=== PATIENT | female | born 1960 | race Caucasian/White ===

== ENCOUNTER 2017-12-05 11:00 | Outpatient (RCR) | payer MEDICAID, SELFPAY ==
--- NOTE | 2017-10-26 11:02 | HP.OTEVAL_ITS ---
Patient's Visit Information MARIA ESTHER PERAZA is a 57 year old F, referred to Occupational Therapy by Willard Epperson, with a diagnosis of Multiple Scerlosis. Date of Evaluation: 10/26/17 Occupational Therapist: Ariela Cao - Subjective Subjective: Maria Esther noted that diagnosed with MS two years ago. She noted that Dr. Epperson ordered therapy. Noted that dislocated shoulder a long time ago. Notes sister in [place] that she seems to indicate sister helps at times, brother who live [facility], and youngest brother this past July and she noted I took it pretty hard. I still think of him often. Notes she is not working and has previously worked at [employer] at [facility]. - Pain Right Shoulder 3 Pain Intensity Range: 3, 5 Left Shoulder 0 Pain Intensity Range: 0 Bilateral Hand 0 Pain Intensity Range: 3 - ROM Shoulder: WFL Elbow: WFL Forearm: WFL Wrist: flex R 0-70, L 0-58; ext R 0-56, L 0-59 ROM Comments: Increased difficulty following 1 step commands with visual demo. Need 1 steps with phyiscal prompt. - Strength Shoulder: R 3+/5; L 3+/5 Elbow: R 3+/5; L 3+/5 Forearm: R 3+/5; L 3+/5 Statistical Methods Professor: R 44, L 43 Lateral Pinch: R 12, L 11 Tripod Pinch: R 12, L 10 Tip-to-Tip Pinch: R 9; L 6 - Edema Other: none noted at this time. - Sensation Thumb: R 3.61, L 3.61 Index: R 3.84, L 3.22 Middle: R 3.84, L 4.08 Ring: R 3.22, L 4.17 Little: R 2.83 , L 4.08 - Cognitive Skills Follows Directions: Yes - 1-2 step only Oriented to (Check all that apply): Place Cognitive Comments: ST to treat; OT to supplement carryover during self-care tasks. - Nine Hole Peg Right: 33.32 s Left: 37.99s - DASH-Disabilities of Arm, Shoulder& Hand DASH Sum: 59 - Goals Goal:: Maria Esther to increase B UE strength to 4/5 for B UE to promote increased endurance and strength for ADL/IADls 4/5 trials 80% of the time time by d/c. Goal:: Patty to be mod I to understand and compensate for some decrease sensation in B hands to maintain (I) and promote safety 4/5 trials 805 of th etime by d/c. Goal:: Maria Esther to be mod I to complete energy conservation techniques with use of a/e and compensations as needed to return to all ADL/IADLs with minimal fatgiue throughout the day by d/c. Goal:: Maria Esther to be mod I to follow through with techniques provide to maximize (I) and minimize fatigues for all ADL/IADLS 80% of the time by d/c. - Rehabilitation General Assessment: Maria Esther arrived for OT eval on this date. She noted diagnosed with MS two years ago. She has made some compensations with self-care routine but noted that fatigue is limiting her. She currently used hand-held shower head, straight cane for mobility with hand held assist, shower chair, life alert button, 1x grab bar in tub, & standard commode. OT to work on structuring self-care routine to promote maximize (i) and minimizing fatigue. Will educate on further a/e and compensations for home. Additionally, will be addressing UE strength in progressive but tolerable manner with MS related symptoms to help promote endurance needed for ADL/IALDs. POC established for 1x 4 weeks for 30-60 mins sessions. Rehabilitation Potential: Fair - Anticipated Interventions Anticipated Interventions: A/AAROM/PROM, Strengthening, Joint Protection/Energy Conservation, Ergonomic Education, Fine Motor Coord/Jon, Neuro Reeducation, ADL Training, Education re assistive Equipment, Caregiver Training, Home Program - Visit Plan Frequency: 1x/Week Duration: 4 Weeks General Plan: Maria Esther to complete OT for energy conservation training, education and use of compensations and adaptations through a/e and other related techniques, as well as progressive B UE strengthening program with special consideration to symptoms of fatigue to promote increased endurance, strength, and further managing symptoms of fatigue. TEXT: Thank you for the opportunity to evaluate your patient. For Medicare and Medicare HMO plans, please review the plan of care and approve it. It will need to be FAXED BACK to us at [phone] for Medicare purposes. Please let me know if there are questions or concerns regarding this plan of care. Physician Signature: Date:
--- NOTE | 2017-10-26 12:44 | HP.PTEVAL ---
Patient's Visit Information BRITNEY PERAZA is a 57 year old F referred to Physical Therapy by Willard Epperson with a diagnosis of MULTIPLE SLCEROSIS. Date of Evaluation: 10/26/17 Physical Therapist: Valerie Collins - Visit Plan Frequency: 2x /Week Duration: 4-6 Weeks Plan: POSTURE CORRECTION/STRENGTHENING, INSTRUCTION IN APPROPRIATE BODY MECHANICS AND ACTIVITY MODIFICATIONS. *GAIT AND TRANSFER TRAINING* DLS STARTING WITH A NEUTRAL SPINE PROGRESSING ROM TOLERATED. PAWAN LE ROM, STRETCHING AND STRENGTHENING. HEP INSTRUCTION. - Subjective Subjective: Diagnosis: MS. Work/Leisure: UNEMPLOYEED. Disability: NO. Present symptoms: RIGHT HIP, THIGH AND LEG PAIN. PATIENT DENIES PAWAN LE NUMBNESS AND TINGLING. DENIES LBP BUT STATES SHE USE TO HAVE LBP. DENIES FOOT PAIN, NUMBNESS OR TINGLING. STATES SHE GETS LEG CRAMPS A LITTLE BIT. Present since: COUPLE OF YEARS. Pain Scale: Worst - 5/10 Least - 3/10 - CONSTANT. Currently: 09/12. Commenced as a result of: NO APPARENT REASON BUT DOES REPORT SHE DISLOCATED HER KNEE A LONG TIME AGO WORKING. Symptoms at onset: RIGHT HIP. Worse: WEATHER, GETTING OLD, WHEN I GET TIRED, TOO MUCH STANDING AND WALKING. Better: SITTING DOWN, ASPER CREAM. Disturbed sleep: NO. Previous history/Previous treatment: I'VE BEEN TO A [facility] 3 OR 4 TIMES BUT I WILL NEVER GO AGAIN. SHE THINKS IT WAS ABOUT 5 YEARS AGO THAT SHE WENT FOR HER BACK. Coughing/sneezing/straining: NEGATIVE. Gait: PATIENT REPORTS SHE GOT A WALKER ABOUT 5 YEARS AGO BUT IT DOESN'T HAVE WHEELS. SHE REPORTS SHE USES IT IN HER HOUSE BUT SHE TAKES THE CANE WHEN SHE GOES OUT BECAUSE THE WALKER IS A PAIN IN THE BUTT. Difficulty initiating urinatin: SOMETIMES. Accidents: NO. Unexplained weight loss: NO. Imaging: PATIENT REPORTS RECENT MRI FOR MS IN [place] AT [facility]. PMH/Recent major surgery: MS. DEPRESSION. HEART CATH - TAKES ATENOLOL. OTHER: PATIENT REPORTS SHE DROVE HERSELF HERE TODAY AND PARKED CLOSE POSSIBLE AND WALKED IN WITH HER CANE FROM THE PARKING LOT BY HERSELF. LIVES ALONE. DRIVES. GROCERY SHOPS, COOKS AND CLEANS BUT HAS HELP WITH CLEANING. - Objective Sitting/Standing Posture: POOR. SLOUCHED. FORWARED HEAD, ROUNDED SHOULDERS AND INCREASED KYPHOSIS. POOR POSTURAL STRENGTH. Other Observations: PATIENT WAS WALKED BY THIS THERAPIST FROM OT TO A PT TREATMENT ROOM AND REQUIRED +1 ASSIST IN ADDITION TO USE OF HER CANE TO MAINTAIN BALANCE. PATIENT HAD SPEECH THERAPY AND OT CONSULTS PRIOR TO THIS PT EVAL TODAY. SHE WALKS WITH INCREASED TRUNK FLEX, DECREASED PAWAN STRIDE LENGTH, DECREASED CADANCE AND GREATER DIFFICULTY ADVANCING LLE THAN RIGHT THEREFORE USES CANE IN THE RIGHT HAND TO HELP THE LLE. GAIT TRAINIING WITH FWW. SHE HAS A STANDARD WALKER AT HOME. SHE DOES MUCH BETTER WITH THE WALKER THAN THE CANE. RECOMMEND GAIT TRAINING WITH FWW FOR SAFETY. PATIENT GETS TOO FAR BEHIND WALKER AND BENDS TOO FAR FORWARD WITHOUT CUEING. STEPS NOT TESTED. Motor deficit: TRUNK AND PAWAN LE WEAKNESS LLE > RLE DESPITE THE FACT THAT THE PAIN IS IN HER RIGHT LE. RIGHT LE: HIP 4-/5, KNEE EXT 4/5, KNEE FLEX 4-/5, ANKLE DORSIFLEX 4-/5. LLE: HIP 3+/5, KNEE EXT 3-/5, KNEE FLEX 3-/5, ANKLE DORSIFLEX 3-/5. ROM deficit: TIGHT PAWAN HIP FLEXORS, HS'S AND GASTROC SOLEUS COMPLEX'S. Core strength: POOR. Palpation: NO ACUTE TENDERNESS IN TRUNK OR LE'S. Transfers: INDEP TRANSFER SIT TO SUPINE WITH PATIENT ASSISTING HER LLE ONTO THE TABLE WITH HER UE'S. +1 MIN ASSIST REQUIRED SUPINE TO SIT. INDEP CAR TRANSFERS OBSERVED BY THIS PT. - Goals Goal 1:: INDEP AND SAFE GAIT ON ALL SURFACES WITH LEAST ASSISTIVE DEVICE INCLUDING STEPS. Goal Time Frame: 4-6 Weeks Goal 2:: INCREASE FUNCTION STRENGTH OF TRUNK AND PAWAN LE'S TO EASE ADLS. Goal Time Frame: 4-6 Weeks Goal 3:: INDEP AND SAFE TRANSFERS Goal Time Frame: 4-6 Weeks Goal 4:: INDEP HEP Goal Time Frame: 4-6 Weeks - Rehabilitation Potential Rehabilitation Potential: Fair - Anticipated Interventions Patient/Client Instruction: Educate patient on: Condition, Plan of Care, Risk Factors, Benefits of Fitness Program For the Purpose of:: To improve self management Therapeutic Exercise to Include: Strength training, Endurance training, Balance training, Body mechanics, Postural training, Flexibilty training, Gait and locomotor training, Passive ROM, Active ROM, Dynamic Lumbar Stabilization For the Purpose of:: To increase ROM, To improve muscle performance and motor function, To improve ability to perform ADL's, To increase tolerance to activity/condition/position, To improve ability of physical actions for home/community/work/leisure, To improve gait and locomotor functions Manual Therapy Techniques to Include: Passive ROM, Soft tissue mobilization Comment: STM RIGHT HIP AND LEG. PROM PAWAN LE'S. For the Purpose of:: To decrease pain, To increase ROM Thermo therapy (hot pack): Yes - RLE Ultrasound (thermal/non thermal): Yes - RIGHT HIP For the Purpose of:: To decrease pain Thank you for the opportunity to evaluate your patient. For Medicare and Medicare HMO plans, please review the plan of care and approve it. It will need to be FAXED BACK to us at [phone] for Medicare purposes. Please let me know if there are questions or concerns regarding this plan of care. Physician Signature: Date:
--- NOTE | 2017-10-26 14:36 | HP.SP.AD ---
History - History Date of Eval: 10/26/17 Medical Diagnosis (from RX): Multiple sclerosis (G35) Previous speech therapy: No Other Relevant Medical History/Diagnoses/Surgery: No further reported past medical history. 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 Natural dentition, missing dentition (x3), prior restorative work completed. Mild halitosis. Subjective Dysarthria/Motor - Subjective Subjective: Moderate dysarthria marked by articulatory imprecision with mild hypophonia complicated by tachyphasia, impairing listener comprehension (approx. 50-75% intelligible). Voice Handicap Index (VHI) - I VHI Administered: Yes VHI: Patient completed the Voice Handicap Index, which is a 30 item, self administered questionnaire that asks an individual to describe their voice and the effects of their voice on their life. Three subscales cover the areas of functional, emotional, and physical aspects of the voice disorders. Points from the questions can be combined to assign a total score, or they can be combined by subscale. Results for the VHI are as follows: Date: 10/26/17 - VHI Test Functional: 28 Physical: 23 Emotional: 29 Total Severity Rating: Severe (61-120) - Comments VHI total score: 80 -: Severe Subjective Clinical Impression - Adult Clinical Impression Diplophonia: the presence of two tones or pitches heard simultaneously during phonation: Present Strained-strangled: perceived strain or pushed vocal quality at the onset of and during phonation: Present - Vocal Resonance Hypernasality: excessive nasality resulting in increased sound diverted nto the nasal airway: Present Objective Voice - Objective data Objective Data: Objective data: Sound pressure level (SPL acoustic correlation of vocal loudness) was measured with a sound level meter at a distance of 40 cm from the patient's mouth. Average conversational loudness is 70-80 dB and sustained phonation duration is 15 to 20 seconds for a typical adult. Sustained Phonation Intensity (dB SPL): 87.63 Sustained Phonatin duration (seconds): 17.44 Is the individual stimulable to increase vocal intensity: Yes Vocal Intensity at Sentence Level (dB SPL): 67.79 Vocal Intensity at Paragraph Level (dB SPL): 67.36 Vocal Intensity at Conversational Level (dB SPL): 63.85 Plan - Plan Plan: Pt. requires continued skilled speech-language intervention targeting moderate dysarthria secondary to the diagnosis of multiple sclerosis. Pt. further reporting difficulties with memory and attention, though prefers to focus on voice / articulation deficits prior to further workup targeting cognitive communication abilities. Further recommend completion of a modified barium swallow study due in part to the significance of dysarthria, diagnosis of multiple sclerosis, compromised cognition, and presence of sialorrea, all indicators for dysphagia and higher likelihood for silent component. Pt. further demonstrating gait abnormalities, and suboptimal oral health (halitosis), suggesting lower tolerance to tracheobronchial infiltration and higher risk factors for aspiration pneumonia. - Recommendations MBS: Yes Treatment Warranted: Yes - Frequency Frequency: 1x/Week Duration: 6 Months - Prognosis Prognosis: Excellent - Goals that are Established: Determination:: Goals will be added/modified as deemed necessary and appropriate. Therapy will be discontinued when results of re-evaluation indicate therapy is no longer needed or lack of progress has been documented. - Goal #1-5 Goal #1: Pt. will utilize recommended compensatory articulation techniques (increased vocal intensity, reduced rate of speech, over-articulation) to facilitate improved speech intelligibility during expressive communication attempts with both familiar and unfamiliar listeners to facilitate highest level of independent functioning within the home environment and community independently / with less than 2 cues during session, in 2 out of 3 sessions. Goal #2: Pt. will demonstrate increased average vocal intensity levels during conversational speech exercises to 68-73 dB by implementation of established breathing techniques and completion of vocal strengthening exercises to facilitate improved subglottal air pressure and improved speech intelligibility during longer expressive communication attempts, with minimal cueing provided by the clinician in 2 out of 3 sessions. Education - Patient has Indicated that the Following Identified Educational Needs: None The Patient has indicated that they have no educational or learning abilities that may effect their care.: Yes - Patient Instruction Patient Education: Diagnosis, Treatment Plan Person Taught: Patient Teaching Method: Discussion Response to teaching: Verbalize understanding
--- NOTE | 2017-12-05 12:01 | HP.PTDCSUM_ITS ---
HP - PT D/C Summary It has been my pleasure to treat BRITNEY PERAZA under orders from Willard Epperson, for the diagnosis of MULTIPLE SLCEROSIS for a total of 5 visit(s). Discharge Date: 12/05/17 Please see the following information for a summary of their discharge status. - Subjective Subjective: PATIENT REPORTS SHE DOES NOT WANT TO HAVE ANYMORE PT. STATES HER RIGHT HIP ISN'T BOTHERING HER MUCH NOW. PATIENT DENIES ANY RECENT FALLS. STATES SHE IS DOING THE EX'S WE GAVE HER. WORKING ON GETTING FWW. - Pain Right Hip Pain Intensity (Out of 10): 0 - Overall Improvement % Improvement: 50 - Objective Objective/Function: PATIENT WAS WALKED BY THIS THERAPIST FROM OT TO A PT TREATMENT ROOM AND REQUIRED SUPERVISION TO CONTACT GUARD ASSIST IN ADDITION TO USE OF HER CANE TO MAINTAIN BALANCE. SHE WALKS WITH INCREASED TRUNK FLEX, DECREASED PAWAN STRIDE LENGTH, DECREASED CADANCE AND GREATER DIFFICULTY ADVANCING LLE THAN RIGHT THEREFORE USES CANE IN THE RIGHT HAND TO HELP THE LLE. PATIENT REPORTS SHE HAS NOT GOT A FWW YET BUT SHE CALLED [facility] AND WILL FOLLOW UP. SHE HAS A STANDARD WALKER AT HOME. SHE IS STILL UNSAFE WITH THE CANE. RECOMMEND GAIT TRAINING WITH FWW FOR SAFETY AGAIN. Motor deficit: TRUNK AND PAWAN LE WEAKNESS LLE > RLE DESPITE THE FACT THAT THE PAIN IS IN HER RIGHT LE. RIGHT LE: HIP 4-/5, KNEE EXT 4/5, KNEE FLEX 4-/5, ANKLE DORSIFLEX 4-/5. LLE: HIP 3+/5, KNEE EXT 3-/5, KNEE FLEX 3-/5, ANKLE DORSIFLEX 3-/5. ROM deficit: TIGHT PAWAN HIP FLEXORS, HS'S AND GASTROC SOLEUS COMPLEX'S. Core strength: POOR. Palpation: NO ACUTE TENDERNESS IN TRUNK OR LE'S. Transfers: INDEP TRANSFER SIT TO SUPINE WITH PATIENT ASSISTING HER LLE ONTO THE TABLE WITH HER UE 'S. INDEP SUPINE TO SIT TRANSFER DEMONSTRATED TODAY. HEP - PATIENT ABLE TO DEMONSTRATE INDEP HEP EVEN WITHOUT SHEETS TODAY. PATIENT CONTINUES TO USE CANE INSTEAD OF WALKER OUTSIDE HOME DESPITE RECOMMENDATIONS FOR WALKER BUT IS WORKING ON GETTING A FWW WHICH I THINK WILL BE MORE AMENABLE TO PATIENT. - Goals Goal 1:: INDEP AND SAFE GAIT ON ALL SURFACES WITH LEAST ASSISTIVE DEVICE INCLUDING STEPS. Goal Progress: Not Progressing Goal 2:: INCREASE FUNCTION STRENGTH OF TRUNK AND PAWAN LE'S TO EASE ADLS. Goal Progress: Not Progressing Goal 3:: INDEP AND SAFE TRANSFERS Goal Progress: Not Progressing Goal 4:: INDEP HEP Goal Progress: Progressing - Plan Plan: D/C AT PATIENTS REQUEST. - D/C Information If there are questions or concerns regarding this patient's physical therapy, please feel free to call me at [phone]. Thank you for the referral of this patient. Sincerely, Valerie Collins
--- NOTE | 2017-12-05 12:27 | HP.OTDCSUM_ITS ---
HP - OT D/C Summary It has been my pleasure to treat MARIA ESTHER PERAZA under orders from Willard Epperson, for the diagnosis of Multiple Scerlosis for a total of 5 visit(s). Please see the following information for a summary of their discharge status. - Overall Improvement % Improvement: 10 - Objective Objective/Function: Strength measurements as follows: B UE shoulder 3+/5, branch specialist R 56, L 45; lateral R 13, L 9; three jaw R 10, L 8; pincer R 9 L 4. ROM is WFL. Fatigue is limiting. Progress has plateaued. Dash scores has increased from 56 to 86 indicating increased difficulty with functional tasks with B UE and decline in perceived fx. - Goals Patient Goals: Regain Mobility, Regain Strength, Decrease Pain, Decrease Swelling/Stiffness, Improve Fine Motor Skills, Be More Independent in ADLS, Resume Former Household Responsibilities (Cooking,Cleaning,Yard, etc.), Resume Hobbies Other: Edcuated and practice a/e and compensations to increased energy conservation techniques. Goal:: Maria Esther to increase B UE strength to 4/5 for B UE to promote increased endurance and strength for ADL/IADls 4/5 trials 80% of the time time by d/c. Goal:: Patty to be mod I to understand and compensate for some decrease sensation in B hands to maintain (I) and promote safety 4/5 trials 805 of th etime by d/c. Goal:: Maria Esther to be mod I to complete energy conservation techniques with use of a/e and compensations as needed to return to all ADL/IADLs with minimal fatgiue throughout the day by d/c. Goal:: Maria Esther to be mod I to follow through with techniques provide to maximize (I) and minimize fatigues for all ADL/IADLS 80% of the time by d/c. - Plan Plan: She will be d/c'd on this date. Progress has plateaued. She would like to discontinue therapy at this time. Pt. reports and OT has observed that fatigue is limiting her as trip into therapy sessions is exhausting and PT often scheduled prior to OT leaves her tired for OT session. She has been provided HEP to complete to promote hand and UE strength and ROM through AROM exercises. She is to complete at home butas tolerated. Educated on strategies on self-care routine and created schedule based on routine to promote decrease fatiguing t/o morning. OT has spent majoirity of time educating and working with client to decrease fatigue during self-care regimine while at clinic and she is responsible to implement at home. She has verbalized understanding of al topics discussed. She is to call with questions concerns. - D/C Information If there are questions or concerns regarding this patient's occupational therapy , please fell free to call me at [phone]. Thank you for the referral of this patient. Sincerely, Ariela Cao
--- NOTE | 2017-12-14 10:32 | HP.SP.DC ---
ST Discharge Summary - Discharged: Discharge: Spoke with the Patient via telephone this date, reports no desire to advance with skilled speech-language intervention targeting dysarthria and / or dysphagia, reports feeling as though her voice is functional, and would prefer to hold intervention at this time. Encouraged the Patient to contact her physician if any further skilled speech-language intervention is desired, as the Patient presents with overt communication deficits in addition to suspected dysphagia, with clinical recommendations for a modified barium swallow study.
== END 2017-12-05 19:00 | disposition home or self-care (01) ==
LOC: PT 11:00
PROVIDERS: Family Provider Family Medicine; PCP Family Medicine; Visit Provider Family Medicine
DX: G35 Multiple sclerosis (principal)
CPT/HCPCS: 92523; 97110; 97162; 97164; 97166; 97530

== ENCOUNTER → 2018-04-16 14:49 | Outpatient (CLI) | payer MEDICAID, SELFPAY ==
[2018-04-16 18:17] LABS: Vitamin D,25 Hydroxy 59.7 ng/mL (29.95-100.01)
== END ==
PROVIDERS: Family Provider Family Medicine; PCP Family Medicine
DX: G35 Multiple sclerosis (principal); G83.10 Monoplegia of lower limb affecting unspecified side
CPT/HCPCS: 36415; 82306; 97116

== ENCOUNTER 2018-05-21 14:00 | Outpatient (RCR) | payer MEDICAID, SELFPAY ==
--- NOTE | 2018-02-02 14:49 | HP.PTEVAL_ITS ---
Patient's Visit Information BRITNEY PERAZA is a 57 year old F referred to Physical Therapy by Willard Epperson with a diagnosis of MULTIPLE SCLEROSIS AND PARESIS OF LOWER EXTREMITY.. Date of Evaluation: 02/02/18 Physical Therapist: Valerie Noe Visit Plan Frequency: 1x/Week Duration: 2-4 Months Plan: GAIT TRAINING. - Subjective Subjective: Diagnosis: MS. Work/Leisure: UNEMPLOYEED. Disability: NO. Present symptoms: RIGHT HIP, THIGH AND LEG PAIN. PATIENT DENIES PAWAN LE NUMBNESS AND TINGLING. DENIES LBP BUT STATES SHE USE TO HAVE LBP. DENIES FOOT PAIN, NUMBNESS OR TINGLING. STATES SHE GETS LEG CRAMPS A LITTLE BIT. Present since: COUPLE OF YEARS. Pain Scale: Worst - 5/10 Least - 3/10 - CONSTANT. Currently: 09/12. Commenced as a result of: NO APPARENT REASON BUT DOES REPORT SHE DISLOCATED HER KNEE A LONG TIME AGO WORKING. Symptoms at onset: RIGHT HIP. Worse: WEATHER, GETTING OLD, WHEN I GET TIRED, TOO MUCH STANDING AND WALKING. Better: SITTING DOWN, ASPER CREAM. Disturbed sleep: NO. Previous history/Previous treatment: I'VE BEEN TO A ASSOCIATE PROFESSOR OF ARCHAEOLOGY 3 OR 4 TIMES BUT I WILL NEVER GO AGAIN. SHE THINKS IT WAS ABOUT 5 YEARS AGO THAT SHE WENT FOR HER BACK. Coughing/sneezing/straining: NEGATIVE. Gait: PATIENT REPORTS SHE GOT A WALKER ABOUT 5 YEARS AGO BUT IT DOESN'T HAVE WHEELS. SO YOU HAVE PURCHASED A ROLLATOR. THE ROLLATOR REALLY HELPS. USING IT ALL THE TIME AT HOME. STILL TAKES CANE WHEN SHE GOES OUT BUT SHE DOESN'T LIKE DRAGGING THE THING AROUND. Difficulty initiating urinatin: SOMETIMES. Accidents: NO. Unexplained weight loss: NO. Imaging: PATIENT REPORTS RECENT MRI FOR MS IN [place] AT [facility]. PMH/Recent major surgery: MS. DEPRESSION. HEART CATH - TAKES ATENOLOL. OTHER: PATIENT REPORTS SHE CAME BY [facility] TODAY INSTEAD OF DRIVING BECAUSE HER LEG WAS ACTING UP. LIVES ALONE. DRIVES. GROCERY SHOPS, COOKS AND CLEANS BUT HAS HELP WITH CLEANING. - Objective PATIENT WAS WALKED BY THIS THERAPIST FROM OT TO A PT TREATMENT ROOM AND REQUIRED SUPERVISION TO CONTACT GUARD ASSIST IN ADDITION TO USE OF HER CANE TO MAINTAIN BALANCE. SHE WALKS WITH INCREASED TRUNK FLEX, DECREASED PAWAN STRIDE LENGTH, DECREASED CADANCE AND GREATER DIFFICULTY ADVANCING LLE THAN RIGHT THEREFORE USES CANE IN THE RIGHT HAND TO HELP THE LLE. SHE WAS RECENTLY HERE FOR PT AND SHE IS STILL UNSAFE WITH THE CANE. THIS PT RECOMMENDS PATIENT BRINGS ROLLATOR TO NEXT VISIT AND USES WALKER OR ROLLATOR VS CANE FOR SAFETY. Motor deficit: TRUNK AND PAWAN LE WEAKNESS LLE > RLE DESPITE THE FACT THAT THE PAIN IS IN HER RIGHT LE. RIGHT LE: HIP 4-/5, KNEE EXT 4/5, KNEE FLEX 4-/5, ANKLE DORSIFLEX 4-/5. LLE: HIP 3+/5, KNEE EXT 3-/5, KNEE FLEX 3-/5, ANKLE DORSIFLEX 3-/5. ROM deficit: TIGHT PAWAN HIP FLEXORS, HS'S AND GASTROC SOLEUS COMPLEX'S. Core strength: POOR. Palpation: NO ACUTE TENDERNESS IN TRUNK OR LE'S. Transfers: INDEP TRANSFER SIT TO SUPINE WITH PATIENT ASSISTING HER LLE ONTO THE TABLE WITH HER UE'S. INDEP SUPINE TO SIT TRANSFER DEMONSTRATED TODAY. - Goals Goal 1:: DECREASE C/O RIGHT LE PAIN Goal Time Frame: 8-12 Weeks Goal 2:: PATIENT WILL BE INDEP AND SAFE WITH GAIT ON LEVEL SURFACES AND UP AND DOWN STEPS WITH LEAST ASSISTIVE DEVICE. Goal Time Frame: 8-12 Weeks Goal 3:: INDEP WITH HEP Goal Time Frame: 8-12 Weeks - Rehabilitation Potential Rehabilitation Potential: Fair - Anticipated Interventions Patient/Client Instruction: Educate patient on: Condition, Plan of Care, Risk Factors, Benefits of Fitness Program For the Purpose of:: To improve self management Therapeutic Exercise to Include: Strength training, Balance training, Flexibilty training, Gait and locomotor training, Active ROM, Dynamic Lumbar Stabilization For the Purpose of:: To decrease pain, To improve muscle performance and motor function, To increase tolerance to activity/condition/position, To improve ability of physical actions for home/community/work/leisure, To improve gait and locomotor functions, To improve safety with gait Thank you for the opportunity to evaluate your patient. For Medicare and Medicare HMO plans, please review the plan of care and approve it. It will need to be FAXED BACK to us at [phone] for Medicare purposes. Please let me know if there are questions or concerns regarding this plan of care. Physician Signature: Date:
--- NOTE | 2018-05-21 15:18 | HP.PTDCSUM ---
HP - PT D/C Summary It has been my pleasure to treat BRITNEY PERAZA under orders from Willard Epperson, for the diagnosis of MULTIPLE SCLEROSIS AND PARESIS OF LOWER EXTREMITY. for a total of 12 visit(s). Discharge Date: 05/21/18 Please see the following information for a summary of their discharge status. - Subjective Subjective: PATIENT REPORTS SHE CAN GET AROUND BETTER AND WALK BETTER. SHE REPORTS HER RIGHT LEG PAIN HAS DECREASED AND SHE IS GOING TO START ANOTHER NEW MEDICINE TOMORROW. SHE REPORTS SHE IS READY TO BE DISCHARGED FROM THERAPY. SHE REPORTS SHE USUALLY USES HER CANE NOW BUT SHE HAS HER WALKER IF SHE THINKS SHE NEEDS IT. SHE REPORTS UP TO 4/10 RIGHT HIP PAIN NOW. SHE REPORTS HER TINGLING IN HER HANDS AND FEET HAS LEFT. - Overall Improvement % Improvement: 50 - Objective Objective/Function: PATIENT DEMONSTRATES INDEP TRANSFERS AND GAIT TODAY INTO PT WITHOUT LOB. SHE AMBULATES INDEP'LY INTO PT ABOUT 300 FEET WITH A STRAIGHT CANE AND GOOD SEQUENCING. AFTER ABOUT 250 FEET SHE STOPPED TO REST DUE TO RIGHT HIP PAIN AND THEN SHE STOPPED A SECOND TIME FOR ABOUT A MINUTE BEFORE GETTING TO THE TREATMENT ROOM. SHE STARTS TO SIT TOO QUICKLY BEFORE GETTING ALL THE WAY TO THE CHAIR PUTTING HER AT RISK OF FALLING. SHE REPORTS SHE IS A LOT BETTER AND READY TO STOP PT. UPON EXAM, Motor deficit: TRUNK AND PAWAN LE WEAKNESS LLE > RLE DESPITE THE FACT THAT THE PAIN IS IN HER RIGHT LE. RIGHT LE: HIP 4/5, KNEE EXT 4/5, KNEE FLEX 4/5, ANKLE DORSIFLEX 4/5. LLE: HIP 3+/5, KNEE EXT 3-/5, KNEE FLEX 3-/5, ANKLE DORSIFLEX 3-/5. ROM deficit: TIGHT PAWAN HIP FLEXORS, HS'S AND GASTROC SOLEUS COMPLEX'S. Core strength: POOR. Palpation: NO ACUTE TENDERNESS IN TRUNK OR LE'S. Transfers: INDEP TRANSFER SIT TO SUPINE WITH PATIENT ASSISTING HER LLE ONTO THE TABLE WITH HER UE'S. INDEP SUPINE TO SIT TRANSFER DEMONSTRATED TODAY BUT WITH DIFFICULTY. LEFS HAS IMPROVED FROM 41 TO 57 BUT THIS PT QUESTIONS HER ANSWERS. AT CONCLUSION OF SESSION AFTER WALKING WITH THE CANE AND FLYING SQUAD SALESPERSON FROM TREATMENT ROOM TO LOBBY PATIENT AGAIN STARTED TO SIT TOO QUICKLY AND NEEDED MIN ASSIST TO CHAIR SAFETLY. THIS PT RECOMMENDS WALKER VS CANE FOR SAFETY AND PATIENT SOMEWHAT AGREEABLE BUT STILL WANTING TO USE CANE. - Goals Goal 1:: DECREASE C/O RIGHT LE PAIN Goal Progress: Goal Met Goal 2:: PATIENT WILL BE INDEP AND SAFE WITH GAIT ON LEVEL SURFACES AND UP AND DOWN STEPS WITH LEAST ASSISTIVE DEVICE. Goal Progress: Not Progressing Goal 3:: INDEP WITH HEP Goal Progress: Not Progressing - Plan Plan: D/C AT PATIENTS REQUEST AND DUE TO ONLY MINIMAL PROGRESS. - D/C Information If there are questions or concerns regarding this patient's physical therapy, please feel free to call me at [phone]. Thank you for the referral of this patient. Sincerely, Valerie Collins, PT, Cert MDT
== END 2018-05-21 19:00 | disposition home or self-care (01) ==
LOC: PT 14:00
PROVIDERS: Family Provider Family Medicine; PCP Family Medicine; Visit Provider Family Medicine
DX: G35 Multiple sclerosis (principal); G83.10 Monoplegia of lower limb affecting unspecified side
CPT/HCPCS: 97116; 97162; 97530

== ENCOUNTER 2018-07-03 19:15 | Emergency (ER) | payer MEDICAID, SELFPAY ==
[2018-07-03 19:17] VITALS: BP 132/85; PULSE 100; RESP 23; TEMP 36.7; O2SAT 99; BMI 21.4
--- NOTE | 2018-07-03 19:23 | CT_ITS ---
STUDY: CT BRAIN WITHOUT CONTRAST REASON FOR EXAM: Female, 58 years old. Dizziness RADIATION DOSAGE (If Supplied By Facility): CTDIvol = ( 44.99 ) mGy, DLP = ( 796.11 ) mGycm TECHNIQUE: Transaxial CT imaging of the brain was performed without administration of intravenous contrast material. Individualized dose optimization techniques were used for this CT. COMPARISON: None. FINDINGS: Normal soft tissue structures. Normal calvarium. There is mild cerebral atrophy with widening of the extra-axial spaces and ventricular dilatation. There are areas of decreased attenuation within the white matter tracts of the supratentorial brain, consistent with microvascular disease changes. Normal basal ganglia and thalami. Normal brainstem. Normal cerebellum. There is no intracranial hemorrhage. There are no findings of an acute ischemic infarction. Normal visualized paranasal sinuses. CT/Brain/Head without Contrast IMPRESSION: Chronic involutional changes of the brain. Electronically Signed: Erick Lim MD at 20:03 EST , Service support ,
--- NOTE | 2018-07-03 19:23 | EKG12_ITS ---
Test Reason : DIZZY Blood Pressure : / mmHG Vent. Rate : 099 BPM Atrial Rate : 099 BPM P-R Int : 164 ms QRS Dur : 072 ms QT Int : 330 ms P-R-T Axes : 033 -36 060 degrees QTc Int : 423 ms Normal sinus rhythm with sinus arrhythmia Possible Left atrial enlargement Left axis deviation Abnormal ECG Confirmed by BECKA BOO, MALLORIE ([id number]), associate entertainment editor EDGAR MADRID ([id number]) on 07/06/2018 3:28:31 PM Referred By: AMEE Confirmed By:MALLORIE JOVEL MD
--- NOTE | 2018-07-03 19:26 | ED.RN ---
NO OLD EKGS IN MUSE
[2018-07-03 19:40] LABS: Absolute Lymphocyte Count 1.89 X10^3/ul (0.83-4.51); Absolute Neutrophil Count 5.8 X10^3/uL (2.0-7.7); Basophil# 0.06 X10^3/uL; Basophil% 0.7 % (0-1); Eosinophil# 0.12 X10^3/uL; Eosinophils% 1.4 % (0-5); Hematocrit 46.3 % (37-47); Lymphocyte # 1.89 X10^3/ul (4.0); Lymphocyte % 21.9 % (19-41); Mean Corp Hgb Conc 30.2 g/gl (32-36); Mean Corpuscular Hgb 29.4 pg (27.0-32.0); Mean Corpuscular Volume 97.3 fL (81-99); Mean Platelet Vol. 9.2 fl (6.2-12.0); Monocyte# 0.77 X10^3/uL; Monocyte% 8.9 % (0-10); Neutrophil # 5.77 X10^3/uL (2.7-7.7); Neutrophil % 66.9 % (47-70); Platelet Count 393 K/mm3 (150-450); RBC Distribution Width CV 12.6 % (11.6-14.6); RBC Distribution Width SD 44.5 fl (35.1-43.9); Red Blood Count 4.76 M/mm3 (4.2-5.4); White Blood Count 8.6 K/mm3 (4.4-11.0)
[2018-07-03 19:42] LABS: POSITIVE COUNT NO; POSITIVE DIFFERENTIAL NO; POSITIVE MORPHOLOGY NO
[2018-07-03 19:54] LABS: AST(SGOT) 12 U/L (15-37); Alanine Aminotransfer ALT/SGPT 22 U/L (13-56); Albumin, Serum 3.6 g/dL (3.2-5.0); Alkaline Phosphatase 110 U/L (45-117); Anion Gap 6 (5-15); BUN 33 mg/dL (7-18); BUN/Creat Ratio 49.5 RATIO (10-20); Calcium,Total 9.3 mg/dL (8.5-10.1); Chloride 109 mmol/L (98-107); Creatinine, Serum 0.67 mg/dL (0.55-1.02); EST Glomerular Filtration Rate 96 mL/min (>60); Est Glom Filt Rate - Afr Amer 116 mL/min (>60); Estimated Creatinine Clearance 77.11 ml/min; Globulin 3.5 g/dL (2.2-4.2); Glucose 115 mg/dL (74-106); Potassium 3.7 mmol/L (3.5-5.1); Protein, Total 7.1 g/dL (6.4-8.2); Sodium Level 145 mmol/L (136-145)
[2018-07-03] MEDS: 0.9% Normal Saline 1,000 ML 1000 ML IV (20:08)
[2018-07-03 20:28] LABS: Mucous, Urine 0 SEEN /hpf (<or=2+); Red Blood Cells-Urine 0 SEEN /hpf (0-5); Squamous Epithelial Cells - UA 0 SEEN /hpf (5-10); White Blood Cells 0 SEEN /hpf (0-5)
[2018-07-03 20:32] LABS: Color, Urine Yellow (Yellow); Glucose, Dipstick Normal (Normal); Ketone-Dipstick Negative (Negative); Leukocyte Esterase-Dipstick Negative /ul (Negative); Nitrite-Dipstick Positive (Negative); Occult Blood-Urine 10 /ul (Negative); Protein-Dipstick Negative (Negative); Specific Gravity, Urine 1.015 (1.002-1.030); Urine Bilirubin Dipstick Negative (Negative); Urine Clarity Sl. Cloudy (Clear); Urine Urobilinogen Normal (Normal); Urine pH 6.5 (5.0 - 8.0)
[2018-07-03 20:40] LABS: Bacteria 3+ /hpf (None Seen)
--- NOTE | 2018-07-03 21:21 | ED.VISSUMM ---
- ER Visit Summary Date of Service: 07/03/18 Chief Complaint: Dizziness History of Present Illness: The patient is a 58 F patient presents to the emergency department dizziness. Patient does have a history of MS. She was recently started on a new medication for her MS. She is also been taking her tizanidine. She states over the past few days, she describes dizziness especially after taking her medications. She feels like it is a sensation of motion. She denies any fevers or chills. She had no nausea or vomiting. She does live by herself. She denies any falls. She still feels like she is getting around her house without issue. Physical Examination: Vital signs reviewed General: Well-nourished, well-developed Head: Normocephalic, atraumatic Eyes: Pupils equal and reactive, extraocular muscles intact Neck, supple, no lymphadenopathy Heart: Regular rate and rhythm Respiratory: No distress, clear bilaterally Abdomen: Soft, nontender, nondistended, no peritoneal signs Back: Nontender Extremities: Nontender, no edema, no cords Skin: Normal color no rash Neuro: Alert and oriented, no focal or lateralizing deficits Test Results: [] Emergency Department Course and Treatment: EKG was obtained on patient arrival. Sinus rhythm without acute ischemic change. IV was established. The patient was given fluids. She did have marked improvement of her symptoms. Head CT shows chronic change but no acute abnormalities. The rest of her labs are unremarkable. I did discuss patient care with her sister who is a nurse in [place] that helps the patient with her medications. My suspicion is that this is likely medication side effect. I am going to have her half her tizanidine dose for the next few days to prevent any acute withdrawal. The patient ambulated with her walker without issue. She is steady on her feet. She feels well enough to go home and I feel this is reasonable. Treatment Plan: [] Disposition: Discharge Impression: Dizziness This note was generated with [employer] dictation software. It may contain incorrect words, spelling, and punctuation that were not noted in review of the chart prior to signing ED Disposition - Plan for ED Patient: Chief Complaint: Dizziness Instructions: ED Dizziness [facility] Referrals: Derrick Hughes MD [Primary Care Provider] - Additional Instructions: Please start using only half of your dose of tizanidine.
[2018-07-03 21:59] VITALS: BP 133/65; PULSE 91; RESP 16; O2SAT 98
== END 2018-07-03 22:00 | disposition home or self-care (01) ==
PROVIDERS: Emergency Provider Emergency Medicine; Family Provider Family Medicine; PCP Family Medicine
DX: R42 Dizziness and giddiness (principal); G35 Multiple sclerosis; Z79.899 Other long term (current) drug therapy
CPT/HCPCS: 70450; 80053; 81001; 85025; 93005; 96360; 99285; J7030; A4216

== ENCOUNTER 2018-10-01 10:45 | Day surgery (SDC) | payer MEDICAID, SELFPAY ==
[2018-10-01] VITALS (7 sets, daily range): BP systolic 124–139; BP diastolic 73–88; PULSE 93–108; RESP 16; TEMP 36.4–37; O2SAT 98–100; BMI 22.1
--- NOTE | 2018-10-01 11:51 | HP.PCM_ITS ---
History and Physical Date of Admission: 10/01/18 HISTORY AND PHYSICAL ? Maria Esther Bowman 1960 ? REFERRING PHYSICIAN: ??Derrick Hughes MD ? CHIEF COMPLAINT: ??Consult (consult Colonoscopy) ? HPI: The patient is a 58 year old female referred for endoscopy. ?Maria Esther notes no history of colon complaints.??Specifically she denies any change in bowel habits, weight changes, blood in stools, black tarry stools or abdominal pain. ?She notes a family history of colon cancer in her mother, diagnosed in her 70s.??The patient??notes no upper GI complaints.??Maria Esther?has??undergone prior endoscopy in [address] Barry and is due for 10 year repeat screening.?? ? The patient is being seen by me today at the request of ?for my opinion and advice regarding screening colonoscopy.??Patient's past medical history is significant for ?multiple sclerosis, which she states was diagnosed two years ago and follows with Dr. Willard Epperson at [place] for this. ?She receives infusions of Ocrevus and is also taking Ampyra and tizanidine. ?She ambulates with assistance of cane and walker. ?She denies any problems with breathing or swallowing. ??Patient states she feels she will be able to tolerate the bowel prep and ambulate to and from her bathroom easily. ?She denies any problems with anesthesia in the past. ? ? PAST?MEDICAL?HISTORY PAST MEDICAL HISTORY Diagnosis Date ? Abdominal pain, right upper quadrant ? ? Allergy, unspecified not elsewhere classified ? ? Multiple sclerosis (HCC) ? ? ? PAST?SURGICAL?HISTORY PAST SURGICAL HISTORY Procedure Laterality Date ? APPENDECTOMY ? ? ? COLONOSCOP W/ OR W/O [facility] SPEC ? 2007 ? Normal - diverticulosis ? PAST SURGICAL HISTORY OF ? ? ? EX. MOLE-face ? PAST SURGICAL HISTORY OF ? ? ? e. back on neck ? PAST SURGICAL HISTORY OF ? ? ? polyp removed from cervix ? REMOVAL OF TONSILS,<12 Y/O ? ? ? Tonsillectomy ? ? CURRENT?MEDICATIONS ? Current Outpatient Prescriptions: Cholecalciferol, Vitamin D3, 5,000 unit cap ? dalfampridine (AMPYRA) 10 mg tablet ? biotin 5,000 mcg subl Dissolve under the tongue. atenolol (TENORMIN) 25 mg tablet Take 1 tablet by mouth once daily. LORazepam (ATIVAN) 0.5 mg tab Take 1 tablet by mouth once daily. As needed for anxiety acetaminophen(TYLENOL 325 MG TAB) Take two(2) tablets every four(4) to six(6) hours as needed for pain. CLARITIN 10 MG TAB ? peg 3350-Electrolytes (GOLYTELY) 236-22.74-6.74 -5.86 gram suspension Take 4,000 mL by mouth one time only for 1 dose. GLUCOSAMINE-CHONDROITIN 500 MG-400 MG CAP Take one(1) tablet two(2) times daily. CALCIUM 500 WITH VITAMIN D 500 MG-125 UNIT TAB Take one(1) tablet daily. MULTIVITAMIN TAB Take one(1) tablet daily. ? No current facility-administered medications for this visit.? ? ALLERGIES:?Ibuprofen; Naproxen Sodium; Norgesic Forte [[id number]]; Penicillins; Sulfa (Sulfonamide Antibiotics); Tetracycline ? PERSONAL HISTORY:? SOCIAL?HISTORY Social History ??Marital status: Single ?Spouse name: ?Years of education: ?Number of children: ? Social History Main Topics ??Smoking status: Never Smoker ?Smokeless tobacco: Never Used ?Alcohol use: No ?Drug use: No ?Sexual activity: No ? Other Topics ?Concern Caffeine Concern ?Yes ? 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 ? FAMILY HISTORY:? FAMILY?HISTORY FAMILY HISTORY Problem Relation Age of Onset ? Heart Father ? ? other (Other) Father ?PARKINSON'S / ? Colon Cancer Mother ?77 ? Breast Cancer Maternal Aunt ? ? Prostate Cancer Paternal Uncle ? ? Prostate Cancer Paternal Uncle ? ? Cancer Maternal Aunt ?bladder ? None Sister ?colon polyp ? None Brother ?colon polyp ? REVIEW OF SYMPTOMS: ??The review of systems data was entered by the nurse and reviewed by me ? Nursing Notes: Aleida Hurley LPN ?06/11/2018 ?9:34 AM ?Signed REVIEW OF SYSTEMS: ?General:???The patient denies fatigue, denies weight loss, denies weight gain, denies feeling hot, and denies feelings of cold. ?Eyes: ?The patient denies glaucoma, denies eye injury/surgery, does not wear glasses or contacts. ?Ear/Nose/Throat: ?The patient NOTES allergies, denies hayfever, denies ear infections, and denies bloody noses. ?Cardiovascular: ?The patient denies chest pain, denies heart disease, denies high blood pressure,denies cardiac stent, denies prior heart attack, NOTES irregular heart beat, denies high cholesterol, ?denies poor circulation, denies heart failure, other cardiac issues, denies claudication, denies cold feet, denies peripheral arterial stent. ?Respiratory: ?The patient denies tuberculosis, denies pneumonia, denies frequent cough, denies pulmonary embolism, denies shortness of breath, and denies coughing up blood. ?Gastrointestinal: ?The patient denies difficulty swallowing, denies acid reflux, NOTES ulcers, denies vomiting, denies jaundice/hepatitis, denies gallbladder problems, denies black or tarry stools, denies hemorrhoids, denies bleeding from rectum, denies diverticulitis, denies constipation, denies diarrhea, denies loss of stool control, and denies hernias. ?Kidney/Bladder: ?The patient denies kidney stones, denies urine infections, and denies bloody urine. ?Skin: ?The patient denies a history of skin cancer, denies bleeding/changing moles, and denies a history of skin rash. ?Neurologic: ?The patient denies a history of epilepsy/convulsions, denies headaches, denies head/spinal injuries, and denies stroke/TIA. ?Psychiatric: ?The patient denies psychiatric medications, denies d epression, and denies voices, denies substance abuse. ?Endocrine: ?The patient denies thyroid disorders, denies diabetes, and denies hormonal problems. ?Hematologic: ?The patient denies a history of bruising, denies bleeding, and denies anemia, denies blood clots. ?Infections: ?The patient denies a history of measles and mumps, denies rheumatic fever, and denies sexually transmitted diseases. ?Musculoskeletal: ?The patient denies back pain/injury, denies back problems, denies sciatica, denies knee/foot trouble, NOTES arthritis, or denies gout. ? ? When was patient's last Mammogram screening? 07/2017 ? ?Last Colonoscopy: ?10 years ago ? Aleida Hurley LPN? I have confirmed and edited as necessary, the PFSH and ROS obtained by others. ? ? PHYSICAL EXAMINATION: ? General: ?The patient is 58 year old female, well nourished, well hydrated in no acute distress. ?Ambulates with assistance of cane and walker.??The patient is oriented to time, place, and person. ? VITALS:?Blood pressure 104/68, pulse 102, temperature 37.3 ?C (99.1 ?F), temperature source Temporal Artery, weight 56.9 kg (125 lb 6.4 oz), last menstrual period 12/04/2008, SpO2 99 %.?Body mass index is 21.19 kg/m?.? ? HEENT: ?Normal cephalic, ataumatic, pupils are equally round, sclera are anicteric, mucous membranes are moist, oropharynx is clear. ?Neck has no masses, asymmetry or lymphadenopathy. ? Respiratory: ?Clear to auscultation and percussion. ?Normal respiratory excursion and pattern. ? Cardiac: ?Examination is regular rate and rhythm. ? Abdominal exam: ?Soft, nontender, ?with no palpable masses. ?No hepatosplenomegaly. ?No palpable hernias. ? Rectal exam:?exam deferred ? Extremities: ?no clubbing, cyanosis or edema. ?No adenopathy. ? Other: ? LABORATORY VALUES: As Noted ? RADIOLOGIC STUDIES: ?As Noted ? ? Assessment ? IMPRESSION:?encounter for screening colonoscopy. ?Multiple sclerosis ? PLAN: ?I have reviewed my findings with Dr. Barry. ?He?plans?to perform lower?endoscopy to be done under Monitored Anesthetic Care. ??We discussed the risks and benefits of the planned endoscopy. ?I have informed the patient that complications can occur including failure to complete the endoscopy and perforation. ?The patient had the opportunity to ask questions concerning the planned endoscopy. ?My staff has also explained the procedure to the patient in understandable terms and has given the patient printed material concerning the procedure. ?The patient freely consents to surgery. ? I plan to use golytely bowel preparation for endoscopy. ?Reviewed importance of good hydration along with bowel prep ? I plan for monitored anesthetic care.? ? Patient verbalized understanding of all above ? Diagnoses:?(Z12.11) Encounter for screening for malignant neoplasm of colon ?(primary encounter diagnosis) (G35) Multiple sclerosis (HCC) ? My findings have been communicated to ?via shared medical record. ?This note will be forwarded to Dr. Derrick Hughes MD. ? Holly Askew PA-C
--- NOTE | 2018-10-01 12:34 | OP.ENDO_ITS ---
10/01/2018 Derrick Hughes [address] [place] [address] Re : Colonoscopy procedure for Maria Esther Bowman Dear Dr. Hughes This procedure was performed on Monday, October 01, 2018. My impressions and recommendations are as follows: Impressions : - Diverticulosis in the sigmoid colon and in the descending colon. - The examination was otherwise normal. - The distal rectum and anal verge are normal on retroflexion view. - No specimens collected. Recommendations : - Discharge patient to home. - Resume previous diet. - Continue present medications. - Repeat colonoscopy in 5 years for screening purposes. My findings are described in the full procedure note, which is enclosed. If I can be of further assistance, please feel free to contact me at Doctor phone number(s): , Work: . Sincerely, Tate Barry MD 10/01/2018 12:33:41 PM This report has been signed electronically.
== END 2018-10-01 13:22 | disposition home or self-care (01) ==
LOC: EN 10:46 → AC 10:47
PROVIDERS: Family Provider Family Medicine; PCP Family Medicine; Referring Provider Family Medicine; Visit Provider Surgery
PROC: 0DJD8ZZ Inspection of Lower Intestinal Tract, Via Natural or Artificial Opening Endoscopic (ICD-10-PCS; CPT 45378; principal; 2018-10-01 11:55)
DX: Z12.11 Encounter for screening for malignant neoplasm of colon (principal); K57.30 Diverticulosis of large intestine without perforation or abscess without bleeding; G35 Multiple sclerosis; Z80.0 Family history of malignant neoplasm of digestive organs; Z79.899 Other long term (current) drug therapy
CPT/HCPCS: 45378; J7120

== ENCOUNTER 2019-06-03 11:00 | Outpatient (RCR) | payer MEDICAID, SELFPAY ==
[2018-10-01 11:04] VITALS: BMI 22.1
--- NOTE | 2019-04-26 15:17 | HP.PTEVAL ---
Patient's Visit Information BRITNEY PERAZA is a 59 year old F referred to Physical Therapy by DIANE BECK1 with a diagnosis of MULTIPLE SCLEROSIS. Date of Evaluation: 04/26/19 Physical Therapist: Valerie Collins, PT, Cert MDT - Visit Plan Frequency: 2x /Week Duration: 4 Weeks Plan: GAIT TRAINING AND PAWAN LE ROM, STRETCHING AND STRENGTHENING HEP INSTRUCTION. - Subjective Findings: Diagnosis: MS. Work/Leisure: UNEMPLOYEED. Disability: NO. Present symptoms: INTERMITTENT RIGHT HIP, THIGH AND LEG PAIN. INTERMITTENT PATIENT DENIES PAWAN LE NUMBNESS AND TINGLING. DENIES LBP BUT STATES SHE USE TO HAVE LBP. DENIES FOOT PAIN, NUMBNESS OR TINGLING. Present since: COUPLE OF YEARS. Pain Scale: Worst - 5/10 Least - 3/10 - CONSTANT. Currently: 08/12. Commenced as a result of: NO APPARENT REASON BUT DOES REPORT SHE DISLOCATED HER KNEE A LONG TIME AGO WORKING. Symptoms at onset: RIGHT HIP. Worse: WEATHER, GETTING OLD, WHEN I GET TIRED, TOO MUCH STANDING AND WALKING. Better: SITTING DOWN. Disturbed sleep: NO. 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 SHE THINKS IT WAS ABOUT 5 YEARS AGO THAT SHE WENT FOR HER BACK. Coughing/sneezing/straining: NEGATIVE. Gait: USING ROLLATOR ALMOST AT ALL TIMES. Difficulty initiating urinatin: NO Accidents: NO. Unexplained weight loss: NO. Imaging: PATIENT REPORTS MRI FOR MS IN [place] AT [facility] AGAIN ABOUT 3 WEEKS AGO - FINE. PMH/Recent major surgery: MS. DEPRESSION. HEART CATH - TAKES ATENOLOL. OTHER: PATIENT REPORTS SHE CAME BY [facility] TODAY. LIVES ALONE. DRIVES. GROCERY SHOPS, COOKS AND CLEANS BUT HAS HELP WITH CLEANING. OTHER: PATIENT REPORTS THAT HER MAIN FORM OF EX RIGHT NOW IS WALKING AND SOME STRETCHES FROM LAST EPISODE OF CARE WITH PT. PATIENT REPORTS SHE CAN'T REMEMBER THE LAST TIME SHE FELL. NO RECENT FALLS. - Objective THIS PATIENT AMBULATES INDEP'LY INTO PT WITH A ROLLATOR. SHE WALKS WITH INCREASED TRUNK FLEX, DECREASED PAWAN STRIDE LENGTH, DECREASED CADANCE AND GREATER DIFFICULTY ADVANCING LLE THAN RIGHT. SHE TENDS TO LET THE ROLLATOR GET TOO FAR IN FRONT OF HER AND SHE HAS DIFFICULTY CONTROLLING TRANSFER STAND TO SIT. SHE WAS RECENTLY. Motor deficit: TRUNK AND PAWAN LE WEAKNESS LLE > RLE DESPITE THE FACT THAT THE PAIN IS IN HER RIGHT LE. RIGHT LE: HIP 4-/5, KNEE EXT 4/5, KNEE FLEX 4-/5, ANKLE DORSIFLEX 4-/5. LLE: HIP 3+/5, KNEE EXT 3-/5, KNEE FLEX 3-/5, ANKLE DORSIFLEX 3-/5. ROM deficit: TIGHT PAWAN HIP FLEXORS, HS'S AND GASTROC SOLEUS COMPLEX'S. Core strength: POOR. Palpation: NO ACUTE TENDERNESS IN TRUNK OR LE'S. Transfers: INDEP TRANSFER SIT TO SUPINE WITH PATIENT ASSISTING HER LLE ONTO THE TABLE WITH HER UE'S. INDEP SUPINE TO SIT TRANSFER DEMONSTRATED TODAY. - Goals Goal 1:: DECREASE C/O RIGHT LLE SX'S Goal Time Frame: 4-6 Weeks Goal 2:: PATIENT WILL BE INDEP AND SAFE WITH GAIT ON LEVEL SURFACES AND UP AND DOWN STEPS WITH LEAST ASSISTIVE DEVICE. Goal Time Frame: 4-6 Weeks Goal 3:: INDEP HEP Goal Time Frame: 4-6 Weeks - Rehabilitation Potential Rehabilitation Potential: Fair - Anticipated Interventions Patient/Client Instruction: Educate patient on: Condition, Plan of Care, Risk Factors, Benefits of Fitness Program For the Purpose of:: To improve self management Therapeutic Exercise to Include: Strength training, Flexibilty training, Gait and locomotor training For the Purpose of:: To decrease pain, To improve muscle performance and motor function, To increase tolerance to activity/condition/position, To improve ability of physical actions for home/community/work/leisure, To improve gait and locomotor functions Thank you for the opportunity to evaluate your patient. For Medicare and Medicare HMO plans, please review the plan of care and approve it. It will need to be FAXED BACK to us at [phone] for Medicare purposes. For Medicare only, by signing this I certify the plan of care. Please let me know if there are questions or concerns regarding this plan of care. Physician Signature: Date:
--- NOTE | 2019-06-03 12:08 | HP.PTDCSUM ---
HP - PT D/C Summary It has been my pleasure to treat BRITNEY PERAZA under orders from DIANE BECK1, for the diagnosis of MULTIPLE SCLEROSIS for a total of 8 visit(s). Discharge Date: Please see the following information for a summary of their discharge status. - Subjective Subjective: PATIENT REPORTS SHE LIKES HER NEW UPRIGHT WALKER. STATES IT FEELS A LOT BETTER THAN HER OTHER ONE. PATIENT REPORTS SHE CAN GET IN AND OUT OF BED BETTER NOW AND DO DISHES BETTER BUT SHE STILL HAS RIGHT HIP PAIN OFF AND ON. - Overall Improvement % Improvement: 50 - Objective Objective/Function: PATIENT IS REPORTING SIGNIFICANT IMRPOVEMENT AND SHE IS WALKING BETTER WITH HER UPRIGHT 4 WHEELED WALKER BUT SHE STILL TENDS TO AVOID BENDING HER LEFT HIP AND KNEE DURING SWING PHASE AND TOES OUT LEFT. SHE DEMO'S INDEP GAIT WITH INCREASED TRUNK FLEXIONN AND DECREASED CADANCE 300 FEET X 2 TODAY WITHOUT LOSS OF BALANCE WHILE USING HER WALKER. SHE IS DEFINATELY STILL WALKER DEPENDENT FOR SAFETY. OVER-ALL OBJECTIVELY THERE ARE NO OTHER SIGNIFICANT CHANGES SINCE INITIAL EVAL. - Goals Goal 1:: DECREASE C/O RIGHT LLE SX'S Goal Progress: Goal Met Goal 2:: PATIENT WILL BE INDEP AND SAFE WITH GAIT ON LEVEL SURFACES AND UP AND DOWN STEPS WITH LEAST ASSISTIVE DEVICE. Goal Progress: Goal Met Goal 3:: INDEP HEP Goal Progress: Goal Met - Plan Plan: D/C. PATIENT AGREEABLE. - D/C Information If there are questions or concerns regarding this patient's physical therapy, please feel free to call me at [phone]. Thank you for the referral of this patient. Sincerely, Valerie Collins, PT, Cert MDT
== END 2019-06-03 19:00 | disposition home or self-care (01) ==
LOC: PT 11:00
PROVIDERS: Family Provider Family Medicine; PCP Family Medicine
DX: G35 Multiple sclerosis (principal)
CPT/HCPCS: 97110; 97116; 97162; 97530

== ENCOUNTER 2020-01-25 21:40 | Emergency (ER) | payer MEDICAID, SELFPAY ==
[2018-10-01 11:04] VITALS: BMI 22.1
[2020-01-25 21:46] VITALS: BP 139/80; PULSE 87; RESP 14; TEMP 36.5; O2SAT 97; BMI 22.6
--- NOTE | 2020-01-25 22:11 | EKG12_ITS ---
Test Reason : DIZZINESS Blood Pressure : / mmHG Vent. Rate : 082 BPM Atrial Rate : 082 BPM P-R Int : 160 ms QRS Dur : 068 ms QT Int : 374 ms P-R-T Axes : 040 -32 043 degrees QTc Int : 436 ms Normal sinus rhythm Left axis deviation Abnormal ECG Confirmed by BECKA BOO, MALLORIE ([id number]), editor trade journal NICANOR REBOLLAR ([id number]) on 01/28/2020 9:32:29 AM Referred By: TARA Confirmed By:MALLORIE JOVEL MD
--- NOTE | 2020-01-25 22:11 | CT_ITS ---
STUDY: CT BRAIN WITHOUT CONTRAST REASON FOR EXAM: Female, 59 years old. DIZZINESS STARTING AT 1800. H/O VERTIGO, MS RADIATION DOSAGE (If Supplied By Facility): CTDIvol = ( 44.99 ) mGy, DLP = ( 812.98 ) mGycm TECHNIQUE: Transaxial CT imaging of the brain was performed without administration of intravenous contrast material. Individualized dose optimization techniques were used for this CT. COMPARISON: 07/03/2018 FINDINGS: Normal soft tissue structures. Normal calvarium. Normal size ventricles and extra-axial spaces for the patient''s age. There are areas of decreased attenuation within the white matter tracts of the supratentorial brain, consistent with microvascular disease changes. Normal age-related changes of the basal ganglia. Normal brainstem. Normal cerebellum. There is no intracranial hemorrhage. There are no findings of an acute ischemic infarction. Normal visualized paranasal sinuses. CT/Brain/Head without Contrast IMPRESSION: No CT evidence of acute infarct or hemorrhage. If there is clinical concern for hyperacute ischemia that is not evident by CT, MRI should be considered if possible. Electronically Signed: Herman Carmona MD at 23:41 EDT Tel , Service support ,
--- NOTE | 2020-01-25 22:12 | ED.VIS.GEN ---
History of Present Illness Chief Complaint: Dizziness Informant: Patient Onset: Today Current Severity: Mild Maximum Severity: Moderate Narrative: Patient presents secondary to dizziness which she describes as spinning sensation consistent with prior bouts of vertigo. She is initially diagnosed with vertigo about a year and a half ago at which time it was thought to be a medication side effect. She states she is been off that medication but continues to have more mild intermittent episodes. Tonight around 6 PM she started feeling dizzy. She denies headache or vision change. She denies chest pain or palpitations. She denies nausea or vomiting. Patient does have a history of MS. She states that her last MRI within the last 6 months showed no significant changes. - Past Medical History (1) Multiple sclerosis Status: Chronic (2) Vertigo Status: Chronic (3) Depression Status: Chronic Past Medical History - Allergies and Home Meds Allergies/Adverse Reactions: Allergies naproxen Allergy (Verified 10/01/18 11:03) Rash Penicillins Allergy (Verified 10/01/18 11:03) Rash Sulfa (Sulfonamide Antibiotics) Allergy (Verified 10/01/18 11:03) Rash tizanidine Adverse Reaction (Verified 10/01/18 11:03) Unknown Primary Care Physician: Derrick Hughes MD [Primary Care Provider] - Surgical History: appendectomy, hysterectomy Lives: Alone Smoking Status: Never smoker Review of Systems General: Denies: Chills, Fever Eyes: Denies: Visual changes - bilaterally ENT: Denies: Bilateral ear pain Cardiovascular: Denies: Chest pain Respiratory: Denies: Dyspnea, Cough Gastrointestinal: Denies: Abdominal pain, Nausea, Vomiting Genitourinary: Denies: Dysuria Musculoskeletal: Denies: Swelling, Extremity Pain Skin: Denies: Rash Neurological: Denies: Headache Hematologic: Denies: Easy bruising, Easy bleeding Allergy: Denies: Uticaria Physical Exam Vital Signs/Narrative: Vital Signs Temp Pulse Resp BP Pulse Ox 01/25/20 21:46 97.7 F L 87 14 139/80 H 97 Inital Vital Signs reviewed: Yes General: Well nourished, Well developed Head: Normocephalic ENT: Moist mucous membranes Cardiovascular: Regular rate, Regular rhythm Respiratory: No distress, CTA bilaterally Abdomen: Soft, Nontender Extremities: Nontender Skin: Normal color, No rash Neurological: Alert, Oriented x3, - - No focal neurologic deficits. Psychological: Normal affect Diagnostic/Tx/Re-eval Impressions Brain CT 01/25/20 22:11 IMPRESSION: No CT evidence of acute infarct or hemorrhage. If there is clinical concern for hyperacute ischemia that is not evident by CT, MRI should be considered if possible. Electronically Signed: Herman Carmona MD at 23:41 EDT Tel , Service support , 01/25/20 22:11 Brain/Head without Contrast [CT] Stat Laboratory Results 01/25/20 01/25/20 01/25/20 22:20 22:20 22:40 WBC 10.5 RBC 4.63 Hgb 13.3 Hct 43.0 MCV 92.9 MCH 28.7 MCHC 30.9 L RDW Std Deviation 45.4 H RDW Coeff of Hung 13.3 Plt Count 380 MPV 8.6 Immature Gran % (Auto) 0.400 Neut % (Auto) 73.7 H Lymph % (Auto) 14.0 L [place] % (Auto) 9.9 Eos % (Auto) 1.1 Baso % (Auto) 0.9 Absolute Neuts (auto) 7.7 Absolute Lymphs (auto) 1.46 Nucleated RBC % 0 Sodium 143 Potassium 3.5 Chloride 109 H Carbon Dioxide 29.0 Anion Gap 5 BUN 21 H Creatinine 0.62 Estim Creat Clear Calc 82.28 Est GFR (MDRD) Af Amer 126 Est GFR (MDRD) Non-Af 105 BUN/Creatinine Ratio 34.1 H Glucose 108 H Calcium 9.0 Urine Color Straw Urine Clarity Clear Urine pH 7.0 Ur Specific [place] 1.010 Urine Protein Negative Urine Glucose (UA) Normal Urine Ketones Negative Urine Occult Blood Negative Urine Nitrite Negative Urine Bilirubin Negative Urine Urobilinogen Normal Ur Leukocyte Esterase 100 H Urine RBC 0 SEEN Urine WBC 0-5 SEEN Ur Squamous Epith Cells 0 SEEN Urine Bacteria 2+ Urine Mucus 0 SEEN - EKG Initial EKG Interpretation: Sinus Rhythm - Sinus 82 with no acute ischemia. - Medical Decision Making Patient was given p.o. Antivert here along with IV fluids. On repeat evaluation she feels improved. She is been up to the bedside commode multiple times. Patient does have 2+ bacteria in her urine but really no other significant changes to indicate infection. Urine culture will be sent but she will not be treated with antibiotics at this time. Patient believes that her Dalfampridine she takes her MS may be contributing to her dizzy spells. Common side effects noted is dizziness. She will speak with her neurologist on Monday about this. In the meantime she will get a prescription for Antivert. ED Disposition - Plan for ED Patient: Disposition: Home or Assisted Living Diagnosis: Dizziness Instructions: ED Dizziness UKO Prescriptions: Meclizine HCl [Antivert] 25 mg PO 4X/DAY PRN PRN #20 tab PRN Reason: Dizziness [facility] Referrals: Derrick Hughes MD [Primary Care Provider] - 3-5 Days if not improving Additional Instructions: Follow-up with your neurologist about your Dalfampridine as discussed.
[2020-01-25] MEDS: Meclizine HCl 25 MG Tablet PO (22:25)
[2020-01-25 22:28] LABS: Absolute Lymphocyte Count 1.46 X10^3/uL (0.83-4.51); Absolute Neutrophil Count 7.7 X10^3/uL (2.0-7.7); Basophil# 0.09 X10^3/uL; Basophil% 0.9 % (0-1); Eosinophil# 0.12 X10^3/uL; Eosinophils% 1.1 % (0-5); Hemoglobin 13.3 g/dL (12.0-15.0); Lymphocyte # 1.46 X10^3/ul (4.0); Mean Corp Hgb Conc 30.9 g/dL (32-36); Mean Corpuscular Hgb 28.7 pg (27.0-32.0); Mean Corpuscular Volume 92.9 fL (81-99); Mean Platelet Vol. 8.6 fl (6.2-12.0); Monocyte# 1.04 X10^3/uL; Monocyte% 9.9 % (0-10); NRBC Flagged by Analyzer 0 % (0-5); Neutrophil # 7.71 X10^3/uL (2.7-7.7); Neutrophil % 73.7 % (47-70); Platelet Count 380 K/mm3 (150-450); RBC Distribution Width CV 13.3 % (11.6-14.6); RBC Distribution Width SD 45.4 fl (35.1-43.9); Red Blood Count 4.63 M/mm3 (4.2-5.4); White Blood Count 10.5 K/mm3 (4.4-11.0)
[2020-01-25 22:40] LABS: Anion Gap 5 (5-15); BUN 21 mg/dL (7-18); BUN/Creat Ratio 34.1 RATIO (10-20); Chloride 109 mmol/L (98-107); Creatinine, Serum 0.62 mg/dL (0.55-1.02); EST Glomerular Filtration Rate 105 mL/min (>60); Est Glom Filt Rate - Afr Amer 126 mL/min (>60); Estimated Creatinine Clearance 82.28 ml/min; Glucose 108 mg/dL (74-106); Potassium 3.5 mmol/L (3.5-5.1); Sodium Level 143 mmol/L (136-145)
[2020-01-25 22:45] LABS: Mucous, Urine 0 SEEN /hpf (<or=2+); Red Blood Cells-Urine 0 SEEN /hpf (0-5); Squamous Epithelial Cells - UA 0 SEEN /hpf (5-10)
[2020-01-25 22:50] LABS: Color, Urine Straw (Yellow); Glucose, Dipstick Normal (Normal); Ketone-Dipstick Negative (Negative); Leukocyte Esterase-Dipstick 100 /ul (Negative); Nitrite-Dipstick Negative (Negative); Occult Blood-Urine Negative /ul (Negative); Protein-Dipstick Negative (Negative); Urine Bilirubin Dipstick Negative (Negative); Urine Clarity Clear (Clear); Urine Urobilinogen Normal (Normal)
[2020-01-25 23:04] LABS: Bacteria 2+ /hpf (None Seen); White Blood Cells 0-5 SEEN /hpf (0-5)
[2020-01-25 23:45] VITALS: BP 135/62; PULSE 92; RESP 20; O2SAT 93
== END 2020-01-26 00:45 | disposition home or self-care (01) ==
PROVIDERS: Emergency Provider Emergency Medicine; PCP Family Medicine
DX: R42 Dizziness and giddiness (principal); G35 Multiple sclerosis
CPT/HCPCS: 70450; 80048; 81001; 85025; 87086; 87088; 87186; 93005; 96360; 99285; J7040; A4216

== ENCOUNTER 2021-01-24 00:17 | Emergency (ER) | payer MEDICAID, SELFPAY ==
[2021-01-24 00:19] VITALS: BP 128/70; PULSE 104; RESP 15; TEMP 36.6; O2SAT 97; BMI 26.9
--- NOTE | 2021-01-24 00:23 | EDS_ITS ---
HPI HPI - Female History of Present Illness Chief Complaint: Complaint Informant: patient Associated Symptoms Associated Symptoms: Positive for Dysuria and Frequency; Negative for Hematuria Narrative Narrative: Dysuria and frequency for couple days, feels like a urinary tract infection, she has had prior symptoms with those in the past, presents to the ED for this since it is the weekend. She is having some mild suprapubic discomfort nonlateralizing since the same period of time. She denies any low back discomfort, fevers, chills, nausea, vomiting. She is on no immunocompromising medications. She has multiple sclerosis, she does not need to self cath. Prior similar symptoms: Yes (With bladder infections) Recent Illness/Hospitalization: No PFSH PFSH Home Medications acetaminophen 1,000 mg PO Q4H PRN PRN 07/03/18 [History Last Taken 10/01/18 08:00] atenolol 25 mg PO DAILY 07/03/18 [History Last Taken 10/01/18 08:00] biotin 1 mg PO TID 07/03/18 [History Last Taken 07/03/18] cholecalciferol (vitamin D3) 5,000 units PO QODAY 07/03/18 [History Last Taken 07/03/18] dalfampridine 10 mg PO BID 07/03/18 [History Last Taken 10/01/18 08:00] meclizine 25 mg PO 4X/DAY PRN PRN #20 tab 01/26/20 [Rx Last Taken Unknown] nitrofurantoin monohyd/m-cryst 100 mg PO Q12 #14 capsule 01/24/21 [Rx Last Taken Unknown] Allergy/AdvReac Type Severity Reaction Status Date / Time naproxen Allergy Rash Verified 01/24/21 00:24 Penicillins Allergy Rash Verified 01/24/21 00:24 Sulfa (Sulfonamide Allergy Rash Verified 01/24/21 00:24 Antibiotics) tizanidine AdvReac Unknown Verified 01/24/21 00:24 Social History Smoking Status: Never smoker ROS ROS ED Constitutional Constitutional ED: Denies chills or fever(s) Eyes Eyes: Denies change in vision or diplopia ENT ENT ED: Denies rhinorrhea or sore throat Cardiovascular Cardiovascular: Denies chest pain or palpitations Respiratory/Chest Respiratory/Chest: Denies cough or dyspnea Gastrointestinal Gastrointestinal: Reports abdominal pain; Denies diarrhea, nausea or vomiting Genitourinary Genitourinary ED: Reports dysuria and urinary frequency; Denies change in urinary stream, decreased urination or hematuria Musculoskeletal Musculoskeletal: Denies back pain or neck pain Integumentary Denies abscess or rash Neurologic Neurologic: Denies headache(s) or weakness Psychiatric Psychiatric: Denies anxiety or suicidal thoughts EXAM Physical Exam Const Vital Signs: 01/24/21 00:19 Temperature 97.9 F Temperature Source Oral Pulse Rate 104 H Respiratory Rate 15 Blood Pressure 128/70 H Blood Pressure Mean 89 Pulse Ox 97 Oxygen Delivery Method Room Air Positive well nourished and well developed General Appearance ED: well developed and NAD HEENT Reports moist mucous membranes normocephalic and atraumatic Eyes PERRL and EOMs intact bilaterally Neck full ROM and supple Resp normal respiratory effort and clear to auscultation bilaterally Cardio regular rate, regular rhythm and no murmurs GI non-tender and non-distended Auscultation: normoactive bowel sounds Palpation: soft Back/Spine no CVA tenderness General Back: other FROM Extremity normal to inspection General Extremety ED: Negative for edema, pulses abnormal or tenderness General Extremity: Negative for edema or pulses abnormal Neuro oriented x3 and CN's II-XII intact bilaterally Sensorium / Orientation: awake and alert Skin no rashes or lesions noted and no wounds MDM MDM MDM Narrative Medical decision making narrative: Urine is consistent with infection. He was sent for culture, she was started on Macrobid, and will be discharged on Macrobid. She was also given a dose of Pyridium for the symptoms. She is clinically hemodynamically stable without any signs or symptoms of sepsis or pyelonephritis, will put her on a 7-day course. Lab Data Attestation: I reviewed the patient's lab results. Labs: Laboratory Results - last 24 hr 01/24/21 00:35 Urine Color Yellow Urine Clarity Cloudy Urine pH 5.0 Ur Specific [place] 1.025 Urine Protein 100 H Urine Glucose (UA) Normal Urine Ketones 5 H Urine Occult Blood 150 H Urine Nitrite Positive H Urine Bilirubin Negative Urine Urobilinogen Normal Ur Leukocyte Esterase 500 H Urine RBC 10-25 SEEN Urine WBC >100 SEEN Ur Squamous Epith Cells 0-5 SEEN Urine Bacteria 2+ Urine Mucus 0 SEEN Discharge Plan Triage Chief Complaint: Complaint ED Provider: Alexander Quintana Dx/Rx/DC Orders Clinical Impression: Acute cystitis Instructions: ED CYSTITIS Female Adult Prescriptions: New nitrofurantoin monohyd/m-cryst [nitrofurantoin monohyd/m-cryst] 100 MG capsule 100 mg PO Q12 Qty: 14 RF: 0 No Action atenolol 25 tablet 25 mg PO DAILY RF: 0 cholecalciferol (vitamin D3) 5,000 capsule 5,000 units PO QODAY RF: 0 dalfampridine 10 MG tablet extended release 12 hr 10 mg PO BID RF: 0 biotin 1 MG capsule 1 mg PO TID RF: 0 acetaminophen 500 MG tablet 1,000 mg PO Q4H PRN PRN (Reason: Pain) RF: 0 meclizine 25 MG tablet 25 mg PO 4X/DAY PRN PRN (Reason: Dizziness) Qty: 20 RF: 0 Primary Care Provider: Derrick Hughes Referrals: Derrick Hughes MD [Primary Care Provider] - 3-5 Days if not improving Disposition Disposition: Home, Self Care
[2021-01-24 00:43] LABS: Mucous, Urine 0 SEEN /hpf (<or=2+)
[2021-01-24 00:48] LABS: Color, Urine Yellow (Yellow); Glucose, Dipstick Normal (Normal); Ketone-Dipstick 5 mg/dl (Negative); Leukocyte Esterase-Dipstick 500 /ul (Negative); Nitrite-Dipstick Positive (Negative); Occult Blood-Urine 150 /ul (Negative); Protein-Dipstick 100 mg/dl (Negative); Specific Gravity, Urine 1.025 (1.002-1.030); Urine Bilirubin Dipstick Negative (Negative); Urine Clarity Cloudy (Clear); Urine Urobilinogen Normal (Normal)
[2021-01-24 00:57] LABS: Bacteria 2+ /hpf (None Seen); Red Blood Cells-Urine 10-25 SEEN /hpf (0-5); Squamous Epithelial Cells - UA 0-5 SEEN /hpf (5-10); White Blood Cells >100 SEEN /hpf (0-5)
[2021-01-24] MEDS: Phenazopyridine 95 MG Tablet 190 MG PO (01:23)
[2021-01-24] MEDS: Nitrofurantoin Macrocrystals 100 MG Capsule PO (01:23)
[2021-01-24 02:16] VITALS: BP 128/70; PULSE 101; RESP 15; TEMP 36.6; O2SAT 97
== END 2021-01-24 02:43 | disposition home or self-care (01) ==
PROVIDERS: Emergency Provider Emergency Medicine; PCP Family Medicine
DX: N30.00 Acute cystitis without hematuria (principal); G35 Multiple sclerosis; Z79.899 Other long term (current) drug therapy
CPT/HCPCS: 81001; 87077; 87086; 87088; 87186; 99285; P9612

== ENCOUNTER 2021-09-16 13:00 | Inpatient (IN) | payer MEDICAID, SELFPAY ==
[2021-09-16] VITALS (9 sets, daily range): BP systolic 123–140; BP diastolic 56–78; PULSE 106–129; RESP 16–24; TEMP 37.1–38.6; O2SAT 94–96; BMI 26.8; BMI 25.7
--- NOTE | 2021-09-16 13:08 | EKG12_ITS ---
Test Reason : MS Blood Pressure : / mmHG Vent. Rate : 118 BPM Atrial Rate : 118 BPM P-R Int : 156 ms QRS Dur : 060 ms QT Int : 310 ms P-R-T Axes : 015 -36 053 degrees QTc Int : 434 ms Sinus tachycardia Left axis deviation Abnormal ECG Confirmed by FÉLIX BOO, RUIZ ([id number]), photo editor NICANOR REBOLLAR ([id number]) on 09/20/2021 1:50:24 PM Referred By: ES/UG Confirmed By:ENID HEARD MD
--- NOTE | 2021-09-16 13:13 | EX.ED.DYSGE1 ---
HPI <FRANCIS Garcia - Last Filed: 09/16/21 14:14> History of Present Illness Chief Complaint: Weakness Narrative Narrative: 61-year-old female with history of multiple sclerosis, tachycardia who lives at home presents to the emergency department for 3 to 4 days of generalized weakness, fever today. Patient was getting seen by her home health nurse, due to the patient having slight confusion, fever, she called EMS for the patient be evaluated. Patient had to the local EMS 3 times last evening for lift assist because she was so weak she could not get out of her chair. Patient denies any cough, patient denies any headache, chest pain, shortness of breath. Patient also states to have had 3 falls recently however no injury from them. Patient is currently on blood thinners [facility] <FRANCIS Garcia - Last Filed: 09/16/21 14:14> PFSH Medical History Hypertension Multiple sclerosis Home Medications acetaminophen 1,000 mg PO Q4H PRN PRN 07/03/18 [History Last Taken 09/16/21] atenolol 25 mg PO DAILY 07/03/18 [History Last Taken 09/16/21] Allergy/AdvReac Type Severity Reaction Status Date / Time naproxen Allergy Rash Verified 01/24/21 00:24 Penicillins Allergy Rash Verified 01/24/21 00:24 Sulfa (Sulfonamide Allergy Rash Verified 01/24/21 00:24 Antibiotics) tizanidine AdvReac Unknown Verified 01/24/21 00:24 Family History (Updated 09/16/21 @ 14:[address] Faheem Lamb MD) Other Hypertension Surgical History Hx of appendectomy Social History Smoking Status: Never smoker ROS <FRANCIS Garcia - Last Filed: 09/16/21 14:14> ROS ED ROS Narrative Constitutional: Negative for weight loss. Positive for fever and chills. Positive for weakness Eyes: Negative for vision loss, vision change, double vision ENT: Negative for any sore throat, ear pain, congestion Cardiovascular: Negative for any chest pain, tightness, palpitations, racing heartbeat Respiratory: Negative for any cough, sputum production, hemoptysis, shortness of breath, shortness of breath on exertion, orthopnea Gastrointestinal: Negative for any abdominal pain, nausea, vomiting, diarrhea, constipation, blood in stool, blood in vomit : Negative for any urinary frequency, incontinence, dysuria, retention, blood in urine Muscle skeletal: Negative for any muscle joint pain, stiffness, myalgias, arthralgias, neck pain, back pain Neurological: Negative for any headache, dizziness, syncope, numbness or tingling Skin: Negative for any rashes, lumps, itching, abrasions, lacerations Psychiatric: Negative for any depression, anxiety, stress, suicidal ideation, homicidal ideation Hematologic: Negative for any easy bruising, excessive bruising, easy bleeding Allergies: Negative for any eczema, hives, rash EXAM <FRANCIS Garcia - Last Filed: 09/16/21 14:14> Physical Exam Narrative Exam Narrative: Vital signs reviewed. Patient is tachycardic, lethargic, febrile HEET: Head normocephalic atraumatic, TMs clear bilaterally. Posterior pharynx is clear, dry mucous membranes. Nares clear bilaterally. Neck: Supple with no lymphadenopathy or tenderness. No signs of meningismus, negative jolt sign. Cardiac: Tachycardic rate and rhythm no murmurs gallops or rubs, equal peripheral pulses bilaterally. Respiratory: Lungs clear to auscultation bilaterally. No chest tenderness. Abdomen: Soft, nontender, nondistended. No abdominal bruit or pulsatile masses. No hepatosplenomegaly Extremities: No peripheral edema, no signs of gross trauma or deformity. Active full range of motion of all extremities. Neuro: Cranial nerves II through XII intact, no focal neurological deficits. Skin: Clean dry and intact with no rash, purpura, petechiae, vesicles or pustules. Backslash flank: No CVA tenderness, no midline spinal tenderness, no deformity. Psych: Normal mood and affect. No SI, HI or acute psychosis. Const Vital Signs: 09/16/21 13:00 09/16/21 13:02 09/16/21 13:08 Temperature 100.1 F H 99.3 F H Temperature Source Oral Oral Pulse Rate 122 H 119 H Respiratory Rate 20 H 24 H Respiratory Effort Normal Non-Labored Respiratory Pattern Normal Blood Pressure 140/78 H 140/78 H Blood Pressure Mean 98 98 Pulse Ox 94 95 Oxygen Delivery Method Room Air Room Air Positive well nourished and well developed General Appearance ED: well developed <Dr. Erick Jin MD - Last Filed: 09/16/21 17:15> Physical Exam Const Vital Signs: 09/16/21 13:00 09/16/21 13:02 09/16/21 13:08 Temperature 100.1 F H 99.3 F H Temperature Source Oral Oral Pulse Rate 122 H 119 H Respiratory Rate 20 H 24 H Respiratory Effort Normal Non-Labored Respiratory Pattern Normal Blood Pressure 140/78 H 140/78 H Blood Pressure Mean 98 98 Pulse Ox 94 95 Oxygen Delivery Method Room Air Room Air MDM <FRANCIS Garcia - Last Filed: 09/16/21 14:14> [facility] MDM Narrative Medical decision making narrative: Patient appears lethargic, patient is febrile, tachycardic here, patient did receive a full septic work-up with 2 sets of blood cultures. Patient CBC was unremarkable, patient's chemistries showed an elevated BUN/creatinine ratio sugar was 141. Patient did receive urinalysis, this was positive for infection with 2+ bacteria, positive nitrates. Patient is patient does make sepsis criteria, patient is lethargic, fever, urinary tract infection. Patient will be placed on Levaquin secondary to her hives like rash to ceftriaxone. Patient is in no respiratory distress, patient denies any cough. Patient was given Tylenol, IV fluids. Patient will be admitted to the hospital. Patient did have an elevated lactic acid, patient meets criteria for severe sepsis, patient will be given IV Levaquin, blood cultures done prior to administration. I did speak with the hospitalist, I did recommend ICU however hospitalist prefers MedSurg. Patient stable for admission. Lab Data Labs: Laboratory Results - last 24 hr 09/16/21 09/16/21 09/16/21 13:03 13:05 13:05 WBC 8.8 RBC 4.98 Hgb 14.2 Hct 45.2 MCV 90.8 MCH 28.5 MCHC 31.4 L RDW Std Deviation 44.8 H RDW Coeff of Hung 13.4 Plt Count 373 MPV 8.9 Immature Gran % (Auto) 0.700 Neut % (Auto) 75.2 H Lymph % (Auto) 7.9 L [place] % (Auto) 15.6 H Eos % (Auto) 0.1 Baso % (Auto) 0.5 Absolute Neuts (auto) 6.7 Absolute Lymphs (auto) 0.70 L Nucleated RBC % 0 PT 13.1 INR 1.0 APTT 30.0 Sodium 141 Potassium 3.7 Chloride 109 H Carbon Dioxide 27.0 Anion Gap 5 BUN 29 H Creatinine 0.75 Estim Creat Clear Calc 66.30 Est GFR (MDRD) Af Amer 101 Est GFR (MDRD) Non-Af 83 BUN/Creatinine Ratio 38.8 H Glucose 141 H Lactic Acid Calcium 8.8 Total Bilirubin 0.20 AST 16 ALT 28 Alkaline Phosphatase 88 Total Protein 6.9 Albumin 3.6 Globulin 3.3 Albumin/Globulin Ratio 1.1 Urine Color Urine Clarity Urine pH Ur Specific [place] Urine Protein Urine Glucose (UA) Urine Ketones Urine Occult Blood Urine Nitrite Urine Bilirubin Urine Urobilinogen Ur Leukocyte Esterase Urine RBC Urine WBC Ur Squamous Epith Cells Urine Bacteria Urine Mucus 09/16/21 09/16/21 13:15 13:30 WBC RBC Hgb Hct MCV MCH MCHC RDW Std Deviation RDW Coeff of Hung Plt Count MPV Immature Gran % (Auto) Neut % (Auto) Lymph % (Auto) [place] % (Auto) Eos % (Auto) Baso % (Auto) Absolute Neuts (auto) Absolute Lymphs (auto) Nucleated RBC % PT INR APTT Sodium Potassium Chloride Carbon Dioxide Anion Gap BUN Creatinine Estim Creat Clear Calc Est GFR (MDRD) Af Amer Est GFR (MDRD) Non-Af BUN/Creatinine Ratio Glucose Lactic Acid 2.2 H* Calcium Total Bilirubin AST ALT Alkaline Phosphatase Total Protein Albumin Globulin Albumin/Globulin Ratio Urine Color Yellow Urine Clarity Cloudy Urine pH 5.0 Ur Specific [place] 1.025 Urine Protein 15 H Urine Glucose (UA) Normal Urine Ketones 5 H Urine Occult Blood 10 H Urine Nitrite Positive H Urine Bilirubin Negative Urine Urobilinogen Normal Ur Leukocyte Esterase Negative Urine RBC 0 SEEN Urine WBC 0 SEEN Ur Squamous Epith Cells 0 SEEN Urine Bacteria 2+ Urine Mucus 0 SEEN <Dr. Erick Jin MD - Last Filed: 09/16/21 17:15> [facility] Narrative Medical decision making narrative: I have personally performed a face to face assessment of the patient and have reviewed the JORGE Note. I performed a substantive portion of the visit including all aspects of the following. My grigsby findings include: History is is remarkable for decreased activity, sleepiness, change in behavior. Patient states she has not had a recent urinary tract infection. She is never had pneumonia. She denies dysuria, frequency, urgency or hematuria. She denies headache. She denies visual, ocular auditory symptoms. She denies cough or shortness of breath. She denies vomiting or diarrhea. She denies rash. She is been weak and has been stumbling and falling. She navigates with a walker. Exam is remarkable for somnolence. Patient is not alert. She answers questions. Her questions are answered appropriately but slowly. She appears pale. Presently she is drooling. She is having trouble keeping her head up and her eyes open. Head is atraumatic normocephalic. Pupils equal round reactive. Extract muscle intact. Sclerae anicteric. Conjunctive is slightly pink. TMs normal. Uvula midline. No erythema or exudate of posterior pharynx. Trachea midline. That was for extra stridor. Heart is rapid without murmur, gallop and rub. Lungs revealed slightly diminished breath sounds bilaterally. There is no rales, wheezing or rhonchi noted. Abdomen is soft and essentially nontender. She has no CVA tenderness noted. There is edema of the lower extremity which is felt to be dependent edema since she is not very mobile. Medical Decision Making with history of recurrent urinary tract infections tachycardia, tachypnea and elevated temperature concern patient has sepsis due to urologic source. X-ray was not initially ordered. If UA is negative will obtain chest x-ray. Patient reports hives to penicillin. Will use sepsis order set for treatment. I believe option is levofloxacin which will cover both respiratory and urologic pathogens. Other additions or changes: Case was discussed with hospitalist. Per hospital policy with severe sepsis patient should be admitted to ICU. He requested that patient not be admitted to the ICU. Lab Data Labs: Laboratory Results - last 24 hr 09/16/21 09/16/21 09/16/21 13:03 13:05 13:05 WBC 8.8 RBC 4.98 Hgb 14.2 Hct 45.2 MCV 90.8 MCH 28.5 MCHC 31.4 L RDW Std Deviation 44.8 H RDW Coeff of Hung 13.4 Plt Count 373 MPV 8.9 Immature Gran % (Auto) 0.700 Neut % (Auto) 75.2 H Lymph % (Auto) 7.9 L [place] % (Auto) 15.6 H Eos % (Auto) 0.1 Baso % (Auto) 0.5 Absolute Neuts (auto) 6.7 Absolute Lymphs (auto) 0.70 L Nucleated RBC % 0 PT 13.1 INR 1.0 APTT 30.0 Sodium 141 Potassium 3.7 Chloride 109 H Carbon Dioxide 27.0 Anion Gap 5 BUN 29 H Creatinine 0.75 Estim Creat Clear Calc 66.30 Est GFR (MDRD) Af Amer 101 Est GFR (MDRD) Non-Af 83 BUN/Creatinine Ratio 38.8 H Glucose 141 H Lactic Acid Calcium 8.8 Total Bilirubin 0.20 AST 16 ALT 28 Alkaline Phosphatase 88 Total Protein 6.9 Albumin 3.6 Globulin 3.3 Albumin/Globulin Ratio 1.1 Urine Color Urine Clarity Urine pH Ur Specific [place] Urine Protein Urine Glucose (UA) Urine Ketones Urine Occult Blood Urine Nitrite Urine Bilirubin Urine Urobilinogen Ur Leukocyte Esterase Urine RBC Urine WBC Ur Squamous Epith Cells Urine Bacteria Urine Mucus 09/16/21 09/16/21 13:15 13:30 WBC RBC Hgb Hct MCV MCH MCHC RDW Std Deviation RDW Coeff of Hung Plt Count MPV Immature Gran % (Auto) Neut % (Auto) Lymph % (Auto) [place] % (Auto) Eos % (Auto) Baso % (Auto) Absolute Neuts (auto) Absolute Lymphs (auto) Nucleated RBC % PT INR APTT Sodium Potassium Chloride Carbon Dioxide Anion Gap BUN Creatinine Estim Creat Clear Calc Est GFR (MDRD) Af Amer Est GFR (MDRD) Non-Af BUN/Creatinine Ratio Glucose Lactic Acid 2.2 H* Calcium Total Bilirubin AST ALT Alkaline Phosphatase Total Protein Albumin Globulin Albumin/Globulin Ratio Urine Color Yellow Urine Clarity Cloudy Urine pH 5.0 Ur Specific [place] 1.025 Urine Protein 15 H Urine Glucose (UA) Normal Urine Ketones 5 H Urine Occult Blood 10 H Urine Nitrite Positive H Urine Bilirubin Negative Urine Urobilinogen Normal Ur Leukocyte Esterase Negative Urine RBC 0 SEEN Urine WBC 0 SEEN Ur Squamous Epith Cells 0 SEEN Urine Bacteria 2+ Urine Mucus 0 SEEN <Dr. Erick Jin MD - Last Filed: 09/16/21 17:15> Critical Care Time Critical Care Time: Yes Critical care time (excluding procedures): 30-74 minutes (31), Including time spent: (History, physical, review of prior records, documentation, interpretation of results and initiation of therapy), Discussing w/Patient &/or Family/[employer], Discussing w/Consultants and Arranging Admission or Transfer Discharge Plan Dx/Rx/DC Orders Clinical Impression: Complicated urinary tract infection, Infectious encephalopathy, Severe sepsis Disposition Disposition: Acute Care Hospital [facility] Discharge Date/Time: 09/16/21 14:44
[2021-09-16 13:28] LABS: Absolute Neutrophil Count 6.7 X10^3/uL (2.0-7.7); Basophil# 0.04 X10^3/uL; Basophil% 0.5 % (0-1); Eosinophil# 0.01 X10^3/uL; Eosinophils% 0.1 % (0-5); Hematocrit 45.2 % (37-47); Hemoglobin 14.2 g/dL (12.0-15.0); Lymphocyte % 7.9 % (19-41); Mean Corp Hgb Conc 31.4 g/dL (32-36); Mean Corpuscular Hgb 28.5 pg (27.0-32.0); Mean Corpuscular Volume 90.8 fL (81-99); Mean Platelet Vol. 8.9 fl (6.2-12.0); Monocyte# 1.38 X10^3/uL; Monocyte% 15.6 % (0-10); NRBC Flagged by Analyzer 0 % (0-5); Neutrophil # 6.65 X10^3/uL (2.7-7.7); Neutrophil % 75.2 % (47-70); Platelet Count 373 K/mm3 (150-450); RBC Distribution Width CV 13.4 % (11.6-14.6); RBC Distribution Width SD 44.8 fl (35.1-43.9); Red Blood Count 4.98 M/mm3 (4.2-5.4); White Blood Count 8.8 K/mm3 (4.4-11.0)
[2021-09-16 13:37] LABS: Prothrombin Time (Protime)PT. 13.1 SECONDS (11.7-14.9)
[2021-09-16] MEDS: levoFLOXacin IV 750 MG/150 ML BAG 100 MG IV (13:43)
[2021-09-16] MEDS: Acetaminophen 500 MG Tablet 1000 MG PO (13:43)
[2021-09-16 13:44] LABS: ALB/GLOB Ratio 1.1 RATIO (0.9-2.4); AST(SGOT) 16 U/L (15-37); Alanine Aminotransfer ALT/SGPT 28 U/L (13-56); Albumin, Serum 3.6 g/dL (3.2-5.0); Alkaline Phosphatase 88 U/L (45-117); Anion Gap 5 (5-15); BUN 29 mg/dL (7-18); BUN/Creat Ratio 38.8 RATIO (10-20); Calcium,Total 8.8 mg/dL (8.5-10.1); Chloride 109 mmol/L (98-107); Creatinine, Serum 0.75 mg/dL (0.55-1.02); EST Glomerular Filtration Rate 83 mL/min (>60); Est Glom Filt Rate - Afr Amer 101 mL/min (>60); Globulin 3.3 g/dL (2.2-4.2); Glucose 141 mg/dL (74-106); Potassium 3.7 mmol/L (3.5-5.1); Protein, Total 6.9 g/dL (6.4-8.2); Sodium Level 141 mmol/L (136-145)
[2021-09-16 13:44] LABS: Mucous, Urine 0 SEEN /hpf (<or=2+); Red Blood Cells-Urine 0 SEEN /hpf (0-5); Squamous Epithelial Cells - UA 0 SEEN /hpf (5-10); White Blood Cells 0 SEEN /hpf (0-5)
[2021-09-16 13:47] LABS: Color, Urine Yellow (Yellow); Glucose, Dipstick Normal (Normal); Ketone-Dipstick 5 mg/dl (Negative); Leukocyte Esterase-Dipstick Negative /ul (Negative); Nitrite-Dipstick Positive (Negative); Occult Blood-Urine 10 /ul (Negative); Protein-Dipstick 15 mg/dl (Negative); Specific Gravity, Urine 1.025 (1.002-1.030); Urine Bilirubin Dipstick Negative (Negative); Urine Clarity Cloudy (Clear); Urine Urobilinogen Normal (Normal)
[2021-09-16 13:57] LABS: Bacteria 2+ /hpf (None Seen)
[2021-09-16 14:04] LABS: Lactic Acid 2.2 mmol/L (0.4-1.9)
--- NOTE | 2021-09-16 14:14 | PCM.HP.STD ---
HPI - General General Date of Admission: 09/16/21 HPI Narrative BRITNEY PERAZA, is a 61 F who presents to the hospital with generalized weakness and fever. This all began about 3 to 4 days ago. She does have a home health aide who comes to evaluate her and she felt that the patient had some slight confusion today as well as a fever and she called EMS for transfer to the ER. The patient had called EMS apparently last night 3 times on 3 separate occasions for a lift assist because of how weak she was. She does have a history of multiple sclerosis and in the ER it was noted that she has a potential UTI with 2+ urine bacteria, no leukocyte esterase, no WBCs, but positive nitrites. She is not hypoxic and denies any cough or shortness of breath. She has had 2 previous UTIs both with pansensitive E. coli's. She did receive a dose of Levaquin in the ER secondary to a history of hives with penicillin. [facility] Medical History (Updated 09/16/21 @ 14:[address] Erick Jin MD) Hypertension Multiple sclerosis Home Medications acetaminophen 1,000 mg PO Q4H PRN PRN 07/03/18 [History Last Taken 09/16/21] atenolol 25 mg PO DAILY 07/03/18 [History Last Taken 09/16/21] Allergy/AdvReac Type Severity Reaction Status Date / Time naproxen Allergy Rash Verified 01/24/21 00:24 Penicillins Allergy Rash Verified 01/24/21 00:24 Sulfa (Sulfonamide Allergy Rash Verified 01/24/21 00:24 Antibiotics) tizanidine AdvReac Unknown Verified 01/24/21 00:24 Family History (Updated 09/16/21 @ 14:[address] Faheem Lamb MD) Other Hypertension Surgical History (Updated 09/16/21 @ 13:15 by Pat Sheldon) Hx of appendectomy Social History Smoking Status: Never smoker ROS Constitutional Constitutional: Reports fever(s) and weakness; Denies chills, fatigue or malaise Eyes Eyes: Denies blurry vision ENT HEENT: Denies headache(s) or nasal discharge Cardiovascular Cardiovascular: Denies chest pain, dyspnea on exertion or syncope Respiratory/Chest Respiratory/Chest: Denies cough, shortness of breath at rest or shortness of breath with exertion Gastrointestinal Gastrointestinal: Denies constipation, diarrhea, nausea or vomiting Genitourinary Genitourinary: Denies dysuria Neurologic Neurologic: Denies focal weakness, numbness or tremor(s) Psychiatric Psychiatric: Denies anxiety or depression Vital Signs Vital Signs Vital Signs: 09/16/21 13:00 09/16/21 13:02 09/16/21 13:08 Temperature 100.1 F H 99.3 F H Temperature Source Oral Oral Pulse Rate 122 H 119 H Respiratory Rate 20 H 24 H Respiratory Effort Normal Non-Labored Respiratory Pattern Normal Blood Pressure 140/78 H 140/78 H Blood Pressure Mean 98 98 Pulse Ox 94 95 Oxygen Delivery Method Room Air Room Air Weight Weight: 156 lb 1.396 oz Body Mass Index (BMI) 26.8 Physical Exam Const alert and oriented x3 General Appearance: cooperative HEENT normocephalic Mouth: dry mucous membranes Eyes PERRL, EOMs intact bilaterally and conjunctivae normal Neck supple and no JVD Resp normal respiratory effort, no retractions, no use of accessory muscles and clear to auscultation bilaterally Auscultation: Negative for crackles, rales, rhonchi or wheezes Cardio regular rhythm, S1 normal heart sound, S2 normal heart sound and no murmurs Rate: tachycardic GI soft to palpation, non-tender and non-distended; Negative for hepatosplenomegaly Extremity no clubbing, cyanosis or edema Skin no rashes or lesions noted Neuro no focal motor deficits and no sensory deficits noted Psych affect normal Appearance: appropriate Results Lab / Micro Data Result Diagrams: 09/16/21 13:03 09/16/21 13:05 Labs: Laboratory Results - last 24 hr 09/16/21 13:03: WBC 8.8, RBC 4.98, Hgb 14.2, Hct 45.2, MCV 90.8, MCH 28.5, MCHC 31.4 L, RDW Std Deviation 44.8 H, RDW Coeff of Hung 13.4, Plt Count 373, MPV 8.9, Immature Gran % (Auto) 0.700, Neut % (Auto) 75.2 H, Lymph % (Auto) 7.9 L, [place] % (Auto) 15.6 H, Eos % (Auto) 0.1, Baso % (Auto) 0.5, Absolute Neuts (auto) 6.7, Absolute Lymphs (auto) 0.70 L, Nucleated RBC % 0 09/16/21 13:05: PT 13.1, INR 1.0, APTT 30.0 09/16/21 13:05: Sodium 141, Potassium 3.7, Chloride 109 H, Carbon Dioxide 27.0, Anion Gap 5, BUN 29 H, Creatinine 0.75, Estim Creat Clear Calc 66.30, Est GFR (MDRD) Af Amer 101, Est GFR (MDRD) Non-Af 83, BUN/Creatinine Ratio 38.8 H, Glucose 141 H, Calcium 8.8, Total Bilirubin 0.20, AST 16, ALT 28, Alkaline Phosphatase 88, Total Protein 6.9, Albumin 3.6, Globulin 3.3, Albumin/Globulin Ratio 1.1 09/16/21 13:15: Lactic Acid 2.2 H* 09/16/21 13:30: Urine Color Yellow, Urine Clarity Cloudy, Urine pH 5.0, Ur Specific [place] 1.025, Urine Protein 15 H, Urine Glucose (UA) Normal, Urine Ketones 5 H, Urine Occult Blood 10 H, Urine Nitrite Positive H, Urine Bilirubin Negative, Urine Urobilinogen Normal, Ur Leukocyte Esterase Negative, Urine RBC 0 SEEN, Urine WBC 0 SEEN, Ur Squamous Epith Cells 0 SEEN, Urine Bacteria 2+, Urine Mucus 0 SEEN Assessment & Plan Assessment/Plan (1) Acute cystitis: (2) Severe sepsis: PLAN: 1. Severe sepsis secondary to UTI based on SIRS criteria ?Continue with Rocephin ?Urine cultures pending as are blood cultures ?UA shows a likely mild UTI, there is no leukocyte esterase or white blood cells in the urine ?Her weakness is likely based on a pseudoflare of her MS in the setting of infection, continue with PT/OT evaluation ?Continue with IV fluids 2. HTN ?Blood pressure stable ?We will hold atenolol given sepsis 3. MS ?She is on Ocrevus every 6 months ?This is likely a pseudoflare in the setting of infection DVT: Lovenox Charges/Coding Visit Charges Inpatient E&M: 72347 Init Hosp L2
[2021-09-16] MEDS: 0.9% Normal Saline 1,000 ML 125 ML IV ×2 (15:31→23:06)
[2021-09-16 17:22] LABS: Reflex Lactate? Y
[2021-09-16 18:47] LABS: Lactic Acid 2.8 mmol/L (0.4-1.9)
[2021-09-16] MEDS: 0.9% Normal Saline 1,000 ML 999 ML IV (19:44)
[2021-09-16] MEDS: Acetaminophen 325 MG Tablet 650 MG PO (20:11)
--- NOTE | 2021-09-16 21:53 | NURSING ---
After case management sees pt, Marta solano's sister, would like case management to call her @[phone]
[2021-09-16 22:23] LABS: Lactic Acid 1.8 mmol/L (0.4-1.9)
[2021-09-17] VITALS (11 sets, daily range): BP systolic 124–144; BP diastolic 56–86; PULSE 109–129; RESP 12–29; TEMP 36.7–39.3; O2SAT 85–96
[2021-09-17] MEDS: Acetaminophen 325 MG Tablet 650 MG PO ×2 (05:36→12:26)
[2021-09-17 05:47] LABS: Absolute Lymphocyte Count 0.77 X10^3/uL (0.83-4.51); Absolute Neutrophil Count 8.5 X10^3/uL (2.0-7.7); Basophil# 0.02 X10^3/uL; Basophil% 0.2 % (0-1); Hematocrit 42.9 % (37-47); Hemoglobin 13.2 g/dL (12.0-15.0); Lymphocyte # 0.77 X10^3/ul (0.83-4.51); Lymphocyte % 7.3 % (19-41); Mean Corp Hgb Conc 30.8 g/dL (32-36); Mean Corpuscular Hgb 27.7 pg (27.0-32.0); Mean Corpuscular Volume 90.1 fL (81-99); Mean Platelet Vol. 8.9 fl (6.2-12.0); Monocyte# 1.26 X10^3/uL; Monocyte% 11.9 % (0-10); NRBC Flagged by Analyzer 0 % (0-5); Neutrophil # 8.48 X10^3/uL (2.7-7.7); Neutrophil % 80.2 % (47-70); Platelet Count 294 K/mm3 (150-450); RBC Distribution Width CV 13.5 % (11.6-14.6); RBC Distribution Width SD 44.8 fl (35.1-43.9); Red Blood Count 4.76 M/mm3 (4.2-5.4); White Blood Count 10.6 K/mm3 (4.4-11.0)
[2021-09-17 06:09] LABS: Anion Gap 5 (5-15); BUN 19 mg/dL (7-18); BUN/Creat Ratio 29.5 RATIO (10-20); Calcium,Total 7.8 mg/dL (8.5-10.1); Chloride 108 mmol/L (98-107); Creatinine, Serum 0.64 mg/dL (0.55-1.02); EST Glomerular Filtration Rate 99 mL/min (>60); Est Glom Filt Rate - Afr Amer 119 mL/min (>60); Estimated Creatinine Clearance 77.69 ml/min; Glucose 119 mg/dL (74-106); Potassium 3.6 mmol/L (3.5-5.1); Sodium Level 137 mmol/L (136-145)
[2021-09-17] MEDS: 0.9% Normal Saline 1,000 ML 125 ML IV (06:34)
--- NOTE | 2021-09-17 06:52 | PCM.PN.BLA ---
Progress Note Review of previous records. Urine culture in 2020 showed pansensitive E. coli. Because of continued fever will escalate antibiotics to meropenem. De-escalate as necessary.
--- NOTE | 2021-09-17 06:58 | US_ITS ---
STUDY: RENAL ULTRASOUND - COMPLETE REASON FOR EXAM: Female, 61 years old. UTI recur rant -- scanning portable 7:10 am TECHNIQUE: Ultrasound evaluation of the kidneys was performed with real-time and static toribio-scale imaging. COMPARISON: None. FINDINGS: RIGHT KIDNEY: Normal location of the right kidney, which is normal in size. The right kidney measures 10.5 cm x 5.4 cm x 5.1 cm. There is a normal cortex of the right kidney. The renal cortex measures 1.5 cm. There is no right renal mass or cyst. There are no right renal calculi. There is no right hydronephrosis. DISTAL RIGHT URETER: There is non-visualization of the distal right ureter. There is no demonstrated right ureterovesical junction calculus. There is a visualized right ureteral jet. LEFT KIDNEY: Normal location of the left kidney, which is normal in size. The left kidney measures 11.5 cm x 5.3 cm x 5.6 cm. There is a normal cortex of the left kidney. The renal cortex measures 1.4 cm. There is no left renal mass or cyst. There are no left renal calculi. There is no left hydronephrosis. DISTAL LEFT URETER: There is non-visualization of the distal left ureter. There is no demonstrated left ureterovesical junction calculus. There is a visualized left ureteral jet. BLADDER: The distended urinary bladder has a volume of 105 ml. There is a normal wall thickness of the distended urinary bladder. There is no demonstrated mass within the urinary bladder. There are no demonstrated bladder calculi. US/Kidney and Bladder IMPRESSION: Normal ultrasound of the kidneys and urinary bladder. Electronically Signed: Anthony Hines MD at 11:19 EDT ,
[2021-09-17] MEDS: Vancomycin IV 1,000 MG/200 ML BAG 200 MG IV ×2 (08:00→19:51)
[2021-09-17] MEDS: Enoxaparin 40 MG/0.4 ML Syringe SC (08:02)
--- NOTE | 2021-09-17 08:22 | RAD_ITS ---
STUDY: X-RAY CHEST REASON FOR EXAM: Female, 61 years old. Cough and fever. TECHNIQUE: Single AP portable view of the chest. COMPARISON: None. FINDINGS: There is evidence of a left lower lobe infiltrate with small left pleural effusion. Normal size heart. Normal mediastinum and camille. Normal visualized pulmonary arteries. There is atherosclerotic tortuosity of the aortic arch and descending thoracic aorta. Normal visualized thoracic spine. Normal visualized ribs, clavicles, and shoulders. There is no demonstrated abnormality of the visualized soft tissue structures of the upper abdomen. RAD/Chest 1 View (Portable) IMPRESSION: Left lower lobe infiltrate with a small left pleural effusion. Electronically Signed: Anthony Hines MD at 12:14 EDT ,
--- NOTE | 2021-09-17 09:32 | PCM.RX.CS ---
Consult Pharmacy has been consulted to manage selected antiobiotic: Vancomycin Type of Consult: New start Suspected Infection: Sepsis Prior Doses of Antibiotics Received/Current Regimen: Received 1gm iv x 1 as initial dose on 09.17.21 @0800. Labs: Sodium 137 mmol/L (136-145) 09/17/21 05:28 Potassium 3.6 mmol/L (3.5-5.1) 09/17/21 05:28 Chloride 108 mmol/L (98-107) H 09/17/21 05:28 Carbon Dioxide 24.0 mmol/L (21.0-32.0) 09/17/21 05:28 Anion Gap 5 (5-15) 09/17/21 05:28 BUN 19 mg/dL (7-18) H 09/17/21 05:28 Creatinine 0.64 mg/dL (0.55-1.02) 09/17/21 05:28 Est GFR (MDRD) Af Amer 119 mL/min (>60) 09/17/21 05:28 Est GFR (MDRD) Non-Af 99 mL/min (>60) 09/17/21 05:28 BUN/Creatinine Ratio 29.5 RATIO (10-20) H 09/17/21 05:28 Glucose 119 mg/dL (74-106) H 09/17/21 05:28 Weight used for dosin.9 kg Estimated Creatinine Clearance: 78 ml/min Goal Trough: 15-20 mcg/mL Pharmacy Plan for Drug Dosing: Will begin 1gm iv q12h per protocol. Trough level ordered for before 4th dose on 09.18.21. Pharmacy Service will continue to monitor and adjust dosing as required. Follow-Up Labs: Trough Vancomycin - 09.18.21 @1930 before 2000 dose
--- NOTE | 2021-09-17 10:12 | CASEMGMT ---
Social Work SW to room to meet with patient for initial assessment. RN NIKO introduced self and role at [facility]. Pt voices understanding and consents to assessment at this time. Pt resting in bed in no distress at this time. Pt is A/Ox3 and answers all questions appropriately. Care providers, pharmacy, and demographics verified. PCP: Dr Hughes Specialists: Dr. Willian Epperson, neurologist Preferred Pharmacy: [facility] Insurance: [employer] Prescription Benefit: Yes Living Will/HPOA: Yes, pt states she has a living will and health care POA naming her sister Sandi Baez. Pt aware documents are not on file LNOK: Sister Sandi Baez, lives in [place] Living Arrangements: Pt lives in a one story home with a chair lift in the garage to get in. Pt lives alone and has services through the [facility] Waiver program and Manager Local is Krystle Louis. Pt has an aid through [employer] for 3 hours, 10 meals a week through [employer] and [employer]. Pt has a life alert. Pt's aid assists with showers, cleaning, grocery shopping. When asked how pt gets along when aid is not there pt states, I just pray it goes ok when she's not here. Transportation: Pt only leaves home for medical appointments and uses [employer] for Transportation DME: Walk in shower, shower chair, grab bars in shower, high rise toilet, walker HHC/SNF: none Substance Use: pt denies Mental Health: pt denies Plan: SW spoke with pt regarding discharge plan. Pt has been having more difficulty at home recently with some falls and weakness. SW discussed options of home health therapy as well as short term SNF for rehab prior to returning home. SW provided list of SNF providers including quality and resource use data and consistent with the patient's preferred geographic region, medical needs and insurance network. Pt willing to consider both options. Pt to receive PT/OT today and SW will monitor to assess for appropriate discharge planning. Pt sister requested call from SW and pt gave permission. Phone call to pt sister Sandi who states pt has been having a hard time getting around at home but has been doing ok. Pt sister is concerned about pt safety. SW reviewed conversation and d/c options discussed with pt and pt appreciative of information. Phone call to Krystle Louis at [facility] and updated on pt hospitalization. Will notify [facility] with discharge date and plan. SW will continue to follow for appropriate d/c planning. KAILEE Reynoso
--- NOTE | 2021-09-17 10:17 | PN.HOSP_ITS ---
Subjective Subjective Patient with continued fever overnight with a T-max of 102.8 ?F. She remains tachycardic. Blood pressure is stable and normal. Patient states that she is feeling a little bit better than she did on presentation. She indicates she lives alone with her cats and has every intention of returning back home at discharge if possible. She is reluctant for placement however we did discuss this is a possibility depending on how she does clinically. She states she has intermittent bladder issues with regards to her MS but no significant diagnosis of neurogenic bladder or otherwise. She follows in [place] with neurology for her multiple sclerosis. She has many times where we think the infection is coming from and I noted that we suspect it is her bladder however work-up is in progress and cultures are all pending. Objective Data Objective Data Vital Signs: Vital Signs Temp Pulse Resp BP Pulse Ox 100.3 F H 109 H 20 H 144/67 H 94 09/17/21 10:16 09/17/21 10:16 09/17/21 10:16 09/17/21 10:16 09/17/21 10:16 Oxygen Delivery Method Room Air Weight: 67.9 kg Body Mass Index (BMI) 25.7 Intake & Output: Intake and Output for Last 24 Hours 09/15/21 09/16/21 09/17/21 23:59 23:59 23:59 Intake Total 2620.83 / 2620.83 1412.50 / 1412.50 Output Total 400 / 400 450 / 450 Balance 2220.83 / 2220.83 962.50 / 962.50 Lab / Micro Data Result Diagrams: 09/17/21 05:28 09/17/21 05:28 Labs: Laboratory Results - last 24 hr 09/16/21 13:03: WBC 8.8, RBC 4.98, Hgb 14.2, Hct 45.2, MCV 90.8, MCH 28.5, MCHC 31.4 L, RDW Std Deviation 44.8 H, RDW Coeff of Hung 13.4, Plt Count 373, MPV 8.9, Immature Gran % (Auto) 0.700, Neut % (Auto) 75.2 H, Lymph % (Auto) 7.9 L, Colbert % (Auto) 15.6 H, Eos % (Auto) 0.1, Baso % (Auto) 0.5, Absolute Neuts (auto) 6.7, Absolute Lymphs (auto) 0.70 L, Nucleated RBC % 0 09/16/21 13:05: PT 13.1, INR 1.0, APTT 30.0 09/16/21 13:05: Sodium 141, Potassium 3.7, Chloride 109 H, Carbon Dioxide 27.0, Anion Gap 5, BUN 29 H, Creatinine 0.75, Estim Creat Clear Calc 66.30, Est GFR (M DRD) Af Amer 101, Est GFR (MDRD) Non-Af 83, BUN/Creatinine Ratio 38.8 H, Glucose 141 H, Calcium 8.8, Total Bilirubin 0.20, AST 16, ALT 28, Alkaline Phosphatase 88, Total Protein 6.9, Albumin 3.6, Globulin 3.3, Albumin/Globulin Ratio 1.1 09/16/21 13:15: Lactic Acid 2.2 H* 09/16/21 13:30: Urine Color Yellow, Urine Clarity Cloudy, Urine pH 5.0, Ur Specific [place] 1.025, Urine Protein 15 H, Urine Glucose (UA) Normal, Urine Ketones 5 H, Urine Occult Blood 10 H, Urine Nitrite Positive H, Urine Bilirubin Negative, Urine Urobilinogen Normal, Ur Leukocyte Esterase Negative, Urine RBC 0 SEEN, Urine WBC 0 SEEN, Ur Squamous Epith Cells 0 SEEN, Urine Bacteria 2+, Urine Mucus 0 SEEN 09/16/21 17:45: Lactic Acid 2.8 H* 09/16/21 21:50: Lactic Acid 1.8 09/17/21 05:28: WBC 10.6, RBC 4.76, Hgb 13.2, Hct 42.9, MCV 90.1, MCH 27.7, MCHC 30.8 L, RDW Std Deviation 44.8 H, RDW Coeff of Hung 13.5, Plt Count 294, MPV 8.9, Immature Gran % (Auto) 0.400, Neut % (Auto) 80.2 H, Lymph % (Auto) 7.3 L, Colbert % (Auto) 11.9 H, Eos % (Auto) 0.0, Baso % (Auto) 0.2, Absolute Neuts (auto) 8.5 H, Absolute Lymphs (auto) 0.77 L, Nucleated RBC % 0 09/17/21 05:28: Sodium 137, Potassium 3.6, Chloride 108 H, Carbon Dioxide 24.0, Anion Gap 5, BUN 19 H, Creatinine 0.64, Estim Creat Clear Calc 77.69, Est GFR (MDRD) Af Amer 119, Est GFR (MDRD) Non-Af 99, BUN/Creatinine Ratio 29.5 H, Glucose 119 H, Calcium 7.8 L Micro: Microbiology 09/16/21 13:30 Urine Catheter - Catheter Urine Culture - Preliminary Presumptive E. coli 09/17/21 09:00 Urine, Clean Catch Legionella Antigen - Final 09/17/21 09:00 Urine, Clean Catch Streptococcus pneumoniae Antigen (M - Final Physical Exam Const alert, oriented x3 and average body habitus Constitutional Narrative: Debilitated upper middle-age white female who appears older than stated age, lying in bed, appears ill but nontoxic, comfortable at this time but appears overall fairly weak Exam Limitations: no limitations HEENT head/scalp atraumatic, moist oral mucous membranes and oropharynx normal HEENT Narrative: Mallampati is 2, no thrush present Head and Scalp: normocephalic Resp normal respiratory effort, no retractions and no use of accessory muscles Resp Narrative: Intermittent wet rhonchorous sounding cough Auscultation: rhonchi; Negative for crackles, rales or wheezes Cardio regular rhythm, S1 normal heart sound, S2 normal heart sound, no murmurs, no rub, no gallops, no clicks and no JVD Cardio Narrative: Mildly tachycardic with rates anywhere from 100-120 GI normal to inspection, nondistended, normoactive bowel sounds, soft to palpation, non-tender and non-distended Extremity no clubbing, cyanosis or edema Peripheral Pulses: Yes pulses 2+ throughout Neuro oriented x3 Neuro Narrative: Moves all extremities but extreme weakness noted, no specific focal deficits noted at this time, bilateral mild ptosis noted on exam Sensorium / Orientation: awake and alert Speech: speech normal Psych Psych Narrative: Affect is mildly flat Assessment & Plan Assessment/Plan (1) Sepsis: (2) Acute cystitis: (3) Complicated urinary tract infection: (4) Lactic acidosis: (5) Debility: PLAN: Sepsis secondary to suspected complicated urinary tract infection -Sepsis criteria met with fever and tachycardia and suspected source with UTI -Patient still tachycardic with intermittent fevers suspect tachycardia is reactive due to her temperatures -Blood cultures are pending -Urine culture with current organism being presumptive E. coli -Patient with continued fevers that have been fairly high through the night and therefore antibiotics were broadened and vancomycin was added -We will continue vancomycin and meropenem until blood cultures result [facility] I do anticipate we will be able to narrow once we have susceptibilities -Previously she has had pansensitive E. coli with her last infection being in January 2021 -Patient has penicillin allergy at baseline with a resultant rash -Check renal ultrasound secondary to frequent infections -After discharge will refer to urology with Dr. Cox for urodynamic studies with the patient having frequent infections I do have concern that there may be some neurogenic component with her multiple sclerosis -We will continue IV fluids for now but decrease rate from 125 cc/h to 50 cc/h as patient is able to take p.o. as well Lactic acidosis -Resolved ? Dysphagia -Patient with wet moist cough -We will have patient evaluated by speech therapy as I do have concerns that she may have some aspiration Hypertension -We will hold home atenolol at this time given sepsis -Blood pressures remained stable may be able to add this -Add as needed labetalol for systolic pressure greater than 160 Debility/generalized weakness -Patient with MS at baseline however I suspect her acute weakness is related to a pseudoflare of her MS in the setting of infection -PT/OT consultation -Patient very adamant on going home at discharge at the present time Multiple sclerosis -Patient follows in [place] with neurology -On Dr. Wise every 6 months -As noted above suspect current weakness is a pseudoflare -If weakness does not improve with improvement in infection will consider MRI of the brain DVT prophylaxis -Continue Lovenox CODE STATUS -Full code Charges/Coding Visit Charges Inpatient E&M: 79889 Subs Hosp L2
--- NOTE | 2021-09-17 13:30 | CASEMGMT ---
Social Work SW reviewed therapy notes. Pt required Mod-Max Ax2 to get out of bed and to ambulate 2 ft. EUSEBIA met with pt and discussed discharge plan. Pt agreeable to go to SNF. SW reviewed list with her but pt stating she wants to go somewhere good. SW informed pt [facility] is only facility in [place] in network with insurance and 5/5 star. Pt stating SW should call sister to discuss. Pt also requesting to talk to sister. Phone call to sister Sandi and provided update and reviewed list of SNF's including start ratings. Sandi requesting [facility]. left with Lauren at [facility] to check on bed availability. Will await return call. KAILEE Reynoso
--- NOTE | 2021-09-17 16:16 | CASEMGMT ---
Social Work Return call from Lauren at [facility] and they are able to accept pt. SW requested precert be started. Phone call to pt sister and VM left. SW met with pt and updated. Pt is upset because she cannot return home. SW spoke with pt regarding needed assist of 2 and pt does not have this at home. Support provided. Pt reluctantly agreeable to SNF placement at [facility]. Plan: [facility], pending precert. KAILEE Reynoso
--- NOTE | 2021-09-17 23:21 | EKG12_ITS ---
Test Reason : Blood Pressure : / mmHG Vent. Rate : 133 BPM Atrial Rate : 133 BPM P-R Int : 152 ms QRS Dur : 064 ms QT Int : 278 ms P-R-T Axes : 056 -78 051 degrees QTc Int : 413 ms Sinus tachycardia Left axis deviation Inferior infarct (cited on or before 17-SEP-2021) Abnormal ECG When compared with ECG of 16-SEP-2021 13:21, No significant change was found Confirmed by FÉLIX BOO, RUIZ ([id number]), science editor NICANOR REBOLLAR ([id number]) on 09/23/2021 12:57:10 P M Referred By: YESENIA Confirmed By:ENID HEARD MD
--- NOTE | 2021-09-17 23:23 | RAD_ITS ---
EXAM: XR CHEST, 1 VIEW CLINICAL INDICATION: respiratory TECHNIQUE: Frontal view of the chest. This report was created using [employer] report generation technology. COMPARISON: 09/17/2021 at 8:19 AM. FINDINGS: LUNGS AND PLEURAL SPACES: Persistent consolidation left lower lobe may be less dense than on the previous exam. No other changes. Emphysema most prominent in the upper lobes. No pneumothorax. No effusion. HEART: Unremarkable. Cardiac silhouette not enlarged. MEDIASTINUM: Central airways and mediastinal contour are unremarkable. BONES/JOINTS: Unremarkable. SOFT TISSUES: Unremarkable. RAD/Chest 1 View (Portable) IMPRESSION: 1. Persistent consolidation left lower lobe may be less dense than on the previous exam. No other changes. 2. Emphysema most prominent in the upper lobes. Electronically Signed: Adelso Valerio MD at 23:42 EDT ,
[2021-09-17] MEDS: Ipratropium/Albuterol Sulfate 3 ML AMPUL.NEB INHALATION (23:41)
[2021-09-17 23:51] LABS: Allen Test Positive; Base Excess -2 mmol/L (-2 to +2); Bicarbonate 21.8 mmol/L (22-26); Blood Gas Specimen Type ART; FI02 100; O2 Delivery Device BiPAP; PEEP 8; PO2 51 mmHG (75-100); SITE L Radial; SO2 88 % (95-99); Total Carbon Dioxide 23 mmol/L; pCO2 31.7 mmHg (35-45); pH 7.45 (7.35-7.45)
[2021-09-18] VITALS (40 sets, daily range): BP systolic 104–152; BP diastolic 58–101; PULSE 80–132; RESP 12–40; TEMP 36.1–37; O2SAT 68–100
--- NOTE | 2021-09-18 00:26 | NURSING ---
DR PATTERSON NOTIFIED OF + COVID
--- NOTE | 2021-09-18 00:39 | PCM.PN.BLA ---
Progress Note Notify the patient is in respiratory distress and hypoxic. Oxygen saturation was in the 60s. Patient was examined at the bedside. Lethargic Tachycardia, S1-S2 present Tachypnea rhonchi throughout Abdomen soft nontender nondistended bowel sounds present Extremities no edema Acute hypoxic respiratory failure secondary to COVID-19 pneumonia. ABG ordered. ABG returned with respiratory alkalosis and hypoxemia. Chest x-ray was ordered. Placed on BiPAP EKG shows sinus tachycardia. RSV, rapid influenza screen and COVID-19 ordered. Rapid Covid antigen returned positive. Decadron IV ordered. Remdesivir ordered. Creatinine clearance is more than 30 and LFTs are normal. Trend CBC and CMP. Placed on enhanced precautions. Escalate dose of Lovenox for DVT prophylaxis.
[2021-09-18] MEDS: 0.9% Saline Lock 10 ML Syringe IV ×2 (01:06→21:58)
[2021-09-18] MEDS: dexAMETHasone 10 MG/ML Vial 6 MG IV (01:07)
[2021-09-18 06:28] LABS: Absolute Neutrophil Count 9.8 X10^3/uL (2.0-7.7); Basophil# 0.02 X10^3/uL; Basophil% 0.2 % (0-1); Hemoglobin 14.1 g/dL (12.0-15.0); Lymphocyte % 4.5 % (19-41); Mean Corp Hgb Conc 31.3 g/dL (32-36); Mean Corpuscular Hgb 27.8 pg (27.0-32.0); Mean Corpuscular Volume 88.6 fL (81-99); Monocyte# 0.71 X10^3/uL; Monocyte% 6.4 % (0-10); NRBC Flagged by Analyzer 0 % (0-5); Neutrophil # 9.81 X10^3/uL (2.7-7.7); Neutrophil % 88.5 % (47-70); POSITIVE DIFFERENTIAL YES; Platelet Count 289 K/mm3 (150-450); RBC Distribution Width CV 13.7 % (11.6-14.6); RBC Distribution Width SD 44.6 fl (35.1-43.9); Red Blood Count 5.08 M/mm3 (4.2-5.4); White Blood Count 11.1 K/mm3 (4.4-11.0)
[2021-09-18 06:31] LABS: Differential Indicated SCAN CRITERIA MET
[2021-09-18 06:48] LABS: Differential Comment SCANNED
[2021-09-18 07:03] LABS: ALB/GLOB Ratio 0.8 RATIO (0.9-2.4); AST(SGOT) 26 U/L (15-37); Alanine Aminotransfer ALT/SGPT 23 U/L (13-56); Albumin, Serum 2.7 g/dL (3.2-5.0); Alkaline Phosphatase 60 U/L (45-117); Anion Gap 6 (5-15); BUN 14 mg/dL (7-18); BUN/Creat Ratio 20.4 RATIO (10-20); Calcium,Total 8.2 mg/dL (8.5-10.1); Chloride 107 mmol/L (98-107); Creatinine, Serum 0.69 mg/dL (0.55-1.02); EST Glomerular Filtration Rate 92 mL/min (>60); Est Glom Filt Rate - Afr Amer 111 mL/min (>60); Estimated Creatinine Clearance 72.06 ml/min; Globulin 3.5 g/dL (2.2-4.2); Glucose 158 mg/dL (74-106); Potassium 3.3 mmol/L (3.5-5.1); Protein, Total 6.2 g/dL (6.4-8.2); Sodium Level 140 mmol/L (136-145)
[2021-09-18] MEDS: Vancomycin IV 1,000 MG/200 ML BAG 200 MG IV (07:39)
[2021-09-18] MEDS: Potassium Chloride Oral Tablet 20 MEQ 40 MEQ PO ×2 (07:39→17:50)
[2021-09-18] MEDS: Atenolol 25 MG Tablet PO (09:04)
[2021-09-18] MEDS: Enoxaparin 30 MG/0.3 ML Syringe SC ×2 (09:04→21:58)
--- NOTE | 2021-09-18 09:41 | NURSING ---
SpO2 74% on continuous monitor. RN in to assess pt at bedside, SpO2 72%, HR 136 on 6L O2 NC. Attepmted hi-flow NC up to 15L, pt sustained sats in 60%'s. Pt drowsy,awakens to verbal command. Placed pt on bipap 75% O2, SPo2 95%, HR 123bpm Pt tolerating well. Dr. Apodaca and RT made aware.
--- NOTE | 2021-09-18 10:54 | CPS ---
Addendum entered and electronically signed by Buffy Diaz 09/21/21 11:20: pt was placed on airvo but desated into the low 80s after 15 minutes ( 60 L 80%) switched back to bipap 14/8 r 12 75% Original Note: pt was placed on airvo but desated into the low 80s after 15 minutes ( 60 L 80%) switched back to bipap 14/8 r 12 75%
[2021-09-18] MEDS: Furosemide 40 MG/4 ML Vial IV ×2 (11:36→17:50)
--- NOTE | 2021-09-18 12:08 | NURSING ---
Report called to KRIS Villalobos in ICU.
--- NOTE | 2021-09-18 14:03 | PCM.PN.HOSP ---
Subjective Subjective Patient continued to have fevers throughout the day yesterday however developed some respiratory distress last evening after being on room air for a good bit of the day. A Covid test was performed and found to be positive. It appears that she was initially on 2 L and then placed on BiPAP however upon discussion with the floor they did titrate up her oxygen to 11 L high heated high flow nasal cannula and then placed BiPAP. She had been stable on BiPAP through the night and we did try to wean her to air Vo however she was not able to tolerate this and we had to replace her on BiPAP and she was transferred to the ICU. Patient is now weaned to air Vo. She had good output with Lasix dosing. She states that her breathing is improved from this morning. Objective Data Objective Data Vital Signs: Vital Signs Temp Pulse Resp BP Pulse Ox 98.1 F 97 21 H 104/58 L 95 09/18/21 11:30 09/18/21 13:00 09/18/21 13:00 09/18/21 13:00 09/18/21 13:00 Oxygen Flow Rate (L/min) 6 Oxygen Delivery Method Bi-pap Weight: 67.9 kg Body Mass Index (BMI) 25.7 Intake & Output: Intake and Output for Last 24 Hours 09/16/21 09/17/21 09/18/21 23:59 23:59 23:59 Intake Total 2620.83 / 2620.83 2555.33 / 2555.33 890 / 890 Output Total 400 / 400 750 / 750 600 / 600 Balance 2220.83 / 2220.83 1805.33 / 1805.33 290 / 290 Lab / Micro Data Result Diagrams: 09/18/21 06:14 09/18/21 06:14 Labs: Laboratory Results - last 24 hr 09/18/21 06:14: WBC 11.1 H, RBC 5.08, Hgb 14.1, Hct 45.0, MCV 88.6, MCH 27.8, MCHC 31.3 L, RDW Std Deviation 44.6 H, RDW Coeff of Hung 13.7, Plt Count 289, MPV 9.0, Immature Gran % (Auto) 0.400, Neut % (Auto) 88.5 H, Lymph % (Auto) 4.5 L, Gage % (Auto) 6.4, Eos % (Auto) 0.0, Baso % (Auto) 0.2, Absolute Neuts (auto) 9.8 H, Absolute Lymphs (auto) 0.50 L, Nucleated RBC % 0, Differential Comment SCANNED 09/18/21 06:14: Sodium 140, Potassium 3.3 L, Chloride 107, Carbon Dioxide 27.0, Anion Gap 6, BUN 14, Creatinine 0.69, Estim Creat Clear Calc 72.06, Est GFR (MDRD) Af Amer 111, Est GFR (MDRD) Non-Af 92, BUN/Creatinine Ratio 20.4 H, Glucose 158 H, Calcium 8.2 L, Total Bilirubin 0.20, AST 26, ALT 23, Alkaline Phosphatase 60, Total Protein 6.2 L, Albumin 2.7 L, Globulin 3.5, Albumin/Globulin Ratio 0.8 L Micro: Microbiology 09/16/21 13:15 Blood Culture (Wb) - Anticubital Left Blood Culture - Preliminary No growth in 48 hours. 09/16/21 13:03 Blood Culture (Wb) - Anticubital Right Blood Culture - Preliminary No growth in 48 hours. 09/18/21 09:05 Sputum, Expectorated/Coughed Gram Stain - Final 09/16/21 13:30 Urine Catheter - Catheter Urine Culture - Final Presumptive E. coli 09/17/21 23:25 Mucosa - Nasopharyngeal Respiratory Panel (PCR) - Final 09/17/21 23:25 Nasal Secretion SARS-CoV-2 Antigen (Rapid) - Final SARS-CoV-2 (COVID 19) 09/17/21 09:00 Urine, Clean Catch Legionella Antigen - Final 09/17/21 09:00 Urine, Clean Catch Streptococcus pneumoniae Antigen (M - Final ABG Data ABG results: ABG 09/17/21 23:45 Specimen Type ART Sample Site L Radial pH 7.45 Bicarbonate Actual 21.8 L Total CO2 23 Base Excess -2 O2 Saturation 88 L O2 % 100 ABG pCO2 31.7 L ABG pO2 51 L Bebeto Test Positive O2 Delivery Device BiPAP POC PEEP 8 Radiography Diagnostic Testing: Radiology Impression Chest X-Ray 09/17/21 23:23 IMPRESSION: 1. Persistent consolidation left lower lobe may be less dense than on the previous exam. No other changes. 2. Emphysema most prominent in the upper lobes. Electronically Signed: Adelso Valerio MD at 23:42 EDT , Physical Exam Const alert, oriented x3 and average body habitus Constitutional Narrative: Debilitated upper middle-age white female who appears older than stated age, lying in bed, appears extremely weak, no current respiratory distress, currently on air Vo General Appearance: cooperative Exam Limitations: no limitations HEENT normocephalic, head/scalp atraumatic, moist oral mucous membranes and oropharynx normal HEENT Narrative: Mallampati is 2, no thrush present Head and Scalp: normocephalic Eyes PERRL, EOMs intact bilaterally and conjunctivae normal Neck no lymphadenopathy, supple and no JVD Neck Narrative: Trachea midline, no thyroid enlargement Resp no retractions and no use of accessory muscles Resp Narrative: Crackles at bilateral bases with few scattered rhonchi most noted at right base, mild tachypnea but no signs of extremitas Auscultation: crackles and rhonchi; Negative for rales or wheezes Cardio regular rhythm, S1 normal heart sound, S2 normal heart sound, no murmurs, no rub, no gallops, no clicks and no JVD Cardio Narrative: Mildly tachycardic Rate: tachycardic GI normal to inspection, nondistended, normoactive bowel sounds, soft to palpation, non-tender and non-distended; Negative for hepatosplenomegaly Extremity no clubbing, cyanosis or edema Peripheral Pulses: Yes pulses 2+ throughout Skin no rashes or lesions noted, no wounds, skin turgor normal, no jaundice, no petechiae and no mottling Skin Narrative: Pale Neuro oriented x3, moves all extremities, no focal motor deficits and no sensory deficits noted Neuro Narrative: Moves all extremities but extreme weakness noted, no specific focal deficits noted at this time, bilateral mild ptosis noted on exam Sensorium / Orientation: awake and alert Speech: speech normal Psych affect normal Psych Narrative: Patient is currently frustrated secondary to the fact that she has COVID-19, affect is normal Appearance: appropriate Assessment & Plan Assessment/Plan (1) Sepsis: (2) Acute cystitis: (3) Complicated urinary tract infection: (4) Lactic acidosis: (5) Debility: (6) Acute respiratory failure with hypoxia: (7) COVID-19: PLAN: Acute hypoxic respiratory failure secondary to COVID-19 pneumonia -Patient was fully vaccinated and boosted however she is immunosuppressed secondary to her treatment for her multiple sclerosis -We will make n.p.o. except for p.o. meds for now while on continuous BiPAP -Wean oxygen as able -Patient was transferred to the intensive care unit as she is high risk for decompensation -Add incentive spirometry and Pep therapy -Remdesivir day 1 of 5 -Decadron day 1 of 10 -Check strep pneumo and Legionella antigens -Check CRP assess if patient would be a candidate for baricitinib however this may be deferred secondary to immunosuppression and risk for bacterial infection -Mucinex added -Lasix 40 mg IV push x1 dose -Continue broad-spectrum antibiotics -We will obtain a sputum culture if able -Consult pulmonary/critical care medicine--> Case was discussed with the instrument and electrical technician earlier today Sepsis secondary to suspected complicated E. coli urinary tract infection/COVID-19 -Sepsis criteria met with fever and tachycardia and suspected source with UTI -Patient still tachycardic with intermittent fevers suspect tachycardia is reactive due to her temperatures -Blood cultures are negative at 48 hours -Urine culture shows pansensitive E. coli that is ESBL negative -We will continue meropenem and discontinue vancomycin -Serum culture is pending -Ultrasound did confirm some urinary retention and therefore patient will need follow-up with urology after discharge -refer to urology with Dr. Cox for urodynamic studies with the patient having frequent infections I do have concern that there may be some neurogenic component with her multiple sclerosis -Hold IV fluids ? Dysphagia -Patient with wet moist cough -We will have patient evaluated by speech therapy as I do have concerns that she may have some aspiration -Therapy recommended supervise meals with regular textures and thin liquids having meats cut bite-size and oral care following meals with head of bed at 90 degrees during meal intake -Continue speech therapy Hypertension -Scheduled IV labetalol every 6 hours -Restart home atenolol when patient able to take p.o. more regularly -As needed medications available Debility/generalized weakness -Patient with MS at baseline however I suspect her acute weakness is related to a pseudoflare of her MS in the setting of infection -PT/OT following -Patient very adamant on going home at discharge at the present time however I do not know that this is going to be realistic and I suspect she will need some placement at discharge Multiple sclerosis -Patient follows in [place] with neurology -On Ocrevus every 6 months -As noted above suspect current weakness is a pseudoflare -If weakness does not improve with improvement in infection will consider MRI of the brain DVT prophylaxis -Continue Lovenox CODE STATUS -Full code Charges/Coding Visit Charges Inpatient E&M: 37225 Subs Hosp L3
[2021-09-18] MEDS: Labetalol (Prefilled) 20 MG/4 ML IV (17:50)
[2021-09-18 20:09] LABS: Vancomycin, Trough Level 14.1 ug/mL (5.0-15.0)
[2021-09-18] MEDS: guaiFENesin 1,200 MG Tablet 1200 MG PO (21:58)
[2021-09-19] VITALS (41 sets, daily range): BP systolic 99–137; BP diastolic 54–85; PULSE 71–122; RESP 12–24; TEMP 36.5–36.8; O2SAT 90–100
[2021-09-19] MEDS: Labetalol (Prefilled) 20 MG/4 ML IV ×4 (00:45→23:32)
[2021-09-19] MEDS: CHLORHEXIDINE GLUC 2% CLOTH 1 EACH TOWELETTE TOPICAL (01:01)
[2021-09-19 04:47] LABS: Absolute Lymphocyte Count 0.78 X10^3/uL (0.83-4.51); Absolute Neutrophil Count 10.7 X10^3/uL (2.0-7.7); Basophil# 0.02 X10^3/uL; Basophil% 0.2 % (0-1); Hematocrit 45.7 % (37-47); Hemoglobin 14.7 g/dL (12.0-15.0); Lymphocyte # 0.78 X10^3/ul (0.83-4.51); Lymphocyte % 6.3 % (19-41); Mean Corp Hgb Conc 32.2 g/dL (32-36); Mean Corpuscular Hgb 28.2 pg (27.0-32.0); Mean Corpuscular Volume 87.5 fL (81-99); Mean Platelet Vol. 9.3 fl (6.2-12.0); Monocyte# 0.79 X10^3/uL; Monocyte% 6.4 % (0-10); NRBC Flagged by Analyzer 0 % (0-5); Neutrophil % 86.7 % (47-70); Platelet Count 329 K/mm3 (150-450); RBC Distribution Width CV 13.8 % (11.6-14.6); RBC Distribution Width SD 44.4 fl (35.1-43.9); Red Blood Count 5.22 M/mm3 (4.2-5.4); White Blood Count 12.3 K/mm3 (4.4-11.0)
[2021-09-19 05:07] LABS: Phosphorus 2.5 mg/dL (2.5-4.9)
[2021-09-19 05:14] LABS: ALB/GLOB Ratio 0.7 RATIO (0.9-2.4); AST(SGOT) 26 U/L (15-37); Alanine Aminotransfer ALT/SGPT 24 U/L (13-56); Albumin, Serum 2.5 g/dL (3.2-5.0); Alkaline Phosphatase 58 U/L (45-117); Anion Gap 9 (5-15); BUN 31 mg/dL (7-18); BUN/Creat Ratio 34.4 RATIO (10-20); Calcium,Total 8.4 mg/dL (8.5-10.1); Chloride 108 mmol/L (98-107); EST Glomerular Filtration Rate 67 mL/min (>60); Est Glom Filt Rate - Afr Amer 81 mL/min (>60); Estimated Creatinine Clearance 55.25 ml/min; Globulin 3.7 g/dL (2.2-4.2); Glucose 189 mg/dL (74-106); Magnesium 2.1 mg/dL (1.6-2.6); Potassium 3.9 mmol/L (3.5-5.1); Protein, Total 6.2 g/dL (6.4-8.2); Sodium Level 142 mmol/L (136-145); Thyroid Stim Hormone (TSH) 0.74 uIU/mL (0.358-3.74)
--- NOTE | 2021-09-19 07:48 | CON.PCM.CC_ITS ---
Assessment & Plan Assessment/Plan (1) Acute respiratory failure with hypoxia: (2) COVID-19: (3) Sepsis: (4) Complicated urinary tract infection: (5) Debility: PLAN: RECOMMENDATIONS: 1. Continue Remdesivir (09/21/2021) and Decadron (09/28/2021). Refused baricitinib 2. Diuresis as tolerates 3. Initiate aggressive pulmonary toileting 4. Continue antibiotics for UTI. Okay to narrow antibiotic spectrum 5. Electrolyte repletion as indicated 6. No indication for systemic anticoagulation IMPRESSIONS: 1. Acute hypoxic respiratory failure secondary to COVID-19 Patient is vaccinated and boosted. Unclear onset as patient may be between 7 and 10 days depending on if weakness or respiratory symptoms are used as an indication. Patient is on Remdesivir. CRP is significantly elevated. This is likely combination of COVID, UTI and possible underlying MS. Did discuss with the patient about baricitinib, but she is not interested in initiation of therapy at this time. Patient is appropriately on Decadron. Patient does have a productive cough, so Mucinex will be continued with additional pulmonary toileting techniques. Diuresis as tolerated. Significant concern for underlying weakness associated with MS complicating respiratory status 2. Sepsis secondary to complicated E. coli UTI Patient reports a history of penicillin allergy, but did tolerate meropenem well. Patient transitioned to ceftriaxone. Will monitor for rash. Patient will need an outpatient follow-up as urinary retention was noted on ultrasound. 3. Debility/MS/multiple allergies Complicates care, management, recovery and prognosis. Consult PT/OT to help with out of bed as tolerated. Monitor for drug intolerance. HPI Consult Data Date of Consult: 09/19/21 HPI Narrative HPI Narrative: BRITNEY PERAZA is a 61 F, with past medical history listed below, who presents to [facility] on 09/16/2021 secondary to 3 to 4 days of generalized weakness and new onset fever. Patient does have home health nurse visit her at baseline secondary to a diagnosis of multiple sclerosis. On home health nurse evaluation, patient was noted to be confused with fever, so EMS was called. Patient reportedly had also called EMS secondary to difficulty with getting out of her chair. Patient denied any cough, headache, chest pain or shortness of breath. Patient denied any injury from her falls despite being on blood thinners. In the ER, patient was noted to have a temperature of 100.1 ?F, tachycardic at 122 and normotensive at 140/78. Patient was tolerating room air well. Laboratory work-up was relatively unremarkable with a normal CBC, coagulation and chemistries. Patient did have a slightly elevated bicarbonate of 27 and a lactate of 2.2. Urinalysis was suggestive of a UTI. There was concern for a urinary tract infection leading to metabolic encephalopathy and weakness, so the patient was admitted to [facility] for further evaluation. On [facility], patient did receive antibiotics, but persisted in fever and had had a hypoxic episode. This led to a Covid test which subsequently came back positive. Over the last 24 to 48 hours, patient's oxygenation status has been very tenuous. Patient has abrupt drops in saturation requiring rescue with BiPAP at 100%. Patient does report a cough productive of thick white sputum at this time. Patient states that she was vaccinated and boosted x1. Patient is not on ivermectin or other prophylaxis. Patient is currently denying any chest pain, abdominal pain, nausea or vomiting. Patient feels subjectively unchanged compared to yesterday, but has been able to be weaned Airvo. No epistaxis has been reported. Review of systems otherwise negative from a constitutional, HEENT, respiratory, cardiovascular, GI, genitourinary, musculoskeletal, skin, neurologic, psychiatric and hematologic system unless stated above. [facility] Medical History Depression Hypertension Multiple sclerosis Vertigo Home Medications acetaminophen 1,000 mg PO Q4H PRN PRN 07/03/18 [History Last Taken 09/16/21] atenolol 25 mg PO DAILY 07/03/18 [History Last Taken 09/16/21] Allergy/AdvReac Type Severity Reaction Status Date / Time naproxen Allergy Rash Verified 01/24/21 00:24 Penicillins Allergy Rash Verified 01/24/21 00:24 Sulfa (Sulfonamide Allergy Rash Verified 01/24/21 00:24 Antibiotics) tizanidine AdvReac Unknown Verified 01/24/21 00:24 Family History Other Hypertension Surgical History Hx of appendectomy Social History Smoking Status: Never smoker ROS ROS Narrative See HPI Physical Exam Const alert, oriented x3 and average body habitus General Appearance: cooperative, frail and appears older than stated age Exam Limitations: no limitations Nutritional Appearance: Negative for overweight HEENT normocephalic, head/scalp atraumatic, moist oral mucous membranes and oropharynx normal Head and Scalp: normocephalic and atraumatic Eyes PERRL, EOMs intact bilaterally and conjunctivae normal Neck no lymphadenopathy, supple and no JVD Neck Narrative: Trachea midline, no thyroid enlargement Resp no retractions and no use of accessory muscles Auscultation: rhonchi right lower; Negative for rales or wheezes Cardio regular rhythm, S1 normal heart sound, S2 normal heart sound, no murmurs, no rub, no gallops, no clicks and no JVD Rate: tachycardic GI normal to inspection, nondistended, normoactive bowel sounds, soft to palpation, non-tender and non-distended; Negative for hepatosplenomegaly Extremity no clubbing, cyanosis or edema Peripheral Pulses: Yes pulses 2+ throughout Skin no rashes or lesions noted, no wounds, skin turgor normal, no jaundice, no petechiae and no mottling Skin Narrative: Pale Neuro oriented x3, moves all extremities, no focal motor deficits and no sensory deficits noted Neuro Narrative: Moves all extremities but extreme weakness noted, no specific focal deficits noted at this time, bilateral mild ptosis noted on exam Sensorium / Orientation: awake and alert Speech: speech normal Psych affect normal Psych Narrative: Patient is currently frustrated secondary to the fact that she has COVID-19, affect is normal Appearance: appropriate Lab / Micro Data Result Diagrams: 09/19/21 04:45 09/19/21 04:45 Labs: Laboratory Results - last 24 hr 09/18/21 06:14: C-React Prot Ext Range 172.00 H 09/18/21 19:20: Vancomycin Trough 14.1 09/19/21 04:45: WBC 12.3 H, RBC 5.22, Hgb 14.7, Hct 45.7, MCV 87.5, MCH 28.2, MCHC 32.2, RDW Std Deviation 44.4 H, RDW Coeff of Hung 13.8, Plt Count 329, MPV 9.3, Immature Gran % (Auto) 0.400, Neut % (Auto) 86.7 H, Lymph % (Auto) 6.3 L, [place] % (Auto) 6.4, Eos % (Auto) 0.0, Baso % (Auto) 0.2, Absolute Neuts (auto) 10.7 H, Absolute Lymphs (auto) 0.78 L, Nucleated RBC % 0 09/19/21 04:45: Sodium 142, Potassium 3.9, Chloride 108 H, Carbon Dioxide 25.0, Anion Gap 9, BUN 31 H, Creatinine 0.90, Estim Creat Clear Calc 55.25, Est GFR (MDRD) Af Amer 81, Est GFR (MDRD) Non-Af 67, BUN/Creatinine Ratio 34.4 H, Glucose 189 H, Calcium 8.4 L, Magnesium 2.1, Total Bilirubin 0.30, AST 26, ALT 24, Alkaline Phosphatase 58, Total Protein 6.2 L, Albumin 2.5 L, Globulin 3.7, Albumin/Globulin Ratio 0.7 L, TSH 0.74 09/19/21 04:45: Phosphorus 2.5 Micro: Microbiology 09/18/21 19:20 Sputum, Expectorated/Coughed Gram Stain - Preliminary 09/18/21 14:20 Urine, Clean Catch Legionella Antigen - Final 09/18/21 14:20 Urine, Clean Catch Streptococcus pneumoniae Antigen (M - Final 09/16/21 13:15 Blood Culture (Wb) - Anticubital Left Blood Culture - Preliminary No growth in 48 hours. 09/16/21 13:03 Blood Culture (Wb) - Anticubital Right Blood Culture - Preliminary No growth in 48 hours. 09/18/21 09:05 Sputum, Expectorated/Coughed Gram Stain - Final 09/16/21 13:30 Urine Catheter - Catheter Urine Culture - Final Presumptive E. coli 09/17/21 23:25 Mucosa - Nasopharyngeal Respiratory Panel (PCR) - Final Charges/Coding Visit Charges Inpatient E&M: 01315 Init Hosp L3
[2021-09-19] MEDS: Enoxaparin 30 MG/0.3 ML Syringe SC ×2 (09:29→20:57)
[2021-09-19] MEDS: Ceftriaxone 1 GM/50 ML BAG IV (09:29)
[2021-09-19] MEDS: guaiFENesin 1,200 MG Tablet 1200 MG PO ×2 (09:30→20:57)
[2021-09-19] MEDS: dexAMETHasone 10 MG/ML Vial 6 MG IV (09:30)
[2021-09-19] MEDS: Insulin Lispro 100 UNIT/ML INSULN.PEN SC ×2 (11:42→16:57)
[2021-09-19 12:10] LABS: Bedside Glucose 214 mg/dL (74-106)
--- NOTE | 2021-09-19 13:16 | PN.HOSP_ITS ---
Subjective Subjective Patient had been weaned to 8 L nasal cannula last evening but then developed more respiratory distress and was placed back on BiPAP. She has since been weaned to air flow and now back on heated high flow nasal cannula 10 L. Objective Data Objective Data Vital Signs: Vital Signs Temp Pulse Resp BP Pulse Ox 97.7 F L 71 23 H 115/60 95 09/19/21 11:54 09/19/21 13:00 09/19/21 13:00 09/19/21 13:00 09/19/21 13:00 Oxygen Flow Rate (L/min) 10 Oxygen Delivery Method High Flow Weight: 68.5 kg Body Mass Index (BMI) 25.7 Intake & Output: Intake and Output for Last 24 Hours 09/17/21 09/18/21 09/19/21 23:59 23:59 23:59 Intake Total 2555.33 / 2555.33 1010 / 1010 540 / 540 Output Total 750 / 750 2800 / 2800 480 / 480 Balance 1805.33 / 1805.33 -1790 / -1790 60 / 60 Lab / Micro Data Result Diagrams: 09/19/21 04:45 09/19/21 04:45 Labs: Laboratory Results - last 24 hr 09/18/21 06:14: C-React Prot Ext Range 172.00 H 09/18/21 19:20: Vancomycin Trough 14.1 09/19/21 04:45: WBC 12.3 H, RBC 5.22, Hgb 14.7, Hct 45.7, MCV 87.5, MCH 28.2, MCHC 32.2, RDW Std Deviation 44.4 H, RDW Coeff of Hung 13.8, Plt Count 329, MPV 9.3, Immature Gran % (Auto) 0.400, Neut % (Auto) 86.7 H, Lymph % (Auto) 6.3 L, [place] % (Auto) 6.4, Eos % (Auto) 0.0, Baso % (Auto) 0.2, Absolute Neuts (auto) 10.7 H, Absolute Lymphs (auto) 0.78 L, Nucleated RBC % 0 09/19/21 04:45: Sodium 142, Potassium 3.9, Chloride 108 H, Carbon Dioxide 25.0, Anion Gap 9, BUN 31 H, Creatinine 0.90, Estim Creat Clear Calc 55.25, Est GFR (MDRD) Af Amer 81, Est GFR (MDRD) Non-Af 67, BUN/Creatinine Ratio 34.4 H, Glucose 189 H, Calcium 8.4 L, Magnesium 2.1, Total Bilirubin 0.30, AST 26, ALT 24, Alkaline Phosphatase 58, Total Protein 6.2 L, Albumin 2.5 L, Globulin 3.7, Albumin/Globulin Ratio 0.7 L, TSH 0.74 09/19/21 04:45: Phosphorus 2.5 09/19/21 11:37: POC Glucose 214 H Micro: Microbiology 09/18/21 19:20 Sputum, Expectorated/Coughed Gram Stain - Final 09/18/21 19:20 Sputum, Expectorated/Coughed Respiratory Culture - Preliminary Culture exhibits no growth. 09/18/21 09:05 Sputum, Expectorated/Coughed Gram Stain - Final 09/18/21 09:05 Sputum, Expectorated/Coughed Respiratory Culture - Preliminary Appears to be normal respiratory ibeth. Further studies to follow. 09/18/21 14:20 Urine, Clean Catch Legionella Antigen - Final 09/18/21 14:20 Urine, Clean Catch Streptococcus pneumoniae Antigen (M - Final 09/16/21 13:15 Blood Culture (Wb) - Anticubital Left Blood Culture - Preliminary No growth in 48 hours. 09/16/21 13:03 Blood Culture (Wb) - Anticubital Right Blood Culture - Preliminary No growth in 48 hours. 09/16/21 13:30 Urine Catheter - Catheter Urine Culture - Final Presumptive E. coli 09/17/21 23:25 Mucosa - Nasopharyngeal Respiratory Panel (PCR) - Final 09/17/21 23:25 Nasal Secretion SARS-CoV-2 Antigen (Rapid) - Final SARS-CoV-2 (COVID 19) 09/17/21 09:00 Urine, Clean Catch Legionella Antigen - Final 09/17/21 09:00 Urine, Clean Catch Streptococcus pneumoniae Antigen (M - Final Physical Exam Const alert, oriented x3 and average body habitus Constitutional Narrative: Debilitated upper middle-age white female who appears older than stated age, lying in bed, appears extremely weak, no current respiratory distress, currently on air Vo General Appearance: cooperative Exam Limitations: no limitations HEENT normocephalic, head/scalp atraumatic, moist oral mucous membranes and oropharynx normal Eyes PERRL, EOMs intact bilaterally and conjunctivae normal Neck no lymphadenopathy, supple and no JVD Neck Narrative: Trachea midline, no thyroid enlargement Resp no retractions and no use of accessory muscles Resp Narrative: Crackles at bilateral bases with few scattered rhonchi most noted at right base, mild tachypnea but no signs of extremitas Auscultation: crackles and rhonchi; Negative for rales or wheezes Cardio regular rhythm, S1 normal heart sound, S2 normal heart sound, no murmurs, no rub, no gallops, no clicks and no JVD Cardio Narrative: Mildly tachycardic Rate: tachycardic GI normal to inspection, nondistended, normoactive bowel sounds, soft to palpation, non-tender and non-distended; Negative for hepatosplenomegaly Extremity no clubbing, cyanosis or edema Skin no rashes or lesions noted, no wounds, skin turgor normal, no jaundice, no petechiae and no mottling Skin Narrative: Pale Neuro oriented x3, moves all extremities, no focal motor deficits and no sensory deficits noted Neuro Narrative: Moves all extremities but extreme weakness noted, no specific focal deficits noted at this time, bilateral mild ptosis noted on exam Sensorium / Orientation: awake and alert Speech: speech normal Psych affect normal Psych Narrative: Patient is currently frustrated secondary to the fact that she has COVID-19, affect is normal Appearance: appropriate Assessment & Plan Assessment/Plan (1) Sepsis: (2) Acute cystitis: (3) Complicated urinary tract infection: (4) Lactic acidosis: (5) Debility: (6) Acute respiratory failure with hypoxia: (7) COVID-19: PLAN: Acute hypoxic respiratory failure secondary to COVID-19 pneumonia -Patient was fully vaccinated and boosted however she is immunosuppressed secondary to her treatment for her multiple sclerosis -We will make n.p.o. except for p.o. meds for now while on continuous BiPAP -Wean oxygen as able -We will need isolation from 21 days status post symptom onset which is somewhat vague however we will go ahead and make it from 09/16/2021 -Patient was transferred to the intensive care unit as she is high risk for decompensation -Continue incentive spirometry and Pep therapy -Remdesivir day 2 of 5 -Decadron day 2 of 10 -Strep pneumo and Legionella antigens are negative -Sputum culture shows no growth -Respiratory panel is negative -Check CRP assess if patient would be a candidate for baricitinib however this may be deferred secondary to immunosuppression and risk for bacterial infection -Continue Mucinex added -No further Lasix today as she appears to have developed some contraction -She did diurese well being -1790 cc yesterday but remains +2.2 L for the stay -Continue broad-spectrum antibiotics -We will obtain a sputum culture if able -Consult pulmonary/critical care medicine--> Case was discussed with the plastic tubing insulation supervisor earlier today Sepsis secondary to suspected complicated E. coli urinary tract infection/COVID- 19 -Sepsis criteria met with fever and tachycardia and suspected source with UTI/COVID-19 -Patient remains tachycardic however fevers have resolved -Blood cultures are negative at 48 hours -Urine culture shows pansensitive E. coli that is ESBL negative -Discontinue meropenem and narrowed to ceftriaxone as the organism in her urine appears to be pansensitive -Sputum culture is negative -Ultrasound did confirm some urinary retention and therefore patient will need follow-up with urology after discharge -refer to urology with Dr. Cox for urodynamic studies with the patient having frequent infections I do have concern that there may be some neurogenic component with her multiple sclerosis ? Dysphagia -Patient with wet moist cough -We will have patient evaluated by speech therapy as I do have concerns that she may have some aspiration -Therapy recommended supervise meals with regular textures and thin liquids having meats cut bite-size and oral care following meals with head of bed at 90 degrees during meal intake -P.o. diet was reinitiated today and precautions reviewed with nursing this morning -Continue speech therapy Hypertension -Continue scheduled IV labetalol every 6 hours -If patient continues to do well today consider reinitiating home atenolol tomor row and discontinuing IV labetalol -As needed medications available Debility/generalized weakness -Patient with MS at baseline however I suspect her acute weakness is related to a pseudoflare of her MS in the setting of infection -PT/OT following -Patient very adamant on going home at discharge at the present time however I do not know that this is going to be realistic and I suspect she will need some placement at discharge Multiple sclerosis -Patient follows in [place] with neurology -On Ocrevus every 6 months -As noted above suspect current weakness is a pseudoflare -If weakness does not improve with improvement in infection will consider MRI of the brain DVT prophylaxis -Continue Lovenox CODE STATUS -Full code Charges/Coding Visit Charges Inpatient E&M: 02617 Subs Hosp L2
[2021-09-19 17:10] LABS: Bedside Glucose 153 mg/dL (74-106)
[2021-09-19] MEDS: 0.9% Saline Lock 10 ML Syringe IV ×2 (20:58→23:32)
[2021-09-19] MEDS: Acetaminophen 325 MG Tablet 650 MG PO (21:08)
[2021-09-19 21:15] LABS: Bedside Glucose 241 mg/dL (74-106)
[2021-09-20] VITALS (25 sets, daily range): BP systolic 114–138; BP diastolic 51–72; PULSE 92–112; RESP 16–24; TEMP 36.4–36.8; O2SAT 8–97
[2021-09-20 03:31] LABS: Absolute Lymphocyte Count 0.65 X10^3/uL (0.83-4.51); Absolute Neutrophil Count 8.2 X10^3/uL (2.0-7.7); Hematocrit 41.7 % (37-47); Hemoglobin 13.3 g/dL (12.0-15.0); Lymphocyte # 0.65 X10^3/ul (0.83-4.51); Lymphocyte % 6.9 % (19-41); Mean Corp Hgb Conc 31.9 g/dL (32-36); Mean Corpuscular Hgb 28.1 pg (27.0-32.0); Mean Corpuscular Volume 88.2 fL (81-99); Mean Platelet Vol. 9.2 fl (6.2-12.0); Monocyte# 0.51 X10^3/uL; Monocyte% 5.4 % (0-10); NRBC Flagged by Analyzer 0 % (0-5); Neutrophil % 87.3 % (47-70); Platelet Count 336 K/mm3 (150-450); RBC Distribution Width CV 13.5 % (11.6-14.6); RBC Distribution Width SD 44.1 fl (35.1-43.9); Red Blood Count 4.73 M/mm3 (4.2-5.4); White Blood Count 9.4 K/mm3 (4.4-11.0)
[2021-09-20 03:47] LABS: ALB/GLOB Ratio 0.8 RATIO (0.9-2.4); AST(SGOT) 24 U/L (15-37); Alanine Aminotransfer ALT/SGPT 28 U/L (13-56); Albumin, Serum 2.5 g/dL (3.2-5.0); Alkaline Phosphatase 52 U/L (45-117); Anion Gap 7 (5-15); BUN 40 mg/dL (7-18); BUN/Creat Ratio 68.1 RATIO (10-20); Calcium,Total 8.6 mg/dL (8.5-10.1); Chloride 109 mmol/L (98-107); Creatinine, Serum 0.59 mg/dL (0.55-1.02); EST Glomerular Filtration Rate 110 mL/min (>60); Est Glom Filt Rate - Afr Amer 133 mL/min (>60); Estimated Creatinine Clearance 84.28 ml/min; Globulin 3.2 g/dL (2.2-4.2); Glucose 157 mg/dL (74-106); Potassium 3.4 mmol/L (3.5-5.1); Protein, Total 5.7 g/dL (6.4-8.2); Sodium Level 143 mmol/L (136-145)
[2021-09-20] MEDS: 0.9% Saline Lock 10 ML Syringe IV ×2 (06:16→18:16)
[2021-09-20] MEDS: Labetalol (Prefilled) 20 MG/4 ML IV ×4 (06:16→23:47)
--- NOTE | 2021-09-20 07:20 | PN.CC_ITS ---
Assessment & Plan Assessment/Plan (1) Acute respiratory failure with hypoxia: (2) COVID-19: (3) Sepsis: (4) Complicated urinary tract infection: (5) Debility: PLAN: RECOMMENDATIONS: 1. Wean supplemental oxygen to maintain saturations at or above 90%. 2. Continue Remdesivir (09/21/2021) and Decadron (09/28/2021). 3. Continue intermittent diuretic therapy as needed. 4. Continue aggressive bronchopulmonary hygiene. 5. Continue antibiotics for UTI to complete 7 days of therapy. 6. Encourage incentive spirometer use and mobilize patient as tolerated. IMPRESSIONS: 1. Acute hypoxic respiratory failure secondary to COVID-19 Slow clinical improvement noted. Continue supplemental oxygen to maintain saturations at or above 90%. The patient will be continued on remdesivir and Decadron to complete therapy. The patient ultimately refused baricitinib. Continue aggressive bronchopulmonary hygiene and mobilize patient as tolerated. Continue intermittent use of diuretics as needed. 2. Sepsis secondary to complicated E. coli UTI Continue antimicrobials as ordered to complete 7 days of therapy. 3. Debility/MS/multiple allergies Complicates care, management, recovery and prognosis. Physical therapy to work with the patient. This note was generated with [employer] dictation software. It may contain incorrect words, spelling, and punctuation that were not noted in checking the note before signing. Subjective Subjective The patient was seen and examined at the bedside this morning. Events from the last 24 hours have been reviewed. The patient is currently afebrile, hemodynamically stable and maintaining appropriate oxygen saturations on 6 L/min via nasal cannula. The patient is currently documented to be overall net +1.8 L for the hospitalization. She remains on remdesivir, Decadron, prophylactic Lovenox and antimicrobials. The patient does still continue to expectorate sputum. Objective Data Objective Data The patient's most recent lab work, culture data and imaging studies have all been personally reviewed. Rapid coronavirus antigen testing was positive on September 17. Respiratory viral panel was negative. Sputum culture has not demonstrated any growth to date. Vital Signs: Vital Signs Temp Pulse Resp BP Pulse Ox 97.9 F 102 H 24 H 124/63 H 91 09/20/21 00:00 09/20/21 07:00 09/20/21 07:00 09/20/21 07:00 09/20/21 07:17 Oxygen Flow Rate (L/min) 6 Oxygen Delivery Method Nasal Cannula Weight: 69.8 kg Body Mass Index (BMI) 25.7 Intake & Output: Intake and Output for Last 24 Hours 09/18/21 09/19/21 09/20/21 23:59 23:59 23:59 Intake Total 1010 / 1010 790 / 790 Output Total 2800 / 2800 1205 / 1205 Balance -1790 / -1790 -415 / -415 Lab / Micro Data Attestation: I reviewed the patient's lab results. Result Diagrams: 09/20/21 03:18 09/20/21 03:18 Labs: Laboratory Results - last 24 hr 09/19/21 11:37: POC Glucose 214 H 09/19/21 16:55: POC Glucose 153 H 09/19/21 20:55: POC Glucose 241 H 09/20/21 03:18: WBC 9.4, RBC 4.73, Hgb 13.3, Hct 41.7, MCV 88.2, MCH 28.1, MCHC 31.9 L, RDW Std Deviation 44.1 H, RDW Coeff of Hung 13.5, Plt Count 336, MPV 9.2, Immature Gran % (Auto) 0.400, Neut % (Auto) 87.3 H, Lymph % (Auto) 6.9 L, [place] % (Auto) 5.4, Eos % (Auto) 0.0, Baso % (Auto) 0.0, Absolute Neuts (auto) 8.2 H, Absolute Lymphs (auto) 0.65 L, Nucleated RBC % 0 09/20/21 03:18: Sodium 143, Potassium 3.4 L, Chloride 109 H, Carbon Dioxide 27.0, Anion Gap 7, BUN 40 H, Creatinine 0.59, Estim Creat Clear Calc 84.28, Est GFR (MDRD) Af Amer 133, Est GFR (MDRD) Non-Af 110, BUN/Creatinine Ratio 68.1 H, Glucose 157 H, Calcium 8.6, Total Bilirubin 0.30, AST 24, ALT 28, Alkaline Phosphatase 52, Total Protein 5.7 L, Albumin 2.5 L, Globulin 3.2, Albumin/Globulin Ratio 0.8 L Micro: Microbiology 09/18/21 19:20 Sputum, Expectorated/Coughed Gram Stain - Final 09/18/21 19:20 Sputum, Expectorated/Coughed Respiratory Culture - Preliminary Culture exhibits no growth. 09/18/21 09:05 Sputum, Expectorated/Coughed Gram Stain - Final 09/18/21 09:05 Sputum, Expectorated/Coughed Respiratory Culture - Preliminary Appears to be normal respiratory ibeth. Further studies to follow. 09/18/21 14:20 Urine, Clean Catch Legionella Antigen - Final 09/18/21 14:20 Urine, Clean Catch Streptococcus pneumoniae Antigen (M - Final 09/16/21 13:15 Blood Culture (Wb) - Anticubital Left Blood Culture - Preliminary No growth in 48 hours. 09/16/21 13:03 Blood Culture (Wb) - Anticubital Right Blood Culture - Preliminary No growth in 48 hours. 09/16/21 13:30 Urine Catheter - Catheter Urine Culture - Final Presumptive E. coli 09/17/21 23:25 Mucosa - Nasopharyngeal Respiratory Panel (PCR) - Final 09/17/21 23:25 Nasal Secretion SARS-CoV-2 Antigen (Rapid) - Final SARS-CoV-2 (COVID 19) 09/17/21 09:00 Urine, Clean Catch Legionella Antigen - Final 09/17/21 09:00 Urine, Clean Catch Streptococcus pneumoniae Antigen (M - Final Physical Exam Const alert and no apparent distress General Appearance: cooperative and frail HEENT normocephalic, head/scalp atraumatic and moist oral mucous membranes Eyes PERRL, EOMs intact bilaterally and conjunctivae normal Neck supple General: trachea midline Chest inspection of chest normal Resp Resp Narrative: Scant rhonchi. Cardio regular rate and regular rhythm GI normal to inspection, nondistended, normoactive bowel sounds Extremity no clubbing, cyanosis or edema Skin no rashes or lesions noted Neuro moves all extremities and no focal motor deficits Psych cooperative and affect normal Charges/Coding Visit Charges Inpatient E&M: 51748 Subs Hosp L3
[2021-09-20] MEDS: CHLORHEXIDINE GLUC 2% CLOTH 1 EACH TOWELETTE TOPICAL (08:20)
[2021-09-20] MEDS: Insulin Lispro 100 UNIT/ML INSULN.PEN SC ×3 (08:20→16:18)
[2021-09-20] MEDS: dexAMETHasone 10 MG/ML Vial 6 MG IV (08:20)
[2021-09-20] MEDS: Ceftriaxone 1 GM/50 ML BAG IV (08:21)
[2021-09-20] MEDS: guaiFENesin 1,200 MG Tablet 1200 MG PO ×2 (08:21→21:17)
[2021-09-20] MEDS: Enoxaparin 30 MG/0.3 ML Syringe SC ×2 (08:21→21:17)
[2021-09-20 08:45] LABS: Bedside Glucose 165 mg/dL (74-106)
--- NOTE | 2021-09-20 09:48 | PN.HOSP_ITS ---
Subjective Subjective Patient seen and examined. She said she's feeling better today. She says her breathing is getting better. She denies any fever, chills, nausea, vomiting or diarrhea. Review of systems is otherwise negative. She is now down to 6L of oxygen. She does remain mildly tachycardic. Objective Data Objective Data Vital Signs: Vital Signs Temp Pulse Resp BP Pulse Ox 97.5 F L 112 H 20 H 130/59 H 97 09/20/21 09:00 09/20/21 09:00 09/20/21 09:00 09/20/21 09:00 09/20/21 09:00 Oxygen Flow Rate (L/min) 6 Oxygen Delivery Method Nasal Cannula Weight: 153 lb 14.122 oz Body Mass Index (BMI) 25.7 Intake & Output: Intake and Output for Last 24 Hours 09/18/21 09/19/21 09/20/21 23:59 23:59 23:59 Intake Total 1010 / 1010 790 / 790 50 / 50 Output Total 2800 / 2800 1205 / 1205 Balance -1790 / -1790 -415 / -415 50 / 50 Lab / Micro Data Result Diagrams: 09/20/21 03:18 09/20/21 03:18 Labs: Laboratory Results - last 24 hr 09/19/21 11:37: POC Glucose 214 H 09/19/21 16:55: POC Glucose 153 H 09/19/21 20:55: POC Glucose 241 H 09/20/21 03:18: WBC 9.4, RBC 4.73, Hgb 13.3, Hct 41.7, MCV 88.2, MCH 28.1, MCHC 31.9 L, RDW Std Deviation 44.1 H, RDW Coeff of Hung 13.5, Plt Count 336, MPV 9.2, Immature Gran % (Auto) 0.400, Neut % (Auto) 87.3 H, Lymph % (Auto) 6.9 L, Andrews % (Auto) 5.4, Eos % (Auto) 0.0, Baso % (Auto) 0.0, Absolute Neuts (auto) 8.2 H, Absolute Lymphs (auto) 0.65 L, Nucleated RBC % 0 09/20/21 03:18: Sodium 143, Potassium 3.4 L, Chloride 109 H, Carbon Dioxide 27.0, Anion Gap 7, BUN 40 H, Creatinine 0.59, Estim Creat Clear Calc 84.28, Est GFR (MDRD) Af Amer 133, Est GFR (MDRD) Non-Af 110, BUN/Creatinine Ratio 68.1 H, Glucose 157 H, Calcium 8.6, Total Bilirubin 0.30, AST 24, ALT 28, Alkaline P hosphatase 52, Total Protein 5.7 L, Albumin 2.5 L, Globulin 3.2, Albumin/Globulin Ratio 0.8 L 09/20/21 08:19: POC Glucose 165 H Micro: Microbiology 09/18/21 19:20 Sputum, Expectorated/Coughed Gram Stain - Final 09/18/21 19:20 Sputum, Expectorated/Coughed Respiratory Culture - Preliminary Culture exhibits no growth. 09/18/21 09:05 Sputum, Expectorated/Coughed Gram Stain - Final 09/18/21 09:05 Sputum, Expectorated/Coughed Respiratory Culture - Preliminary Appears to be normal respiratory ibeth. Further studies to follow. 09/18/21 14:20 Urine, Clean Catch Legionella Antigen - Final 09/18/21 14:20 Urine, Clean Catch Streptococcus pneumoniae Antigen (M - Final 09/16/21 13:15 Blood Culture (Wb) - Anticubital Left Blood Culture - Preliminary No growth in 48 hours. 09/16/21 13:03 Blood Culture (Wb) - Anticubital Right Blood Culture - Preliminary No growth in 48 hours. 09/16/21 13:30 Urine Catheter - Catheter Urine Culture - Final Presumptive E. coli 09/17/21 23:25 Mucosa - Nasopharyngeal Respiratory Panel (PCR) - Final 09/17/21 23:25 Nasal Secretion SARS-CoV-2 Antigen (Rapid) - Final SARS-CoV-2 (COVID 19) 09/17/21 09:00 Urine, Clean Catch Legionella Antigen - Final 09/17/21 09:00 Urine, Clean Catch Streptococcus pneumoniae Antigen (M - Final Physical Exam Const alert, oriented x3 and no apparent distress Exam Limitations: no limitations HEENT head/scalp atraumatic and moist oral mucous membranes Head and Scalp: normocephalic Eyes PERRL, EOMs intact bilaterally and conjunctivae normal Neck no lymphadenopathy, supple and no JVD Resp Resp Narrative: Mildly diminished breath sounds bibasally, no wheezes or c rackles. On 6L of oxygen by nasal canula Cardio regular rate, regular rhythm, S1 normal heart sound, S2 normal heart sound and no murmurs GI normal to inspection, nondistended, normoactive bowel sounds, soft to palpation, non-tender and non-distended Extremity normal to inspection, full ROM and no clubbing, cyanosis or edema Peripheral Pulses: Yes pulses 2+ throughout Skin no rashes or lesions noted Neuro oriented x3, CN's II-XII intact bilaterally and moves all extremities Sensorium / Orientation: awake and alert Psych affect normal Assessment & Plan Assessment/Plan (1) Acute respiratory failure with hypoxia: (2) COVID-19: (3) Sepsis: (4) Complicated urinary tract infection: PLAN: #Acute hypoxic respiratory failure due to covid 19 pneumonia * has been vaccinated and boosted, but is immunosuppressed from treatment for MS * now on 6L of oxygen * critical care on board * on remdesivir; to complete a 5 day ccourse; to complete a 10 day course of decadron * urine for strep and legionella were negative and sputum culture was also negative. * critical care on board * titrate oxygen to maintain sats >90% * breathing treatment with bronchodilators * #Sepsis due to UTI * blood cultures are negative. * Urine culture showed pansensitive E coli * on IV ceftriaxone * did have some urinary retention on bladder scan. Will benefit from urology referral on outpatient basis. * #Hypokalemia: K is 3.4. Will replace and trend. #Dysphagia * improving. Speech therapy on board * on supervised meals with regular textures and thin liquids, per speech therapy * #Hypertension; on atenolol. #Multiple sclerosis * on Ocrevus q 6 monthly * will monitor * PT/OT on board to help with weakness * #Debility and general weakness * may be due to acute illness. There was a concern about a pseudo flare up of her MS in the setting of infection. * PT/OT on board. Fall precautions * DVT prophylaxis: lovenox Charges/Coding Visit Charges Inpatient E&M: 74840 Subs Hosp L2
[2021-09-20] MEDS: Atenolol 25 MG Tablet PO (12:58)
[2021-09-20 13:15] LABS: Bedside Glucose 265 mg/dL (74-106)
--- NOTE | 2021-09-20 14:31 | CASEMGMT ---
Patient will not be able to go to [facility] for rehab due to her positive COVID test. SW attempted to call patient's sister Sandi, but she was not available so SW left a message. SW will also talk with patient and discuss d/c plans. Nichelle Santos PERSONNEL AND PAYROLL TECHNICIAN ADRIÁN
--- NOTE | 2021-09-20 16:03 | CASEMGMT ---
SW met with patient. Introduced self and role at [facility]. SW told patient [facility] is not going to be able to take her now since she is positive for COVID. SW told patient the only local facility that is taking COVID patients and her insurance is [facility] in [place]. Patient was in agreement with this plan. SW left a message for patient's sister earlier today. SW will attempt to reach her again to let her know the change in plans. EUSEBIA faxed referral to [facility] [place]. Await response. Nichelle Santos [employer] ADRIÁN
[2021-09-20 16:25] LABS: Bedside Glucose 282 mg/dL (74-106)
[2021-09-20] MEDS: Acetaminophen 325 MG Tablet 650 MG PO (19:44)
[2021-09-20 22:56] LABS: Bedside Glucose 156 mg/dL (74-106)
[2021-09-21] VITALS (20 sets, daily range): BP systolic 119–151; BP diastolic 57–70; PULSE 90–101; RESP 17–28; TEMP 36.1–36.7; O2SAT 90–94
[2021-09-21] MEDS: Labetalol (Prefilled) 20 MG/4 ML IV (05:34)
[2021-09-21 06:31] LABS: Absolute Neutrophil Count 7.8 X10^3/uL (2.0-7.7); Basophil# 0.01 X10^3/uL; Basophil% 0.1 % (0-1); Hematocrit 40.8 % (37-47); Hemoglobin 12.7 g/dL (12.0-15.0); Lymphocyte % 6.5 % (19-41); Mean Corp Hgb Conc 31.1 g/dL (32-36); Mean Corpuscular Hgb 27.6 pg (27.0-32.0); Mean Corpuscular Volume 88.7 fL (81-99); Mean Platelet Vol. 9.4 fl (6.2-12.0); Monocyte# 0.74 X10^3/uL; NRBC Flagged by Analyzer 0 % (0-5); Neutrophil # 7.77 X10^3/uL (2.7-7.7); Neutrophil % 84.2 % (47-70); POSITIVE DIFFERENTIAL YES; Platelet Count 381 K/mm3 (150-450); RBC Distribution Width CV 13.7 % (11.6-14.6); RBC Distribution Width SD 44.3 fl (35.1-43.9); White Blood Count 9.2 K/mm3 (4.4-11.0)
[2021-09-21 06:33] LABS: Differential Indicated SCAN CRITERIA MET
[2021-09-21 06:55] LABS: Bedside Glucose 136 mg/dL (74-106)
[2021-09-21 06:58] LABS: Anion Gap 6 (5-15); BUN 33 mg/dL (7-18); BUN/Creat Ratio 64.1 RATIO (10-20); Calcium,Total 8.7 mg/dL (8.5-10.1); Chloride 112 mmol/L (98-107); Creatinine, Serum 0.52 mg/dL (0.55-1.02); EST Glomerular Filtration Rate 128 mL/min (>60); Est Glom Filt Rate - Afr Amer 155 mL/min (>60); Estimated Creatinine Clearance 95.62 ml/min; Glucose 132 mg/dL (74-106); Potassium 3.3 mmol/L (3.5-5.1); Sodium Level 144 mmol/L (136-145)
[2021-09-21 06:59] LABS: Differential Comment SCANNED
--- NOTE | 2021-09-21 07:04 | PN.CC_ITS ---
Assessment & Plan Assessment/Plan (1) Acute respiratory failure with hypoxia: (2) COVID-19: (3) Sepsis: (4) Complicated urinary tract infection: (5) Debility: PLAN: RECOMMENDATIONS: 1. Wean supplemental oxygen to maintain saturations at or above 90%. 2. Continue Remdesivir (09/21/2021) and Decadron (09/28/2021). 3. Continue intermittent diuretic therapy as needed. IV Lasix ordered for today. 4. Continue aggressive bronchopulmonary hygiene. 5. Continue antibiotics for UTI to complete 7 days of therapy. 6. Encourage incentive spirometer use and mobilize patient as tolerated. 7. Potassium repletion as ordered. IMPRESSIONS: 1. Acute hypoxic respiratory failure secondary to COVID-19 Slow clinical improvement noted. Continue supplemental oxygen to maintain saturations at or above 90%. The patient will be continued on remdesivir and Decadron to complete therapy. The patient ultimately refused baricitinib. Continue aggressive bronchopulmonary hygiene and mobilize patient as tolerated. Continue intermittent use of diuretics as needed. 2. Sepsis secondary to complicated E. coli UTI Continue antimicrobials as ordered to complete 7 days of therapy. 3. Hypokalemia Electrolyte repletion as ordered. Continue to monitor daily and replete as needed, especially in light of intermittent use of diuretics. 4. Debility/MS/multiple allergies Complicates care, management, recovery and prognosis. Physical therapy to work with the patient. This note was generated with [employer] dictation software. It may contain incorrect words, spelling, and punctuation that were not noted in checking the note before signing. Subjective Subjective The patient was seen and examined at the bedside this morning. Events from the last 24 hours have been reviewed. The patient is currently afebrile, hemodynamically stable and maintaining appropriate oxygen saturations on 15 L/mi n high flow nasal cannula. The patient is currently documented to be overall net +2.1 L for the hospitalization. She remains on remdesivir, Decadron, prophylactic Lovenox and antimicrobials. Potassium is low this morning at 3.3. Creatinine is within normal limits. Objective Data Objective Data The patient's most recent lab work, culture data and imaging studies have all been personally reviewed. Rapid coronavirus antigen testing was positive on September 17. Respiratory viral panel was negative. Sputum culture has not demonstrated any growth to date. Vital Signs: Vital Signs Temp Pulse Resp BP Pulse Ox 97.8 F 96 19 H 141/68 H 92 09/21/21 06:00 09/21/21 06:00 09/21/21 06:00 09/21/21 06:00 09/21/21 06:00 Oxygen Flow Rate (L/min) 15 Oxygen Delivery Method High Flow Weight: 68.3 kg Body Mass Index (BMI) 25.7 Intake & Output: Intake and Output for Last 24 Hours 09/19/21 09/20/21 09/21/21 23:59 23:59 23:59 Intake Total 790 / 790 760 / 1010 370 / 370 Output Total 1205 / 1205 400 / 600 450 / 450 Balance -415 / -415 360 / 410 -80 / -80 Lab / Micro Data Attestation: I reviewed the patient's lab results. Result Diagrams: 09/21/21 06:15 09/21/21 06:15 Labs: Laboratory Results - last 24 hr 09/20/21 08:19: POC Glucose 165 H 09/20/21 11:33: POC Glucose 265 H 09/20/21 16:16: POC Glucose 282 H 09/20/21 21:26: POC Glucose 156 H 09/21/21 06:15: WBC 9.2, RBC 4.60, Hgb 12.7, Hct 40.8, MCV 88.7, MCH 27.6, MCHC 31.1 L, RDW Std Deviation 44.3 H, RDW Coeff of Hung 13.7, Plt Count 381, MPV 9.4, Immature Gran % (Auto) 1.200 H, Neut % (Auto) 84.2 H, Lymph % (Auto) 6.5 L, Wilkes % (Auto) 8.0, Eos % (Auto) 0.0, Baso % (Auto) 0.1, Absolute Neuts (auto) 7.8 H, Absolute Lymphs (auto) 0.60 L, Nucleated RBC % 0, Differential Comment SCANNED 09/21/21 06:15: Sodium 144, Potassium 3.3 L, Chloride 112 H, Carbon Dioxide 26.0, Anion Gap 6, BUN 33 H, Creatinine 0.52 L, Estim Creat Clear Calc 95.62, Est GFR (MDRD) Af Amer 155, Est GFR (MDRD) Non-Af 128, BUN/Creatinine Ratio 64.1 H, Glucose 132 H, Calcium 8.7 09/21/21 06:50: POC Glucose 136 H Micro: Microbiology 09/18/21 09:05 Sputum, Expectorated/Coughed Gram Stain - Final 09/18/21 09:05 Sputum, Expectorated/Coughed Respiratory Culture - Final Mixed normal respiratory ibeth. No Streptococcus pneumoniae, beta-hemolytic Streptococcus or Staphylococcus aureus isolated. 09/18/21 19:20 Sputum, Expectorated/Coughed Gram Stain - Final 09/18/21 19:20 Sputum, Expectorated/Coughed Respiratory Culture - Preliminary 09/18/21 14:20 Urine, Clean Catch Legionella Antigen - Final 09/18/21 14:20 Urine, Clean Catch Streptococcus pneumoniae Antigen (M - Final 09/16/21 13:15 Blood Culture (Wb) - Anticubital Left Blood Culture - Preliminary No growth in 48 hours. 09/16/21 13:03 Blood Culture (Wb) - Anticubital Right Blood Culture - Preliminary No growth in 48 hours. 09/16/21 13:30 Urine Catheter - Catheter Urine Culture - Final Presumptive E. coli 09/17/21 23:25 Mucosa - Nasopharyngeal Respiratory Panel (PCR) - Final 09/17/21 23:25 Nasal Secretion SARS-CoV-2 Antigen (Rapid) - Final SARS-CoV-2 (COVID 19) 09/17/21 09:00 Urine, Clean Catch Legionella Antigen - Final 09/17/21 09:00 Urine, Clean Catch Streptococcus pneumoniae Antigen (M - Final Physical Exam Const alert and no apparent distress General Appearance: cooperative and frail HEENT normocephalic, head/scalp atraumatic and moist oral mucous membranes Eyes PERRL, EOMs intact bilaterally and conjunctivae normal Neck supple General: trachea midline Chest inspection of chest normal Resp Resp Narrative: Scant rhonchi. Effort and Inspection: tachypneic Auscultation: rales and diminished lung sounds Cardio regular rate and regular rhythm GI normal to inspection, nondistended, normoactive bowel sounds Extremity no clubbing, cyanosis or edema Skin no rashes or lesions noted Neuro moves all extremities and no focal motor deficits Psych cooperative and affect normal Charges/Coding Visit Charges Inpatient E&M: 35839 Subs Hosp L3
[2021-09-21] MEDS: 0.9% Saline Lock 10 ML Syringe IV ×2 (08:55→21:04)
[2021-09-21] MEDS: Enoxaparin 30 MG/0.3 ML Syringe SC ×2 (08:56→21:03)
[2021-09-21] MEDS: Furosemide 40 MG/4 ML Vial IV (08:56)
[2021-09-21] MEDS: Atenolol 25 MG Tablet PO (08:56)
[2021-09-21] MEDS: Ceftriaxone 1 GM/50 ML BAG IV (08:57)
--- NOTE | 2021-09-21 09:22 | CASEMGMT ---
EUSEBIA received an e-mail from [facility] at [facility] and they can accept patient. EUSEIBA let Poornima know that patient is requiring more oxygen now, so she is not ready for discharge. EUSEBIA received a return call from patient's sister, Sandi. EUSEBIA let her know [facility] will not be able to take patient since she is positive for COVID. EUSEBIA told [facility] the only facility in [facility] that takes positive COVID patients and that is [facility]. [facility] does take patient's insurance. EUSEBIA also let Sandi know that some of the local facilities will take patient's when they are 10 days out from their positive test. Therefore, if patient is here that long it is possible she could go to another facility. Sandi thanked for the update. Sandi will be up to [facility] to see patient tomorrow. Plan: d/c to [facility] once patient improves medically and insurance pre-cert is received. Nichelle Santos MSW ADRIÁN
--- NOTE | 2021-09-21 09:32 | CASEMGMT ---
EUSEBIA called patient's [employer] Cutter, Kyrstle Louis and left her a voice mail updating her on patient. Nichelle SAMPSON
[2021-09-21] MEDS: dexAMETHasone 10 MG/ML Vial 6 MG IV (10:04)
[2021-09-21] MEDS: Potassium Chloride 10mEq/100mL 10 MEQ/100 ML IV.SOLN. 100 MEQ IV BOLUS ×4 (10:04→14:19)
[2021-09-21] MEDS: guaiFENesin 1,200 MG Tablet 1200 MG PO ×2 (10:04→21:03)
--- NOTE | 2021-09-21 10:53 | PN.HOSP_ITS ---
Subjective Subjective Patient seen and examined. She says she felt her breathing was improving. However she was now on Airvo. She denied any coughing, chest pain, palpitations, dizziness, nausea vomiting or diarrhea. Review of systems otherwise negative. Objective Data Objective Data Vital Signs: Vital Signs Temp Pulse Resp BP Pulse Ox 97.5 F L 98 20 H 120/68 91 09/21/21 08:50 09/21/21 08:50 09/21/21 08:50 09/21/21 08:50 09/21/21 08:55 Oxygen Flow Rate (L/min) 55 Oxygen Delivery Method Airvo Weight: 150 lb 9.211 oz Body Mass Index (BMI) 25.7 Intake & Output: Intake and Output for Last 24 Hours 09/19/21 09/20/21 09/21/21 23:59 23:59 23:59 Intake Total 790 / 790 760 / 1010 420 / 420 Output Total 1205 / 1205 400 / 600 450 / 450 Balance -415 / -415 360 / 410 -30 / -30 Lab / Micro Data Result Diagrams: 09/21/21 06:15 09/21/21 06:15 Labs: Laboratory Results - last 24 hr 09/20/21 11:33: POC Glucose 265 H 09/20/21 16:16: POC Glucose 282 H 09/20/21 21:26: POC Glucose 156 H 09/21/21 06:15: WBC 9.2, RBC 4.60, Hgb 12.7, Hct 40.8, MCV 88.7, MCH 27.6, MCHC 31.1 L, RDW Std Deviation 44.3 H, RDW Coeff of Hung 13.7, Plt Count 381, MPV 9.4, Immature Gran % (Auto) 1.200 H, Neut % (Auto) 84.2 H, Lymph % (Auto) 6.5 L, Nance % (Auto) 8.0, Eos % (Auto) 0.0, Baso % (Auto) 0.1, Absolute Neuts (auto) 7.8 H, Absolute Lymphs (auto) 0.60 L, Nucleated RBC % 0, Differential Comment SCANNED 09/21/21 06:15: Sodium 144, Potassium 3.3 L, Chloride 112 H, Carbon Dioxide 26.0, Anion Gap 6, BUN 33 H, Creatinine 0.52 L, Estim Creat Clear Calc 95.62, Est GFR (MDRD) Af Amer 155, Est GFR (MDRD) Non-Af 128, BUN/Creatinine Ratio 64.1 H, Glucose 132 H, Calcium 8.7 09/21/21 06:50: POC Glucose 136 H Micro: Microbiology 09/18/21 19:20 Sputum, Expectorated/Coughed Gram Stain - Final 09/18/21 19:20 Sputum, Expectorated/Coughed Respiratory Culture - Final Coag Negative Staph Coag Negative Staph#2 09/18/21 09:05 Sputum, Expectorated/Coughed Gram Stain - Final 09/18/21 09:05 Sputum, Expectorated/Coughed Respiratory Culture - Final Mixed normal respiratory ibeth. No Streptococcus pneumoniae, beta-hemolytic Streptococcus or Staphylococcus aureus isolated. 09/18/21 14:20 Urine, Clean Catch Legionella Antigen - Final 09/18/21 14:20 Urine, Clean Catch Streptococcus pneumoniae Antigen (M - Final 09/16/21 13:15 Blood Culture (Wb) - Anticubital Left Blood Culture - Preliminary No growth in 48 hours. 09/16/21 13:03 Blood Culture (Wb) - Anticubital Right Blood Culture - Preliminary No growth in 48 hours. 09/16/21 13:30 Urine Catheter - Catheter Urine Culture - Final Presumptive E. coli 09/17/21 23:25 Mucosa - Nasopharyngeal Respiratory Panel (PCR) - Final 09/17/21 23:25 Nasal Secretion SARS-CoV-2 Antigen (Rapid) - Final SARS-CoV-2 (COVID 19) 09/17/21 09:00 Urine, Clean Catch Legionella Antigen - Final 09/17/21 09:00 Urine, Clean Catch Streptococcus pneumoniae Antigen (M - Final Physical Exam Const alert, oriented x3, no apparent distress and average body habitus General Appearance: cooperative Orientation / Consciousness: lethargic Exam Limitations: no limitations HEENT normocephalic, head/scalp atraumatic, moist oral mucous membranes and oropharynx normal Head and Scalp: normocephalic Eyes PERRL, EOMs intact bilaterally and conjunctivae normal Neck no lymphadenopathy, supple and no JVD Resp Resp Narrative: Mildly diminished breath sounds bibasally, few crackles, no wheezes. On Airvo. Auscultation: crackles and rhonchi; Negative for rales or wheezes Cardio regular rate, regular rhythm, S1 normal heart sound, S2 normal heart sound, no murmurs, no rub, no gallops, no clicks and no JVD Rate: tachycardic GI normal to inspection, nondistended, normoactive bowel sounds, soft to palpation, non-tender and non-distended; Negative for hepatosplenomegaly Extremity normal to inspection, full ROM and no clubbing, cyanosis or edema Peripheral Pulses: Yes pulses 2+ throughout Skin no rashes or lesions noted, no wounds, skin turgor normal, no jaundice, no petechiae and no mottling Skin Narrative: Pale Neuro oriented x3, CN's II-XII intact bilaterally, moves all extremities, no focal motor deficits and no sensory deficits noted Neuro Narrative: frail and weak Sensorium / Orientation: awake and alert Speech: speech normal Psych affect normal Appearance: appropriate Assessment & Plan Assessment/Plan (1) Acute respiratory failure with hypoxia: (2) COVID-19: (3) Sepsis: (4) Complicated urinary tract infection: PLAN: #Acute hypoxic respiratory failure due to covid 19 pneumonia * has been vaccinated and boosted, but is immunosuppressed from treatment for MS * now on AirVO. Patient remains quite weak and frail * critical care on board * on remdesivir; to complete a 5 day course; to complete a 10 day course of decadron * urine for strep and legionella were negative and sputum culture was also negative. * critical care on board * titrate oxygen to maintain sats >90% * breathing treatment with bronchodilators * being diuresed with IV lasix also * #Sepsis due to UTI * blood cultures are negative. * Urine culture showed pansensitive E coli * on IV ceftriaxone * did have some urinary retention on bladder scan. Will benefit from urology referral on outpatient basis. * #Hypokalemia: K is 3.3 today. Will replace and trend. #Dysphagia * improving. Speech therapy on board * on supervised meals with regular textures and thin liquids, per speech therapy * #Hypertension; on atenolol. #Multiple sclerosis * on Ocrevus q 6 monthly * will monitor * PT/OT on board to help with weakness * #Debility and general weakness * may be due to acute illness. There was a concern about a pseudo flare up of her MS in the setting of infection. * PT/OT on board. Fall precautions * DVT prophylaxis: lovenox Charges/Coding Visit Charges Inpatient E&M: 90415 Subs Hosp L3
[2021-09-21] MEDS: Insulin Lispro 100 UNIT/ML INSULN.PEN SC ×3 (11:09→21:53)
[2021-09-21 11:26] LABS: Bedside Glucose 219 mg/dL (74-106)
[2021-09-21] MEDS: Acetaminophen 325 MG Tablet 650 MG PO (14:26)
[2021-09-21 16:30] LABS: Bedside Glucose 217 mg/dL (74-106)
[2021-09-21 22:16] LABS: Bedside Glucose 321 mg/dL (74-106)
[2021-09-22] VITALS (15 sets, daily range): BP systolic 112–148; BP diastolic 56–91; PULSE 75–94; RESP 13–19; TEMP 36.4–36.7; O2SAT 92–99
[2021-09-22 06:02] LABS: Absolute Lymphocyte Count 0.75 X10^3/uL (0.83-4.51); Absolute Neutrophil Count 8.1 X10^3/uL (2.0-7.7); Basophil# 0.04 X10^3/uL; Basophil% 0.4 % (0-1); Hematocrit 41.6 % (37-47); Hemoglobin 13.1 g/dL (12.0-15.0); Lymphocyte # 0.75 X10^3/ul (0.83-4.51); Lymphocyte % 7.3 % (19-41); Mean Corp Hgb Conc 31.5 g/dL (32-36); Mean Corpuscular Hgb 27.5 pg (27.0-32.0); Mean Corpuscular Volume 87.2 fL (81-99); Mean Platelet Vol. 8.8 fl (6.2-12.0); Monocyte# 1.11 X10^3/uL; Monocyte% 10.8 % (0-10); NRBC Flagged by Analyzer 0 % (0-5); Neutrophil # 8.13 X10^3/uL (2.7-7.7); Neutrophil % 79.1 % (47-70); Platelet Count 434 K/mm3 (150-450); RBC Distribution Width CV 13.4 % (11.6-14.6); Red Blood Count 4.77 M/mm3 (4.2-5.4); White Blood Count 10.3 K/mm3 (4.4-11.0)
[2021-09-22 06:35] LABS: Anion Gap 7 (5-15); BUN 27 mg/dL (7-18); BUN/Creat Ratio 58.7 RATIO (10-20); Calcium,Total 8.3 mg/dL (8.5-10.1); Chloride 111 mmol/L (98-107); Creatinine, Serum 0.46 mg/dL (0.55-1.02); EST Glomerular Filtration Rate 146 mL/min (>60); Est Glom Filt Rate - Afr Amer 176 mL/min (>60); Glucose 132 mg/dL (74-106); Potassium 3.6 mmol/L (3.5-5.1); Sodium Level 144 mmol/L (136-145)
[2021-09-22 06:55] LABS: Bedside Glucose 138 mg/dL (74-106)
--- NOTE | 2021-09-22 07:47 | PN.CC_ITS ---
Assessment & Plan Assessment/Plan (1) Acute respiratory failure with hypoxia: (2) COVID-19: (3) Sepsis: (4) Complicated urinary tract infection: (5) Debility: PLAN: RECOMMENDATIONS: 1. Wean supplemental oxygen to maintain saturations at or above 90%. 2. Continue Decadron (09/28/2021). 3. Continue intermittent diuretic therapy as needed. 4. Continue aggressive bronchopulmonary hygiene. 5. Continue antibiotics for UTI to complete 7 days of therapy. 6. Encourage incentive spirometer use and mobilize patient as tolerated. IMPRESSIONS: 1. Acute hypoxic respiratory failure secondary to COVID-19 Slow clinical improvement noted. Continue supplemental oxygen to maintain saturations at or above 90%. The patient has completed a course of remdesivir and will remain on Decadron to complete 10 days of therapy. The patient hakeem cook refused baricitinib. Continue aggressive bronchopulmonary hygiene and mobilize patient as tolerated. Continue intermittent use of diuretics as needed. If the patient does not begin to improve from an oxygenation perspective, may need to consider CTA chest to rule out pulmonary embolism. 2. Sepsis secondary to complicated E. coli UTI Continue antimicrobials as ordered to complete 7 days of therapy. 3. Debility/MS/multiple allergies Complicates care, management, recovery and prognosis. Physical therapy to work with the patient. This note was generated with [employer] dictation software. It may contain incorrect words, spelling, and punctuation that were not noted in checking the note before signing. Subjective Subjective The patient was seen and examined at the bedside this morning. Events from the last 24 hours have been reviewed. The patient is currently afebrile, hemodynamically stable and maintaining appropriate oxygen saturations on Airvo heated high flow with an FiO2 requirement of 54% and flow rate of 60 L/min. The patient is documented to be overall net +2.9 L for the hospitalization. Creatinine is stable. Objective Data Objective Data The patient's most recent lab work, culture data and imaging studies have all been personally reviewed. Rapid coronavirus antigen testing was positive on September 17. Respiratory viral panel was negative. Sputum culture has not demonstrated any growth to date. Vital Signs: Vital Signs Temp Pulse Resp BP Pulse Ox 97.8 F 89 18 134/61 H 92 09/22/21 05:00 09/22/21 05:00 09/22/21 05:00 09/22/21 05:00 09/22/21 05:00 Oxygen Flow Rate (L/min) 60 Oxygen Delivery Method Airvo Weight: 68.5 kg Body Mass Index (BMI) 25.7 Intake & Output: Intake and Output for Last 24 Hours 09/20/21 09/21/21 09/22/21 23:59 23:59 23:59 Intake Total 760 / 1010 1790 / 1910 120 / 120 Output Total 400 / 600 925 / 1125 200 / 200 Balance 360 / 410 865 / 785 -80 / -80 Lab / Micro Data Attestation: I reviewed the patient's lab results. Result Diagrams: 09/22/21 05:50 09/22/21 05:50 Labs: Laboratory Results - last 24 hr 09/21/21 11:05: POC Glucose 219 H 09/21/21 16:18: POC Glucose 217 H 09/21/21 21:02: POC Glucose 321 H 09/22/21 05:50: WBC 10.3, RBC 4.77, Hgb 13.1, Hct 41.6, MCV 87.2, MCH 27.5, MCHC 31.5 L, RDW Std Deviation 43.0, RDW Coeff of Hung 13.4, Plt Count 434, MPV 8.8, Immature Gran % (Auto) 2.400 H, Neut % (Auto) 79.1 H, Lymph % (Auto) 7.3 L, [place] % (Auto) 10.8 H, Eos % (Auto) 0.0, Baso % (Auto) 0.4, Absolute Neuts (auto) 8.1 H, Absolute Lymphs (auto) 0.75 L, Nucleated RBC % 0 09/22/21 05:50: Sodium 144, Potassium 3.6, Chloride 111 H, Carbon Dioxide 26.0, Anion Gap 7, BUN 27 H, Creatinine 0.46 L, Estim Creat Clear Calc 108.10, Est GFR (MDRD) Af Amer 176, Est GFR (MDRD) Non-Af 146, BUN/Creatinine Ratio 58.7 H, Glucose 132 H, Calcium 8.3 L 09/22/21 06:47: POC Glucose 138 H Micro: Microbiology 09/16/21 13:15 Blood Culture (Wb) - Anticubital Left Blood Culture - Final No growth in 5 days. 09/16/21 13:03 Blood Culture (Wb) - Anticubital Right Blood Culture - Final No growth in 5 days. 09/18/21 19:20 Sputum, Expectorated/Coughed Gram Stain - Final 09/18/21 19:20 Sputum, Expectorated/Coughed Respiratory Culture - Final Coag Negative Staph Coag Negative Staph#2 09/18/21 09:05 Sputum, Expectorated/Coughed Gram Stain - Final 09/18/21 09:05 Sputum, Expectorated/Coughed Respiratory Culture - Final Mixed normal respiratory ibeth. No Streptococcus pneumoniae, beta-hemolytic Streptococcus or Staphylococcus aureus isolated. 09/18/21 14:20 Urine, Clean Catch Legionella Antigen - Final 09/18/21 14:20 Urine, Clean Catch Streptococcus pneumoniae Antigen (M - Final 09/16/21 13:30 Urine Catheter - Catheter Urine Culture - Final Presumptive E. coli 09/17/21 23:25 Mucosa - Nasopharyngeal Respiratory Panel (PCR) - Final 09/17/21 23:25 Nasal Secretion SARS-CoV-2 Antigen (Rapid) - Final SARS-CoV-2 (COVID 19) 09/17/21 09:00 Urine, Clean Catch Legionella Antigen - Final 09/17/21 09:00 Urine, Clean Catch Streptococcus pneumoniae Antigen (M - Final Physical Exam Const alert and no apparent distress General Appearance: cooperative and frail HEENT normocephalic, head/scalp atraumatic and moist oral mucous membranes Eyes PERRL, EOMs intact bilaterally and conjunctivae normal Neck supple General: trachea midline Chest inspection of chest normal Resp Auscultation: rales and diminished lung sounds Cardio regular rate and regular rhythm GI normal to inspection, nondistended, normoactive bowel sounds Extremity no clubbing, cyanosis or edema Skin no rashes or lesions noted Neuro moves all extremities and no focal motor deficits Psych cooperative and affect normal Charges/Coding Visit Charges Inpatient E&M: 89510 Subs Hosp L3
[2021-09-22] MEDS: Enoxaparin 30 MG/0.3 ML Syringe SC ×2 (09:42→21:24)
[2021-09-22] MEDS: guaiFENesin 1,200 MG Tablet 1200 MG PO ×2 (09:43→21:24)
[2021-09-22] MEDS: Acetaminophen 325 MG Tablet 650 MG PO ×2 (09:43→18:09)
[2021-09-22] MEDS: Atenolol 25 MG Tablet PO (09:44)
[2021-09-22] MEDS: Ceftriaxone 1 GM/50 ML BAG IV (09:44)
[2021-09-22] MEDS: dexAMETHasone 10 MG/ML Vial 6 MG IV (09:44)
[2021-09-22] MEDS: 0.9% Saline Lock 10 ML Syringe IV ×2 (09:45→18:01)
[2021-09-22] MEDS: Furosemide 40 MG/4 ML Vial IV ×2 (09:53→18:01)
--- NOTE | 2021-09-22 10:09 | PN.HOSP_ITS ---
Subjective Subjective Patient seen and examined. She denied any active complaints. She remains on AirVo. REview of systems is otherwise negative. She is in cumulative positive balance by 3.06L. Objective Data Objective Data Vital Signs: Vital Signs Temp Pulse Resp BP Pulse Ox 97.8 F 89 18 134/61 H 92 09/22/21 05:00 09/22/21 05:00 09/22/21 05:00 09/22/21 05:00 09/22/21 05:00 Oxygen Flow Rate (L/min) 60 Oxygen Delivery Method Airvo Weight: 151 lb 0.266 oz Body Mass Index (BMI) 25.7 Intake & Output: Intake and Output for Last 24 Hours 09/20/21 09/21/21 09/22/21 23:59 23:59 23:59 Intake Total 760 / 1010 1790 / 1910 420 / 420 Output Total 400 / 600 925 / 1125 400 / 400 Balance 360 / 410 865 / 785 Lab / Micro Data Result Diagrams: 09/22/21 05:50 09/22/21 05:50 Labs: Laboratory Results - last 24 hr 09/21/21 11:05: POC Glucose 219 H 09/21/21 16:18: POC Glucose 217 H 09/21/21 21:02: POC Glucose 321 H 09/22/21 05:50: WBC 10.3, RBC 4.77, Hgb 13.1, Hct 41.6, MCV 87.2, MCH 27.5, MCHC 31.5 L, RDW Std Deviation 43.0, RDW Coeff of Hung 13.4, Plt Count 434, MPV 8.8, Immature Gran % (Auto) 2.400 H, Neut % (Auto) 79.1 H, Lymph % (Auto) 7.3 L, [place] % (Auto) 10.8 H, Eos % (Auto) 0.0, Baso % (Auto) 0.4, Absolute Neuts (auto) 8.1 H, Absolute Lymphs (auto) 0.75 L, Nucleated RBC % 0 09/22/21 05:50: Sodium 144, Potassium 3.6, Chloride 111 H, Carbon Dioxide 26.0, Anion Gap 7, BUN 27 H, Creatinine 0.46 L, Estim Creat Clear Calc 108.10, Est GFR (MDRD) Af Amer 176, Est GFR (MDRD) Non-Af 146, BUN/Creatinine Ratio 58.7 H, Glucose 132 H, Calcium 8.3 L 09/22/21 06:47: POC Glucose 138 H Micro: Microbiology 09/16/21 13:15 Blood Culture (Wb) - Anticubital Left Blood Culture - Final No growth in 5 days. 09/16/21 13:03 Blood Culture (Wb) - Anticubital Right Blood Culture - Final No growth in 5 days. 09/18/21 19:20 Sputum, Expectorated/Coughed Gram Stain - Final 09/18/21 19:20 Sputum, Expectorated/Coughed Respiratory Culture - Final Coag Negative Staph Coag Negative Staph#2 09/18/21 09:05 Sputum, Expectorated/Coughed Gram Stain - Final 09/18/21 09:05 Sputum, Expectorated/Coughed Respiratory Culture - Final Mixed normal respiratory ibeth. No Streptococcus pneumoniae, beta-hemolytic Streptococcus or Staphylococcus aureus isolated. 09/18/21 14:20 Urine, Clean Catch Legionella Antigen - Final 09/18/21 14:20 Urine, Clean Catch Streptococcus pneumoniae Antigen (M - Final 09/16/21 13:30 Urine Catheter - Catheter Urine Culture - Final Presumptive E. coli 09/17/21 23:25 Mucosa - Nasopharyngeal Respiratory Panel (PCR) - Final 09/17/21 23:25 Nasal Secretion SARS-CoV-2 Antigen (Rapid) - Final SARS-CoV-2 (COVID 19) 09/17/21 09:00 Urine, Clean Catch Legionella Antigen - Final 09/17/21 09:00 Urine, Clean Catch Streptococcus pneumoniae Antigen (M - Final Physical Exam Const alert, oriented x3, no apparent distress and average body habitus General Appearance: cooperative Orientation / Consciousness: lethargic Exam Limitations: no limitations HEENT normocephalic, head/scalp atraumatic, moist oral mucous membranes and oropharynx normal Head and Scalp: normocephalic Eyes PERRL, EOMs intact bilaterally and conjunctivae normal Neck no lymphadenopathy, supple and no JVD Resp no retractions and no use of accessory muscles Resp Narrative: Mildly diminished breath sounds bibasally, few crackles, no wheezes. Remains on Airvo. Auscultation: crackles and rhonchi; Negative for rales or wheezes Cardio regular rate, regular rhythm, S1 normal heart sound, S2 normal heart sound, no murmurs, no rub, no gallops, no clicks and no JVD Cardio Narrative: Mildly tachycardic Rate: tachycardic GI normal to inspection, nondistended, normoactive bowel sounds, soft to palpation, non-tender and non-distended; Negative for hepatosplenomegaly Extremity normal to inspection, full ROM and no clubbing, cyanosis or edema Peripheral Pulses: Yes pulses 2+ throughout Skin no rashes or lesions noted, no wounds, skin turgor normal, no jaundice, no petec hiae and no mottling Neuro oriented x3, CN's II-XII intact bilaterally, moves all extremities, no focal motor deficits and no sensory deficits noted Neuro Narrative: frail and weak Sensorium / Orientation: awake and alert Speech: speech normal Psych affect normal Appearance: appropriate Assessment & Plan Assessment/Plan (1) Acute respiratory failure with hypoxia: (2) COVID-19: (3) Sepsis: (4) Complicated urinary tract infection: PLAN: #Acute hypoxic respiratory failure due to covid 19 pneumonia * has been vaccinated and boosted, but is immunosuppressed from treatment for MS * remains on AirVO. Patient remains quite weak and frail * critical care on board * on remdesivir; to complete a 5 day course; to complete a 10 day course of decadron * urine for strep and legionella were negative and sputum culture was also negative. * critical care on board * titrate oxygen to maintain sats >90% * breathing treatment with bronchodilators * being diuresed with IV lasix as well to help with fluid overload. * #Sepsis due to UTI * blood cultures are negative. * Urine culture showed pansensitive E coli * on IV ceftriaxone * did have some urinary retention on bladder scan. Will benefit from urology referral on outpatient basis. * #Hypokalemia: resolved. K is 3.6 today #Dysphagia * improving. Speech therapy on board * on supervised meals with regular textures and thin liquids, per speech therapy * #Hypertension; on atenolol. #Multiple sclerosis * on Ocrevus q 6 monthly * will monitor * PT/OT on board to help with weakness * #Debility and general weakness * may be due to acute illness. * PT/OT on board. Fall precautions * DVT prophylaxis: lovenox Charges/Coding Visit Charges Inpatient E&M: 94661 Subs Hosp L3
[2021-09-22 11:10] LABS: D-Dimer Quantitative (DVT/PE) 0.56 FEU/ug/m (0.27-0.49)
[2021-09-22] MEDS: Insulin Lispro 100 UNIT/ML INSULN.PEN SC ×3 (12:15→21:24)
[2021-09-22 12:25] LABS: Bedside Glucose 178 mg/dL (74-106)
[2021-09-22 18:30] LABS: Bedside Glucose 158 mg/dL (74-106)
[2021-09-22 21:45] LABS: Bedside Glucose 254 mg/dL (74-106)
[2021-09-23] VITALS (15 sets, daily range): BP systolic 123–143; BP diastolic 71–82; PULSE 75–99; RESP 16–22; TEMP 36.3–37.2; O2SAT 90–99
[2021-09-23 06:11] LABS: Hemoglobin 14.1 g/dL (12.0-15.0); Mean Corp Hgb Conc 30.7 g/dL (32-36); Mean Corpuscular Hgb 27.3 pg (27.0-32.0); Mean Corpuscular Volume 89.1 fL (81-99); POSITIVE COUNT YES; POSITIVE MORPHOLOGY YES; Platelet Count 518 K/mm3 (150-450); RBC Distribution Width CV 13.4 % (11.6-14.6); RBC Distribution Width SD 43.9 fl (35.1-43.9); Red Blood Count 5.16 M/mm3 (4.2-5.4); White Blood Count 10.8 K/mm3 (4.4-11.0)
[2021-09-23 06:17] LABS: Differential Indicated MANUAL DIFF
[2021-09-23 06:35] LABS: Anion Gap 8 (5-15); BUN 34 mg/dL (7-18); BUN/Creat Ratio 57.1 RATIO (10-20); Calcium,Total 8.7 mg/dL (8.5-10.1); Chloride 106 mmol/L (98-107); EST Glomerular Filtration Rate 108 mL/min (>60); Est Glom Filt Rate - Afr Amer 131 mL/min (>60); Estimated Creatinine Clearance 82.87 ml/min; Glucose 173 mg/dL (74-106); Potassium 3.2 mmol/L (3.5-5.1); Sodium Level 141 mmol/L (136-145)
[2021-09-23] MEDS: 0.9% Saline Lock 10 ML Syringe IV ×2 (06:39→09:08)
[2021-09-23 06:45] LABS: Lymphocyte 9 % (19-41); Metamyelocyte 5 % (0-1); Monocyte 5 % (0-10); Myelocyte 1 % (0-0); Neutrophil-Segmented 80 % (47-70); Nucleated Red Bld Cells,Manual 1 % (0-5); Total Cells Counted 100 (MANUAL DIFF)
[2021-09-23 06:46] LABS: Absolute Neutrophil Count 9.3 X10^3/uL (2.0-7.7); Neutrophil # 9.29 X10^3/uL (2.7-7.7)
[2021-09-23 06:47] LABS: Absolute Lymphocyte Count 0.97 X10^3/uL (0.83-4.51); Lymphocyte # 0.97 X10^3/ul (0.83-4.51)
[2021-09-23 06:50] LABS: Platelet Estimate MOD INC (ADEQ)
[2021-09-23 06:50] LABS: Bedside Glucose 140 mg/dL (74-106)
[2021-09-23 06:51] LABS: Red Cell Morphology NORM C+C NORMAL (NORM C&C)
--- NOTE | 2021-09-23 07:30 | PN.CC_ITS ---
Assessment & Plan Assessment/Plan (1) Acute respiratory failure with hypoxia: (2) COVID-19: (3) Sepsis: (4) Complicated urinary tract infection: (5) Debility: PLAN: RECOMMENDATIONS: 1. Wean supplemental oxygen to maintain saturations at or above 90%. 2. Continue Decadron (09/28/2021). 3. Continue intermittent diuretic therapy as needed. Lasix BID again today. 4. Continue aggressive bronchopulmonary hygiene. 5. Continue antibiotics for UTI to complete 7 days of therapy. 6. Encourage incentive spirometer use and mobilize patient as tolerated. IMPRESSIONS: 1. Acute hypoxic respiratory failure secondary to COVID-19 Slow clinical improvement noted. Continue supplemental oxygen to maintain saturations at or above 90%. The patient has completed a course of remdesivir and will remain on Decadron to complete 10 days of therapy. The patient ultimately refused baricitinib. Continue aggressive bronchopulmonary hygiene and mobilize patient as tolerated. Continue intermittent use of diuretics as needed. If the patient does not begin to improve from an oxygenation perspective, may need to consider CTA chest to rule out pulmonary embolism. 2. Sepsis secondary to complicated E. coli UTI Continue antimicrobials as ordered to complete 7 days of therapy. 3. Debility/MS/multiple allergies Complicates care, management, recovery and prognosis. Physical therapy to work with the patient. This note was generated with [employer] dictation software. It may contain incorrect words, spelling, and punctuation that were not noted in checking the note before signing. Subjective Subjective The patient was seen and examined at the bedside this morning. Events from the last 24 hours have been reviewed. The patient is currently afebrile, hemodynamically stable and maintaining appropriate oxygen saturations on Airvo heated high flow with an FiO2 requirement of 48%. Potassium is low this morning at 3.2. Creatinine is stable. The patient did receive IV Lasix twice yesterday. She remains on antimicrobials, Decadron and prophylactic Lovenox. Objective Data Objective Data The patient's most recent lab work, culture data and imaging studies have all been personally reviewed. Rapid coronavirus antigen testing was positive on September 17. Respiratory viral panel was negative. Sputum culture has not demonstrated any growth to date. Vital Signs: Vital Signs Temp Pulse Resp BP Pulse Ox 98.9 F 87 17 143/77 H 93 09/23/21 03:08 09/23/21 04:10 09/23/21 03:08 09/23/21 03:08 09/23/21 03:12 Oxygen Flow Rate (L/min) 60 Oxygen Delivery Method Airvo Weight: 66.8 kg Body Mass Index (BMI) 25.7 Intake & Output: Intake and Output for Last 24 Hours 09/21/21 09/22/21 09/23/21 23:59 23:59 23:59 Intake Total 1790 / 1910 1310 / 1360 150 / 150 Output Total 925 / 1125 1000 / 1250 300 / 300 Balance 865 / 785 310 / 110 -150 / -150 Lab / Micro Data Attestation: I reviewed the patient's lab results. Result Diagrams: 09/23/21 05:45 09/23/21 05:45 Labs: Laboratory Results - last 24 hr 09/22/21 10:40: D-Dimer Quant (PE/DVT) 0.56 H* 09/22/21 12:13: POC Glucose 178 H 09/22/21 17:43: POC Glucose 158 H 09/22/21 21:23: POC Glucose 254 H 09/23/21 05:45: WBC 10.8, RBC 5.16, Hgb 14.1, Hct 46.0, MCV 89.1, MCH 27.3, MCHC 30.7 L, RDW Std Deviation 43.9, RDW Coeff of Hung 13.4, Plt Count 518 H, MPV 9.0, Neut % (Auto) Not Reportable, Absolute Neuts (auto) 9.3 H, Absolute Lymphs (au to) 0.97, Total Counted 100, Neutrophils % (Manual) 80 H, Lymphocytes % (Manual) 9 L, Monocytes % (Manual) 5, Metamyelocytes % 5 H, Myelocytes % 1 H, Nucleated RBCs/100 WBC 1, Diff Path Review May foll, Platelet Estimate MOD INC, RBC Morphology NORM C+C 09/23/21 05:45: Sodium 141, Potassium 3.2 L, Chloride 106, Carbon Dioxide 27.0, Anion Gap 8, BUN 34 H, Creatinine 0.60, Estim Creat Clear Calc 82.87, Est GFR (MDRD) Af Amer 131, Est GFR (MDRD) Non-Af 108, BUN/Creatinine Ratio 57.1 H, Glucose 173 H, Calcium 8.7 09/23/21 06:32: POC Glucose 140 H Micro: Microbiology 09/16/21 13:15 Blood Culture (Wb) - Anticubital Left Blood Culture - Final No growth in 5 days. 09/16/21 13:03 Blood Culture (Wb) - Anticubital Right Blood Culture - Final No growth in 5 days. 09/18/21 19:20 Sputum, Expectorated/Coughed Gram Stain - Final 09/18/21 19:20 Sputum, Expectorated/Coughed Respiratory Culture - Final Coag Negative Staph Coag Negative Staph#2 09/18/21 09:05 Sputum, Expectorated/Coughed Gram Stain - Final 09/18/21 09:05 Sputum, Expectorated/Coughed Respiratory Culture - Final Mixed normal respiratory ibeth. No Streptococcus pneumoniae, beta-hemolytic Streptococcus or Staphylococcus aureus isolated. 09/18/21 14:20 Urine, Clean Catch Legionella Antigen - Final 09/18/21 14:20 Urine, Clean Catch Streptococcus pneumoniae Antigen (M - Final 09/16/21 13:30 Urine Catheter - Catheter Urine Culture - Final Presumptive E. coli 09/17/21 23:25 Mucosa - Nasopharyngeal Respiratory Panel (PCR) - Final 09/17/21 23:25 Nasal Secretion SARS-CoV-2 Antigen (Rapid) - Final SARS-CoV-2 (COVID 19) 09/17/21 09:00 Urine, Clean Catch Legionella Antigen - Final 09/17/21 09:00 Urine, Clean Catch Streptococcus pneumoniae Antigen (M - Final Physical Exam Const alert and no apparent distress General Appearance: cooperative and frail HEENT normocephalic, head/scalp atraumatic and moist oral mucous membranes Eyes PERRL, EOMs intact bilaterally and conjunctivae normal Neck supple General: trachea midline Chest inspection of chest normal Resp Auscultation: diminished lung sounds Cardio regular rate and regular rhythm GI normal to inspection, nondistended, normoactive bowel sounds Extremity no clubbing, cyanosis or edema Skin no rashes or lesions noted Neuro moves all extremities and no focal motor deficits Psych cooperative and affect normal Charges/Coding Visit Charges Inpatient E&M: 99985 Subs Hosp L2
[2021-09-23] MEDS: Ceftriaxone 1 GM/50 ML BAG IV (09:06)
[2021-09-23] MEDS: dexAMETHasone 10 MG/ML Vial 6 MG IV (09:06)
[2021-09-23] MEDS: Furosemide 40 MG/4 ML Vial IV ×2 (09:07→16:29)
[2021-09-23] MEDS: Enoxaparin 30 MG/0.3 ML Syringe SC ×2 (09:07→21:25)
[2021-09-23] MEDS: guaiFENesin 1,200 MG Tablet 1200 MG PO ×2 (09:07→21:25)
[2021-09-23] MEDS: Atenolol 25 MG Tablet PO (09:07)
[2021-09-23] MEDS: Potassium Chloride Oral Tablet 20 MEQ 40 MEQ PO (09:19)
--- NOTE | 2021-09-23 10:39 | PN.HOSP_ITS ---
Subjective Subjective Patient seen and examined. She had no active complaints. She did have a cough which sounded very moist. She denied any problems with swallowing. Speech therapy was by her bedside working with her. She remains on BIPAP. Review of systems is otherwise negative. Objective Data Objective Data Vital Signs: Vital Signs Temp Pulse Resp BP Pulse Ox 98.6 F 94 18 142/76 H 90 09/23/21 08:56 09/23/21 08:56 09/23/21 08:56 09/23/21 08:56 09/23/21 08:56 Oxygen Flow Rate (L/min) 40 Oxygen Delivery Method Airvo Weight: 147 lb 4.301 oz Body Mass Index (BMI) 25.7 Intake & Output: Intake and Output for Last 24 Hours 09/21/21 09/22/21 09/23/21 23:59 23:59 23:59 Intake Total 1790 / 1910 1310 / 1360 150 / 150 Output Total 925 / 1125 1000 / 1250 300 / 300 Balance 865 / 785 310 / 110 -150 / -150 Lab / Micro Data Result Diagrams: 09/23/21 05:45 09/23/21 05:45 Labs: Laboratory Results - last 24 hr 09/22/21 10:40: D-Dimer Quant (PE/DVT) 0.56 H* 09/22/21 12:13: POC Glucose 178 H 09/22/21 17:43: POC Glucose 158 H 09/22/21 21:23: POC Glucose 254 H 09/23/21 05:45: WBC 10.8, RBC 5.16, Hgb 14.1, Hct 46.0, MCV 89.1, MCH 27.3, MCHC 30.7 L, RDW Std Deviation 43.9, RDW Coeff of Hung 13.4, Plt Count 518 H, MPV 9.0, Neut % (Auto) Not Reportable, Absolute Neuts (auto) 9.3 H, Absolute Lymphs (auto) 0.97, Total Counted 100, Neutrophils % (Manual) 80 H, Lymphocytes % (Manual) 9 L, Monocytes % (Manual) 5, Metamyelocytes % 5 H, Myelocytes % 1 H, Nucleated RBCs/100 WBC 1, Diff Path Review May , Platelet Estimate MOD INC, RBC Morphology NORM C+C 09/23/21 05:45: Sodium 141, Potassium 3.2 L, Chloride 106, Carbon Dioxide 27.0, Anion Gap 8, BUN 34 H, Creatinine 0.60, Estim Creat Clear Calc 82.87, Est GFR (MDRD) Af Amer 131, Est GFR (MDRD) Non-Af 108, BUN/Creatinine Ratio 57.1 H, Glucose 173 H, Calcium 8.7 09/23/21 06:32: POC Glucose 140 H Micro: Microbiology 09/16/21 13:15 Blood Culture (Wb) - Anticubital Left Blood Culture - Final No growth in 5 days. 09/16/21 13:03 Blood Culture (Wb) - Anticubital Right Blood Culture - Final No growth in 5 days. 09/18/21 19:20 Sputum, Expectorated/Coughed Gram Stain - Final 09/18/21 19:20 Sputum, Expectorated/Coughed Respiratory Culture - Final Coag Negative Staph Coag Negative Staph#2 09/18/21 09:05 Sputum, Expectorated/Coughed Gram Stain - Final 09/18/21 09:05 Sputum, Expectorated/Coughed Respiratory Culture - Final Mixed normal respiratory ibeth. No Streptococcus pneumoniae, beta-hemolytic Streptococcus or Staphylococcus aureus isolated. 09/18/21 14:20 Urine, Clean Catch Legionella Antigen - Final 09/18/21 14:20 Urine, Clean Catch Streptococcus pneumoniae Antigen (M - Final 09/16/21 13:30 Urine Catheter - Catheter Urine Culture - Final Presumptive E. coli 09/17/21 23:25 Mucosa - Nasopharyngeal Respiratory Panel (PCR) - Final 09/17/21 23:25 Nasal Secretion SARS-CoV-2 Antigen (Rapid) - Final SARS-CoV-2 (COVID 19) 09/17/21 09:00 Urine, Clean Catch Legionella Antigen - Final 09/17/21 09:00 Urine, Clean Catch Streptococcus pneumoniae Antigen (M - Final Physical Exam Const alert, oriented x3, no apparent distress and average body habitus Constitutional Narrative: remains very weak and frail General Appearance: cooperative Exam Limitations: no limitations HEENT normocephalic, head/scalp atraumatic, moist oral mucous membranes and oropharynx normal Head and Scalp: normocephalic Eyes PERRL, EOMs intact bilaterally and conjunctivae normal Neck no lymphadenopathy, supple and no JVD Resp Resp Narrative: Mildly diminished breath sounds bibasally, few crackles, no wheezes. Remains on Airvo. Auscultation: crackles and rhonchi; Negative for rales or wheezes Cardio regular rate, regular rhythm, S1 normal heart sound, S2 normal heart sound, no murmurs, no rub, no gallops, no clicks and no JVD Rate: tachycardic GI normal to inspection, nondistended, normoactive bowel sounds, soft to palpation, non-tender and non-distended; Negative for hepatosplenomegaly Extremity normal to inspection, full ROM and no clubbing, cyanosis or edema Peripheral Pulses: Yes pulses 2+ throughout Skin no rashes or lesions noted, no wounds, skin turgor normal, no jaundice, no petechiae and no mottling Skin Narrative: Neuro oriented x3, CN's II-XII intact bilaterally, moves all extremities, no focal motor deficits and no sensory deficits noted Neuro Narrative: frail and weak Sensorium / Orientation: awake and alert Speech: speech normal Psych affect normal Appearance: appropriate Assessment & Plan Assessment/Plan (1) Acute respiratory failure with hypoxia: (2) COVID-19: (3) Sepsis: (4) Complicated urinary tract infection: PLAN: #Acute hypoxic respiratory failure due to covid 19 pneumonia * has been vaccinated and boosted, but is immunosuppressed from treatment for MS * still remains on AirVO. Patient remains quite weak and frail * critical care on board * completed a course of remdesivir.To complete a course of decadron 10mg daily * urine for strep and legionella were negative and sputum culture was also negative. * critical care on board * titrate oxygen to maintain sats >90% * breathing treatment with bronchodilators * being diuresed with IV lasix as well to help with fluid overload. * #Sepsis due to UTI * blood cultures are negative. * Urine culture showed pansensitive E coli * on IV ceftriaxone * did have some urinary retention on bladder scan. Will benefit from urology referral on outpatient basis. * #Hypokalemia: potassium is 3.2. Will replace and trend. #Dysphagia * improving. Speech therapy on board * on supervised meals with regular textures and thin liquids, per speech therapy * #Hypertension; on atenolol. #Multiple sclerosis * on Ocrevus q 6 monthly * will monitor * PT/OT on board to help with weakness * #Debility and general weakness * may be due to acute illness. * PT/OT on board. Fall precautions * DVT prophylaxis: lovenox Charges/Coding Visit Charges Inpatient E&M: 75764 Subs Hosp L2
[2021-09-23] MEDS: Insulin Lispro 100 UNIT/ML INSULN.PEN SC ×3 (11:18→21:26)
[2021-09-23 11:25] LABS: Bedside Glucose 213 mg/dL (74-106)
[2021-09-23 13:29] LABS: Pathologist Review Reviewed
[2021-09-23] MEDS: Acetaminophen 325 MG Tablet 650 MG PO (16:28)
[2021-09-23 16:46] LABS: Bedside Glucose 339 mg/dL (74-106)
--- NOTE | 2021-09-23 18:43 | NURSING ---
Reviewed charting with Sergio Moser RN
[2021-09-23 21:40] LABS: Bedside Glucose 278 mg/dL (74-106)
[2021-09-24] VITALS (18 sets, daily range): BP systolic 121–127; BP diastolic 69–82; PULSE 81–140; RESP 18–20; TEMP 36.6–36.8; O2SAT 88–97
[2021-09-24 05:46] LABS: Hematocrit 48.9 % (37-47); Hemoglobin 15.2 g/dL (12.0-15.0); Mean Corp Hgb Conc 31.1 g/dL (32-36); Mean Corpuscular Hgb 27.5 pg (27.0-32.0); Mean Corpuscular Volume 88.4 fL (81-99); Mean Platelet Vol. 9.2 fl (6.2-12.0); POSITIVE COUNT YES; POSITIVE DIFFERENTIAL YES; POSITIVE MORPHOLOGY YES; Platelet Count 591 K/mm3 (150-450); RBC Distribution Width CV 13.3 % (11.6-14.6); RBC Distribution Width SD 43.6 fl (35.1-43.9); Red Blood Count 5.53 M/mm3 (4.2-5.4)
[2021-09-24 05:50] LABS: Differential Indicated MANUAL DIFF
[2021-09-24 06:19] LABS: Lymphocyte 8 % (19-41); Metamyelocyte 3 % (0-1); Monocyte 14 % (0-10); Neutrophil-Segmented 75 % (47-70); Total Cells Counted 100 (MANUAL DIFF)
[2021-09-24] MEDS: Insulin Lispro 100 UNIT/ML INSULN.PEN SC ×4 (06:19→21:00)
[2021-09-24 06:20] LABS: Anion Gap 7 (5-15); BUN 37 mg/dL (7-18); BUN/Creat Ratio 62.5 RATIO (10-20); Calcium,Total 9.2 mg/dL (8.5-10.1); Chloride 104 mmol/L (98-107); Creatinine, Serum 0.59 mg/dL (0.55-1.02); EST Glomerular Filtration Rate 109 mL/min (>60); Est Glom Filt Rate - Afr Amer 132 mL/min (>60); Estimated Creatinine Clearance 84.28 ml/min; Glucose 155 mg/dL (74-106); Potassium 3.8 mmol/L (3.5-5.1); Sodium Level 138 mmol/L (136-145)
[2021-09-24 06:24] LABS: Platelet Estimate MKD INC (ADEQ); Red Cell Morphology NORM C+C NORMAL (NORM C&C)
[2021-09-24 06:31] LABS: Bedside Glucose 156 mg/dL (74-106)
--- NOTE | 2021-09-24 06:52 | PN.CC_ITS ---
Assessment & Plan Assessment/Plan (1) Acute respiratory failure with hypoxia: (2) COVID-19: (3) Sepsis: (4) Complicated urinary tract infection: (5) Debility: PLAN: RECOMMENDATIONS: 1. Wean supplemental oxygen to maintain saturations at or above 90%. 2. Continue Decadron (09/28/2021). 3. Continue intermittent diuretic therapy as needed. Re-dose lasix x 1 today. 4. Continue aggressive bronchopulmonary hygiene. 5. Continue antibiotics for UTI to complete 7 days of therapy. 6. Encourage incentive spirometer use and mobilize patient as tolerated. IMPRESSIONS: 1. Acute hypoxic respiratory failure secondary to COVID-19 Slow clinical improvement noted. Continue supplemental oxygen to maintain saturations at or above 90%. The patient has completed a course of remdesivir and will remain on Decadron to complete 10 days of therapy. The patient ultimately refused baricitinib. Continue aggressive bronchopulmonary hygiene and mobilize patient as tolerated. Continue intermittent use of diuretics as needed. Overall, however, the patient appears to be improving slowly from a hypoxemia standpoint. 2. Sepsis secondary to complicated E. coli UTI Continue antimicrobials as ordered to complete 7 days of therapy. 3. Debility/MS/multiple allergies Complicates care, management, recovery and prognosis. Physical therapy to work with the patient. This note was generated with [employer] dictation software. It may contain incorrect words, spelling, and punctuation that were not noted in checking the note before signing. Subjective Subjective The patient was seen and examined at the bedside this morning. Events from the last 24 hours have been reviewed. The patient is currently afebrile, hemody namically stable and maintaining appropriate oxygen saturations on 4 L/min via nasal cannula. The patient is currently documented to be overall net +2.5 L for the hospitalization. Objective Data Objective Data The patient's most recent lab work, culture data and imaging studies have all been personally reviewed. Rapid coronavirus antigen testing was positive on September 17. Respiratory viral panel was negative. Sputum culture has not demonstrated any growth to date. Vital Signs: Vital Signs Temp Pulse Resp BP Pulse Ox 97.8 F 87 19 H 125/79 H 97 09/24/21 03:30 09/24/21 03:30 09/24/21 03:30 09/24/21 03:30 09/24/21 03:30 Oxygen Flow Rate (L/min) 4 Oxygen Delivery Method Nasal Cannula Weight: 64.7 kg Body Mass Index (BMI) 25.7 Intake & Output: Intake and Output for Last 24 Hours 09/22/21 09/23/21 09/24/21 23:59 23:59 23:59 Intake Total 1310 / 1360 1100 / 1130 30 / 30 Output Total 1000 / 1250 1550 / 1550 350 / 350 Balance 310 / 110 -450 / -420 -320 / -320 Lab / Micro Data Attestation: I reviewed the patient's lab results. Result Diagrams: 09/24/21 05:07 09/24/21 05:07 Labs: Laboratory Results - last 24 hr 09/23/21 05:45: Diff Path Review Reviewed 09/23/21 11:16: POC Glucose 213 H 09/23/21 16:26: POC Glucose 339 H 09/23/21 21:23: POC Glucose 278 H 09/24/21 05:07: WBC 13.0 H, RBC 5.53 H, Hgb 15.2 H, Hct 48.9 H, MCV 88.4, MCH 27.5, MCHC 31.1 L, RDW Std Deviation 43.6, RDW Coeff of Hung 13.3, Plt Count 591 H, MPV 9.2, Neut % (Auto) Not Reportable, Total Counted 100, Neutrophils % (Manual) 75 H, Lymphocytes % (Manual) 8 L, Monocytes % (Manual) 14 H, Metamyelocytes % 3 H, Diff Path Review May foll, Platelet Estimate MKD INC, RBC Morphology NORM C+C 09/24/21 05:07: Sodium 138, Potassium 3.8, Chloride 104, Carbon Dioxide 27.0, Anion Gap 7, BUN 37 H, Creatinine 0.59, Estim Creat Clear Calc 84.28, Est GFR (MDRD) Af Amer 132, Est GFR (MDRD) Non-Af 109, BUN/Creatinine Ratio 62.5 H, Glucose 155 H, Calcium 9.2 09/24/21 06:18: POC Glucose 156 H Micro: Microbiology 09/16/21 13:15 Blood Culture (Wb) - Anticubital Left Blood Culture - Final No growth in 5 days. 09/16/21 13:03 Blood Culture (Wb) - Anticubital Right Blood Culture - Final No growth in 5 days. 09/18/21 19:20 Sputum, Expectorated/Coughed Gram Stain - Final 09/18/21 19:20 Sputum, Expectorated/Coughed Respiratory Culture - Final Coag Negative Staph Coag Negative Staph#2 09/18/21 09:05 Sputum, Expectorated/Coughed Gram Stain - Final 09/18/21 09:05 Sputum, Expectorated/Coughed Respiratory Culture - Final Mixed normal respiratory ibeth. No Streptococcus pneumoniae, beta-hemolytic Streptococcus or Staphylococcus aureus isolated. 09/18/21 14:20 Urine, Clean Catch Legionella Antigen - Final 09/18/21 14:20 Urine, Clean Catch Streptococcus pneumoniae Antigen (M - Final 09/16/21 13:30 Urine Catheter - Catheter Urine Culture - Final Presumptive E. coli 09/17/21 23:25 Mucosa - Nasopharyngeal Respiratory Panel (PCR) - Final 09/17/21 23:25 Nasal Secretion SARS-CoV-2 Antigen (Rapid) - Final SARS-CoV-2 (COVID 19) 09/17/21 09:00 Urine, Clean Catch Legionella Antigen - Final 09/17/21 09:00 Urine, Clean Catch Streptococcus pneumoniae Antigen (M - Catia l Physical Exam Const alert and no apparent distress General Appearance: cooperative and frail HEENT normocephalic, head/scalp atraumatic and moist oral mucous membranes Eyes PERRL, EOMs intact bilaterally and conjunctivae normal Neck supple General: trachea midline Chest inspection of chest normal Resp Auscultation: diminished lung sounds Cardio regular rate and regular rhythm GI normal to inspection, nondistended, normoactive bowel sounds Extremity no clubbing, cyanosis or edema Skin no rashes or lesions noted Neuro moves all extremities and no focal motor deficits Psych cooperative and affect normal Charges/Coding Visit Charges Inpatient E&M: 00519 Subs Hosp L2
[2021-09-24 07:26] LABS: Absolute Lymphocyte Count 1.04 X10^3/uL (0.83-4.51); Absolute Neutrophil Count 10.2 X10^3/uL (2.0-7.7); Lymphocyte # 1.04 X10^3/ul (0.83-4.51); Neutrophil # 10.17 X10^3/uL (2.7-7.7)
--- NOTE | 2021-09-24 09:58 | CASEMGMT ---
Social Work VM left with Poornima at [place] and requested precert be started as pt may be ready over the weekend. Updated clinicals faxed. Plan: [facility] SNF, pending insurance KAILEE Valdovinos
[2021-09-24] MEDS: dexAMETHasone 10 MG/ML Vial 6 MG IV (10:26)
[2021-09-24] MEDS: Atenolol 25 MG Tablet PO (10:29)
[2021-09-24] MEDS: guaiFENesin 1,200 MG Tablet 1200 MG PO ×2 (10:29→21:01)
[2021-09-24] MEDS: Enoxaparin 30 MG/0.3 ML Syringe SC ×2 (10:35→21:00)
[2021-09-24] MEDS: Furosemide 40 MG/4 ML Vial IV (10:35)
[2021-09-24] MEDS: Ceftriaxone 1 GM/50 ML BAG IV (10:43)
[2021-09-24 10:56] LABS: Bedside Glucose 230 mg/dL (74-106)
--- NOTE | 2021-09-24 11:15 | PN.HOSP_ITS ---
Subjective Subjective Patient seen and examined. She had no active complaints today. She was had been weaned off AirVo and is now on 4L of oxygen. She is feeling much better, and review of systems is otherwise negative. Objective Data Objective Data Vital Signs: Vital Signs Temp Pulse Resp BP Pulse Ox 98.0 F 103 H 18 123/82 H 95 09/24/21 10:07 09/24/21 10:07 09/24/21 10:07 09/24/21 10:07 09/24/21 10:51 Oxygen Flow Rate (L/min) 3 Oxygen Delivery Method Room Air Weight: 142 lb 10.225 oz Body Mass Index (BMI) 25.7 Intake & Output: Intake and Output for Last 24 Hours 09/22/21 09/23/21 09/24/21 23:59 23:59 23:59 Intake Total 1310 / 1360 1100 / 1130 30 / 30 Output Total 1000 / 1250 1550 / 1550 350 / 350 Balance 310 / 110 -450 / -420 -320 / -320 Lab / Micro Data Result Diagrams: 09/24/21 05:07 09/24/21 05:07 Labs: Laboratory Results - last 24 hr 09/23/21 05:45: Diff Path Review Reviewed 09/23/21 11:16: POC Glucose 213 H 09/23/21 16:26: POC Glucose 339 H 09/23/21 21:23: POC Glucose 278 H 09/24/21 05:07: WBC 13.0 H, RBC 5.53 H, Hgb 15.2 H, Hct 48.9 H, MCV 88.4, MCH 27.5, MCHC 31.1 L, RDW Std Deviation 43.6, RDW Coeff of Hung 13.3, Plt Count 591 H, MPV 9.2, Neut % (Auto) Not Reportable, Absolute Neuts (auto) 10.2 H, Absolute Lymphs (auto) 1.04, Total Counted 100, Neutrophils % (Manual) 75 H, Lymphocytes % (Manual) 8 L, Monocytes % (Manual) 14 H, Metamyelocytes % 3 H, Diff Path Review May , Platelet Estimate MKD INC, RBC Morphology NORM C+C 09/24/21 05:07: Sodium 138, Potassium 3.8, Chloride 104, Carbon Dioxide 27.0, Anion Gap 7, BUN 37 H, Creatinine 0.59, Estim Creat Clear Calc 84.28, Est GFR (MDRD) Af Amer 132, Est GFR (MDRD) Non-Af 109, BUN/Creatinine Ratio 62.5 H, Glucose 155 H, Calcium 9.2 09/24/21 06:18: POC Glucose 156 H 09/24/21 10:42: POC Glucose 230 H Micro: Microbiology 09/16/21 13:15 Blood Culture (Wb) - Anticubital Left Blood Culture - Final No growth in 5 days. 09/16/21 13:03 Blood Culture (Wb) - Anticubital Right Blood Culture - Final No growth in 5 days. 09/18/21 19:20 Sputum, Expectorated/Coughed Gram Stain - Final 09/18/21 19:20 Sputum, Expectorated/Coughed Respiratory Culture - Final Coag Negative Staph Coag Negative Staph#2 09/18/21 09:05 Sputum, Expectorated/Coughed Gram Stain - Final 09/18/21 09:05 Sputum, Expectorated/Coughed Respiratory Culture - Final Mixed normal respiratory ibeth. No Streptococcus pneumoniae, beta-hemolytic Streptococcus or Staphylococcus aureus isolated. 09/18/21 14:20 Urine, Clean Catch Legionella Antigen - Final 09/18/21 14:20 Urine, Clean Catch Streptococcus pneumoniae Antigen (M - Final 09/16/21 13:30 Urine Catheter - Catheter Urine Culture - Final Presumptive E. coli 09/17/21 23:25 Mucosa - Nasopharyngeal Respiratory Panel (PCR) - Final 09/17/21 23:25 Nasal Secretion SARS-CoV-2 Antigen (Rapid) - Final SARS-CoV-2 (COVID 19) 09/17/21 09:00 Urine, Clean Catch Legionella Antigen - Final 09/17/21 09:00 Urine, Clean Catch Streptococcus pneumoniae Antigen (M - F inal Physical Exam Const alert, oriented x3, no apparent distress and average body habitus Constitutional Narrative: remains very weak and frail General Appearance: cooperative Exam Limitations: no limitations HEENT normocephalic, head/scalp atraumatic, moist oral mucous membranes and oropharynx normal Head and Scalp: normocephalic Eyes PERRL, EOMs intact bilaterally and conjunctivae normal Neck no lymphadenopathy, supple and no JVD Resp Resp Narrative: Mildly diminished breath sounds bibasally, few crackles, no wheezes. On 4L of oxygen by nasal canula Auscultation: crackles and rhonchi; Negative for rales or wheezes Cardio regular rate, regular rhythm, S1 normal heart sound, S2 normal heart sound, no murmurs, no rub, no gallops, no clicks and no JVD Rate: tachycardic GI normal to inspection, nondistended, normoactive bowel sounds, soft to palpation, non-tender and non-distended; Negative for hepatosplenomegaly Extremity normal to inspection, full ROM and no clubbing, cyanosis or edema Peripheral Pulses: Yes pulses 2+ throughout Skin no rashes or lesions noted, no wounds, skin turgor normal, no jaundice, no petechiae and no mottling Skin Narrative: Neuro oriented x3, CN's II-XII intact bilaterally, moves all extremities, no focal motor deficits and no sensory deficits noted Neuro Narrative: frail and weak Sensorium / Orientation: awake and alert Speech: speech normal Psych affect normal Appearance: appropriate Assessment & Plan Assessment/Plan (1) Acute respiratory failure with hypoxia: (2) COVID-19: (3) Sepsis: (4) Complicated urinary tract infection: PLAN: #Acute hypoxic respiratory failure due to covid 19 pneumonia * has been vaccinated and boosted, but is immunosuppressed from treatment for MS * weaned off AirVo and is now on 4L of oxgen by nasal canula * completed a course of remdesivir.To complete a 10 day course of decadron 10mg daily * urine for strep and legionella were negative and sputum culture was also negative. * critical care on board * titrate oxygen to maintain sats >90% * breathing treatment with bronchodilators * being diuresed with IV lasix as well to help with fluid overload. * #Sepsis due to UTI * blood cultures are negative. * Urine culture showed pansensitive E coli * on IV ceftriaxone * did have some urinary retention on bladder scan. Will benefit from urology referral on outpatient basis. * #Hypokalemia:resolved #Dysphagia * improving. Speech therapy on board * on supervised meals with regular textures and thin liquids, per speech therapy * #Hypertension; on atenolol. #Multiple sclerosis * on Ocrevus q 6 monthly * will monitor * PT/OT on board to help with weakness * #Debility and general weakness * may be due to acute illness. * PT/OT on board. Fall precautions * DVT prophylaxis: lovenox Disposition: for placement in SNF once medically stable
[2021-09-24 13:58] LABS: Pathologist Review Reviewed
--- NOTE | 2021-09-24 14:00 | ST.MBS ---
Modified Barium Swallow - Patient Information Study Date: 09/24/21 Study Time: 14:00 Direct Billable Minutes: 100 Total Minutes procedure & reportin Diagnosis: Acute respiratory failure w/ hypoxia (J96.01), COVID-19 (U07.1) Referring Physician: Rina Diaz Reason for Referral: Objectively assess swallow function, risk for aspiration, and determine recommendations for least restrictive diet texture and compensatory strategies to improve safety of swallow. Medical History: Maria Esther Bowman is a 61 F who presented to [facility] ED 09/16/2021 with generalized weakness and fever ~3-4 days prior to admission. Her home health aide who comes to evaluate her felt that the patient had some slight confusion, as well as a fever, and she called EMS for transfer to the ER. During hospitalization, she has primarily been managed for COVID-19 and acute hypoxic respiratory failure. She was referred for speech consult to assess aspiration risk due to fever and wet cough. She was initially placed on Easy to Chew textures, meats cut bite size / Thin liquids with downgrade to Easy to Chew textures, meats cut bite size / Mildly thick liquids. APPLIED PSYCHOLOGY CHAIR recommended MBS study once the patient was able to wean from AIRVO to nasal cannula, which she did on this date, 09/24/2021. Medical History (Updated 09/16/21 @ 14:[address] Erick Jin MD) Hypertension Multiple sclerosis Current Diet Ordered: Easy to Chew, meat bite size / Mildly thick liquid Dentition: Natural Teeth Mental Status: WNL - Able to follow commands to complete evaluation Respiratory Status: Oxygenating on Room Air - Penetration-Aspiration Scale Penetration-Aspiration Scale: OBJECTIVE ASSESSMENT OF SWALLOW FUNCTION (QUANTITATIVE ? PER TRIAL): PENETRATION / ASPIRATION SCALE (HARMON): 1 = does not enter airway 2 = enters airway/above vocal folds/ejected 3 = enters airway/above vocal folds/not ejected 4 = enters airway/contacts vocal folds/ejected 5 = enters airway/contacts vocal folds/not ejected 6 = enters airway/below vocal folds/ejected 7 = enters airway/below vocal folds/not ejected despite effort 8 = enters airway/below vocal folds/no effort VIDEOFLOROSCOPIC SCALE SCORE (HARMON): Grade I = aspiration of material that has penetrated into the laryngeal vestibule, intact cough reflex Grade II = aspiration < 10 % of the bolus, intact cough reflex Grade III = aspiration of < 10 % of the bolus, reduced cough reflex or aspiration of > 10 % of the bolus, intact cough reflex Grade IV = aspiration of > 10 % of the bolus, reduced cough reflex - Penetration-Aspiration Scale Score Thin Liquid via teaspoon Result: 1= does not enter airway Thin Liquid via teaspoon Trial 2 Result: 1= does not enter airway Thin Liquid via small single sip from cup Result: 2= enter airway/above vocal folds/ejected Thin Liquid via sequential sips from cup Result: 2= enter airway/above vocal folds/ejected [place] Thick Liquid via small single sip from cup Result: 3= enters airways/above vocal folds/not ejected Honey Thick Liquid via small single sip from cup Result: 1= does not enter airway Pudding via tsp with esophageal screen Result: 1= does not enter airway Thin Liquid via single sip from straw Result: 2= enter airway/above vocal folds/ejected Thin Liquid via sequential sips from straw Result: 7= enters airways/below vocal folds/not ejected despite effort - Cough reflex was somewhat effective; however, trace contrast remained below the surface of the VF Thin Liquid via small single sip from cup Trial 2 Result: 1= does not enter airway Cookie Result: 1= does not enter airway - Oral Phase Labial Seal: Interlabial escape, no progression to anterior lip Tongue Control During Bolus Hold: Posterior escape of greater than half of bolus Bolus Preparation/Mastication: Disorganized chewing/mashing with solid pieces of bolus unchewed Bolus Transport/Lingual Motion: Slowed tongue motion Oral Residue: Residue collection on oral structures - Pharyngeal Phase Initiation of Pharyngeal Swallow: Bolus head at posterior laryngeal surgace of epiglottis - sequential thin by straw Soft Palate Elevation: Trace column of contrast/air between soft palate and pharyngeal wall Laryngeal Elevation: Partial superior movement thyroid cart/partial apprx aryt-epig petiole Anterior Hyoid Excursion: Partial anterior movement Epiglottic Movement: Complete inversion Pharyngeal Stripping Wave: Present - complete Pharyngoesophageal Segment Opening: Parital distension and partial duration; parital obstruction of flow Tongue Base Retraction: Narrow column of contrast between tongue base & post. pharyngeal wall Pharyngeal Residue: Collection of residue within or on pharyngeal structures - Esophageal Phase Esophageal Clearance: Esophageal retention w/ retrograde flow below pharyngoesophageal seg. - Treatment Strategies Effects of treatment strategies attemped:: Decreased bolus rate = Effective. Use of straw = Not effective. - Diagnosis/Impression Diagnosis: Mild-moderate oropharyngeal phase dysphagia (R13.12) Impression: The oral phase of the swallow is marked by mild deficits in bolus control, disorganized mastication, and mild oral residue after the swallow. The patient demonstrated premature posterior loss of majority of pudding bolus to the vallecula prior to swallow onset. The pharyngeal phase is marked by decreased airway closure during the swallow, mild pharyngeal residues after the swallow. She demonstrates decreased anterior hyoid excursion, tongue base retraction, and laryngeal elevation. The patient presented with laryngeal penetration of single sips of thin liquids above the VF with full ejection from the laryngeal vestibule. She had laryngeal penetration of a sip of nectar thick liquid via cup above the VF without full ejection from the laryngeal vestibule. The patient is at risk to aspirate residue remaining in the laryngeal vestibule after the swallow. She demonstrated aspiration of sequential sips of thin liquids via straw with cough reflex ejecting a majority of the aspirated contrast; however, trace contrast remained below the VF after coughing. She is at risk for aspiration of reflux with observed retention of pudding bolus in mid esophagus with retrograde flow below UES. - Recommendations Diet: Regular Textures - Easy to Chew Textures (IDDSI Level 7) with meats cut bite size, Thin Liquids Compensatory Strategies: Small Bites, Small Sips, No Straws, Slow Rate - Sips one at a time, Sitting upright, Remain sitting upright for 30 minutes after PO intake, Assist with verbal cues to use recommended strategies - Cue cough and re-swallow if wet vocal quality Supervision: 1:1 Close Supervision - Supervision at meals. Pt is ok for drinks at bedside unsupervised. Recommend Repeat Modified Barium Swallow: TBD Need for Skilled Speech Therapy Services: Yes Comment: Will recommend the patient for continued dysphagia therapy to address deficits in oropharyngeal swallow function. Would consider the patient for oropharyngeal strengthening to improve lingual coordination, laryngeal elevation, hyoid excursion, and tongue base retraction (e.g. effortful, Phill, Ofe, tongue retraction). The patient would benefit from thorough education regarding diet recommendations and recommended compensatory strategies. Recommended Referrals: GI Consult - Consider GI consult to address retention of contrast observed in mid esophagus with retrograde flow below UES. Would NOT RECOMMEND barium esophagram, as the patient is at risk to aspirate sequential sips Education Completed: 1. Described result of evaluation. - Educated pt and RNHelen, in results and recommendations. APPLIED PSYCHOLOGY CHAIR provided handout of recommendations to RN., 7. Pt requires further education on strategies & risks. - Status Active ST Patient: Active - Contact Information [facility] Speech Therapy:: Vicenta Gautam M.A. [facility]-APPLIED PSYCHOLOGY CHAIR Speech-Language Pathologist [facility] [address] [place] [address] [email or web address] [phone] 09/24/21 16:19
--- NOTE | 2021-09-24 14:45 | CASEMGMT ---
Social Work SW spoke with Alicia at [facility]. Alicia states they are unable to accept pt over the weekend due to her Covid positive status. SW requested precert be started today so pt can discharge on Monday. KAILEE Reynoso
[2021-09-24 17:00] LABS: Bedside Glucose 284 mg/dL (74-106)
[2021-09-24 21:10] LABS: Bedside Glucose 221 mg/dL (74-106)
[2021-09-25] VITALS (13 sets, daily range): BP systolic 110–126; BP diastolic 67–81; PULSE 84–107; RESP 16–18; TEMP 36.4–36.6; O2SAT 88–97
--- NOTE | 2021-09-25 05:35 | PN.CC_ITS ---
Assessment & Plan Assessment/Plan (1) Acute respiratory failure with hypoxia: (2) COVID-19: (3) Sepsis: (4) Complicated urinary tract infection: (5) Debility: PLAN: RECOMMENDATIONS: 1. Wean supplemental oxygen to maintain saturations at or above 90%. 2. Continue Decadron through 09/28. 3. Continue intermittent diuretic therapy as needed. 4. Continue aggressive bronchopulmonary hygiene. 5. Encourage incentive spirometer use and mobilize patient as tolerated. 6. Given the patient's improving respiratory status, will sign off. Please call with any additional questions. IMPRESSIONS: 1. Acute hypoxic respiratory failure secondary to COVID-19 Continue supplemental oxygen to maintain saturations at or above 90%. The patient has completed a course of remdesivir and will remain on Decadron to complete 10 days of therapy. The patient ultimately refused baricitinib. Continue aggressive bronchopulmonary hygiene and mobilize patient as tolerated. Continue intermittent use of diuretics as needed. Overall, however, the patient appears to be improving from a hypoxemia standpoint. 2. Sepsis secondary to complicated E. coli UTI Continue antimicrobials as ordered to complete 7 days of therapy. 3. Debility/MS/multiple allergies Complicates care, management, recovery and prognosis. Physical therapy to work with the patient. This note was generated with Sessions dictation software. It may contain incorrect words, spelling, and punctuation that were not noted in checking the note before signing. Subjective Subjective The patient was seen and examined at the bedside this morning. Events from the last 24 hours have been reviewed. The patient is currently afebrile, hemodynamically stable and maintaining appropriate oxygen saturations on 2 L/min via nasal cannula. The patient is currently being considered for disposition to snf facility. Objective Data Objective Data The patient's most recent lab work, culture data and imaging studies have all been personally reviewed. Rapid coronavirus antigen testing was positive on September 17. Respiratory viral panel was negative. Sputum culture [facility] not [facility] any [facility] to date. Vital Signs: Vital Signs Temp Pulse Resp BP Pulse Ox 97.5 F L 88 18 126/72 H 94 09/25/21 03:00 09/25/21 03:00 09/25/21 03:00 09/25/21 03:00 09/25/21 03:00 Oxygen Flow Rate (L/min) [ 0 AMBULATING on Room Air] Oxygen Flow Rate (L/min) [At 0 REST on Room Air] Oxygen Flow Rate (L/min) 2 Oxygen Delivery Method Nasal Cannula Weight: 64.7 kg Body Mass Index (BMI) 25.7 Intake & Output: Intake and Output for Last 24 Hours 09/23/21 09/24/21 09/25/21 23:59 23:59 23:59 Intake Total 1100 / 1130 440 / 560 120 / 120 Output Total 1550 / 1550 1010 / 1010 0 / 0 Balance -450 / -420 -570 / -450 120 / 120 Lab / Micro Data Attestation: I reviewed the patient's lab results. Result Diagrams: 09/25/21 05:48 09/24/21 05:07 Labs: Laboratory Results - last 24 hr 09/24/21 05:07: WBC 13.0 H, RBC 5.53 H, Hgb 15.2 H, Hct 48.9 H, MCV 88.4, MCH 27.5, MCHC 31.1 L, RDW Std Deviation 43.6, RDW Coeff of Hung 13.3, Plt Count 591 H, MPV 9.2, Neut % (Auto) Not Reportable, Absolute Neuts (auto) 10.2 H, Absolute Lymphs (auto) 1.04, Total Counted 100, Neutrophils % (Manual) 75 H, Lymphocytes % (Manual) 8 L, Monocytes % (Manual) 14 H, Metamyelocytes % 3 H, Diff Path Review Reviewed, Platelet Estimate MKD INC, RBC Morphology NORM C+C 09/24/21 05:07: Sodium 138, Potassium 3.8, Chloride 104, Carbon Dioxide 27.0, Anion Gap 7, BUN 37 H, Creatinine 0.59, Estim Creat Clear Calc 84.28, Est GFR (MDRD) Af Amer 132, Est GFR (MDRD) Non-Af 109, BUN/Creatinine Ratio 62.5 H, Glucose 155 H, Calcium 9.2 09/24/21 06:18: POC Glucose 156 H 09/24/21 10:42: POC Glucose 230 H 09/24/21 16:44: POC Glucose 284 H 09/24/21 20:59: POC Glucose 221 H Micro: Microbiology 09/16/21 13:15 Blood Culture (Wb) - Anticubital Left Blood Culture - Final No growth in 5 days. 09/16/21 13:03 Blood Culture (Wb) - Anticubital Right Blood Culture - Final No growth in 5 days. 09/18/21 19:20 Sputum, Expectorated/Coughed Gram Stain - Final 09/18/21 19:20 Sputum, Expectorated/Coughed Respiratory Culture - Final Coag Negative Staph Coag Negative Staph#2 09/18/21 09:05 Sputum, Expectorated/Coughed Gram Stain - Final 09/18/21 09:05 Sputum, Expectorated/Coughed Respiratory Culture - Final Mixed normal respiratory ibeth. No Streptococcus pneumoniae, beta-hemolytic Streptococcus or Staphylococcus aureus isolated. 09/18/21 14:20 Urine, Clean Catch Legionella Antigen - Final 09/18/21 14:20 Urine, Clean Catch Streptococcus pneumoniae Antigen (M - Final 09/16/21 13:30 Urine Catheter - Catheter Urine Culture - Final Presumptive E. coli 09/17/21 23:25 Mucosa - Nasopharyngeal Respiratory Panel (PCR) - Final 09/17/21 23:25 Nasal Secretion SARS-CoV-2 Antigen (Rapid) - Final SARS-CoV-2 (COVID 19) 09/17/21 09:00 Urine, Clean Catch Legionella Antigen - Final 09/17/21 09:00 Urine, Clean Catch Streptococcus pneumoniae Antigen (M - Final Physical Exam Const alert, oriented x3 and no apparent distress General Appearance: cooperative and frail HEENT normocephalic, head/scalp atraumatic and moist oral mucous membranes Eyes PERRL, EOMs intact bilaterally and conjunctivae normal Neck supple General: trachea midline Chest inspection of chest normal Resp Auscultation: diminished lung sounds Cardio regular rate and regular rhythm GI normal to inspection, nondistended, normoactive bowel sounds Extremity no clubbing, cyanosis or edema Skin no rashes or lesions noted Neuro moves all extremities and no focal motor deficits Psych cooperative and affect normal Charges/Coding Visit Charges Inpatient E&M: 15677 Subs Hosp L2
[2021-09-25 06:22] LABS: Hematocrit 48.6 % (37-47); Hemoglobin 15.5 g/dL (12.0-15.0); Mean Corp Hgb Conc 31.9 g/dL (32-36); Mean Corpuscular Hgb 27.9 pg (27.0-32.0); Mean Corpuscular Volume 87.6 fL (81-99); Mean Platelet Vol. 9.1 fl (6.2-12.0); POSITIVE COUNT YES; POSITIVE DIFFERENTIAL YES; POSITIVE MORPHOLOGY YES; Platelet Count 616 K/mm3 (150-450); RBC Distribution Width CV 13.4 % (11.6-14.6); Red Blood Count 5.55 M/mm3 (4.2-5.4); White Blood Count 14.3 K/mm3 (4.4-11.0)
[2021-09-25 06:27] LABS: Differential Indicated MANUAL DIFF
[2021-09-25] MEDS: Insulin Lispro 100 UNIT/ML INSULN.PEN SC ×3 (06:44→20:58)
[2021-09-25 06:51] LABS: Bedside Glucose 154 mg/dL (74-106)
[2021-09-25 07:00] LABS: Anion Gap 8 (5-15); BUN 28 mg/dL (7-18); BUN/Creat Ratio 45.8 RATIO (10-20); Chloride 101 mmol/L (98-107); Creatinine, Serum 0.61 mg/dL (0.55-1.02); EST Glomerular Filtration Rate 105 mL/min (>60); Est Glom Filt Rate - Afr Amer 127 mL/min (>60); Estimated Creatinine Clearance 81.51 ml/min; Glucose 126 mg/dL (74-106); Potassium 3.9 mmol/L (3.5-5.1); Sodium Level 136 mmol/L (136-145)
[2021-09-25 07:19] LABS: Lymphocyte 16 % (19-41); Metamyelocyte 3 % (0-1); Monocyte 13 % (0-10); Neutrophil-Band 1 % (0-5); Neutrophil-Segmented 66 % (47-70); Promyelocyte 1 % (0-0); Total Cells Counted 100 (MANUAL DIFF)
[2021-09-25 07:20] LABS: Neutrophil # 9.98 X10^3/uL (2.7-7.7)
[2021-09-25 07:21] LABS: Absolute Lymphocyte Count 2.28 X10^3/uL (0.83-4.51); Lymphocyte # 2.28 X10^3/ul (0.83-4.51)
[2021-09-25 07:22] LABS: Platelet Estimate MKD INC (ADEQ); Red Cell Morphology NORM C+C NORMAL (NORM C&C)
[2021-09-25] MEDS: Enoxaparin 30 MG/0.3 ML Syringe SC ×2 (09:45→20:58)
[2021-09-25] MEDS: Atenolol 25 MG Tablet PO (09:45)
[2021-09-25] MEDS: guaiFENesin 1,200 MG Tablet 1200 MG PO ×2 (09:45→20:58)
[2021-09-25] MEDS: dexAMETHasone 10 MG/ML Vial 6 MG IV (09:45)
[2021-09-25] MEDS: Ceftriaxone 1 GM/50 ML BAG IV (09:57)
--- NOTE | 2021-09-25 11:02 | PN.HOSP_ITS ---
Subjective Subjective Patient seen and examined. She states she feels much better. She is now on 2 L of oxygen. She had an uneventful night and review of systems otherwise negative. She has otherwise remained hemodynamically stable. Objective Data Objective Data Vital Signs: Vital Signs Temp Pulse Resp BP Pulse Ox 97.8 F 107 H 18 110/78 93 09/25/21 09:34 09/25/21 09:34 09/25/21 09:34 09/25/21 09:34 09/25/21 09:36 Oxygen Flow Rate (L/min) [ 2 AMBULATING with Oxygen #1] Oxygen Flow Rate (L/min) [ 0 AMBULATING on Room Air] Oxygen Flow Rate (L/min) [At 0 REST on Room Air] Oxygen Flow Rate (L/min) 2 Oxygen Delivery Method Room Air Weight: 142 lb 10.225 oz Body Mass Index (BMI) 25.7 Intake & Output: Intake and Output for Last 24 Hours 09/23/21 09/24/21 09/25/21 23:59 23:59 23:59 Intake Total 1100 / 1130 440 / 560 180 / 180 Output Total 1550 / 1550 1010 / 1010 250 / 250 Balance -450 / -420 -570 / -450 -70 / -70 Lab / Micro Data Result Diagrams: 09/25/21 05:48 09/25/21 05:48 Labs: Laboratory Results - last 24 hr 09/24/21 05:07: Diff Path Review Reviewed 09/24/21 16:44: POC Glucose 284 H 09/24/21 20:59: POC Glucose 221 H 09/25/21 05:48: WBC 14.3 H, RBC 5.55 H, Hgb 15.5 H, Hct 48.6 H, MCV 87.6, MCH 27.9, MCHC 31.9 L, RDW Std Deviation 43.0, RDW Coeff of Hung 13.4, Plt Count 616 H, MPV 9.1, Neut % (Auto) Not Reportable, Absolute Neuts (auto) 10.0 H, Absolute Lymphs (auto) 2.28, Total Counted 100, Neutrophils % (Manual) 66, Band Neutrophils % 1, Lymphocytes % (Manual) 16 L, Monocytes % (Manual) 13 H, Metamyelocytes % 3 H, Promyelocytes % 1 H, Diff Path Review May foll, Platelet Estimate MKD INC, RBC Morphology NORM C+C 09/25/21 05:48: Sodium 136, Potassium 3.9, Chloride 101, Carbon Dioxide 27.0, Anion Gap 8, BUN 28 H, Creatinine 0.61, Estim Creat Clear Calc 81.51, Est GFR (MDRD) Af Amer 127, Est GFR (MDRD) Non-Af 105, BUN/Creatinine Ratio 45.8 H, Glucose 126 H, Calcium 9.0 09/25/21 06:42: POC Glucose 154 H Micro: Microbiology 09/16/21 13:15 Blood Culture (Wb) - Anticubital Left Blood Culture - Final No growth in 5 days. 09/16/21 13:03 Blood Culture (Wb) - Anticubital Right Blood Culture - Final No growth in 5 days. 09/18/21 19:20 Sputum, Expectorated/Coughed Gram Stain - Final 09/18/21 19:20 Sputum, Expectorated/Coughed Respiratory Culture - Final Coag Negative Staph Coag Negative Staph#2 09/18/21 09:05 Sputum, Expectorated/Coughed Gram Stain - Final 09/18/21 09:05 Sputum, Expectorated/Coughed Respiratory Culture - Final Mixed normal respiratory ibeth. No Streptococcus pneumoniae, beta-hemolytic Streptococcus or Staphylococcus aureus isolated. 09/18/21 14:20 Urine, Clean Catch Legionella Antigen - Final 09/18/21 14:20 Urine, Clean Catch Streptococcus pneumoniae Antigen (M - Final 09/16/21 13:30 Urine Catheter - Catheter Urine Culture - Final Presumptive E. coli 09/17/21 23:25 Mucosa - Nasopharyngeal Respiratory Panel (PCR) - Final 09/17/21 23:25 Nasal Secretion SARS-CoV-2 Antigen (Rapid) - Final SARS-CoV-2 (COVID 19) 09/17/21 09:00 Urine, Clean Catch Legionella Antigen - Final 09/17/21 09:00 Urine, Clean Catch Streptococcus pneumoniae Antigen (M - Final Physical Exam Const alert, oriented x3, no apparent distress and average body habitus General Appearance: cooperative Exam Limitations: no limitations HEENT normocephalic, head/scalp atraumatic, moist oral mucous membranes and oropharynx normal Head and Scalp: normocephalic Eyes PERRL, EOMs intact bilaterally and conjunctivae normal Neck no lymphadenopathy, supple and no JVD Resp no retractions and no use of accessory muscles Resp Narrative: Mildly diminished breath sounds bibasally, few crackles, no wheezes. On 2L of oxygen by nasal canula Auscultation: crackles and rhonchi; Negative for rales or wheezes Cardio regular rate, regular rhythm, S1 normal heart sound, S2 normal heart sound, no murmurs, no rub, no gallops, no clicks and no JVD Rate: tachycardic GI normal to inspection, nondistended, normoactive bowel sounds, soft to palpation, non-tender and non-distended; Negative for hepatosplenomegaly Extremity normal to inspection, full ROM and no clubbing, cyanosis or edema Peripheral Pulses: Yes pulses 2+ throughout Skin no rashes or lesions noted, no wounds, skin turgor normal, no jaundice, no petechiae and no mottling Skin Narrative: Neuro oriented x3, CN's II-XII intact bilaterally, moves all extremities, no focal motor deficits and no sensory deficits noted Neuro Narrative: frail and weak Sensorium / Orientation: awake and alert Speech: speech normal Psych affect normal Appearance: appropriate Assessment & Plan Assessment/Plan (1) Acute respiratory failure with hypoxia: (2) COVID-19: (3) Sepsis: (4) Complicated urinary tract infection: PLAN: #Acute hypoxic respiratory failure due to covid 19 pneumonia * has been vaccinated and boosted, but is immunosuppressed from treatment for MS * weaned off AirVo and is now down to 2L of oxgen by nasal canula * completed a course of remdesivir.To complete a 10 day course of decadron 10mg daily * urine for strep and legionella were negative and sputum culture was also negative. * critical care on board * titrate oxygen to maintain sats >90% * breathing treatment with bronchodilators * being diuresed with IV lasix as well to help with fluid overload. * #Sepsis due to UTI * blood cultures are negative. * Urine culture showed pansensitive E coli * completed a course of ceftriaxone * did have some urinary retention on bladder scan. Will benefit from urology referral on outpatient basis. * #Hypokalemia:resolved #Dysphagia * improving. Speech therapy on board * on supervised meals with regular textures and thin liquids, per speech therapy * #Hypertension; on atenolol. #Multiple sclerosis * on Ocrevus q 6 monthly * will monitor * PT/OT on board to help with weakness * #Debility and general weakness * may be due to acute illness. * PT/OT on board. Fall precautions * DVT prophylaxis: lovenox Disposition: for placement in SNF once medically stable Charges/Coding Visit Charges Inpatient E&M: 97163 Subs Hosp L2
[2021-09-25 11:20] LABS: Bedside Glucose 131 mg/dL (74-106)
[2021-09-25] MEDS: Acetaminophen 325 MG Tablet 650 MG PO (16:15)
[2021-09-25 16:26] LABS: Bedside Glucose 150 mg/dL (74-106)
[2021-09-25 21:15] LABS: Bedside Glucose 212 mg/dL (74-106)
[2021-09-26] VITALS (12 sets, daily range): BP systolic 121–132; BP diastolic 68–80; PULSE 78–100; RESP 18; TEMP 36.3–36.4; O2SAT 91–96
[2021-09-26 05:59] LABS: Hematocrit 47.6 % (37-47); Hemoglobin 15.6 g/dL (12.0-15.0); Mean Corp Hgb Conc 32.8 g/dL (32-36); Mean Corpuscular Hgb 28.3 pg (27.0-32.0); Mean Corpuscular Volume 86.2 fL (81-99); POSITIVE COUNT YES; POSITIVE DIFFERENTIAL YES; POSITIVE MORPHOLOGY YES; Platelet Count 580 K/mm3 (150-450); RBC Distribution Width CV 13.4 % (11.6-14.6); RBC Distribution Width SD 41.7 fl (35.1-43.9); Red Blood Count 5.52 M/mm3 (4.2-5.4); White Blood Count 13.2 K/mm3 (4.4-11.0)
[2021-09-26 06:08] LABS: Differential Indicated MANUAL DIFF
[2021-09-26 06:43] LABS: Lymphocyte 7 % (19-41); Monocyte 15 % (0-10); Myelocyte 1 % (0-0); Neutrophil-Segmented 77 % (47-70); Total Cells Counted 100 (MANUAL DIFF)
[2021-09-26 06:44] LABS: Absolute Neutrophil Count 10.3 X10^3/uL (2.0-7.7); Anion Gap 8 (5-15); BUN 22 mg/dL (7-18); BUN/Creat Ratio 43.1 RATIO (10-20); Calcium,Total 9.1 mg/dL (8.5-10.1); Chloride 101 mmol/L (98-107); Creatinine, Serum 0.51 mg/dL (0.55-1.02); EST Glomerular Filtration Rate 129 mL/min (>60); Est Glom Filt Rate - Afr Amer 156 mL/min (>60); Glucose 116 mg/dL (74-106); Neutrophil # 10.29 X10^3/uL (2.7-7.7); Sodium Level 135 mmol/L (136-145)
[2021-09-26 06:45] LABS: Absolute Lymphocyte Count 0.92 X10^3/uL (0.83-4.51); Lymphocyte # 0.92 X10^3/ul (0.83-4.51)
[2021-09-26 06:47] LABS: Platelet Estimate MKD INC (ADEQ); Red Cell Morphology NORM C+C NORMAL (NORM C&C)
--- NOTE | 2021-09-26 07:30 | PN.HOSP_ITS ---
Subjective Subjective Patient seen and examined. She had no complaints today and felt much better. SHe is on room air now. She had an uneventful night and review of systems is otherwise negative. Objective Data Objective Data Vital Signs: Vital Signs Temp Pulse Resp BP Pulse Ox 97.4 F L 86 18 132/80 H 96 09/26/21 03:05 09/26/21 03:05 09/26/21 03:05 09/26/21 03:05 09/26/21 03:05 Oxygen Flow Rate (L/min) [ 2 AMBULATING with Oxygen #1] Oxygen Flow Rate (L/min) [ 0 AMBULATING on Room Air] Oxygen Flow Rate (L/min) [At 0 REST on Room Air] Oxygen Flow Rate (L/min) 2 Oxygen Delivery Method Room Air Weight: 143 lb 8.335 oz Body Mass Index (BMI) 25.7 Intake & Output: Intake and Output for Last 24 Hours 09/24/21 09/25/21 09/26/21 23:59 23:59 23:59 Intake Total 440 / 560 1040 / 1040 Output Total 1010 / 1010 900 / 900 300 / 300 Balance -570 / -450 140 / 140 -300 / -300 Lab / Micro Data Result Diagrams: 09/26/21 05:17 09/26/21 05:17 Labs: Laboratory Results - last 24 hr 09/25/21 11:11: POC Glucose 131 H 09/25/21 16:09: POC Glucose 150 H 09/25/21 20:51: POC Glucose 212 H 09/26/21 05:17: WBC 13.2 H, RBC 5.52 H, Hgb 15.6 H, Hct 47.6 H, MCV 86.2, MCH 28.3, MCHC 32.8, RDW Std Deviation 41.7, RDW Coeff of Hung 13.4, Plt Count 580 H, MPV 9.0, Neut % (Auto) Not Reportable, Absolute Neuts (auto) 10.3 H, Absolute Lymphs (auto) 0.92, Total Counted 100, Neutrophils % (Manual) 77 H, Lymphocytes % (Manual) 7 L, Monocytes % (Manual) 15 H, Myelocytes % 1 H, Diff Path Review May , Platelet Estimate MKD INC, RBC Morphology NORM C+C 09/26/21 05:17: Sodium 135 L, Potassium 4.0, Chloride 101, Carbon Dioxide 26.0, Anion Gap 8, BUN 22 H, Creatinine 0.51 L, Estim Creat Clear Calc 97.50, Est GFR (MDRD) Af Amer 156, Est GFR (MDRD) Non-Af 129, BUN/Creatinine Ratio 43.1 H, Glucose 116 H, Calcium 9.1 Micro: Microbiology 09/16/21 13:15 Blood Culture (Wb) - Anticubital Left Blood Culture - Final No growth in 5 days. 09/16/21 13:03 Blood Culture (Wb) - Anticubital Right Blood Culture - Final No growth in 5 days. 09/18/21 19:20 Sputum, Expectorated/Coughed Gram Stain - Final 09/18/21 19:20 Sputum, Expectorated/Coughed Respiratory Culture - Final Coag Negative Staph Coag Negative Staph#2 09/18/21 09:05 Sputum, Expectorated/Coughed Gram Stain - Final 09/18/21 09:05 Sputum, Expectorated/Coughed Respiratory Culture - Final Mixed normal respiratory ibeth. No Streptococcus pneumoniae, beta-hemolytic Streptococcus or Staphylococcus aureus isolated. 09/18/21 14:20 Urine, Clean Catch Legionella Antigen - Final 09/18/21 14:20 Urine, Clean Catch Streptococcus pneumoniae Antigen (M - Final 09/16/21 13:30 Urine Catheter - Catheter Urine Culture - Final Presumptive E. coli 09/17/21 23:25 Mucosa - Nasopharyngeal Respiratory Panel (PCR) - Final 09/17/21 23:25 Nasal Secretion SARS-CoV-2 Antigen (Rapid) - Final SARS-CoV-2 (COVID 19) 09/17/21 09:00 Urine, Clean Catch Legionella Antigen - Final 09/17/21 09:00 Urine, Clean Catch Streptococcus pneumoniae Antigen (M - Final Physical Exam Const alert, oriented x3, no apparent distress and average body habitus General Appearance: cooperative Orientation / Consciousness: lethargic Exam Limitations: no limitations HEENT normocephalic, head/scalp atraumatic, moist oral mucous membranes and oropharynx normal Head and Scalp: normocephalic Eyes PERRL, EOMs intact bilaterally and conjunctivae normal Neck no lymphadenopathy, supple and no JVD Neck Narrative: Resp no retractions and no use of accessory muscles Resp Narrative: Mildly diminished breath sounds bibasally, few crackles, no wheezes. On room air Auscultation: crackles and rhonchi; Negative for rales or wheezes Cardio regular rate, regular rhythm, S1 normal heart sound, S2 normal heart sound, no murmurs, no rub, no gallops, no clicks and no JVD Rate: tachycardic GI normal to inspection, nondistended, normoactive bowel sounds, soft to palpation, non-tender and non-distended; Negative for hepatosplenomegaly Extremity normal to inspection, full ROM and no clubbing, cyanosis or edema Peripheral Pulses: Yes pulses 2+ throughout Skin no rashes or lesions noted, no wounds, skin turgor normal, no jaundice, no petechiae and no mottling Skin Narrative: Neuro oriented x3, CN's II-XII intact bilaterally, moves all extremities, no focal motor deficits and no sensory deficits noted Sensorium / Orientation: awake and alert Speech: speech normal Psych affect normal Appearance: appropriate Assessment & Plan Assessment/Plan (1) Acute respiratory failure with hypoxia: (2) COVID-19: (3) Sepsis: (4) Complicated urinary tract infection: PLAN: #Acute hypoxic respiratory failure due to covid 19 pneumonia * has been vaccinated and boosted, but is immunosuppressed from treatment for MS * now completely off oxygen and on room air. * completed a course of remdesivir.To complete a 10 day course of decadron 10mg daily * urine for strep and legionella were negative and sputum culture was also negative. * critical care on board * titrate oxygen to maintain sats >90% * breathing treatment with bronchodilators * being diuresed with IV lasix as well to help with fluid overload. * #Sepsis due to UTI * blood cultures are negative. * Urine culture showed pansensitive E coli * completed a course of ceftriaxone * did have some urinary retention on bladder scan. Will benefit from urology referral on outpatient basis. * #Hypokalemia:resolved #Dysphagia * improving. Speech therapy on board * on supervised meals with regular textures and thin liquids, per speech therapy * #Hypertension; on atenolol. #Multiple sclerosis * on Ocrevus q 6 monthly * will monitor * PT/OT on board to help with weakness * #Debility and general weakness * may be due to acute illness. * PT/OT on board. Fall precautions * DVT prophylaxis: lovenox Disposition: for placement in SNF; SNF able to take her tomorrow Monday09/27/2021 Charges/Coding Visit Charges Inpatient E&M: 69935 Subs Hosp L2
[2021-09-26] MEDS: dexAMETHasone 10 MG/ML Vial 6 MG IV (10:39)
[2021-09-26] MEDS: guaiFENesin 1,200 MG Tablet 1200 MG PO ×2 (10:41→21:14)
[2021-09-26] MEDS: Enoxaparin 30 MG/0.3 ML Syringe SC ×2 (10:41→21:13)
[2021-09-26] MEDS: Atenolol 25 MG Tablet PO (10:42)
[2021-09-26] MEDS: Ceftriaxone 1 GM/50 ML BAG IV (10:44)
[2021-09-26] MEDS: Insulin Lispro 100 UNIT/ML INSULN.PEN SC ×3 (10:52→21:13)
[2021-09-26 11:01] LABS: Bedside Glucose 174 mg/dL (74-106)
[2021-09-26 15:36] LABS: Bedside Glucose 225 mg/dL (74-106)
[2021-09-26 21:26] LABS: Bedside Glucose 223 mg/dL (74-106)
[2021-09-27] VITALS (9 sets, daily range): BP systolic 118–140; BP diastolic 63–89; PULSE 85–111; RESP 18–22; TEMP 35.9–36.6; O2SAT 92–98
[2021-09-27 05:44] LABS: Absolute Lymphocyte Count 1.14 X10^3/uL (0.83-4.51); Absolute Neutrophil Count 11.7 X10^3/uL (2.0-7.7); Basophil# 0.04 X10^3/uL; Basophil% 0.3 % (0-1); Eosinophil# 0.02 X10^3/uL; Eosinophils% 0.1 % (0-5); Hematocrit 46.2 % (37-47); Hemoglobin 14.7 g/dL (12.0-15.0); Lymphocyte # 1.14 X10^3/ul (0.83-4.51); Lymphocyte % 7.6 % (19-41); Mean Corp Hgb Conc 31.8 g/dL (32-36); Mean Corpuscular Hgb 28.3 pg (27.0-32.0); Mean Platelet Vol. 8.9 fl (6.2-12.0); Monocyte# 1.42 X10^3/uL; Monocyte% 9.4 % (0-10); NRBC Flagged by Analyzer 0 % (0-5); Neutrophil # 11.74 X10^3/uL (2.7-7.7); Platelet Count 515 K/mm3 (150-450); RBC Distribution Width CV 13.7 % (11.6-14.6); RBC Distribution Width SD 44.5 fl (35.1-43.9); Red Blood Count 5.19 M/mm3 (4.2-5.4); White Blood Count 15.1 K/mm3 (4.4-11.0)
[2021-09-27 06:09] LABS: Anion Gap 6 (5-15); BUN 22 mg/dL (7-18); BUN/Creat Ratio 39.4 RATIO (10-20); Calcium,Total 9.4 mg/dL (8.5-10.1); Chloride 107 mmol/L (98-107); Creatinine, Serum 0.56 mg/dL (0.55-1.02); EST Glomerular Filtration Rate 117 mL/min (>60); Est Glom Filt Rate - Afr Amer 141 mL/min (>60); Estimated Creatinine Clearance 88.79 ml/min; Glucose 126 mg/dL (74-106); Potassium 4.2 mmol/L (3.5-5.1); Sodium Level 137 mmol/L (136-145)
[2021-09-27 06:16] LABS: Bedside Glucose 126 mg/dL (74-106)
--- NOTE | 2021-09-27 08:33 | CASEMGMT ---
EUSEBIA faxed updates to [facility]. Pre-cert was started on Monday. Nichelle Santos MSW ADRIÁN
[2021-09-27] MEDS: guaiFENesin 1,200 MG Tablet 1200 MG PO ×2 (09:22→21:01)
[2021-09-27] MEDS: Atenolol 25 MG Tablet PO (09:22)
[2021-09-27] MEDS: dexAMETHasone 10 MG/ML Vial 6 MG IV (09:22)
[2021-09-27] MEDS: 0.9% Saline Lock 10 ML Syringe IV (09:23)
[2021-09-27] MEDS: Enoxaparin 30 MG/0.3 ML Syringe SC ×2 (09:23→21:01)
[2021-09-27] MEDS: Ceftriaxone 1 GM/50 ML BAG IV (09:24)
[2021-09-27 10:14] LABS: Pathologist Review Reviewed
[2021-09-27 10:17] LABS: Pathologist Review Reviewed
--- NOTE | 2021-09-27 10:52 | CASEMGMT ---
EUSEBIA called patient's sister, Sandi. EUSEBIA let Sandi know that patient is ready for discharge. EUSEBIA explained we are just waiting on insurance approval. EUSEBIA will call Sandi when patient will be leaving. Sandi thanked EUSEBIA for the update. Plan: [facility] pending pre-cert. Nichelle Santos HELPER SHEAR OPERATOR ADRIÁN
--- NOTE | 2021-09-27 11:00 | CASEMGMT ---
EUSEBIA called Poornima at [facility] and left her a voice mail requesting a return call or email letting EUSEBIA know she received the updates and that the pre-cert was started. Nichelle SAMPSON
[2021-09-27 11:26] LABS: Bedside Glucose 138 mg/dL (74-106)
--- NOTE | 2021-09-27 11:55 | CASEMGMT ---
EUSEBIA received an email from Poornima at [facility]. Poornima received EUSEBIA's fax and the pre-cert was started. Plan: d/c to [facility] pending insurance approval. Nichelle SAMPSON
[2021-09-27] MEDS: Acetaminophen 325 MG Tablet 650 MG PO (12:51)
--- NOTE | 2021-09-27 13:12 | PN.HOSP_ITS ---
Subjective Subjective Feels well. Anxious to go to residential facility. Objective Data Objective Data Vital Signs: Vital Signs Temp Pulse Resp BP Pulse Ox 36.6 C 111 H 22 H 118/72 95 09/27/21 08:59 09/27/21 08:59 09/27/21 08:59 09/27/21 08:59 09/27/21 10:00 Oxygen Flow Rate (L/min) [ 2 AMBULATING with Oxygen #1] Oxygen Flow Rate (L/min) [ 0 AMBULATING on Room Air] Oxygen Flow Rate (L/min) [At 0 REST on Room Air] Oxygen Flow Rate (L/min) 2 Oxygen Delivery Method Room Air Weight: 65.4 kg Body Mass Index (BMI) 25.7 Intake & Output: Intake and Output for Last 24 Hours 09/25/21 09/26/21 09/27/21 23:59 23:59 23:59 Intake Total 1040 / 1040 890 / 990 370 / 370 Output Total 900 / 900 1000 / 1300 800 / 800 Balance 140 / 140 -110 / -310 -430 / -430 Lab / Micro Data Result Diagrams: 09/27/21 05:16 09/27/21 05:16 Labs: Laboratory Results - last 24 hr 09/25/21 05:48: Diff Path Review Reviewed 09/26/21 05:17: Diff Path Review Reviewed 09/26/21 15:27: POC Glucose 225 H 09/26/21 21:03: POC Glucose 223 H 09/27/21 05:16: WBC 15.1 H, RBC 5.19, Hgb 14.7, Hct 46.2, MCV 89.0, MCH 28.3, MCHC 31.8 L, RDW Std Deviation 44.5 H, RDW Coeff of Hung 13.7, Plt Count 515 H, MPV 8.9, Immature Gran % (Auto) 4.600 H, Neut % (Auto) 78.0 H, Lymph % (Auto) 7.6 L, Hand % (Auto) 9.4, Eos % (Auto) 0.1, Baso % (Auto) 0.3, Absolute Neuts (auto) 11.7 H, Absolute Lymphs (auto) 1.14, Nucleated RBC % 0 09/27/21 05:16: Sodium 137, Potassium 4.2, Chloride 107, Carbon Dioxide 24.0, Anion Gap 6, BUN 22 H, Creatinine 0.56, Estim Creat Clear Calc 88.79, Est GFR (MDRD) Af Amer 141, Est GFR (MDRD) Non-Af 117, BUN/Creatinine Ratio 39.4 H, Glucose 126 H, Calcium 9.4 09/27/21 06:10: POC Glucose 126 H 09/27/21 11:20: POC Glucose 138 H Micro: Microbiology 09/16/21 13:15 Blood Culture (Wb) - Anticubital Left Blood Culture - Final No growth in 5 days. 09/16/21 13:03 Blood Culture (Wb) - Anticubital Right Blood Culture - Final No growth in 5 days. 09/18/21 19:20 Sputum, Expectorated/Coughed Gram Stain - Final 09/18/21 19:20 Sputum, Expectorated/Coughed Respiratory Culture - Final Coag Negative Staph Coag Negative Staph#2 09/18/21 09:05 Sputum, Expectorated/Coughed Gram Stain - Final 09/18/21 09:05 Sputum, Expectorated/Coughed Respiratory Culture - Final Mixed normal respiratory ibeth. No Streptococcus pneumoniae, beta-hemolytic Streptococcus or Staphylococcus aureus isolated. 09/18/21 14:20 Urine, Clean Catch Legionella Antigen - Final 09/18/21 14:20 Urine, Clean Catch Streptococcus pneumoniae Antigen (M - Final 09/16/21 13:30 Urine Catheter - Catheter Urine Culture - Final Presumptive E. coli 09/17/21 23:25 Mucosa - Nasopharyngeal Respiratory Panel (PCR) - Final 09/17/21 23:25 Nasal Secretion SARS-CoV-2 Antigen (Rapid) - Final SARS-CoV-2 (COVID 19) 09/17/21 09:00 Urine, Clean Catch Legionella Antigen - Final 09/17/21 09:00 Urine, Clean Catch Streptococcus pneumoniae Antigen (M - Final Physical Exam Const alert and no apparent distress Resp normal respiratory effort, no retractions, no use of accessory muscles and clear to auscultation bilaterally Cardio regular rate, regular rhythm, S1 normal heart sound and S2 normal heart sound GI normal to inspection, nondistended, normoactive bowel sounds, soft to palpation, non-tender and non-distended Extremity Extremity Narrative: Trace lower extremity edema Neuro Sensorium / Orientation: awake and alert Assessment & Plan Assessment/Plan (1) Acute respiratory failure with hypoxia: (2) COVID-19: (3) Sepsis: QUALIFIERS: Sepsis type: sepsis due to unspecified organism Sepsis acute organ dysfunction status: without acute organ dysfunction Qualified Code(s): A41.9 - Sepsis, unspecified organism (4) Complicated urinary tract infection: PLAN: #Acute hypoxic respiratory failure due to covid 19 pneumonia * has been vaccinated and boosted, but is immunosuppressed from treatment for MS * now completely off oxygen and on room air. * completed a course of remdesivir.To complete a 10 day course of decadron 10mg daily * urine for strep and legionella were negative and sputum culture was also negative. * critical care on board * titrate oxygen to maintain sats >90% * breathing treatment with bronchodilators #Sepsis due to UTI * blood cultures are negative. * Urine culture showed pansensitive E coli * completed a course of ceftriaxone, will DC today 09/27 * did have some urinary retention on bladder scan. Will benefit from urology referral on outpatient basis. #Hypokalemia:resolved #Dysphagia * improving. Speech therapy on board * on supervised meals with regular textures and thin liquids, per speech therapy #Hypertension; on atenolol. #Multiple sclerosis * on Ocrevus q 6 monthly * will monitor * PT/OT on board to help with weakness #Debility and general weakness * may be due to acute illness. * PT/OT on board. Fall precautions DVT prophylaxis: lovenox Disposition: for placement in SNF; awaiting on precert Charges/Coding Visit Charges Inpatient E&M: 23939 Subs Hosp L2
--- NOTE | 2021-09-27 14:22 | CHAPLAIN ---
Type of Pastoral Visit ___ Initial Visit ___ Follow-up Visit ___ On-call Visit ___ General Patient Visit ___ Spiritual Assessment ___ Family Conference ___ Bereavement ___ Rapid Response ___ Code Blue ___ Other (describe below) Pastoral Care Referral From ___ Patient ___ Family ___ Nurse ___ Physician ___ Radio Station Engineer ___ Civil Engineer Land Development ___ Other (describe below) Sacrament/Intervention ___ Active listening ___ Anointing ___ Pentecostal ___ Bereavement ___ Communion ___ Rehana exploration ___ ___ Life review ___ Prayer ___ Reconciliation ___ Sacrament of Sick ___ Supportive presence ___ Wedding ___ Other (describe below) Pastoral Comments patient is going to [facility] and is fine with this decision; patient talks freely about herself and her life but gives appearance of someone not fully developed in language and etetick participant
[2021-09-27] MEDS: Insulin Lispro 100 UNIT/ML INSULN.PEN SC ×2 (17:04→21:01)
[2021-09-27 17:10] LABS: Bedside Glucose 297 mg/dL (74-106)
[2021-09-27 22:20] LABS: Bedside Glucose 173 mg/dL (74-106)
[2021-09-28 02:57] VITALS: PULSE 78
[2021-09-28 03:00] VITALS: BP 124/85; PULSE 78; RESP 17; TEMP 36.3; O2SAT 96
[2021-09-28 05:54] LABS: Absolute Lymphocyte Count 1.32 X10^3/uL (0.83-4.51); Absolute Neutrophil Count 11.5 X10^3/uL (2.0-7.7); Basophil# 0.08 X10^3/uL; Basophil% 0.5 % (0-1); Eosinophil# 0.01 X10^3/uL; Eosinophils% 0.1 % (0-5); Hematocrit 46.6 % (37-47); Hemoglobin 14.7 g/dL (12.0-15.0); Lymphocyte # 1.32 X10^3/ul (0.83-4.51); Lymphocyte % 8.9 % (19-41); Mean Corp Hgb Conc 31.5 g/dL (32-36); Mean Corpuscular Volume 88.8 fL (81-99); Mean Platelet Vol. 9.1 fl (6.2-12.0); Monocyte# 1.28 X10^3/uL; Monocyte% 8.6 % (0-10); NRBC Flagged by Analyzer 0 % (0-5); Neutrophil # 11.47 X10^3/uL (2.7-7.7); Neutrophil % 77.5 % (47-70); Platelet Count 490 K/mm3 (150-450); RBC Distribution Width CV 13.5 % (11.6-14.6); RBC Distribution Width SD 43.8 fl (35.1-43.9); Red Blood Count 5.25 M/mm3 (4.2-5.4); White Blood Count 14.8 K/mm3 (4.4-11.0)
[2021-09-28 06:37] LABS: Anion Gap 8 (5-15); BUN 22 mg/dL (7-18); Calcium,Total 9.2 mg/dL (8.5-10.1); Chloride 106 mmol/L (98-107); Creatinine, Serum 0.54 mg/dL (0.55-1.02); EST Glomerular Filtration Rate 122 mL/min (>60); Est Glom Filt Rate - Afr Amer 147 mL/min (>60); Estimated Creatinine Clearance 92.08 ml/min; Glucose 115 mg/dL (74-106); Sodium Level 138 mmol/L (136-145)
[2021-09-28 07:06] LABS: Bedside Glucose 104 mg/dL (74-106)
[2021-09-28 07:22] VITALS: O2SAT 97
[2021-09-28 07:44] VITALS: PULSE 88
[2021-09-28 09:00] VITALS: BP 117/79; PULSE 100; RESP 14; TEMP 36.6; O2SAT 98
--- NOTE | 2021-09-28 10:22 | CASEMGMT ---
EUSEBIA emailed Poornima at [facility] inquiring if she has heard anything from patient's insurance. Nichelle Santos WEB UI DESIGNER ADRIÁN
[2021-09-28] MEDS: dexAMETHasone 10 MG/ML Vial 6 MG IV (10:46)
[2021-09-28] MEDS: Enoxaparin 30 MG/0.3 ML Syringe SC (10:46)
[2021-09-28] MEDS: guaiFENesin 1,200 MG Tablet 1200 MG PO (10:46)
[2021-09-28] MEDS: Atenolol 25 MG Tablet PO (10:46)
[2021-09-28] MEDS: 0.9% Saline Lock 10 ML Syringe IV (10:47)
--- NOTE | 2021-09-28 11:09 | PCM.TXEXTCAR ---
Diet 09/19/21 07:21 Diet: Regular - General Food consistency:: Easy to Chew Liquid Consistency:: Regular/Thin Type of Dietary Supplement:: 120ml Glucerna Shake TID Is pt able to select menu?: Yes Diet Comments: Meats cut bite size, NO STRAWS, supervision at meals, oral care after meals Routine Orders/Code Status Routine Lab Work: CBC (weekly) and BMP (weekly) Code Status: Full Code Therapies Weight Bearing: Full weight bearing Physical Therapy: Eval and Treat Occupational Therapy: Eval and Treat Problem/Diagnosis (1) Acute respiratory failure with hypoxia: Status: Acute (2) COVID-19: Status: Acute (3) Sepsis: Status: Acute (4) Complicated urinary tract infection: Status: Acute Allergies/Procedures Done in Hospital Allergies naproxen Allergy (Verified 01/24/21 00:24) Rash Penicillins Allergy (Verified 01/24/21 00:24) Rash Sulfa (Sulfonamide Antibiotics) Allergy (Verified 01/24/21 00:24) Rash tizanidine Adverse Reaction (Verified 01/24/21 00:24) Unknown Procedures: None Type of Care/Length of Stay Estimated LOS: Convalescent Care Less Than 30 days Type of Care Needed: Skilled Rehab Potential: Fair Prognosis: Good Additional Orders/Day of Discharge Day of Discharge: 09/28/21 Dietary and Speech Recommendations Dietitian Recommendations/Changes: Continue regular diet for now with consistency as per DIALYSIS SOCIAL WORKER; will restrict carbohydrates as needed if blood glucose remains elevated. Will add 120 ml glucerna shake TID with meals. Discharge Plan Admission Admit Date/Time: 09/16/21 14:10 Primary Reason for Your Visit: UTI. COVID 19. Attending Provider: Bijan Swain Primary Care Provider: Derrick Hughes Consulting Providers: Jose Cruz Wright ; Alan Terry ; Meera York WET POUR MIXER Discharge Orders/Prescriptions Prescriptions: Continued atenolol 25 tablet 25 mg PO DAILY RF: 0 acetaminophen 500 MG tablet 1,000 mg PO Q4H PRN PRN (Reason: Pain) RF: 0 Referrals / Follow Up: Derrick Hughes MD [Primary Care Provider] - Within 2 Weeks Disposition Disposition (needs filled in before D/C Order can be placed): Custodial Facility
--- NOTE | 2021-09-28 11:11 | CASEMGMT ---
EUSEBIA received an email from Poornima and patient was approved. EUSEBIA notified physician and certified legal secretary specialist. Await orders. Nichelle SAMPSON
--- NOTE | 2021-09-28 11:16 | PCM.DC.SUM ---
Providers Date of Admission: 09/16/21 Date of Discharge: 09/28/21 Primary Care Physician: Dr. Derrick Hughes MD Consultations 09/18/21 11:25 Consult: Cardiology Clinical Nurse Specialist / Pulmonary Medicine Routine Consulting Provider: Pulmonary Medicine suzanne [place] Reason for Consult: Acute hypoxic respiratory failure secondary to COVID-19 pneumonia EMERGENT Consult: No MD Notified: Yes Date Notified: 09/18/21 Time Notified: 10:51 Method of Notification: Text Reason For Visit: UTI WITH SEPSIS Diagnosis Discharge Diagnosis (1) Acute respiratory failure with hypoxia: Status: Acute Code(s): J96.01 - Acute respiratory failure with hypoxia (2) COVID-19: Status: Acute Code(s): U07.1 - COVID-19 (3) Sepsis: Status: Acute Code(s): A41.9 - Sepsis, unspecified organism Qualifiers: Sepsis type: sepsis due to unspecified organism Sepsis acute organ dysfunction status: without acute organ dysfunction Qualified Code(s): A41.9 - Sepsis, unspecified organism (4) Complicated urinary tract infection: Status: Acute Code(s): N39.0 - Urinary tract infection, site not specified Medications at Discharge Home Medications acetaminophen 1,000 mg PO Q4H PRN PRN 07/03/18 atenolol 25 mg PO DAILY 07/03/18 Hospital Course Operations None Procedures None Summary of Care Provided Minutes Spent on Discharge: 32 Hospital Course: #Acute hypoxic respiratory failure due to covid 19 pneumonia resolved had been vaccinated and boosted, but is immunosuppressed from treatment for MS now completely off oxygen and on room air. completed a course of remdesivir and dexamethasone urine for strep and legionella were negative and sputum culture was also negative. #Sepsis due to UTI blood cultures are negative. Urine culture showed pansensitive E coli completed a course of ceftriaxone, discontinued 09/27 did have some urinary retention on bladder scan. Will benefit from urology referral on outpatient basis. #Hypokalemia:resolved #Dysphagia improving. Speech therapy on board on supervised meals with regular textures and thin liquids, per speech therapy #Hypertension; on atenolol. #Multiple sclerosis on Ocrevus q 6 monthly will monitor PT/OT on board to help with weakness #Debility and general weakness may be due to acute illness. PT/OT on board. DC to [facility] Physical Exam Const alert and no apparent distress HEENT normocephalic Resp normal respiratory effort, no retractions, no use of accessory muscles and clear to auscultation bilaterally Cardio regular rate, regular rhythm, S1 normal heart sound and S2 normal heart sound GI normal to inspection, nondistended, normoactive bowel sounds and soft to palpation Weight / BMI Weight Weight: 66.1 kg Body Mass Index (BMI) 25.7 ABG / Lab / Microbiology Data Result Diagrams: 09/28/21 05:28 09/28/21 05:28 Laboratory: Laboratory Results - last 24 hr 09/27/21 11:20: POC Glucose 138 H 09/27/21 17:01: POC Glucose 297 H 09/27/21 20:57: POC Glucose 173 H 09/28/21 05:28: WBC 14.8 H, RBC 5.25, Hgb 14.7, Hct 46.6, MCV 88.8, MCH 28.0, MCHC 31.5 L, RDW Std Deviation 43.8, RDW Coeff of Hung 13.5, Plt Count 490 H, MPV 9.1, Immature Gran % (Auto) 4.400 H, Neut % (Auto) 77.5 H, Lymph % (Auto) 8.9 L, Clare % (Auto) 8.6, Eos % (Auto) 0.1, Baso % (Auto) 0.5, Absolute Neuts (auto) 11.5 H, Absolute Lymphs (auto) 1.32, Nucleated RBC % 0 09/28/21 05:28: Sodium 138, Potassium 4.0, Chloride 106, Carbon Dioxide 24.0, Anion Gap 8, BUN 22 H, Creatinine 0.54 L, Estim Creat Clear Calc 92.08, Est GFR (MDRD) Af Amer 147, Est GFR (MDRD) Non-Af 122, BUN/Creatinine Ratio 41.0 H, Glucose 115 H, Calcium 9.2 09/28/21 06:27: POC Glucose 104 Microbiology: Microbiology 09/16/21 13:15 Blood Culture (Wb) - Anticubital Left Blood Culture - Final No growth in 5 days. 09/16/21 13:03 Blood Culture (Wb) - Anticubital Right Blood Culture - Final No growth in 5 days. 09/18/21 19:20 Sputum, Expectorated/Coughed Gram Stain - Final 09/18/21 19:20 Sputum, Expectorated/Coughed Respiratory Culture - Final Coag Negative Staph Coag Negative Staph#2 09/18/21 09:05 Sputum, Expectorated/Coughed Gram Stain - Final 09/18/21 09:05 Sputum, Expectorated/Coughed Respiratory Culture - Final Mixed normal respiratory ibeth. No Streptococcus pneumoniae, beta-hemolytic Streptococcus or Staphylococcus aureus isolated. 09/18/21 14:20 Urine, Clean Catch Legionella Antigen - Final 09/18/21 14:20 Urine, Clean Catch Streptococcus pneumoniae Antigen (M - Final 09/16/21 13:30 Urine Catheter - Catheter Urine Culture - Final Presumptive E. coli 09/17/21 23:25 Mucosa - Nasopharyngeal Respiratory Panel (PCR) - Final 09/17/21 23:25 Nasal Secretion SARS-CoV-2 Antigen (Rapid) - Final SARS-CoV-2 (COVID 19) 09/17/21 09:00 Urine, Clean Catch Legionella Antigen - Final 09/17/21 09:00 Urine, Clean Catch Streptococcus pneumoniae Antigen (M - Final Meaningful Use Info Meaningful Use Diagnoses (Choose all that apply): None applicable Discharge Plan Admission Admit Date/Time: 09/16/21 14:10 Primary Reason for Your Visit: UTI. COVID 19. Attending Provider: Bijan Swain Primary Care Provider: Derrick Hughes Consulting Providers: Jose Cruz Wright ; Alan Terry ; Meera York DENTAL CHAIR ASSEMBLER Discharge Orders/Prescriptions Prescriptions: Continued atenolol 25 tablet 25 mg PO DAILY RF: 0 acetaminophen 500 MG tablet 1,000 mg PO Q4H PRN PRN (Reason: Pain) RF: 0 Referrals / Follow Up: Derrick Hughes MD [Primary Care Provider] - Within 2 Weeks Disposition Disposition (needs filled in before D/C Order can be placed): Intermediate Facility Charges/Coding Visit Charges Inpatient E&M: 40363 Disch Hosp
[2021-09-28 11:20] LABS: Bedside Glucose 188 mg/dL (74-106)
--- NOTE | 2021-09-28 11:26 | PHA.DC.MR ---
Pharmacy Service has performed discharge medication reconciliation for this patient. The patient's discharge medication list was reviewed for discrepancies and discrepancies were resolved. Home Medications acetaminophen 1,000 mg PO Q4H PRN PRN 07/03/18 atenolol 25 mg PO DAILY 07/03/18
--- NOTE | 2021-09-28 11:44 | CASEMGMT ---
EUSEBIA completed a 7000 on [facility]. EUSEBIA arranged for patient to get picked up at 1300 via [employer] van. EUSEBIA faxed orders and tile picker time to [facility]. SW notified RN, assistant corporate secretary, patient, and left messages for her sister. Patient then told SW she forgot her sister's friend was supposed to bring in her stuff. She does not know a time or her phone number. EUSEBIA called patient's sister again and left her a voice mail letting her know tile picker time and asking about the person bringing in patient's belongings. EUSEBIA notified Poornima from [facility] via email. Plan: d/c to [facility] under intermediate level of care on a convalescent stay. [facility] transported via [employer] van. Nichelle SAMPSON
[2021-09-28 12:05] VITALS: O2SAT 98
[2021-09-28] MEDS: Insulin Lispro 100 UNIT/ML INSULN.PEN SC (12:12)
--- NOTE | 2021-09-28 15:24 | CASEMGMT ---
EUSEBIA notified Krystle Louis that patient will be discharged to [facility] today. Nichelle Santos CROSS COUNTRY/TRACK AND FIELD COACH ADRIÁN
--- NOTE | 2021-09-29 09:26 | CASEMGMT ---
EUSEBIA received a voice mail from patient's sister, Sandi indicating she was informed patient was discharged to the long term already and she was never notified by this worker. EUSEBIA left messages on both phone numbers [facility] has for Sandi yesterday at 11:39a and 11:43a. EUSEBIA called Sandi this am and let her know EUSEBIA did leave 2 messages for her on both numbers EUSEBIA has for her. Sandi is not sure what happened to the messages and appreciated EUSEBIA's call today. Nichelle Santos DEHYDRATING PRESS OPERATOR ADRIÁN
== END 2021-09-28 14:00 | disposition skilled nursing facility (03) | DRG 720 ==
LOC: ED 14:01 → MS3 14:23 → ICU 09-18 21:09 → PCU 09-20 15:11
PROVIDERS: Hospitalist; Internal Medicine; Internal Medicine Critical Care Medicine; Student in an Organized Health Care Education/Training Program; Admitting Provider Family Medicine; Emergency Provider Emergency Medicine; PCP Family Medicine
DX: A41.51 Sepsis due to Escherichia coli [E. coli] (principal); J96.01 Acute respiratory failure with hypoxia; J12.82 Pneumonia due to coronavirus disease 2019; A41.89 Other specified sepsis; G35 Multiple sclerosis; R65.20 Severe sepsis without septic shock; I10 Essential (primary) hypertension; N30.00 Acute cystitis without hematuria; E87.2 Acidosis; E87.6 Hypokalemia; U07.1 COVID-19; R13.10 Dysphagia, unspecified; R33.9 Retention of urine, unspecified; Z79.899 Other long term (current) drug therapy
CPT/HCPCS: 36415; 36600; 71045; 74230; 76770; 80048; 80053; 80202; 81001; 82803; 82962; 83605; 83735; 84100; 84443; 85025; 85379; 85610; 85730; 86140; 87040; 87070; 87086; 87088; 87186; 87205; 87426; 87449; 87633; 92507; 92526; 92610; 92611; 93005; 94002; 94003; 94640; 94660; 94667; 94668; 94762; 97110; 97116; 97163; 97166; 97530; 97535; 99251; 99285; J2185; J7030; J7050; P9612; A4216; G0463; J0248; J1940

== ENCOUNTER → 2021-10-11 | Outpatient (REF) | payer SELFPAY ==
[2021-10-11 09:33] LABS: Absolute Lymphocyte Count 1.28 X10^3/uL (0.83-4.51); Basophil# 0.07 X10^3/uL; Basophil% 0.5 % (0-1); Eosinophil# 0.47 X10^3/uL; Eosinophils% 3.5 % (0-5); Hematocrit 41.2 % (37-47); Hemoglobin 12.4 g/dL (12.0-15.0); Lymphocyte # 1.28 X10^3/ul (0.83-4.51); Lymphocyte % 9.6 % (19-41); Mean Corp Hgb Conc 30.1 g/dL (32-36); Mean Corpuscular Hgb 27.1 pg (27.0-32.0); Mean Corpuscular Volume 90.2 fL (81-99); Mean Platelet Vol. 9.2 fl (6.2-12.0); NRBC Flagged by Analyzer 0 % (0-5); Neutrophil # 9.97 X10^3/uL (2.7-7.7); Neutrophil % 74.6 % (47-70); Platelet Count 369 K/mm3 (150-450); RBC Distribution Width CV 14.5 % (11.6-14.6); RBC Distribution Width SD 47.8 fl (35.1-43.9); Red Blood Count 4.57 M/mm3 (4.2-5.4); White Blood Count 13.4 K/mm3 (4.4-11.0)
[2021-10-11 09:45] LABS: ALB/GLOB Ratio 0.4 RATIO (0.9-2.4); AST(SGOT) 55 U/L (15-37); Alanine Aminotransfer ALT/SGPT 120 U/L (13-56); Albumin, Serum 1.8 g/dL (3.2-5.0); Alkaline Phosphatase 79 U/L (45-117); Anion Gap 8 (5-15); BUN 31 mg/dL (7-18); BUN/Creat Ratio 64.6 RATIO (10-20); Calcium,Total 8.9 mg/dL (8.5-10.1); Chloride 102 mmol/L (98-107); Creatinine, Serum 0.48 mg/dL (0.55-1.02); EST Glomerular Filtration Rate 139 mL/min (>60); Est Glom Filt Rate - Afr Amer 168 mL/min (>60); Globulin 4.5 g/dL (2.2-4.2); Glucose 130 mg/dL (74-106); Protein, Total 6.3 g/dL (6.4-8.2); Sodium Level 137 mmol/L (136-145)
== END | disposition home or self-care (01) ==
LOC: OLS.WHLEAS 05:00
PROVIDERS: PCP Family Medicine; Visit Provider Family Medicine
DX: G35 Multiple sclerosis (principal); J96.21 Acute and chronic respiratory failure with hypoxia; M62.81 Muscle weakness (generalized); R54 Age-related physical debility; R26.2 Difficulty in walking, not elsewhere classified
CPT/HCPCS: 36415; 80053; 85025

== ENCOUNTER → 2021-10-18 | Outpatient (REF) | payer SELFPAY ==
[2021-10-18 09:02] LABS: Hemoglobin 11.6 g/dL (12.0-15.0); Mean Corp Hgb Conc 30.5 g/dL (32-36); Mean Corpuscular Hgb 27.4 pg (27.0-32.0); Mean Corpuscular Volume 89.6 fL (81-99); Mean Platelet Vol. 8.6 fl (6.2-12.0); POSITIVE COUNT YES; POSITIVE DIFFERENTIAL YES; POSITIVE MORPHOLOGY YES; Platelet Count 561 K/mm3 (150-450); RBC Distribution Width CV 14.9 % (11.6-14.6); RBC Distribution Width SD 48.5 fl (35.1-43.9); Red Blood Count 4.24 M/mm3 (4.2-5.4); White Blood Count 18.6 K/mm3 (4.4-11.0)
[2021-10-18 09:03] LABS: Differential Indicated MANUAL DIFF
[2021-10-18 09:30] LABS: Anion Gap 10 (5-15); BUN 30 mg/dL (7-18); BUN/Creat Ratio 49.9 RATIO (10-20); Calcium,Total 9.6 mg/dL (8.5-10.1); Chloride 97 mmol/L (98-107); EST Glomerular Filtration Rate 107 mL/min (>60); Est Glom Filt Rate - Afr Amer 129 mL/min (>60); Glucose 120 mg/dL (74-106); Potassium 4.7 mmol/L (3.5-5.1); Sodium Level 131 mmol/L (136-145)
[2021-10-18 09:48] LABS: Eosinophil 2 % (0-5); Lymphocyte 11 % (19-41); Metamyelocyte 6 % (0-1); Monocyte 8 % (0-10); Myelocyte 4 % (0-0); Neutrophil-Segmented 68 % (47-70); Platelet Estimate MOD INC (ADEQ); Promyelocyte 1 % (0-0); Red Cell Morphology NORM C+C NORMAL (NORM C&C); Total Cells Counted 100 (MANUAL DIFF)
[2021-10-18 09:49] LABS: Absolute Lymphocyte Count 2.05 X10^3/uL (0.83-4.51); Absolute Neutrophil Count 12.6 X10^3/uL (2.0-7.7); Lymphocyte # 2.05 X10^3/ul (0.83-4.51)
[2021-10-19 07:33] LABS: Color, Urine Yellow (Yellow); Glucose, Dipstick Normal (Normal); Ketone-Dipstick Negative (Negative); Leukocyte Esterase-Dipstick Negative /ul (Negative); Nitrite-Dipstick Negative (Negative); Occult Blood-Urine Negative /ul (Negative); Protein-Dipstick 15 mg/dl (Negative); Specific Gravity, Urine 1.015 (1.002-1.030); Urine Bilirubin Dipstick Negative (Negative); Urine Clarity Clear (Clear); Urine Urobilinogen Normal (Normal)
[2021-10-19 12:41] LABS: Pathologist Review Reviewed
== END | disposition home or self-care (01) ==
LOC: OLS.WHLEAS 05:00
PROVIDERS: PCP Family Medicine; Referring Provider Family Medicine; Visit Provider Family Medicine
DX: G35 Multiple sclerosis (principal); N17.9 Acute kidney failure, unspecified; J96.21 Acute and chronic respiratory failure with hypoxia; M62.81 Muscle weakness (generalized); R54 Age-related physical debility; R26.2 Difficulty in walking, not elsewhere classified; Z87.440 Personal history of urinary (tract) infections
CPT/HCPCS: 36415; 80048; 81002; 85025; 87086; 87088

== ENCOUNTER → 2021-10-25 | Outpatient (REF) | payer SELFPAY ==
[2021-10-25 09:33] LABS: Absolute Lymphocyte Count 1.29 X10^3/uL (0.83-4.51); Absolute Neutrophil Count 13.8 X10^3/uL (2.0-7.7); Basophil# 0.14 X10^3/uL; Basophil% 0.8 % (0-1); Eosinophil# 0.34 X10^3/uL; Hematocrit 43.1 % (37-47); Hemoglobin 13.4 g/dL (12.0-15.0); Lymphocyte # 1.29 X10^3/ul (0.83-4.51); Lymphocyte % 7.5 % (19-41); Mean Corp Hgb Conc 31.1 g/dL (32-36); Mean Corpuscular Hgb 27.3 pg (27.0-32.0); Mean Corpuscular Volume 87.8 fL (81-99); Mean Platelet Vol. 8.6 fl (6.2-12.0); Monocyte# 1.36 X10^3/uL; Monocyte% 7.9 % (0-10); NRBC Flagged by Analyzer 0 % (0-5); Neutrophil # 13.75 X10^3/uL (2.7-7.7); Neutrophil % 79.4 % (47-70); Platelet Count 614 K/mm3 (150-450); RBC Distribution Width CV 15.5 % (11.6-14.6); RBC Distribution Width SD 49.2 fl (35.1-43.9); Red Blood Count 4.91 M/mm3 (4.2-5.4); White Blood Count 17.3 K/mm3 (4.4-11.0)
[2021-10-25 09:57] LABS: Anion Gap 7 (5-15); BUN 16 mg/dL (7-18); BUN/Creat Ratio 18.2 RATIO (10-20); Calcium,Total 8.9 mg/dL (8.5-10.1); Chloride 106 mmol/L (98-107); Creatinine, Serum 0.88 mg/dL (0.55-1.02); EST Glomerular Filtration Rate 69 mL/min (>60); Est Glom Filt Rate - Afr Amer 84 mL/min (>60); Glucose 106 mg/dL (74-106); Potassium 4.3 mmol/L (3.5-5.1); Sodium Level 137 mmol/L (136-145)
== END | disposition home or self-care (01) ==
LOC: OLS.WHLEAS 05:00
PROVIDERS: PCP Family Medicine; Referring Provider Family Medicine; Visit Provider Family Medicine
DX: G35 Multiple sclerosis (principal); N17.9 Acute kidney failure, unspecified; J96.21 Acute and chronic respiratory failure with hypoxia; M62.81 Muscle weakness (generalized); R54 Age-related physical debility; R26.2 Difficulty in walking, not elsewhere classified
CPT/HCPCS: 36415; 80048; 85025

== ENCOUNTER → 2021-11-02 | Outpatient (REF) | payer SELFPAY ==
[2021-11-02 08:53] LABS: Absolute Lymphocyte Count 1.38 X10^3/uL (0.83-4.51); Absolute Neutrophil Count 6.8 X10^3/uL (2.0-7.7); Basophil# 0.11 X10^3/uL; Basophil% 1.1 % (0-1); Eosinophil# 0.42 X10^3/uL; Eosinophils% 4.3 % (0-5); Hematocrit 41.3 % (37-47); Hemoglobin 12.2 g/dL (12.0-15.0); Lymphocyte # 1.38 X10^3/ul (0.83-4.51); Lymphocyte % 14.1 % (19-41); Mean Corp Hgb Conc 29.5 g/dL (32-36); Mean Corpuscular Hgb 26.6 pg (27.0-32.0); Mean Corpuscular Volume 90.2 fL (81-99); Mean Platelet Vol. 8.2 fl (6.2-12.0); Monocyte# 0.89 X10^3/uL; Monocyte% 9.1 % (0-10); NRBC Flagged by Analyzer 0 % (0-5); Neutrophil # 6.82 X10^3/uL (2.7-7.7); Neutrophil % 69.5 % (47-70); Platelet Count 545 K/mm3 (150-450); RBC Distribution Width CV 15.7 % (11.6-14.6); RBC Distribution Width SD 51.6 fl (35.1-43.9); Red Blood Count 4.58 M/mm3 (4.2-5.4); White Blood Count 9.8 K/mm3 (4.4-11.0)
[2021-11-02 09:28] LABS: Anion Gap 7 (5-15); BUN 21 mg/dL (7-18); BUN/Creat Ratio 35.8 RATIO (10-20); Calcium,Total 9.6 mg/dL (8.5-10.1); Chloride 100 mmol/L (98-107); Creatinine, Serum 0.59 mg/dL (0.55-1.02); EST Glomerular Filtration Rate 110 mL/min (>60); Est Glom Filt Rate - Afr Amer 133 mL/min (>60); Glucose 78 mg/dL (74-106); Potassium 3.5 mmol/L (3.5-5.1); Sodium Level 138 mmol/L (136-145)
== END | disposition home or self-care (01) ==
LOC: OLS.WHLEAS 04:00
PROVIDERS: PCP Family Medicine; Referring Provider Family Medicine; Visit Provider Family Medicine
DX: G35 Multiple sclerosis (principal); N17.9 Acute kidney failure, unspecified; J96.21 Acute and chronic respiratory failure with hypoxia; M62.81 Muscle weakness (generalized); R26.2 Difficulty in walking, not elsewhere classified; R54 Age-related physical debility
CPT/HCPCS: 36415; 80048; 85025

== ENCOUNTER → 2021-11-13 | Outpatient (CLI) | payer MEDICAID, SELFPAY ==
--- NOTE | 2021-11-13 07:45 | MRI_ITS ---
STUDY: MRI BRAIN WITHOUT CONTRAST REASON FOR EXAM: Female, 61 years old. AMS, multiple sclerosis TECHNIQUE: Standardized multiplanar fat and water weighted pulse sequences were obtained. COMPARISON: 01/23/2020 and 12/01/2018. FINDINGS: Normal size of the ventricles and extra-axial spaces for the patient''s age. Normal white matter tracts of the supratentorial brain. There are confluent demyelinating plagues of the supratentorial brain, with mild diffuse volume loss suggesting atrophy. Normal bilateral basal ganglia. Normal thalami. There is no extra-axial fluid accumulation. Normal flow voids within the major intracranial circulation suggesting patency by spin echo criteria. Normal sella turcica, pituitary gland, infundibular stalk, optic chiasm and hypothalamus. Normal tectal plate and pineal gland. Normal midbrain, ramo and medulla. Normal cerebellum. Normal basal cisterns. Normal bilateral temporal bones. Normal bilateral internal auditory canals. No demonstrated orbital abnormality, within the constraints of a routine brain study. Normal visualized paranasal sinuses. Normal calvarium and skull base. Normal visualized soft tissue structures. Normal visualized upper cervical spine. MRI/Brain without Contrast IMPRESSION: There are confluent demyelinating plagues of the supratentorial brain, with mild diffuse volume loss suggesting atrophy. Electronically Signed: oJsette Kinney MD at 9:28 EDT ,
== END | disposition home or self-care (01) ==
LOC: MRI 07:06
PROVIDERS: PCP Family Medicine; Visit Provider Family Medicine
DX: R41.82 Altered mental status, unspecified (principal)
CPT/HCPCS: 70551

== ENCOUNTER → 2021-11-16 | Outpatient (REF) | payer MEDICAID, SELFPAY ==
[2021-11-16 07:09] LABS: Absolute Lymphocyte Count 1.38 X10^3/uL (0.83-4.51); Absolute Neutrophil Count 4.5 X10^3/uL (2.0-7.7); Basophil# 0.08 X10^3/uL; Basophil% 1.1 % (0-1); Eosinophil# 0.27 X10^3/uL; Eosinophils% 3.7 % (0-5); Hematocrit 39.7 % (37-47); Hemoglobin 11.6 g/dL (12.0-15.0); Lymphocyte # 1.38 X10^3/ul (0.83-4.51); Lymphocyte % 18.9 % (19-41); Mean Corp Hgb Conc 29.2 g/dL (32-36); Mean Corpuscular Hgb 26.5 pg (27.0-32.0); Mean Corpuscular Volume 90.6 fL (81-99); Mean Platelet Vol. 8.5 fl (6.2-12.0); Monocyte# 0.95 X10^3/uL; NRBC Flagged by Analyzer 0 % (0-5); Neutrophil # 4.51 X10^3/uL (2.7-7.7); Neutrophil % 61.9 % (47-70); Platelet Count 584 K/mm3 (150-450); RBC Distribution Width CV 16.2 % (11.6-14.6); RBC Distribution Width SD 54.2 fl (35.1-43.9); Red Blood Count 4.38 M/mm3 (4.2-5.4); White Blood Count 7.3 K/mm3 (4.4-11.0)
[2021-11-16 07:15] LABS: Anion Gap 6 (5-15); BUN 13 mg/dL (7-18); BUN/Creat Ratio 23.4 RATIO (10-20); Calcium,Total 9.4 mg/dL (8.5-10.1); Chloride 106 mmol/L (98-107); Creatinine, Serum 0.56 mg/dL (0.55-1.02); EST Glomerular Filtration Rate 117 mL/min (>60); Est Glom Filt Rate - Afr Amer 142 mL/min (>60); Glucose 100 mg/dL (74-106); Potassium 3.7 mmol/L (3.5-5.1); Sodium Level 142 mmol/L (136-145)
== END | disposition home or self-care (01) ==
LOC: OLS.WHLEAS 05:00
PROVIDERS: PCP Family Medicine; Visit Provider Family Medicine
DX: G35 Multiple sclerosis (principal); N17.9 Acute kidney failure, unspecified; J96.21 Acute and chronic respiratory failure with hypoxia; M62.81 Muscle weakness (generalized); R54 Age-related physical debility; R26.2 Difficulty in walking, not elsewhere classified
CPT/HCPCS: 36415; 80048; 85025

== ENCOUNTER → 2021-12-14 | Outpatient (REF) | payer MEDICAID, SELFPAY ==
[2021-12-14 09:29] LABS: Absolute Lymphocyte Count 1.34 X10^3/uL (0.83-4.51); Absolute Neutrophil Count 6.7 X10^3/uL (2.0-7.7); Basophil% 1.1 % (0-1); Eosinophil# 0.22 X10^3/uL; Eosinophils% 2.3 % (0-5); Hemoglobin 11.9 g/dL (12.0-15.0); Lymphocyte # 1.34 X10^3/ul (0.83-4.51); Lymphocyte % 14.2 % (19-41); Mean Corpuscular Hgb 26.2 pg (27.0-32.0); Mean Corpuscular Volume 90.1 fL (81-99); Monocyte# 1.04 X10^3/uL; NRBC Flagged by Analyzer 0 % (0-5); Neutrophil # 6.67 X10^3/uL (2.7-7.7); Neutrophil % 70.8 % (47-70); Platelet Count 567 K/mm3 (150-450); RBC Distribution Width CV 15.9 % (11.6-14.6); RBC Distribution Width SD 53.1 fl (35.1-43.9); Red Blood Count 4.55 M/mm3 (4.2-5.4); White Blood Count 9.4 K/mm3 (4.4-11.0)
[2021-12-14 09:37] LABS: Anion Gap 7 (5-15); BUN 22 mg/dL (7-18); BUN/Creat Ratio 40.1 RATIO (10-20); Calcium,Total 9.6 mg/dL (8.5-10.1); Chloride 106 mmol/L (98-107); Creatinine, Serum 0.55 mg/dL (0.55-1.02); EST Glomerular Filtration Rate 119 mL/min (>60); Est Glom Filt Rate - Afr Amer 144 mL/min (>60); Glucose 94 mg/dL (74-106); Potassium 3.6 mmol/L (3.5-5.1); Sodium Level 143 mmol/L (136-145)
== END | disposition home or self-care (01) ==
LOC: OLS.WHLEAS 07:10
PROVIDERS: PCP Family Medicine; Visit Provider Family Medicine
DX: G35 Multiple sclerosis (principal); N17.9 Acute kidney failure, unspecified; J96.21 Acute and chronic respiratory failure with hypoxia; M62.81 Muscle weakness (generalized); R54 Age-related physical debility; R26.2 Difficulty in walking, not elsewhere classified
CPT/HCPCS: 36415; 80048; 85025

== ENCOUNTER → 2021-12-28 | Outpatient (REF) | payer MEDICAID, SELFPAY ==
[2021-12-28 11:02] LABS: Absolute Lymphocyte Count 1.56 X10^3/uL (0.83-4.51); Absolute Neutrophil Count 4.3 X10^3/uL (2.0-7.7); Basophil# 0.08 X10^3/uL; Basophil% 1.1 % (0-1); Eosinophil# 0.24 X10^3/uL; Eosinophils% 3.4 % (0-5); Hematocrit 42.3 % (37-47); Hemoglobin 12.6 g/dL (12.0-15.0); Lymphocyte # 1.56 X10^3/ul (0.83-4.51); Lymphocyte % 22.2 % (19-41); Mean Corp Hgb Conc 29.8 g/dL (32-36); Mean Corpuscular Hgb 26.9 pg (27.0-32.0); Mean Corpuscular Volume 90.2 fL (81-99); Mean Platelet Vol. 8.5 fl (6.2-12.0); Monocyte# 0.82 X10^3/uL; Monocyte% 11.6 % (0-10); NRBC Flagged by Analyzer 0 % (0-5); Neutrophil # 4.29 X10^3/uL (2.7-7.7); Platelet Count 574 K/mm3 (150-450); RBC Distribution Width CV 15.9 % (11.6-14.6); RBC Distribution Width SD 51.9 fl (35.1-43.9); Red Blood Count 4.69 M/mm3 (4.2-5.4)
[2021-12-28 11:34] LABS: Anion Gap 7 (5-15); BUN 21 mg/dL (7-18); BUN/Creat Ratio 34.9 RATIO (10-20); Calcium,Total 9.7 mg/dL (8.5-10.1); Chloride 106 mmol/L (98-107); EST Glomerular Filtration Rate 107 mL/min (>60); Est Glom Filt Rate - Afr Amer 129 mL/min (>60); Glucose 93 mg/dL (74-106); Potassium 3.7 mmol/L (3.5-5.1); Sodium Level 139 mmol/L (136-145)
== END | disposition home or self-care (01) ==
LOC: OLS.WHLEAS 04:00
PROVIDERS: PCP Family Medicine; Visit Provider Family Medicine
DX: G35 Multiple sclerosis (principal); N17.9 Acute kidney failure, unspecified; J96.21 Acute and chronic respiratory failure with hypoxia; M62.81 Muscle weakness (generalized); R54 Age-related physical debility
CPT/HCPCS: 36415; 80048; 85025

== ENCOUNTER → 2022-01-11 | Outpatient (REF) | payer MEDICAID, SELFPAY ==
[2022-01-11 09:03] LABS: Absolute Lymphocyte Count 1.57 X10^3/uL (0.83-4.51); Absolute Neutrophil Count 3.5 X10^3/uL (2.0-7.7); Basophil# 0.08 X10^3/uL; Basophil% 1.3 % (0-1); Eosinophils% 4.7 % (0-5); Hemoglobin 12.4 g/dL (12.0-15.0); Lymphocyte # 1.57 X10^3/ul (0.83-4.51); Lymphocyte % 24.8 % (19-41); Mean Corp Hgb Conc 29.5 g/dL (32-36); Mean Corpuscular Hgb 26.3 pg (27.0-32.0); Mean Corpuscular Volume 89.2 fL (81-99); Mean Platelet Vol. 8.8 fl (6.2-12.0); Monocyte% 12.7 % (0-10); NRBC Flagged by Analyzer 0 % (0-5); Neutrophil # 3.54 X10^3/uL (2.7-7.7); Platelet Count 496 K/mm3 (150-450); RBC Distribution Width CV 15.6 % (11.6-14.6); RBC Distribution Width SD 51.2 fl (35.1-43.9); Red Blood Count 4.71 M/mm3 (4.2-5.4); White Blood Count 6.3 K/mm3 (4.4-11.0)
[2022-01-11 09:30] LABS: Anion Gap 6 (5-15); BUN 23 mg/dL (7-18); BUN/Creat Ratio 45.6 RATIO (10-20); Calcium,Total 9.7 mg/dL (8.5-10.1); Chloride 107 mmol/L (98-107); EST Glomerular Filtration Rate 131 mL/min (>60); Est Glom Filt Rate - Afr Amer 158 mL/min (>60); Glucose 89 mg/dL (74-106); Sodium Level 139 mmol/L (136-145)
== END | disposition home or self-care (01) ==
LOC: OLS.WHLEAS 04:00
PROVIDERS: PCP Family Medicine; Visit Provider Family Medicine
DX: G35 Multiple sclerosis (principal); N17.9 Acute kidney failure, unspecified; J96.21 Acute and chronic respiratory failure with hypoxia; M62.81 Muscle weakness (generalized); R26.2 Difficulty in walking, not elsewhere classified
CPT/HCPCS: 36415; 80048; 85025

== ENCOUNTER → 2022-01-25 | Outpatient (REF) | payer MEDICAID, SELFPAY ==
[2022-01-25 09:55] LABS: Absolute Lymphocyte Count 1.61 X10^3/uL (0.83-4.51); Absolute Neutrophil Count 3.8 X10^3/uL (2.0-7.7); Basophil# 0.11 X10^3/uL; Basophil% 1.6 % (0-1); Eosinophil# 0.25 X10^3/uL; Eosinophils% 3.6 % (0-5); Hematocrit 41.3 % (37-47); Hemoglobin 12.5 g/dL (12.0-15.0); Lymphocyte # 1.61 X10^3/ul (0.83-4.51); Lymphocyte % 23.4 % (19-41); Mean Corp Hgb Conc 30.3 g/dL (32-36); Mean Corpuscular Hgb 26.8 pg (27.0-32.0); Mean Corpuscular Volume 88.6 fL (81-99); Monocyte# 1.05 X10^3/uL; Monocyte% 15.3 % (0-10); NRBC Flagged by Analyzer 0 % (0-5); Neutrophil # 3.82 X10^3/uL (2.7-7.7); Neutrophil % 55.5 % (47-70); Platelet Count 513 K/mm3 (150-450); RBC Distribution Width CV 15.4 % (11.6-14.6); RBC Distribution Width SD 49.9 fl (35.1-43.9); Red Blood Count 4.66 M/mm3 (4.2-5.4); White Blood Count 6.9 K/mm3 (4.4-11.0)
[2022-01-25 10:05] LABS: Anion Gap 9 (5-15); BUN 28 mg/dL (7-18); BUN/Creat Ratio 38.3 RATIO (10-20); Calcium,Total 9.6 mg/dL (8.5-10.1); Chloride 110 mmol/L (98-107); Creatinine, Serum 0.73 mg/dL (0.55-1.02); EST Glomerular Filtration Rate 85 mL/min (>60); Est Glom Filt Rate - Afr Amer 103 mL/min (>60); Glucose 109 mg/dL (74-106); Sodium Level 142 mmol/L (136-145)
== END | disposition home or self-care (01) ==
LOC: OLS.WHLEAS 05:00
PROVIDERS: PCP Family Medicine; Visit Provider Family Medicine
DX: G35 Multiple sclerosis (principal); N17.9 Acute kidney failure, unspecified; J96.21 Acute and chronic respiratory failure with hypoxia; M62.81 Muscle weakness (generalized); R54 Age-related physical debility; R26.2 Difficulty in walking, not elsewhere classified
CPT/HCPCS: 36415; 80048; 85025

== ENCOUNTER → 2022-02-08 | Outpatient (REF) | payer MEDICAID, SELFPAY ==
[2022-02-08 11:02] LABS: Absolute Lymphocyte Count 1.37 X10^3/uL (0.83-4.51); Absolute Neutrophil Count 4.1 X10^3/uL (2.0-7.7); Basophil# 0.09 X10^3/uL; Basophil% 1.3 % (0-1); Eosinophil# 0.28 X10^3/uL; Hematocrit 46.2 % (37-47); Lymphocyte # 1.37 X10^3/ul (0.83-4.51); Lymphocyte % 19.7 % (19-41); Mean Corp Hgb Conc 28.1 g/dL (32-36); Mean Corpuscular Volume 92.4 fL (81-99); Mean Platelet Vol. 8.6 fl (6.2-12.0); Monocyte# 1.07 X10^3/uL; Monocyte% 15.4 % (0-10); NRBC Flagged by Analyzer 0 % (0-5); Neutrophil # 4.13 X10^3/uL (2.7-7.7); Neutrophil % 59.3 % (47-70); Platelet Count 504 K/mm3 (150-450); RBC Distribution Width CV 15.3 % (11.6-14.6); RBC Distribution Width SD 51.8 fl (35.1-43.9)
[2022-02-08 11:38] LABS: Anion Gap 10 (5-15); BUN 25 mg/dL (7-18); BUN/Creat Ratio 38.5 RATIO (10-20); Chloride 109 mmol/L (98-107); Creatinine, Serum 0.65 mg/dL (0.55-1.02); EST Glomerular Filtration Rate 98 mL/min (>60); Est Glom Filt Rate - Afr Amer 118 mL/min (>60); Glucose 99 mg/dL (74-106); Potassium 4.1 mmol/L (3.5-5.1); Sodium Level 143 mmol/L (136-145)
== END | disposition home or self-care (01) ==
LOC: OLS.WHLEAS 05:00
PROVIDERS: PCP Family Medicine; Visit Provider Family Medicine
DX: G35 Multiple sclerosis (principal); N17.9 Acute kidney failure, unspecified; J96.21 Acute and chronic respiratory failure with hypoxia; M62.81 Muscle weakness (generalized); R54 Age-related physical debility; R26.2 Difficulty in walking, not elsewhere classified
CPT/HCPCS: 36415; 80048; 85025

== ENCOUNTER → 2022-02-22 | Outpatient (REF) | payer MEDICAID, SELFPAY ==
[2022-02-22 08:49] LABS: Absolute Lymphocyte Count 1.48 X10^3/uL (0.83-4.51); Absolute Neutrophil Count 4.1 X10^3/uL (2.0-7.7); Basophil# 0.08 X10^3/uL; Basophil% 1.2 % (0-1); Eosinophil# 0.41 X10^3/uL; Eosinophils% 5.9 % (0-5); Hematocrit 43.2 % (37-47); Hemoglobin 13.1 g/dL (12.0-15.0); Lymphocyte # 1.48 X10^3/ul (0.83-4.51); Lymphocyte % 21.4 % (19-41); Mean Corp Hgb Conc 30.3 g/dL (32-36); Mean Corpuscular Hgb 26.7 pg (27.0-32.0); Mean Corpuscular Volume 88.2 fL (81-99); Monocyte# 0.86 X10^3/uL; Monocyte% 12.4 % (0-10); NRBC Flagged by Analyzer 0 % (0-5); Neutrophil # 4.06 X10^3/uL (2.7-7.7); Neutrophil % 58.7 % (47-70); Platelet Count 492 K/mm3 (150-450); RBC Distribution Width CV 15.1 % (11.6-14.6); RBC Distribution Width SD 48.8 fl (35.1-43.9); White Blood Count 6.9 K/mm3 (4.4-11.0)
[2022-02-22 09:19] LABS: Anion Gap 9 (5-15); BUN 30 mg/dL (7-18); BUN/Creat Ratio 48.9 RATIO (10-20); Calcium,Total 9.7 mg/dL (8.5-10.1); Chloride 109 mmol/L (98-107); Creatinine, Serum 0.61 mg/dL (0.55-1.02); EST Glomerular Filtration Rate 104 mL/min (>60); Est Glom Filt Rate - Afr Amer 126 mL/min (>60); Glucose 103 mg/dL (74-106); Potassium 4.3 mmol/L (3.5-5.1); Sodium Level 143 mmol/L (136-145)
== END | disposition home or self-care (01) ==
LOC: OLS.WHLEAS 05:00
PROVIDERS: PCP Family Medicine; Visit Provider Family Medicine
DX: G35 Multiple sclerosis (principal); N17.9 Acute kidney failure, unspecified; M62.81 Muscle weakness (generalized); R26.2 Difficulty in walking, not elsewhere classified
CPT/HCPCS: 36415; 80048; 85025

== ENCOUNTER → 2022-03-08 | Outpatient (REF) | payer MEDICAID, SELFPAY ==
[2022-03-08 09:20] LABS: Absolute Lymphocyte Count 1.49 X10^3/uL (0.83-4.51); Absolute Neutrophil Count 4.3 X10^3/uL (2.0-7.7); Basophil# 0.09 X10^3/uL; Basophil% 1.3 % (0-1); Eosinophil# 0.28 X10^3/uL; Eosinophils% 3.9 % (0-5); Hematocrit 42.8 % (37-47); Lymphocyte # 1.49 X10^3/ul (0.83-4.51); Mean Corp Hgb Conc 30.4 g/dL (32-36); Mean Corpuscular Hgb 26.7 pg (27.0-32.0); Mean Corpuscular Volume 87.9 fL (81-99); Mean Platelet Vol. 8.9 fl (6.2-12.0); Monocyte# 0.86 X10^3/uL; Monocyte% 12.1 % (0-10); NRBC Flagged by Analyzer 0 % (0-5); Neutrophil # 4.34 X10^3/uL (2.7-7.7); Neutrophil % 61.3 % (47-70); Platelet Count 521 K/mm3 (150-450); RBC Distribution Width CV 14.8 % (11.6-14.6); RBC Distribution Width SD 47.6 fl (35.1-43.9); Red Blood Count 4.87 M/mm3 (4.2-5.4); White Blood Count 7.1 K/mm3 (4.4-11.0)
[2022-03-08 09:34] LABS: Anion Gap 7 (5-15); BUN 28 mg/dL (7-18); BUN/Creat Ratio 47.1 RATIO (10-20); Calcium,Total 9.5 mg/dL (8.5-10.1); Chloride 108 mmol/L (98-107); Creatinine, Serum 0.59 mg/dL (0.55-1.02); EST Glomerular Filtration Rate 108 mL/min (>60); Est Glom Filt Rate - Afr Amer 131 mL/min (>60); Glucose 105 mg/dL (74-106); Potassium 4.1 mmol/L (3.5-5.1); Sodium Level 142 mmol/L (136-145)
== END | disposition home or self-care (01) ==
LOC: OLS.WHLEAS 05:00
PROVIDERS: PCP Family Medicine; Visit Provider Family Medicine
DX: G35 Multiple sclerosis (principal); N17.9 Acute kidney failure, unspecified; J96.21 Acute and chronic respiratory failure with hypoxia; M62.81 Muscle weakness (generalized); R54 Age-related physical debility; R26.2 Difficulty in walking, not elsewhere classified
CPT/HCPCS: 36415; 80048; 85025

== ENCOUNTER → 2022-03-22 | Outpatient (REF) | payer MEDICAID, SELFPAY ==
[2022-03-22 09:18] LABS: Absolute Neutrophil Count 5.1 X10^3/uL (2.0-7.7); Basophil# 0.09 X10^3/uL; Basophil% 1.1 % (0-1); Eosinophil# 0.23 X10^3/uL; Eosinophils% 2.9 % (0-5); Hematocrit 42.5 % (37-47); Hemoglobin 13.1 g/dL (12.0-15.0); Lymphocyte % 20.3 % (19-41); Mean Corp Hgb Conc 30.8 g/dL (32-36); Mean Corpuscular Hgb 27.1 pg (27.0-32.0); Mean Corpuscular Volume 87.8 fL (81-99); Mean Platelet Vol. 9.1 fl (6.2-12.0); Monocyte% 10.2 % (0-10); NRBC Flagged by Analyzer 0 % (0-5); Neutrophil # 5.14 X10^3/uL (2.7-7.7); Neutrophil % 65.2 % (47-70); Platelet Count 522 K/mm3 (150-450); RBC Distribution Width SD 48.4 fl (35.1-43.9); Red Blood Count 4.84 M/mm3 (4.2-5.4); White Blood Count 7.9 K/mm3 (4.4-11.0)
[2022-03-22 09:29] LABS: Anion Gap 8 (5-15); BUN 22 mg/dL (7-18); BUN/Creat Ratio 34.4 RATIO (10-20); Calcium,Total 9.4 mg/dL (8.5-10.1); Chloride 108 mmol/L (98-107); Creatinine, Serum 0.64 mg/dL (0.55-1.02); EST Glomerular Filtration Rate 99 mL/min (>60); Est Glom Filt Rate - Afr Amer 120 mL/min (>60); Glucose 96 mg/dL (74-106); Potassium 4.1 mmol/L (3.5-5.1); Sodium Level 142 mmol/L (136-145)
== END | disposition home or self-care (01) ==
LOC: OLS.WHLEAS 05:00
PROVIDERS: PCP Family Medicine; Visit Provider Family Medicine
DX: G35 Multiple sclerosis (principal); N17.9 Acute kidney failure, unspecified; J96.21 Acute and chronic respiratory failure with hypoxia; M62.81 Muscle weakness (generalized); R54 Age-related physical debility; R26.2 Difficulty in walking, not elsewhere classified
CPT/HCPCS: 36415; 80048; 85025

== ENCOUNTER → 2022-04-05 | Outpatient (REF) | payer MEDICAID, SELFPAY ==
[2022-04-05 08:59] LABS: Absolute Lymphocyte Count 1.31 X10^3/uL (0.83-4.51); Absolute Neutrophil Count 6.1 X10^3/uL (2.0-7.7); Basophil# 0.09 X10^3/uL; Eosinophil# 0.32 X10^3/uL; Eosinophils% 3.6 % (0-5); Hematocrit 42.1 % (37-47); Lymphocyte # 1.31 X10^3/ul (0.83-4.51); Lymphocyte % 14.7 % (19-41); Mean Corp Hgb Conc 30.9 g/dL (32-36); Mean Corpuscular Hgb 27.1 pg (27.0-32.0); Mean Corpuscular Volume 87.9 fL (81-99); Mean Platelet Vol. 8.7 fl (6.2-12.0); Monocyte# 1.02 X10^3/uL; Monocyte% 11.4 % (0-10); NRBC Flagged by Analyzer 0 % (0-5); Neutrophil # 6.13 X10^3/uL (2.7-7.7); Neutrophil % 68.9 % (47-70); Platelet Count 516 K/mm3 (150-450); RBC Distribution Width CV 15.3 % (11.6-14.6); RBC Distribution Width SD 49.4 fl (35.1-43.9); Red Blood Count 4.79 M/mm3 (4.2-5.4); White Blood Count 8.9 K/mm3 (4.4-11.0)
[2022-04-05 09:09] LABS: Anion Gap 6 (5-15); BUN 27 mg/dL (7-18); BUN/Creat Ratio 44.3 RATIO (10-20); Calcium,Total 9.6 mg/dL (8.5-10.1); Chloride 108 mmol/L (98-107); Creatinine, Serum 0.61 mg/dL (0.55-1.02); EST Glomerular Filtration Rate 105 mL/min (>60); Est Glom Filt Rate - Afr Amer 127 mL/min (>60); Glucose 105 mg/dL (74-106); Sodium Level 141 mmol/L (136-145)
== END | disposition home or self-care (01) ==
LOC: OLS.WHLEAS 05:00
PROVIDERS: PCP Family Medicine; Visit Provider Family Medicine
DX: G35 Multiple sclerosis (principal); J96.21 Acute and chronic respiratory failure with hypoxia; M62.81 Muscle weakness (generalized); R54 Age-related physical debility; R26.2 Difficulty in walking, not elsewhere classified
CPT/HCPCS: 36415; 80048; 85025

== ENCOUNTER → 2022-04-19 | Outpatient (REF) | payer MEDICAID, SELFPAY ==
[2022-04-19 09:27] LABS: Absolute Neutrophil Count 4.6 X10^3/uL (2.0-7.7); Basophil# 0.08 X10^3/uL; Eosinophil# 0.28 X10^3/uL; Eosinophils% 3.6 % (0-5); Hematocrit 43.8 % (37-47); Hemoglobin 13.1 g/dL (12.0-15.0); Lymphocyte % 23.1 % (19-41); Mean Corp Hgb Conc 29.9 g/dL (32-36); Mean Corpuscular Hgb 26.3 pg (27.0-32.0); Mean Platelet Vol. 8.9 fl (6.2-12.0); Monocyte# 0.94 X10^3/uL; Monocyte% 12.1 % (0-10); NRBC Flagged by Analyzer 0 % (0-5); Neutrophil # 4.61 X10^3/uL (2.7-7.7); Neutrophil % 59.3 % (47-70); Platelet Count 534 K/mm3 (150-450); RBC Distribution Width SD 48.2 fl (35.1-43.9); Red Blood Count 4.98 M/mm3 (4.2-5.4); White Blood Count 7.8 K/mm3 (4.4-11.0)
[2022-04-19 09:33] LABS: Anion Gap 7 (5-15); BUN 26 mg/dL (7-18); BUN/Creat Ratio 43.6 RATIO (10-20); Calcium,Total 9.6 mg/dL (8.5-10.1); Chloride 106 mmol/L (98-107); EST Glomerular Filtration Rate 108 mL/min (>60); Est Glom Filt Rate - Afr Amer 130 mL/min (>60); Glucose 107 mg/dL (74-106); Potassium 4.1 mmol/L (3.5-5.1); Sodium Level 140 mmol/L (136-145)
== END | disposition home or self-care (01) ==
LOC: OLS.WHLEAS 05:00
PROVIDERS: PCP Family Medicine; Visit Provider Family Medicine
DX: G35 Multiple sclerosis (principal); N17.9 Acute kidney failure, unspecified; J96.21 Acute and chronic respiratory failure with hypoxia; M62.81 Muscle weakness (generalized); R54 Age-related physical debility; R26.2 Difficulty in walking, not elsewhere classified
CPT/HCPCS: 36415; 80048; 85025

== ENCOUNTER → 2022-05-03 | Outpatient (REF) | payer MEDICAID, SELFPAY ==
[2022-05-03 08:36] LABS: Absolute Lymphocyte Count 1.95 X10^3/uL (0.83-4.51); Absolute Neutrophil Count 6.6 X10^3/uL (2.0-7.7); Basophil# 0.09 X10^3/uL; Basophil% 0.9 % (0-1); Eosinophil# 0.39 X10^3/uL; Eosinophils% 3.9 % (0-5); Hematocrit 42.2 % (37-47); Hemoglobin 13.2 g/dL (12.0-15.0); Lymphocyte # 1.95 X10^3/ul (0.83-4.51); Lymphocyte % 19.5 % (19-41); Mean Corp Hgb Conc 31.3 g/dL (32-36); Mean Corpuscular Hgb 27.7 pg (27.0-32.0); Mean Corpuscular Volume 88.5 fL (81-99); Mean Platelet Vol. 8.9 fl (6.2-12.0); Monocyte# 0.89 X10^3/uL; Monocyte% 8.9 % (0-10); NRBC Flagged by Analyzer 0 % (0-5); Neutrophil # 6.61 X10^3/uL (2.7-7.7); Neutrophil % 66.2 % (47-70); Platelet Count 488 K/mm3 (150-450); RBC Distribution Width SD 48.7 fl (35.1-43.9); Red Blood Count 4.77 M/mm3 (4.2-5.4)
[2022-05-03 08:56] LABS: Anion Gap 11 (5-15); BUN 29 mg/dL (7-18); BUN/Creat Ratio 48.2 RATIO (10-20); Calcium,Total 9.4 mg/dL (8.5-10.1); Chloride 103 mmol/L (98-107); EST Glomerular Filtration Rate 107 mL/min (>60); Est Glom Filt Rate - Afr Amer 129 mL/min (>60); Glucose 100 mg/dL (74-106); Potassium 4.1 mmol/L (3.5-5.1); Sodium Level 139 mmol/L (136-145)
== END | disposition home or self-care (01) ==
LOC: OLS.WHLEAS 05:00
PROVIDERS: PCP Family Medicine; Visit Provider Family Medicine
DX: G35 Multiple sclerosis (principal); N17.9 Acute kidney failure, unspecified; J96.21 Acute and chronic respiratory failure with hypoxia; M62.81 Muscle weakness (generalized); R54 Age-related physical debility; R26.2 Difficulty in walking, not elsewhere classified
CPT/HCPCS: 36415; 80048; 85025

== ENCOUNTER → 2022-05-17 | Outpatient (REF) | payer MEDICAID, SELFPAY ==
[2022-05-17 09:42] LABS: Absolute Lymphocyte Count 1.57 X10^3/uL (0.83-4.51); Absolute Neutrophil Count 4.6 X10^3/uL (2.0-7.7); Basophil% 1.3 % (0-1); Eosinophil# 0.42 X10^3/uL; Eosinophils% 5.6 % (0-5); Hematocrit 43.8 % (37-47); Lymphocyte # 1.57 X10^3/ul (0.83-4.51); Lymphocyte % 20.8 % (19-41); Mean Corp Hgb Conc 29.7 g/dL (32-36); Mean Corpuscular Hgb 27.1 pg (27.0-32.0); Mean Corpuscular Volume 91.4 fL (81-99); Mean Platelet Vol. 9.2 fl (6.2-12.0); Monocyte# 0.85 X10^3/uL; Monocyte% 11.2 % (0-10); NRBC Flagged by Analyzer 0 % (0-5); Neutrophil # 4.59 X10^3/uL (2.7-7.7); Neutrophil % 60.7 % (47-70); Platelet Count 503 K/mm3 (150-450); RBC Distribution Width SD 50.4 fl (35.1-43.9); Red Blood Count 4.79 M/mm3 (4.2-5.4); White Blood Count 7.6 K/mm3 (4.4-11.0)
[2022-05-17 10:07] LABS: Anion Gap 8 (5-15); BUN 30 mg/dL (7-18); BUN/Creat Ratio 45.3 RATIO (10-20); Calcium,Total 9.7 mg/dL (8.5-10.1); Chloride 110 mmol/L (98-107); Creatinine, Serum 0.66 mg/dL (0.55-1.02); EST Glomerular Filtration Rate 95 mL/min (>60); Est Glom Filt Rate - Afr Amer 116 mL/min (>60); Glucose 109 mg/dL (74-106); Sodium Level 144 mmol/L (136-145)
== END | disposition home or self-care (01) ==
LOC: OLS.WHLEAS 05:00
PROVIDERS: PCP Family Medicine; Visit Provider Internal Medicine
DX: G35 Multiple sclerosis (principal); N17.9 Acute kidney failure, unspecified; J96.21 Acute and chronic respiratory failure with hypoxia; M62.81 Muscle weakness (generalized); R54 Age-related physical debility; R26.2 Difficulty in walking, not elsewhere classified
CPT/HCPCS: 36415; 80048; 85025

== ENCOUNTER → 2022-05-27 | Outpatient (REF) | payer MEDICAID, SELFPAY ==
[2022-05-27 09:00] LABS: Absolute Lymphocyte Count 1.33 X10^3/uL (0.83-4.51); Absolute Neutrophil Count 19.9 X10^3/uL (2.0-7.7); Basophil% 0.4 % (0-1); Differential Indicated SCAN CRITERIA MET; Eosinophil# 0.02 X10^3/uL; Eosinophils% 0.1 % (0-5); Hematocrit 40.7 % (37-47); Hemoglobin 12.9 g/dL (12.0-15.0); Lymphocyte # 1.33 X10^3/ul (0.83-4.51); Lymphocyte % 5.7 % (19-41); Mean Corp Hgb Conc 31.7 g/dL (32-36); Mean Corpuscular Hgb 27.9 pg (27.0-32.0); Mean Corpuscular Volume 88.1 fL (81-99); Mean Platelet Vol. 8.6 fl (6.2-12.0); Monocyte% 7.8 % (0-10); NRBC Flagged by Analyzer 0 % (0-5); Neutrophil # 19.88 X10^3/uL (2.7-7.7); Neutrophil % 85.7 % (47-70); POSITIVE DIFFERENTIAL YES; Platelet Count 468 K/mm3 (150-450); RBC Distribution Width CV 14.9 % (11.6-14.6); RBC Distribution Width SD 48.1 fl (35.1-43.9); Red Blood Count 4.62 M/mm3 (4.2-5.4); White Blood Count 23.2 K/mm3 (4.4-11.0)
[2022-05-27 09:27] LABS: Anion Gap 11 (5-15); BUN 21 mg/dL (7-18); BUN/Creat Ratio 23.1 RATIO (10-20); Calcium,Total 9.4 mg/dL (8.5-10.1); Chloride 106 mmol/L (98-107); Creatinine, Serum 0.91 mg/dL (0.55-1.02); EST Glomerular Filtration Rate 66 mL/min (>60); Est Glom Filt Rate - Afr Amer 80 mL/min (>60); Glucose 196 mg/dL (74-106); Potassium 3.3 mmol/L (3.5-5.1); Sodium Level 139 mmol/L (136-145); Troponin-I HS 7 pg/mL (3.0-54.0)
[2022-05-31 13:48] LABS: Pathologist Review Reviewed
== END | disposition home or self-care (01) ==
LOC: OLS.WHLEAS 05:00
PROVIDERS: PCP Family Medicine; Visit Provider Internal Medicine
DX: R07.9 Chest pain, unspecified (principal); G35 Multiple sclerosis; N17.9 Acute kidney failure, unspecified; J96.21 Acute and chronic respiratory failure with hypoxia; M62.81 Muscle weakness (generalized); R54 Age-related physical debility; R26.2 Difficulty in walking, not elsewhere classified
CPT/HCPCS: 36415; 80048; 84484; 85025

== ENCOUNTER → 2022-05-28 | Outpatient (REF) | payer MEDICAID, SELFPAY ==
[2022-05-29 09:59] LABS: Color, Urine Yellow (Yellow); Glucose, Dipstick Normal (Normal); Ketone-Dipstick Negative (Negative); Leukocyte Esterase-Dipstick 500 /ul (Negative); Nitrite-Dipstick Positive (Negative); Occult Blood-Urine 25 /ul (Negative); Protein-Dipstick 30 mg/dl (Negative); Specific Gravity, Urine 1.025 (1.002-1.030); Urine Bilirubin Dipstick Negative (Negative); Urine Clarity Cloudy (Clear); Urine Urobilinogen Normal (Normal)
== END | disposition home or self-care (01) ==
LOC: OLS.WHLEAS 09:13
PROVIDERS: PCP Family Medicine; Visit Provider Internal Medicine
DX: R50.9 Fever, unspecified (principal); G35 Multiple sclerosis; N17.9 Acute kidney failure, unspecified; J96.21 Acute and chronic respiratory failure with hypoxia; M62.81 Muscle weakness (generalized); R54 Age-related physical debility; R26.2 Difficulty in walking, not elsewhere classified
CPT/HCPCS: 81002; 87077; 87086; 87088; 87186

== ENCOUNTER → 2022-05-31 | Outpatient (REF) | payer MEDICAID, SELFPAY ==
[2022-05-31 10:36] LABS: Absolute Lymphocyte Count 1.39 X10^3/uL (0.83-4.51); Absolute Neutrophil Count 7.3 X10^3/uL (2.0-7.7); Eosinophil# 0.48 X10^3/uL; Eosinophils% 4.6 % (0-5); Hemoglobin 12.5 g/dL (12.0-15.0); Lymphocyte # 1.39 X10^3/ul (0.83-4.51); Lymphocyte % 13.3 % (19-41); Mean Corp Hgb Conc 30.5 g/dL (32-36); Mean Corpuscular Hgb 27.8 pg (27.0-32.0); Mean Corpuscular Volume 91.3 fL (81-99); Mean Platelet Vol. 8.8 fl (6.2-12.0); Monocyte# 1.04 X10^3/uL; NRBC Flagged by Analyzer 0 % (0-5); Neutrophil # 7.29 X10^3/uL (2.7-7.7); Neutrophil % 69.9 % (47-70); Platelet Count 605 K/mm3 (150-450); RBC Distribution Width CV 14.6 % (11.6-14.6); RBC Distribution Width SD 49.5 fl (35.1-43.9); Red Blood Count 4.49 M/mm3 (4.2-5.4); White Blood Count 10.4 K/mm3 (4.4-11.0)
[2022-05-31 11:06] LABS: Anion Gap 10 (5-15); BUN 22 mg/dL (7-18); Calcium,Total 10.1 mg/dL (8.5-10.1); Chloride 106 mmol/L (98-107); Creatinine, Serum 0.51 mg/dL (0.55-1.02); EST Glomerular Filtration Rate 128 mL/min (>60); Est Glom Filt Rate - Afr Amer 155 mL/min (>60); Glucose 74 mg/dL (74-106); Sodium Level 141 mmol/L (136-145)
== END | disposition home or self-care (01) ==
LOC: OLS.WHLEAS 04:00
PROVIDERS: PCP Family Medicine; Visit Provider Internal Medicine
DX: G35 Multiple sclerosis (principal); N17.9 Acute kidney failure, unspecified; J96.21 Acute and chronic respiratory failure with hypoxia
CPT/HCPCS: 36415; 80048; 85025

== ENCOUNTER → 2022-06-01 | Outpatient (REF) | payer MEDICAID, SELFPAY ==
[2022-06-01 07:40] LABS: Potassium 3.9 mmol/L (3.5-5.1)
== END | disposition home or self-care (01) ==
LOC: OLS.WHLEAS 05:00
PROVIDERS: PCP Family Medicine; Visit Provider Internal Medicine
DX: G35 Multiple sclerosis (principal); N17.9 Acute kidney failure, unspecified; J96.21 Acute and chronic respiratory failure with hypoxia; M62.81 Muscle weakness (generalized); R54 Age-related physical debility; R26.2 Difficulty in walking, not elsewhere classified; E87.6 Hypokalemia
CPT/HCPCS: 36415; 84132

== ENCOUNTER → 2022-06-03 | Outpatient (REF) | payer MEDICAID, SELFPAY ==
[2022-06-03 07:53] LABS: Anion Gap 7 (5-15); BUN 22 mg/dL (7-18); BUN/Creat Ratio 38.7 RATIO (10-20); Calcium,Total 9.7 mg/dL (8.5-10.1); Chloride 106 mmol/L (98-107); Creatinine, Serum 0.57 mg/dL (0.55-1.02); EST Glomerular Filtration Rate 114 mL/min (>60); Est Glom Filt Rate - Afr Amer 138 mL/min (>60); Glucose 116 mg/dL (74-106); Potassium 4.1 mmol/L (3.5-5.1); Sodium Level 139 mmol/L (136-145)
== END | disposition home or self-care (01) ==
LOC: OLS.WHLEAS 04:00
PROVIDERS: PCP Family Medicine; Visit Provider Internal Medicine
DX: G35 Multiple sclerosis (principal); N17.9 Acute kidney failure, unspecified; J96.21 Acute and chronic respiratory failure with hypoxia; M62.81 Muscle weakness (generalized); R54 Age-related physical debility; R26.2 Difficulty in walking, not elsewhere classified
CPT/HCPCS: 36415; 80048

== ENCOUNTER → 2022-06-14 | Outpatient (REF) | payer MEDICAID, SELFPAY ==
[2022-06-14 09:55] LABS: Absolute Lymphocyte Count 1.27 X10^3/uL (0.83-4.51); Absolute Neutrophil Count 4.5 X10^3/uL (2.0-7.7); Basophil# 0.09 X10^3/uL; Basophil% 1.3 % (0-1); Eosinophil# 0.28 X10^3/uL; Eosinophils% 3.9 % (0-5); Hematocrit 41.6 % (37-47); Hemoglobin 12.8 g/dL (12.0-15.0); Lymphocyte # 1.27 X10^3/ul (0.83-4.51); Lymphocyte % 17.7 % (19-41); Mean Corp Hgb Conc 30.8 g/dL (32-36); Mean Corpuscular Hgb 27.8 pg (27.0-32.0); Mean Corpuscular Volume 90.4 fL (81-99); Monocyte# 0.96 X10^3/uL; Monocyte% 13.4 % (0-10); NRBC Flagged by Analyzer 0 % (0-5); Neutrophil # 4.54 X10^3/uL (2.7-7.7); Platelet Count 536 K/mm3 (150-450); RBC Distribution Width CV 14.7 % (11.6-14.6); RBC Distribution Width SD 49.1 fl (35.1-43.9); White Blood Count 7.2 K/mm3 (4.4-11.0)
[2022-06-14 10:12] LABS: Anion Gap 6 (5-15); BUN 32 mg/dL (7-18); BUN/Creat Ratio 49.2 RATIO (10-20); Calcium,Total 9.5 mg/dL (8.5-10.1); Chloride 111 mmol/L (98-107); Creatinine, Serum 0.65 mg/dL (0.55-1.02); EST Glomerular Filtration Rate 97 mL/min (>60); Est Glom Filt Rate - Afr Amer 118 mL/min (>60); Glucose 123 mg/dL (74-106); Potassium 4.2 mmol/L (3.5-5.1); Sodium Level 143 mmol/L (136-145)
== END | disposition home or self-care (01) ==
LOC: OLS.WHLEAS 05:25
PROVIDERS: PCP Family Medicine; Visit Provider Family Medicine
DX: G35 Multiple sclerosis (principal); N17.9 Acute kidney failure, unspecified; J96.21 Acute and chronic respiratory failure with hypoxia; M62.81 Muscle weakness (generalized); R54 Age-related physical debility; R26.2 Difficulty in walking, not elsewhere classified
CPT/HCPCS: 36415; 80048; 85025

== ENCOUNTER → 2022-06-28 | Outpatient (REF) | payer MEDICAID, SELFPAY ==
[2022-06-28 10:22] LABS: Absolute Lymphocyte Count 1.41 X10^3/uL (0.83-4.51); Absolute Neutrophil Count 3.8 X10^3/uL (2.0-7.7); Basophil# 0.11 X10^3/uL; Basophil% 1.7 % (0-1); Eosinophil# 0.45 X10^3/uL; Eosinophils% 6.8 % (0-5); Hematocrit 42.8 % (37-47); Hemoglobin 12.8 g/dL (12.0-15.0); Lymphocyte # 1.41 X10^3/ul (0.83-4.51); Lymphocyte % 21.2 % (19-41); Mean Corp Hgb Conc 29.9 g/dL (32-36); Mean Corpuscular Hgb 27.1 pg (27.0-32.0); Mean Corpuscular Volume 90.7 fL (81-99); Monocyte# 0.83 X10^3/uL; Monocyte% 12.5 % (0-10); NRBC Flagged by Analyzer 0 % (0-5); Neutrophil % 56.9 % (47-70); Platelet Count 481 K/mm3 (150-450); RBC Distribution Width CV 14.6 % (11.6-14.6); RBC Distribution Width SD 48.6 fl (35.1-43.9); Red Blood Count 4.72 M/mm3 (4.2-5.4); White Blood Count 6.7 K/mm3 (4.4-11.0)
[2022-06-28 10:38] LABS: Anion Gap 10 (5-15); BUN 26 mg/dL (7-18); BUN/Creat Ratio 39.1 RATIO (10-20); Calcium,Total 9.4 mg/dL (8.5-10.1); Chloride 108 mmol/L (98-107); Creatinine, Serum 0.66 mg/dL (0.55-1.02); EST Glomerular Filtration Rate 95 mL/min (>60); Est Glom Filt Rate - Afr Amer 115 mL/min (>60); Glucose 117 mg/dL (74-106); Sodium Level 142 mmol/L (136-145)
== END | disposition home or self-care (01) ==
LOC: OLS.WHLEAS 05:45
PROVIDERS: PCP Family Medicine; Visit Provider Family Medicine
DX: G35 Multiple sclerosis (principal); N17.9 Acute kidney failure, unspecified; J96.21 Acute and chronic respiratory failure with hypoxia; M62.81 Muscle weakness (generalized); R54 Age-related physical debility; R26.2 Difficulty in walking, not elsewhere classified
CPT/HCPCS: 36415; 80048; 85025

== ENCOUNTER → 2022-07-12 | Outpatient (REF) | payer MEDICAID, SELFPAY ==
[2022-07-12 11:37] LABS: Absolute Lymphocyte Count 1.16 X10^3/uL (0.83-4.51); Absolute Neutrophil Count 5.3 X10^3/uL (2.0-7.7); Basophil# 0.11 X10^3/uL; Basophil% 1.4 % (0-1); Eosinophil# 0.33 X10^3/uL; Eosinophils% 4.3 % (0-5); Hematocrit 44.1 % (37-47); Hemoglobin 13.4 g/dL (12.0-15.0); Lymphocyte # 1.16 X10^3/ul (0.83-4.51); Mean Corp Hgb Conc 30.4 g/dL (32-36); Mean Corpuscular Hgb 26.9 pg (27.0-32.0); Mean Corpuscular Volume 88.4 fL (81-99); Mean Platelet Vol. 8.6 fl (6.2-12.0); Monocyte# 0.76 X10^3/uL; Monocyte% 9.8 % (0-10); NRBC Flagged by Analyzer 0 % (0-5); Neutrophil # 5.34 X10^3/uL (2.7-7.7); Platelet Count 491 K/mm3 (150-450); RBC Distribution Width CV 14.4 % (11.6-14.6); RBC Distribution Width SD 46.5 fl (35.1-43.9); Red Blood Count 4.99 M/mm3 (4.2-5.4); White Blood Count 7.7 K/mm3 (4.4-11.0)
[2022-07-12 12:20] LABS: Anion Gap 8 (5-15); BUN 27 mg/dL (7-18); BUN/Creat Ratio 36.2 RATIO (10-20); Calcium,Total 9.7 mg/dL (8.5-10.1); Chloride 107 mmol/L (98-107); Creatinine, Serum 0.74 mg/dL (0.55-1.02); EST Glomerular Filtration Rate 83 mL/min (>60); Est Glom Filt Rate - Afr Amer 101 mL/min (>60); Glucose 148 mg/dL (74-106); Potassium 3.9 mmol/L (3.5-5.1); Sodium Level 142 mmol/L (136-145)
== END | disposition home or self-care (01) ==
LOC: OLS.WHLEAS 05:00
PROVIDERS: PCP Family Medicine; Visit Provider Family Medicine
DX: G35 Multiple sclerosis (principal); N17.9 Acute kidney failure, unspecified; J96.21 Acute and chronic respiratory failure with hypoxia; M62.81 Muscle weakness (generalized); R54 Age-related physical debility; R26.2 Difficulty in walking, not elsewhere classified
CPT/HCPCS: 36415; 80048; 85025

== ENCOUNTER → 2022-07-13 | Outpatient (REF) | payer MEDICAID, SELFPAY ==
[2022-07-13 10:10] LABS: Hemoglobin A1c 5.8 % (3.8-5.6)
== END | disposition home or self-care (01) ==
LOC: OLS.WHLEAS 05:00
PROVIDERS: PCP Family Medicine; Visit Provider Internal Medicine
DX: J96.21 Acute and chronic respiratory failure with hypoxia (principal); G35 Multiple sclerosis; N17.9 Acute kidney failure, unspecified; M62.81 Muscle weakness (generalized); Z79.899 Other long term (current) drug therapy
CPT/HCPCS: 36415; 83036

== ENCOUNTER → 2022-07-26 | Outpatient (REF) | payer MEDICAID, SELFPAY ==
[2022-07-26 10:08] LABS: Absolute Lymphocyte Count 1.12 X10^3/uL (0.83-4.51); Absolute Neutrophil Count 4.2 X10^3/uL (2.0-7.7); Basophil# 0.11 X10^3/uL; Basophil% 1.7 % (0-1); Eosinophil# 0.42 X10^3/uL; Eosinophils% 6.3 % (0-5); Hematocrit 45.1 % (37-47); Hemoglobin 13.4 g/dL (12.0-15.0); Lymphocyte # 1.12 X10^3/ul (0.83-4.51); Lymphocyte % 16.9 % (19-41); Mean Corp Hgb Conc 29.7 g/dL (32-36); Mean Corpuscular Hgb 26.9 pg (27.0-32.0); Mean Corpuscular Volume 90.6 fL (81-99); Mean Platelet Vol. 8.9 fl (6.2-12.0); Monocyte# 0.76 X10^3/uL; Monocyte% 11.5 % (0-10); NRBC Flagged by Analyzer 0 % (0-5); Neutrophil # 4.15 X10^3/uL (2.7-7.7); Neutrophil % 62.5 % (47-70); Platelet Count 464 K/mm3 (150-450); RBC Distribution Width CV 14.5 % (11.6-14.6); RBC Distribution Width SD 48.2 fl (35.1-43.9); Red Blood Count 4.98 M/mm3 (4.2-5.4); White Blood Count 6.6 K/mm3 (4.4-11.0)
[2022-07-26 10:33] LABS: Anion Gap 9 (5-15); BUN 32 mg/dL (7-18); BUN/Creat Ratio 48.5 RATIO (10-20); Calcium,Total 9.7 mg/dL (8.5-10.1); Chloride 109 mmol/L (98-107); Creatinine, Serum 0.66 mg/dL (0.55-1.02); EST Glomerular Filtration Rate 96 mL/min (>60); Est Glom Filt Rate - Afr Amer 116 mL/min (>60); Glucose 110 mg/dL (74-106); Potassium 4.1 mmol/L (3.5-5.1); Sodium Level 143 mmol/L (136-145)
== END | disposition home or self-care (01) ==
LOC: OLS.WHLEAS 05:00
PROVIDERS: PCP Family Medicine; Visit Provider Internal Medicine
DX: G35 Multiple sclerosis (principal); N17.9 Acute kidney failure, unspecified; J96.21 Acute and chronic respiratory failure with hypoxia; M62.81 Muscle weakness (generalized); R54 Age-related physical debility; R26.2 Difficulty in walking, not elsewhere classified
CPT/HCPCS: 36415; 80048; 85025

== ENCOUNTER → 2022-08-09 | Outpatient (REF) | payer MEDICAID, SELFPAY ==
[2022-08-09 09:04] LABS: Absolute Lymphocyte Count 1.01 X10^3/uL (0.83-4.51); Absolute Neutrophil Count 5.8 X10^3/uL (2.0-7.7); Basophil# 0.08 X10^3/uL; Eosinophil# 0.48 X10^3/uL; Eosinophils% 5.8 % (0-5); Hematocrit 44.3 % (37-47); Hemoglobin 13.3 g/dL (12.0-15.0); Lymphocyte # 1.01 X10^3/ul (0.83-4.51); Lymphocyte % 12.2 % (19-41); Mean Corpuscular Hgb 26.8 pg (27.0-32.0); Mean Corpuscular Volume 89.3 fL (81-99); Monocyte# 0.89 X10^3/uL; Monocyte% 10.8 % (0-10); NRBC Flagged by Analyzer 0 % (0-5); Neutrophil # 5.75 X10^3/uL (2.7-7.7); Neutrophil % 69.6 % (47-70); Platelet Count 463 K/mm3 (150-450); RBC Distribution Width CV 14.2 % (11.6-14.6); RBC Distribution Width SD 46.2 fl (35.1-43.9); Red Blood Count 4.96 M/mm3 (4.2-5.4); White Blood Count 8.3 K/mm3 (4.4-11.0)
[2022-08-09 09:20] LABS: Anion Gap 9 (5-15); BUN 24 mg/dL (7-18); BUN/Creat Ratio 38.2 RATIO (10-20); Calcium,Total 9.5 mg/dL (8.5-10.1); Chloride 106 mmol/L (98-107); Creatinine, Serum 0.63 mg/dL (0.55-1.02); EST Glomerular Filtration Rate 101 mL/min (>60); Est Glom Filt Rate - Afr Amer 122 mL/min (>60); Glucose 117 mg/dL (74-106); Potassium 4.1 mmol/L (3.5-5.1); Sodium Level 138 mmol/L (136-145)
== END | disposition home or self-care (01) ==
LOC: OLS.WHLEAS 05:00
PROVIDERS: PCP Family Medicine; Visit Provider Internal Medicine
DX: G35 Multiple sclerosis (principal); N17.9 Acute kidney failure, unspecified; J96.21 Acute and chronic respiratory failure with hypoxia; M62.81 Muscle weakness (generalized); R54 Age-related physical debility; R26.2 Difficulty in walking, not elsewhere classified
CPT/HCPCS: 36415; 80048; 85025

== ENCOUNTER → 2022-08-23 | Outpatient (REF) | payer MEDICAID, SELFPAY ==
[2022-08-23 08:50] LABS: Absolute Lymphocyte Count 1.01 X10^3/uL (0.83-4.51); Absolute Neutrophil Count 4.6 X10^3/uL (2.0-7.7); Basophil# 0.11 X10^3/uL; Basophil% 1.6 % (0-1); Eosinophils% 5.7 % (0-5); Hematocrit 44.9 % (37-47); Hemoglobin 13.7 g/dL (12.0-15.0); Lymphocyte # 1.01 X10^3/ul (0.83-4.51); Lymphocyte % 14.4 % (19-41); Mean Corp Hgb Conc 30.5 g/dL (32-36); Mean Corpuscular Volume 88.4 fL (81-99); Mean Platelet Vol. 9.1 fl (6.2-12.0); Monocyte# 0.88 X10^3/uL; Monocyte% 12.5 % (0-10); NRBC Flagged by Analyzer 0 % (0-5); Neutrophil # 4.58 X10^3/uL (2.7-7.7); Neutrophil % 65.1 % (47-70); Platelet Count 504 K/mm3 (150-450); RBC Distribution Width CV 14.1 % (11.6-14.6); RBC Distribution Width SD 45.2 fl (35.1-43.9); Red Blood Count 5.08 M/mm3 (4.2-5.4)
[2022-08-23 09:06] LABS: Anion Gap 9 (5-15); BUN 23 mg/dL (7-18); Calcium,Total 9.5 mg/dL (8.5-10.1); Chloride 106 mmol/L (98-107); EST Glomerular Filtration Rate 106 mL/min (>60); Est Glom Filt Rate - Afr Amer 128 mL/min (>60); Glucose 129 mg/dL (74-106); Potassium 4.1 mmol/L (3.5-5.1); Sodium Level 141 mmol/L (136-145)
== END | disposition home or self-care (01) ==
LOC: OLS.WHLEAS 05:00
PROVIDERS: PCP Family Medicine; Visit Provider Family Medicine
DX: G35 Multiple sclerosis (principal); N17.9 Acute kidney failure, unspecified; J96.21 Acute and chronic respiratory failure with hypoxia; M62.81 Muscle weakness (generalized)
CPT/HCPCS: 36415; 80048; 85025

== ENCOUNTER → 2022-09-06 | Outpatient (REF) | payer MEDICAID, SELFPAY ==
[2022-09-06 08:45] LABS: Absolute Lymphocyte Count 0.97 X10^3/uL (0.83-4.51); Absolute Neutrophil Count 6.2 X10^3/uL (2.0-7.7); Basophil# 0.09 X10^3/uL; Eosinophil# 0.39 X10^3/uL; Eosinophils% 4.5 % (0-5); Hematocrit 44.3 % (37-47); Hemoglobin 13.6 g/dL (12.0-15.0); Lymphocyte # 0.97 X10^3/ul (0.83-4.51); Lymphocyte % 11.3 % (19-41); Mean Corp Hgb Conc 30.7 g/dL (32-36); Mean Corpuscular Hgb 26.9 pg (27.0-32.0); Mean Corpuscular Volume 87.7 fL (81-99); Mean Platelet Vol. 8.4 fl (6.2-12.0); Monocyte# 0.89 X10^3/uL; Monocyte% 10.4 % (0-10); NRBC Flagged by Analyzer 0 % (0-5); Neutrophil % 72.2 % (47-70); Platelet Count 484 K/mm3 (150-450); RBC Distribution Width CV 14.3 % (11.6-14.6); RBC Distribution Width SD 45.9 fl (35.1-43.9); Red Blood Count 5.05 M/mm3 (4.2-5.4); White Blood Count 8.6 K/mm3 (4.4-11.0)
[2022-09-06 09:01] LABS: Anion Gap 6 (5-15); BUN 20 mg/dL (7-18); BUN/Creat Ratio 30.4 RATIO (10-20); Calcium,Total 9.4 mg/dL (8.5-10.1); Chloride 107 mmol/L (98-107); Creatinine, Serum 0.66 mg/dL (0.55-1.02); EST Glomerular Filtration Rate 96 mL/min (>60); Est Glom Filt Rate - Afr Amer 116 mL/min (>60); Glucose 112 mg/dL (74-106); Potassium 3.7 mmol/L (3.5-5.1); Sodium Level 138 mmol/L (136-145)
== END | disposition home or self-care (01) ==
LOC: OLS.WHLEAS 05:00
PROVIDERS: PCP Family Medicine; Visit Provider Family Medicine
DX: G35 Multiple sclerosis (principal); N17.9 Acute kidney failure, unspecified; J96.21 Acute and chronic respiratory failure with hypoxia; M62.81 Muscle weakness (generalized); R54 Age-related physical debility; R26.2 Difficulty in walking, not elsewhere classified
CPT/HCPCS: 36415; 80048; 85025

== ENCOUNTER → 2022-09-20 | Outpatient (REF) | payer MEDICAID, SELFPAY ==
[2022-09-20 09:22] LABS: Absolute Neutrophil Count 7.2 X10^3/uL (2.0-7.7); Basophil# 0.11 X10^3/uL; Basophil% 1.1 % (0-1); Eosinophil# 0.53 X10^3/uL; Eosinophils% 5.3 % (0-5); Hematocrit 43.9 % (37-47); Hemoglobin 13.4 g/dL (12.0-15.0); Mean Corp Hgb Conc 30.5 g/dL (32-36); Mean Corpuscular Volume 88.3 fL (81-99); Mean Platelet Vol. 8.7 fl (6.2-12.0); Monocyte# 0.93 X10^3/uL; Monocyte% 9.3 % (0-10); NRBC Flagged by Analyzer 0 % (0-5); Neutrophil # 7.16 X10^3/uL (2.7-7.7); Neutrophil % 71.4 % (47-70); Platelet Count 533 K/mm3 (150-450); RBC Distribution Width CV 14.2 % (11.6-14.6); RBC Distribution Width SD 45.1 fl (35.1-43.9); Red Blood Count 4.97 M/mm3 (4.2-5.4)
[2022-09-20 09:44] LABS: Anion Gap 4 (5-15); BUN 25 mg/dL (7-18); BUN/Creat Ratio 41.7 RATIO (10-20); Calcium,Total 9.4 mg/dL (8.5-10.1); Chloride 110 mmol/L (98-107); EST Glomerular Filtration Rate 107 mL/min (>60); Est Glom Filt Rate - Afr Amer 129 mL/min (>60); Glucose 129 mg/dL (74-106); Sodium Level 139 mmol/L (136-145)
== END | disposition home or self-care (01) ==
LOC: OLS.WHLEAS 05:00
PROVIDERS: PCP Family Medicine; Visit Provider Family Medicine
DX: G35 Multiple sclerosis (principal); N17.9 Acute kidney failure, unspecified; J96.21 Acute and chronic respiratory failure with hypoxia; M62.81 Muscle weakness (generalized); R54 Age-related physical debility; R26.2 Difficulty in walking, not elsewhere classified
CPT/HCPCS: 36415; 80048; 85025

== ENCOUNTER → 2022-10-04 | Outpatient (REF) | payer MEDICAID, SELFPAY ==
[2022-10-04 08:50] LABS: Absolute Lymphocyte Count 1.09 X10^3/uL (0.83-4.51); Absolute Neutrophil Count 6.5 X10^3/uL (2.0-7.7); Basophil# 0.11 X10^3/uL; Basophil% 1.2 % (0-1); Eosinophil# 0.41 X10^3/uL; Eosinophils% 4.5 % (0-5); Hemoglobin 14.4 g/dL (12.0-15.0); Lymphocyte # 1.09 X10^3/ul (0.83-4.51); Mean Corp Hgb Conc 30.6 g/dL (32-36); Mean Corpuscular Hgb 26.4 pg (27.0-32.0); Mean Corpuscular Volume 86.1 fL (81-99); Mean Platelet Vol. 8.4 fl (6.2-12.0); Monocyte# 0.91 X10^3/uL; NRBC Flagged by Analyzer 0 % (0-5); Neutrophil # 6.47 X10^3/uL (2.7-7.7); Neutrophil % 71.3 % (47-70); Platelet Count 566 K/mm3 (150-450); RBC Distribution Width CV 14.2 % (11.6-14.6); RBC Distribution Width SD 44.2 fl (35.1-43.9); Red Blood Count 5.46 M/mm3 (4.2-5.4); White Blood Count 9.1 K/mm3 (4.4-11.0)
[2022-10-04 09:14] LABS: Anion Gap 8 (5-15); BUN 23 mg/dL (7-18); BUN/Creat Ratio 34.6 RATIO (10-20); Calcium,Total 9.8 mg/dL (8.5-10.1); Chloride 107 mmol/L (98-107); Creatinine, Serum 0.66 mg/dL (0.55-1.02); EST Glomerular Filtration Rate 95 mL/min (>60); Est Glom Filt Rate - Afr Amer 115 mL/min (>60); Glucose 123 mg/dL (74-106); Potassium 3.9 mmol/L (3.5-5.1); Sodium Level 140 mmol/L (136-145)
== END | disposition home or self-care (01) ==
LOC: OLS.WHLEAS 05:00
PROVIDERS: PCP Family Medicine; Visit Provider Family Medicine
DX: G35 Multiple sclerosis (principal); N17.9 Acute kidney failure, unspecified; J96.21 Acute and chronic respiratory failure with hypoxia; M62.81 Muscle weakness (generalized); R54 Age-related physical debility; R26.2 Difficulty in walking, not elsewhere classified
CPT/HCPCS: 36415; 80048; 85025

== ENCOUNTER → 2022-10-18 | Outpatient (REF) | payer MEDICAID, SELFPAY ==
[2022-10-18 07:04] LABS: Absolute Lymphocyte Count 1.14 X10^3/uL (0.83-4.51); Absolute Neutrophil Count 6.5 X10^3/uL (2.0-7.7); Basophil% 1.1 % (0-1); Eosinophil# 0.47 X10^3/uL; Hematocrit 44.6 % (37-47); Hemoglobin 13.6 g/dL (12.0-15.0); Lymphocyte # 1.14 X10^3/ul (0.83-4.51); Lymphocyte % 12.1 % (19-41); Mean Corp Hgb Conc 30.5 g/dL (32-36); Mean Corpuscular Hgb 26.7 pg (27.0-32.0); Mean Corpuscular Volume 87.5 fL (81-99); Mean Platelet Vol. 8.6 fl (6.2-12.0); Monocyte# 1.05 X10^3/uL; Monocyte% 11.1 % (0-10); NRBC Flagged by Analyzer 0 % (0-5); Neutrophil # 6.54 X10^3/uL (2.7-7.7); Neutrophil % 69.3 % (47-70); Platelet Count 622 K/mm3 (150-450); RBC Distribution Width CV 14.3 % (11.6-14.6); RBC Distribution Width SD 46.2 fl (35.1-43.9); White Blood Count 9.4 K/mm3 (4.4-11.0)
[2022-10-18 07:25] LABS: Anion Gap 8 (5-15); BUN 20 mg/dL (7-18); BUN/Creat Ratio 28.1 RATIO (10-20); Calcium,Total 9.4 mg/dL (8.5-10.1); Chloride 110 mmol/L (98-107); Creatinine, Serum 0.71 mg/dL (0.55-1.02); EST Glomerular Filtration Rate 88 mL/min (>60); Est Glom Filt Rate - Afr Amer 106 mL/min (>60); Glucose 179 mg/dL (74-106); Sodium Level 140 mmol/L (136-145)
== END | disposition home or self-care (01) ==
LOC: OLS.WHLEAS 05:00
PROVIDERS: PCP Family Medicine; Visit Provider Family Medicine
DX: G35 Multiple sclerosis (principal); N17.9 Acute kidney failure, unspecified; J96.21 Acute and chronic respiratory failure with hypoxia; M62.81 Muscle weakness (generalized); R54 Age-related physical debility; R26.2 Difficulty in walking, not elsewhere classified
CPT/HCPCS: 36415; 80048; 85025

== ENCOUNTER → 2022-11-01 | Outpatient (REF) | payer MEDICAID, SELFPAY ==
[2022-11-01 08:26] LABS: Absolute Lymphocyte Count 0.81 X10^3/uL (0.83-4.51); Absolute Neutrophil Count 5.9 X10^3/uL (2.0-7.7); Basophil# 0.08 X10^3/uL; Eosinophil# 0.39 X10^3/uL; Eosinophils% 4.8 % (0-5); Hematocrit 45.1 % (37-47); Hemoglobin 13.3 g/dL (12.0-15.0); Lymphocyte # 0.81 X10^3/ul (0.83-4.51); Mean Corp Hgb Conc 29.5 g/dL (32-36); Mean Corpuscular Hgb 25.8 pg (27.0-32.0); Mean Corpuscular Volume 87.4 fL (81-99); Mean Platelet Vol. 8.9 fl (6.2-12.0); Monocyte% 9.9 % (0-10); NRBC Flagged by Analyzer 0 % (0-5); Neutrophil % 73.2 % (47-70); Platelet Count 467 K/mm3 (150-450); RBC Distribution Width CV 15.1 % (11.6-14.6); RBC Distribution Width SD 47.9 fl (35.1-43.9); Red Blood Count 5.16 M/mm3 (4.2-5.4); White Blood Count 8.1 K/mm3 (4.4-11.0)
[2022-11-01 08:33] LABS: Anion Gap 9 (5-15); BUN 23 mg/dL (7-18); BUN/Creat Ratio 32.7 RATIO (10-20); Calcium,Total 9.3 mg/dL (8.5-10.1); Chloride 107 mmol/L (98-107); EST Glomerular Filtration Rate 89 mL/min (>60); Est Glom Filt Rate - Afr Amer 108 mL/min (>60); Glucose 135 mg/dL (74-106); Potassium 3.9 mmol/L (3.5-5.1); Sodium Level 141 mmol/L (136-145)
== END | disposition home or self-care (01) ==
LOC: OLS.WHLEAS 05:00
PROVIDERS: PCP Family Medicine; Visit Provider Family Medicine
DX: G35 Multiple sclerosis (principal); N17.9 Acute kidney failure, unspecified; J96.21 Acute and chronic respiratory failure with hypoxia; M62.81 Muscle weakness (generalized); R54 Age-related physical debility
CPT/HCPCS: 36415; 80048; 85025

== ENCOUNTER → 2022-11-15 | Outpatient (REF) | payer MEDICAID, SELFPAY ==
[2022-11-15 08:32] LABS: Absolute Lymphocyte Count 1.08 X10^3/uL (0.83-4.51); Absolute Neutrophil Count 8.1 X10^3/uL (2.0-7.7); Basophil% 0.9 % (0-1); Eosinophil# 0.24 X10^3/uL; Eosinophils% 2.2 % (0-5); Hematocrit 48.7 % (37-47); Hemoglobin 14.8 g/dL (12.0-15.0); Lymphocyte # 1.08 X10^3/ul (0.83-4.51); Lymphocyte % 10.1 % (19-41); Mean Corp Hgb Conc 30.4 g/dL (32-36); Mean Corpuscular Hgb 26.7 pg (27.0-32.0); Mean Corpuscular Volume 87.9 fL (81-99); Mean Platelet Vol. 9.1 fl (6.2-12.0); Monocyte# 1.03 X10^3/uL; Monocyte% 9.6 % (0-10); NRBC Flagged by Analyzer 0 % (0-5); Neutrophil # 8.07 X10^3/uL (2.7-7.7); Neutrophil % 75.6 % (47-70); Platelet Count 540 K/mm3 (150-450); RBC Distribution Width CV 15.9 % (11.6-14.6); RBC Distribution Width SD 50.8 fl (35.1-43.9); Red Blood Count 5.54 M/mm3 (4.2-5.4); White Blood Count 10.7 K/mm3 (4.4-11.0)
[2022-11-15 09:02] LABS: Anion Gap 8 (5-15); BUN 27 mg/dL (7-18); BUN/Creat Ratio 35.6 RATIO (10-20); Calcium,Total 9.5 mg/dL (8.5-10.1); Chloride 106 mmol/L (98-107); Creatinine, Serum 0.76 mg/dL (0.55-1.02); EST Glomerular Filtration Rate 81 mL/min (>60); Est Glom Filt Rate - Afr Amer 99 mL/min (>60); Glucose 120 mg/dL (74-106); Potassium 4.1 mmol/L (3.5-5.1); Sodium Level 141 mmol/L (136-145)
== END | disposition home or self-care (01) ==
LOC: OLS.WHLEAS 05:00
PROVIDERS: PCP Family Medicine; Visit Provider Family Medicine
DX: G35 Multiple sclerosis (principal); N17.9 Acute kidney failure, unspecified; J96.21 Acute and chronic respiratory failure with hypoxia; M62.81 Muscle weakness (generalized)
CPT/HCPCS: 36415; 80048; 85025

== ENCOUNTER → 2022-11-29 | Outpatient (REF) | payer MEDICAID, SELFPAY ==
[2022-11-29 09:43] LABS: Absolute Lymphocyte Count 0.94 X10^3/uL (0.83-4.51); Absolute Neutrophil Count 6.1 X10^3/uL (2.0-7.7); Basophil# 0.09 X10^3/uL; Basophil% 1.1 % (0-1); Eosinophil# 0.42 X10^3/uL; Hematocrit 44.2 % (37-47); Hemoglobin 13.5 g/dL (12.0-15.0); Lymphocyte # 0.94 X10^3/ul (0.83-4.51); Lymphocyte % 11.1 % (19-41); Mean Corp Hgb Conc 30.5 g/dL (32-36); Mean Corpuscular Hgb 26.7 pg (27.0-32.0); Mean Corpuscular Volume 87.5 fL (81-99); Mean Platelet Vol. 8.8 fl (6.2-12.0); Monocyte# 0.87 X10^3/uL; Monocyte% 10.3 % (0-10); NRBC Flagged by Analyzer 0 % (0-5); Neutrophil # 6.07 X10^3/uL (2.7-7.7); Neutrophil % 71.9 % (47-70); Platelet Count 479 K/mm3 (150-450); RBC Distribution Width CV 15.7 % (11.6-14.6); RBC Distribution Width SD 49.9 fl (35.1-43.9); Red Blood Count 5.05 M/mm3 (4.2-5.4); White Blood Count 8.4 K/mm3 (4.4-11.0)
[2022-11-29 09:50] LABS: Anion Gap 9 (5-15); BUN 19 mg/dL (7-18); BUN/Creat Ratio 26.3 RATIO (10-20); Calcium,Total 9.4 mg/dL (8.5-10.1); Chloride 106 mmol/L (98-107); Creatinine, Serum 0.72 mg/dL (0.55-1.02); EST Glomerular Filtration Rate 86 mL/min (>60); Est Glom Filt Rate - Afr Amer 104 mL/min (>60); Glucose 137 mg/dL (74-106); Potassium 3.9 mmol/L (3.5-5.1); Sodium Level 138 mmol/L (136-145)
== END | disposition home or self-care (01) ==
LOC: OLS.WHLEAS 05:00
PROVIDERS: PCP Family Medicine; Visit Provider Internal Medicine
DX: G35 Multiple sclerosis (principal); N17.9 Acute kidney failure, unspecified; J96.21 Acute and chronic respiratory failure with hypoxia; M62.81 Muscle weakness (generalized)
CPT/HCPCS: 36415; 80048; 85025

== ENCOUNTER → 2022-12-13 | Outpatient (REF) | payer MEDICAID, SELFPAY ==
[2022-12-13 07:22] LABS: Anion Gap 5 (5-15); BUN 20 mg/dL (7-18); BUN/Creat Ratio 31.7 RATIO (10-20); Calcium,Total 9.2 mg/dL (8.5-10.1); Chloride 108 mmol/L (98-107); Creatinine, Serum 0.63 mg/dL (0.55-1.02); EST Glomerular Filtration Rate 101 mL/min (>60); Est Glom Filt Rate - Afr Amer 122 mL/min (>60); Glucose 150 mg/dL (74-106); Potassium 3.8 mmol/L (3.5-5.1); Sodium Level 139 mmol/L (136-145)
[2022-12-13 08:11] LABS: Absolute Lymphocyte Count 0.84 X10^3/uL (0.83-4.51); Absolute Neutrophil Count 5.4 X10^3/uL (2.0-7.7); Basophil# 0.09 X10^3/uL; Basophil% 1.2 % (0-1); Eosinophil# 0.34 X10^3/uL; Eosinophils% 4.5 % (0-5); Hematocrit 43.2 % (37-47); Hemoglobin 13.2 g/dL (12.0-15.0); Lymphocyte # 0.84 X10^3/ul (0.83-4.51); Lymphocyte % 11.2 % (19-41); Mean Corp Hgb Conc 30.6 g/dL (32-36); Mean Corpuscular Hgb 26.6 pg (27.0-32.0); Mean Corpuscular Volume 87.1 fL (81-99); Mean Platelet Vol. 8.7 fl (6.2-12.0); Monocyte# 0.78 X10^3/uL; Monocyte% 10.4 % (0-10); NRBC Flagged by Analyzer 0 % (0-5); Neutrophil # 5.37 X10^3/uL (2.7-7.7); Neutrophil % 71.5 % (47-70); Platelet Count 502 K/mm3 (150-450); RBC Distribution Width CV 15.9 % (11.6-14.6); RBC Distribution Width SD 49.9 fl (35.1-43.9); Red Blood Count 4.96 M/mm3 (4.2-5.4); White Blood Count 7.5 K/mm3 (4.4-11.0)
== END | disposition home or self-care (01) ==
LOC: OLS.WHLEAS 05:00
PROVIDERS: PCP Family Medicine; Visit Provider Internal Medicine
DX: G35 Multiple sclerosis (principal); N17.9 Acute kidney failure, unspecified; J96.21 Acute and chronic respiratory failure with hypoxia
CPT/HCPCS: 36415; 80048; 85025

== ENCOUNTER → 2022-12-27 | Outpatient (REF) | payer MEDICAID, SELFPAY ==
[2022-12-27 06:59] LABS: Absolute Lymphocyte Count 0.84 X10^3/uL (0.83-4.51); Absolute Neutrophil Count 6.8 X10^3/uL (2.0-7.7); Basophil# 0.12 X10^3/uL; Basophil% 1.3 % (0-1); Eosinophils% 4.3 % (0-5); Hematocrit 44.1 % (37-47); Hemoglobin 13.1 g/dL (12.0-15.0); Lymphocyte # 0.84 X10^3/ul (0.83-4.51); Lymphocyte % 9.1 % (19-41); Mean Corp Hgb Conc 29.7 g/dL (32-36); Mean Corpuscular Hgb 26.4 pg (27.0-32.0); Mean Corpuscular Volume 88.9 fL (81-99); Mean Platelet Vol. 8.9 fl (6.2-12.0); Monocyte# 1.01 X10^3/uL; Monocyte% 10.9 % (0-10); NRBC Flagged by Analyzer 0 % (0-5); Neutrophil # 6.84 X10^3/uL (2.7-7.7); Neutrophil % 73.8 % (47-70); Platelet Count 491 K/mm3 (150-450); RBC Distribution Width CV 15.7 % (11.6-14.6); RBC Distribution Width SD 50.8 fl (35.1-43.9); Red Blood Count 4.96 M/mm3 (4.2-5.4); White Blood Count 9.3 K/mm3 (4.4-11.0)
[2022-12-27 07:20] LABS: Anion Gap 6 (5-15); BUN 24 mg/dL (7-18); BUN/Creat Ratio 32.3 RATIO (10-20); Calcium,Total 9.3 mg/dL (8.5-10.1); Chloride 108 mmol/L (98-107); Creatinine, Serum 0.74 mg/dL (0.55-1.02); EST Glomerular Filtration Rate 84 mL/min (>60); Est Glom Filt Rate - Afr Amer 101 mL/min (>60); Glucose 178 mg/dL (74-106); Potassium 3.9 mmol/L (3.5-5.1); Sodium Level 138 mmol/L (136-145)
== END | disposition home or self-care (01) ==
LOC: OLS.WHLEAS 05:00
PROVIDERS: PCP Family Medicine; Visit Provider Internal Medicine
DX: G35 Multiple sclerosis (principal); N17.9 Acute kidney failure, unspecified; J96.21 Acute and chronic respiratory failure with hypoxia; M62.81 Muscle weakness (generalized)
CPT/HCPCS: 36415; 80048; 85025

== ENCOUNTER → 2023-01-10 | Outpatient (REF) | payer MEDICAID, SELFPAY ==
[2023-01-10 10:26] LABS: Absolute Lymphocyte Count 0.84 X10^3/uL (0.83-4.51); Absolute Neutrophil Count 7.2 X10^3/uL (2.0-7.7); Eosinophil# 0.45 X10^3/uL; Eosinophils% 4.6 % (0-5); Hematocrit 43.1 % (37-47); Hemoglobin 13.4 g/dL (12.0-15.0); Lymphocyte # 0.84 X10^3/ul (0.83-4.51); Lymphocyte % 8.7 % (19-41); Mean Corp Hgb Conc 31.1 g/dL (32-36); Mean Corpuscular Hgb 26.9 pg (27.0-32.0); Mean Corpuscular Volume 86.5 fL (81-99); Mean Platelet Vol. 8.8 fl (6.2-12.0); Monocyte% 10.3 % (0-10); NRBC Flagged by Analyzer 0 % (0-5); Neutrophil # 7.22 X10^3/uL (2.7-7.7); Neutrophil % 74.5 % (47-70); Platelet Count 513 K/mm3 (150-450); RBC Distribution Width CV 15.3 % (11.6-14.6); RBC Distribution Width SD 48.4 fl (35.1-43.9); Red Blood Count 4.98 M/mm3 (4.2-5.4); White Blood Count 9.7 K/mm3 (4.4-11.0)
[2023-01-10 10:40] LABS: Anion Gap 7 (5-15); BUN 23 mg/dL (7-18); BUN/Creat Ratio 36.1 RATIO (10-20); Calcium,Total 9.2 mg/dL (8.5-10.1); Chloride 109 mmol/L (98-107); Creatinine, Serum 0.64 mg/dL (0.55-1.02); EST Glomerular Filtration Rate 100 mL/min (>60); Est Glom Filt Rate - Afr Amer 121 mL/min (>60); Glucose 147 mg/dL (74-106); Potassium 3.9 mmol/L (3.5-5.1); Sodium Level 140 mmol/L (136-145)
== END | disposition home or self-care (01) ==
LOC: OLS.WHLEAS 05:00
PROVIDERS: PCP Family Medicine; Visit Provider Internal Medicine
DX: G35 Multiple sclerosis (principal); N17.9 Acute kidney failure, unspecified; J96.21 Acute and chronic respiratory failure with hypoxia; M62.81 Muscle weakness (generalized)
CPT/HCPCS: 36415; 80048; 85025

== ENCOUNTER → 2023-01-24 | Outpatient (REF) | payer MEDICAID, SELFPAY ==
[2023-01-24 09:44] LABS: Absolute Lymphocyte Count 0.89 X10^3/uL (0.83-4.51); Absolute Neutrophil Count 5.9 X10^3/uL (2.0-7.7); Basophil# 0.09 X10^3/uL; Basophil% 1.1 % (0-1); Eosinophil# 0.41 X10^3/uL; Hematocrit 42.7 % (37-47); Hemoglobin 12.8 g/dL (12.0-15.0); Lymphocyte # 0.89 X10^3/ul (0.83-4.51); Lymphocyte % 10.9 % (19-41); Mean Corpuscular Hgb 26.6 pg (27.0-32.0); Mean Corpuscular Volume 88.8 fL (81-99); NRBC Flagged by Analyzer 0 % (0-5); Neutrophil # 5.86 X10^3/uL (2.7-7.7); Neutrophil % 71.4 % (47-70); Platelet Count 479 K/mm3 (150-450); RBC Distribution Width CV 14.8 % (11.6-14.6); RBC Distribution Width SD 48.3 fl (35.1-43.9); Red Blood Count 4.81 M/mm3 (4.2-5.4); White Blood Count 8.2 K/mm3 (4.4-11.0)
[2023-01-24 10:00] LABS: Anion Gap 7 (5-15); BUN 20 mg/dL (7-18); BUN/Creat Ratio 33.7 RATIO (10-20); Calcium,Total 8.9 mg/dL (8.5-10.1); Chloride 108 mmol/L (98-107); Creatinine, Serum 0.59 mg/dL (0.55-1.02); EST Glomerular Filtration Rate 108 mL/min (>60); Est Glom Filt Rate - Afr Amer 131 mL/min (>60); Glucose 141 mg/dL (74-106); Potassium 3.9 mmol/L (3.5-5.1); Sodium Level 140 mmol/L (136-145)
== END | disposition home or self-care (01) ==
LOC: OLS.WHLEAS 05:00
PROVIDERS: PCP Family Medicine; Visit Provider Nurse Practitioner Adult Health
DX: G35 Multiple sclerosis (principal); N17.9 Acute kidney failure, unspecified; J96.21 Acute and chronic respiratory failure with hypoxia
CPT/HCPCS: 36415; 80048; 85025

== ENCOUNTER → 2023-02-07 | Outpatient (REF) | payer MEDICARE, MEDICAID, SELFPAY ==
[2023-02-07 07:03] LABS: Absolute Lymphocyte Count 0.94 X10^3/uL (0.83-4.51); Absolute Neutrophil Count 6.3 X10^3/uL (2.0-7.7); Basophil% 1.1 % (0-1); Eosinophil# 0.49 X10^3/uL; Eosinophils% 5.5 % (0-5); Hematocrit 44.2 % (37-47); Hemoglobin 13.3 g/dL (12.0-15.0); Lymphocyte # 0.94 X10^3/ul (0.83-4.51); Lymphocyte % 10.5 % (19-41); Mean Corp Hgb Conc 30.1 g/dL (32-36); Mean Corpuscular Hgb 26.7 pg (27.0-32.0); Mean Corpuscular Volume 88.8 fL (81-99); Monocyte# 0.99 X10^3/uL; Monocyte% 11.1 % (0-10); NRBC Flagged by Analyzer 0 % (0-5); Neutrophil # 6.34 X10^3/uL (2.7-7.7); Neutrophil % 70.8 % (47-70); Platelet Count 478 K/mm3 (150-450); RBC Distribution Width CV 14.6 % (11.6-14.6); RBC Distribution Width SD 47.9 fl (35.1-43.9); Red Blood Count 4.98 M/mm3 (4.2-5.4)
[2023-02-07 07:10] LABS: Anion Gap 7 (5-15); BUN 22 mg/dL (7-18); BUN/Creat Ratio 37.3 RATIO (10-20); Calcium,Total 8.9 mg/dL (8.5-10.1); Chloride 110 mmol/L (98-107); Creatinine, Serum 0.59 mg/dL (0.55-1.02); EST Glomerular Filtration Rate 109 mL/min (>60); Est Glom Filt Rate - Afr Amer 132 mL/min (>60); Glucose 160 mg/dL (74-106); Potassium 3.9 mmol/L (3.5-5.1); Sodium Level 141 mmol/L (136-145)
== END | disposition home or self-care (01) ==
LOC: OLS.WHLEAS 05:00
PROVIDERS: PCP Family Medicine; Visit Provider Internal Medicine
DX: G35 Multiple sclerosis (principal)
CPT/HCPCS: 36415; 80048; 85025

== ENCOUNTER → 2023-02-13 | Outpatient (REF) | payer MEDICARE, MEDICAID, SELFPAY ==
[2023-02-13 08:11] LABS: Color, Urine Brown (Yellow); Glucose, Dipstick Normal (Normal); Ketone-Dipstick 5 mg/dl (Negative); Leukocyte Esterase-Dipstick 25 /ul (Negative); Nitrite-Dipstick Positive (Negative); Occult Blood-Urine 250 /ul (Negative); Protein-Dipstick 30 mg/dl (Negative); Specific Gravity, Urine 1.025 (1.002-1.030); Urine Bilirubin Dipstick Negative (Negative); Urine Clarity Cloudy (Clear); Urine Urobilinogen 1 mg/dl (Normal)
== END | disposition home or self-care (01) ==
LOC: OLS.WHLEAS 04:00
PROVIDERS: PCP Family Medicine; Referring Provider Internal Medicine; Visit Provider Internal Medicine
DX: N39.0 Urinary tract infection, site not specified (principal)
CPT/HCPCS: 81002; 87077; 87086; 87088; 87186

== ENCOUNTER → 2023-02-21 | Outpatient (REF) | payer MEDICARE, MEDICAID, SELFPAY ==
[2023-02-21 07:52] LABS: Absolute Lymphocyte Count 0.97 X10^3/uL (0.83-4.51); Absolute Neutrophil Count 8.1 X10^3/uL (2.0-7.7); Basophil# 0.13 X10^3/uL; Basophil% 1.2 % (0-1); Eosinophil# 0.48 X10^3/uL; Eosinophils% 4.4 % (0-5); Hematocrit 45.3 % (37-47); Hemoglobin 13.3 g/dL (12.0-15.0); Lymphocyte # 0.97 X10^3/ul (0.83-4.51); Mean Corp Hgb Conc 29.4 g/dL (32-36); Mean Corpuscular Hgb 26.3 pg (27.0-32.0); Mean Corpuscular Volume 89.5 fL (81-99); Mean Platelet Vol. 9.2 fl (6.2-12.0); Monocyte# 1.06 X10^3/uL; Monocyte% 9.8 % (0-10); NRBC Flagged by Analyzer 0 % (0-5); Neutrophil # 8.08 X10^3/uL (2.7-7.7); Neutrophil % 74.9 % (47-70); Platelet Count 500 K/mm3 (150-450); RBC Distribution Width CV 14.5 % (11.6-14.6); RBC Distribution Width SD 47.6 fl (35.1-43.9); Red Blood Count 5.06 M/mm3 (4.2-5.4); White Blood Count 10.8 K/mm3 (4.4-11.0)
[2023-02-21 08:02] LABS: Anion Gap 8 (5-15); BUN 27 mg/dL (7-18); BUN/Creat Ratio 37.7 RATIO (10-20); Calcium,Total 9.1 mg/dL (8.5-10.1); Chloride 108 mmol/L (98-107); Creatinine, Serum 0.72 mg/dL (0.55-1.02); EST Glomerular Filtration Rate 87 mL/min (>60); Est Glom Filt Rate - Afr Amer 105 mL/min (>60); Glucose 178 mg/dL (74-106); Potassium 3.7 mmol/L (3.5-5.1); Sodium Level 140 mmol/L (136-145)
== END ==
LOC: OLS.WHLEAS 05:00
PROVIDERS: PCP Family Medicine; Visit Provider Nurse Practitioner Adult Health
DX: G35 Multiple sclerosis (principal); N17.9 Acute kidney failure, unspecified; J96.21 Acute and chronic respiratory failure with hypoxia; M62.81 Muscle weakness (generalized)
CPT/HCPCS: 36415; 80048; 85025

== ENCOUNTER → 2023-02-22 | Outpatient (REF) | payer MEDICARE, MEDICAID, SELFPAY | LOC: OLS.WHLEAS 09:34 | PROVIDERS: PCP Family Medicine; Visit Provider Internal Medicine | DX: R19.7 Diarrhea, unspecified (principal) | CPT/HCPCS: 87493 ==

== ENCOUNTER → 2023-05-09 | Outpatient (REF) | payer MEDICARE, MEDICAID, SELFPAY ==
[2023-05-09 09:46] LABS: Absolute Lymphocyte Count 1.09 X10^3/uL (0.83-4.51); Absolute Neutrophil Count 5.5 X10^3/uL (2.0-7.7); Basophil% 1.2 % (0-1); Eosinophil# 0.23 X10^3/uL; Eosinophils% 2.8 % (0-5); Hematocrit 49.5 % (37-47); Hemoglobin 14.7 g/dL (12.0-15.0); Lymphocyte # 1.09 X10^3/ul (0.83-4.51); Lymphocyte % 13.4 % (19-41); Mean Corp Hgb Conc 29.7 g/dL (32-36); Mean Corpuscular Hgb 26.2 pg (27.0-32.0); Mean Corpuscular Volume 88.1 fL (81-99); Mean Platelet Vol. 9.6 fl (6.2-12.0); Monocyte# 1.12 X10^3/uL; Monocyte% 13.8 % (0-10); NRBC Flagged by Analyzer 0 % (0-5); Neutrophil # 5.53 X10^3/uL (2.7-7.7); Neutrophil % 68.1 % (47-70); Platelet Count 553 K/mm3 (150-450); RBC Distribution Width CV 15.6 % (11.6-14.6); RBC Distribution Width SD 49.4 fl (35.1-43.9); Red Blood Count 5.62 M/mm3 (4.2-5.4); White Blood Count 8.1 K/mm3 (4.4-11.0)
[2023-05-09 10:05] LABS: ALB/GLOB Ratio 0.9 RATIO (0.9-2.4); AST(SGOT) 37 U/L (15-37); Alanine Aminotransfer ALT/SGPT 57 U/L (13-56); Albumin, Serum 3.3 g/dL (3.2-5.0); Alkaline Phosphatase 111 U/L (45-117); Anion Gap 8 (5-15); BUN 26 mg/dL (7-18); Calcium,Total 9.6 mg/dL (8.5-10.1); Chloride 107 mmol/L (98-107); Creatinine, Serum 0.68 mg/dL (0.55-1.02); EST Glomerular Filtration Rate 92 mL/min (>60); Est Glom Filt Rate - Afr Amer 111 mL/min (>60); Globulin 3.7 g/dL (2.2-4.2); Glucose 203 mg/dL (74-106); Sodium Level 140 mmol/L (136-145)
== END ==
LOC: OLS.WHLEAS 05:00
PROVIDERS: PCP Family Medicine; Visit Provider Internal Medicine
DX: N17.9 Acute kidney failure, unspecified (principal)
CPT/HCPCS: 36415; 80053; 85025

== ENCOUNTER → 2023-06-06 | Outpatient (REF) | payer MEDICARE, MEDICAID, SELFPAY ==
--- OUTSIDE RECORDS SUMMARY | 2023-06-06 04:55 | XMS RPT_ITS | CCD ---
Author Name Unknown Address [address] [place] [address] Organization [facility] Care Team Providers Care Photovoltaic Technician Name Role Phone No, Physician Unavailable Unavailable Unavailable Unavailable Unavailable Joan Welch Primary Care Provider Mercedes, Physician Primary Care Provider Joan Antunez Primary Care Provider Joan Welch MD Primary Care Provider Joan Welch MD Primary Care Provider JOAN WELCH Primary Care Unavailable WILLARD EPPERSON Attending Unavailabl WILLARD Gonzalez Attending Unavailabl JOAN Salmeron Primary Care Unavailable JOAN WELCH Primary Care Unavailable WILLARD EPPERSON Attending Unavailabl e WILLARD EPPERSON Admitting Unavailabl WILLARD Gonzalez Attending Unavailabl JOAN Salmeron Primary Care Unavailable WILLARD EPPERSON Referring Unavailabl JOAN Salmeron Primary Care Unavailable IWLLARD EPPERSON Admitting Unavailabl JOAN Salmeron Primary Care Unavailable WILLARD EPPERSON Admitting Unavailabl WILLARD Gonzalez Attending Unavailabl e JOAN WELCH Primary Care Unavailable WILLARD EPPERSON Referring Unavailabl WILLARD Gonzalez Admitting Unavailabl WILLARD Gonzalez Attending Unavailabl JOAN Salmeron Primary Care Unavailable WILLARD EPPERSON Admitting Unavailabl e WILLARD EPPERSON Referring Unavailabl e WILLARD EPPERSON Admitting Unavailabl JOAN Salmeron Primary Care Unavailable Joan Welch MD Primary Care Provider JOAN WELCH Primary Care Unavailable WILLARD EPPERSON Attending JOAN Antunez Primary Care Unavailable WILLARD EPPERSON Attending Joan Antunez MD Primary Care Provider Allergies Allergy Classification Reported Allergen(s) Allergy Type Date of Onset Reaction(s) Facility Aspirin / Caffeine / Orphenadrine (11 sources) Aspirin / Caffeine / Orphenadrine Drug Allergy 5 [facility] NSAIDs (20 sources) Ibuprofen Drug Allergy 5 Swelling, Hives, Itching [facility] Penicillins (antibiotic) (11 sources) Penicillins Drug Allergy 5 [facility] Sulfonamides (antibiotic) (11 sources) Sulfonamides (Antibiotic) Drug Allergy 6 [facility] Tetracyclines (antibiotic) (11 sources) Tetracycline Drug Allergy 5 [facility] (20 sources) aspirin / caffeine / orphenadrine; Translations: [ORPHENADRINE- A-CAFFEINE] Propensity to adverse reactions to drug 5 [facility] Work Phone: (20 sources) ibuprofen; Translations: [IBUPROFEN] Propensity to adverse reactions to drug 8 Swelling [facility] Work Phone: (20 sources) naproxen; Translations: [NAPROXEN SODIUM] Propensity to adverse reactions to drug 5 Hives, Itching, Swelling [facility] Work Phone: (20 sources) Penicillins; Translations: [PENICILLINS] Propensity to adverse reactions to drug 5 [facility] Work Phone: (20 sources) Sulfonamides (Antibiotic); Translations: [SULFA (SULFONAMIDE ANTIBIOTICS)] Propensity to adverse reactions to drug 6 [facility] Work Phone: (20 sources) tetracycline; Translations: [TETRACYCLINE] Propensity to adverse reactions to drug 5 [facility] Work Phone: (6 sources) Penicillins Propensity to adverse reactions to drug 5 [facility] (8 sources) Sulfonamides (Antibiotic) Propensity to adverse reactions to drug 6 [facility] (2 sources) Penicillins [facility] adverse [facility] (1 source) tiZANidine Drug Allergy 9 Other: See Comments [facility] Medications Current Medications Medication Drug Class(es) Dates Sig (Normalized) Sig (Original) Afluria Quad (Pf) 60 McG/0.5 Ml Intramuscular Syringe (9 sources) Start: 02-09-2017 AFLURIA QUAD , PF, syringe ADMINISTERED AT DDM 0 02/09/2017 Active AFLURIA QUAD , PF, syringe (1 source) Start: 02-09-2017 AFLURIA QUAD , PF, syringe ADMINISTERED AT DDM 0 02/09/2017 Active atenolol 25 mg oral tablet (20 sources) beta-Adrenergic Lora Start: 02-02-2016 take 1 tablet by mouth once daily atenolol (TENORMIN) 25 MG tablet Take 25 mg by mouth daily. 12 02/02/2016 Active Completed/Discontinued Medications Medication Drug Class(es) Dates Sig (Normalized) Sig (Original) acetaminophen 325 mg oral tablet (20 sources) Start: 04-09-2021 End: 04-09-2021 acetaminophen (TYLENOL) tablet 650 mg Problems Active Problems Problem Classification Problem Date Documented Date Episodic/Chronic Diverticulosis and diverticulitis (1 source) Diverticulosis of colon; Translations: [Diverticulosis of large intestine without perforation or abscess without bleeding] Onset: 04-18-2008 04-18-2008 Chronic Essential hypertension (20 sources) Hypertensive disorder; Translations: [Essential (primary) hypertension] Onset: 05-17-2016 05-17-2016 Chronic Malaise and fatigue (1 source) Fatigue; Translations: [Fatigue, unspecified type] Episodic Multiple sclerosis (20 sources) Primary progressive multiple sclerosis; Translations: [Multiple sclerosis] Onset: 06-23-2016 10-16-2016 Chronic Nutritional deficiencies (13 sources) Vitamin D deficiency; Translations: [Vitamin D deficiency, unspecified] Onset: 10-19-2020 Chronic Other circulatory disease (1 source) Orthostatic hypotension; Translations: [Orthostasis] Episodic Other connective tissue disease (1 source) Recurrent falls ; Translations: [Falls frequently] Other screening for suspected conditions (not mental disorders or infectious disease) (2 sources) Patient encounter status; Translations: [Encounter for screening mammogram for malignant neoplasm of breast] Onset: 06-11-2018 Episodic Paralysis (20 sources) Paresis of lower extremity; 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] Onset: 03-04-2016 03-04-2016 Chronic Unclassified (1 source) Patient encounter status; Translations: [Therapeutic drug monitoring] Past or Other Problems Problem Classification Problem Date Documented Da te Episodic/Chronic Anxiety disorders (20 sources) Anxiety; Translations: [Anxiety disorder, unspecified] Onset: 06-23-2016 Resolved: 04-08-2021 06-23-2016 Chronic Cardiac dysrhythmias (1 source) Sinus tachycardia; Translations: [Tachycardia, unspecified] Onset: 04-21-2009 04-21-2009 Episodic Gastrointestinal hemorrhage (1 source) Hemorrhage of rectum and anus; Translations: [Hemorrhage of anus and rectum] Onset: 03-25-2008 03-25-2008 Episodic Other connective tissue disease (20 sources) Spasm; Translations: [Spasticity] Onset: 05-17-2016 Resolved: 04-08-2021 05-17-2016 Episodic Other connective tissue disease (20 sources) Spasticity; Translations: [Cramp and spasm] Onset: 02-13-2017 02-13-2017 Episodic Other connective tissue disease (1 source) Peripheral enthesopathies and allied syndromes; Translations: [Peripheral enthesopathies and allied syndromes] Onset: 03-24-2005 03-24-2005 Episodic Other nervous system disorders (20 sources) Ataxia; Translations: [Spasm] Onset: 05-17-2016 05-17-2016 Episodic Other nervous system disorders (8 sources) Impaired cognition; Translations: [Other symptoms and signs involving cognitive functions and awareness] Onset: 04-09-2021 04-09-2021 Episodic Residual codes; unclassified (11 sources) H/O: Disorder; Translations: [Personal history of other specified conditions] Onset: 10-19-2020 Episodic Results Test Name Value Interpretation Reference Range Facil it Vital Signs Date Time Vital Sign Value Performing Clinician Facility 04-09-2021 13:25-0400 Body temperature 97.9 [degF] Chair 7 [facility] 04-09-2021 13:25-0400 Diastolic blood pressure 80 mm[Hg] Chair 7 [facility] 04-09-2021 13:25-0400 Heart rate 123 /min Chair 7 [facility] 04-09-2021 13:25-0400 SaO2% (BldA) [Mass fraction] 97 % Chair 7 [facility] 04-09-2021 13:25-0400 Systolic blood pressure 133 mm[Hg] Chair 7 [facility] 04-09-2021 11:06-0400 Respiratory rate 16 /min Chair 7 [facility] 04-09-2021 07:57-0400 Body height 162.6 cm Willard Epperson MD Work Phone: [facility] 04-09-2021 07:57-0400 Body mass index (BMI) [Ratio] 25.06 kg/m2 Willard Epperson MD Work Phone: [facility] 04-09-2021 07:57-0400 Body weight 66.22 kg Willard Epperson MD Work Phone: [facility] 04-09-2021 07:57-0400 Diastolic blood pressure 65 mm[Hg] Willard Epperson MD Work Phone: [facility] 04-09-2021 07:57-0400 Heart rate 111 /min Willard Epperson MD Work Phone: [facility] 04-09-2021 07:57-0400 Systolic blood pressure 123 mm[Hg] Willard Epperson MD Work Phone: [facility] 10-16-2020 12:50-0400 Body temperature 98.29 [degF] Chair 2 [facility] 10-16-2020 12:50-0400 Diastolic blood pressure 63 mm[Hg] Chair 2 [facility] 10-16-2020 12:50-0400 Heart rate 130 /min Chair 2 [facility] 10-16-2020 12:50-0400 SaO2% (BldA) [Mass fraction] 96 % Chair 2 [facility] 10-16-2020 12:50-0400 Systolic blood pressure 128 mm[Hg] Chair 2 [facility] 10-16-2020 11:34-0400 Respiratory rate 16 /min Chair 2 [facility] 04-17-2020 14:51-0500 BP Diastolic 70 mm[Hg] Chair 2 [facility] 04-17-2020 14:51-0500 BP Systolic 136 mm[Hg] Chair 2 [facility] 04-17-2020 14:51-0500 Pulse (Heart Rate) 126 /min Chair 2 [facility] 04-17-2020 14:51-0500 Pulse Oximetry 97 % Chair 2 [facility] 04-17-2020 14:51-0500 Respiratory Rate 16 /min Chair 2 [facility] 04-17-2020 14:48-0500 Body Temperature 98.4 [degF] Chair 2 [facility] 04-17-2020 10:41-0500 BMI (Body Mass Index) 22.31 kg/m2 Willard Epperson [facility] 04-17-2020 10:41-0500 Body weight 58.97 kg Willard Epperson [facility] 04-17-2020 10:41-0500 BP Diastolic 80 mm[Hg] Willard Epperson [facility] 04-17-2020 10:41-0500 BP Systolic 131 mm[Hg] Willard Epperson [facility] 04-17-2020 10:41-0500 Height 162.6 cm Willard Epperson [facility] 04-17-2020 10:41-0500 Pulse (Heart Rate) 86 /min Willard Epperson [facility] 10-18-2019 13:54-0400 Body Temperature 97.5 [degF] Chair 1 [facility] 10-18-2019 13:54-0400 BP Diastolic 79 mm[Hg] Chair 1 [facility] 10-18-2019 13:54-0400 BP Systolic 137 mm[Hg] Chair 1 [facility] 10-18-2019 13:54-0400 Pulse (Heart Rate) 112 /min Chair 1 [facility] 10-18-2019 13:54-0400 Pulse Oximetry 95 % Chair 1 [facility] 10-18-2019 13:54-0400 Respiratory Rate 20 /min Chair 1 [facility] 10-18-2019 07:03-0400 BMI (Body Mass Index) 22.31 kg/m2 Willard Epperson [facility] 10-18-2019 07:03-0400 Body weight 58.97 kg Willard Epperson [facility] 10-18-2019 07:03-0400 Height 162.6 cm Willard Epperson [facility] 04-12-2019 12:17-0500 BMI (Body Mass Index) 22.31 kg/m2 Willard Epperson [facility] 04-12-2019 12:17-0500 Body weight 58.97 kg Willard Epperson [facility] 04-12-2019 12:17-0500 BP Diastolic 78 mm[Hg] Willard Epperson [facility] 04-12-2019 12:17-0500 BP Systolic 124 mm[Hg] Willard Epperson [facility] 04-12-2019 12:17-0500 Height 162.6 cm Willard Epperson [facility] 04-12-2019 12:17-0500 Pulse (Heart Rate) 106 /min Willard Epperson [facility] 04-12-2019 12:12-0500 Body Temperature 97.9 [degF] Chair 5 [facility] 04-12-2019 12:12-0500 BP Diastolic 81 mm[Hg] Chair 5 [facility] 04-12-2019 12:12-0500 BP Systolic 134 mm[Hg] Chair 5 [facility] 04-12-2019 12:12-0500 Pulse (Heart Rate) 104 /min Chair 5 [facility] 04-12-2019 12:12-0500 Pulse Oximetry 97 % Chair 5 [facility] 04-12-2019 12:12-0500 Respiratory Rate 16 /min Chair 5 [facility] 10-12-2018 13:25-0400 Body Temperature 98.1 [degF] Chair 1 [facility] 10-12-2018 13:25-0400 BP Diastolic 74 mm[Hg] Chair 1 [facility] 10-12-2018 13:25-0400 BP Systolic 137 mm[Hg] Chair 1 [facility] 10-12-2018 13:25-0400 Pulse (Heart Rate) 130 /min Chair 1 [facility] 10-12-2018 13:25-0400 Pulse Oximetry 95 % Chair 1 [facility] 10-12-2018 10:14-0400 Respiratory Rate 14 /min Chair 1 [facility] 09-28-2018 15:44-0400 BMI (Body Mass Index) 22.31 kg/m2 Willard Epperson [facility] 09-28-2018 15:44-0400 Body weight 58.97 kg Willard Epperson [facility] 09-28-2018 15:44-0400 BP Diastolic 80 mm[Hg] Willard Epperson [facility] 09-28-2018 15:44-0400 BP Systolic 145 mm[Hg] Willard Epperson [facility] 09-28-2018 15:44-0400 Height 162.6 cm Willard Epperson [facility] 09-28-2018 15:44-0400 Pulse (Heart Rate) 89 /min Willard Epperson [facility] 09-28-2018 11:38-0400 BMI (Body Mass Index) 22.31 kg/m2 Willard Epperson [facility] 09-28-2018 11:38-0400 Height 162.6 cm Willard Epperson [facility] 09-28-2018 11:38-0400 Weight 58.97 kg Willard Epperson [facility] 01-19-2018 11:34-0400 BMI (Body Mass Index) 20.77 kg/m2 Willard Epperson [facility] 01-19-2018 11:34-0400 BP Diastolic 70 mm[Hg] Willard Epperson [facility] 01-19-2018 11:34-0400 BP Systolic 118 mm[Hg] Willard Epperson [facility] 01-19-2018 11:34-0400 Height 162.6 cm Willard Epperson [facility] 01-19-2018 11:34-0400 Pulse (Heart Rate) 76 /min Willard Epperson [facility] 01-19-2018 11:34-0400 Weight 54.88 kg Willard Epperson [facility] 10-11-2017 14:08-0400 Body Temperature 98.1 [degF] Chair 1 [facility] 10-11-2017 14:08-0400 BP Diastolic 79 mm[Hg] Chair 1 [facility] 10-11-2017 14:08-0400 BP Systolic 131 mm[Hg] Chair 1 [facility] 10-11-2017 14:08-0400 Pulse (Heart Rate) 106 /min Chair 1 [facility] 10-11-2017 14:08-0400 Pulse Oximetry 95 % Chair 1 [facility] 10-11-2017 14:08-0400 Respiratory Rate 14 /min Chair 1 [facility] 08-25-2017 11:31-0400 BMI (Body Mass Index) 22.31 kg/m2 Willard Epperson [facility] 08-25-2017 11:31-0400 BP Diastolic 83 mm[Hg] Willard Epperson [facility] 08-25-2017 11:31-0400 BP Systolic 137 mm[Hg] Willard Epperson [facility] 08-25-2017 11:31-0400 Height 162.6 cm Willard Epperson [facility] 08-25-2017 11:31-0400 Pulse (Heart Rate) 81 /min Willard Epperson [facility] 08-25-2017 11:31-0400 Weight 58.97 kg Willard Epperson [facility] 05-25-2017 09:23-0500 BMI (Body Mass Index) 22.49 kg/m2 Willard Epperson [facility] Work Phone: 05-25-2017 09:23-0500 BP Diastolic 74 mm[Hg] Willard Epperson [employer] Work Phone: 05-25-2017 09:23-0500 BP Systolic 104 mm[Hg] Willard Epperson [employer] Work Phone: 05-25-2017 09:23-0500 Height 162.6 cm Willard Epperson [employer] Work Phone: 05-25-2017 09:23-0500 Pulse (Heart Rate) 106 /min Willard Epperson [employer] Work Phone: 05-25-2017 09:23-0500 Weight 59.42 kg Willard Epperson [employer] Work Phone: 05-04-2017 13:10-0500 Body Temperature 98.29 [degF] Physician No [employer] Work Phone: 05-04-2017 13:10-0500 BP Diastolic 77 mm[Hg] Physician No [employer] Work Phone: 05-04-2017 13:10-0500 BP Systolic 121 mm[Hg] Physician No [employer] Work Phone: 05-04-2017 13:10-0500 Pulse (Heart Rate) 104 /min Physician No [employer] Work Phone: 05-04-2017 13:10-0500 Pulse Oximetry 96 % Physician No [employer] Work Phone: 05-04-2017 11:55-0500 Respiratory Rate 14 /min Physician No [employer] Work Phone: 04-13-2017 16:00-0500 Body Temperature 98.01 [degF] Physician No [employer] Work Phone: 04-13-2017 16:00-0500 BP Diastolic 77 mm[Hg] Physician No [employer] Work Phone: 04-13-2017 16:00-0500 BP Systolic 137 mm[Hg] Physician No [employer] Work Phone: 04-13-2017 16:00-0500 Pulse (Heart Rate) 115 /min Physician No [facility] Work Phone: 04-13-2017 16:00-0500 Pulse Oximetry 96 % Physician Mercedes [facility] Work Phone: 04-13-2017 16:00-0500 Respiratory Rate 16 /min Physician Mercedes [facility] Work Phone: 02-13-2017 09:07-0400 BMI (Body Mass Index) 21.8 kg/m2 Willard Epperson [facility] Work Phone: 02-13-2017 09:07-0400 BP Diastolic 81 mm[Hg] Willard Epperson [facility] Work Phone: 02-13-2017 09:07-0400 BP Systolic 145 mm[Hg] Willard Epperson [facility] Work Phone: 02-13-2017 09:07-0400 Height 162.6 cm Willard Epperson [facility] Work Phone: 02-13-2017 09:07-0400 Pulse (Heart Rate) 73 /min Willard Epperson [facility] Work Phone: 02-13-2017 09:07-0400 Weight 57.61 kg Willard Zhou [facility] Work Phone: Encounters Encounter Date Encounter Type Care Provider Facility Start: 06-23-2022 End: 06-23-2022 Telemedicine consultation with patient Willard Epperson MD Work Phone: [facility] Procedures Date Procedure Procedure Detail Performing Clinician Start: 04-09-2021 Assay of gammaglobul in iga igd igg igm each Willard Epperson MD Work Phone: Start: 04-09-2021 Hepatic function panel Willard Epperson MD Work Phone: Start: 03-10-2020 Mammography Hermila geronimo Start: 10-18-2019 MRI of brain and brain stem Willard Epperson Work Phone: Start: 01-21-2019 Mammography Joan billingsley MD Work Phone: Start: 01-14-2019 Adult depression scr eening assessment Joan Welch MD Work Phone: Start: 10-01-2018 Colonoscopy Amrit ramirez Start: 09-28-2018 Creatinine [Mass/vol ume] in Blood Willard Epperson Work Phone: Plan of Treatment Date Care Activity Detail Author Start: 10-01-2028 Screening for malignant neoplasm of colon [facility] Start: 10-02-2023 Colonoscopy COLONOSCOPY [facility] Start: 10-02-2023 COLORECTAL CANCER SCREENING COLORECTAL CANCER SCREENING [facility] Start: 02-08-2022 Tetanus vaccination [facility] Start: 02-08-2022 Urine microalbumin profile DTAP,TDAP,TD (2 - Td or Tdap) [facility] Start: 02-03-2022 Influenza vaccination [facility] Start: 09-28-2021 End: 09-28-2021 ambulatory [facility] Start: 09-28-2021 End: 09-28-2021 Patient encounter procedure [facility] Start: 09-27-2021 End: 09-27-2021 Patient encounter procedure [facility] Start: 04-23-2021 COVID-19 Vaccine (3 - Booster for Pfizer series) COVID-19 Vaccine (3 - Booster for Pfizer series) [facility] Start: 04-16-2021 End: 04-16-2021 ambulatory 04/16/2021 Infusion/Injection Infusion Therapy [facility] Start: 04-09-2021 End: 04-09-2021 ambulatory 04/09/2021 Infusion/Injection Infusion Therapy [facility] Start: 04-09-2021 End: 04-09-2021 Patient encounter procedure 04/09/2021 Office Visit Neurology Willard Epperson MD [address] [facility] [address] [place] [id number] [facility] Start: 03-23-2021 COVID-19 Vaccine (3 - Booster for Pfizer series) COVID-19 Vaccine (3 - Booster for Pfizer series) [facility] Start: 03-10-2021 Screening for malignant neoplasm of breast Mammogram [facility] Start: 03-10-2021 Screening mammography Mammogram [facility] Start: 03-05-2021 End: 10-19-2021 MR Brain With And Without Contrast MR Brain With And Without Contrast Imaging Routine Multiple sclerosis, primary progressive (HCC) Expected: 03/05/2021, Expires: 10/19/2021 [facility] Immunizations Immunization Date Immunization Notes Care Provider Fa cility 10-21-2020 COVID-19 vaccine, ag e 12+ yr (PFIZER-BIONTECH - PURPLE TOP) Joan Welch MD Work Phone: [facility] Work Phone: 09-28-2020 COVID-19 vaccine, ag e 12+ yr (PFIZER-BIONTECH - PURPLE TOP) Joan Welch MD Work Phone: [facility] Work Phone: 02-09-2017 AFLURIA QUAD 18, PF, syringe; Translations: [Afluria Quad (Pf) 60 McG/0.5 Ml Intramuscular Syringe] Jeanne Hilario [facility] Work Phone: 02-08-2016 influenza, seasonal, injectable Joan Welch MD Work Phone: [facility] 02-22-2013 influenza virus vaccine, unspecified formulation Joan Welch MD Work Phone: [facility] 03-03-2012 influenza virus vaccine, unspecified formulation Joan Welch MD Work Phone: [facility] 02-09-2012 tetanus toxoid, redu deniz diphtheria toxoid, and acellular pertussis vaccine, adsorbed Joan Welch MD Work Phone: [facility] 04-07-2010 pneumococcal polysaccharide vaccine, 23 valent Joan Welch MD Work Phone: [facility] 03-25-2008 influenza virus vaccine, unspecified formulation Joan Welch MD Work Phone: [facility] 04-03-2007 influenza virus vaccine, unspecified formulation Joan Welch MD Work Phone: [facility] Work Phone: 04-17-2006 influenza virus vaccine, unspecified formulation Joan Welch MD Work Phone: [facility] 05-17-2005 influenza virus vaccine, unspecified formulation Joan Welch MD Work Phone: [facility] Work Phone: Payers Date Payer Category Payer Unknown xxxxxxxxxxxx [id number] 2013 Unknown [id number] 2013 Unknown [id number] 2013 Unknown [employer] [id number] 2013-Present [phone] [address] [place] [address] [id number] 1958 Unknown [id number] 1958 Unknown [id number] 1958 Unknown [id number] 1958 Unknown [id number] 1958 Unknown [id number] 1958 Unknown [id number] 1958 Unknown [id number] 1958 Unknown [id number] 1958 Unknown [id number] 1958 Unknown [id number] 1960 Unknown [id number] Social History Date Type Detail Facility Start: 04-13-2017 End: 10-11-2017 Tobacco smoking status WAIS Never smoker [facility] Work Phone: Start: 1960 Sex Assigned At Not on file [employer] Work Phone: Start: 04-16-2019 End: 07-14-2021 Alcohol intake Current non-drinker of alcohol (finding) [facility] Exposure to SARS-CoV -2 (event) Not sure [facility] Start: 04-13-2017 End: 10-18-2019 Tobacco use and exposure Never used [facility] Clinical Notes 10-16-2020 to 11-09-2022 Willard Epperson MD - 06/23/2022 11:31 AM ESTPatient InstructionsPatient InstructionsDatre Epperson MD - 04/09/2021 8:00 AM EDTSmitWillard cooper MD - 10/29/2020 10:03 AM EDT Note Date & Type Note Facility 11-09-2022 Note Patient Outreach (IN [facility]) BRITNEY PERAZA ([id number]) 1960 F TXT Date Time Provider Department 11/09/22 JOAN WELCH During your visit today, we recorded the following information about you: Allergies As of Date: 11/09/2022 Noted Allergy Reaction TIZANIDINE 01/14/2019 14 - Other: See Comments Comments: Dizziness IBUPROFEN 04/07/2008 7 - Swelling NAPROXEN SODIUM 04/07/2005 4 - Hives 7 - Swelling 9 - Itching NORGESIC FORTE (ORPHENADRINE-ASA-*03/23/2005 Comments: tachycardia PENICILLINS 03/23/2005 4 - Hives SULFA (SULFONAMIDE ANTIBIOTICS) 08/02/2005 4 - Hives TETRACYCLINE 03/23/2005 4 - Hives Date Reviewed: 03/17/2020 Reviewed by: Tate Barry - Fully Assessed Visit Diagnosis:Encounter for screening mammogram for breast cancer [Z12.31] Order(s):[facility] SCREENING [[id number]] Order #: [id number] FUTURE Prescriptions as of 11/14/2022 - atenolol (TENORMIN) 25 mg tablet Take 1 tablet by mouth once daily. - meclizine (ANTIVERT) 25 mg tab Take 1 tablet by mouth every 6 hours as needed (dizziness). - Cholecalciferol, Vitamin D3, 5,000 unit cap - dalfampridine (AMPYRA) 10 mg tablet - biotin 5,000 mcg subl Dissolve under the tongue. - ocrelizumab (OCREVUS INTRAVENOUS) Inject intravenously. - LORazepam (ATIVAN) 0.5 mg tab Take 1 tablet by mouth once daily. As needed for anxiety - acetaminophen(TYLENOL 325 MG TAB) Take two(2) tablets every four(4) to six(6) hours as needed for pain. - CLARITIN 10 MG TAB Problem List As Of Date 11/09/2022 Noted Resolved PERIPH ENTHESOPATHIES [726] 03/24/2005 RECTAL AND ANAL HEMORRHAGE [K62.5] 03/25/2008 DIVERTICULOSIS OF COLON W/O BLEED [K57.30] 04/18/2008 Sinus Tachycardia [R00.0] 04/21/2009 Colon cancer screening [Z12.11] 06/11/2018 MS (multiple sclerosis) (HCC) [G35] 01/14/2019 Encounter Status:Closed by KODAK PRODUSER on 11/14/22 [facility] 06-23-2022 History of Present illness Narrative Left voicemail message with patient. Was not sure if she wanted to continue to follow-up in clinic. Would be happy to see her back, even if she is no longer on disease modifying therapy to work on symptomatic management. 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 documented in this encounter [facility] 12-01-2021 Note Patient Outreach (IN TMMN) BRITNEY PERAZA ([id number]) 1960 F TXT Date Time Provider Department 12/01/21 JOAN WELCH During your visit today, we recorded the following information about you: Allergies As of Date: 12/01/2021 Noted Allergy Reaction TIZANIDINE 01/14/2019 14 - Other: See Comments Comments: Dizziness IBUPROFEN 04/07/2008 7 - Swelling NAPROXEN SODIUM 04/07/2005 4 - Hives 7 - Swelling 9 - Itching NORGESIC FORTE (ORPHENADRINE-ASA-*03/23/2005 Comments: tachycardia PENICILLINS 03/23/2005 4 - Hives SULFA (SULFONAMIDE ANTIBIOTICS) 08/02/2005 4 - Hives TETRACYCLINE 03/23/2005 4 - Hives Date Reviewed: 03/17/2020 Reviewed by: Tate Barry - Fully Assessed Visit Diagnosis:Encounter for screening mammogram for breast cancer [Z12.31] Order(s):[facility] SCREENING [[id number]] Order #: [id number] FUTURE Prescriptions as of 12/06/2021 - atenolol (TENORMIN) 25 mg tablet Take 1 tablet by mouth once daily. - meclizine (ANTIVERT) 25 mg tab Take 1 tablet by mouth every 6 hours as needed (dizziness). - Cholecalciferol, Vitamin D3, 5,000 unit cap - dalfampridine (AMPYRA) 10 mg tablet - biotin 5,000 mcg subl Dissolve under the tongue. - ocrelizumab (OCREVUS INTRAVENOUS) Inject intravenously. - LORazepam (ATIVAN) 0.5 mg tab Take 1 tablet by mouth once daily. As needed for anxiety - acetaminophen(TYLENOL 325 MG TAB) Take two(2) tablets every four(4) to six(6) hours as needed for pain. - CLARITIN 10 MG TAB Problem List As Of Date 12/01/2021 Noted Resolved PERIPH ENTHESOPATHIES [726] 03/24/2005 RECTAL AND ANAL HEMORRHAGE [K62.5] 03/25/2008 DIVERTICULOSIS OF COLON W/O BLEED [K57.30] 04/18/2008 Sinus Tachycardia [R00.0] 04/21/2009 Colon cancer screening [Z12.11] 06/11/2018 MS (multiple sclerosis) (HCC) [G35] 01/14/2019 Encounter Status:Closed by [employer], PRODUSER on 12/06/21 [facility] 04-09-2021 Instructions Zahra Pratt RN - 04/09/2021 8:54 AM EDT MEDICATION GUIDE OCREVUS (oak-rev-us) (ocrelizumab) injection, for intravenous use What is the most important information I should know about OCREVUS? OCREVUS can cause serious side effects, including: Infusion reactions: OCREVUS can cause infusion reactions that can be serious and require you to be hospitalized. You will be monitored during your infusion and for at least 1 hour after each infusion of OCREVUS for signs and symptoms of an infusion reaction. Tell your healthcare provider or nurse if you get any of these symptoms: o itchy skin o trouble breathing o nausea o shortness of breath o rash o throat irritation or pain o headache o fatigue o hives o feeling faint o swelling of the throat o fast heart beat o tiredness o fever o dizziness o coughing or wheezing o redness on your face (flushing) These infusion reactions can happen for up to 24 hours after your infusion. It is important that you call your healthcare provider right away if you get any of the signs or symptoms listed above after each infusion. If you get infusion reactions, your healthcare provider may need to stop or slow down the rate of your infusion. Infection: o OCREVUS increases your risk of getting upper respiratory tract infections, lower respiratory tract infections, skin infections, and herpes infections. Tell your healthcare provider if you have an infection or have any of the following signs of infection including fever, chills, a cough that does not go away, or signs of herpes (such as cold sores, shingles, or genital sores). These signs can happen during treatment or after you have received your last dose of OCREVUS. If you have an active infection, your healthcare provider should delay your treatment with OCREVUS until your infection is gone. o Progressive Multifocal Leukoencephalopathy (PML): Although no cases have been seen with OCREVUS treatment in clinical trials, PML may happen with OCREVUS. PML is a rare brain infection that usually leads to or severe disability. Tell your healthcare provider right away if you have any new or worsening neurologic signs or symptoms. These may include problems with thinking, balance, eyesight, weakness on 1 side of your body, strength, or using your arms or legs. o Hepatitis B virus (HBV) reactivation: Before starting treatment with OCREVUS, your healthcare provider will do blood tests to check for hepatitis B viral infection. If you have ever had hepatitis B virus infection, the hepatitis B virus may become active again during or after treatment with OCREVUS. Hepatitis B virus becoming active again (called reactivation) may cause serious liver problems including liver failure or . Your healthcare provider will monitor you if you are at risk for hepatitis B virus reactivation during treatment and after you stop receiving OCREVUS. o Weakened immune system: OCREVUS taken before or after other medicines that weaken the immune system could increase your risk of getting infections. What is OCREVUS? OCREVUS is a prescription medicine used to treat: o Relapsing forms of multiple sclerosis (MS), to include clinically isolated syndrome, relapsing-remitting disease, and active secondary progressive disease, in adults o Primary progressive MS, in adults. It is not known if OCREVUS is safe or effective in children. Who should not receive OCREVUS? o Do not receive OCREVUS if you have an active hepatitis B virus (HBV) infection. o Do not receive OCREVUS if you have had a life threatening allergic reaction to OCREVUS. Tell your healthcare provider if you have had an allergic reaction to OCREVUS or any of its ingredients in the past. See What are the ingredients in OCREVUS? for a complete list of ingredients in OCREVUS. Before receiving OCREVUS, tell your healthcare provider about all of your medical conditions, including if you: o have or think you have an infection. See What is the most important information I should know about OCREVUS? o have ever taken, take, or plan to take medicines that affect your immune system, or other treatments for MS. These medicines could increase your risk of getting an infection. o have ever had hepatitis B or are a carrier of the hepatitis B virus. o have had a recent vaccination or are scheduled to receive any vaccinations. o You should receive any required live or live-attenuated vaccines at least 4 weeks before you start treatment with OCREVUS. You should not receive live or live-attenuated vaccines while you are being treated with OCREVUS and until your healthcare provider tells you that your immune system is no longer weakened. o When possible, you should receive any non-live vaccines at least 2 weeks before you start treatment with OCREVUS. If you would like to receive any non-live (inactivated) vaccines, including the seasonal flu vaccine, while you are being treated with OCREVUS, talk to your healthcare provider. o If you are or planning to become talk to your doctor about vaccinations for your baby, as some precautions may be needed. o are , think that you might be , or plan to become . It is not known if OCREVUS will harm your unborn baby. You should use control (contraception) during treatment with OCREVUS and for 6 months after your last infusion of OCREVUS. o are or plan to breastfeed. It is not known if OCREVUS passes into your breast milk. Talk to your healthcare provider about the best way to feed your baby if you take OCREVUS. Tell your healthcare provider about all the medicines you take, including prescription and fupn-qxc-opirpke medicines. vitamins, and herbal supplements. How will I receive OCREVUS? o OCREVUS is given through a needle placed in your vein (intravenous infusion) in your arm. o Before treatment with OCREVUS, your healthcare provider will give you a corticosteroid medicine and an antihistamine to help reduce infusion reactions (make them less frequent and less severe). You may also receive other medicines to help reduce infusion reactions. See What is the most important information I should know about OCREVUS? o Your first full dose of OCREVUS will be given as 2 separate infusions, 2 weeks apart. Each infusion will last about 2 hours and 30 minutes. o Your next doses of OCREVUS will be given as one infusion every 6 months. These infusions will last about 3 hours and 30 minutes. What are the possible side effects of OCREVUS? OCREVUS may cause serious side effects, including: o See What is the most important information I should know about OCREVUS? o Risk of cancers (malignancies) including breast cancer. Follow your healthcare provider s instructions about standard screening guidelines for breast cancer. Most common side effects include infusion reactions and infections. See What is the most important information I should know about OCREVUS? These are not all the possible side effects of OCREVUS. Call your doctor for medical advice about side effects. You may report side effects to FDA at 8-528-JLA-3963. General information about the safe and effective use of OCREVUS. Medicines are sometimes prescribed for purposes other than those listed in a Medication Guide. Do not use OCREVUS for a condition for which it was not prescribed. Do not give OCREVUS to other people, even if they have the same symptoms that you have. It may harm them. You can ask your pharmacist or healthcare provider for information about OCREVUS that is written for health professionals. What are the ingredients in OCREVUS? Active ingredient: ocrelizumab Inactive ingredients: glacial acetic acid, polysorbate 20, sodium acetate trihydrate, trehalose dihydrate. Manufactured by: [employer] A Member of the [employer], [address] [place] [address], [place] [address] [place]. License No. [id number] For more information, go to www.ClassLink.BeTheBeast or call . This Medication Guide has been approved by the U.S. Food and Drug Administration documented in this encounter [facility] 04-09-2021 Instructions Willadr Epperson MD - 04/09/2021 8:16 AM EDT Central [phone] [phone] documented in this encounter [facility] 04-09-2021 History of Present illness Narrative Images from the original note were not included. Patient Name: Britney Peraza : 1960 MR #: [id number] Other Physicians: Joan Welch MD (Primary Care Physician) [facility] Follow-up Visit 04/09/2021 Review of Neuroimmunological Disease Primary Neurological Diagnosis: PPMS Date of Symptom Onset: 06/05/09 Year of diagnosis: 2016 Relapse History Most Recent EDSS: Year of insidious progression: Time on DMT Month Year Month Year Multiple-Sclerosis -Disease-Modifying Therapies ocrelizumab Start: 2016 Stop: Multiple-Sclerosis - Disease-Modifying Therapies ocrelizumab Ethnicity: Dominant Hand: Right DMT safety labs: 10/2016 Hep C antibody negative Hep B core antibody negative Hep B surface antigen negative Hep B surface antibody positive Quantiferon gold negative HIV antibody negative VZV immune Important social/employment history to pull forward: 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 female who presents for follow-up. PPMS-on ocrelizumab since April 2017. Has been radiographically stable. Some decline recently with gait suspect element of deconditioning and orthostasis. 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 Discussed possible need for assisted living as she progresses. Could benefit from AL so that she could get on site PT which would really help her. Also social benefits. Britney is not sure about this, but is considering. Will consult for help. Fatigue somewhat chronically present, but now improved. In the past may be multifactorial with contributions of deconditioning, orthostasis, atenolol. Gait impairment-did not find benefit with Ampyra. Spasticity-minimal, off medications. Vitamin D deficiency-on supplementation. Mild ptosis- will send MG lab today. Not having diplopia. PLAN: I recommend continuing ocrelizumab. Our treatment goal is No Evidence of Disease Activity (MURALI), meaning no multiple sclerosis attack, no new/enlarged T2 lesions or new alma lesions on MRI, and no change on neurological exam testing. We discussed this medication the midst of the coronavirus pandemic. She has not had any recent infectious complications. I recommend checking the following labs/tests for safety monitoring while on DMT: CBC with differential, CMP, immunoglobin levels to be checked every 6 months at the time of infusions. Regarding MRI surveillance, I recommend annual MRI of the brain also include cervical and thoracic spine at this time given that it will have been 2017 since last imaged. She is overdue for this. For MS Symptom Management, I recommend the following plan: a. She does not take any symptomatic medications. We recommend a regular exercise program. Patient declined this portion of services with her home health. Social work consult to help assist with possible assisted living as discussed above. I recommend continuing Vitamin D3 30040 IU once every other daily. Goal levels of Vitamin D are 50-100. Check level today. Smoking and second hand smoke lead to worsening of MS. She does not smoke. Inactivated influenza vaccine is recommended yearly. Live/active vaccinations are contraindicated while on immunosuppression. She has completed her COVID vaccination series. I would also recommend consideration of booster dose. Discussed timing of this to be done between 3 and 5 months after most recent infusion. Follow-up with me in 6 months. Willard Epperson MD [facility] Neuroimmunology/ Neuroinfectious Disease ([facility], and [place] [facility]) General Neurology ([facility]) ([place]) [place] Address: [address] [place] [address], [address] Address [address] [facility], [address] [facility] [address] [place], [place] [id number] Chief Complaint: Neuro-immunology clinic follow up INTERIM HISTORY Britney Peraza is here for follow up. Last was seen 10/23. Accompanied by her sister today. She has her infusion scheduled later this morning. No new symptoms to report, though her sister feels she minimizes worsening gait impairment. We had placed orders for [facility] in [facility]. They had been providing her with a work but not any home PT as was the original plan. Still getting Meals on Wheels. Her sister right up concerns about how long Nancy can continue to live on her own alone. Reviewed that assisted living might also be beneficial for the patient in terms of additional social activity as well as physical therapy. They would be interested in discussing with social work. No infectious complications to report. Patient has completed COVID vaccination series, and discussed recommendations for and timing of booster. Last visit had recommended vitamin D 10,000 units daily. This caused diarrhea. Had suggested going to every other day, which seemed better, though the patient has been inconsistent. Discussed plans to schedule annual MRIs today. ROS: System Denies Endorses Constitutional fever, night sweats, weight changes, chills, fatigue Skin rash, itching Eyes vision loss, double vision, blurred vision Heart chest pain, rapid heart beat/palpitations Lungs shortness of breath, wheezing Gastrointestinal abdominal pain, vomiting, diarrhea, constipation, blood in stool Genitourinary, kidney kidney stones, sexual dysfunction, blood in urine Endocrine diabetes, thyroid disease Hematologic/lymph anemia, bleeding, clotting problems, enlarged nodes Musculoskeletal pain, weakness, loss of muscle Psychiatric depression, anxiety, hallucinations Sleep Dream reenactment, snoring, apnea, fall asleep easily, RLS YANETH Snoring Bulbar Double vision, droopy eyelids, hearing loss, tinnitus slurred speech, incoordination, nausea vomiting, vertigo, dysphagia Neurological chronic unchanged gait instability-perhaps slightly worse Past Medical History: Diagnosis Date Multiple sclerosis (HCC) Seasonal allergies Tachycardia Past Surgical History: Procedure Laterality Date APPENDECTOMY TONSILLECTOMY WISDOM TOOTH EXTRACTION Social History Tobacco Use Smoking status: Never Smoker Smokeless tobacco: Never Used Substance Use Topics Alcohol use: No Drug use: No History reviewed. No pertinent family history. Allergies Allergen Reactions Ibuprofen Swelling Naproxen Sodium Hives, Itching and Swelling Zuilhlrhfgxy-Nkm-Nphzuvie tachycardia tachycardia Penicillins Hives Sulfa (Sulfonamide Antibiotics) Hives Tetracycline Hives Current Outpatient Medications Medication Sig Dispense Refill acetaminophen (TYLENOL) 500 MG tablet Take 500 mg by mouth every 6 (six) hours as needed for pain. AFLURIA QUAD [id number], PF, syringe ADMINISTERED AT DDM 0 atenolol (TENORMIN) 25 MG tablet Take 25 mg by mouth daily. 12 cholecalciferol (VITAMIN D3) 250 mcg (10,000 unit) capsule Take 1 (one) capsule (10,000 Units total) by mouth every other day . 90 capsule 3 loratadine (CLARITIN) 10 mg tablet Take by mouth. ocrelizumab (OCREVUS IV) Infuse 600 mg into a venous catheter every 6 (six) months. No current facility-administered medications for this visit. GENERAL PHYSICAL EXAMINATION Vital Signs: PACU Vitals 04/09/21 0757 BP: 123/65 Pulse: (!) 111 General Appearance: in no apparent distress, well nourished, conversant, cooperative MS PERFORMANCE TESTING Neurological Testing VALUE Visual acuity (2.5% low contrast) OD: 20/12 glasses OS: 20/50 glasses 90 second Symbol Digit Modality Test 10 Nine Hole Peg Test Right 1st: 34.91 Right 2nd: Left 1st: 36.91 Left 2nd: Timed [address] Trial 1: Trial 2: NEUROLOGIC EXAMINATION Mental Status: Atten/concentration: awake and alert. Orientation: oriented x3 Language/Speech: Subtle underlying dysarthria with no aphasia similar to baseline. Cranial Nerves: Visual Buckner: normal PERRLA There is a R>L Ptosis CN 3,4,6 (EOM): Nystagmus with left gaze and upgaze Cranial Nerve 7 (Facial): normal facial symmetry and strength CN 8 (Auditory): proper hearing CN 11 (spinal access): full shoulder shrug equally Cranial Nerves: CN 3,4,6 (EOM): nystagmus on L gaze and up-gaze Cranial Nerve 7 (Facial): normal facial symmetry and strength CN 8 (Auditory): proper hearing to finger rub bilaterally Cranial Nerve 9 (Glossophar): soft palate elevates in the midline spontaneously CN 11 (spinal access): full shoulder shrug equally Cranial Nerve 12 (Hypoglossal): tongue is midline on protrusion Motor: Muscle Strength R/L Deltoids 5/5 Biceps 5/5 Triceps 5/5 Hip flexors 4+/4- Knee flexors 4+/4 Knee extensors 4+/4 DF 4/4 PF 4/4 No pronator drift KOKO's slowed in L hand Coordination/ Station & Gait: Ataxia with FNF on left Uses walker In wheelchair this AM Tremor: Resting tremor is absent. Intention tremor is absent. Postural tremor is absent. Action tremor is absent. DIAGNOSTIC TESTING OTHER LABS and STUDIES: Lab Results Component Value Date WBC 11.22 (H) 04/09/2021 HGB 15.4 04/09/2021 HCT 50.0 (H) 04/09/2021 MCV 91.2 04/09/2021 PLT 417 (H) 04/09/2021 Chemistry Component Value Date/Time NA 143 04/17/2020 0834 K 4.2 04/17/2020 0834 CL 106 04/17/2020 0834 BUN 31 (H) 04/17/2020 0834 CREATININE 0.58 (L) 04/17/2020 0834 CREATININE 0.6 09/28/2018 1147 Component Value Date/Time CALCIUM 9.9 04/17/2020 0834 ALKPHOS 100 04/09/2021 0905 AST 17 04/09/2021 0905 ALT 22 04/09/2021 0905 BILITOT 0.2 04/09/2021 0905 Total time spent on encounter, including review of the records, time with patient, and documentation: 40 minutes. documented in this encounter [facility] 01-08-2021 Miscellaneous Notes Changed pharmacies documented in this encounter [facility] 10-29-2020 History of Present illness Narrative Are we able to fax this order for home health to [facility] in [facility]? Contact is: Toll Free [phone] Also, can we reschedule her Apr visit to Apr 09? Ok to use 8:30 new slot. MRIs are ordered and was hoping to do these 04/08. Karuna I am cc'ing you on here as well to see if we can make her infusion apt changed to 04/09. I am ok to see her in infusion bay if needed. Her sister is her transportation so can we check with her regarding this? documented in this encounter [facility] 10-16-2020 History of Present illness Narrative Images from the original note were not included. Patient Name: Britney Peraza : 1960 MR #: [id number] Other Physicians: Joan Welch MD (Primary Care Physician) [facility] Follow-up Visit 10/16/2020 Review of Neuroimmunological Disease Primary Neurological Diagnosis: PPMS Date of Symptom Onset: 06/05/09 Year of diagnosis: 2017 Relapse History Most Recent EDSS: Year of insidious progression: Time on DMT Month Year Month Year Multiple-Sclerosis -Disease-Modifying Therapies ocrelizumab Start: 2016 Stop: Multiple-Sclerosis - Disease-Modifying Therapies ocrelizumab Ethnicity: Dominant Hand: Right DMT safety labs: 10/2016 Hep C antibody negative Hep B core antibody negative Hep B surface antigen negative Hep B surface antibody positive Quantiferon gold negative HIV antibody negative VZV immune Important social/employment history to pull forward: 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 female who presents for follow-up. PPMS-on ocrelizumab since April 2017. Has been radiographically stable. Some decline recently with gait suspect element of deconditioning and orthostasis. Order home health for physical therapy. Fatigue somewhat chronically present, but recently improved. In the past may be multifactorial with contributions of deconditioning, orthostasis, atenolol. Not interested in stimulant at this time. Gait impairment-did not find benefit with Ampyra. Will order home health therapy. Spasticity-minimal, off medications. Vitamin D deficiency-on supplementation. PLAN: I recommend continuing ocrelizumab. Our treatment goal is No Evidence of Disease Activity (MURALI), meaning no multiple sclerosis attack, no new/enlarged T2 lesions or new alma lesions on MRI, and no change on neurological exam testing. We discussed this medication the midst of the coronavirus pandemic. She has not had any recent infectious complications. I recommend checking the following labs/tests for safety monitoring while on DMT: CBC with differential, CMP, immunoglobin levels to be checked every 6 months at the time of infusions. Regarding MRI surveillance, I recommend annual MRI of the brain this should be done within this calendar year. We will arrange for this to be done in April along with her next infusion. We will also include cervical and thoracic spine at this time given that it will have been 2017 since last imaged. For MS Symptom Management, I recommend the following plan: a. She does not take any symptomatic medications. We recommend a regular exercise program. We will order home health therapy for her. Denies any social work needs at this time I recommend continuing Vitamin D3 83666 IU once daily. Goal levels of Vitamin D are 50-100. She recently stopped taking this medication, but would recommend continuing. We will plan to recheck a serum level on her in 6 months. Smoking and second hand smoke lead to worsening of MS. She does not smoke. Inactivated influenza vaccine is recommended yearly. 6 weeks prior to Ocrelizumab infusion. Live/active vaccinations are contraindicated while on immunosuppression. She recently received her first dose of COVID vaccination. We reviewed that the ideal timing would be trying to finish these with about 1 to 2 months prior to infusions for maximal efficacy. She may have decreased efficacy given that she is having her COVID vaccinations in close proximity to her next infusion. Follow-up with wi April 2021. Willard Epperson MD [facility] Neuroimmunology/ Neuroinfectious Disease ([place] [facility], and [place] [facility]) General Neurology ([place] [facility] [place]) ([place]) [place] Address: [address] [place] [address], [address] Address [address] [facility], [address] [place] [address] [facility] [address] [place] [address] Chief Complaint: Neuro-immunology clinic follow up INTERIM HISTORY Brtiney Peraza is here for follow up. She is here receiving her ocrelizumab infusions today. She has done well without any infectious complications. She continues to report gait instability we discussed home health and she would be interested in renewing this. She no longer is doing any kind of driving. She receives services from [facility] [facility]. She denies any need for symptomatic medications at this time. She denies problems with fatigue, urinary urgency. Denies any problems with depression or anxiety. Reviewed that we would want to obtain MRI of the brain this calendar year. She just recently received the Covid vaccination #1, and will be due for next dose the . We reviewed that there may be decreased efficacy given the proximity of the vaccination to her infusion. ROS: System Denies Endorses Constitutional fever, night sweats, weight changes, chills, fatigue Skin rash, itching Eyes vision loss, double vision, blurred vision Heart chest pain, rapid heart beat/palpitations Lungs shortness of breath, wheezing Gastrointestinal abdominal pain, vomiting, diarrhea, constipation, blood in stool Genitourinary, kidney kidney stones, sexual dysfunction, blood in urine Endocrine diabetes, thyroid disease Hematologic/lymph anemia, bleeding, clotting problems, enlarged nodes Musculoskeletal pain, weakness, loss of muscle Psychiatric depression, anxiety, hallucinations Sleep Dream reenactment, snoring, apnea, fall asleep easily, RLS YANETH Snoring Bulbar Double vision, droopy eyelids, hearing loss, tinnitus slurred speech, incoordination, nausea vomiting, vertigo, dysphagia Neurological chronic unchanged gait instability Past Medical History: Diagnosis Date Multiple sclerosis (HCC) Seasonal allergies Tachycardia Past Surgical History: Procedure Laterality Date APPENDECTOMY TONSILLECTOMY WISDOM TOOTH EXTRACTION Social History Tobacco Use Smoking status: Never Smoker Smokeless tobacco: Never Used Substance Use Topics Alcohol use: No Drug use: No No family history on file. Allergies Allergen Reactions Ibuprofen Swelling Naproxen Sodium Hives, Itching and Swelling Zhetnvcskeuk-Amu-Yqyvjxxt tachycardia tachycardia Penicillins Hives Sulfa (Sulfonamide Antibiotics) Hives Tetracycline Hives Current Outpatient Medications Medication Sig Dispense Refill acetaminophen (TYLENOL) 500 MG tablet Take 500 mg by mouth every 6 (six) hours as needed for pain. AFLURIA QUAD [id number], PF, syringe ADMINISTERED AT DDM 0 atenolol (TENORMIN) 25 MG tablet Take 25 mg by mouth daily. 12 cholecalciferol (VITAMIN D3) 250 mcg (10,000 unit) capsule Take 1 (one) capsule (10,000 Units total) by mouth daily . 90 capsule 3 loratadine (CLARITIN) 10 mg tablet Take by mouth. ocrelizumab (OCREVUS IV) Infuse 600 mg into a venous catheter every 6 (six) months. No current facility-administered medications for this visit. GENERAL PHYSICAL EXAMINATION Vital Signs: 124/72, HR 70, RR 12 General Appearance: in no apparent distress, well nourished, conversant, cooperative MS PERFORMANCE TESTING Did not have time to stay for MS performance testing. NEUROLOGIC EXAMINATION Mental Status: Atten/concentration: awake and alert. Orientation: oriented x3 Language/Speech: Subtle underlying dysarthria with no aphasia this is her baseline. Cranial Nerves: Visual Buckner: normal CN 3,4,6 (EOM): Nystagmus with left gaze and upgaze Cranial Nerve 7 (Facial): normal facial symmetry and strength CN 8 (Auditory): proper hearing CN 11 (spinal access): full shoulder shrug equally Motor: Muscle Strength Normal muscle bulk No pronator drift Rapid alternating movements slowed in left hand Coordination/ Station & Gait: Gait was deferred as patient was receiving infusion Tremor: Resting tremor is absent. Intention tremor is absent. Postural tremor is absent. Action tremor is absent. DIAGNOSTIC TESTING OTHER LABS and STUDIES: Lab Results Component Value Date WBC 8.34 10/16/2020 HGB 15.1 10/16/2020 HCT 49.6 (H) 10/16/2020 MCV 88.9 10/16/2020 PLT 436 (H) 10/16/2020 Chemistry Component Value Date/Time NA 143 04/17/2020 0834 K 4.2 04/17/2020 0834 CL 106 04/17/2020 0834 BUN 31 (H) 04/17/2020 0834 CREATININE 0.58 (L) 04/17/2020 0834 CREATININE 0.6 09/28/2018 1147 Component Value Date/Time CALCIUM 9.9 04/17/2020 0834 ALKPHOS 88 10/16/2020 0845 AST 19 10/16/2020 0845 ALT 27 10/16/2020 0845 BILITOT <0.2 10/16/2020 0845 No results found for: HGBA1C No results found for: CHOL No results found for: HDL No results found for: LDLCALC No results found for: TRIG No results found for: CHOLHDL @RESULFAST(ALT,AST,TSH,B12,FOLATE ,CPK,NH3)@ Results for orders placed or performed during the hospital encounter of 10/18/19 MR Brain Without Contrast Narrative EXAMINATION: MR BRAIN WITHOUT CONTRAST HISTORY: ORDERING SYSTEM PROVIDED HISTORY: MS-eval for interval changes, TECHNOLOGIST PROVIDED HISTORY: Illness/Other Reason for exam: MS-eval for interval changes Encounter Type: Ongoing Additional signs and symptoms: leg pain ORDERING SYSTEM PROVIDED DIAGNOSIS CODES: G35 Multiple sclerosis (HCC) COMPARISON: 09/28/2018. TECHNIQUE: Multiplanar multisequence imaging of the brain without contrast. FINDINGS: No acute ischemia. Gradient echo shows no intracranial hemorrhage. Midline structures are satisfactory. The craniocervical junction is within limits of normal. There is underlying atrophy. Mastoid air cells and paranasal sinuses are grossly clear. Multiple black holes are present. There are extensive T2/FLAIR signal abnormalities in the periventricular and subcortical white matter. These do not appear significantly changed as compared to prior examination and would be compatible with the patient's diagnosis of demyelination. Impression No acute intracranial abnormality. Underlying atrophy and black holes. Stable burden of T2/FLAIR signal abnormalities compatible with demyelination. [employer] Workstation ID: [id number] Results for orders placed or performed during the hospital encounter of 09/28/18 MR Brain With And Without Contrast Narrative EXAMINATION: MR BRAIN WITH AND WITHOUT CONTRAST HISTORY: ORDERING SYSTEM PROVIDED HISTORY: MS protocol 3 T MRI for September 2018, TECHNOLOGIST PROVIDED HISTORY: Reason for exam: F/U MS, no new symptoms Illness/Other Encounter Type: Ongoing Additional signs and symptoms: none ORDERING SYSTEM PROVIDED DIAGNOSIS CODES: G35 Multiple sclerosis (HCC) COMPARISON: MRI brain with and without contrast, 08/17/2017. TECHNIQUE: Sagittal T1 and FLAIR, axial T1, T2, FLAIR, diffusion, T2 gradient, postcontrast axial, coronal and sagittal T1 images were obtained. CONTRAST: GADOTERATE MEGLUMINE 0.5 MMOL/ML (376.9 MG/ML) INTRAVENOUS SOLUTION - 12 mL, FINDINGS: The paranasal sinuses are clear. The mastoid air cells are clear. Nasopharynx is normal. Lieutenant Firefighter spaces are normal. Orbital contents are normal. Ventricles are normal in size. No hydrocephalus. No mass effect. No shift of midline. Redemonstration of numerous supratentorial and infratentorial white matter hyperintensities throughout the periventricular and juxtacortical white matter as well as within the corpus callosum. There are a few lesions in the cerebellum and brainstem. The lesion burden is severe. No new hyperintense lesions. There are numerous T1 hypointense black holes which are stable. No enhancing white matter lesions. Contrast: Dotarem New T2 lesions: None Enhancing lesions: Brain atrophy is stable. No acute infarction. No masses. Impression 1. Stable MRI of the brain. 2. Numerous supratentorial and infratentorial white matter hyperintensities consistent with the patient's history of multiple sclerosis are stable. No new lesions or enhancing lesions. 3. Stable brain atrophy. [facility] [place] Workstation ID: [id number] Total time spent, including over 50% or more spent face to face with the patient discussing the risk and benefits of any medications, reviewing available data and counseling patient on treatment plan was 30 minutes. The aforementioned impression & plan were discussed with the patient. documented in this encounter [facility] 10-16-2020 Instructions LiangLata RN - 10/16/2020 12:37 PM EDT Indications OCREVUS is indicated for the treatment of adult patients with relapsing or primary progressive forms of multiple sclerosis. Contraindications OCREVUS is contraindicated in patients with active hepatitis B virus infection and in patients with a history of life-threatening infusion reaction to OCREVUS. Warnings and Precautions Infusion Reactions OCREVUS can cause infusion reactions, which can include pruritus, rash, urticaria, erythema, bronchospasm, throat irritation, oropharyngeal pain, dyspnea, pharyngeal or laryngeal edema, flushing, hypotension, pyrexia, fatigue, headache, dizziness, nausea, and tachycardia. In multiple sclerosis (MS) clinical trials, the incidence of infusion reactions in OCREVUS-treated patients [who received methylprednisolone (or an equivalent steroid) and possibly other pre-medication to reduce the risk of infusion reactions prior to each infusion] was 34-40%, with the highest incidence with the first infusion. There were no fatal infusion reactions, but 0.3% of OCREVUS-treated MS patients experienced infusion reactions that were serious, some requiring hospitalization. Observe patients treated with OCREVUS for infusion reactions during the infusion and for at least one hour after completion of the infusion. Inform patients that infusion reactions can occur up to 24 hours after the infusion. Administer pre-medication (e.g., methylprednisolone or an equivalent corticosteroid, and an antihistamine) to reduce the frequency and severity of infusion reactions. The addition of an antipyretic (e.g., acetaminophen) may also be considered. For life-threatening infusion reactions, immediately and permanently stop OCREVUS and administer appropriate supportive treatment. For less severe infusion reactions, management may involve temporarily stopping the infusion, reducing the infusion rate, and/or administering symptomatic treatment. Infections A higher proportion of OCREVUS-treated patients experienced infections compared to patients taking REBIF or placebo. In DEYSI trials, 58% of OCREVUS-treated patients experienced one or more infections compared to 52% of REBIF-treated patients. In the PPMS trial, 70% of OCREVUS-treated patients experienced one or more infections compared to 68% of patients on placebo. OCREVUS increased the risk for upper respiratory tract infections, lower respiratory tract infections, skin infections, and herpes-related infections. OCREVUS was not associated with an increased risk of serious infections in MS patients. Delay OCREVUS administration in patients with an active infection until the infection is resolved. Respiratory Tract Infections A higher proportion of OCREVUS-treated patients experienced respiratory tract infections compared to patients taking REBIF or placebo. In DEYSI trials, 40% of OCREVUS-treated patients experienced upper respiratory tract infections compared to 33% of REBIF-treated patients, and 8% of OCREVUS-treated patients experienced lower respiratory tract infections compared to 5% of REBIF-treated patients. In the PPMS trial, 49% of OCREVUS-treated patients experienced upper respiratory tract infections compared to 43% of patients on placebo and 10% of OCREVUS-treated patients experienced lower respiratory tract infections compared to 9% of patients on placebo. The infections were predominantly mild to moderate and consisted mostly of upper respiratory tract infections and bronchitis. Herpes In active-controlled (DEYSI) clinical trials, herpes infections were reported more frequently in OCREVUS-treated patients than in REBIF-treated patients, including herpes zoster (2.1% vs. 1.0%), herpes simplex (0.7% vs. 0.1%), oral herpes (3.0% vs. 2.2%), genital herpes (0.1% vs. 0%), and herpes virus infection (0.1% vs. 0%). Infections were predominantly mild to moderate in severity. There were no reports of disseminated herpes. In the placebo-controlled (PPMS) clinical trial, oral herpes was reported more frequently in the OCREVUS-treated patients than in the patients on placebo (2.7% vs 0.8%). Progressive Multifocal Leukoencephalopathy (PML) PML is an opportunistic viral infection of the brain caused by the Asad Tejada (ASA) virus that typically only occurs in patients who are immunocompromised, and that usually leads to or severe disability. Although no cases of PML were identified in OCREVUS clinical trials, ASA virus infection resulting in PML has been observed in patients treated with other anti-CD20 antibodies and other MS therapies and has been associated with some risk factors (e.g., immunocompromised patients, polytherapy with immunosuppressants). At the first sign or symptom suggestive of PML, withhold OCREVUS and perform an appropriate diagnostic evaluation. MRI findings may be apparent before clinical signs or symptoms. Typical symptoms associated with PML are diverse, progress over days to weeks, and include progressive weakness on one side of the body or clumsiness of limbs, disturbance of vision, and changes in thinking, memory, and orientation leading to confusion and personality changes (per [employer]). Hepatitis B Virus (HBV) Reactivation There were no reports of hepatitis B reactivation in MS patients treated with OCREVUS. Fulminant hepatitis, hepatic failure, and caused by HBV reactivation have occurred in patients treated with other anti-CD20 antibodies. Perform HBV screening in all patients before initiation of treatment with OCREVUS. Do not administer OCREVUS to patients with active HBV confirmed by positive results for HBsAg and anti-HB tests. For patients who are negative for surface antigen [HBsAg] and positive for HB core antibody [HBcAb+] or are carriers of HBV [HBsAg+], consult liver disease experts before starting and during treatment. Possible Increased Risk of Immunosuppressant Effects with Other Immunosuppressants When initiating OCREVUS after an immunosuppressive therapy or initiating an immunosuppressive therapy after OCREVUS, consider the potential for increased immunosuppressive effect. OCREVUS has not been studied in combination with other MS therapies. Vaccinations Administer all immunizations according to immunization guidelines at least 4 weeks prior to initiation of OCREVUS for live or live-attenuated vaccines and, whenever possible, at least 2 weeks prior to initiation of OCREVUS for non-live vaccines. OCREVUS may interfere with the effectiveness of non-live vaccines. The safety of immunization with live or live-attenuated vaccines following OCREVUS therapy has not been studied, and vaccination with live-attenuated or live vaccines is not recommended during treatment and until B-cell repletion. Vaccination of Infants Born to Mothers Treated with OCREVUS During In infants of mothers exposed to OCREVUS during , do not administer live or live-attenuated vaccines before confirming the recovery of B-cell counts as measured by CD19+ B-cells. Depletion of B-cells in these infants may increase the risks from live or live-attenuated vaccines. You may administer non-live vaccines, as indicated, prior to recovery from B-cell depletion, but should consider assessing vaccine immune responses, including consultation with a qualified specialist, to assess whether a protective immune response was mounted. Malignancies An increased risk of malignancy with OCREVUS may exist. In controlled trials, malignancies, including breast cancer, occurred more frequently in OCREVUS-treated patients. Breast cancer occurred in 6 of 781 females treated with OCREVUS and none of 668 females treated with REBIF or placebo. Patients should follow standard breast cancer screening guidelines. Use in Specific Populations There are no adequate data on the developmental risk associated with use of OCREVUS in women. There are no data on B-cell levels in human neonates following maternal exposure to OCREVUS. However, transient peripheral B-cell depletion and lymphocytopenia have been reported in infants born to mothers exposed to other anti-CD20 antibodies during . OCREVUS is a humanized monoclonal antibody of an immunoglobulin G1 subtype and immunoglobulins are known to cross the placental barrier. There are no data on the presence of ocrelizumab in human milk, the effects on the breastfed , or the effects of the drug on milk production. Ocrelizumab was excreted in the milk of ocrelizumab-treated monkeys. Human IgG is excreted in human milk, and the potential for absorption of ocrelizumab to lead to B-cell depletion in the infant is unknown. The developmental and health benefits of should be considered along with the mother s clinical need for OCREVUS and any potential adverse effects on the breastfed infant from OCREVUS or from the underlying maternal condition. Females and Males of Reproductive Potential Women of childbearing potential should use contraception while receiving OCREVUS and for 6 months after the last infusion of OCREVUS. Most Common Adverse Reactions DEYSI: The most common adverse reactions in DEYSI trials (incidence ?10% and >REBIF) were upper respiratory tract infections (40%) and infusion reactions (34%). PPMS: The most common adverse reactions in PPMS trials (incidence ?10% and >placebo) were upper respiratory tract infections (49%), infusion reactions (40%), skin infections (14%), and lower respiratory tract infections (10%). For additional safety information, please see the full Prescribing Information and Medication Guide. Ocrevus medication guide given to and reviewed with pt. Pt voiced understanding. documented in this encounter [facility] 10-16-2020 Instructions Lata Liang RN - 10/16/2020 12:37 PM EDT Indications OCREVUS is indicated for the treatment of adult patients with relapsing or primary progressive forms of multiple sclerosis. Contraindications OCREVUS is contraindicated in patients with active hepatitis B virus infection and in patients with a history of life-threatening infusion reaction to OCREVUS. Warnings and Precautions Infusion Reactions OCREVUS can cause infusion reactions, which can include pruritus, rash, urticaria, erythema, bronchospasm, throat irritation, oropharyngeal pain, dyspnea, pharyngeal or laryngeal edema, flushing, hypotension, pyrexia, fatigue, headache, dizziness, nausea, and tachycardia. In multiple sclerosis (MS) clinical trials, the incidence of infusion reactions in OCREVUS-treated patients [who received methylprednisolone (or an equivalent steroid) and possibly other pre-medication to reduce the risk of infusion reactions prior to each infusion] was 34-40%, with the highest incidence with the first infusion. There were no fatal infusion reactions, but 0.3% of OCREVUS-treated MS patients experienced infusion reactions that were serious, some requiring hospitalization. Observe patients treated with OCREVUS for infusion reactions during the infusion and for at least one hour after completion of the infusion. Inform patients that infusion reactions can occur up to 24 hours after the infusion. Administer pre-medication (e.g., methylprednisolone or an equivalent corticosteroid, and an antihistamine) to reduce the frequency and severity of infusion reactions. The addition of an antipyretic (e.g., acetaminophen) may also be considered. For life-threatening infusion reactions, immediately and permanently stop OCREVUS and administer appropriate supportive treatment. For less severe infusion reactions, management may involve temporarily stopping the infusion, reducing the infusion rate, and/or administering symptomatic treatment. Infections A higher proportion of OCREVUS-treated patients experienced infections compared to patients taking REBIF or placebo. In DEYSI trials, 58% of OCREVUS-treated patients experienced one or more infections compared to 52% of REBIF-treated patients. In the PPMS trial, 70% of OCREVUS-treated patients experienced one or more infections compared to 68% of patients on placebo. OCREVUS increased the risk for upper respiratory tract infections, lower respiratory tract infections, skin infections, and herpes-related infections. OCREVUS was not associated with an increased risk of serious infections in MS patients. Delay OCREVUS administration in patients with an active infection until the infection is resolved. Respiratory Tract Infections A higher proportion of OCREVUS-treated patients experienced respiratory tract infections compared to patients taking REBIF or placebo. In DEYSI trials, 40% of OCREVUS-treated patients experienced upper respiratory tract infections compared to 33% of REBIF-treated patients, and 8% of OCREVUS-treated patients experienced lower respiratory tract infections compared to 5% of REBIF-treated patients. In the PPMS trial, 49% of OCREVUS-treated patients experienced upper respiratory tract infections compared to 43% of patients on placebo and 10% of OCREVUS-treated patients experienced lower respiratory tract infections compared to 9% of patients on placebo. The infections were predominantly mild to moderate and consisted mostly of upper respiratory tract infections and bronchitis. Herpes In active-controlled (DEYSI) clinical trials, herpes infections were reported more frequently in OCREVUS-treated patients than in REBIF-treated patients, including herpes zoster (2.1% vs. 1.0%), herpes simplex (0.7% vs. 0.1%), oral herpes (3.0% vs. 2.2%), genital herpes (0.1% vs. 0%), and herpes virus infection (0.1% vs. 0%). Infections were predominantly mild to moderate in severity. There were no reports of disseminated herpes. In the placebo-controlled (PPMS) clinical trial, oral herpes was reported more frequently in the OCREVUS-treated patients than in the patients on placebo (2.7% vs 0.8%). Progressive Multifocal Leukoencephalopathy (PML) PML is an opportunistic viral infection of the brain caused by the Asad Tejada (ASA) virus that typically only occurs in patients who are immunocompromised, and that usually leads to or severe disability. Although no cases of PML were identified in OCREVUS clinical trials, ASA virus infection resulting in PML has been observed in patients treated with other anti-CD20 antibodies and other MS therapies and has been associated with some risk factors (e.g., immunocompromised patients, polytherapy with immunosuppressants). At the first sign or symptom suggestive of PML, withhold OCREVUS and perform an appropriate diagnostic evaluation. MRI findings may be apparent before clinical signs or symptoms. Typical symptoms associated with PML are diverse, progress over days to weeks, and include progressive weakness on one side of the body or clumsiness of limbs, disturbance of vision, and changes in thinking, memory, and orientation leading to confusion and personality changes (per [employer]). Hepatitis B Virus (HBV) Reactivation There were no reports of hepatitis B reactivation in MS patients treated with OCREVUS. Fulminant hepatitis, hepatic failure, and caused by HBV reactivation have occurred in patients treated with other anti-CD20 antibodies. Perform HBV screening in all patients before initiation of treatment with OCREVUS. Do not administer OCREVUS to patients with active HBV confirmed by positive results for HBsAg and anti-HB tests. For patients who are negative for surface antigen [HBsAg] and positive for HB core antibody [HBcAb+] or are carriers of HBV [HBsAg+], consult liver disease experts before starting and during treatment. Possible Increased Risk of Immunosuppressant Effects with Other Immunosuppressants When initiating OCREVUS after an immunosuppressive therapy or initiating an immunosuppressive therapy after OCREVUS, consider the potential for increased immunosuppressive effect. OCREVUS has not been studied in combination with other MS therapies. Vaccinations Administer all immunizations according to immunization guidelines at least 4 weeks prior to initiation of OCREVUS for live or live-attenuated vaccines and, whenever possible, at least 2 weeks prior to initiation of OCREVUS for non-live vaccines. OCREVUS may interfere with the effectiveness of non-live vaccines. The safety of immunization with live or live-attenuated vaccines following OCREVUS therapy has not been studied, and vaccination with live-attenuated or live vaccines is not recommended during treatment and until B-cell repletion. Vaccination of Infants Born to Mothers Treated with OCREVUS During In infants of mothers exposed to OCREVUS during , do not administer live or live-attenuated vaccines before confirming the recovery of B-cell counts as measured by CD19+ B-cells. Depletion of B-cells in these infants may increase the risks from live or live-attenuated vaccines. You may administer non-live vaccines, as indicated, prior to recovery from B-cell depletion, but should consider assessing vaccine immune responses, including consultation with a qualified specialist, to assess whether a protective immune response was mounted. Malignancies An increased risk of malignancy with OCREVUS may exist. In controlled trials, malignancies, including breast cancer, occurred more frequently in OCREVUS-treated patients. Breast cancer occurred in 6 of 781 females treated with OCREVUS and none of 668 females treated with REBIF or placebo. Patients should follow standard breast cancer screening guidelines. Use in Specific Populations There are no adequate data on the developmental risk associated with use of OCREVUS in women. There are no data on B-cell levels in human neonates following maternal exposure to OCREVUS. However, transient peripheral B-cell depletion and lymphocytopenia have been reported in infants born to mothers exposed to other anti-CD20 antibodies during . OCREVUS is a humanized monoclonal antibody of an immunoglobulin G1 subtype and immunoglobulins are known to cross the placental barrier. There are no data on the presence of ocrelizumab in human milk, the effects on the breastfed infant, or the effects of the drug on milk production. Ocrelizumab was excreted in the milk of ocrelizumab-treated monkeys. Human IgG is excreted in human milk, and the potential for absorption of ocrelizumab to lead to B-cell depletion in the infant is unknown. The developmental and health benefits of should be considered along with the mother s clinical need for OCREVUS and any potential adverse effects on the breastfed infant from OCREVUS or from the underlying maternal condition. Females and Males of Reproductive Potential Women of childbearing potential should use contraception while receiving OCREVUS and for 6 months after the last infusion of OCREVUS. Most Common Adverse Reactions DEYSI: The most common adverse reactions in DEYSI trials (incidence ?10% and >REBIF) were upper respiratory tract infections (40%) and infusion reactions (34%). PPMS: The most common adverse reactions in PPMS trials (incidence ?10% and >placebo) were upper respiratory tract infections (49%), infusion reactions (40%), skin infections (14%), and lower respiratory tract infections (10%). For additional safety information, please see the full Prescribing Information and Medication Guide. Ocrevus medication guide given to and reviewed with pt. Pt voiced understanding. documented in this encounter [facility] 10-16-2020 History of Present illness Narrative Labs obtained with insertion of PIV, which will be used for the infusion today. Specimens labeled per policy and taken to the lab in the [facility] for processing. documented in this encounter [facility] 10-16-2020 History of Present illness Narrative Labs obtained with insertion of PIV, which will be used for the infusion today. Specimens labeled per policy and taken to the lab in the [facility] for processing. documented in this encounter [facility] Multiple [facility], primary progressive (HCC)- [facility] Multiple sclerosis, primary progressive (HCC)- Primary Vitamin D deficiency Paresis of lower extremity (HCC) Unspecified paralysis History of gait disorder [facility], [facility] ([facility])- [facility] Diagnosis Vitamin D deficiency [facility] Diagnosis Multiple sclerosis, primary progressive (HCC)- Primary Multiple sclerosis (HCC) Multiple sclerosis [facility] Diagnosis Multiple sclerosis, primary progressive (HCC)- Primary Vitamin D deficiency Spasticity Abnormal involuntary movements Ataxia Lack of coordination Cognitive impairment Unspecified persistent mental disorders due to conditions classified elsewhere [facility] Encounter for screening mammogram for breast cancer documented in this encounter [facility] note* Diagnosis Multiple sclerosis, primary progressive (HCC)- Primary [facility] Diagnostic Procedure Only (Routine) - Pending Review Specialty Diagnoses / Procedures Referred By Stormac t Referred To Contact [facility] Diagnoses Encounter for screening mammogram for breast cancer Procedures HUBERT SCREENING SCREENING MAMMOGRAPHY BI 2-VIEW BREAST INC Joan Palomino MD [address] [place] [address] [facility] [address] [place] [address] Referral ID Status Reason Start Date Expiration Date Visits Requested Visits Authorized [id number] Pending Review Auto-Generat ed Referral 12/01/2021 12/31/2022 1 1 [facility] Instructions * Patient Instructions - Kristina Riddle RN - 10/11/2017 1:37 PM EDT See Ocrevus medication guide attached to the end of this AVS. in this encounter* Patient Instructions - Willard Epperson MD - 01/19/2018 12:07 PM EDT There are several ways to control MS, including protecting the nervous system cells from dying as part of a degenerative process, especially by slowing the loss of brain tissue (atrophy). In recent years, several studies have supplied preliminary, but not yet conclusive evidence that taking the following supplement may be helpful in slowing neurodegeneration: Biotin 100 mg by mouth three times daily. This would require purchasing a compounded version from [employer] One source to purchase this is https://[employer]/[email or web address]-[email or web address]/ Physical Therapy: 1. Recommend return to PT for gait/balance training and update to HEP 2. Britney may benefit from a maintenance therapy plan with decreased frequency of visits but regular check-ins on a weekly or bi-weekly basis. in this encounter* Patient Instructions* Denise Carter RN - 10/12/2018 7:45 AM EDT Ocrevus patient precautions and education reviewed with patient. Patient voiced understanding and has paper copy. documented in this encounter* Patient Instructions* Denise Carter RN - 10/18/2019 8:27 AM EDT Indications OCREVUS is indicated for the treatment of adult patients with relapsing or primary progressive forms of multiple sclerosis. Contraindications OCREVUS is contraindicated in patients with active hepatitis B virus infection and in patients witha history of life-threatening infusion reaction to OCREVUS. Warnings and Precautions Infusion Reactions OCREVUS can cause infusion reactions, which can include pruritus, rash, urticaria, erythema, bronchospasm, throat irritation, oropharyngeal pain, dyspnea, pharyngeal or laryngeal edema, flushing, hypotension, pyrexia, fatigue, headache, dizziness, nausea, and tachycardia. In multiple sclerosis (MS) clinical trials, the incidence of infusion reactions in OCREVUS-treated patients [who received methylprednisolone (or an equivalent steroid) and possibly other pre-medication to reduce the risk of infusion reactions prior to each infusion] was 34-40%, with the highest incidence with the first infusion. There were no fatal infusion reactions, but 0.3% of OCREVUS-treated MS patients experienced infusion reactions that were serious, some requiring hospitalization. Observe patients treated with OCREVUS for infusion reactions during the infusion and for at least one hour after completion of the infusion. Inform patients that infusion reactions can occur up to 24hours after the infusion. Administer pre-medication (e.g., methylprednisolone or an equivalent corticosteroid, and an antihistamine) to reduce the frequency and severity of infusion reactions. The addition of an antipyretic (e.g., acetaminophen) may also be considered. For life-threatening infusion reactions, immediately and permanently stop OCREVUS and administer appropriate supportive treatment. For less severe infusionreactions, management may involve temporarily stopping the infusion, reducing the infusion rate, and/or administering symptomatic treatment. Infections A higher proportion of OCREVUS-treated patients experienced infections compared to patients taking REBIF or placebo. In DEYSI trials, 58% of OCREVUS-treated patients experienced one or more infections compared to 52% of REBIF-treated patients. In the PPMS trial, 70% of OCREVUS-treated patients experienced one or more infections compared to 68% of patients on placebo. OCREVUS increased the risk for upper respiratory tract infections, lower respiratory tract infections, skin infections, and herpes-related infections. OCREVUS was not associated with an increased risk of serious infections in MS patients. Delay OCREVUS administration in patients with an active infection until the infection is reso lved. Respiratory Tract Infections A higher proportion of OCREVUS-treated patients experienced respiratory tract infections compared to patients taking REBIF or placebo. In DEYSI trials, 40% of OCREVUS-treated patients experienced upperrespiratory tract infections compared to 33% of REBIF-treated patients, and 8% of OCREVUS-treated patients experienced lower respiratory tract infections compared to 5% of REBIF-treated patients. In the PPMS trial, 49% of OCREVUS-treated patients experienced upper respiratory tract infections compared to 43% of patients on placebo and 10% of OCREVUS- treated patients experienced lower respiratory tract infections compared to 9% of patients on placebo. The infections were predominantly mild to moderate and consisted mostly of upper respiratory tract infections and bronchitis. Herpes In active-controlled (DEYSI) clinical trials, herpes infections were reported more frequently in OCREVUS-treated patients than in REBIF-treated patients, including herpes zoster (2.1% vs. 1.0%), herpessimplex (0.7% vs. 0.1%), oral herpes (3.0% vs. 2.2%), genital herpes (0.1% vs. 0%), and herpes virus infection (0.1% vs. 0%). Infections were predominantly mild to moderate in severity. There were no reports of disseminated herpes. In the placebo-controlled (PPMS) clinical trial, oral herpes was reported more frequently in the OCREVUS-treated patients than in the patients on placebo (2.7% vs 0.8%). Progressive Multifocal Leukoencephalopathy (PML) PML is an opportunistic viral infection of the brain caused by the Asad Tejada (ASA) virus that typically only occurs in patients who are immunocompromised, and that usually leads to or severe disability. Although no cases of PML were identified in OCREVUS clinical trials, ASA virus infection resulting in PML has been observed in patients treated with other anti-CD20 antibodies and other MS therapies and has been associated with some risk factors (e.g., immunocompromised patients, polytherapy with immunosuppressants). At the first sign or symptom suggestive of PML, withhold OCREVUS and perform an appropriate diagnostic evaluation. MRI findings may be apparent before clinical signs or symptoms. Typical symptoms associated with PML are diverse, progress over days to weeks, and include progressive weakness on one side of the body or clumsiness of limbs, disturbance of vision, and changes in thinking, memory, and orientation leading to confusion and personality changes (per [employer]). Hepatitis B Virus (HBV) Reactivation There were no reports of hepatitis B reactivation in MS patients treated with OCREVUS. Fulminant hepatitis, hepatic failure, and caused by HBV reactivation have occurred in patients treated with other anti-CD20 antibodies. Perform HBV screening in all patients before initiation of treatment with OCREVUS. Do not administer OCREVUS to patients with active HBV confirmed by positive results forHBsAg and anti-HB tests. For patients who are negative for surface antigen [HBsAg] and positive for HB core antibody [HBcAb+] or are carriers of HBV [HBsAg+], consult liver disease experts before starting and during treatment. Possible Increased Risk of Immunosuppressant Effects with Other Immunosuppressants When initiating OCREVUS after an immunosuppressive therapy or initiating an immunosuppressive therapy after OCREVUS, consider the potential for increased immunosuppressive effect. OCREVUS has not been studied in combination with other MS therapies. Vaccinations Administer all immunizations according to immunization guidelines at least 4 weeks prior to initiation of OCREVUS for live or live-attenuated vaccines and, whenever possible, at least 2 weeks prior to initiation of OCREVUS for non-live vaccines. OCREVUS may interfere with the effectiveness of non-live vaccines. The safety of immunization with live or live-attenuated vaccines following OCREVUS therapy has not been studied, and vaccination with live-attenuated or live vaccines is not recommended during treatment and until B-cell repletion. Vaccination of Infants Born to Mothers Treated with OCREVUS During In infants of mothers exposed to OCREVUS during , do not administer live or live-attenuated vaccines before confirming the recovery of B-cell counts as measured by CD19+ B-cells. Depletion of B-cells in these infants may increase the risks from live or live-attenuated vaccines. You may administer non-live vaccines, as indicated, prior to recovery from B- cell depletion, but should consider assessing vaccine immune responses, including consultation with a qualified specialist, to assess whether a protective immune response was mounted. Malignancies An increased risk of malignancy with OCREVUS may exist. In controlled trials, malignancies, including breast cancer, occurred more frequently in OCREVUS- treated patients. Breast cancer occurred in 6 of 781 females treated with OCREVUS and none of 668 females treated with REBIF or placebo. Patients should follow standard breast cancer screening guidelines. Use in Specific Populations There are no adequate data on the developmental risk associated with use of OCREVUS in women. There are no data on B-cell levels in human neonates following maternal exposure to OCREVUS. However, transient peripheral B-cell depletion and lymphocytopenia have been reported in infants born to mothers exposed to other anti-CD20 antibodies during . OCREVUS is a humanized monoclonal antibody of an immunoglobulin G1 subtype and immunoglobulins are known to cross the placental barrier. There are no data on the presence of ocrelizumab in human milk, the effects on the breastfed infant, or the effects of the drug on milk production. Ocrelizumab was excreted in the milk of ocrelizumab-treated monkeys. Human IgG is excreted in human milk, and the potential for absorption of ocrelizumab to lead to B-cell depletion in the infant is unknown. The developmental and health benefits of should be considered along with the mother s clinical need for OCREVUS and any potentialadverse effects on the breastfed infant from OCREVUS or from the underlying maternal condition. Females and Males of Reproductive Potential Women of childbearing potential should use contraception while receiving OCREVUS and for 6 months after the last infusion of OCREVUS. Most Common Adverse Reactions DEYSI: The most common adverse reactions in DEYSI trials (incidence ?10% and >REBIF) were upper respiratory tract infections (40%) and infusion reactions (34%). PPMS: The most common adverse reactions in PPMS trials (incidence ?10% and >placebo) were upper respiratory tract infections (49%), infusion reactions (40%), skin infections (14%), and lower respiratory tract infections (10%). For additional safety information, please see the full Prescribing Information and Medication Guide. documented in this encounter* Patient Instructions* Favors-Libia Claudio RN - 04/17/2020 10:33 AM EST Indications OCREVUS is indicated for the treatment of adult patients with relapsing or primary progressive forms of multiple sclerosis. Contraindications OCREVUS is contraindicated in patients with active hepatitis B virus infection and in patients witha history of life-threatening infusion reaction to OCREVUS. Warnings and Precautions Infusion Reactions OCREVUS can cause infusion reactions, which can include pruritus, rash, urticaria, erythema, bronchospasm, throat irritation, oropharyngeal pain, dyspnea, pharyngeal or laryngeal edema, flushing, hypotension, pyrexia, fatigue, headache, dizziness, nausea, and tachycardia. In multiple sclerosis (MS) clinical trials, the incidence of infusion reactions in OCREVUS-treated patients [who received methylprednisolone (or an equivalent steroid) and possibly other pre-medication to reduce the risk of infusion reactions prior to each infusion] was 34-40%, with the highest incidence with the first infusion. There were no fatal infusion reactions, but 0.3% of OCREVUS-treated MS patients experienced infusion reactions that were serious, some requiring hospitalization. Observe patients treated with OCREVUS for infusion reactions during the infusion and for at least one hour after completion of the infusion. Inform patients that infusion reactions can occur up to 24hours after the infusion. Administer pre-medication (e.g., methylprednisolone or an equivalent corticosteroid, and an antihistamine) to reduce the frequency and severity of infusion reactions. The addition of an antipyretic (e.g., acetaminophen) may also be considered. For life-threatening infusion reactions, immediately and permanently stop OCREVUS and administer appropriate supportive treatment. For less severe infusionreactions, management may involve temporarily stopping the infusion, reducing the infusion rate, and/or administering symptomatic treatment. Infections A higher proportion of OCREVUS-treated patients experienced infections compared to patients taking REBIF or placebo. In DEYSI trials, 58% of OCREVUS-treated patients experienced one or more infections compared to 52% of REBIF-treated patients. In the PPMS trial, 70% of OCREVUS-treated patients experienced one or more infections compared to 68% of patients on placebo. OCREVUS increased the risk for upper respiratory tract infections, lower respiratory tract infections, skin infections, and herpes-related infections. OCREVUS was not associated with an increased risk of serious infections in MS patients. Delay OCREVUS administration in patients with an active infection until the infection is reso lved. Respiratory Tract Infections A higher proportion of OCREVUS-treated patients experienced respiratory tract infections compared to patients taking REBIF or placebo. In DEYSI trials, 40% of OCREVUS-treated patients experienced upperrespiratory tract infections compared to 33% of REBIF-treated patients, and 8% of OCREVUS-treated patients experienced lower respiratory tract infections compared to 5% of REBIF-treated patients. In the PPMS trial, 49% of OCREVUS-treated patients experienced upper respiratory tract infections compared to 43% of patients on placebo and 10% of OCREVUS- treated patients experienced lower respiratory tract infections compared to 9% of patients on placebo. The infections were predominantly mild to moderate and consisted mostly of upper respiratory tract infections and bronchitis. Herpes In active-controlled (DEYSI) clinical trials, herpes infections were reported more frequently in OCREVUS-treated patients than in REBIF-treated patients, including herpes zoster (2.1% vs. 1.0%), herpessimplex (0.7% vs. 0.1%), oral herpes (3.0% vs. 2.2%), genital herpes (0.1% vs. 0%), and herpes virus infection (0.1% vs. 0%). Infections were predominantly mild to moderate in severity. There were no reports of disseminated herpes. In the placebo-controlled (PPMS) clinical trial, oral herpes was reported more frequently in the OCREVUS-treated patients than in the patients on placebo (2.7% vs 0.8%). Progressive Multifocal Leukoencephalopathy (PML) PML is an opportunistic viral infection of the brain caused by the Asad Tejada (ASA) virus that typically only occurs in patients who are immunocompromised, and that usually leads to or severe disability. Although no cases of PML were identified in OCREVUS clinical trials, ASA virus infection resulting in PML has been observed in patients treated with other anti-CD20 antibodies and other MS therapies and has been associated with some risk factors (e.g., immunocompromised patients, polytherapy with immunosuppressants). At the first sign or symptom suggestive of PML, withhold OCREVUS and perform an appropriate diagnostic evaluation. MRI findings may be apparent before clinical signs or symptoms. Typical symptoms associated with PML are diverse, progress over days to weeks, and include progressive weakness on one side of the body or clumsiness of limbs, disturbance of vision, and changes in thinking, memory, and orientation leading to confusion and personality changes (per [employer]). Hepatitis B Virus (HBV) Reactivation There were no reports of hepatitis B reactivation in MS patients treated with OCREVUS. Fulminant hepatitis, hepatic failure, and caused by HBV reactivation have occurred in patients treated with other anti-CD20 antibodies. Perform HBV screening in all patients before initiation of treatment with OCREVUS. Do not administer OCREVUS to patients with active HBV confirmed by positive results forHBsAg and anti-HB tests. For patients who are negative for surface antigen [HBsAg] and positive for HB core antibody [HBcAb+] or are carriers of HBV [HBsAg+], consult liver disease experts before starting and during treatment. Possible Increased Risk of Immunosuppressant Effects with Other Immunosuppressants When initiating OCREVUS after an immunosuppressive therapy or initiating an immunosuppressive therapy after OCREVUS, consider the potential for increased immunosuppressive effect. OCREVUS has not been studied in combination with other MS therapies. Vaccinations Administer all immunizations according to immunization guidelines at least 4 weeks prior to initiation of OCREVUS for live or live-attenuated vaccines and, whenever possible, at least 2 weeks prior to initiation of OCREVUS for non-live vaccines. OCREVUS may interfere with the effectiveness of non-live vaccines. The safety of immunization with live or live-attenuated vaccines following OCREVUS therapy has not been studied, and vaccination with live-attenuated or live vaccines is not recommended during treatment and until B-cell repletion. Vaccination of Infants Born to Mothers Treated with OCREVUS During In infants of mothers exposed to OCREVUS during , do not administer live or live-attenuated vaccines before confirming the recovery of B-cell counts as measured by CD19+ B-cells. Depletion of B-cells in these infants may increase the risks from live or live-attenuated vaccines. You may administer non-live vaccines, as indicated, prior to recovery from B- cell depletion, but should consider assessing vaccine immune responses, including consultation with a qualified specialist, to assess whether a protective immune response was mounted. Malignancies An increased risk of malignancy with OCREVUS may exist. In controlled trials, malignancies, including breast cancer, occurred more frequently in OCREVUS- treated patients. Breast cancer occurred in 6 of 781 females treated with OCREVUS and none of 668 females treated with REBIF or placebo. Patients should follow standard breast cancer screening guidelines. Use in Specific Populations There are no adequate data on the developmental risk associated with use of OCREVUS in women. There are no data on B-cell levels in human neonates following maternal exposure to OCREVUS. However, transient peripheral B-cell depletion and lymphocytopenia have been reported in infants born to mothers exposed to other anti-CD20 antibodies during . OCREVUS is a humanized monoclonal antibody of an immunoglobulin G1 subtype and immunoglobulins are known to cross the placental barrier. There are no data on the presence of ocrelizumab in human milk, the effects on the breastfed infant, or the effects of the drug on milk production. Ocrelizumab was excreted in the milk of ocrelizumab-treated monkeys. Human IgG is excreted in human milk, and the potential for absorption of ocrelizumab to lead to B-cell depletion in the is unknown. The developmental and health benefits of should be considered along with the mother s clinical need for OCREVUS and any potentialadverse effects on the breastfed infant from OCREVUS or from the underlying maternal condition. Females and Males of Reproductive Potential Women of childbearing potential should use contraception while receiving OCREVUS and for 6 months after the last infusion of OCREVUS. Most Common Adverse Reactions DEYSI: The most common adverse reactions in DEYSI trials (incidence ?10% and >REBIF) were upper respiratory tract infections (40%) and infusion reactions (34%). PPMS: The most common adverse reactions in PPMS trials (incidence ?10% and >placebo) were upper respiratory tract infections (49%), infusion reactions (40%), skin infections (14%), and lower respiratory tract infections (10%). For additional safety information, please see the full Prescribing Information and Medication Guide. documented in this encounter* Patient Instructions* Ariela Gama RN - 04/12/2019 7:39 AM EST MEDICATION GUIDE OCREVUS (oak-rev-us) (ocrelizumab) injection1 for intravenous use What Is the most Important information I should know about OCREVUS? OCREVUS can cause serious side effects, Including: ; Infusion reactions: OCREVUS can cause infusion reactions that can be serious and require you to be hospitalized. You will be monitored during your infusion and for at least 1 hour after each infusion of OCREVUS for signs and symptoms of an Infusion reaction. Tell your healthcare provider or nurseif you get any of these symptoms: o Itchy skin o trouble breathing o nausea o shortness of breath o rash o throat irritation or pain o headache o fatigue o hives o feeling faint o swelling of the throat o fast heart beat o tiredness o fever o dizziness o coughing or o redness on your face wheezing (flushing) These infusion reactions can happen for up to 24 hours after your Infusion. It is important that you call your healthcare provider right away if you get any of the signs or symptoms listed above after each infusion. If you get infusion reactions, your healthcare provider may need to stop or slow down the rate of your infusion. ; Infection: o OCREVUS increases your risk of getting upper respiratory tract infections, lower respiratory tract infections, skin Infections, and herpes infections. Tell your healthcare provider if you have an infection or have any of the following signs of infection including fever, chills, a cough that does not go away, or signs of herpes (such as cold sores, shingles, or genital sores). These signs can happen during treatment or after you have received your last dose of OCREVUS. If you have an active infection, your healthcare provider should delay your treatment with OCREVUS until your infection is gone. o Progressive Multifocal Leukoencephalopathy (PML): Although no cases have been seen with OCREVUS treatment in clinical trials, PML may happen with OCREVUS. PML is a rare brain infection that usuallyleads to or severe disability. Tell your healthcare provider right away If you have any new or worsening neurologic signs or symptoms. These may include problems with thinking, balance, eyesight, weakness on 1 side of your body, strength, or using your arms or legs. o Hepatitis B virus (HBV) reactivation: Before starting treatment with OCREVUS, your healthcare provider will do blood tests to check for hepatitis B viral infection. If you have ever had hepatitis Bvirus Infection, the hepatitis B virus may become active again during or after treatment with OCREVUS. Hepatitis B virus becoming active again (called reactivation) may cause serious liver problems including liver failure or . Your healthcare provider will monitor you if you are at risk for hepatitis B virus reactivation during treatment and after you stop receiving OCREVUS. o Weakened Immune system: OCREVUS taken before or after other medicines that weaken the immune system could increase your risk of getting Infections. What is OCREVUS? OCREVUS is a prescription medicine used to treat adults with relapsing or primary progressive formsof multiple sclerosis. It is not known if OCREVUS is safe or effective in children. Who should not receive OCREVUS? ; Do not receive OCREVUS if you have an active hepatitis B virus (HBV) infection. ; Do not receive OCREVUS if you have had a life threatening allergic reaction to OCREVUS. Tell yourhealthcare provider if you have had an allergic reaction to OCREVUS or any of its ingredients in the past. See What are the ingredients In OCREVUS? for a complete list of ingredients in OCREVUS. Before receiving OCREVUS, tell your healthcare provider about all of your medlcal conditions, Including if you: ; have or think you have an infection. See What Is the most important information I should know about OCREVUS? ; have ever taken, take, or plan to take medicines that affect your immune system, or other treatments for MS. These medicines could increase your risk of getting an infection. ; have ever had hepatitis B or are a carrier of the hepatitis B virus. ; have had a recent vaccination or are scheduled to receive any vaccinations. o You should receive any required nve' or 'live-attenuated' vaccines at least 4 weeks before you start treatment with OCREVUS. You should not receive 'live' or 'live-attenuated' vaccines while you are being treated with OCREVUS and until your healthcare provider tells you that your immune system isno longer weakened. o When possible, you should receive any 'non live' vaccines at least 2 weeks before you start treatment with OCREVUS. If you would like to receive any non- live (inactivated) vaccines, including the seasonal flu vaccine, while you are being treated with OCREVUS, talk to your healthcare provider. o If you are or planning to become talk to your doctor about vaccinations for your baby, as some precautions may be needed. ; are , think that you might be , or plan to become . It is not known if OCREVUS will harm your unborn baby. You should use control (contraception) during treatment withOCREVUS and for 6 months after your last infusion of OCREVUS. ; are or plan to breastfeed. It is not known if OCREVUS passes into your breast milk.Talk to your healthcare provider about the best way to feed your baby if you take OCREVUS. Tell your healthcare provider about all the medicines you take, including prescription and tmbj-jhd-[id number] medicines, vitamins_._and herbal supplements. _ _ _ How will I receive OCREVUS? ; OCREVUS Is given through a needle placed in your vein (intravenous infusion) in your arm. ; Before treatment with OCREVUS, your healthcare provider will give you a corticosteroid medicine and an antihistamine to help reduce infusion reactions (make them less frequent and less severe). Youmay also receive other medicines to help reduce Infusion reactions. See 'What Is the most Importantinformation I should know about OCREVUS? ; Your first full dose of OCREVUS will be given as 2 separate infusions, 2 weeks apart. Each infusion will last about 2 hours and 30 minutes. ; Your next doses of OCREVUS will be given as one infusion every 6 months. These infusions will last about 3 hours and 30 minutes. What are the possible side effects of OCREWS? OCREVUS may cause serious side effects, Including: ; See What is the most Important information I should know about OCREVUS? ; Risk of cancers (malignancies) including breast cancer. Follow your healthcare provider's instructions about standard screening guidelines for breast cancer. Most common side effects include Infusion reactions and infections. See 'What is the most importantinformation I should know about OCREVUS? These are not all the posslble side effects of OCREVUS. Call your doctor for medical advice about side effects. You may report side effects to FDA at 7-357-LHW-3208. General Information about the safe and effective use of OCREWS. Medicines are sometimes prescribed for purposes other than those listed in a Medication Gul[place]. Do not use OCREVUS for a condition for which it was not prescribed. Do not give OCREVUS to other people,even if they have the same symptoms that you have. It may harm them. You can ask your pharmacist or healthcare provider for information aboutOCREVUS that Is written for health professionals. What are the Ingredients In OCREVUS? Active Ingredient: ocrelizumab Inactive Ingredients: glacial acetic acid, polysorbate 20, sodium acetate trihydrate, trehalose dihydrate. Manufactured by: [employer] A Member of the [employer], [address] [place] [address], [place] [address] [place]. License No.[id number] For more lnformation, go to www.[employer] or_call 1-362-435-38BZ. This Medication Guide has been approved by the U.S. Food and Drug Administration Revised: 04/2018 documented in this encounter Assessments Diagnosis Multiple sclerosis (HCC) - P rimary Multiple sclerosis Diagnosis Multiple sclerosis (HCC) Multiple sclerosis Diagnosis Multiple sclerosis (HCC) - P rimary Multiple sclerosis Ataxia Lack of coordination Spasticity Abnormal involuntary movements Diagnosis Multiple sclerosis (HCC) - P rimary Multiple sclerosis Anxiety Anxiety state, unspecified Diagnosis Multiple sclerosis (HCC) - P rimary Multiple sclerosis Diagnosis Multiple sclerosis (HCC) - P rimary Multiple sclerosis Diagnosis Multiple sclerosis (HCC) - P rimary Multiple sclerosis Paresis of lower extremity ( HCC) Unspecified paralysis Ataxia Lack of coordination Muscle spasm Spasm of muscle Diagnosis Multiple sclerosis (HCC) Multiple sclerosis Diagnosis Multiple sclerosis, primary progressive (HCC)- Primary Diagnosis Multiple sclerosis (HCC)- Primary Multiple sclerosis Diagnosis Multiple sclerosis (HCC) Multiple sclerosis Diagnosis Multiple sclerosis, primary progressive (HCC) Diagnosis Multiple sclerosis, primary progressive (HCC)- Primary Diagnosis Multiple sclerosis (HCC)- Primary Multiple sclerosis Fatigue, unspecified type Orthostasis Orthostatic hypotension Falls frequently Personal history of fall Diagnosis Multiple sclerosis, primary progressive (HCC)- Primary Multiple sclerosis (HCC) Multiple sclerosis Diagnosis Multiple sclerosis (HCC)- Primary Multiple sclerosis Therapeutic drug monitoring Encounter for therapeutic drug monitoring Reason for Referral Status Reason Specialty Diagnoses / Procedures Referre d By Contact Referred To Contact Closed Radiology Diagnoses Multiple sclerosis (HCC) Procedures MR Brain With And Without Contrast Willard Epperson MD [address] [place] [address] Status Reason Specialty Diagnoses / Procedures Referred By Contact Referred To Contact Authorized Specialty Services Required/Patien t's Best Interest Physical Therapy Diagnoses Multiple sclerosis (HCC) Willard Epperson MD [address] [place] [address] Status Reason Specialty Diagnoses / Procedures Referre d By Contact Referred To Contact Closed Radiology Diagnoses Multiple sclerosis (HCC) Procedures MR Brain Without Contrast Willard Epperson MD [address] [place] [address] Status Reason Specialty Diagnoses / Procedures Referred By Contact Referred To Contact Closed Specialty Services Required/Patien t's Best Interest Beekeeper Farmer Diagnoses Multiple sclerosis (HCC) Willard Epperson MD [address] [place] [address] Dory Velez LISW-S Status Reason Specialty Diagnoses / Procedures Referred By Contact Referred To Contact New Request Radiology Diagnoses Multiple sclerosis, primary progressive (HCC) Procedures MR Thoracic Spine With And Without Contrast Willard Epperson MD [address] [place] [address] Status Reason Specialty Diagnoses / Procedures Referred By Contact Referred To Contact New Request Radiology Diagnoses Multiple sclerosis, primary progressive (HCC) Procedures MR Cervical Spine With And Without Contrast Willard Epperson MD [address] [facility] [address] [place] [address] Status Reason Specialty Diagnoses / Procedures Referred By Contact Referred To Contact New Request Radiology Diagnoses Multiple sclerosis, primary progressive (HCC) Procedures MR Brain With And Without Contrast Willard Epperson MD [facility] [address] [address] [place] [address] Status Reason Specialty Diagnoses / Procedures Referred By Contact Referred To Contact Authorized Specialty Services Required/Patie nt's Best Interest Home Health Services Diagnoses Multiple sclerosis, primary progressive (HCC) Willard Epperson MD [facility] [address] [place] [address] Specialty Diagnoses / Procedures Referred By Contac t Referred To Contact Beekeeper Farmer Diagnoses Multiple sclerosis, primary progressive (HCC) Willard Epperson MD [facility] [address] [place] [address] Dory Velez LISW-S Referral ID Status Reason Start Date Expiration Date V isits Requested Visits Authorized [id number] Closed Specialty Services Required/[place] ent's Best Interest 04/09/2021 04/09/2022 1 1 Advance Directives No Advanced Directives Records FoundDocuments on File Type Date Recorded Patient Collections Specialist Expl anation Advance Directives and Livin g Will 04/12/2019 8:19 AM Documents on File Type Date Recorded Patient Collections Specialist Expl anation Advance Directives and Livin g Will 04/12/2019 8:19 AM Documents on File Type Date Recorded Patient Collections Specialist Expl anation Advance Directives and Livin g Will 10/18/2019 6:47 AM Documents on File Type Date Recorded Patient Collections Specialist Expl anation Advance Directives and Livin g Will 10/18/2019 6:47 AM Documents on File Type Date Recorded Patient Collections Specialist Expl anation Advance Directives and Livin g Will 04/17/2020 6:47 AM Documents on File Type Date Recorded Patient Collections Specialist Expl anation Advance Directives and Livin g Will 04/17/2020 6:47 AM Documents on File Type Date Recorded Patient Collections Specialist Expl anation Advance Directives and Livin g Will 10/16/2020 6:47 AM Documents on File Type Date Recorded Patient Collections Specialist Expl anation Advance Directives and Livin g Will 10/16/2020 6:47 AM Documents on File Type Date Recorded Patient Collections Specialist Expl anation Advance Directives and Livin g Will 04/09/2021 6:47 AM Documents on File Type Date Recorded Patient Collections Specialist Expl anation Advance Directives and Livin g Will 04/09/2021 6:47 AM History of Present Illness * Jeanne Hilario CMA - 02/13/2017 1:04 PM EDT Faxed [facility] ([phone]) a physical therapy order along with face sheet to call patient to schedule. in this encounter* Denise Carter RN - 10/12/2018 3:19 PM EDT 1330: Patient's heartrate at 130 bpm. Patient is asymptomatic for any tachycardic issues or other problems. Patient also states she forgot to take her atenolol this am and she takes it specifically for tachycardia. RN called Dr Epperson and reviewed patient's vital signs and her missing her am atenolol dose. Dr Epperson OK'd patient to be discharged to home and to take her medication as soon as she wasthere. RN advised patient to not hesitate to call /911 if any serious issues arose tonight. Patient and caregiver voiced understanding. documented in this encounter* Willard Epperson MD - 04/16/2019 8:02 PM EST [facility] Follow Up Note 04/12/2019 IMPRESSIONS Britney Peraza is a pleasant 59 y.o. handed female with multiple sclerosis on disease modifying therapy with Ocrelizumab (Ocrevus). Current active / ongoing chronic problems include monitoring of MS over time, issues related to safety and ongoing monitoring of ocrelizumab, mildly worsening gait instability and the need for physical therapy. Based on today's clinical history and neurological testing, her disease phenotype is progressive MSwith stability and no recent signs of activity. She has been treated with Ocrelizumab infusions since 04/2017. We reviewed the ongoing risk / benefit of Ocrevus treatments we agreed to continue Ocrelizumab (Ocrevus) therapy. PLAN RELATED TO DISEASE MODIFYING THERAPY 1. We will continue to administer Ocrevus IV maintenance infusions once every 6 months.Britney Peraza agrees to be evaluated in MS clinic every 3-6 months while on this therapy. 2. While on Ocrevus, She agrees to use appropriate forms of contraception, report any symptoms of infections, and to discuss any anticipated vaccinations/immunizations with her MS providers. 3. Given that Britney Peraza is on the Ocrevus, we will order the following safety laboratories/tests: Today we will check CBC with differential, CMP, vitamin D, and immunoglobulin levels. 4. Infusion Reactions can occur during Ocrevus infusions- In the clinical trials and in our experience here at [facility], most infusion related reactions are mild to moderate, occur at the first infusion, and are managed with infusion adjustments and treatment of symptoms. 5. Infection Risk: Ocrelizumab may increase the risk of infections such as sinusitis, upper respiratory tract infections,urinary tract infections and pneumonia. Reactivation of hepatitis B has been seen with another similar type of medication. 6. Vaccinations/Immunizations-Ocre has not been studied in conjunction with live or live attenuatedvaccinations. It may decrease the effectiveness of immunizations. We recommend against live attenuated vaccines. We also recommend vaccinations be administered 6 weeks prior to anupcoming Ocre infusion. We strongly recommend talking to your MS practitioner before having any vaccination / immunizations 7. Cancer Screening: There was no statistically significant treatment-related increase in cancer risk in the Ocrelizumab clinical trials. We recommend standard of care cancer screening (inclucding breast cancer) for all of our MS patients. 8. - Ocrelizumabs effects on are unknown. Women of childbearing potential must agree to use contraception and avoid for at least 6 months after their last infusion and only after clearance from their MS practitioner 9. Next MRI of the brain will be due in September 2019. PLAN RELATED TO SYMPTOMATIC THERAPIES 1. We recommend continuing current symptomatic medications without change (ampyra 10 mg BID). 2. We will place referral for outpatient therapy. DIET AND HEALTHY LIFESTYLE WITH MS 1. Plan to repeat serum vitamin D level to see if adjustments in daily dose needed. 2. We will refer for outpatient therapy for gait stability. 3. Patient does not smoke. PLAN RELATED TO CLINIC FOLLOW UP 1. I will schedule a follow-up visit in approximately October 2019. We will try to time her MRI and infusion on the same day. 2. Please arrive 30 minutes before your appointment to allow time to complete paperwork and MS specific testing prior to seeing your MS specialist. If you arrive late you will be asked to reschedule your visit. 3. Please sign up for the [employer] patient portal. [employer] provides assess to your medical record and test results, allows you to communicate with your care providers, and allows you to complete patient questionnaires prior to each clinic visit. 4. When your testing is completed, your MS care team will review all results and contact you if a finding requires follow up before your next visit. Otherwisee, we will discuss your test results [id number] at your next clinic visit. Many of your testing results, however, can be reviewed online through [employer]. MS Disease Summary Primary Neurological Diagnosis and Date Given PPMS- 2017 Age of Symptom Onset Approximately 2011 Treatment History DMT Start Date End Date Reason for DC Ocrelizumab 04/13/2017 Other physicians: Dr. Welch (PCP) CHIEF COMPLAINT MS clinic follow up CONTEMPORARY HISTORY Britney was last seen by me in September 2018. She is currently receiving her ocrelizumab infusion today. She has been doing well. She denies any new complaints. Her sister feels that her gait is unsteady and that she would benefit from a repeat course of physical therapy. Britney does agree to this. Th ankfully no recent falls or injuries. PT has been helpful for her previously. Energy levels are good. Continues to feel that Ampyra helps her. No recent infectious symptoms. She received a flu shot earlier this year. Tolerating ocrelizumab infusions well without any side effects. She is up-to-date with her lab monitoring and MRI. OTHER RELEVANT HISTORY ROS: System Denies Endorses Constitutional fever, night sweats, weight changes, chills, fatigue Skin rash, itching Eyes vision loss, double vision, blurred vision Heart chest pain, rapid heart beat/palpitations Lungs shortness of breath, wheezing Gastrointestinal abdominal pain Genitourinary, kidney kidney stones, sexual dysfunction, blood in urine Endocrine diabetes, thyroid disease Hematologic/lymph anemia, bleeding Musculoskeletal pain, weakness, loss of muscle Psychiatric depression, anxiety, hallucinations Sleep Dream reenactment, YANETH Snoring, Tired, HTN Bulbar Double vision, droopy eyelids, hearing loss, tinnitus slurred speech, incoordination, nauseavomiting, vertigo, dysphagia Neurological gait unsteadiness Current Medications I personally reviewed and reconciled the medications. Current Outpatient Medications Medication Sig Dispense Refill acetaminophen (TYLENOL) 500 MG tablet Take 500 mg by mouth every 6 (six) hours as needed for pain. AFLURIA QUAD [id number], PF, syringe ADMINISTERED AT DDM 0 atenolol (TENORMIN) 25 MG tablet Take 25 mg by mouth daily. 12 biotin 1 mg cap Take by mouth 3 (three) times a day . cholecalciferol, vitamin D3, 5,000 unit capsule Take 1 (one) capsule (5,000 Units total) by mouth daily . 90 capsule 2 dalfampridine 10 mg Tb12 Take 10 mg by mouth every 12 (twelve) hours . 60 tablet 11 loratadine (CLARITIN) 10 mg tablet Take by mouth. ocrelizumab (OCREVUS IV) Infuse 600 mg into a venous catheter every 6 (six) months. No current facility-administered medications for this visit. ALLERGIES Allergies Allergen Reactions Ibuprofen Swelling Naproxen Sodium Hives, Itching and Swelling Bomadirepyhm-Dvu-Skpvwubw tachycardia tachycardia Penicillins Hives Sulfa (Sulfonamide Antibiotics) Hives Tetracycline Hives Past Medical History: Diagnosis Date Multiple sclerosis (HCC) Seasonal allergies Tachycardia Past Surgical History: Procedure Laterality Date APPENDECTOMY TONSILLECTOMY WISDOM TOOTH EXTRACTION Social History Socioeconomic History Marital status: Single Spouse name: Not on file Number of children: Not on file Years of education: Not on file Highest education level: Not on file Occupational History Not on file Social Needs Financial resource strain: Not on file Food insecurity: Worry: Not on file Inability: Not on file Transportation needs: Medical: Not on file Non-medical: Not on file Tobacco Use Smoking status: Never Smoker Smokeless tobacco: Never Used Substance and Sexual Activity Alcohol use: No Drug use: No Sexual activity: Not on file Lifestyle Physical activity: Days per week: Not on file Minutes per session: Not on file Stress: Not on file Relationships Social connections: Talks on phone: Not on file Gets together: Not on file Attends synagogue service: Not on file Active member of club or organization: Not on file Attends meetings of clubs or organizations: Not on file Relationship status: Not on file Other Topics Concern Not on file Social History Narrative Not on file GENERAL PHYSICAL EXAMINATION Vital Signs: Blood pressure 124/78, pulse (!) 106, height 5' 4 , weight 59 kg (130 lb), not currently . Well developed, well nourished, in no acute distress. I personally reviewed the vital signs. MULTIPLE SCLEROSIS PERFORMANCE TEST Neurological Testing VALUE Visual acuity (2.5% low contrast) OD: OS: 90 second Symbol Digit Modality Test Nine Hole Peg Test Right 1st: 35.58 Right 2nd: Left 1st: Left 2nd: 47.04 Timed 25 [address] Trial 1: 15.71 Trial 2: 13.33 TRADITIONAL NEUROLOGICAL EXAMINATION Mental Status: Atten/concentration: awake and alert. Orientation: oriented x3 Language/Speech: Subtle underlying dysarthria (baseline) Memory: grossly intact Fund of Knowledge: poor (baseline) Cranial Nerves: CN 3,4,6 (EOM): nystagmus on L gaze and up-gaze Cranial Nerve 7 (Facial): normal facial symmetry and strength CN 8 (Auditory): proper hearing to finger rub bilaterally Cranial Nerve 9 (Glossophar): soft palate elevates in the midline spontaneously CN 11 (spinal access): full shoulder shrug equally Cranial Nerve 12 (Hypoglossal): tongue is midline on protrusion Motor: Muscle Strength R/L Deltoids 5/5 Biceps 5/5 Triceps 5/5 Hip flexors 4+/4 Knee flexors 5/5 Knee extensors 5/4+ No pronator drift KOKO's slowed in L hand Coordination/ Station & Gait: Slight ataxia with FNF on left Uses walker Tremor: Resting tremor is absent. Intention tremor is absent. Postural tremor is absent. Action tremor is absent. PARACLINICAL DATA (I have personally reviewed the images below) No new MRI data review at this time. DMT SAFETY LABS DMT safety labs: 10/2016 Hep C antibody negative Hep B core antibody negative Hep B surface antigen negative Hep B surface antibody positive Quantiferon gold negative HIV antibody negative VZV immune PATIENT AND CAREGIVER EDUCATION 1. People with MS who smoke tend to get worse faster compared to those that do not. Also, people with clinically isolated syndrome who smoke convert to MS faster than those who do not. 2. We recommend that all people with MS exercise regularly, to the extent that they are able. Swimming, water aerobics and yoga are excellent considerations. 3. A healthy diet is beneficial in MS. Consider A. Calorie and content (simple carbohydrates, fats) control B. Share portions C. Eat SLOWER D. Salad dressing on the side E. Watch out of alcohol calories F. Drink a glass of water before each meal 4. We recommend caution when reading about MS on the Internet, as information may be inaccurate or outdated, even if it looks real . If you have questions about things you read, we recommend you discuss them with your care provider. Below are list of links to MS educational sources online: [facility] ([email or web address]/MS) Multiple Sclerosis Association of [place] (www.mymsaa.org) Multiple Sclerosis Foundation (www.msfocus.org) Can do Multiple Sclerosis ( www.mscando.org ) National Multiple Sclerosis Society (www.nationalmssociety.org) Twitter: @[facility] Facebook: [facility] Instagram: YAMAP 5. For information on the [facility]'s clinical trial program contact Sari Bolden [facility]. 6. MS Groups take place at [facility] Education [facility] Resource [facility] at [facility]: [address] [place] [address]. Parking vouchers will be provided. Life with MS Gathering: A gathering for anyone living with Multiple Sclerosis. Support team membersare welcome. Will provide education, resources, and support. Guest speakers will be invited. Meets the of the month from 5:30-7pm. Young Adult Group: A gathering for those in their 20's, 30s and early-40s dealing with the challenges of relationships, friendships, and employment while living with MS. This group will be peer led at times. Meets the Monday of the month from 5:30-7pm. Caregiver/Hand I Cutter Support Group: offers opportunities to connect with others, receive education and support, as well as learn about community resources. Meets Monday of each month 1-2pm and6-7pm. Art Therapy: designed to provide a means to help you relax through creative activities, as well as express and explore your emotions and concerns. Led by a Registered Art Therapist. Meets Monday of each month: 11-12:30p. Also meets Monday of each month: 6-7:30p Music Therapy: a fun and useful tool to maximize neurological function and connect mind, body and spirit. Led by a Board Certified Neurologic Music Therapist. Meets and of each month: 1-2pm. Neuro Yoga: learn and enhance your yoga skills. Opportunities include: 6 week intro series, chair yoga, and class for experienced yoga practitioners. Pre- registration is required: [phone] 7. Education regarding disease modifying therapy discussed today: OCRELIZUMAB- (OCREVUS), disease modifying therapy administered as an IV infusion initially given twice in two weeks, then given once every 6 months. Mechanism of Action- Ocrelizumab is a recombinant humanized monoclonal antibody (targeting CD-20 B-cells) that reduces the number and function of certain B- cells. This helps to calm the over active immune system and improve the disease course of MS. Your practitioner may order immunophenotyping to help guide ocrelizumab dosing. Ocrelizumab may be similar to Rituximab (Rituxan), which is an older chimeric monoclonoal antibody also targeting CD-20. Rituximab has been used successfully to treat autoimmune conditions such as rheumatoid arthritis (approved use), SLE (off label), MS (off label) and NMOSD (off label) RELAPSING REMITTING MS DATA: Ocrelizumab efficacy and safety was evaluated in 1600+ patients in 2 identical RRMS clinical trials (Opera 1 and Opera 2) Relapses: Ocre reduced annualized relapse rate vs. Rebif by 47%. Disability: Ocre reduced the risk of confirmed disability progression vs. Rebif by 40% at both 3 month and 6 months. MRI: Ocre reduced the mean number of new T1 Gd+ lesions per scan vs. Rebif by 94% and 95%. Ocre reduced the mean number of new and/or enlarging T2 lesions per scan vs. Rebif by 77% and 83% and reduced T1 black holes by 57% and 64% over the 96 week time frame. MURALI (No evidence of disease activity: no new relapses, no sustained 3 month disability, no new/enlarged T2 MRI lesions or new Gd+ lesions): was seen in 48% of Ocre patients compared with Rebif (25%-29%) in the 96-week trials. CDI (confirmed disability Improvements): Ocre increased likelihood of CDI maintained for 6 months 36% vs rebif. (Ocre 16% vs Rebif 12%). Brain Volume: Ocre reduced rates of brain atrophy (shrinkage) over 96 weeks 24% vs rebif. PRIMARY PROGRESSIVE MS DATA:-Ocrelizumab efficacy and safety was evaluated in 732 patients w Primary progressive MS over 120 week compared to placebo. It is currently the only approved product by theFDA for PPMS. Disability-Ocre reduced the risk of disability progression on EDSS vs. placebo in PPMS by 24% and 25% confirmed at 12 and 24 weeks. Walking Time: Ocre reduced risk of progression in rate of walking time 29% over placebo (Ocre 39% woresned, Placebo 55% worsened). NEP (No Evidence of Progression:Over a period of 12 weeks no progression noted on EDSS exam, No 20%change in 9 hole peg test, no 20% change in timed 25 foot walk test): Ocre increased likelihood of NEP by 47% vs placebo (Ocre 43% vs Placebo 29%) MRI (T2 bright lesions): Over the 96 week trial, Ocre group had a reduction in T2 lesion volume by 3.4% whereas placebo group increased T2 lesion volume by 7.4%. MRI (Brain Volume): Ocre reduced rates of brain atrophy (shrinkage) over 96 weeks 17% vs placebo. I spent 25 minutes face to face with the patient today. Over half the time was spent counseling regarding her symptoms and clinical presentation as well as coordinating care. Thank you very much for allowing me to participate in this patient's care and please do not hesitate to contact me with questions or concerns. Sincerely, Willard Epperson MD Neuroimmunology and Neuroinfectious Disease [facility] at [facility] ([place] [facility]) [place] Address: [address] [place] [address], [address] [place] [address] [place] Address [address] [facility], [address] [place] [address] documented in this encounter* Jeanne Hilario CMA - 04/18/2019 8:25 AM EST Faxed [employer] ([phone]) a physical therapy referral along with face sheet and Insurance card to call patient to schedule. documented in this encounter* Willard Epperson MD - 10/18/2019 10:43 AM EDT Telephone Visit Via Phone Call [facility] [address] [facility] NEUROSCIENCE [address] [facility] [phone] Telephone Visit [facility] 10/18/2019 Willard Epperson MD Provider Location: [facility] Patient Location Lacquer Maker: None Patient Location: Patient's Home Patient: Britney Peraza Date of : 1960 (59 y.o. female) PCP: Joan Welch MD I discussed risks, benefits and alternatives of a telephone visit telemedicine consultation with the patient (and any accompanying persons) including the risks that the patient's personal health details and medical records will be discussed over real-time, synchronous, interactive audio technology,the visit will not be recorded without the express consent of both the provider and the patient, and that there are inherent diagnostic limitations compared to [id number] evaluations. We elected toproceed with the telephone visit telemedicine consultation. HPI Today she is currently at the [facility] receiving her infusion. She has been feeling well.She denies any new complaints. She had MRI of the brain completed earlier today on unofficial view this looks stable in comparison to last year's scan. She has had a several falls at home and would be amenable to for some outpatient home health physical therapy. She does not smoke, she does supplement vitamin D. We have had discussion regarding ocrelizumab in the setting of the coronavirus pandemic and have agreed to continue with therapy as scheduled. The following portions of the patient's history were reviewed and updated as appropriate: allergies, current medications, past family history, past medical history, past social history, past surgicalhistory and problem list. Review of Systems System Denies Endorses Constitutional fever, night sweats, weight changes, chills, fatigue Skin rash, itching Eyes vision loss, double vision, blurred vision Heart chest pain, rapid heart beat/palpitations Lungs shortness of breath, wheezing Gastrointestinal abdominal pain, vomiting, diarrhea, constipation, blood in stool Genitourinary, kidney kidney stones Endocrine diabetes, thyroid disease Hematologic/lymph anemia, bleeding, clotting problems, enlarged nodes Musculoskeletal pain, weakness, loss of muscle Psychiatric depression, anxiety, hallucinations Sleep Dream reenactment YANETH Snoring Bulbar Double vision, droopy eyelids, hearing loss, tinnitus slurred speech, incoordination, nauseavomiting, vertigo, dysphagia Neurological seizure, syncope, memory loss, headache Patient's Medications New Prescriptions No medications on file Previous Medications ACETAMINOPHEN (TYLENOL) 500 MG TABLET Take 500 mg by mouth every 6 (six) hours as needed for pain. AFLURIA QUAD [id number], PF, SYRINGE ADMINISTERED AT [facility] ATENOLOL (TENORMIN) 25 MG TABLET Take 25 mg by mouth daily. BIOTIN 1 MG CAP Take by mouth 3 (three) times a day . CHOLECALCIFEROL, VITAMIN D3, 5,000 UNIT CAPSULE Take 1 (one) capsule (5,000 Units total) by mouth daily . DALFAMPRIDINE 10 MG TB12 Take 10 mg by mouth every 12 (twelve) hours . LORATADINE (CLARITIN) 10 MG TABLET Take by mouth. OCRELIZUMAB (OCREVUS IV) Infuse 600 mg into a venous catheter every 6 (six) months. 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 We have had discussions regarding this infusion in the setting of the coronavirus pandemic and have decided to continue with infusions as scheduled. On preliminary review MRI of the brain looks stable but we will ensure final read is received. She is doing well symptomatically except for several recent falls and would therefore benefit for some in-home physical therapy for gait and balance training. Plan: Continue with ocrelizumab every 6 months, receiving infusion today Order home health PT for gait and balance training MRI brain looks reassuring on preliminary review, but will obtain final read She does not smoke Continue with vitamin D 5000 units daily [id number] Continue Ampyra 10 mg twice daily and will refill Follow-up with me in 6 months-due for CBC with differential, immunoglobulins, vitamin D level at that time I have spent 16 minutes with the patient reviewing the HPI and Plan of Care. documented in this encounter* Denise Carter RN - 10/18/2019 8:27 AM EDT Ocrevus medication guide given to and reviewed with pt. Pt voiced understanding. documented in this encounter* Jeanne Hilario CMA - 10/24/2019 10:05 AM EDT Faxed new Physical Therapy order to [facility] ([phone]) to call and schedule in home visits with patient along with face sheet and Insurance card. documented in this encounter* Libia Steve RN - 04/17/2020 10:33 AM EST Ocrevus medication guide given to and reviewed with pt. Pt voiced understanding. documented in this encounter* Ayanna Combs, PT - 04/17/2020 12:57 PM EST Pt seen today in MS clinic during infusion for therapy screen. Limitations in gross functional mobility: impaired balance, difficulty walking, decline in ADLs/IADLs, impaired endurance. Patient experiencing falls frequently and using first alert button for floorrecovery as she is unable to get up (I). Patient reports her legs feel weaker. P denies specific issues with her hands or fine motor and reiterates that her legs are her biggest problem. Patient lives alone in [place], [place] and sister lives in [place]. Falls in past 6 months: > 6, patient reports falls are not intense falls but she usually just slides to the floor; requires use of her first alert button & EMS to perform floor recovery Fatigue: Significant. Current routine exercise program: No specific exercise regimin Most recent therapy services: outpatient based therapy > 1 year ago per patient report; prefers PT at this time d/t mobility difficulties, fall risk, and COVID. Functional Mobility Assessment: not observed; patient in infusion. Posture in sitting is poor, but in recliner. Patient's sister reports that she bends way forward when standing and walking. Swallowing Questions: 1. Do you cough/choke and/or have persistent throat clearing with liquids/solids?: no 2. Do you ever have the sensation of food sticking in your throat?: no Cognitive Questions: Have you noticed a change in memory, attention (keeping your attention, completing 2 tasks at once,alternating your attention between task)? : yes Therapy needs identified: PT only for now; Sister and patient educated on different therapy disciplines and will continue to make note of deficits. Desired location: External therapy services desired For external services: Orders need faxed to patients desired location Education provided: Quality of movement, Caregiver Education, Diagnosis specific education regarding role of therapy, Home Safety and Role of exercise and exercise guidelines No charge for PT screen this date. Will continue to follow at MS clinic and assess for PT related needs. * Dory Velez LISW-S - 04/17/2020 11:56 AM ANT SW met with pt and her sister Sandi while pt was receiving her Ocrevus infusion. Introduced self and reviewed SW role. Pt presented as pleasant and easily engaged in conversation. Pt shared she doesnot like getting old. Validated her feelings - that with age can come the need for help. Pt has a me dical alert system. She is receiving 2 hours of aide support, 2 times per week. Her bathroom was remodeled with a walk-in shower and a chair lift was installed to get pt safely from her garage into the home. It appears that pt would benefit from meals on wheels, as her aide is only allowed to mixing picker tender groceries, so pt does not have easy access to food/shopping. Sandi lives in [place]. In reviewing past and present in-home supports, it appears that pt is enrolled in the [employer] program. She has contact info for [facility]. Encouraged calling [facility] to discuss an increase in services. Sandi stated she will do so. Asked if Sandi is officially pt's Health Care POA. Pt reported she completed a Health Care POA form and Living Will and Sandi is her POA. Sandi asked for a blankform in case they can not locate pt's copies and need to update the paperwork. SW will provide thistoday. Encouraged pt and/or Sandi to call on if they are not able to connect with [facility] or they have future concerns/questions. There were agreeable. business card was provided. Resource info provided: [facility] ([facility]) at - Re: [employer]SPORT program. Advance Directives Packet * Willard Epperson MD - 04/17/2020 10:30 AM EST Patient Name: Britney Peraza : 1960 MR #: [id number] Other Physicians: Joan Welch MD (Primary Care Physician) [facility] Follow-up Visit 04/17/2020 IMPRESSION: Britney Peraza is a 60 y.o. female with who presents for follow-up. ? PPMS-on ocrelizumab since April 2017. Has been radiographically stable. Some decline recently with gait suspect element of deconditioning and orthostasis. Will have PT evaluate. ? Concern for orthostasis we will see if we can arrange for home health for blood pressure monitoring. Consider reduction in atenolol dose. Discussed conservative measures including hydration. Increase hydration significantly, with the bulk of the fluid before 2 PM. ? Fatigue question contributions of deconditioning, orthostasis, atenolol. Not interested in stimulant at this time. ? Gait impairment-we will arrange for home health for PT and OT. Continue Ampyra. ? Spasticity-minimal, off medications. ? Vitamin D deficiency-on supplementation. PLAN: ? I recommend continuing ocrelizumab. Our treatment goal is No Evidence of Disease Activity (MURALI),meaning no multiple sclerosis attack, no new/enlarged T2 lesions or new alma lesions on MRI, and no change on neurological exam testing. We discussed this medication at this time in the midst of the coronavirus pandemic. She abides by CDC recommendations. ? I recommend checking the following labs/tests for safety monitoring while on MS DMT: She is due for CBC with differential, immunoglobulin levels, vitamin D level. These labs are being checked todaywith her infusion. Due to fatigue, we will also include B12 and TSH. ? Regarding MRI surveillance, I recommend annual MRI of the brain, next due in October 2020. ? For MS Symptom Management, I recommend the following plan: ? Continue Ampyra 10 mg twice daily. No refill needed. ? We recommend a regular exercise program. We will order home health for PT, nursing (BP monitoring). ? PT assessment today in clinic. ? Social work consult today in clinic for increased home needs. ? Serum vitamin D goal is 50-100. I recommend continuing vitamin D 5000 units daily. ? She does not smoke. ? Annual inactivated influenza vaccine is recommended yearly. ? Follow-up with me in 3 months. Willard Epperson MD [facility] NeuroImmunology/ Neuroinfectious Disease ([place], and [place] [facility] outpatient [facility]) General Neurology ([place]) (all locations) ([place]) [facility] Address: [address] [place] [address], [address] Address [facility] named [facility], [address] [facility] [address] [place] [address] DISEASE SUMMARY Primary Neurological Diagnosis and Date Given PPMS- 2017 Age of Symptom Onset Approximately 2009 Treatment History DMT Start Date End Date Reason for DC Ocrelizumab 04/13/2017 Other physicians: Dr. 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 Chief Complaint: MS Follow Up Visit INTERIM HISTORY Last had telephone visit October 18, 2019. Her sister called in to report that the patient has been having numerous falls at home. Confirms about 12 calls with [employer] over the last year. Would benefit significantly from therapy. We discussed home health. Currently receives what sounds like [facility] with some home health aide help about 2 days/week. She frequently has orthostatic sounding symptoms with lightheadednessdizziness with standing. Her sister is encouraged her to increase fluid intake and with Powerade. Spent time discussing home needs, strategies to mitigate orthostasis. It is unclear also whether or not the patient still requires atenolol 25 mg daily. Has tolerated ocrelizumab infusions well. No recent infections. [place] No longer is driving. Mood seems okay. Nancy tends to minimize the majority of her symptoms. Her sister thinks the biggest focus is on orthostasis, gait, and home needs. She does not smoke. She does supplement vitamin D. ROS: System Denies Endorses Constitutional fatigue, orthostasis Skin rash, itching Eyes vision loss, double vision, blurred vision Heart chest pain, rapid heart beat/palpitations Lungs shortness of breath, wheezing Gastrointestinal abdominal pain, vomiting, diarrhea, constipation, blood in stool Genitourinary, kidney kidney stones, sexual dysfunction, blood in urine Endocrine diabetes, thyroid disease Hematologic/lymph anemia, bleeding, clotting problems, enlarged nodes Musculoskeletal pain, weakness, loss of muscle Psychiatric depression, anxiety, hallucinations Sleep Dream reenactment, snoring, apnea, fall asleep easily, RLS YANETH Snoring Bulbar Double vision, droopy eyelids, hearing loss, tinnitus slurred speech, incoordination, nauseavomiting, vertigo, dysphagia Neurological worsening gait stability, frequent falls Past Medical History: Diagnosis Date Multiple sclerosis (HCC) Seasonal allergies Tachycardia Past Surgical History: Procedure Laterality Date APPENDECTOMY TONSILLECTOMY WISDOM TOOTH EXTRACTION Social History Tobacco Use Smoking status: Never Smoker Smokeless tobacco: Never Used Substance Use Topics Alcohol use: No Drug use: No No family history on file. Allergies Allergen Reactions Ibuprofen Swelling Naproxen Sodium Hives, Itching and Swelling Kmrzaevvangu-Oyw-Bulnwtmw tachycardia tachycardia Penicillins Hives Sulfa (Sulfonamide Antibiotics) Hives Tetracycline Hives Current Outpatient Medications Medication Sig Dispense Refill acetaminophen (TYLENOL) 500 MG tablet Take 500 mg by mouth every 6 (six) hours as needed for pain. AFLURIA QUAD [id number], PF, syringe ADMINISTERED AT [facility] 0 atenolol (TENORMIN) 25 MG tablet Take 25 mg by mouth daily. 12 dalfampridine 10 mg Tb12 Take 10 mg by mouth every 12 (twelve) hours . 60 tablet 11 loratadine (CLARITIN) 10 mg tablet Take by mouth. ocrelizumab (OCREVUS IV) Infuse 600 mg into a venous catheter every 6 (six) months. cholecalciferol, vitamin D3, 5,000 unit capsule Take 1 (one) capsule (5,000 Units total) by mouth daily . 90 capsule 2 No current facility-administered medications for this visit. GENERAL PHYSICAL EXAMINATION Vital Signs: Blood pressure 131/80, pulse 86, height 5' 4 , weight 59 kg (130 lb), not currently . General Appearance: in no apparent distress, well nourished, conversant, cooperative NEUROLOGIC EXAMINATION Mental Status: Atten/concentration: awake and alert. Orientation: oriented x3 Language/Speech: Subtle underlying dysarthria (baseline) Memory: grossly intact Fund of Knowledge: poor (baseline) Cranial Nerves: CN 3,4,6 (EOM): nystagmus on L gaze and up-gaze Cranial Nerve 7 (Facial): normal facial symmetry and strength CN 8 (Auditory): proper hearing to finger rub bilaterally Cranial Nerve 9 (Glossophar): soft palate elevates in the midline spontaneously CN 11 (spinal access): full shoulder shrug equally Cranial Nerve 12 (Hypoglossal): tongue is midline on protrusion Motor: Muscle Strength R/L Deltoids 5/5 Biceps 5/5 Triceps 5/5 Hip flexors 4+/4 Knee flexors 5/5 Knee extensors 5/4+ No pronator drift KOKO's slowed in L hand Coordination/ Station & Gait: Deferred gait today as patient was receiving infusion. Tremor: Resting tremor is absent. Intention tremor is absent. Postural tremor is absent. Action tremor is absent. DIAGNOSTIC TESTING No new MRI data to review at this time. Total time spent, including over 50% or more spent face to face with the patient discussing the risk and benefits of any medications, reviewing available data and counseling patient on treatment planwas 25 minutes. The aforementioned impression & plan were discussed at length with the patient,who voiced understanding. documented in this encounter* Jeanne Hilario CMA - 04/21/2020 8:42 AM EST Faxed a physical therapy order to [facility] ([phone]) along with face sheet and Insurance card to call and schedule with patient. documented in this encounter* Willard Epperson MD - 09/28/2018 3:49 PM EDT [facility] at [facility] Follow Up Note 09/28/2018 IMPRESSIONS Britney Peraza is a pleasant 58 y.o. handed female with multiple sclerosis on disease modifying therapy with Ocrelizumab (Ocrevus). Current active / ongoing chronic problems include monitoring of MS over time, issues related to safety and ongoing monitoring of ocrelizumab. Generally doing well from a symptomatic standpoint. She has had benefit from ampyra. She had some lightheadedness/orthostasis with tizanidine which we have since stopped. Based on today's clinical history and neurological testing, her disease phenotype is progressive MSwith stability and no recent signs of activity. She has been treated with Ocrelizumab infusions since 04/2017. We reviewed the ongoing risk / benefit of Ocrevus treatments we agreed to continue Ocrelizumab (Ocrevus) therapy. PLAN RELATED TO DISEASE MODIFYING THERAPY 1. We will administer Ocrevus IV maintenance infusions once every 6 months.Britney Peraza agreesto be evaluated in MS clinic every 3-6 months while on this therapy. 2. While on Ocrevus, She agrees to use appropriate forms of contraception, report any symptoms of infections, and to discuss any anticipated vaccinations/immunizations with her MS providers. 3. Given that Britney Peraza is on the Ocrevus, we will order the following safety laboratories/tests: new CBC/diff, CMP and vit D (can be drawn with her upcoming infusion). 4. Infusion Reactions can occur during Ocrevus infusions- In the clinical trials and in our experience here at [facility], most infusion related reactions are mild to moderate, occur at the first infusion, and are managed with infusion adjustments and treatment of symptoms. 5. Infection Risk: Ocrelizumab may increase the risk of infections such as sinusitis, upper respiratory tract infections,urinary tract infections and pneumonia. Reactivation of hepatitis B has been seen with another similar type of medication. 6. Vaccinations/Immunizations-Ocre has not been studied in conjunction with live or live attenuatedvaccinations. It may decrease the effectiveness of immunizations. We recommend against live attenuated vaccines. We also recommend vaccinations be administered 6 weeks prior to anupcoming Ocre infusion. We strongly recommend talking to your MS practitioner before having any vaccination / immunizations 7. Cancer Screening: There was no statistically significant treatment-related increase in cancer risk in the Ocrelizumab clinical trials. We recommend standard of care cancer screening (inclucding breast cancer) for all of our MS patients. 8. - Ocrelizumabs effects on are unknown. Women of childbearing potential must agree to use contraception and avoid for at least 6 months after their last infusion and only after clearance from their MS practitioner 9. Further Information about Ocrevus is noted below. PLAN RELATED TO SYMPTOMATIC THERAPIES 1. We recommend continuing current symptomatic medications without change: Ampyra 10 mg BID (refilled). DIET AND HEALTHY LIFESTYLE WITH MS 1. Check vit D level on 10/12 with infusion and continue vit D 5000 units QOD for now 2. She declines need for new PT. 3. She does not smoke. 4. Yearly influenza vaccine is recommended. 5. She is currently continuing to supplement biotin 100 mg 3 times daily. We have discussed the possible role of this compound in progressive disease. PLAN RELATED TO CLINIC FOLLOW UP 1. I will schedule a follow-up visit in March 2019. 2. Please arrive 30 minutes before your appointment to allow time to complete paperwork and MS specific testing prior to seeing your MS specialist. If you arrive late you will be asked to reschedule your visit. 3. Please sign up for the [employer] patient portal. [employer] provides assess to your medical record and test results, allows you to communicate with your care providers, and allows you to complete patient questionnaires prior to each clinic visit. 4. When your testing is completed, your MS care team will review all results and contact you if a finding requires follow up before your next visit. Otherwisee, we will discuss your test results [id number] at your next clinic visit. Many of your testing results, however, can be reviewed online through [employer]. DISEASE SUMMARY Primary Neurological Diagnosis and Date Given PPMS- 2017 Age of Symptom Onset Approximately [age] Treatment History DMT Start Date End Date Reason for DC Ocrelizumab 04/13/2017 Other physicians: Dr. Welch (PCP) CHIEF COMPLAINT MS follow-up CONTEMPORARY HISTORY Since last seen, she was having some dizziness and lightheadedness with Tizanidine. She has since stopped and she feels better. Spasticity is really a minor complaint for her at this point. She is noticing benefit from Ampyra. This is also noticeable by her sister and kwyxpha-zu-vno with regards toambulation. There have been no trips or falls. She declines new PT course at this time. A new MRI of the brain was undertaken prior to the clinic visit today and was stable with no signs of disease progression. She continues to tolerate ocrelizumab infusions well without any significant side effects. Mood is good. Sleep is good. No recent infections or illnesses. No new symptoms to report. Has had a few recent home modifications including walk in shower. OTHER RELEVANT HISTORY ROS: System Denies Endorses Constitutional fever, night sweats, weight changes, chills, fatigue Skin rash, itching Eyes vision loss, double vision, blurred vision Heart chest pain, rapid heart beat/palpitations Lungs shortness of breath, wheezing Gastrointestinal abdominal pain, vomiting, diarrhea, constipation, blood in stool Genitourinary, kidney kidney stones, sexual dysfunction, blood in urine Current Medications I personally reviewed and reconciled the medications. Current Outpatient Medications Medication Sig Dispense Refill acetaminophen (TYLENOL) 500 MG tablet Take 500 mg by mouth every 6 (six) hours as needed for pain. AFLURIA QUAD [id number], PF, syringe ADMINISTERED AT [facility] 0 atenolol (TENORMIN) 25 MG tablet Take 25 mg by mouth daily. 12 cholecalciferol, vitamin D3, 5,000 unit capsule Take 1 (one) capsule (5,000 Units total) by mouth daily . 90 capsule 2 dalfampridine 10 mg Tb12 Take 10 mg by mouth every 12 (twelve) hours . 60 tablet 11 loratadine (CLARITIN) 10 mg tablet Take by mouth. ocrelizumab (OCREVUS IV) Infuse 600 mg into a venous catheter every 6 (six) months. No current facility-administered medications for this visit. ALLERGIES Allergies Allergen Reactions Ibuprofen Swelling Naproxen Sodium Hives, Itching and Swelling Ztrhwrljfyuj-Qxe-Zezcoaou tachycardia tachycardia Penicillins Hives Sulfa (Sulfonamide Antibiotics) Hives Tetracycline Hives Past Medical History: Diagnosis Date Multiple sclerosis (HCC) Seasonal allergies Tachycardia Past Surgical History: Procedure Laterality Date APPENDECTOMY TONSILLECTOMY WISDOM TOOTH EXTRACTION Social History Socioeconomic History Marital status: Single Spouse name: Not on file Number of children: Not on file Years of education: Not on file Highest education level: Not on file Social Needs Financial resource strain: Not on file Food insecurity - worry: Not on file Food insecurity - inability: Not on file Transportation needs - medical: Not on file Transportation needs - non-medical: Not on file Occupational History Not on file Tobacco Use Smoking status: Never Smoker Smokeless tobacco: Never Used Substance and Sexual Activity Alcohol use: No Drug use: No Sexual activity: Not on file Other Topics Concern Not on file Social History Narrative Not on file GENERAL PHYSICAL EXAMINATION Vital Signs: Blood pressure 145/80, pulse 89, height 5' 4 , weight 59 kg (130 lb), not currently . Well developed, well nourished, in no acute distress.. I personally reviewed the vital signs. MULTIPLE SCLEROSIS PERFORMANCE TEST CLINICAL TESTING VALUE Binocular Visual acuity (Hi: range 13-60, median 59) (Lo: range 0-55, median 32) Low Contrast: 20 High Contrast: 59 Symbol Digit Modality Test (range 4-86, Median 46) Total Number Correct: 15 Nine Hole Peg Test (range 13.4-8.3; median 26.5) Left Hand Avg (seconds): Right Hand Avg (seconds): Dominant Hand: right Timed 25 Foot Walk (range 0.1-52.47; Median without aid 7.1) Average Trial Time (seconds): AFO Choice: Walking Aid Choice: TRADITIONAL NEUROLOGICAL EXAMINATION Mental Status: Atten/concentration: awake and alert. Orientation: oriented x3 Language/Speech: Subtle underlying dysarthria (baseline) Memory: grossly intact Fund of Knowledge: poor (baseline) Cranial Nerves: CN 3,4,6 (EOM): nystagmus on L gaze and up-gaze Cranial Nerve 7 (Facial): normal facial symmetry and strength CN 8 (Auditory): proper hearing to finger rub bilaterally Cranial Nerve 9 (Glossophar): soft palate elevates in the midline spontaneously CN 11 (spinal access): full shoulder shrug equally Cranial Nerve 12 (Hypoglossal): tongue is midline on protrusion Motor: Muscle Strength R/L Deltoids 5/5 Biceps 5/5 Triceps 5/5 Hip flexors 4+/4 Knee flexors 5/5 Knee extensors 5/4+ No pronator drift KOKO's slowed in L hand Coordination/ Station & Gait: Slight ataxia with FNF on left Able to rise from chair Walks with walker-L leg weakness Tremor: Resting tremor is absent. Intention tremor is absent. Postural tremor is absent. Action tremor is absent. PARACLINICAL DATA (I have personally reviewed the images below) MRI of brain 09/29/18 1. Stable MRI of the brain. 2. Numerous supratentorial and infratentorial white matter hyperintensities consistent with the patient's history of multiple sclerosis are stable. No new lesions or enhancing lesions. 3. Stable brain atrophy. DMT safety labs: 10/2016 Hep C antibody negative Hep B core antibody negative Hep B surface antigen negative Hep B surface antibody positive Quantiferon gold negative HIV antibody negative VZV immune Education regarding disease modifying therapy discussed today: OCRELIZUMAB- (OCREVUS), disease modifying therapy administered as an IV infusion initially given twice in two weeks, then given once every 6 months. Mechanism of Action- Ocrelizumab is a recombinant humanized monoclonal antibody (targeting CD-20 B-cells) that reduces the number and function of certain B- cells. This helps to calm the over active immune system and improve the disease course of MS. Your practitioner may order immunophenotyping to help guide ocrelizumab dosing. Ocrelizumab may be similar to Rituximab (Rituxan), which is an older chimeric monoclonoal antibody also targeting CD-20. Rituximab has been used successfully to treat autoimmune conditions such as rheumatoid arthritis (approved use), SLE (off label), MS (off label) and NMOSD (off label) RELAPSING REMITTING MS DATA: Ocrelizumab efficacy and safety was evaluated in 1600+ patients in 2 identical RRMS clinical trials (Opera 1 and Opera 2) Relapses: Ocre reduced annualized relapse rate vs. Rebif by 47%. Disability: Ocre reduced the risk of confirmed disability progression vs. Rebif by 40% at both 3 month and 6 months. MRI: Ocre reduced the mean number of new T1 Gd+ lesions per scan vs. Rebif by 94% and 95%. Ocre reduced the mean number of new and/or enlarging T2 lesions per scan vs. Rebif by 77% and 83% and reduced T1 black holes by 57% and 64% over the 96 week time frame. MURALI (No evidence of disease activity: no new relapses, no sustained 3 month disability, no new/enlarged T2 MRI lesions or new Gd+ lesions): was seen in 48% of Ocre patients compared with Rebif (25%-29%) in the 96-week trials. CDI (confirmed disability Improvements): Ocre increased likelihood of CDI maintained for 6 months 36% vs rebif. (Ocre 16% vs Rebif 12%). Brain Volume: Ocre reduced rates of brain atrophy (shrinkage) over 96 weeks 24% vs rebif. PRIMARY PROGRESSIVE MS DATA:-Ocrelizumab efficacy and safety was evaluated in 732 patients w Primary progressive MS over 120 week compared to placebo. It is currently the only approved product by theFDA for PPMS. Disability-Ocre reduced the risk of disability progression on EDSS vs. placebo in PPMS by 24% and 25% confirmed at 12 and 24 weeks. Walking Time: Ocre reduced risk of progression in rate of walking time 29% over placebo (Ocre 39% woresned, Placebo 55% worsened). NEP (No Evidence of Progression:Over a period of 12 weeks no progression noted on EDSS exam, No 20%change in 9 hole peg test, no 20% change in timed 25 foot walk test): Ocre increased likelihood of NEP by 47% vs placebo (Ocre 43% vs Placebo 29%) MRI (T2 bright lesions): Over the 96 week trial, Ocre group had a reduction in T2 lesion volume by 3.4% whereas placebo group increased T2 lesion volume by 7.4%. MRI (Brain Volume): Ocre reduced rates of brain atrophy (shrinkage) over 96 weeks 17% vs placebo. I spent 25 minutes face to face with the patient today. Over half the time was spent counseling regarding her symptoms and clinical presentation as well as coordinating care. Thank you very much for allowing me to participate in this patient's care and please do not hesitate to contact me with questions or concerns. Sincerely, Willard Epperson MD Neuroimmunology and Neuroinfectious Disease [facility] at [facility] and [place] [facility] ([place] [facility]) [place] Address: [address] [place] [address], [address] Address [address] [place] [address], [address] [place] [address] documented in this encounter Summary Purpose Family History No Family History Records FoundNo Family History Records FoundNo Family History Records Found Additional Source Comments Addendum Note - Willard Epperson MD - 01/23/2018 11:17 AM EDTQuick Note - Elif Augustin, TECHNOLOGIST - 10/18/2019 7:15 AM EDT Miscellaneous Notes (unrecog nized section and content) Addended by: WILLARD EPPERSON on: 01/23/2018 11:17 AM Modules accepted: Orders in this encounter This technologist ([id number]) and ([id number]) wore surgical masks/gloves during MRI exam. Patient wore surgical mask. documented in this encounter Reason for Visit (unrecogniz ed section and content) Specialty Diagnoses / Procedures Referred By Gaston espana Referred To Contact Infusion Therapy Diagnoses Multiple sclerosis, primary progressive (HCC) Procedures AK INJECTION, OCRELIZUMAB, 1 MG Willard Epperson MD [address] [facility] [address] [place] [address] [facility] [address] [place] [address] Referral ID Status Reason Start Date Expiration Date V isits Requested Visits Authorized [id number] Pending Review 03/31/2021 05/30/2021 1 1 Status Reason Specialty Diagnoses / Procedures Referre d By Contact Referred To Contact Closed Radiology Diagnoses Multiple sclerosis (HCC) Procedures MR Brain With And Without Contrast Willard Epperson MD [address] [facility] [address] [place] [address] Reason Comments Multiple Sclerosis 6 month Ocrevus Status Reason Specialty Diagnoses / Procedures Referred By Contact Referred To Contact Closed Infusion Therapy Diagnoses Multiple sclerosis Procedures AK INJECTION, OCRELIZUMAB, 1 MG Willard Epperson MD [address] [facility] [address] [place] [address] [facility] [address] [place] [address] Reason Comments Multiple Sclerosis Status Reason Specialty Diagnoses / Procedures Referred By Contact Referred To Contact Closed Infusion Therapy Diagnoses Multiple sclerosis, primary progressive (HCC) Procedures AK INJECTION, OCRELIZUMAB, 1 MG Willard Epperson MD [address] [place] [address] [facility] [address] [place] [address] Status Reason Specialty Diagnoses / Procedures Referre d By Contact Referred To Contact Closed Radiology Diagnoses Multiple sclerosis (HCC) Procedures MR Brain Without Contrast Willard Epperson MD [address] [facility] [address] [place] [address] Status Reason Specialty Diagnoses / Procedures Referred By Contact Referred To Contact Authorized Infusion Therapy Diagnoses Multiple sclerosis Ocrevus 6 months Procedures AK INJECTION, OCRELIZUMAB, 1 MG CHEMO Willard Epperson MD [address] [facility] [address] [place] [address] [facility] [address] [place] [address] Status Reason Specialty Diagnoses / Procedures Referred By Contact Referred To Contact Canceled Specialty Services Required/[facility] / Home Health Services Diagnoses Multiple sclerosis, primary progressive (HCC) Willard Epperson MD [address] [facility] [address] [place] [address] [address] Status Reason Specialty Diagnoses / Procedures Referred By Contact Referred To Contact Authorized Infusion Therapy Diagnoses Multiple sclerosis, primary progressive (HCC) Procedures AK INJECTION, OCRELIZUMAB, 1 MG Willard Epperson MD [address] [facility] [address] [place] [address] [facility] [address] [place] [address] Reason Comments Multiple Sclerosis Ocrevus 6mo, 2hr Status Reason Specialty Diagnoses / Procedures Referred By Contact Referred To Contact Closed Infusion Therapy Diagnoses Multiple sclerosis Ocrevus 6 months Procedures AK INJECTION, OCRELIZUMAB, 1 MG CHEMO Willard Epperson MD [address] [facility] [address] [place] [address] [facility] [address] [facility] [place] [address] Reason Onset Date Comments Medication Refill 01/08/2021 Reason Comments Multiple Sclerosis Care Teams (unrecognized sec tion and content) Photovoltaic Technician Relationship Specialty Start Date End Date Joan Welch MD [address] [facility] [address] [place] [id number] PCP - General Family Medicine 09/28/18 Photovoltaic Technician Relationship Specialty Start Date End Date Joan Welch MD [address] [id number] PCP - General Family Medicine 09/28/18 Photovoltaic Technician Relationship Specialty Start Date End Date Joan Welch MD [address] [phone] PCP - General Family Medicine 09/28/18 Photovoltaic Technician Relationship Specialty Start Date End Date Joan Welch MD [address] [place] [address] [phone] PCP - General Family Practice 05/11/16 Photovoltaic Technician Relationship Specialty Start Date End Date Joan Welch MD [address] [place] [address] [phone] PCP - General Family Medicine 09/28/18 INFORMATION SOURCE (unrecogn ized section and content) DATE CREATED AUTHOR AUTHOR'S ORGANIZ ATION 01/15/2022 [facility] DATE CREATED AUTHOR AUTHOR'S ORGANIZ ATION 11/16/2022 [facility] Source Comments (unrecognize d section and content) In the event this informatio n is protected by the Federal Confidentiality of Alcohol and Drug Abuse Patient Records regulations: The Federal rules restrict any use of the information to criminally investigate or prosecute any alcohol or drug abuse patient.[facility] FOR RECORDS PERTAINING TO PATIENTS WHO ARE OR HAVE BEEN ENROLLED IN A CHEMICAL DEPENDENCY/SUBSTANCEABUSE PROGRAM, SOME INFORMATION MAY BE OMITTED. This clinical summary was aggregated from multiple sources. Caution should be exercised in using it in the provision of clinical care. This summary normalizes information from multiple sources, and as a consequence, information in this document may materially change the coding, format and clinical context of patient data. In addition, data may be omitted in some cases. CLINICAL DECISIONS SHOULD BE BASED ON THE PRIMARY CLINICAL RECORDS. [employer] [facility]. provides no warranty or guarantee of the accuracy or completeness of information in this document.
[2023-06-06 07:49] LABS: Hemoglobin A1c 7.5 % (3.8-5.6)
== END ==
LOC: OLS.WHLEAS 04:00
PROVIDERS: PCP Family Medicine; Referring Provider Internal Medicine; Visit Provider Internal Medicine
DX: J96.21 Acute and chronic respiratory failure with hypoxia (principal); G35 Multiple sclerosis; Z79.899 Other long term (current) drug therapy
CPT/HCPCS: 36415; 83036

== ENCOUNTER → 2023-07-03 | Outpatient (REF) | payer MEDICARE, MEDICAID, SELFPAY ==
--- OUTSIDE RECORDS SUMMARY | 2023-07-03 04:50 | XMS RPT_ITS | CCD ---
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 Name Role Phone No, Physician Unavailable Unavailable Unavailable Unavailable Unavailable Joan Welch Primary Care Provider Mercedes, Physician Primary Care Provider Joan Antunez Primary Care Provider [phone] Joan Welch MD Primary Care Provider Joan Welch MD Primary Care Provider JOAN WELCH Primary Care Unavailable WILLARD EPPERSON Attending Unavailabl WILLARD Gonzalez Attending Unavailabl JOAN Salmeron Primary Care Unavailable JOAN WELCH Primary Care Unavailable WILLARD EPPERSON Attending Unavailabl e WILLARD EPPERSON Admitting Unavailabl WILLARD Gonzalez Attending Unavailabl JOAN Salmeron Primary Care Unavailable WILLARD EPPERSON Referring UnavailJOAN Gan Primary Care Unavailable WILLARD EPPERSON Admitting Unavailabl JOAN Salmeron Primary [...] Unavailable Joan Welch MD Primary Care Provider [phone] JOAN WELCH Primary Care Unavailable WILLARD EPPERSON Attending JOAN Antunez Primary Care Unavailable WILLARD EPPERSON Attending Joan Antunez MD Primary Care Provider Allergies Allergy Classification Reported Allergen(s) Allergy Type Date of Onset Reaction(s) Facility Aspirin / Caffeine / Orphenadrine (11 sources) Aspirin / Caffeine / Orphenadrine Drug Allergy 5 [facility] NSAIDs (20 sources) Ibuprofen Drug Allergy 5 Swelling, Hives, Itching [facility] Penicillins (antibiotic) (11 sources) Penicillins Drug Allergy [address] [facility] Sulfonamides (antibiotic) (11 sources) Sulfonamides (Antibiotic) Drug Allergy [address] [facility] Tetracyclines (antibiotic) (11 sources) Tetracycline Drug Allergy [address] [facility] (20 sources) aspirin / caffeine / orphenadrine; Translations: [ORPHENADRINE- A-CAFFEINE] Propensity to adverse reactions to drug 5 [facility] Work Phone: (20 sources) ibuprofen; Translations: [IBUPROFEN] Propensity to adverse reactions to drug 8 Swelling [facility] Work Phone: (20 sources) naproxen; Translations: [NAPROXEN SODIUM] Propensity to adverse reactions to drug 5 Hives, Itching, Swelling [facility] Work Phone: (20 sources) Penicillins; Translations: [PENICILLINS] Propensity to adverse reactions to drug [address] [facility] Work Phone: (20 sources) Sulfonamides (Antibiotic); Translations: [SULFA (SULFONAMIDE ANTIBIOTICS)] Propensity to adverse reactions to drug [address] [facility] Work Phone: (20 sources) tetracycline; Translations: [TETRACYCLINE] Propensity to adverse reactions to drug [address] [facility] Work Phone: (6 sources) Penicillins Propensity to adverse reactions to drug [address] [facility] (8 sources) Sulfonamides (Antibiotic) Propensity to adverse reactions to drug [address] [facility] (2 sources) Penicillins Propensity to adverse reactions [facility] (1 source) tiZANidine Drug Allergy 9 Other: See Comments [facility] Medications Current Medications Medication Drug Class(es) Dates [...] 13:25-0400 Body temperature 97.9 [degF] Chair 7 [facility] 04-09-2021 13:25-0400 Diastolic blood pressure 80 mm[Hg] Chair 7 [facility] 04-09-2021 13:25-0400 Heart rate 123 /min Chair 7 [facility] 04-09-2021 13:25-0400 SaO2% (BldA) [Mass fraction] 97 % Chair 7 [facility] 04-09-2021 13:25-0400 Systolic blood pressure 133 mm[Hg] Chair 7 [facility] 04-09-2021 11:06-0400 Respiratory rate 16 /min Chair 7 [facility] 04-09-2021 07:57-0400 Body height 162.6 cm Willard pEperson MD Work Phone: [facility] 04-09-2021 07:57-0400 Body mass index (BMI) [Ratio] 25.06 kg/m2 Willard Epperson MD Work Phone: [facility] 04-09-2021 07:57-0400 Body weight 66.22 kg Willard Epperson MD Work Phone: [facility] 04-09-2021 07:57-0400 Diastolic blood pressure 65 mm[Hg] Willard Epperson MD Work Phone: [facility] 04-09-2021 07:57-0400 Heart rate 111 /min Willard Epperson MD Work Phone: [facility] 04-09-2021 07:57-0400 Systolic blood pressure 123 mm[Hg] Willard Epperson MD Work Phone: [facility] 10-16-2020 12:50-0400 Body temperature 98.29 [degF] Chair 2 [facility] 10-16-2020 12:50-0400 Diastolic blood pressure 63 mm[Hg] Chair 2 [facility] 10-16-2020 12:50-0400 Heart rate 130 /min Chair 2 [facility] 10-16-2020 12:50-0400 SaO2% (BldA) [Mass fraction] 96 % Chair 2 [facility] 10-16-2020 12:50-0400 Systolic blood pressure 128 mm[Hg] Chair 2 [facility] 10-16-2020 11:34-0400 Respiratory rate 16 /min Chair 2 [facility] 04-17-2020 14:51-0500 BP Diastolic 70 mm[Hg] Chair 2 [facility] 04-17-2020 14:51-0500 BP Systolic 136 mm[Hg] Chair 2 [facility] 04-17-2020 14:51-0500 Pulse (Heart Rate) 126 /min Chair 2 [facility] 04-17-2020 14:51-0500 Pulse Oximetry 97 % Chair 2 [facility] 04-17-2020 14:51-0500 Respiratory Rate 16 /min Chair 2 [facility] 04-17-2020 14:48-0500 Body Temperature 98.4 [degF] Chair 2 [facility] 04-17-2020 10:41-0500 BMI (Body Mass Index) 22.31 kg/m2 Willard Epperson [facility] 04-17-2020 10:41-0500 Body weight 58.97 kg Willard Epperson [facility] 04-17-2020 10:41-0500 BP Diastolic 80 mm[Hg] Willard Epperson [facility] 04-17-2020 10:41-0500 BP Systolic 131 mm[Hg] Willard Epperson [facility] 04-17-2020 10:41-0500 Height 162.6 cm Willard Epperson [facility] 04-17-2020 10:41-0500 Pulse (Heart Rate) 86 /min Willard Epperson [facility] 10-18-2019 13:54-0400 Body Temperature 97.5 [degF] Chair 1 [facility] 10-18-2019 13:54-0400 BP Diastolic 79 mm[Hg] Chair 1 [facility] 10-18-2019 13:54-0400 BP Systolic 137 mm[Hg] Chair 1 [facility] 10-18-2019 13:54-0400 Pulse (Heart Rate) 112 /min Chair 1 [facility] 10-18-2019 13:54-0400 Pulse Oximetry 95 % Chair 1 [facility] 10-18-2019 13:54-0400 Respiratory Rate 20 /min Chair 1 [facility] 10-18-2019 07:03-0400 BMI (Body Mass Index) 22.31 kg/m2 Willard Epperson [facility] 10-18-2019 07:03-0400 Body weight 58.97 kg Willard Epperson [facility] 10-18-2019 07:03-0400 Height 162.6 cm Willard Epperson [facility] 04-12-2019 12:17-0500 BMI (Body Mass Index) 22.31 kg/m2 Willard Epperson [facility] 04-12-2019 12:17-0500 Body weight 58.97 kg Willard Epperson [facility] 04-12-2019 12:17-0500 BP Diastolic 78 mm[Hg] Willard Epperson [facility] 04-12-2019 12:17-0500 BP Systolic 124 mm[Hg] Willard Epperson [facility] 04-12-2019 12:17-0500 Height 162.6 cm Willard Epperson [facility] 04-12-2019 12:17-0500 Pulse (Heart Rate) 106 /min Willard Epperson [facility] 04-12-2019 12:12-0500 Body Temperature 97.9 [degF] Chair 5 [facility] 04-12-2019 12:12-0500 BP Diastolic 81 mm[Hg] Chair 5 [facility] 04-12-2019 12:12-0500 BP Systolic 134 mm[Hg] Chair 5 [facility] 04-12-2019 12:12-0500 Pulse (Heart Rate) 104 /min Chair 5 [facility] 04-12-2019 12:12-0500 Pulse Oximetry 97 % Chair 5 [facility] 04-12-2019 12:12-0500 Respiratory Rate 16 /min Chair 5 [facility] 10-12-2018 13:25-0400 Body Temperature 98.1 [degF] Chair 1 [facility] 10-12-2018 13:25-0400 BP Diastolic 74 mm[Hg] Chair 1 [facility] 10-12-2018 13:25-0400 BP Systolic 137 mm[Hg] Chair 1 [facility] 10-12-2018 13:25-0400 Pulse (Heart Rate) 130 /min Chair 1 [facility] 10-12-2018 13:25-0400 Pulse Oximetry 95 % Chair 1 [facility] 10-12-2018 10:14-0400 Respiratory Rate 14 /min Chair 1 [facility] 09-28-2018 15:44-0400 BMI (Body Mass Index) 22.31 kg/m2 Willard Epperson [facility] 09-28-2018 15:44-0400 Body weight 58.97 kg Willard Epperson [facility] 09-28-2018 15:44-0400 BP Diastolic 80 mm[Hg] Willard Epperson [facility] 09-28-2018 15:44-0400 BP Systolic 145 mm[Hg] Willard Epperson [facility] 09-28-2018 15:44-0400 Height 162.6 cm Willard Epperson [facility] 09-28-2018 15:44-0400 Pulse (Heart Rate) 89 /min Willard Epperson [facility] 09-28-2018 11:38-0400 BMI (Body Mass Index) 22.31 kg/m2 Willard Epperson [facility] 09-28-2018 11:38-0400 Height 162.6 cm Willard Epperson [facility] 09-28-2018 11:38-0400 Weight 58.97 kg Willard Epperson [facility] 01-19-2018 11:34-0400 BMI (Body Mass Index) 20.77 kg/m2 Willard Epperson [facility] 01-19-2018 11:34-0400 BP Diastolic 70 mm[Hg] Willard Epperson [facility] 01-19-2018 11:34-0400 BP Systolic 118 mm[Hg] Willard Epperson [facility] 01-19-2018 11:34-0400 Height 162.6 cm Willard Epperson [facility] 01-19-2018 11:34-0400 Pulse (Heart Rate) 76 /min Willard Epperson [facility] 01-19-2018 11:34-0400 Weight 54.88 kg Willard Epperson [facility] 10-11-2017 14:08-0400 Body Temperature 98.1 [degF] Chair 1 [facility] 10-11-2017 14:08-0400 BP Diastolic 79 mm[Hg] Chair 1 [facility] 10-11-2017 14:08-0400 BP Systolic 131 mm[Hg] Chair 1 [facility] 10-11-2017 14:08-0400 Pulse (Heart Rate) 106 /min Chair 1 [facility] 10-11-2017 14:08-0400 Pulse Oximetry 95 % Chair 1 [facility] 10-11-2017 14:08-0400 Respiratory Rate 14 /min Chair 1 [facility] 08-25-2017 11:31-0400 BMI (Body Mass Index) 22.31 kg/m2 Willard Epperson [facility] 08-25-2017 11:31-0400 BP Diastolic 83 mm[Hg] Willard Epperson [facility] 08-25-2017 11:31-0400 BP Systolic 137 mm[Hg] Willard Epperson [facility] 08-25-2017 11:31-0400 Height 162.6 cm Willard Epperson [facility] 08-25-2017 11:31-0400 Pulse (Heart Rate) 81 /min Willard Epperson [facility] 08-25-2017 11:31-0400 Weight 58.97 kg Willard Epperson [facility] 05-25-2017 09:23-0500 BMI (Body Mass Index) 22.49 kg/m2 Willard Epperson [facility] Work Phone: 05-25-2017 09:23-0500 BP Diastolic 74 mm[Hg] Willard Epperson [employer] Work Phone: 05-25-2017 09:23-0500 BP Systolic 104 mm[Hg] Willard Epperson [employer] Work Phone: 05-25-2017 09:23-0500 Height 162.6 cm Willard Epperson [employer] Work Phone: 05-25-2017 09:23-0500 Pulse (Heart Rate) 106 /min Willard Epperson [employer] Work Phone: 05-25-2017 09:23-0500 Weight 59.42 kg Willard Epperson [employer] Work Phone: 05-04-2017 13:10-0500 Body Temperature 98.29 [degF] Physician No [facility] Work Phone: 05-04-2017 13:10-0500 BP Diastolic 77 mm[Hg] Physician No [facility] Work Phone: 05-04-2017 13:10-0500 BP Systolic 121 mm[Hg] Physician No [facility] Work Phone: 05-04-2017 13:10-0500 Pulse (Heart Rate) 104 /min Physician No [facility] Work Phone: 05-04-2017 13:10-0500 Pulse Oximetry 96 % Physician No [employer] Work Phone: 05-04-2017 11:55-0500 Respiratory Rate 14 /min Physician No [employer] Work Phone: 04-13-2017 16:00-0500 Body Temperature 98.01 [degF] Physician No [facility] Work Phone: 04-13-2017 16:00-0500 BP Diastolic 77 mm[Hg] Physician No [facility] Work Phone: 04-13-2017 16:00-0500 BP Systolic 137 mm[Hg] Physician No [employer] Work Phone: 04-13-2017 16:00-0500 Pulse (Heart Rate) 115 /min Physician No [facility] Work Phone: 04-13-2017 16:00-0500 Pulse Oximetry 96 % Physician Mercedes [facility] Work Phone: 04-13-2017 16:00-0500 Respiratory Rate 16 /min Physician Mercedes [facility] Work Phone: 02-13-2017 09:07-0400 BMI (Body Mass Index) 21.8 kg/m2 Willard Epperson [facility] Work Phone: 02-13-2017 09:07-0400 BP Diastolic 81 mm[Hg] Willard Epperson [facility] Work Phone: 02-13-2017 09:07-0400 BP Systolic 145 mm[Hg] Willard Epperson [facility] Work Phone: 02-13-2017 09:07-0400 Height 162.6 cm Willard Epperson [facility] Work Phone: 02-13-2017 09:07-0400 Pulse (Heart Rate) 73 /min Willard Epperson [facility] Work Phone: 02-13-2017 09:07-0400 Weight 57.61 kg Willard Zhou [facility] Work Phone: Encounters Encounter Date Encounter Type Care Provider Facility Start: 06-23-2022 End: 06-23-2022 Telemedicine consultation with patient Willard Epperson MD Work Phone: [facility] Procedures Date Procedure Procedure [...] 10-01-2028 Screening for malignant neoplasm of colon [facility] Start: 10-02-2023 Colonoscopy COLONOSCOPY [facility] Start: 10-02-2023 COLORECTAL CANCER SCREENING COLORECTAL CANCER SCREENING [facility] Start: 02-08-2022 Tetanus vaccination [facility] Start: 02-08-2022 Urine microalbumin profile DTAP,TDAP,TD (2 - Td or Tdap) [facility] Start: 02-03-2022 Influenza vaccination [facility] Start: 09-28-2021 End: 09-28-2021 ambulatory [facility] Start: 09-28-2021 End: 09-28-2021 Patient encounter procedure [facility] Start: 09-27-2021 End: 09-27-2021 Patient encounter procedure [facility] Start: 04-23-2021 COVID-19 Vaccine (3 - Booster for Pfizer series) COVID-19 Vaccine (3 - Booster for Pfizer series) [facility] Start: 04-16-2021 End: 04-16-2021 ambulatory 04/16/2021 Infusion/Injection Infusion Therapy [facility] Start: 04-09-2021 End: 04-09-2021 ambulatory 04/09/2021 Infusion/Injection Infusion Therapy [facility] Start: 04-09-2021 End: 04-09-2021 Patient encounter procedure 04/09/2021 Office Visit Neurology Willard Epperson MD [address] [place] [id number] [facility] Start: 03-23-2021 COVID-19 Vaccine (3 - Booster for Pfizer series) COVID-19 Vaccine (3 - Booster for Pfizer series) [facility] Start: 03-10-2021 Screening for malignant neoplasm of breast Mammogram [facility] Start: 03-10-2021 Screening mammography Mammogram [facility] Start: 03-05-2021 End: 10-19-2021 MR Brain With And Without Contrast MR Brain With And Without Contrast Imaging Routine Multiple sclerosis, primary progressive (HCC) Expected: 03/05/2021, Expires: 10/19/2021 [facility] Immunizations Immunization Date Immunization Notes Care Provider Fa cility 10-21-2020 COVID-19 vaccine, ag e 12+ yr (PFIZER-BIONTECH - PURPLE TOP) Joan Welch MD Work Phone: [facility] Work Phone: 09-28-2020 COVID-19 vaccine, ag e 12+ yr (PFIZER-BIONTECH - PURPLE TOP) Joan Welch MD Work Phone: [facility] Work Phone: 02-09-2017 AFLURIA QUAD 18, PF, syringe; Translations: [Afluria Quad (Pf) 60 McG/0.5 Ml Intramuscular Syringe] Jeanne Hilario [facility] Work Phone: 02-08-2016 influenza, seasonal, injectable Joan Welch MD Work Phone: [facility] 02-22-2013 influenza virus vaccine, unspecified formulation Joan Welch MD Work Phone: [facility] 03-03-2012 influenza virus vaccine, unspecified formulation Joan Welch MD Work Phone: [facility] 02-09-2012 tetanus toxoid, redu deniz diphtheria toxoid, and acellular pertussis vaccine, adsorbed Joan Welch MD Work Phone: [facility] 04-07-2010 pneumococcal polysaccharide vaccine, 23 valent Joan Welch MD Work Phone: [facility] 03-25-2008 influenza virus vaccine, unspecified formulation Joan Welch MD Work Phone: [facility] 04-03-2007 influenza virus vaccine, unspecified formulation Joan Welch MD Work Phone: [facility] Work Phone: 04-17-2006 influenza virus vaccine, unspecified formulation Joan Welch MD Work Phone: [facility] 05-17-2005 influenza virus vaccine, unspecified formulation Joan Welch MD Work Phone: [facility] Work Phone: Payers Date Payer Category Payer Unknown [id number] 2013 Unknown [id number] 2013 Unknown [id number] 2013 Unknown [employer] [id number] 2013-Present [phone] [address] [place] [address] [id number] 1960 Unknown [id number] 1960 Unknown [id number] 1960 Unknown [id number] 1960 Unknown [id number] 1960 Unknown [id number] 1960 Unknown [id number] 1960 Unknown [id number] 1960 Unknown [id number] 1960 Unknown [id number] 1960 Unknown [id number] 1960 Unknown [id number] Social History Date Type Detail Facility Start: 04-13-2017 End: 10-11-2017 Tobacco smoking status UTIS Never smoker [facility] Work Phone: Start: 1960 Sex Assigned At Not on file [facility] [employer] Work Phone: Start: 04-16-2019 End: 07-14-2021 Alcohol intake Current non-drinker of alcohol (finding) [facility] Exposure to SARS-CoV -2 (event) Not sure [facility] Start: 04-13-2017 End: 10-18-2019 Tobacco use and exposure Never used [facility] Clinical Notes 10-16-2020 to 11-09-2022 Willard Epperson MD - 06/23/2022 11:31 AM ESTPatient InstructionsPatient InstructionsDatre Epperson MD - 04/09/2021 8:00 AM EDTSmitWillard cooper MD - 10/29/2020 10:03 AM EDT Note Date & Type Note Facility 11-09-2022 Note Patient Outreach (IN TMMN) BRITNEY PERAZA ([id number]) 1960 F TXT Date Time Provider Department [...] for screening mammogram for breast cancer [Z12.31] Order(s):[facility] SCREENING [[id number]] Order #: [id number] FUTURE Prescriptions as of 11/14/2022 - atenolol [...] Encounter Status:Closed by KODAK PRODUSER on 11/14/22 [facility] 06-23-2022 History of Present illness Narrative Left voicemail message with patient. Was not sure if she wanted to continue to follow-up in clinic. Would be happy to see her back, even if she is no longer on disease modifying therapy to work on symptomatic management. Provided with the number for the front desk representative if she is interested in rescheduling. documented in this encounter [facility] 12-01-2021 Note Patient Outreach (IN TMMN) BRITNEY PERAZA ([id number]) 1960 F TXT Date Time Provider Department [...] for screening mammogram for breast cancer [Z12.31] Order(s):[facility] SCREENING [[id number]] Order #: [id number] FUTURE Prescriptions as of 12/06/2021 - atenolol [...] sclerosis) (HCC) [G35] 01/14/2019 Encounter Status:Closed by [employer], PRODUSER on 12/06/21 [facility] 04-09-2021 Instructions Zahra Pratt RN - [...] the medicines you take, including prescription and mbnm-spb-cemwtgc medicines. vitamins, and herbal supplements. How will [...] may report side effects to FDA at [phone]-[phone]. General information about the safe and effective [...] sodium acetate trihydrate, trehalose dihydrate. Manufactured by: [employer] A Member of the [employer], [address] [place] [address], [place] [address] [place] License No. [id number] For more information, go to [email or web address] or call . This Medication Guide has been approved by the U.S. Food and Drug Administration documented in this encounter [facility] 04-09-2021 Instructions Willard Epperson MD - 04/09/2021 8:16 AM EDT Central Schedulin545- [phone] documented in this encounter [facility] 04-09-2021 History of Present illness Narrative Images from the original note were not included. Patient Name: Britney Peraza : 1960 MR #: [id number] Other Physicians: Joan Welch MD (Primary Care Physician) [facility] Follow-up Visit 04/09/2021 [...] forward: She previously was employed in a [employer] She went to the 12th grade in [...] discussed above. I recommend continuing Vitamin D3 06188 IU once every other daily. Goal levels [...] me in 6 months. Willard Epperson MD [facility] Neurological Physicians Neuroimmunology/ Neuroinfectious Disease ([facility]avio Baumann, and [place] [facility]) General Neurology (El[place]) ([place]) [place] Address: [address] [place] [address], [address] Address [address] [facility], [address] [place] [facility] [address] [place], [place] [id number] Chief Complaint: Neuro-immunology clinic follow up INTERIM HISTORY Britney Peraza is here for follow up. Last was seen 10/23. Accompanied by her sister today. She has her infusion scheduled later this morning. No new symptoms to report, though her sister feels she minimizes worsening gait impairment. We had placed orders for [facility] in [facility]. They had been providing her with [...] Swelling Naproxen Sodium Hives, Itching and Swelling Omaejgltxdvn-Xom-Qjyogwtx tachycardia tachycardia Penicillins Hives Sulfa (Sulfonamide Antibiotics) Hives Tetracycline Hives Current Outpatient Medications Medication Sig Dispense Refill acetaminophen (TYLENOL) 500 MG tablet Take 500 mg by mouth every 6 (six) hours as needed for pain. AFLURIA QUAD [phone], PF, syringe ADMINISTERED AT DDM 0 atenolol [...] documentation: 40 minutes. documented in this encounter [facility] 01-08-2021 Miscellaneous Notes Changed pharmacies documented in this encounter [facility] 10-29-2020 History of Present illness Narrative Are we able to fax this order for home health to [facility] in [facility]? Contact is: Toll Free [phone] Also, can we reschedule her Apr visit [...] her regarding this? documented in this encounter [facility] 10-16-2020 History of Present illness Narrative Images from the original note were not included. Patient Name: Britney Peraza : 1960 MR #: [id number] Other Physicians: Joan Welch MD (Primary Care Physician) [facility] Follow-up Visit 10/16/2020 [...] forward: She previously was employed in a [employer] She went to the 12th grade in [...] this time I recommend continuing Vitamin D3 44544 IU once daily. Goal levels of Vitamin [...] proximity to her next infusion. Follow-up with ak April 2021. Willard Epperson MD [facility] Neurological Physicians Neuroimmunology/ Neuroinfectious Disease ([place], and [place] outpatient clinics) General Neurology ([place]) ([place]) [place] Address: [address] [place] [address], [address] Address [address] [facility], [address] [place] [address] [facility] [address] [place] [address] Chief Complaint: Neuro-immunology clinic follow up INTERIM HISTORY Britney Peraza is here for follow up. She [...] Swelling Naproxen Sodium Hives, Itching and Swelling Nrjunnhazloz-Fqw-Wyedjccl tachycardia tachycardia Penicillins Hives Sulfa (Sulfonamide Antibiotics) Hives Tetracycline Hives Current Outpatient Medications Medication Sig Dispense Refill acetaminophen (TYLENOL) 500 MG tablet Take 500 mg by mouth every 6 (six) hours as needed for pain. AFLURIA QUAD [id number], PF, syringe ADMINISTERED AT DDM 0 atenolol [...] of T2/FLAIR signal abnormalities compatible with demyelination. [employer] Workstation ID: [id number] Results for orders placed [...] air cells are clear. Nasopharynx is normal. Duct Layer spaces are normal. Orbital contents are normal. [...] or enhancing lesions. 3. Stable brain atrophy. [facility] Workstation ID: [id number] Total time spent, including over 50% or more spent face to face with the patient discussing the risk and benefits of any medications, reviewing available data and counseling patient on treatment plan was 30 minutes. The aforementioned impression & plan were discussed with the patient. documented in this encounter [facility] 10-16-2020 Instructions LiangLata RN - 10/16/2020 12:37 [...] Pt voiced understanding. documented in this encounter [facility] 10-16-2020 Instructions Lata Liang RN - 10/16/2020 [...] any potential adverse effects on the breastfed from OCREVUS or from the underlying maternal [...] Pt voiced understanding. documented in this encounter [facility] 10-16-2020 History of Present illness Narrative Labs obtained with insertion of PIV, which will be used for the infusion today. Specimens labeled per policy and taken to the lab in the [facility] for processing. documented in this encounter [facility] 10-16-2020 History of Present illness Narrative Labs obtained with insertion of PIV, which will be used for the infusion today. Specimens labeled per policy and taken to the lab in the [facility] for processing. documented in this encounter [facility] Diagnosis Multiple sclerosis, primary progressive (HCC)- Primary [facility] Diagnosis Multiple sclerosis, primary progressive (HCC)- Primary Vitamin D deficiency Paresis of lower extremity (HCC) Unspecified paralysis History of gait disorder [facility] Multiple [facility], primary progressive (HCC)- Primary [facility] Diagnosis Vitamin D deficiency [facility] Diagnosis Multiple sclerosis, primary progressive (HCC)- Primary Multiple sclerosis (HCC) Multiple sclerosis [facility] Diagnosis Multiple sclerosis, primary progressive (HCC)- Primary Vitamin D deficiency Spasticity Abnormal involuntary movements Ataxia Lack of coordination Cognitive impairment Unspecified persistent mental disorders due to conditions classified elsewhere [facility] Diagnosis Encounter for screening mammogram for breast cancer documented in this encounter [facility] note* Diagnosis Multiple sclerosis, primary progressive (HCC)- Primary [facility] Diagnostic Procedure Only (Routine) - Pending Review Specialty Diagnoses / Procedures Referred By Stormac t Referred To Contact [facility] Diagnoses Encounter for screening mammogram for breast cancer Procedures HUBERT SCREENING SCREENING MAMMOGRAPHY BI 2-VIEW BREAST INC Joan Palomino MD [address] [place] [address] [facility] [address] [place] [address] Referral ID Status Reason Start Date Expiration Date Visits Requested Visits Authorized [id number] Pending Review Auto-Generat ed Referral 12/01/2021 12/31/2022 1 1 [facility] Instructions * Patient Instructions - Kristina Riddle [...] would require purchasing a compounded version from [employer]. One source to purchase this is https://DealCurious/product/3-ivtwwg-gyxu-inavwgi-xxxxwp-jic-90-count/ Physical Therapy: 1. Recommend return to PT [...] and any potentialadverse effects on the breastfed from OCREVUS or from the underlying maternal [...] and any potentialadverse effects on the breastfed from OCREVUS or from the underlying maternal [...] the medicines you take, including prescription and daqe-wsd-oqaywaw medicines, vitamins_._and herbal supplements. _ _ _ [...] may report side effects to FDA at 1-451-ANT-6708. General Information about the safe and effective [...] sodium acetate trihydrate, trehalose dihydrate. Manufactured by: [employer] A Member of the [employer], [address] [place] [address], [place] [address] [place] License No.[id number] For more lnformation, go to www.EZ-Ticket or_call 4-611-320-38BZ. This Medication Guide has been approved by [...] Procedures MR Brain With And Without Contrast Wlilard Epperson MD [address] [place] [address] Status Reason Specialty Diagnoses / Procedures Referred By Contact Referred To Contact Authorized Specialty Services Required/Patien t's Best Interest Physical Therapy Diagnoses Multiple sclerosis (HCC) Willard Epperson MD [address] [place] [address] Status Reason Specialty Diagnoses / Procedures Referre d By Contact Referred To Contact Closed Radiology Diagnoses Multiple sclerosis (HCC) Procedures MR Brain Without Contrast Willard Epperson MD [address] [place] [address] Status Reason Specialty Diagnoses / Procedures Referred By Contact Referred To Contact Closed Specialty Services Required/Patien t's Best Interest Jewelry Sales Associate Diagnoses Multiple sclerosis (HCC) Willard Epperson MD [address] [place] [address] Dory Velez LISW-S Status Reason Specialty Diagnoses / Procedures Referred By Contact Referred To Contact New Request Radiology Diagnoses Multiple sclerosis, primary progressive (HCC) Procedures MR Thoracic Spine With And Without Contrast Willard Epperson MD [address] [place] [address] Status Reason Specialty Diagnoses / Procedures Referred By Contact Referred To Contact New Request Radiology Diagnoses Multiple sclerosis, primary progressive (HCC) Procedures MR Cervical Spine With And Without Contrast Willard Epperson MD [address] [facility] [address] [place] [address] Status Reason Specialty Diagnoses / Procedures Referred By Contact Referred To Contact New Request Radiology Diagnoses Multiple sclerosis, primary progressive (HCC) Procedures MR Brain With And Without Contrast Willard Epperson MD [facility] [address] [place] [address] Status Reason Specialty Diagnoses / Procedures Referred By Contact Referred To Contact Authorized Specialty Services Required/Patie nt's Best Interest Home Health Services Diagnoses Multiple sclerosis, primary progressive (HCC) Willard Epperson MD [facility] [address] [place] [address] Specialty Diagnoses / Procedures Referred By Contac t Referred To Contact Jewelry Sales Associate Diagnoses Multiple sclerosis, primary progressive (HCC) Willard Epperson MD [facility] [address] [place] [address] Dory Velez LISW-S Referral ID Status Reason Start Date Expiration Date V isits Requested Visits Authorized [id number] Closed Specialty Services Required/[place] ent's Best Interest 04/09/2021 04/09/2022 1 1 Advance Directives No Advanced Directives Records FoundDocuments on File Type Date Recorded 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 Advance Directives and Livin g Will 04/12/2019 8:19 AM Documents on File Type Date Recorded 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 Advance Directives and Livin g Will 04/12/2019 8:19 AM Documents on File Type Date Recorded 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 Advance Directives and Livin g Will 10/18/2019 6:47 AM Documents on File Type Date Recorded 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 Advance Directives and Livin g Will 10/18/2019 6:47 AM Documents on File Type Date Recorded 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 Advance Directives and Livin g Will 04/17/2020 6:47 AM Documents on File Type Date Recorded 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 Advance Directives and Livin g Will 04/17/2020 6:47 AM Documents on File Type Date Recorded 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 Advance Directives and Livin g Will 10/16/2020 6:47 AM Documents on File Type Date Recorded 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 Advance Directives and Livin g Will 10/16/2020 6:47 AM Documents on File Type Date Recorded 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 Advance Directives and Livin g Will 04/09/2021 6:47 AM Documents on File Type Date Recorded 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 3. Please sign up for the [email or web address] patient portal. [employer] provides assess to your medical record and test results, allows you to communicate with your care providers, and allows you to complete patient questionnaires prior to each clinic visit. 4. When your testing is completed, your MS care team will review all results and contact you if a finding requires follow up before your next visit. Otherwisee, we will discuss your test results rekw-tg-gwvn at your next clinic visit. Many of your testing results, however, can be reviewed online through Add[employer]. MS Disease Summary Primary Neurological Diagnosis and [...] hours as needed for pain. AFLURIA QUAD [id number], PF, syringe ADMINISTERED AT DDM 0 atenolol [...] Swelling Naproxen Sodium Hives, Itching and Swelling Jowwpgdceqsw-Klr-Sbhycvrj tachycardia tachycardia Penicillins Hives Sulfa (Sulfonamide Antibiotics) [...] file Gets together: Not on file Attends sikhism service: Not on file Active member of [...] of links to MS educational sources online: [facility] Multiple Sclerosis Center (www.[facility].com/MS) Multiple Sclerosis Association of [place] (www.mymsaa.org) Multiple Sclerosis Foundation (www.msfocus.org) Can do Multiple Sclerosis ( www.mscando.org ) National Multiple Sclerosis Society (www.nationalmssociety.org) Twitter: @[facility] Facebook: [facility] Instagram: [employer] 5. For information on the [facility] MS Center's clinical trial program contact Sari Bolden [facility]. 6. MS Groups take place at [facility] Education and Resource Center at [facility]: [address] [place] [address]. Parking vouchers will be provided. Life with [...] the Monday of the month from 5:30-7pm. Caregiver/Machine Setter Supervisor Support Group: offers opportunities to connect with [...] experienced yoga practitioners. Pre- registration is required: [phone] 7. Education regarding disease modifying therapy discussed [...] Willard Epperson MD Neuroimmunology and Neuroinfectious Disease [facility] Multiple Sclerosis Center at [facility] and [place] [facility] ([place] fax) [place] Address: [address] [place] [address], [address] [place] [address] [place] Address [address] [facility], [address] [place] [address] documented in this encounter* Jeanne Hilario CMA - 04/18/2019 8:25 AM EST Faxed [facility] ([phone]) a physical therapy referral along with face sheet and Insurance card to call patient to schedule. documented in this encounter* Willard Epperson MD - 10/18/2019 10:43 AM EDT Telephone Visit Via Phone Call [facility] [address] [facility] NEUROSCIENCE [address] [facility] [phone] Telephone Visit [facility] 10/18/2019 Willard Epperson MD Provider Location: [facility] Patient Location Street Openings Inspector: None Patient Location: Patient's Home Patient: Britney [...] there are inherent diagnostic limitations compared to bjtw-zz-ylaw evaluations. We elected toproceed with the telephone visit telemedicine consultation. HPI Today she is currently at the [facility] receiving her infusion. She has been feeling [...] hours as needed for pain. AFLURIA QUAD [id number], PF, SYRINGE ADMINISTERED AT DDM ATENOLOL (TENORMIN) [...] Continue with vitamin D 5000 units daily mmhu-tgu-tionplh Continue Ampyra 10 mg twice daily and [...] EDT Faxed new Physical Therapy order to [facility] ([phone]) to call and schedule in home visits [...] her biggest problem. Patient lives alone in [place], [place] and sister lives in [place]. Falls in past 6 months: > 6, [...] as her aide is only allowed to pick up driver groceries, so pt does not have easy access to food/shopping. Sandi lives in [place]. In reviewing past and present in-home supports, [...] info provided: Aging and Disability Resource Center ([facility]) at - Re: PASSPORT program. Advance Directives Packet * Willard Epperson MD - 04/17/2020 10:30 AM EST Patient Name: Britney Peraza : 1960 MR #: [id number] Other Physicians: Joan Welch MD (Primary Care Physician) [facility] Multiple Sclerosis Center Follow-up Visit 04/17/2020 [...] me in 3 months. 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 Confirms about 12 calls with [employer] over the last year. Would benefit significantly [...] Swelling Naproxen Sodium Hives, Itching and Swelling Uxypfvpkifdt-Wyt-Mdttxsba tachycardia tachycardia Penicillins Hives Sulfa (Sulfonamide Antibiotics) Hives Tetracycline Hives Current Outpatient Medications Medication Sig Dispense Refill acetaminophen (TYLENOL) 500 MG tablet Take 500 mg by mouth every 6 (six) hours as needed for pain. AFLURIA QUAD [id number], PF, syringe ADMINISTERED AT [facility] 0 atenolol (TENORMIN) 25 MG tablet [...] EST Faxed a physical therapy order to [facility] ([phone]) along with face sheet and Insurance card to call and schedule with patient. documented in this encounter* Willard Epperson MD - 09/28/2018 3:49 PM EDT [facility] Multiple Sclerosis Center at [facility] Clinic Follow Up Note 09/28/2018 IMPRESSIONS Britney [...] trials and in our experience here at [facility], most infusion related reactions are mild to [...] visit. 3. Please sign up for the [email or web address] patient portal. [employer] provides assess to your medical record and test results, allows you to communicate with your care providers, and allows you to complete patient questionnaires prior to each clinic visit. 4. When your testing is completed, your MS care team will review all results and contact you if a finding requires follow up before your next visit. Otherwisee, we will discuss your test results xyjx-tw-dpod at your next clinic visit. Many of your testing results, however, can be reviewed online through Add[employer]TV. DISEASE SUMMARY Primary Neurological Diagnosis and Date [...] is also noticeable by her sister and cslgzkt-jn-ecw with regards toambulation. There have been no [...] hours as needed for pain. AFLURIA QUAD [phone], PF, syringe ADMINISTERED AT DDM 0 atenolol [...] Swelling Naproxen Sodium Hives, Itching and Swelling Wvkfnixtstlr-Xfc-Quhntscv tachycardia tachycardia Penicillins Hives Sulfa (Sulfonamide Antibiotics) [...] Willard Epperson MD Neuroimmunology and Neuroinfectious Disease [facility] Multiple Sclerosis Center at [facility] and [place] [facility] ([place] fax) [place] Address: [address] [place] [address], [address] Address [address] [place] [address], [address] [place] [address] documented in this encounter Summary Purpose Family [...] accepted: Orders in this encounter This technologist ([id number]) and ([id number]) wore surgical masks/gloves during MRI exam. Patient wore surgical mask. documented in this encounter Reason for Visit (unrecogniz ed section and content) Specialty Diagnoses / Procedures Referred By Gaston espana Referred To Contact Infusion Therapy Diagnoses Multiple sclerosis, primary progressive (HCC) Procedures WY INJECTION, OCRELIZUMAB, 1 MG Willard Epperson MD [address] [facility] [address] [place] [address] [facility] [address] [place] [address] Referral ID Status Reason Start Date Expiration Date V isits Requested Visits Authorized [id number] Pending Review 03/31/2021 05/30/2021 1 1 Status Reason Specialty Diagnoses / Procedures Referre d By Contact Referred To Contact Closed Radiology Diagnoses Multiple sclerosis (HCC) Procedures MR Brain With And Without Contrast Willard Epperson MD [address] [facility] [address] [place] [address] Reason Comments Multiple Sclerosis 6 month Ocrevus Status Reason Specialty Diagnoses / Procedures Referred By Contact Referred To Contact Closed Infusion Therapy Diagnoses Multiple sclerosis Procedures W[place] INJECTION, OCRELIZUMAB, 1 MG Willard Epperson MD [address] [facility] [address] [place] [address] [facility] [address] [place] [address] Reason Comments Multiple Sclerosis Status Reason Specialty Diagnoses / Procedures Referred By Contact Referred To Contact Closed Infusion Therapy Diagnoses Multiple sclerosis, primary progressive (HCC) Procedures WY INJECTION, OCRELIZUMAB, 1 MG Willard Epperson MD [address] [place] [address] [facility] [address] [place] [address] Status Reason Specialty Diagnoses / Procedures Referre d By Contact Referred To Contact Closed Radiology Diagnoses Multiple sclerosis (HCC) Procedures MR Brain Without Contrast Willard Epperson MD [address] [facility] [address] [place] [address] Status Reason Specialty Diagnoses / Procedures Referred By Contact Referred To Contact Authorized Infusion Therapy Diagnoses Multiple sclerosis Ocrevus 6 months Procedures WY INJECTION, OCRELIZUMAB, 1 MG CHEMO Willard Epperson MD [address] [facility] [address] [place] [address] [facility] [address] [place] [address] Status Reason Specialty Diagnoses / Procedures Referred By Contact Referred To Contact Canceled Specialty Services Required/Patie nt's Best Interest Home Health Agency / Home Health Services Diagnoses Multiple sclerosis, primary progressive (HCC) Willard Epperson MD [address] [facility] [address] [place] [address] [address] Status Reason Specialty Diagnoses / Procedures Referred By Contact Referred To Contact Authorized Infusion Therapy Diagnoses Multiple sclerosis, primary progressive (HCC) Procedures WY INJECTION, OCRELIZUMAB, 1 MG Willard Epperson MD [address] [facility] [address] [place] [address] [facility] [address] [place] [address] Reason Comments Multiple Sclerosis Ocrevus 6mo, 2hr Status Reason Specialty Diagnoses / Procedures Referred By Contact Referred To Contact Closed Infusion Therapy Diagnoses Multiple sclerosis Ocrevus 6 months Procedures WY INJECTION, OCRELIZUMAB, 1 MG CHEMO Willard Epperson MD [address] [facility] [address] [place] [address] [facility] [address] [facility] [place] [address] Reason Onset Date Comments Medication Refill 01/08/2021 Reason Comments Multiple Sclerosis Care Teams (unrecognized sec tion and content) Timber Killer Relationship Specialty Start Date End Date Joan Welch MD [address] [facility] [address] [place] [address] PCP - General Family Medicine 09/28/18 Timber Killer Relationship Specialty Start Date End Date Joan Welch MD [address] [phone] PCP - General Family Medicine 09/28/18 Timber Killer Relationship Specialty Start Date End Date Joan Welch MD [address] [phone] PCP - General Family Medicine 09/28/18 Timber Killer Relationship Specialty Start Date End Date Joan Welch MD [address] [place] [address] [phone] PCP - General Family Practice 05/11/16 Timber Killer Relationship Specialty Start Date End Date Joan Welch MD [address] [place] [address] [phone] PCP - General Family Medicine 09/28/18 INFORMATION SOURCE (unrecogn ized section and content) DATE CREATED AUTHOR AUTHOR'S ORGANIZ ATION 01/15/2022 [facility] DATE CREATED AUTHOR AUTHOR'S ORGANIZ ATION 11/16/2022 [facility] Source Comments (unrecognize d section and content) In the event this informatio n is protected by the Federal Confidentiality of Alcohol and Drug Abuse Patient Records regulations: The Federal rules restrict any use of the information to criminally investigate or prosecute any alcohol or drug abuse patient.[facility] FOR RECORDS PERTAINING TO PATIENTS WHO ARE [...] BE BASED ON THE PRIMARY CLINICAL RECORDS. [facility]. provides no warranty or guarantee of the accuracy or completeness of information in this document.
[2023-07-03 08:42] LABS: Anion Gap 7 (5-15); BUN 20 mg/dL (7-18); BUN/Creat Ratio 29.4 RATIO (10-20); Calcium,Total 9.8 mg/dL (8.5-10.1); Chloride 109 mmol/L (98-107); Creatinine, Serum 0.68 mg/dL (0.55-1.02); EST Glomerular Filtration Rate 92 mL/min (>60); Est Glom Filt Rate - Afr Amer 111 mL/min (>60); Glucose 156 mg/dL (74-106); Potassium 3.5 mmol/L (3.5-5.1); Sodium Level 141 mmol/L (136-145)
== END ==
LOC: OLS.WHLEAS 04:00
PROVIDERS: PCP Family Medicine; Referring Provider Internal Medicine; Visit Provider Internal Medicine
DX: N17.9 Acute kidney failure, unspecified (principal); G35 Multiple sclerosis; M62.81 Muscle weakness (generalized)
CPT/HCPCS: 36415; 80048

== ENCOUNTER → 2023-07-17 | Outpatient (REF) | payer MEDICARE, MEDICAID, SELFPAY ==
[2023-07-17 10:48] LABS: Anion Gap 10 (5-15); BUN 21 mg/dL (7-18); BUN/Creat Ratio 31.3 RATIO (10-20); Calcium,Total 9.6 mg/dL (8.5-10.1); Chloride 109 mmol/L (98-107); Creatinine, Serum 0.67 mg/dL (0.55-1.02); EST Glomerular Filtration Rate 94 mL/min (>60); Est Glom Filt Rate - Afr Amer 114 mL/min (>60); Glucose 150 mg/dL (74-106); Potassium 3.8 mmol/L (3.5-5.1); Sodium Level 143 mmol/L (136-145)
== END ==
LOC: OLS.WHLEAS 05:00
PROVIDERS: PCP Family Medicine; Visit Provider Internal Medicine
DX: E11.9 Type 2 diabetes mellitus without complications (principal)
CPT/HCPCS: 36415; 80048

== ENCOUNTER → 2023-08-08 | Outpatient (REF) | payer MEDICARE, MEDICAID, SELFPAY ==
--- OUTSIDE RECORDS SUMMARY | 2023-08-08 04:50 | XMS RPT_ITS | CCD ---
Author Name Unknown Address [address] [place] [address] Organization [facility] Care Team Providers Care Dinkey Skinner Name Role Phone No, Physician Unavailable Unavailable [...] / Caffeine / Orphenadrine Drug Allergy 5 [facility] NSAIDs (20 sources) Ibuprofen Drug Allergy 5 Swelling, Hives, Itching [facility] Penicillins (antibiotic) (11 sources) Penicillins Drug Allergy 5 [facility] Sulfonamides (antibiotic) (11 sources) Sulfonamides (Antibiotic) Drug Allergy 6 [facility] Tetracyclines (antibiotic) (11 sources) Tetracycline Drug Allergy 5 [facility] (20 sources) aspirin / caffeine / orphenadrine; Translations: [ORPHENADRINE- A-CAFFEINE] Propensity to adverse reactions to drug 5 [facility] Work Phone: (20 sources) ibuprofen; Translations: [IBUPROFEN] Propensity to adverse reactions to drug 8 Swelling [facility] Work Phone: (20 sources) naproxen; Translations: [NAPROXEN SODIUM] Propensity to adverse reactions to drug 5 Hives, Itching, Swelling [facility] Work Phone: (20 sources) Penicillins; Translations: [PENICILLINS] Propensity to adverse reactions to drug 5 [facility] Work Phone: (20 sources) Sulfonamides (Antibiotic); Translations: [SULFA (SULFONAMIDE ANTIBIOTICS)] Propensity to adverse reactions to drug 6 [facility] Work Phone: (20 sources) tetracycline; Translations: [TETRACYCLINE] Propensity to adverse reactions to drug 5 [facility] Work Phone: (6 sources) Penicillins Propensity to adverse reactions to drug 5 [facility] (8 sources) Sulfonamides (Antibiotic) Propensity to adverse reactions to drug 6 [facility] (2 sources) Penicillins Propensity to adverse reactions [facility] (1 source) tiZANidine Drug Allergy 9 Other: See Comments [facility] Medications Current Medications Medication Drug Class(es) [...] 13:25-0400 Body temperature 97.9 [degF] Chair 7 [facility] 04-09-2021 13:25-0400 Diastolic blood pressure 80 mm[Hg] Chair 7 [facility] 04-09-2021 13:25-0400 Heart rate 123 /min Chair 7 [facility] 04-09-2021 13:25-0400 SaO2% (BldA) [Mass fraction] 97 % Chair 7 [facility] 04-09-2021 13:25-0400 Systolic blood pressure 133 mm[Hg] Chair 7 [facility] 04-09-2021 11:06-0400 Respiratory rate 16 /min Chair 7 [facility] 04-09-2021 07:57-0400 Body height 162.6 cm Willard Epperson MD Work Phone: [facility] 04-09-2021 07:57-0400 Body mass index (BMI) [Ratio] 25.06 kg/m2 Willard Epperson MD Work Phone: [facility] 04-09-2021 07:57-0400 Body weight 66.22 kg Willard Epperson MD Work Phone: [facility] 04-09-2021 07:57-0400 Diastolic blood pressure 65 mm[Hg] Willard Epperson MD Work Phone: [facility] 04-09-2021 07:57-0400 Heart rate 111 /min Willard Epperson MD Work Phone: [facility] 04-09-2021 07:57-0400 Systolic blood pressure 123 mm[Hg] Willard Epperson MD Work Phone: [facility] 10-16-2020 12:50-0400 Body temperature 98.29 [degF] Chair 2 [facility] 10-16-2020 12:50-0400 Diastolic blood pressure 63 mm[Hg] Chair 2 [facility] 10-16-2020 12:50-0400 Heart rate 130 /min Chair 2 [facility] 10-16-2020 12:50-0400 SaO2% (BldA) [Mass fraction] 96 % Chair 2 [facility] 10-16-2020 12:50-0400 Systolic blood pressure 128 mm[Hg] Chair 2 [facility] 10-16-2020 11:34-0400 Respiratory rate 16 /min Chair 2 [facility] 04-17-2020 14:51-0500 BP Diastolic 70 mm[Hg] Chair 2 [facility] 04-17-2020 14:51-0500 BP Systolic 136 mm[Hg] Chair 2 [facility] 04-17-2020 14:51-0500 Pulse (Heart Rate) 126 /min Chair 2 [facility] 04-17-2020 14:51-0500 Pulse Oximetry 97 % Chair 2 [facility] 04-17-2020 14:51-0500 Respiratory Rate 16 /min Chair 2 [facility] 04-17-2020 14:48-0500 Body Temperature 98.4 [degF] Chair 2 [facility] 04-17-2020 10:41-0500 BMI (Body Mass Index) 22.31 kg/m2 Willard Epperson [facility] 04-17-2020 10:41-0500 Body weight 58.97 kg Willard Epperson [facility] 04-17-2020 10:41-0500 BP Diastolic 80 mm[Hg] Willard Epperson [facility] 04-17-2020 10:41-0500 BP Systolic 131 mm[Hg] Willard Epperson [facility] 04-17-2020 10:41-0500 Height 162.6 cm Willard Epperson [facility] 04-17-2020 10:41-0500 Pulse (Heart Rate) 86 /min Willard Epperson [facility] 10-18-2019 13:54-0400 Body Temperature 97.5 [degF] Chair 1 [facility] 10-18-2019 13:54-0400 BP Diastolic 79 mm[Hg] Chair 1 [facility] 10-18-2019 13:54-0400 BP Systolic 137 mm[Hg] Chair 1 [facility] 10-18-2019 13:54-0400 Pulse (Heart Rate) 112 /min Chair 1 [facility] 10-18-2019 13:54-0400 Pulse Oximetry 95 % Chair 1 [facility] 10-18-2019 13:54-0400 Respiratory Rate 20 /min Chair 1 [facility] 10-18-2019 07:03-0400 BMI (Body Mass Index) 22.31 kg/m2 Willard Epperson [facility] 10-18-2019 07:03-0400 Body weight 58.97 kg Willard Epperson [facility] 10-18-2019 07:03-0400 Height 162.6 cm Willard Epperson [facility] 04-12-2019 12:17-0500 BMI (Body Mass Index) 22.31 kg/m2 Willard Epperson [facility] 04-12-2019 12:17-0500 Body weight 58.97 kg Willard Epperson [facility] 04-12-2019 12:17-0500 BP Diastolic 78 mm[Hg] Willard Epperson [facility] 04-12-2019 12:17-0500 BP Systolic 124 mm[Hg] Willard Epperson [facility] 04-12-2019 12:17-0500 Height 162.6 cm Willard Epperson [facility] 04-12-2019 12:17-0500 Pulse (Heart Rate) 106 /min Willard Epperson [facility] 04-12-2019 12:12-0500 Body Temperature 97.9 [degF] Chair 5 [facility] 04-12-2019 12:12-0500 BP Diastolic 81 mm[Hg] Chair 5 [facility] 04-12-2019 12:12-0500 BP Systolic 134 mm[Hg] Chair 5 [facility] 04-12-2019 12:12-0500 Pulse (Heart Rate) 104 /min Chair 5 [facility] 04-12-2019 12:12-0500 Pulse Oximetry 97 % Chair 5 [facility] 04-12-2019 12:12-0500 Respiratory Rate 16 /min Chair 5 [facility] 10-12-2018 13:25-0400 Body Temperature 98.1 [degF] Chair 1 [facility] 10-12-2018 13:25-0400 BP Diastolic 74 mm[Hg] Chair 1 [facility] 10-12-2018 13:25-0400 BP Systolic 137 mm[Hg] Chair 1 [facility] 10-12-2018 13:25-0400 Pulse (Heart Rate) 130 /min Chair 1 [facility] 10-12-2018 13:25-0400 Pulse Oximetry 95 % Chair 1 [facility] 10-12-2018 10:14-0400 Respiratory Rate 14 /min Chair 1 [facility] 09-28-2018 15:44-0400 BMI (Body Mass Index) 22.31 kg/m2 Willard Epperson [facility] 09-28-2018 15:44-0400 Body weight 58.97 kg Willard Epperson [facility] 09-28-2018 15:44-0400 BP Diastolic 80 mm[Hg] Willard Epperson [facility] 09-28-2018 15:44-0400 BP Systolic 145 mm[Hg] Willard Epperson [facility] 09-28-2018 15:44-0400 Height 162.6 cm Willard Epperson [facility] 09-28-2018 15:44-0400 Pulse (Heart Rate) 89 /min Willard Epperson [facility] 09-28-2018 11:38-0400 BMI (Body Mass Index) 22.31 kg/m2 Willard Epperson [facility] 09-28-2018 11:38-0400 Height 162.6 cm Willard Epperson [facility] 09-28-2018 11:38-0400 Weight 58.97 kg Willard Epperson [facility] 01-19-2018 11:34-0400 BMI (Body Mass Index) 20.77 kg/m2 Willard Epperson [facility] 01-19-2018 11:34-0400 BP Diastolic 70 mm[Hg] Willard Epperson [facility] 01-19-2018 11:34-0400 BP Systolic 118 mm[Hg] Willard Epperson [facility] 01-19-2018 11:34-0400 Height 162.6 cm Willard Epperson [facility] 01-19-2018 11:34-0400 Pulse (Heart Rate) 76 /min Willard Epperson [facility] 01-19-2018 11:34-0400 Weight 54.88 kg Willard Epperson [facility] 10-11-2017 14:08-0400 Body Temperature 98.1 [degF] Chair 1 [facility] 10-11-2017 14:08-0400 BP Diastolic 79 mm[Hg] Chair 1 [facility] 10-11-2017 14:08-0400 BP Systolic 131 mm[Hg] Chair 1 [facility] 10-11-2017 14:08-0400 Pulse (Heart Rate) 106 /min Chair 1 [facility] 10-11-2017 14:08-0400 Pulse Oximetry 95 % Chair 1 [facility] 10-11-2017 14:08-0400 Respiratory Rate 14 /min Chair 1 [facility] 08-25-2017 11:31-0400 BMI (Body Mass Index) 22.31 kg/m2 Willard Epperson [facility] 08-25-2017 11:31-0400 BP Diastolic 83 mm[Hg] Willard Epperson [facility] 08-25-2017 11:31-0400 BP Systolic 137 mm[Hg] Willard Epperson [facility] 08-25-2017 11:31-0400 Height 162.6 cm Willard Epperson [facility] 08-25-2017 11:31-0400 Pulse (Heart Rate) 81 /min Willard Epperson [facility] 08-25-2017 11:31-0400 Weight 58.97 kg Willard Epperson [facility] 05-25-2017 09:23-0500 BMI (Body Mass Index) 22.49 kg/m2 Willard Epperson [facility] Work Phone: 05-25-2017 09:23-0500 BP Diastolic 74 mm[Hg] Willard Epperson [facility] Work Phone: 05-25-2017 09:23-0500 BP Systolic 104 mm[Hg] Willard Epperson [facility] Work Phone: 05-25-2017 09:23-0500 Height 162.6 cm Willard Epperson [facility] Work Phone: 05-25-2017 09:23-0500 Pulse (Heart Rate) 106 /min Willard Epperson [facility] Work Phone: 05-25-2017 09:23-0500 Weight 59.42 kg Willard Epperson [facility] Work Phone: 05-04-2017 13:10-0500 Body Temperature 98.29 [degF] Physician No [facility] Work Phone: 05-04-2017 13:10-0500 BP Diastolic 77 mm[Hg] Physician No [facility] Work Phone: 05-04-2017 13:10-0500 BP Systolic 121 mm[Hg] Physician No [facility] Work Phone: 05-04-2017 13:10-0500 Pulse (Heart Rate) 104 /min Physician No [facility] Work Phone: 05-04-2017 13:10-0500 Pulse Oximetry 96 % Physician No [facility] Work Phone: 05-04-2017 11:55-0500 Respiratory Rate 14 /min Physician No [facility] Work Phone: 04-13-2017 16:00-0500 Body Temperature 98.01 [degF] Physician No [facility] Work Phone: 04-13-2017 16:00-0500 BP Diastolic 77 mm[Hg] Physician No [facility] Work Phone: 04-13-2017 16:00-0500 BP Systolic 137 mm[Hg] Physician No [facility] Work Phone: 04-13-2017 16:00-0500 Pulse (Heart Rate) 115 /min Physician No [facility] Work Phone: 04-13-2017 16:00-0500 Pulse Oximetry 96 % Physician Mercedes [facility] Work Phone: 04-13-2017 16:00-0500 Respiratory Rate 16 /min Physician Mercedes [facility] Work Phone: 02-13-2017 09:07-0400 BMI (Body Mass Index) 21.8 kg/m2 Willard Epperson [facility] Work Phone: 02-13-2017 09:07-0400 BP Diastolic 81 mm[Hg] Willard Epperson [facility] Work Phone: 02-13-2017 09:07-0400 BP Systolic 145 mm[Hg] Willard Epperson [facility] Work Phone: 02-13-2017 09:07-0400 Height 162.6 cm Willard Epperson [facility] Work Phone: 02-13-2017 09:07-0400 Pulse (Heart Rate) 73 /min Willard Epperson [facility] Work Phone: 02-13-2017 09:07-0400 Weight 57.61 kg Willard Zhou [facility] Work Phone: Encounters Encounter Date Encounter Type Care Provider Facility Start: 06-23-2022 End: 06-23-2022 Telemedicine consultation with patient Willard Epperson MD Work Phone: [facility] Procedures Date Procedure [...] 10-01-2028 Screening for malignant neoplasm of colon [facility] Start: 10-02-2023 Colonoscopy COLONOSCOPY [facility] Start: 10-02-2023 COLORECTAL CANCER SCREENING COLORECTAL CANCER SCREENING [facility] Start: 02-08-2022 Tetanus vaccination [facility] Start: 02-08-2022 Urine microalbumin profile DTAP,TDAP,TD (2 - Td or Tdap) [facility] Start: 02-03-2022 Influenza vaccination [facility] Start: 09-28-2021 End: 09-28-2021 ambulatory [facility] Start: 09-28-2021 End: 09-28-2021 Patient encounter procedure [facility] Start: 09-27-2021 End: 09-27-2021 Patient encounter procedure [facility] MRI Start: 04-23-2021 COVID-19 Vaccine (3 - Booster for Pfizer series) COVID-19 Vaccine (3 - Booster for Pfizer series) [facility] Start: 04-16-2021 End: 04-16-2021 ambulatory 04/16/2021 Infusion/Injection Infusion Therapy [facility] Start: 04-09-2021 End: 04-09-2021 ambulatory 04/09/2021 Infusion/Injection Infusion Therapy [facility] Start: 04-09-2021 End: 04-09-2021 Patient encounter procedure 04/09/2021 Office Visit Neurology Willard Epperson MD [address] [place] [id number] [facility] Start: 03-23-2021 COVID-19 Vaccine (3 - Booster for Pfizer series) COVID-19 Vaccine (3 - Booster for Pfizer series) [facility] Start: 03-10-2021 Screening for malignant neoplasm of breast Mammogram [facility] Start: 03-10-2021 Screening mammography Mammogram [facility] Start: 03-05-2021 End: 10-19-2021 MR Brain With And Without Contrast MR Brain With And Without Contrast Imaging Routine Multiple sclerosis, primary progressive (HCC) Expected: 03/05/2021, Expires: 10/19/2021 [facility] Immunizations Immunization Date Immunization Notes Care Provider Fa cility 10-21-2020 COVID-19 vaccine, ag e 12+ yr (PFIZER-BIONTECH - PURPLE TOP) Joan Welch MD Work Phone: [facility] Work Phone: 09-28-2020 COVID-19 vaccine, ag e 12+ yr (PFIZER-BIONTECH - PURPLE TOP) Joan Welch MD Work Phone: [facility] Work Phone: 02-09-2017 AFLURIA QUAD 18, PF, syringe; Translations: [Afluria Quad (Pf) 60 McG/0.5 Ml Intramuscular Syringe] Jeanne Hilario [facility] Work Phone: 02-08-2016 influenza, seasonal, injectable Joan Welch MD Work Phone: [facility] 02-22-2013 influenza virus vaccine, unspecified formulation Joan Welch MD Work Phone: [facility] 03-03-2012 influenza virus vaccine, unspecified formulation Joan Welch MD Work Phone: [facility] 02-09-2012 tetanus toxoid, redu deniz diphtheria toxoid, and acellular pertussis vaccine, adsorbed Joan Welch MD Work Phone: [facility] 04-07-2010 pneumococcal polysaccharide vaccine, 23 valent Joan Welch MD Work Phone: [facility] 03-25-2008 influenza virus vaccine, unspecified formulation Joan Welch MD Work Phone: [facility] 04-03-2007 influenza virus vaccine, unspecified formulation Joan Welch MD Work Phone: [facility] Work Phone: 04-17-2006 influenza virus vaccine, unspecified formulation Joan Welch MD Work Phone: [facility] 05-17-2005 influenza virus vaccine, unspecified formulation Joan Welch MD Work Phone: [facility] Work Phone: Payers Date Payer Category Payer Unknown xxxxxxxxxxxx [id number] 2013 Unknown [id number] 2013 Unknown [id number] 2013 Unknown [employer] [id number] 2013-Present [phone] [address] [place] [address] [id number] 1960 Unknown [id number] 1960 Unknown [id number] 1960 Unknown [id number] 1960 Unknown [id number] 1960 Unknown [id number] 1958 Unknown [id number] 1958 Unknown [id number] 1960 Unknown [id number] 1960 Unknown [id number] 1960 Unknown [id number] 1960 Unknown [id number] Social History Date Type Detail Facility Start: 04-13-2017 End: 10-11-2017 Tobacco smoking status MAIS Never smoker [facility] Work Phone: Start: 1960 Sex Assigned At Not on file [facility] Work Phone: Start: 04-16-2019 End: 07-14-2021 Alcohol intake Current non-drinker of alcohol (finding) [facility] Exposure to SARS-CoV -2 (event) Not sure [facility] Start: 04-13-2017 End: 10-18-2019 Tobacco use and exposure Never used [facility] Clinical Notes 10-16-2020 to 11-09-2022 Willard Epperson MD - 06/23/2022 11:31 AM ESTPatient InstructionsPatient InstructionsDatre Epperson MD - 04/09/2021 8:00 AM EDTSmitWillard cooper MD - 10/29/2020 10:03 AM EDT Note Date & Type Note Facility 11-09-2022 Note Patient Outreach (IN TMMN) BRITNEY PERAZA ([id number]) 1960 F TXT Date Time Provider Department [...] for screening mammogram for breast cancer [Z12.31] Order(s):[facility] SCREENING [[id number]] Order #: [id number] FUTURE Prescriptions as of 11/14/2022 - atenolol [...] Encounter Status:Closed by KODAK PRODUSER on 11/14/22 [facility] 06-23-2022 History of Present illness Narrative Left voicemail message with patient. Was not sure if she wanted to continue to follow-up in clinic. Would be happy to see her back, even if she is no longer on disease modifying therapy to work on symptomatic management. Provided with the number for the front end architect if she is interested in rescheduling. documented in this encounter [facility] 12-01-2021 Note Patient Outreach (IN TMMN) BRITNEY PERAZA ([id number]) 1960 F TXT Date Time Provider Department [...] for screening mammogram for breast cancer [Z12.31] Order(s):[facility] SCREENING [[id number]] Order #: [id number] FUTURE Prescriptions as of 12/06/2021 - atenolol [...] sclerosis) (HCC) [G35] 01/14/2019 Encounter Status:Closed by Screen Tonic, PRODUSER on 12/06/21 [facility] 04-09-2021 Instructions Zahra Pratt RN - 04/09/2021 [...] the medicines you take, including prescription and ezkm-jsi-pkenybl medicines. vitamins, and herbal supplements. How will [...] may report side effects to FDA at 4-441-VZA-1471. General information about the safe and effective [...] sodium acetate trihydrate, trehalose dihydrate. Manufactured by: [employer] A Member of [employer], [address] [place] [address], [place] [address] [place] License No. [id number] For more information, go to [email or web address] or call . This Medication Guide has been approved by the U.S. Food and Drug Administration documented in this encounter [facility] 04-09-2021 Instructions Willard Epperson MD - 04/09/2021 8:16 AM EDT Central [id number] documented in this encounter [facility] 04-09-2021 History of Present illness Narrative Images from the original note were not included. Patient Name: Britney Peraza : 1960 MR #: [id number] Other Physicians: Jaon Welch MD (Primary Care Physician) 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 I recommend continuing Vitamin D3 56292 IU once every other daily. Goal levels [...] me in 6 months. Willard Epperson MD [facility] Physicians Neuroimmunology/ Neuroinfectious Disease ([place], and [place] [facility]) General Neurology ([place]) ([place]) [place] Address: [address] [place] [address], [address] Address [address] [facility], [address] [facility] [address] [place], [place] [id number] Chief Complaint: Neuro-immunology clinic follow up INTERIM HISTORY Britney Peraza is here for follow up. Last was seen 10/23. Accompanied by her sister today. She has her infusion scheduled later this morning. No new symptoms to report, though her sister feels she minimizes worsening gait impairment. We had placed orders for [facility]. They had been providing her with a [...] Swelling Naproxen Sodium Hives, Itching and Swelling Tkviinhotavw-Cep-Uplzjlkz tachycardia tachycardia Penicillins Hives Sulfa (Sulfonamide Antibiotics) Hives Tetracycline Hives Current Outpatient Medications Medication Sig Dispense Refill acetaminophen (TYLENOL) 500 MG tablet Take 500 mg by mouth every 6 (six) hours as needed for pain. AFLURIA QUAD [id number], PF, syringe ADMINISTERED AT DDM 0 atenolol [...] documentation: 40 minutes. documented in this encounter [facility] 01-08-2021 Miscellaneous Notes Changed pharmacies documented in this encounter [facility] 10-29-2020 History of Present illness Narrative Are we able to fax this order for home health to [facility] in [facility]? Contact is: Toll Free [phone] Also, can we reschedule her Apr visit [...] her regarding this? documented in this encounter [facility] 10-16-2020 History of Present illness Narrative Images from the original note were not included. Patient Name: Britney Peraza : 1960 MR #: [id number] Other Physicians: Joan Welch MD (Primary Care Physician) 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 Goal levels of Vitamin [...] proximity to her next infusion. [facility] Willard Epperson MD [facility] Neu[facility] Physicians Neuroimmunology/ Neuroinfectious Disease ([place], and [place] [facility]) General Neurology ([place] and [place]) ([place]) [place] Address: [address] [place] [address], [address] Address [address] [facility], [address] [place] [address] [facility] [address] [place] [address] Chief Complaint: Neuro-immunology clinic follow up INTERIM [...] Swelling Naproxen Sodium Hives, Itching and Swelling Tngzfgbipvfi-Ezd-Bqkigzgd tachycardia tachycardia Penicillins Hives Sulfa (Sulfonamide Antibiotics) Hives Tetracycline Hives Current Outpatient Medications Medication Sig Dispense Refill acetaminophen (TYLENOL) 500 MG tablet Take 500 mg by mouth every 6 (six) hours as needed for pain. AFLURIA QUAD [id number], PF, syringe ADMINISTERED AT DDM 0 atenolol [...] of T2/FLAIR signal abnormalities compatible with demyelination. [employer] Workstation ID: [id number] Results for orders placed [...] air cells are clear. Nasopharynx is normal. Residential Field Manager spaces are normal. Orbital contents are normal. [...] or enhancing lesions. 3. Stable brain atrophy. [facility] Workstation ID: [id number] Total time spent, including over 50% or more spent face to face with the patient discussing the risk and benefits of any medications, reviewing available data and counseling patient on treatment plan was 30 minutes. The aforementioned impression & plan were discussed with the patient. documented in this encounter [facility] 10-16-2020 Instructions LiangLata RN - 10/16/2020 [...] Pt voiced understanding. documented in this encounter [facility] 10-16-2020 Instructions Lata Liang RN - [...] Pt voiced understanding. documented in this encounter [facility] 10-16-2020 History of Present illness Narrative Labs obtained with insertion of PIV, which will be used for the infusion today. Specimens labeled per policy and taken to the lab in the [facility] for processing. documented in this encounter [facility] 10-16-2020 History of Present illness Narrative Labs obtained with insertion of PIV, which will be used for the infusion today. Specimens labeled per policy and taken to the lab in the [facility] for processing. documented in this encounter [facility] Multiple [facility], primary progressive (HCC)- Primary [facility] Diagnosis Multiple sclerosis, primary progressive (HCC)- Primary Vitamin D deficiency Paresis of lower extremity (HCC) Unspecified paralysis History of gait disorder [facility] Multiple [facility], primary progressive (HCC)- Primary [facility] Diagnosis Vitamin D deficiency [facility] Diagnosis Multiple sclerosis, primary progressive (HCC)- Primary Multiple sclerosis (HCC) Multiple sclerosis [facility] Diagnosis Multiple sclerosis, primary progressive (HCC)- Primary Vitamin D deficiency Spasticity Abnormal involuntary movements Ataxia Lack of coordination Cognitive impairment Unspecified persistent mental disorders due to conditions classified elsewhere [facility] Diagnosis Encounter for screening mammogram for breast cancer documented in this encounter [facility] note* Diagnosis Multiple sclerosis, primary progressive (HCC)- Primary [facility] Diagnostic Procedure Only (Routine) - Pending Review Specialty Diagnoses / Procedures Referred By Stormac t Referred To Contact [facility] Diagnoses Encounter for screening mammogram for breast cancer Procedures HUBERT SCREENING SCREENING MAMMOGRAPHY BI 2-VIEW BREAST INC Joan Palomino MD [address] [place] [address] [facility] [address] [place] [address] Referral ID Status Reason Start Date Expiration Date Visits Requested Visits Authorized [id number] Pending Review Auto-Generat ed Referral 12/01/2021 12/31/2022 1 1 [facility] Instructions * Patient Instructions - Kristina [...] would require purchasing a compounded version from [employer]. One source to purchase this is [email or web address]/[email or web address]-kfxeco-[email or web address]-xsn-90-count/ Physical Therapy: 1. Recommend return to PT [...] the medicines you take, including prescription and hong-inv-wyobxud medicines, vitamins_._and herbal supplements. _ _ _ [...] may report side effects to FDA at 5-238-VPD-7827. General Information about the safe and effective [...] sodium acetate trihydrate, trehalose dihydrate. Manufactured by: [employer] A Member of the [employer], [address] [place] [address], [place] [address] [place] License No.[id number] For more lnformation, go to www.[employer] or_call 7-102-837-38BZ. This Medication Guide has been approved by [...] And Without Contrast Willard Epperson MD [address] [place] [address] Status Reason Specialty Diagnoses / Procedures Referred By Contact Referred To Contact Authorized Specialty Services Required/Patien t's Best Interest Physical Therapy Diagnoses Multiple sclerosis (HCC) Willard Epperson MD [address] [place] [address] Status Reason Specialty Diagnoses / Procedures Referre d By Contact Referred To Contact Closed Radiology Diagnoses Multiple sclerosis (HCC) Procedures MR Brain Without Contrast Willard Epperson MD [address] [place] [address] Status Reason Specialty Diagnoses / Procedures Referred By Contact Referred To Contact Closed Specialty Services Required/Patien t's Best Interest Wireless Watcher Diagnoses Multiple sclerosis (HCC) Willard Epperson MD [address] [place] [address] Dory Velez LISW-S Status Reason Specialty Diagnoses / Procedures Referred By Contact Referred To Contact New Request Radiology Diagnoses Multiple sclerosis, primary progressive (HCC) Procedures MR Thoracic Spine With And Without Contrast Willard Epperson MD [address] [place] [address] Status Reason Specialty Diagnoses / Procedures Referred By Contact Referred To Contact New Request Radiology Diagnoses Multiple sclerosis, primary progressive (HCC) Procedures MR Cervical Spine With And Without Contrast Willard Epperson MD [address] [facility] [address] [place] [address] Status Reason Specialty Diagnoses / Procedures Referred By Contact Referred To Contact New Request Radiology Diagnoses Multiple sclerosis, primary progressive (HCC) Procedures MR Brain With And Without Contrast Willard Epperson MD [facility] [address] [place] [address] Status Reason Specialty Diagnoses / Procedures Referred By Contact Referred To Contact Authorized Specialty Services Required/Patie nt's Best Interest Home Health Services Diagnoses Multiple sclerosis, primary progressive (HCC) Willard Epperson MD [facility] [address] [place] [address] Specialty Diagnoses / Procedures Referred By Contac t Referred To Contact Wireless Watcher Diagnoses Multiple sclerosis, primary progressive (HCC) Willard Epperson MD [facility] [address] [place] [address] Dory Velez LISW-S Referral ID Status Reason Start Date Expiration Date V isits Requested Visits Authorized [id number] Closed Specialty Services Required/One[place] ent's Best Interest 04/09/2021 04/09/2022 1 1 Advance Directives No Advanced Directives Records FoundDocuments on File Type Date Recorded Patient Principal Bioinformatics Specialist Expl anation Advance Directives and Livin g Will 04/12/2019 8:19 AM Documents on File Type Date Recorded Patient Principal Bioinformatics Specialist Expl anation Advance Directives and Livin g Will 04/12/2019 8:19 AM Documents on File Type Date Recorded Patient Principal Bioinformatics Specialist Expl anation Advance Directives and Livin g Will 10/18/2019 6:47 AM Documents on File Type Date Recorded Patient Principal Bioinformatics Specialist Expl anation Advance Directives and Livin g Will 10/18/2019 6:47 AM Documents on File Type Date Recorded Patient Principal Bioinformatics Specialist Expl anation Advance Directives and Livin g Will 04/17/2020 6:47 AM Documents on File Type Date Recorded Patient Principal Bioinformatics Specialist Expl anation Advance Directives and Livin g Will 04/17/2020 6:47 AM Documents on File Type Date Recorded Patient Principal Bioinformatics Specialist Expl anation Advance Directives and Livin g Will 10/16/2020 6:47 AM Documents on File Type Date Recorded Patient Principal Bioinformatics Specialist Expl anation Advance Directives and Livin g Will 10/16/2020 6:47 AM Documents on File Type Date Recorded Patient Principal Bioinformatics Specialist Expl anation Advance Directives and Livin g Will 04/09/2021 6:47 AM Documents on File Type Date Recorded Patient Principal Bioinformatics Specialist Expl anation Advance Directives and Livin g Will 04/09/2021 6:47 AM History of Present Illness * Jeanne Hilario CMA - 02/13/2017 1:04 PM EDT Faxed [facility] ([phone]) a physical therapy order along with face [...] Epperson MD - 04/16/2019 8:02 PM EST [facility] Multiple Sclerosis Center- [facility] Follow Up Note 04/12/2019 IMPRESSIONS Britney Peraza [...] trials and in our experience here at [facility], most infusion related reactions are mild [...] visit. 3. Please sign up for the Telecardia patient portal. [employer] provides assess to your medical record and test results, allows you to communicate with your care providers, and allows you to complete patient questionnaires prior to each clinic visit. 4. When your testing is completed, your MS care team will review all results and contact you if a finding requires follow up before your next visit. Otherwisee, we will discuss your test results zxiw-ly-hrrn at your next clinic visit. Many of your testing results, however, can be reviewed online through [employer]. MS Disease Summary Primary Neurological Diagnosis and [...] hours as needed for pain. AFLURIA QUAD [id number], PF, syringe ADMINISTERED AT [facility] 0 atenolol [...] Swelling Naproxen Sodium Hives, Itching and Swelling Pxlspzpaboob-Cdg-Ybhfzogp tachycardia tachycardia Penicillins Hives Sulfa (Sulfonamide Antibiotics) [...] file Gets together: Not on file Attends christian service: Not on file Active member of [...] of links to MS educational sources online: [facility] Multiple Sclerosis Center (www.[facility].com/MS) Multiple Sclerosis Association of [place] (www.mymsaa.org) Multiple Sclerosis Foundation (www.msfocus.org) Can do Multiple Sclerosis ( www.mscando.org ) National Multiple Sclerosis Society (www.nationalmssociety.org) Twitter: @[facility] Facebook: [facility] Instagram: [employer] 5. For information on the [facility] MS Center's clinical trial program contact Sari Bolden [facility]. 6. MS Groups take place at [facility] at [facility]: [address] [place] [address]. Parking vouchers will be provided. Life with [...] the Monday of the month from 5:30-7pm. Caregiver/Roofer Apprentice Support Group: offers opportunities to connect with [...] experienced yoga practitioners. Pre- registration is required: [phone] 7. Education regarding disease modifying therapy discussed [...] Willard Epperson MD Neuroimmunology and Neuroinfectious Disease [facility] Multiple Sclerosis Center at [facility] and [place] [facility] ([place] fax) [place] Address: [address] [place] [address], [address] [place] [address] [place] Address [address] [facility], [address] [place] [address] documented in this encounter* Jeanne Hilario CMA - 04/18/2019 8:25 AM EST Faxed [facility] ([phone]) a physical therapy referral along with face sheet and Insurance card to call patient to schedule. documented in this encounter* Willard Epperson MD - 10/18/2019 10:43 AM EDT Telephone Visit Via Phone Call [facility] [address] [facility], NEUROSCIENCE [address] [facility] [phone] Telephone Visit [facility] 10/18/2019 Willard Epperson MD Provider Location: [facility] Patient Location Returned Goods Receiving Clerk: None Patient Location: Patient's Home Patient: Britney [...] there are inherent diagnostic limitations compared to krgt-ji-riqo evaluations. We elected toproceed with the telephone visit telemedicine consultation. HPI Today she is currently at the [facility] receiving her infusion. She has been [...] hours as needed for pain. AFLURIA QUAD [id number], PF, SYRINGE ADMINISTERED AT [facility] ATENOLOL (TENORMIN) [...] Continue with vitamin D 5000 units daily rqdb-psd-rlutouu Continue Ampyra 10 mg twice daily and [...] EDT Faxed new Physical Therapy order to [facility] ([phone]) to call and schedule in home visits [...] her biggest problem. Patient lives alone in [place], [place] and sister lives in [place]. Falls in past 6 months: > 6, [...] as her aide is only allowed to knot picker cloth groceries, so pt does not have easy access to food/shopping. Sandi lives in [place]. In reviewing past and present in-home supports, [...] info provided: Aging and Disability Resource Center ([facility]) at - Re: PASSPORT program. Advance Directives Packet * Willard Epperson MD - 04/17/2020 10:30 AM EST Patient Name: Britney Peraza : 1960 MR #: [id number] Other Physicians: Joan Welch MD (Primary Care Physician) [facility] Multiple Sclerosis Center Follow-up Visit 04/17/2020 IMPRESSION: [...] me in 3 months. 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 Confirms about 12 calls with [employer] over the last year. Would benefit significantly [...] Swelling Naproxen Sodium Hives, Itching and Swelling Kmrqetqscmls-Gqo-Pckkscot tachycardia tachycardia Penicillins Hives Sulfa (Sulfonamide Antibiotics) Hives Tetracycline Hives Current Outpatient Medications Medication Sig Dispense Refill acetaminophen (TYLENOL) 500 MG tablet Take 500 mg by mouth every 6 (six) hours as needed for pain. AFLURIA QUAD [id number], PF, syringe ADMINISTERED AT [facility] 0 atenolol (TENORMIN) 25 MG tablet [...] EST Faxed a physical therapy order to [facility] ([phone]) along with face sheet and Insurance card to call and schedule with patient. documented in this encounter* Willard Epperson MD - 09/28/2018 3:49 PM EDT [facility] Multiple Sclerosis Center at [facility] Clinic Follow Up Note 09/28/2018 IMPRESSIONS [...] trials and in our experience here at [facility], most infusion related reactions are mild [...] visit. 3. Please sign up for the Telecardia patient portal. [employer] provides assess to your medical record and test results, allows you to communicate with your care providers, and allows you to complete patient questionnaires prior to each clinic visit. 4. When your testing is completed, your MS care team will review all results and contact you if a finding requires follow up before your next visit. Otherwisee, we will discuss your test results yqzq-ts-bjen at your next clinic visit. Many of your testing results, however, can be reviewed online through Pro[employer]. DISEASE SUMMARY Primary Neurological Diagnosis and Date [...] is also noticeable by her sister and dhtsusz-ps-fjd with regards toambulation. There have been no [...] hours as needed for pain. AFLURIA QUAD [id number], PF, syringe ADMINISTERED AT [facility] 0 atenolol [...] Swelling Naproxen Sodium Hives, Itching and Swelling Eublrkrhetlr-Vgp-Iwjhycyz tachycardia tachycardia Penicillins Hives Sulfa (Sulfonamide Antibiotics) [...] Willard Epperson MD Neuroimmunology and Neuroinfectious Disease [facility] Multiple Sclerosis Center at [facility] and [place] [facility] ([place] fax) [place] Address: [address] [place] [address], [address] Address [address] [place] [address], [address] [place] [address] documented in this encounter Summary Purpose Family History No Family History Records FoundNo Family History Records FoundNo Family History Records Found Additional Source Comments Addendum Note - Willard Epperson MD - 01/23/2018 11:17 AM EDTQuick Note - Elif Augustni, TECHNOLOGIST - 10/18/2019 7:15 AM EDT Miscellaneous Notes (unrecog nized section and content) Addended by: WILLARD EPPERSON on: 01/23/2018 11:17 AM Modules accepted: Orders in this encounter This technologist ([id number]) and ([id number]) wore surgical masks/gloves during MRI exam. Patient wore surgical mask. documented in this encounter Reason for Visit (unrecogniz ed section and content) Specialty Diagnoses / Procedures Referred By Gaston espana Referred To Contact Infusion Therapy Diagnoses Multiple sclerosis, primary progressive (HCC) Procedures IA INJECTION, OCRELIZUMAB, 1 MG Willard Epperson MD [address] [facility] [address] [place] [address] [facility] Ms Infusion [address] [place] [address] Referral ID Status Reason Start Date Expiration Date V isits Requested Visits Authorized [id number] Pending Review 03/31/2021 05/30/2021 1 1 Status Reason Specialty Diagnoses / Procedures Referre d By Contact Referred To Contact Closed Radiology Diagnoses Multiple sclerosis (HCC) Procedures MR Brain With And Without Contrast Willard Epperson MD [address] [facility] [address] [place] [address] Reason Comments Multiple Sclerosis 6 month Ocrevus Status Reason Specialty Diagnoses / Procedures Referred By Contact Referred To Contact Closed Infusion Therapy Diagnoses Multiple sclerosis Procedures IA INJECTION, OCRELIZUMAB, 1 MG Willard Epperson MD [address] [facility] [address] [place] [address] [facility] Infusion [address] [place] [address] Reason Comments Multiple Sclerosis Status Reason Specialty Diagnoses / Procedures Referred By Contact Referred To Contact Closed Infusion Therapy Diagnoses Multiple sclerosis, primary progressive (HCC) Procedures IA INJECTION, OCRELIZUMAB, 1 MG Willard Epperson MD [address] [place] [address] [facility] Infusion [address] [place] [address] Status Reason Specialty Diagnoses / Procedures Referre d By Contact Referred To Contact Closed Radiology Diagnoses Multiple sclerosis (HCC) Procedures MR Brain Without Contrast Willard Epperson MD [address] [facility] [address] [place] [address] Status Reason Specialty Diagnoses / Procedures Referred By Contact Referred To Contact Authorized Infusion Therapy Diagnoses Multiple sclerosis Ocrevus 6 months Procedures IA INJECTION, OCRELIZUMAB, 1 MG CHEMO Willard Epperson MD [address] [facility] [address] [place] [address] [facility] Infusion [address] [place] [address] Status Reason Specialty Diagnoses / Procedures Referred By Contact Referred To Contact Canceled Specialty Services Required/Patie nt's Best Interest Home Health Agency / Home Health Services Diagnoses Multiple sclerosis, primary progressive (HCC) Willard Epperson MD [address] [facility] [address] [place] [address] [address] Status Reason Specialty Diagnoses / Procedures Referred By Contact Referred To Contact Authorized Infusion Therapy Diagnoses Multiple sclerosis, primary progressive (HCC) Procedures IA INJECTION, OCRELIZUMAB, 1 MG Willard Epperson MD [address] [facility] [address] [place] [address] [facility] Ms Infusion [address] [place] [address] Reason Comments Multiple Sclerosis Ocrevus 6mo, 2hr Status Reason Specialty Diagnoses / Procedures Referred By Contact Referred To Contact Closed Infusion Therapy Diagnoses Multiple sclerosis Ocrevus 6 months Procedures IA INJECTION, OCRELIZUMAB, 1 MG CHEMO Willard Epperson MD [address] [facility] [address] [place] [address] [facility] Ms Infusion [address] [facility] [place] [address] Reason Onset Date Comments Medication Refill 01/08/2021 Reason Comments Multiple Sclerosis Care Teams (unrecognized sec tion and content) Dinkey Skinner Relationship Specialty Start Date End Date Joan Welch MD [address] [facility] [address] [place] [address] PCP - General Family Medicine 09/28/18 Dinkey Skinner Relationship Specialty Start Date End Date Joan Welch MD [address] [id number] PCP - General Family Medicine 09/28/18 Dinkey Skinner Relationship Specialty Start Date End Date Joan Welch MD [address] [phone] PCP - General Family Medicine 09/28/18 Dinkey Skinner Relationship Specialty Start Date End Date Joan Welch MD [address] [place] [address] [phone] PCP - General Family Practice 05/11/16 Dinkey Skinner Relationship Specialty Start Date End Date Joan Welch MD [address] [place] [address] [phone] PCP - General Family Medicine 09/28/18 INFORMATION SOURCE (unrecogn ized section and content) DATE CREATED AUTHOR AUTHOR'S ORGANIZ ATION 01/15/2022 [facility] DATE CREATED AUTHOR AUTHOR'S ORGANIZ ATION 11/16/2022 [facility] Source Comments (unrecognize d section and content) In the event this informatio n is protected by the Federal Confidentiality of Alcohol and Drug Abuse Patient Records regulations: The Federal rules restrict any use of the information to criminally investigate or prosecute any alcohol or drug abuse patient.[facility] FOR RECORDS PERTAINING TO PATIENTS WHO [...] BE BASED ON THE PRIMARY CLINICAL RECORDS. [employer] [facility]. provides no warranty or guarantee of the accuracy or completeness of information in this document.
[2023-08-08 08:26] LABS: Absolute Lymphocyte Count 1.44 X10^3/uL (0.83-4.51); Absolute Neutrophil Count 8.1 X10^3/uL (2.0-7.7); Basophil# 0.12 X10^3/uL; Basophil% 1.1 % (0-1); Eosinophil# 0.35 X10^3/uL; Eosinophils% 3.1 % (0-5); Hematocrit 46.7 % (37-47); Hemoglobin 14.3 g/dL (12.0-15.0); Lymphocyte # 1.44 X10^3/ul (0.83-4.51); Lymphocyte % 12.7 % (19-41); Mean Corp Hgb Conc 30.6 g/dL (32-36); Mean Corpuscular Hgb 27.1 pg (27.0-32.0); Mean Corpuscular Volume 88.6 fL (81-99); Mean Platelet Vol. 9.3 fl (6.2-12.0); Monocyte# 1.18 X10^3/uL; Monocyte% 10.4 % (0-10); NRBC Flagged by Analyzer 0 % (0-5); Neutrophil # 8.14 X10^3/uL (2.7-7.7); Neutrophil % 71.8 % (47-70); Platelet Count 535 K/mm3 (150-450); RBC Distribution Width CV 14.8 % (11.6-14.6); RBC Distribution Width SD 47.9 fl (35.1-43.9); Red Blood Count 5.27 M/mm3 (4.2-5.4); White Blood Count 11.3 K/mm3 (4.4-11.0)
[2023-08-08 08:50] LABS: ALB/GLOB Ratio 0.9 RATIO (0.9-2.4); AST(SGOT) 31 U/L (15-37); Alanine Aminotransfer ALT/SGPT 36 U/L (13-56); Albumin, Serum 3.2 g/dL (3.2-5.0); Alkaline Phosphatase 93 U/L (45-117); Anion Gap 8 (5-15); BUN 20 mg/dL (7-18); Chloride 107 mmol/L (98-107); Creatinine, Serum 0.71 mg/dL (0.55-1.02); EST Glomerular Filtration Rate 87 mL/min (>60); Est Glom Filt Rate - Afr Amer 105 mL/min (>60); Globulin 3.7 g/dL (2.2-4.2); Glucose 153 mg/dL (74-106); Potassium 3.4 mmol/L (3.5-5.1); Protein, Total 6.9 g/dL (6.4-8.2); Sodium Level 141 mmol/L (136-145)
== END ==
LOC: OLS.WHLEAS 05:00
PROVIDERS: PCP Family Medicine; Visit Provider Internal Medicine
DX: N17.9 Acute kidney failure, unspecified (principal)
CPT/HCPCS: 36415; 80053; 85025

== ENCOUNTER → 2023-08-10 | Outpatient (REF) | payer MEDICARE, MEDICAID, SELFPAY | LOC: OLS.WHLEAS 05:00 | PROVIDERS: PCP Family Medicine; Visit Provider Internal Medicine | DX: E87.6 Hypokalemia (principal) | CPT/HCPCS: 36415; 84132 ==

== ENCOUNTER → 2023-09-05 | Outpatient (REF) | payer MEDICARE, MEDICAID, SELFPAY ==
[2023-09-05 10:45] LABS: Hemoglobin A1c 6.7 % (3.8-5.6)
== END ==
LOC: OLS.WHLEAS 05:00
PROVIDERS: PCP Family Medicine; Visit Provider Internal Medicine
DX: E11.9 Type 2 diabetes mellitus without complications (principal)
CPT/HCPCS: 36415; 83036

== ENCOUNTER → 2023-10-24 | Outpatient (REF) | payer MEDICARE, MEDICAID, SELFPAY ==
[2023-10-24 08:44] LABS: Protein, Urine (Random) 136.9 mg/dL (<11.9); Protein:Creat Ratio 1190 mg/g CRE (0-200)
== END ==
LOC: OLS.WHLEAS 05:00
PROVIDERS: PCP Family Medicine; Visit Provider Internal Medicine
DX: E11.9 Type 2 diabetes mellitus without complications (principal); G35 Multiple sclerosis; R39.9 Unspecified symptoms and signs involving the genitourinary system
CPT/HCPCS: 82570; 84156

== ENCOUNTER → 2023-11-07 | Outpatient (REF) | payer MEDICARE, MEDICAID, SELFPAY ==
[2023-11-07 08:32] LABS: Absolute Lymphocyte Count 1.54 X10^3/uL (0.83-4.51); Absolute Neutrophil Count 7.5 X10^3/uL (2.0-7.7); Basophil# 0.13 X10^3/uL; Basophil% 1.2 % (0-1); Eosinophil# 0.28 X10^3/uL; Eosinophils% 2.6 % (0-5); Hematocrit 46.7 % (37-47); Hemoglobin 13.7 g/dL (12.0-15.0); Lymphocyte # 1.54 X10^3/ul (0.83-4.51); Lymphocyte % 14.2 % (19-41); Mean Corp Hgb Conc 29.3 g/dL (32-36); Mean Corpuscular Hgb 26.9 pg (27.0-32.0); Mean Corpuscular Volume 91.6 fL (81-99); Mean Platelet Vol. 9.6 fl (6.2-12.0); Monocyte# 1.23 X10^3/uL; Monocyte% 11.4 % (0-10); NRBC Flagged by Analyzer 0 % (0-5); Neutrophil # 7.49 X10^3/uL (2.7-7.7); Neutrophil % 69.2 % (47-70); Platelet Count 573 K/mm3 (150-450); RBC Distribution Width CV 15.5 % (11.6-14.6); RBC Distribution Width SD 52.4 fl (35.1-43.9); White Blood Count 10.8 K/mm3 (4.4-11.0)
[2023-11-07 08:50] LABS: ALB/GLOB Ratio 0.7 RATIO (0.9-2.4); AST(SGOT) 27 U/L (15-37); Alanine Aminotransfer ALT/SGPT 28 U/L (13-56); Albumin, Serum 2.9 g/dL (3.2-5.0); Alkaline Phosphatase 98 U/L (45-117); Anion Gap 9 (5-15); BUN 26 mg/dL (7-18); BUN/Creat Ratio 32.1 RATIO (10-20); Calcium,Total 9.9 mg/dL (8.5-10.1); Chloride 105 mmol/L (98-107); Creatinine, Serum 0.81 mg/dL (0.55-1.02); EST Glomerular Filtration Rate 75 mL/min (>60); Est Glom Filt Rate - Afr Amer 91 mL/min (>60); Globulin 3.9 g/dL (2.2-4.2); Glucose 158 mg/dL (74-106); Potassium 4.3 mmol/L (3.5-5.1); Protein, Total 6.8 g/dL (6.4-8.2); Sodium Level 137 mmol/L (136-145)
== END ==
LOC: OLS.WHLEAS 05:00
PROVIDERS: PCP Family Medicine; Visit Provider Internal Medicine
DX: N17.9 Acute kidney failure, unspecified (principal)
CPT/HCPCS: 36415; 80053; 85025

== ENCOUNTER → 2023-12-05 | Outpatient (REF) | payer MEDICARE, MEDICAID, SELFPAY ==
[2023-12-05 08:31] LABS: Hemoglobin A1c 6.5 % (3.8-5.6)
== END ==
LOC: OLS.WHLEAS 05:00
PROVIDERS: PCP Family Medicine; Visit Provider Internal Medicine
DX: E11.9 Type 2 diabetes mellitus without complications (principal)
CPT/HCPCS: 36415; 83036

== ENCOUNTER → 2024-01-09 | Outpatient (REF) | payer MEDICARE, MEDICAID, SELFPAY ==
[2024-01-09 10:58] LABS: Cholesterol 191 mg/dL (200); High Density Lipoprotein 39 mg/dL; Triglycerides 360 mg/dL; Very Low Density Lipoprotein 72 mg/dL (5-40)
== END ==
LOC: OLS.WHLEAS 05:00
PROVIDERS: PCP Family Medicine; Visit Provider Internal Medicine
DX: E11.9 Type 2 diabetes mellitus without complications (principal); G35 Multiple sclerosis; I10 Essential (primary) hypertension; J96.11 Chronic respiratory failure with hypoxia
CPT/HCPCS: 36415; 80061

== ENCOUNTER → 2024-01-10 | Outpatient (REF) | payer MEDICARE, MEDICAID, SELFPAY ==
[2024-01-10 08:53] LABS: Anion Gap 9 (5-15); BUN 13 mg/dL (7-18); BUN/Creat Ratio 18.1 RATIO (10-20); Calcium,Total 9.5 mg/dL (8.5-10.1); Chloride 108 mmol/L (98-107); Creatinine, Serum 0.72 mg/dL (0.55-1.02); EST Glomerular Filtration Rate 87 mL/min (>60); Est Glom Filt Rate - Afr Amer 105 mL/min (>60); Glucose 151 mg/dL (74-106); Potassium 3.6 mmol/L (3.5-5.1); Sodium Level 141 mmol/L (136-145)
== END ==
LOC: OLS.WHLEAS 05:00
PROVIDERS: PCP Family Medicine; Visit Provider Internal Medicine
DX: I10 Essential (primary) hypertension (principal); G35 Multiple sclerosis
CPT/HCPCS: 36415; 80048

== ENCOUNTER → 2024-01-22 04:00 | Outpatient (REF) | payer MEDICARE, MEDICAID, SELFPAY ==
[2024-01-22 08:07] LABS: Anion Gap 7 (5-15); BUN 19 mg/dL (7-18); BUN/Creat Ratio 27.6 RATIO (10-20); Chloride 111 mmol/L (98-107); Creatinine, Serum 0.69 mg/dL (0.55-1.02); EST Glomerular Filtration Rate 91 mL/min (>60); Est Glom Filt Rate - Afr Amer 110 mL/min (>60); Glucose 153 mg/dL (74-106); Potassium 3.5 mmol/L (3.5-5.1); Sodium Level 141 mmol/L (136-145)
== END ==
LOC: OLS.WHLEAS 04:00
PROVIDERS: PCP Family Medicine; Visit Provider Internal Medicine
DX: E11.9 Type 2 diabetes mellitus without complications (principal)
CPT/HCPCS: 36415; 80048

== ENCOUNTER → 2024-02-06 05:00 | Outpatient (REF) | payer MEDICARE, MEDICAID, SELFPAY ==
[2024-02-06 08:48] LABS: Absolute Lymphocyte Count 1.28 X10^3/uL (0.83-4.51); Absolute Neutrophil Count 4.8 X10^3/uL (2.0-7.7); Basophil# 0.11 X10^3/uL; Basophil% 1.5 % (0-1); Eosinophil# 0.33 X10^3/uL; Eosinophils% 4.4 % (0-5); Hematocrit 42.5 % (37-47); Hemoglobin 12.6 g/dL (12.0-15.0); Lymphocyte # 1.28 X10^3/ul (0.83-4.51); Mean Corp Hgb Conc 29.6 g/dL (32-36); Mean Corpuscular Hgb 27.3 pg (27.0-32.0); Mean Platelet Vol. 9.2 fl (6.2-12.0); Monocyte# 0.95 X10^3/uL; Monocyte% 12.6 % (0-10); NRBC Flagged by Analyzer 0 % (0-5); Neutrophil # 4.77 X10^3/uL (2.7-7.7); Neutrophil % 63.2 % (47-70); Platelet Count 405 K/mm3 (150-450); Red Blood Count 4.62 M/mm3 (4.2-5.4); White Blood Count 7.5 K/mm3 (4.4-11.0)
[2024-02-06 09:42] LABS: ALB/GLOB Ratio 0.8 RATIO (0.9-2.4); AST(SGOT) 15 U/L (15-37); Alanine Aminotransfer ALT/SGPT 21 U/L (13-56); Albumin, Serum 2.8 g/dL (3.2-5.0); Alkaline Phosphatase 95 U/L (45-117); Anion Gap 8 (5-15); BUN 18 mg/dL (7-18); BUN/Creat Ratio 25.5 RATIO (10-20); Calcium,Total 9.7 mg/dL (8.5-10.1); Chloride 109 mmol/L (98-107); Creatinine, Serum 0.71 mg/dL (0.55-1.02); EST Glomerular Filtration Rate 88 mL/min (>60); Est Glom Filt Rate - Afr Amer 107 mL/min (>60); Globulin 3.5 g/dL (2.2-4.2); Glucose 168 mg/dL (74-106); Potassium 3.9 mmol/L (3.5-5.1); Protein, Total 6.3 g/dL (6.4-8.2); Sodium Level 141 mmol/L (136-145)
== END ==
LOC: OLS.WHLEAS 05:00
PROVIDERS: PCP Family Medicine; Visit Provider Internal Medicine
DX: N17.9 Acute kidney failure, unspecified (principal)
CPT/HCPCS: 36415; 80053; 85025

== ENCOUNTER → 2024-02-27 05:00 | Outpatient (REF) | payer MEDICARE, MEDICAID, SELFPAY ==
[2024-02-27 08:30] LABS: Anion Gap 6 (5-15); BUN 18 mg/dL (7-18); BUN/Creat Ratio 24.6 RATIO (10-20); Calcium,Total 10.6 mg/dL (8.5-10.1); Chloride 110 mmol/L (98-107); Creatinine, Serum 0.73 mg/dL (0.55-1.02); EST Glomerular Filtration Rate 84 mL/min (>60); Est Glom Filt Rate - Afr Amer 102 mL/min (>60); Glucose 169 mg/dL (74-106); Potassium 3.9 mmol/L (3.5-5.1); Sodium Level 140 mmol/L (136-145)
== END ==
LOC: OLS.WHLEAS 05:00
PROVIDERS: PCP Family Medicine; Visit Provider Internal Medicine
DX: I10 Essential (primary) hypertension (principal)
CPT/HCPCS: 36415; 80048

== ENCOUNTER → 2024-03-05 05:00 | Outpatient (REF) | payer MEDICARE, MEDICAID, SELFPAY ==
[2024-03-05 10:49] LABS: Hemoglobin A1c 6.6 % (3.8-5.6)
== END ==
LOC: OLS.WHLEAS 05:00
PROVIDERS: PCP Family Medicine; Visit Provider Internal Medicine
DX: E11.9 Type 2 diabetes mellitus without complications (principal)
CPT/HCPCS: 36415; 83036

== ENCOUNTER → 2024-03-07 05:00 | Outpatient (REF) | payer MEDICARE, MEDICAID, SELFPAY ==
[2024-03-07 08:49] LABS: Absolute Lymphocyte Count 1.24 X10^3/uL (0.83-4.51); Absolute Neutrophil Count 4.9 X10^3/uL (2.0-7.7); Basophil% 1.3 % (0-1); Eosinophils% 5.2 % (0-5); Hematocrit 42.9 % (37-47); Hemoglobin 12.6 g/dL (12.0-15.0); Lymphocyte # 1.24 X10^3/ul (0.83-4.51); Mean Corp Hgb Conc 29.4 g/dL (32-36); Mean Corpuscular Hgb 26.5 pg (27.0-32.0); Mean Corpuscular Volume 90.1 fL (81-99); Monocyte# 1.01 X10^3/uL; NRBC Flagged by Analyzer 0 % (0-5); Neutrophil # 4.93 X10^3/uL (2.7-7.7); Neutrophil % 63.6 % (47-70); Platelet Count 401 K/mm3 (150-450); RBC Distribution Width CV 13.6 % (11.6-14.6); RBC Distribution Width SD 45.6 fl (35.1-43.9); Red Blood Count 4.76 M/mm3 (4.2-5.4); White Blood Count 7.8 K/mm3 (4.4-11.0)
[2024-03-07 09:02] LABS: PTHIN 59.3 pg/mL (18.4-80.1)
[2024-03-07 10:29] LABS: ALB/GLOB Ratio 0.8 RATIO (0.9-2.4); AST(SGOT) 14 U/L (15-37); Alanine Aminotransfer ALT/SGPT 19 U/L (13-56); Albumin, Serum 2.8 g/dL (3.2-5.0); Alkaline Phosphatase 96 U/L (45-117); Anion Gap 6 (5-15); BUN 17 mg/dL (7-18); BUN/Creat Ratio 22.4 RATIO (10-20); Calcium,Total 9.5 mg/dL (8.5-10.1); Chloride 108 mmol/L (98-107); Creatinine, Serum 0.76 mg/dL (0.55-1.02); EST Glomerular Filtration Rate 81 mL/min (>60); Est Glom Filt Rate - Afr Amer 98 mL/min (>60); Globulin 3.4 g/dL (2.2-4.2); Glucose 212 mg/dL (74-106); Potassium 3.7 mmol/L (3.5-5.1); Protein, Total 6.2 g/dL (6.4-8.2); Sodium Level 138 mmol/L (136-145)
== END ==
LOC: OLS.WHLEAS 05:00
PROVIDERS: PCP Family Medicine; Visit Provider Internal Medicine
DX: E83.52 Hypercalcemia (principal)
CPT/HCPCS: 36415; 80053; 83970; 85025

== ENCOUNTER → 2024-04-09 | Outpatient (REF) | payer MEDICARE, SELFPAY ==
[2024-04-09 09:41] LABS: Cholesterol 110 mg/dL (200); High Density Lipoprotein 34 mg/dL; Triglycerides 280 mg/dL; Very Low Density Lipoprotein 56 mg/dL (5-40)
== END ==
LOC: OLS.WHLEAS 05:00
PROVIDERS: PCP Family Medicine; Visit Provider Internal Medicine
DX: E78.5 Hyperlipidemia, unspecified (principal)
CPT/HCPCS: 36415; 80061

== ENCOUNTER → 2024-04-15 | Outpatient (REF) | payer MEDICARE, SELFPAY ==
[2024-04-16 10:06] LABS: Microalbumin:Creatinine Ratio 149.1 mg/g CRE (<30 mg/g CRE)
== END ==
LOC: OLS.WHLEAS 18:00
PROVIDERS: PCP Family Medicine; Visit Provider Internal Medicine
DX: E11.9 Type 2 diabetes mellitus without complications (principal); G35 Multiple sclerosis; I10 Essential (primary) hypertension; E78.5 Hyperlipidemia, unspecified; D75.839 Thrombocytosis, unspecified
CPT/HCPCS: 82043; 82570

== ENCOUNTER → 2024-05-07 | Outpatient (REF) | payer MEDICARE, MEDICAID, SELFPAY ==
[2024-05-07 07:24] LABS: Absolute Lymphocyte Count 1.25 X10^3/uL (0.83-4.51); Absolute Neutrophil Count 7.4 X10^3/uL (2.0-7.7); Basophil# 0.14 X10^3/uL; Basophil% 1.3 % (0-1); Eosinophil# 0.48 X10^3/uL; Eosinophils% 4.6 % (0-5); Hematocrit 44.8 % (37-47); Hemoglobin 13.4 g/dL (12.0-15.0); Lymphocyte # 1.25 X10^3/ul (0.83-4.51); Mean Corp Hgb Conc 29.9 g/dL (32-36); Mean Corpuscular Volume 83.6 fL (81-99); Mean Platelet Vol. 9.1 fl (6.2-12.0); Monocyte# 1.04 X10^3/uL; NRBC Flagged by Analyzer 0 % (0-5); Neutrophil # 7.43 X10^3/uL (2.7-7.7); Neutrophil % 71.2 % (47-70); Platelet Count 346 K/mm3 (150-450); RBC Distribution Width CV 14.4 % (11.6-14.6); RBC Distribution Width SD 43.6 fl (35.1-43.9); Red Blood Count 5.36 M/mm3 (4.2-5.4); White Blood Count 10.4 K/mm3 (4.4-11.0)
[2024-05-07 07:45] LABS: ALB/GLOB Ratio 0.8 RATIO (0.9-2.4); AST(SGOT) 17 U/L (15-37); Alanine Aminotransfer ALT/SGPT 29 U/L (13-56); Alkaline Phosphatase 104 U/L (45-117); Anion Gap 6 (5-15); BUN 20 mg/dL (7-18); BUN/Creat Ratio 30.4 RATIO (10-20); Calcium,Total 9.6 mg/dL (8.5-10.1); Chloride 108 mmol/L (98-107); Creatinine, Serum 0.66 mg/dL (0.55-1.02); EST Glomerular Filtration Rate 96 mL/min (>60); Est Glom Filt Rate - Afr Amer 116 mL/min (>60); Globulin 3.6 g/dL (2.2-4.2); Glucose 171 mg/dL (74-106); Potassium 4.1 mmol/L (3.5-5.1); Protein, Total 6.6 g/dL (6.4-8.2); Sodium Level 137 mmol/L (136-145)
== END ==
LOC: OLS.WHLEAS 05:00
PROVIDERS: PCP Family Medicine; Visit Provider Internal Medicine
DX: N17.9 Acute kidney failure, unspecified (principal)
CPT/HCPCS: 36415; 80053; 85025

== ENCOUNTER → 2024-07-09 05:00 | Outpatient (REF) | payer MEDICARE, MEDICAID, SELFPAY ==
[2024-07-09 09:33] LABS: Cholesterol 143 mg/dL (200); High Density Lipoprotein 38 mg/dL; Triglycerides 321 mg/dL; Very Low Density Lipoprotein 64 mg/dL (5-40)
== END ==
LOC: OLS.WHLEAS 05:00
PROVIDERS: PCP Family Medicine; Visit Provider Internal Medicine
DX: E78.5 Hyperlipidemia, unspecified (principal); G35 Multiple sclerosis; J96.11 Chronic respiratory failure with hypoxia; E11.9 Type 2 diabetes mellitus without complications; I10 Essential (primary) hypertension; E87.6 Hypokalemia; G89.29 Other chronic pain
CPT/HCPCS: 36415; 80061

== ENCOUNTER → 2024-08-06 | Outpatient (REF) | payer MEDICARE, MEDICAID, SELFPAY ==
[2024-08-06 08:12] LABS: Mucous, Urine 0 SEEN /hpf (<or=2+)
[2024-08-06 08:51] LABS: Color, Urine Straw (Yellow); Glucose, Dipstick 50 mg/dl (Normal); Ketone-Dipstick Negative (Negative); Leukocyte Esterase-Dipstick 500 /ul (Negative); Nitrite-Dipstick Negative (Negative); Occult Blood-Urine 250 /ul (Negative); Protein-Dipstick 500 mg/dl (Negative); Urine Bilirubin Dipstick Negative (Negative); Urine Clarity Turbid (Clear); Urine Urobilinogen Normal (Normal)
[2024-08-06 08:55] LABS: Absolute Lymphocyte Count 1.08 X10^3/uL (0.83-4.51); Basophil# 0.07 X10^3/uL; Basophil% 0.7 % (0-1); Eosinophil# 0.37 X10^3/uL; Eosinophils% 3.8 % (0-5); Hematocrit 41.6 % (37-47); Hemoglobin 12.5 g/dL (12.0-15.0); Lymphocyte # 1.08 X10^3/ul (0.83-4.51); Mean Corpuscular Hgb 24.3 pg (27.0-32.0); Mean Corpuscular Volume 80.9 fL (81-99); Mean Platelet Vol. 8.8 fl (6.2-12.0); Monocyte# 1.23 X10^3/uL; Monocyte% 12.5 % (0-10); NRBC Flagged by Analyzer 0 % (0-5); Neutrophil # 6.98 X10^3/uL (2.7-7.7); Platelet Count 452 K/mm3 (150-450); RBC Distribution Width CV 15.6 % (11.6-14.6); RBC Distribution Width SD 46.3 fl (35.1-43.9); Red Blood Count 5.14 M/mm3 (4.2-5.4); White Blood Count 9.8 K/mm3 (4.4-11.0)
[2024-08-06 09:20] LABS: Red Blood Cells-Urine 0-5 SEEN /hpf (0-5); Squamous Epithelial Cells - UA 0-5 SEEN /hpf (5-10); White Blood Cells >100 SEEN /hpf (0-5)
[2024-08-06 09:21] LABS: Bacteria 3+ /hpf (None Seen)
[2024-08-06 09:28] LABS: ALB/GLOB Ratio 0.9 RATIO (0.9-2.4); AST(SGOT) 16 U/L (<=31); Alanine Aminotransfer ALT/SGPT 10 U/L (<=34); Albumin, Serum 3.3 g/dL (3.4-4.8); Alkaline Phosphatase 80 U/L (35-104); Anion Gap 13 (5-15); BUN 26 mg/dL (4-19); BUN/Creat Ratio 27.6 RATIO (10-20); Calcium,Total 10.1 mg/dL (7.6-11.0); Carbon Dioxide 22.7 mmol/L (21.0-32.0); Chloride 101 mmol/L (98-108); Creatinine, Serum 0.96 mg/dL (0.70-1.20); EST Glomerular Filtration Rate 66 (>60); Globulin 3.8 g/dL (2.2-4.2); Glucose 188 mg/dL (70-99); Potassium 3.9 mmol/L (3.3-5.1); Protein, Total 7.1 g/dL (5.9-8.4); Sodium Level 137 mmol/L (133-145); Total Bilirubin 0.21 mg/dL (0.00-1.30)
== END ==
LOC: OLS.WHLEAS 04:00
PROVIDERS: PCP Family Medicine; Referring Provider Internal Medicine; Visit Provider Internal Medicine
DX: E78.5 Hyperlipidemia, unspecified (principal); G35 Multiple sclerosis; I10 Essential (primary) hypertension; D75.839 Thrombocytosis, unspecified; J96.11 Chronic respiratory failure with hypoxia; R52 Pain, unspecified
CPT/HCPCS: 36415; 80053; 81001; 85025; 87077; 87086; 87088; 87186

== ENCOUNTER → 2024-08-19 | Outpatient (REF) | payer MEDICARE, MEDICAID, SELFPAY | LOC: OLS.WHLEAS 12:05 | PROVIDERS: PCP Family Medicine; Referring Provider Internal Medicine; Visit Provider Internal Medicine | DX: N89.8 Other specified noninflammatory disorders of vagina (principal); G35 Multiple sclerosis; I10 Essential (primary) hypertension; E11.9 Type 2 diabetes mellitus without complications; E78.5 Hyperlipidemia, unspecified | CPT/HCPCS: 87070; 87077; 87186; 87205 ==

== ENCOUNTER → 2024-09-03 | Outpatient (REF) | payer MEDICARE, MEDICAID, SELFPAY ==
[2024-09-03 09:20] LABS: Hemoglobin A1c 7.9 % (<=5.6)
== END ==
LOC: OLS.WHLEAS 05:00
PROVIDERS: PCP Family Medicine; Visit Provider Internal Medicine
DX: E11.9 Type 2 diabetes mellitus without complications (principal)
CPT/HCPCS: 36415; 83036

== ENCOUNTER → 2024-09-04 | Outpatient (REF) | payer MEDICARE, MEDICAID, SELFPAY ==
[2024-09-04 09:52] LABS: Anion Gap 15 (5-15); BUN 28 mg/dL (4-19); Calcium,Total 10.3 mg/dL (7.6-11.0); Carbon Dioxide 20.5 mmol/L (21.0-32.0); Chloride 102 mmol/L (98-108); Creatinine, Serum 0.93 mg/dL (0.70-1.20); EST Glomerular Filtration Rate 68 (>60); Glucose 137 mg/dL (70-99); Potassium 4.1 mmol/L (3.3-5.1); Sodium Level 137 mmol/L (133-145)
== END ==
LOC: OLS.WHLEAS 05:00
PROVIDERS: PCP Family Medicine; Visit Provider Internal Medicine
DX: E87.6 Hypokalemia (principal); G35 Multiple sclerosis; E11.9 Type 2 diabetes mellitus without complications; I10 Essential (primary) hypertension
CPT/HCPCS: 36415; 80048

== ENCOUNTER → 2024-10-08 | Outpatient (REF) | payer MEDICARE, MEDICAID, SELFPAY ==
[2024-10-08 09:18] LABS: Cholesterol 126 mg/dL (<=200); High Density Lipoprotein 30 mg/dL; Low Density Lipoprotein Calc. 44 mg/dL; Triglycerides 261 mg/dL; Very Low Density Lipoprotein 52 mg/dL (5-40); cholesterol:hdl ratio screen 4.16
== END ==
LOC: OLS.WHLEAS 05:00
PROVIDERS: PCP Family Medicine; Visit Provider Internal Medicine
DX: E78.5 Hyperlipidemia, unspecified (principal); G35 Multiple sclerosis; I10 Essential (primary) hypertension
CPT/HCPCS: 36415; 80061

== ENCOUNTER → 2024-10-11 | Outpatient (REF) | payer MEDICARE, MEDICAID, SELFPAY | LOC: OLS.WHLEAS 12:30 | PROVIDERS: PCP Family Medicine; Visit Provider Nurse Practitioner Adult Health | DX: N77.1 Vaginitis, vulvitis and vulvovaginitis in diseases classified elsewhere (principal); Z00.00 Encounter for general adult medical examination without abnormal findings | CPT/HCPCS: 87070; 87077; 87186; 87205 ==

== ENCOUNTER → 2024-11-05 05:00 | Outpatient (REF) | payer MEDICARE, MEDICAID, SELFPAY ==
--- OUTSIDE RECORDS SUMMARY | 2024-11-05 03:28 | XMS RPT_ITS | CCD ---
Author Organization [facility] Care Team Providers Care Inspector [employer]ded [employer] Name Role Phone No, Physician Unavailable Unavailable Unavailable Unavailable Unavailable Joan Hughes Primary Care Provider [phone] Mercedes Physician Primary Care Provider Joan Antunez Primary Care Provider Joan Hughes MD Primary Care Provider Joan Hughes MD Primary Care Provider JOAN HUGHES Primary Care Unavailable WILLARD EPPERSON Attending Unavailabl e WILLARD EPPERSON Attending Unavailabl e JOAN HUGHES Primary Care Unavailable JOAN HUGHES Primary Care Unavailable WILLARD EPPERSON Attending Unavailabl e WILLARD EPPERSON Admitting Unavailabl WILLARD Gonzalez Attending Unavailabl e JOAN HUGHES Primary Care Unavailable WILLARD EPPERSON Referring Unavailabl JOAN Salmeron Primary Care Unavailable WILLARD EPPERSON Admitting UnavailJOAN Gan Primary Care Unavailable WILLARD EPPERSON Admitting Unavailabl WILLARD Gonzalez Attending Unavailabl e JOAN HUGHES Primary Care Unavailable WILLARD EPPERSON Referring Unavailabl e WILLARD EPPERSON Admitting Unavailabl WILLARD Gonzalez Attending Unavailabl e JOAN HUGHES Primary Care Unavailable WILLARD EPPERSON Admitting Unavailabl e WILLARD EPPERSON Referring Unavailabl e WILLARD EPPERSON Admitting Unavailabl e ELLEN, JOAN Primary Care Unavailable Dr. Joan Hughes Primary Care Provider [phone] Dr. Erick Jin Emergency Provider Dr. Faheem Lamb Admit Provider Dr. Faheem Lamb Attending Provider Dr. Faheem Lamb Other Provider Dr. Maile Apodaca Attending Provider Dr. Maile Apodaca Other Provider Dr. Maile Apodaca Referring Provider Dr. Jose Cruz Wright Attending Provider Dr. Jose Cruz Wright Other Provider Dr. Alan Terry Other Provider Jaylen VACUUM DRIER OPERATOR, VACUUM DRIER OPERATOR-C Meera Other Provider Dr. Rina Diaz Other Provider Dr. Alan Terry Attending Provider Dr. Rina Diaz Attending Provider Dr. Bijan Swain Attending Provider Dr. Bijan Swain Other Provider Dr. Anil Abreu Attending Provider Dr. Alek Ray Referring Provider Elin VACUUM DRIER OPERATOR, VACUUM DRIER OPERATOR-C Britney Attending Provider Joan Sher MD Primary Care Provider JOAN HUGHES Primary Care Unavailable WILLARD EPPERSON Attending JOAN Antunez Primary Care Unavailable WILLARD EPPERSON Attending Dr. Joan Antunez Primary Care Provider [phone] Dr. Joan Hughes Primary Care Provider Elin VACUUM DRIER OPERATOR, VACUUM DRIER OPERATOR-C Britney Attending Provider Dr. Joan Sher Primary Care Provider [phone] Elin VACUUM DRIER OPERATOR, VACUUM DRIER OPERATOR-C Britney Attending Provider Dr. Joan Sher Primary Care Provider [phone] Elin VACUUM DRIER OPERATOR, VACUUM DRIER OPERATOR-C Britney Attending Provider Dr. Joan Sher Primary Care Provider Elin VACUUM DRIER OPERATOR, VACUUM DRIER OPERATOR-C Britney Attending Provider Dr. Joan Sher Primary Care Provider Elin VACUUM DRIER OPERATOR, VACUUM DRIER OPERATOR-C Britney Attending Provider Joan Sher MD Primary Care Provider Dr. Breanne Ruiz Attending Provider [phone] Dr. Joan Hughes Primary Care Provider Elin VACUUM DRIER OPERATOR, VACUUM DRIER OPERATOR-C Britney Attending Provider Dr. Breanne Hensley Attending Provider [phone] Dr. Joan Hughes Primary Care Provider Elin VACUUM DRIER OPERATOR, VACUUM DRIER OPERATOR-C Britney Attending Provider Dr. Joan Sher Primary Care Provider Elin VACUUM DRIER OPERATOR, VACUUM DRIER OPERATOR-C Britney Attending Provider Dr. Breanne Hensley Attending Provider [phone] Dr. Joan Hughes Primary Care Provider Elin VACUUM DRIER OPERATOR, VACUUM DRIER OPERATOR-C Britney Attending Provider Dr. Joan Sher Primary Care Provider Elin VACUUM DRIER OPERATOR, VACUUM DRIER OPERATOR-C Britney Attending Provider MD Breanne Robbins Attending Provider Dr. Joan Sher Primary Care Provider Elin VACUUM DRIER OPERATOR, VACUUM DRIER OPERATOR-C Britney Attending Provider Dr. Breanne Ruiz Attending Provider [phone] Dr. Joan Hughes Primary Care Provider Elin VACUUM DRIER OPERATOR, VACUUM DRIER OPERATOR-C Britney Attending Provider OLGA Santacruz Attending Provider [phone] FRANCIS Romeo Attending Provider [phone] Dr. Joan Hughes Primary Care Provider Elin VACUUM DRIER OPERATOR, VACUUM DRIER OPERATOR-C Britney Attending Provider Dr. Breanne Ruiz Attending Provider [phone] OLGA Santacruz Attending Provider [phone] JERRELL Romeo-C Poornima Attending Provider [phone] Dr. Joan Hughes Primary Care Provider Dr. Breanne Ruiz Attending Provider [phone] Dr. Joan Hughes Primary Care Provider [phone] Elin VACUUM DRIER OPERATOR, VACUUM DRIER OPERATOR-C Britney Attending Provider Ellen BOO, Dr. Meza Primary Care Provider Elin VACUUM DRIER OPERATOR-C, Britney Attending Provider Sara BOO, Breanne Attending Provider Unavaildivya Ruiz MD, Efvannessa Referring Provider Unavaildivya Ruiz MD, Dr. Raymundo Attending Provider [phone] Joan Hughes Primary Care Unavailable Britney Worthington NP Attending Unavailable Oleghe OLS, Efewongbe Attending Unavailabl e Elderbrock, Joan Primary Care Unavailable Oleghe OLS, Efewongbe Attending Unavailabl e [place], Joan Primary Care Unavailable [place], Joan Primary Care Unavailable Oleghe, Efewongbe Attending Unavailable Oleghe OLS, Efewongbe Attending Unavailabl e [place], Joan Primary Care Unavailable Oleghe OLS, Efewongbe Attending Unavailabl e [place], Joan Primary Care Unavailable Oleghe OLS, Efewongbe Referring Unavailabl e Oleghe OLS, Efewongbe Attending Unavailabl e [place], Joan Primary Care Unavailable Oleghe OLS, Efewongbe Attending Unavailabl e [place], Joan Primary Care Unavailable Oleghe OLS, Efewongbe Attending Unavailabl e [place], Joan Primary Care Unavailable Oleghe OLS, Efewongbe Referring Unavailabl e [place], Joan Primary Care Unavailable Oleghe OLS, Efewongbe Attending Unavailabl e Oleghe OLS, Efewongbe Attending Unavailabl e [place], Joan Primary Care Unavailable Oleghe OLS, Efewongbe Attending Unavailabl e [place], Joan Primary Care Unavailable Oleghe OLS, Efewongbe Attending Unavailabl e [place], Joan Primary Care Unavailable Oleghe OLS, Efewongbe Attending Unavailabl e [place], Joan Primary Care Unavailable Oleghe OLS, Efewongbe Attending Unavailabl e [place], Joan Primary Care Unavailable Oleghe OLS, Efewongbe Attending Unavailabl e [place], Joan Primary Care Unavailable [place]ickton OLS, Britney Attending Unavailable [place], Joan Primary Care Unavailable [place] VACUUM DRIER OPERATOR, Britney Attending Unavailable [place], Joan Primary Care Unavailable [place], Joan Primary Care Unavailable Oleghe, Efewongbe Attending Unavailable [place] VACUUM DRIER OPERATOR, Britney Attending Unavailable [place], Joan Primary Care Unavailable [place] VACUUM DRIER OPERATOR, Britney Attending Unavailable [place], Joan Primary Care Unavailable Oleghe OLS, Efewongbe Attending Unavailabl e [place], Joan Primary Care Unavailable Oleghe OLS, Efewongbe Attending Unavailabl e [place], Joan Primary Care Unavailable Oleghe, Efewongbe Attending Unavailable [place], Joan Primary Care Unavailable Oleghe OLS, Efewongbe Referring Unavailabl e Oleghe OLS, Efewongbe Attending Unavailabl e [place], Joan Primary Care Unavailable [place] VACUUM DRIER OPERATOR, Britney Attending Unavailable [place], Joan Primary Care Unavailable [place], Joan Primary Care Unavailable Oleghe, Efewongbe Attending Unavailable [place], Joan Primary Care Unavailable [place] VACUUM DRIER OPERATOR, Britney Attending Unavailable [place], Joan Primary Care Unavailable [place] VACUUM DRIER OPERATOR, Britney Attending Unavailable [place], Joan Primary Care Unavailable Poornima Romeo Attending Unavailable [place], Joan Primary Care Unavailable Oleghe, Efewongbe Attending Unavailable [place], Joan Primary Care Unavailable [place] VACUUM DRIER OPERATOR, Britney Attending Unavailable [place], Joan Primary Care Unavailable [place] VACUUM DRIER OPERATOR, Britney Attending Unavailable Oleghe, Efewongbe Attending Unavailable [place], Joan Primary Care Unavailable Oleghe OLS, Efewongbe Attending Unavailabl e [place], Joan Primary Care Unavailable Oleghe OLS, Efewongbe Attending Unavailabl e [place], Joan Primary Care Unavailable Allergies Allergy Classification Reported Allergen(s) Allergy Type Date of Onset Reaction(s) Facility Aspirin / Caffeine / Orphenadrine (11 sources) Aspirin / Caffeine / Orphenadrine Drug Allergy 5 [facility] [place] NSAIDs (20 sources) Ibuprofen Drug Allergy 5 Swelling, Hives, Itching [facility] [place] Penicillins (antibiotic) (11 sources) Penicillins Drug Allergy 5 [facility] Sulfonamides (antibiotic) (11 sources) Sulfonamides (Antibiotic) Drug Allergy 6 [facility] Tetracyclines (antibiotic) (11 sources) Tetracycline Drug Allergy 5 [facility] (20 sources) aspirin / caffeine / orphenadrine; Translations: [ORPHENADRINE- A-CAFFEINE] Propensity to adverse reactions to drug 5 [facility] [place] Work Phone: (20 sources) ibuprofen; Translations: [IBUPROFEN] Propensity to adverse reactions to drug 8 Swelling [facility] [place] Work Phone: (20 sources) naproxen; Translations: [NAPROXEN SODIUM] Propensity to adverse reactions to drug 5 Hives, Itching, Swelling [facility] [place] Work Phone: (20 sources) Penicillins; Translations: [PENICILLINS] Propensity to adverse reactions to drug 5 [facility] Work Phone: (20 sources) Sulfonamides (Antibiotic); Translations: [SULFA (SULFONAMIDE ANTIBIOTICS)] Propensity to adverse reactions to drug 6 [facility] Work Phone: (20 sources) tetracycline; Translations: [TETRACYCLINE] Propensity to adverse reactions to drug 5 [facility] Work Phone: (6 sources) Penicillins Propensity to adverse reactions to drug 5 [facility] (8 sources) Sulfonamides (Antibiotic) Propensity to adverse reactions to drug 6 [facility] (20 sources) Naproxen Drug Allergy 1 Rash [facility] (20 sources) tiZANidine Drug Allergy 9 Other: See [facility] (2 sources) Penicillins Propensity to adverse reactions 5 [facility] (1 source) Naproxen Drug Allergy 1 [facility] (1 source) Penicillins Drug allergy (disorder) 1 [facility] (1 source) Sulfonamides (Antibiotic) Drug allergy (disorder) 1 [facility] (1 source) tiZANidine Drug Allergy 1 [facility] Medications Current Medications Medication Drug Class(es) Dates Sig (Normalized) Sig (Original) Mayra Jordan (Pf) 60 McG/0.5 Ml Intramuscular Syringe (9 sources) Start: 02-09-2017 NYDIAURIA QUAD , PF, syringe ADMINISTERED AT DD 0 02/09/2017 Active NYDIAURIA QUAD , PF, syringe (1 source) Start: 02-09-2017 NYDIAURIA HUEY , PF, syringe ADMINISTERED AT DD 0 02/09/2017 Active atenolol 25 mg oral tablet (20 sources) beta-Adrenergic Lora Start: 02-02-2016 take 1 tablet by mouth once daily Atenolol 25 tablet Active 25 mg PO DAILY July 03, 2018 1:00am Comment on above: Take 1 tablet by niall once daily. cholecalciferol 0.25 mg oral capsule (20 sources) Vitamin D Start: 04-09-2021 take 1 capsule by mouth every other day cholecalciferol (VITAMIN D3) 250 mcg (10,000 unit) capsule Indications: Vitamin D deficiency Take 1 (one) capsule (10,000 Units total) by mouth every other day . 90 capsule 3 04/09/2021 Active Start: 04-24-2020 End: 01-08-2022 take 1 capsule by mouth once daily cholecalciferol (VITAMIN D3) 250 mcg (10,000 unit) capsule Indications: Vitamin D deficiency Take 1 (one) capsule (10,000 Units total) by mouth daily . 90 capsule 3 01/08/2021 04/09/2021 Discontinued (Reorder) Start: 05-09-2018 Cholecalcifero l, Vitamin D3, 5,000 unit cap Start: 08-25-2017 End: 04-13-2019 take 1 capsule by mouth once daily cholecalciferol, vitamin D3, 5,000 unit capsule Take 1 (one) capsule (5,000 Units total) by mouth daily . 90 capsule 2 04/13/2018 04/13/2019 Active End: 08-25-2017 take 1 capsule by mouth once daily cholecalciferol (VITAMIN D3) 10,000 unit capsule Take 10,000 Units by mouth daily. 08/25/2017 Discontinued ergocalciferol 1.25 mg oral capsule (2 sources) Provitamin D2 Compound Start: 04-23-2021 End: 04-23-2022 take 1 capsule by mouth every week ergocalciferol (ERGOCALCIFEROL) 1,250 mcg (50,000 unit) capsule Indications: Vitamin D deficiency Take 1 (one) capsule (50,000 Units total) by mouth once a week . 12 capsule 3 04/23/2021 Active loratadine 10 mg oral tablet (20 sources) Start: 02-28-2006 loratadine (CLARITIN) 10 mg tablet Take by mouth. 0 02/28/2006 Active ocrelizumab (OCREVUS IV) (20 sources) ocrelizumab (OCR EVUS IV) Infuse 600 mg into a venous catheter every 6 (six) months. 0 Active ocrelizumab (OCR EVUS IV) Infuse 600 mg into a venous catheter every 6 (six) months. Active Completed/Discontinued Medications Medication Drug Class(es) Dates Sig (Normalized) Sig (Original) acetaminophen 325 mg oral tablet (20 sources) Start: 04-09-2021 End: 04-09-2021 acetaminophen (TYLENOL) tablet 650 mg Start: 04-09-2021 End: 04-09-2021 acetaminophen (TYLENOL) tabl et 650 mg Start: 04-09-2021 End: 04-09-2021 acetaminophen (TYLENOL) tabl et 650 mg Start: 10-16-2020 End: 10-16-2020 acetaminophen (TYLENOL) tabl et 650 mg Start: 10-16-2020 End: 10-16-2020 acetaminophen (TYLENOL) tabl et 650 mg Start: 04-17-2020 End: 04-17-2020 acetaminophen (TYLENOL) tabl et 650 mg Start: 10-18-2019 End: 10-18-2019 acetaminophen (TYLENOL) tabl et 650 mg Start: 04-12-2019 End: 04-12-2019 acetaminophen (TYLENOL) tabl et 650 mg Start: 10-12-2018 End: 10-12-2018 acetaminophen (TYLENOL) tabl et 650 mg Start: 07-03-2018 take 2 tablets by mo uth every four hours as needed for pain Acetaminophen 500 MG tablet Active 1000 mg PO EVERY 4 HOURS NEEDED as needed for Pain July 03, 2018 1:00am Start: 07-03-2018 take 1000 mg by mout h every four hours as needed Acetaminophen Active 1000 MG PO EVERY 4 HOURS NEEDED July 03, 2018 1:00am Start: 10-11-2017 End: 10-11-2017 acetaminophen (TYLENOL) tabl et 650 mg Start: 04-13-2017 End: 04-13-2017 take 1 tablet by mouth every six hours as needed for pain, then take 100.4 tablets by mouth as needed for pain acetaminophen (TYLENOL) tablet 650 mg 650 mg, Oral, Every 6 hours PRN, mild pain, fever 100.4 F or greater, headaches, Starting Nargis 04/13/17 at 1127 Given 04/13/2017 11:36 EST 650 mg Start: 04-09-2009 acetaminophen( TYLENOL 325 MG TAB) Take two(2) tablets every four(4) to six(6) hours as needed for pain. 0 04/09/2009 Active take 1 tablet by [facility] every six hours as needed for pain acetaminophen (TYLENOL) 500 MG tablet Take 500 mg by mouth every 6 (six) hours as needed for pain. 0 Active Comment on above: Take two(2) tablets every four(4) to six(6) hours as needed for pain. biotin 5 mg sublingual table t (12 sources) biotin 5,000 mcg subl Dissolve under the tongue. 0 Active End: 04-17-2020 biotin 1 mg cap Take by mout h 3 (three) times a day . 0 04/17/2020 Discontinued (Therapy completed) Comment on above: Dissolve under the t ongue. 12 hr dalfampridine 10 mg extended release oral tablet (20 sources) Start: 05-26-2020 End: 10-16-2020 dalfampridine 10 mg Tb12 Indications: Multiple sclerosis (HCC) Take 10 mg by mouth every 12 (twelve) hours . 60 tablet 11 05/26/2020 10/16/2020 Discontinued (Therapy completed) Start: 05-17-2018 dalfampridine (AMPYRA) 10 mg tablet Start: 04-16-2018 End: 10-18-2019 dalfampridine 10 mg Tb12 Ind ications: Multiple sclerosis (HCC) Take 10 mg by mouth every 12 (twelve) hours . 60 tablet 11 10/18/2019 Active Start: 01-23-2018 take 1 tablet by [facility] twice daily dalfampridine 10 mg Tb12 Take 10 mg by mouth 2 (two) times a day. 180 tablet 3 01/23/2018 Active diphenhydrAMINE (12 sources) Histamine-1 Receptor Antagonist Start: 04-09-2021 End: 04-09-2021 diphenhydrAMINE (BENADRYL) injection 25 mg Start: 10-16-2020 End: 10-16-2020 diphenhydrAMINE (BENADRYL) i njection 25 mg Start: 04-17-2020 End: 04-17-2020 diphenhydrAMINE (BENADRYL) i njection 25 mg Start: 10-18-2019 End: 10-18-2019 diphenhydrAMINE (BENADRYL) i njection 25 mg Start: 04-12-2019 End: 04-12-2019 diphenhydrAMINE (BENADRYL) i njection 25 mg Start: 10-12-2018 End: 10-12-2018 diphenhydrAMINE (BENADRYL) i njection 25 mg Start: 10-11-2017 End: 10-11-2017 diphenhydrAMINE (BENADRYL) o ral solid 25 mg Start: 05-04-2017 End: 05-04-2017 take 25 mg by mouth once diphenhydrAMINE (BENADRYL) o ral solid 25 mg 25 mg, Oral, Once, [facility] 05/04/17 at 0900, For 1 dose, Administer 30 minutes prior to Ocrelizumab. Given 05/04/2017 08:53 EST 25 mg Start: 04-13-2017 End: 04-13-2017 take 25 mg by mouth once diphenhydrAMINE (BENADRYL) o ral solid 25 mg 25 mg, Oral, Once, [facility] 04/13/17 at 1200, For 1 dose, Administer 30 minutes prior to Ocrelizumab. Given 04/13/2017 11:36 EST 25 mg gadoterate meglumine (DOTAREM) injection 12 mL (1 source) Start: 09-28-2018 End: 09-28-2018 gadoterate meglumine (DOTAREM) injection 12 mL LORazepam 0.5 mg oral tablet (7 sources) Benzodiazepine Start: 01-16-2015 End: 05-25-2017 take 1 tablet by mouth once daily as needed for anxiety LORazepam (ATIVAN) 0.5 mg tab Indications: Anxiety state, unspecified Take 1 tablet by mouth once daily. As needed for anxiety 30 tablet 5 05/11/2016 Active Comment on above: Take 1 tablet by niall th once daily. As needed for anxiety meclizine hydrochloride 25 mg oral tablet (1 source) Antiemetic Start: 02-28-2020 take 1 tablet by mouth every six hours as needed for dizziness and dizziness meclizine (ANTIVERT) 25 mg tab Indications: Dizziness Take 1 tablet by mouth every 6 hours as needed (dizziness). 30 tablet 3 02/28/2020 Active Comment on above: Take 1 tablet by niall th every 6 hours as needed (dizziness). methylPREDNISolone 125 mg injection (12 sources) Corticosteroid Start: 04-09-2021 End: 04-09-2021 methylPREDNISolone sod suc(PF) (SOLU-medrol) Injection 125 mg Start: 04-09-2021 End: 04-09-2021 methylPREDNISolone sod suc(P F) (SOLU-medrol) Injection 125 mg Start: 04-09-2021 End: 04-09-2021 methylPREDNISolone sod suc(P F) (SOLU-medrol) Injection 125 mg Start: 10-16-2020 End: 10-16-2020 methylPREDNISolone sod suc(P F) (SOLU-medrol) Injection 125 mg Start: 10-16-2020 End: 10-16-2020 methylPREDNISolone sod suc(P F) (SOLU-medrol) Injection 125 mg Start: 04-17-2020 End: 04-17-2020 methylPREDNISolone sod suc(P F) (SOLU-medrol) Injection 125 mg Start: 10-18-2019 End: 10-18-2019 methylPREDNISolone sod suc(P F) (SOLU-medrol) Injection 125 mg Start: 04-12-2019 End: 04-12-2019 methylPREDNISolone sod suc(P F) (SOLU-medrol) Injection 125 mg Start: 10-12-2018 End: 10-12-2018 methylPREDNISolone sod suc(P F) (SOLU-medrol) Injection 125 mg Start: 10-11-2017 End: 10-11-2017 methylPREDNISolone sod suc(P F) (SOLU-medrol) Injection 125 mg Start: 05-04-2017 End: 05-04-2017 methylPREDNISolone sod suc(P F) (SOLU-medrol) Injection 125 mg 125 mg, Intravenous, Once, [facility] 05/04/17 at 0900, For 1 dose, Administer 30 minutes prior to Ocrelizumab Given 05/04/2017 08:53 EST 125 mg Start: 04-13-2017 End: 04-13-2017 methylPREDNISolone sod suc(P F) (SOLU-medrol) Injection 125 mg 125 mg, Intravenous, Once, [facility] 04/13/17 at 1200, For 1 dose, Administer 30 minutes prior to Ocrelizumab Given 04/13/2017 11:38 EST 125 mg ocrelizumab (OCREVUS INTRAVENOUS) (1 source) ocrelizumab (OCR EVUS INTRAVENOUS) Inject intravenously. 0 Active Comment on above: Inject intravenously . ocrelizumab (OCREVUS) 300 mg in sodium chloride 0.9 % (NS) 250 mL IVPB 300 mg, Intravenous, at 0-180 mL/hr, Once, [facility] 05/04/17 at 0930, For 1 dose, Day 1, Day 15 Infuse 300mg dose as follows: 0 - 30 minutes: rate = 30 ml/hr 31-60 minutes: rate = 60 ml/hr 61-90 minutes: rate = 90 ml/hr 91-120 minutes: rate = 120 ml/hr 121-150 minutes: rate = 150 ml/hr 151 minutes-end: Maximum rate = 180mL/hr Infuse with 0.2 micron in-line filter Rate/Dose Change 05/04/2017 10:52 EST 120 mL/hr (1 source) Start: 05-04-2017 End: 05-04-2017 ocrelizumab (OCREVUS) 300 mg in sodium chloride 0.9 % (NS) 250 mL IVPB 300 mg, Intravenous, at 0-180 mL/hr, Once, [facility] 05/04/17 at 0930, For 1 dose, Day 1, Day 15 Infuse 300mg dose as follows: 0 - 30 minutes: rate = 30 ml/hr 31-60 minutes: rate = 60 ml/hr 61-90 minutes: rate = 90 ml/hr 91-120 minutes: rate = 120 ml/hr 121-150 minutes: rate = 150 ml/hr 151 minutes-end: Maximum rate = 180mL/hr Infuse with 0.2 micron in-line filter Rate/Dose Change 05/04/2017 10:52 EST 120 mL/hr ocrelizumab (OCREVUS) 300 mg in sodium chloride 0.9 % (NS) 250 mL IVPB 300 mg, Intravenous, at 0-180 mL/hr, Once, [facility] 04/13/17 at 1230, For 1 dose, Day 1, Day 15 Infuse 300mg dose as follows: 0 - 30 minutes: rate = 30 ml/hr 31-60 minutes: rate = 60 ml/hr 61-90 minutes: rate = 90 ml/hr 91-120 minutes: rate = 120 ml/hr 121-150 minutes: rate = 150 ml/hr 151 minutes-end: Maximum rate = 180mL/hr Infuse with 0.2 micron in-line filter Rate/Dose Change 04/13/2017 13:44 EST 120 mL/hr (1 source) Start: 04-13-2017 End: 04-13-2017 ocrelizumab (OCREVUS) 300 mg in sodium chloride 0.9 % (NS) 250 mL IVPB 300 mg, Intravenous, at 0-180 mL/hr, Once, [facility]is 04/13/17 at 1230, For 1 dose, Day 1, Day 15 Infuse 300mg dose as follows: 0 - 30 minutes: rate = 30 ml/hr 31-60 minutes: rate = 60 ml/hr 61-90 minutes: rate = 90 ml/hr 91-120 minutes: rate = 120 ml/hr 121-150 minutes: rate = 150 ml/hr 151 minutes-end: Maximum rate = 180mL/hr Infuse with 0.2 micron in-line filter Rate/Dose Change 04/13/2017 13:44 EST 120 mL/hr ocrelizumab (OCREVUS) 600 mg in sodium chloride 0.9 % (NS) 500 mL IVPB (10 sources) Start: 04-09-2021 End: 04-09-2021 ocrelizumab (OCREVUS) 600 mg in sodium chloride 0.9 % (NS) 500 mL IVPB Start: 10-16-2020 End: 10-16-2020 ocrelizumab (OCREVUS) 600 mg in sodium chloride 0.9 % (NS) 500 mL IVPB Start: 04-17-2020 End: 04-17-2020 ocrelizumab (OCREVUS) 600 mg in sodium chloride 0.9 % (NS) 500 mL IVPB Start: 10-18-2019 End: 10-18-2019 ocrelizumab (OCREVUS) 600 mg in sodium chloride 0.9 % (NS) 500 mL IVPB Start: 04-12-2019 End: 04-12-2019 ocrelizumab (OCREVUS) 600 mg in sodium chloride 0.9 % (NS) 500 mL IVPB Start: 10-12-2018 End: 10-12-2018 ocrelizumab (OCREVUS) 600 mg in sodium chloride 0.9 % (NS) 500 mL IVPB Start: 10-11-2017 End: 10-11-2017 ocrelizumab (OCREVUS) 600 mg in sodium chloride 0.9 % (NS) 500 mL IVPB sertraline 50 mg oral tablet (11 sources) Serotonin Reuptake Inhibitor Start: 06-23-2016 End: 05-25-2018 take 1 tablet by mouth once daily sertraline (ZOLOFT) 50 MG tablet Indications: Anxiety Take 1 (one) tablet (50 mg total) by mouth daily. 30 tablet 6 05/25/2017 05/25/2017 Discontinued 1000 ml sodium chloride 9 mg/ml injection (12 sources) Start: 04-09-2021 End: 04-09-2021 sodium chloride 0.9% (NS) Start: 10-16-2020 End: 10-16-2020 sodium chloride 0.9% (NS) Start: 04-17-2020 End: 04-17-2020 sodium chloride 0.9% (NS) Start: 10-18-2019 End: 10-18-2019 sodium chloride 0.9% (NS) Start: 04-12-2019 End: 04-12-2019 sodium chloride 0.9% (NS) Start: 10-12-2018 End: 10-12-2018 sodium chloride 0.9% (NS) Start: 10-11-2017 End: 10-11-2017 sodium chloride 0.9% (NS) Start: 05-04-2017 End: 05-04-2017 take 25 mL intravenous route every hour sodium chloride 0.9% (NS) 25 mL/hr, Intravenous, Continuous, Starting Narg[facility] 11/30/17 at 0930 Rate/Dose Verify 05/04/2017 11:00 EST 25 mL/hr 25 mL/hr Start: 04-13-2017 End: 04-13-2017 take 25 mL intravenous route every hour sodium chloride 0.9% (NS) 25 mL/hr, Intravenous, Continuous, Starting [facility] 04/13/17 at 1215 Rate/Dose Verify 04/13/2017 12:15 EST 25 mL/hr 25 mL/hr tiZANidine 4 mg oral tablet (17 sources) Central alpha-2 Adrenergic Agonist Start: 04-13-2018 End: 10-01-2018 tiZANidine (ZANAFLEX) 4 MG tablet Indications: Multiple sclerosis (HCC) Take 1/2 tablet (2 mg) by mouth in the AM and 1 pill (4 mg) at night . 135 tablet 2 04/13/2018 10/01/2018 Discontinued Start: 01-27-2017 End: 08-25-2017 tiZANidine (ZANAFLEX) 4 MG t ablet Indications: Multiple sclerosis (HCC) Take 1/2 tablet (2 mg) by mouth in the AM and 1 pill (4 mg) at night. 135 tablet 3 02/13/2017 Active Start: 01-27-2017 End: 02-13-2017 take 1 tablet by mouth twice daily tiZANidine (ZANAFLEX) 4 MG tablet Indications: Multiple sclerosis (HCC) Take 1/2 tablet (2 mg) by mouth twice a day. 90 tablet 1 01/27/2017 02/13/2017 Discontinued Start: 06-23-2016 take 0.5 tablet by m outh twice daily, then take 1 tablet by mouth tiZANidine (ZANAFLEX) 4 MG tablet Indications: Multiple sclerosis (HCC) Take 1/2 tablet (2 mg) by mouth twice a day. 30 tablet 6 06/23/2016 Active Problems Active Problems Problem Classification Problem Date Documented Date Episodic/Chronic Acute and unspecified renal failure (2 sources) Acute kidney failure, unspecified; Translations: [Acute kidney failure, unspecified] Onset: 02-26-2024 Episodic Conditions associated with dizziness or vertigo (20 sources) Dizziness; Translations: [Dizziness and giddiness] 01-27-2020 Episodic Diabetes mellitus without complication (2 sources) Type 2 diabetes mellitus without complications; Translations: [Type 2 diabetes mellitus without complications] Onset: 07-17-2024 Chronic Disorders of lipid metabolism (2 sources) Hyperlipidemia, unspecified; Translations: [Hyperlipidemia, unspecified] Onset: 07-17-2024 Chronic Diverticulosis and diverticulitis (1 source) Diverticulosis of colon; Translations: [Diverticulosis of large intestine without perforation or abscess without bleeding] Onset: 04-18-2008 04-18-2008 Chronic Essential hypertension (20 sources) Hypertensive disorder; Translations: [Essential (primary) hypertension] Onset: 05-17-2016 05-17-2016 Chronic Malaise and fatigue (20 sources) Fatigue; Translations: [Asthenia] Episodic Mood disorders (20 sources) Depressive disorder; Translations: [Depression] 09-17-2021 Chronic Multiple sclerosis (20 sources) Primary progressive multiple sclerosis; Translations: [Multiple sclerosis] Onset: 06-23-2016 10-16-2016 Chronic Nutritional deficiencies (13 sources) Vitamin D deficiency; Translations: [Vitamin D deficiency, unspecified] Onset: 10-19-2020 Chronic Other circulatory disease (1 source) Orthostatic hypotension; Translations: [Orthostasis] Episodic Other connective tissue disease (1 source) Recurrent falls ; Translations: [Falls frequently] Other female genital disorders (1 source) Other specified noninflammatory disorders of vagina; Translations: [Other specified noninflammatory disorders of vagina] Onset: 09-05-2024 Episodic Other nervous system disorders (1 source) Disorder of brain; Translations: [Other encephalopathy] Chronic Other nervous system disorders (1 source) Other encephalopathy; Translations: [Other encephalopathy] Chronic Other nervous system disorders (2 sources) Other chronic pain; Translations: [Other chronic pain] Onset: 07-01-2024 Chronic Other nutritional; endocrine; and metabolic disorders (1 source) Hypercalcemia; Translations: [Hypercalcemia] Onset: 03-26-2024 Chronic Other nutritional; endocrine; and metabolic disorders (1 source) Lipoprotein deficiency; Translations: [Lipoprotein deficiency] Onset: 03-18-2024 Chronic Other screening for suspected conditions (not mental disorders or infectious disease) (2 sources) Patient encounter status; Translations: [Encounter for screening mammogram for malignant neoplasm of breast] Onset: 06-11-2018 Episodic Paralysis (20 sources) Paresis of lower extremity; 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] Onset: 03-04-2016 03-04-2016 Chronic Respiratory failure; insufficiency; arrest (adult) (2 sources) Chronic respiratory failure with hypoxia; Translations: [Chronic respiratory failure with hypoxia] Onset: 07-01-2024 Chronic Respiratory failure; insufficiency; arrest (adult) (20 sources) Acute respiratory failure; Translations: [Acute respiratory failure with hypoxia] Episodic Septicemia (except in labor) (20 sources) Sepsis; Translations: [Sepsis, unspecified organism] Episodic Unclassified (1 source) Patient encounter status; Translations: [Therapeutic drug monitoring] Unclassified (1 source) Thrombocytosis, unspecified; Translations: [Thrombocytosis, unspecified] Onset: 09-06-2024 Urinary tract infections (20 sources) Acute cystitis; Translations: [Acute cystitis without hematuria] Episodic Viral infection (20 sources) Disease caused by 2019-nCoV; Translations: [COVID-19] Episodic Past or Other Problems Problem Classification Problem Date Documented Da te Episodic/Chronic Anxiety disorders (20 sources) Anxiety; Translations: [Anxiety disorder, unspecified] Onset: 06-23-2016 Resolved: 04-08-2021 06-23-2016 Chronic Cardiac dysrhythmias (1 source) Sinus tachycardia; Translations: [Tachycardia, unspecified] Onset: 04-21-2009 04-21-2009 Episodic Fluid and electrolyte disorders (20 sources) Lactic acidosis; Translations: [Acidosis] Onset: 07-17-2024 Episodic Gastrointestinal hemorrhage (1 source) Hemorrhage of [...] allied syndromes] Onset: 03-24-2005 03-24-2005 Episodic Other connective tissue disease (2 sources) Trochanteric bursitis, right hip; Translations: [Trochanteric bursitis, right hip] Onset: 07-01-2024 Episodic Other nervous system disorders (20 sources) Ataxia; Translations: [Spasm] Onset: 05-17-2016 05-17-2016 Episodic Other nervous system disorders (8 sources) Impaired cognition; Translations: [Other symptoms and signs involving cognitive functions and awareness] Onset: 04-09-2021 04-09-2021 Episodic Residual codes; unclassified (11 sources) H/O: Disorder; Translations: [Personal history of other specified conditions] Onset: 10-19-2020 Episodic Results Test Name Value Interpretation Reference Range Facility Anion gap in Serum or Plasma Ordered By: Breanne Ruiz on 09-04-2024 Anion gap [Moles/Vol] 15 mmol/L 5-15 [facility] BUN/creatinine ratioOrdered By: Breanne Ruiz on 09-04-2024 Urea nitrogen/Creatinine [Mass ratio] 30.0 mg/mg High 10- [facility] Carbon dioxide, total [Moles /volume] in Central venous bloodOrdered By: Breanne Ruiz on 09-04-2024 CO2 [Moles/Vol] 20.5 mmol/L Low 21.0-32.0 [facility] Chloride assayOrdered By: Elio Ruiz on 09-04-2024 Chloride [Moles/Vol] 102 mmol/L 98-108 [facility] GFR/1.73 sq M.predicted cinda g non-blacks MDRD (S/P/Bld) [Vol rate/Area]Ordered By: Breanne Ruiz on 09-04-2024 Estimated GFR (MDRD) Non-Af Amer 68 >60 [facility] Comment on above: mL/min/1.73m2 CKD-EP I Creatinine Equation (2020) Potassium (Unsp spec) [Mass/ Vol]Ordered By: Breanne Ruiz on 09-04-2024 Potassium [Moles/Vol] 4.1 mmol/L 3.3-5.1 [facility] Comment on above: Hemolysis present, R esults could be affected. Serum creatinine measurement (mass/volume)Ordered By: Breanne Ruiz on 09-04-2024 Creatinine [Mass/Vol] 0.93 mg/dL 0.70-1.20 [facility] Serum glucose measurement (m ass/volume)Ordered By: Breanne Ruiz on 09-04-2024 Glucose [Mass/Vol] 137 mg/dL High 70-99 [facility] Serum or plasma calcium jj urement (mass/volume)Ordered By: Breanne Ruiz on 09-04-2024 Calcium [Mass/Vol] 10.3 mg/dL 7.6-11.0 [facility] Serum or plasma urea nitroge n measurement (mass/volume)Ordered By: Breanne Ruiz on 09-04-2024 Urea nitrogen [Mass/Vol] 28 mg/dL High 4-19 [facility] Sodium levelOrdered By: Abbie Ruiz on 09-04-2024 Sodium [Moles/Vol] 137 mmol/L 133-145 [facility] Hemoglobin A1c percentageOrd ered By: Breanne Ruiz on 09-03-2024 HbA1c (Bld) [Mass fraction] 7.9 % >5.7 [facility] Genital cultureOrdered By: Beverly Ruiz on 08-19-2024 Genital Culture Staphylococcus aureus Abnormal [facility] Gram stainOrdered By: Hank Ruiz on 08-19-2024 Microscopic observation Gram stain Nom (Unsp spec) [facility] Absolute neutrophil countOrd ered By: Breanne Ruiz on 08-06-2024 Neutrophils (Bld) [#/Vol] 7.0 10*3/uL 2.0-7.7 [facility] Anion gap in Serum or Plasma Ordered By: Breanne Ruiz on 08-06-2024 Anion gap [Moles/Vol] 13 mmol/L 5-15 [facility] BUN/creatinine ratioOrdered By: Breanne Ruiz on 08-06-2024 Urea nitrogen/Creatinine [Mass ratio] 27.6 mg/mg High 10-20 [facility] Basophil percentageOrdered B y: Breanne Ruiz on 08-06-2024 Basophils/100 WBC (Bld) 0.7 % 0-1 [facility] Bilirubin, totalOrdered By: Breanne Ruiz on 08-06-2024 Bilirubin [Mass/Vol] 0.21 mg/dL 0.00-1.30 [facility] Carbon dioxide, total [Moles /volume] in Central venous bloodOrdered By: Breanne Ruiz on 08-06-2024 CO2 [Moles/Vol] 22.7 mmol/L 21.0-32.0 [facility] Chloride assayOrdered By: Elio Ruiz on 08-06-2024 Chloride [Moles/Vol] 101 mmol/L 98-108 [facility] Eosinophil percentageOrdered By: Breanne Ruiz on 08-06-2024 Eosinophils/100 WBC (Bld) 3.8 % 0-5 [facility] Erythrocyte distribution wid th (RBC) [Ratio]Ordered By: Breanne Ruiz on 08-06-2024 Erythrocyte distribution width (RBC) [Entitic vol] 46.3 fL High 35.1-43.9 [facility] Erythrocyte distribution wid th ratioOrdered By: adalbertocanyonchetan Ruiz on 08-06-2024 Erythrocyte distribution width (RBC) [Ratio] 15.6 % High 11.6-14.6 [facility] GFR/1.73 sq M.predicted cinda g non-blacks MDRD (S/P/Bld) [Vol rate/Area]Ordered By: Breanne Ruiz on 08-06-2024 Estimated GFR (MDRD) Non-Af Amer 66 >60 [facility] Comment on above: mL/min/1.73m2 CKD-EP I Creatinine Equation (2020) Hematocrit Auto (Bld) [Volum e fraction]Ordered By: Breanne Ruiz on 08-06-2024 Hematocrit (Bld) [Volume fraction] 41.6 % 37-47 [facility] Hemoglobin measurementOrdere d By: Breanne Ruiz on 08-06-2024 Hemoglobin (Bld) [Mass/Vol] 12.5 g/dL 12.0-15.0 [facility] Immature granulocytes/100 WB C Auto (Bld)Ordered By: Breanne Ruiz on 08-06-2024 Immature granulocytes/100 WBC (Bld) 1.000 % High 0.0-0.9 [facility] Comment on above: IG% - Immature Granu locytes (promyelocytes, myelocytes and metamyelocytes) > 1% indicates that a LEFT SHIFT is Present. Laboratory - Chemistry and C hemistry - challengeOrdered By: Breanne Ruiz on 08-06-2024 AST [Catalytic activity/Vol] 16 U/L <32 [facility] Lymphocytes Auto (Unsp spec) [#/Vol]Ordered By: [facility] Kirklandbeverly on 08-06-2024 Lymphocytes (Bld) [#/Vol] 1.08 10*3/uL 0.83-4.5 1 [facility] Lymphocytes/100 WBC Auto (Un sp spec)Ordered By: Breanne Ruiz on 08-06-2024 Lymphocytes/100 WBC (Bld) 11.0 % Low 19-41 [facility] MCV (mean corpuscular volume ) determinationOrdered By: vannessa Ruiz on 08-06-2024 MCV (RBC) [Entitic vol] 80.9 fL Low 81-99 [facility] Mean corpuscular hemoglobin (MCH) determinationOrdered By: [facility] on 08-06-2024 MCH (RBC) [Entitic mass] 24.3 pg Low 27.0-32.0 [facility] Mean corpuscular hemoglobin concentration (MCHC) determinationOrdered By: [facility] on 08-06-2024 MCHC (RBC) [Mass/Vol] 30.0 g/dL Low 32-36 [facility] Mean platelet volume determi nationOrdered By: [facility] on 08-06-2024 Platelet mean volume (Bld) [Entitic vol] 8.8 fL 6.2-12.0 [facility] Monocyte percentageOrdered B y: [facility] Kriklandbeverly on 08-06-2024 Monocytes/100 WBC (Bld) 12.5 % High 0-10 [facility] Neutrophil percentageOrdered By: [facility] Isaelbeverly on 08-06-2024 Neutrophils/100 WBC (Bld) 71.0 % High 47-70 [facility] Nucleated red blood cell per centageOrdered By: [facility] Kikrlandbeverly on 08-06-2024 Nucleated RBC/100 WBC (Bld) [Ratio] 0 % 0-5 [facility] Platelet countOrdered By: Elio Ruiz on 08-06-2024 Platelets (Bld) [#/Vol] 452 10*3/uL High 150-450 [facility] Potassium (Unsp spec) [Mass/ Vol]Ordered By: Breanne Ruiz on 08-06-2024 Potassium [Moles/Vol] 3.9 mmol/L 3.3-5.1 [facility] RBC Auto (Bld) [#/Vol]Ordere d By: Breanne Ruiz on 08-06-2024 RBC (Bld) [#/Vol] 5.14 10*6/uL 4.2-5.4 [facility] Serum creatinine measurement (mass/volume)Ordered By: Breanne Ruiz on 08-06-2024 Creatinine [Mass/Vol] 0.96 mg/dL 0.70-1.20 [facility] Serum globulin measurementOr dered By: Breanne Ruiz on 08-06-2024 Globulin (S) [Mass/Vol] 3.8 g/dL 2.2-4.2 [facility] Serum glucose measurement (m ass/volume)Ordered By: Breanne Ruiz on 08-06-2024 Glucose [Mass/Vol] 188 mg/dL High 70-99 [facility] Serum or plasma alanine juárez otransferase (ALT) measurementOrdered By: Breanne Ruiz on 08-06-2024 ALT [Catalytic activity/Vol] 10 U/L <35 [facility] Serum or plasma albumin jj urement (mass/volume)Ordered By: Breanne Ruiz on 08-06-2024 Albumin [Mass/Vol] 3.3 g/dL Low 3.4-4.8 [facility] Serum or plasma albumin/glob ulin mass ratioOrdered By: Breanne Ruiz on 08-06-2024 Albumin/Globulin [Mass ratio] 0.9 {ratio} 0.9-2.4 [facility] Serum or plasma alkaline sofi sphatase measurementOrdered By: Breanne Ruiz on 08-06-2024 ALP [Catalytic activity/Vol] 80 U/L 35-104 [facility] Serum or plasma calcium jj urement (mass/volume)Ordered By: Breanne Ruiz on 08-06-2024 Calcium [Mass/Vol] 10.1 mg/dL 7.6-11.0 [facility] Serum or plasma urea nitroge n measurement (mass/volume)Ordered By: Breanne Ruiz on 08-06-2024 Urea nitrogen [Mass/Vol] 26 mg/dL High 4-19 [facility] Sodium levelOrdered By: Abbie kaminskirabia Sara on 08-06-2024 Sodium [Moles/Vol] 137 mmol/L 133-145 [facility] Total proteinOrdered By: Prashant raphaelchetan Ruiz on 08-06-2024 Protein [Mass/Vol] 7.1 g/dL 5.9-8.4 [facility] White blood cell (WBC) count Ordered By: Breanne Ruiz on 08-06-2024 WBC (Bld) [#/Vol] 9.8 10*3/uL 4.4-11.0 [facility] Bilirubin Test strip Ql (U)O rdered By: Breanne Ruiz on 08-05-2024 Bilirubin Ql (U) Negative Negative [facility] Epithelial cells.squamous LM Ql (Urine sed)Ordered By: Breanne Ruiz on 08-05-2024 Epithelial cells.squamous LM.HPF (Urine sed) [#/Area] 0 /[HPF] 5-10 [facility] Glucose Ql (U)Ordered By: Elio Ruiz on 08-05-2024 Glucose (U) [Mass/Vol] 50 mg/dL High Normal [facility] Ketones Test strip Ql (U)Ord ered By: Breanne Ruiz on 08-05-2024 Ketones Ql (U) Negative Negative [facility] Microscopic analysis of urin e for red blood cells (RBC)Ordered By: Breanne Ruiz on 08-05-2024 Urine RBC 0-5 SEEN /hpf 0-5 [facility] Mucus LM Ql (Urine sed)Order ed By: Breanne Ruiz on 08-05-2024 Mucus Ql (Urine sed) 0 SEEN /hpf [facility] Nitrite Test strip Ql (U)Ord ered By: Breanne Ruiz on 08-05-2024 Nitrite Ql (U) Negative Negative [facility] Protein Test strip Ql (U)Ord ered By: Breanne Ruiz on 08-05-2024 Protein Ql (U) 500 mg/dl High Negative [facility] Urine blood detectionOrdered By: Breanne Ruiz on 08-05-2024 Urine Occult Blood 250 /ul High Negative [facility] Urine clarityOrdered By: Prashant Ruiz on 08-05-2024 Clarity (U) Turbid Clear [facility] Urine color determinationOrd ered By: Breanne Ruiz on 08-05-2024 Color (U) Straw Yellow [facility] Urine cultureOrdered By: Prashant Ruiz on 08-05-2024 Bacteria identified Cx Nom (U) Alpha Hemolytic Streptococcus Abnormal [facility] Bacteria identified Cx Nom (U) Klebsiella pneumoniae sp pneum Abnormal [facility] Urine leukocyte esterase det ection by dipstickOrdered By: Breanne Ruiz on 08-05-2024 Leukocyte esterase Test strip Ql (U) 500 /ul High Negative [facility] Urine pHOrdered By: Bhupendra Ruiz on 08-05-2024 pH (U) 6.0 [pH] 5.0 - 8.0 [facility] Urine sediment bacteria coun t by microscopy (number/high power field)Ordered By: Breanne Ruiz on 08-05-2024 Bacteria LM.HPF (Urine sed) [#/Area] 3 /[HPF] None Seen [facility] Urine specific gravity measu rementOrdered By: Breanne Ruiz on 08-05-2024 Specific gravity (U) [Rel density] 1.020 1.002-1.030 [facility] Urobilinogen Ql (U)Ordered B y: Breanne Ruiz on 08-05-2024 Urine Urobilinogen Normal mg/dl Normal [facility] White blood cell countOrdere d By: Breanne Ruiz on 08-05-2024 Urine WBC >100 SEEN /hpf 0-5 [facility] High density lipoprotein (HD L) measurementOrdered By: Breanne Ruiz on 07-09-2024 Cholesterol in HDL [Mass/Vol] 38 mg/dL Low >40 [facility] Comment on above: The drugs N-Acetylcy steine and Metamizole may falsely depress this assay. Reference Range HDL <40 mg/dL Low HDL Cholesterol HDL >or= 60 mg/dL High HDL Cholesterol Low density lipoprotein (LDL ) cholesterol measurementOrdered By: Breanne Ruiz on 07-09-2024 Cholesterol in LDL [Mass/Vol] 41 mg/dL 0-130 [facility] Serum or plasma cholesterol measurement (mass/volume)Ordered By: Breanne Ruiz on 07-09-2024 Cholesterol [Mass/Vol] 143 mg/dL <200 [facility] Comment on above: <200 mg/dL Desirable 200-240 mg/dL Borderline >240 mg/dL High Risk Triglycerides measurementOrd ered By: Breanne Ruiz on 07-09-2024 Triglyceride [Mass/Vol] 321 mg/dL High <199 [facility] Comment on above: The drugs N-Acetylcy steine and Metamizole may falsely depress this assay.Serum Triglycerides Reference Interval Normal <150 mg/dL Borderline high 150 - 199 mg/dL High 200 - 499 mg/dL Very High > or = 500 mg/dL Very low density lipoprotein (VLDL) cholesterol measurementOrdered By: Breanne Ruiz on 07-09-2024 VLDL Cholesterol 64 mg/dL High 5-40 [facility] Hemoglobin A1c percentageOrd ered By: Breanne Ruiz on 06-11-2024 HbA1c (Bld) [Mass fraction] 7.2 % High 3.8-5.6 [facility] Comment on above: Normal < 5.7 % Predi abetic 5.7 - 6.4 % Diabetic >or= 6.5 % Please note range changes. Whole blood hemoglobin A1c/t otal hemoglobin ratio (mass fraction)Ordered By: Breanne Ruiz on 09-05-2023 HbA1c (Bld) [Mass fraction] 6.7 % 3.8-5.6 [facility] Comment on above: Normal < 5.7 % Predi abetic 5.7 - 6.4 % Diabetic >or= 6.5 % Please note range changes. Basophil percentageOrdered B y: Breanne Ruiz on 08-10-2023 Potassium [Moles/Vol] 4.0 mmol/L 3.5-5.1 [facility] Comment on above: Slight Hemolysis, Re sult may be falsely increased. Absolute lymphocyte countOrd ered By: Abbiecanyonchetan Ruiz on 08-08-2023 Lymphocytes Auto (Unsp spec) [#/Vol] 1.44 10*3/uL 0.83-4.51 [facility] Automated lymphocyte count a s percentage of total leukocytesOrdered By: adalbertocanyonchetan Kirklandbeverly on 08-08-2023 Lymphocytes/100 WBC Auto (Unsp spec) 12.7 % 19-41 [facility] Basophil percentageOrdered B y: Breanne Ruiz on 08-08-2023 Basophils/100 WBC (Bld) 1.1 % 0-1 [facility] Bilirubin [Mass/Vol] 0.30 mg/dL 0.20-1.00 [facility] Comment on above: For patients on eltr ombopag therapy, use of Dim[employer] [place] TBIL is not recommended. Chloride [Moles/Vol] 107 mmol/L 98-107 [facility] Eosinophils/100 WBC (Bld) 3.1 % 0-5 [facility] Glucose [Mass/Vol] 153 mg/dL 74-106 [facility] Comment on above: Fasting Glucose resu lt greater than or equal to 126 mg/dL suggests DIABETES MELLITUS per A.D.A. criteria. Hemoglobin (Bld) [Mass/Vol] 14.3 g/dL 12.0-15.0 [facility] Monocytes/100 WBC (Bld) 10.4 % 0-10 [facility] Neutrophils (Bld) [#/Vol] 8.1 10*3/uL 2.0-7.7 [facility] Neutrophils/100 WBC (Bld) 71.8 % 47-70 [facility] Potassium [Moles/Vol] 3.4 mmol/L 3.5-5.1 [facility] Protein [Mass/Vol] 6.9 g/dL 6.4-8.2 [facility] Sodium [Moles/Vol] 141 mmol/L 136-145 [facility] WBC (Bld) [#/Vol] 11.3 10*3/uL 4.4-11.0 [facility] Determination of erythrocyte mean corpuscular volume (MCV)Ordered By: Breanne Ruiz on 08-08-2023 MCV (RBC) [Entitic vol] 88.6 fL 81-99 [facility] Erythrocyte distribution wid th ratioOrdered By: vannessa Ruiz on 08-08-2023 Erythrocyte distribution width (RBC) [Ratio] 14.8 % 11.6-14.6 [facility] Erythrocyte distribution wid th standard deviationOrdered By: adalbertocanyonchetan Ruiz on 08-08-2023 Erythrocyte distribution width (RBC) [Entitic vol] 47.9 fL 35.1-43.9 [facility] Hematocrit Auto (Bld) [Volum e fraction]Ordered By: Breanne Ruiz on 08-08-2023 Hematocrit (Bld) [Volume fraction] 46.7 % 37-47 [facility] Immature granulocytes/100 WB C Auto (Bld)Ordered By: adalbertocanyonchetan Ruiz on 08-08-2023 Immature granulocytes/100 WBC (Bld) 0.900 % 0.0-0.9 [facility] Comment on above: IG% - Immature Granu locytes (promyelocytes, myelocytes and metamyelocytes) > 1% indicates that a LEFT SHIFT is Present. Laboratory - Chemistry and C hemistry - challengeOrdered By: Breanne Ruiz on 08-08-2023 Albumin/Globulin [Mass ratio] 0.9 {ratio} 0.9-2.4 [facility] ALP [Catalytic activity/Vol] 93 U/L 45-117 [facility] ALT [Catalytic activity/Vol] 36 U/L 13-56 [facility] CO2 [Moles/Vol] 26.0 mmol/L 21.0-32.0 [facility] Globulin (S) [Mass/Vol] 3.7 g/dL 2.2-4.2 [facility] Urea nitrogen/Creatinine [Mass ratio] 28.0 mg/mg 10-20 [facility] Laboratory - Hematology and Cell countsOrdered By: Breanne Ruiz on 08-08-2023 MCH (RBC) [Entitic mass] 27.1 pg 27.0-32.0 [facility] MCHC (RBC) [Mass/Vol] 30.6 g/dL 32-36 [facility] Nucleated RBC/100 WBC (Bld) [Ratio] 0 % 0-5 [facility] Platelet mean volume (Bld) [Entitic vol] 9.3 fL 6.2-12.0 [facility] Platelets (Bld) [#/Vol] 535 10*3/uL 150-450 [facility] No Panel InformationOrdered By: Breanne Ruiz on 08-08-2023 Estimated GFR (MDRD) Amer 105 mL/min >60 [facility] Comment on above: GFR Calc Estimated GFR (MDRD) Non-Af Amer 87 mL/min >60 [facility] Comment on above: Non- GFR Calc RBC Auto (Bld) [#/Vol]Ordere d By: Breanne Ruiz on 08-08-2023 RBC (Bld) [#/Vol] 5.27 10*6/uL 4.2-5.4 [facility] Serum or plasma calcium jj urement (mass/volume)Ordered By: Breanne Ruiz on 08-08-2023 Calcium [Mass/Vol] 10.0 mg/dL 8.5-10.1 [facility] Serum or plasma creatinine m easurement (mass/volume)Ordered By: Breanne Ruiz on 08-08-2023 Creatinine [Mass/Vol] 0.71 mg/dL 0.55-1.02 [facility] Comment on above: The validity of the calculated GFR & GFRAA in patients over 70 years has not been determined. Clinical correlation is essential. Serum or plasma urea nitroge n measurement (mass/volume)Ordered By: Breanne Ruiz on 08-08-2023 Urea nitrogen [Mass/Vol] 20 mg/dL 7-18 [facility] Thin prep Papanicolaou smear with manual screeningOrdered By: Breanne Ruiz on 08-08-2023 Thin prep Papanicolaou smear with manual screening 3.2 g/dL 3.2-5.0 [facility] Thin prep Papanicolaou smear with manual screening 31 U/L 15-37 [facility] Thin prep Papanicolaou smear with manual screening 8 5-15 [facility] Basophil percentageOrdered B y: Breanne Ruiz on 07-17-2023 Chloride [Moles/Vol] 109 mmol/L 98-107 [facility] Glucose [Mass/Vol] 150 mg/dL 74-106 [facility] Comment on above: Fasting Glucose resu lt greater than or equal to 126 mg/dL suggests DIABETES MELLITUS per A.D.A. criteria. Potassium [Moles/Vol] 3.8 mmol/L 3.5-5.1 [facility] Sodium [Moles/Vol] 143 mmol/L 136-145 [facility] Laboratory - Chemistry and C hemistry - challengeOrdered By: Breanne Ruiz on 07-17-2023 CO2 [Moles/Vol] 24.0 mmol/L 21.0-32.0 [facility] Urea nitrogen/Creatinine [Mass ratio] 31.3 mg/mg 10-20 [facility] No Panel InformationOrdered By: Breanne Ruiz on 07-17-2023 Estimated GFR (MDRD) Amer 114 mL/min >60 [facility] Comment on above: GFR Calc Estimated GFR (MDRD) Non-Af Amer 94 mL/min >60 [facility] Comment on above: Non- GFR Calc Serum or plasma calcium jj urement (mass/volume)Ordered By: Breanne Ruiz on 07-17-2023 Calcium [Mass/Vol] 9.6 mg/dL 8.5-10.1 [facility] Serum or plasma creatinine m easurement (mass/volume)Ordered By: Breanne Ruiz on 07-17-2023 Creatinine [Mass/Vol] 0.67 mg/dL 0.55-1.02 [facility] Comment on above: The validity of the calculated GFR & GFRAA in patients over 70 years has not been determined. Clinical correlation is essential. Serum or plasma urea nitroge n measurement (mass/volume)Ordered By: Breanne Ruiz on 07-17-2023 Urea nitrogen [Mass/Vol] 21 mg/dL 7-18 [facility] Thin prep Papanicolaou smear with manual screeningOrdered By: Breanne Ruiz on 07-17-2023 Thin prep Papanicolaou smear with manual screening 10 5-15 [facility] Basophil percentageOrdered B y: Breanne Ruiz on 07-03-2023 Chloride [Moles/Vol] 109 mmol/L 98-107 [facility] Glucose [Mass/Vol] 156 mg/dL 74-106 [facility] Comment on above: Fasting Glucose resu lt greater than or equal to 126 mg/dL suggests DIABETES MELLITUS per A.D.A. criteria. Potassium [Moles/Vol] 3.5 mmol/L 3.5-5.1 [facility] Comment on above: Slight Hemolysis, Re sult may be falsely increased. Sodium [Moles/Vol] 141 mmol/L 136-145 [facility] Laboratory - Chemistry and C hemistry - challengeOrdered By: Breanne Ruiz on 07-03-2023 CO2 [Moles/Vol] 25.0 mmol/L 21.0-32.0 [facility] Urea nitrogen/Creatinine [Mass ratio] 29.4 mg/mg 10-20 [facility] No Panel InformationOrdered By: Breanne Ruiz on 07-03-2023 Estimated GFR (MDRD) Amer 111 mL/min >60 [facility] Comment on above: GFR Calc Estimated GFR (MDRD) Non-Af Amer 92 mL/min >60 [facility] Comment on above: Non- GFR Calc Serum or plasma calcium jj urement (mass/volume)Ordered By: Breanne Ruiz on 07-03-2023 Calcium [Mass/Vol] 9.8 mg/dL 8.5-10.1 [facility] Serum or plasma creatinine m easurement (mass/volume)Ordered By: Breanne Ruiz on 07-03-2023 Creatinine [Mass/Vol] 0.68 mg/dL 0.55-1.02 [facility] Comment on above: The validity of the calculated GFR & GFRAA in patients over 70 years has not been determined. Clinical correlation is essential. Serum or plasma urea nitroge n measurement (mass/volume)Ordered By: Breanne Vangbeverly on 07-03-2023 Urea nitrogen [Mass/Vol] 20 mg/dL 7-18 [facility] Thin prep Papanicolaou smear with manual screeningOrdered By: Breanne Ruiz on 07-03-2023 Thin prep Papanicolaou smear with manual screening 7 5-15 [facility] Whole blood hemoglobin A1c/t otal hemoglobin ratio (mass fraction)Ordered By: Rufinochetan Kirklandmichaelbeverly on 06-06-2023 HbA1c (Bld) [Mass fraction] 7.5 % 3.8-5.6 [facility] Comment on above: Normal < 5.7 % Predi abetic 5.7 - 6.4 % Diabetic >or= 6.5 % Please note range changes. Absolute lymphocyte countOrd ered By: Breanne Ruiz on 05-09-2023 Lymphocytes Auto (Unsp spec) [#/Vol] 1.09 10*3/uL 0.83-4.51 [facility] Basophil percentageOrdered B y: Breanne Isaelmichaelbeverly on 05-09-2023 Basophils/100 WBC (Bld) 1.2 % 0-1 [facility] Bilirubin [Mass/Vol] 0.30 mg/dL 0.20-1.00 [facility] Comment on above: For patients on eltr ombopag therapy, use of Dimension [place] TBIL is not recommended. Chloride [Moles/Vol] 107 mmol/L 98-107 [facility] Eosinophils/100 WBC (Bld) 2.8 % 0-5 [facility] Glucose [Mass/Vol] 203 mg/dL 74-106 [facility] Comment on above: Glucose result great er than or equal to 200 mg/dLsuggests DIABETES MELLITUS per A.D.A. criteria. Neutrophils (Bld) [#/Vol] 5.5 10*3/uL 2.0-7.7 [facility] Neutrophils/100 WBC (Bld) 68.1 % 47-70 [facility] Potassium [Moles/Vol] 4.0 mmol/L 3.5-5.1 [facility] Protein [Mass/Vol] 7.0 g/dL 6.4-8.2 [facility] Sodium [Moles/Vol] 140 mmol/L 136-145 [facility] WBC (Bld) [#/Vol] 8.1 10*3/uL 4.4-11.0 [facility] Blood erythrocytes count (nu mber/volume)Ordered By: Breanne Ruiz on 05-09-2023 RBC (Bld) [#/Vol] 5.62 10*6/uL 4.2-5.4 [facility] Blood hemoglobin measurement (mass/volume)Ordered By: Breanne Ruiz on 05-09-2023 Hemoglobin (Bld) [Mass/Vol] 14.7 g/dL 12.0-15.0 [facility] Blood lymphocytes/100 leukoc ytesOrdered By: adalbertocanyonchetan Ruiz on 05-09-2023 Lymphocytes/100 WBC (Bld) 13.4 % 19-41 [facility] Blood monocytes/100 leukocyt esOrdered By: adalbertocanyonchetan Ruiz on 05-09-2023 Monocytes/100 WBC (Bld) 13.8 % 0-10 [facility] Blood platelet mean volumeOr dered By: vannessa Ruiz on 05-09-2023 Platelet mean volume (Bld) [Entitic vol] 9.6 fL 6.2-12.0 [facility] Determination of erythrocyte mean corpuscular volume (MCV)Ordered By: Breanne Ruiz on 05-09-2023 MCV (RBC) [Entitic vol] 88.1 fL 81-99 [facility] Hematocrit Auto (Bld) [Volum e fraction]Ordered By: Breanne Ruiz on 05-09-2023 Hematocrit (Bld) [Volume fraction] 49.5 % 37-47 [facility] Laboratory - Chemistry and C hemistry - challengeOrdered By: Breanne Ruiz on 05-09-2023 ALP [Catalytic activity/Vol] 111 U/L 45-117 [facility] ALT [Catalytic activity/Vol] 57 U/L 13-56 [facility] CO2 [Moles/Vol] 25.0 mmol/L 21.0-32.0 [facility] Globulin (S) [Mass/Vol] 3.7 g/dL 2.2-4.2 [facility] Urea nitrogen/Creatinine [Mass ratio] 38.0 mg/mg 10-20 [facility] Laboratory - Hematology and Cell countsOrdered By: Breanne Ruiz on 05-09-2023 Erythrocyte distribution width (RBC) [Entitic vol] 49.4 fL 35.1-43.9 [facility] Erythrocyte distribution width (RBC) [Ratio] 15.6 % 11.6-14.6 [facility] Immature granulocytes/100 WBC (Bld) 0.700 % 0.0-0.9 [facility] Comment on above: IG% - Immature Granu locytes (promyelocytes, myelocytes and metamyelocytes) > 1% indicates that a LEFT SHIFT is Present. MCH (RBC) [Entitic mass] 26.2 pg 27.0-32.0 [facility] Nucleated RBC/100 WBC (Bld) [Ratio] 0 % 0-5 [facility] MCHC Auto (RBC) [Mass/Vol]Or dered By: Breanne Ruiz on 05-09-2023 MCHC (RBC) [Mass/Vol] 29.7 g/dL 32-36 [facility] No Panel InformationOrdered By: Breanne Ruiz on 05-09-2023 Estimated GFR (MDRD) Amer 111 mL/min >60 [facility] Comment on above: GFR Calc Estimated GFR (MDRD) Non-Af Amer 92 mL/min >60 [facility] Comment on above: Non- GFR Calc Platelets bldOrdered By: Prashant Ruiz on 05-09-2023 Platelets (Bld) [#/Vol] 553 10*3/uL 150-450 [facility] Serum or plasma albumin jj urement (mass/volume)Ordered By: Breanne Ruiz on 05-09-2023 Albumin [Mass/Vol] 3.3 g/dL 3.2-5.0 [facility] Serum or plasma albumin/glob ulin mass ratioOrdered By: Breanne Ruiz on 05-09-2023 Albumin/Globulin [Mass ratio] 0.9 {ratio} 0.9-2.4 [facility] Serum or plasma calcium jj urement (mass/volume)Ordered By: Breanne Ruiz on 05-09-2023 Calcium [Mass/Vol] 9.6 mg/dL 8.5-10.1 [facility] Serum or plasma creatinine m easurement (mass/volume)Ordered By: Breanne Ruiz on 05-09-2023 Creatinine [Mass/Vol] 0.68 mg/dL 0.55-1.02 [facility] Comment on above: The validity of the calculated GFR & GFRAA in patients over 70 years has not been determined. Clinical correlation is essential. Serum or plasma urea nitroge n measurement (mass/volume)Ordered By: Breanne Ruiz on 05-09-2023 Urea nitrogen [Mass/Vol] 26 mg/dL 7-18 [facility] Thin prep Papanicolaou smear with manual screeningOrdered By: vannessa Ruiz on 05-09-2023 Thin prep Papanicolaou smear with manual screening 37 U/L 15-37 [facility] Thin prep Papanicolaou smear with manual screening 8 5-15 [facility] Clostridium difficile detect ion by polymerase chain reactionOrdered By: Breanne Ruiz on 02-23-2023 C. difficile DNA MAGALIE+probe Ql (Unsp spec) [facility] Clostridium difficile detect ion by polymerase chain reactionOrdered By: Breanne Ruiz on 02-22-2023 C. difficile DNA MAGALIE+probe Ql (Unsp spec) [facility] Absolute lymphocyte countOrd ered By: Britney Worthington on 02-21-2023 Lymphocytes Auto (Unsp spec) [#/Vol] 0.97 10*3/uL 0.83-4.51 [facility] Basophil percentageOrdered B y: Britney Worthington on 02-21-2023 Basophils/100 WBC (Bld) 1.2 % 0-1 [facility] Chloride [Moles/Vol] 108 mmol/L 98-107 [facility] Eosinophils/100 WBC (Bld) 4.4 % 0-5 [facility] Glucose [Mass/Vol] 178 mg/dL 74-106 [facility] Comment on above: Fasting Glucose resu lt greater than or equal to 126 mg/dL suggests DIABETES MELLITUS per A.D.A. criteria. Neutrophils (Bld) [#/Vol] 8.1 10*3/uL 2.0-7.7 [facility] Neutrophils/100 WBC (Bld) 74.9 % 47-70 [facility] Potassium [Moles/Vol] 3.7 mmol/L 3.5-5.1 [facility] Sodium [Moles/Vol] 140 mmol/L 136-145 [facility] WBC (Bld) [#/Vol] 10.8 10*3/uL 4.4-11.0 [facility] Blood erythrocytes count (nu mber/volume)Ordered By: Britney Worthington on 02-21-2023 RBC (Bld) [#/Vol] 5.06 10*6/uL 4.2-5.4 [facility] Blood hemoglobin measurement (mass/volume)Ordered By: Britney Worthington on 02-21-2023 Hemoglobin (Bld) [Mass/Vol] 13.3 g/dL 12.0-15.0 [facility] Blood lymphocytes/100 leukoc ytesOrdered By: Britney Worthington on 02-21-2023 Lymphocytes/100 WBC (Bld) 9.0 % 19-41 [facility] Blood monocytes/100 leukocyt esOrdered By: Britney Worthington on 02-21-2023 Monocytes/100 WBC (Bld) 9.8 % 0-10 [facility] Blood platelet mean volumeOr dered By: Britney Worthington on 02-21-2023 Platelet mean volume (Bld) [Entitic vol] 9.2 fL 6.2-12.0 [facility] Determination of erythrocyte mean corpuscular volume (MCV)Ordered By: Britney Worthington on 02-21-2023 MCV (RBC) [Entitic vol] 89.5 fL 81-99 [facility] Hematocrit Auto (Bld) [Volum e fraction]Ordered By: Britney Worthington on 02-21-2023 Hematocrit (Bld) [Volume fraction] 45.3 % 37-47 [facility] Laboratory - Chemistry and C hemistry - challengeOrdered By: Britney Worthington on 02-21-2023 CO2 [Moles/Vol] 24.0 mmol/L 21.0-32.0 [facility] Urea nitrogen/Creatinine [Mass ratio] 37.7 mg/mg 10-20 [facility] Laboratory - Hematology and Cell countsOrdered By: Britney Worthington on 02-21-2023 Erythrocyte distribution width (RBC) [Entitic vol] 47.6 fL 35.1-43.9 [facility] Erythrocyte distribution width (RBC) [Ratio] 14.5 % 11.6-14.6 [facility] Immature granulocytes/100 WBC (Bld) 0.700 % 0.0-0.9 [facility] Comment on above: IG% - Immature Granu locytes (promyelocytes, myelocytes and metamyelocytes) > 1% indicates that a LEFT SHIFT is Present. MCH (RBC) [Entitic mass] 26.3 pg 27.0-32.0 [facility] Nucleated RBC/100 WBC (Bld) [Ratio] 0 % 0-5 [facility] MCHC Auto (RBC) [Mass/Vol]Or dered By: Britney Worthington on 02-21-2023 MCHC (RBC) [Mass/Vol] 29.4 g/dL 32-36 [facility] No Panel InformationOrdered By: Britney Worthington on 02-21-2023 Estimated GFR (MDRD) Amer 105 mL/min >60 [facility] Comment on above: GFR Calc Estimated GFR (MDRD) Non-Af Amer 87 mL/min >60 [facility] Comment on above: Non- GFR Calc Platelets bldOrdered By: Phillip Worthington on 02-21-2023 Platelets (Bld) [#/Vol] 500 10*3/uL 150-450 [facility] Serum or plasma calcium jj urement (mass/volume)Ordered By: Britney Worthington on 02-21-2023 Calcium [Mass/Vol] 9.1 mg/dL 8.5-10.1 [facility] Serum or plasma creatinine m easurement (mass/volume)Ordered By: Britney Worthington on 02-21-2023 Creatinine [Mass/Vol] 0.72 mg/dL 0.55-1.02 [facility] Comment on above: The validity of the calculated GFR & GFRAA in patients over 70 years has not been determined. Clinical correlation is essential. Serum or plasma urea nitroge n measurement (mass/volume)Ordered By: Britney Worthington on 02-21-2023 Urea nitrogen [Mass/Vol] 27 mg/dL 7-18 [facility] Thin prep Papanicolaou smear with manual screeningOrdered By: Britney Worthington on 02-21-2023 Thin prep Papanicolaou smear with manual screening 8 5-15 [facility] Bilirubin Test strip Ql (U)O rdered By: Breanne Ruiz on 02-13-2023 Bilirubin Ql (U) Negative Negative [facility] Culture, urineOrdered By: Elio Ruiz on 02-13-2023 Bacteria identified Cx Nom (U) Escherichia coli [facility] Ketones Test strip Ql (U)Ord ered By: Breanne Ruiz on 02-13-2023 Ketones Ql (U) 5 mg/dl Negative [facility] Nitrite Test strip Ql (U)Ord ered By: Breanne Ruiz on 02-13-2023 Nitrite Ql (U) Positive Negative [facility] Protein Test strip Ql (U)Ord ered By: Breanne Ruiz on 02-13-2023 Protein Ql (U) 30 mg/dl Negative [facility] Urine blood detectionOrdered By: Breanne Ruiz on 02-13-2023 RBC Ql (U) 250 /ul Negative [facility] Urine clarityOrdered By: Prashant Ruiz on 02-13-2023 Clarity (U) Cloudy Clear [facility] Urine color determinationOrd ered By: Breanne Ruiz on 02-13-2023 Color (U) Brown Yellow [facility] Urine glucose detectionOrder ed By: Breanne Ruiz on 02-13-2023 Glucose Ql (U) Normal mg/dl Normal [facility] Urine leukocyte esterase det ection by dipstickOrdered By: Breanne Ruiz on 02-13-2023 Leukocyte esterase Test strip Ql (U) 25 /ul Negative [facility] Urine pHOrdered By: Bhupendra Ruiz on 02-13-2023 pH (U) 5.0 [pH] 5.0 - 8.0 [facility] Urine specific gravity measu rementOrdered By: Abbielalitachetan Kirklandmichaelbeverly on 02-13-2023 Specific gravity (U) [Rel density] 1.025 1.002-1.030 [facility] Urobilinogen Auto test strip Ql (U)Ordered By: Elioadalbertolalitachetan Kirklandmichaelbeverly on 02-13-2023 Urobilinogen Ql (U) 1 mg/dl Normal [facility] Absolute lymphocyte countOrd ered By: vannessa Ruiz on 02-07-2023 Lymphocytes Auto (Unsp spec) [#/Vol] 0.94 10*3/uL 0.83-4.51 [facility] Basophil percentageOrdered B y: Elioadalbertolalitachetan Kirklandbeverly on 02-07-2023 Basophils/100 WBC (Bld) 1.1 % 0-1 [facility] Chloride [Moles/Vol] 110 mmol/L 98-107 [facility] Eosinophils/100 WBC (Bld) 5.5 % 0-5 [facility] Glucose [Mass/Vol] 160 mg/dL 74-106 [facility] Comment on above: Fasting Glucose resu lt greater than or equal to 126 mg/dL suggests DIABETES MELLITUS per A.D.A. criteria. Neutrophils (Bld) [#/Vol] 6.3 10*3/uL 2.0-7.7 [facility] Neutrophils/100 WBC (Bld) 70.8 % 47-70 [facility] Potassium [Moles/Vol] 3.9 mmol/L 3.5-5.1 [facility] Sodium [Moles/Vol] 141 mmol/L 136-145 [facility] WBC (Bld) [#/Vol] 9.0 10*3/uL 4.4-11.0 [facility] Blood erythrocytes count (nu mber/volume)Ordered By: Breanne Ruiz on 02-07-2023 RBC (Bld) [#/Vol] 4.98 10*6/uL 4.2-5.4 [facility] Blood hemoglobin measurement (mass/volume)Ordered By: Breanne Ruiz on 02-07-2023 Hemoglobin (Bld) [Mass/Vol] 13.3 g/dL 12.0-15.0 [facility] Blood lymphocytes/100 leukoc ytesOrdered By: Breanne Ruiz on 02-07-2023 Lymphocytes/100 WBC (Bld) 10.5 % 19-41 [facility] Blood monocytes/100 leukocyt esOrdered By: Breanne Ruiz on 02-07-2023 Monocytes/100 WBC (Bld) 11.1 % 0-10 [facility] Blood platelet mean volumeOr dered By: Breanne Ruiz on 02-07-2023 Platelet mean volume (Bld) [Entitic vol] 9.0 fL 6.2-12.0 [facility] Determination of erythrocyte mean corpuscular volume (MCV)Ordered By: Breanne Ruiz on 02-07-2023 MCV (RBC) [Entitic vol] 88.8 fL 81-99 [facility] Hematocrit Auto (Bld) [Volum e fraction]Ordered By: Brenane Ruiz on 02-07-2023 Hematocrit (Bld) [Volume fraction] 44.2 % 37-47 [facility] Laboratory - Chemistry and C hemistry - challengeOrdered By: adalbertocanyonchetan Ruiz on 02-07-2023 CO2 [Moles/Vol] 24.0 mmol/L 21.0-32.0 [facility] Urea nitrogen/Creatinine [Mass ratio] 37.3 mg/mg 10-20 [facility] Laboratory - Hematology and Cell countsOrdered By: Breanne Ruiz on 02-07-2023 Erythrocyte distribution width (RBC) [Entitic vol] 47.9 fL 35.1-43.9 [facility] Erythrocyte distribution width (RBC) [Ratio] 14.6 % 11.6-14.6 [facility] Immature granulocytes/100 WBC (Bld) 1.000 % 0.0-0.9 [facility] Comment on above: IG% - Immature Granu locytes (promyelocytes, myelocytes and metamyelocytes) > 1% indicates that a LEFT SHIFT is Present. MCH (RBC) [Entitic mass] 26.7 pg 27.0-32.0 [facility] Nucleated RBC/100 WBC (Bld) [Ratio] 0 % 0-5 [facility] MCHC Auto (RBC) [Mass/Vol]Or dered By: Breanne Ruiz on 02-07-2023 MCHC (RBC) [Mass/Vol] 30.1 g/dL 32-36 [facility] No Panel InformationOrdered By: Breanne Ruiz on 02-07-2023 Estimated GFR (MDRD) Amer 132 mL/min >60 [facility] Comment on above: GFR Calc Estimated GFR (MDRD) Non-Af Amer 109 mL/min >60 [facility] Comment on above: Non- GFR Calc Platelets bldOrdered By: Prashant Ruiz on 02-07-2023 Platelets (Bld) [#/Vol] 478 10*3/uL 150-450 [facility] Serum or plasma calcium jj urement (mass/volume)Ordered By: Breanne Ruiz on 02-07-2023 Calcium [Mass/Vol] 8.9 mg/dL 8.5-10.1 [facility] Serum or plasma creatinine m easurement (mass/volume)Ordered By: Breanne Ruiz on 02-07-2023 Creatinine [Mass/Vol] 0.59 mg/dL 0.55-1.02 [facility] Comment on above: The validity of the calculated GFR & GFRAA in patients over 70 years has not been determined. Clinical correlation is essential. Serum or plasma urea nitroge n measurement (mass/volume)Ordered By: Breanne Ruiz on 02-07-2023 Urea nitrogen [Mass/Vol] 22 mg/dL 7-18 [facility] Thin prep Papanicolaou smear with manual screeningOrdered By: Breanne Ruiz on 02-07-2023 Thin prep Papanicolaou smear with manual screening 7 5-15 [facility] Absolute lymphocyte countOrd ered By: Britney Worthington on 01-24-2023 Lymphocytes Auto (Unsp spec) [#/Vol] 0.89 10*3/uL 0.83-4.51 [facility] Basophil percentageOrdered B y: Britney Worthington on 01-24-2023 Basophils/100 WBC (Bld) 1.1 % 0-1 [facility] Chloride [Moles/Vol] 108 mmol/L 98-107 [facility] Eosinophils/100 WBC (Bld) 5.0 % 0-5 [facility] Glucose [Mass/Vol] 141 mg/dL 74-106 [facility] Comment on above: Fasting Glucose resu lt greater than or equal to 126 mg/dL suggests DIABETES MELLITUS per A.D.A. criteria. Neutrophils (Bld) [#/Vol] 5.9 10*3/uL 2.0-7.7 [facility] Neutrophils/100 WBC (Bld) 71.4 % 47-70 [facility] Potassium [Moles/Vol] 3.9 mmol/L 3.5-5.1 [facility] Sodium [Moles/Vol] 140 mmol/L 136-145 [facility] [facility] WBC (Bld) [#/Vol] 8.2 10*3/uL 4.4-11.0 [facility] Blood erythrocytes count (nu mber/volume)Ordered By: Britney Worthington on 01-24-2023 RBC (Bld) [#/Vol] 4.81 10*6/uL 4.2-5.4 [facility] Blood hemoglobin measurement (mass/volume)Ordered By: Britney Worthington on 01-24-2023 Hemoglobin (Bld) [Mass/Vol] 12.8 g/dL 12.0-15.0 [facility] Blood lymphocytes/100 leukoc ytesOrdered By: Brtiney Worthington on 01-24-2023 Lymphocytes/100 WBC (Bld) 10.9 % 19-41 [facility] Blood monocytes/100 leukocyt esOrdered By: Britney Worthington on 01-24-2023 Monocytes/100 WBC (Bld) 11.0 % 0-10 [facility] Blood platelet mean volumeOr dered By: Britney Worthington on 01-24-2023 Platelet mean volume (Bld) [Entitic vol] 9.0 fL 6.2-12.0 [facility] Determination of erythrocyte mean corpuscular volume (MCV)Ordered By: Britney Worthington on 01-24-2023 MCV (RBC) [Entitic vol] 88.8 fL 81-99 [facility] Hematocrit Auto (Bld) [Volum e fraction]Ordered By: Britney Worthington on 01-24-2023 Hematocrit (Bld) [Volume fraction] 42.7 % 37-47 [facility] Laboratory - Chemistry and C hemistry - challengeOrdered By: Britney Worthington on 01-24-2023 CO2 [Moles/Vol] 25.0 mmol/L 21.0-32.0 [facility] Urea nitrogen/Creatinine [Mass ratio] 33.7 mg/mg 10-20 [facility] Laboratory - Hematology and Cell countsOrdered By: Britney Worthington on 01-24-2023 Erythrocyte distribution width (RBC) [Entitic vol] 48.3 fL 35.1-43.9 [facility] Erythrocyte distribution width (RBC) [Ratio] 14.8 % 11.6-14.6 [facility] Immature granulocytes/100 WBC (Bld) 0.600 % 0.0-0.9 [facility] Comment on above: IG% - Immature Granu locytes (promyelocytes, myelocytes and metamyelocytes) > 1% indicates that a LEFT SHIFT is Present. MCH (RBC) [Entitic mass] 26.6 pg 27.0-32.0 [facility] Nucleated RBC/100 WBC (Bld) [Ratio] 0 % 0-5 [facility] MCHC Auto (RBC) [Mass/Vol]Or dered By: Britney Worthington on 01-24-2023 MCHC (RBC) [Mass/Vol] 30.0 g/dL 32-36 [facility] No Panel InformationOrdered By: Britney Worthington on 01-24-2023 Estimated GFR (MDRD) Amer 131 mL/min >60 [facility] Comment on above: GFR Calc Estimated GFR (MDRD) Non-Af Amer 108 mL/min >60 [facility] Comment on above: Non- GFR Calc Platelets bldOrdered By: Phillip Worthington on 01-24-2023 Platelets (Bld) [#/Vol] 479 10*3/uL 150-450 [facility] Serum or plasma calcium jj urement (mass/volume)Ordered By: Britney Worthington on 01-24-2023 Calcium [Mass/Vol] 8.9 mg/dL 8.5-10.1 [facility] Serum or plasma creatinine m easurement (mass/volume)Ordered By: Britney Worthington on 01-24-2023 Creatinine [Mass/Vol] 0.59 mg/dL 0.55-1.02 [facility] Comment on above: The validity of the calculated GFR & GFRAA in patients over 70 years has not been determined. Clinical correlation is essential. Serum or plasma urea nitroge n measurement (mass/volume)Ordered By: Britney Worthington on 01-24-2023 Urea nitrogen [Mass/Vol] 20 mg/dL 7-18 [facility] Thin prep Papanicolaou smear with manual screeningOrdered By: Britney Worthington on 01-24-2023 Thin prep Papanicolaou smear with manual screening 7 5-15 [facility] Absolute lymphocyte countOrd ered By: Breanne Ruiz on 01-10-2023 Lymphocytes Auto (Unsp spec) [#/Vol] 0.84 10*3/uL 0.83-4.51 [facility] Basophil percentageOrdered B y: Breanne Ruiz on 01-10-2023 Basophils/100 WBC (Bld) 1.0 % 0-1 [facility] Chloride [Moles/Vol] 109 mmol/L 98-107 [facility] Eosinophils/100 WBC (Bld) 4.6 % 0-5 [facility] Glucose [Mass/Vol] 147 mg/dL 74-106 [facility] Comment on above: Fasting Glucose resu lt greater than or equal to 126 mg/dL suggests DIABETES MELLITUS per A.D.A. criteria. Neutrophils (Bld) [#/Vol] 7.2 10*3/uL 2.0-7.7 [facility] Neutrophils/100 WBC (Bld) 74.5 % 47-70 [facility] Potassium [Moles/Vol] 3.9 mmol/L 3.5-5.1 [facility] Sodium [Moles/Vol] 140 mmol/L 136-145 [facility] WBC (Bld) [#/Vol] 9.7 10*3/uL 4.4-11.0 [facility] Blood erythrocytes count (nu mber/volume)Ordered By: Breanne Ruiz on 01-10-2023 RBC (Bld) [#/Vol] 4.98 10*6/uL 4.2-5.4 [facility] Blood hemoglobin measurement (mass/volume)Ordered By: Breanne Ruiz on 01-10-2023 Hemoglobin (Bld) [Mass/Vol] 13.4 g/dL 12.0-15.0 [facility] Blood lymphocytes/100 leukoc ytesOrdered By: Breanne Ruiz on 01-10-2023 Lymphocytes/100 WBC (Bld) 8.7 % 19-41 [facility] Blood monocytes/100 leukocyt esOrdered By: vannessa Ruiz on 01-10-2023 Monocytes/100 WBC (Bld) 10.3 % 0-10 [facility] Blood platelet mean volumeOr dered By: Breanne Ruiz on 01-10-2023 Platelet mean volume (Bld) [Entitic vol] 8.8 fL 6.2-12.0 [facility] Determination of erythrocyte mean corpuscular volume (MCV)Ordered By: Breanne Ruiz on 01-10-2023 MCV (RBC) [Entitic vol] 86.5 fL 81-99 [facility] Hematocrit Auto (Bld) [Volum e fraction]Ordered By: vannessa Ruiz on 01-10-2023 Hematocrit (Bld) [Volume fraction] 43.1 % 37-47 [facility] Laboratory - Chemistry and C hemistry - challengeOrdered By: Breanne Ruiz on 01-10-2023 CO2 [Moles/Vol] 24.0 mmol/L 21.0-32.0 [facility] Urea nitrogen/Creatinine [Mass ratio] 36.1 mg/mg 10-20 [facility] Laboratory - Hematology and Cell countsOrdered By: Breanne Ruiz on 01-10-2023 Erythrocyte distribution width (RBC) [Entitic vol] 48.4 fL 35.1-43.9 [facility] Erythrocyte distribution width (RBC) [Ratio] 15.3 % 11.6-14.6 [facility] Immature granulocytes/100 WBC (Bld) 0.900 % 0.0-0.9 [facility] Comment on above: IG% - Immature Granu locytes (promyelocytes, myelocytes and metamyelocytes) > 1% indicates that a LEFT SHIFT is Present. MCH (RBC) [Entitic mass] 26.9 pg 27.0-32.0 [facility] Nucleated RBC/100 WBC (Bld) [Ratio] 0 % 0-5 [facility] MCHC Auto (RBC) [Mass/Vol]Or dered By: Breanne Ruiz on 01-10-2023 MCHC (RBC) [Mass/Vol] 31.1 g/dL 32-36 [facility] No Panel InformationOrdered By: Breanne Ruiz on 01-10-2023 Estimated GFR (MDRD) Amer 121 mL/min >60 [facility] Comment on above: GFR Calc Estimated GFR (MDRD) Non-Af Amer 100 mL/min >60 [facility] Comment on above: Non- GFR Calc Platelets bldOrdered By: Prashant Ruiz on 01-10-2023 Platelets (Bld) [#/Vol] 513 10*3/uL 150-450 [facility] Serum or plasma calcium jj urement (mass/volume)Ordered By: Breanne Ruiz on 01-10-2023 Calcium [Mass/Vol] 9.2 mg/dL 8.5-10.1 [facility] Serum or plasma creatinine m easurement (mass/volume)Ordered By: Breanne Ruiz on 01-10-2023 Creatinine [Mass/Vol] 0.64 mg/dL 0.55-1.02 [facility] Comment on above: The validity of the calculated GFR & GFRAA in patients over 70 years has not been determined. Clinical correlation is essential. Serum or plasma urea nitroge n measurement (mass/volume)Ordered By: Breanne Ruiz on 01-10-2023 Urea nitrogen [Mass/Vol] 23 mg/dL 7-18 [facility] Thin prep Papanicolaou smear with manual screeningOrdered By: Breanne Ruiz on 01-10-2023 Thin prep Papanicolaou smear with manual screening 7 5-15 [facility] Absolute lymphocyte countOrd ered By: Breanne Ruiz on 12-27-2022 Lymphocytes Auto (Unsp spec) [#/Vol] 0.84 10*3/uL 0.83-4.51 [facility] Basophil percentageOrdered B y: Breanne Ruiz on 12-27-2022 Basophils/100 WBC (Bld) 1.3 % 0-1 [facility] Chloride [Moles/Vol] 108 mmol/L 98-107 [facility] Eosinophils/100 WBC (Bld) 4.3 % 0-5 [facility] Glucose [Mass/Vol] 178 mg/dL 74-106 [facility] Comment on above: Fasting Glucose resu lt greater than or equal to 126 mg/dL suggests DIABETES MELLITUS per A.D.A. criteria. Neutrophils (Bld) [#/Vol] 6.8 10*3/uL 2.0-7.7 [facility] Neutrophils/100 WBC (Bld) 73.8 % 47-70 [facility] Potassium [Moles/Vol] 3.9 mmol/L 3.5-5.1 [facility] Sodium [Moles/Vol] 138 mmol/L 136-145 [facility] WBC (Bld) [#/Vol] 9.3 10*3/uL 4.4-11.0 [facility] Blood erythrocytes count (nu mber/volume)Ordered By: Breanne Ruiz on 12-27-2022 RBC (Bld) [#/Vol] 4.96 10*6/uL 4.2-5.4 [facility] Blood hemoglobin measurement (mass/volume)Ordered By: Breanne Ruiz on 12-27-2022 Hemoglobin (Bld) [Mass/Vol] 13.1 g/dL 12.0-15.0 [facility] Blood lymphocytes/100 leukoc ytesOrdered By: Breanne Ruiz on 12-27-2022 Lymphocytes/100 WBC (Bld) 9.1 % 19-41 [facility] Blood monocytes/100 leukocyt esOrdered By: Efadalbertoongchetan Ruiz on 12-27-2022 Monocytes/100 WBC (Bld) 10.9 % 0-10 [facility] Blood platelet mean volumeOr dered By: Breanne Ruiz on 12-27-2022 Platelet mean volume (Bld) [Entitic vol] 8.9 fL 6.2-12.0 [facility] Determination of erythrocyte mean corpuscular volume (MCV)Ordered By: Breanne Ruiz on 12-27-2022 MCV (RBC) [Entitic vol] 88.9 fL 81-99 [facility] Hematocrit Auto (Bld) [Volum e fraction]Ordered By: Breanne Ruiz on 12-27-2022 Hematocrit (Bld) [Volume fraction] 44.1 % 37-47 [facility] Laboratory - Chemistry and C hemistry - challengeOrdered By: Breanne Ruiz on 12-27-2022 CO2 [Moles/Vol] 24.0 mmol/L 21.0-32.0 [facility] Urea nitrogen/Creatinine [Mass ratio] 32.3 mg/mg 10-20 [facility] Laboratory - Hematology and Cell countsOrdered By: Breanne Ruiz on 12-27-2022 Erythrocyte distribution width (RBC) [Entitic vol] 50.8 fL 35.1-43.9 [facility] Erythrocyte distribution width (RBC) [Ratio] 15.7 % 11.6-14.6 [facility] Immature granulocytes/100 WBC (Bld) 0.600 % 0.0-0.9 [facility] Comment on above: IG% - Immature Granu locytes (promyelocytes, myelocytes and metamyelocytes) > 1% indicates that a LEFT SHIFT is Present. MCH (RBC) [Entitic mass] 26.4 pg 27.0-32.0 [facility] Nucleated RBC/100 WBC (Bld) [Ratio] 0 % 0-5 [facility] MCHC Auto (RBC) [Mass/Vol]Or dered By: Breanne Ruiz on 12-27-2022 MCHC (RBC) [Mass/Vol] 29.7 g/dL 32-36 [facility] No Panel InformationOrdered By: Breanne Ruiz on 12-27-2022 Estimated GFR (MDRD) Amer 101 mL/min >60 [facility] Comment on above: GFR Calc Estimated GFR (MDRD) Non-Af Amer 84 mL/min >60 [facility] Comment on above: Non- GFR Calc Platelets bldOrdered By: Prashant Ruiz on 12-27-2022 Platelets (Bld) [#/Vol] 491 10*3/uL 150-450 [facility] Serum or plasma calcium jj urement (mass/volume)Ordered By: Breanne Ruiz on 12-27-2022 Calcium [Mass/Vol] 9.3 mg/dL 8.5-10.1 [facility] Serum or plasma creatinine m easurement (mass/volume)Ordered By: Breanne Isaelhussain on 12-27-2022 Creatinine [Mass/Vol] 0.74 mg/dL 0.55-1.02 [facility] Comment on above: The validity of the calculated GFR & GFRAA in patients over 70 years has not been determined. Clinical correlation is essential. Serum or plasma urea nitroge n measurement (mass/volume)Ordered By: Breanne Ruiz on 12-27-2022 Urea nitrogen [Mass/Vol] 24 mg/dL 7-18 [facility] Thin prep Papanicolaou smear with manual screeningOrdered By: [facility] on 12-27-2022 Thin prep Papanicolaou smear with manual screening 6 5-15 [facility] Absolute lymphocyte countOrd ered By: [facility] Kirklandbeverly on 12-13-2022 Lymphocytes Auto (Unsp spec) [#/Vol] 0.84 10*3/uL 0.83-4.51 [facility] Basophil percentageOrdered B y: Breanne Ruiz on 12-13-2022 Basophils/100 WBC (Bld) 1.2 % 0-1 [facility] Chloride [Moles/Vol] 108 mmol/L 98-107 [facility] Eosinophils/100 WBC (Bld) 4.5 % 0-5 [facility] Glucose [Mass/Vol] 150 mg/dL 74-106 [facility] Comment on above: Fasting Glucose resu lt greater than or equal to 126 mg/dL suggests DIABETES MELLITUS per A.D.A. criteria. Neutrophils (Bld) [#/Vol] 5.4 10*3/uL 2.0-7.7 [facility] Neutrophils/100 WBC (Bld) 71.5 % 47-70 [facility] Potassium [Moles/Vol] 3.8 mmol/L 3.5-5.1 [facility] Sodium [Moles/Vol] 139 mmol/L 136-145 [facility] WBC (Bld) [#/Vol] 7.5 10*3/uL 4.4-11.0 [facility] Blood erythrocytes count (nu mber/volume)Ordered By: Breanne Ruiz on 12-13-2022 RBC (Bld) [#/Vol] 4.96 10*6/uL 4.2-5.4 [facility] Blood hemoglobin measurement (mass/volume)Ordered By: Breanne Ruiz on 12-13-2022 Hemoglobin (Bld) [Mass/Vol] 13.2 g/dL 12.0-15.0 [facility] Blood lymphocytes/100 leukoc ytesOrdered By: Breanne Ruiz on 12-13-2022 Lymphocytes/100 WBC (Bld) 11.2 % 19-41 [facility] Blood monocytes/100 leukocyt esOrdered By: Breanne Ruiz on 12-13-2022 Monocytes/100 WBC (Bld) 10.4 % 0-10 [facility] Blood platelet mean volumeOr dered By: Breanne Ruiz on 12-13-2022 Platelet mean volume (Bld) [Entitic vol] 8.7 fL 6.2-12.0 [facility] Determination of erythrocyte mean corpuscular volume (MCV)Ordered By: Breanne Ruiz on 12-13-2022 MCV (RBC) [Entitic vol] 87.1 fL 81-99 [facility] Hematocrit Auto (Bld) [Volum e fraction]Ordered By: Breanne Ruiz on 12-13-2022 Hematocrit (Bld) [Volume fraction] 43.2 % 37-47 [facility] Laboratory - Chemistry and C hemistry - challengeOrdered By: Breanne Ruiz on 12-13-2022 CO2 [Moles/Vol] 26.0 mmol/L 21.0-32.0 [facility] Urea nitrogen/Creatinine [Mass ratio] 31.7 mg/mg 10-20 [facility] Laboratory - Hematology and Cell countsOrdered By: Breanne Ruiz on 12-13-2022 Erythrocyte distribution width (RBC) [Entitic vol] 49.9 fL 35.1-43.9 [facility] Erythrocyte distribution width (RBC) [Ratio] 15.9 % 11.6-14.6 [facility] Immature granulocytes/100 WBC (Bld) 1.200 % 0.0-0.9 [facility] Comment on above: IG% - Immature Granu locytes (promyelocytes, myelocytes and metamyelocytes) > 1% indicates that a LEFT SHIFT is Present. MCH (RBC) [Entitic mass] 26.6 pg 27.0-32.0 [facility] Nucleated RBC/100 WBC (Bld) [Ratio] 0 % 0-5 [facility] MCHC Auto (RBC) [Mass/Vol]Or dered By: Breanne Ruiz on 12-13-2022 MCHC (RBC) [Mass/Vol] 30.6 g/dL 32-36 [facility] No Panel InformationOrdered By: Breanne Ruiz on 12-13-2022 Estimated GFR (MDRD) Amer 122 mL/min >60 [facility] Comment on above: GFR Calc Estimated GFR (MDRD) Non-Af Amer 101 mL/min >60 [facility] Comment on above: Non- GFR Calc Platelets bldOrdered By: Prashant Ruiz on 12-13-2022 Platelets (Bld) [#/Vol] 502 10*3/uL 150-450 [facility] Serum or plasma calcium jj urement (mass/volume)Ordered By: Breanne Ruiz on 12-13-2022 Calcium [Mass/Vol] 9.2 mg/dL 8.5-10.1 [facility] Serum or plasma creatinine m easurement (mass/volume)Ordered By: Breanne Ruiz on 12-13-2022 Creatinine [Mass/Vol] 0.63 mg/dL 0.55-1.02 [facility] Comment on above: The validity of the calculated GFR & GFRAA in patients over 70 years has not been determined. Clinical correlation is essential. Serum or plasma urea nitroge n measurement (mass/volume)Ordered By: Breanne Ruiz on 12-13-2022 Urea nitrogen [Mass/Vol] 20 mg/dL 7-18 [facility] Thin prep Papanicolaou smear with manual screeningOrdered By: Breanne Ruiz on 12-13-2022 Thin prep Papanicolaou smear with manual screening 5 5-15 [facility] Absolute lymphocyte countOrd ered By: Breanne Ruiz on 11-29-2022 Lymphocytes Auto (Unsp spec) [#/Vol] 0.94 10*3/uL 0.83-4.51 [facility] Basophil percentageOrdered B y: Breanne Ruiz on 11-29-2022 Basophils/100 WBC (Bld) 1.1 % 0-1 [facility] Chloride [Moles/Vol] 106 mmol/L 98-107 [facility] Eosinophils/100 WBC (Bld) 5.0 % 0-5 [facility] Glucose [Mass/Vol] 137 mg/dL 74-106 [facility] Comment on above: Fasting Glucose resu lt greater than or equal to 126 mg/dL suggests DIABETES MELLITUS per A.D.A. criteria. Neutrophils (Bld) [#/Vol] 6.1 10*3/uL 2.0-7.7 [facility] Neutrophils/100 WBC (Bld) 71.9 % 47-70 [facility] Potassium [Moles/Vol] 3.9 mmol/L 3.5-5.1 [facility] Sodium [Moles/Vol] 138 mmol/L 136-145 [facility] WBC (Bld) [#/Vol] 8.4 10*3/uL 4.4-11.0 [facility] Blood erythrocytes count (nu mber/volume)Ordered By: Breanne Ruiz on 11-29-2022 RBC (Bld) [#/Vol] 5.05 10*6/uL 4.2-5.4 [facility] Blood hemoglobin measurement (mass/volume)Ordered By: Breanne Ruiz on 11-29-2022 Hemoglobin (Bld) [Mass/Vol] 13.5 g/dL 12.0-15.0 [facility] Blood lymphocytes/100 leukoc ytesOrdered By: Breanne Ruiz on 11-29-2022 Lymphocytes/100 WBC (Bld) 11.1 % 19-41 [facility] Blood monocytes/100 leukocyt esOrdered By: Breanne Ruiz on 11-29-2022 Monocytes/100 WBC (Bld) 10.3 % 0-10 [facility] Blood platelet mean volumeOr dered By: Breanne Ruiz on 11-29-2022 Platelet mean volume (Bld) [Entitic vol] 8.8 fL 6.2-12.0 [facility] Determination of erythrocyte mean corpuscular volume (MCV)Ordered By: adalbertocanyonchetan Ruiz on 11-29-2022 MCV (RBC) [Entitic vol] 87.5 fL 81-99 [facility] Hematocrit Auto (Bld) [Volum e fraction]Ordered By: Breanne Ruiz on 11-29-2022 Hematocrit (Bld) [Volume fraction] 44.2 % 37-47 [facility] Laboratory - Chemistry and C hemistry - challengeOrdered By: adalbertocanyonchetan Ruiz on 11-29-2022 CO2 [Moles/Vol] 23.0 mmol/L 21.0-32.0 [facility] Urea nitrogen/Creatinine [Mass ratio] 26.3 mg/mg 10-20 [facility] Laboratory - Hematology and Cell countsOrdered By: Breanne Ruiz on 11-29-2022 Erythrocyte distribution width (RBC) [Entitic vol] 49.9 fL 35.1-43.9 [facility] Erythrocyte distribution width (RBC) [Ratio] 15.7 % 11.6-14.6 [facility] Immature granulocytes/100 WBC (Bld) 0.600 % 0.0-0.9 [facility] Comment on above: IG% - Immature Granu locytes (promyelocytes, myelocytes and metamyelocytes) > 1% indicates that a LEFT SHIFT is Present. MCH (RBC) [Entitic mass] 26.7 pg 27.0-32.0 [facility] Nucleated RBC/100 WBC (Bld) [Ratio] 0 % 0-5 [facility] MCHC Auto (RBC) [Mass/Vol]Or dered By: Breanne Ruiz on 11-29-2022 MCHC (RBC) [Mass/Vol] 30.5 g/dL 32-36 [facility] No Panel InformationOrdered By: Breanne Ruiz on 11-29-2022 Estimated GFR (MDRD) Amer 104 mL/min >60 [facility] Comment on above: GFR Calc Estimated GFR (MDRD) Non-Af Amer 86 mL/min >60 [facility] Comment on above: Non- GFR Calc Platelets bldOrdered By: Prashant Ruiz on 11-29-2022 Platelets (Bld) [#/Vol] 479 10*3/uL 150-450 [facility] Serum or plasma calcium jj urement (mass/volume)Ordered By: Breanne Ruiz on 11-29-2022 Calcium [Mass/Vol] 9.4 mg/dL 8.5-10.1 [facility] Serum or plasma creatinine m easurement (mass/volume)Ordered By: Breanne Ruiz on 11-29-2022 Creatinine [Mass/Vol] 0.72 mg/dL 0.55-1.02 [facility] Comment on above: The validity of the calculated GFR & GFRAA in patients over 70 years has not been determined. Clinical correlation is essential. Serum or plasma urea nitroge n measurement (mass/volume)Ordered By: Breanne Ruiz on 11-29-2022 Urea nitrogen [Mass/Vol] 19 mg/dL 7-18 [facility] Thin prep Papanicolaou smear with manual screeningOrdered By: Breanne Ruiz on 11-29-2022 Thin prep Papanicolaou smear with manual screening 9 5-15 [facility] Absolute lymphocyte countOrd ered By: Asad Jamison on 11-15-2022 Lymphocytes Auto (Unsp spec) [#/Vol] 1.08 10*3/uL 0.83-4.51 [facility] Basophil percentageOrdered B y: Asad Jamison on 11-15-2022 Basophils/100 WBC (Bld) 0.9 % 0-1 [facility] Chloride [Moles/Vol] 106 mmol/L 98-107 [facility] Eosinophils/100 WBC (Bld) 2.2 % 0-5 [facility] Glucose [Mass/Vol] 120 mg/dL 74-106 [facility] Comment on above: Fasting Glucose resu lt from 100 to 125 mg/dL suggests IMPAIRED HOMEOSTASIS per A.D.A. criteria. Neutrophils (Bld) [#/Vol] 8.1 10*3/uL 2.0-7.7 [facility] Neutrophils/100 WBC (Bld) 75.6 % 47-70 [facility] Potassium [Moles/Vol] 4.1 mmol/L 3.5-5.1 [facility] Sodium [Moles/Vol] 141 mmol/L 136-145 [facility] WBC (Bld) [#/Vol] 10.7 10*3/uL 4.4-11.0 [facility] Blood erythrocytes count (nu mber/volume)Ordered By: Asad Jamison on 11-15-2022 RBC (Bld) [#/Vol] 5.54 10*6/uL 4.2-5.4 [facility] Blood hemoglobin measurement (mass/volume)Ordered By: Asad Jamison on 11-15-2022 Hemoglobin (Bld) [Mass/Vol] 14.8 g/dL 12.0-15.0 [facility] Blood lymphocytes/100 leukoc ytesOrdered By: Asad Jamison on 11-15-2022 Lymphocytes/100 WBC (Bld) 10.1 % 19-41 [facility] Blood monocytes/100 leukocyt esOrdered By: Asad Jamison on 11-15-2022 Monocytes/100 WBC (Bld) 9.6 % 0-10 [facility] Blood platelet mean volumeOr dered By: Asad Jamison on 11-15-2022 Platelet mean volume (Bld) [Entitic vol] 9.1 fL 6.2-12.0 [facility] Determination of erythrocyte mean corpuscular volume (MCV)Ordered By: Asad Jamison on 11-15-2022 MCV (RBC) [Entitic vol] 87.9 fL 81-99 [facility] Hematocrit Auto (Bld) [Volum e fraction]Ordered By: Asad Jamison on 11-15-2022 Hematocrit (Bld) [Volume fraction] 48.7 % 37-47 [facility] Laboratory - Chemistry and C hemistry - challengeOrdered By: Asad Jamison on 11-15-2022 CO2 [Moles/Vol] 27.0 mmol/L 21.0-32.0 [facility] Urea nitrogen/Creatinine [Mass ratio] 35.6 mg/mg 10-20 [facility] Laboratory - Hematology and Cell countsOrdered By: Asad Jamison on 11-15-2022 Erythrocyte distribution width (RBC) [Entitic vol] 50.8 fL 35.1-43.9 [facility] Erythrocyte distribution width (RBC) [Ratio] 15.9 % 11.6-14.6 [facility] Immature granulocytes/100 WBC (Bld) 1.600 % 0.0-0.9 [facility] Comment on above: IG% - Immature Granu locytes (promyelocytes, myelocytes and metamyelocytes) > 1% indicates that a LEFT SHIFT is Present. MCH (RBC) [Entitic mass] 26.7 pg 27.0-32.0 [facility] Nucleated RBC/100 WBC (Bld) [Ratio] 0 % 0-5 [facility] MCHC Auto (RBC) [Mass/Vol]Or dered By: Asad Jamison on 11-15-2022 MCHC (RBC) [Mass/Vol] 30.4 g/dL 32-36 [facility] No Panel InformationOrdered By: Asad Jamison on 11-15-2022 Estimated GFR (MDRD) Amer 99 mL/min >60 [facility] Comment on above: GFR Calc Estimated GFR (MDRD) Non-Af Amer 81 mL/min >60 [facility] Comment on above: Non- GFR Calc Platelets bldOrdered By: Gonzales Jamison on 11-15-2022 Platelets (Bld) [#/Vol] 540 10*3/uL 150-450 [facility] Serum or plasma calcium jj urement (mass/volume)Ordered By: Asad Jamison on 11-15-2022 Calcium [Mass/Vol] 9.5 mg/dL 8.5-10.1 [facility] Serum or plasma creatinine m easurement (mass/volume)Ordered By: Asad Jamison on 11-15-2022 Creatinine [Mass/Vol] 0.76 mg/dL 0.55-1.02 [facility] Comment on above: The validity of the calculated GFR & GFRAA in patients over 70 years has not been determined. Clinical correlation is essential. Serum or plasma urea nitroge n measurement (mass/volume)Ordered By: Asad Jamison on 11-15-2022 Urea nitrogen [Mass/Vol] 27 mg/dL 7-18 [facility] Thin prep Papanicolaou smear with manual screeningOrdered By: Asad Jamison on 11-15-2022 Thin prep Papanicolaou smear with manual screening 8 5-15 [facility] Absolute lymphocyte countOrd ered By: Asad Jamison on 11-01-2022 Lymphocytes Auto (Unsp spec) [#/Vol] 0.81 10*3/uL 0.83-4.51 [facility] Basophil percentageOrdered B y: Asad Jamison on 11-01-2022 Basophils/100 WBC (Bld) 1.0 % 0-1 [facility] Chloride [Moles/Vol] 107 mmol/L 98-107 [facility] Eosinophils/100 WBC (Bld) 4.8 % 0-5 [facility] Glucose [Mass/Vol] 135 mg/dL 74-106 [facility] Comment on above: Fasting Glucose resu lt greater than or equal to 126 mg/dL suggests DIABETES MELLITUS per A.D.A. criteria. Neutrophils (Bld) [#/Vol] 5.9 10*3/uL 2.0-7.7 [facility] Neutrophils/100 WBC (Bld) 73.2 % 47-70 [facility] Potassium [Moles/Vol] 3.9 mmol/L 3.5-5.1 [facility] Sodium [Moles/Vol] 141 mmol/L 136-145 [facility] WBC (Bld) [#/Vol] 8.1 10*3/uL 4.4-11.0 [facility] Blood erythrocytes count (nu mber/volume)Ordered By: Asad Jamison on 11-01-2022 RBC (Bld) [#/Vol] 5.16 10*6/uL 4.2-5.4 [facility] Blood hemoglobin measurement (mass/volume)Ordered By: Asad Jamison on 11-01-2022 Hemoglobin (Bld) [Mass/Vol] 13.3 g/dL 12.0-15.0 [facility] Blood lymphocytes/100 leukoc ytesOrdered By: Asad Jamison on 11-01-2022 Lymphocytes/100 WBC (Bld) 10.0 % 19-41 [facility] Blood monocytes/100 leukocyt esOrdered By: Asad Jamison on 11-01-2022 Monocytes/100 WBC (Bld) 9.9 % 0-10 [facility] Blood platelet mean volumeOr dered By: Asad Jamison on 11-01-2022 Platelet mean volume (Bld) [Entitic vol] 8.9 fL 6.2-12.0 [facility] Determination of erythrocyte mean corpuscular volume (MCV)Ordered By: Asad Jamison on 11-01-2022 MCV (RBC) [Entitic vol] 87.4 fL 81-99 [facility] Hematocrit Auto (Bld) [Volum e fraction]Ordered By: Asad Jamison on 11-01-2022 Hematocrit (Bld) [Volume fraction] 45.1 % 37-47 [facility] Laboratory - Chemistry and C hemistry - challengeOrdered By: Asad Jamison on 11-01-2022 CO2 [Moles/Vol] 25.0 mmol/L 21.0-32.0 [facility] Urea nitrogen/Creatinine [Mass ratio] 32.7 mg/mg 10-20 [facility] Laboratory - Hematology and Cell countsOrdered By: Asad Jamison on 11-01-2022 Erythrocyte distribution width (RBC) [Entitic vol] 47.9 fL 35.1-43.9 [facility] Erythrocyte distribution width (RBC) [Ratio] 15.1 % 11.6-14.6 [facility] Immature granulocytes/100 WBC (Bld) 1.100 % 0.0-0.9 [facility] Comment on above: IG% - Immature Granu locytes (promyelocytes, myelocytes and metamyelocytes) > 1% indicates that a LEFT SHIFT is Present. MCH (RBC) [Entitic mass] 25.8 pg 27.0-32.0 [facility] Nucleated RBC/100 WBC (Bld) [Ratio] 0 % 0-5 [facility] MCHC Auto (RBC) [Mass/Vol]Or dered By: Asad Jamison on 11-01-2022 MCHC (RBC) [Mass/Vol] 29.5 g/dL 32-36 [facility] No Panel InformationOrdered By: Asad Jamison on 11-01-2022 Estimated GFR (MDRD) Amer 108 mL/min >60 [facility] Comment on above: GFR Calc Estimated GFR (MDRD) Non-Af Amer 89 mL/min >60 [facility] Comment on above: Non- GFR Calc Platelets bldOrdered By: Gonzales Jamison on 11-01-2022 Platelets (Bld) [#/Vol] 467 10*3/uL 150-450 [facility] Serum or plasma calcium jj urement (mass/volume)Ordered By: Asad Jamison on 11-01-2022 Calcium [Mass/Vol] 9.3 mg/dL 8.5-10.1 [facility] Serum or plasma creatinine m easurement (mass/volume)Ordered By: Asad Jamison on 11-01-2022 Creatinine [Mass/Vol] 0.70 mg/dL 0.55-1.02 [facility] Comment on above: The validity of the calculated GFR & GFRAA in patients over 70 years has not been determined. Clinical correlation is essential. Serum or plasma urea nitroge n measurement (mass/volume)Ordered By: Asad Jamisno on 11-01-2022 Urea nitrogen [Mass/Vol] 23 mg/dL 7-18 [facility] Thin prep Papanicolaou smear with manual screeningOrdered By: Asad Jamison on 11-01-2022 Thin prep Papanicolaou smear with manual screening 9 5-15 [facility] Absolute lymphocyte countOrd ered By: Asad Jamison on 10-18-2022 Lymphocytes Auto (Unsp spec) [#/Vol] 1.14 10*3/uL 0.83-4.51 [facility] Basophil percentageOrdered B y: Asad Jamison on 10-18-2022 Basophils/100 WBC (Bld) 1.1 % 0-1 [facility] Chloride [Moles/Vol] 110 mmol/L 98-107 [facility] Eosinophils/100 WBC (Bld) 5.0 % 0-5 [facility] Glucose [Mass/Vol] 179 mg/dL 74-106 [facility] Comment on above: Fasting Glucose resu lt greater than or equal to 126 mg/dL suggests DIABETES MELLITUS per A.D.A. criteria. Neutrophils (Bld) [#/Vol] 6.5 10*3/uL 2.0-7.7 [facility] Neutrophils/100 WBC (Bld) 69.3 % 47-70 [facility] Potassium [Moles/Vol] 4.0 mmol/L 3.5-5.1 [facility] Sodium [Moles/Vol] 140 mmol/L 136-145 [facility] WBC (Bld) [#/Vol] 9.4 10*3/uL 4.4-11.0 [facility] Blood erythrocytes count (nu mber/volume)Ordered By: Asad Jamison on 10-18-2022 RBC (Bld) [#/Vol] 5.10 10*6/uL 4.2-5.4 [facility] Blood hemoglobin measurement (mass/volume)Ordered By: Asad Jamison on 10-18-2022 Hemoglobin (Bld) [Mass/Vol] 13.6 g/dL 12.0-15.0 [facility] Blood lymphocytes/100 leukoc ytesOrdered By: Asad Jamsion on 10-18-2022 Lymphocytes/100 WBC (Bld) 12.1 % 19-41 [facility] Blood monocytes/100 leukocyt esOrdered By: Asad Jamison on 10-18-2022 Monocytes/100 WBC (Bld) 11.1 % 0-10 [facility] Blood platelet mean volumeOr dered By: Asad Jamison on 10-18-2022 Platelet mean volume (Bld) [Entitic vol] 8.6 fL 6.2-12.0 [facility] Determination of erythrocyte mean corpuscular volume (MCV)Ordered By: Asad Jamison on 10-18-2022 MCV (RBC) [Entitic vol] 87.5 fL 81-99 [facility] Hematocrit Auto (Bld) [Volum e fraction]Ordered By: Asad Jamison on 10-18-2022 Hematocrit (Bld) [Volume fraction] 44.6 % 37-47 [facility] Laboratory - Chemistry and C hemistry - challengeOrdered By: Asad Jamison on 10-18-2022 CO2 [Moles/Vol] 22.0 mmol/L 21.0-32.0 [facility] Urea nitrogen/Creatinine [Mass ratio] 28.1 mg/mg 10-20 [facility] Laboratory - Hematology and Cell countsOrdered By: Asad Jamison on 10-18-2022 Erythrocyte distribution width (RBC) [Entitic vol] 46.2 fL 35.1-43.9 [facility] Erythrocyte distribution width (RBC) [Ratio] 14.3 % 11.6-14.6 [facility] Immature granulocytes/100 WBC (Bld) 1.400 % 0.0-0.9 [facility] Comment on above: IG% - Immature Granu locytes (promyelocytes, myelocytes and metamyelocytes) > 1% indicates that a LEFT SHIFT is Present. MCH (RBC) [Entitic mass] 26.7 pg 27.0-32.0 [facility] Nucleated RBC/100 WBC (Bld) [Ratio] 0 % 0-5 [facility] MCHC Auto (RBC) [Mass/Vol]Or dered By: Asad Jamison on 10-18-2022 MCHC (RBC) [Mass/Vol] 30.5 g/dL 32-36 [facility] No Panel InformationOrdered By: Asad Jamison on 10-18-2022 Estimated GFR (MDRD) Amer 106 mL/min >60 [facility] Comment on above: GFR Calc Estimated GFR (MDRD) Non-Af Amer 88 mL/min >60 [facility] Comment on above: Non- GFR Calc Platelets bldOrdered By: Gonzales Jamison on 10-18-2022 Platelets (Bld) [#/Vol] 622 10*3/uL 150-450 [facility] Serum or plasma calcium jj urement (mass/volume)Ordered By: Asad Jamison on 10-18-2022 Calcium [Mass/Vol] 9.4 mg/dL 8.5-10.1 [facility] Serum or plasma creatinine m easurement (mass/volume)Ordered By: Asad Jamison on 10-18-2022 Creatinine [Mass/Vol] 0.71 mg/dL 0.55-1.02 [facility] Comment on above: The validity of the calculated GFR & GFRAA in patients over 70 years has not been determined. Clinical correlation is essential. Serum or plasma urea nitroge n measurement (mass/volume)Ordered By: Asad Jamison on 10-18-2022 Urea nitrogen [Mass/Vol] 20 mg/dL 7-18 [facility] Thin prep Papanicolaou smear with manual screeningOrdered By: Asad Jamison on 10-18-2022 Thin prep Papanicolaou smear with manual screening 8 5-15 [facility] Absolute lymphocyte countOrd ered By: Asad Jamison on 10-04-2022 Lymphocytes Auto (Unsp spec) [#/Vol] 1.09 10*3/uL 0.83-4.51 [facility] Basophil percentageOrdered B y: Asad Jamison on 10-04-2022 Basophils/100 WBC (Bld) 1.2 % 0-1 [facility] Chloride [Moles/Vol] 107 mmol/L 98-107 [facility] Eosinophils/100 WBC (Bld) 4.5 % 0-5 [facility] Glucose [Mass/Vol] 123 mg/dL 74-106 [facility] Comment on above: Fasting Glucose resu lt from 100 to 125 mg/dL suggests IMPAIRED HOMEOSTASIS per A.D.A. criteria. Neutrophils (Bld) [#/Vol] 6.5 10*3/uL 2.0-7.7 [facility] Neutrophils/100 WBC (Bld) 71.3 % 47-70 [facility] Potassium [Moles/Vol] 3.9 mmol/L 3.5-5.1 [facility] Sodium [Moles/Vol] 140 mmol/L 136-145 [facility] WBC (Bld) [#/Vol] 9.1 10*3/uL 4.4-11.0 [facility] Blood erythrocytes count (nu mber/volume)Ordered By: Asad Jamison on 10-04-2022 RBC (Bld) [#/Vol] 5.46 10*6/uL 4.2-5.4 [facility] Blood hemoglobin measurement (mass/volume)Ordered By: Asad Jamison on 10-04-2022 Hemoglobin (Bld) [Mass/Vol] 14.4 g/dL 12.0-15.0 [facility] Blood lymphocytes/100 leukoc ytesOrdered By: Asad Jamison on 10-04-2022 Lymphocytes/100 WBC (Bld) 12.0 % 19-41 [facility] Blood monocytes/100 leukocyt esOrdered By: Asad Jamison on 10-04-2022 Monocytes/100 WBC (Bld) 10.0 % 0-10 [facility] Blood platelet mean volumeOr dered By: Asad Jamison on 10-04-2022 Platelet mean volume (Bld) [Entitic vol] 8.4 fL 6.2-12.0 [facility] Determination of erythrocyte mean corpuscular volume (MCV)Ordered By: Asad Jamison on 10-04-2022 MCV (RBC) [Entitic vol] 86.1 fL 81-99 [facility] Hematocrit Auto (Bld) [Volum e fraction]Ordered By: Asad Jamison on 10-04-2022 Hematocrit (Bld) [Volume fraction] 47.0 % 37-47 [facility] Laboratory - Chemistry and C hemistry - challengeOrdered By: Asad Jamison on 10-04-2022 CO2 [Moles/Vol] 25.0 mmol/L 21.0-32.0 [facility] Urea nitrogen/Creatinine [Mass ratio] 34.6 mg/mg 10-20 [facility] Laboratory - Hematology and Cell countsOrdered By: Asad Jamison on 10-04-2022 Erythrocyte distribution width (RBC) [Entitic vol] 44.2 fL 35.1-43.9 [facility] Erythrocyte distribution width (RBC) [Ratio] 14.2 % 11.6-14.6 [facility] Immature granulocytes/100 WBC (Bld) 1.000 % 0.0-0.9 [facility] Comment on above: IG% - Immature Granu locytes (promyelocytes, myelocytes and metamyelocytes) > 1% indicates that a LEFT SHIFT is Present. MCH (RBC) [Entitic mass] 26.4 pg 27.0-32.0 [facility] Nucleated RBC/100 WBC (Bld) [Ratio] 0 % 0-5 [facility] MCHC Auto (RBC) [Mass/Vol]Or dered By: Asad Jamison on 10-04-2022 MCHC (RBC) [Mass/Vol] 30.6 g/dL 32-36 [facility] No Panel InformationOrdered By: Asad Jamison on 10-04-2022 Estimated GFR (MDRD) Amer 115 mL/min >60 [facility] Comment on above: GFR Calc Estimated GFR (MDRD) Non-Af Amer 95 mL/min >60 [facility] Comment on above: Non- GFR Calc Platelets bldOrdered By: Gonzales Jamison on 10-04-2022 Platelets (Bld) [#/Vol] 566 10*3/uL 150-450 [facility] Serum or plasma calcium jj urement (mass/volume)Ordered By: Asad Jamison on 10-04-2022 Calcium [Mass/Vol] 9.8 mg/dL 8.5-10.1 [facility] Serum or plasma creatinine m easurement (mass/volume)Ordered By: Asad Jamison on 10-04-2022 Creatinine [Mass/Vol] 0.66 mg/dL 0.55-1.02 [facility] Comment on above: The validity of the calculated GFR & GFRAA in patients over 70 years has not been determined. Clinical correlation is essential. Serum or plasma urea nitroge n measurement (mass/volume)Ordered By: Asad Jamison on 10-04-2022 Urea nitrogen [Mass/Vol] 23 mg/dL 7-18 [facility] Thin prep Papanicolaou smear with manual screeningOrdered By: Asad Jamison on 10-04-2022 Thin prep Papanicolaou smear with manual screening 8 5-15 [facility] Absolute lymphocyte countOrd ered By: Asad Jamison on 09-20-2022 Lymphocytes Auto (Unsp spec) [#/Vol] 1.20 10*3/uL 0.83-4.51 [facility] Basophil percentageOrdered B y: Asad Jamison on 09-20-2022 Basophils/100 WBC (Bld) 1.1 % 0-1 [facility] Chloride [Moles/Vol] 110 mmol/L 98-107 [facility] Eosinophils/100 WBC (Bld) 5.3 % 0-5 [facility] Glucose [Mass/Vol] 129 mg/dL 74-106 [facility] Comment on above: Fasting Glucose resu lt greater than or equal to 126 mg/dL suggests DIABETES MELLITUS per A.D.A. criteria. Neutrophils (Bld) [#/Vol] 7.2 10*3/uL 2.0-7.7 [facility] Neutrophils/100 WBC (Bld) 71.4 % 47-70 [facility] Potassium [Moles/Vol] 4.0 mmol/L 3.5-5.1 [facility] Sodium [Moles/Vol] 139 mmol/L 136-145 [facility] WBC (Bld) [#/Vol] 10.0 10*3/uL 4.4-11.0 [facility] Blood erythrocytes count (nu mber/volume)Ordered By: Asad Jamison on 09-20-2022 RBC (Bld) [#/Vol] 4.97 10*6/uL 4.2-5.4 [facility] Blood hemoglobin measurement (mass/volume)Ordered By: Asad Jamison on 09-20-2022 Hemoglobin (Bld) [Mass/Vol] 13.4 g/dL 12.0-15.0 [facility] Blood lymphocytes/100 leukoc ytesOrdered By: Asad Jamison on 09-20-2022 Lymphocytes/100 WBC (Bld) 12.0 % 19-41 [facility] Blood monocytes/100 leukocyt esOrdered By: Asad Jamison on 09-20-2022 Monocytes/100 WBC (Bld) 9.3 % 0-10 [facility] Blood platelet mean volumeOr dered By: Asad Jamison on 09-20-2022 Platelet mean volume (Bld) [Entitic vol] 8.7 fL 6.2-12.0 [facility] Determination of erythrocyte mean corpuscular volume (MCV)Ordered By: Asad Jamison on 09-20-2022 MCV (RBC) [Entitic vol] 88.3 fL 81-99 [facility] Hematocrit Auto (Bld) [Volum e fraction]Ordered By: Asad Jamison on 09-20-2022 Hematocrit (Bld) [Volume fraction] 43.9 % 37-47 [facility] Laboratory - Chemistry and C hemistry - challengeOrdered By: Asad Jamison on 09-20-2022 CO2 [Moles/Vol] 25.0 mmol/L 21.0-32.0 [facility] Urea nitrogen/Creatinine [Mass ratio] 41.7 mg/mg 10-20 [facility] Laboratory - Hematology and Cell countsOrdered By: Asad Jamison on 09-20-2022 Erythrocyte distribution width (RBC) [Entitic vol] 45.1 fL 35.1-43.9 [facility] Erythrocyte distribution width (RBC) [Ratio] 14.2 % 11.6-14.6 [facility] Immature granulocytes/100 WBC (Bld) 0.900 % 0.0-0.9 [facility] Comment on above: IG% - Immature Granu locytes (promyelocytes, myelocytes and metamyelocytes) > 1% indicates that a LEFT SHIFT is Present. MCH (RBC) [Entitic mass] 27.0 pg 27.0-32.0 [facility] Nucleated RBC/100 WBC (Bld) [Ratio] 0 % 0-5 [facility] MCHC Auto (RBC) [Mass/Vol]Or dered By: Asad Jamison on 09-20-2022 MCHC (RBC) [Mass/Vol] 30.5 g/dL 32-36 [facility] No Panel InformationOrdered By: Asad Jamison on 09-20-2022 Estimated GFR (MDRD) Amer 129 mL/min >60 [facility] Comment on above: GFR Calc Estimated GFR (MDRD) Non-Af Amer 107 mL/min >60 [facility] Comment on above: Non- GFR Calc Platelets bldOrdered By: Gonzales Jamison on 09-20-2022 Platelets (Bld) [#/Vol] 533 10*3/uL 150-450 [facility] Serum or plasma calcium jj urement (mass/volume)Ordered By: Asad Jamison on 09-20-2022 Calcium [Mass/Vol] 9.4 mg/dL 8.5-10.1 [facility] Serum or plasma creatinine m easurement (mass/volume)Ordered By: Asad Jamison on 09-20-2022 Creatinine [Mass/Vol] 0.60 mg/dL 0.55-1.02 [facility] Comment on above: The validity of the calculated GFR & GFRAA in patients over 70 years has not been determined. Clinical correlation is essential. Serum or plasma urea nitroge n measurement (mass/volume)Ordered By: Asad Jamison on 09-20-2022 Urea nitrogen [Mass/Vol] 25 mg/dL -18 [facility] Thin prep Papanicolaou smear with manual screeningOrdered By: Asad Jamison on 09-20-2022 Thin prep Papanicolaou smear with manual screening 4 5-15 [facility] Absolute lymphocyte countOrd ered By: Asad Jamison on 09-06-2022 Lymphocytes Auto (Unsp spec) [#/Vol] 0.97 10*3/uL 0.83-4.51 [facility] Basophil percentageOrdered B y: Asad Jamison on 09-06-2022 Basophils/100 WBC (Bld) 1.0 % 0-1 [facility] Chloride [Moles/Vol] 107 mmol/L 98-107 [facility] Eosinophils/100 WBC (Bld) 4.5 % 0-5 [facility] Glucose [Mass/Vol] 112 mg/dL 74-106 [facility] Comment on above: Fasting Glucose resu lt from 100 to 125 mg/dL suggests IMPAIRED HOMEOSTASIS per A.D.A. criteria. Neutrophils (Bld) [#/Vol] 6.2 10*3/uL 2.0-7.7 [facility] Neutrophils/100 WBC (Bld) 72.2 % 47-70 [facility] Potassium [Moles/Vol] 3.7 mmol/L 3.5-5.1 [facility] Sodium [Moles/Vol] 138 mmol/L 136-145 [facility] WBC (Bld) [#/Vol] 8.6 10*3/uL 4.4-11.0 [facility] Blood erythrocytes count (nu mber/volume)Ordered By: Asad Jamison on 09-06-2022 RBC (Bld) [#/Vol] 5.05 10*6/uL 4.2-5.4 [facility] Blood hemoglobin measurement (mass/volume)Ordered By: Asad Jamison on 09-06-2022 Hemoglobin (Bld) [Mass/Vol] 13.6 g/dL 12.0-15.0 [facility] Blood lymphocytes/100 leukoc ytesOrdered By: Asad Jamison on 09-06-2022 Lymphocytes/100 WBC (Bld) 11.3 % 19-41 [facility] Blood monocytes/100 leukocyt esOrdered By: Asad Jamison on 09-06-2022 Monocytes/100 WBC (Bld) 10.4 % 0-10 [facility] Blood platelet mean volumeOr dered By: Asad Jamison on 09-06-2022 Platelet mean volume (Bld) [Entitic vol] 8.4 fL 6.2-12.0 [facility] Determination of erythrocyte mean corpuscular volume (MCV)Ordered By: Asad Jamison on 09-06-2022 MCV (RBC) [Entitic vol] 87.7 fL 81-99 [facility] [facility] Hematocrit Auto (Bld) [Volum e fraction]Ordered By: Asad Jamison on 09-06-2022 Hematocrit (Bld) [Volume fraction] 44.3 % 37-47 [facility] Laboratory - Chemistry and C hemistry - challengeOrdered By: Asad Jamison on 09-06-2022 CO2 [Moles/Vol] 25.0 mmol/L 21.0-32.0 [facility] Urea nitrogen/Creatinine [Mass ratio] 30.4 mg/mg 10-20 [facility] Laboratory - Hematology and Cell countsOrdered By: Asad Jamison on 09-06-2022 Erythrocyte distribution width (RBC) [Entitic vol] 45.9 fL 35.1-43.9 [facility] Erythrocyte distribution width (RBC) [Ratio] 14.3 % 11.6-14.6 [facility] Immature granulocytes/100 WBC (Bld) 0.600 % 0.0-0.9 [facility] Comment on above: IG% - Immature Granu locytes (promyelocytes, myelocytes and metamyelocytes) > 1% indicates that a LEFT SHIFT is Present. MCH (RBC) [Entitic mass] 26.9 pg 27.0-32.0 [facility] Nucleated RBC/100 WBC (Bld) [Ratio] 0 % 0-5 [facility] MCHC Auto (RBC) [Mass/Vol]Or dered By: Asad Jamison on 09-06-2022 MCHC (RBC) [Mass/Vol] 30.7 g/dL 32-36 [facility] No Panel InformationOrdered By: Asad Jamison on 09-06-2022 Estimated GFR (MDRD) Amer 116 mL/min >60 [facility] Comment on above: GFR Calc Estimated GFR (MDRD) Non-Af Amer 96 mL/min >60 [facility] Comment on above: Non- GFR Calc Platelets bldOrdered By: Gonzales Jamison on 09-06-2022 Platelets (Bld) [#/Vol] 484 10*3/uL 150-450 [facility] Serum or plasma calcium jj urement (mass/volume)Ordered By: Asad Jamison on 09-06-2022 Calcium [Mass/Vol] 9.4 mg/dL 8.5-10.1 [facility] Serum or plasma creatinine m easurement (mass/volume)Ordered By: Asad Jamison on 09-06-2022 Creatinine [Mass/Vol] 0.66 mg/dL 0.55-1.02 [facility] Comment on above: The validity of the calculated GFR & GFRAA in patients over 70 years has not been determined. Clinical correlation is essential. Serum or plasma urea nitroge n measurement (mass/volume)Ordered By: Asad Jamison on 09-06-2022 Urea nitrogen [Mass/Vol] 20 mg/dL 7-18 [facility] Thin prep Papanicolaou smear with manual screeningOrdered By: Asad Jamison on 09-06-2022 Thin prep Papanicolaou smear with manual screening 6 5-15 [facility] Absolute lymphocyte countOrd ered By: Asad Jamison on 08-23-2022 Lymphocytes Auto (Unsp spec) [#/Vol] 1.01 10*3/uL 0.83-4.51 [facility] Basophil percentageOrdered B y: Asad Jamison on 08-23-2022 Basophils/100 WBC (Bld) 1.6 % 0-1 [facility] Chloride [Moles/Vol] 106 mmol/L 98-107 [facility] Eosinophils/100 WBC (Bld) 5.7 % 0-5 [facility] Glucose [Mass/Vol] 129 mg/dL 74-106 [facility] Comment on above: Fasting Glucose resu lt greater than or equal to 126 mg/dL suggests DIABETES MELLITUS per A.D.A. criteria. Neutrophils (Bld) [#/Vol] 4.6 10*3/uL 2.0-7.7 [facility] Neutrophils/100 WBC (Bld) 65.1 % 47-70 [facility] Potassium [Moles/Vol] 4.1 mmol/L 3.5-5.1 [facility] Sodium [Moles/Vol] 141 mmol/L 136-145 [facility] WBC (Bld) [#/Vol] 7.0 10*3/uL 4.4-11.0 [facility] Blood erythrocytes count (nu mber/volume)Ordered By: Asad Jamison on 08-23-2022 RBC (Bld) [#/Vol] 5.08 10*6/uL 4.2-5.4 [facility] Blood hemoglobin measurement (mass/volume)Ordered By: Asad Jamison on 08-23-2022 Hemoglobin (Bld) [Mass/Vol] 13.7 g/dL 12.0-15.0 [facility] Blood lymphocytes/100 leukoc ytesOrdered By: Asad Jamison on 08-23-2022 Lymphocytes/100 WBC (Bld) 14.4 % 19-41 [facility] Blood monocytes/100 leukocyt esOrdered By: Asad Jamison on 08-23-2022 Monocytes/100 WBC (Bld) 12.5 % 0-10 [facility] Blood platelet mean volumeOr dered By: Asad Jamison on 08-23-2022 Platelet mean volume (Bld) [Entitic vol] 9.1 fL 6.2-12.0 [facility] Determination of erythrocyte mean corpuscular volume (MCV)Ordered By: Asad Jamison on 08-23-2022 MCV (RBC) [Entitic vol] 88.4 fL 81-99 [facility] Hematocrit Auto (Bld) [Volum e fraction]Ordered By: Asad Jamison on 08-23-2022 Hematocrit (Bld) [Volume fraction] 44.9 % 37-47 [facility] Laboratory - Chemistry and C hemistry - challengeOrdered By: Asad Jamison on 08-23-2022 CO2 [Moles/Vol] 26.0 mmol/L 21.0-32.0 [facility] Urea nitrogen/Creatinine [Mass ratio] 38.0 mg/mg 10-20 [facility] Laboratory - Hematology and Cell countsOrdered By: Asad Jamison on 08-23-2022 Erythrocyte distribution width (RBC) [Entitic vol] 45.2 fL 35.1-43.9 [facility] Erythrocyte distribution width (RBC) [Ratio] 14.1 % 11.6-14.6 [facility] Immature granulocytes/100 WBC (Bld) 0.700 % 0.0-0.9 [facility] Comment on above: IG% - Immature Granu locytes (promyelocytes, myelocytes and metamyelocytes) > 1% indicates that a LEFT SHIFT is Present. MCH (RBC) [Entitic mass] 27.0 pg 27.0-32.0 [facility] Nucleated RBC/100 WBC (Bld) [Ratio] 0 % 0-5 [facility] MCHC Auto (RBC) [Mass/Vol]Or dered By: Asad Jamison on 08-23-2022 MCHC (RBC) [Mass/Vol] 30.5 g/dL 32-36 [facility] No Panel InformationOrdered By: Asad Jamison on 08-23-2022 Estimated GFR (MDRD) Amer 128 mL/min >60 [facility] Comment on above: GFR Calc Estimated GFR (MDRD) Non-Af Amer 106 mL/min >60 [facility] Comment on above: Non- GFR Calc Platelets bldOrdered By: Gonzales Jamison on 08-23-2022 Platelets (Bld) [#/Vol] 504 10*3/uL 150-450 [facility] Serum or plasma calcium jj urement (mass/volume)Ordered By: Asad Jamison on 08-23-2022 Calcium [Mass/Vol] 9.5 mg/dL 8.5-10.1 [facility] Serum or plasma creatinine m easurement (mass/volume)Ordered By: Asad Jamison on 08-23-2022 Creatinine [Mass/Vol] 0.60 mg/dL 0.55-1.02 [facility] Comment on above: The validity of the calculated GFR & GFRAA in patients over 70 years has not been determined. Clinical correlation is essential. Serum or plasma urea nitroge n measurement (mass/volume)Ordered By: Asad Jamison on 08-23-2022 Urea nitrogen [Mass/Vol] 23 mg/dL 7-18 [facility] Thin prep Papanicolaou smear with manual screeningOrdered By: Asad Jamison on 08-23-2022 Thin prep Papanicolaou smear with manual screening 9 5-15 [facility] Absolute lymphocyte countOrd ered By: rBeanne Ruiz on 08-09-2022 Lymphocytes Auto (Unsp spec) [#/Vol] 1.01 10*3/uL 0.83-4.51 [facility] Basophil percentageOrdered B y: Breanne Ruiz on 08-09-2022 Basophils/100 WBC (Bld) 1.0 % 0-1 [facility] Chloride [Moles/Vol] 106 mmol/L 98-107 [facility] Eosinophils/100 WBC (Bld) 5.8 % 0-5 [facility] Glucose [Mass/Vol] 117 mg/dL 74-106 [facility] Comment on above: Fasting Glucose resu lt from 100 to 125 mg/dL suggests IMPAIRED HOMEOSTASIS per A.D.A. criteria. Neutrophils (Bld) [#/Vol] 5.8 10*3/uL 2.0-7.7 [facility] Neutrophils/100 WBC (Bld) 69.6 % 47-70 [facility] Potassium [Moles/Vol] 4.1 mmol/L 3.5-5.1 [facility] Comment on above: Slight Hemolysis, Re sult may be falsely increased. Sodium [Moles/Vol] 138 mmol/L 136-145 [facility] WBC (Bld) [#/Vol] 8.3 10*3/uL 4.4-11.0 [facility] Blood erythrocytes count (nu mber/volume)Ordered By: Breanne Ruiz on 08-09-2022 RBC (Bld) [#/Vol] 4.96 10*6/uL 4.2-5.4 [facility] Blood hemoglobin measurement (mass/volume)Ordered By: Breanne Ruiz on 08-09-2022 Hemoglobin (Bld) [Mass/Vol] 13.3 g/dL 12.0-15.0 [facility] Blood lymphocytes/100 leukoc ytesOrdered By: Breanne Ruiz on 08-09-2022 Lymphocytes/100 WBC (Bld) 12.2 % 19-41 [facility] Blood monocytes/100 leukocyt esOrdered By: Breanne Ruiz on 08-09-2022 Monocytes/100 WBC (Bld) 10.8 % 0-10 [facility] Blood platelet mean volumeOr dered By: Breanne Ruiz on 08-09-2022 Platelet mean volume (Bld) [Entitic vol] 9.0 fL 6.2-12.0 [facility] Determination of erythrocyte mean corpuscular volume (MCV)Ordered By: Breanne Ruiz on 08-09-2022 MCV (RBC) [Entitic vol] 89.3 fL 81-99 [facility] Hematocrit Auto (Bld) [Volum e fraction]Ordered By: Breanne Ruiz on 08-09-2022 Hematocrit (Bld) [Volume fraction] 44.3 % 37-47 [facility] Laboratory - Chemistry and C hemistry - challengeOrdered By: Breanne Ruiz on 08-09-2022 CO2 [Moles/Vol] 23.0 mmol/L 21.0-32.0 [facility] Urea nitrogen/Creatinine [Mass ratio] 38.2 mg/mg 10-20 [facility] Laboratory - Hematology and Cell countsOrdered By: Breanne Ruiz on 08-09-2022 Erythrocyte distribution width (RBC) [Entitic vol] 46.2 fL 35.1-43.9 [facility] Erythrocyte distribution width (RBC) [Ratio] 14.2 % 11.6-14.6 [facility] Immature granulocytes/100 WBC (Bld) 0.600 % 0.0-0.9 [facility] Comment on above: IG% - Immature Granu locytes (promyelocytes, myelocytes and metamyelocytes) > 1% indicates that a LEFT SHIFT is Present. MCH (RBC) [Entitic mass] 26.8 pg 27.0-32.0 [facility] Nucleated RBC/100 WBC (Bld) [Ratio] 0 % 0-5 [facility] MCHC Auto (RBC) [Mass/Vol]Or dered By: Breanne Ruiz on 08-09-2022 MCHC (RBC) [Mass/Vol] 30.0 g/dL 32-36 [facility] No Panel InformationOrdered By: Breanne Ruiz on 08-09-2022 Estimated GFR (MDRD) Amer 122 mL/min >60 [facility] Comment on above: GFR Calc Estimated GFR (MDRD) Non-Af Amer 101 mL/min >60 [facility] Comment on above: Non- GFR Calc Platelets bldOrdered By: Prashant Ruiz on 08-09-2022 Platelets (Bld) [#/Vol] 463 10*3/uL 150-450 [facility] Serum or plasma calcium jj urement (mass/volume)Ordered By: Breanne Ruiz on 08-09-2022 Calcium [Mass/Vol] 9.5 mg/dL 8.5-10.1 [facility] Serum or plasma creatinine m easurement (mass/volume)Ordered By: Breanne Ruiz on 08-09-2022 Creatinine [Mass/Vol] 0.63 mg/dL 0.55-1.02 [facility] Comment on above: The validity of the calculated GFR & GFRAA in patients over 70 years has not been determined. Clinical correlation is essential. Serum or plasma urea nitroge n measurement (mass/volume)Ordered By: [facility] Ru[facility] on 08-09-2022 Urea nitrogen [Mass/Vol] 24 mg/dL 7-18 [facility] Thin prep Papanicolaou smear with manual screeningOrdered By: [facility] on 08-09-2022 Thin prep Papanicolaou smear with manual screening 9 5-15 [facility] Absolute lymphocyte countOrd ered By: Breanne Ruiz on 07-26-2022 Lymphocytes Auto (Unsp spec) [#/Vol] 1.12 10*3/uL 0.83-4.51 [facility] Basophil percentageOrdered B y: Breanne Ruiz on 07-26-2022 Basophils/100 WBC (Bld) 1.7 % 0-1 [facility] Chloride [Moles/Vol] 109 mmol/L 98-107 [facility] Eosinophils/100 WBC (Bld) 6.3 % 0-5 [facility] Glucose [Mass/Vol] 110 mg/dL 74-106 [facility] Comment on above: Fasting Glucose resu lt from 100 to 125 mg/dL suggests IMPAIRED HOMEOSTASIS per A.D.A. criteria. Neutrophils (Bld) [#/Vol] 4.2 10*3/uL 2.0-7.7 [facility] Neutrophils/100 WBC (Bld) 62.5 % 47-70 [facility] Potassium [Moles/Vol] 4.1 mmol/L 3.5-5.1 [facility] Sodium [Moles/Vol] 143 mmol/L 136-145 [facility] WBC (Bld) [#/Vol] 6.6 10*3/uL 4.4-11.0 [facility] Blood erythrocytes count (nu mber/volume)Ordered By: Breanne Ruiz on 07-26-2022 RBC (Bld) [#/Vol] 4.98 10*6/uL 4.2-5.4 [facility] Blood hemoglobin measurement (mass/volume)Ordered By: Breanne Ruiz on 07-26-2022 Hemoglobin (Bld) [Mass/Vol] 13.4 g/dL 12.0-15.0 [facility] Blood lymphocytes/100 leukoc ytesOrdered By: [facility] on 07-26-2022 Lymphocytes/100 WBC (Bld) 16.9 % 19-41 [facility] Blood monocytes/100 leukocyt esOrdered By: adalbertocanyonchetan Ruiz on 07-26-2022 Monocytes/100 WBC (Bld) 11.5 % 0-10 [facility] Blood platelet mean volumeOr dered By: Breanne Ruiz on 07-26-2022 Platelet mean volume (Bld) [Entitic vol] 8.9 fL 6.2-12.0 [facility] Determination of erythrocyte mean corpuscular volume (MCV)Ordered By: Breanne Ruiz on 07-26-2022 MCV (RBC) [Entitic vol] 90.6 fL 81-99 [facility] Hematocrit Auto (Bld) [Volum e fraction]Ordered By: Breanne Ruiz on 07-26-2022 Hematocrit (Bld) [Volume fraction] 45.1 % 37-47 [facility] Laboratory - Chemistry and C hemistry - challengeOrdered By: Breanne Ruiz on 07-26-2022 CO2 [Moles/Vol] 25.0 mmol/L 21.0-32.0 [facility] Urea nitrogen/Creatinine [Mass ratio] 48.5 mg/mg 10-20 [facility] Laboratory - Hematology and Cell countsOrdered By: Breanne Ruiz on 07-26-2022 Erythrocyte distribution width (RBC) [Entitic vol] 48.2 fL 35.1-43.9 [facility] Erythrocyte distribution width (RBC) [Ratio] 14.5 % 11.6-14.6 [facility] Immature granulocytes/100 WBC (Bld) 1.100 % 0.0-0.9 [facility] Comment on above: IG% - Immature Granu locytes (promyelocytes, myelocytes and metamyelocytes) > 1% indicates that a LEFT SHIFT is Present. MCH (RBC) [Entitic mass] 26.9 pg 27.0-32.0 [facility] Nucleated RBC/100 WBC (Bld) [Ratio] 0 % 0-5 [facility] MCHC Auto (RBC) [Mass/Vol]Or dered By: Breanne Ruiz on 07-26-2022 MCHC (RBC) [Mass/Vol] 29.7 g/dL 32-36 [facility] No Panel InformationOrdered By: Breanne Ruiz on 07-26-2022 Estimated GFR (MDRD) Amer 116 mL/min >60 [facility] Comment on above: GFR Calc Estimated GFR (MDRD) Non-Af Amer 96 mL/min >60 [facility] Comment on above: Non- GFR Calc Platelets bldOrdered By: Prashant Ruiz on 07-26-2022 Platelets (Bld) [#/Vol] 464 10*3/uL 150-450 [facility] Serum or plasma calcium jj urement (mass/volume)Ordered By: Breanne Ruiz on 07-26-2022 Calcium [Mass/Vol] 9.7 mg/dL 8.5-10.1 [facility] Serum or plasma creatinine m easurement (mass/volume)Ordered By: Breanne Ruiz on 07-26-2022 Creatinine [Mass/Vol] 0.66 mg/dL 0.55-1.02 [facility] Comment on above: The validity of the calculated GFR & GFRAA in patients over 70 years has not been determined. Clinical correlation is essential. Serum or plasma urea nitroge n measurement (mass/volume)Ordered By: Breanne Ruiz on 07-26-2022 Urea nitrogen [Mass/Vol] 32 mg/dL 7-18 [facility] Thin prep Papanicolaou smear with manual screeningOrdered By: Breanne Ruiz on 07-26-2022 Thin prep Papanicolaou smear with manual screening 9 5-15 [facility] Whole blood hemoglobin A1c/t otal hemoglobin ratio (mass fraction)Ordered By: Breanne Ruiz on 07-13-2022 HbA1c (Bld) [Mass fraction] 5.8 % 3.8-5.6 [facility] Comment on above: Normal < 5.7 % Predi abetic 5.7 - 6.4 % Diabetic >or= 6.5 % Please note range changes. Absolute lymphocyte countOrd ered By: Asad Jamison on 07-12-2022 Lymphocytes Auto (Unsp spec) [#/Vol] 1.16 10*3/uL 0.83-4.51 [facility] Basophil percentageOrdered B y: Asad Jamison on 07-12-2022 Basophils/100 WBC (Bld) 1.4 % 0-1 [facility] Chloride [Moles/Vol] 107 mmol/L 98-107 [facility] Eosinophils/100 WBC (Bld) 4.3 % 0-5 [facility] Glucose [Mass/Vol] 148 mg/dL 74-106 [facility] Comment on above: Fasting Glucose resu lt greater than or equal to 126 mg/dL suggests DIABETES MELLITUS per A.D.A. criteria. Neutrophils (Bld) [#/Vol] 5.3 10*3/uL 2.0-7.7 [facility] Neutrophils/100 WBC (Bld) 69.0 % 47-70 [facility] Potassium [Moles/Vol] 3.9 mmol/L 3.5-5.1 [facility] Sodium [Moles/Vol] 142 mmol/L 136-145 [facility] WBC (Bld) [#/Vol] 7.7 10*3/uL 4.4-11.0 [facility] Blood erythrocytes count (nu mber/volume)Ordered By: Asad Jamison on 07-12-2022 RBC (Bld) [#/Vol] 4.99 10*6/uL 4.2-5.4 [facility] Blood hemoglobin measurement (mass/volume)Ordered By: Asad Jamison on 07-12-2022 Hemoglobin (Bld) [Mass/Vol] 13.4 g/dL 12.0-15.0 [facility] Blood lymphocytes/100 leukoc ytesOrdered By: Asad Jamison on 07-12-2022 Lymphocytes/100 WBC (Bld) 15.0 % 19-41 [facility] Blood monocytes/100 leukocyt esOrdered By: Asad Jamison on 07-12-2022 Monocytes/100 WBC (Bld) 9.8 % 0-10 [facility] Blood platelet mean volumeOr dered By: Asad Jamison on 07-12-2022 Platelet mean volume (Bld) [Entitic vol] 8.6 fL 6.2-12.0 [facility] Determination of erythrocyte mean corpuscular volume (MCV)Ordered By: Asad Jamison on 07-12-2022 MCV (RBC) [Entitic vol] 88.4 fL 81-99 [facility] Hematocrit Auto (Bld) [Volum e fraction]Ordered By: Asad Jamison on 07-12-2022 Hematocrit (Bld) [Volume fraction] 44.1 % 37-47 [facility] Laboratory - Chemistry and C hemistry - challengeOrdered By: Asad Jamison on 07-12-2022 CO2 [Moles/Vol] 27.0 mmol/L 21.0-32.0 [facility] Urea nitrogen/Creatinine [Mass ratio] 36.2 mg/mg 10-20 [facility] Laboratory - Hematology and Cell countsOrdered By: Asad Jamison on 07-12-2022 Erythrocyte distribution width (RBC) [Entitic vol] 46.5 fL 35.1-43.9 [facility] Erythrocyte distribution width (RBC) [Ratio] 14.4 % 11.6-14.6 [facility] Immature granulocytes/100 WBC (Bld) 0.500 % 0.0-0.9 [facility] Comment on above: IG% - Immature Granu locytes (promyelocytes, myelocytes and metamyelocytes) > 1% indicates that a LEFT SHIFT is Present. MCH (RBC) [Entitic mass] 26.9 pg 27.0-32.0 [facility] Nucleated RBC/100 WBC (Bld) [Ratio] 0 % 0-5 [facility] MCHC Auto (RBC) [Mass/Vol]Or dered By: Asad Jamison on 07-12-2022 MCHC (RBC) [Mass/Vol] 30.4 g/dL 32-36 [facility] No Panel InformationOrdered By: Asad Jamison on 07-12-2022 Estimated GFR (MDRD) Amer 101 mL/min >60 [facility] Comment on above: GFR Calc Estimated GFR (MDRD) Non-Af Amer 83 mL/min >60 [facility] Comment on above: Non- GFR Calc Platelets bldOrdered By: Gonzales Jamison on 07-12-2022 Platelets (Bld) [#/Vol] 491 10*3/uL 150-450 [facility] Serum or plasma calcium jj urement (mass/volume)Ordered By: Asad Jamison on 07-12-2022 Calcium [Mass/Vol] 9.7 mg/dL 8.5-10.1 [facility] Serum or plasma creatinine m easurement (mass/volume)Ordered By: Asad Jamison on 07-12-2022 Creatinine [Mass/Vol] 0.74 mg/dL 0.55-1.02 [facility] Comment on above: The validity of the calculated GFR & GFRAA in patients over 70 years has not been determined. Clinical correlation is essential. Serum or plasma urea nitroge n measurement (mass/volume)Ordered By: Asad Jamison on 07-12-2022 Urea nitrogen [Mass/Vol] 27 mg/dL 7-18 [facility] Thin prep Papanicolaou smear with manual screeningOrdered By: Asad Jamison on 07-12-2022 Thin prep Papanicolaou smear with manual screening 8 5-15 [facility] Absolute lymphocyte countOrd ered By: Asad Jamison on 06-28-2022 Lymphocytes Auto (Unsp spec) [#/Vol] 1.41 10*3/uL 0.83-4.51 [facility] Basophil percentageOrdered B y: Asad Jamison on 06-28-2022 Basophils/100 WBC (Bld) 1.7 % 0-1 [facility] Chloride [Moles/Vol] 108 mmol/L 98-107 [facility] Eosinophils/100 WBC (Bld) 6.8 % 0-5 [facility] Glucose [Mass/Vol] 117 mg/dL 74-106 [facility] Comment on above: Fasting Glucose resu lt from 100 to 125 mg/dL suggests IMPAIRED HOMEOSTASIS per A.D.A. criteria. Neutrophils (Bld) [#/Vol] 3.8 10*3/uL 2.0-7.7 [facility] Neutrophils/100 WBC (Bld) 56.9 % 47-70 [facility] Potassium [Moles/Vol] 4.0 mmol/L 3.5-5.1 [facility] Sodium [Moles/Vol] 142 mmol/L 136-145 [facility] WBC (Bld) [#/Vol] 6.7 10*3/uL 4.4-11.0 [facility] Blood erythrocytes count (nu mber/volume)Ordered By: Asad Jamison on 06-28-2022 RBC (Bld) [#/Vol] 4.72 10*6/uL 4.2-5.4 [facility] Blood hemoglobin measurement (mass/volume)Ordered By: Asad Jamison on 06-28-2022 Hemoglobin (Bld) [Mass/Vol] 12.8 g/dL 12.0-15.0 [facility] Blood lymphocytes/100 leukoc ytesOrdered By: Asad Jamison on 06-28-2022 Lymphocytes/100 WBC (Bld) 21.2 % 19-41 [facility] Blood monocytes/100 leukocyt esOrdered By: Asad Jamison on 06-28-2022 Monocytes/100 WBC (Bld) 12.5 % 0-10 [facility] Blood platelet mean volumeOr dered By: Asad Jamison on 06-28-2022 Platelet mean volume (Bld) [Entitic vol] 9.0 fL 6.2-12.0 [facility] Determination of erythrocyte mean corpuscular volume (MCV)Ordered By: Asad Jamison on 06-28-2022 MCV (RBC) [Entitic vol] 90.7 fL 81-99 [facility] Hematocrit Auto (Bld) [Volum e fraction]Ordered By: Asad Jamison on 06-28-2022 Hematocrit (Bld) [Volume fraction] 42.8 % 37-47 [facility] Laboratory - Chemistry and C hemistry - challengeOrdered By: Asad Jamison on 06-28-2022 CO2 [Moles/Vol] 24.0 mmol/L 21.0-32.0 [facility] Urea nitrogen/Creatinine [Mass ratio] 39.1 mg/mg 10-20 [facility] Laboratory - Hematology and Cell countsOrdered By: Asad Jamison on 06-28-2022 Erythrocyte distribution width (RBC) [Entitic vol] 48.6 fL 35.1-43.9 [facility] Erythrocyte distribution width (RBC) [Ratio] 14.6 % 11.6-14.6 [facility] Immature granulocytes/100 WBC (Bld) 0.900 % 0.0-0.9 [facility] Comment on above: IG% - Immature Granu locytes (promyelocytes, myelocytes and metamyelocytes) > 1% indicates that a LEFT SHIFT is Present. MCH (RBC) [Entitic mass] 27.1 pg 27.0-32.0 [facility] Nucleated RBC/100 WBC (Bld) [Ratio] 0 % 0-5 [facility] MCHC Auto (RBC) [Mass/Vol]Or dered By: Asad Jamison on 06-28-2022 MCHC (RBC) [Mass/Vol] 29.9 g/dL 32-36 [facility] No Panel InformationOrdered By: Asad Jamison on 06-28-2022 Estimated GFR (MDRD) Amer 115 mL/min >60 [facility] Comment on above: GFR Calc Estimated GFR (MDRD) Non-Af Amer 95 mL/min >60 [facility] Comment on above: Non- GFR Calc Platelets bldOrdered By: Gonzales Jamison on 06-28-2022 Platelets (Bld) [#/Vol] 481 10*3/uL 150-450 [facility] Serum or plasma calcium jj urement (mass/volume)Ordered By: Asad Jamison on 06-28-2022 Calcium [Mass/Vol] 9.4 mg/dL 8.5-10.1 [facility] Serum or plasma creatinine m easurement (mass/volume)Ordered By: Asad Jamison on 06-28-2022 Creatinine [Mass/Vol] 0.66 mg/dL 0.55-1.02 [facility] Comment on above: The validity of the calculated GFR & GFRAA in patients over 70 years has not been determined. Clinical correlation is essential. Serum or plasma urea nitroge n measurement (mass/volume)Ordered By: Asad Jamison on 06-28-2022 Urea nitrogen [Mass/Vol] 26 mg/dL 7-18 [facility] Thin prep Papanicolaou smear with manual screeningOrdered By: Asad Jamison on 06-28-2022 Thin prep Papanicolaou smear with manual screening 10 5-15 [facility] Absolute lymphocyte countOrd ered By: Asad Jamison on 06-14-2022 Lymphocytes Auto (Unsp spec) [#/Vol] 1.27 10*3/uL 0.83-4.51 [facility] Basophil percentageOrdered B y: Asad Jamison on 06-14-2022 Basophils/100 WBC (Bld) 1.3 % 0-1 [facility] Chloride [Moles/Vol] 111 mmol/L 98-107 [facility] Eosinophils/100 WBC (Bld) 3.9 % 0-5 [facility] Glucose [Mass/Vol] 123 mg/dL 74-106 [facility] Comment on above: Fasting Glucose resu lt from 100 to 125 mg/dL suggests IMPAIRED HOMEOSTASIS per A.D.A. criteria. Neutrophils (Bld) [#/Vol] 4.5 10*3/uL 2.0-7.7 [facility] Neutrophils/100 WBC (Bld) 63.0 % 47-70 [facility] Potassium [Moles/Vol] 4.2 mmol/L 3.5-5.1 [facility] Sodium [Moles/Vol] 143 mmol/L 136-145 [facility] WBC (Bld) [#/Vol] 7.2 10*3/uL 4.4-11.0 [facility] Blood erythrocytes count (nu mber/volume)Ordered By: Asad Jamison on 06-14-2022 RBC (Bld) [#/Vol] 4.60 10*6/uL 4.2-5.4 [facility] Blood hemoglobin measurement (mass/volume)Ordered By: Asad Jamison on 06-14-2022 Hemoglobin (Bld) [Mass/Vol] 12.8 g/dL 12.0-15.0 [facility] Blood lymphocytes/100 leukoc ytesOrdered By: Asad Jamison on 06-14-2022 Lymphocytes/100 WBC (Bld) 17.7 % 19-41 [facility] Blood monocytes/100 leukocyt esOrdered By: Asad Jamison on 06-14-2022 Monocytes/100 WBC (Bld) 13.4 % 0-10 [facility] Blood platelet mean volumeOr dered By: Asad Jamison on 06-14-2022 Platelet mean volume (Bld) [Entitic vol] 9.0 fL 6.2-12.0 [facility] Determination of erythrocyte mean corpuscular volume (MCV)Ordered By: Asad Jamison on 06-14-2022 MCV (RBC) [Entitic vol] 90.4 fL 81-99 [facility] Hematocrit Auto (Bld) [Volum e fraction]Ordered By: Asad Jamison on 06-14-2022 Hematocrit (Bld) [Volume fraction] 41.6 % 37-47 [facility] Laboratory - Chemistry and C hemistry - challengeOrdered By: Asad Jamison on 06-14-2022 CO2 [Moles/Vol] 26.0 mmol/L 21.0-32.0 [facility] Urea nitrogen/Creatinine [Mass ratio] 49.2 mg/mg 10-20 [facility] Laboratory - Hematology and Cell countsOrdered By: Asad Jamison on 06-14-2022 Erythrocyte distribution width (RBC) [Entitic vol] 49.1 fL 35.1-43.9 [facility] Erythrocyte distribution width (RBC) [Ratio] 14.7 % 11.6-14.6 [facility] Immature granulocytes/100 WBC (Bld) 0.700 % 0.0-0.9 [facility] Comment on above: IG% - Immature Granu locytes (promyelocytes, myelocytes and metamyelocytes) > 1% indicates that a LEFT SHIFT is Present. MCH (RBC) [Entitic mass] 27.8 pg 27.0-32.0 [facility] Nucleated RBC/100 WBC (Bld) [Ratio] 0 % 0-5 [facility] MCHC Auto (RBC) [Mass/Vol]Or dered By: Asad Jamison on 06-14-2022 MCHC (RBC) [Mass/Vol] 30.8 g/dL 32-36 [facility] No Panel InformationOrdered By: Asad Jamison on 06-14-2022 Estimated GFR (MDRD) Amer 118 mL/min >60 [facility] Comment on above: GFR Calc Estimated GFR (MDRD) Non-Af Amer 97 mL/min >60 [facility] Comment on above: Non- GFR Calc Platelets bldOrdered By: Gonzales Jamison on 06-14-2022 Platelets (Bld) [#/Vol] 536 10*3/uL 150-450 [facility] Serum or plasma calcium jj urement (mass/volume)Ordered By: Asad Jamison on 06-14-2022 Calcium [Mass/Vol] 9.5 mg/dL 8.5-10.1 [facility] Serum or plasma creatinine m easurement (mass/volume)Ordered By: Asad Jamison on 06-14-2022 Creatinine [Mass/Vol] 0.65 mg/dL 0.55-1.02 [facility] Comment on above: The validity of the calculated GFR & GFRAA in patients over 70 years has not been determined. Clinical correlation is essential. Serum or plasma urea nitroge n measurement (mass/volume)Ordered By: Asad Jamison on 06-14-2022 Urea nitrogen [Mass/Vol] 32 mg/dL 7-18 [facility] Thin prep Papanicolaou smear with manual screeningOrdered By: Asad Jamison on 06-14-2022 Thin prep Papanicolaou smear with manual screening 6 5-15 [facility] Basophil percentageOrdered B y: Breanne Ruiz on 06-03-2022 Chloride [Moles/Vol] 106 mmol/L 98-107 [facility] Glucose [Mass/Vol] 116 mg/dL 74-106 [facility] Comment on above: Fasting Glucose resu lt from 100 to 125 mg/dL suggests IMPAIRED HOMEOSTASIS per A.D.A. criteria. Potassium [Moles/Vol] 4.1 mmol/L 3.5-5.1 [facility] Sodium [Moles/Vol] 139 mmol/L 136-145 [facility] Laboratory - Chemistry and C hemistry - challengeOrdered By: Breanne Ruiz on 06-03-2022 CO2 [Moles/Vol] 26.0 mmol/L 21.0-32.0 [facility] Urea nitrogen/Creatinine [Mass ratio] 38.7 mg/mg 10-20 [facility] No Panel InformationOrdered By: Breanne Ruiz on 06-03-2022 Estimated GFR (MDRD) Amer 138 mL/min >60 [facility] Comment on above: GFR Calc Estimated GFR (MDRD) Non-Af Amer 114 mL/min >60 [facility] Comment on above: Non- GFR Calc Serum or plasma calcium jj urement (mass/volume)Ordered By: Breanne Ruiz on 06-03-2022 Calcium [Mass/Vol] 9.7 mg/dL 8.5-10.1 [facility] Serum or plasma creatinine m easurement (mass/volume)Ordered By: Breanne Ruiz on 06-03-2022 Creatinine [Mass/Vol] 0.57 mg/dL 0.55-1.02 [facility] Comment on above: The validity of the calculated GFR & GFRAA in patients over 70 years has not been determined. Clinical correlation is essential. Serum or plasma urea nitroge n measurement (mass/volume)Ordered By: Breanne Ruiz on 06-03-2022 Urea nitrogen [Mass/Vol] 22 mg/dL 7-18 [facility] Thin prep Papanicolaou smear with manual screeningOrdered By: adalbertocanyonchetan Ruiz on 06-03-2022 Thin prep Papanicolaou smear with manual screening 7 5-15 [facility] Basophil percentageOrdered B y: Breanne Ruiz on 06-01-2022 Potassium [Moles/Vol] 3.9 mmol/L 3.5-5.1 [facility] Absolute lymphocyte countOrd ered By: Breanne Ruiz on 05-31-2022 Lymphocytes Auto (Unsp spec) [#/Vol] 1.39 10*3/uL 0.83-4.51 [facility] Basophil percentageOrdered B y: Breanne Ruiz on 05-31-2022 Basophils/100 WBC (Bld) 1.0 % 0-1 [facility] Chloride [Moles/Vol] 106 mmol/L 98-107 [facility] Eosinophils/100 WBC (Bld) 4.6 % 0-5 [facility] Glucose [Mass/Vol] 74 mg/dL 74-106 [facility] Neutrophils (Bld) [#/Vol] 7.3 10*3/uL 2.0-7.7 [facility] Neutrophils/100 WBC (Bld) 69.9 % 47-70 [facility] Potassium [Moles/Vol] 4.0 mmol/L 3.5-5.1 [facility] Sodium [Moles/Vol] 141 mmol/L 136-145 [facility] WBC (Bld) [#/Vol] 10.4 10*3/uL 4.4-11.0 [facility] Blood erythrocytes count (nu mber/volume)Ordered By: Breanne Ruiz on 05-31-2022 RBC (Bld) [#/Vol] 4.49 10*6/uL 4.2-5.4 [facility] Blood hemoglobin measurement (mass/volume)Ordered By: Breanne Ruiz on 05-31-2022 Hemoglobin (Bld) [Mass/Vol] 12.5 g/dL 12.0-15.0 [facility] Blood lymphocytes/100 leukoc ytesOrdered By: Breanne Ruiz on 05-31-2022 Lymphocytes/100 WBC (Bld) 13.3 % 19-41 [facility] Blood monocytes/100 leukocyt esOrdered By: Breanne Ruiz on 05-31-2022 Monocytes/100 WBC (Bld) 10.0 % 0-10 [facility] Blood platelet mean volumeOr dered By: Breanne Ruiz on 05-31-2022 Platelet mean volume (Bld) [Entitic vol] 8.8 fL 6.2-12.0 [facility] Culture, urineOrdered By: Elio Ruiz on 05-31-2022 Bacteria identified Cx Nom (U) Escherichia coli [facility] Determination of erythrocyte mean corpuscular volume (MCV)Ordered By: Breanne Ruiz on 05-31-2022 MCV (RBC) [Entitic vol] 91.3 fL 81-99 [facility] Hematocrit Auto (Bld) [Volum e fraction]Ordered By: Breanne Ruiz on 05-31-2022 Hematocrit (Bld) [Volume fraction] 41.0 % 37-47 [facility] Laboratory - Chemistry and C hemistry - challengeOrdered By: Breanne Ruiz on 05-31-2022 CO2 [Moles/Vol] 25.0 mmol/L 21.0-32.0 [facility] Urea nitrogen/Creatinine [Mass ratio] 43.0 mg/mg 10-20 [facility] Laboratory - Hematology and Cell countsOrdered By: Breanne Ruiz on 05-31-2022 Erythrocyte distribution width (RBC) [Entitic vol] 49.5 fL 35.1-43.9 [facility] Erythrocyte distribution width (RBC) [Ratio] 14.6 % 11.6-14.6 [facility] Immature granulocytes/100 WBC (Bld) 1.200 % 0.0-0.9 [facility] Comment on above: IG% - Immature Granu locytes (promyelocytes, myelocytes and metamyelocytes) > 1% indicates that a LEFT SHIFT is Present. MCH (RBC) [Entitic mass] 27.8 pg 27.0-32.0 [facility] Nucleated RBC/100 WBC (Bld) [Ratio] 0 % 0-5 [facility] MCHC Auto (RBC) [Mass/Vol]Or dered By: Breanne Ruiz on 05-31-2022 MCHC (RBC) [Mass/Vol] 30.5 g/dL 32-36 [facility] No Panel InformationOrdered By: Breanne Ruiz on 05-31-2022 Estimated GFR (MDRD) Amer 155 mL/min >60 [facility] Comment on above: GFR Calc Estimated GFR (MDRD) Non-Af Amer 128 mL/min >60 [facility] Comment on above: Non- GFR Calc Platelets bldOrdered By: Prashant Ruiz on 05-31-2022 Platelets (Bld) [#/Vol] 605 10*3/uL 150-450 [facility] Serum or plasma calcium jj urement (mass/volume)Ordered By: Breanne Ruiz on 05-31-2022 Calcium [Mass/Vol] 10.1 mg/dL 8.5-10.1 [facility] Serum or plasma creatinine m easurement (mass/volume)Ordered By: Breanne Ruiz on 05-31-2022 Creatinine [Mass/Vol] 0.51 mg/dL 0.55-1.02 [facility] Comment on above: The validity of the calculated GFR & GFRAA in patients over 70 years has not been determined. Clinical correlation is essential. Serum or plasma urea nitroge n measurement (mass/volume)Ordered By: Breanne Ruiz on 05-31-2022 Urea nitrogen [Mass/Vol] 22 mg/dL 7-18 [facility] Thin prep Papanicolaou smear with manual screeningOrdered By: Breanne Ruiz on 05-31-2022 Thin prep Papanicolaou smear with manual screening 10 5-15 [facility] Bilirubin Test strip Ql (U)O rdered By: Breanne Ruiz on 05-28-2022 Bilirubin Ql (U) Negative Negative [facility] Ketones Test strip Ql (U)Ord ered By: Breanne Ruiz on 05-28-2022 Ketones Ql (U) Negative Negative [facility] Nitrite Test strip Ql (U)Ord ered By: Breanne Ruiz on 05-28-2022 Nitrite Ql (U) Positive Negative [facility] Protein Test strip Ql (U)Ord ered By: Breanne Ruiz on 05-28-2022 Protein Ql (U) 30 mg/dl Negative [facility] Urine blood detectionOrdered By: Breanne Ruiz on 05-28-2022 RBC Ql (U) 25 /ul Negative [facility] Urine clarityOrdered By: Prashant Ruiz on 05-28-2022 Clarity (U) Cloudy Clear [facility] Urine color determinationOrd ered By: Breanne Ruiz on 05-28-2022 Color (U) Yellow Yellow [facility] Urine glucose detectionOrder ed By: Breanne Ruiz on 05-28-2022 Glucose Ql (U) Normal mg/dl Normal [facility] Urine leukocyte esterase det ection by dipstickOrdered By: Breanne Ruiz on 05-28-2022 Leukocyte esterase Test strip Ql (U) 500 /ul Negative [facility] Urine pHOrdered By: Bhupendra Ruiz on 05-28-2022 pH (U) 5.0 [pH] 5.0 - 8.0 [facility] Urine specific gravity measu rementOrdered By: Breanne Ruiz on 05-28-2022 Specific gravity (U) [Rel density] 1.025 1.002-1.030 [facility] Urobilinogen Auto test strip Ql (U)Ordered By: Breanne Ruiz on 05-28-2022 Urobilinogen Ql (U) Normal mg/dl Normal [facility] Absolute lymphocyte countOrd ered By: vannessa Ruiz on 05-27-2022 Lymphocytes Auto (Unsp spec) [#/Vol] 1.33 10*3/uL 0.83-4.51 [facility] Basophil percentageOrdered B y: adalbertocanyonchetan Ruiz on 05-27-2022 Basophils/100 WBC (Bld) 0.4 % 0-1 [facility] Chloride [Moles/Vol] 106 mmol/L 98-107 [facility] Eosinophils/100 WBC (Bld) 0.1 % 0-5 [facility] Glucose [Mass/Vol] 196 mg/dL 74-106 [facility] Comment on above: Fasting Glucose resu lt greater than or equal to 126 mg/dL suggests DIABETES MELLITUS per A.D.A. criteria. Neutrophils (Bld) [#/Vol] 19.9 10*3/uL 2.0-7.7 [facility] Neutrophils/100 WBC (Bld) 85.7 % 47-70 [facility] Potassium [Moles/Vol] 3.3 mmol/L 3.5-5.1 [facility] Sodium [Moles/Vol] 139 mmol/L 136-145 [facility] WBC (Bld) [#/Vol] 23.2 10*3/uL 4.4-11.0 [facility] Blood erythrocytes count (nu mber/volume)Ordered By: Breanne Ruiz on 05-27-2022 RBC (Bld) [#/Vol] 4.62 10*6/uL 4.2-5.4 [facility] Blood hemoglobin measurement (mass/volume)Ordered By: Breanne Ruiz on 05-27-2022 Hemoglobin (Bld) [Mass/Vol] 12.9 g/dL 12.0-15.0 [facility] Blood lymphocytes/100 leukoc ytesOrdered By: Breanne Ruiz on 05-27-2022 Lymphocytes/100 WBC (Bld) 5.7 % 19-41 [facility] Blood manual differential co mment interpretation (narrative result)Ordered By: Breanne Ruiz on 05-27-2022 Manual differential comment Shaan (Bld) [Interp] COMMENT [facility] Comment on above: MONOCYTOSIS. Blood monocytes/100 leukocyt esOrdered By: Breanne Ruiz on 05-27-2022 Monocytes/100 WBC (Bld) 7.8 % 0-10 [facility] Blood platelet mean volumeOr dered By: Breanne Ruiz on 05-27-2022 Platelet mean volume (Bld) [Entitic vol] 8.6 fL 6.2-12.0 [facility] Determination of erythrocyte mean corpuscular volume (MCV)Ordered By: Breanne Ruiz on 05-27-2022 MCV (RBC) [Entitic vol] 88.1 fL 81-99 [facility] Hematocrit Auto (Bld) [Volum e fraction]Ordered By: Breanne Ruiz on 05-27-2022 Hematocrit (Bld) [Volume fraction] 40.7 % 37-47 [facility] Laboratory - Chemistry and C hemistry - challengeOrdered By: Breanne Ruiz on 05-27-2022 CO2 [Moles/Vol] 22.0 mmol/L 21.0-32.0 [facility] Urea nitrogen/Creatinine [Mass ratio] 23.1 mg/mg 10-20 [facility] Laboratory - Hematology and Cell countsOrdered By: Breanne Ruiz on 05-27-2022 Erythrocyte distribution width (RBC) [Entitic vol] 48.1 fL 35.1-43.9 [facility] Erythrocyte distribution width (RBC) [Ratio] 14.9 % 11.6-14.6 [facility] Immature granulocytes/100 WBC (Bld) 0.300 % 0.0-0.9 [facility] Comment on above: IG% - Immature Granu locytes (promyelocytes, myelocytes and metamyelocytes) > 1% indicates that a LEFT SHIFT is Present. MCH (RBC) [Entitic mass] 27.9 pg 27.0-32.0 [facility] Nucleated RBC/100 WBC (Bld) [Ratio] 0 % 0-5 [facility] MCHC Auto (RBC) [Mass/Vol]Or dered By: Breanne Ruiz on 05-27-2022 MCHC (RBC) [Mass/Vol] 31.7 g/dL 32-36 [facility] No Panel InformationOrdered By: Breanne Ruiz on 05-27-2022 Estimated GFR (MDRD) Amer 80 mL/min >60 [facility] Comment on above: GFR Calc Estimated GFR (MDRD) Non-Af Amer 66 mL/min >60 [facility] Comment on above: Non- GFR Calc Troponin I High Sensitivity 7 pg/mL 3.0-54.0 [facility] Comment on above: Please Note: New Adwoa t Units and Gender Specific Reference Ranges. For more information see Policy Stat Procedure [place] High Sensitivity Troponin (TNIH) and attachments. Platelets bldOrdered By: Prashant Ruiz on 05-27-2022 Platelets (Bld) [#/Vol] 468 10*3/uL 150-450 [facility] Review by pathologistOrdered By: Breanne Ruiz on 05-27-2022 Pathologist review Shaan (Unsp spec) [Interp] Reviewed [facility] Comment on above: Previous reported re sult: Kori isaacs Edited by: RGOOD on 05/31/22:1348Neutrophilic leukocytosis.Thrombocytosis.Clinical correlation necessary.Je Browne M.D. 05/31/22 AMENDED REPORT 05/31/22 1348 PATH REV previously reported as: Kori isaacs Serum or plasma calcium jj urement (mass/volume)Ordered By: Breanne Ruiz on 05-27-2022 Calcium [Mass/Vol] 9.4 mg/dL 8.5-10.1 [facility] Serum or plasma creatinine m easurement (mass/volume)Ordered By: Breanne Ruiz on 05-27-2022 Creatinine [Mass/Vol] 0.91 mg/dL 0.55-1.02 [facility] Comment on above: The validity of the calculated GFR & GFRAA in patients over 70 years has not been determined. Clinical correlation is essential. Serum or plasma urea nitroge n measurement (mass/volume)Ordered By: Breanne Ruiz on 05-27-2022 Urea nitrogen [Mass/Vol] 21 mg/dL 7-18 [facility] Thin prep Papanicolaou smear with manual screeningOrdered By: vannessa Ruiz on 05-27-2022 Thin prep Papanicolaou smear with manual screening 11 5-15 [facility] Absolute lymphocyte countOrd ered By: adalbertocanyonchetan Ruiz on 05-17-2022 Lymphocytes Auto (Unsp spec) [#/Vol] 1.57 10*3/uL 0.83-4.51 [facility] Basophil percentageOrdered B y: Breanne Ruiz on 05-17-2022 Basophils/100 WBC (Bld) 1.3 % 0-1 [facility] Chloride [Moles/Vol] 110 mmol/L 98-107 [facility] Eosinophils/100 WBC (Bld) 5.6 % 0-5 [facility] Glucose [Mass/Vol] 109 mg/dL 74-106 [facility] Comment on above: Fasting Glucose resu lt from 100 to 125 mg/dL suggests IMPAIRED HOMEOSTASIS per A.D.A. criteria. Neutrophils (Bld) [#/Vol] 4.6 10*3/uL 2.0-7.7 [facility] Neutrophils/100 WBC (Bld) 60.7 % 47-70 [facility] Potassium [Moles/Vol] 4.0 mmol/L 3.5-5.1 [facility] Sodium [Moles/Vol] 144 mmol/L 136-145 [facility] WBC (Bld) [#/Vol] 7.6 10*3/uL 4.4-11.0 [facility] Blood erythrocytes count (nu mber/volume)Ordered By: Breanne Ruiz on 05-17-2022 RBC (Bld) [#/Vol] 4.79 10*6/uL 4.2-5.4 [facility] Blood hemoglobin measurement (mass/volume)Ordered By: Breanne Ruiz on 05-17-2022 Hemoglobin (Bld) [Mass/Vol] 13.0 g/dL 12.0-15.0 [facility] Blood lymphocytes/100 leukoc ytesOrdered By: Breanne Ruiz on 05-17-2022 Lymphocytes/100 WBC (Bld) 20.8 % 19-41 [facility] Blood monocytes/100 leukocyt esOrdered By: [facility] on 05-17-2022 Monocytes/100 WBC (Bld) 11.2 % 0-10 [facility] Blood platelet mean volumeOr dered By: adalbertocanyonchetan Ruiz on 05-17-2022 Platelet mean volume (Bld) [Entitic vol] 9.2 fL 6.2-12.0 [facility] Determination of erythrocyte mean corpuscular volume (MCV)Ordered By: Abbiecanyonchetan Ruiz on 05-17-2022 MCV (RBC) [Entitic vol] 91.4 fL 81-99 [facility] Hematocrit Auto (Bld) [Volum e fraction]Ordered By: Breanne Ruiz on 05-17-2022 Hematocrit (Bld) [Volume fraction] 43.8 % 37-47 [facility] Laboratory - Chemistry and C hemistry - challengeOrdered By: [facility] Kirklandbeverly 05-17-2022 CO2 [Moles/Vol] 26.0 mmol/L 21.0-32.0 [facility] Urea nitrogen/Creatinine [Mass ratio] 45.3 mg/mg 10-20 [facility] Laboratory - Hematology and Cell countsOrdered By: Breanne Ruiz on 05-17-2022 Erythrocyte distribution width (RBC) [Entitic vol] 50.4 fL 35.1-43.9 [facility] Erythrocyte distribution width (RBC) [Ratio] 15.0 % 11.6-14.6 [facility] Immature granulocytes/100 WBC (Bld) 0.400 % 0.0-0.9 [facility] Comment on above: IG% - Immature Granu locytes (promyelocytes, myelocytes and metamyelocytes) > 1% indicates that a LEFT SHIFT is Present. MCH (RBC) [Entitic mass] 27.1 pg 27.0-32.0 [facility] Nucleated RBC/100 WBC (Bld) [Ratio] 0 % 0-5 [facility] MCHC Auto (RBC) [Mass/Vol]Or dered By: Breanne Ruiz on 05-17-2022 MCHC (RBC) [Mass/Vol] 29.7 g/dL 32-36 [facility] No Panel InformationOrdered By: Breanne Ruiz on 05-17-2022 Estimated GFR (MDRD) Amer 116 mL/min >60 [facility] Comment on above: GFR Calc Estimated GFR (MDRD) Non-Af Amer 95 mL/min >60 [facility] Comment on above: Non- GFR Calc Platelets bldOrdered By: Prashant Ruiz on 05-17-2022 Platelets (Bld) [#/Vol] 503 10*3/uL 150-450 [facility] Serum or plasma calcium jj urement (mass/volume)Ordered By: Breanne Ruiz on 05-17-2022 Calcium [Mass/Vol] 9.7 mg/dL 8.5-10.1 [facility] Serum or plasma creatinine m easurement (mass/volume)Ordered By: Breanne Ruiz on 05-17-2022 Creatinine [Mass/Vol] 0.66 mg/dL 0.55-1.02 [facility] Comment on above: The validity of the calculated GFR & GFRAA in patients over 70 years has not been determined. Clinical correlation is essential. Serum or plasma urea nitroge n measurement (mass/volume)Ordered By: Breanne Ruiz on 05-17-2022 Urea nitrogen [Mass/Vol] 30 mg/dL 7-18 [facility] Thin prep Papanicolaou smear with manual screeningOrdered By: Breanne Ruiz on 05-17-2022 Thin prep Papanicolaou smear with manual screening 8 5-15 [facility] Absolute lymphocyte countOrd ered By: Asad Jamison on 05-03-2022 Lymphocytes Auto (Unsp spec) [#/Vol] 1.95 10*3/uL 0.83-4.51 [facility] Basophil percentageOrdered B y: Asad Jamison on 05-03-2022 Basophils/100 WBC (Bld) 0.9 % 0-1 [facility] Chloride [Moles/Vol] 103 mmol/L 98-107 [facility] Eosinophils/100 WBC (Bld) 3.9 % 0-5 [facility] Glucose [Mass/Vol] 100 mg/dL 74-106 [facility] Comment on above: Fasting Glucose resu lt from 100 to 125 mg/dL suggests IMPAIRED HOMEOSTASIS per A.D.A. criteria. Neutrophils (Bld) [#/Vol] 6.6 10*3/uL 2.0-7.7 [facility] Neutrophils/100 WBC (Bld) 66.2 % 47-70 [facility] Potassium [Moles/Vol] 4.1 mmol/L 3.5-5.1 [facility] Comment on above: Moderate Hemolysis, Result may be falsely increased. Sodium [Moles/Vol] 139 mmol/L 136-145 [facility] WBC (Bld) [#/Vol] 10.0 10*3/uL 4.4-11.0 [facility] Blood erythrocytes count (nu mber/volume)Ordered By: Asad Jamison on 05-03-2022 RBC (Bld) [#/Vol] 4.77 10*6/uL 4.2-5.4 [facility] Blood hemoglobin measurement (mass/volume)Ordered By: Asad Jamison on 05-03-2022 Hemoglobin (Bld) [Mass/Vol] 13.2 g/dL 12.0-15.0 [facility] Blood lymphocytes/100 leukoc ytesOrdered By: Asad Jamison on 05-03-2022 Lymphocytes/100 WBC (Bld) 19.5 % 19-41 [facility] Blood monocytes/100 leukocyt esOrdered By: Asad Jamison on 05-03-2022 Monocytes/100 WBC (Bld) 8.9 % 0-10 [facility] Blood platelet mean volumeOr dered By: Asad Jamison on 05-03-2022 Platelet mean volume (Bld) [Entitic vol] 8.9 fL 6.2-12.0 [facility] Determination of erythrocyte mean corpuscular volume (MCV)Ordered By: Asad Jamison on 05-03-2022 MCV (RBC) [Entitic vol] 88.5 fL 81-99 [facility] Hematocrit Auto (Bld) [Volum e fraction]Ordered By: Asad Jamison on 05-03-2022 Hematocrit (Bld) [Volume fraction] 42.2 % 37-47 [facility] Laboratory - Chemistry and C hemistry - challengeOrdered By: Asad Jamison on 05-03-2022 CO2 [Moles/Vol] 25.0 mmol/L 21.0-32.0 [facility] Urea nitrogen/Creatinine [Mass ratio] 48.2 mg/mg 10-20 [facility] Laboratory - Hematology and Cell countsOrdered By: Asad Jamison on 05-03-2022 Erythrocyte distribution width (RBC) [Entitic vol] 48.7 fL 35.1-43.9 [facility] Erythrocyte distribution width (RBC) [Ratio] 15.0 % 11.6-14.6 [facility] Immature granulocytes/100 WBC (Bld) 0.600 % 0.0-0.9 [facility] Comment on above: IG% - Immature Granu locytes (promyelocytes, myelocytes and metamyelocytes) > 1% indicates that a LEFT SHIFT is Present. MCH (RBC) [Entitic mass] 27.7 pg 27.0-32.0 [facility] Nucleated RBC/100 WBC (Bld) [Ratio] 0 % 0-5 [facility] MCHC Auto (RBC) [Mass/Vol]Or dered By: Asad Jamison on 05-03-2022 MCHC (RBC) [Mass/Vol] 31.3 g/dL 32-36 [facility] No Panel InformationOrdered By: Asad Jamison on 05-03-2022 Estimated GFR (MDRD) Amer 129 mL/min >60 [facility] Comment on above: GFR Calc Estimated GFR (MDRD) Non-Af Amer 107 mL/min >60 [facility] Comment on above: Non- GFR Calc Platelets bldOrdered By: Gonzales Jamison on 05-03-2022 Platelets (Bld) [#/Vol] 488 10*3/uL 150-450 [facility] Serum or plasma calcium jj urement (mass/volume)Ordered By: Asad Jamison on 05-03-2022 Calcium [Mass/Vol] 9.4 mg/dL 8.5-10.1 [facility] Serum or plasma creatinine m easurement (mass/volume)Ordered By: Asad Jamison on 05-03-2022 Creatinine [Mass/Vol] 0.60 mg/dL 0.55-1.02 [facility] Comment on above: The validity of the calculated GFR & GFRAA in patients over 70 years has not been determined. Clinical correlation is essential. Serum or plasma urea nitroge n measurement (mass/volume)Ordered By: Asad Jamison on 05-03-2022 Urea nitrogen [Mass/Vol] 29 mg/dL 7-18 [facility] Thin prep Papanicolaou smear with manual screeningOrdered By: Asad Jamison on 05-03-2022 Thin prep Papanicolaou smear with manual screening 11 - [facility] Absolute lymphocyte countOrd ered By: Asad Jamison on 04-19-2022 Lymphocytes Auto (Unsp spec) [#/Vol] 1.80 10*3/uL 0.83-4.51 [facility] Basophil percentageOrdered B y: Asad Jamison on 04-19-2022 Basophils/100 WBC (Bld) 1.0 % 0-1 [facility] Chloride [Moles/Vol] 106 mmol/L 98-107 [facility] Eosinophils/100 WBC (Bld) 3.6 % 0-5 [facility] Glucose [Mass/Vol] 107 mg/dL 74-106 [facility] Comment on above: Fasting Glucose resu lt from 100 to 125 mg/dL suggests IMPAIRED HOMEOSTASIS per A.D.A. criteria. Neutrophils (Bld) [#/Vol] 4.6 10*3/uL 2.0-7.7 [facility] Neutrophils/100 WBC (Bld) 59.3 % 47-70 [facility] Potassium [Moles/Vol] 4.1 mmol/L 3.5-5.1 [facility] Sodium [Moles/Vol] 140 mmol/L 136-145 [facility] WBC (Bld) [#/Vol] 7.8 10*3/uL 4.4-11.0 [facility] Blood erythrocytes count (nu mber/volume)Ordered By: Asad Jamison on 04-19-2022 RBC (Bld) [#/Vol] 4.98 10*6/uL 4.2-5.4 [facility] Blood hemoglobin measurement (mass/volume)Ordered By: Asad Jamison on 04-19-2022 Hemoglobin (Bld) [Mass/Vol] 13.1 g/dL 12.0-15.0 [facility] Blood lymphocytes/100 leukoc ytesOrdered By: Asad Jamison on 04-19-2022 Lymphocytes/100 WBC (Bld) 23.1 % 19-41 [facility] Blood monocytes/100 leukocyt esOrdered By: Asad Jamison on 04-19-2022 Monocytes/100 WBC (Bld) 12.1 % 0-10 [facility] Blood platelet mean volumeOr dered By: Asad Jamison on 04-19-2022 Platelet mean volume (Bld) [Entitic vol] 8.9 fL 6.2-12.0 [facility] Determination of erythrocyte mean corpuscular volume (MCV)Ordered By: Asad Jamison on 04-19-2022 MCV (RBC) [Entitic vol] 88.0 fL 81-99 [facility] Hematocrit Auto (Bld) [Volum e fraction]Ordered By: Asad Jamison on 04-19-2022 Hematocrit (Bld) [Volume fraction] 43.8 % 37-47 [facility] Laboratory - Chemistry and C hemistry - challengeOrdered By: Asad Jamison on 04-19-2022 CO2 [Moles/Vol] 27.0 mmol/L 21.0-32.0 [facility] Urea nitrogen/Creatinine [Mass ratio] 43.6 mg/mg 10-20 [facility] Laboratory - Hematology and Cell countsOrdered By: Asad Jamison on 04-19-2022 Erythrocyte distribution width (RBC) [Entitic vol] 48.2 fL 35.1-43.9 [facility] Erythrocyte distribution width (RBC) [Ratio] 15.0 % 11.6-14.6 [facility] Immature granulocytes/100 WBC (Bld) 0.900 % 0.0-0.9 [facility] Comment on above: IG% - Immature Granu locytes (promyelocytes, myelocytes and metamyelocytes) > 1% indicates that a LEFT SHIFT is Present. MCH (RBC) [Entitic mass] 26.3 pg 27.0-32.0 [facility] Nucleated RBC/100 WBC (Bld) [Ratio] 0 % 0-5 [facility] MCHC Auto (RBC) [Mass/Vol]Or dered By: Asad Jamison on 04-19-2022 MCHC (RBC) [Mass/Vol] 29.9 g/dL 32-36 [facility] No Panel InformationOrdered By: Asad Jamison on 04-19-2022 Estimated GFR (MDRD) Amer 130 mL/min >60 [facility] Comment on above: GFR Calc Estimated GFR (MDRD) Non-Af Amer 108 mL/min >60 [facility] Comment on above: Non- GFR Calc Platelets bldOrdered By: Gonzales Jamison on 04-19-2022 Platelets (Bld) [#/Vol] 534 10*3/uL 150-450 [facility] Serum or plasma calcium jj urement (mass/volume)Ordered By: Asda Jamison on 04-19-2022 Calcium [Mass/Vol] 9.6 mg/dL 8.5-10.1 [facility] Serum or plasma creatinine m easurement (mass/volume)Ordered By: Asad Jamison on 04-19-2022 Creatinine [Mass/Vol] 0.60 mg/dL 0.55-1.02 [facility] Comment on above: The validity of the calculated GFR & GFRAA in patients over 70 years has not been determined. Clinical correlation is essential. Serum or plasma urea nitroge n measurement (mass/volume)Ordered By: Asad Jamison on 04-19-2022 Urea nitrogen [Mass/Vol] 26 mg/dL 7-18 [facility] Thin prep Papanicolaou smear with manual screeningOrdered By: Asad Jamison on 04-19-2022 Thin prep Papanicolaou smear with manual screening 7 -15 [facility] Absolute lymphocyte countOrd ered By: Asad Jamison on 04-05-2022 Lymphocytes Auto (Unsp spec) [#/Vol] 1.31 10*3/uL 0.83-4.51 [facility] Basophil percentageOrdered B y: Asad Jamison on 04-05-2022 Basophils/100 WBC (Bld) 1.0 % 0-1 [facility] Chloride [Moles/Vol] 108 mmol/L 98-107 [facility] Eosinophils/100 WBC (Bld) 3.6 % 0-5 [facility] Glucose [Mass/Vol] 105 mg/dL 74-106 [facility] Comment on above: Fasting Glucose resu lt from 100 to 125 mg/dL suggests IMPAIRED HOMEOSTASIS per A.D.A. criteria. Neutrophils (Bld) [#/Vol] 6.1 10*3/uL 2.0-7.7 [facility] Neutrophils/100 WBC (Bld) 68.9 % 47-70 [facility] Potassium [Moles/Vol] 4.0 mmol/L 3.5-5.1 [facility] Sodium [Moles/Vol] 141 mmol/L 136-145 [facility] WBC (Bld) [#/Vol] 8.9 10*3/uL 4.4-11.0 [facility] Blood erythrocytes count (nu mber/volume)Ordered By: Asad Jamison on 04-05-2022 RBC (Bld) [#/Vol] 4.79 10*6/uL 4.2-5.4 [facility] Blood hemoglobin measurement (mass/volume)Ordered By: Asda Jamison on 04-05-2022 Hemoglobin (Bld) [Mass/Vol] 13.0 g/dL 12.0-15.0 [facility] Blood lymphocytes/100 leukoc ytesOrdered By: Asad Jamison on 04-05-2022 Lymphocytes/100 WBC (Bld) 14.7 % 19-41 [facility] Blood monocytes/100 leukocyt esOrdered By: Asad Jamison on 04-05-2022 Monocytes/100 WBC (Bld) 11.4 % 0-10 [facility] Blood platelet mean volumeOr dered By: Asad Jamison on 04-05-2022 Platelet mean volume (Bld) [Entitic vol] 8.7 fL 6.2-12.0 [facility] Determination of erythrocyte mean corpuscular volume (MCV)Ordered By: Asad Jamison on 04-05-2022 MCV (RBC) [Entitic vol] 87.9 fL 81-99 [facility] Hematocrit Auto (Bld) [Volum e fraction]Ordered By: Asad Jamison on 04-05-2022 Hematocrit (Bld) [Volume fraction] 42.1 % 37-47 [facility] Laboratory - Chemistry and C hemistry - challengeOrdered By: Asad Jamison on 04-05-2022 CO2 [Moles/Vol] 27.0 mmol/L 21.0-32.0 [facility] Urea nitrogen/Creatinine [Mass ratio] 44.3 mg/mg 10-20 [facility] Laboratory - Hematology and Cell countsOrdered By: Asad Jamison on 04-05-2022 Erythrocyte distribution width (RBC) [Entitic vol] 49.4 fL 35.1-43.9 [facility] Erythrocyte distribution width (RBC) [Ratio] 15.3 % 11.6-14.6 [facility] Immature granulocytes/100 WBC (Bld) 0.400 % 0.0-0.9 [facility] Comment on above: IG% - Immature Granu locytes (promyelocytes, myelocytes and metamyelocytes) > 1% indicates that a LEFT SHIFT is Present. MCH (RBC) [Entitic mass] 27.1 pg 27.0-32.0 [facility] Nucleated RBC/100 WBC (Bld) [Ratio] 0 % 0-5 [facility] MCHC Auto (RBC) [Mass/Vol]Or dered By: Asad Jamison on 04-05-2022 MCHC (RBC) [Mass/Vol] 30.9 g/dL 32-36 [facility] No Panel InformationOrdered By: Asad Jamison on 04-05-2022 Estimated GFR (MDRD) Amer 127 mL/min >60 [facility] Comment on above: GFR Calc Estimated GFR (MDRD) Non-Af Amer 105 mL/min >60 [facility] Comment on above: Non- GFR Calc Platelets bldOrdered By: Gonzales Jamison on 04-05-2022 Platelets (Bld) [#/Vol] 516 10*3/uL 150-450 [facility] Serum or plasma calcium jj urement (mass/volume)Ordered By: Asad Jamison on 04-05-2022 Calcium [Mass/Vol] 9.6 mg/dL 8.5-10.1 [facility] Serum or plasma creatinine m easurement (mass/volume)Ordered By: Asad Jamison on 04-05-2022 Creatinine [Mass/Vol] 0.61 mg/dL 0.55-1.02 [facility] Comment on above: The validity of the calculated GFR & GFRAA in patients over 70 years has not been determined. Clinical correlation is essential. Serum or plasma urea nitroge n measurement (mass/volume)Ordered By: Asad Jamison on 04-05-2022 Urea nitrogen [Mass/Vol] 27 mg/dL 7-18 [facility] Thin prep Papanicolaou smear with manual screeningOrdered By: Asad Jamison on 04-05-2022 Thin prep Papanicolaou smear with manual screening 6 5-15 [facility] Absolute lymphocyte countOrd ered By: Asad Jamison on 03-22-2022 Lymphocytes Auto (Unsp spec) [#/Vol] 1.60 10*3/uL 0.83-4.51 [facility] Basophil percentageOrdered B y: Asad Jamison on 03-22-2022 Basophils/100 WBC (Bld) 1.1 % 0-1 [facility] Chloride [Moles/Vol] 108 mmol/L 98-107 [facility] Eosinophils/100 WBC (Bld) 2.9 % 0-5 [facility] Glucose [Mass/Vol] 96 mg/dL 74-106 [facility] Neutrophils (Bld) [#/Vol] 5.1 10*3/uL 2.0-7.7 [facility] Neutrophils/100 WBC (Bld) 65.2 % 47-70 [facility] Potassium [Moles/Vol] 4.1 mmol/L 3.5-5.1 [facility] Sodium [Moles/Vol] 142 mmol/L 136-145 [facility] WBC (Bld) [#/Vol] 7.9 10*3/uL 4.4-11.0 [facility] Blood erythrocytes count (nu mber/volume)Ordered By: Asad Jamison on 03-22-2022 RBC (Bld) [#/Vol] 4.84 10*6/uL 4.2-5.4 [facility] Blood hemoglobin measurement (mass/volume)Ordered By: Asad Jamison on 03-22-2022 Hemoglobin (Bld) [Mass/Vol] 13.1 g/dL 12.0-15.0 [facility] Blood lymphocytes/100 leukoc ytesOrdered By: Asad Jamison on 03-22-2022 Lymphocytes/100 WBC (Bld) 20.3 % 19-41 [facility] Blood monocytes/100 leukocyt esOrdered By: Asad Jamison on 03-22-2022 Monocytes/100 WBC (Bld) 10.2 % 0-10 [facility] Blood platelet mean volumeOr dered By: Asad Jamison on 03-22-2022 Platelet mean volume (Bld) [Entitic vol] 9.1 fL 6.2-12.0 [facility] Determination of erythrocyte mean corpuscular volume (MCV)Ordered By: Asad Jamison on 03-22-2022 MCV (RBC) [Entitic vol] 87.8 fL 81-99 [facility] Hematocrit Auto (Bld) [Volum e fraction]Ordered By: Asad Jamison on 03-22-2022 Hematocrit (Bld) [Volume fraction] 42.5 % 37-47 [facility] Laboratory - Chemistry and C hemistry - challengeOrdered By: Asad Jamison on 03-22-2022 CO2 [Moles/Vol] 26.0 mmol/L 21.0-32.0 [facility] Urea nitrogen/Creatinine [Mass ratio] 34.4 mg/mg 10-20 [facility] Laboratory - Hematology and Cell countsOrdered By: Asad Jamison on 03-22-2022 Erythrocyte distribution width (RBC) [Entitic vol] 48.4 fL 35.1-43.9 [facility] Erythrocyte distribution width (RBC) [Ratio] 15.0 % 11.6-14.6 [facility] Immature granulocytes/100 WBC (Bld) 0.300 % 0.0-0.9 [facility] Comment on above: IG% - Immature Granu locytes (promyelocytes, myelocytes and metamyelocytes) > 1% indicates that a LEFT SHIFT is Present. MCH (RBC) [Entitic mass] 27.1 pg 27.0-32.0 [facility] Nucleated RBC/100 WBC (Bld) [Ratio] 0 % 0-5 [facility] MCHC Auto (RBC) [Mass/Vol]Or dered By: Asad Jamison on 03-22-2022 MCHC (RBC) [Mass/Vol] 30.8 g/dL 32-36 [facility] No Panel InformationOrdered By: Asad Jamison on 03-22-2022 Estimated GFR (MDRD) Amer 120 mL/min >60 [facility] Comment on above: GFR Calc Estimated GFR (MDRD) Non-Af Amer 99 mL/min >60 [facility] Comment on above: Non- GFR Calc Platelets bldOrdered By: Gonzales Jamison on 03-22-2022 Platelets (Bld) [#/Vol] 522 10*3/uL 150-450 [facility] Serum or plasma calcium jj urement (mass/volume)Ordered By: Asad Jamison on 03-22-2022 Calcium [Mass/Vol] 9.4 mg/dL 8.5-10.1 [facility] Serum or plasma creatinine m easurement (mass/volume)Ordered By: Asad Jamison on 03-22-2022 Creatinine [Mass/Vol] 0.64 mg/dL 0.55-1.02 [facility] Comment on above: The validity of the calculated GFR & GFRAA in patients over 70 years has not been determined. Clinical correlation is essential. Serum or plasma urea nitroge n measurement (mass/volume)Ordered By: Asad Jamison on 03-22-2022 Urea nitrogen [Mass/Vol] 22 mg/dL 7-18 [facility] Thin prep Papanicolaou smear with manual screeningOrdered By: Asad Jamison on 03-22-2022 Thin prep Papanicolaou smear with manual screening 8 5-15 [facility] Absolute lymphocyte countOrd ered By: Asad Jamison on 03-08-2022 Lymphocytes Auto (Unsp spec) [#/Vol] 1.49 10*3/uL 0.83-4.51 [facility] Basophil percentageOrdered B y: Asad Jamison on 03-08-2022 Basophils/100 WBC (Bld) 1.3 % 0-1 [facility] Chloride [Moles/Vol] 108 mmol/L 98-107 [facility] Eosinophils/100 WBC (Bld) 3.9 % 0-5 [facility] Glucose [Mass/Vol] 105 mg/dL 74-106 [facility] Comment on above: Fasting Glucose resu lt from 100 to 125 mg/dL suggests IMPAIRED HOMEOSTASIS per A.D.A. criteria. Neutrophils (Bld) [#/Vol] 4.3 10*3/uL 2.0-7.7 [facility] Neutrophils/100 WBC (Bld) 61.3 % 47-70 [facility] Potassium [Moles/Vol] 4.1 mmol/L 3.5-5.1 [facility] Sodium [Moles/Vol] 142 mmol/L 136-145 [facility] WBC (Bld) [#/Vol] 7.1 10*3/uL 4.4-11.0 [facility] Blood erythrocytes count (nu mber/volume)Ordered By: Asad Jamison on 03-08-2022 RBC (Bld) [#/Vol] 4.87 10*6/uL 4.2-5.4 [facility] Blood hemoglobin measurement (mass/volume)Ordered By: Asad Jamison on 03-08-2022 Hemoglobin (Bld) [Mass/Vol] 13.0 g/dL 12.0-15.0 [facility] Blood lymphocytes/100 leukoc ytesOrdered By: Asad Jamison on 03-08-2022 Lymphocytes/100 WBC (Bld) 21.0 % 19-41 [facility] Blood monocytes/100 leukocyt esOrdered By: Asad Jamison on 03-08-2022 Monocytes/100 WBC (Bld) 12.1 % 0-10 [facility] Blood platelet mean volumeOr dered By: Asad Jamison on 03-08-2022 Platelet mean volume (Bld) [Entitic vol] 8.9 fL 6.2-12.0 [facility] Determination of erythrocyte mean corpuscular volume (MCV)Ordered By: Asad Jamison on 03-08-2022 MCV (RBC) [Entitic vol] 87.9 fL 81-99 [facility] Hematocrit Auto (Bld) [Volum e fraction]Ordered By: Asad Jamison on 03-08-2022 Hematocrit (Bld) [Volume fraction] 42.8 % 37-47 [facility] Laboratory - Chemistry and C hemistry - challengeOrdered By: Asad Jamison on 03-08-2022 CO2 [Moles/Vol] 27.0 mmol/L 21.0-32.0 [facility] Urea nitrogen/Creatinine [Mass ratio] 47.1 mg/mg 10-20 [facility] Laboratory - Hematology and Cell countsOrdered By: Asad Jamison on 03-08-2022 Erythrocyte distribution width (RBC) [Entitic vol] 47.6 fL 35.1-43.9 [facility] Erythrocyte distribution width (RBC) [Ratio] 14.8 % 11.6-14.6 [facility] Immature granulocytes/100 WBC (Bld) 0.400 % 0.0-0.9 [facility] Comment on above: IG% - Immature Granu locytes (promyelocytes, myelocytes and metamyelocytes) > 1% indicates that a LEFT SHIFT is Present. MCH (RBC) [Entitic mass] 26.7 pg 27.0-32.0 [facility] Nucleated RBC/100 WBC (Bld) [Ratio] 0 % 0-5 [facility] MCHC Auto (RBC) [Mass/Vol]Or dered By: Asad Jamison on 03-08-2022 MCHC (RBC) [Mass/Vol] 30.4 g/dL 32-36 [facility] No Panel InformationOrdered By: Asad Jamison on 03-08-2022 Estimated GFR (MDRD) Amer 131 mL/min >60 [facility] Comment on above: GFR Calc Estimated GFR (MDRD) Non-Af Amer 108 mL/min >60 [facility] Comment on above: Non- GFR Calc Platelets bldOrdered By: Gonzales Jamison on 03-08-2022 Platelets (Bld) [#/Vol] 521 10*3/uL 150-450 [facility] Serum or plasma calcium jj urement (mass/volume)Ordered By: Asad Jamison on 03-08-2022 Calcium [Mass/Vol] 9.5 mg/dL 8.5-10.1 [facility] Serum or plasma creatinine m easurement (mass/volume)Ordered By: Asad Jamison on 03-08-2022 Creatinine [Mass/Vol] 0.59 mg/dL 0.55-1.02 [facility] Comment on above: The validity of the calculated GFR & GFRAA in patients over 70 years has not been determined. Clinical correlation is essential. Serum or plasma urea nitroge n measurement (mass/volume)Ordered By: Asad Jamison on 03-08-2022 Urea nitrogen [Mass/Vol] 28 mg/dL - [facility] Thin prep Papanicolaou smear with manual screeningOrdered By: Asad Jamison on 03-08-2022 Thin prep Papanicolaou smear with manual screening 7 - [facility] Absolute lymphocyte countOrd ered By: Asad Jamison on 02-22-2022 Lymphocytes Auto (Unsp spec) [#/Vol] 1.48 10*3/uL 0.83-4.51 [facility] Basophil percentageOrdered B y: Asad Jamison on 02-22-2022 Basophils/100 WBC (Bld) 1.2 % 0-1 [facility] Chloride [Moles/Vol] 109 mmol/L 98-107 [facility] Eosinophils/100 WBC (Bld) 5.9 % 0-5 [facility] Glucose [Mass/Vol] 103 mg/dL 74-106 [facility] Comment on above: Fasting Glucose resu lt from 100 to 125 mg/dL suggests IMPAIRED HOMEOSTASIS per A.D.A. criteria. Neutrophils (Bld) [#/Vol] 4.1 10*3/uL 2.0-7.7 [facility] Neutrophils/100 WBC (Bld) 58.7 % 47-70 [facility] Potassium [Moles/Vol] 4.3 mmol/L 3.5-5.1 [facility] Sodium [Moles/Vol] 143 mmol/L 136-145 [facility] WBC (Bld) [#/Vol] 6.9 10*3/uL 4.4-11.0 [facility] Blood erythrocytes count (nu mber/volume)Ordered By: Asad Jamison on 02-22-2022 RBC (Bld) [#/Vol] 4.90 10*6/uL 4.2-5.4 [facility] Blood hemoglobin measurement (mass/volume)Ordered By: Asad Jamison on 02-22-2022 Hemoglobin (Bld) [Mass/Vol] 13.1 g/dL 12.0-15.0 [facility] Blood lymphocytes/100 leukoc ytesOrdered By: Asad Jamison on 02-22-2022 Lymphocytes/100 WBC (Bld) 21.4 % 19-41 [facility] Blood monocytes/100 leukocyt esOrdered By: Asad Jamison on 02-22-2022 Monocytes/100 WBC (Bld) 12.4 % 0-10 [facility] Blood platelet mean volumeOr dered By: Asad Jamison on 02-22-2022 Platelet mean volume (Bld) [Entitic vol] 9.0 fL 6.2-12.0 [facility] Determination of erythrocyte mean corpuscular volume (MCV)Ordered By: Asad Jamison on 02-22-2022 MCV (RBC) [Entitic vol] 88.2 fL 81-99 [facility] Hematocrit Auto (Bld) [Volum e fraction]Ordered By: Asad Jamison on 02-22-2022 Hematocrit (Bld) [Volume fraction] 43.2 % 37-47 [facility] Laboratory - Chemistry and C hemistry - challengeOrdered By: Asad Jamison on 02-22-2022 CO2 [Moles/Vol] 25.0 mmol/L 21.0-32.0 [facility] Urea nitrogen/Creatinine [Mass ratio] 48.9 mg/mg 10-20 [facility] Laboratory - Hematology and Cell countsOrdered By: Asad Jamison on 02-22-2022 Erythrocyte distribution width (RBC) [Entitic vol] 48.8 fL 35.1-43.9 [facility] Erythrocyte distribution width (RBC) [Ratio] 15.1 % 11.6-14.6 [facility] Immature granulocytes/100 WBC (Bld) 0.400 % 0.0-0.9 [facility] Comment on above: IG% - Immature Granu locytes (promyelocytes, myelocytes and metamyelocytes) > 1% indicates that a LEFT SHIFT is Present. MCH (RBC) [Entitic mass] 26.7 pg 27.0-32.0 [facility] Nucleated RBC/100 WBC (Bld) [Ratio] 0 % 0-5 [facility] MCHC Auto (RBC) [Mass/Vol]Or dered By: Asad Jamison on 02-22-2022 MCHC (RBC) [Mass/Vol] 30.3 g/dL 32-36 [facility] No Panel InformationOrdered By: Asad Jamison on 02-22-2022 Estimated GFR (MDRD) Amer 126 mL/min >60 [facility] Comment on above: GFR Calc Estimated GFR (MDRD) Non-Af Amer 104 mL/min >60 [facility] Comment on above: Non- GFR Calc Platelets bldOrdered By: Gonzales Jamison on 02-22-2022 Platelets (Bld) [#/Vol] 492 10*3/uL 150-450 [facility] Serum or plasma calcium jj urement (mass/volume)Ordered By: Asad Jamison on 02-22-2022 Calcium [Mass/Vol] 9.7 mg/dL 8.5-10.1 [facility] Serum or plasma creatinine m easurement (mass/volume)Ordered By: Asad Jamsion on 02-22-2022 Creatinine [Mass/Vol] 0.61 mg/dL 0.55-1.02 [facility] Comment on above: The validity of the calculated GFR & GFRAA in patients over 70 years has not been determined. Clinical correlation is essential. Serum or plasma urea nitroge n measurement (mass/volume)Ordered By: Asad Jamison on 02-22-2022 Urea nitrogen [Mass/Vol] 30 mg/dL 7-18 [facility] Thin prep Papanicolaou smear with manual screeningOrdered By: Asad Jamison on 02-22-2022 Thin prep Papanicolaou smear with manual screening 9 5-15 [facility] Absolute lymphocyte counton 02-08-2022 Lymphocytes Auto (Unsp spec) [#/Vol] 1.37 10*3/uL 0.83-4.51 [facility] Work Phone: Basophil percentageon 2021 Basophils/100 WBC (Bld) 1.3 % 0-1 [facility] Work Phone: Chloride [Moles/Vol] 109 mmol/L 98-107 [facility] Work Phone: Eosinophils/100 WBC (Bld) 4.0 % 0-5 [facility] Work Phone: Glucose [Mass/Vol] 99 mg/dL 74-106 [facility] Work Phone: Neutrophils (Bld) [#/Vol] 4.1 10*3/uL 2.0-7.7 [facility] Work Phone: Neutrophils/100 WBC (Bld) 59.3 % 47-70 [facility] Work Phone: Potassium [Moles/Vol] 4.1 mmol/L 3.5-5.1 [facility] Work Phone: Sodium [Moles/Vol] 143 mmol/L 136-145 [facility] Work Phone: WBC (Bld) [#/Vol] 7.0 10*3/uL 4.4-11.0 [facility] Work Phone: Blood erythrocytes count (nu mber/volume)on 02-08-2022 RBC (Bld) [#/Vol] 5.00 10*6/uL 4.2-5.4 [facility]: Blood hemoglobin measurement (mass/volume)on 02-08-2022 Hemoglobin (Bld) [Mass/Vol] 13.0 g/dL 12.0-15.0 [facility] Work Phone: Blood lymphocytes/100 leukoc yteson 02-08-2022 Lymphocytes/100 WBC (Bld) 19.7 % 19-41 [facility] Work Phone: Blood monocytes/100 leukocyt eson 02-08-2022 Monocytes/100 WBC (Bld) 15.4 % 0-10 [facility] Work Phone: Blood platelet mean volumeon 02-08-2022 Platelet mean volume (Bld) [Entitic vol] 8.6 fL 6.2-12.0 [facility] Work Phone: Determination of erythrocyte mean corpuscular volume (MCV)on 02-08-2022 MCV (RBC) [Entitic vol] 92.4 fL 81-99 [facility] Work Phone: Hematocrit Auto (Bld) [Volum e fraction]on 02-08-2022 Hematocrit (Bld) [Volume fraction] 46.2 % 37-47 [facility] Work Phone: Laboratory - Chemistry and C hemistry - challengeon 02-08-2022 CO2 [Moles/Vol] 24.0 mmol/L 21.0-32.0 [facility] Work Phone: Urea nitrogen/Creatinine [Mass ratio] 38.5 mg/mg 10-20 [facility] Work Phone: [phone] Laboratory - Hematology and Cell countson 02-08-2022 Erythrocyte distribution width (RBC) [Entitic vol] 51.8 fL 35.1-43.9 [facility] Work Phone: [phone] Erythrocyte distribution width (RBC) [Ratio] 15.3 % 11.6-14.6 [facility] Work Phone: [phone] Immature granulocytes/100 WBC (Bld) 0.300 % 0.0-0.9 [facility] Work Phone: [phone] Comment on above: IG% - Immature Granu locytes (promyelocytes, myelocytes and metamyelocytes) > 1% indicates that a LEFT SHIFT is Present. MCH (RBC) [Entitic mass] 26.0 pg 27.0-32.0 [facility] Work Phone: [phone] Nucleated RBC/100 WBC (Bld) [Ratio] 0 % 0-5 [facility] Work Phone: [phone] MCHC Auto (RBC) [Mass/Vol]on 02-08-2022 MCHC (RBC) [Mass/Vol] 28.1 g/dL 32-36 [facility] Work Phone: No Panel Informationon 02-08 Estimated GFR (MDRD) Amer 118 mL/min >60 [facility] Work Phone: Comment on above: GFR Calc Estimated GFR (MDRD) Non-Af Amer 98 mL/min >60 [facility] Work Phone: [phone] Comment on above: Non- GFR Calc Platelets bldon 02-08-2022 Platelets (Bld) [#/Vol] 504 10*3/uL 150-450 [facility] Work Phone: [phone] Serum or plasma calcium jj urement (mass/volume)on 02-08-2022 Calcium [Mass/Vol] 10.0 mg/dL 8.5-10.1 [facility] Work Phone: [phone] Serum or plasma creatinine m easurement (mass/volume)on 02-08-2022 Creatinine [Mass/Vol] 0.65 mg/dL 0.55-1.02 [facility] Work Phone: Comment on above: The validity of the calculated GFR & GFRAA in patients over 70 years has not been determined. Clinical correlation is essential. Serum or plasma urea nitroge n measurement (mass/volume)on 02-08-2022 Urea nitrogen [Mass/Vol] 25 mg/dL 7-18 [facility] Work Phone: Thin prep Papanicolaou smear with manual screeningon 02-08-2022 Thin prep Papanicolaou smear with manual screening 10 5-15 [facility] Work Phone: Absolute lymphocyte counton 01-25-2022 Lymphocytes Auto (Unsp spec) [#/Vol] 1.61 10*3/uL 0.83-4.51 [facility] Work Phone: Basophil percentageon 2021 Basophils/100 WBC (Bld) 1.6 % 0-1 [facility] Work Phone: Chloride [Moles/Vol] 110 mmol/L 98-107 [facility] Work Phone: Eosinophils/100 WBC (Bld) 3.6 % 0-5 [facility] Work Phone: Glucose [Mass/Vol] 109 mg/dL 74-106 [facility] Work Phone: Comment on above: Fasting Glucose resu lt from 100 to 125 mg/dL suggests IMPAIRED HOMEOSTASIS per A.D.A. criteria. Neutrophils (Bld) [#/Vol] 3.8 10*3/uL 2.0-7.7 [facility] Work Phone: Neutrophils/100 WBC (Bld) 55.5 % 47-70 [facility] Work Phone: Potassium [Moles/Vol] 4.0 mmol/L 3.5-5.1 [facility] Work Phone: Sodium [Moles/Vol] 142 mmol/L 136-145 [facility] Work Phone: WBC (Bld) [#/Vol] 6.9 10*3/uL 4.4-11.0 [facility] Work Phone: Blood erythrocytes count (nu mber/volume)on 01-25-2022 RBC (Bld) [#/Vol] 4.66 10*6/uL 4.2-5.4 [facility] Work Phone: Blood hemoglobin measurement (mass/volume)on 01-25-2022 Hemoglobin (Bld) [Mass/Vol] 12.5 g/dL 12.0-15.0 [facility] Work Phone: Blood lymphocytes/100 leukoc yteson 01-25-2022 Lymphocytes/100 WBC (Bld) 23.4 % 19-41 [facility] Work Phone: Blood monocytes/100 leukocyt eson 01-25-2022 Monocytes/100 WBC (Bld) 15.3 % 0-10 [facility] Work Phone: Blood platelet mean volumeon 01-25-2022 Platelet mean volume (Bld) [Entitic vol] 9.0 fL 6.2-12.0 [facility] Work Phone: Determination of erythrocyte mean corpuscular volume (MCV)on 01-25-2022 MCV (RBC) [Entitic vol] 88.6 fL 81-99 [facility] Work Phone: [phone] Hematocrit Auto (Bld) [Volum e fraction]on 01-25-2022 Hematocrit (Bld) [Volume fraction] 41.3 % 37-47 [facility] Work Phone: Laboratory - Chemistry and C hemistry - challengeon 01-25-2022 CO2 [Moles/Vol] 23.0 mmol/L 21.0-32.0 [facility] Work Phone: Urea nitrogen/Creatinine [Mass ratio] 38.3 mg/mg 10-20 [facility] Work Phone: [phone] Laboratory - Hematology and Cell countson 01-25-2022 Erythrocyte distribution width (RBC) [Entitic vol] 49.9 fL 35.1-43.9 [facility] Work Phone: Erythrocyte distribution width (RBC) [Ratio] 15.4 % 11.6-14.6 [facility] Work Phone: [phone] Immature granulocytes/100 WBC (Bld) 0.600 % 0.0-0.9 [facility] Work Phone: [phone] Comment on above: IG% - Immature Granu locytes (promyelocytes, myelocytes and metamyelocytes) > 1% indicates that a LEFT SHIFT is Present. MCH (RBC) [Entitic mass] 26.8 pg 27.0-32.0 [facility] Work Phone: [phone] Nucleated RBC/100 WBC (Bld) [Ratio] 0 % 0-5 [facility] Work Phone: [phone] MCHC Auto (RBC) [Mass/Vol]on 01-25-2022 MCHC (RBC) [Mass/Vol] 30.3 g/dL 32-36 [facility] Work Phone: No Panel Informationon 01-25 Estimated GFR (MDRD) Amer 103 mL/min >60 [facility] Work Phone: Comment on above: GFR Calc Estimated GFR (MDRD) Non-Af Amer 85 mL/min >60 [facility] Work Phone: Comment on above: Non- GFR Calc Platelets bldon 01-25-2022 Platelets (Bld) [#/Vol] 513 10*3/uL 150-450 [facility] Work Phone: [phone] Serum or plasma calcium jj urement (mass/volume)on 01-25-2022 Calcium [Mass/Vol] 9.6 mg/dL 8.5-10.1 [facility] Work Phone: [phone] Serum or plasma creatinine m easurement (mass/volume)on 01-25-2022 Creatinine [Mass/Vol] 0.73 mg/dL 0.55-1.02 [facility] Work Phone: [phone] Comment on above: The validity of the calculated GFR & GFRAA in patients over 70 years has not been determined. Clinical correlation is essential. Serum or plasma urea nitroge n measurement (mass/volume)on 01-25-2022 Urea nitrogen [Mass/Vol] 28 mg/dL 7-18 [facility] Work Phone: Thin prep Papanicolaou smear with manual screeningon 01-25-2022 Thin prep Papanicolaou smear with manual screening 9 5-15 [facility] Work Phone: Absolute lymphocyte counton 01-11-2022 Lymphocytes Auto (Unsp spec) [#/Vol] 1.57 10*3/uL 0.83-4.51 [facility] Work Phone: Basophil percentageon 2021 Basophils/100 WBC (Bld) 1.3 % 0-1 [facility] Work Phone: Chloride [Moles/Vol] 107 mmol/L 98-107 [facility] Work Phone: Eosinophils/100 WBC (Bld) 4.7 % 0-5 [facility] Work Phone: Glucose [Mass/Vol] 89 mg/dL 74-106 [facility] Work Phone: Neutrophils (Bld) [#/Vol] 3.5 10*3/uL 2.0-7.7 [facility] Work Phone: Neutrophils/100 WBC (Bld) 56.0 % 47-70 [facility] Work Phone: Potassium [Moles/Vol] 4.0 mmol/L 3.5-5.1 [facility] Work Phone: Sodium [Moles/Vol] 139 mmol/L 136-145 [facility] Work Phone: WBC (Bld) [#/Vol] 6.3 10*3/uL 4.4-11.0 [facility] Work Phone: Blood erythrocytes count (nu mber/volume)on 01-11-2022 RBC (Bld) [#/Vol] 4.71 10*6/uL 4.2-5.4 [facility] Work Phone: Blood hemoglobin measurement (mass/volume)on 01-11-2022 Hemoglobin (Bld) [Mass/Vol] 12.4 g/dL 12.0-15.0 [facility] Work Phone: Blood lymphocytes/100 leukoc yteson 01-11-2022 Lymphocytes/100 WBC (Bld) 24.8 % 19-41 [facility] Work Phone: Blood monocytes/100 leukocyt eson 01-11-2022 Monocytes/100 WBC (Bld) 12.7 % 0-10 [facility] Work Phone: Blood platelet mean volumeon 01-11-2022 Platelet mean volume (Bld) [Entitic vol] 8.8 fL 6.2-12.0 [facility] Work Phone: Determination of erythrocyte mean corpuscular volume (MCV)on 01-11-2022 MCV (RBC) [Entitic vol] 89.2 fL 81-99 [facility] Work Phone: Hematocrit Auto (Bld) [Volum e fraction]on 01-11-2022 Hematocrit (Bld) [Volume fraction] 42.0 % 37-47 [facility] Work Phone: Laboratory - Chemistry and C hemistry - challengeon 01-11-2022 CO2 [Moles/Vol] 26.0 mmol/L 21.0-32.0 [facility] Work Phone: Urea nitrogen/Creatinine [Mass ratio] 45.6 mg/mg 10-20 [facility] Work Phone: Laboratory - Hematology and Cell countson 01-11-2022 Erythrocyte distribution width (RBC) [Entitic vol] 51.2 fL 35.1-43.9 [facility] Work Phone: [phone] Erythrocyte distribution width (RBC) [Ratio] 15.6 % 11.6-14.6 [facility] Work Phone: [phone] Immature granulocytes/100 WBC (Bld) 0.500 % 0.0-0.9 [facility] Work Phone: Comment on above: IG% - Immature Granu locytes (promyelocytes, myelocytes and metamyelocytes) > 1% indicates that a LEFT SHIFT is Present. MCH (RBC) [Entitic mass] 26.3 pg 27.0-32.0 [facility] Work Phone: Nucleated RBC/100 WBC (Bld) [Ratio] 0 % 0-5 [facility] Work Phone: [phone] MCHC Auto (RBC) [Mass/Vol]on 01-11-2022 MCHC (RBC) [Mass/Vol] 29.5 g/dL 32-36 [facility] Work Phone: No Panel Informationon 01-11 Estimated GFR (MDRD) Amer 158 mL/min >60 [facility] Work Phone: Comment on above: GFR Calc Estimated GFR (MDRD) Non-Af Amer 131 mL/min >60 [facility] Work Phone: Comment on above: Non- GFR Calc Platelets bldon 01-11-2022 Platelets (Bld) [#/Vol] 496 10*3/uL 150-450 [facility] Work Phone: Serum or plasma calcium jj urement (mass/volume)on 01-11-2022 Calcium [Mass/Vol] 9.7 mg/dL 8.5-10.1 [facility] Work Phone: [phone] Serum or plasma creatinine m easurement (mass/volume)on 01-11-2022 Creatinine [Mass/Vol] 0.50 mg/dL 0.55-1.02 [facility] Work Phone: Comment on above: The validity of the calculated GFR & GFRAA in patients over 70 years has not been determined. Clinical correlation is essential. Serum or plasma urea nitroge n measurement (mass/volume)on 01-11-2022 Urea nitrogen [Mass/Vol] 23 mg/dL 7-18 [facility] Work Phone: [phone] Thin prep Papanicolaou smear with manual screeningon 01-11-2022 Thin prep Papanicolaou smear with manual screening 6 5-15 [facility] Work Phone: Absolute lymphocyte counton 12-28-2021 Lymphocytes Auto (Unsp spec) [#/Vol] 1.56 10*3/uL 0.83-4.51 [facility] Work Phone: Basophil percentageon 2021 Basophils/100 WBC (Bld) 1.1 % 0-1 [facility] Work Phone: Chloride [Moles/Vol] 106 mmol/L 98-107 [facility] Work Phone: Eosinophils/100 WBC (Bld) 3.4 % 0-5 [facility] Work Phone: Glucose [Mass/Vol] 93 mg/dL 74-106 [facility] Work Phone: Neutrophils (Bld) [#/Vol] 4.3 10*3/uL 2.0-7.7 [facility] Work Phone: Neutrophils/100 WBC (Bld) 61.0 % 47-70 [facility] Work Phone: Potassium [Moles/Vol] 3.7 mmol/L 3.5-5.1 [facility] Work Phone: Sodium [Moles/Vol] 139 mmol/L 136-145 [facility] Work Phone: WBC (Bld) [#/Vol] 7.0 10*3/uL 4.4-11.0 [facility] Work Phone: Blood erythrocytes count (nu mber/volume)on 12-28-2021 RBC (Bld) [#/Vol] 4.69 10*6/uL 4.2-5.4 [facility] Work Phone: Blood hemoglobin measurement (mass/volume)on 12-28-2021 Hemoglobin (Bld) [Mass/Vol] 12.6 g/dL 12.0-15.0 [facility] Work Phone: Blood lymphocytes/100 leukoc yteson 12-28-2021 Lymphocytes/100 WBC (Bld) 22.2 % 19-41 [facility] Work Phone: [phone] Blood monocytes/100 leukocyt eson 12-28-2021 Monocytes/100 WBC (Bld) 11.6 % 0-10 [facility] Work Phone: Blood platelet mean volumeon 12-28-2021 Platelet mean volume (Bld) [Entitic vol] 8.5 fL 6.2-12.0 [facility] Work Phone: Determination of erythrocyte mean corpuscular volume (MCV)on 12-28-2021 MCV (RBC) [Entitic vol] 90.2 fL 81-99 [facility] Work Phone: [phone] Hematocrit Auto (Bld) [Volum e fraction]on 12-28-2021 Hematocrit (Bld) [Volume fraction] 42.3 % 37-47 [facility] Work Phone: Laboratory - Chemistry and C hemistry - challengeon 12-28-2021 CO2 [Moles/Vol] 26.0 mmol/L 21.0-32.0 [facility] Work Phone: Urea nitrogen/Creatinine [Mass ratio] 34.9 mg/mg 10-20 [facility] Work Phone: [phone] Laboratory - Hematology and Cell countson 12-28-2021 Erythrocyte distribution width (RBC) [Entitic vol] 51.9 fL 35.1-43.9 [facility] Work Phone: [phone] Erythrocyte distribution width (RBC) [Ratio] 15.9 % 11.6-14.6 [facility] Work Phone: [phone] Immature granulocytes/100 WBC (Bld) 0.700 % 0.0-0.9 [facility] Work Phone: Comment on above: IG% - Immature Granu locytes (promyelocytes, myelocytes and metamyelocytes) > 1% indicates that a LEFT SHIFT is Present. MCH (RBC) [Entitic mass] 26.9 pg 27.0-32.0 [facility] Work Phone: Nucleated RBC/100 WBC (Bld) [Ratio] 0 % 0-5 [facility] Work Phone: MCHC Auto (RBC) [Mass/Vol]on 12-28-2021 MCHC (RBC) [Mass/Vol] 29.8 g/dL 32-36 [facility] Work Phone: No Panel Informationon 12-28 Estimated GFR (MDRD) Amer 129 mL/min >60 [facility] Work Phone: Comment on above: GFR Calc Estimated GFR (MDRD) Non-Af Amer 107 mL/min >60 [facility] Work Phone: Comment on above: Non- GFR Calc Platelets bldon 12-28-2021 Platelets (Bld) [#/Vol] 574 10*3/uL 150-450 [facility] Work Phone: Serum or plasma calcium jj urement (mass/volume)on 12-28-2021 Calcium [Mass/Vol] 9.7 mg/dL 8.5-10.1 [facility] Work Phone: Serum or plasma creatinine m easurement (mass/volume)on 12-28-2021 Creatinine [Mass/Vol] 0.60 mg/dL 0.55-1.02 [facility] Work Phone: Comment on above: The validity of the calculated GFR & GFRAA in patients over 70 years has not been determined. Clinical correlation is essential. Serum or plasma urea nitroge n measurement (mass/volume)on 12-28-2021 Urea nitrogen [Mass/Vol] 21 mg/dL 7-18 [facility] [facility] Work [facility]: Thin prep Papanicolaou smear with manual screeningon 12-28-2021 Thin prep Papanicolaou smear with manual screening 7 5-15 [facility] Work Phone: Absolute lymphocyte counton 12-14-2021 Lymphocytes Auto (Unsp spec) [#/Vol] 1.34 10*3/uL 0.83-4.51 [facility] Work Phone: Basophil percentageon 2021 Basophils/100 WBC (Bld) 1.1 % 0-1 [facility] Work Phone: Chloride [Moles/Vol] 106 mmol/L 98-107 [facility] Work Phone: Eosinophils/100 WBC (Bld) 2.3 % 0-5 [facility] Work Phone: Glucose [Mass/Vol] 94 mg/dL 74-106 [facility] Work Phone: Neutrophils (Bld) [#/Vol] 6.7 10*3/uL 2.0-7.7 [facility] Work Phone: Neutrophils/100 WBC (Bld) 70.8 % 47-70 [facility] Work Phone: Potassium [Moles/Vol] 3.6 mmol/L 3.5-5.1 [facility] Work Phone: Sodium [Moles/Vol] 143 mmol/L 136-145 [facility] Work Phone: WBC (Bld) [#/Vol] 9.4 10*3/uL 4.4-11.0 [facility] Work Phone: Blood erythrocytes count (nu mber/volume)on 12-14-2021 RBC (Bld) [#/Vol] 4.55 10*6/uL 4.2-5.4 [facility] Work Phone: Blood hemoglobin measurement (mass/volume)on 12-14-2021 Hemoglobin (Bld) [Mass/Vol] 11.9 g/dL 12.0-15.0 [facility] Work Phone: Blood lymphocytes/100 leukoc yteson 12-14-2021 Lymphocytes/100 WBC (Bld) 14.2 % 19-41 [facility] Work Phone: Blood monocytes/100 leukocyt eson 12-14-2021 Monocytes/100 WBC (Bld) 11.0 % 0-10 [facility] Work Phone: [phone] Blood platelet mean volumeon 12-14-2021 Platelet mean volume (Bld) [Entitic vol] 9.0 fL 6.2-12.0 [facility] Work Phone: [phone] Determination of erythrocyte mean corpuscular volume (MCV)on 12-14-2021 MCV (RBC) [Entitic vol] 90.1 fL 81-99 [facility] Work Phone: [phone] Hematocrit Auto (Bld) [Volum e fraction]on 12-14-2021 Hematocrit (Bld) [Volume fraction] 41.0 % 37-47 [facility] Work Phone: [phone] Laboratory - Chemistry and C hemistry - challengeon 12-14-2021 CO2 [Moles/Vol] 30.0 mmol/L 21.0-32.0 [facility] Work Phone: [phone] Urea nitrogen/Creatinine [Mass ratio] 40.1 mg/mg 10-20 [facility] Work Phone: [phone] Laboratory - Hematology and Cell countson 12-14-2021 Erythrocyte distribution width (RBC) [Entitic vol] 53.1 fL 35.1-43.9 [facility] Work Phone: [phone] Erythrocyte distribution width (RBC) [Ratio] 15.9 % 11.6-14.6 [facility] Work Phone: [phone] Immature granulocytes/100 WBC (Bld) 0.600 % 0.0-0.9 [facility] Work Phone: [phone] Comment on above: IG% - Immature Granu locytes (promyelocytes, myelocytes and metamyelocytes) > 1% indicates that a LEFT SHIFT is Present. MCH (RBC) [Entitic mass] 26.2 pg 27.0-32.0 [facility] Work Phone: [phone] Nucleated RBC/100 WBC (Bld) [Ratio] 0 % 0-5 [facility] Work Phone: [phone] MCHC Auto (RBC) [Mass/Vol]on 12-14-2021 MCHC (RBC) [Mass/Vol] 29.0 g/dL 32-36 [facility] Work Phone: No Panel Informationon 12-14 Estimated GFR (MDRD) Amer 144 mL/min >60 [facility] Work Phone: Comment on above: GFR Calc Estimated GFR (MDRD) Non-Af Amer 119 mL/min >60 [facility] Work Phone: Comment on above: Non- GFR Calc Platelets bldon 12-14-2021 Platelets (Bld) [#/Vol] 567 10*3/uL 150-450 [facility] Work Phone: Serum or plasma calcium jj urement (mass/volume)on 12-14-2021 Calcium [Mass/Vol] 9.6 mg/dL 8.5-10.1 [facility] Work Phone: Serum or plasma creatinine m easurement (mass/volume)on 12-14-2021 Creatinine [Mass/Vol] 0.55 mg/dL 0.55-1.02 [facility] Work Phone: Comment on above: The validity of the calculated GFR & GFRAA in patients over 70 years has not been determined. Clinical correlation is essential. Serum or plasma urea nitroge n measurement (mass/volume)on 12-14-2021 Urea nitrogen [Mass/Vol] 22 mg/dL 7-18 [facility] Work Phone: [phone] Thin prep Papanicolaou smear with manual screeningon 12-14-2021 Thin prep Papanicolaou smear with manual screening 7 5-15 [facility] Work Phone: [phone] Absolute lymphocyte counton 11-16-2021 Lymphocytes Auto (Unsp spec) [#/Vol] 1.38 10*3/uL 0.83-4.51 [facility] Work Phone: Basophil percentageon 2021 Basophils/100 WBC (Bld) 1.1 % 0-1 [facility] Work Phone: [phone] Chloride [Moles/Vol] 106 mmol/L 98-107 [facility] Work Phone: Eosinophils/100 WBC (Bld) 3.7 % 0-5 [facility] Work Phone: Glucose [Mass/Vol] 100 mg/dL 74-106 [facility] Work Phone: Comment on above: Fasting Glucose resu lt from 100 to 125 mg/dL suggests IMPAIRED HOMEOSTASIS per A.D.A. criteria. Neutrophils (Bld) [#/Vol] 4.5 10*3/uL 2.0-7.7 [facility] Work Phone: Neutrophils/100 WBC (Bld) 61.9 % 47-70 [facility] Work Phone: Potassium [Moles/Vol] 3.7 mmol/L 3.5-5.1 [facility] Work Phone: Sodium [Moles/Vol] 142 mmol/L 136-145 [facility] Work Phone: WBC (Bld) [#/Vol] 7.3 10*3/uL 4.4-11.0 [facility] Work Phone: Blood erythrocytes count (nu mber/volume)on 11-16-2021 RBC (Bld) [#/Vol] 4.38 10*6/uL 4.2-5.4 [facility] Work Phone: Blood hemoglobin measurement (mass/volume)on 11-16-2021 Hemoglobin (Bld) [Mass/Vol] 11.6 g/dL 12.0-15.0 [facility] Work Phone: Blood lymphocytes/100 leukoc yteson 11-16-2021 Lymphocytes/100 WBC (Bld) 18.9 % 19-41 [facility] Work Phone: Blood monocytes/100 leukocyt eson 11-16-2021 Monocytes/100 WBC (Bld) 13.0 % 0-10 [facility] Work Phone: Blood platelet mean volumeon 11-16-2021 Platelet mean volume (Bld) [Entitic vol] 8.5 fL 6.2-12.0 [facility] Work Phone: [phone] Determination of erythrocyte mean corpuscular volume (MCV)on 11-16-2021 MCV (RBC) [Entitic vol] 90.6 fL 81-99 [facility] Work Phone: [phone] Hematocrit Auto (Bld) [Volum e fraction]on 11-16-2021 Hematocrit (Bld) [Volume fraction] 39.7 % 37-47 [facility] Work Phone: [phone] Laboratory - Chemistry and C hemistry - challengeon 11-16-2021 CO2 [Moles/Vol] 30.0 mmol/L 21.0-32.0 [facility] Work Phone: [phone] Urea nitrogen/Creatinine [Mass ratio] 23.4 mg/mg 10-20 [facility] Work Phone: [phone] Laboratory - Hematology and Cell countson 11-16-2021 Erythrocyte distribution width (RBC) [Entitic vol] 54.2 fL 35.1-43.9 [facility] Work Phone: [phone] Erythrocyte distribution width (RBC) [Ratio] 16.2 % 11.6-14.6 [facility] Work Phone: [phone] Immature granulocytes/100 WBC (Bld) 1.400 % 0.0-0.9 [facility] Work Phone: [phone] Comment on above: IG% - Immature Granu locytes (promyelocytes, myelocytes and metamyelocytes) > 1% indicates that a LEFT SHIFT is Present. MCH (RBC) [Entitic mass] 26.5 pg 27.0-32.0 [facility] Work Phone: [phone] Nucleated RBC/100 WBC (Bld) [Ratio] 0 % 0-5 [facility] Work Phone: [phone] MCHC Auto (RBC) [Mass/Vol]on 11-16-2021 MCHC (RBC) [Mass/Vol] 29.2 g/dL 32-36 [facility] Work Phone: [phone] No Panel Informationon 11-16 Estimated GFR (MDRD) Amer 142 mL/min >60 [facility] Work Phone: Comment on above: GFR Calc Estimated GFR (MDRD) Non-Af Amer 117 mL/min >60 [facility] Work Phone: Comment on above: Non- GFR Calc Platelets bldon 11-16-2021 Platelets (Bld) [#/Vol] 584 10*3/uL 150-450 [facility] Work Phone: Serum or plasma calcium jj urement (mass/volume)on 11-16-2021 Calcium [Mass/Vol] 9.4 mg/dL 8.5-10.1 [facility] Work Phone: Serum or plasma creatinine m easurement (mass/volume)on 11-16-2021 Creatinine [Mass/Vol] 0.56 mg/dL 0.55-1.02 [facility] Work Phone: Comment on above: The validity of the calculated GFR & GFRAA in patients over 70 years has not been determined. Clinical correlation is essential. Serum or plasma urea nitroge n measurement (mass/volume)on 11-16-2021 Urea nitrogen [Mass/Vol] 13 mg/dL 7-18 [facility] Work Phone: Thin prep Papanicolaou smear with manual screeningon 11-16-2021 Thin prep Papanicolaou smear with manual screening 6 5-15 [facility] Work Phone: Absolute lymphocyte counton 11-02-2021 Lymphocytes Auto (Unsp spec) [#/Vol] 1.38 10*3/uL 0.83-4.51 [facility] Work Phone: Basophil percentageon 2021 Basophils/100 WBC (Bld) 1.1 % 0-1 [facility] Work Phone: Chloride [Moles/Vol] 100 mmol/L 98-107 [facility] Work Phone: Eosinophils/100 WBC (Bld) 4.3 % 0-5 [facility] Work Phone: Glucose [Mass/Vol] 78 mg/dL 74-106 [facility] Work Phone: Neutrophils (Bld) [#/Vol] 6.8 10*3/uL 2.0-7.7 [facility] Work Phone: Neutrophils/100 WBC (Bld) 69.5 % 47-70 [facility] Work Phone: Potassium [Moles/Vol] 3.5 mmol/L 3.5-5.1 [facility] Work Phone: Sodium [Moles/Vol] 138 mmol/L 136-145 [facility] Work Phone: WBC (Bld) [#/Vol] 9.8 10*3/uL 4.4-11.0 [facility] Work Phone: Blood erythrocytes count (nu mber/volume)on 11-02-2021 RBC (Bld) [#/Vol] 4.58 10*6/uL 4.2-5.4 [facility] Work Phone: Blood hemoglobin measurement (mass/volume)on 11-02-2021 Hemoglobin (Bld) [Mass/Vol] 12.2 g/dL 12.0-15.0 [facility] Work Phone: Blood lymphocytes/100 leukoc yteson 11-02-2021 Lymphocytes/100 WBC (Bld) 14.1 % 19-41 [facility] Work Phone: Blood monocytes/100 leukocyt eson 11-02-2021 Monocytes/100 WBC (Bld) 9.1 % 0-10 [facility] Work Phone: Blood platelet mean volumeon 11-02-2021 Platelet mean volume (Bld) [Entitic vol] 8.2 fL 6.2-12.0 [facility] Work Phone: Determination of erythrocyte mean corpuscular volume (MCV)on 11-02-2021 MCV (RBC) [Entitic vol] 90.2 fL 81-99 [facility] Work Phone: [phone] Hematocrit Auto (Bld) [Volum e fraction]on 11-02-2021 Hematocrit (Bld) [Volume fraction] 41.3 % 37-47 [facility] Work Phone: [phone] Laboratory - Chemistry and C hemistry - challengeon 11-02-2021 CO2 [Moles/Vol] 31.0 mmol/L 21.0-32.0 [facility] Work Phone: [phone] Urea nitrogen/Creatinine [Mass ratio] 35.8 mg/mg 10-20 [facility] Work Phone: [phone] Laboratory - Hematology and Cell countson 11-02-2021 Erythrocyte distribution width (RBC) [Entitic vol] 51.6 fL 35.1-43.9 [facility] Work Phone: [phone] Erythrocyte distribution width (RBC) [Ratio] 15.7 % 11.6-14.6 [facility] Work Phone: [phone] Immature granulocytes/100 WBC (Bld) 1.900 % 0.0-0.9 [facility] Work Phone: [phone] Comment on above: IG% - Immature Granu locytes (promyelocytes, myelocytes and metamyelocytes) > 1% indicates that a LEFT SHIFT is Present. MCH (RBC) [Entitic mass] 26.6 pg 27.0-32.0 [facility] Work Phone: [phone] Nucleated RBC/100 WBC (Bld) [Ratio] 0 % 0-5 [facility] Work Phone: [phone] MCHC Auto (RBC) [Mass/Vol]on 11-02-2021 MCHC (RBC) [Mass/Vol] 29.5 g/dL 32-36 [facility] Work Phone: [phone] Panel Informationon 11-02 Estimated GFR (MDRD) Amer 133 mL/min >60 [facility] Work Phone: [phone] Comment on above: GFR Calc Estimated GFR (MDRD) Non-Af Amer 110 mL/min >60 [facility] Work Phone: Comment on above: Non- GFR Calc Platelets bldon 11-02-2021 Platelets (Bld) [#/Vol] 545 10*3/uL 150-450 [facility] Work Phone: Serum or plasma calcium jj urement (mass/volume)on 11-02-2021 Calcium [Mass/Vol] 9.6 mg/dL 8.5-10.1 [facility] Work Phone: Serum or plasma creatinine m easurement (mass/volume)on 11-02-2021 Creatinine [Mass/Vol] 0.59 mg/dL 0.55-1.02 [facility] Work Phone: Comment on above: The validity of the calculated GFR & GFRAA in patients over 70 years has not been determined. Clinical correlation is essential. Serum or plasma urea nitroge n measurement (mass/volume)on 11-02-2021 Urea nitrogen [Mass/Vol] 21 mg/dL 7-18 [facility] Work Phone: Thin prep Papanicolaou smear with manual screeningon 11-02-2021 Thin prep Papanicolaou smear with manual screening 7 5-15 [facility] Work Phone: Absolute lymphocyte counton 10-25-2021 Lymphocytes Auto (Unsp spec) [#/Vol] 1.29 10*3/uL 0.83-4.51 [facility] Work Phone: Basophil percentageon 2021 Basophils/100 WBC (Bld) 0.8 % 0-1 [facility] Work Phone: Chloride [Moles/Vol] 106 mmol/L 98-107 [facility] Work Phone: Eosinophils/100 WBC (Bld) 2.0 % 0-5 [facility] Work Phone: Glucose [Mass/Vol] 106 mg/dL 74-106 [facility] Work Phone: Comment on above: Fasting Glucose resu lt from 100 to 125 mg/dL suggests IMPAIRED HOMEOSTASIS per A.D.A. criteria. Neutrophils (Bld) [#/Vol] 13.8 10*3/uL 2.0-7.7 [facility] Work Phone: [phone] Neutrophils/100 WBC (Bld) 79.4 % 47-70 [facility] Work Phone: [phone] Potassium [Moles/Vol] 4.3 mmol/L 3.5-5.1 [facility] Work Phone: [phone] Comment on above: Slight Hemolysis, Re sult may be falsely increased. Sodium [Moles/Vol] 137 mmol/L 136-145 [facility] Work [facility]: [phone] WBC (Bld) [#/Vol] 17.3 10*3/uL 4.4-11.0 [facility] Work Phone: [phone] Blood erythrocytes count (nu mber/volume)on 10-25-2021 RBC (Bld) [#/Vol] 4.91 10*6/uL 4.2-5.4 [facility] Work Phone: [phone] Blood hemoglobin measurement (mass/volume)on 10-25-2021 Hemoglobin (Bld) [Mass/Vol] 13.4 g/dL 12.0-15.0 [facility] Work Phone: [phone] Blood lymphocytes/100 leukoc yteson 10-25-2021 Lymphocytes/100 WBC (Bld) 7.5 % 19-41 [facility] Work Phone: [phone] Blood monocytes/100 leukocyt eson 10-25-2021 Monocytes/100 WBC (Bld) 7.9 % 0-10 [facility] Work Phone: [phone] Blood platelet mean volumeon 10-25-2021 Platelet mean volume (Bld) [Entitic vol] 8.6 fL 6.2-12.0 [facility] Work Phone: [phone] Determination of erythrocyte mean corpuscular volume (MCV)on 10-25-2021 MCV (RBC) [Entitic vol] 87.8 fL 81-99 [facility] Work Phone: [phone] Hematocrit Auto (Bld) [Volum e fraction]on 10-25-2021 Hematocrit (Bld) [Volume fraction] 43.1 % 37-47 [facility] Work Phone: Laboratory - Chemistry and C hemistry - challengeon 10-25-2021 CO2 [Moles/Vol] 24.0 mmol/L 21.0-32.0 [facility] Work Phone: [phone] Urea nitrogen/Creatinine [Mass ratio] 18.2 mg/mg 10-20 [facility] Work Phone: [phone] Laboratory - Hematology and Cell countson 10-25-2021 Erythrocyte distribution width (RBC) [Entitic vol] 49.2 fL 35.1-43.9 [facility] Work Phone: [phone] Erythrocyte distribution width (RBC) [Ratio] 15.5 % 11.6-14.6 [facility] Work Phone: [phone] Immature granulocytes/100 WBC (Bld) 2.400 % 0.0-0.9 [facility] Work Phone: [phone] Comment on above: IG% - Immature Granu locytes (promyelocytes, myelocytes and metamyelocytes) > 1% indicates that a LEFT SHIFT is Present. MCH (RBC) [Entitic mass] 27.3 pg 27.0-32.0 [facility] Work Phone: Nucleated RBC/100 WBC (Bld) [Ratio] 0 % 0-5 [facility] Work Phone: [phone] MCHC Auto (RBC) [Mass/Vol]on 10-25-2021 MCHC (RBC) [Mass/Vol] 31.1 g/dL 32-36 [facility] Work Phone: [phone] No Panel Informationon 10-25 Estimated GFR (MDRD) Amer 84 mL/min >60 [facility] Work Phone: [phone] Comment on above: GFR Calc Estimated GFR (MDRD) Non-Af Amer 69 mL/min >60 [facility] Work Phone: [phone] Comment on above: Non- GFR Calc Platelets bldon 10-25-2021 Platelets (Bld) [#/Vol] 614 10*3/uL 150-450 [facility] Work Phone: Serum or plasma calcium jj urement (mass/volume)on 10-25-2021 Calcium [Mass/Vol] 8.9 mg/dL 8.5-10.1 [facility] Work Phone: Serum or plasma creatinine m easurement (mass/volume)on 10-25-2021 Creatinine [Mass/Vol] 0.88 mg/dL 0.55-1.02 [facility] Work Phone: Comment on above: The validity of the calculated GFR & GFRAA in patients over 70 years has not been determined. Clinical correlation is essential. Serum or plasma urea nitroge n measurement (mass/volume)on 10-25-2021 Urea nitrogen [Mass/Vol] 16 mg/dL 7-18 [facility] Work Phone: Thin prep Papanicolaou smear with manual screeningon 10-25-2021 Thin prep Papanicolaou smear with manual screening 7 5-15 [facility] Work Phone: Absolute lymphocyte counton 10-18-2021 Lymphocytes Auto (Unsp spec) [#/Vol] 2.05 10*3/uL 0.83-4.51 [facility] Work Phone: Basophil percentageon 2021 Basophil percentage Not Reportable [facility] Work Phone: Chloride [Moles/Vol] 97 mmol/L 98-107 [facility] Work Phone: Glucose [Mass/Vol] 120 mg/dL 74-106 [facility] Work Phone: Comment on above: Fasting Glucose resu lt from 100 to 125 mg/dL suggests IMPAIRED HOMEOSTASIS per A.D.A. criteria. Neutrophils (Bld) [#/Vol] 12.6 10*3/uL 2.0-7.7 [facility] Work Phone: Potassium [Moles/Vol] 4.7 mmol/L 3.5-5.1 [facility] Work Phone: Sodium [Moles/Vol] 131 mmol/L 136-145 [facility] Work Phone: WBC (Bld) [#/Vol] 18.6 10*3/uL 4.4-11.0 [facility] Work Phone: Bilirubin Test strip Ql (U)o n 10-18-2021 Bilirubin Ql (U) Negative Negative [facility] Work Phone: Blood eosinophils/100 leukoc yteson 10-18-2021 Eosinophils/100 WBC (Bld) 2 % 0-5 [facility] Work Phone: Blood erythrocytes count (nu mber/volume)on 10-18-2021 RBC (Bld) [#/Vol] 4.24 10*6/uL 4.2-5.4 [facility] Work Phone: Blood hemoglobin measurement (mass/volume)on 10-18-2021 Hemoglobin (Bld) [Mass/Vol] 11.6 g/dL 12.0-15.0 [facility] Work Phone: Blood lymphocytes/100 leukoc yteson 10-18-2021 Lymphocytes/100 WBC (Bld) 11 % 19-41 [facility] Work Phone: Blood metamyelocytes/100 papa kocyteson 10-18-2021 Metamyelocytes/100 WBC (Bld) 6 % 0-1 [facility] Work Phone: Blood monocytes/100 leukocyt eson 10-18-2021 Monocytes/100 WBC (Bld) 8 % 0-10 [facility] Work Phone: Blood platelet adequacy dete ction by light microscopyon 10-18-2021 Platelets LM Ql (Bld) MOD INC ADEQ [facility] Work Phone: Blood platelet mean volumeon 10-18-2021 Platelet mean volume (Bld) [Entitic vol] 8.6 fL 6.2-12.0 [facility] Work Phone: Blood promyelocytes/100 leuk ocyteson 10-18-2021 Promyelocytes/100 WBC (Bld) 1 % 0-0 [facility] Work Phone: [phone] Blood segmented neutrophils/ 100 leukocyteson 10-18-2021 Segmented neutrophils/100 WBC (Bld) 68 % 47-70 [facility] Work Phone: Culture, urineon 10-18-2021 Bacteria identified Cx Nom (U) Mixed Gram Pos & Gram Neg Org [facility] Work Phone: [phone] Bacteria identified Cx Nom (U) Yeast [facility] Work Phone: [phone] Determination of erythrocyte mean corpuscular volume (MCV)on 10-18-2021 MCV (RBC) [Entitic vol] 89.6 fL 81-99 [facility] Work Phone: [phone] Hematocrit Auto (Bld) [Volum e fraction]on 10-18-2021 Hematocrit (Bld) [Volume fraction] 38.0 % 37-47 [facility] Work Phone: [phone] Ketones Test strip Ql (U)on 10-18-2021 Ketones Ql (U) Negative Negative [facility] Work Phone: Laboratory - Chemistry and C hemistry - challengeon 10-18-2021 CO2 [Moles/Vol] 24.0 mmol/L 21.0-32.0 [facility] Work Phone: [phone] Urea nitrogen/Creatinine [Mass ratio] 49.9 mg/mg 10-20 [facility] Work Phone: [phone] Laboratory - Hematology and Cell countson 10-18-2021 Erythrocyte distribution width (RBC) [Entitic vol] 48.5 fL 35.1-43.9 [facility] Work Phone: [phone] Erythrocyte distribution width (RBC) [Ratio] 14.9 % 11.6-14.6 [facility] Work Phone: [phone] MCH (RBC) [Entitic mass] 27.4 pg 27.0-32.0 [facility] Work Phone: Myelocytes/100 WBC (Bld) 4 % 0-0 [facility] Work Phone: MCHC Auto (RBC) [Mass/Vol]on 10-18-2021 MCHC (RBC) [Mass/Vol] 30.5 g/dL 32-36 [facility] Work Phone: Nitrite Test strip Ql (U)on 10-18-2021 Nitrite Ql (U) Negative Negative [facility] Work Phone: No Panel Informationon 10-18 Estimated GFR (MDRD) Amer 129 mL/min >60 [facility] Work Phone: Comment on above: GFR Calc Estimated GFR (MDRD) Non-Af Amer 107 mL/min >60 [facility] Work Phone: Comment on above: Non- GFR Calc Platelets bldon 10-18-2021 Platelets (Bld) [#/Vol] 561 10*3/uL 150-450 [facility] Work Phone: Protein Test strip Ql (U)on 10-18-2021 Protein Ql (U) 15 mg/dl Negative [facility] [facility] Work Phone: RBC morphologyon 10-18-2021 RBC morphology finding Nom (Bld) NORM C+C NORMAL NORM C&C [facility] Work Phone: Review by pathologiston 10-03 Pathologist review Shaan (Unsp spec) [Interp] Reviewed [facility] Work Phone: Comment on above: Previous reported re sult: Kori isaacs Edited by: RGOOD on 10/19/21:1241Leukocytosis with Neutrophilic left shift. Thrombocytosis.Clinical correlation necessary.Je Browne M.D. 10/19/21 AMENDED REPORT 10/19/21 1241 PATH REV previously reported as: Kori isaacs Serum or plasma calcium jj urement (mass/volume)on 10-18-2021 Calcium [Mass/Vol] 9.6 mg/dL 8.5-10.1 [facility] Work Phone: Serum or plasma creatinine m easurement (mass/volume)on 10-18-2021 Creatinine [Mass/Vol] 0.60 mg/dL 0.55-1.02 [facility] Work Phone: Comment on above: The validity of the calculated GFR & GFRAA in patients over 70 years has not been determined. Clinical correlation is essential. Serum or plasma urea nitroge n measurement (mass/volume)on 10-18-2021 Urea nitrogen [Mass/Vol] 30 mg/dL 7-18 [facility] Work Phone: Thin prep Papanicolaou smear with manual screeningon 10-18-2021 Thin prep Papanicolaou smear with manual screening 10 5-15 [facility] Work Phone: [phone] Total cell counton 2 Cells counted Molgen (Bld/Tiss) [#] 100 MANUAL DIFF [facility] Work Phone: Urine blood detectionon 10-03 RBC Ql (U) Negative Negative [facility] Work Phone: Urine clarityon 10-18-2021 Clarity (U) Clear Clear [facility] Work Phone: Urine color determinationon 10-18-2021 Color (U) Yellow Yellow [facility] Work Phone: Urine glucose detectionon Glucose Ql (U) Normal mg/dl Normal [facility] Work Phone: Urine leukocyte esterase det ection by dipstickon 10-18-2021 Leukocyte esterase Test strip Ql (U) Negative Negative [facility] Work Phone: Urine pHon 10-18-2021 pH (U) 6.0 [pH] 5.0 - 8.0 [facility] Work Phone: Urine specific gravity measu rementon 10-18-2021 Specific gravity (U) [Rel density] 1.015 1.002-1.030 [facility] Work Phone: Urobilinogen Auto test strip Ql (U)on 10-18-2021 Urobilinogen Ql (U) Normal mg/dl Normal [facility] Work Phone: Absolute lymphocyte counton 10-11-2021 Lymphocytes Auto (Unsp spec) [#/Vol] 1.28 10*3/uL 0.83-4.51 [facility] Work Phone: Basophil percentageon 2021 Basophils/100 WBC (Bld) 0.5 % 0-1 [facility] Work Phone: Bilirubin [Mass/Vol] 0.40 mg/dL 0.20-1.00 [facility] Work Phone: [phone] Comment on above: For patients on eltr ombopag therapy, use of Dimension [place] TBIL is not recommended. Chloride [Moles/Vol] 102 mmol/L 98-107 [facility] Work Phone: Eosinophils/100 WBC (Bld) 3.5 % 0-5 [facility] Work Phone: Glucose [Mass/Vol] 130 mg/dL 74-106 [facility] Work Phone: Comment on above: Fasting Glucose resu lt greater than or equal to 126 mg/dL suggests DIABETES MELLITUS per A.D.A. criteria. Neutrophils (Bld) [#/Vol] 10.0 10*3/uL 2.0-7.7 [facility] Work Phone: Neutrophils/100 WBC (Bld) 74.6 % 47-70 [facility] Work Phone: Potassium [Moles/Vol] 4.0 mmol/L 3.5-5.1 [facility] Work Phone: Protein [Mass/Vol] 6.3 g/dL 6.4-8.2 [facility] Work Phone: Sodium [Moles/Vol] 137 mmol/L 136-145 [facility] Work Phone: WBC (Bld) [#/Vol] 13.4 10*3/uL 4.4-11.0 [facility] Work Phone: Blood erythrocytes count (nu mber/volume)on 10-11-2021 RBC (Bld) [#/Vol] 4.57 10*6/uL 4.2-5.4 [facility] Work Phone: [phone] Blood hemoglobin measurement (mass/volume)on 10-11-2021 Hemoglobin (Bld) [Mass/Vol] 12.4 g/dL 12.0-15.0 [facility] Work Phone: [phone] Blood lymphocytes/100 leukoc yteson 10-11-2021 Lymphocytes/100 WBC (Bld) 9.6 % 19-41 [facility] Work Phone: [phone] Blood monocytes/100 leukocyt eson 10-11-2021 Monocytes/100 WBC (Bld) 9.0 % 0-10 [facility] Work Phone: [phone] Blood platelet mean volumeon 10-11-2021 Platelet mean volume (Bld) [Entitic vol] 9.2 fL 6.2-12.0 [facility] Work Phone: [phone] Determination of erythrocyte mean corpuscular volume (MCV)on 10-11-2021 MCV (RBC) [Entitic vol] 90.2 fL 81-99 [facility] Work Phone: [phone] Hematocrit Auto (Bld) [Volum e fraction]on 10-11-2021 Hematocrit (Bld) [Volume fraction] 41.2 % 37-47 [facility] Work Phone: [phone] Laboratory - Chemistry and C hemistry - challengeon 10-11-2021 ALP [Catalytic activity/Vol] 79 U/L 45-117 [facility] Work Phone: [phone] ALT [Catalytic activity/Vol] 120 U/L 13-56 [facility] Work Phone: [phone] CO2 [Moles/Vol] 27.0 mmol/L 21.0-32.0 [facility] Work Phone: [phone] Globulin (S) [Mass/Vol] 4.5 g/dL 2.2-4.2 [facility] Work Phone: Urea nitrogen/Creatinine [Mass ratio] 64.6 mg/mg 10-20 [facility] Work Phone: [phone] Laboratory - Hematology and Cell countson 10-11-2021 Erythrocyte distribution width (RBC) [Entitic vol] 47.8 fL 35.1-43.9 [facility] Work Phone: [phone] Erythrocyte distribution width (RBC) [Ratio] 14.5 % 11.6-14.6 [facility] Work Phone: [phone] Immature granulocytes/100 WBC (Bld) 2.800 % 0.0-0.9 [facility] Work Phone: [phone] Comment on above: IG% - Immature Granu locytes (promyelocytes, myelocytes and metamyelocytes) > 1% indicates that a LEFT SHIFT is Present. MCH (RBC) [Entitic mass] 27.1 pg 27.0-32.0 [facility] Work Phone: [phone] Nucleated RBC/100 WBC (Bld) [Ratio] 0 % 0-5 [facility] Work Phone: [phone] MCHC Auto (RBC) [Mass/Vol]on 10-11-2021 MCHC (RBC) [Mass/Vol] 30.1 g/dL 32-36 [facility] Work Phone: [phone] Panel Informationon 10-11 Estimated GFR (MDRD) Amer 168 mL/min >60 [facility] Work Phone: [phone] Comment on above: GFR Calc Estimated GFR (MDRD) Non-Af Amer 139 mL/min >60 [facility] Work Phone: [phone] Comment on above: Non- GFR Calc Platelets bldon 10-11-2021 Platelets (Bld) [#/Vol] 369 10*3/uL 150-450 [facility] Work Phone: [phone] Serum or plasma albumin jj urement (mass/volume)on 10-11-2021 Albumin [Mass/Vol] 1.8 g/dL 3.2-5.0 [facility] Work Phone: Serum or plasma albumin/glob ulin mass ratioon 10-11-2021 Albumin/Globulin [Mass ratio] 0.4 {ratio} 0.9-2.4 [facility] Work Phone: [phone] Serum or plasma calcium jj urement (mass/volume)on 10-11-2021 Calcium [Mass/Vol] 8.9 mg/dL 8.5-10.1 [facility] Work Phone: [phone] Serum or plasma creatinine m easurement (mass/volume)on 10-11-2021 Creatinine [Mass/Vol] 0.48 mg/dL 0.55-1.02 [facility] Work Phone: Comment on above: The validity of the calculated GFR & GFRAA in patients over 70 years has not been determined. Clinical correlation is essential. Serum or plasma urea nitroge n measurement (mass/volume)on 10-11-2021 Urea nitrogen [Mass/Vol] 31 mg/dL 7-18 [facility] Work Phone: Thin prep Papanicolaou smear with manual screeningon 10-11-2021 Thin prep Papanicolaou smear with manual screening 55 U/L 15-37 [facility] Work Phone: Thin prep Papanicolaou smear with manual screening 8 5-15 [facility] Work Phone: [phone] Absolute lymphocyte counton 09-28-2021 Lymphocytes Auto (Unsp spec) [#/Vol] 1.32 10*3/uL 0.83-4.51 [facility] Work Phone: [phone] Basophil percentageon 2021 Basophils/100 WBC (Bld) 0.5 % 0-1 [facility] Work Phone: Chloride [Moles/Vol] 106 mmol/L 98-107 [facility] Work Phone: [phone] Eosinophils/100 WBC (Bld) 0.1 % 0-5 [facility] Work Phone: [phone] Glucose [Mass/Vol] 115 mg/dL 74-106 [facility] Work Phone: [phone] Comment on above: Fasting Glucose resu lt from 100 to 125 mg/dL suggests IMPAIRED HOMEOSTASIS per A.D.A. criteria. Neutrophils (Bld) [#/Vol] 11.5 10*3/uL 2.0-7.7 [facility] Work Phone: [phone] Neutrophils/100 WBC (Bld) 77.5 % 47-70 [facility] Work Phone: [phone] Potassium [Moles/Vol] 4.0 mmol/L 3.5-5.1 [facility] Work Phone: [phone] Sodium [Moles/Vol] 138 mmol/L 136-145 [facility] Work Phone: [phone] WBC (Bld) [#/Vol] 14.8 10*3/uL 4.4-11.0 [facility] Work Phone: [phone] Blood erythrocytes count (nu mber/volume)on 09-28-2021 RBC (Bld) [#/Vol] 5.25 10*6/uL 4.2-5.4 [facility] Work Phone: [phone] Blood hemoglobin measurement (mass/volume)on 09-28-2021 Hemoglobin (Bld) [Mass/Vol] 14.7 g/dL 12.0-15.0 [facility] Work Phone: [phone] Blood lymphocytes/100 leukoc yteson 09-28-2021 Lymphocytes/100 WBC (Bld) 8.9 % 19-41 [facility] Work Phone: [phone] Blood monocytes/100 leukocyt eson 09-28-2021 Monocytes/100 WBC (Bld) 8.6 % 0-10 [facility] Work Phone: [phone] Blood platelet mean volumeon 09-28-2021 Platelet mean volume (Bld) [Entitic vol] 9.1 fL 6.2-12.0 [facility] Work Phone: [phone] Determination of erythrocyte mean corpuscular volume (MCV)on 09-28-2021 MCV (RBC) [Entitic vol] 88.8 fL 81-99 [facility] Work Phone: [phone] Glucose Glucometer (BldC) [M ass/Vol]on 09-28-2021 Glucose [Mass/Vol] 188 mg/dL 74-106 [facility] Work Phone: [phone] Comment on above: MANAGEMENT OF PATIEN T CARE PER NURSING PROTOCOL Hematocrit Auto (Bld) [Volum e fraction]on 09-28-2021 Hematocrit (Bld) [Volume fraction] 46.6 % 37-47 [facility] Work Phone: [phone] Laboratory - Chemistry and C hemistry - challengeon 09-28-2021 CO2 [Moles/Vol] 24.0 mmol/L 21.0-32.0 [facility] Work Phone: [phone] Urea nitrogen/Creatinine [Mass ratio] 41.0 mg/mg 10-20 [facility] Work Phone: [phone] Laboratory - Hematology and Cell countson 09-28-2021 Erythrocyte distribution width (RBC) [Entitic vol] 43.8 fL 35.1-43.9 [facility] Work Phone: [phone] Erythrocyte distribution width (RBC) [Ratio] 13.5 % 11.6-14.6 [facility] Work Phone: [phone] Immature granulocytes/100 WBC (Bld) 4.400 % 0.0-0.9 [facility] Work Phone: [phone] Comment on above: IG% - Immature Granu locytes (promyelocytes, myelocytes and metamyelocytes) > 1% indicates that a LEFT SHIFT is Present. MCH (RBC) [Entitic mass] 28.0 pg 27.0-32.0 [facility] Work Phone: [phone] Nucleated RBC/100 WBC (Bld) [Ratio] 0 % 0-5 [facility] Work Phone: [phone] MCHC Auto (RBC) [Mass/Vol]on 09-28-2021 MCHC (RBC) [Mass/Vol] 31.5 g/dL 32-36 [facility] Work Phone: [phone] Panel Informationon 09-28 Estimated Creatinine Clearance Calc 92.08 ml/min [facility] Work Phone: Estimated GFR (MDRD) Amer 147 mL/min >60 [facility] Work Phone: Comment on above: GFR Calc Estimated GFR (MDRD) Non-Af Amer 122 mL/min >60 [facility] Work Phone: Comment on above: Non- GFR Calc Platelets bldon 09-28-2021 Platelets (Bld) [#/Vol] 490 10*3/uL 150-450 [facility] Work Phone: Serum or plasma calcium jj urement (mass/volume)on 09-28-2021 Calcium [Mass/Vol] 9.2 mg/dL 8.5-10.1 [facility] Work Phone: Serum or plasma creatinine m easurement (mass/volume)on 09-28-2021 Creatinine [Mass/Vol] 0.54 mg/dL 0.55-1.02 [facility] Work Phone: Comment on above: The validity of the calculated GFR & GFRAA in patients over 70 years has not been determined. Clinical correlation is essential. Serum or plasma urea nitroge n measurement (mass/volume)on 09-28-2021 Urea nitrogen [Mass/Vol] 22 mg/dL 7-18 [facility] Work Phone: Thin prep Papanicolaou smear with manual screeningon 09-28-2021 Thin prep Papanicolaou smear with manual screening 8 5-15 [facility] Work Phone: Blood lymphocytes/100 leukoc yteson 09-26-2021 Lymphocytes/100 WBC (Bld) 7 % 19-41 [facility] Work Phone: [phone] Blood monocytes/100 leukocyt eson 09-26-2021 Monocytes/100 WBC (Bld) 15 % 0-10 [facility] Work Phone: [phone] Blood platelet adequacy dete ction by light microscopyon 09-26-2021 Platelets LM Ql (Bld) [employer] ADEQ [facility] Work Phone: [phone] Blood segmented neutrophils/ 100 leukocyteson 09-26-2021 Segmented neutrophils/100 WBC (Bld) 77 % 47-70 [facility] Work Phone: Laboratory - Hematology and Cell countson 09-26-2021 Myelocytes/100 WBC (Bld) 1 % 0-0 [facility] Work Phone: RBC morphologyon 09-26-2021 RBC morphology finding Nom (Bld) NORM C+C NORMAL NORM C&C [facility] Work Phone: Review by pathologiston 09-04 Pathologist review Shaan (Unsp spec) [Interp] Reviewed [facility] Work Phone: Comment on above: Previous reported re sult: Kori isaacs Edited by: JACQUES on 09/27/21:1017Neutrophilic leukocytosis with left shift. PolycythemiaThrombocytosis.Clinical correlation necessary.Je Browne M.D. 09/27/21 AMENDED REPORT 09/27/21 1017 PATH REV previously reported as: Kori isaacs Total cell counton Cells counted Molgen (Bld/Tiss) [#] 100 MANUAL DIFF [facility] Work Phone: Blood band neutrophil count as percentage of total leukocyteson 09-25-2021 Band form neutrophils/100 WBC (Bld) 1 % 0-5 [facility] Work Phone: Blood metamyelocytes/100 papa kocyteson 09-25-2021 Metamyelocytes/100 WBC (Bld) 3 % 0-1 [facility] Work Phone: Blood promyelocytes/100 leuk ocyteson 09-25-2021 Promyelocytes/100 WBC (Bld) 1 % 0-0 [facility] Work Phone: Basophil percentageon 2021 Basophil percentage 1 % 0-5 [facility] Work Phone: No Panel Informationon 09-22 D-Dimer Quantitative (PE/DVT) 0.56 FEU/ug/m 0.27-0.49 [facility] Work Phone: Comment on above: D-Dimer ELEVATED (>0 .49): Additional studies and clinicalassessments are indicated to conclude diagnosis of:Deep Vein Thrombosis (DVT) or Pulmonary Embolism (PE)CRITICAL VALUE VERIFIED. CALLED TO YVONNE PONCE ([facility])09/22/21 1110 Aren Castaneda.RESULTS READ BACK BY SAME. Blood manual differential co mment interpretation (narrative result)on 09-21-2021 Manual differential comment Shaan (Bld) [Interp] SCANNED [facility] Work Phone: [phone] Basophil percentageon 2021 Bilirubin [Mass/Vol] 0.30 mg/dL 0.20-1.00 [facility] Work Phone: [phone] Comment on above: For patients on eltr ombopag therapy, use of Dimension [place] TBIL is not recommended. Protein [Mass/Vol] 5.7 g/dL 6.4-8.2 [facility] Work Phone: [phone] Laboratory - Chemistry and C hemistry - challengeon 09-20-2021 ALP [Catalytic activity/Vol] 52 U/L 45-117 [facility] Work Phone: [phone] ALT [Catalytic activity/Vol] 28 U/L 13-56 [facility] Work Phone: [phone] Globulin (S) [Mass/Vol] 3.2 g/dL 2.2-4.2 [facility] Work Phone: [phone] Serum or plasma albumin jj urement (mass/volume)on 09-20-2021 Albumin [Mass/Vol] 2.5 g/dL 3.2-5.0 [facility] Work Phone: [phone] Serum or plasma albumin/glob ulin mass ratioon 09-20-2021 Albumin/Globulin [Mass ratio] 0.8 {ratio} 0.9-2.4 [facility] Work Phone: [phone] Thin prep Papanicolaou smear with manual screeningon 09-20-2021 Thin prep Papanicolaou smear with manual screening 24 U/L 15-37 [facility] Work Phone: [phone] Basophil percentageon 2021 Basophil percentage 2.5 mg/dL 2.5-4.9 [facility] Work Phone: Laboratory - Chemistry and C hemistry - challengeon 09-19-2021 Magnesium [Mass/Vol] 2.1 mg/dL 1.6-2.6 [facility] Work Phone: No Panel Informationon 09-19 Thyroid Stimulating Hormone (TSH) 0.74 uIU/mL 0.358-3.74 [facility] Work Phone: Bronchoalveolar lavage cultu re with Gram stainon 09-18-2021 Respiratory Culture Negative [facility] Work Phone: Gram stain for investigation of transfusion reactionon 09-18-2021 Microscopic observation Gram stain Nom (Unsp spec) [facility] Work Phone: No Panel Informationon 09-18 Streptococcus pneumoniae Antigen (M [facility] Work Phone: Serum or plasma C reactive p rotein measurement (mass/volume)on 09-18-2021 CRP [Mass/Vol] 172.00 mg/L 0.0-3.0 [facility] Work Phone: Comment on above: C-Reactive Protein ( CRP) provides useful information for thediagnosis, therapy and monitoring of inflammatory processesand associated diseases. For the evaluation of Relative Riskfor Cardiovascular Disease, a High Sensitivity CRP (HSCRP)should be ordered. Vancomycin troughon 09-19-19 Vancomycin trough [Mass/Vol] 14.1 ug/mL 5.0-15.0 [facility] Work Phone: Comment on above: VANCOMYCIN STANDARED DRUG THERAPY TROUGH LEVEL: 5.0 - 15.0 mg/L VANCOMYCIN HIGH INTENSITY THERAPY TROUGH LEVEL: 15.0 - 20.0 mg/L High Intensity therapy recommended for serious lifethreatening infections include:- Zsuivoyrvd-Tiuchlnfocll-Yokrxvfel (Ventilator/Healtcare Associated)-Sepsis PLEASE CONTACT PHARMACY SERVICES (#[id number]) FOR INTERPRETATIONOF RESULTS. Assessment of wrist artery p atency prior to arterial punctureon 09-17-2021 Arterial patency Wrist artery --pre arterial puncture Positive [facility] Work Phone: Base excesson 09-17-2021 Base excess Calc (BldV) [Moles/Vol] -2 mmol/L -2-2 [facility] Work Phone: Basophil percentageon 2021 Basophil percentage 21.8 mmol/L 22-26 [facility] Work Phone: Basophils/100 WBC (Bld) 88 % 95-99 [facility] Work Phone: CO2 (BldA) [Partial pressure ]on 09-17-2021 CO2 (Bld) [Partial pressure] 31.7 mm[Hg] 35-45 [facility] Work Phone: No Panel Informationon 09-17 Bedside Blood Gas PEEP 8 [facility] Work Phone: Blood Gas Oxygen Percent 100 [facility] Work Phone: Blood Gas Sample Site L Radial [facility] Work Phone: Blood Gas Specimen Type ART [facility] Work Phone: Blood Gas Total CO2 23 mmol/L [facility] Work Phone: Oxygen Delivery Device BiPAP [facility] Work Phone: Oxygen (BldA) [Partial press ure]on 09-17-2021 Oxygen (Bld) [Partial pressure] 51 mmHG 75-100 [facility] Work Phone: pH measurementon 09-17-2021 pH (Unsp spec) 7.45 [pH] 7.35-7.45 [facility] Work Phone: Absolute lymphocyte counton 09-16-2021 Lymphocytes Auto (Unsp spec) [#/Vol] 0.70 10*3/uL 0.83-4.51 [facility] Work Phone: [phone] Basophil percentageon 2021 Lactate [Moles/Vol] 1.8 mmol/L 0.4-2.0 [facility] Work Phone: Basophil percentage 0 SEEN /hpf 0-5 [facility] Work Phone: Lactate [Moles/Vol] 2.2 mmol/L 0.4-2.0 [facility] Work Phone: Comment on above: Critical Result(s) C alled at: 14:10:01 09/16/2021 by: Miriam Marks to Rudi. Results read back by same. Bilirubin [Mass/Vol] 0.20 mg/dL 0.20-1.00 [facility] Work Phone: Comment on above: For patients on eltr ombopag therapy, use of Dimension [place] TBIL is not recommended. Chloride [Moles/Vol] 109 mmol/L 98-107 [facility] Work Phone: Glucose [Mass/Vol] 141 mg/dL 74-106 [facility] Work Phone: [phone] Comment on above: Fasting Glucose resu lt greater than or equal to 126 mg/dL suggests DIABETES MELLITUS per A.D.A. criteria. Potassium [Moles/Vol] 3.7 mmol/L 3.5-5.1 [facility] Work Phone: Protein [Mass/Vol] 6.9 g/dL 6.4-8.2 [facility] Work Phone: Sodium [Moles/Vol] 141 mmol/L 136-145 [facility] Work Phone: Basophils/100 WBC (Bld) 0.5 % 0-1 [facility] Work Phone: Eosinophils/100 WBC (Bld) 0.1 % 0-5 [facility] Work Phone: Neutrophils (Bld) [#/Vol] 6.7 10*3/uL 2.0-7.7 [facility] Work Phone: Neutrophils/100 WBC (Bld) 75.2 % 47-70 [facility] Work Phone: WBC (Bld) [#/Vol] 8.8 10*3/uL 4.4-11.0 [facility] Work Phone: Bilirubin Test strip Ql (U)o n 09-16-2021 Bilirubin Ql (U) Negative Negative [facility] Work Phone: Blood erythrocytes count (nu mber/volume)on 09-16-2021 RBC (Bld) [#/Vol] 4.98 10*6/uL 4.2-5.4 [facility] Work Phone: Blood hemoglobin measurement (mass/volume)on 09-16-2021 Hemoglobin (Bld) [Mass/Vol] 14.2 g/dL 12.0-15.0 [facility] Work Phone: Blood lymphocytes/100 leukoc yteson 09-16-2021 Lymphocytes/100 WBC (Bld) 7.9 % 19-41 [facility] Work Phone: Blood monocytes/100 leukocyt eson 09-16-2021 Monocytes/100 WBC (Bld) 15.6 % 0-10 [facility] Work Phone: Blood platelet mean volumeon 09-16-2021 Platelet mean volume (Bld) [Entitic vol] 8.9 fL 6.2-12.0 [facility] Work Phone: Determination of erythrocyte mean corpuscular volume (MCV)on 09-16-2021 MCV (RBC) [Entitic vol] 90.8 fL 81-99 [facility] Work Phone: Hematocrit Auto (Bld) [Volum e fraction]on 09-16-2021 Hematocrit (Bld) [Volume fraction] 45.2 % 37-47 [facility] Work Phone: INR in Blood by Coagulation assayon 09-16-2021 INR Coag (Bld) [Relative time] 1.0 {INR} [facility] Work Phone: Ketones Test strip Ql (U)on 09-16-2021 Ketones Ql (U) 5 mg/dl Negative [facility] Work Phone: Laboratory - Chemistry and C hemistry - challengeon 09-16-2021 ALP [Catalytic activity/Vol] 88 U/L 45-117 [facility] Work Phone: ALT [Catalytic activity/Vol] 28 U/L 13-56 [facility] Work Phone: [phone] CO2 [Moles/Vol] 27.0 mmol/L 21.0-32.0 [facility] Work Phone: [phone] Globulin (S) [Mass/Vol] 3.3 g/dL 2.2-4.2 [facility] Work Phone: [phone] Urea nitrogen/Creatinine [Mass ratio] 38.8 mg/mg 10-20 [facility] Work Phone: [phone] Laboratory - Coagulationon 0 09-16-2021 aPTT Coag (Bld) [Time] 30.0 s 24.1-36.2 [facility] Work Phone: [phone] PT Coag (PPP) [Time] 13.1 s 11.7-14.9 [facility] Work Phone: [phone] Laboratory - Hematology and Cell countson 09-16-2021 Erythrocyte distribution width (RBC) [Entitic vol] 44.8 fL 35.1-43.9 [facility] Work Phone: Erythrocyte distribution width (RBC) [Ratio] 13.4 % 11.6-14.6 [facility] Work Phone: [phone] Immature granulocytes/100 WBC (Bld) 0.700 % 0.0-0.9 [facility] Work Phone: [phone] Comment on above: IG% - Immature Granu locytes (promyelocytes, myelocytes and metamyelocytes) > 1% indicates that a LEFT SHIFT is Present. MCH (RBC) [Entitic mass] 28.5 pg 27.0-32.0 [facility] Work Phone: Nucleated RBC/100 WBC (Bld) [Ratio] 0 % 0-5 [facility] Work Phone: [phone] Laboratory - Microbiology an d Antimicrobial susceptibilityon 09-16-2021 Bacteria identified Cx Nom (Bld) No growth in 5 days. [facility] Work Phone: MCHC Auto (RBC) [Mass/Vol]on 09-16-2021 MCHC (RBC) [Mass/Vol] 31.4 g/dL 32-36 [facility] Work Phone: Mucus LM Ql (Urine sed)on Mucus Ql (Urine sed) 0 SEEN /hpf [facility] Work Phone: [phone] Nitrite Test strip Ql (U)on 09-16-2021 Nitrite Ql (U) Positive Negative [facility] Work Phone: No Panel Informationon 09-16 Estimated Creatinine Clearance Calc 66.30 ml/min [facility] Work Phone: Estimated GFR (MDRD) Amer 101 mL/min >60 [facility] Work Phone: Comment on above: GFR Calc Estimated GFR (MDRD) Non-Af Amer 83 mL/min >60 [facility] Work Phone: Comment on above: Non- GFR Calc Platelets bldon 09-16-2021 Platelets (Bld) [#/Vol] 373 10*3/uL 150-450 [facility] Work Phone: Protein Test strip Ql (U)on 09-16-2021 Protein Ql (U) 15 mg/dl Negative [facility] Work Phone: [phone] Serum or plasma albumin jj urement (mass/volume)on 09-16-2021 Albumin [Mass/Vol] 3.6 g/dL 3.2-5.0 [facility] Work Phone: [phone] Serum or plasma albumin/glob ulin mass ratioon 09-16-2021 Albumin/Globulin [Mass ratio] 1.1 {ratio} 0.9-2.4 [facility] Work Phone: [phone] Serum or plasma calcium jj urement (mass/volume)on 09-16-2021 Calcium [Mass/Vol] 8.8 mg/dL 8.5-10.1 [facility] Work Phone: Serum or plasma creatinine m easurement (mass/volume)on 09-16-2021 Creatinine [Mass/Vol] 0.75 mg/dL 0.55-1.02 [facility] Work Phone: Comment on above: The validity of the calculated GFR & GFRAA in patients over 70 years has not been determined. Clinical correlation is essential. Serum or plasma urea nitroge n measurement (mass/volume)on 09-16-2021 Urea nitrogen [Mass/Vol] 29 mg/dL 7-18 [facility] Work Phone: Squamous epithelial cells de tection in urine sediment by light microscopyon 09-16-2021 Epithelial cells.squamous LM Ql (Urine sed) 0 SEEN /hpf 5-10 [facility] Work Phone: Thin prep Papanicolaou smear with manual screeningon 09-16-2021 Thin prep Papanicolaou smear with manual screening 16 U/L 15-37 [facility] Work Phone: Thin prep Papanicolaou smear with manual screening 5 5-15 [facility] Work Phone: Urine blood detectionon 09-03 RBC Ql (U) 10 /ul Negative [facility] Work Phone: RBC Ql (U) 0 SEEN /hpf 0-5 [facility] Work Phone: Urine clarityon 09-16-2021 Clarity (U) Cloudy Clear [facility] Work Phone: Urine color determinationon 09-16-2021 Color (U) Yellow Yellow [facility] Work Phone: Urine glucose detectionon Glucose Ql (U) Normal mg/dl Normal [facility] Work Phone: [phone] Urine leukocyte esterase det ection by dipstickon 09-16-2021 Leukocyte esterase Test strip Ql (U) Negative Negative [facility] Work Phone: Urine pHon 09-16-2021 pH (U) 5.0 [pH] 5.0 - 8.0 [facility] Work Phone: Urine sediment bacteria coun t by microscopy (number/high power field)on 09-16-2021 Bacteria LM.HPF (Urine sed) [#/Area] 2 /[HPF] None Seen [facility] Work Phone: Urine specific gravity measu rementon 09-16-2021 Specific gravity (U) [Rel density] 1.025 1.002-1.030 [facility] Work Phone: Urobilinogen Auto test strip Ql (U)on 09-16-2021 Urobilinogen Ql (U) Normal mg/dl Normal [facility] Work Phone: Hepatic function 2000 panelo n 04-09-2021 Albumin [Mass/Vol] 4.4 g/dL 3.2 - 5.2 g/dL [facility] ALP [Catalytic activity/Vol] 100 U/L 40 - 150 U/L [facility] ALT [Catalytic activity/Vol] 22 U/L 0 - 40 U/L [facility] AST [Catalytic activity/Vol] 17 U/L 0 - 45 U/L [facility] Bilirubin [Mass/Vol] 0.2 mg/dL 0.0 - 1 .3 mg/dL [facility] Bilirubin.conjugated [Mass/Vol] mg/dL 0.0 - 0.4 mg/dL [facility] Interpretation and review of laboratory results Normal [facility] Protein [Mass/Vol] 6.5 g/dL 6.0 - 8.0 g/dL [facility] IGG, IGA, IGM IMMUNOGLOBULIN SOrdered By: Huong Jacobs on 04-09-2021 Interpretation and review of laboratory results Abnormal [facility] Laboratory - Chemistry and C hemistry - challengeon 04-09-2021 25-hydroxyvitamin D [Mass/Vol] 64 ng/mL 30 - 100 ng/mL [facility] Comment on above: Vitamin D status: Deficiency: <10 ng/mL Insufficiency: 10-30 ng/mL Sufficiency: 30-100 ng/mL Toxicity: >100 ng/mL Laboratory - Chemistry and C hemistry - challengeOrdered By: Huong Milan on 04-09-2021 IgA [Mass/Vol] 151 mg/dL 84 - 381 mg/dL [facility] IgG [Mass/Vol] 523 mg/dL Low 541 - 1694 mg/dL [facility] IgM [Mass/Vol] 60 mg/dL 43 - 238 mg/dL [facility] Laboratory - Hematology and Cell countson 04-09-2021 Basophils (Bld) [#/Vol] 0.07 10*3/uL [facility] Basophils/100 WBC (Bld) 0.6 % [facility] Eosinophils (Bld) [#/Vol] 0.04 10*3/uL [facility] Eosinophils/100 WBC (Bld) 0.4 % [facility] Erythrocyte distribution width (RBC) [Entitic vol] 13.8 % 11.6 - 14.8 % [facility] Hematocrit (Bld) [Volume fraction] 50.0 % High 36.0 - 46.0 % [facility] Hemoglobin (Bld) [Mass/Vol] 15.4 g/dL 12.0 - 16.0 g/dL [facility] Immature granulocytes (Bld) [#/Vol] 0.12 10*3/uL [facility] Immature granulocytes/100 WBC (Bld) 1.10 % [facility] Comment on above: The IG parameter is the percentage of metamyelocytes, myelocytes and promyelocytes. An immature granulocyte count (IG) of 1% or more suggests the possibility of infection, an IG count of 3% is very likely related to an infection. Lymphocytes (Bld) [#/Vol] 0.94 10*3/uL [facility] Lymphocytes/100 WBC (Bld) 8.4 % [facility] MCH (RBC) [Entitic mass] 28.1 pg 26. 0 - 34.0 pg [facility] MCHC (RBC) [Mass/Vol] 30.8 g/dL Low 31.0 - 37.0 g/dL [facility] MCV (RBC) [Entitic vol] 91.2 fL 80.0 - 100.0 fL [facility] Monocytes (Bld) [#/Vol] 0.93 10*3/uL High [facility] Monocytes/100 WBC (Bld) 8.3 % [facility] Neutrophils (Bld) [#/Vol] 9.12 10*3/uL High [facility] Neutrophils/100 WBC (Bld) 81.2 % [facility] Nucleated RBC (Bld) [#/Vol] 0.00 10*3/uL [facility] Nucleated RBC/100 WBC (Bld) [Ratio] 0.0 % [facility] Platelet mean volume (Bld) [Entitic vol] 9.4 fL 9.4 - 12.4 fL [facility] Platelets (Bld) [#/Vol] 417 10*3/uL High [facility] RBC (Bld) [#/Vol] 5.48 10*6/uL [facility] WBC (Bld) [#/Vol] 11.22 10*3/uL [facility] No Panel Informationon 04-09 Interpretation and review of laboratory results Abnormal [facility] VITAMIN D, TOTAL, 25-OHon Interpretation and review of laboratory results Normal [facility] Assay performed usin [employer] CLIA methodology. [facility] MR BRAIN WITHOUT CONTRASTon 10-18-2019 No acute intracrania l abnormality. Underlying atrophy and black holes. Stable burden of T2/FLAIR signal abnormalities compatible with demyelination. [employer] Workstation ID: [id number] [facility] EXAMINATION: MR BRAI N WITHOUT CONTRAST HISTORY: ORDERING SYSTEM PROVIDED HISTORY: [...] compatible with the patient's diagnosis of demyelination. [facility] Interface, Rad In Fuji Speechq - 10/18/2019 3:54 PM EDT EXAMINATION: MR BRAIN WITHOUT CONTRAST HISTORY: ORDERING [...] compatible with the patient's diagnosis of demyelination. IMPRESSION: No acute intracranial abnormality. Underlying atrophy and black holes. Stable burden of T2/FLAIR signal abnormalities compatible with demyelination. [employer] Workstation ID: [id number] [facility] POC Creatinineon 09-28-2018 Creatinine mass conc 0.6 mg/dL 0.4 - 1 .1 mg/dL [facility] Interpretation and review of laboratory results Normal [facility] Comprehensive Metabolic Pane dwight 01-19-2018 Albumin mass conc 4.7 g/dL Invalid Interpretation Code 3.2 - 5.2 g/dL [facility] ALP enzyme act/vol 76 U/L Invalid Interpretation Code 40 - 150 U/L [facility] ALT enzyme act/vol 14 U/L Invalid Interpretation Code 0 - 40 U/L [facility] Anion gap 3 molar conc 17 mmol/L Invalid Interpretation Code 10 - 20 mmol/L [facility] AST enzyme act/vol 15 U/L Invalid Interpretation Code 0 - 45 U/L [facility] Bilirubin mass conc 0.3 mg/dL Invalid Interpretation Code 0 - 1.3 mg/dL [facility] Calcium mass conc 10.2 mg/dL Invalid Interpretation Code 8.4 - 10.2 mg/dL [facility] Chloride molar conc 107 mmol/L Invalid Interpretation Code 98 - 108 mmol/L [facility] Creatinine mass conc 0.47 mg/dL Invalid Interpretation Code 0.4 - 1.1 mg/dL [facility] GFR/1.73 sq M predicted among non-blacks MDRD vol rate/area (S/P/Bld) The eGFR should be used for monitoring renal function only and not for medication dosing. Invalid Interpretation Code [facility] GFR/1.73 sq M.predicted CKD-EPI vol rate/area (S/P/Bld) 108 Invalid Interpretation Code >=60 mL/min/1.[address] [facility] Glucose mass conc 96 mg/dL Invalid Interpretation Code 65 - 99 mg/dL [facility] HCO3 molar conc 26 mmol/L Invalid Interpretation Code 21 - 32 mmol/L [facility] Interpretation and review of laboratory results Abnormal Invalid Interpretation Code [facility] Potassium molar conc 4.2 mmol/L Invalid Interpretation Code 3.5 - 5.1 mmol/L [facility] Protein mass conc 6.9 g/dL Invalid Interpretation Code 6 - 8 g/dL [facility] Sodium molar conc 146 mmol/L High 135 - 145 mmol/L [facility] Urea nitrogen mass conc 33 mg/dL High 8 - 25 mg/dL [facility] Urea nitrogen/Creatinine mass ratio 70.2 mg/mg High [facility] Vitamin D, Total, 25-OHon 25-Hydroxyvitamin D2+25-Hydroxyvitamin D3 mass conc 72 ng/mL Invalid Interpretation Code 30 - 100 ng/mL [facility] Comment on above: Vitamin D status: De ficiency: <10 ng/mL Insufficiency: 10-30 ng/mL Sufficiency: 30-100 ng/mL Toxicity: >100 ng/mL Interpretation and review of laboratory results Normal Invalid Interpretation Code [facility] Assay performed [employer] CLIA methodology. Invalid Interpretation Code [facility] CBC and Differentialon 08-25 Creatinine The following orders were created for panel order CBC and Differential. Procedure Abnormality Status --------- ------ CBC Auto Differential[[id number]] Abnormal Final result Please view results for these tests on the individual orders. Invalid Interpretation Code [facility] Comprehensive Metabolic Pane dwight 08-25-2017 Alanine aminotransferase (ALT) 18 U/L Invalid Interpretation Code 0 - 40 U/L [facility] Albumin 4.6 g/dL Invalid Interpretation Code 3.2 - 5.2 g/dL [facility] Alkaline phosphatase (ALP) 82 U/L Invalid Interpretation Code 40 - 150 U/L [facility] Anion gap 19 mmol/L Invalid Interpretation Code 10 - 20 mmol/L [facility] Aspartate aminotransferase (AST) 15 U/L Invalid Interpretation Code 0 - 45 U/L [facility] Bicarbonate (HCO3) 26 mmol/L Invalid Interpretation Code 21 - 32 mmol/L [facility] Bilirubin (total) mg/dL Invalid Interpretation Code 0 - 1.3 mg/dL [facility] BUN/Creatinine Ratio 48.1 mg/mg High 10.0 - 20.0 [facility] Calcium 10.3 mg/dL High 8.4 - 10.2 mg/dL [facility] Chloride 103 mmol/L Invalid Interpretation Code 98 - 108 mmol/L [facility] Creatinine 0.54 mg/dL Invalid Interpretation Code 0.4 - 1.1 mg/dL [facility] eGFR (non-black) The eGFR should be used for monitoring renal function only and not for medication dosing. Invalid Interpretation Code [facility] eGFR (non-black) 104 mL/min/{1.73_m2} Invalid Interpretation Code >=[address] [facility] Glucose 86 mg/dL Invalid Interpretation Code 65 - 99 mg/dL [facility] Interpretation and review of laboratory results Abnormal Invalid Interpretation Code [facility] Potassium 4.3 mmol/L Invalid Interpretation Code 3.5 - 5.1 mmol/L [facility] Protein 6.9 g/dL Invalid Interpretation Code 6 - 8 g/dL [facility] Sodium 144 mmol/L Invalid Interpretation Code 135 - 145 mmol/L [facility] Urea nitrogen 26 mg/dL High 8 - 25 mg/dL [facility] Vitamin D, Total, 25-OHon Vit D, 25-Hydroxy 109 ng/mL High 30 - 100 ng/mL [facility] Vitamin D, Total, 25-OH Assay performed using Fix[employer] CLIA methodology. Invalid Interpretation Code [facility] CBC and Differentialon 05-25 Creatinine The following orders were created for panel order CBC and Differential. Procedure Abnormality Status --------- ------ CBC Auto Differential[[id number]] Abnormal Final result Please view results for these tests on the individual orders. Invalid Interpretation Code [facility] Work Phone: Bronchoalveolar lavage cultu re with Gram stain Respiratory Culture Negative [facility] Work Phone: Culture, urine Bacteria identified Cx Nom (U) Mixed Gram Pos & Gram Neg Org [facility] Work Phone: Bacteria identified Cx Nom (U) Yeast [facility] Work Phone: [phone] Bacteria identified Cx Nom (U) Escherichia coli [facility] Work Phone: Gram stain for investigation of transfusion reaction Microscopic observation Gram stain Nom (Unsp spec) [facility] Work Phone: Laboratory - Microbiology an d Antimicrobial susceptibility Bacteria identified Cx Nom (Bld) No growth in 5 days. [facility] Work Phone: No Panel Information Streptococcus pneumoniae Antigen (M [facility] Work Phone: Vital Signs Date Time Vital Sign Value Performing Clinician Facility 07-05-2022 11:24-0500 Body height 162.[address] Joan Hughes Work Phone: [facility] 09-28-2021 12:05-0400 SaO2% (BldA) [Mass fraction] 98 % Dr. Joan Hughes Work Phone: [facility] Work Phone: 09-28-2021 09:00-0400 Body temperature 98 [degF] Dr. Joan Hughes Work Phone: [facility] Work Phone: 09-28-2021 09:00-0400 Diastolic blood pressure 79 mm[Hg] Dr. Joan Hughes Work Phone: [facility] Work Phone: 09-28-2021 09:00-0400 Heart rate 100 /min Dr. Joan Hughes Work Phone: [facility] Work Phone: 09-28-2021 09:00-0400 Respiratory rate 14 /min Dr. Joan Hughes Work Phone: [facility] Work Phone: 09-28-2021 09:00-0400 Systolic blood pressure 117 mm[Hg] Dr. Joan Hughes Work Phone: [facility] Work Phone: 09-28-2021 05:32-0400 Body weight 66.[address] Joan Hughes Work Phone: [facility] Work Phone: 09-25-2021 09:36-0400 Inhaled oxygen flow rate 2 L/min Dr. Joan Hughes Work Phone: [facility] Work Phone: 09-24-2021 11:58-0400 Body height 162.[address] Joan Hughes Work Phone: [facility] Work Phone: 09-23-2021 16:35-0400 Inhaled oxygen concentration 41 % Dr. Joan Hughes Work Phone: [facility] Work Phone: 09-16-2021 14:53-0400 Body mass index (BMI) [Ratio] 25.7 kg/m2 Dr. Joan Hughes Work Phone: [facility] Work Phone: 09-16-2021 14:11-0400 Body temperature 99.3 [degF] [facility] Work Phone: 09-16-2021 14:11-0400 Diastolic blood pressure 56 mm[Hg] [facility] Work Phone: 09-16-2021 14:11-0400 Heart rate 114 /min [facility] Work Phone: 09-16-2021 14:11-0400 Respiratory rate 16 /min [facility] Work Phone: 09-16-2021 14:11-0400 SaO2% (BldA) [Mass fraction] 95 % [facility] Work Phone: 09-16-2021 14:11-0400 Systolic blood pressure 132 mm[Hg] [facility] Work Phone: 09-16-2021 13:00-0400 Body height 162.56 cm [facility] Work Phone: 09-16-2021 13:00-0400 Body mass index (BMI) [Ratio] 26.8 kg/m2 [facility] Work Phone: 09-16-2021 13:00-0400 Body weight 70.8 kg [facility] Work Phone: 04-09-2021 13:25-0400 Body temperature 97.9 [degF] Chair 7 [facility] 04-09-2021 13:25-0400 Diastolic blood pressure 80 mm[Hg] Chair 7 [facility] 04-09-2021 13:25-0400 Heart rate 123 /min Chair 7 [facility] 04-09-2021 13:25-0400 SaO2% (BldA) [Mass fraction] 97 % Chair 7 [facility] 04-09-2021 13:25-0400 Systolic blood pressure 133 mm[Hg] Chair 7 [facility] 04-09-2021 11:06-0400 Respiratory rate 16 /min Chair 7 [facility] 04-09-2021 07:57-0400 Body height 162.6 cm Willard Epperson MD Work Phone: [facility] 04-09-2021 07:57-0400 Body mass index (BMI) [Ratio] 25.06 kg/m2 Willard Epperson MD Work Phone: [facility] 04-09-2021 07:57-0400 Body weight 66.22 kg Willard Epperson MD Work Phone: [facility] 04-09-2021 07:57-0400 Diastolic blood pressure 65 mm[Hg] Willard Epperson MD Work Phone: [facility] 04-09-2021 07:57-0400 Heart rate 111 /min Willard Epperson MD Work Phone: [facility] 04-09-2021 07:57-0400 Systolic blood pressure 123 mm[Hg] Willard Epperson MD Work Phone: [facility] 10-16-2020 12:50-0400 Body temperature 98.29 [degF] Chair 2 [facility] 10-16-2020 12:50-0400 Diastolic blood pressure 63 mm[Hg] Chair 2 [facility] 10-16-2020 12:50-0400 Heart rate 130 /min Chair 2 [facility] 10-16-2020 12:50-0400 SaO2% (BldA) [Mass fraction] 96 % Chair 2 [facility] 10-16-2020 12:50-0400 Systolic blood pressure 128 mm[Hg] Chair 2 [facility] 10-16-2020 11:34-0400 Respiratory rate 16 /min Chair 2 [facility] 04-17-2020 14:51-0500 BP Diastolic 70 mm[Hg] Chair 2 [facility] 04-17-2020 14:51-0500 BP Systolic 136 mm[Hg] Chair 2 [facility] 04-17-2020 14:51-0500 Pulse (Heart Rate) 126 /min Chair 2 [facility] 04-17-2020 14:51-0500 Pulse Oximetry 97 % Chair 2 [facility] 04-17-2020 14:51-0500 Respiratory Rate 16 /min Chair 2 [facility] 04-17-2020 14:48-0500 Body Temperature 98.4 [degF] Chair 2 [facility] 04-17-2020 10:41-0500 BMI (Body Mass Index) 22.31 kg/m2 Willard Zhou [facility] 04-17-2020 10:41-0500 Body weight 58.97 kg Willard Epperson [facility] 04-17-2020 10:41-0500 BP Diastolic 80 mm[Hg] Willard Epperson [facility] 04-17-2020 10:41-0500 BP Systolic 131 mm[Hg] Willard Epperson [facility] 04-17-2020 10:41-0500 Height 162.6 cm Willard Epperson [facility] 04-17-2020 10:41-0500 Pulse (Heart Rate) 86 /min Willard Epperson [facility] 10-18-2019 13:54-0400 Body Temperature 97.5 [degF] Chair 1 [facility] 10-18-2019 13:54-0400 BP Diastolic 79 mm[Hg] Chair 1 [facility] 10-18-2019 13:54-0400 BP Systolic 137 mm[Hg] Chair 1 [facility] 10-18-2019 13:54-0400 Pulse (Heart Rate) 112 /min Chair 1 [facility] 10-18-2019 13:54-0400 Pulse Oximetry 95 % Chair 1 [facility] 10-18-2019 13:54-0400 Respiratory Rate 20 /min Chair 1 [facility] 10-18-2019 07:03-0400 BMI (Body Mass Index) 22.31 kg/m2 Willard Epperson [facility] [facility] [place] 10-18-2019 07:03-0400 Body weight 58.97 kg Willard Epperson [facility] [place] 10-18-2019 07:03-0400 Height 162.6 cm Willard Epperson [facility] [place] 04-12-2019 12:17-0500 BMI (Body Mass Index) 22.31 kg/m2 Willard pEperson [facility] [place] 04-12-2019 12:17-0500 Body weight 58.97 kg Willard Epperson [facility] [place] 04-12-2019 12:17-0500 BP Diastolic 78 mm[Hg] Willard Epperson [facility] [place] 04-12-2019 12:17-0500 BP Systolic 124 mm[Hg] Willard Epperson [facility] [place] 04-12-2019 12:17-0500 Height 162.6 cm Willard Epperson [facility] [place] 04-12-2019 12:17-0500 Pulse (Heart Rate) 106 /min Willard Epperson [facility] [place] 04-12-2019 12:12-0500 Body Temperature 97.9 [degF] Chair 5 [facility] [place] 04-12-2019 12:12-0500 BP Diastolic 81 mm[Hg] Chair 5 [facility] [place] 04-12-2019 12:12-0500 BP Systolic 134 mm[Hg] Chair 5 [facility] [place] 04-12-2019 12:12-0500 Pulse (Heart Rate) 104 /min Chair 5 [facility] [place] 04-12-2019 12:12-0500 Pulse Oximetry 97 % Chair 5 [facility] [place] 04-12-2019 12:12-0500 Respiratory Rate 16 /min Chair 5 [facility] [place] 10-12-2018 13:25-0400 Body Temperature 98.1 [degF] Chair 1 [facility] [place] 10-12-2018 13:25-0400 BP Diastolic 74 mm[Hg] Chair 1 [facility] [place] 10-12-2018 13:25-0400 BP Systolic 137 mm[Hg] Chair 1 [facility] [place] 10-12-2018 13:25-0400 Pulse (Heart Rate) 130 /min Chair 1 [facility] [place] 10-12-2018 13:25-0400 Pulse Oximetry 95 % Chair 1 [facility] [place] 10-12-2018 10:14-0400 Respiratory Rate 14 /min Chair 1 [facility] [place] 09-28-2018 15:44-0400 BMI (Body Mass Index) 22.31 kg/m2 Willard Epperson [facility] [place] 09-28-2018 15:44-0400 Body weight 58.97 kg Willard Epperson [facility] [place] 09-28-2018 15:44-0400 BP Diastolic 80 mm[Hg] Willard Epperson [facility] [place] 09-28-2018 15:44-0400 BP Systolic 145 mm[Hg] Willard Epperson [facility] [place] 09-28-2018 15:44-0400 Height 162.6 cm Willard Epperson [facility] [place] 09-28-2018 15:44-0400 Pulse (Heart Rate) 89 /min Willard Epperson [facility] [place] 09-28-2018 11:38-0400 BMI (Body Mass Index) 22.31 kg/m2 Willard Epperson [facility] [place] 09-28-2018 11:38-0400 Height 162.6 cm Willard Epperson [facility] [place] 09-28-2018 11:38-0400 Weight 58.97 kg Willard Epperson [facility] [place] 01-19-2018 11:34-0400 BMI (Body Mass Index) 20.77 kg/m2 Willard Epperson [facility] [place] 01-19-2018 11:34-0400 BP Diastolic 70 mm[Hg] Willard Epperson [facility] [place] 01-19-2018 11:34-0400 BP Systolic 118 mm[Hg] Willard Epperson [facility] [place] 01-19-2018 11:34-0400 Height 162.6 cm Willard Epperson [facility] [place] 01-19-2018 11:34-0400 Pulse (Heart Rate) 76 /min Willard Epperson [facility] [place] 01-19-2018 11:34-0400 Weight 54.88 kg Willard Epperson [facility] [place] 10-11-2017 14:08-0400 Body Temperature 98.1 [degF] Chair 1 [facility] [place] 10-11-2017 14:08-0400 BP Diastolic 79 mm[Hg] Chair 1 [facility] [place] 10-11-2017 14:08-0400 BP Systolic 131 mm[Hg] Chair 1 [facility] [place] 10-11-2017 14:08-0400 Pulse (Heart Rate) 106 /min Chair 1 [facility] [place] 10-11-2017 14:08-0400 Pulse Oximetry 95 % Chair 1 [facility] [place] 10-11-2017 14:08-0400 Respiratory Rate 14 /min Chair 1 [facility] [place] 08-25-2017 11:31-0400 BMI (Body Mass Index) 22.31 kg/m2 Willard Epperson [facility] [place] 08-25-2017 11:31-0400 BP Diastolic 83 mm[Hg] Willard Epperson [facility] [place] 08-25-2017 11:31-0400 BP Systolic 137 mm[Hg] Willard Epperson [facility] [place] 08-25-2017 11:31-0400 Height 162.6 cm Willard Epperson [facility] [place] 08-25-2017 11:31-0400 Pulse (Heart Rate) 81 /min Willard Epperson [facility] [place] 08-25-2017 11:31-0400 Weight 58.97 kg Willard Epperson [facility] [place] 05-25-2017 09:23-0500 BMI (Body Mass Index) 22.49 kg/m2 Willard Epperson [facility] [place] Work Phone: 05-25-2017 09:23-0500 BP Diastolic 74 mm[Hg] Willard Epperson [facility] [place] Work Phone: 05-25-2017 09:23-0500 BP Systolic 104 mm[Hg] Willard Epperson [facility] [place] Work Phone: 05-25-2017 09:23-0500 Height 162.6 cm Willard Epperson [facility] [place] Work Phone: 05-25-2017 09:23-0500 Pulse (Heart Rate) 106 /min Willard Epperson [facility] [place] Work Phone: 05-25-2017 09:23-0500 Weight 59.42 kg Willard Epperson [facility] [place] Work Phone: 05-04-2017 13:10-0500 Body Temperature 98.29 [degF] Physician No [facility] [place] Work Phone: 05-04-2017 13:10-0500 BP Diastolic 77 mm[Hg] Physician No [facility] [place] Work Phone: 05-04-2017 13:10-0500 BP Systolic 121 mm[Hg] Physician No [facility] [place] Work Phone: 05-04-2017 13:10-0500 Pulse (Heart Rate) 104 /min Physician No [facility] Work Phone: 05-04-2017 13:10-0500 Pulse Oximetry 96 % Physician No [facility] Work Phone: 05-04-2017 11:55-0500 Respiratory Rate 14 /min Physician No [facility] Work Phone: 04-13-2017 16:00-0500 Body Temperature 98.01 [degF] Physician No [facility] Work Phone: 04-13-2017 16:00-0500 BP Diastolic 77 mm[Hg] Physician No [facility] Work Phone: 04-13-2017 16:00-0500 BP Systolic 137 mm[Hg] Physician No [facility] Work Phone: 04-13-2017 16:00-0500 Pulse (Heart Rate) 115 /min Physician No [facility] Work Phone: 04-13-2017 16:00-0500 Pulse Oximetry 96 % Physician No [facility] Work Phone: 04-13-2017 16:00-0500 Respiratory Rate 16 /min Physician No [facility] Work Phone: 02-13-2017 09:07-0400 BMI (Body Mass Index) 21.8 kg/m2 Willard Zhou [facility] Work Phone: 02-13-2017 09:07-0400 BP Diastolic 81 mm[Hg] Willard Epperson [facility] Work Phone: 02-13-2017 09:07-0400 BP Systolic 145 mm[Hg] Willard Epperson [facility] Work Phone: 02-13-2017 09:07-0400 Height 162.6 cm Willard Epperson [facility] Work Phone: 02-13-2017 09:07-0400 Pulse (Heart Rate) 73 /min Willard Epperson [facility] Work Phone: 02-13-2017 09:07-0400 Weight 57.61 kg Willard Epperson [facility] [place] Work Phone: Encounters Encounter Date Encounter Type Care Provider Facility Start: 10-11-2024 ambulatory Britney CULVER Fac ility:[facility] Start: 10-08-2024 ambulatory Breanne CULVER Fa cility:[facility] Start: 09-04-2024 [facility] Start: 09-03-2024 End: 09-04-2024 ambulatory Breanne CULVER Facility:[facility] Start: 09-03-2024 [facility] Start: 09-03-2024 End: 09-03-2024 ambulatory Breanne CULVER Facility:[facility] Start: 08-19-2024 End: 08-19-2024 ambulatory Britney Worthington NP Facility[place] Start: 08-19-2024 End: 08-19-2024 Patient encounter [facility] Start: 08-19-2024 End: 08-19-[address] Joan Hughes MD Work Phone: [facility] Work Phone: Start: 08-19-2024 End: 08-19-2024 [facility] Start: 08-19-2024 End: 08-19-2024 ambulatory Breanne CULVER Facility:[facility] Start: 08-06-2024 End: 08-06-[address] Joan Hughes MD Work Phone: [facility] Work Phone: Start: 08-06-2024 End: 08-06-2024 [facility] Start: 08-06-2024 [facility] Start: 08-05-2024 End: 08-06-2024 ambulatory Breanne CULVER Facility:[facility] Start: 08-05-2024 End: 08-05-2024 Patient encounter procedure Britney BLANCO -[facility] Work Phone: Start: 07-09-2024 End: 07-09-[address] Breanne Ruiz MD -[facility] Work Phone: Start: 07-09-2024 End: 07-09-2024 ambulatory Efvannessa Vange Facility:[facility] Start: 07-09-2024 Registered Referred Breanne Ruiz MD [facility] Start: 06-18-2024 End: 06-18-2024 ambulatory [facility] Facility:[facility] Start: 06-18-2024 End: 06-18-2024 Patient encounter procedure Britney BLANCO -[facility] Work Phone: Start: 06-11-2024 ambulatory Breanne Vange [place] Fa cility:[facility] Start: 06-11-2024 Registered Referred Breanne Ruiz MD [facility] Start: 06-07-2024 End: 06-07-2024 ambulatory [facility] Facility:[facility] Start: 06-07-2024 End: 06-07-2024 Patient encounter procedure Britney BLANCO [facility] Work Phone: Start: 05-07-2024 End: 05-07-2024 ambulatory [facility] Facility:[facility] Start: 05-07-2024 End: 05-07-2024 ambulatory Efewongbe Isaelghe OLS Facility:[facility] Start: 05-01-2024 End: 05-01-2024 ambulatory [facility] Facility:[facility] Start: 04-15-2024 End: 04-15-2024 ambulatory Efewongbe Isaelghe OLS Facility:[facility] Start: 04-10-2024 End: 04-10-2024 ambulatory [facility] Facility:[facility] Start: 04-09-2024 End: 04-09-2024 ambulatory Efewongbe Isaelghe OLS Facility:[facility] Start: 03-28-2024 End: 03-28-2024 ambulatory Britney Elin [employer] Facility:[facility] Start: 03-19-2024 End: 03-19-2024 ambulatory Britney Elin [employer] Facility:[facility] Start: 03-07-2024 ambulatory Efewongbe Oleghe OLS Fa cility:[facility] Start: 03-05-2024 End: 03-05-2024 ambulatory Joan Hughes Facility:[facility] Start: 02-27-2024 ambulatory Efewongbe Oleghe OLS Fa cility:[facility] Start: 02-07-2024 End: 02-07-2024 ambulatory Britney Worthington [employer] Facility:[facility] Start: 02-06-2024 ambulatory Efewongbe Oleghe OLS Fa cility:[facility] Start: 01-22-2024 ambulatory Efewongbe Oleghe OLS Fa cility:[facility] Start: 01-09-2024 End: 01-10-2024 ambulatory Efewongbe Oleghe OLS Facility:[facility] Start: 01-09-2024 End: 01-09-2024 ambulatory Efewongbe Oleghe OLS Facility:[facility] Start: 12-25-2023 End: 12-25-2023 ambulatory Joan Hughes Facility:[facility] Start: 12-05-2023 End: 12-05-2023 ambulatory Efewongbe Oleghe OLS Facility:[facility] Start: 11-07-2023 End: 11-07-2023 ambulatory Joan Hughes Facility:[facility] Start: 11-07-2023 End: 11-07-2023 ambulatory Efewongbe Oleghe OLS Facility:[facility] Start: 09-12-2023 End: 09-12-[address] Joan Hughes Work Phone: [facility] Work Phone: Start: 09-05-2023 End: 09-05-[address] Joan Hughes Work Phone: [facility] Work Phone: Start: 09-05-2023 End: 09-05-[address] Joan Hughes Work Phone: [facility] Start: 08-14-2023 End: 08-14-[address] Joan Hughes Work Phone: [facility] Work Phone: Start: 08-10-2023 End: 08-10-[address] Joan Hughes Work Phone: [facility] Start: 08-10-[address] Joan lacy Work Phone: [facility] Start: 08-08-2023 End: 08-08-[address] Joan Hughes Work Phone: [facility] Work Phone: Start: 08-08-2023 End: 08-08-[address] Joan Hughes Work Phone: [facility] Start: 07-17-2023 End: 07-17-[address] Joan Hughes Work Phone: [facility] Work Phone: Start: 07-17-2023 End: 07-17-[address] Joan Hughes Work Phone: [facility] Start: 07-11-2023 End: 07-11-[address] Joan Hughes Work Phone: [facility] Work Phone: Start: 07-03-2023 End: 07-03-[address] Joan Hughes Work Phone: [facility] Work Phone: Start: 07-03-2023 End: 07-03-[address] Joan Hughes Work Phone: [facility] Start: 07-03-[address] Joan lacy Work Phone: [facility] Start: 06-26-2023 End: 06-26-[address] Joan Hughes Work Phone: [facility] Work Phone: Start: 06-08-2023 End: 06-08-[address] Joan Hughes Work Phone: [facility] Work Phone: Start: 06-06-2023 End: 06-06-[address] Joan Hughes Work Phone: [facility] Work Phone: Start: 06-06-2023 End: 06-06-[address] Joan Hughes Work Phone: [facility] Start: 05-09-2023 End: 05-09-[address] Joan Hughes Work Phone: [facility] Work Phone: Start: 05-09-2023 End: 05-09-[address] Joan Hughes Work Phone: [facility] Work Phone: Start: 05-09-2023 End: 05-09-[address] Joan Hughes Work Phone: [facility] Start: 05-01-2023 End: 05-01-[address] Joan Hughes Work Phone: [facility] Work Phone: Start: 03-14-2023 End: 03-14-[address] Joan Hughes Work Phone: [facility] Work Phone: Start: 03-10-2023 End: 03-10-[address] Joan Hughes Work Phone: [facility] Work Phone: Start: 02-27-2023 End: 02-27-[address] Joan Hughes Work Phone: [facility] Work Phone: Start: 02-22-2023 End: 02-22-[address] Joan Hughes Work Phone: [facility] Start: 02-22-[address] Joan lacy Work Phone: [facility] Start: 02-21-2023 End: 02-21-[address] Joan Hughes Work Phone: [facility] Start: 02-21-[address] Joan lacy Work Phone: [facility] Start: 02-13-2023 End: 02-13-[address] Joan Hughes Work Phone: [facility] Work Phone: Start: 02-13-2023 End: 02-13-[address] Joan Huhges Work Phone: [facility] Start: 02-13-[address] Joan lacy Work Phone: [facility] Start: 02-07-2023 End: 02-07-[address] Joan Hughes Work Phone: [facility] Work Phone: Start: 02-07-2023 End: 02-07-[address] Joan Hughes Work Phone: [facility] Start: 01-24-2023 End: 01-24-[address] Joan Hughes Work Phone: [facility] Start: 01-24-[address] Joan lacy Work Phone: [facility] Start: 01-10-2023 End: 01-10-[address] Joan Hughes Work Phone: [facility] Work Phone: Start: 01-10-2023 End: 01-10-[address] Joan Hughes Work Phone: [facility] Start: 01-10-[address] Joan lacy Work Phone: [facility] Start: 01-03-2023 End: 01-03-[address] Joan Hughes Work Phone: [facility] Work Phone: Start: 12-27-2022 End: 12-27-[address] Joan Hughes Work Phone: [facility] Work Phone: Start: 12-27-2022 End: 12-27-[address] Joan Hughes Work Phone: [facility] Start: 12-27-[address] Joan lacy Work Phone: [facility] Start: 12-23-2022 End: 12-23-[address] Joan Hughes Work Phone: [facility] Work Phone: Start: 12-13-2022 End: 12-13-[address] Joan Hughes Work Phone: [facility] Work Phone: Start: 12-13-2022 End: 12-13-[address] Joan Hughes Work Phone: [facility] Start: 12-13-[address] Joan lacy Work Phone: [facility] Start: 11-29-2022 End: 11-29-[address] Joan Hughes Work Phone: [facility] Work Phone: Start: 11-29-2022 End: 11-29-[address] Joan Hughes Work Phone: [facility] Start: 11-29-[address] Joan lacy Work Phone: [facility] Start: 11-15-2022 End: 11-15-[address] Joan Hughes Work Phone: [facility] Start: 11-15-[address] Joan lacy Work Phone: [facility] Start: 11-08-2022 End: 11-08-[address] Joan Hughes Work Phone: [facility] Work Phone: Start: 11-01-2022 End: 11-01-[address] Joan Hugehs Work Phone: [facility] Work Phone: Start: 11-01-2022 End: 11-01-[address] Joan Hughes Work Phone: [facility] Start: 10-27-2022 End: 10-27-[address] Joan Hughes Work Phone: [facility] Work Phone: Start: 10-18-2022 End: 10-18-[address] Joan Hughes Work Phone: [facility] Start: 10-18-[address] Joan lacy Work Phone: [facility] Start: 10-04-2022 End: 10-04-[address] Joan Hughes Work Phone: [facility] Work Phone: Start: 10-04-2022 End: 10-04-[address] Joan Hughes Work Phone: [facility] Start: 09-20-2022 End: 09-20-[address] Joan Hughes Work Phone: [facility] Work Phone: Start: 09-20-2022 End: 09-20-[address] Joan Hughes Work Phone: [facility] Start: 09-20-[address] Joan lacy Work Phone: [facility] Start: 09-06-2022 End: 09-06-[address] Joan Hughes Work Phone: [facility] Start: 09-06-2022 End: 09-06-[address] Joan Hughes Work Phone: [facility] Work Phone: Start: 09-06-2022 End: 09-06-[address] Joan Hughes Work Phone: [facility] Start: 09-06-[address] Joan lacy Work Phone: [facility] Start: 08-23-2022 End: 08-23-[address] Joan Hughes Work Phone: [facility] Start: 08-23-2022 End: 08-23-[address] Joan Hughes Work Phone: [facility] Work Phone: Start: 08-23-2022 End: 08-23-[address] Joan Hughes Work Phone: [facility] Start: 08-23-[address] Joan lacy Work Phone: [facility] Start: 08-09-2022 End: 08-09-[address] Joan Hughes Work Phone: [facility] Work Phone: Start: 08-09-2022 End: 08-09-[address] Joan Hughes Work Phone: [facility] Start: 08-09-[address] Joan lacy Work Phone: [facility] Start: 07-26-2022 End: 07-26-[address] Joan Hughes Work Phone: [facility] Work Phone: Start: 07-26-2022 End: 07-26-[address] Joan Hughes Work Phone: [facility] Start: 07-26-[address] Joan lacy Work Phone: [facility] Start: 07-13-2022 End: 07-13-[address] Joan Hughes Work Phone: [facility] Work Phone: Start: 07-13-2022 End: 07-13-[address] Joan Hughes Work Phone: [facility] Start: 07-13-[address] Joan lacy Work Phone: [facility] Start: 07-12-2022 End: 07-12-[address] Joan Hughes Work Phone: [facility] Start: 07-12-2022 End: 07-12-[address] Joan Hughes Work Phone: [facility] Work Phone: Start: 07-12-2022 End: 07-12-[address] Joan Hughes Work Phone: [facility] Start: 07-04-2022 End: 07-04-[address] Joan Hughes Work Phone: [facility] Start: 06-28-2022 End: 06-28-[address] Joan Hughes Work Phone: [facility] Work Phone: Start: 06-28-2022 End: 06-28-[address] Joan Hughes Work Phone: [facility] Start: 06-27-2022 End: 06-27-[address] Joan Hughes Work Phone: [facility] Start: 06-23-2022 End: 06-23-2022 Telemedicine consultation with patient Willard Epperson MD Work Phone: [facility] Comment on above: Multiple sclerosis, primary progressive (HCC) (Primary Dx) Start: 06-14-2022 End: 06-14-[address] Joan Hughes Work Phone: [facility] Start: 06-14-[address] Joan lacy Work Phone: [facility] Start: 06-03-2022 End: 06-03-[address] Joan Hughes Work Phone: [facility] Start: 06-03-2022 End: 06-03-[address] Joan Hughes Work Phone: [facility] Work Phone: Start: 06-03-2022 End: 06-03-[address] Joan Hughes Work Phone: [facility] Start: 06-03-[address] Joan lacy Work Phone: [facility] Start: 06-01-2022 End: 06-01-[address] Joan Hughes Work Phone: [facility] Work Phone: Start: 06-01-2022 End: 06-01-[address] Joan Hughes Work Phone: [facility] Start: 06-01-[address] Joan lacy Work Phone: [facility] Start: 05-31-[address] Joan lacy Work Phone: [facility] Start: 05-28-2022 End: 05-28-[address] Joan Hughes Work Phone: [facility] Start: 05-28-[address] Joan lacy Work Phone: [facility] Start: 05-27-2022 End: 05-27-[address] Joan Hughes Work Phone: [facility] Work Phone: Start: 05-27-2022 End: 05-27-[address] Joan Hughes Work Phone: [facility] Start: 05-27-[address] Joan lacy Work Phone: [facility] Start: 05-17-2022 End: 05-17-[address] Joan Hughes Work Phone: [facility] Work Phone: Start: 05-17-2022 End: 05-17-[address] Joan Hughes Work Phone: [facility] Start: 05-17-[address] Joan lacy Work Phone: [facility] Start: 05-03-2022 End: 05-03-[address] Joan Hughes Work Phone: [facility] Work Phone: Start: 05-03-2022 End: 05-03-[address] Joan Hughes Work Phone: [facility] Start: 04-19-2022 End: 04-19-[address] Joan Hughes Work Phone: [facility] Start: 04-19-2022 Registered Referred Dr. Joan lacy Work Phone: [facility] Start: 04-09-2022 End: 04-09-[address] Joan Hughes Work Phone: [facility] Start: 04-05-2022 End: 04-05-[address] Joan Hughes Work Phone: [facility] Start: 04-05-2022 End: 04-05-[address] Joan Hughes Work Phone: [facility] Work Phone: Start: 04-05-2022 End: 04-05-[address] Joan Hughes Work Phone: [facility] Start: 04-05-[address] Joan lacy Work Phone: [facility] Start: 03-22-2022 End: 03-22-[address] Joan Hughes Work Phone: [facility] Work Phone: Start: 03-22-2022 End: 03-22-[address] Joan Hughes Work Phone: [facility] Start: 03-22-[address] Joan lacy Work Phone: [facility] Start: 03-08-2022 End: 03-08-[address] Joan Hughes Work Phone: [facility] Work Phone: Start: 03-08-2022 End: 03-08-[address] Joan Hughes Work Phone: [facility] Start: 02-22-2022 End: 02-22-[address] Joan Hughes Work Phone: [facility] Work Phone: Start: 02-22-2022 End: 02-22-[address] Joan Hughes Work Phone: [facility] Start: 02-22-[address] Joan lacy Work Phone: [facility] Start: 02-17-2022 End: 02-17-[address] Joan Hughes Work Phone: [facility] Start: 02-08-2022 End: 02-08-[address] Joan Hughes Work Phone: [facility] Work Phone: Start: 02-08-2022 End: 02-08-[address] Joan Hughes Work Phone: [facility] Start: 02-08-[address] Joan lacy Work Phone: [facility] Start: 01-25-2022 End: 01-25-[address] Joan Hughes Work Phone: [facility] Work Phone: Start: 01-25-2022 End: 01-25-[address] Joan Hughes Work Phone: [facility] Start: 01-25-[address] Joan lacy Work Phone: [facility] Start: 01-14-2022 ambulatory [facility] Start: 01-11-2022 End: 01-11-[address] Joan Hughes Work Phone: [facility] Work Phone: Start: 01-11-2022 End: 01-11-[address] Joan Hughes Work Phone: [facility] Start: 12-28-2021 End: 12-28-[address] Joan Hughes Work Phone: [facility] Start: 12-14-2021 End: 12-14-[address] Joan Hughes Work Phone: [facility] Start: 12-01-2021 ambulatory Joan villanueva MD Work Phone: [facility] Start: 11-30-2021 End: 11-30-[address] Joan Hughes Work Phone: [facility] Start: 11-16-2021 End: 11-16-[address] Joan Hughes Work Phone: [facility] Start: 11-16-[address] Joan lacy Work Phone: [facility] Start: 11-13-2021 End: 11-13-[address] Joan Hughes Work Phone: [facility] Start: 11-12-2021 End: 11-12-[address] Joan Hughes Work Phone: [facility] Start: 11-02-2021 End: 11-02-[address] Joan Hughes Work Phone: [facility] Start: 11-02-[address] Joan lacy Work Phone: [facility] Start: 10-25-2021 End: 10-25-[address] Joan Hughes Work Phone: [facility] Start: 10-25-[address] Joan lacy Work Phone: [facility] Start: 10-18-2021 End: 10-18-[address] oJan Hughes Work Phone: [facility] Start: 10-18-[address] Joan lacy Work Phone: [facility] Start: 10-11-2021 End: 10-11-[address] Joan Hughes Work Phone: [facility] Start: 10-08-2021 End: 10-08-[address] Joan Hughes Work Phone: [facility] Start: 09-28-2021 Non-patient / Non-visit Dr. Michael Hughes Work Phone: [facility] Start: 09-27-2021 Non-patient / Non-visit Dr. Michael Hughes Work Phone: [facility] Start: 09-26-2021 Non-patient / Non-visit Dr. Michael Hughes Work Phone: [facility] Start: 09-25-2021 Non-patient / Non-visit Dr. Michael Hughes Work Phone: [facility] Start: 09-25-2021 Non-patient / Non-visit Dr. Michael Hughes Work Phone: [facility] Start: 09-24-2021 Non-patient / Non-visit Dr. Michael Hughes Work Phone: [facility] Start: 09-24-2021 Non-patient / Non-visit Dr. Michael perry [employer] Work Phone: [facility] Start: 09-23-2021 Non-patient / Non-visit Dr. Michael perry [employer] Work Phone: [facility] Start: 09-23-2021 Non-patient / Non-visit Dr. Michael perry [employer] [facility] Start: 09-22-2021 Non-patient / Non-visit Dr. Michael perry [employer] Work Phone: [facility] Start: 09-22-2021 Non-patient / Non-visit Dr. Michael perry [employer] [facility] Start: 09-21-2021 Coordination of care plan Mer Prado RN [facility] Start: 09-21-2021 Non-patient / Non-visit Dr. Michael perry [employer] Work Phone: [facility] Start: 09-21-2021 Non-patient / Non-visit Dr. Michael perry [employer] [facility] Start: 09-20-2021 Non-patient / Non-visit Dr. Michael perry [employer] Work Phone: [facility] Start: 09-20-2021 Non-patient / Non-visit Dr. Michael perry [employer] [facility] Start: 09-19-2021 Non-patient / Non-visit Dr. Michael perry [employer] Work Phone: [facility] Start: 09-19-2021 Non-patient / Non-visit Dr. Michael perry [employer] Work Phone: [facility] Start: 09-18-2021 Non-patient / Non-visit Dr. Michael Hughes Work Phone: [facility] Start: 09-17-2021 Non-patient / Non-visit Dr. Michael Hughes Work Phone: [facility] Start: 09-16-2021 Non-patient / Non-visit Dr. Michael Hughes Work Phone: [facility] Start: 09-16-2021 End: 09-28-2021 Evaluation and management of inpatient [facility] 3 Start: 07-22-2021 ambulatory [facility] Start: 04-09-2021 End: 04-13-2021 ambulatory [facility] Start: 04-09-2021 End: 04-09-2021 Office outpatient visit 40 minutes Willard Epperson MD Work Phone: [facility] Comment on above: Multiple sclerosis, primary progressive (HCC) (Primary Dx); Vitamin D deficiency; Spasticity; Ataxia; Cognitive impairment Start: 04-09-2021 End: 04-09-2021 ambulatory Willard Epperson MD Work Phone: [facility] Comment on above: Multiple sclerosis, primary progressive (HCC) (Primary Dx); Multiple sclerosis (HCC) Start: 04-08-2021 Coordination of care plan Zahra Pratt RN [facility] Start: 01-08-2021 End: 01-08-2021 Refill Danyell Cardoso MA [facility] Comment on above: Vitamin D deficiency Start: 10-29-2020 End: 10-29-2020 Orders Only Willard Epperson MD Work Phone: [facility] Comment on above: Multiple sclerosis, primary progressive (HCC) (Primary Dx) Start: 10-16-2020 End: 10-20-2020 ambulatory WILLARD EPPERSON [facility] Start: 10-16-2020 End: 10-16-2020 Office outpatient visit 25 minutes Willard Epperson MD Work Phone: [facility] Comment on above: Multiple sclerosis, primary progressive (HCC) (Primary Dx); Vitamin D deficiency; Paresis of lower extremity (HCC); History of gait disorder Start: 10-16-2020 End: 10-16-2020 ambulatory WILLARD EPPERSON [facility] Start: 10-16-2020 End: 10-16-2020 ambulatory Willard Epperson MD Work Phone: [facility] Comment on above: Multiple sclerosis, primary progressive (HCC) (Primary Dx) Start: 10-13-2020 End: 10-13-2020 Orders Only Willard Epperson MD Work Phone: [facility] Start: 10-12-2020 End: 10-12-2020 Coordination of care plan Fifi Guillermo RN [facility] Start: 10-07-2020 End: 10-07-2020 Coordination of care plan Fifi Guillermo RN [facility] Start: 08-06-2020 End: 08-06-2020 Orders Only Hermila Bowen Work Phone: [facility] Start: 04-21-2020 End: 04-21-2020 Documentation procedure Jeanne Hilario [facility], Neuroscience Start: 04-17-2020 End: 04-17-2020 ambulatory WILLARD EPPERSON [facility] Start: 04-17-2020 End: 04-17-2020 Office outpatient visit 25 minutes Willard Epperson Work Phone: [facility] Comment on above: Multiple sclerosis ( HCC) (Primary Dx); Fatigue, unspecified type; Orthostasis; Falls frequently Start: 04-17-2020 End: 04-17-2020 Patient encounter procedure Willard Epperson Work Phone: [facility] Comment on above: Multiple sclerosis, primary progressive (HCC) (Primary Dx) Start: 04-13-2020 End: 04-13-2020 Coordination of care plan [facility] Start: 10-29-2019 End: 10-29-2019 Admission to [facility] Joan Hughes [facility] Start: 10-24-2019 End: 10-24-2019 Documentation procedure Jeanne Hilario [facility], [facility] Start: 10-18-2019 End: 10-18-2019 Phys/qhp telephone evaluation 11-20 min Willard Epperson Work Phone: [facility] Comment on above: Multiple sclerosis ( HCC) Start: 10-18-2019 End: 10-18-2019 Patient encounter procedure Willard Epperson Work Phone: [facility] Comment on above: Multiple sclerosis, primary progressive (HCC) (Primary Dx) Start: 10-18-2019 End: 10-18-2019 Subsequent hospital visit by physician Willard Epperson Work Phone: [facility] Comment on above: Multiple sclerosis ( HCC) Start: 10-09-2019 End: 10-09-2019 Coordination of care plan [facility] Start: 04-18-2019 End: 04-18-2019 Documentation procedure Jeannedivya Hilario [facility], [facility] Start: 04-12-2019 End: 04-12-2019 Office outpatient visit 25 minutes Willard Epperson Work Phone: [facility] Comment on above: Multiple sclerosis ( HCC) (Primary Dx) Start: 04-12-2019 End: 04-12-2019 Patient encounter procedure Willard Epperson Work Phone: [facility] Comment on above: Multiple sclerosis, primary progressive (HCC) (Primary Dx); Multiple sclerosis (HCC) Start: 04-11-2019 End: 04-11-2019 Coordination of care plan Melva Zuleta [facility] Start: 10-12-2018 End: 10-12-2018 Patient encounter procedure Willard Epperson Work Phone: [facility] Comment on above: Multiple sclerosis, primary progressive (HCC) (Primary Dx) Start: 09-28-2018 End: 09-28-2018 Office outpatient visit 25 minutes Willard Epperson Work Phone: [facility] Comment on above: Multiple sclerosis ( HCC) (Primary Dx); Therapeutic drug monitoring Start: 09-28-2018 End: 09-28-2018 Patient encounter procedure Willard Epperson Work Phone: [facility] Comment on above: Multiple sclerosis ( HCC) Start: 01-23-2018 Patient encounter Jeanne Hilario [facility] Start: 01-19-2018 End: 01-19-2018 Office outpatient visit 40 minutes Aysha Epperson Work Phone: [facility] Start: 10-11-2017 End: 10-11-2017 Ambulatory Murtaza Fish Work Phone: [facility] Start: 08-25-2017 Office/outpatient vi sit, est, level 4 Willard Epperson Work Phone: [facility] Start: 08-11-2017 Ambulatory Jeanne Hilario [facility] Start: 05-25-2017 Ambulatory Jeanne Hilario [facility] Start: 05-25-2017 Office/outpatient vi sit, est, level 4 Willard Epperson Work Phone: [facility] Start: 05-04-2017 Ambulatory Murtaza muñoz Work Phone: [facility] Start: 04-13-2017 Ambulatory Murtaza muñoz Work Phone: [facility] Start: 02-13-2017 End: 02-13-2017 Documentation procedure Jeanne Hilario [facility] Start: 02-13-2017 Office/outpatient vi sit, est, level 4 Willard Epperson Work Phone: [facility] Start: 01-25-2017 Ambulatory Jeanne Hilario [facility] Procedures Date Procedure Procedure Detail Performing Clinician Start: 08-19-2024 Gram stain microscopy Norm Hughes MD Work Phone: Start: 08-19-[address] Joan Hughes MD Work Phone: Start: 08-05-[address] Joan Hughes MD Work Phone: Start: 02-22-[address] Joan Hughes Work Phone: Start: 02-13-[address] Joan Hughes Work Phone: Start: 11-13-2021 MRI of brain without contrast Dr. Joan Hughes Work Phone: Start: 10-18-[address] Joan Hughes Work Phone: Start: 09-24-[address] Joan lacy Work Phone: Start: 09-18-2021 Investigation of transfusion reaction Dr. Joan Hughes Work Phone: Start: 09-18-2021 End: 09-18-2021 Legionella pneumophila antigen assay Dr. Joan Hughes Work Phone: Start: 09-18-2021 Respiratory microbia l culture Dr. Joan Hughes Work Phone: Start: 09-18-2021 Streptococcus pneumo niae Antigen (M Dr. Joan Hughes Work Phone: Start: 09-17-2021 Plain chest X-ray Dr. Bolivar Hughes Work Phone: Start: 09-17-2021 Plain chest X-ray Dr. Bolivar Hughes Work Phone: Start: 09-17-[address] Michael Hughes Work Phone: Start: 09-16-2021 Bacteria identified in Blood by Culture Dr. Joan Hughes Work Phone: Start: 04-09-2021 Assay of gammaglobul in iga igd igg igm each Willard Epperson MD Work Phone: Start: 04-09-2021 Hepatic function panel Willard Epperson MD Work Phone: Start: 03-10-2020 Mammography Hermila geronimo Start: 10-18-2019 MRI of brain and brain stem Willard Epperson Work Phone: Start: 01-21-2019 Mammography Joan billingsley MD Work Phone: Start: 01-14-2019 Adult depression scr eening assessment Joan Hughes MD Work Phone: Start: 10-01-2018 Colonoscopy Amrit ramirez Start: 09-28-2018 Creatinine [Mass/vol ume] in Blood Willard Epperson Work Phone: Bacteria identified in Blood by Culture Dr. Joan Hughes Work Phone: Investigation of transfusion reaction Dr. Joan Hughes Work Phone: Legionella pneumophi la antigen assay Dr. Joan Hughes Work Phone: Respiratory microbia l culture Dr. Joan Hughes Work Phone: Streptococcus pneumo niae Antigen (M Dr. Joan Hughes Work Phone: Urine culture Dr. Joan billingsley Work Phone: Urine culture Dr. Joan billingsley Work Phone: Plan of Treatment Date Care Activity Detail Author Start: 10-01-2028 Screening for malignant neoplasm of colon [facility] Start: 10-02-2023 Colonoscopy COLONOSCOPY [facility] Start: 10-02-2023 COLORECTAL CANCER SCREENING COLORECTAL CANCER SCREENING [facility] Start: 02-08-2022 Tetanus vaccination [facility] Start: 02-08-2022 Urine microalbumin profile DTAP,TDAP,TD (2 - Td or Tdap) [facility] Start: 02-03-2022 Influenza vaccination [facility] Start: 09-28-2021 Patient discharge [facility] Work Phone: Start: 09-28-2021 End: 09-28-2021 ambulatory [facility] Start: 09-28-2021 End: 09-28-2021 Patient encounter procedure [facility] Start: 09-27-2021 End: 09-27-2021 Patient encounter procedure [facility] Start: 09-21-2021 Following clinical pathway protocol [facility] Work Phone: Start: 09-21-2021 [facility] Work Phone: Start: 09-20-2021 Care planning and problem solving actions [facility] Work Phone: Start: 09-18-2021 Catheterization of vein [facility] Work Phone: Start: 09-18-2021 Consultation [facility] Work Phone: Start: 09-18-2021 Incentive spirometry [facility] Work Phone: Start: 09-18-2021 Insertion of catheter into peripheral vein [facility] Work Phone: Start: 09-18-2021 Measuring intake and output [facility] Work Phone: Start: 09-18-2021 Oxygen therapy [facility] Work Phone: Start: 09-18-2021 Physiotherapy of chest [facility] Work Phone: Start: 09-18-2021 Providing care according to standard [facility] Work Phone: Start: 09-18-2021 Vital signs measurements [facility] Work Phone: Start: 09-18-2021 [facility] Work Phone: Start: 09-18-2021 Care planning and problem solving actions [facility] Work Phone: Start: 09-18-2021 Continuous positive airway pressure ventilation treatment [facility] Work Phone: Start: 09-17-2021 Speech therapy assessment [facility] Work Phone: Start: 09-17-2021 [facility] Work Phone: Start: 09-16-2021 Ambulation without limitation [facility] Work Phone: Start: 09-16-2021 Assessment of risk of venous thromboembolism [facility] Work Phone: Start: 09-16-2021 Insertion of catheter into peripheral vein [facility] Work Phone: Start: 09-16-2021 Providing care according to standard [facility] Work Phone: Start: 09-16-2021 Referral to occupational therapist [facility] Work Phone: Start: 09-16-2021 Referral to service [facility] Work Phone: Start: 09-16-2021 [facility] Work Phone: Start: 09-16-2021 Following clinical pathway protocol [facility] Work Phone: Start: 09-16-2021 Admission procedure [facility] Work Phone: Start: 09-16-2021 Bacteria identified in Blood by Culture Blood Culture [facility] Work Phone: Start: 09-16-2021 Bacteria identified in Urine by Culture Urine Culture [facility] Work Phone: Start: 04-23-2021 COVID-19 Vaccine (3 - Booster for Pfizer series) COVID-19 Vaccine (3 - Booster for Pfizer series) [facility] Start: 04-16-2021 End: 04-16-2021 ambulatory 04/16/2021 Infusion/Injection Infusion Therapy [facility] Start: 04-09-2021 End: 04-09-2021 ambulatory 04/09/2021 Infusion/Injection Infusion Therapy [facility] Start: 04-09-2021 End: 04-09-2021 Patient encounter procedure 04/09/2021 Office Visit Neurology Willard Epperson MD [address] [place] [address] [phone] [facility] Start: 03-23-2021 COVID-19 Vaccine (3 - Booster for Pfizer series) COVID-19 Vaccine (3 - Booster for Pfizer series) [facility] Start: 03-10-2021 Screening for malignant neoplasm of breast Mammogram [facility] Start: 03-10-2021 Screening mammography Mammogram [facility] Start: 03-05-2021 End: 10-19-2021 MR Brain With And Without Contrast MR Brain With And Without Contrast Imaging Routine Multiple sclerosis, primary progressive (HCC) Expected: 03/05/2021, Expires: 10/19/2021 [facility] Comment on above: Expected: 03/05/2021, Expires: 2 Start: 03-05-2021 End: 10-19-2021 MRI of cervical spine MR Cervical Spine With And Without Contrast Imaging Routine Multiple sclerosis, primary progressive (HCC) Expected: 03/05/2021, Expires: 10/19/2021 [facility] Comment on above: Expected: 03/05/2021, Expires: 2 Start: 03-05-2021 End: 10-19-2021 MRI of thoracic spine MR Thoracic Spine With And Without Contrast Imaging Routine Multiple sclerosis, primary progressive (HCC) Expected: 03/05/2021, Expires: 10/19/2021 [facility] Comment on above: Expected: 03/05/2021, Expires: 2 Start: 02-03-2021 Influenza vaccination [facility] Start: 12-16-2020 COVID-19 Vaccine (3 - Booster for Pfizer series) COVID-19 Vaccine (3 - Booster for Pfizer series) [facility] Start: 10-19-2020 COVID-19 Vaccine (2 - Pfizer 2-dose series) COVID-19 Vaccine (2 - Pfizer 2-dose series) [facility] Start: 10-16-2020 End: 10-16-2020 Infusion/Injection [facility] Start: 04-17-2020 End: 04-17-2020 Office Visit 04/17/2020 Office Visit Neurology Willard Epperson MD [address] [id number] [phone] [facility] Start: 04-17-2020 End: 04-17-2020 Infusion/Injection [facility] Start: 02-04-2020 Influenza vaccination given [facility] Start: 01-22-2020 Mammography MAMMOGRAM [facility] Start: 01-15-2020 Adult depression screening assessment DEPRESSION SCREENING [facility] Start: 10-18-2019 End: 10-18-2019 Office Visit 10/18/2019 Office Visit Neurology Willard Epperson MD [address] [address] [address] [phone] [facility], Neuro[facility] Start: 10-18-2019 End: 10-18-2019 Infusion/Injection [facility] Start: 10-18-2019 End: 10-18-2019 Appointment 10/18/2019 Appointment Radiology Willard Epperson MD [address] [facility] [address] [address] [phone] [facility] MRI Start: 04-12-2019 End: 04-12-2019 Infusion/Injection 04/12/2019 Infusion/Injection Infusion Therapy [facility] Start: 03-11-2019 End: 03-11-2019 Office Visit 03/11/2019 Office Visit Neurology Willard Epperson MD [address] [facility] [address] [address] [phone] [facility], Neuroscience Start: 02-04-2019 DIABETES SCREEN DIABETES SCREEN [facility] Start: 02-03-2019 Influenza vaccination given [facility] Start: 10-12-2018 End: 10-12-2018 Infusion/Injection 10/12/2018 Infusion/Injection Infusion Therapy Willard Epperson MD [address] [facility] [address] [address] [phone] [facility] Start: 04-13-2018 End: 04-13-2018 Ambulatory 04/13/2018 Office Visit Neurology Willard Epperson MD [address] [facility] [address] [address] [phone] [facility] Start: 04-13-2018 End: 04-13-2018 Ambulatory 04/13/2018 Infusion/Injection Infusion Therapy [facility] Start: 02-03-2018 Influenza vaccination [facility] Start: 02-03-2018 Influenza vaccination given SEQUENTIAL INFLUENZA VACCINE (#1) [facility] Start: 01-19-2018 End: 01-19-2018 Ambulatory 01/19/2018 Office Visit Neurology Willard Epperson MD [address] [address] [phone] [facility] Start: 10-11-2017 Ambulatory 10/11/2017 Infusion/Injection Infusion Therapy [facility] Start: 08-25-2017 Ambulatory 08/25/2017 Office Visit Neurology Willard Epperson MD [address] [address] [phone] [facility] Start: 08-17-2017 Ambulatory 08/17/2017 Appointment Radiology Willard Epperson MD [address] [address] [phone] [facility] MRI Start: 05-25-2017 Ambulatory 05/25/2017 Office Visit Neurology Willard Epperson MD [address] [facility] [address] [address] [phone] [facility] Start: 05-04-2017 Ambulatory 05/04/2017 Infusion/Injection Infusion Therapy [facility] Start: 02-13-2017 Ambulatory 02/13/2017 Office Visit Neurology Willard Epperson MD [address] [facility] [address] [address] [phone] [facility] Start: 02-03-2017 Influenza vaccination SEQUENTIAL INFLUENZA VACCINE (#1) [facility] Work Phone: Start: 02-03-2017 SEQUENTIAL INFLUENZA VACCINE (#1) SEQUENTIAL INFLUENZA VACCINE (#1) [facility] Work Phone: Start: 03-31-2016 HPV TESTING HPV TESTING [facility] Start: 03-31-2016 PAP TESTING PAP TESTING [facility] Start: 02-09-2016 LIPID SCREEN LIPID SCREEN [facility] Start: 02-21-2008 Administration of herpes zoster vaccine Zoster Vaccines (1 of 2) [facility] Start: 02-21-2008 Screening for malignant neoplasm of colon [facility] Start: 02-21-2008 SHINGRIX VACCINE (1 of 2) SHINGRIX VACCINE (1 of 2) [facility] Start: 2003 COLOGUARD (FIT-DNA) COLOGUARD (FIT-DNA) [facility] Start: [address] COLONOGRAPHY [facility] Start: 2003 FECAL OCCULT BLOOD FECAL OCCULT BLOOD [facility] Start: 2003 SIGMOIDOSCOPY SIGMOIDOSCOPY [facility] Start: 02-21-1976 HEPATITIS C SCREENING HEPATITIS C SCREENING [facility] Start: 02-21-1976 HIV SCREENING HIV SCREENING [facility] Start: 1974 COVID-19 Vaccine (1 of 2) COVID-19 Vaccine (1 of 2) [facility] Start: 1974 COVID-19 Vaccine (1) COVID-19 Vaccine (1) [facility] Start: 1970 Adolescent depression screening assessment Depression Screening (PHQ9) [facility] Start: 1970 Depression screening using PHQ-9 (Patient Health Questionnaire 9) score [facility] Start: 1961 History and physical examination, annual for health maintenance Wellness Visit [facility] Start: 1958 Protein mass conc Mammogram [facility] Start: 1958 Screening for malignant neoplasm of colon [facility] Start: 1958 Screening mammography Mammogram [facility] Start: 1958 Colonoscopy COLONOSCOPY [facility] Work Phone: Start: 1958 Cytopathology procedure, preparation of smear, genital source PAP SMEAR [facility] [place] Work Phone: Start: 1960 End: 1958 Screening colonoscopy COLONOSCOPY [facility] Work Phone: Start: 1960 End: 1958 Screening for malignant neoplasm of cervix PAP SMEAR [facility] Start: 1958 TETANUS EVERY 10 YR TETANUS EVERY 10 YR [facility] Work Phone: Start: 1960 End: 1958 Tetanus vaccination TETANUS EVERY 10 YR [facility] Work Phone: End: 04-17-2021 Cobalamin (Vitamin B12) [Mass/Vol] Vitamin B12 Lab Routine Fatigue, unspecified type 1 Occurrences starting 04/17/2020 until 04/17/2021 [facility] Comment on above: 1 Occurrences starting 04/17/2020 until 04/17/2021 End: 04-17-2021 Complete blood count with white cell differential, manual CBC and Differential Lab Routine Multiple sclerosis, primary progressive (HCC) 1 Occurrences starting 04/17/2020 until 04/17/2021 [facility] Comment on above: 1 Occurrences starting 04/17/2020 until 04/17/2021 End: 10-02-2019 Complete blood count with white cell differential, manual CBC and Differential Routine Therapeutic drug monitoring 1 Occurrences starting 10/01/2018 until 10/02/2019 [facility] Comment on above: 1 Occurrences starting 10/01/2018 until 10/02/2019 End: 10-16-2021 Complete blood count with white cell differential, manual CBC and Differential Lab Routine Multiple sclerosis, primary progressive (HCC) 1 Occurrences starting 10/16/2020 until 10/16/2021 [facility] Comment on above: 1 Occurrences starting 10/16/2020 until 10/16/2021 End: 04-17-2021 Comprehensive metabolic 2000 panel Comprehensive Metabolic Panel Lab Routine Multiple sclerosis, primary progressive (HCC) 1 Occurrences starting 04/17/2020 until 04/17/2021 [facility] Comment on above: 1 Occurrences starting 04/17/2020 until 04/17/2021 End: 10-02-2019 Comprehensive metabolic 2000 panel Comprehensive Metabolic Panel Routine Therapeutic drug monitoring 1 Occurrences starting 10/01/2018 until 10/02/2019 [facility] Comment on above: 1 Occurrences starting 10/01/2018 until 10/02/2019 End: 05-25-2018 Comprehensive metabolic panel [AGGREGATE] Comprehensive Metabolic Panel Routine Multiple sclerosis (HCC) 1 Occurrences starting 05/25/2017 until 05/25/2018 [facility] Work Phone: Comprehensive metabo lic panel [AGGREGATE] Comprehensive Metabolic Panel Routine Multiple sclerosis (HCC) 05/25/2017 10:22 AM EST [facility] Work Phone: End: 10-16-2021 Hepatic function 2000 panel - Serum or Plasma Hepatic Function Panel Lab Routine Multiple sclerosis, primary progressive (HCC) 1 Occurrences starting 10/16/2020 until 10/16/2021 [facility] Comment on above: 1 Occurrences starting 10/16/2020 until 10/16/2021 End: 04-17-2021 Immunoglobulin measurement IgG, IgA, IgM Immunoglobulins Lab Routine Multiple sclerosis, primary progressive (HCC) 1 Occurrences starting 04/17/2020 until 04/17/2021 [facility] Comment on above: 1 Occurrences starting 04/17/2020 until 04/17/2021 End: 10-16-2021 Immunoglobulin measurement IgG, IgA, IgM Immunoglobulins Lab Routine Multiple sclerosis, primary progressive (HCC) 1 Occurrences starting 10/16/2020 until 10/16/2021 [facility] Comment on above: 1 Occurrences starting 10/16/2020 until 10/16/2021 End: 09-28-2018 MR Brain With And Without Contrast MR Brain With And Without Contrast Routine Multiple sclerosis (HCC) Once for 1 Occurrences starting 09/28/2018 until 09/28/2018 [facility] Comment on above: Once for 1 Occurrences starting 09/29/19 19 until 09/28/2018 MR Brain With And Without Contrast MR Brain With And Without Contrast Routine Multiple sclerosis (HCC) 09/28/2018 1:06 PM EDT [facility] End: 08-25-2018 OCT, Optic Nerve - OU - Both Eyes OCT, Optic Nerve - OU - Both Eyes Routine Multiple sclerosis (HCC) 1 Occurrences starting 08/25/2017 until 08/25/2018 [facility] Patient referral [facility] Work Phone: End: 12-31-2022 Screening mammography bi 2-view breast inc cad HUBERT SCREENING Radiology Routine Encounter for screening mammogram for breast cancer 1 Occurrences starting 12/01/2021 until 12/31/2022 [facility] Work Phone: Comment on above: 1 Occurrences starting 12/01/2021 until 12/31/2022 End: 04-17-2021 TSH Qn TSH with Reflex Free T4 Lab Routine Fatigue, unspecified type 1 Occurrences starting 04/17/2020 until 04/17/2021 [facility] Comment on above: 1 Occurrences starting 04/17/2020 until 04/17/2021 End: 04-17-2021 Vitamin D, 25-hydroxy measurement Vitamin D, Total, 25-OH Lab Routine Multiple sclerosis, primary progressive (HCC) 1 Occurrences starting 04/17/2020 until 04/17/2021 [facility] Comment on above: 1 Occurrences starting 04/17/2020 until 04/17/2021 End: 10-01-2019 Vitamin D, 25-hydroxy measurement Vitamin D, Total, 25-OH Routine Therapeutic drug monitoring 1 Occurrences starting 10/01/2018 until 10/01/2019 [facility] Comment on above: 1 Occurrences starting 10/01/2018 until 10/01/2019 End: 05-25-2018 Vitamin D, Total, 25-OH Vitamin D, Total, 25-OH Routine Multiple sclerosis (HCC) 1 Occurrences starting 05/25/2017 until 05/25/2018 [facility] Work Phone: Vitamin D, Total, 25-OH Vitamin D, Total, 25-OH Routine Multiple sclerosis (HCC) 05/25/2017 10:22 AM EST [facility] Work Phone: Immunizations Immunization Date Immunization Notes Care Provider Fa cili 10-21-2020 COVID-19 vaccine, ag e 12+ yr (PFIZER-BIONTECH - PURPLE TOP) Joan Hughes MD Work Phone: [facility] Work Phone: 09-28-2020 COVID-19 vaccine, ag e 12+ yr (PFIZER-BIONTECH - PURPLE TOP) Joan Hughes MD Work Phone: [facility] Work Phone: 02-09-2017 AFLURIA QUAD 18, PF, syringe; Translations: [Afluria Quad (Pf) 60 McG/0.5 Ml Intramuscular Syringe] Jeanne Sulaiman [facility] Work Phone: 02-08-2016 influenza, seasonal, injectable Joan Hughes MD Work Phone: [facility] 02-22-2013 influenza virus vaccine, unspecified formulation Joan Hughes MD Work Phone: [facility] 03-03-2012 influenza virus vaccine, unspecified formulation Joan Hughes MD Work Phone: [facility] 02-09-2012 tetanus toxoid, redu deniz diphtheria toxoid, and acellular pertussis vaccine, adsorbed Joan Hughes MD Work Phone: [facility] 04-07-2010 pneumococcal polysaccharide vaccine, 23 valent Joan Hughes MD Work Phone: [facility] 03-25-2008 influenza virus vaccine, unspecified formulation Joan Hughes MD Work Phone: [facility] 04-03-2007 influenza virus vaccine, unspecified formulation Joan Hughes MD Work Phone: [facility] Work Phone: 04-17-2006 influenza virus vaccine, unspecified formulation Jaon Hughes MD Work Phone: [facility] 05-17-2005 influenza virus vaccine, unspecified formulation Joan Hughes MD Work Phone: [facility] Work Phone: Payers Date Payer Category Payer Self-pay [id number] 2023 Unknown [id number] 2013 Unknown [id number] 2. [id number] 2013 Unknown [id number] 2. 16.840.1.862784.3.249.13 2013 Unknown [id number] 1.2.840.559666.1.13.385.2.7.3.670424.315 2013 Unknown 1.2.840.282782. 1.13.385.2.7.3.510426.315 1958 Unknown [id number] 2.16. 840.1.543524.3.579.2.900 1958 Unknown [id number] 2.16. 840.1.518694.3.579.2.900 1958 Unknown [id number] 2.16. 840.1.973295.3.579.2.900 1958 Unknown [id number] 2.16. 840.1.225292.3.579.2.900 1958 Unknown [id number] 2.16. 840.1.759500.3.579.2.900 1958 Unknown [id number] 2.16. 840.1.708334.3.579.2.900 1958 Unknown [id number] 2.16. 840.1.275194.3.579.2.900 1958 Unknown [id number] 2.16. 840.1.440159.3.579.2.900 1958 Unknown [id number] 2.16. 840.1.796132.3.579.2.900 1958 Unknown [id number] 2.16. 840.1.161901.3.579.2.903 1958 Unknown [id number] 2.16. 840.1.463456.3.579.2.903 Medicare MEDICARE PART A B [id number] Unknown [id number] 2.16.8 40.1.313753.3.579.2.462 Unknown [id number] 2.16.8 40.1.016950.3.579.2.462 Unknown [id number] 2.16.8 40.1.478077.3.579.2.462 Unknown [id number] 2.16.8 40.1.237360.3.579.2.462 Unknown [id number] 2.16.8 40.1.149255.3.579.2.462 Unknown [id number] 2.16.8 40.1.494834.3.579.2.462 Unknown [id number] 2.16.8 40.1.758826.3.579.2.462 Unknown [id number] 2.16.8 40.1.515095.3.579.2.462 Unknown [id number] 2.16.8 40.1.426721.3.579.2.462 Unknown [id number] 2.16.8 40.1.931353.3.579.2.462 Unknown [id number] 2.16.8 40.1.192682.3.579.2.462 Unknown [id number] 2.16.8 40.1.216396.3.579.2.462 Unknown [id number] 2.16.8 40.1.125996.3.579.2.462 Unknown [id number] 2.16.8 40.1.070432.3.579.2.462 Unknown [id number] 2.16.8 40.1.543179.3.579.2.462 Unknown [id number] 2.16.8 40.1.957864.3.579.2.462 Unknown [id number] 2.16.8 40.1.146258.3.579.2.462 Unknown [id number] 2.16.8 40.1.207744.3.579.2.462 Unknown [id number] 2.16.8 40.1.478036.3.579.2.462 Unknown [id number] 2.16.8 40.1.617720.3.579.2.462 Unknown [id number] 2.16.8 40.1.816891.3.579.2.462 Unknown [id number] 2.16.8 40.1.087253.3.579.2.462 Unknown [id number] 2.16.8 40.1.212918.3.579.2.462 Unknown [id number] 2.16.8 40.1.027469.3.579.2.462 Unknown [id number] 2.16.8 40.1.298123.3.579.2.462 Unknown [id number] 2.16.8 40.1.106606.3.579.2.462 Unknown [id number] 2.16.8 40.1.142881.3.579.2.462 Unknown [id number] 2.16.8 40.1.226247.3.579.2.462 Unknown [id number] 2.16.8 40.1.197000.3.579.2.462 Unknown [id number] 2.16.8 40.1.433609.3.579.2.462 Unknown [id number] 2.16.8 40.1.199940.3.579.2.462 Unknown [id number] 2.16.8 40.1.706931.3.579.2.462 Unknown [id number] 2.16.8 40.1.643675.3.579.2.462 Unknown [id number] 2.16.8 40.1.952300.3.579.2.462 Unknown [id number] 2.16.8 40.1.393971.3.579.2.462 Unknown [id number] 2.16.8 40.1.848888.3.579.2.462 Social History Date Type Detail Facility Start: 10-11-2017 End: 07-05-2022 Tobacco smoking status NHIS Never smoker [facility] Work Phone: Start: 1960 Sex Assigned At Not on file O [facility] Work Phone: Start: 04-16-2019 End: 07-14-2021 Alcohol intake Current non-drinker of alcohol (finding) [facility] Exposure to SARS-CoV -2 (event) Not sure [facility] Start: 04-13-2017 End: 10-18-2019 Tobacco use and exposure Never used [facility] Start: 09-16-2021 End: 07-05-2022 Tobacco smoking status ARIS Unknown if ever smoked [facility] Start: 01-25-2020 Alone [facility] Start: 1960 Sex Assigned At Female [facility] Start: 09-05-2024 End: 09-06-2024 Sex Female (finding) [facility] Goals Date Patient Goal Desired Activity /State Functional Status Date Assessment Result Facility 09-28-2021 Functional status Patient Activity Chair [facility] Work Phone: 09-28-2021 Functional status Activity Abili ty With Assist of 2 [facility] Work Phone: 09-28-2021 Functional status Rolling Walker [facility] Work Phone: Mental Status Date Assessment Result Facility 09-28-2021 Cognitive function [facility]: 09-16-2021 Cognitive function Level Of Cons ciousness Awake;Alert;Appropriate;Follow s Commands [facility] Work Phone: Clinical Notes 10-16-2020 to 11-09-2022 Willard Epperson MD - 06/23/2022 11:31 AM ESTPatient InstructionsPatient InstructionsDaniben Epperson MD - 04/09/2021 8:00 AM EDTSWillard shaver MD - 10/29/2020 10:03 AM EDT Note Date & Type Note Facility 11-09-2022 Note Patient Outreach (IN TMMN) BRITNEY PERAZA ([id number]) 1960 F TXT Date Time Provider Department 11/09/22 JOAN HUGHES During your visit today, we recorded the [...] for screening mammogram for breast cancer [Z12.31] Order(s):[facility] SCREENING [[id number]] Order #: [id number] FUTURE Prescriptions as of 11/14/2022 - atenolol [...] sclerosis) (HCC) [G35] 01/14/2019 Encounter Status:Closed by KODAK, PRODUSER on 11/14/22 [facility] 06-23-2022 History of Present illness Narrative Left voicemail message with patient. Was not sure if she wanted to continue to follow-up in clinic. Would be happy to see her back, even if she is no longer on disease modifying therapy to work on symptomatic management. Provided with the number for the front end engineer if she is interested in rescheduling. documented in this encounter [facility] 12-01-2021 Note Patient Outreach (IN TMMN) BRITNEY PERAZA ([id number]) 1960 F TXT Date Time Provider Department 12/01/21 JOAN HUGHES During your visit today, we recorded the [...] for screening mammogram for breast cancer [Z12.31] Order(s):[facility] SCREENING [[id number]] Order #: [id number] FUTURE Prescriptions as of 12/06/2021 - atenolol [...] sclerosis) (HCC) [G35] 01/14/2019 Encounter Status:Closed by Quote Roller, PRODUSER on 12/06/21 [facility] 04-09-2021 Instructions Zahra Pratt RN - 04/09/2021 [...] the medicines you take, including prescription and ofhp-nlq-asylxjo medicines. vitamins, and herbal supplements. How will [...] may report side effects to FDA at 6-370-WFG-8099. General information about the safe and effective [...] sodium acetate trihydrate, trehalose dihydrate. Manufactured by: [employer] A Member of the [employer], [address] [place] [address], [place] [address] [place] License No. [id number] For more information, go to www.[employer] or call . This Medication Guide has been approved by the U.S. Food and Drug Administration documented in this encounter [facility] 04-09-2021 Instructions Willard Epperson MD - 04/09/2021 8:16 AM EDT Central [id number]- [id number] documented in this encounter [facility] 04-09-2021 History of Present illness Narrative Images from the original note were not included. 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 I recommend continuing Vitamin D3 34178 IU once every other daily. Goal levels [...] me in 6 months. Willard Epperson MD [facility] Neuroimmunology/ Neuroinfectious Disease ([facility], and [place] [facility]) General Neurology ([place]) ([place]) [place] Address: [address] [place] [address], [address] [place], [place] [id number] [place] [address] Address [address] [facility], [address] [place] [address] Chief Complaint: Neuro-immunology clinic follow up INTERIM HISTORY Britney Peraza is here for follow up. Last was seen 10/23. Accompanied by her sister today. She has her infusion scheduled later this morning. No new symptoms to report, though her sister feels she minimizes worsening gait impairment. We had placed orders for [facility] in [facility]. They had been providing her with [...] Swelling Naproxen Sodium Hives, Itching and Swelling Ekjlzqckldhv-Fcl-Pzqcfjjl tachycardia tachycardia Penicillins Hives Sulfa (Sulfonamide Antibiotics) Hives Tetracycline Hives Current Outpatient Medications Medication Sig Dispense Refill acetaminophen (TYLENOL) 500 MG tablet Take 500 mg by mouth every 6 (six) hours as needed for pain. AFLURIA QUAD [id number], PF, syringe ADMINISTERED AT DDM 0 atenolol [...] documentation: 40 minutes. documented in this encounter [facility] 01-08-2021 Miscellaneous Notes Changed pharmacies documented in this encounter [facility] 10-29-2020 History of Present illness Narrative Are we able to fax this order for home health to [facility] in [facility]? Contact is: Toll Free [phone] Also, can we reschedule her Apr visit [...] her regarding this? documented in this encounter [facility] 10-16-2020 History of Present illness Narrative Images from the original note were not included. 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 Goal levels of Vitamin [...] proximity to her next infusion. Follow-up with nm April 2021. Willard Epperson MD [facility] Neuroimmunology/ Neuroinfectious Disease ([facility], and [place] [facility]) General Neurology ([place]) ([place] [place] Address: [address] [place] [address], [address] Address [address] [facility], [address] [place] [address] Chief Complaint: Neuro-immunology clinic follow up INTERIM [...] Swelling Naproxen Sodium Hives, Itching and Swelling Lzfpbjbsjqyb-Wxi-Jxpkhgfy tachycardia tachycardia Penicillins Hives Sulfa (Sulfonamide Antibiotics) Hives Tetracycline Hives Current Outpatient Medications Medication Sig Dispense Refill acetaminophen (TYLENOL) 500 MG tablet Take 500 mg by mouth every 6 (six) hours as needed for pain. AFLURIA QUAD [id number], PF, syringe ADMINISTERED AT DDM 0 atenolol [...] of T2/FLAIR signal abnormalities compatible with demyelination. NAFISA/ges Workstation ID: [id number] Results for orders placed [...] air cells are clear. Nasopharynx is normal. Practical Nursing Instructor spaces are normal. Orbital contents are normal. [...] or enhancing lesions. 3. Stable brain atrophy. DM/f Workstation ID: [id number] Total time spent, including over 50% or more spent face to face with the patient discussing the risk and benefits of any medications, reviewing available data and counseling patient on treatment plan was 30 minutes. The aforementioned impression & plan were discussed with the patient. documented in this encounter [facility] [place] 10-16-2020 Instructions LiangLata RN - 10/16/2020 12:37 [...] Pt voiced understanding. documented in this encounter [facility] [place] 10-16-2020 Instructions Lata Liang RN - 10/16/2020 [...] Pt voiced understanding. documented in this encounter [facility] [place] 10-16-2020 History of Present illness Narrative Labs obtained with insertion of PIV, which will be used for the infusion today. Specimens labeled per policy and taken to the lab in the [facility] [place] for [place]. documented in this encounter [facility] [place] 10-16-2020 History of Present illness Narrative Labs obtained with insertion of PIV, which will be used for the infusion today. Specimens labeled per policy and taken to the lab in the [facility] for processing. documented in this encounter [facility] [place] Evaluation note Diagnosis Multiple sclerosis, primary progressive (HCC)- Primary [facility] Multiple [facility], primary progressive (HCC)- Primary [facility] Diagnosis Multiple sclerosis, primary progressive (HCC)- Primary Vitamin D deficiency Paresis of lower extremity (HCC) Unspecified paralysis History of gait disorder [facility] Diagnosis Multiple sclerosis, primary progressive (HCC)- Primary [facility] Diagnosis Vitamin D deficiency [facility] [place] Diagnosis Multiple sclerosis, primary progressive (HCC)- Primary Multiple sclerosis (HCC) [facility] Multiple [facility], primary progressive (HCC)- Primary Vitamin D deficiency Spasticity Abnormal involuntary movements Ataxia Lack of coordination Cognitive impairment Unspecified persistent mental disorders due to conditions classified elsewhere [facility] Diagnosis Onset Date Resolution Status Acute cystitis acute Complicated urinary tract infection acute Infectious encephalopathy ac isha Severe sepsis acute [facility] Work Phone: Evaluation note* Diagnosis Onset Date Resolution Status Acute respiratory failure with hypoxia acute Complicated urinary tract infection acute COVID-19 acute Debility acute Lactic acidosis acute Sepsis acute [facility] Work Phone: Evaluation note* Diagnosis Onset Date Resolution Status Debility acute Acute respiratory failure with hypoxia resolved Complicated urinary tract infection resolved COVID-19 resolved Lactic acidosis resolved Sepsis resolved [facility] Work Phone: Evaluation note* Diagnosis Encounter for screening mammogram for breast cancer [facility] noteNo assessment information availableWFayette [facility] Work Phone: Evaluation note* Diagnosis Multiple sclerosis, primary progressive (HCC)- Primary [facility] Work Phone: Hospital Discharge instructionsWF[facility] Work Phone: Hospital Discharge instructionsWF[facility] Work Phone: Hospital Discharge instructionsWF[facility] Work Phone: Reason for referral (narrative)* Diagnostic Procedure Only (Routine) - Pending Review Specialty Diagnoses / Procedures Referred By Contac t Referred To Contact [facility] Diagnoses Encounter for screening mammogram for breast cancer Procedures HUBERT SCREENING SCREENING MAMMOGRAPHY BI 2-VIEW BREAST INC CAD Joan Hughes MD [address] [place] [address] [facility] [address] [place] [address] Referral ID Status Reason Start Date Expiration Date Visits Requested Visits Authorized [id number] Pending Review Auto-Generat ed Referral 12/01/2021 12/31/2022 1 1 [facility] for referral (narrative)No reason for referral information availableWFayette County Memorial Hospital Work Phone: Instructions * Patient Instructions - Kristina Riddle [...] would require purchasing a compounded version from [employer]. One source to purchase this is https://[employer]/product/9-[email or web address]-90-count/ Physical Therapy: 1. Recommend return to PT [...] Guide. documented in this encounter* Patient Instructions* Libia Steve RN - 04/17/2020 10:33 AM EST Indications [...] the medicines you take, including prescription and nrxs-fwb-qzkuxig medicines, vitamins_._and herbal supplements. _ _ _ [...] may report side effects to FDA at 9-557-YDL-8931. General Information about the safe and effective [...] sodium acetate trihydrate, trehalose dihydrate. Manufactured by: [employer] A Member of the [employer], [address] [place] [id number] [place]. License No.[id number] For more lnformation, go to www.[employer] or_call 0-111-279-38BZ. This Medication Guide has been approved by [...] And Without Contrast Willard Epperson MD [address] [address] Status Reason Specialty Diagnoses / Procedures Referred By Contact Referred To Contact Authorized Specialty Services Required/Patien t's Best Interest Physical Therapy Diagnoses Multiple sclerosis (HCC) Willard Epperson MD [address] [address] Status Reason Specialty Diagnoses / Procedures Referre d By Contact Referred To Contact Closed Radiology Diagnoses Multiple sclerosis (HCC) Procedures MR Brain Without Contrast Willard Epperson MD [address] [facility] [address] M[address] [place] [address] Status Reason Specialty Diagnoses / Procedures Referred By Contact Referred To Contact Closed Specialty Services Required/Patien t's Best Interest Computed Tomography Technician Diagnoses Multiple sclerosis (HCC) Willard Epperson MD [address] [facility] [address] [place] [address] Dory Velez LISW-S Status Reason Specialty Diagnoses / Procedures Referred By Contact Referred To Contact New Request Radiology Diagnoses Multiple sclerosis, primary progressive (HCC) Procedures MR Thoracic Spine With And Without Contrast Willard Epperson MD [address] [facility] [address] [place] [address] Status Reason Specialty Diagnoses / Procedures Referred By Contact Referred To Contact New Request Radiology Diagnoses Multiple sclerosis, primary progressive (HCC) Procedures MR Cervical Spine With And Without Contrast Willard Epperson MD [employer] [facility] [address] [place] [address] Status Reason Specialty Diagnoses / Procedures Referred By Contact Referred To Contact New Request Radiology Diagnoses Multiple sclerosis, primary progressive (HCC) Procedures MR Brain With And Without Contrast Willard Epperson MD [employer] [facility] [address] [place] [address] Status Reason Specialty Diagnoses / Procedures Referred By Contact Referred To Contact Authorized Specialty Services Required/Patie nt's Best Interest Home Health Services Diagnoses Multiple sclerosis, primary progressive (HCC) Willard Epperson MD [employer] [facility] [address] [place] [address] Specialty Diagnoses / Procedures Referred By Contac t Referred To Contact Computed Tomography Technician Diagnoses Multiple sclerosis, primary progressive ([place]CC[place] [address] [place] [address] Rd [address] [place] [address] Dory Velez, MAID HOUSEKEEPER-S Referral ID Status Reason Start Date Expiration Date V isits Requested Visits Authorized [id number] Closed Specialty Services Required/Oneida ent's Best Interest 04/09/2021 04/09/2022 1 1 Advance Directives No Advanced Directives Records FoundDocuments on File Type Date Recorded 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 Advance Directives and Livin g Will 04/12/2019 8:19 AM Documents on File Type Date Recorded 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 Advance Directives and Livin g Will 04/12/2019 8:19 AM Documents on File Type Date Recorded 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 Advance Directives and Livin g Will 10/18/2019 6:47 AM Documents on File Type Date Recorded 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 Advance Directives and Livin g Will 10/18/2019 6:47 AM Documents on File Type Date Recorded 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 Advance Directives and Livin g Will 04/17/2020 6:47 AM Documents on File Type Date Recorded 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 Advance Directives and Livin g Will 04/17/2020 6:47 AM Documents on File Type Date Recorded 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 Advance Directives and Livin g Will 10/16/2020 6:47 AM Documents on File Type Date Recorded 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 Advance Directives and Livin g Will 10/16/2020 6:47 AM Documents on File Type Date Recorded 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 Advance Directives and Livin g Will 04/09/2021 6:47 AM Documents on File Type Date Recorded 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 Advance Directives and Livin g Will 04/09/2021 6:47 AM Advance Directive Response Recorded Date/ Time Living Will Yes September 16, 2021 2:30pm Power of Social Science Research Assistant Yes September 16 2:30pm Advance Directive Response Recorded Date/ Time Name of Medical Power of Social Science Research Assistant jacque schwartz September 16, 2021 2:30pm Living Will Yes September 16, 2021 2:30pm Power of Social Science Research Assistant Yes September 16 2:30pm Advance Directive Response Recorded Date/ Time Living Will Yes September 16, 2021 1:30pm Power of Social Science Research Assistant Yes September 16 1:30pm Advance Directive Response Recorded Date/ Time Living Will Yes July 05 11:24am Power of Social Science Research Assistant Yes July 05, 2022 11:24am Advance Directive Response Recorded Date/ Time Living Will Yes July 05 12:24pm Power of Social Science Research Assistant Yes July 05, 2022 12:24pm History of Present Illness * Jeanne Hilario SENIOR MAINTENANCE MECHANIC - 02/13/2017 1:04 PM EDT [phone] order along with face [...] Epperson MD - 04/16/2019 8:02 PM EST [facility] 04/12/2019 IMPRESSIONS Britney Peraza [...] trials and in our experience here at [facility] [place], most infusion related reactions are mild to [...] visit. 3. Please sign up for the Invarium patient portal. [employer] provides assess to your medical record and test results, allows you to communicate with your care providers, and allows you to complete patient questionnaires prior to each clinic visit. 4. When your testing is completed, your MS care team will review all results and contact you if a finding requires follow up before your next visit. Otherwisee, we will discuss your test results ubma-by-ypfu at your next clinic visit. Many of your testing results, however, can be reviewed online through [employer]. MS Disease Summary Primary Neurological Diagnosis and Date Given PPMS- 2017 Age of Symptom Onset Approximately 2009 Treatment History DMT Start Date End Date Reason for DC Ocrelizumab 04/13/2017 Other physicians: Dr. Hughes (PCP) CHIEF COMPLAINT MS clinic follow up [...] hours as needed for pain. AFLURIA QUAD [id number], PF, syringe ADMINISTERED AT DDM 0 atenolol [...] Swelling Naproxen Sodium Hives, Itching and Swelling Qthkkkabfjte-Axp-Csfzxgrb tachycardia tachycardia Penicillins Hives Sulfa (Sulfonamide Antibiotics) [...] file Gets together: Not on file Attends pentecostalism service: Not on file Active member of club or organization: Not on file Attends meetings of clubs or organizations: Not on file Relationship status: Not on file Other Topics Concern Not on file Social History Narrative Not on file GENERAL PHYSICAL EXAMINATION Vital Signs: Blood pressure 124/78, pulse (!) 106, height 5' 4, weight 59 kg (130 lb), not currently [...] inaccurate or outdated, even if it looks real. If you have questions about things you read, we recommend you discuss them with your care provider. Below are list of links to MS educational sources online: [facility] (www.[facility].com/MS) Multiple Sclerosis Association of [place] (www.mymsaa.org) Multiple Sclerosis Foundation (www.msfocus.org) Can do Multiple Sclerosis ( www.mscando.org ) National Multiple Sclerosis Society (www.nationalmssociety.org) Twitter: @[facility] Facebook: [facility] Instagram: [employer] 5. For information on the [facility] [place] MS Center's clinical trial program contact Sari Bolden [facility]. 6. MS Groups take place at [facility] Education [facility] Resource [facility] at [facility]: [address] [place] [address]. Parking vouchers will be provided. Life with [...] the Monday of the month from 5:30-7pm. Caregiver/Highway Engineer Support Group: offers opportunities to connect with [...] experienced yoga practitioners. Pre- registration is required: [phone] 7. Education regarding disease modifying therapy discussed [...] Willard Epperson MD Neuroimmunology and Neuroinfectious Disease [facility] at [facility] and [place] Outpatient clinics ([facility] fax) [facility] Address: [address] [place] [address], [address] [place] [address] [place] Address [address] [facility], [address] [place] [address] documented in this encounter* Jeanne Hilario CMA - 04/18/2019 8:25 AM EST Faxed [facility] ([phone]) a physical therapy referral along with face sheet and Insurance card to call patient to schedule. documented in this encounter* Willard Epperson MD - 10/18/2019 10:43 AM EDT Telephone Visit Via Phone Call [facility] [address] [facility], NEUROSCIENCE [address] [facility] [phone] Telephone Visit [facility] 10/18/2019 Willard Epperson MD Provider Location: [facility] Patient Location Ob/Gyn Physician: None Patient Location: Patient's Home Patient: Britney Peraza Date of : 1960 (59 y.o. female) PCP: Joan Hughes MD I discussed risks, benefits and alternatives [...] there are inherent diagnostic limitations compared to wtxh-yj-flys evaluations. We elected toproceed with the telephone visit telemedicine consultation. HPI Today she is currently at the [facility] receiving her infusion. She has been [...] hours as needed for pain. AFLURIA QUAD [id number], PF, SYRINGE ADMINISTERED AT [facility] ATENOLOL (TENORMIN) 25 MG TABLET Take 25 [...] Continue with vitamin D 5000 units daily sfhr-wdy-iqjvuol Continue Ampyra 10 mg twice daily and [...] EDT [facility] ([phone]) to call and schedule in home visits [...] her biggest problem. Patient lives alone in [place], [place] and sister lives in [place]. Falls in past 6 months: > 6, [...] for PT related needs. * Dory Velez LISW-Jeri - 04/17/2020 11:56 AM ANT LAWS met with pt and her sister Jacque while pt was receiving her Ocrevus infusion. Introduced self and reviewed SW role. Pt presented as pleasant and easily engaged in conversation. Pt shared she doesnot like getting old. Validated her feelings - that with age can come the need for help. Pt has a [employer] dical alert system. She is receiving 2 hours of aide support, 2 times per week. Her bathroom was remodeled with a walk-in shower and a chair lift was installed to get pt safely from her garage into the home. It appears that pt would benefit from meals on wheels, as her aide is only allowed to slate picker groceries, so pt does not have easy access to food/shopping. Jacque lives in [place]. In reviewing past and present in-home supports, it appears that pt is enrolled in the PASSPORT program. She has contact info for Krystle. Encouraged calling Krystle to discuss an increase in services. Jacque stated she will do so. Asked if Jacque is officially pt's Health Care POA. Pt reported she completed a Health Care POA form and Living Will and Jacque is her POA. Jacque asked for a blankform in case they can not locate pt's copies and need to update the paperwork. SW will provide thistoday. Encouraged pt and/or Jacque to call on EUSEBIA if they are not able to connect with Krystle or they have future concerns/questions. There were agreeable. business card was provided. Resource info provided: [facility] ([facility]) at - Re: PASSPORT program. Advance Directives Packet * Willard Epperson MD - 04/17/2020 10:30 AM EST Patient Name: Britney Peraza : 1960 MR #: [id number] Other Physicians: Joan Hughes MD (Primary Care Physician) [facility] Follow-up Visit 04/17/2020 [...] me in 3 months. Willard Epperson MD [facility] Neurological Physicians NeuroImmunology/ Neuroinfectious Disease ([facility], and [place] outpatient clinics) General Neurology ([place] and [facility]) (all locations) ([facility]) [place] Address: [address] [place] [address], [address] [place], [place] [address] [place] [address] Address [address] [facility], [address] [place] [address] DISEASE SUMMARY Primary Neurological Diagnosis and Date Given PPMS- 2017 Age of Symptom Onset Approximately 2009 Treatment History DMT Start Date End Date Reason for DC Ocrelizumab 04/13/2017 Other physicians: Dr. 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 Confirms about 12 calls with life alert over the last year. Would benefit significantly [...] Swelling Naproxen Sodium Hives, Itching and Swelling Qsqyxebjrsze-Kud-Nadipjzt tachycardia tachycardia Penicillins Hives Sulfa (Sulfonamide Antibiotics) Hives Tetracycline Hives Current Outpatient Medications Medication Sig Dispense Refill acetaminophen (TYLENOL) 500 MG tablet Take 500 mg by mouth every 6 (six) hours as needed for pain. AFLURIA QUAD [id number], PF, syringe ADMINISTERED AT DDM 0 atenolol [...] Blood pressure 131/80, pulse 86, height 5' 4, weight 59 kg (130 lb), not currently [...] EST Faxed a physical therapy order to [facility] ([phone]) along with face sheet and Insurance card to call and schedule with patient. documented in this encounter* Willard Epperson MD - 09/28/2018 3:49 PM EDT [facility] [place] Multiple Sclerosis Center at [facility] Clinic Follow Up Note 09/28/2018 IMPRESSIONS Britney [...] trials and in our experience here at [facility] [place], most infusion related reactions are mild to [...] visit. 3. Please sign up for the Invarium patient portal. [employer] provides assess to your medical record and test results, allows you to communicate with your care providers, and allows you to complete patient questionnaires prior to each clinic visit. 4. When your testing is completed, your MS care team will review all results and contact you if a finding requires follow up before your next visit. Otherwisee, we will discuss your test results aefe-ij-vbze at your next clinic visit. Many of your testing results, however, can be reviewed online through [employer]. DISEASE SUMMARY Primary Neurological Diagnosis and Date Given PPMS- 2017 Age of Symptom Onset Approximately 2009 Treatment History DMT Start Date End Date Reason for DC Ocrelizumab 04/13/2017 Other physicians: Dr. Hughes (PCP) CHIEF COMPLAINT MS follow-up CONTEMPORARY HISTORY Since last seen, she was having some dizziness and lightheadedness with Tizanidine. She has since stopped and she feels better. Spasticity is really a minor complaint for her at this point. She is noticing benefit from Ampyra. This is also noticeable by her sister and gmedgdk-nd-nzm with regards toambulation. There have been no [...] hours as needed for pain. AFLURIA QUAD [id number], PF, syringe ADMINISTERED AT DDM 0 atenolol [...] Swelling Naproxen Sodium Hives, Itching and Swelling Sjgqtpvwpcae-Dav-Eobancgg tachycardia tachycardia Penicillins Hives Sulfa (Sulfonamide Antibiotics) [...] Blood pressure 145/80, pulse 89, height 5' 4, weight 59 kg (130 lb), not currently [...] Willard Epperson MD Neuroimmunology and Neuroinfectious Disease [facility] [place] Multiple Sclerosis Center at [facility] and [place] [facility] clinics ([place] fax) [place] Address: [address] [place] [address], [address] Address [facility], [address] [place] [address] documented in this encounter Summary Purpose Family History No Family History Records Found Relationship Condition Age at Onset Recorded Date/T seven Not Specified Hypertension Unknown Chief Complaint and Reason for Visit Chief Complaint UTI WITH SEPSIS Reason for Visit Acute cystitis Complicated urinary tract infection Infectious encephalopathy Severe sepsis Chief Complaint UTI WITH SEPSIS UTI WITH SEPSIS UTI WITH SEPSIS UTI WITH SEPSIS UTI WITH SEPSIS UTI WITH SEPSIS UTI WITH SEPSIS UTI WITH SEPSIS UTI WITH SEPSIS UTI WITH SEPSIS UTI WITH SEPSIS UTI WITH SEPSIS UTI WITH SEPSIS UTI WITH SEPSIS UTI WITH SEPSIS UTI WITH SEPSIS UTI WITH SEPSIS UTI WITH SEPSIS UTI WITH SEPSIS UTI WITH SEPSIS UTI WITH SEPSIS Reason for Visit Acute respiratory fa ilure with hypoxia Complicated urinary tract infection COVID-19 Debility Lactic acidosis Sepsis Chief Complaint UTI WITH SEPSIS UTI WITH SEPSIS UTI WITH SEPSIS UTI WITH SEPSIS UTI WITH SEPSIS UTI WITH SEPSIS UTI WITH SEPSIS UTI WITH SEPSIS UTI WITH SEPSIS UTI WITH SEPSIS UTI WITH SEPSIS UTI WITH SEPSIS UTI WITH SEPSIS UTI WITH SEPSIS UTI WITH SEPSIS UTI WITH SEPSIS UTI WITH SEPSIS UTI WITH SEPSIS UTI WITH SEPSIS UTI WITH SEPSIS UTI WITH SEPSIS UTI WITH SEPSIS ADMISSION EXAM SENIOR LIVING LABWORK LABWORK Reason for Visit Debility Acute respiratory failure with hypoxia Complicated urinary tract infection COVID-19 Lactic acidosis Sepsis Chief Complaint UTI WITH SEPSIS UTI WITH SEPSIS UTI WITH SEPSIS UTI WITH SEPSIS UTI WITH SEPSIS UTI WITH SEPSIS UTI WITH SEPSIS UTI WITH SEPSIS UTI WITH SEPSIS UTI WITH SEPSIS UTI WITH SEPSIS UTI WITH SEPSIS UTI WITH SEPSIS UTI WITH SEPSIS UTI WITH SEPSIS UTI WITH SEPSIS UTI WITH SEPSIS UTI WITH SEPSIS UTI WITH SEPSIS UTI WITH SEPSIS UTI WITH SEPSIS UTI WITH SEPSIS ADMISSION EXAM SENIOR LIVING LABWORK LABWORK LABWORK LAB WORK NEW SYMPTOMS/CONCERN ALTERED MENTAL STATUS Reason for Visit Debility Acute respiratory failure with hypoxia Complicated urinary tract infection COVID-19 Lactic acidosis Sepsis Chief Complaint UTI WITH SEPSIS UTI WITH SEPSIS UTI WITH SEPSIS UTI WITH SEPSIS UTI WITH SEPSIS UTI WITH SEPSIS UTI WITH SEPSIS UTI WITH SEPSIS UTI WITH SEPSIS UTI WITH SEPSIS UTI WITH SEPSIS UTI WITH SEPSIS UTI WITH SEPSIS UTI WITH SEPSIS UTI WITH SEPSIS UTI WITH SEPSIS UTI WITH SEPSIS UTI WITH SEPSIS UTI WITH SEPSIS UTI WITH SEPSIS UTI WITH SEPSIS UTI WITH SEPSIS ADMISSION EXAM SENIOR LIVING LABWORK LABWORK LABWORK LAB WORK NEW SYMPTOMS/CONCERN ALTERED MENTAL STATUS SENIOR LIVING LABWORK NEW SYMPTOMS/CONCERNS Reason for Visit Debility Acute respiratory failure with hypoxia Complicated urinary tract infection COVID-19 Lactic acidosis Sepsis Chief Complaint ADMISSION EXAM SENIOR LIVING LABWORK LABWORK LABWORK LAB WORK NEW SYMPTOMS/CONCERN ALTERED MENTAL STATUS SENIOR LIVING LABWORK NEW SYMPTOMS/CONCERNS SENIOR LIVING LABWORK SENIOR LIVING LAB WORK SENIOR LIVING LAB WORK Chief Complaint LABWORK LABWORK LAB WORK NEW SYMPTOMS/CONCERN ALTERED MENTAL STATUS SENIOR LIVING LABWORK NEW SYMPTOMS/CONCERNS SENIOR LIVING LABWORK SENIOR LIVING LAB WORK SENIOR LIVING LAB WORK SENIOR LIVING LABWORK Chief Complaint NEW SYMPTOMS/CONCERN ALTERED MENTAL STATUS SENIOR LIVING LABWORK NEW SYMPTOMS/CONCERNS SENIOR LIVING LABWORK SENIOR LIVING LAB WORK SENIOR LIVING LAB WORK SENIOR LIVING LABWORK LABWORK MONTHLY EXAM Chief Complaint NEW SYMPTOMS/CONCERN S SENIOR LIVING LABWORK SENIOR LIVING LAB WORK SENIOR LIVING LAB WORK SENIOR LIVING LABWORK LABWORK MONTHLY EXAM SENIOR LIVING LABWORK Chief Complaint SENIOR LIVING LABWORK SENIOR LIVING LAB WORK SENIOR LIVING LAB WORK SENIOR LIVING LABWORK LABWORK MONTHLY EXAM LABWORK SENIOR LIVING LABWORK Chief Complaint SENIOR LIVING LAB WOR K SENIOR LIVING LAB WORK SENIOR LIVING LABWORK LABWORK MONTHLY EXAM LABWORK SENIOR LIVING LABWORK SENIOR LIVING LABWORK ACUTE CARE NOTE Chief Complaint SENIOR LIVING LAB WOR K SENIOR LIVING LAB WORK SENIOR LIVING LABWORK LABWORK MONTHLY EXAM LABWORK SENIOR LIVING LABWORK SENIOR LIVING LABWORK SENIOR LIVING LABWORK ACUTE CARE NOTE ACUTE CARE Chief Complaint MONTHLY EXAM LABWORK SENIOR LIVING LABWORK SENIOR LIVING LABWORK SENIOR LIVING LABWORK ACUTE CARE NOTE ACUTE CARE SENIOR LIVING LABWORK SENIOR LIVING LAB WORK SENIOR LIVING LAB WORK SENIOR LIVING LAB WORK ACUTE CARE Chief Complaint LABWORK SENIOR LIVING LABWORK SENIOR LIVING LABWORK SENIOR LIVING LABWORK ACUTE CARE NOTE ACUTE CARE SENIOR LIVING LABWORK SENIOR LIVING LAB WORK SENIOR LIVING LAB WORK SENIOR LIVING LAB WORK SENIOR LIVING LAB WORK ACUTE CARE Chief Complaint LABWORK SENIOR LIVING LABWORK SENIOR LIVING LABWORK SENIOR LIVING LABWORK ACUTE CARE NOTE ACUTE CARE SENIOR LIVING LABWORK SENIOR LIVING LAB WORK SENIOR LIVING LAB WORK SENIOR LIVING LABWORK SENIOR LIVING LABWORK SENIOR LIVING LAB WORK SENIOR LIVING LAB WORK ACUTE CARE Chief Complaint SENIOR LIVING LABWORK SENIOR LIVING LABWORK ACUTE CARE NOTE ACUTE CARE SENIOR LIVING LABWORK SENIOR LIVING LAB WORK SENIOR LIVING LAB WORK SENIOR LIVING LABWORK SENIOR LIVING LABWORK SENIOR LIVING LAB WORK SENIOR LIVING LAB WORK ACUTE CARE SENIOR LIVING LABWORK MONTHLY NOTE SENIOR LIVING LABWORK ACUTE CARE Chief Complaint SENIOR LIVING LABWORK ACUTE CARE NOTE ACUTE CARE SENIOR LIVING LABWORK SENIOR LIVING LAB WORK SENIOR LIVING LAB WORK SENIOR LIVING LABWORK SENIOR LIVING LABWORK SENIOR LIVING LAB WORK SENIOR LIVING LAB WORK ACUTE CARE SENIOR LIVING LABWORK MONTHLY NOTE SENIOR LIVING LABWORK ACUTE CARE SENIOR LIVING LABWORK MONTHLY EXAM Chief Complaint SENIOR LIVING LAB WOR K SENIOR LIVING LABWORK SENIOR LIVING LABWORK SENIOR LIVING LAB WORK SENIOR LIVING LAB WORK ACUTE CARE SENIOR LIVING LABWORK MONTHLY NOTE SENIOR LIVING LABWORK ACUTE CARE SENIOR LIVING LABWORK MONTHLY EXAM SENIOR LIVING LAB WORK SENIOR LIVING LABWORK SENIOR LIVING LABWORK NEW CONCERN Chief Complaint SENIOR LIVING LAB WOR K SENIOR LIVING LABWORK SENIOR LIVING LABWORK SENIOR LIVING LAB WORK SENIOR LIVING LAB WORK ACUTE CARE SENIOR LIVING LABWORK MONTHLY NOTE SENIOR LIVING LABWORK ACUTE CARE SENIOR LIVING LABWORK MONTHLY EXAM SENIOR LIVING LAB WORK SENIOR LIVING LABWORK SENIOR LIVING LABWORK SENIOR LIVING LABWORK NEW CONCERN Chief Complaint SENIOR LIVING LABWORK SENIOR LIVING LABWORK SENIOR LIVING LAB WORK SENIOR LIVING LAB WORK ACUTE CARE SENIOR LIVING LABWORK MONTHLY NOTE SENIOR LIVING LABWORK ACUTE CARE SENIOR LIVING LABWORK MONTHLY EXAM SENIOR LIVING LAB WORK SENIOR LIVING LABWORK SENIOR LIVING LABWORK SENIOR LIVING LABWORK NEW CONCERN SENIOR LIVING LABWORK Chief Complaint SENIOR LIVING LABWORK MONTHLY NOTE SENIOR LIVING LABWORK ACUTE CARE SENIOR LIVING LABWORK MONTHLY EXAM SENIOR LIVING LAB WORK SENIOR LIVING LABWORK SENIOR LIVING LABWORK SENIOR LIVING LABWORK NEW CONCERN SENIOR LIVING LABWORK MONTHLY EXAM SENIOR LIVING LABWORK Chief Complaint MONTHLY NOTE SENIOR LIVING LABWORK ACUTE CARE SENIOR LIVING LABWORK MONTHLY EXAM SENIOR LIVING LAB WORK SENIOR LIVING LABWORK SENIOR LIVING LABWORK SENIOR LIVING LABWORK NEW CONCERN SENIOR LIVING LABWORK MONTHLY EXAM SENIOR LIVING LABWORK SENIOR LIVING LABWORK Chief Complaint SENIOR LIVING LABWORK SENIOR LIVING LABWORK MONTHLY NOTE SENIOR LIVING LABWORK MONTHLY EXAM SENIOR LIVING LABWORK SENIOR LIVING LAB WORK SENIOR LIVING LABWORK MOTNHLY NOTE SENIOR LIVING LABWORK Chief Complaint SENIOR LIVING LABWORK SENIOR LIVING LABWORK MONTHLY NOTE SENIOR LIVING LABWORK MONTHLY EXAM SENIOR LIVING LABWORK SENIOR LIVING LAB WORK SENIOR LIVING LABWORK MOTNHLY NOTE SENIOR LIVING LABWORK SENIOR LIVING LAB WORK Chief Complaint SENIOR LIVING LABWORK MONTHLY EXAM SENIOR LIVING LABWORK SENIOR LIVING LAB WORK SENIOR LIVING LABWORK MOTNHLY NOTE SENIOR LIVING LABWORK MONTHLY EXAM SENIOR LIVING LAB WORK SENIOR LIVING LABWORK LABWORK Chief Complaint MONTHLY EXAM SENIOR LIVING LABWORK SENIOR LIVING LAB WORK SENIOR LIVING LABWORK MOTNHLY NOTE SENIOR LIVING LABWORK MONTHLY EXAM SENIOR LIVING LAB WORK SENIOR LIVING LABWORK LABWORK SENIOR LIVING LAB WORK Chief Complaint SENIOR LIVING LABWORK LABWORK SENIOR LIVING LAB WORK SENIOR LIVING LABWORK SENIOR LIVING LABWORK MONTHLY EXAM MONTHLY NOTE MONTHLY EXAM SENIOR LIVING LAB WORK Chief Complaint MONTHLY NOTE MONTHLY EXAM MONTHLY EXAM - 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 DRIER OPERATOR SENIOR LIVING LAB WORK MONTHLY EXAM - MD SENIOR LIVING LAB WORK Chief Complaint MONTHLY EXAM - VACUUM DRIER OPERATOR SENIOR LIVING LAB WORK MONTHLY EXAM - MD SENIOR LIVING LAB WORK LABWORK Chief Complaint MONTHLY EXAM - VACUUM DRIER OPERATOR SENIOR LIVING LAB WORK MONTHLY EXAM - MD SENIOR LIVING LAB WORK MONTHLY NOTE -PA NEW CONCERN SENIOR LIVING LAB WORK LABWORK Chief Complaint MONTHLY EXAM - VACUUM DRIER OPERATOR SENIOR LIVING LAB WORK MONTHLY EXAM - MD SENIOR LIVING LAB WORK MONTHLY NOTE -PA NEW CONCERN SENIOR LIVING LAB WORK MONTHLY EXAM MD LABWORK SENIOR LIVING LAB WORK Chief Complaint SENIOR LIVING LAB WOR K MONTHLY NOTE -PA NEW CONCERN SENIOR LIVING LAB WORK MONTHLY EXAM MD LABWORK SENIOR LIVING LAB WORK SENIOR LIVING LAB WORK SENIOR LIVING LAB WORK Chief Complaint NEW CONCERN SENIOR LIVING LAB WORK MONTHLY EXAM MD LABWORK SENIOR LIVING LAB WORK SENIOR LIVING LAB WORK NEW CONCERN SENIOR LIVING LAB WORK MONTHLY EXAM Chief Complaint Admit Date MONTHLY NOTE June 07, 2024 4: 12pm SENIOR LIVING LAB WORK June 11, 2024 5:30am NEW CONCERN June 18, 2024 1 :49pm SENIOR LIVING LAB WORK July 09, 2024 5:00am MONTHLY EXAM July 09, 2024 5 :27pm SENIOR LIVING LAB WORK August 06, 2024 4: 00am SENIOR LIVING LAB WORK August 19, 2024 1 2:05pm Chief Complaint Admit Date MONTHLY NOTE June 07, 2024 4: 12pm SENIOR LIVING LAB WORK June 11, 2024 5:30am NEW CONCERN June 18, 2024 1 :49pm SENIOR LIVING LAB WORK July 09, 2024 5:00am MONTHLY EXAM July 09, 2024 5 :27pm NEW CONCERN August 05, 2024 4:07 pm SENIOR LIVING LAB WORK August 06, 2024 4: 00am SENIOR LIVING LAB WORK August 19, 2024 1 2:05pm NEW CONCERN August 19, 2024 4:4 9pm Additional Source Comments Addendum Note - Willard Eppersno MD - 01/23/2018 11:17 AM EDTQuick Note - Elif Augustin, TECHNOLOGIST - 10/18/2019 7:15 AM EDT Miscellaneous Notes (unrecog nized section and content) Addended by: WILLARD EPPERSON on: 01/23/2018 11:17 AM Modules accepted: Orders in this encounter This technologist ([id number]) and ([id number]) wore surgical masks/gloves during MRI exam. Patient wore surgical mask. documented in this encounter Reason for Visit (unrecogniz ed section and content) Reason Comments Multiple Sclerosis [facility] Specialty Diagnoses / Procedures Referred By Contac t Referred To Contact Infusion Therapy Diagnoses Multiple sclerosis, primary progressive (HCC) Procedures IA INJECTION, OCRELIZUMAB, 1 MG Willard Epperson MD [address] [place] [address] [facility]ly [facility] [address] [place] [address] Referral ID Status Reason Start Date Expiration Date V isits Requested Visits Authorized [id number] Pending Review 03/31/2021 05/30/2021 1 1 Status Reason Specialty Diagnoses / Procedures Referre d By Contact Referred To Contact Closed Radiology Diagnoses Multiple sclerosis (HCC) Procedures MR Brain With And Without Contrast Willard Epperson MD [address] [facility] [address] [place] [address] Reason Comments Multiple Sclerosis 6 month [facility] Status Reason Specialty Diagnoses / Procedures Referred By Contact Referred To Contact Closed Infusion Therapy Diagnoses Multiple sclerosis Procedures IA INJECTION, OCRELIZUMAB, 1 MG Willard Epperson MD [address] [place] [address] Formerly [facility] [address] [place] [address] Reason Comments Multiple Sclerosis Status Reason Specialty Diagnoses / Procedures Referred By Contact Referred To Contact Closed Infusion Therapy Diagnoses Multiple sclerosis, primary progressive (HCC) Procedures IA INJECTION, OCRELIZUMAB, 1 MG Willard Epperson MD [address] [place] [address] Formerly [facility] [address] [place] [address] Status Reason Specialty Diagnoses / Procedures Referre d By Contact Referred To Contact Closed Radiology Diagnoses Multiple sclerosis (HCC) Procedures MR Brain Without Contrast Willard Epperson MD [address] [place] [address] Status Reason Specialty Diagnoses / Procedures Referred By Contact Referred To Contact Authorized Infusion Therapy Diagnoses Multiple sclerosis [facility] 6 months Procedures IA INJECTION, OCRELIZUMAB, 1 MG CHEMO Willard Epperson MD [facility] [address] [place] [address] Formerly [facility] [address] [place] [address] Status Reason Specialty Diagnoses / Procedures Referred By Contact Referred To Contact Canceled Specialty Services Required/[facility] Services Diagnoses Multiple sclerosis, primary progressive (HCC) Willard Epperson MD [address] [place] [address] [place] [address] Status Reason Specialty Diagnoses / Procedures Referred By Contact Referred To Contact Authorized Infusion Therapy Diagnoses Multiple sclerosis, primary progressive (HCC) Procedures IA INJECTION, OCRELIZUMAB, 1 MG Willard Epperson MD [address] [place] [address] [facility]ly [facility] [address] [place] [address] Reason Comments Multiple Sclerosis [facility] 6mo, 2hr Status Reason Specialty Diagnoses / Procedures Referred By Contact Referred To Contact Closed Infusion Therapy Diagnoses Multiple sclerosis [facility] 6 months Procedures IA INJECTION, OCRELIZUMAB, 1 MG Willard Beach MD [address] [facility] [address] [place] [address] Formerly [facility] [address] [place] [address] Reason Onset Date Comments Medication Refill 01/08/2021 Reason Comments Multiple Sclerosis Care Teams (unrecognized sec tion and content) [employer] Relationship Specialty Start Date End Date Joan Hughes MD [address] [place] [id number] PCP - General Family Medicine 09/28/18 Inspector [employer] Relationship Specialty Start Date End Date Joan Hughes MD [address] [place] [id number] PCP - General Family Medicine 09/28/18 Inspector [employer] Relationship Specialty Start Date End Date Joan Hughes MD [address] [place] [address] [place] [id number] PCP - General Family Medicine 09/28/18 Inspector [employer] Relationship Specialty Start Date End Date Joan Hughes MD [address] [place] [id number] PCP - General Family Medicine 09/28/18 Inspector [employer] Relationship Specialty Start Date End Date Joan Hughes MD [address] [place] [id number] PCP - General Family Practice 05/11/16 Team Status: Active Member Role Status Dates Dr. Joan Hughes MD Family Provider Active Dr. Joan Hughes MD Primary Care Provider Active Team Status: Inactive Member Role Status Dates Dr. Joan Hughes MD Primary Care Provider Active Britney Worthington NP VACUUM DRIER OPERATOR-C Attending Provider Active Team Status: Inactive Member Role Status Dates Dr. Joan Hughes MD Primary Care Provider Active Asad Jamison MD Attending Provider Active Team Status: Inactive Member Role Status Dates Dr. Joan Hughes MD Primary Care Provider Active Breanne Ruiz MD Attending Provider Active Team Status: Active Member Role Status Dates Dr. Joan Hughes MD Primary Care Provider Active Breanne Ruiz MD Attending Provider Active Team Status: Active Member Role Status Dates Dr. Joan Hughes MD Primary Care Provider Active Asad Jamison MD Attending Provider Active Inspector [employer] Relationship Specialty Start Date End Date Joan Hughes MD [address] [facility] [address] [place] [address] PCP - General Family Medicine 09/28/18 Team Status: Inactive Member Role Status Dates Dr. Joan Hughes MD Primary Care Provider Active Dr. Breanne Ruiz MD Attending Provider Active Team Status: Inactive Member Role Status Dates Dr. Joan Hughes MD Primary Care Provider Active Breanne CULVER MD Attending Provider Active Team Status: Active Member Role Status Dates Dr. Joan Hughes MD Primary Care Provider Active Breanne CULVER MD Attending Provider Active Team Status: Inactive Member Role Status Dates Dr. Joan Hughes MD Primary Care Provider Active Asad CULVER MD Attending Provider Active Team Status: Active Member Role Status Dates Dr. Joan Hughes MD Primary Care Provider Active Asad CULVER MD Attending Provider Active Team Status: Active Member Role Status Dates Dr. Joan Hughes MD Primary Care Provider Active FRANCIS Ellison Attending Provider Active Team Status: Inactive Member Role Status Dates Dr. Joan Hughes MD Primary Care Provider Active Breanne CULVER MD Attending Provider, Referring Provider Active Team Status: Inactive Member Role Status Dates Dr. Joan Hughes MD Primary Care Provider Active Britney CULVER NP-Aysha Attending Provider Active Team Status: Inactive Member Role Status Dates Dr. Joan Hughes MD Primary Care Provider Active Aren ESPINOZA PA Attending Provider Active Team Status: Inactive Member Role Status Dates Dr. Joan Hughes MD Primary Care Provider Active WILLIAM ByrdC Attending Provider Active Team Status: Inactive Member Role Status Dates Dr. Joan Hughes MD Primary Care Provider Active Start: June 07, 2024 End: June 07, 2024 Britney Worthington NP, VACUUM DRIER OPERATOR-C Attending Provider Active Start: June 07, 2024 End: June 07, 2024 Team Status: Active Member Role Status Dates Dr. Joan Hughes MD Primary Care Provider Active Start: June 11, 2024 Breanne CULVER MD Attending Provider Active Start: June 11, 2024 Breanne CULVER MD Referring Provider Active Start: June 11, 2024 Team Status: Inactive Member Role Status Dates Dr. Joan Hughes MD Primary Care Provider Active Start: June 18, 2024 End: June 18, 2024 Britney Worthington NP, VACUUM DRIER OPERATOR-C Attending Provider Active Start: June 18, 2024 End: June 18, 2024 Team Status: Active Member Role Status Dates Dr. Joan Hughes MD Primary Care Provider Active Start: July 09, 2024 Breanne CULVER MD Attending Provider Active Start: July 09, 2024 Team Status: Inactive Member Role Status Dates Dr. Joan Hughes MD Primary Care Provider Active Start: July 09, 2024 End: July 09, 2024 Dr. Breanne Ruiz MD Attending Provider Active Start: July 09, 2024 End: July 09, 2024 Team Status: Active Member Role Status Dates Dr. Joan Hughes MD Primary Care Provider Active Start: August 06, 2024 Breanne CULVER MD Attending Provider Active Start: August 06, 2024 Breanne CULVER MD Referring Provider Active Start: August 06, 2024 Team Status: Inactive Member Role Status Dates Dr. Joan Hughes MD Primary Care Provider Active Start: August 19, 2024 End: August 19, 2024 Breanne CULVER MD Attending Provider Active Start: August 19, 2024 End: August 19, 2024 Breanne CULVER MD Referring Provider Active Start: August 19, 2024 End: August 19, 2024 Team Status: Active Member Role Status Dates Dr. Joan Hughes MD Primary Care Provider Active Start: September 03, 2024 Breanne CULVER MD Attending Provider Active Start: September 03, 2024 Team Status: Active Member Role Status Dates Dr. Joan Hughes MD Primary Care Provider Active Start: September 04, 2024 Breanne CULVER MD Attending Provider Active Start: September 04, 2024 Team Status: Inactive Member Role Status Dates Dr. Joan Hughes MD Primary Care Provider Active Start: August 05, 2024 End: August 05, 2024 Britney Worthington NP VACUUM DRIER OPERATOR-C Attending Provider Active Start: August 05, 2024 End: August 05, 2024 Team Status: Inactive Member Role Status Dates Dr. Joan Hughes MD Primary Care Provider Active Start: August 06, 2024 End: August 06, 2024 Breanne CULVER MD Attending Provider Active Start: August 06, 2024 End: August 06, 2024 Breanne CULVER MD Referring Provider Active Start: August 06, 2024 End: August 06, 2024 Team Status: Inactive Member Role Status Dates Dr. Joan Hughes MD Primary Care Provider Active Start: August 19, 2024 End: August 19, 2024 Britney Worthington NP VACUUM DRIER OPERATOR-C Attending Provider Active Start: August 19, 2024 End: August 19, 2024 INFORMATION SOURCE (unrecogn ized section and content) DATE CREATED AUTHOR 04/13/2021 [facility] DATE CREATED AUTHOR AUTHOR'S ORGANIZ ATION 01/15/2022 [facility] DATE CREATED AUTHOR AUTHOR'S ORGANIZ ATION 11/16/2022 [facility] DATE CREATED AUTHOR AUTHOR'S ORGANIZ ATION 10/31/2024 [facility] Goals (unrecognized section and content) Goals may be documented in a n alternate sectionGoals may be documented in an alternate sectionGoals may be documented in an alternate sectionGoals may be documented in an alternate sectionGoals may be documented in an alternate sectionGoals may be documented in an alternate sectionGoals may be documented in an alternate sectionGoals may be documented in an alternate sectionGoals may be documented in an alternate sectionGoals may be documented in an alternate sectionGoals may be documented in an alternate sectionGoals may be documented in an alternate sectionGoals may be documented in an alternate sectionGoals may be documented in an alternate sectionGoals may be documented in an alternate sectionGoals may be documented in an alternate sectionGoals may be documented in an alternate sectionGoals may be documented in an alternate sectionGoals may be documented in an alternate sectionGoals may be documented in an alternate sectionGoals may be documented in an alternate sectionGoals may be documented in an alternate sectionGoals may be documented in an alternate sectionGoals may be documented in an alternate sectionGoals may be documented in an alternate sectionGoals may be documented in an alternate sectionGoals may be documented in an alternate sectionGoals may be documented in an alternate sectionGoals may be documented in an alternate sectionGoals may be documented in an alternate sectionGoals may be documented in an alternate sectionGoals may be documented in an alternate sectionGoals may be documented in an alternate sectionGoals may be documented in an alternate sectionGoals may be documented in an alternate sectionGoals may be documented in an alternate sectionGoals may be documented in an alternate sectionGoals may be documented in an alternate sectionGoals may be documented in an alternate sectionGoals may be documented in an alternate sectionGoals may be documented in an alternate sectionGoals may be documented in an alternate section Source Comments (unrecognize d section and content) In the event this informatio n is protected by the Federal Confidentiality of Alcohol and Drug Abuse Patient Records regulations: The Federal rules restrict any use of the information to criminally investigate or prosecute any alcohol or drug abuse patient.[facility] FOR RECORDS PERTAINING TO PATIENTS WHO ARE [...] BE BASED ON THE PRIMARY CLINICAL RECORDS. [facility]. provides no warranty or guarantee of the accuracy or completeness of information in this document.
--- OUTSIDE RECORDS SUMMARY | 2024-11-05 03:28 | XMS RPT_ITS | CCD ---
Author Organization [facility] Care Team Providers Care Contract Negotiator Name Role Phone No, Physician Unavailable Unavailable Unavailable Unavailable Unavailable Joan Hughes Primary Care Provider [phone] Mercedes Physician Primary Care Provider Joan Antunez [...] Unavailable Dr. Joan Hughes Primary Care Provider Dr. Erick Jin Emergency Provider Dr. Faheem Lamb Admit Provider Dr. Faheem Lamb Attending Provider Dr. Faheem Lamb Other Provider Dr. Maile Apodaca Attending Provider Dr. Maile Apodaca Other Provider Dr. Maile Apodaca Referring Provider Dr. Jose Cruz Wright Attending Provider Dr. Jose Cruz Wright Other Provider Dr. Alan Terry Other Provider Jaylen GENERAL HARDWARE SALESPERSON, GENERAL HARDWARE SALESPERSON-C Meera Other Provider Dr. Rina Diaz Other Provider Dr. Alan Terry Attending Provider Dr. Rina Diaz Attending Provider Dr. Bijan Swain Attending Provider Dr. Bijan Swain Other Provider Dr. Anil Abreu Attending Provider Dr. Alek Ray Referring Provider Elin GENERAL HARDWARE SALESPERSON, GENERAL HARDWARE SALESPERSON-C Britney Attending Provider Joan Sher MD Primary Care Provider JOAN HUGHES Primary Care Unavailable WILLARD EPPERSON Attending JOAN Antunez Primary Care Unavailable WILLARD EPPERSON Attending Dr. Joan Antunez Primary Care Provider [phone] Dr. Joan Hughes Primary Care Provider Elin GENERAL HARDWARE SALESPERSON, GENERAL HARDWARE SALESPERSON-C Britney Attending Provider Dr. Joan Sher Primary Care Provider Elin GENERAL HARDWARE SALESPERSON, GENERAL HARDWARE SALESPERSON-C Britney Attending Provider Dr. Joan Sher Primary Care Provider Elin GENERAL HARDWARE SALESPERSON, GENERAL HARDWARE SALESPERSON-C Britney Attending Provider Dr. Joan Sher Primary Care Provider Elni GENERAL HARDWARE SALESPERSON, GENERAL HARDWARE SALESPERSON-C Britney Attending Provider Dr. Joan Sher Primary Care Provider Elin GENERAL HARDWARE SALESPERSON, GENERAL HARDWARE SALESPERSON-C Britney Attending Provider Joan Sher MD Primary Care Provider Dr. Breanne Ruiz Attending Provider [phone] Dr. Joan Hughes Primary Care Provider Elin GENERAL HARDWARE SALESPERSON, GENERAL HARDWARE SALESPERSON-C Britney Attending Provider Dr. Breanne Hensley Attending Provider [phone] Dr. Joan Hughes Primary Care Provider Elin GENERAL HARDWARE SALESPERSON, GENERAL HARDWARE SALESPERSON-C Britney Attending Provider Dr. Joan Sher Primary Care Provider Elin GENERAL HARDWARE SALESPERSON, GENERAL HARDWARE SALESPERSON-C Britney Attending Provider Dr. Breanne Hensley Attending Provider [phone] Dr. Joan Hughes Primary Care Provider Elin GENERAL HARDWARE SALESPERSON, GENERAL HARDWARE SALESPERSON-C Britney Attending Provider Dr. Joan Sher Primary Care Provider Elin GENERAL HARDWARE SALESPERSON, GENERAL HARDWARE SALESPERSON-C Britney Attending Provider MD Breanne Robbins Attending Provider Dr. Joan Sher Primary Care Provider Elin GENERAL HARDWARE SALESPERSON, GENERAL HARDWARE SALESPERSON-C Britney Attending Provider Dr. Breanne Ruiz Attending Provider [phone] Dr. Joan Hughes Primary Care Provider Elin GENERAL HARDWARE SALESPERSON, GENERAL HARDWARE SALESPERSON-C Britney Attending Provider OLGA Santacruz Attending Provider [phone] FRANCIS Romeo Attending Provider [phone] Dr. Joan Hughes Primary Care Provider Elin GENERAL HARDWARE SALESPERSON, GENERAL HARDWARE SALESPERSON-C Britney Attending Provider Dr. Breanne Ruiz Attending Provider [phone] OLGA Santacruz Attending Provider [phone] JERRELL Romeo-C Poornima Attending Provider [phone] Dr. Joan Hughes Primary Care Provider Dr. Breanne Ruiz Attending Provider [phone] Dr. Joan Hughes Primary Care Provider [phone] Elin GENERAL HARDWARE SALESPERSON, GENERAL HARDWARE SALESPERSON-C Britney Attending Provider Ellen BOO, Dr. Meza Primary Care Provider [phone] Elin GENERAL HARDWARE SALESPERSON-C, Britney Attending Provider Sara BOO, Breanne Attending [...] Unavailable [place], Joan Primary Care Unavailable [place] GENERAL HARDWARE SALESPERSON, Britney Attending Unavailable [place], Joan Primary Care Unavailable [place], Joan Primary Care Unavailable Oleghe, Efewongbe Attending Unavailable [place] GENERAL HARDWARE SALESPERSON, Britney Attending Unavailable [place], Joan Primary Care Unavailable [place] GENERAL HARDWARE SALESPERSON, Britney Attending Unavailable [place], Joan Primary Care Unavailable Oleghe OLS, Efewongbe Attending Unavailabl e [place], Joan Primary Care Unavailable Oleghe OLS, Efewongbe Attending Unavailabl e [place], Joan Primary Care Unavailable Oleghe, Efewongbe Attending Unavailable [place], Joan Primary Care Unavailable Oleghe OLS, Efewongbe Referring Unavailabl e Oleghe OLS, Efewongbe Attending Unavailabl e [place], Joan Primary Care Unavailable [place] GENERAL HARDWARE SALESPERSON, Britney Attending Unavailable [place], Joan Primary Care Unavailable [place], Joan Primary Care Unavailable Oleghe, Efewongbe Attending Unavailable [place], Joan Primary Care Unavailable [place] GENERAL HARDWARE SALESPERSON, Britney Attending Unavailable [place], Joan Primary Care Unavailable [place] GENERAL HARDWARE SALESPERSON, Britney Attending Unavailable [place], Joan Primary Care Unavailable Poornima Romeo Attending Unavailable [place], Joan Primary Care Unavailable Oleghe, Efewongbe Attending Unavailable [place], Joan Primary Care Unavailable [place] GENERAL HARDWARE SALESPERSON, Britney Attending Unavailable [place], Joan Primary Care Unavailable [place] GENERAL HARDWARE SALESPERSON, Britney Attending Unavailable Oleghe, Efewongbe Attending Unavailable [place], Joan Primary Care Unavailable Oleghe OLS, Efewongbe Attending Unavailabl e [place], Joan Primary Care Unavailable Oleghe OLS, Efewongbe Attending Unavailabl e [place], Joan Primary Care Unavailable Allergies Allergy Classification Reported Allergen(s) Allergy Type Date of Onset Reaction(s) Facility Aspirin / Caffeine / Orphenadrine (11 sources) Aspirin / Caffeine / Orphenadrine Drug Allergy 5 [facility] NSAIDs (20 sources) Ibuprofen Drug Allergy 5 Swelling, Hives, Itching [facility] Penicillins (antibiotic) (11 sources) Penicillins Drug Allergy 5 [facility] Sulfonamides (antibiotic) (11 sources) Sulfonamides (Antibiotic) Drug Allergy 6 [facility] Tetracyclines (antibiotic) (11 sources) Tetracycline Drug Allergy 5 [facility] (20 sources) aspirin / caffeine / orphenadrine; Translations: [ORPHENADRINE- A-CAFFEINE] Propensity to adverse reactions to drug 5 [facility] Work Phone: (20 sources) ibuprofen; Translations: [IBUPROFEN] Propensity to adverse reactions to drug 8 Swelling [facility] Work Phone: (20 sources) naproxen; Translations: [NAPROXEN SODIUM] Propensity to adverse reactions to drug 5 Hives, Itching, Swelling [facility] Work Phone: (20 sources) Penicillins; Translations: [PENICILLINS] Propensity to adverse reactions to drug 5 [facility] Work Phone: (20 sources) Sulfonamides (Antibiotic); Translations: [SULFA (SULFONAMIDE ANTIBIOTICS)] Propensity to adverse reactions to drug 6 [facility] Work Phone: (20 sources) tetracycline; Translations: [TETRACYCLINE] Propensity to adverse reactions to drug 5 [facility] Work Phone: (6 sources) Penicillins Propensity to adverse reactions to drug 5 [facility] (8 sources) Sulfonamides (Antibiotic) Propensity to adverse reactions to drug 6 [facility] (20 sources) Naproxen Drug Allergy 1 Rash [facility] (20 sources) tiZANidine Drug Allergy 9 Other: See [facility] (2 sources) Penicillins Propensity to adverse reactions 5 [facility] (1 source) Naproxen Drug Allergy 1 [facility] Repository (1 source) Penicillins Drug allergy (disorder) 1 [facility] Repository (1 source) Sulfonamides (Antibiotic) Drug allergy (disorder) 1 [facility] Repository (1 source) tiZANidine Drug Allergy 1 [facility] Repository Medications Current Medications Medication Drug Class(es) [...] 0 04/09/2009 Active take 1 tablet by [facility] every six hours as needed for [...] Active Start: 01-23-2018 take 1 tablet by [facility] twice daily dalfampridine 10 mg Tb12 [...] solid 25 mg 25 mg, Oral, Once, [facility] 05/04/17 at 0900, For 1 dose, Administer 30 minutes prior to Ocrelizumab. Given 05/04/2017 08:53 EST 25 mg Start: 04-13-2017 End: 04-13-2017 take 25 mg by mouth once diphenhydrAMINE (BENADRYL) o ral solid 25 mg 25 mg, Oral, Once, [facility] 04/13/17 at 1200, For 1 dose, [...] 09-04-2024 Anion gap [Moles/Vol] 15 mmol/L 5-[address] [facility] BUN/creatinine ratioOrdered By: Breanne Ruiz on 09-04-2024 Urea nitrogen/Creatinine [Mass ratio] 30.0 mg/mg High 10- [facility] Carbon dioxide, total [Moles /volume] in Central venous bloodOrdered By: Breanne Ruiz on 09-04-2024 CO2 [Moles/Vol] 20.5 mmol/L Low 21.0-32.0 [facility] Chloride assayOrdered By: Elio Ruiz on 09-04-2024 Chloride [Moles/Vol] 102 mmol/L 98-108 [facility] GFR/1.73 sq M.predicted cinda g non-blacks MDRD (S/P/Bld) [Vol rate/Area]Ordered By: Breanne Ruiz on 09-04-2024 Estimated GFR (MDRD) Non-Af Amer 68 >60 [facility] Comment on above: mL/min/1.73m2 CKD-EP I Creatinine Equation (2020) Potassium (Unsp spec) [Mass/ Vol]Ordered By: Breanne Ruiz on 09-04-2024 Potassium [Moles/Vol] 4.1 mmol/L 3.3-5.[address] [facility] Comment on above: Hemolysis present, R esults could be affected. Serum creatinine measurement (mass/volume)Ordered By: Breanne Ruiz on 09-04-2024 Creatinine [Mass/Vol] 0.93 mg/dL 0.70-1.[address] [facility] Serum glucose measurement (m ass/volume)Ordered By: Breanne Ruiz on 09-04-2024 Glucose [Mass/Vol] 137 mg/dL High 70-99 [facility] Serum or plasma calcium jj urement (mass/volume)Ordered By: Breanne Ruiz on 09-04-2024 Calcium [Mass/Vol] 10.3 mg/dL 7.6-11.0 [facility] Serum or plasma urea nitroge n measurement (mass/volume)Ordered By: Breanne Ruiz on 09-04-2024 Urea nitrogen [Mass/Vol] 28 mg/dL High 4-19 [facility] Sodium levelOrdered By: Abbie Ruiz on 09-04-2024 Sodium [Moles/Vol] 137 mmol/L 133-145 [facility] Hemoglobin A1c percentageOrd ered By: Breanne Ruiz on 09-03-2024 HbA1c (Bld) [Mass fraction] 7.9 % >5.7 [facility] Genital cultureOrdered By: Beverly Ruiz on 08-19-2024 Genital Culture Staphylococcus aureus Abnormal [facility] Gram stainOrdered By: Hank Ruiz on 08-19-2024 Microscopic observation Gram stain Nom (Unsp spec) [facility] Absolute neutrophil countOrd ered By: Breanne Ruiz on 08-06-2024 Neutrophils (Bld) [#/Vol] 7.0 10*3/uL 2.0-7.7 [facility] Anion gap in Serum or Plasma Ordered By: Breanne Ruiz on 08-06-2024 Anion gap [Moles/Vol] 13 mmol/L 5-[address] [facility] BUN/creatinine ratioOrdered By: Breanne Ruiz on 08-06-2024 Urea nitrogen/Creatinine [Mass ratio] 27.6 mg/mg High 10-20 [facility] Basophil percentageOrdered B y: Breanne Ruiz on 08-06-2024 Basophils/100 WBC (Bld) 0.7 % 0-1 [facility] Bilirubin, totalOrdered By: Breanne Ruiz on 08-06-2024 Bilirubin [Mass/Vol] 0.21 mg/dL 0.00-1.30 [facility] Carbon dioxide, total [Moles /volume] in Central venous bloodOrdered By: Breanne Ruiz on 08-06-2024 CO2 [Moles/Vol] 22.7 mmol/L 21.0-32.0 [facility] Chloride assayOrdered By: Elio Ruiz on 08-06-2024 Chloride [Moles/Vol] 101 mmol/L 98-108 [facility] Eosinophil percentageOrdered By: Breanne Ruiz on 08-06-2024 Eosinophils/100 WBC (Bld) 3.8 % 0-5 [facility] Erythrocyte distribution wid th (RBC) [Ratio]Ordered By: Breanne Ruiz on 08-06-2024 Erythrocyte distribution width (RBC) [Entitic vol] 46.3 fL High 35.1-43.9 [facility] Erythrocyte distribution wid th ratioOrdered By: adalbertonorth branchchetan Ruiz on 08-06-2024 Erythrocyte distribution width (RBC) [Ratio] 15.6 % High 11.6-14.6 [facility] GFR/1.73 sq M.predicted cinda g non-blacks MDRD (S/P/Bld) [Vol rate/Area]Ordered By: Breanne Ruiz on 08-06-2024 Estimated GFR (MDRD) Non-Af Amer 66 >60 [facility] Comment on above: mL/min/1.73m2 CKD-EP I Creatinine Equation (2020) Hematocrit Auto (Bld) [Volum e fraction]Ordered By: Breanne Ruiz on 08-06-2024 Hematocrit (Bld) [Volume fraction] 41.6 % 37-47 [facility] Hemoglobin measurementOrdere d By: Breanne Ruiz on 08-06-2024 Hemoglobin (Bld) [Mass/Vol] 12.5 g/dL 12.0-15.0 [facility] Immature granulocytes/100 WB C Auto (Bld)Ordered By: Breanne Ruiz on 08-06-2024 Immature granulocytes/100 WBC (Bld) 1.000 % High 0.0-0.9 [facility] Comment on above: IG% - Immature Granu locytes (promyelocytes, myelocytes and metamyelocytes) > 1% indicates that a LEFT SHIFT is Present. Laboratory - Chemistry and C hemistry - challengeOrdered By: Breanne Ruiz on 08-06-2024 AST [Catalytic activity/Vol] 16 U/L <32 [facility] Lymphocytes Auto (Unsp spec) [#/Vol]Ordered By: [facility]landbeverly on 08-06-2024 Lymphocytes (Bld) [#/Vol] 1.08 10*3/uL 0.83-4.5 1 [facility] Lymphocytes/100 WBC Auto (Un sp spec)Ordered By: Breanne Ruiz on 08-06-2024 Lymphocytes/100 WBC (Bld) 11.0 % Low 19-41 [facility] MCV (mean corpuscular volume ) determinationOrdered By: vannessa Ruiz on 08-06-2024 MCV (RBC) [Entitic vol] 80.9 fL Low 81-99 [facility] Mean corpuscular hemoglobin (MCH) determinationOrdered By: [facility] on 08-06-2024 MCH (RBC) [Entitic mass] 24.3 pg Low 27.0-32.0 [facility] Mean corpuscular hemoglobin concentration (MCHC) determinationOrdered By: [facility] on 08-06-2024 MCHC (RBC) [Mass/Vol] 30.0 g/dL Low 32-[address] [facility] Mean platelet volume determi nationOrdered By: [facility] on 08-06-2024 Platelet mean volume (Bld) [Entitic vol] 8.8 fL 6.2-12.0 [facility] Monocyte percentageOrdered B y: [facility] Kirklandbeverly on 08-06-2024 Monocytes/100 WBC (Bld) 12.5 % High 0-10 [facility] Neutrophil percentageOrdered By: [facility] Isaelbeverly on 08-06-2024 Neutrophils/100 WBC (Bld) 71.0 % High 47-70 [facility] Nucleated red blood cell per centageOrdered By: [facility] Kirklandbeverly on 08-06-2024 Nucleated RBC/100 WBC (Bld) [Ratio] 0 % 0-5 [facility] Platelet countOrdered By: Elio Ruiz on 08-06-2024 Platelets (Bld) [#/Vol] 452 10*3/uL High 150-450 [facility] Potassium (Unsp spec) [Mass/ Vol]Ordered By: Breanne Ruiz on 08-06-2024 Potassium [Moles/Vol] 3.9 mmol/L 3.3-5.[address] [facility] RBC Auto (Bld) [#/Vol]Ordere d By: Breanne Ruiz on 08-06-2024 RBC (Bld) [#/Vol] 5.14 10*6/uL 4.2-5.4 [facility] Serum creatinine measurement (mass/volume)Ordered By: Breanne Ruiz on 08-06-2024 Creatinine [Mass/Vol] 0.96 mg/dL 0.70-1.[address] [facility] Serum globulin measurementOr dered By: Breanne Ruiz on 08-06-2024 Globulin (S) [Mass/Vol] 3.8 g/dL 2.2-4.2 [facility] Serum glucose measurement (m ass/volume)Ordered By: Breanne Ruiz on 08-06-2024 Glucose [Mass/Vol] 188 mg/dL High 70-99 [facility] Serum or plasma alanine juárez otransferase (ALT) measurementOrdered By: Breanne Ruiz on 08-06-2024 ALT [Catalytic activity/Vol] 10 U/L <35 [facility] Serum or plasma albumin jj urement (mass/volume)Ordered By: Breanne Ruiz on 08-06-2024 Albumin [Mass/Vol] 3.3 g/dL Low 3.4-4.8 [facility] Serum or plasma albumin/glob ulin mass ratioOrdered By: Breanne Ruiz on 08-06-2024 Albumin/Globulin [Mass ratio] 0.9 {ratio} 0.9-2.4 [facility] Serum or plasma alkaline sofi sphatase measurementOrdered By: Breanne Ruiz on 08-06-2024 ALP [Catalytic activity/Vol] 80 U/L 35-104 [facility] Serum or plasma calcium jj urement (mass/volume)Ordered By: Breanne Ruiz on 08-06-2024 Calcium [Mass/Vol] 10.1 mg/dL 7.6-11.0 [facility] Serum or plasma urea nitroge n measurement (mass/volume)Ordered By: Breanne Ruiz on 08-06-2024 Urea nitrogen [Mass/Vol] 26 mg/dL High 4-19 [facility] Sodium levelOrdered By: Abbie kaminskirabia Sara on 08-06-2024 Sodium [Moles/Vol] 137 mmol/L 133-145 [facility] Total proteinOrdered By: Prashant raphaelchetan Ruiz on 08-06-2024 Protein [Mass/Vol] 7.1 g/dL 5.9-8.4 [facility] White blood cell (WBC) count Ordered By: Breanne Ruiz on 08-06-2024 WBC (Bld) [#/Vol] 9.8 10*3/uL 4.4-11.0 [facility] Bilirubin Test strip Ql (U)O rdered By: Breanne Ruiz on 08-05-2024 Bilirubin Ql (U) Negative Negative [facility] Epithelial cells.squamous LM Ql (Urine sed)Ordered By: Breanne Ruiz on 08-05-2024 Epithelial cells.squamous LM.HPF (Urine sed) [#/Area] 0 /[HPF] 5-10 [facility] Glucose Ql (U)Ordered By: Elio Ruiz on 08-05-2024 Glucose (U) [Mass/Vol] 50 mg/dL High Normal [facility] Ketones Test strip Ql (U)Ord ered By: Breanne Ruiz on 08-05-2024 Ketones Ql (U) Negative Negative [facility] Microscopic analysis of urin e for red blood cells (RBC)Ordered By: Breanne Ruiz on 08-05-2024 Urine RBC 0-5 SEEN /hpf 0-5 [facility] Mucus LM Ql (Urine sed)Order ed By: Breanne Ruiz on 08-05-2024 Mucus Ql (Urine sed) 0 SEEN /hpf [facility] Nitrite Test strip Ql (U)Ord ered By: Breanne Ruiz on 08-05-2024 Nitrite Ql (U) Negative Negative [facility] Protein Test strip Ql (U)Ord ered By: Breanne Ruiz on 08-05-2024 Protein Ql (U) 500 mg/dl High Negative [facility] Urine blood detectionOrdered By: Breanne Ruiz on 08-05-2024 Urine Occult Blood 250 /ul High Negative [facility] Urine clarityOrdered By: Prashant Ruiz on 08-05-2024 Clarity (U) Turbid Clear [facility] Urine color determinationOrd ered By: Breanne Ruiz on 08-05-2024 Color (U) Straw Yellow [facility] Urine cultureOrdered By: Prashant Ruiz on 08-05-2024 Bacteria identified Cx Nom (U) Alpha Hemolytic Streptococcus Abnormal [facility] Bacteria identified Cx Nom (U) Klebsiella pneumoniae sp pneum Abnormal [facility] Urine leukocyte esterase det ection by dipstickOrdered By: Breanne Ruiz on 08-05-2024 Leukocyte esterase Test strip Ql (U) 500 /ul High Negative [facility] Urine pHOrdered By: Bhupendra Ruiz on 08-05-2024 pH (U) 6.0 [pH] 5.0 - 8.0 [facility] Urine sediment bacteria coun t by microscopy (number/high power field)Ordered By: Breanne Ruiz on 08-05-2024 Bacteria LM.HPF (Urine sed) [#/Area] 3 /[HPF] None Seen [facility] Urine specific gravity measu rementOrdered By: Breanne Ruiz on 08-05-2024 Specific gravity (U) [Rel density] 1.020 1.002-1.030 [facility] Urobilinogen Ql (U)Ordered B y: Breanne Ruiz on 08-05-2024 Urine Urobilinogen Normal mg/dl Normal [facility] White blood cell countOrdere d By: Breanne Ruiz on 08-05-2024 Urine WBC >100 SEEN /hpf 0-5 [facility] High density lipoprotein (HD L) measurementOrdered By: Breanne Ruiz on 07-09-2024 Cholesterol in HDL [Mass/Vol] 38 mg/dL Low >40 [facility] Comment on above: The drugs N-Acetylcy steine and Metamizole may falsely depress this assay. Reference Range HDL <40 mg/dL Low HDL Cholesterol HDL >or= 60 mg/dL High HDL Cholesterol Low density lipoprotein (LDL ) cholesterol measurementOrdered By: Breanne Ruiz on 07-09-2024 Cholesterol in LDL [Mass/Vol] 41 mg/dL 0-130 [facility] Serum or plasma cholesterol measurement (mass/volume)Ordered By: Breanne Ruiz on 07-09-2024 Cholesterol [Mass/Vol] 143 mg/dL <200 [facility] Comment on above: <200 mg/dL Desirable 200-240 mg/dL Borderline >240 mg/dL High Risk Triglycerides measurementOrd ered By: Breanne Ruiz on 07-09-2024 Triglyceride [Mass/Vol] 321 mg/dL High <199 [facility] Comment on above: The drugs N-Acetylcy steine and Metamizole may falsely depress this assay.Serum Triglycerides Reference Interval Normal <150 mg/dL Borderline high 150 - 199 mg/dL High 200 - 499 mg/dL Very High > or = 500 mg/dL Very low density lipoprotein (VLDL) cholesterol measurementOrdered By: Breanne Ruiz on 07-09-2024 VLDL Cholesterol 64 mg/dL High 5-40 [facility] Hemoglobin A1c percentageOrd ered By: Breanne Ruiz on 06-11-2024 HbA1c (Bld) [Mass fraction] 7.2 % High 3.8-5.6 [facility] Comment on above: Normal < 5.7 % Predi abetic 5.7 - 6.4 % Diabetic >or= 6.5 % Please note range changes. Whole blood hemoglobin A1c/t otal hemoglobin ratio (mass fraction)Ordered By: Breanne Ruiz on 09-05-2023 HbA1c (Bld) [Mass fraction] 6.7 % 3.8-5.6 [facility] Comment on above: Normal < 5.7 % Predi abetic 5.7 - 6.4 % Diabetic >or= 6.5 % Please note range changes. Basophil percentageOrdered B y: Breanne Ruiz on 08-10-2023 Potassium [Moles/Vol] 4.0 mmol/L 3.5-5.[address] [facility] Comment on above: Slight Hemolysis, Re sult may be falsely increased. Absolute lymphocyte countOrd ered By: Abbienorth branchchetan Ruiz on 08-08-2023 Lymphocytes Auto (Unsp spec) [#/Vol] 1.44 10*3/uL 0.83-4.51 [facility] Automated lymphocyte count a s percentage of total leukocytesOrdered By: adalbertonorth branchchetan Kirklandbeverly on 08-08-2023 Lymphocytes/100 WBC Auto (Unsp spec) 12.7 % 19-41 [facility] Basophil percentageOrdered B y: Breanne Ruiz on 08-08-2023 Basophils/100 WBC (Bld) 1.1 % 0-1 [facility] Bilirubin [Mass/Vol] 0.30 mg/dL 0.20-1.00 [facility] Comment on above: For patients on eltr ombopag therapy, use of Dimension [place] TBIL is not recommended. Chloride [Moles/Vol] 107 mmol/L 98-107 [facility] Eosinophils/100 WBC (Bld) 3.1 % 0-5 [facility] Glucose [Mass/Vol] 153 mg/dL 74-106 [facility] Comment on above: Fasting Glucose resu lt greater than or equal to 126 mg/dL suggests DIABETES MELLITUS per A.D.A. criteria. Hemoglobin (Bld) [Mass/Vol] 14.3 g/dL 12.0-15.0 [facility] Monocytes/100 WBC (Bld) 10.4 % 0-10 [facility] Neutrophils (Bld) [#/Vol] 8.1 10*3/uL 2.0-7.7 [facility] Neutrophils/100 WBC (Bld) 71.8 % 47-70 [facility] Potassium [Moles/Vol] 3.4 mmol/L 3.5-5.[address] [facility] Protein [Mass/Vol] 6.9 g/dL 6.4-8.2 [facility] Sodium [Moles/Vol] 141 mmol/L 136-145 [facility] WBC (Bld) [#/Vol] 11.3 10*3/uL 4.4-11.0 [facility] Determination of erythrocyte mean corpuscular volume (MCV)Ordered By: Breanne Ruiz on 08-08-2023 MCV (RBC) [Entitic vol] 88.6 fL 81-99 [facility] Erythrocyte distribution wid th ratioOrdered By: vannessa Ruiz on 08-08-2023 Erythrocyte distribution width (RBC) [Ratio] 14.8 % 11.6-14.6 [facility] Erythrocyte distribution wid th standard deviationOrdered By: adalbertonorth branchchetan Ruiz on 08-08-2023 Erythrocyte distribution width (RBC) [Entitic vol] 47.9 fL 35.1-43.9 [facility] Hematocrit Auto (Bld) [Volum e fraction]Ordered By: Breanne Ruiz on 08-08-2023 Hematocrit (Bld) [Volume fraction] 46.7 % 37-47 [facility] Immature granulocytes/100 WB C Auto (Bld)Ordered By: adalbertonorth branchchetan Ruiz on 08-08-2023 Immature granulocytes/100 WBC (Bld) 0.900 % 0.0-0.9 [facility] Comment on above: IG% - Immature Granu locytes (promyelocytes, myelocytes and metamyelocytes) > 1% indicates that a LEFT SHIFT is Present. Laboratory - Chemistry and C hemistry - challengeOrdered By: Breanne Ruiz on 08-08-2023 Albumin/Globulin [Mass ratio] 0.9 {ratio} 0.9-2.4 [facility] ALP [Catalytic activity/Vol] 93 U/L 45-117 [facility] ALT [Catalytic activity/Vol] 36 U/L 13-56 [facility] CO2 [Moles/Vol] 26.0 mmol/L 21.0-32.0 [facility] Globulin (S) [Mass/Vol] 3.7 g/dL 2.2-4.2 [facility] Urea nitrogen/Creatinine [Mass ratio] 28.0 mg/mg 10-20 [facility] Laboratory - Hematology and Cell countsOrdered By: Breanne Ruiz on 08-08-2023 MCH (RBC) [Entitic mass] 27.1 pg 27.0-32.0 [facility] MCHC (RBC) [Mass/Vol] 30.6 g/dL 32-[address] [facility] Nucleated RBC/100 WBC (Bld) [Ratio] 0 % 0-5 [facility] Platelet mean volume (Bld) [Entitic vol] 9.3 fL 6.2-12.0 [facility] Platelets (Bld) [#/Vol] 535 10*3/uL 150-450 [facility] No Panel InformationOrdered By: Breanne Ruiz on 08-08-2023 Estimated GFR (MDRD) Amer 105 mL/min >60 [facility] Comment on above: GFR Calc Estimated GFR (MDRD) Non-Af Amer 87 mL/min >60 [facility] Comment on above: Non- GFR Calc RBC Auto (Bld) [#/Vol]Ordere d By: Breanne Ruiz on 08-08-2023 RBC (Bld) [#/Vol] 5.27 10*6/uL 4.2-5.4 [facility] Serum or plasma calcium jj urement (mass/volume)Ordered By: Breanne Ruiz on 08-08-2023 Calcium [Mass/Vol] 10.0 mg/dL 8.5-10.1 [facility] Serum or plasma creatinine m easurement (mass/volume)Ordered By: Breanne Ruiz on 08-08-2023 Creatinine [Mass/Vol] 0.71 mg/dL 0.55-1.[address] [facility] Comment on above: The validity of the calculated GFR & GFRAA in patients over 70 years has not been determined. Clinical correlation is essential. Serum or plasma urea nitroge n measurement (mass/volume)Ordered By: Breanne Ruiz on 08-08-2023 Urea nitrogen [Mass/Vol] 20 mg/dL 7-18 [facility] Thin prep Papanicolaou smear with manual screeningOrdered By: Breanne Ruiz on 08-08-2023 Thin prep Papanicolaou smear with manual screening 3.2 g/dL 3.2-5.0 [facility] Thin prep Papanicolaou smear with manual screening 31 U/L 15-37 [facility] Thin prep Papanicolaou smear with manual screening 8 5-15 [facility] Basophil percentageOrdered B y: Breanne uRiz on 07-17-2023 Chloride [Moles/Vol] 109 mmol/L 98-107 [facility] Glucose [Mass/Vol] 150 mg/dL 74-106 [facility] Comment on above: Fasting Glucose resu lt greater than or equal to 126 mg/dL suggests DIABETES MELLITUS per A.D.A. criteria. Potassium [Moles/Vol] 3.8 mmol/L 3.5-5.[address] [facility] Sodium [Moles/Vol] 143 mmol/L 136-145 [facility] Laboratory - Chemistry and C hemistry - challengeOrdered By: Breanne Ruiz on 07-17-2023 CO2 [Moles/Vol] 24.0 mmol/L 21.0-32.0 [facility] Urea nitrogen/Creatinine [Mass ratio] 31.3 mg/mg 10-20 [facility] No Panel InformationOrdered By: Breanne Ruiz on 07-17-2023 Estimated GFR (MDRD) Amer 114 mL/min >60 [facility] Comment on above: GFR Calc Estimated GFR (MDRD) Non-Af Amer 94 mL/min >60 [facility] Comment on above: Non- GFR Calc Serum or plasma calcium jj urement (mass/volume)Ordered By: Breanne Ruiz on 07-17-2023 Calcium [Mass/Vol] 9.6 mg/dL 8.5-10.1 [facility] Serum or plasma creatinine m easurement (mass/volume)Ordered By: Breanne Ruiz on 07-17-2023 Creatinine [Mass/Vol] 0.67 mg/dL 0.55-1.[address] [facility] Comment on above: The validity of the calculated GFR & GFRAA in patients over 70 years has not been determined. Clinical correlation is essential. Serum or plasma urea nitroge n measurement (mass/volume)Ordered By: Breanne Ruiz on 07-17-2023 Urea nitrogen [Mass/Vol] 21 mg/dL 7-18 [facility] Thin prep Papanicolaou smear with manual screeningOrdered By: Breanne Ruiz on 07-17-2023 Thin prep Papanicolaou smear with manual screening 10 5-15 [facility] Basophil percentageOrdered B y: Breanne Ruiz on 07-03-2023 Chloride [Moles/Vol] 109 mmol/L 98-107 [facility] Glucose [Mass/Vol] 156 mg/dL 74-106 [facility] Comment on above: Fasting Glucose resu lt greater than or equal to 126 mg/dL suggests DIABETES MELLITUS per A.D.A. criteria. Potassium [Moles/Vol] 3.5 mmol/L 3.5-5.[address] [facility] Comment on above: Slight Hemolysis, Re sult may be falsely increased. Sodium [Moles/Vol] 141 mmol/L 136-145 [facility] Laboratory - Chemistry and C hemistry - challengeOrdered By: Breanne Ruiz on 07-03-2023 CO2 [Moles/Vol] 25.0 mmol/L 21.0-32.0 [facility] Urea nitrogen/Creatinine [Mass ratio] 29.4 mg/mg 10-20 [facility] No Panel InformationOrdered By: Breanne Ruiz on 07-03-2023 Estimated GFR (MDRD) Amer 111 mL/min >60 [facility] Comment on above: GFR Calc Estimated GFR (MDRD) Non-Af Amer 92 mL/min >60 [facility] Comment on above: Non- GFR Calc Serum or plasma calcium jj urement (mass/volume)Ordered By: Breanne Ruiz on 07-03-2023 Calcium [Mass/Vol] 9.8 mg/dL 8.5-10.1 [facility] Serum or plasma creatinine m easurement (mass/volume)Ordered By: Breanne Ruiz on 07-03-2023 Creatinine [Mass/Vol] 0.68 mg/dL 0.55-1.[address] [facility] Comment on above: The validity of the calculated GFR & GFRAA in patients over 70 years has not been determined. Clinical correlation is essential. Serum or plasma urea nitroge n measurement (mass/volume)Ordered By: Breanne Vangbeverly on 07-03-2023 Urea nitrogen [Mass/Vol] 20 mg/dL 7-18 [facility] Thin prep Papanicolaou smear with manual screeningOrdered By: Breanne Ruiz on 07-03-2023 Thin prep Papanicolaou smear with manual screening 7 5-15 [facility] Whole blood hemoglobin A1c/t otal hemoglobin ratio (mass fraction)Ordered By: Rufinochetan Kirklandmichaelbeverly on 06-06-2023 HbA1c (Bld) [Mass fraction] 7.5 % 3.8-5.6 [facility] Comment on above: Normal < 5.7 % Predi abetic 5.7 - 6.4 % Diabetic >or= 6.5 % Please note range changes. Absolute lymphocyte countOrd ered By: Breanne Ruiz on 05-09-2023 Lymphocytes Auto (Unsp spec) [#/Vol] 1.09 10*3/uL 0.83-4.51 [facility] Basophil percentageOrdered B y: Breanne Isaelmichaelbeverly on 05-09-2023 Basophils/100 WBC (Bld) 1.2 % 0-1 [facility] Bilirubin [Mass/Vol] 0.30 mg/dL 0.20-1.00 [facility] Comment on above: For patients on eltr ombopag therapy, use of Dimension [place] TBIL is not recommended. Chloride [Moles/Vol] 107 mmol/L 98-107 [facility] Eosinophils/100 WBC (Bld) 2.8 % 0-5 [facility] Glucose [Mass/Vol] 203 mg/dL 74-106 [facility] Comment on above: Glucose result great er than or equal to 200 mg/dLsuggests DIABETES MELLITUS per A.D.A. criteria. Neutrophils (Bld) [#/Vol] 5.5 10*3/uL 2.0-7.7 [facility] Neutrophils/100 WBC (Bld) 68.1 % 47-70 [facility] Potassium [Moles/Vol] 4.0 mmol/L 3.5-5.[address] [facility] Protein [Mass/Vol] 7.0 g/dL 6.4-8.2 [facility] Sodium [Moles/Vol] 140 mmol/L 136-145 [facility] WBC (Bld) [#/Vol] 8.1 10*3/uL 4.4-11.0 [facility] Blood erythrocytes count (nu mber/volume)Ordered By: Breanne Ruiz on 05-09-2023 RBC (Bld) [#/Vol] 5.62 10*6/uL 4.2-5.4 [facility] Blood hemoglobin measurement (mass/volume)Ordered By: Breanne Ruiz on 05-09-2023 Hemoglobin (Bld) [Mass/Vol] 14.7 g/dL 12.0-15.0 [facility] Blood lymphocytes/100 leukoc ytesOrdered By: adalbertonorth branchchetan uRiz on 05-09-2023 Lymphocytes/100 WBC (Bld) 13.4 % 19-41 [facility] Blood monocytes/100 leukocyt esOrdered By: adalbertonorth branchchetan Ruiz on 05-09-2023 Monocytes/100 WBC (Bld) 13.8 % 0-10 [facility] Blood platelet mean volumeOr dered By: vannessa Ruiz on 05-09-2023 Platelet mean volume (Bld) [Entitic vol] 9.6 fL 6.2-12.0 [facility] Determination of erythrocyte mean corpuscular volume (MCV)Ordered By: Breanne Ruiz on 05-09-2023 MCV (RBC) [Entitic vol] 88.1 fL 81-99 [facility] Hematocrit Auto (Bld) [Volum e fraction]Ordered By: Breanne Ruiz on 05-09-2023 Hematocrit (Bld) [Volume fraction] 49.5 % 37-47 [facility] Laboratory - Chemistry and C hemistry - challengeOrdered By: Breanne Ruiz on 05-09-2023 ALP [Catalytic activity/Vol] 111 U/L 45-117 [facility] ALT [Catalytic activity/Vol] 57 U/L 13-56 [facility] CO2 [Moles/Vol] 25.0 mmol/L 21.0-32.0 [facility] Globulin (S) [Mass/Vol] 3.7 g/dL 2.2-4.2 [facility] Urea nitrogen/Creatinine [Mass ratio] 38.0 mg/mg 10-20 [facility] Laboratory - Hematology and Cell countsOrdered By: Breanne Ruiz on 05-09-2023 Erythrocyte distribution width (RBC) [Entitic vol] 49.4 fL 35.1-43.9 [facility] Erythrocyte distribution width (RBC) [Ratio] 15.6 % 11.6-14.6 [facility] Immature granulocytes/100 WBC (Bld) 0.700 % 0.0-0.9 [facility] Comment on above: IG% - Immature Granu locytes (promyelocytes, myelocytes and metamyelocytes) > 1% indicates that a LEFT SHIFT is Present. MCH (RBC) [Entitic mass] 26.2 pg 27.0-32.0 [facility] Nucleated RBC/100 WBC (Bld) [Ratio] 0 % 0-5 [facility] MCHC Auto (RBC) [Mass/Vol]Or dered By: Breanne Ruiz on 05-09-2023 MCHC (RBC) [Mass/Vol] 29.7 g/dL 32-[address] [facility] No Panel InformationOrdered By: Breanne Ruiz on 05-09-2023 Estimated GFR (MDRD) Amer 111 mL/min >60 [facility] Comment on above: GFR Calc Estimated GFR (MDRD) Non-Af Amer 92 mL/min >60 [facility] Comment on above: Non- GFR Calc Platelets bldOrdered By: Prashant Ruiz on 05-09-2023 Platelets (Bld) [#/Vol] 553 10*3/uL 150-450 [facility] Serum or plasma albumin jj urement (mass/volume)Ordered By: Breanne Ruiz on 05-09-2023 Albumin [Mass/Vol] 3.3 g/dL 3.2-5.0 [facility] Serum or plasma albumin/glob ulin mass ratioOrdered By: Breanne Ruiz on 05-09-2023 Albumin/Globulin [Mass ratio] 0.9 {ratio} 0.9-2.4 [facility] Serum or plasma calcium jj urement (mass/volume)Ordered By: Breanne Ruiz on 05-09-2023 Calcium [Mass/Vol] 9.6 mg/dL 8.5-10.1 [facility] Serum or plasma creatinine m easurement (mass/volume)Ordered By: Breanne Ruiz on 05-09-2023 Creatinine [Mass/Vol] 0.68 mg/dL 0.55-1.[address] [facility] Comment on above: The validity of the calculated GFR & GFRAA in patients over 70 years has not been determined. Clinical correlation is essential. Serum or plasma urea nitroge n measurement (mass/volume)Ordered By: Breanne Ruiz on 05-09-2023 Urea nitrogen [Mass/Vol] 26 mg/dL 7-18 [facility] Thin prep Papanicolaou smear with manual screeningOrdered By: vannessa Ruiz on 05-09-2023 Thin prep Papanicolaou smear with manual screening 37 U/L 15-37 [facility] Thin prep Papanicolaou smear with manual screening 8 5-15 [facility] Clostridium difficile detect ion by polymerase chain reactionOrdered By: Breanne Ruiz on 02-23-2023 C. difficile DNA MAGALIE+probe Ql (Unsp spec) [facility] Clostridium difficile detect ion by polymerase chain reactionOrdered By: Breanne Ruiz on 02-22-2023 C. difficile DNA MAGALIE+probe Ql (Unsp spec) [facility] Absolute lymphocyte countOrd ered By: Britney Worthington on 02-21-2023 Lymphocytes Auto (Unsp spec) [#/Vol] 0.97 10*3/uL 0.83-4.51 [facility] Basophil percentageOrdered B y: Britney Worthington on 02-21-2023 Basophils/100 WBC (Bld) 1.2 % 0-1 [facility] Chloride [Moles/Vol] 108 mmol/L 98-107 [facility] Eosinophils/100 WBC (Bld) 4.4 % 0-5 [facility] Glucose [Mass/Vol] 178 mg/dL 74-106 [facility] Comment on above: Fasting Glucose resu lt greater than or equal to 126 mg/dL suggests DIABETES MELLITUS per A.D.A. criteria. Neutrophils (Bld) [#/Vol] 8.1 10*3/uL 2.0-7.7 [facility] Neutrophils/100 WBC (Bld) 74.9 % 47-70 [facility] Potassium [Moles/Vol] 3.7 mmol/L 3.5-5.[address] [facility] Sodium [Moles/Vol] 140 mmol/L 136-145 [facility] WBC (Bld) [#/Vol] 10.8 10*3/uL 4.4-11.0 [facility] Blood erythrocytes count (nu mber/volume)Ordered By: Britney Worthington on 02-21-2023 RBC (Bld) [#/Vol] 5.06 10*6/uL 4.2-5.4 [facility] Blood hemoglobin measurement (mass/volume)Ordered By: Britney Worthington on 02-21-2023 Hemoglobin (Bld) [Mass/Vol] 13.3 g/dL 12.0-15.0 [facility] Blood lymphocytes/100 leukoc ytesOrdered By: Britney Worthington on 02-21-2023 Lymphocytes/100 WBC (Bld) 9.0 % 19-41 [facility] Blood monocytes/100 leukocyt esOrdered By: Britney Worthington on 02-21-2023 Monocytes/100 WBC (Bld) 9.8 % 0-10 [facility] Blood platelet mean volumeOr dered By: Britney Worthington on 02-21-2023 Platelet mean volume (Bld) [Entitic vol] 9.2 fL 6.2-12.0 [facility] Determination of erythrocyte mean corpuscular volume (MCV)Ordered By: Britney Worthington on 02-21-2023 MCV (RBC) [Entitic vol] 89.5 fL 81-99 [facility] Hematocrit Auto (Bld) [Volum e fraction]Ordered By: Britney Worthington on 02-21-2023 Hematocrit (Bld) [Volume fraction] 45.3 % 37-47 [facility] Laboratory - Chemistry and C hemistry - challengeOrdered By: Britney Worthington on 02-21-2023 CO2 [Moles/Vol] 24.0 mmol/L 21.0-32.0 [facility] Urea nitrogen/Creatinine [Mass ratio] 37.7 mg/mg 10-20 [facility] Laboratory - Hematology and Cell countsOrdered By: Britney Worthington on 02-21-2023 Erythrocyte distribution width (RBC) [Entitic vol] 47.6 fL 35.1-43.9 [facility] Erythrocyte distribution width (RBC) [Ratio] 14.5 % 11.6-14.6 [facility] Immature granulocytes/100 WBC (Bld) 0.700 % 0.0-0.9 [facility] Comment on above: IG% - Immature Granu locytes (promyelocytes, myelocytes and metamyelocytes) > 1% indicates that a LEFT SHIFT is Present. MCH (RBC) [Entitic mass] 26.3 pg 27.0-32.0 [facility] Nucleated RBC/100 WBC (Bld) [Ratio] 0 % 0-5 [facility] MCHC Auto (RBC) [Mass/Vol]Or dered By: Britney Worthington on 02-21-2023 MCHC (RBC) [Mass/Vol] 29.4 g/dL 32-[address] [facility] No Panel InformationOrdered By: Britney Worthington on 02-21-2023 Estimated GFR (MDRD) Amer 105 mL/min >60 [facility] Comment on above: GFR Calc Estimated GFR (MDRD) Non-Af Amer 87 mL/min >60 [facility] Comment on above: Non- GFR Calc Platelets bldOrdered By: Phillip Worthington on 02-21-2023 Platelets (Bld) [#/Vol] 500 10*3/uL 150-450 [facility] Serum or plasma calcium jj urement (mass/volume)Ordered By: Britney Worthington on 02-21-2023 Calcium [Mass/Vol] 9.1 mg/dL 8.5-10.1 [facility] Serum or plasma creatinine m easurement (mass/volume)Ordered By: Britney Worthington on 02-21-2023 Creatinine [Mass/Vol] 0.72 mg/dL 0.55-1.[address] [facility] Comment on above: The validity of the calculated GFR & GFRAA in patients over 70 years has not been determined. Clinical correlation is essential. Serum or plasma urea nitroge n measurement (mass/volume)Ordered By: Britney Worthington on 02-21-2023 Urea nitrogen [Mass/Vol] 27 mg/dL 7-18 [facility] Thin prep Papanicolaou smear with manual screeningOrdered By: Britney Worthington on 02-21-2023 Thin prep Papanicolaou smear with manual screening 8 5-15 [facility] Bilirubin Test strip Ql (U)O rdered By: Breanne Ruiz on 02-13-2023 Bilirubin Ql (U) Negative Negative [facility] Culture, urineOrdered By: Elio Ruiz on 02-13-2023 Bacteria identified Cx Nom (U) Escherichia coli [facility] Ketones Test strip Ql (U)Ord ered By: Breanne Ruiz on 02-13-2023 Ketones Ql (U) 5 mg/dl Negative [facility] Nitrite Test strip Ql (U)Ord ered By: Breanne Ruiz on 02-13-2023 Nitrite Ql (U) Positive Negative [facility] Protein Test strip Ql (U)Ord ered By: Breanne Ruiz on 02-13-2023 Protein Ql (U) 30 mg/dl Negative [facility] Urine blood detectionOrdered By: Breanne Ruiz on 02-13-2023 RBC Ql (U) 250 /ul Negative [facility] Urine clarityOrdered By: Prashant Ruiz on 02-13-2023 Clarity (U) Cloudy Clear [facility] Urine color determinationOrd ered By: Breanne Ruiz on 02-13-2023 Color (U) Brown Yellow [facility] Urine glucose detectionOrder ed By: Breanne Ruiz on 02-13-2023 Glucose Ql (U) Normal mg/dl Normal [facility] Urine leukocyte esterase det ection by dipstickOrdered By: Breanne Ruiz on 02-13-2023 Leukocyte esterase Test strip Ql (U) 25 /ul Negative [facility] Urine pHOrdered By: Bhupendra Ruiz on 02-13-2023 pH (U) 5.0 [pH] 5.0 - 8.0 [facility] Urine specific gravity measu rementOrdered By: Abbielalitachetan Kirklandmichaelbeverly on 02-13-2023 Specific gravity (U) [Rel density] 1.025 1.002-1.030 [facility] Urobilinogen Auto test strip Ql (U)Ordered By: Elioadalbertolalitachetan Kirklandmichaelbeverly on 02-13-2023 Urobilinogen Ql (U) 1 mg/dl Normal [facility] Absolute lymphocyte countOrd ered By: vannessa Ruiz on 02-07-2023 Lymphocytes Auto (Unsp spec) [#/Vol] 0.94 10*3/uL 0.83-4.51 [facility] Basophil percentageOrdered B y: Elioadalbertolalitachetan Kirklandbeverly on 02-07-2023 Basophils/100 WBC (Bld) 1.1 % 0-1 [facility] Chloride [Moles/Vol] 110 mmol/L 98-107 [facility] Eosinophils/100 WBC (Bld) 5.5 % 0-5 [facility] Glucose [Mass/Vol] 160 mg/dL 74-106 [facility] Comment on above: Fasting Glucose resu lt greater than or equal to 126 mg/dL suggests DIABETES MELLITUS per A.D.A. criteria. Neutrophils (Bld) [#/Vol] 6.3 10*3/uL 2.0-7.7 [facility] Neutrophils/100 WBC (Bld) 70.8 % 47-70 [facility] Potassium [Moles/Vol] 3.9 mmol/L 3.5-5.[address] [facility] Sodium [Moles/Vol] 141 mmol/L 136-145 [facility] WBC (Bld) [#/Vol] 9.0 10*3/uL 4.4-11.0 [facility] Blood erythrocytes count (nu mber/volume)Ordered By: Breanne Ruiz on 02-07-2023 RBC (Bld) [#/Vol] 4.98 10*6/uL 4.2-5.4 [facility] Blood hemoglobin measurement (mass/volume)Ordered By: Breanne Ruiz on 02-07-2023 Hemoglobin (Bld) [Mass/Vol] 13.3 g/dL 12.0-15.0 [facility] Blood lymphocytes/100 leukoc ytesOrdered By: Breanne Ruiz on 02-07-2023 Lymphocytes/100 WBC (Bld) 10.5 % 19-41 [facility] Blood monocytes/100 leukocyt esOrdered By: Breanne Ruiz on 02-07-2023 Monocytes/100 WBC (Bld) 11.1 % 0-10 [facility] Blood platelet mean volumeOr dered By: Breanne Ruiz on 02-07-2023 Platelet mean volume (Bld) [Entitic vol] 9.0 fL 6.2-12.0 [facility] Determination of erythrocyte mean corpuscular volume (MCV)Ordered By: Breanne Ruiz on 02-07-2023 MCV (RBC) [Entitic vol] 88.8 fL 81-99 [facility] Hematocrit Auto (Bld) [Volum e fraction]Ordered By: Breanne Ruzi on 02-07-2023 Hematocrit (Bld) [Volume fraction] 44.2 % 37-47 [facility] Laboratory - Chemistry and C hemistry - challengeOrdered By: adalbertonorth branchchetan Ruiz on 02-07-2023 CO2 [Moles/Vol] 24.0 mmol/L 21.0-32.0 [facility] Urea nitrogen/Creatinine [Mass ratio] 37.3 mg/mg 10-20 [facility] Laboratory - Hematology and Cell countsOrdered By: Breanne Ruiz on 02-07-2023 Erythrocyte distribution width (RBC) [Entitic vol] 47.9 fL 35.1-43.9 [facility] Erythrocyte distribution width (RBC) [Ratio] 14.6 % 11.6-14.6 [facility] Immature granulocytes/100 WBC (Bld) 1.000 % 0.0-0.9 [facility] Comment on above: IG% - Immature Granu locytes (promyelocytes, myelocytes and metamyelocytes) > 1% indicates that a LEFT SHIFT is Present. MCH (RBC) [Entitic mass] 26.7 pg 27.0-32.0 [facility] Nucleated RBC/100 WBC (Bld) [Ratio] 0 % 0-5 [facility] MCHC Auto (RBC) [Mass/Vol]Or dered By: Breanne Ruiz on 02-07-2023 MCHC (RBC) [Mass/Vol] 30.1 g/dL 32-[address] [facility] No Panel InformationOrdered By: Breanne Ruiz on 02-07-2023 Estimated GFR (MDRD) Amer 132 mL/min >60 [facility] Comment on above: GFR Calc Estimated GFR (MDRD) Non-Af Amer 109 mL/min >60 [facility] Comment on above: Non- GFR Calc Platelets bldOrdered By: Prashant Ruiz on 02-07-2023 Platelets (Bld) [#/Vol] 478 10*3/uL 150-450 [facility] Serum or plasma calcium jj urement (mass/volume)Ordered By: Breanne Ruiz on 02-07-2023 Calcium [Mass/Vol] 8.9 mg/dL 8.5-10.1 [facility] Serum or plasma creatinine m easurement (mass/volume)Ordered By: Breanne Ruiz on 02-07-2023 Creatinine [Mass/Vol] 0.59 mg/dL 0.55-1.[address] [facility] Comment on above: The validity of the calculated GFR & GFRAA in patients over 70 years has not been determined. Clinical correlation is essential. Serum or plasma urea nitroge n measurement (mass/volume)Ordered By: Breanne Ruiz on 02-07-2023 Urea nitrogen [Mass/Vol] 22 mg/dL 7-18 [facility] Thin prep Papanicolaou smear with manual screeningOrdered By: Breanne Ruiz on 02-07-2023 Thin prep Papanicolaou smear with manual screening 7 5-15 [facility] Absolute lymphocyte countOrd ered By: Britney Worthington on 01-24-2023 Lymphocytes Auto (Unsp spec) [#/Vol] 0.89 10*3/uL 0.83-4.51 [facility] Basophil percentageOrdered B y: Britney Worthington on 01-24-2023 Basophils/100 WBC (Bld) 1.1 % 0-1 [facility] Chloride [Moles/Vol] 108 mmol/L 98-107 [facility] Eosinophils/100 WBC (Bld) 5.0 % 0-5 [facility] Glucose [Mass/Vol] 141 mg/dL 74-106 [facility] Comment on above: Fasting Glucose resu lt greater than or equal to 126 mg/dL suggests DIABETES MELLITUS per A.D.A. criteria. Neutrophils (Bld) [#/Vol] 5.9 10*3/uL 2.0-7.7 [facility] Neutrophils/100 WBC (Bld) 71.4 % 47-70 [facility] Potassium [Moles/Vol] 3.9 mmol/L 3.5-5.[address] [facility] Sodium [Moles/Vol] 140 mmol/L 136-145 [facility] WBC (Bld) [#/Vol] 8.2 10*3/uL 4.4-11.0 [facility] Blood erythrocytes count (nu mber/volume)Ordered By: Britney Worthington on 01-24-2023 RBC (Bld) [#/Vol] 4.81 10*6/uL 4.2-5.4 [facility] Blood hemoglobin measurement (mass/volume)Ordered By: Britney Worthington on 01-24-2023 Hemoglobin (Bld) [Mass/Vol] 12.8 g/dL 12.0-15.0 [facility] Blood lymphocytes/100 leukoc ytesOrdered By: Britney Worthington on 01-24-2023 Lymphocytes/100 WBC (Bld) 10.9 % 19-41 [facility] Blood monocytes/100 leukocyt esOrdered By: Britney Worthington on 01-24-2023 Monocytes/100 WBC (Bld) 11.0 % 0-10 [facility] Blood platelet mean volumeOr dered By: Britney Worthington on 01-24-2023 Platelet mean volume (Bld) [Entitic vol] 9.0 fL 6.2-12.0 [facility] Determination of erythrocyte mean corpuscular volume (MCV)Ordered By: Britney Worthington on 01-24-2023 MCV (RBC) [Entitic vol] 88.8 fL 81-99 [facility] Hematocrit Auto (Bld) [Volum e fraction]Ordered By: Britney Worthington on 01-24-2023 Hematocrit (Bld) [Volume fraction] 42.7 % 37-47 [facility] Laboratory - Chemistry and C hemistry - challengeOrdered By: Britney Worthington on 01-24-2023 CO2 [Moles/Vol] 25.0 mmol/L 21.0-32.0 [facility] Urea nitrogen/Creatinine [Mass ratio] 33.7 mg/mg 10-20 [facility] Laboratory - Hematology and Cell countsOrdered By: Britney Worthington on 01-24-2023 Erythrocyte distribution width (RBC) [Entitic vol] 48.3 fL 35.1-43.9 [facility] Erythrocyte distribution width (RBC) [Ratio] 14.8 % 11.6-14.6 [facility] Immature granulocytes/100 WBC (Bld) 0.600 % 0.0-0.9 [facility] Comment on above: IG% - Immature Granu locytes (promyelocytes, myelocytes and metamyelocytes) > 1% indicates that a LEFT SHIFT is Present. MCH (RBC) [Entitic mass] 26.6 pg 27.0-32.0 [facility] Nucleated RBC/100 WBC (Bld) [Ratio] 0 % 0-5 [facility] MCHC Auto (RBC) [Mass/Vol]Or dered By: Britney Worthington on 01-24-2023 MCHC (RBC) [Mass/Vol] 30.0 g/dL 32-[address] [facility] No Panel InformationOrdered By: Britney Worthington on 01-24-2023 Estimated GFR (MDRD) Amer 131 mL/min >60 [facility] Comment on above: GFR Calc Estimated GFR (MDRD) Non-Af Amer 108 mL/min >60 [facility] Comment on above: Non- GFR Calc Platelets bldOrdered By: Phillip Worthington on 01-24-2023 Platelets (Bld) [#/Vol] 479 10*3/uL 150-450 [facility] Serum or plasma calcium jj urement (mass/volume)Ordered By: Britney Worthington on 01-24-2023 Calcium [Mass/Vol] 8.9 mg/dL 8.5-10.1 [facility] Serum or plasma creatinine m easurement (mass/volume)Ordered By: Britney Worthington on 01-24-2023 Creatinine [Mass/Vol] 0.59 mg/dL 0.55-1.[address] [facility] Comment on above: The validity of the calculated GFR & GFRAA in patients over 70 years has not been determined. Clinical correlation is essential. Serum or plasma urea nitroge n measurement (mass/volume)Ordered By: Britney Worthington on 01-24-2023 Urea nitrogen [Mass/Vol] 20 mg/dL 7-18 [facility] Thin prep Papanicolaou smear with manual screeningOrdered By: Britney Worthington on 01-24-2023 Thin prep Papanicolaou smear with manual screening 7 5-15 [facility] Absolute lymphocyte countOrd ered By: Breanne Ruiz on 01-10-2023 Lymphocytes Auto (Unsp spec) [#/Vol] 0.84 10*3/uL 0.83-4.51 [facility] Basophil percentageOrdered B y: Breanne Ruiz on 01-10-2023 Basophils/100 WBC (Bld) 1.0 % 0-1 [facility] Chloride [Moles/Vol] 109 mmol/L 98-107 [facility] Eosinophils/100 WBC (Bld) 4.6 % 0-5 [facility] Glucose [Mass/Vol] 147 mg/dL 74-106 [facility] Comment on above: Fasting Glucose resu lt greater than or equal to 126 mg/dL suggests DIABETES MELLITUS per A.D.A. criteria. Neutrophils (Bld) [#/Vol] 7.2 10*3/uL 2.0-7.7 [facility] Neutrophils/100 WBC (Bld) 74.5 % 47-70 [facility] Potassium [Moles/Vol] 3.9 mmol/L 3.5-5.[address] [facility] Sodium [Moles/Vol] 140 mmol/L 136-145 [facility] WBC (Bld) [#/Vol] 9.7 10*3/uL 4.4-11.0 [facility] Blood erythrocytes count (nu mber/volume)Ordered By: Breanne Ruiz on 01-10-2023 RBC (Bld) [#/Vol] 4.98 10*6/uL 4.2-5.4 [facility] Blood hemoglobin measurement (mass/volume)Ordered By: Breanne Ruiz on 01-10-2023 Hemoglobin (Bld) [Mass/Vol] 13.4 g/dL 12.0-15.0 [facility] Blood lymphocytes/100 leukoc ytesOrdered By: Breanne Ruiz on 01-10-2023 Lymphocytes/100 WBC (Bld) 8.7 % 19-41 [facility] Blood monocytes/100 leukocyt esOrdered By: vannessa Ruiz on 01-10-2023 Monocytes/100 WBC (Bld) 10.3 % 0-10 [facility] Blood platelet mean volumeOr dered By: Breanne Ruiz on 01-10-2023 Platelet mean volume (Bld) [Entitic vol] 8.8 fL 6.2-12.0 [facility] Determination of erythrocyte mean corpuscular volume (MCV)Ordered By: Breanne Ruiz on 01-10-2023 MCV (RBC) [Entitic vol] 86.5 fL 81-99 [facility] Hematocrit Auto (Bld) [Volum e fraction]Ordered By: vannessa Ruiz on 01-10-2023 Hematocrit (Bld) [Volume fraction] 43.1 % 37-47 [facility] Laboratory - Chemistry and C hemistry - challengeOrdered By: Breanne Ruiz on 01-10-2023 CO2 [Moles/Vol] 24.0 mmol/L 21.0-32.0 [facility] Urea nitrogen/Creatinine [Mass ratio] 36.1 mg/mg 10-20 [facility] Laboratory - Hematology and Cell countsOrdered By: Breanne Ruiz on 01-10-2023 Erythrocyte distribution width (RBC) [Entitic vol] 48.4 fL 35.1-43.9 [facility] Erythrocyte distribution width (RBC) [Ratio] 15.3 % 11.6-14.6 [facility] Immature granulocytes/100 WBC (Bld) 0.900 % 0.0-0.9 [facility] Comment on above: IG% - Immature Granu locytes (promyelocytes, myelocytes and metamyelocytes) > 1% indicates that a LEFT SHIFT is Present. MCH (RBC) [Entitic mass] 26.9 pg 27.0-32.0 [facility] Nucleated RBC/100 WBC (Bld) [Ratio] 0 % 0-5 [facility] MCHC Auto (RBC) [Mass/Vol]Or dered By: Breanne Ruiz on 01-10-2023 MCHC (RBC) [Mass/Vol] 31.1 g/dL 32-[address] [facility] No Panel InformationOrdered By: Breanne Ruiz on 01-10-2023 Estimated GFR (MDRD) Amer 121 mL/min >60 [facility] Comment on above: GFR Calc Estimated GFR (MDRD) Non-Af Amer 100 mL/min >60 [facility] Comment on above: Non- GFR Calc Platelets bldOrdered By: Prashant Ruiz on 01-10-2023 Platelets (Bld) [#/Vol] 513 10*3/uL 150-450 [facility] Serum or plasma calcium jj urement (mass/volume)Ordered By: Breanne Ruiz on 01-10-2023 Calcium [Mass/Vol] 9.2 mg/dL 8.5-10.1 [facility] Serum or plasma creatinine m easurement (mass/volume)Ordered By: Breanne Ruiz on 01-10-2023 Creatinine [Mass/Vol] 0.64 mg/dL 0.55-1.[address] [facility] Comment on above: The validity of the calculated GFR & GFRAA in patients over 70 years has not been determined. Clinical correlation is essential. Serum or plasma urea nitroge n measurement (mass/volume)Ordered By: Breanne Ruiz on 01-10-2023 Urea nitrogen [Mass/Vol] 23 mg/dL 7-18 [facility] Thin prep Papanicolaou smear with manual screeningOrdered By: Breanne Ruiz on 01-10-2023 Thin prep Papanicolaou smear with manual screening 7 5-15 [facility] Absolute lymphocyte countOrd ered By: Breanne Ruiz on 12-27-2022 Lymphocytes Auto (Unsp spec) [#/Vol] 0.84 10*3/uL 0.83-4.51 [facility] Basophil percentageOrdered B y: Breanne Ruiz on 12-27-2022 Basophils/100 WBC (Bld) 1.3 % 0-1 [facility] Chloride [Moles/Vol] 108 mmol/L 98-107 [facility] Eosinophils/100 WBC (Bld) 4.3 % 0-5 [facility] Glucose [Mass/Vol] 178 mg/dL 74-106 [facility] Comment on above: Fasting Glucose resu lt greater than or equal to 126 mg/dL suggests DIABETES MELLITUS per A.D.A. criteria. Neutrophils (Bld) [#/Vol] 6.8 10*3/uL 2.0-7.7 [facility] Neutrophils/100 WBC (Bld) 73.8 % 47-70 [facility] Potassium [Moles/Vol] 3.9 mmol/L 3.5-5.[address] [facility] Sodium [Moles/Vol] 138 mmol/L 136-145 [facility] WBC (Bld) [#/Vol] 9.3 10*3/uL 4.4-11.0 [facility] Blood erythrocytes count (nu mber/volume)Ordered By: Breanne Ruiz on 12-27-2022 RBC (Bld) [#/Vol] 4.96 10*6/uL 4.2-5.4 [facility] Blood hemoglobin measurement (mass/volume)Ordered By: Breanne Ruiz on 12-27-2022 Hemoglobin (Bld) [Mass/Vol] 13.1 g/dL 12.0-15.0 [facility] Blood lymphocytes/100 leukoc ytesOrdered By: Breanne Ruiz on 12-27-2022 Lymphocytes/100 WBC (Bld) 9.1 % 19-41 [facility] Blood monocytes/100 leukocyt esOrdered By: Efadalbertoongchetan Ruiz on 12-27-2022 Monocytes/100 WBC (Bld) 10.9 % 0-10 [facility] Blood platelet mean volumeOr dered By: Breanne Ruiz on 12-27-2022 Platelet mean volume (Bld) [Entitic vol] 8.9 fL 6.2-12.0 [facility] Determination of erythrocyte mean corpuscular volume (MCV)Ordered By: Breanne Ruiz on 12-27-2022 MCV (RBC) [Entitic vol] 88.9 fL 81-99 [facility] Hematocrit Auto (Bld) [Volum e fraction]Ordered By: Breanne Ruiz on 12-27-2022 Hematocrit (Bld) [Volume fraction] 44.1 % 37-47 [facility] Laboratory - Chemistry and C hemistry - challengeOrdered By: Breanne Ruiz on 12-27-2022 CO2 [Moles/Vol] 24.0 mmol/L 21.0-32.0 [facility] Urea nitrogen/Creatinine [Mass ratio] 32.3 mg/mg 10-20 [facility] - Hematology and Cell countsOrdered By: Breanne Ruiz on 12-27-2022 Erythrocyte distribution width (RBC) [Entitic vol] 50.8 fL 35.1-43.9 [facility] Erythrocyte distribution width (RBC) [Ratio] 15.7 % 11.6-14.6 [facility] Immature granulocytes/100 WBC (Bld) 0.600 % 0.0-0.9 [facility] Comment on above: IG% - Immature Granu locytes (promyelocytes, myelocytes and metamyelocytes) > 1% indicates that a LEFT SHIFT is Present. MCH (RBC) [Entitic mass] 26.4 pg 27.0-32.0 [facility] Nucleated RBC/100 WBC (Bld) [Ratio] 0 % 0-5 [facility] MCHC Auto (RBC) [Mass/Vol]Or dered By: Braenne Ruiz on 12-27-2022 MCHC (RBC) [Mass/Vol] 29.7 g/dL 32-[address] [facility] No Panel InformationOrdered By: Breanne Ruiz on 12-27-2022 Estimated GFR (MDRD) Amer 101 mL/min >60 [facility] Comment on above: GFR Calc Estimated GFR (MDRD) Non-Af Amer 84 mL/min >60 [facility] Comment on above: Non- GFR Calc Platelets bldOrdered By: Prashant Ruiz on 12-27-2022 Platelets (Bld) [#/Vol] 491 10*3/uL 150-450 [facility] Serum or plasma calcium jj urement (mass/volume)Ordered By: Breanne Ruiz on 12-27-2022 Calcium [Mass/Vol] 9.3 mg/dL 8.5-10.1 [facility] Serum or plasma creatinine m easurement (mass/volume)Ordered By: Breanne Isaelhussain on 12-27-2022 Creatinine [Mass/Vol] 0.74 mg/dL 0.55-1.[address] [facility] Comment on above: The validity of the calculated GFR & GFRAA in patients over 70 years has not been determined. Clinical correlation is essential. Serum or plasma urea nitroge n measurement (mass/volume)Ordered By: Breanne Ruiz on 12-27-2022 Urea nitrogen [Mass/Vol] 24 mg/dL 7-18 [facility] Thin prep Papanicolaou smear with manual screeningOrdered By: [facility] on 12-27-2022 Thin prep Papanicolaou smear with manual screening 6 5-15 [facility] Absolute lymphocyte countOrd ered By: [facility] Kirklandbeverly on 12-13-2022 Lymphocytes Auto (Unsp spec) [#/Vol] 0.84 10*3/uL 0.83-4.51 [facility] Basophil percentageOrdered B y: Breanne Ruiz on 12-13-2022 Basophils/100 WBC (Bld) 1.2 % 0-1 [facility] Chloride [Moles/Vol] 108 mmol/L 98-107 [facility] Eosinophils/100 WBC (Bld) 4.5 % 0-5 [facility] Glucose [Mass/Vol] 150 mg/dL 74-106 [facility] Comment on above: Fasting Glucose resu lt greater than or equal to 126 mg/dL suggests DIABETES MELLITUS per A.D.A. criteria. Neutrophils (Bld) [#/Vol] 5.4 10*3/uL 2.0-7.7 [facility] Neutrophils/100 WBC (Bld) 71.5 % 47-70 [facility] Potassium [Moles/Vol] 3.8 mmol/L 3.5-5.[address] [facility] Sodium [Moles/Vol] 139 mmol/L 136-145 [facility] WBC (Bld) [#/Vol] 7.5 10*3/uL 4.4-11.0 [facility] Blood erythrocytes count (nu mber/volume)Ordered By: Breanne Ruiz on 12-13-2022 RBC (Bld) [#/Vol] 4.96 10*6/uL 4.2-5.4 [facility] Blood hemoglobin measurement (mass/volume)Ordered By: Breanne Ruiz on 12-13-2022 Hemoglobin (Bld) [Mass/Vol] 13.2 g/dL 12.0-15.0 [facility] Blood lymphocytes/100 leukoc ytesOrdered By: Breanne Ruiz on 12-13-2022 Lymphocytes/100 WBC (Bld) 11.2 % 19-41 [facility] Blood monocytes/100 leukocyt esOrdered By: Breanne Ruiz on 12-13-2022 Monocytes/100 WBC (Bld) 10.4 % 0-10 [facility] Blood platelet mean volumeOr dered By: Breanne Ruiz on 12-13-2022 Platelet mean volume (Bld) [Entitic vol] 8.7 fL 6.2-12.0 [facility] Determination of erythrocyte mean corpuscular volume (MCV)Ordered By: Breanne Ruiz on 12-13-2022 MCV (RBC) [Entitic vol] 87.1 fL 81-99 [facility] Hematocrit Auto (Bld) [Volum e fraction]Ordered By: Breanne Ruiz on 12-13-2022 Hematocrit (Bld) [Volume fraction] 43.2 % 37-47 [facility] Laboratory - Chemistry and C hemistry - challengeOrdered By: Breanne Ruiz on 12-13-2022 CO2 [Moles/Vol] 26.0 mmol/L 21.0-32.0 [facility] Urea nitrogen/Creatinine [Mass ratio] 31.7 mg/mg 10-20 [facility] Laboratory - Hematology and Cell countsOrdered By: Breanne Ruiz on 12-13-2022 Erythrocyte distribution width (RBC) [Entitic vol] 49.9 fL 35.1-43.9 [facility] Erythrocyte distribution width (RBC) [Ratio] 15.9 % 11.6-14.6 [facility] Immature granulocytes/100 WBC (Bld) 1.200 % 0.0-0.9 [facility] Comment on above: IG% - Immature Granu locytes (promyelocytes, myelocytes and metamyelocytes) > 1% indicates that a LEFT SHIFT is Present. MCH (RBC) [Entitic mass] 26.6 pg 27.0-32.0 [facility] Nucleated RBC/100 WBC (Bld) [Ratio] 0 % 0-5 [facility] MCHC Auto (RBC) [Mass/Vol]Or dered By: Breanne Ruiz on 12-13-2022 MCHC (RBC) [Mass/Vol] 30.6 g/dL 32-[address] [facility] No Panel InformationOrdered By: Breanne Ruiz on 12-13-2022 Estimated GFR (MDRD) Amer 122 mL/min >60 [facility] Comment on above: GFR Calc Estimated GFR (MDRD) Non-Af Amer 101 mL/min >60 [facility] Comment on above: Non- GFR Calc Platelets bldOrdered By: Prashant Ruiz on 12-13-2022 Platelets (Bld) [#/Vol] 502 10*3/uL 150-450 [facility] Serum or plasma calcium jj urement (mass/volume)Ordered By: Breanne Ruiz on 12-13-2022 Calcium [Mass/Vol] 9.2 mg/dL 8.5-10.1 [facility] Serum or plasma creatinine m easurement (mass/volume)Ordered By: Breanne Ruiz on 12-13-2022 Creatinine [Mass/Vol] 0.63 mg/dL 0.55-1.[address] [facility] Comment on above: The validity of the calculated GFR & GFRAA in patients over 70 years has not been determined. Clinical correlation is essential. Serum or plasma urea nitroge n measurement (mass/volume)Ordered By: Breanne Ruiz on 12-13-2022 Urea nitrogen [Mass/Vol] 20 mg/dL 7-18 [facility] Thin prep Papanicolaou smear with manual screeningOrdered By: Breanne Ruiz on 12-13-2022 Thin prep Papanicolaou smear with manual screening 5 5-15 [facility] Absolute lymphocyte countOrd ered By: Breanne Ruiz on 11-29-2022 Lymphocytes Auto (Unsp spec) [#/Vol] 0.94 10*3/uL 0.83-4.51 [facility] Basophil percentageOrdered B y: Breanne Ruiz on 11-29-2022 Basophils/100 WBC (Bld) 1.1 % 0-1 [facility] Chloride [Moles/Vol] 106 mmol/L 98-107 [facility] Eosinophils/100 WBC (Bld) 5.0 % 0-5 [facility] Glucose [Mass/Vol] 137 mg/dL 74-106 [facility] Comment on above: Fasting Glucose resu lt greater than or equal to 126 mg/dL suggests DIABETES MELLITUS per A.D.A. criteria. Neutrophils (Bld) [#/Vol] 6.1 10*3/uL 2.0-7.7 [facility] Neutrophils/100 WBC (Bld) 71.9 % 47-70 [facility] Potassium [Moles/Vol] 3.9 mmol/L 3.5-5.[address] [facility] Sodium [Moles/Vol] 138 mmol/L 136-145 [facility] WBC (Bld) [#/Vol] 8.4 10*3/uL 4.4-11.0 [facility] Blood erythrocytes count (nu mber/volume)Ordered By: Breanne Ruiz on 11-29-2022 RBC (Bld) [#/Vol] 5.05 10*6/uL 4.2-5.4 [facility] Blood hemoglobin measurement (mass/volume)Ordered By: Braenne Ruiz on 11-29-2022 Hemoglobin (Bld) [Mass/Vol] 13.5 g/dL 12.0-15.0 [facility] Blood lymphocytes/100 leukoc ytesOrdered By: Breanne Ruiz on 11-29-2022 Lymphocytes/100 WBC (Bld) 11.1 % 19-41 [facility] Blood monocytes/100 leukocyt esOrdered By: Breanne Ruiz on 11-29-2022 Monocytes/100 WBC (Bld) 10.3 % 0-10 [facility] Blood platelet mean volumeOr dered By: Breanne Ruiz on 11-29-2022 Platelet mean volume (Bld) [Entitic vol] 8.8 fL 6.2-12.0 [facility] Determination of erythrocyte mean corpuscular volume (MCV)Ordered By: adalbertonorth branchchetan Ruiz on 11-29-2022 MCV (RBC) [Entitic vol] 87.5 fL 81-99 [facility] Hematocrit Auto (Bld) [Volum e fraction]Ordered By: Breanne Ruiz on 11-29-2022 Hematocrit (Bld) [Volume fraction] 44.2 % 37-47 [facility] - Chemistry and C hemistry - challengeOrdered By: adalbertonorth branchchetan uRiz on 11-29-2022 CO2 [Moles/Vol] 23.0 mmol/L 21.0-32.0 [facility] Urea nitrogen/Creatinine [Mass ratio] 26.3 mg/mg 10-20 [facility] - Hematology and Cell countsOrdered By: Breanne Ruiz on 11-29-2022 Erythrocyte distribution width (RBC) [Entitic vol] 49.9 fL 35.1-43.9 [facility] Erythrocyte distribution width (RBC) [Ratio] 15.7 % 11.6-14.6 [facility] Immature granulocytes/100 WBC (Bld) 0.600 % 0.0-0.9 [facility] Comment on above: IG% - Immature Granu locytes (promyelocytes, myelocytes and metamyelocytes) > 1% indicates that a LEFT SHIFT is Present. MCH (RBC) [Entitic mass] 26.7 pg 27.0-32.0 [facility] Nucleated RBC/100 WBC (Bld) [Ratio] 0 % 0-5 [facility] MCHC Auto (RBC) [Mass/Vol]Or dered By: Breanne Ruiz on 11-29-2022 MCHC (RBC) [Mass/Vol] 30.5 g/dL 32-[address] [facility] No Panel InformationOrdered By: Breanne Ruiz on 11-29-2022 Estimated GFR (MDRD) Amer 104 mL/min >60 [facility] Comment on above: GFR Calc Estimated GFR (MDRD) Non-Af Amer 86 mL/min >60 [facility] Comment on above: Non- GFR Calc Platelets bldOrdered By: Prashant Ruiz on 11-29-2022 Platelets (Bld) [#/Vol] 479 10*3/uL 150-450 [facility] Serum or plasma calcium jj urement (mass/volume)Ordered By: Breanne Ruiz on 11-29-2022 Calcium [Mass/Vol] 9.4 mg/dL 8.5-10.1 [facility] Serum or plasma creatinine m easurement (mass/volume)Ordered By: Breanne Ruiz on 11-29-2022 Creatinine [Mass/Vol] 0.72 mg/dL 0.55-1.[address] [facility] Comment on above: The validity of the calculated GFR & GFRAA in patients over 70 years has not been determined. Clinical correlation is essential. Serum or plasma urea nitroge n measurement (mass/volume)Ordered By: Breanne Ruiz on 11-29-2022 Urea nitrogen [Mass/Vol] 19 mg/dL 7-18 [facility] Thin prep Papanicolaou smear with manual screeningOrdered By: Breanne Ruiz on 11-29-2022 Thin prep Papanicolaou smear with manual screening 9 5-15 [facility] Absolute lymphocyte countOrd ered By: Asad Jamison on 11-15-2022 Lymphocytes Auto (Unsp spec) [#/Vol] 1.08 10*3/uL 0.83-4.51 [facility] Basophil percentageOrdered B y: Asad Jamison on 11-15-2022 Basophils/100 WBC (Bld) 0.9 % 0-1 [facility] Chloride [Moles/Vol] 106 mmol/L 98-107 [facility] Eosinophils/100 WBC (Bld) 2.2 % 0-5 [facility] Glucose [Mass/Vol] 120 mg/dL 74-106 [facility] Comment on above: Fasting Glucose resu lt from 100 to 125 mg/dL suggests IMPAIRED HOMEOSTASIS per A.D.A. criteria. Neutrophils (Bld) [#/Vol] 8.1 10*3/uL 2.0-7.7 [facility] Neutrophils/100 WBC (Bld) 75.6 % 47-70 [facility] Potassium [Moles/Vol] 4.1 mmol/L 3.5-5.[address] [facility] Sodium [Moles/Vol] 141 mmol/L 136-145 [facility] WBC (Bld) [#/Vol] 10.7 10*3/uL 4.4-11.0 [facility] Blood erythrocytes count (nu mber/volume)Ordered By: Asad Jamison on 11-15-2022 RBC (Bld) [#/Vol] 5.54 10*6/uL 4.2-5.4 [facility] Blood hemoglobin measurement (mass/volume)Ordered By: Asad Jamison on 11-15-2022 Hemoglobin (Bld) [Mass/Vol] 14.8 g/dL 12.0-15.0 [facility] Blood lymphocytes/100 leukoc ytesOrdered By: Asad Jamison on 11-15-2022 Lymphocytes/100 WBC (Bld) 10.1 % 19-41 [facility] Blood monocytes/100 leukocyt esOrdered By: Asad Jamison on 11-15-2022 Monocytes/100 WBC (Bld) 9.6 % 0-10 [facility] Blood platelet mean volumeOr dered By: Asad Jamison on 11-15-2022 Platelet mean volume (Bld) [Entitic vol] 9.1 fL 6.2-12.0 [facility] Determination of erythrocyte mean corpuscular volume (MCV)Ordered By: Asad Jamison on 11-15-2022 MCV (RBC) [Entitic vol] 87.9 fL 81-99 [facility] Hematocrit Auto (Bld) [Volum e fraction]Ordered By: Asad Jamison on 11-15-2022 Hematocrit (Bld) [Volume fraction] 48.7 % 37-47 [facility] Laboratory - Chemistry and C hemistry - challengeOrdered By: Asad Jamison on 11-15-2022 CO2 [Moles/Vol] 27.0 mmol/L 21.0-32.0 [facility] Urea nitrogen/Creatinine [Mass ratio] 35.6 mg/mg 10-20 [facility] Laboratory - Hematology and Cell countsOrdered By: Asad Jamison on 11-15-2022 Erythrocyte distribution width (RBC) [Entitic vol] 50.8 fL 35.1-43.9 [facility] Erythrocyte distribution width (RBC) [Ratio] 15.9 % 11.6-14.6 [facility] Immature granulocytes/100 WBC (Bld) 1.600 % 0.0-0.9 [facility] Comment on above: IG% - Immature Granu locytes (promyelocytes, myelocytes and metamyelocytes) > 1% indicates that a LEFT SHIFT is Present. MCH (RBC) [Entitic mass] 26.7 pg 27.0-32.0 [facility] Nucleated RBC/100 WBC (Bld) [Ratio] 0 % 0-5 [facility] MCHC Auto (RBC) [Mass/Vol]Or dered By: Asad Jamison on 11-15-2022 MCHC (RBC) [Mass/Vol] 30.4 g/dL 32-[address] [facility] No Panel InformationOrdered By: Asad Jamison on 11-15-2022 Estimated GFR (MDRD) Amer 99 mL/min >60 [facility] Comment on above: GFR Calc Estimated GFR (MDRD) Non-Af Amer 81 mL/min >60 [facility] Comment on above: Non- GFR Calc Platelets bldOrdered By: Gonzales Jamison on 11-15-2022 Platelets (Bld) [#/Vol] 540 10*3/uL 150-450 [facility] Serum or plasma calcium jj urement (mass/volume)Ordered By: Asad Jamison on 11-15-2022 Calcium [Mass/Vol] 9.5 mg/dL 8.5-10.1 [facility] Serum or plasma creatinine m easurement (mass/volume)Ordered By: Asad Jamison on 11-15-2022 Creatinine [Mass/Vol] 0.76 mg/dL 0.55-1.[address] [facility] Comment on above: The validity of the calculated GFR & GFRAA in patients over 70 years has not been determined. Clinical correlation is essential. Serum or plasma urea nitroge n measurement (mass/volume)Ordered By: Asad Jamison on 11-15-2022 Urea nitrogen [Mass/Vol] 27 mg/dL 7-18 [facility] Thin prep Papanicolaou smear with manual screeningOrdered By: Asad Jamison on 11-15-2022 Thin prep Papanicolaou smear with manual screening 8 5-15 [facility] Absolute lymphocyte countOrd ered By: Asad Jamison on 11-01-2022 Lymphocytes Auto (Unsp spec) [#/Vol] 0.81 10*3/uL 0.83-4.51 [facility] Basophil percentageOrdered B y: Asad Jamison on 11-01-2022 Basophils/100 WBC (Bld) 1.0 % 0-1 [facility] Chloride [Moles/Vol] 107 mmol/L 98-107 [facility] Eosinophils/100 WBC (Bld) 4.8 % 0-5 [facility] Glucose [Mass/Vol] 135 mg/dL 74-106 [facility] Comment on above: Fasting Glucose resu lt greater than or equal to 126 mg/dL suggests DIABETES MELLITUS per A.D.A. criteria. Neutrophils (Bld) [#/Vol] 5.9 10*3/uL 2.0-7.7 [facility] Neutrophils/100 WBC (Bld) 73.2 % 47-70 [facility] Potassium [Moles/Vol] 3.9 mmol/L 3.5-5.[address] [facility] Sodium [Moles/Vol] 141 mmol/L 136-145 [facility] WBC (Bld) [#/Vol] 8.1 10*3/uL 4.4-11.0 [facility] Blood erythrocytes count (nu mber/volume)Ordered By: Asad Jamison on 11-01-2022 RBC (Bld) [#/Vol] 5.16 10*6/uL 4.2-5.4 [facility] Blood hemoglobin measurement (mass/volume)Ordered By: Asad Jamison on 11-01-2022 Hemoglobin (Bld) [Mass/Vol] 13.3 g/dL 12.0-15.0 [facility] Blood lymphocytes/100 leukoc ytesOrdered By: Asad Jamison on 11-01-2022 Lymphocytes/100 WBC (Bld) 10.0 % 19-41 [facility] Blood monocytes/100 leukocyt esOrdered By: Asad Jamison on 11-01-2022 Monocytes/100 WBC (Bld) 9.9 % 0-10 [facility] Blood platelet mean volumeOr dered By: Asad Jamison on 11-01-2022 Platelet mean volume (Bld) [Entitic vol] 8.9 fL 6.2-12.0 [facility] Determination of erythrocyte mean corpuscular volume (MCV)Ordered By: Asad Jamison on 11-01-2022 MCV (RBC) [Entitic vol] 87.4 fL 81-99 [facility] Hematocrit Auto (Bld) [Volum e fraction]Ordered By: Asad Jamison on 11-01-2022 Hematocrit (Bld) [Volume fraction] 45.1 % 37-47 [facility] Laboratory - Chemistry and C hemistry - challengeOrdered By: Asad Jamison on 11-01-2022 CO2 [Moles/Vol] 25.0 mmol/L 21.0-32.0 [facility] Urea nitrogen/Creatinine [Mass ratio] 32.7 mg/mg 10-20 [facility] Laboratory - Hematology and Cell countsOrdered By: Asad Jamison on 11-01-2022 Erythrocyte distribution width (RBC) [Entitic vol] 47.9 fL 35.1-43.9 [facility] Erythrocyte distribution width (RBC) [Ratio] 15.1 % 11.6-14.6 [facility] Immature granulocytes/100 WBC (Bld) 1.100 % 0.0-0.9 [facility] Comment on above: IG% - Immature Granu locytes (promyelocytes, myelocytes and metamyelocytes) > 1% indicates that a LEFT SHIFT is Present. MCH (RBC) [Entitic mass] 25.8 pg 27.0-32.0 [facility] Nucleated RBC/100 WBC (Bld) [Ratio] 0 % 0-5 [facility] MCHC Auto (RBC) [Mass/Vol]Or dered By: Asad Jamison on 11-01-2022 MCHC (RBC) [Mass/Vol] 29.5 g/dL 32-[address] [facility] No Panel InformationOrdered By: Asad Jamison on 11-01-2022 Estimated GFR (MDRD) Amer 108 mL/min >60 [facility] Comment on above: GFR Calc Estimated GFR (MDRD) Non-Af Amer 89 mL/min >60 [facility] Comment on above: Non- GFR Calc Platelets bldOrdered By: Gonzales Jamison on 11-01-2022 Platelets (Bld) [#/Vol] 467 10*3/uL 150-450 [facility] Serum or plasma calcium jj urement (mass/volume)Ordered By: Asad Jamison on 11-01-2022 Calcium [Mass/Vol] 9.3 mg/dL 8.5-10.1 [facility] Serum or plasma creatinine m easurement (mass/volume)Ordered By: Asad Jamison on 11-01-2022 Creatinine [Mass/Vol] 0.70 mg/dL 0.55-1.[address] [facility] Comment on above: The validity of the calculated GFR & GFRAA in patients over 70 years has not been determined. Clinical correlation is essential. Serum or plasma urea nitroge n measurement (mass/volume)Ordered By: Asad Jamison on 11-01-2022 Urea nitrogen [Mass/Vol] 23 mg/dL 7-18 [facility] Thin prep Papanicolaou smear with manual screeningOrdered By: Asad Jamison on 11-01-2022 Thin prep Papanicolaou smear with manual screening 9 5-15 [facility] Absolute lymphocyte countOrd ered By: Asda Jamison on 10-18-2022 Lymphocytes Auto (Unsp spec) [#/Vol] 1.14 10*3/uL 0.83-4.51 [facility] Basophil percentageOrdered B y: Asad Jamison on 10-18-2022 Basophils/100 WBC (Bld) 1.1 % 0-1 [facility] Chloride [Moles/Vol] 110 mmol/L 98-107 [facility] Eosinophils/100 WBC (Bld) 5.0 % 0-5 [facility] Glucose [Mass/Vol] 179 mg/dL 74-106 [facility] Comment on above: Fasting Glucose resu lt greater than or equal to 126 mg/dL suggests DIABETES MELLITUS per A.D.A. criteria. Neutrophils (Bld) [#/Vol] 6.5 10*3/uL 2.0-7.7 [facility] Neutrophils/100 WBC (Bld) 69.3 % 47-70 [facility] Potassium [Moles/Vol] 4.0 mmol/L 3.5-5.[address] [facility] Sodium [Moles/Vol] 140 mmol/L 136-145 [facility] WBC (Bld) [#/Vol] 9.4 10*3/uL 4.4-11.0 [facility] Blood erythrocytes count (nu mber/volume)Ordered By: Asad Jamison on 10-18-2022 RBC (Bld) [#/Vol] 5.10 10*6/uL 4.2-5.4 [facility] Blood hemoglobin measurement (mass/volume)Ordered By: Asad Jamison on 10-18-2022 Hemoglobin (Bld) [Mass/Vol] 13.6 g/dL 12.0-15.0 [facility] Blood lymphocytes/100 leukoc ytesOrdered By: Asad Jamison on 10-18-2022 Lymphocytes/100 WBC (Bld) 12.1 % 19-41 [facility] Blood monocytes/100 leukocyt esOrdered By: Asad Jamison on 10-18-2022 Monocytes/100 WBC (Bld) 11.1 % 0-10 [facility] Blood platelet mean volumeOr dered By: Asad Jamison on 10-18-2022 Platelet mean volume (Bld) [Entitic vol] 8.6 fL 6.2-12.0 [facility] Determination of erythrocyte mean corpuscular volume (MCV)Ordered By: Asad Jamison on 10-18-2022 MCV (RBC) [Entitic vol] 87.5 fL 81-99 [facility] Hematocrit Auto (Bld) [Volum e fraction]Ordered By: Asad Jamison on 10-18-2022 Hematocrit (Bld) [Volume fraction] 44.6 % 37-47 [facility] Laboratory - Chemistry and C hemistry - challengeOrdered By: Asad Jamison on 10-18-2022 CO2 [Moles/Vol] 22.0 mmol/L 21.0-32.0 [facility] Urea nitrogen/Creatinine [Mass ratio] 28.1 mg/mg 10-20 [facility] Laboratory - Hematology and Cell countsOrdered By: Asad Jamison on 10-18-2022 Erythrocyte distribution width (RBC) [Entitic vol] 46.2 fL 35.1-43.9 [facility] Erythrocyte distribution width (RBC) [Ratio] 14.3 % 11.6-14.6 [facility] Immature granulocytes/100 WBC (Bld) 1.400 % 0.0-0.9 [facility] Comment on above: IG% - Immature Granu locytes (promyelocytes, myelocytes and metamyelocytes) > 1% indicates that a LEFT SHIFT is Present. MCH (RBC) [Entitic mass] 26.7 pg 27.0-32.0 [facility] Nucleated RBC/100 WBC (Bld) [Ratio] 0 % 0-5 [facility] MCHC Auto (RBC) [Mass/Vol]Or dered By: Asad Jamison on 10-18-2022 MCHC (RBC) [Mass/Vol] 30.5 g/dL 32-[address] [facility] No Panel InformationOrdered By: Asad Jamison on 10-18-2022 Estimated GFR (MDRD) Amer 106 mL/min >60 [facility] Comment on above: GFR Calc Estimated GFR (MDRD) Non-Af Amer 88 mL/min >60 [facility] Comment on above: Non- GFR Calc Platelets bldOrdered By: Gonzales Jamison on 10-18-2022 Platelets (Bld) [#/Vol] 622 10*3/uL 150-450 [facility] Serum or plasma calcium jj urement (mass/volume)Ordered By: Asad Jamison on 10-18-2022 Calcium [Mass/Vol] 9.4 mg/dL 8.5-10.1 [facility] Serum or plasma creatinine m easurement (mass/volume)Ordered By: Asad Jamison on 10-18-2022 Creatinine [Mass/Vol] 0.71 mg/dL 0.55-1.[address] [facility] Comment on above: The validity of the calculated GFR & GFRAA in patients over 70 years has not been determined. Clinical correlation is essential. Serum or plasma urea nitroge n measurement (mass/volume)Ordered By: Asad Jamison on 10-18-2022 Urea nitrogen [Mass/Vol] 20 mg/dL 7-18 [facility] Thin prep Papanicolaou smear with manual screeningOrdered By: Asad Jamison on 10-18-2022 Thin prep Papanicolaou smear with manual screening 8 5-15 [facility] Absolute lymphocyte countOrd ered By: Asad Jamison on 10-04-2022 Lymphocytes Auto (Unsp spec) [#/Vol] 1.09 10*3/uL 0.83-4.51 [facility] Basophil percentageOrdered B y: Asad Jamison on 10-04-2022 Basophils/100 WBC (Bld) 1.2 % 0-1 [facility] Chloride [Moles/Vol] 107 mmol/L 98-107 [facility] Eosinophils/100 WBC (Bld) 4.5 % 0-5 [facility] Glucose [Mass/Vol] 123 mg/dL 74-106 [facility] Comment on above: Fasting Glucose resu lt from 100 to 125 mg/dL suggests IMPAIRED HOMEOSTASIS per A.D.A. criteria. Neutrophils (Bld) [#/Vol] 6.5 10*3/uL 2.0-7.7 [facility] Neutrophils/100 WBC (Bld) 71.3 % 47-70 [facility] Potassium [Moles/Vol] 3.9 mmol/L 3.5-5.[address] [facility] Sodium [Moles/Vol] 140 mmol/L 136-145 [facility] WBC (Bld) [#/Vol] 9.1 10*3/uL 4.4-11.0 [facility] Blood erythrocytes count (nu mber/volume)Ordered By: Asad Jamison on 10-04-2022 RBC (Bld) [#/Vol] 5.46 10*6/uL 4.2-5.4 [facility] Blood hemoglobin measurement (mass/volume)Ordered By: Asad Jamison on 10-04-2022 Hemoglobin (Bld) [Mass/Vol] 14.4 g/dL 12.0-15.0 [facility] Blood lymphocytes/100 leukoc ytesOrdered By: Asad Jamison on 10-04-2022 Lymphocytes/100 WBC (Bld) 12.0 % 19-41 [facility] Blood monocytes/100 leukocyt esOrdered By: Asad Jamison on 10-04-2022 Monocytes/100 WBC (Bld) 10.0 % 0-10 [facility] Blood platelet mean volumeOr dered By: Asad Jamison on 10-04-2022 Platelet mean volume (Bld) [Entitic vol] 8.4 fL 6.2-12.0 [facility] Determination of erythrocyte mean corpuscular volume (MCV)Ordered By: Asad Jamison on 10-04-2022 MCV (RBC) [Entitic vol] 86.1 fL 81-99 [facility] Hematocrit Auto (Bld) [Volum e fraction]Ordered By: Asad Jamison on 10-04-2022 Hematocrit (Bld) [Volume fraction] 47.0 % 37-47 [facility] Laboratory - Chemistry and C hemistry - challengeOrdered By: Asad Jamison on 10-04-2022 CO2 [Moles/Vol] 25.0 mmol/L 21.0-32.0 [facility] Urea nitrogen/Creatinine [Mass ratio] 34.6 mg/mg 10-20 [facility] Laboratory - Hematology and Cell countsOrdered By: Asad Jamison on 10-04-2022 Erythrocyte distribution width (RBC) [Entitic vol] 44.2 fL 35.1-43.9 [facility] Erythrocyte distribution width (RBC) [Ratio] 14.2 % 11.6-14.6 [facility] Immature granulocytes/100 WBC (Bld) 1.000 % 0.0-0.9 [facility] Comment on above: IG% - Immature Granu locytes (promyelocytes, myelocytes and metamyelocytes) > 1% indicates that a LEFT SHIFT is Present. MCH (RBC) [Entitic mass] 26.4 pg 27.0-32.0 [facility] Nucleated RBC/100 WBC (Bld) [Ratio] 0 % 0-5 [facility] MCHC Auto (RBC) [Mass/Vol]Or dered By: Asad Jamison on 10-04-2022 MCHC (RBC) [Mass/Vol] 30.6 g/dL 32-[address] [facility] No Panel InformationOrdered By: Asad Jamison on 10-04-2022 Estimated GFR (MDRD) Amer 115 mL/min >60 [facility] Comment on above: GFR Calc Estimated GFR (MDRD) Non-Af Amer 95 mL/min >60 [facility] Comment on above: Non- GFR Calc Platelets bldOrdered By: Gonzales Jamison on 10-04-2022 Platelets (Bld) [#/Vol] 566 10*3/uL 150-450 [facility] Serum or plasma calcium jj urement (mass/volume)Ordered By: Asad Jamison on 10-04-2022 Calcium [Mass/Vol] 9.8 mg/dL 8.5-10.1 [facility] Serum or plasma creatinine m easurement (mass/volume)Ordered By: Asad Jamison on 10-04-2022 Creatinine [Mass/Vol] 0.66 mg/dL 0.55-1.[address] [facility] Comment on above: The validity of the calculated GFR & GFRAA in patients over 70 years has not been determined. Clinical correlation is essential. Serum or plasma urea nitroge n measurement (mass/volume)Ordered By: Asad Jamison on 10-04-2022 Urea nitrogen [Mass/Vol] 23 mg/dL 7-18 [facility] Thin prep Papanicolaou smear with manual screeningOrdered By: Asad Jamison on 10-04-2022 Thin prep Papanicolaou smear with manual screening 8 5-15 [facility] Absolute lymphocyte countOrd ered By: Asad Jamison on 09-20-2022 Lymphocytes Auto (Unsp spec) [#/Vol] 1.20 10*3/uL 0.83-4.51 [facility] Basophil percentageOrdered B y: Asad Jamison on 09-20-2022 Basophils/100 WBC (Bld) 1.1 % 0-1 [facility] Chloride [Moles/Vol] 110 mmol/L 98-107 [facility] Eosinophils/100 WBC (Bld) 5.3 % 0-5 [facility] Glucose [Mass/Vol] 129 mg/dL 74-106 [facility] Comment on above: Fasting Glucose resu lt greater than or equal to 126 mg/dL suggests DIABETES MELLITUS per A.D.A. criteria. Neutrophils (Bld) [#/Vol] 7.2 10*3/uL 2.0-7.7 [facility] Neutrophils/100 WBC (Bld) 71.4 % 47-70 [facility] Potassium [Moles/Vol] 4.0 mmol/L 3.5-5.[address] [facility] Sodium [Moles/Vol] 139 mmol/L 136-145 [facility] WBC (Bld) [#/Vol] 10.0 10*3/uL 4.4-11.0 [facility] Blood erythrocytes count (nu mber/volume)Ordered By: Asad Jamison on 09-20-2022 RBC (Bld) [#/Vol] 4.97 10*6/uL 4.2-5.4 [facility] Blood hemoglobin measurement (mass/volume)Ordered By: Asad Jamison on 09-20-2022 Hemoglobin (Bld) [Mass/Vol] 13.4 g/dL 12.0-15.0 [facility] Blood lymphocytes/100 leukoc ytesOrdered By: Asad Jamison on 09-20-2022 Lymphocytes/100 WBC (Bld) 12.0 % 19-41 [facility] Blood monocytes/100 leukocyt esOrdered By: Asad Jamison on 09-20-2022 Monocytes/100 WBC (Bld) 9.3 % 0-10 [facility] Blood platelet mean volumeOr dered By: Asad Jamison on 09-20-2022 Platelet mean volume (Bld) [Entitic vol] 8.7 fL 6.2-12.0 [facility] Determination of erythrocyte mean corpuscular volume (MCV)Ordered By: Asad Jamison on 09-20-2022 MCV (RBC) [Entitic vol] 88.3 fL 81-99 [facility] Hematocrit Auto (Bld) [Volum e fraction]Ordered By: Asad Jamison on 09-20-2022 Hematocrit (Bld) [Volume fraction] 43.9 % 37-47 [facility] Laboratory - Chemistry and C hemistry - challengeOrdered By: Asad aJmison on 09-20-2022 CO2 [Moles/Vol] 25.0 mmol/L 21.0-32.0 [facility] Urea nitrogen/Creatinine [Mass ratio] 41.7 mg/mg 10-20 [facility] Laboratory - Hematology and Cell countsOrdered By: Asad Jamison on 09-20-2022 Erythrocyte distribution width (RBC) [Entitic vol] 45.1 fL 35.1-43.9 [facility] Erythrocyte distribution width (RBC) [Ratio] 14.2 % 11.6-14.6 [facility] Immature granulocytes/100 WBC (Bld) 0.900 % 0.0-0.9 [facility] Comment on above: IG% - Immature Granu locytes (promyelocytes, myelocytes and metamyelocytes) > 1% indicates that a LEFT SHIFT is Present. MCH (RBC) [Entitic mass] 27.0 pg 27.0-32.0 [facility] Nucleated RBC/100 WBC (Bld) [Ratio] 0 % 0-5 [facility] MCHC Auto (RBC) [Mass/Vol]Or dered By: Asad Jamison on 09-20-2022 MCHC (RBC) [Mass/Vol] 30.5 g/dL 32-[address] [facility] No Panel InformationOrdered By: Asad Jamison on 09-20-2022 Estimated GFR (MDRD) Amer 129 mL/min >60 [facility] Comment on above: GFR Calc Estimated GFR (MDRD) Non-Af Amer 107 mL/min >60 [facility] Comment on above: Non- GFR Calc Platelets bldOrdered By: Gonzales Jamison on 09-20-2022 Platelets (Bld) [#/Vol] 533 10*3/uL 150-450 [facility] Serum or plasma calcium jj urement (mass/volume)Ordered By: Asad Jamison on 09-20-2022 Calcium [Mass/Vol] 9.4 mg/dL 8.5-10.1 [facility] Serum or plasma creatinine m easurement (mass/volume)Ordered By: Asad Jamison on 09-20-2022 Creatinine [Mass/Vol] 0.60 mg/dL 0.55-1.[address] [facility] Comment on above: The validity of the calculated GFR & GFRAA in patients over 70 years has not been determined. Clinical correlation is essential. Serum or plasma urea nitroge n measurement (mass/volume)Ordered By: Asad Jamison on 09-20-2022 Urea nitrogen [Mass/Vol] 25 mg/dL -18 [facility] Thin prep Papanicolaou smear with manual screeningOrdered By: Asad Jamison on 09-20-2022 Thin prep Papanicolaou smear with manual screening 4 5-15 [facility] Absolute lymphocyte countOrd ered By: Asad Jamison on 09-06-2022 Lymphocytes Auto (Unsp spec) [#/Vol] 0.97 10*3/uL 0.83-4.51 [facility] Basophil percentageOrdered B y: Asad Jamison on 09-06-2022 Basophils/100 WBC (Bld) 1.0 % 0-1 [facility] Chloride [Moles/Vol] 107 mmol/L 98-107 [facility] Eosinophils/100 WBC (Bld) 4.5 % 0-5 [facility] Glucose [Mass/Vol] 112 mg/dL 74-106 [facility] Comment on above: Fasting Glucose resu lt from 100 to 125 mg/dL suggests IMPAIRED HOMEOSTASIS per A.D.A. criteria. Neutrophils (Bld) [#/Vol] 6.2 10*3/uL 2.0-7.7 [facility] Neutrophils/100 WBC (Bld) 72.2 % 47-70 [facility] Potassium [Moles/Vol] 3.7 mmol/L 3.5-5.[address] [facility] Sodium [Moles/Vol] 138 mmol/L 136-145 [facility] WBC (Bld) [#/Vol] 8.6 10*3/uL 4.4-11.0 [facility] Blood erythrocytes count (nu mber/volume)Ordered By: Aasd Jamison on 09-06-2022 RBC (Bld) [#/Vol] 5.05 10*6/uL 4.2-5.4 [facility] Blood hemoglobin measurement (mass/volume)Ordered By: Asad Jamison on 09-06-2022 Hemoglobin (Bld) [Mass/Vol] 13.6 g/dL 12.0-15.0 [facility] Blood lymphocytes/100 leukoc ytesOrdered By: Asad Jamison on 09-06-2022 Lymphocytes/100 WBC (Bld) 11.3 % 19-41 [facility] Blood monocytes/100 leukocyt esOrdered By: Asad Jamison on 09-06-2022 Monocytes/100 WBC (Bld) 10.4 % 0-10 [facility] Blood platelet mean volumeOr dered By: Asad Jamison on 09-06-2022 Platelet mean volume (Bld) [Entitic vol] 8.4 fL 6.2-12.0 [facility] Determination of erythrocyte mean corpuscular volume (MCV)Ordered By: Asad Jamison on 09-06-2022 MCV (RBC) [Entitic vol] 87.7 fL 81-99 [facility] Hematocrit Auto (Bld) [Volum e fraction]Ordered By: Asad Jamison on 09-06-2022 Hematocrit (Bld) [Volume fraction] 44.3 % 37-47 [facility] Laboratory - Chemistry and C hemistry - challengeOrdered By: Asad Jamison on 09-06-2022 CO2 [Moles/Vol] 25.0 mmol/L 21.0-32.0 [facility] Urea nitrogen/Creatinine [Mass ratio] 30.4 mg/mg 10-20 [facility] Laboratory - Hematology and Cell countsOrdered By: Asad Jamison on 09-06-2022 Erythrocyte distribution width (RBC) [Entitic vol] 45.9 fL 35.1-43.9 [facility] Erythrocyte distribution width (RBC) [Ratio] 14.3 % 11.6-14.6 [facility] Immature granulocytes/100 WBC (Bld) 0.600 % 0.0-0.9 [facility] Comment on above: IG% - Immature Granu locytes (promyelocytes, myelocytes and metamyelocytes) > 1% indicates that a LEFT SHIFT is Present. MCH (RBC) [Entitic mass] 26.9 pg 27.0-32.0 [facility] Nucleated RBC/100 WBC (Bld) [Ratio] 0 % 0-5 [facility] MCHC Auto (RBC) [Mass/Vol]Or dered By: Asad Jamison on 09-06-2022 MCHC (RBC) [Mass/Vol] 30.7 g/dL 32-[address] [facility] No Panel InformationOrdered By: Asad Jamison on 09-06-2022 Estimated GFR (MDRD) Amer 116 mL/min >60 [facility] Comment on above: GFR Calc Estimated GFR (MDRD) Non-Af Amer 96 mL/min >60 [facility] Comment on above: Non- GFR Calc Platelets bldOrdered By: Gonzales Jamison on 09-06-2022 Platelets (Bld) [#/Vol] 484 10*3/uL 150-450 [facility] Serum or plasma calcium jj urement (mass/volume)Ordered By: Aasd Jamison on 09-06-2022 Calcium [Mass/Vol] 9.4 mg/dL 8.5-10.1 [facility] Serum or plasma creatinine m easurement (mass/volume)Ordered By: Asad Jamison on 09-06-2022 Creatinine [Mass/Vol] 0.66 mg/dL 0.55-1.[address] [facility] Comment on above: The validity of the calculated GFR & GFRAA in patients over 70 years has not been determined. Clinical correlation is essential. Serum or plasma urea nitroge n measurement (mass/volume)Ordered By: Asad Jamison on 09-06-2022 Urea nitrogen [Mass/Vol] 20 mg/dL 7-18 [facility] Thin prep Papanicolaou smear with manual screeningOrdered By: Asad Jamison on 09-06-2022 Thin prep Papanicolaou smear with manual screening 6 5-15 [facility] Absolute lymphocyte countOrd ered By: Asad Jamison on 08-23-2022 Lymphocytes Auto (Unsp spec) [#/Vol] 1.01 10*3/uL 0.83-4.51 [facility] Basophil percentageOrdered B y: Asad Jamison on 08-23-2022 Basophils/100 WBC (Bld) 1.6 % 0-1 [facility] Chloride [Moles/Vol] 106 mmol/L 98-107 [facility] Eosinophils/100 WBC (Bld) 5.7 % 0-5 [facility] Glucose [Mass/Vol] 129 mg/dL 74-106 [facility] Comment on above: Fasting Glucose resu lt greater than or equal to 126 mg/dL suggests DIABETES MELLITUS per A.D.A. criteria. Neutrophils (Bld) [#/Vol] 4.6 10*3/uL 2.0-7.7 [facility] Neutrophils/100 WBC (Bld) 65.1 % 47-70 [facility] Potassium [Moles/Vol] 4.1 mmol/L 3.5-5.[address] [facility] Sodium [Moles/Vol] 141 mmol/L 136-145 [facility] WBC (Bld) [#/Vol] 7.0 10*3/uL 4.4-11.0 [facility] Blood erythrocytes count (nu mber/volume)Ordered By: Asad Jamison on 08-23-2022 RBC (Bld) [#/Vol] 5.08 10*6/uL 4.2-5.4 [facility] Blood hemoglobin measurement (mass/volume)Ordered By: Asad Jamison on 08-23-2022 Hemoglobin (Bld) [Mass/Vol] 13.7 g/dL 12.0-15.0 [facility] Blood lymphocytes/100 leukoc ytesOrdered By: Asad Jamison on 08-23-2022 Lymphocytes/100 WBC (Bld) 14.4 % 19-41 [facility] Blood monocytes/100 leukocyt esOrdered By: Asad Jamison on 08-23-2022 Monocytes/100 WBC (Bld) 12.5 % 0-10 [facility] Blood platelet mean volumeOr dered By: Asad Jamison on 08-23-2022 Platelet mean volume (Bld) [Entitic vol] 9.1 fL 6.2-12.0 [facility] Determination of erythrocyte mean corpuscular volume (MCV)Ordered By: Asad Jamison on 08-23-2022 MCV (RBC) [Entitic vol] 88.4 fL 81-99 [facility] Hematocrit Auto (Bld) [Volum e fraction]Ordered By: Asad Jamison on 08-23-2022 Hematocrit (Bld) [Volume fraction] 44.9 % 37-47 [facility] - Chemistry and C hemistry - challengeOrdered By: Asad Jamison on 08-23-2022 CO2 [Moles/Vol] 26.0 mmol/L 21.0-32.0 [facility] Urea nitrogen/Creatinine [Mass ratio] 38.0 mg/mg 10-20 [facility] - Hematology and Cell countsOrdered By: Asad Jamison on 08-23-2022 Erythrocyte distribution width (RBC) [Entitic vol] 45.2 fL 35.1-43.9 [facility] Erythrocyte distribution width (RBC) [Ratio] 14.1 % 11.6-14.6 [facility] Immature granulocytes/100 WBC (Bld) 0.700 % 0.0-0.9 [facility] Comment on above: IG% - Immature Granu locytes (promyelocytes, myelocytes and metamyelocytes) > 1% indicates that a LEFT SHIFT is Present. MCH (RBC) [Entitic mass] 27.0 pg 27.0-32.0 [facility] Nucleated RBC/100 WBC (Bld) [Ratio] 0 % 0-5 [facility] MCHC Auto (RBC) [Mass/Vol]Or dered By: Asad Jamison on 08-23-2022 MCHC (RBC) [Mass/Vol] 30.5 g/dL 32-[address] [facility] No Panel InformationOrdered By: Asad Jamison on 08-23-2022 Estimated GFR (MDRD) Amer 128 mL/min >60 [facility] Comment on above: GFR Calc Estimated GFR (MDRD) Non-Af Amer 106 mL/min >60 [facility] Comment on above: Non- GFR Calc Platelets bldOrdered By: Gonzales Jamison on 08-23-2022 Platelets (Bld) [#/Vol] 504 10*3/uL 150-450 [facility] Serum or plasma calcium jj urement (mass/volume)Ordered By: Asad Jamison on 08-23-2022 Calcium [Mass/Vol] 9.5 mg/dL 8.5-10.1 [facility] Serum or plasma creatinine m easurement (mass/volume)Ordered By: Asad Jamison on 08-23-2022 Creatinine [Mass/Vol] 0.60 mg/dL 0.55-1.[address] [facility] Comment on above: The validity of the calculated GFR & GFRAA in patients over 70 years has not been determined. Clinical correlation is essential. Serum or plasma urea nitroge n measurement (mass/volume)Ordered By: Asad Jamison on 08-23-2022 Urea nitrogen [Mass/Vol] 23 mg/dL 7-18 [facility] Thin prep Papanicolaou smear with manual screeningOrdered By: Asad Jamison on 08-23-2022 Thin prep Papanicolaou smear with manual screening 9 5-15 [facility] Absolute lymphocyte countOrd ered By: Breanne Ruiz on 08-09-2022 Lymphocytes Auto (Unsp spec) [#/Vol] 1.01 10*3/uL 0.83-4.51 [facility] Basophil percentageOrdered B y: Breanne Ruiz on 08-09-2022 Basophils/100 WBC (Bld) 1.0 % 0-1 [facility] Chloride [Moles/Vol] 106 mmol/L 98-107 [facility] Eosinophils/100 WBC (Bld) 5.8 % 0-5 [facility] Glucose [Mass/Vol] 117 mg/dL 74-106 [facility] Comment on above: Fasting Glucose resu lt from 100 to 125 mg/dL suggests IMPAIRED HOMEOSTASIS per A.D.A. criteria. Neutrophils (Bld) [#/Vol] 5.8 10*3/uL 2.0-7.7 [facility] Neutrophils/100 WBC (Bld) 69.6 % 47-70 [facility] Potassium [Moles/Vol] 4.1 mmol/L 3.5-5.[address] [facility] Comment on above: Slight Hemolysis, Re sult may be falsely increased. Sodium [Moles/Vol] 138 mmol/L 136-145 [facility] WBC (Bld) [#/Vol] 8.3 10*3/uL 4.4-11.0 [facility] Blood erythrocytes count (nu mber/volume)Ordered By: Breanne Ruiz on 08-09-2022 RBC (Bld) [#/Vol] 4.96 10*6/uL 4.2-5.4 [facility] Blood hemoglobin measurement (mass/volume)Ordered By: Breanne Ruiz on 08-09-2022 Hemoglobin (Bld) [Mass/Vol] 13.3 g/dL 12.0-15.0 [facility] Blood lymphocytes/100 leukoc ytesOrdered By: Breanne Ruiz on 08-09-2022 Lymphocytes/100 WBC (Bld) 12.2 % 19-41 [facility] Blood monocytes/100 leukocyt esOrdered By: Breanne Ruiz on 08-09-2022 Monocytes/100 WBC (Bld) 10.8 % 0-10 [facility] Blood platelet mean volumeOr dered By: Breanne Ruiz on 08-09-2022 Platelet mean volume (Bld) [Entitic vol] 9.0 fL 6.2-12.0 [facility] Determination of erythrocyte mean corpuscular volume (MCV)Ordered By: Breanne Ruiz on 08-09-2022 MCV (RBC) [Entitic vol] 89.3 fL 81-99 [facility] Hematocrit Auto (Bld) [Volum e fraction]Ordered By: Breanne Ruiz on 08-09-2022 Hematocrit (Bld) [Volume fraction] 44.3 % 37-47 [facility] - Chemistry and C hemistry - challengeOrdered By: Breanne Ruiz on 08-09-2022 CO2 [Moles/Vol] 23.0 mmol/L 21.0-32.0 [facility] Urea nitrogen/Creatinine [Mass ratio] 38.2 mg/mg 10-20 [facility] - Hematology and Cell countsOrdered By: Breanne Ruiz on 08-09-2022 Erythrocyte distribution width (RBC) [Entitic vol] 46.2 fL 35.1-43.9 [facility] Erythrocyte distribution width (RBC) [Ratio] 14.2 % 11.6-14.6 [facility] Immature granulocytes/100 WBC (Bld) 0.600 % 0.0-0.9 [facility] Comment on above: IG% - Immature Granu locytes (promyelocytes, myelocytes and metamyelocytes) > 1% indicates that a LEFT SHIFT is Present. MCH (RBC) [Entitic mass] 26.8 pg 27.0-32.0 [facility] Nucleated RBC/100 WBC (Bld) [Ratio] 0 % 0-5 [facility] MCHC Auto (RBC) [Mass/Vol]Or dered By: Breanne Ruiz on 08-09-2022 MCHC (RBC) [Mass/Vol] 30.0 g/dL 32-[address] [facility] No Panel InformationOrdered By: Breanne Ruiz on 08-09-2022 Estimated GFR (MDRD) Amer 122 mL/min >60 [facility] Comment on above: GFR Calc Estimated GFR (MDRD) Non-Af Amer 101 mL/min >60 [facility] Comment on above: Non- GFR Calc Platelets bldOrdered By: Prashant Ruiz on 08-09-2022 Platelets (Bld) [#/Vol] 463 10*3/uL 150-450 [facility] Serum or plasma calcium jj urement (mass/volume)Ordered By: Breanne Ruiz on 08-09-2022 Calcium [Mass/Vol] 9.5 mg/dL 8.5-10.1 [facility] Serum or plasma creatinine m easurement (mass/volume)Ordered By: Breanne Ruiz on 08-09-2022 Creatinine [Mass/Vol] 0.63 mg/dL 0.55-1.[address] [facility] Comment on above: The validity of the calculated GFR & GFRAA in patients over 70 years has not been determined. Clinical correlation is essential. Serum or plasma urea nitroge n measurement (mass/volume)Ordered By: [facility] on 08-09-2022 Urea nitrogen [Mass/Vol] 24 mg/dL 7-18 [facility] Thin prep Papanicolaou smear with manual screeningOrdered By: [facility] on 08-09-2022 Thin prep Papanicolaou smear with manual screening 9 5-15 [facility] Absolute lymphocyte countOrd ered By: Breanne Ruiz on 07-26-2022 Lymphocytes Auto (Unsp spec) [#/Vol] 1.12 10*3/uL 0.83-4.51 [facility] Basophil percentageOrdered B y: Breanne Ruiz on 07-26-2022 Basophils/100 WBC (Bld) 1.7 % 0-1 [facility] Chloride [Moles/Vol] 109 mmol/L 98-107 [facility] Eosinophils/100 WBC (Bld) 6.3 % 0-5 [facility] Glucose [Mass/Vol] 110 mg/dL 74-106 [facility] Comment on above: Fasting Glucose resu lt from 100 to 125 mg/dL suggests IMPAIRED HOMEOSTASIS per A.D.A. criteria. Neutrophils (Bld) [#/Vol] 4.2 10*3/uL 2.0-7.7 [facility] Neutrophils/100 WBC (Bld) 62.5 % 47-70 [facility] Potassium [Moles/Vol] 4.1 mmol/L 3.5-5.[address] [facility] Sodium [Moles/Vol] 143 mmol/L 136-145 [facility] WBC (Bld) [#/Vol] 6.6 10*3/uL 4.4-11.0 [facility] Blood erythrocytes count (nu mber/volume)Ordered By: Breanne Ruiz on 07-26-2022 RBC (Bld) [#/Vol] 4.98 10*6/uL 4.2-5.4 [facility] Blood hemoglobin measurement (mass/volume)Ordered By: Breanne Ruiz on 07-26-2022 Hemoglobin (Bld) [Mass/Vol] 13.4 g/dL 12.0-15.0 [facility] Blood lymphocytes/100 leukoc ytesOrdered By: [facility] on 07-26-2022 Lymphocytes/100 WBC (Bld) 16.9 % 19-41 [facility] Blood monocytes/100 leukocyt esOrdered By: [facility] branchchetan Ruiz on 07-26-2022 Monocytes/100 WBC (Bld) 11.5 % 0-10 [facility] Blood platelet mean volumeOr dered By: Breanne Ruiz on 07-26-2022 Platelet mean volume (Bld) [Entitic vol] 8.9 fL 6.2-12.0 [facility] Determination of erythrocyte mean corpuscular volume (MCV)Ordered By: Breanne Ruiz on 07-26-2022 MCV (RBC) [Entitic vol] 90.6 fL 81-99 [facility] Hematocrit Auto (Bld) [Volum e fraction]Ordered By: Breanne Ruiz on 07-26-2022 Hematocrit (Bld) [Volume fraction] 45.1 % 37-47 [facility] - Chemistry and C hemistry - challengeOrdered By: Breanne Ruiz on 07-26-2022 CO2 [Moles/Vol] 25.0 mmol/L 21.0-32.0 [facility] Urea nitrogen/Creatinine [Mass ratio] 48.5 mg/mg 10-20 [facility] - Hematology and Cell countsOrdered By: Breanne Ruiz on 07-26-2022 Erythrocyte distribution width (RBC) [Entitic vol] 48.2 fL 35.1-43.9 [facility] Erythrocyte distribution width (RBC) [Ratio] 14.5 % 11.6-14.6 [facility] Immature granulocytes/100 WBC (Bld) 1.100 % 0.0-0.9 [facility] Comment on above: IG% - Immature Granu locytes (promyelocytes, myelocytes and metamyelocytes) > 1% indicates that a LEFT SHIFT is Present. MCH (RBC) [Entitic mass] 26.9 pg 27.0-32.0 [facility] Nucleated RBC/100 WBC (Bld) [Ratio] 0 % 0-5 [facility] MCHC Auto (RBC) [Mass/Vol]Or dered By: Breanne Ruiz on 07-26-2022 MCHC (RBC) [Mass/Vol] 29.7 g/dL 32-[address] [facility] No Panel InformationOrdered By: Breanne Ruzi on 07-26-2022 Estimated GFR (MDRD) Amer 116 mL/min >60 [facility] Comment on above: GFR Calc Estimated GFR (MDRD) Non-Af Amer 96 mL/min >60 [facility] Comment on above: Non- GFR Calc Platelets bldOrdered By: Prashant Ruiz on 07-26-2022 Platelets (Bld) [#/Vol] 464 10*3/uL 150-450 [facility] Serum or plasma calcium jj urement (mass/volume)Ordered By: Breanne Ruiz on 07-26-2022 Calcium [Mass/Vol] 9.7 mg/dL 8.5-10.1 [facility] Serum or plasma creatinine m easurement (mass/volume)Ordered By: Breanne Ruiz on 07-26-2022 Creatinine [Mass/Vol] 0.66 mg/dL 0.55-1.[address] [facility] Comment on above: The validity of the calculated GFR & GFRAA in patients over 70 years has not been determined. Clinical correlation is essential. Serum or plasma urea nitroge n measurement (mass/volume)Ordered By: Breanne Ruiz on 07-26-2022 Urea nitrogen [Mass/Vol] 32 mg/dL 7-18 [facility] Thin prep Papanicolaou smear with manual screeningOrdered By: Breanne Ruiz on 07-26-2022 Thin prep Papanicolaou smear with manual screening 9 5-15 [facility] Whole blood hemoglobin A1c/t otal hemoglobin ratio (mass fraction)Ordered By: Breanne uRiz on 07-13-2022 HbA1c (Bld) [Mass fraction] 5.8 % 3.8-5.6 [facility] Comment on above: Normal < 5.7 % Predi abetic 5.7 - 6.4 % Diabetic >or= 6.5 % Please note range changes. Absolute lymphocyte countOrd ered By: Asad Jamison on 07-12-2022 Lymphocytes Auto (Unsp spec) [#/Vol] 1.16 10*3/uL 0.83-4.51 [facility] Basophil percentageOrdered B y: Asad Jamison on 07-12-2022 Basophils/100 WBC (Bld) 1.4 % 0-1 [facility] Chloride [Moles/Vol] 107 mmol/L 98-107 [facility] Eosinophils/100 WBC (Bld) 4.3 % 0-5 [facility] Glucose [Mass/Vol] 148 mg/dL 74-106 [facility] Comment on above: Fasting Glucose resu lt greater than or equal to 126 mg/dL suggests DIABETES MELLITUS per A.D.A. criteria. Neutrophils (Bld) [#/Vol] 5.3 10*3/uL 2.0-7.7 [facility] Neutrophils/100 WBC (Bld) 69.0 % 47-70 [facility] Potassium [Moles/Vol] 3.9 mmol/L 3.5-5.[address] [facility] Sodium [Moles/Vol] 142 mmol/L 136-145 [facility] WBC (Bld) [#/Vol] 7.7 10*3/uL 4.4-11.0 [facility] Blood erythrocytes count (nu mber/volume)Ordered By: Asda Jamison on 07-12-2022 RBC (Bld) [#/Vol] 4.99 10*6/uL 4.2-5.4 [facility] Blood hemoglobin measurement (mass/volume)Ordered By: Asad Jamison on 07-12-2022 Hemoglobin (Bld) [Mass/Vol] 13.4 g/dL 12.0-15.0 [facility] Blood lymphocytes/100 leukoc ytesOrdered By: Asad Jamison on 07-12-2022 Lymphocytes/100 WBC (Bld) 15.0 % 19-41 [facility] Blood monocytes/100 leukocyt esOrdered By: Asad Jamison on 07-12-2022 Monocytes/100 WBC (Bld) 9.8 % 0-10 [facility] Blood platelet mean volumeOr dered By: Asad Jamison on 07-12-2022 Platelet mean volume (Bld) [Entitic vol] 8.6 fL 6.2-12.0 [facility] Determination of erythrocyte mean corpuscular volume (MCV)Ordered By: Asad Jamison on 07-12-2022 MCV (RBC) [Entitic vol] 88.4 fL 81-99 [facility] Hematocrit Auto (Bld) [Volum e fraction]Ordered By: Asad Jamison on 07-12-2022 Hematocrit (Bld) [Volume fraction] 44.1 % 37-47 [facility] - Chemistry and C hemistry - challengeOrdered By: Asad Jamison on 07-12-2022 CO2 [Moles/Vol] 27.0 mmol/L 21.0-32.0 [facility] Urea nitrogen/Creatinine [Mass ratio] 36.2 mg/mg 10-20 [facility] - Hematology and Cell countsOrdered By: Asad Jamison on 07-12-2022 Erythrocyte distribution width (RBC) [Entitic vol] 46.5 fL 35.1-43.9 [facility] Erythrocyte distribution width (RBC) [Ratio] 14.4 % 11.6-14.6 [facility] Immature granulocytes/100 WBC (Bld) 0.500 % 0.0-0.9 [facility] Comment on above: IG% - Immature Granu locytes (promyelocytes, myelocytes and metamyelocytes) > 1% indicates that a LEFT SHIFT is Present. MCH (RBC) [Entitic mass] 26.9 pg 27.0-32.0 [facility] Nucleated RBC/100 WBC (Bld) [Ratio] 0 % 0-5 [facility] MCHC Auto (RBC) [Mass/Vol]Or dered By: Asda Jamison on 07-12-2022 MCHC (RBC) [Mass/Vol] 30.4 g/dL 32-[address] [facility] No Panel InformationOrdered By: Asad Jamison on 07-12-2022 Estimated GFR (MDRD) Amer 101 mL/min >60 [facility] Comment on above: GFR Calc Estimated GFR (MDRD) Non-Af Amer 83 mL/min >60 [facility] Comment on above: Non- GFR Calc Platelets bldOrdered By: Gonzales Jamison on 07-12-2022 Platelets (Bld) [#/Vol] 491 10*3/uL 150-450 [facility] Serum or plasma calcium jj urement (mass/volume)Ordered By: Asad Jamison on 07-12-2022 Calcium [Mass/Vol] 9.7 mg/dL 8.5-10.1 [facility] Serum or plasma creatinine m easurement (mass/volume)Ordered By: Asad Jamison on 07-12-2022 Creatinine [Mass/Vol] 0.74 mg/dL 0.55-1.[address] [facility] Comment on above: The validity of the calculated GFR & GFRAA in patients over 70 years has not been determined. Clinical correlation is essential. Serum or plasma urea nitroge n measurement (mass/volume)Ordered By: Asad Jamison on 07-12-2022 Urea nitrogen [Mass/Vol] 27 mg/dL 7-18 [facility] Thin prep Papanicolaou smear with manual screeningOrdered By: Asad Jamison on 07-12-2022 Thin prep Papanicolaou smear with manual screening 8 5-15 [facility] Absolute lymphocyte countOrd ered By: Asad Jamison on 06-28-2022 Lymphocytes Auto (Unsp spec) [#/Vol] 1.41 10*3/uL 0.83-4.51 [facility] Basophil percentageOrdered B y: Asad Jamison on 06-28-2022 Basophils/100 WBC (Bld) 1.7 % 0-1 [facility] Chloride [Moles/Vol] 108 mmol/L 98-107 [facility] Eosinophils/100 WBC (Bld) 6.8 % 0-5 [facility] Glucose [Mass/Vol] 117 mg/dL 74-106 [facility] Comment on above: Fasting Glucose resu lt from 100 to 125 mg/dL suggests IMPAIRED HOMEOSTASIS per A.D.A. criteria. Neutrophils (Bld) [#/Vol] 3.8 10*3/uL 2.0-7.7 [facility] Neutrophils/100 WBC (Bld) 56.9 % 47-70 [facility] Potassium [Moles/Vol] 4.0 mmol/L 3.5-5.[address] [facility] Sodium [Moles/Vol] 142 mmol/L 136-145 [facility] WBC (Bld) [#/Vol] 6.7 10*3/uL 4.4-11.0 [facility] Blood erythrocytes count (nu mber/volume)Ordered By: Asad Jamison on 06-28-2022 RBC (Bld) [#/Vol] 4.72 10*6/uL 4.2-5.4 [facility] Blood hemoglobin measurement (mass/volume)Ordered By: Asad Jamison on 06-28-2022 Hemoglobin (Bld) [Mass/Vol] 12.8 g/dL 12.0-15.0 [facility] Blood lymphocytes/100 leukoc ytesOrdered By: Asad Jamison on 06-28-2022 Lymphocytes/100 WBC (Bld) 21.2 % 19-41 [facility] Blood monocytes/100 leukocyt esOrdered By: Asad Jamison on 06-28-2022 Monocytes/100 WBC (Bld) 12.5 % 0-10 [facility] Blood platelet mean volumeOr dered By: Asad Jamison on 06-28-2022 Platelet mean volume (Bld) [Entitic vol] 9.0 fL 6.2-12.0 [facility] Determination of erythrocyte mean corpuscular volume (MCV)Ordered By: Asad Jamison on 06-28-2022 MCV (RBC) [Entitic vol] 90.7 fL 81-99 [facility] Hematocrit Auto (Bld) [Volum e fraction]Ordered By: Asad Jamison on 06-28-2022 Hematocrit (Bld) [Volume fraction] 42.8 % 37-47 [facility] - Chemistry and C hemistry - challengeOrdered By: Asad Jamison on 06-28-2022 CO2 [Moles/Vol] 24.0 mmol/L 21.0-32.0 [facility] Urea nitrogen/Creatinine [Mass ratio] 39.1 mg/mg 10-20 [facility] - Hematology and Cell countsOrdered By: Asad Jamison on 06-28-2022 Erythrocyte distribution width (RBC) [Entitic vol] 48.6 fL 35.1-43.9 [facility] Erythrocyte distribution width (RBC) [Ratio] 14.6 % 11.6-14.6 [facility] Immature granulocytes/100 WBC (Bld) 0.900 % 0.0-0.9 [facility] Comment on above: IG% - Immature Granu locytes (promyelocytes, myelocytes and metamyelocytes) > 1% indicates that a LEFT SHIFT is Present. MCH (RBC) [Entitic mass] 27.1 pg 27.0-32.0 [facility] Nucleated RBC/100 WBC (Bld) [Ratio] 0 % 0-5 [facility] MCHC Auto (RBC) [Mass/Vol]Or dered By: Asad Jamison on 06-28-2022 MCHC (RBC) [Mass/Vol] 29.9 g/dL 32-[address] [facility] No Panel InformationOrdered By: Asad Jamison on 06-28-2022 Estimated GFR (MDRD) Amer 115 mL/min >60 [facility] Comment on above: GFR Calc Estimated GFR (MDRD) Non-Af Amer 95 mL/min >60 [facility] Comment on above: Non- GFR Calc Platelets bldOrdered By: Gonzales Jamison on 06-28-2022 Platelets (Bld) [#/Vol] 481 10*3/uL 150-450 [facility] Serum or plasma calcium jj urement (mass/volume)Ordered By: Asad Jamison on 06-28-2022 Calcium [Mass/Vol] 9.4 mg/dL 8.5-10.1 [facility] Serum or plasma creatinine m easurement (mass/volume)Ordered By: Asad Jamison on 06-28-2022 Creatinine [Mass/Vol] 0.66 mg/dL 0.55-1.[address] [facility] Comment on above: The validity of the calculated GFR & GFRAA in patients over 70 years has not been determined. Clinical correlation is essential. Serum or plasma urea nitroge n measurement (mass/volume)Ordered By: Asad Jamison on 06-28-2022 Urea nitrogen [Mass/Vol] 26 mg/dL 7-18 [facility] Thin prep Papanicolaou smear with manual screeningOrdered By: Asad Jamison on 06-28-2022 Thin prep Papanicolaou smear with manual screening 10 5-15 [facility] Absolute lymphocyte countOrd ered By: Asad Jamison on 06-14-2022 Lymphocytes Auto (Unsp spec) [#/Vol] 1.27 10*3/uL 0.83-4.51 [facility] Basophil percentageOrdered B y: Asad Jaimson on 06-14-2022 Basophils/100 WBC (Bld) 1.3 % 0-1 [facility] Chloride [Moles/Vol] 111 mmol/L 98-107 [facility] Eosinophils/100 WBC (Bld) 3.9 % 0-5 [facility] Glucose [Mass/Vol] 123 mg/dL 74-106 [facility] Comment on above: Fasting Glucose resu lt from 100 to 125 mg/dL suggests IMPAIRED HOMEOSTASIS per A.D.A. criteria. Neutrophils (Bld) [#/Vol] 4.5 10*3/uL 2.0-7.7 [facility] Neutrophils/100 WBC (Bld) 63.0 % 47-70 [facility] Potassium [Moles/Vol] 4.2 mmol/L 3.5-5.[address] [facility] Sodium [Moles/Vol] 143 mmol/L 136-145 [facility] WBC (Bld) [#/Vol] 7.2 10*3/uL 4.4-11.0 [facility] Blood erythrocytes count (nu mber/volume)Ordered By: Asad Jamison on 06-14-2022 RBC (Bld) [#/Vol] 4.60 10*6/uL 4.2-5.4 [facility] Blood hemoglobin measurement (mass/volume)Ordered By: Asad Jamison on 06-14-2022 Hemoglobin (Bld) [Mass/Vol] 12.8 g/dL 12.0-15.0 [facility] Blood lymphocytes/100 leukoc ytesOrdered By: Asad Jamison on 06-14-2022 Lymphocytes/100 WBC (Bld) 17.7 % 19-41 [facility] Blood monocytes/100 leukocyt esOrdered By: Asad Jamison on 06-14-2022 Monocytes/100 WBC (Bld) 13.4 % 0-10 [facility] Blood platelet mean volumeOr dered By: Asad Jamison on 06-14-2022 Platelet mean volume (Bld) [Entitic vol] 9.0 fL 6.2-12.0 [facility] Determination of erythrocyte mean corpuscular volume (MCV)Ordered By: Asad Jamison on 06-14-2022 MCV (RBC) [Entitic vol] 90.4 fL 81-99 [facility] Hematocrit Auto (Bld) [Volum e fraction]Ordered By: Asad Jamison on 06-14-2022 Hematocrit (Bld) [Volume fraction] 41.6 % 37-47 [facility] - Chemistry and C hemistry - challengeOrdered By: Asad Jamison on 06-14-2022 CO2 [Moles/Vol] 26.0 mmol/L 21.0-32.0 [facility] Urea nitrogen/Creatinine [Mass ratio] 49.2 mg/mg 10-20 [facility] - Hematology and Cell countsOrdered By: Asad Jamison on 06-14-2022 Erythrocyte distribution width (RBC) [Entitic vol] 49.1 fL 35.1-43.9 [facility] Erythrocyte distribution width (RBC) [Ratio] 14.7 % 11.6-14.6 [facility] Immature granulocytes/100 WBC (Bld) 0.700 % 0.0-0.9 [facility] Comment on above: IG% - Immature Granu locytes (promyelocytes, myelocytes and metamyelocytes) > 1% indicates that a LEFT SHIFT is Present. MCH (RBC) [Entitic mass] 27.8 pg 27.0-32.0 [facility] Nucleated RBC/100 WBC (Bld) [Ratio] 0 % 0-5 [facility] MCHC Auto (RBC) [Mass/Vol]Or dered By: Asad Jamison on 06-14-2022 MCHC (RBC) [Mass/Vol] 30.8 g/dL 32-[address] [facility] No Panel InformationOrdered By: Asad Jamison on 06-14-2022 Estimated GFR (MDRD) Amer 118 mL/min >60 [facility] Comment on above: GFR Calc Estimated GFR (MDRD) Non-Af Amer 97 mL/min >60 [facility] Comment on above: Non- GFR Calc Platelets bldOrdered By: Gonzales Jamison on 06-14-2022 Platelets (Bld) [#/Vol] 536 10*3/uL 150-450 [facility] Serum or plasma calcium jj urement (mass/volume)Ordered By: Asad Jamison on 06-14-2022 Calcium [Mass/Vol] 9.5 mg/dL 8.5-10.1 [facility] Serum or plasma creatinine m easurement (mass/volume)Ordered By: Asad Jamison on 06-14-2022 Creatinine [Mass/Vol] 0.65 mg/dL 0.55-1.[address] [facility] Comment on above: The validity of the calculated GFR & GFRAA in patients over 70 years has not been determined. Clinical correlation is essential. Serum or plasma urea nitroge n measurement (mass/volume)Ordered By: Asad Jamison on 06-14-2022 Urea nitrogen [Mass/Vol] 32 mg/dL 7-18 [facility] Thin prep Papanicolaou smear with manual screeningOrdered By: Asad Jamison on 06-14-2022 Thin prep Papanicolaou smear with manual screening 6 5-15 [facility] Basophil percentageOrdered B y: Breanne Ruiz on 06-03-2022 Chloride [Moles/Vol] 106 mmol/L 98-107 [facility] Glucose [Mass/Vol] 116 mg/dL 74-106 [facility] Comment on above: Fasting Glucose resu lt from 100 to 125 mg/dL suggests IMPAIRED HOMEOSTASIS per A.D.A. criteria. Potassium [Moles/Vol] 4.1 mmol/L 3.5-5.[address] [facility] Sodium [Moles/Vol] 139 mmol/L 136-145 [facility] Laboratory - Chemistry and C hemistry - challengeOrdered By: Breanne Ruiz on 06-03-2022 CO2 [Moles/Vol] 26.0 mmol/L 21.0-32.0 [facility] Urea nitrogen/Creatinine [Mass ratio] 38.7 mg/mg 10-20 [facility] No Panel InformationOrdered By: Breanne Ruiz on 06-03-2022 Estimated GFR (MDRD) Amer 138 mL/min >60 [facility] Comment on above: GFR Calc Estimated GFR (MDRD) Non-Af Amer 114 mL/min >60 [facility] Comment on above: Non- GFR Calc Serum or plasma calcium jj urement (mass/volume)Ordered By: Breanne Ruiz on 06-03-2022 Calcium [Mass/Vol] 9.7 mg/dL 8.5-10.1 [facility] Serum or plasma creatinine m easurement (mass/volume)Ordered By: Breanne Ruiz on 06-03-2022 Creatinine [Mass/Vol] 0.57 mg/dL 0.55-1.[address] [facility] Comment on above: The validity of the calculated GFR & GFRAA in patients over 70 years has not been determined. Clinical correlation is essential. Serum or plasma urea nitroge n measurement (mass/volume)Ordered By: Breanne Ruiz on 06-03-2022 Urea nitrogen [Mass/Vol] 22 mg/dL 7-18 [facility] Thin prep Papanicolaou smear with manual screeningOrdered By: adalbertonorth branchchetan Ruiz on 06-03-2022 Thin prep Papanicolaou smear with manual screening 7 5-15 [facility] Basophil percentageOrdered B y: Breanne Ruiz on 06-01-2022 Potassium [Moles/Vol] 3.9 mmol/L 3.5-5.[address] [facility] Absolute lymphocyte countOrd ered By: Breanne Ruiz on 05-31-2022 Lymphocytes Auto (Unsp spec) [#/Vol] 1.39 10*3/uL 0.83-4.51 [facility] Basophil percentageOrdered B y: Breanne Ruiz on 05-31-2022 Basophils/100 WBC (Bld) 1.0 % 0-1 [facility] Chloride [Moles/Vol] 106 mmol/L 98-107 [facility] Eosinophils/100 WBC (Bld) 4.6 % 0-5 [facility] Glucose [Mass/Vol] 74 mg/dL 74-106 [facility] Neutrophils (Bld) [#/Vol] 7.3 10*3/uL 2.0-7.7 [facility] Neutrophils/100 WBC (Bld) 69.9 % 47-70 [facility] Potassium [Moles/Vol] 4.0 mmol/L 3.5-5.[address] [facility] Sodium [Moles/Vol] 141 mmol/L 136-145 [facility] WBC (Bld) [#/Vol] 10.4 10*3/uL 4.4-11.0 [facility] Blood erythrocytes count (nu mber/volume)Ordered By: Breanne Ruiz on 05-31-2022 RBC (Bld) [#/Vol] 4.49 10*6/uL 4.2-5.4 [facility] Blood hemoglobin measurement (mass/volume)Ordered By: Breanne Ruiz on 05-31-2022 Hemoglobin (Bld) [Mass/Vol] 12.5 g/dL 12.0-15.0 [facility] Blood lymphocytes/100 leukoc ytesOrdered By: Breanne Ruiz on 05-31-2022 Lymphocytes/100 WBC (Bld) 13.3 % 19-41 [facility] Blood monocytes/100 leukocyt esOrdered By: Breanne Ruiz on 05-31-2022 Monocytes/100 WBC (Bld) 10.0 % 0-10 [facility] Blood platelet mean volumeOr dered By: Breanne Ruiz on 05-31-2022 Platelet mean volume (Bld) [Entitic vol] 8.8 fL 6.2-12.0 [facility] Culture, urineOrdered By: Elio Ruiz on 05-31-2022 Bacteria identified Cx Nom (U) Escherichia coli [facility] Determination of erythrocyte mean corpuscular volume (MCV)Ordered By: Breanne Ruiz on 05-31-2022 MCV (RBC) [Entitic vol] 91.3 fL 81-99 [facility] Hematocrit Auto (Bld) [Volum e fraction]Ordered By: Breanne Ruiz on 05-31-2022 Hematocrit (Bld) [Volume fraction] 41.0 % 37-47 [facility] Laboratory - Chemistry and C hemistry - challengeOrdered By: Breanne Ruiz on 05-31-2022 CO2 [Moles/Vol] 25.0 mmol/L 21.0-32.0 [facility] Urea nitrogen/Creatinine [Mass ratio] 43.0 mg/mg 10-20 [facility] Laboratory - Hematology and Cell countsOrdered By: Breanne Ruiz on 05-31-2022 Erythrocyte distribution width (RBC) [Entitic vol] 49.5 fL 35.1-43.9 [facility] Erythrocyte distribution width (RBC) [Ratio] 14.6 % 11.6-14.6 [facility] Immature granulocytes/100 WBC (Bld) 1.200 % 0.0-0.9 [facility] Comment on above: IG% - Immature Granu locytes (promyelocytes, myelocytes and metamyelocytes) > 1% indicates that a LEFT SHIFT is Present. MCH (RBC) [Entitic mass] 27.8 pg 27.0-32.0 [facility] Nucleated RBC/100 WBC (Bld) [Ratio] 0 % 0-5 [facility] MCHC Auto (RBC) [Mass/Vol]Or dered By: Breanne Ruiz on 05-31-2022 MCHC (RBC) [Mass/Vol] 30.5 g/dL 32-[address] [facility] No Panel InformationOrdered By: Breanne Ruiz on 05-31-2022 Estimated GFR (MDRD) Amer 155 mL/min >60 [facility] Comment on above: GFR Calc Estimated GFR (MDRD) Non-Af Amer 128 mL/min >60 [facility] Comment on above: Non- GFR Calc Platelets bldOrdered By: Prashant Ruiz on 05-31-2022 Platelets (Bld) [#/Vol] 605 10*3/uL 150-450 [facility] Serum or plasma calcium jj urement (mass/volume)Ordered By: Breanne Ruiz on 05-31-2022 Calcium [Mass/Vol] 10.1 mg/dL 8.5-10.1 [facility] Serum or plasma creatinine m easurement (mass/volume)Ordered By: Breanne Ruiz on 05-31-2022 Creatinine [Mass/Vol] 0.51 mg/dL 0.55-1.[address] [facility] Comment on above: The validity of the calculated GFR & GFRAA in patients over 70 years has not been determined. Clinical correlation is essential. Serum or plasma urea nitroge n measurement (mass/volume)Ordered By: Breanne Ruiz on 05-31-2022 Urea nitrogen [Mass/Vol] 22 mg/dL 7-18 [facility] Thin prep Papanicolaou smear with manual screeningOrdered By: Breanne Ruiz on 05-31-2022 Thin prep Papanicolaou smear with manual screening 10 5-15 [facility] Bilirubin Test strip Ql (U)O rdered By: Breanne Ruiz on 05-28-2022 Bilirubin Ql (U) Negative Negative [facility] Ketones Test strip Ql (U)Ord ered By: Breanne Ruiz on 05-28-2022 Ketones Ql (U) Negative Negative [facility] Nitrite Test strip Ql (U)Ord ered By: Breanne Ruiz on 05-28-2022 Nitrite Ql (U) Positive Negative [facility] Protein Test strip Ql (U)Ord ered By: Breanne Ruiz on 05-28-2022 Protein Ql (U) 30 mg/dl Negative [facility] Urine blood detectionOrdered By: Breanne Ruiz on 05-28-2022 RBC Ql (U) 25 /ul Negative [facility] Urine clarityOrdered By: Prashant Ruiz on 05-28-2022 Clarity (U) Cloudy Clear [facility] Urine color determinationOrd ered By: Breanne Ruiz on 05-28-2022 Color (U) Yellow Yellow [facility] Urine glucose detectionOrder ed By: Breanne Ruiz on 05-28-2022 Glucose Ql (U) Normal mg/dl Normal [facility] Urine leukocyte esterase det ection by dipstickOrdered By: Breanne Ruiz on 05-28-2022 Leukocyte esterase Test strip Ql (U) 500 /ul Negative [facility] Urine pHOrdered By: Bhupendra Ruiz on 05-28-2022 pH (U) 5.0 [pH] 5.0 - 8.0 [facility] Urine specific gravity measu rementOrdered By: Breanne Ruiz on 05-28-2022 Specific gravity (U) [Rel density] 1.025 1.002-1.030 [facility] Urobilinogen Auto test strip Ql (U)Ordered By: Breanne Ruiz on 05-28-2022 Urobilinogen Ql (U) Normal mg/dl Normal [facility] Absolute lymphocyte countOrd ered By: vannessa Ruiz on 05-27-2022 Lymphocytes Auto (Unsp spec) [#/Vol] 1.33 10*3/uL 0.83-4.51 [facility] Basophil percentageOrdered B y: adalbertonorth branchchetan Ruiz on 05-27-2022 Basophils/100 WBC (Bld) 0.4 % 0-1 [facility] Chloride [Moles/Vol] 106 mmol/L 98-107 [facility] Eosinophils/100 WBC (Bld) 0.1 % 0-5 [facility] Glucose [Mass/Vol] 196 mg/dL 74-106 [facility] Comment on above: Fasting Glucose resu lt greater than or equal to 126 mg/dL suggests DIABETES MELLITUS per A.D.A. criteria. Neutrophils (Bld) [#/Vol] 19.9 10*3/uL 2.0-7.7 [facility] Neutrophils/100 WBC (Bld) 85.7 % 47-70 [facility] Potassium [Moles/Vol] 3.3 mmol/L 3.5-5.[address] [facility] Sodium [Moles/Vol] 139 mmol/L 136-145 [facility] WBC (Bld) [#/Vol] 23.2 10*3/uL 4.4-11.0 [facility] Blood erythrocytes count (nu mber/volume)Ordered By: Breanne Ruiz on 05-27-2022 RBC (Bld) [#/Vol] 4.62 10*6/uL 4.2-5.4 [facility] Blood hemoglobin measurement (mass/volume)Ordered By: Breanne Ruiz on 05-27-2022 Hemoglobin (Bld) [Mass/Vol] 12.9 g/dL 12.0-15.0 [facility] Blood lymphocytes/100 leukoc ytesOrdered By: Breanne Ruiz on 05-27-2022 Lymphocytes/100 WBC (Bld) 5.7 % 19-41 [facility] Blood manual differential co mment interpretation (narrative result)Ordered By: Breanne Ruiz on 05-27-2022 Manual differential comment Shaan (Bld) [Interp] COMMENT [facility] Comment on above: MONOCYTOSIS. Blood monocytes/100 leukocyt esOrdered By: Breanne Ruiz on 05-27-2022 Monocytes/100 WBC (Bld) 7.8 % 0-10 [facility] Blood platelet mean volumeOr dered By: Breanne Ruiz on 05-27-2022 Platelet mean volume (Bld) [Entitic vol] 8.6 fL 6.2-12.0 [facility] Determination of erythrocyte mean corpuscular volume (MCV)Ordered By: Breanne Ruiz on 05-27-2022 MCV (RBC) [Entitic vol] 88.1 fL 81-99 [facility] Hematocrit Auto (Bld) [Volum e fraction]Ordered By: Breanne Ruiz on 05-27-2022 Hematocrit (Bld) [Volume fraction] 40.7 % 37-47 [facility] Laboratory - Chemistry and C hemistry - challengeOrdered By: Breanne Ruiz on 05-27-2022 CO2 [Moles/Vol] 22.0 mmol/L 21.0-32.0 [facility] Urea nitrogen/Creatinine [Mass ratio] 23.1 mg/mg 10-20 [facility] Laboratory - Hematology and Cell countsOrdered By: Breanne Ruiz on 05-27-2022 Erythrocyte distribution width (RBC) [Entitic vol] 48.1 fL 35.1-43.9 [facility] Erythrocyte distribution width (RBC) [Ratio] 14.9 % 11.6-14.6 [facility] Immature granulocytes/100 WBC (Bld) 0.300 % 0.0-0.9 [facility] Comment on above: IG% - Immature Granu locytes (promyelocytes, myelocytes and metamyelocytes) > 1% indicates that a LEFT SHIFT is Present. MCH (RBC) [Entitic mass] 27.9 pg 27.0-32.0 [facility] Nucleated RBC/100 WBC (Bld) [Ratio] 0 % 0-5 [facility] MCHC Auto (RBC) [Mass/Vol]Or dered By: Breanne Ruiz on 05-27-2022 MCHC (RBC) [Mass/Vol] 31.7 g/dL 32-[address] [facility] No Panel InformationOrdered By: Breanne Ruiz on 05-27-2022 Estimated GFR (MDRD) Amer 80 mL/min >60 [facility] Comment on above: GFR Calc Estimated GFR (MDRD) Non-Af Amer 66 mL/min >60 [facility] Comment on above: Non- GFR Calc Troponin I High Sensitivity 7 pg/mL 3.0-54.0 [facility] Comment on above: Please Note: New Adwo[place] t Units and Gender Specific Reference Ranges. For more information see Policy Stat Procedure [place] High Sensitivity Troponin (TNIH) and attachments. Platelets bldOrdered By: Prashant Ruiz on 05-27-2022 Platelets (Bld) [#/Vol] 468 10*3/uL 150-450 [facility] Review by pathologistOrdered By: Breanne Ruiz on 05-27-2022 Pathologist review Shaan (Unsp spec) [Interp] Reviewed [facility] Comment on above: Previous reported re sult: Kori isaacs Edited by: RGOOD on 05/31/22:1348Neutrophilic leukocytosis.Thrombocytosis.Clinical correlation necessary.Je Browne M.D. 05/31/22 AMENDED REPORT 05/31/22 1348 PATH REV previously reported as: Kori isaacs Serum or plasma calcium jj urement (mass/volume)Ordered By: Breanne Ruiz on 05-27-2022 Calcium [Mass/Vol] 9.4 mg/dL 8.5-10.1 [facility] Serum or plasma creatinine m easurement (mass/volume)Ordered By: Breanne Ruiz on 05-27-2022 Creatinine [Mass/Vol] 0.91 mg/dL 0.55-1.[address] [facility] Comment on above: The validity of the calculated GFR & GFRAA in patients over 70 years has not been determined. Clinical correlation is essential. Serum or plasma urea nitroge n measurement (mass/volume)Ordered By: Breanne Ruiz on 05-27-2022 Urea nitrogen [Mass/Vol] 21 mg/dL 7-18 [facility] Thin prep Papanicolaou smear with manual screeningOrdered By: vannessa Ruiz on 05-27-2022 Thin prep Papanicolaou smear with manual screening 11 5-15 [facility] Absolute lymphocyte countOrd ered By: adalbertonorth branchchetan Ruiz on 05-17-2022 Lymphocytes Auto (Unsp spec) [#/Vol] 1.57 10*3/uL 0.83-4.51 [facility] Basophil percentageOrdered B y: Breanne Ruiz on 05-17-2022 Basophils/100 WBC (Bld) 1.3 % 0-1 [facility] Chloride [Moles/Vol] 110 mmol/L 98-107 [facility] Eosinophils/100 WBC (Bld) 5.6 % 0-5 [facility] Glucose [Mass/Vol] 109 mg/dL 74-106 [facility] Comment on above: Fasting Glucose resu lt from 100 to 125 mg/dL suggests IMPAIRED HOMEOSTASIS per A.D.A. criteria. Neutrophils (Bld) [#/Vol] 4.6 10*3/uL 2.0-7.7 [facility] Neutrophils/100 WBC (Bld) 60.7 % 47-70 [facility] Potassium [Moles/Vol] 4.0 mmol/L 3.5-5.[address] [facility] Sodium [Moles/Vol] 144 mmol/L 136-145 [facility] WBC (Bld) [#/Vol] 7.6 10*3/uL 4.4-11.0 [facility] Blood erythrocytes count (nu mber/volume)Ordered By: Breanne Ruiz on 05-17-2022 RBC (Bld) [#/Vol] 4.79 10*6/uL 4.2-5.4 [facility] Blood hemoglobin measurement (mass/volume)Ordered By: Breanne Ruiz on 05-17-2022 Hemoglobin (Bld) [Mass/Vol] 13.0 g/dL 12.0-15.0 [facility] Blood lymphocytes/100 leukoc ytesOrdered By: Breanne Ruiz on 05-17-2022 Lymphocytes/100 WBC (Bld) 20.8 % 19-41 [facility] Blood monocytes/100 leukocyt esOrdered By: [facility] on 05-17-2022 Monocytes/100 WBC (Bld) 11.2 % 0-10 [facility] Blood platelet mean volumeOr dered By: adalbertonorth branchchetan Ruiz on 05-17-2022 Platelet mean volume (Bld) [Entitic vol] 9.2 fL 6.2-12.0 [facility] Determination of erythrocyte mean corpuscular volume (MCV)Ordered By: Abbienorth branchchetan Ruiz on 05-17-2022 MCV (RBC) [Entitic vol] 91.4 fL 81-99 [facility] Hematocrit Auto (Bld) [Volum e fraction]Ordered By: Breanne Ruiz on 05-17-2022 Hematocrit (Bld) [Volume fraction] 43.8 % 37-47 [facility] Laboratory - Chemistry and C hemistry - challengeOrdered By: [facility] Kirklandbeverly 05-17-2022 CO2 [Moles/Vol] 26.0 mmol/L 21.0-32.0 [facility] Urea nitrogen/Creatinine [Mass ratio] 45.3 mg/mg 10-20 [facility] Laboratory - Hematology and Cell countsOrdered By: Breanne Ruiz on 05-17-2022 Erythrocyte distribution width (RBC) [Entitic vol] 50.4 fL 35.1-43.9 [facility] Erythrocyte distribution width (RBC) [Ratio] 15.0 % 11.6-14.6 [facility] Immature granulocytes/100 WBC (Bld) 0.400 % 0.0-0.9 [facility] Comment on above: IG% - Immature Granu locytes (promyelocytes, myelocytes and metamyelocytes) > 1% indicates that a LEFT SHIFT is Present. MCH (RBC) [Entitic mass] 27.1 pg 27.0-32.0 [facility] Nucleated RBC/100 WBC (Bld) [Ratio] 0 % 0-5 [facility] MCHC Auto (RBC) [Mass/Vol]Or dered By: Breanne Ruiz on 05-17-2022 MCHC (RBC) [Mass/Vol] 29.7 g/dL 32-[address] [facility] No Panel InformationOrdered By: Breanne Ruiz on 05-17-2022 Estimated GFR (MDRD) Amer 116 mL/min >60 [facility] Comment on above: GFR Calc Estimated GFR (MDRD) Non-Af Amer 95 mL/min >60 [facility] Comment on above: Non- GFR Calc Platelets bldOrdered By: Prashant Ruiz on 05-17-2022 Platelets (Bld) [#/Vol] 503 10*3/uL 150-450 [facility] Serum or plasma calcium jj urement (mass/volume)Ordered By: Breanne Ruiz on 05-17-2022 Calcium [Mass/Vol] 9.7 mg/dL 8.5-10.1 [facility] Serum or plasma creatinine m easurement (mass/volume)Ordered By: Breanne Ruiz on 05-17-2022 Creatinine [Mass/Vol] 0.66 mg/dL 0.55-1.[address] [facility] Comment on above: The validity of the calculated GFR & GFRAA in patients over 70 years has not been determined. Clinical correlation is essential. Serum or plasma urea nitroge n measurement (mass/volume)Ordered By: Breanne Ruiz on 05-17-2022 Urea nitrogen [Mass/Vol] 30 mg/dL 7-18 [facility] Thin prep Papanicolaou smear with manual screeningOrdered By: Breanne Ruiz on 05-17-2022 Thin prep Papanicolaou smear with manual screening 8 5-15 [facility] Absolute lymphocyte countOrd ered By: Asad Jamison on 05-03-2022 Lymphocytes Auto (Unsp spec) [#/Vol] 1.95 10*3/uL 0.83-4.51 [facility] Basophil percentageOrdered B y: Asad Jamison on 05-03-2022 Basophils/100 WBC (Bld) 0.9 % 0-1 [facility] Chloride [Moles/Vol] 103 mmol/L 98-107 [facility] Eosinophils/100 WBC (Bld) 3.9 % 0-5 [facility] Glucose [Mass/Vol] 100 mg/dL 74-106 [facility] Comment on above: Fasting Glucose resu lt from 100 to 125 mg/dL suggests IMPAIRED HOMEOSTASIS per A.D.A. criteria. Neutrophils (Bld) [#/Vol] 6.6 10*3/uL 2.0-7.7 [facility] Neutrophils/100 WBC (Bld) 66.2 % 47-70 [facility] Potassium [Moles/Vol] 4.1 mmol/L 3.5-5.[address] [facility] Comment on above: Moderate Hemolysis, Result may be falsely increased. Sodium [Moles/Vol] 139 mmol/L 136-145 [facility] WBC (Bld) [#/Vol] 10.0 10*3/uL 4.4-11.0 [facility] Blood erythrocytes count (nu mber/volume)Ordered By: Asad Jamison on 05-03-2022 RBC (Bld) [#/Vol] 4.77 10*6/uL 4.2-5.4 [facility] Blood hemoglobin measurement (mass/volume)Ordered By: Asad Jamison on 05-03-2022 Hemoglobin (Bld) [Mass/Vol] 13.2 g/dL 12.0-15.0 [facility] Blood lymphocytes/100 leukoc ytesOrdered By: Asad Jamison on 05-03-2022 Lymphocytes/100 WBC (Bld) 19.5 % 19-41 [facility] Blood monocytes/100 leukocyt esOrdered By: Asad Jamison on 05-03-2022 Monocytes/100 WBC (Bld) 8.9 % 0-10 [facility] Blood platelet mean volumeOr dered By: Asad Jamison on 05-03-2022 Platelet mean volume (Bld) [Entitic vol] 8.9 fL 6.2-12.0 [facility] Determination of erythrocyte mean corpuscular volume (MCV)Ordered By: Asad Jamison on 05-03-2022 MCV (RBC) [Entitic vol] 88.5 fL 81-99 [facility] Hematocrit Auto (Bld) [Volum e fraction]Ordered By: Asad Jamison on 05-03-2022 Hematocrit (Bld) [Volume fraction] 42.2 % 37-47 [facility] Laboratory - Chemistry and C hemistry - challengeOrdered By: Asad Jamison on 05-03-2022 CO2 [Moles/Vol] 25.0 mmol/L 21.0-32.0 [facility] Urea nitrogen/Creatinine [Mass ratio] 48.2 mg/mg 10-20 [facility] Laboratory - Hematology and Cell countsOrdered By: Asad Jamison on 05-03-2022 Erythrocyte distribution width (RBC) [Entitic vol] 48.7 fL 35.1-43.9 [facility] Erythrocyte distribution width (RBC) [Ratio] 15.0 % 11.6-14.6 [facility] Immature granulocytes/100 WBC (Bld) 0.600 % 0.0-0.9 [facility] Comment on above: IG% - Immature Granu locytes (promyelocytes, myelocytes and metamyelocytes) > 1% indicates that a LEFT SHIFT is Present. MCH (RBC) [Entitic mass] 27.7 pg 27.0-32.0 [facility] Nucleated RBC/100 WBC (Bld) [Ratio] 0 % 0-5 [facility] MCHC Auto (RBC) [Mass/Vol]Or dered By: Asad Jamison on 05-03-2022 MCHC (RBC) [Mass/Vol] 31.3 g/dL 32-[address] [facility] No Panel InformationOrdered By: Asad Jamison on 05-03-2022 Estimated GFR (MDRD) Amer 129 mL/min >60 [facility] Comment on above: GFR Calc Estimated GFR (MDRD) Non-Af Amer 107 mL/min >60 [facility] Comment on above: Non- GFR Calc Platelets bldOrdered By: Gonzales Jamison on 05-03-2022 Platelets (Bld) [#/Vol] 488 10*3/uL 150-450 [facility] Serum or plasma calcium jj urement (mass/volume)Ordered By: Asad Jamison on 05-03-2022 Calcium [Mass/Vol] 9.4 mg/dL 8.5-10.1 [facility] Serum or plasma creatinine m easurement (mass/volume)Ordered By: Asad Jamison on 05-03-2022 Creatinine [Mass/Vol] 0.60 mg/dL 0.55-1.[address] [facility] Comment on above: The validity of the calculated GFR & GFRAA in patients over 70 years has not been determined. Clinical correlation is essential. Serum or plasma urea nitroge n measurement (mass/volume)Ordered By: Asad Jamison on 05-03-2022 Urea nitrogen [Mass/Vol] 29 mg/dL 7-18 [facility] Thin prep Papanicolaou smear with manual screeningOrdered By: Asad Jamison on 05-03-2022 Thin prep Papanicolaou smear with manual screening 11 - [facility] Absolute lymphocyte countOrd ered By: Asad Jamison on 04-19-2022 Lymphocytes Auto (Unsp spec) [#/Vol] 1.80 10*3/uL 0.83-4.51 [facility] Basophil percentageOrdered B y: Asad Jamison on 04-19-2022 Basophils/100 WBC (Bld) 1.0 % 0-1 [facility] Chloride [Moles/Vol] 106 mmol/L 98-107 [facility] Eosinophils/100 WBC (Bld) 3.6 % 0-5 [facility] Glucose [Mass/Vol] 107 mg/dL 74-106 [facility] Comment on above: Fasting Glucose resu lt from 100 to 125 mg/dL suggests IMPAIRED HOMEOSTASIS per A.D.A. criteria. Neutrophils (Bld) [#/Vol] 4.6 10*3/uL 2.0-7.7 [facility] Neutrophils/100 WBC (Bld) 59.3 % 47-70 [facility] Potassium [Moles/Vol] 4.1 mmol/L 3.5-5.[address] [facility] Sodium [Moles/Vol] 140 mmol/L 136-145 [facility] WBC (Bld) [#/Vol] 7.8 10*3/uL 4.4-11.0 [facility] Blood erythrocytes count (nu mber/volume)Ordered By: Asad Jamison on 04-19-2022 RBC (Bld) [#/Vol] 4.98 10*6/uL 4.2-5.4 [facility] Blood hemoglobin measurement (mass/volume)Ordered By: Asad Jamison on 04-19-2022 Hemoglobin (Bld) [Mass/Vol] 13.1 g/dL 12.0-15.0 [facility] Blood lymphocytes/100 leukoc ytesOrdered By: Asad Jamison on 04-19-2022 Lymphocytes/100 WBC (Bld) 23.1 % 19-41 [facility] Blood monocytes/100 leukocyt esOrdered By: Asad Jamison on 04-19-2022 Monocytes/100 WBC (Bld) 12.1 % 0-10 [facility] Blood platelet mean volumeOr dered By: Asad Jamison on 04-19-2022 Platelet mean volume (Bld) [Entitic vol] 8.9 fL 6.2-12.0 [facility] Determination of erythrocyte mean corpuscular volume (MCV)Ordered By: Asad Jamison on 04-19-2022 MCV (RBC) [Entitic vol] 88.0 fL 81-99 [facility] Hematocrit Auto (Bld) [Volum e fraction]Ordered By: Asad Jamison on 04-19-2022 Hematocrit (Bld) [Volume fraction] 43.8 % 37-47 [facility] - Chemistry and C hemistry - challengeOrdered By: Asad Jamison on 04-19-2022 CO2 [Moles/Vol] 27.0 mmol/L 21.0-32.0 [facility] Urea nitrogen/Creatinine [Mass ratio] 43.6 mg/mg 10-20 [facility] Laboratory - Hematology and Cell countsOrdered By: Asad Jamison on 04-19-2022 Erythrocyte distribution width (RBC) [Entitic vol] 48.2 fL 35.1-43.9 [facility] Erythrocyte distribution width (RBC) [Ratio] 15.0 % 11.6-14.6 [facility] Immature granulocytes/100 WBC (Bld) 0.900 % 0.0-0.9 [facility] Comment on above: IG% - Immature Granu locytes (promyelocytes, myelocytes and metamyelocytes) > 1% indicates that a LEFT SHIFT is Present. MCH (RBC) [Entitic mass] 26.3 pg 27.0-32.0 [facility] Nucleated RBC/100 WBC (Bld) [Ratio] 0 % 0-5 [facility] MCHC Auto (RBC) [Mass/Vol]Or dered By: Asad Jamison on 04-19-2022 MCHC (RBC) [Mass/Vol] 29.9 g/dL 32-[address] [facility] No Panel InformationOrdered By: Asad Jamison on 04-19-2022 Estimated GFR (MDRD) Amer 130 mL/min >60 [facility] Comment on above: GFR Calc Estimated GFR (MDRD) Non-Af Amer 108 mL/min >60 [facility] Comment on above: Non- GFR Calc Platelets bldOrdered By: Gonzales Jamison on 04-19-2022 Platelets (Bld) [#/Vol] 534 10*3/uL 150-450 [facility] Serum or plasma calcium jj urement (mass/volume)Ordered By: Asad Jamison on 04-19-2022 Calcium [Mass/Vol] 9.6 mg/dL 8.5-10.1 [facility] Serum or plasma creatinine m easurement (mass/volume)Ordered By: Asad Jamison on 04-19-2022 Creatinine [Mass/Vol] 0.60 mg/dL 0.55-1.[address] [facility] Comment on above: The validity of the calculated GFR & GFRAA in patients over 70 years has not been determined. Clinical correlation is essential. Serum or plasma urea nitroge n measurement (mass/volume)Ordered By: Asad Jamison on 04-19-2022 Urea nitrogen [Mass/Vol] 26 mg/dL 7-18 [facility] Thin prep Papanicolaou smear with manual screeningOrdered By: Asad Jamison on 04-19-2022 Thin prep Papanicolaou smear with manual screening 7 -15 [facility] Absolute lymphocyte countOrd ered By: Asad Jamison on 04-05-2022 Lymphocytes Auto (Unsp spec) [#/Vol] 1.31 10*3/uL 0.83-4.51 [facility] Basophil percentageOrdered B y: Asad Jamison on 04-05-2022 Basophils/100 WBC (Bld) 1.0 % 0-1 [facility] Chloride [Moles/Vol] 108 mmol/L 98-107 [facility] Eosinophils/100 WBC (Bld) 3.6 % 0-5 [facility] Glucose [Mass/Vol] 105 mg/dL 74-106 [facility] Comment on above: Fasting Glucose resu lt from 100 to 125 mg/dL suggests IMPAIRED HOMEOSTASIS per A.D.A. criteria. Neutrophils (Bld) [#/Vol] 6.1 10*3/uL 2.0-7.7 [facility] Neutrophils/100 WBC (Bld) 68.9 % 47-70 [facility] Potassium [Moles/Vol] 4.0 mmol/L 3.5-5.[address] [facility] Sodium [Moles/Vol] 141 mmol/L 136-145 [facility] WBC (Bld) [#/Vol] 8.9 10*3/uL 4.4-11.0 [facility] Blood erythrocytes count (nu mber/volume)Ordered By: Asad Jamison on 04-05-2022 RBC (Bld) [#/Vol] 4.79 10*6/uL 4.2-5.4 [facility] Blood hemoglobin measurement (mass/volume)Ordered By: Asad Jamison on 04-05-2022 Hemoglobin (Bld) [Mass/Vol] 13.0 g/dL 12.0-15.0 [facility] Blood lymphocytes/100 leukoc ytesOrdered By: Asad Jamison on 04-05-2022 Lymphocytes/100 WBC (Bld) 14.7 % 19-41 [facility] Blood monocytes/100 leukocyt esOrdered By: Asad Jamison on 04-05-2022 Monocytes/100 WBC (Bld) 11.4 % 0-10 [facility] Blood platelet mean volumeOr dered By: Asad Jamison on 04-05-2022 Platelet mean volume (Bld) [Entitic vol] 8.7 fL 6.2-12.0 [facility] Determination of erythrocyte mean corpuscular volume (MCV)Ordered By: Asad Jamison on 04-05-2022 MCV (RBC) [Entitic vol] 87.9 fL 81-99 [facility] Hematocrit Auto (Bld) [Volum e fraction]Ordered By: Asad Jamison on 04-05-2022 Hematocrit (Bld) [Volume fraction] 42.1 % 37-47 [facility] Laboratory - Chemistry and C hemistry - challengeOrdered By: Asad Jamison on 04-05-2022 CO2 [Moles/Vol] 27.0 mmol/L 21.0-32.0 [facility] Urea nitrogen/Creatinine [Mass ratio] 44.3 mg/mg 10-20 [facility] - Hematology and Cell countsOrdered By: Asad Jamison on 04-05-2022 Erythrocyte distribution width (RBC) [Entitic vol] 49.4 fL 35.1-43.9 [facility] Erythrocyte distribution width (RBC) [Ratio] 15.3 % 11.6-14.6 [facility] Immature granulocytes/100 WBC (Bld) 0.400 % 0.0-0.9 [facility] Comment on above: IG% - Immature Granu locytes (promyelocytes, myelocytes and metamyelocytes) > 1% indicates that a LEFT SHIFT is Present. MCH (RBC) [Entitic mass] 27.1 pg 27.0-32.0 [facility] Nucleated RBC/100 WBC (Bld) [Ratio] 0 % 0-5 [facility] MCHC Auto (RBC) [Mass/Vol]Or dered By: Asad Jamison on 04-05-2022 MCHC (RBC) [Mass/Vol] 30.9 g/dL 32-[address] [facility] No Panel InformationOrdered By: Asad Jamison on 04-05-2022 Estimated GFR (MDRD) Amer 127 mL/min >60 [facility] Comment on above: GFR Calc Estimated GFR (MDRD) Non-Af Amer 105 mL/min >60 [facility] Comment on above: Non- GFR Calc Platelets bldOrdered By: Gonzales Jamison on 04-05-2022 Platelets (Bld) [#/Vol] 516 10*3/uL 150-450 [facility] Serum or plasma calcium jj urement (mass/volume)Ordered By: Asad Jamisno on 04-05-2022 Calcium [Mass/Vol] 9.6 mg/dL 8.5-10.1 [facility] Serum or plasma creatinine m easurement (mass/volume)Ordered By: Asad Jamison on 04-05-2022 Creatinine [Mass/Vol] 0.61 mg/dL 0.55-1.[address] [facility] Comment on above: The validity of the calculated GFR & GFRAA in patients over 70 years has not been determined. Clinical correlation is essential. Serum or plasma urea nitroge n measurement (mass/volume)Ordered By: Asad Jamison on 04-05-2022 Urea nitrogen [Mass/Vol] 27 mg/dL 7-18 [facility] Thin prep Papanicolaou smear with manual screeningOrdered By: Asad Jamison on 04-05-2022 Thin prep Papanicolaou smear with manual screening 6 5-15 [facility] Absolute lymphocyte countOrd ered By: Asad Jamison on 03-22-2022 Lymphocytes Auto (Unsp spec) [#/Vol] 1.60 10*3/uL 0.83-4.51 [facility] Basophil percentageOrdered B y: Asad Jamison on 03-22-2022 Basophils/100 WBC (Bld) 1.1 % 0-1 [facility] Chloride [Moles/Vol] 108 mmol/L 98-107 [facility] Eosinophils/100 WBC (Bld) 2.9 % 0-5 [facility] Glucose [Mass/Vol] 96 mg/dL 74-106 [facility] Neutrophils (Bld) [#/Vol] 5.1 10*3/uL 2.0-7.7 [facility] Neutrophils/100 WBC (Bld) 65.2 % 47-70 [facility] Potassium [Moles/Vol] 4.1 mmol/L 3.5-5.[address] [facility] Sodium [Moles/Vol] 142 mmol/L 136-145 [facility] WBC (Bld) [#/Vol] 7.9 10*3/uL 4.4-11.0 [facility] Blood erythrocytes count (nu mber/volume)Ordered By: Asad Jamison on 03-22-2022 RBC (Bld) [#/Vol] 4.84 10*6/uL 4.2-5.4 [facility] Blood hemoglobin measurement (mass/volume)Ordered By: Asad Jamison on 03-22-2022 Hemoglobin (Bld) [Mass/Vol] 13.1 g/dL 12.0-15.0 [facility] Blood lymphocytes/100 leukoc ytesOrdered By: Asad Jamison on 03-22-2022 Lymphocytes/100 WBC (Bld) 20.3 % 19-41 [facility] Blood monocytes/100 leukocyt esOrdered By: Asad Jamison on 03-22-2022 Monocytes/100 WBC (Bld) 10.2 % 0-10 [facility] Blood platelet mean volumeOr dered By: Asad Jamison on 03-22-2022 Platelet mean volume (Bld) [Entitic vol] 9.1 fL 6.2-12.0 [facility] Determination of erythrocyte mean corpuscular volume (MCV)Ordered By: Asad Jamison on 03-22-2022 MCV (RBC) [Entitic vol] 87.8 fL 81-99 [facility] Hematocrit Auto (Bld) [Volum e fraction]Ordered By: Asad Jamison on 03-22-2022 Hematocrit (Bld) [Volume fraction] 42.5 % 37-47 [facility] - Chemistry and C hemistry - challengeOrdered By: Asad Jamison on 03-22-2022 CO2 [Moles/Vol] 26.0 mmol/L 21.0-32.0 [facility] Urea nitrogen/Creatinine [Mass ratio] 34.4 mg/mg 10-20 [facility] - Hematology and Cell countsOrdered By: Asad Jamison on 03-22-2022 Erythrocyte distribution width (RBC) [Entitic vol] 48.4 fL 35.1-43.9 [facility] Erythrocyte distribution width (RBC) [Ratio] 15.0 % 11.6-14.6 [facility] Immature granulocytes/100 WBC (Bld) 0.300 % 0.0-0.9 [facility] Comment on above: IG% - Immature Granu locytes (promyelocytes, myelocytes and metamyelocytes) > 1% indicates that a LEFT SHIFT is Present. MCH (RBC) [Entitic mass] 27.1 pg 27.0-32.0 [facility] Nucleated RBC/100 WBC (Bld) [Ratio] 0 % 0-5 [facility] MCHC Auto (RBC) [Mass/Vol]Or dered By: Asad Jamison on 03-22-2022 MCHC (RBC) [Mass/Vol] 30.8 g/dL 32-[address] [facility] No Panel InformationOrdered By: Asad Jamison on 03-22-2022 Estimated GFR (MDRD) Amer 120 mL/min >60 [facility] Comment on above: GFR Calc Estimated GFR (MDRD) Non-Af Amer 99 mL/min >60 [facility] Comment on above: Non- GFR Calc Platelets bldOrdered By: Gonzales Jamison on 03-22-2022 Platelets (Bld) [#/Vol] 522 10*3/uL 150-450 [facility] Serum or plasma calcium jj urement (mass/volume)Ordered By: Asad Jamison on 03-22-2022 Calcium [Mass/Vol] 9.4 mg/dL 8.5-10.1 [facility] Serum or plasma creatinine m easurement (mass/volume)Ordered By: Asad Jamison on 03-22-2022 Creatinine [Mass/Vol] 0.64 mg/dL 0.55-1.[address] [facility] Comment on above: The validity of the calculated GFR & GFRAA in patients over 70 years has not been determined. Clinical correlation is essential. Serum or plasma urea nitroge n measurement (mass/volume)Ordered By: Asad Jamison on 03-22-2022 Urea nitrogen [Mass/Vol] 22 mg/dL 7-18 [facility] Thin prep Papanicolaou smear with manual screeningOrdered By: Asad Jamison on 03-22-2022 Thin prep Papanicolaou smear with manual screening 8 5-15 [facility] Absolute lymphocyte countOrd ered By: Asad Jamison on 03-08-2022 Lymphocytes Auto (Unsp spec) [#/Vol] 1.49 10*3/uL 0.83-4.51 [facility] Basophil percentageOrdered B y: Asad Jamison on 03-08-2022 Basophils/100 WBC (Bld) 1.3 % 0-1 [facility] Chloride [Moles/Vol] 108 mmol/L 98-107 [facility] Eosinophils/100 WBC (Bld) 3.9 % 0-5 [facility] Glucose [Mass/Vol] 105 mg/dL 74-106 [facility] Comment on above: Fasting Glucose resu lt from 100 to 125 mg/dL suggests IMPAIRED HOMEOSTASIS per A.D.A. criteria. Neutrophils (Bld) [#/Vol] 4.3 10*3/uL 2.0-7.7 [facility] Neutrophils/100 WBC (Bld) 61.3 % 47-70 [facility] Potassium [Moles/Vol] 4.1 mmol/L 3.5-5.[address] [facility] Sodium [Moles/Vol] 142 mmol/L 136-145 [facility] WBC (Bld) [#/Vol] 7.1 10*3/uL 4.4-11.0 [facility] Blood erythrocytes count (nu mber/volume)Ordered By: Asad Jamison on 03-08-2022 RBC (Bld) [#/Vol] 4.87 10*6/uL 4.2-5.4 [facility] Blood hemoglobin measurement (mass/volume)Ordered By: Asad Jamison on 03-08-2022 Hemoglobin (Bld) [Mass/Vol] 13.0 g/dL 12.0-15.0 [facility] Blood lymphocytes/100 leukoc ytesOrdered By: Asad Jamison on 03-08-2022 Lymphocytes/100 WBC (Bld) 21.0 % 19-41 [facility] Blood monocytes/100 leukocyt esOrdered By: Asad Jamison on 03-08-2022 Monocytes/100 WBC (Bld) 12.1 % 0-10 [facility] Blood platelet mean volumeOr dered By: Asad Jamison on 03-08-2022 Platelet mean volume (Bld) [Entitic vol] 8.9 fL 6.2-12.0 [facility] Determination of erythrocyte mean corpuscular volume (MCV)Ordered By: Asad Jamison on 03-08-2022 MCV (RBC) [Entitic vol] 87.9 fL 81-99 [facility] Hematocrit Auto (Bld) [Volum e fraction]Ordered By: Asad Jamison on 03-08-2022 Hematocrit (Bld) [Volume fraction] 42.8 % 37-47 [facility] - Chemistry and C hemistry - challengeOrdered By: Asad Jamison on 03-08-2022 CO2 [Moles/Vol] 27.0 mmol/L 21.0-32.0 [facility] Urea nitrogen/Creatinine [Mass ratio] 47.1 mg/mg 10-20 [facility] - Hematology and Cell countsOrdered By: Asad Jamison on 03-08-2022 Erythrocyte distribution width (RBC) [Entitic vol] 47.6 fL 35.1-43.9 [facility] Erythrocyte distribution width (RBC) [Ratio] 14.8 % 11.6-14.6 [facility] Immature granulocytes/100 WBC (Bld) 0.400 % 0.0-0.9 [facility] Comment on above: IG% - Immature Granu locytes (promyelocytes, myelocytes and metamyelocytes) > 1% indicates that a LEFT SHIFT is Present. MCH (RBC) [Entitic mass] 26.7 pg 27.0-32.0 [facility] Nucleated RBC/100 WBC (Bld) [Ratio] 0 % 0-5 [facility] MCHC Auto (RBC) [Mass/Vol]Or dered By: Asad Jamison on 03-08-2022 MCHC (RBC) [Mass/Vol] 30.4 g/dL 32-[address] [facility] No Panel InformationOrdered By: Asad Jamison on 03-08-2022 Estimated GFR (MDRD) Amer 131 mL/min >60 [facility] Comment on above: GFR Calc Estimated GFR (MDRD) Non-Af Amer 108 mL/min >60 [facility] Comment on above: Non- GFR Calc Platelets bldOrdered By: Gonzales Jamison on 03-08-2022 Platelets (Bld) [#/Vol] 521 10*3/uL 150-450 [facility] Serum or plasma calcium jj urement (mass/volume)Ordered By: Asad Jamison on 03-08-2022 Calcium [Mass/Vol] 9.5 mg/dL 8.5-10.1 [facility] Serum or plasma creatinine m easurement (mass/volume)Ordered By: Asad Jamison on 03-08-2022 Creatinine [Mass/Vol] 0.59 mg/dL 0.55-1.[address] [facility] Comment on above: The validity of the calculated GFR & GFRAA in patients over 70 years has not been determined. Clinical correlation is essential. Serum or plasma urea nitroge n measurement (mass/volume)Ordered By: Asad Jamison on 03-08-2022 Urea nitrogen [Mass/Vol] 28 mg/dL - [facility] Thin prep Papanicolaou smear with manual screeningOrdered By: Asad Jamison on 03-08-2022 Thin prep Papanicolaou smear with manual screening 7 - [facility] Absolute lymphocyte countOrd ered By: Asad Jamison on 02-22-2022 Lymphocytes Auto (Unsp spec) [#/Vol] 1.48 10*3/uL 0.83-4.51 [facility] Basophil percentageOrdered B y: Asad Jamison on 02-22-2022 Basophils/100 WBC (Bld) 1.2 % 0-1 [facility] Chloride [Moles/Vol] 109 mmol/L 98-107 [facility] Eosinophils/100 WBC (Bld) 5.9 % 0-5 [facility] Glucose [Mass/Vol] 103 mg/dL 74-106 [facility] Comment on above: Fasting Glucose resu lt from 100 to 125 mg/dL suggests IMPAIRED HOMEOSTASIS per A.D.A. criteria. Neutrophils (Bld) [#/Vol] 4.1 10*3/uL 2.0-7.7 [facility] Neutrophils/100 WBC (Bld) 58.7 % 47-70 [facility] Potassium [Moles/Vol] 4.3 mmol/L 3.5-5.[address] [facility] Sodium [Moles/Vol] 143 mmol/L 136-145 [facility] WBC (Bld) [#/Vol] 6.9 10*3/uL 4.4-11.0 [facility] Blood erythrocytes count (nu mber/volume)Ordered By: Asad Jamison on 02-22-2022 RBC (Bld) [#/Vol] 4.90 10*6/uL 4.2-5.4 [facility] Blood hemoglobin measurement (mass/volume)Ordered By: Asad Jamison on 02-22-2022 Hemoglobin (Bld) [Mass/Vol] 13.1 g/dL 12.0-15.0 [facility] Blood lymphocytes/100 leukoc ytesOrdered By: Asad Jamison on 02-22-2022 Lymphocytes/100 WBC (Bld) 21.4 % 19-41 [facility] Blood monocytes/100 leukocyt esOrdered By: Asad Jamison on 02-22-2022 Monocytes/100 WBC (Bld) 12.4 % 0-10 [facility] Blood platelet mean volumeOr dered By: Asad Jamison on 02-22-2022 Platelet mean volume (Bld) [Entitic vol] 9.0 fL 6.2-12.0 [facility] Determination of erythrocyte mean corpuscular volume (MCV)Ordered By: Asad Jamison on 02-22-2022 MCV (RBC) [Entitic vol] 88.2 fL 81-99 [facility] Hematocrit Auto (Bld) [Volum e fraction]Ordered By: Asad Jamison on 02-22-2022 Hematocrit (Bld) [Volume fraction] 43.2 % 37-47 [facility] Laboratory - Chemistry and C hemistry - challengeOrdered By: Asad Jamison on 02-22-2022 CO2 [Moles/Vol] 25.0 mmol/L 21.0-32.0 [facility] Urea nitrogen/Creatinine [Mass ratio] 48.9 mg/mg 10-20 [facility] - Hematology and Cell countsOrdered By: Asad Jamison on 02-22-2022 Erythrocyte distribution width (RBC) [Entitic vol] 48.8 fL 35.1-43.9 [facility] Erythrocyte distribution width (RBC) [Ratio] 15.1 % 11.6-14.6 [facility] Immature granulocytes/100 WBC (Bld) 0.400 % 0.0-0.9 [facility] Comment on above: IG% - Immature Granu locytes (promyelocytes, myelocytes and metamyelocytes) > 1% indicates that a LEFT SHIFT is Present. MCH (RBC) [Entitic mass] 26.7 pg 27.0-32.0 [facility] Nucleated RBC/100 WBC (Bld) [Ratio] 0 % 0-5 [facility] MCHC Auto (RBC) [Mass/Vol]Or dered By: Asad Jamison on 02-22-2022 MCHC (RBC) [Mass/Vol] 30.3 g/dL 32-[address] [facility] No Panel InformationOrdered By: Asad Jamison on 02-22-2022 Estimated GFR (MDRD) Amer 126 mL/min >60 [facility] Comment on above: GFR Calc Estimated GFR (MDRD) Non-Af Amer 104 mL/min >60 [facility] Comment on above: Non- GFR Calc Platelets bldOrdered By: Gonzales Jamison on 02-22-2022 Platelets (Bld) [#/Vol] 492 10*3/uL 150-450 [facility] Serum or plasma calcium jj urement (mass/volume)Ordered By: Asad Jamison on 02-22-2022 Calcium [Mass/Vol] 9.7 mg/dL 8.5-10.1 [facility] Serum or plasma creatinine m easurement (mass/volume)Ordered By: Asad Jamison on 02-22-2022 Creatinine [Mass/Vol] 0.61 mg/dL 0.55-1.[address] [facility] Comment on above: The validity of the calculated GFR & GFRAA in patients over 70 years has not been determined. Clinical correlation is essential. Serum or plasma urea nitroge n measurement (mass/volume)Ordered By: Asad Jamison on 02-22-2022 Urea nitrogen [Mass/Vol] 30 mg/dL 7-18 [facility] Thin prep Papanicolaou smear with manual screeningOrdered By: Asad Jamison on 02-22-2022 Thin prep Papanicolaou smear with manual screening 9 5-15 [facility] Absolute lymphocyte counton 02-08-2022 Lymphocytes Auto (Unsp spec) [#/Vol] 1.37 10*3/uL 0.83-4.51 [facility] Work Phone: Basophil percentageon 2021 Basophils/100 WBC (Bld) 1.3 % 0-1 [facility] Work Phone: Chloride [Moles/Vol] 109 mmol/L 98-107 [facility] Work Phone: Eosinophils/100 WBC (Bld) 4.0 % 0-5 [facility] Work Phone: Glucose [Mass/Vol] 99 mg/dL 74-106 [facility] Work Phone: Neutrophils (Bld) [#/Vol] 4.1 10*3/uL 2.0-7.7 [facility] Work Phone: Neutrophils/100 WBC (Bld) 59.3 % 47-70 [facility] Work Phone: Potassium [Moles/Vol] 4.1 mmol/L 3.5-5.[address] [facility] Work Phone: Sodium [Moles/Vol] 143 mmol/L 136-145 [facility] Work Phone: WBC (Bld) [#/Vol] 7.0 10*3/uL 4.4-11.0 [facility] Work Phone: Blood erythrocytes count (nu mber/volume)on 02-08-2022 RBC (Bld) [#/Vol] 5.00 10*6/uL 4.2-5.4 [facility] Blood hemoglobin measurement (mass/volume)on 02-08-2022 Hemoglobin (Bld) [Mass/Vol] 13.0 g/dL 12.0-15.0 [facility] Work Phone: Blood lymphocytes/100 leukoc yteson 02-08-2022 Lymphocytes/100 WBC (Bld) 19.7 % 19-41 [facility] Work Phone: Blood monocytes/100 leukocyt eson 02-08-2022 Monocytes/100 WBC (Bld) 15.4 % 0-10 [facility] Work Phone: Blood platelet mean volumeon 02-08-2022 Platelet mean volume (Bld) [Entitic vol] 8.6 fL 6.2-12.0 [facility] Work Phone: Determination of erythrocyte mean corpuscular volume (MCV)on 02-08-2022 MCV (RBC) [Entitic vol] 92.4 fL 81-99 [facility] Work Phone: Hematocrit Auto (Bld) [Volum e fraction]on 02-08-2022 Hematocrit (Bld) [Volume fraction] 46.2 % 37-47 [facility] Work Phone: Laboratory - Chemistry and C hemistry - challengeon 02-08-2022 CO2 [Moles/Vol] 24.0 mmol/L 21.0-32.0 [facility] Work Phone: Urea nitrogen/Creatinine [Mass ratio] 38.5 mg/mg 10-20 [facility] Work Phone: [phone] Laboratory - Hematology and Cell countson 02-08-2022 Erythrocyte distribution width (RBC) [Entitic vol] 51.8 fL 35.1-43.9 [facility] Work Phone: [phone] Erythrocyte distribution width (RBC) [Ratio] 15.3 % 11.6-14.6 [facility] Work Phone: [phone] Immature granulocytes/100 WBC (Bld) 0.300 % 0.0-0.9 [facility] Work Phone: [phone] Comment on above: IG% - Immature Granu locytes (promyelocytes, myelocytes and metamyelocytes) > 1% indicates that a LEFT SHIFT is Present. MCH (RBC) [Entitic mass] 26.0 pg 27.0-32.0 [facility] Work Phone: [phone] Nucleated RBC/100 WBC (Bld) [Ratio] 0 % 0-5 [facility] Work Phone: [phone] MCHC Auto (RBC) [Mass/Vol]on 02-08-2022 MCHC (RBC) [Mass/Vol] 28.1 g/dL 32-[address] [facility] Work Phone: No Panel Informationon 02-08 Estimated GFR (MDRD) Amer 118 mL/min >60 [facility] Work Phone: Comment on above: GFR Calc Estimated GFR (MDRD) Non-Af Amer 98 mL/min >60 [facility] Work Phone: [phone] Comment on above: Non- GFR Calc Platelets bldon 02-08-2022 Platelets (Bld) [#/Vol] 504 10*3/uL 150-450 [facility] Work Phone: [phone] Serum or plasma calcium jj urement (mass/volume)on 02-08-2022 Calcium [Mass/Vol] 10.0 mg/dL 8.5-10.1 [facility] Work Phone: [phone] Serum or plasma creatinine m easurement (mass/volume)on 02-08-2022 Creatinine [Mass/Vol] 0.65 mg/dL 0.55-1.[address] [facility] Work Phone: Comment on above: The validity of the calculated GFR & GFRAA in patients over 70 years has not been determined. Clinical correlation is essential. Serum or plasma urea nitroge n measurement (mass/volume)on 02-08-2022 Urea nitrogen [Mass/Vol] 25 mg/dL 7-18 [facility] Work Phone: Thin prep Papanicolaou smear with manual screeningon 02-08-2022 Thin prep Papanicolaou smear with manual screening 10 5-15 [facility] Work Phone: Absolute lymphocyte counton 01-25-2022 Lymphocytes Auto (Unsp spec) [#/Vol] 1.61 10*3/uL 0.83-4.51 [facility] Work Phone: Basophil percentageon 2021 Basophils/100 WBC (Bld) 1.6 % 0-1 [facility] Work Phone: Chloride [Moles/Vol] 110 mmol/L 98-107 [facility] Work Phone: Eosinophils/100 WBC (Bld) 3.6 % 0-5 [facility] Work Phone: Glucose [Mass/Vol] 109 mg/dL 74-106 [facility] Work Phone: Comment on above: Fasting Glucose resu lt from 100 to 125 mg/dL suggests IMPAIRED HOMEOSTASIS per A.D.A. criteria. Neutrophils (Bld) [#/Vol] 3.8 10*3/uL 2.0-7.7 [facility] Work Phone: Neutrophils/100 WBC (Bld) 55.5 % 47-70 [facility] Work Phone: Potassium [Moles/Vol] 4.0 mmol/L 3.5-5.[address] [facility] Work Phone: Sodium [Moles/Vol] 142 mmol/L 136-145 [facility] Work Phone: WBC (Bld) [#/Vol] 6.9 10*3/uL 4.4-11.0 [facility] Work Phone: Blood erythrocytes count (nu mber/volume)on 01-25-2022 RBC (Bld) [#/Vol] 4.66 10*6/uL 4.2-5.4 [facility] Work Phone: Blood hemoglobin measurement (mass/volume)on 01-25-2022 Hemoglobin (Bld) [Mass/Vol] 12.5 g/dL 12.0-15.0 [facility] Work Phone: Blood lymphocytes/100 leukoc yteson 01-25-2022 Lymphocytes/100 WBC (Bld) 23.4 % 19-41 [facility] Work Phone: Blood monocytes/100 leukocyt eson 01-25-2022 Monocytes/100 WBC (Bld) 15.3 % 0-10 [facility] Work Phone: Blood platelet mean volumeon 01-25-2022 Platelet mean volume (Bld) [Entitic vol] 9.0 fL 6.2-12.0 [facility] Work Phone: Determination of erythrocyte mean corpuscular volume (MCV)on 01-25-2022 MCV (RBC) [Entitic vol] 88.6 fL 81-99 [facility] Work Phone: [phone] Hematocrit Auto (Bld) [Volum e fraction]on 01-25-2022 Hematocrit (Bld) [Volume fraction] 41.3 % 37-47 [facility] Work Phone: Laboratory - Chemistry and C hemistry - challengeon 01-25-2022 CO2 [Moles/Vol] 23.0 mmol/L 21.0-32.0 [facility] Work Phone: Urea nitrogen/Creatinine [Mass ratio] 38.3 mg/mg 10-20 [facility] Work Phone: [phone] Laboratory - Hematology and Cell countson 01-25-2022 Erythrocyte distribution width (RBC) [Entitic vol] 49.9 fL 35.1-43.9 [facility] Work Phone: Erythrocyte distribution width (RBC) [Ratio] 15.4 % 11.6-14.6 [facility] Work Phone: [phone] Immature granulocytes/100 WBC (Bld) 0.600 % 0.0-0.9 [facility] Work Phone: [phone] Comment on above: IG% - Immature Granu locytes (promyelocytes, myelocytes and metamyelocytes) > 1% indicates that a LEFT SHIFT is Present. MCH (RBC) [Entitic mass] 26.8 pg 27.0-32.0 [facility] Work Phone: [phone] Nucleated RBC/100 WBC (Bld) [Ratio] 0 % 0-5 [facility] Work Phone: [phone] MCHC Auto (RBC) [Mass/Vol]on 01-25-2022 MCHC (RBC) [Mass/Vol] 30.3 g/dL 32-[address] [facility] Work Phone: No Panel Informationon 01-25 Estimated GFR (MDRD) Amer 103 mL/min >60 [facility] Work Phone: Comment on above: GFR Calc Estimated GFR (MDRD) Non-Af Amer 85 mL/min >60 [facility] Work Phone: Comment on above: Non- GFR Calc Platelets bldon 01-25-2022 Platelets (Bld) [#/Vol] 513 10*3/uL 150-450 [facility] Work Phone: [phone] Serum or plasma calcium jj urement (mass/volume)on 01-25-2022 Calcium [Mass/Vol] 9.6 mg/dL 8.5-10.1 [facility] Work Phone: [phone] Serum or plasma creatinine m easurement (mass/volume)on 01-25-2022 Creatinine [Mass/Vol] 0.73 mg/dL 0.55-1.[address] [facility] Work Phone: [phone] Comment on above: The validity of the calculated GFR & GFRAA in patients over 70 years has not been determined. Clinical correlation is essential. Serum or plasma urea nitroge n measurement (mass/volume)on 01-25-2022 Urea nitrogen [Mass/Vol] 28 mg/dL 7-18 [facility] Work Phone: Thin prep Papanicolaou smear with manual screeningon 01-25-2022 Thin prep Papanicolaou smear with manual screening 9 5-15 [facility] Work Phone: Absolute lymphocyte counton 01-11-2022 Lymphocytes Auto (Unsp spec) [#/Vol] 1.57 10*3/uL 0.83-4.51 [facility] Work Phone: Basophil percentageon 2021 Basophils/100 WBC (Bld) 1.3 % 0-1 [facility] Work Phone: Chloride [Moles/Vol] 107 mmol/L 98-107 [facility] Work Phone: Eosinophils/100 WBC (Bld) 4.7 % 0-5 [facility] Work Phone: Glucose [Mass/Vol] 89 mg/dL 74-106 [facility] Work Phone: Neutrophils (Bld) [#/Vol] 3.5 10*3/uL 2.0-7.7 [facility] Work Phone: Neutrophils/100 WBC (Bld) 56.0 % 47-70 [facility] Work Phone: Potassium [Moles/Vol] 4.0 mmol/L 3.5-5.[address] [facility] Work Phone: Sodium [Moles/Vol] 139 mmol/L 136-145 [facility] Work Phone: WBC (Bld) [#/Vol] 6.3 10*3/uL 4.4-11.0 [facility] Work Phone: Blood erythrocytes count (nu mber/volume)on 01-11-2022 RBC (Bld) [#/Vol] 4.71 10*6/uL 4.2-5.4 [facility] Work Phone: Blood hemoglobin measurement (mass/volume)on 01-11-2022 Hemoglobin (Bld) [Mass/Vol] 12.4 g/dL 12.0-15.0 [facility] Work Phone: Blood lymphocytes/100 leukoc yteson 01-11-2022 Lymphocytes/100 WBC (Bld) 24.8 % 19-41 [facility] Work Phone: Blood monocytes/100 leukocyt eson 01-11-2022 Monocytes/100 WBC (Bld) 12.7 % 0-10 [facility] Work Phone: Blood platelet mean volumeon 01-11-2022 Platelet mean volume (Bld) [Entitic vol] 8.8 fL 6.2-12.0 [facility] Work Phone: Determination of erythrocyte mean corpuscular volume (MCV)on 01-11-2022 MCV (RBC) [Entitic vol] 89.2 fL 81-99 [facility] Work Phone: Hematocrit Auto (Bld) [Volum e fraction]on 01-11-2022 Hematocrit (Bld) [Volume fraction] 42.0 % 37-47 [facility] Work Phone: Laboratory - Chemistry and C hemistry - challengeon 01-11-2022 CO2 [Moles/Vol] 26.0 mmol/L 21.0-32.0 [facility] Work Phone: Urea nitrogen/Creatinine [Mass ratio] 45.6 mg/mg 10-20 [facility] Work Phone: Laboratory - Hematology and Cell countson 01-11-2022 Erythrocyte distribution width (RBC) [Entitic vol] 51.2 fL 35.1-43.9 [facility] Work Phone: [phone] Erythrocyte distribution width (RBC) [Ratio] 15.6 % 11.6-14.6 [facility] Work Phone: [phone] Immature granulocytes/100 WBC (Bld) 0.500 % 0.0-0.9 [facility] Work Phone: Comment on above: IG% - Immature Granu locytes (promyelocytes, myelocytes and metamyelocytes) > 1% indicates that a LEFT SHIFT is Present. MCH (RBC) [Entitic mass] 26.3 pg 27.0-32.0 [facility] Work Phone: Nucleated RBC/100 WBC (Bld) [Ratio] 0 % 0-5 [facility] Work Phone: [phone] MCHC Auto (RBC) [Mass/Vol]on 01-11-2022 MCHC (RBC) [Mass/Vol] 29.5 g/dL 32-[address] [facility] Work Phone: No Panel Informationon 01-11 Estimated GFR (MDRD) Amer 158 mL/min >60 [facility] Work Phone: Comment on above: GFR Calc Estimated GFR (MDRD) Non-Af Amer 131 mL/min >60 [facility] Work Phone: Comment on above: Non- GFR Calc Platelets bldon 01-11-2022 Platelets (Bld) [#/Vol] 496 10*3/uL 150-450 [facility] Work Phone: Serum or plasma calcium jj urement (mass/volume)on 01-11-2022 Calcium [Mass/Vol] 9.7 mg/dL 8.5-10.1 [facility] Work Phone: [phone] Serum or plasma creatinine m easurement (mass/volume)on 01-11-2022 Creatinine [Mass/Vol] 0.50 mg/dL 0.55-1.[address] [facility] Work Phone: Comment on above: The validity of the calculated GFR & GFRAA in patients over 70 years has not been determined. Clinical correlation is essential. Serum or plasma urea nitroge n measurement (mass/volume)on 01-11-2022 Urea nitrogen [Mass/Vol] 23 mg/dL 7-18 [facility] Work Phone: [phone] Thin prep Papanicolaou smear with manual screeningon 01-11-2022 Thin prep Papanicolaou smear with manual screening 6 5-15 [facility] Work Phone: Absolute lymphocyte counton 12-28-2021 Lymphocytes Auto (Unsp spec) [#/Vol] 1.56 10*3/uL 0.83-4.51 [facility] Work Phone: Basophil percentageon 2021 Basophils/100 WBC (Bld) 1.1 % 0-1 [facility] Work Phone: Chloride [Moles/Vol] 106 mmol/L 98-107 [facility] Work Phone: Eosinophils/100 WBC (Bld) 3.4 % 0-5 [facility] Work Phone: Glucose [Mass/Vol] 93 mg/dL 74-106 [facility] Work Phone: Neutrophils (Bld) [#/Vol] 4.3 10*3/uL 2.0-7.7 [facility] Work Phone: Neutrophils/100 WBC (Bld) 61.0 % 47-70 [facility] Work Phone: Potassium [Moles/Vol] 3.7 mmol/L 3.5-5.[address] [facility] Work Phone: Sodium [Moles/Vol] 139 mmol/L 136-145 [facility] Work Phone: WBC (Bld) [#/Vol] 7.0 10*3/uL 4.4-11.0 [facility] Work Phone: Blood erythrocytes count (nu mber/volume)on 12-28-2021 RBC (Bld) [#/Vol] 4.69 10*6/uL 4.2-5.4 [facility] Work Phone: Blood hemoglobin measurement (mass/volume)on 12-28-2021 Hemoglobin (Bld) [Mass/Vol] 12.6 g/dL 12.0-15.0 [facility] Work Phone: Blood lymphocytes/100 leukoc yteson 12-28-2021 Lymphocytes/100 WBC (Bld) 22.2 % 19-41 [facility] Work Phone: [phone] Blood monocytes/100 leukocyt eson 12-28-2021 Monocytes/100 WBC (Bld) 11.6 % 0-10 [facility] Work Phone: Blood platelet mean volumeon 12-28-2021 Platelet mean volume (Bld) [Entitic vol] 8.5 fL 6.2-12.0 [facility] Work Phone: Determination of erythrocyte mean corpuscular volume (MCV)on 12-28-2021 MCV (RBC) [Entitic vol] 90.2 fL 81-99 [facility] Work Phone: [phone] Hematocrit Auto (Bld) [Volum e fraction]on 12-28-2021 Hematocrit (Bld) [Volume fraction] 42.3 % 37-47 [facility] Work Phone: Laboratory - Chemistry and C hemistry - challengeon 12-28-2021 CO2 [Moles/Vol] 26.0 mmol/L 21.0-32.0 [facility] Work Phone: Urea nitrogen/Creatinine [Mass ratio] 34.9 mg/mg 10-20 [facility] Work Phone: [phone] Laboratory - Hematology and Cell countson 12-28-2021 Erythrocyte distribution width (RBC) [Entitic vol] 51.9 fL 35.1-43.9 [facility] Work Phone: [phone] Erythrocyte distribution width (RBC) [Ratio] 15.9 % 11.6-14.6 [facility] Work Phone: [phone] Immature granulocytes/100 WBC (Bld) 0.700 % 0.0-0.9 [facility] Work Phone: Comment on above: IG% - Immature Granu locytes (promyelocytes, myelocytes and metamyelocytes) > 1% indicates that a LEFT SHIFT is Present. MCH (RBC) [Entitic mass] 26.9 pg 27.0-32.0 [facility] Work Phone: Nucleated RBC/100 WBC (Bld) [Ratio] 0 % 0-5 [facility] Work Phone: MCHC Auto (RBC) [Mass/Vol]on 12-28-2021 MCHC (RBC) [Mass/Vol] 29.8 g/dL 32-[address] [facility] Work Phone: No Panel Informationon 12-28 Estimated GFR (MDRD) Amer 129 mL/min >60 [facility] Work Phone: Comment on above: GFR Calc Estimated GFR (MDRD) Non-Af Amer 107 mL/min >60 [facility] Work Phone: Comment on above: Non- GFR Calc Platelets bldon 12-28-2021 Platelets (Bld) [#/Vol] 574 10*3/uL 150-450 [facility] Work Phone: Serum or plasma calcium jj urement (mass/volume)on 12-28-2021 Calcium [Mass/Vol] 9.7 mg/dL 8.5-10.1 [facility] Work Phone: Serum or plasma creatinine m easurement (mass/volume)on 12-28-2021 Creatinine [Mass/Vol] 0.60 mg/dL 0.55-1.[address] [facility] Work Phone: Comment on above: The validity of the calculated GFR & GFRAA in patients over 70 years has not been determined. Clinical correlation is essential. Serum or plasma urea nitroge n measurement (mass/volume)on 12-28-2021 Urea nitrogen [Mass/Vol] 21 mg/dL 7-18 [facility] Work Phone: Thin prep Papanicolaou smear with manual screeningon 12-28-2021 Thin prep Papanicolaou smear with manual screening 7 5-15 [facility] Work Phone: Absolute lymphocyte counton 12-14-2021 Lymphocytes Auto (Unsp spec) [#/Vol] 1.34 10*3/uL 0.83-4.51 [facility] Work Phone: Basophil percentageon 2021 Basophils/100 WBC (Bld) 1.1 % 0-1 [facility] Work Phone: Chloride [Moles/Vol] 106 mmol/L 98-107 [facility] Work Phone: Eosinophils/100 WBC (Bld) 2.3 % 0-5 [facility] Work Phone: Glucose [Mass/Vol] 94 mg/dL 74-106 [facility] Work Phone: Neutrophils (Bld) [#/Vol] 6.7 10*3/uL 2.0-7.7 [facility] Work Phone: Neutrophils/100 WBC (Bld) 70.8 % 47-70 [facility] Work Phone: Potassium [Moles/Vol] 3.6 mmol/L 3.5-5.[address] [facility] Work Phone: Sodium [Moles/Vol] 143 mmol/L 136-145 [facility] Work Phone: WBC (Bld) [#/Vol] 9.4 10*3/uL 4.4-11.0 [facility] Work Phone: Blood erythrocytes count (nu mber/volume)on 12-14-2021 RBC (Bld) [#/Vol] 4.55 10*6/uL 4.2-5.4 [facility] Work Phone: Blood hemoglobin measurement (mass/volume)on 12-14-2021 Hemoglobin (Bld) [Mass/Vol] 11.9 g/dL 12.0-15.0 [facility] Work Phone: Blood lymphocytes/100 leukoc yteson 12-14-2021 Lymphocytes/100 WBC (Bld) 14.2 % 19-41 [facility] Work Phone: Blood monocytes/100 leukocyt eson 12-14-2021 Monocytes/100 WBC (Bld) 11.0 % 0-10 [facility] Work Phone: [phone] Blood platelet mean volumeon 12-14-2021 Platelet mean volume (Bld) [Entitic vol] 9.0 fL 6.2-12.0 [facility] Work Phone: [phone] Determination of erythrocyte mean corpuscular volume (MCV)on 12-14-2021 MCV (RBC) [Entitic vol] 90.1 fL 81-99 [facility] Work Phone: [phone] Hematocrit Auto (Bld) [Volum e fraction]on 12-14-2021 Hematocrit (Bld) [Volume fraction] 41.0 % 37-47 [facility] Work Phone: [phone] Laboratory - Chemistry and C hemistry - challengeon 12-14-2021 CO2 [Moles/Vol] 30.0 mmol/L 21.0-32.0 [facility] Work Phone: [phone] Urea nitrogen/Creatinine [Mass ratio] 40.1 mg/mg 10-20 [facility] Work Phone: [phone] Laboratory - Hematology and Cell countson 12-14-2021 Erythrocyte distribution width (RBC) [Entitic vol] 53.1 fL 35.1-43.9 [facility] Work Phone: [phone] Erythrocyte distribution width (RBC) [Ratio] 15.9 % 11.6-14.6 [facility] Work Phone: [phone] Immature granulocytes/100 WBC (Bld) 0.600 % 0.0-0.9 [facility] Work Phone: [phone] Comment on above: IG% - Immature Granu locytes (promyelocytes, myelocytes and metamyelocytes) > 1% indicates that a LEFT SHIFT is Present. MCH (RBC) [Entitic mass] 26.2 pg 27.0-32.0 [facility] Work Phone: [phone] Nucleated RBC/100 WBC (Bld) [Ratio] 0 % 0-5 [facility] Work Phone: [phone] MCHC Auto (RBC) [Mass/Vol]on 12-14-2021 MCHC (RBC) [Mass/Vol] 29.0 g/dL 32-[address] [facility] Work Phone: No Panel Informationon 12-14 Estimated GFR (MDRD) Amer 144 mL/min >60 [facility] Work Phone: Comment on above: GFR Calc Estimated GFR (MDRD) Non-Af Amer 119 mL/min >60 [facility] Work Phone: Comment on above: Non- GFR Calc Platelets bldon 12-14-2021 Platelets (Bld) [#/Vol] 567 10*3/uL 150-450 [facility] Work Phone: Serum or plasma calcium jj urement (mass/volume)on 12-14-2021 Calcium [Mass/Vol] 9.6 mg/dL 8.5-10.1 [facility] Work Phone: Serum or plasma creatinine m easurement (mass/volume)on 12-14-2021 Creatinine [Mass/Vol] 0.55 mg/dL 0.55-1.[address] [facility] Work Phone: Comment on above: The validity of the calculated GFR & GFRAA in patients over 70 years has not been determined. Clinical correlation is essential. Serum or plasma urea nitroge n measurement (mass/volume)on 12-14-2021 Urea nitrogen [Mass/Vol] 22 mg/dL 7-18 [facility] Work Phone: [phone] Thin prep Papanicolaou smear with manual screeningon 12-14-2021 Thin prep Papanicolaou smear with manual screening 7 5-15 [facility] Work Phone: [phone] Absolute lymphocyte counton 11-16-2021 Lymphocytes Auto (Unsp spec) [#/Vol] 1.38 10*3/uL 0.83-4.51 [facility] Work Phone: Basophil percentageon 2021 Basophils/100 WBC (Bld) 1.1 % 0-1 [facility] Work Phone: [phone] Chloride [Moles/Vol] 106 mmol/L 98-107 [facility] Work Phone: Eosinophils/100 WBC (Bld) 3.7 % 0-5 [facility] Work Phone: Glucose [Mass/Vol] 100 mg/dL 74-106 [facility] Work Phone: Comment on above: Fasting Glucose resu lt from 100 to 125 mg/dL suggests IMPAIRED HOMEOSTASIS per A.D.A. criteria. Neutrophils (Bld) [#/Vol] 4.5 10*3/uL 2.0-7.7 [facility] Work Phone: Neutrophils/100 WBC (Bld) 61.9 % 47-70 [facility] Work Phone: Potassium [Moles/Vol] 3.7 mmol/L 3.5-5.[address] [facility] Work Phone: Sodium [Moles/Vol] 142 mmol/L 136-145 [facility] Work Phone: WBC (Bld) [#/Vol] 7.3 10*3/uL 4.4-11.0 [facility] Work Phone: Blood erythrocytes count (nu mber/volume)on 11-16-2021 RBC (Bld) [#/Vol] 4.38 10*6/uL 4.2-5.4 [facility] Work Phone: Blood hemoglobin measurement (mass/volume)on 11-16-2021 Hemoglobin (Bld) [Mass/Vol] 11.6 g/dL 12.0-15.0 [facility] Work Phone: Blood lymphocytes/100 leukoc yteson 11-16-2021 Lymphocytes/100 WBC (Bld) 18.9 % 19-41 [facility] Work Phone: Blood monocytes/100 leukocyt eson 11-16-2021 Monocytes/100 WBC (Bld) 13.0 % 0-10 [facility] Work Phone: Blood platelet mean volumeon 11-16-2021 Platelet mean volume (Bld) [Entitic vol] 8.5 fL 6.2-12.0 [facility] Work Phone: [phone] Determination of erythrocyte mean corpuscular volume (MCV)on 11-16-2021 MCV (RBC) [Entitic vol] 90.6 fL 81-99 [facility] Work Phone: [phone] Hematocrit Auto (Bld) [Volum e fraction]on 11-16-2021 Hematocrit (Bld) [Volume fraction] 39.7 % 37-47 [facility] Work Phone: [phone] Laboratory - Chemistry and C hemistry - challengeon 11-16-2021 CO2 [Moles/Vol] 30.0 mmol/L 21.0-32.0 [facility] Work Phone: [phone] Urea nitrogen/Creatinine [Mass ratio] 23.4 mg/mg 10-20 [facility] Work Phone: [phone] Laboratory - Hematology and Cell countson 11-16-2021 Erythrocyte distribution width (RBC) [Entitic vol] 54.2 fL 35.1-43.9 [facility] Work Phone: [phone] Erythrocyte distribution width (RBC) [Ratio] 16.2 % 11.6-14.6 [facility] Work Phone: [phone] Immature granulocytes/100 WBC (Bld) 1.400 % 0.0-0.9 [facility] Work Phone: [phone] Comment on above: IG% - Immature Granu locytes (promyelocytes, myelocytes and metamyelocytes) > 1% indicates that a LEFT SHIFT is Present. MCH (RBC) [Entitic mass] 26.5 pg 27.0-32.0 [facility] Work Phone: [phone] Nucleated RBC/100 WBC (Bld) [Ratio] 0 % 0-5 [facility] Work Phone: [phone] MCHC Auto (RBC) [Mass/Vol]on 11-16-2021 MCHC (RBC) [Mass/Vol] 29.2 g/dL 32-36 [facility] Work Phone: [phone] No Panel Informationon 11-16 Estimated GFR (MDRD) Amer 142 mL/min >60 [facility] Work Phone: Comment on above: GFR Calc Estimated GFR (MDRD) Non-Af Amer 117 mL/min >60 [facility] Work Phone: Comment on above: Non- GFR Calc Platelets bldon 11-16-2021 Platelets (Bld) [#/Vol] 584 10*3/uL 150-450 [facility] Work Phone: Serum or plasma calcium jj urement (mass/volume)on 11-16-2021 Calcium [Mass/Vol] 9.4 mg/dL 8.5-10.1 [facility] Work Phone: Serum or plasma creatinine m easurement (mass/volume)on 11-16-2021 Creatinine [Mass/Vol] 0.56 mg/dL 0.55-1.[address] [facility] Work Phone: Comment on above: The validity of the calculated GFR & GFRAA in patients over 70 years has not been determined. Clinical correlation is essential. Serum or plasma urea nitroge n measurement (mass/volume)on 11-16-2021 Urea nitrogen [Mass/Vol] 13 mg/dL 7-18 [facility] Work Phone: Thin prep Papanicolaou smear with manual screeningon 11-16-2021 Thin prep Papanicolaou smear with manual screening 6 5-15 [facility] Work Phone: Absolute lymphocyte counton 11-02-2021 Lymphocytes Auto (Unsp spec) [#/Vol] 1.38 10*3/uL 0.83-4.51 [facility] Work Phone: Basophil percentageon 2021 Basophils/100 WBC (Bld) 1.1 % 0-1 [facility] Work Phone: Chloride [Moles/Vol] 100 mmol/L 98-107 [facility] Work Phone: Eosinophils/100 WBC (Bld) 4.3 % 0-5 [facility] Work Phone: Glucose [Mass/Vol] 78 mg/dL 74-106 [facility] Work Phone: Neutrophils (Bld) [#/Vol] 6.8 10*3/uL 2.0-7.7 [facility] Work Phone: Neutrophils/100 WBC (Bld) 69.5 % 47-70 [facility] Work Phone: Potassium [Moles/Vol] 3.5 mmol/L 3.5-5.[address] [facility] Work Phone: Sodium [Moles/Vol] 138 mmol/L 136-145 [facility] Work Phone: WBC (Bld) [#/Vol] 9.8 10*3/uL 4.4-11.0 [facility] Work Phone: Blood erythrocytes count (nu mber/volume)on 11-02-2021 RBC (Bld) [#/Vol] 4.58 10*6/uL 4.2-5.4 [facility] Work Phone: Blood hemoglobin measurement (mass/volume)on 11-02-2021 Hemoglobin (Bld) [Mass/Vol] 12.2 g/dL 12.0-15.0 [facility] Work Phone: Blood lymphocytes/100 leukoc yteson 11-02-2021 Lymphocytes/100 WBC (Bld) 14.1 % 19-41 [facility] Work Phone: Blood monocytes/100 leukocyt eson 11-02-2021 Monocytes/100 WBC (Bld) 9.1 % 0-10 [facility] Work Phone: Blood platelet mean volumeon 11-02-2021 Platelet mean volume (Bld) [Entitic vol] 8.2 fL 6.2-12.0 [facility] Work Phone: Determination of erythrocyte mean corpuscular volume (MCV)on 11-02-2021 MCV (RBC) [Entitic vol] 90.2 fL 81-99 [facility] Work Phone: [phone] Hematocrit Auto (Bld) [Volum e fraction]on 11-02-2021 Hematocrit (Bld) [Volume fraction] 41.3 % 37-47 [facility] Work Phone: [phone] Laboratory - Chemistry and C hemistry - challengeon 11-02-2021 CO2 [Moles/Vol] 31.0 mmol/L 21.0-32.0 [facility] Work Phone: [phone] Urea nitrogen/Creatinine [Mass ratio] 35.8 mg/mg 10-20 [facility] Work Phone: [phone] Laboratory - Hematology and Cell countson 11-02-2021 Erythrocyte distribution width (RBC) [Entitic vol] 51.6 fL 35.1-43.9 [facility] Work Phone: [phone] Erythrocyte distribution width (RBC) [Ratio] 15.7 % 11.6-14.6 [facility] Work Phone: [phone] Immature granulocytes/100 WBC (Bld) 1.900 % 0.0-0.9 [facility] Work Phone: [phone] Comment on above: IG% - Immature Granu locytes (promyelocytes, myelocytes and metamyelocytes) > 1% indicates that a LEFT SHIFT is Present. MCH (RBC) [Entitic mass] 26.6 pg 27.0-32.0 [facility] Work Phone: [phone] Nucleated RBC/100 WBC (Bld) [Ratio] 0 % 0-5 [facility] Work Phone: [phone] MCHC Auto (RBC) [Mass/Vol]on 11-02-2021 MCHC (RBC) [Mass/Vol] 29.5 g/dL 32-36 [facility] Work Phone: [phone] Panel Informationon 11-02 Estimated GFR (MDRD) Amer 133 mL/min >60 [facility] Work Phone: [phone] Comment on above: GFR Calc Estimated GFR (MDRD) Non-Af Amer 110 mL/min >60 [facility] Work Phone: Comment on above: Non- GFR Calc Platelets bldon 11-02-2021 Platelets (Bld) [#/Vol] 545 10*3/uL 150-450 [facility] Work Phone: Serum or plasma calcium jj urement (mass/volume)on 11-02-2021 Calcium [Mass/Vol] 9.6 mg/dL 8.5-10.1 [facility] Work Phone: Serum or plasma creatinine m easurement (mass/volume)on 11-02-2021 Creatinine [Mass/Vol] 0.59 mg/dL 0.55-1.[address] [facility] Work Phone: Comment on above: The validity of the calculated GFR & GFRAA in patients over 70 years has not been determined. Clinical correlation is essential. Serum or plasma urea nitroge n measurement (mass/volume)on 11-02-2021 Urea nitrogen [Mass/Vol] 21 mg/dL 7-18 [facility] Work Phone: Thin prep Papanicolaou smear with manual screeningon 11-02-2021 Thin prep Papanicolaou smear with manual screening 7 5-15 [facility] Work Phone: Absolute lymphocyte counton 10-25-2021 Lymphocytes Auto (Unsp spec) [#/Vol] 1.29 10*3/uL 0.83-4.51 [facility] Work Phone: Basophil percentageon 2021 Basophils/100 WBC (Bld) 0.8 % 0-1 [facility] Work Phone: Chloride [Moles/Vol] 106 mmol/L 98-107 [facility] Work Phone: Eosinophils/100 WBC (Bld) 2.0 % 0-5 [facility] Work Phone: Glucose [Mass/Vol] 106 mg/dL 74-106 [facility] Work Phone: Comment on above: Fasting Glucose resu lt from 100 to 125 mg/dL suggests IMPAIRED HOMEOSTASIS per A.D.A. criteria. Neutrophils (Bld) [#/Vol] 13.8 10*3/uL 2.0-7.7 [facility] Work Phone: [phone] Neutrophils/100 WBC (Bld) 79.4 % 47-70 [facility] Work Phone: [phone] Potassium [Moles/Vol] 4.3 mmol/L 3.5-5.1 [facility] Work Phone: [phone] Comment on above: Slight Hemolysis, Re sult may be falsely increased. Sodium [Moles/Vol] 137 mmol/L 136-145 [facility] Work Phone: [phone] WBC (Bld) [#/Vol] 17.3 10*3/uL 4.4-11.0 [facility] Work Phone: [phone] Blood erythrocytes count (nu mber/volume)on 10-25-2021 RBC (Bld) [#/Vol] 4.91 10*6/uL 4.2-5.4 [facility] Work Phone: [phone] Blood hemoglobin measurement (mass/volume)on 10-25-2021 Hemoglobin (Bld) [Mass/Vol] 13.4 g/dL 12.0-15.0 [facility] Work Phone: [phone] Blood lymphocytes/100 leukoc yteson 10-25-2021 Lymphocytes/100 WBC (Bld) 7.5 % 19-41 [facility] Work Phone: [phone] Blood monocytes/100 leukocyt eson 10-25-2021 Monocytes/100 WBC (Bld) 7.9 % 0-10 [facility] Work Phone: [phone] Blood platelet mean volumeon 10-25-2021 Platelet mean volume (Bld) [Entitic vol] 8.6 fL 6.2-12.0 [facility] Work Phone: [phone] Determination of erythrocyte mean corpuscular volume (MCV)on 10-25-2021 MCV (RBC) [Entitic vol] 87.8 fL 81-99 [facility] Work Phone: [phone] Hematocrit Auto (Bld) [Volum e fraction]on 10-25-2021 Hematocrit (Bld) [Volume fraction] 43.1 % 37-47 [facility] Work Phone: Laboratory - Chemistry and C hemistry - challengeon 10-25-2021 CO2 [Moles/Vol] 24.0 mmol/L 21.0-32.0 [facility] Work Phone: [phone] Urea nitrogen/Creatinine [Mass ratio] 18.2 mg/mg 10-20 [facility] Work Phone: [phone] Laboratory - Hematology and Cell countson 10-25-2021 Erythrocyte distribution width (RBC) [Entitic vol] 49.2 fL 35.1-43.9 [facility] Work Phone: [phone] Erythrocyte distribution width (RBC) [Ratio] 15.5 % 11.6-14.6 [facility] Work Phone: [phone] Immature granulocytes/100 WBC (Bld) 2.400 % 0.0-0.9 [facility] Work Phone: [phone] Comment on above: IG% - Immature Granu locytes (promyelocytes, myelocytes and metamyelocytes) > 1% indicates that a LEFT SHIFT is Present. MCH (RBC) [Entitic mass] 27.3 pg 27.0-32.0 [facility] Work Phone: Nucleated RBC/100 WBC (Bld) [Ratio] 0 % 0-5 [facility] Work Phone: [phone] MCHC Auto (RBC) [Mass/Vol]on 10-25-2021 MCHC (RBC) [Mass/Vol] 31.1 g/dL 32-[address] [facility] Work Phone: [phone] Panel Informationon 10-25 Estimated GFR (MDRD) Amer 84 mL/min >60 [facility] Work Phone: [phone] Comment on above: GFR Calc Estimated GFR (MDRD) Non-Af Amer 69 mL/min >60 [facility] Work Phone: [phone] Comment on above: Non- GFR Calc Platelets bldon 10-25-2021 Platelets (Bld) [#/Vol] 614 10*3/uL 150-450 [facility] Work Phone: Serum or plasma calcium jj urement (mass/volume)on 10-25-2021 Calcium [Mass/Vol] 8.9 mg/dL 8.5-10.1 [facility] Work Phone: Serum or plasma creatinine m easurement (mass/volume)on 10-25-2021 Creatinine [Mass/Vol] 0.88 mg/dL 0.55-1.[address] [facility] Work Phone: Comment on above: The validity of the calculated GFR & GFRAA in patients over 70 years has not been determined. Clinical correlation is essential. Serum or plasma urea nitroge n measurement (mass/volume)on 10-25-2021 Urea nitrogen [Mass/Vol] 16 mg/dL 7-18 [facility] Work Phone: Thin prep Papanicolaou smear with manual screeningon 10-25-2021 Thin prep Papanicolaou smear with manual screening 7 5-15 [facility] Work Phone: Absolute lymphocyte counton 10-18-2021 Lymphocytes Auto (Unsp spec) [#/Vol] 2.05 10*3/uL 0.83-4.51 [facility] Work Phone: Basophil percentageon 2021 Basophil percentage Not Reportable [facility] Work Phone: Chloride [Moles/Vol] 97 mmol/L 98-107 [facility] Work Phone: Glucose [Mass/Vol] 120 mg/dL 74-106 [facility] Work Phone: Comment on above: Fasting Glucose resu lt from 100 to 125 mg/dL suggests IMPAIRED HOMEOSTASIS per A.D.A. criteria. Neutrophils (Bld) [#/Vol] 12.6 10*3/uL 2.0-7.7 [facility] Work Phone: Potassium [Moles/Vol] 4.7 mmol/L 3.5-5.[address] [facility] Work Phone: Sodium [Moles/Vol] 131 mmol/L 136-145 [facility] Work Phone: WBC (Bld) [#/Vol] 18.6 10*3/uL 4.4-11.0 [facility] Work Phone: Bilirubin Test strip Ql (U)o n 10-18-2021 Bilirubin Ql (U) Negative Negative [facility] Work Phone: Blood eosinophils/100 leukoc yteson 10-18-2021 Eosinophils/100 WBC (Bld) 2 % 0-5 [facility] Work Phone: Blood erythrocytes count (nu mber/volume)on 10-18-2021 RBC (Bld) [#/Vol] 4.24 10*6/uL 4.2-5.4 [facility] Work Phone: Blood hemoglobin measurement (mass/volume)on 10-18-2021 Hemoglobin (Bld) [Mass/Vol] 11.6 g/dL 12.0-15.0 [facility] Work Phone: Blood lymphocytes/100 leukoc yteson 10-18-2021 Lymphocytes/100 WBC (Bld) 11 % 19-41 [facility] Work Phone: Blood metamyelocytes/100 papa kocyteson 10-18-2021 Metamyelocytes/100 WBC (Bld) 6 % 0-1 [facility] Work Phone: Blood monocytes/100 leukocyt eson 10-18-2021 Monocytes/100 WBC (Bld) 8 % 0-10 [facility] Work Phone: Blood platelet adequacy dete ction by light microscopyon 10-18-2021 Platelets LM Ql (Bld) MOD INC ADEQ [facility] Work Phone: Blood platelet mean volumeon 10-18-2021 Platelet mean volume (Bld) [Entitic vol] 8.6 fL 6.2-12.0 [facility] Work Phone: Blood promyelocytes/100 leuk ocyteson 10-18-2021 Promyelocytes/100 WBC (Bld) 1 % 0-0 [facility] Work Phone: [phone] Blood segmented neutrophils/ 100 leukocyteson 10-18-2021 Segmented neutrophils/100 WBC (Bld) 68 % 47-70 [facility] Work Phone: Culture, urineon 10-18-2021 Bacteria identified Cx Nom (U) Mixed Gram Pos & Gram Neg Org [facility] Work Phone: [phone] Bacteria identified Cx Nom (U) Yeast [facility] Work Phone: [phone] Determination of erythrocyte mean corpuscular volume (MCV)on 10-18-2021 MCV (RBC) [Entitic vol] 89.6 fL 81-99 [facility] Work Phone: [phone] Hematocrit Auto (Bld) [Volum e fraction]on 10-18-2021 Hematocrit (Bld) [Volume fraction] 38.0 % 37-47 [facility] Work Phone: [phone] Ketones Test strip Ql (U)on 10-18-2021 Ketones Ql (U) Negative Negative [facility] Work Phone: Laboratory - Chemistry and C hemistry - challengeon 10-18-2021 CO2 [Moles/Vol] 24.0 mmol/L 21.0-32.0 [facility] Work Phone: [phone] Urea nitrogen/Creatinine [Mass ratio] 49.9 mg/mg 10-20 [facility] Work Phone: [phone] Laboratory - Hematology and Cell countson 10-18-2021 Erythrocyte distribution width (RBC) [Entitic vol] 48.5 fL 35.1-43.9 [facility] Work Phone: [phone] Erythrocyte distribution width (RBC) [Ratio] 14.9 % 11.6-14.6 [facility] Work Phone: [phone] MCH (RBC) [Entitic mass] 27.4 pg 27.0-32.0 [facility] Work Phone: Myelocytes/100 WBC (Bld) 4 % 0-0 [facility] Work Phone: MCHC Auto (RBC) [Mass/Vol]on 10-18-2021 MCHC (RBC) [Mass/Vol] 30.5 g/dL 32-[address] [facility] Work Phone: Nitrite Test strip Ql (U)on 10-18-2021 Nitrite Ql (U) Negative Negative [facility] Work Phone: No Panel Informationon 10-18 Estimated GFR (MDRD) Amer 129 mL/min >60 [facility] Work Phone: Comment on above: GFR Calc Estimated GFR (MDRD) Non-Af Amer 107 mL/min >60 [facility] Work Phone: Comment on above: Non- GFR Calc Platelets bldon 10-18-2021 Platelets (Bld) [#/Vol] 561 10*3/uL 150-450 [facility] Work Phone: Protein Test strip Ql (U)on 10-18-2021 Protein Ql (U) 15 mg/dl Negative [facility] Work Phone: RBC morphologyon 10-18-2021 RBC morphology finding Nom (Bld) NORM C+C NORMAL NORM C&C [facility] Work Phone: Review by pathologiston 10-03 Pathologist review Shaan (Unsp spec) [Interp] Reviewed [facility] Work Phone: Comment on above: Previous reported re sult: Kori isaacs Edited by: RGOOD on 10/19/21:1241Leukocytosis with Neutrophilic left shift. Thrombocytosis.Clinical correlation necessary.Je Browne M.D. 10/19/21 AMENDED REPORT 10/19/21 1241 PATH REV previously reported as: Kori isaacs Serum or plasma calcium jj urement (mass/volume)on 10-18-2021 Calcium [Mass/Vol] 9.6 mg/dL 8.5-10.1 [facility] Work Phone: Serum or plasma creatinine m easurement (mass/volume)on 10-18-2021 Creatinine [Mass/Vol] 0.60 mg/dL 0.55-1.[address] [facility] Work Phone: Comment on above: The validity of the calculated GFR & GFRAA in patients over 70 years has not been determined. Clinical correlation is essential. Serum or plasma urea nitroge n measurement (mass/volume)on 10-18-2021 Urea nitrogen [Mass/Vol] 30 mg/dL 7-18 [facility] Work Phone: Thin prep Papanicolaou smear with manual screeningon 10-18-2021 Thin prep Papanicolaou smear with manual screening 10 5-15 [facility] Work Phone: [phone] Total cell counton 2 Cells counted Molgen (Bld/Tiss) [#] 100 MANUAL DIFF [facility] Work Phone: Urine blood detectionon 10-03 RBC Ql (U) Negative Negative [facility] Work Phone: Urine clarityon 10-18-2021 Clarity (U) Clear Clear [facility] Work Phone: Urine color determinationon 10-18-2021 Color (U) Yellow Yellow [facility] Work Phone: Urine glucose detectionon Glucose Ql (U) Normal mg/dl Normal [facility] Work Phone: Urine leukocyte esterase det ection by dipstickon 10-18-2021 Leukocyte esterase Test strip Ql (U) Negative Negative [facility] Work Phone: Urine pHon 10-18-2021 pH (U) 6.0 [pH] 5.0 - 8.0 [facility] Work Phone: Urine specific gravity measu rementon 10-18-2021 Specific gravity (U) [Rel density] 1.015 1.002-1.030 [facility] Work Phone: Urobilinogen Auto test strip Ql (U)on 10-18-2021 Urobilinogen Ql (U) Normal mg/dl Normal [facility] Work Phone: Absolute lymphocyte counton 10-11-2021 Lymphocytes Auto (Unsp spec) [#/Vol] 1.28 10*3/uL 0.83-4.51 [facility] Work Phone: Basophil percentageon 2021 Basophils/100 WBC (Bld) 0.5 % 0-1 [facility] Work Phone: Bilirubin [Mass/Vol] 0.40 mg/dL 0.20-1.00 [facility] Work Phone: [phone] Comment on above: For patients on eltr ombopag therapy, use of Dimension [place] TBIL is not recommended. Chloride [Moles/Vol] 102 mmol/L 98-107 [facility] Work Phone: Eosinophils/100 WBC (Bld) 3.5 % 0-5 [facility] Work Phone: Glucose [Mass/Vol] 130 mg/dL 74-106 [facility] Work Phone: Comment on above: Fasting Glucose resu lt greater than or equal to 126 mg/dL suggests DIABETES MELLITUS per A.D.A. criteria. Neutrophils (Bld) [#/Vol] 10.0 10*3/uL 2.0-7.7 [facility] Work Phone: Neutrophils/100 WBC (Bld) 74.6 % 47-70 [facility] Work Phone: Potassium [Moles/Vol] 4.0 mmol/L 3.5-5.[address] [facility] Work Phone: Protein [Mass/Vol] 6.3 g/dL 6.4-8.2 [facility] Work Phone: Sodium [Moles/Vol] 137 mmol/L 136-145 [facility] Work Phone: WBC (Bld) [#/Vol] 13.4 10*3/uL 4.4-11.0 [facility] Work Phone: Blood erythrocytes count (nu mber/volume)on 10-11-2021 RBC (Bld) [#/Vol] 4.57 10*6/uL 4.2-5.4 [facility] Work Phone: [phone] Blood hemoglobin measurement (mass/volume)on 10-11-2021 Hemoglobin (Bld) [Mass/Vol] 12.4 g/dL 12.0-15.0 [facility] Work Phone: [phone] Blood lymphocytes/100 leukoc yteson 10-11-2021 Lymphocytes/100 WBC (Bld) 9.6 % 19-41 [facility] Work Phone: [phone] Blood monocytes/100 leukocyt eson 10-11-2021 Monocytes/100 WBC (Bld) 9.0 % 0-10 [facility] Work Phone: [phone] Blood platelet mean volumeon 10-11-2021 Platelet mean volume (Bld) [Entitic vol] 9.2 fL 6.2-12.0 [facility] Work Phone: [phone] Determination of erythrocyte mean corpuscular volume (MCV)on 10-11-2021 MCV (RBC) [Entitic vol] 90.2 fL 81-99 [facility] Work Phone: [phone] Hematocrit Auto (Bld) [Volum e fraction]on 10-11-2021 Hematocrit (Bld) [Volume fraction] 41.2 % 37-47 [facility] Work Phone: [phone] Laboratory - Chemistry and C hemistry - challengeon 10-11-2021 ALP [Catalytic activity/Vol] 79 U/L 45-117 [facility] Work Phone: [phone] ALT [Catalytic activity/Vol] 120 U/L 13-56 [facility] Work Phone: [phone] CO2 [Moles/Vol] 27.0 mmol/L 21.0-32.0 [facility] Work Phone: [phone] Globulin (S) [Mass/Vol] 4.5 g/dL 2.2-4.2 [facility] Work Phone: Urea nitrogen/Creatinine [Mass ratio] 64.6 mg/mg 10-20 [facility] Work Phone: [phone] Laboratory - Hematology and Cell countson 10-11-2021 Erythrocyte distribution width (RBC) [Entitic vol] 47.8 fL 35.1-43.9 [facility] Work Phone: [phone] Erythrocyte distribution width (RBC) [Ratio] 14.5 % 11.6-14.6 [facility] Work Phone: [phone] Immature granulocytes/100 WBC (Bld) 2.800 % 0.0-0.9 [facility] Work Phone: [phone] Comment on above: IG% - Immature Granu locytes (promyelocytes, myelocytes and metamyelocytes) > 1% indicates that a LEFT SHIFT is Present. MCH (RBC) [Entitic mass] 27.1 pg 27.0-32.0 [facility] Work Phone: [phone] Nucleated RBC/100 WBC (Bld) [Ratio] 0 % 0-5 [facility] Work Phone: [phone] MCHC Auto (RBC) [Mass/Vol]on 10-11-2021 MCHC (RBC) [Mass/Vol] 30.1 g/dL 32-[address] [facility] Work Phone: [phone] Panel Informationon 10-11 Estimated GFR (MDRD) Amer 168 mL/min >60 [facility] Work Phone: [phone] Comment on above: GFR Calc Estimated GFR (MDRD) Non-Af Amer 139 mL/min >60 [facility] Work Phone: [phone] Comment on above: Non- GFR Calc Platelets bldon 10-11-2021 Platelets (Bld) [#/Vol] 369 10*3/uL 150-450 [facility] Work Phone: [phone] Serum or plasma albumin jj urement (mass/volume)on 10-11-2021 Albumin [Mass/Vol] 1.8 g/dL 3.2-5.0 [facility] Work Phone: Serum or plasma albumin/glob ulin mass ratioon 10-11-2021 Albumin/Globulin [Mass ratio] 0.4 {ratio} 0.9-2.4 [facility] Work Phone: [phone] Serum or plasma calcium jj urement (mass/volume)on 10-11-2021 Calcium [Mass/Vol] 8.9 mg/dL 8.5-10.1 [facility] Work Phone: [phone] Serum or plasma creatinine m easurement (mass/volume)on 10-11-2021 Creatinine [Mass/Vol] 0.48 mg/dL 0.55-1.[address] [facility] Work Phone: Comment on above: The validity of the calculated GFR & GFRAA in patients over 70 years has not been determined. Clinical correlation is essential. Serum or plasma urea nitroge n measurement (mass/volume)on 10-11-2021 Urea nitrogen [Mass/Vol] 31 mg/dL 7-18 [facility] Work Phone: Thin prep Papanicolaou smear with manual screeningon 10-11-2021 Thin prep Papanicolaou smear with manual screening 55 U/L 15-37 [facility] Work Phone: Thin prep Papanicolaou smear with manual screening 8 5-15 [facility] Work Phone: [phone] Absolute lymphocyte counton 09-28-2021 Lymphocytes Auto (Unsp spec) [#/Vol] 1.32 10*3/uL 0.83-4.51 [facility] Work Phone: [phone] Basophil percentageon 2021 Basophils/100 WBC (Bld) 0.5 % 0-1 [facility] Work Phone: Chloride [Moles/Vol] 106 mmol/L 98-107 [facility] Work Phone: [phone] Eosinophils/100 WBC (Bld) 0.1 % 0-5 [facility] Work Phone: [phone] Glucose [Mass/Vol] 115 mg/dL 74-106 [facility] Work Phone: [phone] Comment on above: Fasting Glucose resu lt from 100 to 125 mg/dL suggests IMPAIRED HOMEOSTASIS per A.D.A. criteria. Neutrophils (Bld) [#/Vol] 11.5 10*3/uL 2.0-7.7 [facility] Work Phone: [phone] Neutrophils/100 WBC (Bld) 77.5 % 47-70 [facility] Work Phone: [phone] Potassium [Moles/Vol] 4.0 mmol/L 3.5-5.1 [facility] Work Phone: [phone] Sodium [Moles/Vol] 138 mmol/L 136-145 [facility] Work Phone: [phone] WBC (Bld) [#/Vol] 14.8 10*3/uL 4.4-11.0 [facility] Work Phone: [phone] Blood erythrocytes count (nu mber/volume)on 09-28-2021 RBC (Bld) [#/Vol] 5.25 10*6/uL 4.2-5.4 [facility] Work Phone: [phone] Blood hemoglobin measurement (mass/volume)on 09-28-2021 Hemoglobin (Bld) [Mass/Vol] 14.7 g/dL 12.0-15.0 [facility] Work Phone: [phone] Blood lymphocytes/100 leukoc yteson 09-28-2021 Lymphocytes/100 WBC (Bld) 8.9 % 19-41 [facility] Work Phone: [phone] Blood monocytes/100 leukocyt eson 09-28-2021 Monocytes/100 WBC (Bld) 8.6 % 0-10 [facility] Work Phone: [phone] Blood platelet mean volumeon 09-28-2021 Platelet mean volume (Bld) [Entitic vol] 9.1 fL 6.2-12.0 [facility] Work Phone: [phone] Determination of erythrocyte mean corpuscular volume (MCV)on 09-28-2021 MCV (RBC) [Entitic vol] 88.8 fL 81-99 [facility] Work Phone: [phone] Glucose Glucometer (BldC) [M ass/Vol]on 09-28-2021 Glucose [Mass/Vol] 188 mg/dL 74-106 [facility] Work Phone: [phone] Comment on above: MANAGEMENT OF PATIEN T CARE PER NURSING PROTOCOL Hematocrit Auto (Bld) [Volum e fraction]on 09-28-2021 Hematocrit (Bld) [Volume fraction] 46.6 % 37-47 [facility] Work Phone: [phone] Laboratory - Chemistry and C hemistry - challengeon 09-28-2021 CO2 [Moles/Vol] 24.0 mmol/L 21.0-32.0 [facility] Work Phone: [phone] Urea nitrogen/Creatinine [Mass ratio] 41.0 mg/mg 10-20 [facility] Work Phone: [phone] Laboratory - Hematology and Cell countson 09-28-2021 Erythrocyte distribution width (RBC) [Entitic vol] 43.8 fL 35.1-43.9 [facility] Work Phone: [phone] Erythrocyte distribution width (RBC) [Ratio] 13.5 % 11.6-14.6 [facility] Work Phone: [phone] Immature granulocytes/100 WBC (Bld) 4.400 % 0.0-0.9 [facility] Work Phone: [phone] Comment on above: IG% - Immature Granu locytes (promyelocytes, myelocytes and metamyelocytes) > 1% indicates that a LEFT SHIFT is Present. MCH (RBC) [Entitic mass] 28.0 pg 27.0-32.0 [facility] Work Phone: [phone] Nucleated RBC/100 WBC (Bld) [Ratio] 0 % 0-5 [facility] Work Phone: [phone] MCHC Auto (RBC) [Mass/Vol]on 09-28-2021 MCHC (RBC) [Mass/Vol] 31.5 g/dL 32-[address] [facility] Work Phone: [phone] Panel Informationon 09-28 Estimated Creatinine Clearance Calc 92.08 ml/min [facility] Work Phone: Estimated GFR (MDRD) Amer 147 mL/min >60 [facility] Work Phone: Comment on above: GFR Calc Estimated GFR (MDRD) Non-Af Amer 122 mL/min >60 [facility] Work Phone: Comment on above: Non- GFR Calc Platelets bldon 09-28-2021 Platelets (Bld) [#/Vol] 490 10*3/uL 150-450 [facility] Work Phone: Serum or plasma calcium jj urement (mass/volume)on 09-28-2021 Calcium [Mass/Vol] 9.2 mg/dL 8.5-10.1 [facility] Work Phone: Serum or plasma creatinine m easurement (mass/volume)on 09-28-2021 Creatinine [Mass/Vol] 0.54 mg/dL 0.55-1.[address] [facility] Work Phone: Comment on above: The validity of the calculated GFR & GFRAA in patients over 70 years has not been determined. Clinical correlation is essential. Serum or plasma urea nitroge n measurement (mass/volume)on 09-28-2021 Urea nitrogen [Mass/Vol] 22 mg/dL 7-18 [facility] Work Phone: Thin prep Papanicolaou smear with manual screeningon 09-28-2021 Thin prep Papanicolaou smear with manual screening 8 5-15 [facility] General Work Phone: Blood lymphocytes/100 leukoc yteson 09-26-2021 Lymphocytes/100 WBC (Bld) 7 % 19-41 [facility] Work Phone: [phone] Blood monocytes/100 leukocyt eson 09-26-2021 Monocytes/100 WBC (Bld) 15 % 0-10 [facility] Work Phone: [phone] Blood platelet adequacy dete ction by light microscopyon 09-26-2021 Platelets LM Ql (Bld) [employer]D INC ADEQ [facility] Work Phone: [phone] Blood segmented neutrophils/ 100 leukocyteson 09-26-2021 Segmented neutrophils/100 WBC (Bld) 77 % 47-70 [facility] Work Phone: Laboratory - Hematology and Cell countson 09-26-2021 Myelocytes/100 WBC (Bld) 1 % 0-0 [facility] Work Phone: RBC morphologyon 09-26-2021 RBC morphology finding Nom (Bld) NORM C+C NORMAL NORM C&C [facility] Work Phone: Review by pathologiston 09-04 Pathologist review Shaan (Unsp spec) [Interp] Reviewed [facility] Work Phone: Comment on above: Previous reported re sult: Kori isaacs Edited by: JACQUES on 09/27/21:1017Neutrophilic leukocytosis with left shift. PolycythemiaThrombocytosis.Clinical correlation necessary.Je Browne M.D. 09/27/21 AMENDED REPORT 09/27/21 1017 PATH REV previously reported as: Kori isaacs Total cell counton Cells counted Molgen (Bld/Tiss) [#] 100 MANUAL DIFF [facility] Work Phone: Blood band neutrophil count as percentage of total leukocyteson 09-25-2021 Band form neutrophils/100 WBC (Bld) 1 % 0-5 [facility] Work Phone: Blood metamyelocytes/100 papa kocyteson 09-25-2021 Metamyelocytes/100 WBC (Bld) 3 % 0-1 [facility] Work Phone: Blood promyelocytes/100 leuk ocyteson 09-25-2021 Promyelocytes/100 WBC (Bld) 1 % 0-0 [facility] Work Phone: Basophil percentageon 2021 Basophil percentage 1 % 0-5 [facility] Work Phone: No Panel Informationon 09-22 D-Dimer Quantitative (PE/DVT) 0.56 FEU/ug/m 0.27-0.49 [facility] Work Phone: Comment on above: D-Dimer ELEVATED (>0 .49): Additional studies and clinicalassessments are indicated to conclude diagnosis of:Deep Vein Thrombosis (DVT) or Pulmonary Embolism (PE)CRITICAL VALUE VERIFIED. CALLED TO YVONNE PONCE ([facility])09/22/21 1110 Aren Castaneda.RESULTS READ BACK BY SAME. Blood manual differential co mment interpretation (narrative result)on 09-21-2021 Manual differential comment Shaan (Bld) [Interp] SCANNED [facility] Work Phone: [phone] Basophil percentageon 2021 Bilirubin [Mass/Vol] 0.30 mg/dL 0.20-1.00 [facility] Work Phone: [phone] Comment on above: For patients on eltr ombopag therapy, use of Dimension [place] TBIL is not recommended. Protein [Mass/Vol] 5.7 g/dL 6.4-8.2 [facility] Work Phone: [phone] Laboratory - Chemistry and C hemistry - challengeon 09-20-2021 ALP [Catalytic activity/Vol] 52 U/L 45-117 [facility] Work Phone: [phone] ALT [Catalytic activity/Vol] 28 U/L 13-56 [facility] Work Phone: [phone] Globulin (S) [Mass/Vol] 3.2 g/dL 2.2-4.2 [facility] Work Phone: [phone] Serum or plasma albumin jj urement (mass/volume)on 09-20-2021 Albumin [Mass/Vol] 2.5 g/dL 3.2-5.0 [facility] Work Phone: [phone] Serum or plasma albumin/glob ulin mass ratioon 09-20-2021 Albumin/Globulin [Mass ratio] 0.8 {ratio} 0.9-2.4 [facility] Work Phone: [phone] Thin prep Papanicolaou smear with manual screeningon 09-20-2021 Thin prep Papanicolaou smear with manual screening 24 U/L 15-37 [facility] Work Phone: [phone] Basophil percentageon 2021 Basophil percentage 2.5 mg/dL 2.5-4.9 [facility] Work Phone: Laboratory - Chemistry and C hemistry - challengeon 09-19-2021 Magnesium [Mass/Vol] 2.1 mg/dL 1.6-2.6 [facility] Work Phone: No Panel Informationon 09-19 Thyroid Stimulating Hormone (TSH) 0.74 uIU/mL 0.358-3.74 [facility] Work Phone: Bronchoalveolar lavage cultu re with Gram stainon 09-18-2021 Respiratory Culture Negative [facility] Work Phone: Gram stain for investigation of transfusion reactionon 09-18-2021 Microscopic observation Gram stain Nom (Unsp spec) [facility] Work Phone: No Panel Informationon 09-18 Streptococcus pneumoniae Antigen (M [facility] Work Phone: Serum or plasma C reactive p rotein measurement (mass/volume)on 09-18-2021 CRP [Mass/Vol] 172.00 mg/L 0.0-3.0 [facility] Work Phone: Comment on above: C-Reactive Protein ( CRP) provides useful information for thediagnosis, therapy and monitoring of inflammatory processesand associated diseases. For the evaluation of Relative Riskfor Cardiovascular Disease, a High Sensitivity CRP (HSCRP)should be ordered. Vancomycin troughon 09-19-19 Vancomycin trough [Mass/Vol] 14.1 ug/mL 5.0-15.0 [facility] Work Phone: Comment on above: VANCOMYCIN STANDARED DRUG THERAPY TROUGH LEVEL: 5.0 - 15.0 mg/L VANCOMYCIN HIGH INTENSITY THERAPY TROUGH LEVEL: 15.0 - 20.0 mg/L High Intensity therapy recommended for serious lifethreatening infections include:- Wwuvvrcado-Aimvwvbvtxxz-Wfgobuvcj (Ventilator/Healtcare Associated)-Sepsis PLEASE CONTACT PHARMACY SERVICES (#[id number]) FOR INTERPRETATIONOF RESULTS. Assessment of wrist artery p atency prior to arterial punctureon 09-17-2021 Arterial patency Wrist artery --pre arterial puncture Positive [facility] Work Phone: Base excesson 09-17-2021 Base excess Calc (BldV) [Moles/Vol] -2 mmol/L -2-2 [facility] Work Phone: Basophil percentageon 2021 Basophil percentage 21.8 mmol/L 22-26 [facility] Work Phone: Basophils/100 WBC (Bld) 88 % 95-99 [facility] Work Phone: CO2 (BldA) [Partial pressure ]on 09-17-2021 CO2 (Bld) [Partial pressure] 31.7 mm[Hg] 35-45 [facility] Work Phone: No Panel Informationon 09-17 Bedside Blood Gas PEEP 8 [facility] Work Phone: Blood Gas Oxygen Percent 100 [facility] Work Phone: Blood Gas Sample Site L Radial [facility] Work Phone: Blood Gas Specimen Type ART W [facility] Work Phone: Blood Gas Total CO2 23 mmol/L [facility] Work Phone: Oxygen Delivery Device BiPAP [facility] Work Phone: Oxygen (BldA) [Partial press ure]on 09-17-2021 Oxygen (Bld) [Partial pressure] 51 mmHG 75-100 [facility] Work Phone: pH measurementon 09-17-2021 pH (Unsp spec) 7.45 [pH] 7.35-7.45 [facility] Work Phone: Absolute lymphocyte counton 09-16-2021 Lymphocytes Auto (Unsp spec) [#/Vol] 0.70 10*3/uL 0.83-4.51 [facility] Work Phone: [phone] Basophil percentageon 2021 Lactate [Moles/Vol] 1.8 mmol/L 0.4-2.0 [facility] Work Phone: Basophil percentage 0 SEEN /hpf 0-5 [facility] Work Phone: Lactate [Moles/Vol] 2.2 mmol/L 0.4-2.0 [facility] Work Phone: Comment on above: Critical Result(s) C alled at: 14:10:01 09/16/2021 by: Miriam Marks to Rudi. Results read back by same. Bilirubin [Mass/Vol] 0.20 mg/dL 0.20-1.00 [facility] Work Phone: Comment on above: For patients on eltr ombopag therapy, use of Dimension [place] TBIL is not recommended. Chloride [Moles/Vol] 109 mmol/L 98-107 [facility] Work Phone: Glucose [Mass/Vol] 141 mg/dL 74-106 [facility] Work Phone: [phone] Comment on above: Fasting Glucose resu lt greater than or equal to 126 mg/dL suggests DIABETES MELLITUS per A.D.A. criteria. Potassium [Moles/Vol] 3.7 mmol/L 3.5-5.[address] [facility] Work Phone: Protein [Mass/Vol] 6.9 g/dL 6.4-8.2 [facility] Work Phone: Sodium [Moles/Vol] 141 mmol/L 136-145 [facility] Work Phone: Basophils/100 WBC (Bld) 0.5 % 0-1 [facility] Work Phone: Eosinophils/100 WBC (Bld) 0.1 % 0-5 [facility] Work Phone: Neutrophils (Bld) [#/Vol] 6.7 10*3/uL 2.0-7.7 [facility] Work Phone: Neutrophils/100 WBC (Bld) 75.2 % 47-70 [facility] Work Phone: WBC (Bld) [#/Vol] 8.8 10*3/uL 4.4-11.0 [facility] Work Phone: Bilirubin Test strip Ql (U)o n 09-16-2021 Bilirubin Ql (U) Negative Negative [facility] Work Phone: Blood erythrocytes count (nu mber/volume)on 09-16-2021 RBC (Bld) [#/Vol] 4.98 10*6/uL 4.2-5.4 [facility] Work Phone: Blood hemoglobin measurement (mass/volume)on 09-16-2021 Hemoglobin (Bld) [Mass/Vol] 14.2 g/dL 12.0-15.0 [facility] Work Phone: Blood lymphocytes/100 leukoc yteson 09-16-2021 Lymphocytes/100 WBC (Bld) 7.9 % 19-41 [facility] Work Phone: Blood monocytes/100 leukocyt eson 09-16-2021 Monocytes/100 WBC (Bld) 15.6 % 0-10 [facility] Work Phone: Blood platelet mean volumeon 09-16-2021 Platelet mean volume (Bld) [Entitic vol] 8.9 fL 6.2-12.0 [facility] Work Phone: Determination of erythrocyte mean corpuscular volume (MCV)on 09-16-2021 MCV (RBC) [Entitic vol] 90.8 fL 81-99 [facility] Work Phone: Hematocrit Auto (Bld) [Volum e fraction]on 09-16-2021 Hematocrit (Bld) [Volume fraction] 45.2 % 37-47 [facility] Work Phone: INR in Blood by Coagulation assayon 09-16-2021 INR Coag (Bld) [Relative time] 1.0 {INR} [facility] Work Phone: Ketones Test strip Ql (U)on 09-16-2021 Ketones Ql (U) 5 mg/dl Negative [facility] Work Phone: Laboratory - Chemistry and C hemistry - challengeon 09-16-2021 ALP [Catalytic activity/Vol] 88 U/L 45-117 [facility] Work Phone: ALT [Catalytic activity/Vol] 28 U/L 13-56 [facility] Work Phone: [phone] CO2 [Moles/Vol] 27.0 mmol/L 21.0-32.0 [facility] Work Phone: [phone] Globulin (S) [Mass/Vol] 3.3 g/dL 2.2-4.2 [facility] Work Phone: [phone] Urea nitrogen/Creatinine [Mass ratio] 38.8 mg/mg 10-20 [facility] Work Phone: [phone] Laboratory - Coagulationon 0 09-16-2021 aPTT Coag (Bld) [Time] 30.0 s 24.1-36.2 [facility] Work Phone: [phone] PT Coag (PPP) [Time] 13.1 s 11.7-14.9 [facility] Work Phone: [phone] Laboratory - Hematology and Cell countson 09-16-2021 Erythrocyte distribution width (RBC) [Entitic vol] 44.8 fL 35.1-43.9 [facility] Work Phone: Erythrocyte distribution width (RBC) [Ratio] 13.4 % 11.6-14.6 [facility] Work Phone: [phone] Immature granulocytes/100 WBC (Bld) 0.700 % 0.0-0.9 [facility] Work Phone: [phone] Comment on above: IG% - Immature Granu locytes (promyelocytes, myelocytes and metamyelocytes) > 1% indicates that a LEFT SHIFT is Present. MCH (RBC) [Entitic mass] 28.5 pg 27.0-32.0 [facility] Work Phone: Nucleated RBC/100 WBC (Bld) [Ratio] 0 % 0-5 [facility] Work Phone: [phone] Laboratory - Microbiology an d Antimicrobial susceptibilityon 09-16-2021 Bacteria identified Cx Nom (Bld) No growth in 5 days. [facility] Work Phone: MCHC Auto (RBC) [Mass/Vol]on 09-16-2021 MCHC (RBC) [Mass/Vol] 31.4 g/dL 32-[address] [facility] Work Phone: Mucus LM Ql (Urine sed)on Mucus Ql (Urine sed) 0 SEEN /hpf [facility] Work Phone: [phone] Nitrite Test strip Ql (U)on 09-16-2021 Nitrite Ql (U) Positive Negative [facility] Work Phone: No Panel Informationon 09-16 Estimated Creatinine Clearance Calc 66.30 ml/min [facility] Work Phone: Estimated GFR (MDRD) Amer 101 mL/min >60 [facility] Work Phone: Comment on above: GFR Calc Estimated GFR (MDRD) Non-Af Amer 83 mL/min >60 [facility] Work Phone: Comment on above: Non- GFR Calc Platelets bldon 09-16-2021 Platelets (Bld) [#/Vol] 373 10*3/uL 150-450 [facility] Work Phone: Protein Test strip Ql (U)on 09-16-2021 Protein Ql (U) 15 mg/dl Negative [facility] Work Phone: [phone] Serum or plasma albumin jj urement (mass/volume)on 09-16-2021 Albumin [Mass/Vol] 3.6 g/dL 3.2-5.0 [facility] Work Phone: [phone] Serum or plasma albumin/glob ulin mass ratioon 09-16-2021 Albumin/Globulin [Mass ratio] 1.1 {ratio} 0.9-2.4 [facility] Work Phone: [phone] Serum or plasma calcium jj urement (mass/volume)on 09-16-2021 Calcium [Mass/Vol] 8.8 mg/dL 8.5-10.1 [facility] Work Phone: Serum or plasma creatinine m easurement (mass/volume)on 09-16-2021 Creatinine [Mass/Vol] 0.75 mg/dL 0.55-1.[address] [facility] Work Phone: Comment on above: The validity of the calculated GFR & GFRAA in patients over 70 years has not been determined. Clinical correlation is essential. Serum or plasma urea nitroge n measurement (mass/volume)on 09-16-2021 Urea nitrogen [Mass/Vol] 29 mg/dL 7-18 [facility] Work Phone: Squamous epithelial cells de tection in urine sediment by light microscopyon 09-16-2021 Epithelial cells.squamous LM Ql (Urine sed) 0 SEEN /hpf 5-10 [facility] Work Phone: Thin prep Papanicolaou smear with manual screeningon 09-16-2021 Thin prep Papanicolaou smear with manual screening 16 U/L 15-37 [facility] Work Phone: Thin prep Papanicolaou smear with manual screening 5 5-15 [facility] Work Phone: Urine blood detectionon 09-03 RBC Ql (U) 10 /ul Negative [facility] Work Phone: RBC Ql (U) 0 SEEN /hpf 0-5 [facility] Work Phone: Urine clarityon 09-16-2021 Clarity (U) Cloudy Clear [facility] Work Phone: Urine color determinationon 09-16-2021 Color (U) Yellow Yellow [facility] Work Phone: Urine glucose detectionon Glucose Ql (U) Normal mg/dl Normal [facility] Work Phone: [phone] Urine leukocyte esterase det ection by dipstickon 09-16-2021 Leukocyte esterase Test strip Ql (U) Negative Negative [facility] Work Phone: Urine pHon 09-16-2021 pH (U) 5.0 [pH] 5.0 - 8.0 [facility] Work Phone: Urine sediment bacteria coun t by microscopy (number/high power field)on 09-16-2021 Bacteria LM.HPF (Urine sed) [#/Area] 2 /[HPF] None Seen [facility] Work Phone: Urine specific gravity measu rementon 09-16-2021 Specific gravity (U) [Rel density] 1.025 1.002-1.030 [facility] Work Phone: Urobilinogen Auto test strip Ql (U)on 09-16-2021 Urobilinogen Ql (U) Normal mg/dl Normal [facility] Work Phone: Hepatic function 2000 panelo n 04-09-2021 Albumin [Mass/Vol] 4.4 g/dL 3.2 - 5.2 g/dL [facility] ALP [Catalytic activity/Vol] 100 U/L 40 - 150 U/L [facility] ALT [Catalytic activity/Vol] 22 U/L 0 - 40 U/L [facility] AST [Catalytic activity/Vol] 17 U/L 0 - 45 U/L [facility] Bilirubin [Mass/Vol] 0.2 mg/dL 0.0 - 1 .3 mg/dL [facility] Bilirubin.conjugated [Mass/Vol] mg/dL 0.0 - 0.4 mg/dL [facility] Interpretation and review of laboratory results Normal [facility] Protein [Mass/Vol] 6.5 g/dL 6.0 - 8.0 g/dL [facility] IGG, IGA, IGM IMMUNOGLOBULIN SOrdered By: Huong Jacobs on 04-09-2021 Interpretation and review of laboratory results Abnormal [facility] Laboratory - Chemistry and C hemistry - challengeon 04-09-2021 25-hydroxyvitamin D [Mass/Vol] 64 ng/mL 30 - 100 ng/mL [facility] Comment on above: Vitamin D status: Deficiency: <10 ng/mL Insufficiency: 10-30 ng/mL Sufficiency: 30-100 ng/mL Toxicity: >100 ng/mL Laboratory - Chemistry and C hemistry - challengeOrdered By: Huong Milan on 04-09-2021 IgA [Mass/Vol] 151 mg/dL 84 - 381 mg/dL [facility] IgG [Mass/Vol] 523 mg/dL Low 541 - 1694 mg/dL [facility] IgM [Mass/Vol] 60 mg/dL 43 - 238 mg/dL [facility] Laboratory - Hematology and Cell countson 04-09-2021 Basophils (Bld) [#/Vol] 0.07 10*3/uL [facility] Basophils/100 WBC (Bld) 0.6 % [facility] Eosinophils (Bld) [#/Vol] 0.04 10*3/uL [facility] Eosinophils/100 WBC (Bld) 0.4 % [facility] Erythrocyte distribution width (RBC) [Entitic vol] 13.8 % 11.6 - 14.8 % [facility] Hematocrit (Bld) [Volume fraction] 50.0 % High 36.0 - 46.0 % [facility] Hemoglobin (Bld) [Mass/Vol] 15.4 g/dL 12.0 - 16.0 g/dL [facility] Immature granulocytes (Bld) [#/Vol] 0.12 10*3/uL [facility] Immature granulocytes/100 WBC (Bld) 1.10 % [facility] Comment on above: The IG parameter is the percentage of metamyelocytes, myelocytes and promyelocytes. An immature granulocyte count (IG) of 1% or more suggests the possibility of infection, an IG count of 3% is very likely related to an infection. Lymphocytes (Bld) [#/Vol] 0.94 10*3/uL [facility] Lymphocytes/100 WBC (Bld) 8.4 % [facility] MCH (RBC) [Entitic mass] 28.1 pg 26. 0 - 34.0 pg [facility] MCHC (RBC) [Mass/Vol] 30.8 g/dL Low 31.0 - 37.0 g/dL [facility] MCV (RBC) [Entitic vol] 91.2 fL 80.0 - 100.0 fL [facility] Monocytes (Bld) [#/Vol] 0.93 10*3/uL High [facility] Monocytes/100 WBC (Bld) 8.3 % [facility] Neutrophils (Bld) [#/Vol] 9.12 10*3/uL High [facility] Neutrophils/100 WBC (Bld) 81.2 % [facility] Nucleated RBC (Bld) [#/Vol] 0.00 10*3/uL [facility] Nucleated RBC/100 WBC (Bld) [Ratio] 0.0 % [facility] Platelet mean volume (Bld) [Entitic vol] 9.4 fL 9.4 - 12.4 fL [facility] Platelets (Bld) [#/Vol] 417 10*3/uL High [facility] RBC (Bld) [#/Vol] 5.48 10*6/uL High [facility]alth WBC (Bld) [#/Vol] 11.22 10*3/uL [facility] No Panel Informationon 04-09 Interpretation and review of laboratory results Abnormal [facility] VITAMIN D, TOTAL, 25-OHon Interpretation and review of laboratory results Normal [facility] Assay performed usin [employer] CLIA methodology. [facility] MR BRAIN WITHOUT CONTRASTon 10-18-2019 No acute intracrania l abnormality. Underlying atrophy and black holes. Stable burden of T2/FLAIR signal abnormalities compatible with demyelination. [employer] Workstation ID: [id number] [facility] EXAMINATION: MR BRAI N WITHOUT CONTRAST HISTORY: [...] compatible with the patient's diagnosis of demyelination. [facility] Interface, Rad In [employer] Speech[employer] - 10/18/2019 [...] compatible with demyelination. [employer] Workstation ID: [id number] [facility] POC Creatinineon 09-28-2018 Creatinine mass conc 0.6 mg/dL 0.4 - 1 .1 mg/dL [facility] Interpretation and review of laboratory results Normal [facility] Comprehensive Metabolic Pane dwight 01-19-2018 Albumin mass conc 4.7 g/dL Invalid Interpretation Code 3.2 - 5.2 g/dL [facility] ALP enzyme act/vol 76 U/L Invalid Interpretation Code 40 - 150 U/L [facility] ALT enzyme act/vol 14 U/L Invalid Interpretation Code 0 - 40 U/L [facility] Anion gap 3 molar conc 17 mmol/L Invalid Interpretation Code 10 - 20 mmol/L [facility] AST enzyme act/vol 15 U/L Invalid Interpretation Code 0 - 45 U/L [facility] Bilirubin mass conc 0.3 mg/dL Invalid Interpretation Code 0 - 1.3 mg/dL [facility] Calcium mass conc 10.2 mg/dL Invalid Interpretation Code 8.4 - 10.2 mg/dL [facility] Chloride molar conc 107 mmol/L Invalid Interpretation Code 98 - 108 mmol/L [facility] Creatinine mass conc 0.47 mg/dL Invalid Interpretation Code 0.4 - 1.1 mg/dL [facility] GFR/1.73 sq M predicted among non-blacks MDRD vol rate/area (S/P/Bld) The eGFR should be used for monitoring renal function only and not for medication dosing. Invalid Interpretation Code [facility] GFR/1.73 sq M.predicted CKD-EPI vol rate/area (S/P/Bld) 108 Invalid Interpretation Code >=60 mL/min/1.73 m2 [facility] Glucose mass conc 96 mg/dL Invalid Interpretation Code 65 - 99 mg/dL [facility] HCO3 molar conc 26 mmol/L Invalid Interpretation Code 21 - 32 mmol/L [facility] Interpretation and review of laboratory results Abnormal Invalid Interpretation Code [facility] Potassium molar conc 4.2 mmol/L Invalid Interpretation Code 3.5 - 5.1 mmol/L [facility] Protein mass conc 6.9 g/dL Invalid Interpretation Code 6 - 8 g/dL [facility] Sodium molar conc 146 mmol/L High 135 - 145 mmol/L [facility] Urea nitrogen mass conc 33 mg/dL High 8 - 25 mg/dL [facility] Urea nitrogen/Creatinine mass ratio 70.2 mg/mg High [facility] Vitamin D, Total, 25-OHon 25-Hydroxyvitamin D2+25-Hydroxyvitamin D3 mass conc 72 ng/mL Invalid Interpretation Code 30 - 100 ng/mL [facility] Comment on above: Vitamin D status: De ficiency: <10 ng/mL Insufficiency: 10-30 ng/mL Sufficiency: 30-100 ng/mL Toxicity: >100 ng/mL Interpretation and review of laboratory results Normal Invalid Interpretation Code [facility] Assay performed Rk[employer]inin [employer] CLIA methodology. Invalid Interpretation Code [facility] CBC and Differentialon 08-25 Creatinine The following orders were created for panel order CBC and Differential. Procedure Abnormality Status --------- ------ CBC Auto Differential[[id number]] Abnormal Final result Please view results for these tests on the individual orders. Invalid Interpretation Code [facility] Comprehensive Metabolic Pane dwight 08-25-2017 Alanine aminotransferase (ALT) 18 U/L Invalid Interpretation Code 0 - 40 U/L [facility] Albumin 4.6 g/dL Invalid Interpretation Code 3.2 - 5.2 g/dL [facility] Alkaline phosphatase (ALP) 82 U/L Invalid Interpretation Code 40 - 150 U/L [facility] Anion gap 19 mmol/L Invalid Interpretation Code 10 - 20 mmol/L [facility] Aspartate aminotransferase (AST) 15 U/L Invalid Interpretation Code 0 - 45 U/L [facility] Bicarbonate (HCO3) 26 mmol/L Invalid Interpretation Code 21 - 32 mmol/L [facility] Bilirubin (total) mg/dL Invalid Interpretation Code 0 - 1.3 mg/dL [facility] BUN/Creatinine Ratio 48.1 mg/mg High 10.0 - 20.0 [facility] Calcium 10.3 mg/dL High 8.4 - 10.2 mg/dL [facility] Chloride 103 mmol/L Invalid Interpretation Code 98 - 108 mmol/L [facility] Creatinine 0.54 mg/dL Invalid Interpretation Code 0.4 - 1.1 mg/dL [facility] eGFR (non-black) The eGFR should be used for monitoring renal function only and not for medication dosing. Invalid Interpretation Code [facility] eGFR (non-black) 104 mL/min/{1.73_m2} Invalid Interpretation Code >=60 [facility] Glucose 86 mg/dL Invalid Interpretation Code 65 - 99 mg/dL [facility] Interpretation and review of laboratory results Abnormal Invalid Interpretation Code [facility] Potassium 4.3 mmol/L Invalid Interpretation Code 3.5 - 5.1 mmol/L [facility] Protein 6.9 g/dL Invalid Interpretation Code 6 - 8 g/dL [facility] Sodium 144 mmol/L Invalid Interpretation Code 135 - 145 mmol/L [facility] Urea nitrogen 26 mg/dL High 8 - 25 mg/dL [facility] Vitamin D, Total, 25-OHon Vit D, 25-Hydroxy 109 ng/mL High 30 - 100 ng/mL [facility] Vitamin D, Total, 25-OH Assay performed using [employer] CLIA methodology. Invalid Interpretation Code [facility] CBC and Differentialon 05-25 Creatinine The following orders were created for panel order CBC and Differential. Procedure Abnormality Status --------- ------ CBC Auto Differential[[id number]] Abnormal Final result Please view results for these tests on the individual orders. Invalid Interpretation Code [email or web address] Work Phone: Bronchoalveolar lavage cultu re with Gram stain Respiratory Culture Negative [facility] Work Phone: Culture, urine Bacteria identified Cx Nom (U) Mixed Gram Pos & Gram Neg Org [facility] Work Phone: Bacteria identified Cx Nom (U) Yeast [facility] Work Phone: [phone] Bacteria identified Cx Nom (U) Escherichia coli [facility] Work Phone: Gram stain for investigation of transfusion reaction Microscopic observation Gram stain Nom (Unsp spec) [facility] Work Phone: Laboratory - Microbiology an d Antimicrobial susceptibility Bacteria identified Cx Nom (Bld) No growth in 5 days. [facility] Work Phone: No Panel Information Streptococcus pneumoniae Antigen (M [facility] Work Phone: Vital Signs Date Time Vital Sign Value Performing Clinician Facility 07-05-2022 11:24-0500 Body height 162.[address] Joan Hughes Work Phone: [facility] 09-28-2021 12:05-0400 SaO2% (BldA) [Mass fraction] 98 % Dr. Joan Hughes Work Phone: [facility] Work Phone: 09-28-2021 09:00-0400 Body temperature 98 [degF] Dr. Joan Hughes Work Phone: [facility] Work Phone: 09-28-2021 09:00-0400 Diastolic blood pressure 79 mm[Hg] Dr. Joan Hughes Work Phone: [facility] Work Phone: 09-28-2021 09:00-0400 Heart rate 100 /min Dr. Jaon Hughes Work Phone: [facility] Work Phone: 09-28-2021 09:00-0400 Respiratory rate 14 /min Dr. Joan Hughes Work Phone: [facility] Work Phone: 09-28-2021 09:00-0400 Systolic blood pressure 117 mm[Hg] Dr. Joan Hughes Work Phone: [facility] Work Phone: 09-28-2021 05:32-0400 Body weight 66.[address] Joan Hughes Work Phone: [facility] Work Phone: 09-25-2021 09:36-0400 Inhaled oxygen flow rate 2 L/min Dr. Joan Hughes Work Phone: [facility] Work Phone: 09-24-2021 11:58-0400 Body height 162.[address] Joan Hughes Work Phone: [facility] Work Phone: 09-23-2021 16:35-0400 Inhaled oxygen concentration 41 % Dr. Joan Hughes Work Phone: [facility] Work Phone: 09-16-2021 14:53-0400 Body mass index (BMI) [Ratio] 25.7 kg/m2 Dr. Joan Hughes Work Phone: [facility] Work Phone: 09-16-2021 14:11-0400 Body temperature 99.3 [degF] [facility] Work Phone: 09-16-2021 14:11-0400 Diastolic blood pressure 56 mm[Hg] [facility] Work Phone: 09-16-2021 14:11-0400 Heart rate 114 /min [facility] Work Phone: 09-16-2021 14:11-0400 Respiratory rate 16 /min [facility] Work Phone: 09-16-2021 14:11-0400 SaO2% (BldA) [Mass fraction] 95 % [facility] Work Phone: 09-16-2021 14:11-0400 Systolic blood pressure 132 mm[Hg] [facility] Work Phone: 09-16-2021 13:00-0400 Body height 162.56 cm [facility] Work Phone: 09-16-2021 13:00-0400 Body mass index (BMI) [Ratio] 26.8 kg/m2 [facility] Work Phone: 09-16-2021 13:00-0400 Body weight 70.8 kg [facility] Work Phone: 04-09-2021 13:25-0400 Body temperature 97.9 [degF] Chair 7 [facility] 04-09-2021 13:25-0400 Diastolic blood pressure 80 mm[Hg] Chair 7 [facility] 04-09-2021 13:25-0400 Heart rate 123 /min Chair 7 [facility] 04-09-2021 13:25-0400 SaO2% (BldA) [Mass fraction] 97 % Chair 7 [facility] 04-09-2021 13:25-0400 Systolic blood pressure 133 mm[Hg] Chair 7 [facility] 04-09-2021 11:06-0400 Respiratory rate 16 /min Chair 7 [facility] 04-09-2021 07:57-0400 Body height 162.6 cm Willard Epperson MD Work Phone: [facility] 04-09-2021 07:57-0400 Body mass index (BMI) [Ratio] 25.06 kg/m2 Willard Epperson MD Work Phone: [facility] 04-09-2021 07:57-0400 Body weight 66.22 kg Willard Epperson MD Work Phone: [facility] 04-09-2021 07:57-0400 Diastolic blood pressure 65 mm[Hg] Willard Epperson MD Work Phone: [facility] 04-09-2021 07:57-0400 Heart rate 111 /min Willard Epperson MD Work Phone: [facility] 04-09-2021 07:57-0400 Systolic blood pressure 123 mm[Hg] Willard Epperson MD Work Phone: [facility] 10-16-2020 12:50-0400 Body temperature 98.29 [degF] Chair 2 [facility] 10-16-2020 12:50-0400 Diastolic blood pressure 63 mm[Hg] Chair 2 [facility] 10-16-2020 12:50-0400 Heart rate 130 /min Chair 2 [facility] 10-16-2020 12:50-0400 SaO2% (BldA) [Mass fraction] 96 % Chair 2 [facility] 10-16-2020 12:50-0400 Systolic blood pressure 128 mm[Hg] Chair 2 [facility] 10-16-2020 11:34-0400 Respiratory rate 16 /min Chair 2 [facility] 04-17-2020 14:51-0500 BP Diastolic 70 mm[Hg] Chair 2 [facility] 04-17-2020 14:51-0500 BP Systolic 136 mm[Hg] Chair 2 [facility] 04-17-2020 14:51-0500 Pulse (Heart Rate) 126 /min Chair 2 [facility] 04-17-2020 14:51-0500 Pulse Oximetry 97 % Chair 2 [facility] 04-17-2020 14:51-0500 Respiratory Rate 16 /min Chair 2 [facility] 04-17-2020 14:48-0500 Body Temperature 98.4 [degF] Chair 2 [facility] 04-17-2020 10:41-0500 BMI (Body Mass Index) 22.31 kg/m2 Willard Zhou [facility] 04-17-2020 10:41-0500 Body weight 58.97 kg Willard Epperson [facility] 04-17-2020 10:41-0500 BP Diastolic 80 mm[Hg] Willard Epperson [facility] 04-17-2020 10:41-0500 BP Systolic 131 mm[Hg] Willard Epperson [facility] 04-17-2020 10:41-0500 Height 162.6 cm Willard Epperson [facility] 04-17-2020 10:41-0500 Pulse (Heart Rate) 86 /min Willard Epperson [facility] 10-18-2019 13:54-0400 Body Temperature 97.5 [degF] Chair 1 [facility] 10-18-2019 13:54-0400 BP Diastolic 79 mm[Hg] Chair 1 [facility] 10-18-2019 13:54-0400 BP Systolic 137 mm[Hg] Chair 1 [facility] 10-18-2019 13:54-0400 Pulse (Heart Rate) 112 /min Chair 1 [facility] 10-18-2019 13:54-0400 Pulse Oximetry 95 % Chair 1 [facility] 10-18-2019 13:54-0400 Respiratory Rate 20 /min Chair 1 [facility] 10-18-2019 07:03-0400 BMI (Body Mass Index) 22.31 kg/m2 Willard Epperson [facility] 10-18-2019 07:03-0400 Body weight 58.97 kg Willard Epperson [facility] 10-18-2019 07:03-0400 Height 162.6 cm Willard Epperson [facility] 04-12-2019 12:17-0500 BMI (Body Mass Index) 22.31 kg/m2 Willard Epperson [facility] 04-12-2019 12:17-0500 Body weight 58.97 kg Willard Epperson [facility] 04-12-2019 12:17-0500 BP Diastolic 78 mm[Hg] Willard Epperson [facility] 04-12-2019 12:17-0500 BP Systolic 124 mm[Hg] Willard Epperson [facility] 04-12-2019 12:17-0500 Height 162.6 cm Willard Epperson [facility] 04-12-2019 12:17-0500 Pulse (Heart Rate) 106 /min Willard Epperson [facility] 04-12-2019 12:12-0500 Body Temperature 97.9 [degF] Chair 5 [facility] 04-12-2019 12:12-0500 BP Diastolic 81 mm[Hg] Chair 5 [facility] 04-12-2019 12:12-0500 BP Systolic 134 mm[Hg] Chair 5 [facility] 04-12-2019 12:12-0500 Pulse (Heart Rate) 104 /min Chair 5 [facility] 04-12-2019 12:12-0500 Pulse Oximetry 97 % Chair 5 [facility] 04-12-2019 12:12-0500 Respiratory Rate 16 /min Chair 5 [facility] 10-12-2018 13:25-0400 Body Temperature 98.1 [degF] Chair 1 [facility] 10-12-2018 13:25-0400 BP Diastolic 74 mm[Hg] Chair 1 [facility] 10-12-2018 13:25-0400 BP Systolic 137 mm[Hg] Chair 1 [facility] 10-12-2018 13:25-0400 Pulse (Heart Rate) 130 /min Chair 1 [facility] 10-12-2018 13:25-0400 Pulse Oximetry 95 % Chair 1 [facility] 10-12-2018 10:14-0400 Respiratory Rate 14 /min Chair 1 [facility] 09-28-2018 15:44-0400 BMI (Body Mass Index) 22.31 kg/m2 Willard Epperson [facility] 09-28-2018 15:44-0400 Body weight 58.97 kg Willard Epperson [facility] 09-28-2018 15:44-0400 BP Diastolic 80 mm[Hg] Willard Epperson [facility] 09-28-2018 15:44-0400 BP Systolic 145 mm[Hg] Willard Epperson [facility] 09-28-2018 15:44-0400 Height 162.6 cm Willard Epperson [facility] 09-28-2018 15:44-0400 Pulse (Heart Rate) 89 /min Willard Epperson [facility] 09-28-2018 11:38-0400 BMI (Body Mass Index) 22.31 kg/m2 Willard Epperson [facility] 09-28-2018 11:38-0400 Height 162.6 cm Willard Epperson [facility] 09-28-2018 11:38-0400 Weight 58.97 kg Willard Epperson [facility] 01-19-2018 11:34-0400 BMI (Body Mass Index) 20.77 kg/m2 Willard Epperson [facility] 01-19-2018 11:34-0400 BP Diastolic 70 mm[Hg] Willard Epperson [facility] 01-19-2018 11:34-0400 BP Systolic 118 mm[Hg] Willard Epperson [facility] 01-19-2018 11:34-0400 Height 162.6 cm Willard Epperson [facility] 01-19-2018 11:34-0400 Pulse (Heart Rate) 76 /min Willard Epperson [facility] 01-19-2018 11:34-0400 Weight 54.88 kg Willard Epperson [facility] 10-11-2017 14:08-0400 Body Temperature 98.1 [degF] Chair 1 [facility] 10-11-2017 14:08-0400 BP Diastolic 79 mm[Hg] Chair 1 [facility] 10-11-2017 14:08-0400 BP Systolic 131 mm[Hg] Chair 1 [facility] 10-11-2017 14:08-0400 Pulse (Heart Rate) 106 /min Chair 1 [facility] 10-11-2017 14:08-0400 Pulse Oximetry 95 % Chair 1 [facility] 10-11-2017 14:08-0400 Respiratory Rate 14 /min Chair 1 [facility] 08-25-2017 11:31-0400 BMI (Body Mass Index) 22.31 kg/m2 Willard Epperson [facility] 08-25-2017 11:31-0400 BP Diastolic 83 mm[Hg] Willard Epperson [facility] 08-25-2017 11:31-0400 BP Systolic 137 mm[Hg] Willard Epperson [facility] 08-25-2017 11:31-0400 Height 162.6 cm Willard Epperson [facility] 08-25-2017 11:31-0400 Pulse (Heart Rate) 81 /min Willard Epperson [facility] 08-25-2017 11:31-0400 Weight 58.97 kg Willard Epperson [facility] 05-25-2017 09:23-0500 BMI (Body Mass Index) 22.49 kg/m2 Willard Epperson [facility] Work Phone: 05-25-2017 09:23-0500 BP Diastolic 74 mm[Hg] Willard Epperson [facility] Work Phone: 05-25-2017 09:23-0500 BP Systolic 104 mm[Hg] Willard Epperson [facility] Work Phone: 05-25-2017 09:23-0500 Height 162.6 cm Willard Epperson [facility] Work Phone: 05-25-2017 09:23-0500 Pulse (Heart Rate) 106 /min Willard Epperson [facility] Work Phone: 05-25-2017 09:23-0500 Weight 59.42 kg Willard Epperson [facility] Work Phone: 05-04-2017 13:10-0500 Body Temperature 98.29 [degF] Physician No [facility] Work Phone: 05-04-2017 13:10-0500 BP Diastolic 77 mm[Hg] Physician No [facility] Work Phone: 05-04-2017 13:10-0500 BP Systolic 121 mm[Hg] Physician No [facility] Work Phone: 05-04-2017 13:10-0500 Pulse (Heart Rate) 104 /min Physician No [email or web address] Work Phone: 05-04-2017 13:10-0500 Pulse Oximetry 96 % Physician No [email or web address] Work Phone: 05-04-2017 11:55-0500 Respiratory Rate 14 /min Physician No [email or web address] Work Phone: 04-13-2017 16:00-0500 Body Temperature 98.01 [degF] Physician No [email or web address] Work Phone: 04-13-2017 16:00-0500 BP Diastolic 77 mm[Hg] Physician No [email or web address] Work Phone: 04-13-2017 16:00-0500 BP Systolic 137 mm[Hg] Physician No [email or web address] Work Phone: 04-13-2017 16:00-0500 Pulse (Heart Rate) 115 /min Physician No [email or web address] Work Phone: 04-13-2017 16:00-0500 Pulse Oximetry 96 % Physician No [email or web address] Work Phone: 04-13-2017 16:00-0500 Respiratory Rate 16 /min Physician No [email or web address] Work Phone: 02-13-2017 09:07-0400 BMI (Body Mass Index) 21.8 kg/m2 Willard Zhou [email or web address] Work Phone: 02-13-2017 09:07-0400 BP Diastolic 81 mm[Hg] Willard Epperson [email or web address] Work Phone: 02-13-2017 09:07-0400 BP Systolic 145 mm[Hg] Willard Epperson [email or web address] Work Phone: 02-13-2017 09:07-0400 Height 162.6 cm Willard Epperson [email or web address] Work Phone: 02-13-2017 09:07-0400 Pulse (Heart Rate) 73 /min Willard Epperson [email or web address] Work Phone: 02-13-2017 09:07-0400 Weight 57.61 kg Willard Epperson [facility] Work Phone: Encounters Encounter Date Encounter Type Care Provider Facility Start: 10-11-2024 ambulatory Britney CULVER Fac ility:[facility] Start: 10-08-2024 ambulatory Breanne CULVER Fa cility:[facility] Start: [facility]04[facility]: 09-03-2024 End: 09-04-2024 ambulatory Breanne CULVER Facility:[facility] Start: 09-03-2024 [facility]: 09-03-2024 End: 09-03-2024 ambulatory Breanne CULVER Facility:[facility] Start: 08-19-2024 End: 08-19-2024 ambulatory Britney Worthington NP Facility:[facility] Start: 08-19-2024 End: 08-19-2024 [facility] Start: 08-19-2024 End: 08-19-[address] Joan Hughes MD Work Phone: [facility] Work Phone: Start: 08-19-2024 End: 08-19-2024 [facility] Start: 08-19-2024 End: 08-19-2024 ambulatory Breanne CULVER Facility:[facility] Start: 08-06-2024 End: 08-06-[address] Joan Hughes MD Work Phone: [facility] Work Phone: Start: 08-06-2024 End: 08-06-2024 [facility] 08-06-[facility]24 [facility] Start: 08-05-2024 End: 08-06-2024 ambulatory Breanne CULVER Facility:[facility] Start: 08-05-2024 End: 08-05-2024 Patient encounter procedure Britney BLANCO -[facility] Work Phone: Start: 07-09-2024 End: 07-09-[address] Breanne Ruiz MD -[facility] Work Phone: Start: 07-09-2024 End: 07-09-2024 ambulatory Efvannessa Vange Facility:[facility] Start: 07-09-2024 Registered Referred Breanne Ruiz MD [facility] Start: 06-18-2024 End: 06-18-2024 ambulatory [facility] Facility:[facility] Start: 06-18-2024 End: 06-18-2024 Patient encounter procedure Britney BLANCO -[facility] Work Phone: Start: 06-11-2024 ambulatory Breanne Vange [place] Fa cility:[facility] Start: 06-11-2024 Registered Referred Breanne Ruiz MD [facility] Start: 06-07-2024 End: 06-07-2024 ambulatory [facility] Facility:[facility] Start: 06-07-2024 End: 06-07-2024 Patient encounter procedure Britney BLANCO [facility] Work Phone: Start: 05-07-2024 End: 05-07-2024 ambulatory [facility] Facility:[facility] Start: 05-07-2024 End: 05-07-2024 ambulatory Efewongbe Isaelghe OLS Facility:[facility] Start: 05-01-2024 End: 05-01-2024 ambulatory [facility] Facility:[facility] Start: 04-15-2024 End: 04-15-2024 ambulatory Efewongbe Isaelghe OLS Facility:[facility] Start: 04-10-2024 End: 04-10-2024 ambulatory [facility] Facility:[facility] Start: 04-09-2024 End: 04-09-2024 ambulatory Efewongbe Isaelghe OLS Facility:[facility] Start: 03-28-2024 End: 03-28-2024 ambulatory Britney Elin [employer] Facility:[facility] Start: 03-19-2024 End: 03-19-2024 ambulatory Britney Elin [employer] Facility:[facility] Start: 03-07-2024 ambulatory Efewongbe Oleghe OLS Fa cility:[facility] Start: 03-05-2024 End: 03-05-2024 ambulatory Joan Hughes Facility:[facility] Start: 02-27-2024 ambulatory Efewongbe Oleghe OLS Fa cility:[facility] Start: 02-07-2024 End: 02-07-2024 ambulatory Britney Worthington [employer] Facility:[facility] Start: 02-06-2024 ambulatory Efewongbe Oleghe OLS Fa cility:[facility] Start: 01-22-2024 ambulatory Efewongbe Oleghe OLS Fa cility:[facility] Start: 01-09-2024 End: 01-10-2024 ambulatory Efewongbe Oleghe OLS Facility:[facility] Start: 01-09-2024 End: 01-09-2024 ambulatory Efewongbe Oleghe OLS Facility:[facility] Start: 12-25-2023 End: 12-25-2023 ambulatory Joan Hughes Facility:[facility] Start: 12-05-2023 End: 12-05-2023 ambulatory Efewongbe Oleghe OLS Facility:[facility] Start: 11-07-2023 End: 11-07-2023 ambulatory Joan Hughes Facility:[facility] Start: 11-07-2023 End: 11-07-2023 ambulatory Efewongbe Oleghe OLS Facility:[facility] Start: 09-12-2023 End: 09-12-[address] Joan Hughes Work Phone: [facility] Work Phone: Start: 09-05-2023 End: 09-05-[address] Joan Hughes Work Phone: [facility] Work Phone: Start: 09-05-2023 End: 09-05-[address] Joan Hughes Work Phone: [facility] Start: 08-14-2023 End: 08-14-[address] Joan Hughes Work Phone: [facility] Work Phone: Start: 08-10-2023 End: 08-10-[address] Joan Hughes Work Phone: [facility] Start: 08-10-[address] Joan lacy Work Phone: [facility] Start: 08-08-2023 End: 08-08-[address] Joan Hughes Work Phone: [facility] Work Phone: Start: 08-08-2023 End: 08-08-[address] Joan Hughes Work Phone: [facility] Start: 07-17-2023 End: 07-17-[address] Joan Hughes Work Phone: [facility] Work Phone: Start: 07-17-2023 End: 07-17-[address] Joan Hughes Work Phone: [facility] Start: 07-11-2023 End: 07-11-[address] Joan Hughes Work Phone: [facility] Work Phone: Start: 07-03-2023 End: 07-03-[address] Joan Hughes Work Phone: [facility] Work Phone: Start: 07-03-2023 End: 07-03-[address] Joan Hughes Work Phone: [facility] Start: 07-03-[address] Joan lacy Work Phone: [facility] Start: 06-26-2023 End: 06-26-[address] Joan Hughes Work Phone: [facility] Work Phone: Start: 06-08-2023 End: 06-08-[address] Joan Hughes Work Phone: [facility] Work Phone: Start: 06-06-2023 End: 06-06-[address] Joan Hughes Work Phone: [facility] Work Phone: Start: 06-06-2023 End: 06-06-[address] Joan Hughes Work Phone: [facility] Start: 05-09-2023 End: 05-09-[address] Joan Hughes Work Phone: [facility] Work Phone: Start: 05-09-2023 End: 05-09-[address] Joan Hughes Work Phone: [facility] Work Phone: Start: 05-09-2023 End: 05-09-[address] Joan Hughes Work Phone: [facility] Start: 05-01-2023 End: 05-01-[address] Joan Hughes Work Phone: [facility] Work Phone: Start: 03-14-2023 End: 03-14-[address] Joan Hughes Work Phone: [facility] Work Phone: Start: 03-10-2023 End: 03-10-[address] Joan Hughes Work Phone: [facility] Work Phone: Start: 02-27-2023 End: 02-27-[address] Joan Hughes Work Phone: [facility] Work Phone: Start: 02-22-2023 End: 02-22-[address] Joan Hughes Work Phone: [facility] Start: 02-22-[address] Joan lacy Work Phone: [facility] Start: 02-21-2023 End: 02-21-[address] Joan Hughes Work Phone: [facility] Start: 02-21-[address] Joan lacy Work Phone: [facility] Start: 02-13-2023 End: 02-13-[address] Joan Hughes Work Phone: [facility] Work Phone: Start: 02-13-2023 End: 02-13-[address] Joan Hughes Work Phone: [facility] Start: 02-13-[address] Joan lacy Work Phone: [facility] Start: 02-07-2023 End: 02-07-[address] Joan Hughes Work Phone: [facility] Work Phone: Start: 02-07-2023 End: 02-07-[address] Joan Hughes Work Phone: [facility] Start: 01-24-2023 End: 01-24-[address] Joan Hughes Work Phone: [facility] Start: 01-24-[address] Joan lacy Work Phone: [facility] Start: 01-10-2023 End: 01-10-[address] Joan Hughes Work Phone: [facility] Work Phone: Start: 01-10-2023 End: 01-10-[address] Joan Hughes Work Phone: [facility] Start: 01-10-[address] Joan lacy Work Phone: [facility] Start: 01-03-2023 End: 01-03-[address] Joan Hughes Work Phone: [facility] Work Phone: Start: 12-27-2022 End: 12-27-[address] Joan Hughes Work Phone: [facility] Work Phone: Start: 12-27-2022 End: 12-27-[address] Joan Hughes Work Phone: [facility] Start: 12-27-[address] Joan lacy Work Phone: [facility] Start: 12-23-2022 End: 12-23-[address] Joan Hughes Work Phone: [facility] Work Phone: Start: 12-13-2022 End: 12-13-[address] Joan Hughes Work Phone: [facility] Work Phone: Start: 12-13-2022 End: 12-13-[address] Joan Hughes Work Phone: [facility] Start: 12-13-[address] Joan lacy Work Phone: [facility] Start: 11-29-2022 End: 11-29-[address] Joan Hughes Work Phone: [facility] Work Phone: Start: 11-29-2022 End: 11-29-[address] Joan Hughes Work Phone: [facility] Start: 11-29-[address] Joan lacy Work Phone: [facility] Start: 11-15-2022 End: 11-15-[address] Joan Hughes Work Phone: [facility] Start: 11-15-[address] Joan lacy Work Phone: [facility] Start: 11-08-2022 End: 11-08-[address] Joan Hughes Work Phone: [facility] Work Phone: Start: 11-01-2022 End: 11-01-[address] Joan Hughes Work Phone: [facility] Work Phone: Start: 11-01-2022 End: 11-01-[address] Joan Hughes Work Phone: [facility] Start: 10-27-2022 End: 10-27-[address] Joan Hughes Work Phone: [facility] Work Phone: Start: 10-18-2022 End: 10-18-[address] Joan Hughes Work Phone: [facility] Start: 10-18-[address] Joan lacy Work Phone: [facility] Start: 10-04-2022 End: 10-04-[address] Joan Hughes Work Phone: [facility] Work Phone: Start: 10-04-2022 End: 10-04-[address] Joan Hughes Work Phone: [facility] Start: 09-20-2022 End: 09-20-[address] Joan Hughes Work Phone: [facility] Work Phone: Start: 09-20-2022 End: 09-20-[address] Joan Hughes Work Phone: [facility] Start: 09-20-[address] Joan lacy Work Phone: [facility] Start: 09-06-2022 End: 09-06-[address] Joan Hughes Work Phone: [facility] Start: 09-06-2022 End: 09-06-[address] Joan Hughes Work Phone: [facility] Work Phone: Start: 09-06-2022 End: 09-06-[address] Joan Hughes Work Phone: [facility] Start: 09-06-[address] Joan lacy Work Phone: [facility] Start: 08-23-2022 End: 08-23-[address] Joan Hughes Work Phone: [facility] Start: 08-23-2022 End: 08-23-[address] Joan Hughes Work Phone: [facility] Work Phone: Start: 08-23-2022 End: 08-23-[address] Joan Hughes Work Phone: [facility] Start: 08-23-[address] Joan lacy Work Phone: [facility] Start: 08-09-2022 End: 08-09-[address] Joan Hughes Work Phone: [facility] Work Phone: Start: 08-09-2022 End: 08-09-[address] Joan Hughes Work Phone: [facility] Start: 08-09-[address] Joan lacy Work Phone: [facility] Start: 07-26-2022 End: 07-26-[address] Joan Hughes Work Phone: [facility] Work Phone: Start: 07-26-2022 End: 07-26-[address] Joan Hughes Work Phone: [facility] Start: 07-26-[address] Joan lacy Work Phone: [facility] Start: 07-13-2022 End: 07-13-[address] Joan Hughes Work Phone: [facility] Work Phone: Start: 07-13-2022 End: 07-13-[address] Joan Hughes Work Phone: [facility] Start: 07-13-[address] Joan lacy Work Phone: [facility] Start: 07-12-2022 End: 07-12-[address] Joan Hughes Work Phone: [facility] Start: 07-12-2022 End: 07-12-[address] Joan Hughes Work Phone: [facility] Work Phone: Start: 07-12-2022 End: 07-12-[address] Joan Hughes Work Phone: [facility] Start: 07-04-2022 End: 07-04-[address] Joan Hughes Work Phone: [facility] Start: 06-28-2022 End: 06-28-[address] Joan Hughes Work Phone: [facility] Work Phone: Start: 06-28-2022 End: 06-28-[address] Joan Hughes Work Phone: [facility] Start: 06-27-2022 End: 06-27-[address] Joan Hughes Work Phone: [facility] Start: 06-23-2022 End: 06-23-2022 Telemedicine consultation with patient Willard Epperson MD Work Phone: [facility] Neuro[facility] Comment on above: Multiple sclerosis, primary progressive (HCC) (Primary Dx) Start: 06-14-2022 End: 06-14-[address] Joan Hughes Work Phone: [facility] Start: 06-14-[address] Joan lacy Work Phone: [facility] Start: 06-03-2022 End: 06-03-[address] Joan Hughes Work Phone: [facility] Start: 06-03-2022 End: 06-03-[address] Joan Hughes Work Phone: [facility] Work Phone: Start: 06-03-2022 End: 06-03-[address] Joan Hughes Work Phone: [facility] Start: 06-03-[address] Joan lacy Work Phone: [facility] Start: 06-01-2022 End: 06-01-[address] Joan Hughes Work Phone: [facility] Work Phone: Start: 06-01-2022 End: 06-01-[address] Joan Hughes Work Phone: [facility] Start: 06-01-[address] Joan lacy Work Phone: [facility] Start: 05-31-[address] Joan lacy Work Phone: [facility] Start: 05-28-2022 End: 05-28-[address] Joan Hughes Work Phone: [facility] Start: 05-28-[address] Joan lacy Work Phone: [facility] Start: 05-27-2022 End: 05-27-[address] Joan Hughes Work Phone: [facility] Work Phone: Start: 05-27-2022 End: 05-27-[address] Joan Hughes Work Phone: [facility] Start: 05-27-[address] Joan lacy Work Phone: [facility] Start: 05-17-2022 End: 05-17-[address] Joan Hughes Work Phone: [facility] Work Phone: Start: 05-17-2022 End: 05-17-[address] Joan Hughes Work Phone: [facility] Start: 05-17-[address] Joan lacy Work Phone: [facility] Start: 05-03-2022 End: 05-03-[address] Joan Hughes Work Phone: [facility] Work Phone: Start: 05-03-2022 End: 05-03-[address] Joan Hughes Work Phone: [facility] Start: 04-19-2022 End: 04-19-[address] Joan Hughes Work Phone: [facility] Start: 04-19-[address] Joan lacy Work Phone: [facility] Start: 04-09-2022 End: 04-09-[address] Joan Hughes Work Phone: [facility] Start: 04-05-2022 End: 04-05-[address] Joan Hughes Work Phone: [facility] Start: 04-05-2022 End: 04-05-[address] Joan Hughes Work Phone: [facility] Work Phone: Start: 04-05-2022 End: 04-05-[address] Joan Hughes Work Phone: [facility] Start: 04-05-[address] Joan lacy Work Phone: [facility] Start: 03-22-2022 End: 03-22-[address] Joan Hughes Work Phone: [facility] Work Phone: Start: 03-22-2022 End: 03-22-[address] Joan Hughes Work Phone: [facility] Start: 03-22-[address] Joan lacy Work Phone: [facility] Start: 03-08-2022 End: 03-08-[address] Joan Hughes Work Phone: [facility] Work Phone: Start: 03-08-2022 End: 03-08-[address] Joan Hughes Work Phone: [facility] Start: 02-22-2022 End: 02-22-[address] Joan Hughes Work Phone: [facility] Work Phone: Start: 02-22-2022 End: 02-22-[address] Joan Hughes Work Phone: [facility] Start: 02-22-[address] Joan lacy Work Phone: [facility] Start: 02-17-2022 End: 02-17-[address] Joan Hughes Work Phone: [facility] Start: 02-08-2022 End: 02-08-[address] Joan Hughes Work Phone: [facility] Work Phone: Start: 02-08-2022 End: 02-08-[address] Joan Hughes Work Phone: [facility] Start: 02-08-[address] Joan lacy Work Phone: [facility] Start: 01-25-2022 End: 01-25-[address] Joan Hughes Work Phone: [facility] Work Phone: Start: 01-25-2022 End: 01-25-[address] Joan Hughes Work Phone: [facility] Start: 01-25-[address] Joan lacy Work Phone: [facility] Start: 01-14-2022 ambulatory [facility] Start: 01-11-2022 End: 01-11-[address] Joan Hughes Work Phone: [facility] Work Phone: Start: 01-11-2022 End: 01-11-[address] Joan Hughes Work Phone: [facility] Start: 12-28-2021 End: 12-28-[address] Joan Hughes Work Phone: [facility] Start: 12-14-2021 End: 12-14-[address] Joan Hughes Work Phone: [facility] Start: 12-01-2021 ambulatory Joan villanueva MD Work Phone: Internal [facility] Start: 11-30-2021 End: 11-30-[address] Joan Hughes Work Phone: [facility] Start: 11-16-2021 End: 11-16-[address] Joan Hughes Work Phone: [facility] Start: 11-16-[address] Joan lacy Work Phone: [facility] Start: 11-13-2021 End: 11-13-[address] Joan Hughes Work Phone: [facility] Start: 11-12-2021 End: 11-12-[address] Joan Hughes Work Phone: [facility] Start: 11-02-2021 End: 11-02-[address] Joan Hughes Work Phone: [facility] Start: 11-02-[address] Joan lacy Work Phone: [facility] Start: 10-25-2021 End: 10-25-[address] Joan Hughes Work Phone: [facility] Start: 10-25-[address] Joan lacy Work Phone: [facility] Start: 10-18-2021 End: 10-18-[address] Joan Hughes Work Phone: [facility] Start: 10-18-[address] Joan lacy Work Phone: [facility] Start: 10-11-2021 End: 10-11-[address] Joan Hughes Work Phone: [facility] Start: 10-08-2021 End: 10-08-[address] Joan Hughes Work Phone: [facility] Start: 09-28-2021 Non-patient / Non-visit Dr. Michael Hughes Work Phone: [facility] Start: 09-27-2021 Non-patient / Non-visit Dr. Michael Hughes Work Phone: [facility] Start: 09-26-2021 Non-patient / Non-visit Dr. Michael Hughes Work Phone: [facility] Start: 09-25-2021 Non-patient / Non-visit Dr. Michael Hughes Work Phone: [facility] Start: 09-25-2021 Non-patient / Non-visit Dr. Michael Hughes Work Phone: [facility] Start: 09-24-2021 Non-patient / Non-visit Dr. Michael Hughes Work Phone: [facility] Start: 09-24-2021 Non-patient / Non-visit Dr. Michael perry [employer] Work Phone: [facility] Start: 09-23-2021 Non-patient / Non-visit Dr. Michael perry [employer] Work Phone: [facility] Start: 09-23-2021 Non-patient / Non-visit [facility] perry [employer] [facility] Start: 09-22-2021 Non-patient / Non-visit Dr. Michael perry [employer] Work Phone: [facility] Start: 09-22-2021 Non-patient / Non-visit [facility]. Michael perry [employer] [facility] Start: 09-21-2021 Coordination of care plan Mer Prado RN [facility] Start: 09-21-2021 Non-patient / Non-visit Dr. Michael perry [employer] Work Phone: [facility] Start: 09-21-2021 Non-patient / Non-visit Dr. Michael perry [employer] [facility] Start: 09-20-2021 Non-patient / Non-visit Dr. Michael perry [employer] Work Phone: [facility] Start: 09-20-2021 Non-patient / Non-visit Dr. Michael perry [employer] [facility] Start: 09-19-2021 Non-patient / Non-visit Dr. Michael perry [employer] Work Phone: [facility] Start: 09-19-2021 Non-patient / Non-visit Dr. Michael perry [employer] Work Phone: [facility] Start: 09-18-2021 Non-patient / Non-visit Dr. Michael Hughes Work Phone: [facility] Start: 09-17-2021 Non-patient / Non-visit Dr. Michael Hughes Work Phone: [facility] Start: 09-16-2021 Non-patient / Non-visit Dr. Michael Hughes Work Phone: [facility] Start: 09-16-2021 End: 09-28-2021 Evaluation and management of inpatient [facility] Start: 07-22-2021 ambulatory [facility] Start: 04-09-2021 End: 04-13-2021 ambulatory [facility] Start: 04-09-2021 End: 04-09-2021 Office outpatient visit 40 minutes Willard Epperson MD Work Phone: [facility] Physician [facility], Neuroscience Comment on above: Multiple sclerosis, primary progressive (HCC) (Primary Dx); Vitamin D deficiency; Spasticity; Ataxia; Cognitive impairment Start: 04-09-2021 End: 04-09-2021 ambulatory Willard Epperson MD Work Phone: [facility] Comment on above: Multiple sclerosis, primary progressive (HCC) (Primary Dx); Multiple sclerosis (HCC) Start: 04-08-2021 Coordination of care plan Zahra Pratt RN [facility] Start: 01-08-2021 End: 01-08-2021 Refill Danyell Cardoso MA [facility] Comment on above: Vitamin D deficiency Start: 10-29-2020 End: 10-29-2020 Orders Only Willard Epperson MD Work Phone: [facility] Physician [facility], Neuroscience Comment on above: Multiple sclerosis, primary progressive (HCC) (Primary Dx) Start: 10-16-2020 End: 10-20-2020 ambulatory WILLARD EPPERSON [facility] Start: 10-16-2020 End: 10-16-2020 Office outpatient visit 25 minutes Willard Epperson MD Work Phone: [facility] Comment on above: Multiple sclerosis, primary progressive (HCC) (Primary Dx); Vitamin D deficiency; Paresis of lower extremity (HCC); History of gait disorder Start: 10-16-2020 End: 10-16-2020 ambulatory WILLARD EPPERSON [facility] Start: 10-16-2020 End: 10-16-2020 ambulatory Willard Epperson MD Work Phone: [facility] Comment on above: Multiple sclerosis, primary progressive (HCC) (Primary Dx) Start: 10-13-2020 End: 10-13-2020 Orders Only Willard Epperson MD Work Phone: [facility] Start: 10-12-2020 End: 10-12-2020 Coordination of care plan Fifi Guillermo RN [facility] Start: 10-07-2020 End: 10-07-2020 Coordination of care plan Fifi Guillermo RN [facility] Start: 08-06-2020 End: 08-06-2020 Orders Only Hermila Bowen Work Phone: [facility] Start: 04-21-2020 End: 04-21-2020 Documentation procedure Jeanne Hilario [facility], Neuroscience Start: 04-17-2020 End: 04-17-2020 ambulatory WILLARD EPPERSON [facility] Start: 04-17-2020 End: 04-17-2020 Office outpatient visit 25 minutes Willard Epperson Work Phone: [facility] Comment on above: Multiple sclerosis ( HCC) (Primary Dx); Fatigue, unspecified type; Orthostasis; Falls frequently Start: 04-17-2020 End: 04-17-2020 Patient encounter procedure Willard Epperson Work Phone: [facility] Comment on above: Multiple sclerosis, primary progressive (HCC) (Primary Dx) Start: 04-13-2020 End: 04-13-2020 Coordination of care plan [facility] Start: 10-29-2019 End: 10-29-2019 Admission to [facility] Start: 10-24-2019 End: 10-24-2019 Documentation procedure Jeanne Hilario [facility], Neuroscience Start: 10-18-2019 End: 10-18-2019 Phys/qhp telephone evaluation 11-20 min Willard Epperson Work Phone: [facility] Comment on above: Multiple sclerosis ( HCC) Start: 10-18-2019 End: 10-18-2019 Patient encounter procedure Willard Epperson Work Phone: [facility] Comment on above: Multiple sclerosis, primary progressive (HCC) (Primary Dx) Start: 10-18-2019 End: 10-18-2019 Subsequent hospital visit by physician Willard Epperson Work Phone: [facility] MRI Comment on above: Multiple sclerosis ( HCC) Start: 10-09-2019 End: 10-09-2019 Coordination of care plan [facility] Start: 04-18-2019 End: 04-18-2019 Documentation procedure Jeannedivya Hilario [facility] K[facility], Neuroscience Start: 04-12-2019 End: 04-12-2019 Office outpatient visit 25 minutes Willard Epperson Work Phone: [facility] Comment on above: Multiple sclerosis ( HCC) (Primary Dx) Start: 04-12-2019 End: 04-12-2019 Patient encounter procedure Willard Epperson Work Phone: [facility] Comment on above: Multiple sclerosis, primary progressive (HCC) (Primary Dx); Multiple sclerosis (HCC) Start: 04-11-2019 End: 04-11-2019 Coordination of care plan Melva Zuleta [facility] Start: 10-12-2018 End: 10-12-2018 Patient encounter procedure Willard Epperson Work Phone: [facility] Comment on above: Multiple sclerosis, primary progressive (HCC) (Primary Dx) Start: 09-28-2018 End: 09-28-2018 Office outpatient visit 25 minutes Willard Epperson Work Phone: [facility] Comment on above: Multiple sclerosis ( HCC) (Primary Dx); Therapeutic drug monitoring Start: 09-28-2018 End: 09-28-2018 Patient encounter procedure Willard Epperson Work Phone: [facility] MRI Comment on above: Multiple sclerosis ( HCC) Start: 01-23-2018 Patient encounter Jeanne Hilario [facility] Start: 01-19-2018 End: 01-19-2018 Office outpatient visit 40 minutes Aysha Epperson Work Phone: [facility] Start: 10-11-2017 End: 10-11-2017 Ambulatory Murtaza Fish Work Phone: [facility] Start: 08-25-2017 Office/outpatient vi sit, est, level 4 Willard Epperson Work Phone: [facility] Start: 08-11-2017 Ambulatory Jeanne Hilario [facility] Start: 05-25-2017 Ambulatory Jeanne Hilario [facility] Start: 05-25-2017 Office/outpatient vi sit, est, level 4 Willard Epperson Work Phone: [facility] Start: 05-04-2017 Ambulatory Murtaza muñoz Work Phone: [facility] Start: 04-13-2017 Ambulatory Murtaza muñoz Work Phone: [facility] Start: 02-13-2017 End: 02-13-2017 Documentation procedure Jeanne Hilario [facility] Start: 02-13-2017 Office/outpatient vi sit, est, level 4 Willard Epperson Work Phone: [facility] Start: 01-25-2017 Ambulatory Jeanne Hilario [facility] Procedures Date Procedure Procedure Detail [...] 10-01-2028 Screening for malignant neoplasm of colon [facility] Start: 10-02-2023 Colonoscopy [address] [facility] Start: 10-02-2023 COLORECTAL CANCER SCREENING COLORECTAL CANCER SCREENING [facility] Start: 02-08-2022 Tetanus vaccination [facility] Start: 02-08-2022 Urine microalbumin profile DTAP,TDAP,TD (2 - Td or Tdap) [facility] Start: 02-03-2022 Influenza vaccination [facility] Start: 09-28-2021 Patient discharge [facility] Work Phone: Start: 09-28-2021 End: 09-28-2021 ambulatory [facility] Start: 09-28-2021 End: 09-28-2021 Patient encounter procedure [facility] Start: 09-27-2021 End: 09-27-2021 Patient encounter procedure [facility] MRI Start: 09-21-2021 Following clinical pathway protocol [facility] Work Phone: Start: 09-21-2021 [facility] Work Phone: Start: 09-20-2021 Care planning and problem solving actions [facility] Work Phone: Start: 09-18-2021 Catheterization of vein [facility] Work Phone: Start: 09-18-2021 Consultation [facility] Work Phone: Start: 09-18-2021 Incentive spirometry [facility] Work Phone: Start: 09-18-2021 Insertion of catheter into peripheral vein [facility] Work Phone: Start: 09-18-2021 Measuring intake and output [facility] Work Phone: Start: 09-18-2021 Oxygen therapy [facility] Work Phone: Start: 09-18-2021 Physiotherapy of chest [facility] Work Phone: Start: 09-18-2021 Providing care according to standard [facility] Work Phone: Start: 09-18-2021 Vital signs measurements [facility] Work Phone: Start: 09-18-2021 [facility] Work Phone: Start: 09-18-2021 Care planning and problem solving actions [facility] Work Phone: Start: 09-18-2021 Continuous positive airway pressure ventilation treatment [facility] Work Phone: Start: 09-17-2021 Speech therapy assessment [facility] Work Phone: Start: 09-17-2021 [facility] Work Phone: Start: 09-16-2021 Ambulation without limitation [facility] Work Phone: Start: 09-16-2021 Assessment of risk of venous thromboembolism [facility] Work Phone: Start: 09-16-2021 Insertion of catheter into peripheral vein [facility] Work Phone: Start: 09-16-2021 Providing care according to standard [facility] Work Phone: Start: 09-16-2021 Referral to occupational therapist [facility] Work Phone: Start: 09-16-2021 Referral to service [facility] Work Phone: Start: 09-16-2021 [facility] Work Phone: Start: 09-16-2021 Following clinical pathway protocol [facility] Work Phone: Start: 09-16-2021 Admission procedure [facility] Work Phone: Start: 09-16-2021 Bacteria identified in Blood by Culture Blood Culture [facility] Work Phone: Start: 09-16-2021 Bacteria identified in Urine by Culture Urine Culture [facility] Work Phone: Start: 04-23-2021 COVID-19 Vaccine (3 - Booster for Pfizer series) COVID-19 Vaccine (3 - Booster for Pfizer series) [facility] Start: 04-16-2021 End: 04-16-2021 ambulatory 04/16/2021 Infusion/Injection Infusion Therapy [facility] Start: 04-09-2021 End: 04-09-2021 ambulatory 04/09/2021 Infusion/Injection Infusion Therapy [facility] Start: 04-09-2021 End: 04-09-2021 Patient encounter procedure 04/09/2021 Office Visit Neurology Willard Epperson MD [address] [facility] [address] [place] [address] [phone] [facility] Start: 03-23-2021 COVID-19 Vaccine (3 - Booster for Pfizer series) COVID-19 Vaccine (3 - Booster for Pfizer series) [facility] Start: 03-10-2021 Screening for malignant neoplasm of breast Mammogram [facility] Start: 03-10-2021 Screening mammography Mammogram [facility] Start: 03-05-2021 End: 10-19-2021 MR Brain With And Without Contrast MR Brain With And Without Contrast Imaging Routine Multiple sclerosis, primary progressive (HCC) Expected: 03/05/2021, Expires: 10/19/2021 [facility] Comment on above: Expected: 03/05/2021, Expires: 2 Start: 03-05-2021 End: 10-19-2021 MRI of cervical spine MR Cervical Spine With And Without Contrast Imaging Routine Multiple sclerosis, primary progressive (HCC) Expected: 03/05/2021, Expires: 10/19/2021 [facility] Comment on above: Expected: 03/05/2021, Expires: 2 Start: 03-05-2021 End: 10-19-2021 MRI of thoracic spine MR Thoracic Spine With And Without Contrast Imaging Routine Multiple sclerosis, primary progressive (HCC) Expected: 03/05/2021, Expires: 10/19/2021 [facility] Comment on above: Expected: 03/05/2021, Expires: 2 Start: 02-03-2021 Influenza vaccination [facility] Start: 12-16-2020 COVID-19 Vaccine (3 - Booster for Pfizer series) COVID-19 Vaccine (3 - Booster for Pfizer series) [facility] Start: 10-19-2020 COVID-19 Vaccine (2 - Pfizer 2-dose series) COVID-19 Vaccine (2 - Pfizer 2-dose series) [facility] Start: 10-16-2020 End: 10-16-2020 Infusion/Injection [facility] Start: 04-17-2020 End: 04-17-2020 Office Visit 04/17/2020 Office Visit Neurology Willard Epperson MD [address] [address] [phone] [facility] Start: 04-17-2020 End: 04-17-2020 Infusion/Injection [facility] Start: 02-04-2020 Influenza vaccination given [facility] Start: 01-22-[address] Mammography [address] [facility] Start: 01-15-2020 Adult depression screening assessment DEPRESSION SCREENING [facility] Start: 10-18-2019 End: 10-18-2019 Office Visit 10/18/2019 Office Visit Neurology Willard Epperson MD [address] [facility] [address] [address] [phone] [facility] Start: 10-18-2019 End: 10-18-2019 Infusion/Injection [facility] Start: 10-18-2019 End: 10-18-2019 Appointment 10/18/2019 Appointment Radiology Willard Epperson MD [address] [facility] [address] [address] [phone] [facility] MRI Start: 04-12-2019 End: 04-12-2019 Infusion/Injection 04/12/2019 Infusion/Injection Infusion Therapy [facility] Start: 03-11-2019 End: 03-11-2019 Office Visit 03/11/2019 Office Visit Neurology Willard Epperson MD [address] [facility] [address] [address] [phone] [facility] Physician [facility], Neuroscience Start: 02-04-2019 DIABETES SCREEN DIABETES SCREEN [facility] Start: 02-03-2019 Influenza vaccination given [facility] Start: 10-12-2018 End: 10-12-2018 Infusion/Injection 10/12/2018 Infusion/Injection Infusion Therapy Willard Epperson MD [address] [facility] [address] [address] [phone] [facility] Start: 04-13-2018 End: 04-13-2018 Ambulatory 04/13/2018 Office Visit Neurology Willard Epperson MD [address] [facility] [address] [address] [phone] [facility] Start: 04-13-2018 End: 04-13-2018 Ambulatory 04/13/2018 Infusion/Injection Infusion Therapy [facility] Start: 02-03-2018 Influenza vaccination [facility] Start: 02-03-2018 Influenza vaccination given SEQUENTIAL INFLUENZA VACCINE (#1) [facility] Start: 01-19-2018 End: 01-19-2018 Ambulatory 01/19/2018 Office Visit Neurology Willard Epperson MD [address] [address] [phone] [facility] Start: 10-11-2017 Ambulatory 10/11/2017 Infusion/Injection Infusion Therapy [facility] Start: 08-25-2017 Ambulatory 08/25/2017 Office Visit Neurology Willard Epperson MD [address] [address] [phone] [facility] Start: 08-17-2017 Ambulatory 08/17/2017 Appointment Radiology Willard Epperson MD [address] [address] [phone] [facility] MRI Start: 05-25-2017 Ambulatory 05/25/2017 Office Visit Neurology Willard Epperson MD [address] [facility] [address] [address] [phone] [facility] Start: 05-04-2017 Ambulatory 05/04/2017 Infusion/Injection Infusion Therapy [facility] Start: 02-13-2017 Ambulatory 02/13/2017 Office Visit Neurology Willard Epperson MD [address] [facility] [address] [address] [phone] [facility] Start: 02-03-2017 Influenza vaccination SEQUENTIAL INFLUENZA VACCINE (#1) [facility] Work Phone: Start: 02-03-2017 SEQUENTIAL INFLUENZA VACCINE (#1) SEQUENTIAL INFLUENZA VACCINE (#1) [facility] Work Phone: Start: 03-31-2016 HPV TESTING HPV TESTING [facility] Start: 03-31-2016 PAP TESTING PAP TESTING [facility] Start: 02-09-2016 LIPID SCREEN LIPID SCREEN [facility] Start: 02-21-2008 Administration of herpes zoster vaccine Zoster Vaccines (1 of 2) [facility] Start: 02-21-2008 Screening for malignant neoplasm of colon [facility] Start: 02-21-2008 SHINGRIX VACCINE (1 of 2) SHINGRIX VACCINE (1 of 2) [facility] Start: 2003 COLOGUARD (FIT-DNA) COLOGUARD (FIT-DNA) [facility] Start: [address] COLONOGRAPHY [facility] Start: 2003 FECAL OCCULT BLOOD FECAL OCCULT BLOOD [facility] Start: 2003 SIGMOIDOSCOPY SIGMOIDOSCOPY [facility] Start: 02-21-1976 HEPATITIS C SCREENING HEPATITIS C SCREENING [facility] Start: 02-21-1976 HIV SCREENING HIV SCREENING [facility] Start: 1974 COVID-19 Vaccine (1 of 2) COVID-19 Vaccine (1 of 2) [facility] Start: 1974 COVID-19 Vaccine (1) COVID-19 Vaccine (1) [facility] Start: 1970 Adolescent depression screening assessment Depression Screening (PHQ9) [facility] Start: 1970 Depression screening using PHQ-9 (Patient Health Questionnaire 9) score [facility] Start: 1961 History and physical examination, annual for health maintenance Wellness Visit [facility] Start: 1958 Protein mass conc Mammogram [facility] Start: 1958 Screening for malignant neoplasm of colon [facility] Start: 1958 Screening mammography Mammogram [facility] Start: 1958 Colonoscopy COLONOSCOPY [facility] Work Phone: Start: 1958 Cytopathology procedure, preparation of smear, genital source PAP SMEAR [facility] Work Phone: Start: 1958 End: 1958 Screening colonoscopy COLONOSCOPY [facility] Work Phone: Start: 1958 End: 1958 Screening for malignant neoplasm of cervix PAP SMEAR [facility] Start: 1958 TETANUS EVERY 10 YR TETANUS EVERY 10 YR [facility] Work Phone: Start: 1960 End: 1958 Tetanus vaccination TETANUS EVERY 10 YR [facility] Work Phone: End: 04-17-2021 Cobalamin (Vitamin B12) [Mass/Vol] Vitamin B12 Lab Routine Fatigue, unspecified type 1 Occurrences starting 04/17/2020 until 04/17/2021 [facility] Comment on above: 1 Occurrences starting 04/17/2020 until 04/17/2021 End: 04-17-2021 Complete blood count with white cell differential, manual CBC and Differential Lab Routine Multiple sclerosis, primary progressive (HCC) 1 Occurrences starting 04/17/2020 until 04/17/2021 [facility] Comment on above: 1 Occurrences starting 04/17/2020 until 04/17/2021 End: 10-02-2019 Complete blood count with white cell differential, manual CBC and Differential Routine Therapeutic drug monitoring 1 Occurrences starting 10/01/2018 until 10/02/2019 [facility] Comment on above: 1 Occurrences starting 10/01/2018 until 10/02/2019 End: 10-16-2021 Complete blood count with white cell differential, manual CBC and Differential Lab Routine Multiple sclerosis, primary progressive (HCC) 1 Occurrences starting 10/16/2020 until 10/16/2021 [facility] Comment on above: 1 Occurrences starting 10/16/2020 until 10/16/2021 End: 04-17-2021 Comprehensive metabolic 2000 panel Comprehensive Metabolic Panel Lab Routine Multiple sclerosis, primary progressive (HCC) 1 Occurrences starting 04/17/2020 until 04/17/2021 [facility] Comment on above: 1 Occurrences starting 04/17/2020 until 04/17/2021 End: 10-02-2019 Comprehensive metabolic 2000 panel Comprehensive Metabolic Panel Routine Therapeutic drug monitoring 1 Occurrences starting 10/01/2018 until 10/02/2019 [facility] Comment on above: 1 Occurrences starting 10/01/2018 until 10/02/2019 End: 05-25-2018 Comprehensive metabolic panel [AGGREGATE] Comprehensive Metabolic Panel Routine Multiple sclerosis (HCC) 1 Occurrences starting 05/25/2017 until 05/25/2018 [facility] Work Phone: Comprehensive metabo lic panel [AGGREGATE] Comprehensive Metabolic Panel Routine Multiple sclerosis (HCC) 05/25/2017 10:22 AM EST [facility] Work Phone: End: 10-16-2021 Hepatic function 2000 panel - Serum or Plasma Hepatic Function Panel Lab Routine Multiple sclerosis, primary progressive (HCC) 1 Occurrences starting 10/16/2020 until 10/16/2021 [facility] Comment on above: 1 Occurrences starting 10/16/2020 until 10/16/2021 End: 04-17-2021 Immunoglobulin measurement IgG, IgA, IgM Immunoglobulins Lab Routine Multiple sclerosis, primary progressive (HCC) 1 Occurrences starting 04/17/2020 until 04/17/2021 [facility] Comment on above: 1 Occurrences starting 04/17/2020 until 04/17/2021 End: 10-16-2021 Immunoglobulin measurement IgG, IgA, IgM Immunoglobulins Lab Routine Multiple sclerosis, primary progressive (HCC) 1 Occurrences starting 10/16/2020 until 10/16/2021 [facility] Comment on above: 1 Occurrences starting 10/16/2020 until 10/16/2021 End: 09-28-2018 MR Brain With And Without Contrast MR Brain With And Without Contrast Routine Multiple sclerosis (HCC) Once for 1 Occurrences starting 09/28/2018 until 09/28/2018 [facility] Comment on above: Once for 1 Occurrences starting 09/29/19 19 until 09/28/2018 MR Brain With And Without Contrast MR Brain With And Without Contrast Routine Multiple sclerosis (HCC) 09/28/2018 1:06 PM EDT [facility] End: 08-25-2018 OCT, Optic Nerve - OU - Both Eyes OCT, Optic Nerve - OU - Both Eyes Routine Multiple sclerosis (HCC) 1 Occurrences starting 08/25/2017 until 08/25/2018 [facility] Patient referral [facility] Work Phone: End: 12-31-2022 Screening mammography bi 2-view breast inc cad HUBERT SCREENING Radiology Routine Encounter for screening mammogram for breast cancer 1 Occurrences starting 12/01/2021 until 12/31/2022 [facility] Work Phone: Comment on above: 1 Occurrences starting 12/01/2021 until 12/31/2022 End: 04-17-2021 TSH Qn TSH with Reflex Free T4 Lab Routine Fatigue, unspecified type 1 Occurrences starting 04/17/2020 until 04/17/2021 [facility] Comment on above: 1 Occurrences starting 04/17/2020 until 04/17/2021 End: 04-17-2021 Vitamin D, 25-hydroxy measurement Vitamin D, Total, 25-OH Lab Routine Multiple sclerosis, primary progressive (HCC) 1 Occurrences starting 04/17/2020 until 04/17/2021 [facility] Comment on above: 1 Occurrences starting 04/17/2020 until 04/17/2021 End: 10-01-2019 Vitamin D, 25-hydroxy measurement Vitamin D, Total, 25-OH Routine Therapeutic drug monitoring 1 Occurrences starting 10/01/2018 until 10/01/2019 [facility] Comment on above: 1 Occurrences starting 10/01/2018 until 10/01/2019 End: 05-25-2018 Vitamin D, Total, 25-OH Vitamin D, Total, 25-OH Routine Multiple sclerosis (HCC) 1 Occurrences starting 05/25/2017 until 05/25/2018 [facility] Work Phone: Vitamin D, Total, 25-OH Vitamin D, Total, 25-OH Routine Multiple sclerosis (HCC) 05/25/2017 10:22 AM EST [facility] Work Phone: Immunizations Immunization Date Immunization Notes Care Provider Fa cili 10-21-2020 COVID-19 vaccine, ag e 12+ yr (PFIZER-BIONTECH - PURPLE TOP) Joan Hughes MD Work Phone: [facility] Work Phone: 09-28-2020 COVID-19 vaccine, ag e 12+ yr (PFIZER-BIONTECH - PURPLE TOP) Joan Hughes MD Work Phone: [facility] Work Phone: 02-09-2017 AFLURIA QUAD 18, PF, syringe; Translations: [Afluria Quad (Pf) 60 McG/0.5 Ml Intramuscular Syringe] Jeanne Sulaiman [facility] Work Phone: 02-08-2016 influenza, seasonal, injectable Joan Hughes MD Work Phone: [facility] 02-22-2013 influenza virus vaccine, unspecified formulation Joan Hughes MD Work Phone: [facility] 03-03-2012 influenza virus vaccine, unspecified formulation Joan Hughes MD Work Phone: [facility] 02-09-2012 tetanus toxoid, redu deniz diphtheria toxoid, and acellular pertussis vaccine, adsorbed Joan Hughes MD Work Phone: [facility] 04-07-2010 pneumococcal polysaccharide vaccine, 23 valent Joan Hughes MD Work Phone: [facility] 03-25-2008 influenza virus vaccine, unspecified formulation Joan Hughes MD Work Phone: [facility] 04-03-2007 influenza virus vaccine, unspecified formulation Joan Hughes MD Work Phone: [facility] Work Phone: 04-17-2006 influenza virus vaccine, unspecified formulation Joan Hughes MD Work Phone: [facility] 05-17-2005 influenza virus vaccine, unspecified formulation Joan Hughes MD Work Phone: [facility] Work Phone: Payers Date Payer Category Payer Self-pay [id number] 2023 Unknown [id number] 2013 Unknown [id number] 2. [id number] 2013 Unknown [id number] 2. 16.840.1.518274.3.249.13 2013 Unknown [id number] 1.2.84[id number] 2013 Unknown [id number]. 1.13.385.2.7.3.439732.315 1958 Unknown [id number] 2.16. 840.1.167188.3.579.2.900 1958 Unknown [id number] 2.16. 840.1.269799.3.579.2.900 1958 Unknown [id number] 2.16. 840.1.012219.3.579.2.900 1958 Unknown [id number] 2.16. 840.1.972134.3.579.2.900 1958 Unknown [id number] 2.16. 840.1.373455.3.579.2.900 1958 Unknown [id number] 2.16. 840.1.990421.3.579.2.900 1958 Unknown [id number] 2.16. 840.1.732032.3.579.2.900 1958 Unknown [id number] 2.16. 840.1.529520.3.579.2.900 1958 Unknown [id number] 2.16. 840.1.663812.3.579.2.900 1958 Unknown [id number] 2.16. 840.1.485540.3.579.2.903 1958 Unknown [id number] 2.16. 840.1.144147.3.579.2.903 Medicare MEDICARE PART A B [id number] Unknown [id number] 2.16.8 40.1.041252.3.579.2.462 Unknown [id number] 2.16.8 40.1.317050.3.579.2.462 Unknown [id number] 2.16.8 40.1.907039.3.579.2.462 Unknown [id number] 2.16.8 40.1.841823.3.579.2.462 Unknown [id number] 2.16.8 40.1.203244.3.579.2.462 Unknown [id number] 2.16.8 40.1.184645.3.579.2.462 Unknown [id number] 2.16.8 40.1.235185.3.579.2.462 Unknown [id number] 2.16.8 40.1.222932.3.579.2.462 Unknown [id number] 2.16.8 40.1.591200.3.579.2.462 Unknown [id number] 2.16.8 40.1.193269.3.579.2.462 Unknown [id number] 2.16.8 40.1.030144.3.579.2.462 Unknown [id number] 2.16.8 40.1.009591.3.579.2.462 Unknown [id number] 2.16.8 40.1.936860.3.579.2.462 Unknown [id number] 2.16.8 40.1.214812.3.579.2.462 Unknown [id number] 2.16.8 40.1.927512.3.579.2.462 Unknown [id number] 2.16.8 40.1.367318.3.579.2.462 Unknown [id number] 2.16.8 40.1.412386.3.579.2.462 Unknown [id number] 2.16.8 40.1.096523.3.579.2.462 Unknown [id number] 2.16.8 40.1.354926.3.579.2.462 Unknown [id number] 2.16.8 40.1.416037.3.579.2.462 Unknown [id number] 2.16.8 40.1.478023.3.579.2.462 Unknown [id number] 2.16.8 40.1.922475.3.579.2.462 Unknown [id number] 2.16.8 40.1.144657.3.579.2.462 Unknown [id number] 2.16.8 40.1.408847.3.579.2.462 Unknown [id number] 2.16.8 40.1.358775.3.579.2.462 Unknown [id number] 2.16.8 40.1.906874.3.579.2.462 Unknown [id number] 2.16.8 40.1.369417.3.579.2.462 Unknown [id number] 2.16.8 40.1.179355.3.579.2.462 Unknown [id number] 2.16.8 40.1.249280.3.579.2.462 Unknown [id number] 2.16.8 40.1.878021.3.579.2.462 Unknown [id number] 2.16.8 40.1.675132.3.579.2.462 Unknown [id number] 2.16.8 40.1.799823.3.579.2.462 Unknown [id number] 2.16.8 40.1.177857.3.579.2.462 Unknown [id number] 2.16.8 40.1.735717.3.579.2.462 Unknown [id number] 2.16.8 40.1.044426.3.579.2.462 Unknown [id number] 2.16.8 40.1.782236.3.579.2.462 Social History Date Type Detail Facility Start: 10-11-2017 End: 07-05-2022 Tobacco smoking status NHIS Never smoker [facility] Work Phone: Start: 1960 Sex Assigned At Not on file O [facility] Work Phone: Start: 04-16-2019 End: 07-14-2021 Alcohol intake Current non-drinker of alcohol (finding) [facility] Exposure to SARS-CoV -2 (event) Not sure [facility] Start: 04-13-2017 End: 10-18-2019 Tobacco use and exposure Never used [facility] Start: 09-16-2021 End: 07-05-2022 Tobacco smoking status AZIS Unknown if ever smoked [facility] Start: 01-25-2020 Alone [facility] Start: 1960 Sex Assigned At Female W [facility] Start: 09-05-2024 End: 09-06-2024 Sex Female (finding) [facility] Goals Date Patient Goal Desired Activity /State Functional Status Date Assessment Result Facility 09-28-2021 Functional status Patient Activity Chair [facility] Work Phone: 09-28-2021 Functional status Activity Abili ty With Assist of 2 [facility] Work Phone: 09-28-2021 Functional status Rolling Walker [facility] Work Phone: Mental Status Date Assessment Result Facility 09-28-2021 Cognitive function Voice/Name [place] [facility]: 09-16-2021 Cognitive function Level Of Cons ciousness Awake;Alert;Appropriate;Follow s Commands [facility] Work Phone: Clinical Notes 10-16-2020 to 11-09-2022 Willard Epperson MD - 06/23/2022 11:31 AM ESTPatient InstructionsPatient InstructionsDaniben Epperson MD - 04/09/2021 8:00 AM EDTSWillard shaver MD - 10/29/2020 10:03 AM EDT Note Date & Type Note Facility 11-09-2022 Note Patient Outreach (IN TMMN) BRITNEY PERAZA ([id number]) 1960 F TXT Date Time Provider Department [...] for screening mammogram for breast cancer [Z12.31] Order(s):[facility] SCREENING [[id number]] Order #: [id number] FUTURE Prescriptions as of 11/14/2022 - atenolol [...] Encounter Status:Closed by KODAK, PRODUSER on 11/14/22 [facility] 06-23-2022 History of Present illness Narrative Left voicemail message with patient. Was not sure if she wanted to continue to follow-up in clinic. Would be happy to see her back, even if she is no longer on disease modifying therapy to work on symptomatic management. Provided with the number for the senior front end web developer if she is interested in rescheduling. documented in this encounter [facility] 12-01-2021 Note Patient Outreach (IN TMMN) BRITNEY PERAZA ([id number]) 1960 F TXT Date Time Provider Department [...] for screening mammogram for breast cancer [Z12.31] Order(s):[facility] SCREENING [[id number]] Order #: [id number] FUTURE Prescriptions as of 12/06/2021 - atenolol [...] sclerosis) (HCC) [G35] 01/14/2019 Encounter Status:Closed by [employer], PRODUSER on 12/06/21 [facility] 04-09-2021 Instructions Zahra Pratt RN - [...] the medicines you take, including prescription and mjex-qyp-skyecoo medicines. vitamins, and herbal supplements. How will [...] may report side effects to FDA at 4-441-WVQ-2609. General information about the safe and effective [...] sodium acetate trihydrate, trehalose dihydrate. Manufactured by: [employer], [employer] A Member of the [employer], [address] [place] [address], [place] [address] U.[place]. License No. [id number] For more information, go to www.DxUpClose or call . This Medication Guide has been approved by the U.S. Food and Drug Administration documented in this encounter [facility] 04-09-2021 Instructions Willard Epperson MD - 04/09/2021 8:16 AM EDT Central Schedulin115- [phone] documented in this encounter [facility] 04-09-2021 History of Present illness Narrative Images from the original note were not included. 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 I recommend continuing Vitamin D3 09306 IU once every other daily. Goal levels [...] me in 6 months. Willard Epperson MD [facility] Neurological Physicians Neuroimmunology/ Neuroinfectious Disease ([place], and [place] outpatient clinics) General Neurology (Elise) ([place]) [place] Address: [address] [place] [address], [address] [place] [place] [address] [place] [address] Address [address] [facility], [address] Center [address] [place] [address] Chief Complaint: Neuro-immunology clinic follow up INTERIM HISTORY Britney Peraza is here for follow up. Last was seen 10/23. Accompanied by her sister today. She has her infusion scheduled later this morning. No new symptoms to report, though her sister feels she minimizes worsening gait impairment. We had placed orders for [facility] in [facility]. They had been providing her with [...] Swelling Naproxen Sodium Hives, Itching and Swelling Upkzygowcgzf-Xmz-Myvithcl tachycardia tachycardia Penicillins Hives Sulfa (Sulfonamide Antibiotics) Hives Tetracycline Hives Current Outpatient Medications Medication Sig Dispense Refill acetaminophen (TYLENOL) 500 MG tablet Take 500 mg by mouth every 6 (six) hours as needed for pain. AFLURIA QUAD [id number], PF, syringe ADMINISTERED AT DDM 0 atenolol [...] documentation: 40 minutes. documented in this encounter [facility] 01-08-2021 Miscellaneous Notes Changed pharmacies documented in this encounter [facility] 10-29-2020 History of Present illness Narrative Are we able to fax this order for home health to [facility] in [facility]? Contact is: Toll Free [phone] Also, can we reschedule her Apr visit [...] her regarding this? documented in this encounter [facility] 10-16-2020 History of Present illness Narrative Images from the original note were not included. 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 Goal levels of Vitamin [...] proximity to her next infusion. Follow-up with pr April 2021. Willard Epperson MD [facility] Neurological Physicians Neuroimmunology/ Neuroinfectious Disease ([place], and [place] [facility]) General Neurology ([place]) ([place]) [place] Address: [address] [place] [address], [address] Address [address] [facility], [address] [place] [address] Chief Complaint: Neuro-immunology clinic follow up INTERIM [...] Swelling Naproxen Sodium Hives, Itching and Swelling Fhcfrccudsue-Dfx-Nzfdeero tachycardia tachycardia Penicillins Hives Sulfa (Sulfonamide Antibiotics) Hives Tetracycline Hives Current Outpatient Medications Medication Sig Dispense Refill acetaminophen (TYLENOL) 500 MG tablet Take 500 mg by mouth every 6 (six) hours as needed for pain. AFLURIA QUAD [id number], PF, syringe ADMINISTERED AT DDM 0 atenolol [...] air cells are clear. Nasopharynx is normal. Force Variation Equipment Tender spaces are normal. Orbital contents are normal. [...] with the patient. documented in this encounter [facility] 10-16-2020 Instructions LiangLata RN - [...] Pt voiced understanding. documented in this encounter [facility] 10-16-2020 Instructions Lata Liang RN [...] Pt voiced understanding. documented in this encounter [facility] 10-16-2020 History of Present illness Narrative Labs obtained with insertion of PIV, which will be used for the infusion today. Specimens labeled per policy and taken to the lab in the [facility] for processing. documented in this encounter [facility] 10-16-2020 History of Present illness Narrative Labs obtained with insertion of PIV, which will be used for the infusion today. Specimens labeled per policy and taken to the lab in the [facility] for processing. documented in this encounter [facility] Evaluation note Diagnosis Multiple sclerosis, primary progressive (HCC)- Primary [facility] Multiple sclerosis, primary progressive (HCC)- Primary [facility] Diagnosis Multiple sclerosis, primary progressive (HCC)- Primary Vitamin D deficiency Paresis of lower extremity (HCC) Unspecified paralysis History of gait disorder [facility] Diagnosis Multiple sclerosis, primary progressive (HCC)- Primary [facility] Diagnosis Vitamin D deficiency [facility] Diagnosis Multiple sclerosis, primary progressive (HCC)- Primary Multiple sclerosis (HCC) Multiple sclerosis [facility] Diagnosis Multiple sclerosis, primary progressive (HCC)- Primary Vitamin D deficiency Spasticity Abnormal involuntary movements Ataxia Lack of coordination Cognitive impairment Unspecified persistent mental disorders due to conditions classified elsewhere [facility] Diagnosis Onset Date Resolution Status Acute cystitis acute Complicated urinary tract infection acute Infectious encephalopathy ac isha Severe sepsis acute [facility] Work Phone: Evaluation note* Diagnosis Onset Date Resolution Status Acute respiratory failure with hypoxia acute Complicated urinary tract infection acute COVID-19 acute Debility acute Lactic acidosis acute Sepsis acute [facility] Work Phone: Evaluation note* Diagnosis Onset Date Resolution Status Debility acute Acute respiratory failure with hypoxia resolved Complicated urinary tract infection resolved COVID-19 resolved Lactic acidosis resolved Sepsis resolved [facility] Work Phone: Evaluation note* Diagnosis Encounter for screening mammogram for breast cancer [facility] noteNo assessment information availableWC[facility] Work Phone: Evaluation note* Diagnosis Multiple sclerosis, primary progressive (HCC)- Primary [facility]WC[facility] Work Phone: Hospital Discharge instructionsWC[facility] Work Phone: Hospital Discharge instructionsWC[facility] Work Phone: Hospital Discharge instructionsWC[facility] Work Phone: Reason for referral (narrative)* Diagnostic Procedure Only (Routine) - Pending Review Specialty Diagnoses / Procedures Referred By Contac t Referred To Contact [facility] Diagnoses Encounter for screening mammogram for breast cancer Procedures HUBERT SCREENING SCREENING MAMMOGRAPHY BI 2-VIEW BREAST INC CAD Joan Hughes MD [address] [place] [address] [facility] [address] [place] [address] Referral ID Status Reason Start Date Expiration Date Visits Requested Visits Authorized [id number] Pending Review Auto-Generat ed Referral 12/01/2021 12/31/2022 1 1 [facility] for referral (narrative)No reason for referral information availableWCleveland Clinic [facility] Work Phone: Instructions * Patient Instructions [...] would require purchasing a compounded version from [employer]. One source to purchase this is https://Nanigans.[employer]/product/2-skcyuy-docv-byuepol-mgdvsu-ctr-90-count/ Physical Therapy: 1. Recommend return to PT [...] the medicines you take, including prescription and wbtq-yqh-ydmcpay medicines, vitamins_._and herbal supplements. _ _ _ [...] may report side effects to FDA at 5-167-JKR-1641. General Information about the safe and effective [...] sodium acetate trihydrate, trehalose dihydrate. Manufactured by: [employer] A Member of the [employer], [address] [place] [address] [place]. License No.[id number] For more lnformation, go to www.DxUpClose or_call 2-149-137-38BZ. This Medication Guide has been approved by [...] And Without Contrast Willard Epperson MD [address] [address] Status Reason Specialty Diagnoses / Procedures Referred By Contact Referred To Contact Authorized Specialty Services Required/Patien t's Best Interest Physical Therapy Diagnoses Multiple sclerosis (HCC) Willard Epperson MD [address] [address] Status Reason Specialty Diagnoses / Procedures Referre d By Contact Referred To Contact Closed Radiology Diagnoses Multiple sclerosis (HCC) Procedures MR Brain Without Contrast Willard Epperson MD [address] [facility] Mihir [address] [place] [address] Status Reason Specialty Diagnoses / Procedures Referred By Contact Referred To Contact Closed Specialty Services Required/Patien t's Best Interest Ice Cream Freezer Diagnoses Multiple sclerosis (HCC) Willard Epperson MD [address] [facility] Mihir [address] [place] [address] Dory Velez LISW-S Status Reason Specialty Diagnoses / Procedures Referred By Contact Referred To Contact New Request Radiology Diagnoses Multiple sclerosis, primary progressive (HCC) Procedures MR Thoracic Spine With And Without Contrast Willard Epperson MD [address] [facility] [address] [place] [address] Status Reason Specialty Diagnoses / Procedures Referred By Contact Referred To Contact New Request Radiology Diagnoses Multiple sclerosis, primary progressive (HCC) Procedures MR Cervical Spine With And Without Contrast Willard Epperson MD [facility] [address] [place] [address] Status Reason Specialty Diagnoses / Procedures Referred By Contact Referred To Contact New Request Radiology Diagnoses Multiple sclerosis, primary progressive (HCC) Procedures MR Brain With And Without Contrast Willard Epperson MD [facility] [address] [place] [address] Status Reason Specialty Diagnoses / Procedures Referred By Contact Referred To Contact Authorized Specialty Services Required/Patie nt's Best Interest Home Health Services Diagnoses Multiple sclerosis, primary progressive (HCC) Willard Epperson MD [facility] [address] [place] [address] Specialty Diagnoses / Procedures Referred By Contac t Referred To Contact Ice Cream Freezer Diagnoses Multiple sclerosis, primary progressive ([place] [address] [place] [address] Rd [address] [place] [address] Dory Velez, LITIGATION COUNSEL-S Referral ID Status Reason Start Date Expiration Date V isits Requested Visits Authorized [id number] Closed Specialty Services Required/[place] ent's Best Interest 04/09/2021 04/09/2022 1 1 Advance Directives No Advanced Directives Records FoundDocuments on File Type Date Recorded 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 Advance Directives and Livin g Will 04/12/2019 8:19 AM Documents on File Type Date Recorded 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 Advance Directives and Livin g Will 04/12/2019 8:19 AM Documents on File Type Date Recorded 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 Advance Directives and Livin g Will 10/18/2019 6:47 AM Documents on File Type Date Recorded 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 Advance Directives and Livin g Will 10/18/2019 6:47 AM Documents on File Type Date Recorded 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 Advance Directives and Livin g Will 04/17/2020 6:47 AM Documents on File Type Date Recorded 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 Advance Directives and Livin g Will 04/17/2020 6:47 AM Documents on File Type Date Recorded 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 Advance Directives and Livin g Will 10/16/2020 6:47 AM Documents on File Type Date Recorded 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 Advance Directives and Livin g Will 10/16/2020 6:47 AM Documents on File Type Date Recorded 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 Advance Directives and Livin g Will 04/09/2021 6:47 AM Documents on File Type Date Recorded 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 Advance Directives and Livin g Will 04/09/2021 6:47 AM Advance Directive Response Recorded Date/ Time Living Will Yes September 16, 2021 2:30pm Power of Litigation Counsel Yes September 16 2:30pm Advance Directive Response Recorded Date/ Time Name of Medical Power of Litigation Counsel jacque schwartz September 16, 2021 2:30pm Living Will Yes September 16, 2021 2:30pm Power of Litigation Counsel Yes September 16 2:30pm Advance Directive Response Recorded Date/ Time Living Will Yes September 16, 2021 1:30pm Power of Litigation Counsel Yes September 16 1:30pm Advance Directive Response Recorded Date/ Time Living Will Yes July 05 11:24am Power of Litigation Counsel Yes July 05, 2022 11:24am Advance Directive Response Recorded Date/ Time Living Will Yes July 05 12:24pm Power of Litigation Counsel Yes July 05, 2022 12:24pm History of Present Illness * Jeanne Hilario TELECOMMUNICATOR - 02/13/2017 1:04 PM EDT [phone] order along with face [...] Epperson MD - 04/16/2019 8:02 PM EST [facility] Follow Up Note 04/12/2019 IMPRESSIONS [...] trials and in our experience here at [facility], most infusion related reactions are [...] visit. 3. Please sign up for the Metricly patient portal. [employer] provides assess to your medical record and test results, allows you to communicate with your care providers, and allows you to complete patient questionnaires prior to each clinic visit. 4. When your testing is completed, your MS care team will review all results and contact you if a finding requires follow up before your next visit. Otherwisee, we will discuss your test results kecy-yg-kqbl at your next clinic visit. Many of your testing results, however, can be reviewed online through [employer]iMax. MS Disease Summary Primary Neurological Diagnosis and [...] hours as needed for pain. AFLURIA QUAD [id number], PF, syringe ADMINISTERED AT DDM 0 atenolol [...] Swelling Naproxen Sodium Hives, Itching and Swelling Ypgxowygkkpg-Wly-Ixuhyjwq tachycardia tachycardia Penicillins Hives Sulfa (Sulfonamide Antibiotics) [...] of links to MS educational sources online: [facility] Multiple Sclerosis Center (www.[facility].com/MS) Multiple Sclerosis Association of [place] (www.mymsaa.org) Multiple Sclerosis Foundation (www.msfocus.org) Can do Multiple Sclerosis ( www.mscando.org ) National Multiple Sclerosis Society (www.nationalmssociety.org) Twitter: @[facility] Facebook: [facility] Instagram: [employer] 5. For information on the [facility] MS Center's clinical trial program contact Sari Bolden [facility]. 6. MS Groups take place at [facility] Education and Resource Center at [facility]: [address] [place] [address]. Parking vouchers will be provided. Life with [...] the Monday of the month from 5:30-7pm. Caregiver/Experimental Flight Test Mechanic Support Group: offers opportunities to connect with [...] experienced yoga practitioners. Pre- registration is required: [phone] 7. Education regarding disease modifying therapy discussed [...] Willard Epperson MD Neuroimmunology and Neuroinfectious Disease [facility] Multiple Sclerosis Center at [facility] and [place] Outpatient clinics (Favio fax) [facility] Address: [address] [place] [address], [address] [place] [address] [place] Address [address] [facility], [address] [place] [address] documented in this encounter* Jeanne Hilario CMA - 04/18/2019 8:25 AM EST Faxed [employer] ([phone]) a physical therapy referral along with face sheet and Insurance card to call patient to schedule. documented in this encounter* Willard Epperson MD - 10/18/2019 10:43 AM EDT Telephone Visit Via Phone Call [facility] [address] [facility] NEUROSCIENCE [address] [facility] [phone] Telephone Visit [facility] Group 10/18/2019 Willard Epperson MD Provider Location: [facility] Patient Location Pageant Director: None Patient Location: Patient's Home Patient: Britney [...] there are inherent diagnostic limitations compared to ndfl-jm-ztoj evaluations. We elected toproceed with the telephone visit telemedicine consultation. HPI Today she is currently at the [facility] receiving her infusion. She has been [...] hours as needed for pain. AFLURIA QUAD [id number], PF, SYRINGE ADMINISTERED AT [facility] ATENOLOL (TENORMIN) 25 MG TABLET Take 25 [...] Continue with vitamin D 5000 units daily xrvu-ypq-vphjwii Continue Ampyra 10 mg twice daily and [...] EDT [facility][phone][facility] to call and schedule in home visits [...] her biggest problem. Patient lives alone in [place], [place] and sister lives in [place]. Falls in past 6 months: > 6, [...] the need for help. Pt has a [employer] dical alert system. She is receiving 2 hours of aide support, 2 times per week. Her bathroom was remodeled with a walk-in shower and a chair lift was installed to get pt safely from her garage into the home. It appears that pt would benefit from meals on wheels, as her aide is only allowed to pecan picker groceries, so pt does not have easy access to food/shopping. Jacque lives in [place]. In reviewing past and present in-home supports, [...] Name: Britney Peraza : 1960 MR #: [id number] Other Physicians: Joan Hughes MD (Primary Care Physician) [facility] Follow-up Visit 04/17/2020 [...] me in 3 months. 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 AFLURIA QUAD [id number], PF, syringe ADMINISTERED AT DDM 0 atenolol [...] 5/5 Knee extensors 5/4+ No pronator drift OKKO's slowed in L hand Coordination/ Station & [...] EST Faxed a physical therapy order to [facility] ([phone]) along with face sheet and Insurance card to call and schedule with patient. documented in this encounter* Willard Epperson MD - 09/28/2018 3:49 PM EDT [facility] Multiple Sclerosis Center at [facility] Clinic Follow Up Note 09/28/2018 IMPRESSIONS [...] trials and in our experience here at [facility], most infusion related reactions are [...] visit. 3. Please sign up for the Metricly patient portal. [employer] provides assess to your medical record and test results, allows you to communicate with your care providers, and allows you to complete patient questionnaires prior to each clinic visit. 4. When your testing is completed, your MS care team will review all results and contact you if a finding requires follow up before your next visit. Otherwisee, we will discuss your test results [id number] at your next clinic visit. Many of your testing results, however, can be reviewed online through [employer]. DISEASE SUMMARY Primary Neurological Diagnosis and Date [...] is also noticeable by her sister and [id number] with regards toambulation. There have been no [...] hours as needed for pain. AFLURIA QUAD [id number], PF, syringe ADMINISTERED AT DDM 0 atenolol [...] Swelling Naproxen Sodium Hives, Itching and Swelling Gsemsizoserm-Sop-Csotvryq tachycardia tachycardia Penicillins Hives Sulfa (Sulfonamide Antibiotics) [...] Willard Epperson MD Neuroimmunology and Neuroinfectious Disease [facility] at [facility] and [place] [facility] ([place] fax) [place] Address: [address] [place] [address], [address] Address [facility], [address] [place] [address] documented in this encounter Summary Purpose Family [...] WITH SEPSIS UTI WITH SEPSIS ADMISSION EXAM 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 LABWORK LABWORK Reason for Visit Debility Acute [...] WITH SEPSIS UTI WITH SEPSIS ADMISSION EXAM 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 LABWORK LABWORK LABWORK LAB WORK NEW SYMPTOMS/CONCERN [...] WITH SEPSIS UTI WITH SEPSIS ADMISSION EXAM 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 LABWORK LABWORK LABWORK LAB WORK NEW SYMPTOMS/CONCERN ALTERED MENTAL STATUS 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 LABWORK NEW SYMPTOMS/CONCERNS Reason for Visit Debility Acute respiratory failure with hypoxia Complicated urinary tract infection COVID-19 Lactic acidosis Sepsis Chief Complaint ADMISSION EXAM 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 LABWORK LABWORK LABWORK LAB WORK NEW SYMPTOMS/CONCERN ALTERED MENTAL STATUS 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 LABWORK NEW SYMPTOMS/CONCERNS 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 LABWORK 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 LAB WORK 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 LAB WORK Chief Complaint LABWORK LABWORK LAB WORK NEW SYMPTOMS/CONCERN ALTERED MENTAL STATUS 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 LABWORK NEW SYMPTOMS/CONCERNS 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 LABWORK 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 LAB WORK 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 LAB WORK 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 LABWORK Chief Complaint NEW SYMPTOMS/CONCERN ALTERED MENTAL STATUS 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 LABWORK NEW SYMPTOMS/CONCERNS 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 LABWORK 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 LAB WORK 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 LAB WORK 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 LABWORK LABWORK MONTHLY EXAM Chief Complaint NEW SYMPTOMS/CONCERN S 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 LABWORK 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 LAB WORK 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 LAB WORK 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 LABWORK LABWORK MONTHLY EXAM 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 LABWORK Chief Complaint 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 LABWORK 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 LAB WORK 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 LAB WORK 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 LABWORK LABWORK MONTHLY EXAM LABWORK 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 LABWORK Chief Complaint 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 LAB WOR K 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 LAB WORK 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 LABWORK LABWORK MONTHLY EXAM LABWORK 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 LABWORK 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 LABWORK ACUTE CARE NOTE Chief Complaint 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 LAB WOR K 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 LAB WORK 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 LABWORK LABWORK MONTHLY EXAM LABWORK 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 LABWORK 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 LABWORK 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 LABWORK ACUTE CARE NOTE ACUTE CARE Chief Complaint MONTHLY EXAM LABWORK 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 LABWORK 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 LABWORK 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 LABWORK ACUTE CARE NOTE ACUTE CARE 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 LABWORK 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 LAB WORK 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 LAB WORK 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 LAB WORK ACUTE CARE Chief Complaint LABWORK 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 LABWORK 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 LABWORK 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 LABWORK ACUTE CARE NOTE ACUTE CARE 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 LABWORK 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 LAB WORK 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 LAB WORK 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 LAB WORK 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 LAB WORK ACUTE CARE Chief Complaint LABWORK 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 LABWORK 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 LABWORK 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 LABWORK ACUTE CARE NOTE ACUTE CARE 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 LABWORK 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 LAB WORK 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 LAB WORK 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 LABWORK 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 LABWORK 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 LAB WORK 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 LAB WORK ACUTE CARE Chief Complaint 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 LABWORK 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 LABWORK ACUTE CARE NOTE ACUTE CARE 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 LABWORK 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 LAB WORK 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 LAB WORK 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 LABWORK 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 LABWORK 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 LAB WORK 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 LAB WORK ACUTE CARE 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 LABWORK MONTHLY NOTE 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 LABWORK ACUTE CARE Chief Complaint 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 LABWORK ACUTE CARE NOTE ACUTE CARE 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 LABWORK 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 LAB WORK 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 LAB WORK 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 LABWORK 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 LABWORK 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 LAB WORK 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 LAB WORK ACUTE CARE 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 LABWORK MONTHLY NOTE 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 LABWORK ACUTE CARE 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 LABWORK MONTHLY EXAM Chief Complaint 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 LAB WOR K 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 LABWORK 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 LABWORK 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 LAB WORK 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 LAB WORK ACUTE CARE 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 LABWORK MONTHLY NOTE 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 LABWORK ACUTE CARE 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 LABWORK MONTHLY EXAM 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 LAB WORK 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 LABWORK 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 LABWORK NEW CONCERN Chief Complaint 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 LAB WOR K 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 LABWORK 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 LABWORK 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 LAB WORK 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 LAB WORK ACUTE CARE 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 LABWORK MONTHLY NOTE 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 LABWORK ACUTE CARE 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 LABWORK MONTHLY EXAM 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 LAB WORK 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 LABWORK 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 LABWORK 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 LABWORK NEW CONCERN Chief Complaint 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 LABWORK 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 LABWORK 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 LAB WORK 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 LAB WORK ACUTE CARE 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 LABWORK MONTHLY NOTE 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 LABWORK ACUTE CARE 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 LABWORK MONTHLY EXAM 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 LAB WORK 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 LABWORK 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 LABWORK 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 LABWORK NEW CONCERN 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 LABWORK Chief Complaint 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 LABWORK MONTHLY NOTE 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 LABWORK ACUTE CARE 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 LABWORK MONTHLY EXAM 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 LAB WORK 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 LABWORK 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 LABWORK 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 LABWORK NEW CONCERN 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 LABWORK MONTHLY EXAM 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 LABWORK Chief Complaint MONTHLY NOTE 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 LABWORK ACUTE CARE 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 LABWORK MONTHLY EXAM 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 LAB WORK 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 LABWORK 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 LABWORK 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 LABWORK NEW CONCERN 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 LABWORK MONTHLY EXAM 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 LABWORK 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 LABWORK Chief Complaint 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 LABWORK 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 LABWORK MONTHLY NOTE 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 LABWORK MONTHLY EXAM 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 LABWORK 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 LAB WORK 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 LABWORK MOTNHLY NOTE 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 LABWORK Chief Complaint 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 LABWORK 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 LABWORK MONTHLY NOTE 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 LABWORK MONTHLY EXAM 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 LABWORK 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 LAB WORK 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 LABWORK MOTNHLY NOTE 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 LABWORK 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 LAB WORK Chief Complaint 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 LABWORK MONTHLY EXAM 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 LABWORK 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 LAB WORK 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 LABWORK MOTNHLY NOTE 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 LABWORK MONTHLY EXAM 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 LAB WORK 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 LABWORK LABWORK Chief Complaint MONTHLY EXAM 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 LABWORK 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 LAB WORK 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 LABWORK MOTNHLY NOTE 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 LABWORK MONTHLY EXAM 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 LAB WORK 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 LABWORK LABWORK 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 LAB WORK Chief Complaint 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 LABWORK LABWORK 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 LAB WORK 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 LABWORK 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 LABWORK MONTHLY EXAM MONTHLY NOTE MONTHLY EXAM 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 LAB WORK Chief Complaint MONTHLY NOTE MONTHLY EXAM 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 LAB WORK MONTHLY EXAM - MD 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 LAB WORK Chief Complaint 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 LAB WORK MONTHLY EXAM - MD 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 LAB WORK LABWORK Chief Complaint 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 LAB WORK MONTHLY EXAM - MD 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 LAB WORK MONTHLY NOTE -PA NEW CONCERN 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 LAB WORK LABWORK Chief Complaint 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 LAB WORK MONTHLY EXAM - MD 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 LAB WORK MONTHLY NOTE -PA NEW CONCERN 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 LAB WORK MONTHLY EXAM MD LABWORK 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 LAB WORK Chief Complaint 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 LAB WOR K MONTHLY NOTE -PA NEW CONCERN 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 LAB WORK MONTHLY EXAM MD LABWORK 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 LAB WORK 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 LAB WORK 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 LAB WORK Chief Complaint NEW CONCERN 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 LAB WORK MONTHLY EXAM MD LABWORK 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 LAB WORK 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 LAB WORK NEW CONCERN 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 LAB WORK MONTHLY EXAM Chief Complaint Admit Date MONTHLY NOTE June 07, 2024 4: 12pm 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 LAB WORK June 11, 2024 5:30am NEW CONCERN June 18, 2024 1 :49pm 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 LAB WORK July 09, 2024 5:00am MONTHLY EXAM July 09, 2024 5 :27pm 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 LAB WORK August 06, 2024 4: 00am 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 LAB WORK August 19, 2024 1 2:05pm Chief Complaint Admit Date MONTHLY NOTE June 07, 2024 4: 12pm 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 LAB WORK June 11, 2024 5:30am NEW CONCERN June 18, 2024 1 :49pm 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 LAB WORK July 09, 2024 5:00am MONTHLY EXAM July 09, 2024 5 :27pm NEW CONCERN August 05, 2024 4:07 pm PENITENTIARY LAB WORK August 06, 2024 4: 00am PENITENTIARY LAB WORK August 19, 2024 1 2:05pm NEW CONCERN August 19, 2024 4:4 9pm Additional Source Comments Addendum Note - Willard Epperson MD - 01/23/2018 11:17 AM EDTQuick Note - Elif Augustin, TECHNOLOGIST - 10/18/2019 7:15 AM EDT Miscellaneous Notes (unrecog nized section and content) Addended by: WILLARD EPPERSON on: 01/23/2018 11:17 AM Modules accepted: Orders in this encounter This technologist ([id number]) and ([id number]) wore surgical masks/gloves during MRI exam. Patient wore surgical mask. documented in this encounter Reason for Visit (unrecogniz ed section and content) Reason Comments Multiple Sclerosis Ocrevus Specialty Diagnoses / Procedures Referred By Contac t Referred To Contact Infusion Therapy Diagnoses Multiple sclerosis, primary progressive (HCC) Procedures MI INJECTION, OCRELIZUMAB, 1 MG Willard Epperson MD [address] [place] [address] [facility]fusion [address] [place] [address] Referral ID Status Reason Start Date Expiration Date V isits Requested Visits Authorized [id number] Pending Review 03/31/2021 05/30/2021 1 1 Status Reason Specialty Diagnoses / Procedures Referre d By Contact Referred To Contact Closed Radiology Diagnoses Multiple sclerosis (HCC) Procedures MR Brain With And Without Contrast Willard Epperson MD [address] [facility] [address] [place] [address] Reason Comments Multiple Sclerosis 6 month Ocrevus Status Reason Specialty Diagnoses / Procedures Referred By Contact Referred To Contact Closed Infusion Therapy Diagnoses Multiple sclerosis Procedures MI INJECTION, OCRELIZUMAB, 1 MG Willard Epperson MD [address] [place] [address] [facility] [address] [place] [address] Reason Comments Multiple Sclerosis Status Reason Specialty Diagnoses / Procedures Referred By Contact Referred To Contact Closed Infusion Therapy Diagnoses Multiple sclerosis, primary progressive (HCC) Procedures MI INJECTION, OCRELIZUMAB, 1 MG Willard Epperson MD [address] [place] [address] [facility] [address] [place] [address] Status Reason Specialty Diagnoses / Procedures Referre d By Contact Referred To Contact Closed Radiology Diagnoses Multiple sclerosis (HCC) Procedures MR Brain Without Contrast Willard Epperson MD [address] [place] [address] Status Reason Specialty Diagnoses / Procedures Referred By Contact Referred To Contact Authorized Infusion Therapy Diagnoses Multiple sclerosis Ocrevus 6 months Procedures MI INJECTION, OCRELIZUMAB, 1 MG CHEMO Willard Epperson MD [facility] [address] [place] [address] [facility]fusion [address] [place] [address] Status Reason Specialty Diagnoses / Procedures Referred By Contact Referred To Contact Canceled Specialty Services Required/[facility] Health Services Diagnoses Multiple sclerosis, primary progressive (HCC) Willard Epperson MD [address] [place] [address] [place] [address] Status Reason Specialty Diagnoses / Procedures Referred By Contact Referred To Contact Authorized Infusion Therapy Diagnoses Multiple sclerosis, primary progressive (HCC) Procedures MI INJECTION, OCRELIZUMAB, 1 MG Willard Epperson MD [address] [place] [address] [facility]fusion [address] [place] [address] Reason Comments Multiple Sclerosis Ocrevus 6mo, 2hr Status Reason Specialty Diagnoses / Procedures Referred By Contact Referred To Contact Closed Infusion Therapy Diagnoses Multiple sclerosis Ocrevus 6 months Procedures MI INJECTION, OCRELIZUMAB, 1 MG Willard [place] MD [address] [facility] [address] [place] [address] [facility] [address] [place] [address] Reason Onset Date Comments Medication Refill 01/08/2021 Reason Comments Multiple Sclerosis Care Teams (unrecognized sec tion and content) Contract Negotiator Relationship Specialty Start Date End Date Joan Hughes MD [address] [place] [id number] PCP - General Family Medicine 09/28/18 Contract Negotiator Relationship Specialty Start Date End Date Joan Hughes MD [address] [place] [id number] PCP - General Family Medicine 09/28/18 Contract Negotiator Relationship Specialty Start Date End Date Joan Hughes MD [address] [place] [address] [place] [id number] PCP - General Family Medicine 09/28/18 Contract Negotiator Relationship Specialty Start Date End Date Joan Hughes MD [address] [place] [id number] PCP - General Family Medicine 09/28/18 Contract Negotiator Relationship Specialty Start Date End Date Joan Hughes MD [address] [place] [id number] PCP - General Family Practice 05/11/16 Team Status: Active Member Role Status Dates Dr. Joan Hughes MD Family Provider Active Dr. Joan Hughes MD Primary Care Provider Active Team Status: Inactive Member Role Status Dates Dr. Joan Hughes MD Primary Care Provider Active Britney Worthington NP GENERAL HARDWARE SALESPERSON-C Attending Provider Active Team Status: Inactive Member [...] Active Asad Jamison MD Attending Provider Active Contract Negotiator Relationship Specialty Start Date End Date Joan Hughes MD [address] [facility] [address] [place] [address] PCP - General Family Medicine 09/28/18 Team [...] End: June 07, 2024 Britney Worthington NP, GENERAL HARDWARE SALESPERSON-C Attending Provider Active Start: June 07, 2024 [...] End: June 18, 2024 Britney Worthington NP, GENERAL HARDWARE SALESPERSON-C Attending Provider Active Start: June 18, 2024 [...] End: August 05, 2024 Britney Worthington NP GENERAL HARDWARE SALESPERSON-C Attending Provider Active Start: August 05, 2024 [...] End: August 19, 2024 Britney Worthington NP GENERAL HARDWARE SALESPERSON-C Attending Provider Active Start: August 19, 2024 End: August 19, 2024 INFORMATION SOURCE (unrecogn ized section and content) DATE CREATED AUTHOR 04/13/2021 [facility] DATE CREATED AUTHOR AUTHOR'S ORGANIZ ATION 01/15/2022 [facility] DATE CREATED AUTHOR AUTHOR'S ORGANIZ ATION 11/16/2022 [facility] DATE CREATED AUTHOR AUTHOR'S ORGANIZ ATION 10/31/2024 [facility] Goals (unrecognized section and content) Goals [...] or prosecute any alcohol or drug abuse patient.[facility] FOR RECORDS PERTAINING TO PATIENTS [...] BE BASED ON THE PRIMARY CLINICAL RECORDS. [employer] [facility]. provides no warranty or guarantee of the accuracy or completeness of information in this document.
[2024-11-05 08:27] LABS: Absolute Lymphocyte Count 0.88 X10^3/uL (0.83-4.51); Basophil# 0.12 X10^3/uL; Basophil% 1.1 % (0-1); Eosinophil# 0.29 X10^3/uL; Eosinophils% 2.7 % (0-5); Hematocrit 38.8 % (37-47); Hemoglobin 11.7 g/dL (12.0-15.0); Lymphocyte # 0.88 X10^3/ul (0.83-4.51); Lymphocyte % 8.1 % (19-41); Mean Corp Hgb Conc 30.2 g/dL (32-36); Mean Corpuscular Hgb 24.5 pg (27.0-32.0); Mean Corpuscular Volume 81.2 fL (81-99); Mean Platelet Vol. 9.1 fl (6.2-12.0); Monocyte# 1.37 X10^3/uL; Monocyte% 12.5 % (0-10); NRBC Flagged by Analyzer 0 % (0-5); Neutrophil # 8.03 X10^3/uL (2.7-7.7); Neutrophil % 73.5 % (47-70); Platelet Count 488 K/mm3 (150-450); RBC Distribution Width CV 16.5 % (11.6-14.6); Red Blood Count 4.78 M/mm3 (4.2-5.4); White Blood Count 10.9 K/mm3 (4.4-11.0)
[2024-11-05 09:20] LABS: ALB/GLOB Ratio 0.9 RATIO (0.9-2.4); AST(SGOT) 23 U/L (<=31); Alanine Aminotransfer ALT/SGPT 45 U/L (<=34); Albumin, Serum 3.3 g/dL (3.4-4.8); Alkaline Phosphatase 95 U/L (35-104); Anion Gap 15 (5-15); BUN 38 mg/dL (4-19); BUN/Creat Ratio 29.5 RATIO (10-20); Calcium,Total 9.8 mg/dL (7.6-11.0); Carbon Dioxide 18.5 mmol/L (21.0-32.0); Chloride 103 mmol/L (98-108); Creatinine, Serum 1.28 mg/dL (0.70-1.20); EST Glomerular Filtration Rate 46 (>60); Globulin 3.8 g/dL (2.2-4.2); Glucose 189 mg/dL (70-99); Potassium 4.3 mmol/L (3.3-5.1); Protein, Total 7.1 g/dL (5.9-8.4); Sodium Level 136 mmol/L (133-145); Total Bilirubin 0.21 mg/dL (0.00-1.30)
== END ==
LOC: OLS.WHLEAS 05:00
PROVIDERS: PCP Family Medicine; Visit Provider Nurse Practitioner Adult Health
DX: E78.5 Hyperlipidemia, unspecified (principal); E11.9 Type 2 diabetes mellitus without complications; I10 Essential (primary) hypertension
CPT/HCPCS: 36415; 80053; 85025

== ENCOUNTER → 2024-11-07 05:00 | Outpatient (REF) | payer MEDICARE, MEDICAID, SELFPAY ==
[2024-11-07 08:42] LABS: Anion Gap 14 (5-15); BUN 44 mg/dL (4-19); BUN/Creat Ratio 31.2 RATIO (10-20); Calcium,Total 9.8 mg/dL (7.6-11.0); Carbon Dioxide 20.8 mmol/L (21.0-32.0); Chloride 102 mmol/L (98-108); Creatinine, Serum 1.41 mg/dL (0.70-1.20); EST Glomerular Filtration Rate 41 (>60); Glucose 151 mg/dL (70-99); Potassium 3.9 mmol/L (3.3-5.1); Sodium Level 138 mmol/L (133-145)
== END ==
LOC: OLS.WHLEAS 05:00
PROVIDERS: PCP Family Medicine; Visit Provider Internal Medicine
DX: E11.22 Type 2 diabetes mellitus with diabetic chronic kidney disease (principal); I12.9 Hypertensive chronic kidney disease with stage 1 through stage 4 chronic kidney disease, or unspecified chronic kidney disease; N18.9 Chronic kidney disease, unspecified; E78.5 Hyperlipidemia, unspecified; D75.839 Thrombocytosis, unspecified; J96.11 Chronic respiratory failure with hypoxia; G35 Multiple sclerosis
CPT/HCPCS: 36415; 80048

== ENCOUNTER → 2024-11-15 05:30 | Outpatient (REF) | payer MEDICARE, MEDICAID, SELFPAY ==
[2024-11-15 09:27] LABS: Color, Urine Yellow (Yellow); Glucose, Dipstick Normal (Normal); Ketone-Dipstick Negative (Negative); Leukocyte Esterase-Dipstick 500 /ul (Negative); Nitrite-Dipstick Negative (Negative); Occult Blood-Urine 250 /ul (Negative); Protein-Dipstick 500 mg/dl (Negative); Urine Bilirubin Dipstick Negative (Negative); Urine Clarity Turbid (Clear); Urine Urobilinogen Normal (Normal)
== END ==
LOC: OLS.WHLEAS 05:30
PROVIDERS: PCP Family Medicine; Visit Provider Internal Medicine
DX: R10.9 Unspecified abdominal pain (principal)
CPT/HCPCS: 81002; 87077; 87086; 87088; 87186

== ENCOUNTER → 2024-12-04 05:00 | Outpatient (REF) | payer MEDICARE, SELFPAY ==
--- OUTSIDE RECORDS SUMMARY | 2024-12-04 05:24 | XMS RPT_ITS | CCD ---
Author Organization [facility] Care Team Providers Care Policy Advisor Name Role Phone No, Physician Unavailable Unavailable Unavailable Unavailable Joan Wallace Primary Care Provider No, Physician Primary Care Provider Joan Antunez Primary Care Provider Joan Hughes MD Primary Care Provider Joan Hughes MD Primary Care Provider JOAN HUGHES Primary Care Unavailable WILLARD EPPERSON Attending Unavailabl e WILLARD EPPERSON Attending Unavailabl e JOAN HUGHES Primary Care Unavailable JOAN HUGHES Primary Care Unavailable WILLARD EPPERSON Attending Unavailabl e WILLARD EPPERSON Admitting Unavailabl e WILLARD EPPERSON Attending Unavailabl e JOAN HUGHES Primary Care Unavailable WILLARD EPPERSON Referring Unavailabl JOAN Salmeron Primary Care Unavailable WILLARD EPPERSON Admitting Unavailabl e JOAN HUGHES Primary Care Unavailable WILLARD EPPERSON Admitting Unavailabl e WILLARD EPPERSON Attending Unavailabl e JOAN HUGHES Primary Care Unavailable WILLARD EPPERSON Referring Unavailabl e WILLARD EPPERSON Admitting Unavailabl e WILLARD EPPERSON Attending Unavailabl e JOAN HUGHES Primary Care Unavailable WILLARD EPPERSON Admitting Unavailabl e WILLARD EPPERSON Referring Unavailabl e WILLARD EPPERSON Admitting Unavailabl JOAN Salmeron Primary Care Unavailable Dr. Joan Hughes Primary Care Provider Dr. Erick Jin Emergency Provider Dr. Faheem Lamb Admit Provider Dr. Faheem Lamb Attending Provider Dr. Faheem Lamb Other Provider Dr. Maile Apodaca Attending Provider Dr. Maile Apodaca Other Provider Dr. Maile Apodaca Referring Provider Dr. Jose Cruz Wright Attending Provider Dr. Jose Cruz Wright Other Provider Dr. Alan Terry Other Provider aJylen ANIMAL ANATOMIST, ANIMAL ANATOMIST-C Meera Other Provider Dr. Rina Diaz Other Provider Dr. Alan Terry Attending Provider Dr. Rina Diaz Attending Provider Dr. Bijan Swain Attending Provider Dr. Bijan Swain Other Provider Dr. Anil Abreu Attending Provider Dr. Alek Ray Referring Provider Elin ANIMAL ANATOMIST, ANIMAL ANATOMIST-C Britney Attending Provider Joan Sher MD Primary Care Provider JOAN HUGHES Primary Care Unavailable WILLARD EPPERSON Attending JOAN Antunez Primary Care Unavailable WILLARD EPPERSON Attending Dr. Joan Antunez Primary Care Provider Dr. Joan Hughes Primary Care Provider Elin ANIMAL ANATOMIST, ANIMAL ANATOMIST-C Britney Attending Provider Dr. Joan Sher Primary Care Provider Elin ANIMAL ANATOMIST, ANIMAL ANATOMIST-C Britney Attending Provider Dr. Joan Sher Primary Care Provider Elin ANIMAL ANATOMIST, ANIMAL ANATOMIST-C Britney Attending Provider Dr. Joan Sher Primary Care Provider Elin ANIMAL ANATOMIST, ANIMAL ANATOMIST-C Britney Attending Provider Dr. Joan Sher Primary Care Provider Tickgray ANIMAL ANATOMIST, ANIMAL ANATOMIST-C Britney Attending Provider Joan Sher MD Primary Care Provider Dr. Breanne Ruiz Attending Provider [phone] Dr. Joan Hughes Primary Care Provider Elin ANIMAL ANATOMIST, ANIMAL ANATOMIST-C Britney Attending Provider Dr. Breanne Hensley Attending Provider [phone] Dr. Joan Hughes Primary Care Provider Elin ANIMAL ANATOMIST, ANIMAL ANATOMIST-C Britney Attending Provider Dr. Joan Sher Primary Care Provider Elin ANIMAL ANATOMIST, ANIMAL ANATOMIST-C Britney Attending Provider Dr. Breanne Hensley Attending Provider [phone] Dr. Joan Hughes Primary Care Provider Elin ANIMAL ANATOMIST, ANIMAL ANATOMIST-C Britney Attending Provider Dr. Joan Sher Primary Care Provider Tickgray ANIMAL ANATOMIST, ANIMAL ANATOMIST-C Britney Attending Provider MD Breanne Robbins Attending Provider Dr. Joan Sher Primary Care Provider Tickgray ANIMAL ANATOMIST, ANIMAL ANATOMIST-C Britney Attending Provider Dr. Breanne Ruiz Attending Provider [phone] Dr. Joan Hughes Primary Care Provider Tickgray ANIMAL ANATOMIST, ANIMAL ANATOMIST-C Britney Attending Provider OLGA Santacruz Attending Provider [phone] FRANCIS Romeo Attending Provider [phone] Dr. Joan Hughes Primary Care Provider Tickgray ANIMAL ANATOMIST, ANIMAL ANATOMIST-C Britney Attending Provider Dr. Breanne Ruiz Attending Provider [phone] OLGA Santacruz Attending Provider [phone] FRANCIS Romeoily Attending Provider [phone] Dr. Joan Hughes Primary Care Provider Dr. Breanne Ruiz Attending Provider [phone] Dr. Joan Hughes Primary Care Provider Elin ANIMAL ANATOMIST, ANIMAL ANATOMIST-C Britney Attending Provider Dr. Joan Hughes MD Primary Care Provider Elin ANIMAL ANATOMIST-C, Britney Attending Provider Breanne Ruiz MD Attending Provider Unavaildivya Ruiz MD, Breanne Referring Provider UnavailDr. Breanne Cole MD Attending Provider [phone] Dr. Joan Hughes MD Primary Care Provider Elin ANIMAL ANATOMIST-CBritney Attending Provider Breanne Ruiz MD Attending Provider Unavaila keara Ruiz MD, Abbieongchetan Referring Provider UnavailDr. Breanne Cole MD Attending Provider [phone] Elin ANIMAL ANATOMIST-CBritney Attending Provider [phone] Oleghe OLS, Efewongbe Attending Unavailabl e ElderJoan billingsley Primary Care Unavailable Oleghe OLS, Efewongbe Attending Unavailabl e ElderbroJoan hall Primary Care Unavailable Oleghe OLS, Efewongbe Attending Unavailabl e ElderbroJoan hall Primary Care Unavailable Oleghe OLS, Efewongbe Attending Unavailabl e ElderbrockJoan Primary Care Unavailable Oleghe OLS, Efewongbe Attending Unavailabl e ElderbrockJoan Primary Care Unavailable Oleghe OLS, Efewongbe Attending Unavailabl e ElderbrockJoan Primary Care Unavailable Oleghe OLS, Efewongbe Attending Unavailabl e ElderbrockJoan Primary Care Unavailable Oleghe OLS, Efewongbe Attending Unavailabl e ElderbrockJoan Primary Care Unavailable Oleghe OLS, Efewongbe Attending Unavailabl e ElderbrockJoan Primary Care Unavailable Oleghe OLS, Efewongbe Attending Unavailabl e ElderbroJoan hall Primary Care Unavailable Oleghe OLS, Efewongbe Attending Unavailabl e Elderbrock, Joan Primary Care Unavailable Tickton OLS, Britney Attending Unavailable Elderbrock, Joan Primary Care Unavailable Elderbrock, Joan Primary Care Unavailable Tickton OLS, Britney Attending Unavailable Oleghe OLS, Efewongbe Attending Unavailabl [...] Care Unavailable Elderbrock, Joan Primary Care Unavailable [place]ton ANIMAL ANATOMIST, Britney Attending Unavailable Oleghe OLS, Efewongbe Referring Unavailabl e Oleghe OLS, Efewongbe Attending Unavailabl e Elderbrock, Joan Primary Care Unavailable Oleghe OLS, Efewongbe Attending Unavailabl e Elderbrock, Joan Primary Care Unavailable Oleghe OLS, Efewongbe Attending Unavailabl e Elderbrock, Joan Primary Care Unavailable [place] ANIMAL ANATOMIST, Britney Attending Unavailable Elderbrock, Joan Primary Care Unavailable Oleghe OLS, Efewongbe Referring Unavailabl e Oleghe OLS, Efewongbe Attending Unavailabl e Elderbrock, Joan Primary Care Unavailable Elderbrock, Joan Primary Care Unavailable [place] ANIMAL ANATOMIST, Britney Attending Unavailable Elderbrock, Joan Primary Care Unavailable Oleghe, Efewongbe Attending Unavailable Elderbrock, Joan Primary Care Unavailable [place] ANIMAL ANATOMIST, Britney Attending Unavailable Elderbrock, Joan Primary Care Unavailable [place] ANIMAL ANATOMIST, Britney Attending Unavailable [place] ANIMAL ANATOMIST, Britney Attending Unavailable Elderbrock, Joan Primary Care Unavailable [place] ANIMAL ANATOMIST, Britney Attending Unavailable Elderbrock, Joan Primary Care Unavailable Elderbrock, Joan Primary Care Unavailable Oleghe, Efewongbe Attending Unavailable Elderbrock, Joan Primary Care Unavailable Poornima Romeo Attending Unavailable Oleghe, Efewongbe Attending Unavailable Elderbrock, Joan Primary Care Unavailable Elderbrock, Joan Primary Care Unavailable [place] ANIMAL ANATOMIST, Britney Attending Unavailable Elderbrock, Jaon Primary Care Unavailable [place]ton ANIMAL ANATOMIST, Britney Attending Unavailable Breanne Fishman Attending Joan Antunez Primary Care Unavailable Allergies Allergy Classification Reported Allergen(s) Allergy Type Date of Onset Reaction(s) Facility Aspirin / Caffeine / Orphenadrine (11 sources) Aspirin / Caffeine / Orphenadrine Drug Allergy 5 [facility] NSAIDs (20 sources) Ibuprofen Drug Allergy 5 Swelling, Hives, Itching [facility] Penicillins (antibiotic) (11 sources) Penicillins Drug Allergy 5 [facility] Sulfonamides (antibiotic) (11 sources) Sulfonamides (Antibiotic) Drug Allergy 6 [facility] Tetracyclines (antibiotic) (11 sources) Tetracycline Drug Allergy 5 [facility] (20 sources) aspirin / caffeine / orphenadrine; Translations: [ORPHENADRINE- A-CAFFEINE] Propensity to adverse reactions to drug 5 [facility] Work Phone: (20 sources) ibuprofen; Translations: [IBUPROFEN] Propensity to adverse reactions to drug 8 Swelling [facility] Work Phone: (20 sources) naproxen; Translations: [NAPROXEN SODIUM] Propensity to adverse reactions to drug 5 Hives, Itching, Swelling [facility] Work Phone: (20 sources) Penicillins; Translations: [PENICILLINS] Propensity to adverse reactions to drug 5 [facility] Work Phone: (20 sources) Sulfonamides (Antibiotic); Translations: [SULFA (SULFONAMIDE ANTIBIOTICS)] Propensity to adverse reactions to drug 6 [facility] Work Phone: (20 sources) tetracycline; Translations: [TETRACYCLINE] Propensity to adverse reactions to drug 5 [facility] Work Phone: (6 sources) Penicillins Propensity to adverse reactions to drug 5 [facility] (8 sources) Sulfonamides (Antibiotic) Propensity to adverse reactions to drug 6 [facility] (20 sources) Naproxen Drug Allergy 1 Rash [facility] (20 sources) tiZANidine Drug Allergy 9 Other: See Comments [facility] (2 sources) Penicillins Propensity to adverse reactions 5 Hives [facility] (1 source) Naproxen Drug Allergy 1 [facility] (1 source) Penicillins Drug allergy (disorder) 1 [facility] (1 source) Sulfonamides (Antibiotic) Drug allergy (disorder) 1 [facility] (1 source) tiZANidine Drug Allergy 1 [facility] Medications Current Medications Medication Drug Class(es) [...] 0 04/09/2009 Active take 1 tablet by niall every six hours as needed for pain [...] Active Start: 01-23-2018 take 1 tablet by [facility] twice daily dalfampridine 10 mg Tb12 [...] solid 25 mg 25 mg, Oral, Once, [facility] 05/04/17 at 0900, For 1 dose, Administer 30 minutes prior to Ocrelizumab. Given 05/04/2017 08:53 EST 25 mg Start: 04-13-2017 End: 04-13-2017 take 25 mg by mouth once diphenhydrAMINE (BENADRYL) o ral solid 25 mg 25 mg, Oral, Once, [facility] 04/13/17 at 1200, For 1 [...] (NS) 25 mL/hr, Intravenous, Continuous, Starting [facility] 05/04/17 at 0930 Rate/Dose Verify 05/04/2017 11:00 EST [...] [Type 2 diabetes mellitus without complications] Onset: 09-24-2024 Chronic Disorders of lipid metabolism (2 sources) Hyperlipidemia, unspecified; Translations: [Hyperlipidemia, unspecified] Onset: 11-08-2024 Chronic Diverticulosis and diverticulitis (1 source) Diverticulosis of colon; Translations: [Diverticulosis of large intestine without perforation or abscess without bleeding] Onset: 04-18-2008 04-18-2008 Chronic Essential hypertension (20 sources) Hypertensive disorder; Translations: [Essential (primary) hypertension] Onset: 05-17-2016 05-17-2016 Chronic Fluid and electrolyte disorders (20 sources) Lactic acidosis; Translations: [Acidosis] Onset: 07-17-2024 Episodic Inflammatory diseases of female pelvic organs (1 source) Vaginitis, vulvitis and vulvovaginitis in diseases classified elsewhere; Translations: [Vaginitis, vulvitis and vulvovaginitis in diseases classified elsewhere] Onset: 11-15-2024 Episodic Malaise and fatigue (20 sources) Fatigue; Translations: [Asthenia] Episodic Mood disorders (20 sources) Depressive disorder; Translations: [Depression] 09-17-2021 Chronic Multiple sclerosis (20 sources) Primary progressive multiple sclerosis; Translations: [Multiple sclerosis] Onset: 06-23-2016 10-16-2016 Chronic Nutritional deficiencies (13 sources) Vitamin D deficiency; Translations: [Vitamin D deficiency, unspecified] Onset: 10-19-2020 Chronic Other circulatory disease (1 source) Orthostatic hypotension; Translations: [Orthostasis] Episodic Other connective tissue disease (2 sources) Trochanteric bursitis, right hip; Translations: [Trochanteric bursitis, right hip] Onset: 07-01-2024 Episodic Other connective tissue disease (1 source) [...] Translations: [Chronic respiratory failure with hypoxia] Onset: 11-08-2024 Chronic Respiratory failure; insufficiency; arrest (adult) (20 sources) Acute respiratory failure; Translations: [Acute respiratory failure with hypoxia] Episodic Septicemia (except in labor) (20 sources) Sepsis; Translations: [Sepsis, unspecified organism] Episodic Unclassified (1 source) Patient encounter status; Translations: [Therapeutic drug monitoring] Unclassified (2 sources) Thrombocytosis, unspecified; Translations: [Thrombocytosis, unspecified] Onset: 09-06-2024 [...] Test Name Value Interpretation Reference Range Facility Bilirubin Test strip Ql (U)O rdered By: Breanne Ruiz on 11-15-2024 Bilirubin Ql (U) Negative Negative [facility] Ketones Test strip Ql (U)Ord ered By: Breanne Ruiz on 11-15-2024 Ketones Ql (U) Negative Negative [facility] Nitrite Test strip Ql (U)Ord ered By: Breanne Ruiz on 11-15-2024 Nitrite Ql (U) Negative Negative [facility] Protein Test strip Ql (U)Ord ered By: Breanne Ruiz on 11-15-2024 Protein Ql (U) 500 mg/dl High Negative [facility] Urine clarityOrdered By: Prashant Ruiz on 11-15-2024 Clarity (U) Turbid Clear [facility] Urine color determinationOrd ered By: Breanne Ruiz on 11-15-2024 Color (U) Yellow Yellow [facility] Urine glucose detectionOrder ed By: Breanne Ruiz on 11-15-2024 Glucose Ql (U) Normal mg/dl Normal [facility] Urine leukocyte esterase det ection by dipstickOrdered By: Breanne Ruiz on 11-15-2024 Leukocyte esterase Test strip Ql (U) 500 /ul High Negative [facility] Urine pHOrdered By: Bhupendra Ruiz on 11-15-2024 pH (U) 6.0 [pH] 5.0 - 8.0 [facility] Urine specific gravity measu rementOrdered By: Breanne Ruiz on 11-15-2024 Specific gravity (U) [Rel density] 1.020 1.002-1.030 [facility] Urine urobilinogen measureme ntOrdered By: Breanne Ruiz on 11-15-2024 Urobilinogen Ql (U) Normal mg/dl Normal [facility] Anion gap in Serum or Plasma Ordered By: Breanne Ruiz on 11-07-2024 Anion gap [Moles/Vol] 14 mmol/L 5-15 [facility] BUN/creatinine ratioOrdered By: Breanne Ruiz on 11-07-2024 Urea nitrogen/Creatinine [Mass ratio] 31.2 mg/mg High 10-20 [facility] Carbon dioxide, total [Moles /volume] in Central venous bloodOrdered By: Breanne Ruiz on 11-07-2024 CO2 [Moles/Vol] 20.8 mmol/L Low 21.0-32.0 [facility] Chloride assayOrdered By: Elio Ruiz on 11-07-2024 Chloride [Moles/Vol] 102 mmol/L 98-108 [facility] Glomerular filtration rate ( GFR) estimation/1.73 sq m using serum, plasma, or whole bOrdered By: Breanne Ruiz on 11-07-2024 GFR/1.73 sq M.predicted among non-blacks MDRD (S/P/Bld) [Vol rate/Area] 41 mL/min/{1.73_m2} Low >60 [facility] Comment on above: mL/min/1.73m2 CKD-EP I Creatinine Equation (2020) Potassium measurement (mass/ volume)Ordered By: Breanne Ruiz on 11-07-2024 Potassium (Unsp spec) [Mass/Vol] 3.9 mmol/L 3.3-5.1 [facility] Serum creatinine measurement (mass/volume)Ordered By: Eliovannessa Ruiz on 11-07-2024 Creatinine [Mass/Vol] 1.41 mg/dL High 0.70-1.20 [facility] Serum glucose measurement (m ass/volume)Ordered By: Eliovannessa Ruiz on 11-07-2024 Glucose [Mass/Vol] 151 mg/dL High 70-99 [facility] Serum or plasma calcium jj urement (mass/volume)Ordered By: adalbertolalitachetan Kirklandmichaelbeverly on 11-07-2024 Calcium [Mass/Vol] 9.8 mg/dL 7.6-11.0 [facility] Serum or plasma urea nitroge n measurement (mass/volume)Ordered By: Breanne Ruiz on 11-07-2024 Urea nitrogen [Mass/Vol] 44 mg/dL High 4-19 [facility] Sodium levelOrdered By: Abbie tracy Sara on 11-07-2024 Sodium [Moles/Vol] 138 mmol/L 133-145 [facility] Absolute lymphocyte countOrd ered By: Britney Worthington on 11-05-2024 Lymphocytes Auto (Unsp spec) [#/Vol] 0.88 10*3/uL 0.83-4.51 [facility] Absolute neutrophil countOrd ered By: Britney Worthington on 11-05-2024 Neutrophils (Bld) [#/Vol] 8.0 10*3/uL High 2.0-7.7 [facility] Anion gap in Serum or Plasma Ordered By: Britney Worthington on 11-05-2024 Anion gap [Moles/Vol] 15 mmol/L 5-15 [facility] Automated lymphocyte count a s percentage of total leukocytesOrdered By: Britney Worthington on 11-05-2024 Lymphocytes/100 WBC Auto (Unsp spec) 8.1 % Low 19-41 [facility] BUN/creatinine ratioOrdered By: Britney Worthington on 11-05-2024 Urea nitrogen/Creatinine [Mass ratio] 29.5 mg/mg High 10-20 [facility] Basophil percentageOrdered B y: Brintey Worthington on 11-05-2024 Basophils/100 WBC (Bld) 1.1 % High 0-1 [facility] Bilirubin, totalOrdered By: Britney Worthington on 11-05-2024 Bilirubin [Mass/Vol] 0.21 mg/dL 0.00-1.30 [facility] Carbon dioxide, total [Moles /volume] in Central venous bloodOrdered By: Britney Worthington on 11-05-2024 CO2 [Moles/Vol] 18.5 mmol/L Low 21.0-32.0 [facility] Chloride assayOrdered By: Lawrence Worthington on 11-05-2024 Chloride [Moles/Vol] 103 mmol/L 98-108 [facility] Eosinophil percentageOrdered By: Britney Worthington on 11-05-2024 Eosinophils/100 WBC (Bld) 2.7 % 0-5 [facility] Erythrocyte distribution wid th ratioOrdered By: Britney Worthington on 11-05-2024 Erythrocyte distribution width (RBC) [Ratio] 16.5 % High 11.6-14.6 [facility] Erythrocyte distribution wid th standard deviationOrdered By: Britney Worthington on 11-05-2024 Erythrocyte distribution width (RBC) [Ratio] 49.0 fl High 35.1-43.9 [facility] Glomerular filtration rate ( GFR) estimation/1.73 sq m using serum, plasma, or whole bOrdered By: Britney Worthington on 11-05-2024 GFR/1.73 sq M.predicted among non-blacks MDRD (S/P/Bld) [Vol rate/Area] 46 mL/min/{1.73_m2} Low >60 [facility] Comment on above: mL/min/1.73m2 CKD-EP I Creatinine Equation (2020) Hematocrit Auto (Bld) [Volum e fraction]Ordered By: Britney Worthington on 11-05-2024 Hematocrit (Bld) [Volume fraction] 38.8 % 37-47 [facility] Hemoglobin measurementOrdere d By: Britney Worthington on 11-05-2024 Hemoglobin (Bld) [Mass/Vol] 11.7 g/dL Low 12.0-15.0 [facility] Immature granulocytes/100 WB C Auto (Bld)Ordered By: Britney Worthington on 11-05-2024 Immature granulocytes/100 WBC (Bld) 2.100 % High 0.0-0.9 [facility] Comment on above: IG% - Immature Granu locytes (promyelocytes, myelocytes and metamyelocytes) > 1% indicates that a LEFT SHIFT is Present. Laboratory - Chemistry and C hemistry - challengeOrdered By: Britney Worthington on 11-05-2024 AST [Catalytic activity/Vol] 23 U/L <32 [facility] MCV (mean corpuscular volume ) determinationOrdered By: Britney Worthington on 11-05-2024 MCV (RBC) [Entitic vol] 81.2 fL 81-99 [facility] Mean corpuscular hemoglobin (MCH) determinationOrdered By: Britney Worthington on 11-05-2024 MCH (RBC) [Entitic mass] 24.5 pg Low 27.0-32.0 [facility] Mean corpuscular hemoglobin concentration (MCHC) determinationOrdered By: Britney Worthington on 11-05-2024 MCHC (RBC) [Mass/Vol] 30.2 g/dL Low 32-36 [facility] Mean platelet volume determi nationOrdered By: Britney Worthington on 11-05-2024 Platelet mean volume (Bld) [Entitic vol] 9.1 fL 6.2-12.0 [facility] Monocyte percentageOrdered B y: Britney Worthington on 11-05-2024 Monocytes/100 WBC (Bld) 12.5 % High 0-10 [facility] Neutrophil percentageOrdered By: Britney Worthington on 11-05-2024 Neutrophils/100 WBC (Bld) 73.5 % High 47-70 [facility] Nucleated red blood cell per centageOrdered By: Britney Worthington on 11-05-2024 Nucleated RBC/100 WBC (Bld) [Ratio] 0 % 0-5 [facility] Platelet countOrdered By: Lawrence Worthington on 11-05-2024 Platelets (Bld) [#/Vol] 488 10*3/uL High 150-450 [facility] Potassium measurement (mass/ volume)Ordered By: Britney Worthington on 11-05-2024 Potassium (Unsp spec) [Mass/Vol] 4.3 mmol/L 3.3-5.1 [facility] RBC Auto (Bld) [#/Vol]Ordere d By: Britney Worthington on 11-05-2024 RBC (Bld) [#/Vol] 4.78 10*6/uL 4.2-5.4 [facility] Serum creatinine measurement (mass/volume)Ordered By: Britney Worthington on 11-05-2024 Creatinine [Mass/Vol] 1.28 mg/dL High 0.70-1.20 [facility] Serum globulin measurementOr dered By: Britney Worthington on 11-05-2024 Globulin (S) [Mass/Vol] 3.8 g/dL 2.2-4.2 [facility] Serum glucose measurement (m ass/volume)Ordered By: Britney Worthington on 11-05-2024 Glucose [Mass/Vol] 189 mg/dL High 70-99 [facility] Serum or plasma alanine juárez otransferase (ALT) measurementOrdered By: Britney Worthington on 11-05-2024 ALT [Catalytic activity/Vol] 45 U/L High <35 [facility] Serum or plasma albumin jj urement (mass/volume)Ordered By: Britney Worthington on 11-05-2024 Albumin [Mass/Vol] 3.3 g/dL Low 3.4-4.8 [facility] Serum or plasma albumin/glob ulin mass ratioOrdered By: Britney Worthington on 11-05-2024 Albumin/Globulin [Mass ratio] 0.9 {ratio} 0.9-2.4 [facility] Serum or plasma alkaline sofi sphatase measurementOrdered By: Britney Worthington on 11-05-2024 ALP [Catalytic activity/Vol] 95 U/L 35-104 [facility] Serum or plasma calcium jj urement (mass/volume)Ordered By: Britney Worthington on 11-05-2024 Calcium [Mass/Vol] 9.8 mg/dL 7.6-11.0 [facility] Serum or plasma urea nitroge n measurement (mass/volume)Ordered By: Britney Worthington on 11-05-2024 Urea nitrogen [Mass/Vol] 38 mg/dL High 4-19 [facility] Sodium levelOrdered By: Nancy Worthington on 11-05-2024 Sodium [Moles/Vol] 136 mmol/L 133-145 [facility] Total proteinOrdered By: Phillip Worthington on 11-05-2024 Protein [Mass/Vol] 7.1 g/dL 5.9-8.4 [facility] White blood cell (WBC) count Ordered By: Britney Worthington on 11-05-2024 WBC (Bld) [#/Vol] 10.9 10*3/uL 4.4-11.0 [facility] Gram stainOrdered By: Ana Lilia Worthington on 10-11-2024 Microscopic observation Gram stain Nom (Unsp spec) [facility] Calculated very low density lipoprotein (VLDL) cholesterol measurementOrdered By: Breanne Ruiz on 10-08-2024 Calculated very low density lipoprotein (VLDL) cholesterol measurement 52 mg/dL High 5-40 [facility] LDL calc ser/plasOrdered By: Breanne Ruiz on 10-08-2024 Cholesterol in LDL [Mass/Vol] 44 mg/dL [facility] Comment on above: Ruboxntjcp=[id number] m g/dL & Higher Lrtz=811 mg/dL or greater Screening total cholesterol/ high density lipoprotein (HDL) cholesterol ratioOrdered By: Breanne Ruiz on 10-08-2024 Cholesterol.total/Cholest dipak in HDL [Mass ratio] 4.16 {ratio} [facility] Serum or plasma cholesterol in HDL measurement (mass/volume)Ordered By: Breanne Ruiz on 10-08-2024 Cholesterol in HDL [Mass/Vol] 30 mg/dL Low >40 [facility] Comment on above: National Cholesterol Education Program (NCEP) guidelines:<40 mg/dL: Low HDL-cholesterol (major risk factor for CHD)>= 60 mg/dL: High HDL-cholesterol (negative risk factor for CHD)HDL-cholesterol is affected by a number of factors, e.g. smoking, exercise, hormones, sex and age. Serum or plasma cholesterol measurement (mass/volume)Ordered By: Breanne Ruiz on 10-08-2024 Cholesterol [Mass/Vol] 126 mg/dL <201 [facility] Comment on above: Cholesterol level, D esirable <200 mg/dLBorderline high cholesterol 200-239 mg/dLHigh cholesterol >=240 mg/dLRecommendations of the NCEP Adult Treatment Panel for the following risk-cutoff thresholds for the [place] population. Triglycerides measurementOrd ered By: Breanne Ruiz on 10-08-2024 Triglyceride [Mass/Vol] 261 mg/dL High <199 [facility] Comment on above: The drugs N-Acetylcy steine and Metamizole may falsely depress this assay. Normal range: <150 mg/dLBorderline High: 150-199 mg/dLHigh: 200-499 mg/dLVery High: >500 mg/dL Anion gap in Serum or Plasma Ordered By: Breanne Ruiz on 09-04-2024 Anion gap [Moles/Vol] 15 mmol/L 5-15 [facility] BUN/creatinine ratioOrdered By: Breanne Ruiz on 09-04-2024 Urea nitrogen/Creatinine [Mass ratio] 30.0 mg/mg High 10-20 [facility] Carbon dioxide, total [Moles /volume] in Central venous bloodOrdered By: Breanne Ruiz on 09-04-2024 CO2 [Moles/Vol] 20.5 mmol/L Low 21.0-32.0 [facility] Chloride assayOrdered By: Elio Ruiz on 09-04-2024 Chloride [Moles/Vol] 102 mmol/L 98-108 [facility] GFR/1.73 sq M.predicted cinda g non-blacks MDRD (S/P/Bld) [Vol rate/Area]Ordered By: Breanne Ruiz on 09-04-2024 Estimated GFR (MDRD) Non-Af Amer 68 >60 [facility] Comment on above: mL/min/1.73m2 CKD-EP I Creatinine Equation (2020) Glomerular filtration rate ( GFR) estimation/1.73 sq m using serum, plasma, or whole bOrdered By: Breanne Ruiz on 09-04-2024 GFR/1.73 sq M.predicted among non-blacks MDRD (S/P/Bld) [Vol rate/Area] 68 mL/min/{1.73_m2} >60 [facility] Comment on above: mL/min/1.73m2 CKD-EP I Creatinine Equation (2020) Potassium (Unsp spec) [Mass/ Vol]Ordered By: Breanne Ruiz on 09-04-2024 Potassium [Moles/Vol] 4.1 mmol/L 3.3-5.1 [facility] Comment on above: Hemolysis present, R esults could be affected. Potassium measurement (mass/ volume)Ordered By: Breanne Ruiz on 09-04-2024 Potassium (Unsp spec) [Mass/Vol] 4.1 mmol/L 3.3-5.1 [facility] Comment on above: Hemolysis present, R esults could be affected. Serum creatinine measurement (mass/volume)Ordered By: Breanne Ruiz on 09-04-2024 Creatinine [Mass/Vol] 0.93 mg/dL 0.70-1.20 [facility] Serum glucose measurement (m ass/volume)Ordered By: Breanne Ruiz on 09-04-2024 Glucose [Mass/Vol] 137 mg/dL High 70-99 [facility] Serum or plasma calcium jj urement (mass/volume)Ordered By: Breanne Ruiz on 09-04-2024 Calcium [Mass/Vol] 10.3 mg/dL 7.6-11.0 [facility] Serum or plasma urea nitroge n measurement (mass/volume)Ordered By: Breanne Ruiz on 09-04-2024 Urea nitrogen [Mass/Vol] 28 mg/dL High 4-19 [facility] Sodium levelOrdered By: Abbie Ruiz on 09-04-2024 Sodium [Moles/Vol] 137 mmol/L 133-145 [facility] Hemoglobin A1c percentageOrd ered By: Breanne Ruiz on 09-03-2024 HbA1c (Bld) [Mass fraction] 7.9 % >5.7 [facility] Genital cultureOrdered By: Beverly Ruiz on 08-19-2024 Genital Culture Staphylococcus aureus Abnormal [facility] Gram stainOrdered By: Hank Ruiz on 08-19-2024 Microscopic observation Gram stain Nom (Unsp spec) [facility] Absolute lymphocyte countOrd ered By: Abbielalitachetan Kirklandmichaelbeverly on 08-06-2024 Lymphocytes Auto (Unsp spec) [#/Vol] 1.08 10*3/uL 0.83-4.51 [facility] Absolute neutrophil countOrd ered By: Breanne Kirklandmichaelbeverly on 08-06-2024 Neutrophils (Bld) [#/Vol] 7.0 10*3/uL 2.0-7.7 [facility] Anion gap in Serum or Plasma Ordered By: Breanne Ruiz on 08-06-2024 Anion gap [Moles/Vol] 13 mmol/L 5-15 [facility] Automated lymphocyte count a s percentage of total leukocytesOrdered By: Breanne Ruiz on 08-06-2024 Lymphocytes/100 WBC Auto (Unsp spec) 11.0 % Low 19-41 [facility] BUN/creatinine ratioOrdered By: Breanne Ruiz on 08-06-2024 Urea nitrogen/Creatinine [Mass ratio] 27.6 mg/mg High 10-20 [facility] Basophil percentageOrdered B y: Breanne Ruiz on 08-06-2024 Basophils/100 WBC (Bld) 0.7 % 0-1 [facility] Bilirubin, totalOrdered By: Breanne Ruiz on 08-06-2024 Bilirubin [Mass/Vol] 0.21 mg/dL 0.00-1.30 [facility] Carbon dioxide, total [Moles /volume] in Central venous bloodOrdered By: Breanne Ruiz on 08-06-2024 CO2 [Moles/Vol] 22.7 mmol/L 21.0-32.0 [facility] Chloride assayOrdered By: Elio adalbertotracy Ruiz on 08-06-2024 Chloride [Moles/Vol] 101 mmol/L 98-108 [facility] Eosinophil percentageOrdered By: Breanne Kirklandmichaelbeverly on 08-06-2024 Eosinophils/100 WBC (Bld) 3.8 % 0-5 [facility] Erythrocyte distribution wid th (RBC) [Ratio]Ordered By: Breanne Ruiz on 08-06-2024 Erythrocyte distribution width (RBC) [Entitic vol] 46.3 fL High 35.1-43.9 [facility] Erythrocyte distribution wid th ratioOrdered By: Breanne Ruiz on 08-06-2024 Erythrocyte distribution width (RBC) [Ratio] 15.6 % High 11.6-14.6 [facility] Erythrocyte distribution wid th standard deviationOrdered By: Breanne Ruiz on 08-06-2024 Erythrocyte distribution width (RBC) [Ratio] 46.3 fl High 35.1-43.9 [facility] GFR/1.73 sq M.predicted cinda g non-blacks MDRD (S/P/Bld) [Vol rate/Area]Ordered By: Breanne Ruiz on 08-06-2024 Estimated GFR (MDRD) Non-Af Amer 66 >60 [facility] Comment on above: mL/min/1.73m2 CKD-EP I Creatinine Equation (2020) Glomerular filtration rate ( GFR) estimation/1.73 sq m using serum, plasma, or whole bOrdered By: Breanne Ruiz on 08-06-2024 GFR/1.73 sq M.predicted among non-blacks MDRD (S/P/Bld) [Vol rate/Area] 66 mL/min/{1.73_m2} >60 [facility] Comment on above: mL/min/1.73m2 CKD-EP I Creatinine Equation (2020) Hematocrit Auto (Bld) [Volum e fraction]Ordered By: Breanne Ruiz 08-06-2024 Hematocrit (Bld) [Volume fraction] 41.6 % 37-47 [facility] Hemoglobin measurementOrdere d By: Breanne Ruiz on 08-06-2024 Hemoglobin (Bld) [Mass/Vol] 12.5 g/dL 12.0-15.0 [facility] Immature granulocytes/100 WB C Auto (Bld)Ordered By: Breanne Ruiz 08-06-2024 Immature granulocytes/100 WBC (Bld) 1.000 % High 0.0-0.9 [facility] Comment on above: IG% - Immature Granu locytes (promyelocytes, myelocytes and metamyelocytes) > 1% indicates that a LEFT SHIFT is Present. Laboratory - Chemistry and C hemistry - challengeOrdered By: Breanne Ruiz on 08-06-2024 AST [Catalytic activity/Vol] 16 U/L <32 [facility] Lymphocytes Auto (Unsp spec) [#/Vol]Ordered By: Breanne Ruiz on 08-06-2024 Lymphocytes (Bld) [#/Vol] 1.08 10*3/uL 0.83-4.5 1 [facility] Lymphocytes/100 WBC Auto (Un sp spec)Ordered By: Breanne Ruiz on 08-06-2024 Lymphocytes/100 WBC (Bld) 11.0 % Low 19-41 [facility] MCV (mean corpuscular volume ) determinationOrdered By: Breanne Ruiz on 08-06-2024 MCV (RBC) [Entitic vol] 80.9 fL Low 81-99 [facility] Mean corpuscular hemoglobin (MCH) determinationOrdered By: vannessa Ruiz on 08-06-2024 MCH (RBC) [Entitic mass] 24.3 pg Low 27.0-32.0 [facility] Mean corpuscular hemoglobin concentration (MCHC) determinationOrdered By: Breanne Ruiz on 08-06-2024 MCHC (RBC) [Mass/Vol] 30.0 g/dL Low 32-36 [facility] Mean platelet volume determi nationOrdered By: Braenne Ruiz on 08-06-2024 Platelet mean volume (Bld) [Entitic vol] 8.8 fL 6.2-12.0 [facility] Monocyte percentageOrdered B y: Breanne Ruiz on 08-06-2024 Monocytes/100 WBC (Bld) 12.5 % High 0-10 [facility] Neutrophil percentageOrdered By: vannessa Ruiz on 08-06-2024 Neutrophils/100 WBC (Bld) 71.0 % High 47-70 [facility] Nucleated red blood cell per centageOrdered By: Breanne Ruiz on 08-06-2024 Nucleated RBC/100 WBC (Bld) [Ratio] 0 % 0-5 [facility] Platelet countOrdered By: Elio Ruiz on 08-06-2024 Platelets (Bld) [#/Vol] 452 10*3/uL High 150-450 [facility] Potassium (Unsp spec) [Mass/ Vol]Ordered By: Breanne Ruiz on 08-06-2024 Potassium [Moles/Vol] 3.9 mmol/L 3.3-5.1 [facility] Potassium measurement (mass/ volume)Ordered By: Breanne Ruiz on 08-06-2024 Potassium (Unsp spec) [Mass/Vol] 3.9 mmol/L 3.3-5.1 [facility] RBC Auto (Bld) [#/Vol]Ordere d By: Breanne Ruiz on 08-06-2024 RBC (Bld) [#/Vol] 5.14 10*6/uL 4.2-5.4 [facility] Serum creatinine measurement (mass/volume)Ordered By: Breanne Ruiz on 08-06-2024 Creatinine [Mass/Vol] 0.96 mg/dL 0.70-1.20 [facility] Serum globulin measurementOr dered By: Breanne Ruiz on 08-06-2024 Globulin (S) [Mass/Vol] 3.8 g/dL 2.2-4.2 [facility] Serum glucose measurement (m ass/volume)Ordered By: Breanne Ruiz on 08-06-2024 Glucose [Mass/Vol] 188 mg/dL High 70-99 [facility] Serum or plasma alanine juárez otransferase (ALT) measurementOrdered By: Breanne Ruiz on 08-06-2024 ALT [Catalytic activity/Vol] 10 U/L <35 [facility] Serum or plasma albumin jj urement (mass/volume)Ordered By: Breanne Ruiz on 08-06-2024 Albumin [Mass/Vol] 3.3 g/dL Low 3.4-4.8 [facility] Serum or plasma albumin/glob ulin mass ratioOrdered By: Breanne Ruiz on 08-06-2024 Albumin/Globulin [Mass ratio] 0.9 {ratio} 0.9-2.4 [facility] Serum or plasma alkaline sofi sphatase measurementOrdered By: Breanne Ruiz on 08-06-2024 ALP [Catalytic activity/Vol] 80 U/L 35-104 [facility] Serum or plasma calcium jj urement (mass/volume)Ordered By: Breanne Ruiz on 08-06-2024 Calcium [Mass/Vol] 10.1 mg/dL 7.6-11.0 [facility] Serum or plasma urea nitroge n measurement (mass/volume)Ordered By: Breanne Ruiz on 08-06-2024 Urea nitrogen [Mass/Vol] 26 mg/dL High 4-19 [facility] Sodium levelOrdered By: Abbie tracy Sara on 08-06-2024 Sodium [Moles/Vol] 137 mmol/L 133-145 [facility] Total proteinOrdered By: Prashant raphaelchetan Ruiz on 08-06-2024 Protein [Mass/Vol] 7.1 g/dL 5.9-8.4 [facility] White blood cell (WBC) count Ordered By: Breanne Ruiz on 08-06-2024 WBC (Bld) [#/Vol] 9.8 10*3/uL 4.4-11.0 [facility] Bilirubin Test strip Ql (U)O rdered By: Breanne Ruiz on 08-05-2024 Bilirubin Ql (U) Negative Negative [facility] Epithelial cells.squamous LM Ql (Urine sed)Ordered By: Breanne Ruiz on 08-05-2024 Epithelial cells.squamous LM.HPF (Urine sed) [#/Area] 0 /[HPF] 5-10 [facility] Glucose Ql (U)Ordered By: Elio adalbertotracy Ruiz on 08-05-2024 Glucose (U) [Mass/Vol] 50 mg/dL High Normal [facility] Ketones Test strip Ql (U)Ord ered By: Breanne Ruiz on 08-05-2024 Ketones Ql (U) Negative Negative [facility] Microscopic analysis of urin e for red blood cells (RBC)Ordered By: Breanne Ruiz on 08-05-2024 Microscopic analysis of urine for red blood cells (RBC) 0-5 SEEN /hpf 0-5 [facility] Urine RBC 0-5 SEEN /hpf 0-5 [facility] Mucus LM Ql (Urine sed)Order ed By: Breanne Ruiz on 08-05-2024 Mucus Ql (Urine sed) 0 SEEN /hpf [facility] Nitrite Test strip Ql (U)Ord ered By: Breanne Ruiz on 08-05-2024 Nitrite Ql (U) Negative Negative [facility] Protein Test strip Ql (U)Ord ered By: Breanne Ruiz on 08-05-2024 Protein Ql (U) 500 mg/dl High Negative [facility] Squamous epithelial cells de tection in urine sediment by light microscopyOrdered By: Breanne Ruiz on 08-05-2024 Epithelial cells.squamous LM Ql (Urine sed) 0-5 SEEN /hpf 5-10 [facility] Urine blood detectionOrdered By: Breanne Ruiz on 08-05-2024 Urine Occult Blood 250 /ul High Negative [facility] Urine clarityOrdered By: Prashant Ruiz on 08-05-2024 Clarity (U) Turbid Clear [facility] Urine color determinationOrd ered By: Breanne Ruiz on 08-05-2024 Color (U) Straw Yellow [facility] Urine cultureOrdered By: Prashant Ruiz on 08-05-2024 Bacteria identified Cx Nom (U) Alpha Hemolytic Streptococcus Abnormal [facility] Bacteria identified Cx Nom (U) Klebsiella pneumoniae sp pneum Abnormal [facility] Urine glucose detectionOrder ed By: Breanne Ruiz on 08-05-2024 Glucose Ql (U) 50 mg/dl High Normal [facility] Urine leukocyte esterase det ection by dipstickOrdered By: Breanne Ruiz on 08-05-2024 Leukocyte esterase Test strip Ql (U) 500 /ul High Negative [facility] Urine pHOrdered By: Bhupendra Ruiz on 08-05-2024 pH (U) 6.0 [pH] 5.0 - 8.0 [facility] Urine sediment bacteria coun t by microscopy (number/high power field)Ordered By: Breanne Ruiz on 08-05-2024 Bacteria LM.HPF (Urine sed) [#/Area] 3 /[HPF] None Seen [facility] Urine specific gravity measu rementOrdered By: Breanne Ruiz on 08-05-2024 Specific gravity (U) [Rel density] 1.020 1.002-1.030 [facility] Urine urobilinogen measureme ntOrdered By: Breanne Ruiz on 08-05-2024 Urobilinogen Ql (U) Normal mg/dl Normal [facility] Urobilinogen Ql (U)Ordered B y: Breanne Ruiz on 08-05-2024 Urine Urobilinogen Normal mg/dl Normal [facility] White blood cell countOrdere d By: Breanne Ruiz on 08-05-2024 Urine WBC >100 SEEN /hpf 0-5 [facility] White blood cell count >100 SEEN /hpf 0-5 [facility] High density lipoprotein (HD L) measurementOrdered By: Breanne Ruiz on 07-09-2024 Cholesterol in HDL [Mass/Vol] 38 mg/dL Low >40 [facility] Comment on above: The drugs N-Acetylcy steine and Metamizole may falsely depress this assay. Reference Range HDL <40 mg/dL Low HDL Cholesterol HDL >or= 60 mg/dL High HDL Cholesterol Low density lipoprotein (LDL ) cholesterol measurementOrdered By: Breanne Ruiz on 07-09-2024 Cholesterol in LDL [Mass/Vol] 41 mg/dL 0-130 [facility] Serum or plasma cholesterol measurement (mass/volume)Ordered By: Breanne Ruiz on 07-09-2024 Cholesterol [Mass/Vol] 143 mg/dL <200 [facility] Comment on above: <200 mg/dL Desirable 200-240 mg/dL Borderline >240 mg/dL High Risk Triglycerides measurementOrd ered By: Breanne Ruiz on 07-09-2024 Triglyceride [Mass/Vol] 321 mg/dL High <199 [facility] Comment on above: The drugs N-Acetylcy steine and Metamizole may falsely depress this assay.Serum Triglycerides Reference Interval Normal <150 mg/dL Borderline high 150 - 199 mg/dL High 200 - 499 mg/dL Very High > or = 500 mg/dL Very low density lipoprotein (VLDL) cholesterol measurementOrdered By: Rufinochetan Kirklandmichaelbeverly on 07-09-2024 VLDL Cholesterol 64 mg/dL High 5-40 [facility] Hemoglobin A1c percentageOrd ered By: Breanne Ruiz on 06-11-2024 HbA1c (Bld) [Mass fraction] 7.2 % High 3.8-5.6 [facility] Comment on above: Normal < 5.7 % Predi abetic 5.7 - 6.4 % Diabetic >or= 6.5 % Please note range changes. Whole blood hemoglobin A1c/t otal hemoglobin ratio (mass fraction)Ordered By: Elioadalbertolalitachetan Ruiz on 09-05-2023 HbA1c (Bld) [Mass fraction] 6.7 % 3.8-5.6 [facility] Comment on above: Normal < 5.7 % Predi abetic 5.7 - 6.4 % Diabetic >or= 6.5 % Please note range changes. Basophil percentageOrdered B y: Elioadalbertolalitachetan Ruiz on 08-10-2023 Potassium [Moles/Vol] 4.0 mmol/L 3.5-5.1 [facility] Comment on above: Slight Hemolysis, Re sult may be falsely increased. Absolute lymphocyte countOrd ered By: Elioadalbertolalitachetan Kirklandmichaelbeverly on 08-08-2023 Lymphocytes Auto (Unsp spec) [#/Vol] 1.44 10*3/uL 0.83-4.51 [facility] Automated lymphocyte count a s percentage of total leukocytesOrdered By: Breanne Ruiz on 08-08-2023 Lymphocytes/100 WBC Auto (Unsp spec) 12.7 % 19-41 [facility] Basophil percentageOrdered B y: Rufinochetan Kirklandhussain on 08-08-2023 Basophils/100 WBC (Bld) 1.1 % 0-1 [facility] Bilirubin [Mass/Vol] 0.30 mg/dL 0.20-1.00 [facility] Comment on above: For patients on eltr ombopag therapy, use of Dimension [place] TBIL is not recommended. Chloride [Moles/Vol] 107 mmol/L 98-107 [facility] Eosinophils/100 WBC (Bld) 3.1 % 0-5 [facility] Glucose [Mass/Vol] 153 mg/dL 74-106 [facility] Comment on above: Fasting Glucose resu lt greater than or equal to 126 mg/dL suggests DIABETES MELLITUS per A.D.A. criteria. Hemoglobin (Bld) [Mass/Vol] 14.3 g/dL 12.0-15.0 [facility] Monocytes/100 WBC (Bld) 10.4 % 0-10 [facility] Neutrophils (Bld) [#/Vol] 8.1 10*3/uL 2.0-7.7 [facility] Neutrophils/100 WBC (Bld) 71.8 % 47-70 [facility] Potassium [Moles/Vol] 3.4 mmol/L 3.5-5.1 [facility] Protein [Mass/Vol] 6.9 g/dL 6.4-8.2 [facility] Sodium [Moles/Vol] 141 mmol/L 136-145 [facility] WBC (Bld) [#/Vol] 11.3 10*3/uL 4.4-11.0 [facility] Determination of erythrocyte mean corpuscular volume (MCV)Ordered By: Breanne Ruiz on 08-08-2023 MCV (RBC) [Entitic vol] 88.6 fL 81-99 [facility] Erythrocyte distribution wid th ratioOrdered By: [facility] [place] [place] Isaelbeverly on 08-08-2023 Erythrocyte distribution width (RBC) [Ratio] 14.8 % 11.6-14.6 [facility] Erythrocyte distribution wid th standard deviationOrdered By: Abbiewittenchetan Kirklandbeverly on 08-08-2023 Erythrocyte distribution width (RBC) [Entitic vol] 47.9 fL 35.1-43.9 [facility] Hematocrit Auto (Bld) [Volum e fraction]Ordered By: Breanne Ruiz on 08-08-2023 Hematocrit (Bld) [Volume fraction] 46.7 % 37-47 [facility] Immature granulocytes/100 WB C Auto (Bld)Ordered By: Abbiewittenchetan Ruiz on 08-08-2023 Immature granulocytes/100 WBC (Bld) 0.900 % 0.0-0.9 [facility] Comment on above: IG% - Immature Granu locytes (promyelocytes, myelocytes and metamyelocytes) > 1% indicates that a LEFT SHIFT is Present. Laboratory - Chemistry and C hemistry - challengeOrdered By: Breanne Ruiz on 08-08-2023 Albumin/Globulin [Mass ratio] 0.9 {ratio} 0.9-2.4 [facility] ALP [Catalytic activity/Vol] 93 U/L 45-117 [facility] ALT [Catalytic activity/Vol] 36 U/L 13-56 [facility] CO2 [Moles/Vol] 26.0 mmol/L 21.0-32.0 [facility] Globulin (S) [Mass/Vol] 3.7 g/dL 2.2-4.2 [facility] Urea nitrogen/Creatinine [Mass ratio] 28.0 mg/mg 10-20 [facility] Laboratory - Hematology and Cell countsOrdered By: Breanne Ruiz on 08-08-2023 MCH (RBC) [Entitic mass] 27.1 pg 27.0-32.0 [facility] MCHC (RBC) [Mass/Vol] 30.6 g/dL 32-36 [facility] Nucleated RBC/100 WBC (Bld) [Ratio] 0 % 0-5 [facility] Platelet mean volume (Bld) [Entitic vol] 9.3 fL 6.2-12.0 [facility] Platelets (Bld) [#/Vol] 535 10*3/uL 150-450 [facility] No Panel InformationOrdered By: Breanne Ruiz on 08-08-2023 Estimated GFR (MDRD) Amer 105 mL/min >60 [facility] Comment on above: GFR Calc Estimated GFR (MDRD) Non-Af Amer 87 mL/min >60 [facility] Comment on above: Non- GFR Calc RBC Auto (Bld) [#/Vol]Ordere d By: Breanne Ruiz on 08-08-2023 RBC (Bld) [#/Vol] 5.27 10*6/uL 4.2-5.4 [facility] Serum or plasma calcium jj urement (mass/volume)Ordered By: Breanne Ruiz on 08-08-2023 Calcium [Mass/Vol] 10.0 mg/dL 8.5-10.1 [facility] Serum or plasma creatinine m easurement (mass/volume)Ordered By: Breanne Ruiz on 08-08-2023 Creatinine [Mass/Vol] 0.71 mg/dL 0.55-1.02 [facility] Comment on above: The validity of the calculated GFR & GFRAA in patients over 70 years has not been determined. Clinical correlation is essential. Serum or plasma urea nitroge n measurement (mass/volume)Ordered By: Breanne Ruiz on 08-08-2023 Urea nitrogen [Mass/Vol] 20 mg/dL 7-18 [facility] Thin prep Papanicolaou smear with manual screeningOrdered By: Breanne Ruiz on 08-08-2023 Thin prep Papanicolaou smear with manual screening 3.2 g/dL 3.2-5.0 [facility] Thin prep Papanicolaou smear with manual screening 31 U/L 15-37 [facility] Thin prep Papanicolaou smear with manual screening 8 5-15 [facility] Basophil percentageOrdered B y: Breanne Ruiz on 07-17-2023 Chloride [Moles/Vol] 109 mmol/L 98-107 [facility] Glucose [Mass/Vol] 150 mg/dL 74-106 [facility] Comment on above: Fasting Glucose resu lt greater than or equal to 126 mg/dL suggests DIABETES MELLITUS per A.D.A. criteria. Potassium [Moles/Vol] 3.8 mmol/L 3.5-5.1 [facility] Sodium [Moles/Vol] 143 mmol/L 136-145 [facility] Laboratory - Chemistry and C hemistry - challengeOrdered By: Breanne Ruiz on 07-17-2023 CO2 [Moles/Vol] 24.0 mmol/L 21.0-32.0 [facility] Urea nitrogen/Creatinine [Mass ratio] 31.3 mg/mg 10-20 [facility] No Panel InformationOrdered By: Breanne Ruiz on 07-17-2023 Estimated GFR (MDRD) Amer 114 mL/min >60 [facility] Comment on above: GFR Calc Estimated GFR (MDRD) Non-Af Amer 94 mL/min >60 [facility] Comment on above: Non- GFR Calc Serum or plasma calcium jj urement (mass/volume)Ordered By: Breanne Ruiz on 07-17-2023 Calcium [Mass/Vol] 9.6 mg/dL 8.5-10.1 [facility] Serum or plasma creatinine m easurement (mass/volume)Ordered By: Breanne Ruiz on 07-17-2023 Creatinine [Mass/Vol] 0.67 mg/dL 0.55-1.02 [facility] Comment on above: The validity of the calculated GFR & GFRAA in patients over 70 years has not been determined. Clinical correlation is essential. Serum or plasma urea nitroge n measurement (mass/volume)Ordered By: Breanne Ruiz on 07-17-2023 Urea nitrogen [Mass/Vol] 21 mg/dL 7-18 [facility] Thin prep Papanicolaou smear with manual screeningOrdered By: Breanne Ruiz on 07-17-2023 Thin prep Papanicolaou smear with manual screening 10 5-15 [facility] Basophil percentageOrdered B y: Beranne Ruiz on 07-03-2023 Chloride [Moles/Vol] 109 mmol/L 98-107 [facility] Glucose [Mass/Vol] 156 mg/dL 74-106 [facility] Comment on above: Fasting Glucose resu lt greater than or equal to 126 mg/dL suggests DIABETES MELLITUS per A.D.A. criteria. Potassium [Moles/Vol] 3.5 mmol/L 3.5-5.1 [facility] Comment on above: Slight Hemolysis, Re sult may be falsely increased. Sodium [Moles/Vol] 141 mmol/L 136-145 [facility] Laboratory - Chemistry and C hemistry - challengeOrdered By: Breanne Ruiz on 07-03-2023 CO2 [Moles/Vol] 25.0 mmol/L 21.0-32.0 [facility] Urea nitrogen/Creatinine [Mass ratio] 29.4 mg/mg 10-20 [facility] No Panel InformationOrdered By: Breanne Ruiz on 07-03-2023 Estimated GFR (MDRD) Amer 111 mL/min >60 [facility] Comment on above: GFR Calc Estimated GFR (MDRD) Non-Af Amer 92 mL/min >60 [facility] Comment on above: Non- GFR Calc Serum or plasma calcium jj urement (mass/volume)Ordered By: Breanne Ruiz on 07-03-2023 Calcium [Mass/Vol] 9.8 mg/dL 8.5-10.1 [facility] Serum or plasma creatinine m easurement (mass/volume)Ordered By: Breanne Ruiz on 07-03-2023 Creatinine [Mass/Vol] 0.68 mg/dL 0.55-1.02 [facility] Comment on above: The validity of the calculated GFR & GFRAA in patients over 70 years has not been determined. Clinical correlation is essential. Serum or plasma urea nitroge n measurement (mass/volume)Ordered By: Breanne Ruiz on 07-03-2023 Urea nitrogen [Mass/Vol] 20 mg/dL 7-18 [facility] Thin prep Papanicolaou smear with manual screeningOrdered By: Breanne Ruiz on 07-03-2023 Thin prep Papanicolaou smear with manual screening 7 5-15 [facility] Whole blood hemoglobin A1c/t otal hemoglobin ratio (mass fraction)Ordered By: Breanne Ruiz on 06-06-2023 HbA1c (Bld) [Mass fraction] 7.5 % 3.8-5.6 [facility] Comment on above: Normal < 5.7 % Predi abetic 5.7 - 6.4 % Diabetic >or= 6.5 % Please note range changes. Absolute lymphocyte countOrd ered By: Breanne Ruiz on 05-09-2023 Lymphocytes Auto (Unsp spec) [#/Vol] 1.09 10*3/uL 0.83-4.51 [facility] Basophil percentageOrdered B y: Breanne Ruiz on 05-09-2023 Basophils/100 WBC (Bld) 1.2 % 0-1 [facility] Bilirubin [Mass/Vol] 0.30 mg/dL 0.20-1.00 [facility] Comment on above: For patients on eltr ombopag therapy, use of Dimension [place] TBIL is not recommended. Chloride [Moles/Vol] 107 mmol/L 98-107 [facility] Eosinophils/100 WBC (Bld) 2.8 % 0-5 [facility] Glucose [Mass/Vol] 203 mg/dL 74-106 [facility] Comment on above: Glucose result great er than or equal to 200 mg/dLsuggests DIABETES MELLITUS per A.D.A. criteria. Neutrophils (Bld) [#/Vol] 5.5 10*3/uL 2.0-7.7 [facility] Neutrophils/100 WBC (Bld) 68.1 % 47-70 [facility] Potassium [Moles/Vol] 4.0 mmol/L 3.5-5.1 [facility] Protein [Mass/Vol] 7.0 g/dL 6.4-8.2 [facility] Sodium [Moles/Vol] 140 mmol/L 136-145 [facility] WBC (Bld) [#/Vol] 8.1 10*3/uL 4.4-11.0 [facility] Blood erythrocytes count (nu mber/volume)Ordered By: Breanne Ruiz on 05-09-2023 RBC (Bld) [#/Vol] 5.62 10*6/uL 4.2-5.4 [facility] Blood hemoglobin measurement (mass/volume)Ordered By: Breanne Ruiz on 05-09-2023 Hemoglobin (Bld) [Mass/Vol] 14.7 g/dL 12.0-15.0 [facility] Blood lymphocytes/100 leukoc ytesOrdered By: Breanne Ruiz on 05-09-2023 Lymphocytes/100 WBC (Bld) 13.4 % 19-41 [facility] Blood monocytes/100 leukocyt esOrdered By: Breanne Ruiz on 05-09-2023 Monocytes/100 WBC (Bld) 13.8 % 0-10 [facility] Blood platelet mean volumeOr dered By: Breanne Ruiz on 05-09-2023 Platelet mean volume (Bld) [Entitic vol] 9.6 fL 6.2-12.0 [facility] Determination of erythrocyte mean corpuscular volume (MCV)Ordered By: Breanne Ruiz on 05-09-2023 MCV (RBC) [Entitic vol] 88.1 fL 81-99 [facility] Hematocrit Auto (Bld) [Volum e fraction]Ordered By: [facility]hetan Kirklandbeverly on 05-09-2023 Hematocrit (Bld) [Volume fraction] 49.5 % 37-47 [facility] Laboratory - Chemistry and C hemistry - challengeOrdered By: adalbertowittenchetan Ruiz on 05-09-2023 ALP [Catalytic activity/Vol] 111 U/L 45-117 [facility] ALT [Catalytic activity/Vol] 57 U/L 13-56 [facility] CO2 [Moles/Vol] 25.0 mmol/L 21.0-32.0 [facility] Globulin (S) [Mass/Vol] 3.7 g/dL 2.2-4.2 [facility] Urea nitrogen/Creatinine [Mass ratio] 38.0 mg/mg 10-20 [facility] Laboratory - Hematology and Cell countsOrdered By: adalbertowittenchetan Kirklandbeverly on 05-09-2023 Erythrocyte distribution width (RBC) [Entitic vol] 49.4 fL 35.1-43.9 [facility] Erythrocyte distribution width (RBC) [Ratio] 15.6 % 11.6-14.6 [facility] Immature granulocytes/100 WBC (Bld) 0.700 % 0.0-0.9 [facility] Comment on above: IG% - Immature Granu locytes (promyelocytes, myelocytes and metamyelocytes) > 1% indicates that a LEFT SHIFT is Present. MCH (RBC) [Entitic mass] 26.2 pg 27.0-32.0 [facility] Nucleated RBC/100 WBC (Bld) [Ratio] 0 % 0-5 [facility] MCHC Auto (RBC) [Mass/Vol]Or dered By: Breanne Ruiz on 05-09-2023 MCHC (RBC) [Mass/Vol] 29.7 g/dL 32-36 [facility] No Panel InformationOrdered By: Breanne Ruiz on 05-09-2023 Estimated GFR (MDRD) Amer 111 mL/min >60 [facility] Comment on above: GFR Calc Estimated GFR (MDRD) Non-Af Amer 92 mL/min >60 [facility] Comment on above: Non- GFR Calc Platelets bldOrdered By: Prashant Ruiz on 05-09-2023 Platelets (Bld) [#/Vol] 553 10*3/uL 150-450 [facility] Serum or plasma albumin jj urement (mass/volume)Ordered By: Breanne Ruiz on 05-09-2023 Albumin [Mass/Vol] 3.3 g/dL 3.2-5.0 [facility] Serum or plasma albumin/glob ulin mass ratioOrdered By: Breanne Ruiz on 05-09-2023 Albumin/Globulin [Mass ratio] 0.9 {ratio} 0.9-2.4 [facility] Serum or plasma calcium jj urement (mass/volume)Ordered By: Breanne Ruiz on 05-09-2023 Calcium [Mass/Vol] 9.6 mg/dL 8.5-10.1 [facility] Serum or plasma creatinine m easurement (mass/volume)Ordered By: Breanne Ruiz on 05-09-2023 Creatinine [Mass/Vol] 0.68 mg/dL 0.55-1.02 [facility] Comment on above: The validity of the calculated GFR & GFRAA in patients over 70 years has not been determined. Clinical correlation is essential. Serum or plasma urea nitroge n measurement (mass/volume)Ordered By: Breanne Ruiz on 05-09-2023 Urea nitrogen [Mass/Vol] 26 mg/dL 7-18 [facility] Thin prep Papanicolaou smear with manual screeningOrdered By: Breanne Ruiz on 05-09-2023 Thin prep Papanicolaou smear with manual screening 37 U/L 15-37 [facility] Thin prep Papanicolaou smear with manual screening 8 5-15 [facility] Clostridium difficile detect ion by polymerase chain reactionOrdered By: Breanne Ruiz on 02-23-2023 C. difficile DNA MAGALIE+probe Ql (Unsp spec) [facility] Clostridium difficile detect ion by polymerase chain reactionOrdered By: Breanne Ruiz on 02-22-2023 C. difficile DNA MAGALIE+probe Ql (Unsp spec) [facility] Absolute lymphocyte countOrd ered By: Britney Worthington on 02-21-2023 Lymphocytes Auto (Unsp spec) [#/Vol] 0.97 10*3/uL 0.83-4.51 [facility] Basophil percentageOrdered B y: Britney Worthington on 02-21-2023 Basophils/100 WBC (Bld) 1.2 % 0-1 [facility] Chloride [Moles/Vol] 108 mmol/L 98-107 [facility] Eosinophils/100 WBC (Bld) 4.4 % 0-5 [facility] Glucose [Mass/Vol] 178 mg/dL 74-106 [facility] Comment on above: Fasting Glucose resu lt greater than or equal to 126 mg/dL suggests DIABETES MELLITUS per A.D.A. criteria. Neutrophils (Bld) [#/Vol] 8.1 10*3/uL 2.0-7.7 [facility] Neutrophils/100 WBC (Bld) 74.9 % 47-70 [facility] Potassium [Moles/Vol] 3.7 mmol/L 3.5-5.1 [facility] Sodium [Moles/Vol] 140 mmol/L 136-145 [facility] WBC (Bld) [#/Vol] 10.8 10*3/uL 4.4-11.0 [facility] Blood erythrocytes count (nu mber/volume)Ordered By: Britney Worthington on 02-21-2023 RBC (Bld) [#/Vol] 5.06 10*6/uL 4.2-5.4 [facility] Blood hemoglobin measurement (mass/volume)Ordered By: Britney Worthington on 02-21-2023 Hemoglobin (Bld) [Mass/Vol] 13.3 g/dL 12.0-15.0 [facility] Blood lymphocytes/100 leukoc ytesOrdered By: Britney Worthington on 02-21-2023 Lymphocytes/100 WBC (Bld) 9.0 % 19-41 [facility] Blood monocytes/100 leukocyt esOrdered By: Britney Worthington on 02-21-2023 Monocytes/100 WBC (Bld) 9.8 % 0-10 [facility] Blood platelet mean volumeOr dered By: Britney Worthington on 02-21-2023 Platelet mean volume (Bld) [Entitic vol] 9.2 fL 6.2-12.0 [facility] Determination of erythrocyte mean corpuscular volume (MCV)Ordered By: Britney Worthington on 02-21-2023 MCV (RBC) [Entitic vol] 89.5 fL 81-99 [facility] Hematocrit Auto (Bld) [Volum e fraction]Ordered By: Britney Worthington on 02-21-2023 Hematocrit (Bld) [Volume fraction] 45.3 % 37-47 [facility] Laboratory - Chemistry and C hemistry - challengeOrdered By: Britney Worthington on 02-21-2023 CO2 [Moles/Vol] 24.0 mmol/L 21.0-32.0 [facility] Urea nitrogen/Creatinine [Mass ratio] 37.7 mg/mg 10-20 [facility] Laboratory - Hematology and Cell countsOrdered By: Britney Worthington on 02-21-2023 Erythrocyte distribution width (RBC) [Entitic vol] 47.6 fL 35.1-43.9 [facility] Erythrocyte distribution width (RBC) [Ratio] 14.5 % 11.6-14.6 [facility] Immature granulocytes/100 WBC (Bld) 0.700 % 0.0-0.9 [facility] Comment on above: IG% - Immature Granu locytes (promyelocytes, myelocytes and metamyelocytes) > 1% indicates that a LEFT SHIFT is Present. MCH (RBC) [Entitic mass] 26.3 pg 27.0-32.0 [facility] Nucleated RBC/100 WBC (Bld) [Ratio] 0 % 0-5 [facility] MCHC Auto (RBC) [Mass/Vol]Or dered By: Britney Worthington on 02-21-2023 MCHC (RBC) [Mass/Vol] 29.4 g/dL 32-36 [facility] No Panel InformationOrdered By: Britney Worthintgon on 02-21-2023 Estimated GFR (MDRD) Amer 105 mL/min >60 [facility] Comment on above: GFR Calc Estimated GFR (MDRD) Non-Af Amer 87 mL/min >60 [facility] Comment on above: Non- GFR Calc Platelets bldOrdered By: hPillip Worthington on 02-21-2023 Platelets (Bld) [#/Vol] 500 10*3/uL 150-450 [facility] Serum or plasma calcium jj urement (mass/volume)Ordered By: Britney Worthington on 02-21-2023 Calcium [Mass/Vol] 9.1 mg/dL 8.5-10.1 [facility] Serum or plasma creatinine m easurement (mass/volume)Ordered By: Britney Worthington on 02-21-2023 Creatinine [Mass/Vol] 0.72 mg/dL 0.55-1.02 [facility] Comment on above: The validity of the calculated GFR & GFRAA in patients over 70 years has not been determined. Clinical correlation is essential. Serum or plasma urea nitroge n measurement (mass/volume)Ordered By: Britney Worthington on 02-21-2023 Urea nitrogen [Mass/Vol] 27 mg/dL 7-18 [facility] Thin prep Papanicolaou smear with manual screeningOrdered By: Britney Worthington on 02-21-2023 Thin prep Papanicolaou smear with manual screening 8 5-15 [facility] Bilirubin Test strip Ql (U)O rdered By: Breanne Ruiz on 02-13-2023 Bilirubin Ql (U) Negative Negative [facility] Culture, urineOrdered By: Elio Ruiz on 02-13-2023 Bacteria identified Cx Nom (U) Escherichia coli [facility] Ketones Test strip Ql (U)Ord ered By: Breanne Ruiz on 02-13-2023 Ketones Ql (U) 5 mg/dl Negative [facility] Nitrite Test strip Ql (U)Ord ered By: Breanne Ruiz on 02-13-2023 Nitrite Ql (U) Positive Negative [facility] Protein Test strip Ql (U)Ord ered By: Breanne Ruiz on 02-13-2023 Protein Ql (U) 30 mg/dl Negative [facility] Urine blood detectionOrdered By: Breanne Ruiz on 09-11-2023 RBC Ql (U) 250 /ul Negative [facility] Urine clarityOrdered By: Prashant Ruiz on 02-13-2023 Clarity (U) Cloudy Clear [facility] Urine color determinationOrd ered By: Breanne Ruiz on 02-13-2023 Color (U) Brown Yellow [facility] Urine glucose detectionOrder ed By: Breanne Ruiz on 02-13-2023 Glucose Ql (U) Normal mg/dl Normal [facility] Urine leukocyte esterase det ection by dipstickOrdered By: Breanne Ruiz on 02-13-2023 Leukocyte esterase Test strip Ql (U) 25 /ul Negative [facility] Urine pHOrdered By: Bhupendra Ruiz on 02-13-2023 pH (U) 5.0 [pH] 5.0 - 8.0 [facility] Urine specific gravity measu rementOrdered By: Breanne Ruiz on 02-13-2023 Specific gravity (U) [Rel density] 1.025 1.002-1.030 [facility] Urobilinogen Auto test strip Ql (U)Ordered By: Breanne Ruiz on 02-13-2023 Urobilinogen Ql (U) 1 mg/dl Normal [facility] Absolute lymphocyte countOrd ered By: Breanne Ruiz on 02-07-2023 Lymphocytes Auto (Unsp spec) [#/Vol] 0.94 10*3/uL 0.83-4.51 [facility] Basophil percentageOrdered B y: Breanne Ruiz on 02-07-2023 Basophils/100 WBC (Bld) 1.1 % 0-1 [facility] Chloride [Moles/Vol] 110 mmol/L 98-107 [facility] Eosinophils/100 WBC (Bld) 5.5 % 0-5 [facility] Glucose [Mass/Vol] 160 mg/dL 74-106 [facility] Comment on above: Fasting Glucose resu lt greater than or equal to 126 mg/dL suggests DIABETES MELLITUS per A.D.A. criteria. Neutrophils (Bld) [#/Vol] 6.3 10*3/uL 2.0-7.7 [facility] Neutrophils/100 WBC (Bld) 70.8 % 47-70 [facility] Potassium [Moles/Vol] 3.9 mmol/L 3.5-5.1 [facility] Sodium [Moles/Vol] 141 mmol/L 136-145 [facility] WBC (Bld) [#/Vol] 9.0 10*3/uL 4.4-11.0 [facility] Blood erythrocytes count (nu mber/volume)Ordered By: Breanne Ruiz on 02-07-2023 RBC (Bld) [#/Vol] 4.98 10*6/uL 4.2-5.4 [facility] Blood hemoglobin measurement (mass/volume)Ordered By: Breanne Ruiz on 02-07-2023 Hemoglobin (Bld) [Mass/Vol] 13.3 g/dL 12.0-15.0 [facility] Blood lymphocytes/100 leukoc ytesOrdered By: Abbiewittenchetan Ruiz on 02-07-2023 Lymphocytes/100 WBC (Bld) 10.5 % 19-41 [facility] Blood monocytes/100 leukocyt esOrdered By: Breanne Ruiz on 02-07-2023 Monocytes/100 WBC (Bld) 11.1 % 0-10 [facility] Blood platelet mean volumeOr dered By: Breanne Ruiz on 02-07-2023 Platelet mean volume (Bld) [Entitic vol] 9.0 fL 6.2-12.0 [facility] Determination of erythrocyte mean corpuscular volume (MCV)Ordered By: Breanne Ruiz on 02-07-2023 MCV (RBC) [Entitic vol] 88.8 fL 81-99 [facility] Hematocrit Auto (Bld) [Volum e fraction]Ordered By: Breanne Ruiz on 02-07-2023 Hematocrit (Bld) [Volume fraction] 44.2 % 37-47 [facility] Laboratory - Chemistry and C hemistry - challengeOrdered By: Breanne Ruiz on 02-07-2023 CO2 [Moles/Vol] 24.0 mmol/L 21.0-32.0 [facility] Urea nitrogen/Creatinine [Mass ratio] 37.3 mg/mg 10-20 [facility] Laboratory - Hematology and Cell countsOrdered By: Breanne Ruiz on 02-07-2023 Erythrocyte distribution width (RBC) [Entitic vol] 47.9 fL 35.1-43.9 [facility] Erythrocyte distribution width (RBC) [Ratio] 14.6 % 11.6-14.6 [facility] Immature granulocytes/100 WBC (Bld) 1.000 % 0.0-0.9 [facility] Comment on above: IG% - Immature Granu locytes (promyelocytes, myelocytes and metamyelocytes) > 1% indicates that a LEFT SHIFT is Present. MCH (RBC) [Entitic mass] 26.7 pg 27.0-32.0 [facility] Nucleated RBC/100 WBC (Bld) [Ratio] 0 % 0-5 [facility] MCHC Auto (RBC) [Mass/Vol]Or dered By: Breanne Ruiz on 02-07-2023 MCHC (RBC) [Mass/Vol] 30.1 g/dL 32-36 [facility] No Panel InformationOrdered By: Breanne Ruiz on 02-07-2023 Estimated GFR (MDRD) Amer 132 mL/min >60 [facility] Comment on above: GFR Calc Estimated GFR (MDRD) Non-Af Amer 109 mL/min >60 [facility] Comment on above: Non- GFR Calc Platelets bldOrdered By: Prashant Ruiz on 02-07-2023 Platelets (Bld) [#/Vol] 478 10*3/uL 150-450 [facility] Serum or plasma calcium jj urement (mass/volume)Ordered By: Breanne Ruiz on 02-07-2023 Calcium [Mass/Vol] 8.9 mg/dL 8.5-10.1 [facility] Serum or plasma creatinine m easurement (mass/volume)Ordered By: Braenne Ruiz on 02-07-2023 Creatinine [Mass/Vol] 0.59 mg/dL 0.55-1.02 [facility] Comment on above: The validity of the calculated GFR & GFRAA in patients over 70 years has not been determined. Clinical correlation is essential. Serum or plasma urea nitroge n measurement (mass/volume)Ordered By: Breanne Ruiz on 02-07-2023 Urea nitrogen [Mass/Vol] 22 mg/dL 7-18 [facility] Thin prep Papanicolaou smear with manual screeningOrdered By: Breanne Ruiz on 02-07-2023 Thin prep Papanicolaou smear with manual screening 7 5-15 [facility] Absolute lymphocyte countOrd ered By: Britney Worthington on 01-24-2023 Lymphocytes Auto (Unsp spec) [#/Vol] 0.89 10*3/uL 0.83-4.51 [facility] Basophil percentageOrdered B y: Britney Worthington on 01-24-2023 Basophils/100 WBC (Bld) 1.1 % 0-1 [facility] Chloride [Moles/Vol] 108 mmol/L 98-107 [facility] Eosinophils/100 WBC (Bld) 5.0 % 0-5 [facility] Glucose [Mass/Vol] 141 mg/dL 74-106 [facility] Comment on above: Fasting Glucose resu lt greater than or equal to 126 mg/dL suggests DIABETES MELLITUS per A.D.A. criteria. Neutrophils (Bld) [#/Vol] 5.9 10*3/uL 2.0-7.7 [facility] Neutrophils/100 WBC (Bld) 71.4 % 47-70 [facility] Potassium [Moles/Vol] 3.9 mmol/L 3.5-5.1 [facility] Sodium [Moles/Vol] 140 mmol/L 136-145 [facility] WBC (Bld) [#/Vol] 8.2 10*3/uL 4.4-11.0 [facility] Blood erythrocytes count (nu mber/volume)Ordered By: Britney Worthington on 01-24-2023 RBC (Bld) [#/Vol] 4.81 10*6/uL 4.2-5.4 [facility] Blood hemoglobin measurement (mass/volume)Ordered By: Britney Worthington on 01-24-2023 Hemoglobin (Bld) [Mass/Vol] 12.8 g/dL 12.0-15.0 [facility] Blood lymphocytes/100 leukoc ytesOrdered By: Britney Worthington on 01-24-2023 Lymphocytes/100 WBC (Bld) 10.9 % 19-41 [facility] Blood monocytes/100 leukocyt esOrdered By: Britney Worthington on 01-24-2023 Monocytes/100 WBC (Bld) 11.0 % 0-10 [facility] Blood platelet mean volumeOr dered By: Britney Worthington on 01-24-2023 Platelet mean volume (Bld) [Entitic vol] 9.0 fL 6.2-12.0 [facility] Determination of erythrocyte mean corpuscular volume (MCV)Ordered By: Britney Worthington on 01-24-2023 MCV (RBC) [Entitic vol] 88.8 fL 81-99 [facility] Hematocrit Auto (Bld) [Volum e fraction]Ordered By: Britney Worthington on 01-24-2023 Hematocrit (Bld) [Volume fraction] 42.7 % 37-47 [facility] Laboratory - Chemistry and C hemistry - challengeOrdered By: Britney Worthington on 01-24-2023 CO2 [Moles/Vol] 25.0 mmol/L 21.0-32.0 [facility] Urea nitrogen/Creatinine [Mass ratio] 33.7 mg/mg 10-20 [facility] Laboratory - Hematology and Cell countsOrdered By: Britney Worthington on 01-24-2023 Erythrocyte distribution width (RBC) [Entitic vol] 48.3 fL 35.1-43.9 [facility] Erythrocyte distribution width (RBC) [Ratio] 14.8 % 11.6-14.6 [facility] Immature granulocytes/100 WBC (Bld) 0.600 % 0.0-0.9 [facility] Comment on above: IG% - Immature Granu locytes (promyelocytes, myelocytes and metamyelocytes) > 1% indicates that a LEFT SHIFT is Present. MCH (RBC) [Entitic mass] 26.6 pg 27.0-32.0 [facility] Nucleated RBC/100 WBC (Bld) [Ratio] 0 % 0-5 [facility] MCHC Auto (RBC) [Mass/Vol]Or dered By: Britney Worthington on 01-24-2023 MCHC (RBC) [Mass/Vol] 30.0 g/dL 32-36 [facility] No Panel InformationOrdered By: Britney Worthington on 01-24-2023 Estimated GFR (MDRD) Amer 131 mL/min >60 [facility] Comment on above: GFR Calc Estimated GFR (MDRD) Non-Af Amer 108 mL/min >60 [facility] Comment on above: Non- GFR Calc Platelets bldOrdered By: Phillip Worthington on 01-24-2023 Platelets (Bld) [#/Vol] 479 10*3/uL 150-450 [facility] Serum or plasma calcium jj urement (mass/volume)Ordered By: Britney Worthington on 01-24-2023 Calcium [Mass/Vol] 8.9 mg/dL 8.5-10.1 [facility] Serum or plasma creatinine m easurement (mass/volume)Ordered By: Britney Worthington on 01-24-2023 Creatinine [Mass/Vol] 0.59 mg/dL 0.55-1.02 [facility] Comment on above: The validity of the calculated GFR & GFRAA in patients over 70 years has not been determined. Clinical correlation is essential. Serum or plasma urea nitroge n measurement (mass/volume)Ordered By: Britney Worthington on 01-24-2023 Urea nitrogen [Mass/Vol] 20 mg/dL 7-18 [facility] Thin prep Papanicolaou smear with manual screeningOrdered By: Britney Worthington on 01-24-2023 Thin prep Papanicolaou smear with manual screening 7 5-15 [facility] Absolute lymphocyte countOrd ered By: Breanne Ruiz on 01-10-2023 Lymphocytes Auto (Unsp spec) [#/Vol] 0.84 10*3/uL 0.83-4.51 [facility] Basophil percentageOrdered B y: Breanne Ruiz on 01-10-2023 Basophils/100 WBC (Bld) 1.0 % 0-1 [facility] Chloride [Moles/Vol] 109 mmol/L 98-107 [facility] Eosinophils/100 WBC (Bld) 4.6 % 0-5 [facility] Glucose [Mass/Vol] 147 mg/dL 74-106 [facility] Comment on above: Fasting Glucose resu lt greater than or equal to 126 mg/dL suggests DIABETES MELLITUS per A.D.A. criteria. Neutrophils (Bld) [#/Vol] 7.2 10*3/uL 2.0-7.7 [facility] Neutrophils/100 WBC (Bld) 74.5 % 47-70 [facility] Potassium [Moles/Vol] 3.9 mmol/L 3.5-5.1 [facility] Sodium [Moles/Vol] 140 mmol/L 136-145 [facility] WBC (Bld) [#/Vol] 9.7 10*3/uL 4.4-11.0 [facility] Blood erythrocytes count (nu mber/volume)Ordered By: Breanne Ruiz on 01-10-2023 RBC (Bld) [#/Vol] 4.98 10*6/uL 4.2-5.4 [facility] Blood hemoglobin measurement (mass/volume)Ordered By: Breanne Ruiz on 01-10-2023 Hemoglobin (Bld) [Mass/Vol] 13.4 g/dL 12.0-15.0 [facility] Blood lymphocytes/100 leukoc ytesOrdered By: Breanne Ruiz on 01-10-2023 Lymphocytes/100 WBC (Bld) 8.7 % 19-41 [facility] Blood monocytes/100 leukocyt esOrdered By: Abbiewittenchetan Ruiz on 01-10-2023 Monocytes/100 WBC (Bld) 10.3 % 0-10 [facility] Blood platelet mean volumeOr dered By: Breanne Ruiz on 01-10-2023 Platelet mean volume (Bld) [Entitic vol] 8.8 fL 6.2-12.0 [facility] Determination of erythrocyte mean corpuscular volume (MCV)Ordered By: Breanne Ruiz on 01-10-2023 MCV (RBC) [Entitic vol] 86.5 fL 81-99 [facility] Hematocrit Auto (Bld) [Volum e fraction]Ordered By: Breanne Ruiz on 01-10-2023 Hematocrit (Bld) [Volume fraction] 43.1 % 37-47 [facility] Laboratory - Chemistry and C hemistry - challengeOrdered By: Breanne Ruiz on 01-10-2023 CO2 [Moles/Vol] 24.0 mmol/L 21.0-32.0 [facility] Urea nitrogen/Creatinine [Mass ratio] 36.1 mg/mg 10-20 [facility] Laboratory - Hematology and Cell countsOrdered By: Breanne Ruiz on 01-10-2023 Erythrocyte distribution width (RBC) [Entitic vol] 48.4 fL 35.1-43.9 [facility] [facility] Erythrocyte distribution width (RBC) [Ratio] 15.3 % 11.6-14.6 [facility] Immature granulocytes/100 WBC (Bld) 0.900 % 0.0-0.9 [facility] Comment on above: IG% - Immature Granu locytes (promyelocytes, myelocytes and metamyelocytes) > 1% indicates that a LEFT SHIFT is Present. MCH (RBC) [Entitic mass] 26.9 pg 27.0-32.0 [facility] Nucleated RBC/100 WBC (Bld) [Ratio] 0 % 0-5 [facility] MCHC Auto (RBC) [Mass/Vol]Or dered By: Breanne Ruiz on 01-10-2023 MCHC (RBC) [Mass/Vol] 31.1 g/dL 32-36 [facility] No Panel InformationOrdered By: Breanne Ruiz on 01-10-2023 Estimated GFR (MDRD) Amer 121 mL/min >60 [facility] Comment on above: GFR Calc Estimated GFR (MDRD) Non-Af Amer 100 mL/min >60 [facility] Comment on above: Non- GFR Calc Platelets bldOrdered By: Prashant Ruiz on 01-10-2023 Platelets (Bld) [#/Vol] 513 10*3/uL 150-450 [facility] Serum or plasma calcium jj urement (mass/volume)Ordered By: Breanne Ruiz on 01-10-2023 Calcium [Mass/Vol] 9.2 mg/dL 8.5-10.1 [facility] Serum or plasma creatinine m easurement (mass/volume)Ordered By: Breanne Ruiz on 01-10-2023 Creatinine [Mass/Vol] 0.64 mg/dL 0.55-1.02 [facility] Comment on above: The validity of the calculated GFR & GFRAA in patients over 70 years has not been determined. Clinical correlation is essential. Serum or plasma urea nitroge n measurement (mass/volume)Ordered By: adalbertowittenchetan Ruiz on 01-10-2023 Urea nitrogen [Mass/Vol] 23 mg/dL 7-18 [facility] Thin prep Papanicolaou smear with manual screeningOrdered By: [facility]hetan Kirklandbeverly on 01-10-2023 Thin prep Papanicolaou smear with manual screening 7 5-15 [facility] Absolute lymphocyte countOrd ered By: adalbertowittenchetan Kirklandbeverly on 12-27-2022 Lymphocytes Auto (Unsp spec) [#/Vol] 0.84 10*3/uL 0.83-4.51 [facility] Basophil percentageOrdered B y: Breanne Ruiz on 12-27-2022 Basophils/100 WBC (Bld) 1.3 % 0-1 [facility] Chloride [Moles/Vol] 108 mmol/L 98-107 [facility] Eosinophils/100 WBC (Bld) 4.3 % 0-5 [facility] Glucose [Mass/Vol] 178 mg/dL 74-106 [facility] Comment on above: Fasting Glucose resu lt greater than or equal to 126 mg/dL suggests DIABETES MELLITUS per A.D.A. criteria. Neutrophils (Bld) [#/Vol] 6.8 10*3/uL 2.0-7.7 [facility] Neutrophils/100 WBC (Bld) 73.8 % 47-70 [facility] Potassium [Moles/Vol] 3.9 mmol/L 3.5-5.1 [facility] Sodium [Moles/Vol] 138 mmol/L 136-145 [facility] WBC (Bld) [#/Vol] 9.3 10*3/uL 4.4-11.0 [facility] Blood erythrocytes count (nu mber/volume)Ordered By: adalbertowittenchetan Ruiz on 12-27-2022 RBC (Bld) [#/Vol] 4.96 10*6/uL 4.2-5.4 [facility] Blood hemoglobin measurement (mass/volume)Ordered By: Breanne Ruiz on 12-27-2022 Hemoglobin (Bld) [Mass/Vol] 13.1 g/dL 12.0-15.0 [facility] Blood lymphocytes/100 leukoc ytesOrdered By: vannessa Ruiz on 12-27-2022 Lymphocytes/100 WBC (Bld) 9.1 % 19-41 [facility] Blood monocytes/100 leukocyt esOrdered By: vannessa Ruiz on 12-27-2022 Monocytes/100 WBC (Bld) 10.9 % 0-10 [facility] Blood platelet mean volumeOr dered By: Breanne Ruiz on 12-27-2022 Platelet mean volume (Bld) [Entitic vol] 8.9 fL 6.2-12.0 [facility] Determination of erythrocyte mean corpuscular volume (MCV)Ordered By: Breanne Ruiz on 12-27-2022 MCV (RBC) [Entitic vol] 88.9 fL 81-99 [facility] Hematocrit Auto (Bld) [Volum e fraction]Ordered By: vannessa Ruiz on 12-27-2022 Hematocrit (Bld) [Volume fraction] 44.1 % 37-47 [facility] Laboratory - Chemistry and C hemistry - challengeOrdered By: adalbertowittenchetan Ruiz on 12-27-2022 CO2 [Moles/Vol] 24.0 mmol/L 21.0-32.0 [facility] Urea nitrogen/Creatinine [Mass ratio] 32.3 mg/mg 10-20 [facility] Laboratory - Hematology and Cell countsOrdered By: Breanne Ruiz on 12-27-2022 Erythrocyte distribution width (RBC) [Entitic vol] 50.8 fL 35.1-43.9 [facility] Erythrocyte distribution width (RBC) [Ratio] 15.7 % 11.6-14.6 [facility] Immature granulocytes/100 WBC (Bld) 0.600 % 0.0-0.9 [facility] Comment on above: IG% - Immature Granu locytes (promyelocytes, myelocytes and metamyelocytes) > 1% indicates that a LEFT SHIFT is Present. MCH (RBC) [Entitic mass] 26.4 pg 27.0-32.0 [facility] Nucleated RBC/100 WBC (Bld) [Ratio] 0 % 0-5 [facility] MCHC Auto (RBC) [Mass/Vol]Or dered By: Breanne Ruiz on 12-27-2022 MCHC (RBC) [Mass/Vol] 29.7 g/dL 32-36 [facility] No Panel InformationOrdered By: Breanne Ruiz on 12-27-2022 Estimated GFR (MDRD) Amer 101 mL/min >60 [facility] Comment on above: GFR Calc Estimated GFR (MDRD) Non-Af Amer 84 mL/min >60 [facility] Comment on above: Non- GFR Calc Platelets bldOrdered By: Prashant Ruiz on 12-27-2022 Platelets (Bld) [#/Vol] 491 10*3/uL 150-450 [facility] Serum or plasma calcium jj urement (mass/volume)Ordered By: Breanne Ruiz on 12-27-2022 Calcium [Mass/Vol] 9.3 mg/dL 8.5-10.1 [facility] Serum or plasma creatinine m easurement (mass/volume)Ordered By: Breanne Ruiz on 12-27-2022 Creatinine [Mass/Vol] 0.74 mg/dL 0.55-1.02 [facility] Comment on above: The validity of the calculated GFR & GFRAA in patients over 70 years has not been determined. Clinical correlation is essential. Serum or plasma urea nitroge n measurement (mass/volume)Ordered By: Breanne Ruiz on 12-27-2022 Urea nitrogen [Mass/Vol] 24 mg/dL 7-18 [facility] Thin prep Papanicolaou smear with manual screeningOrdered By: Breanne Ruiz on 12-27-2022 Thin prep Papanicolaou smear with manual screening 6 5-15 [facility] Absolute lymphocyte countOrd ered By: Breanne Ruiz on 12-13-2022 Lymphocytes Auto (Unsp spec) [#/Vol] 0.84 10*3/uL 0.83-4.51 [facility] Basophil percentageOrdered B y: Breanne Ruiz on 12-13-2022 Basophils/100 WBC (Bld) 1.2 % 0-1 [facility] Chloride [Moles/Vol] 108 mmol/L 98-107 [facility] Eosinophils/100 WBC (Bld) 4.5 % 0-5 [facility] Glucose [Mass/Vol] 150 mg/dL 74-106 [facility] Comment on above: Fasting Glucose resu lt greater than or equal to 126 mg/dL suggests DIABETES MELLITUS per A.D.A. criteria. Neutrophils (Bld) [#/Vol] 5.4 10*3/uL 2.0-7.7 [facility] Neutrophils/100 WBC (Bld) 71.5 % 47-70 [facility] Potassium [Moles/Vol] 3.8 mmol/L 3.5-5.1 [facility] Sodium [Moles/Vol] 139 mmol/L 136-145 [facility] WBC (Bld) [#/Vol] 7.5 10*3/uL 4.4-11.0 [facility] Blood erythrocytes count (nu mber/volume)Ordered By: Breanne Ruiz on 12-13-2022 RBC (Bld) [#/Vol] 4.96 10*6/uL 4.2-5.4 [facility] Blood hemoglobin measurement (mass/volume)Ordered By: Breanne Ruiz on 12-13-2022 Hemoglobin (Bld) [Mass/Vol] 13.2 g/dL 12.0-15.0 [facility] Blood lymphocytes/100 leukoc ytesOrdered By: Breanne Ruiz on 12-13-2022 Lymphocytes/100 WBC (Bld) 11.2 % 19-41 [facility] Blood monocytes/100 leukocyt esOrdered By: Breanne Ruiz on 12-13-2022 Monocytes/100 WBC (Bld) 10.4 % 0-10 [facility] Blood platelet mean volumeOr dered By: Breanne Ruiz on 12-13-2022 Platelet mean volume (Bld) [Entitic vol] 8.7 fL 6.2-12.0 [facility] Determination of erythrocyte mean corpuscular volume (MCV)Ordered By: Breanne Ruiz on 12-13-2022 MCV (RBC) [Entitic vol] 87.1 fL 81-99 [facility] Hematocrit Auto (Bld) [Volum e fraction]Ordered By: Breanne Ruiz on 12-13-2022 Hematocrit (Bld) [Volume fraction] 43.2 % 37-47 [facility] Laboratory - Chemistry and C hemistry - challengeOrdered By: Breanne Ruiz on 12-13-2022 CO2 [Moles/Vol] 26.0 mmol/L 21.0-32.0 [facility] Urea nitrogen/Creatinine [Mass ratio] 31.7 mg/mg 10-20 [facility] Laboratory - Hematology and Cell countsOrdered By: Breanne Ruiz on 12-13-2022 Erythrocyte distribution width (RBC) [Entitic vol] 49.9 fL 35.1-43.9 [facility] Erythrocyte distribution width (RBC) [Ratio] 15.9 % 11.6-14.6 [facility] Immature granulocytes/100 WBC (Bld) 1.200 % 0.0-0.9 [facility] Comment on above: IG% - Immature Granu locytes (promyelocytes, myelocytes and metamyelocytes) > 1% indicates that a LEFT SHIFT is Present. MCH (RBC) [Entitic mass] 26.6 pg 27.0-32.0 [facility] Nucleated RBC/100 WBC (Bld) [Ratio] 0 % 0-5 [facility] MCHC Auto (RBC) [Mass/Vol]Or dered By: Breanne Ruiz on 12-13-2022 MCHC (RBC) [Mass/Vol] 30.6 g/dL 32-36 [facility] No Panel InformationOrdered By: Breanne Ruiz on 12-13-2022 Estimated GFR (MDRD) Amer 122 mL/min >60 [facility] Comment on above: GFR Calc Estimated GFR (MDRD) Non-Af Amer 101 mL/min >60 [facility] Comment on above: Non- GFR Calc Platelets bldOrdered By: Prashant Ruiz on 12-13-2022 Platelets (Bld) [#/Vol] 502 10*3/uL 150-450 [facility] Serum or plasma calcium jj urement (mass/volume)Ordered By: Breanne Isaelmichaelbeverly on 12-13-2022 Calcium [Mass/Vol] 9.2 mg/dL 8.5-10.1 [facility] Serum or plasma creatinine m easurement (mass/volume)Ordered By: Elioadalbertolalitachetan Kirklandmichaelbeverly on 12-13-2022 Creatinine [Mass/Vol] 0.63 mg/dL 0.55-1.02 [facility] Comment on above: The validity of the calculated GFR & GFRAA in patients over 70 years has not been determined. Clinical correlation is essential. Serum or plasma urea nitroge n measurement (mass/volume)Ordered By: Rufinochetan Kirklandmichaelbeverly on 12-13-2022 Urea nitrogen [Mass/Vol] 20 mg/dL 7-18 [facility] Thin prep Papanicolaou smear with manual screeningOrdered By: adalbertotracy Isaelmichaelbeverly on 12-13-2022 Thin prep Papanicolaou smear with manual screening 5 5-15 [facility] Absolute lymphocyte countOrd ered By: Breanne Isaelhussain on 11-29-2022 Lymphocytes Auto (Unsp spec) [#/Vol] 0.94 10*3/uL 0.83-4.51 [facility] Basophil percentageOrdered B y: Rufinochetan Ruiz on 11-29-2022 Basophils/100 WBC (Bld) 1.1 % 0-1 [facility] Chloride [Moles/Vol] 106 mmol/L 98-107 [facility] Eosinophils/100 WBC (Bld) 5.0 % 0-5 [facility] Glucose [Mass/Vol] 137 mg/dL 74-106 [facility] Comment on above: Fasting Glucose resu lt greater than or equal to 126 mg/dL suggests DIABETES MELLITUS per A.D.A. criteria. Neutrophils (Bld) [#/Vol] 6.1 10*3/uL 2.0-7.7 [facility] Neutrophils/100 WBC (Bld) 71.9 % 47-70 [facility] Potassium [Moles/Vol] 3.9 mmol/L 3.5-5.1 [facility] Sodium [Moles/Vol] 138 mmol/L 136-145 [facility] WBC (Bld) [#/Vol] 8.4 10*3/uL 4.4-11.0 [facility] Blood erythrocytes count (nu mber/volume)Ordered By: Breanne Ruiz on 11-29-2022 RBC (Bld) [#/Vol] 5.05 10*6/uL 4.2-5.4 [facility] Blood hemoglobin measurement (mass/volume)Ordered By: Breanne Ruiz on 11-29-2022 Hemoglobin (Bld) [Mass/Vol] 13.5 g/dL 12.0-15.0 [facility] Blood lymphocytes/100 leukoc ytesOrdered By: Breanne Ruiz on 11-29-2022 Lymphocytes/100 WBC (Bld) 11.1 % 19-41 [facility] Blood monocytes/100 leukocyt esOrdered By: Breanne Ruiz on 11-29-2022 Monocytes/100 WBC (Bld) 10.3 % 0-10 [facility] Blood platelet mean volumeOr dered By: Breanne Ruiz on 11-29-2022 Platelet mean volume (Bld) [Entitic vol] 8.8 fL 6.2-12.0 [facility] Determination of erythrocyte mean corpuscular volume (MCV)Ordered By: Breanne Ruiz on 11-29-2022 MCV (RBC) [Entitic vol] 87.5 fL 81-99 [facility] Hematocrit Auto (Bld) [Volum e fraction]Ordered By: Breanne Ruiz on 11-29-2022 Hematocrit (Bld) [Volume fraction] 44.2 % 37-47 [facility] Laboratory - Chemistry and C hemistry - challengeOrdered By: Breanne Ruiz on 11-29-2022 CO2 [Moles/Vol] 23.0 mmol/L 21.0-32.0 [facility] Urea nitrogen/Creatinine [Mass ratio] 26.3 mg/mg 10-20 [facility] Laboratory - Hematology and Cell countsOrdered By: Breanne Ruiz on 11-29-2022 Erythrocyte distribution width (RBC) [Entitic vol] 49.9 fL 35.1-43.9 [facility] Erythrocyte distribution width (RBC) [Ratio] 15.7 % 11.6-14.6 [facility] Immature granulocytes/100 WBC (Bld) 0.600 % 0.0-0.9 [facility] Comment on above: IG% - Immature Granu locytes (promyelocytes, myelocytes and metamyelocytes) > 1% indicates that a LEFT SHIFT is Present. MCH (RBC) [Entitic mass] 26.7 pg 27.0-32.0 [facility] Nucleated RBC/100 WBC (Bld) [Ratio] 0 % 0-5 [facility] MCHC Auto (RBC) [Mass/Vol]Or dered By: Breanne Ruiz on 11-29-2022 MCHC (RBC) [Mass/Vol] 30.5 g/dL 32-36 [facility] No Panel InformationOrdered By: Breanne Ruiz on 11-29-2022 Estimated GFR (MDRD) Amer 104 mL/min >60 [facility] Comment on above: GFR Calc Estimated GFR (MDRD) Non-Af Amer 86 mL/min >60 [facility] Comment on above: Non- GFR Calc Platelets bldOrdered By: Prashant Ruiz on 11-29-2022 Platelets (Bld) [#/Vol] 479 10*3/uL 150-450 [facility] Serum or plasma calcium jj urement (mass/volume)Ordered By: Breanne Ruiz on 11-29-2022 Calcium [Mass/Vol] 9.4 mg/dL 8.5-10.1 [facility] Serum or plasma creatinine m easurement (mass/volume)Ordered By: Breanne Ruiz on 11-29-2022 Creatinine [Mass/Vol] 0.72 mg/dL 0.55-1.02 [facility] Comment on above: The validity of the calculated GFR & GFRAA in patients over 70 years has not been determined. Clinical correlation is essential. Serum or plasma urea nitroge n measurement (mass/volume)Ordered By: Breanne Ruiz on 11-29-2022 Urea nitrogen [Mass/Vol] 19 mg/dL 7-18 [facility] Thin prep Papanicolaou smear with manual screeningOrdered By: Breanne Ruiz on 11-29-2022 Thin prep Papanicolaou smear with manual screening 9 5-15 [facility] Absolute lymphocyte countOrd ered By: Asad Jamison on 11-15-2022 Lymphocytes Auto (Unsp spec) [#/Vol] 1.08 10*3/uL 0.83-4.51 [facility] Basophil percentageOrdered B y: Asad Jamison on 11-15-2022 Basophils/100 WBC (Bld) 0.9 % 0-1 [facility] Chloride [Moles/Vol] 106 mmol/L 98-107 [facility] Eosinophils/100 WBC (Bld) 2.2 % 0-5 [facility] Glucose [Mass/Vol] 120 mg/dL 74-106 [facility] Comment on above: Fasting Glucose resu lt from 100 to 125 mg/dL suggests IMPAIRED HOMEOSTASIS per A.D.A. criteria. Neutrophils (Bld) [#/Vol] 8.1 10*3/uL 2.0-7.7 [facility] Neutrophils/100 WBC (Bld) 75.6 % 47-70 [facility] Potassium [Moles/Vol] 4.1 mmol/L 3.5-5.1 [facility] Sodium [Moles/Vol] 141 mmol/L 136-145 [facility] WBC (Bld) [#/Vol] 10.7 10*3/uL 4.4-11.0 [facility] Blood erythrocytes count (nu mber/volume)Ordered By: Asad Jamison on 11-15-2022 RBC (Bld) [#/Vol] 5.54 10*6/uL 4.2-5.4 [facility] Blood hemoglobin measurement (mass/volume)Ordered By: Asad Jamison on 11-15-2022 Hemoglobin (Bld) [Mass/Vol] 14.8 g/dL 12.0-15.0 [facility] Blood lymphocytes/100 leukoc ytesOrdered By: Asad Jamison on 11-15-2022 Lymphocytes/100 WBC (Bld) 10.1 % 19-41 [facility] Blood monocytes/100 leukocyt esOrdered By: Asad Jamison on 11-15-2022 Monocytes/100 WBC (Bld) 9.6 % 0-10 [facility] Blood platelet mean volumeOr dered By: Asad Jamison on 11-15-2022 Platelet mean volume (Bld) [Entitic vol] 9.1 fL 6.2-12.0 [facility] Determination of erythrocyte mean corpuscular volume (MCV)Ordered By: Asad Jamisno on 11-15-2022 MCV (RBC) [Entitic vol] 87.9 fL 81-99 [facility] Hematocrit Auto (Bld) [Volum e fraction]Ordered By: Asad Jamison on 11-15-2022 Hematocrit (Bld) [Volume fraction] 48.7 % 37-47 [facility] Laboratory - Chemistry and C hemistry - challengeOrdered By: Asad Jamison on 11-15-2022 CO2 [Moles/Vol] 27.0 mmol/L 21.0-32.0 [facility] Urea nitrogen/Creatinine [Mass ratio] 35.6 mg/mg 10-20 [facility] Laboratory - Hematology and Cell countsOrdered By: Asad Jamison on 11-15-2022 Erythrocyte distribution width (RBC) [Entitic vol] 50.8 fL 35.1-43.9 [facility] Erythrocyte distribution width (RBC) [Ratio] 15.9 % 11.6-14.6 [facility] Immature granulocytes/100 WBC (Bld) 1.600 % 0.0-0.9 [facility] Comment on above: IG% - Immature Granu locytes (promyelocytes, myelocytes and metamyelocytes) > 1% indicates that a LEFT SHIFT is Present. MCH (RBC) [Entitic mass] 26.7 pg 27.0-32.0 [facility] Nucleated RBC/100 WBC (Bld) [Ratio] 0 % 0-5 [facility] MCHC Auto (RBC) [Mass/Vol]Or dered By: Asad Jamison on 11-15-2022 MCHC (RBC) [Mass/Vol] 30.4 g/dL 32-36 [facility] No Panel InformationOrdered By: Asad Jamison on 11-15-2022 Estimated GFR (MDRD) Amer 99 mL/min >60 [facility] Comment on above: GFR Calc Estimated GFR (MDRD) Non-Af Amer 81 mL/min >60 [facility] Comment on above: Non- GFR Calc Platelets bldOrdered By: Gonzales Jamison on 11-15-2022 Platelets (Bld) [#/Vol] 540 10*3/uL 150-450 [facility] Serum or plasma calcium jj urement (mass/volume)Ordered By: Asad Jamison on 11-15-2022 Calcium [Mass/Vol] 9.5 mg/dL 8.5-10.1 [facility] Serum or plasma creatinine m easurement (mass/volume)Ordered By: Asad Jamison on 11-15-2022 Creatinine [Mass/Vol] 0.76 mg/dL 0.55-1.02 [facility] Comment on above: The validity of the calculated GFR & GFRAA in patients over 70 years has not been determined. Clinical correlation is essential. Serum or plasma urea nitroge n measurement (mass/volume)Ordered By: Asad Jamison on 11-15-2022 Urea nitrogen [Mass/Vol] 27 mg/dL 7-18 [facility] Thin prep Papanicolaou smear with manual screeningOrdered By: Asad Jamison on 11-15-2022 Thin prep Papanicolaou smear with manual screening 8 5-15 [facility] Absolute lymphocyte countOrd ered By: Asad Jamison on 11-01-2022 Lymphocytes Auto (Unsp spec) [#/Vol] 0.81 10*3/uL 0.83-4.51 [facility] Basophil percentageOrdered B y: Asad Jamison on 11-01-2022 Basophils/100 WBC (Bld) 1.0 % 0-1 [facility] Chloride [Moles/Vol] 107 mmol/L 98-107 [facility] Eosinophils/100 WBC (Bld) 4.8 % 0-5 [facility] Glucose [Mass/Vol] 135 mg/dL 74-106 [facility] Comment on above: Fasting Glucose resu lt greater than or equal to 126 mg/dL suggests DIABETES MELLITUS per A.D.A. criteria. Neutrophils (Bld) [#/Vol] 5.9 10*3/uL 2.0-7.7 [facility] Neutrophils/100 WBC (Bld) 73.2 % 47-70 [facility] Potassium [Moles/Vol] 3.9 mmol/L 3.5-5.1 [facility] Sodium [Moles/Vol] 141 mmol/L 136-145 [facility] WBC (Bld) [#/Vol] 8.1 10*3/uL 4.4-11.0 [facility] Blood erythrocytes count (nu mber/volume)Ordered By: Asad Jamison on 11-01-2022 RBC (Bld) [#/Vol] 5.16 10*6/uL 4.2-5.4 [facility] Blood hemoglobin measurement (mass/volume)Ordered By: Asad Jamison on 11-01-2022 Hemoglobin (Bld) [Mass/Vol] 13.3 g/dL 12.0-15.0 [facility] Blood lymphocytes/100 leukoc ytesOrdered By: Asad Jamison on 11-01-2022 Lymphocytes/100 WBC (Bld) 10.0 % 19-41 [facility] Blood monocytes/100 leukocyt esOrdered By: Asad Jamison on 11-01-2022 Monocytes/100 WBC (Bld) 9.9 % 0-10 [facility] Blood platelet mean volumeOr dered By: Asad Jamison on 11-01-2022 Platelet mean volume (Bld) [Entitic vol] 8.9 fL 6.2-12.0 [facility] Determination of erythrocyte mean corpuscular volume (MCV)Ordered By: Asad Jamison on 11-01-2022 MCV (RBC) [Entitic vol] 87.4 fL 81-99 [facility] Hematocrit Auto (Bld) [Volum e fraction]Ordered By: Asad Jamison on 11-01-2022 Hematocrit (Bld) [Volume fraction] 45.1 % 37-47 [facility] Laboratory - Chemistry and C hemistry - challengeOrdered By: Asad Jamison on 11-01-2022 CO2 [Moles/Vol] 25.0 mmol/L 21.0-32.0 [facility] Urea nitrogen/Creatinine [Mass ratio] 32.7 mg/mg 10-20 [facility] Laboratory - Hematology and Cell countsOrdered By: Asad Jamison on 11-01-2022 Erythrocyte distribution width (RBC) [Entitic vol] 47.9 fL 35.1-43.9 [facility] Erythrocyte distribution width (RBC) [Ratio] 15.1 % 11.6-14.6 [facility] Immature granulocytes/100 WBC (Bld) 1.100 % 0.0-0.9 [facility] Comment on above: IG% - Immature Granu locytes (promyelocytes, myelocytes and metamyelocytes) > 1% indicates that a LEFT SHIFT is Present. MCH (RBC) [Entitic mass] 25.8 pg 27.0-32.0 [facility] Nucleated RBC/100 WBC (Bld) [Ratio] 0 % 0-5 [facility] MCHC Auto (RBC) [Mass/Vol]Or dered By: Asad Jamison on 11-01-2022 MCHC (RBC) [Mass/Vol] 29.5 g/dL 32-36 [facility] No Panel InformationOrdered By: Asad Jamison on 11-01-2022 Estimated GFR (MDRD) Amer 108 mL/min >60 [facility] Comment on above: GFR Calc Estimated GFR (MDRD) Non-Af Amer 89 mL/min >60 [facility] Comment on above: Non- GFR Calc Platelets bldOrdered By: Gonzales Jamison on 11-01-2022 Platelets (Bld) [#/Vol] 467 10*3/uL 150-450 [facility] Serum or plasma calcium jj urement (mass/volume)Ordered By: Asad Jamison on 11-01-2022 Calcium [Mass/Vol] 9.3 mg/dL 8.5-10.1 [facility] Serum or plasma creatinine m easurement (mass/volume)Ordered By: Asad Jamison on 11-01-2022 Creatinine [Mass/Vol] 0.70 mg/dL 0.55-1.02 [facility] Comment on above: The validity of the calculated GFR & GFRAA in patients over 70 years has not been determined. Clinical correlation is essential. Serum or plasma urea nitroge n measurement (mass/volume)Ordered By: Asad Jamison on 11-01-2022 Urea nitrogen [Mass/Vol] 23 mg/dL 7-18 [facility] Thin prep Papanicolaou smear with manual screeningOrdered By: Asad Jamison on 11-01-2022 Thin prep Papanicolaou smear with manual screening 9 5-15 [facility] Absolute lymphocyte countOrd ered By: Asad Jamison on 10-18-2022 Lymphocytes Auto (Unsp spec) [#/Vol] 1.14 10*3/uL 0.83-4.51 [facility] Basophil percentageOrdered B y: Asad Jamison on 10-18-2022 Basophils/100 WBC (Bld) 1.1 % 0-1 [facility] Chloride [Moles/Vol] 110 mmol/L 98-107 [facility] Eosinophils/100 WBC (Bld) 5.0 % 0-5 [facility] Glucose [Mass/Vol] 179 mg/dL 74-106 [facility] Comment on above: Fasting Glucose resu lt greater than or equal to 126 mg/dL suggests DIABETES MELLITUS per A.D.A. criteria. Neutrophils (Bld) [#/Vol] 6.5 10*3/uL 2.0-7.7 [facility] Neutrophils/100 WBC (Bld) 69.3 % 47-70 [facility] Potassium [Moles/Vol] 4.0 mmol/L 3.5-5.1 [facility] Sodium [Moles/Vol] 140 mmol/L 136-145 [facility] WBC (Bld) [#/Vol] 9.4 10*3/uL 4.4-11.0 [facility] Blood erythrocytes count (nu mber/volume)Ordered By: Asad Jamison on 10-18-2022 RBC (Bld) [#/Vol] 5.10 10*6/uL 4.2-5.4 [facility] Blood hemoglobin measurement (mass/volume)Ordered By: Asad Jamison on 10-18-2022 Hemoglobin (Bld) [Mass/Vol] 13.6 g/dL 12.0-15.0 [facility] Blood lymphocytes/100 leukoc ytesOrdered By: Asad Jamison on 10-18-2022 Lymphocytes/100 WBC (Bld) 12.1 % 19-41 [facility] Blood monocytes/100 leukocyt esOrdered By: Asad Jamison on 10-18-2022 Monocytes/100 WBC (Bld) 11.1 % 0-10 [facility] Blood platelet mean volumeOr dered By: Asad Jamison on 10-18-2022 Platelet mean volume (Bld) [Entitic vol] 8.6 fL 6.2-12.0 [facility] Determination of erythrocyte mean corpuscular volume (MCV)Ordered By: Asad Jamison on 10-18-2022 MCV (RBC) [Entitic vol] 87.5 fL 81-99 [facility] Hematocrit Auto (Bld) [Volum e fraction]Ordered By: Asad Jamison on 10-18-2022 Hematocrit (Bld) [Volume fraction] 44.6 % 37-47 [facility] Laboratory - Chemistry and C hemistry - challengeOrdered By: Asad Jamison on 10-18-2022 CO2 [Moles/Vol] 22.0 mmol/L 21.0-32.0 [facility] Urea nitrogen/Creatinine [Mass ratio] 28.1 mg/mg 10-20 [facility] Laboratory - Hematology and Cell countsOrdered By: Asad Jamison on 10-18-2022 Erythrocyte distribution width (RBC) [Entitic vol] 46.2 fL 35.1-43.9 [facility] Erythrocyte distribution width (RBC) [Ratio] 14.3 % 11.6-14.6 [facility] Immature granulocytes/100 WBC (Bld) 1.400 % 0.0-0.9 [facility] Comment on above: IG% - Immature Granu locytes (promyelocytes, myelocytes and metamyelocytes) > 1% indicates that a LEFT SHIFT is Present. MCH (RBC) [Entitic mass] 26.7 pg 27.0-32.0 [facility] Nucleated RBC/100 WBC (Bld) [Ratio] 0 % 0-5 [facility] MCHC Auto (RBC) [Mass/Vol]Or dered By: Asad Jamison on 10-18-2022 MCHC (RBC) [Mass/Vol] 30.5 g/dL 32-36 [facility] No Panel InformationOrdered By: Asad Jamison on 10-18-2022 Estimated GFR (MDRD) Amer 106 mL/min >60 [facility] Comment on above: GFR Calc Estimated GFR (MDRD) Non-Af Amer 88 mL/min >60 [facility] Comment on above: Non- GFR Calc Platelets bldOrdered By: Gonzales Jamison on 10-18-2022 Platelets (Bld) [#/Vol] 622 10*3/uL 150-450 [facility] Serum or plasma calcium jj urement (mass/volume)Ordered By: Asad Jamison on 10-18-2022 Calcium [Mass/Vol] 9.4 mg/dL 8.5-10.1 [facility] Serum or plasma creatinine m easurement (mass/volume)Ordered By: Asad Jamison on 10-18-2022 Creatinine [Mass/Vol] 0.71 mg/dL 0.55-1.02 [facility] Comment on above: The validity of the calculated GFR & GFRAA in patients over 70 years has not been determined. Clinical correlation is essential. Serum or plasma urea nitroge n measurement (mass/volume)Ordered By: Asad Jamison on 10-18-2022 Urea nitrogen [Mass/Vol] 20 mg/dL 7-18 [facility] Thin prep Papanicolaou smear with manual screeningOrdered By: Asda Jamison on 10-18-2022 Thin prep Papanicolaou smear with manual screening 8 5-15 [facility] Absolute lymphocyte countOrd ered By: Asad Jamison on 10-04-2022 Lymphocytes Auto (Unsp spec) [#/Vol] 1.09 10*3/uL 0.83-4.51 [facility] Basophil percentageOrdered B y: Asad Jamison on 10-04-2022 Basophils/100 WBC (Bld) 1.2 % 0-1 [facility] Chloride [Moles/Vol] 107 mmol/L 98-107 [facility] Eosinophils/100 WBC (Bld) 4.5 % 0-5 [facility] Glucose [Mass/Vol] 123 mg/dL 74-106 [facility] Comment on above: Fasting Glucose resu lt from 100 to 125 mg/dL suggests IMPAIRED HOMEOSTASIS per A.D.A. criteria. Neutrophils (Bld) [#/Vol] 6.5 10*3/uL 2.0-7.7 [facility] Neutrophils/100 WBC (Bld) 71.3 % 47-70 [facility] Potassium [Moles/Vol] 3.9 mmol/L 3.5-5.1 [facility] Sodium [Moles/Vol] 140 mmol/L 136-145 [facility] WBC (Bld) [#/Vol] 9.1 10*3/uL 4.4-11.0 [facility] Blood erythrocytes count (nu mber/volume)Ordered By: Asad Jamison on 10-04-2022 RBC (Bld) [#/Vol] 5.46 10*6/uL 4.2-5.4 [facility] Blood hemoglobin measurement (mass/volume)Ordered By: Asad Jamison on 10-04-2022 Hemoglobin (Bld) [Mass/Vol] 14.4 g/dL 12.0-15.0 [facility] Blood lymphocytes/100 leukoc ytesOrdered By: Asad Jamison on 10-04-2022 Lymphocytes/100 WBC (Bld) 12.0 % 19-41 [facility] Blood monocytes/100 leukocyt esOrdered By: Asad Jamison on 10-04-2022 Monocytes/100 WBC (Bld) 10.0 % 0-10 [facility] Blood platelet mean volumeOr dered By: Asad Jamison on 10-04-2022 Platelet mean volume (Bld) [Entitic vol] 8.4 fL 6.2-12.0 [facility] Determination of erythrocyte mean corpuscular volume (MCV)Ordered By: Asad Jamison on 10-04-2022 MCV (RBC) [Entitic vol] 86.1 fL 81-99 [facility] Hematocrit Auto (Bld) [Volum e fraction]Ordered By: Asad Jamison on 10-04-2022 Hematocrit (Bld) [Volume fraction] 47.0 % 37-47 [facility] Laboratory - Chemistry and C hemistry - challengeOrdered By: Asad Jamison on 10-04-2022 CO2 [Moles/Vol] 25.0 mmol/L 21.0-32.0 [facility] Urea nitrogen/Creatinine [Mass ratio] 34.6 mg/mg 10-20 [facility] Laboratory - Hematology and Cell countsOrdered By: Asad Jamison on 10-04-2022 Erythrocyte distribution width (RBC) [Entitic vol] 44.2 fL 35.1-43.9 [facility] Erythrocyte distribution width (RBC) [Ratio] 14.2 % 11.6-14.6 [facility] Immature granulocytes/100 WBC (Bld) 1.000 % 0.0-0.9 [facility] Comment on above: IG% - Immature Granu locytes (promyelocytes, myelocytes and metamyelocytes) > 1% indicates that a LEFT SHIFT is Present. MCH (RBC) [Entitic mass] 26.4 pg 27.0-32.0 [facility] Nucleated RBC/100 WBC (Bld) [Ratio] 0 % 0-5 [facility] MCHC Auto (RBC) [Mass/Vol]Or dered By: Asad Jamison on 10-04-2022 MCHC (RBC) [Mass/Vol] 30.6 g/dL 32-36 [facility] No Panel InformationOrdered By: Asad Jamison on 10-04-2022 Estimated GFR (MDRD) Amer 115 mL/min >60 [facility] Comment on above: GFR Calc Estimated GFR (MDRD) Non-Af Amer 95 mL/min >60 [facility] Comment on above: Non- GFR Calc Platelets bldOrdered By: Gonzales Jamison on 10-04-2022 Platelets (Bld) [#/Vol] 566 10*3/uL 150-450 [facility] Serum or plasma calcium jj urement (mass/volume)Ordered By: Asad Jamison on 10-04-2022 Calcium [Mass/Vol] 9.8 mg/dL 8.5-10.1 [facility] Serum or plasma creatinine m easurement (mass/volume)Ordered By: Asad Jamison on 10-04-2022 Creatinine [Mass/Vol] 0.66 mg/dL 0.55-1.02 [facility] Comment on above: The validity of the calculated GFR & GFRAA in patients over 70 years has not been determined. Clinical correlation is essential. Serum or plasma urea nitroge n measurement (mass/volume)Ordered By: Asad Jamison on 10-04-2022 Urea nitrogen [Mass/Vol] 23 mg/dL 7-18 [facility] Thin prep Papanicolaou smear with manual screeningOrdered By: Asad Jamison on 10-04-2022 Thin prep Papanicolaou smear with manual screening 8 5-15 [facility] Absolute lymphocyte countOrd ered By: Asad Jamison on 09-20-2022 Lymphocytes Auto (Unsp spec) [#/Vol] 1.20 10*3/uL 0.83-4.51 [facility] Basophil percentageOrdered B y: Asad Jamison on 09-20-2022 Basophils/100 WBC (Bld) 1.1 % 0-1 [facility] Chloride [Moles/Vol] 110 mmol/L 98-107 [facility] Eosinophils/100 WBC (Bld) 5.3 % 0-5 [facility] Glucose [Mass/Vol] 129 mg/dL 74-106 [facility] Comment on above: Fasting Glucose resu lt greater than or equal to 126 mg/dL suggests DIABETES MELLITUS per A.D.A. criteria. Neutrophils (Bld) [#/Vol] 7.2 10*3/uL 2.0-7.7 [facility] Neutrophils/100 WBC (Bld) 71.4 % 47-70 [facility] Potassium [Moles/Vol] 4.0 mmol/L 3.5-5.1 [facility] Sodium [Moles/Vol] 139 mmol/L 136-145 [facility] WBC (Bld) [#/Vol] 10.0 10*3/uL 4.4-11.0 [facility] Blood erythrocytes count (nu mber/volume)Ordered By: Asad Jamison on 09-20-2022 RBC (Bld) [#/Vol] 4.97 10*6/uL 4.2-5.4 [facility] Blood hemoglobin measurement (mass/volume)Ordered By: Asad Jamison on 09-20-2022 Hemoglobin (Bld) [Mass/Vol] 13.4 g/dL 12.0-15.0 [facility] Blood lymphocytes/100 leukoc ytesOrdered By: Asad Jamison on 09-20-2022 Lymphocytes/100 WBC (Bld) 12.0 % 19-41 [facility] Blood monocytes/100 leukocyt esOrdered By: Asad Jamison on 09-20-2022 Monocytes/100 WBC (Bld) 9.3 % 0-10 [facility] Blood platelet mean volumeOr dered By: Asad Jamison on 09-20-2022 Platelet mean volume (Bld) [Entitic vol] 8.7 fL 6.2-12.0 [facility] Determination of erythrocyte mean corpuscular volume (MCV)Ordered By: Asad Jamison on 09-20-2022 MCV (RBC) [Entitic vol] 88.3 fL 81-99 [facility] Hematocrit Auto (Bld) [Volum e fraction]Ordered By: Asad Jamison on 09-20-2022 Hematocrit (Bld) [Volume fraction] 43.9 % 37-47 [facility] Laboratory - Chemistry and C hemistry - challengeOrdered By: Asad Jamison on 09-20-2022 CO2 [Moles/Vol] 25.0 mmol/L 21.0-32.0 [facility] Urea nitrogen/Creatinine [Mass ratio] 41.7 mg/mg 10-20 [facility] Laboratory - Hematology and Cell countsOrdered By: Asad Jamison on 09-20-2022 Erythrocyte distribution width (RBC) [Entitic vol] 45.1 fL 35.1-43.9 [facility] Erythrocyte distribution width (RBC) [Ratio] 14.2 % 11.6-14.6 [facility] Immature granulocytes/100 WBC (Bld) 0.900 % 0.0-0.9 [facility] Comment on above: IG% - Immature Granu locytes (promyelocytes, myelocytes and metamyelocytes) > 1% indicates that a LEFT SHIFT is Present. MCH (RBC) [Entitic mass] 27.0 pg 27.0-32.0 [facility] Nucleated RBC/100 WBC (Bld) [Ratio] 0 % 0-5 [facility] MCHC Auto (RBC) [Mass/Vol]Or dered By: Asad Jamison on 09-20-2022 MCHC (RBC) [Mass/Vol] 30.5 g/dL 32-36 [facility] No Panel InformationOrdered By: Asad Jamison on 09-20-2022 Estimated GFR (MDRD) Amer 129 mL/min >60 [facility] Comment on above: GFR Calc Estimated GFR (MDRD) Non-Af Amer 107 mL/min >60 [facility] Comment on above: Non- GFR Calc Platelets bldOrdered By: Gonzales Jamison on 09-20-2022 Platelets (Bld) [#/Vol] 533 10*3/uL 150-450 [facility] Serum or plasma calcium jj urement (mass/volume)Ordered By: Asad Jamison on 09-20-2022 Calcium [Mass/Vol] 9.4 mg/dL 8.5-10.1 [facility] Serum or plasma creatinine m easurement (mass/volume)Ordered By: Asad Jamison on 09-20-2022 Creatinine [Mass/Vol] 0.60 mg/dL 0.55-1.02 [facility] Comment on above: The validity of the calculated GFR & GFRAA in patients over 70 years has not been determined. Clinical correlation is essential. Serum or plasma urea nitroge n measurement (mass/volume)Ordered By: Asad Jamison on 09-20-2022 Urea nitrogen [Mass/Vol] 25 mg/dL 7-18 [facility] Thin prep Papanicolaou smear with manual screeningOrdered By: Asad Jamison on 09-20-2022 Thin prep Papanicolaou smear with manual screening 4 5-15 [facility] Absolute lymphocyte countOrd ered By: Asad Jamison on 09-06-2022 Lymphocytes Auto (Unsp spec) [#/Vol] 0.97 10*3/uL 0.83-4.51 [facility] Basophil percentageOrdered B y: Asad Jamison on 09-06-2022 Basophils/100 WBC (Bld) 1.0 % 0-1 [facility] Chloride [Moles/Vol] 107 mmol/L 98-107 [facility] Eosinophils/100 WBC (Bld) 4.5 % 0-5 [facility] Glucose [Mass/Vol] 112 mg/dL 74-106 [facility] Comment on above: Fasting Glucose resu lt from 100 to 125 mg/dL suggests IMPAIRED HOMEOSTASIS per A.D.A. criteria. Neutrophils (Bld) [#/Vol] 6.2 10*3/uL 2.0-7.7 [facility] Neutrophils/100 WBC (Bld) 72.2 % 47-70 [facility] Potassium [Moles/Vol] 3.7 mmol/L 3.5-5.1 [facility] Sodium [Moles/Vol] 138 mmol/L 136-145 [facility] WBC (Bld) [#/Vol] 8.6 10*3/uL 4.4-11.0 [facility] Blood erythrocytes count (nu mber/volume)Ordered By: Asad Jamison on 09-06-2022 RBC (Bld) [#/Vol] 5.05 10*6/uL 4.2-5.4 [facility] Blood hemoglobin measurement (mass/volume)Ordered By: Asad Jamison on 09-06-2022 Hemoglobin (Bld) [Mass/Vol] 13.6 g/dL 12.0-15.0 [facility] Blood lymphocytes/100 leukoc ytesOrdered By: Asad Jamison on 09-06-2022 Lymphocytes/100 WBC (Bld) 11.3 % 19-41 [facility] Blood monocytes/100 leukocyt esOrdered By: Asad Jamison on 09-06-2022 Monocytes/100 WBC (Bld) 10.4 % 0-10 [facility] Blood platelet mean volumeOr dered By: Asad Jamison on 09-06-2022 Platelet mean volume (Bld) [Entitic vol] 8.4 fL 6.2-12.0 [facility] Determination of erythrocyte mean corpuscular volume (MCV)Ordered By: Asad Jamison on 09-06-2022 MCV (RBC) [Entitic vol] 87.7 fL 81-99 [facility] Hematocrit Auto (Bld) [Volum e fraction]Ordered By: Asad Jamison on 09-06-2022 Hematocrit (Bld) [Volume fraction] 44.3 % 37-47 [facility] Laboratory - Chemistry and C hemistry - challengeOrdered By: Asad Jamison on 09-06-2022 CO2 [Moles/Vol] 25.0 mmol/L 21.0-32.0 [facility] Urea nitrogen/Creatinine [Mass ratio] 30.4 mg/mg 10-20 [facility] Laboratory - Hematology and Cell countsOrdered By: Asad Jamison on 09-06-2022 Erythrocyte distribution width (RBC) [Entitic vol] 45.9 fL 35.1-43.9 [facility] Erythrocyte distribution width (RBC) [Ratio] 14.3 % 11.6-14.6 [facility] Immature granulocytes/100 WBC (Bld) 0.600 % 0.0-0.9 [facility] Comment on above: IG% - Immature Granu locytes (promyelocytes, myelocytes and metamyelocytes) > 1% indicates that a LEFT SHIFT is Present. MCH (RBC) [Entitic mass] 26.9 pg 27.0-32.0 [facility] Nucleated RBC/100 WBC (Bld) [Ratio] 0 % 0-5 [facility] MCHC Auto (RBC) [Mass/Vol]Or dered By: Asad Jamison on 09-06-2022 MCHC (RBC) [Mass/Vol] 30.7 g/dL 32-36 [facility] No Panel InformationOrdered By: Asad Jamisno on 09-06-2022 Estimated GFR (MDRD) Amer 116 mL/min >60 [facility] Comment on above: GFR Calc Estimated GFR (MDRD) Non-Af Amer 96 mL/min >60 [facility] Comment on above: Non- GFR Calc Platelets bldOrdered By: Gonzales Jamison on 09-06-2022 Platelets (Bld) [#/Vol] 484 10*3/uL 150-450 [facility] Serum or plasma calcium jj urement (mass/volume)Ordered By: Asad Jamison on 09-06-2022 Calcium [Mass/Vol] 9.4 mg/dL 8.5-10.1 [facility] Serum or plasma creatinine m easurement (mass/volume)Ordered By: Asad Jamison on 09-06-2022 Creatinine [Mass/Vol] 0.66 mg/dL 0.55-1.02 [facility] Comment on above: The validity of the calculated GFR & GFRAA in patients over 70 years has not been determined. Clinical correlation is essential. Serum or plasma urea nitroge n measurement (mass/volume)Ordered By: Asad Jamison on 09-06-2022 Urea nitrogen [Mass/Vol] 20 mg/dL 7-18 [facility] Thin prep Papanicolaou smear with manual screeningOrdered By: Asad Jamison on 09-06-2022 Thin prep Papanicolaou smear with manual screening 6 5-15 [facility] Absolute lymphocyte countOrd ered By: Asad Jamison on 08-23-2022 Lymphocytes Auto (Unsp spec) [#/Vol] 1.01 10*3/uL 0.83-4.51 [facility] Basophil percentageOrdered B y: Asad Jamison on 08-23-2022 Basophils/100 WBC (Bld) 1.6 % 0-1 [facility] Chloride [Moles/Vol] 106 mmol/L 98-107 [facility] Eosinophils/100 WBC (Bld) 5.7 % 0-5 [facility] Glucose [Mass/Vol] 129 mg/dL 74-106 [facility] Comment on above: Fasting Glucose resu lt greater than or equal to 126 mg/dL suggests DIABETES MELLITUS per A.D.A. criteria. Neutrophils (Bld) [#/Vol] 4.6 10*3/uL 2.0-7.7 [facility] Neutrophils/100 WBC (Bld) 65.1 % 47-70 [facility] Potassium [Moles/Vol] 4.1 mmol/L 3.5-5.1 [facility] Sodium [Moles/Vol] 141 mmol/L 136-145 [facility] WBC (Bld) [#/Vol] 7.0 10*3/uL 4.4-11.0 [facility] Blood erythrocytes count (nu mber/volume)Ordered By: Asad Jamison on 08-23-2022 RBC (Bld) [#/Vol] 5.08 10*6/uL 4.2-5.4 [facility] Blood hemoglobin measurement (mass/volume)Ordered By: Asad Jamison on 08-23-2022 Hemoglobin (Bld) [Mass/Vol] 13.7 g/dL 12.0-15.0 [facility] Blood lymphocytes/100 leukoc ytesOrdered By: Asad Jamison on 08-23-2022 Lymphocytes/100 WBC (Bld) 14.4 % 19-41 [facility] Blood monocytes/100 leukocyt esOrdered By: Asad Jamison on 08-23-2022 Monocytes/100 WBC (Bld) 12.5 % 0-10 [facility] Blood platelet mean volumeOr dered By: Asad Jamison on 08-23-2022 Platelet mean volume (Bld) [Entitic vol] 9.1 fL 6.2-12.0 [facility] Determination of erythrocyte mean corpuscular volume (MCV)Ordered By: Asad Jamison on 08-23-2022 MCV (RBC) [Entitic vol] 88.4 fL 81-99 [facility] Hematocrit Auto (Bld) [Volum e fraction]Ordered By: Asad Jamison on 08-23-2022 Hematocrit (Bld) [Volume fraction] 44.9 % 37-47 [facility] Laboratory - Chemistry and C hemistry - challengeOrdered By: Asad Jamison on 08-23-2022 CO2 [Moles/Vol] 26.0 mmol/L 21.0-32.0 [facility] Urea nitrogen/Creatinine [Mass ratio] 38.0 mg/mg 10-20 [facility] Laboratory - Hematology and Cell countsOrdered By: Asad Jamison on 08-23-2022 Erythrocyte distribution width (RBC) [Entitic vol] 45.2 fL 35.1-43.9 [facility] Erythrocyte distribution width (RBC) [Ratio] 14.1 % 11.6-14.6 [facility] Immature granulocytes/100 WBC (Bld) 0.700 % 0.0-0.9 [facility] Comment on above: IG% - Immature Granu locytes (promyelocytes, myelocytes and metamyelocytes) > 1% indicates that a LEFT SHIFT is Present. MCH (RBC) [Entitic mass] 27.0 pg 27.0-32.0 [facility] Nucleated RBC/100 WBC (Bld) [Ratio] 0 % 0-5 [facility] MCHC Auto (RBC) [Mass/Vol]Or dered By: Asad Jamison on 08-23-2022 MCHC (RBC) [Mass/Vol] 30.5 g/dL 32-36 [facility] No Panel InformationOrdered By: Asad Jamison on 08-23-2022 Estimated GFR (MDRD) Amer 128 mL/min >60 [facility] Comment on above: GFR Calc Estimated GFR (MDRD) Non-Af Amer 106 mL/min >60 [facility] Comment on above: Non- GFR Calc Platelets bldOrdered By: Gonzales Jamison on 08-23-2022 Platelets (Bld) [#/Vol] 504 10*3/uL 150-450 [facility] Serum or plasma calcium jj urement (mass/volume)Ordered By: Asad Jamison on 08-23-2022 Calcium [Mass/Vol] 9.5 mg/dL 8.5-10.1 [facility] Serum or plasma creatinine m easurement (mass/volume)Ordered By: Asad Jamison on 08-23-2022 Creatinine [Mass/Vol] 0.60 mg/dL 0.55-1.02 [facility] Comment on above: The validity of the calculated GFR & GFRAA in patients over 70 years has not been determined. Clinical correlation is essential. Serum or plasma urea nitroge n measurement (mass/volume)Ordered By: Asad Jamison on 08-23-2022 Urea nitrogen [Mass/Vol] 23 mg/dL 7-18 [facility] Thin prep Papanicolaou smear with manual screeningOrdered By: Asad Jamison on 08-23-2022 Thin prep Papanicolaou smear with manual screening 9 5-15 [facility] Absolute lymphocyte countOrd ered By: Breanne Ruiz on 08-09-2022 Lymphocytes Auto (Unsp spec) [#/Vol] 1.01 10*3/uL 0.83-4.51 [facility] Basophil percentageOrdered B y: Breanne Ruiz on 08-09-2022 Basophils/100 WBC (Bld) 1.0 % 0-1 [facility] Chloride [Moles/Vol] 106 mmol/L 98-107 [facility] Eosinophils/100 WBC (Bld) 5.8 % 0-5 [facility] Glucose [Mass/Vol] 117 mg/dL 74-106 [facility] Comment on above: Fasting Glucose resu lt from 100 to 125 mg/dL suggests IMPAIRED HOMEOSTASIS per A.D.A. criteria. Neutrophils (Bld) [#/Vol] 5.8 10*3/uL 2.0-7.7 [facility] Neutrophils/100 WBC (Bld) 69.6 % 47-70 [facility] Potassium [Moles/Vol] 4.1 mmol/L 3.5-5.1 [facility] Comment on above: Slight Hemolysis, Re sult may be falsely increased. Sodium [Moles/Vol] 138 mmol/L 136-145 [facility] WBC (Bld) [#/Vol] 8.3 10*3/uL 4.4-11.0 [facility] Blood erythrocytes count (nu mber/volume)Ordered By: Breanne Ruiz on 08-09-2022 RBC (Bld) [#/Vol] 4.96 10*6/uL 4.2-5.4 [facility] Blood hemoglobin measurement (mass/volume)Ordered By: Breanne Ruiz on 08-09-2022 Hemoglobin (Bld) [Mass/Vol] 13.3 g/dL 12.0-15.0 [facility] Blood lymphocytes/100 leukoc ytesOrdered By: Breanne Ruiz on 08-09-2022 Lymphocytes/100 WBC (Bld) 12.2 % 19-41 [facility] Blood monocytes/100 leukocyt esOrdered By: vannessa Ruiz on 08-09-2022 Monocytes/100 WBC (Bld) 10.8 % 0-10 [facility] Blood platelet mean volumeOr dered By: Breanne Ruiz on 08-09-2022 Platelet mean volume (Bld) [Entitic vol] 9.0 fL 6.2-12.0 [facility] Determination of erythrocyte mean corpuscular volume (MCV)Ordered By: Abbiewittenchetan Ruiz on 08-09-2022 MCV (RBC) [Entitic vol] 89.3 fL 81-99 [facility] Hematocrit Auto (Bld) [Volum e fraction]Ordered By: Breanne Ruiz on 08-09-2022 Hematocrit (Bld) [Volume fraction] 44.3 % 37-47 [facility] Laboratory - Chemistry and C hemistry - challengeOrdered By: [facility]an Ruiz on 08-09-2022 CO2 [Moles/Vol] 23.0 mmol/L 21.0-32.0 [facility] Urea nitrogen/Creatinine [Mass ratio] 38.2 mg/mg 10-20 [facility] Laboratory - Hematology and Cell countsOrdered By: Breanne Ruiz on 08-09-2022 Erythrocyte distribution width (RBC) [Entitic vol] 46.2 fL 35.1-43.9 [facility] Erythrocyte distribution width (RBC) [Ratio] 14.2 % 11.6-14.6 [facility] Immature granulocytes/100 WBC (Bld) 0.600 % 0.0-0.9 [facility] Comment on above: IG% - Immature Granu locytes (promyelocytes, myelocytes and metamyelocytes) > 1% indicates that a LEFT SHIFT is Present. MCH (RBC) [Entitic mass] 26.8 pg 27.0-32.0 [facility] Nucleated RBC/100 WBC (Bld) [Ratio] 0 % 0-5 [facility] MCHC Auto (RBC) [Mass/Vol]Or dered By: Breanne Ruiz on 08-09-2022 MCHC (RBC) [Mass/Vol] 30.0 g/dL 32-36 [facility] No Panel InformationOrdered By: Breanne Ruiz on 08-09-2022 Estimated GFR (MDRD) Amer 122 mL/min >60 [facility] Comment on above: GFR Calc Estimated GFR (MDRD) Non-Af Amer 101 mL/min >60 [facility] Comment on above: Non- GFR Calc Platelets bldOrdered By: Prashant Ruiz on 08-09-2022 Platelets (Bld) [#/Vol] 463 10*3/uL 150-450 [facility] Serum or plasma calcium jj urement (mass/volume)Ordered By: Breanne Ruiz on 08-09-2022 Calcium [Mass/Vol] 9.5 mg/dL 8.5-10.1 [facility] Serum or plasma creatinine m easurement (mass/volume)Ordered By: Breanne Ruiz on 08-09-2022 Creatinine [Mass/Vol] 0.63 mg/dL 0.55-1.02 [facility] Comment on above: The validity of the calculated GFR & GFRAA in patients over 70 years has not been determined. Clinical correlation is essential. Serum or plasma urea nitroge n measurement (mass/volume)Ordered By: Breanne Ruiz on 08-09-2022 Urea nitrogen [Mass/Vol] 24 mg/dL 7-18 [facility] Thin prep Papanicolaou smear with manual screeningOrdered By: Breanne Ruiz on 08-09-2022 Thin prep Papanicolaou smear with manual screening 9 5-15 [facility] Absolute lymphocyte countOrd ered By: Breanne Ruiz on 07-26-2022 Lymphocytes Auto (Unsp spec) [#/Vol] 1.12 10*3/uL 0.83-4.51 [facility] Basophil percentageOrdered B y: Breanne Ruiz on 07-26-2022 Basophils/100 WBC (Bld) 1.7 % 0-1 [facility] Chloride [Moles/Vol] 109 mmol/L 98-107 [facility] Eosinophils/100 WBC (Bld) 6.3 % 0-5 [facility] Glucose [Mass/Vol] 110 mg/dL 74-106 [facility] Comment on above: Fasting Glucose resu lt from 100 to 125 mg/dL suggests IMPAIRED HOMEOSTASIS per A.D.A. criteria. Neutrophils (Bld) [#/Vol] 4.2 10*3/uL 2.0-7.7 [facility] Neutrophils/100 WBC (Bld) 62.5 % 47-70 [facility] Potassium [Moles/Vol] 4.1 mmol/L 3.5-5.1 [facility] Sodium [Moles/Vol] 143 mmol/L 136-145 [facility] WBC (Bld) [#/Vol] 6.6 10*3/uL 4.4-11.0 [facility] Blood erythrocytes count (nu mber/volume)Ordered By: Breanne Ruiz on 07-26-2022 RBC (Bld) [#/Vol] 4.98 10*6/uL 4.2-5.4 [facility] Blood hemoglobin measurement (mass/volume)Ordered By: Breanne Ruiz on 07-26-2022 Hemoglobin (Bld) [Mass/Vol] 13.4 g/dL 12.0-15.0 [facility] Blood lymphocytes/100 leukoc ytesOrdered By: Breanne Ruiz on 07-26-2022 Lymphocytes/100 WBC (Bld) 16.9 % 19-41 [facility] Blood monocytes/100 leukocyt esOrdered By: Breanne Ruiz on 07-26-2022 Monocytes/100 WBC (Bld) 11.5 % 0-10 [facility] Blood platelet mean volumeOr dered By: Breanne Ruiz on 07-26-2022 Platelet mean volume (Bld) [Entitic vol] 8.9 fL 6.2-12.0 [facility] Determination of erythrocyte mean corpuscular volume (MCV)Ordered By: Breanne Ruiz on 07-26-2022 MCV (RBC) [Entitic vol] 90.6 fL 81-99 [facility] Hematocrit Auto (Bld) [Volum e fraction]Ordered By: Breanne Ruiz on 07-26-2022 Hematocrit (Bld) [Volume fraction] 45.1 % 37-47 [facility] Laboratory - Chemistry and C hemistry - challengeOrdered By: Breanne Ruiz on 07-26-2022 CO2 [Moles/Vol] 25.0 mmol/L 21.0-32.0 [facility] Urea nitrogen/Creatinine [Mass ratio] 48.5 mg/mg 10-20 [facility] Laboratory - Hematology and Cell countsOrdered By: Breanne Ruiz on 07-26-2022 Erythrocyte distribution width (RBC) [Entitic vol] 48.2 fL 35.1-43.9 [facility] Erythrocyte distribution width (RBC) [Ratio] 14.5 % 11.6-14.6 [facility] Immature granulocytes/100 WBC (Bld) 1.100 % 0.0-0.9 [facility] Comment on above: IG% - Immature Granu locytes (promyelocytes, myelocytes and metamyelocytes) > 1% indicates that a LEFT SHIFT is Present. MCH (RBC) [Entitic mass] 26.9 pg 27.0-32.0 [facility] Nucleated RBC/100 WBC (Bld) [Ratio] 0 % 0-5 [facility] MCHC Auto (RBC) [Mass/Vol]Or dered By: Breanne Ruiz on 07-26-2022 MCHC (RBC) [Mass/Vol] 29.7 g/dL 32-36 [facility] No Panel InformationOrdered By: Breanne Ruiz on 07-26-2022 Estimated GFR (MDRD) Amer 116 mL/min >60 [facility] Comment on above: GFR Calc Estimated GFR (MDRD) Non-Af Amer 96 mL/min >60 [facility] Comment on above: Non- GFR Calc Platelets bldOrdered By: Prashant Ruiz on 07-26-2022 Platelets (Bld) [#/Vol] 464 10*3/uL 150-450 [facility] Serum or plasma calcium jj urement (mass/volume)Ordered By: Breanne Ruiz on 07-26-2022 Calcium [Mass/Vol] 9.7 mg/dL 8.5-10.1 [facility] Serum or plasma creatinine m easurement (mass/volume)Ordered By: Breanne Ruiz on 07-26-2022 Creatinine [Mass/Vol] 0.66 mg/dL 0.55-1.02 [facility] Comment on above: The validity of the calculated GFR & GFRAA in patients over 70 years has not been determined. Clinical correlation is essential. Serum or plasma urea nitroge n measurement (mass/volume)Ordered By: [facility]an Ruiz on 07-26-2022 Urea nitrogen [Mass/Vol] 32 mg/dL 7-18 [facility] Thin prep Papanicolaou smear with manual screeningOrdered By: [facility] Ruiz on 07-26-2022 Thin prep Papanicolaou smear with manual screening 9 5-15 [facility] Whole blood hemoglobin A1c/t otal hemoglobin ratio (mass fraction)Ordered By: Breanne Ruiz on 07-13-2022 HbA1c (Bld) [Mass fraction] 5.8 % 3.8-5.6 [facility] Comment on above: Normal < 5.7 % Predi abetic 5.7 - 6.4 % Diabetic >or= 6.5 % Please note range changes. Absolute lymphocyte countOrd ered By: Asad Jamison on 07-12-2022 Lymphocytes Auto (Unsp spec) [#/Vol] 1.16 10*3/uL 0.83-4.51 [facility] Basophil percentageOrdered B y: Asad Jamison on 07-12-2022 Basophils/100 WBC (Bld) 1.4 % 0-1 [facility] Chloride [Moles/Vol] 107 mmol/L 98-107 [facility] Eosinophils/100 WBC (Bld) 4.3 % 0-5 [facility] Glucose [Mass/Vol] 148 mg/dL 74-106 [facility] Comment on above: Fasting Glucose resu lt greater than or equal to 126 mg/dL suggests DIABETES MELLITUS per A.D.A. criteria. Neutrophils (Bld) [#/Vol] 5.3 10*3/uL 2.0-7.7 [facility] Neutrophils/100 WBC (Bld) 69.0 % 47-70 [facility] Potassium [Moles/Vol] 3.9 mmol/L 3.5-5.1 [facility] Sodium [Moles/Vol] 142 mmol/L 136-145 [facility] WBC (Bld) [#/Vol] 7.7 10*3/uL 4.4-11.0 [facility] Blood erythrocytes count (nu mber/volume)Ordered By: Asad Jamison on 07-12-2022 RBC (Bld) [#/Vol] 4.99 10*6/uL 4.2-5.4 [facility] Blood hemoglobin measurement (mass/volume)Ordered By: Asad Jamison on 07-12-2022 Hemoglobin (Bld) [Mass/Vol] 13.4 g/dL 12.0-15.0 [facility] Blood lymphocytes/100 leukoc ytesOrdered By: Asad Jamison on 07-12-2022 Lymphocytes/100 WBC (Bld) 15.0 % 19-41 [facility] Blood monocytes/100 leukocyt esOrdered By: Asad Jamison on 07-12-2022 Monocytes/100 WBC (Bld) 9.8 % 0-10 [facility] Blood platelet mean volumeOr dered By: Asad Jamison on 07-12-2022 Platelet mean volume (Bld) [Entitic vol] 8.6 fL 6.2-12.0 [facility] Determination of erythrocyte mean corpuscular volume (MCV)Ordered By: Asad Jamison on 07-12-2022 MCV (RBC) [Entitic vol] 88.4 fL 81-99 [facility] Hematocrit Auto (Bld) [Volum e fraction]Ordered By: Asad Jamison on 07-12-2022 Hematocrit (Bld) [Volume fraction] 44.1 % 37-47 [facility] Laboratory - Chemistry and C hemistry - challengeOrdered By: Asad Jamison on 07-12-2022 CO2 [Moles/Vol] 27.0 mmol/L 21.0-32.0 [facility] Urea nitrogen/Creatinine [Mass ratio] 36.2 mg/mg 10-20 [facility] Laboratory - Hematology and Cell countsOrdered By: Asad Jamison on 07-12-2022 Erythrocyte distribution width (RBC) [Entitic vol] 46.5 fL 35.1-43.9 [facility] Erythrocyte distribution width (RBC) [Ratio] 14.4 % 11.6-14.6 [facility] Immature granulocytes/100 WBC (Bld) 0.500 % 0.0-0.9 [facility] Comment on above: IG% - Immature Granu locytes (promyelocytes, myelocytes and metamyelocytes) > 1% indicates that a LEFT SHIFT is Present. MCH (RBC) [Entitic mass] 26.9 pg 27.0-32.0 [facility] Nucleated RBC/100 WBC (Bld) [Ratio] 0 % 0-5 [facility] MCHC Auto (RBC) [Mass/Vol]Or dered By: Asad Jamison on 07-12-2022 MCHC (RBC) [Mass/Vol] 30.4 g/dL 32-36 [facility] No Panel InformationOrdered By: Asad Jamison on 07-12-2022 Estimated GFR (MDRD) Amer 101 mL/min >60 [facility] Comment on above: GFR Calc Estimated GFR (MDRD) Non-Af Amer 83 mL/min >60 [facility] Comment on above: Non- GFR Calc Platelets bldOrdered By: Gonzales Jamison on 07-12-2022 Platelets (Bld) [#/Vol] 491 10*3/uL 150-450 [facility] Serum or plasma calcium jj urement (mass/volume)Ordered By: Asad Jamison on 07-12-2022 Calcium [Mass/Vol] 9.7 mg/dL 8.5-10.1 [facility] Serum or plasma creatinine m easurement (mass/volume)Ordered By: Asad Jamison on 07-12-2022 Creatinine [Mass/Vol] 0.74 mg/dL 0.55-1.02 [facility] Comment on above: The validity of the calculated GFR & GFRAA in patients over 70 years has not been determined. Clinical correlation is essential. Serum or plasma urea nitroge n measurement (mass/volume)Ordered By: Asad Jamison on 07-12-2022 Urea nitrogen [Mass/Vol] 27 mg/dL 7-18 [facility] Thin prep Papanicolaou smear with manual screeningOrdered By: Asad Jamison on 07-12-2022 Thin prep Papanicolaou smear with manual screening 8 5-15 [facility] Absolute lymphocyte countOrd ered By: Asad Jamison on 06-28-2022 Lymphocytes Auto (Unsp spec) [#/Vol] 1.41 10*3/uL 0.83-4.51 [facility] Basophil percentageOrdered B y: Asad Jamison on 06-28-2022 Basophils/100 WBC (Bld) 1.7 % 0-1 [facility] Chloride [Moles/Vol] 108 mmol/L 98-107 [facility] Eosinophils/100 WBC (Bld) 6.8 % 0-5 [facility] Glucose [Mass/Vol] 117 mg/dL 74-106 [facility] Comment on above: Fasting Glucose resu lt from 100 to 125 mg/dL suggests IMPAIRED HOMEOSTASIS per A.D.A. criteria. Neutrophils (Bld) [#/Vol] 3.8 10*3/uL 2.0-7.7 [facility] Neutrophils/100 WBC (Bld) 56.9 % 47-70 [facility] Potassium [Moles/Vol] 4.0 mmol/L 3.5-5.1 [facility] Sodium [Moles/Vol] 142 mmol/L 136-145 [facility] WBC (Bld) [#/Vol] 6.7 10*3/uL 4.4-11.0 [facility] Blood erythrocytes count (nu mber/volume)Ordered By: Asad Jamison on 06-28-2022 RBC (Bld) [#/Vol] 4.72 10*6/uL 4.2-5.4 [facility] Blood hemoglobin measurement (mass/volume)Ordered By: Asad Jamison on 06-28-2022 Hemoglobin (Bld) [Mass/Vol] 12.8 g/dL 12.0-15.0 [facility] Blood lymphocytes/100 leukoc ytesOrdered By: Asad Jamison on 06-28-2022 Lymphocytes/100 WBC (Bld) 21.2 % 19-41 [facility] Blood monocytes/100 leukocyt esOrdered By: Asad Jamison on 06-28-2022 Monocytes/100 WBC (Bld) 12.5 % 0-10 [facility] Blood platelet mean volumeOr dered By: Asad Jamison on 06-28-2022 Platelet mean volume (Bld) [Entitic vol] 9.0 fL 6.2-12.0 [facility] Determination of erythrocyte mean corpuscular volume (MCV)Ordered By: Asad Jamison on 06-28-2022 MCV (RBC) [Entitic vol] 90.7 fL 81-99 [facility] Hematocrit Auto (Bld) [Volum e fraction]Ordered By: Asad Jamison on 06-28-2022 Hematocrit (Bld) [Volume fraction] 42.8 % 37-47 [facility] Laboratory - Chemistry and C hemistry - challengeOrdered By: Asad Jamison on 06-28-2022 CO2 [Moles/Vol] 24.0 mmol/L 21.0-32.0 [facility] Urea nitrogen/Creatinine [Mass ratio] 39.1 mg/mg 10-20 [facility] Laboratory - Hematology and Cell countsOrdered By: Asad Jamison on 06-28-2022 Erythrocyte distribution width (RBC) [Entitic vol] 48.6 fL 35.1-43.9 [facility] Erythrocyte distribution width (RBC) [Ratio] 14.6 % 11.6-14.6 [facility] Immature granulocytes/100 WBC (Bld) 0.900 % 0.0-0.9 [facility] Comment on above: IG% - Immature Granu locytes (promyelocytes, myelocytes and metamyelocytes) > 1% indicates that a LEFT SHIFT is Present. MCH (RBC) [Entitic mass] 27.1 pg 27.0-32.0 [facility] Nucleated RBC/100 WBC (Bld) [Ratio] 0 % 0-5 [facility] MCHC Auto (RBC) [Mass/Vol]Or dered By: Asad Jamison on 06-28-2022 MCHC (RBC) [Mass/Vol] 29.9 g/dL 32-36 [facility] No Panel InformationOrdered By: Asad Jamison on 06-28-2022 Estimated GFR (MDRD) Amer 115 mL/min >60 [facility] Comment on above: GFR Calc Estimated GFR (MDRD) Non-Af Amer 95 mL/min >60 [facility] Comment on above: Non- GFR Calc Platelets bldOrdered By: Gonzales Jamison on 06-28-2022 Platelets (Bld) [#/Vol] 481 10*3/uL 150-450 [facility] Serum or plasma calcium jj urement (mass/volume)Ordered By: Asad Jamison on 06-28-2022 Calcium [Mass/Vol] 9.4 mg/dL 8.5-10.1 [facility] Serum or plasma creatinine m easurement (mass/volume)Ordered By: Asad Jamison on 06-28-2022 Creatinine [Mass/Vol] 0.66 mg/dL 0.55-1.02 [facility] Comment on above: The validity of the calculated GFR & GFRAA in patients over 70 years has not been determined. Clinical correlation is essential. Serum or plasma urea nitroge n measurement (mass/volume)Ordered By: Asad Jamison on 06-28-2022 Urea nitrogen [Mass/Vol] 26 mg/dL 7-18 [facility] Thin prep Papanicolaou smear with manual screeningOrdered By: Asad Jamison on 06-28-2022 Thin prep Papanicolaou smear with manual screening 10 5-15 [facility] Absolute lymphocyte countOrd ered By: Asad Jamison on 06-14-2022 Lymphocytes Auto (Unsp spec) [#/Vol] 1.27 10*3/uL 0.83-4.51 [facility] Basophil percentageOrdered B y: Asad Jamison on 06-14-2022 Basophils/100 WBC (Bld) 1.3 % 0-1 [facility] Chloride [Moles/Vol] 111 mmol/L 98-107 [facility] Eosinophils/100 WBC (Bld) 3.9 % 0-5 [facility] Glucose [Mass/Vol] 123 mg/dL 74-106 [facility] Comment on above: Fasting Glucose resu lt from 100 to 125 mg/dL suggests IMPAIRED HOMEOSTASIS per A.D.A. criteria. Neutrophils (Bld) [#/Vol] 4.5 10*3/uL 2.0-7.7 [facility] Neutrophils/100 WBC (Bld) 63.0 % 47-70 [facility] Potassium [Moles/Vol] 4.2 mmol/L 3.5-5.1 [facility] Sodium [Moles/Vol] 143 mmol/L 136-145 [facility] WBC (Bld) [#/Vol] 7.2 10*3/uL 4.4-11.0 [facility] Blood erythrocytes count (nu mber/volume)Ordered By: Asad Jamison on 06-14-2022 RBC (Bld) [#/Vol] 4.60 10*6/uL 4.2-5.4 [facility] Blood hemoglobin measurement (mass/volume)Ordered By: Asad Jamison on 06-14-2022 Hemoglobin (Bld) [Mass/Vol] 12.8 g/dL 12.0-15.0 [facility] Blood lymphocytes/100 leukoc ytesOrdered By: Asad Jamison on 06-14-2022 Lymphocytes/100 WBC (Bld) 17.7 % 19-41 [facility] Blood monocytes/100 leukocyt esOrdered By: Asad Jamison on 06-14-2022 Monocytes/100 WBC (Bld) 13.4 % 0-10 [facility] Blood platelet mean volumeOr dered By: Asad Jamison on 06-14-2022 Platelet mean volume (Bld) [Entitic vol] 9.0 fL 6.2-12.0 [facility] Determination of erythrocyte mean corpuscular volume (MCV)Ordered By: Asad Jamison on 06-14-2022 MCV (RBC) [Entitic vol] 90.4 fL 81-99 [facility] Hematocrit Auto (Bld) [Volum e fraction]Ordered By: Asad Jamison on 06-14-2022 Hematocrit (Bld) [Volume fraction] 41.6 % 37-47 [facility] Laboratory - Chemistry and C hemistry - challengeOrdered By: Asad Jamison on 06-14-2022 CO2 [Moles/Vol] 26.0 mmol/L 21.0-32.0 [facility] Urea nitrogen/Creatinine [Mass ratio] 49.2 mg/mg 10-20 [facility] Laboratory - Hematology and Cell countsOrdered By: Asad Jamison on 06-14-2022 Erythrocyte distribution width (RBC) [Entitic vol] 49.1 fL 35.1-43.9 [facility] Erythrocyte distribution width (RBC) [Ratio] 14.7 % 11.6-14.6 [facility] Immature granulocytes/100 WBC (Bld) 0.700 % 0.0-0.9 [facility] Comment on above: IG% - Immature Granu locytes (promyelocytes, myelocytes and metamyelocytes) > 1% indicates that a LEFT SHIFT is Present. MCH (RBC) [Entitic mass] 27.8 pg 27.0-32.0 [facility] Nucleated RBC/100 WBC (Bld) [Ratio] 0 % 0-5 [facility] MCHC Auto (RBC) [Mass/Vol]Or dered By: Asad Jamison on 06-14-2022 MCHC (RBC) [Mass/Vol] 30.8 g/dL 32-36 [facility] No Panel InformationOrdered By: Asad Jamison on 06-14-2022 Estimated GFR (MDRD) Amer 118 mL/min >60 [facility] Comment on above: GFR Calc Estimated GFR (MDRD) Non-Af Amer 97 mL/min >60 [facility] Comment on above: Non- GFR Calc Platelets bldOrdered By: Gonzales Jamison on 06-14-2022 Platelets (Bld) [#/Vol] 536 10*3/uL 150-450 [facility] Serum or plasma calcium jj urement (mass/volume)Ordered By: Asad Jamison on 06-14-2022 Calcium [Mass/Vol] 9.5 mg/dL 8.5-10.1 [facility] Serum or plasma creatinine m easurement (mass/volume)Ordered By: Asad Jamison on 06-14-2022 Creatinine [Mass/Vol] 0.65 mg/dL 0.55-1.02 [facility] Comment on above: The validity of the calculated GFR & GFRAA in patients over 70 years has not been determined. Clinical correlation is essential. Serum or plasma urea nitroge n measurement (mass/volume)Ordered By: Asad Jamison on 06-14-2022 Urea nitrogen [Mass/Vol] 32 mg/dL 7-18 [facility] Thin prep Papanicolaou smear with manual screeningOrdered By: Asad Jamison on 06-14-2022 Thin prep Papanicolaou smear with manual screening 6 5-15 [facility] Basophil percentageOrdered B y: Breanne uRiz on 06-03-2022 Chloride [Moles/Vol] 106 mmol/L 98-107 [facility] Glucose [Mass/Vol] 116 mg/dL 74-106 [facility] Comment on above: Fasting Glucose resu lt from 100 to 125 mg/dL suggests IMPAIRED HOMEOSTASIS per A.D.A. criteria. Potassium [Moles/Vol] 4.1 mmol/L 3.5-5.1 [facility] Sodium [Moles/Vol] 139 mmol/L 136-145 [facility] Laboratory - Chemistry and C hemistry - challengeOrdered By: Breanne Ruiz on 06-03-2022 CO2 [Moles/Vol] 26.0 mmol/L 21.0-32.0 [facility] Urea nitrogen/Creatinine [Mass ratio] 38.7 mg/mg 10-20 [facility] No Panel InformationOrdered By: Breanne Ruiz on 06-03-2022 Estimated GFR (MDRD) Amer 138 mL/min >60 [facility] Comment on above: GFR Calc Estimated GFR (MDRD) Non-Af Amer 114 mL/min >60 [facility] Comment on above: Non- GFR Calc Serum or plasma calcium jj urement (mass/volume)Ordered By: Breanne Ruiz on 06-03-2022 Calcium [Mass/Vol] 9.7 mg/dL 8.5-10.1 [facility] Serum or plasma creatinine m easurement (mass/volume)Ordered By: Breanne Ruiz on 06-03-2022 Creatinine [Mass/Vol] 0.57 mg/dL 0.55-1.02 [facility] Comment on above: The validity of the calculated GFR & GFRAA in patients over 70 years has not been determined. Clinical correlation is essential. Serum or plasma urea nitroge n measurement (mass/volume)Ordered By: Breanne Ruiz on 06-03-2022 Urea nitrogen [Mass/Vol] 22 mg/dL 7-18 [facility] Thin prep Papanicolaou smear with manual screeningOrdered By: Breanne Ruiz on 06-03-2022 Thin prep Papanicolaou smear with manual screening 7 5-15 [facility] Basophil percentageOrdered B y: Breanne Ruiz on 06-01-2022 Potassium [Moles/Vol] 3.9 mmol/L 3.5-5.1 [facility] Absolute lymphocyte countOrd ered By: Breanne Ruiz on 05-31-2022 Lymphocytes Auto (Unsp spec) [#/Vol] 1.39 10*3/uL 0.83-4.51 [facility] Basophil percentageOrdered B y: Breanne Ruiz on 05-31-2022 Basophils/100 WBC (Bld) 1.0 % 0-1 [facility] Chloride [Moles/Vol] 106 mmol/L 98-107 [facility] Eosinophils/100 WBC (Bld) 4.6 % 0-5 [facility] Glucose [Mass/Vol] 74 mg/dL 74-106 [facility] Neutrophils (Bld) [#/Vol] 7.3 10*3/uL 2.0-7.7 [facility] Neutrophils/100 WBC (Bld) 69.9 % 47-70 [facility] Potassium [Moles/Vol] 4.0 mmol/L 3.5-5.1 [facility] Sodium [Moles/Vol] 141 mmol/L 136-145 [facility] WBC (Bld) [#/Vol] 10.4 10*3/uL 4.4-11.0 [facility] Blood erythrocytes count (nu mber/volume)Ordered By: Breanne Ruiz on 05-31-2022 RBC (Bld) [#/Vol] 4.49 10*6/uL 4.2-5.4 [facility] Blood hemoglobin measurement (mass/volume)Ordered By: Breanne Ruiz on 05-31-2022 Hemoglobin (Bld) [Mass/Vol] 12.5 g/dL 12.0-15.0 [facility] Blood lymphocytes/100 leukoc ytesOrdered By: Breanne Ruiz on 05-31-2022 Lymphocytes/100 WBC (Bld) 13.3 % 19-41 [facility] Blood monocytes/100 leukocyt esOrdered By: Breanne Ruiz on 05-31-2022 Monocytes/100 WBC (Bld) 10.0 % 0-10 [facility] Blood platelet mean volumeOr dered By: Breanne Ruiz on 05-31-2022 Platelet mean volume (Bld) [Entitic vol] 8.8 fL 6.2-12.0 [facility] Culture, urineOrdered By: Elio Ruiz on 05-31-2022 Bacteria identified Cx Nom (U) Escherichia coli [facility] Determination of erythrocyte mean corpuscular volume (MCV)Ordered By: adalbertowittenchetan Ruiz on 05-31-2022 MCV (RBC) [Entitic vol] 91.3 fL 81-99 [facility] Hematocrit Auto (Bld) [Volum e fraction]Ordered By: [facility] Ruiz on 05-31-2022 Hematocrit (Bld) [Volume fraction] 41.0 % 37-47 [facility] Laboratory - Chemistry and C hemistry - challengeOrdered By: [facility] Ruiz on 05-31-2022 CO2 [Moles/Vol] 25.0 mmol/L 21.0-32.0 [facility] Urea nitrogen/Creatinine [Mass ratio] 43.0 mg/mg 10-20 [facility] Laboratory - Hematology and Cell countsOrdered By: [facility] Ruiz on 05-31-2022 Erythrocyte distribution width (RBC) [Entitic vol] 49.5 fL 35.1-43.9 [facility] Erythrocyte distribution width (RBC) [Ratio] 14.6 % 11.6-14.6 [facility] Immature granulocytes/100 WBC (Bld) 1.200 % 0.0-0.9 [facility] Comment on above: IG% - Immature Granu locytes (promyelocytes, myelocytes and metamyelocytes) > 1% indicates that a LEFT SHIFT is Present. MCH (RBC) [Entitic mass] 27.8 pg 27.0-32.0 [facility] Nucleated RBC/100 WBC (Bld) [Ratio] 0 % 0-5 [facility] MCHC Auto (RBC) [Mass/Vol]Or dered By: Breanne Ruiz on 05-31-2022 MCHC (RBC) [Mass/Vol] 30.5 g/dL 32-36 [facility] No Panel InformationOrdered By: Breanne Ruiz on 05-31-2022 Estimated GFR (MDRD) Amer 155 mL/min >60 [facility] Comment on above: GFR Calc Estimated GFR (MDRD) Non-Af Amer 128 mL/min >60 [facility] Comment on above: Non- GFR Calc Platelets bldOrdered By: Prashant Ruiz on 05-31-2022 Platelets (Bld) [#/Vol] 605 10*3/uL 150-450 [facility] Serum or plasma calcium jj urement (mass/volume)Ordered By: Breanne Ruiz on 05-31-2022 Calcium [Mass/Vol] 10.1 mg/dL 8.5-10.1 [facility] Serum or plasma creatinine m easurement (mass/volume)Ordered By: Breanne Ruiz on 05-31-2022 Creatinine [Mass/Vol] 0.51 mg/dL 0.55-1.02 [facility] Comment on above: The validity of the calculated GFR & GFRAA in patients over 70 years has not been determined. Clinical correlation is essential. Serum or plasma urea nitroge n measurement (mass/volume)Ordered By: Breanne Ruiz on 05-31-2022 Urea nitrogen [Mass/Vol] 22 mg/dL 7-18 [facility] Thin prep Papanicolaou smear with manual screeningOrdered By: Breanne Ruiz on 05-31-2022 Thin prep Papanicolaou smear with manual screening 10 5-15 [facility] Bilirubin Test strip Ql (U)O rdered By: Breanne Ruiz on 05-28-2022 Bilirubin Ql (U) Negative Negative [facility] Ketones Test strip Ql (U)Ord ered By: Breanne Ruiz on 05-28-2022 Ketones Ql (U) Negative Negative [facility] Nitrite Test strip Ql (U)Ord ered By: Breanne Ruiz on 05-28-2022 Nitrite Ql (U) Positive Negative [facility] Protein Test strip Ql (U)Ord ered By: Breanne Ruiz on 05-28-2022 Protein Ql (U) 30 mg/dl Negative [facility] Urine blood detectionOrdered By: Breanne Ruiz on 05-28-2022 RBC Ql (U) 25 /ul Negative [facility] Urine clarityOrdered By: Prashant Ruiz on 05-28-2022 Clarity (U) Cloudy Clear [facility] Urine color determinationOrd ered By: Breanne Ruiz on 05-28-2022 Color (U) Yellow Yellow [facility] Urine glucose detectionOrder ed By: Breanne Ruiz on 05-28-2022 Glucose Ql (U) Normal mg/dl Normal [facility] Urine leukocyte esterase det ection by dipstickOrdered By: Breanne Ruiz on 05-28-2022 Leukocyte esterase Test strip Ql (U) 500 /ul Negative [facility] Urine pHOrdered By: Bhupendra Ruiz on 05-28-2022 pH (U) 5.0 [pH] 5.0 - 8.0 [facility] Urine specific gravity measu rementOrdered By: Breanne Ruiz on 05-28-2022 Specific gravity (U) [Rel density] 1.025 1.002-1.030 [facility] Urobilinogen Auto test strip Ql (U)Ordered By: Breanne Ruiz on 05-28-2022 Urobilinogen Ql (U) Normal mg/dl Normal [facility] Absolute lymphocyte countOrd ered By: Breanne Ruiz on 05-27-2022 Lymphocytes Auto (Unsp spec) [#/Vol] 1.33 10*3/uL 0.83-4.51 [facility] Basophil percentageOrdered B y: Breanne Ruiz on 05-27-2022 Basophils/100 WBC (Bld) 0.4 % 0-1 [facility] Chloride [Moles/Vol] 106 mmol/L 98-107 [facility] Eosinophils/100 WBC (Bld) 0.1 % 0-5 [facility] Glucose [Mass/Vol] 196 mg/dL 74-106 [facility] Comment on above: Fasting Glucose resu lt greater than or equal to 126 mg/dL suggests DIABETES MELLITUS per A.D.A. criteria. Neutrophils (Bld) [#/Vol] 19.9 10*3/uL 2.0-7.7 [facility] Neutrophils/100 WBC (Bld) 85.7 % 47-70 [facility] Potassium [Moles/Vol] 3.3 mmol/L 3.5-5.1 [facility] Sodium [Moles/Vol] 139 mmol/L 136-145 [facility] WBC (Bld) [#/Vol] 23.2 10*3/uL 4.4-11.0 [facility] Blood erythrocytes count (nu mber/volume)Ordered By: Breanne Ruiz on 05-27-2022 RBC (Bld) [#/Vol] 4.62 10*6/uL 4.2-5.4 [facility] Blood hemoglobin measurement (mass/volume)Ordered By: Breanne Ruiz on 05-27-2022 Hemoglobin (Bld) [Mass/Vol] 12.9 g/dL 12.0-15.0 [facility] Blood lymphocytes/100 leukoc ytesOrdered By: Breanne Ruiz on 05-27-2022 Lymphocytes/100 WBC (Bld) 5.7 % 19-41 [facility] Blood manual differential co mment interpretation (narrative result)Ordered By: Breanne Ruiz on 05-27-2022 Manual differential comment Shaan (Bld) [Interp] COMMENT [facility] Comment on above: MONOCYTOSIS. Blood monocytes/100 leukocyt esOrdered By: Breanne Ruiz on 05-27-2022 Monocytes/100 WBC (Bld) 7.8 % 0-10 [facility] Blood platelet mean volumeOr dered By: Breanne Ruiz on 05-27-2022 Platelet mean volume (Bld) [Entitic vol] 8.6 fL 6.2-12.0 [facility] Determination of erythrocyte mean corpuscular volume (MCV)Ordered By: Breanne Ruiz on 05-27-2022 MCV (RBC) [Entitic vol] 88.1 fL 81-99 [facility] Hematocrit Auto (Bld) [Volum e fraction]Ordered By: Breanne Ruiz on 05-27-2022 Hematocrit (Bld) [Volume fraction] 40.7 % 37-47 [facility] Laboratory - Chemistry and C hemistry - challengeOrdered By: Breanne Ruiz on 05-27-2022 CO2 [Moles/Vol] 22.0 mmol/L 21.0-32.0 [facility] Urea nitrogen/Creatinine [Mass ratio] 23.1 mg/mg 10-20 [facility] Laboratory - Hematology and Cell countsOrdered By: Breanne Ruiz on 05-27-2022 Erythrocyte distribution width (RBC) [Entitic vol] 48.1 fL 35.1-43.9 [facility] Erythrocyte distribution width (RBC) [Ratio] 14.9 % 11.6-14.6 [facility] Immature granulocytes/100 WBC (Bld) 0.300 % 0.0-0.9 [facility] Comment on above: IG% - Immature Granu locytes (promyelocytes, myelocytes and metamyelocytes) > 1% indicates that a LEFT SHIFT is Present. MCH (RBC) [Entitic mass] 27.9 pg 27.0-32.0 [facility] Nucleated RBC/100 WBC (Bld) [Ratio] 0 % 0-5 [facility] MCHC Auto (RBC) [Mass/Vol]Or dered By: Breanne Ruiz on 05-27-2022 MCHC (RBC) [Mass/Vol] 31.7 g/dL 32-36 [facility] No Panel InformationOrdered By: Breanne Ruiz on 05-27-2022 Estimated GFR (MDRD) Amer 80 mL/min >60 [facility] Comment on above: GFR Calc Estimated GFR (MDRD) Non-Af Amer 66 mL/min >60 [facility] Comment on above: Non- GFR Calc Troponin I High Sensitivity 7 pg/mL 3.0-54.0 [facility] Comment on above: Please Note: New Adwoa t Units and Gender Specific Reference Ranges. For more information see Policy Stat Procedure [place] High Sensitivity Troponin (TNIH) and attachments. Platelets bldOrdered By: Prashant Ruiz on 05-27-2022 Platelets (Bld) [#/Vol] 468 10*3/uL 150-450 [facility] Review by pathologistOrdered By: Breanne Ruiz on 05-27-2022 Pathologist review Shaan (Unsp spec) [Interp] Reviewed [facility] Comment on above: Previous reported re sult: October ferny Edited by: RGOJENNIFER on 05/31/22:1348Neutrophilic leukocytosis.Thrombocytosis.Clinical correlation necessary.Je Browne M.D. 05/31/22 AMENDED REPORT 05/31/22 1348 PATH REV previously reported as: October ferny Serum or plasma calcium jj urement (mass/volume)Ordered By: Breanne Ruiz on 05-27-2022 Calcium [Mass/Vol] 9.4 mg/dL 8.5-10.1 [facility] Serum or plasma creatinine m easurement (mass/volume)Ordered By: Breanne Ruiz on 05-27-2022 Creatinine [Mass/Vol] 0.91 mg/dL 0.55-1.02 [facility] Comment on above: The validity of the calculated GFR & GFRAA in patients over 70 years has not been determined. Clinical correlation is essential. Serum or plasma urea nitroge n measurement (mass/volume)Ordered By: Breanne Ruiz on 05-27-2022 Urea nitrogen [Mass/Vol] 21 mg/dL 7-18 [facility] Thin prep Papanicolaou smear with manual screeningOrdered By: Breanne Ruiz on 05-27-2022 Thin prep Papanicolaou smear with manual screening 11 5-15 [facility] Absolute lymphocyte countOrd ered By: Breanne Ruiz on 05-17-2022 Lymphocytes Auto (Unsp spec) [#/Vol] 1.57 10*3/uL 0.83-4.51 [facility] Basophil percentageOrdered B y: Breanne Ruiz on 05-17-2022 Basophils/100 WBC (Bld) 1.3 % 0-1 [facility] Chloride [Moles/Vol] 110 mmol/L 98-107 [facility] Eosinophils/100 WBC (Bld) 5.6 % 0-5 [facility] Glucose [Mass/Vol] 109 mg/dL 74-106 [facility] Comment on above: Fasting Glucose resu lt from 100 to 125 mg/dL suggests IMPAIRED HOMEOSTASIS per A.D.A. criteria. Neutrophils (Bld) [#/Vol] 4.6 10*3/uL 2.0-7.7 [facility] Neutrophils/100 WBC (Bld) 60.7 % 47-70 [facility] Potassium [Moles/Vol] 4.0 mmol/L 3.5-5.1 [facility] Sodium [Moles/Vol] 144 mmol/L 136-145 [facility] WBC (Bld) [#/Vol] 7.6 10*3/uL 4.4-11.0 [facility] Blood erythrocytes count (nu mber/volume)Ordered By: Breanne Ruiz on 05-17-2022 RBC (Bld) [#/Vol] 4.79 10*6/uL 4.2-5.4 [facility] Blood hemoglobin measurement (mass/volume)Ordered By: Breanne Ruiz on 05-17-2022 Hemoglobin (Bld) [Mass/Vol] 13.0 g/dL 12.0-15.0 [facility] Blood lymphocytes/100 leukoc ytesOrdered By: Breanne Ruiz on 05-17-2022 Lymphocytes/100 WBC (Bld) 20.8 % 19-41 [facility] Blood monocytes/100 leukocyt esOrdered By: Breanne Ruiz on 05-17-2022 Monocytes/100 WBC (Bld) 11.2 % 0-10 [facility] Blood platelet mean volumeOr dered By: Breanne Ruiz on 05-17-2022 Platelet mean volume (Bld) [Entitic vol] 9.2 fL 6.2-12.0 [facility] Determination of erythrocyte mean corpuscular volume (MCV)Ordered By: Breanne Ruiz on 05-17-2022 MCV (RBC) [Entitic vol] 91.4 fL 81-99 [facility] Hematocrit Auto (Bld) [Volum e fraction]Ordered By: Breanne Ruiz on 05-17-2022 Hematocrit (Bld) [Volume fraction] 43.8 % 37-47 [facility] Laboratory - Chemistry and C hemistry - challengeOrdered By: Breanne Ruiz on 05-17-2022 CO2 [Moles/Vol] 26.0 mmol/L 21.0-32.0 [facility] Urea nitrogen/Creatinine [Mass ratio] 45.3 mg/mg 10-20 [facility] Laboratory - Hematology and Cell countsOrdered By: Breanne Ruiz on 05-17-2022 Erythrocyte distribution width (RBC) [Entitic vol] 50.4 fL 35.1-43.9 [facility] Erythrocyte distribution width (RBC) [Ratio] 15.0 % 11.6-14.6 [facility] Immature granulocytes/100 WBC (Bld) 0.400 % 0.0-0.9 [facility] Comment on above: IG% - Immature Granu locytes (promyelocytes, myelocytes and metamyelocytes) > 1% indicates that a LEFT SHIFT is Present. MCH (RBC) [Entitic mass] 27.1 pg 27.0-32.0 [facility] Nucleated RBC/100 WBC (Bld) [Ratio] 0 % 0-5 [facility] MCHC Auto (RBC) [Mass/Vol]Or dered By: Breanne Ruiz on 05-17-2022 MCHC (RBC) [Mass/Vol] 29.7 g/dL 32-36 [facility] No Panel InformationOrdered By: Breanne Ruiz on 05-17-2022 Estimated GFR (MDRD) Amer 116 mL/min >60 [facility] Comment on above: GFR Calc Estimated GFR (MDRD) Non-Af Amer 95 mL/min >60 [facility] Comment on above: Non- GFR Calc Platelets bldOrdered By: Prashant Ruiz on 05-17-2022 Platelets (Bld) [#/Vol] 503 10*3/uL 150-450 [facility] Serum or plasma calcium jj urement (mass/volume)Ordered By: Breanne Ruiz on 05-17-2022 Calcium [Mass/Vol] 9.7 mg/dL 8.5-10.1 [facility] Serum or plasma creatinine m easurement (mass/volume)Ordered By: Breanne Ruiz on 05-17-2022 Creatinine [Mass/Vol] 0.66 mg/dL 0.55-1.02 [facility] Comment on above: The validity of the calculated GFR & GFRAA in patients over 70 years has not been determined. Clinical correlation is essential. Serum or plasma urea nitroge n measurement (mass/volume)Ordered By: Breanne Ruiz on 05-17-2022 Urea nitrogen [Mass/Vol] 30 mg/dL 7-18 [facility] Thin prep Papanicolaou smear with manual screeningOrdered By: Breanne Ruiz on 05-17-2022 Thin prep Papanicolaou smear with manual screening 8 5-15 [facility] Absolute lymphocyte countOrd ered By: Asad Jamison on 05-03-2022 Lymphocytes Auto (Unsp spec) [#/Vol] 1.95 10*3/uL 0.83-4.51 [facility] Basophil percentageOrdered B y: Asad Jamison on 05-03-2022 Basophils/100 WBC (Bld) 0.9 % 0-1 [facility] Chloride [Moles/Vol] 103 mmol/L 98-107 [facility] Eosinophils/100 WBC (Bld) 3.9 % 0-5 [facility] Glucose [Mass/Vol] 100 mg/dL 74-106 [facility] Comment on above: Fasting Glucose resu lt from 100 to 125 mg/dL suggests IMPAIRED HOMEOSTASIS per A.D.A. criteria. Neutrophils (Bld) [#/Vol] 6.6 10*3/uL 2.0-7.7 [facility] Neutrophils/100 WBC (Bld) 66.2 % 47-70 [facility] Potassium [Moles/Vol] 4.1 mmol/L 3.5-5.1 [facility] Comment on above: Moderate Hemolysis, Result may be falsely increased. Sodium [Moles/Vol] 139 mmol/L 136-145 [facility] WBC (Bld) [#/Vol] 10.0 10*3/uL 4.4-11.0 [facility] Blood erythrocytes count (nu mber/volume)Ordered By: Asad Jamison on 05-03-2022 RBC (Bld) [#/Vol] 4.77 10*6/uL 4.2-5.4 [facility] Blood hemoglobin measurement (mass/volume)Ordered By: Asad Jamison on 05-03-2022 Hemoglobin (Bld) [Mass/Vol] 13.2 g/dL 12.0-15.0 [facility] Blood lymphocytes/100 leukoc ytesOrdered By: Asad Jamison on 05-03-2022 Lymphocytes/100 WBC (Bld) 19.5 % 19-41 [facility] Blood monocytes/100 leukocyt esOrdered By: Asad Jamison on 05-03-2022 Monocytes/100 WBC (Bld) 8.9 % 0-10 [facility] Blood platelet mean volumeOr dered By: Asad Jamison on 05-03-2022 Platelet mean volume (Bld) [Entitic vol] 8.9 fL 6.2-12.0 [facility] Determination of erythrocyte mean corpuscular volume (MCV)Ordered By: Asad Jamison on 05-03-2022 MCV (RBC) [Entitic vol] 88.5 fL 81-99 [facility] Hematocrit Auto (Bld) [Volum e fraction]Ordered By: Asad Jamison on 05-03-2022 Hematocrit (Bld) [Volume fraction] 42.2 % 37-47 [facility] Laboratory - Chemistry and C hemistry - challengeOrdered By: Asad Jamison on 05-03-2022 CO2 [Moles/Vol] 25.0 mmol/L 21.0-32.0 [facility] Urea nitrogen/Creatinine [Mass ratio] 48.2 mg/mg 10-20 [facility] Laboratory - Hematology and Cell countsOrdered By: Asad Jamison on 05-03-2022 Erythrocyte distribution width (RBC) [Entitic vol] 48.7 fL 35.1-43.9 [facility] Erythrocyte distribution width (RBC) [Ratio] 15.0 % 11.6-14.6 [facility] Immature granulocytes/100 WBC (Bld) 0.600 % 0.0-0.9 [facility] Comment on above: IG% - Immature Granu locytes (promyelocytes, myelocytes and metamyelocytes) > 1% indicates that a LEFT SHIFT is Present. MCH (RBC) [Entitic mass] 27.7 pg 27.0-32.0 [facility] Nucleated RBC/100 WBC (Bld) [Ratio] 0 % 0-5 [facility] MCHC Auto (RBC) [Mass/Vol]Or dered By: Asad Jamison on 05-03-2022 MCHC (RBC) [Mass/Vol] 31.3 g/dL 32-36 [facility] No Panel InformationOrdered By: Asad Jamison on 05-03-2022 Estimated GFR (MDRD) Amer 129 mL/min >60 [facility] Comment on above: GFR Calc Estimated GFR (MDRD) Non-Af Amer 107 mL/min >60 [facility] Comment on above: Non- GFR Calc Platelets bldOrdered By: Gonzales Jamison on 05-03-2022 Platelets (Bld) [#/Vol] 488 10*3/uL 150-450 [facility] Serum or plasma calcium jj urement (mass/volume)Ordered By: Asad Jamison on 05-03-2022 Calcium [Mass/Vol] 9.4 mg/dL 8.5-10.1 [facility] Serum or plasma creatinine m easurement (mass/volume)Ordered By: Asad Jamison on 05-03-2022 Creatinine [Mass/Vol] 0.60 mg/dL 0.55-1.02 [facility] Comment on above: The validity of the calculated GFR & GFRAA in patients over 70 years has not been determined. Clinical correlation is essential. Serum or plasma urea nitroge n measurement (mass/volume)Ordered By: Asad Jamison on 05-03-2022 Urea nitrogen [Mass/Vol] 29 mg/dL 7-18 [facility] Thin prep Papanicolaou smear with manual screeningOrdered By: Asad Jamison on 05-03-2022 Thin prep Papanicolaou smear with manual screening 11 - [facility] Absolute lymphocyte countOrd ered By: Asad Jamison on 04-19-2022 Lymphocytes Auto (Unsp spec) [#/Vol] 1.80 10*3/uL 0.83-4.51 [facility] Basophil percentageOrdered B y: Asad Jamison on 04-19-2022 Basophils/100 WBC (Bld) 1.0 % 0-1 [facility] Chloride [Moles/Vol] 106 mmol/L 98-107 [facility] Eosinophils/100 WBC (Bld) 3.6 % 0-5 [facility] Glucose [Mass/Vol] 107 mg/dL 74-106 [facility] Comment on above: Fasting Glucose resu lt from 100 to 125 mg/dL suggests IMPAIRED HOMEOSTASIS per A.D.A. criteria. Neutrophils (Bld) [#/Vol] 4.6 10*3/uL 2.0-7.7 [facility] Neutrophils/100 WBC (Bld) 59.3 % 47-70 [facility] Potassium [Moles/Vol] 4.1 mmol/L 3.5-5.1 [facility] Sodium [Moles/Vol] 140 mmol/L 136-145 [facility] WBC (Bld) [#/Vol] 7.8 10*3/uL 4.4-11.0 [facility] Blood erythrocytes count (nu mber/volume)Ordered By: Asad Jamison on 04-19-2022 RBC (Bld) [#/Vol] 4.98 10*6/uL 4.2-5.4 [facility] Blood hemoglobin measurement (mass/volume)Ordered By: Asad Jamison on 04-19-2022 Hemoglobin (Bld) [Mass/Vol] 13.1 g/dL 12.0-15.0 [facility] Blood lymphocytes/100 leukoc ytesOrdered By: Asad Jamison on 04-19-2022 Lymphocytes/100 WBC (Bld) 23.1 % 19-41 [facility] Blood monocytes/100 leukocyt esOrdered By: Asad Jamison on 04-19-2022 Monocytes/100 WBC (Bld) 12.1 % 0-10 [facility] Blood platelet mean volumeOr dered By: Asad Jamison on 04-19-2022 Platelet mean volume (Bld) [Entitic vol] 8.9 fL 6.2-12.0 [facility] Determination of erythrocyte mean corpuscular volume (MCV)Ordered By: Asad Jamison on 04-19-2022 MCV (RBC) [Entitic vol] 88.0 fL 81-99 [facility] Hematocrit Auto (Bld) [Volum e fraction]Ordered By: Asad Jamison on 04-19-2022 Hematocrit (Bld) [Volume fraction] 43.8 % 37-47 [facility] Laboratory - Chemistry and C hemistry - challengeOrdered By: Asad Jamison on 04-19-2022 CO2 [Moles/Vol] 27.0 mmol/L 21.0-32.0 [facility] Urea nitrogen/Creatinine [Mass ratio] 43.6 mg/mg 10-20 [facility] Laboratory - Hematology and Cell countsOrdered By: Asad Jamison on 04-19-2022 Erythrocyte distribution width (RBC) [Entitic vol] 48.2 fL 35.1-43.9 [facility] Erythrocyte distribution width (RBC) [Ratio] 15.0 % 11.6-14.6 [facility] Immature granulocytes/100 WBC (Bld) 0.900 % 0.0-0.9 [facility] Comment on above: IG% - Immature Granu locytes (promyelocytes, myelocytes and metamyelocytes) > 1% indicates that a LEFT SHIFT is Present. MCH (RBC) [Entitic mass] 26.3 pg 27.0-32.0 [facility] Nucleated RBC/100 WBC (Bld) [Ratio] 0 % 0-5 [facility] MCHC Auto (RBC) [Mass/Vol]Or dered By: Asad Jamison on 04-19-2022 MCHC (RBC) [Mass/Vol] 29.9 g/dL 32-36 [facility] No Panel InformationOrdered By: Asad Jamison on 04-19-2022 Estimated GFR (MDRD) Amer 130 mL/min >60 [facility] Comment on above: GFR Calc Estimated GFR (MDRD) Non-Af Amer 108 mL/min >60 [facility] Comment on above: Non- GFR Calc Platelets bldOrdered By: Gonzales Jamison on 04-19-2022 Platelets (Bld) [#/Vol] 534 10*3/uL 150-450 [facility] Serum or plasma calcium jj urement (mass/volume)Ordered By: Asad Jamison on 04-19-2022 Calcium [Mass/Vol] 9.6 mg/dL 8.5-10.1 [facility] Serum or plasma creatinine m easurement (mass/volume)Ordered By: Asad Jamison on 04-19-2022 Creatinine [Mass/Vol] 0.60 mg/dL 0.55-1.02 [facility] Comment on above: The validity of the calculated GFR & GFRAA in patients over 70 years has not been determined. Clinical correlation is essential. Serum or plasma urea nitroge n measurement (mass/volume)Ordered By: Asad Jamison on 04-19-2022 Urea nitrogen [Mass/Vol] 26 mg/dL 7-18 [facility] Thin prep Papanicolaou smear with manual screeningOrdered By: Asad Jamison on 04-19-2022 Thin prep Papanicolaou smear with manual screening 7 5-15 [facility] Absolute lymphocyte countOrd ered By: Asad Jamison on 04-05-2022 Lymphocytes Auto (Unsp spec) [#/Vol] 1.31 10*3/uL 0.83-4.51 [facility] Basophil percentageOrdered B y: Asad Jamison on 04-05-2022 Basophils/100 WBC (Bld) 1.0 % 0-1 [facility] Chloride [Moles/Vol] 108 mmol/L 98-107 [facility] Eosinophils/100 WBC (Bld) 3.6 % 0-5 [facility] Glucose [Mass/Vol] 105 mg/dL 74-106 [facility] Comment on above: Fasting Glucose resu lt from 100 to 125 mg/dL suggests IMPAIRED HOMEOSTASIS per A.D.A. criteria. Neutrophils (Bld) [#/Vol] 6.1 10*3/uL 2.0-7.7 [facility] Neutrophils/100 WBC (Bld) 68.9 % 47-70 [facility] Potassium [Moles/Vol] 4.0 mmol/L 3.5-5.1 [facility] Sodium [Moles/Vol] 141 mmol/L 136-145 [facility] WBC (Bld) [#/Vol] 8.9 10*3/uL 4.4-11.0 [facility] Blood erythrocytes count (nu mber/volume)Ordered By: Asad Jamison on 04-05-2022 RBC (Bld) [#/Vol] 4.79 10*6/uL 4.2-5.4 [facility] Blood hemoglobin measurement (mass/volume)Ordered By: Asad Jamison on 04-05-2022 Hemoglobin (Bld) [Mass/Vol] 13.0 g/dL 12.0-15.0 [facility] Blood lymphocytes/100 leukoc ytesOrdered By: Asad Jamison on 04-05-2022 Lymphocytes/100 WBC (Bld) 14.7 % 19-41 [facility] Blood monocytes/100 leukocyt esOrdered By: Asad Jamison on 04-05-2022 Monocytes/100 WBC (Bld) 11.4 % 0-10 [facility] Blood platelet mean volumeOr dered By: Asad Jamison on 04-05-2022 Platelet mean volume (Bld) [Entitic vol] 8.7 fL 6.2-12.0 [facility] Determination of erythrocyte mean corpuscular volume (MCV)Ordered By: Asad Jamison on 04-05-2022 MCV (RBC) [Entitic vol] 87.9 fL 81-99 [facility] Hematocrit Auto (Bld) [Volum e fraction]Ordered By: Asad Jamison on 04-05-2022 Hematocrit (Bld) [Volume fraction] 42.1 % 37-47 [facility] Laboratory - Chemistry and C hemistry - challengeOrdered By: Asad Jamison on 04-05-2022 CO2 [Moles/Vol] 27.0 mmol/L 21.0-32.0 [facility] Urea nitrogen/Creatinine [Mass ratio] 44.3 mg/mg 10-20 [facility] Laboratory - Hematology and Cell countsOrdered By: Asad Jamison on 04-05-2022 Erythrocyte distribution width (RBC) [Entitic vol] 49.4 fL 35.1-43.9 [facility] Erythrocyte distribution width (RBC) [Ratio] 15.3 % 11.6-14.6 [facility] Immature granulocytes/100 WBC (Bld) 0.400 % 0.0-0.9 [facility] Comment on above: IG% - Immature Granu locytes (promyelocytes, myelocytes and metamyelocytes) > 1% indicates that a LEFT SHIFT is Present. MCH (RBC) [Entitic mass] 27.1 pg 27.0-32.0 [facility] Nucleated RBC/100 WBC (Bld) [Ratio] 0 % 0-5 [facility] MCHC Auto (RBC) [Mass/Vol]Or dered By: Asad Jamison on 04-05-2022 MCHC (RBC) [Mass/Vol] 30.9 g/dL 32-36 [facility] No Panel InformationOrdered By: Asad Jamison on 04-05-2022 Estimated GFR (MDRD) Amer 127 mL/min >60 [facility] Comment on above: GFR Calc Estimated GFR (MDRD) Non-Af Amer 105 mL/min >60 [facility] Comment on above: Non- GFR Calc Platelets bldOrdered By: Gonzales Jamison on 04-05-2022 Platelets (Bld) [#/Vol] 516 10*3/uL 150-450 [facility] Serum or plasma calcium jj urement (mass/volume)Ordered By: Asad Jamison on 04-05-2022 Calcium [Mass/Vol] 9.6 mg/dL 8.5-10.1 [facility] Serum or plasma creatinine m easurement (mass/volume)Ordered By: Asad Jamison on 04-05-2022 Creatinine [Mass/Vol] 0.61 mg/dL 0.55-1.02 [facility] Comment on above: The validity of the calculated GFR & GFRAA in patients over 70 years has not been determined. Clinical correlation is essential. Serum or plasma urea nitroge n measurement (mass/volume)Ordered By: Asad Jamison on 04-05-2022 Urea nitrogen [Mass/Vol] 27 mg/dL 7-18 [facility] Thin prep Papanicolaou smear with manual screeningOrdered By: Asad Jamison on 04-05-2022 Thin prep Papanicolaou smear with manual screening 6 5-15 [facility] [place] Absolute lymphocyte countOrd ered By: Asad aJmison on 03-22-2022 Lymphocytes Auto (Unsp spec) [#/Vol] 1.60 10*3/uL 0.83-4.51 [facility] [place] [facility] Basophil percentageOrdered B y: Asad Jamison on 03-22-2022 Basophils/100 WBC (Bld) 1.1 % 0-1 [facility] Chloride [Moles/Vol] 108 mmol/L 98-107 [facility] Eosinophils/100 WBC (Bld) 2.9 % 0-5 [facility] [place] Glucose [Mass/Vol] 96 mg/dL 74-106 [facility] Neutrophils (Bld) [#/Vol] 5.1 10*3/uL 2.0-7.7 [facility] [place] [facility] Neutrophils/100 WBC (Bld) 65.2 % 47-70 [facility] [place] [facility] Potassium [Moles/Vol] 4.1 mmol/L 3.5-5.1 [facility] Sodium [Moles/Vol] 142 mmol/L 136-145 [facility] WBC (Bld) [#/Vol] 7.9 10*3/uL 4.4-11.0 [facility] Blood erythrocytes count (nu mber/volume)Ordered By: Asad Jamison on 03-22-2022 RBC (Bld) [#/Vol] 4.84 10*6/uL 4.2-5.4 [facility] Blood hemoglobin measurement (mass/volume)Ordered By: Asad Jamison on 03-22-2022 Hemoglobin (Bld) [Mass/Vol] 13.1 g/dL 12.0-15.0 [facility] [place] Blood lymphocytes/100 leukoc ytesOrdered By: Asad Jamison on 03-22-2022 Lymphocytes/100 WBC (Bld) 20.3 % 19-41 [facility] [place] Blood monocytes/100 leukocyt esOrdered By: Asad Jamison on 03-22-2022 Monocytes/100 WBC (Bld) 10.2 % 0-10 [facility] Blood platelet mean volumeOr dered By: Asad Jamison on 03-22-2022 Platelet mean volume (Bld) [Entitic vol] 9.1 fL 6.2-12.0 [facility] [place] [facility] Determination of erythrocyte mean corpuscular volume (MCV)Ordered By: Asad Jamison on 03-22-2022 MCV (RBC) [Entitic vol] 87.8 fL 81-99 [facility] Hematocrit Auto (Bld) [Volum e fraction]Ordered By: Asad Jamison on 03-22-2022 Hematocrit (Bld) [Volume fraction] 42.5 % 37-47 [facility] [place] Laboratory - Chemistry and C hemistry - challengeOrdered By: Asad Jamison on 03-22-2022 CO2 [Moles/Vol] 26.0 mmol/L 21.0-32.0 [facility] [place] Urea nitrogen/Creatinine [Mass ratio] 34.4 mg/mg 10-20 [facility] [place] Laboratory - Hematology and Cell countsOrdered By: Asad Jamison on 03-22-2022 Erythrocyte distribution width (RBC) [Entitic vol] 48.4 fL 35.1-43.9 [facility] Erythrocyte distribution width (RBC) [Ratio] 15.0 % 11.6-14.6 [facility] [place] [facility] Immature granulocytes/100 WBC (Bld) 0.300 % 0.0-0.9 [facility] [place] [facility] Comment on above: IG% - Immature Granu locytes (promyelocytes, myelocytes and metamyelocytes) > 1% indicates that a LEFT SHIFT is Present. MCH (RBC) [Entitic mass] 27.1 pg 27.0-32.0 [facility] [place] Nucleated RBC/100 WBC (Bld) [Ratio] 0 % 0-5 [facility] [place] MCHC Auto (RBC) [Mass/Vol]Or dered By: Asad Jamison on 03-22-2022 MCHC (RBC) [Mass/Vol] 30.8 g/dL 32-36 [facility] No Panel InformationOrdered By: Asad Jamison on 03-22-2022 Estimated GFR (MDRD) Amer 120 mL/min >60 [facility] [place] [facility] Comment on above: GFR Calc Estimated GFR (MDRD) Non-Af Amer 99 mL/min >60 [facility] [place] [facility] Comment on above: Non- GFR Calc Platelets bldOrdered By: Gonzales Jamison on 03-22-2022 Platelets (Bld) [#/Vol] 522 10*3/uL 150-450 [facility] [place] [facility] Serum or plasma calcium jj urement (mass/volume)Ordered By: Asad Jamison on 03-22-2022 Calcium [Mass/Vol] 9.4 mg/dL 8.5-10.1 [facility] Serum or plasma creatinine m easurement (mass/volume)Ordered By: Asad Jamison on 03-22-2022 Creatinine [Mass/Vol] 0.64 mg/dL 0.55-1.02 [facility] Comment on above: The validity of the calculated GFR & GFRAA in patients over 70 years has not been determined. Clinical correlation is essential. Serum or plasma urea nitroge n measurement (mass/volume)Ordered By: Asad Jamison on 03-22-2022 Urea nitrogen [Mass/Vol] 22 mg/dL -18 [facility] [place] [facility] Thin prep Papanicolaou smear with manual screeningOrdered By: Asad Jamison on 03-22-2022 Thin prep Papanicolaou smear with manual screening 8 5-15 [facility] [place] Absolute lymphocyte countOrd ered By: Asad Jamison on 03-08-2022 Lymphocytes Auto (Unsp spec) [#/Vol] 1.49 10*3/uL 0.83-4.51 [facility] [place] Basophil percentageOrdered B y: Asad Jamison on 03-08-2022 Basophils/100 WBC (Bld) 1.3 % 0-1 [facility] Chloride [Moles/Vol] 108 mmol/L 98-107 [facility] Eosinophils/100 WBC (Bld) 3.9 % 0-5 [facility] [place] Glucose [Mass/Vol] 105 mg/dL 74-106 [facility] Comment on above: Fasting Glucose resu lt from 100 to 125 mg/dL suggests IMPAIRED HOMEOSTASIS per A.D.A. criteria. Neutrophils (Bld) [#/Vol] 4.3 10*3/uL 2.0-7.7 [facility] [place] Neutrophils/100 WBC (Bld) 61.3 % 47-70 [facility] [place] Potassium [Moles/Vol] 4.1 mmol/L 3.5-5.1 [facility] Sodium [Moles/Vol] 142 mmol/L 136-145 [facility] WBC (Bld) [#/Vol] 7.1 10*3/uL 4.4-11.0 [facility] Blood erythrocytes count (nu mber/volume)Ordered By: Asad Jamison on 03-08-2022 RBC (Bld) [#/Vol] 4.87 10*6/uL 4.2-5.4 [facility] Blood hemoglobin measurement (mass/volume)Ordered By: Asad Jamison on 03-08-2022 Hemoglobin (Bld) [Mass/Vol] 13.0 g/dL 12.0-15.0 [facility] [place] Blood lymphocytes/100 leukoc ytesOrdered By: Asad Jamison on 03-08-2022 Lymphocytes/100 WBC (Bld) 21.0 % 19-41 [facility] [place] Blood monocytes/100 leukocyt esOrdered By: Asad Jamison on 03-08-2022 Monocytes/100 WBC (Bld) 12.1 % 0-10 [facility] Blood platelet mean volumeOr dered By: Asad Jamison on 03-08-2022 Platelet mean volume (Bld) [Entitic vol] 8.9 fL 6.2-12.0 [facility] [place] Determination of erythrocyte mean corpuscular volume (MCV)Ordered By: Asad Jamison on 03-08-2022 MCV (RBC) [Entitic vol] 87.9 fL 81-99 [facility] Hematocrit Auto (Bld) [Volum e fraction]Ordered By: Asad Jamison on 03-08-2022 Hematocrit (Bld) [Volume fraction] 42.8 % 37-47 [facility] [place] Laboratory - Chemistry and C hemistry - challengeOrdered By: Asad Jamison on 03-08-2022 CO2 [Moles/Vol] 27.0 mmol/L 21.0-32.0 [facility] [place] Urea nitrogen/Creatinine [Mass ratio] 47.1 mg/mg 10-20 [facility] [place] Laboratory - Hematology and Cell countsOrdered By: Asad Jamison on 03-08-2022 Erythrocyte distribution width (RBC) [Entitic vol] 47.6 fL 35.1-43.9 [facility] Erythrocyte distribution width (RBC) [Ratio] 14.8 % 11.6-14.6 [facility] [place] Immature granulocytes/100 WBC (Bld) 0.400 % 0.0-0.9 [facility] [place] [facility] Comment on above: IG% - Immature Granu locytes (promyelocytes, myelocytes and metamyelocytes) > 1% indicates that a LEFT SHIFT is Present. MCH (RBC) [Entitic mass] 26.7 pg 27.0-32.0 [facility] [place] Nucleated RBC/100 WBC (Bld) [Ratio] 0 % 0-5 [facility] [place] MCHC Auto (RBC) [Mass/Vol]Or dered By: Asad Jamison on 03-08-2022 MCHC (RBC) [Mass/Vol] 30.4 g/dL 32-36 [facility] No Panel InformationOrdered By: Asad Jamison on 03-08-2022 Estimated GFR (MDRD) Amer 131 mL/min >60 [facility] [place] [facility] Comment on above: GFR Calc Estimated GFR (MDRD) Non-Af Amer 108 mL/min >60 [facility] [place] Comment on above: Non- GFR Calc Platelets bldOrdered By: Gonzales Jamison on 03-08-2022 Platelets (Bld) [#/Vol] 521 10*3/uL 150-450 [facility] [place] Serum or plasma calcium jj urement (mass/volume)Ordered By: Asad Jamison on 03-08-2022 Calcium [Mass/Vol] 9.5 mg/dL 8.5-10.1 [facility] Serum or plasma creatinine m easurement (mass/volume)Ordered By: Asad Jamison on 03-08-2022 Creatinine [Mass/Vol] 0.59 mg/dL 0.55-1.02 [facility] Comment on above: The validity of the calculated GFR & GFRAA in patients over 70 years has not been determined. Clinical correlation is essential. Serum or plasma urea nitroge n measurement (mass/volume)Ordered By: Asad Jamison on 03-08-2022 Urea nitrogen [Mass/Vol] 28 mg/dL 7-18 [facility] [place] Thin prep Papanicolaou smear with manual screeningOrdered By: Asad Jamison on 03-08-2022 Thin prep Papanicolaou smear with manual screening 7 5-15 [facility] [place] Absolute lymphocyte countOrd ered By: Asad Jamison on 02-22-2022 Lymphocytes Auto (Unsp spec) [#/Vol] 1.48 10*3/uL 0.83-4.51 [facility] [place] Basophil percentageOrdered B y: Asad Jamison on 02-22-2022 Basophils/100 WBC (Bld) 1.2 % 0-1 [facility] Chloride [Moles/Vol] 109 mmol/L 98-107 [facility] Eosinophils/100 WBC (Bld) 5.9 % 0-5 [facility] [place] Glucose [Mass/Vol] 103 mg/dL 74-106 [facility] Comment on above: Fasting Glucose resu lt from 100 to 125 mg/dL suggests IMPAIRED HOMEOSTASIS per A.D.A. criteria. Neutrophils (Bld) [#/Vol] 4.1 10*3/uL 2.0-7.7 [facility] [place] Neutrophils/100 WBC (Bld) 58.7 % 47-70 [facility] [place] Potassium [Moles/Vol] 4.3 mmol/L 3.5-5.1 [facility] Sodium [Moles/Vol] 143 mmol/L 136-145 [facility] WBC (Bld) [#/Vol] 6.9 10*3/uL 4.4-11.0 [facility] Blood erythrocytes count (nu mber/volume)Ordered By: Asad Jamison on 02-22-2022 RBC (Bld) [#/Vol] 4.90 10*6/uL 4.2-5.4 [facility] Blood hemoglobin measurement (mass/volume)Ordered By: Asad Jamison on 02-22-2022 Hemoglobin (Bld) [Mass/Vol] 13.1 g/dL 12.0-15.0 [facility] [place] Blood lymphocytes/100 leukoc ytesOrdered By: Asad Jamison on 02-22-2022 Lymphocytes/100 WBC (Bld) 21.4 % 19-41 [facility] [place] Blood monocytes/100 leukocyt esOrdered By: Asad Jamison on 02-22-2022 Monocytes/100 WBC (Bld) 12.4 % 0-10 [facility] Blood platelet mean volumeOr dered By: Asad Jamison on 02-22-2022 Platelet mean volume (Bld) [Entitic vol] 9.0 fL 6.2-12.0 [facility] [place] Determination of erythrocyte mean corpuscular volume (MCV)Ordered By: Asad Jamison on 02-22-2022 MCV (RBC) [Entitic vol] 88.2 fL 81-99 [facility] Hematocrit Auto (Bld) [Volum e fraction]Ordered By: Asad Jamison on 02-22-2022 Hematocrit (Bld) [Volume fraction] 43.2 % 37-47 [facility] [place] Laboratory - Chemistry and C hemistry - challengeOrdered By: Asad Jamison on 02-22-2022 CO2 [Moles/Vol] 25.0 mmol/L 21.0-32.0 [facility] [place] Urea nitrogen/Creatinine [Mass ratio] 48.9 mg/mg 10-20 [facility] [place] Laboratory - Hematology and Cell countsOrdered By: Asad Jamison on 02-22-2022 Erythrocyte distribution width (RBC) [Entitic vol] 48.8 fL 35.1-43.9 [facility] Erythrocyte distribution width (RBC) [Ratio] 15.1 % 11.6-14.6 [facility] [place] Immature granulocytes/100 WBC (Bld) 0.400 % 0.0-0.9 [facility] [place] Comment on above: IG% - Immature Granu locytes (promyelocytes, myelocytes and metamyelocytes) > 1% indicates that a LEFT SHIFT is Present. MCH (RBC) [Entitic mass] 26.7 pg 27.0-32.0 [facility] [place] Nucleated RBC/100 WBC (Bld) [Ratio] 0 % 0-5 [facility] [place] MCHC Auto (RBC) [Mass/Vol]Or dered By: Asad Jamison on 02-22-2022 MCHC (RBC) [Mass/Vol] 30.3 g/dL 32-36 [facility] No Panel InformationOrdered By: Asad Jamison on 02-22-2022 Estimated GFR (MDRD) Amer 126 mL/min >60 [facility] [place] [facility] Comment on above: GFR Calc Estimated GFR (MDRD) Non-Af Amer 104 mL/min >60 [facility] [place] Comment on above: Non- GFR Calc Platelets bldOrdered By: Gonzales Jamison on 02-22-2022 Platelets (Bld) [#/Vol] 492 10*3/uL 150-450 [facility] [place] Serum or plasma calcium jj urement (mass/volume)Ordered By: Asad Jamison on 02-22-2022 Calcium [Mass/Vol] 9.7 mg/dL 8.5-10.1 [facility] Serum or plasma creatinine m easurement (mass/volume)Ordered By: Asad Jamison on 02-22-2022 Creatinine [Mass/Vol] 0.61 mg/dL 0.55-1.02 [facility] Comment on above: The validity of the calculated GFR & GFRAA in patients over 70 years has not been determined. Clinical correlation is essential. Serum or plasma urea nitroge n measurement (mass/volume)Ordered By: Asad Jamison on 02-22-2022 Urea nitrogen [Mass/Vol] 30 mg/dL 7-18 [facility] [place] Thin prep Papanicolaou smear with manual screeningOrdered By: Asad Jamison on 02-22-2022 Thin prep Papanicolaou smear with manual screening 9 5-15 [facility] [place] Absolute lymphocyte counton 02-08-2022 Lymphocytes Auto (Unsp spec) [#/Vol] 1.37 10*3/uL 0.83-4.51 [facility] [place] Work Phone: Basophil percentageon 2021 Basophils/100 WBC (Bld) 1.3 % 0-1 [facility] Work Phone: Chloride [Moles/Vol] 109 mmol/L 98-107 [facility] Work Phone: Eosinophils/100 WBC (Bld) 4.0 % 0-5 [facility] [place] Work Phone: Glucose [Mass/Vol] 99 mg/dL 74-106 [facility] Work Phone: Neutrophils (Bld) [#/Vol] 4.1 10*3/uL 2.0-7.7 [facility] [place] Work Phone: Neutrophils/100 WBC (Bld) 59.3 % 47-70 [facility] [place] Work Phone: Potassium [Moles/Vol] 4.1 mmol/L 3.5-5.1 [facility] Work Phone: Sodium [Moles/Vol] 143 mmol/L 136-145 [facility] Work Phone: WBC (Bld) [#/Vol] 7.0 10*3/uL 4.4-11.0 [facility] Work Phone: Blood erythrocytes count (nu mber/volume)on 02-08-2022 RBC (Bld) [#/Vol] 5.00 10*6/uL 4.2-5.4 [facility] Work Phone: Blood hemoglobin measurement (mass/volume)on 02-08-2022 Hemoglobin (Bld) [Mass/Vol] 13.0 g/dL 12.0-15.0 [facility] [place] Work Phone: Blood lymphocytes/100 leukoc yteson 02-08-2022 Lymphocytes/100 WBC (Bld) 19.7 % 19-41 [facility] [place] [facility] Work Phone: Blood monocytes/100 leukocyt eson 02-08-2022 Monocytes/100 WBC (Bld) 15.4 % 0-10 [facility] Work Phone: Blood platelet mean volumeon 02-08-2022 Platelet mean volume (Bld) [Entitic vol] 8.6 fL 6.2-12.0 [facility] [place] [facility] Work Phone: [phone] Determination of erythrocyte mean corpuscular volume (MCV)on 02-08-2022 MCV (RBC) [Entitic vol] 92.4 fL 81-99 [facility] Work Phone: [phone] Hematocrit Auto (Bld) [Volum e fraction]on 02-08-2022 Hematocrit (Bld) [Volume fraction] 46.2 % 37-47 [facility] [place] [facility] Work Phone: [phone] Laboratory - Chemistry and C hemistry - challengeon 02-08-2022 CO2 [Moles/Vol] 24.0 mmol/L 21.0-32.0 [facility] [place] [facility] Work Phone: [phone] Urea nitrogen/Creatinine [Mass ratio] 38.5 mg/mg 10-20 [facility] [place] [facility] Work Phone: [phone] Laboratory - Hematology and Cell countson 02-08-2022 Erythrocyte distribution width (RBC) [Entitic vol] 51.8 fL 35.1-43.9 [facility] Work Phone: [phone] Erythrocyte distribution width (RBC) [Ratio] 15.3 % 11.6-14.6 [facility] [place] [facility] Work Phone: [phone] Immature granulocytes/100 WBC (Bld) 0.300 % 0.0-0.9 [facility] [place] [facility] Work Phone: [phone] Comment on above: IG% - Immature Granu locytes (promyelocytes, myelocytes and metamyelocytes) > 1% indicates that a LEFT SHIFT is Present. MCH (RBC) [Entitic mass] 26.0 pg 27.0-32.0 [facility] [place] [facility] Work Phone: [phone] Nucleated RBC/100 WBC (Bld) [Ratio] 0 % 0-5 [facility] [place] Work Phone: [phone] MCHC Auto (RBC) [Mass/Vol]on 02-08-2022 MCHC (RBC) [Mass/Vol] 28.1 g/dL 32-36 [facility] Work Phone: [phone] No Panel Informationon 02-08 Estimated GFR (MDRD) Amer 118 mL/min >60 [facility] [place] [facility] Work Phone: Comment on above: GFR Calc Estimated GFR (MDRD) Non-Af Amer 98 mL/min >60 [facility] [place] Work Phone: Comment on above: Non- GFR Calc Platelets bldon 02-08-2022 Platelets (Bld) [#/Vol] 504 10*3/uL 150-450 [facility] [place] Work Phone: Serum or plasma calcium jj urement (mass/volume)on 02-08-2022 Calcium [Mass/Vol] 10.0 mg/dL 8.5-10.1 [facility] Work Phone: Serum or plasma creatinine m easurement (mass/volume)on 02-08-2022 Creatinine [Mass/Vol] 0.65 mg/dL 0.55-1.02 [facility] Work Phone: Comment on above: The validity of the calculated GFR & GFRAA in patients over 70 years has not been determined. Clinical correlation is essential. Serum or plasma urea nitroge n measurement (mass/volume)on 02-08-2022 Urea nitrogen [Mass/Vol] 25 mg/dL 7-18 [facility] [place] [facility] Work Phone: Thin prep Papanicolaou smear with manual screeningon 02-08-2022 Thin prep Papanicolaou smear with manual screening 10 5-15 [facility] [place] Work Phone: Absolute lymphocyte counton 01-25-2022 Lymphocytes Auto (Unsp spec) [#/Vol] 1.61 10*3/uL 0.83-4.51 [facility] [place] Work Phone: Basophil percentageon 2021 Basophils/100 WBC (Bld) 1.6 % 0-1 [facility] Work Phone: Chloride [Moles/Vol] 110 mmol/L 98-107 [facility] Work Phone: Eosinophils/100 WBC (Bld) 3.6 % 0-5 [facility] [place] [facility] Work Phone: Glucose [Mass/Vol] 109 mg/dL 74-106 [facility] Work Phone: Comment on above: Fasting Glucose resu lt from 100 to 125 mg/dL suggests IMPAIRED HOMEOSTASIS per A.D.A. criteria. Neutrophils (Bld) [#/Vol] 3.8 10*3/uL 2.0-7.7 [facility] [place] Work Phone: Neutrophils/100 WBC (Bld) 55.5 % 47-70 [facility] [place] Work Phone: Potassium [Moles/Vol] 4.0 mmol/L 3.5-5.1 [facility] Work Phone: Sodium [Moles/Vol] 142 mmol/L 136-145 [facility] Work Phone: WBC (Bld) [#/Vol] 6.9 10*3/uL 4.4-11.0 [facility] Work Phone: Blood erythrocytes count (nu mber/volume)on 01-25-2022 RBC (Bld) [#/Vol] 4.66 10*6/uL 4.2-5.4 [facility] Work Phone: Blood hemoglobin measurement (mass/volume)on 01-25-2022 Hemoglobin (Bld) [Mass/Vol] 12.5 g/dL 12.0-15.0 [facility] [place] Work Phone: Blood lymphocytes/100 leukoc yteson 01-25-2022 Lymphocytes/100 WBC (Bld) 23.4 % 19-41 [facility] [place] [facility] Work Phone: Blood monocytes/100 leukocyt eson 01-25-2022 Monocytes/100 WBC (Bld) 15.3 % 0-10 [facility] Work Phone: Blood platelet mean volumeon 01-25-2022 Platelet mean volume (Bld) [Entitic vol] 9.0 fL 6.2-12.0 [facility] [place] [facility] Work Phone: Determination of erythrocyte mean corpuscular volume (MCV)on 01-25-2022 MCV (RBC) [Entitic vol] 88.6 fL 81-99 [facility] Work Phone: [phone] Hematocrit Auto (Bld) [Volum e fraction]on 01-25-2022 Hematocrit (Bld) [Volume fraction] 41.3 % 37-47 [facility] [place] [facility] Work Phone: [phone] Laboratory - Chemistry and C hemistry - challengeon 01-25-2022 CO2 [Moles/Vol] 23.0 mmol/L 21.0-32.0 [facility] [place] Work Phone: [phone] Urea nitrogen/Creatinine [Mass ratio] 38.3 mg/mg 10-20 [facility] [place] [facility] Work Phone: [phone] Laboratory - Hematology and Cell countson 01-25-2022 Erythrocyte distribution width (RBC) [Entitic vol] 49.9 fL 35.1-43.9 [facility] Work Phone: [phone] Erythrocyte distribution width (RBC) [Ratio] 15.4 % 11.6-14.6 [facility] [place] [facility] Work Phone: [phone] Immature granulocytes/100 WBC (Bld) 0.600 % 0.0-0.9 [facility] [place] [facility] Work Phone: [phone] Comment on above: IG% - Immature Granu locytes (promyelocytes, myelocytes and metamyelocytes) > 1% indicates that a LEFT SHIFT is Present. MCH (RBC) [Entitic mass] 26.8 pg 27.0-32.0 [facility] [place] [facility] Work Phone: [phone] Nucleated RBC/100 WBC (Bld) [Ratio] 0 % 0-5 [facility] [place] Work Phone: [phone] MCHC Auto (RBC) [Mass/Vol]on 01-25-2022 MCHC (RBC) [Mass/Vol] 30.3 g/dL 32-36 [facility]: [phone] Panel Informationon 01-25 Estimated GFR (MDRD) Amer 103 mL/min >60 [facility] Work Phone: [phone] Comment on above: GFR Calc Estimated GFR (MDRD) Non-Af Amer 85 mL/min >60 [facility] [place] [facility] Work Phone: Comment on above: Non- GFR Calc Platelets bldon 01-25-2022 Platelets (Bld) [#/Vol] 513 10*3/uL 150-450 [facility] [place] Work Phone: Serum or plasma calcium jj urement (mass/volume)on 01-25-2022 Calcium [Mass/Vol] 9.6 mg/dL 8.5-10.1 [facility] Work Phone: Serum or plasma creatinine m easurement (mass/volume)on 01-25-2022 Creatinine [Mass/Vol] 0.73 mg/dL 0.55-1.02 [facility] Work Phone: Comment on above: The validity of the calculated GFR & GFRAA in patients over 70 years has not been determined. Clinical correlation is essential. Serum or plasma urea nitroge n measurement (mass/volume)on 01-25-2022 Urea nitrogen [Mass/Vol] 28 mg/dL 7-18 [facility] Work Phone: Thin prep Papanicolaou smear with manual screeningon 01-25-2022 Thin prep Papanicolaou smear with manual screening 9 5-15 [facility] [place] [facility] Work Phone: Absolute lymphocyte counton 01-11-2022 Lymphocytes Auto (Unsp spec) [#/Vol] 1.57 10*3/uL 0.83-4.51 [facility] [place] [facility] Work Phone: Basophil percentageon 2021 Basophils/100 WBC (Bld) 1.3 % 0-1 [facility] Work Phone: Chloride [Moles/Vol] 107 mmol/L 98-107 [facility] Work Phone: Eosinophils/100 WBC (Bld) 4.7 % 0-5 [facility] Work Phone: Glucose [Mass/Vol] 89 mg/dL 74-106 [facility] Work Phone: Neutrophils (Bld) [#/Vol] 3.5 10*3/uL 2.0-7.7 [facility] Work Phone: Neutrophils/100 WBC (Bld) 56.0 % 47-70 [facility] Work Phone: Potassium [Moles/Vol] 4.0 mmol/L 3.5-5.1 [facility] Work Phone: Sodium [Moles/Vol] 139 mmol/L 136-145 [facility] Work Phone: WBC (Bld) [#/Vol] 6.3 10*3/uL 4.4-11.0 [facility] Work Phone: Blood erythrocytes count (nu mber/volume)on 01-11-2022 RBC (Bld) [#/Vol] 4.71 10*6/uL 4.2-5.4 [facility]: Blood hemoglobin measurement (mass/volume)on 01-11-2022 Hemoglobin (Bld) [Mass/Vol] 12.4 g/dL 12.0-15.0 [facility] Work Phone: Blood lymphocytes/100 leukoc yteson 01-11-2022 Lymphocytes/100 WBC (Bld) 24.8 % 19-41 [facility] Work Phone: [phone] Blood monocytes/100 leukocyt eson 01-11-2022 Monocytes/100 WBC (Bld) 12.7 % 0-10 [facility] Work Phone: [phone] Blood platelet mean volumeon 01-11-2022 Platelet mean volume (Bld) [Entitic vol] 8.8 fL 6.2-12.0 [facility] Work Phone: Determination of erythrocyte mean corpuscular volume (MCV)on 01-11-2022 MCV (RBC) [Entitic vol] 89.2 fL 81-99 [facility] Work Phone: Hematocrit Auto (Bld) [Volum e fraction]on 01-11-2022 Hematocrit (Bld) [Volume fraction] 42.0 % 37-47 [facility] [place] [facility] Work Phone: Laboratory - Chemistry and C hemistry - challengeon 01-11-2022 CO2 [Moles/Vol] 26.0 mmol/L 21.0-32.0 [facility] Work Phone: [phone] Urea nitrogen/Creatinine [Mass ratio] 45.6 mg/mg 10-20 [facility] Work Phone: [phone] Laboratory - Hematology and Cell countson 01-11-2022 Erythrocyte distribution width (RBC) [Entitic vol] 51.2 fL 35.1-43.9 [facility] Work Phone: [phone] Erythrocyte distribution width (RBC) [Ratio] 15.6 % 11.6-14.6 [facility] [place] [facility] Work Phone: [phone] Immature granulocytes/100 WBC (Bld) 0.500 % 0.0-0.9 [facility] Work Phone: [phone] Comment on above: IG% - Immature Granu locytes (promyelocytes, myelocytes and metamyelocytes) > 1% indicates that a LEFT SHIFT is Present. MCH (RBC) [Entitic mass] 26.3 pg 27.0-32.0 [facility] Work Phone: [phone] Nucleated RBC/100 WBC (Bld) [Ratio] 0 % 0-5 [facility] Work Phone: [phone] MCHC Auto (RBC) [Mass/Vol]on 01-11-2022 MCHC (RBC) [Mass/Vol] 29.5 g/dL 32-36 [facility] Work Phone: [phone] Panel Informationon 01-11 Estimated GFR (MDRD) Amer 158 mL/min >60 [facility] Work Phone: [phone] Comment on above: GFR Calc Estimated GFR (MDRD) Non-Af Amer 131 mL/min >60 [facility] Work Phone: [phone] Comment on above: Non- GFR Calc Platelets bldon 01-11-2022 Platelets (Bld) [#/Vol] 496 10*3/uL 150-450 [facility] Work Phone: Serum or plasma calcium jj urement (mass/volume)on 01-11-2022 Calcium [Mass/Vol] 9.7 mg/dL 8.5-10.1 [facility] Work Phone: Serum or plasma creatinine m easurement (mass/volume)on 01-11-2022 Creatinine [Mass/Vol] 0.50 mg/dL 0.55-1.02 [facility] Work Phone: Comment on above: The validity of the calculated GFR & GFRAA in patients over 70 years has not been determined. Clinical correlation is essential. Serum or plasma urea nitroge n measurement (mass/volume)on 01-11-2022 Urea nitrogen [Mass/Vol] 23 mg/dL 7-18 [facility] Work Phone: Thin prep Papanicolaou smear with manual screeningon 01-11-2022 Thin prep Papanicolaou smear with manual screening 6 5-15 [facility] Work Phone: Absolute lymphocyte counton 12-28-2021 Lymphocytes Auto (Unsp spec) [#/Vol] 1.56 10*3/uL 0.83-4.51 [facility] Work Phone: Basophil percentageon 2021 Basophils/100 WBC (Bld) 1.1 % 0-1 [facility] Work Phone: Chloride [Moles/Vol] 106 mmol/L 98-107 [facility] Work Phone: Eosinophils/100 WBC (Bld) 3.4 % 0-5 [facility] Work Phone: Glucose [Mass/Vol] 93 mg/dL 74-106 [facility] Work Phone: Neutrophils (Bld) [#/Vol] 4.3 10*3/uL 2.0-7.7 [facility] Work Phone: Neutrophils/100 WBC (Bld) 61.0 % 47-70 [facility] Work Phone: Potassium [Moles/Vol] 3.7 mmol/L 3.5-5.1 [facility] Work Phone: Sodium [Moles/Vol] 139 mmol/L 136-145 [facility] Work Phone: [phone] WBC (Bld) [#/Vol] 7.0 10*3/uL 4.4-11.0 [facility] Work Phone: Blood erythrocytes count (nu mber/volume)on 12-28-2021 RBC (Bld) [#/Vol] 4.69 10*6/uL 4.2-5.4 [facility]: Blood hemoglobin measurement (mass/volume)on 12-28-2021 Hemoglobin (Bld) [Mass/Vol] 12.6 g/dL 12.0-15.0 [facility] Work Phone: Blood lymphocytes/100 leukoc yteson 12-28-2021 Lymphocytes/100 WBC (Bld) 22.2 % 19-41 [facility] Work Phone: [phone] Blood monocytes/100 leukocyt eson 12-28-2021 Monocytes/100 WBC (Bld) 11.6 % 0-10 [facility] Work Phone: Blood platelet mean volumeon 12-28-2021 Platelet mean volume (Bld) [Entitic vol] 8.5 fL 6.2-12.0 [facility] Work Phone: Determination of erythrocyte mean corpuscular volume (MCV)on 12-28-2021 MCV (RBC) [Entitic vol] 90.2 fL 81-99 [facility] Work Phone: [phone] Hematocrit Auto (Bld) [Volum e fraction]on 12-28-2021 Hematocrit (Bld) [Volume fraction] 42.3 % 37-47 [facility] Work Phone: Laboratory - Chemistry and C hemistry - challengeon 12-28-2021 CO2 [Moles/Vol] 26.0 mmol/L 21.0-32.0 [facility] Work Phone: Urea nitrogen/Creatinine [Mass ratio] 34.9 mg/mg 10-20 [facility] Work Phone: Laboratory - Hematology and Cell countson 12-28-2021 Erythrocyte distribution width (RBC) [Entitic vol] 51.9 fL 35.1-43.9 [facility] Work Phone: [phone] Erythrocyte distribution width (RBC) [Ratio] 15.9 % 11.6-14.6 [facility] Work Phone: [phone] Immature granulocytes/100 WBC (Bld) 0.700 % 0.0-0.9 [facility] Work Phone: [phone] Comment on above: IG% - Immature Granu locytes (promyelocytes, myelocytes and metamyelocytes) > 1% indicates that a LEFT SHIFT is Present. MCH (RBC) [Entitic mass] 26.9 pg 27.0-32.0 [facility] Work Phone: [phone] Nucleated RBC/100 WBC (Bld) [Ratio] 0 % 0-5 [facility] Work Phone: [phone] MCHC Auto (RBC) [Mass/Vol]on 12-28-2021 MCHC (RBC) [Mass/Vol] 29.8 g/dL 32-36 [facility] Work Phone: No Panel Informationon 12-28 Estimated GFR (MDRD) Amer 129 mL/min >60 [facility] Work Phone: Comment on above: GFR Calc Estimated GFR (MDRD) Non-Af Amer 107 mL/min >60 [facility] Work Phone: [phone] Comment on above: Non- GFR Calc Platelets bldon 12-28-2021 Platelets (Bld) [#/Vol] 574 10*3/uL 150-450 [facility] Work Phone: [phone] Serum or plasma calcium jj urement (mass/volume)on 12-28-2021 Calcium [Mass/Vol] 9.7 mg/dL 8.5-10.1 [facility] Work Phone: [phone] Serum or plasma creatinine m easurement (mass/volume)on 12-28-2021 Creatinine [Mass/Vol] 0.60 mg/dL 0.55-1.02 [facility] Work Phone: Comment on above: The validity of the calculated GFR & GFRAA in patients over 70 years has not been determined. Clinical correlation is essential. Serum or plasma urea nitroge n measurement (mass/volume)on 12-28-2021 Urea nitrogen [Mass/Vol] 21 mg/dL 7-18 [facility] Work Phone: Thin prep Papanicolaou smear with manual screeningon 12-28-2021 Thin prep Papanicolaou smear with manual screening 7 5-15 [facility] Work Phone: Absolute lymphocyte counton 12-14-2021 Lymphocytes Auto (Unsp spec) [#/Vol] 1.34 10*3/uL 0.83-4.51 [facility] Work Phone: Basophil percentageon 2021 Basophils/100 WBC (Bld) 1.1 % 0-1 [facility] Work Phone: Chloride [Moles/Vol] 106 mmol/L 98-107 [facility] Work Phone: Eosinophils/100 WBC (Bld) 2.3 % 0-5 [facility] Work Phone: Glucose [Mass/Vol] 94 mg/dL 74-106 [facility] Work Phone: Neutrophils (Bld) [#/Vol] 6.7 10*3/uL 2.0-7.7 [facility] Work Phone: Neutrophils/100 WBC (Bld) 70.8 % 47-70 [facility] Work Phone: Potassium [Moles/Vol] 3.6 mmol/L 3.5-5.1 [facility] Work Phone: Sodium [Moles/Vol] 143 mmol/L 136-145 [facility] Work Phone: WBC (Bld) [#/Vol] 9.4 10*3/uL 4.4-11.0 [facility] Work Phone: Blood erythrocytes count (nu mber/volume)on 12-14-2021 RBC (Bld) [#/Vol] 4.55 10*6/uL 4.2-5.4 [facility] Work Phone: Blood hemoglobin measurement (mass/volume)on 12-14-2021 Hemoglobin (Bld) [Mass/Vol] 11.9 g/dL 12.0-15.0 [facility] Work Phone: Blood lymphocytes/100 leukoc yteson 12-14-2021 Lymphocytes/100 WBC (Bld) 14.2 % 19-41 [facility] Work Phone: Blood monocytes/100 leukocyt eson 12-14-2021 Monocytes/100 WBC (Bld) 11.0 % 0-10 [facility] Work Phone: Blood platelet mean volumeon 12-14-2021 Platelet mean volume (Bld) [Entitic vol] 9.0 fL 6.2-12.0 [facility] Work Phone: Determination of erythrocyte mean corpuscular volume (MCV)on 12-14-2021 MCV (RBC) [Entitic vol] 90.1 fL 81-99 [facility] Work Phone: Hematocrit Auto (Bld) [Volum e fraction]on 12-14-2021 Hematocrit (Bld) [Volume fraction] 41.0 % 37-47 [facility] Work Phone: Laboratory - Chemistry and C hemistry - challengeon 12-14-2021 CO2 [Moles/Vol] 30.0 mmol/L 21.0-32.0 [facility] Work Phone: Urea nitrogen/Creatinine [Mass ratio] 40.1 mg/mg 10-20 [facility] Work Phone: Laboratory - Hematology and Cell countson 12-14-2021 Erythrocyte distribution width (RBC) [Entitic vol] 53.1 fL 35.1-43.9 [facility] Work Phone: Erythrocyte distribution width (RBC) [Ratio] 15.9 % 11.6-14.6 [facility] Work Phone: [phone] Immature granulocytes/100 WBC (Bld) 0.600 % 0.0-0.9 [facility] Work Phone: Comment on above: IG% - Immature Granu locytes (promyelocytes, myelocytes and metamyelocytes) > 1% indicates that a LEFT SHIFT is Present. MCH (RBC) [Entitic mass] 26.2 pg 27.0-32.0 [facility] Work Phone: [phone] Nucleated RBC/100 WBC (Bld) [Ratio] 0 % 0-5 [facility] Work Phone: [phone] MCHC Auto (RBC) [Mass/Vol]on 12-14-2021 MCHC (RBC) [Mass/Vol] 29.0 g/dL 32-36 [facility] Work Phone: No Panel Informationon 12-14 Estimated GFR (MDRD) Amer 144 mL/min >60 [facility] Work Phone: Comment on above: GFR Calc Estimated GFR (MDRD) Non-Af Amer 119 mL/min >60 [facility] Work Phone: Comment on above: Non- GFR Calc Platelets bldon 12-14-2021 Platelets (Bld) [#/Vol] 567 10*3/uL 150-450 [facility] Work Phone: [phone] Serum or plasma calcium jj urement (mass/volume)on 12-14-2021 Calcium [Mass/Vol] 9.6 mg/dL 8.5-10.1 [facility] Work Phone: [phone] Serum or plasma creatinine m easurement (mass/volume)on 12-14-2021 Creatinine [Mass/Vol] 0.55 mg/dL 0.55-1.02 [facility] Work Phone: Comment on above: The validity of the calculated GFR & GFRAA in patients over 70 years has not been determined. Clinical correlation is essential. Serum or plasma urea nitroge n measurement (mass/volume)on 12-14-2021 Urea nitrogen [Mass/Vol] 22 mg/dL 7-18 [facility] Work Phone: Thin prep Papanicolaou smear with manual screeningon 12-14-2021 Thin prep Papanicolaou smear with manual screening 7 5-15 [facility] Work Phone: Absolute lymphocyte counton 11-16-2021 Lymphocytes Auto (Unsp spec) [#/Vol] 1.38 10*3/uL 0.83-4.51 [facility] Work Phone: Basophil percentageon 2021 Basophils/100 WBC (Bld) 1.1 % 0-1 [facility] Work Phone: Chloride [Moles/Vol] 106 mmol/L 98-107 [facility] Work Phone: Eosinophils/100 WBC (Bld) 3.7 % 0-5 [facility] Work Phone: Glucose [Mass/Vol] 100 mg/dL 74-106 [facility] Work Phone: Comment on above: Fasting Glucose resu lt from 100 to 125 mg/dL suggests IMPAIRED HOMEOSTASIS per A.D.A. criteria. Neutrophils (Bld) [#/Vol] 4.5 10*3/uL 2.0-7.7 [facility] Work Phone: Neutrophils/100 WBC (Bld) 61.9 % 47-70 [facility] Work Phone: Potassium [Moles/Vol] 3.7 mmol/L 3.5-5.1 [facility] Work Phone: Sodium [Moles/Vol] 142 mmol/L 136-145 [facility] Work Phone: WBC (Bld) [#/Vol] 7.3 10*3/uL 4.4-11.0 [facility] Work Phone: Blood erythrocytes count (nu mber/volume)on 11-16-2021 RBC (Bld) [#/Vol] 4.38 10*6/uL 4.2-5.4 [facility] Work Phone: Blood hemoglobin measurement (mass/volume)on 11-16-2021 Hemoglobin (Bld) [Mass/Vol] 11.6 g/dL 12.0-15.0 [facility] Work Phone: Blood lymphocytes/100 leukoc yteson 11-16-2021 Lymphocytes/100 WBC (Bld) 18.9 % 19-41 [facility] Work Phone: Blood monocytes/100 leukocyt eson 11-16-2021 Monocytes/100 WBC (Bld) 13.0 % 0-10 [facility] Work Phone: Blood platelet mean volumeon 11-16-2021 Platelet mean volume (Bld) [Entitic vol] 8.5 fL 6.2-12.0 [facility] Work Phone: Determination of erythrocyte mean corpuscular volume (MCV)on 11-16-2021 MCV (RBC) [Entitic vol] 90.6 fL 81-99 [facility] Work Phone: Hematocrit Auto (Bld) [Volum e fraction]on 11-16-2021 Hematocrit (Bld) [Volume fraction] 39.7 % 37-47 [facility] Work Phone: Laboratory - Chemistry and C hemistry - challengeon 11-16-2021 CO2 [Moles/Vol] 30.0 mmol/L 21.0-32.0 [facility] Work Phone: Urea nitrogen/Creatinine [Mass ratio] 23.4 mg/mg 10-20 [facility] Work Phone: Laboratory - Hematology and Cell countson 11-16-2021 Erythrocyte distribution width (RBC) [Entitic vol] 54.2 fL 35.1-43.9 [facility] Work Phone: [phone] Erythrocyte distribution width (RBC) [Ratio] 16.2 % 11.6-14.6 [facility] Work Phone: [phone] Immature granulocytes/100 WBC (Bld) 1.400 % 0.0-0.9 [facility] Work Phone: Comment on above: IG% - Immature Granu locytes (promyelocytes, myelocytes and metamyelocytes) > 1% indicates that a LEFT SHIFT is Present. MCH (RBC) [Entitic mass] 26.5 pg 27.0-32.0 [facility] Work Phone: Nucleated RBC/100 WBC (Bld) [Ratio] 0 % 0-5 [facility] Work Phone: [phone] MCHC Auto (RBC) [Mass/Vol]on 11-16-2021 MCHC (RBC) [Mass/Vol] 29.2 g/dL 32-36 [facility] Work Phone: No Panel Informationon 11-16 Estimated GFR (MDRD) Amer 142 mL/min >60 [facility] Work Phone: Comment on above: GFR Calc Estimated GFR (MDRD) Non-Af Amer 117 mL/min >60 [facility] Work Phone: Comment on above: Non- GFR Calc Platelets bldon 11-16-2021 Platelets (Bld) [#/Vol] 584 10*3/uL 150-450 [facility] Work Phone: Serum or plasma calcium jj urement (mass/volume)on 11-16-2021 Calcium [Mass/Vol] 9.4 mg/dL 8.5-10.1 [facility] Work Phone: [phone] Serum or plasma creatinine m easurement (mass/volume)on 11-16-2021 Creatinine [Mass/Vol] 0.56 mg/dL 0.55-1.02 [facility] Work Phone: Comment on above: The validity of the calculated GFR & GFRAA in patients over 70 years has not been determined. Clinical correlation is essential. Serum or plasma urea nitroge n measurement (mass/volume)on 11-16-2021 Urea nitrogen [Mass/Vol] 13 mg/dL 7-18 [facility] Work Phone: Thin prep Papanicolaou smear with manual screeningon 11-16-2021 Thin prep Papanicolaou smear with manual screening 6 5-15 [facility] Work Phone: Absolute lymphocyte counton 11-02-2021 Lymphocytes Auto (Unsp spec) [#/Vol] 1.38 10*3/uL 0.83-4.51 [facility] Work Phone: Basophil percentageon 2021 Basophils/100 WBC (Bld) 1.1 % 0-1 [facility] Work Phone: Chloride [Moles/Vol] 100 mmol/L 98-107 [facility] Work Phone: Eosinophils/100 WBC (Bld) 4.3 % 0-5 [facility] Work Phone: Glucose [Mass/Vol] 78 mg/dL 74-106 [facility] Work Phone: Neutrophils (Bld) [#/Vol] 6.8 10*3/uL 2.0-7.7 [facility] Work Phone: Neutrophils/100 WBC (Bld) 69.5 % 47-70 [facility] Work Phone: Potassium [Moles/Vol] 3.5 mmol/L 3.5-5.1 [facility] Work Phone: Sodium [Moles/Vol] 138 mmol/L 136-145 [facility] Work Phone: WBC (Bld) [#/Vol] 9.8 10*3/uL 4.4-11.0 [facility] Work Phone: Blood erythrocytes count (nu mber/volume)on 11-02-2021 RBC (Bld) [#/Vol] 4.58 10*6/uL 4.2-5.4 [facility] Work Phone: Blood hemoglobin measurement (mass/volume)on 11-02-2021 Hemoglobin (Bld) [Mass/Vol] 12.2 g/dL 12.0-15.0 [facility] Work Phone: Blood lymphocytes/100 leukoc yteson 11-02-2021 Lymphocytes/100 WBC (Bld) 14.1 % 19-41 [facility] Work Phone: Blood monocytes/100 leukocyt eson 11-02-2021 Monocytes/100 WBC (Bld) 9.1 % 0-10 [facility] Work Phone: Blood platelet mean volumeon 11-02-2021 Platelet mean volume (Bld) [Entitic vol] 8.2 fL 6.2-12.0 [facility] Work Phone: Determination of erythrocyte mean corpuscular volume (MCV)on 11-02-2021 MCV (RBC) [Entitic vol] 90.2 fL 81-99 [facility] Work Phone: [phone] Hematocrit Auto (Bld) [Volum e fraction]on 11-02-2021 Hematocrit (Bld) [Volume fraction] 41.3 % 37-47 [facility] Work Phone: Laboratory - Chemistry and C hemistry - challengeon 11-02-2021 CO2 [Moles/Vol] 31.0 mmol/L 21.0-32.0 [facility] Work Phone: Urea nitrogen/Creatinine [Mass ratio] 35.8 mg/mg 10-20 [facility] Work Phone: [phone] Laboratory - Hematology and Cell countson 11-02-2021 Erythrocyte distribution width (RBC) [Entitic vol] 51.6 fL 35.1-43.9 [facility] Work Phone: [phone] Erythrocyte distribution width (RBC) [Ratio] 15.7 % 11.6-14.6 [facility] Work Phone: Immature granulocytes/100 WBC (Bld) 1.900 % 0.0-0.9 [facility] Work Phone: Comment on above: IG% - Immature Granu locytes (promyelocytes, myelocytes and metamyelocytes) > 1% indicates that a LEFT SHIFT is Present. MCH (RBC) [Entitic mass] 26.6 pg 27.0-32.0 [facility] Work Phone: [phone] Nucleated RBC/100 WBC (Bld) [Ratio] 0 % 0-5 [facility] Work Phone: [phone] MCHC Auto (RBC) [Mass/Vol]on 11-02-2021 MCHC (RBC) [Mass/Vol] 29.5 g/dL 32-36 [facility] Work Phone: No Panel Informationon 11-02 Estimated GFR (MDRD) Amer 133 mL/min >60 [facility] Work Phone: [phone] Comment on above: GFR Calc Estimated GFR (MDRD) Non-Af Amer 110 mL/min >60 [facility] Work Phone: Comment on above: Non- GFR Calc Platelets bldon 11-02-2021 Platelets (Bld) [#/Vol] 545 10*3/uL 150-450 [facility] Work Phone: [phone] Serum or plasma calcium jj urement (mass/volume)on 11-02-2021 Calcium [Mass/Vol] 9.6 mg/dL 8.5-10.1 [facility] Work Phone: [phone] Serum or plasma creatinine m easurement (mass/volume)on 11-02-2021 Creatinine [Mass/Vol] 0.59 mg/dL 0.55-1.02 [facility] Work Phone: [phone] Comment on above: The validity of the calculated GFR & GFRAA in patients over 70 years has not been determined. Clinical correlation is essential. Serum or plasma urea nitroge n measurement (mass/volume)on 11-02-2021 Urea nitrogen [Mass/Vol] 21 mg/dL 7-18 [facility] Work Phone: [phone] Thin prep Papanicolaou smear with manual screeningon 11-02-2021 Thin prep Papanicolaou smear with manual screening 7 5-15 [facility] Work Phone: [phone] Absolute lymphocyte counton 10-25-2021 Lymphocytes Auto (Unsp spec) [#/Vol] 1.29 10*3/uL 0.83-4.51 [facility] Work Phone: Basophil percentageon 2021 Basophils/100 WBC (Bld) 0.8 % 0-1 [facility] Work Phone: Chloride [Moles/Vol] 106 mmol/L 98-107 [facility] Work Phone: Eosinophils/100 WBC (Bld) 2.0 % 0-5 [facility] Work Phone: Glucose [Mass/Vol] 106 mg/dL 74-106 [facility] Work Phone: Comment on above: Fasting Glucose resu lt from 100 to 125 mg/dL suggests IMPAIRED HOMEOSTASIS per A.D.A. criteria. Neutrophils (Bld) [#/Vol] 13.8 10*3/uL 2.0-7.7 [facility] Work Phone: Neutrophils/100 WBC (Bld) 79.4 % 47-70 [facility] Work Phone: Potassium [Moles/Vol] 4.3 mmol/L 3.5-5.1 [facility] Work Phone: Comment on above: Slight Hemolysis, Re sult may be falsely increased. Sodium [Moles/Vol] 137 mmol/L 136-145 [facility] Work Phone: WBC (Bld) [#/Vol] 17.3 10*3/uL 4.4-11.0 [facility] Work Phone: Blood erythrocytes count (nu mber/volume)on 10-25-2021 RBC (Bld) [#/Vol] 4.91 10*6/uL 4.2-5.4 [facility] Work Phone: Blood hemoglobin measurement (mass/volume)on 10-25-2021 Hemoglobin (Bld) [Mass/Vol] 13.4 g/dL 12.0-15.0 [facility] Work Phone: Blood lymphocytes/100 leukoc yteson 10-25-2021 Lymphocytes/100 WBC (Bld) 7.5 % 19-41 [facility] Work Phone: [phone] Blood monocytes/100 leukocyt eson 10-25-2021 Monocytes/100 WBC (Bld) 7.9 % 0-10 [facility] Work Phone: [phone] Blood platelet mean volumeon 10-25-2021 Platelet mean volume (Bld) [Entitic vol] 8.6 fL 6.2-12.0 [facility] Work Phone: Determination of erythrocyte mean corpuscular volume (MCV)on 10-25-2021 MCV (RBC) [Entitic vol] 87.8 fL 81-99 [facility] Work Phone: [phone] Hematocrit Auto (Bld) [Volum e fraction]on 10-25-2021 Hematocrit (Bld) [Volume fraction] 43.1 % 37-47 [facility] Work Phone: Laboratory - Chemistry and C hemistry - challengeon 10-25-2021 CO2 [Moles/Vol] 24.0 mmol/L 21.0-32.0 [facility] Work Phone: [phone] Urea nitrogen/Creatinine [Mass ratio] 18.2 mg/mg 10-20 [facility] Work Phone: [phone] Laboratory - Hematology and Cell countson 10-25-2021 Erythrocyte distribution width (RBC) [Entitic vol] 49.2 fL 35.1-43.9 [facility] Work Phone: [phone] Erythrocyte distribution width (RBC) [Ratio] 15.5 % 11.6-14.6 [facility] Work Phone: [phone] Immature granulocytes/100 WBC (Bld) 2.400 % 0.0-0.9 [facility] Work Phone: [phone] Comment on above: IG% - Immature Granu locytes (promyelocytes, myelocytes and metamyelocytes) > 1% indicates that a LEFT SHIFT is Present. MCH (RBC) [Entitic mass] 27.3 pg 27.0-32.0 [facility] Work Phone: Nucleated RBC/100 WBC (Bld) [Ratio] 0 % 0-5 [facility] Work Phone: MCHC Auto (RBC) [Mass/Vol]on 10-25-2021 MCHC (RBC) [Mass/Vol] 31.1 g/dL 32-36 [facility] Work Phone: No Panel Informationon 10-25 Estimated GFR (MDRD) Amer 84 mL/min >60 [facility] Work Phone: Comment on above: GFR Calc Estimated GFR (MDRD) Non-Af Amer 69 mL/min >60 [facility] Work Phone: Comment on above: Non- GFR Calc Platelets bldon 10-25-2021 Platelets (Bld) [#/Vol] 614 10*3/uL 150-450 [facility] Work Phone: Serum or plasma calcium jj urement (mass/volume)on 10-25-2021 Calcium [Mass/Vol] 8.9 mg/dL 8.5-10.1 [facility] Work Phone: Serum or plasma creatinine m easurement (mass/volume)on 10-25-2021 Creatinine [Mass/Vol] 0.88 mg/dL 0.55-1.02 [facility] Work Phone: Comment on above: The validity of the calculated GFR & GFRAA in patients over 70 years has not been determined. Clinical correlation is essential. Serum or plasma urea nitroge n measurement (mass/volume)on 10-25-2021 Urea nitrogen [Mass/Vol] 16 mg/dL 7-18 [facility] Work Phone: Thin prep Papanicolaou smear with manual screeningon 10-25-2021 Thin prep Papanicolaou smear with manual screening 7 5-15 [facility] Work Phone: Absolute lymphocyte counton 10-18-2021 Lymphocytes Auto (Unsp spec) [#/Vol] 2.05 10*3/uL 0.83-4.51 [facility] Work Phone: Basophil percentageon 2021 Basophil percentage Not Reportable [facility] Work Phone: Chloride [Moles/Vol] 97 mmol/L 98-107 [facility] Work Phone: Glucose [Mass/Vol] 120 mg/dL 74-106 [facility] Work Phone: Comment on above: Fasting Glucose resu lt from 100 to 125 mg/dL suggests IMPAIRED HOMEOSTASIS per A.D.A. criteria. Neutrophils (Bld) [#/Vol] 12.6 10*3/uL 2.0-7.7 [facility] Work Phone: Potassium [Moles/Vol] 4.7 mmol/L 3.5-5.1 [facility] Work Phone: Sodium [Moles/Vol] 131 mmol/L 136-145 [facility] Work Phone: WBC (Bld) [#/Vol] 18.6 10*3/uL 4.4-11.0 [facility] Work Phone: Bilirubin Test strip Ql (U)o n 10-18-2021 Bilirubin Ql (U) Negative Negative [facility] Work Phone: Blood eosinophils/100 leukoc yteson 10-18-2021 Eosinophils/100 WBC (Bld) 2 % 0-5 [facility] Work Phone: Blood erythrocytes count (nu mber/volume)on 10-18-2021 RBC (Bld) [#/Vol] 4.24 10*6/uL 4.2-5.4 [facility] Work Phone: Blood hemoglobin measurement (mass/volume)on 10-18-2021 Hemoglobin (Bld) [Mass/Vol] 11.6 g/dL 12.0-15.0 [facility] Work Phone: Blood lymphocytes/100 leukoc yteson 10-18-2021 Lymphocytes/100 WBC (Bld) 11 % 19-41 [facility] Work Phone: Blood metamyelocytes/100 papa kocyteson 10-18-2021 Metamyelocytes/100 WBC (Bld) 6 % 0-1 [facility] Work Phone: Blood monocytes/100 leukocyt eson 10-18-2021 Monocytes/100 WBC (Bld) 8 % 0-10 [facility] Work Phone: Blood platelet adequacy dete ction by light microscopyon 10-18-2021 Platelets LM Ql (Bld) MOD INC ADEQ [facility] [facility]: Blood platelet mean volumeon 10-18-2021 Platelet mean volume (Bld) [Entitic vol] 8.6 fL 6.2-12.0 [facility] Work Phone: Blood promyelocytes/100 leuk ocyteson 10-18-2021 Promyelocytes/100 WBC (Bld) 1 % 0-0 [facility] Work Phone: Blood segmented neutrophils/ 100 leukocyteson 10-18-2021 Segmented neutrophils/100 WBC (Bld) 68 % 47-70 [facility] Work Phone: Culture, urineon 10-18-2021 Bacteria identified Cx Nom (U) Mixed Gram Pos & Gram Neg Org [facility] Work Phone: Bacteria identified Cx Nom (U) Yeast [facility] Work Phone: Determination of erythrocyte mean corpuscular volume (MCV)on 10-18-2021 MCV (RBC) [Entitic vol] 89.6 fL 81-99 [facility] Work Phone: Hematocrit Auto (Bld) [Volum e fraction]on 10-18-2021 Hematocrit (Bld) [Volume fraction] 38.0 % 37-47 [facility] Work Phone: Ketones Test strip Ql (U)on 10-18-2021 Ketones Ql (U) Negative Negative [facility] Work Phone: Laboratory - Chemistry and C hemistry - challengeon 10-18-2021 CO2 [Moles/Vol] 24.0 mmol/L 21.0-32.0 [facility] Work Phone: Urea nitrogen/Creatinine [Mass ratio] 49.9 mg/mg 10-20 [facility] Work Phone: Laboratory - Hematology and Cell countson 10-18-2021 Erythrocyte distribution width (RBC) [Entitic vol] 48.5 fL 35.1-43.9 [facility] Work Phone: Erythrocyte distribution width (RBC) [Ratio] 14.9 % 11.6-14.6 [facility] Work Phone: MCH (RBC) [Entitic mass] 27.4 pg 27.0-32.0 [facility] Work Phone: Myelocytes/100 WBC (Bld) 4 % 0-0 [facility] Work Phone: MCHC Auto (RBC) [Mass/Vol]on 10-18-2021 MCHC (RBC) [Mass/Vol] 30.5 g/dL 32-36 [facility] Work Phone: Nitrite Test strip Ql (U)on 10-18-2021 Nitrite Ql (U) Negative Negative [facility] Work Phone: No Panel Informationon 10-18 Estimated GFR (MDRD) Amer 129 mL/min >60 [facility] Work Phone: Comment on above: GFR Calc Estimated GFR (MDRD) Non-Af Amer 107 mL/min >60 [facility] Work Phone: Comment on above: Non- GFR Calc Platelets bldon 10-18-2021 Platelets (Bld) [#/Vol] 561 10*3/uL 150-450 [facility] Work Phone: Protein Test strip Ql (U)on 10-18-2021 Protein Ql (U) 15 mg/dl Negative [facility] Work Phone: RBC morphologyon 10-18-2021 RBC morphology finding Nom (Bld) NORM C+C NORMAL NORM C&C [facility] Work Phone: Review by pathologiston 10-03 Pathologist review Shaan (Unsp spec) [Interp] Reviewed [facility] Work Phone: Comment on above: Previous reported re sult: Kori isaacs Edited by: RGOOD on 10/19/21:1241Leukocytosis with Neutrophilic left shift. Thrombocytosis.Clinical correlation necessary.Je Browne M.D. 10/19/21 AMENDED REPORT 10/19/21 1241 PATH REV previously reported as: Kori isaacs Serum or plasma calcium jj urement (mass/volume)on 10-18-2021 Calcium [Mass/Vol] 9.6 mg/dL 8.5-10.1 [facility] Work Phone: Serum or plasma creatinine m easurement (mass/volume)on 10-18-2021 Creatinine [Mass/Vol] 0.60 mg/dL 0.55-1.02 [facility] Work Phone: Comment on above: The validity of the calculated GFR & GFRAA in patients over 70 years has not been determined. Clinical correlation is essential. Serum or plasma urea nitroge n measurement (mass/volume)on 10-18-2021 Urea nitrogen [Mass/Vol] 30 mg/dL 7-18 [facility] Work Phone: Thin prep Papanicolaou smear with manual screeningon 10-18-2021 Thin prep Papanicolaou smear with manual screening 10 5-15 [facility] Work Phone: [phone] Total cell counton 2 Cells counted Molgen (Bld/Tiss) [#] 100 MANUAL DIFF [facility] Work Phone: Urine blood detectionon 10-03 RBC Ql (U) Negative Negative [facility] Work Phone: Urine clarityon 10-18-2021 Clarity (U) Clear Clear [facility] Work Phone: Urine color determinationon 10-18-2021 Color (U) Yellow Yellow [facility] Work Phone: Urine glucose detectionon Glucose Ql (U) Normal mg/dl Normal [facility] Work Phone: Urine leukocyte esterase det ection by dipstickon 10-18-2021 Leukocyte esterase Test strip Ql (U) Negative Negative [facility] Work Phone: Urine pHon 10-18-2021 pH (U) 6.0 [pH] 5.0 - 8.0 [facility] Work Phone: Urine specific gravity measu rementon 10-18-2021 Specific gravity (U) [Rel density] 1.015 1.002-1.030 [facility] Work Phone: Urobilinogen Auto test strip Ql (U)on 10-18-2021 Urobilinogen Ql (U) Normal mg/dl Normal [facility] Work Phone: Absolute lymphocyte counton 10-11-2021 Lymphocytes Auto (Unsp spec) [#/Vol] 1.28 10*3/uL 0.83-4.51 [facility] Work Phone: Basophil percentageon 2021 Basophils/100 WBC (Bld) 0.5 % 0-1 [facility] Work Phone: Bilirubin [Mass/Vol] 0.40 mg/dL 0.20-1.00 [facility] Work Phone: Comment on above: For patients on eltr ombopag therapy, use of Dimension [place] TBIL is not recommended. Chloride [Moles/Vol] 102 mmol/L 98-107 [facility] Work Phone: Eosinophils/100 WBC (Bld) 3.5 % 0-5 [facility] Work Phone: Glucose [Mass/Vol] 130 mg/dL 74-106 [facility] Work Phone: Comment on above: Fasting Glucose resu lt greater than or equal to 126 mg/dL suggests DIABETES MELLITUS per A.D.A. criteria. Neutrophils (Bld) [#/Vol] 10.0 10*3/uL 2.0-7.7 [facility] Work Phone: Neutrophils/100 WBC (Bld) 74.6 % 47-70 [facility] Work Phone: Potassium [Moles/Vol] 4.0 mmol/L 3.5-5.1 [facility] Work Phone: Protein [Mass/Vol] 6.3 g/dL 6.4-8.2 [facility] Work Phone: Sodium [Moles/Vol] 137 mmol/L 136-145 [facility] Work Phone: WBC (Bld) [#/Vol] 13.4 10*3/uL 4.4-11.0 [facility] Work Phone: Blood erythrocytes count (nu mber/volume)on 10-11-2021 RBC (Bld) [#/Vol] 4.57 10*6/uL 4.2-5.4 [facility] Work Phone: Blood hemoglobin measurement (mass/volume)on 10-11-2021 Hemoglobin (Bld) [Mass/Vol] 12.4 g/dL 12.0-15.0 [facility] Work Phone: Blood lymphocytes/100 leukoc yteson 10-11-2021 Lymphocytes/100 WBC (Bld) 9.6 % 19-41 [facility] Work Phone: [phone] Blood monocytes/100 leukocyt eson 10-11-2021 Monocytes/100 WBC (Bld) 9.0 % 0-10 [facility] Work Phone: Blood platelet mean volumeon 10-11-2021 Platelet mean volume (Bld) [Entitic vol] 9.2 fL 6.2-12.0 [facility] Work Phone: Determination of erythrocyte mean corpuscular volume (MCV)on 10-11-2021 MCV (RBC) [Entitic vol] 90.2 fL 81-99 [facility] Work Phone: [phone] Hematocrit Auto (Bld) [Volum e fraction]on 10-11-2021 Hematocrit (Bld) [Volume fraction] 41.2 % 37-47 [facility] Work Phone: [phone] Laboratory - Chemistry and C hemistry - challengeon 10-11-2021 ALP [Catalytic activity/Vol] 79 U/L 45-117 [facility] Work Phone: [phone] ALT [Catalytic activity/Vol] 120 U/L 13-56 [facility] Work Phone: [phone] CO2 [Moles/Vol] 27.0 mmol/L 21.0-32.0 [facility] Work Phone: [phone] Globulin (S) [Mass/Vol] 4.5 g/dL 2.2-4.2 [facility] Work Phone: [phone] Urea nitrogen/Creatinine [Mass ratio] 64.6 mg/mg 10-20 [facility] Work Phone: [phone] Laboratory - Hematology and Cell countson 10-11-2021 Erythrocyte distribution width (RBC) [Entitic vol] 47.8 fL 35.1-43.9 [facility] Work Phone: [phone] Erythrocyte distribution width (RBC) [Ratio] 14.5 % 11.6-14.6 [facility] Work Phone: [phone] Immature granulocytes/100 WBC (Bld) 2.800 % 0.0-0.9 [facility] Work Phone: [phone] Comment on above: IG% - Immature Granu locytes (promyelocytes, myelocytes and metamyelocytes) > 1% indicates that a LEFT SHIFT is Present. MCH (RBC) [Entitic mass] 27.1 pg 27.0-32.0 [facility] Work Phone: [phone] Nucleated RBC/100 WBC (Bld) [Ratio] 0 % 0-5 [facility] Work Phone: [phone] MCHC Auto (RBC) [Mass/Vol]on 10-11-2021 MCHC (RBC) [Mass/Vol] 30.1 g/dL 32-36 [facility]: No Panel Informationon 10-11 Estimated GFR (MDRD) Amer 168 mL/min >60 [facility] Work Phone: Comment on above: GFR Calc Estimated GFR (MDRD) Non-Af Amer 139 mL/min >60 [facility] Work Phone: Comment on above: Non- GFR Calc Platelets bldon 10-11-2021 Platelets (Bld) [#/Vol] 369 10*3/uL 150-450 [facility] Work Phone: Serum or plasma albumin jj urement (mass/volume)on 10-11-2021 Albumin [Mass/Vol] 1.8 g/dL 3.2-5.0 [facility] Work Phone: Serum or plasma albumin/glob ulin mass ratioon 10-11-2021 Albumin/Globulin [Mass ratio] 0.4 {ratio} 0.9-2.4 [facility] Work Phone: Serum or plasma calcium jj urement (mass/volume)on 10-11-2021 Calcium [Mass/Vol] 8.9 mg/dL 8.5-10.1 [facility] Work Phone: Serum or plasma creatinine m easurement (mass/volume)on 10-11-2021 Creatinine [Mass/Vol] 0.48 mg/dL 0.55-1.02 [facility] Work Phone: Comment on above: The validity of the calculated GFR & GFRAA in patients over 70 years has not been determined. Clinical correlation is essential. Serum or plasma urea nitroge n measurement (mass/volume)on 10-11-2021 Urea nitrogen [Mass/Vol] 31 mg/dL 7-18 [facility] Work Phone: Thin prep Papanicolaou smear with manual screeningon 10-11-2021 Thin prep Papanicolaou smear with manual screening 55 U/L 15-37 [facility] Work Phone: Thin prep Papanicolaou smear with manual screening 8 5-15 [facility] Work Phone: Absolute lymphocyte counton 09-28-2021 Lymphocytes Auto (Unsp spec) [#/Vol] 1.32 10*3/uL 0.83-4.51 [facility] Work Phone: Basophil percentageon 2021 Basophils/100 WBC (Bld) 0.5 % 0-1 [facility] Work Phone: Chloride [Moles/Vol] 106 mmol/L 98-107 [facility] Work Phone: Eosinophils/100 WBC (Bld) 0.1 % 0-5 [facility] Work Phone: Glucose [Mass/Vol] 115 mg/dL 74-106 [facility] Work Phone: Comment on above: Fasting Glucose resu lt from 100 to 125 mg/dL suggests IMPAIRED HOMEOSTASIS per A.D.A. criteria. Neutrophils (Bld) [#/Vol] 11.5 10*3/uL 2.0-7.7 [facility] Work Phone: Neutrophils/100 WBC (Bld) 77.5 % 47-70 [facility] Work Phone: Potassium [Moles/Vol] 4.0 mmol/L 3.5-5.1 [facility] Work Phone: Sodium [Moles/Vol] 138 mmol/L 136-145 [facility] Work Phone: WBC (Bld) [#/Vol] 14.8 10*3/uL 4.4-11.0 [facility] Work Phone: Blood erythrocytes count (nu mber/volume)on 09-28-2021 RBC (Bld) [#/Vol] 5.25 10*6/uL 4.2-5.4 [facility] Work Phone: Blood hemoglobin measurement (mass/volume)on 09-28-2021 Hemoglobin (Bld) [Mass/Vol] 14.7 g/dL 12.0-15.0 [facility] Work Phone: Blood lymphocytes/100 leukoc yteson 09-28-2021 Lymphocytes/100 WBC (Bld) 8.9 % 19-41 [facility] Work Phone: Blood monocytes/100 leukocyt eson 09-28-2021 Monocytes/100 WBC (Bld) 8.6 % 0-10 [facility] Work Phone: [phone] Blood platelet mean volumeon 09-28-2021 Platelet mean volume (Bld) [Entitic vol] 9.1 fL 6.2-12.0 [facility] Work Phone: Determination of erythrocyte mean corpuscular volume (MCV)on 09-28-2021 MCV (RBC) [Entitic vol] 88.8 fL 81-99 [facility] Work Phone: Glucose Glucometer (BldC) [M ass/Vol]on 09-28-2021 Glucose [Mass/Vol] 188 mg/dL 74-106 [facility] Work Phone: Comment on above: MANAGEMENT OF PATIEN T CARE PER NURSING PROTOCOL Hematocrit Auto (Bld) [Volum e fraction]on 09-28-2021 Hematocrit (Bld) [Volume fraction] 46.6 % 37-47 [facility] Work Phone: Laboratory - Chemistry and C hemistry - challengeon 09-28-2021 CO2 [Moles/Vol] 24.0 mmol/L 21.0-32.0 [facility] Work Phone: Urea nitrogen/Creatinine [Mass ratio] 41.0 mg/mg 10-20 [facility] Work Phone: [phone] Laboratory - Hematology and Cell countson 09-28-2021 Erythrocyte distribution width (RBC) [Entitic vol] 43.8 fL 35.1-43.9 [facility] Work Phone: [phone] Erythrocyte distribution width (RBC) [Ratio] 13.5 % 11.6-14.6 [facility] Work Phone: [phone] Immature granulocytes/100 WBC (Bld) 4.400 % 0.0-0.9 [facility] Work Phone: Comment on above: IG% - Immature Granu locytes (promyelocytes, myelocytes and metamyelocytes) > 1% indicates that a LEFT SHIFT is Present. MCH (RBC) [Entitic mass] 28.0 pg 27.0-32.0 [facility] Work Phone: Nucleated RBC/100 WBC (Bld) [Ratio] 0 % 0-5 [facility] Work Phone: [phone] MCHC Auto (RBC) [Mass/Vol]on 09-28-2021 MCHC (RBC) [Mass/Vol] 31.5 g/dL 32-36 [facility] Work Phone: No Panel Informationon 09-28 Estimated Creatinine Clearance Calc 92.08 ml/min [facility] Work Phone: Estimated GFR (MDRD) Amer 147 mL/min >60 [facility] Work Phone: Comment on above: GFR Calc Estimated GFR (MDRD) Non-Af Amer 122 mL/min >60 [facility] Work Phone: Comment on above: Non- GFR Calc Platelets bldon 09-28-2021 Platelets (Bld) [#/Vol] 490 10*3/uL 150-450 [facility] Work Phone: [phone] Serum or plasma calcium jj urement (mass/volume)on 09-28-2021 Calcium [Mass/Vol] 9.2 mg/dL 8.5-10.1 [facility] Work Phone: [phone] Serum or plasma creatinine m easurement (mass/volume)on 09-28-2021 Creatinine [Mass/Vol] 0.54 mg/dL 0.55-1.02 [facility] Work Phone: Comment on above: The validity of the calculated GFR & GFRAA in patients over 70 years has not been determined. Clinical correlation is essential. Serum or plasma urea nitroge n measurement (mass/volume)on 09-28-2021 Urea nitrogen [Mass/Vol] 22 mg/dL 7-18 [facility] Work Phone: Thin prep Papanicolaou smear with manual screeningon 09-28-2021 Thin prep Papanicolaou smear with manual screening 8 5-15 [facility] Work Phone: Blood lymphocytes/100 leukoc yteson 09-26-2021 Lymphocytes/100 WBC (Bld) 7 % 19-41 [facility] Work Phone: Blood monocytes/100 leukocyt eson 09-26-2021 Monocytes/100 WBC (Bld) 15 % 0-10 [facility] Work Phone: Blood platelet adequacy dete ction by light microscopyon 09-26-2021 Platelets LM Ql (Bld) MKD INC ADEQ [facility] Work Phone: Blood segmented neutrophils/ 100 leukocyteson 09-26-2021 Segmented neutrophils/100 WBC (Bld) 77 % 47-70 [facility] Work Phone: Laboratory - Hematology and Cell countson 09-26-2021 Myelocytes/100 WBC (Bld) 1 % 0-0 [facility] Work Phone: RBC morphologyon 09-26-2021 RBC morphology finding Nom (Bld) NORM C+C NORMAL NORM C&C [facility] Work Phone: Review by pathologiston 09-04 Pathologist review Shaan (Unsp spec) [Interp] Reviewed [facility] Work Phone: Comment on above: Previous reported re sult: Kori isaacs Edited by: RGOOD on 09/27/21:1017Neutrophilic leukocytosis with left shift. PolycythemiaThrombocytosis.Clinical correlation necessary.Je Browne M.D. 09/27/21 AMENDED REPORT 09/27/21 1017 PATH REV previously reported as: Kori isaacs Total cell counton 2 Cells counted Molgen (Bld/Tiss) [#] 100 MANUAL DIFF [facility] Work Phone: Blood band neutrophil count as percentage of total leukocyteson 09-25-2021 Band form neutrophils/100 WBC (Bld) 1 % 0-5 [facility] Work Phone: [phone] Blood metamyelocytes/100 papa kocyteson 09-25-2021 Metamyelocytes/100 WBC (Bld) 3 % 0-1 [facility] Work Phone: [phone] Blood promyelocytes/100 leuk ocyteson 09-25-2021 Promyelocytes/100 WBC (Bld) 1 % 0-0 [facility] Work Phone: [phone] Basophil percentageon 2021 Basophil percentage 1 % 0-5 [facility] Work Phone: [phone] No Panel Informationon 09-22 D-Dimer Quantitative (PE/DVT) 0.56 FEU/ug/m 0.27-0.49 [facility] Work Phone: Comment on above: D-Dimer ELEVATED (>0 .49): Additional studies and clinicalassessments are indicated to conclude diagnosis of:Deep Vein Thrombosis (DVT) or Pulmonary Embolism (PE)CRITICAL VALUE VERIFIED. CALLED TO YVONNE PONCE ([facility])09/22/21 1110 Aren Castaneda.RESULTS READ BACK BY SAME. Blood manual differential co mment interpretation (narrative result)on 09-21-2021 Manual differential comment Shaan (Bld) [Interp] SCANNED [facility] Work Phone: Basophil percentageon 2021 Bilirubin [Mass/Vol] 0.30 mg/dL 0.20-1.00 [facility] Work Phone: Comment on above: For patients on eltr ombopag therapy, use of Dimension [place] TBIL is not recommended. Protein [Mass/Vol] 5.7 g/dL 6.4-8.2 [facility] Work Phone: Laboratory - Chemistry and C hemistry - challengeon 09-20-2021 ALP [Catalytic activity/Vol] 52 U/L 45-117 [facility] Work Phone: ALT [Catalytic activity/Vol] 28 U/L 13-56 [facility] Work Phone: Globulin (S) [Mass/Vol] 3.2 g/dL 2.2-4.2 [facility] Work Phone: [phone] Serum or plasma albumin jj urement (mass/volume)on 09-20-2021 Albumin [Mass/Vol] 2.5 g/dL 3.2-5.0 [facility] Work Phone: [phone] Serum or plasma albumin/glob ulin mass ratioon 09-20-2021 Albumin/Globulin [Mass ratio] 0.8 {ratio} 0.9-2.4 [facility] Work Phone: [phone] Thin prep Papanicolaou smear with manual screeningon 09-20-2021 Thin prep Papanicolaou smear with manual screening 24 U/L 15-37 [facility] Work Phone: [phone] Basophil percentageon 2021 Basophil percentage 2.5 mg/dL 2.5-4.9 [facility] Work Phone: [phone] Laboratory - Chemistry and C hemistry - challengeon 09-19-2021 Magnesium [Mass/Vol] 2.1 mg/dL 1.6-2.6 [facility] Work Phone: [phone] Panel Informationon 09-19 Thyroid Stimulating Hormone (TSH) 0.74 uIU/mL 0.358-3.74 [facility] Work Phone: [phone] Bronchoalveolar lavage cultu re with Gram stainon 09-18-2021 Respiratory Culture Negative [facility] Work Phone: [phone] Gram stain for investigation of transfusion reactionon 09-18-2021 Microscopic observation Gram stain Nom (Unsp spec) [facility] Work Phone: [phone] Panel Informationon 09-18 Streptococcus pneumoniae Antigen (M [facility] Work Phone: [phone] Serum or plasma C reactive p rotein measurement (mass/volume)on 09-18-2021 CRP [Mass/Vol] 172.00 mg/L 0.0-3.0 [facility] Work Phone: [phone] Comment on above: C-Reactive Protein ( CRP) provides useful information for thediagnosis, therapy and monitoring of inflammatory processesand associated diseases. For the evaluation of Relative Riskfor Cardiovascular Disease, a High Sensitivity CRP (HSCRP)should be ordered. Vancomycin troughon 09-19-19 Vancomycin trough [Mass/Vol] 14.1 ug/mL 5.0-15.0 [facility] Work Phone: Comment on above: VANCOMYCIN STANDARED DRUG THERAPY TROUGH LEVEL: 5.0 - 15.0 mg/L VANCOMYCIN HIGH INTENSITY THERAPY TROUGH LEVEL: 15.0 - 20.0 mg/L High Intensity therapy recommended for serious lifethreatening infections include:- Ekxfyeytem-Unkkywjqjdnu-Gfuourdzf (Ventilator/Healtcare Associated)-Sepsis PLEASE CONTACT PHARMACY SERVICES (#[id number]) FOR INTERPRETATIONOF RESULTS. Assessment of wrist artery p atency prior to arterial punctureon 09-17-2021 Arterial patency Wrist artery --pre arterial puncture Positive [facility] Work Phone: Base excesson 09-17-2021 Base excess Calc (BldV) [Moles/Vol] -2 mmol/L -2-2 [facility] Work Phone: Basophil percentageon 2021 Basophil percentage 21.8 mmol/L 22-26 [facility] Work Phone: Basophils/100 WBC (Bld) 88 % 95-99 [facility] Work Phone: CO2 (BldA) [Partial pressure ]on 09-17-2021 CO2 (Bld) [Partial pressure] 31.7 mm[Hg] 35-45 [facility] Work Phone: No Panel Informationon 09-17 Bedside Blood Gas PEEP 8 [facility] Work Phone: Blood Gas Oxygen Percent 100 [facility] Work Phone: Blood Gas Sample Site L Radial [facility] Work Phone: [phone] Blood Gas Specimen Type ART [facility] Work Phone: [phone] Blood Gas Total CO2 23 mmol[facility]L [facility] Oxygen Delivery Device BiPAP [facility] Work Phone: Oxygen (BldA) [Partial press ure]on 09-17-2021 Oxygen (Bld) [Partial pressure] 51 mmHG 75-100 [facility] Work Phone: pH measurementon 09-17-2021 pH (Unsp spec) 7.45 [pH] 7.35-7.45 [facility] Work Phone: Absolute lymphocyte counton 09-16-2021 Lymphocytes Auto (Unsp spec) [#/Vol] 0.70 10*3/uL 0.83-4.51 [facility] Work Phone: Basophil percentageon 2021 Lactate [Moles/Vol] 1.8 mmol/L 0.4-2.0 [facility] Work Phone: Basophil percentage 0 SEEN /hpf 0-5 [facility] Work Phone: [phone] Lactate [Moles/Vol] 2.2 mmol/L 0.4-2.0 [facility] Work Phone: Comment on above: Critical Result(s) C alled at: 14:10:01 09/16/2021 by: Miriam Grijalva. Results read back by same. Bilirubin [Mass/Vol] 0.20 mg/dL 0.20-1.00 [facility] Work Phone: Comment on above: For patients on eltr ombopag therapy, use of Dimension [place] TBIL is not recommended. Chloride [Moles/Vol] 109 mmol/L 98-107 [facility] Work Phone: Glucose [Mass/Vol] 141 mg/dL 74-106 [facility] Work Phone: Comment on above: Fasting Glucose resu lt greater than or equal to 126 mg/dL suggests DIABETES MELLITUS per A.D.A. criteria. Potassium [Moles/Vol] 3.7 mmol/L 3.5-5.1 [facility] Work Phone: Protein [Mass/Vol] 6.9 g/dL 6.4-8.2 [facility] Work Phone: Sodium [Moles/Vol] 141 mmol/L 136-145 [facility] Work Phone: Basophils/100 WBC (Bld) 0.5 % 0-1 [facility] Work Phone: Eosinophils/100 WBC (Bld) 0.1 % 0-5 [facility] Work Phone: Neutrophils (Bld) [#/Vol] 6.7 10*3/uL 2.0-7.7 [facility] Work Phone: Neutrophils/100 WBC (Bld) 75.2 % 47-70 [facility] Work Phone: WBC (Bld) [#/Vol] 8.8 10*3/uL 4.4-11.0 [facility] Work Phone: Bilirubin Test strip Ql (U)o n 09-16-2021 Bilirubin Ql (U) Negative Negative [facility] Work Phone: Blood erythrocytes count (nu mber/volume)on 09-16-2021 RBC (Bld) [#/Vol] 4.98 10*6/uL 4.2-5.4 [facility] Work Phone: Blood hemoglobin measurement (mass/volume)on 09-16-2021 Hemoglobin (Bld) [Mass/Vol] 14.2 g/dL 12.0-15.0 [facility] Work Phone: Blood lymphocytes/100 leukoc yteson 09-16-2021 Lymphocytes/100 WBC (Bld) 7.9 % 19-41 [facility] Work Phone: Blood monocytes/100 leukocyt eson 09-16-2021 Monocytes/100 WBC (Bld) 15.6 % 0-10 [facility] Work Phone: Blood platelet mean volumeon 09-16-2021 Platelet mean volume (Bld) [Entitic vol] 8.9 fL 6.2-12.0 [facility] Work Phone: Determination of erythrocyte mean corpuscular volume (MCV)on 09-16-2021 MCV (RBC) [Entitic vol] 90.8 fL 81-99 [facility] Work Phone: Hematocrit Auto (Bld) [Volum e fraction]on 09-16-2021 Hematocrit (Bld) [Volume fraction] 45.2 % 37-47 [facility] Work Phone: INR in Blood by Coagulation assayon 09-16-2021 INR Coag (Bld) [Relative time] 1.0 {INR} [facility] Work Phone: Ketones Test strip Ql (U)on 09-16-2021 Ketones Ql (U) 5 mg/dl Negative [facility] Work Phone: Laboratory - Chemistry and C hemistry - challengeon 09-16-2021 ALP [Catalytic activity/Vol] 88 U/L 45-117 [facility] Work Phone: ALT [Catalytic activity/Vol] 28 U/L 13-56 [facility] Work Phone: [phone] CO2 [Moles/Vol] 27.0 mmol/L 21.0-32.0 [facility] Work Phone: Globulin (S) [Mass/Vol] 3.3 g/dL 2.2-4.2 [facility] Work Phone: [phone] Urea nitrogen/Creatinine [Mass ratio] 38.8 mg/mg 10-20 [facility] Work Phone: Laboratory - Coagulationon 0 09-16-2021 aPTT Coag (Bld) [Time] 30.0 s 24.1-36.2 c[facility] Work Phone: PT Coag (PPP) [Time] 13.1 s 11.7-14.[address] [facility] Work Phone: Laboratory - Hematology and Cell countson 09-16-2021 Erythrocyte distribution width (RBC) [Entitic vol] 44.8 fL 35.1-43.9 [place] [facility] Work Phone: Erythrocyte distribution width (RBC) [Ratio] 13.4 % 11.6-14.6 [facility] Work Phone: Immature granulocytes/100 WBC (Bld) 0.700 % 0.0-0.9 [facility] Work Phone: Comment on above: IG% - Immature Granu locytes (promyelocytes, myelocytes and metamyelocytes) > 1% indicates that a LEFT SHIFT is Present. MCH (RBC) [Entitic mass] 28.5 pg 27.0-32.0 [facility] Work Phone: Nucleated RBC/100 WBC (Bld) [Ratio] 0 % 0-5 [facility] Work Phone: Laboratory - Microbiology an d Antimicrobial susceptibilityon 09-16-2021 Bacteria identified Cx Nom (Bld) No growth in 5 days. [facility] Work Phone: MCHC Auto (RBC) [Mass/Vol]on 09-16-2021 MCHC (RBC) [Mass/Vol] 31.4 g/dL 32-36 [facility] Work Phone: Mucus LM Ql (Urine sed)on Mucus Ql (Urine sed) 0 SEEN /hpf [facility] Work Phone: Nitrite Test strip Ql (U)on 09-16-2021 Nitrite Ql (U) Positive Negative [facility] Work Phone: No Panel Informationon 09-16 Estimated Creatinine Clearance Calc 66.30 ml/min [facility] Work Phone: [phone] Estimated GFR (MDRD) Amer 101 mL/min >60 [facility] Work Phone: [phone] Comment on above: GFR Calc Estimated GFR (MDRD) Non-Af Amer 83 mL/min >60 [facility] Work Phone: Comment on above: Non- GFR Calc Platelets bldon 09-16-2021 Platelets (Bld) [#/Vol] 373 10*3/uL 150-450 [facility] Work Phone: Protein Test strip Ql (U)on 09-16-2021 Protein Ql (U) 15 mg/dl Negative [facility] Work Phone: [phone] Serum or plasma albumin jj urement (mass/volume)on 09-16-2021 Albumin [Mass/Vol] 3.6 g/dL 3.2-5.0 [facility] Work Phone: [phone] Serum or plasma albumin/glob ulin mass ratioon 09-16-2021 Albumin/Globulin [Mass ratio] 1.1 {ratio} 0.9-2.4 [facility] Work Phone: [phone] Serum or plasma calcium jj urement (mass/volume)on 09-16-2021 Calcium [Mass/Vol] 8.8 mg/dL 8.5-10.1 [facility] Work Phone: [phone] Serum or plasma creatinine m easurement (mass/volume)on 09-16-2021 Creatinine [Mass/Vol] 0.75 mg/dL 0.55-1.02 [facility] Work Phone: Comment on above: The validity of the calculated GFR & GFRAA in patients over 70 years has not been determined. Clinical correlation is essential. Serum or plasma urea nitroge n measurement (mass/volume)on 09-16-2021 Urea nitrogen [Mass/Vol] 29 mg/dL 7-18 [facility] Work Phone: [phone] Squamous epithelial cells de tection in urine sediment by light microscopyon 09-16-2021 Epithelial cells.squamous LM Ql (Urine sed) 0 SEEN /hpf 5-10 [facility] Work Phone: Thin prep Papanicolaou smear with manual screeningon 09-16-2021 Thin prep Papanicolaou smear with manual screening 16 U/L 15-37 [facility] Work Phone: [phone] Thin prep Papanicolaou smear with manual screening 5 5-15 [facility] Work Phone: Urine blood detectionon 09-03 RBC Ql (U) 10 /ul Negative [facility] Work Phone: RBC Ql (U) 0 SEEN /hpf 0-5 [facility] Work Phone: Urine clarityon 09-16-2021 Clarity (U) Cloudy Clear [facility] Work Phone: Urine color determinationon 09-16-2021 Color (U) Yellow Yellow [facility] Work Phone: Urine glucose detectionon Glucose Ql (U) Normal mg/dl Normal [facility] Work Phone: Urine leukocyte esterase det ection by dipstickon 09-16-2021 Leukocyte esterase Test strip Ql (U) Negative Negative [facility] Work Phone: Urine pHon 09-16-2021 pH (U) 5.0 [pH] 5.0 - 8.0 [facility] Work Phone: Urine sediment bacteria coun t by microscopy (number/high power field)on 09-16-2021 Bacteria LM.HPF (Urine sed) [#/Area] 2 /[HPF] None Seen [facility] Work Phone: Urine specific gravity measu rementon 09-16-2021 Specific gravity (U) [Rel density] 1.025 1.002-1.030 [facility] Work Phone: Urobilinogen Auto test strip Ql (U)on 09-16-2021 Urobilinogen Ql (U) Normal mg/dl Normal [facility] Work Phone: Hepatic function 2000 panelo n 04-09-2021 Albumin [Mass/Vol] 4.4 g/dL 3.2 - 5.2 g/dL [facility] ALP [Catalytic activity/Vol] 100 U/L 40 - 150 U/L [facility] ALT [Catalytic activity/Vol] 22 U/L 0 - 40 U/L [facility] AST [Catalytic activity/Vol] 17 U/L 0 - 45 U/L [facility] Bilirubin [Mass/Vol] 0.2 mg/dL 0.0 - 1 .3 mg/dL [facility] Bilirubin.conjugated [Mass/Vol] mg/dL 0.0 - 0.4 mg/dL [facility] Interpretation and review of laboratory results Normal [facility] Protein [Mass/Vol] 6.5 g/dL 6.0 - 8.0 g/dL [facility] IGG, IGA, IGM IMMUNOGLOBULIN SOrdered By: Huong Jacobs on 04-09-2021 Interpretation and review of laboratory results Abnormal [facility] Laboratory - Chemistry and C hemistry - challengeon 04-09-2021 25-hydroxyvitamin D [Mass/Vol] 64 ng/mL 30 - 100 ng/mL [facility] Comment on above: Vitamin D status: Deficiency: <10 ng/mL Insufficiency: 10-30 ng/mL Sufficiency: 30-100 ng/mL Toxicity: >100 ng/mL Laboratory - Chemistry and C hemistry - challengeOrdered By: Huong Milan on 04-09-2021 IgA [Mass/Vol] 151 mg/dL 84 - 381 mg/dL [facility] IgG [Mass/Vol] 523 mg/dL Low 541 - 1694 mg/dL [facility] IgM [Mass/Vol] 60 mg/dL 43 - 238 mg/dL [facility] Laboratory - Hematology and Cell countson 04-09-2021 Basophils (Bld) [#/Vol] 0.07 10*3/uL [facility] Basophils/100 WBC (Bld) 0.6 % [facility] Eosinophils (Bld) [#/Vol] 0.04 10*3/uL [facility] Eosinophils/100 WBC (Bld) 0.4 % [facility] Erythrocyte distribution width (RBC) [Entitic vol] 13.8 % 11.6 - 14.8 % [facility] Hematocrit (Bld) [Volume fraction] 50.0 % High 36.0 - 46.0 % [facility] Hemoglobin (Bld) [Mass/Vol] 15.4 g/dL 12.0 - 16.0 g/dL [facility] Immature granulocytes (Bld) [#/Vol] 0.12 10*3/uL [facility] Immature granulocytes/100 WBC (Bld) 1.10 % [facility] Comment on above: The IG parameter is the percentage of metamyelocytes, myelocytes and promyelocytes. An immature granulocyte count (IG) of 1% or more suggests the possibility of infection, an IG count of 3% is very likely related to an infection. Lymphocytes (Bld) [#/Vol] 0.94 10*3/uL [facility] Lymphocytes/100 WBC (Bld) 8.4 % [facility] MCH (RBC) [Entitic mass] 28.1 pg 26. 0 - 34.0 pg [facility] MCHC (RBC) [Mass/Vol] 30.8 g/dL Low 31.0 - 37.0 g/dL [facility] MCV (RBC) [Entitic vol] 91.2 fL 80.0 - 100.0 fL [facility] Monocytes (Bld) [#/Vol] 0.93 10*3/uL High [facility] Monocytes/100 WBC (Bld) 8.3 % [facility] Neutrophils (Bld) [#/Vol] 9.12 10*3/uL [facility] Neutrophils/100 WBC (Bld) 81.2 % [facility] Nucleated RBC (Bld) [#/Vol] 0.00 10*3/uL [facility] Nucleated RBC/100 WBC (Bld) [Ratio] 0.0 % [facility] Platelet mean volume (Bld) [Entitic vol] 9.4 fL 9.4 - 12.4 fL [facility] Platelets (Bld) [#/Vol] 417 10*3/uL [facility] RBC (Bld) [#/Vol] 5.48 10*6/uL [facility] ealth WBC (Bld) [#/Vol] 11.22 10*3/uL [facility] No Panel Informationon 04-09 Interpretation and review of laboratory results Abnormal [facility] VITAMIN D, TOTAL, 25-OHon Interpretation and review of laboratory results Normal [facility] Assay performed usin patricia Diasorin CLIA methodology. [facility] MR BRAIN WITHOUT CONTRASTon 10-18-2019 No acute intracrania l abnormality. Underlying atrophy and black holes. Stable burden of T2/FLAIR signal abnormalities compatible with demyelination. [employer] Workstation ID: [id number] [facility] EXAMINATION: MR BRAMis N WITHOUT CONTRAST HISTORY: ORDERING SYSTEM PROVIDED [...] compatible with the patient's diagnosis of demyelination. [facility] Interface, Rad In [employer] Speech[employer] - 10/18/2019 [...] of T2/FLAIR signal abnormalities compatible with demyelination. [employer] Workstation ID: [id number] [facility] POC Creatinineon 09-28-2018 Creatinine mass conc 0.6 mg/dL 0.4 - 1 .1 mg/dL [facility] Interpretation and review of laboratory results Normal [facility] Comprehensive Metabolic Pane dwight 01-19-2018 Albumin mass conc 4.7 g/dL Invalid Interpretation Code 3.2 - 5.2 g/dL [facility] ALP enzyme act/vol 76 U/L Invalid Interpretation Code 40 - 150 U/L [facility] ALT enzyme act/vol 14 U/L Invalid Interpretation Code 0 - 40 U/L [facility] Anion gap 3 molar conc 17 mmol/L Invalid Interpretation Code 10 - 20 mmol/L [facility] AST enzyme act/vol 15 U/L Invalid Interpretation Code 0 - 45 U/L [facility] Bilirubin mass conc 0.3 mg/dL Invalid Interpretation Code 0 - 1.3 mg/dL [facility] Calcium mass conc 10.2 mg/dL Invalid Interpretation Code 8.4 - 10.2 mg/dL [facility] Chloride molar conc 107 mmol/L Invalid Interpretation Code 98 - 108 mmol/L [facility] Creatinine mass conc 0.47 mg/dL Invalid Interpretation Code 0.4 - 1.1 mg/dL [facility] GFR/1.73 sq M predicted among non-blacks MDRD vol rate/area (S/P/Bld) The eGFR should be used for monitoring renal function only and not for medication dosing. Invalid Interpretation Code [facility] GFR/1.73 sq M.predicted CKD-EPI vol rate/area (S/P/Bld) 108 Invalid Interpretation Code >=60 mL/min/1.73 m2 [facility] Glucose mass conc 96 mg/dL Invalid Interpretation Code 65 - 99 mg/dL [facility] HCO3 molar conc 26 mmol/L Invalid Interpretation Code 21 - 32 mmol/L [facility] Interpretation and review of laboratory results Abnormal Invalid Interpretation Code [facility] Potassium molar conc 4.2 mmol/L Invalid Interpretation Code 3.5 - 5.1 mmol/L [facility] Protein mass conc 6.9 g/dL Invalid Interpretation Code 6 - 8 g/dL [facility] Sodium molar conc 146 mmol/L High 135 - 145 mmol/L [facility] Urea nitrogen mass conc 33 mg/dL High 8 - 25 mg/dL [facility] Urea nitrogen/Creatinine mass ratio 70.2 mg/mg High [facility] Vitamin D, Total, 25-OHon 25-Hydroxyvitamin D2+25-Hydroxyvitamin D3 mass conc 72 ng/mL Invalid Interpretation Code 30 - 100 ng/mL [facility] Comment on above: Vitamin D status: De ficiency: <10 ng/mL Insufficiency: 10-30 ng/mL Sufficiency: 30-100 ng/mL Toxicity: >100 ng/mL Interpretation and review of laboratory results Normal Invalid Interpretation Code [facility] Assay performed usin patricia [employer] CLIA methodology. Invalid Interpretation Code [facility] CBC and Differentialon 08-25 Creatinine The following orders were created for panel order CBC and Differential. Procedure Abnormality Status --------- ------ CBC Auto Differential[[id number]] Abnormal Final result Please view results for these tests on the individual orders. Invalid Interpretation Code [facility] Comprehensive Metabolic Pane dwight 08-25-2017 Alanine aminotransferase (ALT) 18 U/L Invalid Interpretation Code 0 - 40 U/L [facility] Albumin 4.6 g/dL Invalid Interpretation Code 3.2 - 5.2 g/dL [facility] Alkaline phosphatase (ALP) 82 U/L Invalid Interpretation Code 40 - 150 U/L [facility] Anion gap 19 mmol/L Invalid Interpretation Code 10 - 20 mmol/L [facility] Aspartate aminotransferase (AST) 15 U/L Invalid Interpretation Code 0 - 45 U/L [facility] Bicarbonate (HCO3) 26 mmol/L Invalid Interpretation Code 21 - 32 mmol/L [facility] Bilirubin (total) mg/dL Invalid Interpretation Code 0 - 1.3 mg/dL [facility] BUN/Creatinine Ratio 48.1 mg/mg High 10.0 - 20.0 [facility] Calcium 10.3 mg/dL High 8.4 - 10.2 mg/dL [facility] Chloride 103 mmol/L Invalid Interpretation Code 98 - 108 mmol/L [facility] Creatinine 0.54 mg/dL Invalid Interpretation Code 0.4 - 1.1 mg/dL [facility] eGFR (non-black) The eGFR should be used for monitoring renal function only and not for medication dosing. Invalid Interpretation Code [facility] eGFR (non-black) 104 mL/min/{1.73_m2} Invalid Interpretation Code >=60 [facility] Glucose 86 mg/dL Invalid Interpretation Code 65 - 99 mg/dL [facility] Interpretation and review of laboratory results Abnormal Invalid Interpretation Code [facility] Potassium 4.3 mmol/L Invalid Interpretation Code 3.5 - 5.1 mmol/L [facility] Protein 6.9 g/dL Invalid Interpretation Code 6 - 8 g/dL [facility] Sodium 144 mmol/L Invalid Interpretation Code 135 - 145 mmol/L [facility] Urea nitrogen 26 mg/dL High 8 - 25 mg/dL [facility] Vitamin D, Total, 25-OHon Vit D, 25-Hydroxy 109 ng/mL High 30 - 100 ng/mL [facility] Vitamin D, Total, 25-OH Assay performed using [employer] CLIA methodology. Invalid Interpretation Code [facility] CBC and Differentialon 05-25 Creatinine The following orders were created for panel order CBC and Differential. Procedure Abnormality Status --------- ------ CBC Auto Differential[[id number]] Abnormal Final result Please view results for these tests on the individual orders. Invalid Interpretation Code [facility] Work Phone: Bronchoalveolar lavage cultu re with Gram stain Respiratory Culture Negative [facility] Work Phone: Culture, urine Bacteria identified Cx Nom (U) Mixed Gram Pos & Gram Neg Org [facility] Work Phone: Bacteria identified Cx Nom (U) Yeast [facility] Work Phone: Bacteria identified Cx Nom (U) Escherichia coli [facility] Work Phone: Gram stain for investigation of transfusion reaction Microscopic observation Gram stain Nom (Unsp spec) [facility] Work Phone: Laboratory - Microbiology an d Antimicrobial susceptibility Bacteria identified Cx Nom (Bld) No growth in 5 days. [facility] Work Phone: No Panel Information Streptococcus pneumoniae Antigen (M [facility] Work Phone: Vital Signs Date Time Vital Sign Value Performing Clinician Facility 07-05-2022 11:24-0500 Body height 162.[address] Joan Hughes Work Phone: [facility] 09-28-2021 12:05-0400 SaO2% (BldA) [Mass fraction] 98 % Dr. Joan Hughes Work Phone: [facility] Work Phone: 09-28-2021 09:00-0400 Body temperature 98 [degF] Dr. Joan Hughes Work Phone: [facility] Work Phone: 09-28-2021 09:00-0400 Diastolic blood pressure 79 mm[Hg] Dr. Joan Hughes Work Phone: [facility] Work Phone: 09-28-2021 09:00-0400 Heart rate 100 /min Dr. Joan Hughes Work Phone: [facility] Work Phone: 09-28-2021 09:00-0400 Respiratory rate 14 /min Dr. Joan Hughes Work Phone: [facility] Work Phone: 09-28-2021 09:00-0400 Systolic blood pressure 117 mm[Hg] Dr. Joan Hughes Work Phone: [facility] Work Phone: 09-28-2021 05:32-0400 Body weight 66.[address] Joan Hughes Work Phone: [facility] Work Phone: 09-25-2021 09:36-0400 Inhaled oxygen flow rate 2 L/min Dr. Joan Hughes Work Phone: [facility] Work Phone: 09-24-2021 11:58-0400 Body height 162.[address] Joan Hughes Work Phone: [facility] Work Phone: 09-23-2021 16:35-0400 Inhaled oxygen concentration 41 % Dr. Joan Hughes Work Phone: [facility] Work Phone: 09-16-2021 14:53-0400 Body mass index (BMI) [Ratio] 25.7 kg/m2 Dr. Joan Hughes Work Phone: [facility] Work Phone: 09-16-2021 14:11-0400 Body temperature 99.3 [degF] [facility] Work Phone: 09-16-2021 14:11-0400 Diastolic blood pressure 56 mm[Hg] [facility] Work Phone: 09-16-2021 14:11-0400 Heart rate 114 /min [facility] Work Phone: 09-16-2021 14:11-0400 Respiratory rate 16 /min [facility] Work Phone: 09-16-2021 14:11-0400 SaO2% (BldA) [Mass fraction] 95 % [facility] Work Phone: 09-16-2021 14:11-0400 Systolic blood pressure 132 mm[Hg] [facility] Work Phone: 09-16-2021 13:00-0400 Body height 162.56 cm [facility] Work Phone: 09-16-2021 13:00-0400 Body mass index (BMI) [Ratio] 26.8 kg/m2 [facility] Work Phone: 09-16-2021 13:00-0400 Body weight 70.8 kg [facility] Work Phone: 04-09-2021 13:25-0400 Body temperature 97.9 [degF] Chair 7 [facility] 04-09-2021 13:25-0400 Diastolic blood pressure 80 mm[Hg] Chair 7 [facility] 04-09-2021 13:25-0400 Heart rate 123 /min Chair 7 [facility] 04-09-2021 13:25-0400 SaO2% (BldA) [Mass fraction] 97 % Chair 7 [facility] 04-09-2021 13:25-0400 Systolic blood pressure 133 mm[Hg] Chair 7 [facility] 04-09-2021 11:06-0400 Respiratory rate 16 /min Chair 7 [facility] 04-09-2021 07:57-0400 Body height 162.6 cm Willard Epperson MD Work Phone: [facility] 04-09-2021 07:57-0400 Body mass index (BMI) [Ratio] 25.06 kg/m2 Willard Epperson MD Work Phone: [facility] 04-09-2021 07:57-0400 Body weight 66.22 kg Willard pEperson MD Work Phone: [facility] 04-09-2021 07:57-0400 Diastolic blood pressure 65 mm[Hg] Willard Epperson MD Work Phone: [facility] 04-09-2021 07:57-0400 Heart rate 111 /min Willard Epperson MD Work Phone: [facility] 04-09-2021 07:57-0400 Systolic blood pressure 123 mm[Hg] Willard Epperson MD Work Phone: [facility] 10-16-2020 12:50-0400 Body temperature 98.29 [degF] Chair 2 [facility] 10-16-2020 12:50-0400 Diastolic blood pressure 63 mm[Hg] Chair 2 [facility] 10-16-2020 12:50-0400 Heart rate 130 /min Chair 2 [facility] 10-16-2020 12:50-0400 SaO2% (BldA) [Mass fraction] 96 % Chair 2 [facility] 10-16-2020 12:50-0400 Systolic blood pressure 128 mm[Hg] Chair 2 [facility] 10-16-2020 11:34-0400 Respiratory rate 16 /min Chair 2 [facility] 04-17-2020 14:51-0500 BP Diastolic 70 mm[Hg] Chair 2 [facility] 04-17-2020 14:51-0500 BP Systolic 136 mm[Hg] Chair 2 [facility] 04-17-2020 14:51-0500 Pulse (Heart Rate) 126 /min Chair 2 [facility] 04-17-2020 14:51-0500 Pulse Oximetry 97 % Chair 2 [facility] 04-17-2020 14:51-0500 Respiratory Rate 16 /min Chair 2 [facility] 04-17-2020 14:48-0500 Body Temperature 98.4 [degF] Chair 2 [facility] 04-17-2020 10:41-0500 BMI (Body Mass Index) 22.31 kg/m2 Willard Epperson [facility] 04-17-2020 10:41-0500 Body weight 58.97 kg Willard Epperson [facility] 04-17-2020 10:41-0500 BP Diastolic 80 mm[Hg] Willard Epperson [facility] 04-17-2020 10:41-0500 BP Systolic 131 mm[Hg] Willard Epperson [facility] 04-17-2020 10:41-0500 Height 162.6 cm Willard Epperson [facility] 04-17-2020 10:41-0500 Pulse (Heart Rate) 86 /min Willard Epperson [facility] 10-18-2019 13:54-0400 Body Temperature 97.5 [degF] Chair 1 [facility] 10-18-2019 13:54-0400 BP Diastolic 79 mm[Hg] Chair 1 [facility] 10-18-2019 13:54-0400 BP Systolic 137 mm[Hg] Chair 1 [facility] 10-18-2019 13:54-0400 Pulse (Heart Rate) 112 /min Chair 1 [facility] 10-18-2019 13:54-0400 Pulse Oximetry 95 % Chair 1 [facility] 10-18-2019 13:54-0400 Respiratory Rate 20 /min Chair 1 [facility] 10-18-2019 07:03-0400 BMI (Body Mass Index) 22.31 kg/m2 Willard Epperson [facility] 10-18-2019 07:03-0400 Body weight 58.97 kg Willard Epperson [facility] 10-18-2019 07:03-0400 Height 162.6 cm Willard Epperson [facility] 04-12-2019 12:17-0500 BMI (Body Mass Index) 22.31 kg/m2 Willard Epperson [facility] 04-12-2019 12:17-0500 Body weight 58.97 kg Willard Epperson [facility] 04-12-2019 12:17-0500 BP Diastolic 78 mm[Hg] Willard Epperson [facility] 04-12-2019 12:17-0500 BP Systolic 124 mm[Hg] Willard Epperson [facility] 04-12-2019 12:17-0500 Height 162.6 cm Willard Epperson [facility] 04-12-2019 12:17-0500 Pulse (Heart Rate) 106 /min Willard Epperson [facility] 04-12-2019 12:12-0500 Body Temperature 97.9 [degF] Chair 5 [facility] 04-12-2019 12:12-0500 BP Diastolic 81 mm[Hg] Chair 5 [facility] 04-12-2019 12:12-0500 BP Systolic 134 mm[Hg] Chair 5 [facility] 04-12-2019 12:12-0500 Pulse (Heart Rate) 104 /min Chair 5 [facility] 04-12-2019 12:12-0500 Pulse Oximetry 97 % Chair 5 [facility] 04-12-2019 12:12-0500 Respiratory Rate 16 /min Chair 5 [facility] 10-12-2018 13:25-0400 Body Temperature 98.1 [degF] Chair 1 [facility] 10-12-2018 13:25-0400 BP Diastolic 74 mm[Hg] Chair 1 [facility] 10-12-2018 13:25-0400 BP Systolic 137 mm[Hg] Chair 1 [facility] 10-12-2018 13:25-0400 Pulse (Heart Rate) 130 /min Chair 1 [facility] 10-12-2018 13:25-0400 Pulse Oximetry 95 % Chair 1 [facility] 10-12-2018 10:14-0400 Respiratory Rate 14 /min Chair 1 [facility] 09-28-2018 15:44-0400 BMI (Body Mass Index) 22.31 kg/m2 Willard Epperson [facility] 09-28-2018 15:44-0400 Body weight 58.97 kg Willard Epperson [facility] 09-28-2018 15:44-0400 BP Diastolic 80 mm[Hg] Willard Epperson [facility] 09-28-2018 15:44-0400 BP Systolic 145 mm[Hg] Willard Epperson [facility] 09-28-2018 15:44-0400 Height 162.6 cm Willard Epperson [facility] 09-28-2018 15:44-0400 Pulse (Heart Rate) 89 /min Willard Epperson [facility] 09-28-2018 11:38-0400 BMI (Body Mass Index) 22.31 kg/m2 Willard Epperson [facility] 09-28-2018 11:38-0400 Height 162.6 cm Willard Epperson [facility] 09-28-2018 11:38-0400 Weight 58.97 kg Willard Epperson [facility] 01-19-2018 11:34-0400 BMI (Body Mass Index) 20.77 kg/m2 Willard Epperson [facility] 01-19-2018 11:34-0400 BP Diastolic 70 mm[Hg] Willard Epperson [facility] 01-19-2018 11:34-0400 BP Systolic 118 mm[Hg] Willard Epperson [facility] 01-19-2018 11:34-0400 Height 162.6 cm Willard Epperson [facility] 01-19-2018 11:34-0400 Pulse (Heart Rate) 76 /min Willard Epperson [facility] 01-19-2018 11:34-0400 Weight 54.88 kg Willard Epperson [facility] 10-11-2017 14:08-0400 Body Temperature 98.1 [degF] Chair 1 [facility] 10-11-2017 14:08-0400 BP Diastolic 79 mm[Hg] Chair 1 [facility] 10-11-2017 14:08-0400 BP Systolic 131 mm[Hg] Chair 1 [facility] 10-11-2017 14:08-0400 Pulse (Heart Rate) 106 /min Chair 1 [facility] 10-11-2017 14:08-0400 Pulse Oximetry 95 % Chair 1 [facility] 10-11-2017 14:08-0400 Respiratory Rate 14 /min Chair 1 [facility] 08-25-2017 11:31-0400 BMI (Body Mass Index) 22.31 kg/m2 Willard Epperson [facility] 08-25-2017 11:31-0400 BP Diastolic 83 mm[Hg] Willard Epperson [facility] 08-25-2017 11:31-0400 BP Systolic 137 mm[Hg] Willard Epperson [facility] 08-25-2017 11:31-0400 Height 162.6 cm Willard Epperson [facility] 08-25-2017 11:31-0400 Pulse (Heart Rate) 81 /min Willard Epperson [facility] 08-25-2017 11:31-0400 Weight 58.97 kg Willard Epperson [facility] 05-25-2017 09:23-0500 BMI (Body Mass Index) 22.49 kg/m2 Willard Epperson [facility] Work Phone: 05-25-2017 09:23-0500 BP Diastolic 74 mm[Hg] Willard Epperson [facility] Work Phone: 05-25-2017 09:23-0500 BP Systolic 104 mm[Hg] Willard Epperson [facility] Work Phone: 05-25-2017 09:23-0500 Height 162.6 cm Willard Epperson [facility] Work Phone: 05-25-2017 09:23-0500 Pulse (Heart Rate) 106 /min Willard Epperson [facility] Work Phone: 05-25-2017 09:23-0500 Weight 59.42 kg Willard Epperson [facility] Work Phone: 05-04-2017 13:10-0500 Body Temperature 98.29 [degF] Physician No [facility] Work Phone: 05-04-2017 13:10-0500 BP Diastolic 77 mm[Hg] Physician No [facility] Work Phone: 05-04-2017 13:10-0500 BP Systolic 121 mm[Hg] Physician No [facility] Work Phone: 05-04-2017 13:10-0500 Pulse (Heart Rate) 104 /min Physician No [facility] Work Phone: 05-04-2017 13:10-0500 Pulse Oximetry 96 % Physician No [facility] Work Phone: 05-04-2017 11:55-0500 Respiratory Rate 14 /min Physician No [facility] Work Phone: 04-13-2017 16:00-0500 Body Temperature 98.01 [degF] Physician No [facility] Work Phone: 04-13-2017 16:00-0500 BP Diastolic 77 mm[Hg] Physician No [facility] Work Phone: 04-13-2017 16:00-0500 BP Systolic 137 mm[Hg] Physician No [facility] Work Phone: 04-13-2017 16:00-0500 Pulse (Heart Rate) 115 /min Physician No [facility] Work Phone: 04-13-2017 16:00-0500 Pulse Oximetry 96 % Physician No [facility] Work Phone: 04-13-2017 16:00-0500 Respiratory Rate 16 /min Physician No [facility] Work Phone: 02-13-2017 09:07-0400 BMI (Body Mass Index) 21.8 kg/m2 [facility] Work Phone: 02-13-2017 09:07-0400 BP Diastolic 81 mm[Hg] Willard Epperson [facility] Work Phone: 02-13-2017 09:07-0400 BP Systolic 145 mm[Hg] Willard Epperson [facility] Work Phone: 02-13-2017 09:07-0400 Height 162.6 cm Willard Epperson [facility] Work Phone: 02-13-2017 09:07-0400 Pulse (Heart Rate) 73 /min Willard Epperson [facility] Work Phone: 02-13-2017 09:07-0400 Weight 57.61 kg Willard Epperson [facility] Work Phone: Encounters Encounter Date Encounter Type Care Provider Facility Start: 11-15-2024 ambulatory Breanne CULVER Fa cility:[facility] Start: 11-15-2024 Registered Referred Breanne Ruiz MD [facility] Start: 11-07-2024 ambulatory Breanne CULVER Fa cility:[facility] Start: 11-07-2024 Registered Referred Breanne Ruiz MD [facility] Start: 11-05-2024 ambulatory Joan Carlson y:[facility] Start: 11-05-2024 Registered Referred Britney BLANCO [facility] Start: 10-11-2024 End: 10-11-[address] Joan Hughes MD Work Phone: [facility] Work Phone: Start: 10-11-2024 End: 10-11-2024 Departed Referred Britney BLANCO [facility] Start: 10-11-2024 Registered Referred Britney BLANCO [facility] Start: 10-11-2024 End: 10-11-2024 ambulatory Britney CULVER Facility:[facility] Start: 10-08-2024 End: 10-08-[address] Joan Hughes MD Work Phone: [facility] Work Phone: Start: 10-08-2024 End: 10-08-2024 [facility] Start: 10-08-2024 End: 10-08-2024 ambulatory Efewlalitachetan Vangbeverly OLS Facility:[facility] Start: 09-04-2024 End: 09-04-2024 [facility] Start: 09-04-2024 [facility] Start: 09-03-2024 End: 09-04-2024 ambulatory Abbietracy Cierabeverly OLS Facility:[facility] Start: 09-03-2024 End: 09-03-[address] Breanne Ruiz MD -[facility] Work Phone: Start: 09-03-2024 End: 09-03-2024 [facility] Start: 09-03-2024 [facility] Start: 09-03-2024 End: 09-03-2024 ambulatory Abbietracy CULVER Facility:[facility] Start: 08-19-2024 End: 08-19-2024 ambulatory Joan Hughes Facility:[facility] Start: 08-19-2024 End: 08-19-2024 Patient encounter procedure Britney BLANCO -[facility] Work Phone: Start: 08-19-2024 End: 08-19-[address] Joan Hughes MD Work Phone: [facility] Work Phone: Start: 08-19-2024 End: 08-19-2024 [facility] Start: 08-19-2024 End: 08-19-2024 ambulatory Efewongbe Cierae OLS Facility:[facility] Start: 08-06-2024 End: 08-06-[address] Joan Hughes MD Work Phone: [facility] Work Phone: Start: 08-06-2024 End: 08-06-2024 [facility] Start: 08-06-2024 [facility] Start: 08-05-2024 End: 08-06-2024 ambulatory Efewtracy Ruiz OLS Facility:[facility] Start: 08-05-2024 End: 08-05-2024 Patient encounter [facility] Work Phone: Start: 07-09-2024 End: 07-09-[address] Breanne Ruiz MD -[facility] Work Phone: Start: 07-09-2024 End: 07-09-2024 ambulatory Efewtracy Ruiz Facility:[facility] Start: 07-09-2024 [facility] Start: 06-18-2024 End: 06-18-2024 [facility] Start: 06-18-2024 End: 06-18-2024 [facility] Start: 06-11-2024 ambulatory Efewongbe Oleghe OLS Fa cility:[facility] Start: 06-11-2024 [facility] Start: 06-07-2024 End: 06-07-2024 ambulatory Joan [facility] Facility:[facility] Start: 06-07-2024 End: 06-07-2024 [facility] Start: 05-07-2024 End: 05-07-2024 ambulatory Joan Hughes Facility:[facility] Start: 05-07-2024 End: 05-07-2024 ambulatory Efewongbe Oleghe OLS Facility:[facility] Start: 05-01-2024 End: 05-01-2024 ambulatory Joan Hughes Facility:[facility] Start: 04-15-2024 End: 04-15-2024 ambulatory Efewongbe Oleghe OLS Facility:[facility] Start: 04-10-2024 End: 04-10-2024 ambulatory Joan Hughes Facility:[facility] Start: 04-09-2024 End: 04-09-2024 ambulatory Efewongbe Oleghe OLS Facility:[facility] Start: 03-28-2024 End: 03-28-2024 ambulatory Britney Worthington ANIMAL ANATOMIST Facility:[facility] Start: 03-19-2024 End: 03-19-2024 [facility] Start: 03-07-2024 ambulatory Efewongbe Oleghe OLS Fa cility:[facility] Start: 03-05-2024 End: 03-05-2024 ambulatory Efewongbe Oleghe Facility:[facility] Start: 02-27-2024 ambulatory Efewongbe Oleghe OLS Fa cility:[facility] Start: 02-07-2024 End: 02-07-2024 ambulatory Britney Elin ANIMAL ANATOMIST Facility:[facility] Start: 02-06-2024 ambulatory Efewongbe Oleghe OLS Fa cility:[facility] Start: 01-22-2024 ambulatory Efewongbe Oleghe OLS Fa cility:[facility] Start: 01-09-2024 End: 01-10-2024 ambulatory Efewongbe Oleghe OLS Facility:[facility] Start: 01-09-2024 End: 01-09-2024 ambulatory Efewongbe Oleghe OLS Facility:[facility] Start: 12-25-2023 End: 12-25-2023 ambulatory Joan Hughes Facility:[facility] Start: 12-05-2023 End: 12-05-2023 ambulatory Efewongbe Oleghe OLS Facility:[facility] Start: 09-12-2023 End: 09-12-[address] Joan Hughes Work Phone: [facility] Work Phone: Start: 09-05-2023 End: 09-05-[address] Joan Hughes Work Phone: [facility] Work Phone: Start: 09-05-2023 End: 09-05-[address] Joan Hughes Work Phone: [facility] Start: 08-14-2023 End: 08-14-[address] Joan Hughes Work Phone: [facility] Work Phone: Start: 08-10-2023 End: 08-10-[address] Joan Hughes Work Phone: [facility] Start: 08-10-[address] Joan lacy Work Phone: [facility] Start: 08-08-2023 End: 08-08-[address] Joan Hughes Work Phone: [facility] Work Phone: Start: 08-08-2023 End: 08-08-[address] Joan Hughes Work Phone: [facility] Start: 07-17-2023 End: 07-17-[address] Joan Hughes Work Phone: [facility] Work Phone: Start: 07-17-2023 End: 07-17-[address] Joan Hughes Work Phone: [facility] Start: 07-11-2023 End: 07-11-[address] Joan Hughes Work Phone: [facility] Work Phone: Start: 07-03-2023 End: 07-03-[address] Joan Hughes Work Phone: [facility] Work Phone: Start: 07-03-2023 End: 07-03-[address] Joan Hughes Work Phone: [facility] Start: 07-03-[address] Joan lacy Work Phone: [facility] Start: 06-26-2023 End: 06-26-[address] Joan Hughes Work Phone: [facility] Work Phone: Start: 06-08-2023 End: 06-08-[address] Joan Hughes Work Phone: [facility] Work Phone: Start: 06-06-2023 End: 06-06-[address] Joan Hughes Work Phone: [facility] Work Phone: Start: 06-06-2023 End: 06-06-[address] Joan Hughes Work Phone: [facility] Start: 05-09-2023 End: 05-09-[address] Joan Hughes Work Phone: [facility] Work Phone: Start: 05-09-2023 End: 05-09-[address] Joan Hughes Work Phone: [facility] Work Phone: Start: 05-09-2023 End: 05-09-[address] Joan Hughes Work Phone: [facility] Start: 05-01-2023 End: 05-01-[address] Joan Hughes Work Phone: [facility] Work Phone: Start: 03-14-2023 End: 03-14-[address] Joan Hughes Work Phone: [facility] Work Phone: Start: 03-10-2023 End: 03-10-[address] Joan Hughes Work Phone: [facility] Work Phone: Start: 02-27-2023 End: 02-27-[address] Joan Hughes Work Phone: [facility] Work Phone: Start: 02-22-2023 End: 02-22-[address] Joan Hughes Work Phone: [facility] Start: 02-22-[address] Joan alcy Work Phone: [facility] Start: 02-21-2023 End: 02-21-[address] Joan Hughes Work Phone: [facility] Start: 02-21-[address] Joan lacy Work Phone: [facility] Start: 02-13-2023 End: 02-13-[address] Joan Hughes Work Phone: [facility] Work Phone: Start: 02-13-2023 End: 02-13-[address] Joan Hughes Work Phone: [facility] Start: 02-13-[address] Joan lacy Work Phone: [facility] Start: 02-07-2023 End: 02-07-[address] Joan Hughes Work Phone: [facility] Work Phone: Start: 02-07-2023 End: 02-07-[address] Joan Hughes Work Phone: [facility] Start: 01-24-2023 End: 01-24-[address] Joan Hughes Work Phone: [facility] Start: 01-24-[address] Joan lacy Work Phone: [facility] Start: 01-10-2023 End: 01-10-[address] Joan Hughes Work Phone: [facility] Work Phone: Start: 01-10-2023 End: 01-10-[address] Joan Hughes Work Phone: [facility] Start: 01-10-[address] Joan lacy Work Phone: [facility] Start: 01-03-2023 End: 01-03-[address] Joan Hughes Work Phone: [facility] Work Phone: Start: 12-27-2022 End: 12-27-[address] Joan Hughes Work Phone: [facility] Work Phone: Start: 12-27-2022 End: 12-27-[address] Joan Hughes Work Phone: [facility] Start: 12-27-[address] Joan lacy Work Phone: [facility] Start: 12-23-2022 End: 12-23-[address] Joan Hughes Work Phone: [facility] Work Phone: Start: 12-13-2022 End: 12-13-[address] Joan Hughes Work Phone: [facility] Work Phone: Start: 12-13-2022 End: 12-13-[address] Joan Hughes Work Phone: [facility] Start: 12-13-[address] Joan lacy Work Phone: [facility] Start: 11-29-2022 End: 11-29-[address] Joan Hughes Work Phone: [facility] Work Phone: Start: 11-29-2022 End: 11-29-[address] Joan Hughes Work Phone: [facility] Start: 11-29-[address] Joan lacy Work Phone: [facility] Start: 11-15-2022 End: 11-15-[address] Joan Hughes Work Phone: [facility] Start: 11-15-[address] Joan lacy Work Phone: [facility] Start: 11-08-2022 End: 11-08-[address] Joan Hughes Work Phone: [facility] Work Phone: Start: 11-01-2022 End: 11-01-[address] Joan Hughes Work Phone: [facility] Work Phone: Start: 11-01-2022 End: 11-01-[address] Joan Hughes Work Phone: [facility] Start: 10-27-2022 End: 10-27-[address] Joan Hughes Work Phone: [facility] Work Phone: Start: 10-18-2022 End: 10-18-[address] Joan Hughes Work Phone: [facility] Start: 10-18-[address] Joan lacy Work Phone: [facility] Start: 10-04-2022 End: 10-04-[address] Joan Hughes Work Phone: [facility] Work Phone: Start: 10-04-2022 End: 10-04-[address] Joan Hughes Work Phone: [facility] Start: 09-20-2022 End: 09-20-[address] Joan Hughes Work Phone: [facility] Work Phone: Start: 09-20-2022 End: 09-20-[address] Joan Hughes Work Phone: [facility] Start: 09-20-[address] Joan lacy Work Phone: [facility] Start: 09-06-2022 End: 09-06-[address] Joan Hughes Work Phone: [facility] Start: 09-06-2022 End: 09-06-[address] Joan Hughes Work Phone: [facility] Work Phone: Start: 09-06-2022 End: 09-06-[address] Joan Hughes Work Phone: [facility] Start: 09-06-[address] Joan lacy Work Phone: [facility] Start: 08-23-2022 End: 08-23-[address] Joan Hughes Work Phone: [facility] Start: 08-23-2022 End: 08-23-[address] Joan Hughes Work Phone: [facility] Work Phone: Start: 08-23-2022 End: 08-23-[address] Joan Hughes Work Phone: [facility] Start: 08-23-[address] Joan lacy Work Phone: [facility] Start: 08-09-2022 End: 08-09-[address] Joan Hughes Work Phone: [facility] Work Phone: Start: 08-09-2022 End: 08-09-[address] Joan Hughes Work Phone: [facility] Start: 08-09-[address] Joan lacy Work Phone: [facility] Start: 07-26-2022 End: 07-26-[address] Joan Hughes Work Phone: [facility] Work Phone: Start: 07-26-2022 End: 07-26-[address] Joan Hughes Work Phone: [facility] Start: 07-26-[address] Joan lacy Work Phone: [facility] Start: 07-13-2022 End: 07-13-[address] Joan Hughes Work Phone: [facility] Work Phone: Start: 07-13-2022 End: 07-13-[address] Joan Hughes Work Phone: [facility] Start: 07-13-[address] Joan lacy Work Phone: [facility] Start: 07-12-2022 End: 07-12-[address] Joan Hughes Work Phone: [facility] Start: 07-12-2022 End: 07-12-[address] Joan Hughes Work Phone: [facility] Work Phone: Start: 07-12-2022 End: 07-12-[address] Joan Hughes Work Phone: [facility] Start: 07-04-2022 End: 07-04-[address] Joan Hughes Work Phone: [facility] Start: 06-28-2022 End: 06-28-[address] Joan Hughes Work Phone: [facility] Work Phone: Start: 06-28-2022 End: 06-28-[address] Joan Hughes Work Phone: [facility] Start: 06-27-2022 End: 06-27-[address] Joan Hughes Work Phone: [facility] Start: 06-23-2022 End: 06-23-2022 Telemedicine consultation with patient Willard Epperson MD Work Phone: [facility] Comment on above: Multiple sclerosis, primary progressive (HCC) (Primary Dx) Start: 06-14-2022 End: 06-14-[address] Joan Hughes Work Phone: [facility] Start: 06-14-[address] Joan lacy Work Phone: [facility] Start: 06-03-2022 End: 06-03-[address] Joan Hughes Work Phone: [facility] Start: 06-03-2022 End: 06-03-[address] Joan Hughes Work Phone: [facility] Work Phone: Start: 06-03-2022 End: 06-03-[address] Joan Hughes Work Phone: [facility] Start: 06-03-[address] Joan lacy Work Phone: [facility] Start: 06-01-2022 End: 06-01-[address] Joan Hughes Work Phone: [facility] Work Phone: Start: 06-01-2022 End: 06-01-[address] Joan Hughes Work Phone: [facility] Start: 06-01-[address] Joan lacy Work Phone: [facility] Start: 05-31-[address] Joan lacy Work Phone: [facility] Start: 05-28-2022 End: 05-28-[address] Joan Hughes Work Phone: [facility] Start: 05-28-[address] Joan lacy Work Phone: [facility] Start: 05-27-2022 End: 05-27-[address] Joan Hughes Work Phone: [facility] Work Phone: Start: 05-27-2022 End: 05-27-[address] Joan Hughes Work Phone: [facility] Start: 05-27-[address] Joan lacy Work Phone: [facility] Start: 05-17-2022 End: 05-17-[address] Joan Hughes Work Phone: [facility] Work Phone: Start: 05-17-2022 End: 05-17-[address] Joan Hughes Work Phone: [facility] Start: 05-17-[address] Joan lacy Work Phone: [facility] Start: 05-03-2022 End: 05-03-[address] Joan Hughes Work Phone: [facility] Work Phone: Start: 05-03-2022 End: 05-03-[address] Joan Hughes Work Phone: [facility] Start: 04-19-2022 End: 04-19-[address] Joan Hughes Work Phone: [facility] Start: 04-19-[address] Joan lacy Work Phone: [facility] Start: 04-09-2022 End: 04-09-[address] Joan Hughes Work Phone: [facility] Start: 04-05-2022 End: 04-05-[address] Joan Hughes Work Phone: [facility] Start: 04-05-2022 End: 04-05-[address] Joan Hughes Work Phone: [facility] Work Phone: Start: 04-05-2022 End: 04-05-[address] Joan Hughes Work Phone: [facility] Start: 04-05-[address] Joan lacy Work Phone: [facility] Start: 03-22-2022 End: 03-22-[address] Joan Hughes Work Phone: [facility] Work Phone: Start: 03-22-2022 End: 03-22-[address] Joan Hughes Work Phone: [facility] Start: 03-22-[address] Joan lacy Work Phone: [facility] Start: 03-08-2022 End: 03-08-[address] Joan Hughes Work Phone: [facility] Work Phone: Start: 03-08-2022 End: 03-08-[address] Joan Hughes Work Phone: [facility] Start: 02-22-2022 End: 02-22-[address] Joan Hughes Work Phone: [facility] Work Phone: Start: 02-22-2022 End: 02-22-[address] Joan Hughes Work Phone: [facility] Start: 02-22-[address] Joan lacy Work Phone: [facility] Start: 02-17-2022 End: 02-17-[address] Joan Hughes Work Phone: [facility] Start: 02-08-2022 End: 02-08-[address] Joan Hughes Work Phone: [facility] Work Phone: Start: 02-08-2022 End: 02-08-[address] Joan Hughes Work Phone: [facility] Start: 02-08-[address] Joan lacy Work Phone: [facility] Start: 01-25-2022 End: 01-25-[address] Joan Hughes Work Phone: [facility] Work Phone: Start: 01-25-2022 End: 01-25-[address] Joan Hughes Work Phone: [facility] Start: 01-25-[address] Joan lacy Work Phone: [facility] Start: 01-14-2022 ambulatory [facility] Start: 01-11-2022 End: 01-11-[address] Joan Hughes Work Phone: [facility] Work Phone: Start: 01-11-2022 End: 01-11-[address] Joan Hughes Work Phone: [facility] Start: 12-28-2021 End: 12-28-[address] Joan Hughes Work Phone: [facility] Start: 12-14-2021 End: 12-14-[address] Joan Hughes Work Phone: [facility] Start: 12-01-2021 ambulatory Joan villanueva MD Work Phone: Internal Medicine [facility] Start: 11-30-2021 End: 11-30-[address] Joan Hughes Work Phone: [facility] Start: 11-16-2021 End: 11-16-[address] Joan Hughes Work Phone: [facility] Start: 11-16-[address] Joan lacy Work Phone: [facility] Start: 11-13-2021 End: 11-13-[address] Joan Hughes Work Phone: [facility] Start: 11-12-2021 End: 11-12-[address] Joan Hughes Work Phone: [facility] Start: 11-02-2021 End: 11-02-[address] Joan Hughes Work Phone: [facility] Start: 11-02-[address] Joan lacy Work Phone: [phone] [place] [address] Start: 10-25-2021 End: 10-25-[address] Joan Hughes Work Phone: [phone] [place] [address] Start: 10-25-[address] Joan lacy Work Phone: [phone] [place] [address] Start: 10-18-2021 End: 10-18-[address] Joan Hughes Work Phone: [phone] [place] [address] Start: 10-18-[address] Joan lacy Work Phone: [facility] Start: 10-11-2021 End: 10-11-[address] Joan Hughes Work Phone: [facility] Start: 10-08-2021 End: 10-08-[address] Joan Hughes Work Phone: [facility] Start: 09-28-2021 Non-patient / Non-visit Dr. Michael Hughes Work Phone: [facility] Start: 09-27-2021 Non-patient / Non-visit Dr. Michael Hughes Work Phone: [facility] Start: 09-26-2021 Non-patient / Non-visit Dr. Michael Hughes Work Phone: [facility] Start: 09-25-2021 Non-patient / Non-visit Dr. Michael perry [employer] Work Phone: [facility] Start: 09-25-2021 Non-patient / Non-visit Dr. Michael perry [employer] Work Phone: [facility] Start: 09-24-2021 Non-patient / Non-visit Dr. Michael perry [employer] Work Phone: [facility] Start: 09-24-2021 Non-patient / Non-visit Dr. Michael perry [employer] [facility] Start: 09-23-2021 Non-patient / Non-visit Dr. Michael perry [employer] Work Phone: [facility] Start: 09-23-2021 Non-patient / Non-visit Dr. Michael perry [employer] Work Phone: [facility] Start: 09-22-2021 Non-patient / Non-visit Dr. Michael perry [employer]rafael Work Phone: [facility] Start: 09-22-2021 Non-patient / Non-visit Dr. Michael perry HALFP[employer]rafael Work Phone: [facility] Start: 09-21-2021 Coordination of care plan Mer rPado RN [facility] Start: 09-21-2021 Non-patient / Non-visit Dr. Michael perry [employer] Work Phone: [facility] Start: 09-21-2021 Non-patient / Non-visit Dr. Michael perry [employer] [facility] Start: 09-20-2021 Non-patient / Non-visit Dr. Michael perry [employer] Work Phone: [facility] Start: 09-20-2021 Non-patient / Non-visit Dr. Michael Hughes Work Phone: [facility] Start: 09-19-2021 Non-patient / Non-visit Dr. Michael Hughes Work Phone: [facility] Start: 09-19-2021 Non-patient / Non-visit Dr. Michael Hughes Work Phone: [facility] Start: 09-18-2021 Non-patient / Non-visit Dr. Michael Hughes Work Phone: [facility] Start: 09-17-2021 Non-patient / Non-visit Dr. Michael Hughes Work Phone: [facility] Start: 09-16-2021 Non-patient / Non-visit Dr. Michael Hughes Work Phone: [facility] Start: 09-16-2021 End: 09-28-2021 Evaluation and management of inpatient [facility] Start: 07-22-2021 ambulatory [facility] Start: 04-09-2021 End: 04-13-2021 ambulatory [facility] Start: 04-09-2021 End: 04-09-2021 Office outpatient visit 40 minutes Willard Epperson MD Work Phone: [facility] Neuroscience Comment on above: Multiple sclerosis, primary progressive (HCC) (Primary Dx); Vitamin D deficiency; Spasticity; Ataxia; Cognitive impairment Start: 04-09-2021 End: 04-09-2021 ambulatory Willard Epperson MD Work Phone: [facility] Comment on above: Multiple sclerosis, primary progressive (HCC) (Primary Dx); Multiple sclerosis (HCC) Start: 04-08-2021 Coordination of care plan Zahra Pratt RN [facility] Start: 01-08-2021 End: 01-08-2021 Chayito Cardoso MA [facility] Comment on above: Vitamin D deficiency Start: 10-29-2020 End: 10-29-2020 Orders Only Willard Epperson MD Work Phone: [facility] Comment on above: Multiple sclerosis, primary progressive (HCC) (Primary Dx) Start: 10-16-2020 End: 10-20-2020 ambulatory WILLARD EPPERSON [facility] Start: 10-16-2020 End: 10-16-2020 Office outpatient visit 25 minutes Willard Epperson MD Work Phone: [facility] Comment on above: Multiple sclerosis, primary progressive (HCC) (Primary Dx); Vitamin D deficiency; Paresis of lower extremity (HCC); History of gait disorder Start: 10-16-2020 End: 10-16-2020 ambulatory WILLARD EPPERSON [facility] Start: 10-16-2020 End: 10-16-2020 ambulatory Willard Epperson MD Work Phone: [facility] Comment on above: Multiple sclerosis, primary progressive (HCC) (Primary Dx) Start: 10-13-2020 End: 10-13-2020 Orders Only Willard Epperson MD Work Phone: [facility] Start: 10-12-2020 End: 10-12-2020 Coordination of care plan Fifi Guillermo RN [facility] Start: 10-07-2020 End: 10-07-2020 Coordination of care plan Fifi Guillermo RN [facility] Start: 08-06-2020 End: 08-06-2020 Orders Only Hermila Bowen Work Phone: [facility] Start: 04-21-2020 End: 04-21-2020 Documentation procedure Jeanne Hilario [facility] Start: 04-17-2020 End: 04-17-2020 ambulatory WILLARD EPPERSON [facility] Start: 04-17-2020 End: 04-17-2020 Office outpatient visit 25 minutes Willard Epperson Work Phone: [facility] Comment on above: Multiple sclerosis ( HCC) (Primary Dx); Fatigue, unspecified type; Orthostasis; Falls frequently Start: 04-17-2020 End: 04-17-2020 Patient encounter procedure Willard Epperson Work Phone: [facility] Comment on above: Multiple sclerosis, primary progressive (HCC) (Primary Dx) Start: 04-13-2020 End: 04-13-2020 Coordination of care plan [facility] Start: 10-29-2019 End: 10-29-[address] [facility] Start: 10-24-2019 End: 10-24-2019 Documentation procedure Jeanne Hilario [facility], Neuroscience Start: 10-18-2019 End: 10-18-2019 Phys/qhp telephone evaluation 11-20 min Willard Epperson Work Phone: [facility] Comment on above: Multiple sclerosis ( HCC) Start: 10-18-2019 End: 10-18-2019 Patient encounter procedure Willard Epperson Work Phone: [facility] Comment on above: Multiple sclerosis, primary progressive (HCC) (Primary Dx) Start: 10-18-2019 End: 10-18-2019 Subsequent hospital visit by physician Willard Epperson Work Phone: [facility] Comment on above: Multiple sclerosis ( HCC) Start: 10-09-2019 End: 10-09-2019 Coordination of care plan [facility] Start: 04-18-2019 End: 04-18-2019 Documentation procedure Jeanne Hilario [facility] Start: 04-12-2019 End: 04-12-2019 Office outpatient visit 25 minutes Willard Epperson Work Phone: [facility] Comment on above: Multiple sclerosis ( HCC) (Primary Dx) Start: 04-12-2019 End: 04-12-2019 Patient encounter procedure Willard Epperson Work Phone: [facility] Comment on above: Multiple sclerosis, primary progressive (HCC) (Primary Dx); Multiple sclerosis (HCC) Start: 04-11-2019 End: 04-11-2019 Coordination of care plan Melva Zuleta [facility] Start: 10-12-2018 End: 10-12-2018 Patient encounter procedure Willard Epperson Work Phone: [facility] Comment on above: Multiple sclerosis, primary progressive (HCC) (Primary Dx) Start: 09-28-2018 End: 09-28-2018 Office outpatient visit 25 minutes Willard Epperson Work Phone: [facility] Comment on above: Multiple sclerosis ( HCC) (Primary Dx); Therapeutic drug monitoring Start: 09-28-2018 End: 09-28-2018 Patient encounter procedure Willard Epperson Work Phone: [facility] Comment on above: Multiple sclerosis ( HCC) Start: 01-23-2018 Patient encounter Jeanne Hilario [facility] Start: 01-19-2018 End: 01-19-2018 Office outpatient visit 40 minutes Aysha Epperson Work Phone: [facility] Start: 10-11-2017 End: 10-11-2017 Ambulatory Murtaza Fish Work Phone: [facility] Start: 08-25-2017 Office/outpatient vi sit, est, level 4 Willard Epperson Work Phone: [facility] Start: 08-11-2017 Ambulatory Jeanne Hilario [facility] Start: 05-25-2017 Ambulatory Jeanne Hilario [facility] Start: 05-25-2017 Office/outpatient vi sit, est, level 4 Willard Epperson Work Phone: [facility] Start: 05-04-2017 Ambulatory Murtaza muñoz Work Phone: [facility] Start: 04-13-2017 Ambulatory Murtaza muñoz Work Phone: [facility] Start: 02-13-2017 End: 02-13-2017 Documentation procedure Jeanne Hilario [facility] Start: 02-13-2017 Office/outpatient vi sit, est, level 4 Willard Epperson Work Phone: [facility] Start: 01-25-2017 Ambulatory Jeanne Hilario [facility] Procedures Date Procedure Procedure Detail Performing Clinician Start: 11-15-2024 Urnls dip stick/tabl et reagent auto microscopy Dr. Joan Hughes MD Work Phone: Start: 10-11-2024 Gram stain microscopy Norm Hughes MD Work Phone: Start: 10-11-2024 End: 10-11-[address] Joan villanueva MD Work Phone: Start: 08-19-2024 Gram stain microscopy Norm Hughes MD Work Phone: Start: 08-19-2024 End: 08-19-[address] oJan villanueva MD Work Phone: Start: 08-05-2024 Urnls dip stick/tabl et reagent auto microscopy Dr. Joan Hughes MD Work Phone: Start: [...] Start: 09-17-2021 Plain chest X-ray Dr. Bolivar Hugehs Work Phone: Start: 09-17-2021 Plain chest X-ray [...] MD Work Phone: Start: 03-10-2020 Mammography Hermila P rovanzana Start: 10-18-2019 MRI of brain and brain stem Willard Epperson Work Phone: Start: 01-21-2019 Mammography Joan billingsley MD Work Phone: Start: 01-14-2019 Adult depression scr eening assessment Joan Hughes MD Work Phone: Start: 10-01-2018 Colonoscopy Pegradha ramirez Start: 09-28-2018 Creatinine [Mass/vol ume] in [...] 10-01-2028 Screening for malignant neoplasm of colon [facility] Start: 11-15-2024 Bacteria identified in Urine by Culture Urine Culture [facility] Start: 11-15-2024 [facility] Start: 10-02-2023 Colonoscopy COLONOSCOPY [facility] Start: 10-02-2023 COLORECTAL CANCER SCREENING COLORECTAL CANCER SCREENING [facility] Start: 02-08-2022 Tetanus vaccination [facility] Start: 02-08-2022 Urine microalbumin profile DTAP,TDAP,TD (2 - Td or Tdap) [facility] Start: 02-03-2022 Influenza vaccination [facility] Start: 09-28-2021 Patient discharge [facility] Work Phone: Start: 09-28-2021 End: 09-28-2021 ambulatory [facility] Start: 09-28-2021 End: 09-28-2021 Patient encounter procedure [facility] Start: 09-27-2021 End: 09-27-2021 Patient encounter procedure [facility] Start: 09-21-2021 Following clinical pathway protocol [facility] Work Phone: Start: 09-21-2021 [facility] Work Phone: Start: 09-20-2021 Care planning and problem solving actions [facility] Work Phone: Start: 09-18-2021 Catheterization of vein [facility] Work Phone: Start: 09-18-2021 Consultation [facility] Work Phone: Start: 09-18-2021 Incentive spirometry [facility] Work Phone: Start: 09-18-2021 Insertion of catheter into peripheral vein [facility] Work Phone: Start: 09-18-2021 Measuring intake and output [facility] Work Phone: Start: 09-18-2021 Oxygen therapy [facility] Work Phone: Start: 09-18-2021 Physiotherapy of chest [facility] Work Phone: Start: 09-18-2021 Providing care according to standard [facility] Work Phone: Start: 09-18-2021 Vital signs measurements [facility] Work Phone: Start: 09-18-2021 [facility] Work Phone: Start: 09-18-2021 Care planning and problem solving actions [facility] Work Phone: Start: 09-18-2021 Continuous positive airway pressure ventilation treatment [facility] Work Phone: Start: 09-17-2021 Speech therapy assessment [facility] Work Phone: Start: 09-17-2021 [facility] Work Phone: Start: 09-16-2021 Ambulation without limitation [facility] Work Phone: Start: 09-16-2021 Assessment of risk of venous thromboembolism [facility] Work Phone: Start: 09-16-2021 Insertion of catheter into peripheral vein [facility] Work Phone: Start: 09-16-2021 Providing care according to standard [facility] Work Phone: Start: 09-16-2021 Referral to occupational therapist [facility] Work Phone: Start: 09-16-2021 Referral to service [facility] Work Phone: Start: 09-16-2021 [facility] Work Phone: Start: 09-16-2021 Following clinical pathway protocol [facility] Work Phone: Start: 09-16-2021 Admission procedure [facility] Work Phone: Start: 09-16-2021 Bacteria identified in Blood by Culture Blood Culture [facility] Work Phone: Start: 09-16-2021 Bacteria identified in Urine by Culture Urine Culture [facility] Work Phone: Start: 04-23-2021 COVID-19 Vaccine (3 - Booster for Pfizer series) COVID-19 Vaccine (3 - Booster for Pfizer series) [facility] Start: 04-16-2021 End: 04-16-2021 ambulatory 04/16/2021 Infusion/Injection Infusion Therapy [facility] Start: 04-09-2021 End: 04-09-2021 ambulatory 04/09/2021 Infusion/Injection Infusion Therapy [facility] Start: 04-09-2021 End: 04-09-2021 Patient encounter procedure 04/09/2021 Office Visit Neurology Willard Epperson MD [address] [facility] [address] [place] [address] [phone] [facility] Start: 03-23-2021 COVID-19 Vaccine (3 - Booster for Pfizer series) COVID-19 Vaccine (3 - Booster for Pfizer series) [facility] Start: 03-10-2021 Screening for malignant neoplasm of breast Mammogram [facility] Start: 03-10-2021 Screening mammography Mammogram [facility] Start: 03-05-2021 End: 10-19-2021 MR Brain With And Without Contrast MR Brain With And Without Contrast Imaging Routine Multiple sclerosis, primary progressive (HCC) Expected: 03/05/2021, Expires: 10/19/2021 [facility] Comment on above: Expected: 03/05/2021, Expires: Start: 03-05-2021 End: 10-19-2021 MRI of cervical spine MR Cervical Spine With And Without Contrast Imaging Routine Multiple sclerosis, primary progressive (HCC) Expected: 03/05/2021, Expires: 10/19/2021 [facility] Comment on above: Expected: 03/05/2021, Expires: 2 Start: 03-05-2021 End: 10-19-2021 MRI of thoracic spine MR Thoracic Spine With And Without Contrast Imaging Routine Multiple sclerosis, primary progressive (HCC) Expected: 03/05/2021, Expires: 10/19/2021 [facility] Comment on above: Expected: 03/05/2021, Expires: 2 Start: 02-03-2021 Influenza vaccination [facility] Start: 12-16-2020 COVID-19 Vaccine (3 - Booster for Pfizer series) COVID-19 Vaccine (3 - Booster for Pfizer series) [facility] Start: 10-19-2020 COVID-19 Vaccine (2 - Pfizer 2-dose series) COVID-19 Vaccine (2 - Pfizer 2-dose series) [facility] Start: 10-16-2020 End: 10-16-2020 Infusion/Injection [facility] Start: 04-17-2020 End: 04-17-2020 Office Visit 04/17/2020 Office Visit Neurology Willard Epperson MD [address] [facility] [address] [address] [phone] [facility] Start: 04-17-2020 End: 04-17-2020 Infusion/Injection [facility] Start: 02-04-2020 Influenza vaccination given [facility] Start: 01-22-2020 Mammography MAMMOGRAM [facility] Start: 01-15-2020 Adult depression screening assessment DEPRESSION SCREENING [facility] Start: 10-18-2019 End: 10-18-2019 Office Visit 10/18/2019 Office Visit Neurology Willard Epperson MD [address] [facility] [address] [address] [phone] [facility] Start: 10-18-2019 End: 10-18-2019 Infusion/Injection [facility] Start: 10-18-2019 End: 10-18-2019 Appointment 10/18/2019 Appointment Radiology Willard Epperson MD [address] [facility] [address] [address] [phone] [facility] Start: 04-12-2019 End: 04-12-2019 Infusion/Injection 04/12/2019 Infusion/Injection Infusion Therapy [facility] Start: 03-11-2019 End: 03-11-2019 Office Visit 03/11/2019 Office Visit Neurology Willard Epperson MD [address] [address] [phone] [facility] Start: 02-04-2019 DIABETES SCREEN DIABETES SCREEN [facility] Start: 02-03-2019 Influenza vaccination given [facility] Start: 10-12-2018 End: 10-12-2018 Infusion/Injection 10/12/2018 Infusion/Injection Infusion Therapy Willard Epperson MD [address] [facility] [address] [address] [phone] [facility] Start: 04-13-2018 End: 04-13-2018 Ambulatory 04/13/2018 Office Visit Neurology Willard Epperson MD [address] [facility] [address] [address] [phone] [facility] Start: 04-13-2018 End: 04-13-2018 Ambulatory 04/13/2018 Infusion/Injection Infusion Therapy [facility] Start: 02-03-2018 Influenza vaccination [facility] Start: 02-03-2018 Influenza vaccination given SEQUENTIAL INFLUENZA VACCINE (#1) [facility] Start: 01-19-2018 End: 01-19-2018 Ambulatory 01/19/2018 Office Visit Neurology Willard Epperson MD [address] [address] [phone] [facility] Start: 10-11-2017 Ambulatory 10/11/2017 Infusion/Injection Infusion Therapy [facility] Start: 08-25-2017 Ambulatory 08/25/2017 Office Visit Neurology Willard Epperson MD [address] [address] [phone] [facility] Start: 08-17-2017 Ambulatory 08/17/2017 Appointment Radiology Willard Epperson MD [address] [address] [phone] [facility] Start: 05-25-2017 Ambulatory 05/25/2017 Office Visit Neurology Willard Epperson MD [address] [facility] [address] [address] [phone] [facility] [facility] Start: 05-04-2017 Ambulatory 05/04/2017 Infusion/Injection Infusion Therapy [facility] Start: 02-13-2017 Ambulatory 02/13/2017 Office Visit Neurology Willard Epperson MD [address] [address] [phone] [facility] Start: 02-03-2017 Influenza vaccination SEQUENTIAL INFLUENZA VACCINE (#1) [facility] Work Phone: Start: 02-03-2017 SEQUENTIAL INFLUENZA VACCINE (#1) SEQUENTIAL INFLUENZA VACCINE (#1) [facility] Work Phone: Start: 03-31-2016 HPV TESTING HPV TESTING [facility] Start: 03-31-2016 PAP TESTING PAP TESTING [facility] Start: 02-09-2016 LIPID SCREEN LIPID SCREEN [facility] Start: 02-21-2008 Administration of herpes zoster vaccine Zoster Vaccines (1 of 2) [facility] Start: 02-21-2008 Screening for malignant neoplasm of colon [facility] Start: 02-21-2008 SHINGRIX VACCINE (1 of 2) SHINGRIX VACCINE (1 of 2) [facility] Start: 2003 COLOGUARD (FIT-DNA) COLOGUARD (FIT-DNA) [facility] Start: [address] COLONOGRAPHY [facility] Start: 2003 FECAL OCCULT BLOOD FECAL OCCULT BLOOD [facility] Start: 2003 SIGMOIDOSCOPY SIGMOIDOSCOPY [facility] Start: 02-21-1976 HEPATITIS C SCREENING HEPATITIS C SCREENING [facility] Start: 02-21-1976 HIV SCREENING HIV SCREENING [facility] Start: 1974 COVID-19 Vaccine (1 of 2) COVID-19 Vaccine (1 of 2) [facility] Start: 1974 COVID-19 Vaccine (1) COVID-19 Vaccine (1) [facility] Start: 1970 Adolescent depression screening assessment Depression Screening (PHQ9) [facility] Start: 1970 Depression screening using PHQ-9 (Patient Health Questionnaire 9) score [facility] Start: 1961 History and physical examination, annual for health maintenance Wellness Visit [facility] Start: 1960 Protein mass conc Mammogram [facility] Start: 1958 Screening for malignant neoplasm of colon [facility] Start: 1958 Screening mammography Mammogram [facility] Start: 1958 Colonoscopy COLONOSCOPY [facility] Work Phone: Start: 1958 Cytopathology procedure, preparation of smear, genital source PAP SMEAR [facility] Work Phone: Start: 1960 End: 1958 Screening colonoscopy COLONOSCOPY [facility] Work Phone: Start: 1960 End: 1958 Screening for malignant neoplasm of cervix PAP SMEAR [facility] Start: 1958 TETANUS EVERY 10 YR TETANUS EVERY 10 YR [facility] Work Phone: Start: 1960 End: 1958 Tetanus vaccination TETANUS EVERY 10 YR [facility] Work Phone: End: 04-17-2021 Cobalamin (Vitamin B12) [Mass/Vol] Vitamin B12 Lab Routine Fatigue, unspecified type 1 Occurrences starting 04/17/2020 until 04/17/2021 [facility] Comment on above: 1 Occurrences starting 04/17/2020 until 04/17/2021 End: 04-17-2021 Complete blood count with white cell differential, manual CBC and Differential Lab Routine Multiple sclerosis, primary progressive (HCC) 1 Occurrences starting 04/17/2020 until 04/17/2021 [facility] Comment on above: 1 Occurrences starting 04/17/2020 until 04/17/2021 End: 10-02-2019 Complete blood count with white cell differential, manual CBC and Differential Routine Therapeutic drug monitoring 1 Occurrences starting 10/01/2018 until 10/02/2019 [facility] Comment on above: 1 Occurrences starting 10/01/2018 until 10/02/2019 End: 10-16-2021 Complete blood count with white cell differential, manual CBC and Differential Lab Routine Multiple sclerosis, primary progressive (HCC) 1 Occurrences starting 10/16/2020 until 10/16/2021 [facility] Comment on above: 1 Occurrences starting 10/16/2020 until 10/16/2021 End: 04-17-2021 Comprehensive metabolic 2000 panel Comprehensive Metabolic Panel Lab Routine Multiple sclerosis, primary progressive (HCC) 1 Occurrences starting 04/17/2020 until 04/17/2021 [facility] Comment on above: 1 Occurrences starting 04/17/2020 until 04/17/2021 End: 10-02-2019 Comprehensive metabolic 2000 panel Comprehensive Metabolic Panel Routine Therapeutic drug monitoring 1 Occurrences starting 10/01/2018 until 10/02/2019 [facility] Comment on above: 1 Occurrences starting 10/01/2018 until 10/02/2019 End: 05-25-2018 Comprehensive metabolic panel [AGGREGATE] Comprehensive Metabolic Panel Routine Multiple sclerosis (HCC) 1 Occurrences starting 05/25/2017 until 05/25/2018 [facility] Work Phone: Comprehensive metabo lic panel [AGGREGATE] Comprehensive Metabolic Panel Routine Multiple sclerosis (HCC) 05/25/2017 10:22 AM EST [facility] Work Phone: End: 10-16-2021 Hepatic function 2000 panel - Serum or Plasma Hepatic Function Panel Lab Routine Multiple sclerosis, primary progressive (HCC) 1 Occurrences starting 10/16/2020 until 10/16/2021 [facility] Comment on above: 1 Occurrences starting 10/16/2020 until 10/16/2021 End: 04-17-2021 Immunoglobulin measurement IgG, IgA, IgM Immunoglobulins Lab Routine Multiple sclerosis, primary progressive (HCC) 1 Occurrences starting 04/17/2020 until 04/17/2021 [facility] Comment on above: 1 Occurrences starting 04/17/2020 until 04/17/2021 End: 10-16-2021 Immunoglobulin measurement IgG, IgA, IgM Immunoglobulins Lab Routine Multiple sclerosis, primary progressive (HCC) 1 Occurrences starting 10/16/2020 until 10/16/2021 [facility] Comment on above: 1 Occurrences starting 10/16/2020 until 10/16/2021 End: 09-28-2018 MR Brain With And Without Contrast MR Brain With And Without Contrast Routine Multiple sclerosis (HCC) Once for 1 Occurrences starting 09/28/2018 until 09/28/2018 [facility] Comment on above: Once for 1 Occurrences starting 09/29/19 19 until 09/28/2018 MR Brain With And Without Contrast MR Brain With And Without Contrast Routine Multiple sclerosis (HCC) 09/28/2018 1:06 PM EDT [facility] End: 08-25-2018 OCT, Optic Nerve - OU - Both Eyes OCT, Optic Nerve - OU - Both Eyes Routine Multiple sclerosis (HCC) 1 Occurrences starting 08/25/2017 until 08/25/2018 [facility] Patient referral [facility] Work Phone: End: 12-31-2022 Screening mammography bi 2-view breast inc cad HUBERT SCREENING Radiology Routine Encounter for screening mammogram for breast cancer 1 Occurrences starting 12/01/2021 until 12/31/2022 [facility] Work Phone: Comment on above: 1 Occurrences starting 12/01/2021 until 12/31/2022 End: 04-17-2021 TSH Qn TSH with Reflex Free T4 Lab Routine Fatigue, unspecified type 1 Occurrences starting 04/17/2020 until 04/17/2021 [facility] Comment on above: 1 Occurrences starting 04/17/2020 until 04/17/2021 Urine culture [facility] End: 04-17-2021 Vitamin D, 25-hydroxy measurement Vitamin D, Total, 25-OH Lab Routine Multiple sclerosis, primary progressive (HCC) 1 Occurrences starting 04/17/2020 until 04/17/2021 [facility] Comment on above: 1 Occurrences starting 04/17/2020 until 04/17/2021 End: 10-01-2019 Vitamin D, 25-hydroxy measurement Vitamin D, Total, 25-OH Routine Therapeutic drug monitoring 1 Occurrences starting 10/01/2018 until 10/01/2019 [facility] Comment on above: 1 Occurrences starting 10/01/2018 until 10/01/2019 End: 05-25-2018 Vitamin D, Total, 25-OH Vitamin D, Total, 25-OH Routine Multiple sclerosis (HCC) 1 Occurrences starting 05/25/2017 until 05/25/2018 [facility] Work Phone: Vitamin D, Total, 25-OH Vitamin D, Total, 25-OH Routine Multiple sclerosis (HCC) 05/25/2017 10:22 AM EST [facility] Work Phone: Immunizations Immunization Date Immunization Notes Care Provider Fa cilijose 10-21-2020 COVID-19 vaccine, ag e 12+ yr (PFIZER-BIONTECH - PURPLE TOP) Joan Hughes MD Work Phone: [facility] Work Phone: 09-28-2020 COVID-19 vaccine, ag e 12+ yr (PFIZER-BIONTECH - PURPLE TOP) Joan Hughes MD Work Phone: [facility] Work Phone: 02-09-2017 AFLURIA QUAD 18, PF, syringe; Translations: [Afluria Quad (Pf) 60 McG/0.5 Ml Intramuscular Syringe] Jeanne Hilario [facility] Work Phone: 02-08-2016 influenza, seasonal, injectable Joan Hughes MD Work Phone: [facility] 02-22-2013 influenza virus vaccine, unspecified formulation Joan Hughes MD Work Phone: [facility] 03-03-2012 influenza virus vaccine, unspecified formulation Joan Hughes MD Work Phone: [facility] 02-09-2012 tetanus toxoid, redu deinz diphtheria toxoid, and acellular pertussis vaccine, adsorbed Joan Hughes MD Work Phone: [facility] 04-07-2010 pneumococcal polysaccharide vaccine, 23 valent Joan Hughes MD Work Phone: [facility] 03-25-2008 influenza virus vaccine, unspecified formulation Joan Hughes MD Work Phone: [facility] 04-03-2007 influenza virus vaccine, unspecified formulation Joan Hughes MD Work Phone: [facility] Work Phone: 04-17-2006 influenza virus vaccine, unspecified formulation Joan Hughes MD Work Phone: [facility] 05-17-2005 influenza virus vaccine, unspecified formulation Joan Hughes MD Work Phone: [facility] Work Phone: Payers Date Payer Category Payer Self-pay [id number] 2023 Unknown [id number] 2013 Unknown [id number] 2. [id number] 2013 Unknown [id number] 2. 16.840.1.405222.3.249.13 2013 Unknown [id number] 1.2.840.412269.1.13.385.2.7.3.372331.315 2013 Unknown [id number]. 1.13.385.2.7.3.204249.315 1958 Unknown [id number] 2.16. 840.1.259159.3.579.2.900 1958 Unknown [id number] 2.16. 840.1.429907.3.579.2.900 1958 Unknown [id number] 2.16. 840.1.570082.3.579.2.900 1958 Unknown [id number] 2.16. 840.1.646668.3.579.2.900 1958 Unknown [id number] 2.16. 840.1.467756.3.579.2.900 1958 Unknown [id number] 2.16. 840.1.942629.3.579.2.900 1958 Unknown [id number] 2.16. 840.1.881072.3.579.2.900 1958 Unknown [id number] 2.16. 840.1.587580.3.579.2.900 1958 Unknown [id number] 2.16. 840.1.908524.3.579.2.900 1958 Unknown [id number] 2.16. 840.1.983538.3.579.2.903 1958 Unknown [id number] 2.16. 840.1.599664.3.579.2.903 Medicare MEDICARE PART A B [id number] Unknown [id number] 2.16.8 40.1.106415.3.579.2.462 Unknown [id number] 2.16.8 40.1.790658.3.579.2.462 Unknown [id number] 2.16.8 40.1.139655.3.579.2.462 Unknown [id number] 2.16.8 40.1.019015.3.579.2.462 Unknown [id number] 2.16.8 40.1.651871.3.579.2.462 Unknown [id number] 2.16.8 40.1.148550.3.579.2.462 Unknown [id number] 2.16.8 40.1.570602.3.579.2.462 Unknown [id number] 2.16.8 40.1.524745.3.579.2.462 Unknown [id number] 2.16.8 40.1.805388.3.579.2.462 Unknown [id number] 2.16.8 40.1.926317.3.579.2.462 Unknown [id number] 2.16.8 40.1.442344.3.579.2.462 Unknown [id number] 2.16.8 40.1.465622.3.579.2.462 Unknown [id number] 2.16.8 40.1.867145.3.579.2.462 Unknown [id number] 2.16.8 40.1.654345.3.579.2.462 Unknown [id number] 2.16.8 40.1.166736.3.579.2.462 Unknown [id number] 2.16.8 40.1.367771.3.579.2.462 Unknown [id number] 2.16.8 40.1.181192.3.579.2.462 Unknown [id number] 2.16.8 40.1.552496.3.579.2.462 Unknown [id number] 2.16.8 40.1.467361.3.579.2.462 Unknown [id number] 2.16.8 40.1.107135.3.579.2.462 Unknown [id number] 2.16.8 40.1.095814.3.579.2.462 Unknown [id number] 2.16.8 40.1.735964.3.579.2.462 Unknown [id number] 2.16.8 40.1.945045.3.579.2.462 Unknown [id number] 2.16.8 40.1.140725.3.579.2.462 Unknown [id number] 2.16.8 40.1.883347.3.579.2.462 Unknown [id number] 2.16.8 40.1.292672.3.579.2.462 Unknown [id number] 2.16.8 40.1.176857.3.579.2.462 Unknown [id number] 2.16.8 40.1.020263.3.579.2.462 Unknown [id number] 2.16.8 40.1.319709.3.579.2.462 Unknown [id number] 2.16.8 40.1.085815.3.579.2.462 Unknown [id number] 2.16.8 40.1.451363.3.579.2.462 Unknown [id number] 2.16.8 40.1.712114.3.579.2.462 Unknown [id number] 2.16.8 40.1.163857.3.579.2.462 Unknown [id number] 2.16.8 40.1.960206.3.579.2.462 Unknown [id number] 2.16.8 40.1.896492.3.579.2.462 Unknown [id number] 2.16.8 40.1.236187.3.579.2.462 Unknown [id number] 2.16.8 40.1.923210.3.579.2.462 Social History Date Type Detail Facility Start: 10-11-2017 End: 07-05-2022 Tobacco smoking status NHIS Never smoker [facility] Work Phone: Start: 1960 Sex Assigned At Not on file [facility] Work Phone: Start: 04-16-2019 End: 07-14-2021 Alcohol intake Current non-drinker of alcohol (finding) [facility] Exposure to SARS-CoV -2 (event) Not sure [facility] Start: 04-13-2017 End: 10-18-2019 Tobacco use and exposure Never used [facility] Start: 09-16-2021 End: 07-05-2022 Tobacco smoking status NHIS Unknown if ever smoked [facility] Start: 01-25-2020 Alone [facility] Start: 1960 Sex Assigned At Female [facility] Start: 09-05-2024 End: 09-06-2024 Sex Female (finding) [facility] Goals Date Patient Goal Desired Activity /State Functional Status Date Assessment Result Facility 09-28-2021 Functional status Patient Activity Chair [facility] Work Phone: 09-28-2021 Functional status Activity Abili ty With Assist of 2 [facility] Work Phone: 09-28-2021 Functional status Rolling Walker [facility] Work Phone: Mental Status Date Assessment Result Facility 09-28-2021 Cognitive function Voice/Name [facility] Work Phone: 09-16-2021 Cognitive function Level Of Cons ciousness Awake;Alert;Appropriate;Follow s Commands [facility] Work Phone: Clinical Notes 10-16-2020 to 11-09-2022 Willard Epperson MD - 06/23/2022 11:31 AM ESTPatient InstructionsPatient InstructionsDatre Epperson MD - 04/09/2021 8:00 AM EDTSmithWillard MD - 10/29/2020 10:03 AM EDT Note Date & Type Note Facility 11-09-2022 Note Patient Outreach (IN TMMN) BRITNEY PERAZA ([id number]) 1960 F TXT Date Time Provider Department [...] for screening mammogram for breast cancer [Z12.31] Order(s):[facility] SCREENING [[id number]] Order #: [id number] FUTURE Prescriptions as of 11/14/2022 - atenolol [...] sclerosis) (HCC) [G35] 01/14/2019 Encounter Status:Closed by [facility] 11/14[facility]22 [facility] 06-23-2022 History of Present illness Narrative Left voicemail message with patient. Was not sure if she wanted to continue to follow-up in clinic. Would be happy to see her back, even if she is no longer on disease modifying therapy to work on symptomatic management. Provided with the number for the toll test desk worker if she is interested in rescheduling. documented in this encounter [facility] 12-01-2021 Note Patient Outreach (IN TMMN) BRITNEY PERAZA ([id number]) 1960 F TXT Date Time Provider Department [...] for screening mammogram for breast cancer [Z12.31] Order(s):[facility] SCREENING [[id number]] Order #: [id number] FUTURE Prescriptions as of 12/06/2021 - atenolol [...] sclerosis) (HCC) [G35] 01/14/2019 Encounter Status:Closed by [facility] on 12/06/21 [facility] 04-09-2021 Instructions Zahra Pratt RN - 04/09/2021 [...] the medicines you take, including prescription and ipli-qlb-oztsgkk medicines. vitamins, and herbal supplements. How will [...] may report side effects to FDA at 0-603-ZYO-8938. General information about the safe and effective [...] sodium acetate trihydrate, trehalose dihydrate. Manufactured by: [employer] A Member of [employer], [address] [place] [address], [place] [address] [place] License No. [id number] For more information, go to www.CallApp.Eurocept or call . This Medication Guide has been approved by the U.S. Food and Drug Administration documented in this encounter [facility] 04-09-2021 Instructions Willard Epperson MD - 04/09/2021 8:16 AM EDT [employer] [id number] [phone] documented in this encounter [facility] 04-09-2021 History of Present illness Narrative Images from the original note were not included. 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 She is overdue for this. For MS Symptom Management, I recommend the following plan: a. She does not take any symptomatic medications. We recommend a regular exercise program. Patient declined this portion of services with her home health. Social work consult to help assist with possible assisted living as discussed above. I recommend continuing Vitamin D3 73240 IU once every other daily. Goal levels [...] me in 6 months. Willard Epperson MD [facility] Neuroimmunology/ Neuroinfectious Disease ([facility], and [place] [facility]) General Neurology ([place]) ([place]) [facility] Address: [address] [place] [address], [address] [address] [place] Address [address] [facility] [address], [address] [place] [address] [facility] [address] [place] [address], [address] Chief Complaint: Neuro-immunology clinic follow up INTERIM HISTORY Britney Peraza is here for follow up. Last was seen 10/23. Accompanied by her sister today. She has her infusion scheduled later this morning. No new symptoms to report, though her sister feels she minimizes worsening gait impairment. We had placed orders for [facility]. They had been providing her with a [...] Swelling Naproxen Sodium Hives, Itching and Swelling Pjjfpybtcujq-Bud-Hubwkigk tachycardia tachycardia Penicillins Hives Sulfa (Sulfonamide Antibiotics) Hives Tetracycline Hives Current Outpatient Medications Medication Sig Dispense Refill acetaminophen (TYLENOL) 500 MG tablet Take 500 mg by mouth every 6 (six) hours as needed for pain. AFLURIA QUAD [id number], PF, syringe ADMINISTERED AT DDM 0 atenolol [...] documentation: 40 minutes. documented in this encounter [facility] 01-08-2021 Miscellaneous Notes Changed pharmacies documented in this encounter [facility] 10-29-2020 History of Present illness Narrative Are we able to fax this order for home health to [facility] in [facility]? Contact is: Toll Free [phone] Also, can we reschedule her Apr visit [...] her regarding this? documented in this encounter [facility] 10-16-2020 History of Present illness Narrative Images from the original note were not included. 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 For MS Symptom Management, I recommend the following plan: a. She does not take any symptomatic medications. We recommend a regular exercise program. We will order home health therapy for her. Denies any social work needs at this time I recommend continuing Vitamin D3 90917 IU once daily. Goal levels of Vitamin [...] proximity to her next infusion. Follow-up with me April 2021. Willard Epperson MD [facility] Neuroimmunology/ Neuroinfectious Disease ([facility], and [place] [facility]) General Neurology ([facility] and [facility]) ([place]) [place] Address: [address] [place] [address], [address] [address] [place] Address [address], [address] [place] [address] [facility] [address] [facility], [address] Chief Complaint: Neuro-immunology clinic follow up INTERIM [...] Swelling Naproxen Sodium Hives, Itching and Swelling Pfkejtvawunn-Mrz-Cbigcyrl tachycardia tachycardia Penicillins Hives Sulfa (Sulfonamide Antibiotics) Hives Tetracycline Hives Current Outpatient Medications Medication Sig Dispense Refill acetaminophen (TYLENOL) 500 MG tablet Take 500 mg by mouth every 6 (six) hours as needed for pain. AFLURIA QUAD [id number], PF, syringe ADMINISTERED AT DDM 0 atenolol [...] of T2/FLAIR signal abnormalities compatible with demyelination. MD [employer] Workstation ID: [id number] Results for orders placed [...] air cells are clear. Nasopharynx is normal. Order Builder spaces are normal. Orbital contents are normal. [...] or enhancing lesions. 3. Stable brain atrophy. [employer]? Workstation ID: [id number] Total time spent, including over 50% or more spent face to face with the patient discussing the risk and benefits of any medications, reviewing available data and counseling patient on treatment plan was 30 minutes. The aforementioned impression & plan were discussed with the patient. documented in this encounter [facility] 10-16-2020 Instructions LiangLata RN - 10/16/2020 12:37 [...] Pt voiced understanding. documented in this encounter [facility] 10-16-2020 Instructions Lata Liang RN - 10/16/2020 [...] Pt voiced understanding. documented in this encounter [facility] 10-16-2020 History of Present illness Narrative Labs obtained with insertion of PIV, which will be used for the infusion today. Specimens labeled per policy and taken to the lab in [facility] [place] for processing. documented in this encounter [facility] 10-16-2020 History of Present illness Narrative Labs obtained with insertion of PIV, which will be used for the infusion today. Specimens labeled per policy and taken to the lab in [facility] [place] for processing. documented in this encounter [facility] Evaluation note Diagnosis Multiple sclerosis, primary progressive (HCC)- Primary [facility] Diagnosis Multiple sclerosis, primary progressive (HCC)- Primary [facility] Diagnosis Multiple sclerosis, primary progressive (HCC)- Primary Vitamin D deficiency Paresis of lower extremity (HCC) Unspecified paralysis History of gait disorder [facility] Diagnosis Multiple sclerosis, primary progressive (HCC)- Primary documented in this encounter [facility] note* Diagnosis Vitamin D deficiency documented in this encounter [facility] note* Diagnosis Multiple sclerosis, primary progressive (HCC)- Primary Multiple sclerosis (HCC) Multiple sclerosis documented in this encounter [facility] note* Diagnosis Multiple sclerosis, primary progressive (HCC)- Primary Vitamin D deficiency Spasticity Abnormal involuntary movements Ataxia Lack of coordination Cognitive impairment Unspecified persistent mental disorders due to conditions classified elsewhere documented in this encounter [facility] note* Diagnosis Onset Date Resolution Status Acute cystitis acute Complicated urinary tract infection acute Infectious encephalopathy ac isha Severe sepsis acute [facility] Work Phone: Evaluation note* Diagnosis Onset Date Resolution Status Acute respiratory failure with hypoxia acute Complicated urinary tract infection acute COVID-19 acute Debility acute Lactic acidosis acute Sepsis acute [facility] Work Phone: Evaluation note* Diagnosis Onset Date Resolution Status Debility acute Acute respiratory failure with hypoxia resolved Complicated urinary tract infection resolved COVID-19 resolved Lactic acidosis resolved Sepsis resolved [facility] Work Phone: Evaluation note* Diagnosis Encounter for screening mammogram for breast cancer documented in this encounter [facility] noteNo assessment information [facility]WDay[facility] Work Phone: Evaluation note* Diagnosis Multiple sclerosis, primary progressive (HCC)- Primary [facility] Work Phone: [facility] Work Phone: [facility] Work Phone: [facility] Work Phone: Reason for referral (narrative)* Diagnostic Procedure Only (Routine) - Pending Review Specialty Diagnoses / Procedures Referred By Gaston t Referred To Contact [facility] Diagnoses Encounter for screening mammogram for breast cancer Procedures HUBERT SCREENING SCREENING MAMMOGRAPHY BI 2-VIEW BREAST INC Joan Palomino MD [address] [place] [address] [facility] [address] [place] [address] Referral ID Status Reason Start Date Expiration Date Visits Requested Visits Authorized [id number] Pending Review Auto-Generat ed Referral 12/01/2021 12/31/2022 1 1 [facility] for referral (narrative)No reason for referral information availableWDayton Children's Hospital Work Phone: Instructions * Patient Instructions [...] would require purchasing a compounded version from [employer] One source to purchase this is https://mobiliThink/[email or web address]-count/ Physical Therapy: 1. Recommend return to PT [...] of its ingredients in the past. See "What are the ingredients In OCREVUS?" for a complete list of ingredients in OCREVUS. Before receiving OCREVUS, tell your healthcare provider about all of your medlcal conditions, Including if you: ; have or think you have an infection. See "What Is the most important information I should know about OCREVUS?" ; have ever taken, take, or plan [...] the medicines you take, including prescription and kose-hpx-rthffvs medicines, vitamins_._and herbal supplements. _ _ _ [...] the most Importantinformation I should know about OCREVUS?" ; Your first full dose of OCREVUS [...] most Important information I should know about OCREVUS?" ; Risk of cancers (malignancies) including breast cancer. Follow your healthcare provider's instructions about standard screening guidelines for breast cancer. Most common side effects include Infusion reactions and infections. See 'What is the most importantinformation I should know about OCREVUS?" These are not all the posslble side effects of OCREVUS. Call your doctor for medical advice about side effects. You may report side effects to FDA at 4-432-XPY-0546. General Information about the safe and effective [...] sodium acetate trihydrate, trehalose dihydrate. Manufactured by: [employer] A Member of the [employer], [address] [place] [address], [place] [address] [place] License No.[id number] For more lnformation, go to www.CallApp.Eurocept or_call 1-900-558-38BZ. This Medication Guide has been approved by [...] Anxiety Anxiety state, unspecified Diagnosis Multiple sclerosis ([facility]) - P rimary Multiple sclerosis Diagnosis Multiple sclerosis ([facility]) - P rimary Multiple sclerosis Diagnosis Multiple sclerosis ([facility]) - P rimary Multiple sclerosis Paresis of lower extremity ( HCC) Unspecified paralysis Ataxia Lack of coordination Muscle spasm Spasm of muscle Diagnosis Multiple sclerosis (HCC) Multiple sclerosis Diagnosis Multiple sclerosis, primary progressive (HCC)- Primary Diagnosis Multiple sclerosis (HCC)- Primary Multiple sclerosis Diagnosis Multiple sclerosis (HCC) Multiple sclerosis Diagnosis Multiple sclerosis, primary progressive ([facility]) Diagnosis Multiple sclerosis, primary progressive (HCC)- Primary [...] With And Without Contrast Willard Epperson MD [address] [place] [address] Status Reason Specialty Diagnoses / Procedures Referred By Contact Referred To Contact Authorized Specialty Services Required/Patien t's Best Interest Physical Therapy Diagnoses Multiple sclerosis ([facility]) Willard Epperson MD [address] [place] [address] Status Reason Specialty Diagnoses / Procedures Referre d By Contact Referred To Contact Closed Radiology Diagnoses Multiple sclerosis ([facility]) Procedures MR Brain Without Contrast Willard Epperson MD [address] [place] [address] Status Reason Specialty Diagnoses / Procedures Referred By Contact Referred To Contact Closed Specialty Services Required/Patien t's Best Interest Income Tax Adjuster Diagnoses Multiple sclerosis ([facility]) Willard Epperson MD [address] [place] [address] Dory Velez LISW-S Status Reason Specialty Diagnoses / Procedures Referred By Contact Referred To Contact New Request Radiology Diagnoses Multiple sclerosis, primary progressive (HCC) Procedures MR Thoracic Spine With And Without Contrast Willard Epperson MD [address] [place] [address] [address] [place] [address] Status Reason Specialty Diagnoses / Procedures Referred By Contact Referred To Contact New Request Radiology Diagnoses Multiple sclerosis, primary progressive (HCC) Procedures MR Cervical Spine With And Without Contrast Willard Epperson MD [address] [place] [address] Rd [address] [place] [address] Status Reason Specialty Diagnoses / Procedures Referred By Contact Referred To Contact New Request Radiology Diagnoses Multiple sclerosis, primary progressive (HCC) Procedures MR Brain With And Without Contrast Willard Epperson MD [address] [place] [address] Rd [address] [place] [address] Status Reason Specialty Diagnoses / Procedures Referred By Contact Referred To Contact Authorized Specialty Services Required/Patie nt's Best Interest Home Health Services Diagnoses Multiple sclerosis, primary progressive (HCC) Willard Epperson MD [address] [place] [address] Rd [address] [place] [address] Specialty Diagnoses / Procedures Referred By Contac t Referred To Contact Income Tax Adjuster Diagnoses Multiple sclerosis, primary progressive (HCC) Willard Epperson MD [address] [place] [address] Rd [address] [place] [address] Dory Velez LISW-S Referral ID Status Reason Start Date Expiration Date V isits Requested Visits Authorized [id number] Closed Specialty Services Required/Oneida ent's Best Interest 04/09/2021 04/09/2022 1 1 Advance Directives No Advanced Directives Records FoundDocuments on File Type Date Recorded 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 Advance Directives and Livin g Will 04/12/2019 8:19 AM Documents on File Type Date Recorded 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 Advance Directives and Livin g Will 04/12/2019 8:19 AM Documents on File Type Date Recorded 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 Advance Directives and Livin g Will 10/18/2019 6:47 AM Documents on File Type Date Recorded 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 Advance Directives and Livin g Will 10/18/2019 6:47 AM Documents on File Type Date Recorded 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 Advance Directives and Livin g Will 04/17/2020 6:47 AM Documents on File Type Date Recorded 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 Advance Directives and Livin g Will 04/17/2020 6:47 AM Documents on File Type Date Recorded 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 Advance Directives and Livin g Will 10/16/2020 6:47 AM Documents on File Type Date Recorded 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 Advance Directives and Livin g Will 10/16/2020 6:47 AM Documents on File Type Date Recorded 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 Advance Directives and Livin g Will 04/09/2021 6:47 AM Documents on File Type Date Recorded 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 Advance Directives and Livin g Will 04/09/2021 6:47 AM Advance Directive Response Recorded Date/ Time Living Will Yes September 16, 2021 2:30pm Power of Gas Technician Yes September 16 2:30pm Advance Directive Response Recorded Date/ Time Name of Medical Power of Gas Technician jacque schwartz September 16, 2021 2:30pm Living Will Yes September 16, 2021 2:30pm Power of Gas Technician Yes September 16 2:30pm Advance Directive Response Recorded Date/ Time Living Will Yes September 16, 2021 1:30pm Power of Gas Technician Yes September 16 1:30pm Advance Directive Response Recorded Date/ Time Living Will Yes July 05 11:24am Power of Gas Technician Yes July 05, 2022 11:24am Advance Directive Response Recorded Date/ Time Living Will Yes July 05 12:24pm Power of Gas Technician Yes July 05, 2022 12:24pm History of Present Illness * Jeanne Hilario CMA - 02/13/2017 1:04 PM EDT Faxed [facility] ([phone]) a physical therapy order along with face [...] advised patient to not hesitate to call MD/911 if any serious issues arose tonight. Patient and caregiver voiced understanding. documented in this encounter* Willard Epperson MD - 04/16/2019 8:02 PM EST [facility] 04/12/2019 IMPRESSIONS Britney Peraza [...] trials and in our experience here at [facility], most infusion related reactions are mild to [...] visit. 3. Please sign up for the Onovative patient portal. [place] Emergency Registry provides assess to your medical record and test results, allows you to communicate with your care providers, and allows you to complete patient questionnaires prior to each clinic visit. 4. When your testing is completed, your MS care team will review all results and contact you if a finding requires follow up before your next visit. Otherwisee, we will discuss your test results [id number]-asnd at your next clinic visit. Many of your testing results, however, can be reviewed online through [place] Emergency Registry. MS Disease Summary Primary Neurological Diagnosis and [...] hours as needed for pain. AFLURIA QUAD [id number], PF, syringe ADMINISTERED AT DDM 0 atenolol [...] Swelling Naproxen Sodium Hives, Itching and Swelling Shxnvvdmzvhn-Kjc-Totprfin tachycardia tachycardia Penicillins Hives Sulfa (Sulfonamide Antibiotics) [...] file Gets together: Not on file Attends quaker service: Not on file Active member of club or organization: Not on file Attends meetings of clubs or organizations: Not on file Relationship status: Not on file Other Topics Concern Not on file Social History Narrative Not on file GENERAL PHYSICAL EXAMINATION Vital Signs: Blood pressure 124/78, pulse (!) 106, height 5' 4", weight 59 kg (130 lb), not currently [...] inaccurate or outdated, even if it looks real". If you have questions about things you read, we recommend you discuss them with your care provider. Below are list of links to MS educational sources online: [facility] ([facility].com/MS) Multiple Sclerosis Association of [place] (www.mymsaa.org) Multiple Sclerosis Foundation (www.msfocus.org) Can do Multiple Sclerosis ( www.mscando.org ) National Multiple Sclerosis Society (www.nationalmssociety.org) Twitter: @[facility] Facebook: [facility] Instagram: [facility] 5. For information on the [facility]'s clinical trial program contact Sari Bolden [facility]. 6. MS Groups take place at [facility] Education and Resource [place] at [facility]: [address] [place] [address]. Parking vouchers will be provided. Life with [...] the Monday of the month from 5:30-7pm. Caregiver/Industrial Waste Inspector Support Group: offers opportunities to connect with [...] experienced yoga practitioners. Pre- registration is required: [phone] 7. Education regarding disease modifying therapy discussed [...] Willard Epperson MD Neuroimmunology and Neuroinfectious Disease [facility] at [facility] ([facility] fax) [facility] Address: [address] [place] [address], [address] [address] [place] Address [address] [place] [address], [address] [place] [address] documented in this encounter* Jeanne Hilario CMA - 04/18/2019 8:25 AM EST Faxed [employer] ([phone]) a physical therapy referral along with face sheet and Insurance card to call patient to schedule. documented in this encounter* Willard Epperson MD - 10/18/2019 10:43 AM EDT Telephone Visit Via Phone Call [facility] [address] [facility], NEUROSCIENCE [address] [facility] [phone] Telephone Visit [facility] 10/18/2019 Willard Epperson MD Provider Location: [facility] Patient Location Etl Application Developer: None Patient Location: Patient's Home Patient: Britney [...] there are inherent diagnostic limitations compared to btak-na-tmqj evaluations. We elected toproceed with the telephone visit telemedicine consultation. HPI Today she is currently at the [facility] receiving her infusion. She has been [...] hours as needed for pain. AFLURIA QUAD [id number], PF, SYRINGE ADMINISTERED AT [facility] ATENOLOL (TENORMIN) 25 MG TABLET Take 25 [...] Continue with vitamin D 5000 units daily cakz-dtm-lonyvtd Continue Ampyra 10 mg twice daily and [...] EDT Faxed new Physical Therapy order to [facility] ([phone]) to call and schedule in home visits [...] her biggest problem. Patient lives alone in [place], [place] and sister lives in [place]. Falls in past 6 months: > 6, [...] Dory Velez LISW-S - 04/17/2020 11:56 AM EST [place] met with pt and her sister Jacque while pt was receiving her Ocrevus infusion. Introduced self and reviewed SW role. Pt presented as pleasant and easily engaged in conversation. Pt shared she doesnot like getting old. Validated her feelings - that with age can come the need for help. Pt has a pMDsoft dical alert system. She is receiving 2 hours of aide support, 2 times per week. Her bathroom was remodeled with a walk-in shower and a chair lift was installed to get pt safely from her garage into the home. It appears that pt would benefit from meals on wheels, as her aide is only allowed to pickup driver groceries, so pt does not have easy access to food/shopping. Jacque lives in [place]. In reviewing past and present in-home supports, it appears that pt is enrolled in the PASSPORT program. She has contact info for "Krystle." Encouraged calling Krystle to discuss an increase in services. Jacque stated she will do so. Asked if Jacque is officially pt's Health Care POA. Pt reported she completed a Health Care POA form and Living Will and Jacque is her POA. Jacque asked for a blankform in case they can not locate pt's copies and need to update the paperwork. EUSEBIA will provide thistoday. Encouraged pt and/or Jacque to call on EUSEBIA if they are not able to connect with "Krystle" or they have future concerns/questions. There were agreeable. [place]SE[place] business card was provided. Resource info provided: [facility] ([facility]) at - Re: PASSPORT program. Advance Directives Packet * Willard Epperson MD - 04/17/2020 10:30 AM EST Patient Name: Britney Peraza : 1960 MR #: [id number] Other Physicians: Joan Hughes MD (Primary Care Physician) [facility] Follow-up Visit 04/17/2020 IMPRESSION: [...] me in 3 months. 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 Confirms about 12 calls with [employer] over the last year. Would benefit significantly [...] Swelling Naproxen Sodium Hives, Itching and Swelling Zxjvkjsakhow-Bwr-Zcdgesdq tachycardia tachycardia Penicillins Hives Sulfa (Sulfonamide Antibiotics) Hives Tetracycline Hives Current Outpatient Medications Medication Sig Dispense Refill acetaminophen (TYLENOL) 500 MG tablet Take 500 mg by mouth every 6 (six) hours as needed for pain. AFLURIA QUAD [id number], PF, syringe ADMINISTERED AT DDM 0 atenolol [...] Blood pressure 131/80, pulse 86, height 5' 4", weight 59 kg (130 lb), not currently [...] EST Faxed a physical therapy order to [facility] ([phone]) along with face sheet and Insurance card to call and schedule with patient. documented in this encounter* Willard Epperson MD - 09/28/2018 3:49 PM EDT [facility] at [facility] Follow Up Note 09/28/2018 IMPRESSIONS Britney [...] trials and in our experience here at [facility], most infusion related reactions are mild to [...] their MS practitioner 9. Further Information about Carlos Albertous is noted below. PLAN RELATED TO SYMPTOMATIC [...] visit. 3. Please sign up for the Onovative patient portal. [place] Emergency Registry provides assess to your medical record and test results, allows you to communicate with your care providers, and allows you to complete patient questionnaires prior to each clinic visit. 4. When your testing is completed, your MS care team will review all results and contact you if a finding requires follow up before your next visit. Otherwisee, we will discuss your test results upmi-xt-wnwk at your next clinic visit. Many of your testing results, however, can be reviewed online through [place] Emergency Registry. DISEASE SUMMARY Primary Neurological Diagnosis and Date [...] is also noticeable by her sister and zcbxdkp-sg-jwb with regards toambulation. There have been no [...] hours as needed for pain. AFLURIA QUAD [id number], PF, syringe ADMINISTERED AT DDM 0 atenolol [...] Swelling Naproxen Sodium Hives, Itching and Swelling Thltyuzatagv-Cnd-Oljpzxwm tachycardia tachycardia Penicillins Hives Sulfa (Sulfonamide Antibiotics) [...] Blood pressure 145/80, pulse 89, height 5' 4", weight 59 kg (130 lb), not currently [...] Willard Epperson MD Neuroimmunology and Neuroinfectious Disease [facility] at [facility] ([facility] fax) [facility] Address: [address] [place] [address] [address] [address] [place] Address [address] [facility], [address] [place] [address] documented in this encounter Summary Purpose Family [...] WITH SEPSIS UTI WITH SEPSIS ADMISSION EXAM [facility] Reason for Visit Debility Acute [...] WITH SEPSIS UTI WITH SEPSIS ADMISSION EXAM [facility] LABWORK LABWORK LAB WORK NEW SYMPTOMS/CONCERN [...] WITH SEPSIS UTI WITH SEPSIS ADMISSION EXAM [facility] LABWORK LABWORK LAB WORK NEW SYMPTOMS/CONCERN ALTERED MENTAL STATUS [facility] NEW SYMPTOMS/CONCERNS Reason for Visit Debility Acute respiratory failure with hypoxia Complicated urinary tract infection COVID-19 Lactic acidosis Sepsis Chief Complaint ADMISSION EXAM [facility] LABWORK LABWORK LAB WORK NEW SYMPTOMS/CONCERN ALTERED MENTAL STATUS [facility] NEW SYMPTOMS/CONCERNS [facility] LAB WORK [facility] LAB WORK Chief Complaint LABWORK LABWORK LAB WORK NEW SYMPTOMS/CONCERN ALTERED MENTAL STATUS [facility] NEW SYMPTOMS/CONCERNS [facility] LAB WORK [facility] LAB WORK [facility] Chief Complaint NEW SYMPTOMS/CONCERN ALTERED MENTAL STATUS [facility] NEW SYMPTOMS/CONCERNS [facility] LAB WORK [facility] LAB WORK [facility] LABWORK MONTHLY EXAM Chief Complaint NEW SYMPTOMS/CONCERN S [facility] LAB WORK [facility] LAB WORK [facility] LABWORK MONTHLY [facility]AM [facility] Chief Complaint [facility] LAB WORK [facility] LAB WORK [facility] LABWORK MONTHLY EXAM LABWORK [facility] Chief Complaint [facility] LAB WOR K [facility] LAB WORK [facility] LABWORK MONTHLY EXAM LABWORK [facility] ACUTE CARE NOTE Chief Complaint [facility] LAB WOR K [facility] LAB WORK [facility] LABWORK MONTHLY EXAM LABWORK [facility]WORK [facility] ACUTE CARE NOTE ACUTE CARE Chief Complaint MONTHLY EXAM LABWORK [facility]WORK [facility]WORK [facility] ACUTE [facility]ARE NOTE ACUTE CARE [facility] LAB WORK [facility] LAB WORK [facility] LAB WORK ACUTE CARE Chief Complaint LABWORK [facility] ACUTE [facility]ARE NOTE ACUTE CARE [facility] WORK [facility] WORK [facility] WORK [facility] WORK ACUTE CARE Chief Complaint LABWORK [facility] ACUTE CARE NOTE ACUTE CARE [facility] ACUTE CARE Chief Complaint [facility] ACUTE CARE NOTE ACUTE CARE [facility] [facility] ACUTE CARE [facility] MONTHLY NOTE [facility] Chief Complaint [facility] NOTE ACUTE CARE [facility] ACUTE CARE [facility] MONTHLY NOTE [facility] ACUTE CARE [facility] MONTHLY [facility]AM Chief Complaint [facility] WOR K [facility] ACUTE CARE [facility] MONTHLY NOTE [facility] ACUTE CARE [facility] MONTHLY [facility]AM [facility] NEW CONCERN Chief Complaint [facility] K [facility] ACUTE CARE [facility] MONTHLY NOTE [facility] ACUTE CARE [facility] MONTHLY EXAM [facility] NEW CONCERN Chief Complaint [facility] ACUTE CARE [facility] MONTHLY NOTE [facility] ACUTE CARE [facility] MONTHLY [facility]AM [facility] NEW CONCERN [facility] Chief Complaint [facility] MONTHLY NOTE [facility] ACUTE CARE [facility] MONTHLY EXAM [facility] NEW CONCERN [facility] MONTHLY [facility]AM [facility] Chief Complaint MONTHLY NOTE [facility] ACUTE CARE [facility] MONTHLY EXAM [facility] NEW CONCERN [facility] MONTHLY [facility]AM [facility] Chief Complaint [facility] MONTHLY NOTE [facility] MONTHLY [facility]AM [facility] MOTNHLY NOTE [facility] Chief Complaint [facility] MONTHLY NOTE [facility] MONTHLY [facility]AM [facility] MOTNHLY NOTE [facility] Chief Complaint [facility] MONTHLY [facility]AM [facility] MOTNHLY NOTE [facility] MONTHLY [facility]AM [facility] LABWORK Chief Complaint MONTHLY [facility]AM [facility] MOTNHLY NOTE [facility] MONTHLY [facility]AM [facility] LAB[facility] Chief Complaint [facility] LABWORK [facility] MONTHLY EXAM MONTHLY NOTE MONTHLY EXAM [facility] Chief Complaint MONTHLY NOTE MONTHLY EXAM MONTHLY EXAM - ANIMAL ANATOMIST [facility] MONTHLY EXAM - [facility] Chief Complaint MONTHLY EXAM - ANIMAL ANATOMIST [facility] MONTHLY EXAM - [facility] LABWORK Chief Complaint MONTHLY EXAM - ANIMAL ANATOMIST [facility] MONTHLY EXAM - [facility] MONTHLY NOTE -PA NEW CONCERN [facility] LABWORK Chief Complaint MONTHLY EXAM - ANIMAL ANATOMIST [facility] MONTHLY EXAM - MD [facility] MONTHLY NOTE -PA NEW CONCERN [facility] MONTHLY EXAM MD LABWORK [facility] Chief Complaint [facility] WOR K MONTHLY NOTE [facility]PA NEW CONCERN [facility] MONTHLY EXAM MD LABWORK [facility] Chief Complaint NEW CONCERN [facility] WORK MONTHLY EXAM MD LABWORK [facility] NEW CONCERN [facility] MONTHLY EXAM Chief Complaint Admit Date MONTHLY NOTE June 07, 2024 4: 12pm [facility] June 11, 2024 5:30am NEW CONCERN June 18, 2024 1 :49pm [facility] July 09, 2024 5:00am MONTHLY EXAM July 09, 2024 5 :27pm [facility] August 06, 2024 4: 00am [facility] August 19, 2024 1 2:05pm Chief Complaint Admit Date MONTHLY NOTE June 07, 2024 4: 12pm [facility] June 11, 2024 5:30am NEW CONCERN June 18, 2024 1 :49pm [facility] July 09, 2024 5:00am MONTHLY EXAM July 09, 2024 5 :27pm NEW CONCERN August 05, 2024 4:07 pm [facility] August 06, 2024 4: 00am [facility] August 19, 2024 1 2:05pm NEW CONCERN August 19, 2024 4:4 9pm Chief Complaint Admit Date NEW CONCERN August 05, 2024 4:07 pm [facility] August 06, 2024 4: 00am [facility] August 19, 2024 1 2:05pm NEW CONCERN August 19, 2024 4:4 9pm [facility] September 03, 2024 5: 00am MONTHLY EXAM September 03, 2024 4:52 pm LABWORK September 04, 2024 5:00 am [facility] October 08, 2024 5:00 am Chief Complaint Admit Date NEW CONCERN August 05, 2024 4:07 pm [facility] August 06, 2024 4: 00am [facility] August 19, 2024 1 2:05pm NEW CONCERN August 19, 2024 4:4 9pm [facility] September 03, 2024 5: 00am MONTHLY EXAM September 03, 2024 4:52 pm LABWORK September 04, 2024 5:00 am [facility] October 08, 2024 5:00 am [facility] October 11, 2024 12:3 0pm Additional Source Comments Addendum Note - Willard Epperson MD - 01/23/2018 11:17 AM EDTQuick Note - Elif Augustin, TECHNOLOGIST - 10/18/2019 7:15 AM EDT Miscellaneous Notes (unrecog nized section and content) Addended by: WILLARD EPPERSON on: 01/23/2018 11:17 AM Modules accepted: Orders in this encounter This technologist ([id number]) and ([id number]) wore surgical masks/gloves during MRI exam. Patient wore surgical mask. documented in this encounter Reason for Visit (unrecogniz ed section and content) Reason Comments Multiple Sclerosis [facility] Specialty Diagnoses / Procedures Referred By Contac t Referred To Contact Infusion Therapy Diagnoses Multiple sclerosis, primary progressive (HCC) Procedures AK INJECTION, OCRELIZUMAB, 1 MG Willard Epperson MD [address] [place] [address] Formerly [facility] Ms Infusion [address] [place] [address] Referral ID Status Reason Start Date Expiration Date V isits Requested Visits Authorized [id number] Pending Review 03/31/2021 05/30/2021 1 1 Status Reason Specialty Diagnoses / Procedures Referre d By Contact Referred To Contact Closed Radiology Diagnoses Multiple sclerosis (HCC) Procedures MR Brain With And Without Contrast Willard Epperson MD [address] [place] [address] Reason Comments Multiple Sclerosis 6 month [facility] Status Reason Specialty Diagnoses / Procedures Referred By Contact Referred To Contact Closed Infusion Therapy Diagnoses Multiple sclerosis Procedures AK INJECTION, OCRELIZUMAB, 1 MG Willard Epperson MD [address] [place] [address] Formerly [facility] Infusion [address] [place] [address] Reason Comments Multiple Sclerosis Status Reason Specialty Diagnoses / Procedures Referred By Contact Referred To Contact Closed Infusion Therapy Diagnoses Multiple sclerosis, primary progressive (HCC) Procedures AK INJECTION, OCRELIZUMAB, 1 MG Willard Epperson MD [address] [facility] [address] [place] [address] Formerly [facility] Infusion [address] [place] [address] Status Reason Specialty Diagnoses / Procedures Referre d By Contact Referred To Contact Closed Radiology Diagnoses Multiple sclerosis (HCC) Procedures MR Brain Without Contrast Willard Epperson MD [address] [place] [address] Status Reason Specialty Diagnoses / Procedures Referred By Contact Referred To Contact Authorized Infusion Therapy Diagnoses Multiple sclerosis [facility] 6 months Procedures AK INJECTION, OCRELIZUMAB, 1 MG CHEMO Willard Epperson MD [address] [facility] [id number] Formerly [facility] Ms Infusion [address] [place] [address] Status Reason Specialty Diagnoses / Procedures Referred By Contact Referred To Contact Canceled Specialty Services Required/[facility] Services Diagnoses Multiple sclerosis, primary progressive (HCC) Willard Epperson MD [address] [place] [address] [place] [address] Status Reason Specialty Diagnoses / Procedures Referred By Contact Referred To Contact Authorized Infusion Therapy Diagnoses Multiple sclerosis, primary progressive (HCC) Procedures AK INJECTION, OCRELIZUMAB, 1 MG Willard Epperson MD [address] [place] [address] Formerly [facility] Infusion [address] [facility] [place] [address] Reason Comments Multiple Sclerosis [facility] 6mo, 2hr Status Reason Specialty Diagnoses / Procedures Referred By Contact Referred To Contact Closed Infusion Therapy Diagnoses Multiple sclerosis [facility] 6 months Procedures AK INJECTION, OCRELIZUMAB, 1 MG CHEMO Willard Epperson MD [address] [facility] [id number] Formerly [facility] Infusion [address] [place] [address] Reason Onset Date Comments Medication Refill 01/08/2021 Reason Comments Multiple Sclerosis Care Teams (unrecognized sec tion and content) Policy Advisor Relationship Specialty Start Date End Date Joan Hughes MD [address] [place] [id number] PCP - General Family Medicine 09/28/18 Policy Advisor Relationship Specialty Start Date End Date Joan Hughes MD [address] [place] [id number] PCP - General Family Medicine 09/28/18 Policy Advisor Relationship Specialty Start Date End Date Joan Hughes MD [address] [place] [address] [place] [phone] PCP - General Family Medicine 09/28/18 Policy Advisor Relationship Specialty Start Date End Date Joan Hughes MD [address] [place] [address] [place] [phone] PCP - General Family Medicine 09/28/18 Policy Advisor Relationship Specialty Start Date End Date Joan Hughes MD [address] [place] [address] PCP - General Family Practice 05/11/16 Team Status: Active Member Role Status Dates Dr. Joan Hughes MD Family Provider Active Dr. Joan Hughes MD Primary Care Provider Active Team Status: Inactive Member Role Status Dates Dr. Joan Hughes MD Primary Care Provider Active Britney Worthington NP, NP-C Attending Provider Active Team Status: Inactive Member [...] Active Asad Jamison MD Attending Provider Active Policy Advisor Relationship Specialty Start Date End Date Joan Hughes MD [address] [facility] [address] [place] [address] PCP - General Family Medicine 09/28/18 Team [...] MD Primary Care Provider Active Britney CULVER NP-C Attending Provider Active Team Status: Inactive Member Role Status Dates Dr. Joan Hughes MD Primary Care Provider Active Breanne CULVER MD Attending Provider, Referring Provider Active Team Status: Inactive Member Role Status Dates Dr. Joan Hughes MD Primary Care Provider Active Britney CULVER NP-C Attending Provider Active Team Status: Inactive Member Role Status Dates Dr. Joan Hughes MD Primary Care Provider Active Aren ESPINOZA PA Attending Provider Active Team Status: Inactive Member Role Status Dates Dr. Joan Hughes MD Primary Care Provider Active Poornima Romeo NP-C Attending Provider Active Team Status: Inactive Member Role Status Dates Dr. Joan Hughes MD Primary Care Provider Active Start: June 07, 2024 End: June 07, 2024 Britney Worthington NP ANIMAL ANATOMIST-C Attending Provider Active Start: June 07, 2024 [...] 2024 End: June 18, 2024 Britney Worthington NP ANIMAL ANATOMIST-C Attending Provider Active Start: June 18, 2024 [...] End: August 05, 2024 Britney Worthington NP ANIMAL ANATOMIST-C Attending Provider Active Start: August 05, 2024 [...] End: August 19, 2024 Britney Worthington NP ANIMAL ANATOMIST-C Attending Provider Active Start: August 19, 2024 End: August 19, 2024 Team Status: Inactive Member Role Status Dates Dr. Joan Hughes MD Primary Care Provider Active Start: September 03, 2024 End: September 03, 2024 Breanne CULVER MD Attending Provider Active Start: September 03, 2024 End: September 03, 2024 Team Status: Inactive Member Role Status Dates Dr. Joan Hughes MD Primary Care Provider Active Start: September 03, 2024 End: September 03, 2024 Dr. Breanne Ruiz MD Attending Provider Active Start: September 03, 2024 End: September 03, 2024 Team Status: Inactive Member Role Status Dates Dr. Joan Hughes MD Primary Care Provider Active Start: September 04, 2024 End: September 04, 2024 Breanne CULVER MD Attending Provider Active Start: September 04, 2024 End: September 04, 2024 Team Status: Inactive Member Role Status Dates Dr. Joan Hughes MD Primary Care Provider Active Start: October 08, 2024 End: October 08, 2024 Breanne CULVER MD Attending Provider Active Start: October 08, 2024 End: October 08, 2024 Team Status: Active Member Role Status Dates Dr. Joan Hughes MD Primary Care Provider Active Start: October 11, 2024 FRANCIS Ellison Attending Provider Active Start: October 11, 2024 Team Status: Active Member Role Status Dates Dr. Joan Hughes MD Primary Care Provider Active Start: November 05, 2024 FRANCIS Ellison Attending Provider Active Start: November 05, 2024 Team Status: Active Member Role Status Dates Dr. Joan Hughes MD Primary Care Provider Active Start: November 07, 2024 Breanne CULVER MD Attending Provider Active Start: November 07, 2024 Team Status: Inactive Member Role Status Dates Dr. Joan Hughes MD Primary Care Provider Active Start: October 11, 2024 End: October 11, 2024 FRANCIS Ellison Attending Provider Active Start: October 11, 2024 End: October 11, 2024 Team Status: Active Member Role Status Dates Dr. Joan Hughes MD Primary Care Provider Active Start: November 15, 2024 Breanne CULVER MD Attending Provider Active Start: November 15, 2024 INFORMATION SOURCE (unrecogn ized section and content) DATE CREATED AUTHOR 04/13/2021 [facility] DATE CREATED AUTHOR AUTHOR'S ORGANIZ ATION 01/15/2022 [facility] DATE CREATED AUTHOR AUTHOR'S ORGANIZ ATION 11/16/2022 [facility] DATE CREATED AUTHOR AUTHOR'S ORGANIZ ATION 11/27/2024 [facility] Goals (unrecognized section and content) Goals [...] or prosecute any alcohol or drug abuse patient.[facility] FOR RECORDS PERTAINING TO PATIENTS WHO ARE [...] BE BASED ON THE PRIMARY CLINICAL RECORDS. [facility]. provides no warranty or guarantee of the accuracy or completeness of information in this document.
== END ==
LOC: OLS.WHLEAS 05:00
PROVIDERS: PCP Family Medicine; Visit Provider Internal Medicine
DX: E11.9 Type 2 diabetes mellitus without complications (principal); G35 Multiple sclerosis; I10 Essential (primary) hypertension; E87.6 Hypokalemia; G89.29 Other chronic pain; J96.11 Chronic respiratory failure with hypoxia
CPT/HCPCS: 36415; 83036

== ENCOUNTER → 2024-12-13 13:38 | Outpatient (REF) | payer MEDICARE, SELFPAY ==
[2024-12-13 22:20] LABS: Mucous, Urine 0 SEEN /hpf (<or=2+)
--- OUTSIDE RECORDS SUMMARY | 2024-12-13 22:23 | XMS RPT_ITS | CCD ---
Author Organization [facility] Care Team Providers Care Medical Coding Instructor Name Role Phone No, Physician Unavailable Unavailable Unavailable Unavailable Unavailable Joan Hughes Primary Care Provider Mercedes Physician Primary Care Provider Joan Antunez Primary Care Provider Joan Hughes MD Primary Care Provider Joan Hughes MD Primary Care Provider JOAN HUGHES Primary Care Unavailable WILLARD EPPERSON Attending Unavailabl e WILLARD EPPRESON Attending Unavailabl e JOAN HUGHES Primary Care Unavailable JOAN HUGHES Primary Care Unavailable WILLARD EPPERSON Attending Unavailabl WILLARD Gonzalez Admitting Unavailabl WILLRAD Gonzalez Attending Unavailabl e JOAN HUGHES Primary Care Unavailable WILLARD EPPERSON Referring Unavailabl JOAN Paez Primary Care Unavailable WILLARD EPPERSON Admitting UnavailJOAN Gan Primary Care Unavailable WILLARD EPPERSON Admitting Unavailabl WILLARD Gonzalez Attending Unavailabl e JOAN HUGHES Primary Care Unavailable WILLARD EPPERSON Referring Unavailabl e WILLARD EPPERSON Admitting Unavailabl WILLARD Gonzalez Attending Unavailabl e JOAN HUGHES Primary Care Unavailable WILLARD EPPERSON Admitting Unavailabl e WILLARD EPPERSON Referring Unavailabl e WILLARD EPPERSON Admitting Unavailabl e YURI, JOAN Primary Care Unavailable Dr. Joan Hughes Primary Care Provider Dr. Erick Jin Emergency Provider Dr. Faheem Lamb Admit Provider Dr. Faheem Lamb Attending Provider Dr. Faheem Lamb Other Provider Dr. Maile Apodaca Attending Provider Dr. Maile Apodaca Other Provider Dr. Maile Apodaca Referring Provider Dr. Jose Cruz Wright Attending Provider Dr. Jose Cruz Wright Other Provider Dr. Alan Terry Other Provider Jaylen SMALL BUSINESS SALES REPRESENTATIVE, SMALL BUSINESS SALES REPRESENTATIVE-C Meera Other Provider Dr. Rina Diaz Other Provider Dr. Alan Terry Attending Provider Dr. Rina Diaz Attending Provider Dr. Bijan Swain Attending Provider Dr. Bijan Swain Other Provider Dr. Anil Abreu Attending Provider Dr. Alek Ray Referring Provider Elin SMALL BUSINESS SALES REPRESENTATIVE, SMALL BUSINESS SALES REPRESENTATIVE-C Britney Attending Provider Joan Sher MD Primary Care Provider JOAN HUGHES Primary Care Unavailable WILLARD EPPERSON Attending JOAN Antunez Primary Care Unavailable WILLARD EPPERSON Attending Dr. Joan Antunez Primary Care Provider [phone] Dr. Joan Hughes Primary Care Provider Elin SMALL BUSINESS SALES REPRESENTATIVE, SMALL BUSINESS SALES REPRESENTATIVE-C Britney Attending Provider Dr. Joan Sher Primary Care Provider Elin SMALL BUSINESS SALES REPRESENTATIVE, SMALL BUSINESS SALES REPRESENTATIVE-C Britney Attending Provider Dr. Joan Sher Primary Care Provider Elin SMALL BUSINESS SALES REPRESENTATIVE, SMALL BUSINESS SALES REPRESENTATIVE-C Britney Attending Provider Dr. Joan Sher Primary Care Provider Elin SMALL BUSINESS SALES REPRESENTATIVE, SMALL BUSINESS SALES REPRESENTATIVE-C Britney Attending Provider Dr. Joan Sher Primary Care Provider Elin SMALL BUSINESS SALES REPRESENTATIVE, SMALL BUSINESS SALES REPRESENTATIVE-C Britney Attending Provider Joan Sher MD Primary Care Provider Dr. Breanne Ruiz Attending Provider [phone] Dr. Joan Hughes Primary Care Provider Elin SMALL BUSINESS SALES REPRESENTATIVE, SMALL BUSINESS SALES REPRESENTATIVE-C Rbitney Attending Provider Dr. Breanne Hensley Attending Provider [phone] Dr. Joan Hughes Primary Care Provider Elin SMALL BUSINESS SALES REPRESENTATIVE, SMALL BUSINESS SALES REPRESENTATIVE-C Britney Attending Provider Dr. Joan Sher Primary Care Provider Elin SMALL BUSINESS SALES REPRESENTATIVE, SMALL BUSINESS SALES REPRESENTATIVE-C Britney Attending Provider Dr. Breanne Hensley Attending Provider [phone] Dr. Joan Hughes Primary Care Provider Elin SMALL BUSINESS SALES REPRESENTATIVE, SMALL BUSINESS SALES REPRESENTATIVE-C Britney Attending Provider Dr. Joan Sher Primary Care Provider Elin SMALL BUSINESS SALES REPRESENTATIVE, SMALL BUSINESS SALES REPRESENTATIVE-C Britney Attending Provider MD Breanne Robbins Attending Provider Dr. Joan Sher Primary Care Provider Elin SMALL BUSINESS SALES REPRESENTATIVE, SMALL BUSINESS SALES REPRESENTATIVE-C Britney Attending Provider Dr. Breanne Ruiz Attending Provider [phone] Dr. Joan Hughes Primary Care Provider Elin SMALL BUSINESS SALES REPRESENTATIVE, SMALL BUSINESS SALES REPRESENTATIVE-C Britney Attending Provider OLGA Santacruz Attending Provider [phone] FRANCIS Romeo Attending Provider [phone] Dr. Joan Hughes Primary Care Provider Elin SMALL BUSINESS SALES REPRESENTATIVE, SMALL BUSINESS SALES REPRESENTATIVE-C Britney Attending Provider Dr. Breanne Ruiz Attending Provider [phone] OLGA Santacruz Attending Provider [phone] JERRELL Romeo-C Poornima Attending Provider [phone] Dr. Joan Hughes Primary Care Provider Dr. Breanne Ruiz Attending Provider [phone] Dr. Joan Hughes Primary Care Provider Elin SMALL BUSINESS SALES REPRESENTATIVE, SMALL BUSINESS SALES REPRESENTATIVE-C Britney Attending Provider Dr. Joan Hughes MD Primary Care Provider [phone] Elin SMALL BUSINESS SALES REPRESENTATIVE-CBritney Attending Provider Breanne Ruiz MD Attending Provider Unavaildivya Ruiz MD, Breanne Referring Provider UnavailDr. Breanne Cole MD Attending Provider [phone] Dr. Joan Hughes MD Primary Care Provider Elin SMALL BUSINESS SALES REPRESENTATIVE-CBritney Attending Provider Breanne Ruiz MD Attending Provider Unavaila keara Ruiz MD, Efadalbertoongchetan Referring Provider Unavaildivya Ruiz MD, Dr. Raymundo Attending Provider [phone] Elin SMALL BUSINESS SALES REPRESENTATIVE-CBritney Attending Provider [phone] Oleghe OLS, Efewongbe Attending UnavailJoan Gan Primary Care Unavailable Oleghe OLS, Efewongbe Attending Unavailabl e Joan Hughes Primary Care Unavailable Oleghe OLS, Efewongbe Attending Unavailabl e Joan Hughes Primary Care Unavailable Oleghe OLS, Efewongbe Attending Unavailabl e Joan Hughes Primary Care Unavailable Oleghe OLS, Efewongbe Attending Unavailabl e Joan Hughes Primary Care Unavailable Oleghe OLS, Efewongbe Attending Unavailabl e Joan Hughes Primary Care Unavailable Oleghe OLS, Efewongbe Attending UnavailJoan Gan Primary Care Unavailable Oleghe OLS, Efewongbe Attending Unavailabl Joan Paez Primary Care Unavailable Oleghe OLS, Efewongbe Attending [...] e [place], Joan Primary Care Unavailable [place] SMALL BUSINESS SALES REPRESENTATIVE, Britney Attending Unavailable [place], Joan Primary Care Unavailable [place], Joan Primary Care Unavailable [place] SMALL BUSINESS SALES REPRESENTATIVE, Britney Attending Unavailable [place], Joan Primary Care Unavailable [place] SMALL BUSINESS SALES REPRESENTATIVE, Britney Attending Unavailable Oleghe OLS, Efewongbe Referring Unavailabl e Oleghe OLS, Efewongbe Attending Unavailabl e [place], Joan Primary Care Unavailable Oleghe OLS, Efewongbe Attending Unavailabl e [place], Joan Primary Care Unavailable Oleghe OLS, Efewongbe Referring Unavailabl e Oleghe OLS, Efewongbe Attending Unavailabl e [place], Joan Primary Care Unavailable [place], Joan Primary Care Unavailable Poornima Romeo Attending Unavailable Oleghe OLS, Efewongbe Attending Unavailabl e [place], Joan Primary Care Unavailable [place], Joan Primary Care Unavailable Oleghe, Efewongbe Attending Unavailable [place], Joan Primary Care Unavailable [place] SMALL BUSINESS SALES REPRESENTATIVE, Britney Attending Unavailable [place], Joan Primary Care Unavailable [place] SMALL BUSINESS SALES REPRESENTATIVE, Britney Attending Unavailable [place] SMALL BUSINESS SALES REPRESENTATIVE, Britney Attending Unavailable [place], Joan Primary Care Unavailable [place] SMALL BUSINESS SALES REPRESENTATIVE, Britney Attending Unavailable [place], Joan Primary Care Unavailable Oleghe, Efewongbe Attending Unavailable [place], Joan Primary Care Unavailable [place], Joan Primary Care Unavailable Oleghe, Efewongbe Attending Unavailable [place], Joan Primary Care Unavailable Oleghe, Efewongbe Attending Unavailable [place], Joan Primary Care Unavailable [place] SMALL BUSINESS SALES REPRESENTATIVE, Britney Attending Unavailable Joan Hughes Primary Care Unavailable Britney Worthington NP Attending Unavailable Breanne Ruiz Attending Unavailable Joan Hughes Primary Care Unavailable Breanne Fishman [facility] Primary Care Unavailable Allergies Allergy Classification Reported Allergen(s) Allergy Type Date of Onset Reaction(s) Facility Aspirin / Caffeine / Orphenadrine (11 sources) Aspirin / Caffeine / Orphenadrine Drug Allergy 5 [facility] NSAIDs (20 sources) Ibuprofen Drug Allergy 5 Swelling, Hives, Itching [facility] Penicillins (antibiotic) (11 sources) Penicillins Drug Allergy 5 [facility] Sulfonamides (antibiotic) (11 sources) Sulfonamides (Antibiotic) Drug Allergy 6 [facility] Tetracyclines (antibiotic) (11 sources) Tetracycline Drug Allergy 5 [facility] (20 sources) aspirin / caffeine / orphenadrine; Translations: [ORPHENADRINE- A-CAFFEINE] Propensity to adverse reactions to drug 5 [facility] Work Phone: (20 sources) ibuprofen; Translations: [IBUPROFEN] Propensity to adverse reactions to drug 8 Swelling [facility] Work Phone: (20 sources) naproxen; Translations: [NAPROXEN SODIUM] Propensity to adverse reactions to drug 5 Hives, Itching, Swelling [facility] Work Phone: (20 sources) Penicillins; Translations: [PENICILLINS] Propensity to adverse reactions to drug 5 [facility] Work Phone: (20 sources) Sulfonamides (Antibiotic); Translations: [SULFA (SULFONAMIDE ANTIBIOTICS)] Propensity to adverse reactions to drug 6 [facility] Work Phone: (20 sources) tetracycline; Translations: [TETRACYCLINE] Propensity to adverse reactions to drug 5 [facility] Work Phone: (6 sources) Penicillins Propensity to adverse reactions to drug 5 [facility] (8 sources) Sulfonamides (Antibiotic) Propensity to adverse reactions to drug 6 [facility] (20 sources) Naproxen Drug Allergy 1 Rash [facility] (20 sources) tiZANidine Drug Allergy 9 Other: See Comments [facility] (2 sources) Penicillins Propensity to adverse reactions [address] [facility] (1 source) Naproxen Drug Allergy 1 [facility] (1 source) Penicillins Drug allergy (disorder) 1 [facility] (1 source) Sulfonamides (Antibiotic) Drug allergy (disorder) 1 [facility] (1 source) tiZANidine Drug Allergy 1 [facility] Medications Current Medications Medication Drug Class(es) Dates Sig (Normalized) Sig (Original) Afluria Quad [id number] (Pf) 60 McG/0.5 Ml Intramuscular Syringe (9 [...] Comment on above: Take 1 tablet by [facility] once daily. cholecalciferol 0.25 mg oral capsule [...] Start: 07-03-2018 take 2 tablets by mo [facility] every four hours as needed for pain [...] fever 100.4 F or greater, headaches, Starting [facility] 04/13/17 at 1127 Given 04/13/2017 11:36 EST 650 mg Start: 04-09-2009 acetaminophen( TYLENOL 325 MG TAB) Take two(2) tablets every four(4) to six(6) hours as needed for pain. 0 04/09/2009 Active take 1 tablet by [facility] every six hours as needed [...] Active Start: 01-23-2018 take 1 tablet by niall twice daily dalfampridine 10 mg Tb12 Take [...] solid 25 mg 25 mg, Oral, Once, [facility] 05/04/17 at 0900, For 1 dose, [...] on above: Take 1 tablet by niall every 6 hours as needed (dizziness). methylPREDNISolone [...] Problem Classification Problem Date Documented Date Episodic/Chronic Abdominal pain (1 source) Generalized abdominal pain; Translations: [Generalized abdominal pain] Onset: 12-09-2024 Episodic Conditions associated with dizziness or vertigo [...] Recurrent falls ; Translations: [Falls frequently] Other nervous system disorders (1 source) Disorder [...] Acute cystitis; Translations: [Acute cystitis without hematuria] Onset: 12-09-2024 Episodic Viral infection (20 sources) Disease caused by 2019-nCoV; Translations: [COVID-19] Episodic Past or Other Problems Problem Classification Problem Date Documented Da te Episodic/Chronic Acute and unspecified renal failure (2 sources) Acute kidney failure, unspecified; Translations: [Acute kidney failure, unspecified] Onset: 02-26-2024 Episodic Anxiety disorders (20 sources) Anxiety; Translations: [Anxiety [...] allied syndromes] Onset: 03-24-2005 03-24-2005 Episodic Other female genital disorders (1 source) Other specified noninflammatory disorders of vagina; Translations: [Other specified noninflammatory disorders of vagina] Onset: 09-05-2024 Episodic Other nervous system disorders (20 sources) [...] on 11-15-2024 Bilirubin Ql (U) Negative Negative [facility] Ketones Test strip Ql (U)Ord ered By: Breanne Ruiz on 11-15-2024 Ketones Ql (U) Negative Negative [facility] Nitrite Test strip Ql (U)Ord ered By: Breanne Ruiz on 11-15-2024 Nitrite Ql (U) Negative Negative [facility] Protein Test strip Ql (U)Ord ered By: Breanne Ruiz on 11-15-2024 Protein Ql (U) 500 mg/dl High Negative [facility] Urine clarityOrdered By: Prashant Ruiz on 11-15-2024 Clarity (U) Turbid Clear [facility] Urine color determinationOrd ered By: Breanne Ruiz on 11-15-2024 Color (U) Yellow Yellow [facility] Urine glucose detectionOrder ed By: Breanne Ruiz on 11-15-2024 Glucose Ql (U) Normal mg/dl Normal [facility] Urine leukocyte esterase det ection by dipstickOrdered By: Breanne Ruiz on 11-15-2024 Leukocyte esterase Test strip Ql (U) 500 /ul High Negative [facility] Urine pHOrdered By: Bhupendra Ruiz on 11-15-2024 pH (U) 6.0 [pH] 5.0 - 8.0 [facility] Urine specific gravity measu rementOrdered By: Breanne Ruiz on 11-15-2024 Specific gravity (U) [Rel density] 1.020 1.002-1.030 [facility] Urine urobilinogen measureme ntOrdered By: Breanne Ruiz on 11-15-2024 Urobilinogen Ql (U) Normal mg/dl Normal [facility] Anion gap in Serum or Plasma Ordered By: Breanne Ruiz on 11-07-2024 Anion gap [Moles/Vol] 14 mmol/L 5-15 [facility] BUN/creatinine ratioOrdered By: Breanne Ruiz on 11-07-2024 Urea nitrogen/Creatinine [Mass ratio] 31.2 mg/mg High 10-20 [facility] Carbon dioxide, total [Moles /volume] in Central venous bloodOrdered By: Breanne Ruiz on 11-07-2024 CO2 [Moles/Vol] 20.8 mmol/L Low 21.0-32.0 [facility] Chloride assayOrdered By: Elio Ruiz on 11-07-2024 Chloride [Moles/Vol] 102 mmol/L 98-108 [facility] Glomerular filtration rate ( GFR) estimation/1.73 sq m using serum, plasma, or whole bOrdered By: Breanne Ruiz on 11-07-2024 GFR/1.73 sq M.predicted among non-blacks MDRD (S/P/Bld) [Vol rate/Area] 41 mL/min/{1.73_m2} Low >60 [facility] Comment on above: mL/min/1.73m2 CKD-EP I Creatinine Equation (2020) Potassium measurement (mass/ volume)Ordered By: Breanne Ruiz on 11-07-2024 Potassium (Unsp spec) [Mass/Vol] 3.9 mmol/L 3.3-5.1 [facility] Serum creatinine measurement (mass/volume)Ordered By: Breanne Ruiz on 11-07-2024 Creatinine [Mass/Vol] 1.41 mg/dL High 0.70-1.20 [facility] Serum glucose measurement (m ass/volume)Ordered By: Breanne Ruiz on 11-07-2024 Glucose [Mass/Vol] 151 mg/dL High 70-99 [facility] Serum or plasma calcium jj urement (mass/volume)Ordered By: Breanne Ruiz on 11-07-2024 Calcium [Mass/Vol] 9.8 mg/dL 7.6-11.0 [facility] Serum or plasma urea nitroge n measurement (mass/volume)Ordered By: Breanne Ruiz on 11-07-2024 Urea nitrogen [Mass/Vol] 44 mg/dL High 4-19 [facility] Sodium levelOrdered By: Abbie Ruiz on 11-07-2024 Sodium [Moles/Vol] 138 mmol/L 133-145 [facility] Absolute lymphocyte countOrd ered By: Britney Worthington on 11-05-2024 Lymphocytes Auto (Unsp spec) [#/Vol] 0.88 10*3/uL 0.83-4.51 [facility] Absolute neutrophil countOrd ered By: Britney Worthington on 11-05-2024 Neutrophils (Bld) [#/Vol] 8.0 10*3/uL High 2.0-7.7 [facility] Anion gap in Serum or Plasma Ordered By: Britney Worthington on 11-05-2024 Anion gap [Moles/Vol] 15 mmol/L 5-15 [facility] Automated lymphocyte count a s percentage of total leukocytesOrdered By: Britney Worthington on 11-05-2024 Lymphocytes/100 WBC Auto (Unsp spec) 8.1 % Low 19-41 [facility] BUN/creatinine ratioOrdered By: Britney Worthington on 11-05-2024 Urea nitrogen/Creatinine [Mass ratio] 29.5 mg/mg High 10-20 [facility] Basophil percentageOrdered B y: Britney Worthington on 11-05-2024 Basophils/100 WBC (Bld) 1.1 % High 0-1 [facility] Bilirubin, totalOrdered By: Britney Worthington on 11-05-2024 Bilirubin [Mass/Vol] 0.21 mg/dL 0.00-1.30 [facility] Carbon dioxide, total [Moles /volume] in Central venous bloodOrdered By: Britney Worthington on 11-05-2024 CO2 [Moles/Vol] 18.5 mmol/L Low 21.0-32.0 [facility] Chloride assayOrdered By: Lawrence Worthington on 11-05-2024 Chloride [Moles/Vol] 103 mmol/L 98-108 [facility] Eosinophil percentageOrdered By: Britney Worthington on 11-05-2024 Eosinophils/100 WBC (Bld) 2.7 % 0-5 [facility] Erythrocyte distribution wid th ratioOrdered By: Britney Worthington on 11-05-2024 Erythrocyte distribution width (RBC) [Ratio] 16.5 % High 11.6-14.6 [facility] Erythrocyte distribution wid th standard deviationOrdered By: Britney Worthington on 11-05-2024 Erythrocyte distribution width (RBC) [Ratio] 49.0 fl High 35.1-43.9 [facility] Glomerular filtration rate ( GFR) estimation/1.73 sq m using serum, plasma, or whole bOrdered By: Britney Worthington on 11-05-2024 GFR/1.73 sq M.predicted among non-blacks MDRD (S/P/Bld) [Vol rate/Area] 46 mL/min/{1.73_m2} Low >60 [facility] Comment on above: mL/min/1.73m2 CKD-EP I Creatinine Equation (2020) Hematocrit Auto (Bld) [Volum e fraction]Ordered By: Britney Worthington on 11-05-2024 Hematocrit (Bld) [Volume fraction] 38.8 % 37-47 [facility] Hemoglobin measurementOrdere d By: Britney Worthington on 11-05-2024 Hemoglobin (Bld) [Mass/Vol] 11.7 g/dL Low 12.0-15.0 [facility] Immature granulocytes/100 WB C Auto (Bld)Ordered By: Britney Worthington on 11-05-2024 Immature granulocytes/100 WBC (Bld) 2.100 % High 0.0-0.9 [facility] Comment on above: IG% - Immature Granu locytes (promyelocytes, myelocytes and metamyelocytes) > 1% indicates that a LEFT SHIFT is Present. Laboratory - Chemistry and C hemistry - challengeOrdered By: Britney Worthington on 11-05-2024 AST [Catalytic activity/Vol] 23 U/L <32 [facility] MCV (mean corpuscular volume ) determinationOrdered By: Britney Worthington on 11-05-2024 MCV (RBC) [Entitic vol] 81.2 fL 81-99 [facility] Mean corpuscular hemoglobin (MCH) determinationOrdered By: Britney Worthington on 11-05-2024 MCH (RBC) [Entitic mass] 24.5 pg Low 27.0-32.0 [facility] Mean corpuscular hemoglobin concentration (MCHC) determinationOrdered By: Britney Worthington on 11-05-2024 MCHC (RBC) [Mass/Vol] 30.2 g/dL Low 32-36 [facility] Mean platelet volume determi nationOrdered By: Britney Worthington on 11-05-2024 Platelet mean volume (Bld) [Entitic vol] 9.1 fL 6.2-12.0 [facility] Monocyte percentageOrdered B y: Britney Worthington on 11-05-2024 Monocytes/100 WBC (Bld) 12.5 % High 0-10 [facility] Neutrophil percentageOrdered By: Britney Worthington on 11-05-2024 Neutrophils/100 WBC (Bld) 73.5 % High 47-70 [facility] Nucleated red blood cell per centageOrdered By: Britney Worthington on 11-05-2024 Nucleated RBC/100 WBC (Bld) [Ratio] 0 % 0-5 [facility] Platelet countOrdered By: Lawrence Worthington on 11-05-2024 Platelets (Bld) [#/Vol] 488 10*3/uL High 150-450 [facility] Potassium measurement (mass/ volume)Ordered By: Britney Worthington on 11-05-2024 Potassium (Unsp spec) [Mass/Vol] 4.3 mmol/L 3.3-5.1 [facility] RBC Auto (Bld) [#/Vol]Ordere d By: Britney Worthington on 11-05-2024 RBC (Bld) [#/Vol] 4.78 10*6/uL 4.2-5.4 [facility] Serum creatinine measurement (mass/volume)Ordered By: Britney Worthington on 11-05-2024 Creatinine [Mass/Vol] 1.28 mg/dL High 0.70-1.20 [facility] Serum globulin measurementOr dered By: Britney Worthington on 11-05-2024 Globulin (S) [Mass/Vol] 3.8 g/dL 2.2-4.2 [facility] Serum glucose measurement (m ass/volume)Ordered By: Britney Worthington on 11-05-2024 Glucose [Mass/Vol] 189 mg/dL High 70-99 [facility] Serum or plasma alanine juárez otransferase (ALT) measurementOrdered By: Britney Worthington on 11-05-2024 ALT [Catalytic activity/Vol] 45 U/L High <35 [facility] Serum or plasma albumin jj urement (mass/volume)Ordered By: Britney Worthington on 11-05-2024 Albumin [Mass/Vol] 3.3 g/dL Low 3.4-4.8 [facility] Serum or plasma albumin/glob ulin mass ratioOrdered By: Britney Worthington on 11-05-2024 Albumin/Globulin [Mass ratio] 0.9 {ratio} 0.9-2.4 [facility] Serum or plasma alkaline sofi sphatase measurementOrdered By: Britney Worthington on 11-05-2024 ALP [Catalytic activity/Vol] 95 U/L 35-104 [facility] Serum or plasma calcium jj urement (mass/volume)Ordered By: Britney Worthington on 11-05-2024 Calcium [Mass/Vol] 9.8 mg/dL 7.6-11.0 [facility] Serum or plasma urea nitroge n measurement (mass/volume)Ordered By: Britney Worthington on 11-05-2024 Urea nitrogen [Mass/Vol] 38 mg/dL High 4-19 [facility] Sodium levelOrdered By: Nancy Worthington on 11-05-2024 Sodium [Moles/Vol] 136 mmol/L 133-145 [facility] Total proteinOrdered By: Phillip Worthington on 11-05-2024 Protein [Mass/Vol] 7.1 g/dL 5.9-8.4 [facility] White blood cell (WBC) count Ordered By: Britney Worthington on 11-05-2024 WBC (Bld) [#/Vol] 10.9 10*3/uL 4.4-11.0 [facility] Gram stainOrdered By: Ana Lilia Worthington on 10-11-2024 Microscopic observation Gram stain Nom (Unsp spec) [facility] Calculated very low density lipoprotein (VLDL) cholesterol measurementOrdered By: Breanne Ruiz on 10-08-2024 Calculated very low density lipoprotein (VLDL) cholesterol measurement 52 mg/dL High 5-40 [facility] LDL calc ser/plasOrdered By: Breanne Ruiz on 10-08-2024 Cholesterol in LDL [Mass/Vol] 44 mg/dL [facility] Comment on above: Adlphjmnfx=353-836 m g/dL & Higher Bfmd=008 mg/dL or greater Screening total cholesterol/ high density lipoprotein (HDL) cholesterol ratioOrdered By: Breanne Ruiz on 10-08-2024 Cholesterol.total/Cholest dipak in HDL [Mass ratio] 4.16 {ratio} [facility] Serum or plasma cholesterol in HDL measurement (mass/volume)Ordered By: Breanne Ruiz on 10-08-2024 Cholesterol in HDL [Mass/Vol] 30 mg/dL Low >40 [facility] Comment on above: National Cholesterol Education Program (NCEP) guidelines:<40 mg/dL: Low HDL-cholesterol (major risk factor for CHD)>= 60 mg/dL: High HDL-cholesterol (negative risk factor for CHD)HDL-cholesterol is affected by a number of factors, e.g. smoking, exercise, hormones, sex and age. Serum or plasma cholesterol measurement (mass/volume)Ordered By: Breanne Ruiz on 10-08-2024 Cholesterol [Mass/Vol] 126 mg/dL <201 [facility] Comment on above: Cholesterol level, D esirable <200 mg/dLBorderline high cholesterol 200-239 mg/dLHigh cholesterol >=240 mg/dLRecommendations of the NCEP Adult Treatment Panel for the following risk-cutoff thresholds for the [place] population. Triglycerides measurementOrd ered By: Breanne Ruiz on 10-08-2024 Triglyceride [Mass/Vol] 261 mg/dL High <199 [facility] Comment on above: The drugs N-Acetylcy steine and Metamizole may falsely depress this assay. Normal range: <150 mg/dLBorderline High: 150-199 mg/dLHigh: 200-499 mg/dLVery High: >500 mg/dL Anion gap in Serum or Plasma Ordered By: Breanne Ruiz on 09-04-2024 Anion gap [Moles/Vol] 15 mmol/L 5-15 [facility] BUN/creatinine ratioOrdered By: Breanne Ruiz on 09-04-2024 Urea nitrogen/Creatinine [Mass ratio] 30.0 mg/mg High 10-20 [facility] Carbon dioxide, total [Moles /volume] in Central venous bloodOrdered By: Breanne Ruiz on 09-04-2024 CO2 [Moles/Vol] 20.5 mmol/L Low 21.0-32.0 [facility] Chloride assayOrdered By: Elio Ruiz on 09-04-2024 Chloride [Moles/Vol] 102 mmol/L 98-108 [facility] GFR/1.73 sq M.predicted cinda g non-blacks MDRD (S/P/Bld) [Vol rate/Area]Ordered By: Breanne Ruiz on 09-04-2024 Estimated GFR (MDRD) Non-Af Amer 68 >60 [facility] Comment on above: mL/min/1.73m2 CKD-EP I Creatinine Equation (2020) Glomerular filtration rate ( GFR) estimation/1.73 sq m using serum, plasma, or whole bOrdered By: Breanne Ruiz on 09-04-2024 GFR/1.73 sq M.predicted among non-blacks MDRD (S/P/Bld) [Vol rate/Area] 68 mL/min/{1.73_m2} >60 [facility] Comment on above: mL/min/1.73m2 CKD-EP I Creatinine Equation (2020) Potassium (Unsp spec) [Mass/ Vol]Ordered By: Breanne Ruiz on 09-04-2024 Potassium [Moles/Vol] 4.1 mmol/L 3.3-5.1 [facility] Comment on above: Hemolysis present, R esults could be affected. Potassium measurement (mass/ volume)Ordered By: Breanne Ruiz on 09-04-2024 Potassium (Unsp spec) [Mass/Vol] 4.1 mmol/L 3.3-5.1 [facility] Comment on above: Hemolysis present, R esults could be affected. Serum creatinine measurement (mass/volume)Ordered By: Breanne Ruiz on 09-04-2024 Creatinine [Mass/Vol] 0.93 mg/dL 0.70-1.20 [facility] Serum glucose measurement (m ass/volume)Ordered By: Breanne Ruiz on 09-04-2024 Glucose [Mass/Vol] 137 mg/dL High 70-99 [facility] Serum or plasma calcium jj urement (mass/volume)Ordered By: Breanne Ruiz on 09-04-2024 Calcium [Mass/Vol] 10.3 mg/dL 7.6-11.0 [facility] Serum or plasma urea nitroge n measurement (mass/volume)Ordered By: Breanne Ruiz on 09-04-2024 Urea nitrogen [Mass/Vol] 28 mg/dL High 4-19 [facility] Sodium levelOrdered By: Abbie Ruiz on 09-04-2024 Sodium [Moles/Vol] 137 mmol/L 133-145 [facility] Hemoglobin A1c percentageOrd ered By: Breanne Ruiz on 09-03-2024 HbA1c (Bld) [Mass fraction] 7.9 % >5.7 [facility] Genital cultureOrdered By: Beverly borischetan Ruiz on 08-19-2024 Genital Culture Staphylococcus aureus Abnormal [facility] Gram stainOrdered By: Abbiegordy camarillo Sara on 08-19-2024 Microscopic observation Gram stain Nom (Unsp spec) [facility] Absolute lymphocyte countOrd ered By: Breanne Ruiz on 08-06-2024 Lymphocytes Auto (Unsp spec) [#/Vol] 1.08 10*3/uL 0.83-4.51 [facility] Absolute neutrophil countOrd ered By: Breanne Ruiz on 08-06-2024 Neutrophils (Bld) [#/Vol] 7.0 10*3/uL 2.0-7.7 [facility] Anion gap in Serum or Plasma Ordered By: Breanne Ruiz on 08-06-2024 Anion gap [Moles/Vol] 13 mmol/L 5-15 [facility] Automated lymphocyte count a s percentage of total leukocytesOrdered By: Breanne Ruiz on 08-06-2024 Lymphocytes/100 WBC Auto (Unsp spec) 11.0 % Low 19-41 [facility] BUN/creatinine ratioOrdered By: Breanne Ruiz on 08-06-2024 Urea nitrogen/Creatinine [Mass ratio] 27.6 mg/mg High 10-20 [facility] Basophil percentageOrdered B y: Breanne Ruiz on 08-06-2024 Basophils/100 WBC (Bld) 0.7 % 0-1 [facility] Bilirubin, totalOrdered By: Breanne Ruiz on 08-06-2024 Bilirubin [Mass/Vol] 0.21 mg/dL 0.00-1.30 [facility] Carbon dioxide, total [Moles /volume] in Central venous bloodOrdered By: Breanne Ruiz on 08-06-2024 CO2 [Moles/Vol] 22.7 mmol/L 21.0-32.0 [facility] Chloride assayOrdered By: Elio Ruiz on 08-06-2024 Chloride [Moles/Vol] 101 mmol/L 98-108 [facility] Eosinophil percentageOrdered By: Breanne Ruiz on 08-06-2024 Eosinophils/100 WBC (Bld) 3.8 % 0-5 [facility] Erythrocyte distribution wid th (RBC) [Ratio]Ordered By: Breanne Ruiz on 08-06-2024 Erythrocyte distribution width (RBC) [Entitic vol] 46.3 fL High 35.1-43.9 [facility] Erythrocyte distribution wid th ratioOrdered By: Breanne Ruiz on 08-06-2024 Erythrocyte distribution width (RBC) [Ratio] 15.6 % High 11.6-14.6 [facility] Erythrocyte distribution wid th standard deviationOrdered By: Breanne Ruiz on 08-06-2024 Erythrocyte distribution width (RBC) [Ratio] 46.3 fl High 35.1-43.9 [facility] GFR/1.73 sq M.predicted cinda g non-blacks MDRD (S/P/Bld) [Vol rate/Area]Ordered By: Breanne Ruiz on 08-06-2024 Estimated GFR (MDRD) Non-Af Amer 66 >60 [facility] Comment on above: mL/min/1.73m2 CKD-EP I Creatinine Equation (2020) Glomerular filtration rate ( GFR) estimation/1.73 sq m using serum, plasma, or whole bOrdered By: Breanne Ruiz on 08-06-2024 GFR/1.73 sq M.predicted among non-blacks MDRD (S/P/Bld) [Vol rate/Area] 66 mL/min/{1.73_m2} >60 [facility] Comment on above: mL/min/1.73m2 CKD-EP I Creatinine Equation (2020) Hematocrit Auto (Bld) [Volum e fraction]Ordered By: Breanne Ruiz on 08-06-2024 Hematocrit (Bld) [Volume fraction] 41.6 % 37-47 [facility] Hemoglobin measurementOrdere d By: Breanne Ruiz on 08-06-2024 Hemoglobin (Bld) [Mass/Vol] 12.5 g/dL 12.0-15.0 [facility] Immature granulocytes/100 WB C Auto (Bld)Ordered By: Breanne Ruiz on 08-06-2024 Immature granulocytes/100 WBC (Bld) 1.000 % High 0.0-0.9 [facility] Comment on above: IG% - Immature Granu locytes (promyelocytes, myelocytes and metamyelocytes) > 1% indicates that a LEFT SHIFT is Present. Laboratory - Chemistry and C hemistry - challengeOrdered By: adalbertoduckchetan Ruiz on 08-06-2024 AST [Catalytic activity/Vol] 16 U/L <32 [facility] Lymphocytes Auto (Unsp spec) [#/Vol]Ordered By: [facility] Kirklandbeverly on 08-06-2024 Lymphocytes (Bld) [#/Vol] 1.08 10*3/uL 0.83-4.5 1 [facility] Lymphocytes/100 WBC Auto (Un sp spec)Ordered By: vannessa Kirklandmichaelbeverly on 08-06-2024 Lymphocytes/100 WBC (Bld) 11.0 % Low 19-41 [facility] MCV (mean corpuscular volume ) determinationOrdered By: vannessa Ruiz on 08-06-2024 MCV (RBC) [Entitic vol] 80.9 fL Low 81-99 [facility] Mean corpuscular hemoglobin (MCH) determinationOrdered By: [facility] Kirklandbeverly on 08-06-2024 MCH (RBC) [Entitic mass] 24.3 pg Low 27.0-32.0 [facility] Mean corpuscular hemoglobin concentration (MCHC) determinationOrdered By: [facility] Isaelbeverly on 08-06-2024 MCHC (RBC) [Mass/Vol] 30.0 g/dL Low 32-36 [facility] Mean platelet volume determi nationOrdered By: [facility] Kirklandbeverly on 08-06-2024 Platelet mean volume (Bld) [Entitic vol] 8.8 fL 6.2-12.0 [facility] Monocyte percentageOrdered B y: Eliovannessa Ruiz on 08-06-2024 Monocytes/100 WBC (Bld) 12.5 % High 0-10 [facility] Neutrophil percentageOrdered By: [facility] Isaelbeverly on 08-06-2024 Neutrophils/100 WBC (Bld) 71.0 % High 47-70 [facility] Nucleated red blood cell per centageOrdered By: Breanne Ruiz on 08-06-2024 Nucleated RBC/100 WBC (Bld) [Ratio] 0 % 0-5 [facility] Platelet countOrdered By: Elio Ruiz on 08-06-2024 Platelets (Bld) [#/Vol] 452 10*3/uL High 150-450 [facility] Potassium (Unsp spec) [Mass/ Vol]Ordered By: Breanne Ruiz on 08-06-2024 Potassium [Moles/Vol] 3.9 mmol/L 3.3-5.1 [facility] Potassium measurement (mass/ volume)Ordered By: Breanne Ruiz on 08-06-2024 Potassium (Unsp spec) [Mass/Vol] 3.9 mmol/L 3.3-5.1 [facility] RBC Auto (Bld) [#/Vol]Ordere d By: Breanne Ruiz on 08-06-2024 RBC (Bld) [#/Vol] 5.14 10*6/uL 4.2-5.4 [facility] Serum creatinine measurement (mass/volume)Ordered By: Breanne Ruiz on 08-06-2024 Creatinine [Mass/Vol] 0.96 mg/dL 0.70-1.20 [facility] Serum globulin measurementOr dered By: Breanne Ruiz on 08-06-2024 Globulin (S) [Mass/Vol] 3.8 g/dL 2.2-4.2 [facility] Serum glucose measurement (m ass/volume)Ordered By: Breanne Ruiz on 08-06-2024 Glucose [Mass/Vol] 188 mg/dL High 70-99 [facility] Serum or plasma alanine juárez otransferase (ALT) measurementOrdered By: Breanne Ruiz on 08-06-2024 ALT [Catalytic activity/Vol] 10 U/L <35 [facility] Serum or plasma albumin jj urement (mass/volume)Ordered By: Breanne Ruiz on 08-06-2024 Albumin [Mass/Vol] 3.3 g/dL Low 3.4-4.8 [facility] Serum or plasma albumin/glob ulin mass ratioOrdered By: Breanne Ruiz on 08-06-2024 Albumin/Globulin [Mass ratio] 0.9 {ratio} 0.9-2.4 [facility] Serum or plasma alkaline sofi sphatase measurementOrdered By: Breanne Ruiz on 08-06-2024 ALP [Catalytic activity/Vol] 80 U/L 35-104 [facility] Serum or plasma calcium jj urement (mass/volume)Ordered By: Breanne Ruiz on 08-06-2024 Calcium [Mass/Vol] 10.1 mg/dL 7.6-11.0 [facility] Serum or plasma urea nitroge n measurement (mass/volume)Ordered By: Breanne Ruiz on 08-06-2024 Urea nitrogen [Mass/Vol] 26 mg/dL High 4-19 [facility] Sodium levelOrdered By: Abbie kaminskirabia Sara on 08-06-2024 Sodium [Moles/Vol] 137 mmol/L 133-145 [facility] Total proteinOrdered By: Prashantbeverly limchetan Ruiz on 08-06-2024 Protein [Mass/Vol] 7.1 g/dL 5.9-8.4 [facility] White blood cell (WBC) count Ordered By: Breanne Ruiz on 08-06-2024 WBC (Bld) [#/Vol] 9.8 10*3/uL 4.4-11.0 [facility] Bilirubin Test strip Ql (U)O rdered By: Breanne Ruiz on 08-05-2024 Bilirubin Ql (U) Negative Negative [facility] Epithelial cells.squamous LM Ql (Urine sed)Ordered By: Breanne Ruiz on 08-05-2024 Epithelial cells.squamous LM.HPF (Urine sed) [#/Area] 0 /[HPF] 5-10 [facility] Glucose Ql (U)Ordered By: Elio Ruiz on 08-05-2024 Glucose (U) [Mass/Vol] 50 mg/dL High Normal [facility] Ketones Test strip Ql (U)Ord ered By: Breanne Ruiz on 08-05-2024 Ketones Ql (U) Negative Negative [facility] Microscopic analysis of urin e for red blood cells (RBC)Ordered By: Breanne Ruiz on 08-05-2024 Microscopic analysis of urine for red blood cells (RBC) 0-5 SEEN /hpf 0-5 [facility] Urine RBC 0-5 SEEN /hpf 0-5 [facility] Mucus LM Ql (Urine sed)Order ed By: Breanne Ruiz on 08-05-2024 Mucus Ql (Urine sed) 0 SEEN /hpf [facility] Nitrite Test strip Ql (U)Ord ered By: Breanne Ruiz on 08-05-2024 Nitrite Ql (U) Negative Negative [facility] Protein Test strip Ql (U)Ord ered By: Breanne Ruiz on 08-05-2024 Protein Ql (U) 500 mg/dl High Negative [facility] Squamous epithelial cells de tection in urine sediment by light microscopyOrdered By: Breanne Ruiz on 08-05-2024 Epithelial cells.squamous LM Ql (Urine sed) 0-5 SEEN /hpf 5-10 [facility] Urine blood detectionOrdered By: Breanne Ruiz on 08-05-2024 Urine Occult Blood 250 /ul High Negative [facility] Urine clarityOrdered By: Prashant Ruiz on 08-05-2024 Clarity (U) Turbid Clear [facility] Urine color determinationOrd ered By: Breanne Ruiz on 08-05-2024 Color (U) Straw Yellow [facility] Urine cultureOrdered By: Prashant Ruiz on 08-05-2024 Bacteria identified Cx Nom (U) Alpha Hemolytic Streptococcus Abnormal [facility] Bacteria identified Cx Nom (U) Klebsiella pneumoniae sp pneum Abnormal [facility] Urine glucose detectionOrder ed By: Breanne Ruiz on 08-05-2024 Glucose Ql (U) 50 mg/dl High Normal [facility] Urine leukocyte esterase det ection by dipstickOrdered By: Breanne Ruiz on 08-05-2024 Leukocyte esterase Test strip Ql (U) 500 /ul High Negative [facility] Urine pHOrdered By: Bhupendra Ruiz on 08-05-2024 pH (U) 6.0 [pH] 5.0 - 8.0 [facility] Urine sediment bacteria coun t by microscopy (number/high power field)Ordered By: Breanne Ruiz on 08-05-2024 Bacteria LM.HPF (Urine sed) [#/Area] 3 /[HPF] None Seen [facility] Urine specific gravity measu rementOrdered By: Breanne Ruiz on 08-05-2024 Specific gravity (U) [Rel density] 1.020 1.002-1.030 [facility] Urine urobilinogen measureme ntOrdered By: Breanne Ruiz on 08-05-2024 Urobilinogen Ql (U) Normal mg/dl Normal [facility] Urobilinogen Ql (U)Ordered B y: Breanne Ruiz on 08-05-2024 Urine Urobilinogen Normal mg/dl Normal [facility] White blood cell countOrdere d By: Breanne Ruiz on 08-05-2024 Urine WBC >100 SEEN /hpf 0-5 [facility] White blood cell count >100 SEEN /hpf 0-5 [facility] High density lipoprotein (HD L) measurementOrdered By: Breanne Ruiz on 07-09-2024 Cholesterol in HDL [Mass/Vol] 38 mg/dL Low >40 [facility] Comment on above: The drugs N-Acetylcy steine and Metamizole may falsely depress this assay. Reference Range HDL <40 mg/dL Low HDL Cholesterol HDL >or= 60 mg/dL High HDL Cholesterol Low density lipoprotein (LDL ) cholesterol measurementOrdered By: Breanne Ruiz on 07-09-2024 Cholesterol in LDL [Mass/Vol] 41 mg/dL 0-130 [facility] Serum or plasma cholesterol measurement (mass/volume)Ordered By: Breanne Ruiz on 07-09-2024 Cholesterol [Mass/Vol] 143 mg/dL <200 [facility] Comment on above: <200 mg/dL Desirable 200-240 mg/dL Borderline >240 mg/dL High Risk Triglycerides measurementOrd ered By: Breanne Ruiz on 07-09-2024 Triglyceride [Mass/Vol] 321 mg/dL High <199 [facility] Comment on above: The drugs N-Acetylcy steine and Metamizole may falsely depress this assay.Serum Triglycerides Reference Interval Normal <150 mg/dL Borderline high 150 - 199 mg/dL High 200 - 499 mg/dL Very High > or = 500 mg/dL Very low density lipoprotein (VLDL) cholesterol measurementOrdered By: Breanne Ruiz on 07-09-2024 VLDL Cholesterol 64 mg/dL High 5-40 [facility] Hemoglobin A1c percentageOrd ered By: Elioadalbertolalitachetan Kirklandmichaelbeverly on 06-11-2024 HbA1c (Bld) [Mass fraction] 7.2 % High 3.8-5.6 [facility] Comment on above: Normal < 5.7 % Predi abetic 5.7 - 6.4 % Diabetic >or= 6.5 % Please note range changes. Whole blood hemoglobin A1c/t otal hemoglobin ratio (mass fraction)Ordered By: Breanne Ruiz on 09-05-2023 HbA1c (Bld) [Mass fraction] 6.7 % 3.8-5.6 [facility] Comment on above: Normal < 5.7 % Predi abetic 5.7 - 6.4 % Diabetic >or= 6.5 % Please note range changes. Basophil percentageOrdered B y: Abbielalitachetan Ruiz on 08-10-2023 Potassium [Moles/Vol] 4.0 mmol/L 3.5-5.1 [facility] Comment on above: Slight Hemolysis, Re sult may be falsely increased. Absolute lymphocyte countOrd ered By: Breanne Ruiz on 08-08-2023 Lymphocytes Auto (Unsp spec) [#/Vol] 1.44 10*3/uL 0.83-4.51 [facility] Automated lymphocyte count a s percentage of total leukocytesOrdered By: Breanne Ruiz on 08-08-2023 Lymphocytes/100 WBC Auto (Unsp spec) 12.7 % 19-41 [facility] Basophil percentageOrdered B y: Elioadalbertolalitachetan Kirklandmichaelbeverly on 08-08-2023 Basophils/100 WBC (Bld) 1.1 % 0-1 [facility] Bilirubin [Mass/Vol] 0.30 mg/dL 0.20-1.00 [facility] Comment on above: For patients on eltr ombopag therapy, use of Dimension [place] TBIL is not recommended. Chloride [Moles/Vol] 107 mmol/L 98-107 [facility] Eosinophils/100 WBC (Bld) 3.1 % 0-5 [facility] Glucose [Mass/Vol] 153 mg/dL 74-106 [facility] Comment on above: Fasting Glucose resu lt greater than or equal to 126 mg/dL suggests DIABETES MELLITUS per A.D.A. criteria. Hemoglobin (Bld) [Mass/Vol] 14.3 g/dL 12.0-15.0 [facility] Monocytes/100 WBC (Bld) 10.4 % 0-10 [facility] Neutrophils (Bld) [#/Vol] 8.1 10*3/uL 2.0-7.7 [facility] Neutrophils/100 WBC (Bld) 71.8 % 47-70 [facility] Potassium [Moles/Vol] 3.4 mmol/L 3.5-5.1 [facility] Protein [Mass/Vol] 6.9 g/dL 6.4-8.2 [facility] Sodium [Moles/Vol] 141 mmol/L 136-145 [facility] WBC (Bld) [#/Vol] 11.3 10*3/uL 4.4-11.0 [facility] Determination of erythrocyte mean corpuscular volume (MCV)Ordered By: Breanne Ruiz on 08-08-2023 MCV (RBC) [Entitic vol] 88.6 fL 81-99 [facility] Erythrocyte distribution wid th ratioOrdered By: Breanne Ruiz on 08-08-2023 Erythrocyte distribution width (RBC) [Ratio] 14.8 % 11.6-14.6 [facility] Erythrocyte distribution wid th standard deviationOrdered By: Breanne Ruiz on 08-08-2023 Erythrocyte distribution width (RBC) [Entitic vol] 47.9 fL 35.1-43.9 [facility] Hematocrit Auto (Bld) [Volum e fraction]Ordered By: Breanne Ruiz on 08-08-2023 Hematocrit (Bld) [Volume fraction] 46.7 % 37-47 [facility] Immature granulocytes/100 WB C Auto (Bld)Ordered By: Breanne Ruiz on 08-08-2023 Immature granulocytes/100 WBC (Bld) 0.900 % 0.0-0.9 [facility] Comment on above: IG% - Immature Granu locytes (promyelocytes, myelocytes and metamyelocytes) > 1% indicates that a LEFT SHIFT is Present. Laboratory - Chemistry and C hemistry - challengeOrdered By: Breanne Ruiz on 08-08-2023 Albumin/Globulin [Mass ratio] 0.9 {ratio} 0.9-2.4 [facility] ALP [Catalytic activity/Vol] 93 U/L 45-117 [facility] ALT [Catalytic activity/Vol] 36 U/L 13-56 [facility] CO2 [Moles/Vol] 26.0 mmol/L 21.0-32.0 [facility] Globulin (S) [Mass/Vol] 3.7 g/dL 2.2-4.2 [facility] Urea nitrogen/Creatinine [Mass ratio] 28.0 mg/mg 10-20 [facility] Laboratory - Hematology and Cell countsOrdered By: Breanne Ruiz on 08-08-2023 MCH (RBC) [Entitic mass] 27.1 pg 27.0-32.0 [facility] MCHC (RBC) [Mass/Vol] 30.6 g/dL 32-36 [facility] Nucleated RBC/100 WBC (Bld) [Ratio] 0 % 0-5 [facility] Platelet mean volume (Bld) [Entitic vol] 9.3 fL 6.2-12.0 [facility] Platelets (Bld) [#/Vol] 535 10*3/uL 150-450 [facility] No Panel InformationOrdered By: Breanne Ruiz on 08-08-2023 Estimated GFR (MDRD) Amer 105 mL/min >60 [facility] Comment on above: GFR Calc Estimated GFR (MDRD) Non-Af Amer 87 mL/min >60 [facility] Comment on above: Non- GFR Calc RBC Auto (Bld) [#/Vol]Ordere d By: Breanne Ruiz on 08-08-2023 RBC (Bld) [#/Vol] 5.27 10*6/uL 4.2-5.4 [facility] Serum or plasma calcium jj urement (mass/volume)Ordered By: Breanne Ruiz on 08-08-2023 Calcium [Mass/Vol] 10.0 mg/dL 8.5-10.1 [facility] Serum or plasma creatinine m easurement (mass/volume)Ordered By: Breanne Ruiz on 08-08-2023 Creatinine [Mass/Vol] 0.71 mg/dL 0.55-1.02 [facility] Comment on above: The validity of the calculated GFR & GFRAA in patients over 70 years has not been determined. Clinical correlation is essential. Serum or plasma urea nitroge n measurement (mass/volume)Ordered By: Breanne Ruiz on 08-08-2023 Urea nitrogen [Mass/Vol] 20 mg/dL 7-18 [facility] Thin prep Papanicolaou smear with manual screeningOrdered By: Breanne Ruiz on 08-08-2023 Thin prep Papanicolaou smear with manual screening 3.2 g/dL 3.2-5.0 [facility] Thin prep Papanicolaou smear with manual screening 31 U/L 15-37 [facility] Thin prep Papanicolaou smear with manual screening 8 5-15 [facility] Basophil percentageOrdered B y: Breanne Ruiz on 07-17-2023 Chloride [Moles/Vol] 109 mmol/L 98-107 [facility] Glucose [Mass/Vol] 150 mg/dL 74-106 [facility] Comment on above: Fasting Glucose resu lt greater than or equal to 126 mg/dL suggests DIABETES MELLITUS per A.D.A. criteria. Potassium [Moles/Vol] 3.8 mmol/L 3.5-5.1 [facility] Sodium [Moles/Vol] 143 mmol/L 136-145 [facility] Laboratory - Chemistry and C hemistry - challengeOrdered By: Breanne Ruiz on 07-17-2023 CO2 [Moles/Vol] 24.0 mmol/L 21.0-32.0 [facility] Urea nitrogen/Creatinine [Mass ratio] 31.3 mg/mg 10-20 [facility] No Panel InformationOrdered By: Breanne Ruiz on 07-17-2023 Estimated GFR (MDRD) Amer 114 mL/min >60 [facility] Comment on above: GFR Calc Estimated GFR (MDRD) Non-Af Amer 94 mL/min >60 [facility] Comment on above: Non- GFR Calc Serum or plasma calcium jj urement (mass/volume)Ordered By: Breanne Ruiz on 07-17-2023 Calcium [Mass/Vol] 9.6 mg/dL 8.5-10.1 [facility] Serum or plasma creatinine m easurement (mass/volume)Ordered By: Breanne Ruiz on 07-17-2023 Creatinine [Mass/Vol] 0.67 mg/dL 0.55-1.02 [facility] Comment on above: The validity of the calculated GFR & GFRAA in patients over 70 years has not been determined. Clinical correlation is essential. Serum or plasma urea nitroge n measurement (mass/volume)Ordered By: Breanne Ruiz on 07-17-2023 Urea nitrogen [Mass/Vol] 21 mg/dL 7-18 [facility] Thin prep Papanicolaou smear with manual screeningOrdered By: Breanne Ruiz on 07-17-2023 Thin prep Papanicolaou smear with manual screening 10 5-15 [facility] Basophil percentageOrdered B y: Breanne Ruiz on 07-03-2023 Chloride [Moles/Vol] 109 mmol/L 98-107 [facility] Glucose [Mass/Vol] 156 mg/dL 74-106 [facility] Comment on above: Fasting Glucose resu lt greater than or equal to 126 mg/dL suggests DIABETES MELLITUS per A.D.A. criteria. Potassium [Moles/Vol] 3.5 mmol/L 3.5-5.1 [facility] Comment on above: Slight Hemolysis, Re sult may be falsely increased. Sodium [Moles/Vol] 141 mmol/L 136-145 [facility] Laboratory - Chemistry and C hemistry - challengeOrdered By: Breanne Ruiz on 07-03-2023 CO2 [Moles/Vol] 25.0 mmol/L 21.0-32.0 [facility] Urea nitrogen/Creatinine [Mass ratio] 29.4 mg/mg 10-20 [facility] No Panel InformationOrdered By: Breanne Ruiz on 07-03-2023 Estimated GFR (MDRD) Amer 111 mL/min >60 [facility] Comment on above: GFR Calc Estimated GFR (MDRD) Non-Af Amer 92 mL/min >60 [facility] Comment on above: Non- GFR Calc Serum or plasma calcium jj urement (mass/volume)Ordered By: Breanne Ruiz on 07-03-2023 Calcium [Mass/Vol] 9.8 mg/dL 8.5-10.1 [facility] Serum or plasma creatinine m easurement (mass/volume)Ordered By: Breanne Ruiz on 07-03-2023 Creatinine [Mass/Vol] 0.68 mg/dL 0.55-1.02 [facility] Comment on above: The validity of the calculated GFR & GFRAA in patients over 70 years has not been determined. Clinical correlation is essential. Serum or plasma urea nitroge n measurement (mass/volume)Ordered By: Breanne Ruiz on 07-03-2023 Urea nitrogen [Mass/Vol] 20 mg/dL -18 [facility] Thin prep Papanicolaou smear with manual screeningOrdered By: Breanne Ruiz on 07-03-2023 Thin prep Papanicolaou smear with manual screening 7 5-15 [facility] Whole blood hemoglobin A1c/t otal hemoglobin ratio (mass fraction)Ordered By: Breanne Ruiz on 06-06-2023 HbA1c (Bld) [Mass fraction] 7.5 % 3.8-5.6 [facility] Comment on above: Normal < 5.7 % Predi abetic 5.7 - 6.4 % Diabetic >or= 6.5 % Please note range changes. Absolute lymphocyte countOrd ered By: Breanne Ruiz on 05-09-2023 Lymphocytes Auto (Unsp spec) [#/Vol] 1.09 10*3/uL 0.83-4.51 [facility] Basophil percentageOrdered B y: Breanne Ruiz on 05-09-2023 Basophils/100 WBC (Bld) 1.2 % 0-1 [facility] Bilirubin [Mass/Vol] 0.30 mg/dL 0.20-1.00 [facility] Comment on above: For patients on eltr ombopag therapy, use of Dimension [place] TBIL is not recommended. Chloride [Moles/Vol] 107 mmol/L 98-107 [facility] Eosinophils/100 WBC (Bld) 2.8 % 0-5 [facility] Glucose [Mass/Vol] 203 mg/dL 74-106 [facility] [facility] Comment on above: Glucose result great er than or equal to 200 mg/dLsuggests DIABETES MELLITUS per A.D.A. criteria. Neutrophils (Bld) [#/Vol] 5.5 10*3/uL 2.0-7.7 [facility] Neutrophils/100 WBC (Bld) 68.1 % 47-70 [facility] Potassium [Moles/Vol] 4.0 mmol/L 3.5-5.1 [facility] Protein [Mass/Vol] 7.0 g/dL 6.4-8.2 [facility] Sodium [Moles/Vol] 140 mmol/L 136-145 [facility] WBC (Bld) [#/Vol] 8.1 10*3/uL 4.4-11.0 [facility] Blood erythrocytes count (nu mber/volume)Ordered By: Breanne Ruiz on 05-09-2023 RBC (Bld) [#/Vol] 5.62 10*6/uL 4.2-5.4 [facility] Blood hemoglobin measurement (mass/volume)Ordered By: Breanne Ruiz on 05-09-2023 Hemoglobin (Bld) [Mass/Vol] 14.7 g/dL 12.0-15.0 [facility] Blood lymphocytes/100 leukoc ytesOrdered By: Breanne Ruiz on 05-09-2023 Lymphocytes/100 WBC (Bld) 13.4 % 19-41 [facility] Blood monocytes/100 leukocyt esOrdered By: Breanne Ruiz on 05-09-2023 Monocytes/100 WBC (Bld) 13.8 % 0-10 [facility] Blood platelet mean volumeOr dered By: Breanne Ruiz on 05-09-2023 Platelet mean volume (Bld) [Entitic vol] 9.6 fL 6.2-12.0 [facility] Determination of erythrocyte mean corpuscular volume (MCV)Ordered By: Breanne Ruiz on 05-09-2023 MCV (RBC) [Entitic vol] 88.1 fL 81-99 [facility] Hematocrit Auto (Bld) [Volum e fraction]Ordered By: Abbieduckchetan Ruiz on 05-09-2023 Hematocrit (Bld) [Volume fraction] 49.5 % 37-47 [facility] Laboratory - Chemistry and C hemistry - challengeOrdered By: Breanne Ruiz on 05-09-2023 ALP [Catalytic activity/Vol] 111 U/L 45-117 [facility] ALT [Catalytic activity/Vol] 57 U/L 13-56 [facility] CO2 [Moles/Vol] 25.0 mmol/L 21.0-32.0 [facility] Globulin (S) [Mass/Vol] 3.7 g/dL 2.2-4.2 [facility] Urea nitrogen/Creatinine [Mass ratio] 38.0 mg/mg 10-20 [facility] - Hematology and Cell countsOrdered By: Breanne Ruiz on 05-09-2023 Erythrocyte distribution width (RBC) [Entitic vol] 49.4 fL 35.1-43.9 [facility] Erythrocyte distribution width (RBC) [Ratio] 15.6 % 11.6-14.6 [facility] Immature granulocytes/100 WBC (Bld) 0.700 % 0.0-0.9 [facility] Comment on above: IG% - Immature Granu locytes (promyelocytes, myelocytes and metamyelocytes) > 1% indicates that a LEFT SHIFT is Present. MCH (RBC) [Entitic mass] 26.2 pg 27.0-32.0 [facility] Nucleated RBC/100 WBC (Bld) [Ratio] 0 % 0-5 [facility] MCHC Auto (RBC) [Mass/Vol]Or dered By: Breanne Ruiz on 05-09-2023 MCHC (RBC) [Mass/Vol] 29.7 g/dL 32-36 [facility] No Panel InformationOrdered By: Breanne Ruiz on 05-09-2023 Estimated GFR (MDRD) Amer 111 mL/min >60 [facility] Comment on above: GFR Calc Estimated GFR (MDRD) Non-Af Amer 92 mL/min >60 [facility] Comment on above: Non- GFR Calc Platelets bldOrdered By: Prashant Ruiz on 05-09-2023 Platelets (Bld) [#/Vol] 553 10*3/uL 150-450 [facility] Serum or plasma albumin jj urement (mass/volume)Ordered By: Breanne Ruiz on 05-09-2023 Albumin [Mass/Vol] 3.3 g/dL 3.2-5.0 [facility] Serum or plasma albumin/glob ulin mass ratioOrdered By: Breanne Ruiz on 05-09-2023 Albumin/Globulin [Mass ratio] 0.9 {ratio} 0.9-2.4 [facility] Serum or plasma calcium jj urement (mass/volume)Ordered By: Breanne Ruiz on 05-09-2023 Calcium [Mass/Vol] 9.6 mg/dL 8.5-10.1 [facility] Serum or plasma creatinine m easurement (mass/volume)Ordered By: Breanne Ruiz on 05-09-2023 Creatinine [Mass/Vol] 0.68 mg/dL 0.55-1.02 [facility] Comment on above: The validity of the calculated GFR & GFRAA in patients over 70 years has not been determined. Clinical correlation is essential. Serum or plasma urea nitroge n measurement (mass/volume)Ordered By: Breanne Ruiz on 05-09-2023 Urea nitrogen [Mass/Vol] 26 mg/dL 7-18 [facility] Thin prep Papanicolaou smear with manual screeningOrdered By: Breanne Ruiz on 05-09-2023 Thin prep Papanicolaou smear with manual screening 37 U/L 15-37 [facility] Thin prep Papanicolaou smear with manual screening 8 5-15 [facility] Clostridium difficile detect ion by polymerase chain reactionOrdered By: Breanne Ruiz on 02-23-2023 C. difficile DNA MAGALIE+probe Ql (Unsp spec) [facility] Clostridium difficile detect ion by polymerase chain reactionOrdered By: Breanne Ruiz on 02-22-2023 C. difficile DNA MAGALIE+probe Ql (Unsp spec) [facility] Absolute lymphocyte countOrd ered By: Britney Worthington on 02-21-2023 Lymphocytes Auto (Unsp spec) [#/Vol] 0.97 10*3/uL 0.83-4.51 [facility] Basophil percentageOrdered B y: Britney Worthington on 02-21-2023 Basophils/100 WBC (Bld) 1.2 % 0-1 [facility] Chloride [Moles/Vol] 108 mmol/L 98-107 [facility] Eosinophils/100 WBC (Bld) 4.4 % 0-5 [facility] Glucose [Mass/Vol] 178 mg/dL 74-106 [facility] Comment on above: Fasting Glucose resu lt greater than or equal to 126 mg/dL suggests DIABETES MELLITUS per A.D.A. criteria. Neutrophils (Bld) [#/Vol] 8.1 10*3/uL 2.0-7.7 [facility] Neutrophils/100 WBC (Bld) 74.9 % 47-70 [facility] Potassium [Moles/Vol] 3.7 mmol/L 3.5-5.1 [facility] Sodium [Moles/Vol] 140 mmol/L 136-145 [facility] WBC (Bld) [#/Vol] 10.8 10*3/uL 4.4-11.0 [facility] Blood erythrocytes count (nu mber/volume)Ordered By: Britney Worthington on 02-21-2023 RBC (Bld) [#/Vol] 5.06 10*6/uL 4.2-5.4 [facility] Blood hemoglobin measurement (mass/volume)Ordered By: Britney Worthington on 02-21-2023 Hemoglobin (Bld) [Mass/Vol] 13.3 g/dL 12.0-15.0 [facility] Blood lymphocytes/100 leukoc ytesOrdered By: Britney Worthington on 02-21-2023 Lymphocytes/100 WBC (Bld) 9.0 % 19-41 [facility] Blood monocytes/100 leukocyt esOrdered By: Britney Worthington on 02-21-2023 Monocytes/100 WBC (Bld) 9.8 % 0-10 [facility] Blood platelet mean volumeOr dered By: Britney Worthington on 02-21-2023 Platelet mean volume (Bld) [Entitic vol] 9.2 fL 6.2-12.0 [facility] Determination of erythrocyte mean corpuscular volume (MCV)Ordered By: Britney Worthington on 02-21-2023 MCV (RBC) [Entitic vol] 89.5 fL 81-99 [facility] Hematocrit Auto (Bld) [Volum e fraction]Ordered By: Britney Worthington on 02-21-2023 Hematocrit (Bld) [Volume fraction] 45.3 % 37-47 [facility] - Chemistry and C hemistry - challengeOrdered By: Britney Worthington on 02-21-2023 CO2 [Moles/Vol] 24.0 mmol/L 21.0-32.0 [facility] Urea nitrogen/Creatinine [Mass ratio] 37.7 mg/mg 10-20 [facility] - Hematology and Cell countsOrdered By: Britney Worthington on 02-21-2023 Erythrocyte distribution width (RBC) [Entitic vol] 47.6 fL 35.1-43.9 [facility] Erythrocyte distribution width (RBC) [Ratio] 14.5 % 11.6-14.6 [facility] Immature granulocytes/100 WBC (Bld) 0.700 % 0.0-0.9 [facility] Comment on above: IG% - Immature Granu locytes (promyelocytes, myelocytes and metamyelocytes) > 1% indicates that a LEFT SHIFT is Present. MCH (RBC) [Entitic mass] 26.3 pg 27.0-32.0 [facility] Nucleated RBC/100 WBC (Bld) [Ratio] 0 % 0-5 [facility] MCHC Auto (RBC) [Mass/Vol]Or dered By: Britney Worthington on 02-21-2023 MCHC (RBC) [Mass/Vol] 29.4 g/dL 32-36 [facility] No Panel InformationOrdered By: Britney Worthington on 02-21-2023 Estimated GFR (MDRD) Amer 105 mL/min >60 [facility] Comment on above: GFR Calc Estimated GFR (MDRD) Non-Af Amer 87 mL/min >60 [facility] Comment on above: Non- GFR Calc Platelets bldOrdered By: Phillip Worthington on 02-21-2023 Platelets (Bld) [#/Vol] 500 10*3/uL 150-450 [facility] Serum or plasma calcium jj urement (mass/volume)Ordered By: Britney Worthnigton on 02-21-2023 Calcium [Mass/Vol] 9.1 mg/dL 8.5-10.1 [facility] Serum or plasma creatinine m easurement (mass/volume)Ordered By: Britney Worthington on 02-21-2023 Creatinine [Mass/Vol] 0.72 mg/dL 0.55-1.02 [facility] Comment on above: The validity of the calculated GFR & GFRAA in patients over 70 years has not been determined. Clinical correlation is essential. Serum or plasma urea nitroge n measurement (mass/volume)Ordered By: Britney Worthington on 02-21-2023 Urea nitrogen [Mass/Vol] 27 mg/dL 7-18 [facility] Thin prep Papanicolaou smear with manual screeningOrdered By: Britney Worthington on 02-21-2023 Thin prep Papanicolaou smear with manual screening 8 5-15 [facility] Bilirubin Test strip Ql (U)O rdered By: Breanne Ruiz on 02-13-2023 Bilirubin Ql (U) Negative Negative [facility] Culture, urineOrdered By: Elio Ruiz on 02-13-2023 Bacteria identified Cx Nom (U) Escherichia coli [facility] Ketones Test strip Ql (U)Ord ered By: Breanne Ruiz on 02-13-2023 Ketones Ql (U) 5 mg/dl Negative [facility] Nitrite Test strip Ql (U)Ord ered By: Breanne Ruiz on 02-13-2023 Nitrite Ql (U) Positive Negative [facility] Protein Test strip Ql (U)Ord ered By: Breanne Ruiz on 02-13-2023 Protein Ql (U) 30 mg/dl Negative [facility] Urine blood detectionOrdered By: Breanne Ruiz on 02-13-2023 RBC Ql (U) 250 /ul Negative [facility] Urine clarityOrdered By: Prashant Ruiz on 02-13-2023 Clarity (U) Cloudy Clear [facility] Urine color determinationOrd ered By: Breanne Ruiz on 02-13-2023 Color (U) Brown Yellow [facility] Urine glucose detectionOrder ed By: Breanne Ruiz on 02-13-2023 Glucose Ql (U) Normal mg/dl Normal [facility] Urine leukocyte esterase det ection by dipstickOrdered By: Breanne Ruiz on 02-13-2023 Leukocyte esterase Test strip Ql (U) 25 /ul Negative [facility] Urine pHOrdered By: Bhupendra Ruiz on 02-13-2023 pH (U) 5.0 [pH] 5.0 - 8.0 [facility] Urine specific gravity measu rementOrdered By: Breanne Ruiz on 02-13-2023 Specific gravity (U) [Rel density] 1.025 1.002-1.030 [facility] Urobilinogen Auto test strip Ql (U)Ordered By: Breanne Ruiz on 02-13-2023 Urobilinogen Ql (U) 1 mg/dl Normal [facility] Absolute lymphocyte countOrd ered By: Breanne Ruiz on 02-07-2023 Lymphocytes Auto (Unsp spec) [#/Vol] 0.94 10*3/uL 0.83-4.51 [facility] Basophil percentageOrdered B y: Brenane Ruiz on 02-07-2023 Basophils/100 WBC (Bld) 1.1 % 0-1 [facility] Chloride [Moles/Vol] 110 mmol/L 98-107 [facility] Eosinophils/100 WBC (Bld) 5.5 % 0-5 [facility] Glucose [Mass/Vol] 160 mg/dL 74-106 [facility] Comment on above: Fasting Glucose resu lt greater than or equal to 126 mg/dL suggests DIABETES MELLITUS per A.D.A. criteria. Neutrophils (Bld) [#/Vol] 6.3 10*3/uL 2.0-7.7 [facility] Neutrophils/100 WBC (Bld) 70.8 % 47-70 [facility] Potassium [Moles/Vol] 3.9 mmol/L 3.5-5.1 [facility] Sodium [Moles/Vol] 141 mmol/L 136-145 [facility] WBC (Bld) [#/Vol] 9.0 10*3/uL 4.4-11.0 [facility] Blood erythrocytes count (nu mber/volume)Ordered By: Breanne Ruiz on 02-07-2023 RBC (Bld) [#/Vol] 4.98 10*6/uL 4.2-5.4 [facility] Blood hemoglobin measurement (mass/volume)Ordered By: Breanne Ruiz on 02-07-2023 Hemoglobin (Bld) [Mass/Vol] 13.3 g/dL 12.0-15.0 [facility] Blood lymphocytes/100 leukoc ytesOrdered By: Breanne Ruiz on 02-07-2023 Lymphocytes/100 WBC (Bld) 10.5 % 19-41 [facility] Blood monocytes/100 leukocyt esOrdered By: Breanne Ruiz on 02-07-2023 Monocytes/100 WBC (Bld) 11.1 % 0-10 [facility] Blood platelet mean volumeOr dered By: Breanne Ruiz on 02-07-2023 Platelet mean volume (Bld) [Entitic vol] 9.0 fL 6.2-12.0 [facility] Determination of erythrocyte mean corpuscular volume (MCV)Ordered By: Breanne Ruiz on 02-07-2023 MCV (RBC) [Entitic vol] 88.8 fL 81-99 [facility] Hematocrit Auto (Bld) [Volum e fraction]Ordered By: Breanne Ruiz on 02-07-2023 Hematocrit (Bld) [Volume fraction] 44.2 % 37-47 [facility] - Chemistry and C hemistry - challengeOrdered By: Breanne Ruiz on 02-07-2023 CO2 [Moles/Vol] 24.0 mmol/L 21.0-32.0 [facility] Urea nitrogen/Creatinine [Mass ratio] 37.3 mg/mg 10-20 [facility] - Hematology and Cell countsOrdered By: Breanne Ruiz on 02-07-2023 Erythrocyte distribution width (RBC) [Entitic vol] 47.9 fL 35.1-43.9 [facility] Erythrocyte distribution width (RBC) [Ratio] 14.6 % 11.6-14.6 [facility] Immature granulocytes/100 WBC (Bld) 1.000 % 0.0-0.9 [facility] Comment on above: IG% - Immature Granu locytes (promyelocytes, myelocytes and metamyelocytes) > 1% indicates that a LEFT SHIFT is Present. MCH (RBC) [Entitic mass] 26.7 pg 27.0-32.0 [facility] Nucleated RBC/100 WBC (Bld) [Ratio] 0 % 0-5 [facility] MCHC Auto (RBC) [Mass/Vol]Or dered By: Breanne Ruiz on 02-07-2023 MCHC (RBC) [Mass/Vol] 30.1 g/dL 32-36 [facility] No Panel InformationOrdered By: Breanne Ruiz on 02-07-2023 Estimated GFR (MDRD) Amer 132 mL/min >60 [facility] Comment on above: GFR Calc Estimated GFR (MDRD) Non-Af Amer 109 mL/min >60 [facility] Comment on above: Non- GFR Calc Platelets bldOrdered By: Prashant Ruiz on 02-07-2023 Platelets (Bld) [#/Vol] 478 10*3/uL 150-450 [facility] Serum or plasma calcium jj urement (mass/volume)Ordered By: Breanne Ruiz on 02-07-2023 Calcium [Mass/Vol] 8.9 mg/dL 8.5-10.1 [facility] Serum or plasma creatinine m easurement (mass/volume)Ordered By: Breanne Ruiz on 02-07-2023 Creatinine [Mass/Vol] 0.59 mg/dL 0.55-1.02 [facility] Comment on above: The validity of the calculated GFR & GFRAA in patients over 70 years has not been determined. Clinical correlation is essential. Serum or plasma urea nitroge n measurement (mass/volume)Ordered By: Breanne Ruiz on 02-07-2023 Urea nitrogen [Mass/Vol] 22 mg/dL 7-18 [facility] Thin prep Papanicolaou smear with manual screeningOrdered By: Breanne Ruiz on 02-07-2023 Thin prep Papanicolaou smear with manual screening 7 5-15 [facility] Absolute lymphocyte countOrd ered By: Britney Worthington on 01-24-2023 Lymphocytes Auto (Unsp spec) [#/Vol] 0.89 10*3/uL 0.83-4.51 [facility] Basophil percentageOrdered B y: Britney Worthington on 01-24-2023 Basophils/100 WBC (Bld) 1.1 % 0-1 [facility] Chloride [Moles/Vol] 108 mmol/L 98-107 [facility] Eosinophils/100 WBC (Bld) 5.0 % 0-5 [facility] Glucose [Mass/Vol] 141 mg/dL 74-106 [facility] Comment on above: Fasting Glucose resu lt greater than or equal to 126 mg/dL suggests DIABETES MELLITUS per A.D.A. criteria. Neutrophils (Bld) [#/Vol] 5.9 10*3/uL 2.0-7.7 [facility] Neutrophils/100 WBC (Bld) 71.4 % 47-70 [facility] Potassium [Moles/Vol] 3.9 mmol/L 3.5-5.1 [facility] Sodium [Moles/Vol] 140 mmol/L 136-145 [facility] WBC (Bld) [#/Vol] 8.2 10*3/uL 4.4-11.0 [facility] Blood erythrocytes count (nu mber/volume)Ordered By: Britney Worthington on 01-24-2023 RBC (Bld) [#/Vol] 4.81 10*6/uL 4.2-5.4 [facility] Blood hemoglobin measurement (mass/volume)Ordered By: Britney Worthington on 01-24-2023 Hemoglobin (Bld) [Mass/Vol] 12.8 g/dL 12.0-15.0 [facility] Blood lymphocytes/100 leukoc ytesOrdered By: Britney Worthington on 01-24-2023 Lymphocytes/100 WBC (Bld) 10.9 % 19-41 [facility] Blood monocytes/100 leukocyt esOrdered By: Britney Worthington on 01-24-2023 Monocytes/100 WBC (Bld) 11.0 % 0-10 [facility] Blood platelet mean volumeOr dered By: Britney Worthington on 01-24-2023 Platelet mean volume (Bld) [Entitic vol] 9.0 fL 6.2-12.0 [facility] Determination of erythrocyte mean corpuscular volume (MCV)Ordered By: Britney Worthington on 01-24-2023 MCV (RBC) [Entitic vol] 88.8 fL 81-99 [facility] Hematocrit Auto (Bld) [Volum e fraction]Ordered By: Britney Worthington on 01-24-2023 Hematocrit (Bld) [Volume fraction] 42.7 % 37-47 [facility] - Chemistry and C hemistry - challengeOrdered By: Britney Worthington on 01-24-2023 CO2 [Moles/Vol] 25.0 mmol/L 21.0-32.0 [facility] Urea nitrogen/Creatinine [Mass ratio] 33.7 mg/mg 10-20 [facility] - Hematology and Cell countsOrdered By: Britney Worthington on 01-24-2023 Erythrocyte distribution width (RBC) [Entitic vol] 48.3 fL 35.1-43.9 [facility] Erythrocyte distribution width (RBC) [Ratio] 14.8 % 11.6-14.6 [facility] Immature granulocytes/100 WBC (Bld) 0.600 % 0.0-0.9 [facility] Comment on above: IG% - Immature Granu locytes (promyelocytes, myelocytes and metamyelocytes) > 1% indicates that a LEFT SHIFT is Present. MCH (RBC) [Entitic mass] 26.6 pg 27.0-32.0 [facility] Nucleated RBC/100 WBC (Bld) [Ratio] 0 % 0-5 [facility] MCHC Auto (RBC) [Mass/Vol]Or dered By: Brintey Worthington on 01-24-2023 MCHC (RBC) [Mass/Vol] 30.0 g/dL 32-36 [facility] No Panel InformationOrdered By: Britney Worthington on 01-24-2023 Estimated GFR (MDRD) Amer 131 mL/min >60 [facility] Comment on above: GFR Calc Estimated GFR (MDRD) Non-Af Amer 108 mL/min >60 [facility] Comment on above: Non- GFR Calc Platelets bldOrdered By: Phillip Worthington on 01-24-2023 Platelets (Bld) [#/Vol] 479 10*3/uL 150-450 [facility] Serum or plasma calcium jj urement (mass/volume)Ordered By: Britney Worthington on 01-24-2023 Calcium [Mass/Vol] 8.9 mg/dL 8.5-10.1 [facility] Serum or plasma creatinine m easurement (mass/volume)Ordered By: Britney Worthington on 01-24-2023 Creatinine [Mass/Vol] 0.59 mg/dL 0.55-1.02 [facility] Comment on above: The validity of the calculated GFR & GFRAA in patients over 70 years has not been determined. Clinical correlation is essential. Serum or plasma urea nitroge n measurement (mass/volume)Ordered By: Britney Worthington on 01-24-2023 Urea nitrogen [Mass/Vol] 20 mg/dL 7-18 [facility] Thin prep Papanicolaou smear with manual screeningOrdered By: Britney Worthington on 01-24-2023 Thin prep Papanicolaou smear with manual screening 7 5-15 [facility] Absolute lymphocyte countOrd ered By: Breanne Ruiz on 01-10-2023 Lymphocytes Auto (Unsp spec) [#/Vol] 0.84 10*3/uL 0.83-4.51 [facility] Basophil percentageOrdered B y: Breanne Ruiz on 01-10-2023 Basophils/100 WBC (Bld) 1.0 % 0-1 [facility] Chloride [Moles/Vol] 109 mmol/L 98-107 [facility] Eosinophils/100 WBC (Bld) 4.6 % 0-5 [facility] Glucose [Mass/Vol] 147 mg/dL 74-106 [facility] Comment on above: Fasting Glucose resu lt greater than or equal to 126 mg/dL suggests DIABETES MELLITUS per A.D.A. criteria. Neutrophils (Bld) [#/Vol] 7.2 10*3/uL 2.0-7.7 [facility] Neutrophils/100 WBC (Bld) 74.5 % 47-70 [facility] Potassium [Moles/Vol] 3.9 mmol/L 3.5-5.1 [facility] Sodium [Moles/Vol] 140 mmol/L 136-145 [facility] WBC (Bld) [#/Vol] 9.7 10*3/uL 4.4-11.0 [facility] Blood erythrocytes count (nu mber/volume)Ordered By: Breanne Ruiz on 01-10-2023 RBC (Bld) [#/Vol] 4.98 10*6/uL 4.2-5.4 [facility] Blood hemoglobin measurement (mass/volume)Ordered By: Breanne Ruiz on 01-10-2023 Hemoglobin (Bld) [Mass/Vol] 13.4 g/dL 12.0-15.0 [facility] Blood lymphocytes/100 leukoc ytesOrdered By: Breanne Ruiz on 01-10-2023 Lymphocytes/100 WBC (Bld) 8.7 % 19-41 [facility] Blood monocytes/100 leukocyt esOrdered By: Breanne Ruiz on 01-10-2023 Monocytes/100 WBC (Bld) 10.3 % 0-10 [facility] Blood platelet mean volumeOr dered By: Breanne Ruiz on 01-10-2023 Platelet mean volume (Bld) [Entitic vol] 8.8 fL 6.2-12.0 [facility] Determination of erythrocyte mean corpuscular volume (MCV)Ordered By: Breanne Ruiz on 01-10-2023 MCV (RBC) [Entitic vol] 86.5 fL 81-99 [facility] Hematocrit Auto (Bld) [Volum e fraction]Ordered By: Breanne Ruiz on 01-10-2023 Hematocrit (Bld) [Volume fraction] 43.1 % 37-47 [facility] - Chemistry and C hemistry - challengeOrdered By: Breanne Ruiz on 01-10-2023 CO2 [Moles/Vol] 24.0 mmol/L 21.0-32.0 [facility] Urea nitrogen/Creatinine [Mass ratio] 36.1 mg/mg 10-20 [facility] - Hematology and Cell countsOrdered By: Breanne Ruiz on 01-10-2023 Erythrocyte distribution width (RBC) [Entitic vol] 48.4 fL 35.1-43.9 [facility] Erythrocyte distribution width (RBC) [Ratio] 15.3 % 11.6-14.6 [facility] Immature granulocytes/100 WBC (Bld) 0.900 % 0.0-0.9 [facility] Comment on above: IG% - Immature Granu locytes (promyelocytes, myelocytes and metamyelocytes) > 1% indicates that a LEFT SHIFT is Present. MCH (RBC) [Entitic mass] 26.9 pg 27.0-32.0 [facility] Nucleated RBC/100 WBC (Bld) [Ratio] 0 % 0-5 [facility] MCHC Auto (RBC) [Mass/Vol]Or dered By: Breanne Ruiz on 01-10-2023 MCHC (RBC) [Mass/Vol] 31.1 g/dL 32-36 [facility] No Panel InformationOrdered By: Breanne Ruiz on 01-10-2023 Estimated GFR (MDRD) Amer 121 mL/min >60 [facility] Comment on above: GFR Calc Estimated GFR (MDRD) Non-Af Amer 100 mL/min >60 [facility] Comment on above: Non- GFR Calc Platelets bldOrdered By: Prashant Ruiz on 01-10-2023 Platelets (Bld) [#/Vol] 513 10*3/uL 150-450 [facility] Serum or plasma calcium jj urement (mass/volume)Ordered By: Breanne Ruiz on 01-10-2023 Calcium [Mass/Vol] 9.2 mg/dL 8.5-10.1 [facility] Serum or plasma creatinine m easurement (mass/volume)Ordered By: vannessa Ruiz on 01-10-2023 Creatinine [Mass/Vol] 0.64 mg/dL 0.55-1.02 [facility] Comment on above: The validity of the calculated GFR & GFRAA in patients over 70 years has not been determined. Clinical correlation is essential. Serum or plasma urea nitroge n measurement (mass/volume)Ordered By: [facility] 01-10-2023 Urea nitrogen [Mass/Vol] 23 mg/dL 7-18 [facility] Thin prep Papanicolaou smear with manual screeningOrdered By: [facility] Isaelbeverly on 01-10-2023 Thin prep Papanicolaou smear with manual screening 7 5-15 [facility] Absolute lymphocyte countOrd ered By: adalbertoduckchetan Kirklandbeverly on 12-27-2022 Lymphocytes Auto (Unsp spec) [#/Vol] 0.84 10*3/uL 0.83-4.51 [facility] Basophil percentageOrdered B y: Breanne Ruiz on 12-27-2022 Basophils/100 WBC (Bld) 1.3 % 0-1 [facility] Chloride [Moles/Vol] 108 mmol/L 98-107 [facility] Eosinophils/100 WBC (Bld) 4.3 % 0-5 [facility] Glucose [Mass/Vol] 178 mg/dL 74-106 [facility] Comment on above: Fasting Glucose resu lt greater than or equal to 126 mg/dL suggests DIABETES MELLITUS per A.D.A. criteria. Neutrophils (Bld) [#/Vol] 6.8 10*3/uL 2.0-7.7 [facility] Neutrophils/100 WBC (Bld) 73.8 % 47-70 [facility] Potassium [Moles/Vol] 3.9 mmol/L 3.5-5.1 [facility] Sodium [Moles/Vol] 138 mmol/L 136-145 [facility] WBC (Bld) [#/Vol] 9.3 10*3/uL 4.4-11.0 [facility] Blood erythrocytes count (nu mber/volume)Ordered By: Breanne Ruiz on 12-27-2022 RBC (Bld) [#/Vol] 4.96 10*6/uL 4.2-5.4 [facility] Blood hemoglobin measurement (mass/volume)Ordered By: Breanne Ruiz on 12-27-2022 Hemoglobin (Bld) [Mass/Vol] 13.1 g/dL 12.0-15.0 [facility] Blood lymphocytes/100 leukoc ytesOrdered By: Abbieduckchetan Ruiz on 12-27-2022 Lymphocytes/100 WBC (Bld) 9.1 % 19-41 [facility] Blood monocytes/100 leukocyt esOrdered By: Breanne Ruiz on 12-27-2022 Monocytes/100 WBC (Bld) 10.9 % 0-10 [facility] Blood platelet mean volumeOr dered By: Breanne Ruiz on 12-27-2022 Platelet mean volume (Bld) [Entitic vol] 8.9 fL 6.2-12.0 [facility] Determination of erythrocyte mean corpuscular volume (MCV)Ordered By: Breanne Ruiz on 12-27-2022 MCV (RBC) [Entitic vol] 88.9 fL 81-99 [facility] Hematocrit Auto (Bld) [Volum e fraction]Ordered By: Breanne Ruiz on 12-27-2022 Hematocrit (Bld) [Volume fraction] 44.1 % 37-47 [facility] - Chemistry and C hemistry - challengeOrdered By: Breanne Ruiz on 12-27-2022 CO2 [Moles/Vol] 24.0 mmol/L 21.0-32.0 [facility] Urea nitrogen/Creatinine [Mass ratio] 32.3 mg/mg 10-20 [facility] - Hematology and Cell countsOrdered By: Breanne Ruiz on 12-27-2022 Erythrocyte distribution width (RBC) [Entitic vol] 50.8 fL 35.1-43.9 [facility] Erythrocyte distribution width (RBC) [Ratio] 15.7 % 11.6-14.6 [facility] Immature granulocytes/100 WBC (Bld) 0.600 % 0.0-0.9 [facility] Comment on above: IG% - Immature Granu locytes (promyelocytes, myelocytes and metamyelocytes) > 1% indicates that a LEFT SHIFT is Present. MCH (RBC) [Entitic mass] 26.4 pg 27.0-32.0 [facility] Nucleated RBC/100 WBC (Bld) [Ratio] 0 % 0-5 [facility] MCHC Auto (RBC) [Mass/Vol]Or dered By: Breanne Ruiz on 12-27-2022 MCHC (RBC) [Mass/Vol] 29.7 g/dL 32-36 [facility] No Panel InformationOrdered By: Breanne Ruiz on 12-27-2022 Estimated GFR (MDRD) Amer 101 mL/min >60 [facility] Comment on above: GFR Calc Estimated GFR (MDRD) Non-Af Amer 84 mL/min >60 [facility] Comment on above: Non- GFR Calc Platelets bldOrdered By: Prashant Ruiz on 12-27-2022 Platelets (Bld) [#/Vol] 491 10*3/uL 150-450 [facility] Serum or plasma calcium jj urement (mass/volume)Ordered By: Breanne Ruiz on 12-27-2022 Calcium [Mass/Vol] 9.3 mg/dL 8.5-10.1 [facility] Serum or plasma creatinine m easurement (mass/volume)Ordered By: Breanne Ruiz on 12-27-2022 Creatinine [Mass/Vol] 0.74 mg/dL 0.55-1.02 [facility] Comment on above: The validity of the calculated GFR & GFRAA in patients over 70 years has not been determined. Clinical correlation is essential. Serum or plasma urea nitroge n measurement (mass/volume)Ordered By: Breanne Ruiz on 12-27-2022 Urea nitrogen [Mass/Vol] 24 mg/dL 7-18 [facility] Thin prep Papanicolaou smear with manual screeningOrdered By: Breanne Ruiz on 12-27-2022 Thin prep Papanicolaou smear with manual screening 6 5-15 [facility] Absolute lymphocyte countOrd ered By: Breanne Ruiz on 12-13-2022 Lymphocytes Auto (Unsp spec) [#/Vol] 0.84 10*3/uL 0.83-4.51 [facility] Basophil percentageOrdered B y: Breanne Ruiz on 12-13-2022 Basophils/100 WBC (Bld) 1.2 % 0-1 [facility] Chloride [Moles/Vol] 108 mmol/L 98-107 [facility] Eosinophils/100 WBC (Bld) 4.5 % 0-5 [facility] Glucose [Mass/Vol] 150 mg/dL 74-106 [facility] Comment on above: Fasting Glucose resu lt greater than or equal to 126 mg/dL suggests DIABETES MELLITUS per A.D.A. criteria. Neutrophils (Bld) [#/Vol] 5.4 10*3/uL 2.0-7.7 [facility] Neutrophils/100 WBC (Bld) 71.5 % 47-70 [facility] Potassium [Moles/Vol] 3.8 mmol/L 3.5-5.1 [facility] Sodium [Moles/Vol] 139 mmol/L 136-145 [facility] WBC (Bld) [#/Vol] 7.5 10*3/uL 4.4-11.0 [facility] Blood erythrocytes count (nu mber/volume)Ordered By: Breanne Ruiz on 12-13-2022 RBC (Bld) [#/Vol] 4.96 10*6/uL 4.2-5.4 [facility] Blood hemoglobin measurement (mass/volume)Ordered By: Breanne Ruiz on 12-13-2022 Hemoglobin (Bld) [Mass/Vol] 13.2 g/dL 12.0-15.0 [facility] Blood lymphocytes/100 leukoc ytesOrdered By: Breanne Ruiz on 12-13-2022 Lymphocytes/100 WBC (Bld) 11.2 % 19-41 [facility] Blood monocytes/100 leukocyt esOrdered By: Breanne Ruiz on 12-13-2022 Monocytes/100 WBC (Bld) 10.4 % 0-10 [facility] Blood platelet mean volumeOr dered By: Breanne Ruiz on 12-13-2022 Platelet mean volume (Bld) [Entitic vol] 8.7 fL 6.2-12.0 [facility] Determination of erythrocyte mean corpuscular volume (MCV)Ordered By: Breanne Ruiz on 12-13-2022 MCV (RBC) [Entitic vol] 87.1 fL 81-99 [facility] Hematocrit Auto (Bld) [Volum e fraction]Ordered By: Breanne Ruiz on 12-13-2022 Hematocrit (Bld) [Volume fraction] 43.2 % 37-47 [facility] - Chemistry and C hemistry - challengeOrdered By: adalbertoduckchtean Ruiz on 12-13-2022 CO2 [Moles/Vol] 26.0 mmol/L 21.0-32.0 [facility] Urea nitrogen/Creatinine [Mass ratio] 31.7 mg/mg 10-20 [facility] - Hematology and Cell countsOrdered By: adalbertoduckchetan Ruiz on 12-13-2022 Erythrocyte distribution width (RBC) [Entitic vol] 49.9 fL 35.1-43.9 [facility] Erythrocyte distribution width (RBC) [Ratio] 15.9 % 11.6-14.6 [facility] Immature granulocytes/100 WBC (Bld) 1.200 % 0.0-0.9 [facility] Comment on above: IG% - Immature Granu locytes (promyelocytes, myelocytes and metamyelocytes) > 1% indicates that a LEFT SHIFT is Present. MCH (RBC) [Entitic mass] 26.6 pg 27.0-32.0 [facility] Nucleated RBC/100 WBC (Bld) [Ratio] 0 % 0-5 [facility] MCHC Auto (RBC) [Mass/Vol]Or dered By: Breanne Ruiz on 12-13-2022 MCHC (RBC) [Mass/Vol] 30.6 g/dL 32-36 [facility] No Panel InformationOrdered By: Breanne Ruiz on 12-13-2022 Estimated GFR (MDRD) Amer 122 mL/min >60 [facility] Comment on above: GFR Calc Estimated GFR (MDRD) Non-Af Amer 101 mL/min >60 [facility] Comment on above: Non- GFR Calc Platelets bldOrdered By: Prashant marsh Isaelhussain on 12-13-2022 Platelets (Bld) [#/Vol] 502 10*3/uL 150-450 [facility] Serum or plasma calcium jj urement (mass/volume)Ordered By: Breanne Ruiz on 12-13-2022 Calcium [Mass/Vol] 9.2 mg/dL 8.5-10.1 [facility] Serum or plasma creatinine m easurement (mass/volume)Ordered By: Breanne Ruiz on 12-13-2022 Creatinine [Mass/Vol] 0.63 mg/dL 0.55-1.02 [facility] Comment on above: The validity of the calculated GFR & GFRAA in patients over 70 years has not been determined. Clinical correlation is essential. Serum or plasma urea nitroge n measurement (mass/volume)Ordered By: bAbielalitachetan Ruiz on 12-13-2022 Urea nitrogen [Mass/Vol] 20 mg/dL 7-18 [facility] Thin prep Papanicolaou smear with manual screeningOrdered By: Elioadalbertolalitachetan Ruiz on 12-13-2022 Thin prep Papanicolaou smear with manual screening 5 5-15 [facility] Absolute lymphocyte countOrd ered By: Rufinochetan Kirklandmichaelbeverly on 11-29-2022 Lymphocytes Auto (Unsp spec) [#/Vol] 0.94 10*3/uL 0.83-4.51 [facility] Basophil percentageOrdered B y: Abbielalitachetan Ruiz on 11-29-2022 Basophils/100 WBC (Bld) 1.1 % 0-1 [facility] Chloride [Moles/Vol] 106 mmol/L 98-107 [facility] Eosinophils/100 WBC (Bld) 5.0 % 0-5 [facility] Glucose [Mass/Vol] 137 mg/dL 74-106 [facility] Comment on above: Fasting Glucose resu lt greater than or equal to 126 mg/dL suggests DIABETES MELLITUS per A.D.A. criteria. Neutrophils (Bld) [#/Vol] 6.1 10*3/uL 2.0-7.7 [facility] Neutrophils/100 WBC (Bld) 71.9 % 47-70 [facility] Potassium [Moles/Vol] 3.9 mmol/L 3.5-5.1 [facility] Sodium [Moles/Vol] 138 mmol/L 136-145 [facility] WBC (Bld) [#/Vol] 8.4 10*3/uL 4.4-11.0 [facility] Blood erythrocytes count (nu mber/volume)Ordered By: Breanne Ruiz on 11-29-2022 RBC (Bld) [#/Vol] 5.05 10*6/uL 4.2-5.4 [facility] Blood hemoglobin measurement (mass/volume)Ordered By: Breanne Ruiz on 11-29-2022 Hemoglobin (Bld) [Mass/Vol] 13.5 g/dL 12.0-15.0 [facility] Blood lymphocytes/100 leukoc ytesOrdered By: Breanne Ruiz on 11-29-2022 Lymphocytes/100 WBC (Bld) 11.1 % 19-41 [facility] Blood monocytes/100 leukocyt esOrdered By: Breanne Ruiz on 11-29-2022 Monocytes/100 WBC (Bld) 10.3 % 0-10 [facility] Blood platelet mean volumeOr dered By: Breanne Ruiz on 11-29-2022 Platelet mean volume (Bld) [Entitic vol] 8.8 fL 6.2-12.0 [facility] Determination of erythrocyte mean corpuscular volume (MCV)Ordered By: Breanne Ruiz on 11-29-2022 MCV (RBC) [Entitic vol] 87.5 fL 81-99 [facility] Hematocrit Auto (Bld) [Volum e fraction]Ordered By: Breanne Ruiz on 11-29-2022 Hematocrit (Bld) [Volume fraction] 44.2 % 37-47 [facility] - Chemistry and C hemistry - challengeOrdered By: Breanne Ruiz on 11-29-2022 CO2 [Moles/Vol] 23.0 mmol/L 21.0-32.0 [facility] Urea nitrogen/Creatinine [Mass ratio] 26.3 mg/mg 10-20 [facility] - Hematology and Cell countsOrdered By: Breanne Ruiz on 11-29-2022 Erythrocyte distribution width (RBC) [Entitic vol] 49.9 fL 35.1-43.9 [facility] Erythrocyte distribution width (RBC) [Ratio] 15.7 % 11.6-14.6 [facility] Immature granulocytes/100 WBC (Bld) 0.600 % 0.0-0.9 [facility] Comment on above: IG% - Immature Granu locytes (promyelocytes, myelocytes and metamyelocytes) > 1% indicates that a LEFT SHIFT is Present. MCH (RBC) [Entitic mass] 26.7 pg 27.0-32.0 [facility] Nucleated RBC/100 WBC (Bld) [Ratio] 0 % 0-5 [facility] MCHC Auto (RBC) [Mass/Vol]Or dered By: Breanne Ruiz on 11-29-2022 MCHC (RBC) [Mass/Vol] 30.5 g/dL 32-36 [facility] No Panel InformationOrdered By: Breanne Ruiz on 11-29-2022 Estimated GFR (MDRD) Amer 104 mL/min >60 [facility] Comment on above: GFR Calc Estimated GFR (MDRD) Non-Af Amer 86 mL/min >60 [facility] Comment on above: Non- GFR Calc Platelets bldOrdered By: Prashant Ruiz on 11-29-2022 Platelets (Bld) [#/Vol] 479 10*3/uL 150-450 [facility] Serum or plasma calcium jj urement (mass/volume)Ordered By: Breanne Ruiz on 11-29-2022 Calcium [Mass/Vol] 9.4 mg/dL 8.5-10.1 [facility] Serum or plasma creatinine m easurement (mass/volume)Ordered By: Breanne Ruiz on 06-27-2023 Creatinine [Mass/Vol] 0.72 mg/dL 0.55-1.02 [facility] Comment on above: The validity of the calculated GFR & GFRAA in patients over 70 years has not been determined. Clinical correlation is essential. Serum or plasma urea nitroge n measurement (mass/volume)Ordered By: Breanne Ruiz on 11-29-2022 Urea nitrogen [Mass/Vol] 19 mg/dL 7-18 [facility] Thin prep Papanicolaou smear with manual screeningOrdered By: Breanne Ruiz on 11-29-2022 Thin prep Papanicolaou smear with manual screening 9 5-15 [facility] Absolute lymphocyte countOrd ered By: Asad Jamison on 11-15-2022 Lymphocytes Auto (Unsp spec) [#/Vol] 1.08 10*3/uL 0.83-4.51 [facility] Basophil percentageOrdered B y: Asad Jamison on 11-15-2022 Basophils/100 WBC (Bld) 0.9 % 0-1 [facility] Chloride [Moles/Vol] 106 mmol/L 98-107 [facility] Eosinophils/100 WBC (Bld) 2.2 % 0-5 [facility] Glucose [Mass/Vol] 120 mg/dL 74-106 [facility] Comment on above: Fasting Glucose resu lt from 100 to 125 mg/dL suggests IMPAIRED HOMEOSTASIS per A.D.A. criteria. Neutrophils (Bld) [#/Vol] 8.1 10*3/uL 2.0-7.7 [facility] Neutrophils/100 WBC (Bld) 75.6 % 47-70 [facility] Potassium [Moles/Vol] 4.1 mmol/L 3.5-5.1 [facility] Sodium [Moles/Vol] 141 mmol/L 136-145 [facility] WBC (Bld) [#/Vol] 10.7 10*3/uL 4.4-11.0 [facility] Blood erythrocytes count (nu mber/volume)Ordered By: Asad Jamison on 11-15-2022 RBC (Bld) [#/Vol] 5.54 10*6/uL 4.2-5.4 [facility] Blood hemoglobin measurement (mass/volume)Ordered By: Asad Jamison on 11-15-2022 Hemoglobin (Bld) [Mass/Vol] 14.8 g/dL 12.0-15.0 [facility] Blood lymphocytes/100 leukoc ytesOrdered By: Asad Jamison on 11-15-2022 Lymphocytes/100 WBC (Bld) 10.1 % 19-41 [facility] Blood monocytes/100 leukocyt esOrdered By: Asad Jamison on 11-15-2022 Monocytes/100 WBC (Bld) 9.6 % 0-10 [facility] Blood platelet mean volumeOr dered By: Asad Jamison on 11-15-2022 Platelet mean volume (Bld) [Entitic vol] 9.1 fL 6.2-12.0 [facility] Determination of erythrocyte mean corpuscular volume (MCV)Ordered By: Asad Jamison on 11-15-2022 MCV (RBC) [Entitic vol] 87.9 fL 81-99 [facility] Hematocrit Auto (Bld) [Volum e fraction]Ordered By: Asad Jamison on 11-15-2022 Hematocrit (Bld) [Volume fraction] 48.7 % 37-47 [facility] - Chemistry and C hemistry - challengeOrdered By: Asad Jamison on 11-15-2022 CO2 [Moles/Vol] 27.0 mmol/L 21.0-32.0 [facility] Urea nitrogen/Creatinine [Mass ratio] 35.6 mg/mg 10-20 [facility] - Hematology and Cell countsOrdered By: Asad Jamison on 11-15-2022 Erythrocyte distribution width (RBC) [Entitic vol] 50.8 fL 35.1-43.9 [facility] Erythrocyte distribution width (RBC) [Ratio] 15.9 % 11.6-14.6 [facility] Immature granulocytes/100 WBC (Bld) 1.600 % 0.0-0.9 [facility] Comment on above: IG% - Immature Granu locytes (promyelocytes, myelocytes and metamyelocytes) > 1% indicates that a LEFT SHIFT is Present. MCH (RBC) [Entitic mass] 26.7 pg 27.0-32.0 [facility] Nucleated RBC/100 WBC (Bld) [Ratio] 0 % 0-5 [facility] MCHC Auto (RBC) [Mass/Vol]Or dered By: Asad Jamison on 11-15-2022 MCHC (RBC) [Mass/Vol] 30.4 g/dL 32-36 [facility] No Panel InformationOrdered By: Asad Jamison on 11-15-2022 Estimated GFR (MDRD) Amer 99 mL/min >60 [facility] Comment on above: GFR Calc Estimated GFR (MDRD) Non-Af Amer 81 mL/min >60 [facility] Comment on above: Non- GFR Calc Platelets bldOrdered By: Gonzales Jamison on 11-15-2022 Platelets (Bld) [#/Vol] 540 10*3/uL 150-450 [facility] Serum or plasma calcium jj urement (mass/volume)Ordered By: Asad Jamison on 11-15-2022 Calcium [Mass/Vol] 9.5 mg/dL 8.5-10.1 [facility] Serum or plasma creatinine m easurement (mass/volume)Ordered By: Asad Jamison on 11-15-2022 Creatinine [Mass/Vol] 0.76 mg/dL 0.55-1.02 [facility] Comment on above: The validity of the calculated GFR & GFRAA in patients over 70 years has not been determined. Clinical correlation is essential. Serum or plasma urea nitroge n measurement (mass/volume)Ordered By: Asad Jamison on 11-15-2022 Urea nitrogen [Mass/Vol] 27 mg/dL 7-18 [facility] Thin prep Papanicolaou smear with manual screeningOrdered By: Asad Jamison on 11-15-2022 Thin prep Papanicolaou smear with manual screening 8 5-15 [facility] Absolute lymphocyte countOrd ered By: Asad Jamison on 11-01-2022 Lymphocytes Auto (Unsp spec) [#/Vol] 0.81 10*3/uL 0.83-4.51 [facility] Basophil percentageOrdered B y: Asad Jamison on 11-01-2022 Basophils/100 WBC (Bld) 1.0 % 0-1 [facility] Chloride [Moles/Vol] 107 mmol/L 98-107 [facility] Eosinophils/100 WBC (Bld) 4.8 % 0-5 [facility] Glucose [Mass/Vol] 135 mg/dL 74-106 [facility] Comment on above: Fasting Glucose resu lt greater than or equal to 126 mg/dL suggests DIABETES MELLITUS per A.D.A. criteria. Neutrophils (Bld) [#/Vol] 5.9 10*3/uL 2.0-7.7 [facility] Neutrophils/100 WBC (Bld) 73.2 % 47-70 [facility] Potassium [Moles/Vol] 3.9 mmol/L 3.5-5.1 [facility] Sodium [Moles/Vol] 141 mmol/L 136-145 [facility] WBC (Bld) [#/Vol] 8.1 10*3/uL 4.4-11.0 [facility] Blood erythrocytes count (nu mber/volume)Ordered By: Asad Jamison on 11-01-2022 RBC (Bld) [#/Vol] 5.16 10*6/uL 4.2-5.4 [facility] Blood hemoglobin measurement (mass/volume)Ordered By: Asad Jamison on 11-01-2022 Hemoglobin (Bld) [Mass/Vol] 13.3 g/dL 12.0-15.0 [facility] Blood lymphocytes/100 leukoc ytesOrdered By: Asad Jamison on 11-01-2022 Lymphocytes/100 WBC (Bld) 10.0 % 19-41 [facility] Blood monocytes/100 leukocyt esOrdered By: Asad Jamison on 11-01-2022 Monocytes/100 WBC (Bld) 9.9 % 0-10 [facility] Blood platelet mean volumeOr dered By: Asad Jamison on 11-01-2022 Platelet mean volume (Bld) [Entitic vol] 8.9 fL 6.2-12.0 [facility] Determination of erythrocyte mean corpuscular volume (MCV)Ordered By: Asad Jamison on 11-01-2022 MCV (RBC) [Entitic vol] 87.4 fL 81-99 [facility] Hematocrit Auto (Bld) [Volum e fraction]Ordered By: Asad Jamison on 11-01-2022 Hematocrit (Bld) [Volume fraction] 45.1 % 37-47 [facility] - Chemistry and C hemistry - challengeOrdered By: Asad Jamison on 11-01-2022 CO2 [Moles/Vol] 25.0 mmol/L 21.0-32.0 [facility] Urea nitrogen/Creatinine [Mass ratio] 32.7 mg/mg 10-20 [facility] - Hematology and Cell countsOrdered By: Asad Jamison on 11-01-2022 Erythrocyte distribution width (RBC) [Entitic vol] 47.9 fL 35.1-43.9 [facility] Erythrocyte distribution width (RBC) [Ratio] 15.1 % 11.6-14.6 [facility] Immature granulocytes/100 WBC (Bld) 1.100 % 0.0-0.9 [facility] Comment on above: IG% - Immature Granu locytes (promyelocytes, myelocytes and metamyelocytes) > 1% indicates that a LEFT SHIFT is Present. MCH (RBC) [Entitic mass] 25.8 pg 27.0-32.0 [facility] Nucleated RBC/100 WBC (Bld) [Ratio] 0 % 0-5 [facility] MCHC Auto (RBC) [Mass/Vol]Or dered By: Asad Jamison on 11-01-2022 MCHC (RBC) [Mass/Vol] 29.5 g/dL 32-36 [facility] No Panel InformationOrdered By: Asad Jamison on 11-01-2022 Estimated GFR (MDRD) Amer 108 mL/min >60 [facility] Comment on above: GFR Calc Estimated GFR (MDRD) Non-Af Amer 89 mL/min >60 [facility] Comment on above: Non- GFR Calc Platelets bldOrdered By: Gonzales Jamison on 11-01-2022 Platelets (Bld) [#/Vol] 467 10*3/uL 150-450 [facility] Serum or plasma calcium jj urement (mass/volume)Ordered By: Asad Jamison on 11-01-2022 Calcium [Mass/Vol] 9.3 mg/dL 8.5-10.1 [facility] Serum or plasma creatinine m easurement (mass/volume)Ordered By: Asad Jamison on 11-01-2022 Creatinine [Mass/Vol] 0.70 mg/dL 0.55-1.02 [facility] Comment on above: The validity of the calculated GFR & GFRAA in patients over 70 years has not been determined. Clinical correlation is essential. Serum or plasma urea nitroge n measurement (mass/volume)Ordered By: Asad Jamison on 11-01-2022 Urea nitrogen [Mass/Vol] 23 mg/dL 7-18 [facility] Thin prep Papanicolaou smear with manual screeningOrdered By: Asad Jamison on 11-01-2022 Thin prep Papanicolaou smear with manual screening 9 5-15 [facility] Absolute lymphocyte countOrd ered By: Asad Jamison on 10-18-2022 Lymphocytes Auto (Unsp spec) [#/Vol] 1.14 10*3/uL 0.83-4.51 [facility] Basophil percentageOrdered B y: Asad Jamison on 10-18-2022 Basophils/100 WBC (Bld) 1.1 % 0-1 [facility] Chloride [Moles/Vol] 110 mmol/L 98-107 [facility] Eosinophils/100 WBC (Bld) 5.0 % 0-5 [facility] Glucose [Mass/Vol] 179 mg/dL 74-106 [facility] Comment on above: Fasting Glucose resu lt greater than or equal to 126 mg/dL suggests DIABETES MELLITUS per A.D.A. criteria. Neutrophils (Bld) [#/Vol] 6.5 10*3/uL 2.0-7.7 [facility] Neutrophils/100 WBC (Bld) 69.3 % 47-70 [facility] Potassium [Moles/Vol] 4.0 mmol/L 3.5-5.1 [facility] Sodium [Moles/Vol] 140 mmol/L 136-145 [facility] WBC (Bld) [#/Vol] 9.4 10*3/uL 4.4-11.0 [facility] Blood erythrocytes count (nu mber/volume)Ordered By: Asad Jamison on 10-18-2022 RBC (Bld) [#/Vol] 5.10 10*6/uL 4.2-5.4 [facility] Blood hemoglobin measurement (mass/volume)Ordered By: Asad Jamison on 10-18-2022 Hemoglobin (Bld) [Mass/Vol] 13.6 g/dL 12.0-15.0 [facility] Blood lymphocytes/100 leukoc ytesOrdered By: Asad Jamison on 10-18-2022 Lymphocytes/100 WBC (Bld) 12.1 % 19-41 [facility] Blood monocytes/100 leukocyt esOrdered By: Asad Jamison on 10-18-2022 Monocytes/100 WBC (Bld) 11.1 % 0-10 [facility] Blood platelet mean volumeOr dered By: Asad Jamison on 10-18-2022 Platelet mean volume (Bld) [Entitic vol] 8.6 fL 6.2-12.0 [facility] Determination of erythrocyte mean corpuscular volume (MCV)Ordered By: Asad Jamison on 10-18-2022 MCV (RBC) [Entitic vol] 87.5 fL 81-99 [facility] Hematocrit Auto (Bld) [Volum e fraction]Ordered By: Asad Jamison on 10-18-2022 Hematocrit (Bld) [Volume fraction] 44.6 % 37-47 [facility] - Chemistry and C hemistry - challengeOrdered By: Asad Jamison on 10-18-2022 CO2 [Moles/Vol] 22.0 mmol/L 21.0-32.0 [facility] Urea nitrogen/Creatinine [Mass ratio] 28.1 mg/mg 10-20 [facility] - Hematology and Cell countsOrdered By: Asad Jamison on 10-18-2022 Erythrocyte distribution width (RBC) [Entitic vol] 46.2 fL 35.1-43.9 [facility] Erythrocyte distribution width (RBC) [Ratio] 14.3 % 11.6-14.6 [facility] Immature granulocytes/100 WBC (Bld) 1.400 % 0.0-0.9 [facility] Comment on above: IG% - Immature Granu locytes (promyelocytes, myelocytes and metamyelocytes) > 1% indicates that a LEFT SHIFT is Present. MCH (RBC) [Entitic mass] 26.7 pg 27.0-32.0 [facility] Nucleated RBC/100 WBC (Bld) [Ratio] 0 % 0-5 [facility] MCHC Auto (RBC) [Mass/Vol]Or dered By: Asad Jamison on 10-18-2022 MCHC (RBC) [Mass/Vol] 30.5 g/dL 32-36 [facility] No Panel InformationOrdered By: Asad Jamison on 10-18-2022 Estimated GFR (MDRD) Amer 106 mL/min >60 [facility] Comment on above: GFR Calc Estimated GFR (MDRD) Non-Af Amer 88 mL/min >60 [facility] Comment on above: Non- GFR Calc Platelets bldOrdered By: Gonzales Jamison on 10-18-2022 Platelets (Bld) [#/Vol] 622 10*3/uL 150-450 [facility] Serum or plasma calcium jj urement (mass/volume)Ordered By: Asad Jamison on 10-18-2022 Calcium [Mass/Vol] 9.4 mg/dL 8.5-10.1 [facility] Serum or plasma creatinine m easurement (mass/volume)Ordered By: Asad Jamison on 10-18-2022 Creatinine [Mass/Vol] 0.71 mg/dL 0.55-1.02 [facility] Comment on above: The validity of the calculated GFR & GFRAA in patients over 70 years has not been determined. Clinical correlation is essential. Serum or plasma urea nitroge n measurement (mass/volume)Ordered By: Asad Jamison on 10-18-2022 Urea nitrogen [Mass/Vol] 20 mg/dL 7-18 [facility] Thin prep Papanicolaou smear with manual screeningOrdered By: Asad Jamison on 10-18-2022 Thin prep Papanicolaou smear with manual screening 8 5-15 [facility] Absolute lymphocyte countOrd ered By: Asad Jamison on 10-04-2022 Lymphocytes Auto (Unsp spec) [#/Vol] 1.09 10*3/uL 0.83-4.51 [facility] Basophil percentageOrdered B y: Asad Jamison on 10-04-2022 Basophils/100 WBC (Bld) 1.2 % 0-1 [facility] Chloride [Moles/Vol] 107 mmol/L 98-107 [facility] Eosinophils/100 WBC (Bld) 4.5 % 0-5 [facility] Glucose [Mass/Vol] 123 mg/dL 74-106 [facility] Comment on above: Fasting Glucose resu lt from 100 to 125 mg/dL suggests IMPAIRED HOMEOSTASIS per A.D.A. criteria. Neutrophils (Bld) [#/Vol] 6.5 10*3/uL 2.0-7.7 [facility] Neutrophils/100 WBC (Bld) 71.3 % 47-70 [facility] Potassium [Moles/Vol] 3.9 mmol/L 3.5-5.1 [facility] Sodium [Moles/Vol] 140 mmol/L 136-145 [facility] WBC (Bld) [#/Vol] 9.1 10*3/uL 4.4-11.0 [facility] Blood erythrocytes count (nu mber/volume)Ordered By: Asad Jamison on 10-04-2022 RBC (Bld) [#/Vol] 5.46 10*6/uL 4.2-5.4 [facility] Blood hemoglobin measurement (mass/volume)Ordered By: Asad Jamison on 10-04-2022 Hemoglobin (Bld) [Mass/Vol] 14.4 g/dL 12.0-15.0 [facility] Blood lymphocytes/100 leukoc ytesOrdered By: Asad Jamison on 10-04-2022 Lymphocytes/100 WBC (Bld) 12.0 % 19-41 [facility] Blood monocytes/100 leukocyt esOrdered By: Asad Jamison on 10-04-2022 Monocytes/100 WBC (Bld) 10.0 % 0-10 [facility] Blood platelet mean volumeOr dered By: Asad Jamison on 10-04-2022 Platelet mean volume (Bld) [Entitic vol] 8.4 fL 6.2-12.0 [facility] Determination of erythrocyte mean corpuscular volume (MCV)Ordered By: Asad Jamison on 10-04-2022 MCV (RBC) [Entitic vol] 86.1 fL 81-99 [facility] Hematocrit Auto (Bld) [Volum e fraction]Ordered By: Asad Jamison on 10-04-2022 Hematocrit (Bld) [Volume fraction] 47.0 % 37-47 [facility] - Chemistry and C hemistry - challengeOrdered By: Asad Jamison on 10-04-2022 CO2 [Moles/Vol] 25.0 mmol/L 21.0-32.0 [facility] Urea nitrogen/Creatinine [Mass ratio] 34.6 mg/mg 10-20 [facility] - Hematology and Cell countsOrdered By: Asad Jamison on 10-04-2022 Erythrocyte distribution width (RBC) [Entitic vol] 44.2 fL 35.1-43.9 [facility] Erythrocyte distribution width (RBC) [Ratio] 14.2 % 11.6-14.6 [facility] Immature granulocytes/100 WBC (Bld) 1.000 % 0.0-0.9 [facility] Comment on above: IG% - Immature Granu locytes (promyelocytes, myelocytes and metamyelocytes) > 1% indicates that a LEFT SHIFT is Present. MCH (RBC) [Entitic mass] 26.4 pg 27.0-32.0 [facility] Nucleated RBC/100 WBC (Bld) [Ratio] 0 % 0-5 [facility] MCHC Auto (RBC) [Mass/Vol]Or dered By: Asad Jamison on 10-04-2022 MCHC (RBC) [Mass/Vol] 30.6 g/dL 32-36 [facility] No Panel InformationOrdered By: Asad Jamison on 10-04-2022 Estimated GFR (MDRD) Amer 115 mL/min >60 [facility] Comment on above: GFR Calc Estimated GFR (MDRD) Non-Af Amer 95 mL/min >60 [facility] Comment on above: Non- GFR Calc Platelets bldOrdered By: Gonzales Jamison on 10-04-2022 Platelets (Bld) [#/Vol] 566 10*3/uL 150-450 [facility] Serum or plasma calcium jj urement (mass/volume)Ordered By: Asad Jamison on 10-04-2022 Calcium [Mass/Vol] 9.8 mg/dL 8.5-10.1 [facility] Serum or plasma creatinine m easurement (mass/volume)Ordered By: Asad Jamison on 10-04-2022 Creatinine [Mass/Vol] 0.66 mg/dL 0.55-1.02 [facility] Comment on above: The validity of the calculated GFR & GFRAA in patients over 70 years has not been determined. Clinical correlation is essential. Serum or plasma urea nitroge n measurement (mass/volume)Ordered By: Asad Jamison on 10-04-2022 Urea nitrogen [Mass/Vol] 23 mg/dL 7-18 [facility] Thin prep Papanicolaou smear with manual screeningOrdered By: Asad Jamison on 10-04-2022 Thin prep Papanicolaou smear with manual screening 8 5-15 [facility] Absolute lymphocyte countOrd ered By: Asad Jamison on 09-20-2022 Lymphocytes Auto (Unsp spec) [#/Vol] 1.20 10*3/uL 0.83-4.51 [facility] Basophil percentageOrdered B y: Asad Jamison on 09-20-2022 Basophils/100 WBC (Bld) 1.1 % 0-1 [facility] Chloride [Moles/Vol] 110 mmol/L 98-107 [facility] Eosinophils/100 WBC (Bld) 5.3 % 0-5 [facility] Glucose [Mass/Vol] 129 mg/dL 74-106 [facility] Comment on above: Fasting Glucose resu lt greater than or equal to 126 mg/dL suggests DIABETES MELLITUS per A.D.A. criteria. Neutrophils (Bld) [#/Vol] 7.2 10*3/uL 2.0-7.7 [facility] Neutrophils/100 WBC (Bld) 71.4 % 47-70 [facility] Potassium [Moles/Vol] 4.0 mmol/L 3.5-5.1 [facility] Sodium [Moles/Vol] 139 mmol/L 136-145 [facility] WBC (Bld) [#/Vol] 10.0 10*3/uL 4.4-11.0 [facility] Blood erythrocytes count (nu mber/volume)Ordered By: Asad Jamison on 09-20-2022 RBC (Bld) [#/Vol] 4.97 10*6/uL 4.2-5.4 [facility] Blood hemoglobin measurement (mass/volume)Ordered By: Asad Jamison on 09-20-2022 Hemoglobin (Bld) [Mass/Vol] 13.4 g/dL 12.0-15.0 [facility] Blood lymphocytes/100 leukoc ytesOrdered By: Asad Jamison on 09-20-2022 Lymphocytes/100 WBC (Bld) 12.0 % 19-41 [facility] Blood monocytes/100 leukocyt esOrdered By: Asad Jamison on 09-20-2022 Monocytes/100 WBC (Bld) 9.3 % 0-10 [facility] Blood platelet mean volumeOr dered By: Asad Jamison on 09-20-2022 Platelet mean volume (Bld) [Entitic vol] 8.7 fL 6.2-12.0 [facility] Determination of erythrocyte mean corpuscular volume (MCV)Ordered By: Asad Jamison on 09-20-2022 MCV (RBC) [Entitic vol] 88.3 fL 81-99 [facility] Hematocrit Auto (Bld) [Volum e fraction]Ordered By: Asad Jamison on 09-20-2022 Hematocrit (Bld) [Volume fraction] 43.9 % 37-47 [facility] - Chemistry and C hemistry - challengeOrdered By: Asad Jamison on 09-20-2022 CO2 [Moles/Vol] 25.0 mmol/L 21.0-32.0 [facility] Urea nitrogen/Creatinine [Mass ratio] 41.7 mg/mg 10-20 [facility] - Hematology and Cell countsOrdered By: Asad Jamison on 09-20-2022 Erythrocyte distribution width (RBC) [Entitic vol] 45.1 fL 35.1-43.9 [facility] Erythrocyte distribution width (RBC) [Ratio] 14.2 % 11.6-14.6 [facility] Immature granulocytes/100 WBC (Bld) 0.900 % 0.0-0.9 [facility] Comment on above: IG% - Immature Granu locytes (promyelocytes, myelocytes and metamyelocytes) > 1% indicates that a LEFT SHIFT is Present. MCH (RBC) [Entitic mass] 27.0 pg 27.0-32.0 [facility] Nucleated RBC/100 WBC (Bld) [Ratio] 0 % 0-5 [facility] MCHC Auto (RBC) [Mass/Vol]Or dered By: Asad Jamison on 09-20-2022 MCHC (RBC) [Mass/Vol] 30.5 g/dL 32-36 [facility] No Panel InformationOrdered By: Asad Jamison on 09-20-2022 Estimated GFR (MDRD) Amer 129 mL/min >60 [facility] Comment on above: GFR Calc Estimated GFR (MDRD) Non-Af Amer 107 mL/min >60 [facility] Comment on above: Non- GFR Calc Platelets bldOrdered By: Gonzales Jamison on 09-20-2022 Platelets (Bld) [#/Vol] 533 10*3/uL 150-450 [facility] Serum or plasma calcium jj urement (mass/volume)Ordered By: Asad Jamison on 09-20-2022 Calcium [Mass/Vol] 9.4 mg/dL 8.5-10.1 [facility] Serum or plasma creatinine m easurement (mass/volume)Ordered By: Asad Jamison on 09-20-2022 Creatinine [Mass/Vol] 0.60 mg/dL 0.55-1.02 [facility] Comment on above: The validity of the calculated GFR & GFRAA in patients over 70 years has not been determined. Clinical correlation is essential. Serum or plasma urea nitroge n measurement (mass/volume)Ordered By: Asad Jamison on 09-20-2022 Urea nitrogen [Mass/Vol] 25 mg/dL -18 [facility] Thin prep Papanicolaou smear with manual screeningOrdered By: Asad Jamison on 09-20-2022 Thin prep Papanicolaou smear with manual screening 4 5-15 [facility] Absolute lymphocyte countOrd ered By: Asad Jamison on 09-06-2022 Lymphocytes Auto (Unsp spec) [#/Vol] 0.97 10*3/uL 0.83-4.51 [facility] Basophil percentageOrdered B y: Asad Jamison on 09-06-2022 Basophils/100 WBC (Bld) 1.0 % 0-1 [facility] Chloride [Moles/Vol] 107 mmol/L 98-107 [facility] Eosinophils/100 WBC (Bld) 4.5 % 0-5 [facility] Glucose [Mass/Vol] 112 mg/dL 74-106 [facility] Comment on above: Fasting Glucose resu lt from 100 to 125 mg/dL suggests IMPAIRED HOMEOSTASIS per A.D.A. criteria. Neutrophils (Bld) [#/Vol] 6.2 10*3/uL 2.0-7.7 [facility] Neutrophils/100 WBC (Bld) 72.2 % 47-70 [facility] Potassium [Moles/Vol] 3.7 mmol/L 3.5-5.1 [facility] Sodium [Moles/Vol] 138 mmol/L 136-145 [facility] WBC (Bld) [#/Vol] 8.6 10*3/uL 4.4-11.0 [facility] Blood erythrocytes count (nu mber/volume)Ordered By: Asad Jamison on 09-06-2022 RBC (Bld) [#/Vol] 5.05 10*6/uL 4.2-5.4 [facility] Blood hemoglobin measurement (mass/volume)Ordered By: Asad Jamison on 09-06-2022 Hemoglobin (Bld) [Mass/Vol] 13.6 g/dL 12.0-15.0 [facility] Blood lymphocytes/100 leukoc ytesOrdered By: Asad Jamison on 09-06-2022 Lymphocytes/100 WBC (Bld) 11.3 % 19-41 [facility] Blood monocytes/100 leukocyt esOrdered By: Asad Jamison on 09-06-2022 Monocytes/100 WBC (Bld) 10.4 % 0-10 [facility] Blood platelet mean volumeOr dered By: Asad Jamison on 09-06-2022 Platelet mean volume (Bld) [Entitic vol] 8.4 fL 6.2-12.0 [facility] Determination of erythrocyte mean corpuscular volume (MCV)Ordered By: Asad Jamison on 09-06-2022 MCV (RBC) [Entitic vol] 87.7 fL 81-99 [facility] Hematocrit Auto (Bld) [Volum e fraction]Ordered By: Asad Jamison on 09-06-2022 Hematocrit (Bld) [Volume fraction] 44.3 % 37-47 [facility] - Chemistry and C hemistry - challengeOrdered By: Asad Jamison on 09-06-2022 CO2 [Moles/Vol] 25.0 mmol/L 21.0-32.0 [facility] Urea nitrogen/Creatinine [Mass ratio] 30.4 mg/mg 10-20 [facility] - Hematology and Cell countsOrdered By: Asad Jamison on 09-06-2022 Erythrocyte distribution width (RBC) [Entitic vol] 45.9 fL 35.1-43.9 [facility] Erythrocyte distribution width (RBC) [Ratio] 14.3 % 11.6-14.6 [facility] Immature granulocytes/100 WBC (Bld) 0.600 % 0.0-0.9 [facility] Comment on above: IG% - Immature Granu locytes (promyelocytes, myelocytes and metamyelocytes) > 1% indicates that a LEFT SHIFT is Present. MCH (RBC) [Entitic mass] 26.9 pg 27.0-32.0 [facility] Nucleated RBC/100 WBC (Bld) [Ratio] 0 % 0-5 [facility] MCHC Auto (RBC) [Mass/Vol]Or dered By: Asad Jamison on 09-06-2022 MCHC (RBC) [Mass/Vol] 30.7 g/dL 32-36 [facility] No Panel InformationOrdered By: Asad Jamison on 09-06-2022 Estimated GFR (MDRD) Amer 116 mL/min >60 [facility] Comment on above: GFR Calc Estimated GFR (MDRD) Non-Af Amer 96 mL/min >60 [facility] Comment on above: Non- GFR Calc Platelets bldOrdered By: Gonzales Jamison on 09-06-2022 Platelets (Bld) [#/Vol] 484 10*3/uL 150-450 [facility] Serum or plasma calcium jj urement (mass/volume)Ordered By: Asad Jamison on 09-06-2022 Calcium [Mass/Vol] 9.4 mg/dL 8.5-10.1 [facility] Serum or plasma creatinine m easurement (mass/volume)Ordered By: Asad Jamison on 09-06-2022 Creatinine [Mass/Vol] 0.66 mg/dL 0.55-1.02 [facility] Comment on above: The validity of the calculated GFR & GFRAA in patients over 70 years has not been determined. Clinical correlation is essential. Serum or plasma urea nitroge n measurement (mass/volume)Ordered By: Asad Jamison on 09-06-2022 Urea nitrogen [Mass/Vol] 20 mg/dL 7-18 [facility] Thin prep Papanicolaou smear with manual screeningOrdered By: Asad Jamison on 09-06-2022 Thin prep Papanicolaou smear with manual screening 6 5-15 [facility] Absolute lymphocyte countOrd ered By: Asad Jamison on 08-23-2022 Lymphocytes Auto (Unsp spec) [#/Vol] 1.01 10*3/uL 0.83-4.51 [facility] Basophil percentageOrdered B y: Asad Jamison on 08-23-2022 Basophils/100 WBC (Bld) 1.6 % 0-1 [facility] Chloride [Moles/Vol] 106 mmol/L 98-107 [facility] Eosinophils/100 WBC (Bld) 5.7 % 0-5 [facility] Glucose [Mass/Vol] 129 mg/dL 74-106 [facility] Comment on above: Fasting Glucose resu lt greater than or equal to 126 mg/dL suggests DIABETES MELLITUS per A.D.A. criteria. Neutrophils (Bld) [#/Vol] 4.6 10*3/uL 2.0-7.7 [facility] Neutrophils/100 WBC (Bld) 65.1 % 47-70 [facility] Potassium [Moles/Vol] 4.1 mmol/L 3.5-5.1 [facility] Sodium [Moles/Vol] 141 mmol/L 136-145 [facility] WBC (Bld) [#/Vol] 7.0 10*3/uL 4.4-11.0 [facility] Blood erythrocytes count (nu mber/volume)Ordered By: Asad Jamison on 08-23-2022 RBC (Bld) [#/Vol] 5.08 10*6/uL 4.2-5.4 [facility] Blood hemoglobin measurement (mass/volume)Ordered By: Asad Jamison on 08-23-2022 Hemoglobin (Bld) [Mass/Vol] 13.7 g/dL 12.0-15.0 [facility] Blood lymphocytes/100 leukoc ytesOrdered By: Asad Jamison on 08-23-2022 Lymphocytes/100 WBC (Bld) 14.4 % 19-41 [facility] Blood monocytes/100 leukocyt esOrdered By: Asad Jamison on 08-23-2022 Monocytes/100 WBC (Bld) 12.5 % 0-10 [facility] Blood platelet mean volumeOr dered By: Asad Jamison on 08-23-2022 Platelet mean volume (Bld) [Entitic vol] 9.1 fL 6.2-12.0 [facility] Determination of erythrocyte mean corpuscular volume (MCV)Ordered By: Asad Jamison on 08-23-2022 MCV (RBC) [Entitic vol] 88.4 fL 81-99 [facility] Hematocrit Auto (Bld) [Volum e fraction]Ordered By: Asad Jamison on 08-23-2022 Hematocrit (Bld) [Volume fraction] 44.9 % 37-47 [facility] - Chemistry and C hemistry - challengeOrdered By: Asad Jamison on 08-23-2022 CO2 [Moles/Vol] 26.0 mmol/L 21.0-32.0 [facility] Urea nitrogen/Creatinine [Mass ratio] 38.0 mg/mg 10-20 [facility] - Hematology and Cell countsOrdered By: Asad Jamison on 08-23-2022 Erythrocyte distribution width (RBC) [Entitic vol] 45.2 fL 35.1-43.9 [facility] Erythrocyte distribution width (RBC) [Ratio] 14.1 % 11.6-14.6 [facility] Immature granulocytes/100 WBC (Bld) 0.700 % 0.0-0.9 [facility] Comment on above: IG% - Immature Granu locytes (promyelocytes, myelocytes and metamyelocytes) > 1% indicates that a LEFT SHIFT is Present. MCH (RBC) [Entitic mass] 27.0 pg 27.0-32.0 [facility] Nucleated RBC/100 WBC (Bld) [Ratio] 0 % 0-5 [facility] MCHC Auto (RBC) [Mass/Vol]Or dered By: Asad Jamison on 08-23-2022 MCHC (RBC) [Mass/Vol] 30.5 g/dL 32-36 [facility] No Panel InformationOrdered By: Asad Jamison on 08-23-2022 Estimated GFR (MDRD) Amer 128 mL/min >60 [facility] Comment on above: GFR Calc Estimated GFR (MDRD) Non-Af Amer 106 mL/min >60 [facility] Comment on above: Non- GFR Calc Platelets bldOrdered By: Gonzales Jamison on 08-23-2022 Platelets (Bld) [#/Vol] 504 10*3/uL 150-450 [facility] Serum or plasma calcium jj urement (mass/volume)Ordered By: Asad Jamison on 08-23-2022 Calcium [Mass/Vol] 9.5 mg/dL 8.5-10.1 [facility] Serum or plasma creatinine m easurement (mass/volume)Ordered By: Asad Jamison on 08-23-2022 Creatinine [Mass/Vol] 0.60 mg/dL 0.55-1.02 [facility] Comment on above: The validity of the calculated GFR & GFRAA in patients over 70 years has not been determined. Clinical correlation is essential. Serum or plasma urea nitroge n measurement (mass/volume)Ordered By: Asad Jamison on 08-23-2022 Urea nitrogen [Mass/Vol] 23 mg/dL 7-18 [facility] Thin prep Papanicolaou smear with manual screeningOrdered By: Asad Jamison on 08-23-2022 Thin prep Papanicolaou smear with manual screening 9 5-15 [facility] Absolute lymphocyte countOrd ered By: Breanne Ruiz on 08-09-2022 Lymphocytes Auto (Unsp spec) [#/Vol] 1.01 10*3/uL 0.83-4.51 [facility] Basophil percentageOrdered B y: Breanne Ruiz on 08-09-2022 Basophils/100 WBC (Bld) 1.0 % 0-1 [facility] Chloride [Moles/Vol] 106 mmol/L 98-107 [facility] Eosinophils/100 WBC (Bld) 5.8 % 0-5 [facility] Glucose [Mass/Vol] 117 mg/dL 74-106 [facility] Comment on above: Fasting Glucose resu lt from 100 to 125 mg/dL suggests IMPAIRED HOMEOSTASIS per A.D.A. criteria. Neutrophils (Bld) [#/Vol] 5.8 10*3/uL 2.0-7.7 [facility] Neutrophils/100 WBC (Bld) 69.6 % 47-70 [facility] Potassium [Moles/Vol] 4.1 mmol/L 3.5-5.1 [facility] Comment on above: Slight Hemolysis, Re sult may be falsely increased. Sodium [Moles/Vol] 138 mmol/L 136-145 [facility] WBC (Bld) [#/Vol] 8.3 10*3/uL 4.4-11.0 [facility] Blood erythrocytes count (nu mber/volume)Ordered By: Breanne Ruiz on 08-09-2022 RBC (Bld) [#/Vol] 4.96 10*6/uL 4.2-5.4 [facility] Blood hemoglobin measurement (mass/volume)Ordered By: Breanne Ruiz on 08-09-2022 Hemoglobin (Bld) [Mass/Vol] 13.3 g/dL 12.0-15.0 [facility] Blood lymphocytes/100 leukoc ytesOrdered By: Breanne Ruiz on 08-09-2022 Lymphocytes/100 WBC (Bld) 12.2 % 19-41 [facility] Blood monocytes/100 leukocyt esOrdered By: vannessa Ruiz on 08-09-2022 Monocytes/100 WBC (Bld) 10.8 % 0-10 [facility] Blood platelet mean volumeOr dered By: Breanne Ruiz on 08-09-2022 Platelet mean volume (Bld) [Entitic vol] 9.0 fL 6.2-12.0 [facility] Determination of erythrocyte mean corpuscular volume (MCV)Ordered By: Breanne Ruiz on 08-09-2022 MCV (RBC) [Entitic vol] 89.3 fL 81-99 [facility] Hematocrit Auto (Bld) [Volum e fraction]Ordered By: Breanne Ruiz on 08-09-2022 Hematocrit (Bld) [Volume fraction] 44.3 % 37-47 [facility] - Chemistry and C hemistry - challengeOrdered By: Breanne Ruiz on 08-09-2022 CO2 [Moles/Vol] 23.0 mmol/L 21.0-32.0 [facility] Urea nitrogen/Creatinine [Mass ratio] 38.2 mg/mg 10-20 [facility] - Hematology and Cell countsOrdered By: Breanne Ruiz on 08-09-2022 Erythrocyte distribution width (RBC) [Entitic vol] 46.2 fL 35.1-43.9 [facility] Erythrocyte distribution width (RBC) [Ratio] 14.2 % 11.6-14.6 [facility] Immature granulocytes/100 WBC (Bld) 0.600 % 0.0-0.9 [facility] Comment on above: IG% - Immature Granu locytes (promyelocytes, myelocytes and metamyelocytes) > 1% indicates that a LEFT SHIFT is Present. MCH (RBC) [Entitic mass] 26.8 pg 27.0-32.0 [facility] Nucleated RBC/100 WBC (Bld) [Ratio] 0 % 0-5 [facility] MCHC Auto (RBC) [Mass/Vol]Or dered By: Breanne Ruiz on 08-09-2022 MCHC (RBC) [Mass/Vol] 30.0 g/dL 32-36 [facility] No Panel InformationOrdered By: Breanne Ruiz on 08-09-2022 Estimated GFR (MDRD) Amer 122 mL/min >60 [facility] Comment on above: GFR Calc Estimated GFR (MDRD) Non-Af Amer 101 mL/min >60 [facility] Comment on above: Non- GFR Calc Platelets bldOrdered By: Prashant Ruiz on 08-09-2022 Platelets (Bld) [#/Vol] 463 10*3/uL 150-450 [facility] Serum or plasma calcium jj urement (mass/volume)Ordered By: Breanne Ruiz on 08-09-2022 Calcium [Mass/Vol] 9.5 mg/dL 8.5-10.1 [facility] Serum or plasma creatinine m easurement (mass/volume)Ordered By: Breanne Ruiz on 08-09-2022 Creatinine [Mass/Vol] 0.63 mg/dL 0.55-1.02 [facility] Comment on above: The validity of the calculated GFR & GFRAA in patients over 70 years has not been determined. Clinical correlation is essential. Serum or plasma urea nitroge n measurement (mass/volume)Ordered By: Breanne Ruiz on 08-09-2022 Urea nitrogen [Mass/Vol] 24 mg/dL 7-18 [facility] Thin prep Papanicolaou smear with manual screeningOrdered By: Breanne Ruiz on 08-09-2022 Thin prep Papanicolaou smear with manual screening 9 5-15 [facility] Absolute lymphocyte countOrd ered By: Breanne Ruiz on 07-26-2022 Lymphocytes Auto (Unsp spec) [#/Vol] 1.12 10*3/uL 0.83-4.51 [facility] Basophil percentageOrdered B y: Elioadalbertolalitachetan Kirklandmichaelbeverly on 07-26-2022 Basophils/100 WBC (Bld) 1.7 % 0-1 [facility] Chloride [Moles/Vol] 109 mmol/L 98-107 [facility] Eosinophils/100 WBC (Bld) 6.3 % 0-5 [facility] Glucose [Mass/Vol] 110 mg/dL 74-106 [facility] Comment on above: Fasting Glucose resu lt from 100 to 125 mg/dL suggests IMPAIRED HOMEOSTASIS per A.D.A. criteria. Neutrophils (Bld) [#/Vol] 4.2 10*3/uL 2.0-7.7 [facility] Neutrophils/100 WBC (Bld) 62.5 % 47-70 [facility] Potassium [Moles/Vol] 4.1 mmol/L 3.5-5.1 [facility] Sodium [Moles/Vol] 143 mmol/L 136-145 [facility] WBC (Bld) [#/Vol] 6.6 10*3/uL 4.4-11.0 [facility] Blood erythrocytes count (nu mber/volume)Ordered By: Breanne Ruiz on 07-26-2022 RBC (Bld) [#/Vol] 4.98 10*6/uL 4.2-5.4 [facility] Blood hemoglobin measurement (mass/volume)Ordered By: Breanne Ruiz on 07-26-2022 Hemoglobin (Bld) [Mass/Vol] 13.4 g/dL 12.0-15.0 [facility] Blood lymphocytes/100 leukoc ytesOrdered By: Breanne Ruiz on 07-26-2022 Lymphocytes/100 WBC (Bld) 16.9 % 19-41 [facility] Blood monocytes/100 leukocyt esOrdered By: Breanne Ruiz on 07-26-2022 Monocytes/100 WBC (Bld) 11.5 % 0-10 [facility] Blood platelet mean volumeOr dered By: Breanne Ruiz on 07-26-2022 Platelet mean volume (Bld) [Entitic vol] 8.9 fL 6.2-12.0 [facility] Determination of erythrocyte mean corpuscular volume (MCV)Ordered By: Breanne Ruiz on 07-26-2022 MCV (RBC) [Entitic vol] 90.6 fL 81-99 [facility] Hematocrit Auto (Bld) [Volum e fraction]Ordered By: Breanne Ruiz on 07-26-2022 Hematocrit (Bld) [Volume fraction] 45.1 % 37-47 [facility] - Chemistry and C hemistry - challengeOrdered By: Breanne Ruiz on 07-26-2022 CO2 [Moles/Vol] 25.0 mmol/L 21.0-32.0 [facility] Urea nitrogen/Creatinine [Mass ratio] 48.5 mg/mg 10-20 [facility] - Hematology and Cell countsOrdered By: Breanne Ruiz on 07-26-2022 Erythrocyte distribution width (RBC) [Entitic vol] 48.2 fL 35.1-43.9 [facility] Erythrocyte distribution width (RBC) [Ratio] 14.5 % 11.6-14.6 [facility] Immature granulocytes/100 WBC (Bld) 1.100 % 0.0-0.9 [facility] Comment on above: IG% - Immature Granu locytes (promyelocytes, myelocytes and metamyelocytes) > 1% indicates that a LEFT SHIFT is Present. MCH (RBC) [Entitic mass] 26.9 pg 27.0-32.0 [facility] Nucleated RBC/100 WBC (Bld) [Ratio] 0 % 0-5 [facility] MCHC Auto (RBC) [Mass/Vol]Or dered By: Breanne Ruiz on 07-26-2022 MCHC (RBC) [Mass/Vol] 29.7 g/dL 32-36 [facility] No Panel InformationOrdered By: Breanne Ruiz on 07-26-2022 Estimated GFR (MDRD) Amer 116 mL/min >60 [facility] Comment on above: GFR Calc Estimated GFR (MDRD) Non-Af Amer 96 mL/min >60 [facility] Comment on above: Non- GFR Calc Platelets bldOrdered By: Prashant Ruiz on 07-26-2022 Platelets (Bld) [#/Vol] 464 10*3/uL 150-450 [facility] Serum or plasma calcium jj urement (mass/volume)Ordered By: Breanne Ruiz on 07-26-2022 Calcium [Mass/Vol] 9.7 mg/dL 8.5-10.1 [facility] Serum or plasma creatinine m easurement (mass/volume)Ordered By: Breanne Ruiz on 07-26-2022 Creatinine [Mass/Vol] 0.66 mg/dL 0.55-1.02 [facility] Comment on above: The validity of the calculated GFR & GFRAA in patients over 70 years has not been determined. Clinical correlation is essential. Serum or plasma urea nitroge n measurement (mass/volume)Ordered By: Breanne Ruiz on 07-26-2022 Urea nitrogen [Mass/Vol] 32 mg/dL 7-18 [facility] Thin prep Papanicolaou smear with manual screeningOrdered By: Breanne Ruiz on 07-26-2022 Thin prep Papanicolaou smear with manual screening 9 5-15 [facility] Whole blood hemoglobin A1c/t otal hemoglobin ratio (mass fraction)Ordered By: Breanne Ruiz on 07-13-2022 HbA1c (Bld) [Mass fraction] 5.8 % 3.8-5.6 [facility] Comment on above: Normal < 5.7 % Predi abetic 5.7 - 6.4 % Diabetic >or= 6.5 % Please note range changes. Absolute lymphocyte countOrd ered By: Asad Jamison on 07-12-2022 Lymphocytes Auto (Unsp spec) [#/Vol] 1.16 10*3/uL 0.83-4.51 [facility] Basophil percentageOrdered B y: Asad Jamison on 07-12-2022 Basophils/100 WBC (Bld) 1.4 % 0-1 [facility] Chloride [Moles/Vol] 107 mmol/L 98-107 [facility] Eosinophils/100 WBC (Bld) 4.3 % 0-5 [facility] Glucose [Mass/Vol] 148 mg/dL 74-106 [facility] Comment on above: Fasting Glucose resu lt greater than or equal to 126 mg/dL suggests DIABETES MELLITUS per A.D.A. criteria. Neutrophils (Bld) [#/Vol] 5.3 10*3/uL 2.0-7.7 [facility] Neutrophils/100 WBC (Bld) 69.0 % 47-70 [facility] Potassium [Moles/Vol] 3.9 mmol/L 3.5-5.1 [facility] Sodium [Moles/Vol] 142 mmol/L 136-145 [facility] WBC (Bld) [#/Vol] 7.7 10*3/uL 4.4-11.0 [facility] Blood erythrocytes count (nu mber/volume)Ordered By: Asad Jamison on 07-12-2022 RBC (Bld) [#/Vol] 4.99 10*6/uL 4.2-5.4 [facility] Blood hemoglobin measurement (mass/volume)Ordered By: Asad Jamison on 07-12-2022 Hemoglobin (Bld) [Mass/Vol] 13.4 g/dL 12.0-15.0 [facility] Blood lymphocytes/100 leukoc ytesOrdered By: Asad Jamison on 07-12-2022 Lymphocytes/100 WBC (Bld) 15.0 % 19-41 [facility] Blood monocytes/100 leukocyt esOrdered By: Asad Jamison on 07-12-2022 Monocytes/100 WBC (Bld) 9.8 % 0-10 [facility] Blood platelet mean volumeOr dered By: Asad Jamison on 07-12-2022 Platelet mean volume (Bld) [Entitic vol] 8.6 fL 6.2-12.0 [facility] Determination of erythrocyte mean corpuscular volume (MCV)Ordered By: Asad Jamison on 07-12-2022 MCV (RBC) [Entitic vol] 88.4 fL 81-99 [facility] Hematocrit Auto (Bld) [Volum e fraction]Ordered By: Asad Jamison on 07-12-2022 Hematocrit (Bld) [Volume fraction] 44.1 % 37-47 [facility] - Chemistry and C hemistry - challengeOrdered By: Asad Jamison on 07-12-2022 CO2 [Moles/Vol] 27.0 mmol/L 21.0-32.0 [facility] Urea nitrogen/Creatinine [Mass ratio] 36.2 mg/mg 10-20 [facility] - Hematology and Cell countsOrdered By: Asad Jamison on 07-12-2022 Erythrocyte distribution width (RBC) [Entitic vol] 46.5 fL 35.1-43.9 [facility] Erythrocyte distribution width (RBC) [Ratio] 14.4 % 11.6-14.6 [facility] Immature granulocytes/100 WBC (Bld) 0.500 % 0.0-0.9 [facility] Comment on above: IG% - Immature Granu locytes (promyelocytes, myelocytes and metamyelocytes) > 1% indicates that a LEFT SHIFT is Present. MCH (RBC) [Entitic mass] 26.9 pg 27.0-32.0 [facility] Nucleated RBC/100 WBC (Bld) [Ratio] 0 % 0-5 [facility] MCHC Auto (RBC) [Mass/Vol]Or dered By: Asad Jamison on 07-12-2022 MCHC (RBC) [Mass/Vol] 30.4 g/dL 32-36 [facility] No Panel InformationOrdered By: Asad Jamison on 07-12-2022 Estimated GFR (MDRD) Amer 101 mL/min >60 [facility] Comment on above: GFR Calc Estimated GFR (MDRD) Non-Af Amer 83 mL/min >60 [facility] Comment on above: Non- GFR Calc Platelets bldOrdered By: Gonzales Jamison on 07-12-2022 Platelets (Bld) [#/Vol] 491 10*3/uL 150-450 [facility] Serum or plasma calcium jj urement (mass/volume)Ordered By: Asad Jamison on 07-12-2022 Calcium [Mass/Vol] 9.7 mg/dL 8.5-10.1 [facility] Serum or plasma creatinine m easurement (mass/volume)Ordered By: Asad Jamison on 07-12-2022 Creatinine [Mass/Vol] 0.74 mg/dL 0.55-1.02 [facility] Comment on above: The validity of the calculated GFR & GFRAA in patients over 70 years has not been determined. Clinical correlation is essential. Serum or plasma urea nitroge n measurement (mass/volume)Ordered By: Asad Jamison on 07-12-2022 Urea nitrogen [Mass/Vol] 27 mg/dL 7-18 [facility] Thin prep Papanicolaou smear with manual screeningOrdered By: Asad Jamison on 07-12-2022 Thin prep Papanicolaou smear with manual screening 8 5-15 [facility] Absolute lymphocyte countOrd ered By: Asad Jamison on 06-28-2022 Lymphocytes Auto (Unsp spec) [#/Vol] 1.41 10*3/uL 0.83-4.51 [facility] Basophil percentageOrdered B y: Asad Jamison on 06-28-2022 Basophils/100 WBC (Bld) 1.7 % 0-1 [facility] Chloride [Moles/Vol] 108 mmol/L 98-107 [facility] Eosinophils/100 WBC (Bld) 6.8 % 0-5 [facility] Glucose [Mass/Vol] 117 mg/dL 74-106 [facility] Comment on above: Fasting Glucose resu lt from 100 to 125 mg/dL suggests IMPAIRED HOMEOSTASIS per A.D.A. criteria. Neutrophils (Bld) [#/Vol] 3.8 10*3/uL 2.0-7.7 [facility] Neutrophils/100 WBC (Bld) 56.9 % 47-70 [facility] Potassium [Moles/Vol] 4.0 mmol/L 3.5-5.1 [facility] Sodium [Moles/Vol] 142 mmol/L 136-145 [facility] WBC (Bld) [#/Vol] 6.7 10*3/uL 4.4-11.0 [facility] Blood erythrocytes count (nu mber/volume)Ordered By: Asad Jamison on 06-28-2022 RBC (Bld) [#/Vol] 4.72 10*6/uL 4.2-5.4 [facility] Blood hemoglobin measurement (mass/volume)Ordered By: Asad Jamison on 06-28-2022 Hemoglobin (Bld) [Mass/Vol] 12.8 g/dL 12.0-15.0 [facility] Blood lymphocytes/100 leukoc ytesOrdered By: Asad Jamison on 06-28-2022 Lymphocytes/100 WBC (Bld) 21.2 % 19-41 [facility] Blood monocytes/100 leukocyt esOrdered By: Asad Jamison on 06-28-2022 Monocytes/100 WBC (Bld) 12.5 % 0-10 [facility] Blood platelet mean volumeOr dered By: Asad Jamison on 06-28-2022 Platelet mean volume (Bld) [Entitic vol] 9.0 fL 6.2-12.0 [facility] Determination of erythrocyte mean corpuscular volume (MCV)Ordered By: Asad Jamison on 06-28-2022 MCV (RBC) [Entitic vol] 90.7 fL 81-99 [facility] Hematocrit Auto (Bld) [Volum e fraction]Ordered By: Asad Jamison on 06-28-2022 Hematocrit (Bld) [Volume fraction] 42.8 % 37-47 [facility] - Chemistry and C hemistry - challengeOrdered By: Asad Jamison on 06-28-2022 CO2 [Moles/Vol] 24.0 mmol/L 21.0-32.0 [facility] Urea nitrogen/Creatinine [Mass ratio] 39.1 mg/mg 10-20 [facility] - Hematology and Cell countsOrdered By: Asad Jamison on 06-28-2022 Erythrocyte distribution width (RBC) [Entitic vol] 48.6 fL 35.1-43.9 [facility] Erythrocyte distribution width (RBC) [Ratio] 14.6 % 11.6-14.6 [facility] Immature granulocytes/100 WBC (Bld) 0.900 % 0.0-0.9 [facility] Comment on above: IG% - Immature Granu locytes (promyelocytes, myelocytes and metamyelocytes) > 1% indicates that a LEFT SHIFT is Present. MCH (RBC) [Entitic mass] 27.1 pg 27.0-32.0 [facility] Nucleated RBC/100 WBC (Bld) [Ratio] 0 % 0-5 [facility] MCHC Auto (RBC) [Mass/Vol]Or dered By: Asad Jamison on 06-28-2022 MCHC (RBC) [Mass/Vol] 29.9 g/dL 32-36 [facility] No Panel InformationOrdered By: Asad Jamison on 06-28-2022 Estimated GFR (MDRD) Amer 115 mL/min >60 [facility] Comment on above: GFR Calc Estimated GFR (MDRD) Non-Af Amer 95 mL/min >60 [facility] Comment on above: Non- GFR Calc Platelets bldOrdered By: Gonzales Jamison on 06-28-2022 Platelets (Bld) [#/Vol] 481 10*3/uL 150-450 [facility] Serum or plasma calcium jj urement (mass/volume)Ordered By: Asad Jamison on 06-28-2022 Calcium [Mass/Vol] 9.4 mg/dL 8.5-10.1 [facility] Serum or plasma creatinine m easurement (mass/volume)Ordered By: Asad Jamison on 06-28-2022 Creatinine [Mass/Vol] 0.66 mg/dL 0.55-1.02 [facility] Comment on above: The validity of the calculated GFR & GFRAA in patients over 70 years has not been determined. Clinical correlation is essential. Serum or plasma urea nitroge n measurement (mass/volume)Ordered By: Asad Jamison on 06-28-2022 Urea nitrogen [Mass/Vol] 26 mg/dL 7-18 [facility] Thin prep Papanicolaou smear with manual screeningOrdered By: Asad Jamison on 06-28-2022 Thin prep Papanicolaou smear with manual screening 10 5-15 [facility] Absolute lymphocyte countOrd ered By: Asad Jamison on 06-14-2022 Lymphocytes Auto (Unsp spec) [#/Vol] 1.27 10*3/uL 0.83-4.51 [facility] Basophil percentageOrdered B y: Asad Jamison on 06-14-2022 Basophils/100 WBC (Bld) 1.3 % 0-1 [facility] Chloride [Moles/Vol] 111 mmol/L 98-107 [facility] Eosinophils/100 WBC (Bld) 3.9 % 0-5 [facility] Glucose [Mass/Vol] 123 mg/dL 74-106 [facility] Comment on above: Fasting Glucose resu lt from 100 to 125 mg/dL suggests IMPAIRED HOMEOSTASIS per A.D.A. criteria. Neutrophils (Bld) [#/Vol] 4.5 10*3/uL 2.0-7.7 [facility] Neutrophils/100 WBC (Bld) 63.0 % 47-70 [facility] Potassium [Moles/Vol] 4.2 mmol/L 3.5-5.1 [facility] Sodium [Moles/Vol] 143 mmol/L 136-145 [facility] WBC (Bld) [#/Vol] 7.2 10*3/uL 4.4-11.0 [facility] Blood erythrocytes count (nu mber/volume)Ordered By: Asad Jamison on 06-14-2022 RBC (Bld) [#/Vol] 4.60 10*6/uL 4.2-5.4 [facility] Blood hemoglobin measurement (mass/volume)Ordered By: Asad Jamison on 06-14-2022 Hemoglobin (Bld) [Mass/Vol] 12.8 g/dL 12.0-15.0 [facility] Blood lymphocytes/100 leukoc ytesOrdered By: Asad Jamison on 06-14-2022 Lymphocytes/100 WBC (Bld) 17.7 % 19-41 [facility] Blood monocytes/100 leukocyt esOrdered By: Asad Jamison on 06-14-2022 Monocytes/100 WBC (Bld) 13.4 % 0-10 [facility] Blood platelet mean volumeOr dered By: Asad Jamison on 06-14-2022 Platelet mean volume (Bld) [Entitic vol] 9.0 fL 6.2-12.0 [facility] Determination of erythrocyte mean corpuscular volume (MCV)Ordered By: Asad Jamison on 06-14-2022 MCV (RBC) [Entitic vol] 90.4 fL 81-99 [facility] Hematocrit Auto (Bld) [Volum e fraction]Ordered By: Asad Jamison on 06-14-2022 Hematocrit (Bld) [Volume fraction] 41.6 % 37-47 [facility] - Chemistry and C hemistry - challengeOrdered By: Asad Jamison on 06-14-2022 CO2 [Moles/Vol] 26.0 mmol/L 21.0-32.0 [facility] Urea nitrogen/Creatinine [Mass ratio] 49.2 mg/mg 10-20 [facility] - Hematology and Cell countsOrdered By: Asad Jamison on 06-14-2022 Erythrocyte distribution width (RBC) [Entitic vol] 49.1 fL 35.1-43.9 [facility] Erythrocyte distribution width (RBC) [Ratio] 14.7 % 11.6-14.6 [facility] Immature granulocytes/100 WBC (Bld) 0.700 % 0.0-0.9 [facility] Comment on above: IG% - Immature Granu locytes (promyelocytes, myelocytes and metamyelocytes) > 1% indicates that a LEFT SHIFT is Present. MCH (RBC) [Entitic mass] 27.8 pg 27.0-32.0 [facility] Nucleated RBC/100 WBC (Bld) [Ratio] 0 % 0-5 [facility] MCHC Auto (RBC) [Mass/Vol]Or dered By: Asad Jamison on 06-14-2022 MCHC (RBC) [Mass/Vol] 30.8 g/dL 32-36 [facility] No Panel InformationOrdered By: Asad Jamison on 06-14-2022 Estimated GFR (MDRD) Amer 118 mL/min >60 [facility] Comment on above: GFR Calc Estimated GFR (MDRD) Non-Af Amer 97 mL/min >60 [facility] Comment on above: Non- GFR Calc Platelets bldOrdered By: Gonzales Jamison on 06-14-2022 Platelets (Bld) [#/Vol] 536 10*3/uL 150-450 [facility] Serum or plasma calcium jj urement (mass/volume)Ordered By: Asad Jamison on 06-14-2022 Calcium [Mass/Vol] 9.5 mg/dL 8.5-10.1 [facility] Serum or plasma creatinine m easurement (mass/volume)Ordered By: Asad Jamison on 06-14-2022 Creatinine [Mass/Vol] 0.65 mg/dL 0.55-1.02 [facility] Comment on above: The validity of the calculated GFR & GFRAA in patients over 70 years has not been determined. Clinical correlation is essential. Serum or plasma urea nitroge n measurement (mass/volume)Ordered By: Asad Jamison on 06-14-2022 Urea nitrogen [Mass/Vol] 32 mg/dL 7-18 [facility] Thin prep Papanicolaou smear with manual screeningOrdered By: Asad Jamison on 06-14-2022 Thin prep Papanicolaou smear with manual screening 6 5-15 [facility] Basophil percentageOrdered B y: Breanne Ruiz on 06-03-2022 Chloride [Moles/Vol] 106 mmol/L 98-107 [facility] Glucose [Mass/Vol] 116 mg/dL 74-106 [facility] Comment on above: Fasting Glucose resu lt from 100 to 125 mg/dL suggests IMPAIRED HOMEOSTASIS per A.D.A. criteria. Potassium [Moles/Vol] 4.1 mmol/L 3.5-5.1 [facility] Sodium [Moles/Vol] 139 mmol/L 136-145 [facility] - Chemistry and C hemistry - challengeOrdered By: Breanne Ruiz on 06-03-2022 CO2 [Moles/Vol] 26.0 mmol/L 21.0-32.0 [facility] Urea nitrogen/Creatinine [Mass ratio] 38.7 mg/mg 10-20 [facility] No Panel InformationOrdered By: Breanne Ruiz on 06-03-2022 Estimated GFR (MDRD) Amer 138 mL/min >60 [facility] Comment on above: GFR Calc Estimated GFR (MDRD) Non-Af Amer 114 mL/min >60 [facility] Comment on above: Non- GFR Calc Serum or plasma calcium jj urement (mass/volume)Ordered By: Breanne Ruiz on 06-03-2022 Calcium [Mass/Vol] 9.7 mg/dL 8.5-10.1 [facility] Serum or plasma creatinine m easurement (mass/volume)Ordered By: Breanne Ruiz on 06-03-2022 Creatinine [Mass/Vol] 0.57 mg/dL 0.55-1.02 [facility] Comment on above: The validity of the calculated GFR & GFRAA in patients over 70 years has not been determined. Clinical correlation is essential. Serum or plasma urea nitroge n measurement (mass/volume)Ordered By: Breanne Ruiz on 06-03-2022 Urea nitrogen [Mass/Vol] 22 mg/dL 7-18 [facility] Thin prep Papanicolaou smear with manual screeningOrdered By: Eliovannessa Ruiz on 06-03-2022 Thin prep Papanicolaou smear with manual screening 7 5-15 [facility] Basophil percentageOrdered B y: Breanne Ruiz on 06-01-2022 Potassium [Moles/Vol] 3.9 mmol/L 3.5-5.1 [facility] Absolute lymphocyte countOrd ered By: Abbielalitachetan Kirklandmichaelbeverly on 05-31-2022 Lymphocytes Auto (Unsp spec) [#/Vol] 1.39 10*3/uL 0.83-4.51 [facility] Basophil percentageOrdered B y: Breanne Isaelhussain on 05-31-2022 Basophils/100 WBC (Bld) 1.0 % 0-1 [facility] Chloride [Moles/Vol] 106 mmol/L 98-107 [facility] Eosinophils/100 WBC (Bld) 4.6 % 0-5 [facility] Glucose [Mass/Vol] 74 mg/dL 74-106 [facility] Neutrophils (Bld) [#/Vol] 7.3 10*3/uL 2.0-7.7 [facility] Neutrophils/100 WBC (Bld) 69.9 % 47-70 [facility] Potassium [Moles/Vol] 4.0 mmol/L 3.5-5.1 [facility] Sodium [Moles/Vol] 141 mmol/L 136-145 [facility] WBC (Bld) [#/Vol] 10.4 10*3/uL 4.4-11.0 [facility] Blood erythrocytes count (nu mber/volume)Ordered By: Breanne Ruiz on 05-31-2022 RBC (Bld) [#/Vol] 4.49 10*6/uL 4.2-5.4 [facility] Blood hemoglobin measurement (mass/volume)Ordered By: Breanne Ruiz on 05-31-2022 Hemoglobin (Bld) [Mass/Vol] 12.5 g/dL 12.0-15.0 [facility] Blood lymphocytes/100 leukoc ytesOrdered By: Breanne Ruiz on 05-31-2022 Lymphocytes/100 WBC (Bld) 13.3 % 19-41 [facility] Blood monocytes/100 leukocyt esOrdered By: Breanne Ruiz on 05-31-2022 Monocytes/100 WBC (Bld) 10.0 % 0-10 [facility] Blood platelet mean volumeOr dered By: Breanne Ruiz on 05-31-2022 Platelet mean volume (Bld) [Entitic vol] 8.8 fL 6.2-12.0 [facility] Culture, urineOrdered By: Elio Ruiz on 05-31-2022 Bacteria identified Cx Nom (U) Escherichia coli [facility] Determination of erythrocyte mean corpuscular volume (MCV)Ordered By: Breanne Ruiz on 05-31-2022 MCV (RBC) [Entitic vol] 91.3 fL 81-99 [facility] Hematocrit Auto (Bld) [Volum e fraction]Ordered By: Breanne Ruiz on 05-31-2022 Hematocrit (Bld) [Volume fraction] 41.0 % 37-47 [facility] - Chemistry and C hemistry - challengeOrdered By: adalbertoduckchetan Ruiz on 05-31-2022 CO2 [Moles/Vol] 25.0 mmol/L 21.0-32.0 [facility] Urea nitrogen/Creatinine [Mass ratio] 43.0 mg/mg 10-20 [facility] - Hematology and Cell countsOrdered By: Breanne Ruiz on 05-31-2022 Erythrocyte distribution width (RBC) [Entitic vol] 49.5 fL 35.1-43.9 [facility] Erythrocyte distribution width (RBC) [Ratio] 14.6 % 11.6-14.6 [facility] Immature granulocytes/100 WBC (Bld) 1.200 % 0.0-0.9 [facility] Comment on above: IG% - Immature Granu locytes (promyelocytes, myelocytes and metamyelocytes) > 1% indicates that a LEFT SHIFT is Present. MCH (RBC) [Entitic mass] 27.8 pg 27.0-32.0 [facility] Nucleated RBC/100 WBC (Bld) [Ratio] 0 % 0-5 [facility] MCHC Auto (RBC) [Mass/Vol]Or dered By: Breanne Ruiz on 05-31-2022 MCHC (RBC) [Mass/Vol] 30.5 g/dL 32-36 [facility] No Panel InformationOrdered By: Breanne Ruiz on 05-31-2022 Estimated GFR (MDRD) Amer 155 mL/min >60 [facility] Comment on above: GFR Calc Estimated GFR (MDRD) Non-Af Amer 128 mL/min >60 [facility] Comment on above: Non- GFR Calc Platelets bldOrdered By: Prashant Ruiz on 05-31-2022 Platelets (Bld) [#/Vol] 605 10*3/uL 150-450 [facility] Serum or plasma calcium jj urement (mass/volume)Ordered By: Breanne Ruiz on 05-31-2022 Calcium [Mass/Vol] 10.1 mg/dL 8.5-10.1 [facility] Serum or plasma creatinine m easurement (mass/volume)Ordered By: Breanne Ruiz on 05-31-2022 Creatinine [Mass/Vol] 0.51 mg/dL 0.55-1.02 [facility] Comment on above: The validity of the calculated GFR & GFRAA in patients over 70 years has not been determined. Clinical correlation is essential. Serum or plasma urea nitroge n measurement (mass/volume)Ordered By: Breanne Ruiz on 05-31-2022 Urea nitrogen [Mass/Vol] 22 mg/dL 7-18 [facility] Thin prep Papanicolaou smear with manual screeningOrdered By: Breanne Ruiz on 05-31-2022 Thin prep Papanicolaou smear with manual screening 10 5-15 [facility] Bilirubin Test strip Ql (U)O rdered By: Breanne Ruiz on 05-28-2022 Bilirubin Ql (U) Negative Negative [facility] Ketones Test strip Ql (U)Ord ered By: Breanne Ruiz on 05-28-2022 Ketones Ql (U) Negative Negative [facility] Nitrite Test strip Ql (U)Ord ered By: Breanne Ruiz on 05-28-2022 Nitrite Ql (U) Positive Negative [facility] Protein Test strip Ql (U)Ord ered By: Breanne Ruiz on 05-28-2022 Protein Ql (U) 30 mg/dl Negative [facility] Urine blood detectionOrdered By: Breanne Ruiz on 05-28-2022 RBC Ql (U) 25 /ul Negative [facility] Urine clarityOrdered By: Prashant Ruiz on 05-28-2022 Clarity (U) Cloudy Clear [facility] Urine color determinationOrd ered By: Breanne Ruiz on 05-28-2022 Color (U) Yellow Yellow [facility] Urine glucose detectionOrder ed By: Breanne Ruiz on 05-28-2022 Glucose Ql (U) Normal mg/dl Normal [facility] Urine leukocyte esterase det ection by dipstickOrdered By: Breanne Ruiz on 05-28-2022 Leukocyte esterase Test strip Ql (U) 500 /ul Negative [facility] Urine pHOrdered By: Bhupendra Ruiz on 05-28-2022 pH (U) 5.0 [pH] 5.0 - 8.0 [facility] Urine specific gravity measu rementOrdered By: Breanne Ruiz on 05-28-2022 Specific gravity (U) [Rel density] 1.025 1.002-1.030 [facility] Urobilinogen Auto test strip Ql (U)Ordered By: Breanne Ruiz on 05-28-2022 Urobilinogen Ql (U) Normal mg/dl Normal [facility] Absolute lymphocyte countOrd ered By: Breanne Ruiz on 05-27-2022 Lymphocytes Auto (Unsp spec) [#/Vol] 1.33 10*3/uL 0.83-4.51 [facility] Basophil percentageOrdered B y: Breanne Ruiz on 05-27-2022 Basophils/100 WBC (Bld) 0.4 % 0-1 [facility] Chloride [Moles/Vol] 106 mmol/L 98-107 [facility] Eosinophils/100 WBC (Bld) 0.1 % 0-5 [facility] Glucose [Mass/Vol] 196 mg/dL 74-106 [facility] Comment on above: Fasting Glucose resu lt greater than or equal to 126 mg/dL suggests DIABETES MELLITUS per A.D.A. criteria. Neutrophils (Bld) [#/Vol] 19.9 10*3/uL 2.0-7.7 [facility] Neutrophils/100 WBC (Bld) 85.7 % 47-70 [facility] Potassium [Moles/Vol] 3.3 mmol/L 3.5-5.1 [facility] Sodium [Moles/Vol] 139 mmol/L 136-145 [facility] WBC (Bld) [#/Vol] 23.2 10*3/uL 4.4-11.0 [facility] Blood erythrocytes count (nu mber/volume)Ordered By: Breanne Ruiz on 05-27-2022 RBC (Bld) [#/Vol] 4.62 10*6/uL 4.2-5.4 [facility] Blood hemoglobin measurement (mass/volume)Ordered By: Breanne Ruiz on 05-27-2022 Hemoglobin (Bld) [Mass/Vol] 12.9 g/dL 12.0-15.0 [facility] Blood lymphocytes/100 leukoc ytesOrdered By: Breanne Ruiz on 05-27-2022 Lymphocytes/100 WBC (Bld) 5.7 % 19-41 [facility] Blood manual differential co mment interpretation (narrative result)Ordered By: Breanne Ruiz on 05-27-2022 Manual differential comment Shaan (Bld) [Interp] COMMENT [facility] Comment on above: MONOCYTOSIS. Blood monocytes/100 leukocyt esOrdered By: Breanne Ruiz on 05-27-2022 Monocytes/100 WBC (Bld) 7.8 % 0-10 [facility] Blood platelet mean volumeOr dered By: Breanne Ruiz on 05-27-2022 Platelet mean volume (Bld) [Entitic vol] 8.6 fL 6.2-12.0 [facility] Determination of erythrocyte mean corpuscular volume (MCV)Ordered By: Breanne Ruiz on 05-27-2022 MCV (RBC) [Entitic vol] 88.1 fL 81-99 [facility] Hematocrit Auto (Bld) [Volum e fraction]Ordered By: Breanne Ruiz on 05-27-2022 Hematocrit (Bld) [Volume fraction] 40.7 % 37-47 [facility] - Chemistry and C hemistry - challengeOrdered By: vannessa Ruiz on 05-27-2022 CO2 [Moles/Vol] 22.0 mmol/L 21.0-32.0 [facility] Urea nitrogen/Creatinine [Mass ratio] 23.1 mg/mg 10-20 [facility] - Hematology and Cell countsOrdered By: adalbertoduckchetan Ruiz on 05-27-2022 Erythrocyte distribution width (RBC) [Entitic vol] 48.1 fL 35.1-43.9 [facility] Erythrocyte distribution width (RBC) [Ratio] 14.9 % 11.6-14.6 [facility] Immature granulocytes/100 WBC (Bld) 0.300 % 0.0-0.9 [facility] Comment on above: IG% - Immature Granu locytes (promyelocytes, myelocytes and metamyelocytes) > 1% indicates that a LEFT SHIFT is Present. MCH (RBC) [Entitic mass] 27.9 pg 27.0-32.0 [facility] Nucleated RBC/100 WBC (Bld) [Ratio] 0 % 0-5 [facility] MCHC Auto (RBC) [Mass/Vol]Or dered By: Breanne Ruiz on 05-27-2022 MCHC (RBC) [Mass/Vol] 31.7 g/dL 32-36 [facility] No Panel InformationOrdered By: Breanne Ruiz on 05-27-2022 Estimated GFR (MDRD) Amer 80 mL/min >60 [facility] Comment on above: GFR Calc Estimated GFR (MDRD) Non-Af Amer 66 mL/min >60 [facility] Comment on above: Non- GFR Calc Troponin I High Sensitivity 7 pg/mL 3.0-54.0 [facility] Comment on above: Please Note: New Adwoa t Units and Gender Specific Reference Ranges. For more information see Policy Stat Procedure [place] High Sensitivity Troponin (TNIH) and attachments. Platelets bldOrdered By: Prashant Ruiz on 05-27-2022 Platelets (Bld) [#/Vol] 468 10*3/uL 150-450 [facility] Review by pathologistOrdered By: Breanne Ruiz on 05-27-2022 Pathologist review Shaan (Unsp spec) [Interp] Reviewed [facility] Comment on above: Previous reported re sult: Kori isaacs Edited by: RGOJENNIFER on 05/31/22:1348Neutrophilic leukocytosis.Thrombocytosis.Clinical correlation necessary.Je Browne M.D. 05/31/22 AMENDED REPORT 05/31/22 1348 PATH REV previously reported as: Kori isaacs Serum or plasma calcium jj urement (mass/volume)Ordered By: Breanne Ruiz on 05-27-2022 Calcium [Mass/Vol] 9.4 mg/dL 8.5-10.1 [facility] Serum or plasma creatinine m easurement (mass/volume)Ordered By: Breanne Ruiz on 05-27-2022 Creatinine [Mass/Vol] 0.91 mg/dL 0.55-1.02 [facility] Comment on above: The validity of the calculated GFR & GFRAA in patients over 70 years has not been determined. Clinical correlation is essential. Serum or plasma urea nitroge n measurement (mass/volume)Ordered By: Breanne Ruiz on 05-27-2022 Urea nitrogen [Mass/Vol] 21 mg/dL 7-18 [facility] Thin prep Papanicolaou smear with manual screeningOrdered By: Breanne Ruiz on 05-27-2022 Thin prep Papanicolaou smear with manual screening 11 5-15 [facility] Absolute lymphocyte countOrd ered By: Breanne Ruiz on 05-17-2022 Lymphocytes Auto (Unsp spec) [#/Vol] 1.57 10*3/uL 0.83-4.51 [facility] [facility] Bas[facility] percentageOrdered B y: Breanne Ruiz on 05-17-2022 Basophils/100 WBC (Bld) 1.3 % 0-1 [facility] Chloride [Moles/Vol] 110 mmol/L 98-107 [facility] Eosinophils/100 WBC (Bld) 5.6 % 0-5 [facility] Glucose [Mass/Vol] 109 mg/dL 74-106 [facility] Comment on above: Fasting Glucose resu lt from 100 to 125 mg/dL suggests IMPAIRED HOMEOSTASIS per A.D.A. criteria. Neutrophils (Bld) [#/Vol] 4.6 10*3/uL 2.0-7.7 [facility] Neutrophils/100 WBC (Bld) 60.7 % 47-70 [facility] Potassium [Moles/Vol] 4.0 mmol/L 3.5-5.1 [facility] Sodium [Moles/Vol] 144 mmol/L 136-145 [facility] WBC (Bld) [#/Vol] 7.6 10*3/uL 4.4-11.0 [facility] Blood erythrocytes count (nu mber/volume)Ordered By: Breanne Ruiz on 05-17-2022 RBC (Bld) [#/Vol] 4.79 10*6/uL 4.2-5.4 [facility] Blood hemoglobin measurement (mass/volume)Ordered By: Breanne Ruiz on 05-17-2022 Hemoglobin (Bld) [Mass/Vol] 13.0 g/dL 12.0-15.0 [facility] Blood lymphocytes/100 leukoc ytesOrdered By: Breanne Ruiz on 05-17-2022 Lymphocytes/100 WBC (Bld) 20.8 % 19-41 [facility] Blood monocytes/100 leukocyt esOrdered By: Breanne Ruiz on 05-17-2022 Monocytes/100 WBC (Bld) 11.2 % 0-10 [facility] Blood platelet mean volumeOr dered By: Breanne Ruiz on 05-17-2022 Platelet mean volume (Bld) [Entitic vol] 9.2 fL 6.2-12.0 [facility] Determination of erythrocyte mean corpuscular volume (MCV)Ordered By: Breanne Ruiz on 05-17-2022 MCV (RBC) [Entitic vol] 91.4 fL 81-99 [facility] Hematocrit Auto (Bld) [Volum e fraction]Ordered By: Breanne Ruiz on 05-17-2022 Hematocrit (Bld) [Volume fraction] 43.8 % 37-47 [facility] - Chemistry and C hemistry - challengeOrdered By: Breanne Ruiz on 05-17-2022 CO2 [Moles/Vol] 26.0 mmol/L 21.0-32.0 [facility] Urea nitrogen/Creatinine [Mass ratio] 45.3 mg/mg 10-20 [facility] - Hematology and Cell countsOrdered By: Breanne Ruiz on 05-17-2022 Erythrocyte distribution width (RBC) [Entitic vol] 50.4 fL 35.1-43.9 [facility] Erythrocyte distribution width (RBC) [Ratio] 15.0 % 11.6-14.6 [facility] Immature granulocytes/100 WBC (Bld) 0.400 % 0.0-0.9 [facility] Comment on above: IG% - Immature Granu locytes (promyelocytes, myelocytes and metamyelocytes) > 1% indicates that a LEFT SHIFT is Present. MCH (RBC) [Entitic mass] 27.1 pg 27.0-32.0 [facility] Nucleated RBC/100 WBC (Bld) [Ratio] 0 % 0-5 [facility] MCHC Auto (RBC) [Mass/Vol]Or dered By: Breanne Ruiz on 05-17-2022 MCHC (RBC) [Mass/Vol] 29.7 g/dL 32-36 [facility] No Panel InformationOrdered By: Breanne Ruiz on 05-17-2022 Estimated GFR (MDRD) Amer 116 mL/min >60 [facility] Comment on above: GFR Calc Estimated GFR (MDRD) Non-Af Amer 95 mL/min >60 [facility] Comment on above: Non- GFR Calc Platelets bldOrdered By: Prashant Ruiz on 05-17-2022 Platelets (Bld) [#/Vol] 503 10*3/uL 150-450 [facility] Serum or plasma calcium jj urement (mass/volume)Ordered By: Breanne Ruiz on 05-17-2022 Calcium [Mass/Vol] 9.7 mg/dL 8.5-10.1 [facility] Serum or plasma creatinine m easurement (mass/volume)Ordered By: Breanne Ruiz on 05-17-2022 Creatinine [Mass/Vol] 0.66 mg/dL 0.55-1.02 [facility] Comment on above: The validity of the calculated GFR & GFRAA in patients over 70 years has not been determined. Clinical correlation is essential. Serum or plasma urea nitroge n measurement (mass/volume)Ordered By: Breanne Ruiz on 05-17-2022 Urea nitrogen [Mass/Vol] 30 mg/dL 7-18 [facility] Thin prep Papanicolaou smear with manual screeningOrdered By: vannessa Ruiz on 05-17-2022 Thin prep Papanicolaou smear with manual screening 8 5-15 [facility] Absolute lymphocyte countOrd ered By: Asad Jamison on 05-03-2022 Lymphocytes Auto (Unsp spec) [#/Vol] 1.95 10*3/uL 0.83-4.51 [facility] Basophil percentageOrdered B y: Asad Jamison on 05-03-2022 Basophils/100 WBC (Bld) 0.9 % 0-1 [facility] Chloride [Moles/Vol] 103 mmol/L 98-107 [facility] Eosinophils/100 WBC (Bld) 3.9 % 0-5 [facility] Glucose [Mass/Vol] 100 mg/dL 74-106 [facility] Comment on above: Fasting Glucose resu lt from 100 to 125 mg/dL suggests IMPAIRED HOMEOSTASIS per A.D.A. criteria. Neutrophils (Bld) [#/Vol] 6.6 10*3/uL 2.0-7.7 [facility] Neutrophils/100 WBC (Bld) 66.2 % 47-70 [facility] Potassium [Moles/Vol] 4.1 mmol/L 3.5-5.1 [facility] Comment on above: Moderate Hemolysis, Result may be falsely increased. Sodium [Moles/Vol] 139 mmol/L 136-145 [facility] WBC (Bld) [#/Vol] 10.0 10*3/uL 4.4-11.0 [facility] Blood erythrocytes count (nu mber/volume)Ordered By: Asad Jamison on 05-03-2022 RBC (Bld) [#/Vol] 4.77 10*6/uL 4.2-5.4 [facility] Blood hemoglobin measurement (mass/volume)Ordered By: Asad Jamison on 05-03-2022 Hemoglobin (Bld) [Mass/Vol] 13.2 g/dL 12.0-15.0 [facility] Blood lymphocytes/100 leukoc ytesOrdered By: Asad Jamison on 05-03-2022 Lymphocytes/100 WBC (Bld) 19.5 % 19-41 [facility] Blood monocytes/100 leukocyt esOrdered By: Asad Jamison on 05-03-2022 Monocytes/100 WBC (Bld) 8.9 % 0-10 [facility] Blood platelet mean volumeOr dered By: Asad Jamison on 05-03-2022 Platelet mean volume (Bld) [Entitic vol] 8.9 fL 6.2-12.0 [facility] Determination of erythrocyte mean corpuscular volume (MCV)Ordered By: Asad Jamison on 05-03-2022 MCV (RBC) [Entitic vol] 88.5 fL 81-99 [facility] Hematocrit Auto (Bld) [Volum e fraction]Ordered By: Asad Jamison on 05-03-2022 Hematocrit (Bld) [Volume fraction] 42.2 % 37-47 [facility] - Chemistry and C hemistry - challengeOrdered By: Asad Jamison on 05-03-2022 CO2 [Moles/Vol] 25.0 mmol/L 21.0-32.0 [facility] Urea nitrogen/Creatinine [Mass ratio] 48.2 mg/mg 10-20 [facility] - Hematology and Cell countsOrdered By: Asad Jamison on 05-03-2022 Erythrocyte distribution width (RBC) [Entitic vol] 48.7 fL 35.1-43.9 [facility] Erythrocyte distribution width (RBC) [Ratio] 15.0 % 11.6-14.6 [facility] Immature granulocytes/100 WBC (Bld) 0.600 % 0.0-0.9 [facility] Comment on above: IG% - Immature Granu locytes (promyelocytes, myelocytes and metamyelocytes) > 1% indicates that a LEFT SHIFT is Present. MCH (RBC) [Entitic mass] 27.7 pg 27.0-32.0 [facility] Nucleated RBC/100 WBC (Bld) [Ratio] 0 % 0-5 [facility] MCHC Auto (RBC) [Mass/Vol]Or dered By: Asad Jamison on 05-03-2022 MCHC (RBC) [Mass/Vol] 31.3 g/dL 32-36 [facility] No Panel InformationOrdered By: Asad Jamison on 05-03-2022 Estimated GFR (MDRD) Amer 129 mL/min >60 [facility] Comment on above: GFR Calc Estimated GFR (MDRD) Non-Af Amer 107 mL/min >60 [facility] Comment on above: Non- GFR Calc Platelets bldOrdered By: Gonzales Jamison on 05-03-2022 Platelets (Bld) [#/Vol] 488 10*3/uL 150-450 [facility] Serum or plasma calcium jj urement (mass/volume)Ordered By: Asad Jamison on 05-03-2022 Calcium [Mass/Vol] 9.4 mg/dL 8.5-10.1 [facility] Serum or plasma creatinine m easurement (mass/volume)Ordered By: Asad Jamison on 05-03-2022 Creatinine [Mass/Vol] 0.60 mg/dL 0.55-1.02 [facility] Comment on above: The validity of the calculated GFR & GFRAA in patients over 70 years has not been determined. Clinical correlation is essential. Serum or plasma urea nitroge n measurement (mass/volume)Ordered By: Asad Jamison on 05-03-2022 Urea nitrogen [Mass/Vol] 29 mg/dL 7-18 [facility] Thin prep Papanicolaou smear with manual screeningOrdered By: Asad Jamison on 05-03-2022 Thin prep Papanicolaou smear with manual screening 11 - [facility] Absolute lymphocyte countOrd ered By: Asad Jamison on 04-19-2022 Lymphocytes Auto (Unsp spec) [#/Vol] 1.80 10*3/uL 0.83-4.51 [facility] Basophil percentageOrdered B y: Asad Jamison on 04-19-2022 Basophils/100 WBC (Bld) 1.0 % 0-1 [facility] Chloride [Moles/Vol] 106 mmol/L 98-107 [facility] Eosinophils/100 WBC (Bld) 3.6 % 0-5 [facility] Glucose [Mass/Vol] 107 mg/dL 74-106 [facility] Comment on above: Fasting Glucose resu lt from 100 to 125 mg/dL suggests IMPAIRED HOMEOSTASIS per A.D.A. criteria. Neutrophils (Bld) [#/Vol] 4.6 10*3/uL 2.0-7.7 [facility] Neutrophils/100 WBC (Bld) 59.3 % 47-70 [facility] Potassium [Moles/Vol] 4.1 mmol/L 3.5-5.1 [facility] Sodium [Moles/Vol] 140 mmol/L 136-145 [facility] WBC (Bld) [#/Vol] 7.8 10*3/uL 4.4-11.0 [facility] Blood erythrocytes count (nu mber/volume)Ordered By: Asad Jamison on 04-19-2022 RBC (Bld) [#/Vol] 4.98 10*6/uL 4.2-5.4 [facility] Blood hemoglobin measurement (mass/volume)Ordered By: Asad Jamison on 04-19-2022 Hemoglobin (Bld) [Mass/Vol] 13.1 g/dL 12.0-15.0 [facility] Blood lymphocytes/100 leukoc ytesOrdered By: Asad Jamison on 04-19-2022 Lymphocytes/100 WBC (Bld) 23.1 % 19-41 [facility] Blood monocytes/100 leukocyt esOrdered By: Asad Jamison on 04-19-2022 Monocytes/100 WBC (Bld) 12.1 % 0-10 [facility] Blood platelet mean volumeOr dered By: Asad Jamison on 04-19-2022 Platelet mean volume (Bld) [Entitic vol] 8.9 fL 6.2-12.0 [facility] Determination of erythrocyte mean corpuscular volume (MCV)Ordered By: Asad Jamison on 04-19-2022 MCV (RBC) [Entitic vol] 88.0 fL 81-99 [facility] Hematocrit Auto (Bld) [Volum e fraction]Ordered By: Asad Jamison on 04-19-2022 Hematocrit (Bld) [Volume fraction] 43.8 % 37-47 [facility] - Chemistry and C hemistry - challengeOrdered By: Asad Jamison on 04-19-2022 CO2 [Moles/Vol] 27.0 mmol/L 21.0-32.0 [facility] Urea nitrogen/Creatinine [Mass ratio] 43.6 mg/mg 10-20 [facility] - Hematology and Cell countsOrdered By: Asad Jamison on 04-19-2022 Erythrocyte distribution width (RBC) [Entitic vol] 48.2 fL 35.1-43.9 [facility] Erythrocyte distribution width (RBC) [Ratio] 15.0 % 11.6-14.6 [facility] Immature granulocytes/100 WBC (Bld) 0.900 % 0.0-0.9 [facility] Comment on above: IG% - Immature Granu locytes (promyelocytes, myelocytes and metamyelocytes) > 1% indicates that a LEFT SHIFT is Present. MCH (RBC) [Entitic mass] 26.3 pg 27.0-32.0 [facility] Nucleated RBC/100 WBC (Bld) [Ratio] 0 % 0-5 [facility] MCHC Auto (RBC) [Mass/Vol]Or dered By: Asad Jamison on 04-19-2022 MCHC (RBC) [Mass/Vol] 29.9 g/dL 32-36 [facility] No Panel InformationOrdered By: Asad Jamison on 04-19-2022 Estimated GFR (MDRD) Amer 130 mL/min >60 [facility] Comment on above: GFR Calc Estimated GFR (MDRD) Non-Af Amer 108 mL/min >60 [facility] Comment on above: Non- GFR Calc Platelets bldOrdered By: Gonzales Jamison on 04-19-2022 Platelets (Bld) [#/Vol] 534 10*3/uL 150-450 [facility] Serum or plasma calcium jj urement (mass/volume)Ordered By: Asad Jamison on 04-19-2022 Calcium [Mass/Vol] 9.6 mg/dL 8.5-10.1 [facility] Serum or plasma creatinine m easurement (mass/volume)Ordered By: Asad Jamison on 04-19-2022 Creatinine [Mass/Vol] 0.60 mg/dL 0.55-1.02 [facility] Comment on above: The validity of the calculated GFR & GFRAA in patients over 70 years has not been determined. Clinical correlation is essential. Serum or plasma urea nitroge n measurement (mass/volume)Ordered By: Asad Jamison on 04-19-2022 Urea nitrogen [Mass/Vol] 26 mg/dL 7-18 [facility] Thin prep Papanicolaou smear with manual screeningOrdered By: Asad Jamison on 04-19-2022 Thin prep Papanicolaou smear with manual screening 7 5-15 [facility] Absolute lymphocyte countOrd ered By: Asad Jamison on 04-05-2022 Lymphocytes Auto (Unsp spec) [#/Vol] 1.31 10*3/uL 0.83-4.51 [facility] Basophil percentageOrdered B y: Asad Jamison on 04-05-2022 Basophils/100 WBC (Bld) 1.0 % 0-1 [facility] Chloride [Moles/Vol] 108 mmol/L 98-107 [facility] Eosinophils/100 WBC (Bld) 3.6 % 0-5 [facility] Glucose [Mass/Vol] 105 mg/dL 74-106 [facility] Comment on above: Fasting Glucose resu lt from 100 to 125 mg/dL suggests IMPAIRED HOMEOSTASIS per A.D.A. criteria. Neutrophils (Bld) [#/Vol] 6.1 10*3/uL 2.0-7.7 [facility] Neutrophils/100 WBC (Bld) 68.9 % 47-70 [facility] Potassium [Moles/Vol] 4.0 mmol/L 3.5-5.1 [facility] Sodium [Moles/Vol] 141 mmol/L 136-145 [facility] WBC (Bld) [#/Vol] 8.9 10*3/uL 4.4-11.0 [facility] Blood erythrocytes count (nu mber/volume)Ordered By: Asad Jamison on 04-05-2022 RBC (Bld) [#/Vol] 4.79 10*6/uL 4.2-5.4 [facility] Blood hemoglobin measurement (mass/volume)Ordered By: Asad Jamison on 04-05-2022 Hemoglobin (Bld) [Mass/Vol] 13.0 g/dL 12.0-15.0 [facility] Blood lymphocytes/100 leukoc ytesOrdered By: Asad Jamison on 04-05-2022 Lymphocytes/100 WBC (Bld) 14.7 % 19-41 [facility] Blood monocytes/100 leukocyt esOrdered By: Asad Jamison on 04-05-2022 Monocytes/100 WBC (Bld) 11.4 % 0-10 [facility] Blood platelet mean volumeOr dered By: Asad Jamison on 04-05-2022 Platelet mean volume (Bld) [Entitic vol] 8.7 fL 6.2-12.0 [facility] Determination of erythrocyte mean corpuscular volume (MCV)Ordered By: Asad Jamison on 04-05-2022 MCV (RBC) [Entitic vol] 87.9 fL 81-99 [facility] Hematocrit Auto (Bld) [Volum e fraction]Ordered By: Asad Jamison on 04-05-2022 Hematocrit (Bld) [Volume fraction] 42.1 % 37-47 [facility] - Chemistry and C hemistry - challengeOrdered By: Asad Jamison on 04-05-2022 CO2 [Moles/Vol] 27.0 mmol/L 21.0-32.0 [facility] Urea nitrogen/Creatinine [Mass ratio] 44.3 mg/mg 10-20 [facility] - Hematology and Cell countsOrdered By: Asad Jamison on 04-05-2022 Erythrocyte distribution width (RBC) [Entitic vol] 49.4 fL 35.1-43.9 [facility] Erythrocyte distribution width (RBC) [Ratio] 15.3 % 11.6-14.6 [facility] Immature granulocytes/100 WBC (Bld) 0.400 % 0.0-0.9 [facility] Comment on above: IG% - Immature Granu locytes (promyelocytes, myelocytes and metamyelocytes) > 1% indicates that a LEFT SHIFT is Present. MCH (RBC) [Entitic mass] 27.1 pg 27.0-32.0 [facility] Nucleated RBC/100 WBC (Bld) [Ratio] 0 % 0-5 [facility] MCHC Auto (RBC) [Mass/Vol]Or dered By: Asad Jamison on 04-05-2022 MCHC (RBC) [Mass/Vol] 30.9 g/dL 32-36 [facility] No Panel InformationOrdered By: Asad Jamison on 04-05-2022 Estimated GFR (MDRD) Amer 127 mL/min >60 [facility] Comment on above: GFR Calc Estimated GFR (MDRD) Non-Af Amer 105 mL/min >60 [facility] Comment on above: Non- GFR Calc Platelets bldOrdered By: Gonzales Jamison on 04-05-2022 Platelets (Bld) [#/Vol] 516 10*3/uL 150-450 [facility] Serum or plasma calcium jj urement (mass/volume)Ordered By: Asad Jamison on 04-05-2022 Calcium [Mass/Vol] 9.6 mg/dL 8.5-10.1 [facility] Serum or plasma creatinine m easurement (mass/volume)Ordered By: Asad Jamison on 04-05-2022 Creatinine [Mass/Vol] 0.61 mg/dL 0.55-1.02 [facility] Comment on above: The validity of the calculated GFR & GFRAA in patients over 70 years has not been determined. Clinical correlation is essential. Serum or plasma urea nitroge n measurement (mass/volume)Ordered By: Asad Jamison on 04-05-2022 Urea nitrogen [Mass/Vol] 27 mg/dL 7-18 [facility] Thin prep Papanicolaou smear with manual screeningOrdered By: Asad Jamison on 04-05-2022 Thin prep Papanicolaou smear with manual screening 6 5-15 [facility] Absolute lymphocyte countOrd ered By: Asad Jamison on 03-22-2022 Lymphocytes Auto (Unsp spec) [#/Vol] 1.60 10*3/uL 0.83-4.51 [facility] Basophil percentageOrdered B y: Asad Jamison on 03-22-2022 Basophils/100 WBC (Bld) 1.1 % 0-1 [facility] Chloride [Moles/Vol] 108 mmol/L 98-107 [facility] Eosinophils/100 WBC (Bld) 2.9 % 0-5 [facility] Glucose [Mass/Vol] 96 mg/dL 74-106 [facility] Neutrophils (Bld) [#/Vol] 5.1 10*3/uL 2.0-7.7 [facility] Neutrophils/100 WBC (Bld) 65.2 % 47-70 [facility] Potassium [Moles/Vol] 4.1 mmol/L 3.5-5.1 [facility] Sodium [Moles/Vol] 142 mmol/L 136-145 [facility] WBC (Bld) [#/Vol] 7.9 10*3/uL 4.4-11.0 [facility] Blood erythrocytes count (nu mber/volume)Ordered By: Asad Jamison on 03-22-2022 RBC (Bld) [#/Vol] 4.84 10*6/uL 4.2-5.4 [facility] Blood hemoglobin measurement (mass/volume)Ordered By: Asad Jamison on 03-22-2022 Hemoglobin (Bld) [Mass/Vol] 13.1 g/dL 12.0-15.0 [facility] Blood lymphocytes/100 leukoc ytesOrdered By: Asad Jamison on 03-22-2022 Lymphocytes/100 WBC (Bld) 20.3 % 19-41 [facility] Blood monocytes/100 leukocyt esOrdered By: Asad Jamison on 03-22-2022 Monocytes/100 WBC (Bld) 10.2 % 0-10 [facility] Blood platelet mean volumeOr dered By: Asad Jamison on 03-22-2022 Platelet mean volume (Bld) [Entitic vol] 9.1 fL 6.2-12.0 [facility] Determination of erythrocyte mean corpuscular volume (MCV)Ordered By: Asad Jamison on 03-22-2022 MCV (RBC) [Entitic vol] 87.8 fL 81-99 [facility] Hematocrit Auto (Bld) [Volum e fraction]Ordered By: Asad Jamison on 03-22-2022 Hematocrit (Bld) [Volume fraction] 42.5 % 37-47 [facility] - Chemistry and C hemistry - challengeOrdered By: Asad Jamison on 03-22-2022 CO2 [Moles/Vol] 26.0 mmol/L 21.0-32.0 [facility] Urea nitrogen/Creatinine [Mass ratio] 34.4 mg/mg 10-20 [facility] - Hematology and Cell countsOrdered By: Asad Jamison on 03-22-2022 Erythrocyte distribution width (RBC) [Entitic vol] 48.4 fL 35.1-43.9 [facility] Erythrocyte distribution width (RBC) [Ratio] 15.0 % 11.6-14.6 [facility] Immature granulocytes/100 WBC (Bld) 0.300 % 0.0-0.9 [facility] Comment on above: IG% - Immature Granu locytes (promyelocytes, myelocytes and metamyelocytes) > 1% indicates that a LEFT SHIFT is Present. MCH (RBC) [Entitic mass] 27.1 pg 27.0-32.0 [facility] Nucleated RBC/100 WBC (Bld) [Ratio] 0 % 0-5 [facility] MCHC Auto (RBC) [Mass/Vol]Or dered By: Asad Jamison on 03-22-2022 MCHC (RBC) [Mass/Vol] 30.8 g/dL 32-36 [facility] No Panel InformationOrdered By: Asad Jamison on 03-22-2022 Estimated GFR (MDRD) Amer 120 mL/min >60 [facility] Comment on above: GFR Calc Estimated GFR (MDRD) Non-Af Amer 99 mL/min >60 [facility] Comment on above: Non- GFR Calc Platelets bldOrdered By: Gonzales Jamison on 03-22-2022 Platelets (Bld) [#/Vol] 522 10*3/uL 150-450 [facility] Serum or plasma calcium jj urement (mass/volume)Ordered By: Asad Jamison on 03-22-2022 Calcium [Mass/Vol] 9.4 mg/dL 8.5-10.1 [facility] Serum or plasma creatinine m easurement (mass/volume)Ordered By: Asad Jamison on 03-22-2022 Creatinine [Mass/Vol] 0.64 mg/dL 0.55-1.02 [facility] Comment on above: The validity of the calculated GFR & GFRAA in patients over 70 years has not been determined. Clinical correlation is essential. Serum or plasma urea nitroge n measurement (mass/volume)Ordered By: Asad Jamison on 03-22-2022 Urea nitrogen [Mass/Vol] 22 mg/dL 12-20 [facility] Thin prep Papanicolaou smear with manual screeningOrdered By: Asad Jamison on 03-22-2022 Thin prep Papanicolaou smear with manual screening 8 5-15 [facility] Absolute lymphocyte countOrd ered By: Asad Jamison on 03-08-2022 Lymphocytes Auto (Unsp spec) [#/Vol] 1.49 10*3/uL 0.83-4.51 [facility] Basophil percentageOrdered B y: Asad Jamison on 03-08-2022 Basophils/100 WBC (Bld) 1.3 % 0-1 [facility] Chloride [Moles/Vol] 108 mmol/L 98-107 [facility] Eosinophils/100 WBC (Bld) 3.9 % 0-5 [facility] Glucose [Mass/Vol] 105 mg/dL 74-106 [facility] Comment on above: Fasting Glucose resu lt from 100 to 125 mg/dL suggests IMPAIRED HOMEOSTASIS per A.D.A. criteria. Neutrophils (Bld) [#/Vol] 4.3 10*3/uL 2.0-7.7 [facility] Neutrophils/100 WBC (Bld) 61.3 % 47-70 [facility] Potassium [Moles/Vol] 4.1 mmol/L 3.5-5.1 [facility] Sodium [Moles/Vol] 142 mmol/L 136-145 [facility] WBC (Bld) [#/Vol] 7.1 10*3/uL 4.4-11.0 [facility] Blood erythrocytes count (nu mber/volume)Ordered By: Asad Jamison on 03-08-2022 RBC (Bld) [#/Vol] 4.87 10*6/uL 4.2-5.4 [facility] Blood hemoglobin measurement (mass/volume)Ordered By: Asad Jamison on 03-08-2022 Hemoglobin (Bld) [Mass/Vol] 13.0 g/dL 12.0-15.0 [facility] Blood lymphocytes/100 leukoc ytesOrdered By: Asad Jamison on 03-08-2022 Lymphocytes/100 WBC (Bld) 21.0 % 19-41 [facility] Blood monocytes/100 leukocyt esOrdered By: Asad Jamison on 03-08-2022 Monocytes/100 WBC (Bld) 12.1 % 0-10 [facility] Blood platelet mean volumeOr dered By: Asad Jamison on 03-08-2022 Platelet mean volume (Bld) [Entitic vol] 8.9 fL 6.2-12.0 [facility] Determination of erythrocyte mean corpuscular volume (MCV)Ordered By: Asad Jamison on 03-08-2022 MCV (RBC) [Entitic vol] 87.9 fL 81-99 [facility] Hematocrit Auto (Bld) [Volum e fraction]Ordered By: Asad Jamison on 03-08-2022 Hematocrit (Bld) [Volume fraction] 42.8 % 37-47 [facility] - Chemistry and C hemistry - challengeOrdered By: Asad Jamison on 03-08-2022 CO2 [Moles/Vol] 27.0 mmol/L 21.0-32.0 [facility] Urea nitrogen/Creatinine [Mass ratio] 47.1 mg/mg 10-20 [facility] - Hematology and Cell countsOrdered By: Asad Jamison on 03-08-2022 Erythrocyte distribution width (RBC) [Entitic vol] 47.6 fL 35.1-43.9 [facility] Erythrocyte distribution width (RBC) [Ratio] 14.8 % 11.6-14.6 [facility] Immature granulocytes/100 WBC (Bld) 0.400 % 0.0-0.9 [facility] Comment on above: IG% - Immature Granu locytes (promyelocytes, myelocytes and metamyelocytes) > 1% indicates that a LEFT SHIFT is Present. MCH (RBC) [Entitic mass] 26.7 pg 27.0-32.0 [facility] Nucleated RBC/100 WBC (Bld) [Ratio] 0 % 0-5 [facility] MCHC Auto (RBC) [Mass/Vol]Or dered By: Asad Jamison on 03-08-2022 MCHC (RBC) [Mass/Vol] 30.4 g/dL 32-36 [facility] No Panel InformationOrdered By: Asad Jamison on 03-08-2022 Estimated GFR (MDRD) Amer 131 mL/min >60 [facility] Comment on above: GFR Calc Estimated GFR (MDRD) Non-Af Amer 108 mL/min >60 [facility] Comment on above: Non- GFR Calc Platelets bldOrdered By: Gonzales Jamison on 03-08-2022 Platelets (Bld) [#/Vol] 521 10*3/uL 150-450 [facility] Serum or plasma calcium jj urement (mass/volume)Ordered By: Asad Jamison on 03-08-2022 Calcium [Mass/Vol] 9.5 mg/dL 8.5-10.1 [facility] Serum or plasma creatinine m easurement (mass/volume)Ordered By: Asad Jamison on 03-08-2022 Creatinine [Mass/Vol] 0.59 mg/dL 0.55-1.02 [facility] Comment on above: The validity of the calculated GFR & GFRAA in patients over 70 years has not been determined. Clinical correlation is essential. Serum or plasma urea nitroge n measurement (mass/volume)Ordered By: Asad Jamison on 03-08-2022 Urea nitrogen [Mass/Vol] 28 mg/dL 7-18 [facility] Thin prep Papanicolaou smear with manual screeningOrdered By: Asad Jamison on 03-08-2022 Thin prep Papanicolaou smear with manual screening 7 5-15 [facility] Absolute lymphocyte countOrd ered By: Asad Jamison on 02-22-2022 Lymphocytes Auto (Unsp spec) [#/Vol] 1.48 10*3/uL 0.83-4.51 [facility] Basophil percentageOrdered B y: Asad Jamison on 02-22-2022 Basophils/100 WBC (Bld) 1.2 % 0-1 [facility] Chloride [Moles/Vol] 109 mmol/L 98-107 [facility] Eosinophils/100 WBC (Bld) 5.9 % 0-5 [facility] Glucose [Mass/Vol] 103 mg/dL 74-106 [facility] Comment on above: Fasting Glucose resu lt from 100 to 125 mg/dL suggests IMPAIRED HOMEOSTASIS per A.D.A. criteria. Neutrophils (Bld) [#/Vol] 4.1 10*3/uL 2.0-7.7 [facility] Neutrophils/100 WBC (Bld) 58.7 % 47-70 [facility] Potassium [Moles/Vol] 4.3 mmol/L 3.5-5.1 [facility] Sodium [Moles/Vol] 143 mmol/L 136-145 [facility] WBC (Bld) [#/Vol] 6.9 10*3/uL 4.4-11.0 [facility] Blood erythrocytes count (nu mber/volume)Ordered By: Asad Jamison on 02-22-2022 RBC (Bld) [#/Vol] 4.90 10*6/uL 4.2-5.4 [facility] Blood hemoglobin measurement (mass/volume)Ordered By: Asad Jamison on 02-22-2022 Hemoglobin (Bld) [Mass/Vol] 13.1 g/dL 12.0-15.0 [facility] Blood lymphocytes/100 leukoc ytesOrdered By: Asad Jamison on 02-22-2022 Lymphocytes/100 WBC (Bld) 21.4 % 19-41 [facility] Blood monocytes/100 leukocyt esOrdered By: Asad Jamison on 02-22-2022 Monocytes/100 WBC (Bld) 12.4 % 0-10 [facility] Blood platelet mean volumeOr dered By: Asad Jamison on 02-22-2022 Platelet mean volume (Bld) [Entitic vol] 9.0 fL 6.2-12.0 [facility] Determination of erythrocyte mean corpuscular volume (MCV)Ordered By: Asad Jamison on 02-22-2022 MCV (RBC) [Entitic vol] 88.2 fL 81-99 [facility] Hematocrit Auto (Bld) [Volum e fraction]Ordered By: Asad Jamison on 02-22-2022 Hematocrit (Bld) [Volume fraction] 43.2 % 37-47 [facility] Laboratory - Chemistry and C hemistry - challengeOrdered By: Asad Jamison on 02-22-2022 CO2 [Moles/Vol] 25.0 mmol/L 21.0-32.0 [facility] Urea nitrogen/Creatinine [Mass ratio] 48.9 mg/mg 10- [facility] Laboratory - Hematology and Cell countsOrdered By: Asad Jamison on 02-22-2022 Erythrocyte distribution width (RBC) [Entitic vol] 48.8 fL 35.1-43.9 [facility] Erythrocyte distribution width (RBC) [Ratio] 15.1 % 11.6-14.6 [facility] Immature granulocytes/100 WBC (Bld) 0.400 % 0.0-0.9 [facility] Comment on above: IG% - Immature Granu locytes (promyelocytes, myelocytes and metamyelocytes) > 1% indicates that a LEFT SHIFT is Present. MCH (RBC) [Entitic mass] 26.7 pg 27.0-32.0 [facility] Nucleated RBC/100 WBC (Bld) [Ratio] 0 % 0-5 [facility] MCHC Auto (RBC) [Mass/Vol]Or dered By: Asad Jamison on 02-22-2022 MCHC (RBC) [Mass/Vol] 30.3 g/dL 32-36 [facility] No Panel InformationOrdered By: Asad Jamison on 02-22-2022 Estimated GFR (MDRD) Amer 126 mL/min >60 [facility] Comment on above: GFR Calc Estimated GFR (MDRD) Non-Af Amer 104 mL/min >60 [facility] Comment on above: Non- GFR Calc Platelets bldOrdered By: Gonzales Jamison on 02-22-2022 Platelets (Bld) [#/Vol] 492 10*3/uL 150-450 [facility] Serum or plasma calcium jj urement (mass/volume)Ordered By: Asad Jamison on 02-22-2022 Calcium [Mass/Vol] 9.7 mg/dL 8.5-10.1 [facility] Serum or plasma creatinine m easurement (mass/volume)Ordered By: Asad Jamison on 02-22-2022 Creatinine [Mass/Vol] 0.61 mg/dL 0.55-1.02 [facility] Comment on above: The validity of the calculated GFR & GFRAA in patients over 70 years has not been determined. Clinical correlation is essential. Serum or plasma urea nitroge n measurement (mass/volume)Ordered By: Asad Jamison on 02-22-2022 Urea nitrogen [Mass/Vol] 30 mg/dL 7-18 [facility] Thin prep Papanicolaou smear with manual screeningOrdered By: Asad Jamison on 02-22-2022 Thin prep Papanicolaou smear with manual screening 9 5-15 [facility] Absolute lymphocyte counton 02-08-2022 Lymphocytes Auto (Unsp spec) [#/Vol] 1.37 10*3/uL 0.83-4.51 [facility] Work Phone: Basophil percentageon 2021 Basophils/100 WBC (Bld) 1.3 % 0-1 [facility] Work Phone: Chloride [Moles/Vol] 109 mmol/L 98-107 [facility] Work Phone: Eosinophils/100 WBC (Bld) 4.0 % 0-5 [facility] Work Phone: Glucose [Mass/Vol] 99 mg/dL 74-106 [facility] Work Phone: Neutrophils (Bld) [#/Vol] 4.1 10*3/uL 2.0-7.7 [facility] Work Phone: Neutrophils/100 WBC (Bld) 59.3 % 47-70 [facility] Work Phone: Potassium [Moles/Vol] 4.1 mmol/L 3.5-5.1 [facility] Work Phone: Sodium [Moles/Vol] 143 mmol/L 136-145 [facility] Work Phone: WBC (Bld) [#/Vol] 7.0 10*3/uL 4.4-11.0 [facility] Work Phone: Blood erythrocytes count (nu mber/volume)on 02-08-2022 RBC (Bld) [#/Vol] 5.00 10*6/uL 4.2-5.4 [facility] Work Phone: Blood hemoglobin measurement (mass/volume)on 02-08-2022 Hemoglobin (Bld) [Mass/Vol] 13.0 g/dL 12.0-15.0 [facility] Work Phone: Blood lymphocytes/100 leukoc yteson 02-08-2022 Lymphocytes/100 WBC (Bld) 19.7 % 19-41 [facility] Work Phone: Blood monocytes/100 leukocyt eson 02-08-2022 Monocytes/100 WBC (Bld) 15.4 % 0-10 [facility] Work Phone: [phone] Blood platelet mean volumeon 02-08-2022 Platelet mean volume (Bld) [Entitic vol] 8.6 fL 6.2-12.0 [facility] Work Phone: [phone] Determination of erythrocyte mean corpuscular volume (MCV)on 02-08-2022 MCV (RBC) [Entitic vol] 92.4 fL 81-99 [facility] Work Phone: [phone] Hematocrit Auto (Bld) [Volum e fraction]on 02-08-2022 Hematocrit (Bld) [Volume fraction] 46.2 % 37-47 [facility] Work Phone: [phone] Laboratory - Chemistry and C hemistry - challengeon 02-08-2022 CO2 [Moles/Vol] 24.0 mmol/L 21.0-32.0 [facility] Work Phone: [phone] Urea nitrogen/Creatinine [Mass ratio] 38.5 mg/mg 10-20 [facility] Work Phone: [phone] Laboratory - Hematology and Cell countson 02-08-2022 Erythrocyte distribution width (RBC) [Entitic vol] 51.8 fL 35.1-43.9 [facility] Work Phone: [phone] Erythrocyte distribution width (RBC) [Ratio] 15.3 % 11.6-14.6 [facility] Work Phone: [phone] Immature granulocytes/100 WBC (Bld) 0.300 % 0.0-0.9 [facility] Work Phone: [phone] Comment on above: IG% - Immature Granu locytes (promyelocytes, myelocytes and metamyelocytes) > 1% indicates that a LEFT SHIFT is Present. MCH (RBC) [Entitic mass] 26.0 pg 27.0-32.0 [facility] Work Phone: [phone] Nucleated RBC/100 WBC (Bld) [Ratio] 0 % 0-5 [facility] Work Phone: [phone] MCHC Auto (RBC) [Mass/Vol]on 02-08-2022 MCHC (RBC) [Mass/Vol] 28.1 g/dL 32-36 [facility] Work Phone: No Panel Informationon 02-08 Estimated GFR (MDRD) Amer 118 mL/min >60 [facility] Work Phone: Comment on above: GFR Calc Estimated GFR (MDRD) Non-Af Amer 98 mL/min >60 [facility] Work Phone: [phone] Comment on above: Non- GFR Calc Platelets bldon 02-08-2022 Platelets (Bld) [#/Vol] 504 10*3/uL 150-450 [facility] Work Phone: [phone] Serum or plasma calcium jj urement (mass/volume)on 02-08-2022 Calcium [Mass/Vol] 10.0 mg/dL 8.5-10.1 [facility] Work Phone: [phone] Serum or plasma creatinine m easurement (mass/volume)on 02-08-2022 Creatinine [Mass/Vol] 0.65 mg/dL 0.55-1.02 [facility] Work Phone: [phone] Comment on above: The validity of the calculated GFR & GFRAA in patients over 70 years has not been determined. Clinical correlation is essential. Serum or plasma urea nitroge n measurement (mass/volume)on 02-08-2022 Urea nitrogen [Mass/Vol] 25 mg/dL 7-18 [facility] Work Phone: [phone] Thin prep Papanicolaou smear with manual screeningon 02-08-2022 Thin prep Papanicolaou smear with manual screening 10 5-15 [facility] Work Phone: [phone] Absolute lymphocyte counton 01-25-2022 Lymphocytes Auto (Unsp spec) [#/Vol] 1.61 10*3/uL 0.83-4.51 [facility] Work Phone: [phone] Basophil percentageon 2021 Basophils/100 WBC (Bld) 1.6 % 0-1 [facility] Work Phone: [phone] Chloride [Moles/Vol] 110 mmol/L 98-107 [facility] Work Phone: Eosinophils/100 WBC (Bld) 3.6 % 0-5 [facility] Work Phone: Glucose [Mass/Vol] 109 mg/dL 74-106 [facility] Work Phone: Comment on above: Fasting Glucose resu lt from 100 to 125 mg/dL suggests IMPAIRED HOMEOSTASIS per A.D.A. criteria. Neutrophils (Bld) [#/Vol] 3.8 10*3/uL 2.0-7.7 [facility] Work Phone: Neutrophils/100 WBC (Bld) 55.5 % 47-70 [facility] Work Phone: Potassium [Moles/Vol] 4.0 mmol/L 3.5-5.1 [facility] Work Phone: Sodium [Moles/Vol] 142 mmol/L 136-145 [facility] Work Phone: WBC (Bld) [#/Vol] 6.9 10*3/uL 4.4-11.0 [facility] Work Phone: Blood erythrocytes count (nu mber/volume)on 01-25-2022 RBC (Bld) [#/Vol] 4.66 10*6/uL 4.2-5.4 [facility] Work Phone: Blood hemoglobin measurement (mass/volume)on 01-25-2022 Hemoglobin (Bld) [Mass/Vol] 12.5 g/dL 12.0-15.0 [facility] Work Phone: Blood lymphocytes/100 leukoc yteson 01-25-2022 Lymphocytes/100 WBC (Bld) 23.4 % 19-41 [facility] Work Phone: Blood monocytes/100 leukocyt eson 01-25-2022 Monocytes/100 WBC (Bld) 15.3 % 0-10 [facility] Work Phone: Blood platelet mean volumeon 01-25-2022 Platelet mean volume (Bld) [Entitic vol] 9.0 fL 6.2-12.0 [facility] Work Phone: [phone] Determination of erythrocyte mean corpuscular volume (MCV)on 01-25-2022 MCV (RBC) [Entitic vol] 88.6 fL 81-99 [facility] Work Phone: [phone] Hematocrit Auto (Bld) [Volum e fraction]on 01-25-2022 Hematocrit (Bld) [Volume fraction] 41.3 % 37-47 [facility] Work Phone: [phone] Laboratory - Chemistry and C hemistry - challengeon 01-25-2022 CO2 [Moles/Vol] 23.0 mmol/L 21.0-32.0 [facility] Work Phone: [phone] Urea nitrogen/Creatinine [Mass ratio] 38.3 mg/mg 10-20 [facility] Work Phone: [phone] Laboratory - Hematology and Cell countson 01-25-2022 Erythrocyte distribution width (RBC) [Entitic vol] 49.9 fL 35.1-43.9 [facility] Work Phone: [phone] Erythrocyte distribution width (RBC) [Ratio] 15.4 % 11.6-14.6 [facility] Work Phone: [phone] Immature granulocytes/100 WBC (Bld) 0.600 % 0.0-0.9 [facility] Work Phone: [phone] Comment on above: IG% - Immature Granu locytes (promyelocytes, myelocytes and metamyelocytes) > 1% indicates that a LEFT SHIFT is Present. MCH (RBC) [Entitic mass] 26.8 pg 27.0-32.0 [facility] Work Phone: [phone] Nucleated RBC/100 WBC (Bld) [Ratio] 0 % 0-5 [facility] Work Phone: [phone] MCHC Auto (RBC) [Mass/Vol]on 01-25-2022 MCHC (RBC) [Mass/Vol] 30.3 g/dL 32-36 [facility] Work [facility]: No Panel Informationon 01-25 Estimated GFR (MDRD) Amer 103 mL/min >60 [facility] Work Phone: Comment on above: GFR Calc Estimated GFR (MDRD) Non-Af Amer 85 mL/min >60 [facility] Work Phone: Comment on above: Non- GFR Calc Platelets bldon 01-25-2022 Platelets (Bld) [#/Vol] 513 10*3/uL 150-450 [facility] Work Phone: [phone] Serum or plasma calcium jj urement (mass/volume)on 01-25-2022 Calcium [Mass/Vol] 9.6 mg/dL 8.5-10.1 [facility] Work Phone: Serum or plasma creatinine m easurement (mass/volume)on 01-25-2022 Creatinine [Mass/Vol] 0.73 mg/dL 0.55-1.02 [facility] Work Phone: Comment on above: The validity of the calculated GFR & GFRAA in patients over 70 years has not been determined. Clinical correlation is essential. Serum or plasma urea nitroge n measurement (mass/volume)on 01-25-2022 Urea nitrogen [Mass/Vol] 28 mg/dL 7-18 [facility] Work Phone: Thin prep Papanicolaou smear with manual screeningon 01-25-2022 Thin prep Papanicolaou smear with manual screening 9 5-15 [facility] Work Phone: [phone] Absolute lymphocyte counton 01-11-2022 Lymphocytes Auto (Unsp spec) [#/Vol] 1.57 10*3/uL 0.83-4.51 [facility] Work Phone: Basophil percentageon 2021 Basophils/100 WBC (Bld) 1.3 % 0-1 [facility] Work Phone: Chloride [Moles/Vol] 107 mmol/L 98-107 [facility] Work Phone: Eosinophils/100 WBC (Bld) 4.7 % 0-5 [facility] Work Phone: Glucose [Mass/Vol] 89 mg/dL 74-106 [facility] Work Phone: Neutrophils (Bld) [#/Vol] 3.5 10*3/uL 2.0-7.7 [facility] Work Phone: Neutrophils/100 WBC (Bld) 56.0 % 47-70 [facility] Work Phone: Potassium [Moles/Vol] 4.0 mmol/L 3.5-5.1 [facility] Work Phone: Sodium [Moles/Vol] 139 mmol/L 136-145 [facility] Work Phone: WBC (Bld) [#/Vol] 6.3 10*3/uL 4.4-11.0 [facility] Work Phone: Blood erythrocytes count (nu mber/volume)on 01-11-2022 RBC (Bld) [#/Vol] 4.71 10*6/uL 4.2-5.4 [facility] Work Phone: Blood hemoglobin measurement (mass/volume)on 01-11-2022 Hemoglobin (Bld) [Mass/Vol] 12.4 g/dL 12.0-15.0 [facility] Work Phone: Blood lymphocytes/100 leukoc yteson 01-11-2022 Lymphocytes/100 WBC (Bld) 24.8 % 19-41 [facility] Work Phone: Blood monocytes/100 leukocyt eson 01-11-2022 Monocytes/100 WBC (Bld) 12.7 % 0-10 [facility] Work Phone: Blood platelet mean volumeon 01-11-2022 Platelet mean volume (Bld) [Entitic vol] 8.8 fL 6.2-12.0 [facility] Work Phone: Determination of erythrocyte mean corpuscular volume (MCV)on 01-11-2022 MCV (RBC) [Entitic vol] 89.2 fL 81-99 [facility] Work Phone: [phone] Hematocrit Auto (Bld) [Volum e fraction]on 01-11-2022 Hematocrit (Bld) [Volume fraction] 42.0 % 37-47 [facility] Work Phone: [phone] Laboratory - Chemistry and C hemistry - challengeon 01-11-2022 CO2 [Moles/Vol] 26.0 mmol/L 21.0-32.0 [facility] Work Phone: [phone] Urea nitrogen/Creatinine [Mass ratio] 45.6 mg/mg 10-20 [facility] Work Phone: [phone] Laboratory - Hematology and Cell countson 01-11-2022 Erythrocyte distribution width (RBC) [Entitic vol] 51.2 fL 35.1-43.9 [facility] Work Phone: [phone] Erythrocyte distribution width (RBC) [Ratio] 15.6 % 11.6-14.6 [facility] Work Phone: [phone] Immature granulocytes/100 WBC (Bld) 0.500 % 0.0-0.9 [facility] Work Phone: [phone] Comment on above: IG% - Immature Granu locytes (promyelocytes, myelocytes and metamyelocytes) > 1% indicates that a LEFT SHIFT is Present. MCH (RBC) [Entitic mass] 26.3 pg 27.0-32.0 [facility] Work Phone: [phone] Nucleated RBC/100 WBC (Bld) [Ratio] 0 % 0-5 [facility] Work Phone: [phone] MCHC Auto (RBC) [Mass/Vol]on 01-11-2022 MCHC (RBC) [Mass/Vol] 29.5 g/dL 32-36 [facility] Work Phone: [phone] No Panel Informationon 01-11 Estimated GFR (MDRD) Amer 158 mL/min >60 [facility] Work Phone: [phone] Comment on above: GFR Calc Estimated GFR (MDRD) Non-Af Amer 131 mL/min >60 [facility] Work Phone: Comment on above: Non- GFR Calc Platelets bldon 01-11-2022 Platelets (Bld) [#/Vol] 496 10*3/uL 150-450 [facility] Work Phone: Serum or plasma calcium jj urement (mass/volume)on 01-11-2022 Calcium [Mass/Vol] 9.7 mg/dL 8.5-10.1 [facility] Work Phone: Serum or plasma creatinine m easurement (mass/volume)on 01-11-2022 Creatinine [Mass/Vol] 0.50 mg/dL 0.55-1.02 [facility] Work Phone: Comment on above: The validity of the calculated GFR & GFRAA in patients over 70 years has not been determined. Clinical correlation is essential. Serum or plasma urea nitroge n measurement (mass/volume)on 01-11-2022 Urea nitrogen [Mass/Vol] 23 mg/dL 7-18 [facility] Work Phone: Thin prep Papanicolaou smear with manual screeningon 01-11-2022 Thin prep Papanicolaou smear with manual screening 6 5-15 [facility] Work Phone: Absolute lymphocyte counton 12-28-2021 Lymphocytes Auto (Unsp spec) [#/Vol] 1.56 10*3/uL 0.83-4.51 [facility] Work Phone: Basophil percentageon 2021 Basophils/100 WBC (Bld) 1.1 % 0-1 [facility] Work Phone: Chloride [Moles/Vol] 106 mmol/L 98-107 [facility] Work Phone: Eosinophils/100 WBC (Bld) 3.4 % 0-5 [facility] Work Phone: Glucose [Mass/Vol] 93 mg/dL 74-106 [facility] Work Phone: Neutrophils (Bld) [#/Vol] 4.3 10*3/uL 2.0-7.7 [facility] Work Phone: Neutrophils/100 WBC (Bld) 61.0 % 47-70 [facility] Work Phone: Potassium [Moles/Vol] 3.7 mmol/L 3.5-5.1 [facility] Work Phone: Sodium [Moles/Vol] 139 mmol/L 136-145 [facility] Work Phone: WBC (Bld) [#/Vol] 7.0 10*3/uL 4.4-11.0 [facility] Work Phone: Blood erythrocytes count (nu mber/volume)on 12-28-2021 RBC (Bld) [#/Vol] 4.69 10*6/uL 4.2-5.4 [facility] Work [facility]: Blood hemoglobin measurement (mass/volume)on 12-28-2021 Hemoglobin (Bld) [Mass/Vol] 12.6 g/dL 12.0-15.0 [facility] Work Phone: Blood lymphocytes/100 leukoc yteson 12-28-2021 Lymphocytes/100 WBC (Bld) 22.2 % 19-41 [facility] Work Phone: [phone] Blood monocytes/100 leukocyt eson 12-28-2021 Monocytes/100 WBC (Bld) 11.6 % 0-10 [facility] Work Phone: [phone] Blood platelet mean volumeon 12-28-2021 Platelet mean volume (Bld) [Entitic vol] 8.5 fL 6.2-12.0 [facility] Work Phone: Determination of erythrocyte mean corpuscular volume (MCV)on 12-28-2021 MCV (RBC) [Entitic vol] 90.2 fL 81-99 [facility] Work Phone: Hematocrit Auto (Bld) [Volum e fraction]on 12-28-2021 Hematocrit (Bld) [Volume fraction] 42.3 % 37-47 [facility] Work Phone: Laboratory - Chemistry and C hemistry - challengeon 12-28-2021 CO2 [Moles/Vol] 26.0 mmol/L 21.0-32.0 [facility] Work Phone: [phone] Urea nitrogen/Creatinine [Mass ratio] 34.9 mg/mg 10-20 [facility] Work Phone: [phone] Laboratory - Hematology and Cell countson 12-28-2021 Erythrocyte distribution width (RBC) [Entitic vol] 51.9 fL 35.1-43.9 [facility] Work Phone: [phone] Erythrocyte distribution width (RBC) [Ratio] 15.9 % 11.6-14.6 [facility] Work Phone: [phone] Immature granulocytes/100 WBC (Bld) 0.700 % 0.0-0.9 [facility] Work Phone: [phone] Comment on above: IG% - Immature Granu locytes (promyelocytes, myelocytes and metamyelocytes) > 1% indicates that a LEFT SHIFT is Present. MCH (RBC) [Entitic mass] 26.9 pg 27.0-32.0 [facility] Work Phone: [phone] Nucleated RBC/100 WBC (Bld) [Ratio] 0 % 0-5 [facility] Work Phone: [phone] MCHC Auto (RBC) [Mass/Vol]on 12-28-2021 MCHC (RBC) [Mass/Vol] 29.8 g/dL 32-36 [facility] Work Phone: [phone] No Panel Informationon 12-28 Estimated GFR (MDRD) Amer 129 mL/min >60 [facility] Work Phone: [phone] Comment on above: GFR Calc Estimated GFR (MDRD) Non-Af Amer 107 mL/min >60 [facility] Work Phone: [phone] Comment on above: Non- GFR Calc Platelets bldon 12-28-2021 Platelets (Bld) [#/Vol] 574 10*3/uL 150-450 [facility] Work Phone: Serum or plasma calcium jj urement (mass/volume)on 12-28-2021 Calcium [Mass/Vol] 9.7 mg/dL 8.5-10.1 [facility] Work Phone: [phone] Serum or plasma creatinine m easurement (mass/volume)on 12-28-2021 Creatinine [Mass/Vol] 0.60 mg/dL 0.55-1.02 [facility] Work Phone: Comment on above: The validity of the calculated GFR & GFRAA in patients over 70 years has not been determined. Clinical correlation is essential. Serum or plasma urea nitroge n measurement (mass/volume)on 12-28-2021 Urea nitrogen [Mass/Vol] 21 mg/dL 7-18 [facility] Work Phone: Thin prep Papanicolaou smear with manual screeningon 12-28-2021 Thin prep Papanicolaou smear with manual screening 7 5-15 [facility] Work Phone: Absolute lymphocyte counton 12-14-2021 Lymphocytes Auto (Unsp spec) [#/Vol] 1.34 10*3/uL 0.83-4.51 [facility] Work Phone: Basophil percentageon 2021 Basophils/100 WBC (Bld) 1.1 % 0-1 [facility] Work Phone: Chloride [Moles/Vol] 106 mmol/L 98-107 [facility] Work Phone: Eosinophils/100 WBC (Bld) 2.3 % 0-5 [facility] Work Phone: Glucose [Mass/Vol] 94 mg/dL 74-106 [facility] Work Phone: Neutrophils (Bld) [#/Vol] 6.7 10*3/uL 2.0-7.7 [facility] Work Phone: Neutrophils/100 WBC (Bld) 70.8 % 47-70 [facility] Work Phone: Potassium [Moles/Vol] 3.6 mmol/L 3.5-5.1 [facility] Work Phone: Sodium [Moles/Vol] 143 mmol/L 136-145 [facility] Work Phone: [phone] WBC (Bld) [#/Vol] 9.4 10*3/uL 4.4-11.0 [facility] Work Phone: Blood erythrocytes count (nu mber/volume)on 12-14-2021 RBC (Bld) [#/Vol] 4.55 10*6/uL 4.2-5.4 [facility] Work Phone: Blood hemoglobin measurement (mass/volume)on 12-14-2021 Hemoglobin (Bld) [Mass/Vol] 11.9 g/dL 12.0-15.0 [facility] Work Phone: Blood lymphocytes/100 leukoc yteson 12-14-2021 Lymphocytes/100 WBC (Bld) 14.2 % 19-41 [facility] Work Phone: [phone] Blood monocytes/100 leukocyt eson 12-14-2021 Monocytes/100 WBC (Bld) 11.0 % 0-10 [facility] Work Phone: Blood platelet mean volumeon 12-14-2021 Platelet mean volume (Bld) [Entitic vol] 9.0 fL 6.2-12.0 [facility] Work Phone: Determination of erythrocyte mean corpuscular volume (MCV)on 12-14-2021 MCV (RBC) [Entitic vol] 90.1 fL 81-99 [facility] Work Phone: Hematocrit Auto (Bld) [Volum e fraction]on 12-14-2021 Hematocrit (Bld) [Volume fraction] 41.0 % 37-47 [facility] Work Phone: Laboratory - Chemistry and C hemistry - challengeon 12-14-2021 CO2 [Moles/Vol] 30.0 mmol/L 21.0-32.0 [facility] Work Phone: Urea nitrogen/Creatinine [Mass ratio] 40.1 mg/mg 10-20 [facility] Work Phone: Laboratory - Hematology and Cell countson 12-14-2021 Erythrocyte distribution width (RBC) [Entitic vol] 53.1 fL 35.1-43.9 [facility] Work Phone: [phone] Erythrocyte distribution width (RBC) [Ratio] 15.9 % 11.6-14.6 [facility] Work Phone: [phone] Immature granulocytes/100 WBC (Bld) 0.600 % 0.0-0.9 [facility] Work Phone: Comment on above: IG% - Immature Granu locytes (promyelocytes, myelocytes and metamyelocytes) > 1% indicates that a LEFT SHIFT is Present. MCH (RBC) [Entitic mass] 26.2 pg 27.0-32.0 [facility] Work Phone: Nucleated RBC/100 WBC (Bld) [Ratio] 0 % 0-5 [facility] Work Phone: [phone] MCHC Auto (RBC) [Mass/Vol]on 12-14-2021 MCHC (RBC) [Mass/Vol] 29.0 g/dL 32-36 [facility] Work Phone: No Panel Informationon 12-14 Estimated GFR (MDRD) Amer 144 mL/min >60 [facility] Work Phone: Comment on above: GFR Calc Estimated GFR (MDRD) Non-Af Amer 119 mL/min >60 [facility] Work Phone: [phone] Comment on above: Non- GFR Calc Platelets bldon 12-14-2021 Platelets (Bld) [#/Vol] 567 10*3/uL 150-450 [facility] Work Phone: [phone] Serum or plasma calcium jj urement (mass/volume)on 12-14-2021 Calcium [Mass/Vol] 9.6 mg/dL 8.5-10.1 [facility] Work Phone: [phone] Serum or plasma creatinine m easurement (mass/volume)on 12-14-2021 Creatinine [Mass/Vol] 0.55 mg/dL 0.55-1.02 [facility] Work Phone: Comment on above: The validity of the calculated GFR & GFRAA in patients over 70 years has not been determined. Clinical correlation is essential. Serum or plasma urea nitroge n measurement (mass/volume)on 12-14-2021 Urea nitrogen [Mass/Vol] 22 mg/dL 7-18 [facility] Work Phone: Thin prep Papanicolaou smear with manual screeningon 12-14-2021 Thin prep Papanicolaou smear with manual screening 7 5-15 [facility] Work Phone: Absolute lymphocyte counton 11-16-2021 Lymphocytes Auto (Unsp spec) [#/Vol] 1.38 10*3/uL 0.83-4.51 [facility] Work Phone: Basophil percentageon 2021 Basophils/100 WBC (Bld) 1.1 % 0-1 [facility] Work Phone: Chloride [Moles/Vol] 106 mmol/L 98-107 [facility] Work Phone: Eosinophils/100 WBC (Bld) 3.7 % 0-5 [facility] Work Phone: Glucose [Mass/Vol] 100 mg/dL 74-106 [facility] Work Phone: Comment on above: Fasting Glucose resu lt from 100 to 125 mg/dL suggests IMPAIRED HOMEOSTASIS per A.D.A. criteria. Neutrophils (Bld) [#/Vol] 4.5 10*3/uL 2.0-7.7 [facility] Work Phone: Neutrophils/100 WBC (Bld) 61.9 % 47-70 [facility] Work Phone: Potassium [Moles/Vol] 3.7 mmol/L 3.5-5.1 [facility] Work Phone: Sodium [Moles/Vol] 142 mmol/L 136-145 [facility] Work Phone: WBC (Bld) [#/Vol] 7.3 10*3/uL 4.4-11.0 [facility] Work Phone: Blood erythrocytes count (nu mber/volume)on 11-16-2021 RBC (Bld) [#/Vol] 4.38 10*6/uL 4.2-5.4 [facility]: Blood hemoglobin measurement (mass/volume)on 11-16-2021 Hemoglobin (Bld) [Mass/Vol] 11.6 g/dL 12.0-15.0 [facility] Work Phone: Blood lymphocytes/100 leukoc yteson 11-16-2021 Lymphocytes/100 WBC (Bld) 18.9 % 19-41 [facility] Work Phone: [phone] Blood monocytes/100 leukocyt eson 11-16-2021 Monocytes/100 WBC (Bld) 13.0 % 0-10 [facility] Work Phone: Blood platelet mean volumeon 11-16-2021 Platelet mean volume (Bld) [Entitic vol] 8.5 fL 6.2-12.0 [facility] Work Phone: Determination of erythrocyte mean corpuscular volume (MCV)on 11-16-2021 MCV (RBC) [Entitic vol] 90.6 fL 81-99 [facility] Work Phone: Hematocrit Auto (Bld) [Volum e fraction]on 11-16-2021 Hematocrit (Bld) [Volume fraction] 39.7 % 37-47 [facility] Work Phone: Laboratory - Chemistry and C hemistry - challengeon 11-16-2021 CO2 [Moles/Vol] 30.0 mmol/L 21.0-32.0 [facility] Work Phone: Urea nitrogen/Creatinine [Mass ratio] 23.4 mg/mg 10-20 [facility] Work Phone: Laboratory - Hematology and Cell countson 11-16-2021 Erythrocyte distribution width (RBC) [Entitic vol] 54.2 fL 35.1-43.9 [facility] Work Phone: [phone] Erythrocyte distribution width (RBC) [Ratio] 16.2 % 11.6-14.6 [facility] Work Phone: [phone] Immature granulocytes/100 WBC (Bld) 1.400 % 0.0-0.9 [facility] Work Phone: [phone] Comment on above: IG% - Immature Granu locytes (promyelocytes, myelocytes and metamyelocytes) > 1% indicates that a LEFT SHIFT is Present. MCH (RBC) [Entitic mass] 26.5 pg 27.0-32.0 [facility] Work Phone: [phone] Nucleated RBC/100 WBC (Bld) [Ratio] 0 % 0-5 [facility] Work Phone: [phone] MCHC Auto (RBC) [Mass/Vol]on 11-16-2021 MCHC (RBC) [Mass/Vol] 29.2 g/dL 32-36 [facility] Work Phone: No Panel Informationon 11-16 Estimated GFR (MDRD) Amer 142 mL/min >60 [facility] Work Phone: Comment on above: GFR Calc Estimated GFR (MDRD) Non-Af Amer 117 mL/min >60 [facility] Work Phone: Comment on above: Non- GFR Calc Platelets bldon 11-16-2021 Platelets (Bld) [#/Vol] 584 10*3/uL 150-450 [facility] Work Phone: [phone] Serum or plasma calcium jj urement (mass/volume)on 11-16-2021 Calcium [Mass/Vol] 9.4 mg/dL 8.5-10.1 [facility] Work Phone: [phone] Serum or plasma creatinine m easurement (mass/volume)on 11-16-2021 Creatinine [Mass/Vol] 0.56 mg/dL 0.55-1.02 [facility] Work Phone: Comment on above: The validity of the calculated GFR & GFRAA in patients over 70 years has not been determined. Clinical correlation is essential. Serum or plasma urea nitroge n measurement (mass/volume)on 11-16-2021 Urea nitrogen [Mass/Vol] 13 mg/dL 7-18 [facility] Work Phone: Thin prep Papanicolaou smear with manual screeningon 11-16-2021 Thin prep Papanicolaou smear with manual screening 6 5-15 [facility] Work Phone: Absolute lymphocyte counton 11-02-2021 Lymphocytes Auto (Unsp spec) [#/Vol] 1.38 10*3/uL 0.83-4.51 [facility] Work Phone: Basophil percentageon 2021 Basophils/100 WBC (Bld) 1.1 % 0-1 [facility] Work Phone: Chloride [Moles/Vol] 100 mmol/L 98-107 [facility] Work Phone: Eosinophils/100 WBC (Bld) 4.3 % 0-5 [facility] Work Phone: Glucose [Mass/Vol] 78 mg/dL 74-106 [facility] Work Phone: Neutrophils (Bld) [#/Vol] 6.8 10*3/uL 2.0-7.7 [facility] Work Phone: Neutrophils/100 WBC (Bld) 69.5 % 47-70 [facility] Work Phone: Potassium [Moles/Vol] 3.5 mmol/L 3.5-5.1 [facility] Work Phone: Sodium [Moles/Vol] 138 mmol/L 136-145 [facility] Work Phone: WBC (Bld) [#/Vol] 9.8 10*3/uL 4.4-11.0 [facility] Work Phone: Blood erythrocytes count (nu mber/volume)on 11-02-2021 RBC (Bld) [#/Vol] 4.58 10*6/uL 4.2-5.4 [facility] Work Phone: Blood hemoglobin measurement (mass/volume)on 11-02-2021 Hemoglobin (Bld) [Mass/Vol] 12.2 g/dL 12.0-15.0 [facility] Work Phone: Blood lymphocytes/100 leukoc yteson 11-02-2021 Lymphocytes/100 WBC (Bld) 14.1 % 19-41 [facility] Work Phone: Blood monocytes/100 leukocyt eson 11-02-2021 Monocytes/100 WBC (Bld) 9.1 % 0-10 [facility] Work Phone: Blood platelet mean volumeon 11-02-2021 Platelet mean volume (Bld) [Entitic vol] 8.2 fL 6.2-12.0 [facility] Work Phone: Determination of erythrocyte mean corpuscular volume (MCV)on 11-02-2021 MCV (RBC) [Entitic vol] 90.2 fL 81-99 [facility] Work Phone: Hematocrit Auto (Bld) [Volum e fraction]on 11-02-2021 Hematocrit (Bld) [Volume fraction] 41.3 % 37-47 [facility] Work Phone: Laboratory - Chemistry and C hemistry - challengeon 11-02-2021 CO2 [Moles/Vol] 31.0 mmol/L 21.0-32.0 [facility] Work Phone: Urea nitrogen/Creatinine [Mass ratio] 35.8 mg/mg 10-20 [facility] Work Phone: Laboratory - Hematology and Cell countson 11-02-2021 Erythrocyte distribution width (RBC) [Entitic vol] 51.6 fL 35.1-43.9 [facility] Work Phone: [phone] Erythrocyte distribution width (RBC) [Ratio] 15.7 % 11.6-14.6 [facility] Work Phone: Immature granulocytes/100 WBC (Bld) 1.900 % 0.0-0.9 [facility] Work Phone: [phone] Comment on above: IG% - Immature Granu locytes (promyelocytes, myelocytes and metamyelocytes) > 1% indicates that a LEFT SHIFT is Present. MCH (RBC) [Entitic mass] 26.6 pg 27.0-32.0 [facility] Work Phone: [phone] Nucleated RBC/100 WBC (Bld) [Ratio] 0 % 0-5 [facility] Work Phone: [phone] MCHC Auto (RBC) [Mass/Vol]on 11-02-2021 MCHC (RBC) [Mass/Vol] 29.5 g/dL 32-36 [facility] Work Phone: [phone] No Panel Informationon 11-02 Estimated GFR (MDRD) Amer 133 mL/min >60 [facility] Work Phone: Comment on above: GFR Calc Estimated GFR (MDRD) Non-Af Amer 110 mL/min >60 [facility] Work Phone: Comment on above: Non- GFR Calc Platelets bldon 11-02-2021 Platelets (Bld) [#/Vol] 545 10*3/uL 150-450 [facility] Work Phone: [phone] Serum or plasma calcium jj urement (mass/volume)on 11-02-2021 Calcium [Mass/Vol] 9.6 mg/dL 8.5-10.1 [facility] Work Phone: [phone] Serum or plasma creatinine m easurement (mass/volume)on 11-02-2021 Creatinine [Mass/Vol] 0.59 mg/dL 0.55-1.02 [facility] Work Phone: [phone] Comment on above: The validity of the calculated GFR & GFRAA in patients over 70 years has not been determined. Clinical correlation is essential. Serum or plasma urea nitroge n measurement (mass/volume)on 11-02-2021 Urea nitrogen [Mass/Vol] 21 mg/dL 7-18 [facility] Work Phone: Thin prep Papanicolaou smear with manual screeningon 11-02-2021 Thin prep Papanicolaou smear with manual screening 7 5-15 [facility] Work Phone: Absolute lymphocyte counton 10-25-2021 Lymphocytes Auto (Unsp spec) [#/Vol] 1.29 10*3/uL 0.83-4.51 [facility] Work Phone: Basophil percentageon 2021 Basophils/100 WBC (Bld) 0.8 % 0-1 [facility] Work Phone: Chloride [Moles/Vol] 106 mmol/L 98-107 [facility] Work Phone: Eosinophils/100 WBC (Bld) 2.0 % 0-5 [facility] Work Phone: Glucose [Mass/Vol] 106 mg/dL 74-106 [facility] Work Phone: Comment on above: Fasting Glucose resu lt from 100 to 125 mg/dL suggests IMPAIRED HOMEOSTASIS per A.D.A. criteria. Neutrophils (Bld) [#/Vol] 13.8 10*3/uL 2.0-7.7 [facility] Work Phone: Neutrophils/100 WBC (Bld) 79.4 % 47-70 [facility] Work Phone: Potassium [Moles/Vol] 4.3 mmol/L 3.5-5.1 [facility] Work Phone: Comment on above: Slight Hemolysis, Re sult may be falsely increased. Sodium [Moles/Vol] 137 mmol/L 136-145 [facility] Work Phone: WBC (Bld) [#/Vol] 17.3 10*3/uL 4.4-11.0 [facility] Work Phone: Blood erythrocytes count (nu mber/volume)on 10-25-2021 RBC (Bld) [#/Vol] 4.91 10*6/uL 4.2-5.4 [facility] Work Phone: Blood hemoglobin measurement (mass/volume)on 10-25-2021 Hemoglobin (Bld) [Mass/Vol] 13.4 g/dL 12.0-15.0 [facility] Work Phone: Blood lymphocytes/100 leukoc yteson 10-25-2021 Lymphocytes/100 WBC (Bld) 7.5 % 19-41 [facility] Work Phone: Blood monocytes/100 leukocyt eson 10-25-2021 Monocytes/100 WBC (Bld) 7.9 % 0-10 [facility] Work Phone: Blood platelet mean volumeon 10-25-2021 Platelet mean volume (Bld) [Entitic vol] 8.6 fL 6.2-12.0 [facility] Work Phone: Determination of erythrocyte mean corpuscular volume (MCV)on 10-25-2021 MCV (RBC) [Entitic vol] 87.8 fL 81-99 [facility] Work Phone: Hematocrit Auto (Bld) [Volum e fraction]on 10-25-2021 Hematocrit (Bld) [Volume fraction] 43.1 % 37-47 [facility] Work Phone: Laboratory - Chemistry and C hemistry - challengeon 10-25-2021 CO2 [Moles/Vol] 24.0 mmol/L 21.0-32.0 [facility] Work Phone: Urea nitrogen/Creatinine [Mass ratio] 18.2 mg/mg 10-20 [facility] Work Phone: Laboratory - Hematology and Cell countson 10-25-2021 Erythrocyte distribution width (RBC) [Entitic vol] 49.2 fL 35.1-43.9 [facility] Work Phone: Erythrocyte distribution width (RBC) [Ratio] 15.5 % 11.6-14.6 [facility] Work Phone: Immature granulocytes/100 WBC (Bld) 2.400 % 0.0-0.9 [facility] Work Phone: Comment on above: IG% - Immature Granu locytes (promyelocytes, myelocytes and metamyelocytes) > 1% indicates that a LEFT SHIFT is Present. MCH (RBC) [Entitic mass] 27.3 pg 27.0-32.0 [facility] Work Phone: Nucleated RBC/100 WBC (Bld) [Ratio] 0 % 0-5 [facility] Work Phone: [phone] MCHC Auto (RBC) [Mass/Vol]on 10-25-2021 MCHC (RBC) [Mass/Vol] 31.1 g/dL 32-36 [facility] Work Phone: No Panel Informationon 10-25 Estimated GFR (MDRD) Amer 84 mL/min >60 [facility] Work Phone: Comment on above: GFR Calc Estimated GFR (MDRD) Non-Af Amer 69 mL/min >60 [facility] Work Phone: Comment on above: Non- GFR Calc Platelets bldon 10-25-2021 Platelets (Bld) [#/Vol] 614 10*3/uL 150-450 [facility] Work Phone: [phone] Serum or plasma calcium jj urement (mass/volume)on 10-25-2021 Calcium [Mass/Vol] 8.9 mg/dL 8.5-10.1 [facility] Work Phone: [phone] Serum or plasma creatinine m easurement (mass/volume)on 10-25-2021 Creatinine [Mass/Vol] 0.88 mg/dL 0.55-1.02 [facility] Work Phone: Comment on above: The validity of the calculated GFR & GFRAA in patients over 70 years has not been determined. Clinical correlation is essential. Serum or plasma urea nitroge n measurement (mass/volume)on 10-25-2021 Urea nitrogen [Mass/Vol] 16 mg/dL 7-18 [facility] Work Phone: [phone] Thin prep Papanicolaou smear with manual screeningon 10-25-2021 Thin prep Papanicolaou smear with manual screening 7 5-15 [facility] Work Phone: Absolute lymphocyte counton 10-18-2021 Lymphocytes Auto (Unsp spec) [#/Vol] 2.05 10*3/uL 0.83-4.51 [facility] Work Phone: Basophil percentageon 2021 Basophil percentage Not Reportable [facility] Work Phone: Chloride [Moles/Vol] 97 mmol/L 98-107 [facility] Work Phone: Glucose [Mass/Vol] 120 mg/dL 74-106 [facility] Work Phone: Comment on above: Fasting Glucose resu lt from 100 to 125 mg/dL suggests IMPAIRED HOMEOSTASIS per A.D.A. criteria. Neutrophils (Bld) [#/Vol] 12.6 10*3/uL 2.0-7.7 [facility] Work Phone: Potassium [Moles/Vol] 4.7 mmol/L 3.5-5.1 [facility] Work Phone: Sodium [Moles/Vol] 131 mmol/L 136-145 [facility] Work Phone: WBC (Bld) [#/Vol] 18.6 10*3/uL 4.4-11.0 [facility] Work Phone: Bilirubin Test strip Ql (U)o n 10-18-2021 Bilirubin Ql (U) Negative Negative [facility] Work Phone: Blood eosinophils/100 leukoc yteson 10-18-2021 Eosinophils/100 WBC (Bld) 2 % 0-5 [facility] Work Phone: Blood erythrocytes count (nu mber/volume)on 10-18-2021 RBC (Bld) [#/Vol] 4.24 10*6/uL 4.2-5.4 [facility] Work Phone: Blood hemoglobin measurement (mass/volume)on 10-18-2021 Hemoglobin (Bld) [Mass/Vol] 11.6 g/dL 12.0-15.0 [facility] Work Phone: Blood lymphocytes/100 leukoc yteson 10-18-2021 Lymphocytes/100 WBC (Bld) 11 % 19-41 [facility] Work Phone: Blood metamyelocytes/100 papa kocyteson 10-18-2021 Metamyelocytes/100 WBC (Bld) 6 % 0-1 [facility] Work Phone: Blood monocytes/100 leukocyt eson 10-18-2021 Monocytes/100 WBC (Bld) 8 % 0-10 [facility] Work Phone: Blood platelet adequacy dete ction by light microscopyon 10-18-2021 Platelets LM Ql (Bld) MOD INC ADEQ [facility] Work Phone: Blood platelet mean volumeon 10-18-2021 Platelet mean volume (Bld) [Entitic vol] 8.6 fL 6.2-12.0 [facility] Work Phone: Blood promyelocytes/100 leuk ocyteson 10-18-2021 Promyelocytes/100 WBC (Bld) 1 % 0-0 [facility] Work Phone: Blood segmented neutrophils/ 100 leukocyteson 10-18-2021 Segmented neutrophils/100 WBC (Bld) 68 % 47-70 [facility] Work Phone: Culture, urineon 10-18-2021 Bacteria identified Cx Nom (U) Mixed Gram Pos & Gram Neg Org [facility] Work Phone: Bacteria identified Cx Nom (U) Yeast [facility] Work Phone: Determination of erythrocyte mean corpuscular volume (MCV)on 10-18-2021 MCV (RBC) [Entitic vol] 89.6 fL 81-99 [facility] Work Phone: Hematocrit Auto (Bld) [Volum e fraction]on 10-18-2021 Hematocrit (Bld) [Volume fraction] 38.0 % 37-47 [facility] Work Phone: Ketones Test strip Ql (U)on 10-18-2021 Ketones Ql (U) Negative Negative [facility] Work Phone: Laboratory - Chemistry and C hemistry - challengeon 10-18-2021 CO2 [Moles/Vol] 24.0 mmol/L 21.0-32.0 [facility] Work Phone: Urea nitrogen/Creatinine [Mass ratio] 49.9 mg/mg 10-20 [facility] Work Phone: Laboratory - Hematology and Cell countson 10-18-2021 Erythrocyte distribution width (RBC) [Entitic vol] 48.5 fL 35.1-43.9 [facility] Work Phone: [phone] Erythrocyte distribution width (RBC) [Ratio] 14.9 % 11.6-14.6 [facility] Work Phone: MCH (RBC) [Entitic mass] 27.4 pg 27.0-32.0 [facility] Work Phone: Myelocytes/100 WBC (Bld) 4 % 0-0 [facility] Work Phone: MCHC Auto (RBC) [Mass/Vol]on 10-18-2021 MCHC (RBC) [Mass/Vol] 30.5 g/dL 32-36 [facility] Work Phone: Nitrite Test strip Ql (U)on 10-18-2021 Nitrite Ql (U) Negative Negative [facility] Work Phone: No Panel Informationon 10-18 Estimated GFR (MDRD) Amer 129 mL/min >60 [facility] Work Phone: Comment on above: GFR Calc Estimated GFR (MDRD) Non-Af Amer 107 mL/min >60 [facility] Work Phone: Comment on above: Non- GFR Calc Platelets bldon 10-18-2021 Platelets (Bld) [#/Vol] 561 10*3/uL 150-450 [facility] Work Phone: Protein Test strip Ql (U)on 10-18-2021 Protein Ql (U) 15 mg/dl Negative [facility] Work Phone: [phone] RBC morphologyon 10-18-2021 RBC morphology finding Nom (Bld) NORM C+C NORMAL NORM C&C [facility] Work Phone: Review by pathologiston 10-03 Pathologist review Shaan (Unsp spec) [Interp] Reviewed [facility] Work Phone: Comment on above: Previous reported re sult: Kori ferny Edited by: RGOOD on 10/19/21:1241Leukocytosis with Neutrophilic left shift. Thrombocytosis.Clinical correlation necessary.Je Browne M.D. 10/19/21 AMENDED REPORT 10/19/21 1241 PATH REV previously reported as: Kori isaacs Serum or plasma calcium jj urement (mass/volume)on 10-18-2021 Calcium [Mass/Vol] 9.6 mg/dL 8.5-10.1 [facility] Work Phone: [phone] Serum or plasma creatinine m easurement (mass/volume)on 10-18-2021 Creatinine [Mass/Vol] 0.60 mg/dL 0.55-1.02 [facility] Work Phone: Comment on above: The validity of the calculated GFR & GFRAA in patients over 70 years has not been determined. Clinical correlation is essential. Serum or plasma urea nitroge n measurement (mass/volume)on 10-18-2021 Urea nitrogen [Mass/Vol] 30 mg/dL 7-18 [facility] Work Phone: Thin prep Papanicolaou smear with manual screeningon 10-18-2021 Thin prep Papanicolaou smear with manual screening 10 5-15 [facility] Work Phone: Total cell counton 2 Cells counted Molgen (Bld/Tiss) [#] 100 MANUAL DIFF [facility] Work Phone: Urine blood detectionon 10-03 RBC Ql (U) Negative Negative [facility] Work Phone: Urine clarityon 10-18-2021 Clarity (U) Clear Clear [facility] Work Phone: Urine color determinationon 10-18-2021 Color (U) Yellow Yellow [facility] Work Phone: Urine glucose detectionon Glucose Ql (U) Normal mg/dl Normal [facility] Work Phone: Urine leukocyte esterase det ection by dipstickon 10-18-2021 Leukocyte esterase Test strip Ql (U) Negative Negative [facility] Work Phone: Urine pHon 10-18-2021 pH (U) 6.0 [pH] 5.0 - 8.0 [facility] Work Phone: Urine specific gravity measu rementon 10-18-2021 Specific gravity (U) [Rel density] 1.015 1.002-1.030 [facility] Work Phone: Urobilinogen Auto test strip Ql (U)on 10-18-2021 Urobilinogen Ql (U) Normal mg/dl Normal [facility] Work Phone: Absolute lymphocyte counton 10-11-2021 Lymphocytes Auto (Unsp spec) [#/Vol] 1.28 10*3/uL 0.83-4.51 [facility] Work Phone: Basophil percentageon 2021 Basophils/100 WBC (Bld) 0.5 % 0-1 [facility] Work Phone: Bilirubin [Mass/Vol] 0.40 mg/dL 0.20-1.00 [facility] Work Phone: Comment on above: For patients on eltr ombopag therapy, use of Dimension [place] TBIL is not recommended. Chloride [Moles/Vol] 102 mmol/L 98-107 [facility] Work Phone: Eosinophils/100 WBC (Bld) 3.5 % 0-5 [facility] Work Phone: Glucose [Mass/Vol] 130 mg/dL 74-106 [facility] Work Phone: Comment on above: Fasting Glucose resu lt greater than or equal to 126 mg/dL suggests DIABETES MELLITUS per A.D.A. criteria. Neutrophils (Bld) [#/Vol] 10.0 10*3/uL 2.0-7.7 [facility] Work Phone: Neutrophils/100 WBC (Bld) 74.6 % 47-70 [facility] Work Phone: Potassium [Moles/Vol] 4.0 mmol/L 3.5-5.1 [facility] Work Phone: Protein [Mass/Vol] 6.3 g/dL 6.4-8.2 [facility] Work Phone: Sodium [Moles/Vol] 137 mmol/L 136-145 [facility] Work Phone: WBC (Bld) [#/Vol] 13.4 10*3/uL 4.4-11.0 [facility] Work Phone: Blood erythrocytes count (nu mber/volume)on 10-11-2021 RBC (Bld) [#/Vol] 4.57 10*6/uL 4.2-5.4 [facility] Work Phone: Blood hemoglobin measurement (mass/volume)on 10-11-2021 Hemoglobin (Bld) [Mass/Vol] 12.4 g/dL 12.0-15.0 [facility] Work Phone: Blood lymphocytes/100 leukoc yteson 10-11-2021 Lymphocytes/100 WBC (Bld) 9.6 % 19-41 [facility] Work Phone: Blood monocytes/100 leukocyt eson 10-11-2021 Monocytes/100 WBC (Bld) 9.0 % 0-10 [facility] Work Phone: Blood platelet mean volumeon 10-11-2021 Platelet mean volume (Bld) [Entitic vol] 9.2 fL 6.2-12.0 [facility] Work Phone: [phone] Determination of erythrocyte mean corpuscular volume (MCV)on 10-11-2021 MCV (RBC) [Entitic vol] 90.2 fL 81-99 [facility] Work Phone: [phone] Hematocrit Auto (Bld) [Volum e fraction]on 10-11-2021 Hematocrit (Bld) [Volume fraction] 41.2 % 37-47 [facility] Work Phone: [phone] Laboratory - Chemistry and C hemistry - challengeon 10-11-2021 ALP [Catalytic activity/Vol] 79 U/L 45-117 [facility] Work Phone: [phone] ALT [Catalytic activity/Vol] 120 U/L 13-56 [facility] Work Phone: [phone] CO2 [Moles/Vol] 27.0 mmol/L 21.0-32.0 [facility] Work Phone: [phone] Globulin (S) [Mass/Vol] 4.5 g/dL 2.2-4.2 [facility] Work Phone: [phone] Urea nitrogen/Creatinine [Mass ratio] 64.6 mg/mg 10-20 [facility] Work Phone: [phone] Laboratory - Hematology and Cell countson 10-11-2021 Erythrocyte distribution width (RBC) [Entitic vol] 47.8 fL 35.1-43.9 [facility] Work [facility]: [phone] Erythrocyte distribution width (RBC) [Ratio] 14.5 % 11.6-14.6 [facility] Work Phone: [phone] Immature granulocytes/100 WBC (Bld) 2.800 % 0.0-0.9 [facility] Work Phone: [phone] Comment on above: IG% - Immature Granu locytes (promyelocytes, myelocytes and metamyelocytes) > 1% indicates that a LEFT SHIFT is Present. MCH (RBC) [Entitic mass] 27.1 pg 27.0-32.0 [facility] Work Phone: [phone] Nucleated RBC/100 WBC (Bld) [Ratio] 0 % 0-5 [facility] Work Phone: MCHC Auto (RBC) [Mass/Vol]on 10-11-2021 MCHC (RBC) [Mass/Vol] 30.1 g/dL 32-36 [facility] Work Phone: No Panel Informationon 10-11 Estimated GFR (MDRD) Amer 168 mL/min >60 [facility] Work Phone: Comment on above: GFR Calc Estimated GFR (MDRD) Non-Af Amer 139 mL/min >60 [facility] Work Phone: Comment on above: Non- GFR Calc Platelets bldon 10-11-2021 Platelets (Bld) [#/Vol] 369 10*3/uL 150-450 [facility] Work Phone: Serum or plasma albumin jj urement (mass/volume)on 10-11-2021 Albumin [Mass/Vol] 1.8 g/dL 3.2-5.0 [facility] Work Phone: Serum or plasma albumin/glob ulin mass ratioon 10-11-2021 Albumin/Globulin [Mass ratio] 0.4 {ratio} 0.9-2.4 [facility] Work Phone: Serum or plasma calcium jj urement (mass/volume)on 10-11-2021 Calcium [Mass/Vol] 8.9 mg/dL 8.5-10.1 [facility] Work Phone: [phone] Serum or plasma creatinine m easurement (mass/volume)on 10-11-2021 Creatinine [Mass/Vol] 0.48 mg/dL 0.55-1.02 [facility] Work Phone: Comment on above: The validity of the calculated GFR & GFRAA in patients over 70 years has not been determined. Clinical correlation is essential. Serum or plasma urea nitroge n measurement (mass/volume)on 10-11-2021 Urea nitrogen [Mass/Vol] 31 mg/dL 7-18 [facility] Work Phone: Thin prep Papanicolaou smear with manual screeningon 10-11-2021 Thin prep Papanicolaou smear with manual screening 55 U/L 15-37 [facility] Work Phone: Thin prep Papanicolaou smear with manual screening 8 5-15 [facility] Work Phone: Absolute lymphocyte counton 09-28-2021 Lymphocytes Auto (Unsp spec) [#/Vol] 1.32 10*3/uL 0.83-4.51 [facility] Work Phone: Basophil percentageon 2021 Basophils/100 WBC (Bld) 0.5 % 0-1 [facility] Work Phone: Chloride [Moles/Vol] 106 mmol/L 98-107 [facility] Work Phone: Eosinophils/100 WBC (Bld) 0.1 % 0-5 [facility] Work Phone: Glucose [Mass/Vol] 115 mg/dL 74-106 [facility] Work Phone: Comment on above: Fasting Glucose resu lt from 100 to 125 mg/dL suggests IMPAIRED HOMEOSTASIS per A.D.A. criteria. Neutrophils (Bld) [#/Vol] 11.5 10*3/uL 2.0-7.7 [facility] Work Phone: Neutrophils/100 WBC (Bld) 77.5 % 47-70 [facility] Work Phone: Potassium [Moles/Vol] 4.0 mmol/L 3.5-5.1 [facility] Work Phone: Sodium [Moles/Vol] 138 mmol/L 136-145 [facility] Work Phone: WBC (Bld) [#/Vol] 14.8 10*3/uL 4.4-11.0 [facility] Work Phone: Blood erythrocytes count (nu mber/volume)on 09-28-2021 RBC (Bld) [#/Vol] 5.25 10*6/uL 4.2-5.4 [facility] Work Phone: Blood hemoglobin measurement (mass/volume)on 09-28-2021 Hemoglobin (Bld) [Mass/Vol] 14.7 g/dL 12.0-15.0 [facility] Work Phone: Blood lymphocytes/100 leukoc yteson 09-28-2021 Lymphocytes/100 WBC (Bld) 8.9 % 19-41 [facility] Work Phone: Blood monocytes/100 leukocyt eson 09-28-2021 Monocytes/100 WBC (Bld) 8.6 % 0-10 [facility] Work Phone: [phone] Blood platelet mean volumeon 09-28-2021 Platelet mean volume (Bld) [Entitic vol] 9.1 fL 6.2-12.0 [facility] Work Phone: Determination of erythrocyte mean corpuscular volume (MCV)on 09-28-2021 MCV (RBC) [Entitic vol] 88.8 fL 81-99 [facility] Work Phone: Glucose Glucometer (BldC) [M ass/Vol]on 09-28-2021 Glucose [Mass/Vol] 188 mg/dL 74-106 [facility] Work Phone: Comment on above: MANAGEMENT OF PATIEN T CARE PER NURSING PROTOCOL Hematocrit Auto (Bld) [Volum e fraction]on 09-28-2021 Hematocrit (Bld) [Volume fraction] 46.6 % 37-47 [facility] Work Phone: [phone] Laboratory - Chemistry and C hemistry - challengeon 09-28-2021 CO2 [Moles/Vol] 24.0 mmol/L 21.0-32.0 [facility] Work Phone: [phone] Urea nitrogen/Creatinine [Mass ratio] 41.0 mg/mg 10-20 [facility] Work Phone: [phone] Laboratory - Hematology and Cell countson 09-28-2021 Erythrocyte distribution width (RBC) [Entitic vol] 43.8 fL 35.1-43.9 [facility] Work Phone: [phone] Erythrocyte distribution width (RBC) [Ratio] 13.5 % 11.6-14.6 [facility] Work Phone: [phone] Immature granulocytes/100 WBC (Bld) 4.400 % 0.0-0.9 [facility] Work Phone: [phone] Comment on above: IG% - Immature Granu locytes (promyelocytes, myelocytes and metamyelocytes) > 1% indicates that a LEFT SHIFT is Present. MCH (RBC) [Entitic mass] 28.0 pg 27.0-32.0 [facility] Work Phone: Nucleated RBC/100 WBC (Bld) [Ratio] 0 % 0-5 [facility] Work Phone: [phone] MCHC Auto (RBC) [Mass/Vol]on 09-28-2021 MCHC (RBC) [Mass/Vol] 31.5 g/dL 32-36 [facility] Work Phone: No Panel Informationon 09-28 Estimated Creatinine Clearance Calc 92.08 ml/min [facility] Work Phone: [phone] Estimated GFR (MDRD) Amer 147 mL/min >60 [facility] Work Phone: [phone] Comment on above: GFR Calc Estimated GFR (MDRD) Non-Af Amer 122 mL/min >60 [facility] Work Phone: [phone] Comment on above: Non- GFR Calc Platelets bldon 09-28-2021 Platelets (Bld) [#/Vol] 490 10*3/uL 150-450 [facility] Work Phone: [phone] Serum or plasma calcium jj urement (mass/volume)on 09-28-2021 Calcium [Mass/Vol] 9.2 mg/dL 8.5-10.1 [facility] Work Phone: [phone] Serum or plasma creatinine m easurement (mass/volume)on 09-28-2021 Creatinine [Mass/Vol] 0.54 mg/dL 0.55-1.02 [facility] Work Phone: Comment on above: The validity of the calculated GFR & GFRAA in patients over 70 years has not been determined. Clinical correlation is essential. Serum or plasma urea nitroge n measurement (mass/volume)on 09-28-2021 Urea nitrogen [Mass/Vol] 22 mg/dL 7-18 [facility] Work Phone: Thin prep Papanicolaou smear with manual screeningon 09-28-2021 Thin prep Papanicolaou smear with manual screening 8 5-15 [facility] Work Phone: Blood lymphocytes/100 leukoc yteson 09-26-2021 Lymphocytes/100 WBC (Bld) 7 % 19-41 [facility] Work Phone: [phone] Blood monocytes/100 leukocyt eson 09-26-2021 Monocytes/100 WBC (Bld) 15 % 0-10 [facility] Work Phone: Blood platelet adequacy dete ction by light microscopyon 09-26-2021 Platelets LM Ql (Bld) MKD INC ADEQ [facility] Work Phone: Blood segmented neutrophils/ 100 leukocyteson 09-26-2021 Segmented neutrophils/100 WBC (Bld) 77 % 47-70 [facility] Work Phone: Laboratory - Hematology and Cell countson 09-26-2021 Myelocytes/100 WBC (Bld) 1 % 0-0 [facility] Work Phone: RBC morphologyon 09-26-2021 RBC morphology finding Nom (Bld) NORM C+C NORMAL NORM C&C [facility] Work Phone: Review by pathologiston 09-04 Pathologist review Shaan (Unsp spec) [Interp] Reviewed [facility] Work Phone: Comment on above: Previous reported re sult: Kori isaacs Edited by: RGOOD on 09/27/21:1017Neutrophilic leukocytosis with left shift. PolycythemiaThrombocytosis.Clinical correlation necessary.Je Browne M.D. 09/27/21 AMENDED REPORT 09/27/21 1017 PATH REV previously reported as: Kori isaacs Total cell counton Cells counted Molgen (Bld/Tiss) [#] 100 MANUAL DIFF [facility] Work Phone: Blood band neutrophil count as percentage of total leukocyteson 09-25-2021 Band form neutrophils/100 WBC (Bld) 1 % 0-5 [facility] Work Phone: [phone] Blood metamyelocytes/100 papa kocyteson 09-25-2021 Metamyelocytes/100 WBC (Bld) 3 % 0-1 [facility] Work Phone: [phone] Blood promyelocytes/100 leuk ocyteson 09-25-2021 Promyelocytes/100 WBC (Bld) 1 % 0-0 [facility] Work Phone: [phone] Basophil percentageon 2021 Basophil percentage 1 % 0-5 [facility] Work Phone: No Panel Informationon 09-22 D-Dimer Quantitative (PE/DVT) 0.56 FEU/ug/m 0.27-0.49 [facility] Work Phone: Comment on above: D-Dimer ELEVATED (>0 .49): Additional studies and clinicalassessments are indicated to conclude diagnosis of:Deep Vein Thrombosis (DVT) or Pulmonary Embolism (PE)CRITICAL VALUE VERIFIED. CALLED TO YVONNE PONCE ([facility]09/22/21 1110 Aren Castaneda.RESULTS READ BACK BY SAME. Blood manual differential co mment interpretation (narrative result)on 09-21-2021 Manual differential comment Shaan (Bld) [Interp] SCANNED [facility] Work Phone: Basophil percentageon 2021 Bilirubin [Mass/Vol] 0.30 mg/dL 0.20-1.00 [facility] Work Phone: Comment on above: For patients on eltr ombopag therapy, use of Dimension Christoval TBIL is not recommended. Protein [Mass/Vol] 5.7 g/dL 6.4-8.2 [facility] Work Phone: Laboratory - Chemistry and C hemistry - challengeon 09-20-2021 ALP [Catalytic activity/Vol] 52 U/L 45-117 [facility] Work Phone: ALT [Catalytic activity/Vol] 28 U/L 13-56 [facility] Work Phone: [phone] Globulin (S) [Mass/Vol] 3.2 g/dL 2.2-4.2 [facility] Work Phone: [phone] Serum or plasma albumin jj urement (mass/volume)on 09-20-2021 Albumin [Mass/Vol] 2.5 g/dL 3.2-5.0 [facility] Work Phone: Serum or plasma albumin/glob ulin mass ratioon 09-20-2021 Albumin/Globulin [Mass ratio] 0.8 {ratio} 0.9-2.4 [facility] Work Phone: Thin prep Papanicolaou smear with manual screeningon 09-20-2021 Thin prep Papanicolaou smear with manual screening 24 U/L 15-37 [facility] Work Phone: Basophil percentageon 2021 Basophil percentage 2.5 mg/dL 2.5-4.9 [facility] Work Phone: Laboratory - Chemistry and C hemistry - challengeon 09-19-2021 Magnesium [Mass/Vol] 2.1 mg/dL 1.6-2.6 [facility] Work Phone: No Panel Informationon 09-19 Thyroid Stimulating Hormone (TSH) 0.74 uIU/mL 0.358-3.74 [facility] Work Phone: Bronchoalveolar lavage cultu re with Gram stainon 09-18-2021 Respiratory Culture Negative [facility] Work Phone: Gram stain for investigation of transfusion reactionon 09-18-2021 Microscopic observation Gram stain Nom (Unsp spec) [facility] Work Phone: No Panel Informationon 09-18 Streptococcus pneumoniae Antigen (M [facility] Work Phone: Serum or plasma C reactive p rotein measurement (mass/volume)on 09-18-2021 CRP [Mass/Vol] 172.00 mg/L 0.0-3.0 [facility] Work Phone: Comment on above: C-Reactive Protein ( CRP) provides useful information for thediagnosis, therapy and monitoring of inflammatory processesand associated diseases. For the evaluation of Relative Riskfor Cardiovascular Disease, a High Sensitivity CRP (HSCRP)should be ordered. Vancomycin troughon 09-19-19 Vancomycin trough [Mass/Vol] 14.1 ug/mL 5.0-15.0 [facility] Work Phone: Comment on above: VANCOMYCIN STANDARED DRUG THERAPY TROUGH LEVEL: 5.0 - 15.0 mg/L VANCOMYCIN HIGH INTENSITY THERAPY TROUGH LEVEL: 15.0 - 20.0 mg/L High Intensity therapy recommended for serious lifethreatening infections include:- Nhmvkmjupj-Ptytomdsyuul-Stpftjvdf (Ventilator/Healtcare Associated)-Sepsis PLEASE CONTACT PHARMACY SERVICES (#[id number]) FOR INTERPRETATIONOF RESULTS. Assessment of wrist artery p atency prior to arterial punctureon 09-17-2021 Arterial patency Wrist artery --pre arterial puncture Positive [facility] Work Phone: [phone] Base excesson 09-17-2021 Base excess Calc (BldV) [Moles/Vol] -2 mmol/L -2-2 [facility] Work Phone: [phone] Basophil percentageon 2021 Basophil percentage 21.8 mmol/L 22-26 [facility] Work Phone: [phone] Basophils/100 WBC (Bld) 88 % 95-99 [facility] Work Phone: [phone] CO2 (BldA) [Partial pressure ]on 09-17-2021 CO2 (Bld) [Partial pressure] 31.7 mm[Hg] 35-45 [facility] Work Phone: [phone] No Panel Informationon 09-17 Bedside Blood Gas PEEP 8 [facility] Work Phone: [phone] Blood Gas Oxygen Percent 100 [facility] Work Phone: Blood Gas Sample Site L Radial [facility] Work Phone: Blood Gas Specimen Type ART [facility] Work Phone: Blood Gas Total CO2 23 mmol/L [facility] Work Phone: Oxygen Delivery Device BiPAP [facility] Work Phone: Oxygen (BldA) [Partial press ure]on 09-17-2021 Oxygen (Bld) [Partial pressure] 51 mmHG 75-100 [facility] Work Phone: pH measurementon 09-17-2021 pH (Unsp spec) 7.45 [pH] 7.35-7.45 [facility] Work Phone: Absolute lymphocyte counton 09-16-2021 Lymphocytes Auto (Unsp spec) [#/Vol] 0.70 10*3/uL 0.83-4.51 [facility] Work Phone: Basophil percentageon 2021 Lactate [Moles/Vol] 1.8 mmol/L 0.4-2.0 [facility] Work Phone: Basophil percentage 0 SEEN /hpf 0-5 [facility] Work Phone: [phone] Lactate [Moles/Vol] 2.2 mmol/L 0.4-2.0 [facility] Work Phone: Comment on above: Critical Result(s) C alled at: 14:10:01 09/16/2021 by: Miriam Marks to Rudi. Results read back by same. Bilirubin [Mass/Vol] 0.20 mg/dL 0.20-1.00 [facility] Work Phone: Comment on above: For patients on eltr ombopag therapy, use of Dimension Christoval TBIL is not recommended. Chloride [Moles/Vol] 109 mmol/L 98-107 [facility] Work Phone: Glucose [Mass/Vol] 141 mg/dL 74-106 [facility] Work Phone: Comment on above: Fasting Glucose resu lt greater than or equal to 126 mg/dL suggests DIABETES MELLITUS per A.D.A. criteria. Potassium [Moles/Vol] 3.7 mmol/L 3.5-5.1 [facility] Work Phone: Protein [Mass/Vol] 6.9 g/dL 6.4-8.2 [facility] Work Phone: Sodium [Moles/Vol] 141 mmol/L 136-145 [facility] Work Phone: Basophils/100 WBC (Bld) 0.5 % 0-1 [facility] Work Phone: Eosinophils/100 WBC (Bld) 0.1 % 0-5 [facility] Work Phone: Neutrophils (Bld) [#/Vol] 6.7 10*3/uL 2.0-7.7 [facility] Work Phone: Neutrophils/100 WBC (Bld) 75.2 % 47-70 [facility] Work Phone: WBC (Bld) [#/Vol] 8.8 10*3/uL 4.4-11.0 [facility] Work Phone: Bilirubin Test strip Ql (U)o n 09-16-2021 Bilirubin Ql (U) Negative Negative [facility] Work Phone: Blood erythrocytes count (nu mber/volume)on 09-16-2021 RBC (Bld) [#/Vol] 4.98 10*6/uL 4.2-5.4 [facility] Work Phone: Blood hemoglobin measurement (mass/volume)on 09-16-2021 Hemoglobin (Bld) [Mass/Vol] 14.2 g/dL 12.0-15.0 [facility] Work Phone: Blood lymphocytes/100 leukoc yteson 09-16-2021 Lymphocytes/100 WBC (Bld) 7.9 % 19-41 [facility] Work Phone: Blood monocytes/100 leukocyt eson 09-16-2021 Monocytes/100 WBC (Bld) 15.6 % 0-10 [facility] Work Phone: Blood platelet mean volumeon 09-16-2021 Platelet mean volume (Bld) [Entitic vol] 8.9 fL 6.2-12.0 [facility] Work Phone: Determination of erythrocyte mean corpuscular volume (MCV)on 09-16-2021 MCV (RBC) [Entitic vol] 90.8 fL 81-99 [facility] Work Phone: [phone] Hematocrit Auto (Bld) [Volum e fraction]on 09-16-2021 Hematocrit (Bld) [Volume fraction] 45.2 % 37-47 [facility] Work Phone: [phone] INR in Blood by Coagulation assayon 09-16-2021 INR Coag (Bld) [Relative time] 1.0 {INR} [facility] Work Phone: Ketones Test strip Ql (U)on 09-16-2021 Ketones Ql (U) 5 mg/dl Negative [facility] Work Phone: Laboratory - Chemistry and C hemistry - challengeon 09-16-2021 ALP [Catalytic activity/Vol] 88 U/L 45-117 [facility] Work Phone: ALT [Catalytic activity/Vol] 28 U/L 13-56 [facility] Work Phone: [phone] CO2 [Moles/Vol] 27.0 mmol/L 21.0-32.0 [facility] Work Phone: Globulin (S) [Mass/Vol] 3.3 g/dL 2.2-4.2 [facility] Work Phone: [phone] Urea nitrogen/Creatinine [Mass ratio] 38.8 mg/mg 10-20 [facility] Work Phone: Laboratory - Coagulationon 0 09-16-2021 aPTT Coag (Bld) [Time] 30.0 s 24.1-36.[address] [facility] Work Phone: PT Coag (PPP) [Time] 13.1 s 11.7-14.9 [facility] Work Phone: [phone] Laboratory - Hematology and Cell countson 09-16-2021 Erythrocyte distribution width (RBC) [Entitic vol] 44.8 fL 35.1-43.9 [facility] Work Phone: [phone] Erythrocyte distribution width (RBC) [Ratio] 13.4 % 11.6-14.6 [facility] Work Phone: [phone] Immature granulocytes/100 WBC (Bld) 0.700 % 0.0-0.9 [facility] Work Phone: [phone] Comment on above: IG% - Immature Granu locytes (promyelocytes, myelocytes and metamyelocytes) > 1% indicates that a LEFT SHIFT is Present. MCH (RBC) [Entitic mass] 28.5 pg 27.0-32.0 [facility] Work Phone: [phone] Nucleated RBC/100 WBC (Bld) [Ratio] 0 % 0-5 [facility] Work Phone: [phone] Laboratory - Microbiology an d Antimicrobial susceptibilityon 09-16-2021 Bacteria identified Cx Nom (Bld) No growth in 5 days. [facility] Work Phone: [phone] MCHC Auto (RBC) [Mass/Vol]on 09-16-2021 MCHC (RBC) [Mass/Vol] 31.4 g/dL 32-36 [facility] Work Phone: [phone] Mucus LM Ql (Urine sed)on Mucus Ql (Urine sed) 0 SEEN /hpf [facility] Work Phone: [phone] Nitrite Test strip Ql (U)on 09-16-2021 Nitrite Ql (U) Positive Negative [facility] Work Phone: [phone] Panel Informationon 09-16 Estimated Creatinine Clearance Calc 66.30 ml/min [facility] Work Phone: [phone] Estimated GFR (MDRD) Amer 101 mL/min >60 [facility] Work Phone: [phone] Comment on above: GFR Calc Estimated GFR (MDRD) Non-Af Amer 83 mL/min >60 [facility] Work Phone: Comment on above: Non- GFR Calc Platelets bldon 09-16-2021 Platelets (Bld) [#/Vol] 373 10*3/uL 150-450 [facility] Work Phone: Protein Test strip Ql (U)on 09-16-2021 Protein Ql (U) 15 mg/dl Negative [facility] Work Phone: Serum or plasma albumin jj urement (mass/volume)on 09-16-2021 Albumin [Mass/Vol] 3.6 g/dL 3.2-5.0 [facility] Work Phone: Serum or plasma albumin/glob ulin mass ratioon 09-16-2021 Albumin/Globulin [Mass ratio] 1.1 {ratio} 0.9-2.4 [facility] Work Phone: Serum or plasma calcium jj urement (mass/volume)on 09-16-2021 Calcium [Mass/Vol] 8.8 mg/dL 8.5-10.1 [facility] Work Phone: Serum or plasma creatinine m easurement (mass/volume)on 09-16-2021 Creatinine [Mass/Vol] 0.75 mg/dL 0.55-1.02 [facility] Work Phone: Comment on above: The validity of the calculated GFR & GFRAA in patients over 70 years has not been determined. Clinical correlation is essential. Serum or plasma urea nitroge n measurement (mass/volume)on 09-16-2021 Urea nitrogen [Mass/Vol] 29 mg/dL 7-18 [facility] Work Phone: [phone] Squamous epithelial cells de tection in urine sediment by light microscopyon 09-16-2021 Epithelial cells.squamous LM Ql (Urine sed) 0 SEEN /hpf 5-10 [facility] Work Phone: Thin prep Papanicolaou smear with manual screeningon 09-16-2021 Thin prep Papanicolaou smear with manual screening 16 U/L 15-37 [facility] Work Phone: Thin prep Papanicolaou smear with manual screening 5 5-15 [facility] Work Phone: Urine blood detectionon 09-03 RBC Ql (U) 10 /ul Negative [facility] Work Phone: RBC Ql (U) 0 SEEN /hpf 0-5 [facility] Work Phone: Urine clarityon 09-16-2021 Clarity (U) Cloudy Clear [facility] Work Phone: Urine color determinationon 09-16-2021 Color (U) Yellow Yellow [facility] Work Phone: Urine glucose detectionon Glucose Ql (U) Normal mg/dl Normal [facility] Work Phone: [phone] Urine leukocyte esterase det ection by dipstickon 09-16-2021 Leukocyte esterase Test strip Ql (U) Negative Negative [facility] Work Phone: Urine pHon 09-16-2021 pH (U) 5.0 [pH] 5.0 - 8.0 [facility] Work Phone: Urine sediment bacteria coun t by microscopy (number/high power field)on 09-16-2021 Bacteria LM.HPF (Urine sed) [#/Area] 2 /[HPF] None Seen [facility] Work Phone: Urine specific gravity measu rementon 09-16-2021 Specific gravity (U) [Rel density] 1.025 1.002-1.030 [facility] Work Phone: Urobilinogen Auto test strip Ql (U)on 09-16-2021 Urobilinogen Ql (U) Normal mg/dl Normal [facility] Work Phone: Hepatic function 2000 panelo n 04-09-2021 Albumin [Mass/Vol] 4.4 g/dL 3.2 - 5.2 g/dL [facility] ALP [Catalytic activity/Vol] 100 U/L 40 - 150 U/L [facility] ALT [Catalytic activity/Vol] 22 U/L 0 - 40 U/L [facility] AST [Catalytic activity/Vol] 17 U/L 0 - 45 U/L [facility] Bilirubin [Mass/Vol] 0.2 mg/dL 0.0 - 1 .3 mg/dL [facility] Bilirubin.conjugated [Mass/Vol] mg/dL 0.0 - 0.4 mg/dL [facility] Interpretation and review of laboratory results Normal [facility] Protein [Mass/Vol] 6.5 g/dL 6.0 - 8.0 g/dL [facility] IGG, IGA, IGM IMMUNOGLOBULIN SOrdered By: Huong Jacobs on 04-09-2021 Interpretation and review of laboratory results Abnormal [facility] Laboratory - Chemistry and C hemistry - challengeon 04-09-2021 25-hydroxyvitamin D [Mass/Vol] 64 ng/mL 30 - 100 ng/mL [facility] Comment on above: Vitamin D status: Deficiency: <10 ng/mL Insufficiency: 10-30 ng/mL Sufficiency: 30-100 ng/mL Toxicity: >100 ng/mL Laboratory - Chemistry and C hemistry - challengeOrdered By: Huong Milan on 04-09-2021 IgA [Mass/Vol] 151 mg/dL 84 - 381 mg/dL [facility] IgG [Mass/Vol] 523 mg/dL Low 541 - 1694 mg/dL [facility] IgM [Mass/Vol] 60 mg/dL 43 - 238 mg/dL [facility] Laboratory - Hematology and Cell countson 04-09-2021 Basophils (Bld) [#/Vol] 0.07 10*3/uL [facility] Basophils/100 [facility] (Bld) 0.6 % [facility] [#/Vol] 0.04 10*3/uL [facility] Eosinophils/100 WBC (Bld) 0.4 % [facility] Erythrocyte distribution width (RBC) [Entitic vol] 13.8 % 11.6 - 14.8 % [facility] Hematocrit (Bld) [Volume fraction] 50.0 % High 36.0 - 46.0 % [facility] Hemoglobin (Bld) [Mass/Vol] 15.4 g/dL 12.0 - 16.0 g/dL [facility] Immature granulocytes (Bld) [#/Vol] 0.12 10*3/uL [facility] Immature granulocytes/100 WBC (Bld) 1.10 % [facility] Comment on above: The IG parameter is the percentage of metamyelocytes, myelocytes and promyelocytes. An immature granulocyte count (IG) of 1% or more suggests the possibility of infection, an IG count of 3% is very likely related to an infection. Lymphocytes (Bld) [#/Vol] 0.94 10*3/uL [facility] Lymphocytes/100 WBC (Bld) 8.4 % [facility] MCH (RBC) [Entitic mass] 28.1 pg 26. 0 - 34.0 pg [facility] MCHC (RBC) [Mass/Vol] 30.8 g/dL Low 31.0 - 37.0 g/dL [facility] MCV (RBC) [Entitic vol] 91.2 fL 80.0 - 100.0 fL [facility] Monocytes (Bld) [#/Vol] 0.93 10*3/uL [facility] Monocytes/100 WBC (Bld) 8.3 % [facility] Neutrophils (Bld) [#/Vol] 9.12 10*3/uL [facility] Neutrophils/100 WBC (Bld) 81.2 % [facility] Nucleated RBC (Bld) [#/Vol] 0.00 10*3/uL [facility] Nucleated RBC/100 WBC (Bld) [Ratio] 0.0 % [facility] Platelet mean volume (Bld) [Entitic vol] 9.4 fL 9.4 - 12.4 fL [facility] Platelets (Bld) [#/Vol] 417 10*3/uL [facility] RBC (Bld) [#/Vol] 5.48 10*6/uL [facility] ealth WBC (Bld) [#/Vol] 11.22 10*3/uL [facility] No Panel Informationon 04-09 Interpretation and review of laboratory results Abnormal [facility] VITAMIN D, TOTAL, 25-OHon Interpretation and review of laboratory results Normal [facility] Assay performed usin g [employer] CLIA methodology. [facility] MR BRAIN WITHOUT CONTRASTon 10-18-2019 No acute intracrania l abnormality. Underlying atrophy and black holes. Stable burden of T2/FLAIR signal abnormalities compatible with demyelination. [facility]/[place] Workstation ID: [id number] [facility] EXAMINATION: MR BRAI N WITHOUT CONTRAST HISTORY: [...] compatible with the patient's diagnosis of demyelination. [facility] Interface, Rad In Fuji Speechq - 10/18/2019 [...] compatible with demyelination. [facility] Workstation ID: [id number] [facility] POC Creatinineon 09-28-2018 Creatinine mass conc 0.6 mg/dL 0.4 - 1 .1 mg/dL [facility] Interpretation and review of laboratory results Normal [facility] Comprehensive Metabolic Pane dwight 01-19-2018 Albumin mass conc 4.7 g/dL Invalid Interpretation Code 3.2 - 5.2 g/dL [facility] ALP enzyme act/vol 76 U/L Invalid Interpretation Code 40 - 150 U/L [facility] ALT enzyme act/vol 14 U/L Invalid Interpretation Code 0 - 40 U/L [facility] Anion gap 3 molar conc 17 mmol/L Invalid Interpretation Code 10 - 20 mmol/L [facility] AST enzyme act/vol 15 U/L Invalid Interpretation Code 0 - 45 U/L [facility] Bilirubin mass conc 0.3 mg/dL Invalid Interpretation Code 0 - 1.3 mg/dL [facility] Calcium mass conc 10.2 mg/dL Invalid Interpretation Code 8.4 - 10.2 mg/dL [facility] Chloride molar conc 107 mmol/L Invalid Interpretation Code 98 - 108 mmol/L [facility] Creatinine mass conc 0.47 mg/dL Invalid Interpretation Code 0.4 - 1.1 mg/dL [facility] GFR/1.73 sq M predicted among non-blacks MDRD vol rate/area (S/P/Bld) The eGFR should be used for monitoring renal function only and not for medication dosing. Invalid Interpretation Code [facility] GFR/1.73 sq M.predicted CKD-EPI vol rate/area (S/P/Bld) 108 Invalid Interpretation Code >=60 mL/min/1.73 m2 [facility] Glucose mass conc 96 mg/dL Invalid Interpretation Code 65 - 99 mg/dL [facility] HCO3 molar conc 26 mmol/L Invalid Interpretation Code 21 - 32 mmol/L [facility] Interpretation and review of laboratory results Abnormal Invalid Interpretation Code [facility] Potassium molar conc 4.2 mmol/L Invalid Interpretation Code 3.5 - 5.1 mmol/L [facility] Protein mass conc 6.9 g/dL Invalid Interpretation Code 6 - 8 g/dL [facility] Sodium molar conc 146 mmol/L High 135 - 145 mmol/L [facility] Urea nitrogen mass conc 33 mg/dL High 8 - 25 mg/dL [facility] Urea nitrogen/Creatinine mass ratio 70.2 mg/mg High [facility] Vitamin D, Total, 25-OHon 25-Hydroxyvitamin D2+25-Hydroxyvitamin D3 mass conc 72 ng/mL Invalid Interpretation Code 30 - 100 ng/mL [facility] Comment on above: Vitamin D status: De ficiency: <10 ng/mL Insufficiency: 10-30 ng/mL Sufficiency: 30-100 ng/mL Toxicity: >100 ng/mL Interpretation and review of laboratory results Normal Invalid Interpretation Code [facility] Assay performed usin patricia Diasorin CLIA methodology. Invalid Interpretation Code [facility] CBC and Differentialon 08-25 Creatinine The following orders were created for panel order CBC and Differential. Procedure Abnormality Status --------- ------ CBC Auto Differential[[id number]] Abnormal Final result Please view results for these tests on the individual orders. Invalid Interpretation Code [facility] Metabolic Pane dwight 08-25-2017 Alanine aminotransferase (ALT) 18 U/L Invalid Interpretation Code 0 - 40 U/L [facility] Albumin 4.6 g/dL Invalid Interpretation Code 3.2 - 5.2 g/dL [facility] Alkaline phosphatase (ALP) 82 U/L Invalid Interpretation Code 40 - 150 U/L [facility] Anion gap 19 mmol/L Invalid Interpretation Code 10 - 20 mmol/L [facility] Aspartate aminotransferase (AST) 15 U/L Invalid Interpretation Code 0 - 45 U/L [facility] Bicarbonate (HCO3) 26 mmol/L Invalid Interpretation Code 21 - 32 mmol/L [facility] Bilirubin (total) mg/dL Invalid Interpretation Code 0 - 1.3 mg/dL [facility] BUN/Creatinine Ratio 48.1 mg/mg High 10.0 - 20.0 [facility] Calcium 10.3 mg/dL High 8.4 - 10.2 mg/dL [facility] Chloride 103 mmol/L Invalid Interpretation Code 98 - 108 mmol/L [facility] Creatinine 0.54 mg/dL Invalid Interpretation Code 0.4 - 1.1 mg/dL [facility] eGFR (non-black) The eGFR should be used for monitoring renal function only and not for medication dosing. Invalid Interpretation Code [facility] eGFR (non-black) 104 mL/min/{1.73_m2} Invalid Interpretation Code >=60 [facility] Glucose 86 mg/dL Invalid Interpretation Code 65 - 99 mg/dL [facility] Interpretation and review of laboratory results Abnormal Invalid Interpretation Code [facility] Potassium 4.3 mmol/L Invalid Interpretation Code 3.5 - 5.1 mmol/L [facility] Protein 6.9 g/dL Invalid Interpretation Code 6 - 8 g/dL [facility] Sodium 144 mmol/L Invalid Interpretation Code 135 - 145 mmol/L [facility] Urea nitrogen 26 mg/dL High 8 - 25 mg/dL [facility] Vitamin D, Total, 25-OHon Vit D, 25-Hydroxy 109 ng/mL High 30 - 100 ng/mL [facility] Vitamin D, Total, 25-OH Assay performed using [employer] CLIA methodology. Invalid Interpretation Code [facility] CBC and Differentialon 05-25 Creatinine The following orders were created for panel order CBC and Differential. Procedure Abnormality Status --------- ------ CBC Auto Differential[[id number]] Abnormal Final result Please view results for these tests on the individual orders. Invalid Interpretation Code [facility] Work Phone: Bronchoalveolar lavage cultu re with Gram stain Respiratory Culture Negative [facility] Work Phone: Culture, urine Bacteria identified Cx Nom (U) Mixed Gram Pos & Gram Neg Org [facility] Work Phone: Bacteria identified Cx Nom (U) Yeast [facility] Work Phone: Bacteria identified Cx Nom (U) Escherichia coli [facility] Work Phone: Gram stain for investigation of transfusion reaction Microscopic observation Gram stain Nom (Unsp spec) [facility] Work Phone: Laboratory - Microbiology an d Antimicrobial susceptibility Bacteria identified Cx Nom (Bld) No growth in 5 days. [facility] Work Phone: No Panel Information Streptococcus pneumoniae Antigen (M [facility] Work Phone: Vital Signs Date Time Vital Sign Value Performing Clinician Facility 07-05-2022 11:24-0500 Body height 162.[address] Joan Hughes Work Phone: [facility] 09-28-2021 12:05-0400 SaO2% (BldA) [Mass fraction] 98 % Dr. Joan Hughes Work Phone: [facility] Work Phone: 09-28-2021 09:00-0400 Body temperature 98 [degF] Dr. Joan Hughes Work Phone: [facility] Work Phone: 09-28-2021 09:00-0400 Diastolic blood pressure 79 mm[Hg] Dr. Joan Hughes Work Phone: [facility] Work Phone: 09-28-2021 09:00-0400 Heart rate 100 /min Dr. Joan Hughes Work Phone: [facility] Work Phone: 09-28-2021 09:00-0400 Respiratory rate 14 /min Dr. Joan Hughes Work Phone: [facility] Work Phone: 09-28-2021 09:00-0400 Systolic blood pressure 117 mm[Hg] Dr. Joan Hughes Work Phone: [facility] Work Phone: 09-28-2021 05:32-0400 Body weight 66.[address] Joan Hughes Work Phone: [facility] Work Phone: 09-25-2021 09:36-0400 Inhaled oxygen flow rate 2 L/min Dr. Joan Hughes Work Phone: [facility] Work Phone: 09-24-2021 11:58-0400 Body height 162.[address] Joan Hughes Work Phone: [facility] Work Phone: 09-23-2021 16:35-0400 Inhaled oxygen concentration 41 % Dr. Joan Hughes Work Phone: [facility] Work Phone: 09-16-2021 14:53-0400 Body mass index (BMI) [Ratio] 25.7 kg/m2 Dr. Joan Hughes Work Phone: [facility] Work Phone: 09-16-2021 14:11-0400 Body temperature 99.3 [degF] [facility] Work Phone: 09-16-2021 14:11-0400 Diastolic blood pressure 56 mm[Hg] [facility] Work Phone: 09-16-2021 14:11-0400 Heart rate 114 /min [facility] Work Phone: 09-16-2021 14:11-0400 Respiratory rate 16 /min [facility] Work Phone: 09-16-2021 14:11-0400 SaO2% (BldA) [Mass fraction] 95 % [facility] Work Phone: 09-16-2021 14:11-0400 Systolic blood pressure 132 mm[Hg] [facility] Work Phone: 09-16-2021 13:00-0400 Body height 162.56 cm [facility] Work Phone: 09-16-2021 13:00-0400 Body mass index (BMI) [Ratio] 26.8 kg/m2 [facility] Work Phone: 09-16-2021 13:00-0400 Body weight 70.8 kg [facility] Work Phone: 04-09-2021 13:25-0400 Body temperature 97.9 [degF] Chair 7 [facility] 04-09-2021 13:25-0400 Diastolic blood pressure 80 mm[Hg] Chair 7 [facility] 04-09-2021 13:25-0400 Heart rate 123 /min Chair 7 [facility] 04-09-2021 13:25-0400 SaO2% (BldA) [Mass fraction] 97 % Chair 7 [facility] 04-09-2021 13:25-0400 Systolic blood pressure 133 mm[Hg] Chair 7 [facility] 04-09-2021 11:06-0400 Respiratory rate 16 /min Chair 7 [facility] 04-09-2021 07:57-0400 Body height 162.6 cm Willard Epperson MD Work Phone: [facility] 04-09-2021 07:57-0400 Body mass index (BMI) [Ratio] 25.06 kg/m2 Willard Epperson MD Work Phone: [facility] 04-09-2021 07:57-0400 Body weight 66.22 kg Willard Epperson MD Work Phone: [facility] 04-09-2021 07:57-0400 Diastolic blood pressure 65 mm[Hg] Willard Epperson MD Work Phone: [facility] 04-09-2021 07:57-0400 Heart rate 111 /min Willard Epperson MD Work Phone: [facility] 04-09-2021 07:57-0400 Systolic blood pressure 123 mm[Hg] Willard Epperson MD Work Phone: [facility] 10-16-2020 12:50-0400 Body temperature 98.29 [degF] Chair 2 [facility] 10-16-2020 12:50-0400 Diastolic blood pressure 63 mm[Hg] Chair 2 [facility] 10-16-2020 12:50-0400 Heart rate 130 /min Chair 2 [facility] 10-16-2020 12:50-0400 SaO2% (BldA) [Mass fraction] 96 % Chair 2 [facility] 10-16-2020 12:50-0400 Systolic blood pressure 128 mm[Hg] Chair 2 [facility] 10-16-2020 11:34-0400 Respiratory rate 16 /min Chair 2 [facility] 04-17-2020 14:51-0500 BP Diastolic 70 mm[Hg] Chair 2 [facility] 04-17-2020 14:51-0500 BP Systolic 136 mm[Hg] Chair 2 [facility] 04-17-2020 14:51-0500 Pulse (Heart Rate) 126 /min Chair 2 [facility] 04-17-2020 14:51-0500 Pulse Oximetry 97 % Chair 2 [facility] 04-17-2020 14:51-0500 Respiratory Rate 16 /min Chair 2 [facility] 04-17-2020 14:48-0500 Body Temperature 98.4 [degF] Chair 2 [facility] 04-17-2020 10:41-0500 BMI (Body Mass Index) 22.31 kg/m2 Willard Epperson [facility] 04-17-2020 10:41-0500 Body weight 58.97 kg Willard Epperson [facility] 04-17-2020 10:41-0500 BP Diastolic 80 mm[Hg] Willard Epperson [facility] 04-17-2020 10:41-0500 BP Systolic 131 mm[Hg] Willard Epperson [facility] 04-17-2020 10:41-0500 Height 162.6 cm Willard Epperson [facility] 04-17-2020 10:41-0500 Pulse (Heart Rate) 86 /min Willard Epperson [facility] 10-18-2019 13:54-0400 Body Temperature 97.5 [degF] Chair 1 [facility] 10-18-2019 13:54-0400 BP Diastolic 79 mm[Hg] Chair 1 [facility] 10-18-2019 13:54-0400 BP Systolic 137 mm[Hg] Chair 1 [facility] 10-18-2019 13:54-0400 Pulse (Heart Rate) 112 /min Chair 1 [facility] 10-18-2019 13:54-0400 Pulse Oximetry 95 % Chair 1 [facility] 10-18-2019 13:54-0400 Respiratory Rate 20 /min Chair 1 [facility] 10-18-2019 07:03-0400 BMI (Body Mass Index) 22.31 kg/m2 Willard Epperson [facility] 10-18-2019 07:03-0400 Body weight 58.97 kg Willard Epperson [facility] 10-18-2019 07:03-0400 Height 162.6 cm Willard Epperson [facility] 04-12-2019 12:17-0500 BMI (Body Mass Index) 22.31 kg/m2 Willard Epperson [facility] 04-12-2019 12:17-0500 Body weight 58.97 kg Willard Epperson [facility] 04-12-2019 12:17-0500 BP Diastolic 78 mm[Hg] Willard Epperson [facility] 04-12-2019 12:17-0500 BP Systolic 124 mm[Hg] Willard Epperson [facility] 04-12-2019 12:17-0500 Height 162.6 cm Willard Epperson [facility] 04-12-2019 12:17-0500 Pulse (Heart Rate) 106 /min Willard Epperson [facility] 04-12-2019 12:12-0500 Body Temperature 97.9 [degF] Chair 5 [facility] 04-12-2019 12:12-0500 BP Diastolic 81 mm[Hg] Chair 5 [facility] 04-12-2019 12:12-0500 BP Systolic 134 mm[Hg] Chair 5 [facility] 04-12-2019 12:12-0500 Pulse (Heart Rate) 104 /min Chair 5 [facility] 04-12-2019 12:12-0500 Pulse Oximetry 97 % Chair 5 [facility] 04-12-2019 12:12-0500 Respiratory Rate 16 /min Chair 5 [facility] 10-12-2018 13:25-0400 Body Temperature 98.1 [degF] Chair 1 [facility] 10-12-2018 13:25-0400 BP Diastolic 74 mm[Hg] Chair 1 [facility] 10-12-2018 13:25-0400 BP Systolic 137 mm[Hg] Chair 1 [facility] 10-12-2018 13:25-0400 Pulse (Heart Rate) 130 /min Chair 1 [facility] 10-12-2018 13:25-0400 Pulse Oximetry 95 % Chair 1 [facility] 10-12-2018 10:14-0400 Respiratory Rate 14 /min Chair 1 [facility] 09-28-2018 15:44-0400 BMI (Body Mass Index) 22.31 kg/m2 Willard Epperson [facility] 09-28-2018 15:44-0400 Body weight 58.97 kg Willard Epperson [facility] 09-28-2018 15:44-0400 BP Diastolic 80 mm[Hg] Willard Epperson [facility] 09-28-2018 15:44-0400 BP Systolic 145 mm[Hg] Willard Epperson [facility] 09-28-2018 15:44-0400 Height 162.6 cm Willard Epperson [facility] 09-28-2018 15:44-0400 Pulse (Heart Rate) 89 /min Willard Epperson [facility] 09-28-2018 11:38-0400 BMI (Body Mass Index) 22.31 kg/m2 Willard Epperson [facility] 09-28-2018 11:38-0400 Height 162.6 cm Willard Epperson [facility] 09-28-2018 11:38-0400 Weight 58.97 kg Willard Epperson [facility] 01-19-2018 11:34-0400 BMI (Body Mass Index) 20.77 kg/m2 Willard Epperson [facility] 01-19-2018 11:34-0400 BP Diastolic 70 mm[Hg] Willard Epperson [facility] 01-19-2018 11:34-0400 BP Systolic 118 mm[Hg] Willard Epperson [facility] 01-19-2018 11:34-0400 Height 162.6 cm Willard Epperson [facility] 01-19-2018 11:34-0400 Pulse (Heart Rate) 76 /min Willard Epperson [facility] 01-19-2018 11:34-0400 Weight 54.88 kg Willard Epperson [facility] 10-11-2017 14:08-0400 Body Temperature 98.1 [degF] Chair 1 [facility] 10-11-2017 14:08-0400 BP Diastolic 79 mm[Hg] Chair 1 [facility] 10-11-2017 14:08-0400 BP Systolic 131 mm[Hg] Chair 1 [facility] 10-11-2017 14:08-0400 Pulse (Heart Rate) 106 /min Chair 1 [facility] 10-11-2017 14:08-0400 Pulse Oximetry 95 % Chair 1 [facility] 10-11-2017 14:08-0400 Respiratory Rate 14 /min Chair 1 [facility] 08-25-2017 11:31-0400 BMI (Body Mass Index) 22.31 kg/m2 Willard Epperson [facility] 08-25-2017 11:31-0400 BP Diastolic 83 mm[Hg] Willard Epperson [facility] 08-25-2017 11:31-0400 BP Systolic 137 mm[Hg] Willard Epperson [facility] 08-25-2017 11:31-0400 Height 162.6 cm Willard Epperson [facility] 08-25-2017 11:31-0400 Pulse (Heart Rate) 81 /min Willard Epperson [facility] 08-25-2017 11:31-0400 Weight 58.97 kg Willard Epperson [facility] 05-25-2017 09:23-0500 BMI (Body Mass Index) 22.49 kg/m2 Willard Epperson [facility] Work Phone: 05-25-2017 09:23-0500 BP Diastolic 74 mm[Hg] Willard Epperson [facility] Work Phone: 05-25-2017 09:23-0500 BP Systolic 104 mm[Hg] Willard Epperson [employer] Work Phone: 05-25-2017 09:23-0500 Height 162.6 cm Willard Epperson [employer] Work Phone: 05-25-2017 09:23-0500 Pulse (Heart Rate) 106 /min Willard Epperson [employer] Work Phone: 05-25-2017 09:23-0500 Weight 59.42 kg Willard Epperson [employer] Work Phone: 05-04-2017 13:10-0500 Body Temperature 98.29 [degF] Physician No [employer] Work Phone: 05-04-2017 13:10-0500 BP Diastolic 77 mm[Hg] Physician No [employer] Work Phone: 05-04-2017 13:10-0500 BP Systolic 121 mm[Hg] Physician No [employer] Work Phone: 05-04-2017 13:10-0500 Pulse (Heart Rate) 104 /min Physician No [employer] Work Phone: 05-04-2017 13:10-0500 Pulse Oximetry 96 % Physician No [employer] Work Phone: 05-04-2017 11:55-0500 Respiratory Rate 14 /min Physician No [employer] Work Phone: 04-13-2017 16:00-0500 Body Temperature 98.01 [degF] Physician No [employer] Work Phone: 04-13-2017 16:00-0500 BP Diastolic 77 mm[Hg] Physician No [employer] Work Phone: 04-13-2017 16:00-0500 BP Systolic 137 mm[Hg] Physician No [employer] Work Phone: 04-13-2017 16:00-0500 Pulse (Heart Rate) 115 /min Physician No [employer] Work Phone: 04-13-2017 16:00-0500 Pulse Oximetry 96 % Physician Mercedes [facility] Work Phone: 04-13-2017 16:00-0500 Respiratory Rate 16 /min Physician Mercedes [facility] Work Phone: 02-13-2017 09:07-0400 BMI (Body Mass Index) 21.8 kg/m2 [facility]pperson [facility] Work Phone: 02-13-2017 09:07-0400 BP Diastolic 81 mm[Hg] Willard Epperson [facility] Work Phone: 02-13-2017 09:07-0400 BP Systolic 145 mm[Hg] Willard Epperson [facility] Work Phone: 02-13-2017 09:07-0400 Height 162.6 cm Willard Epperson [facility] Work Phone: 02-13-2017 09:07-0400 Pulse (Heart Rate) 73 /min Willard Epperson [facility] Work Phone: 02-13-2017 09:07-0400 Weight 57.61 kg Willard Epperson [facility] Work Phone: Encounters Encounter Date Encounter Type Care Provider Facility Start: 12-04-2024 ambulatory Efvannessa Ruiz OLS Fa cility:[facility] Start: 11-15-2024 ambulatory Efadalbertoduckchetan Ruiz OLS Fa cility:[facility] Start: 11-15-2024 Registered Referred Breanne Ruiz MD -[facility] Start: 11-07-2024 ambulatory Efvannessa Vange OLS Fa cility:[facility] Start: 11-07-2024 Registered Referred Breanne Ruiz MD -[facility] Start: 11-05-2024 ambulatory Britney CULVER Fac ility:[facility] Start: 11-05-2024 Registered Referred Britney Worthington NP-C -[facility] Start: 10-11-2024 End: 10-11-[address] Joan Hughes MD Work Phone: [facility] Work Phone: Start: 10-11-2024 End: 10-11-2024 [facility]: 10-11-2024 [facility] Start: 10-11-2024 End: 10-11-2024 ambulatory Britney CULVER Facility:[facility] Start: 10-08-2024 End: 10-08-[address] Joan Hugehs MD Work Phone: [facility] Work Phone: Start: 10-08-2024 End: 10-08-2024 [facility] Start: 10-08-2024 End: 10-08-2024 ambulatory Breanne CULVER Facility:[facility] Start: 09-04-2024 End: 09-04-2024 [facility] Start: 09-04-2024 [facility] Start: 09-03-2024 End: 09-04-2024 ambulatory Breanne CULVER Facility:[facility] Start: 09-03-2024 End: 09-03-[address] Breanne Ruiz MD -[facility] Work Phone: Start: 09-03-2024 End: 09-03-2024 [facility] Start: 09-03-2024 [facility] Start: 09-03-2024 End: 09-03-2024 ambulatory Breanne CULVER Facility:[facility] Start: 08-19-2024 End: 08-19-2024 ambulatory Joan Hughes Facility:[facility] Start: 08-19-2024 End: 08-19-2024 [facility] Start: 08-19-2024 End: 08-19-[address] Joan Hughes MD Work Phone: [facility] Work Phone: Start: 08-19-2024 End: 08-19-2024 [facility] Start: 08-19-2024 End: 08-19-2024 ambulatory Efewlalitabe Sara OLS Facility:[facility] Start: 08-06-2024 End: 08-06-[address] Joan Hughes MD Work Phone: [facility] Work Phone: Start: 08-06-2024 End: 08-06-2024 [facility] Start: 08-06-2024 [facility] Start: 08-05-2024 End: 08-06-2024 ambulatory Efewtracy Ruiz OLS Facility:[facility] Start: 08-05-2024 End: 08-05-2024 [facility] Start: 07-09-2024 End: 07-09-[address] Breanne Ruiz MD [facility] Work Phone: Start: 07-09-2024 End: 07-09-2024 ambulatory [facility] Facility:[facility] Start: 07-09-2024 [facility] Start: 06-18-2024 End: 06-18-2024 ambulatory [facility] Facility:[facility] Start: 06-18-2024 End: 06-18-2024 Patient encounter procedure Britney BLANCO [facility] Work Phone: Start: 06-11-2024 ambulatory Efvannessa Vange OLS Fa cility:[facility] Start: 06-11-2024 Registered Referred Breanne LUIS [facility] Start: 06-07-2024 End: 06-07-2024 ambulatory Joan Hughes Facility:[facility] Start: 06-07-2024 End: 06-07-2024 Patient encounter procedure Britney Worthington [employer]ENT[employer]- -[facility] Work Phone: Start: 05-07-2024 End: 05-07-2024 ambulatory Joan Dionanalilia Facility:[facility] Start: 05-07-2024 End: 05-07-2024 ambulatory Efewongbe Oleghe OLS Facility:[facility] Start: 05-01-2024 End: 05-01-2024 ambulatory Britney Worthington [employer] REPRESENTATIVE Facility:[facility] Start: 04-15-2024 End: 04-15-2024 ambulatory Efewongbe Oleghe OLS Facility:[facility] Start: 04-10-2024 End: 04-10-2024 ambulatory Joan Hughes Facility:[facility] Start: 04-09-2024 End: 04-09-2024 ambulatory Efewongbe Oleghe OLS Facility:[facility] Start: 03-28-2024 End: 03-28-2024 ambulatory Britney Worthington [employer] SAL[employer] REPRESENTATIVE Facility:[facility] Start: 03-19-2024 End: 03-19-2024 ambulatory Britney Worthington [employer] SAL[employer] REPRESENTATIVE Facility:[facility] Start: 03-07-2024 ambulatory Efewongbe Oleghe OLS Fa cility:[facility] Start: 03-05-2024 End: 03-05-2024 ambulatory Efewongbe Oleghe Facility:[facility] Start: 02-27-2024 ambulatory Efewongbe Oleghe OLS Fa cility:[facility] Start: 02-07-2024 End: 02-07-2024 ambulatory Joan [facility] Facility:[facility] Start: 02-06-2024 ambulatory Efewongbe Oleghe OLS Fa cility:[facility] Start: 01-22-2024 ambulatory Efewongbe Oleghe OLS Fa cility:[facility] Start: 01-09-2024 End: 01-10-2024 ambulatory Efewongbe Oleghe OLS Facility:[facility] Start: 01-09-2024 End: 01-09-2024 ambulatory Efewongbe Oleghe OLS Facility:[facility] Start: 12-25-2023 End: 12-25-2023 ambulatory Joan Hughes Facility:[facility] Start: 09-12-2023 End: 09-12-[address] Joan Hughes Work Phone: [facility] Work Phone: Start: 09-05-2023 End: 09-05-[address] Joan Hughes Work Phone: [facility] Work Phone: Start: 09-05-2023 End: 09-05-[address] Joan Hughes Work Phone: [facility] Start: 08-14-2023 End: 08-14-[address] Joan Hughes Work Phone: [facility] Work Phone: Start: 08-10-2023 End: 08-10-[address] Joan Hughes Work Phone: [facility] Start: 08-10-[address] Joan lacy Work Phone: [facility] Start: 08-08-2023 End: 08-08-[address] Joan Hughes Work Phone: [facility] Work Phone: Start: 08-08-2023 End: 08-08-[address] Joan Hughes Work Phone: [facility] Start: 07-17-2023 End: 07-17-[address] Joan Hughes Work Phone: [facility] Work Phone: Start: 07-17-2023 End: 07-17-[address] Joan Hughes Work Phone: [facility] Start: 07-11-2023 End: 07-11-[address] Joan Hughes Work Phone: [facility] Work Phone: Start: 07-03-2023 End: 07-03-[address] Joan Hughes Work Phone: [facility] Work Phone: Start: 07-03-2023 End: 07-03-[address] Joan Hughes Work Phone: [facility] Start: 07-03-[address] Joan lacy Work Phone: [facility] Start: 06-26-2023 End: 06-26-[address] Joan Hughes Work Phone: [facility] Work Phone: Start: 06-08-2023 End: 06-08-[address] Joan Hughes Work Phone: [facility] Work Phone: Start: 06-06-2023 End: 06-06-[address] Joan Hughes Work Phone: [facility] Work Phone: Start: 06-06-2023 End: 06-06-[address] Joan Hughes Work Phone: [facility] Start: 05-09-2023 End: 05-09-[address] Joan Hughes Work Phone: [facility] Work Phone: Start: 05-09-2023 End: 05-09-[address] Joan Hughes Work Phone: [facility] Work Phone: Start: 05-09-2023 End: 05-09-[address] Joan Hughes Work Phone: [facility] Start: 05-01-2023 End: 05-01-[address] Joan Hughes Work Phone: [facility] Work Phone: Start: 03-14-2023 End: 03-14-[address] Joan Hughes Work Phone: [facility] Work Phone: Start: 03-10-2023 End: 03-10-[address] Joan Hughes Work Phone: [facility] Work Phone: Start: 02-27-2023 End: 02-27-2023 Patient encounter procedure Dr. Joan Hughes Work Phone: [facility] Work Phone: Start: 02-22-2023 End: 02-22-[address] Joan Hughes Work Phone: [facility] Start: 02-22-[address] Joan lacy Work Phone: [facility] Start: 02-21-2023 End: 02-21-[address] Joan Hughes Work Phone: [facility] Start: 02-21-[address] Joan lacy Work Phone: [facility] Start: 02-13-2023 End: 02-13-[address] Joan Hughes Work Phone: [facility] Work Phone: Start: 02-13-2023 End: 02-13-[address] Joan Hughes Work Phone: [facility] Start: 02-13-[address] Joan lacy Work Phone: [facility] Start: 02-07-2023 End: 02-07-[address] Joan Hughes Work Phone: [facility] Work Phone: Start: 02-07-2023 End: 02-07-[address] Joan Hughes Work Phone: [facility] Start: 01-24-2023 End: 01-24-[address] Joan Hughes Work Phone: [facility] Start: 01-24-[address] Joan lacy Work Phone: [facility] Start: 01-10-2023 End: 01-10-[address] Joan Hughes Work Phone: [facility] Work Phone: Start: 01-10-2023 End: 01-10-[address] Joan Hughes Work Phone: [facility] Start: 01-10-[address] Joan lacy Work Phone: [facility] Start: 01-03-2023 End: 01-03-[address] Joan Hughes Work Phone: [facility] Work Phone: Start: 12-27-2022 End: 12-27-[address] Joan Hughes Work Phone: [facility] Work Phone: Start: 12-27-2022 End: 12-27-[address] Joan Hughes Work Phone: [facility] Start: 12-27-[address] Joan lacy Work Phone: [facility] Start: 12-23-2022 End: 12-23-[address] Joan Hughes Work Phone: [facility] Work Phone: Start: 12-13-2022 End: 12-13-[address] Joan Hughes Work Phone: [facility] Work Phone: Start: 12-13-2022 End: 12-13-[address] Joan Hughes Work Phone: [facility] Start: 12-13-[address] Joan lacy Work Phone: [facility] Start: 11-29-2022 End: 11-29-[address] Joan Hughes Work Phone: [facility] Work Phone: Start: 11-29-2022 End: 11-29-[address] Joan Hughes Work Phone: [facility] Start: 11-29-[address] Joan lacy Work Phone: [facility] Start: 11-15-2022 End: 11-15-[address] Joan Hughes Work Phone: [facility] Start: 11-15-[address] Joan lacy Work Phone: [facility] Start: 11-08-2022 End: 11-08-[address] Joan Hughes Work Phone: [facility] Work Phone: Start: 11-01-2022 End: 11-01-[address] Joan Hughes Work Phone: [facility] Work Phone: Start: 11-01-2022 End: 11-01-[address] Joan Hughes Work Phone: [facility] Start: 10-27-2022 End: 10-27-[address] Joan Hughes Work Phone: [facility] Work Phone: Start: 10-18-2022 End: 10-18-[address] Joan Hughes Work Phone: [facility] Start: 10-18-[address] Joan lacy Work Phone: [facility] Start: 10-04-2022 End: 10-04-[address] Joan Hughes Work Phone: [facility] Work Phone: Start: 10-04-2022 End: 10-04-[address] Joan Hughes Work Phone: [facility] Start: 09-20-2022 End: 09-20-[address] Joan Hughes Work Phone: [facility] Work Phone: Start: 09-20-2022 End: 09-20-[address] Joan Hughes Work Phone: [facility] Start: 09-20-[address] Joan lacy Work Phone: [facility] Start: 09-06-2022 End: 09-06-[address] Joan Hughes Work Phone: [facility] Start: 09-06-2022 End: 09-06-[address] Joan Hughes Work Phone: [facility] Work Phone: Start: 09-06-2022 End: 09-06-[address] Joan Hughes Work Phone: [facility] Start: 09-06-[address] Joan lacy Work Phone: [facility] Start: 08-23-2022 End: 08-23-[address] Joan Hughes Work Phone: [facility] Start: 08-23-2022 End: 08-23-[address] Joan Hughes Work Phone: [facility] Work Phone: Start: 08-23-2022 End: 08-23-[address] Joan Hughes Work Phone: [facility] Start: 08-23-[address] Joan lacy Work Phone: [facility] Start: 08-09-2022 End: 08-09-[address] Joan Hughes Work Phone: [facility] Work Phone: Start: 08-09-2022 End: 08-09-[address] Joan Hughes Work Phone: [facility] Start: 08-09-[address] Joan lacy Work Phone: [facility] Start: 07-26-2022 End: 07-26-[address] Joan Hughes Work Phone: [facility] Work Phone: Start: 07-26-2022 End: 07-26-[address] Joan Hughes Work Phone: [facility] Start: 07-26-[address] Joan lacy Work Phone: [facility] Start: 07-13-2022 End: 07-13-[address] Joan Hughes Work Phone: [facility] Work Phone: Start: 07-13-2022 End: 07-13-[address] Joan Hughes Work Phone: [facility] Start: 07-13-[address] Joan lacy Work Phone: [facility] Start: 07-12-2022 End: 07-12-[address] Joan Hughes Work Phone: [facility] Start: 07-12-2022 End: 07-12-[address] Joan Hughes Work Phone: [facility] Work Phone: Start: 07-12-2022 End: 07-12-[address] Joan Hughes Work Phone: [facility] Start: 07-04-2022 End: 07-04-[address] Joan Hughes Work Phone: [facility] Start: 06-28-2022 End: 06-28-[address] Joan Hughes Work Phone: [facility] Work Phone: Start: 06-28-2022 End: 06-28-[address] Joan Hughes Work Phone: [facility] Start: 06-27-2022 End: 06-27-[address] Joan Hughes Work Phone: [facility] Start: 06-23-2022 End: 06-23-2022 Telemedicine consultation with patient Willard Epperson MD Work Phone: [facility] Comment on above: Multiple sclerosis, primary progressive (HCC) (Primary Dx) Start: 06-14-2022 End: 06-14-[address] Joan Hughes Work Phone: [facility] Start: 06-14-[address] Joan lacy Work Phone: [facility] Start: 06-03-2022 End: 06-03-[address] Joan Hughes Work Phone: [facility] Start: 06-03-2022 End: 06-03-[address] Joan Hughes Work Phone: [facility] Work Phone: Start: 06-03-2022 End: 06-03-[address] Joan Hughes Work Phone: [facility] Start: 06-03-[address] Joan lacy Work Phone: [facility] Start: 06-01-2022 End: 06-01-[address] Joan Hughes Work Phone: [facility] Work Phone: Start: 06-01-2022 End: 06-01-[address] Joan Hughes Work Phone: [facility] Start: 06-01-[address] Joan lacy Work Phone: [facility] Start: 05-31-[address] Joan lacy Work Phone: [facility] Start: 05-28-2022 End: 05-28-[address] Joan Hughes Work Phone: [facility] Start: 05-28-[address] Joan lacy Work Phone: [facility] Start: 05-27-2022 End: 05-27-[address] Joan Hughes Work Phone: [facility] Work Phone: Start: 05-27-2022 End: 05-27-[address] Joan Hughes Work Phone: [facility] Start: 05-27-[address] Joan lacy Work Phone: [facility] Start: 05-17-2022 End: 05-17-[address] Joan Hughes Work Phone: [facility] Work Phone: Start: 05-17-2022 End: 05-17-[address] Joan Hughes Work Phone: [facility] Start: 05-17-[address] Joan lacy Work Phone: [facility] Start: 05-03-2022 End: 05-03-[address] Joan Hughes Work Phone: [facility] Work Phone: Start: 05-03-2022 End: 05-03-[address] Joan Hughes Work Phone: [facility] Start: 04-19-2022 End: 04-19-[address] Joan Hughes Work Phone: [facility] Start: 04-19-[address] Joan lacy Work Phone: [facility] Start: 04-09-2022 End: 04-09-[address] Joan Hughes Work Phone: [facility] Start: 04-05-2022 End: 04-05-[address] Joan Hughes Work Phone: [facility] Start: 04-05-2022 End: 04-05-[address] Joan Hughes Work Phone: [facility] Work Phone: Start: 04-05-2022 End: 04-05-[address] Joan Hughes Work Phone: [facility] Start: 04-05-[address] Joan lacy Work Phone: [facility] Start: 03-22-2022 End: 03-22-[address] oJan Hughes Work Phone: [facility] Work Phone: Start: 03-22-2022 End: 03-22-[address] Joan Hughes Work Phone: [facility] Start: 03-22-[address] Joan lacy Work Phone: [facility] Start: 03-08-2022 End: 03-08-[address] Joan Hughes Work Phone: [facility] Work Phone: Start: 03-08-2022 End: 03-08-[address] Joan Hughes Work Phone: [facility] Start: 02-22-2022 End: 02-22-[address] Joan Hughes Work Phone: [facility] Work Phone: Start: 02-22-2022 End: 02-22-[address] Joan Hughes Work Phone: [facility] Start: 02-22-[address] Joan lacy Work Phone: [facility] Start: 02-17-2022 End: 02-17-[address] Joan Hughes Work Phone: [facility] Start: 02-08-2022 End: 02-08-[address] Joan Hughes Work Phone: [facility] Work Phone: Start: 02-08-2022 End: 02-08-[address] Joan Hughes Work Phone: [facility] Start: 02-08-[address] Joan lacy Work Phone: [facility] Start: 01-25-2022 End: 01-25-[address] Joan Hughes Work Phone: [facility] Work Phone: Start: 01-25-2022 End: 01-25-[address] Joan Hughes Work Phone: [facility] Start: 01-25-[address] Joan lacy Work Phone: [facility] Start: 01-14-2022 ambulatory [facility] Start: 01-11-2022 End: 01-11-[address] Joan Hughes Work Phone: [facility] Work Phone: Start: 01-11-2022 End: 01-11-[address] Joan Hughes Work Phone: [facility] Start: 12-28-2021 End: 12-28-[address] Joan Hughes Work Phone: [facility] Start: 12-14-2021 End: 12-14-[address] Joan Hughes Work Phone: [facility] Start: 12-01-2021 ambulatory Joan villanueva MD Work Phone: Internal [facility] Start: 11-30-2021 End: 11-30-[address] Joan Hughes Work Phone: [facility] Start: 11-16-2021 End: 11-16-[address] Joan Hughes Work Phone: [facility] Start: 11-16-[address] Joan lacy Work Phone: [facility] Start: 11-13-2021 End: 11-13-[address] Joan Hughes Work Phone: [facility] Start: 11-12-2021 End: 11-12-[address] Joan Hughes Work Phone: [facility] Start: 11-02-2021 End: 11-02-[address] Joan Hughes Work Phone: [facility] Start: 11-02-[address] Joan lacy Work Phone: [facility] Start: 10-25-2021 End: 10-25-[address] Joan Hughes Work Phone: [facility] Start: 10-25-[address] Joan lacy Work Phone: [facility] Start: 10-18-2021 End: 10-18-[address] Joan Hughes Work Phone: [facility] Start: 10-18-[address] Joan lacy Work Phone: [facility] Start: 10-11-2021 End: 10-11-[address] Joan Hughes Work Phone: [facility] Start: 10-08-2021 End: 10-08-[address] Joan Hughes Work Phone: [facility] Start: 09-28-2021 Non-patient / Non-visit Dr. Michael Hughes Work Phone: [facility] Start: 09-27-2021 Non-patient / Non-visit Dr. Michael Hughes Work Phone: [facility] Start: 09-26-2021 Non-patient / Non-visit Dr. Michael perry [employer] Work Phone: [facility] Start: 09-25-2021 Non-patient / Non-visit Dr. Michael perry [employer] Work Phone: [facility] Start: 09-25-2021 Non-patient / Non-visit Dr. Michael perry [employer] Work Phone: [facility] Start: 09-24-2021 Non-patient / Non-visit Dr. Michael perry [employer] Work Phone: [facility] Start: 09-24-2021 Non-patient / Non-visit Dr. Michael perry [employer] Work Phone: [facility] Start: 09-23-2021 Non-patient / Non-visit Dr. Michael perry [employer] Work Phone: [facility] Start: 09-23-2021 Non-patient / Non-visit Dr. Michael perry [employer] Work Phone: [facility] Start: 09-22-2021 Non-patient / Non-visit Dr. Michael perry [employer] Work Phone: [facility] Start: 09-22-2021 Non-patient / Non-visit Dr. Michael perry [employer] Work Phone: [facility] Start: 09-21-2021 Coordination of care plan Mer Prado RN [facility] Start: 09-21-2021 Non-patient / Non-visit Dr. Michael perry [employer] Work Phone: [facility] Start: 09-21-2021 Non-patient / Non-visit Dr. Michael perry [employer] Work Phone: [facility] Start: 09-20-2021 Non-patient / Non-visit Dr. Michael Hughes Work Phone: [facility] Start: 09-20-2021 Non-patient / Non-visit Dr. Michael Hughes Work Phone: [facility] Start: 09-19-2021 Non-patient / Non-visit Dr. Michael [employer] Work Phone: [facility] Start: 09-19-2021 Non-patient / Non-visit Dr. Michael Hughes Work Phone: [facility] Start: 09-18-2021 Non-patient / Non-visit Dr. Michael Hughes Work Phone: [facility] Start: 09-17-2021 Non-patient / Non-visit Dr. Michael Hughes Work Phone: [facility] Start: 09-16-2021 Non-patient / Non-visit Dr. Michael perry [employer] Work Phone: [facility] Start: 09-16-2021 End: 09-28-2021 Evaluation and management of inpatient [facility] Start: 07-22-2021 ambulatory [facility] Start: 04-09-2021 End: 04-13-2021 ambulatory [facility] Start: 04-09-2021 End: 04-09-2021 Office outpatient visit 40 minutes Willard Epperson MD Work Phone: [facility] Comment on above: Multiple sclerosis, primary progressive (HCC) (Primary Dx); Vitamin D deficiency; Spasticity; Ataxia; Cognitive impairment Start: 04-09-2021 End: 04-09-2021 ambulatory Willard Epperson MD Work Phone: [facility] Comment on above: Multiple sclerosis, primary progressive (HCC) (Primary Dx); Multiple sclerosis (HCC) Start: 04-08-2021 Coordination of care plan Zahra Pratt RN [facility] Start: 01-08-2021 End: 01-08-2021 Chayito Cardoso MA [facility] Comment on above: Vitamin D deficiency Start: 10-29-2020 End: 10-29-2020 Orders Only Willard Epperson MD Work Phone: [facility] Comment on above: Multiple sclerosis, primary progressive (HCC) (Primary Dx) Start: 10-16-2020 End: 10-20-2020 ambulatory WILLARD EPPERSON [facility] Start: 10-16-2020 End: 10-16-2020 Office outpatient visit 25 minutes Willard Epperson MD Work Phone: [facility] Comment on above: Multiple sclerosis, primary progressive (HCC) (Primary Dx); Vitamin D deficiency; Paresis of lower extremity (HCC); History of gait disorder Start: 10-16-2020 End: 10-16-2020 ambulatory WILLARD EPPERSON [facility] Start: 10-16-2020 End: 10-16-2020 ambulatory Willard Epperson MD Work Phone: [facility] Comment on above: Multiple sclerosis, primary progressive (HCC) (Primary Dx) Start: 10-13-2020 End: 10-13-2020 Orders Only Willard Epperson MD Work Phone: [facility] Start: 10-12-2020 End: 10-12-2020 Coordination of care plan Fifi Guillermo RN [facility] Start: 10-07-2020 End: 10-07-2020 Coordination of care plan Fifi Guillermo RN [facility] Start: 08-06-2020 End: 08-06-2020 Orders Only Hermila Bowen Work Phone: [facility] Start: 04-21-2020 End: 04-21-2020 Documentation procedure Jeanne Hilario [facility], [facility] Start: 04-17-2020 End: 04-17-2020 ambulatory WILLARD EPPERSON [facility] Start: 04-17-2020 End: 04-17-2020 Office outpatient visit 25 minutes Willard Epperson Work Phone: [facility] Comment on above: Multiple sclerosis ( HCC) (Primary Dx); Fatigue, unspecified type; Orthostasis; Falls frequently Start: 04-17-2020 End: 04-17-2020 Patient encounter procedure Willard Epperson Work Phone: [facility] Comment on above: Multiple sclerosis, primary progressive (HCC) (Primary Dx) Start: 04-13-2020 End: 04-13-2020 Coordination of care plan [facility] Start: 10-29-2019 End: 10-29-2019 Admission to [facility] Start: 10-24-2019 End: 10-24-2019 Documentation procedure Jeanne Hilario [facility] Start: 10-18-2019 End: 10-18-2019 Phys/qhp telephone evaluation 11-20 min Willard Epperson Work Phone: [facility] Comment on above: Multiple sclerosis ( HCC) Start: 10-18-2019 End: 10-18-2019 Patient encounter procedure Willard Epperson Work Phone: [facility] Comment on above: Multiple sclerosis, primary progressive (HCC) (Primary Dx) Start: 10-18-2019 End: 10-18-2019 Subsequent hospital visit by physician Willard Epperson Work Phone: [facility] Comment on above: Multiple sclerosis ( HCC) Start: 10-09-2019 End: 10-09-2019 Coordination of care plan [facility] Start: 04-18-2019 End: 04-18-2019 Documentation procedure Jeanne Hilario [facility] Start: 04-12-2019 End: 04-12-2019 Office outpatient visit 25 minutes Willard Epperson Work Phone: [facility] Comment on above: Multiple sclerosis ( HCC) (Primary Dx) Start: 04-12-2019 End: 04-12-2019 Patient encounter procedure Willard Epperson Work Phone: [facility] Comment on above: Multiple sclerosis, primary progressive (HCC) (Primary Dx); Multiple sclerosis (HCC) Start: 04-11-2019 End: 04-11-2019 Coordination of care plan Melvadivya Zuleta [facility] Start: 10-12-2018 End: 10-12-2018 Patient encounter procedure Willard Epperson Work Phone: [facility] Comment on above: Multiple sclerosis, primary progressive (HCC) (Primary Dx) Start: 09-28-2018 End: 09-28-2018 Office outpatient visit 25 minutes Willard Epperson Work Phone: [facility] Comment on above: Multiple sclerosis ( HCC) (Primary Dx); Therapeutic drug monitoring Start: 09-28-2018 End: 09-28-2018 Patient encounter procedure Willard Epperson Work Phone: [facility] Comment on above: Multiple sclerosis ( HCC) Start: 01-23-2018 Patient encounter Jeanne Hilario [facility] Start: 01-19-2018 End: 01-19-2018 Office outpatient visit 40 minutes Aysha Epperson Work Phone: [facility] Start: 10-11-2017 End: 10-11-2017 Ambulatory Murtaza Fish Work Phone: [facility] Start: 08-25-2017 Office/outpatient vi sit, est, level 4 Willard Epperson Work Phone: [facility] Start: 08-11-2017 Ambulatory Jeanne Hilario [facility] Start: 05-25-2017 Ambulatory Jeanne Hilario [facility] Start: 05-25-2017 Office/outpatient vi sit, est, level 4 Willard Epperson Work Phone: [facility] Start: 05-04-2017 Ambulatory Murtaza Leigh Doherty toni Work Phone: [facility] Start: 04-13-2017 Ambulatory Murtaza ReymundoMirian muñoz Work Phone: [facility] Start: 02-13-2017 End: 02-13-2017 Documentation procedure Jeanne Hilario [facility] Start: 02-13-2017 Office/outpatient vi sit, est, level 4 Willard Epperson Work Phone: [facility] Start: 01-25-2017 [facility] Date Procedure Procedure Detail Performing Clinician Start: 11-15-2024 Urnls dip stick/tabl et reagent auto microscopy Dr. Joan Hughes MD Work Phone: Start: 10-11-2024 Gram stain microscopy Norm Hughes MD Work Phone: Start: 10-11-2024 End: 10-11-[address] Joan villanueva MD Work Phone: Start: 08-19-2024 Gram stain microscopy oNrm Hughes MD Work Phone: Start: 08-19-2024 End: 08-19-[address] Joan villanueva MD Work Phone: Start: 08-05-2024 Urnls [...] Hughes Work Phone: Start: 09-24-[address] Jaon lacy Work Phone: Start: 09-18-2021 Investigation of [...] Phone: Start: 10-01-2018 Colonoscopy Amrit ramirez Start: 04-26-2019 Creatinine [Mass/vol ume] in Blood Willard Epperson Work Phone: Bacteria identified in Blood by Culture Dr. Joan Hughes Work Phone: Investigation of transfusion reaction Dr. Joan Hughes Work Phone: Legionella pneumophi la antigen assay Dr. Jaon Hughes Work Phone: Respiratory microbia l culture Dr. Joan Hughes Work Phone: Streptococcus pneumo niae Antigen (M Dr. Joan Hughes Work Phone: Urine culture Dr. Joan billingsley Work Phone: Urine culture Dr. Joan billingsley Work Phone: Plan of Treatment Date Care Activity Detail Author Start: 10-01-2028 Screening for malignant neoplasm of colon [facility] Start: 11-15-2024 Bacteria identified in Urine by Culture Urine Culture [facility] Start: 11-15-2024 [facility] Start: 10-02-2023 Colonoscopy COLONOSCOPY [facility] Start: 10-02-2023 COLORECTAL CANCER SCREENING COLORECTAL CANCER SCREENING [facility] Start: 02-08-2022 Tetanus vaccination [facility] Start: 02-08-2022 Urine microalbumin profile DTAP,TDAP,TD (2 - Td or Tdap) [facility] Start: 02-03-2022 Influenza vaccination [facility] Start: 09-28-2021 Patient discharge [facility] Work Phone: Start: 09-28-2021 End: 09-28-2021 ambulatory [facility] Start: 09-28-2021 End: 09-28-2021 Patient encounter procedure [facility] Start: 09-27-2021 End: 09-27-2021 Patient encounter procedure [facility] Start: 09-21-2021 Following clinical pathway protocol [facility] Work Phone: Start: 09-21-2021 [facility] Work Phone: Start: 09-20-2021 Care planning and problem solving actions [facility] Work Phone: Start: 09-18-2021 Catheterization of vein [facility] Work Phone: Start: 09-18-2021 Consultation [facility] Work Phone: Start: 09-18-2021 Incentive spirometry [facility] Work Phone: Start: 09-18-2021 Insertion of catheter into peripheral vein [facility] Work Phone: Start: 09-18-2021 Measuring intake and output [facility] Work Phone: Start: 09-18-2021 Oxygen therapy [facility] Work Phone: Start: 09-18-2021 Physiotherapy of chest [facility] Work Phone: Start: 09-18-2021 Providing care according to standard [facility] Work Phone: Start: 09-18-2021 Vital signs measurements [facility] Work Phone: Start: 09-18-2021 [facility] Work Phone: Start: 09-18-2021 Care planning and problem solving actions [facility] Work Phone: Start: 09-18-2021 Continuous positive airway pressure ventilation treatment [facility] Work Phone: Start: 09-17-2021 Speech therapy assessment [facility] Work Phone: Start: 09-17-2021 [facility] Work Phone: Start: 09-16-2021 Ambulation without limitation [facility] Work Phone: Start: 09-16-2021 Assessment of risk of venous thromboembolism [facility] Work Phone: Start: 09-16-2021 Insertion of catheter into peripheral vein [facility] Work Phone: Start: 09-16-2021 Providing care according to standard [facility] Work Phone: Start: 09-16-2021 Referral to occupational therapist [facility] Work Phone: Start: 09-16-2021 Referral to service [facility] Work Phone: Start: 09-16-2021 [facility] Work Phone: Start: 09-16-2021 Following clinical pathway protocol [facility] Work Phone: Start: 09-16-2021 Admission procedure [facility] Work Phone: Start: 09-16-2021 Bacteria identified in Blood by Culture Blood Culture [facility] Work Phone: Start: 09-16-2021 Bacteria identified in Urine by Culture Urine Culture [facility] Work Phone: Start: 04-23-2021 COVID-19 Vaccine (3 - Booster for Pfizer series) COVID-19 Vaccine (3 - Booster for Pfizer series) [facility] Start: 04-16-2021 End: 04-16-2021 ambulatory 04/16/2021 Infusion/Injection Infusion Therapy [facility] Start: 04-09-2021 End: 04-09-2021 ambulatory 04/09/2021 Infusion/Injection Infusion Therapy [facility] Start: 04-09-2021 End: 04-09-2021 Patient encounter procedure 04/09/2021 Office Visit Neurology Willard Epperson MD [address] [place] [address] [phone] [facility] Start: 03-23-2021 COVID-19 Vaccine (3 - Booster for Pfizer series) COVID-19 Vaccine (3 - Booster for Pfizer series) [facility] Start: 03-10-2021 Screening for malignant neoplasm of breast Mammogram [facility] Start: 03-10-2021 Screening mammography Mammogram [facility] Start: 03-05-2021 End: 10-19-2021 MR Brain With And Without Contrast MR Brain With And Without Contrast Imaging Routine Multiple sclerosis, primary progressive (HCC) Expected: 03/05/2021, Expires: 10/19/2021 [facility] Comment on above: Expected: 03/05/2021, Expires: Start: 03-05-2021 End: 10-19-2021 MRI of cervical spine MR Cervical Spine With And Without Contrast Imaging Routine Multiple sclerosis, primary progressive (HCC) Expected: 03/05/2021, Expires: 10/19/2021 [facility] Comment on above: Expected: 03/05/2021, Expires: 2 Start: 03-05-2021 End: 10-19-2021 MRI of thoracic spine MR Thoracic Spine With And Without Contrast Imaging Routine Multiple sclerosis, primary progressive (HCC) Expected: 03/05/2021, Expires: 10/19/2021 [facility] Comment on above: Expected: 03/05/2021, Expires: 2 Start: 02-03-2021 Influenza vaccination [facility] Start: 12-16-2020 COVID-19 Vaccine (3 - Booster for Pfizer series) COVID-19 Vaccine (3 - Booster for Pfizer series) [facility] Start: 10-19-2020 COVID-19 Vaccine (2 - Pfizer 2-dose series) COVID-19 Vaccine (2 - Pfizer 2-dose series) [facility] Start: 10-16-2020 End: 10-16-2020 Infusion/Injection [facility] Start: 04-17-2020 End: 04-17-2020 Office Visit 04/17/2020 Office Visit Neurology Willard Epperson MD [address] [address] [phone] [facility] Start: 04-17-2020 End: 04-17-2020 Infusion/Injection [facility] Start: 02-04-2020 Influenza vaccination given [facility] Start: 01-22-2020 Mammography MAMMOGRAM [facility] Start: 01-15-2020 Adult depression screening assessment DEPRESSION SCREENING [facility] Start: 10-18-2019 End: 10-18-2019 Office Visit 10/18/2019 Office Visit Neurology Willard Epperson MD [address] [facility] [address] [place] [address] [phone] [facility] Start: 10-18-2019 End: 10-18-2019 Infusion/Injection [facility] Start: 10-18-2019 End: 10-18-2019 Appointment 10/18/2019 Appointment Radiology Willard Epperson MD [address] [address] [phone] [facility] Start: 04-12-2019 End: 04-12-2019 Infusion/Injection 04/12/2019 Infusion/Injection Infusion Therapy [facility] Start: 03-11-2019 End: 03-11-2019 Office Visit 03/11/2019 Office Visit Neurology Willard Epperson MD [address] [facility] [address] [address] [phone] [facility] Start: 02-04-2019 DIABETES SCREEN DIABETES SCREEN [facility] Start: 02-03-2019 Influenza vaccination given [facility] Start: 10-12-2018 End: 10-12-2018 Infusion/Injection 10/12/2018 Infusion/Injection Infusion Therapy Willard Epperson MD [address] [facility] [address] [address] [phone] [facility] Start: 04-13-2018 End: 04-13-2018 Ambulatory 04/13/2018 Office Visit Neurology Willard Epperson MD [address] [facility] [address] [address] [phone] [facility] Start: 04-13-2018 End: 04-13-2018 Ambulatory 04/13/2018 Infusion/Injection Infusion Therapy [facility] Start: 02-03-2018 Influenza vaccination [facility] Start: 02-03-2018 Influenza vaccination given SEQUENTIAL INFLUENZA VACCINE (#1) [facility] Start: 01-19-2018 End: 01-19-2018 Ambulatory 01/19/2018 Office Visit Neurology Willard Epperson MD [address] [facility] [address] [address] [phone] [facility] Start: 10-11-2017 Ambulatory 10/11/2017 Infusion/Injection Infusion Therapy [facility] Start: 08-25-2017 Ambulatory 08/25/2017 Office Visit Neurology Willard Epperson MD [address] [address] [phone] [facility] Start: 08-17-2017 Ambulatory 08/17/2017 Appointment Radiology Willard Epperson MD [address] [facility] [address] [address] [phone] [facility] Start: 05-25-2017 Ambulatory 05/25/2017 Office Visit Neurology Willard Epperson MD [address] [facility] [address] [address] [phone] [facility] Start: 05-04-2017 Ambulatory 05/04/2017 Infusion/Injection Infusion Therapy [facility] Start: 02-13-2017 Ambulatory 02/13/2017 Office Visit Neurology Willard Epperson MD [address] [facility] [address] [address] [phone] [facility] Start: 02-03-2017 Influenza vaccination SEQUENTIAL INFLUENZA VACCINE (#1) [facility] Work Phone: Start: 02-03-2017 SEQUENTIAL INFLUENZA VACCINE (#1) SEQUENTIAL INFLUENZA VACCINE (#1) [facility] Work Phone: Start: 03-31-2016 HPV TESTING HPV TESTING [facility] Start: 03-31-2016 PAP TESTING PAP TESTING [facility] Start: 02-09-2016 LIPID SCREEN LIPID SCREEN [facility] Start: 02-21-2008 Administration of herpes zoster vaccine Zoster Vaccines (1 of 2) [facility] Start: 02-21-2008 Screening for malignant neoplasm of colon [facility] Start: 02-21-2008 SHINGRIX VACCINE (1 of 2) SHINGRIX VACCINE (1 of 2) [facility] Start: 2003 COLOGUARD (FIT-DNA) COLOGUARD (FIT-DNA) [facility] Start: [address] COLONOGRAPHY [facility] Start: 2003 FECAL OCCULT BLOOD FECAL OCCULT BLOOD [facility] Start: 2003 SIGMOIDOSCOPY SIGMOIDOSCOPY [facility] Start: 02-21-1976 HEPATITIS C SCREENING HEPATITIS C SCREENING [facility] Start: 02-21-1976 HIV SCREENING HIV SCREENING [facility] Start: 1974 COVID-19 Vaccine (1 of 2) COVID-19 Vaccine (1 of 2) [facility] Start: 1974 COVID-19 Vaccine (1) COVID-19 Vaccine (1) [facility] Start: 1970 Adolescent depression screening assessment Depression Screening (PHQ9) [facility] Start: 1970 Depression screening using PHQ-9 (Patient Health Questionnaire 9) score [facility] Start: 1961 History and physical examination, annual for health maintenance Wellness Visit [facility] Start: 1958 Protein mass conc Mammogram [facility] Start: 1958 Screening for malignant neoplasm of colon [facility] Start: 1958 Screening mammography Mammogram [facility] Start: 1958 Colonoscopy COLONOSCOPY [facility] Work Phone: Start: 1958 Cytopathology procedure, preparation of smear, genital source PAP SMEAR [facility] Work Phone: Start: 1960 End: 1958 Screening colonoscopy COLONOSCOPY [facility] Work Phone: Start: 1960 End: 1958 Screening for malignant neoplasm of cervix PAP SMEAR [facility] Start: 1958 TETANUS EVERY 10 YR TETANUS EVERY 10 YR [facility] Work Phone: Start: 1960 End: 1958 Tetanus vaccination TETANUS EVERY 10 YR [facility] Work Phone: End: 04-17-2021 Cobalamin (Vitamin B12) [Mass/Vol] Vitamin B12 Lab Routine Fatigue, unspecified type 1 Occurrences starting 04/17/2020 until 04/17/2021 [facility] Comment on above: 1 Occurrences starting 04/17/2020 until 04/17/2021 End: 04-17-2021 Complete blood count with white cell differential, manual CBC and Differential Lab Routine Multiple sclerosis, primary progressive (HCC) 1 Occurrences starting 04/17/2020 until 04/17/2021 [facility] Comment on above: 1 Occurrences starting 04/17/2020 until 04/17/2021 End: 10-02-2019 Complete blood count with white cell differential, manual CBC and Differential Routine Therapeutic drug monitoring 1 Occurrences starting 10/01/2018 until 10/02/2019 [facility] Comment on above: 1 Occurrences starting 10/01/2018 until 10/02/2019 End: 10-16-2021 Complete blood count with white cell differential, manual CBC and Differential Lab Routine Multiple sclerosis, primary progressive (HCC) 1 Occurrences starting 10/16/2020 until 10/16/2021 [facility] Comment on above: 1 Occurrences starting 10/16/2020 until 10/16/2021 End: 04-17-2021 Comprehensive metabolic 2000 panel Comprehensive Metabolic Panel Lab Routine Multiple sclerosis, primary progressive (HCC) 1 Occurrences starting 04/17/2020 until 04/17/2021 [facility] Comment on above: 1 Occurrences starting 04/17/2020 until 04/17/2021 End: 10-02-2019 Comprehensive metabolic 2000 panel Comprehensive Metabolic Panel Routine Therapeutic drug monitoring 1 Occurrences starting 10/01/2018 until 10/02/2019 [facility] Comment on above: 1 Occurrences starting 10/01/2018 until 10/02/2019 End: 05-25-2018 Comprehensive metabolic panel [AGGREGATE] Comprehensive Metabolic Panel Routine Multiple sclerosis (HCC) 1 Occurrences starting 05/25/2017 until 05/25/2018 [facility] Work Phone: Comprehensive metabo lic panel [AGGREGATE] Comprehensive Metabolic Panel Routine Multiple sclerosis (HCC) 05/25/2017 10:22 AM EST [facility] Work Phone: End: 10-16-2021 Hepatic function 2000 panel - Serum or Plasma Hepatic Function Panel Lab Routine Multiple sclerosis, primary progressive (HCC) 1 Occurrences starting 10/16/2020 until 10/16/2021 [facility] Comment on above: 1 Occurrences starting 10/16/2020 until 10/16/2021 End: 04-17-2021 Immunoglobulin measurement IgG, IgA, IgM Immunoglobulins Lab Routine Multiple sclerosis, primary progressive (HCC) 1 Occurrences starting 04/17/2020 until 04/17/2021 [facility] Comment on above: 1 Occurrences starting 04/17/2020 until 04/17/2021 End: 10-16-2021 Immunoglobulin measurement IgG, IgA, IgM Immunoglobulins Lab Routine Multiple sclerosis, primary progressive (HCC) 1 Occurrences starting 10/16/2020 until 10/16/2021 [facility] Comment on above: 1 Occurrences starting 10/16/2020 until 10/16/2021 End: 09-28-2018 MR Brain With And Without Contrast MR Brain With And Without Contrast Routine Multiple sclerosis (HCC) Once for 1 Occurrences starting 09/28/2018 until 09/28/2018 [facility] Comment on above: Once for 1 Occurrences starting 09/29/19 19 until 09/28/2018 MR Brain With And Without Contrast MR Brain With And Without Contrast Routine Multiple sclerosis (HCC) 09/28/2018 1:06 PM EDT [facility] End: 08-25-2018 OCT, Optic Nerve - OU - Both Eyes OCT, Optic Nerve - OU - Both Eyes Routine Multiple sclerosis (HCC) 1 Occurrences starting 08/25/2017 until 08/25/2018 [facility] Patient referral [facility] Work Phone: End: 12-31-2022 Screening mammography bi 2-view breast inc cad [facility] SCREENING Radiology Routine Encounter for screening mammogram for breast cancer 1 Occurrences starting 12/01/2021 until 12/31/2022 [facility] Work Phone: Comment on above: 1 Occurrences starting 12/01/2021 until 12/31/2022 End: 04-17-2021 TSH Qn TSH with Reflex Free T4 Lab Routine Fatigue, unspecified type 1 Occurrences starting 04/17/2020 until 04/17/2021 [facility] Comment on above: 1 Occurrences starting 04/17/2020 until 04/17/2021 Urine culture [facility] End: 04-17-2021 Vitamin D, 25-hydroxy measurement Vitamin D, Total, 25-OH Lab Routine Multiple sclerosis, primary progressive (HCC) 1 Occurrences starting 04/17/2020 until 04/17/2021 [facility] Comment on above: 1 Occurrences starting 04/17/2020 until 04/17/2021 End: 10-01-2019 Vitamin D, 25-hydroxy measurement Vitamin D, Total, 25-OH Routine Therapeutic drug monitoring 1 Occurrences starting 10/01/2018 until 10/01/2019 [facility] Comment on above: 1 Occurrences starting 10/01/2018 until 10/01/2019 End: 05-25-2018 Vitamin D, Total, 25-OH Vitamin D, Total, 25-OH Routine Multiple sclerosis (HCC) 1 Occurrences starting 05/25/2017 until 05/25/2018 [facility] Work Phone: Vitamin D, Total, 25-OH Vitamin D, Total, 25-OH Routine Multiple sclerosis (HCC) 05/25/2017 10:22 AM EST [facility] Work Phone: Immunizations Immunization Date Immunization Notes Care Provider Fa cili 10-21-2020 COVID-19 vaccine, ag e 12+ yr (PFIZER-BIONTECH - PURPLE TOP) Joan Hughes MD Work Phone: [facility] Work Phone: 09-28-2020 COVID-19 vaccine, ag e 12+ yr (PFIZER-BIONTECH - PURPLE TOP) Joan Hughes MD Work Phone: [facility] Work Phone: 02-09-2017 AFLURIA QUAD 2016- 18, PF, syringe; Translations: [Afluria Quad (Pf) 60 McG/0.5 Ml Intramuscular Syringe] Jeanne Hilario [facility] Work Phone: 02-08-2016 influenza, seasonal, injectable Joan Hughes MD Work Phone: [facility] 02-22-2013 influenza virus vaccine, unspecified formulation Joan Hughes MD Work Phone: [facility] 03-03-2012 influenza virus vaccine, unspecified formulation Joan Hughes MD Work Phone: [facility] 02-09-2012 tetanus toxoid, redu deniz diphtheria toxoid, and acellular pertussis vaccine, adsorbed Joan Hughes MD Work Phone: [facility] 04-07-2010 pneumococcal polysaccharide vaccine, 23 valent Joan Hughes MD Work Phone: [facility] 03-25-2008 influenza virus vaccine, unspecified formulation Joan Hughes MD Work Phone: [facility] 04-03-2007 influenza virus vaccine, unspecified formulation Joan Hughes MD Work Phone: [facility] Work Phone: 04-17-2006 influenza virus vaccine, unspecified formulation Joan Hughes MD Work Phone: [facility] 05-17-2005 influenza virus vaccine, unspecified formulation Joan Hughes MD Work Phone: [facility] Work Phone: Payers Date Payer Category Payer Self-pay [id number] 2023 Unknown [id number] 2013 Unknown [id number] 2. [id number] 2013 Unknown [id number] 2. 16.840.1.440959.3.249.13 2013 Unknown [id number] 1.2.840.325179.1.13.385.2.7.3.546129.315 2013 Unknown [id number]. 1.13.385.2.7.3.403603.315 1958 Unknown [id number] 2.16. 840.1.253432.3.579.2.900 1958 Unknown [id number] 2.16. 840.1.702501.3.579.2.900 1958 Unknown [id number] 2.16. 840.1.952643.3.579.2.900 1958 Unknown [id number] 2.16. 840.1.844048.3.579.2.900 1958 Unknown [id number] 2.16. 840.1.480196.3.579.2.900 1958 Unknown [id number] 2.16. 840.1.330701.3.579.2.900 1958 Unknown [id number] 2.16. 840.1.495919.3.579.2.900 1958 Unknown [id number] 2.16. 840.1.177036.3.579.2.900 1958 Unknown [id number] 2.16. 840.1.250134.3.579.2.900 1958 Unknown [id number] 2.16. 840.1.585129.3.579.2.903 1958 Unknown [id number] 2.16. 840.1.742176.3.579.2.903 Medicare MEDICARE PART A B [id number] Unknown [id number] 2.16.8 40.1.851240.3.579.2.462 Unknown [id number] 2.16.8 40.1.018825.3.579.2.462 Unknown [id number] 2.16.8 40.1.057535.3.579.2.462 Unknown [id number] 2.16.8 40.1.160920.3.579.2.462 Unknown [id number] 2.16.8 40.1.683680.3.579.2.462 Unknown [id number] 2.16.8 40.1.028702.3.579.2.462 Unknown [id number] 2.16.8 40.1.440457.3.579.2.462 Unknown [id number] 2.16.8 40.1.215002.3.579.2.462 Unknown [id number] 2.16.8 40.1.146201.3.579.2.462 Unknown [id number] 2.16.8 40.1.328701.3.579.2.462 Unknown [id number] 2.16.8 40.1.287335.3.579.2.462 Unknown [id number] 2.16.8 40.1.221028.3.579.2.462 Unknown [id number] 2.16.8 40.1.385725.3.579.2.462 Unknown [id number] 2.16.8 40.1.072679.3.579.2.462 Unknown [id number] 2.16.8 40.1.924397.3.579.2.462 Unknown [id number] 2.16.8 40.1.322519.3.579.2.462 Unknown [id number] 2.16.8 40.1.520204.3.579.2.462 Unknown [id number] 2.16.8 40.1.109873.3.579.2.462 Unknown [id number] 2.16.8 40.1.202404.3.579.2.462 Unknown [id number] 2.16.8 40.1.935508.3.579.2.462 Unknown [id number] 2.16.8 40.1.210750.3.579.2.462 Unknown [id number] 2.16.8 40.1.465665.3.579.2.462 Unknown [id number] 2.16.8 40.1.333284.3.579.2.462 Unknown [id number] 2.16.8 40.1.731149.3.579.2.462 Unknown [id number] 2.16.8 40.1.441605.3.579.2.462 Unknown [id number] 2.16.8 40.1.717894.3.579.2.462 Unknown [id number] 2.16.8 40.1.290212.3.579.2.462 Unknown [id number] 2.16.8 40.1.658191.3.579.2.462 Unknown [id number] 2.16.8 40.1.024027.3.579.2.462 Unknown [id number] 2.16.8 40.1.453652.3.579.2.462 Unknown [id number] 2.16.8 40.1.486701.3.579.2.462 Unknown [id number] 2.16.8 40.1.932393.3.579.2.462 Unknown [id number] 2.16.8 40.1.848313.3.579.2.462 Unknown [id number] 2.16.8 40.1.635561.3.579.2.462 Unknown [id number] 2.16.8 40.1.011961.3.579.2.462 Unknown [id number] 2.16.8 40.1.432281.3.579.2.462 Unknown [id number] 2.16.8 40.1.905557.3.579.2.462 Social History Date Type Detail Facility Start: 10-11-2017 End: 07-05-2022 Tobacco smoking status NHIS Never smoker [facility] Work Phone: Start: 1960 Sex Assigned At Not on file [facility] Work Phone: Start: 04-16-2019 End: 07-14-2021 Alcohol intake Current non-drinker of alcohol (finding) [facility] Exposure to SARS-CoV -2 (event) Not sure [facility] Start: 04-13-2017 End: 10-18-2019 Tobacco use and exposure Never used [facility] Start: 09-16-2021 End: 07-05-2022 Tobacco smoking status NHIS Unknown if ever smoked [facility] Start: 01-25-2020 Alone [facility] Start: 1960 Sex Assigned At Female W [facility] Start: 09-05-2024 End: 09-06-2024 Sex Female (finding) [facility] Goals Date Patient Goal Desired Activity /State Functional Status Date Assessment Result Facility 09-28-2021 Functional status Patient Activity Chair [facility] Work Phone: 09-28-2021 Functional status Activity Abili ty With Assist of 2 [facility] Work Phone: 09-28-2021 Functional status Rolling Walker [facility] Work Phone: Mental Status Date Assessment Result Facility 09-28-2021 Cognitive function Voice/Name [facility] Work Phone: 09-16-2021 Cognitive function Level Of Cons ciousness Awake;Alert;Appropriate;Follow s Commands [facility] Work Phone: Clinical Notes 10-16-2020 to 11-09-2022 Willard Epperson MD - 06/23/2022 11:31 AM ESTPatient InstructionsPatient InstructionsDatre Epperson MD - 04/09/2021 8:00 AM EDTSmith, Willard Bliss MD - 10/29/2020 10:03 AM EDT Note Date & Type Note Facility 11-09-2022 Note Patient Outreach (IN TMMN) BRITNEY PERAZA ([id number]) 1960 F TXT Date Time Provider Department [...] for screening mammogram for breast cancer [Z12.31] Order(s):[facility] SCREENING [[id number]] Order #: [id number] FUTURE Prescriptions as of 11/14/2022 - atenolol [...] sclerosis) (HCC) [G35] 01/14/2019 Encounter Status:Closed by CHRIS CANDELARIO on 11/14/22 [facility] 06-23-2022 History of Present illness Narrative Left voicemail message with patient. Was not sure if she wanted to continue to follow-up in clinic. Would be happy to see her back, even if she is no longer on disease modifying therapy to work on symptomatic management. 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 documented in this encounter [facility] 12-01-2021 Note Patient Outreach (IN TMMN) NANCY PERAZAARA Con ([id number]) 1960 F TXT Date Time Provider Department [...] for screening mammogram for breast cancer [Z12.31] Order(s):[facility] SCREEN[facility] [[id number]] Order #: [id number] FUTURE Prescriptions as of 12/06/2021 - atenolol [...] sclerosis) (HCC) [G35] 01/14/2019 Encounter Status:Closed by JOY CANDELARIOUSER on 12/06/21 [facility] 04-09-2021 Instructions Zahra Pratt RN - [...] the medicines you take, including prescription and ebqv-bls-tjcbsab medicines. vitamins, and herbal supplements. How will [...] may report side effects to FDA at 0-449-XAQ-3363. General information about the safe and effective [...] sodium acetate trihydrate, trehalose dihydrate. Manufactured by: [employer] A Member of [employer], [address] [place] [address], [place] [address] [place] License No. [id number] For more information, go to www.[email or web address] or call . This Medication Guide has been approved by the U.S. Food and Drug Administration documented in this encounter [facility] 04-09-2021 Instructions Willard Epperson MD - 04/09/2021 8:16 AM EDT Central Schedulin661- [phone] documented in this encounter [facility] 04-09-2021 History of Present illness Narrative Images from the original note were not included. 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 I recommend continuing Vitamin D3 86534 IU once every other daily. Goal levels [...] me in 6 months. Willard Epperson MD [facility] Neuroimmunology/ Neuroinfectious Disease ([place], and [place] outpatient clinics) General Neurology ([place]) ([place]) [place] Address: [address] [place] [address], [address] [place], [place] [address] [place] [address] [address] [facility], [address] [place] [address], [place] [address] Chief Complaint: Neuro-immunology clinic follow up INTERIM HISTORY Britney Peraza is here for follow up. Last was seen 10/23. Accompanied by her sister today. She has her infusion scheduled later this morning. No new symptoms to report, though her sister feels she minimizes worsening gait impairment. We had placed orders for [facility] in [facility]. They had been providing her with [...] Swelling Naproxen Sodium Hives, Itching and Swelling Asscmgynoxay-Uyk-Vbzfcbtb tachycardia tachycardia Penicillins Hives Sulfa (Sulfonamide Antibiotics) Hives Tetracycline Hives Current Outpatient Medications Medication Sig Dispense Refill acetaminophen (TYLENOL) 500 MG tablet Take 500 mg by mouth every 6 (six) hours as needed for pain. AFLURIA QUAD [id number], PF, syringe ADMINISTERED AT DDM 0 atenolol [...] documentation: 40 minutes. documented in this encounter [facility] 01-08-2021 Miscellaneous Notes Changed pharmacies documented in this encounter [facility] 10-29-2020 History of Present illness Narrative Are we able to fax this order for home health to [facility] in [place]? Contact is: Toll Free [phone] Also, can we reschedule her Apr visit [...] her regarding this? documented in this encounter [facility] 10-16-2020 History of Present illness Narrative Images from the original note were not included. 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 Goal levels of Vitamin [...] with me April 2021. Willard Epperson MD [facility] Neuroimmunology/ Neuroinfectious Disease ([place], [place], and [place] [facility] outpatient clinics) General Neurology ([place]) ([place]) [place] Address: [address] [place] [address], [address] [place] [address] [place] Address [address] [facility], [address] [place] [address] [facility] [address] [place] [address], [place] [id number] Chief Complaint: Neuro-immunology clinic follow up INTERIM [...] Swelling Naproxen Sodium Hives, Itching and Swelling Aujbcvmpwdvh-Qnm-Mykdjeyr tachycardia tachycardia Penicillins Hives Sulfa (Sulfonamide Antibiotics) Hives Tetracycline Hives Current Outpatient Medications Medication Sig Dispense Refill acetaminophen (TYLENOL) 500 MG tablet Take 500 mg by mouth every 6 (six) hours as needed for pain. AFLURIA QUAD [id number], PF, syringe ADMINISTERED AT DDM 0 atenolol [...] air cells are clear. Nasopharynx is normal. Kitchen Worker spaces are normal. Orbital contents are normal. [...] or enhancing lesions. 3. Stable brain atrophy. Lumics/Exmovere Workstation ID: [id number] Total time spent, including over 50% or more spent face to face with the patient discussing the risk and benefits of any medications, reviewing available data and counseling patient on treatment plan was 30 minutes. The aforementioned impression & plan were discussed with the patient. documented in this encounter [facility] 10-16-2020 Instructions LiangLata RN - 10/16/2020 12:37 [...] Pt voiced understanding. documented in this encounter [facility] 10-16-2020 Instructions Lata Liang RN - 10/16/2020 [...] Pt voiced understanding. documented in this encounter [facility] 10-16-2020 History of Present illness Narrative Labs obtained with insertion of PIV, which will be used for the infusion today. Specimens labeled per policy and taken to the lab [facility] for processing. documented in this encounter [facility] 10-16-2020 History of Present illness Narrative Labs obtained with insertion of PIV, which will be used for the infusion today. Specimens labeled per policy and taken to the lab in the [facility] for processing. 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 documented in this encounter [facility] note* Diagnosis Multiple sclerosis, primary progressive (HCC)- Primary documented in this encounter [facility] note* Diagnosis Vitamin D deficiency documented in this encounter [facility] note* Diagnosis Multiple sclerosis, primary progressive (HCC)- Primary Multiple sclerosis (HCC) Multiple sclerosis documented in this encounter [facility] note* Diagnosis Multiple sclerosis, primary progressive (HCC)- Primary Vitamin D deficiency Spasticity Abnormal involuntary movements Ataxia Lack of coordination Cognitive impairment Unspecified persistent mental disorders due to conditions classified elsewhere documented in this encounter [facility] note* Diagnosis Onset Date Resolution Status Acute cystitis acute Complicated urinary tract infection acute Infectious encephalopathy ac isha Severe sepsis acute [facility] Work Phone: Evaluation note* Diagnosis Onset Date Resolution Status Acute respiratory failure with hypoxia acute Complicated urinary tract infection acute COVID-19 acute Debility acute Lactic acidosis acute Sepsis acute [facility] Work Phone: Evaluation note* Diagnosis Onset Date Resolution Status Debility acute Acute respiratory failure with hypoxia resolved Complicated urinary tract infection resolved COVID-19 resolved Lactic acidosis resolved Sepsis resolved [facility] Work Phone: Evaluation note* Diagnosis Encounter for screening mammogram for breast cancer documented in this encounter [facility] noteNo assessment information availableWThe [facility] Work Phone: [facility] note* Diagnosis Multiple sclerosis, primary progressive (HCC)- Primary [facility] Work Phone: [facility] Work Phone[facility] Work Phone: [facility] Work Phone: Reason for referral (narrative)* Diagnostic Procedure Only (Routine) - Pending Review Specialty Diagnoses / Procedures Referred By Gaston t Referred To Contact [facility] Diagnoses Encounter for screening mammogram for breast cancer Procedures HUBERT SCREENING SCREENING MAMMOGRAPHY BI 2-VIEW BREAST INC CAD Joan Hughes MD [address] [place] [address] [facility] [address] [place] [address] Referral ID Status Reason Start Date Expiration Date Visits Requested Visits Authorized [id number] Pending Review Auto-Generat ed Referral 12/01/2021 12/31/2022 [facility]No reason for referral information availableWThe [facility] Work Phone: Instructions * Patient Instructions [...] would require purchasing a compounded version from [facility]. One source to purchase this is https://Covacsis.Nutrisystem/product/7-jauqxu-ibsn-tdgeokm-qnknkz-cdv-90-count/ Physical Therapy: 1. Recommend return to PT [...] copy. documented in this encounter* Patient Instructions* Denies Carter RN - 10/18/2019 8:27 AM EDT [...] the medicines you take, including prescription and zvds-vvb-kfczyhs medicines, vitamins_._and herbal supplements. _ _ _ [...] may report side effects to FDA at 3-620-EPH-6994. General Information about the safe and effective [...] sodium acetate trihydrate, trehalose dihydrate. Manufactured by: [employer] A Member of the [employer], [address] [place] [address] [place] [address] [place] License No.[id number] For more lnformation, go to www.Fanbouts or_call 9-633-198-38BZ. This Medication Guide has been approved by [...] With And Without Contrast Willard Epperson MD [address] [place] [address] Status Reason Specialty Diagnoses / Procedures Referred By Contact Referred To Contact Authorized Specialty Services Required/Patien t's Best Interest Physical Therapy Diagnoses Multiple sclerosis (HCC) Willard Epperson MD [address] [place] [address] Status Reason Specialty Diagnoses / Procedures Referre d By Contact Referred To Contact Closed Radiology Diagnoses Multiple sclerosis (HCC) Procedures MR Brain Without Contrast Willard Epperson MD [address] [place] [address] Status Reason Specialty Diagnoses / Procedures Referred By Contact Referred To Contact Closed Specialty Services Required/Patien t's Best Interest Real Estate Sales Agent Diagnoses Multiple sclerosis (HCC) Willard Epperson MD [address] [place], [place] [address] [place] [address] Dory Velez LISW-S Status Reason Specialty Diagnoses / Procedures Referred By Contact Referred To Contact New Request Radiology Diagnoses Multiple sclerosis, primary progressive (HCC) Procedures MR Thoracic Spine With And Without Contrast Willard Epperson MD [address] [place] [address] Status Reason Specialty Diagnoses / Procedures Referred By Contact Referred To Contact New Request Radiology Diagnoses Multiple sclerosis, primary progressive (HCC) Procedures MR Cervical Spine With And Without Contrast Willard Epperson MD [address] [place] [address] Status Reason Specialty Diagnoses / Procedures Referred By Contact Referred To Contact New Request Radiology Diagnoses Multiple sclerosis, primary progressive (HCC) Procedures MR Brain With And Without Contrast Willard Epperson MD [address] [place] [address] Status Reason Specialty Diagnoses / Procedures Referred By Contact Referred To Contact Authorized Specialty Services Required/Patie nt's Best Interest Home Health Services Diagnoses Multiple sclerosis, primary progressive (HCC) Willard Epperson MD [address] [place] [address] Specialty Diagnoses / Procedures Referred By Contac t Referred To Contact Real Estate Sales Agent Diagnoses Multiple sclerosis, primary progressive (HCC) Willard Epperson MD [address] [place] [address] Dory Velez LISW-S Referral ID Status Reason Start Date Expiration Date V isits Requested Visits Authorized [id number] Closed Specialty Services Required/[place] ent's Best Interest 04/09/2021 04/09/2022 1 1 Advance Directives No Advanced Directives Records FoundDocuments on File Type Date Recorded Patient Grill Chef Expl anation Advance Directives and [place] Will 04/12/2019 8:19 AM Documents on File Type Date Recorded Patient Grill Chef Expl anation Advance Directives and [place] Will 04/12/2019 8:19 AM Documents on File Type Date Recorded Patient Grill Chef Expl anation Advance Directives and [place] Will 10/18/2019 6:47 AM Documents on File Type Date Recorded Patient Grill Chef Expl anation Advance Directives and [place] Will 10/18/2019 6:47 AM Documents on File Type Date Recorded Patient Grill Chef Expl anation Advance Directives and [place] Will 04/17/2020 6:47 AM Documents on File Type Date Recorded Patient Grill Chef Expl anation Advance Directives and [place] Will 04/17/2020 6:47 AM Documents on File Type Date Recorded Patient Grill Chef Expl anation Advance Directives and [place] Will 10/16/2020 6:47 AM Documents on File Type Date Recorded Patient Grill Chef Expl anation Advance Directives and [place] Will 10/16/2020 6:47 AM Documents on File Type Date Recorded Patient Grill Chef Expl anation Advance Directives and [place] Will 04/09/2021 6:47 AM Documents on File Type Date Recorded Patient Grill Chef Expl anation Advance Directives and [place] Will 04/09/2021 6:47 AM Advance Directive Response Recorded Date/ Time Living Will Yes September 16, 2021 2:30pm Power of Pulmonary Function Technician Yes September 16 2:30pm Advance Directive Response Recorded Date/ Time Name of Medical Power of Pulmonary Function Technician jacque schwartz September 16, 2021 2:30pm Living Will Yes September 16, 2021 2:30pm Power of Pulmonary Function Technician Yes September 16 2:30pm Advance Directive Response Recorded Date/ Time Living Will Yes September 16, 2021 1:30pm Power of Pulmonary Function Technician Yes September 16 1:30pm Advance Directive Response Recorded Date/ Time Living Will Yes July 05 11:24am Power of Pulmonary Function Technician Yes July 05, 2022 11:24am Advance Directive Response Recorded Date/ Time Living Will Yes July 05 12:24pm Power of Pulmonary Function Technician Yes July 05, 2022 12:24pm History of Present Illness * Jeanne Hilario, CAREN - 02/13/2017 1:04 PM EDT [phone] order along with face [...] advised patient to not hesitate to call /[email or web address] if any serious issues arose tonight. Patient and caregiver voiced understanding. documented in this encounter* Willard Epperson MD - 04/16/2019 8:02 PM EST [facility] 04/12/2019 IMPRESSIONS Britney [...] trials and in our experience here at [facility], most infusion related reactions are mild to [...] visit. 3. Please sign up for the its learning patient portal. [employer] provides assess to your medical record and test results, allows you to communicate with your care providers, and allows you to complete patient questionnaires prior to each clinic visit. 4. When your testing is completed, your MS care team will review all results and contact you if a finding requires follow up before your next visit. Otherwisee, we will discuss your test results hyue-sb-rveh at your next clinic visit. Many of your testing results, however, can be reviewed online through [employer]. MS Disease Summary Primary Neurological Diagnosis and [...] hours as needed for pain. AFLURIA QUAD [id number], PF, syringe ADMINISTERED AT DDM 0 atenolol [...] Swelling Naproxen Sodium Hives, Itching and Swelling Juppresfyxzp-Hlv-Zutsktez tachycardia tachycardia Penicillins Hives Sulfa (Sulfonamide Antibiotics) [...] of links to MS educational sources online: [facility] (www.[facility].com/MS) Multiple Sclerosis Association of [place] (www.mymsaa.org) Multiple Sclerosis Foundation (www.msfocus.org) Can do Multiple Sclerosis ( www.mscando.org ) National Multiple Sclerosis Society (www.nationalmssociety.org) Twitter: @[facility] Facebook: [facility] Instagram: [employer] 5. For information on the [facility]'s clinical trial program contact Sari Bolden [facility]. 6. MS Groups take place at [facility] Education and Resource Center at [facility]: [address] [place] [address]. Parking vouchers will be provided. Life with [...] the Monday of the month from 5:30-7pm. Caregiver/Reservations Sales Supervisor Support Group: offers opportunities to connect [...] experienced yoga practitioners. Pre- registration is required: [phone] 7. Education regarding disease modifying therapy discussed [...] Willard Epperson MD Neuroimmunology and Neuroinfectious Disease [facility] at [facility] and [place] [facility] ([facility] fax) [place] Address: [address] [place] [address], [address] [place] [address] [place] Address [facility] [facility], [address] [place] [address] documented in this encounter* Jeanne Hilario, ART PSYCHOTHERAPIST - 04/18/2019 8:25 AM EST Faxed [facility] ([phone]) a physical therapy referral along with face sheet and Insurance card to call patient to schedule. documented in this encounter* Willard Epperson MD - 10/18/2019 10:43 AM EDT Telephone Visit Via Phone Call [facility] [address] [facility], NEUROSCIENCE [address] [facility] [phone] Telephone Visit [facility] 10/18/2019 Willard Epperson MD Provider Location: [facility] Patient Location Quality Assurance Intern: None Patient Location: Patient's Home Patient: Britney [...] there are inherent diagnostic limitations compared to ooio-ar-bpcc evaluations. We elected toproceed with the telephone visit telemedicine consultation. HPI Today she is currently at the [facility] receiving her infusion. She has been feeling [...] hours as needed for pain. AFLURIA QUAD [id number], PF, SYRINGE ADMINISTERED AT [facility] ATENOLOL (TENORMIN) 25 MG TABLET [...] Continue with vitamin D 5000 units daily rzem-aty-ywdvaer Continue Ampyra 10 mg twice daily and [...] EDT Faxed new Physical Therapy order to [facility] ([phone]) to call and schedule in home visits with patient along with face sheet and Insurance card. documented in this encounter* Libia Steve RN - 04/17/2020 10:33 AM EST Ocrevus medication guide given to and reviewed with pt. Pt voiced understanding. documented in this encounter* Ayanna Combs PT - 04/17/2020 12:57 PM EST Pt [...] her biggest problem. Patient lives alone in [place], [place] and sister lives in [place]. Falls in past 6 months: > 6, [...] assess for PT related needs. * Dory Velez, PERSONAL LINES AGENT-S - 04/17/2020 11:56 AM EST SW met with pt and her sister Jacque while pt was receiving her Ocrevus infusion. Introduced self and reviewed SW role. Pt presented as pleasant and easily engaged in conversation. Pt shared she doesnot like getting old. Validated her feelings - that with age can come the need for help. Pt has a Poke[employer] Call dical alert system. She is receiving 2 hours of aide support, 2 times per week. Her bathroom was remodeled with a walk-in shower and a chair lift was installed to get pt safely from her garage into the home. 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 Jacque lives in [place]. In reviewing past and present in-home supports, [...] info provided: [facility] ([facility]) at - Re: PASSPORT program. Advance Directives Packet * Willard Epperson MD - 04/17/2020 10:30 AM EST Patient Name: Britney Peraza : 1960 MR #: [id number] Other Physicians: Joan Hughes MD (Primary Care Physician) [facility] Follow-up Visit [...] me in 3 months. 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 Confirms about 12 calls with Sisasa over the last year. Would benefit significantly [...] Swelling Naproxen Sodium Hives, Itching and Swelling Amcnhqtmsfum-Uga-Dptsavwf tachycardia tachycardia Penicillins Hives Sulfa (Sulfonamide Antibiotics) Hives Tetracycline Hives Current Outpatient Medications Medication Sig Dispense Refill acetaminophen (TYLENOL) 500 MG tablet Take 500 mg by mouth every 6 (six) hours as needed for pain. AFLURIA QUAD [id number], PF, syringe ADMINISTERED AT DDM 0 atenolol [...] EST Faxed a physical therapy order to [facility] ([phone]) along with face sheet and Insurance card to call and schedule with patient. documented in this encounter* Willard Epperson MD - 09/28/2018 3:49 PM EDT [facility] at [facility] Clinic Follow Up Note 09/28/2018 IMPRESSIONS Britney [...] trials and in our experience here at [facility], most infusion related reactions are mild to [...] visit. 3. Please sign up for the its learning patient portal. [employer] provides assess to your medical record and test results, allows you to communicate with your care providers, and allows you to complete patient questionnaires prior to each clinic visit. 4. When your testing is completed, your MS care team will review all results and contact you if a finding requires follow up before your next visit. Otherwisee, we will discuss your test results hnis-eu-nqfr at your next clinic visit. Many of your testing results, however, can be reviewed online through [employer]. DISEASE SUMMARY Primary Neurological Diagnosis and Date [...] is also noticeable by her sister and uceklcb-et-whq with regards toambulation. There have been no [...] hours as needed for pain. AFLURIA QUAD [id number], PF, syringe ADMINISTERED AT DDM 0 atenolol [...] Swelling Naproxen Sodium Hives, Itching and Swelling Lyuormffffam-Pxm-Kovhnwwo tachycardia tachycardia Penicillins Hives Sulfa (Sulfonamide Antibiotics) [...] Willard Epperson MD Neuroimmunology and Neuroinfectious Disease [facility] at [facility] and [facility] ([facility] fax) [place] Address: [address] [place] [address], [address] [place] [address] [place] Address [address] [facility], [address] [place] [address] documented in this encounter Summary Purpose Family [...] SEPSIS UTI WITH SEPSIS ADMISSION EXAM SENIOR CARE LABWORK LABWORK Reason for Visit Debility Acute [...] SEPSIS UTI WITH SEPSIS ADMISSION EXAM SENIOR CARE LABWORK LABWORK LABWORK LAB WORK NEW SYMPTOMS/CONCERN [...] SEPSIS UTI WITH SEPSIS ADMISSION EXAM SENIOR CARE LABWORK LABWORK LABWORK LAB WORK NEW SYMPTOMS/CONCERN ALTERED MENTAL STATUS SENIOR CARE LABWORK NEW SYMPTOMS/CONCERNS Reason for Visit Debility Acute respiratory failure with hypoxia Complicated urinary tract infection COVID-19 Lactic acidosis Sepsis Chief Complaint ADMISSION EXAM SENIOR CARE LABWORK LABWORK LABWORK LAB WORK NEW SYMPTOMS/CONCERN ALTERED MENTAL STATUS SENIOR CARE LABWORK NEW SYMPTOMS/CONCERNS SENIOR CARE LABWORK SENIOR CARE LAB WORK SENIOR CARE LAB WORK Chief Complaint LABWORK LABWORK LAB WORK NEW SYMPTOMS/CONCERN ALTERED MENTAL STATUS SENIOR CARE LABWORK NEW SYMPTOMS/CONCERNS SENIOR CARE LABWORK SENIOR CARE LAB WORK SENIOR CARE LAB WORK SENIOR CARE LABWORK Chief Complaint NEW SYMPTOMS/CONCERN ALTERED MENTAL STATUS SENIOR CARE LABWORK NEW SYMPTOMS/CONCERNS SENIOR CARE LABWORK SENIOR CARE LAB WORK SENIOR CARE LAB WORK SENIOR CARE LABWORK LABWORK MONTHLY EXAM Chief Complaint NEW SYMPTOMS/CONCERN S SENIOR CARE LABWORK SENIOR CARE LAB WORK SENIOR CARE LAB WORK SENIOR CARE LABWORK LABWORK MONTHLY EXAM SENIOR CARE LABWORK Chief Complaint SENIOR CARE LABWORK SENIOR CARE LAB WORK SENIOR CARE LAB WORK SENIOR CARE LABWORK LABWORK MONTHLY EXAM LABWORK SENIOR CARE LABWORK Chief Complaint SENIOR CARE LAB WOR K SENIOR CARE LAB WORK SENIOR CARE LABWORK LABWORK MONTHLY EXAM LABWORK SENIOR CARE LABWORK SENIOR CARE LABWORK ACUTE CARE NOTE Chief Complaint SENIOR CARE LAB WOR K SENIOR CARE LAB WORK SENIOR CARE LABWORK LABWORK MONTHLY EXAM LABWORK SENIOR CARE LABWORK SENIOR CARE LABWORK SENIOR CARE LABWORK ACUTE CARE NOTE ACUTE CARE Chief Complaint MONTHLY EXAM LABWORK SENIOR CARE LABWORK SENIOR CARE LABWORK SENIOR CARE LABWORK ACUTE CARE NOTE ACUTE CARE SENIOR CARE LABWORK SENIOR CARE LAB WORK SENIOR CARE LAB WORK SENIOR CARE LAB WORK ACUTE CARE Chief Complaint LABWORK SENIOR CARE LABWORK SENIOR CARE LABWORK SENIOR CARE LABWORK ACUTE CARE NOTE ACUTE CARE SENIOR CARE LABWORK SENIOR CARE LAB WORK SENIOR CARE LAB WORK SENIOR CARE LAB WORK SENIOR CARE LAB WORK ACUTE CARE Chief Complaint LABWORK SENIOR CARE LABWORK SENIOR CARE LABWORK SENIOR CARE LABWORK ACUTE CARE NOTE ACUTE CARE SENIOR CARE LABWORK SENIOR CARE LAB WORK SENIOR CARE LAB WORK SENIOR CARE LABWORK SENIOR CARE LABWORK SENIOR CARE LAB WORK SENIOR CARE LAB WORK ACUTE CARE Chief Complaint SENIOR CARE LABWORK SENIOR CARE LABWORK ACUTE CARE NOTE ACUTE CARE SENIOR CARE LABWORK SENIOR CARE LAB WORK SENIOR CARE LAB WORK SENIOR CARE LABWORK SENIOR CARE LABWORK SENIOR CARE LAB WORK SENIOR CARE LAB WORK ACUTE CARE SENIOR CARE LABWORK MONTHLY NOTE SENIOR CARE LABWORK ACUTE CARE Chief Complaint SENIOR CARE LABWORK ACUTE CARE NOTE ACUTE CARE SENIOR CARE LABWORK SENIOR CARE LAB WORK SENIOR CARE LAB WORK SENIOR CARE LABWORK SENIOR CARE LABWORK SENIOR CARE LAB WORK SENIOR CARE LAB WORK ACUTE CARE SENIOR CARE LABWORK MONTHLY NOTE SENIOR CARE LABWORK ACUTE CARE SENIOR CARE LABWORK MONTHLY EXAM Chief Complaint SENIOR CARE LAB WOR K SENIOR CARE LABWORK SENIOR CARE LABWORK SENIOR CARE LAB WORK SENIOR CARE LAB WORK ACUTE CARE SENIOR CARE LABWORK MONTHLY NOTE SENIOR CARE LABWORK ACUTE CARE SENIOR CARE LABWORK MONTHLY EXAM SENIOR CARE LAB WORK SENIOR CARE LABWORK SENIOR CARE LABWORK NEW CONCERN Chief Complaint SENIOR CARE LAB WOR K SENIOR CARE LABWORK SENIOR CARE LABWORK SENIOR CARE LAB WORK SENIOR CARE LAB WORK ACUTE CARE SENIOR CARE LABWORK MONTHLY NOTE SENIOR CARE LABWORK ACUTE CARE SENIOR CARE LABWORK MONTHLY EXAM SENIOR CARE LAB WORK SENIOR CARE LABWORK SENIOR CARE LABWORK SENIOR CARE LABWORK NEW CONCERN Chief Complaint SENIOR CARE LABWORK SENIOR CARE LABWORK SENIOR CARE LAB WORK SENIOR CARE LAB WORK ACUTE CARE SENIOR CARE LABWORK MONTHLY NOTE SENIOR CARE LABWORK ACUTE CARE SENIOR CARE LABWORK MONTHLY EXAM SENIOR CARE LAB WORK SENIOR CARE LABWORK SENIOR CARE LABWORK SENIOR CARE LABWORK NEW CONCERN SENIOR CARE LABWORK Chief Complaint SENIOR CARE LABWORK MONTHLY NOTE SENIOR CARE LABWORK ACUTE CARE SENIOR CARE LABWORK MONTHLY EXAM SENIOR CARE LAB WORK SENIOR CARE LABWORK SENIOR CARE LABWORK SENIOR CARE LABWORK NEW CONCERN SENIOR CARE LABWORK MONTHLY EXAM SENIOR CARE LABWORK Chief Complaint MONTHLY NOTE SENIOR CARE LABWORK ACUTE CARE SENIOR CARE LABWORK MONTHLY EXAM SENIOR CARE LAB WORK SENIOR CARE LABWORK SENIOR CARE LABWORK SENIOR CARE LABWORK NEW CONCERN SENIOR CARE LABWORK MONTHLY EXAM SENIOR CARE LABWORK SENIOR CARE LABWORK Chief Complaint SENIOR CARE LABWORK SENIOR CARE LABWORK MONTHLY NOTE SENIOR CARE LABWORK MONTHLY EXAM SENIOR CARE LABWORK SENIOR CARE LAB WORK SENIOR CARE LABWORK MOTNHLY NOTE SENIOR CARE LABWORK Chief Complaint SENIOR CARE LABWORK SENIOR CARE LABWORK MONTHLY NOTE SENIOR CARE LABWORK MONTHLY EXAM SENIOR CARE LABWORK SENIOR CARE LAB WORK SENIOR CARE LABWORK MOTNHLY NOTE SENIOR CARE LABWORK SENIOR CARE LAB WORK Chief Complaint SENIOR CARE LABWORK MONTHLY EXAM SENIOR CARE LABWORK SENIOR CARE LAB WORK SENIOR CARE LABWORK MOTNHLY NOTE SENIOR CARE LABWORK MONTHLY EXAM SENIOR CARE LAB WORK SENIOR CARE LABWORK LABWORK Chief Complaint MONTHLY EXAM SENIOR CARE LABWORK SENIOR CARE LAB WORK SENIOR CARE LABWORK MOTNHLY NOTE SENIOR CARE LABWORK MONTHLY EXAM SENIOR CARE LAB WORK SENIOR CARE LABWORK LABWORK SENIOR CARE LAB WORK Chief Complaint SENIOR CARE LABWORK LABWORK SENIOR CARE LAB WORK SENIOR CARE LABWORK SENIOR CARE LABWORK MONTHLY EXAM MONTHLY NOTE MONTHLY EXAM SENIOR CARE LAB WORK Chief Complaint MONTHLY NOTE MONTHLY EXAM MONTHLY EXAM - SMALL BUSINESS SALES REPRESENTATIVE SENIOR CARE LAB WORK MONTHLY EXAM - MD SENIOR CARE LAB WORK Chief Complaint MONTHLY EXAM - SMALL BUSINESS SALES REPRESENTATIVE SENIOR CARE LAB WORK MONTHLY EXAM - MD SENIOR CARE LAB WORK LABWORK Chief Complaint MONTHLY EXAM - SMALL BUSINESS SALES REPRESENTATIVE SENIOR CARE LAB WORK MONTHLY EXAM - MD SENIOR CARE LAB WORK MONTHLY NOTE -PA NEW CONCERN SENIOR CARE LAB WORK LABWORK Chief Complaint MONTHLY EXAM - SMALL BUSINESS SALES REPRESENTATIVE SENIOR CARE LAB WORK MONTHLY EXAM - MD SENIOR CARE LAB WORK MONTHLY NOTE -PA NEW CONCERN SENIOR CARE LAB WORK MONTHLY EXAM MD LABWORK SENIOR CARE LAB WORK Chief Complaint SENIOR CARE LAB WOR K MONTHLY NOTE -PA NEW CONCERN SENIOR CARE LAB WORK MONTHLY EXAM MD LABWORK SENIOR CARE LAB WORK SENIOR CARE LAB WORK SENIOR CARE LAB WORK Chief Complaint NEW CONCERN SENIOR CARE LAB WORK MONTHLY EXAM MD LABWORK SENIOR CARE LAB WORK SENIOR CARE LAB WORK NEW CONCERN SENIOR CARE LAB WORK MONTHLY EXAM Chief Complaint Admit Date MONTHLY NOTE June 07, 2024 4: 12pm SENIOR CARE LAB WORK June 11, 2024 5:30am NEW CONCERN June 18, 2024 1 :49pm SENIOR CARE LAB WORK July 09, 2024 5:00am MONTHLY EXAM July 09, 2024 5 :27pm SENIOR CARE LAB WORK August 06, 2024 4: 00am SENIOR CARE LAB WORK August 19, 2024 1 2:05pm Chief Complaint Admit Date MONTHLY NOTE June 07, 2024 4: 12pm SENIOR CARE LAB WORK June 11, 2024 5:30am NEW CONCERN June 18, 2024 1 :49pm SENIOR CARE LAB WORK July 09, 2024 5:00am MONTHLY EXAM July 09, 2024 5 :27pm NEW CONCERN August 05, 2024 4:07 pm SENIOR CARE LAB WORK August 06, 2024 4: 00am SENIOR CARE LAB WORK August 19, 2024 1 2:05pm NEW CONCERN August 19, 2024 4:4 9pm Chief Complaint Admit Date NEW CONCERN August 05, 2024 4:07 pm SENIOR CARE LAB WORK August 06, 2024 4: 00am SENIOR CARE LAB WORK August 19, 2024 1 2:05pm NEW CONCERN August 19, 2024 4:4 9pm SENIOR CARE LAB WORK September 03, 2024 5: 00am MONTHLY EXAM September 03, 2024 4:52 pm LABWORK September 04, 2024 5:00 am SENIOR CARE LAB WORK October 08, 2024 5:00 am Chief Complaint Admit Date NEW CONCERN August 05, 2024 4:07 pm SENIOR CARE LAB WORK August 06, 2024 4: 00am SENIOR CARE LAB WORK August 19, 2024 1 2:05pm NEW CONCERN August 19, 2024 4:4 9pm SENIOR CARE LAB WORK September 03, 2024 5: 00am MONTHLY EXAM September 03, 2024 4:52 pm LABWORK September 04, 2024 5:00 am SENIOR CARE LAB WORK October 08, 2024 5:00 am SENIOR CARE LAB WORK October 11, 2024 12:3 0pm Additional Source Comments Addendum Note - Willard Epperson MD - 01/23/2018 11:17 AM EDTQuick Note - Elif Augustin, TECHNOLOGIST - 10/18/2019 7:15 AM EDT Miscellaneous Notes (unrecog nized section and content) Addended by: WILLARD EPPERSON on: 01/23/2018 11:17 AM Modules accepted: Orders in this encounter This technologist ([id number]) and ([id number]) wore surgical masks/gloves during MRI exam. Patient wore surgical mask. documented in this encounter Reason for Visit (unrecogniz ed section and content) Reason Comments Multiple Sclerosis [facility] Specialty Diagnoses / Procedures Referred By Contac t Referred To Contact Infusion Therapy Diagnoses Multiple sclerosis, primary progressive (HCC) Procedures WY INJECTION, OCRELIZUMAB, 1 MG Willard Epperson MD [address] [place] [address] [facility] [address] [place] [address] Referral ID Status Reason Start Date Expiration Date V isits Requested Visits Authorized [id number] Pending Review 03/31/2021 05/30/2021 1 1 Status Reason Specialty Diagnoses / Procedures Referre d By Contact Referred To Contact Closed Radiology Diagnoses Multiple sclerosis (HCC) Procedures MR Brain With And Without Contrast Willard Epperson MD [address] [place] [address] Reason Comments Multiple Sclerosis 6 month [facility] Status Reason Specialty Diagnoses / Procedures Referred By Contact Referred To Contact Closed Infusion Therapy Diagnoses Multiple sclerosis Procedures WY INJECTION, OCRELIZUMAB, 1 MG Willard Epperson MD [address] [facility] [address] [place] [address] [facility] [address] [place] [address] Reason Comments Multiple Sclerosis Status Reason Specialty Diagnoses / Procedures Referred By Contact Referred To Contact Closed Infusion Therapy Diagnoses Multiple sclerosis, primary progressive (HCC) Procedures WY INJECTION, OCRELIZUMAB, 1 MG Willard Epperson MD [address] [place] [address] [facility] [address] [place] [address] Status Reason Specialty Diagnoses / Procedures Referre d By Contact Referred To Contact Closed Radiology Diagnoses Multiple sclerosis (HCC) Procedures MR Brain Without Contrast Willard Epperson MD [address] [place] [address] Status Reason Specialty Diagnoses / Procedures Referred By Contact Referred To Contact Authorized Infusion Therapy Diagnoses Multiple sclerosis [facility] 6 months Procedures WY INJECTION, OCRELIZUMAB, 1 MG CHEMO Willard Epperson MD [address] [facility] [address] [place] [address] [facility] [address] [place] [address] Status Reason Specialty Diagnoses / Procedures Referred By Contact Referred To Contact Canceled Specialty Services Required/[facility] Health Services Diagnoses Multiple sclerosis, primary progressive (HCC) Willard Epperson MD [address] [place] [address] [facility] [address] [facility] [address] Status Reason Specialty Diagnoses / Procedures Referred By Contact Referred To Contact Authorized Infusion Therapy Diagnoses Multiple sclerosis, primary progressive (HCC) Procedures WY INJECTION, OCRELIZUMAB, 1 MG Willard Epperson MD [address] [facility] [address] [place] [address] [facility] [address] [place] [address] Reason Comments Multiple Sclerosis [facility] 6mo, 2hr Status Reason Specialty Diagnoses / Procedures Referred By Contact Referred To Contact Closed Infusion Therapy Diagnoses Multiple sclerosis [facility] 6 months Procedures WY INJECTION, OCRELIZUMAB, 1 MG CHEMO Willard Epperson MD [address] [facility] [address] [place] [address] [facility] [address] [facility] [place] [place] [address] Reason Onset Date Comments Medication Refill 01/08/2021 Reason Comments Multiple Sclerosis Care Teams (unrecognized sec tion and content) Medical Coding Instructor Relationship Specialty Start Date End Date Joan Hughes MD [address] [place] [id number] PCP - General Family Medicine 09/28/18 Medical Coding Instructor Relationship Specialty Start Date End Date Joan Hughes MD [address] [place] [address] [phone] PCP - General Family Medicine 09/28/18 Medical Coding Instructor Relationship Specialty Start Date End Date Joan Hughes MD [address] [place] [address] [phone] PCP - General Family Medicine 09/28/18 Medical Coding Instructor Relationship Specialty Start Date End Date Joan Hughes MD [address] [facility] [address] [place] [address] [id number] PCP - General Family Medicine 09/28/18 Medical Coding Instructor Relationship Specialty Start Date End Date Joan Hughes MD [address] [place] [address] PCP - General Family Practice 05/11/16 Team Status: Active Member Role Status Dates Dr. Joan Hughes MD Family Provider Active Dr. Joan Hughes MD Primary Care Provider Active Team Status: Inactive Member Role Status Dates Dr. Joan Hughes MD Primary Care Provider Active Britney Worthington SMALL BUSINESS SALES REPRESENTATIVE, SMALL BUSINESS SALES REPRESENTATIVE-C Attending Provider Active Team Status: Inactive Member [...] Active Asad Jamison MD Attending Provider Active Medical Coding Instructor Relationship Specialty Start Date End Date Joan Hughes MD [address] [facility] [address] [place] [address] [id number] PCP - General Family Medicine 09/28/18 Team [...] Active Member Role Status Dates Dr. Joan Hughse MD Primary Care Provider Active Britney CULVER SMALL BUSINESS SALES REPRESENTATIVE-C Attending Provider Active Team Status: Inactive Member Role Status Dates Dr. Joan Hughes MD Primary Care Provider Active Breanne CULVER MD Attending Provider, Referring Provider Active Team Status: Inactive Member Role Status Dates Dr. Joan Hughes MD Primary Care Provider Active Britney CULVER SMALL BUSINESS SALES REPRESENTATIVE-C Attending Provider Active Team Status: Inactive Member [...] End: June 07, 2024 Britney Worthington NP SMALL BUSINESS SALES REPRESENTATIVE-C Attending Provider Active Start: June 07, 2024 [...] End: June 18, 2024 Britney Worthington NP SMALL BUSINESS SALES REPRESENTATIVE-C Attending Provider Active Start: June 18, 2024 [...] Status: Active Member Role Status Dates Dr. Jaon Hughes MD Primary Care Provider Active Start: [...] 2024 End: August 05, 2024 Britney Worthington SMALL BUSINESS SALES REPRESENTATIVE, SMALL BUSINESS SALES REPRESENTATIVE-C Attending Provider Active Start: August 05, 2024 End: August 05, 2024 Team Status: Inactive Member Role Status Dates Dr. Joan Hughes MD Primary Care Provider Active Start: August 06, 2024 End: August 06, 2024 Breanne CULVRE MD Attending Provider Active Start: August 06, 2024 End: August 06, 2024 Breanne CULVER MD Referring Provider Active Start: August 06, 2024 End: August 06, 2024 Team Status: Inactive Member Role Status Dates Dr. Joan Hughes MD Primary Care Provider Active Start: August 19, 2024 End: August 19, 2024 Britney Worthington SMALL BUSINESS SALES REPRESENTATIVE, SMALL BUSINESS SALES REPRESENTATIVE-C Attending Provider Active Start: August 19, 2024 [...] Care Provider Active Start: October 11, 2024 Britney CULVER NP-C Attending Provider Active Start: October 11, 2024 Team Status: Active Member Role Status Dates Dr. Joan Hughes MD Primary Care Provider Active Start: November 05, 2024 Britney CULVER NP-C Attending Provider Active Start: November 05, 2024 Team Status: Active Member Role Status Dates Dr. Joan Hughes MD Primary Care Provider Active Start: November 07, 2024 Breanne CULVER MD Attending Provider Active Start: November 07, 2024 Team Status: Inactive Member Role Status Dates Dr. Joan Hughes MD Primary Care Provider Active Start: October 11, 2024 End: October 11, 2024 Britney CULVER SMALL BUSINESS SALES REPRESENTATIVE-C Attending Provider Active Start: October 11, 2024 End: October 11, 2024 Team Status: Active Member Role Status Dates Dr. Joan Hughes MD Primary Care Provider Active Start: November 15, 2024 Breanne CULVER MD Attending Provider Active Start: November 15, 2024 INFORMATION SOURCE (unrecogn ized section and content) DATE CREATED AUTHOR 04/13/2021 [facility] DATE CREATED AUTHOR AUTHOR'S ORGANIZ ATION 01/15/2022 [facility] DATE CREATED AUTHOR AUTHOR'S ORGANIZ ATION 11/16/2022 [facility] DATE CREATED AUTHOR AUTHOR'S ORGANIZ ATION 12/12/2024 [facility] Goals (unrecognized section and content) Goals [...] or prosecute any alcohol or drug abuse patient.[facility] FOR RECORDS PERTAINING TO PATIENTS WHO [...] BE BASED ON THE PRIMARY CLINICAL RECORDS. [facility] [employer] [facility]. provides no warranty or guarantee of the accuracy or completeness of information in this document.
[2024-12-13 22:33] LABS: Color, Urine Amber (Yellow); Glucose, Dipstick Normal (Normal); Ketone-Dipstick Negative (Negative); Leukocyte Esterase-Dipstick 500 /ul (Negative); Nitrite-Dipstick Negative (Negative); Occult Blood-Urine 250 /ul (Negative); Protein-Dipstick 500 mg/dl (Negative); Specific Gravity, Urine 1.020 (1.002-1.030); Urine Bilirubin Dipstick Negative (Negative)
[2024-12-13 23:46] LABS: Red Blood Cells-Urine 50-100 SEEN /hpf (0-5)
[2024-12-13 23:47] LABS: Squamous Epithelial Cells - UA 0-5 SEEN /hpf (5-10)
== END ==
LOC: OLS.WHLEAS 13:38
PROVIDERS: PCP Family Medicine; Referring Provider Internal Medicine; Visit Provider Internal Medicine
DX: N39.0 Urinary tract infection, site not specified (principal)
CPT/HCPCS: 81001; 87077; 87086; 87088; 87186

== ENCOUNTER → 2024-12-16 05:00 | Outpatient (REF) | payer MEDICARE, SELFPAY ==
[2024-12-16 09:11] LABS: Anion Gap 15 (5-15); BUN 28 mg/dL (4-19); BUN/Creat Ratio 27.6 RATIO (10-20); Calcium,Total 10.1 mg/dL (7.6-11.0); Carbon Dioxide 16.7 mmol/L (21.0-32.0); Chloride 105 mmol/L (98-108); Glucose 133 mg/dL (70-99); Potassium 4.3 mmol/L (3.3-5.1)
[2024-12-16 12:02] LABS: Hematocrit 42.8 % (37-47); Hemoglobin 12.5 g/dL (12.0-15.0); Immature Granulocytes Count 0.140 X10^3/uL (0.0-0.0); Mean Corp Hgb Conc 29.2 g/dL (32-36); Mean Corpuscular Volume 83.6 fL (81-99); Mean Platelet Vol. 8.5 fl (6.2-12.0); NRBC Flagged by Analyzer 0 % (0-5); POSITIVE DIFFERENTIAL YES; Platelet Count 520 K/mm3 (150-450); RBC Distribution Width CV 16.9 % (11.6-14.6); RBC Distribution Width SD 50.9 fl (35.1-43.9); Red Blood Count 5.12 M/mm3 (4.2-5.4); White Blood Count 13.8 K/mm3 (4.4-11.0)
[2024-12-16 12:23] LABS: Differential Indicated SCAN CRITERIA MET
== END ==
LOC: OLS.WHLEAS 05:00
PROVIDERS: PCP Family Medicine; Visit Provider Internal Medicine
DX: N39.0 Urinary tract infection, site not specified (principal); E11.9 Type 2 diabetes mellitus without complications; I10 Essential (primary) hypertension; E78.5 Hyperlipidemia, unspecified; J96.11 Chronic respiratory failure with hypoxia; G35 Multiple sclerosis
CPT/HCPCS: 36415; 80048; 85025

== ENCOUNTER 2025-01-03 21:54 | Inpatient (IN) | payer MEDICARE, SELFPAY ==
[2025-01-03] VITALS (8 sets, daily range): BP systolic 85–98; BP diastolic 46–51; PULSE 123–147; RESP 20–30; TEMP 36.1–38.7; O2SAT 12–100; BMI 23.3
--- NOTE | 2025-01-03 22:03 | CT_ITS ---
PROCEDURE: CT BRAIN/HEAD WITHOUT CONTRAST 01/03/2025 REASON FOR EXAM: ALTERED MS TECHNIQUE: CT BRAIN/HEAD WITHOUT CONTRAST. Coronal and Sagittal reconstruction series were provided. One or more dose reduction techniques were used (e.g., Automated exposure control, adjustment of the mA and/or kV according to patient size, use of iterative reconstruction technique. RADIATION DOSE SUMMARY: CTDlvol: 44.99 mGy DLP: 812.98 mGycm COMPARISON: CT head 01/25/2020, brain MRI 11/13/2021. FINDINGS: No acute intracranial hemorrhage, extra-axial collection, mass effect or evidence of acute infarct. Moderate generalized brain parenchymal volume loss. Moderate-advanced patchy hypoattenuation in the supratentorial periventricular white matter similar to prior exam, which may reflect a combination of chronic small-vessel ischemic changes and demyelinating disease, with reported history of MS. Grossly unremarkable orbits. Intact skull base and calvarium. Atherosclerotic vascular calcifications. Visualized paranasal sinuses and bilateral mastoid air cells are well-aerated. CT/Brain/Head without Contrast IMPRESSION: No evidence of acute intracranial pathology. Moderate generalized parenchymal volume loss, and patchy hypoattenuation in the supratentorial white matter similar to prior exam; likely a combination of chronic microangiopathic changes and demyelinatin g disease, with reported history of multiple sclerosis. Reading Location: [id number]
--- NOTE | 2025-01-03 22:03 | EKG12_ITS ---
Test Reason : DYSRHYTHMIA Blood Pressure : */* mmHG Vent. Rate : 142 BPM Atrial Rate : 142 BPM P-R Int : 134 ms QRS Dur : 62 ms QT Int : 278 ms P-R-T Axes : 9 -69 56 degrees QTcB Int : 427 ms Critical Test Result: High HR Sinus tachycardia Possible Left atrial enlargement Low voltage QRS Left anterior fascicular block Possible Anterolateral infarct , age undetermined Abnormal ECG Confirmed by MALLORIE JOVEL MD ([id number]), publication editor JOHN BUCK ([id number]) on 01/06/2025 7:01:15 AM Referred By: Confirmed By: MALLORIE JOVEL MD
[2025-01-03] MEDS: 0.9% Normal Saline (1000mL) 1,000 ML 999 ML IV ×2 (22:10→23:13)
--- OUTSIDE RECORDS SUMMARY | 2025-01-03 22:11 | XMS RPT_ITS | CCD ---
Author Organization [facility] Care Team Providers Care [employer] Specialist Name Role Phone No, Physician Unavailable Unavailable [...] Paez Primary Care Unavailable WILLARD EPPERSON Admitting Unavailabl e JOAN HUGHES Primary Care Unavailable WILLARD EPPERSON Admitting Unavailabl e WILLARD EPPERSON Attending Unavailabl e JOAN HUGHES Primary Care Unavailable WILLARD EPPERSON Referring Unavailabl e WILLARD EPPERSON Admitting Unavailabl e WILLARD EPPERSON Attending Unavailabl e JOAN HUGHES Primary Care Unavailable WILLARD EPPERSON Admitting Unavailabl e WILLARD EPPERSON Referring Unavailabl e WILLARD EPPERSON Admitting Unavailabl JOAN Paez Primary Care Unavailable Dr. Joan Hughes Primary Care Provider [phone] Dr. Erick Jin Emergency Provider [phone] Faheem Lamb Admit Provider Dr. Faheem Lamb Attending Provider Dr. Faheem Lamb Other Provider Dr. Maile Apodaca Attending Provider Dr. Maile Apodaca Other Provider Dr. Maile Apodaca Referring Provider Dr. Jose Cruz Wright Attending Provider Dr. Jose Cruz Wright Other Provider Dr. Alan Terry Other Provider Jaylen 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, 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-C Meera Other Provider Dr. Rina Diaz Other Provider Dr. Alan Terry Attending Provider Dr. Rina Diaz Attending Provider Dr. Bijan Swain Attending Provider Dr. Bijan Swain Other Provider Dr. Anil Abreu Attending Provider Dr. Alek Ray Referring Provider Elin 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, 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-C Britney Attending Provider Joan Sher MD Primary Care Provider JOAN HUGHES Primary Care Unavailable WILLARD EPPERSON Attending JOAN Antunez Primary Care Unavailable WILLARD EPPERSON Attending Dr. Joan Antunez Primary Care Provider Dr. Joan Hughes Primary Care Provider Elin 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, 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-C Britney Attending Provider Dr. Joan Sher Primary Care Provider Elin 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, 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-C Britney Attending Provider Dr. Joan Sher Primary Care Provider Elin 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, 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-C Britney Attending Provider Dr. Joan Sher Primary Care Provider Elin 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, 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-C Britney Attending Provider Dr. Joan Sher Primary Care Provider Tickgray 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, 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-C Britney Attending Provider Joan Sher MD Primary Care Provider Dr. Breanne Ruiz Attending Provider [phone] Dr. Joan Hughes Primary Care Provider Elin 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, 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-C Britney Attending Provider Dr. Breanne Hensley Attending Provider [phone] Dr. Joan Hughes Primary Care Provider Elin 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, 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-C Britney Attending Provider Dr. Joan Sher Primary Care Provider Elin 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, 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-C Britney Attending Provider Dr. Breanne Hensley Attending Provider [phone] Dr. Joan Hughes Primary Care Provider Elin 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, 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-C Britney Attending Provider Dr. Joan Sher Primary Care Provider Tickgray 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, 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-C Britney Attending Provider MD Breanne Robbins Attending Provider Dr. Joan Sher Primary Care Provider Tickgray 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, 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-C Britney Attending Provider Dr. Breanne Ruiz Attending Provider [phone] Dr. Joan Hguhes Primary Care Provider Tickgray 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, 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-C Britney Attending Provider OLGA Santacruz Attending Provider [phone] FRANCIS Romeo Attending Provider [phone] Dr. Joan Hughes Primary Care Provider Tickgray 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, 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-C Britney Attending Provider Dr. Breanne Ruiz Attending Provider [phone] OLGA Santacruz Attending Provider [phone] Ferullo, 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-C Poornima Attending Provider Dr. Joan Hughes Primary Care Provider Dr. Breanne Ruiz Attending Provider [phone] Dr. Joan Hughes Primary Care Provider Elin 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, 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-C Britney Attending Provider Dr. Joan Hughes MD Primary Care Provider [phone] Elin 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-C, Britney Attending Provider Breanne Ruiz MD Attending Provider Unavaila keara Ruiz MD, Breanne Referring Provider UnavailDr. Breanne Cole MD Attending Provider [phone] Dr. Joan Hughes MD Primary Care Provider [phone] Elin 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-C, Britney Attending Provider Breanne Ruiz MD Attending Provider Unavaila keara Ruiz MD, Breanne Referring Provider Unavaila Dr. Breanne Babin MD Attending Provider [phone] lEin 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-C, Britney Attending Provider [phone] Dr. oJan Hughes MD Primary Care Provider Breanne Ruiz MD Attending Provider Unavaila ble Elin 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-C, Britney Attending Provider Breanne Ruiz MD Referring Provider Unavaila ble Cierae PALOMO, Efewongbe Attending Unavailabl e Oleghe OLS, Efewongbe Referring Unavailabl e Joan Hughes Primary Care Unavailable Oleghe OLS, Efewongbe Attending Unavailabl Joan Paez Primary Care Unavailable Oleghe OLS, Efewongbe Attending Unavailabl e Joan Hughes Primary Care Unavailable Oleghe OLS, Efewongbe Attending Unavailabl e Joan Hughes Primary Care Unavailable Joan Hughes Primary Care Unavailable Oleghe OLS, Efewongbe Referring Unavailabl e Oleghe OLS, Efewongbe Attending Unavailabl e Joan Hughes Primary Care Unavailable Oleghe OLS, Efewongbe Attending Unavailabl e Oleghe OLS, Efewongbe Attending Unavailabl e [place], Joan Primary Care Unavailable Oleghe OLS, Efewongbe Attending Unavailabl e Oleghe OLS, Efewongbe Referring Unavailabl e [place], Joan Primary Care Unavailable [place], Joan Primary Care Unavailable Oleghe [...] Unavailable Oleghe OLS, Efewongbe Attending Unavailabl e Oleghe, Efewongbe Attending Unavailable [place], Joan Primary Care Unavailable Oleghe OLS, Efewongbe Referring Unavailabl e Oleghe OLS, Efewongbe Attending Unavailabl e [place], Joan Primary Care Unavailable Oleghe OLS, Efewongbe Attending Unavailabl e [place], Joan Primary Care Unavailable [place], Joan Primary Care Unavailable Oleghe OLS, Efewongbe Attending Unavailabl e Oleghe OLS, Efewongbe Attending Unavailabl e [place], Joan Primary Care Unavailable Oleghe OLS, Efewongbe Attending Unavailabl e [place], Joan Primary Care Unavailable [place], Joan Primary Care Unavailable [place] 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, Britney Attending Unavailable Oleghe OLS, Efewongbe Attending Unavailabl e [place], Joan Primary Care Unavailable [place], Joan Primary Care Unavailable [place] 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, Britney Attending Unavailable [place] 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, Britney Attending Unavailable [place], Joan Primary Care Unavailable [place] 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, Britney Attending Unavailable [place], Joan Primary Care Unavailable Oleghe, Efewongbe Attending Unavailable [place], Joan Primary Care Unavailable [place] 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, Britney Attending Unavailable [place], Joan Primary Care Unavailable [place], Joan Primary Care Unavailable [place] 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, Britney Attending Unavailable [place], Joan Primary Care Unavailable Oleghe, Efewongbe Attending Unavailable [place] 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, Britney Attending Unavailable [place], Joan Primary Care Unavailable [place], Joan Primary Care Unavailable Oleghe, Efewongbe Attending Unavailable [place], Joan Primary Care Unavailable [place] 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, Britney Attending Unavailable [place], Joan Primary Care Unavailable [place] 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, Britney Attending Unavailable [place], Joan Primary Care Unavailable Oleghe, Efewongbe Attending Unavailable [place], Joan Primary Care Unavailable [place] 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, Britney Attending Unavailable [place] 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, Britney Attending Unavailable [place], Joan Primary Care Unavailable Oleghe OLS, Efewongbe [facility] Unavailable Allergies Allergy Classification Reported Allergen(s) Allergy Type Date of Onset Reaction(s) Facility Aspirin / Caffeine / Orphenadrine (11 sources) Aspirin / Caffeine / Orphenadrine Drug Allergy 5 [facility] NSAIDs (20 sources) Ibuprofen Drug Allergy 5 Swelling, Hives, Itching [facility] Penicillins (antibiotic) (11 sources) Penicillins Drug Allergy 5 [facility] Sulfonamides (antibiotic) (11 sources) Sulfonamides (Antibiotic) Drug Allergy 6 [facility] Tetracyclines (antibiotic) (11 sources) Tetracycline Drug Allergy 5 [facility] (20 sources) aspirin / caffeine / orphenadrine; Translations: [ORPHENADRINE- A-CAFFEINE] Propensity to adverse reactions to drug 5 [facility] Work Phone: (20 sources) ibuprofen; Translations: [IBUPROFEN] Propensity to adverse reactions to drug 8 Swelling [facility] Work Phone: (20 sources) naproxen; Translations: [NAPROXEN SODIUM] Propensity to adverse reactions to drug 5 Hives, Itching, Swelling [facility] Work Phone: (20 sources) Penicillins; Translations: [PENICILLINS] Propensity to adverse reactions to drug 5 Hives [facility] Work Phone: (20 sources) Sulfonamides (Antibiotic); Translations: [SULFA (SULFONAMIDE ANTIBIOTICS)] Propensity to adverse reactions to drug 6 [facility] Work Phone: (20 sources) tetracycline; Translations: [TETRACYCLINE] Propensity to adverse reactions to drug 5 [facility] Work Phone: (6 sources) Penicillins Propensity to adverse reactions to drug 5 [facility] (8 sources) Sulfonamides (Antibiotic) Propensity to adverse reactions to drug 6 [facility] (20 sources) Naproxen Drug Allergy 1 Rash [facility] (20 sources) tiZANidine Drug Allergy 9 Other: See Comments [facility] (2 sources) Penicillins Propensity to adverse reactions 5 [facility] (1 source) Naproxen Drug Allergy 1 [facility] Rep[facility] (1 source) Penicillins Drug allergy (disorder) 1 [facility] (1 source) Sulfonamides (Antibiotic) Drug allergy (disorder) 1 [facility] Rep[facility] (1 source) tiZANidine Drug Allergy 1 [facility] Repository Medications Current Medications Medication Drug Class(es) Dates Sig (Normalized) [facility] [id number] (Pf) 60 McG/0.5 Ml Intramuscular Syringe (9 [...] mg PO DAILY July 03, 2018 1:00am heart Comment on above: Take 1 tablet by niall th once daily. cholecalciferol 0.25 mg oral capsule [...] Start: 01-23-2018 take 1 tablet by niall th twice daily dalfampridine 10 mg Tb12 Take [...] 25 mg 25 mg, Oral, Once, [place] 05/04/17 at 0900, For 1 [...] 0.9% (NS) 25 mL/hr, Intravenous, Continuous, Starting [facility] 05/04/17 at 0930 Rate/Dose Verify 05/04/2017 11:00 EST 25 mL/hr 25 mL/hr Start: 04-13-2017 End: 04-13-2017 take 25 mL intravenous route every hour sodium chloride 0.9% (NS) 25 mL/hr, Intravenous, Continuous, Starting [facility] 04/13/17 at 1215 Rate/Dose Verify 04/13/2017 12:15 [...] progressive multiple sclerosis; Translations: [Multiple sclerosis] Onset: 01-19-2017 05-14-2017 Chronic Nutritional deficiencies (13 sources) Vitamin D [...] cystitis; Translations: [Acute cystitis without hematuria] Onset: 01-02-2025 Episodic Viral infection (20 sources) Disease caused [...] Test Name Value Interpretation Reference Range Facility Absolute lymphocyte countOrd ered By: Breanne Ruiz on 12-16-2024 Lymphocytes Auto (Unsp spec) [#/Vol] 0.91 10*3/uL 0.83-4.51 [facility] Absolute neutrophil countOrd ered By: Breanne Ruiz on 12-16-2024 Neutrophils (Bld) [#/Vol] 10.6 10*3/uL High 2.0-7.7 [facility] Anion gap in Serum or Plasma Ordered By: Breanne Kikrlandmichaelbeverly on 12-16-2024 Anion gap [Moles/Vol] 15 mmol/L 5-15 [facility] Automated lymphocyte count a s percentage of total leukocytesOrdered By: Breanne Ruiz on 12-16-2024 Lymphocytes/100 WBC Auto (Unsp spec) 6.6 % Low 19-41 [facility] BUN/creatinine ratioOrdered By: [facility] Kirklandmichaelbeverly on 12-16-2024 Urea nitrogen/Creatinine [Mass ratio] 27.6 mg/mg High 10-20 [facility] Basophil percentageOrdered B y: Abbielalitachetan Kirklandmichaelbeverly on 12-16-2024 Basophils/100 WBC (Bld) 0.7 % 0-1 [facility] Carbon dioxide, total [Moles /volume] in Central venous bloodOrdered By: Breanne Ruiz on 12-16-2024 CO2 [Moles/Vol] 16.7 mmol/L Low 21.0-32.0 [facility] Chloride assayOrdered By: adalbertochetan Ruiz on 12-16-2024 Chloride [Moles/Vol] 105 mmol/L 98-108 [facility] Eosinophil percentageOrdered By: [facility] Kirklandmichaelbeverly on 12-16-2024 Eosinophils/100 WBC (Bld) 1.2 % 0-5 [facility] Erythrocyte distribution wid th ratioOrdered By: Breanne Ruiz on 12-16-2024 Erythrocyte distribution width (RBC) [Ratio] 16.9 % High 11.6-14.6 [facility] Erythrocyte distribution wid th standard deviationOrdered By: adalbertobellflowerchetan Kirklandmichaelbeverly on 12-16-2024 Erythrocyte distribution width (RBC) [Ratio] 50.9 fl High 35.1-43.9 [facility] Glomerular filtration rate ( GFR) estimation/1.73 sq m using serum, plasma, or whole bOrdered By: Breanne Ruiz on 12-16-2024 GFR/1.73 sq M.predicted among non-blacks MDRD (S/P/Bld) [Vol rate/Area] 60 mL/min/{1.73_m2} >60 [facility] Comment on above: mL/min/1.73m2 CKD-EP I Creatinine Equation (2020) Hematocrit Auto (Bld) [Volum e fraction]Ordered By: Breanne Ruiz on 12-16-2024 Hematocrit (Bld) [Volume fraction] 42.8 % 37-47 [facility] Hemoglobin measurementOrdere d By: Breanne Ruiz on 12-16-2024 Hemoglobin (Bld) [Mass/Vol] 12.5 g/dL 12.0-15.0 [facility] Immature granulocytes/100 WB C Auto (Bld)Ordered By: Abbiebellflowerchetan Ruiz on 12-16-2024 Immature granulocytes/100 WBC (Bld) 1.000 % High 0.0-0.9 [facility] Comment on above: IG% - Immature Granu locytes (promyelocytes, myelocytes and metamyelocytes) > 1% indicates that a LEFT SHIFT is Present. MCV (mean corpuscular volume ) determinationOrdered By: Breanne Ruiz on 12-16-2024 MCV (RBC) [Entitic vol] 83.6 fL 81-99 [facility] Mean corpuscular hemoglobin (MCH) determinationOrdered By: Breanne Ruiz on 12-16-2024 MCH (RBC) [Entitic mass] 24.4 pg Low 27.0-32.0 [facility] Mean corpuscular hemoglobin concentration (MCHC) determinationOrdered By: Breanne Ruiz on 12-16-2024 MCHC (RBC) [Mass/Vol] 29.2 g/dL Low 32-36 [facility] Mean platelet volume determi nationOrdered By: vannessa Ruiz on 12-16-2024 Platelet mean volume (Bld) [Entitic vol] 8.5 fL 6.2-12.0 [facility] Monocyte percentageOrdered B y: Breanne Ruiz on 12-16-2024 Monocytes/100 WBC (Bld) 13.7 % High 0-10 [facility] Neutrophil percentageOrdered By: Breanne Ruiz on 12-16-2024 Neutrophils/100 WBC (Bld) 76.8 % High 47-70 [facility] Nucleated red blood cell per centageOrdered By: Elioadalbertotracy Isaelhussain on 12-16-2024 Nucleated RBC/100 WBC (Bld) [Ratio] 0 % 0-5 [facility] Platelet countOrdered By: Elio vannessa Isaelmichaelbeverly on 12-16-2024 Platelets (Bld) [#/Vol] 520 10*3/uL High 150-450 [facility] Platelet estimateOrdered By: Breanne Kirklandmichaelbeverly on 12-16-2024 Platelets LM Ql (Bld) MOD INC ADEQ [facility] Potassium measurement (mass/ volume)Ordered By: Breanne Ruiz on 12-16-2024 Potassium (Unsp spec) [Mass/Vol] 4.3 mmol/L 3.3-5.1 [facility] RBC Auto (Bld) [#/Vol]Ordere d By: Abbietracy Isaelmichaelbeverly on 12-16-2024 RBC (Bld) [#/Vol] 5.12 10*6/uL 4.2-5.4 [facility] Serum creatinine measurement (mass/volume)Ordered By: Breanne Kirklandmichaelbeverly on 12-16-2024 Creatinine [Mass/Vol] 1.03 mg/dL 0.70-1.20 [facility] Serum glucose measurement (m ass/volume)Ordered By: Breanne Kirklandmichaelbeverly on 12-16-2024 Glucose [Mass/Vol] 133 mg/dL High 70-99 [facility] Serum or plasma calcium jj urement (mass/volume)Ordered By: Breanne Kirklandmcihaelbeverly on 12-16-2024 Calcium [Mass/Vol] 10.1 mg/dL 7.6-11.0 [facility] Serum or plasma urea nitroge n measurement (mass/volume)Ordered By: Breanne Kirklandmichaelbeverly on 12-16-2024 Urea nitrogen [Mass/Vol] 28 mg/dL High 4-19 [facility] Sodium levelOrdered By: Abbie tracy Sara on 12-16-2024 Sodium [Moles/Vol] 136 mmol/L 133-145 [facility] White blood cell (WBC) count Ordered By: Breanne Ruiz on 12-16-2024 WBC (Bld) [#/Vol] 13.8 10*3/uL High 4.4-11.0 [facility] Bilirubin Test strip Ql (U)O rdered By: Breanne Ruiz on 12-13-2024 Bilirubin Ql (U) Negative Negative [facility] Ketones Test strip Ql (U)Ord ered By: Breanne Ruiz on 12-13-2024 Ketones Ql (U) Negative Negative [facility] Microscopic analysis of urin e for red blood cells (RBC)Ordered By: Breanne Ruiz on 12-13-2024 Microscopic analysis of urine for red blood cells (RBC) 50-100 SEEN /hpf 0-5 [facility] Mucus LM Ql (Urine sed)Order ed By: Breanne Ruiz on 12-13-2024 Mucus Ql (Urine sed) 0 SEEN /hpf [facility] Nitrite Test strip Ql (U)Ord ered By: Breanne Ruiz on 12-13-2024 Nitrite Ql (U) Negative Negative [facility] Protein Test strip Ql (U)Ord ered By: Breanne Ruiz on 12-13-2024 Protein Ql (U) 500 mg/dl High Negative [facility] Squamous epithelial cells de tection in urine sediment by light microscopyOrdered By: Breanne Ruiz on 12-13-2024 Epithelial cells.squamous LM Ql (Urine sed) 0-5 SEEN /hpf 5-10 [facility] Urine clarityOrdered By: Prashant Ruiz on 12-13-2024 Clarity (U) Turbid Clear [facility] Urine color determinationOrd ered By: Breanne Ruiz on 12-13-2024 Color (U) Sunita Yellow [facility] Urine cultureOrdered By: Prashant Ruiz on 12-13-2024 Bacteria identified Cx Nom (U) Staphylococcus aureus Abnormal [facility] Bacteria identified Cx Nom (U) Positive Abnormal [facility] Urine glucose detectionOrder ed By: Breanne Ruiz on 12-13-2024 Glucose Ql (U) Normal mg/dl Normal [facility] Urine leukocyte esterase det ection by dipstickOrdered By: Breanne Ruiz on 12-13-2024 Leukocyte esterase Test strip Ql (U) 500 /ul High Negative [facility] Urine pHOrdered By: Bhupendra Ruiz on 12-13-2024 pH (U) 6.0 [pH] 5.0 - 8.0 [facility] Urine sediment bacteria coun t by microscopy (number/high power field)Ordered By: Breanne Ruiz on 12-13-2024 Bacteria LM.HPF (Urine sed) [#/Area] 3 /[HPF] None Seen [facility] Urine specific gravity measu rementOrdered By: Breanne Ruiz on 12-13-2024 Specific gravity (U) [Rel density] 1.020 1.002-1.030 [facility] Urine urobilinogen measureme ntOrdered By: Breanne Ruiz on 12-13-2024 Urobilinogen Ql (U) Normal mg/dl Normal [facility] White blood cell countOrdere d By: Breanne Ruiz on 12-13-2024 White blood cell count >100 SEEN /hpf 0-5 [facility] Comment on above: Microscopic field is filled. Other elements may be obscured. Hemoglobin A1c percentageOrd ered By: Breanne Ruiz on 12-04-2024 HbA1c (Bld) [Mass fraction] 6.9 % High <5.7 [facility] Comment on above: Normal < 5.7 % Predi abetic 5.7 - 6.4 % Diabetic >or= 6.5 % Please note range changes. Bilirubin Test strip Ql (U)O rdered By: Breanne Ruiz on 11-15-2024 Bilirubin Ql (U) Negative Negative [facility] Ketones Test strip Ql (U)Ord ered By: Breanne Ruiz on 11-15-2024 Ketones Ql (U) Negative Negative [facility] Nitrite Test strip Ql (U)Ord ered By: Breanne Ruiz on 11-15-2024 Nitrite Ql (U) Negative Negative [facility] Protein Test strip Ql (U)Ord ered By: Breanne Ruiz on 11-15-2024 Protein Ql (U) 500 mg/dl High Negative [facility] Urine clarityOrdered By: Prashant Ruiz on 11-15-2024 Clarity (U) Turbid Clear [facility] Urine color determinationOrd ered By: Breanne Ruiz on 11-15-2024 Color (U) Yellow Yellow [facility] Urine cultureOrdered By: Prashant Ruiz on 11-15-2024 Bacteria identified Cx Nom (U) Proteus mirabilis Abnormal [facility] Urine glucose detectionOrder ed By: Breanne Ruiz on 11-15-2024 Glucose Ql (U) Normal mg/dl Normal [facility] Urine leukocyte esterase det ection by dipstickOrdered By: Breanne Ruiz on 11-15-2024 Leukocyte esterase Test strip Ql (U) 500 /ul High Negative [facility] Urine pHOrdered By: Bhupendra Ruiz on 11-15-2024 pH (U) 6.0 [pH] 5.0 - 8.0 [facility] Urine specific gravity measu rementOrdered By: Breanne Ruiz on 11-15-2024 Specific gravity (U) [Rel density] 1.020 1.002-1.030 [facility] Urine urobilinogen measureme ntOrdered By: Breanne Ruiz on 11-15-2024 Urobilinogen Ql (U) Normal mg/dl Normal [facility] Anion gap in Serum or Plasma Ordered By: Breanne Ruiz on 11-07-2024 Anion gap [Moles/Vol] 14 mmol/L 5-15 [facility] BUN/creatinine ratioOrdered By: Breanne Ruiz on 11-07-2024 Urea nitrogen/Creatinine [Mass ratio] 31.2 mg/mg High 10- [facility] Carbon dioxide, total [Moles /volume] in Central venous bloodOrdered By: Breanne Ruiz on 11-07-2024 CO2 [Moles/Vol] 20.8 mmol/L Low 21.0-32.0 [facility] Chloride assayOrdered By: Elio Ruiz on 11-07-2024 Chloride [Moles/Vol] 102 mmol/L 98-108 [facility] Glomerular filtration rate ( GFR) estimation/1.73 sq m using serum, plasma, or whole bOrdered By: Abbielalitachetan Kirklandmichaelbeverly on 11-07-2024 GFR/1.73 sq M.predicted among non-blacks MDRD (S/P/Bld) [Vol rate/Area] 41 mL/min/{1.73_m2} Low >60 [facility] Comment on above: mL/min/1.73m2 CKD-EP I Creatinine Equation (2020) Potassium measurement (mass/ volume)Ordered By: Breanne Ruiz on 11-07-2024 Potassium (Unsp spec) [Mass/Vol] 3.9 mmol/L 3.3-5.1 [facility] Serum creatinine measurement (mass/volume)Ordered By: Breanne Ruiz on 11-07-2024 Creatinine [Mass/Vol] 1.41 mg/dL High 0.70-1.20 [facility] Serum glucose measurement (m ass/volume)Ordered By: Breanne Ruiz on 11-07-2024 Glucose [Mass/Vol] 151 mg/dL High 70-99 [facility] Serum or plasma calcium jj urement (mass/volume)Ordered By: Breanne Ruiz on 11-07-2024 Calcium [Mass/Vol] 9.8 mg/dL 7.6-11.0 [facility] Serum or plasma urea nitroge n measurement (mass/volume)Ordered By: Breanne Ruiz on 11-07-2024 Urea nitrogen [Mass/Vol] 44 mg/dL High 4-19 [facility] Sodium levelOrdered By: Abbie tracy Isaelmichaelbeverly on 11-07-2024 Sodium [Moles/Vol] 138 mmol/L 133-145 [facility] Absolute lymphocyte countOrd ered By: Britney Worthington on 11-05-2024 Lymphocytes Auto (Unsp spec) [#/Vol] 0.88 10*3/uL 0.83-4.51 [facility] Absolute neutrophil countOrd ered By: Britney Worthington on 11-05-2024 Neutrophils (Bld) [#/Vol] 8.0 10*3/uL High 2.0-7.7 [facility] Anion gap in Serum or Plasma Ordered By: Britney Worthington on 11-05-2024 Anion gap [Moles/Vol] 15 mmol/L 5-15 [facility] Automated lymphocyte count a s percentage of total leukocytesOrdered By: Britney Worthington on 11-05-2024 Lymphocytes/100 WBC Auto (Unsp spec) 8.1 % Low 19-41 [facility] BUN/creatinine ratioOrdered By: Britney Worthington on 11-05-2024 Urea nitrogen/Creatinine [Mass ratio] 29.5 mg/mg High 10-20 [facility] Basophil percentageOrdered B y: Britney Worthington on 11-05-2024 Basophils/100 WBC (Bld) 1.1 % High 0-1 [facility] Bilirubin, totalOrdered By: Britney Worthington on 11-05-2024 Bilirubin [Mass/Vol] 0.21 mg/dL 0.00-1.30 [facility] Carbon dioxide, total [Moles /volume] in Central venous bloodOrdered By: Britney Worthington on 11-05-2024 CO2 [Moles/Vol] 18.5 mmol/L Low 21.0-32.0 [facility] Chloride assayOrdered By: Lawrence Worthington on 11-05-2024 Chloride [Moles/Vol] 103 mmol/L 98-108 [facility] Eosinophil percentageOrdered By: Britney Worthington on 11-05-2024 Eosinophils/100 WBC (Bld) 2.7 % 0-5 [facility] Erythrocyte distribution wid th ratioOrdered By: Britney Worthington on 11-05-2024 Erythrocyte distribution width (RBC) [Ratio] 16.5 % High 11.6-14.6 [facility] Erythrocyte distribution wid th standard deviationOrdered By: Britney Worthington on 11-05-2024 Erythrocyte distribution width (RBC) [Ratio] 49.0 fl High 35.1-43.9 [facility] Glomerular filtration rate ( GFR) estimation/1.73 sq m using serum, plasma, or whole bOrdered By: Britney Worthington on 11-05-2024 GFR/1.73 sq M.predicted among non-blacks MDRD (S/P/Bld) [Vol rate/Area] 46 mL/min/{1.73_m2} Low >60 [facility] Comment on above: mL/min/1.73m2 CKD-EP I Creatinine Equation (2020) Hematocrit Auto (Bld) [Volum e fraction]Ordered By: Britney Worthington on 11-05-2024 Hematocrit (Bld) [Volume fraction] 38.8 % 37-47 [facility] Hemoglobin measurementOrdere d By: Britney Worthington on 11-05-2024 Hemoglobin (Bld) [Mass/Vol] 11.7 g/dL Low 12.0-15.0 [facility] Immature granulocytes/100 WB C Auto (Bld)Ordered By: Britney Worthington on 11-05-2024 Immature granulocytes/100 WBC (Bld) 2.100 % High 0.0-0.9 [facility] Comment on above: IG% - Immature Granu locytes (promyelocytes, myelocytes and metamyelocytes) > 1% indicates that a LEFT SHIFT is Present. Laboratory - Chemistry and C hemistry - challengeOrdered By: Britney Worthington on 11-05-2024 AST [Catalytic activity/Vol] 23 U/L <32 [facility] MCV (mean corpuscular volume ) determinationOrdered By: Britney Worthington on 11-05-2024 MCV (RBC) [Entitic vol] 81.2 fL 81-99 [facility] Mean corpuscular hemoglobin (MCH) determinationOrdered By: Britney Worthington on 11-05-2024 MCH (RBC) [Entitic mass] 24.5 pg Low 27.0-32.0 [facility] Mean corpuscular hemoglobin concentration (MCHC) determinationOrdered By: Britney Worthington on 11-05-2024 MCHC (RBC) [Mass/Vol] 30.2 g/dL Low 32-36 [facility] Mean platelet volume determi nationOrdered By: Britney Worthington on 11-05-2024 Platelet mean volume (Bld) [Entitic vol] 9.1 fL 6.2-12.0 [facility] Monocyte percentageOrdered B y: Britney Worthington on 11-05-2024 Monocytes/100 WBC (Bld) 12.5 % High 0-10 [facility] Neutrophil percentageOrdered By: Britney Worthington on 11-05-2024 Neutrophils/100 WBC (Bld) 73.5 % High 47-70 [facility] Nucleated red blood cell per centageOrdered By: Britney Worthington on 11-05-2024 Nucleated RBC/100 WBC (Bld) [Ratio] 0 % 0-5 [facility] Platelet countOrdered By: Lawrence Worthington on 11-05-2024 Platelets (Bld) [#/Vol] 488 10*3/uL High 150-450 [facility] Potassium measurement (mass/ volume)Ordered By: Britney Worthington on 11-05-2024 Potassium (Unsp spec) [Mass/Vol] 4.3 mmol/L 3.3-5.1 [facility] RBC Auto (Bld) [#/Vol]Ordere d By: Britney Worthington on 11-05-2024 RBC (Bld) [#/Vol] 4.78 10*6/uL 4.2-5.4 [facility] Serum creatinine measurement (mass/volume)Ordered By: Britney Worthington on 11-05-2024 Creatinine [Mass/Vol] 1.28 mg/dL High 0.70-1.20 [facility] Serum globulin measurementOr dered By: Britney Worthington on 11-05-2024 Globulin (S) [Mass/Vol] 3.8 g/dL 2.2-4.2 [facility] Serum glucose measurement (m ass/volume)Ordered By: Britney Worthington on 11-05-2024 Glucose [Mass/Vol] 189 mg/dL High 70-99 [facility] Serum or plasma alanine juárez otransferase (ALT) measurementOrdered By: Britney Worthington on 11-05-2024 ALT [Catalytic activity/Vol] 45 U/L High <35 [facility] Serum or plasma albumin jj urement (mass/volume)Ordered By: Britney Worthington on 11-05-2024 Albumin [Mass/Vol] 3.3 g/dL Low 3.4-4.8 [facility] Serum or plasma albumin/glob ulin mass ratioOrdered By: Britney Worthington on 11-05-2024 Albumin/Globulin [Mass ratio] 0.9 {ratio} 0.9-2.4 [facility] Serum or plasma alkaline sofi sphatase measurementOrdered By: Britney Worthington on 11-05-2024 ALP [Catalytic activity/Vol] 95 U/L 35-104 [facility] Serum or plasma calcium jj urement (mass/volume)Ordered By: Britney Worthington on 11-05-2024 Calcium [Mass/Vol] 9.8 mg/dL 7.6-11.0 [facility] Serum or plasma urea nitroge n measurement (mass/volume)Ordered By: Britney Worthington on 11-05-2024 Urea nitrogen [Mass/Vol] 38 mg/dL High 4-19 [facility] Sodium levelOrdered By: Nancy Worthington on 11-05-2024 Sodium [Moles/Vol] 136 mmol/L 133-145 [facility] Total proteinOrdered By: Phillip Worthington on 11-05-2024 Protein [Mass/Vol] 7.1 g/dL 5.9-8.4 [facility] White blood cell (WBC) count Ordered By: Britney Worthington on 11-05-2024 WBC (Bld) [#/Vol] 10.9 10*3/uL 4.4-11.0 [facility] Gram stainOrdered By: Ana Lilia Worthington on 10-11-2024 Microscopic observation Gram stain Nom (Unsp spec) [facility] Calculated very low density lipoprotein (VLDL) cholesterol measurementOrdered By: Breanne Ruiz on 10-08-2024 Calculated very low density lipoprotein (VLDL) cholesterol measurement 52 mg/dL High 5-40 [facility] LDL calc ser/plasOrdered By: Breanne Ruiz on 10-08-2024 Cholesterol in LDL [Mass/Vol] 44 mg/dL [facility] Comment on above: Uxatwaklpz=815-441 m g/dL & Higher Klnj=020 mg/dL or greater Screening total cholesterol/ high density lipoprotein (HDL) cholesterol ratioOrdered By: Breanne Ruiz on 10-08-2024 Cholesterol.total/Cholest dipak in HDL [Mass ratio] 4.16 {ratio} [facility] Serum or plasma cholesterol in HDL measurement (mass/volume)Ordered By: Breanne Ruiz on 10-08-2024 Cholesterol in HDL [Mass/Vol] 30 mg/dL Low >40 [facility] Comment on above: National Cholesterol Education Program (NCEP) guidelines:<40 mg/dL: Low HDL-cholesterol (major risk factor for CHD)>= 60 mg/dL: High HDL-cholesterol (negative risk factor for CHD)HDL-cholesterol is affected by a number of factors, e.g. smoking, exercise, hormones, sex and age. Serum or plasma cholesterol measurement (mass/volume)Ordered By: Breanne Ruiz on 10-08-2024 Cholesterol [Mass/Vol] 126 mg/dL <201 [facility] Comment on above: Cholesterol level, D esirable <200 mg/dLBorderline high cholesterol 200-239 mg/dLHigh cholesterol >=240 mg/dLRecommendations of the NCEP Adult Treatment Panel for the following risk-cutoff thresholds for the [place] population. Triglycerides measurementOrd ered By: Breanne Ruiz on 10-08-2024 Triglyceride [Mass/Vol] 261 mg/dL High <199 [facility] Comment on above: The drugs N-Acetylcy steine and Metamizole may falsely depress this assay. Normal range: <150 mg/dLBorderline High: 150-199 mg/dLHigh: 200-499 mg/dLVery High: >500 mg/dL Anion gap in Serum or Plasma Ordered By: Breanne Ruiz on 09-04-2024 Anion gap [Moles/Vol] 15 mmol/L 5-15 [facility] BUN/creatinine ratioOrdered By: Breanne Ruiz on 09-04-2024 Urea nitrogen/Creatinine [Mass ratio] 30.0 mg/mg High 10-20 [facility] Carbon dioxide, total [Moles /volume] in Central venous bloodOrdered By: Breanne Ruiz on 09-04-2024 CO2 [Moles/Vol] 20.5 mmol/L Low 21.0-32.0 [facility] Chloride assayOrdered By: Elio Ruiz on 09-04-2024 Chloride [Moles/Vol] 102 mmol/L 98-108 [facility] GFR/1.73 sq M.predicted cinda g non-blacks MDRD (S/P/Bld) [Vol rate/Area]Ordered By: Breanne Ruiz on 09-04-2024 Estimated GFR (MDRD) Non-Af Amer 68 >60 [facility] Comment on above: mL/min/1.73m2 CKD-EP I Creatinine Equation (2020) Glomerular filtration rate ( GFR) estimation/1.73 sq m using serum, plasma, or whole bOrdered By: Breanne Ruiz on 09-04-2024 GFR/1.73 sq M.predicted among non-blacks MDRD (S/P/Bld) [Vol rate/Area] 68 mL/min/{1.73_m2} >60 [facility] Comment on above: mL/min/1.73m2 CKD-EP I Creatinine Equation (2020) Potassium (Unsp spec) [Mass/ Vol]Ordered By: Breanne Ruiz on 09-04-2024 Potassium [Moles/Vol] 4.1 mmol/L 3.3-5.1 [facility] Comment on above: Hemolysis present, R esults could be affected. Potassium measurement (mass/ volume)Ordered By: Breanne Ruiz on 09-04-2024 Potassium (Unsp spec) [Mass/Vol] 4.1 mmol/L 3.3-5.1 [facility] Comment on above: Hemolysis present, R esults could be affected. Serum creatinine measurement (mass/volume)Ordered By: Breanne Ruiz on 09-04-2024 Creatinine [Mass/Vol] 0.93 mg/dL 0.70-1.20 [facility] Serum glucose measurement (m ass/volume)Ordered By: Breanne Ruiz on 09-04-2024 Glucose [Mass/Vol] 137 mg/dL High 70-99 [facility] Serum or plasma calcium jj urement (mass/volume)Ordered By: Breanne Ruiz on 09-04-2024 Calcium [Mass/Vol] 10.3 mg/dL 7.6-11.0 [facility] Serum or plasma urea nitroge n measurement (mass/volume)Ordered By: Breanne Ruiz on 09-04-2024 Urea nitrogen [Mass/Vol] 28 mg/dL High 4-19 [facility] Sodium levelOrdered By: Abbie tracy Isaelmichaelbeverly on 09-04-2024 Sodium [Moles/Vol] 137 mmol/L 133-145 [facility] Hemoglobin A1c percentageOrd ered By: Breanne Ruiz on 09-03-2024 HbA1c (Bld) [Mass fraction] 7.9 % >5.7 [facility] Genital cultureOrdered By: Beverly borischetan Ruiz on 08-19-2024 Genital Culture Staphylococcus aureus Abnormal [facility] Gram stainOrdered By: Abbiegordy camarillo Isaelmichaelbeverly on 08-19-2024 Microscopic observation Gram stain Nom (Unsp spec) [facility] Absolute lymphocyte countOrd ered By: Breanne Ruiz on 08-06-2024 Lymphocytes Auto (Unsp spec) [#/Vol] 1.08 10*3/uL 0.83-4.51 [facility] Absolute neutrophil countOrd ered By: Breanne Ruiz on 08-06-2024 Neutrophils (Bld) [#/Vol] 7.0 10*3/uL 2.0-7.7 [facility] Anion gap in Serum or Plasma Ordered By: Breanne Ruiz on 08-06-2024 Anion gap [Moles/Vol] 13 mmol/L 5-15 [facility] Automated lymphocyte count a s percentage of total leukocytesOrdered By: Breanne Ruiz on 08-06-2024 Lymphocytes/100 WBC Auto (Unsp spec) 11.0 % Low 19-41 [facility] BUN/creatinine ratioOrdered By: Breanne Ruiz on 08-06-2024 Urea nitrogen/Creatinine [Mass ratio] 27.6 mg/mg High 10-20 [facility] Basophil percentageOrdered B y: Breanne Ruiz on 08-06-2024 Basophils/100 WBC (Bld) 0.7 % 0-1 [facility] Bilirubin, totalOrdered By: Breanne Ruiz on 08-06-2024 Bilirubin [Mass/Vol] 0.21 mg/dL 0.00-1.30 [facility] Carbon dioxide, total [Moles /volume] in Central venous bloodOrdered By: Breanne Ruiz on 08-06-2024 CO2 [Moles/Vol] 22.7 mmol/L 21.0-32.0 [facility] Chloride assayOrdered By: Elio Ruiz on 08-06-2024 Chloride [Moles/Vol] 101 mmol/L 98-108 [facility] Eosinophil percentageOrdered By: Breanne Ruiz 08-06-2024 Eosinophils/100 WBC (Bld) 3.8 % 0-5 [facility] Erythrocyte distribution wid th (RBC) [Ratio]Ordered By: Breanne Ruiz on 08-06-2024 Erythrocyte distribution width (RBC) [Entitic vol] 46.3 fL High 35.1-43.9 [facility] Erythrocyte distribution wid th ratioOrdered By: Breanne Ruiz on 08-06-2024 Erythrocyte distribution width (RBC) [Ratio] 15.6 % High 11.6-14.6 [facility] Erythrocyte distribution wid th standard deviationOrdered By: Breanne Ruiz on 08-06-2024 Erythrocyte distribution width (RBC) [Ratio] 46.3 fl High 35.1-43.9 [facility] GFR/1.73 sq M.predicted cinda g non-blacks MDRD (S/P/Bld) [Vol rate/Area]Ordered By: Breanne Ruiz on 08-06-2024 Estimated GFR (MDRD) Non-Af Amer 66 >60 [facility] Comment on above: mL/min/1.73m2 CKD-EP I Creatinine Equation (2020) Glomerular filtration rate ( GFR) estimation/1.73 sq m using serum, plasma, or whole bOrdered By: Breanne Ruiz on 08-06-2024 GFR/1.73 sq M.predicted among non-blacks MDRD (S/P/Bld) [Vol rate/Area] 66 mL/min/{1.73_m2} >60 [facility] Comment on above: mL/min/1.73m2 CKD-EP I Creatinine Equation (2020) Hematocrit Auto (Bld) [Volum e fraction]Ordered By: Breanne Ruiz on 08-06-2024 Hematocrit (Bld) [Volume fraction] 41.6 % 37-47 [facility] Hemoglobin measurementOrdere d By: Breanne Ruiz on 08-06-2024 Hemoglobin (Bld) [Mass/Vol] 12.5 g/dL 12.0-15.0 [facility] Immature granulocytes/100 WB C Auto (Bld)Ordered By: Breanne Ruiz on 08-06-2024 Immature granulocytes/100 WBC (Bld) 1.000 % High 0.0-0.9 [facility] Comment on above: IG% - Immature Granu locytes (promyelocytes, myelocytes and metamyelocytes) > 1% indicates that a LEFT SHIFT is Present. Laboratory - Chemistry and C hemistry - challengeOrdered By: Breanne Ruiz on 08-06-2024 AST [Catalytic activity/Vol] 16 U/L <32 [facility] Lymphocytes Auto (Unsp spec) [#/Vol]Ordered By: Breanne Ruiz on 08-06-2024 Lymphocytes (Bld) [#/Vol] 1.08 10*3/uL 0.83-4.5 1 [facility] Lymphocytes/100 WBC Auto (Un sp spec)Ordered By: Breanne Ruiz on 08-06-2024 Lymphocytes/100 WBC (Bld) 11.0 % Low 19-41 [facility] MCV (mean corpuscular volume ) determinationOrdered By: Breanne Ruiz on 08-06-2024 MCV (RBC) [Entitic vol] 80.9 fL Low 81-99 [facility] Mean corpuscular hemoglobin (MCH) determinationOrdered By: Breanne Ruiz on 08-06-2024 MCH (RBC) [Entitic mass] 24.3 pg Low 27.0-32.0 [facility] Mean corpuscular hemoglobin concentration (MCHC) determinationOrdered By: Breanne Ruiz on 08-06-2024 MCHC (RBC) [Mass/Vol] 30.0 g/dL Low 32-36 [facility] Mean platelet volume determi nationOrdered By: Breanne Ruiz on 08-06-2024 Platelet mean volume (Bld) [Entitic vol] 8.8 fL 6.2-12.0 [facility] Monocyte percentageOrdered B y: Breanne Ruiz on 08-06-2024 Monocytes/100 WBC (Bld) 12.5 % High 0-10 [facility] Neutrophil percentageOrdered By: Breanne Ruiz on 08-06-2024 Neutrophils/100 WBC (Bld) 71.0 % High 47-70 [facility] Nucleated red blood cell per centageOrdered By: Breanne Ruiz on 08-06-2024 Nucleated RBC/100 WBC (Bld) [Ratio] 0 % 0-5 [facility] Platelet countOrdered By: Elio Ruiz on 08-06-2024 Platelets (Bld) [#/Vol] 452 10*3/uL High 150-450 [facility] Potassium (Unsp spec) [Mass/ Vol]Ordered By: Breanne Ruiz on 08-06-2024 Potassium [Moles/Vol] 3.9 mmol/L 3.3-5.1 [facility] Potassium measurement (mass/ volume)Ordered By: Breanne Ruiz on 08-06-2024 Potassium (Unsp spec) [Mass/Vol] 3.9 mmol/L 3.3-5.1 [facility] RBC Auto (Bld) [#/Vol]Ordere d By: Breanne Ruiz on 08-06-2024 RBC (Bld) [#/Vol] 5.14 10*6/uL 4.2-5.4 [facility] Serum creatinine measurement (mass/volume)Ordered By: Breanne Ruiz on 08-06-2024 Creatinine [Mass/Vol] 0.96 mg/dL 0.70-1.20 [facility] Serum globulin measurementOr dered By: Breanne Ruiz on 08-06-2024 Globulin (S) [Mass/Vol] 3.8 g/dL 2.2-4.2 [facility] Serum glucose measurement (m ass/volume)Ordered By: Breanne Ruiz on 08-06-2024 Glucose [Mass/Vol] 188 mg/dL High 70-99 [facility] Serum or plasma alanine juárez otransferase (ALT) measurementOrdered By: Breanne Ruiz on 08-06-2024 ALT [Catalytic activity/Vol] 10 U/L <35 [facility] Serum or plasma albumin jj urement (mass/volume)Ordered By: Breanne Ruiz on 08-06-2024 Albumin [Mass/Vol] 3.3 g/dL Low 3.4-4.8 [facility] Serum or plasma albumin/glob ulin mass ratioOrdered By: Breanne Ruiz on 08-06-2024 Albumin/Globulin [Mass ratio] 0.9 {ratio} 0.9-2.4 [facility] Serum or plasma alkaline sofi sphatase measurementOrdered By: Breanne Ruiz on 08-06-2024 ALP [Catalytic activity/Vol] 80 U/L 35-104 [facility] Serum or plasma calcium jj urement (mass/volume)Ordered By: Breanne Ruiz on 08-06-2024 Calcium [Mass/Vol] 10.1 mg/dL 7.6-11.0 [facility] Serum or plasma urea nitroge n measurement (mass/volume)Ordered By: Breanne Ruiz on 08-06-2024 Urea nitrogen [Mass/Vol] 26 mg/dL High 4-19 [facility] Sodium levelOrdered By: Abbie kaminskirabia Sara on 08-06-2024 Sodium [Moles/Vol] 137 mmol/L 133-145 [facility] Total proteinOrdered By: Prashant Ruiz on 08-06-2024 Protein [Mass/Vol] 7.1 g/dL 5.9-8.4 [facility] White blood cell (WBC) count Ordered By: Breanne Ruzi on 08-06-2024 WBC (Bld) [#/Vol] 9.8 10*3/uL 4.4-11.0 [facility] Bilirubin Test strip Ql (U)O rdered By: Breanne Ruiz on 08-05-2024 Bilirubin Ql (U) Negative Negative [facility] Epithelial cells.squamous LM Ql (Urine sed)Ordered By: Breanne Ruiz on 08-05-2024 Epithelial cells.squamous LM.HPF (Urine sed) [#/Area] 0 /[HPF] 5-10 [facility] Glucose Ql (U)Ordered By: Elio Ruiz on 08-05-2024 Glucose (U) [Mass/Vol] 50 mg/dL High Normal [facility] Ketones Test strip Ql (U)Ord ered By: Brenane Ruiz on 08-05-2024 Ketones Ql (U) Negative Negative [facility] Microscopic analysis of urin e for red blood cells (RBC)Ordered By: Breanne Ruiz on 08-05-2024 Microscopic analysis of urine for red blood cells (RBC) 0-5 SEEN /hpf 0-5 [facility] Urine RBC 0-5 SEEN /hpf 0-5 [facility] Mucus LM Ql (Urine sed)Order ed By: Breanne Ruiz on 08-05-2024 Mucus Ql (Urine sed) 0 SEEN /hpf [facility] Nitrite Test strip Ql (U)Ord ered By: Breanne Ruiz on 08-05-2024 Nitrite Ql (U) Negative Negative [facility] Protein Test strip Ql (U)Ord ered By: Breanne Ruiz on 08-05-2024 Protein Ql (U) 500 mg/dl High Negative [facility] Squamous epithelial cells de tection in urine sediment by light microscopyOrdered By: Breanne Ruiz on 08-05-2024 Epithelial cells.squamous LM Ql (Urine sed) 0-5 SEEN /hpf 5-10 [facility] Urine blood detectionOrdered By: Breanne Ruiz on 08-05-2024 Urine Occult Blood 250 /ul High Negative [facility] Urine clarityOrdered By: Prashant Ruiz on 08-05-2024 Clarity (U) Turbid Clear [facility] Urine color determinationOrd ered By: Breanne Ruiz on 08-05-2024 Color (U) Straw Yellow [facility] Urine cultureOrdered By: Prashant Ruiz on 08-05-2024 Bacteria identified Cx Nom (U) Alpha Hemolytic Streptococcus Abnormal [facility] Bacteria identified Cx Nom (U) Klebsiella pneumoniae sp pneum Abnormal [facility] Urine glucose detectionOrder ed By: Breanne Ruiz on 08-05-2024 Glucose Ql (U) 50 mg/dl High Normal [facility] Urine leukocyte esterase det ection by dipstickOrdered By: Breanne Ruiz on 08-05-2024 Leukocyte esterase Test strip Ql (U) 500 /ul High Negative [facility] Urine pHOrdered By: Bhupendra Ruiz on 08-05-2024 pH (U) 6.0 [pH] 5.0 - 8.0 [facility] Urine sediment bacteria coun t by microscopy (number/high power field)Ordered By: Breanne Ruiz on 08-05-2024 Bacteria LM.HPF (Urine sed) [#/Area] 3 /[HPF] None Seen [facility] Urine specific gravity measu rementOrdered By: Breanne Ruiz on 08-05-2024 Specific gravity (U) [Rel density] 1.020 1.002-1.030 [facility] Urine urobilinogen measureme ntOrdered By: Breanne Ruiz on 08-05-2024 Urobilinogen Ql (U) Normal mg/dl Normal [facility] Urobilinogen Ql (U)Ordered B y: Breanne Ruiz on 08-05-2024 Urine Urobilinogen Normal mg/dl Normal [facility] White blood cell countOrdere d By: Breanne Ruiz on 08-05-2024 Urine WBC >100 SEEN /hpf 0-5 [facility] White blood cell count >100 SEEN /hpf 0-5 [facility] High density lipoprotein (HD L) measurementOrdered By: Breanne Ruiz on 07-09-2024 Cholesterol in HDL [Mass/Vol] 38 mg/dL Low >40 [facility] Comment on above: The drugs N-Acetylcy steine and Metamizole may falsely depress this assay. Reference Range HDL <40 mg/dL Low HDL Cholesterol HDL >or= 60 mg/dL High HDL Cholesterol Low density lipoprotein (LDL ) cholesterol measurementOrdered By: Breanne Ruiz on 07-09-2024 Cholesterol in LDL [Mass/Vol] 41 mg/dL 0-130 [facility] Serum or plasma cholesterol measurement (mass/volume)Ordered By: Breanne Ruiz on 07-09-2024 Cholesterol [Mass/Vol] 143 mg/dL <200 [facility] Comment on above: <200 mg/dL Desirable 200-240 mg/dL Borderline >240 mg/dL High Risk Triglycerides measurementOrd ered By: Breanne Ruiz on 07-09-2024 Triglyceride [Mass/Vol] 321 mg/dL High <199 [facility] Comment on above: The drugs N-Acetylcy steine and Metamizole may falsely depress this assay.Serum Triglycerides Reference Interval Normal <150 mg/dL Borderline high 150 - 199 mg/dL High 200 - 499 mg/dL Very High > or = 500 mg/dL Very low density lipoprotein (VLDL) cholesterol measurementOrdered By: Breanne Ruiz on 07-09-2024 VLDL Cholesterol 64 mg/dL High 5-40 [facility] Hemoglobin A1c percentageOrd ered By: Breanne Ruiz on 06-11-2024 HbA1c (Bld) [Mass fraction] 7.2 % High 3.8-5.6 [facility] Comment on above: Normal < 5.7 % Predi abetic 5.7 - 6.4 % Diabetic >or= 6.5 % Please note range changes. Whole blood hemoglobin A1c/t otal hemoglobin ratio (mass fraction)Ordered By: Breanne Ruiz on 09-05-2023 HbA1c (Bld) [Mass fraction] 6.7 % 3.8-5.6 [facility] Comment on above: Normal < 5.7 % Predi abetic 5.7 - 6.4 % Diabetic >or= 6.5 % Please note range changes. Basophil percentageOrdered B y: Breanne Ruiz on 08-10-2023 Potassium [Moles/Vol] 4.0 mmol/L 3.5-5.1 [facility] Comment on above: Slight Hemolysis, Re sult may be falsely increased. Absolute lymphocyte countOrd ered By: Breanne Ruiz on 08-08-2023 Lymphocytes Auto (Unsp spec) [#/Vol] 1.44 10*3/uL 0.83-4.51 [facility] Automated lymphocyte count a s percentage of total leukocytesOrdered By: Breanne Ruiz on 08-08-2023 Lymphocytes/100 WBC Auto (Unsp spec) 12.7 % 19-41 [facility] Basophil percentageOrdered B y: Eliokathrynchetan Sara on 08-08-2023 Basophils/100 WBC (Bld) 1.1 % 0-1 [facility] Bilirubin [Mass/Vol] 0.30 mg/dL 0.20-1.00 [facility] Comment on above: For patients on eltr ombopag therapy, use of Dimension [place] TBIL is not recommended. Chloride [Moles/Vol] 107 mmol/L 98-107 [facility] Eosinophils/100 WBC (Bld) 3.1 % 0-5 [facility] Glucose [Mass/Vol] 153 mg/dL 74-106 [facility] Comment on above: Fasting Glucose resu lt greater than or equal to 126 mg/dL suggests DIABETES MELLITUS per A.D.A. criteria. Hemoglobin (Bld) [Mass/Vol] 14.3 g/dL 12.0-15.0 [facility] Monocytes/100 WBC (Bld) 10.4 % 0-10 [facility] Neutrophils (Bld) [#/Vol] 8.1 10*3/uL 2.0-7.7 [facility] Neutrophils/100 WBC (Bld) 71.8 % 47-70 [facility] Potassium [Moles/Vol] 3.4 mmol/L 3.5-5.1 [facility] Protein [Mass/Vol] 6.9 g/dL 6.4-8.2 [facility] Sodium [Moles/Vol] 141 mmol/L 136-145 [facility] WBC (Bld) [#/Vol] 11.3 10*3/uL 4.4-11.0 [facility] Determination of erythrocyte mean corpuscular volume (MCV)Ordered By: Breanne Ruiz on 08-08-2023 MCV (RBC) [Entitic vol] 88.6 fL 81-99 [facility] Erythrocyte distribution wid th ratioOrdered By: Breanne Ruiz on 08-08-2023 Erythrocyte distribution width (RBC) [Ratio] 14.8 % 11.6-14.6 [facility] Erythrocyte distribution wid th standard deviationOrdered By: Breanne Ruiz on 08-08-2023 Erythrocyte distribution width (RBC) [Entitic vol] 47.9 fL 35.1-43.9 [facility] Hematocrit Auto (Bld) [Volum e fraction]Ordered By: Breanne Ruiz on 08-08-2023 Hematocrit (Bld) [Volume fraction] 46.7 % 37-47 [facility] Immature granulocytes/100 WB C Auto (Bld)Ordered By: Breanne Ruiz on 08-08-2023 Immature granulocytes/100 WBC (Bld) 0.900 % 0.0-0.9 [facility] Comment on above: IG% - Immature Granu locytes (promyelocytes, myelocytes and metamyelocytes) > 1% indicates that a LEFT SHIFT is Present. Laboratory - Chemistry and C hemistry - challengeOrdered By: adalbertobellflowerchetan Ruiz on 08-08-2023 Albumin/Globulin [Mass ratio] 0.9 {ratio} 0.9-2.4 [facility] ALP [Catalytic activity/Vol] 93 U/L 45-117 [facility] ALT [Catalytic activity/Vol] 36 U/L 13-56 [facility] CO2 [Moles/Vol] 26.0 mmol/L 21.0-32.0 [facility] Globulin (S) [Mass/Vol] 3.7 g/dL 2.2-4.2 [facility] Urea nitrogen/Creatinine [Mass ratio] 28.0 mg/mg 10-20 [facility] Laboratory - Hematology and Cell countsOrdered By: Breanne Ruiz on 08-08-2023 MCH (RBC) [Entitic mass] 27.1 pg 27.0-32.0 [facility] MCHC (RBC) [Mass/Vol] 30.6 g/dL 32-36 [facility] Nucleated RBC/100 WBC (Bld) [Ratio] 0 % 0-5 [facility] Platelet mean volume (Bld) [Entitic vol] 9.3 fL 6.2-12.0 [facility] Platelets (Bld) [#/Vol] 535 10*3/uL 150-450 [facility] No Panel InformationOrdered By: Breanne Ruiz on 08-08-2023 Estimated GFR (MDRD) Amer 105 mL/min >60 [facility] Comment on above: GFR Calc Estimated GFR (MDRD) Non-Af Amer 87 mL/min >60 [facility] Comment on above: Non- GFR Calc RBC Auto (Bld) [#/Vol]Ordere d By: Breanne Ruiz on 08-08-2023 RBC (Bld) [#/Vol] 5.27 10*6/uL 4.2-5.4 [facility] Serum or plasma calcium jj urement (mass/volume)Ordered By: Breanne Ruiz on 08-08-2023 Calcium [Mass/Vol] 10.0 mg/dL 8.5-10.1 [facility] Serum or plasma creatinine m easurement (mass/volume)Ordered By: Breanne Ruiz on 08-08-2023 Creatinine [Mass/Vol] 0.71 mg/dL 0.55-1.02 [facility] Comment on above: The validity of the calculated GFR & GFRAA in patients over 70 years has not been determined. Clinical correlation is essential. Serum or plasma urea nitroge n measurement (mass/volume)Ordered By: Breanne Ruiz on 08-08-2023 Urea nitrogen [Mass/Vol] 20 mg/dL 7-18 [facility] Thin prep Papanicolaou smear with manual screeningOrdered By: Breanne Ruiz on 08-08-2023 Thin prep Papanicolaou smear with manual screening 3.2 g/dL 3.2-5.0 [facility] Thin prep Papanicolaou smear with manual screening 31 U/L 15-37 [facility] Thin prep Papanicolaou smear with manual screening 8 5-15 [facility] Basophil percentageOrdered B y: Breanne Ruiz on 07-17-2023 Chloride [Moles/Vol] 109 mmol/L 98-107 [facility] Glucose [Mass/Vol] 150 mg/dL 74-106 [facility] Comment on above: Fasting Glucose resu lt greater than or equal to 126 mg/dL suggests DIABETES MELLITUS per A.D.A. criteria. Potassium [Moles/Vol] 3.8 mmol/L 3.5-5.1 [facility] Sodium [Moles/Vol] 143 mmol/L 136-145 [facility] Laboratory - Chemistry and C hemistry - challengeOrdered By: Breanne Ruiz on 07-17-2023 CO2 [Moles/Vol] 24.0 mmol/L 21.0-32.0 [facility] Urea nitrogen/Creatinine [Mass ratio] 31.3 mg/mg 10-20 [facility] No Panel InformationOrdered By: Breanne Ruiz on 07-17-2023 Estimated GFR (MDRD) Amer 114 mL/min >60 [facility] Comment on above: GFR Calc Estimated GFR (MDRD) Non-Af Amer 94 mL/min >60 [facility] Comment on above: Non- GFR Calc Serum or plasma calcium jj urement (mass/volume)Ordered By: Breanne Ruiz on 07-17-2023 Calcium [Mass/Vol] 9.6 mg/dL 8.5-10.1 [facility] Serum or plasma creatinine m easurement (mass/volume)Ordered By: Breanne Ruiz on 07-17-2023 Creatinine [Mass/Vol] 0.67 mg/dL 0.55-1.02 [facility] Comment on above: The validity of the calculated GFR & GFRAA in patients over 70 years has not been determined. Clinical correlation is essential. Serum or plasma urea nitroge n measurement (mass/volume)Ordered By: Breanne Ruiz on 07-17-2023 Urea nitrogen [Mass/Vol] 21 mg/dL 7-18 [facility] Thin prep Papanicolaou smear with manual screeningOrdered By: Breanne Ruiz on 07-17-2023 Thin prep Papanicolaou smear with manual screening 10 5-15 [facility] Basophil percentageOrdered B y: Breanne Ruiz on 07-03-2023 Chloride [Moles/Vol] 109 mmol/L 98-107 [facility] Glucose [Mass/Vol] 156 mg/dL 74-106 [facility] Comment on above: Fasting Glucose resu lt greater than or equal to 126 mg/dL suggests DIABETES MELLITUS per A.D.A. criteria. Potassium [Moles/Vol] 3.5 mmol/L 3.5-5.1 [facility] Comment on above: Slight Hemolysis, Re sult may be falsely increased. Sodium [Moles/Vol] 141 mmol/L 136-145 [facility] Laboratory - Chemistry and C hemistry - challengeOrdered By: Breanne Ruiz on 07-03-2023 CO2 [Moles/Vol] 25.0 mmol/L 21.0-32.0 [facility] Urea nitrogen/Creatinine [Mass ratio] 29.4 mg/mg 10-20 [facility] No Panel InformationOrdered By: Breanne Ruiz on 07-03-2023 Estimated GFR (MDRD) Amer 111 mL/min >60 [facility] Comment on above: GFR Calc Estimated GFR (MDRD) Non-Af Amer 92 mL/min >60 [facility] Comment on above: Non- GFR Calc Serum or plasma calcium jj urement (mass/volume)Ordered By: Breanne Ruiz on 07-03-2023 Calcium [Mass/Vol] 9.8 mg/dL 8.5-10.1 [facility] Serum or plasma creatinine m easurement (mass/volume)Ordered By: Breanne Ruiz on 07-03-2023 Creatinine [Mass/Vol] 0.68 mg/dL 0.55-1.02 [facility] Comment on above: The validity of the calculated GFR & GFRAA in patients over 70 years has not been determined. Clinical correlation is essential. Serum or plasma urea nitroge n measurement (mass/volume)Ordered By: Breanne Ruiz on 07-03-2023 Urea nitrogen [Mass/Vol] 20 mg/dL 7-18 [facility] Thin prep Papanicolaou smear with manual screeningOrdered By: Breanne Ruiz on 07-03-2023 Thin prep Papanicolaou smear with manual screening 7 5-15 [facility] Whole blood hemoglobin A1c/t otal hemoglobin ratio (mass fraction)Ordered By: Breanne Ruiz on 06-06-2023 HbA1c (Bld) [Mass fraction] 7.5 % 3.8-5.6 [facility] Comment on above: Normal < 5.7 % Predi abetic 5.7 - 6.4 % Diabetic >or= 6.5 % Please note range changes. Absolute lymphocyte countOrd ered By: Breanne Ruiz on 05-09-2023 Lymphocytes Auto (Unsp spec) [#/Vol] 1.09 10*3/uL 0.83-4.51 [facility] Basophil percentageOrdered B y: Breanne Ruiz on 05-09-2023 Basophils/100 WBC (Bld) 1.2 % 0-1 [facility] Bilirubin [Mass/Vol] 0.30 mg/dL 0.20-1.00 [facility] Comment on above: For patients on eltr ombopag therapy, use of Dimension [place] TBIL is not recommended. Chloride [Moles/Vol] 107 mmol/L 98-107 [facility] Eosinophils/100 WBC (Bld) 2.8 % 0-5 [facility] Glucose [Mass/Vol] 203 mg/dL 74-106 [facility] Comment on above: Glucose result great er than or equal to 200 mg/dLsuggests DIABETES MELLITUS per A.D.A. criteria. Neutrophils (Bld) [#/Vol] 5.5 10*3/uL 2.0-7.7 [facility] Neutrophils/100 WBC (Bld) 68.1 % 47-70 [facility] Potassium [Moles/Vol] 4.0 mmol/L 3.5-5.1 [facility] Protein [Mass/Vol] 7.0 g/dL 6.4-8.2 [facility] Sodium [Moles/Vol] 140 mmol/L 136-145 [facility] WBC (Bld) [#/Vol] 8.1 10*3/uL 4.4-11.0 [facility] Blood erythrocytes count (nu mber/volume)Ordered By: Breanne Ruiz on 05-09-2023 RBC (Bld) [#/Vol] 5.62 10*6/uL 4.2-5.4 [facility] Blood hemoglobin measurement (mass/volume)Ordered By: Breanne Ruiz on 05-09-2023 Hemoglobin (Bld) [Mass/Vol] 14.7 g/dL 12.0-15.0 [facility] Blood lymphocytes/100 leukoc ytesOrdered By: Breanne Ruiz on 05-09-2023 Lymphocytes/100 WBC (Bld) 13.4 % 19-41 [facility] Blood monocytes/100 leukocyt esOrdered By: vannessa Ruiz on 05-09-2023 Monocytes/100 WBC (Bld) 13.8 % 0-10 [facility] Blood platelet mean volumeOr dered By: Breanne Ruiz on 05-09-2023 Platelet mean volume (Bld) [Entitic vol] 9.6 fL 6.2-12.0 [facility] Determination of erythrocyte mean corpuscular volume (MCV)Ordered By: Breanne Ruiz on 05-09-2023 MCV (RBC) [Entitic vol] 88.1 fL 81-99 [facility] Hematocrit Auto (Bld) [Volum e fraction]Ordered By: Breanne Ruiz on 05-09-2023 Hematocrit (Bld) [Volume fraction] 49.5 % 37-47 [facility] Laboratory - Chemistry and C hemistry - challengeOrdered By: vannessa Ruiz on 05-09-2023 ALP [Catalytic activity/Vol] 111 U/L 45-117 [facility] ALT [Catalytic activity/Vol] 57 U/L 13-56 [facility] CO2 [Moles/Vol] 25.0 mmol/L 21.0-32.0 [facility] Globulin (S) [Mass/Vol] 3.7 g/dL 2.2-4.2 [facility] Urea nitrogen/Creatinine [Mass ratio] 38.0 mg/mg 10-20 [facility] Laboratory - Hematology and Cell countsOrdered By: Breanne Ruiz on 05-09-2023 Erythrocyte distribution width (RBC) [Entitic vol] 49.4 fL 35.1-43.9 [facility] Erythrocyte distribution width (RBC) [Ratio] 15.6 % 11.6-14.6 [facility] Immature granulocytes/100 WBC (Bld) 0.700 % 0.0-0.9 [facility] Comment on above: IG% - Immature Granu locytes (promyelocytes, myelocytes and metamyelocytes) > 1% indicates that a LEFT SHIFT is Present. MCH (RBC) [Entitic mass] 26.2 pg 27.0-32.0 [facility] Nucleated RBC/100 WBC (Bld) [Ratio] 0 % 0-5 [facility] MCHC Auto (RBC) [Mass/Vol]Or dered By: Breanne Ruiz on 05-09-2023 MCHC (RBC) [Mass/Vol] 29.7 g/dL 32-36 [facility] No Panel InformationOrdered By: Breanne Ruiz on 05-09-2023 Estimated GFR (MDRD) Amer 111 mL/min >60 [facility] Comment on above: GFR Calc Estimated GFR (MDRD) Non-Af Amer 92 mL/min >60 [facility] Comment on above: Non- GFR Calc Platelets bldOrdered By: Prashant Ruiz on 05-09-2023 Platelets (Bld) [#/Vol] 553 10*3/uL 150-450 [facility] Serum or plasma albumin jj urement (mass/volume)Ordered By: Breanne Ruiz on 05-09-2023 Albumin [Mass/Vol] 3.3 g/dL 3.2-5.0 [facility] Serum or plasma albumin/glob ulin mass ratioOrdered By: Breanne Ruiz on 05-09-2023 Albumin/Globulin [Mass ratio] 0.9 {ratio} 0.9-2.4 [facility] Serum or plasma calcium jj urement (mass/volume)Ordered By: Breanne Ruiz on 05-09-2023 Calcium [Mass/Vol] 9.6 mg/dL 8.5-10.1 [facility] Serum or plasma creatinine m easurement (mass/volume)Ordered By: Breanne Ruiz on 05-09-2023 Creatinine [Mass/Vol] 0.68 mg/dL 0.55-1.02 [facility] Comment on above: The validity of the calculated GFR & GFRAA in patients over 70 years has not been determined. Clinical correlation is essential. Serum or plasma urea nitroge n measurement (mass/volume)Ordered By: Breanne Ruiz on 05-09-2023 Urea nitrogen [Mass/Vol] 26 mg/dL 7-18 [facility] Thin prep Papanicolaou smear with manual screeningOrdered By: Breanne Ruiz on 05-09-2023 Thin prep Papanicolaou smear with manual screening 37 U/L 15-37 [facility] Thin prep Papanicolaou smear with manual screening 8 5-15 [facility] Clostridium difficile detect ion by polymerase chain reactionOrdered By: Breanne Ruiz on 02-23-2023 C. difficile DNA MAGALIE+probe Ql (Unsp spec) [facility] Clostridium difficile detect ion by polymerase chain reactionOrdered By: Breanne Ruiz on 02-22-2023 C. difficile DNA MAGALIE+probe Ql (Unsp spec) [facility] Absolute lymphocyte countOrd ered By: Britney Worthington on 02-21-2023 Lymphocytes Auto (Unsp spec) [#/Vol] 0.97 10*3/uL 0.83-4.51 [facility] Basophil percentageOrdered B y: Britney Worthington on 02-21-2023 Basophils/100 WBC (Bld) 1.2 % 0-1 [facility] Chloride [Moles/Vol] 108 mmol/L 98-107 [facility] Eosinophils/100 WBC (Bld) 4.4 % 0-5 [facility] Glucose [Mass/Vol] 178 mg/dL 74-106 [facility] Comment on above: Fasting Glucose resu lt greater than or equal to 126 mg/dL suggests DIABETES MELLITUS per A.D.A. criteria. Neutrophils (Bld) [#/Vol] 8.1 10*3/uL 2.0-7.7 [facility] Neutrophils/100 WBC (Bld) 74.9 % 47-70 [facility] Potassium [Moles/Vol] 3.7 mmol/L 3.5-5.1 [facility] Sodium [Moles/Vol] 140 mmol/L 136-145 [facility] WBC (Bld) [#/Vol] 10.8 10*3/uL 4.4-11.0 [facility] Blood erythrocytes count (nu mber/volume)Ordered By: Britney Worthington on 02-21-2023 RBC (Bld) [#/Vol] 5.06 10*6/uL 4.2-5.4 [facility] Blood hemoglobin measurement (mass/volume)Ordered By: Britney Worthington on 02-21-2023 Hemoglobin (Bld) [Mass/Vol] 13.3 g/dL 12.0-15.0 [facility] Blood lymphocytes/100 leukoc ytesOrdered By: Britney Worthington on 02-21-2023 Lymphocytes/100 WBC (Bld) 9.0 % 19-41 [facility] Blood monocytes/100 leukocyt esOrdered By: Britney Worthington on 02-21-2023 Monocytes/100 WBC (Bld) 9.8 % 0-10 [facility] Blood platelet mean volumeOr dered By: Britney Worthington on 02-21-2023 Platelet mean volume (Bld) [Entitic vol] 9.2 fL 6.2-12.0 [facility] Determination of erythrocyte mean corpuscular volume (MCV)Ordered By: Britney Worthington on 02-21-2023 MCV (RBC) [Entitic vol] 89.5 fL 81-99 [facility] Hematocrit Auto (Bld) [Volum e fraction]Ordered By: Britney Worthington on 02-21-2023 Hematocrit (Bld) [Volume fraction] 45.3 % 37-47 [facility] Laboratory - Chemistry and C hemistry - challengeOrdered By: Britney Worthington on 02-21-2023 CO2 [Moles/Vol] 24.0 mmol/L 21.0-32.0 [facility] Urea nitrogen/Creatinine [Mass ratio] 37.7 mg/mg 10-20 [facility] Laboratory - Hematology and Cell countsOrdered By: Britney Worthington on 02-21-2023 Erythrocyte distribution width (RBC) [Entitic vol] 47.6 fL 35.1-43.9 [facility] Erythrocyte distribution width (RBC) [Ratio] 14.5 % 11.6-14.6 [facility] Immature granulocytes/100 WBC (Bld) 0.700 % 0.0-0.9 [facility] Comment on above: IG% - Immature Granu locytes (promyelocytes, myelocytes and metamyelocytes) > 1% indicates that a LEFT SHIFT is Present. MCH (RBC) [Entitic mass] 26.3 pg 27.0-32.0 [facility] Nucleated RBC/100 WBC (Bld) [Ratio] 0 % 0-5 [facility] MCHC Auto (RBC) [Mass/Vol]Or dered By: Britney Worthington on 02-21-2023 MCHC (RBC) [Mass/Vol] 29.4 g/dL 32-36 [facility] No Panel InformationOrdered By: Britney Worthington on 02-21-2023 Estimated GFR (MDRD) Amer 105 mL/min >60 [facility] Comment on above: GFR Calc Estimated GFR (MDRD) Non-Af Amer 87 mL/min >60 [facility] Comment on above: Non- GFR Calc Platelets bldOrdered By: Phillip Worthington on 02-21-2023 Platelets (Bld) [#/Vol] 500 10*3/uL 150-450 [facility] Serum or plasma calcium jj urement (mass/volume)Ordered By: Britney Worthington on 02-21-2023 Calcium [Mass/Vol] 9.1 mg/dL 8.5-10.1 [facility] Serum or plasma creatinine m easurement (mass/volume)Ordered By: Britney Worthington on 02-21-2023 Creatinine [Mass/Vol] 0.72 mg/dL 0.55-1.02 [facility] Comment on above: The validity of the calculated GFR & GFRAA in patients over 70 years has not been determined. Clinical correlation is essential. Serum or plasma urea nitroge n measurement (mass/volume)Ordered By: Britney Worthington on 02-21-2023 Urea nitrogen [Mass/Vol] 27 mg/dL 7-18 [facility] Thin prep Papanicolaou smear with manual screeningOrdered By: Britney Worthington on 02-21-2023 Thin prep Papanicolaou smear with manual screening 8 5-15 [facility] Bilirubin Test strip Ql (U)O rdered By: Breanne Ruiz on 02-13-2023 Bilirubin Ql (U) Negative Negative [facility] Culture, urineOrdered By: Elio Ruiz on 02-13-2023 Bacteria identified Cx Nom (U) Escherichia coli [facility] Ketones Test strip Ql (U)Ord ered By: Breanne Ruiz on 02-13-2023 Ketones Ql (U) 5 mg/dl Negative [facility] Nitrite Test strip Ql (U)Ord ered By: Breanne Ruiz on 02-13-2023 Nitrite Ql (U) Positive Negative [facility] Protein Test strip Ql (U)Ord ered By: Breanne Ruiz on 02-13-2023 Protein Ql (U) 30 mg/dl Negative [facility] Urine blood detectionOrdered By: Breanne Ruiz on 02-13-2023 RBC Ql (U) 250 /ul Negative [facility] Urine clarityOrdered By: Prashant Ruiz on 02-13-2023 Clarity (U) Cloudy Clear [facility] Urine color determinationOrd ered By: Breanne Ruiz on 02-13-2023 Color (U) Brown Yellow [facility] Urine glucose detectionOrder ed By: Breanne Ruiz on 02-13-2023 Glucose Ql (U) Normal mg/dl Normal [facility] Urine leukocyte esterase det ection by dipstickOrdered By: Breanne Ruiz on 02-13-2023 Leukocyte esterase Test strip Ql (U) 25 /ul Negative [facility] Urine pHOrdered By: Bhupendra Ruiz on 02-13-2023 pH (U) 5.0 [pH] 5.0 - 8.0 [facility] Urine specific gravity measu rementOrdered By: Breanne Ruiz on 02-13-2023 Specific gravity (U) [Rel density] 1.025 1.002-1.030 [facility] Urobilinogen Auto test strip Ql (U)Ordered By: Breanne Ruiz on 02-13-2023 Urobilinogen Ql (U) 1 mg/dl Normal [facility] Absolute lymphocyte countOrd ered By: Breanne Ruiz on 02-07-2023 Lymphocytes Auto (Unsp spec) [#/Vol] 0.94 10*3/uL 0.83-4.51 [facility] Basophil percentageOrdered B y: Breanne Ruiz on 02-07-2023 Basophils/100 WBC (Bld) 1.1 % 0-1 [facility] Chloride [Moles/Vol] 110 mmol/L 98-107 [facility] Eosinophils/100 WBC (Bld) 5.5 % 0-5 [facility] Glucose [Mass/Vol] 160 mg/dL 74-106 [facility] Comment on above: Fasting Glucose resu lt greater than or equal to 126 mg/dL suggests DIABETES MELLITUS per A.D.A. criteria. Neutrophils (Bld) [#/Vol] 6.3 10*3/uL 2.0-7.7 [facility] Neutrophils/100 WBC (Bld) 70.8 % 47-70 [facility] Potassium [Moles/Vol] 3.9 mmol/L 3.5-5.1 [facility] Sodium [Moles/Vol] 141 mmol/L 136-145 [facility] WBC (Bld) [#/Vol] 9.0 10*3/uL 4.4-11.0 [facility] Blood erythrocytes count (nu mber/volume)Ordered By: Breanne Ruiz on 02-07-2023 RBC (Bld) [#/Vol] 4.98 10*6/uL 4.2-5.4 [facility] Blood hemoglobin measurement (mass/volume)Ordered By: Breanne Ruiz on 02-07-2023 Hemoglobin (Bld) [Mass/Vol] 13.3 g/dL 12.0-15.0 [facility] Blood lymphocytes/100 leukoc ytesOrdered By: Breanne Ruiz on 02-07-2023 Lymphocytes/100 WBC (Bld) 10.5 % 19-41 [facility] Blood monocytes/100 leukocyt esOrdered By: Breanne Ruiz on 02-07-2023 Monocytes/100 WBC (Bld) 11.1 % 0-10 [facility] Blood platelet mean volumeOr dered By: Breanne Ruiz on 02-07-2023 Platelet mean volume (Bld) [Entitic vol] 9.0 fL 6.2-12.0 [facility] Determination of erythrocyte mean corpuscular volume (MCV)Ordered By: Breanne Ruiz on 02-07-2023 MCV (RBC) [Entitic vol] 88.8 fL 81-99 [facility] Hematocrit Auto (Bld) [Volum e fraction]Ordered By: Breanne Ruiz on 02-07-2023 Hematocrit (Bld) [Volume fraction] 44.2 % 37-47 [facility] Laboratory - Chemistry and C hemistry - challengeOrdered By: Breanne Ruiz on 02-07-2023 CO2 [Moles/Vol] 24.0 mmol/L 21.0-32.0 [facility] Urea nitrogen/Creatinine [Mass ratio] 37.3 mg/mg 10-20 [facility] Laboratory - Hematology and Cell countsOrdered By: Breanne Ruiz on 02-07-2023 Erythrocyte distribution width (RBC) [Entitic vol] 47.9 fL 35.1-43.9 [facility] Erythrocyte distribution width (RBC) [Ratio] 14.6 % 11.6-14.6 [facility] Immature granulocytes/100 WBC (Bld) 1.000 % 0.0-0.9 [facility] Comment on above: IG% - Immature Granu locytes (promyelocytes, myelocytes and metamyelocytes) > 1% indicates that a LEFT SHIFT is Present. MCH (RBC) [Entitic mass] 26.7 pg 27.0-32.0 [facility] Nucleated RBC/100 WBC (Bld) [Ratio] 0 % 0-5 [facility] MCHC Auto (RBC) [Mass/Vol]Or dered By: Breanne Ruiz on 02-07-2023 MCHC (RBC) [Mass/Vol] 30.1 g/dL 32-36 [facility] No Panel InformationOrdered By: Breanne Ruiz on 02-07-2023 Estimated GFR (MDRD) Amer 132 mL/min >60 [facility] Comment on above: GFR Calc Estimated GFR (MDRD) Non-Af Amer 109 mL/min >60 [facility] Comment on above: Non- GFR Calc Platelets bldOrdered By: Prashant Ruiz on 02-07-2023 Platelets (Bld) [#/Vol] 478 10*3/uL 150-450 [facility] Serum or plasma calcium jj urement (mass/volume)Ordered By: Breanne Ruiz on 02-07-2023 Calcium [Mass/Vol] 8.9 mg/dL 8.5-10.1 [facility] Serum or plasma creatinine m easurement (mass/volume)Ordered By: Breanne Ruiz on 02-07-2023 Creatinine [Mass/Vol] 0.59 mg/dL 0.55-1.02 [facility] Comment on above: The validity of the calculated GFR & GFRAA in patients over 70 years has not been determined. Clinical correlation is essential. Serum or plasma urea nitroge n measurement (mass/volume)Ordered By: Breanne Ruiz on 02-07-2023 Urea nitrogen [Mass/Vol] 22 mg/dL 7-18 [facility] Thin prep Papanicolaou smear with manual screeningOrdered By: [facility]23 Thin prep Papanicolaou smear with manual screening 7 5-15 [facility] Absolute lymphocyte countOrd ered By: Britney Worthington on 01-24-2023 Lymphocytes Auto (Unsp spec) [#/Vol] 0.89 10*3/uL 0.83-4.51 [facility] Basophil percentageOrdered B y: Britney Worthington on 01-24-2023 Basophils/100 WBC (Bld) 1.1 % 0-1 [facility] Chloride [Moles/Vol] 108 mmol/L 98-107 [facility] Eosinophils/100 WBC (Bld) 5.0 % 0-5 [facility] Glucose [Mass/Vol] 141 mg/dL 74-106 [facility] Comment on above: Fasting Glucose resu lt greater than or equal to 126 mg/dL suggests DIABETES MELLITUS per A.D.A. criteria. Neutrophils (Bld) [#/Vol] 5.9 10*3/uL 2.0-7.7 [facility] Neutrophils/100 WBC (Bld) 71.4 % 47-70 [facility] Potassium [Moles/Vol] 3.9 mmol/L 3.5-5.1 [facility] Sodium [Moles/Vol] 140 mmol/L 136-145 [facility] WBC (Bld) [#/Vol] 8.2 10*3/uL 4.4-11.0 [facility] Blood erythrocytes count (nu mber/volume)Ordered By: Britney Worthington on 01-24-2023 RBC (Bld) [#/Vol] 4.81 10*6/uL 4.2-5.4 [facility] Blood hemoglobin measurement (mass/volume)Ordered By: Britney Worthington on 01-24-2023 Hemoglobin (Bld) [Mass/Vol] 12.8 g/dL 12.0-15.0 [facility] Blood lymphocytes/100 leukoc ytesOrdered By: Britney Worhtington on 01-24-2023 Lymphocytes/100 WBC (Bld) 10.9 % 19-41 [facility] Blood monocytes/100 leukocyt esOrdered By: Britney Worthington on 01-24-2023 Monocytes/100 WBC (Bld) 11.0 % 0-10 [facility] Blood platelet mean volumeOr dered By: Britney Worthington on 01-24-2023 Platelet mean volume (Bld) [Entitic vol] 9.0 fL 6.2-12.0 [facility] Determination of erythrocyte mean corpuscular volume (MCV)Ordered By: Britney Worthington on 01-24-2023 MCV (RBC) [Entitic vol] 88.8 fL 81-99 [facility] Hematocrit Auto (Bld) [Volum e fraction]Ordered By: Britney Worthington on 01-24-2023 Hematocrit (Bld) [Volume fraction] 42.7 % 37-47 [facility] Laboratory - Chemistry and C hemistry - challengeOrdered By: Britney Worthington on 01-24-2023 CO2 [Moles/Vol] 25.0 mmol/L 21.0-32.0 [facility] Urea nitrogen/Creatinine [Mass ratio] 33.7 mg/mg 10-20 [facility] Laboratory - Hematology and Cell countsOrdered By: Britney Worthington on 01-24-2023 Erythrocyte distribution width (RBC) [Entitic vol] 48.3 fL 35.1-43.9 [facility] Erythrocyte distribution width (RBC) [Ratio] 14.8 % 11.6-14.6 [facility] Immature granulocytes/100 WBC (Bld) 0.600 % 0.0-0.9 [facility] Comment on above: IG% - Immature Granu locytes (promyelocytes, myelocytes and metamyelocytes) > 1% indicates that a LEFT SHIFT is Present. MCH (RBC) [Entitic mass] 26.6 pg 27.0-32.0 [facility] Nucleated RBC/100 WBC (Bld) [Ratio] 0 % 0-5 [facility] MCHC Auto (RBC) [Mass/Vol]Or dered By: Britney Worthington on 01-24-2023 MCHC (RBC) [Mass/Vol] 30.0 g/dL 32-36 [facility] No Panel InformationOrdered By: Britney Worthington on 01-24-2023 Estimated GFR (MDRD) Amer 131 mL/min >60 [facility] [place] Comment on above: GFR Calc Estimated GFR (MDRD) Non-Af Amer 108 mL/min >60 [facility] [place] Comment on above: Non- GFR Calc Platelets bldOrdered By: Phillip Worthington on 01-24-2023 Platelets (Bld) [#/Vol] 479 10*3/uL 150-450 [facility] [place] Serum or plasma calcium jj urement (mass/volume)Ordered By: Britney Worthington on 01-24-2023 Calcium [Mass/Vol] 8.9 mg/dL 8.5-10.1 [facility] Serum or plasma creatinine m easurement (mass/volume)Ordered By: Britney Worthington on 01-24-2023 Creatinine [Mass/Vol] 0.59 mg/dL 0.55-1.02 [facility] Comment on above: The validity of the calculated GFR & GFRAA in patients over 70 years has not been determined. Clinical correlation is essential. Serum or plasma urea nitroge n measurement (mass/volume)Ordered By: Britney Worthington on 01-24-2023 Urea nitrogen [Mass/Vol] 20 mg/dL 7-18 [facility] [place] Thin prep Papanicolaou smear with manual screeningOrdered By: Britney Worthington on 01-24-2023 Thin prep Papanicolaou smear with manual screening 7 5-15 [facility] [place] Absolute lymphocyte countOrd ered By: Breanne Ruiz on 01-10-2023 Lymphocytes Auto (Unsp spec) [#/Vol] 0.84 10*3/uL 0.83-4.51 [facility] [place] Basophil percentageOrdered B y: Breanne Ruiz on 01-10-2023 Basophils/100 WBC (Bld) 1.0 % 0-1 [facility] Chloride [Moles/Vol] 109 mmol/L 98-107 [facility] Eosinophils/100 WBC (Bld) 4.6 % 0-5 [facility] [place] Glucose [Mass/Vol] 147 mg/dL 74-106 [facility] Comment on above: Fasting Glucose resu lt greater than or equal to 126 mg/dL suggests DIABETES MELLITUS per A.D.A. criteria. Neutrophils (Bld) [#/Vol] 7.2 10*3/uL 2.0-7.7 [facility] [place] Neutrophils/100 WBC (Bld) 74.5 % 47-70 [facility] [place] Potassium [Moles/Vol] 3.9 mmol/L 3.5-5.1 [facility] Sodium [Moles/Vol] 140 mmol/L 136-145 [facility] WBC (Bld) [#/Vol] 9.7 10*3/uL 4.4-11.0 [facility] Blood erythrocytes count (nu mber/volume)Ordered By: Breanne Ruiz on 01-10-2023 RBC (Bld) [#/Vol] 4.98 10*6/uL 4.2-5.4 [facility] Blood hemoglobin measurement (mass/volume)Ordered By: Breanne Ruiz on 01-10-2023 Hemoglobin (Bld) [Mass/Vol] 13.4 g/dL 12.0-15.0 [facility] [place] Blood lymphocytes/100 leukoc ytesOrdered By: Breanne Ruiz on 01-10-2023 Lymphocytes/100 WBC (Bld) 8.7 % 19-41 [facility] [place] Blood monocytes/100 leukocyt esOrdered By: Breanne Ruiz on 01-10-2023 Monocytes/100 WBC (Bld) 10.3 % 0-10 [facility] Blood platelet mean volumeOr dered By: Breanne Ruiz on 01-10-2023 Platelet mean volume (Bld) [Entitic vol] 8.8 fL 6.2-12.0 [facility] [place] Determination of erythrocyte mean corpuscular volume (MCV)Ordered By: Breanne Ruiz on 01-10-2023 MCV (RBC) [Entitic vol] 86.5 fL 81-99 [facility] Hematocrit Auto (Bld) [Volum e fraction]Ordered By: Breanne Ruiz on 01-10-2023 Hematocrit (Bld) [Volume fraction] 43.1 % 37-47 [facility] [place] Laboratory - Chemistry and C hemistry - challengeOrdered By: adalbertobellflowerchetan Ruiz on 01-10-2023 CO2 [Moles/Vol] 24.0 mmol/L 21.0-32.0 [facility] [place] Urea nitrogen/Creatinine [Mass ratio] 36.1 mg/mg 10-20 [facility] [place] Laboratory - Hematology and Cell countsOrdered By: Abbiebellflowerchetan Ruiz on 01-10-2023 Erythrocyte distribution width (RBC) [Entitic vol] 48.4 fL 35.1-43.9 [facility] Erythrocyte distribution width (RBC) [Ratio] 15.3 % 11.6-14.6 [facility] [place] Immature granulocytes/100 WBC (Bld) 0.900 % 0.0-0.9 [facility] [place] Comment on above: IG% - Immature Granu locytes (promyelocytes, myelocytes and metamyelocytes) > 1% indicates that a LEFT SHIFT is Present. MCH (RBC) [Entitic mass] 26.9 pg 27.0-32.0 [facility] [place] Nucleated RBC/100 WBC (Bld) [Ratio] 0 % 0-5 [facility] [place] MCHC Auto (RBC) [Mass/Vol]Or dered By: Breanne Ruiz on 01-10-2023 MCHC (RBC) [Mass/Vol] 31.1 g/dL 32-36 [facility] No Panel InformationOrdered By: Breanne Ruiz on 01-10-2023 Estimated GFR (MDRD) Amer 121 mL/min >60 [facility] [place] Comment on above: GFR Calc Estimated GFR (MDRD) Non-Af Amer 100 mL/min >60 [facility] [place] Comment on above: Non- GFR Calc Platelets bldOrdered By: Prashant raphaelchetan Ruiz on 01-10-2023 Platelets (Bld) [#/Vol] 513 10*3/uL 150-450 [facility] [place] Serum or plasma calcium jj urement (mass/volume)Ordered By: Breanne Ruiz on 01-10-2023 Calcium [Mass/Vol] 9.2 mg/dL 8.5-10.1 [facility] Serum or plasma creatinine m easurement (mass/volume)Ordered By: Breanne Ruiz on 01-10-2023 Creatinine [Mass/Vol] 0.64 mg/dL 0.55-1.02 [facility] Comment on above: The validity of the calculated GFR & GFRAA in patients over 70 years has not been determined. Clinical correlation is essential. Serum or plasma urea nitroge n measurement (mass/volume)Ordered By: Breanne Ruiz on 01-10-2023 Urea nitrogen [Mass/Vol] 23 mg/dL 7-18 [facility] [place] Thin prep Papanicolaou smear with manual screeningOrdered By: Breanne Ruiz on 01-10-2023 Thin prep Papanicolaou smear with manual screening 7 5-15 [facility] [place] Absolute lymphocyte countOrd ered By: Breanne Ruiz on 12-27-2022 Lymphocytes Auto (Unsp spec) [#/Vol] 0.84 10*3/uL 0.83-4.51 [facility] [place] Basophil percentageOrdered B y: Breanne Ruiz on 12-27-2022 Basophils/100 WBC (Bld) 1.3 % 0-1 [facility] Chloride [Moles/Vol] 108 mmol/L 98-107 [facility] Eosinophils/100 WBC (Bld) 4.3 % 0-5 [facility] [place] Glucose [Mass/Vol] 178 mg/dL 74-106 [facility] Comment on above: Fasting Glucose resu lt greater than or equal to 126 mg/dL suggests DIABETES MELLITUS per A.D.A. criteria. Neutrophils (Bld) [#/Vol] 6.8 10*3/uL 2.0-7.7 [facility] [place] Neutrophils/100 WBC (Bld) 73.8 % 47-70 [facility] [place] Potassium [Moles/Vol] 3.9 mmol/L 3.5-5.1 [facility] Sodium [Moles/Vol] 138 mmol/L 136-145 [facility] WBC (Bld) [#/Vol] 9.3 10*3/uL 4.4-11.0 [facility] Blood erythrocytes count (nu mber/volume)Ordered By: Breanne Ruiz on 12-27-2022 RBC (Bld) [#/Vol] 4.96 10*6/uL 4.2-5.4 [facility] Blood hemoglobin measurement (mass/volume)Ordered By: Breanne Ruiz on 12-27-2022 Hemoglobin (Bld) [Mass/Vol] 13.1 g/dL 12.0-15.0 [facility] [place] Blood lymphocytes/100 leukoc ytesOrdered By: Breanne Ruiz on 12-27-2022 Lymphocytes/100 WBC (Bld) 9.1 % 19-41 [facility] [place] Blood monocytes/100 leukocyt esOrdered By: Breanne Ruiz on 12-27-2022 Monocytes/100 WBC (Bld) 10.9 % 0-10 [facility] Blood platelet mean volumeOr dered By: Breanne Ruiz on 12-27-2022 Platelet mean volume (Bld) [Entitic vol] 8.9 fL 6.2-12.0 [facility] [place] Determination of erythrocyte mean corpuscular volume (MCV)Ordered By: Breanne Riuz on 12-27-2022 MCV (RBC) [Entitic vol] 88.9 fL 81-99 [facility] Hematocrit Auto (Bld) [Volum e fraction]Ordered By: Breanne Ruiz on 12-27-2022 Hematocrit (Bld) [Volume fraction] 44.1 % 37-47 [facility] [place] Laboratory - Chemistry and C hemistry - challengeOrdered By: Breanne Ruiz on 12-27-2022 CO2 [Moles/Vol] 24.0 mmol/L 21.0-32.0 [facility] [place] Urea nitrogen/Creatinine [Mass ratio] 32.3 mg/mg 10-20 [facility] [place] Laboratory - Hematology and Cell countsOrdered By: Breanne Ruiz on 12-27-2022 Erythrocyte distribution width (RBC) [Entitic vol] 50.8 fL 35.1-43.9 [facility] Erythrocyte distribution width (RBC) [Ratio] 15.7 % 11.6-14.6 [facility] [place] Immature granulocytes/100 WBC (Bld) 0.600 % 0.0-0.9 [facility] [place] Comment on above: IG% - Immature Granu locytes (promyelocytes, myelocytes and metamyelocytes) > 1% indicates that a LEFT SHIFT is Present. MCH (RBC) [Entitic mass] 26.4 pg 27.0-32.0 [facility] [place] Nucleated RBC/100 WBC (Bld) [Ratio] 0 % 0-5 [facility] [place] MCHC Auto (RBC) [Mass/Vol]Or dered By: Breanne Ruiz on 12-27-2022 MCHC (RBC) [Mass/Vol] 29.7 g/dL 32-36 [facility] No Panel InformationOrdered By: Breanne Ruiz on 12-27-2022 Estimated GFR (MDRD) Amer 101 mL/min >60 [facility] [place] Comment on above: GFR Calc Estimated GFR (MDRD) Non-Af Amer 84 mL/min >60 [facility] [place] Comment on above: Non- GFR Calc Platelets bldOrdered By: Prashant Ruiz on 12-27-2022 Platelets (Bld) [#/Vol] 491 10*3/uL 150-450 [facility] [place] Serum or plasma calcium jj urement (mass/volume)Ordered By: Breanne Ruiz on 12-27-2022 Calcium [Mass/Vol] 9.3 mg/dL 8.5-10.1 [facility] Serum or plasma creatinine m easurement (mass/volume)Ordered By: Breanne Ruiz on 12-27-2022 Creatinine [Mass/Vol] 0.74 mg/dL 0.55-1.02 [facility] Comment on above: The validity of the calculated GFR & GFRAA in patients over 70 years has not been determined. Clinical correlation is essential. Serum or plasma urea nitroge n measurement (mass/volume)Ordered By: Breanne Ruiz on 12-27-2022 Urea nitrogen [Mass/Vol] 24 mg/dL 7-18 [facility] [place] Thin prep Papanicolaou smear with manual screeningOrdered By: vannessa Ruiz on 12-27-2022 Thin prep Papanicolaou smear with manual screening 6 5-15 [facility] [place] Absolute lymphocyte countOrd ered By: vannessa Ruiz on 12-13-2022 Lymphocytes Auto (Unsp spec) [#/Vol] 0.84 10*3/uL 0.83-4.51 [facility] [place] Basophil percentageOrdered B y: Breanne Ruiz on 12-13-2022 Basophils/100 WBC (Bld) 1.2 % 0-1 [facility] Chloride [Moles/Vol] 108 mmol/L 98-107 [facility] Eosinophils/100 WBC (Bld) 4.5 % 0-5 [facility] [place] Glucose [Mass/Vol] 150 mg/dL 74-106 [facility] Comment on above: Fasting Glucose resu lt greater than or equal to 126 mg/dL suggests DIABETES MELLITUS per A.D.A. criteria. Neutrophils (Bld) [#/Vol] 5.4 10*3/uL 2.0-7.7 [facility] [place] Neutrophils/100 WBC (Bld) 71.5 % 47-70 [facility] [place] Potassium [Moles/Vol] 3.8 mmol/L 3.5-5.1 [facility] Sodium [Moles/Vol] 139 mmol/L 136-145 [facility] WBC (Bld) [#/Vol] 7.5 10*3/uL 4.4-11.0 [facility] Blood erythrocytes count (nu mber/volume)Ordered By: Breanne Ruiz on 12-13-2022 RBC (Bld) [#/Vol] 4.96 10*6/uL 4.2-5.4 [facility] Blood hemoglobin measurement (mass/volume)Ordered By: Breanne Ruiz on 12-13-2022 Hemoglobin (Bld) [Mass/Vol] 13.2 g/dL 12.0-15.0 [facility] [place] Blood lymphocytes/100 leukoc ytesOrdered By: Breanne Ruiz on 12-13-2022 Lymphocytes/100 WBC (Bld) 11.2 % 19-41 [facility] [place] Blood monocytes/100 leukocyt esOrdered By: adalbertobellflowerchetan Ruiz on 12-13-2022 Monocytes/100 WBC (Bld) 10.4 % 0-10 [facility] Blood platelet mean volumeOr dered By: Breanne Ruiz on 12-13-2022 Platelet mean volume (Bld) [Entitic vol] 8.7 fL 6.2-12.0 [facility] [place] Determination of erythrocyte mean corpuscular volume (MCV)Ordered By: Abbiebellflowerchetan Ruiz on 12-13-2022 MCV (RBC) [Entitic vol] 87.1 fL 81-99 [facility] Hematocrit Auto (Bld) [Volum e fraction]Ordered By: Breanne Ruiz on 12-13-2022 Hematocrit (Bld) [Volume fraction] 43.2 % 37-47 [facility] [place] Laboratory - Chemistry and C hemistry - challengeOrdered By: [facility] 12-[facility]22 CO2 [Moles/Vol] 26.0 mmol/L 21.0-32.0 [facility] [place] Urea nitrogen/Creatinine [Mass ratio] 31.7 mg/mg 10-20 [facility] [place] Laboratory - Hematology and Cell countsOrdered By: Breanne Ruiz on 12-13-2022 Erythrocyte distribution width (RBC) [Entitic vol] 49.9 fL 35.1-43.9 [facility] Erythrocyte distribution width (RBC) [Ratio] 15.9 % 11.6-14.6 [facility] [place] Immature granulocytes/100 WBC (Bld) 1.200 % 0.0-0.9 [facility] [place] Comment on above: IG% - Immature Granu locytes (promyelocytes, myelocytes and metamyelocytes) > 1% indicates that a LEFT SHIFT is Present. MCH (RBC) [Entitic mass] 26.6 pg 27.0-32.0 [facility] [place] Nucleated RBC/100 WBC (Bld) [Ratio] 0 % 0-5 [facility] [place] MCHC Auto (RBC) [Mass/Vol]Or dered By: Breanne Ruiz on 12-13-2022 MCHC (RBC) [Mass/Vol] 30.6 g/dL 32-36 [facility] No Panel InformationOrdered By: Breanne Ruiz on 12-13-2022 Estimated GFR (MDRD) Amer 122 mL/min >60 [facility] [place] Comment on above: GFR Calc Estimated GFR (MDRD) Non-Af Amer 101 mL/min >60 [facility] [place] Comment on above: Non- GFR Calc Platelets bldOrdered By: Prashant Ruiz on 12-13-2022 Platelets (Bld) [#/Vol] 502 10*3/uL 150-450 [facility] [place] Serum or plasma calcium jj urement (mass/volume)Ordered By: Breanne Ruiz on 12-13-2022 Calcium [Mass/Vol] 9.2 mg/dL 8.5-10.1 [facility] Serum or plasma creatinine m easurement (mass/volume)Ordered By: Breanne Ruiz on 12-13-2022 Creatinine [Mass/Vol] 0.63 mg/dL 0.55-1.02 [facility] Comment on above: The validity of the calculated GFR & GFRAA in patients over 70 years has not been determined. Clinical correlation is essential. Serum or plasma urea nitroge n measurement (mass/volume)Ordered By: Breanne Ruiz on 12-13-2022 Urea nitrogen [Mass/Vol] 20 mg/dL 7-18 [facility] [place] Thin prep Papanicolaou smear with manual screeningOrdered By: Breanne Ruiz on 12-13-2022 Thin prep Papanicolaou smear with manual screening 5 5-15 [facility] [place] Absolute lymphocyte countOrd ered By: Breanne Ruiz on 11-29-2022 Lymphocytes Auto (Unsp spec) [#/Vol] 0.94 10*3/uL 0.83-4.51 [facility] [place] Basophil percentageOrdered B y: Breanne Ruiz on 11-29-2022 Basophils/100 WBC (Bld) 1.1 % 0-1 [facility] Chloride [Moles/Vol] 106 mmol/L 98-107 [facility] Eosinophils/100 WBC (Bld) 5.0 % 0-5 [facility] [place] Glucose [Mass/Vol] 137 mg/dL 74-106 [facility] Comment on above: Fasting Glucose resu lt greater than or equal to 126 mg/dL suggests DIABETES MELLITUS per A.D.A. criteria. Neutrophils (Bld) [#/Vol] 6.1 10*3/uL 2.0-7.7 [facility] [place] Neutrophils/100 WBC (Bld) 71.9 % 47-70 [facility] [place] Potassium [Moles/Vol] 3.9 mmol/L 3.5-5.1 [facility] Sodium [Moles/Vol] 138 mmol/L 136-145 [facility] WBC (Bld) [#/Vol] 8.4 10*3/uL 4.4-11.0 [facility] Blood erythrocytes count (nu mber/volume)Ordered By: Breanne Ruiz on 11-29-2022 RBC (Bld) [#/Vol] 5.05 10*6/uL 4.2-5.4 [facility] Blood hemoglobin measurement (mass/volume)Ordered By: Breanne Ruiz on 11-29-2022 Hemoglobin (Bld) [Mass/Vol] 13.5 g/dL 12.0-15.0 [facility] [place] Blood lymphocytes/100 leukoc ytesOrdered By: Breanne Ruiz on 11-29-2022 Lymphocytes/100 WBC (Bld) 11.1 % 19-41 [facility] [place] Blood monocytes/100 leukocyt esOrdered By: Breanne Ruiz on 11-29-2022 Monocytes/100 WBC (Bld) 10.3 % 0-10 [facility] Blood platelet mean volumeOr dered By: Breanne Ruiz on 11-29-2022 Platelet mean volume (Bld) [Entitic vol] 8.8 fL 6.2-12.0 [facility] [place] Determination of erythrocyte mean corpuscular volume (MCV)Ordered By: Breanne Ruiz on 11-29-2022 MCV (RBC) [Entitic vol] 87.5 fL 81-99 [facility] Hematocrit Auto (Bld) [Volum e fraction]Ordered By: Breanne Ruiz on 11-29-2022 Hematocrit (Bld) [Volume fraction] 44.2 % 37-47 [facility] [place] Laboratory - Chemistry and C hemistry - challengeOrdered By: Breanne Ruiz on 11-29-2022 CO2 [Moles/Vol] 23.0 mmol/L 21.0-32.0 [facility] [place] Urea nitrogen/Creatinine [Mass ratio] 26.3 mg/mg 10-20 [facility] [place] Laboratory - Hematology and Cell countsOrdered By: Breanne Ruiz on 11-29-2022 Erythrocyte distribution width (RBC) [Entitic vol] 49.9 fL 35.1-43.9 [facility] Erythrocyte distribution width (RBC) [Ratio] 15.7 % 11.6-14.6 [facility] [place] Immature granulocytes/100 WBC (Bld) 0.600 % 0.0-0.9 [facility] [place] Comment on above: IG% - Immature Granu locytes (promyelocytes, myelocytes and metamyelocytes) > 1% indicates that a LEFT SHIFT is Present. MCH (RBC) [Entitic mass] 26.7 pg 27.0-32.0 [facility] [place] Nucleated RBC/100 WBC (Bld) [Ratio] 0 % 0-5 [facility] [place] MCHC Auto (RBC) [Mass/Vol]Or dered By: Breanne Ruiz on 11-29-2022 MCHC (RBC) [Mass/Vol] 30.5 g/dL 32-36 [facility] No Panel InformationOrdered By: Breanne Ruiz on 11-29-2022 Estimated GFR (MDRD) Amer 104 mL/min >60 [facility] [place] Comment on above: GFR Calc Estimated GFR (MDRD) Non-Af Amer 86 mL/min >60 [facility] [place] Comment on above: Non- GFR Calc Platelets bldOrdered By: Prashant Ruiz on 11-29-2022 Platelets (Bld) [#/Vol] 479 10*3/uL 150-450 [facility] [place] Serum or plasma calcium jj urement (mass/volume)Ordered By: Breanne Ruiz on 11-29-2022 Calcium [Mass/Vol] 9.4 mg/dL 8.5-10.1 [facility] Serum or plasma creatinine m easurement (mass/volume)Ordered By: Breanne Ruiz on 11-29-2022 Creatinine [Mass/Vol] 0.72 mg/dL 0.55-1.02 [facility] Comment on above: The validity of the calculated GFR & GFRAA in patients over 70 years has not been determined. Clinical correlation is essential. Serum or plasma urea nitroge n measurement (mass/volume)Ordered By: Breanne Ruiz on 11-29-2022 Urea nitrogen [Mass/Vol] 19 mg/dL 7-18 [facility] [place] Thin prep Papanicolaou smear with manual screeningOrdered By: [facility] on 11-29-2022 Thin prep Papanicolaou smear with manual screening 9 5-15 [facility] [place] Absolute lymphocyte countOrd ered By: Asad Jamison on 11-15-2022 Lymphocytes Auto (Unsp spec) [#/Vol] 1.08 10*3/uL 0.83-4.51 [facility] [place] Basophil percentageOrdered B y: Asad Jamison on 11-15-2022 Basophils/100 WBC (Bld) 0.9 % 0-1 [facility] Chloride [Moles/Vol] 106 mmol/L 98-107 [facility] Eosinophils/100 WBC (Bld) 2.2 % 0-5 [facility] [place] Glucose [Mass/Vol] 120 mg/dL 74-106 [facility] Comment on above: Fasting Glucose resu lt from 100 to 125 mg/dL suggests IMPAIRED HOMEOSTASIS per A.D.A. criteria. Neutrophils (Bld) [#/Vol] 8.1 10*3/uL 2.0-7.7 [facility] [place] Neutrophils/100 WBC (Bld) 75.6 % 47-70 [facility] [place] Potassium [Moles/Vol] 4.1 mmol/L 3.5-5.1 [facility] Sodium [Moles/Vol] 141 mmol/L 136-145 [facility] WBC (Bld) [#/Vol] 10.7 10*3/uL 4.4-11.0 [facility] Blood erythrocytes count (nu mber/volume)Ordered By: Asad Jamison on 11-15-2022 RBC (Bld) [#/Vol] 5.54 10*6/uL 4.2-5.4 [facility] Blood hemoglobin measurement (mass/volume)Ordered By: Asad Jamison on 11-15-2022 Hemoglobin (Bld) [Mass/Vol] 14.8 g/dL 12.0-15.0 [facility] [place] Blood lymphocytes/100 leukoc ytesOrdered By: Asad Jamison on 11-15-2022 Lymphocytes/100 WBC (Bld) 10.1 % 19-41 [facility] [place] Blood monocytes/100 leukocyt esOrdered By: Asad Jamison on 11-15-2022 Monocytes/100 WBC (Bld) 9.6 % 0-10 [facility] Blood platelet mean volumeOr dered By: Asad Jamison on 11-15-2022 Platelet mean volume (Bld) [Entitic vol] 9.1 fL 6.2-12.0 [facility] [place] Determination of erythrocyte mean corpuscular volume (MCV)Ordered By: Asad Jamison on 11-15-2022 MCV (RBC) [Entitic vol] 87.9 fL 81-99 [facility] Hematocrit Auto (Bld) [Volum e fraction]Ordered By: Asad Jamison on 11-15-2022 Hematocrit (Bld) [Volume fraction] 48.7 % 37-47 [facility] [place] Laboratory - Chemistry and C hemistry - challengeOrdered By: Asad Jamison on 11-15-2022 CO2 [Moles/Vol] 27.0 mmol/L 21.0-32.0 [facility] [place] Urea nitrogen/Creatinine [Mass ratio] 35.6 mg/mg 10-20 [facility] [place] Laboratory - Hematology and Cell countsOrdered By: Asad Jamison on 11-15-2022 Erythrocyte distribution width (RBC) [Entitic vol] 50.8 fL 35.1-43.9 [facility] Erythrocyte distribution width (RBC) [Ratio] 15.9 % 11.6-14.6 [facility] [place] Immature granulocytes/100 WBC (Bld) 1.600 % 0.0-0.9 [facility] [place] Comment on above: IG% - Immature Granu locytes (promyelocytes, myelocytes and metamyelocytes) > 1% indicates that a LEFT SHIFT is Present. MCH (RBC) [Entitic mass] 26.7 pg 27.0-32.0 [facility] [place] Nucleated RBC/100 WBC (Bld) [Ratio] 0 % 0-5 [facility] [place] MCHC Auto (RBC) [Mass/Vol]Or dered By: Asad Jamison on 11-15-2022 MCHC (RBC) [Mass/Vol] 30.4 g/dL 32-36 [facility] No Panel InformationOrdered By: Asad Jamison on 11-15-2022 Estimated GFR (MDRD) Amer 99 mL/min >60 [facility] [place] Comment on above: GFR Calc Estimated GFR (MDRD) Non-Af Amer 81 mL/min >60 [facility] [place] Comment on above: Non- GFR Calc Platelets bldOrdered By: Gonzales Jamison on 11-15-2022 Platelets (Bld) [#/Vol] 540 10*3/uL 150-450 [facility] [place] Serum or plasma calcium jj urement (mass/volume)Ordered By: Asad Jamison on 11-15-2022 Calcium [Mass/Vol] 9.5 mg/dL 8.5-10.1 [facility] Serum or plasma creatinine m easurement (mass/volume)Ordered By: Asad Jamison on 11-15-2022 Creatinine [Mass/Vol] 0.76 mg/dL 0.55-1.02 [facility] Comment on above: The validity of the calculated GFR & GFRAA in patients over 70 years has not been determined. Clinical correlation is essential. Serum or plasma urea nitroge n measurement (mass/volume)Ordered By: Asad Jamison on 11-15-2022 Urea nitrogen [Mass/Vol] 27 mg/dL 7-18 [facility] [place] Thin prep Papanicolaou smear with manual screeningOrdered By: Asad Jamison on 11-15-2022 Thin prep Papanicolaou smear with manual screening 8 5-15 [facility] [place] Absolute lymphocyte countOrd ered By: Asad Jamison on 11-01-2022 Lymphocytes Auto (Unsp spec) [#/Vol] 0.81 10*3/uL 0.83-4.51 [facility] [place] Basophil percentageOrdered B y: Asad Jamison on 11-01-2022 Basophils/100 WBC (Bld) 1.0 % 0-1 [facility] Chloride [Moles/Vol] 107 mmol/L 98-107 [facility] Eosinophils/100 WBC (Bld) 4.8 % 0-5 [facility] [place] Glucose [Mass/Vol] 135 mg/dL 74-106 [facility] Comment on above: Fasting Glucose resu lt greater than or equal to 126 mg/dL suggests DIABETES MELLITUS per A.D.A. criteria. Neutrophils (Bld) [#/Vol] 5.9 10*3/uL 2.0-7.7 [facility] [place] Neutrophils/100 WBC (Bld) 73.2 % 47-70 [facility] [place] Potassium [Moles/Vol] 3.9 mmol/L 3.5-5.1 [facility] Sodium [Moles/Vol] 141 mmol/L 136-145 [facility] WBC (Bld) [#/Vol] 8.1 10*3/uL 4.4-11.0 [facility] Blood erythrocytes count (nu mber/volume)Ordered By: Asad Jamison on 11-01-2022 RBC (Bld) [#/Vol] 5.16 10*6/uL 4.2-5.4 [facility] Blood hemoglobin measurement (mass/volume)Ordered By: Asad Jamison on 11-01-2022 Hemoglobin (Bld) [Mass/Vol] 13.3 g/dL 12.0-15.0 [facility] [place] Blood lymphocytes/100 leukoc ytesOrdered By: Asad Jamison on 11-01-2022 Lymphocytes/100 WBC (Bld) 10.0 % 19-41 [facility] [place] Blood monocytes/100 leukocyt esOrdered By: Asad Jamison on 11-01-2022 Monocytes/100 WBC (Bld) 9.9 % 0-10 [facility] Blood platelet mean volumeOr dered By: Asad Jamison on 11-01-2022 Platelet mean volume (Bld) [Entitic vol] 8.9 fL 6.2-12.0 [facility] [place] Determination of erythrocyte mean corpuscular volume (MCV)Ordered By: Asad Jamison on 11-01-2022 MCV (RBC) [Entitic vol] 87.4 fL 81-99 [facility] Hematocrit Auto (Bld) [Volum e fraction]Ordered By: Asad Jamison on 11-01-2022 Hematocrit (Bld) [Volume fraction] 45.1 % 37-47 [facility] [place] Laboratory - Chemistry and C hemistry - challengeOrdered By: Asad Jamison on 11-01-2022 CO2 [Moles/Vol] 25.0 mmol/L 21.0-32.0 [facility] [place] Urea nitrogen/Creatinine [Mass ratio] 32.7 mg/mg 10-20 [facility] [place] Laboratory - Hematology and Cell countsOrdered By: Asad Jamison on 11-01-2022 Erythrocyte distribution width (RBC) [Entitic vol] 47.9 fL 35.1-43.9 [facility] Erythrocyte distribution width (RBC) [Ratio] 15.1 % 11.6-14.6 [facility] [place] Immature granulocytes/100 WBC (Bld) 1.100 % 0.0-0.9 [facility] [place] Comment on above: IG% - Immature Granu locytes (promyelocytes, myelocytes and metamyelocytes) > 1% indicates that a LEFT SHIFT is Present. MCH (RBC) [Entitic mass] 25.8 pg 27.0-32.0 [facility] Nucleated RBC/100 WBC (Bld) [Ratio] 0 % 0-5 [facility] MCHC Auto (RBC) [Mass/Vol]Or dered By: Asad Jamison on 11-01-2022 MCHC (RBC) [Mass/Vol] 29.5 g/dL 32-36 [facility] No Panel InformationOrdered By: Asad Jamison on 11-01-2022 Estimated GFR (MDRD) Amer 108 mL/min >60 [facility] Comment on above: GFR Calc Estimated GFR (MDRD) Non-Af Amer 89 mL/min >60 [facility] Comment on above: Non- GFR Calc Platelets bldOrdered By: Gonzales Jamison on 11-01-2022 Platelets (Bld) [#/Vol] 467 10*3/uL 150-450 [facility] Serum or plasma calcium jj urement (mass/volume)Ordered By: Asad Jamison on 11-01-2022 Calcium [Mass/Vol] 9.3 mg/dL 8.5-10.1 [facility] Serum or plasma creatinine m easurement (mass/volume)Ordered By: Asad Jamison on 11-01-2022 Creatinine [Mass/Vol] 0.70 mg/dL 0.55-1.02 [facility] Comment on above: The validity of the calculated GFR & GFRAA in patients over 70 years has not been determined. Clinical correlation is essential. Serum or plasma urea nitroge n measurement (mass/volume)Ordered By: Asad Jamison on 11-01-2022 Urea nitrogen [Mass/Vol] 23 mg/dL 7-18 [facility] Thin prep Papanicolaou smear with manual screeningOrdered By: Asad Jamison on 11-01-2022 Thin prep Papanicolaou smear with manual screening 9 5-15 [facility] Absolute lymphocyte countOrd ered By: Asad Jamison on 10-18-2022 Lymphocytes Auto (Unsp spec) [#/Vol] 1.14 10*3/uL 0.83-4.51 [facility] Basophil percentageOrdered B y: Asad Jamison on 10-18-2022 Basophils/100 WBC (Bld) 1.1 % 0-1 [facility] Chloride [Moles/Vol] 110 mmol/L 98-107 [facility] Eosinophils/100 WBC (Bld) 5.0 % 0-5 [facility] Glucose [Mass/Vol] 179 mg/dL 74-106 [facility] Comment on above: Fasting Glucose resu lt greater than or equal to 126 mg/dL suggests DIABETES MELLITUS per A.D.A. criteria. Neutrophils (Bld) [#/Vol] 6.5 10*3/uL 2.0-7.7 [facility] Neutrophils/100 WBC (Bld) 69.3 % 47-70 [facility] Potassium [Moles/Vol] 4.0 mmol/L 3.5-5.1 [facility] Sodium [Moles/Vol] 140 mmol/L 136-145 [facility] WBC (Bld) [#/Vol] 9.4 10*3/uL 4.4-11.0 [facility] Blood erythrocytes count (nu mber/volume)Ordered By: Asad Jamison on 10-18-2022 RBC (Bld) [#/Vol] 5.10 10*6/uL 4.2-5.4 [facility] Blood hemoglobin measurement (mass/volume)Ordered By: Asad Jamison on 10-18-2022 Hemoglobin (Bld) [Mass/Vol] 13.6 g/dL 12.0-15.0 [facility] Blood lymphocytes/100 leukoc ytesOrdered By: Asad Jamison on 10-18-2022 Lymphocytes/100 WBC (Bld) 12.1 % 19-41 [facility] Blood monocytes/100 leukocyt esOrdered By: Asad aJmison on 10-18-2022 Monocytes/100 WBC (Bld) 11.1 % 0-10 [facility] Blood platelet mean volumeOr dered By: Asad Jamison on 10-18-2022 Platelet mean volume (Bld) [Entitic vol] 8.6 fL 6.2-12.0 [facility] Determination of erythrocyte mean corpuscular volume (MCV)Ordered By: Asad Jamison on 10-18-2022 MCV (RBC) [Entitic vol] 87.5 fL 81-99 [facility] Hematocrit Auto (Bld) [Volum e fraction]Ordered By: Asad Jamison on 10-18-2022 Hematocrit (Bld) [Volume fraction] 44.6 % 37-47 [facility] Laboratory - Chemistry and C hemistry - challengeOrdered By: Asad Jamison on 10-18-2022 CO2 [Moles/Vol] 22.0 mmol/L 21.0-32.0 [facility] Urea nitrogen/Creatinine [Mass ratio] 28.1 mg/mg 10-20 [facility] Laboratory - Hematology and Cell countsOrdered By: Asad Jamison on 10-18-2022 Erythrocyte distribution width (RBC) [Entitic vol] 46.2 fL 35.1-43.9 [facility] Erythrocyte distribution width (RBC) [Ratio] 14.3 % 11.6-14.6 [facility] Immature granulocytes/100 WBC (Bld) 1.400 % 0.0-0.9 [facility] Comment on above: IG% - Immature Granu locytes (promyelocytes, myelocytes and metamyelocytes) > 1% indicates that a LEFT SHIFT is Present. MCH (RBC) [Entitic mass] 26.7 pg 27.0-32.0 [facility] Nucleated RBC/100 WBC (Bld) [Ratio] 0 % 0-5 [facility] MCHC Auto (RBC) [Mass/Vol]Or dered By: Asad Jamison on 10-18-2022 MCHC (RBC) [Mass/Vol] 30.5 g/dL 32-36 [facility] No Panel InformationOrdered By: Asad Jamison on 10-18-2022 Estimated GFR (MDRD) Amer 106 mL/min >60 [facility] Comment on above: GFR Calc Estimated GFR (MDRD) Non-Af Amer 88 mL/min >60 [facility] Comment on above: Non- GFR Calc Platelets bldOrdered By: Gonzales Jamison on 10-18-2022 Platelets (Bld) [#/Vol] 622 10*3/uL 150-450 [facility] Serum or plasma calcium jj urement (mass/volume)Ordered By: Asad Jamison on 10-18-2022 Calcium [Mass/Vol] 9.4 mg/dL 8.5-10.1 [facility] Serum or plasma creatinine m easurement (mass/volume)Ordered By: Asad Jamison on 10-18-2022 Creatinine [Mass/Vol] 0.71 mg/dL 0.55-1.02 [facility] Comment on above: The validity of the calculated GFR & GFRAA in patients over 70 years has not been determined. Clinical correlation is essential. Serum or plasma urea nitroge n measurement (mass/volume)Ordered By: Asad Jamison on 10-18-2022 Urea nitrogen [Mass/Vol] 20 mg/dL 7-18 [facility] Thin prep Papanicolaou smear with manual screeningOrdered By: Asad Jamison on 10-18-2022 Thin prep Papanicolaou smear with manual screening 8 5-15 [facility] Absolute lymphocyte countOrd ered By: Asad Jamison on 10-04-2022 Lymphocytes Auto (Unsp spec) [#/Vol] 1.09 10*3/uL 0.83-4.51 [facility] Basophil percentageOrdered B y: sAad Jamison on 10-04-2022 Basophils/100 WBC (Bld) 1.2 % 0-1 [facility] Chloride [Moles/Vol] 107 mmol/L 98-107 [facility] Eosinophils/100 WBC (Bld) 4.5 % 0-5 [facility] Glucose [Mass/Vol] 123 mg/dL 74-106 [facility] Comment on above: Fasting Glucose resu lt from 100 to 125 mg/dL suggests IMPAIRED HOMEOSTASIS per A.D.A. criteria. Neutrophils (Bld) [#/Vol] 6.5 10*3/uL 2.0-7.7 [facility] Neutrophils/100 WBC (Bld) 71.3 % 47-70 [facility] Potassium [Moles/Vol] 3.9 mmol/L 3.5-5.1 [facility] Sodium [Moles/Vol] 140 mmol/L 136-145 [facility] WBC (Bld) [#/Vol] 9.1 10*3/uL 4.4-11.0 [facility] Blood erythrocytes count (nu mber/volume)Ordered By: Asad Jamison on 10-04-2022 RBC (Bld) [#/Vol] 5.46 10*6/uL 4.2-5.4 [facility] Blood hemoglobin measurement (mass/volume)Ordered By: Asad Jamison on 10-04-2022 Hemoglobin (Bld) [Mass/Vol] 14.4 g/dL 12.0-15.0 [facility] Blood lymphocytes/100 leukoc ytesOrdered By: Asad Jamison on 10-04-2022 Lymphocytes/100 WBC (Bld) 12.0 % 19-41 [facility] Blood monocytes/100 leukocyt esOrdered By: Asad Jamison on 10-04-2022 Monocytes/100 WBC (Bld) 10.0 % 0-10 [facility] Blood platelet mean volumeOr dered By: Asad Jamison on 10-04-2022 Platelet mean volume (Bld) [Entitic vol] 8.4 fL 6.2-12.0 [facility] Determination of erythrocyte mean corpuscular volume (MCV)Ordered By: Asad Jamison on 10-04-2022 MCV (RBC) [Entitic vol] 86.1 fL 81-99 [facility] Hematocrit Auto (Bld) [Volum e fraction]Ordered By: Asad Jamison on 10-04-2022 Hematocrit (Bld) [Volume fraction] 47.0 % 37-47 [facility] Laboratory - Chemistry and C hemistry - challengeOrdered By: Asad Jamison on 10-04-2022 CO2 [Moles/Vol] 25.0 mmol/L 21.0-32.0 [facility] Urea nitrogen/Creatinine [Mass ratio] 34.6 mg/mg 10-20 [facility] Laboratory - Hematology and Cell countsOrdered By: Asad Jamison on 10-04-2022 Erythrocyte distribution width (RBC) [Entitic vol] 44.2 fL 35.1-43.9 [facility] Erythrocyte distribution width (RBC) [Ratio] 14.2 % 11.6-14.6 [facility] Immature granulocytes/100 WBC (Bld) 1.000 % 0.0-0.9 [facility] Comment on above: IG% - Immature Granu locytes (promyelocytes, myelocytes and metamyelocytes) > 1% indicates that a LEFT SHIFT is Present. MCH (RBC) [Entitic mass] 26.4 pg 27.0-32.0 [facility] Nucleated RBC/100 WBC (Bld) [Ratio] 0 % 0-5 [facility] MCHC Auto (RBC) [Mass/Vol]Or dered By: Asad Jamison on 10-04-2022 MCHC (RBC) [Mass/Vol] 30.6 g/dL 32-36 [facility] No Panel InformationOrdered By: Asad Jamison on 10-04-2022 Estimated GFR (MDRD) Amer 115 mL/min >60 [facility] Comment on above: GFR Calc Estimated GFR (MDRD) Non-Af Amer 95 mL/min >60 [facility] Comment on above: Non- GFR Calc Platelets bldOrdered By: Gonzales Jamison on 10-04-2022 Platelets (Bld) [#/Vol] 566 10*3/uL 150-450 [facility] Serum or plasma calcium jj urement (mass/volume)Ordered By: Asad Jamison on 10-04-2022 Calcium [Mass/Vol] 9.8 mg/dL 8.5-10.1 [facility] Serum or plasma creatinine m easurement (mass/volume)Ordered By: Asad Jamison on 10-04-2022 Creatinine [Mass/Vol] 0.66 mg/dL 0.55-1.02 [facility] Comment on above: The validity of the calculated GFR & GFRAA in patients over 70 years has not been determined. Clinical correlation is essential. Serum or plasma urea nitroge n measurement (mass/volume)Ordered By: Asad Jamison on 10-04-2022 Urea nitrogen [Mass/Vol] 23 mg/dL 7-18 [facility] Thin prep Papanicolaou smear with manual screeningOrdered By: Asad Jamison on 10-04-2022 Thin prep Papanicolaou smear with manual screening 8 5-15 [facility] Absolute lymphocyte countOrd ered By: Asad Jamison on 09-20-2022 Lymphocytes Auto (Unsp spec) [#/Vol] 1.20 10*3/uL 0.83-4.51 [facility] Basophil percentageOrdered B y: Asad Jamison on 09-20-2022 Basophils/100 WBC (Bld) 1.1 % 0-1 [facility] Chloride [Moles/Vol] 110 mmol/L 98-107 [facility] Eosinophils/100 WBC (Bld) 5.3 % 0-5 [facility] Glucose [Mass/Vol] 129 mg/dL 74-106 [facility] Comment on above: Fasting Glucose resu lt greater than or equal to 126 mg/dL suggests DIABETES MELLITUS per A.D.A. criteria. Neutrophils (Bld) [#/Vol] 7.2 10*3/uL 2.0-7.7 [facility] Neutrophils/100 WBC (Bld) 71.4 % 47-70 [facility] Potassium [Moles/Vol] 4.0 mmol/L 3.5-5.1 [facility] Sodium [Moles/Vol] 139 mmol/L 136-145 [facility] WBC (Bld) [#/Vol] 10.0 10*3/uL 4.4-11.0 [facility] Blood erythrocytes count (nu mber/volume)Ordered By: Asad Jamison on 09-20-2022 RBC (Bld) [#/Vol] 4.97 10*6/uL 4.2-5.4 [facility] Blood hemoglobin measurement (mass/volume)Ordered By: Asad Jamison on 09-20-2022 Hemoglobin (Bld) [Mass/Vol] 13.4 g/dL 12.0-15.0 [facility] Blood lymphocytes/100 leukoc ytesOrdered By: Asad Jamison on 09-20-2022 Lymphocytes/100 WBC (Bld) 12.0 % 19-41 [facility] Blood monocytes/100 leukocyt esOrdered By: Asad Jamison on 09-20-2022 Monocytes/100 WBC (Bld) 9.3 % 0-10 [facility] Blood platelet mean volumeOr dered By: Asad Jamison on 09-20-2022 Platelet mean volume (Bld) [Entitic vol] 8.7 fL 6.2-12.0 [facility] Determination of erythrocyte mean corpuscular volume (MCV)Ordered By: Asad Jamison on 09-20-2022 MCV (RBC) [Entitic vol] 88.3 fL 81-99 [facility] Hematocrit Auto (Bld) [Volum e fraction]Ordered By: Asad Jamison on 09-20-2022 Hematocrit (Bld) [Volume fraction] 43.9 % 37-47 [facility] Laboratory - Chemistry and C hemistry - challengeOrdered By: Asad Jamison on 09-20-2022 CO2 [Moles/Vol] 25.0 mmol/L 21.0-32.0 [facility] Urea nitrogen/Creatinine [Mass ratio] 41.7 mg/mg 10-20 [facility] Laboratory - Hematology and Cell countsOrdered By: Asad Jamison on 09-20-2022 Erythrocyte distribution width (RBC) [Entitic vol] 45.1 fL 35.1-43.9 [facility] Erythrocyte distribution width (RBC) [Ratio] 14.2 % 11.6-14.6 [facility] Immature granulocytes/100 WBC (Bld) 0.900 % 0.0-0.9 [facility] Comment on above: IG% - Immature Granu locytes (promyelocytes, myelocytes and metamyelocytes) > 1% indicates that a LEFT SHIFT is Present. MCH (RBC) [Entitic mass] 27.0 pg 27.0-32.0 [facility] Nucleated RBC/100 WBC (Bld) [Ratio] 0 % 0-5 [facility] MCHC Auto (RBC) [Mass/Vol]Or dered By: Asad Jamison on 09-20-2022 MCHC (RBC) [Mass/Vol] 30.5 g/dL 32-36 [facility] No Panel InformationOrdered By: Asad Jamison on 09-20-2022 Estimated GFR (MDRD) Amer 129 mL/min >60 [facility] Comment on above: GFR Calc Estimated GFR (MDRD) Non-Af Amer 107 mL/min >60 [facility] Comment on above: Non- GFR Calc Platelets bldOrdered By: Gonzales Jamison on 09-20-2022 Platelets (Bld) [#/Vol] 533 10*3/uL 150-450 [facility] Serum or plasma calcium jj urement (mass/volume)Ordered By: Asad Jamison on 09-20-2022 Calcium [Mass/Vol] 9.4 mg/dL 8.5-10.1 [facility] Serum or plasma creatinine m easurement (mass/volume)Ordered By: Asad Jamison on 09-20-2022 Creatinine [Mass/Vol] 0.60 mg/dL 0.55-1.02 [facility] Comment on above: The validity of the calculated GFR & GFRAA in patients over 70 years has not been determined. Clinical correlation is essential. Serum or plasma urea nitroge n measurement (mass/volume)Ordered By: Asad Jamison on 09-20-2022 Urea nitrogen [Mass/Vol] 25 mg/dL 7-18 [facility] Thin prep Papanicolaou smear with manual screeningOrdered By: Asad Jamison on 09-20-2022 Thin prep Papanicolaou smear with manual screening 4 5-15 [facility] Absolute lymphocyte countOrd ered By: Asad Jamison on 09-06-2022 Lymphocytes Auto (Unsp spec) [#/Vol] 0.97 10*3/uL 0.83-4.51 [facility] Basophil percentageOrdered B y: Asad Jamison on 09-06-2022 Basophils/100 WBC (Bld) 1.0 % 0-1 [facility] Chloride [Moles/Vol] 107 mmol/L 98-107 [facility] Eosinophils/100 WBC (Bld) 4.5 % 0-5 [facility] Glucose [Mass/Vol] 112 mg/dL 74-106 [facility] Comment on above: Fasting Glucose resu lt from 100 to 125 mg/dL suggests IMPAIRED HOMEOSTASIS per A.D.A. criteria. Neutrophils (Bld) [#/Vol] 6.2 10*3/uL 2.0-7.7 [facility] Neutrophils/100 WBC (Bld) 72.2 % 47-70 [facility] Potassium [Moles/Vol] 3.7 mmol/L 3.5-5.1 [facility] Sodium [Moles/Vol] 138 mmol/L 136-145 [facility] WBC (Bld) [#/Vol] 8.6 10*3/uL 4.4-11.0 [facility] Blood erythrocytes count (nu mber/volume)Ordered By: Asad Jamison on 09-06-2022 RBC (Bld) [#/Vol] 5.05 10*6/uL 4.2-5.4 [facility] Blood hemoglobin measurement (mass/volume)Ordered By: Asad Jamison on 09-06-2022 Hemoglobin (Bld) [Mass/Vol] 13.6 g/dL 12.0-15.0 [facility] Blood lymphocytes/100 leukoc ytesOrdered By: Asad Jamison on 09-06-2022 Lymphocytes/100 WBC (Bld) 11.3 % 19-41 [facility] Blood monocytes/100 leukocyt esOrdered By: Asad Jamison on 09-06-2022 Monocytes/100 WBC (Bld) 10.4 % 0-10 [facility] Blood platelet mean volumeOr dered By: Asad Jamison on 09-06-2022 Platelet mean volume (Bld) [Entitic vol] 8.4 fL 6.2-12.0 [facility] Determination of erythrocyte mean corpuscular volume (MCV)Ordered By: Asad Jamison on 09-06-2022 MCV (RBC) [Entitic vol] 87.7 fL 81-99 [facility] Hematocrit Auto (Bld) [Volum e fraction]Ordered By: Asad Jamison on 09-06-2022 Hematocrit (Bld) [Volume fraction] 44.3 % 37-47 [facility] Laboratory - Chemistry and C hemistry - challengeOrdered By: Asad Jamison on 09-06-2022 CO2 [Moles/Vol] 25.0 mmol/L 21.0-32.0 [facility] Urea nitrogen/Creatinine [Mass ratio] 30.4 mg/mg 10-20 [facility] Laboratory - Hematology and Cell countsOrdered By: Asad Jamison on 09-06-2022 Erythrocyte distribution width (RBC) [Entitic vol] 45.9 fL 35.1-43.9 [facility] Erythrocyte distribution width (RBC) [Ratio] 14.3 % 11.6-14.6 [facility] Immature granulocytes/100 WBC (Bld) 0.600 % 0.0-0.9 [facility] Comment on above: IG% - Immature Granu locytes (promyelocytes, myelocytes and metamyelocytes) > 1% indicates that a LEFT SHIFT is Present. MCH (RBC) [Entitic mass] 26.9 pg 27.0-32.0 [facility] Nucleated RBC/100 WBC (Bld) [Ratio] 0 % 0-5 [facility] MCHC Auto (RBC) [Mass/Vol]Or dered By: Asad Jamison on 09-06-2022 MCHC (RBC) [Mass/Vol] 30.7 g/dL 32-36 [facility] No Panel InformationOrdered By: Asad Jamison on 09-06-2022 Estimated GFR (MDRD) Amer 116 mL/min >60 [facility] Comment on above: GFR Calc Estimated GFR (MDRD) Non-Af Amer 96 mL/min >60 [facility] Comment on above: Non- GFR Calc Platelets bldOrdered By: Gonzales Jamison on 09-06-2022 Platelets (Bld) [#/Vol] 484 10*3/uL 150-450 [facility] Serum or plasma calcium jj urement (mass/volume)Ordered By: Asad Jamison on 09-06-2022 Calcium [Mass/Vol] 9.4 mg/dL 8.5-10.1 [facility] Serum or plasma creatinine m easurement (mass/volume)Ordered By: Asad Jamison on 09-06-2022 Creatinine [Mass/Vol] 0.66 mg/dL 0.55-1.02 [facility] Comment on above: The validity of the calculated GFR & GFRAA in patients over 70 years has not been determined. Clinical correlation is essential. Serum or plasma urea nitroge n measurement (mass/volume)Ordered By: Asad Jamison on 09-06-2022 Urea nitrogen [Mass/Vol] 20 mg/dL 7-18 [facility] Thin prep Papanicolaou smear with manual screeningOrdered By: Asad Jamison on 09-06-2022 Thin prep Papanicolaou smear with manual screening 6 5-15 [facility] Absolute lymphocyte countOrd ered By: Asad Jamison on 08-23-2022 Lymphocytes Auto (Unsp spec) [#/Vol] 1.01 10*3/uL 0.83-4.51 [facility] Basophil percentageOrdered B y: Asad Jamison on 08-23-2022 Basophils/100 WBC (Bld) 1.6 % 0-1 [facility] Chloride [Moles/Vol] 106 mmol/L 98-107 [facility] Eosinophils/100 WBC (Bld) 5.7 % 0-5 [facility] Glucose [Mass/Vol] 129 mg/dL 74-106 [facility] Comment on above: Fasting Glucose resu lt greater than or equal to 126 mg/dL suggests DIABETES MELLITUS per A.D.A. criteria. Neutrophils (Bld) [#/Vol] 4.6 10*3/uL 2.0-7.7 [facility] Neutrophils/100 WBC (Bld) 65.1 % 47-70 [facility] Potassium [Moles/Vol] 4.1 mmol/L 3.5-5.1 [facility] Sodium [Moles/Vol] 141 mmol/L 136-145 [facility] WBC (Bld) [#/Vol] 7.0 10*3/uL 4.4-11.0 [facility] Blood erythrocytes count (nu mber/volume)Ordered By: Asad Jamison on 08-23-2022 RBC (Bld) [#/Vol] 5.08 10*6/uL 4.2-5.4 [facility] Blood hemoglobin measurement (mass/volume)Ordered By: Asad Jamison on 08-23-2022 Hemoglobin (Bld) [Mass/Vol] 13.7 g/dL 12.0-15.0 [facility] Blood lymphocytes/100 leukoc ytesOrdered By: Asad Jamison on 08-23-2022 Lymphocytes/100 WBC (Bld) 14.4 % 19-41 [facility] Blood monocytes/100 leukocyt esOrdered By: Asad Jamison on 08-23-2022 Monocytes/100 WBC (Bld) 12.5 % 0-10 [facility] Blood platelet mean volumeOr dered By: Asad Jamison on 08-23-2022 Platelet mean volume (Bld) [Entitic vol] 9.1 fL 6.2-12.0 [facility] Determination of erythrocyte mean corpuscular volume (MCV)Ordered By: Asad Jamison on 08-23-2022 MCV (RBC) [Entitic vol] 88.4 fL 81-99 [facility] Hematocrit Auto (Bld) [Volum e fraction]Ordered By: Asad Jamison on 08-23-2022 Hematocrit (Bld) [Volume fraction] 44.9 % 37-47 [facility] Laboratory - Chemistry and C hemistry - challengeOrdered By: Asad Jamison on 08-23-2022 CO2 [Moles/Vol] 26.0 mmol/L 21.0-32.0 [facility] Urea nitrogen/Creatinine [Mass ratio] 38.0 mg/mg 10-20 [facility] Laboratory - Hematology and Cell countsOrdered By: Asad Jamison on 08-23-2022 Erythrocyte distribution width (RBC) [Entitic vol] 45.2 fL 35.1-43.9 [facility] Erythrocyte distribution width (RBC) [Ratio] 14.1 % 11.6-14.6 [facility] Immature granulocytes/100 WBC (Bld) 0.700 % 0.0-0.9 [facility] Comment on above: IG% - Immature Granu locytes (promyelocytes, myelocytes and metamyelocytes) > 1% indicates that a LEFT SHIFT is Present. MCH (RBC) [Entitic mass] 27.0 pg 27.0-32.0 [facility] Nucleated RBC/100 WBC (Bld) [Ratio] 0 % 0-5 [facility] MCHC Auto (RBC) [Mass/Vol]Or dered By: Asad Jamison on 08-23-2022 MCHC (RBC) [Mass/Vol] 30.5 g/dL 32-36 [facility] No Panel InformationOrdered By: Asad Jamison on 08-23-2022 Estimated GFR (MDRD) Amer 128 mL/min >60 [facility] Comment on above: GFR Calc Estimated GFR (MDRD) Non-Af Amer 106 mL/min >60 [facility] Comment on above: Non- GFR Calc Platelets bldOrdered By: Gonzales Jamison on 08-23-2022 Platelets (Bld) [#/Vol] 504 10*3/uL 150-450 [facility] Serum or plasma calcium jj urement (mass/volume)Ordered By: Asad Jamison on 08-23-2022 Calcium [Mass/Vol] 9.5 mg/dL 8.5-10.1 [facility] Serum or plasma creatinine m easurement (mass/volume)Ordered By: Asad Jamison on 08-23-2022 Creatinine [Mass/Vol] 0.60 mg/dL 0.55-1.02 [facility] Comment on above: The validity of the calculated GFR & GFRAA in patients over 70 years has not been determined. Clinical correlation is essential. Serum or plasma urea nitroge n measurement (mass/volume)Ordered By: Asad Jamison on 08-23-2022 Urea nitrogen [Mass/Vol] 23 mg/dL 7-18 [facility] Thin prep Papanicolaou smear with manual screeningOrdered By: Asad Jamison on 08-23-2022 Thin prep Papanicolaou smear with manual screening 9 5-15 [facility] Absolute lymphocyte countOrd ered By: Breanne Ruiz on 08-09-2022 Lymphocytes Auto (Unsp spec) [#/Vol] 1.01 10*3/uL 0.83-4.51 [facility] Basophil percentageOrdered B y: Breanne Ruiz on 08-09-2022 Basophils/100 WBC (Bld) 1.0 % 0-1 [facility] Chloride [Moles/Vol] 106 mmol/L 98-107 [facility] Eosinophils/100 WBC (Bld) 5.8 % 0-5 [facility] Glucose [Mass/Vol] 117 mg/dL 74-106 [facility] Comment on above: Fasting Glucose resu lt from 100 to 125 mg/dL suggests IMPAIRED HOMEOSTASIS per A.D.A. criteria. Neutrophils (Bld) [#/Vol] 5.8 10*3/uL 2.0-7.7 [facility] Neutrophils/100 WBC (Bld) 69.6 % 47-70 [facility] Potassium [Moles/Vol] 4.1 mmol/L 3.5-5.1 [facility] Comment on above: Slight Hemolysis, Re sult may be falsely increased. Sodium [Moles/Vol] 138 mmol/L 136-145 [facility] WBC (Bld) [#/Vol] 8.3 10*3/uL 4.4-11.0 [facility] Blood erythrocytes count (nu mber/volume)Ordered By: Breanne Ruiz on 08-09-2022 RBC (Bld) [#/Vol] 4.96 10*6/uL 4.2-5.4 [facility] Blood hemoglobin measurement (mass/volume)Ordered By: Breanne Ruiz on 08-09-2022 Hemoglobin (Bld) [Mass/Vol] 13.3 g/dL 12.0-15.0 [facility] Blood lymphocytes/100 leukoc ytesOrdered By: Breanne Ruiz on 08-09-2022 Lymphocytes/100 WBC (Bld) 12.2 % 19-41 [facility] Blood monocytes/100 leukocyt esOrdered By: Breanne Ruiz on 08-09-2022 Monocytes/100 WBC (Bld) 10.8 % 0-10 [facility] Blood platelet mean volumeOr dered By: Breanne Ruiz on 08-09-2022 Platelet mean volume (Bld) [Entitic vol] 9.0 fL 6.2-12.0 [facility] Determination of erythrocyte mean corpuscular volume (MCV)Ordered By: Breanne Ruiz on 08-09-2022 MCV (RBC) [Entitic vol] 89.3 fL 81-99 [facility] Hematocrit Auto (Bld) [Volum e fraction]Ordered By: Breanne Ruiz on 08-09-2022 Hematocrit (Bld) [Volume fraction] 44.3 % 37-47 [facility] Laboratory - Chemistry and C hemistry - challengeOrdered By: Breanne Ruiz on 08-09-2022 CO2 [Moles/Vol] 23.0 mmol/L 21.0-32.0 [facility] Urea nitrogen/Creatinine [Mass ratio] 38.2 mg/mg 10-20 [facility] Laboratory - Hematology and Cell countsOrdered By: Breanne Ruiz on 08-09-2022 Erythrocyte distribution width (RBC) [Entitic vol] 46.2 fL 35.1-43.9 [facility] Erythrocyte distribution width (RBC) [Ratio] 14.2 % 11.6-14.6 [facility] Immature granulocytes/100 WBC (Bld) 0.600 % 0.0-0.9 [facility] Comment on above: IG% - Immature Granu locytes (promyelocytes, myelocytes and metamyelocytes) > 1% indicates that a LEFT SHIFT is Present. MCH (RBC) [Entitic mass] 26.8 pg 27.0-32.0 [facility] Nucleated RBC/100 WBC (Bld) [Ratio] 0 % 0-5 [facility] MCHC Auto (RBC) [Mass/Vol]Or dered By: Breanne Ruiz on 08-09-2022 MCHC (RBC) [Mass/Vol] 30.0 g/dL 32-36 [facility] No Panel InformationOrdered By: Breanne Ruiz on 08-09-2022 Estimated GFR (MDRD) Amer 122 mL/min >60 [facility] Comment on above: GFR Calc Estimated GFR (MDRD) Non-Af Amer 101 mL/min >60 [facility] Comment on above: Non- GFR Calc Platelets bldOrdered By: Prashant Ruiz on 08-09-2022 Platelets (Bld) [#/Vol] 463 10*3/uL 150-450 [facility] Serum or plasma calcium jj urement (mass/volume)Ordered By: Breanne Ruiz on 08-09-2022 Calcium [Mass/Vol] 9.5 mg/dL 8.5-10.1 [facility] Serum or plasma creatinine m easurement (mass/volume)Ordered By: Breanne Ruiz on 08-09-2022 Creatinine [Mass/Vol] 0.63 mg/dL 0.55-1.02 [facility] Comment on above: The validity of the calculated GFR & GFRAA in patients over 70 years has not been determined. Clinical correlation is essential. Serum or plasma urea nitroge n measurement (mass/volume)Ordered By: Breanne Ruiz on 08-09-2022 Urea nitrogen [Mass/Vol] 24 mg/dL 7-18 [facility] Thin prep Papanicolaou smear with manual screeningOrdered By: Breanne Ruiz on 08-09-2022 Thin prep Papanicolaou smear with manual screening 9 5-15 [facility] Absolute lymphocyte countOrd ered By: Breanne Ruiz on 07-26-2022 Lymphocytes Auto (Unsp spec) [#/Vol] 1.12 10*3/uL 0.83-4.51 [facility] Basophil percentageOrdered B y: Breanne Ruiz on 07-26-2022 Basophils/100 WBC (Bld) 1.7 % 0-1 [facility] Chloride [Moles/Vol] 109 mmol/L 98-107 [facility] Eosinophils/100 WBC (Bld) 6.3 % 0-5 [facility] Glucose [Mass/Vol] 110 mg/dL 74-106 [facility] Comment on above: Fasting Glucose resu lt from 100 to 125 mg/dL suggests IMPAIRED HOMEOSTASIS per A.D.A. criteria. Neutrophils (Bld) [#/Vol] 4.2 10*3/uL 2.0-7.7 [facility] Neutrophils/100 WBC (Bld) 62.5 % 47-70 [facility] Potassium [Moles/Vol] 4.1 mmol/L 3.5-5.1 [facility] Sodium [Moles/Vol] 143 mmol/L 136-145 [facility] WBC (Bld) [#/Vol] 6.6 10*3/uL 4.4-11.0 [facility] Blood erythrocytes count (nu mber/volume)Ordered By: Breanne Ruiz on 07-26-2022 RBC (Bld) [#/Vol] 4.98 10*6/uL 4.2-5.4 [facility] Blood hemoglobin measurement (mass/volume)Ordered By: Breanne Ruiz on 07-26-2022 Hemoglobin (Bld) [Mass/Vol] 13.4 g/dL 12.0-15.0 [facility] Blood lymphocytes/100 leukoc ytesOrdered By: Breanne Ruiz on 07-26-2022 Lymphocytes/100 WBC (Bld) 16.9 % 19-41 [facility] Blood monocytes/100 leukocyt esOrdered By: Breanne Ruiz on 07-26-2022 Monocytes/100 WBC (Bld) 11.5 % 0-10 [facility] Blood platelet mean volumeOr dered By: Breanne Ruiz on 07-26-2022 Platelet mean volume (Bld) [Entitic vol] 8.9 fL 6.2-12.0 [facility] Determination of erythrocyte mean corpuscular volume (MCV)Ordered By: Breanne Ruiz on 07-26-2022 MCV (RBC) [Entitic vol] 90.6 fL 81-99 [facility] Hematocrit Auto (Bld) [Volum e fraction]Ordered By: Breanne Ruiz on 07-26-2022 Hematocrit (Bld) [Volume fraction] 45.1 % 37-47 [facility] Laboratory - Chemistry and C hemistry - challengeOrdered By: Breanne Ruiz on 07-26-2022 CO2 [Moles/Vol] 25.0 mmol/L 21.0-32.0 [facility] Urea nitrogen/Creatinine [Mass ratio] 48.5 mg/mg 10-20 [facility] Laboratory - Hematology and Cell countsOrdered By: Breanne Ruiz on 07-26-2022 Erythrocyte distribution width (RBC) [Entitic vol] 48.2 fL 35.1-43.9 [facility] Erythrocyte distribution width (RBC) [Ratio] 14.5 % 11.6-14.6 [facility] Immature granulocytes/100 WBC (Bld) 1.100 % 0.0-0.9 [facility] Comment on above: IG% - Immature Granu locytes (promyelocytes, myelocytes and metamyelocytes) > 1% indicates that a LEFT SHIFT is Present. MCH (RBC) [Entitic mass] 26.9 pg 27.0-32.0 [facility] Nucleated RBC/100 WBC (Bld) [Ratio] 0 % 0-5 [facility] MCHC Auto (RBC) [Mass/Vol]Or dered By: Breanne Ruiz on 07-26-2022 MCHC (RBC) [Mass/Vol] 29.7 g/dL 32-36 [facility] No Panel InformationOrdered By: Breanne Ruiz on 07-26-2022 Estimated GFR (MDRD) Amer 116 mL/min >60 [facility] Comment on above: GFR Calc Estimated GFR (MDRD) Non-Af Amer 96 mL/min >60 [facility] Comment on above: Non- GFR Calc Platelets bldOrdered By: Prashant Ruiz on 07-26-2022 Platelets (Bld) [#/Vol] 464 10*3/uL 150-450 [facility] Serum or plasma calcium jj urement (mass/volume)Ordered By: Breanne Ruiz on 07-26-2022 Calcium [Mass/Vol] 9.7 mg/dL 8.5-10.1 [facility] Serum or plasma creatinine m easurement (mass/volume)Ordered By: Breanne Ruiz on 07-26-2022 Creatinine [Mass/Vol] 0.66 mg/dL 0.55-1.02 [facility] Comment on above: The validity of the calculated GFR & GFRAA in patients over 70 years has not been determined. Clinical correlation is essential. Serum or plasma urea nitroge n measurement (mass/volume)Ordered By: Breanne Ruiz on 07-26-2022 Urea nitrogen [Mass/Vol] 32 mg/dL 7-18 [facility] Thin prep Papanicolaou smear with manual screeningOrdered By: Breanne Ruiz on 07-26-2022 Thin prep Papanicolaou smear with manual screening 9 5-15 [facility] Whole blood hemoglobin A1c/t otal hemoglobin ratio (mass fraction)Ordered By: Breanne Ruiz on 07-13-2022 HbA1c (Bld) [Mass fraction] 5.8 % 3.8-5.6 [facility] Comment on above: Normal < 5.7 % Predi abetic 5.7 - 6.4 % Diabetic >or= 6.5 % Please note range changes. Absolute lymphocyte countOrd ered By: Asad Jamison on 07-12-2022 Lymphocytes Auto (Unsp spec) [#/Vol] 1.16 10*3/uL 0.83-4.51 [facility] Basophil percentageOrdered B y: Asad Jamison on 07-12-2022 Basophils/100 WBC (Bld) 1.4 % 0-1 [facility] Chloride [Moles/Vol] 107 mmol/L 98-107 [facility] Eosinophils/100 WBC (Bld) 4.3 % 0-5 [facility] Glucose [Mass/Vol] 148 mg/dL 74-106 [facility] Comment on above: Fasting Glucose resu lt greater than or equal to 126 mg/dL suggests DIABETES MELLITUS per A.D.A. criteria. Neutrophils (Bld) [#/Vol] 5.3 10*3/uL 2.0-7.7 [facility] Neutrophils/100 WBC (Bld) 69.0 % 47-70 [facility] Potassium [Moles/Vol] 3.9 mmol/L 3.5-5.1 [facility] Sodium [Moles/Vol] 142 mmol/L 136-145 [facility] WBC (Bld) [#/Vol] 7.7 10*3/uL 4.4-11.0 [facility] Blood erythrocytes count (nu mber/volume)Ordered By: Asad Jamison on 07-12-2022 RBC (Bld) [#/Vol] 4.99 10*6/uL 4.2-5.4 [facility] Blood hemoglobin measurement (mass/volume)Ordered By: Asad Jamison on 07-12-2022 Hemoglobin (Bld) [Mass/Vol] 13.4 g/dL 12.0-15.0 [facility] Blood lymphocytes/100 leukoc ytesOrdered By: Asad Jamison on 07-12-2022 Lymphocytes/100 WBC (Bld) 15.0 % 19-41 [facility] Blood monocytes/100 leukocyt esOrdered By: Asad Jamison on 07-12-2022 Monocytes/100 WBC (Bld) 9.8 % 0-10 [facility] Blood platelet mean volumeOr dered By: Asad Jamison on 07-12-2022 Platelet mean volume (Bld) [Entitic vol] 8.6 fL 6.2-12.0 [facility] Determination of erythrocyte mean corpuscular volume (MCV)Ordered By: Asad Jamison on 07-12-2022 MCV (RBC) [Entitic vol] 88.4 fL 81-99 [facility] Hematocrit Auto (Bld) [Volum e fraction]Ordered By: Asad Jamison on 07-12-2022 Hematocrit (Bld) [Volume fraction] 44.1 % 37-47 [facility] Laboratory - Chemistry and C hemistry - challengeOrdered By: Asad Jamison on 07-12-2022 CO2 [Moles/Vol] 27.0 mmol/L 21.0-32.0 [facility] Urea nitrogen/Creatinine [Mass ratio] 36.2 mg/mg 10-20 [facility] Laboratory - Hematology and Cell countsOrdered By: Asad Jamison on 07-12-2022 Erythrocyte distribution width (RBC) [Entitic vol] 46.5 fL 35.1-43.9 [facility] Erythrocyte distribution width (RBC) [Ratio] 14.4 % 11.6-14.6 [facility] Immature granulocytes/100 WBC (Bld) 0.500 % 0.0-0.9 [facility] Comment on above: IG% - Immature Granu locytes (promyelocytes, myelocytes and metamyelocytes) > 1% indicates that a LEFT SHIFT is Present. MCH (RBC) [Entitic mass] 26.9 pg 27.0-32.0 [facility] Nucleated RBC/100 WBC (Bld) [Ratio] 0 % 0-5 [facility] MCHC Auto (RBC) [Mass/Vol]Or dered By: Asad Jamison on 07-12-2022 MCHC (RBC) [Mass/Vol] 30.4 g/dL 32-36 [facility] No Panel InformationOrdered By: Asad Jamison on 07-12-2022 Estimated GFR (MDRD) Amer 101 mL/min >60 [facility] Comment on above: GFR Calc Estimated GFR (MDRD) Non-Af Amer 83 mL/min >60 [facility] Comment on above: Non- GFR Calc Platelets bldOrdered By: Gonzales Jamison on 07-12-2022 Platelets (Bld) [#/Vol] 491 10*3/uL 150-450 [facility] Serum or plasma calcium jj urement (mass/volume)Ordered By: Asad Jamison on 07-12-2022 Calcium [Mass/Vol] 9.7 mg/dL 8.5-10.1 [facility] Serum or plasma creatinine m easurement (mass/volume)Ordered By: Asad Jamison on 07-12-2022 Creatinine [Mass/Vol] 0.74 mg/dL 0.55-1.02 [facility] Comment on above: The validity of the calculated GFR & GFRAA in patients over 70 years has not been determined. Clinical correlation is essential. Serum or plasma urea nitroge n measurement (mass/volume)Ordered By: Asad Jamison on 07-12-2022 Urea nitrogen [Mass/Vol] 27 mg/dL 7-18 [facility] Thin prep Papanicolaou smear with manual screeningOrdered By: Asad Jamison on 07-12-2022 Thin prep Papanicolaou smear with manual screening 8 5-15 [facility] Absolute lymphocyte countOrd ered By: Asad Jamison on 06-28-2022 Lymphocytes Auto (Unsp spec) [#/Vol] 1.41 10*3/uL 0.83-4.51 [facility] Basophil percentageOrdered B y: Asad Jamison on 06-28-2022 Basophils/100 WBC (Bld) 1.7 % 0-1 [facility] Chloride [Moles/Vol] 108 mmol/L 98-107 [facility] Eosinophils/100 WBC (Bld) 6.8 % 0-5 [facility] Glucose [Mass/Vol] 117 mg/dL 74-106 [facility] Comment on above: Fasting Glucose resu lt from 100 to 125 mg/dL suggests IMPAIRED HOMEOSTASIS per A.D.A. criteria. Neutrophils (Bld) [#/Vol] 3.8 10*3/uL 2.0-7.7 [facility] Neutrophils/100 WBC (Bld) 56.9 % 47-70 [facility] Potassium [Moles/Vol] 4.0 mmol/L 3.5-5.1 [facility] Sodium [Moles/Vol] 142 mmol/L 136-145 [facility] WBC (Bld) [#/Vol] 6.7 10*3/uL 4.4-11.0 [facility] Blood erythrocytes count (nu mber/volume)Ordered By: Asad Jamison on 06-28-2022 RBC (Bld) [#/Vol] 4.72 10*6/uL 4.2-5.4 [facility] Blood hemoglobin measurement (mass/volume)Ordered By: Asad Jamison on 06-28-2022 Hemoglobin (Bld) [Mass/Vol] 12.8 g/dL 12.0-15.0 [facility] Blood lymphocytes/100 leukoc ytesOrdered By: Asad Jamison on 06-28-2022 Lymphocytes/100 WBC (Bld) 21.2 % 19-41 [facility] Blood monocytes/100 leukocyt esOrdered By: Asad Jamison on 06-28-2022 Monocytes/100 WBC (Bld) 12.5 % 0-10 [facility] Blood platelet mean volumeOr dered By: Asad Jamison on 06-28-2022 Platelet mean volume (Bld) [Entitic vol] 9.0 fL 6.2-12.0 [facility] Determination of erythrocyte mean corpuscular volume (MCV)Ordered By: Asad Jamison on 06-28-2022 MCV (RBC) [Entitic vol] 90.7 fL 81-99 [facility] Hematocrit Auto (Bld) [Volum e fraction]Ordered By: Asad Jamison on 06-28-2022 Hematocrit (Bld) [Volume fraction] 42.8 % 37-47 [facility] Laboratory - Chemistry and C hemistry - challengeOrdered By: Asad Jamison on 06-28-2022 CO2 [Moles/Vol] 24.0 mmol/L 21.0-32.0 [facility] Urea nitrogen/Creatinine [Mass ratio] 39.1 mg/mg 10-20 [facility] Laboratory - Hematology and Cell countsOrdered By: Asad Jamison on 06-28-2022 Erythrocyte distribution width (RBC) [Entitic vol] 48.6 fL 35.1-43.9 [facility] Erythrocyte distribution width (RBC) [Ratio] 14.6 % 11.6-14.6 [facility] Immature granulocytes/100 WBC (Bld) 0.900 % 0.0-0.9 [facility] Comment on above: IG% - Immature Granu locytes (promyelocytes, myelocytes and metamyelocytes) > 1% indicates that a LEFT SHIFT is Present. MCH (RBC) [Entitic mass] 27.1 pg 27.0-32.0 [facility] Nucleated RBC/100 WBC (Bld) [Ratio] 0 % 0-5 [facility] MCHC Auto (RBC) [Mass/Vol]Or dered By: Asad Jamison on 06-28-2022 MCHC (RBC) [Mass/Vol] 29.9 g/dL 32-36 [facility] No Panel InformationOrdered By: Asad Jamison on 06-28-2022 Estimated GFR (MDRD) Amer 115 mL/min >60 [facility] Comment on above: GFR Calc Estimated GFR (MDRD) Non-Af Amer 95 mL/min >60 [facility] Comment on above: Non- GFR Calc Platelets bldOrdered By: Gonzales Jamison on 06-28-2022 Platelets (Bld) [#/Vol] 481 10*3/uL 150-450 [facility] Serum or plasma calcium jj urement (mass/volume)Ordered By: Asad Jamison on 06-28-2022 Calcium [Mass/Vol] 9.4 mg/dL 8.5-10.1 [facility] Serum or plasma creatinine m easurement (mass/volume)Ordered By: Asad Jamison on 06-28-2022 Creatinine [Mass/Vol] 0.66 mg/dL 0.55-1.02 [facility] Comment on above: The validity of the calculated GFR & GFRAA in patients over 70 years has not been determined. Clinical correlation is essential. Serum or plasma urea nitroge n measurement (mass/volume)Ordered By: Asad Jamison on 06-28-2022 Urea nitrogen [Mass/Vol] 26 mg/dL 7-18 [facility] Thin prep Papanicolaou smear with manual screeningOrdered By: Asad Jamison on 06-28-2022 Thin prep Papanicolaou smear with manual screening 10 5-15 [facility] Absolute lymphocyte countOrd ered By: Asad Jamison on 06-14-2022 Lymphocytes Auto (Unsp spec) [#/Vol] 1.27 10*3/uL 0.83-4.51 [facility] Basophil percentageOrdered B y: Asad Jamison on 06-14-2022 Basophils/100 WBC (Bld) 1.3 % 0-1 [facility] Chloride [Moles/Vol] 111 mmol/L 98-107 [facility] Eosinophils/100 WBC (Bld) 3.9 % 0-5 [facility] Glucose [Mass/Vol] 123 mg/dL 74-106 [facility] Comment on above: Fasting Glucose resu lt from 100 to 125 mg/dL suggests IMPAIRED HOMEOSTASIS per A.D.A. criteria. Neutrophils (Bld) [#/Vol] 4.5 10*3/uL 2.0-7.7 [facility] Neutrophils/100 WBC (Bld) 63.0 % 47-70 [facility] Potassium [Moles/Vol] 4.2 mmol/L 3.5-5.1 [facility] Sodium [Moles/Vol] 143 mmol/L 136-145 [facility] WBC (Bld) [#/Vol] 7.2 10*3/uL 4.4-11.0 [facility] Blood erythrocytes count (nu mber/volume)Ordered By: Asad Jamison on 06-14-2022 RBC (Bld) [#/Vol] 4.60 10*6/uL 4.2-5.4 [facility] Blood hemoglobin measurement (mass/volume)Ordered By: Asad Jamison on 06-14-2022 Hemoglobin (Bld) [Mass/Vol] 12.8 g/dL 12.0-15.0 [facility] Blood lymphocytes/100 leukoc ytesOrdered By: Asad Jamison on 06-14-2022 Lymphocytes/100 WBC (Bld) 17.7 % 19-41 [facility] Blood monocytes/100 leukocyt esOrdered By: Asad Jamison on 06-14-2022 Monocytes/100 WBC (Bld) 13.4 % 0-10 [facility] Blood platelet mean volumeOr dered By: Asad Jamison on 06-14-2022 Platelet mean volume (Bld) [Entitic vol] 9.0 fL 6.2-12.0 [facility] Determination of erythrocyte mean corpuscular volume (MCV)Ordered By: Asad Jamison on 06-14-2022 MCV (RBC) [Entitic vol] 90.4 fL 81-99 [facility] Hematocrit Auto (Bld) [Volum e fraction]Ordered By: Asad Jamison on 06-14-2022 Hematocrit (Bld) [Volume fraction] 41.6 % 37-47 [facility] Laboratory - Chemistry and C hemistry - challengeOrdered By: Asad Jamison on 06-14-2022 CO2 [Moles/Vol] 26.0 mmol/L 21.0-32.0 [facility] Urea nitrogen/Creatinine [Mass ratio] 49.2 mg/mg 10-20 [facility] Laboratory - Hematology and Cell countsOrdered By: Asad Jamison on 06-14-2022 Erythrocyte distribution width (RBC) [Entitic vol] 49.1 fL 35.1-43.9 [facility] Erythrocyte distribution width (RBC) [Ratio] 14.7 % 11.6-14.6 [facility] Immature granulocytes/100 WBC (Bld) 0.700 % 0.0-0.9 [facility] Comment on above: IG% - Immature Granu locytes (promyelocytes, myelocytes and metamyelocytes) > 1% indicates that a LEFT SHIFT is Present. MCH (RBC) [Entitic mass] 27.8 pg 27.0-32.0 [facility] Nucleated RBC/100 WBC (Bld) [Ratio] 0 % 0-5 [facility] MCHC Auto (RBC) [Mass/Vol]Or dered By: Asad Jamison on 06-14-2022 MCHC (RBC) [Mass/Vol] 30.8 g/dL 32-36 [facility] No Panel InformationOrdered By: Asad Jamison on 06-14-2022 Estimated GFR (MDRD) Amer 118 mL/min >60 [facility] Comment on above: GFR Calc Estimated GFR (MDRD) Non-Af Amer 97 mL/min >60 [facility] Comment on above: Non- GFR Calc Platelets bldOrdered By: Gonzales Jamison on 06-14-2022 Platelets (Bld) [#/Vol] 536 10*3/uL 150-450 [facility] Serum or plasma calcium jj urement (mass/volume)Ordered By: Asad Jamison on 06-14-2022 Calcium [Mass/Vol] 9.5 mg/dL 8.5-10.1 [facility] Serum or plasma creatinine m easurement (mass/volume)Ordered By: Asad Jamison on 06-14-2022 Creatinine [Mass/Vol] 0.65 mg/dL 0.55-1.02 [facility] Comment on above: The validity of the calculated GFR & GFRAA in patients over 70 years has not been determined. Clinical correlation is essential. Serum or plasma urea nitroge n measurement (mass/volume)Ordered By: Asad Jamison on 06-14-2022 Urea nitrogen [Mass/Vol] 32 mg/dL 7-18 [facility] Thin prep Papanicolaou smear with manual screeningOrdered By: Asad Jamison on 06-14-2022 Thin prep Papanicolaou smear with manual screening 6 5-15 [facility] Basophil percentageOrdered B y: Breanne Ruiz on 06-03-2022 Chloride [Moles/Vol] 106 mmol/L 98-107 [facility] Glucose [Mass/Vol] 116 mg/dL 74-106 [facility] Comment on above: Fasting Glucose resu lt from 100 to 125 mg/dL suggests IMPAIRED HOMEOSTASIS per A.D.A. criteria. Potassium [Moles/Vol] 4.1 mmol/L 3.5-5.1 [facility] Sodium [Moles/Vol] 139 mmol/L 136-145 [facility] Laboratory - Chemistry and C hemistry - challengeOrdered By: Breanne Ruiz on 06-03-2022 CO2 [Moles/Vol] 26.0 mmol/L 21.0-32.0 [facility] Urea nitrogen/Creatinine [Mass ratio] 38.7 mg/mg 10- [facility] No Panel InformationOrdered By: Breanne Ruiz on 06-03-2022 Estimated GFR (MDRD) Amer 138 mL/min >60 [facility] Comment on above: GFR Calc Estimated GFR (MDRD) Non-Af Amer 114 mL/min >60 [facility] Comment on above: Non- GFR Calc Serum or plasma calcium jj urement (mass/volume)Ordered By: Breanne Ruiz on 06-03-2022 Calcium [Mass/Vol] 9.7 mg/dL 8.5-10.1 [facility] Serum or plasma creatinine m easurement (mass/volume)Ordered By: Breanne Ruiz on 06-03-2022 Creatinine [Mass/Vol] 0.57 mg/dL 0.55-1.02 [facility] Comment on above: The validity of the calculated GFR & GFRAA in patients over 70 years has not been determined. Clinical correlation is essential. Serum or plasma urea nitroge n measurement (mass/volume)Ordered By: Breanne Ruiz on 06-03-2022 Urea nitrogen [Mass/Vol] 22 mg/dL 7-18 [facility] Thin prep Papanicolaou smear with manual screeningOrdered By: adalbertobellflowercehtan Ruiz on 06-03-2022 Thin prep Papanicolaou smear with manual screening 7 5-15 [facility] Basophil percentageOrdered B y: vannessa Ruiz on 06-01-2022 Potassium [Moles/Vol] 3.9 mmol/L 3.5-5.1 [facility] Absolute lymphocyte countOrd ered By: Breanne Ruiz on 05-31-2022 Lymphocytes Auto (Unsp spec) [#/Vol] 1.39 10*3/uL 0.83-4.51 [facility] Basophil percentageOrdered B y: Abbeibellflowerchetan Ruiz on 05-31-2022 Basophils/100 WBC (Bld) 1.0 % 0-1 [facility] Chloride [Moles/Vol] 106 mmol/L 98-107 [facility] Eosinophils/100 WBC (Bld) 4.6 % 0-5 [facility] Glucose [Mass/Vol] 74 mg/dL 74-106 [facility] Neutrophils (Bld) [#/Vol] 7.3 10*3/uL 2.0-7.7 [facility] Neutrophils/100 WBC (Bld) 69.9 % 47-70 [facility] Potassium [Moles/Vol] 4.0 mmol/L 3.5-5.1 [facility] Sodium [Moles/Vol] 141 mmol/L 136-145 [facility] WBC (Bld) [#/Vol] 10.4 10*3/uL 4.4-11.0 [facility] Blood erythrocytes count (nu mber/volume)Ordered By: Breanne Ruiz on 05-31-2022 RBC (Bld) [#/Vol] 4.49 10*6/uL 4.2-5.4 [facility] Blood hemoglobin measurement (mass/volume)Ordered By: Breanne Ruiz on 05-31-2022 Hemoglobin (Bld) [Mass/Vol] 12.5 g/dL 12.0-15.0 [facility] Blood lymphocytes/100 leukoc ytesOrdered By: Breanne Ruiz on 05-31-2022 Lymphocytes/100 WBC (Bld) 13.3 % 19-41 [facility] Blood monocytes/100 leukocyt esOrdered By: vannessa Ruiz on 05-31-2022 Monocytes/100 WBC (Bld) 10.0 % 0-10 [facility] Blood platelet mean volumeOr dered By: Breanne Ruiz on 05-31-2022 Platelet mean volume (Bld) [Entitic vol] 8.8 fL 6.2-12.0 [facility] Culture, urineOrdered By: Elio Ruiz on 05-31-2022 Bacteria identified Cx Nom (U) Escherichia coli [facility] Determination of erythrocyte mean corpuscular volume (MCV)Ordered By: Breanne Ruiz on 05-31-2022 MCV (RBC) [Entitic vol] 91.3 fL 81-99 [facility] Hematocrit Auto (Bld) [Volum e fraction]Ordered By: Breanne Ruiz on 05-31-2022 Hematocrit (Bld) [Volume fraction] 41.0 % 37-47 [facility] Laboratory - Chemistry and C hemistry - challengeOrdered By: Breanne Ruiz on 05-31-2022 CO2 [Moles/Vol] 25.0 mmol/L 21.0-32.0 [facility] Urea nitrogen/Creatinine [Mass ratio] 43.0 mg/mg 10-20 [facility] Laboratory - Hematology and Cell countsOrdered By: Breanne Ruiz on 05-31-2022 Erythrocyte distribution width (RBC) [Entitic vol] 49.5 fL 35.1-43.9 [facility] Erythrocyte distribution width (RBC) [Ratio] 14.6 % 11.6-14.6 [facility] Immature granulocytes/100 WBC (Bld) 1.200 % 0.0-0.9 [facility] Comment on above: IG% - Immature Granu locytes (promyelocytes, myelocytes and metamyelocytes) > 1% indicates that a LEFT SHIFT is Present. MCH (RBC) [Entitic mass] 27.8 pg 27.0-32.0 [facility] Nucleated RBC/100 WBC (Bld) [Ratio] 0 % 0-5 [facility] MCHC Auto (RBC) [Mass/Vol]Or dered By: Breanne Ruiz on 05-31-2022 MCHC (RBC) [Mass/Vol] 30.5 g/dL 32-36 [facility] No Panel InformationOrdered By: Breanne Ruiz on 05-31-2022 Estimated GFR (MDRD) Amer 155 mL/min >60 [facility] Comment on above: GFR Calc Estimated GFR (MDRD) Non-Af Amer 128 mL/min >60 [facility] Comment on above: Non- GFR Calc Platelets bldOrdered By: Prashant Ruiz on 05-31-2022 Platelets (Bld) [#/Vol] 605 10*3/uL 150-450 [facility] Serum or plasma calcium jj urement (mass/volume)Ordered By: Breanne Ruiz on 05-31-2022 Calcium [Mass/Vol] 10.1 mg/dL 8.5-10.1 [facility] Serum or plasma creatinine m easurement (mass/volume)Ordered By: Breanne Ruiz on 05-31-2022 Creatinine [Mass/Vol] 0.51 mg/dL 0.55-1.02 [facility] Comment on above: The validity of the calculated GFR & GFRAA in patients over 70 years has not been determined. Clinical correlation is essential. Serum or plasma urea nitroge n measurement (mass/volume)Ordered By: Breanne Ruiz on 05-31-2022 Urea nitrogen [Mass/Vol] 22 mg/dL 7-18 [facility] Thin prep Papanicolaou smear with manual screeningOrdered By: Breanne Ruiz on 05-31-2022 Thin prep Papanicolaou smear with manual screening 10 5-15 [facility] Bilirubin Test strip Ql (U)O rdered By: Breanne Ruiz on 05-28-2022 Bilirubin Ql (U) Negative Negative [facility] Ketones Test strip Ql (U)Ord ered By: Breanne Ruiz on 05-28-2022 Ketones Ql (U) Negative Negative [facility] Nitrite Test strip Ql (U)Ord ered By: Breanne Ruiz on 05-28-2022 Nitrite Ql (U) Positive Negative [facility] Protein Test strip Ql (U)Ord ered By: Breanne Ruiz on 05-28-2022 Protein Ql (U) 30 mg/dl Negative [facility] Urine blood detectionOrdered By: Breanne Ruiz on 05-28-2022 RBC Ql (U) 25 /ul Negative [facility] Urine clarityOrdered By: Prashant Ruiz on 05-28-2022 Clarity (U) Cloudy Clear [facility] Urine color determinationOrd ered By: Breanne Ruiz on 05-28-2022 Color (U) Yellow Yellow [facility] Urine glucose detectionOrder ed By: Breanne Ruiz on 05-28-2022 Glucose Ql (U) Normal mg/dl Normal [facility] Urine leukocyte esterase det ection by dipstickOrdered By: Breanne Ruiz on 05-28-2022 Leukocyte esterase Test strip Ql (U) 500 /ul Negative [facility] Urine pHOrdered By: Bhupendra Ruiz on 05-28-2022 pH (U) 5.0 [pH] 5.0 - 8.0 [facility] Urine specific gravity measu rementOrdered By: Breanne Ruiz on 05-28-2022 Specific gravity (U) [Rel density] 1.025 1.002-1.030 [facility] Urobilinogen Auto test strip Ql (U)Ordered By: Breanne Ruiz on 05-28-2022 Urobilinogen Ql (U) Normal mg/dl Normal [facility] Absolute lymphocyte countOrd ered By: Breanne Ruiz on 05-27-2022 Lymphocytes Auto (Unsp spec) [#/Vol] 1.33 10*3/uL 0.83-4.51 [facility] Basophil percentageOrdered B y: Breanne Ruiz on 05-27-2022 Basophils/100 WBC (Bld) 0.4 % 0-1 [facility] Chloride [Moles/Vol] 106 mmol/L 98-107 [facility] Eosinophils/100 WBC (Bld) 0.1 % 0-5 [facility] Glucose [Mass/Vol] 196 mg/dL 74-106 [facility] Comment on above: Fasting Glucose resu lt greater than or equal to 126 mg/dL suggests DIABETES MELLITUS per A.D.A. criteria. Neutrophils (Bld) [#/Vol] 19.9 10*3/uL 2.0-7.7 [facility] Neutrophils/100 WBC (Bld) 85.7 % 47-70 [facility] Potassium [Moles/Vol] 3.3 mmol/L 3.5-5.1 [facility] Sodium [Moles/Vol] 139 mmol/L 136-145 [facility] WBC (Bld) [#/Vol] 23.2 10*3/uL 4.4-11.0 [facility] Blood erythrocytes count (nu mber/volume)Ordered By: Breanne Ruiz on 05-27-2022 RBC (Bld) [#/Vol] 4.62 10*6/uL 4.2-5.4 [facility] Blood hemoglobin measurement (mass/volume)Ordered By: Breanne Ruiz on 05-27-2022 Hemoglobin (Bld) [Mass/Vol] 12.9 g/dL 12.0-15.0 [facility] Blood lymphocytes/100 leukoc ytesOrdered By: Breanne Ruiz on 05-27-2022 Lymphocytes/100 WBC (Bld) 5.7 % 19-41 [facility] Blood manual differential co mment interpretation (narrative result)Ordered By: Breanne Ruiz on 05-27-2022 Manual differential comment Shaan (Bld) [Interp] COMMENT [facility] Comment on above: MONOCYTOSIS. Blood monocytes/100 leukocyt esOrdered By: Breanne Ruiz on 05-27-2022 Monocytes/100 WBC (Bld) 7.8 % 0-10 [facility] Blood platelet mean volumeOr dered By: Breanne Ruiz on 05-27-2022 Platelet mean volume (Bld) [Entitic vol] 8.6 fL 6.2-12.0 [facility] Determination of erythrocyte mean corpuscular volume (MCV)Ordered By: Breanne Ruiz on 05-27-2022 MCV (RBC) [Entitic vol] 88.1 fL 81-99 [facility] Hematocrit Auto (Bld) [Volum e fraction]Ordered By: Breanne Ruiz on 05-27-2022 Hematocrit (Bld) [Volume fraction] 40.7 % 37-47 [facility] Laboratory - Chemistry and C hemistry - challengeOrdered By: Abbiebellflowerchetan Ruiz on 05-27-2022 CO2 [Moles/Vol] 22.0 mmol/L 21.0-32.0 [facility] Urea nitrogen/Creatinine [Mass ratio] 23.1 mg/mg 10-20 [facility] Laboratory - Hematology and Cell countsOrdered By: Breanne Ruiz on 05-27-2022 Erythrocyte distribution width (RBC) [Entitic vol] 48.1 fL 35.1-43.9 [facility] Erythrocyte distribution width (RBC) [Ratio] 14.9 % 11.6-14.6 [facility] Immature granulocytes/100 WBC (Bld) 0.300 % 0.0-0.9 [facility] Comment on above: IG% - Immature Granu locytes (promyelocytes, myelocytes and metamyelocytes) > 1% indicates that a LEFT SHIFT is Present. MCH (RBC) [Entitic mass] 27.9 pg 27.0-32.0 [facility] Nucleated RBC/100 WBC (Bld) [Ratio] 0 % 0-5 [facility] MCHC Auto (RBC) [Mass/Vol]Or dered By: Breanne Ruiz on 05-27-2022 MCHC (RBC) [Mass/Vol] 31.7 g/dL 32-36 [facility] No Panel InformationOrdered By: Breanne Ruiz on 05-27-2022 Estimated GFR (MDRD) Amer 80 mL/min >60 [facility] Comment on above: GFR Calc Estimated GFR (MDRD) Non-Af Amer 66 mL/min >60 [facility] Comment on above: Non- GFR Calc Troponin I High Sensitivity 7 pg/mL 3.0-54.0 [facility] Comment on above: Please Note: New Adwoa t Units and Gender Specific Reference Ranges. For more information see Policy Stat Procedure [place] High Sensitivity Troponin (TNIH) and attachments. Platelets bldOrdered By: Prashant Ruiz on 05-27-2022 Platelets (Bld) [#/Vol] 468 10*3/uL 150-450 [facility] Review by pathologistOrdered By: Breanne Ruiz on 05-27-2022 Pathologist review Shaan (Unsp spec) [Interp] Reviewed [facility] Comment on above: Previous reported re sult: Kori isaacs Edited by: RGOJENNIFER on 05/31/22:1348Neutrophilic leukocytosis.Thrombocytosis.Clinical correlation necessary.Je Browne M.D. 05/31/22 AMENDED REPORT 05/31/22 1348 PATH REV previously reported as: Kori isaacs Serum or plasma calcium jj urement (mass/volume)Ordered By: Breanne Ruiz on 05-27-2022 Calcium [Mass/Vol] 9.4 mg/dL 8.5-10.1 [facility] Serum or plasma creatinine m easurement (mass/volume)Ordered By: Breanne Ruiz on 05-27-2022 Creatinine [Mass/Vol] 0.91 mg/dL 0.55-1.02 [facility] Comment on above: The validity of the calculated GFR & GFRAA in patients over 70 years has not been determined. Clinical correlation is essential. Serum or plasma urea nitroge n measurement (mass/volume)Ordered By: Breanne Ruiz on 05-27-2022 Urea nitrogen [Mass/Vol] 21 mg/dL 7-18 [facility] Thin prep Papanicolaou smear with manual screeningOrdered By: Breanne Ruiz on 05-27-2022 Thin prep Papanicolaou smear with manual screening 11 5-15 [facility] Absolute lymphocyte countOrd ered By: Breanne Ruiz on 05-17-2022 Lymphocytes Auto (Unsp spec) [#/Vol] 1.57 10*3/uL 0.83-4.51 [facility] Basophil percentageOrdered B y: Breanne Ruiz on 05-17-2022 Basophils/100 WBC (Bld) 1.3 % 0-1 [facility] Chloride [Moles/Vol] 110 mmol/L 98-107 [facility] Eosinophils/100 WBC (Bld) 5.6 % 0-5 [facility] Glucose [Mass/Vol] 109 mg/dL 74-106 [facility] Comment on above: Fasting Glucose resu lt from 100 to 125 mg/dL suggests IMPAIRED HOMEOSTASIS per A.D.A. criteria. Neutrophils (Bld) [#/Vol] 4.6 10*3/uL 2.0-7.7 [facility] Neutrophils/100 WBC (Bld) 60.7 % 47-70 [facility] Potassium [Moles/Vol] 4.0 mmol/L 3.5-5.1 [facility] Sodium [Moles/Vol] 144 mmol/L 136-145 [facility] WBC (Bld) [#/Vol] 7.6 10*3/uL 4.4-11.0 [facility] Blood erythrocytes count (nu mber/volume)Ordered By: Breanne Ruiz on 05-17-2022 RBC (Bld) [#/Vol] 4.79 10*6/uL 4.2-5.4 [facility] Blood hemoglobin measurement (mass/volume)Ordered By: Breanne Ruiz on 05-17-2022 Hemoglobin (Bld) [Mass/Vol] 13.0 g/dL 12.0-15.0 [facility] Blood lymphocytes/100 leukoc ytesOrdered By: Breanne Ruiz on 05-17-2022 Lymphocytes/100 WBC (Bld) 20.8 % 19-41 [facility] Blood monocytes/100 leukocyt esOrdered By: Breanne Ruiz on 05-17-2022 Monocytes/100 WBC (Bld) 11.2 % 0-10 [facility] Blood platelet mean volumeOr dered By: Breanne Ruiz on 05-17-2022 Platelet mean volume (Bld) [Entitic vol] 9.2 fL 6.2-12.0 [facility] Determination of erythrocyte mean corpuscular volume (MCV)Ordered By: Breanne Ruiz on 05-17-2022 MCV (RBC) [Entitic vol] 91.4 fL 81-99 [facility] Hematocrit Auto (Bld) [Volum e fraction]Ordered By: Breanne Ruiz on 05-17-2022 Hematocrit (Bld) [Volume fraction] 43.8 % 37-47 [facility] Laboratory - Chemistry and C hemistry - challengeOrdered By: Breanne Ruiz on 05-17-2022 CO2 [Moles/Vol] 26.0 mmol/L 21.0-32.0 [facility] Urea nitrogen/Creatinine [Mass ratio] 45.3 mg/mg 10-20 [facility] Laboratory - Hematology and Cell countsOrdered By: Breanne Ruiz on 05-17-2022 Erythrocyte distribution width (RBC) [Entitic vol] 50.4 fL 35.1-43.9 [facility] Erythrocyte distribution width (RBC) [Ratio] 15.0 % 11.6-14.6 [facility] Immature granulocytes/100 WBC (Bld) 0.400 % 0.0-0.9 [facility] Comment on above: IG% - Immature Granu locytes (promyelocytes, myelocytes and metamyelocytes) > 1% indicates that a LEFT SHIFT is Present. MCH (RBC) [Entitic mass] 27.1 pg 27.0-32.0 [facility] Nucleated RBC/100 WBC (Bld) [Ratio] 0 % 0-5 [facility] MCHC Auto (RBC) [Mass/Vol]Or dered By: Breanne Ruiz on 05-17-2022 MCHC (RBC) [Mass/Vol] 29.7 g/dL 32-36 [facility] No Panel InformationOrdered By: Breanne Ruiz on 05-17-2022 Estimated GFR (MDRD) Amer 116 mL/min >60 [facility] Comment on above: GFR Calc Estimated GFR (MDRD) Non-Af Amer 95 mL/min >60 [facility] Comment on above: Non- GFR Calc Platelets bldOrdered By: Prashantbeverly marsh Sara on 05-17-2022 Platelets (Bld) [#/Vol] 503 10*3/uL 150-450 [facility] Serum or plasma calcium jj urement (mass/volume)Ordered By: Breanne Ruiz on 05-17-2022 Calcium [Mass/Vol] 9.7 mg/dL 8.5-10.1 [facility] Serum or plasma creatinine m easurement (mass/volume)Ordered By: Breanne Ruiz on 05-17-2022 Creatinine [Mass/Vol] 0.66 mg/dL 0.55-1.02 [facility] Comment on above: The validity of the calculated GFR & GFRAA in patients over 70 years has not been determined. Clinical correlation is essential. Serum or plasma urea nitroge n measurement (mass/volume)Ordered By: Abbiebellflowerchetan Ruiz on 05-17-2022 Urea nitrogen [Mass/Vol] 30 mg/dL 7-18 [facility] Thin prep Papanicolaou smear with manual screeningOrdered By: Braenne Ruiz on 05-17-2022 Thin prep Papanicolaou smear with manual screening 8 5-15 [facility] Absolute lymphocyte countOrd ered By: Asad Jamison on 05-03-2022 Lymphocytes Auto (Unsp spec) [#/Vol] 1.95 10*3/uL 0.83-4.51 [facility] Basophil percentageOrdered B y: Asad Jamison on 05-03-2022 Basophils/100 WBC (Bld) 0.9 % 0-1 [facility] Chloride [Moles/Vol] 103 mmol/L 98-107 [facility] Eosinophils/100 WBC (Bld) 3.9 % 0-5 [facility] Glucose [Mass/Vol] 100 mg/dL 74-106 [facility] Comment on above: Fasting Glucose resu lt from 100 to 125 mg/dL suggests IMPAIRED HOMEOSTASIS per A.D.A. criteria. Neutrophils (Bld) [#/Vol] 6.6 10*3/uL 2.0-7.7 [facility] Neutrophils/100 WBC (Bld) 66.2 % 47-70 [facility] Potassium [Moles/Vol] 4.1 mmol/L 3.5-5.1 [facility] Comment on above: Moderate Hemolysis, Result may be falsely increased. Sodium [Moles/Vol] 139 mmol/L 136-145 [facility] WBC (Bld) [#/Vol] 10.0 10*3/uL 4.4-11.0 [facility] Blood erythrocytes count (nu mber/volume)Ordered By: Asad Jamison on 05-03-2022 RBC (Bld) [#/Vol] 4.77 10*6/uL 4.2-5.4 [facility] Blood hemoglobin measurement (mass/volume)Ordered By: Asad Jamison on 05-03-2022 Hemoglobin (Bld) [Mass/Vol] 13.2 g/dL 12.0-15.0 [facility] Blood lymphocytes/100 leukoc ytesOrdered By: Asad Jamison on 05-03-2022 Lymphocytes/100 WBC (Bld) 19.5 % 19-41 [facility] Blood monocytes/100 leukocyt esOrdered By: Asad Jamison on 05-03-2022 Monocytes/100 WBC (Bld) 8.9 % 0-10 [facility] Blood platelet mean volumeOr dered By: Asad Jamison on 05-03-2022 Platelet mean volume (Bld) [Entitic vol] 8.9 fL 6.2-12.0 [facility] Determination of erythrocyte mean corpuscular volume (MCV)Ordered By: Asad Jamison on 05-03-2022 MCV (RBC) [Entitic vol] 88.5 fL 81-99 [facility] Hematocrit Auto (Bld) [Volum e fraction]Ordered By: Asad Jamison on 05-03-2022 Hematocrit (Bld) [Volume fraction] 42.2 % 37-47 [facility] Laboratory - Chemistry and C hemistry - challengeOrdered By: Asad Jamison on 05-03-2022 CO2 [Moles/Vol] 25.0 mmol/L 21.0-32.0 [facility] Urea nitrogen/Creatinine [Mass ratio] 48.2 mg/mg 10-20 [facility] Laboratory - Hematology and Cell countsOrdered By: Asad Jamison on 05-03-2022 Erythrocyte distribution width (RBC) [Entitic vol] 48.7 fL 35.1-43.9 [facility] Erythrocyte distribution width (RBC) [Ratio] 15.0 % 11.6-14.6 [facility] Immature granulocytes/100 WBC (Bld) 0.600 % 0.0-0.9 [facility] Comment on above: IG% - Immature Granu locytes (promyelocytes, myelocytes and metamyelocytes) > 1% indicates that a LEFT SHIFT is Present. MCH (RBC) [Entitic mass] 27.7 pg 27.0-32.0 [facility] Nucleated RBC/100 WBC (Bld) [Ratio] 0 % 0-5 [facility] MCHC Auto (RBC) [Mass/Vol]Or dered By: Asad Jamison on 05-03-2022 MCHC (RBC) [Mass/Vol] 31.3 g/dL 32-36 [facility] No Panel InformationOrdered By: Asad Jamison on 05-03-2022 Estimated GFR (MDRD) Amer 129 mL/min >60 [facility] Comment on above: GFR Calc Estimated GFR (MDRD) Non-Af Amer 107 mL/min >60 [facility] Comment on above: Non- GFR Calc Platelets bldOrdered By: Gonzales Jamison on 05-03-2022 Platelets (Bld) [#/Vol] 488 10*3/uL 150-450 [facility] Serum or plasma calcium jj urement (mass/volume)Ordered By: Asad Jamison on 05-03-2022 Calcium [Mass/Vol] 9.4 mg/dL 8.5-10.1 [facility] Serum or plasma creatinine m easurement (mass/volume)Ordered By: Asad Jamison on 05-03-2022 Creatinine [Mass/Vol] 0.60 mg/dL 0.55-1.02 [facility] Comment on above: The validity of the calculated GFR & GFRAA in patients over 70 years has not been determined. Clinical correlation is essential. Serum or plasma urea nitroge n measurement (mass/volume)Ordered By: Asad Jamison on 05-03-2022 Urea nitrogen [Mass/Vol] 29 mg/dL 7-18 [facility] Thin prep Papanicolaou smear with manual screeningOrdered By: Asad Jamison on 05-03-2022 Thin prep Papanicolaou smear with manual screening 11 -15 [facility] Absolute lymphocyte countOrd ered By: Asad Jamison on 04-19-2022 Lymphocytes Auto (Unsp spec) [#/Vol] 1.80 10*3/uL 0.83-4.51 [facility] Basophil percentageOrdered B y: Asad Jamison on 04-19-2022 Basophils/100 WBC (Bld) 1.0 % 0-1 [facility] Chloride [Moles/Vol] 106 mmol/L 98-107 [facility] Eosinophils/100 WBC (Bld) 3.6 % 0-5 [facility] Glucose [Mass/Vol] 107 mg/dL 74-106 [facility] Comment on above: Fasting Glucose resu lt from 100 to 125 mg/dL suggests IMPAIRED HOMEOSTASIS per A.D.A. criteria. Neutrophils (Bld) [#/Vol] 4.6 10*3/uL 2.0-7.7 [facility] Neutrophils/100 WBC (Bld) 59.3 % 47-70 [facility] Potassium [Moles/Vol] 4.1 mmol/L 3.5-5.1 [facility] Sodium [Moles/Vol] 140 mmol/L 136-145 [facility] WBC (Bld) [#/Vol] 7.8 10*3/uL 4.4-11.0 [facility] Blood erythrocytes count (nu mber/volume)Ordered By: Asad Jamison on 04-19-2022 RBC (Bld) [#/Vol] 4.98 10*6/uL 4.2-5.4 [facility] Blood hemoglobin measurement (mass/volume)Ordered By: Asad Jamison on 04-19-2022 Hemoglobin (Bld) [Mass/Vol] 13.1 g/dL 12.0-15.0 [facility] Blood lymphocytes/100 leukoc ytesOrdered By: Asad Jamison on 04-19-2022 Lymphocytes/100 WBC (Bld) 23.1 % 19-41 [facility] Blood monocytes/100 leukocyt esOrdered By: Asad Jamison on 04-19-2022 Monocytes/100 WBC (Bld) 12.1 % 0-10 [facility] Blood platelet mean volumeOr dered By: Asad Jamison on 04-19-2022 Platelet mean volume (Bld) [Entitic vol] 8.9 fL 6.2-12.0 [facility] Determination of erythrocyte mean corpuscular volume (MCV)Ordered By: Asad Jamison on 04-19-2022 MCV (RBC) [Entitic vol] 88.0 fL 81-99 [facility] Hematocrit Auto (Bld) [Volum e fraction]Ordered By: Asad Jamison on 04-19-2022 Hematocrit (Bld) [Volume fraction] 43.8 % 37-47 [facility] Laboratory - Chemistry and C hemistry - challengeOrdered By: Asad Jamison on 04-19-2022 CO2 [Moles/Vol] 27.0 mmol/L 21.0-32.0 [facility] Urea nitrogen/Creatinine [Mass ratio] 43.6 mg/mg 10-20 [facility] Laboratory - Hematology and Cell countsOrdered By: Asad Jamison on 04-19-2022 Erythrocyte distribution width (RBC) [Entitic vol] 48.2 fL 35.1-43.9 [facility] Erythrocyte distribution width (RBC) [Ratio] 15.0 % 11.6-14.6 [facility] Immature granulocytes/100 WBC (Bld) 0.900 % 0.0-0.9 [facility] Comment on above: IG% - Immature Granu locytes (promyelocytes, myelocytes and metamyelocytes) > 1% indicates that a LEFT SHIFT is Present. MCH (RBC) [Entitic mass] 26.3 pg 27.0-32.0 [facility] Nucleated RBC/100 WBC (Bld) [Ratio] 0 % 0-5 [facility] MCHC Auto (RBC) [Mass/Vol]Or dered By: Asad Jamison on 04-19-2022 MCHC (RBC) [Mass/Vol] 29.9 g/dL 32-36 [facility] No Panel InformationOrdered By: Asad Jamison on 04-19-2022 Estimated GFR (MDRD) Amer 130 mL/min >60 [facility] Comment on above: GFR Calc Estimated GFR (MDRD) Non-Af Amer 108 mL/min >60 [facility] Comment on above: Non- GFR Calc Platelets bldOrdered By: Gonzales Jamison on 04-19-2022 Platelets (Bld) [#/Vol] 534 10*3/uL 150-450 [facility] Serum or plasma calcium jj urement (mass/volume)Ordered By: Asad Jamison on 04-19-2022 Calcium [Mass/Vol] 9.6 mg/dL 8.5-10.1 [facility] Serum or plasma creatinine m easurement (mass/volume)Ordered By: Asad Jamison on 04-19-2022 Creatinine [Mass/Vol] 0.60 mg/dL 0.55-1.02 [facility] Comment on above: The validity of the calculated GFR & GFRAA in patients over 70 years has not been determined. Clinical correlation is essential. Serum or plasma urea nitroge n measurement (mass/volume)Ordered By: Asad Jamison on 04-19-2022 Urea nitrogen [Mass/Vol] 26 mg/dL 7-18 [facility] Thin prep Papanicolaou smear with manual screeningOrdered By: Asad Jamison on 04-19-2022 Thin prep Papanicolaou smear with manual screening 7 5-15 [facility] Absolute lymphocyte countOrd ered By: Asad Jamison on 04-05-2022 Lymphocytes Auto (Unsp spec) [#/Vol] 1.31 10*3/uL 0.83-4.51 [facility] Basophil percentageOrdered B y: Asad Jamison on 04-05-2022 Basophils/100 WBC (Bld) 1.0 % 0-1 [facility] Chloride [Moles/Vol] 108 mmol/L 98-107 [facility] Eosinophils/100 WBC (Bld) 3.6 % 0-5 [facility] Glucose [Mass/Vol] 105 mg/dL 74-106 [facility] Comment on above: Fasting Glucose resu lt from 100 to 125 mg/dL suggests IMPAIRED HOMEOSTASIS per A.D.A. criteria. Neutrophils (Bld) [#/Vol] 6.1 10*3/uL 2.0-7.7 [facility] Neutrophils/100 WBC (Bld) 68.9 % 47-70 [facility] Potassium [Moles/Vol] 4.0 mmol/L 3.5-5.1 [facility] Sodium [Moles/Vol] 141 mmol/L 136-145 [facility] WBC (Bld) [#/Vol] 8.9 10*3/uL 4.4-11.0 [facility] Blood erythrocytes count (nu mber/volume)Ordered By: Asad Jamison on 04-05-2022 RBC (Bld) [#/Vol] 4.79 10*6/uL 4.2-5.4 [facility] Blood hemoglobin measurement (mass/volume)Ordered By: Asad Jamison on 04-05-2022 Hemoglobin (Bld) [Mass/Vol] 13.0 g/dL 12.0-15.0 [facility] Blood lymphocytes/100 leukoc ytesOrdered By: Asad Jamison on 04-05-2022 Lymphocytes/100 WBC (Bld) 14.7 % 19-41 [facility] Blood monocytes/100 leukocyt esOrdered By: Asad Jamison on 04-05-2022 Monocytes/100 WBC (Bld) 11.4 % 0-10 [facility] Blood platelet mean volumeOr dered By: Asad Jamison on 04-05-2022 Platelet mean volume (Bld) [Entitic vol] 8.7 fL 6.2-12.0 [facility] Determination of erythrocyte mean corpuscular volume (MCV)Ordered By: Asad Jamison on 04-05-2022 MCV (RBC) [Entitic vol] 87.9 fL 81-99 [facility] Hematocrit Auto (Bld) [Volum e fraction]Ordered By: Asad Jamison on 04-05-2022 Hematocrit (Bld) [Volume fraction] 42.1 % 37-47 [facility] Laboratory - Chemistry and C hemistry - challengeOrdered By: Asad Jamison on 04-05-2022 CO2 [Moles/Vol] 27.0 mmol/L 21.0-32.0 [facility] Urea nitrogen/Creatinine [Mass ratio] 44.3 mg/mg 10-20 [facility] Laboratory - Hematology and Cell countsOrdered By: Asad Jamison on 04-05-2022 Erythrocyte distribution width (RBC) [Entitic vol] 49.4 fL 35.1-43.9 [facility] Erythrocyte distribution width (RBC) [Ratio] 15.3 % 11.6-14.6 [facility] Immature granulocytes/100 WBC (Bld) 0.400 % 0.0-0.9 [facility] Comment on above: IG% - Immature Granu locytes (promyelocytes, myelocytes and metamyelocytes) > 1% indicates that a LEFT SHIFT is Present. MCH (RBC) [Entitic mass] 27.1 pg 27.0-32.0 [facility] Nucleated RBC/100 WBC (Bld) [Ratio] 0 % 0-5 [facility] MCHC Auto (RBC) [Mass/Vol]Or dered By: Asad Jamison on 04-05-2022 MCHC (RBC) [Mass/Vol] 30.9 g/dL 32-36 [facility] No Panel InformationOrdered By: Asad Jamison on 04-05-2022 Estimated GFR (MDRD) Amer 127 mL/min >60 [facility] Comment on above: GFR Calc Estimated GFR (MDRD) Non-Af Amer 105 mL/min >60 [facility] Comment on above: Non- GFR Calc Platelets bldOrdered By: Gonzales Jamison on 04-05-2022 Platelets (Bld) [#/Vol] 516 10*3/uL 150-450 [facility] Serum or plasma calcium jj urement (mass/volume)Ordered By: Asad Jamison on 04-05-2022 Calcium [Mass/Vol] 9.6 mg/dL 8.5-10.1 [facility] Serum or plasma creatinine m easurement (mass/volume)Ordered By: Asad Jamison on 04-05-2022 Creatinine [Mass/Vol] 0.61 mg/dL 0.55-1.02 [facility] Comment on above: The validity of the calculated GFR & GFRAA in patients over 70 years has not been determined. Clinical correlation is essential. Serum or plasma urea nitroge n measurement (mass/volume)Ordered By: Asad Jamison on 04-05-2022 Urea nitrogen [Mass/Vol] 27 mg/dL 7-18 [facility] Thin prep Papanicolaou smear with manual screeningOrdered By: Asad Jamison on 04-05-2022 Thin prep Papanicolaou smear with manual screening 6 5-15 [facility] Absolute lymphocyte countOrd ered By: Asad Jamison on 03-22-2022 Lymphocytes Auto (Unsp spec) [#/Vol] 1.60 10*3/uL 0.83-4.51 [facility] Basophil percentageOrdered B y: Asad Jamison on 03-22-2022 Basophils/100 WBC (Bld) 1.1 % 0-1 [facility] Chloride [Moles/Vol] 108 mmol/L 98-107 [facility] Eosinophils/100 WBC (Bld) 2.9 % 0-5 [facility] Glucose [Mass/Vol] 96 mg/dL 74-106 [facility] Neutrophils (Bld) [#/Vol] 5.1 10*3/uL 2.0-7.7 [facility] Neutrophils/100 WBC (Bld) 65.2 % 47-70 [facility] Potassium [Moles/Vol] 4.1 mmol/L 3.5-5.1 [facility] Sodium [Moles/Vol] 142 mmol/L 136-145 [facility] WBC (Bld) [#/Vol] 7.9 10*3/uL 4.4-11.0 [facility] Blood erythrocytes count (nu mber/volume)Ordered By: Asad Jamison on 03-22-2022 RBC (Bld) [#/Vol] 4.84 10*6/uL 4.2-5.4 [facility] Blood hemoglobin measurement (mass/volume)Ordered By: Asad Jamison on 03-22-2022 Hemoglobin (Bld) [Mass/Vol] 13.1 g/dL 12.0-15.0 [facility] Blood lymphocytes/100 leukoc ytesOrdered By: Asad Jamison on 03-22-2022 Lymphocytes/100 WBC (Bld) 20.3 % 19-41 [facility] Blood monocytes/100 leukocyt esOrdered By: Asad Jamison on 03-22-2022 Monocytes/100 WBC (Bld) 10.2 % 0-10 [facility] [facility] Blood platelet mean volumeOr dered By: Asad Jamison on 03-22-2022 Platelet mean volume (Bld) [Entitic vol] 9.1 fL 6.2-12.0 [facility] Determination of erythrocyte mean corpuscular volume (MCV)Ordered By: Asad Jamison on 03-22-2022 MCV (RBC) [Entitic vol] 87.8 fL 81-99 [facility] Hematocrit Auto (Bld) [Volum e fraction]Ordered By: Asad Jamison on 03-22-2022 Hematocrit (Bld) [Volume fraction] 42.5 % 37-47 [facility] Laboratory - Chemistry and C hemistry - challengeOrdered By: Asad Jamison on 03-22-2022 CO2 [Moles/Vol] 26.0 mmol/L 21.0-32.0 [facility] Urea nitrogen/Creatinine [Mass ratio] 34.4 mg/mg 10-20 [facility] Laboratory - Hematology and Cell countsOrdered By: Asad Jamison on 03-22-2022 Erythrocyte distribution width (RBC) [Entitic vol] 48.4 fL 35.1-43.9 [facility] Erythrocyte distribution width (RBC) [Ratio] 15.0 % 11.6-14.6 [facility] Immature granulocytes/100 WBC (Bld) 0.300 % 0.0-0.9 [facility] Comment on above: IG% - Immature Granu locytes (promyelocytes, myelocytes and metamyelocytes) > 1% indicates that a LEFT SHIFT is Present. MCH (RBC) [Entitic mass] 27.1 pg 27.0-32.0 [facility] Nucleated RBC/100 WBC (Bld) [Ratio] 0 % 0-5 [facility] MCHC Auto (RBC) [Mass/Vol]Or dered By: Asad Jamison on 03-22-2022 MCHC (RBC) [Mass/Vol] 30.8 g/dL 32-36 [facility] No Panel InformationOrdered By: Asad Jamison on 03-22-2022 Estimated GFR (MDRD) Amer 120 mL/min >60 [facility] Comment on above: GFR Calc Estimated GFR (MDRD) Non-Af Amer 99 mL/min >60 [facility] Comment on above: Non- GFR Calc Platelets bldOrdered By: Gonzales Jamison on 03-22-2022 Platelets (Bld) [#/Vol] 522 10*3/uL 150-450 [facility] Serum or plasma calcium jj urement (mass/volume)Ordered By: Asad Jamison on 03-22-2022 Calcium [Mass/Vol] 9.4 mg/dL 8.5-10.1 [facility] Serum or plasma creatinine m easurement (mass/volume)Ordered By: Asad Jamison on 03-22-2022 Creatinine [Mass/Vol] 0.64 mg/dL 0.55-1.02 [facility] Comment on above: The validity of the calculated GFR & GFRAA in patients over 70 years has not been determined. Clinical correlation is essential. Serum or plasma urea nitroge n measurement (mass/volume)Ordered By: Asad Jamison on 03-22-2022 Urea nitrogen [Mass/Vol] 22 mg/dL 7-18 [facility] Thin prep Papanicolaou smear with manual screeningOrdered By: Asad Jamison on 03-22-2022 Thin prep Papanicolaou smear with manual screening 8 5-15 [facility] Absolute lymphocyte countOrd ered By: Asad Jamison on 03-08-2022 Lymphocytes Auto (Unsp spec) [#/Vol] 1.49 10*3/uL 0.83-4.51 [facility] Basophil percentageOrdered B y: Asad Jamison on 03-08-2022 Basophils/100 WBC (Bld) 1.3 % 0-1 [facility] Chloride [Moles/Vol] 108 mmol/L 98-107 [facility] Eosinophils/100 WBC (Bld) 3.9 % 0-5 [facility] Glucose [Mass/Vol] 105 mg/dL 74-106 [facility] Comment on above: Fasting Glucose resu lt from 100 to 125 mg/dL suggests IMPAIRED HOMEOSTASIS per A.D.A. criteria. Neutrophils (Bld) [#/Vol] 4.3 10*3/uL 2.0-7.7 [facility] Neutrophils/100 WBC (Bld) 61.3 % 47-70 [facility] Potassium [Moles/Vol] 4.1 mmol/L 3.5-5.1 [facility] Sodium [Moles/Vol] 142 mmol/L 136-145 [facility] WBC (Bld) [#/Vol] 7.1 10*3/uL 4.4-11.0 [facility] Blood erythrocytes count (nu mber/volume)Ordered By: Asad Jamison on 03-08-2022 RBC (Bld) [#/Vol] 4.87 10*6/uL 4.2-5.4 [facility] Blood hemoglobin measurement (mass/volume)Ordered By: Asad Jamison on 03-08-2022 Hemoglobin (Bld) [Mass/Vol] 13.0 g/dL 12.0-15.0 [facility] Blood lymphocytes/100 leukoc ytesOrdered By: Asad Jamison on 03-08-2022 Lymphocytes/100 WBC (Bld) 21.0 % 19-41 [facility] Blood monocytes/100 leukocyt esOrdered By: Asad Jamison on 03-08-2022 Monocytes/100 WBC (Bld) 12.1 % 0-10 [facility] Blood platelet mean volumeOr dered By: Asad Jamison on 03-08-2022 Platelet mean volume (Bld) [Entitic vol] 8.9 fL 6.2-12.0 [facility] Determination of erythrocyte mean corpuscular volume (MCV)Ordered By: Asad Jamison on 03-08-2022 MCV (RBC) [Entitic vol] 87.9 fL 81-99 [facility] Hematocrit Auto (Bld) [Volum e fraction]Ordered By: Asad Jamison on 03-08-2022 Hematocrit (Bld) [Volume fraction] 42.8 % 37-47 [facility] Laboratory - Chemistry and C hemistry - challengeOrdered By: Asad Jamison on 03-08-2022 CO2 [Moles/Vol] 27.0 mmol/L 21.0-32.0 [facility] Urea nitrogen/Creatinine [Mass ratio] 47.1 mg/mg 10-20 [facility] Laboratory - Hematology and Cell countsOrdered By: Asad Jamison on 03-08-2022 Erythrocyte distribution width (RBC) [Entitic vol] 47.6 fL 35.1-43.9 [facility] Erythrocyte distribution width (RBC) [Ratio] 14.8 % 11.6-14.6 [facility] Immature granulocytes/100 WBC (Bld) 0.400 % 0.0-0.9 [facility] Comment on above: IG% - Immature Granu locytes (promyelocytes, myelocytes and metamyelocytes) > 1% indicates that a LEFT SHIFT is Present. MCH (RBC) [Entitic mass] 26.7 pg 27.0-32.0 [facility] Nucleated RBC/100 WBC (Bld) [Ratio] 0 % 0-5 [facility] MCHC Auto (RBC) [Mass/Vol]Or dered By: Asad Jamison on 03-08-2022 MCHC (RBC) [Mass/Vol] 30.4 g/dL 32-36 [facility] No Panel InformationOrdered By: Asad Jamison on 03-08-2022 Estimated GFR (MDRD) Amer 131 mL/min >60 [facility] Comment on above: GFR Calc Estimated GFR (MDRD) Non-Af Amer 108 mL/min >60 [facility] Comment on above: Non- GFR Calc Platelets bldOrdered By: Gonzales Jamison on 03-08-2022 Platelets (Bld) [#/Vol] 521 10*3/uL 150-450 [facility] Serum or plasma calcium jj urement (mass/volume)Ordered By: Asad Jamison on 03-08-2022 Calcium [Mass/Vol] 9.5 mg/dL 8.5-10.1 [facility] Serum or plasma creatinine m easurement (mass/volume)Ordered By: Asad Jamison on 03-08-2022 Creatinine [Mass/Vol] 0.59 mg/dL 0.55-1.02 [facility] Comment on above: The validity of the calculated GFR & GFRAA in patients over 70 years has not been determined. Clinical correlation is essential. Serum or plasma urea nitroge n measurement (mass/volume)Ordered By: Asad Jamison on 03-08-2022 Urea nitrogen [Mass/Vol] 28 mg/dL 7-18 [facility] Thin prep Papanicolaou smear with manual screeningOrdered By: Asad Jamison on 03-08-2022 Thin prep Papanicolaou smear with manual screening 7 5-15 [facility] Absolute lymphocyte countOrd ered By: Asad Jamison on 02-22-2022 Lymphocytes Auto (Unsp spec) [#/Vol] 1.48 10*3/uL 0.83-4.51 [facility] Basophil percentageOrdered B y: Asad Jamison on 02-22-2022 Basophils/100 WBC (Bld) 1.2 % 0-1 [facility] Chloride [Moles/Vol] 109 mmol/L 98-107 [facility] Eosinophils/100 WBC (Bld) 5.9 % 0-5 [facility] Glucose [Mass/Vol] 103 mg/dL 74-106 [facility] Comment on above: Fasting Glucose resu lt from 100 to 125 mg/dL suggests IMPAIRED HOMEOSTASIS per A.D.A. criteria. Neutrophils (Bld) [#/Vol] 4.1 10*3/uL 2.0-7.7 [facility] Neutrophils/100 WBC (Bld) 58.7 % 47-70 [facility] Potassium [Moles/Vol] 4.3 mmol/L 3.5-5.1 [facility] Sodium [Moles/Vol] 143 mmol/L 136-145 [facility] WBC (Bld) [#/Vol] 6.9 10*3/uL 4.4-11.0 [facility] Blood erythrocytes count (nu mber/volume)Ordered By: Asad Jamison on 02-22-2022 RBC (Bld) [#/Vol] 4.90 10*6/uL 4.2-5.4 [facility] Blood hemoglobin measurement (mass/volume)Ordered By: Asad Jamison on 02-22-2022 Hemoglobin (Bld) [Mass/Vol] 13.1 g/dL 12.0-15.0 [facility] Blood lymphocytes/100 leukoc ytesOrdered By: Asad Jamison on 02-22-2022 Lymphocytes/100 WBC (Bld) 21.4 % 19-41 [facility] Blood monocytes/100 leukocyt esOrdered By: Asad Jamison on 02-22-2022 Monocytes/100 WBC (Bld) 12.4 % 0-10 [facility] Blood platelet mean volumeOr dered By: Asad Jamison on 02-22-2022 Platelet mean volume (Bld) [Entitic vol] 9.0 fL 6.2-12.0 [facility] Determination of erythrocyte mean corpuscular volume (MCV)Ordered By: Asad Jamison on 02-22-2022 MCV (RBC) [Entitic vol] 88.2 fL 81-99 [facility] Hematocrit Auto (Bld) [Volum e fraction]Ordered By: Asad Jamison on 02-22-2022 Hematocrit (Bld) [Volume fraction] 43.2 % 37-47 [facility] Laboratory - Chemistry and C hemistry - challengeOrdered By: Asad Jamison on 02-22-2022 CO2 [Moles/Vol] 25.0 mmol/L 21.0-32.0 [facility] Urea nitrogen/Creatinine [Mass ratio] 48.9 mg/mg - [facility] Laboratory - Hematology and Cell countsOrdered By: Asad Jamison on 02-22-2022 Erythrocyte distribution width (RBC) [Entitic vol] 48.8 fL 35.1-43.9 [facility] Erythrocyte distribution width (RBC) [Ratio] 15.1 % 11.6-14.6 [facility] Immature granulocytes/100 WBC (Bld) 0.400 % 0.0-0.9 [facility] Comment on above: IG% - Immature Granu locytes (promyelocytes, myelocytes and metamyelocytes) > 1% indicates that a LEFT SHIFT is Present. MCH (RBC) [Entitic mass] 26.7 pg 27.0-32.0 [facility] Nucleated RBC/100 WBC (Bld) [Ratio] 0 % 0-5 [facility] MCHC Auto (RBC) [Mass/Vol]Or dered By: Asad Jamison on 02-22-2022 MCHC (RBC) [Mass/Vol] 30.3 g/dL 32-36 [facility] No Panel InformationOrdered By: Asad Jamison on 02-22-2022 Estimated GFR (MDRD) Amer 126 mL/min >60 [facility] Comment on above: GFR Calc Estimated GFR (MDRD) Non-Af Amer 104 mL/min >60 [facility] Comment on above: Non- GFR Calc Platelets bldOrdered By: Gonzales Jamison on 02-22-2022 Platelets (Bld) [#/Vol] 492 10*3/uL 150-450 [facility] Serum or plasma calcium jj urement (mass/volume)Ordered By: Asad Jamison on 02-22-2022 Calcium [Mass/Vol] 9.7 mg/dL 8.5-10.1 [facility] Serum or plasma creatinine m easurement (mass/volume)Ordered By: Asad Jamison on 02-22-2022 Creatinine [Mass/Vol] 0.61 mg/dL 0.55-1.02 [facility] Comment on above: The validity of the calculated GFR & GFRAA in patients over 70 years has not been determined. Clinical correlation is essential. Serum or plasma urea nitroge n measurement (mass/volume)Ordered By: Asad Jamison on 02-22-2022 Urea nitrogen [Mass/Vol] 30 mg/dL 7-18 [facility] Thin prep Papanicolaou smear with manual screeningOrdered By: Asad Jamison on 02-22-2022 Thin prep Papanicolaou smear with manual screening 9 5-15 [facility] Absolute lymphocyte counton 02-08-2022 Lymphocytes Auto (Unsp spec) [#/Vol] 1.37 10*3/uL 0.83-4.51 [facility] Work Phone: Basophil percentageon 2021 Basophils/100 WBC (Bld) 1.3 % 0-1 [facility] Work Phone: Chloride [Moles/Vol] 109 mmol/L 98-107 [facility] Work Phone: Eosinophils/100 WBC (Bld) 4.0 % 0-5 [facility] Work Phone: Glucose [Mass/Vol] 99 mg/dL 74-106 [facility] Work Phone: Neutrophils (Bld) [#/Vol] 4.1 10*3/uL 2.0-7.7 [facility] Work Phone: Neutrophils/100 WBC (Bld) 59.3 % 47-70 [facility] Work Phone: Potassium [Moles/Vol] 4.1 mmol/L 3.5-5.1 [facility] Work Phone: Sodium [Moles/Vol] 143 mmol/L 136-145 [facility] Work Phone: WBC (Bld) [#/Vol] 7.0 10*3/uL 4.4-11.0 [facility] Work Phone: Blood erythrocytes count (nu mber/volume)on 02-08-2022 RBC (Bld) [#/Vol] 5.00 10*6/uL 4.2-5.4 [facility] Work Phone: Blood hemoglobin measurement (mass/volume)on 02-08-2022 Hemoglobin (Bld) [Mass/Vol] 13.0 g/dL 12.0-15.0 [facility] Work Phone: Blood lymphocytes/100 leukoc yteson 02-08-2022 Lymphocytes/100 WBC (Bld) 19.7 % 19-41 [facility] Work Phone: [phone] Blood monocytes/100 leukocyt eson 02-08-2022 Monocytes/100 WBC (Bld) 15.4 % 0-10 [facility] Work Phone: [phone] Blood platelet mean volumeon 02-08-2022 Platelet mean volume (Bld) [Entitic vol] 8.6 fL 6.2-12.0 [facility] Work Phone: Determination of erythrocyte mean corpuscular volume (MCV)on 02-08-2022 MCV (RBC) [Entitic vol] 92.4 fL 81-99 [facility] Work Phone: [phone] Hematocrit Auto (Bld) [Volum e fraction]on 02-08-2022 Hematocrit (Bld) [Volume fraction] 46.2 % 37-47 [facility] Work Phone: Laboratory - Chemistry and C hemistry - challengeon 02-08-2022 CO2 [Moles/Vol] 24.0 mmol/L 21.0-32.0 [facility] Work Phone: Urea nitrogen/Creatinine [Mass ratio] 38.5 mg/mg 10-20 [facility] Work Phone: [phone] Laboratory - Hematology and Cell countson 02-08-2022 Erythrocyte distribution width (RBC) [Entitic vol] 51.8 fL 35.1-43.9 [facility] Work Phone: [phone] Erythrocyte distribution width (RBC) [Ratio] 15.3 % 11.6-14.6 [facility] Work Phone: [phone] Immature granulocytes/100 WBC (Bld) 0.300 % 0.0-0.9 [facility] Work Phone: Comment on above: IG% - Immature Granu locytes (promyelocytes, myelocytes and metamyelocytes) > 1% indicates that a LEFT SHIFT is Present. MCH (RBC) [Entitic mass] 26.0 pg 27.0-32.0 [facility] Work Phone: Nucleated RBC/100 WBC (Bld) [Ratio] 0 % 0-5 [facility] Work Phone: MCHC Auto (RBC) [Mass/Vol]on 02-08-2022 MCHC (RBC) [Mass/Vol] 28.1 g/dL 32-36 [facility] Work Phone: No Panel Informationon 02-08 Estimated GFR (MDRD) Amer 118 mL/min >60 [facility] Work Phone: Comment on above: GFR Calc Estimated GFR (MDRD) Non-Af Amer 98 mL/min >60 [facility] Work Phone: Comment on above: Non- GFR Calc Platelets bldon 02-08-2022 Platelets (Bld) [#/Vol] 504 10*3/uL 150-450 [facility] Work Phone: [phone] Serum or plasma calcium jj urement (mass/volume)on 02-08-2022 Calcium [Mass/Vol] 10.0 mg/dL 8.5-10.1 [facility] Work Phone: Serum or plasma creatinine m easurement (mass/volume)on 02-08-2022 Creatinine [Mass/Vol] 0.65 mg/dL 0.55-1.02 [facility] Work Phone: Comment on above: The validity of the calculated GFR & GFRAA in patients over 70 years has not been determined. Clinical correlation is essential. Serum or plasma urea nitroge n measurement (mass/volume)on 02-08-2022 Urea nitrogen [Mass/Vol] 25 mg/dL 7-18 [facility] Work Phone: [phone] Thin prep Papanicolaou smear with manual screeningon 02-08-2022 Thin prep Papanicolaou smear with manual screening 10 5-15 [facility] Work Phone: [phone] Absolute lymphocyte counton 01-25-2022 Lymphocytes Auto (Unsp spec) [#/Vol] 1.61 10*3/uL 0.83-4.51 [facility] Work Phone: Basophil percentageon 2021 Basophils/100 WBC (Bld) 1.6 % 0-1 [facility] Work Phone: Chloride [Moles/Vol] 110 mmol/L 98-107 [facility] Work Phone: Eosinophils/100 WBC (Bld) 3.6 % 0-5 [facility] Work Phone: Glucose [Mass/Vol] 109 mg/dL 74-106 [facility] Work Phone: Comment on above: Fasting Glucose resu lt from 100 to 125 mg/dL suggests IMPAIRED HOMEOSTASIS per A.D.A. criteria. Neutrophils (Bld) [#/Vol] 3.8 10*3/uL 2.0-7.7 [facility] Work Phone: Neutrophils/100 WBC (Bld) 55.5 % 47-70 [facility] Work Phone: Potassium [Moles/Vol] 4.0 mmol/L 3.5-5.1 [facility] Work Phone: Sodium [Moles/Vol] 142 mmol/L 136-145 [facility] Work Phone: WBC (Bld) [#/Vol] 6.9 10*3/uL 4.4-11.0 [facility] Work Phone: Blood erythrocytes count (nu mber/volume)on 01-25-2022 RBC (Bld) [#/Vol] 4.66 10*6/uL 4.2-5.4 [facility] Work Phone: Blood hemoglobin measurement (mass/volume)on 01-25-2022 Hemoglobin (Bld) [Mass/Vol] 12.5 g/dL 12.0-15.0 [facility] Work Phone: Blood lymphocytes/100 leukoc yteson 08-23-2022 Lymphocytes/100 WBC (Bld) 23.4 % 19-41 [facility] Work Phone: Blood monocytes/100 leukocyt eson 01-25-2022 Monocytes/100 WBC (Bld) 15.3 % 0-10 [facility] Work Phone: Blood platelet mean volumeon 01-25-2022 Platelet mean volume (Bld) [Entitic vol] 9.0 fL 6.2-12.0 [facility] Work Phone: Determination of erythrocyte mean corpuscular volume (MCV)on 01-25-2022 MCV (RBC) [Entitic vol] 88.6 fL 81-99 [facility] Work Phone: [phone] Hematocrit Auto (Bld) [Volum e fraction]on 01-25-2022 Hematocrit (Bld) [Volume fraction] 41.3 % 37-47 [facility] Work Phone: Laboratory - Chemistry and C hemistry - challengeon 01-25-2022 CO2 [Moles/Vol] 23.0 mmol/L 21.0-32.0 [facility] Work Phone: Urea nitrogen/Creatinine [Mass ratio] 38.3 mg/mg 10-20 [facility] Work Phone: Laboratory - Hematology and Cell countson 01-25-2022 Erythrocyte distribution width (RBC) [Entitic vol] 49.9 fL 35.1-43.9 [facility] Work Phone: [phone] Erythrocyte distribution width (RBC) [Ratio] 15.4 % 11.6-14.6 [facility] Work Phone: Immature granulocytes/100 WBC (Bld) 0.600 % 0.0-0.9 [facility] Work Phone: [phone] Comment on above: IG% - Immature Granu locytes (promyelocytes, myelocytes and metamyelocytes) > 1% indicates that a LEFT SHIFT is Present. MCH (RBC) [Entitic mass] 26.8 pg 27.0-32.0 [facility] Work Phone: Nucleated RBC/100 WBC (Bld) [Ratio] 0 % 0-5 [facility] Work Phone: MCHC Auto (RBC) [Mass/Vol]on 01-25-2022 MCHC (RBC) [Mass/Vol] 30.3 g/dL 32-36 [facility] Work Phone: No Panel Informationon 01-25 Estimated GFR (MDRD) Amer 103 mL/min >60 [facility] Work Phone: Comment on above: GFR Calc Estimated GFR (MDRD) Non-Af Amer 85 mL/min >60 [facility] Work Phone: Comment on above: Non- GFR Calc Platelets bldon 01-25-2022 Platelets (Bld) [#/Vol] 513 10*3/uL 150-450 [facility] Work Phone: Serum or plasma calcium jj urement (mass/volume)on 01-25-2022 Calcium [Mass/Vol] 9.6 mg/dL 8.5-10.1 [facility] Work Phone: Serum or plasma creatinine m easurement (mass/volume)on 01-25-2022 Creatinine [Mass/Vol] 0.73 mg/dL 0.55-1.02 [facility] Work Phone: Comment on above: The validity of the calculated GFR & GFRAA in patients over 70 years has not been determined. Clinical correlation is essential. Serum or plasma urea nitroge n measurement (mass/volume)on 01-25-2022 Urea nitrogen [Mass/Vol] 28 mg/dL 7-18 [facility] Work Phone: Thin prep Papanicolaou smear with manual screeningon 01-25-2022 Thin prep Papanicolaou smear with manual screening 9 5-15 [facility] Work Phone: Absolute lymphocyte counton 01-11-2022 Lymphocytes Auto (Unsp spec) [#/Vol] 1.57 10*3/uL 0.83-4.51 [facility] Work Phone: Basophil percentageon 2021 Basophils/100 WBC (Bld) 1.3 % 0-1 [facility] Work Phone: Chloride [Moles/Vol] 107 mmol/L 98-107 [facility] Work Phone: Eosinophils/100 WBC (Bld) 4.7 % 0-5 [facility] Work Phone: Glucose [Mass/Vol] 89 mg/dL 74-106 [facility] Work Phone: Neutrophils (Bld) [#/Vol] 3.5 10*3/uL 2.0-7.7 [facility] Work Phone: Neutrophils/100 WBC (Bld) 56.0 % 47-70 [facility] Work Phone: Potassium [Moles/Vol] 4.0 mmol/L 3.5-5.1 [facility] Work Phone: Sodium [Moles/Vol] 139 mmol/L 136-145 [facility] Work Phone: WBC (Bld) [#/Vol] 6.3 10*3/uL 4.4-11.0 [facility] Work Phone: Blood erythrocytes count (nu mber/volume)on 01-11-2022 RBC (Bld) [#/Vol] 4.71 10*6/uL 4.2-5.4 [facility] Work Phone: Blood hemoglobin measurement (mass/volume)on 01-11-2022 Hemoglobin (Bld) [Mass/Vol] 12.4 g/dL 12.0-15.0 [facility] Work Phone: Blood lymphocytes/100 leukoc yteson 01-11-2022 Lymphocytes/100 WBC (Bld) 24.8 % 19-41 [facility] Work Phone: Blood monocytes/100 leukocyt eson 01-11-2022 Monocytes/100 WBC (Bld) 12.7 % 0-10 [facility] Work Phone: Blood platelet mean volumeon 01-11-2022 Platelet mean volume (Bld) [Entitic vol] 8.8 fL 6.2-12.0 [facility] Work Phone: [phone] Determination of erythrocyte mean corpuscular volume (MCV)on 01-11-2022 MCV (RBC) [Entitic vol] 89.2 fL 81-99 [facility] Work Phone: [phone] Hematocrit Auto (Bld) [Volum e fraction]on 01-11-2022 Hematocrit (Bld) [Volume fraction] 42.0 % 37-47 [facility] Work Phone: [phone] Laboratory - Chemistry and C hemistry - challengeon 01-11-2022 CO2 [Moles/Vol] 26.0 mmol/L 21.0-32.0 [facility] Work Phone: [phone] Urea nitrogen/Creatinine [Mass ratio] 45.6 mg/mg 10-20 [facility] Work Phone: [phone] Laboratory - Hematology and Cell countson 01-11-2022 Erythrocyte distribution width (RBC) [Entitic vol] 51.2 fL 35.1-43.9 [facility] Work Phone: [phone] Erythrocyte distribution width (RBC) [Ratio] 15.6 % 11.6-14.6 [facility] Work Phone: [phone] Immature granulocytes/100 WBC (Bld) 0.500 % 0.0-0.9 [facility] Work Phone: [phone] Comment on above: IG% - Immature Granu locytes (promyelocytes, myelocytes and metamyelocytes) > 1% indicates that a LEFT SHIFT is Present. MCH (RBC) [Entitic mass] 26.3 pg 27.0-32.0 [facility] Work Phone: [phone] Nucleated RBC/100 WBC (Bld) [Ratio] 0 % 0-5 [facility] Work Phone: [phone] MCHC Auto (RBC) [Mass/Vol]on 01-11-2022 MCHC (RBC) [Mass/Vol] 29.5 g/dL 32-36 [facility] Work Phone: No Panel Informationon 01-11 Estimated GFR (MDRD) Amer 158 mL/min >60 [facility] Work Phone: Comment on above: GFR Calc Estimated GFR (MDRD) Non-Af Amer 131 mL/min >60 [facility] Work Phone: Comment on above: Non- GFR Calc Platelets bldon 01-11-2022 Platelets (Bld) [#/Vol] 496 10*3/uL 150-450 [facility] Work Phone: Serum or plasma calcium jj urement (mass/volume)on 01-11-2022 Calcium [Mass/Vol] 9.7 mg/dL 8.5-10.1 [facility] Work Phone: Serum or plasma creatinine m easurement (mass/volume)on 01-11-2022 Creatinine [Mass/Vol] 0.50 mg/dL 0.55-1.02 [facility] Work Phone: Comment on above: The validity of the calculated GFR & GFRAA in patients over 70 years has not been determined. Clinical correlation is essential. Serum or plasma urea nitroge n measurement (mass/volume)on 01-11-2022 Urea nitrogen [Mass/Vol] 23 mg/dL 7-18 [facility] Work Phone: Thin prep Papanicolaou smear with manual screeningon 01-11-2022 Thin prep Papanicolaou smear with manual screening 6 5-15 [facility] Work Phone: Absolute lymphocyte counton 12-28-2021 Lymphocytes Auto (Unsp spec) [#/Vol] 1.56 10*3/uL 0.83-4.51 [facility] Work Phone: Basophil percentageon 2021 Basophils/100 WBC (Bld) 1.1 % 0-1 [facility] Work Phone: Chloride [Moles/Vol] 106 mmol/L 98-107 [facility] Work Phone: Eosinophils/100 WBC (Bld) 3.4 % 0-5 [facility] Work Phone: Glucose [Mass/Vol] 93 mg/dL 74-106 [facility] Work Phone: Neutrophils (Bld) [#/Vol] 4.3 10*3/uL 2.0-7.7 [facility] Work Phone: Neutrophils/100 WBC (Bld) 61.0 % 47-70 [facility] Work Phone: Potassium [Moles/Vol] 3.7 mmol/L 3.5-5.1 [facility] Work Phone: Sodium [Moles/Vol] 139 mmol/L 136-145 [facility] Work Phone: WBC (Bld) [#/Vol] 7.0 10*3/uL 4.4-11.0 [facility] Work Phone: Blood erythrocytes count (nu mber/volume)on 12-28-2021 RBC (Bld) [#/Vol] 4.69 10*6/uL 4.2-5.4 [facility] Work Phone: Blood hemoglobin measurement (mass/volume)on 12-28-2021 Hemoglobin (Bld) [Mass/Vol] 12.6 g/dL 12.0-15.0 [facility] Work Phone: Blood lymphocytes/100 leukoc yteson 12-28-2021 Lymphocytes/100 WBC (Bld) 22.2 % 19-41 [facility] Work Phone: Blood monocytes/100 leukocyt eson 12-28-2021 Monocytes/100 WBC (Bld) 11.6 % 0-10 [facility] Work Phone: Blood platelet mean volumeon 12-28-2021 Platelet mean volume (Bld) [Entitic vol] 8.5 fL 6.2-12.0 [facility] Work Phone: Determination of erythrocyte mean corpuscular volume (MCV)on 12-28-2021 MCV (RBC) [Entitic vol] 90.2 fL 81-99 [facility] Work Phone: [phone] Hematocrit Auto (Bld) [Volum e fraction]on 12-28-2021 Hematocrit (Bld) [Volume fraction] 42.3 % 37-47 [facility] Work Phone: [phone] Laboratory - Chemistry and C hemistry - challengeon 12-28-2021 CO2 [Moles/Vol] 26.0 mmol/L 21.0-32.0 [facility] Work Phone: [phone] Urea nitrogen/Creatinine [Mass ratio] 34.9 mg/mg 10-20 [facility] Work Phone: [phone] Laboratory - Hematology and Cell countson 12-28-2021 Erythrocyte distribution width (RBC) [Entitic vol] 51.9 fL 35.1-43.9 [facility] Work Phone: [phone] Erythrocyte distribution width (RBC) [Ratio] 15.9 % 11.6-14.6 [facility] Work Phone: [phone] Immature granulocytes/100 WBC (Bld) 0.700 % 0.0-0.9 [facility] Work Phone: [phone] Comment on above: IG% - Immature Granu locytes (promyelocytes, myelocytes and metamyelocytes) > 1% indicates that a LEFT SHIFT is Present. MCH (RBC) [Entitic mass] 26.9 pg 27.0-32.0 [facility] Work Phone: [phone] Nucleated RBC/100 WBC (Bld) [Ratio] 0 % 0-5 [facility] Work Phone: [phone] MCHC Auto (RBC) [Mass/Vol]on 12-28-2021 MCHC (RBC) [Mass/Vol] 29.8 g/dL 32-36 [facility] Work Phone: [phone] No Panel Informationon 12-28 Estimated GFR (MDRD) Amer 129 mL/min >60 [facility] Work Phone: [phone] Comment on above: GFR Calc Estimated GFR (MDRD) Non-Af Amer 107 mL/min >60 [facility] Work Phone: Comment on above: Non- GFR Calc Platelets bldon 12-28-2021 Platelets (Bld) [#/Vol] 574 10*3/uL 150-450 [facility] Work Phone: Serum or plasma calcium jj urement (mass/volume)on 12-28-2021 Calcium [Mass/Vol] 9.7 mg/dL 8.5-10.1 [facility] Work Phone: Serum or plasma creatinine m easurement (mass/volume)on 12-28-2021 Creatinine [Mass/Vol] 0.60 mg/dL 0.55-1.02 [facility] Work Phone: Comment on above: The validity of the calculated GFR & GFRAA in patients over 70 years has not been determined. Clinical correlation is essential. Serum or plasma urea nitroge n measurement (mass/volume)on 12-28-2021 Urea nitrogen [Mass/Vol] 21 mg/dL 7-18 [facility] Work Phone: Thin prep Papanicolaou smear with manual screeningon 12-28-2021 Thin prep Papanicolaou smear with manual screening 7 5-15 [facility] Work Phone: Absolute lymphocyte counton 12-14-2021 Lymphocytes Auto (Unsp spec) [#/Vol] 1.34 10*3/uL 0.83-4.51 [facility] Work Phone: Basophil percentageon 2021 Basophils/100 WBC (Bld) 1.1 % 0-1 [facility] Work Phone: Chloride [Moles/Vol] 106 mmol/L 98-107 [facility] Work Phone: Eosinophils/100 WBC (Bld) 2.3 % 0-5 [facility] Work Phone: Glucose [Mass/Vol] 94 mg/dL 74-106 [facility] Work Phone: Neutrophils (Bld) [#/Vol] 6.7 10*3/uL 2.0-7.7 [facility] Work Phone: Neutrophils/100 WBC (Bld) 70.8 % 47-70 [facility] Work Phone: Potassium [Moles/Vol] 3.6 mmol/L 3.5-5.1 [facility] Work Phone: Sodium [Moles/Vol] 143 mmol/L 136-145 [facility] Work Phone: WBC (Bld) [#/Vol] 9.4 10*3/uL 4.4-11.0 [facility] Work Phone: Blood erythrocytes count (nu mber/volume)on 12-14-2021 RBC (Bld) [#/Vol] 4.55 10*6/uL 4.2-5.4 [facility] Work Phone: Blood hemoglobin measurement (mass/volume)on 12-14-2021 Hemoglobin (Bld) [Mass/Vol] 11.9 g/dL 12.0-15.0 [facility] Work Phone: Blood lymphocytes/100 leukoc yteson 12-14-2021 Lymphocytes/100 WBC (Bld) 14.2 % 19-41 [facility] Work Phone: Blood monocytes/100 leukocyt eson 12-14-2021 Monocytes/100 WBC (Bld) 11.0 % 0-10 [facility] Work Phone: Blood platelet mean volumeon 12-14-2021 Platelet mean volume (Bld) [Entitic vol] 9.0 fL 6.2-12.0 [facility] Work Phone: Determination of erythrocyte mean corpuscular volume (MCV)on 12-14-2021 MCV (RBC) [Entitic vol] 90.1 fL 81-99 [facility] Work Phone: Hematocrit Auto (Bld) [Volum e fraction]on 12-14-2021 Hematocrit (Bld) [Volume fraction] 41.0 % 37-47 [facility] Work Phone: [phone] Laboratory - Chemistry and C hemistry - challengeon 12-14-2021 CO2 [Moles/Vol] 30.0 mmol/L 21.0-32.0 [facility] Work Phone: [phone] Urea nitrogen/Creatinine [Mass ratio] 40.1 mg/mg 10-20 [facility] Work Phone: [phone] Laboratory - Hematology and Cell countson 12-14-2021 Erythrocyte distribution width (RBC) [Entitic vol] 53.1 fL 35.1-43.9 [facility] Work Phone: [phone] Erythrocyte distribution width (RBC) [Ratio] 15.9 % 11.6-14.6 [facility] Work Phone: [phone] Immature granulocytes/100 WBC (Bld) 0.600 % 0.0-0.9 [facility] Work Phone: [phone] Comment on above: IG% - Immature Granu locytes (promyelocytes, myelocytes and metamyelocytes) > 1% indicates that a LEFT SHIFT is Present. MCH (RBC) [Entitic mass] 26.2 pg 27.0-32.0 [facility] Work Phone: [phone] Nucleated RBC/100 WBC (Bld) [Ratio] 0 % 0-5 [facility] Work Phone: [phone] MCHC Auto (RBC) [Mass/Vol]on 12-14-2021 MCHC (RBC) [Mass/Vol] 29.0 g/dL 32-36 [facility] Work Phone: [phone] Panel Informationon 12-14 Estimated GFR (MDRD) Amer 144 mL/min >60 [facility] Work Phone: [phone] Comment on above: GFR Calc Estimated GFR (MDRD) Non-Af Amer 119 mL/min >60 [facility] Work Phone: [phone] Comment on above: Non- GFR Calc Platelets bldon 12-14-2021 Platelets (Bld) [#/Vol] 567 10*3/uL 150-450 [facility] Work Phone: Serum or plasma calcium jj urement (mass/volume)on 12-14-2021 Calcium [Mass/Vol] 9.6 mg/dL 8.5-10.1 [facility] Work Phone: Serum or plasma creatinine m easurement (mass/volume)on 12-14-2021 Creatinine [Mass/Vol] 0.55 mg/dL 0.55-1.02 [facility] Work Phone: Comment on above: The validity of the calculated GFR & GFRAA in patients over 70 years has not been determined. Clinical correlation is essential. Serum or plasma urea nitroge n measurement (mass/volume)on 12-14-2021 Urea nitrogen [Mass/Vol] 22 mg/dL 7-18 [facility] Work Phone: Thin prep Papanicolaou smear with manual screeningon 12-14-2021 Thin prep Papanicolaou smear with manual screening 7 5-15 [facility] Work Phone: Absolute lymphocyte counton 11-16-2021 Lymphocytes Auto (Unsp spec) [#/Vol] 1.38 10*3/uL 0.83-4.51 [facility] Work Phone: Basophil percentageon 2021 Basophils/100 WBC (Bld) 1.1 % 0-1 [facility] Work Phone: Chloride [Moles/Vol] 106 mmol/L 98-107 [facility] Work Phone: Eosinophils/100 WBC (Bld) 3.7 % 0-5 [facility] Work Phone: Glucose [Mass/Vol] 100 mg/dL 74-106 [facility] Work Phone: Comment on above: Fasting Glucose resu lt from 100 to 125 mg/dL suggests IMPAIRED HOMEOSTASIS per A.D.A. criteria. Neutrophils (Bld) [#/Vol] 4.5 10*3/uL 2.0-7.7 [facility] Work Phone: Neutrophils/100 WBC (Bld) 61.9 % 47-70 [facility] Work Phone: Potassium [Moles/Vol] 3.7 mmol/L 3.5-5.1 [facility] Work Phone: Sodium [Moles/Vol] 142 mmol/L 136-145 [facility] Work Phone: [phone] WBC (Bld) [#/Vol] 7.3 10*3/uL 4.4-11.0 [facility] Work Phone: [phone] Blood erythrocytes count (nu mber/volume)on 11-16-2021 RBC (Bld) [#/Vol] 4.38 10*6/uL 4.2-5.4 [facility] Work Phone: Blood hemoglobin measurement (mass/volume)on 11-16-2021 Hemoglobin (Bld) [Mass/Vol] 11.6 g/dL 12.0-15.0 [facility] Work Phone: [phone] Blood lymphocytes/100 leukoc yteson 11-16-2021 Lymphocytes/100 WBC (Bld) 18.9 % 19-41 [facility] Work Phone: Blood monocytes/100 leukocyt eson 11-16-2021 Monocytes/100 WBC (Bld) 13.0 % 0-10 [facility] Work Phone: Blood platelet mean volumeon 11-16-2021 Platelet mean volume (Bld) [Entitic vol] 8.5 fL 6.2-12.0 [facility] Work Phone: Determination of erythrocyte mean corpuscular volume (MCV)on 11-16-2021 MCV (RBC) [Entitic vol] 90.6 fL 81-99 [facility] Work Phone: Hematocrit Auto (Bld) [Volum e fraction]on 11-16-2021 Hematocrit (Bld) [Volume fraction] 39.7 % 37-47 [facility] Work Phone: Laboratory - Chemistry and C hemistry - challengeon 11-16-2021 CO2 [Moles/Vol] 30.0 mmol/L 21.0-32.0 [facility] Work Phone: [phone] Urea nitrogen/Creatinine [Mass ratio] 23.4 mg/mg 10-20 [facility] Work Phone: [phone] Laboratory - Hematology and Cell countson 11-16-2021 Erythrocyte distribution width (RBC) [Entitic vol] 54.2 fL 35.1-43.9 [facility] Work Phone: [phone] Erythrocyte distribution width (RBC) [Ratio] 16.2 % 11.6-14.6 [facility] Work Phone: [phone] Immature granulocytes/100 WBC (Bld) 1.400 % 0.0-0.9 [facility] Work Phone: [phone] Comment on above: IG% - Immature Granu locytes (promyelocytes, myelocytes and metamyelocytes) > 1% indicates that a LEFT SHIFT is Present. MCH (RBC) [Entitic mass] 26.5 pg 27.0-32.0 [facility] Work Phone: [phone] Nucleated RBC/100 WBC (Bld) [Ratio] 0 % 0-5 [facility] Work Phone: [phone] MCHC Auto (RBC) [Mass/Vol]on 11-16-2021 MCHC (RBC) [Mass/Vol] 29.2 g/dL 32-36 [facility] Work Phone: No Panel Informationon 11-16 Estimated GFR (MDRD) Amer 142 mL/min >60 [facility] Work Phone: [phone] Comment on above: GFR Calc Estimated GFR (MDRD) Non-Af Amer 117 mL/min >60 [facility] Work Phone: [phone] Comment on above: Non- GFR Calc Platelets bldon 11-16-2021 Platelets (Bld) [#/Vol] 584 10*3/uL 150-450 [facility] Work Phone: [phone] Serum or plasma calcium jj urement (mass/volume)on 11-16-2021 Calcium [Mass/Vol] 9.4 mg/dL 8.5-10.1 [facility] Work Phone: Serum or plasma creatinine m easurement (mass/volume)on 11-16-2021 Creatinine [Mass/Vol] 0.56 mg/dL 0.55-1.02 [facility] Work Phone: Comment on above: The validity of the calculated GFR & GFRAA in patients over 70 years has not been determined. Clinical correlation is essential. Serum or plasma urea nitroge n measurement (mass/volume)on 11-16-2021 Urea nitrogen [Mass/Vol] 13 mg/dL 7-18 [facility] Work Phone: Thin prep Papanicolaou smear with manual screeningon 11-16-2021 Thin prep Papanicolaou smear with manual screening 6 -15 [facility] Work Phone: Absolute lymphocyte counton 11-02-2021 Lymphocytes Auto (Unsp spec) [#/Vol] 1.38 10*3/uL 0.83-4.51 [facility] Work Phone: Basophil percentageon 2021 Basophils/100 WBC (Bld) 1.1 % 0-1 [facility] Work Phone: Chloride [Moles/Vol] 100 mmol/L 98-107 [facility] Work Phone: Eosinophils/100 WBC (Bld) 4.3 % 0-5 [facility] Work Phone: Glucose [Mass/Vol] 78 mg/dL 74-106 [facility] Work Phone: Neutrophils (Bld) [#/Vol] 6.8 10*3/uL 2.0-7.7 [facility] Work Phone: Neutrophils/100 WBC (Bld) 69.5 % 47-70 [facility] Work Phone: Potassium [Moles/Vol] 3.5 mmol/L 3.5-5.1 [facility] Work Phone: Sodium [Moles/Vol] 138 mmol/L 136-145 [facility] Work Phone: [phone] WBC (Bld) [#/Vol] 9.8 10*3/uL 4.4-11.0 [facility] Work Phone: [phone] Blood erythrocytes count (nu mber/volume)on 11-02-2021 RBC (Bld) [#/Vol] 4.58 10*6/uL 4.2-5.4 [facility] Work Phone: [phone] Blood hemoglobin measurement (mass/volume)on 11-02-2021 Hemoglobin (Bld) [Mass/Vol] 12.2 g/dL 12.0-15.0 [facility] Work Phone: [phone] Blood lymphocytes/100 leukoc yteson 11-02-2021 Lymphocytes/100 WBC (Bld) 14.1 % 19-41 [facility] Work Phone: [phone] Blood monocytes/100 leukocyt eson 11-02-2021 Monocytes/100 WBC (Bld) 9.1 % 0-10 [facility] Work Phone: [phone] Blood platelet mean volumeon 11-02-2021 Platelet mean volume (Bld) [Entitic vol] 8.2 fL 6.2-12.0 [facility] Work Phone: [phone] Determination of erythrocyte mean corpuscular volume (MCV)on 11-02-2021 MCV (RBC) [Entitic vol] 90.2 fL 81-99 [facility] Work Phone: [phone] Hematocrit Auto (Bld) [Volum e fraction]on 11-02-2021 Hematocrit (Bld) [Volume fraction] 41.3 % 37-47 [facility] Work Phone: [phone] Laboratory - Chemistry and C hemistry - challengeon 11-02-2021 CO2 [Moles/Vol] 31.0 mmol/L 21.0-32.0 [facility] Work Phone: [phone] Urea nitrogen/Creatinine [Mass ratio] 35.8 mg/mg 10-20 [facility] Work Phone: [phone] Laboratory - Hematology and Cell countson 11-02-2021 Erythrocyte distribution width (RBC) [Entitic vol] 51.6 fL 35.1-43.9 [facility] Work Phone: [phone] Erythrocyte distribution width (RBC) [Ratio] 15.7 % 11.6-14.6 [facility] Work Phone: [phone] Immature granulocytes/100 WBC (Bld) 1.900 % 0.0-0.9 [facility] Work Phone: [phone] Comment on above: IG% - Immature Granu locytes (promyelocytes, myelocytes and metamyelocytes) > 1% indicates that a LEFT SHIFT is Present. MCH (RBC) [Entitic mass] 26.6 pg 27.0-32.0 [facility] Work Phone: [phone] Nucleated RBC/100 WBC (Bld) [Ratio] 0 % 0-5 [facility] Work Phone: [phone] MCHC Auto (RBC) [Mass/Vol]on 11-02-2021 MCHC (RBC) [Mass/Vol] 29.5 g/dL 32-36 [facility] Work Phone: No Panel Informationon 11-02 Estimated GFR (MDRD) Amer 133 mL/min >60 [facility] Work Phone: [phone] Comment on above: GFR Calc Estimated GFR (MDRD) Non-Af Amer 110 mL/min >60 [facility] Work Phone: [phone] Comment on above: Non- GFR Calc Platelets bldon 11-02-2021 Platelets (Bld) [#/Vol] 545 10*3/uL 150-450 [facility] Work Phone: [phone] Serum or plasma calcium jj urement (mass/volume)on 11-02-2021 Calcium [Mass/Vol] 9.6 mg/dL 8.5-10.1 [facility] Work Phone: [phone] Serum or plasma creatinine m easurement (mass/volume)on 11-02-2021 Creatinine [Mass/Vol] 0.59 mg/dL 0.55-1.02 [facility] Work Phone: Comment on above: The validity of the calculated GFR & GFRAA in patients over 70 years has not been determined. Clinical correlation is essential. Serum or plasma urea nitroge n measurement (mass/volume)on 11-02-2021 Urea nitrogen [Mass/Vol] 21 mg/dL 7-18 [facility] Work Phone: Thin prep Papanicolaou smear with manual screeningon 11-02-2021 Thin prep Papanicolaou smear with manual screening 7 5-15 [facility] Work Phone: Absolute lymphocyte counton 10-25-2021 Lymphocytes Auto (Unsp spec) [#/Vol] 1.29 10*3/uL 0.83-4.51 [facility] Work Phone: Basophil percentageon 2021 Basophils/100 WBC (Bld) 0.8 % 0-1 [facility] Work Phone: Chloride [Moles/Vol] 106 mmol/L 98-107 [facility] Work Phone: Eosinophils/100 WBC (Bld) 2.0 % 0-5 [facility] Work Phone: Glucose [Mass/Vol] 106 mg/dL 74-106 [facility] Work Phone: Comment on above: Fasting Glucose resu lt from 100 to 125 mg/dL suggests IMPAIRED HOMEOSTASIS per A.D.A. criteria. Neutrophils (Bld) [#/Vol] 13.8 10*3/uL 2.0-7.7 [facility] Work Phone: Neutrophils/100 WBC (Bld) 79.4 % 47-70 [facility] Work Phone: Potassium [Moles/Vol] 4.3 mmol/L 3.5-5.1 [facility] Work Phone: Comment on above: Slight Hemolysis, Re sult may be falsely increased. Sodium [Moles/Vol] 137 mmol/L 136-145 [facility] Work Phone: WBC (Bld) [#/Vol] 17.3 10*3/uL 4.4-11.0 [facility] Work Phone: [phone] Blood erythrocytes count (nu mber/volume)on 10-25-2021 RBC (Bld) [#/Vol] 4.91 10*6/uL 4.2-5.4 [facility] Work Phone: [phone] Blood hemoglobin measurement (mass/volume)on 10-25-2021 Hemoglobin (Bld) [Mass/Vol] 13.4 g/dL 12.0-15.0 [facility] Work Phone: [phone] Blood lymphocytes/100 leukoc yteson 10-25-2021 Lymphocytes/100 WBC (Bld) 7.5 % 19-41 [facility] Work Phone: [phone] Blood monocytes/100 leukocyt eson 10-25-2021 Monocytes/100 WBC (Bld) 7.9 % 0-10 [facility] Work Phone: [phone] Blood platelet mean volumeon 10-25-2021 Platelet mean volume (Bld) [Entitic vol] 8.6 fL 6.2-12.0 [facility] Work Phone: [phone] Determination of erythrocyte mean corpuscular volume (MCV)on 10-25-2021 MCV (RBC) [Entitic vol] 87.8 fL 81-99 [facility] Work Phone: [phone] Hematocrit Auto (Bld) [Volum e fraction]on 10-25-2021 Hematocrit (Bld) [Volume fraction] 43.1 % 37-47 [facility] Work Phone: [phone] Laboratory - Chemistry and C hemistry - challengeon 10-25-2021 CO2 [Moles/Vol] 24.0 mmol/L 21.0-32.0 [facility] Work Phone: [phone] Urea nitrogen/Creatinine [Mass ratio] 18.2 mg/mg 10-20 [facility] Work Phone: [phone] Laboratory - Hematology and Cell countson 10-25-2021 Erythrocyte distribution width (RBC) [Entitic vol] 49.2 fL 35.1-43.9 [facility] Work Phone: [phone] Erythrocyte distribution width (RBC) [Ratio] 15.5 % 11.6-14.6 [facility] Work Phone: [phone] Immature granulocytes/100 WBC (Bld) 2.400 % 0.0-0.9 [facility] Work Phone: [phone] Comment on above: IG% - Immature Granu locytes (promyelocytes, myelocytes and metamyelocytes) > 1% indicates that a LEFT SHIFT is Present. MCH (RBC) [Entitic mass] 27.3 pg 27.0-32.0 [facility] Work Phone: [phone] Nucleated RBC/100 WBC (Bld) [Ratio] 0 % 0-5 [facility] Work Phone: [phone] MCHC Auto (RBC) [Mass/Vol]on 10-25-2021 MCHC (RBC) [Mass/Vol] 31.1 g/dL 32-36 [facility] Work Phone: No Panel Informationon 10-25 Estimated GFR (MDRD) Amer 84 mL/min >60 [facility] Work Phone: Comment on above: GFR Calc Estimated GFR (MDRD) Non-Af Amer 69 mL/min >60 [facility] Work Phone: Comment on above: Non- GFR Calc Platelets bldon 10-25-2021 Platelets (Bld) [#/Vol] 614 10*3/uL 150-450 [facility] Work Phone: [phone] Serum or plasma calcium jj urement (mass/volume)on 10-25-2021 Calcium [Mass/Vol] 8.9 mg/dL 8.5-10.1 [facility] Work Phone: [phone] Serum or plasma creatinine m easurement (mass/volume)on 10-25-2021 Creatinine [Mass/Vol] 0.88 mg/dL 0.55-1.02 [facility] Work Phone: [phone] Comment on above: The validity of the calculated GFR & GFRAA in patients over 70 years has not been determined. Clinical correlation is essential. Serum or plasma urea nitroge n measurement (mass/volume)on 10-25-2021 Urea nitrogen [Mass/Vol] 16 mg/dL 7-18 [facility] Work Phone: Thin prep Papanicolaou smear with manual screeningon 10-25-2021 Thin prep Papanicolaou smear with manual screening 7 5-15 [facility] Work Phone: Absolute lymphocyte counton 10-18-2021 Lymphocytes Auto (Unsp spec) [#/Vol] 2.05 10*3/uL 0.83-4.51 [facility] Work Phone: Basophil percentageon 2021 Basophil percentage Not Reportable [facility] Work Phone: Chloride [Moles/Vol] 97 mmol/L 98-107 [facility] Work Phone: Glucose [Mass/Vol] 120 mg/dL 74-106 [facility] Work Phone: Comment on above: Fasting Glucose resu lt from 100 to 125 mg/dL suggests IMPAIRED HOMEOSTASIS per A.D.A. criteria. Neutrophils (Bld) [#/Vol] 12.6 10*3/uL 2.0-7.7 [facility] Work Phone: Potassium [Moles/Vol] 4.7 mmol/L 3.5-5.1 [facility] Work Phone: Sodium [Moles/Vol] 131 mmol/L 136-145 [facility] Work Phone: WBC (Bld) [#/Vol] 18.6 10*3/uL 4.4-11.0 [facility] Work Phone: Bilirubin Test strip Ql (U)o n 10-18-2021 Bilirubin Ql (U) Negative Negative [facility] Work Phone: Blood eosinophils/100 leukoc yteson 10-18-2021 Eosinophils/100 WBC (Bld) 2 % 0-5 [facility] Work Phone: Blood erythrocytes count (nu mber/volume)on 10-18-2021 RBC (Bld) [#/Vol] 4.24 10*6/uL 4.2-5.4 [facility] Work Phone: Blood hemoglobin measurement (mass/volume)on 10-18-2021 Hemoglobin (Bld) [Mass/Vol] 11.6 g/dL 12.0-15.0 [facility] Work Phone: Blood lymphocytes/100 leukoc yteson 10-18-2021 Lymphocytes/100 WBC (Bld) 11 % 19-41 [facility] Work Phone: Blood metamyelocytes/100 papa kocyteson 10-18-2021 Metamyelocytes/100 WBC (Bld) 6 % 0-1 [facility] Work Phone: Blood monocytes/100 leukocyt eson 10-18-2021 Monocytes/100 WBC (Bld) 8 % 0-10 [facility] Work Phone: Blood platelet adequacy dete ction by light microscopyon 10-18-2021 Platelets LM Ql (Bld) MOD INC ADEQ [facility] Work Phone: Blood platelet mean volumeon 10-18-2021 Platelet mean volume (Bld) [Entitic vol] 8.6 fL 6.2-12.0 [facility] Work Phone: Blood promyelocytes/100 leuk ocyteson 10-18-2021 Promyelocytes/100 WBC (Bld) 1 % 0-0 [facility] Work Phone: Blood segmented neutrophils/ 100 leukocyteson 10-18-2021 Segmented neutrophils/100 WBC (Bld) 68 % 47-70 [facility] Work Phone: Culture, urineon 10-18-2021 Bacteria identified Cx Nom (U) Mixed Gram Pos & Gram Neg Org [facility] Work Phone: Bacteria identified Cx Nom (U) Yeast [facility] Work Phone: Determination of erythrocyte mean corpuscular volume (MCV)on 10-18-2021 MCV (RBC) [Entitic vol] 89.6 fL 81-99 [facility] Work Phone: [phone] Hematocrit Auto (Bld) [Volum e fraction]on 10-18-2021 Hematocrit (Bld) [Volume fraction] 38.0 % 37-47 [facility] Work Phone: [phone] Ketones Test strip Ql (U)on 10-18-2021 Ketones Ql (U) Negative Negative [facility] Work Phone: [phone] Laboratory - Chemistry and C hemistry - challengeon 10-18-2021 CO2 [Moles/Vol] 24.0 mmol/L 21.0-32.0 [facility] Work Phone: [phone] Urea nitrogen/Creatinine [Mass ratio] 49.9 mg/mg 10-20 [facility] Work Phone: [phone] Laboratory - Hematology and Cell countson 10-18-2021 Erythrocyte distribution width (RBC) [Entitic vol] 48.5 fL 35.1-43.9 [facility] Work Phone: [phone] Erythrocyte distribution width (RBC) [Ratio] 14.9 % 11.6-14.6 [facility] Work Phone: [phone] MCH (RBC) [Entitic mass] 27.4 pg 27.0-32.0 [facility] Work Phone: [phone] Myelocytes/100 WBC (Bld) 4 % 0-0 [facility] Work Phone: [phone] MCHC Auto (RBC) [Mass/Vol]on 10-18-2021 MCHC (RBC) [Mass/Vol] 30.5 g/dL 32-36 [facility] Work Phone: [phone] Nitrite Test strip Ql (U)on 10-18-2021 Nitrite Ql (U) Negative Negative [facility] Work Phone: No Panel Informationon 10-18 Estimated GFR (MDRD) Amer 129 mL/min >60 [facility] Work Phone: Comment on above: GFR Calc Estimated GFR (MDRD) Non-Af Amer 107 mL/min >60 [facility] Work Phone: [phone] Comment on above: Non- GFR Calc Platelets bldon 10-18-2021 Platelets (Bld) [#/Vol] 561 10*3/uL 150-450 [facility] Work Phone: [phone] Protein Test strip Ql (U)on 10-18-2021 Protein Ql (U) 15 mg/dl Negative [facility] Work Phone: RBC morphologyon 10-18-2021 RBC morphology finding Nom (Bld) NORM C+C NORMAL NORM C&C [facility] Work Phone: Review by pathologiston 10-03 Pathologist review Shaan (Unsp spec) [Interp] Reviewed [facility] Work Phone: Comment on above: Previous reported re sult: Kori isaacs Edited by: JACQUES on 10/19/21:1241Leukocytosis with Neutrophilic left shift. Thrombocytosis.Clinical correlation necessary.Je Browne M.D. 10/19/21 AMENDED REPORT 10/19/21 1241 PATH REV previously reported as: Kori isaacs Serum or plasma calcium jj urement (mass/volume)on 10-18-2021 Calcium [Mass/Vol] 9.6 mg/dL 8.5-10.1 [facility] Work Phone: [phone] Serum or plasma creatinine m easurement (mass/volume)on 10-18-2021 Creatinine [Mass/Vol] 0.60 mg/dL 0.55-1.02 [facility] Work Phone: [phone] Comment on above: The validity of the calculated GFR & GFRAA in patients over 70 years has not been determined. Clinical correlation is essential. Serum or plasma urea nitroge n measurement (mass/volume)on 10-18-2021 Urea nitrogen [Mass/Vol] 30 mg/dL 7-18 [facility] Work Phone: [phone] Thin prep Papanicolaou smear with manual screeningon 10-18-2021 Thin prep Papanicolaou smear with manual screening 10 5-15 [facility] Work Phone: Total cell counton 2 Cells counted Molgen (Bld/Tiss) [#] 100 MANUAL DIFF [facility] Work Phone: Urine blood detectionon 10-03 RBC Ql (U) Negative Negative [facility] Work Phone: Urine clarityon 10-18-2021 Clarity (U) Clear Clear [facility] Work Phone: Urine color determinationon 10-18-2021 Color (U) Yellow Yellow [facility] Work Phone: Urine glucose detectionon Glucose Ql (U) Normal mg/dl Normal [facility] Work Phone: Urine leukocyte esterase det ection by dipstickon 10-18-2021 Leukocyte esterase Test strip Ql (U) Negative Negative [facility] Work Phone: Urine pHon 10-18-2021 pH (U) 6.0 [pH] 5.0 - 8.0 [facility] Work Phone: Urine specific gravity measu rementon 10-18-2021 Specific gravity (U) [Rel density] 1.015 1.002-1.030 [facility] Work Phone: Urobilinogen Auto test strip Ql (U)on 10-18-2021 Urobilinogen Ql (U) Normal mg/dl Normal [facility] Work Phone: Absolute lymphocyte counton 10-11-2021 Lymphocytes Auto (Unsp spec) [#/Vol] 1.28 10*3/uL 0.83-4.51 [facility] Work Phone: Basophil percentageon 2021 Basophils/100 WBC (Bld) 0.5 % 0-1 [facility] Work Phone: Bilirubin [Mass/Vol] 0.40 mg/dL 0.20-1.00 [facility] Work Phone: Comment on above: For patients on eltr ombopag therapy, use of Dimension [place] TBIL is not recommended. Chloride [Moles/Vol] 102 mmol/L 98-107 [facility] Work Phone: Eosinophils/100 WBC (Bld) 3.5 % 0-5 [facility] Work Phone: [phone] Glucose [Mass/Vol] 130 mg/dL 74-106 [facility] Work Phone: Comment on above: Fasting Glucose resu lt greater than or equal to 126 mg/dL suggests DIABETES MELLITUS per A.D.A. criteria. Neutrophils (Bld) [#/Vol] 10.0 10*3/uL 2.0-7.7 [facility] Work Phone: Neutrophils/100 WBC (Bld) 74.6 % 47-70 [facility] Work Phone: Potassium [Moles/Vol] 4.0 mmol/L 3.5-5.1 [facility] Work Phone: Protein [Mass/Vol] 6.3 g/dL 6.4-8.2 [facility] Work Phone: Sodium [Moles/Vol] 137 mmol/L 136-145 [facility] Work Phone: WBC (Bld) [#/Vol] 13.4 10*3/uL 4.4-11.0 [facility] Work Phone: Blood erythrocytes count (nu mber/volume)on 10-11-2021 RBC (Bld) [#/Vol] 4.57 10*6/uL 4.2-5.4 [facility] Work Phone: Blood hemoglobin measurement (mass/volume)on 10-11-2021 Hemoglobin (Bld) [Mass/Vol] 12.4 g/dL 12.0-15.0 [facility] Work Phone: Blood lymphocytes/100 leukoc yteson 10-11-2021 Lymphocytes/100 WBC (Bld) 9.6 % 19-41 [facility] Work Phone: Blood monocytes/100 leukocyt eson 10-11-2021 Monocytes/100 WBC (Bld) 9.0 % 0-10 [facility] Work Phone: Blood platelet mean volumeon 10-11-2021 Platelet mean volume (Bld) [Entitic vol] 9.2 fL 6.2-12.0 [facility] Work Phone: Determination of erythrocyte mean corpuscular volume (MCV)on 10-11-2021 MCV (RBC) [Entitic vol] 90.2 fL 81-99 [facility] Work Phone: Hematocrit Auto (Bld) [Volum e fraction]on 10-11-2021 Hematocrit (Bld) [Volume fraction] 41.2 % 37-47 [facility] Work Phone: Laboratory - Chemistry and C hemistry - challengeon 10-11-2021 ALP [Catalytic activity/Vol] 79 U/L 45-117 [facility] Work Phone: ALT [Catalytic activity/Vol] 120 U/L 13-56 [facility] Work Phone: CO2 [Moles/Vol] 27.0 mmol/L 21.0-32.0 [facility] Work Phone: Globulin (S) [Mass/Vol] 4.5 g/dL 2.2-4.2 [facility] Work Phone: Urea nitrogen/Creatinine [Mass ratio] 64.6 mg/mg 10-20 [facility] Work Phone: Laboratory - Hematology and Cell countson 10-11-2021 Erythrocyte distribution width (RBC) [Entitic vol] 47.8 fL 35.1-43.9 [facility] Work Phone: Erythrocyte distribution width (RBC) [Ratio] 14.5 % 11.6-14.6 [facility] Work Phone: Immature granulocytes/100 WBC (Bld) 2.800 % 0.0-0.9 [facility] Work Phone: Comment on above: IG% - Immature Granu locytes (promyelocytes, myelocytes and metamyelocytes) > 1% indicates that a LEFT SHIFT is Present. MCH (RBC) [Entitic mass] 27.1 pg 27.0-32.0 [facility] Work Phone: Nucleated RBC/100 WBC (Bld) [Ratio] 0 % 0-5 [facility] Work Phone: [phone] MCHC Auto (RBC) [Mass/Vol]on 10-11-2021 MCHC (RBC) [Mass/Vol] 30.1 g/dL 32-36 [facility] Work Phone: No Panel Informationon 10-11 Estimated GFR (MDRD) Amer 168 mL/min >60 [facility] Work Phone: Comment on above: GFR Calc Estimated GFR (MDRD) Non-Af Amer 139 mL/min >60 [facility] Work Phone: [phone] Comment on above: Non- GFR Calc Platelets bldon 10-11-2021 Platelets (Bld) [#/Vol] 369 10*3/uL 150-450 [facility] Work Phone: [phone] Serum or plasma albumin jj urement (mass/volume)on 10-11-2021 Albumin [Mass/Vol] 1.8 g/dL 3.2-5.0 [facility] Work Phone: [phone] Serum or plasma albumin/glob ulin mass ratioon 10-11-2021 Albumin/Globulin [Mass ratio] 0.4 {ratio} 0.9-2.4 [facility] Work Phone: [phone] Serum or plasma calcium jj urement (mass/volume)on 10-11-2021 Calcium [Mass/Vol] 8.9 mg/dL 8.5-10.1 [facility] Work Phone: [phone] Serum or plasma creatinine m easurement (mass/volume)on 10-11-2021 Creatinine [Mass/Vol] 0.48 mg/dL 0.55-1.02 [facility] Work Phone: Comment on above: The validity of the calculated GFR & GFRAA in patients over 70 years has not been determined. Clinical correlation is essential. Serum or plasma urea nitroge n measurement (mass/volume)on 10-11-2021 Urea nitrogen [Mass/Vol] 31 mg/dL 7-18 [facility] Work Phone: Thin prep Papanicolaou smear with manual screeningon 10-11-2021 Thin prep Papanicolaou smear with manual screening 55 U/L 15-37 [facility] Work Phone: Thin prep Papanicolaou smear with manual screening 8 5-15 [facility] Work Phone: Absolute lymphocyte counton 09-28-2021 Lymphocytes Auto (Unsp spec) [#/Vol] 1.32 10*3/uL 0.83-4.51 [facility] Work Phone: Basophil percentageon 2021 Basophils/100 WBC (Bld) 0.5 % 0-1 [facility] Work Phone: Chloride [Moles/Vol] 106 mmol/L 98-107 [facility] Work Phone: Eosinophils/100 WBC (Bld) 0.1 % 0-5 [facility] Work Phone: Glucose [Mass/Vol] 115 mg/dL 74-106 [facility] Work Phone: Comment on above: Fasting Glucose resu lt from 100 to 125 mg/dL suggests IMPAIRED HOMEOSTASIS per A.D.A. criteria. Neutrophils (Bld) [#/Vol] 11.5 10*3/uL 2.0-7.7 [facility] Work Phone: Neutrophils/100 WBC (Bld) 77.5 % 47-70 [facility] Work Phone: Potassium [Moles/Vol] 4.0 mmol/L 3.5-5.1 [facility] Work Phone: Sodium [Moles/Vol] 138 mmol/L 136-145 [facility] Work Phone: WBC (Bld) [#/Vol] 14.8 10*3/uL 4.4-11.0 [facility] Work Phone: Blood erythrocytes count (nu mber/volume)on 09-28-2021 RBC (Bld) [#/Vol] 5.25 10*6/uL 4.2-5.4 [facility] Work Phone: Blood hemoglobin measurement (mass/volume)on 09-28-2021 Hemoglobin (Bld) [Mass/Vol] 14.7 g/dL 12.0-15.0 [facility] Work Phone: Blood lymphocytes/100 leukoc yteson 09-28-2021 Lymphocytes/100 WBC (Bld) 8.9 % 19-41 [facility] Work Phone: Blood monocytes/100 leukocyt eson 09-28-2021 Monocytes/100 WBC (Bld) 8.6 % 0-10 [facility] Work Phone: Blood platelet mean volumeon 09-28-2021 Platelet mean volume (Bld) [Entitic vol] 9.1 fL 6.2-12.0 [facility] Work Phone: Determination of erythrocyte mean corpuscular volume (MCV)on 09-28-2021 MCV (RBC) [Entitic vol] 88.8 fL 81-99 [facility] Work Phone: Glucose Glucometer (BldC) [M ass/Vol]on 09-28-2021 Glucose [Mass/Vol] 188 mg/dL 74-106 [facility] Work Phone: Comment on above: MANAGEMENT OF PATIEN T CARE PER NURSING PROTOCOL Hematocrit Auto (Bld) [Volum e fraction]on 09-28-2021 Hematocrit (Bld) [Volume fraction] 46.6 % 37-47 [facility] Work Phone: Laboratory - Chemistry and C hemistry - challengeon 09-28-2021 CO2 [Moles/Vol] 24.0 mmol/L 21.0-32.0 [facility] Work Phone: [phone] Urea nitrogen/Creatinine [Mass ratio] 41.0 mg/mg 10-20 [facility] Work Phone: [phone] Laboratory - Hematology and Cell countson 09-28-2021 Erythrocyte distribution width (RBC) [Entitic vol] 43.8 fL 35.1-43.9 [facility] Work Phone: [phone] Erythrocyte distribution width (RBC) [Ratio] 13.5 % 11.6-14.6 [facility] Work Phone: [phone] Immature granulocytes/100 WBC (Bld) 4.400 % 0.0-0.9 [facility] Work Phone: [phone] Comment on above: IG% - Immature Granu locytes (promyelocytes, myelocytes and metamyelocytes) > 1% indicates that a LEFT SHIFT is Present. MCH (RBC) [Entitic mass] 28.0 pg 27.0-32.0 [facility] Work Phone: [phone] Nucleated RBC/100 WBC (Bld) [Ratio] 0 % 0-5 [facility] Work Phone: [phone] MCHC Auto (RBC) [Mass/Vol]on 09-28-2021 MCHC (RBC) [Mass/Vol] 31.5 g/dL 32-36 [facility] Work Phone: [phone] Panel Informationon 09-28 Estimated Creatinine Clearance Calc 92.08 ml/min [facility] Work Phone: [phone] Estimated GFR (MDRD) Amer 147 mL/min >60 [facility] Work Phone: [phone] Comment on above: GFR Calc Estimated GFR (MDRD) Non-Af Amer 122 mL/min >60 [facility] Work Phone: [phone] Comment on above: Non- GFR Calc Platelets bldon 09-28-2021 Platelets (Bld) [#/Vol] 490 10*3/uL 150-450 [facility] Work Phone: [phone] Serum or plasma calcium jj urement (mass/volume)on 09-28-2021 Calcium [Mass/Vol] 9.2 mg/dL 8.5-10.1 [facility] Work Phone: Serum or plasma creatinine m easurement (mass/volume)on 09-28-2021 Creatinine [Mass/Vol] 0.54 mg/dL 0.55-1.02 [facility] Work Phone: Comment on above: The validity of the calculated GFR & GFRAA in patients over 70 years has not been determined. Clinical correlation is essential. Serum or plasma urea nitroge n measurement (mass/volume)on 09-28-2021 Urea nitrogen [Mass/Vol] 22 mg/dL 7-18 [facility] Work Phone: Thin prep Papanicolaou smear with manual screeningon 09-28-2021 Thin prep Papanicolaou smear with manual screening 8 5-15 [facility] Work Phone: Blood lymphocytes/100 leukoc yteson 09-26-2021 Lymphocytes/100 WBC (Bld) 7 % 19-41 [facility] Work Phone: [phone] Blood monocytes/100 leukocyt eson 09-26-2021 Monocytes/100 WBC (Bld) 15 % 0-10 [facility] Work Phone: [phone] Blood platelet adequacy dete ction by light microscopyon 09-26-2021 Platelets LM Ql (Bld) MKD INC ADEQ [facility] Work Phone: [phone] Blood segmented neutrophils/ 100 leukocyteson 09-26-2021 Segmented neutrophils/100 WBC (Bld) 77 % 47-70 [facility] Work Phone: Laboratory - Hematology and Cell countson 09-26-2021 Myelocytes/100 WBC (Bld) 1 % 0-0 [facility] Work Phone: [phone] RBC morphologyon 09-26-2021 RBC morphology finding Nom (Bld) NORM C+C NORMAL NORM C&C [facility] Work Phone: Review by pathologiston 09-04 Pathologist review Shaan (Unsp spec) [Interp] Reviewed [facility] Work Phone: Comment on above: Previous reported re sult: Kori isaacs Edited by: RGOOD on 09/27/21:1017Neutrophilic leukocytosis with left shift. PolycythemiaThrombocytosis.Clinical correlation necessary.Je Browne M.D. 09/27/21 AMENDED REPORT 09/27/21 1017 PATH REV previously reported as: October ferny Total cell counton Cells counted Molgen (Bld/Tiss) [#] 100 MANUAL DIFF [facility] Work Phone: Blood band neutrophil count as percentage of total leukocyteson 09-25-2021 Band form neutrophils/100 WBC (Bld) 1 % 0-5 [facility] Work Phone: Blood metamyelocytes/100 papa kocyteson 09-25-2021 Metamyelocytes/100 WBC (Bld) 3 % 0-1 [facility] Work Phone: Blood promyelocytes/100 leuk ocyteson 09-25-2021 Promyelocytes/100 WBC (Bld) 1 % 0-0 [facility] Work Phone: Basophil percentageon 2021 Basophil percentage 1 % 0-5 [facility] Work Phone: No Panel Informationon 09-22 D-Dimer Quantitative (PE/DVT) 0.56 FEU/ug/m 0.27-0.49 [facility] Work Phone: Comment on above: D-Dimer ELEVATED (>0 .49): Additional studies and clinicalassessments are indicated to conclude diagnosis of:Deep Vein Thrombosis (DVT) or Pulmonary Embolism (PE)CRITICAL VALUE VERIFIED. CALLED TO YVONNE PONCE (U)09/22/21 1110 Aren Castaneda.RESULTS READ BACK BY SAME. Blood manual differential co mment interpretation (narrative result)on 09-21-2021 Manual differential comment Shaan (Bld) [Interp] SCANNED [facility] Work Phone: Basophil percentageon 2021 Bilirubin [Mass/Vol] 0.30 mg/dL 0.20-1.00 [facility] Work Phone: Comment on above: For patients on eltr ombopag therapy, use of Dimension [place] TBIL is not recommended. Protein [Mass/Vol] 5.7 g/dL 6.4-8.2 [facility] Work Phone: Laboratory - Chemistry and C hemistry - challengeon 09-20-2021 ALP [Catalytic activity/Vol] 52 U/L 45-117 [facility] Work Phone: [phone] ALT [Catalytic activity/Vol] 28 U/L 13-56 [facility] Work Phone: [phone] Globulin (S) [Mass/Vol] 3.2 g/dL 2.2-4.2 [facility] Work Phone: [phone] Serum or plasma albumin jj urement (mass/volume)on 09-20-2021 Albumin [Mass/Vol] 2.5 g/dL 3.2-5.0 [facility] Work Phone: Serum or plasma albumin/glob ulin mass ratioon 09-20-2021 Albumin/Globulin [Mass ratio] 0.8 {ratio} 0.9-2.4 [facility] Work Phone: Thin prep Papanicolaou smear with manual screeningon 09-20-2021 Thin prep Papanicolaou smear with manual screening 24 U/L 15-37 [facility] Work Phone: Basophil percentageon 2021 Basophil percentage 2.5 mg/dL 2.5-4.9 [facility] Work Phone: [phone] Laboratory - Chemistry and C hemistry - challengeon 09-19-2021 Magnesium [Mass/Vol] 2.1 mg/dL 1.6-2.6 [facility] Work Phone: No Panel Informationon 09-19 Thyroid Stimulating Hormone (TSH) 0.74 uIU/mL 0.358-3.74 [facility] Work Phone: Bronchoalveolar lavage cultu re with Gram stainon 09-18-2021 Respiratory Culture Negative [facility] Work Phone: Gram stain for investigation of transfusion reactionon 09-18-2021 Microscopic observation Gram stain Nom (Unsp spec) [facility] Work Phone: No Panel Informationon 09-18 Streptococcus pneumoniae Antigen (M [facility] Work Phone: Serum or plasma C reactive p rotein measurement (mass/volume)on 09-18-2021 CRP [Mass/Vol] 172.00 mg/L 0.0-3.0 [facility] Work Phone: Comment on above: C-Reactive Protein ( CRP) provides useful information for thediagnosis, therapy and monitoring of inflammatory processesand associated diseases. For the evaluation of Relative Riskfor Cardiovascular Disease, a High Sensitivity CRP (HSCRP)should be ordered. Vancomycin troughon 09-19-19 Vancomycin trough [Mass/Vol] 14.1 ug/mL 5.0-15.0 [facility] Work Phone: Comment on above: VANCOMYCIN STANDARED DRUG THERAPY TROUGH LEVEL: 5.0 - 15.0 mg/L VANCOMYCIN HIGH INTENSITY THERAPY TROUGH LEVEL: 15.0 - 20.0 mg/L High Intensity therapy recommended for serious lifethreatening infections include:- Vgqxxebroa-Fiaduspoprsi-Dcvqvowwk (Ventilator/Healtcare Associated)-Sepsis PLEASE CONTACT PHARMACY SERVICES (#[id number]) FOR INTERPRETATIONOF RESULTS. Assessment of wrist artery p atency prior to arterial punctureon 09-17-2021 Arterial patency Wrist artery --pre arterial puncture Positive [facility] Work Phone: [phone] Base excesson 09-17-2021 Base excess Calc (BldV) [Moles/Vol] -2 mmol/L -2-2 [facility] Work Phone: [phone] Basophil percentageon 2021 Basophil percentage 21.8 mmol/L 22-26 [facility] Work Phone: [phone] Basophils/100 WBC (Bld) 88 % 95-99 [facility] Work Phone: [phone] CO2 (BldA) [Partial pressure ]on 09-17-2021 CO2 (Bld) [Partial pressure] 31.7 mm[Hg] 35-45 [facility] Work Phone: No Panel Informationon 09-17 Bedside Blood Gas PEEP 8 [facility] Work Phone: Blood Gas Oxygen Percent 100 [facility] Work Phone: Blood Gas Sample Site L Radial [facility] Work Phone: Blood Gas Specimen Type ART [facility] Work Phone: Blood Gas Total CO2 23 mmol/L [facility] Work Phone: Oxygen Delivery Device BiPAP [facility] Work Phone: Oxygen (BldA) [Partial press ure]on 09-17-2021 Oxygen (Bld) [Partial pressure] 51 mmHG 75-100 [facility] Work Phone: pH measurementon 09-17-2021 pH (Unsp spec) 7.45 [pH] 7.35-7.45 [facility] Work Phone: Absolute lymphocyte counton 09-16-2021 Lymphocytes Auto (Unsp spec) [#/Vol] 0.70 10*3/uL 0.83-4.51 [facility] Work Phone: Basophil percentageon 2021 Lactate [Moles/Vol] 1.8 mmol/L 0.4-2.0 [facility] Work Phone: Basophil percentage 0 SEEN /hpf 0-5 [facility] Work Phone: Lactate [Moles/Vol] 2.2 mmol/L 0.4-2.0 [facility] Work Phone: Comment on above: Critical Result(s) C alled at: 14:10:01 09/16/2021 by: Miriam Grijalva. Results read back by same. Bilirubin [Mass/Vol] 0.20 mg/dL 0.20-1.00 [facility] Work Phone: Comment on above: For patients on eltr ombopag therapy, use of Dimension [place] TBIL is not recommended. Chloride [Moles/Vol] 109 mmol/L 98-107 [facility] Work Phone: Glucose [Mass/Vol] 141 mg/dL 74-106 [facility] Work Phone: Comment on above: Fasting Glucose resu lt greater than or equal to 126 mg/dL suggests DIABETES MELLITUS per A.D.A. criteria. Potassium [Moles/Vol] 3.7 mmol/L 3.5-5.1 [facility]: Protein [Mass/Vol] 6.9 g/dL 6.4-8.2 [facility] Work Phone: Sodium [Moles/Vol] 141 mmol/L 136-145 [facility] Work Phone: Basophils/100 WBC (Bld) 0.5 % 0-1 [facility] Work Phone: Eosinophils/100 WBC (Bld) 0.1 % 0-5 [facility] Work Phone: Neutrophils (Bld) [#/Vol] 6.7 10*3/uL 2.0-7.7 [facility] Work Phone: Neutrophils/100 WBC (Bld) 75.2 % 47-70 [facility] Work Phone: WBC (Bld) [#/Vol] 8.8 10*3/uL 4.4-11.0 [facility] Work Phone: Bilirubin Test strip Ql (U)o n 09-16-2021 Bilirubin Ql (U) Negative Negative [facility] Work Phone: Blood erythrocytes count (nu mber/volume)on 09-16-2021 RBC (Bld) [#/Vol] 4.98 10*6/uL 4.2-5.4 [facility] Work Phone: Blood hemoglobin measurement (mass/volume)on 09-16-2021 Hemoglobin (Bld) [Mass/Vol] 14.2 g/dL 12.0-15.0 [facility] Work Phone: Blood lymphocytes/100 leukoc yteson 09-16-2021 Lymphocytes/100 WBC (Bld) 7.9 % 19-41 [facility] Work Phone: Blood monocytes/100 leukocyt eson 09-16-2021 Monocytes/100 WBC (Bld) 15.6 % 0-10 [facility] Work Phone: Blood platelet mean volumeon 09-16-2021 Platelet mean volume (Bld) [Entitic vol] 8.9 fL 6.2-12.0 [facility] Work Phone: Determination of erythrocyte mean corpuscular volume (MCV)on 09-16-2021 MCV (RBC) [Entitic vol] 90.8 fL 81-99 [facility] Work Phone: Hematocrit Auto (Bld) [Volum e fraction]on 09-16-2021 Hematocrit (Bld) [Volume fraction] 45.2 % 37-47 [facility] Work Phone: INR in Blood by Coagulation assayon 09-16-2021 INR Coag (Bld) [Relative time] 1.0 {INR} [facility] Work Phone: Ketones Test strip Ql (U)on 09-16-2021 Ketones Ql (U) 5 mg/dl Negative [facility] Work Phone: Laboratory - Chemistry and C hemistry - challengeon 09-16-2021 ALP [Catalytic activity/Vol] 88 U/L 45-117 [facility] Work Phone: ALT [Catalytic activity/Vol] 28 U/L 13-56 [facility] Work Phone: [phone] CO2 [Moles/Vol] 27.0 mmol/L 21.0-32.0 [facility] Work Phone: Globulin (S) [Mass/Vol] 3.3 g/dL 2.2-4.2 [facility] Work Phone: Urea nitrogen/Creatinine [Mass ratio] 38.8 mg/mg 10-20 [facility] Work Phone: Laboratory - Coagulationon 0 09-16-2021 aPTT Coag (Bld) [Time] 30.0 s 24.1-36.2 [facility] Work Phone: PT Coag (PPP) [Time] 13.1 s 11.7-14.[address] [facility] Work Phone: Laboratory - Hematology and Cell countson 09-16-2021 Erythrocyte distribution width (RBC) [Entitic vol] 44.8 fL 35.1-43.9 [facility] Work Phone: Erythrocyte distribution width (RBC) [Ratio] 13.4 % 11.6-14.6 [facility] Work Phone: Immature granulocytes/100 WBC (Bld) 0.700 % 0.0-0.9 [facility] Work Phone: Comment on above: IG% - Immature Granu locytes (promyelocytes, myelocytes and metamyelocytes) > 1% indicates that a LEFT SHIFT is Present. MCH (RBC) [Entitic mass] 28.5 pg 27.0-32.0 [facility] Work Phone: Nucleated RBC/100 WBC (Bld) [Ratio] 0 % 0-5 [facility] Work Phone: Laboratory - Microbiology an d Antimicrobial susceptibilityon 09-16-2021 Bacteria identified Cx Nom (Bld) No growth in 5 days. [facility] Work Phone: MCHC Auto (RBC) [Mass/Vol]on 09-16-2021 MCHC (RBC) [Mass/Vol] 31.4 g/dL 32-36 [facility] Work Phone: Mucus LM Ql (Urine sed)on Mucus Ql (Urine sed) 0 SEEN /hpf [facility] Work Phone: [phone] Nitrite Test strip Ql (U)on 09-16-2021 Nitrite Ql (U) Positive Negative [facility] Work Phone: No Panel Informationon 09-16 Estimated Creatinine Clearance Calc 66.30 ml/min [facility] Work Phone: [phone] Estimated GFR (MDRD) Amer 101 mL/min >60 [facility] Work Phone: Comment on above: GFR Calc Estimated GFR (MDRD) Non-Af Amer 83 mL/min >60 [facility] Work Phone: Comment on above: Non- GFR Calc Platelets bldon 09-16-2021 Platelets (Bld) [#/Vol] 373 10*3/uL 150-450 [facility] Work Phone: Protein Test strip Ql (U)on 09-16-2021 Protein Ql (U) 15 mg/dl Negative [facility] Work Phone: Serum or plasma albumin jj urement (mass/volume)on 09-16-2021 Albumin [Mass/Vol] 3.6 g/dL 3.2-5.0 [facility] Work Phone: [phone] Serum or plasma albumin/glob ulin mass ratioon 09-16-2021 Albumin/Globulin [Mass ratio] 1.1 {ratio} 0.9-2.4 [facility] Work Phone: [phone] Serum or plasma calcium jj urement (mass/volume)on 09-16-2021 Calcium [Mass/Vol] 8.8 mg/dL 8.5-10.1 [facility] Work Phone: [phone] Serum or plasma creatinine m easurement (mass/volume)on 09-16-2021 Creatinine [Mass/Vol] 0.75 mg/dL 0.55-1.02 [facility] Work Phone: Comment on above: The validity of the calculated GFR & GFRAA in patients over 70 years has not been determined. Clinical correlation is essential. Serum or plasma urea nitroge n measurement (mass/volume)on 09-16-2021 Urea nitrogen [Mass/Vol] 29 mg/dL 7-18 [facility] Work Phone: [phone] Squamous epithelial cells de tection in urine sediment by light microscopyon 09-16-2021 Epithelial cells.squamous LM Ql (Urine sed) 0 SEEN /hpf 5-10 [facility] Work Phone: Thin prep Papanicolaou smear with manual screeningon 09-16-2021 Thin prep Papanicolaou smear with manual screening 16 U/L 15-37 [facility] Work Phone: Thin prep Papanicolaou smear with manual screening 5 5-15 [facility] Work Phone: Urine blood detectionon 09-03 RBC Ql (U) 10 /ul Negative [facility] Work Phone: RBC Ql (U) 0 SEEN /hpf 0-5 [facility] Work Phone: Urine clarityon 09-16-2021 Clarity (U) Cloudy Clear [facility] Work Phone: Urine color determinationon 09-16-2021 Color (U) Yellow Yellow [facility] Work Phone: Urine glucose detectionon Glucose Ql (U) Normal mg/dl Normal [facility] Work Phone: Urine leukocyte esterase det ection by dipstickon 09-16-2021 Leukocyte esterase Test strip Ql (U) Negative Negative [facility] Work Phone: Urine pHon 09-16-2021 pH (U) 5.0 [pH] 5.0 - 8.0 [facility] Work Phone: Urine sediment bacteria coun t by microscopy (number/high power field)on 09-16-2021 Bacteria LM.HPF (Urine sed) [#/Area] 2 /[HPF] None Seen [facility] Work Phone: Urine specific gravity measu rementon 09-16-2021 Specific gravity (U) [Rel density] 1.025 1.002-1.030 [facility] Work Phone: Urobilinogen Auto test strip Ql (U)on 09-16-2021 Urobilinogen Ql (U) Normal mg/dl Normal [facility] Work Phone: Hepatic function 2000 panelo n 04-09-2021 Albumin [Mass/Vol] 4.4 g/dL 3.2 - 5.2 g/dL [facility] ALP [Catalytic activity/Vol] 100 U/L 40 - 150 U/L [facility] ALT [Catalytic activity/Vol] 22 U/L 0 - 40 U/L [facility] AST [Catalytic activity/Vol] 17 U/L 0 - 45 U/L [facility] Bilirubin [Mass/Vol] 0.2 mg/dL 0.0 - 1 .3 mg/dL [facility] Bilirubin.conjugated [Mass/Vol] mg/dL 0.0 - 0.4 mg/dL [facility] Interpretation and review of laboratory results Normal [facility] Protein [Mass/Vol] 6.5 g/dL 6.0 - 8.0 g/dL [facility] IGG, IGA, IGM IMMUNOGLOBULIN SOrdered By: Huong Jacobs on 04-09-2021 Interpretation and review of laboratory results Abnormal [facility] Laboratory - Chemistry and C hemistry - challengeon 04-09-2021 25-hydroxyvitamin D [Mass/Vol] 64 ng/mL 30 - 100 ng/mL [facility] Comment on above: Vitamin D status: Deficiency: <10 ng/mL Insufficiency: 10-30 ng/mL Sufficiency: 30-100 ng/mL Toxicity: >100 ng/mL Laboratory - Chemistry and C hemistry - challengeOrdered By: Huong Milan on 04-09-2021 IgA [Mass/Vol] 151 mg/dL 84 - 381 mg/dL [facility] IgG [Mass/Vol] 523 mg/dL Low 541 - 1694 mg/dL [facility] IgM [Mass/Vol] 60 mg/dL 43 - 238 mg/dL [facility] Laboratory - Hematology and Cell countson 04-09-2021 Basophils (Bld) [#/Vol] 0.07 10*3/uL [facility] Basophils/100 WBC (Bld) 0.6 % [facility] Eosinophils (Bld) [#/Vol] 0.04 10*3/uL [facility] Eosinophils/100 WBC (Bld) 0.4 % [facility] Erythrocyte distribution width (RBC) [Entitic vol] 13.8 % 11.6 - 14.8 % [facility] Hematocrit (Bld) [Volume fraction] 50.0 % High 36.0 - 46.0 % [facility] Hemoglobin (Bld) [Mass/Vol] 15.4 g/dL 12.0 - 16.0 g/dL [facility] Immature granulocytes (Bld) [#/Vol] 0.12 10*3/uL [facility] Immature granulocytes/100 WBC (Bld) 1.10 % [facility] Comment on above: The IG parameter is the percentage of metamyelocytes, myelocytes and promyelocytes. An immature granulocyte count (IG) of 1% or more suggests the possibility of infection, an IG count of 3% is very likely related to an infection. Lymphocytes (Bld) [#/Vol] 0.94 10*3/uL [facility] Lymphocytes/100 WBC (Bld) 8.4 % [facility] MCH (RBC) [Entitic mass] 28.1 pg 26. 0 - 34.0 pg [facility] MCHC (RBC) [Mass/Vol] 30.8 g/dL Low 31.0 - 37.0 g/dL [facility] MCV (RBC) [Entitic vol] 91.2 fL 80.0 - 100.0 fL [facility] Monocytes (Bld) [#/Vol] 0.93 10*3/uL High [facility] Monocytes/100 WBC (Bld) 8.3 % [facility] Neutrophils (Bld) [#/Vol] 9.12 10*3/uL High [facility] Neutrophils/100 WBC (Bld) 81.2 % [facility] Nucleated RBC (Bld) [#/Vol] 0.00 10*3/uL [facility] Nucleated RBC/100 WBC (Bld) [Ratio] 0.0 % [facility] Platelet mean volume (Bld) [Entitic vol] 9.4 fL 9.4 - 12.4 fL [facility] Platelets (Bld) [#/Vol] 417 10*3/uL High [facility] RBC (Bld) [#/Vol] 5.48 10*6/uL High [facility] ealth WBC (Bld) [#/Vol] 11.22 10*3/uL [facility] No Panel Informationon 04-09 Interpretation and review of laboratory results Abnormal [facility] VITAMIN D, TOTAL, 25-OHon Interpretation and review of laboratory results Normal [facility] Assay performed shahrzad gomez [employer] CLIA methodology. [facility] MR BRAIN WITHOUT CONTRASTon 10-18-2019 No acute intracrania l abnormality. Underlying atrophy and black holes. Stable burden of T2/FLAIR signal abnormalities compatible with demyelination. [employer] Workstation ID: [id number] [facility] EXAMINATION: MR HEATHER Jewell WITHOUT CONTRAST HISTORY: ORDERING SYSTEM PROVIDED HISTORY: [...] compatible with the patient's diagnosis of demyelination. [facility] Interface, Rad In Fuji Speechq - [...] of T2/FLAIR signal abnormalities compatible with demyelination. [employer] Workstation ID: [id number] [facility] POC Creatinineon 09-28-2018 Creatinine mass conc 0.6 mg/dL 0.4 - 1 .1 mg/dL [facility] Interpretation and review of laboratory results Normal [facility] Comprehensive Metabolic Pane dwight 01-19-2018 Albumin mass conc 4.7 g/dL Invalid Interpretation Code 3.2 - 5.2 g/dL [facility] ALP enzyme act/vol 76 U/L Invalid Interpretation Code 40 - 150 U/L [facility] ALT enzyme act/vol 14 U/L Invalid Interpretation Code 0 - 40 U/L [facility] Anion gap 3 molar conc 17 mmol/L Invalid Interpretation Code 10 - 20 mmol/L [facility] AST enzyme act/vol 15 U/L Invalid Interpretation Code 0 - 45 U/L [facility] Bilirubin mass conc 0.3 mg/dL Invalid Interpretation Code 0 - 1.3 mg/dL [facility] Calcium mass conc 10.2 mg/dL Invalid Interpretation Code 8.4 - 10.2 mg/dL [facility] Chloride molar conc 107 mmol/L Invalid Interpretation Code 98 - 108 mmol/L [facility] Creatinine mass conc 0.47 mg/dL Invalid Interpretation Code 0.4 - 1.1 mg/dL [facility] GFR/1.73 sq M predicted among non-blacks MDRD vol rate/area (S/P/Bld) The eGFR should be used for monitoring renal function only and not for medication dosing. Invalid Interpretation Code [facility] GFR/1.73 sq M.predicted CKD-EPI vol rate/area (S/P/Bld) 108 Invalid Interpretation Code >=60 mL/min/1.73 m2 [facility] Glucose mass conc 96 mg/dL Invalid Interpretation Code 65 - 99 mg/dL [facility] HCO3 molar conc 26 mmol/L Invalid Interpretation Code 21 - 32 mmol/L [facility] Interpretation and review of laboratory results Abnormal Invalid Interpretation Code [facility] Potassium molar conc 4.2 mmol/L Invalid Interpretation Code 3.5 - 5.1 mmol/L [facility] Protein mass conc 6.9 g/dL Invalid Interpretation Code 6 - 8 g/dL [facility] Sodium molar conc 146 mmol/L High 135 - 145 mmol/L [facility] Urea nitrogen mass conc 33 mg/dL High 8 - 25 mg/dL [facility] Urea nitrogen/Creatinine mass ratio 70.2 mg/mg High [facility] Vitamin D, Total, 25-OHon 25-Hydroxyvitamin D2+25-Hydroxyvitamin D3 mass conc 72 ng/mL Invalid Interpretation Code 30 - 100 ng/mL [facility] Comment on above: Vitamin D status: De ficiency: <10 ng/mL Insufficiency: 10-30 ng/mL Sufficiency: 30-100 ng/mL Toxicity: >100 ng/mL Interpretation and review of laboratory results Normal Invalid Interpretation Code [facility] Assay performed usin g [employer] CLIA methodology. Invalid Interpretation Code [facility] CBC and Differentialon 08-25 Creatinine The following orders were created for panel order CBC and Differential. Procedure Abnormality Status --------- ------ CBC Auto Differential[[id number]] Abnormal Final result Please view results for these tests on the individual orders. Invalid Interpretation Code [facility] Comprehensive Metabolic Pane dwight 08-25-2017 Alanine aminotransferase (ALT) 18 U/L Invalid Interpretation Code 0 - 40 U/L [facility] Albumin 4.6 g/dL Invalid Interpretation Code 3.2 - 5.2 g/dL [facility] Alkaline phosphatase (ALP) 82 U/L Invalid Interpretation Code 40 - 150 U/L [facility] Anion gap 19 mmol/L Invalid Interpretation Code 10 - 20 mmol/L [facility] Aspartate aminotransferase (AST) 15 U/L Invalid Interpretation Code 0 - 45 U/L [facility] Bicarbonate (HCO3) 26 mmol/L Invalid Interpretation Code 21 - 32 mmol/L [facility] Bilirubin (total) mg/dL Invalid Interpretation Code 0 - 1.3 mg/dL [facility] BUN/Creatinine Ratio 48.1 mg/mg High 10.0 - 20.0 [facility] Calcium 10.3 mg/dL High 8.4 - 10.2 mg/dL [facility] Chloride 103 mmol/L Invalid Interpretation Code 98 - 108 mmol/L [facility] Creatinine 0.54 mg/dL Invalid Interpretation Code 0.4 - 1.1 mg/dL [facility] eGFR (non-black) The eGFR should be used for monitoring renal function only and not for medication dosing. Invalid Interpretation Code [facility] eGFR (non-black) 104 mL/min/{1.73_m2} Invalid Interpretation Code >=60 [facility] Glucose 86 mg/dL Invalid Interpretation Code 65 - 99 mg/dL [facility] Interpretation and review of laboratory results Abnormal Invalid Interpretation Code [facility] Potassium 4.3 mmol/L Invalid Interpretation Code 3.5 - 5.1 mmol/L [facility] Protein 6.9 g/dL Invalid Interpretation Code 6 - 8 g/dL [facility] Sodium 144 mmol/L Invalid Interpretation Code 135 - 145 mmol/L [facility] Urea nitrogen 26 mg/dL High 8 - 25 mg/dL [facility] Vitamin D, Total, 25-OHon Vit D, 25-Hydroxy 109 ng/mL High 30 - 100 ng/mL [facility] Vitamin D, Total, 25-OH Assay performed using [employer] CLIA methodology. Invalid Interpretation Code [facility] CBC and Differentialon 05-25 Creatinine The following orders were created for panel order CBC and Differential. Procedure Abnormality Status --------- ------ CBC Auto Differential[[id number]] Abnormal Final result Please view results for these tests on the individual orders. Invalid Interpretation Code [facility] Work Phone: Bronchoalveolar lavage cultu re with Gram stain Respiratory Culture Negative [facility] Work Phone: Culture, urine Bacteria identified Cx Nom (U) Mixed Gram Pos & Gram Neg Org [facility] Work Phone: Bacteria identified Cx Nom (U) Yeast [facility] Work Phone: Bacteria identified Cx Nom (U) Escherichia coli [facility] Work Phone: Gram stain for investigation of transfusion reaction Microscopic observation Gram stain Nom (Unsp spec) [facility] Work Phone: Laboratory - Microbiology an d Antimicrobial susceptibility Bacteria identified Cx Nom (Bld) No growth in 5 days. [facility] Work Phone: No Panel Information Streptococcus pneumoniae Antigen (M [facility] Work Phone: Vital Signs Date Time Vital Sign Value Performing Clinician Facility 07-05-2022 11:24-0500 Body height 162.[address] Joan Hughes Work Phone: [facility] 09-28-2021 12:05-0400 SaO2% (BldA) [Mass fraction] 98 % Dr. Joan Hughes Work Phone: [facility] Work Phone: 09-28-2021 09:00-0400 Body temperature 98 [degF] Dr. Joan Hughes Work Phone: [facility] Work Phone: 09-28-2021 09:00-0400 Diastolic blood pressure 79 mm[Hg] Dr. Joan Hughes Work Phone: [facility] Work Phone: 09-28-2021 09:00-0400 Heart rate 100 /min Dr. Joan Hughes Work Phone: [facility] Work Phone: 09-28-2021 09:00-0400 Respiratory rate 14 /min Dr. Joan Hughes Work Phone: [facility] Work Phone: 09-28-2021 09:00-0400 Systolic blood pressure 117 mm[Hg] Dr. Joan Hughes Work Phone: [facility] Work Phone: 09-28-2021 05:32-0400 Body weight 66.[address] Joan Hughes Work Phone: [facility] Work Phone: 09-25-2021 09:36-0400 Inhaled oxygen flow rate 2 L/min Dr. Joan Hughes Work Phone: [facility] Work Phone: 09-24-2021 11:58-0400 Body height 162.[address] Joan Hughes Work Phone: [facility] Work Phone: 09-23-2021 16:35-0400 Inhaled oxygen concentration 41 % Dr. Joan Hughes Work Phone: [facility] Work Phone: 09-16-2021 14:53-0400 Body mass index (BMI) [Ratio] 25.7 kg/m2 Dr. Joan Hughes Work Phone: [facility] Work Phone: 09-16-2021 14:11-0400 Body temperature 99.3 [degF] [facility] Work Phone: 09-16-2021 14:11-0400 Diastolic blood pressure 56 mm[Hg] [facility] Work Phone: 09-16-2021 14:11-0400 Heart rate 114 /min [facility] Work Phone: 09-16-2021 14:11-0400 Respiratory rate 16 /min [facility] Work Phone: 09-16-2021 14:11-0400 SaO2% (BldA) [Mass fraction] 95 % [facility] Work Phone: 09-16-2021 14:11-0400 Systolic blood pressure 132 mm[Hg] [facility] Work Phone: 09-16-2021 13:00-0400 Body height 162.56 cm [facility] Work Phone: 09-16-2021 13:00-0400 Body mass index (BMI) [Ratio] 26.8 kg/m2 [facility] Work Phone: 09-16-2021 13:00-0400 Body weight 70.8 kg [facility] Work Phone: 11-05-2021 13:25-0400 Body temperature 97.9 [degF] Chair 7 [facility] 04-09-2021 13:25-0400 Diastolic blood pressure 80 mm[Hg] Chair 7 [facility] 04-09-2021 13:25-0400 Heart rate 123 /min Chair 7 [facility] 04-09-2021 13:25-0400 SaO2% (BldA) [Mass fraction] 97 % Chair 7 [facility] 04-09-2021 13:25-0400 Systolic blood pressure 133 mm[Hg] Chair 7 [facility] 04-09-2021 11:06-0400 Respiratory rate 16 /min Chair 7 [facility] 04-09-2021 07:57-0400 Body height 162.6 cm Willard Epperson MD Work Phone: [facility] 04-09-2021 07:57-0400 Body mass index (BMI) [Ratio] 25.06 kg/m2 Willard Epperson MD Work Phone: [facility] 04-09-2021 07:57-0400 Body weight 66.22 kg Willard Epperson MD Work Phone: [facility] 04-09-2021 07:57-0400 Diastolic blood pressure 65 mm[Hg] Willard Epperson MD Work Phone: [facility] 04-09-2021 07:57-0400 Heart rate 111 /min Willard Epperson MD Work Phone: [facility] 04-09-2021 07:57-0400 Systolic blood pressure 123 mm[Hg] Willard Epperson MD Work Phone: [facility] 10-16-2020 12:50-0400 Body temperature 98.29 [degF] Chair 2 [facility] 10-16-2020 12:50-0400 Diastolic blood pressure 63 mm[Hg] Chair 2 [facility] 10-16-2020 12:50-0400 Heart rate 130 /min Chair 2 [facility] 10-16-2020 12:50-0400 SaO2% (BldA) [Mass fraction] 96 % Chair 2 [facility] 10-16-2020 12:50-0400 Systolic blood pressure 128 mm[Hg] Chair 2 [facility] 10-16-2020 11:34-0400 Respiratory rate 16 /min Chair 2 [facility] 04-17-2020 14:51-0500 BP Diastolic 70 mm[Hg] Chair 2 [facility] 04-17-2020 14:51-0500 BP Systolic 136 mm[Hg] Chair 2 [facility] 04-17-2020 14:51-0500 Pulse (Heart Rate) 126 /min Chair 2 [facility] 04-17-2020 14:51-0500 Pulse Oximetry 97 % Chair 2 [facility] 04-17-2020 14:51-0500 Respiratory Rate 16 /min Chair 2 [facility] 04-17-2020 14:48-0500 Body Temperature 98.4 [degF] Chair 2 [facility] 04-17-2020 10:41-0500 BMI (Body Mass Index) 22.31 kg/m2 Willard Epperson [facility] 04-17-2020 10:41-0500 Body weight 58.97 kg Willard Epperson [facility] 04-17-2020 10:41-0500 BP Diastolic 80 mm[Hg] Willard Epperson [facility] 04-17-2020 10:41-0500 BP Systolic 131 mm[Hg] Willard Epperson [facility] 04-17-2020 10:41-0500 Height 162.6 cm Willard Epperson [facility] 04-17-2020 10:41-0500 Pulse (Heart Rate) 86 /min Willard Epperson [facility] 10-18-2019 13:54-0400 Body Temperature 97.5 [degF] Chair 1 [facility] 10-18-2019 13:54-0400 BP Diastolic 79 mm[Hg] Chair 1 [facility] 10-18-2019 13:54-0400 BP Systolic 137 mm[Hg] Chair 1 [facility] 10-18-2019 13:54-0400 Pulse (Heart Rate) 112 /min Chair 1 [facility] 10-18-2019 13:54-0400 Pulse Oximetry 95 % Chair 1 [facility] 10-18-2019 13:54-0400 Respiratory Rate 20 /min Chair 1 [facility] 10-18-2019 07:03-0400 BMI (Body Mass Index) 22.31 kg/m2 Willard Epperson [facility] 10-18-2019 07:03-0400 Body weight 58.97 kg Willard Epperson [facility] 10-18-2019 07:03-0400 Height 162.6 cm Willard Epperson [facility] 04-12-2019 12:17-0500 BMI (Body Mass Index) 22.31 kg/m2 Willard Epperson [facility] 04-12-2019 12:17-0500 Body weight 58.97 kg Willard Epperson [facility] 04-12-2019 12:17-0500 BP Diastolic 78 mm[Hg] Willard Epperson [facility] 04-12-2019 12:17-0500 BP Systolic 124 mm[Hg] Willard Epperson [facility] 04-12-2019 12:17-0500 Height 162.6 cm Willard Epperson [facility] 04-12-2019 12:17-0500 Pulse (Heart Rate) 106 /min Willard Epperson [facility] 04-12-2019 12:12-0500 Body Temperature 97.9 [degF] Chair 5 [facility] 04-12-2019 12:12-0500 BP Diastolic 81 mm[Hg] Chair 5 [facility] 04-12-2019 12:12-0500 BP Systolic 134 mm[Hg] Chair 5 [facility] 04-12-2019 12:12-0500 Pulse (Heart Rate) 104 /min Chair 5 [facility] 04-12-2019 12:12-0500 Pulse Oximetry 97 % Chair 5 [facility] 04-12-2019 12:12-0500 Respiratory Rate 16 /min Chair 5 [facility] 10-12-2018 13:25-0400 Body Temperature 98.1 [degF] Chair 1 [facility] 10-12-2018 13:25-0400 BP Diastolic 74 mm[Hg] Chair 1 [facility] 10-12-2018 13:25-0400 BP Systolic 137 mm[Hg] Chair 1 [facility] 10-12-2018 13:25-0400 Pulse (Heart Rate) 130 /min Chair 1 [facility] 10-12-2018 13:25-0400 Pulse Oximetry 95 % Chair 1 [facility] 10-12-2018 10:14-0400 Respiratory Rate 14 /min Chair 1 [facility] 09-28-2018 15:44-0400 BMI (Body Mass Index) 22.31 kg/m2 Willard Epperson [facility] 09-28-2018 15:44-0400 Body weight 58.97 kg Willard Epperson [facility] 09-28-2018 15:44-0400 BP Diastolic 80 mm[Hg] Willard Epperson [facility] 09-28-2018 15:44-0400 BP Systolic 145 mm[Hg] Willard Epperson [facility] 09-28-2018 15:44-0400 Height 162.6 cm Willard Epperson [facility] 09-28-2018 15:44-0400 Pulse (Heart Rate) 89 /min Willard Epperson [facility] 09-28-2018 11:38-0400 BMI (Body Mass Index) 22.31 kg/m2 Willard Epperson [facility] 09-28-2018 11:38-0400 Height 162.6 cm Willard Epperson [facility] 09-28-2018 11:38-0400 Weight 58.97 kg Willard Epperson [facility] 01-19-2018 11:34-0400 BMI (Body Mass Index) 20.77 kg/m2 Willard Epperson [facility] 01-19-2018 11:34-0400 BP Diastolic 70 mm[Hg] Willard Epperson [facility] 01-19-2018 11:34-0400 BP Systolic 118 mm[Hg] Willard Epperson [facility] 01-19-2018 11:34-0400 Height 162.6 cm Willard Epperson [facility] 01-19-2018 11:34-0400 Pulse (Heart Rate) 76 /min Willard Epperson [facility] 01-19-2018 11:34-0400 Weight 54.88 kg Willard Epperson [facility] 10-11-2017 14:08-0400 Body Temperature 98.1 [degF] Chair 1 [facility] 10-11-2017 14:08-0400 BP Diastolic 79 mm[Hg] Chair 1 [facility] 10-11-2017 14:08-0400 BP Systolic 131 mm[Hg] Chair 1 [facility] 10-11-2017 14:08-0400 Pulse (Heart Rate) 106 /min Chair 1 [facility] 10-11-2017 14:08-0400 Pulse Oximetry 95 % Chair 1 [facility] 10-11-2017 14:08-0400 Respiratory Rate 14 /min Chair 1 [facility] 08-25-2017 11:31-0400 BMI (Body Mass Index) 22.31 kg/m2 Willard Epperson [facility] 08-25-2017 11:31-0400 BP Diastolic 83 mm[Hg] Willard Epperson [facility] 08-25-2017 11:31-0400 BP Systolic 137 mm[Hg] Willard Epperson [facility] 08-25-2017 11:31-0400 Height 162.6 cm Willard Epperson [facility] 08-25-2017 11:31-0400 Pulse (Heart Rate) 81 /min Willard Epperson [facility] 08-25-2017 11:31-0400 Weight 58.97 kg Willard Epperson [email or web address] 05-25-2017 09:23-0500 BMI (Body Mass Index) 22.49 kg/m2 Willard Epperson [email or web address] Work Phone: 05-25-2017 09:23-0500 BP Diastolic 74 mm[Hg] Willard Epperson [email or web address] Work Phone: 05-25-2017 09:23-0500 BP Systolic 104 mm[Hg] Willard Epperson [email or web address] Work Phone: 05-25-2017 09:23-0500 Height 162.6 cm Willard Epperson [email or web address] Work Phone: 05-25-2017 09:23-0500 Pulse (Heart Rate) 106 /min Willard Epperson [email or web address] Work Phone: 05-25-2017 09:23-0500 Weight 59.42 kg Willard Epperson [email or web address] Work Phone: 05-04-2017 13:10-0500 Body Temperature 98.29 [degF] Physician No [email or web address] Work Phone: 05-04-2017 13:10-0500 BP Diastolic 77 mm[Hg] Physician No [facility] Work Phone: 05-04-2017 13:10-0500 BP Systolic 121 mm[Hg] Physician No [email or web address] Work Phone: 05-04-2017 13:10-0500 Pulse (Heart Rate) 104 /min Physician No [email or web address] Work Phone: 05-04-2017 13:10-0500 Pulse Oximetry 96 % Physician No [email or web address] Work Phone: 05-04-2017 11:55-0500 Respiratory Rate 14 /min Physician No [facility] Work Phone: 04-13-2017 16:00-0500 Body Temperature 98.01 [degF] Physician No [email or web address] Work Phone: 04-13-2017 16:00-0500 BP Diastolic 77 mm[Hg] Physician No [facility] Work Phone: 04-13-2017 16:00-0500 BP Systolic 137 mm[Hg] Physician No [email or web address] Work Phone: 04-13-2017 16:00-0500 Pulse (Heart Rate) 115 /min Physician No [email or web address] Work Phone: 04-13-2017 16:00-0500 Pulse Oximetry 96 % Physician No [email or web address] Work Phone: 04-13-2017 16:00-0500 Respiratory Rate 16 /min Physician No [email or web address] Work Phone: 02-13-2017 09:07-0400 BMI (Body Mass Index) 21.8 kg/m2 Willardben Epperson [email or web address] Work Phone: 02-13-2017 09:07-0400 BP Diastolic 81 mm[Hg] Willard Epperson [email or web address] Work Phone: 02-13-2017 09:07-0400 BP Systolic 145 mm[Hg] Willard Epperson [email or web address] Work Phone: 02-13-2017 09:07-0400 Height 162.6 cm Willard Epperson [email or web address] Work Phone: 02-13-2017 09:07-0400 Pulse (Heart Rate) 73 /min Willard Epperson [email or web address] Work Phone: 02-13-2017 09:07-0400 Weight 57.61 kg Willard Epperson [email or web address] Work Phone: Encounters Encounter Date Encounter Type Care Provider Facility Start: 12-16-2024 ambulatory Joan Dorianck Facilit y:[facility] Start: 12-16-2024 Registered Referred Breanne Ruiz MD [facility] Start: 12-13-2024 ambulatory Joan Elderbrock Facilit y:[facility] Start: 12-13-2024 [facility]: 12-04-2024 ambulatory Joan Dorianck Facilit y:[facility] Start: 12-04-2024 Registered Referred Breanne Ruiz MD -[facility] Start: 11-15-2024 ambulatory Joan Hughes Facilit y:[facility] Start: 11-15-2024 Registered Referred Breanne Ruiz MD -[facility] Start: 11-07-2024 ambulatory Joan Hughes Facilit y:[facility] Start: 11-07-2024 [facility] Start: 11-05-2024 ambulatory Joan Hughes Facilit y:[facility] Start: 11-05-2024 Registered Referred Britney Elin 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-C -[facility] Start: 10-11-2024 End: 10-11-[address] Joan Hughes MD Work Phone: [facility] Start: 10-11-2024 End: 10-11-2024 Patient encounter procedure Britneyrose Worthington -[facility] Work Phone: Start: 10-11-2024 End: 10-11-[address] Joan Hughes MD Work Phone: [facility] Work Phone: Start: 10-11-2024 End: 10-11-2024 Departed Referred Britney Worthington 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-C -[facility] Start: 10-11-2024 Registered Referred Britney Elin 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-C -[facility] Start: 10-11-2024 End: 10-11-2024 ambulatory Joan Hughes Facility:[facility] Start: 10-08-2024 End: 10-08-[address] Joan Hughes MD Work Phone: [facility] Work Phone: Start: 10-08-2024 End: 10-08-2024 [facility] Start: 10-07-2024 End: 10-08-[address] Joan Hughes MD Work Phone: [facility] Start: 10-07-2024 End: 10-07-2024 Patient encounter procedure Britney Worthington 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-Aysha -[facility] Work Phone: Start: 09-04-2024 End: 09-04-2024 [facility] Start: 09-04-2024 [facility] Start: 09-03-2024 End: 09-04-2024 ambulatory Efewtracy Vange OLS Facility:[facility] Start: 09-03-2024 End: 09-03-[address] Breanne Ruiz MD -[facility] Work Phone: Start: 09-03-2024 End: 09-03-2024 [facility] Start: 09-03-2024 [facility] Start: 09-03-2024 End: 09-03-2024 ambulatory Efewlalitabe Isaelmichaele OLS Facility:[facility] Start: 08-19-2024 End: 08-19-2024 ambulatory Britney Worthington NP Facility:[facility] Start: 08-19-2024 End: 08-19-2024 Patient encounter procedure Britney Worthington 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- -[facility] Work Phone: Start: 08-19-2024 End: 08-19-[address] Joan Hughes MD Work Phone: [facility] Work Phone: Start: 08-19-2024 End: 08-19-2024 [facility] Start: 08-19-2024 End: 08-19-2024 ambulatory Efewlalitabe Cierae OLS Facility:[facility] Start: 08-06-2024 End: 08-06-[address] Joan Hughes MD Work Phone: [facility] Work Phone: Start: 08-06-2024 End: 08-06-2024 [facility] Start: 08-06-2024 [facility] Start: 08-05-2024 End: 08-06-2024 ambulatory Efewongbe Isaelghe OLS Facility:[facility] Start: 08-05-2024 End: 08-05-2024 Patient encounter procedure Britney Worthington 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-[facility] Work Phone: Start: 07-09-2024 End: 07-09-[address] 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 Facility:[facility] Start: 04-09-2024 End: 04-09-2024 ambulatory Breanne Ruiz OLS Facility:[facility] Start: 03-28-2024 End: 03-28-2024 ambulatory Joan Hughes Facility:[facility] Start: 03-19-2024 End: 03-19-2024 ambulatory Joan Ashleyalexanderrafael Facility:[facility] Start: 03-07-2024 ambulatory Breanne Ruiz OLS Fa cility:[facility] Start: 03-05-2024 End: 03-05-2024 ambulatory Joan Hughes Facility:[facility] Start: 02-27-2024 ambulatory Breanne Vange OLS Fa cility:[facility] Start: 02-07-2024 End: 02-07-2024 ambulatory Joan Hughes Facility:[facility] Start: 02-06-2024 ambulatory Joan Hughes Facilit y:[facility] Start: 01-22-2024 ambulatory Joan Hughes Facilit y:[facility] Start: 01-09-2024 End: 01-10-2024 ambulatory Joan Hughes Facility:[facility] Start: 01-09-2024 End: 01-09-2024 ambulatory Joan Dionanalilia Facility:[facility] Start: 09-12-2023 End: 09-12-[address] Joan Hughes Work Phone: [facility] Work Phone: Start: 09-05-2023 End: 09-05-[address] Joan Hughes Work Phone: [facility] Work Phone: Start: 09-05-2023 End: 09-05-[address] Joan Hughes Work Phone: [facility] Start: 08-14-2023 End: 08-14-[address] Joan Hughes Work Phone: [facility] Work Phone: Start: 08-10-2023 End: 08-10-[address] Joan Hughes Work Phone: [facility] Start: 08-10-[address] Joan lacy Work Phone: [facility] Start: 08-08-2023 End: 08-08-[address] Joan Hughes Work Phone: [facility] Work Phone: Start: 08-08-2023 End: 08-08-[address] Joan Hughes Work Phone: [facility] Start: 07-17-2023 End: 07-17-[address] Joan Hughes Work Phone: [facility] Work Phone: Start: 07-17-2023 End: 07-17-[address] Joan Hughes Work Phone: [facility] Start: 07-11-2023 End: 07-11-[address] Joan Hughes Work Phone: [facility] Work Phone: Start: 07-03-2023 End: 07-03-[address] Joan Hughes Work Phone: [facility] Work Phone: Start: 07-03-2023 End: 07-03-[address] Joan Hughes Work Phone: [facility] Start: 07-03-[address] Joan lacy Work Phone: [facility] Start: 06-26-2023 End: 06-26-[address] Joan Hughes Work Phone: [facility] Work Phone: Start: 06-08-2023 End: 06-08-[address] Joan Hughes Work Phone: [facility] Work Phone: Start: 06-06-2023 End: 06-06-[address] Joan Hughes Work Phone: [facility] Work Phone: Start: 06-06-2023 End: 06-06-[address] Joan Hughes Work Phone: [facility] Start: 05-09-2023 End: 05-09-[address] Joan Hughes Work Phone: [facility] Work Phone: Start: 05-09-2023 End: 05-09-[address] Joan Hughes Work Phone: [facility] Work Phone: Start: 05-09-2023 End: 05-09-[address] Joan Hughes Work Phone: [facility] Start: 05-01-2023 End: 05-01-[address] Joan Hughes Work Phone: [facility] Work Phone: Start: 03-14-2023 End: 03-14-[address] Joan Hughes Work Phone: [facility] Work Phone: Start: 03-10-2023 End: 03-10-[address] Joan Hughes Work Phone: [facility] Work Phone: Start: 02-27-2023 End: 02-27-[address] Joan Hughes Work Phone: [facility] Work Phone: Start: 02-22-2023 End: 02-22-[address] Joan Hughes Work Phone: [facility] Start: 02-22-[address] Joan lacy Work Phone: [facility] Start: 02-21-2023 End: 02-21-[address] Joan Hughes Work Phone: [facility] Start: 02-21-[address] Joan lacy Work Phone: [facility] Start: 02-13-2023 End: 02-13-[address] Joan Hughes Work Phone: [facility] Work Phone: Start: 02-13-2023 End: 02-13-[address] Joan Hughes Work Phone: [facility] Start: 02-13-[address] Joan lacy Work Phone: [facility] Start: 02-07-2023 End: 02-07-[address] Joan Hughes Work Phone: [facility] Work Phone: Start: 02-07-2023 End: 02-07-[address] Joan Hughes Work Phone: [facility] Start: 01-24-2023 End: 01-24-[address] Joan Hughes Work Phone: [facility] Start: 01-24-[address] Joan lacy Work Phone: [facility] Start: 01-10-2023 End: 01-10-[address] Joan Hughes Work Phone: [facility] Work Phone: Start: 01-10-2023 End: 01-10-[address] Joan Hughes Work Phone: [facility] Start: 01-10-[address] Joan lacy Work Phone: [facility] Start: 01-03-2023 End: 01-03-[address] Joan Hughes Work Phone: [facility] Work Phone: Start: 12-27-2022 End: 12-27-[address] Joan Hughes Work Phone: [facility] Work Phone: Start: 12-27-2022 End: 12-27-[address] Joan Hughes Work Phone: [facility] Start: 12-27-[address] Joan lacy Work Phone: [facility] Start: 12-23-2022 End: 12-23-[address] Joan Hughes Work Phone: [facility] Work Phone: Start: 12-13-2022 End: 12-13-[address] Joan Hughes Work Phone: [facility] Work Phone: Start: 12-13-2022 End: 12-13-[address] Joan Hughes Work Phone: [facility] Start: 12-13-[address] Joan lacy Work Phone: [facility] Start: 11-29-2022 End: 11-29-[address] Joan Hughes Work Phone: [facility] Work Phone: Start: 11-29-2022 End: 11-29-[address] Joan Hughes Work Phone: [facility] Start: 11-29-[address] Joan lacy Work Phone: [facility] Start: 11-15-2022 End: 11-15-[address] Joan Hughes Work Phone: [facility] Start: 11-15-[address] Joan lacy Work Phone: [facility] Start: 11-08-2022 End: 11-08-[address] Joan Hughes Work Phone: [facility] Work Phone: Start: 11-01-2022 End: 11-01-[address] Joan Hughes Work Phone: [facility] Work Phone: Start: 11-01-2022 End: 11-01-[address] Joan Hughes Work Phone: [facility] Start: 10-27-2022 End: 10-27-[address] Joan Hughes Work Phone: [facility] Work Phone: Start: 10-18-2022 End: 10-18-[address] Joan Hughes Work Phone: [facility] Start: 10-18-[address] Joan lacy Work Phone: [facility] Start: 10-04-2022 End: 10-04-[address] Joan Hughes Work Phone: [facility] Work Phone: Start: 10-04-2022 End: 10-04-[address] Joan Hughes Work Phone: [facility] Start: 09-20-2022 End: 09-20-[address] Joan Hughes Work Phone: [facility] Work Phone: Start: 09-20-2022 End: 09-20-[address] Joan Hughes Work Phone: [facility] Start: 09-20-[address] Joan lacy Work Phone: [facility] Start: 09-06-2022 End: 09-06-[address] Joan Hughes Work Phone: [facility] Start: 09-06-2022 End: 09-06-[address] Joan Hughes Work Phone: [facility] Work Phone: Start: 09-06-2022 End: 09-06-[address] Joan Hughes Work Phone: [facility] Start: 09-06-[address] Joan lacy Work Phone: [facility] Start: 08-23-2022 End: 08-23-[address] Joan Hughes Work Phone: [facility] Start: 08-23-2022 End: 08-23-[address] Joan Hughes Work Phone: [facility] Work Phone: Start: 08-23-2022 End: 08-23-[address] Joan Hughes Work Phone: [facility] Start: 08-23-[address] Joan lacy Work Phone: [facility] Start: 08-09-2022 End: 08-09-[address] Joan Hughes Work Phone: [facility] Work Phone: Start: 08-09-2022 End: 08-09-[address] Joan Hughes Work Phone: [facility] Start: 08-09-[address] Joan lacy Work Phone: [facility] Start: 07-26-2022 End: 07-26-[address] Joan Hughes Work Phone: [facility] Work Phone: Start: 07-26-2022 End: 07-26-[address] oJan Hughes Work Phone: [facility] Start: 07-26-[address] Joan lacy Work Phone: [facility] Start: 07-13-2022 End: 07-13-[address] Joan Hughes Work Phone: [facility] Work Phone: Start: 07-13-2022 End: 07-13-[address] Joan Hughes Work Phone: [facility] Start: 07-13-[address] Joan lacy Work Phone: [facility] Start: 07-12-2022 End: 07-12-[address] Joan Hughes Work Phone: [facility] Start: 07-12-2022 End: 07-12-[address] Joan Hughes Work Phone: [facility] Work Phone: Start: 07-12-2022 End: 07-12-[address] Joan Hughes Work Phone: [facility] Start: 07-04-2022 End: 07-04-[address] Joan Hughes Work Phone: [facility] Start: 06-28-2022 End: 06-28-[address] Joan Hughes Work Phone: [facility] Work Phone: Start: 06-28-2022 End: 06-28-[address] Joan Hughes Work Phone: [facility] Start: 06-27-2022 End: 06-27-[address] Joan Hughes Work Phone: [facility] Start: 06-23-2022 End: 06-23-2022 Telemedicine consultation with patient Willard Epperson MD Work Phone: [facility] Comment on above: Multiple sclerosis, primary progressive (HCC) (Primary Dx) Start: 06-14-2022 End: 06-14-[address] Joan Hughes Work Phone: [facility] Start: 06-14-[address] Joan lacy Work Phone: [facility] Start: 06-03-2022 End: 06-03-[address] Joan Hughes Work Phone: [facility] Start: 06-03-2022 End: 06-03-[address] Joan Hughes Work Phone: [facility] Work Phone: Start: 06-03-2022 End: 06-03-[address] Joan Hughes Work Phone: [facility] Start: 06-03-[address] Joan lacy Work Phone: [facility] Start: 06-01-2022 End: 06-01-[address] Joan Hughes Work Phone: [facility] Work Phone: Start: 06-01-2022 End: 06-01-[address] Joan Hughes Work Phone: [facility] Start: 06-01-[address] Joan lacy Work Phone: [facility] Start: 05-31-[address] Joan lacy Work Phone: [facility] Start: 05-28-2022 End: 05-28-[address] Joan Hughes Work Phone: [facility] Start: 05-28-[address] Joan lacy Work Phone: [facility] Start: 05-27-2022 End: 05-27-[address] Joan Hughes Work Phone: [facility] Work Phone: Start: 05-27-2022 End: 05-27-[address] Joan Hughes Work Phone: [facility] Start: 05-27-[address] Joan lacy Work Phone: [facility] Start: 05-17-2022 End: 05-17-[address] Joan Hughes Work Phone: [facility] Work Phone: Start: 05-17-2022 End: 05-17-[address] Joan Hughes Work Phone: [facility] Start: 05-17-[address] Joan lacy Work Phone: [facility] Start: 05-03-2022 End: 05-03-[address] Joan Hughes Work Phone: [facility] Work Phone: Start: 05-03-2022 End: 05-03-[address] Joan Hughes Work Phone: [facility] Start: 04-19-2022 End: 04-19-[address] Joan Hughes Work Phone: [facility] Start: 04-19-[address] Joan lacy Work Phone: [facility] Start: 04-09-2022 End: 04-09-[address] Joan Hughes Work Phone: [facility] Start: 04-05-2022 End: 04-05-[address] Joan Hughes Work Phone: [facility] Start: 04-05-2022 End: 04-05-[address] Joan Hughes Work Phone: [facility] Work Phone: Start: 04-05-2022 End: 04-05-[address] Joan Hughes Work Phone: [facility] Start: 04-05-[address] Joan lacy Work Phone: [facility] Start: 03-22-2022 End: 03-22-[address] Joan Hughes Work Phone: [facility] Work Phone: Start: 03-22-2022 End: 03-22-[address] Joan Hughes Work Phone: [facility] Start: 03-22-[address] Joan lacy Work Phone: [facility] Start: 03-08-2022 End: 03-08-[address] Joan Hughes Work Phone: [facility] Work Phone: Start: 03-08-2022 End: 03-08-[address] Joan Hughes Work Phone: [facility] Start: 02-22-2022 End: 02-22-[address] Joan Hughes Work Phone: [facility] Work Phone: Start: 02-22-2022 End: 02-22-[address] Joan Hughes Work Phone: [facility] Start: 02-22-[address] Joan lacy Work Phone: [facility] Start: 02-17-2022 End: 02-17-[address] Joan Hughes Work Phone: [facility] Start: 02-08-2022 End: 02-08-[address] Joan Hughes Work Phone: [facility] Work Phone: Start: 02-08-2022 End: 02-08-[address] Joan Hughes Work Phone: [facility] Start: 02-08-[address] Joan lacy Work Phone: [facility] Start: 01-25-2022 End: 01-25-[address] oJan Hughes Work Phone: [facility] Work Phone: Start: 01-25-2022 End: 01-25-[address] Joan Hughes Work Phone: [facility] Start: 01-25-[address] Joan lacy Work Phone: [facility] Start: 01-14-2022 ambulatory [facility] Start: 01-11-2022 End: 01-11-[address] Joan Hughes Work Phone: [facility] Work Phone: Start: 01-11-2022 End: 01-11-[address] Joan Hughes Work Phone: [facility] Start: 12-28-2021 End: 12-28-[address] Joan Hughes Work Phone: [facility] Start: 12-14-2021 End: 12-14-[address] Joan Hughes Work Phone: [facility] Start: 12-01-2021 ambulatory Joan villanueva MD Work Phone: [facility] [place] Start: 11-30-2021 End: 11-30-[address] Joan Hughes Work Phone: [facility] Start: 11-16-2021 End: 11-16-[address] Joan Hughes Work Phone: [facility] Start: 11-16-[address] Joan lacy Work Phone: [facility] Start: 11-13-2021 End: 11-13-[address] Joan Hughes Work Phone: [facility] Start: 11-12-2021 End: 11-12-[address] Jona Hughes Work Phone: [facility] Start: 11-02-2021 End: 11-02-[address] Joan Hughes Work Phone: [facility] Start: 11-02-[address] Joan lacy Work Phone: [facility] Start: 10-25-2021 End: 10-25-[address] Joan Hughes Work Phone: [facility] Start: 10-25-[address] Joan lacy Work Phone: [facility] Start: 10-18-2021 End: 10-18-[address] Joan Hughes Work Phone: [facility] Start: 10-18-[address] Joan lacy Work Phone: [facility] Start: 10-11-2021 End: 10-11-[address] Joan Hughes Work Phone: [facility] Start: 10-08-2021 End: 10-08-[address] Joan Hughes Work Phone: [facility] Start: 09-28-2021 Non-patient / Non-visit Dr. Michael Hughes Work Phone: [facility] Start: 09-27-2021 Non-patient / Non-visit Dr. Michael Hughes Work Phone: [facility] Start: 09-26-2021 Non-patient / Non-visit Dr. Michael Hughes Work Phone: [facility] Start: 09-25-2021 Non-patient / Non-visit Dr. Michael Hughes Work Phone: [facility] Start: 09-25-2021 Non-patient / Non-visit Dr. Michael Hughes Work Phone: [facility] Start: 09-24-2021 Non-patient / Non-visit Dr. Michael Hughes Work Phone: [facility] Start: 09-24-2021 Non-patient / Non-visit Dr. Michael Hughes Work Phone: [facility] Start: 09-23-2021 Non-patient / Non-visit Dr. Michael perry ideelianalilia Work Phone: [facility] Start: 09-23-2021 Non-patient / Non-visit Dr. Michael perry [employer] Work Phone: [facility] Start: 09-22-2021 Non-patient / Non-visit Dr. Michael perry [employer] Work Phone: [facility] Start: 09-22-2021 Non-patient / Non-visit Dr. Michael perry [employer] Work Phone: [facility] Start: 09-21-2021 Coordination of care plan Mer Prado RN [facility] Start: 09-21-2021 Non-patient / Non-visit Dr. Michael perry [employer] Work Phone: [facility] Start: 09-21-2021 Non-patient / Non-visit Dr. Michael perry [employer] Work Phone: [facility] Start: 09-20-2021 Non-patient / Non-visit Dr. Michael perry [employer] Work Phone: [facility] Start: 09-20-2021 Non-patient / Non-visit Dr. Michael perry [employer] Work Phone: [facility] Start: 09-19-2021 Non-patient / Non-visit Dr. Michael perry [employer] Work Phone: [facility] Start: 09-19-2021 Non-patient / Non-visit Dr. Michael perry [employer] Work Phone: [facility] Start: 09-18-2021 Non-patient / Non-visit Dr. Michael perry [employer] Work Phone: [facility] Start: 04-15-2022 Non-patient / Non-visit Dr. Michael Hughes Work Phone: [facility] Start: 09-16-2021 Non-patient / Non-visit Dr. Michael Hughes Work Phone: [facility] [facility] Start: 09-16-2021 End: 09-28-2021 Evaluation and management of inpatient [facility] Start: 07-22-2021 ambulatory [facility] Ambulatory Start: 04-09-2021 End: 04-13-2021 ambulatory [facility] Start: 04-09-2021 End: 04-09-2021 Office outpatient visit 40 minutes Willard Epperson MD Work Phone: [facility] Comment on above: Multiple sclerosis, primary progressive (HCC) (Primary Dx); Vitamin D deficiency; Spasticity; Ataxia; Cognitive impairment Start: 04-09-2021 End: 04-09-2021 ambulatory Willard Epperson MD Work Phone: [facility] Comment on above: Multiple sclerosis, primary progressive (HCC) (Primary Dx); Multiple sclerosis (HCC) Start: 04-08-2021 Coordination of care plan Zahra Pratt RN [facility] Start: 01-08-2021 End: 01-08-2021 Refill Danyell Cardoso MA [facility] Comment on above: Vitamin D deficiency Start: 10-29-2020 End: 10-29-2020 Orders Only Willard Epperson MD Work Phone: [facility] Comment on above: Multiple sclerosis, primary progressive (HCC) (Primary Dx) Start: 10-16-2020 End: 10-20-2020 ambulatory WILLARD EPPERSON [facility] Start: 10-16-2020 End: 10-16-2020 Office outpatient visit 25 minutes Willard Epperson MD Work Phone: [facility] Comment on above: Multiple sclerosis, primary progressive (HCC) (Primary Dx); Vitamin D deficiency; Paresis of lower extremity (HCC); History of gait disorder Start: 10-16-2020 End: 10-16-2020 ambulatory WILLARD EPPERSON [facility] Start: 10-16-2020 End: 10-16-2020 ambulatory Willard Epperson MD Work Phone: [facility] Comment on above: Multiple sclerosis, primary progressive (HCC) (Primary Dx) Start: 10-13-2020 End: 10-13-2020 Orders Only Willard Epperson MD Work Phone: [facility] Start: 10-12-2020 End: 10-12-2020 Coordination of care plan Fifi Guillermo RN [facility] Start: 10-07-2020 End: 10-07-2020 Coordination of care plan Fifi Guillermo RN [facility] Start: 08-06-2020 End: 08-06-2020 Orders Only Hermila Bowen Work Phone: [facility] Start: 04-21-2020 End: 04-21-2020 Documentation procedure Jeanne Hilario [facility] Start: 04-17-2020 End: 04-17-2020 ambulatory WILLARD EPPERSON [facility] Start: 04-17-2020 End: 04-17-2020 Office outpatient visit 25 minutes Willard Epperson Work Phone: [facility] Comment on above: Multiple sclerosis ( HCC) (Primary Dx); Fatigue, unspecified type; Orthostasis; Falls frequently Start: 04-17-2020 End: 04-17-2020 Patient encounter procedure Willard Epperson Work Phone: [facility] Comment on above: Multiple sclerosis, primary progressive (HCC) (Primary Dx) Start: 04-13-2020 End: 04-13-2020 Coordination of care plan Amrit Hilario [facility] Start: 10-29-2019 End: 10-29-2019 Admission to [facility] Start: 10-24-2019 End: 10-24-2019 Documentation procedure Jeanne Hilario [facility] Start: 10-18-2019 End: 10-18-2019 Phys/qhp telephone evaluation 11-20 min Willard Epperson Work Phone: [facility] Comment on above: Multiple sclerosis ( HCC) Start: 10-18-2019 End: 10-18-2019 Patient encounter procedure Willard Epperson Work Phone: [facility] Comment on above: Multiple sclerosis, primary progressive (HCC) (Primary Dx) Start: 10-18-2019 End: 10-18-2019 Subsequent hospital visit by physician Willard Epperson Work Phone: [facility] Comment on above: Multiple sclerosis ( HCC) Start: 10-09-2019 End: 10-09-2019 Coordination of care plan Amrit Hilario [facility] Start: 04-18-2019 End: 04-18-2019 Documentation procedure Jeanne Hilario [facility] Start: 04-12-2019 End: 04-12-2019 Office outpatient visit 25 minutes Willard Epperson Work Phone: [facility] Comment on above: Multiple sclerosis ( HCC) (Primary Dx) Start: 04-12-2019 End: 04-12-2019 Patient encounter procedure Willard Epperson Work Phone: [facility] Comment on above: Multiple sclerosis, primary progressive (HCC) (Primary Dx); Multiple sclerosis (HCC) Start: 04-11-2019 End: 04-11-2019 Coordination of care plan Melva Zuleta [facility] Start: 10-12-2018 End: 10-12-2018 Patient encounter procedure Willard Epperson Work Phone: [facility] Comment on above: Multiple sclerosis, primary progressive (HCC) (Primary Dx) Start: 09-28-2018 End: 09-28-2018 Office outpatient visit 25 minutes Willard Epperson Work Phone: [facility] Comment on above: Multiple sclerosis ( HCC) (Primary Dx); Therapeutic drug monitoring Start: 09-28-2018 End: 09-28-2018 Patient encounter procedure Willard Epperson Work Phone: [facility] Comment on above: Multiple sclerosis ( HCC) Start: 01-23-2018 Patient encounter Jeanne Hilario [facility] Start: 01-19-2018 End: 01-19-2018 Office outpatient visit 40 minutes C Willard Epperson Work Phone: [facility] Start: 10-11-2017 End: 10-11-2017 Ambulatory Murtaza Fsih Work Phone: [facility] Start: 08-25-2017 Office/outpatient vi sit, est, level 4 Willard Epperson Work Phone: [facility] Start: 08-11-2017 Ambulatory Jeanne Hilario [facility] Start: 05-25-2017 Ambulatory Jeanne Hilario [facility] Start: 05-25-2017 Office/outpatient vi sit, est, level 4 Willard Epperson Work Phone: [facility] Start: 05-04-2017 Ambulatory Murtaza muñoz Work Phone: [facility] Start: 04-13-2017 Ambulatory Murtaza muñoz Work Phone: [facility] Start: 02-13-2017 End: 02-13-2017 Documentation procedure Jeanne Hilario [facility] Start: 02-13-2017 Office/outpatient vi sit, est, level 4 Willard Epperson Work Phone: [facility] Start: 01-25-2017 Ambulatory Jeanne Sulaiman [facility] Procedures Date Procedure Procedure Detail Performing Clinician Start: 12-13-[address] Joan Hughes MD Work Phone: Start: 12-13-2024 Urnls dip stick/tabl et reagent auto microscopy Dr. Joan Hughes MD Work Phone: Start: 11-15-[address] Joan Hughes MD Work Phone: Start: 11-15-2024 Urnls dip stick/tabl et reagent [...] Hughes MD Work Phone: Start: 10-01-2018 [address]oscopy [address] Start: 09-28-2018 Creatinine [Mass/vol ume] in Blood [...] 10-01-2028 Screening for malignant neoplasm of colon [facility] Start: 11-15-2024 Bacteria identified in Urine by Culture Urine Culture [facility] Start: 11-15-2024 [facility] Start: 10-02-2023 Colonoscopy COLONOSCOPY [facility] Start: 10-02-2023 COLORECTAL CANCER SCREENING COLORECTAL CANCER SCREENING [facility] Start: 02-08-2022 Tetanus vaccination [facility] Start: 02-08-2022 Urine microalbumin profile DTAP,TDAP,TD (2 - Td or Tdap) [facility] Start: 02-03-2022 Influenza vaccination [facility] Start: 09-28-2021 Patient discharge [facility] Work Phone: Start: 09-28-2021 End: 09-28-2021 ambulatory [facility] Start: 09-28-2021 End: 09-28-2021 Patient encounter procedure [facility] Start: 09-27-2021 End: 09-27-2021 Patient encounter procedure [facility] Start: 09-21-2021 Following clinical pathway protocol [facility] Work Phone: Start: 09-21-2021 [facility] Work Phone: Start: 09-20-2021 Care planning and problem solving actions [facility] Work Phone: Start: 09-18-2021 Catheterization of vein [facility] Work Phone: Start: 09-18-2021 Consultation [facility] Work Phone: Start: 09-18-2021 Incentive spirometry [facility] Work Phone: Start: 09-18-2021 Insertion of catheter into peripheral vein [facility] Work Phone: Start: 09-18-2021 Measuring intake and output [facility] Work Phone: Start: 09-18-2021 Oxygen therapy [facility] Work Phone: Start: 09-18-2021 Physiotherapy of chest [facility] Work Phone: Start: 09-18-2021 Providing care according to standard [facility] Work Phone: Start: 09-18-2021 Vital signs measurements [facility] Work Phone: Start: 09-18-2021 [facility] Work Phone: Start: 09-18-2021 Care planning and problem solving actions [facility] Work Phone: Start: 09-18-2021 Continuous positive airway pressure ventilation treatment [facility] Work Phone: Start: 09-17-2021 Speech therapy assessment [facility] Work Phone: Start: 09-17-2021 [facility] Work Phone: Start: 09-16-2021 Ambulation without limitation [facility] Work Phone: Start: 09-16-2021 Assessment of risk of venous thromboembolism [facility] Work Phone: Start: 09-16-2021 Insertion of catheter into peripheral vein [facility] Work Phone: Start: 09-16-2021 Providing care according to standard [facility] Work Phone: Start: 09-16-2021 Referral to occupational therapist [facility] Work Phone: Start: 09-16-2021 Referral to service [facility] Work Phone: Start: 09-16-2021 [facility] Work Phone: Start: 09-16-2021 Following clinical pathway protocol [facility] Work Phone: Start: 09-16-2021 Admission procedure [facility] Work Phone: Start: 09-16-2021 Bacteria identified in Blood by Culture Blood Culture [facility] Work Phone: Start: 09-16-2021 Bacteria identified in Urine by Culture Urine Culture [facility] Work Phone: Start: 04-23-2021 COVID-19 Vaccine (3 - Booster for Pfizer series) COVID-19 Vaccine (3 - Booster for Pfizer series) [facility] Start: 04-16-2021 End: 04-16-2021 ambulatory 04/16/2021 Infusion/Injection Infusion Therapy [facility] Start: 04-09-2021 End: 04-09-2021 ambulatory 04/09/2021 Infusion/Injection Infusion Therapy [facility] Start: 04-09-2021 End: 04-09-2021 Patient encounter procedure 04/09/2021 Office Visit Neurology Willard Epperson MD [address] [facility] [address] [place] [id number] [phone] [facility] Start: 03-23-2021 COVID-19 Vaccine (3 - Booster for Pfizer series) COVID-19 Vaccine (3 - Booster for Pfizer series) [facility] Start: 03-10-2021 Screening for malignant neoplasm of breast Mammogram [facility] Start: 03-10-2021 Screening mammography Mammogram [facility] Start: 03-05-2021 End: 10-19-2021 MR Brain With And Without Contrast MR Brain With And Without Contrast Imaging Routine Multiple sclerosis, primary progressive (HCC) Expected: 03/05/2021, Expires: 10/19/2021 [facility] Comment on above: Expected: 03/05/2021, Expires: 2 Start: 03-05-2021 End: 10-19-2021 MRI of cervical spine MR Cervical Spine With And Without Contrast Imaging Routine Multiple sclerosis, primary progressive (HCC) Expected: 03/05/2021, Expires: 10/19/2021 [facility] Comment on above: Expected: 03/05/2021, Expires: 2 Start: 03-05-2021 End: 10-19-2021 MRI of thoracic spine MR Thoracic Spine With And Without Contrast Imaging Routine Multiple sclerosis, primary progressive (HCC) Expected: 03/05/2021, Expires: 10/19/2021 [facility] Comment on above: Expected: 03/05/2021, Expires: 2 Start: 02-03-2021 Influenza vaccination [facility] Start: 12-16-2020 COVID-19 Vaccine (3 - Booster for Pfizer series) COVID-19 Vaccine (3 - Booster for Pfizer series) [facility] Start: 10-19-2020 COVID-19 Vaccine (2 - Pfizer 2-dose series) COVID-19 Vaccine (2 - Pfizer 2-dose series) [facility] Start: 10-16-2020 End: 10-16-2020 Infusion/Injection [facility] Start: 04-17-2020 End: 04-17-2020 Office Visit 04/17/2020 Office Visit Neurology Willard Epperson MD [address] [address] [phone] [facility] Start: 04-17-2020 End: 04-17-2020 Infusion/Injection [facility] Start: 02-04-2020 Influenza vaccination given [facility] Start: 01-22-2020 Mammography MAMMOGRAM [facility] Start: 01-15-2020 Adult depression screening assessment DEPRESSION SCREENING [facility] Start: 10-18-2019 End: 10-18-2019 Office Visit 10/18/2019 Office Visit Neurology Willard Epperson MD [address] [address] [phone] [facility] Start: 10-18-2019 End: 10-18-2019 Infusion/Injection [facility] Start: 10-18-2019 End: 10-18-2019 Appointment 10/18/2019 Appointment Radiology Willard Epperson MD [address] [address] [phone] [facility] Start: 04-12-2019 End: 04-12-2019 Infusion/Injection 04/12/2019 Infusion/Injection Infusion Therapy [facility] Start: 03-11-2019 End: 03-11-2019 Office Visit 03/11/2019 Office Visit Neurology Willard Epperson MD [address] [facility] [address] [address] [phone] [facility] Start: 02-04-2019 DIABETES SCREEN DIABETES SCREEN [facility] Start: 02-03-2019 Influenza vaccination given [facility] Start: 10-12-2018 End: 10-12-2018 Infusion/Injection 10/12/2018 Infusion/Injection Infusion Therapy Willard Epperson MD [address] [facility] [address] [address] [phone] [facility] Start: 04-13-2018 End: 04-13-2018 Ambulatory 04/13/2018 Office Visit Neurology Willard Epperson MD [address] [address] [phone] [facility] Start: 04-13-2018 End: 04-13-2018 Ambulatory 04/13/2018 Infusion/Injection Infusion Therapy [facility] Start: 02-03-2018 Influenza vaccination [facility] Start: 02-03-2018 Influenza vaccination given SEQUENTIAL INFLUENZA VACCINE (#1) [facility] Start: 01-19-2018 End: 01-19-2018 Ambulatory 01/19/2018 Office Visit Neurology Willard Epperson MD [address] [facility] [address] [address] [phone] [facility] Start: 10-11-2017 Ambulatory 10/11/2017 Infusion/Injection Infusion Therapy [facility] Start: 08-25-2017 Ambulatory 08/25/2017 Office Visit Neurology Willard Epperson MD [address] [facility] [address] [address] [phone] [facility] Start: 08-17-2017 Ambulatory 08/17/2017 Appointment Radiology Willard Epperson MD [address] [facility] [address] [address] [phone] [facility] Start: 05-25-2017 Ambulatory 05/25/2017 Office Visit Neurology Willard Epperson MD [address] [facility] [address] [place] [address] [phone] [facility] Start: 05-04-2017 Ambulatory 05/04/2017 Infusion/Injection Infusion Therapy [facility] Start: 02-13-2017 Ambulatory 02/13/2017 Office Visit Neurology Willard Epperson MD [address] [facility] [address] [facility] [address] [place] [address] [phone] [facility] Start: 02-03-2017 Influenza vaccination SEQUENTIAL INFLUENZA VACCINE (#1) [facility] Work Phone: Start: 02-03-2017 SEQUENTIAL INFLUENZA VACCINE (#1) SEQUENTIAL INFLUENZA VACCINE (#1) [facility] Work Phone: Start: 03-31-2016 HPV TESTING HPV TESTING [facility] Start: 03-31-2016 PAP TESTING PAP TESTING [facility] Start: 02-09-2016 LIPID SCREEN LIPID SCREEN [facility] Start: 02-21-2008 Administration of herpes zoster vaccine Zoster Vaccines (1 of 2) [facility] Start: 02-21-2008 Screening for malignant neoplasm of colon [facility] Start: 02-21-2008 SHINGRIX VACCINE (1 of 2) SHINGRIX VACCINE (1 of 2) [facility] Start: 2003 COLOGUARD (FIT-DNA) COLOGUARD (FIT-DNA) [facility] Start: [address] COLONOGRAPHY [facility] Start: 2003 FECAL OCCULT BLOOD FECAL OCCULT BLOOD [facility] Start: 2003 SIGMOIDOSCOPY SIGMOIDOSCOPY [facility] Start: 02-21-1976 HEPATITIS C SCREENING HEPATITIS C SCREENING [facility] Start: 02-21-1976 HIV SCREENING HIV SCREENING [facility] Start: 1974 COVID-19 Vaccine (1 of 2) COVID-19 Vaccine (1 of 2) [facility] Start: 1974 COVID-19 Vaccine (1) COVID-19 Vaccine (1) [facility] Start: 1970 Adolescent depression screening assessment Depression Screening (PHQ9) [facility] Start: 1970 Depression screening using PHQ-9 (Patient Health Questionnaire 9) score [facility] Start: 1961 History and physical examination, annual for health maintenance Wellness Visit [facility] Start: 1958 Protein mass conc Mammogram [facility] Start: 1958 Screening for malignant neoplasm of colon [facility] Start: 1958 Screening mammography Mammogram [facility] Start: 1958 Colonoscopy COLONOSCOPY [facility] Work Phone: Start: 1958 Cytopathology procedure, preparation of smear, genital source PAP SMEAR [facility] Work Phone: Start: 1958 End: 1958 Screening colonoscopy COLONOSCOPY [facility] Work Phone: Start: 1958 End: 1958 Screening for malignant neoplasm of cervix PAP SMEAR [facility] Start: 1958 TETANUS EVERY 10 YR TETANUS EVERY 10 YR [facility] Work Phone: Start: 1958 End: 1958 Tetanus vaccination TETANUS EVERY 10 YR [facility] Work Phone: End: 04-17-2021 Cobalamin (Vitamin B12) [Mass/Vol] Vitamin B12 Lab Routine Fatigue, unspecified type 1 Occurrences starting 04/17/2020 until 04/17/2021 [facility] Comment on above: 1 Occurrences starting 04/17/2020 until 04/17/2021 End: 04-17-2021 Complete blood count with white cell differential, manual CBC and Differential Lab Routine Multiple sclerosis, primary progressive (HCC) 1 Occurrences starting 04/17/2020 until 04/17/2021 [facility] Comment on above: 1 Occurrences starting 04/17/2020 until 04/17/2021 End: 10-02-2019 Complete blood count with white cell differential, manual CBC and Differential Routine Therapeutic drug monitoring 1 Occurrences starting 10/01/2018 until 10/02/2019 [facility] Comment on above: 1 Occurrences starting 10/01/2018 until 10/02/2019 End: 10-16-2021 Complete blood count with white cell differential, manual CBC and Differential Lab Routine Multiple sclerosis, primary progressive (HCC) 1 Occurrences starting 10/16/2020 until 10/16/2021 [facility] Comment on above: 1 Occurrences starting 10/16/2020 until 10/16/2021 End: 04-17-2021 Comprehensive metabolic 2000 panel Comprehensive Metabolic Panel Lab Routine Multiple sclerosis, primary progressive (HCC) 1 Occurrences starting 04/17/2020 until 04/17/2021 [facility] Comment on above: 1 Occurrences starting 04/17/2020 until 04/17/2021 End: 10-02-2019 Comprehensive metabolic 2000 panel Comprehensive Metabolic Panel Routine Therapeutic drug monitoring 1 Occurrences starting 10/01/2018 until 10/02/2019 [facility] Comment on above: 1 Occurrences starting 10/01/2018 until 10/02/2019 End: 05-25-2018 Comprehensive metabolic panel [AGGREGATE] Comprehensive Metabolic Panel Routine Multiple sclerosis (HCC) 1 Occurrences starting 05/25/2017 until 05/25/2018 [facility] Work Phone: Comprehensive metabo lic panel [AGGREGATE] Comprehensive Metabolic Panel Routine Multiple sclerosis (HCC) 05/25/2017 10:22 AM EST [facility] Work Phone: End: 10-16-2021 Hepatic function 2000 panel - Serum or Plasma Hepatic Function Panel Lab Routine Multiple sclerosis, primary progressive (HCC) 1 Occurrences starting 10/16/2020 until 10/16/2021 [facility] Comment on above: 1 Occurrences starting 10/16/2020 until 10/16/2021 End: 04-17-2021 Immunoglobulin measurement IgG, IgA, IgM Immunoglobulins Lab Routine Multiple sclerosis, primary progressive (HCC) 1 Occurrences starting 04/17/2020 until 04/17/2021 [facility] Comment on above: 1 Occurrences starting 04/17/2020 until 04/17/2021 End: 10-16-2021 Immunoglobulin measurement IgG, IgA, IgM Immunoglobulins Lab Routine Multiple sclerosis, primary progressive (HCC) 1 Occurrences starting 10/16/2020 until 10/16/2021 [facility] Comment on above: 1 Occurrences starting 10/16/2020 until 10/16/2021 End: 09-28-2018 MR Brain With And Without Contrast MR Brain With And Without Contrast Routine Multiple sclerosis (HCC) Once for 1 Occurrences starting 09/28/2018 until 09/28/2018 [facility] Comment on above: Once for 1 Occurrences starting 09/29/19 19 until 09/28/2018 MR Brain With And Without Contrast MR Brain With And Without Contrast Routine Multiple sclerosis (HCC) 09/28/2018 1:06 PM EDT [facility] End: 08-25-2018 OCT, Optic Nerve - OU - Both Eyes OCT, Optic Nerve - OU - Both Eyes Routine Multiple sclerosis (HCC) 1 Occurrences starting 08/25/2017 until 08/25/2018 [facility] Patient referral [facility] Work Phone: End: 12-31-2022 Screening mammography bi 2-view breast inc cad HUBERT SCREENING Radiology Routine Encounter for screening mammogram for breast cancer 1 Occurrences starting 12/01/2021 until 12/31/2022 [facility] Work Phone: Comment on above: 1 Occurrences starting 12/01/2021 until 12/31/2022 End: 04-17-2021 TSH Qn TSH with Reflex Free T4 Lab Routine Fatigue, unspecified type 1 Occurrences starting 04/17/2020 until 04/17/2021 [facility] Comment on above: 1 Occurrences starting 04/17/2020 until 04/17/2021 Urine culture [facility] End: 04-17-2021 Vitamin D, 25-hydroxy measurement Vitamin D, Total, 25-OH Lab Routine Multiple sclerosis, primary progressive (HCC) 1 Occurrences starting 04/17/2020 until 04/17/2021 [facility] Comment on above: 1 Occurrences starting 04/17/2020 until 04/17/2021 End: 10-01-2019 Vitamin D, 25-hydroxy measurement Vitamin D, Total, 25-OH Routine Therapeutic drug monitoring 1 Occurrences starting 10/01/2018 until 10/01/2019 [facility] Comment on above: 1 Occurrences starting 10/01/2018 until 10/01/2019 End: 05-25-2018 Vitamin D, Total, 25-OH Vitamin D, Total, 25-OH Routine Multiple sclerosis (HCC) 1 Occurrences starting 05/25/2017 until 05/25/2018 [facility] Work Phone: Vitamin D, Total, 25-OH Vitamin D, Total, 25-OH Routine Multiple sclerosis (HCC) 05/25/2017 10:22 AM EST [facility] Work Phone: Immunizations Immunization Date Immunization Notes Care Provider Iva harris 10-21-2020 COVID-19 vaccine, ag e 12+ yr (PFIZER-BIONTECH - PURPLE TOP) Joan Hughes MD Work Phone: [facility] Work Phone: 09-28-2020 COVID-19 vaccine, ag e 12+ yr (PFIZER-BIONTECH - PURPLE TOP) Joan Hughes MD Work Phone: [facility] Work Phone: 02-09-2017 AFLURIA QUAD 2016- 18, PF, syringe; Translations: [Afluria Quad (Pf) 60 McG/0.5 Ml Intramuscular Syringe] Jeanne Hilario [facility] Work Phone: 02-08-2016 influenza, seasonal, injectable Joan Hughes MD Work Phone: [facility] 02-22-2013 influenza virus vaccine, unspecified formulation Joan Hughes MD Work Phone: [facility] 03-03-2012 influenza virus vaccine, unspecified formulation Joan Hughes MD Work Phone: [facility] 02-09-2012 tetanus toxoid, redu deniz diphtheria toxoid, and acellular pertussis vaccine, adsorbed Joan Hughes MD Work Phone: [facility] 04-07-2010 pneumococcal polysaccharide vaccine, 23 valent Joan Hughes MD Work Phone: [facility] 03-25-2008 influenza virus vaccine, unspecified formulation Joan Hughes MD Work Phone: [facility] 04-03-2007 influenza virus vaccine, unspecified formulation Joan Hughes MD Work Phone: [facility] Work Phone: 04-17-2006 influenza virus vaccine, unspecified formulation Joan Hughes MD Work Phone: [facility] 05-17-2005 influenza virus vaccine, unspecified formulation Joan Hughes MD Work Phone: [facility] Work Phone: Payers Date Payer Category Payer Self-pay [id number] Unknown [id number] 2013 Unknown [id number] 2. 16.840.1.247871.3.249.13 2013 Unknown [id number] 2. 16.840.1.639575.3.249.13 2013 Unknown [id number] 1.2.840.181708.1.13.385.2.7.3.014718.315 2013 Unknown 1.2.840.731605. 1.13.385.2.7.3.346634.315 1958 Unknown [id number] 2.16. 840.1.632329.3.579.2.900 1960 Unknown [id number] 2.16. 840.1.112008.3.579.2.900 1958 Unknown [id number] 2.16. 840.1.443909.3.579.2.900 1958 Unknown [id number] 2.16. 840.1.101921.3.579.2.900 1958 Unknown [id number] 2.16. 840.1.732257.3.579.2.900 1958 Unknown [id number] 2.16. 840.1.309443.3.579.2.900 1958 Unknown [id number] 2.16. 840.1.231697.3.579.2.900 1958 Unknown [id number] 2.16. 840.1.440856.3.579.2.900 1958 Unknown [id number] 2.16. 840.1.143535.3.579.2.900 1958 Unknown [id number] 2.16. 840.1.640187.3.579.2.903 1960 Unknown [id number] 2.16. 840.1.381985.3.579.2.903 Medicare MEDICARE PART A B [id number] Unknown [id number] 2.16.8 40.1.584810.3.579.2.462 Unknown [id number] 2.16.8 40.1.259612.3.579.2.462 Unknown [id number] 2.16.8 40.1.223125.3.579.2.462 Unknown [id number] 2.16.8 40.1.759640.3.579.2.462 Unknown [id number] 2.16.8 40.1.855747.3.579.2.462 Unknown [id number] 2.16.8 40.1.226883.3.579.2.462 Unknown [id number] 2.16.8 40.1.730255.3.579.2.462 Unknown [id number] 2.16.8 40.1.428667.3.579.2.462 Unknown [id number] 2.16.8 40.1.485327.3.579.2.462 Unknown [id number] 2.16.8 40.1.284646.3.579.2.462 Unknown [id number] 2.16.8 40.1.699042.3.579.2.462 Unknown [id number] 2.16.8 40.1.331461.3.579.2.462 Unknown [id number] 2.16.8 40.1.191267.3.579.2.462 Unknown [id number] 2.16.8 40.1.851444.3.579.2.462 Unknown [id number] 2.16.8 40.1.571648.3.579.2.462 Unknown [id number] 2.16.8 40.1.718441.3.579.2.462 Unknown [id number] 2.16.8 40.1.722255.3.579.2.462 Unknown [id number] 2.16.8 40.1.649768.3.579.2.462 Unknown [id number] 2.16.8 40.1.835112.3.579.2.462 Unknown [id number] 2.16.8 40.1.392383.3.579.2.462 Unknown [id number] 2.16.8 40.1.681813.3.579.2.462 Unknown [id number] 2.16.8 40.1.240122.3.579.2.462 Unknown [id number] 2.16.8 40.1.028852.3.579.2.462 Unknown [id number] 2.16.8 40.1.324561.3.579.2.462 Unknown [id number] 2.16.8 40.1.919570.3.579.2.462 Unknown [id number] 2.16.8 40.1.228833.3.579.2.462 Unknown [id number] 2.16.8 40.1.169357.3.579.2.462 Unknown [id number] 2.16.8 40.1.668611.3.579.2.462 Unknown [id number] 2.16.8 40.1.560766.3.579.2.462 Unknown [id number] 2.16.8 40.1.165351.3.579.2.462 Unknown [id number] 2.16.8 40.1.747625.3.579.2.462 Unknown [id number] 2.16.8 40.1.041240.3.579.2.462 Unknown [id number] 2.16.8 40.1.810723.3.579.2.462 Unknown [id number] 2.16.8 40.1.079056.3.579.2.462 Unknown [id number] 2.16.8 40.1.784613.3.579.2.462 Unknown [id number] 2.16.8 40.1.368577.3.579.2.462 Unknown [id number] 2.16.8 40.1.457043.3.579.2.462 Unknown [id number] 2.16.8 40.1.531879.3.579.2.462 Unknown [id number] 2.16.8 40.1.869450.3.579.2.462 Unknown [id number] 2.16.8 40.1.360756.3.579.2.462 Social History Date Type Detail Facility Start: 10-11-2017 End: 07-05-2022 Tobacco smoking status NHIS Never smoker [facility] Work Phone: Start: 1960 Sex Assigned At Not on file O [facility] Work Phone: Start: 04-16-2019 End: 07-14-2021 Alcohol intake Current non-drinker of alcohol (finding) [facility] Exposure to SARS-CoV -2 (event) Not sure [facility] Start: 04-13-2017 End: 10-18-2019 Tobacco use and exposure Never used [facility] Start: 09-16-2021 End: 07-05-2022 Tobacco smoking status NHIS Unknown if ever smoked [facility] Start: 01-25-2020 Alone [facility] Start: 1960 Sex Assigned At Female W [facility] Start: 09-05-2024 End: 09-06-2024 Sex Female (finding) [facility] Goals Date Patient Goal Desired Activity /State Functional Status Date Assessment Result Facility 09-28-2021 Functional status Patient Activity Chair [facility] Work Phone: 09-28-2021 Functional status Activity Abili ty With Assist of 2 [facility] Work Phone: 09-28-2021 Functional status Rolling Walker [facility] Work Phone: Mental Status Date Assessment Result Facility 09-28-2021 Cognitive function Voice/Name [facility] Work Phone: 09-16-2021 Cognitive function Level Of Cons ciousness Awake;Alert;Appropriate;Follow s Commands [facility] Work Phone: Clinical Notes 10-16-2020 to 11-09-2022 Willard Epperson MD - 06/23/2022 11:31 AM ESTPatient InstructionsPatient InstructionsWillard Epperson MD - 04/09/2021 8:00 AM EDTSmithWillard MD - 10/29/2020 10:03 AM EDT Note Date & Type Note Facility 11-09-2022 Note Patient Outreach (IN TMMN) BRITNEY PERAZA ([id number]) 1960 F TXT Date Time Provider Department [...] screening mammogram for breast cancer [Z12.31] Order(s):[facility] SCREENING [[id number]] Order #: [id number] FUTURE Prescriptions as of 11/14/2022 - atenolol [...] sclerosis) (HCC) [G35] 01/14/2019 Encounter Status:Closed by Caspian LearningCHRIS on 11/14/22 [facility] 06-23-2022 History of Present illness Narrative Left voicemail message with patient. Was not sure if she wanted to continue to follow-up in clinic. Would be happy to see her back, even if she is no longer on disease modifying therapy to work on symptomatic management. Provided with the number for the front office attendant if she is interested in rescheduling. documented in this encounter [facility] 12-01-2021 Note Patient Outreach (IN TMMN) BRITNEY PERAZA ([id number]) 1960 F TXT Date Time Provider Department 12/01/21 ELDERBROCK, JOAN D INTMMN During your visit today, we recorded the [...] screening mammogram for breast cancer [Z12.31] Order(s):[facility] SCREENING [[id number]] Order #: [id number] FUTURE Prescriptions as of 12/06/2021 - atenolol [...] 01/14/2019 Encounter Status:Closed by KODAK, PRODUSER on 12/06/21 [facility] 04-09-2021 Instructions Zahra Pratt RN - [...] the medicines you take, including prescription and csqx-qhf-bddjpht medicines. vitamins, and herbal supplements. How will [...] may report side effects to FDA at 7-619-DVS-2298. General information about the safe and effective [...] sodium acetate trihydrate, trehalose dihydrate. Manufactured by: [employer] A Member of the [employer], [address] [place] [address], [place] [address] [place]. License No. [id number] For more information, go to www.Vox[employer] or call . This Medication Guide has been approved by the U.S. Food and Drug Administration documented in this encounter [facility] 04-09-2021 Instructions Willard Epperson MD - 04/09/2021 8:16 AM EDT Central [phone] [phone] documented in this encounter [facility] 04-09-2021 History of Present illness Narrative Images from the original note were not included. Patient Name: Britney Peraza : 1960 MR #: [id number] Other Physicians: Joan Hughes MD (Primary Care Physician) [facility] Follow-up Visit 04/09/2021 [...] discussed above. I recommend continuing Vitamin D3 86450 IU once every other daily. Goal levels [...] me in 6 months. Willard Epperson MD [facility] Neurological Physicians Neuroimmunology/ Neuroinfectious Disease ([facility], and [place] [facility]) General Neurology ([facility]) ([place]) [place] Address: [address] [place] [address], [address] [place] [address] [place] Address [address] [facility], [address] [place] [address] [facility] [address] [place] [address], [place] [address] Chief Complaint: Neuro-immunology clinic follow up INTERIM HISTORY Britney Peraza is here for follow up. Last was seen 10/23. Accompanied by her sister today. She has her infusion scheduled later this morning. No new symptoms to report, though her sister feels she minimizes worsening gait impairment. We had placed orders for [facility] in [facility]. They had been providing her with a [...] Swelling Naproxen Sodium Hives, Itching and Swelling Msaidqhzcigw-Mbu-Odejvwty tachycardia tachycardia Penicillins Hives Sulfa (Sulfonamide Antibiotics) Hives Tetracycline Hives Current Outpatient Medications Medication Sig Dispense Refill acetaminophen (TYLENOL) 500 MG tablet Take 500 mg by mouth every 6 (six) hours as needed for pain. AFLURIA QUAD [id number], PF, syringe ADMINISTERED AT DDM 0 atenolol [...] documentation: 40 minutes. documented in this encounter [facility] 01-08-2021 Miscellaneous Notes Changed pharmacies documented in this encounter [facility] 10-29-2020 History of Present illness Narrative Are we able to fax this order for home health to [facility] in [place]? Contact is: Toll Free [phone] Also, can we reschedule her Apr visit [...] her regarding this? documented in this encounter [facility] 10-16-2020 History of Present illness Narrative Images from the original note were not included. Patient Name: Britney Peraza : 1960 MR #: [id number] Other Physicians: Joan Hughes MD (Primary Care Physician) [facility] Follow-up Visit 10/16/2020 [...] this time I recommend continuing Vitamin D3 84676 IU once daily. Goal levels of Vitamin [...] with me April 2021. Willard Epperson MD [facility] Neurological Physicians Neuroimmunology/ Neuroinfectious Disease ([facility] [place] [facility]) General Neurology ([facility]) ([facility]) [facility] Address: [address] [place] [address], [address] [place] [address] [place] Address [address], [address] [place] [address] [facility] [address] [place] [address], [place] [address] Chief Complaint: Neuro-immunology clinic follow up INTERIM [...] Swelling Naproxen Sodium Hives, Itching and Swelling Kkkfmuvarsjr-Vle-Onicqmvf tachycardia tachycardia Penicillins Hives Sulfa (Sulfonamide Antibiotics) Hives Tetracycline Hives Current Outpatient Medications Medication Sig Dispense Refill acetaminophen (TYLENOL) 500 MG tablet Take 500 mg by mouth every 6 (six) hours as needed for pain. AFLURIA QUAD [id number], PF, syringe ADMINISTERED AT DDM 0 atenolol [...] of T2/FLAIR signal abnormalities compatible with demyelination. [employer] Workstation ID: [id number] Results for orders placed [...] air cells are clear. Nasopharynx is normal. Street Commissioner spaces are normal. Orbital contents are normal. [...] lesions. 3. Stable brain atrophy. [facility]/[employer] Workstation ID: [id number] Total time spent, including over 50% or more spent face to face with the patient discussing the risk and benefits of any medications, reviewing available data and counseling patient on treatment plan was 30 minutes. The aforementioned impression & plan were discussed with the patient. documented in this encounter [facility] 10-16-2020 Instructions LiangLata RN - 10/16/2020 [...] Pt voiced understanding. documented in this encounter [facility] 10-16-2020 Instructions Lata Liang RN - [...] Pt voiced understanding. documented in this encounter [facility] 10-16-2020 History of Present illness Narrative Labs obtained with insertion of PIV, which will be used for the infusion today. Specimens labeled per policy and taken to the lab in the [facility] for processing. documented in this encounter [facility] 10-16-2020 History of Present illness Narrative Labs obtained with insertion of PIV, which will be used for the infusion today. Specimens labeled per policy and taken to the lab in the [facility] for processing. documented in this encounter [facility] Evaluation note Diagnosis Multiple sclerosis, primary progressive (HCC)- [facility], primary progressive (H[facility])- Primary [facility] Multiple [facility], primary progressive (HCC)- Primary Vitamin D deficiency Paresis of lower extremity (HCC) Unspecified paralysis History of gait disorder [facility] Multiple sclerosis, primary progressive (HCC)- Primary documented in this encounter [facility] note* Diagnosis Vitamin D deficiency documented in this encounter [facility] note* Diagnosis Multiple sclerosis, primary progressive (HCC)- Primary Multiple sclerosis (HCC) Multiple sclerosis documented in this encounter [facility] note* Diagnosis Multiple sclerosis, primary progressive (HCC)- Primary Vitamin D deficiency Spasticity Abnormal involuntary movements Ataxia Lack of coordination Cognitive impairment Unspecified persistent mental disorders due to conditions classified elsewhere documented in this encounter [facility] note* Diagnosis Onset Date Resolution Status Acute cystitis acute Complicated urinary tract infection acute Infectious encephalopathy ac isha Severe sepsis acute [facility] Work Phone: Evaluation note* Diagnosis Onset Date Resolution Status Acute respiratory failure with hypoxia acute Complicated urinary tract infection acute COVID-19 acute Debility acute Lactic acidosis acute Sepsis acute [facility] Work Phone: Evaluation note* Diagnosis Onset Date Resolution Status Debility acute Acute respiratory failure with hypoxia resolved Complicated urinary tract infection resolved COVID-19 resolved Lactic acidosis resolved Sepsis resolved [facility] Work Phone: Evaluation note* Diagnosis Encounter for screening mammogram for breast cancer documented in this encounter [facility] noteNo assessment information availableWThe [facility] Work Phone: Evaluation note* Diagnosis Multiple sclerosis, primary progressive (HCC)- Primary [facility] Phone[facility] Work Phone: [facility] Work Phone: Reason for referral (narrative)* Diagnostic Procedure Only (Routine) - Pending Review Specialty Diagnoses / Procedures Referred By Gaston t Referred To Contact [facility] Diagnoses Encounter for screening mammogram for breast cancer Procedures [facility]UBERT SCREENING SCREENING MAMMOGRAPHY BI 2-VIEW BREAST INC Joan Palomino MD [address] [place] [address] [facility] [place] [address] Referral ID Status Reason Start Date Expiration Date Visits Requested Visits Authorized [id number] Pending Review Auto-Generat ed Referral 12/01/2021 12/31/2022 1 1 [facility] for referral (narrative)No reason for referral information availableWThe Jewish Hospital Work Phone: Instructions * Patient Instructions [...] would require purchasing a compounded version from [employer]. One source to purchase this is [email or web address]://[employer]/[email or web address]-[email or web address]-count/ Physical Therapy: 1. Recommend return to PT [...] the medicines you take, including prescription and xrqw-lnr-lliyuio medicines, vitamins_._and herbal supplements. _ _ _ [...] may report side effects to FDA at 2-128-AGB-6029. General Information about the safe and effective [...] sodium acetate trihydrate, trehalose dihydrate. Manufactured by: [employer] A Member of the [employer], [address] [place] [address], [place] [address] [place]. License No.[id number] For more lnformation, go to www.[employer].Upptalk or_call 7-200-623-38BZ. This Medication Guide has been approved by [...] Anxiety Anxiety state, unspecified Diagnosis Multiple sclerosis ([facility]) - P rimary Multiple sclerosis Diagnosis Multiple [...] With And Without Contrast Willard Epperson MD [address] [place] [address] Status Reason Specialty Diagnoses / Procedures Referred By Contact Referred To Contact Authorized Specialty Services Required/Patien t's Best Interest Physical Therapy Diagnoses Multiple sclerosis ([facility]) Willard Epperson MD [address] [place] [address] Status Reason Specialty Diagnoses / Procedures Referre d By Contact Referred To Contact Closed Radiology Diagnoses Multiple sclerosis ([facility]) Procedures MR Brain Without Contrast Willard Epperson MD [address] [place] [address] Status Reason Specialty Diagnoses / Procedures Referred By Contact Referred To Contact Closed Specialty Services Required/Patien t's Best Interest Catcher Helper Diagnoses Multiple sclerosis (HCC) Willard Epperson MD [address] [place] [address] Dory Velez LISW-S Status Reason Specialty Diagnoses / Procedures Referred By Contact Referred To Contact New Request Radiology Diagnoses Multiple sclerosis, primary progressive (HCC) Procedures MR Thoracic Spine With And Without Contrast Willard Epperson MD [address] [place] [address] [address] [place] [address] Status Reason Specialty Diagnoses / Procedures Referred By Contact Referred To Contact New Request Radiology Diagnoses Multiple sclerosis, primary progressive (HCC) Procedures MR Cervical Spine With And Without Contrast Willard Epperson MD [address] [place] [address] [address] [place] [address] Status Reason Specialty Diagnoses / Procedures Referred By Contact Referred To Contact New Request Radiology Diagnoses Multiple sclerosis, primary progressive (HCC) Procedures MR Brain With And Without Contrast Willard Epperson MD [address] [place] [address] [place] [address] Status Reason Specialty Diagnoses / Procedures Referred By Contact Referred To Contact Authorized Specialty Services Required/Patie nt's Best Interest Home Health Services Diagnoses Multiple sclerosis, primary progressive (HCC) Willard Epperson MD [address] [place] [address] Rd [address] [place] [address] Specialty Diagnoses / Procedures Referred By Contac t Referred To Contact Catcher Helper Diagnoses Multiple sclerosis, primary progressive (HCC) Willard Epperson MD [address] [place] [address] [place] [address] Dory Velez LISW-S Referral ID Status Reason Start Date Expiration Date V isits Requested Visits Authorized [id number] Closed Specialty Services Required/[place] ent's Best Interest 04/09/2021 04/09/2022 1 1 Advance Directives No Advanced Directives Records FoundDocuments on File Type Date Recorded 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 Advance Directives and Livin g Will 04/12/2019 8:19 AM Documents on File Type Date Recorded 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 anation Advance Directives and Livin g Will 04/12/2019 8:19 AM Documents on File Type Date Recorded 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 anation Advance Directives and Livin g Will 10/18/2019 6:47 AM Documents on File Type Date Recorded 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 anation Advance Directives and Livin g Will 10/18/2019 6:47 AM Documents on File Type Date Recorded 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 anation Advance Directives and Livin g Will 04/17/2020 6:47 AM Documents on File Type Date Recorded 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 anation Advance Directives and Livin g Will 04/17/2020 6:47 AM Documents on File Type Date Recorded 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 anation Advance Directives and Livin g Will 10/16/2020 6:47 AM Documents on File Type Date Recorded 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 anation Advance Directives and Livin g Will 10/16/2020 6:47 AM Documents on File Type Date Recorded 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 anation Advance Directives and Livin g Will 04/09/2021 6:47 AM Documents on File Type Date Recorded 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 anation Advance Directives and Livin g Will 04/09/2021 6:47 AM Advance Directive Response Recorded Date/ Time Living Will Yes September 16, 2021 2:30pm Power of Senior Technologist Yes September 16 2:30pm Advance Directive Response Recorded Date/ Time Name of Medical Power of Senior Technologist jacque schwartz September 16, 2021 2:30pm Living Will Yes September 16, 2021 2:30pm Power of Senior Technologist Yes September 16 2:30pm Advance Directive Response Recorded Date/ Time Living Will Yes September 16, 2021 1:30pm Power of Senior Technologist Yes September 16 1:30pm Advance Directive Response Recorded Date/ Time Living Will Yes July 05 11:24am Power of Senior Technologist Yes July 05, 2022 11:24am Advance Directive Response Recorded Date/ Time Living Will Yes July 05 12:24pm Power of Senior Technologist Yes July 05, 2022 12:24pm History of Present Illness * Jeanne Hilario CMA - 02/13/2017 1:04 PM EDT [facility] ([phone][facility] a physical therapy order along with face [...] Epperson MD - 04/16/2019 8:02 PM EST [facility] 04/12/2019 IMPRESSIONS Britney [...] trials and in our experience here at [facility], most infusion related reactions are mild [...] visit. 3. Please sign up for the [employer] patient portal. [employer] provides assess to your medical record and test results, allows you to communicate with your care providers, and allows you to complete patient questionnaires prior to each clinic visit. 4. When your testing is completed, your MS care team will review all results and contact you if a finding requires follow up before your next visit. Otherwisee, we will discuss your test results zcfo-eo-dxop at your next clinic visit. Many of your testing results, however, can be reviewed online through [employer]. MS Disease Summary Primary Neurological Diagnosis and Date Given PPMS- 2017 Age of Symptom Onset Approximately 2009 Treatment History DMT Start Date End Date Reason for DC Ocrelizumab 04/13/2017 Other physicians: Dr. Hguhes (PCP) CHIEF COMPLAINT MS clinic follow up [...] hours as needed for pain. AFLURIA QUAD [id number], PF, syringe ADMINISTERED AT DDM 0 atenolol [...] Swelling Naproxen Sodium Hives, Itching and Swelling Stoarcqskctq-Fdw-Dcahvslo tachycardia tachycardia Penicillins Hives Sulfa (Sulfonamide Antibiotics) [...] file Gets together: Not on file Attends mandaeism service: Not on file Active member of [...] of links to MS educational sources online: [facility] (www.[facility].com/MS) Multiple Sclerosis Association of [place] (www.mymsaa.org) Multiple Sclerosis Foundation (www.msfocus.org) Can do Multiple Sclerosis ( www.mscando.org ) National Multiple Sclerosis Society (www.nationalmssociety.org) Twitter: @[facility] Facebook: [facility] Instagram: [facility] 5. For information on the [facility]'s clinical trial program contact Sari Bolden [facility]. 6. MS Groups take place at [facility] Education and Resource [place] at [facility]: [address] [place] [address]. Parking vouchers will be provided. Life with [...] the Monday of the month from 5:30-7pm. Caregiver/Motor And Chassis Inspector Support Group: offers opportunities to connect [...] experienced yoga practitioners. Pre- registration is required: [phone] 7. Education regarding disease modifying therapy discussed [...] Willard Epperson MD Neuroimmunology and Neuroinfectious Disease [facility] at [facility] ([facility]avio fax) Favio Address: [address] [place] [address], [address] [place], [place] [id number] [place] [address] [place] [address], [address] [place] [address] documented in this encounter* Jeanne Hilario CMA - 04/18/2019 8:25 AM EST Faxed [employer] ([phone]) a physical therapy referral along with face sheet and Insurance card to call patient to schedule. documented in this encounter* Willard Epperson MD - 10/18/2019 10:43 AM EDT Telephone Visit Via Phone Call [facility] [address] [facility], NEUROSCIENCE [address] [facility] [phone] Telephone Visit [facility] 10/18/2019 Willard Epperson MD Provider Location: [facility] Patient Location Greige Goods Inspector: None Patient Location: Patient's Home Patient: [...] there are inherent diagnostic limitations compared to vzkm-hv-yscw evaluations. We elected toproceed with the telephone visit telemedicine consultation. HPI Today she is currently at the [facility] receiving her infusion. She has been [...] hours as needed for pain. AFLURIA QUAD [id number], PF, SYRINGE ADMINISTERED AT [facility] ATENOLOL (TENORMIN) 25 MG TABLET Take 25 [...] Continue with vitamin D 5000 units daily ntai-pez-qdkxhkn Continue Ampyra 10 mg twice daily and [...] EDT Faxed new Physical Therapy order to [facility] ([phone]) to call and schedule in home visits [...] her biggest problem. Patient lives alone in [place], [place] and sister lives in [place]. Falls in past 6 months: > 6, [...] the need for help. Pt has a [employer] dical alert system. She is receiving 2 hours of aide support, 2 times per week. Her bathroom was remodeled with a walk-in shower and a chair lift was installed to get pt safely from her garage into the home. It appears that pt would benefit from meals on wheels, as her aide is only allowed to fern picker groceries, so pt does not have easy access to food/shopping. Jacque lives in [place]. In reviewing past and present in-home supports, [...] Name: Britney Peraza : 1960 [facility]: [id number] Other Physicians: Joan Hughes MD (Primary Care Physician) [facility] Follow-up Visit 04/17/2020 [...] me in 3 months. Willard Epperson MD [facility] NeuroImmunology/ Neuroinfectious Disease ([facility]avio [facility], and [place] [facility] outpatient clinics) General Neurology (Elise) (all locations) ([place]) [facility]io Address: [address] [place] [address], [address] [place] [address] [place] Address [address] [facility], [address] [place] [address] [facility] [address] [facility], [place] [address] DISEASE SUMMARY Primary Neurological Diagnosis and Date [...] at home. Confirms about 12 calls with [employer] over the last year. Would benefit significantly [...] Swelling Naproxen Sodium Hives, Itching and Swelling Lminoqhnmajg-Joc-Umomkdrk tachycardia tachycardia Penicillins Hives Sulfa (Sulfonamide Antibiotics) Hives Tetracycline Hives Current Outpatient Medications Medication Sig Dispense Refill acetaminophen (TYLENOL) 500 MG tablet Take 500 mg by mouth every 6 (six) hours as needed for pain. AFLURIA QUAD [id number], PF, syringe ADMINISTERED AT D[facility] 0 atenolol [...] EST Faxed a physical therapy order to [facility] ([phone]) along with face sheet and Insurance card to call and schedule with patient. documented in this encounter* Willard Epperson MD - 09/28/2018 3:49 PM EDT [facility] Follow Up Note 09/28/2018 IMPRESSIONS [...] trials and in our experience here at [facility], most infusion related reactions are mild [...] visit. 3. Please sign up for the [employer] patient portal. [employer] provides assess to your medical record and test results, allows you to communicate with your care providers, and allows you to complete patient questionnaires prior to each clinic visit. 4. When your testing is completed, your MS care team will review all results and contact you if a finding requires follow up before your next visit. Otherwisee, we will discuss your test results xixx-ol-lvpy at your next clinic visit. Many of your testing results, however, can be reviewed online through [employer]. DISEASE SUMMARY Primary Neurological Diagnosis and Date [...] is also noticeable by her sister and ibqgyxm-vr-qty with regards toambulation. There have been no [...] hours as needed for pain. AFLURIA QUAD [id number], PF, syringe ADMINISTERED AT D[facility] 0 atenolol [...] Swelling Naproxen Sodium Hives, Itching and Swelling Qzozrsyqisbb-Osj-Uaackxdy tachycardia tachycardia Penicillins Hives Sulfa (Sulfonamide Antibiotics) [...] Willard Epperson MD Neuroimmunology and Neuroinfectious Disease [facility] at [facility] [place] [facility] (Favio fax) F[facility] Address: [address] [place] [address], [address] [place] [address] [place] Address [address] [facility], [address] [place] [address] documented in this encounter Summary Purpose Family [...] WITH SEPSIS UTI WITH SEPSIS ADMISSION EXAM SNF LABWORK LABWORK Reason for Visit Debility Acute [...] WITH SEPSIS UTI WITH SEPSIS ADMISSION EXAM SNF LABWORK LABWORK LABWORK LAB WORK NEW SYMPTOMS/CONCERN [...] WITH SEPSIS UTI WITH SEPSIS ADMISSION EXAM SNF LABWORK LABWORK LABWORK LAB WORK NEW SYMPTOMS/CONCERN ALTERED MENTAL STATUS SNF LABWORK NEW SYMPTOMS/CONCERNS Reason for Visit Debility Acute respiratory failure with hypoxia Complicated urinary tract infection COVID-19 Lactic acidosis Sepsis Chief Complaint ADMISSION EXAM SNF LABWORK LABWORK LABWORK LAB WORK NEW SYMPTOMS/CONCERN ALTERED MENTAL STATUS SNF LABWORK NEW SYMPTOMS/CONCERNS SNF LABWORK SNF LAB WORK SNF LAB WORK Chief Complaint LABWORK LABWORK LAB WORK NEW SYMPTOMS/CONCERN ALTERED MENTAL STATUS SNF LABWORK NEW SYMPTOMS/CONCERNS SNF LABWORK SNF LAB WORK SNF LAB WORK SNF LABWORK Chief Complaint NEW SYMPTOMS/CONCERN ALTERED MENTAL STATUS SNF LABWORK NEW SYMPTOMS/CONCERNS SNF LABWORK SNF LAB WORK SNF LAB WORK SNF LABWORK LABWORK MONTHLY EXAM Chief Complaint NEW SYMPTOMS/CONCERN S SNF LABWORK SNF LAB WORK SNF LAB WORK SNF LABWORK LABWORK MONTHLY EXAM SNF LABWORK Chief Complaint SNF LABWORK SNF LAB WORK SNF LAB WORK SNF LABWORK LABWORK MONTHLY EXAM LABWORK SNF LABWORK Chief Complaint SNF LAB WOR K SNF LAB WORK SNF LABWORK LABWORK MONTHLY EXAM LABWORK SNF LABWORK SNF LABWORK ACUTE CARE NOTE Chief Complaint SNF LAB WOR K SNF LAB WORK SNF LABWORK LABWORK MONTHLY EXAM LABWORK SNF LABWORK SNF LABWORK SNF LABWORK ACUTE CARE NOTE ACUTE CARE Chief Complaint MONTHLY EXAM LABWORK SNF LABWORK SNF LABWORK SNF LABWORK ACUTE CARE NOTE ACUTE CARE SNF LABWORK SNF LAB WORK SNF LAB WORK SNF LAB WORK ACUTE CARE Chief Complaint LABWORK SNF LABWORK SNF LABWORK SNF LABWORK ACUTE CARE NOTE ACUTE CARE SNF LABWORK SNF LAB WORK SNF LAB WORK SNF LAB WORK SNF LAB WORK ACUTE CARE Chief Complaint LABWORK SNF LABWORK SNF LABWORK SNF LABWORK ACUTE CARE NOTE ACUTE CARE SNF LABWORK SNF LAB WORK SNF LAB WORK SNF LABWORK SNF LABWORK SNF LAB WORK SNF LAB WORK ACUTE CARE Chief Complaint SNF LABWORK SNF LABWORK ACUTE CARE NOTE ACUTE CARE SNF LABWORK SNF LAB WORK SNF LAB WORK SNF LABWORK SNF LABWORK SNF LAB WORK SNF LAB WORK ACUTE CARE SNF LABWORK MONTHLY NOTE SNF LABWORK ACUTE CARE Chief Complaint SNF LABWORK ACUTE CARE NOTE ACUTE CARE SNF LABWORK SNF LAB WORK SNF LAB WORK SNF LABWORK SNF LABWORK SNF LAB WORK SNF LAB WORK ACUTE CARE SNF LABWORK MONTHLY NOTE SNF LABWORK ACUTE CARE SNF LABWORK MONTHLY EXAM Chief Complaint SNF LAB WOR K SNF LABWORK SNF LABWORK SNF LAB WORK SNF LAB WORK ACUTE CARE SNF LABWORK MONTHLY NOTE SNF LABWORK ACUTE CARE SNF LABWORK MONTHLY EXAM SNF LAB WORK SNF LABWORK SNF LABWORK NEW CONCERN Chief Complaint SNF LAB WOR K SNF LABWORK SNF LABWORK SNF LAB WORK SNF LAB WORK ACUTE CARE SNF LABWORK MONTHLY NOTE SNF LABWORK ACUTE CARE SNF LABWORK MONTHLY EXAM SNF LAB WORK SNF LABWORK SNF LABWORK SNF LABWORK NEW CONCERN Chief Complaint SNF LABWORK SNF LABWORK SNF LAB WORK SNF LAB WORK ACUTE CARE SNF LABWORK MONTHLY NOTE SNF LABWORK ACUTE CARE SNF LABWORK MONTHLY EXAM SNF LAB WORK SNF LABWORK SNF LABWORK SNF LABWORK NEW CONCERN SNF LABWORK Chief Complaint SNF LABWORK MONTHLY NOTE SNF LABWORK ACUTE CARE SNF LABWORK MONTHLY EXAM SNF LAB WORK SNF LABWORK SNF LABWORK SNF LABWORK NEW CONCERN SNF LABWORK MONTHLY EXAM SNF LABWORK Chief Complaint MONTHLY NOTE SNF LABWORK ACUTE CARE SNF LABWORK MONTHLY EXAM SNF LAB WORK SNF LABWORK SNF LABWORK SNF LABWORK NEW CONCERN SNF LABWORK MONTHLY EXAM SNF LABWORK SNF LABWORK Chief Complaint SNF LABWORK SNF LABWORK MONTHLY NOTE SNF LABWORK MONTHLY EXAM SNF LABWORK SNF LAB WORK SNF LABWORK MOTNHLY NOTE SNF LABWORK Chief Complaint SNF LABWORK SNF LABWORK MONTHLY NOTE SNF LABWORK MONTHLY EXAM SNF LABWORK SNF LAB WORK SNF LABWORK MOTNHLY NOTE SNF LABWORK SNF LAB WORK Chief Complaint SNF LABWORK MONTHLY EXAM SNF LABWORK SNF LAB WORK SNF LABWORK MOTNHLY NOTE SNF LABWORK MONTHLY EXAM SNF LAB WORK SNF LABWORK LABWORK Chief Complaint MONTHLY EXAM SNF LABWORK SNF LAB WORK SNF LABWORK MOTNHLY NOTE SNF LABWORK MONTHLY EXAM SNF LAB WORK SNF LABWORK LABWORK SNF LAB WORK Chief Complaint SNF LABWORK LABWORK SNF LAB WORK SNF LABWORK SNF LABWORK MONTHLY EXAM MONTHLY NOTE MONTHLY EXAM SNF LAB WORK Chief Complaint MONTHLY NOTE MONTHLY EXAM MONTHLY 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 MONTHLY EXAM - MD SNF LAB WORK Chief Complaint MONTHLY 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 MONTHLY EXAM - MD SNF LAB WORK LABWORK Chief Complaint MONTHLY 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 MONTHLY EXAM - SNF LAB WORK MONTHLY NOTE -PA NEW CONCERN SNF LAB WORK LABWORK Chief Complaint MONTHLY 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 MONTHLY EXAM - MD SNF LAB WORK MONTHLY NOTE -PA NEW CONCERN SNF LAB WORK MONTHLY EXAM MD LABWORK SNF LAB WORK Chief Complaint SNF LAB WOR K MONTHLY NOTE -PA NEW CONCERN SNF LAB WORK MONTHLY EXAM MD LABWORK SNF LAB WORK SNF LAB WORK SNF LAB WORK Chief Complaint NEW CONCERN SNF LAB WORK MONTHLY EXAM MD LABWORK SNF LAB WORK SNF LAB WORK NEW CONCERN SNF LAB WORK MONTHLY EXAM Chief Complaint Admit Date MONTHLY NOTE June 07, 2024 4: 12pm SNF LAB WORK June 11, 2024 5:30am NEW CONCERN June 18, 2024 1 :49pm SNF LAB WORK July 09, 2024 5:00am MONTHLY EXAM July 09, 2024 5 :27pm SNF LAB WORK August 06, 2024 4: 00am SNF LAB WORK August 19, 2024 1 2:05pm Chief Complaint Admit Date MONTHLY NOTE June 07, 2024 4: 12pm SNF LAB WORK June 11, 2024 5:30am NEW CONCERN June 18, 2024 1 :49pm SNF LAB WORK July 09, 2024 5:00am MONTHLY EXAM July 09, 2024 5 :27pm NEW CONCERN August 05, 2024 4:07 pm SNF LAB WORK August 06, 2024 4: 00am SNF LAB WORK August 19, 2024 1 2:05pm NEW CONCERN August 19, 2024 4:4 9pm Chief Complaint Admit Date NEW CONCERN August 05, 2024 4:07 pm SNF LAB WORK August 06, 2024 4: 00am SNF LAB WORK August 19, 2024 1 2:05pm NEW CONCERN August 19, 2024 4:4 9pm SNF LAB WORK September 03, 2024 5: 00am MONTHLY EXAM September 03, 2024 4:52 pm LABWORK September 04, 2024 5:00 am SNF LAB WORK October 08, 2024 5:00 am Chief Complaint Admit Date NEW CONCERN August 05, 2024 4:07 pm SNF LAB WORK August 06, 2024 4: 00am SNF LAB WORK August 19, 2024 1 2:05pm NEW CONCERN August 19, 2024 4:4 9pm SNF LAB WORK September 03, 2024 5: 00am MONTHLY EXAM September 03, 2024 4:52 pm LABWORK September 04, 2024 5:00 am SNF LAB WORK October 08, 2024 5:00 am SNF LAB WORK October 11, 2024 12:3 0pm Chief Complaint Admit Date SNF LAB WORK September 03, 2024 5: 00am MONTHLY EXAM September 03, 2024 4:52 pm LABWORK September 04, 2024 5:00 am MONTHLY NOTE October 07, 2024 2:34pm SNF LAB WORK October 08, 2024 5:00 am SNF LAB WORK October 11, 2024 12:3 0pm SNF LAB WORK November 05, 2024 5:0 0am SNF LAB WORK November 07, 2024 5:0 0am SNF LAB WORK November 15, 2024 5: 30am LABWORK December 04, 2024 5:00a m LABWORK December 16, 2024 5:00 am Chief Complaint Admit Date SNF LAB WORK September 03, 2024 5: 00am MONTHLY EXAM September 03, 2024 4:52 pm LABWORK September 04, 2024 5:00 am MONTHLY NOTE October 07, 2024 2:34pm SNF LAB WORK October 08, 2024 5:00 am SNF LAB WORK October 11, 2024 12:3 0pm NEW CONCERN October 11, 2024 2:52pm SNF LAB WORK November 05, 2024 5:0 0am SNF LAB WORK November 07, 2024 5:0 0am SNF LAB WORK November 15, 2024 5: 30am LABWORK December 04, 2024 5:00a m LABWORK December 16, 2024 5:00 am Additional Source Comments Addendum Note - Willard Epperson MD - 01/23/2018 11:17 AM EDTQuick Note - Elif Augustin, TECHNOLOGIST - 10/18/2019 7:15 AM EDT Miscellaneous Notes (unrecog nized section and content) Addended by: WILLARD EPPERSON on: 01/23/2018 11:17 AM Modules accepted: Orders in this encounter This technologist ([id number]) and ([id number]) wore surgical masks/gloves during MRI exam. Patient wore surgical mask. documented in this encounter Reason for Visit (unrecogniz ed section and content) Reason Comments Multiple Sclerosis Ocrevus Specialty Diagnoses / Procedures Referred By Contac t Referred To Contact Infusion Therapy Diagnoses Multiple sclerosis, primary progressive (HCC) Procedures [place] INJECTION, OCRELIZUMAB, 1 MG Willard Epperson MD [address] [facility] [address] [place] [address] [facility] Ms Infusion [address] [place] [address] Referral ID Status Reason Start Date Expiration Date V isits Requested Visits Authorized [id number] Pending Review 03/31/2021 05/30/2021 1 1 Status Reason Specialty Diagnoses / Procedures Referre d By Contact Referred To Contact Closed Radiology Diagnoses Multiple sclerosis (HCC) Procedures MR Brain With And Without Contrast Willard Epperson MD [address] [facility] [address] [place] [address] Reason Comments Multiple Sclerosis 6 month Ocrevus Status Reason Specialty Diagnoses / Procedures Referred By Contact Referred To Contact Closed Infusion Therapy Diagnoses Multiple sclerosis Procedures [place] INJECTION, OCRELIZUMAB, 1 MG Willard Epperson MD [address] [facility] [address] [place] [address] [facility] Ms Infusion [address] [place] [address] Reason Comments Multiple Sclerosis Status Reason Specialty Diagnoses / Procedures Referred By Contact Referred To Contact Closed Infusion Therapy Diagnoses Multiple sclerosis, primary progressive (HCC) Procedures [place] INJECTION, OCRELIZUMAB, 1 MG Willard Epperson MD [address] [facility] [address] [place] [address] [facility] Ms Infusion [address] [place] [address] Status Reason Specialty Diagnoses / Procedures Referre d By Contact Referred To Contact Closed Radiology Diagnoses Multiple sclerosis (HCC) Procedures MR Brain Without Contrast Willard Epperson MD [address] [place] [address] Status Reason Specialty Diagnoses / Procedures Referred By Contact Referred To Contact Authorized Infusion Therapy Diagnoses Multiple sclerosis Ocrevus 6 months Procedures [place] INJECTION, OCRELIZUMAB, 1 MG CHEMO Willard Epperson MD [address] [facility] [address] [place] [address] [facility] Ms Infusion [address] [place] [address] Status Reason Specialty Diagnoses / Procedures Referred By Contact Referred To Contact Canceled Specialty Services Required/Patie nt's [facility] / Home Health Services Diagnoses Multiple sclerosis, primary progressive (HCC) Willard Epperson MD [address] [place] [address] [place] [address] Status Reason Specialty Diagnoses / Procedures Referred By Contact Referred To Contact Authorized Infusion Therapy Diagnoses Multiple sclerosis, primary progressive (HCC) Procedures [place] INJECTION, OCRELIZUMAB, 1 MG Willard Epperson MD [address] [place] [address] [facility] Ms Infusion [address] [place] [address] Reason Comments Multiple Sclerosis Ocrevus 6mo, 2hr Status Reason Specialty Diagnoses / Procedures Referred By Contact Referred To Contact Closed Infusion Therapy Diagnoses Multiple sclerosis Ocrevus 6 months Procedures [place] INJECTION, OCRELIZUMAB, 1 MG CHEMO Willard Epperson MD [address] [facility] [address] [place] [address] [facility] Ms Infusion [address] [place] [address] Reason Onset Date Comments Medication Refill 01/08/2021 Reason Comments Multiple Sclerosis Care Teams (unrecognized sec tion and content) [employer] Specialist Relationship Specialty Start Date End Date Joan Hughes MD [address] [facility] [address] [place] [id number] PCP - General Family Medicine 09/28/18 [employer] Specialist Relationship Specialty Start Date End Date Joan Hughes MD [address] [facility] [address] [place] [address] [id number] PCP - General Family Medicine 09/28/18 [employer] Specialist Relationship Specialty Start Date End Date Joan Hughes MD [address] [facility] [address] [place] [address] [id number] PCP - General Family Medicine 09/28/18 [employer] Specialist Relationship Specialty Start Date End Date Joan Hughes MD [address] [facility] [address] [place] [address] [id number] PCP - General Family Medicine 09/28/18 [employer] Specialist Relationship Specialty Start Date End Date Joan Hughes MD [address] [place] [address] PCP - General Family Practice 05/11/16 Team Status: Active Member Role Status Dates Dr. Joan Hughes MD Family Provider Active Dr. Joan Hughes MD Primary Care Provider Active Team Status: Inactive Member Role Status Dates Dr. Joan Hughes MD Primary Care Provider Active Britney Worthington 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, 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-C Attending Provider Active Team Status: Inactive Member [...] Active Asad Jamison MD Attending Provider Active [employer] Specialist Relationship Specialty Start Date End Date Joan Hughes MD [address] [place] [address] PCP - General Family Medicine 09/28/18 Team [...] Status: Inactive Member Role Status Dates Dr. Jaon Hughes MD Primary Care Provider Active Breanne CULVER MD Attending Provider, Referring Provider Active Team Status: Inactive Member Role Status Dates Dr. Joan Hughes MD Primary Care Provider Active Britney CULVER NP-C Attending Provider Active Team Status: Inactive Member Role Status Dates Dr. Joan Hughes MD Primary Care Provider Active OLGA Pena Attending Provider Active Team Status: Inactive Member Role Status Dates Dr. Joan Hughes MD Primary Care Provider Active WILLIAM ByrdC Attending Provider Active Team Status: Inactive Member Role Status Dates Dr. Joan Hughes MD Primary Care Provider Active Start: June 07, 2024 End: June 07, 2024 Britney Worthington NP 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-C Attending Provider Active Start: June 07, 2024 [...] 2024 End: June 18, 2024 Britney Worthington 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, 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-C Attending Provider Active Start: June 18, 2024 [...] End: August 05, 2024 Britney Worthington NP 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-C Attending Provider Active Start: August 05, 2024 [...] End: August 19, 2024 Britney Worthington NP 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-C Attending Provider Active Start: August 19, 2024 [...] Active Start: October 11, 2024 Britney CULVER NP-Aysha Attending Provider Active Start: October 11, 2024 [...] Attending Provider Active Start: November 15, 2024 Team Status: Active Member Role/Relationship Status Dates Dr. Joan Hughes MD Family Provider Active Dr. Joan Hughes MD Primary Care Provider Active Team Status: Inactive Member Role/Relationship Status Dates Dr. Joan Hughes MD Primary Care Provider Active Start: September 03, 2024 End: September 03, 2024 Breanne CULVER MD Attending Provider Active Start: September 03, 2024 End: September 03, 2024 Team Status: Inactive Member Role/Relationship Status Dates Dr. Joan Hughes MD Primary Care Provider Active Start: September 03, 2024 End: September 03, 2024 Dr. Breanne Ruiz MD Attending Provider Active Start: September 03, 2024 End: September 03, 2024 Team Status: Inactive Member Role/Relationship Status Dates Dr. Joan Hughes MD Primary Care Provider Active Start: September 04, 2024 End: September 04, 2024 Breanne CULVER MD Attending Provider Active Start: September 04, 2024 End: September 04, 2024 Team Status: Inactive Member Role/Relationship Status Dates Dr. Joan Hughes MD Primary Care Provider Active Start: October 07, 2024 End: October 07, 2024 WILLIAM Moore NPC Attending Provider Active Start: October 07, 2024 End: October 07, 2024 Team Status: Inactive Member Role/Relationship Status Dates Dr. Joan Hughes MD Primary Care Provider Active Start: October 08, 2024 End: October 08, 2024 Breanne CULVER MD Attending Provider Active Start: October 08, 2024 End: October 08, 2024 Team Status: Inactive Member Role/Relationship Status Dates Dr. Joan Hughes MD Primary Care Provider Active Start: October 11, 2024 End: October 11, 2024 FRANCIS Ellison Attending Provider Active Start: October 11, 2024 End: October 11, 2024 Team Status: Active Member Role/Relationship Status Dates Dr. Joan Hughes MD Primary Care Provider Active Start: November 05, 2024 FRANCIS Ellison Attending Provider Active Start: November 05, 2024 Team Status: Active Member Role/Relationship Status Dates Dr. Joan Hughes MD Primary Care Provider Active Start: November 07, 2024 Breanne CULVER MD Attending Provider Active Start: November 07, 2024 Team Status: Active Member Role/Relationship Status Dates Dr. Joan Hughes MD Primary Care Provider Active Start: November 15, 2024 Breanne CULVER MD Attending Provider Active Start: November 15, 2024 Team Status: Active Member Role/Relationship Status Dates Dr. Joan Hughes MD Primary Care Provider Active Start: December 04, 2024 Breanne CULVER MD Attending Provider Active Start: December 04, 2024 Team Status: Active Member Role/Relationship Status Dates Dr. Joan Hughes MD Primary Care Provider Active Start: December 13, 2024 Breanne CULVER MD Attending Provider Active Start: December 13, 2024 Breanne CULVER MD Referring Provider Active Start: December 13, 2024 Team Status: Active Member Role/Relationship Status Dates Dr. Joan Hughes MD Primary Care Provider Active Start: December 16, 2024 Breanne CULVER MD Attending Provider Active Start: December 16, 2024 Team Status: Inactive Member Role/Relationship Status Dates Dr. Joan Hughes MD Primary Care Provider Active Start: October 11, 2024 End: October 11, 2024 WILLIAM Moore NPC Attending Provider Active Start: October 11, 2024 End: October 11, 2024 Team Status: Active Member Role/Relationship Status Dates Dr. Joan Hughes MD Primary Care Provider Active Start: November 05, 2024 FRANCIS Ellison Attending Provider Active Start: November 05, 2024 Team Status: Active Member Role/Relationship Status Dates Dr. Joan Hughes MD Primary Care Provider Active Start: November 07, 2024 Breanne CULVER MD Attending Provider Active Start: November 07, 2024 Team Status: Active Member Role/Relationship Status Dates Dr. Joan Hughes MD Primary Care Provider Active Start: November 15, 2024 Breanne CULVER MD Attending Provider Active Start: November 15, 2024 Team Status: Active Member Role/Relationship Status Dates Dr. Joan Hughes MD Primary Care Provider Active Start: December 04, 2024 Breanne CULVER MD Attending Provider Active Start: December 04, 2024 Team Status: Active Member Role/Relationship Status Dates Dr. Joan Hughes MD Primary Care Provider Active Start: December 13, 2024 Breanne CULVER MD Attending Provider Active Start: December 13, 2024 Breanne CULVER MD Referring Provider Active Start: December 13, 2024 Team Status: Active Member Role/Relationship Status Dates Dr. Joan Hughes MD Primary Care Provider Active Start: December 16, 2024 Breanne CULVER MD Attending Provider Active Start: December 16, 2024 INFORMATION SOURCE (unrecogn ized section and content) DATE CREATED AUTHOR 04/13/2021 [facility] DATE CREATED AUTHOR AUTHOR'S ORGANIZ ATION 01/15/2022 [facility] DATE CREATED AUTHOR AUTHOR'S ORGANIZ ATION 11/16/2022 [facility] DATE CREATED AUTHOR AUTHOR'S ORGANIZ ATION 01/03/2025 [facility] Goals (unrecognized section and content) Goals may [...] or prosecute any alcohol or drug abuse patient.[facility] FOR RECORDS PERTAINING TO PATIENTS WHO ARE [...] BE BASED ON THE PRIMARY CLINICAL RECORDS. [employer] provides no warranty or guarantee of the accuracy or completeness of information in this document.
[2025-01-03 22:12] LABS: Hematocrit 42.9 % (37-47); Hemoglobin 12.9 g/dL (12.0-15.0); Immature Granulocytes Count 0.330 X10^3/uL (0.0-0.0); Mean Corp Hgb Conc 30.1 g/dL (32-36); Mean Corpuscular Volume 79.6 fL (81-99); Mean Platelet Vol. 8.1 fl (6.2-12.0); NRBC Flagged by Analyzer 0 % (0-5); POSITIVE DIFFERENTIAL YES; Platelet Count 564 K/mm3 (150-450); RBC Distribution Width CV 17.7 % (11.6-14.6); RBC Distribution Width SD 49.3 fl (35.1-43.9); Red Blood Count 5.39 M/mm3 (4.2-5.4); White Blood Count 17.3 K/mm3 (4.4-11.0)
--- NOTE | 2025-01-03 22:12 | EX.ED.DYSGE1 ---
HPI History of Present Illness Chief Complaint: Unresponsive Informant: EMS Narrative Narrative: Brought by EMS from [facility] for altered mental status. Reported declining over the last week. She has history of MS. Chronic respiratory failure however no reported chronic oxygenation. She was 86% on room air with EMS arrival. She was unresponsive. Also reported there was possible hospice to see her today however family wanted to wait. Therefore not currently hospice. They are DNR [facility] papers. No additional information this time on presentation tachycardic blood pressure 89/48 on nonrebreather. Temp 97. PFSH PFS Medical History (Updated 01/04/25 @ 02:[address] Willian Fuller, DO) Hyperlipemia, fat-induced Hyperlipemia Essential (primary) hypertension Type 2 diabetes mellitus Multiple sclerosis Hypertension Depression Vertigo Home Medications ?Medication ?Instructions ?Recorded ?Last Taken ?Type acetaminophen 500 mg tablet 1,000 mg PO Q4H PRN PRN Pain 07/03/18 09/16/21 History atenolol 25 mg tablet 25 mg PO DAILY heart 07/03/18 09/16/21 History Lactobacillus rhamnosus GG 10 1 cap PO DAILY 01/03/25 Unknown History billion cell capsule atorvastatin 10 mg tablet (Lipitor) 10 mg PO QHS 01/03/25 Unknown History ciprofloxacin HCl 250 mg tablet 250 mg PO BID 01/03/25 Unknown History (Cipro) dulaglutide 1.5 mg/0.5 mL 1.5 mg subcut QWEEK 01/03/25 Unknown History subcutaneous pen injector (Trulicity) escitalopram oxalate 10 mg tablet 10 mg PO DAILY 01/03/25 Unknown History (Lexapro) fenofibrate 54 mg tablet 54 mg PO DAILY 01/03/25 Unknown History lidocaine 4 % topical patch 1 patch topical DAILY 01/03/25 Unknown History (Aspercreme (lidocaine)) loratadine 10 mg tablet 10 mg PO DAILY 01/03/25 Unknown History (Allerclear) nitroglycerin 0.4 mg sublingual 0.4 mg sublingual Q5M 01/03/25 Unknown History tablet oxycodone 5 mg tablet 2.5 mg PO Q4H pain 01/03/25 Unknown History sennosides 8.6 mg-docusate sodium 1 tab-cap PO DAILY 01/03/25 Unknown History 50 mg tablet (Senna Plus) Allergy/AdvReac Type Severity Reaction Status Date / Time naproxen Allergy Rash Verified 01/03/25 21:56 Penicillins Allergy Rash Verified 01/03/25 21:56 Sulfa (Sulfonamide Allergy Rash Verified 01/03/25 21:56 Antibiotics) tizanidine AdvReac Unknown Verified 01/03/25 21:56 Family History Other Hypertension Surgical History Hx of appendectomy Social History Smoking Status: Never smoker ROS ROS ED Review of Systems ROS Unobtainable: due to mental status EXAM Physical Exam Const Vital Signs: 01/03/25 21:55 01/03/25 22:00 01/03/25 22:03 Temperature 97 F L Temperature Source Temporal Pulse Rate 147 H Respiratory Rate 30 H Respiratory Pattern Tachypnea Blood Pressure 89/48 L Blood Pressure Mean 61 Pulse Ox 89 98 Oxygen Delivery Method Non-Rebreather Non-Rebreather Oxygen Flow Rate (L/min) 15 15 01/03/25 22:27 01/03/25 22:30 01/03/25 23:00 Temperature 101.6 F H 101.1 F H Temperature Source Core Core Pulse Rate 137 H 135 H Respiratory Rate 20 H 22 H Respiratory Pattern Blood Pressure 94/48 L 98/46 L Blood Pressure Mean 63 63 Pulse Ox 100 12 100 Oxygen Delivery Method Non-Rebreather High Flow High Flow Oxygen Flow Rate (L/min) 15 12 12 01/03/25 23:30 01/03/25 23:30 01/03/25 23:30 Temperature 100.8 F H 100.9 F H Temperature Source Core Core Pulse Rate 124 H 124 H Respiratory Rate 22 H 22 H Respiratory Pattern Blood Pressure 97/51 L 97/51 L Blood Pressure Mean 66 66 Pulse Ox 100 100 98 Oxygen Delivery Method Nasal Cannula Nasal Cannula Nasal Cannula Oxygen Flow Rate (L/min) 4 4 4 01/03/25 23:45 01/03/25 23:45 01/03/25 23:54 Temperature 100.9 F H Temperature Source Core Pulse Rate 123 H Respiratory Rate 22 H Respiratory Pattern Blood Pressure 85/46 L Blood Pressure Mean 59 Pulse Ox 98 98 93 Oxygen Delivery Method Nasal Cannula Nasal Cannula Room Air Oxygen Flow Rate (L/min) 2 2 01/04/25 00:00 01/04/25 00:00 01/04/25 00:15 Temperature 101.0 F H 101.0 F H 101.1 F H Temperature Source Core Core Core Pulse Rate 124 H 123 H 122 H Respiratory Rate 22 H 22 H 22 H Respiratory Pattern Blood Pressure 83/49 L 83/49 L 86/46 L Blood Pressure Mean 60 60 59 Pulse Ox 93 93 94 Oxygen Delivery Method Room Air Room Air Room Air Oxygen Flow Rate (L/min) 01/04/25 00:30 01/04/25 01:00 01/04/25 01:30 Temperature Temperature Source Pulse Rate 123 H 120 H 119 H Respiratory Rate 22 H 22 H 20 H Respiratory Pattern Blood Pressure 84/46 L 79/38 L 89/49 L Blood Pressure Mean 58 51 62 Pulse Ox 95 96 96 Oxygen Delivery Method Room Air Room Air Room Air Oxygen Flow Rate (L/min) 01/04/25 02:00 01/04/25 02:18 01/04/25 02:30 Temperature 102.3 F H Temperature Source Pulse Rate 118 H 116 H 118 H Respiratory Rate 22 H 22 H 22 H Respiratory Pattern Blood Pressure 85/46 L 77/42 L 94/43 L Blood Pressure Mean 59 53 60 Pulse Ox 98 96 98 Oxygen Delivery Method Room Air Room Air Oxygen Flow Rate (L/min) Constitutional Narrative: Currently on nonrebreather no respiratory distress however not answering questions. HEENT normocephalic and atraumatic Resp Resp Narrative: Diminished breath sounds bilaterally. Cardio regular rhythm Rate: tachycardic GI soft to palpation Extremity normal to inspection Extremity Narrative: Pulses intact x 4. Neuro Neuro Narrative: Not responding at this time. Skin no rashes or lesions noted and no wounds Sepsis Attestation Sepsis Alert: Yes Sepsis Attestation: Agree w/Sepsis Date exam was performed: 01/03/25 Time exam was performed: 22:30 Possible Source of Sepsis: Pulmonary and Genitourinary Sepsis Organ Dysfunction Criteria Present: SBP < 90 mmHg or MAP < 65 mmHg, Lactic Acid > 2 mmol/L and New/Unexplained change in mental status Fluid Resuscitation Fluid resuscitation indicated?: Yes Fluid Resuscitation ordered: 30 ml/kg fluid bolus ordered Amount of fluid ordered: 20,000 Sepsis Note Date exam was performed: 01/04/25 Time exam was performed: 02:07 Sepsis Attestation: Sepsis re-evaluation was performed Response to fluids: Non Fluid responsive hypotension and Vasopressors started MDM MDM MDM Narrative Medical decision making narrative: Interventions / MDM: Differential diagnosis: Septic shock, pneumonia, UTI, DNR-CCA, history of MS Diagnosis considered but do not suspect: N/A My EKG interpretation: Narrow complex tachycardia [address] changes T wave version aVL nonspecific. Imaging independently reviewed and interpreted by myself: CT brain: No acute process. 1 view chest x-ray retrocardiac atelectasis versus infiltrate also read by radiology. Postcentral line placement 1 view chest x-ray: No pneumothorax, Line in appropriate position. External documents reviewed: N/A Test considered but not ordered:N/A ED course: Patient tachycardic blood pressure 89/40 on a nonrebreather. Sepsis orders initiated. ABG. EKG tachycardia narrow complex at 142. 61 kg, 2 L fluid ordered to cover 30 cc/kg bolus. CT brain. Chest x-ray. 2305: Cath urine returned positive for infection and chest x-ray concerning for retrocardiac atelectasis versus infiltrate. She is requiring oxygen. White count 17. She is covered with Rocephin and Zithromax. Currently on nasal cannula high flow. No respiratory distress. Core temperature on Mac's 1-1.6. Rectal Tylenol given. ABG pH 7.39 CO2 26 PaO2 134 this was on condition this was on nonrebreather oxygen. After 2 L of fluid patient still hypotensive in the 80s. Given multiple times tried get our sister unable to. Patient more awake however knows her name he thinks she is back at her facility cannot tell me the year. She is DNR CCA. When asked about CPR and intubation she says no. When asked about central line blood pressure she says yes. She was denying cough symptoms however pneumonia on findings hypotension with a UTI. She is on dual antibiotics. She states she does not ambulate. 1340: With her hypotension, preparations are made for central line placement. Preprocedure ultrasound noted right IJ. Normal sterile conditions full drapes. Timeout performed. Prep of the skin, ultrasound guidance Seldinger technique used after local analgesia with lidocaine. Vein was collapsed during attempts, however was able to get dark blood on entrance, confirmed with draw back. Guidewire was placed, skin incision, dilation of the skin. Triple-lumen cath placed 15 cm at the neck line. All flush. Secured with dressing. Collapsible vein during procedure additional liter of fluids were ordered. Post central line x-ray ordered. Levophed will be ordered goal MAP of 65. 0205: I spoke with hospitalist Dr. Elliott for admission to ICU. Post chest x-ray film per myself no pneumothorax central line in Appropriate position. Re-evaluation: stable Disposition discussed with patient/family/significant other: Case discussed with consulting clinician: N/A This note was generated with [employer] dictation software. It may contain incorrect words, spelling, and punctuation that were not noted in checking the note before signing. Lab Data Attestation: I reviewed the patient's lab results. Labs: Laboratory Results - last 24 hr 01/03/25 01/03/25 01/03/25 22:00 22:08 22:21 WBC 17.3 H RBC 5.39 Hgb 12.9 Hct 42.9 MCV 79.6 L MCH 23.9 L MCHC 30.1 L RDW Std Deviation 49.3 H RDW Coeff of Hung 17.7 H Plt Count 564 H MPV 8.1 Immature Gran % (Auto) 1.900 H Neut % (Auto) 92.8 H Lymph % (Auto) 1.5 L Dewitt % (Auto) 3.1 Eos % (Auto) 0.1 Baso % (Auto) 0.6 Absolute Neuts (auto) 16.0 H Absolute Lymphs (auto) 0.26 L Nucleated RBC % 0 PT 15.8 H INR 1.2 APTT 29.3 Sodium 136 Potassium 5.5 H Chloride 99 Carbon Dioxide 14.4 L Anion Gap 22 H BUN 39 H Creatinine 0.89 Estim Creat Clear Calc 53.69 Est GFR (MDRD) Non-Af 72 BUN/Creatinine Ratio 44.1 H Glucose 153 H Lactic Acid 1.7 Calcium 10.6 Total Bilirubin 0.18 AST 22 ALT 23 Alkaline Phosphatase 100 Total Protein 7.7 Albumin 3.2 L Globulin 4.5 H Albumin/Globulin Ratio 0.7 L Urine Color Yellow Urine Clarity Turbid Urine pH 6.0 Ur Specific [place] 1.015 Urine Protein 100 H Urine Glucose (UA) Normal Urine Ketones 5 H Urine Occult Blood 250 H Urine Nitrite Negative Urine Bilirubin Negative Urine Urobilinogen Normal Ur Leukocyte Esterase 500 H Urine RBC 0 SEEN Urine WBC >100 SEEN Ur Squamous Epith Cells 0 SEEN Urine Bacteria 0 SEEN Urine Mucus 0 SEEN POC Glucose 146 H ABG Data ABG results: ABG 01/03/25 22:21 Specimen Type ART Sample Site L Radial pH 7.39 Bicarbonate Actual 15.8 L Total CO2 17 Base Excess -9 L O2 Saturation 99 O2 % 15.0 ABG pCO2 26.1 L ABG pO2 135 H Bebeto Test Positive O2 Delivery Device NRB Vent Mode Not entered Radiography Diagnostic Testing: Clinical Impression(s) from Imaging Studies Brain CT 01/03/25 22:03 IMPRESSION: No evidence of acute intracranial pathology. Moderate generalized parenchymal volume loss, and patchy hypoattenuation in the supratentorial white matter similar to prior exam; likely a combination of chronic microangiopathic changes and demyelinating disease, with reported history of multiple sclerosis. Reading Location: [facility] Chest X-Ray 01/03/25 22:35 IMPRESSION: Left basilar/retrocardiac consolidation and/or atelectasis. Reading Location: [facility] Chest X-Ray 01/04/25 02:05 IMPRESSION: Successful CVC placement. Reading Location: [place] [id number] Critical Care Time Critical Care Time: Yes Critical care time (excluding procedures): 30-74 minutes, Discussing w/Patient &/or Family/[employer]le [employer], Discussing w/Consultants, Arranging Admission or Transfer, Performing Direct Patient Care at Bedside and - (40 minutes) Discharge Plan Dx/Rx/DC Orders Clinical Impression: Sepsis with encephalopathy and septic shock, Dehydration, Left lower lobe pulmonary infiltrate, Multiple sclerosis, Acute UTI Disposition Disposition: [facility] Discharge Date/Time: 01/04/25 03:26
[2025-01-03 22:24] LABS: Allen Test Positive; Base Excess -9 mmol/L (-2 to +2); FI02 15.0; PO2 135 mmHG (75-100); SITE L Radial; SO2 99 % (95-99)
[2025-01-03 22:28] LABS: Prothrombin Time (Protime)PT. 15.8 SECONDS (11.7-14.9)
[2025-01-03 22:29] LABS: Partial Thromboplast Time 29.3 Seconds (24.1-36.2)
[2025-01-03 22:30] LABS: Mucous, Urine 0 SEEN /hpf (<or=2+); Red Blood Cells-Urine 0 SEEN /hpf (0-5); Squamous Epithelial Cells - UA 0 SEEN /hpf (5-10)
--- NOTE | 2025-01-03 22:30 | ED.RN ---
THIS RN UNABLE TO SCAN NORMAL SALINE IN AT THIS TIME, SECOND LITER OF FLUIDS IS INITIATED AT 2230. HOWEVER, THE PATIENT HAS 2000ML NORMAL SALINE ORDERED AND TWO IV LINES ESTABLISHED. THE FIRST LITER IS INFUSING THROUGH RAC AND THE SECOND LITER IS INFUSING THROUGH LAC. [employer] WILL NOT ALLOW ME TO SCAN BOTH LITERS IN CONCURRENTLY. FLUID RESUSCITATION TIMES ARE CHARTED APPROPRIATELY. MD AWARE OF BOTH LITERS INFUSING AT THIS TIME.
--- NOTE | 2025-01-03 22:35 | RAD_ITS ---
PROCEDURE: CHEST 1 VIEW (PORTABLE) 01/03/2025 REASON FOR EXAM: HYPOXIA TECHNIQUE: Frontal view of the chest. COMPARISON: 09/17/2021 FINDINGS: Lungs/Pleura: Left basilar/retrocardiac consolidation and/or atelectasis. Right lung is clear. No definite pleural effusion, given volume loss on the left. No pneumothorax. Heart/Mediastinum: Normal in size. Mild left mediastinal shift. Bones/Soft tissues: No significant abnormality. RAD/Chest 1 View (Portable) IMPRESSION: Left basilar/retrocardiac consolidation and/or atelectasis. Reading Location: [id number]
[2025-01-03 22:42] LABS: Color, Urine Yellow (Yellow); Glucose, Dipstick Normal (Normal); Ketone-Dipstick 5 mg/dl (Negative); Leukocyte Esterase-Dipstick 500 /ul (Negative); Nitrite-Dipstick Negative (Negative); Occult Blood-Urine 250 /ul (Negative); Protein-Dipstick 100 mg/dl (Negative); Specific Gravity, Urine 1.015 (1.002-1.030); Urine Bilirubin Dipstick Negative (Negative)
[2025-01-03 23:17] LABS: AST(SGOT) 22 U/L (<=31); Alanine Aminotransfer ALT/SGPT 23 U/L (<=34); Albumin, Serum 3.2 g/dL (3.4-4.8); Alkaline Phosphatase 100 U/L (35-104); Anion Gap 22 (5-15); BUN 39 mg/dL (4-19); BUN/Creat Ratio 44.1 RATIO (10-20); Calcium,Total 10.6 mg/dL (7.6-11.0); Carbon Dioxide 14.4 mmol/L (21.0-32.0); Chloride 99 mmol/L (98-108); Estimated Creatinine Clearance 53.69 ml/min (50-250); Globulin 4.5 g/dL (2.2-4.2); Glucose 153 mg/dL (70-99); Potassium 5.5 mmol/L (3.3-5.1)
[2025-01-03] MEDS: Ceftriaxone 2 GM in 0.9% Normal Saline (50mL MB+) 50 ML IV (23:54)
[2025-01-04] VITALS (38 sets, daily range): BP systolic 77–125; BP diastolic 38–74; PULSE 93–124; RESP 19–26; TEMP 37.1–39.4; O2SAT 93–98; BMI 24.1
--- NOTE | 2025-01-04 00:05 | ED.RN ---
THIS RN ATTEMPTED TO CALL THE PATIENT'S FAMILY MEMBER. THIS RN WAS SENT STRAIGHT TO [employer] AND THE [employer] BOX WAS FULL. THIS RN ATTEMPTED TO CALL A HOME PHONE LISTED ON THE PATIENT'S CHART AND WAS UNABLE TO REACH ANYONE. NOTIFIED.
[2025-01-04] MEDS: Azithromycin 500 MG in 0.9% Normal Saline (250mL Bag) 250 ML 255 MG IV ×2 (00:15→21:35)
--- NOTE | 2025-01-04 00:50 | ED.RN ---
Attempted to call pts sister numerous times without an answer. Attempted to call [employer] with no answers also.
--- NOTE | 2025-01-04 02:03 | PCM.HP.STD ---
HPI - General General Date of Admission: 01/04/25 Date of Service: 01/04/25 Chief Complaint: Unresponsive. HPI Narrative BRITNEY PERAZA, is a 64 F with a past medical history of essential hypertension; on atenolol, hyperlipidemia; on atorvastatin and fenofibrate, DM-2; unknown control on dulaglutide, history of multiple sclerosis; with patient residing at [facility], alleged history of chronic hypoxic respiratory failure, depression; on escitalopram, history of appendectomy, history of vertigo and OA; with chronic pain on prn oxycodone q. 4 hours prn who presents to [facility] ER after staff at her F noted unresponsiveness. Ms. Peraza is not a fully reliable historian at this time so information was gathered from chart, medical staff and computers. EMS was activated shortly after she was found to be unresponsive with oxygen saturation of 86% on RA. According to the records there was possible hospice consultation earlier today but her sister, who is her POA, apparently wanted to wait, therefore patient is not currently on hospice. The patient's wishes are to be a DNR-CCA; without intubation but with central lines according to the ER physician. In the ER she was noted to have a Fever of 101.6 ?F present on admission with Hypotension of 79/38 mmHg noted shortly after admission requiring emergent central line placement in ER with corresponding Leukocytosis of 17.3 K and Left-shift of 1.9% and UA positive for Acute Cystitis; without hematuria consistent with suspected Sepsis with Septic Shock complicated by clinical evidence of Septic Encephalopathy and laboratory evidence of Hyperkalemia of 5.5 mmol/L present on admission and Dehydration; evidenced by BUN/creatinine ratio of 44.1 present on admission with a head CT without contrast that revealed no evidence of acute intracranial pathology but did reveal moderate generalized parenchymal volume loss and patchy hypoattenuation of the supratentorial white matter similar to prior exam likely a combination of chronic microangiopathic changes and demyelinating disease with reported history of multiple sclerosis along with CXR that revealed Left basilar/retrocardiac consolidation and/or atelectasis. She was admitted to the ICU for treatment under the sepsis protocol for stay that is expected to extend beyond 2 midnights. [facility] Medical History (Updated 01/04/25 @ 02:[address] Willian Fuller DO) Hyperlipemia, fat-induced Hyperlipemia Essential (primary) hypertension Type 2 diabetes mellitus Multiple sclerosis Hypertension Depression Vertigo Home Medications ?Medication ?Instructions ?Recorded ?Last Taken ?Type acetaminophen 500 mg tablet 1,000 mg PO Q4H PRN PRN Pain 07/03/18 09/16/21 History atenolol 25 mg tablet 25 mg PO DAILY heart 07/03/18 09/16/21 History Lactobacillus rhamnosus GG 10 1 cap PO DAILY 01/03/25 Unknown History billion cell capsule atorvastatin 10 mg tablet (Lipitor) 10 mg PO QHS 01/03/25 Unknown History ciprofloxacin HCl 250 mg tablet 250 mg PO BID 01/03/25 Unknown History (Cipro) dulaglutide 1.5 mg/0.5 mL 1.5 mg subcut QWEEK 01/03/25 Unknown History subcutaneous pen injector (Trulicity) escitalopram oxalate 10 mg tablet 10 mg PO DAILY 01/03/25 Unknown History (Lexapro) fenofibrate 54 mg tablet 54 mg PO DAILY 01/03/25 Unknown History lidocaine 4 % topical patch 1 patch topical DAILY 01/03/25 Unknown History (Aspercreme (lidocaine)) loratadine 10 mg tablet 10 mg PO DAILY 01/03/25 Unknown History (Allerclear) nitroglycerin 0.4 mg sublingual 0.4 mg sublingual Q5M 01/03/25 Unknown History tablet oxycodone 5 mg tablet 2.5 mg PO Q4H pain 01/03/25 Unknown History sennosides 8.6 mg-docusate sodium 1 tab-cap PO DAILY 01/03/25 Unknown History 50 mg tablet (Senna Plus) Allergy/AdvReac Type Severity Reaction Status Date / Time naproxen Allergy Rash Verified 01/03/25 21:56 Penicillins Allergy Rash Verified 01/03/25 21:56 Sulfa (Sulfonamide Allergy Rash Verified 01/03/25 21:56 Antibiotics) tizanidine AdvReac Unknown Verified 01/03/25 21:56 Family History Other Hypertension Surgical History Hx of appendectomy Social History Smoking Status: Never smoker ROS ROS Narrative Full review systems was not possible due to patient's septic encephalopathy. Vital Signs Vital Signs Vital Signs: 01/03/25 21:55 01/03/25 22:00 01/03/25 22:03 Temperature 97 F L Temperature Source Temporal Pulse Rate 147 H Respiratory Rate 30 H Respiratory Pattern Tachypnea Blood Pressure 89/48 L Blood Pressure Mean 61 Pulse Ox 89 98 Oxygen Delivery Method Non-Rebreather Non-Rebreather Oxygen Flow Rate (L/min) 15 15 01/03/25 22:27 01/03/25 22:30 01/03/25 23:00 Temperature 101.6 F H 101.1 F H Temperature Source Core Core Pulse Rate 137 H 135 H Respiratory Rate 20 H 22 H Respiratory Pattern Blood Pressure 94/48 L 98/46 L Blood Pressure Mean 63 63 Pulse Ox 100 12 100 Oxygen Delivery Method Non-Rebreather High Flow High Flow Oxygen Flow Rate (L/min) 15 12 12 01/03/25 23:30 01/03/25 23:30 01/03/25 23:30 Temperature 100.8 F H 100.9 F H Temperature Source Core Core Pulse Rate 124 H 124 H Respiratory Rate 22 H 22 H Respiratory Pattern Blood Pressure 97/51 L 97/51 L Blood Pressure Mean 66 66 Pulse Ox 100 100 98 Oxygen Delivery Method Nasal Cannula Nasal Cannula Nasal Cannula Oxygen Flow Rate (L/min) 4 4 4 01/03/25 23:45 01/03/25 23:45 01/03/25 23:54 Temperature 100.9 F H Temperature Source Core Pulse Rate 123 H Respiratory Rate 22 H Respiratory Pattern Blood Pressure 85/46 L Blood Pressure Mean 59 Pulse Ox 98 98 93 Oxygen Delivery Method Nasal Cannula Nasal Cannula Room Air Oxygen Flow Rate (L/min) 2 2 01/04/25 00:00 01/04/25 00:00 01/04/25 00:15 Temperature 101.0 F H 101.0 F H 101.1 F H Temperature Source Core Core Core Pulse Rate 124 H 123 H 122 H Respiratory Rate 22 H 22 H 22 H Respiratory Pattern Blood Pressure 83/49 L 83/49 L 86/46 L Blood Pressure Mean 60 60 59 Pulse Ox 93 93 94 Oxygen Delivery Method Room Air Room Air Room Air Oxygen Flow Rate (L/min) 01/04/25 00:30 01/04/25 01:00 01/04/25 01:30 Temperature Temperature Source Pulse Rate 123 H 120 H 119 H Respiratory Rate 22 H 22 H 20 H Respiratory Pattern Blood Pressure 84/46 L 79/38 L 89/49 L Blood Pressure Mean 58 51 62 Pulse Ox 95 96 96 Oxygen Delivery Method Room Air Room Air Room Air Oxygen Flow Rate (L/min) Weight Weight: 135 lb 9.349 oz Body Mass Index (BMI) 23.3 Physical Exam Const Constitutional Narrative: Patient is lethargic but arousable. HEENT normocephalic, head/scalp atraumatic and hearing grossly normal bilaterally HEENT Narrative: Mucous membranes dry. Eyes PERRL and EOMs intact bilaterally Neck no lymphadenopathy, supple and no JVD Resp Resp Narrative: Diminished breath sounds throughout. Cardio regular rate and regular rhythm GI normal to inspection, nondistended, normoactive bowel sounds, soft to palpation, non-tender and non-distended Extremity normal to inspection and no clubbing, cyanosis or edema Skin Skin Narrative: Patient has evidence of rash, abscess, wounds or jaundice. Neuro Neuro Narrative: Patient is lethargic but arousable. Sensorium / Orientation: awake, alert and oriented to person Speech: speech normal Psych Psych Narrative: Patient is lethargic but arousable. Results Medical Records Data Attestation: I reviewed the patient's medical records Lab / Micro Data Attestation: I reviewed the patient's lab results. 01/03/25 22:00 01/03/25 22:00 Labs: Laboratory Results - last 24 hr 01/03/25 22:00: WBC 17.3 H, RBC 5.39, Hgb 12.9, Hct 42.9, MCV 79.6 L, MCH 23.9 L, MCHC 30.1 L, RDW Std Deviation 49.3 H, RDW Coeff of Hung 17.7 H, Plt Count 564 H, MPV 8.1, Immature Gran % (Auto) 1.900 H, Neut % (Auto) 92.8 H, Lymph % (Auto) 1.5 L, [place] % (Auto) 3.1, Eos % (Auto) 0.1, Baso % (Auto) 0.6, Absolute Neuts (auto) 16.0 H, Absolute Lymphs (auto) 0.26 L, Nucleated RBC % 0, PT 15.8 H, INR 1.2, APTT 29.3, Sodium 136, Potassium 5.5 H, Chloride 99, Carbon Dioxide 14.4 L, Anion Gap 22 H, BUN 39 H, Creatinine 0.89, Estim Creat Clear Calc 53.69, Est GFR (MDRD) Non-Af 72, BUN/Creatinine Ratio 44.1 H, Glucose 153 H, Lactic Acid 1.7, Calcium 10.6, Total Bilirubin 0.18, AST 22, ALT 23, Alkaline Phosphatase 100, Total Protein 7.7, Albumin 3.2 L, Globulin 4.5 H, Albumin/Globulin Ratio 0.7 L 01/03/25 22:08: POC Glucose 146 H 01/03/25 22:21: Urine Color Yellow, Urine Clarity Turbid, Urine pH 6.0, Ur Specific Newman 1.015, Urine Protein 100 H, Urine Glucose (UA) Normal, Urine Ketones 5 H, Urine Occult Blood 250 H, Urine Nitrite Negative, Urine Bilirubin Negative, Urine Urobilinogen Normal, Ur Leukocyte Esterase 500 H, Urine RBC 0 SEEN, Urine WBC >100 SEEN, Ur Squamous Epith Cells 0 SEEN, Urine Bacteria 0 SEEN, Urine Mucus 0 SEEN ABG Data ABG results: ABG 01/03/25 22:21 Specimen Type ART Sample Site L Radial pH 7.39 Bicarbonate Actual 15.8 L Total CO2 17 Base Excess -9 L O2 Saturation 99 O2 % 15.0 ABG pCO2 26.1 L ABG pO2 135 H Bebeto Test Positive O2 Delivery Device NRB Vent Mode Not entered Imaging Radiology Impression Brain CT 01/03/25 22:03 IMPRESSION: No evidence of acute intracranial pathology. Moderate generalized parenchymal volume loss, and patchy hypoattenuation in the supratentorial white matter similar to prior exam; likely a combination of chronic microangiopathic changes and demyelinating disease, with reported history of multiple sclerosis. Reading Location: [facility] Chest X-Ray 01/03/25 22:35 IMPRESSION: Left basilar/retrocardiac consolidation and/or atelectasis. Reading Location: [facility] Imaging Services [address] [place] [address] CT Chest, Abd, Pelvis WO Cont MR#: [id number] Acct: [id number] Name: BRITNEY PERAZA Rep #: [id number] : 1960 F 64 From: Sahil Craven MD PCP: Dr. Breanne Ruiz MD Status: ADM IN Study: CT Chest, Abd, Pelvis WO Cont Date of Exam: 01/04/25 Exam# [id number] Ordering Dr: Willian Fuller DO PROCEDURE: CT CHEST, ABD, PELVIS WO CONT 01/04/2025 REASON FOR EXAM: SUSPECTED PNA ON CXR WITH UTI AND SEPSIS. TECHNIQUE: Chest, abdomen and pelvis CT without intravenous contrast. Coronal and Sagittal reconstruction series were provided. One or more dose reduction techniques were used (e.g., Automated exposure control, adjustment of the mA and/or kV according to patient size, use of iterative reconstruction technique. RADIATION DOSE SUMMARY: CTDlvol: 23 mGy DLP: 1069 mGycm COMPARISON: No FINDINGS: Unremarkable base of neck and axilla. Thoracic spine scoliosis and degeneration. Esophageal reflux. Upper limits of normal heart size. Moderate pericardial effusion. No acute vascular pathology on noncontrast scanning. Pectus deformity. Right IJ CVC tip in SVC. No acute chest wall findings. Central airways are patent. Bibasilar posterior airspace disease favoring atelectasis. No definite consolidation large effusion or pneumothorax. Upper abdominal solid organs show no acute findings. Bilateral low-density adrenal gland nodularity favoring benign etiology. Bilateral nephrolithiasis, including multiple 1 cm left renal calcifications. Bilateral moderate hydronephrosis. This may be on the basis of reflux, there are no ureteral stones. On the left, there is fat stranding in the renal sinus, possible urinary tract infection. There is bladder wall thickening with adjacent fat stranding. Catheter tip in bladder lumen. Normal uterus and ovaries. No retroperitoneal or pelvic adenopathy. No free air. Nonobstructed bowel. Diverticulosis. No acute large bowel findings. Lumbar spine degeneration. No acute abdominal wall findings. CT/CT Chest, Abd, Pelvis WO Cont IMPRESSION: Bibasilar airspace disease favoring atelectasis. Possible left-sided urinary tract infection. Possible bilateral ureteral reflux. Cystitis. Reading Location: [place] [address] CC: Dr. Willian Fuller DO; Dr. Breanne Ruiz MD ~ [employer]: Signed Assessment & Plan Assessment/Plan (1) Sepsis with encephalopathy and septic shock: QUALIFIERS: Sepsis type: sepsis due to unspecified organism Qualified Code(s): A41.9 - Sepsis, unspecified organism; R65.21 - Severe sepsis with septic shock; G93.41 - Metabolic encephalopathy (2) Acute cystitis without hematuria: (3) Multiple sclerosis: (4) Hyperkalemia: (5) Dehydration: (6) Left lower lobe pulmonary infiltrate: (7) Multiple sclerosis: (8) Chronic pain: QUALIFIERS: Chronic pain type: chronic pain syndrome Qualified Code(s): G89.4 - Chronic pain syndrome (9) Reactive thrombocytosis: PLAN: Plan 1. Fever of 101.6 ?F present on admission with Hypotension of 79/38 mmHg noted shortly after admission requiring emergent central line placement in ER with corresponding Leukocytosis of 17.3 K and Left-shift of 1.9% and UA positive for Acute Cystitis; without hematuria consistent with suspected Sepsis with Septic Shock - Admit to ICU for ongoing treatment under sepsis protocol. Continue empiric ceftriaxone begun in the ER and await culture and sensitivity data. Give pantoprazole IV daily for GI prophylaxis. Give acetaminophen LA for pain or fever. Give ondansetron IV as needed for nausea or vomiting. 2. Septic Encephalopathy due to #1 in the setting of a known history of multiple sclerosis; with patient residing at [facility] and [facility]; without intubation - Minimize [employer]ER-active medications. Check TSH, B12, Folate, HgbA1c, Lipid Profile, SHEYLA and UDS to further evaluate for potentially reversible causes of confusion. Otherwise, continue care as outlined above and monitor for improvement. 3. Hyperkalemia of 5.5 mmol/L present on admission complicating #1 & #2 - Vigorously volume resuscitate and then recheck CMP in AM to ensure improvement. 4. Dehydration; evidenced by BUN/creatinine ratio of 44.1 present on admission compounding #1 - #3 - Give aggressive IVF and Hemoccult stools in case of occult GI bleed. Patient on IV pantoprazole for #1. 5. CXR that revealed Left basilar/retrocardiac consolidation and/or atelectasis adding to the medical complexity of #1 - #4 - Check CT of chest/abdomen/pelvis to definitively identify potential infiltrate suspected on CXR. Resume IV azithromycin begun in ER until infection definitively ruled out. Check viral respiratory panel. Check urinary antigens Streptococcus pneumonia and Legionella. 6. OA; with chronic pain on prn oxycodone q. 4 hours prn likely playing at least a partial role in #2 - Hold opiates since oversedation is likely at least partially related to the use of this agent. 7. Thrombocytosis of 564K present on admission likely reactive due to #1 - Noted. Check CBC daily to follow trend 8. Essential hypertension; on atenolol - Hold atenolol in light of #1. 9. Hyperlipidemia; on atorvastatin and fenofibrate - Hold these agents until patient can safely tolerate oral intake. 10. DM-2; unknown control on dulaglutide - Hold dulaglutide while inpatient. Keep NPO for now. FSBS q. 4 hours plus lowest-intensity SSI. Check HgbA1c to objectively assess quality of diabetic control. 11. Alleged history of chronic hypoxic respiratory failure - Continue supplemental oxygen. 12. Depression; on escitalopram - Restart tis agent when patient can tolerate oral intake. 13. History of appendectomy - Noted for the sake of completeness. 14. History of vertigo - Noted. 15. DVT/GI prophylaxis - SCD's only for now with sharply elevated BUN/creatinine ratio. Pantoprazole 40 mg IV BID. Total time: Approximately (but not less than) 75 minutes. Sepsis Attestation Sepsis Alert: Yes Sepsis Attestation: Agree w/Sepsis Date exam was performed: 01/04/25 Time exam was performed: 02:35 Possible Source of Sepsis: Genitourinary Sepsis Organ Dysfunction Criteria Present: SBP < 90 mmHg or MAP < 65 mmHg, SBP decrease of more than 40 mmHg and New/Unexplained change in mental status Supportive Findings: In the ER she was noted to have a Fever of 101.6 ?F present on admission with Hypotension of 79/38 mmHg noted shortly after admission requiring emergent central line placement in ER with corresponding Leukocytosis of 17.3 K and Left-shift of 1.9% and UA positive for Acute Cystitis; without hematuria consistent with suspected Sepsis with Septic Shock complicated by clinical evidence of Septic Encephalopathy and laboratory evidence of Hyperkalemia of 5.5 mmol/L present on admission and Dehydration; evidenced by BUN/creatinine ratio of 44.1 present on admission with patient dropping her blood pressure into the low 80 mmHg systolic range necessitating emergent Right IJ CVC placement in the ER for initiation of norepinephrine drip to keep MAP greater than 65 mmHg. Fluid Resuscitation Fluid resuscitation indicated?: Yes Fluid Resuscitation ordered: 30 ml/kg fluid bolus ordered Amount of fluid ordered: 2 Sepsis Note Date exam was performed: 01/04/25 Time exam was performed: 04:35 Sepsis Attestation: Sepsis re-evaluation was performed Response to fluids: Vasopressors started Charges/Coding Visit Charges Inpatient E&M: 46767 Init Hosp L3
--- NOTE | 2025-01-04 02:05 | RAD_ITS ---
PROCEDURE: CHEST 1 VIEW (PORTABLE) 01/04/2025 REASON FOR EXAM: LINE PLACEMENT TECHNIQUE: Frontal view of the chest. COMPARISON: 01/03/2025 FINDINGS: Mild scoliosis. Normal heart size. Right IJ CVC tip in SVC. Elevated right hemidiaphragm. Under aeration at the right lung base. Persistent retrocardiac opacity, atelectasis/consolidation, but some interval improvement.. No effusion or pneumothorax. RAD/Chest 1 View (Portable) IMPRESSION: Successful CVC placement. Reading Location: [place] [address]
[2025-01-04] MEDS: 0.9% Normal Saline (1000mL) 1,000 ML 999 ML IV (02:13)
[2025-01-04] MEDS: Norepinephrine Bit/0.9% NaCl 8 MG/250 ML IV.SOLN 9.4 MG CONT INF (02:13)
--- OUTSIDE RECORDS SUMMARY | 2025-01-04 02:41 | XMS RPT_ITS | CCD ---
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 Joan Hughes Primary Care Provider [phone] Dr. Erick Jin Emergency Provider [phone] Faheem Lamb Admit Provider Dr. Faheem Lamb Attending Provider Dr. Faheem Lamb Other Provider Dr. Maile Apodaca Attending Provider Dr. Maile Apodaca Other Provider Dr. Maile Apodaca Referring Provider Dr. Jose Cruz Wright Attending Provider Dr. Jose Cruz Wright Other Provider Dr. Alan Terry Other Provider Jaylen RESIDENT CARE AID, RESIDENT CARE AID-C Meera Other Provider Dr. Rina Diaz Other Provider Dr. Alan Terry Attending Provider Dr. Rina Diaz Attending Provider Dr. Bijan Swain Attending Provider Dr. Bijan Swain Other Provider Dr. Anil Abreu Attending Provider Dr. Alek Ray Referring Provider Elin RESIDENT CARE AID, RESIDENT CARE AID-C Britney Attending Provider Joan Sher MD Primary Care Provider JOAN HUGHES Primary Care Unavailable WILLARD EPPERSON Attending JOAN Antunez Primary Care Unavailable WILLARD EPPERSON Attending Dr. Joan Antunez Primary Care Provider Dr. Joan Hughes Primary Care Provider Elin RESIDENT CARE AID, RESIDENT CARE AID-C Britney Attending Provider Dr. Joan Sher Primary Care Provider Elin RESIDENT CARE AID, RESIDENT CARE AID-C Britney Attending Provider Dr. Joan Sher Primary Care Provider Elin RESIDENT CARE AID, RESIDENT CARE AID-C Britney Attending Provider Dr. Joan Sher Primary Care Provider Elin RESIDENT CARE AID, RESIDENT CARE AID-C Britney Attending Provider Dr. Joan Sher Primary Care Provider Tickgray RESIDENT CARE AID, RESIDENT CARE AID-C Britney Attending Provider Joan Sher MD Primary Care Provider Dr. Breanne Ruiz Attending Provider [phone] Dr. Joan Hughes Primary Care Provider Elin RESIDENT CARE AID, RESIDENT CARE AID-C Britney Attending Provider Dr. Breanne Hensley Attending Provider [phone] Dr. Joan Hughes Primary Care Provider Elin RESIDENT CARE AID, RESIDENT CARE AID-C Britney Attending Provider Dr. Joan Sher Primary Care Provider Elin RESIDENT CARE AID, RESIDENT CARE AID-C Britney Attending Provider Dr. Breanne Hensley Attending Provider [phone] Dr. Joan Hughes Primary Care Provider Elin RESIDENT CARE AID, RESIDENT CARE AID-C Britney Attending Provider Dr. Joan Sher Primary Care Provider Tickgray RESIDENT CARE AID, RESIDENT CARE AID-C Britney Attending Provider MD Breanne Robbins Attending Provider Dr. Joan Sher Primary Care Provider Tickgray RESIDENT CARE AID, RESIDENT CARE AID-C Britney Attending Provider Dr. Breanne Ruiz Attending Provider [phone] Dr. Joan Hughes Primary Care Provider Tickgray RESIDENT CARE AID, RESIDENT CARE AID-C Britney Attending Provider OLGA Santacruz Attending Provider [phone] FRANCIS Romeo Attending Provider [phone] Dr. Joan Hughes Primary Care Provider Tickgray RESIDENT CARE AID, RESIDENT CARE AID-C Britney Attending Provider Dr. Breanne Ruiz Attending Provider [phone] OLGA Santacruz Attending Provider [phone] Ferullo, RESIDENT CARE AID-C Poornima Attending Provider Dr. Joan Hughes Primary Care Provider Dr. Breanne Ruiz Attending Provider [phone] Dr. Joan Hughes Primary Care Provider Elin RESIDENT CARE AID, RESIDENT CARE AID-C Britney Attending Provider Dr. Joan Hughes MD Primary Care Provider Elin RESIDENT CARE AID-C, Britney Attending Provider Breanne Ruiz MD Attending Provider Unavaila keara Ruiz MD, Breanne Referring Provider UnavailDr. Breanne Cole MD Attending Provider [phone] Dr. Joan Hughes MD Primary Care Provider Elin RESIDENT CARE AID-C, Britnye Attending Provider Breanne Ruiz MD Attending Provider Unavaila keara Ruiz MD, Breanne Referring Provider Unavaila Dr. Breanne Babin MD Attending Provider [phone] Elin RESIDENT CARE AID-C, Britney Attending Provider [phone] Dr. Joan Hughes MD Primary Care Provider [phone] Breanne Ruiz MD Attending Provider Unavaila ble Elin RESIDENT CARE AID-C, Britney Attending Provider Breanne Ruiz MD Referring [...] Unavailable [place], Joan Primary Care Unavailable Tickton RESIDENT CARE AID, Britney Attending Unavailable Oleghe OLS, Efewongbe Attending Unavailabl e Elderbrock, Joan Primary Care Unavailable [place], Joan Primary Care Unavailable [place] RESIDENT CARE AID, Britney Attending Unavailable [place] RESIDENT CARE AID, Britney Attending Unavailable [place], Joan Primary Care Unavailable [place] RESIDENT CARE AID, Britney Attending Unavailable [place], Joan Primary Care Unavailable Oleghe, Efewongbe Attending Unavailable [place], Joan Primary Care Unavailable [place] RESIDENT CARE AID, Britney Attending Unavailable [place], Joan Primary Care Unavailable [place], Joan Primary Care Unavailable [place] RESIDENT CARE AID, Britney Attending Unavailable [place], Joan Primary Care Unavailable Oleghe, Efewongbe Attending Unavailable [place] RESIDENT CARE AID, Britney Attending Unavailable [place], Joan Primary Care Unavailable [place], Joan Primary Care Unavailable Oleghe, Efewongbe Attending Unavailable [place], Joan Primary Care Unavailable [place] RESIDENT CARE AID, Britney Attending Unavailable [place], Joan Primary Care Unavailable [place] RESIDENT CARE AID, Britney Attending Unavailable [place], Joan Primary Care Unavailable Oleghe, Efewongbe Attending Unavailable [place], Joan Primary Care Unavailable [place] RESIDENT CARE AID, Britney Attending Unavailable [place] RESIDENT CARE AID, Britney Attending Unavailable [place], Joan Primary Care Unavailable Oleghe OLS, Efewongbe [facility] Unavailable Allergies Allergy Classification Reported Allergen(s) Allergy Type Date of Onset Reaction(s) Facility Aspirin / Caffeine / Orphenadrine (11 sources) Aspirin / Caffeine / Orphenadrine Drug Allergy [address] [facility] NSAIDs (20 sources) Ibuprofen Drug Allergy 5 Swelling, Hives, Itching [facility] Penicillins (antibiotic) (11 sources) Penicillins Drug Allergy 5 [facility] Sulfonamides (antibiotic) (11 sources) Sulfonamides (Antibiotic) Drug Allergy 6 [facility] Tetracyclines (antibiotic) (11 sources) Tetracycline Drug Allergy 5 [facility] (20 sources) aspirin / caffeine / orphenadrine; Translations: [ORPHENADRINE- A-CAFFEINE] Propensity to adverse reactions to drug [address] [facility] Work Phone: (20 sources) ibuprofen; Translations: [IBUPROFEN] Propensity to adverse reactions to drug [address] [facility] Work Phone: (20 sources) naproxen; Translations: [NAPROXEN SODIUM] Propensity to adverse reactions to drug 5 Hives, Itching, Swelling [facility] Work Phone: (20 sources) Penicillins; Translations: [PENICILLINS] Propensity to adverse reactions to drug [address] [facility] Work Phone: (20 sources) Sulfonamides (Antibiotic); Translations: [SULFA (SULFONAMIDE ANTIBIOTICS)] Propensity to adverse reactions to drug 6 [facility] Work Phone: (20 sources) tetracycline; Translations: [TETRACYCLINE] Propensity to adverse reactions to drug 5 [facility] Work Phone: (6 sources) Penicillins Propensity to adverse reactions to drug 5 [facility] (8 sources) Sulfonamides (Antibiotic) Propensity to adverse reactions to drug 6 [facility] (20 sources) Naproxen Drug Allergy 1 Rash [facility] (20 sources) tiZANidine Drug Allergy 9 Other: See Comments [facility] (2 sources) Penicillins Propensity to adverse reactions 5 [facility] (1 source) Naproxen Drug Allergy 1 [facility] (1 source) Penicillins Drug allergy (disorder) 1 [facility] (1 source) Sulfonamides (Antibiotic) Drug allergy (disorder) 1 [facility] (1 source) tiZANidine Drug Allergy 1 [facility] Medications Current Medications Medication Drug Class(es) Dates Sig (Normalized) Sig (Original) [facility] [id number] (Pf) 60 McG/0.5 Ml Intramuscular Syringe (9 [...] 0.9% (NS) 25 mL/hr, Intravenous, Continuous, Starting [facility] 05/04/17 at 0930 Rate/Dose Verify 05/04/2017 11:00 EST 25 mL/hr 25 mL/hr Start: 04-13-2017 End: 04-13-2017 take 25 mL intravenous route every hour sodium chloride 0.9% (NS) 25 mL/hr, Intravenous, Continuous, Starting [facility] 04/13/17 at 1215 Rate/Dose Verify 04/13/2017 12:15 [...] Auto (Unsp spec) [#/Vol] 0.91 10*3/uL 0.83-4.51 [facility] Absolute neutrophil countOrd ered By: Breanne Ruiz on 12-16-2024 Neutrophils (Bld) [#/Vol] 10.6 10*3/uL High 2.0-7.7 [facility] Anion gap in Serum or Plasma Ordered By: Breanne Kirklandmichaelbeverly on 12-16-2024 Anion gap [Moles/Vol] 15 mmol/L 5-[address] [facility] Automated lymphocyte count a s percentage of total leukocytesOrdered By: Breanne Ruiz on 12-16-2024 Lymphocytes/100 WBC Auto (Unsp spec) 6.6 % Low 19-41 [facility] BUN/creatinine ratioOrdered By: [facility] Kirklandmichaelbeverly on 12-16-2024 Urea nitrogen/Creatinine [Mass ratio] 27.6 mg/mg High 10-20 [facility] Basophil percentageOrdered B y: Abbielalitachetan Kirklandmichaelbeverly on 12-16-2024 Basophils/100 WBC (Bld) 0.7 % 0-1 [facility] Carbon dioxide, total [Moles /volume] in Central venous bloodOrdered By: Breanne Ruiz on 12-16-2024 CO2 [Moles/Vol] 16.7 mmol/L Low 21.0-32.0 [facility] Chloride assayOrdered By: adalbertochetan Ruiz on 12-16-2024 Chloride [Moles/Vol] 105 mmol/L 98-108 [facility] Eosinophil percentageOrdered By: [facility] Kirklandmichaelbeverly on 12-16-2024 Eosinophils/100 WBC (Bld) 1.2 % 0-5 [facility] Erythrocyte distribution wid th ratioOrdered By: Breanne Ruiz on 12-16-2024 Erythrocyte distribution width (RBC) [Ratio] 16.9 % High 11.6-14.6 [facility] Erythrocyte distribution wid th standard deviationOrdered By: adalbertoquincychetan Kirklandmichaelbeverly on 12-16-2024 Erythrocyte distribution width (RBC) [Ratio] 50.9 fl High 35.1-43.9 [facility] Glomerular filtration rate ( GFR) estimation/1.73 sq m using serum, plasma, or whole bOrdered By: Breanne Ruiz on 12-16-2024 GFR/1.73 sq M.predicted among non-blacks MDRD (S/P/Bld) [Vol rate/Area] 60 mL/min/{1.73_m2} >60 [facility] Comment on above: mL/min/1.73m2 CKD-EP I Creatinine Equation (2020) Hematocrit Auto (Bld) [Volum e fraction]Ordered By: Breanne Ruiz on 12-16-2024 Hematocrit (Bld) [Volume fraction] 42.8 % 37-47 [facility] Hemoglobin measurementOrdere d By: Breanne Ruiz on 12-16-2024 Hemoglobin (Bld) [Mass/Vol] 12.5 g/dL 12.0-15.0 [facility] Immature granulocytes/100 WB C Auto (Bld)Ordered By: Abbiequincychetan Ruiz on 12-16-2024 Immature granulocytes/100 WBC (Bld) 1.000 % High 0.0-0.9 [facility] Comment on above: IG% - Immature Granu locytes (promyelocytes, myelocytes and metamyelocytes) > 1% indicates that a LEFT SHIFT is Present. MCV (mean corpuscular volume ) determinationOrdered By: Breanne Ruiz on 12-16-2024 MCV (RBC) [Entitic vol] 83.6 fL 81-99 [facility] Mean corpuscular hemoglobin (MCH) determinationOrdered By: Breanne Ruiz on 12-16-2024 MCH (RBC) [Entitic mass] 24.4 pg Low 27.0-32.0 [facility] Mean corpuscular hemoglobin concentration (MCHC) determinationOrdered By: Breanne Ruiz on 12-16-2024 MCHC (RBC) [Mass/Vol] 29.2 g/dL Low 32-[address] [facility] Mean platelet volume determi nationOrdered By: vannessa Ruiz on 12-16-2024 Platelet mean volume (Bld) [Entitic vol] 8.5 fL 6.2-12.0 [facility] Monocyte percentageOrdered B y: Breanne Ruiz on 12-16-2024 Monocytes/100 WBC (Bld) 13.7 % High 0-10 [facility] Neutrophil percentageOrdered By: Breanne Ruiz on 12-16-2024 Neutrophils/100 WBC (Bld) 76.8 % High 47-70 [facility] Nucleated red blood cell per centageOrdered By: Elioadalbertotracy Isaelhussain on 12-16-2024 Nucleated RBC/100 WBC (Bld) [Ratio] 0 % 0-5 [facility] Platelet countOrdered By: Elio vannessa Isaelmichaelbeverly on 12-16-2024 Platelets (Bld) [#/Vol] 520 10*3/uL High 150-450 [facility] Platelet estimateOrdered By: Breanne Kirklandmichaelbeverly on 12-16-2024 Platelets LM Ql (Bld) MOD INC ADEQ [facility] Potassium measurement (mass/ volume)Ordered By: Breanne Ruiz on 12-16-2024 Potassium (Unsp spec) [Mass/Vol] 4.3 mmol/L 3.3-5.1 [facility] RBC Auto (Bld) [#/Vol]Ordere d By: Abbietracy Isaelmichaelbeverly on 12-16-2024 RBC (Bld) [#/Vol] 5.12 10*6/uL 4.2-5.4 [facility] Serum creatinine measurement (mass/volume)Ordered By: Breanne Kirklandmichaelbeverly on 12-16-2024 Creatinine [Mass/Vol] 1.03 mg/dL 0.70-1.[address] [facility] Serum glucose measurement (m ass/volume)Ordered By: Breanne Kirklandmichaelbeverly on 12-16-2024 Glucose [Mass/Vol] 133 mg/dL High 70-99 [facility] Serum or plasma calcium jj urement (mass/volume)Ordered By: Breanne Kirklandmichaelbeverly on 12-16-2024 Calcium [Mass/Vol] 10.1 mg/dL 7.6-11.0 [facility] Serum or plasma urea nitroge n measurement (mass/volume)Ordered By: Breanne Kirklandmichaelbeverly on 12-16-2024 Urea nitrogen [Mass/Vol] 28 mg/dL High 4-19 [facility] Sodium levelOrdered By: Abbie tracy Sara on 12-16-2024 Sodium [Moles/Vol] 136 mmol/L 133-145 [facility] White blood cell (WBC) count Ordered By: Breanne Ruiz on 12-16-2024 WBC (Bld) [#/Vol] 13.8 10*3/uL High 4.4-11.0 [facility] Bilirubin Test strip Ql (U)O rdered By: Breanne Ruiz on 12-13-2024 Bilirubin Ql (U) Negative Negative [facility] Ketones Test strip Ql (U)Ord ered By: Breanne Ruiz on 12-13-2024 Ketones Ql (U) Negative Negative [facility] Microscopic analysis of urin e for red blood cells (RBC)Ordered By: Breanne Ruiz on 12-13-2024 Microscopic analysis of urine for red blood cells (RBC) 50-100 SEEN /hpf 0-5 [facility] Mucus LM Ql (Urine sed)Order ed By: Breanne Ruiz on 12-13-2024 Mucus Ql (Urine sed) 0 SEEN /hpf [facility] Nitrite Test strip Ql (U)Ord ered By: Breanne Ruiz on 12-13-2024 Nitrite Ql (U) Negative Negative [facility] Protein Test strip Ql (U)Ord ered By: Breanne Ruiz on 12-13-2024 Protein Ql (U) 500 mg/dl High Negative [facility] Squamous epithelial cells de tection in urine sediment by light microscopyOrdered By: Breanne Ruiz on 12-13-2024 Epithelial cells.squamous LM Ql (Urine sed) 0-5 SEEN /hpf 5-10 [facility] Urine clarityOrdered By: Prashant Ruiz on 12-13-2024 Clarity (U) Turbid Clear [facility] Urine color determinationOrd ered By: Breanne Ruiz on 12-13-2024 Color (U) Sunita Yellow [facility] Urine cultureOrdered By: Prashant Ruiz on 12-13-2024 Bacteria identified Cx Nom (U) Staphylococcus aureus Abnormal [facility] Bacteria identified Cx Nom (U) Positive Abnormal [facility] Urine glucose detectionOrder ed By: Breanne Ruiz on 12-13-2024 Glucose Ql (U) Normal mg/dl Normal [facility] Urine leukocyte esterase det ection by dipstickOrdered By: Breanne Ruiz on 12-13-2024 Leukocyte esterase Test strip Ql (U) 500 /ul High Negative [facility] Urine pHOrdered By: Bhupendra Ruiz on 12-13-2024 pH (U) 6.0 [pH] 5.0 - 8.0 [facility] Urine sediment bacteria coun t by microscopy (number/high power field)Ordered By: Breanne Ruiz on 12-13-2024 Bacteria LM.HPF (Urine sed) [#/Area] 3 /[HPF] None Seen [facility] Urine specific gravity measu rementOrdered By: Breanne Ruiz on 12-13-2024 Specific gravity (U) [Rel density] 1.020 1.002-1.030 [facility] Urine urobilinogen measureme ntOrdered By: Breanne Ruiz on 12-13-2024 Urobilinogen Ql (U) Normal mg/dl Normal [facility] White blood cell countOrdere d By: Breanne Ruiz on 12-13-2024 White blood cell count >100 SEEN /hpf 0-5 [facility] Comment on above: Microscopic field is filled. Other elements may be obscured. Hemoglobin A1c percentageOrd ered By: Breanne Ruiz on 12-04-2024 HbA1c (Bld) [Mass fraction] 6.9 % High <5.7 [facility] Comment on above: Normal < 5.7 % Predi abetic 5.7 - 6.4 % Diabetic >or= 6.5 % Please note range changes. Bilirubin Test strip Ql (U)O rdered By: Breanne Ruiz on 11-15-2024 Bilirubin Ql (U) Negative Negative [facility] Ketones Test strip Ql (U)Ord ered By: Breanne Ruiz on 11-15-2024 Ketones Ql (U) Negative Negative [facility] Nitrite Test strip Ql (U)Ord ered By: Breanne Ruiz on 11-15-2024 Nitrite Ql (U) Negative Negative [facility] Protein Test strip Ql (U)Ord ered By: Breanne Ruiz on 11-15-2024 Protein Ql (U) 500 mg/dl High Negative [facility] Urine clarityOrdered By: Prashant Ruiz on 11-15-2024 Clarity (U) Turbid Clear [facility] Urine color determinationOrd ered By: Breanne Ruiz on 11-15-2024 Color (U) Yellow Yellow [facility] Urine cultureOrdered By: Prashant Ruiz on 11-15-2024 Bacteria identified Cx Nom (U) Proteus mirabilis Abnormal [facility] Urine glucose detectionOrder ed By: Breanne Ruiz on 11-15-2024 Glucose Ql (U) Normal mg/dl Normal [facility] Urine leukocyte esterase det ection by dipstickOrdered By: Breanne Ruiz on 11-15-2024 Leukocyte esterase Test strip Ql (U) 500 /ul High Negative [facility] Urine pHOrdered By: Bhupendra Ruiz on 11-15-2024 pH (U) 6.0 [pH] 5.0 - 8.0 [facility] Urine specific gravity measu rementOrdered By: Breanne Ruiz on 11-15-2024 Specific gravity (U) [Rel density] 1.020 1.002-1.030 [facility] Urine urobilinogen measureme ntOrdered By: Breanne Ruiz on 11-15-2024 Urobilinogen Ql (U) Normal mg/dl Normal [facility] Anion gap in Serum or Plasma Ordered By: Breanne Ruiz on 11-07-2024 Anion gap [Moles/Vol] 14 mmol/L 5-[address] [facility] BUN/creatinine ratioOrdered By: Breanne Ruiz on 11-07-2024 Urea nitrogen/Creatinine [Mass ratio] 31.2 mg/mg High 10- [facility] Carbon dioxide, total [Moles /volume] in Central venous bloodOrdered By: Breanne Ruiz on 11-07-2024 CO2 [Moles/Vol] 20.8 mmol/L Low 21.0-32.0 [facility] Chloride assayOrdered By: Elio Ruiz on 11-07-2024 Chloride [Moles/Vol] 102 mmol/L 98-108 [facility] Glomerular filtration rate ( GFR) estimation/1.73 sq m using serum, plasma, or whole bOrdered By: Abbielalitachetan Kirklandmichaelbeverly on 11-07-2024 GFR/1.73 sq M.predicted among non-blacks MDRD (S/P/Bld) [Vol rate/Area] 41 mL/min/{1.73_m2} Low >60 [facility] Comment on above: mL/min/1.73m2 CKD-EP I Creatinine Equation (2020) Potassium measurement (mass/ volume)Ordered By: Breanne Ruiz on 11-07-2024 Potassium (Unsp spec) [Mass/Vol] 3.9 mmol/L 3.3-5.1 [facility] Serum creatinine measurement (mass/volume)Ordered By: Breanne Ruiz on 11-07-2024 Creatinine [Mass/Vol] 1.41 mg/dL High 0.70-1.[address] [facility] Serum glucose measurement (m ass/volume)Ordered By: Breanne Ruiz on 11-07-2024 Glucose [Mass/Vol] 151 mg/dL High 70-99 [facility] Serum or plasma calcium jj urement (mass/volume)Ordered By: Breanne Ruiz on 11-07-2024 Calcium [Mass/Vol] 9.8 mg/dL 7.6-11.0 [facility] Serum or plasma urea nitroge n measurement (mass/volume)Ordered By: Breanne Ruiz on 11-07-2024 Urea nitrogen [Mass/Vol] 44 mg/dL High 4-19 [facility] Sodium levelOrdered By: Abbie tracy Iaselmichaelbeverly on 11-07-2024 Sodium [Moles/Vol] 138 mmol/L 133-145 [facility] Absolute lymphocyte countOrd ered By: Britney Worthington on 11-05-2024 Lymphocytes Auto (Unsp spec) [#/Vol] 0.88 10*3/uL 0.83-4.51 [facility] Absolute neutrophil countOrd ered By: Britney Worthington on 11-05-2024 Neutrophils (Bld) [#/Vol] 8.0 10*3/uL High 2.0-7.7 [facility] Anion gap in Serum or Plasma Ordered By: Britney Worthington on 11-05-2024 Anion gap [Moles/Vol] 15 mmol/L 5-[address] [facility] Automated lymphocyte count a s percentage of total leukocytesOrdered By: Britney Worthington on 11-05-2024 Lymphocytes/100 WBC Auto (Unsp spec) 8.1 % Low 19-41 [facility] BUN/creatinine ratioOrdered By: Britney Worthington on 11-05-2024 Urea nitrogen/Creatinine [Mass ratio] 29.5 mg/mg High 10-20 [facility] Basophil percentageOrdered B y: Britney Worthington on 11-05-2024 Basophils/100 WBC (Bld) 1.1 % High 0-1 [facility] Bilirubin, totalOrdered By: Britney Worthington on 11-05-2024 Bilirubin [Mass/Vol] 0.21 mg/dL 0.00-1.30 [facility] Carbon dioxide, total [Moles /volume] in Central venous bloodOrdered By: Britney Worthington on 11-05-2024 CO2 [Moles/Vol] 18.5 mmol/L Low 21.0-32.0 [facility] Chloride assayOrdered By: Lawrence Worthington on 11-05-2024 Chloride [Moles/Vol] 103 mmol/L 98-108 [facility] Eosinophil percentageOrdered By: Britney Worthington on 11-05-2024 Eosinophils/100 WBC (Bld) 2.7 % 0-5 [facility] Erythrocyte distribution wid th ratioOrdered By: Britney Worthington on 11-05-2024 Erythrocyte distribution width (RBC) [Ratio] 16.5 % High 11.6-14.6 [facility] Erythrocyte distribution wid th standard deviationOrdered By: Britney Worthington on 11-05-2024 Erythrocyte distribution width (RBC) [Ratio] 49.0 fl High 35.1-43.9 [facility] Glomerular filtration rate ( GFR) estimation/1.73 sq m using serum, plasma, or whole bOrdered By: Britney Worthington on 11-05-2024 GFR/1.73 sq M.predicted among non-blacks MDRD (S/P/Bld) [Vol rate/Area] 46 mL/min/{1.73_m2} Low >60 [facility] Comment on above: mL/min/1.73m2 CKD-EP I Creatinine Equation (2020) Hematocrit Auto (Bld) [Volum e fraction]Ordered By: Britney Worthington on 11-05-2024 Hematocrit (Bld) [Volume fraction] 38.8 % 37-47 [facility] Hemoglobin measurementOrdere d By: Britney Worthington on 11-05-2024 Hemoglobin (Bld) [Mass/Vol] 11.7 g/dL Low 12.0-15.0 [facility] Immature granulocytes/100 WB C Auto (Bld)Ordered By: Britney Worthington on 11-05-2024 Immature granulocytes/100 WBC (Bld) 2.100 % High 0.0-0.9 [facility] Comment on above: IG% - Immature Granu locytes (promyelocytes, myelocytes and metamyelocytes) > 1% indicates that a LEFT SHIFT is Present. Laboratory - Chemistry and C hemistry - challengeOrdered By: Britney Worthington on 11-05-2024 AST [Catalytic activity/Vol] 23 U/L <32 [facility] MCV (mean corpuscular volume ) determinationOrdered By: Britney Worthington on 11-05-2024 MCV (RBC) [Entitic vol] 81.2 fL 81-99 [facility] Mean corpuscular hemoglobin (MCH) determinationOrdered By: Britney Worthington on 11-05-2024 MCH (RBC) [Entitic mass] 24.5 pg Low 27.0-32.0 [facility] Mean corpuscular hemoglobin concentration (MCHC) determinationOrdered By: Britney Worthington on 11-05-2024 MCHC (RBC) [Mass/Vol] 30.2 g/dL Low 32-[address] [facility] Mean platelet volume determi nationOrdered By: Britney Worthington on 11-05-2024 Platelet mean volume (Bld) [Entitic vol] 9.1 fL 6.2-12.0 [facility] Monocyte percentageOrdered B y: Britney Worthington on 11-05-2024 Monocytes/100 WBC (Bld) 12.5 % High 0-10 [facility] Neutrophil percentageOrdered By: Britney Worthington on 11-05-2024 Neutrophils/100 WBC (Bld) 73.5 % High 47-70 [facility] Nucleated red blood cell per centageOrdered By: Britney Worthington on 11-05-2024 Nucleated RBC/100 WBC (Bld) [Ratio] 0 % 0-5 [facility] Platelet countOrdered By: Lawrence Worthington on 11-05-2024 Platelets (Bld) [#/Vol] 488 10*3/uL High 150-450 [facility] Potassium measurement (mass/ volume)Ordered By: Britney Worthington on 11-05-2024 Potassium (Unsp spec) [Mass/Vol] 4.3 mmol/L 3.3-5.1 [facility] RBC Auto (Bld) [#/Vol]Ordere d By: Britney Worthington on 11-05-2024 RBC (Bld) [#/Vol] 4.78 10*6/uL 4.2-5.4 [facility] [facility] Serum creatinine measurement (mass/volume)Ordered By: Britney Worthington on 11-05-2024 Creatinine [Mass/Vol] 1.28 mg/dL High 0.70-1.[address] [facility] Serum globulin measurementOr dered By: Britney Worthington on 11-05-2024 Globulin (S) [Mass/Vol] 3.8 g/dL 2.2-4.2 [facility] Serum glucose measurement (m ass/volume)Ordered By: Britney Worthington on 11-05-2024 Glucose [Mass/Vol] 189 mg/dL High 70-99 [facility] Serum or plasma alanine juárez otransferase (ALT) measurementOrdered By: Britney Worthington on 11-05-2024 ALT [Catalytic activity/Vol] 45 U/L High <35 [facility] Serum or plasma albumin jj urement (mass/volume)Ordered By: Britney Worthington on 11-05-2024 Albumin [Mass/Vol] 3.3 g/dL Low 3.4-4.8 [facility] Serum or plasma albumin/glob ulin mass ratioOrdered By: Britney Worthington on 11-05-2024 Albumin/Globulin [Mass ratio] 0.9 {ratio} 0.9-2.4 [facility] Serum or plasma alkaline sofi sphatase measurementOrdered By: Britney Worthington on 11-05-2024 ALP [Catalytic activity/Vol] 95 U/L 35-104 [facility] Serum or plasma calcium jj urement (mass/volume)Ordered By: Britney Worthington on 11-05-2024 Calcium [Mass/Vol] 9.8 mg/dL 7.6-11.0 [facility] Serum or plasma urea nitroge n measurement (mass/volume)Ordered By: Britney Worthington on 11-05-2024 Urea nitrogen [Mass/Vol] 38 mg/dL High 4-19 [facility] Sodium levelOrdered By: Nancy Worthington on 11-05-2024 Sodium [Moles/Vol] 136 mmol/L 133-145 [facility] Total proteinOrdered By: Phillip Worthington on 11-05-2024 Protein [Mass/Vol] 7.1 g/dL 5.9-8.4 [facility] White blood cell (WBC) count Ordered By: Britney Worthington on 11-05-2024 WBC (Bld) [#/Vol] 10.9 10*3/uL 4.4-11.0 [facility] Gram stainOrdered By: Ana Lilia Worthington on 10-11-2024 Microscopic observation Gram stain Nom (Unsp spec) [facility] Calculated very low density lipoprotein (VLDL) cholesterol measurementOrdered By: Breanne Ruiz on 10-08-2024 Calculated very low density lipoprotein (VLDL) cholesterol measurement 52 mg/dL High 5-40 [facility] LDL calc ser/plasOrdered By: Breanne Ruiz on 10-08-2024 Cholesterol in LDL [Mass/Vol] 44 mg/dL [facility] Comment on above: Tzcvawzxxe=897-756 m g/dL & Higher Uecf=457 mg/dL or greater Screening total cholesterol/ high density lipoprotein (HDL) cholesterol ratioOrdered By: Breanne Ruiz on 10-08-2024 Cholesterol.total/Cholest dipak in HDL [Mass ratio] 4.16 {ratio} [facility] Serum or plasma cholesterol in HDL measurement (mass/volume)Ordered By: Breanne Ruiz on 10-08-2024 Cholesterol in HDL [Mass/Vol] 30 mg/dL Low >40 [facility] Comment on above: National Cholesterol Education Program (NCEP) guidelines:<40 mg/dL: Low HDL-cholesterol (major risk factor for CHD)>= 60 mg/dL: High HDL-cholesterol (negative risk factor for CHD)HDL-cholesterol is affected by a number of factors, e.g. smoking, exercise, hormones, sex and age. Serum or plasma cholesterol measurement (mass/volume)Ordered By: Breanne Ruiz on 10-08-2024 Cholesterol [Mass/Vol] 126 mg/dL <201 [facility] Comment on above: Cholesterol level, D esirable <200 mg/dLBorderline high cholesterol 200-239 mg/dLHigh cholesterol >=240 mg/dLRecommendations of the NCEP Adult Treatment Panel for the following risk-cutoff thresholds for the [place] population. Triglycerides measurementOrd ered By: Breanne Ruiz on 10-08-2024 Triglyceride [Mass/Vol] 261 mg/dL High <199 [facility] Comment on above: The drugs N-Acetylcy steine and Metamizole may falsely depress this assay. Normal range: <150 mg/dLBorderline High: 150-199 mg/dLHigh: 200-499 mg/dLVery High: >500 mg/dL Anion gap in Serum or Plasma Ordered By: Breanne Ruiz on 09-04-2024 Anion gap [Moles/Vol] 15 mmol/L 5-[address] [facility] BUN/creatinine ratioOrdered By: Breanne Ruiz on 09-04-2024 Urea nitrogen/Creatinine [Mass ratio] 30.0 mg/mg High 10-20 [facility] Carbon dioxide, total [Moles /volume] in Central venous bloodOrdered By: Breanne Ruiz on 09-04-2024 CO2 [Moles/Vol] 20.5 mmol/L Low 21.0-32.0 [facility] Chloride assayOrdered By: Elio Ruiz on 09-04-2024 Chloride [Moles/Vol] 102 mmol/L 98-108 [facility] GFR/1.73 sq M.predicted cinda g non-blacks MDRD (S/P/Bld) [Vol rate/Area]Ordered By: Breanne Ruiz on 09-04-2024 Estimated GFR (MDRD) Non-Af Amer 68 >60 [facility] Comment on above: mL/min/1.73m2 CKD-EP I Creatinine Equation (2020) Glomerular filtration rate ( GFR) estimation/1.73 sq m using serum, plasma, or whole bOrdered By: Breanne Ruiz on 09-04-2024 GFR/1.73 sq M.predicted among non-blacks MDRD (S/P/Bld) [Vol rate/Area] 68 mL/min/{1.73_m2} >60 [facility] Comment on above: mL/min/1.73m2 CKD-EP I Creatinine Equation (2020) Potassium (Unsp spec) [Mass/ Vol]Ordered By: Breanne Ruiz on 09-04-2024 Potassium [Moles/Vol] 4.1 mmol/L 3.3-5.[address] [facility] Comment on above: Hemolysis present, R esults could be affected. Potassium measurement (mass/ volume)Ordered By: Breanne Ruiz on 09-04-2024 Potassium (Unsp spec) [Mass/Vol] 4.1 mmol/L 3.3-5.1 [facility] Comment on above: Hemolysis present, R esults could be affected. Serum creatinine measurement (mass/volume)Ordered By: Breanne Ruiz on 09-04-2024 Creatinine [Mass/Vol] 0.93 mg/dL 0.70-1.[address] [facility] Serum glucose measurement (m ass/volume)Ordered By: Breanne Ruiz on 09-04-2024 Glucose [Mass/Vol] 137 mg/dL High 70-99 [facility] Serum or plasma calcium jj urement (mass/volume)Ordered By: Breanne Ruiz on 09-04-2024 Calcium [Mass/Vol] 10.3 mg/dL 7.6-11.0 [facility] Serum or plasma urea nitroge n measurement (mass/volume)Ordered By: Breanne Ruiz on 09-04-2024 Urea nitrogen [Mass/Vol] 28 mg/dL High 4-19 [facility] Sodium levelOrdered By: Abbie tracy Isaelmichaelbeverly on 09-04-2024 Sodium [Moles/Vol] 137 mmol/L 133-145 [facility] Hemoglobin A1c percentageOrd ered By: Breanne Ruiz on 09-03-2024 HbA1c (Bld) [Mass fraction] 7.9 % >5.7 [facility] Genital cultureOrdered By: Beverly borischetan Ruiz on 08-19-2024 Genital Culture Staphylococcus aureus Abnormal [facility] Gram stainOrdered By: Abbiegordy camarillo Isaelmichaelbeverly on 08-19-2024 Microscopic observation Gram stain Nom (Unsp spec) [facility] Absolute lymphocyte countOrd ered By: Breanne Ruiz on 08-06-2024 Lymphocytes Auto (Unsp spec) [#/Vol] 1.08 10*3/uL 0.83-4.51 [facility] Absolute neutrophil countOrd ered By: Breanne Ruiz on 08-06-2024 Neutrophils (Bld) [#/Vol] 7.0 10*3/uL 2.0-7.7 [facility] Anion gap in Serum or Plasma Ordered By: Breanne Ruiz on 08-06-2024 Anion gap [Moles/Vol] 13 mmol/L 5-[address] [facility] Automated lymphocyte count a s percentage of total leukocytesOrdered By: Breanne Ruiz on 08-06-2024 Lymphocytes/100 WBC Auto (Unsp spec) 11.0 % Low 19-41 [facility] BUN/creatinine ratioOrdered By: Breanne Ruiz on 08-06-2024 Urea nitrogen/Creatinine [Mass ratio] 27.6 mg/mg High 10-20 [facility] Basophil percentageOrdered B y: Breanne Ruiz on 08-06-2024 Basophils/100 WBC (Bld) 0.7 % 0-1 [facility] Bilirubin, totalOrdered By: Breanne Ruiz on 08-06-2024 Bilirubin [Mass/Vol] 0.21 mg/dL 0.00-1.30 [facility] Carbon dioxide, total [Moles /volume] in Central venous bloodOrdered By: Breanne Ruiz on 08-06-2024 CO2 [Moles/Vol] 22.7 mmol/L 21.0-32.0 [facility] Chloride assayOrdered By: Elio Ruiz on 08-06-2024 Chloride [Moles/Vol] 101 mmol/L 98-108 [facility] Eosinophil percentageOrdered By: Breanne Ruiz 08-06-2024 Eosinophils/100 WBC (Bld) 3.8 % 0-5 [facility] Erythrocyte distribution wid th (RBC) [Ratio]Ordered By: Breanne Ruiz on 08-06-2024 Erythrocyte distribution width (RBC) [Entitic vol] 46.3 fL High 35.1-43.9 [facility] Erythrocyte distribution wid th ratioOrdered By: Breanne Ruiz on 08-06-2024 Erythrocyte distribution width (RBC) [Ratio] 15.6 % High 11.6-14.6 [facility] Erythrocyte distribution wid th standard deviationOrdered By: Breanne Ruiz on 08-06-2024 Erythrocyte distribution width (RBC) [Ratio] 46.3 fl High 35.1-43.9 [facility] GFR/1.73 sq M.predicted cinda g non-blacks MDRD (S/P/Bld) [Vol rate/Area]Ordered By: Breanne Ruiz on 08-06-2024 Estimated GFR (MDRD) Non-Af Amer 66 >60 [facility] Comment on above: mL/min/1.73m2 CKD-EP I Creatinine Equation (2020) Glomerular filtration rate ( GFR) estimation/1.73 sq m using serum, plasma, or whole bOrdered By: Breanne Ruiz on 08-06-2024 GFR/1.73 sq M.predicted among non-blacks MDRD (S/P/Bld) [Vol rate/Area] 66 mL/min/{1.73_m2} >60 [facility] Comment on above: mL/min/1.73m2 CKD-EP I Creatinine Equation (2020) Hematocrit Auto (Bld) [Volum e fraction]Ordered By: Breanne Ruiz on 08-06-2024 Hematocrit (Bld) [Volume fraction] 41.6 % 37-47 [facility] Hemoglobin measurementOrdere d By: Breanne Ruiz on 08-06-2024 Hemoglobin (Bld) [Mass/Vol] 12.5 g/dL 12.0-15.0 [facility] Immature granulocytes/100 WB C Auto (Bld)Ordered By: Breanne Ruiz on 08-06-2024 Immature granulocytes/100 WBC (Bld) 1.000 % High 0.0-0.9 [facility] Comment on above: IG% - Immature Granu locytes (promyelocytes, myelocytes and metamyelocytes) > 1% indicates that a LEFT SHIFT is Present. Laboratory - Chemistry and C hemistry - challengeOrdered By: Breanne Ruiz on 08-06-2024 AST [Catalytic activity/Vol] 16 U/L <32 [facility] Lymphocytes Auto (Unsp spec) [#/Vol]Ordered By: Breanne Ruiz on 08-06-2024 Lymphocytes (Bld) [#/Vol] 1.08 10*3/uL 0.83-4.5 1 [facility] Lymphocytes/100 WBC Auto (Un sp spec)Ordered By: Breanne Ruiz on 08-06-2024 Lymphocytes/100 WBC (Bld) 11.0 % Low 19-41 [facility] MCV (mean corpuscular volume ) determinationOrdered By: Breanne Ruiz on 08-06-2024 MCV (RBC) [Entitic vol] 80.9 fL Low 81-99 [facility] Mean corpuscular hemoglobin (MCH) determinationOrdered By: Breanne Ruiz on 08-06-2024 MCH (RBC) [Entitic mass] 24.3 pg Low 27.0-32.0 [facility] Mean corpuscular hemoglobin concentration (MCHC) determinationOrdered By: Breanne Ruiz on 08-06-2024 MCHC (RBC) [Mass/Vol] 30.0 g/dL Low 32-[address] [facility] Mean platelet volume determi nationOrdered By: Breanne Ruiz on 08-06-2024 Platelet mean volume (Bld) [Entitic vol] 8.8 fL 6.2-12.0 [facility] Monocyte percentageOrdered B y: Breanne Ruiz on 08-06-2024 Monocytes/100 WBC (Bld) 12.5 % High 0-10 [facility] Neutrophil percentageOrdered By: Breanne Ruiz on 08-06-2024 Neutrophils/100 WBC (Bld) 71.0 % High 47-70 [facility] Nucleated red blood cell per centageOrdered By: Breanne Ruiz on 08-06-2024 Nucleated RBC/100 WBC (Bld) [Ratio] 0 % 0-5 [facility] Platelet countOrdered By: Elio Ruiz on 08-06-2024 Platelets (Bld) [#/Vol] 452 10*3/uL High 150-450 [facility] Potassium (Unsp spec) [Mass/ Vol]Ordered By: Breanne Ruiz on 08-06-2024 Potassium [Moles/Vol] 3.9 mmol/L 3.3-5.[address] [facility] Potassium measurement (mass/ volume)Ordered By: Breanne Ruiz on 08-06-2024 Potassium (Unsp spec) [Mass/Vol] 3.9 mmol/L 3.3-5.1 [facility] RBC Auto (Bld) [#/Vol]Ordere d By: Breanne Ruiz on 08-06-2024 RBC (Bld) [#/Vol] 5.14 10*6/uL 4.2-5.4 [facility] Serum creatinine measurement (mass/volume)Ordered By: Breanne Ruiz on 08-06-2024 Creatinine [Mass/Vol] 0.96 mg/dL 0.70-1.[address] [facility] Serum globulin measurementOr dered By: Breanne Ruiz on 08-06-2024 Globulin (S) [Mass/Vol] 3.8 g/dL 2.2-4.2 [facility] Serum glucose measurement (m ass/volume)Ordered By: Breanne Ruiz on 08-06-2024 Glucose [Mass/Vol] 188 mg/dL High 70-99 [facility] Serum or plasma alanine juárez otransferase (ALT) measurementOrdered By: Breanne Ruiz on 08-06-2024 ALT [Catalytic activity/Vol] 10 U/L <35 [facility] Serum or plasma albumin jj urement (mass/volume)Ordered By: Breanne Ruiz on 08-06-2024 Albumin [Mass/Vol] 3.3 g/dL Low 3.4-4.8 [facility] Serum or plasma albumin/glob ulin mass ratioOrdered By: Breanne uRiz on 08-06-2024 Albumin/Globulin [Mass ratio] 0.9 {ratio} 0.9-2.4 [facility] Serum or plasma alkaline sofi sphatase measurementOrdered By: Breanne Ruiz on 08-06-2024 ALP [Catalytic activity/Vol] 80 U/L 35-104 [facility] Serum or plasma calcium jj urement (mass/volume)Ordered By: Breanne Ruiz on 08-06-2024 Calcium [Mass/Vol] 10.1 mg/dL 7.6-11.0 [facility] Serum or plasma urea nitroge n measurement (mass/volume)Ordered By: Breanne Ruiz on 08-06-2024 Urea nitrogen [Mass/Vol] 26 mg/dL High 4-19 [facility] Sodium levelOrdered By: Abbie kaminskirabia Sara on 08-06-2024 Sodium [Moles/Vol] 137 mmol/L 133-145 [facility] Total proteinOrdered By: Prashant Ruiz on 08-06-2024 Protein [Mass/Vol] 7.1 g/dL 5.9-8.4 [facility] White blood cell (WBC) count Ordered By: Breanne Ruiz on 08-06-2024 WBC (Bld) [#/Vol] 9.8 10*3/uL 4.4-11.0 [facility] Bilirubin Test strip Ql (U)O rdered By: Breanne Ruiz on 08-05-2024 Bilirubin Ql (U) Negative Negative [facility] Epithelial cells.squamous LM Ql (Urine sed)Ordered By: Breanne Ruiz on 08-05-2024 Epithelial cells.squamous LM.HPF (Urine sed) [#/Area] 0 /[HPF] 5-10 [facility] Glucose Ql (U)Ordered By: Elio Ruiz on 08-05-2024 Glucose (U) [Mass/Vol] 50 mg/dL High Normal [facility] Ketones Test strip Ql (U)Ord ered By: Breanne Ruiz on 08-05-2024 Ketones Ql (U) Negative Negative [facility] Microscopic analysis of urin e for red blood cells (RBC)Ordered By: Breanne Ruiz on 08-05-2024 Microscopic analysis of urine for red blood cells (RBC) 0-5 SEEN /hpf 0-5 [facility] Urine RBC 0-5 SEEN /hpf 0-5 [facility] Mucus LM Ql (Urine sed)Order ed By: Breanne Ruiz on 08-05-2024 Mucus Ql (Urine sed) 0 SEEN /hpf [facility] Nitrite Test strip Ql (U)Ord ered By: Breanne Ruiz on 08-05-2024 Nitrite Ql (U) Negative Negative [facility] Protein Test strip Ql (U)Ord ered By: Breanne Ruiz on 08-05-2024 Protein Ql (U) 500 mg/dl High Negative [facility] Squamous epithelial cells de tection in urine sediment by light microscopyOrdered By: Breanne Ruiz on 08-05-2024 Epithelial cells.squamous LM Ql (Urine sed) 0-5 SEEN /hpf 5-10 [facility] Urine blood detectionOrdered By: Breanne Ruiz on 08-05-2024 Urine Occult Blood 250 /ul High Negative [facility] Urine clarityOrdered By: Prashant Ruiz on 08-05-2024 Clarity (U) Turbid Clear [facility] Urine color determinationOrd ered By: Breanne Ruiz on 08-05-2024 Color (U) Straw Yellow [facility] Urine cultureOrdered By: Prashant Ruiz on 08-05-2024 Bacteria identified Cx Nom (U) Alpha Hemolytic Streptococcus Abnormal [facility] Bacteria identified Cx Nom (U) Klebsiella pneumoniae sp pneum Abnormal [facility] Urine glucose detectionOrder ed By: Breanne Ruiz on 08-05-2024 Glucose Ql (U) 50 mg/dl High Normal [facility] Urine leukocyte esterase det ection by dipstickOrdered By: Breanne Ruiz on 08-05-2024 Leukocyte esterase Test strip Ql (U) 500 /ul High Negative [facility] Urine pHOrdered By: Bhupendra Ruiz on 08-05-2024 pH (U) 6.0 [pH] 5.0 - 8.0 [facility] Urine sediment bacteria coun t by microscopy (number/high power field)Ordered By: Breanne Ruiz on 08-05-2024 Bacteria LM.HPF (Urine sed) [#/Area] 3 /[HPF] None Seen [facility] Urine specific gravity measu rementOrdered By: Breanne Ruiz on 08-05-2024 Specific gravity (U) [Rel density] 1.020 1.002-1.030 [facility] Urine urobilinogen measureme ntOrdered By: Breanne Ruiz on 08-05-2024 Urobilinogen Ql (U) Normal mg/dl Normal [facility] Urobilinogen Ql (U)Ordered B y: Breanne Ruiz on 08-05-2024 Urine Urobilinogen Normal mg/dl Normal [facility] White blood cell countOrdere d By: Breanne Ruiz on 08-05-2024 Urine WBC >100 SEEN /hpf 0-5 [facility] White blood cell count >100 SEEN /hpf 0-5 [facility] High density lipoprotein (HD L) measurementOrdered By: Breanne Ruiz on 07-09-2024 Cholesterol in HDL [Mass/Vol] 38 mg/dL Low >40 [facility] Comment on above: The drugs N-Acetylcy steine and Metamizole may falsely depress this assay. Reference Range HDL <40 mg/dL Low HDL Cholesterol HDL >or= 60 mg/dL High HDL Cholesterol Low density lipoprotein (LDL ) cholesterol measurementOrdered By: Breanne Ruiz on 07-09-2024 Cholesterol in LDL [Mass/Vol] 41 mg/dL 0-130 [facility] Serum or plasma cholesterol measurement (mass/volume)Ordered By: Breanne Ruiz on 07-09-2024 Cholesterol [Mass/Vol] 143 mg/dL <200 [facility] Comment on above: <200 mg/dL Desirable 200-240 mg/dL Borderline >240 mg/dL High Risk Triglycerides measurementOrd ered By: Breanne Ruiz on 07-09-2024 Triglyceride [Mass/Vol] 321 mg/dL High <199 [facility] Comment on above: The drugs N-Acetylcy steine and Metamizole may falsely depress this assay.Serum Triglycerides Reference Interval Normal <150 mg/dL Borderline high 150 - 199 mg/dL High 200 - 499 mg/dL Very High > or = 500 mg/dL Very low density lipoprotein (VLDL) cholesterol measurementOrdered By: Breanne Ruiz on 07-09-2024 VLDL Cholesterol 64 mg/dL High 5-40 [facility] Hemoglobin A1c percentageOrd ered By: Breanne Ruiz on 06-11-2024 HbA1c (Bld) [Mass fraction] 7.2 % High 3.8-5.6 [facility] Comment on above: Normal < 5.7 % Predi abetic 5.7 - 6.4 % Diabetic >or= 6.5 % Please note range changes. Whole blood hemoglobin A1c/t otal hemoglobin ratio (mass fraction)Ordered By: Breanne Ruiz on 09-05-2023 HbA1c (Bld) [Mass fraction] 6.7 % 3.8-5.6 [facility] Comment on above: Normal < 5.7 % Predi abetic 5.7 - 6.4 % Diabetic >or= 6.5 % Please note range changes. Basophil percentageOrdered B y: Breanne Ruiz on 08-10-2023 Potassium [Moles/Vol] 4.0 mmol/L 3.5-5.[address] [facility] Comment on above: Slight Hemolysis, Re sult may be falsely increased. Absolute lymphocyte countOrd ered By: Breanne Ruiz on 08-08-2023 Lymphocytes Auto (Unsp spec) [#/Vol] 1.44 10*3/uL 0.83-4.51 [facility] Automated lymphocyte count a s percentage of total leukocytesOrdered By: Breanne Ruiz on 08-08-2023 Lymphocytes/100 WBC Auto (Unsp spec) 12.7 % 19-41 [facility] Basophil percentageOrdered B y: Eliokathrynchetan Sara on 08-08-2023 Basophils/100 WBC (Bld) 1.1 % 0-1 [facility] Bilirubin [Mass/Vol] 0.30 mg/dL 0.20-1.00 [facility] Comment on above: For patients on eltr ombopag therapy, use of Dimension [place] TBIL is not recommended. Chloride [Moles/Vol] 107 mmol/L 98-107 [facility] Eosinophils/100 WBC (Bld) 3.1 % 0-5 [facility] Glucose [Mass/Vol] 153 mg/dL 74-106 [facility] Comment on above: Fasting Glucose resu lt greater than or equal to 126 mg/dL suggests DIABETES MELLITUS per A.D.A. criteria. Hemoglobin (Bld) [Mass/Vol] 14.3 g/dL 12.0-15.0 [facility] Monocytes/100 WBC (Bld) 10.4 % 0-10 [facility] Neutrophils (Bld) [#/Vol] 8.1 10*3/uL 2.0-7.7 [facility] Neutrophils/100 WBC (Bld) 71.8 % 47-70 [facility] Potassium [Moles/Vol] 3.4 mmol/L 3.5-5.[address] [facility] Protein [Mass/Vol] 6.9 g/dL 6.4-8.2 [facility] Sodium [Moles/Vol] 141 mmol/L 136-145 [facility] WBC (Bld) [#/Vol] 11.3 10*3/uL 4.4-11.0 [facility] Determination of erythrocyte mean corpuscular volume (MCV)Ordered By: Breanne Ruiz on 08-08-2023 MCV (RBC) [Entitic vol] 88.6 fL 81-99 [facility] Erythrocyte distribution wid th ratioOrdered By: Breanne Ruiz on 08-08-2023 Erythrocyte distribution width (RBC) [Ratio] 14.8 % 11.6-14.6 [facility] Erythrocyte distribution wid th standard deviationOrdered By: Breanne Ruiz on 08-08-2023 Erythrocyte distribution width (RBC) [Entitic vol] 47.9 fL 35.1-43.9 [facility] Hematocrit Auto (Bld) [Volum e fraction]Ordered By: Breanne Ruiz on 08-08-2023 Hematocrit (Bld) [Volume fraction] 46.7 % 37-47 [facility] Immature granulocytes/100 WB C Auto (Bld)Ordered By: Breanne Ruiz on 08-08-2023 Immature granulocytes/100 WBC (Bld) 0.900 % 0.0-0.9 [facility] Comment on above: IG% - Immature Granu locytes (promyelocytes, myelocytes and metamyelocytes) > 1% indicates that a LEFT SHIFT is Present. Laboratory - Chemistry and C hemistry - challengeOrdered By: adalbertoquincychetan Ruiz on 08-08-2023 Albumin/Globulin [Mass ratio] 0.9 {ratio} 0.9-2.4 [facility] ALP [Catalytic activity/Vol] 93 U/L 45-117 [facility] ALT [Catalytic activity/Vol] 36 U/L 13-56 [facility] CO2 [Moles/Vol] 26.0 mmol/L 21.0-32.0 [facility] Globulin (S) [Mass/Vol] 3.7 g/dL 2.2-4.2 [facility] Urea nitrogen/Creatinine [Mass ratio] 28.0 mg/mg 10-20 [facility] Laboratory - Hematology and Cell countsOrdered By: Breanne Ruiz on 08-08-2023 MCH (RBC) [Entitic mass] 27.1 pg 27.0-32.0 [facility] MCHC (RBC) [Mass/Vol] 30.6 g/dL 32-[address] [facility] Nucleated RBC/100 WBC (Bld) [Ratio] 0 % 0-5 [facility] Platelet mean volume (Bld) [Entitic vol] 9.3 fL 6.2-12.0 [facility] Platelets (Bld) [#/Vol] 535 10*3/uL 150-450 [facility] No Panel InformationOrdered By: Breanne Ruiz on 08-08-2023 Estimated GFR (MDRD) Amer 105 mL/min >60 [facility] Comment on above: GFR Calc Estimated GFR (MDRD) Non-Af Amer 87 mL/min >60 [facility] Comment on above: Non- GFR Calc RBC Auto (Bld) [#/Vol]Ordere d By: Breanne Ruiz on 08-08-2023 RBC (Bld) [#/Vol] 5.27 10*6/uL 4.2-5.4 [facility] Serum or plasma calcium jj urement (mass/volume)Ordered By: Breanne Ruiz on 08-08-2023 Calcium [Mass/Vol] 10.0 mg/dL 8.5-10.1 [facility] Serum or plasma creatinine m easurement (mass/volume)Ordered By: Breanne Ruiz on 08-08-2023 Creatinine [Mass/Vol] 0.71 mg/dL 0.55-1.[address] [facility] Comment on above: The validity of the calculated GFR & GFRAA in patients over 70 years has not been determined. Clinical correlation is essential. Serum or plasma urea nitroge n measurement (mass/volume)Ordered By: Breanne Ruiz on 08-08-2023 Urea nitrogen [Mass/Vol] 20 mg/dL 7-18 [facility] Thin prep Papanicolaou smear with manual screeningOrdered By: Breanne Ruiz on 08-08-2023 Thin prep Papanicolaou smear with manual screening 3.2 g/dL 3.2-5.0 [facility] Thin prep Papanicolaou smear with manual screening 31 U/L 15-37 [facility] Thin prep Papanicolaou smear with manual screening 8 5-15 [facility] Basophil percentageOrdered B y: Breanne Ruiz on 07-17-2023 Chloride [Moles/Vol] 109 mmol/L 98-107 [facility] Glucose [Mass/Vol] 150 mg/dL 74-106 [facility] Comment on above: Fasting Glucose resu lt greater than or equal to 126 mg/dL suggests DIABETES MELLITUS per A.D.A. criteria. Potassium [Moles/Vol] 3.8 mmol/L 3.5-5.[address] [facility] Sodium [Moles/Vol] 143 mmol/L 136-145 [facility] Laboratory - Chemistry and C hemistry - challengeOrdered By: Breanne Ruiz on 07-17-2023 CO2 [Moles/Vol] 24.0 mmol/L 21.0-32.0 [facility] Urea nitrogen/Creatinine [Mass ratio] 31.3 mg/mg 10-20 [facility] No Panel InformationOrdered By: Breanne Ruiz on 07-17-2023 Estimated GFR (MDRD) Amer 114 mL/min >60 [facility] Comment on above: GFR Calc Estimated GFR (MDRD) Non-Af Amer 94 mL/min >60 [facility] Comment on above: Non- GFR Calc Serum or plasma calcium jj urement (mass/volume)Ordered By: Breanne Ruiz on 07-17-2023 Calcium [Mass/Vol] 9.6 mg/dL 8.5-10.1 [facility] Serum or plasma creatinine m easurement (mass/volume)Ordered By: Breanne Ruiz on 07-17-2023 Creatinine [Mass/Vol] 0.67 mg/dL 0.55-1.[address] [facility] Comment on above: The validity of the calculated GFR & GFRAA in patients over 70 years has not been determined. Clinical correlation is essential. Serum or plasma urea nitroge n measurement (mass/volume)Ordered By: Breanne Ruiz on 07-17-2023 Urea nitrogen [Mass/Vol] 21 mg/dL 7-18 [facility] Thin prep Papanicolaou smear with manual screeningOrdered By: Breanne Ruiz on 07-17-2023 Thin prep Papanicolaou smear with manual screening 10 5-15 [facility] Basophil percentageOrdered B y: Breanne Ruiz on 07-03-2023 Chloride [Moles/Vol] 109 mmol/L 98-107 [facility] Glucose [Mass/Vol] 156 mg/dL 74-106 [facility] Comment on above: Fasting Glucose resu lt greater than or equal to 126 mg/dL suggests DIABETES MELLITUS per A.D.A. criteria. Potassium [Moles/Vol] 3.5 mmol/L 3.5-5.[address] [facility] Comment on above: Slight Hemolysis, Re sult may be falsely increased. Sodium [Moles/Vol] 141 mmol/L 136-145 [facility] Laboratory - Chemistry and C hemistry - challengeOrdered By: Breanne Ruiz on 07-03-2023 CO2 [Moles/Vol] 25.0 mmol/L 21.0-32.0 [facility] Urea nitrogen/Creatinine [Mass ratio] 29.4 mg/mg 10-20 [facility] No Panel InformationOrdered By: Breanne Ruiz on 07-03-2023 Estimated GFR (MDRD) Amer 111 mL/min >60 [facility] Comment on above: GFR Calc Estimated GFR (MDRD) Non-Af Amer 92 mL/min >60 [facility] Comment on above: Non- GFR Calc Serum or plasma calcium jj urement (mass/volume)Ordered By: Breanne Ruiz on 07-03-2023 Calcium [Mass/Vol] 9.8 mg/dL 8.5-10.1 [facility] Serum or plasma creatinine m easurement (mass/volume)Ordered By: Breanne Ruiz on 07-03-2023 Creatinine [Mass/Vol] 0.68 mg/dL 0.55-1.[address] [facility] Comment on above: The validity of the calculated GFR & GFRAA in patients over 70 years has not been determined. Clinical correlation is essential. Serum or plasma urea nitroge n measurement (mass/volume)Ordered By: Breanne Ruiz on 07-03-2023 Urea nitrogen [Mass/Vol] 20 mg/dL 7-18 [facility] Thin prep Papanicolaou smear with manual screeningOrdered By: Breanne Ruiz on 07-03-2023 Thin prep Papanicolaou smear with manual screening 7 5-15 [facility] Whole blood hemoglobin A1c/t otal hemoglobin ratio (mass fraction)Ordered By: Breanne Ruiz on 06-06-2023 HbA1c (Bld) [Mass fraction] 7.5 % 3.8-5.6 [facility] Comment on above: Normal < 5.7 % Predi abetic 5.7 - 6.4 % Diabetic >or= 6.5 % Please note range changes. Absolute lymphocyte countOrd ered By: Breanne Ruiz on 05-09-2023 Lymphocytes Auto (Unsp spec) [#/Vol] 1.09 10*3/uL 0.83-4.51 [facility] Basophil percentageOrdered B y: Breanne Ruiz on 05-09-2023 Basophils/100 WBC (Bld) 1.2 % 0-1 [facility] Bilirubin [Mass/Vol] 0.30 mg/dL 0.20-1.00 [facility] Comment on above: For patients on eltr ombopag therapy, use of Dimension [place] TBIL is not recommended. Chloride [Moles/Vol] 107 mmol/L 98-107 [facility] Eosinophils/100 WBC (Bld) 2.8 % 0-5 [facility] Glucose [Mass/Vol] 203 mg/dL 74-106 [facility] Comment on above: Glucose result great er than or equal to 200 mg/dLsuggests DIABETES MELLITUS per A.D.A. criteria. Neutrophils (Bld) [#/Vol] 5.5 10*3/uL 2.0-7.7 [facility] Neutrophils/100 WBC (Bld) 68.1 % 47-70 [facility] Potassium [Moles/Vol] 4.0 mmol/L 3.5-5.[address] [facility] Protein [Mass/Vol] 7.0 g/dL 6.4-8.2 [facility] Sodium [Moles/Vol] 140 mmol/L 136-145 [facility] WBC (Bld) [#/Vol] 8.1 10*3/uL 4.4-11.0 [facility] Blood erythrocytes count (nu mber/volume)Ordered By: Breanne Ruiz on 05-09-2023 RBC (Bld) [#/Vol] 5.62 10*6/uL 4.2-5.4 [facility] Blood hemoglobin measurement (mass/volume)Ordered By: Breanne Ruiz on 05-09-2023 Hemoglobin (Bld) [Mass/Vol] 14.7 g/dL 12.0-15.0 [facility] Blood lymphocytes/100 leukoc ytesOrdered By: Breanne Ruiz on 05-09-2023 Lymphocytes/100 WBC (Bld) 13.4 % 19-41 [facility] Blood monocytes/100 leukocyt esOrdered By: vannessa Ruiz on 05-09-2023 Monocytes/100 WBC (Bld) 13.8 % 0-10 [facility] Blood platelet mean volumeOr dered By: Breanne Ruiz on 05-09-2023 Platelet mean volume (Bld) [Entitic vol] 9.6 fL 6.2-12.0 [facility] Determination of erythrocyte mean corpuscular volume (MCV)Ordered By: Breanne Ruiz on 05-09-2023 MCV (RBC) [Entitic vol] 88.1 fL 81-99 [facility] Hematocrit Auto (Bld) [Volum e fraction]Ordered By: Breanne Ruiz on 05-09-2023 Hematocrit (Bld) [Volume fraction] 49.5 % 37-47 [facility] - Chemistry and C hemistry - challengeOrdered By: vannessa Ruiz on 05-09-2023 ALP [Catalytic activity/Vol] 111 U/L 45-117 [facility] ALT [Catalytic activity/Vol] 57 U/L 13-56 [facility] CO2 [Moles/Vol] 25.0 mmol/L 21.0-32.0 [facility] Globulin (S) [Mass/Vol] 3.7 g/dL 2.2-4.2 [facility] Urea nitrogen/Creatinine [Mass ratio] 38.0 mg/mg 10-20 [facility] - Hematology and Cell countsOrdered By: Breanne Ruiz on 05-09-2023 Erythrocyte distribution width (RBC) [Entitic vol] 49.4 fL 35.1-43.9 [facility] Erythrocyte distribution width (RBC) [Ratio] 15.6 % 11.6-14.6 [facility] Immature granulocytes/100 WBC (Bld) 0.700 % 0.0-0.9 [facility] Comment on above: IG% - Immature Granu locytes (promyelocytes, myelocytes and metamyelocytes) > 1% indicates that a LEFT SHIFT is Present. MCH (RBC) [Entitic mass] 26.2 pg 27.0-32.0 [facility] Nucleated RBC/100 WBC (Bld) [Ratio] 0 % 0-5 [facility] MCHC Auto (RBC) [Mass/Vol]Or dered By: Breanne Ruiz on 05-09-2023 MCHC (RBC) [Mass/Vol] 29.7 g/dL 32-[address] [facility] No Panel InformationOrdered By: Breanne Ruiz on 05-09-2023 Estimated GFR (MDRD) Amer 111 mL/min >60 [facility] Comment on above: GFR Calc Estimated GFR (MDRD) Non-Af Amer 92 mL/min >60 [facility] Comment on above: Non- GFR Calc Platelets bldOrdered By: Prashant Ruiz on 05-09-2023 Platelets (Bld) [#/Vol] 553 10*3/uL 150-450 [facility] Serum or plasma albumin jj urement (mass/volume)Ordered By: Breanne Ruiz on 05-09-2023 Albumin [Mass/Vol] 3.3 g/dL 3.2-5.0 [facility] Serum or plasma albumin/glob ulin mass ratioOrdered By: Breanne Ruiz on 05-09-2023 Albumin/Globulin [Mass ratio] 0.9 {ratio} 0.9-2.4 [facility] Serum or plasma calcium jj urement (mass/volume)Ordered By: Breanne Ruiz on 05-09-2023 Calcium [Mass/Vol] 9.6 mg/dL 8.5-10.1 [facility] Serum or plasma creatinine m easurement (mass/volume)Ordered By: Breanne Ruiz on 05-09-2023 Creatinine [Mass/Vol] 0.68 mg/dL 0.55-1.[address] [facility] Comment on above: The validity of the calculated GFR & GFRAA in patients over 70 years has not been determined. Clinical correlation is essential. Serum or plasma urea nitroge n measurement (mass/volume)Ordered By: Breanne Ruiz on 05-09-2023 Urea nitrogen [Mass/Vol] 26 mg/dL 7-18 [facility] Thin prep Papanicolaou smear with manual screeningOrdered By: Breanne Ruiz on 05-09-2023 Thin prep Papanicolaou smear with manual screening 37 U/L 15-37 [facility] Thin prep Papanicolaou smear with manual screening 8 5-15 [facility] Clostridium difficile detect ion by polymerase chain reactionOrdered By: Breanne Ruiz on 02-23-2023 C. difficile DNA MAGALIE+probe Ql (Unsp spec) [facility] Clostridium difficile detect ion by polymerase chain reactionOrdered By: Breanne Ruiz on 02-22-2023 C. difficile DNA MAGALIE+probe Ql (Unsp spec) [facility] Absolute lymphocyte countOrd ered By: Britney Worthington on 02-21-2023 Lymphocytes Auto (Unsp spec) [#/Vol] 0.97 10*3/uL 0.83-4.51 [facility] Basophil percentageOrdered B y: Britney Worthington on 02-21-2023 Basophils/100 WBC (Bld) 1.2 % 0-1 [facility] Chloride [Moles/Vol] 108 mmol/L 98-107 [facility] Eosinophils/100 WBC (Bld) 4.4 % 0-5 [facility] Glucose [Mass/Vol] 178 mg/dL 74-106 [facility] Comment on above: Fasting Glucose resu lt greater than or equal to 126 mg/dL suggests DIABETES MELLITUS per A.D.A. criteria. Neutrophils (Bld) [#/Vol] 8.1 10*3/uL 2.0-7.7 [facility] Neutrophils/100 WBC (Bld) 74.9 % 47-70 [facility] Potassium [Moles/Vol] 3.7 mmol/L 3.5-5.[address] [facility] Sodium [Moles/Vol] 140 mmol/L 136-145 [facility] WBC (Bld) [#/Vol] 10.8 10*3/uL 4.4-11.0 [facility] Blood erythrocytes count (nu mber/volume)Ordered By: Britney Worthington on 02-21-2023 RBC (Bld) [#/Vol] 5.06 10*6/uL 4.2-5.4 [facility] Blood hemoglobin measurement (mass/volume)Ordered By: Britney Worthington on 02-21-2023 Hemoglobin (Bld) [Mass/Vol] 13.3 g/dL 12.0-15.0 [facility] Blood lymphocytes/100 leukoc ytesOrdered By: Britney Worthington on 02-21-2023 Lymphocytes/100 WBC (Bld) 9.0 % 19-41 [facility] Blood monocytes/100 leukocyt esOrdered By: Britney Worthington on 02-21-2023 Monocytes/100 WBC (Bld) 9.8 % 0-10 [facility] Blood platelet mean volumeOr dered By: Britney Worthington on 02-21-2023 Platelet mean volume (Bld) [Entitic vol] 9.2 fL 6.2-12.0 [facility] Determination of erythrocyte mean corpuscular volume (MCV)Ordered By: Britney Worthington on 02-21-2023 MCV (RBC) [Entitic vol] 89.5 fL 81-99 [facility] Hematocrit Auto (Bld) [Volum e fraction]Ordered By: Britney Worthington on 02-21-2023 Hematocrit (Bld) [Volume fraction] 45.3 % 37-47 [facility] - Chemistry and C hemistry - challengeOrdered By: Britney Worthington on 02-21-2023 CO2 [Moles/Vol] 24.0 mmol/L 21.0-32.0 [facility] Urea nitrogen/Creatinine [Mass ratio] 37.7 mg/mg 10-20 [facility] - Hematology and Cell countsOrdered By: Britney Worthington on 02-21-2023 Erythrocyte distribution width (RBC) [Entitic vol] 47.6 fL 35.1-43.9 [facility] Erythrocyte distribution width (RBC) [Ratio] 14.5 % 11.6-14.6 [facility] Immature granulocytes/100 WBC (Bld) 0.700 % 0.0-0.9 [facility] Comment on above: IG% - Immature Granu locytes (promyelocytes, myelocytes and metamyelocytes) > 1% indicates that a LEFT SHIFT is Present. MCH (RBC) [Entitic mass] 26.3 pg 27.0-32.0 [facility] Nucleated RBC/100 WBC (Bld) [Ratio] 0 % 0-5 [facility] MCHC Auto (RBC) [Mass/Vol]Or dered By: Britney Worthington on 02-21-2023 MCHC (RBC) [Mass/Vol] 29.4 g/dL 32-[address] [facility] No Panel InformationOrdered By: Britney Worthington on 02-21-2023 Estimated GFR (MDRD) Amer 105 mL/min >60 [facility] Comment on above: GFR Calc Estimated GFR (MDRD) Non-Af Amer 87 mL/min >60 [facility] Comment on above: Non- GFR Calc Platelets bldOrdered By: Phillip Worthington on 02-21-2023 Platelets (Bld) [#/Vol] 500 10*3/uL 150-450 [facility] Serum or plasma calcium jj urement (mass/volume)Ordered By: Britney Worthington on 02-21-2023 Calcium [Mass/Vol] 9.1 mg/dL 8.5-10.1 [facility] Serum or plasma creatinine m easurement (mass/volume)Ordered By: Britney Worthington on 02-21-2023 Creatinine [Mass/Vol] 0.72 mg/dL 0.55-1.[address] [facility] Comment on above: The validity of the calculated GFR & GFRAA in patients over 70 years has not been determined. Clinical correlation is essential. Serum or plasma urea nitroge n measurement (mass/volume)Ordered By: Britney Worthington on 02-21-2023 Urea nitrogen [Mass/Vol] 27 mg/dL 7-18 [facility] Thin prep Papanicolaou smear with manual screeningOrdered By: Britney Worthington on 02-21-2023 Thin prep Papanicolaou smear with manual screening 8 5-15 [facility] Bilirubin Test strip Ql (U)O rdered By: Breanne Ruiz on 02-13-2023 Bilirubin Ql (U) Negative Negative [facility] Culture, urineOrdered By: Elio Ruiz on 02-13-2023 Bacteria identified Cx Nom (U) Escherichia coli [facility] Ketones Test strip Ql (U)Ord ered By: Breanne Ruiz on 02-13-2023 Ketones Ql (U) 5 mg/dl Negative [facility] Nitrite Test strip Ql (U)Ord ered By: Breanne Ruiz on 02-13-2023 Nitrite Ql (U) Positive Negative [facility] Protein Test strip Ql (U)Ord ered By: Breanne Ruiz on 02-13-2023 Protein Ql (U) 30 mg/dl Negative [facility] Urine blood detectionOrdered By: Breanne Ruiz on 02-13-2023 RBC Ql (U) 250 /ul Negative [facility] Urine clarityOrdered By: Prashant Ruiz on 02-13-2023 Clarity (U) Cloudy Clear [facility] Urine color determinationOrd ered By: Breanne Ruiz on 02-13-2023 Color (U) Brown Yellow [facility] Urine glucose detectionOrder ed By: Breanne Ruiz on 02-13-2023 Glucose Ql (U) Normal mg/dl Normal [facility] Urine leukocyte esterase det ection by dipstickOrdered By: Breanne Ruiz on 02-13-2023 Leukocyte esterase Test strip Ql (U) 25 /ul Negative [facility] Urine pHOrdered By: Bhupendra Ruiz on 02-13-2023 pH (U) 5.0 [pH] 5.0 - 8.0 [facility] Urine specific gravity measu rementOrdered By: Breanne Ruiz on 02-13-2023 Specific gravity (U) [Rel density] 1.025 1.002-1.030 [facility] Urobilinogen Auto test strip Ql (U)Ordered By: Breanne Ruiz on 02-13-2023 Urobilinogen Ql (U) 1 mg/dl Normal [facility] Absolute lymphocyte countOrd ered By: Breanne Ruiz on 02-07-2023 Lymphocytes Auto (Unsp spec) [#/Vol] 0.94 10*3/uL 0.83-4.51 [facility] Basophil percentageOrdered B y: Breanne Ruiz on 02-07-2023 Basophils/100 WBC (Bld) 1.1 % 0-1 [facility] Chloride [Moles/Vol] 110 mmol/L 98-107 [facility] Eosinophils/100 WBC (Bld) 5.5 % 0-5 [facility] Glucose [Mass/Vol] 160 mg/dL 74-106 [facility] Comment on above: Fasting Glucose resu lt greater than or equal to 126 mg/dL suggests DIABETES MELLITUS per A.D.A. criteria. Neutrophils (Bld) [#/Vol] 6.3 10*3/uL 2.0-7.7 [facility] Neutrophils/100 WBC (Bld) 70.8 % 47-70 [facility] Potassium [Moles/Vol] 3.9 mmol/L 3.5-5.[address] [facility] Sodium [Moles/Vol] 141 mmol/L 136-145 [facility] WBC (Bld) [#/Vol] 9.0 10*3/uL 4.4-11.0 [facility] Blood erythrocytes count (nu mber/volume)Ordered By: Breanne Ruiz on 02-07-2023 RBC (Bld) [#/Vol] 4.98 10*6/uL 4.2-5.4 [facility] Blood hemoglobin measurement (mass/volume)Ordered By: Breanne Ruiz on 02-07-2023 Hemoglobin (Bld) [Mass/Vol] 13.3 g/dL 12.0-15.0 [facility] Blood lymphocytes/100 leukoc ytesOrdered By: Breanne Ruiz on 02-07-2023 Lymphocytes/100 WBC (Bld) 10.5 % 19-41 [facility] Blood monocytes/100 leukocyt esOrdered By: Breanne Ruiz on 02-07-2023 Monocytes/100 WBC (Bld) 11.1 % 0-10 [facility] Blood platelet mean volumeOr dered By: Breanne Ruiz on 02-07-2023 Platelet mean volume (Bld) [Entitic vol] 9.0 fL 6.2-12.0 [facility] Determination of erythrocyte mean corpuscular volume (MCV)Ordered By: Breanne Ruiz on 02-07-2023 MCV (RBC) [Entitic vol] 88.8 fL 81-99 [facility] Hematocrit Auto (Bld) [Volum e fraction]Ordered By: Breanne Ruiz on 02-07-2023 Hematocrit (Bld) [Volume fraction] 44.2 % 37-47 [facility] - Chemistry and C hemistry - challengeOrdered By: Breanne Ruiz on 02-07-2023 CO2 [Moles/Vol] 24.0 mmol/L 21.0-32.0 [facility] Urea nitrogen/Creatinine [Mass ratio] 37.3 mg/mg 10-20 [facility] - Hematology and Cell countsOrdered By: Breanne Ruiz on 02-07-2023 Erythrocyte distribution width (RBC) [Entitic vol] 47.9 fL 35.1-43.9 [facility] Erythrocyte distribution width (RBC) [Ratio] 14.6 % 11.6-14.6 [facility] Immature granulocytes/100 WBC (Bld) 1.000 % 0.0-0.9 [facility] Comment on above: IG% - Immature Granu locytes (promyelocytes, myelocytes and metamyelocytes) > 1% indicates that a LEFT SHIFT is Present. MCH (RBC) [Entitic mass] 26.7 pg 27.0-32.0 [facility] Nucleated RBC/100 WBC (Bld) [Ratio] 0 % 0-5 [facility] MCHC Auto (RBC) [Mass/Vol]Or dered By: Breanne Ruiz on 02-07-2023 MCHC (RBC) [Mass/Vol] 30.1 g/dL 32-[address] [facility] No Panel InformationOrdered By: Breanne Ruiz on 02-07-2023 Estimated GFR (MDRD) Amer 132 mL/min >60 [facility] Comment on above: GFR Calc Estimated GFR (MDRD) Non-Af Amer 109 mL/min >60 [facility] Comment on above: Non- GFR Calc Platelets bldOrdered By: Prashant Ruiz on 02-07-2023 Platelets (Bld) [#/Vol] 478 10*3/uL 150-450 [facility] Serum or plasma calcium jj urement (mass/volume)Ordered By: Breanne Ruiz on 02-07-2023 Calcium [Mass/Vol] 8.9 mg/dL 8.5-10.1 [facility] Serum or plasma creatinine m easurement (mass/volume)Ordered By: Breanne Ruiz on 02-07-2023 Creatinine [Mass/Vol] 0.59 mg/dL 0.55-1.[address] [facility] Comment on above: The validity of the calculated GFR & GFRAA in patients over 70 years has not been determined. Clinical correlation is essential. Serum or plasma urea nitroge n measurement (mass/volume)Ordered By: Breanne Ruiz on 02-07-2023 Urea nitrogen [Mass/Vol] 22 mg/dL 7-18 [facility] Thin prep Papanicolaou smear with manual screeningOrdered By: [facility] Ruiz on 02-07-2023 Thin prep Papanicolaou smear with manual screening 7 5-15 [facility] Absolute lymphocyte countOrd ered By: Britney Worthington on 01-24-2023 Lymphocytes Auto (Unsp spec) [#/Vol] 0.89 10*3/uL 0.83-4.51 [facility] Basophil percentageOrdered B y: Britney Worthington on 01-24-2023 Basophils/100 WBC (Bld) 1.1 % 0-1 [facility] Chloride [Moles/Vol] 108 mmol/L 98-107 [facility] Eosinophils/100 WBC (Bld) 5.0 % 0-5 [facility] Glucose [Mass/Vol] 141 mg/dL 74-106 [facility] Comment on above: Fasting Glucose resu lt greater than or equal to 126 mg/dL suggests DIABETES MELLITUS per A.D.A. criteria. Neutrophils (Bld) [#/Vol] 5.9 10*3/uL 2.0-7.7 [facility] Neutrophils/100 WBC (Bld) 71.4 % 47-70 [facility] Potassium [Moles/Vol] 3.9 mmol/L 3.5-5.[address] [facility] Sodium [Moles/Vol] 140 mmol/L 136-145 [facility] WBC (Bld) [#/Vol] 8.2 10*3/uL 4.4-11.0 [facility] Blood erythrocytes count (nu mber/volume)Ordered By: Britney Worthington on 01-24-2023 RBC (Bld) [#/Vol] 4.81 10*6/uL 4.2-5.4 [facility] Blood hemoglobin measurement (mass/volume)Ordered By: Britney Worthington on 01-24-2023 Hemoglobin (Bld) [Mass/Vol] 12.8 g/dL 12.0-15.0 [facility] Blood lymphocytes/100 leukoc ytesOrdered By: Britney Worthington on 01-24-2023 Lymphocytes/100 WBC (Bld) 10.9 % 19-41 [facility] Blood monocytes/100 leukocyt esOrdered By: Britney Worthington on 01-24-2023 Monocytes/100 WBC (Bld) 11.0 % 0-10 [facility] Blood platelet mean volumeOr dered By: Britney Worthington on 01-24-2023 Platelet mean volume (Bld) [Entitic vol] 9.0 fL 6.2-12.0 [facility] Determination of erythrocyte mean corpuscular volume (MCV)Ordered By: Britney Worthington on 01-24-2023 MCV (RBC) [Entitic vol] 88.8 fL 81-99 [facility] Hematocrit Auto (Bld) [Volum e fraction]Ordered By: Briteny Worthington on 01-24-2023 Hematocrit (Bld) [Volume fraction] 42.7 % 37-47 [facility] - Chemistry and C hemistry - challengeOrdered By: Britney Worthington on 01-24-2023 CO2 [Moles/Vol] 25.0 mmol/L 21.0-32.0 [facility] Urea nitrogen/Creatinine [Mass ratio] 33.7 mg/mg 10-20 [facility] - Hematology and Cell countsOrdered By: Britney Worthington on 01-24-2023 Erythrocyte distribution width (RBC) [Entitic vol] 48.3 fL 35.1-43.9 [facility] Erythrocyte distribution width (RBC) [Ratio] 14.8 % 11.6-14.6 [facility] Immature granulocytes/100 WBC (Bld) 0.600 % 0.0-0.9 [facility] Comment on above: IG% - Immature Granu locytes (promyelocytes, myelocytes and metamyelocytes) > 1% indicates that a LEFT SHIFT is Present. MCH (RBC) [Entitic mass] 26.6 pg 27.0-32.0 [facility] Nucleated RBC/100 WBC (Bld) [Ratio] 0 % 0-5 [facility] MCHC Auto (RBC) [Mass/Vol]Or dered By: Britney Worthington on 01-24-2023 MCHC (RBC) [Mass/Vol] 30.0 g/dL 32-[address] [facility] No Panel InformationOrdered By: Britney Worthington on 01-24-2023 Estimated GFR (MDRD) Amer 131 mL/min >60 [facility] Comment on above: GFR Calc Estimated GFR (MDRD) Non-Af Amer 108 mL/min >60 [facility] Comment on above: Non- GFR Calc Platelets bldOrdered By: Phillip Worthington on 01-24-2023 Platelets (Bld) [#/Vol] 479 10*3/uL 150-450 [facility] Serum or plasma calcium jj urement (mass/volume)Ordered By: Britney Worthington on 01-24-2023 Calcium [Mass/Vol] 8.9 mg/dL 8.5-10.1 [facility] Serum or plasma creatinine m easurement (mass/volume)Ordered By: Britney Worthington on 01-24-2023 Creatinine [Mass/Vol] 0.59 mg/dL 0.55-1.[address] [facility] Comment on above: The validity of the calculated GFR & GFRAA in patients over 70 years has not been determined. Clinical correlation is essential. Serum or plasma urea nitroge n measurement (mass/volume)Ordered By: Britney Worthington on 01-24-2023 Urea nitrogen [Mass/Vol] 20 mg/dL 7-18 [facility] Thin prep Papanicolaou smear with manual screeningOrdered By: Britney Worthington on 01-24-2023 Thin prep Papanicolaou smear with manual screening 7 5-15 [facility] Absolute lymphocyte countOrd ered By: Breanne Ruiz on 01-10-2023 Lymphocytes Auto (Unsp spec) [#/Vol] 0.84 10*3/uL 0.83-4.51 [facility] Basophil percentageOrdered B y: Breanne Ruiz on 01-10-2023 Basophils/100 WBC (Bld) 1.0 % 0-1 [facility] Chloride [Moles/Vol] 109 mmol/L 98-107 [facility] Eosinophils/100 WBC (Bld) 4.6 % 0-5 [facility] Glucose [Mass/Vol] 147 mg/dL 74-106 [facility] Comment on above: Fasting Glucose resu lt greater than or equal to 126 mg/dL suggests DIABETES MELLITUS per A.D.A. criteria. Neutrophils (Bld) [#/Vol] 7.2 10*3/uL 2.0-7.7 [facility] Neutrophils/100 WBC (Bld) 74.5 % 47-70 [facility] Potassium [Moles/Vol] 3.9 mmol/L 3.5-5.[address] [facility] Sodium [Moles/Vol] 140 mmol/L 136-145 [facility] WBC (Bld) [#/Vol] 9.7 10*3/uL 4.4-11.0 [facility] Blood erythrocytes count (nu mber/volume)Ordered By: Breanne Ruiz on 01-10-2023 RBC (Bld) [#/Vol] 4.98 10*6/uL 4.2-5.4 [facility] Blood hemoglobin measurement (mass/volume)Ordered By: Breanne Ruiz on 01-10-2023 Hemoglobin (Bld) [Mass/Vol] 13.4 g/dL 12.0-15.0 [facility] Blood lymphocytes/100 leukoc ytesOrdered By: Breanne Ruiz on 01-10-2023 Lymphocytes/100 WBC (Bld) 8.7 % 19-41 [facility] Blood monocytes/100 leukocyt esOrdered By: Breanne Ruiz on 01-10-2023 Monocytes/100 WBC (Bld) 10.3 % 0-10 [facility] Blood platelet mean volumeOr dered By: Breanne Ruiz on 01-10-2023 Platelet mean volume (Bld) [Entitic vol] 8.8 fL 6.2-12.0 [facility] Determination of erythrocyte mean corpuscular volume (MCV)Ordered By: Breanne Ruiz on 01-10-2023 MCV (RBC) [Entitic vol] 86.5 fL 81-99 [facility] Hematocrit Auto (Bld) [Volum e fraction]Ordered By: Breanne Ruiz on 01-10-2023 Hematocrit (Bld) [Volume fraction] 43.1 % 37-47 [facility] - Chemistry and C hemistry - challengeOrdered By: adalbertoquincychetan Ruiz on 01-10-2023 CO2 [Moles/Vol] 24.0 mmol/L 21.0-32.0 [facility] Urea nitrogen/Creatinine [Mass ratio] 36.1 mg/mg 10-20 [facility] - Hematology and Cell countsOrdered By: Abbiequincychetan Ruiz on 01-10-2023 Erythrocyte distribution width (RBC) [Entitic vol] 48.4 fL 35.1-43.9 [facility] Erythrocyte distribution width (RBC) [Ratio] 15.3 % 11.6-14.6 [facility] Immature granulocytes/100 WBC (Bld) 0.900 % 0.0-0.9 [facility] Comment on above: IG% - Immature Granu locytes (promyelocytes, myelocytes and metamyelocytes) > 1% indicates that a LEFT SHIFT is Present. MCH (RBC) [Entitic mass] 26.9 pg 27.0-32.0 [facility] Nucleated RBC/100 WBC (Bld) [Ratio] 0 % 0-5 [facility] MCHC Auto (RBC) [Mass/Vol]Or dered By: Breanne Ruiz on 01-10-2023 MCHC (RBC) [Mass/Vol] 31.1 g/dL 32-[address] [facility] No Panel InformationOrdered By: Breanne Ruiz on 01-10-2023 Estimated GFR (MDRD) Amer 121 mL/min >60 [facility] Comment on above: GFR Calc Estimated GFR (MDRD) Non-Af Amer 100 mL/min >60 [facility] Comment on above: Non- GFR Calc Platelets bldOrdered By: Prashant raphaelchetan Ruiz on 01-10-2023 Platelets (Bld) [#/Vol] 513 10*3/uL 150-450 [facility] Serum or plasma calcium jj urement (mass/volume)Ordered By: Breanne Ruiz on 01-10-2023 Calcium [Mass/Vol] 9.2 mg/dL 8.5-10.1 [facility] Serum or plasma creatinine m easurement (mass/volume)Ordered By: Breanne Ruiz on 01-10-2023 Creatinine [Mass/Vol] 0.64 mg/dL 0.55-1.[address] [facility] Comment on above: The validity of the calculated GFR & GFRAA in patients over 70 years has not been determined. Clinical correlation is essential. Serum or plasma urea nitroge n measurement (mass/volume)Ordered By: Breanne Ruiz on 01-10-2023 Urea nitrogen [Mass/Vol] 23 mg/dL 7-18 [facility] Thin prep Papanicolaou smear with manual screeningOrdered By: Breanne Ruiz on 01-10-2023 Thin prep Papanicolaou smear with manual screening 7 5-15 [facility] Absolute lymphocyte countOrd ered By: Breanne Ruiz on 12-27-2022 Lymphocytes Auto (Unsp spec) [#/Vol] 0.84 10*3/uL 0.83-4.51 [facility] Basophil percentageOrdered B y: Breanne Ruiz on 12-27-2022 Basophils/100 WBC (Bld) 1.3 % 0-1 [facility] Chloride [Moles/Vol] 108 mmol/L 98-107 [facility] Eosinophils/100 WBC (Bld) 4.3 % 0-5 [facility] Glucose [Mass/Vol] 178 mg/dL 74-106 [facility] Comment on above: Fasting Glucose resu lt greater than or equal to 126 mg/dL suggests DIABETES MELLITUS per A.D.A. criteria. Neutrophils (Bld) [#/Vol] 6.8 10*3/uL 2.0-7.7 [facility] Neutrophils/100 WBC (Bld) 73.8 % 47-70 [facility] Potassium [Moles/Vol] 3.9 mmol/L 3.5-5.[address] [facility] Sodium [Moles/Vol] 138 mmol/L 136-145 [facility] WBC (Bld) [#/Vol] 9.3 10*3/uL 4.4-11.0 [facility] Blood erythrocytes count (nu mber/volume)Ordered By: Breanne Ruiz on 12-27-2022 RBC (Bld) [#/Vol] 4.96 10*6/uL 4.2-5.4 [facility] Blood hemoglobin measurement (mass/volume)Ordered By: Breanne Ruiz on 12-27-2022 Hemoglobin (Bld) [Mass/Vol] 13.1 g/dL 12.0-15.0 [facility] Blood lymphocytes/100 leukoc ytesOrdered By: Breanne Ruiz on 12-27-2022 Lymphocytes/100 WBC (Bld) 9.1 % 19-41 [facility] Blood monocytes/100 leukocyt esOrdered By: Breanne Ruiz on 12-27-2022 Monocytes/100 WBC (Bld) 10.9 % 0-10 [facility] Blood platelet mean volumeOr dered By: Breanne Ruiz on 12-27-2022 Platelet mean volume (Bld) [Entitic vol] 8.9 fL 6.2-12.0 [facility] Determination of erythrocyte mean corpuscular volume (MCV)Ordered By: Breanne Ruiz on 12-27-2022 MCV (RBC) [Entitic vol] 88.9 fL 81-99 [facility] Hematocrit Auto (Bld) [Volum e fraction]Ordered By: Breanne Ruiz on 12-27-2022 Hematocrit (Bld) [Volume fraction] 44.1 % 37-47 [facility] - Chemistry and C hemistry - challengeOrdered By: Breanne Ruiz on 12-27-2022 CO2 [Moles/Vol] 24.0 mmol/L 21.0-32.0 [facility] Urea nitrogen/Creatinine [Mass ratio] 32.3 mg/mg 10-20 [facility] - Hematology and Cell countsOrdered By: Breanne Ruiz on 12-27-2022 Erythrocyte distribution width (RBC) [Entitic vol] 50.8 fL 35.1-43.9 [facility] Erythrocyte distribution width (RBC) [Ratio] 15.7 % 11.6-14.6 [facility] Immature granulocytes/100 WBC (Bld) 0.600 % 0.0-0.9 [facility] Comment on above: IG% - Immature Granu locytes (promyelocytes, myelocytes and metamyelocytes) > 1% indicates that a LEFT SHIFT is Present. MCH (RBC) [Entitic mass] 26.4 pg 27.0-32.0 [facility] Nucleated RBC/100 WBC (Bld) [Ratio] 0 % 0-5 [facility] MCHC Auto (RBC) [Mass/Vol]Or dered By: Breanne Ruiz on 12-27-2022 MCHC (RBC) [Mass/Vol] 29.7 g/dL 32-[address] [facility] No Panel InformationOrdered By: Breanne Ruiz on 12-27-2022 Estimated GFR (MDRD) Amer 101 mL/min >60 [facility] Comment on above: GFR Calc Estimated GFR (MDRD) Non-Af Amer 84 mL/min >60 [facility] Comment on above: Non- GFR Calc Platelets bldOrdered By: Prashant Ruiz on 12-27-2022 Platelets (Bld) [#/Vol] 491 10*3/uL 150-450 [facility] Serum or plasma calcium jj urement (mass/volume)Ordered By: Breanne Ruiz on 12-27-2022 Calcium [Mass/Vol] 9.3 mg/dL 8.5-10.1 [facility] Serum or plasma creatinine m easurement (mass/volume)Ordered By: Breanne Ruiz on 12-27-2022 Creatinine [Mass/Vol] 0.74 mg/dL 0.55-1.[address] [facility] Comment on above: The validity of the calculated GFR & GFRAA in patients over 70 years has not been determined. Clinical correlation is essential. Serum or plasma urea nitroge n measurement (mass/volume)Ordered By: Breanne Ruiz on 12-27-2022 Urea nitrogen [Mass/Vol] 24 mg/dL 7-18 [facility] Thin prep Papanicolaou smear with manual screeningOrdered By: vannessa Ruiz on 12-27-2022 Thin prep Papanicolaou smear with manual screening 6 5-15 [facility] Absolute lymphocyte countOrd ered By: vannessa Ruiz on 12-13-2022 Lymphocytes Auto (Unsp spec) [#/Vol] 0.84 10*3/uL 0.83-4.51 [facility] Basophil percentageOrdered B y: Breanne Ruiz on 12-13-2022 Basophils/100 WBC (Bld) 1.2 % 0-1 [facility] Chloride [Moles/Vol] 108 mmol/L 98-107 [facility] Eosinophils/100 WBC (Bld) 4.5 % 0-5 [facility] Glucose [Mass/Vol] 150 mg/dL 74-106 [facility] Comment on above: Fasting Glucose resu lt greater than or equal to 126 mg/dL suggests DIABETES MELLITUS per A.D.A. criteria. Neutrophils (Bld) [#/Vol] 5.4 10*3/uL 2.0-7.7 [facility] Neutrophils/100 WBC (Bld) 71.5 % 47-70 [facility] Potassium [Moles/Vol] 3.8 mmol/L 3.5-5.[address] [facility] Sodium [Moles/Vol] 139 mmol/L 136-145 [facility] WBC (Bld) [#/Vol] 7.5 10*3/uL 4.4-11.0 [facility] Blood erythrocytes count (nu mber/volume)Ordered By: Breanne Ruiz on 12-13-2022 RBC (Bld) [#/Vol] 4.96 10*6/uL 4.2-5.4 [facility] Blood hemoglobin measurement (mass/volume)Ordered By: Breanne Ruiz on 12-13-2022 Hemoglobin (Bld) [Mass/Vol] 13.2 g/dL 12.0-15.0 [facility] Blood lymphocytes/100 leukoc ytesOrdered By: Breanne Ruiz on 12-13-2022 Lymphocytes/100 WBC (Bld) 11.2 % 19-41 [facility] Blood monocytes/100 leukocyt esOrdered By: adalbertoquincychetan Ruiz on 12-13-2022 Monocytes/100 WBC (Bld) 10.4 % 0-10 [facility] Blood platelet mean volumeOr dered By: Breanne Ruiz on 12-13-2022 Platelet mean volume (Bld) [Entitic vol] 8.7 fL 6.2-12.0 [facility] Determination of erythrocyte mean corpuscular volume (MCV)Ordered By: Abbiequincychetan Ruiz on 12-13-2022 MCV (RBC) [Entitic vol] 87.1 fL 81-99 [facility] Hematocrit Auto (Bld) [Volum e fraction]Ordered By: Breanne Ruiz on 12-13-2022 Hematocrit (Bld) [Volume fraction] 43.2 % 37-47 [facility] - Chemistry and C hemistry - challengeOrdered By: [facility] on 12-13-2022 CO2 [Moles/Vol] 26.0 mmol/L 21.0-32.0 [facility] Urea nitrogen/Creatinine [Mass ratio] 31.7 mg/mg 10-20 [facility] - Hematology and Cell countsOrdered By: Breanne Ruiz on 12-13-2022 Erythrocyte distribution width (RBC) [Entitic vol] 49.9 fL 35.1-43.9 [facility] Erythrocyte distribution width (RBC) [Ratio] 15.9 % 11.6-14.6 [facility] Immature granulocytes/100 WBC (Bld) 1.200 % 0.0-0.9 [facility] Comment on above: IG% - Immature Granu locytes (promyelocytes, myelocytes and metamyelocytes) > 1% indicates that a LEFT SHIFT is Present. MCH (RBC) [Entitic mass] 26.6 pg 27.0-32.0 [facility] Nucleated RBC/100 WBC (Bld) [Ratio] 0 % 0-5 [facility] MCHC Auto (RBC) [Mass/Vol]Or dered By: Breanne Ruiz on 12-13-2022 MCHC (RBC) [Mass/Vol] 30.6 g/dL 32-[address] [facility] No Panel InformationOrdered By: Breanne Ruiz on 12-13-2022 Estimated GFR (MDRD) Amer 122 mL/min >60 [facility] Comment on above: GFR Calc Estimated GFR (MDRD) Non-Af Amer 101 mL/min >60 [facility] Comment on above: Non- GFR Calc Platelets bldOrdered By: Prashant Ruiz on 12-13-2022 Platelets (Bld) [#/Vol] 502 10*3/uL 150-450 [facility] Serum or plasma calcium jj urement (mass/volume)Ordered By: Breanne Ruiz on 12-13-2022 Calcium [Mass/Vol] 9.2 mg/dL 8.5-10.1 [facility] Serum or plasma creatinine m easurement (mass/volume)Ordered By: Breanne Ruiz on 12-13-2022 Creatinine [Mass/Vol] 0.63 mg/dL 0.55-1.[address] [facility] Comment on above: The validity of the calculated GFR & GFRAA in patients over 70 years has not been determined. Clinical correlation is essential. Serum or plasma urea nitroge n measurement (mass/volume)Ordered By: Breanne Ruiz on 12-13-2022 Urea nitrogen [Mass/Vol] 20 mg/dL 7-18 [facility] Thin prep Papanicolaou smear with manual screeningOrdered By: Breanne Ruiz on 12-13-2022 Thin prep Papanicolaou smear with manual screening 5 5-15 [facility] Absolute lymphocyte countOrd ered By: Breanne Ruiz on 11-29-2022 Lymphocytes Auto (Unsp spec) [#/Vol] 0.94 10*3/uL 0.83-4.51 [facility] Basophil percentageOrdered B y: Breanne Ruiz on 11-29-2022 Basophils/100 WBC (Bld) 1.1 % 0-1 [facility] Chloride [Moles/Vol] 106 mmol/L 98-107 [facility] Eosinophils/100 WBC (Bld) 5.0 % 0-5 [facility] Glucose [Mass/Vol] 137 mg/dL 74-106 [facility] Comment on above: Fasting Glucose resu lt greater than or equal to 126 mg/dL suggests DIABETES MELLITUS per A.D.A. criteria. Neutrophils (Bld) [#/Vol] 6.1 10*3/uL 2.0-7.7 [facility] Neutrophils/100 WBC (Bld) 71.9 % 47-70 [facility] Potassium [Moles/Vol] 3.9 mmol/L 3.5-5.[address] [facility] Sodium [Moles/Vol] 138 mmol/L 136-145 [facility] WBC (Bld) [#/Vol] 8.4 10*3/uL 4.4-11.0 [facility] Blood erythrocytes count (nu mber/volume)Ordered By: Breanne Ruiz on 11-29-2022 RBC (Bld) [#/Vol] 5.05 10*6/uL 4.2-5.4 [facility] Blood hemoglobin measurement (mass/volume)Ordered By: Breanne Ruiz on 11-29-2022 Hemoglobin (Bld) [Mass/Vol] 13.5 g/dL 12.0-15.0 [facility] Blood lymphocytes/100 leukoc ytesOrdered By: Breanne Ruiz on 11-29-2022 Lymphocytes/100 WBC (Bld) 11.1 % 19-41 [facility] Blood monocytes/100 leukocyt esOrdered By: Breanne Ruiz on 11-29-2022 Monocytes/100 WBC (Bld) 10.3 % 0-10 [facility] Blood platelet mean volumeOr dered By: Breanne Ruiz on 11-29-2022 Platelet mean volume (Bld) [Entitic vol] 8.8 fL 6.2-12.0 [facility] Determination of erythrocyte mean corpuscular volume (MCV)Ordered By: Breanne Ruiz on 11-29-2022 MCV (RBC) [Entitic vol] 87.5 fL 81-99 [facility] Hematocrit Auto (Bld) [Volum e fraction]Ordered By: Breanne Ruiz on 11-29-2022 Hematocrit (Bld) [Volume fraction] 44.2 % 37-47 [facility] - Chemistry and C hemistry - challengeOrdered By: Breanne Ruiz on 11-29-2022 CO2 [Moles/Vol] 23.0 mmol/L 21.0-32.0 [facility] Urea nitrogen/Creatinine [Mass ratio] 26.3 mg/mg 10-20 [facility] - Hematology and Cell countsOrdered By: Breanne Ruiz on 11-29-2022 Erythrocyte distribution width (RBC) [Entitic vol] 49.9 fL 35.1-43.9 [facility] Erythrocyte distribution width (RBC) [Ratio] 15.7 % 11.6-14.6 [facility] Immature granulocytes/100 WBC (Bld) 0.600 % 0.0-0.9 [facility] Comment on above: IG% - Immature Granu locytes (promyelocytes, myelocytes and metamyelocytes) > 1% indicates that a LEFT SHIFT is Present. MCH (RBC) [Entitic mass] 26.7 pg 27.0-32.0 [facility] Nucleated RBC/100 WBC (Bld) [Ratio] 0 % 0-5 [facility] MCHC Auto (RBC) [Mass/Vol]Or dered By: Breanne Ruiz on 11-29-2022 MCHC (RBC) [Mass/Vol] 30.5 g/dL 32-[address] [facility] No Panel InformationOrdered By: Breanne Ruiz on 11-29-2022 Estimated GFR (MDRD) Amer 104 mL/min >60 [facility] Comment on above: GFR Calc Estimated GFR (MDRD) Non-Af Amer 86 mL/min >60 [facility] Comment on above: Non- GFR Calc Platelets bldOrdered By: Prashant Ruiz on 11-29-2022 Platelets (Bld) [#/Vol] 479 10*3/uL 150-450 [facility] Serum or plasma calcium jj urement (mass/volume)Ordered By: Breanne Ruiz on 11-29-2022 Calcium [Mass/Vol] 9.4 mg/dL 8.5-10.1 [facility] Serum or plasma creatinine m easurement (mass/volume)Ordered By: Breanne Ruiz on 11-29-2022 Creatinine [Mass/Vol] 0.72 mg/dL 0.55-1.[address] [facility] Comment on above: The validity of the calculated GFR & GFRAA in patients over 70 years has not been determined. Clinical correlation is essential. Serum or plasma urea nitroge n measurement (mass/volume)Ordered By: Breanne Ruiz on 11-29-2022 Urea nitrogen [Mass/Vol] 19 mg/dL 7-18 [facility] Thin prep Papanicolaou smear with manual screeningOrdered By: [facility] Ru[facility] on 11-29-2022 Thin prep Papanicolaou smear with manual screening 9 5-15 [facility] Absolute lymphocyte countOrd ered By: Asad Jamison on 11-15-2022 Lymphocytes Auto (Unsp spec) [#/Vol] 1.08 10*3/uL 0.83-4.51 [facility] Basophil percentageOrdered B y: Asad Jamison on 11-15-2022 Basophils/100 WBC (Bld) 0.9 % 0-1 [facility] Chloride [Moles/Vol] 106 mmol/L 98-107 [facility] Eosinophils/100 WBC (Bld) 2.2 % 0-5 [facility] Glucose [Mass/Vol] 120 mg/dL 74-106 [facility] Comment on above: Fasting Glucose resu lt from 100 to 125 mg/dL suggests IMPAIRED HOMEOSTASIS per A.D.A. criteria. Neutrophils (Bld) [#/Vol] 8.1 10*3/uL 2.0-7.7 [facility] Neutrophils/100 WBC (Bld) 75.6 % 47-70 [facility] Potassium [Moles/Vol] 4.1 mmol/L 3.5-5.[address] [facility] Sodium [Moles/Vol] 141 mmol/L 136-145 [facility] WBC (Bld) [#/Vol] 10.7 10*3/uL 4.4-11.0 [facility] Blood erythrocytes count (nu mber/volume)Ordered By: Asad Jamison on 11-15-2022 RBC (Bld) [#/Vol] 5.54 10*6/uL 4.2-5.4 [facility] Blood hemoglobin measurement (mass/volume)Ordered By: Asad Jamison on 11-15-2022 Hemoglobin (Bld) [Mass/Vol] 14.8 g/dL 12.0-15.0 [facility] Blood lymphocytes/100 leukoc ytesOrdered By: Asad Jamison on 11-15-2022 Lymphocytes/100 WBC (Bld) 10.1 % 19-41 [facility] Blood monocytes/100 leukocyt esOrdered By: Asad Jamison on 11-15-2022 Monocytes/100 WBC (Bld) 9.6 % 0-10 [facility] Blood platelet mean volumeOr dered By: Asad Jamison on 11-15-2022 Platelet mean volume (Bld) [Entitic vol] 9.1 fL 6.2-12.0 [facility] Determination of erythrocyte mean corpuscular volume (MCV)Ordered By: Asad Jamison on 11-15-2022 MCV (RBC) [Entitic vol] 87.9 fL 81-99 [facility] Hematocrit Auto (Bld) [Volum e fraction]Ordered By: Asad Jamison on 11-15-2022 Hematocrit (Bld) [Volume fraction] 48.7 % 37-47 [facility] - Chemistry and C hemistry - challengeOrdered By: Asad Jamison on 11-15-2022 CO2 [Moles/Vol] 27.0 mmol/L 21.0-32.0 [facility] Urea nitrogen/Creatinine [Mass ratio] 35.6 mg/mg 10-20 [facility] - Hematology and Cell countsOrdered By: Asad Jamison on 11-15-2022 Erythrocyte distribution width (RBC) [Entitic vol] 50.8 fL 35.1-43.9 [facility] Erythrocyte distribution width (RBC) [Ratio] 15.9 % 11.6-14.6 [facility] Immature granulocytes/100 WBC (Bld) 1.600 % 0.0-0.9 [facility] Comment on above: IG% - Immature Granu locytes (promyelocytes, myelocytes and metamyelocytes) > 1% indicates that a LEFT SHIFT is Present. MCH (RBC) [Entitic mass] 26.7 pg 27.0-32.0 [facility] Nucleated RBC/100 WBC (Bld) [Ratio] 0 % 0-5 [facility] MCHC Auto (RBC) [Mass/Vol]Or dered By: Asad Jamison on 11-15-2022 MCHC (RBC) [Mass/Vol] 30.4 g/dL 32-[address] [facility] No Panel InformationOrdered By: Asad Jamison on 11-15-2022 Estimated GFR (MDRD) Amer 99 mL/min >60 [facility] Comment on above: GFR Calc Estimated GFR (MDRD) Non-Af Amer 81 mL/min >60 [facility] Comment on above: Non- GFR Calc Platelets bldOrdered By: Gonzales Jamison on 11-15-2022 Platelets (Bld) [#/Vol] 540 10*3/uL 150-450 [facility] Serum or plasma calcium jj urement (mass/volume)Ordered By: Asad Jamison on 11-15-2022 Calcium [Mass/Vol] 9.5 mg/dL 8.5-10.1 [facility] Serum or plasma creatinine m easurement (mass/volume)Ordered By: Asad Jamison on 11-15-2022 Creatinine [Mass/Vol] 0.76 mg/dL 0.55-1.[address] [facility] Comment on above: The validity of the calculated GFR & GFRAA in patients over 70 years has not been determined. Clinical correlation is essential. Serum or plasma urea nitroge n measurement (mass/volume)Ordered By: Asad Jamison on 11-15-2022 Urea nitrogen [Mass/Vol] 27 mg/dL 7-18 [facility] Thin prep Papanicolaou smear with manual screeningOrdered By: Asad Jamison on 11-15-2022 Thin prep Papanicolaou smear with manual screening 8 5-15 [facility] Absolute lymphocyte countOrd ered By: Asad Jamison on 11-01-2022 Lymphocytes Auto (Unsp spec) [#/Vol] 0.81 10*3/uL 0.83-4.51 [facility] Basophil percentageOrdered B y: Asad Jamison on 11-01-2022 Basophils/100 WBC (Bld) 1.0 % 0-1 [facility] Chloride [Moles/Vol] 107 mmol/L 98-107 [facility] Eosinophils/100 WBC (Bld) 4.8 % 0-5 [facility] Glucose [Mass/Vol] 135 mg/dL 74-106 [facility] Comment on above: Fasting Glucose resu lt greater than or equal to 126 mg/dL suggests DIABETES MELLITUS per A.D.A. criteria. Neutrophils (Bld) [#/Vol] 5.9 10*3/uL 2.0-7.7 [facility] Neutrophils/100 WBC (Bld) 73.2 % 47-70 [facility] Potassium [Moles/Vol] 3.9 mmol/L 3.5-5.[address] [facility] Sodium [Moles/Vol] 141 mmol/L 136-145 [facility] WBC (Bld) [#/Vol] 8.1 10*3/uL 4.4-11.0 [facility] Blood erythrocytes count (nu mber/volume)Ordered By: Asad Jamison on 11-01-2022 RBC (Bld) [#/Vol] 5.16 10*6/uL 4.2-5.4 [facility] Blood hemoglobin measurement (mass/volume)Ordered By: Asad Jamison on 11-01-2022 Hemoglobin (Bld) [Mass/Vol] 13.3 g/dL 12.0-15.0 [facility] Blood lymphocytes/100 leukoc ytesOrdered By: Asad Jamison on 11-01-2022 Lymphocytes/100 WBC (Bld) 10.0 % 19-41 [facility] Blood monocytes/100 leukocyt esOrdered By: Asad Jamison on 11-01-2022 Monocytes/100 WBC (Bld) 9.9 % 0-10 [facility] Blood platelet mean volumeOr dered By: Asad Jamison on 11-01-2022 Platelet mean volume (Bld) [Entitic vol] 8.9 fL 6.2-12.0 [facility] Determination of erythrocyte mean corpuscular volume (MCV)Ordered By: Asad Jamison on 11-01-2022 MCV (RBC) [Entitic vol] 87.4 fL 81-99 [facility] Hematocrit Auto (Bld) [Volum e fraction]Ordered By: Asad Jamison on 11-01-2022 Hematocrit (Bld) [Volume fraction] 45.1 % 37-47 [facility] - Chemistry and C hemistry - challengeOrdered By: Asad Jamison on 11-01-2022 CO2 [Moles/Vol] 25.0 mmol/L 21.0-32.0 [facility] Urea nitrogen/Creatinine [Mass ratio] 32.7 mg/mg 10-20 [facility] - Hematology and Cell countsOrdered By: Asad Jamison on 11-01-2022 Erythrocyte distribution width (RBC) [Entitic vol] 47.9 fL 35.1-43.9 [facility] Erythrocyte distribution width (RBC) [Ratio] 15.1 % 11.6-14.6 [facility] Immature granulocytes/100 WBC (Bld) 1.100 % 0.0-0.9 [facility] Comment on above: IG% - Immature Granu locytes (promyelocytes, myelocytes and metamyelocytes) > 1% indicates that a LEFT SHIFT is Present. MCH (RBC) [Entitic mass] 25.8 pg 27.0-32.0 [facility] Nucleated RBC/100 WBC (Bld) [Ratio] 0 % 0-5 [facility] MCHC Auto (RBC) [Mass/Vol]Or dered By: Asad Jamison on 11-01-2022 MCHC (RBC) [Mass/Vol] 29.5 g/dL 32-[address] [facility] No Panel InformationOrdered By: Asad Jamison on 11-01-2022 Estimated GFR (MDRD) Amer 108 mL/min >60 [facility] Comment on above: GFR Calc Estimated GFR (MDRD) Non-Af Amer 89 mL/min >60 [facility] Comment on above: Non- GFR Calc Platelets bldOrdered By: Gonzales Jamison on 11-01-2022 Platelets (Bld) [#/Vol] 467 10*3/uL 150-450 [facility] Serum or plasma calcium jj urement (mass/volume)Ordered By: Asad Jamison on 11-01-2022 Calcium [Mass/Vol] 9.3 mg/dL 8.5-10.1 [facility] Serum or plasma creatinine m easurement (mass/volume)Ordered By: Asad Jamison on 11-01-2022 Creatinine [Mass/Vol] 0.70 mg/dL 0.55-1.[address] [facility] Comment on above: The validity of the calculated GFR & GFRAA in patients over 70 years has not been determined. Clinical correlation is essential. Serum or plasma urea nitroge n measurement (mass/volume)Ordered By: Asad Jamison on 11-01-2022 Urea nitrogen [Mass/Vol] 23 mg/dL 7-18 [facility] Thin prep Papanicolaou smear with manual screeningOrdered By: Asad Jamison on 11-01-2022 Thin prep Papanicolaou smear with manual screening 9 5-15 [facility] Absolute lymphocyte countOrd ered By: Asad Jamison on 10-18-2022 Lymphocytes Auto (Unsp spec) [#/Vol] 1.14 10*3/uL 0.83-4.51 [facility] Basophil percentageOrdered B y: Asad Jamison on 10-18-2022 Basophils/100 WBC (Bld) 1.1 % 0-1 [facility] Chloride [Moles/Vol] 110 mmol/L 98-107 [facility] Eosinophils/100 WBC (Bld) 5.0 % 0-5 [facility] Glucose [Mass/Vol] 179 mg/dL 74-106 [facility] Comment on above: Fasting Glucose resu lt greater than or equal to 126 mg/dL suggests DIABETES MELLITUS per A.D.A. criteria. Neutrophils (Bld) [#/Vol] 6.5 10*3/uL 2.0-7.7 [facility] Neutrophils/100 WBC (Bld) 69.3 % 47-70 [facility] Potassium [Moles/Vol] 4.0 mmol/L 3.5-5.[address] [facility] Sodium [Moles/Vol] 140 mmol/L 136-145 [facility] WBC (Bld) [#/Vol] 9.4 10*3/uL 4.4-11.0 [facility] Blood erythrocytes count (nu mber/volume)Ordered By: Asad Jamison on 10-18-2022 RBC (Bld) [#/Vol] 5.10 10*6/uL 4.2-5.4 [facility] Blood hemoglobin measurement (mass/volume)Ordered By: Asad Jamison on 10-18-2022 Hemoglobin (Bld) [Mass/Vol] 13.6 g/dL 12.0-15.0 [facility] Blood lymphocytes/100 leukoc ytesOrdered By: Asad Jamison on 10-18-2022 Lymphocytes/100 WBC (Bld) 12.1 % 19-41 [facility] Blood monocytes/100 leukocyt esOrdered By: Asad Jamison on 10-18-2022 Monocytes/100 WBC (Bld) 11.1 % 0-10 [facility] Blood platelet mean volumeOr dered By: Asad Jamison on 10-18-2022 Platelet mean volume (Bld) [Entitic vol] 8.6 fL 6.2-12.0 [facility] Determination of erythrocyte mean corpuscular volume (MCV)Ordered By: Asad Jamison on 10-18-2022 MCV (RBC) [Entitic vol] 87.5 fL 81-99 [facility] Hematocrit Auto (Bld) [Volum e fraction]Ordered By: Asad Jamison on 10-18-2022 Hematocrit (Bld) [Volume fraction] 44.6 % 37-47 [facility] - Chemistry and C hemistry - challengeOrdered By: Asad Jamison on 10-18-2022 CO2 [Moles/Vol] 22.0 mmol/L 21.0-32.0 [facility] Urea nitrogen/Creatinine [Mass ratio] 28.1 mg/mg 10-20 [facility] - Hematology and Cell countsOrdered By: Asad Jamison on 10-18-2022 Erythrocyte distribution width (RBC) [Entitic vol] 46.2 fL 35.1-43.9 [facility] Erythrocyte distribution width (RBC) [Ratio] 14.3 % 11.6-14.6 [facility] Immature granulocytes/100 WBC (Bld) 1.400 % 0.0-0.9 [facility] Comment on above: IG% - Immature Granu locytes (promyelocytes, myelocytes and metamyelocytes) > 1% indicates that a LEFT SHIFT is Present. MCH (RBC) [Entitic mass] 26.7 pg 27.0-32.0 [facility] Nucleated RBC/100 WBC (Bld) [Ratio] 0 % 0-5 [facility] MCHC Auto (RBC) [Mass/Vol]Or dered By: Asad Jamison on 10-18-2022 MCHC (RBC) [Mass/Vol] 30.5 g/dL 32-[address] [facility] No Panel InformationOrdered By: Asad Jamison on 10-18-2022 Estimated GFR (MDRD) Amer 106 mL/min >60 [facility] Comment on above: GFR Calc Estimated GFR (MDRD) Non-Af Amer 88 mL/min >60 [facility] Comment on above: Non- GFR Calc Platelets bldOrdered By: Gonzales Jamison on 10-18-2022 Platelets (Bld) [#/Vol] 622 10*3/uL 150-450 [facility] Serum or plasma calcium jj urement (mass/volume)Ordered By: Asad Jamison on 10-18-2022 Calcium [Mass/Vol] 9.4 mg/dL 8.5-10.1 [facility] Serum or plasma creatinine m easurement (mass/volume)Ordered By: Asad Jamison on 10-18-2022 Creatinine [Mass/Vol] 0.71 mg/dL 0.55-1.[address] [facility] Comment on above: The validity of the calculated GFR & GFRAA in patients over 70 years has not been determined. Clinical correlation is essential. Serum or plasma urea nitroge n measurement (mass/volume)Ordered By: Asad Jamison on 10-18-2022 Urea nitrogen [Mass/Vol] 20 mg/dL 7-18 [facility] Thin prep Papanicolaou smear with manual screeningOrdered By: Asad Jamison on 10-18-2022 Thin prep Papanicolaou smear with manual screening 8 5-15 [facility] Absolute lymphocyte countOrd ered By: Asad Jamison on 10-04-2022 Lymphocytes Auto (Unsp spec) [#/Vol] 1.09 10*3/uL 0.83-4.51 [facility] Basophil percentageOrdered B y: Asad Jamison on 10-04-2022 Basophils/100 WBC (Bld) 1.2 % 0-1 [facility] Chloride [Moles/Vol] 107 mmol/L 98-107 [facility] Eosinophils/100 WBC (Bld) 4.5 % 0-5 [facility] Glucose [Mass/Vol] 123 mg/dL 74-106 [facility] Comment on above: Fasting Glucose resu lt from 100 to 125 mg/dL suggests IMPAIRED HOMEOSTASIS per A.D.A. criteria. Neutrophils (Bld) [#/Vol] 6.5 10*3/uL 2.0-7.7 [facility] Neutrophils/100 WBC (Bld) 71.3 % 47-70 [facility] Potassium [Moles/Vol] 3.9 mmol/L 3.5-5.[address] [facility] Sodium [Moles/Vol] 140 mmol/L 136-145 [facility] WBC (Bld) [#/Vol] 9.1 10*3/uL 4.4-11.0 [facility] Blood erythrocytes count (nu mber/volume)Ordered By: Asad Jamison on 10-04-2022 RBC (Bld) [#/Vol] 5.46 10*6/uL 4.2-5.4 [facility] Blood hemoglobin measurement (mass/volume)Ordered By: Asad Jamison on 10-04-2022 Hemoglobin (Bld) [Mass/Vol] 14.4 g/dL 12.0-15.0 [facility] Blood lymphocytes/100 leukoc ytesOrdered By: Asad Jamison on 10-04-2022 Lymphocytes/100 WBC (Bld) 12.0 % 19-41 [facility] Blood monocytes/100 leukocyt esOrdered By: Asad Jamison on 10-04-2022 Monocytes/100 WBC (Bld) 10.0 % 0-10 [facility] Blood platelet mean volumeOr dered By: Asad Jamison on 10-04-2022 Platelet mean volume (Bld) [Entitic vol] 8.4 fL 6.2-12.0 [facility] Determination of erythrocyte mean corpuscular volume (MCV)Ordered By: Asad Jamison on 10-04-2022 MCV (RBC) [Entitic vol] 86.1 fL 81-99 [facility] Hematocrit Auto (Bld) [Volum e fraction]Ordered By: Asad Jamison on 10-04-2022 Hematocrit (Bld) [Volume fraction] 47.0 % 37-47 [facility] - Chemistry and C hemistry - challengeOrdered By: Asad Jamison on 10-04-2022 CO2 [Moles/Vol] 25.0 mmol/L 21.0-32.0 [facility] Urea nitrogen/Creatinine [Mass ratio] 34.6 mg/mg 10-20 [facility] - Hematology and Cell countsOrdered By: Asad Jamison on 10-04-2022 Erythrocyte distribution width (RBC) [Entitic vol] 44.2 fL 35.1-43.9 [facility] Erythrocyte distribution width (RBC) [Ratio] 14.2 % 11.6-14.6 [facility] Immature granulocytes/100 WBC (Bld) 1.000 % 0.0-0.9 [facility] Comment on above: IG% - Immature Granu locytes (promyelocytes, myelocytes and metamyelocytes) > 1% indicates that a LEFT SHIFT is Present. MCH (RBC) [Entitic mass] 26.4 pg 27.0-32.0 [facility] Nucleated RBC/100 WBC (Bld) [Ratio] 0 % 0-5 [facility] MCHC Auto (RBC) [Mass/Vol]Or dered By: Asad Jamison on 10-04-2022 MCHC (RBC) [Mass/Vol] 30.6 g/dL 32-[address] [facility] No Panel InformationOrdered By: Asad Jamison on 10-04-2022 Estimated GFR (MDRD) Amer 115 mL/min >60 [facility] Comment on above: GFR Calc Estimated GFR (MDRD) Non-Af Amer 95 mL/min >60 [facility] Comment on above: Non- GFR Calc Platelets bldOrdered By: Gonzales Jamison on 10-04-2022 Platelets (Bld) [#/Vol] 566 10*3/uL 150-450 [facility] Serum or plasma calcium jj urement (mass/volume)Ordered By: Asad Jamison on 10-04-2022 Calcium [Mass/Vol] 9.8 mg/dL 8.5-10.1 [facility] Serum or plasma creatinine m easurement (mass/volume)Ordered By: Asad Jamison on 10-04-2022 Creatinine [Mass/Vol] 0.66 mg/dL 0.55-1.[address] [facility] Comment on above: The validity of the calculated GFR & GFRAA in patients over 70 years has not been determined. Clinical correlation is essential. Serum or plasma urea nitroge n measurement (mass/volume)Ordered By: Asad Jamison on 10-04-2022 Urea nitrogen [Mass/Vol] 23 mg/dL 7-18 [facility] Thin prep Papanicolaou smear with manual screeningOrdered By: Asad Jamison on 10-04-2022 Thin prep Papanicolaou smear with manual screening 8 5-15 [facility] Absolute lymphocyte countOrd ered By: Asad Jamison on 09-20-2022 Lymphocytes Auto (Unsp spec) [#/Vol] 1.20 10*3/uL 0.83-4.51 [facility] Basophil percentageOrdered B y: Asad Jamison on 09-20-2022 Basophils/100 WBC (Bld) 1.1 % 0-1 [facility] Chloride [Moles/Vol] 110 mmol/L 98-107 [facility] Eosinophils/100 WBC (Bld) 5.3 % 0-5 [facility] Glucose [Mass/Vol] 129 mg/dL 74-106 [facility] Comment on above: Fasting Glucose resu lt greater than or equal to 126 mg/dL suggests DIABETES MELLITUS per A.D.A. criteria. Neutrophils (Bld) [#/Vol] 7.2 10*3/uL 2.0-7.7 [facility] Neutrophils/100 WBC (Bld) 71.4 % 47-70 [facility] Potassium [Moles/Vol] 4.0 mmol/L 3.5-5.[address] [facility] Sodium [Moles/Vol] 139 mmol/L 136-145 [facility] WBC (Bld) [#/Vol] 10.0 10*3/uL 4.4-11.0 [facility] Blood erythrocytes count (nu mber/volume)Ordered By: Asad Jamison on 09-20-2022 RBC (Bld) [#/Vol] 4.97 10*6/uL 4.2-5.4 [facility] Blood hemoglobin measurement (mass/volume)Ordered By: Asad Jamison on 09-20-2022 Hemoglobin (Bld) [Mass/Vol] 13.4 g/dL 12.0-15.0 [facility] Blood lymphocytes/100 leukoc ytesOrdered By: Asad Jamison on 09-20-2022 Lymphocytes/100 WBC (Bld) 12.0 % 19-41 [facility] Blood monocytes/100 leukocyt esOrdered By: Asad Jamison on 09-20-2022 Monocytes/100 WBC (Bld) 9.3 % 0-10 [facility] Blood platelet mean volumeOr dered By: Asad Jamison on 09-20-2022 Platelet mean volume (Bld) [Entitic vol] 8.7 fL 6.2-12.0 [facility] Determination of erythrocyte mean corpuscular volume (MCV)Ordered By: Asad Jamison on 09-20-2022 MCV (RBC) [Entitic vol] 88.3 fL 81-99 [facility] Hematocrit Auto (Bld) [Volum e fraction]Ordered By: Asad Jamison on 09-20-2022 Hematocrit (Bld) [Volume fraction] 43.9 % 37-47 [facility] - Chemistry and C hemistry - challengeOrdered By: Asad Jamison on 09-20-2022 CO2 [Moles/Vol] 25.0 mmol/L 21.0-32.0 [facility] Urea nitrogen/Creatinine [Mass ratio] 41.7 mg/mg 10-20 [facility] - Hematology and Cell countsOrdered By: Asad Jamison on 09-20-2022 Erythrocyte distribution width (RBC) [Entitic vol] 45.1 fL 35.1-43.9 [facility] Erythrocyte distribution width (RBC) [Ratio] 14.2 % 11.6-14.6 [facility] Immature granulocytes/100 WBC (Bld) 0.900 % 0.0-0.9 [facility] Comment on above: IG% - Immature Granu locytes (promyelocytes, myelocytes and metamyelocytes) > 1% indicates that a LEFT SHIFT is Present. MCH (RBC) [Entitic mass] 27.0 pg 27.0-32.0 [facility] Nucleated RBC/100 WBC (Bld) [Ratio] 0 % 0-5 [facility] MCHC Auto (RBC) [Mass/Vol]Or dered By: Asad Jamison on 09-20-2022 MCHC (RBC) [Mass/Vol] 30.5 g/dL 32-[address] [facility] No Panel InformationOrdered By: Asad Jamison on 09-20-2022 Estimated GFR (MDRD) Amer 129 mL/min >60 [facility] Comment on above: GFR Calc Estimated GFR (MDRD) Non-Af Amer 107 mL/min >60 [facility] Comment on above: Non- GFR Calc Platelets bldOrdered By: Gonzales Jamison on 09-20-2022 Platelets (Bld) [#/Vol] 533 10*3/uL 150-450 [facility] Serum or plasma calcium jj urement (mass/volume)Ordered By: Asad Jamison on 09-20-2022 Calcium [Mass/Vol] 9.4 mg/dL 8.5-10.1 [facility] Serum or plasma creatinine m easurement (mass/volume)Ordered By: Asad Jamison on 09-20-2022 Creatinine [Mass/Vol] 0.60 mg/dL 0.55-1.[address] [facility] Comment on above: The validity of the calculated GFR & GFRAA in patients over 70 years has not been determined. Clinical correlation is essential. Serum or plasma urea nitroge n measurement (mass/volume)Ordered By: Asad Jamison on 09-20-2022 Urea nitrogen [Mass/Vol] 25 mg/dL 7-18 [facility] Thin prep Papanicolaou smear with manual screeningOrdered By: Asad Jamison on 09-20-2022 Thin prep Papanicolaou smear with manual screening 4 5-15 [facility] Absolute lymphocyte countOrd ered By: Asad Jamison on 09-06-2022 Lymphocytes Auto (Unsp spec) [#/Vol] 0.97 10*3/uL 0.83-4.51 [facility] Basophil percentageOrdered B y: Asad Jamison on 09-06-2022 Basophils/100 WBC (Bld) 1.0 % 0-1 [facility] Chloride [Moles/Vol] 107 mmol/L 98-107 [facility] Eosinophils/100 WBC (Bld) 4.5 % 0-5 [facility] Glucose [Mass/Vol] 112 mg/dL 74-106 [facility] Comment on above: Fasting Glucose resu lt from 100 to 125 mg/dL suggests IMPAIRED HOMEOSTASIS per A.D.A. criteria. Neutrophils (Bld) [#/Vol] 6.2 10*3/uL 2.0-7.7 [facility] Neutrophils/100 WBC (Bld) 72.2 % 47-70 [facility] Potassium [Moles/Vol] 3.7 mmol/L 3.5-5.[address] [facility] Sodium [Moles/Vol] 138 mmol/L 136-145 [facility] WBC (Bld) [#/Vol] 8.6 10*3/uL 4.4-11.0 [facility] Blood erythrocytes count (nu mber/volume)Ordered By: Asad Jamison on 09-06-2022 RBC (Bld) [#/Vol] 5.05 10*6/uL 4.2-5.4 [facility] Blood hemoglobin measurement (mass/volume)Ordered By: Asad Jamison on 09-06-2022 Hemoglobin (Bld) [Mass/Vol] 13.6 g/dL 12.0-15.0 [facility] Blood lymphocytes/100 leukoc ytesOrdered By: Asad Jamison on 09-06-2022 Lymphocytes/100 WBC (Bld) 11.3 % 19-41 [facility] Blood monocytes/100 leukocyt esOrdered By: Asad Jamison on 09-06-2022 Monocytes/100 WBC (Bld) 10.4 % 0-10 [facility] Blood platelet mean volumeOr dered By: Asad Jamison on 09-06-2022 Platelet mean volume (Bld) [Entitic vol] 8.4 fL 6.2-12.0 [facility] Determination of erythrocyte mean corpuscular volume (MCV)Ordered By: Asad Jamison on 09-06-2022 MCV (RBC) [Entitic vol] 87.7 fL 81-99 [facility] Hematocrit Auto (Bld) [Volum e fraction]Ordered By: Asad Jamison on 09-06-2022 Hematocrit (Bld) [Volume fraction] 44.3 % 37-47 [facility] - Chemistry and C hemistry - challengeOrdered By: Asad Jamison on 09-06-2022 CO2 [Moles/Vol] 25.0 mmol/L 21.0-32.0 [facility] Urea nitrogen/Creatinine [Mass ratio] 30.4 mg/mg 10-20 [facility] - Hematology and Cell countsOrdered By: Asad Jamison on 09-06-2022 Erythrocyte distribution width (RBC) [Entitic vol] 45.9 fL 35.1-43.9 [facility] Erythrocyte distribution width (RBC) [Ratio] 14.3 % 11.6-14.6 [facility] Immature granulocytes/100 WBC (Bld) 0.600 % 0.0-0.9 [facility] Comment on above: IG% - Immature Granu locytes (promyelocytes, myelocytes and metamyelocytes) > 1% indicates that a LEFT SHIFT is Present. MCH (RBC) [Entitic mass] 26.9 pg 27.0-32.0 [facility] Nucleated RBC/100 WBC (Bld) [Ratio] 0 % 0-5 [facility] MCHC Auto (RBC) [Mass/Vol]Or dered By: Asad Jamison on 09-06-2022 MCHC (RBC) [Mass/Vol] 30.7 g/dL 32-[address] [facility] No Panel InformationOrdered By: Asad Jamison on 09-06-2022 Estimated GFR (MDRD) Amer 116 mL/min >60 [facility] Comment on above: GFR Calc Estimated GFR (MDRD) Non-Af Amer 96 mL/min >60 [facility] Comment on above: Non- GFR Calc Platelets bldOrdered By: Gonzales Jamison on 09-06-2022 Platelets (Bld) [#/Vol] 484 10*3/uL 150-450 [facility] Serum or plasma calcium jj urement (mass/volume)Ordered By: Asad Jamison on 09-06-2022 Calcium [Mass/Vol] 9.4 mg/dL 8.5-10.1 [facility] Serum or plasma creatinine m easurement (mass/volume)Ordered By: Asad Jamison on 09-06-2022 Creatinine [Mass/Vol] 0.66 mg/dL 0.55-1.[address] [facility] Comment on above: The validity of the calculated GFR & GFRAA in patients over 70 years has not been determined. Clinical correlation is essential. Serum or plasma urea nitroge n measurement (mass/volume)Ordered By: Asad Jamison on 09-06-2022 Urea nitrogen [Mass/Vol] 20 mg/dL 7-18 [facility] Thin prep Papanicolaou smear with manual screeningOrdered By: Asad Jamison on 09-06-2022 Thin prep Papanicolaou smear with manual screening 6 5-15 [facility] Absolute lymphocyte countOrd ered By: Asad Jamison on 08-23-2022 Lymphocytes Auto (Unsp spec) [#/Vol] 1.01 10*3/uL 0.83-4.51 [facility] Basophil percentageOrdered B y: Asad Jamison on 08-23-2022 Basophils/100 WBC (Bld) 1.6 % 0-1 [facility] Chloride [Moles/Vol] 106 mmol/L 98-107 [facility] Eosinophils/100 WBC (Bld) 5.7 % 0-5 [facility] Glucose [Mass/Vol] 129 mg/dL 74-106 [facility] Comment on above: Fasting Glucose resu lt greater than or equal to 126 mg/dL suggests DIABETES MELLITUS per A.D.A. criteria. Neutrophils (Bld) [#/Vol] 4.6 10*3/uL 2.0-7.7 [facility] Neutrophils/100 WBC (Bld) 65.1 % 47-70 [facility] Potassium [Moles/Vol] 4.1 mmol/L 3.5-5.[address] [facility] Sodium [Moles/Vol] 141 mmol/L 136-145 [facility] WBC (Bld) [#/Vol] 7.0 10*3/uL 4.4-11.0 [facility] Blood erythrocytes count (nu mber/volume)Ordered By: Asad Jamison on 08-23-2022 RBC (Bld) [#/Vol] 5.08 10*6/uL 4.2-5.4 [facility] Blood hemoglobin measurement (mass/volume)Ordered By: Asad Jamison on 08-23-2022 Hemoglobin (Bld) [Mass/Vol] 13.7 g/dL 12.0-15.0 [facility] Blood lymphocytes/100 leukoc ytesOrdered By: Asad Jamison on 08-23-2022 Lymphocytes/100 WBC (Bld) 14.4 % 19-41 [facility] Blood monocytes/100 leukocyt esOrdered By: Asad Jamison on 08-23-2022 Monocytes/100 WBC (Bld) 12.5 % 0-10 [facility] Blood platelet mean volumeOr dered By: Asad Jamison on 08-23-2022 Platelet mean volume (Bld) [Entitic vol] 9.1 fL 6.2-12.0 [facility] Determination of erythrocyte mean corpuscular volume (MCV)Ordered By: Asad Jamison on 08-23-2022 MCV (RBC) [Entitic vol] 88.4 fL 81-99 [facility] Hematocrit Auto (Bld) [Volum e fraction]Ordered By: Asad Jamison on 08-23-2022 Hematocrit (Bld) [Volume fraction] 44.9 % 37-47 [facility] - Chemistry and C hemistry - challengeOrdered By: Asad Jamison on 08-23-2022 CO2 [Moles/Vol] 26.0 mmol/L 21.0-32.0 [facility] Urea nitrogen/Creatinine [Mass ratio] 38.0 mg/mg 10-20 [facility] - Hematology and Cell countsOrdered By: Asad Jamison on 08-23-2022 Erythrocyte distribution width (RBC) [Entitic vol] 45.2 fL 35.1-43.9 [facility] Erythrocyte distribution width (RBC) [Ratio] 14.1 % 11.6-14.6 [facility] Immature granulocytes/100 WBC (Bld) 0.700 % 0.0-0.9 [facility] Comment on above: IG% - Immature Granu locytes (promyelocytes, myelocytes and metamyelocytes) > 1% indicates that a LEFT SHIFT is Present. MCH (RBC) [Entitic mass] 27.0 pg 27.0-32.0 [facility] Nucleated RBC/100 WBC (Bld) [Ratio] 0 % 0-5 [facility] MCHC Auto (RBC) [Mass/Vol]Or dered By: Asad Jamison on 08-23-2022 MCHC (RBC) [Mass/Vol] 30.5 g/dL 32-[address] [facility] No Panel InformationOrdered By: Asad Jamison on 08-23-2022 Estimated GFR (MDRD) Amer 128 mL/min >60 [facility] Comment on above: GFR Calc Estimated GFR (MDRD) Non-Af Amer 106 mL/min >60 [facility] Comment on above: Non- GFR Calc Platelets bldOrdered By: Gonzales Jamison on 08-23-2022 Platelets (Bld) [#/Vol] 504 10*3/uL 150-450 [facility] Serum or plasma calcium jj urement (mass/volume)Ordered By: Asad Jamison on 08-23-2022 Calcium [Mass/Vol] 9.5 mg/dL 8.5-10.1 [facility] Serum or plasma creatinine m easurement (mass/volume)Ordered By: Asad Jamison on 08-23-2022 Creatinine [Mass/Vol] 0.60 mg/dL 0.55-1.[address] [facility] Comment on above: The validity of the calculated GFR & GFRAA in patients over 70 years has not been determined. Clinical correlation is essential. Serum or plasma urea nitroge n measurement (mass/volume)Ordered By: Asad Jamison on 08-23-2022 Urea nitrogen [Mass/Vol] 23 mg/dL 7-18 [facility] Thin prep Papanicolaou smear with manual screeningOrdered By: Asad Jamison on 08-23-2022 Thin prep Papanicolaou smear with manual screening 9 5-15 [facility] Absolute lymphocyte countOrd ered By: Breanne Ruiz on 08-09-2022 Lymphocytes Auto (Unsp spec) [#/Vol] 1.01 10*3/uL 0.83-4.51 [facility] Basophil percentageOrdered B y: Breanne Ruiz on 08-09-2022 Basophils/100 WBC (Bld) 1.0 % 0-1 [facility] Chloride [Moles/Vol] 106 mmol/L 98-107 [facility] Eosinophils/100 WBC (Bld) 5.8 % 0-5 [facility] Glucose [Mass/Vol] 117 mg/dL 74-106 [facility] Comment on above: Fasting Glucose resu lt from 100 to 125 mg/dL suggests IMPAIRED HOMEOSTASIS per A.D.A. criteria. Neutrophils (Bld) [#/Vol] 5.8 10*3/uL 2.0-7.7 [facility] Neutrophils/100 WBC (Bld) 69.6 % 47-70 [facility] Potassium [Moles/Vol] 4.1 mmol/L 3.5-5.[address] [facility] Comment on above: Slight Hemolysis, Re sult may be falsely increased. Sodium [Moles/Vol] 138 mmol/L 136-145 [facility] WBC (Bld) [#/Vol] 8.3 10*3/uL 4.4-11.0 [facility] Blood erythrocytes count (nu mber/volume)Ordered By: Breanne Ruiz on 08-09-2022 RBC (Bld) [#/Vol] 4.96 10*6/uL 4.2-5.4 [facility] Blood hemoglobin measurement (mass/volume)Ordered By: Breanne Ruiz on 08-09-2022 Hemoglobin (Bld) [Mass/Vol] 13.3 g/dL 12.0-15.0 [facility] Blood lymphocytes/100 leukoc ytesOrdered By: Breanne Ruiz on 08-09-2022 Lymphocytes/100 WBC (Bld) 12.2 % 19-41 [facility] Blood monocytes/100 leukocyt esOrdered By: Breanne Ruiz on 08-09-2022 Monocytes/100 WBC (Bld) 10.8 % 0-10 [facility] Blood platelet mean volumeOr dered By: Breanne Ruiz on 08-09-2022 Platelet mean volume (Bld) [Entitic vol] 9.0 fL 6.2-12.0 [facility] Determination of erythrocyte mean corpuscular volume (MCV)Ordered By: Breanne Ruiz on 08-09-2022 MCV (RBC) [Entitic vol] 89.3 fL 81-99 [facility] Hematocrit Auto (Bld) [Volum e fraction]Ordered By: Breanne Ruiz on 08-09-2022 Hematocrit (Bld) [Volume fraction] 44.3 % 37-47 [facility] - Chemistry and C hemistry - challengeOrdered By: Breanne Ruiz on 08-09-2022 CO2 [Moles/Vol] 23.0 mmol/L 21.0-32.0 [facility] Urea nitrogen/Creatinine [Mass ratio] 38.2 mg/mg 10-20 [facility] - Hematology and Cell countsOrdered By: Breanne Ruiz on 08-09-2022 Erythrocyte distribution width (RBC) [Entitic vol] 46.2 fL 35.1-43.9 [facility] Erythrocyte distribution width (RBC) [Ratio] 14.2 % 11.6-14.6 [facility] Immature granulocytes/100 WBC (Bld) 0.600 % 0.0-0.9 [facility] Comment on above: IG% - Immature Granu locytes (promyelocytes, myelocytes and metamyelocytes) > 1% indicates that a LEFT SHIFT is Present. MCH (RBC) [Entitic mass] 26.8 pg 27.0-32.0 [facility] Nucleated RBC/100 WBC (Bld) [Ratio] 0 % 0-5 [facility] MCHC Auto (RBC) [Mass/Vol]Or dered By: Breanne Ruiz on 08-09-2022 MCHC (RBC) [Mass/Vol] 30.0 g/dL 32-[address] [facility] No Panel InformationOrdered By: Breanne Ruiz on 08-09-2022 Estimated GFR (MDRD) Amer 122 mL/min >60 [facility] Comment on above: GFR Calc Estimated GFR (MDRD) Non-Af Amer 101 mL/min >60 [facility] Comment on above: Non- GFR Calc Platelets bldOrdered By: Prashant Ruiz on 08-09-2022 Platelets (Bld) [#/Vol] 463 10*3/uL 150-450 [facility] Serum or plasma calcium jj urement (mass/volume)Ordered By: Breanne Ruiz on 08-09-2022 Calcium [Mass/Vol] 9.5 mg/dL 8.5-10.1 [facility] Serum or plasma creatinine m easurement (mass/volume)Ordered By: Breanne Ruiz on 08-09-2022 Creatinine [Mass/Vol] 0.63 mg/dL 0.55-1.[address] [facility] Comment on above: The validity of the calculated GFR & GFRAA in patients over 70 years has not been determined. Clinical correlation is essential. Serum or plasma urea nitroge n measurement (mass/volume)Ordered By: Breanne Ruiz on 08-09-2022 Urea nitrogen [Mass/Vol] 24 mg/dL 7-18 [facility] Thin prep Papanicolaou smear with manual screeningOrdered By: Breanne Ruiz on 08-09-2022 Thin prep Papanicolaou smear with manual screening 9 5-15 [facility] Absolute lymphocyte countOrd ered By: Breanne Ruiz on 07-26-2022 Lymphocytes Auto (Unsp spec) [#/Vol] 1.12 10*3/uL 0.83-4.51 [facility] Basophil percentageOrdered B y: Breanne Ruiz on 07-26-2022 Basophils/100 WBC (Bld) 1.7 % 0-1 [facility] Chloride [Moles/Vol] 109 mmol/L 98-107 [facility] Eosinophils/100 WBC (Bld) 6.3 % 0-5 [facility] Glucose [Mass/Vol] 110 mg/dL 74-106 [facility] Comment on above: Fasting Glucose resu lt from 100 to 125 mg/dL suggests IMPAIRED HOMEOSTASIS per A.D.A. criteria. Neutrophils (Bld) [#/Vol] 4.2 10*3/uL 2.0-7.7 [facility] Neutrophils/100 WBC (Bld) 62.5 % 47-70 [facility] Potassium [Moles/Vol] 4.1 mmol/L 3.5-5.[address] [facility] Sodium [Moles/Vol] 143 mmol/L 136-145 [facility] WBC (Bld) [#/Vol] 6.6 10*3/uL 4.4-11.0 [facility] Blood erythrocytes count (nu mber/volume)Ordered By: Breanne Ruiz on 07-26-2022 RBC (Bld) [#/Vol] 4.98 10*6/uL 4.2-5.4 [facility] Blood hemoglobin measurement (mass/volume)Ordered By: Breanne Ruiz on 07-26-2022 Hemoglobin (Bld) [Mass/Vol] 13.4 g/dL 12.0-15.0 [facility] Blood lymphocytes/100 leukoc ytesOrdered By: Breanne Ruiz on 07-26-2022 Lymphocytes/100 WBC (Bld) 16.9 % 19-41 [facility] Blood monocytes/100 leukocyt esOrdered By: Breanne Ruiz on 07-26-2022 Monocytes/100 WBC (Bld) 11.5 % 0-10 [facility] Blood platelet mean volumeOr dered By: Breanne Ruiz on 07-26-2022 Platelet mean volume (Bld) [Entitic vol] 8.9 fL 6.2-12.0 [facility] Determination of erythrocyte mean corpuscular volume (MCV)Ordered By: Breanne Ruiz on 07-26-2022 MCV (RBC) [Entitic vol] 90.6 fL 81-99 [facility] Hematocrit Auto (Bld) [Volum e fraction]Ordered By: Breanne Ruiz on 07-26-2022 Hematocrit (Bld) [Volume fraction] 45.1 % 37-47 [facility] - Chemistry and C hemistry - challengeOrdered By: Breanne Ruiz on 07-26-2022 CO2 [Moles/Vol] 25.0 mmol/L 21.0-32.0 [facility] Urea nitrogen/Creatinine [Mass ratio] 48.5 mg/mg 10-20 [facility] - Hematology and Cell countsOrdered By: Breanne Ruiz on 07-26-2022 Erythrocyte distribution width (RBC) [Entitic vol] 48.2 fL 35.1-43.9 [facility] Erythrocyte distribution width (RBC) [Ratio] 14.5 % 11.6-14.6 [facility] Immature granulocytes/100 WBC (Bld) 1.100 % 0.0-0.9 [facility] Comment on above: IG% - Immature Granu locytes (promyelocytes, myelocytes and metamyelocytes) > 1% indicates that a LEFT SHIFT is Present. MCH (RBC) [Entitic mass] 26.9 pg 27.0-32.0 [facility] Nucleated RBC/100 WBC (Bld) [Ratio] 0 % 0-5 [facility] MCHC Auto (RBC) [Mass/Vol]Or dered By: Breanne Ruiz on 07-26-2022 MCHC (RBC) [Mass/Vol] 29.7 g/dL 32-[address] [facility] No Panel InformationOrdered By: Breanne Ruiz on 07-26-2022 Estimated GFR (MDRD) Amer 116 mL/min >60 [facility] Comment on above: GFR Calc Estimated GFR (MDRD) Non-Af Amer 96 mL/min >60 [facility] Comment on above: Non- GFR Calc Platelets bldOrdered By: Prashant Ruiz on 07-26-2022 Platelets (Bld) [#/Vol] 464 10*3/uL 150-450 [facility] Serum or plasma calcium jj urement (mass/volume)Ordered By: Breanne Ruiz on 07-26-2022 Calcium [Mass/Vol] 9.7 mg/dL 8.5-10.1 [facility] Serum or plasma creatinine m easurement (mass/volume)Ordered By: Breanne Ruiz on 07-26-2022 Creatinine [Mass/Vol] 0.66 mg/dL 0.55-1.[address] [facility] Comment on above: The validity of the calculated GFR & GFRAA in patients over 70 years has not been determined. Clinical correlation is essential. Serum or plasma urea nitroge n measurement (mass/volume)Ordered By: Breanne Ruiz on 07-26-2022 Urea nitrogen [Mass/Vol] 32 mg/dL 7-18 [facility] Thin prep Papanicolaou smear with manual screeningOrdered By: Breanne Ruiz on 07-26-2022 Thin prep Papanicolaou smear with manual screening 9 5-15 [facility] Whole blood hemoglobin A1c/t otal hemoglobin ratio (mass fraction)Ordered By: Breanne Ruiz on 07-13-2022 HbA1c (Bld) [Mass fraction] 5.8 % 3.8-5.6 [facility] Comment on above: Normal < 5.7 % Predi abetic 5.7 - 6.4 % Diabetic >or= 6.5 % Please note range changes. Absolute lymphocyte countOrd ered By: Asad Jamison on 07-12-2022 Lymphocytes Auto (Unsp spec) [#/Vol] 1.16 10*3/uL 0.83-4.51 [facility] Basophil percentageOrdered B y: Asad Jamison on 07-12-2022 Basophils/100 WBC (Bld) 1.4 % 0-1 [facility] Chloride [Moles/Vol] 107 mmol/L 98-107 [facility] Eosinophils/100 WBC (Bld) 4.3 % 0-5 [facility] Glucose [Mass/Vol] 148 mg/dL 74-106 [facility] Comment on above: Fasting Glucose resu lt greater than or equal to 126 mg/dL suggests DIABETES MELLITUS per A.D.A. criteria. Neutrophils (Bld) [#/Vol] 5.3 10*3/uL 2.0-7.7 [facility] Neutrophils/100 WBC (Bld) 69.0 % 47-70 [facility] Potassium [Moles/Vol] 3.9 mmol/L 3.5-5.[address] [facility] Sodium [Moles/Vol] 142 mmol/L 136-145 [facility] WBC (Bld) [#/Vol] 7.7 10*3/uL 4.4-11.0 [facility] Blood erythrocytes count (nu mber/volume)Ordered By: Asad Jamison on 07-12-2022 RBC (Bld) [#/Vol] 4.99 10*6/uL 4.2-5.4 [facility] Blood hemoglobin measurement (mass/volume)Ordered By: Asad Jamison on 07-12-2022 Hemoglobin (Bld) [Mass/Vol] 13.4 g/dL 12.0-15.0 [facility] Blood lymphocytes/100 leukoc ytesOrdered By: Asad Jamison on 07-12-2022 Lymphocytes/100 WBC (Bld) 15.0 % 19-41 [facility] Blood monocytes/100 leukocyt esOrdered By: Asad Jamison on 07-12-2022 Monocytes/100 WBC (Bld) 9.8 % 0-10 [facility] Blood platelet mean volumeOr dered By: Asad Jamison on 07-12-2022 Platelet mean volume (Bld) [Entitic vol] 8.6 fL 6.2-12.0 [facility] Determination of erythrocyte mean corpuscular volume (MCV)Ordered By: Asad Jamison on 07-12-2022 MCV (RBC) [Entitic vol] 88.4 fL 81-99 [facility] Hematocrit Auto (Bld) [Volum e fraction]Ordered By: Asad Jamison on 07-12-2022 Hematocrit (Bld) [Volume fraction] 44.1 % 37-47 [facility] - Chemistry and C hemistry - challengeOrdered By: Asad Jamison on 07-12-2022 CO2 [Moles/Vol] 27.0 mmol/L 21.0-32.0 [facility] Urea nitrogen/Creatinine [Mass ratio] 36.2 mg/mg 10-20 [facility] - Hematology and Cell countsOrdered By: Asad Jamison on 07-12-2022 Erythrocyte distribution width (RBC) [Entitic vol] 46.5 fL 35.1-43.9 [facility] Erythrocyte distribution width (RBC) [Ratio] 14.4 % 11.6-14.6 [facility] Immature granulocytes/100 WBC (Bld) 0.500 % 0.0-0.9 [facility] Comment on above: IG% - Immature Granu locytes (promyelocytes, myelocytes and metamyelocytes) > 1% indicates that a LEFT SHIFT is Present. MCH (RBC) [Entitic mass] 26.9 pg 27.0-32.0 [facility] Nucleated RBC/100 WBC (Bld) [Ratio] 0 % 0-5 [facility] MCHC Auto (RBC) [Mass/Vol]Or dered By: Asad Jamison on 07-12-2022 MCHC (RBC) [Mass/Vol] 30.4 g/dL 32-[address] [facility] No Panel InformationOrdered By: Asad Jamison on 07-12-2022 Estimated GFR (MDRD) Amer 101 mL/min >60 [facility] Comment on above: GFR Calc Estimated GFR (MDRD) Non-Af Amer 83 mL/min >60 [facility] Comment on above: Non- GFR Calc Platelets bldOrdered By: Gonzales Jamison on 07-12-2022 Platelets (Bld) [#/Vol] 491 10*3/uL 150-450 [facility] Serum or plasma calcium jj urement (mass/volume)Ordered By: Asad Jamison on 07-12-2022 Calcium [Mass/Vol] 9.7 mg/dL 8.5-10.1 [facility] Serum or plasma creatinine m easurement (mass/volume)Ordered By: Asad Jamison on 07-12-2022 Creatinine [Mass/Vol] 0.74 mg/dL 0.55-1.[address] [facility] Comment on above: The validity of the calculated GFR & GFRAA in patients over 70 years has not been determined. Clinical correlation is essential. Serum or plasma urea nitroge n measurement (mass/volume)Ordered By: Asad Jamison on 07-12-2022 Urea nitrogen [Mass/Vol] 27 mg/dL 7-18 [facility] Thin prep Papanicolaou smear with manual screeningOrdered By: Asad Jamison on 07-12-2022 Thin prep Papanicolaou smear with manual screening 8 5-15 [facility] Absolute lymphocyte countOrd ered By: Asad Jamison on 06-28-2022 Lymphocytes Auto (Unsp spec) [#/Vol] 1.41 10*3/uL 0.83-4.51 [facility] Basophil percentageOrdered B y: Asad Jamison on 06-28-2022 Basophils/100 WBC (Bld) 1.7 % 0-1 [facility] Chloride [Moles/Vol] 108 mmol/L 98-107 [facility] Eosinophils/100 WBC (Bld) 6.8 % 0-5 [facility] Glucose [Mass/Vol] 117 mg/dL 74-106 [facility] Comment on above: Fasting Glucose resu lt from 100 to 125 mg/dL suggests IMPAIRED HOMEOSTASIS per A.D.A. criteria. Neutrophils (Bld) [#/Vol] 3.8 10*3/uL 2.0-7.7 [facility] Neutrophils/100 WBC (Bld) 56.9 % 47-70 [facility] Potassium [Moles/Vol] 4.0 mmol/L 3.5-5.[address] [facility] Sodium [Moles/Vol] 142 mmol/L 136-145 [facility] WBC (Bld) [#/Vol] 6.7 10*3/uL 4.4-11.0 [facility] Blood erythrocytes count (nu mber/volume)Ordered By: Asad Jamison on 06-28-2022 RBC (Bld) [#/Vol] 4.72 10*6/uL 4.2-5.4 [facility] Blood hemoglobin measurement (mass/volume)Ordered By: Asad Jamison on 06-28-2022 Hemoglobin (Bld) [Mass/Vol] 12.8 g/dL 12.0-15.0 [facility] Blood lymphocytes/100 leukoc ytesOrdered By: Asad Jamison on 06-28-2022 Lymphocytes/100 WBC (Bld) 21.2 % 19-41 [facility] Blood monocytes/100 leukocyt esOrdered By: Asad Jamison on 06-28-2022 Monocytes/100 WBC (Bld) 12.5 % 0-10 [facility] Blood platelet mean volumeOr dered By: Asad Jamison on 06-28-2022 Platelet mean volume (Bld) [Entitic vol] 9.0 fL 6.2-12.0 [facility] Determination of erythrocyte mean corpuscular volume (MCV)Ordered By: Asad Jamison on 06-28-2022 MCV (RBC) [Entitic vol] 90.7 fL 81-99 [facility] Hematocrit Auto (Bld) [Volum e fraction]Ordered By: Asad Jamison on 06-28-2022 Hematocrit (Bld) [Volume fraction] 42.8 % 37-47 [facility] - Chemistry and C hemistry - challengeOrdered By: Asad Jamison on 06-28-2022 CO2 [Moles/Vol] 24.0 mmol/L 21.0-32.0 [facility] Urea nitrogen/Creatinine [Mass ratio] 39.1 mg/mg 10-20 [facility] - Hematology and Cell countsOrdered By: Asad Jamison on 06-28-2022 Erythrocyte distribution width (RBC) [Entitic vol] 48.6 fL 35.1-43.9 [facility] Erythrocyte distribution width (RBC) [Ratio] 14.6 % 11.6-14.6 [facility] Immature granulocytes/100 WBC (Bld) 0.900 % 0.0-0.9 [facility] Comment on above: IG% - Immature Granu locytes (promyelocytes, myelocytes and metamyelocytes) > 1% indicates that a LEFT SHIFT is Present. MCH (RBC) [Entitic mass] 27.1 pg 27.0-32.0 [facility] Nucleated RBC/100 WBC (Bld) [Ratio] 0 % 0-5 [facility] MCHC Auto (RBC) [Mass/Vol]Or dered By: Asad Jamison on 06-28-2022 MCHC (RBC) [Mass/Vol] 29.9 g/dL 32-[address] [facility] No Panel InformationOrdered By: Asad Jamison on 06-28-2022 Estimated GFR (MDRD) Amer 115 mL/min >60 [facility] Comment on above: GFR Calc Estimated GFR (MDRD) Non-Af Amer 95 mL/min >60 [facility] Comment on above: Non- GFR Calc Platelets bldOrdered By: Gonzales Jamison on 06-28-2022 Platelets (Bld) [#/Vol] 481 10*3/uL 150-450 [facility] Serum or plasma calcium jj urement (mass/volume)Ordered By: Asad Jamison on 06-28-2022 Calcium [Mass/Vol] 9.4 mg/dL 8.5-10.1 [facility] Serum or plasma creatinine m easurement (mass/volume)Ordered By: Asad Jamison on 06-28-2022 Creatinine [Mass/Vol] 0.66 mg/dL 0.55-1.[address] [facility] Comment on above: The validity of the calculated GFR & GFRAA in patients over 70 years has not been determined. Clinical correlation is essential. Serum or plasma urea nitroge n measurement (mass/volume)Ordered By: Asad Jamison on 06-28-2022 Urea nitrogen [Mass/Vol] 26 mg/dL 7-18 [facility] Thin prep Papanicolaou smear with manual screeningOrdered By: Asad Jamison on 06-28-2022 Thin prep Papanicolaou smear with manual screening 10 5-15 [facility] Absolute lymphocyte countOrd ered By: Asad Jamison on 06-14-2022 Lymphocytes Auto (Unsp spec) [#/Vol] 1.27 10*3/uL 0.83-4.51 [facility] Basophil percentageOrdered B y: Asad Jamison on 06-14-2022 Basophils/100 WBC (Bld) 1.3 % 0-1 [facility] Chloride [Moles/Vol] 111 mmol/L 98-107 [facility] Eosinophils/100 WBC (Bld) 3.9 % 0-5 [facility] Glucose [Mass/Vol] 123 mg/dL 74-106 [facility] Comment on above: Fasting Glucose resu lt from 100 to 125 mg/dL suggests IMPAIRED HOMEOSTASIS per A.D.A. criteria. Neutrophils (Bld) [#/Vol] 4.5 10*3/uL 2.0-7.7 [facility] Neutrophils/100 WBC (Bld) 63.0 % 47-70 [facility] Potassium [Moles/Vol] 4.2 mmol/L 3.5-5.[address] [facility] Sodium [Moles/Vol] 143 mmol/L 136-145 [facility] WBC (Bld) [#/Vol] 7.2 10*3/uL 4.4-11.0 [facility] Blood erythrocytes count (nu mber/volume)Ordered By: Asad Jamison on 06-14-2022 RBC (Bld) [#/Vol] 4.60 10*6/uL 4.2-5.4 [facility] Blood hemoglobin measurement (mass/volume)Ordered By: Asad Jamison on 06-14-2022 Hemoglobin (Bld) [Mass/Vol] 12.8 g/dL 12.0-15.0 [facility] Blood lymphocytes/100 leukoc ytesOrdered By: Asad Jamison on 06-14-2022 Lymphocytes/100 WBC (Bld) 17.7 % 19-41 [facility] Blood monocytes/100 leukocyt esOrdered By: Asad Jamison on 06-14-2022 Monocytes/100 WBC (Bld) 13.4 % 0-10 [facility] Blood platelet mean volumeOr dered By: Asad Jamison on 06-14-2022 Platelet mean volume (Bld) [Entitic vol] 9.0 fL 6.2-12.0 [facility] Determination of erythrocyte mean corpuscular volume (MCV)Ordered By: Asad Jamison on 06-14-2022 MCV (RBC) [Entitic vol] 90.4 fL 81-99 [facility] Hematocrit Auto (Bld) [Volum e fraction]Ordered By: Asad Jamison on 06-14-2022 Hematocrit (Bld) [Volume fraction] 41.6 % 37-47 [facility] - Chemistry and C hemistry - challengeOrdered By: Asad Jamison on 06-14-2022 CO2 [Moles/Vol] 26.0 mmol/L 21.0-32.0 [facility] Urea nitrogen/Creatinine [Mass ratio] 49.2 mg/mg 10-20 [facility] - Hematology and Cell countsOrdered By: Asad Jamison on 06-14-2022 Erythrocyte distribution width (RBC) [Entitic vol] 49.1 fL 35.1-43.9 [facility] Erythrocyte distribution width (RBC) [Ratio] 14.7 % 11.6-14.6 [facility] Immature granulocytes/100 WBC (Bld) 0.700 % 0.0-0.9 [facility] Comment on above: IG% - Immature Granu locytes (promyelocytes, myelocytes and metamyelocytes) > 1% indicates that a LEFT SHIFT is Present. MCH (RBC) [Entitic mass] 27.8 pg 27.0-32.0 [facility] Nucleated RBC/100 WBC (Bld) [Ratio] 0 % 0-5 [facility] MCHC Auto (RBC) [Mass/Vol]Or dered By: Asad Jamison on 06-14-2022 MCHC (RBC) [Mass/Vol] 30.8 g/dL 32-[address] [facility] No Panel InformationOrdered By: Asad Jamison on 06-14-2022 Estimated GFR (MDRD) Amer 118 mL/min >60 [facility] Comment on above: GFR Calc Estimated GFR (MDRD) Non-Af Amer 97 mL/min >60 [facility] Comment on above: Non- GFR Calc Platelets bldOrdered By: Gonzales Jamison on 06-14-2022 Platelets (Bld) [#/Vol] 536 10*3/uL 150-450 [facility] Serum or plasma calcium jj urement (mass/volume)Ordered By: Asad Jamison on 06-14-2022 Calcium [Mass/Vol] 9.5 mg/dL 8.5-10.1 [facility] Serum or plasma creatinine m easurement (mass/volume)Ordered By: Asad Jamison on 06-14-2022 Creatinine [Mass/Vol] 0.65 mg/dL 0.55-1.[address] [facility] Comment on above: The validity of the calculated GFR & GFRAA in patients over 70 years has not been determined. Clinical correlation is essential. Serum or plasma urea nitroge n measurement (mass/volume)Ordered By: Asad Jamison on 06-14-2022 Urea nitrogen [Mass/Vol] 32 mg/dL 7-18 [facility] Thin prep Papanicolaou smear with manual screeningOrdered By: Asad Jamison on 06-14-2022 Thin prep Papanicolaou smear with manual screening 6 5-15 [facility] Basophil percentageOrdered B y: Breanne Ruiz on 06-03-2022 Chloride [Moles/Vol] 106 mmol/L 98-107 [facility] Glucose [Mass/Vol] 116 mg/dL 74-106 [facility] Comment on above: Fasting Glucose resu lt from 100 to 125 mg/dL suggests IMPAIRED HOMEOSTASIS per A.D.A. criteria. Potassium [Moles/Vol] 4.1 mmol/L 3.5-5.[address] [facility] Sodium [Moles/Vol] 139 mmol/L 136-145 [facility] - Chemistry and C hemistry - challengeOrdered By: Breanne Ruiz on 06-03-2022 CO2 [Moles/Vol] 26.0 mmol/L 21.0-32.0 [facility] Urea nitrogen/Creatinine [Mass ratio] 38.7 mg/mg 10- [facility] No Panel InformationOrdered By: Breanne Ruiz on 06-03-2022 Estimated GFR (MDRD) Amer 138 mL/min >60 [facility] Comment on above: GFR Calc Estimated GFR (MDRD) Non-Af Amer 114 mL/min >60 [facility] Comment on above: Non- GFR Calc Serum or plasma calcium jj urement (mass/volume)Ordered By: Breanne Ruiz on 06-03-2022 Calcium [Mass/Vol] 9.7 mg/dL 8.5-10.1 [facility] Serum or plasma creatinine m easurement (mass/volume)Ordered [...] 06-03-2022 Urea nitrogen [Mass/Vol] 22 mg/dL 7-18 [facility] Thin prep Papanicolaou smear with manual screeningOrdered By: adalbertoquincychetan Ruiz on 06-03-2022 Thin prep Papanicolaou smear with manual screening 7 5-15 [facility] Basophil percentageOrdered B y: vannessa Ruiz on 06-01-2022 Potassium [Moles/Vol] 3.9 mmol/L 3.5-5.[address] [facility] Absolute lymphocyte countOrd ered By: Breanne Ruiz on 05-31-2022 Lymphocytes Auto (Unsp spec) [#/Vol] 1.39 10*3/uL 0.83-4.51 [facility] Basophil percentageOrdered B y: Abbiequincychetan Ruiz on 05-31-2022 Basophils/100 WBC (Bld) 1.0 % 0-1 [facility] Chloride [Moles/Vol] 106 mmol/L 98-107 [facility] Eosinophils/100 WBC (Bld) 4.6 % 0-5 [facility] Glucose [Mass/Vol] 74 mg/dL 74-106 [facility] Neutrophils (Bld) [#/Vol] 7.3 10*3/uL 2.0-7.7 [facility] Neutrophils/100 WBC (Bld) 69.9 % 47-70 [facility] Potassium [Moles/Vol] 4.0 mmol/L 3.5-5.[address] [facility] Sodium [Moles/Vol] 141 mmol/L 136-145 [facility] WBC (Bld) [#/Vol] 10.4 10*3/uL 4.4-11.0 [facility] Blood erythrocytes count (nu mber/volume)Ordered By: Breanne Ruiz on 05-31-2022 RBC (Bld) [#/Vol] 4.49 10*6/uL 4.2-5.4 [facility] Blood hemoglobin measurement (mass/volume)Ordered By: Breanne Ruiz on 05-31-2022 Hemoglobin (Bld) [Mass/Vol] 12.5 g/dL 12.0-15.0 [facility] Blood lymphocytes/100 leukoc ytesOrdered By: Breanne Ruiz on 05-31-2022 Lymphocytes/100 WBC (Bld) 13.3 % 19-41 [facility] Blood monocytes/100 leukocyt esOrdered By: vannessa Ruiz on 05-31-2022 Monocytes/100 WBC (Bld) 10.0 % 0-10 [facility] Blood platelet mean volumeOr dered By: Breanne Ruiz on 05-31-2022 Platelet mean volume (Bld) [Entitic vol] 8.8 fL 6.2-12.0 [facility] Culture, urineOrdered By: Elio Ruiz on 05-31-2022 Bacteria identified Cx Nom (U) Escherichia coli [facility] Determination of erythrocyte mean corpuscular volume (MCV)Ordered By: Breanne Ruiz on 05-31-2022 MCV (RBC) [Entitic vol] 91.3 fL 81-99 [facility] Hematocrit Auto (Bld) [Volum e fraction]Ordered By: Breanne Ruiz on 05-31-2022 Hematocrit (Bld) [Volume fraction] 41.0 % 37-47 [facility] - Chemistry and C hemistry - challengeOrdered By: Breanne Ruiz on 05-31-2022 CO2 [Moles/Vol] 25.0 mmol/L 21.0-32.0 [facility] Urea nitrogen/Creatinine [Mass ratio] 43.0 mg/mg 10-20 [facility] - Hematology and Cell countsOrdered By: Breanne Ruiz on 05-31-2022 Erythrocyte distribution width (RBC) [Entitic vol] 49.5 fL 35.1-43.9 [facility] Erythrocyte distribution width (RBC) [Ratio] 14.6 % 11.6-14.6 [facility] Immature granulocytes/100 WBC (Bld) 1.200 % 0.0-0.9 [facility] Comment on above: IG% - Immature Granu locytes (promyelocytes, myelocytes and metamyelocytes) > 1% indicates that a LEFT SHIFT is Present. MCH (RBC) [Entitic mass] 27.8 pg 27.0-32.0 [facility] Nucleated RBC/100 WBC (Bld) [Ratio] 0 % 0-5 [facility] MCHC Auto (RBC) [Mass/Vol]Or dered By: Breanne Ruiz on 05-31-2022 MCHC (RBC) [Mass/Vol] 30.5 g/dL 32-[address] [facility] No Panel InformationOrdered By: Breanne Ruiz on 05-31-2022 Estimated GFR (MDRD) Amer 155 mL/min >60 [facility] Comment on above: GFR Calc Estimated GFR (MDRD) Non-Af Amer 128 mL/min >60 [facility] Comment on above: Non- GFR Calc Platelets bldOrdered By: Prashant Ruiz on 05-31-2022 Platelets (Bld) [#/Vol] 605 10*3/uL 150-450 [facility] Serum or plasma calcium jj urement (mass/volume)Ordered By: Breanne Ruiz on 05-31-2022 Calcium [Mass/Vol] 10.1 mg/dL 8.5-10.1 [facility] Serum or plasma creatinine m easurement (mass/volume)Ordered By: Breanne Ruiz on 05-31-2022 Creatinine [Mass/Vol] 0.51 mg/dL 0.55-1.[address] [facility] Comment on above: The validity of the calculated GFR & GFRAA in patients over 70 years has not been determined. Clinical correlation is essential. Serum or plasma urea nitroge n measurement (mass/volume)Ordered By: Breanne Ruiz on 05-31-2022 Urea nitrogen [Mass/Vol] 22 mg/dL 7-18 [facility] Thin prep Papanicolaou smear with manual screeningOrdered By: Breanne Ruiz on 05-31-2022 Thin prep Papanicolaou smear with manual screening 10 5-15 [facility] Bilirubin Test strip Ql (U)O rdered By: Breanne Ruiz on 05-28-2022 Bilirubin Ql (U) Negative Negative [facility] Ketones Test strip Ql (U)Ord ered By: Breanne Ruiz on 05-28-2022 Ketones Ql (U) Negative Negative [facility] Nitrite Test strip Ql (U)Ord ered By: Breanne Ruiz on 05-28-2022 Nitrite Ql (U) Positive Negative [facility] Protein Test strip Ql (U)Ord ered By: Breanne Ruiz on 05-28-2022 Protein Ql (U) 30 mg/dl Negative [facility] Urine blood detectionOrdered By: Breanne Ruiz on 05-28-2022 RBC Ql (U) 25 /ul Negative [facility] Urine clarityOrdered By: Prashant Ruiz on 05-28-2022 Clarity (U) Cloudy Clear [facility] Urine color determinationOrd ered By: Breanne Ruiz on 05-28-2022 Color (U) Yellow Yellow [facility] Urine glucose detectionOrder ed By: Breanne Ruiz on 05-28-2022 Glucose Ql (U) Normal mg/dl Normal [facility] Urine leukocyte esterase det ection by dipstickOrdered By: Breanne Ruiz on 05-28-2022 Leukocyte esterase Test strip Ql (U) 500 /ul Negative [facility] Urine pHOrdered By: Bhupendra Ruiz on 05-28-2022 pH (U) 5.0 [pH] 5.0 - 8.0 [facility] Urine specific gravity measu rementOrdered By: Breanne Ruiz on 05-28-2022 Specific gravity (U) [Rel density] 1.025 1.002-1.030 [facility] Urobilinogen Auto test strip Ql (U)Ordered By: Breanne Ruiz on 05-28-2022 Urobilinogen Ql (U) Normal mg/dl Normal [facility] Absolute lymphocyte countOrd ered By: Breanne Ruiz on 05-27-2022 Lymphocytes Auto (Unsp spec) [#/Vol] 1.33 10*3/uL 0.83-4.51 [facility] Basophil percentageOrdered B y: Breanne Ruiz on 05-27-2022 Basophils/100 WBC (Bld) 0.4 % 0-1 [facility] Chloride [Moles/Vol] 106 mmol/L 98-107 [facility] Eosinophils/100 WBC (Bld) 0.1 % 0-5 [facility] Glucose [Mass/Vol] 196 mg/dL 74-106 [facility] Comment on above: Fasting Glucose resu lt greater than or equal to 126 mg/dL suggests DIABETES MELLITUS per A.D.A. criteria. Neutrophils (Bld) [#/Vol] 19.9 10*3/uL 2.0-7.7 [facility] Neutrophils/100 WBC (Bld) 85.7 % 47-70 [facility] Potassium [Moles/Vol] 3.3 mmol/L 3.5-5.[address] [facility] Sodium [Moles/Vol] 139 mmol/L 136-145 [facility] WBC (Bld) [#/Vol] 23.2 10*3/uL 4.4-11.0 [facility] Blood erythrocytes count (nu mber/volume)Ordered By: Breanne Ruiz on 05-27-2022 RBC (Bld) [#/Vol] 4.62 10*6/uL 4.2-5.4 [facility] Blood hemoglobin measurement (mass/volume)Ordered By: Breanne Ruiz on 05-27-2022 Hemoglobin (Bld) [Mass/Vol] 12.9 g/dL 12.0-15.0 [facility] Blood lymphocytes/100 leukoc ytesOrdered By: Breanne Ruiz on 05-27-2022 Lymphocytes/100 WBC (Bld) 5.7 % 19-41 [facility] Blood manual differential co mment interpretation (narrative result)Ordered By: Breanne Ruiz on 05-27-2022 Manual differential comment Shaan (Bld) [Interp] COMMENT [facility] Comment on above: MONOCYTOSIS. Blood monocytes/100 leukocyt esOrdered By: Breanne Ruiz on 05-27-2022 Monocytes/100 WBC (Bld) 7.8 % 0-10 [facility] Blood platelet mean volumeOr dered By: Breanne Ruiz on 05-27-2022 Platelet mean volume (Bld) [Entitic vol] 8.6 fL 6.2-12.0 [facility] Determination of erythrocyte mean corpuscular volume (MCV)Ordered By: Breanne Ruiz on 05-27-2022 MCV (RBC) [Entitic vol] 88.1 fL 81-99 [facility] Hematocrit Auto (Bld) [Volum e fraction]Ordered By: Breanne Ruiz on 05-27-2022 Hematocrit (Bld) [Volume fraction] 40.7 % 37-47 [facility] - Chemistry and C hemistry - challengeOrdered By: Abbiequincychetan Ruiz on 05-27-2022 CO2 [Moles/Vol] 22.0 mmol/L 21.0-32.0 [facility] Urea nitrogen/Creatinine [Mass ratio] 23.1 mg/mg 10-20 [facility] - Hematology and Cell countsOrdered By: Breanne Ruiz on 05-27-2022 Erythrocyte distribution width (RBC) [Entitic vol] 48.1 fL 35.1-43.9 [facility] Erythrocyte distribution width (RBC) [Ratio] 14.9 % 11.6-14.6 [facility] Immature granulocytes/100 WBC (Bld) 0.300 % 0.0-0.9 [facility] Comment on above: IG% - Immature Granu locytes (promyelocytes, myelocytes and metamyelocytes) > 1% indicates that a LEFT SHIFT is Present. MCH (RBC) [Entitic mass] 27.9 pg 27.0-32.0 [facility] Nucleated RBC/100 WBC (Bld) [Ratio] 0 % 0-5 [facility] MCHC Auto (RBC) [Mass/Vol]Or dered By: Breanne Ruiz on 05-27-2022 MCHC (RBC) [Mass/Vol] 31.7 g/dL 32-[address] [facility] No Panel InformationOrdered By: Breanne Ruiz on 05-27-2022 Estimated GFR (MDRD) Amer 80 mL/min >60 [facility] Comment on above: GFR Calc Estimated GFR (MDRD) Non-Af Amer 66 mL/min >60 [facility] Comment on above: Non- GFR Calc Troponin I High Sensitivity 7 pg/mL 3.0-54.0 [facility] Comment on above: Please Note: New [place] t Units and Gender Specific Reference Ranges. For more information see Policy Stat Procedure [place] High Sensitivity Troponin (TNIH) and attachments. Platelets bldOrdered By: Prashatn Ruiz on 05-27-2022 Platelets (Bld) [#/Vol] 468 10*3/uL 150-450 [facility] Review by pathologistOrdered By: Breanne Ruiz on 05-27-2022 Pathologist review Shaan (Unsp spec) [Interp] Reviewed [facility] Comment on above: Previous reported re sult: Kori isaacs Edited by: RGOJENNIFER on 05/31/22:1348Neutrophilic leukocytosis.Thrombocytosis.Clinical correlation necessary.Je Browne M.D. 05/31/22 AMENDED REPORT 05/31/22 1348 PATH REV previously reported as: Kori isaacs Serum or plasma calcium jj urement (mass/volume)Ordered By: Breanne Ruiz on 05-27-2022 Calcium [Mass/Vol] 9.4 mg/dL 8.5-10.1 [facility] Serum or plasma creatinine m easurement (mass/volume)Ordered By: Breanne Ruiz on 05-27-2022 Creatinine [Mass/Vol] 0.91 mg/dL 0.55-1.[address] [facility] Comment on above: The validity of the calculated GFR & GFRAA in patients over 70 years has not been determined. Clinical correlation is essential. Serum or plasma urea nitroge n measurement (mass/volume)Ordered By: Breanne Ruiz on 05-27-2022 Urea nitrogen [Mass/Vol] 21 mg/dL 7-18 [facility] Thin prep Papanicolaou smear with manual screeningOrdered By: Breanne Ruiz on 05-27-2022 Thin prep Papanicolaou smear with manual screening 11 5-15 [facility] Absolute lymphocyte countOrd ered By: Breanne Ruiz on 05-17-2022 Lymphocytes Auto (Unsp spec) [#/Vol] 1.57 10*3/uL 0.83-4.51 [facility] Basophil percentageOrdered B y: Breanne Ruiz on 05-17-2022 Basophils/100 WBC (Bld) 1.3 % 0-1 [facility] Chloride [Moles/Vol] 110 mmol/L 98-107 [facility] Eosinophils/100 WBC (Bld) 5.6 % 0-5 [facility] Glucose [Mass/Vol] 109 mg/dL 74-106 [facility] Comment on above: Fasting Glucose resu lt from 100 to 125 mg/dL suggests IMPAIRED HOMEOSTASIS per A.D.A. criteria. Neutrophils (Bld) [#/Vol] 4.6 10*3/uL 2.0-7.7 [facility] Neutrophils/100 WBC (Bld) 60.7 % 47-70 [facility] Potassium [Moles/Vol] 4.0 mmol/L 3.5-5.[address] [facility] Sodium [Moles/Vol] 144 mmol/L 136-145 [facility] WBC (Bld) [#/Vol] 7.6 10*3/uL 4.4-11.0 [facility] Blood erythrocytes count (nu mber/volume)Ordered By: Breanne Ruiz on 05-17-2022 RBC (Bld) [#/Vol] 4.79 10*6/uL 4.2-5.4 [facility] Blood hemoglobin measurement (mass/volume)Ordered By: Breanne Ruiz on 05-17-2022 Hemoglobin (Bld) [Mass/Vol] 13.0 g/dL 12.0-15.0 [facility] Blood lymphocytes/100 leukoc ytesOrdered By: Breanne Ruiz on 05-17-2022 Lymphocytes/100 WBC (Bld) 20.8 % 19-41 [facility] Blood monocytes/100 leukocyt esOrdered By: Breanne Ruiz on 05-17-2022 Monocytes/100 WBC (Bld) 11.2 % 0-10 [facility] Blood platelet mean volumeOr dered By: Breanne Ruiz on 05-17-2022 Platelet mean volume (Bld) [Entitic vol] 9.2 fL 6.2-12.0 [facility] Determination of erythrocyte mean corpuscular volume (MCV)Ordered By: Breanne Ruiz on 05-17-2022 MCV (RBC) [Entitic vol] 91.4 fL 81-99 [facility] Hematocrit Auto (Bld) [Volum e fraction]Ordered By: Breanne Ruiz on 05-17-2022 Hematocrit (Bld) [Volume fraction] 43.8 % 37-47 [facility] - Chemistry and C hemistry - challengeOrdered By: Breanne Ruiz on 05-17-2022 CO2 [Moles/Vol] 26.0 mmol/L 21.0-32.0 [facility] Urea nitrogen/Creatinine [Mass ratio] 45.3 mg/mg 10-20 [facility] - Hematology and Cell countsOrdered By: Breanne Ruiz on 05-17-2022 Erythrocyte distribution width (RBC) [Entitic vol] 50.4 fL 35.1-43.9 [facility] Erythrocyte distribution width (RBC) [Ratio] 15.0 % 11.6-14.6 [facility] Immature granulocytes/100 WBC (Bld) 0.400 % 0.0-0.9 [facility] Comment on above: IG% - Immature Granu locytes (promyelocytes, myelocytes and metamyelocytes) > 1% indicates that a LEFT SHIFT is Present. MCH (RBC) [Entitic mass] 27.1 pg 27.0-32.0 [facility] Nucleated RBC/100 WBC (Bld) [Ratio] 0 % 0-5 [facility] MCHC Auto (RBC) [Mass/Vol]Or dered By: Breanne Ruiz on 05-17-2022 MCHC (RBC) [Mass/Vol] 29.7 g/dL 32-[address] [facility] No Panel InformationOrdered By: Breanne Ruiz on 05-17-2022 Estimated GFR (MDRD) Amer 116 mL/min >60 [facility] Comment on above: GFR Calc Estimated GFR (MDRD) Non-Af Amer 95 mL/min >60 [facility] Comment on above: Non- GFR Calc Platelets bldOrdered By: Prashantbeverly marsh Sara on 05-17-2022 Platelets (Bld) [#/Vol] 503 10*3/uL 150-450 [facility] Serum or plasma calcium jj urement (mass/volume)Ordered By: Breanne Ruiz on 05-17-2022 Calcium [Mass/Vol] 9.7 mg/dL 8.5-10.1 [facility] Serum or plasma creatinine m easurement (mass/volume)Ordered By: Breanne Ruiz on 05-17-2022 Creatinine [Mass/Vol] 0.66 mg/dL 0.55-1.[address] [facility] Comment on above: The validity of the calculated GFR & GFRAA in patients over 70 years has not been determined. Clinical correlation is essential. Serum or plasma urea nitroge n measurement (mass/volume)Ordered By: Abbiequincychetan Ruiz on 05-17-2022 Urea nitrogen [Mass/Vol] 30 mg/dL 7-18 [facility] Thin prep Papanicolaou smear with manual screeningOrdered By: Breanne Ruiz on 05-17-2022 Thin prep Papanicolaou smear with manual screening 8 5-15 [facility] Absolute lymphocyte countOrd ered By: Asad Jamison on 05-03-2022 Lymphocytes Auto (Unsp spec) [#/Vol] 1.95 10*3/uL 0.83-4.51 [facility] Basophil percentageOrdered B y: Asad Jamison on 05-03-2022 Basophils/100 WBC (Bld) 0.9 % 0-1 [facility] Chloride [Moles/Vol] 103 mmol/L 98-107 [facility] Eosinophils/100 WBC (Bld) 3.9 % 0-5 [facility] Glucose [Mass/Vol] 100 mg/dL 74-106 [facility] Comment on above: Fasting Glucose resu lt from 100 to 125 mg/dL suggests IMPAIRED HOMEOSTASIS per A.D.A. criteria. Neutrophils (Bld) [#/Vol] 6.6 10*3/uL 2.0-7.7 [facility] Neutrophils/100 WBC (Bld) 66.2 % 47-70 [facility] Potassium [Moles/Vol] 4.1 mmol/L 3.5-5.[address] [facility] Comment on above: Moderate Hemolysis, Result may be falsely increased. Sodium [Moles/Vol] 139 mmol/L 136-145 [facility] WBC (Bld) [#/Vol] 10.0 10*3/uL 4.4-11.0 [facility] Blood erythrocytes count (nu mber/volume)Ordered By: Asad Jamison on 05-03-2022 RBC (Bld) [#/Vol] 4.77 10*6/uL 4.2-5.4 [facility] Blood hemoglobin measurement (mass/volume)Ordered By: Asad Jamison on 05-03-2022 Hemoglobin (Bld) [Mass/Vol] 13.2 g/dL 12.0-15.0 [facility] Blood lymphocytes/100 leukoc ytesOrdered By: Asad Jamison on 05-03-2022 Lymphocytes/100 WBC (Bld) 19.5 % 19-41 [facility] Blood monocytes/100 leukocyt esOrdered By: Asad Jamison on 05-03-2022 Monocytes/100 WBC (Bld) 8.9 % 0-10 [facility] Blood platelet mean volumeOr dered By: Asad Jamison on 05-03-2022 Platelet mean volume (Bld) [Entitic vol] 8.9 fL 6.2-12.0 [facility] Determination of erythrocyte mean corpuscular volume (MCV)Ordered By: Asad Jamison on 05-03-2022 MCV (RBC) [Entitic vol] 88.5 fL 81-99 [facility] Hematocrit Auto (Bld) [Volum e fraction]Ordered By: Asad Jamison on 05-03-2022 Hematocrit (Bld) [Volume fraction] 42.2 % 37-47 [facility] - Chemistry and C hemistry - challengeOrdered By: Asad Jamison on 05-03-2022 CO2 [Moles/Vol] 25.0 mmol/L 21.0-32.0 [facility] Urea nitrogen/Creatinine [Mass ratio] 48.2 mg/mg 10-20 [facility] - Hematology and Cell countsOrdered By: Asad Jamison on 05-03-2022 Erythrocyte distribution width (RBC) [Entitic vol] 48.7 fL 35.1-43.9 [facility] Erythrocyte distribution width (RBC) [Ratio] 15.0 % 11.6-14.6 [facility] Immature granulocytes/100 WBC (Bld) 0.600 % 0.0-0.9 [facility] Comment on above: IG% - Immature Granu locytes (promyelocytes, myelocytes and metamyelocytes) > 1% indicates that a LEFT SHIFT is Present. MCH (RBC) [Entitic mass] 27.7 pg 27.0-32.0 [facility] Nucleated RBC/100 WBC (Bld) [Ratio] 0 % 0-5 [facility] MCHC Auto (RBC) [Mass/Vol]Or dered By: Asad Jamison on 05-03-2022 MCHC (RBC) [Mass/Vol] 31.3 g/dL 32-[address] [facility] No Panel InformationOrdered By: Asad Jamison on 05-03-2022 Estimated GFR (MDRD) Amer 129 mL/min >60 [facility] Comment on above: GFR Calc Estimated GFR (MDRD) Non-Af Amer 107 mL/min >60 [facility] Comment on above: Non- GFR Calc Platelets bldOrdered By: Gonzales Jamison on 05-03-2022 Platelets (Bld) [#/Vol] 488 10*3/uL 150-450 [facility] Serum or plasma calcium jj urement (mass/volume)Ordered By: Asad Jamison on 05-03-2022 Calcium [Mass/Vol] 9.4 mg/dL 8.5-10.1 [facility] Serum or plasma creatinine m easurement (mass/volume)Ordered By: Asad Jamison on 05-03-2022 Creatinine [Mass/Vol] 0.60 mg/dL 0.55-1.[address] [facility] Comment on above: The validity of the calculated GFR & GFRAA in patients over 70 years has not been determined. Clinical correlation is essential. Serum or plasma urea nitroge n measurement (mass/volume)Ordered By: Asad Jamison on 05-03-2022 Urea nitrogen [Mass/Vol] 29 mg/dL 7-18 [facility] Thin prep Papanicolaou smear with manual screeningOrdered By: Asad Jamison on 05-03-2022 Thin prep Papanicolaou smear with manual screening 11 -15 [facility] Absolute lymphocyte countOrd ered By: Asad Jamison on 04-19-2022 Lymphocytes Auto (Unsp spec) [#/Vol] 1.80 10*3/uL 0.83-4.51 [facility] Basophil percentageOrdered B y: Asad Jamison on 04-19-2022 Basophils/100 WBC (Bld) 1.0 % 0-1 [facility] Chloride [Moles/Vol] 106 mmol/L 98-107 [facility] Eosinophils/100 WBC (Bld) 3.6 % 0-5 [facility] Glucose [Mass/Vol] 107 mg/dL 74-106 [facility] Comment on above: Fasting Glucose resu lt from 100 to 125 mg/dL suggests IMPAIRED HOMEOSTASIS per A.D.A. criteria. Neutrophils (Bld) [#/Vol] 4.6 10*3/uL 2.0-7.7 [facility] Neutrophils/100 WBC (Bld) 59.3 % 47-70 [facility] Potassium [Moles/Vol] 4.1 mmol/L 3.5-5.[address] [facility] Sodium [Moles/Vol] 140 mmol/L 136-145 [facility] WBC (Bld) [#/Vol] 7.8 10*3/uL 4.4-11.0 [facility] Blood erythrocytes count (nu mber/volume)Ordered By: Asad Jamison on 04-19-2022 RBC (Bld) [#/Vol] 4.98 10*6/uL 4.2-5.4 [facility] Blood hemoglobin measurement (mass/volume)Ordered By: Asad Jamison on 04-19-2022 Hemoglobin (Bld) [Mass/Vol] 13.1 g/dL 12.0-15.0 [facility] Blood lymphocytes/100 leukoc ytesOrdered By: Asad Jamison on 04-19-2022 Lymphocytes/100 WBC (Bld) 23.1 % 19-41 [facility] Blood monocytes/100 leukocyt esOrdered By: Asad Jamison on 04-19-2022 Monocytes/100 WBC (Bld) 12.1 % 0-10 [facility] Blood platelet mean volumeOr dered By: Asad Jamison on 04-19-2022 Platelet mean volume (Bld) [Entitic vol] 8.9 fL 6.2-12.0 [facility] Determination of erythrocyte mean corpuscular volume (MCV)Ordered By: Asad Jamison on 04-19-2022 MCV (RBC) [Entitic vol] 88.0 fL 81-99 [facility] Hematocrit Auto (Bld) [Volum e fraction]Ordered By: Asad Jamison on 04-19-2022 Hematocrit (Bld) [Volume fraction] 43.8 % 37-47 [facility] - Chemistry and C hemistry - challengeOrdered By: Asad Jamison on 04-19-2022 CO2 [Moles/Vol] 27.0 mmol/L 21.0-32.0 [facility] Urea nitrogen/Creatinine [Mass ratio] 43.6 mg/mg 10-20 [facility] - Hematology and Cell countsOrdered By: Asad Jamison on 04-19-2022 Erythrocyte distribution width (RBC) [Entitic vol] 48.2 fL 35.1-43.9 [facility] Erythrocyte distribution width (RBC) [Ratio] 15.0 % 11.6-14.6 [facility] Immature granulocytes/100 WBC (Bld) 0.900 % 0.0-0.9 [facility] Comment on above: IG% - Immature Granu locytes (promyelocytes, myelocytes and metamyelocytes) > 1% indicates that a LEFT SHIFT is Present. MCH (RBC) [Entitic mass] 26.3 pg 27.0-32.0 [facility] Nucleated RBC/100 WBC (Bld) [Ratio] 0 % 0-5 [facility] MCHC Auto (RBC) [Mass/Vol]Or dered By: Asad Jamison on 04-19-2022 MCHC (RBC) [Mass/Vol] 29.9 g/dL 32-[address] [facility] No Panel InformationOrdered By: Asad Jamison on 04-19-2022 Estimated GFR (MDRD) Amer 130 mL/min >60 [facility] Comment on above: GFR Calc Estimated GFR (MDRD) Non-Af Amer 108 mL/min >60 [facility] Comment on above: Non- GFR Calc Platelets bldOrdered By: Gonzales Jamison on 04-19-2022 Platelets (Bld) [#/Vol] 534 10*3/uL 150-450 [facility] Serum or plasma calcium jj urement (mass/volume)Ordered By: Asad Jamison on 04-19-2022 Calcium [Mass/Vol] 9.6 mg/dL 8.5-10.1 [facility] Serum or plasma creatinine m easurement (mass/volume)Ordered By: Asad Jamison on 04-19-2022 Creatinine [Mass/Vol] 0.60 mg/dL 0.55-1.[address] [facility] Comment on above: The validity of the calculated GFR & GFRAA in patients over 70 years has not been determined. Clinical correlation is essential. Serum or plasma urea nitroge n measurement (mass/volume)Ordered By: Asad Jamison on 04-19-2022 Urea nitrogen [Mass/Vol] 26 mg/dL 7-18 [facility] Thin prep Papanicolaou smear with manual screeningOrdered By: Asad Jamison on 04-19-2022 Thin prep Papanicolaou smear with manual screening 7 5-15 [facility] Absolute lymphocyte countOrd ered By: Asad Jamison on 04-05-2022 Lymphocytes Auto (Unsp spec) [#/Vol] 1.31 10*3/uL 0.83-4.51 [facility] Basophil percentageOrdered B y: Asad Jamison on 04-05-2022 Basophils/100 WBC (Bld) 1.0 % 0-1 [facility] Chloride [Moles/Vol] 108 mmol/L 98-107 [facility] Eosinophils/100 WBC (Bld) 3.6 % 0-5 [facility] Glucose [Mass/Vol] 105 mg/dL 74-106 [facility] Comment on above: Fasting Glucose resu lt from 100 to 125 mg/dL suggests IMPAIRED HOMEOSTASIS per A.D.A. criteria. Neutrophils (Bld) [#/Vol] 6.1 10*3/uL 2.0-7.7 [facility] Neutrophils/100 WBC (Bld) 68.9 % 47-70 [facility] Potassium [Moles/Vol] 4.0 mmol/L 3.5-5.[address] [facility] Sodium [Moles/Vol] 141 mmol/L 136-145 [facility] WBC (Bld) [#/Vol] 8.9 10*3/uL 4.4-11.0 [facility] Blood erythrocytes count (nu mber/volume)Ordered By: Asad Jamison on 04-05-2022 RBC (Bld) [#/Vol] 4.79 10*6/uL 4.2-5.4 [facility] Blood hemoglobin measurement (mass/volume)Ordered By: Asad Jamison on 04-05-2022 Hemoglobin (Bld) [Mass/Vol] 13.0 g/dL 12.0-15.0 [facility] Blood lymphocytes/100 leukoc ytesOrdered By: Asad Jamison on 04-05-2022 Lymphocytes/100 WBC (Bld) 14.7 % 19-41 [facility] Blood monocytes/100 leukocyt esOrdered By: Asad Jamison on 04-05-2022 Monocytes/100 WBC (Bld) 11.4 % 0-10 [facility] Blood platelet mean volumeOr dered By: Asad Jamison on 04-05-2022 Platelet mean volume (Bld) [Entitic vol] 8.7 fL 6.2-12.0 [facility] Determination of erythrocyte mean corpuscular volume (MCV)Ordered By: Asad Jamison on 04-05-2022 MCV (RBC) [Entitic vol] 87.9 fL 81-99 [facility] Hematocrit Auto (Bld) [Volum e fraction]Ordered By: Asad Jamison on 04-05-2022 Hematocrit (Bld) [Volume fraction] 42.1 % 37-47 [facility] - Chemistry and C hemistry - challengeOrdered By: Asad Jamison on 04-05-2022 CO2 [Moles/Vol] 27.0 mmol/L 21.0-32.0 [facility] Urea nitrogen/Creatinine [Mass ratio] 44.3 mg/mg 10-20 [facility] - Hematology and Cell countsOrdered By: Asad Jamison on 04-05-2022 Erythrocyte distribution width (RBC) [Entitic vol] 49.4 fL 35.1-43.9 [facility] Erythrocyte distribution width (RBC) [Ratio] 15.3 % 11.6-14.6 [facility] Immature granulocytes/100 WBC (Bld) 0.400 % 0.0-0.9 [facility] Comment on above: IG% - Immature Granu locytes (promyelocytes, myelocytes and metamyelocytes) > 1% indicates that a LEFT SHIFT is Present. MCH (RBC) [Entitic mass] 27.1 pg 27.0-32.0 [facility] Nucleated RBC/100 WBC (Bld) [Ratio] 0 % 0-5 [facility] MCHC Auto (RBC) [Mass/Vol]Or dered By: Asad Jamison on 04-05-2022 MCHC (RBC) [Mass/Vol] 30.9 g/dL 32-[address] [facility] No Panel InformationOrdered By: Asad Jamison on 04-05-2022 Estimated GFR (MDRD) Amer 127 mL/min >60 [facility] Comment on above: GFR Calc Estimated GFR (MDRD) Non-Af Amer 105 mL/min >60 [facility] Comment on above: Non- GFR Calc Platelets bldOrdered By: Gonzales Jamison on 04-05-2022 Platelets (Bld) [#/Vol] 516 10*3/uL 150-450 [facility] Serum or plasma calcium jj urement (mass/volume)Ordered By: Asad Jamison on 04-05-2022 Calcium [Mass/Vol] 9.6 mg/dL 8.5-10.1 [facility] Serum or plasma creatinine m easurement (mass/volume)Ordered By: Asad Jamison on 04-05-2022 Creatinine [Mass/Vol] 0.61 mg/dL 0.55-1.[address] [facility] Comment on above: The validity of the calculated GFR & GFRAA in patients over 70 years has not been determined. Clinical correlation is essential. Serum or plasma urea nitroge n measurement (mass/volume)Ordered By: Asad Jamison on 04-05-2022 Urea nitrogen [Mass/Vol] 27 mg/dL 7-18 [facility] Thin prep Papanicolaou smear with manual screeningOrdered By: Aasd Jamison on 04-05-2022 Thin prep Papanicolaou smear with manual screening 6 5-15 [facility] Absolute lymphocyte countOrd ered By: Asad Jamison on 03-22-2022 Lymphocytes Auto (Unsp spec) [#/Vol] 1.60 10*3/uL 0.83-4.51 [facility] Basophil percentageOrdered B y: Asad Jamison on 03-22-2022 Basophils/100 WBC (Bld) 1.1 % 0-1 [facility] Chloride [Moles/Vol] 108 mmol/L 98-107 [facility] Eosinophils/100 WBC (Bld) 2.9 % 0-5 [facility] Glucose [Mass/Vol] 96 mg/dL 74-106 [facility] Neutrophils (Bld) [#/Vol] 5.1 10*3/uL 2.0-7.7 [facility] Neutrophils/100 WBC (Bld) 65.2 % 47-70 [facility] Potassium [Moles/Vol] 4.1 mmol/L 3.5-5.[address] [facility] Sodium [Moles/Vol] 142 mmol/L 136-145 [facility] WBC (Bld) [#/Vol] 7.9 10*3/uL 4.4-11.0 [facility] Blood erythrocytes count (nu mber/volume)Ordered By: Asad Jamison on 03-22-2022 RBC (Bld) [#/Vol] 4.84 10*6/uL 4.2-5.4 [facility] Blood hemoglobin measurement (mass/volume)Ordered By: Asad Jamison on 03-22-2022 Hemoglobin (Bld) [Mass/Vol] 13.1 g/dL 12.0-15.0 [facility] Blood lymphocytes/100 leukoc ytesOrdered By: Asad Jamison on 03-22-2022 Lymphocytes/100 WBC (Bld) 20.3 % 19-41 [facility] Blood monocytes/100 leukocyt esOrdered By: Asad Jamison on 03-22-2022 Monocytes/100 WBC (Bld) 10.2 % 0-10 [facility] Blood platelet mean volumeOr dered By: Asad Jamison on 03-22-2022 Platelet mean volume (Bld) [Entitic vol] 9.1 fL 6.2-12.0 [facility] Determination of erythrocyte mean corpuscular volume (MCV)Ordered By: Asad Jamison on 03-22-2022 MCV (RBC) [Entitic vol] 87.8 fL 81-99 [facility] Hematocrit Auto (Bld) [Volum e fraction]Ordered By: Asad Jamison on 03-22-2022 Hematocrit (Bld) [Volume fraction] 42.5 % 37-47 [facility] - Chemistry and C hemistry - challengeOrdered By: Asad Jamison on 03-22-2022 CO2 [Moles/Vol] 26.0 mmol/L 21.0-32.0 [facility] Urea nitrogen/Creatinine [Mass ratio] 34.4 mg/mg 10-20 [facility] - Hematology and Cell countsOrdered By: Asad Jamison on 03-22-2022 Erythrocyte distribution width (RBC) [Entitic vol] 48.4 fL 35.1-43.9 [facility] Erythrocyte distribution width (RBC) [Ratio] 15.0 % 11.6-14.6 [facility] Immature granulocytes/100 WBC (Bld) 0.300 % 0.0-0.9 [facility] Comment on above: IG% - Immature Granu locytes (promyelocytes, myelocytes and metamyelocytes) > 1% indicates that a LEFT SHIFT is Present. MCH (RBC) [Entitic mass] 27.1 pg 27.0-32.0 [facility] Nucleated RBC/100 WBC (Bld) [Ratio] 0 % 0-5 [facility] MCHC Auto (RBC) [Mass/Vol]Or dered By: Asad Jamison on 03-22-2022 MCHC (RBC) [Mass/Vol] 30.8 g/dL 32-[address] [facility] No Panel InformationOrdered By: Asad Jamison on 03-22-2022 Estimated GFR (MDRD) Amer 120 mL/min >60 [facility] Comment on above: GFR Calc Estimated GFR (MDRD) Non-Af Amer 99 mL/min >60 [facility] Comment on above: Non- GFR Calc Platelets bldOrdered By: Gonzales Jamison on 03-22-2022 Platelets (Bld) [#/Vol] 522 10*3/uL 150-450 [facility] Serum or plasma calcium jj urement (mass/volume)Ordered By: Asad Jamison on 03-22-2022 Calcium [Mass/Vol] 9.4 mg/dL 8.5-10.1 [facility] Serum or plasma creatinine m easurement (mass/volume)Ordered By: Asad Jamison on 03-22-2022 Creatinine [Mass/Vol] 0.64 mg/dL 0.55-1.[address] [facility] Comment on above: The validity of the calculated GFR & GFRAA in patients over 70 years has not been determined. Clinical correlation is essential. Serum or plasma urea nitroge n measurement (mass/volume)Ordered By: Asad Jamison on 03-22-2022 Urea nitrogen [Mass/Vol] 22 mg/dL 7-18 [facility] Thin prep Papanicolaou smear with manual screeningOrdered By: Asad Jamison on 03-22-2022 Thin prep Papanicolaou smear with manual screening 8 5-15 [facility] Absolute lymphocyte countOrd ered By: Asad Jamison on 03-08-2022 Lymphocytes Auto (Unsp spec) [#/Vol] 1.49 10*3/uL 0.83-4.51 [facility] Basophil percentageOrdered B y: Asad Jamison on 03-08-2022 Basophils/100 WBC (Bld) 1.3 % 0-1 [facility] Chloride [Moles/Vol] 108 mmol/L 98-107 [facility] Eosinophils/100 WBC (Bld) 3.9 % 0-5 [facility] Glucose [Mass/Vol] 105 mg/dL 74-106 [facility] Comment on above: Fasting Glucose resu lt from 100 to 125 mg/dL suggests IMPAIRED HOMEOSTASIS per A.D.A. criteria. Neutrophils (Bld) [#/Vol] 4.3 10*3/uL 2.0-7.7 [facility] Neutrophils/100 WBC (Bld) 61.3 % 47-70 [facility] Potassium [Moles/Vol] 4.1 mmol/L 3.5-5.[address] [facility] Sodium [Moles/Vol] 142 mmol/L 136-145 [facility] WBC (Bld) [#/Vol] 7.1 10*3/uL 4.4-11.0 [facility] Blood erythrocytes count (nu mber/volume)Ordered By: Asad Jamison on 03-08-2022 RBC (Bld) [#/Vol] 4.87 10*6/uL 4.2-5.4 [facility] Blood hemoglobin measurement (mass/volume)Ordered By: Asad Jamison on 03-08-2022 Hemoglobin (Bld) [Mass/Vol] 13.0 g/dL 12.0-15.0 [facility] Blood lymphocytes/100 leukoc ytesOrdered By: Asad Jamison on 03-08-2022 Lymphocytes/100 WBC (Bld) 21.0 % 19-41 [facility] Blood monocytes/100 leukocyt esOrdered By: Asad Jamison on 03-08-2022 Monocytes/100 WBC (Bld) 12.1 % 0-10 [facility] Blood platelet mean volumeOr dered By: Asad Jamison on 03-08-2022 Platelet mean volume (Bld) [Entitic vol] 8.9 fL 6.2-12.0 [facility] Determination of erythrocyte mean corpuscular volume (MCV)Ordered By: Asad Jamison on 03-08-2022 MCV (RBC) [Entitic vol] 87.9 fL 81-99 [facility] Hematocrit Auto (Bld) [Volum e fraction]Ordered By: Asad Jamison on 03-08-2022 Hematocrit (Bld) [Volume fraction] 42.8 % 37-47 [facility] - Chemistry and C hemistry - challengeOrdered By: Asad Jamison on 03-08-2022 CO2 [Moles/Vol] 27.0 mmol/L 21.0-32.0 [facility] Urea nitrogen/Creatinine [Mass ratio] 47.1 mg/mg 10-20 [facility] - Hematology and Cell countsOrdered By: Asad Jamison on 03-08-2022 Erythrocyte distribution width (RBC) [Entitic vol] 47.6 fL 35.1-43.9 [facility] Erythrocyte distribution width (RBC) [Ratio] 14.8 % 11.6-14.6 [facility] Immature granulocytes/100 WBC (Bld) 0.400 % 0.0-0.9 [facility] Comment on above: IG% - Immature Granu locytes (promyelocytes, myelocytes and metamyelocytes) > 1% indicates that a LEFT SHIFT is Present. MCH (RBC) [Entitic mass] 26.7 pg 27.0-32.0 [facility] Nucleated RBC/100 WBC (Bld) [Ratio] 0 % 0-5 [facility] MCHC Auto (RBC) [Mass/Vol]Or dered By: Asad Jamison on 03-08-2022 MCHC (RBC) [Mass/Vol] 30.4 g/dL 32-[address] [facility] No Panel InformationOrdered By: Asad Jamison on 03-08-2022 Estimated GFR (MDRD) Amer 131 mL/min >60 [facility] Comment on above: GFR Calc Estimated GFR (MDRD) Non-Af Amer 108 mL/min >60 [facility] Comment on above: Non- GFR Calc Platelets bldOrdered By: Gonzales Jamison on 03-08-2022 Platelets (Bld) [#/Vol] 521 10*3/uL 150-450 [facility] Serum or plasma calcium jj urement (mass/volume)Ordered By: Asad Jamison on 03-08-2022 Calcium [Mass/Vol] 9.5 mg/dL 8.5-10.1 [facility] Serum or plasma creatinine m easurement (mass/volume)Ordered By: Asad Jamison on 03-08-2022 Creatinine [Mass/Vol] 0.59 mg/dL 0.55-1.[address] [facility] Comment on above: The validity of the calculated GFR & GFRAA in patients over 70 years has not been determined. Clinical correlation is essential. Serum or plasma urea nitroge n measurement (mass/volume)Ordered By: Asad Jamison on 03-08-2022 Urea nitrogen [Mass/Vol] 28 mg/dL 7-18 [facility] Thin prep Papanicolaou smear with manual screeningOrdered By: Asad Jamison on 03-08-2022 Thin prep Papanicolaou smear with manual screening 7 5-15 [facility] Absolute lymphocyte countOrd ered By: Asad Jamison on 02-22-2022 Lymphocytes Auto (Unsp spec) [#/Vol] 1.48 10*3/uL 0.83-4.51 [facility] Basophil percentageOrdered B y: Asad Jamison on 02-22-2022 Basophils/100 WBC (Bld) 1.2 % 0-1 [facility] Chloride [Moles/Vol] 109 mmol/L 98-107 [facility] Eosinophils/100 WBC (Bld) 5.9 % 0-5 [facility] Glucose [Mass/Vol] 103 mg/dL 74-106 [facility] Comment on above: Fasting Glucose resu lt from 100 to 125 mg/dL suggests IMPAIRED HOMEOSTASIS per A.D.A. criteria. Neutrophils (Bld) [#/Vol] 4.1 10*3/uL 2.0-7.7 [facility] Neutrophils/100 WBC (Bld) 58.7 % 47-70 [facility] Potassium [Moles/Vol] 4.3 mmol/L 3.5-5.[address] [facility] Sodium [Moles/Vol] 143 mmol/L 136-145 [facility] WBC (Bld) [#/Vol] 6.9 10*3/uL 4.4-11.0 [facility] Blood erythrocytes count (nu mber/volume)Ordered By: Asad Jamison on 02-22-2022 RBC (Bld) [#/Vol] 4.90 10*6/uL 4.2-5.4 [facility] Blood hemoglobin measurement (mass/volume)Ordered By: Asad Jamison on 02-22-2022 Hemoglobin (Bld) [Mass/Vol] 13.1 g/dL 12.0-15.0 [facility] Blood lymphocytes/100 leukoc ytesOrdered By: Asad Jamison on 02-22-2022 Lymphocytes/100 WBC (Bld) 21.4 % 19-41 [facility] Blood monocytes/100 leukocyt esOrdered By: Asad Jamison on 02-22-2022 Monocytes/100 WBC (Bld) 12.4 % 0-10 [facility] Blood platelet mean volumeOr dered By: Asad Jamison on 02-22-2022 Platelet mean volume (Bld) [Entitic vol] 9.0 fL 6.2-12.0 [facility] Determination of erythrocyte mean corpuscular volume (MCV)Ordered By: Asad Jamison on 02-22-2022 MCV (RBC) [Entitic vol] 88.2 fL 81-99 [facility] Hematocrit Auto (Bld) [Volum e fraction]Ordered By: Asad Jamison on 02-22-2022 Hematocrit (Bld) [Volume fraction] 43.2 % 37-47 [facility] Laboratory - Chemistry and C hemistry - challengeOrdered By: Asad Jamison on 02-22-2022 CO2 [Moles/Vol] 25.0 mmol/L 21.0-32.0 [facility] Urea nitrogen/Creatinine [Mass ratio] 48.9 mg/mg - [facility] - Hematology and Cell countsOrdered By: Asad Jamison on 02-22-2022 Erythrocyte distribution width (RBC) [Entitic vol] 48.8 fL 35.1-43.9 [facility] Erythrocyte distribution width (RBC) [Ratio] 15.1 % 11.6-14.6 [facility] Immature granulocytes/100 WBC (Bld) 0.400 % 0.0-0.9 [facility] Comment on above: IG% - Immature Granu locytes (promyelocytes, myelocytes and metamyelocytes) > 1% indicates that a LEFT SHIFT is Present. MCH (RBC) [Entitic mass] 26.7 pg 27.0-32.0 [facility] Nucleated RBC/100 WBC (Bld) [Ratio] 0 % 0-5 [facility] MCHC Auto (RBC) [Mass/Vol]Or dered By: Asad Jamison on 02-22-2022 MCHC (RBC) [Mass/Vol] 30.3 g/dL 32-[address] [facility] No Panel InformationOrdered By: Asad Jamison on 02-22-2022 Estimated GFR (MDRD) Amer 126 mL/min >60 [facility] Comment on above: GFR Calc Estimated GFR (MDRD) Non-Af Amer 104 mL/min >60 [facility] Comment on above: Non- GFR Calc Platelets bldOrdered By: Gonzales Jamison on 02-22-2022 Platelets (Bld) [#/Vol] 492 10*3/uL 150-450 [facility] Serum or plasma calcium jj urement (mass/volume)Ordered By: Asad Jamison on 02-22-2022 Calcium [Mass/Vol] 9.7 mg/dL 8.5-10.1 [facility] Serum or plasma creatinine m easurement (mass/volume)Ordered By: Asad Jamison on 02-22-2022 Creatinine [Mass/Vol] 0.61 mg/dL 0.55-1.[address] [facility] Comment on above: The validity of the calculated GFR & GFRAA in patients over 70 years has not been determined. Clinical correlation is essential. Serum or plasma urea nitroge n measurement (mass/volume)Ordered By: Asad Jamison on 02-22-2022 Urea nitrogen [Mass/Vol] 30 mg/dL 7-18 [facility] Thin prep Papanicolaou smear with manual screeningOrdered By: Asad Jamison on 02-22-2022 Thin prep Papanicolaou smear with manual screening 9 5-15 [facility] Absolute lymphocyte counton 02-08-2022 Lymphocytes Auto (Unsp spec) [#/Vol] 1.37 10*3/uL 0.83-4.51 [facility] Work Phone: Basophil percentageon 2021 Basophils/100 WBC (Bld) 1.3 % 0-1 [facility] Work Phone: Chloride [Moles/Vol] 109 mmol/L 98-107 [facility] Work Phone: Eosinophils/100 WBC (Bld) 4.0 % 0-5 [facility] Work Phone: Glucose [Mass/Vol] 99 mg/dL 74-106 [facility] Work Phone: Neutrophils (Bld) [#/Vol] 4.1 10*3/uL 2.0-7.7 [facility] Work Phone: Neutrophils/100 WBC (Bld) 59.3 % 47-70 [facility] Work Phone: Potassium [Moles/Vol] 4.1 mmol/L 3.5-5.[address] [facility] Work Phone: Sodium [Moles/Vol] 143 mmol/L 136-145 [facility] Work Phone: WBC (Bld) [#/Vol] 7.0 10*3/uL 4.4-11.0 [facility] Work Phone: Blood erythrocytes count (nu mber/volume)on 02-08-2022 RBC (Bld) [#/Vol] 5.00 10*6/uL 4.2-5.4 [facility] Work Phone: Blood hemoglobin measurement (mass/volume)on 02-08-2022 Hemoglobin (Bld) [Mass/Vol] 13.0 g/dL 12.0-15.0 [facility] Work Phone: Blood lymphocytes/100 leukoc yteson 02-08-2022 Lymphocytes/100 WBC (Bld) 19.7 % 19-41 [facility] Work Phone: [phone] Blood monocytes/100 leukocyt eson 02-08-2022 Monocytes/100 WBC (Bld) 15.4 % 0-10 [facility] Work Phone: [phone] Blood platelet mean volumeon 02-08-2022 Platelet mean volume (Bld) [Entitic vol] 8.6 fL 6.2-12.0 [facility] Work Phone: Determination of erythrocyte mean corpuscular volume (MCV)on 02-08-2022 MCV (RBC) [Entitic vol] 92.4 fL 81-99 [facility] Work Phone: [phone] Hematocrit Auto (Bld) [Volum e fraction]on 02-08-2022 Hematocrit (Bld) [Volume fraction] 46.2 % 37-47 [facility] Work Phone: Laboratory - Chemistry and C hemistry - challengeon 02-08-2022 CO2 [Moles/Vol] 24.0 mmol/L 21.0-32.0 [facility] Work Phone: Urea nitrogen/Creatinine [Mass ratio] 38.5 mg/mg 10-20 [facility] Work Phone: [phone] Laboratory - Hematology and Cell countson 02-08-2022 Erythrocyte distribution width (RBC) [Entitic vol] 51.8 fL 35.1-43.9 [facility] Work Phone: [phone] Erythrocyte distribution width (RBC) [Ratio] 15.3 % 11.6-14.6 [facility] Work Phone: [phone] Immature granulocytes/100 WBC (Bld) 0.300 % 0.0-0.9 [facility] Work Phone: Comment on above: IG% - Immature Granu locytes (promyelocytes, myelocytes and metamyelocytes) > 1% indicates that a LEFT SHIFT is Present. MCH (RBC) [Entitic mass] 26.0 pg 27.0-32.0 [facility] Work Phone: Nucleated RBC/100 WBC (Bld) [Ratio] 0 % 0-5 [facility] Work Phone: MCHC Auto (RBC) [Mass/Vol]on 02-08-2022 MCHC (RBC) [Mass/Vol] 28.1 g/dL 32-[address] [facility] Work Phone: No Panel Informationon 02-08 Estimated GFR (MDRD) Amer 118 mL/min >60 [facility] Work Phone: Comment on above: GFR Calc Estimated GFR (MDRD) Non-Af Amer 98 mL/min >60 [facility] Work Phone: Comment on above: Non- GFR Calc Platelets bldon 02-08-2022 Platelets (Bld) [#/Vol] 504 10*3/uL 150-450 [facility] Work Phone: [phone] Serum or plasma calcium jj urement (mass/volume)on 02-08-2022 Calcium [Mass/Vol] 10.0 mg/dL 8.5-10.1 [facility] Work Phone: Serum or plasma creatinine m easurement (mass/volume)on 02-08-2022 Creatinine [Mass/Vol] 0.65 mg/dL 0.55-1.[address] [facility] Work Phone: Comment on above: The validity of the calculated GFR & GFRAA in patients over 70 years has not been determined. Clinical correlation is essential. Serum or plasma urea nitroge n measurement (mass/volume)on 02-08-2022 Urea nitrogen [Mass/Vol] 25 mg/dL 7-18 [facility] Work Phone: [phone] Thin prep Papanicolaou smear with manual screeningon 02-08-2022 Thin prep Papanicolaou smear with manual screening 10 5-15 [facility] Work Phone: [phone] Absolute lymphocyte counton 01-25-2022 Lymphocytes Auto (Unsp spec) [#/Vol] 1.61 10*3/uL 0.83-4.51 [facility] Work Phone: Basophil percentageon 2021 Basophils/100 WBC (Bld) 1.6 % 0-1 [facility] Work Phone: Chloride [Moles/Vol] 110 mmol/L 98-107 [facility] Work Phone: Eosinophils/100 WBC (Bld) 3.6 % 0-5 [facility] Work Phone: Glucose [Mass/Vol] 109 mg/dL 74-106 [facility] Work Phone: Comment on above: Fasting Glucose resu lt from 100 to 125 mg/dL suggests IMPAIRED HOMEOSTASIS per A.D.A. criteria. Neutrophils (Bld) [#/Vol] 3.8 10*3/uL 2.0-7.7 [facility] Work Phone: Neutrophils/100 WBC (Bld) 55.5 % 47-70 [facility] Work Phone: Potassium [Moles/Vol] 4.0 mmol/L 3.5-5.1 [facility] Work Phone: Sodium [Moles/Vol] 142 mmol/L 136-145 [facility] Work Phone: WBC (Bld) [#/Vol] 6.9 10*3/uL 4.4-11.0 [facility] Work Phone: Blood erythrocytes count (nu mber/volume)on 01-25-2022 RBC (Bld) [#/Vol] 4.66 10*6/uL 4.2-5.4 [facility] Work Phone: Blood hemoglobin measurement (mass/volume)on 01-25-2022 Hemoglobin (Bld) [Mass/Vol] 12.5 g/dL 12.0-15.0 [facility] Work Phone: Blood lymphocytes/100 leukoc yteson 08-23-2022 Lymphocytes/100 WBC (Bld) 23.4 % 19-41 [facility] Work Phone: Blood monocytes/100 leukocyt eson 01-25-2022 Monocytes/100 WBC (Bld) 15.3 % 0-10 [facility] Work Phone: Blood platelet mean volumeon 01-25-2022 Platelet mean volume (Bld) [Entitic vol] 9.0 fL 6.2-12.0 [facility] Work Phone: Determination of erythrocyte mean corpuscular volume (MCV)on 01-25-2022 MCV (RBC) [Entitic vol] 88.6 fL 81-99 [facility] Work Phone: [phone] Hematocrit Auto (Bld) [Volum e fraction]on 01-25-2022 Hematocrit (Bld) [Volume fraction] 41.3 % 37-47 [facility] Work Phone: Laboratory - Chemistry and C hemistry - challengeon 01-25-2022 CO2 [Moles/Vol] 23.0 mmol/L 21.0-32.0 [facility] Work Phone: Urea nitrogen/Creatinine [Mass ratio] 38.3 mg/mg 10-20 [facility] Work Phone: Laboratory - Hematology and Cell countson 01-25-2022 Erythrocyte distribution width (RBC) [Entitic vol] 49.9 fL 35.1-43.9 [facility] Work Phone: [phone] Erythrocyte distribution width (RBC) [Ratio] 15.4 % 11.6-14.6 [facility] Work Phone: Immature granulocytes/100 WBC (Bld) 0.600 % 0.0-0.9 [facility] Work Phone: [phone] Comment on above: IG% - Immature Granu locytes (promyelocytes, myelocytes and metamyelocytes) > 1% indicates that a LEFT SHIFT is Present. MCH (RBC) [Entitic mass] 26.8 pg 27.0-32.0 [facility] Work Phone: Nucleated RBC/100 WBC (Bld) [Ratio] 0 % 0-5 [facility] Work Phone: MCHC Auto (RBC) [Mass/Vol]on 01-25-2022 MCHC (RBC) [Mass/Vol] 30.3 g/dL 32-[address] [facility] Work Phone: No Panel Informationon 01-25 Estimated GFR (MDRD) Amer 103 mL/min >60 [facility] Work Phone: Comment on above: GFR Calc Estimated GFR (MDRD) Non-Af Amer 85 mL/min >60 [facility] Work Phone: Comment on above: Non- GFR Calc Platelets bldon 01-25-2022 Platelets (Bld) [#/Vol] 513 10*3/uL 150-450 [facility] Work Phone: Serum or plasma calcium jj urement (mass/volume)on 01-25-2022 Calcium [Mass/Vol] 9.6 mg/dL 8.5-10.1 [facility] Work Phone: Serum or plasma creatinine m easurement (mass/volume)on 01-25-2022 Creatinine [Mass/Vol] 0.73 mg/dL 0.55-1.[address] [facility] Work Phone: Comment on above: The validity of the calculated GFR & GFRAA in patients over 70 years has not been determined. Clinical correlation is essential. Serum or plasma urea nitroge n measurement (mass/volume)on 01-25-2022 Urea nitrogen [Mass/Vol] 28 mg/dL 7-18 [facility] Work Phone: Thin prep Papanicolaou smear with manual screeningon 01-25-2022 Thin prep Papanicolaou smear with manual screening 9 5-15 [facility] Work Phone: Absolute lymphocyte counton 01-11-2022 Lymphocytes Auto (Unsp spec) [#/Vol] 1.57 10*3/uL 0.83-4.51 [facility] Work Phone: Basophil percentageon 2021 Basophils/100 WBC (Bld) 1.3 % 0-1 [facility] Work Phone: Chloride [Moles/Vol] 107 mmol/L 98-107 [facility] Work Phone: Eosinophils/100 WBC (Bld) 4.7 % 0-5 [facility] Work Phone: Glucose [Mass/Vol] 89 mg/dL 74-106 [facility] Work Phone: Neutrophils (Bld) [#/Vol] 3.5 10*3/uL 2.0-7.7 [facility] Work Phone: Neutrophils/100 WBC (Bld) 56.0 % 47-70 [facility] Work Phone: Potassium [Moles/Vol] 4.0 mmol/L 3.5-5.[address] [facility] Work Phone: Sodium [Moles/Vol] 139 mmol/L 136-145 [facility] Work Phone: WBC (Bld) [#/Vol] 6.3 10*3/uL 4.4-11.0 [facility] Work Phone: Blood erythrocytes count (nu mber/volume)on 01-11-2022 RBC (Bld) [#/Vol] 4.71 10*6/uL 4.2-5.4 [facility] Work Phone: Blood hemoglobin measurement (mass/volume)on 01-11-2022 Hemoglobin (Bld) [Mass/Vol] 12.4 g/dL 12.0-15.0 [facility] Work Phone: Blood lymphocytes/100 leukoc yteson 01-11-2022 Lymphocytes/100 WBC (Bld) 24.8 % 19-41 [facility] Work Phone: Blood monocytes/100 leukocyt eson 01-11-2022 Monocytes/100 WBC (Bld) 12.7 % 0-10 [facility] Work Phone: Blood platelet mean volumeon 01-11-2022 Platelet mean volume (Bld) [Entitic vol] 8.8 fL 6.2-12.0 [facility] Work Phone: [phone] Determination of erythrocyte mean corpuscular volume (MCV)on 01-11-2022 MCV (RBC) [Entitic vol] 89.2 fL 81-99 [facility] Work Phone: [phone] Hematocrit Auto (Bld) [Volum e fraction]on 01-11-2022 Hematocrit (Bld) [Volume fraction] 42.0 % 37-47 [facility] Work Phone: [phone] Laboratory - Chemistry and C hemistry - challengeon 01-11-2022 CO2 [Moles/Vol] 26.0 mmol/L 21.0-32.0 [facility] Work Phone: [phone] Urea nitrogen/Creatinine [Mass ratio] 45.6 mg/mg 10-20 [facility] Work Phone: [phone] Laboratory - Hematology and Cell countson 01-11-2022 Erythrocyte distribution width (RBC) [Entitic vol] 51.2 fL 35.1-43.9 [facility] Work Phone: [phone] Erythrocyte distribution width (RBC) [Ratio] 15.6 % 11.6-14.6 [facility] Work Phone: [phone] Immature granulocytes/100 WBC (Bld) 0.500 % 0.0-0.9 [facility] Work Phone: [phone] Comment on above: IG% - Immature Granu locytes (promyelocytes, myelocytes and metamyelocytes) > 1% indicates that a LEFT SHIFT is Present. MCH (RBC) [Entitic mass] 26.3 pg 27.0-32.0 [facility] Work Phone: [phone] Nucleated RBC/100 WBC (Bld) [Ratio] 0 % 0-5 [facility] Work Phone: [phone] MCHC Auto (RBC) [Mass/Vol]on 01-11-2022 MCHC (RBC) [Mass/Vol] 29.5 g/dL 32-36 [facility] Work Phone: No Panel Informationon 01-11 Estimated GFR (MDRD) Amer 158 mL/min >60 [facility] Work Phone: Comment on above: GFR Calc Estimated GFR (MDRD) Non-Af Amer 131 mL/min >60 [facility] Work Phone: Comment on above: Non- GFR Calc Platelets bldon 01-11-2022 Platelets (Bld) [#/Vol] 496 10*3/uL 150-450 [facility] Work Phone: Serum or plasma calcium jj urement (mass/volume)on 01-11-2022 Calcium [Mass/Vol] 9.7 mg/dL 8.5-10.1 [facility] Work Phone: Serum or plasma creatinine m easurement (mass/volume)on 01-11-2022 Creatinine [Mass/Vol] 0.50 mg/dL 0.55-1.[address] [facility] Work Phone: Comment on above: The validity of the calculated GFR & GFRAA in patients over 70 years has not been determined. Clinical correlation is essential. Serum or plasma urea nitroge n measurement (mass/volume)on 01-11-2022 Urea nitrogen [Mass/Vol] 23 mg/dL 7-18 [facility] Work Phone: Thin prep Papanicolaou smear with manual screeningon 01-11-2022 Thin prep Papanicolaou smear with manual screening 6 5-15 [facility] Work Phone: Absolute lymphocyte counton 12-28-2021 Lymphocytes Auto (Unsp spec) [#/Vol] 1.56 10*3/uL 0.83-4.51 [facility] Work Phone: Basophil percentageon 2021 Basophils/100 WBC (Bld) 1.1 % 0-1 [facility] Work Phone: Chloride [Moles/Vol] 106 mmol/L 98-107 [facility] Work Phone: Eosinophils/100 WBC (Bld) 3.4 % 0-5 [facility] Work Phone: Glucose [Mass/Vol] 93 mg/dL 74-106 [facility] Work Phone: Neutrophils (Bld) [#/Vol] 4.3 10*3/uL 2.0-7.7 [facility] Work Phone: Neutrophils/100 WBC (Bld) 61.0 % 47-70 [facility] Work Phone: Potassium [Moles/Vol] 3.7 mmol/L 3.5-5.[address] [facility] Work Phone: Sodium [Moles/Vol] 139 mmol/L 136-145 [facility] Work Phone: WBC (Bld) [#/Vol] 7.0 10*3/uL 4.4-11.0 [facility] Work Phone: Blood erythrocytes count (nu mber/volume)on 12-28-2021 RBC (Bld) [#/Vol] 4.69 10*6/uL 4.2-5.4 [facility] Work Phone: Blood hemoglobin measurement (mass/volume)on 12-28-2021 Hemoglobin (Bld) [Mass/Vol] 12.6 g/dL 12.0-15.0 [facility] Work Phone: Blood lymphocytes/100 leukoc yteson 12-28-2021 Lymphocytes/100 WBC (Bld) 22.2 % 19-41 [facility] Work Phone: Blood monocytes/100 leukocyt eson 12-28-2021 Monocytes/100 WBC (Bld) 11.6 % 0-10 [facility] Work Phone: Blood platelet mean volumeon 12-28-2021 Platelet mean volume (Bld) [Entitic vol] 8.5 fL 6.2-12.0 [facility] Work Phone: Determination of erythrocyte mean corpuscular volume (MCV)on 12-28-2021 MCV (RBC) [Entitic vol] 90.2 fL 81-99 [facility] Work Phone: [phone] Hematocrit Auto (Bld) [Volum e fraction]on 12-28-2021 Hematocrit (Bld) [Volume fraction] 42.3 % 37-47 [facility] Work Phone: [phone] Laboratory - Chemistry and C hemistry - challengeon 12-28-2021 CO2 [Moles/Vol] 26.0 mmol/L 21.0-32.0 [facility] Work Phone: [phone] Urea nitrogen/Creatinine [Mass ratio] 34.9 mg/mg 10-20 [facility] Work Phone: [phone] Laboratory - Hematology and Cell countson 12-28-2021 Erythrocyte distribution width (RBC) [Entitic vol] 51.9 fL 35.1-43.9 [facility] Work Phone: [phone] Erythrocyte distribution width (RBC) [Ratio] 15.9 % 11.6-14.6 [facility] Work Phone: [phone] Immature granulocytes/100 WBC (Bld) 0.700 % 0.0-0.9 [facility] Work Phone: [phone] Comment on above: IG% - Immature Granu locytes (promyelocytes, myelocytes and metamyelocytes) > 1% indicates that a LEFT SHIFT is Present. MCH (RBC) [Entitic mass] 26.9 pg 27.0-32.0 [facility] Work Phone: [phone] Nucleated RBC/100 WBC (Bld) [Ratio] 0 % 0-5 [facility] Work Phone: [phone] MCHC Auto (RBC) [Mass/Vol]on 12-28-2021 MCHC (RBC) [Mass/Vol] 29.8 g/dL 32-36 [facility] Work Phone: [phone] No Panel Informationon 12-28 Estimated GFR (MDRD) Amer 129 mL/min >60 [facility] Work Phone: [phone] Comment on above: GFR Calc Estimated GFR (MDRD) Non-Af Amer 107 mL/min >60 [facility] Work Phone: Comment on above: Non- GFR Calc Platelets bldon 12-28-2021 Platelets (Bld) [#/Vol] 574 10*3/uL 150-450 [facility] Work Phone: Serum or plasma calcium jj urement (mass/volume)on 12-28-2021 Calcium [Mass/Vol] 9.7 mg/dL 8.5-10.1 [facility] Work Phone: Serum or plasma creatinine m easurement (mass/volume)on 12-28-2021 Creatinine [Mass/Vol] 0.60 mg/dL 0.55-1.[address] [facility] Work Phone: Comment on above: The validity of the calculated GFR & GFRAA in patients over 70 years has not been determined. Clinical correlation is essential. Serum or plasma urea nitroge n measurement (mass/volume)on 12-28-2021 Urea nitrogen [Mass/Vol] 21 mg/dL 7-18 [facility] Work Phone: Thin prep Papanicolaou smear with manual screeningon 12-28-2021 Thin prep Papanicolaou smear with manual screening 7 5-15 [facility] Work Phone: Absolute lymphocyte counton 12-14-2021 Lymphocytes Auto (Unsp spec) [#/Vol] 1.34 10*3/uL 0.83-4.51 [facility] Work Phone: Basophil percentageon 2021 Basophils/100 WBC (Bld) 1.1 % 0-1 [facility] Work Phone: Chloride [Moles/Vol] 106 mmol/L 98-107 [facility] Work Phone: Eosinophils/100 WBC (Bld) 2.3 % 0-5 [facility] Work Phone: Glucose [Mass/Vol] 94 mg/dL 74-106 [facility] Work Phone: Neutrophils (Bld) [#/Vol] 6.7 10*3/uL 2.0-7.7 [facility] Work Phone: Neutrophils/100 WBC (Bld) 70.8 % 47-70 [facility] Work Phone: Potassium [Moles/Vol] 3.6 mmol/L 3.5-5.1 [facility] Work Phone: Sodium [Moles/Vol] 143 mmol/L 136-145 [facility] Work Phone: WBC (Bld) [#/Vol] 9.4 10*3/uL 4.4-11.0 [facility] Work Phone: Blood erythrocytes count (nu mber/volume)on 12-14-2021 RBC (Bld) [#/Vol] 4.55 10*6/uL 4.2-5.4 [facility]: Blood hemoglobin measurement (mass/volume)on 12-14-2021 Hemoglobin (Bld) [Mass/Vol] 11.9 g/dL 12.0-15.0 [facility] Work Phone: Blood lymphocytes/100 leukoc yteson 12-14-2021 Lymphocytes/100 WBC (Bld) 14.2 % 19-41 [facility] Work Phone: Blood monocytes/100 leukocyt eson 12-14-2021 Monocytes/100 WBC (Bld) 11.0 % 0-10 [facility] Work Phone: Blood platelet mean volumeon 12-14-2021 Platelet mean volume (Bld) [Entitic vol] 9.0 fL 6.2-12.0 [facility] Work Phone: Determination of erythrocyte mean corpuscular volume (MCV)on 12-14-2021 MCV (RBC) [Entitic vol] 90.1 fL 81-99 [facility] Work Phone: Hematocrit Auto (Bld) [Volum e fraction]on 12-14-2021 Hematocrit (Bld) [Volume fraction] 41.0 % 37-47 [facility] Work Phone: [phone] Laboratory - Chemistry and C hemistry - challengeon 12-14-2021 CO2 [Moles/Vol] 30.0 mmol/L 21.0-32.0 [facility] Work Phone: [phone] Urea nitrogen/Creatinine [Mass ratio] 40.1 mg/mg 10-20 [facility] Work Phone: [phone] Laboratory - Hematology and Cell countson 12-14-2021 Erythrocyte distribution width (RBC) [Entitic vol] 53.1 fL 35.1-43.9 [facility] Work Phone: [phone] Erythrocyte distribution width (RBC) [Ratio] 15.9 % 11.6-14.6 [facility] Work Phone: [phone] Immature granulocytes/100 WBC (Bld) 0.600 % 0.0-0.9 [facility] Work Phone: [phone] Comment on above: IG% - Immature Granu locytes (promyelocytes, myelocytes and metamyelocytes) > 1% indicates that a LEFT SHIFT is Present. MCH (RBC) [Entitic mass] 26.2 pg 27.0-32.0 [facility] Work Phone: [phone] Nucleated RBC/100 WBC (Bld) [Ratio] 0 % 0-5 [facility] Work Phone: [phone] MCHC Auto (RBC) [Mass/Vol]on 12-14-2021 MCHC (RBC) [Mass/Vol] 29.0 g/dL 32-[address] [facility] Work Phone: [phone] Panel Informationon 12-14 Estimated GFR (MDRD) Amer 144 mL/min >60 [facility] Work Phone: [phone] Comment on above: GFR Calc Estimated GFR (MDRD) Non-Af Amer 119 mL/min >60 [facility] Work Phone: [phone] Comment on above: Non- GFR Calc Platelets bldon 12-14-2021 Platelets (Bld) [#/Vol] 567 10*3/uL 150-450 [facility] Work Phone: Serum or plasma calcium jj urement (mass/volume)on 12-14-2021 Calcium [Mass/Vol] 9.6 mg/dL 8.5-10.1 [facility] Work Phone: Serum or plasma creatinine m easurement (mass/volume)on 12-14-2021 Creatinine [Mass/Vol] 0.55 mg/dL 0.55-1.[address] [facility] Work Phone: Comment on above: The validity of the calculated GFR & GFRAA in patients over 70 years has not been determined. Clinical correlation is essential. Serum or plasma urea nitroge n measurement (mass/volume)on 12-14-2021 Urea nitrogen [Mass/Vol] 22 mg/dL 7-18 [facility] Work Phone: Thin prep Papanicolaou smear with manual screeningon 12-14-2021 Thin prep Papanicolaou smear with manual screening 7 5-15 [facility] Work Phone: Absolute lymphocyte counton 11-16-2021 Lymphocytes Auto (Unsp spec) [#/Vol] 1.38 10*3/uL 0.83-4.51 [facility] Work Phone: Basophil percentageon 2021 Basophils/100 WBC (Bld) 1.1 % 0-1 [facility] Work Phone: Chloride [Moles/Vol] 106 mmol/L 98-107 [facility] Work Phone: Eosinophils/100 WBC (Bld) 3.7 % 0-5 [facility] Work Phone: Glucose [Mass/Vol] 100 mg/dL 74-106 [facility] Work Phone: Comment on above: Fasting Glucose resu lt from 100 to 125 mg/dL suggests IMPAIRED HOMEOSTASIS per A.D.A. criteria. Neutrophils (Bld) [#/Vol] 4.5 10*3/uL 2.0-7.7 [facility] Work Phone: Neutrophils/100 WBC (Bld) 61.9 % 47-70 [facility] Work Phone: Potassium [Moles/Vol] 3.7 mmol/L 3.5-5.1 [facility] Work [facility]: Sodium [Moles/Vol] 142 mmol/L 136-145 [facility] Work Phone: [phone] WBC (Bld) [#/Vol] 7.3 10*3/uL 4.4-11.0 [facility] Work Phone: [phone] Blood erythrocytes count (nu mber/volume)on 11-16-2021 RBC (Bld) [#/Vol] 4.38 10*6/uL 4.2-5.4 [facility] Work Phone: Blood hemoglobin measurement (mass/volume)on 11-16-2021 Hemoglobin (Bld) [Mass/Vol] 11.6 g/dL 12.0-15.0 [facility] Work Phone: [phone] Blood lymphocytes/100 leukoc yteson 11-16-2021 Lymphocytes/100 WBC (Bld) 18.9 % 19-41 [facility] Work Phone: Blood monocytes/100 leukocyt eson 11-16-2021 Monocytes/100 WBC (Bld) 13.0 % 0-10 [facility] Work Phone: Blood platelet mean volumeon 11-16-2021 Platelet mean volume (Bld) [Entitic vol] 8.5 fL 6.2-12.0 [facility] Work Phone: Determination of erythrocyte mean corpuscular volume (MCV)on 11-16-2021 MCV (RBC) [Entitic vol] 90.6 fL 81-99 [facility] Work Phone: Hematocrit Auto (Bld) [Volum e fraction]on 11-16-2021 Hematocrit (Bld) [Volume fraction] 39.7 % 37-47 [facility] Work Phone: Laboratory - Chemistry and C hemistry - challengeon 11-16-2021 CO2 [Moles/Vol] 30.0 mmol/L 21.0-32.0 [facility] Work Phone: [phone] Urea nitrogen/Creatinine [Mass ratio] 23.4 mg/mg 10-20 [facility] Work Phone: [phone] Laboratory - Hematology and Cell countson 11-16-2021 Erythrocyte distribution width (RBC) [Entitic vol] 54.2 fL 35.1-43.9 [facility] Work Phone: [phone] Erythrocyte distribution width (RBC) [Ratio] 16.2 % 11.6-14.6 [facility] Work Phone: [phone] Immature granulocytes/100 WBC (Bld) 1.400 % 0.0-0.9 [facility] Work Phone: [phone] Comment on above: IG% - Immature Granu locytes (promyelocytes, myelocytes and metamyelocytes) > 1% indicates that a LEFT SHIFT is Present. MCH (RBC) [Entitic mass] 26.5 pg 27.0-32.0 [facility] Work Phone: [phone] Nucleated RBC/100 WBC (Bld) [Ratio] 0 % 0-5 [facility] Work Phone: [phone] MCHC Auto (RBC) [Mass/Vol]on 11-16-2021 MCHC (RBC) [Mass/Vol] 29.2 g/dL 32-[address] [facility] Work Phone: No Panel Informationon 11-16 Estimated GFR (MDRD) Amer 142 mL/min >60 [facility] Work Phone: [phone] Comment on above: GFR Calc Estimated GFR (MDRD) Non-Af Amer 117 mL/min >60 [facility] Work Phone: [phone] Comment on above: Non- GFR Calc Platelets bldon 11-16-2021 Platelets (Bld) [#/Vol] 584 10*3/uL 150-450 [facility] Work Phone: [phone] Serum or plasma calcium jj urement (mass/volume)on 11-16-2021 Calcium [Mass/Vol] 9.4 mg/dL 8.5-10.1 [facility] Work Phone: Serum or plasma creatinine m easurement (mass/volume)on 11-16-2021 Creatinine [Mass/Vol] 0.56 mg/dL 0.55-1.[address] [facility] Work Phone: Comment on above: The validity of the calculated GFR & GFRAA in patients over 70 years has not been determined. Clinical correlation is essential. Serum or plasma urea nitroge n measurement (mass/volume)on 11-16-2021 Urea nitrogen [Mass/Vol] 13 mg/dL 7-18 [facility] Work Phone: Thin prep Papanicolaou smear with manual screeningon 11-16-2021 Thin prep Papanicolaou smear with manual screening 6 -15 [facility] Work Phone: Absolute lymphocyte counton 11-02-2021 Lymphocytes Auto (Unsp spec) [#/Vol] 1.38 10*3/uL 0.83-4.51 [facility] Work Phone: Basophil percentageon 2021 Basophils/100 WBC (Bld) 1.1 % 0-1 [facility] Work Phone: Chloride [Moles/Vol] 100 mmol/L 98-107 [facility] Work Phone: Eosinophils/100 WBC (Bld) 4.3 % 0-5 [facility] Work Phone: Glucose [Mass/Vol] 78 mg/dL 74-106 [facility] Work Phone: Neutrophils (Bld) [#/Vol] 6.8 10*3/uL 2.0-7.7 [facility] Work Phone: Neutrophils/100 WBC (Bld) 69.5 % 47-70 [facility] Work Phone: Potassium [Moles/Vol] 3.5 mmol/L 3.5-5.[address] [facility] Work Phone: Sodium [Moles/Vol] 138 mmol/L 136-145 [facility] Work Phone: [phone] WBC (Bld) [#/Vol] 9.8 10*3/uL 4.4-11.0 [facility] Work Phone: [phone] Blood erythrocytes count (nu mber/volume)on 11-02-2021 RBC (Bld) [#/Vol] 4.58 10*6/uL [facility].2[facility]: [phone] Blood hemoglobin measurement (mass/volume)on 11-02-2021 Hemoglobin (Bld) [Mass/Vol] 12.2 g/dL 12.0-15.0 [facility] Work Phone: [phone] Blood lymphocytes/100 leukoc yteson 11-02-2021 Lymphocytes/100 WBC (Bld) 14.1 % 19-41 [facility] Work Phone: [phone] Blood monocytes/100 leukocyt eson 11-02-2021 Monocytes/100 WBC (Bld) 9.1 % 0-10 [facility] Work Phone: [phone] Blood platelet mean volumeon 11-02-2021 Platelet mean volume (Bld) [Entitic vol] 8.2 fL 6.2-12.0 [facility] Work Phone: [phone] Determination of erythrocyte mean corpuscular volume (MCV)on 11-02-2021 MCV (RBC) [Entitic vol] 90.2 fL 81-99 [facility] Work Phone: [phone] Hematocrit Auto (Bld) [Volum e fraction]on 11-02-2021 Hematocrit (Bld) [Volume fraction] 41.3 % 37-47 [facility] Work Phone: [phone] Laboratory - Chemistry and C hemistry - challengeon 11-02-2021 CO2 [Moles/Vol] 31.0 mmol/L 21.0-32.0 [facility] Work Phone: [phone] Urea nitrogen/Creatinine [Mass ratio] 35.8 mg/mg 10-20 [facility] Work Phone: [phone] Laboratory - Hematology and Cell countson 11-02-2021 Erythrocyte distribution width (RBC) [Entitic vol] 51.6 fL 35.1-43.9 [facility] Work Phone: [phone] Erythrocyte distribution width (RBC) [Ratio] 15.7 % 11.6-14.6 [facility] Work Phone: [phone] Immature granulocytes/100 WBC (Bld) 1.900 % 0.0-0.9 [facility] Work Phone: [phone] Comment on above: IG% - Immature Granu locytes (promyelocytes, myelocytes and metamyelocytes) > 1% indicates that a LEFT SHIFT is Present. MCH (RBC) [Entitic mass] 26.6 pg 27.0-32.0 [facility] Work Phone: [phone] Nucleated RBC/100 WBC (Bld) [Ratio] 0 % 0-5 [facility] Work Phone: [phone] MCHC Auto (RBC) [Mass/Vol]on 11-02-2021 MCHC (RBC) [Mass/Vol] 29.5 g/dL 32-[address] [facility] Work Phone: No Panel Informationon 11-02 Estimated GFR (MDRD) Amer 133 mL/min >60 [facility] Work Phone: [phone] Comment on above: GFR Calc Estimated GFR (MDRD) Non-Af Amer 110 mL/min >60 [facility] Work Phone: [phone] Comment on above: Non- GFR Calc Platelets bldon 11-02-2021 Platelets (Bld) [#/Vol] 545 10*3/uL 150-450 [facility] Work Phone: [phone] Serum or plasma calcium jj urement (mass/volume)on 11-02-2021 Calcium [Mass/Vol] 9.6 mg/dL 8.5-10.1 [facility] Work Phone: [phone] Serum or plasma creatinine m easurement (mass/volume)on 11-02-2021 Creatinine [Mass/Vol] 0.59 mg/dL 0.55-1.[address] [facility] Work Phone: Comment on above: The validity of the calculated GFR & GFRAA in patients over 70 years has not been determined. Clinical correlation is essential. Serum or plasma urea nitroge n measurement (mass/volume)on 11-02-2021 Urea nitrogen [Mass/Vol] 21 mg/dL 7-18 [facility] Work Phone: Thin prep Papanicolaou smear with manual screeningon 11-02-2021 Thin prep Papanicolaou smear with manual screening 7 5-15 [facility] Work Phone: Absolute lymphocyte counton 10-25-2021 Lymphocytes Auto (Unsp spec) [#/Vol] 1.29 10*3/uL 0.83-4.51 [facility] Work Phone: Basophil percentageon 2021 Basophils/100 WBC (Bld) 0.8 % 0-1 [facility] Work Phone: Chloride [Moles/Vol] 106 mmol/L 98-107 [facility] Work Phone: Eosinophils/100 WBC (Bld) 2.0 % 0-5 [facility] Work Phone: Glucose [Mass/Vol] 106 mg/dL 74-106 [facility] Work Phone: Comment on above: Fasting Glucose resu lt from 100 to 125 mg/dL suggests IMPAIRED HOMEOSTASIS per A.D.A. criteria. Neutrophils (Bld) [#/Vol] 13.8 10*3/uL 2.0-7.7 [facility] Work Phone: Neutrophils/100 WBC (Bld) 79.4 % 47-70 [facility] Work Phone: Potassium [Moles/Vol] 4.3 mmol/L 3.5-5.[address] [facility] Work Phone: Comment on above: Slight Hemolysis, Re sult may be falsely increased. Sodium [Moles/Vol] 137 mmol/L 136-145 [facility] Work Phone: WBC (Bld) [#/Vol] 17.3 10*3/uL 4.4-11.0 [facility] Work Phone: [phone] Blood erythrocytes count (nu mber/volume)on 10-25-2021 RBC (Bld) [#/Vol] 4.91 10*6/uL 4.2-5.4 [facility] Work Phone: [phone] Blood hemoglobin measurement (mass/volume)on 10-25-2021 Hemoglobin (Bld) [Mass/Vol] 13.4 g/dL 12.0-15.0 [facility] Work Phone: [phone] Blood lymphocytes/100 leukoc yteson 10-25-2021 Lymphocytes/100 WBC (Bld) 7.5 % 19-41 [facility] Work Phone: [phone] Blood monocytes/100 leukocyt eson 10-25-2021 Monocytes/100 WBC (Bld) 7.9 % 0-10 [facility] Work Phone: [phone] Blood platelet mean volumeon 10-25-2021 Platelet mean volume (Bld) [Entitic vol] 8.6 fL 6.2-12.0 [facility] Work Phone: [phone] Determination of erythrocyte mean corpuscular volume (MCV)on 10-25-2021 MCV (RBC) [Entitic vol] 87.8 fL 81-99 [facility] Work Phone: [phone] Hematocrit Auto (Bld) [Volum e fraction]on 10-25-2021 Hematocrit (Bld) [Volume fraction] 43.1 % 37-47 [facility] Work Phone: [phone] Laboratory - Chemistry and C hemistry - challengeon 10-25-2021 CO2 [Moles/Vol] 24.0 mmol/L 21.0-32.0 [facility] Work Phone: [phone] Urea nitrogen/Creatinine [Mass ratio] 18.2 mg/mg 10-20 [facility] Work Phone: [phone] Laboratory - Hematology and Cell countson 10-25-2021 Erythrocyte distribution width (RBC) [Entitic vol] 49.2 fL 35.1-43.9 [facility] Work Phone: [phone] Erythrocyte distribution width (RBC) [Ratio] 15.5 % 11.6-14.6 [facility] Work Phone: [phone] Immature granulocytes/100 WBC (Bld) 2.400 % 0.0-0.9 [facility] Work Phone: [phone] Comment on above: IG% - Immature Granu locytes (promyelocytes, myelocytes and metamyelocytes) > 1% indicates that a LEFT SHIFT is Present. MCH (RBC) [Entitic mass] 27.3 pg 27.0-32.0 [facility] Work Phone: [phone] Nucleated RBC/100 WBC (Bld) [Ratio] 0 % 0-5 [facility] Work Phone: [phone] MCHC Auto (RBC) [Mass/Vol]on 10-25-2021 MCHC (RBC) [Mass/Vol] 31.1 g/dL 32-[address] [facility] Work Phone: No Panel Informationon 10-25 Estimated GFR (MDRD) Amer 84 mL/min >60 [facility] Work Phone: Comment on above: GFR Calc Estimated GFR (MDRD) Non-Af Amer 69 mL/min >60 [facility] Work Phone: Comment on above: Non- GFR Calc Platelets bldon 10-25-2021 Platelets (Bld) [#/Vol] 614 10*3/uL 150-450 [facility] Work Phone: [phone] Serum or plasma calcium jj urement (mass/volume)on 10-25-2021 Calcium [Mass/Vol] 8.9 mg/dL 8.5-10.1 [facility] Work Phone: [phone] Serum or plasma creatinine m easurement (mass/volume)on 10-25-2021 Creatinine [Mass/Vol] 0.88 mg/dL 0.55-1.[address] [facility] Work Phone: [phone] Comment on above: The validity of the calculated GFR & GFRAA in patients over 70 years has not been determined. Clinical correlation is essential. Serum or plasma urea nitroge n measurement (mass/volume)on 10-25-2021 Urea nitrogen [Mass/Vol] 16 mg/dL 7-18 [facility] Work Phone: Thin prep Papanicolaou smear with manual screeningon 10-25-2021 Thin prep Papanicolaou smear with manual screening 7 5-15 [facility] Work Phone: Absolute lymphocyte counton 10-18-2021 Lymphocytes Auto (Unsp spec) [#/Vol] 2.05 10*3/uL 0.83-4.51 [facility] Work Phone: Basophil percentageon 2021 Basophil percentage Not Reportable [facility] Work Phone: Chloride [Moles/Vol] 97 mmol/L 98-107 [facility] Work Phone: Glucose [Mass/Vol] 120 mg/dL 74-106 [facility] Work Phone: Comment on above: Fasting Glucose resu lt from 100 to 125 mg/dL suggests IMPAIRED HOMEOSTASIS per A.D.A. criteria. Neutrophils (Bld) [#/Vol] 12.6 10*3/uL 2.0-7.7 [facility] Work Phone: Potassium [Moles/Vol] 4.7 mmol/L 3.5-5.[address] [facility] Work Phone: Sodium [Moles/Vol] 131 mmol/L 136-145 [facility] Work Phone: WBC (Bld) [#/Vol] 18.6 10*3/uL 4.4-11.0 [facility] Work Phone: Bilirubin Test strip Ql (U)o n 10-18-2021 Bilirubin Ql (U) Negative Negative [facility] Work Phone: Blood eosinophils/100 leukoc yteson 10-18-2021 Eosinophils/100 WBC (Bld) 2 % 0-5 [facility] Work Phone: Blood erythrocytes count (nu mber/volume)on 10-18-2021 RBC (Bld) [#/Vol] 4.24 10*6/uL 4.2-5.4 [facility] Work Phone: Blood hemoglobin measurement (mass/volume)on 10-18-2021 Hemoglobin (Bld) [Mass/Vol] 11.6 g/dL 12.0-15.0 [facility] Work Phone: Blood lymphocytes/100 leukoc yteson 10-18-2021 Lymphocytes/100 WBC (Bld) 11 % 19-41 [facility] Work Phone: Blood metamyelocytes/100 papa kocyteson 10-18-2021 Metamyelocytes/100 WBC (Bld) 6 % 0-1 [facility] Work Phone: Blood monocytes/100 leukocyt eson 10-18-2021 Monocytes/100 WBC (Bld) 8 % 0-10 [facility] Work Phone: Blood platelet adequacy dete ction by light microscopyon 10-18-2021 Platelets LM Ql (Bld) MOD INC ADEQ [facility] Work Phone: Blood platelet mean volumeon 10-18-2021 Platelet mean volume (Bld) [Entitic vol] 8.6 fL 6.2-12.0 [facility] Work Phone: Blood promyelocytes/100 leuk ocyteson 10-18-2021 Promyelocytes/100 WBC (Bld) 1 % 0-0 [facility] Work Phone: Blood segmented neutrophils/ 100 leukocyteson 10-18-2021 Segmented neutrophils/100 WBC (Bld) 68 % 47-70 [facility] Work Phone: Culture, urineon 10-18-2021 Bacteria identified Cx Nom (U) Mixed Gram Pos & Gram Neg Org [facility] Work Phone: Bacteria identified Cx Nom (U) Yeast [facility] Work Phone: Determination of erythrocyte mean corpuscular volume (MCV)on 10-18-2021 MCV (RBC) [Entitic vol] 89.6 fL 81-99 [facility] Work Phone: [phone] Hematocrit Auto (Bld) [Volum e fraction]on 10-18-2021 Hematocrit (Bld) [Volume fraction] 38.0 % 37-47 [facility] Work Phone: [phone] Ketones Test strip Ql (U)on 10-18-2021 Ketones Ql (U) Negative Negative [facility] Work Phone: [phone] Laboratory - Chemistry and C hemistry - challengeon 10-18-2021 CO2 [Moles/Vol] 24.0 mmol/L 21.0-32.0 [facility] Work Phone: [phone] Urea nitrogen/Creatinine [Mass ratio] 49.9 mg/mg 10-20 [facility] Work Phone: [phone] Laboratory - Hematology and Cell countson 10-18-2021 Erythrocyte distribution width (RBC) [Entitic vol] 48.5 fL 35.1-43.9 [facility] Work Phone: [phone] Erythrocyte distribution width (RBC) [Ratio] 14.9 % 11.6-14.6 [facility] Work Phone: [phone] MCH (RBC) [Entitic mass] 27.4 pg 27.0-32.0 [facility] Work Phone: [phone] Myelocytes/100 WBC (Bld) 4 % 0-0 [facility] Work Phone: [phone] MCHC Auto (RBC) [Mass/Vol]on 10-18-2021 MCHC (RBC) [Mass/Vol] 30.5 g/dL 32-36 [facility] Work Phone: [phone] Nitrite Test strip Ql (U)on 10-18-2021 Nitrite Ql (U) Negative Negative [facility] Work Phone: No Panel Informationon 10-18 Estimated GFR (MDRD) Amer 129 mL/min >60 [facility] Work Phone: Comment on above: GFR Calc Estimated GFR (MDRD) Non-Af Amer 107 mL/min >60 [facility] Work Phone: [phone] Comment on above: Non- GFR Calc Platelets bldon 10-18-2021 Platelets (Bld) [#/Vol] 561 10*3/uL 150-450 [facility] Work Phone: [phone] Protein Test strip Ql (U)on 10-18-2021 Protein Ql (U) 15 mg/dl Negative [facility] Work Phone: RBC morphologyon 10-18-2021 RBC morphology finding Nom (Bld) NORM C+C NORMAL NORM C&C [facility] Work Phone: Review by pathologiston 10-03 Pathologist review Shaan (Unsp spec) [Interp] Reviewed [facility] Work Phone: Comment on above: Previous reported re sult: Kori isaacs Edited by: JACQUES on 10/19/21:1241Leukocytosis with Neutrophilic left shift. Thrombocytosis.Clinical correlation necessary.Je Browne M.D. 10/19/21 AMENDED REPORT 10/19/21 1241 PATH REV previously reported as: oKri isaacs Serum or plasma calcium jj urement (mass/volume)on 10-18-2021 Calcium [Mass/Vol] 9.6 mg/dL 8.5-10.1 [facility] Work Phone: [phone] Serum or plasma creatinine m easurement (mass/volume)on 10-18-2021 Creatinine [Mass/Vol] 0.60 mg/dL 0.55-1.[address] [facility] Work Phone: [phone] Comment on above: The validity of the calculated GFR & GFRAA in patients over 70 years has not been determined. Clinical correlation is essential. Serum or plasma urea nitroge n measurement (mass/volume)on 10-18-2021 Urea nitrogen [Mass/Vol] 30 mg/dL 7-18 [facility] Work Phone: [phone] Thin prep Papanicolaou smear with manual screeningon 10-18-2021 Thin prep Papanicolaou smear with manual screening 10 5-15 [facility] Work Phone: Total cell counton 2 Cells counted Molgen (Bld/Tiss) [#] 100 MANUAL DIFF [facility] Work Phone: Urine blood detectionon 10-03 RBC Ql (U) Negative Negative [facility] Work Phone: Urine clarityon 10-18-2021 Clarity (U) Clear Clear [facility] Work Phone: Urine color determinationon 10-18-2021 Color (U) Yellow Yellow [facility] Work Phone: Urine glucose detectionon Glucose Ql (U) Normal mg/dl Normal [facility] Work Phone: Urine leukocyte esterase det ection by dipstickon 10-18-2021 Leukocyte esterase Test strip Ql (U) Negative Negative [facility] Work Phone: Urine pHon 10-18-2021 pH (U) 6.0 [pH] 5.0 - 8.0 [facility] Work Phone: Urine specific gravity measu rementon 10-18-2021 Specific gravity (U) [Rel density] 1.015 1.002-1.030 [facility] Work Phone: Urobilinogen Auto test strip Ql (U)on 10-18-2021 Urobilinogen Ql (U) Normal mg/dl Normal [facility] Work Phone: Absolute lymphocyte counton 10-11-2021 Lymphocytes Auto (Unsp spec) [#/Vol] 1.28 10*3/uL 0.83-4.51 [facility] Work Phone: Basophil percentageon 2021 Basophils/100 WBC (Bld) 0.5 % 0-1 [facility] Work Phone: Bilirubin [Mass/Vol] 0.40 mg/dL 0.20-1.00 [facility] Work Phone: Comment on above: For patients on eltr ombopag therapy, use of Dimension [place] TBIL is not recommended. Chloride [Moles/Vol] 102 mmol/L 98-107 [facility] Work Phone: Eosinophils/100 WBC (Bld) 3.5 % 0-5 [facility] Work Phone: [phone] Glucose [Mass/Vol] 130 mg/dL 74-106 [facility] Work Phone: Comment on above: Fasting Glucose resu lt greater than or equal to 126 mg/dL suggests DIABETES MELLITUS per A.D.A. criteria. Neutrophils (Bld) [#/Vol] 10.0 10*3/uL 2.0-7.7 [facility] Work Phone: Neutrophils/100 WBC (Bld) 74.6 % 47-70 [facility] Work Phone: Potassium [Moles/Vol] 4.0 mmol/L 3.5-5.[address] [facility] Work Phone: Protein [Mass/Vol] 6.3 g/dL 6.4-8.2 [facility] Work Phone: Sodium [Moles/Vol] 137 mmol/L 136-145 [facility] Work Phone: WBC (Bld) [#/Vol] 13.4 10*3/uL 4.4-11.0 [facility] Work Phone: Blood erythrocytes count (nu mber/volume)on 10-11-2021 RBC (Bld) [#/Vol] 4.57 10*6/uL 4.2-5.4 [facility] Work Phone: Blood hemoglobin measurement (mass/volume)on 10-11-2021 Hemoglobin (Bld) [Mass/Vol] 12.4 g/dL 12.0-15.0 [facility] Work Phone: Blood lymphocytes/100 leukoc yteson 10-11-2021 Lymphocytes/100 WBC (Bld) 9.6 % 19-41 [facility] Work Phone: Blood monocytes/100 leukocyt eson 10-11-2021 Monocytes/100 WBC (Bld) 9.0 % 0-10 [facility] Work Phone: Blood platelet mean volumeon 10-11-2021 Platelet mean volume (Bld) [Entitic vol] 9.2 fL 6.2-12.0 [facility] Work Phone: Determination of erythrocyte mean corpuscular volume (MCV)on 10-11-2021 MCV (RBC) [Entitic vol] 90.2 fL 81-99 [facility] Work Phone: Hematocrit Auto (Bld) [Volum e fraction]on 10-11-2021 Hematocrit (Bld) [Volume fraction] 41.2 % 37-47 [facility] Work Phone: Laboratory - Chemistry and C hemistry - challengeon 10-11-2021 ALP [Catalytic activity/Vol] 79 U/L 45-117 [facility] Work Phone: ALT [Catalytic activity/Vol] 120 U/L 13-56 [facility] Work Phone: CO2 [Moles/Vol] 27.0 mmol/L 21.0-32.0 [facility] Work Phone: Globulin (S) [Mass/Vol] 4.5 g/dL 2.2-4.2 [facility] Work Phone: Urea nitrogen/Creatinine [Mass ratio] 64.6 mg/mg 10-20 [facility] Work Phone: Laboratory - Hematology and Cell countson 10-11-2021 Erythrocyte distribution width (RBC) [Entitic vol] 47.8 fL 35.1-43.9 [facility] Work Phone: Erythrocyte distribution width (RBC) [Ratio] 14.5 % 11.6-14.6 [facility] Work Phone: Immature granulocytes/100 WBC (Bld) 2.800 % 0.0-0.9 [facility] Work Phone: Comment on above: IG% - Immature Granu locytes (promyelocytes, myelocytes and metamyelocytes) > 1% indicates that a LEFT SHIFT is Present. MCH (RBC) [Entitic mass] 27.1 pg 27.0-32.0 [facility] Work Phone: Nucleated RBC/100 WBC (Bld) [Ratio] 0 % 0-5 [facility] Work Phone: [phone] MCHC Auto (RBC) [Mass/Vol]on 10-11-2021 MCHC (RBC) [Mass/Vol] 30.1 g/dL 32-[address] [facility] Work Phone: No Panel Informationon 10-11 Estimated GFR (MDRD) Amer 168 mL/min >60 [facility] Work Phone: Comment on above: GFR Calc Estimated GFR (MDRD) Non-Af Amer 139 mL/min >60 [facility] Work Phone: [phone] Comment on above: Non- GFR Calc Platelets bldon 10-11-2021 Platelets (Bld) [#/Vol] 369 10*3/uL 150-450 [facility] Work Phone: [phone] Serum or plasma albumin jj urement (mass/volume)on 10-11-2021 Albumin [Mass/Vol] 1.8 g/dL 3.2-5.0 [facility] Work Phone: [phone] Serum or plasma albumin/glob ulin mass ratioon 10-11-2021 Albumin/Globulin [Mass ratio] 0.4 {ratio} 0.9-2.4 [facility] Work Phone: [phone] Serum or plasma calcium jj urement (mass/volume)on 10-11-2021 Calcium [Mass/Vol] 8.9 mg/dL 8.5-10.1 [facility] Work Phone: [phone] Serum or plasma creatinine m easurement (mass/volume)on 10-11-2021 Creatinine [Mass/Vol] 0.48 mg/dL 0.55-1.[address] [facility] Work Phone: Comment on above: The validity of the calculated GFR & GFRAA in patients over 70 years has not been determined. Clinical correlation is essential. Serum or plasma urea nitroge n measurement (mass/volume)on 10-11-2021 Urea nitrogen [Mass/Vol] 31 mg/dL 7-18 [facility] Work Phone: Thin prep Papanicolaou smear with manual screeningon 10-11-2021 Thin prep Papanicolaou smear with manual screening 55 U/L 15-37 [facility] Work Phone: Thin prep Papanicolaou smear with manual screening 8 5-15 [facility] Work Phone: Absolute lymphocyte counton 09-28-2021 Lymphocytes Auto (Unsp spec) [#/Vol] 1.32 10*3/uL 0.83-4.51 [facility] Work Phone: Basophil percentageon 2021 Basophils/100 WBC (Bld) 0.5 % 0-1 [facility] Work Phone: Chloride [Moles/Vol] 106 mmol/L 98-107 [facility] Work Phone: Eosinophils/100 WBC (Bld) 0.1 % 0-5 [facility] Work Phone: Glucose [Mass/Vol] 115 mg/dL 74-106 [facility] Work Phone: Comment on above: Fasting Glucose resu lt from 100 to 125 mg/dL suggests IMPAIRED HOMEOSTASIS per A.D.A. criteria. Neutrophils (Bld) [#/Vol] 11.5 10*3/uL 2.0-7.7 [facility] Work Phone: Neutrophils/100 WBC (Bld) 77.5 % 47-70 [facility] Work Phone: Potassium [Moles/Vol] 4.0 mmol/L 3.5-5.[address] [facility] Work Phone: Sodium [Moles/Vol] 138 mmol/L 136-145 [facility] Work Phone: WBC (Bld) [#/Vol] 14.8 10*3/uL 4.4-11.0 [facility] Work Phone: Blood erythrocytes count (nu mber/volume)on 09-28-2021 RBC (Bld) [#/Vol] 5.25 10*6/uL 4.2-5.4 [facility] Work Phone: Blood hemoglobin measurement (mass/volume)on 09-28-2021 Hemoglobin (Bld) [Mass/Vol] 14.7 g/dL 12.0-15.0 [facility] Work Phone: Blood lymphocytes/100 leukoc yteson 09-28-2021 Lymphocytes/100 WBC (Bld) 8.9 % 19-41 [facility] Work Phone: Blood monocytes/100 leukocyt eson 09-28-2021 Monocytes/100 WBC (Bld) 8.6 % 0-10 [facility] Work Phone: Blood platelet mean volumeon 09-28-2021 Platelet mean volume (Bld) [Entitic vol] 9.1 fL 6.2-12.0 [facility] Work Phone: Determination of erythrocyte mean corpuscular volume (MCV)on 09-28-2021 MCV (RBC) [Entitic vol] 88.8 fL 81-99 [facility] Work Phone: Glucose Glucometer (BldC) [M ass/Vol]on 09-28-2021 Glucose [Mass/Vol] 188 mg/dL 74-106 [facility] Work Phone: Comment on above: MANAGEMENT OF PATIEN T CARE PER NURSING PROTOCOL Hematocrit Auto (Bld) [Volum e fraction]on 09-28-2021 Hematocrit (Bld) [Volume fraction] 46.6 % 37-47 [facility] Work Phone: Laboratory - Chemistry and C hemistry - challengeon 09-28-2021 CO2 [Moles/Vol] 24.0 mmol/L 21.0-32.0 [facility] Work Phone: [phone] Urea nitrogen/Creatinine [Mass ratio] 41.0 mg/mg 10-20 [facility] Work Phone: [phone] Laboratory - Hematology and Cell countson 09-28-2021 Erythrocyte distribution width (RBC) [Entitic vol] 43.8 fL 35.1-43.9 [facility] Work Phone: [phone] Erythrocyte distribution width (RBC) [Ratio] 13.5 % 11.6-14.6 [facility] Work Phone: [phone] Immature granulocytes/100 WBC (Bld) 4.400 % 0.0-0.9 [facility] Work Phone: [phone] Comment on above: IG% - Immature Granu locytes (promyelocytes, myelocytes and metamyelocytes) > 1% indicates that a LEFT SHIFT is Present. MCH (RBC) [Entitic mass] 28.0 pg 27.0-32.0 [facility] Work Phone: [phone] Nucleated RBC/100 WBC (Bld) [Ratio] 0 % 0-5 [facility] Work Phone: [phone] MCHC Auto (RBC) [Mass/Vol]on 09-28-2021 MCHC (RBC) [Mass/Vol] 31.5 g/dL 32-[address] [facility] Work Phone: [phone] Panel Informationon 09-28 Estimated Creatinine Clearance Calc 92.08 ml/min [facility] Work Phone: [phone] Estimated GFR (MDRD) Amer 147 mL/min >60 [facility] Work Phone: [phone] Comment on above: GFR Calc Estimated GFR (MDRD) Non-Af Amer 122 mL/min >60 [facility] Work Phone: [phone] Comment on above: Non- GFR Calc Platelets bldon 09-28-2021 Platelets (Bld) [#/Vol] 490 10*3/uL 150-450 [facility] Work Phone: [phone] Serum or plasma calcium jj urement (mass/volume)on 09-28-2021 Calcium [Mass/Vol] 9.2 mg/dL 8.5-10.1 [facility] Work Phone: Serum or plasma creatinine m easurement (mass/volume)on 09-28-2021 Creatinine [Mass/Vol] 0.54 mg/dL 0.55-1.[address] [facility] Work Phone: Comment on above: The validity of the calculated GFR & GFRAA in patients over 70 years has not been determined. Clinical correlation is essential. Serum or plasma urea nitroge n measurement (mass/volume)on 09-28-2021 Urea nitrogen [Mass/Vol] 22 mg/dL 7-18 [facility] Work Phone: Thin prep Papanicolaou smear with manual screeningon 09-28-2021 Thin prep Papanicolaou smear with manual screening 8 5-15 [facility] Work Phone: Blood lymphocytes/100 leukoc yteson 09-26-2021 Lymphocytes/100 WBC (Bld) 7 % 19-41 [facility] Work Phone: [phone] Blood monocytes/100 leukocyt eson 09-26-2021 Monocytes/100 WBC (Bld) 15 % 0-10 [facility] Work Phone: [phone] Blood platelet adequacy dete ction by light microscopyon 09-26-2021 Platelets LM Ql (Bld) MKD INC ADEQ [facility] Work Phone: [phone] Blood segmented neutrophils/ 100 leukocyteson 09-26-2021 Segmented neutrophils/100 WBC (Bld) 77 % 47-70 [facility] Work Phone: Laboratory - Hematology and Cell countson 09-26-2021 Myelocytes/100 WBC (Bld) 1 % 0-0 [facility] Work Phone: [phone] RBC morphologyon 09-26-2021 RBC morphology finding Nom (Bld) NORM C+C NORMAL NORM C&C [facility] Work Phone: Review by pathologiston 09-04 Pathologist review Shaan (Unsp spec) [Interp] Reviewed [facility] Work Phone: Comment on above: Previous reported re sult: Kori isaacs Edited by: RGOOD on 09/27/21:1017Neutrophilic leukocytosis with left shift. PolycythemiaThrombocytosis.Clinical correlation necessary.Je Browne M.D. 09/27/21 AMENDED REPORT 09/27/21 1017 PATH REV previously reported as: October ferny Total cell counton Cells counted [employer] (Bld/Tiss) [#] 100 MANUAL DIFF [facility] Work Phone: Blood band neutrophil count as percentage of total leukocyteson 09-25-2021 Band form neutrophils/100 WBC (Bld) 1 % 0-5 [facility] Work Phone: Blood metamyelocytes/100 papa kocyteson 09-25-2021 Metamyelocytes/100 WBC (Bld) 3 % 0-1 [facility] Work Phone: Blood promyelocytes/100 leuk ocyteson 09-25-2021 Promyelocytes/100 WBC (Bld) 1 % 0-0 [facility] Work Phone: Basophil percentageon 2021 Basophil percentage 1 % 0-5 [facility] Work Phone: No Panel Informationon 09-22 D-Dimer Quantitative (PE/DVT) 0.56 FEU/ug/m 0.27-0.49 [facility] Work Phone: Comment on above: D-Dimer ELEVATED (>0 .49): Additional studies and clinicalassessments are indicated to conclude diagnosis of:Deep Vein Thrombosis (DVT) or Pulmonary Embolism (PE)CRITICAL VALUE VERIFIED. CALLED TO YVONNE PONCE (U)09/22/21 1110 Aren Castaneda.RESULTS READ BACK BY SAME. Blood manual differential co mment interpretation (narrative result)on 09-21-2021 Manual differential comment Shaan (Bld) [Interp] SCANNED [facility] Work Phone: Basophil percentageon 2021 Bilirubin [Mass/Vol] 0.30 mg/dL 0.20-1.00 [facility] Work Phone: Comment on above: For patients on eltr ombopag therapy, use of Dimension Rosepine TBIL is not recommended. Protein [Mass/Vol] 5.7 g/dL 6.4-8.2 [facility] Work Phone: Laboratory - Chemistry and C hemistry - challengeon 09-20-2021 ALP [Catalytic activity/Vol] 52 U/L 45-117 [facility] Work Phone: [phone] ALT [Catalytic activity/Vol] 28 U/L 13-56 [facility] Work Phone: [phone] Globulin (S) [Mass/Vol] 3.2 g/dL 2.2-4.2 [facility] Work Phone: [phone] Serum or plasma albumin jj urement (mass/volume)on 09-20-2021 Albumin [Mass/Vol] 2.5 g/dL 3.2-5.0 [facility] Work Phone: Serum or plasma albumin/glob ulin mass ratioon 09-20-2021 Albumin/Globulin [Mass ratio] 0.8 {ratio} 0.9-2.4 [facility] Work Phone: Thin prep Papanicolaou smear with manual screeningon 09-20-2021 Thin prep Papanicolaou smear with manual screening 24 U/L 15-37 [facility] Work Phone: Basophil percentageon 2021 Basophil percentage 2.5 mg/dL 2.5-4.9 [facility] Work Phone: [phone] Laboratory - Chemistry and C hemistry - challengeon 09-19-2021 Magnesium [Mass/Vol] 2.1 mg/dL 1.6-2.6 [facility] Work Phone: No Panel Informationon 09-19 Thyroid Stimulating Hormone (TSH) 0.74 uIU/mL 0.358-3.74 [facility] Work Phone: Bronchoalveolar lavage cultu re with Gram stainon 09-18-2021 Respiratory Culture Negative [facility] Work Phone: Gram stain for investigation of transfusion reactionon 09-18-2021 Microscopic observation Gram stain Nom (Unsp spec) [facility] Work Phone: No Panel Informationon 09-18 Streptococcus pneumoniae Antigen (M [facility] Work Phone: Serum or plasma C reactive p rotein measurement (mass/volume)on 09-18-2021 CRP [Mass/Vol] 172.00 mg/L 0.0-3.0 [facility] Work Phone: Comment on above: C-Reactive Protein ( CRP) provides useful information for thediagnosis, therapy and monitoring of inflammatory processesand associated diseases. For the evaluation of Relative Riskfor Cardiovascular Disease, a High Sensitivity CRP (HSCRP)should be ordered. Vancomycin troughon 09-19-19 Vancomycin trough [Mass/Vol] 14.1 ug/mL 5.0-15.0 [facility] Work Phone: Comment on above: VANCOMYCIN STANDARED DRUG THERAPY TROUGH LEVEL: 5.0 - 15.0 mg/L VANCOMYCIN HIGH INTENSITY THERAPY TROUGH LEVEL: 15.0 - 20.0 mg/L High Intensity therapy recommended for serious lifethreatening infections include:- Skaceikvpm-Vmxqcixsnfep-Yugwfwszs (Ventilator/Healtcare Associated)-Sepsis PLEASE CONTACT PHARMACY SERVICES (#[id number]) FOR INTERPRETATIONOF RESULTS. Assessment of wrist artery p atency prior to arterial punctureon 09-17-2021 Arterial patency Wrist artery --pre arterial puncture Positive [facility] Work Phone: [phone] Base excesson 09-17-2021 Base excess Calc (BldV) [Moles/Vol] -2 mmol/L -2-2 [facility] Work Phone: [phone] Basophil percentageon 2021 Basophil percentage 21.8 mmol/L 22-26 [facility] Work Phone: [phone] Basophils/100 WBC (Bld) 88 % 95-99 [facility] Work Phone: [phone] CO2 (BldA) [Partial pressure ]on 09-17-2021 CO2 (Bld) [Partial pressure] 31.7 mm[Hg] 35-45 [facility] Work Phone: No Panel Informationon 09-17 Bedside Blood Gas PEEP 8 [facility] Work Phone: Blood Gas Oxygen Percent 100 [facility] Work Phone: Blood Gas Sample Site L Radial [facility] Work Phone: Blood Gas Specimen Type ART [facility] Work Phone: Blood Gas Total CO2 23 mmol/L [facility] Work Phone: Oxygen Delivery Device BiPAP [facility] Work Phone: Oxygen (BldA) [Partial press ure]on 09-17-2021 Oxygen (Bld) [Partial pressure] 51 mmHG 75-100 [facility] Work Phone: pH measurementon 09-17-2021 pH (Unsp spec) 7.45 [pH] 7.35-7.45 [facility] Work Phone: Absolute lymphocyte counton 09-16-2021 Lymphocytes Auto (Unsp spec) [#/Vol] 0.70 10*3/uL 0.83-4.51 [facility] Work Phone: Basophil percentageon 2021 Lactate [Moles/Vol] 1.8 mmol/L 0.4-2.0 [facility] Work Phone: Basophil percentage 0 SEEN /hpf 0-5 [facility] Work Phone: Lactate [Moles/Vol] 2.2 mmol/L 0.4-2.0 [facility] Work Phone: Comment on above: Critical Result(s) C alled at: 14:10:01 09/16/2021 by: Mirima Grijalva. Results read back by same. Bilirubin [Mass/Vol] 0.20 mg/dL 0.20-1.00 [facility] Work Phone: Comment on above: For patients on eltr ombopag therapy, use of Dimension [place] TBIL is not recommended. Chloride [Moles/Vol] 109 mmol/L 98-107 [facility] Work Phone: Glucose [Mass/Vol] 141 mg/dL 74-106 [facility] Work Phone: Comment on above: Fasting Glucose resu lt greater than or equal to 126 mg/dL suggests DIABETES MELLITUS per A.D.A. criteria. Potassium [Moles/Vol] 3.7 mmol/L 3.5-5.1 [facility] Work [facility]: Protein [Mass/Vol] 6.9 g/dL 6.4-8.2 [facility] Work Phone: Sodium [Moles/Vol] 141 mmol/L 136-145 [facility] Work Phone: Basophils/100 WBC (Bld) 0.5 % 0-1 [facility] Work Phone: Eosinophils/100 WBC (Bld) 0.1 % 0-5 [facility] Work Phone: Neutrophils (Bld) [#/Vol] 6.7 10*3/uL 2.0-7.7 [facility] Work Phone: Neutrophils/100 WBC (Bld) 75.2 % 47-70 [facility] Work Phone: WBC (Bld) [#/Vol] 8.8 10*3/uL 4.4-11.0 [facility] Work Phone: Bilirubin Test strip Ql (U)o n 09-16-2021 Bilirubin Ql (U) Negative Negative [facility] Work Phone: Blood erythrocytes count (nu mber/volume)on 09-16-2021 RBC (Bld) [#/Vol] 4.98 10*6/uL 4.2-5.4 [facility] Work Phone: Blood hemoglobin measurement (mass/volume)on 09-16-2021 Hemoglobin (Bld) [Mass/Vol] 14.2 g/dL 12.0-15.0 [facility] Work Phone: Blood lymphocytes/100 leukoc yteson 09-16-2021 Lymphocytes/100 WBC (Bld) 7.9 % 19-41 [facility] Work Phone: Blood monocytes/100 leukocyt eson 09-16-2021 Monocytes/100 WBC (Bld) 15.6 % 0-10 [facility] Work Phone: Blood platelet mean volumeon 09-16-2021 Platelet mean volume (Bld) [Entitic vol] 8.9 fL 6.2-12.0 [facility] Work Phone: Determination of erythrocyte mean corpuscular volume (MCV)on 09-16-2021 MCV (RBC) [Entitic vol] 90.8 fL 81-99 [facility] Work Phone: Hematocrit Auto (Bld) [Volum e fraction]on 09-16-2021 Hematocrit (Bld) [Volume fraction] 45.2 % 37-47 [facility] Work Phone: INR in Blood by Coagulation assayon 09-16-2021 INR Coag (Bld) [Relative time] 1.0 {INR} [facility] Work Phone: Ketones Test strip Ql (U)on 09-16-2021 Ketones Ql (U) 5 mg/dl Negative [facility] Work Phone: Laboratory - Chemistry and C hemistry - challengeon 09-16-2021 ALP [Catalytic activity/Vol] 88 U/L 45-117 [facility] Work Phone: ALT [Catalytic activity/Vol] 28 U/L 13-56 [facility] Work Phone: [phone] CO2 [Moles/Vol] 27.0 mmol/L 21.0-32.0 [facility] Work Phone: Globulin (S) [Mass/Vol] 3.3 g/dL 2.2-4.2 [facility] Work Phone: Urea nitrogen/Creatinine [Mass ratio] 38.8 mg/mg 10-20 [facility] Work Phone: Laboratory - Coagulationon 0 09-16-2021 aPTT Coag (Bld) [Time] 30.0 s 24.1-36.2 [facility] Work Phone: PT Coag (PPP) [Time] 13.1 s 11.7-14.[address] [facility] [address] [facility] Work Phone: Laboratory - Hematology and Cell countson 09-16-2021 Erythrocyte distribution width (RBC) [Entitic vol] 44.8 fL 35.1-43.9 [facility] Work Phone: Erythrocyte distribution width (RBC) [Ratio] 13.4 % 11.6-14.6 [facility] Work Phone: Immature granulocytes/100 WBC (Bld) 0.700 % 0.0-0.9 [facility] Work Phone: Comment on above: IG% - Immature Granu locytes (promyelocytes, myelocytes and metamyelocytes) > 1% indicates that a LEFT SHIFT is Present. MCH (RBC) [Entitic mass] 28.5 pg 27.0-32.0 [facility] Work Phone: Nucleated RBC/100 WBC (Bld) [Ratio] 0 % 0-5 [facility] Work Phone: Laboratory - Microbiology an d Antimicrobial susceptibilityon 09-16-2021 Bacteria identified Cx Nom (Bld) No growth in 5 days. [facility] Work Phone: MCHC Auto (RBC) [Mass/Vol]on 09-16-2021 MCHC (RBC) [Mass/Vol] 31.4 g/dL 32-[address] [facility] Work Phone: Mucus LM Ql (Urine sed)on Mucus Ql (Urine sed) 0 SEEN /hpf [facility] Work Phone: [phone] Nitrite Test strip Ql (U)on 09-16-2021 Nitrite Ql (U) Positive Negative [facility] Work Phone: No Panel Informationon 09-16 Estimated Creatinine Clearance Calc 66.30 ml/min [facility] Work Phone: [phone] Estimated GFR (MDRD) Amer 101 mL/min >60 [facility] Work Phone: Comment on above: GFR Calc Estimated GFR (MDRD) Non-Af Amer 83 mL/min >60 [facility] Work Phone: Comment on above: Non- GFR Calc Platelets bldon 09-16-2021 Platelets (Bld) [#/Vol] 373 10*3/uL 150-450 [facility] Work Phone: Protein Test strip Ql (U)on 09-16-2021 Protein Ql (U) 15 mg/dl Negative [facility] Work Phone: Serum or plasma albumin jj urement (mass/volume)on 09-16-2021 Albumin [Mass/Vol] 3.6 g/dL 3.2-5.0 [facility] Work Phone: [phone] Serum or plasma albumin/glob ulin mass ratioon 09-16-2021 Albumin/Globulin [Mass ratio] 1.1 {ratio} 0.9-2.4 [facility] Work Phone: [phone] Serum or plasma calcium jj urement (mass/volume)on 09-16-2021 Calcium [Mass/Vol] 8.8 mg/dL 8.5-10.1 [facility] Work Phone: [phone] Serum or plasma creatinine m easurement (mass/volume)on 09-16-2021 Creatinine [Mass/Vol] 0.75 mg/dL 0.55-1.[address] [facility] Work Phone: Comment on above: The validity of the calculated GFR & GFRAA in patients over 70 years has not been determined. Clinical correlation is essential. Serum or plasma urea nitroge n measurement (mass/volume)on 09-16-2021 Urea nitrogen [Mass/Vol] 29 mg/dL 7-18 [facility] Work Phone: [phone] Squamous epithelial cells de tection in urine sediment by light microscopyon 09-16-2021 Epithelial cells.squamous LM Ql (Urine sed) 0 SEEN /hpf 5-10 [facility] Work Phone: Thin prep Papanicolaou smear with manual screeningon 09-16-2021 Thin prep Papanicolaou smear with manual screening 16 U/L 15-37 [facility] Work Phone: Thin prep Papanicolaou smear with manual screening 5 5-15 [facility] Work Phone: Urine blood detectionon 09-03 RBC Ql (U) 10 /ul Negative [facility] Work Phone: RBC Ql (U) 0 SEEN /hpf 0-5 [facility] Work Phone: Urine clarityon 09-16-2021 Clarity (U) Cloudy Clear [facility] Work Phone: Urine color determinationon 09-16-2021 Color (U) Yellow Yellow [facility] Work Phone: Urine glucose detectionon Glucose Ql (U) Normal mg/dl Normal [facility] Work Phone: Urine leukocyte esterase det ection by dipstickon 09-16-2021 Leukocyte esterase Test strip Ql (U) Negative Negative [facility] Work Phone: Urine pHon 09-16-2021 pH (U) 5.0 [pH] 5.0 - 8.0 [facility] Work Phone: Urine sediment bacteria coun t by microscopy (number/high power field)on 09-16-2021 Bacteria LM.HPF (Urine sed) [#/Area] 2 /[HPF] None Seen [facility] Work Phone: Urine specific gravity measu rementon 09-16-2021 Specific gravity (U) [Rel density] 1.025 1.002-1.030 [facility] Work Phone: Urobilinogen Auto test strip Ql (U)on 09-16-2021 Urobilinogen Ql (U) Normal mg/dl Normal [facility] Work Phone: Hepatic function 2000 panelo n 04-09-2021 Albumin [Mass/Vol] 4.4 g/dL 3.2 - 5.2 g/dL [facility] ALP [Catalytic activity/Vol] 100 U/L 40 - 150 U/L [facility] ALT [Catalytic activity/Vol] 22 U/L 0 - 40 U/L [facility] AST [Catalytic activity/Vol] 17 U/L 0 - 45 U/L [facility] Bilirubin [Mass/Vol] 0.2 mg/dL 0.0 - 1 .3 mg/dL [facility] Bilirubin.conjugated [Mass/Vol] mg/dL 0.0 - 0.4 mg/dL [facility] Interpretation and review of laboratory results Normal [facility] Protein [Mass/Vol] 6.5 g/dL 6.0 - 8.0 g/dL [facility] IGG, IGA, IGM IMMUNOGLOBULIN SOrdered By: Huong Jacobs on 04-09-2021 Interpretation and review of laboratory results Abnormal [facility] Laboratory - Chemistry and C hemistry - challengeon 04-09-2021 25-hydroxyvitamin D [Mass/Vol] 64 ng/mL 30 - 100 ng/mL [facility] Comment on above: Vitamin D status: Deficiency: <10 ng/mL Insufficiency: 10-30 ng/mL Sufficiency: 30-100 ng/mL Toxicity: >100 ng/mL Laboratory - Chemistry and C hemistry - challengeOrdered By: Huong Milan on 04-09-2021 IgA [Mass/Vol] 151 mg/dL 84 - 381 mg/dL [facility] IgG [Mass/Vol] 523 mg/dL Low 541 - 1694 mg/dL [facility] IgM [Mass/Vol] 60 mg/dL 43 - 238 mg/dL [facility] Laboratory - Hematology and Cell countson 04-09-2021 Basophils (Bld) [#/Vol] 0.07 10*3/uL [facility] Basophils/100 WBC (Bld) 0.6 % [facility] Eosinophils (Bld) [#/Vol] 0.04 10*3/uL [facility] Eosinophils/100 WBC (Bld) 0.4 % [facility] Erythrocyte distribution width (RBC) [Entitic vol] 13.8 % 11.6 - 14.8 % [facility] Hematocrit (Bld) [Volume fraction] 50.0 % High 36.0 - 46.0 % [facility] Hemoglobin (Bld) [Mass/Vol] 15.4 g/dL 12.0 - 16.0 g/dL [facility] Immature granulocytes (Bld) [#/Vol] 0.12 10*3/uL [facility] Immature granulocytes/100 WBC (Bld) 1.10 % [facility] Comment on above: The IG parameter is the percentage of metamyelocytes, myelocytes and promyelocytes. An immature granulocyte count (IG) of 1% or more suggests the possibility of infection, an IG count of 3% is very likely related to an infection. Lymphocytes (Bld) [#/Vol] 0.94 10*3/uL [facility] Lymphocytes/100 WBC (Bld) 8.4 % [facility] MCH (RBC) [Entitic mass] 28.1 pg 26. 0 - 34.[address] [facility] MCHC (RBC) [Mass/Vol] 30.8 g/dL Low 31.0 - 37.0 g/dL [facility] MCV (RBC) [Entitic vol] 91.2 fL 80.0 - 100.[address] [facility] Monocytes (Bld) [#/Vol] 0.93 10*3/uL High [facility] Monocytes/100 WBC (Bld) 8.3 % [facility] Neutrophils (Bld) [#/Vol] 9.12 10*3/uL High [facility] Neutrophils/100 WBC (Bld) 81.2 % [facility] Nucleated RBC (Bld) [#/Vol] 0.00 10*3/uL [facility] Nucleated RBC/100 WBC (Bld) [Ratio] 0.0 % [facility] Platelet mean volume (Bld) [Entitic vol] 9.4 fL 9.4 - 12.[address] [facility] Platelets (Bld) [#/Vol] 417 10*3/uL High [facility] RBC (Bld) [#/Vol] 5.48 10*6/uL High [facility] WBC (Bld) [#/Vol] 11.22 10*3/uL [facility] No Panel Informationon 04-09 Interpretation and review of laboratory results Abnormal [facility] VITAMIN D, TOTAL, 25-OHon Interpretation and review of laboratory results Normal [facility] Assay performed shahrzad gomez Diasorin CLIA methodology. [facility] MR BRAIN WITHOUT CONTRASTon 10-18-2019 No acute intracrania l abnormality. Underlying atrophy and black holes. Stable burden of T2/FLAIR signal abnormalities compatible with demyelination. [employer] Workstation ID: [id number] [facility] EXAMINATION: MR HEATHER Jewell WITHOUT CONTRAST [...] compatible with the patient's diagnosis of demyelination. [facility] Interface, Rad In Fuji Speechq - [...] of T2/FLAIR signal abnormalities compatible with demyelination. [facility] Workstation ID: [id number] [facility] POC Creatinineon 09-28-2018 Creatinine mass conc 0.6 mg/dL 0.4 - 1 .1 mg/dL [facility] Interpretation and review of laboratory results Normal [facility] Comprehensive Metabolic Pane dwight 01-19-2018 Albumin mass conc 4.7 g/dL Invalid Interpretation Code 3.2 - 5.2 g/dL [facility] ALP enzyme act/vol 76 U/L Invalid Interpretation Code 40 - 150 U/L [facility] ALT enzyme act/vol 14 U/L Invalid Interpretation Code 0 - 40 U/L [facility] Anion gap 3 molar conc 17 mmol/L Invalid Interpretation Code 10 - 20 mmol/L [facility] AST enzyme act/vol 15 U/L Invalid Interpretation Code 0 - 45 U/L [facility] Bilirubin mass conc 0.3 mg/dL Invalid Interpretation Code 0 - 1.3 mg/dL [facility] Calcium mass conc 10.2 mg/dL Invalid Interpretation Code 8.4 - 10.2 mg/dL [facility] Chloride molar conc 107 mmol/L Invalid Interpretation Code 98 - 108 mmol/L [facility] Creatinine mass conc 0.47 mg/dL Invalid Interpretation Code 0.4 - 1.1 mg/dL [facility] GFR/1.73 sq M predicted among non-blacks MDRD vol rate/area (S/P/Bld) The eGFR should be used for monitoring renal function only and not for medication dosing. Invalid Interpretation Code [facility] GFR/1.73 sq M.predicted CKD-EPI vol rate/area (S/P/Bld) 108 Invalid Interpretation Code >=60 mL/min/1.73 m2 [facility] Glucose mass conc 96 mg/dL Invalid Interpretation Code 65 - 99 mg/dL [facility] HCO3 molar conc 26 mmol/L Invalid Interpretation Code 21 - 32 mmol/L [facility] Interpretation and review of laboratory results Abnormal Invalid Interpretation Code [facility] Potassium molar conc 4.2 mmol/L Invalid Interpretation Code 3.5 - 5.1 mmol/L [facility] Protein mass conc 6.9 g/dL Invalid Interpretation Code 6 - 8 g/dL [facility] Sodium molar conc 146 mmol/L High 135 - 145 mmol/L [facility] Urea nitrogen mass conc 33 mg/dL High 8 - 25 mg/dL [facility] Urea nitrogen/Creatinine mass ratio 70.2 mg/mg High [facility] Vitamin D, Total, 25-OHon 25-Hydroxyvitamin D2+25-Hydroxyvitamin D3 mass conc 72 ng/mL Invalid Interpretation Code 30 - 100 ng/mL [facility] Comment on above: Vitamin D status: De ficiency: <10 ng/mL Insufficiency: 10-30 ng/mL Sufficiency: 30-100 ng/mL Toxicity: >100 ng/mL Interpretation and review of laboratory results Normal Invalid Interpretation Code [facility] Assay performed usin g [employer] CLIA methodology. Invalid Interpretation Code [facility] CBC and Differentialon 08-25 Creatinine The following orders were created for panel order CBC and Differential. Procedure Abnormality Status --------- ------ CBC Auto Differential[[id number]] Abnormal Final result Please view results for these tests on the individual orders. Invalid Interpretation Code [facility] Comprehensive Metabolic Pane dwight 08-25-2017 Alanine aminotransferase (ALT) 18 U/L Invalid Interpretation Code 0 - 40 U/L [facility] Albumin 4.6 g/dL Invalid Interpretation Code 3.2 - 5.2 g/dL [facility] Alkaline phosphatase (ALP) 82 U/L Invalid Interpretation Code 40 - 150 U/L [facility] Anion gap 19 mmol/L Invalid Interpretation Code 10 - 20 mmol/L [facility] Aspartate aminotransferase (AST) 15 U/L Invalid Interpretation Code 0 - 45 U/L [facility] Bicarbonate (HCO3) 26 mmol/L Invalid Interpretation Code 21 - 32 mmol/L [facility] Bilirubin (total) mg/dL Invalid Interpretation Code 0 - 1.3 mg/dL [facility] BUN/Creatinine Ratio 48.1 mg/mg High 10.0 - 20.0 [facility] Calcium 10.3 mg/dL High 8.4 - 10.2 mg/dL [facility] Chloride 103 mmol/L Invalid Interpretation Code 98 - 108 mmol/L [facility] Creatinine 0.54 mg/dL Invalid Interpretation Code 0.4 - 1.1 mg/dL [facility] eGFR (non-black) The eGFR should be used for monitoring renal function only and not for medication dosing. Invalid Interpretation Code [facility] eGFR (non-black) 104 mL/min/{1.73_m2} Invalid Interpretation Code >=60 [facility] Glucose 86 mg/dL Invalid Interpretation Code 65 - 99 mg/dL [facility] Interpretation and review of laboratory results Abnormal Invalid Interpretation Code [facility] Potassium 4.3 mmol/L Invalid Interpretation Code 3.5 - 5.1 mmol/L [facility] Protein 6.9 g/dL Invalid Interpretation Code 6 - 8 g/dL [facility] Sodium 144 mmol/L Invalid Interpretation Code 135 - 145 mmol/L [facility] Urea nitrogen 26 mg/dL High 8 - 25 mg/dL [facility] Vitamin D, Total, 25-OHon Vit D, 25-Hydroxy 109 ng/mL High 30 - 100 ng/mL [facility] Vitamin D, Total, 25-OH Assay performed using [employer] CLIA methodology. Invalid Interpretation Code [facility] CBC and Differentialon 05-25 Creatinine The following orders were created for panel order CBC and Differential. Procedure Abnormality Status --------- ------ CBC Auto Differential[[id number]] Abnormal Final result Please view results for these tests on the individual orders. Invalid Interpretation Code [facility] Work Phone: Bronchoalveolar lavage cultu re with Gram stain Respiratory Culture Negative [facility] Work Phone: Culture, urine Bacteria identified Cx Nom (U) Mixed Gram Pos & Gram Neg Org [facility] Work Phone: Bacteria identified Cx Nom (U) Yeast [facility] Work Phone: Bacteria identified Cx Nom (U) Escherichia coli [facility] Work Phone: Gram stain for investigation of transfusion reaction Microscopic observation Gram stain Nom (Unsp spec) [facility] Work Phone: Laboratory - Microbiology an d Antimicrobial susceptibility Bacteria identified Cx Nom (Bld) No growth in 5 days. [facility] Work Phone: No Panel Information Streptococcus pneumoniae Antigen (M [facility] Work Phone: Vital Signs Date Time Vital Sign Value Performing Clinician Facility 07-05-2022 11:24-0500 Body height 162.[address] Joan Hughes Work Phone: [facility] 09-28-2021 12:05-0400 SaO2% (BldA) [Mass fraction] 98 % Dr. Joan Hughes Work Phone: [facility] Work Phone: 09-28-2021 09:00-0400 Body temperature 98 [degF] Dr. Joan Hughes Work Phone: [facility] Work Phone: 09-28-2021 09:00-0400 Diastolic blood pressure 79 mm[Hg] Dr. Joan Hughes Work Phone: [facility] Work Phone: 09-28-2021 09:00-0400 Heart rate 100 /min Dr. Joan Hughes Work Phone: [facility] Work Phone: 09-28-2021 09:00-0400 Respiratory rate 14 /min Dr. Joan Hughes Work Phone: [facility] Work Phone: 09-28-2021 09:00-0400 Systolic blood pressure 117 mm[Hg] Dr. Joan Hughes Work Phone: [facility] Work Phone: 09-28-2021 05:32-0400 Body weight 66.[address] Joan Hughes Work Phone: [facility] Work Phone: 09-25-2021 09:36-0400 Inhaled oxygen flow rate 2 L/min Dr. Joan Hughes Work Phone: [facility] Work Phone: 09-24-2021 11:58-0400 Body height 162.[address] Joan Hughes Work Phone: [facility] Work Phone: 09-23-2021 16:35-0400 Inhaled oxygen concentration 41 % Dr. Joan uHghes Work Phone: [facility] Work Phone: 09-16-2021 14:53-0400 Body mass index (BMI) [Ratio] 25.7 kg/m2 Dr. Joan Hughes Work Phone: [facility] Work Phone: 09-16-2021 14:11-0400 Body temperature 99.3 [degF] [facility] Work Phone: 09-16-2021 14:11-0400 Diastolic blood pressure 56 mm[Hg] [facility] Work Phone: 09-16-2021 14:11-0400 Heart rate 114 /min [facility] Work Phone: 09-16-2021 14:11-0400 Respiratory rate 16 /min [facility] Work Phone: 09-16-2021 14:11-0400 SaO2% (BldA) [Mass fraction] 95 % [facility] Work Phone: 09-16-2021 14:11-0400 Systolic blood pressure 132 mm[Hg] [facility] Work Phone: 09-16-2021 13:00-0400 Body height 162.56 cm [facility] Work Phone: 09-16-2021 13:00-0400 Body mass index (BMI) [Ratio] 26.8 kg/m2 [facility] Work Phone: 09-16-2021 13:00-0400 Body weight 70.8 kg [facility] Work Phone: 11-05-2021 13:25-0400 Body temperature 97.9 [degF] Chair [address] [facility] 04-09-2021 13:25-0400 Diastolic blood pressure 80 mm[Hg] Chair [address] [facility] 04-09-2021 13:25-0400 Heart rate 123 /min Chair [address] [facility] 04-09-2021 13:25-0400 SaO2% (BldA) [Mass fraction] 97 % Chair [address] [facility] 04-09-2021 13:25-0400 Systolic blood pressure 133 mm[Hg] Chair [address] [facility] 04-09-2021 11:06-0400 Respiratory rate 16 /min Chair [address] [facility] 04-09-2021 07:57-0400 Body height 162.6 cm Willard Epperson MD Work Phone: [facility] 04-09-2021 07:57-0400 Body mass index (BMI) [Ratio] 25.06 kg/m2 Willard Epperson MD Work Phone: [facility] 04-09-2021 07:57-0400 Body weight 66.22 kg Willard Epperson MD Work Phone: [facility] 04-09-2021 07:57-0400 Diastolic blood pressure 65 mm[Hg] Willard Epperson MD Work Phone: [facility] 04-09-2021 07:57-0400 Heart rate 111 /min Willard Epperson MD Work Phone: [facility] 04-09-2021 07:57-0400 Systolic blood pressure 123 mm[Hg] Willard Epperson MD Work Phone: [facility] 10-16-2020 12:50-0400 Body temperature 98.29 [degF] Chair [address] [facility] 10-16-2020 12:50-0400 Diastolic blood pressure 63 mm[Hg] Chair [address] [facility] 10-16-2020 12:50-0400 Heart rate 130 /min Chair [address] [facility] 10-16-2020 12:50-0400 SaO2% (BldA) [Mass fraction] 96 % Chair [address] [facility] 10-16-2020 12:50-0400 Systolic blood pressure 128 mm[Hg] Chair [address] [facility] 10-16-2020 11:34-0400 Respiratory rate 16 /min Chair [address] [facility] 04-17-2020 14:51-0500 BP Diastolic 70 mm[Hg] Chair [address] [facility] 04-17-2020 14:51-0500 BP Systolic 136 mm[Hg] Chair [address] [facility] 04-17-2020 14:51-0500 Pulse (Heart Rate) 126 /min Chair [address] [facility] 04-17-2020 14:51-0500 Pulse Oximetry 97 % Chair [address] [facility] 04-17-2020 14:51-0500 Respiratory Rate 16 /min Chair [address] [facility] 04-17-2020 14:48-0500 Body Temperature 98.4 [degF] Chair [address] [facility] 04-17-2020 10:41-0500 BMI (Body Mass Index) 22.31 kg/m2 Willard Epperson [facility] 04-17-2020 10:41-0500 Body weight 58.97 kg Willard Epperson [facility] 04-17-2020 10:41-0500 BP Diastolic 80 mm[Hg] Willard Epperson [facility] 04-17-2020 10:41-0500 BP Systolic 131 mm[Hg] Willard Epperson [facility] 04-17-2020 10:41-0500 Height 162.6 cm Willard Epperson [facility] 04-17-2020 10:41-0500 Pulse (Heart Rate) 86 /min Willard Epperson [facility] 10-18-2019 13:54-0400 Body Temperature 97.5 [degF] Chair [address] [facility] 10-18-2019 13:54-0400 BP Diastolic 79 mm[Hg] Chair [address] [facility] 10-18-2019 13:54-0400 BP Systolic 137 mm[Hg] Chair [address] [facility] 10-18-2019 13:54-0400 Pulse (Heart Rate) 112 /min Chair [address] [facility] 10-18-2019 13:54-0400 Pulse Oximetry 95 % Chair [address] [facility] 10-18-2019 13:54-0400 Respiratory Rate 20 /min Chair [address] [facility] 10-18-2019 07:03-0400 BMI (Body Mass Index) 22.31 kg/m2 Willard Epperson [facility] 10-18-2019 07:03-0400 Body weight 58.97 kg Willard Epperson [facility] 10-18-2019 07:03-0400 Height 162.6 cm Willard Epperson [facility] 04-12-2019 12:17-0500 BMI (Body Mass Index) 22.31 kg/m2 Willard Epperson [facility] 04-12-2019 12:17-0500 Body weight 58.97 kg Willard Epperson [facility] 04-12-2019 12:17-0500 BP Diastolic 78 mm[Hg] Willard Epperson [facility] 04-12-2019 12:17-0500 BP Systolic 124 mm[Hg] Willard Epperson [facility] 04-12-2019 12:17-0500 Height 162.6 cm Willard Epperson [facility] 04-12-2019 12:17-0500 Pulse (Heart Rate) 106 /min Willard Epperson [facility] 04-12-2019 12:12-0500 Body Temperature 97.9 [degF] Chair [address] [facility] 04-12-2019 12:12-0500 BP Diastolic 81 mm[Hg] Chair [address] [facility] 04-12-2019 12:12-0500 BP Systolic 134 mm[Hg] Chair [address] [facility] 04-12-2019 12:12-0500 Pulse (Heart Rate) 104 /min Chair [address] [facility] 04-12-2019 12:12-0500 Pulse Oximetry 97 % Chair [address] [facility] 04-12-2019 12:12-0500 Respiratory Rate 16 /min Chair [address] [facility] 10-12-2018 13:25-0400 Body Temperature 98.1 [degF] Chair [address] [facility] 10-12-2018 13:25-0400 BP Diastolic 74 mm[Hg] Chair [address] [facility] 10-12-2018 13:25-0400 BP Systolic 137 mm[Hg] Chair [address] [facility] 10-12-2018 13:25-0400 Pulse (Heart Rate) 130 /min Chair [address] [facility] 10-12-2018 13:25-0400 Pulse Oximetry 95 % Chair [address] [facility] 10-12-2018 10:14-0400 Respiratory Rate 14 /min Chair [address] [facility] 09-28-2018 15:44-0400 BMI (Body Mass Index) 22.31 kg/m2 Willard Epperson [facility] 09-28-2018 15:44-0400 Body weight 58.97 kg Willard Epperson [facility] 09-28-2018 15:44-0400 BP Diastolic 80 mm[Hg] Willard Epperson [facility] 09-28-2018 15:44-0400 BP Systolic 145 mm[Hg] Willard Epperson [facility] 09-28-2018 15:44-0400 Height 162.6 cm Willard Epperson [facility] 09-28-2018 15:44-0400 Pulse (Heart Rate) 89 /min Willard Epperson [facility] 09-28-2018 11:38-0400 BMI (Body Mass Index) 22.31 kg/m2 Willard Epperson [facility] 09-28-2018 11:38-0400 Height 162.6 cm Willard Epperson [facility] 09-28-2018 11:38-0400 Weight 58.97 kg Willard Epperson [facility] 01-19-2018 11:34-0400 BMI (Body Mass Index) 20.77 kg/m2 Willard Epperson [facility] 01-19-2018 11:34-0400 BP Diastolic 70 mm[Hg] Willard Epperson [facility] 01-19-2018 11:34-0400 BP Systolic 118 mm[Hg] Willard Epperson [facility] 01-19-2018 11:34-0400 Height 162.6 cm Willard Epperson [facility] 01-19-2018 11:34-0400 Pulse (Heart Rate) 76 /min Willard Epperson [facility] 01-19-2018 11:34-0400 Weight 54.88 kg Willard Epperson [facility] 10-11-2017 14:08-0400 Body Temperature 98.1 [degF] Chair [address] [facility] 10-11-2017 14:08-0400 BP Diastolic 79 mm[Hg] Chair [address] [facility] 10-11-2017 14:08-0400 BP Systolic 131 mm[Hg] Chair [address] [facility] 10-11-2017 14:08-0400 Pulse (Heart Rate) 106 /min Chair [address] [facility] 10-11-2017 14:08-0400 Pulse Oximetry 95 % Chair [address] [facility] 10-11-2017 14:08-0400 Respiratory Rate 14 /min Chair [address] [facility] 08-25-2017 11:31-0400 BMI (Body Mass Index) 22.31 kg/m2 Willard Epperson [facility] 08-25-2017 11:31-0400 BP Diastolic 83 mm[Hg] Willard Epperson [facility] 08-25-2017 11:31-0400 BP Systolic 137 mm[Hg] Willard Epperson [facility] 08-25-2017 11:31-0400 Height 162.6 cm Willard Epperson [facility] 08-25-2017 11:31-0400 Pulse (Heart Rate) 81 /min Willard Epperson [facility] 08-25-2017 11:31-0400 Weight 58.97 kg Willard Epperson [facility] 05-25-2017 09:23-0500 BMI (Body Mass Index) 22.49 kg/m2 Willard Epperson [facility] Work Phone: 05-25-2017 09:23-0500 BP Diastolic 74 mm[Hg] Willard Epperson [facility] Work Phone: 05-25-2017 09:23-0500 BP Systolic 104 mm[Hg] Willard Epperson [facility] Work Phone: 05-25-2017 09:23-0500 Height 162.6 cm Willard Epperson [facility] Work Phone: 05-25-2017 09:23-0500 Pulse (Heart Rate) 106 /min Willard Epperson [facility] Work Phone: 05-25-2017 09:23-0500 Weight 59.42 kg Willard Epperson [facility] Work Phone: 05-04-2017 13:10-0500 Body Temperature 98.29 [degF] Physician No [facility] Work Phone: 05-04-2017 13:10-0500 BP Diastolic 77 mm[Hg] Physician No [facility] Work Phone: 05-04-2017 13:10-0500 BP Systolic 121 mm[Hg] Physician No [facility] Work Phone: 05-04-2017 13:10-0500 Pulse (Heart Rate) 104 /min Physician No [facility] Work Phone: 05-04-2017 13:10-0500 Pulse Oximetry 96 % Physician No [facility] Work Phone: 05-04-2017 11:55-0500 Respiratory Rate 14 /min Physician No [facility] Work Phone: 04-13-2017 16:00-0500 Body Temperature 98.01 [degF] Physician No [facility] Work Phone: 04-13-2017 16:00-0500 BP Diastolic 77 mm[Hg] Physician No [facility] Work Phone: 04-13-2017 16:00-0500 BP Systolic 137 mm[Hg] Physician No [facility] Work Phone: 04-13-2017 16:00-0500 Pulse (Heart Rate) 115 /min Physician No [facility] Work Phone: 04-13-2017 16:00-0500 Pulse Oximetry 96 % Physician No [facility] Work Phone: 04-13-2017 16:00-0500 Respiratory Rate 16 /min Physician No [facility] Work Phone: 02-13-2017 09:07-0400 BMI (Body Mass Index) 21.8 kg/m2 Willardben Epperson [facility] Work Phone: 02-13-2017 09:07-0400 BP Diastolic 81 mm[Hg] Willard Epperson [facility] Work Phone: 02-13-2017 09:07-0400 BP Systolic 145 mm[Hg] Willard Epperson [facility] Work Phone: 02-13-2017 09:07-0400 Height 162.6 cm Willard Epperson [facility] Work Phone: 02-13-2017 09:07-0400 Pulse (Heart Rate) 73 /min Willard Epperson [facility] Work Phone: 02-13-2017 09:07-0400 Weight 57.61 kg Willard Epperson [facility] Work Phone: Encounters Encounter Date Encounter Type Care Provider Facility Start: 12-16-2024 ambulatory Joan Dorianck Facilit y:[facility] Start: 12-16-2024 Registered Referred Breanne Ruiz MD [facility] Start: 12-13-2024 ambulatory Joan Elderbrock Facilit y:[facility] Start: 12[facility]13[facility]24 [facility]: 12-04-[facility]24 ambulatory Joan Dorianck Facilit y:[facility] Start: 12-04-2024 Registered Referred Breanne Ruiz MD -[facility] Start: 11-15-2024 ambulatory Joan Hughes Facilit y:[facility] Start: 11-15-2024 Registered Referred Breanne Ruiz MD -[facility] Start: 11-07-2024 ambulatory Joan Hughes Facilit y:[facility] Start: 11-07-2024 [facility] Start: 11-05-2024 ambulatory Joan Hughes Facilit y:[facility] Start: 11-05-2024 Registered Referred Britney Elin RESIDENT CARE AID-C -[facility] Start: 10-11-2024 End: 10-11-[address] Joan Hughes MD Work Phone: [facility] Start: 10-11-2024 End: 10-11-2024 Patient encounter procedure Britneyrose Worthington -[facility] Work Phone: Start: 10-11-2024 End: 10-11-[address] Joan Hughes MD Work Phone: [facility] Work Phone: Start: 10-11-2024 End: 10-11-2024 Departed Referred Britney Worthington RESIDENT CARE AID-C -[facility] Start: 10-11-2024 Registered Referred Britney Elin RESIDENT CARE AID-C -[facility] Start: 10-11-2024 End: 10-11-2024 ambulatory Joan Hughes Facility:[facility] Start: 10-08-2024 End: 10-08-[address] Joan Hughes MD Work Phone: [facility] Work Phone: Start: 10-08-2024 End: 10-08-2024 [facility]: 10-07-2024 End: 10-08-[address] Joan Hughes MD Work Phone: [facility] Start: 10-07-2024 End: 10-07-2024 Patient encounter procedure Britney Worthington RESIDENT CARE AID-[place] -[facility] Work Phone: Start: 09-04-2024 End: 09-04-2024 [facility]: [facility]04-[facility] Start: 09-03-2024 End: 09-04-2024 ambulatory Efewtracy Vange OLS Facility:[facility] Start: 09-03-2024 End: 09-03-[address] Breanne Ruiz MD -[facility] Work Phone: Start: 09-03-2024 End: 09-03-2024 [facility]: [facility]-03-[facility]24 [facility] Start: 09-03-2024 End: 09-03-2024 ambulatory Efewlalitabe Isaelmichaele OLS Facility:[facility] Start: 08-19-2024 End: 08-19-2024 ambulatory Britney Worthington NP Facility:[facility] Start: 08-19-2024 End: 08-19-2024 Patient encounter procedure Britney Worthington RESIDENT CARE AID- -[facility] Work Phone: Start: 08-19-2024 End: 08-19-[address] Joan Hughes MD Work Phone: [facility] Work Phone: Start: 08-19-2024 End: 08-19-2024 [facility] Start: 08-19-2024 End: 08-19-2024 ambulatory Efewlalitabe Cierae OLS Facility:[facility] Start: 08-06-2024 End: 08-06-[address] Joan Hughes MD Work Phone: [facility] Work Phone: Start: 08-06-2024 End: 08-06-2024 [facility]: 08-06-[facility]24 [facility] Start: 08-05-2024 End: 08-06-2024 ambulatory Efewongbe Isaelghe OLS Facility:[facility] Start: 08-05-2024 End: 08-05-2024 Patient encounter procedure Britney Worthington RESIDENT CARE AID-[facility] Work Phone: Start: 07-09-2024 End: 07-09-[address] Breanne Ruiz MD -[facility] Work Phone: Start: 07-09-2024 End: 07-09-2024 ambulatory Efewongbe Cierae Facility:[facility] Start: 07-09-2024 [facility] Start: 06-18-2024 End: 06-18-2024 ambulatory Britney Worthington RESIDENT CARE AID Facility:[facility] Start: 06-18-2024 End: 06-18-2024 [facility] Start: 06-11-2024 ambulatory Efewongbe Isaelghe OLS Fa cility:[facility] Start: 06-11-2024 [facility] Start: 06-07-2024 End: 06-07-2024 ambulatory Britney Worthington RESIDENT CARE AID Facility:[facility] Start: 06-07-2024 End: 06-07-2024 [facility] Start: 05-07-2024 End: 05-07-2024 ambulatory Efewongbe Oleghe Facility:[facility] Start: 05-07-2024 End: 05-07-2024 ambulatory Efewongbe Oleghe OLS Facility:[facility] Start: 05-01-2024 End: 05-01-2024 ambulatory [facility] Facility:[facility] Start: 04-15-2024 End: 04-15-2024 ambulatory Efewongbe Oleghe OLS Facility:[facility] Start: 04-10-2024 End: 04-10-2024 ambulatory Britney Worthington RESIDENT CARE AID Facility:[facility] Start: 04-09-2024 End: 04-09-2024 ambulatory Breanne Ruiz OLS Facility:[facility] Start: 03-28-2024 End: 03-28-2024 ambulatory Joan Hughes Facility:[facility] Start: 03-19-2024 End: 03-19-2024 ambulatory Joan Ashleyalexanderrafael Facility:[facility] Start: 03-07-2024 ambulatory Breanne Ruiz OLS Fa cility:[facility] Start: 03-05-2024 End: 03-05-2024 ambulatory Joan Hughes Facility:[facility] Start: 02-27-2024 ambulatory Breanne Vange OLS Fa cility:[facility] Start: 02-07-2024 End: 02-07-2024 ambulatory Joan Hughes Facility:[facility] Start: 02-06-2024 ambulatory Joan Hughes Facilit y:[facility] Start: 01-22-2024 ambulatory Joan Hughes Facilit y:[facility] Start: 01-09-2024 End: 01-10-2024 ambulatory Joan Hughes Facility:[facility] Start: 01-09-2024 End: 01-09-2024 ambulatory Joan Dionanalilia Facility:[facility] Start: 09-12-2023 End: 09-12-[address] Joan Hughse Work Phone: [facility] Work Phone: Start: 09-05-2023 End: 09-05-[address] Joan Hughes Work Phone: [facility] Work Phone: Start: 09-05-2023 End: 09-05-[address] Joan Hughes Work Phone: [facility] Start: 08-14-2023 End: 08-14-[address] Joan Hughes Work Phone: [facility] Work Phone: Start: 08-10-2023 End: 08-10-[address] Joan Hughes Work Phone: [facility] Start: 08-10-[address] Joan lacy Work Phone: [facility] Start: 08-08-2023 End: 08-08-[address] Joan Hughes Work Phone: [facility] Work Phone: Start: 08-08-2023 End: 08-08-[address] Joan Hughes Work Phone: [facility] Start: 07-17-2023 End: 07-17-[address] Joan Hughes Work Phone: [facility] Work Phone: Start: 07-17-2023 End: 07-17-[address] [facility] [facility] Start: 07-11-2023 End: 07-11-[address] Joan Hughes Work Phone: [facility] Work Phone: Start: 07-03-2023 End: 07-03-[address] Joan Hughes Work Phone: [facility] Work Phone: Start: 07-03-2023 End: 07-03-[address] Joan Hughes Work Phone: [facility] Start: 07-03-[address] Joan lacy Work Phone: [facility] Start: 06-26-2023 End: 06-26-[address] Joan Hughes Work Phone: [facility] Work Phone: Start: 06-08-2023 End: 06-08-[address] Joan Hughes Work Phone: [facility] Work Phone: Start: 06-06-2023 End: 06-06-[address] Joan Hughes Work Phone: [facility] Work Phone: Start: 06-06-2023 End: 06-06-[address] Joan Hughes Work Phone: [facility] Start: 05-09-2023 End: 05-09-[address] Joan Hughes Work Phone: [facility] Work Phone: Start: 05-09-2023 End: 05-09-[address] Joan Hughes Work Phone: [facility] Work Phone: Start: 05-09-2023 End: 05-09-[address] Joan Hughes Work Phone: [facility] Start: 05-01-2023 End: 05-01-[address] Joan Hughes Work Phone: [facility] Work Phone: Start: 03-14-2023 End: 03-14-[address] Joan Hughes Work Phone: [facility] Work Phone: Start: 03-10-2023 End: 03-10-[address] Joan Hughes Work Phone: [facility] Work Phone: Start: 02-27-2023 End: 02-27-[address] Joan Hughes Work Phone: [facility] Work Phone: Start: 02-22-2023 End: 02-22-[address] Joan Hughes Work Phone: [facility] Start: 02-22-[address] Joan lacy Work Phone: [facility] Start: 02-21-2023 End: 02-21-[address] Joan Hughes Work Phone: [facility] Start: 02-21-[address] Joan lacy Work Phone: [facility] Start: 02-13-2023 End: 02-13-[address] Joan Hughes Work Phone: [facility] Work Phone: Start: 02-13-2023 End: 02-13-[address] Joan Hughes Work Phone: [facility] Start: 02-13-[address] Joan lacy Work Phone: [facility] Start: 02-07-2023 End: 02-07-[address] Joan Hughes Work Phone: [facility] Work Phone: Start: 02-07-2023 End: 02-07-[address] Joan Hughes Work Phone: [facility] Start: 01-24-2023 End: 01-24-[address] Joan Hughes Work Phone: [facility] Start: 01-24-[address] Joan lacy Work Phone: [facility] Start: 01-10-2023 End: 01-10-[address] Joan Hughes Work Phone: [facility] Work Phone: Start: 01-10-2023 End: 01-10-[address] Joan Hughes Work Phone: [facility] Start: 01-10-[address] Joan lacy Work Phone: [facility] Start: 01-03-2023 End: 01-03-[address] Joan Hughes Work Phone: [facility] Work Phone: Start: 12-27-2022 End: 12-27-[address] Joan Hughes Work Phone: [facility] Work Phone: Start: 12-27-2022 End: 12-27-[address] Joan Hughes Work Phone: [facility] Start: 12-27-[address] Joan lacy Work Phone: [facility] Start: 12-23-2022 End: 12-23-[address] Joan Hughes Work Phone: [facility] Work Phone: Start: 12-13-2022 End: 12-13-[address] Joan Hughes Work Phone: [facility] Work Phone: Start: 12-13-2022 End: 12-13-[address] Joan Hughes Work Phone: [facility] Start: 12-13-[address] Joan lacy Work Phone: [facility] Start: 11-29-2022 End: 11-29-[address] Joan Hughes Work Phone: [facility] Work Phone: Start: 11-29-2022 End: 11-29-[address] Joan Hughes Work Phone: [facility] Start: 11-29-[address] Joan lacy Work Phone: [facility] Start: 11-15-2022 End: 11-15-[address] Joan Hughes Work Phone: [facility] Start: 11-15-[address] Joan lacy Work Phone: [facility] Start: 11-08-2022 End: 11-08-[address] Joan Hughes Work Phone: [facility] Work Phone: Start: 11-01-2022 End: 11-01-[address] Joan Hughes Work Phone: [facility] Work Phone: Start: 11-01-2022 End: 11-01-[address] Joan Hughes Work Phone: [facility] Start: 10-27-2022 End: 10-27-[address] Joan Hughes Work Phone: [facility] Work Phone: Start: 10-18-2022 End: 10-18-[address] Joan Hughes Work Phone: [facility] Start: 10-18-[address] Joan lacy Work Phone: [facility] Start: 10-04-2022 End: 10-04-[address] Joan Hughes Work Phone: [facility] Work Phone: Start: 10-04-2022 End: 10-04-[address] Joan Hughes Work Phone: [facility] Start: 09-20-2022 End: 09-20-[address] Joan Hughes Work Phone: [facility] Work Phone: Start: 09-20-2022 End: 09-20-[address] Joan Hughes Work Phone: [facility] Start: 09-20-[address] Joan lacy Work Phone: [facility] Start: 09-06-2022 End: 09-06-[address] Joan Hughes Work Phone: [facility] Start: 09-06-2022 End: 09-06-[address] Joan Hughes Work Phone: [facility] Work Phone: Start: 09-06-2022 End: 09-06-[address] Joan Hughes Work Phone: [facility] Start: 09-06-[address] Joan lacy Work Phone: [facility] Start: 08-23-2022 End: 08-23-[address] Joan Hughes Work Phone: [facility] Start: 08-23-2022 End: 08-23-[address] Joan Hughes Work Phone: [facility] Work Phone: Start: 08-23-2022 End: 08-23-[address] Joan Hughes Work Phone: [facility] Start: 08-23-[address] Joan lacy Work Phone: [facility] Start: 08-09-2022 End: 08-09-[address] Joan Hughes Work Phone: [facility] Work Phone: Start: 08-09-2022 End: 08-09-[address] Joan Hughes Work Phone: [facility] Start: 08-09-[address] Joan lacy Work Phone: [facility] Start: 07-26-2022 End: 07-26-[address] Joan Hughes Work Phone: [facility] Work Phone: Start: 07-26-2022 End: 07-26-[address] Joan Hughes Work Phone: [facility] Start: 07-26-[address] Joan lacy Work Phone: [facility] Start: 07-13-2022 End: 07-13-[address] Joan Hughes Work Phone: [facility] Work Phone: Start: 07-13-2022 End: 07-13-[address] Joan Hughes Work Phone: [facility] Start: 07-13-[address] Joan lacy Work Phone: [facility] Start: 07-12-2022 End: 07-12-[address] Joan Hughes Work Phone: [facility] Start: 07-12-2022 End: 07-12-[address] Joan Hughes Work Phone: [facility] Work Phone: Start: 07-12-2022 End: 07-12-[address] Joan Hughes Work Phone: [facility] Start: 07-04-2022 End: 07-04-[address] Joan Hughes Work Phone: [facility] Start: 06-28-2022 End: 06-28-[address] Joan Hughes Work Phone: [facility] Work Phone: Start: 06-28-2022 End: 06-28-[address] Joan Hughes Work Phone: [facility] Start: 06-27-2022 End: 06-27-[address] Joan Hughes Work Phone: [facility] Start: 06-23-2022 End: 06-23-2022 Telemedicine consultation with patient Willard Epperson MD Work Phone: [facility] Comment on above: Multiple sclerosis, primary progressive (HCC) (Primary Dx) Start: 06-14-2022 End: 06-14-[address] Joan Hughes Work Phone: [facility] Start: 06-14-[address] Joan lacy Work Phone: [facility] Start: 06-03-2022 End: 06-03-[address] Joan Hughes Work Phone: [facility] Start: 06-03-2022 End: 06-03-[address] Joan Hughes Work Phone: [facility] Work Phone: Start: 06-03-2022 End: 06-03-[address] Joan Hughes Work Phone: [facility] Start: 06-03-[address] Joan lacy Work Phone: [facility] Start: 06-01-2022 End: 06-01-[address] Joan Hughes Work Phone: [facility] Work Phone: Start: 06-01-2022 End: 06-01-[address] Joan Hughes Work Phone: [facility] Start: 06-01-[address] Joan lacy Work Phone: [facility] Start: 05-31-[address] Joan lacy Work Phone: [facility] Start: 05-28-2022 End: 05-28-[address] Joan Hughes Work Phone: [facility] Start: 05-28-[address] Joan lacy Work Phone: [facility] Start: 05-27-2022 End: 05-27-[address] Joan Hughes Work Phone: [facility] Work Phone: Start: 05-27-2022 End: 05-27-[address] Joan Hughes Work Phone: [facility] Start: 05-27-[address] Joan lacy Work Phone: [facility] Start: 05-17-2022 End: 05-17-[address] Joan Hughes Work Phone: [facility] Work Phone: Start: 05-17-2022 End: 05-17-[address] Joan Hughes Work Phone: [facility] Start: 05-17-[address] Joan lacy Work Phone: [facility] Start: 05-03-2022 End: 05-03-[address] Joan Hughes Work Phone: [facility] Work Phone: Start: 05-03-2022 End: 05-03-[address] Joan Hughes Work Phone: [facility] Start: 04-19-2022 End: 04-19-[address] Joan Hughes Work Phone: [facility] Start: 04-19-[address] Joan lacy Work Phone: [facility] Start: 04-09-2022 End: 04-09-[address] Joan Hughes Work Phone: [facility] Start: 04-05-2022 End: 04-05-[address] Joan Hughes Work Phone: [facility] Start: 04-05-2022 End: 04-05-[address] Joan Hughes Work Phone: [facility] Work Phone: Start: 04-05-2022 End: 04-05-[address] Joan Hughes Work Phone: [facility] Start: 04-05-[address] Joan lacy Work Phone: [facility] Start: 03-22-2022 End: 03-22-[address] Joan Hughes Work Phone: [facility] Work Phone: Start: 03-22-2022 End: 03-22-[address] Joan Hughes Work Phone: [facility] Start: 03-22-[address] Joan lacy Work Phone: [facility] Start: 03-08-2022 End: 03-08-[address] Joan Hughes Work Phone: [facility] Work Phone: Start: 03-08-2022 End: 03-08-[address] Joan Hughes Work Phone: [facility] Start: 02-22-2022 End: 02-22-[address] Joan Hughes Work Phone: [facility] Work Phone: Start: 02-22-2022 End: 02-22-[address] Joan Hughes Work Phone: [facility] Start: 02-22-[address] Joan lacy Work Phone: [facility] Start: 02-17-2022 End: 02-17-[address] Joan Hughes Work Phone: [facility] Start: 02-08-2022 End: 02-08-[address] Joan Hughes Work Phone: [facility] Work Phone: Start: 02-08-2022 End: 02-08-[address] Joan Hughes Work Phone: [facility] Start: 02-08-[address] Joan lacy Work Phone: [facility] Start: 01-25-2022 End: 01-25-[address] Joan Hughes Work Phone: [facility] Work Phone: Start: 01-25-2022 End: 01-25-[address] Joan Hughes Work Phone: [facility] Start: 01-25-[address] Joan lacy Work Phone: [facility] Start: 01-14-2022 ambulatory [facility] Start: 01-11-2022 End: 01-11-[address] Joan Hughes Work Phone: [facility] Work Phone: Start: 01-11-2022 End: 01-11-[address] Joan Hughes Work Phone: [facility] Start: 12-28-2021 End: 12-28-[address] Joan Hughes Work Phone: [facility] Start: 12-14-2021 End: 12-14-[address] Jona Hughes Work Phone: [facility] Start: 12-01-2021 ambulatory Joan villanueva MD Work Phone: [facility] [place] Start: 11-30-2021 End: 11-30-[address] Joan Hughes Work Phone: [facility] Start: 11-16-2021 End: 11-16-[address] Joan Hughes Work Phone: [facility] Start: 11-16-[address] Joan lacy Work Phone: [facility] Start: 11-13-2021 End: 11-13-[address] Joan Hughes Work Phone: [facility] Start: 11-12-2021 End: 11-12-[address] Joan Hughes Work Phone: [facility] Start: 11-02-2021 End: 11-02-[address] Joan Hughes Work Phone: [facility] Start: 11-02-[address] Joan lacy Work Phone: [facility] Start: 10-25-2021 End: 10-25-[address] Joan Hughes Work Phone: [facility] Start: 10-25-[address] Joan lacy Work Phone: [facility] Start: 10-18-2021 End: 10-18-[address] Joan Hughes Work Phone: [facility] Start: 10-18-[address] Joan lacy Work Phone: [facility] Start: 10-11-2021 End: 10-11-[address] Joan Hughes Work Phone: [facility] Start: 10-08-2021 End: 10-08-[address] Joan Hughes Work Phone: [facility] Start: 09-28-2021 Non-patient / Non-visit Dr. Michael Hughes Work Phone: [facility] Start: 09-27-2021 Non-patient / Non-visit Dr. Michael Hughes Work Phone: [facility] Start: 09-26-2021 Non-patient / Non-visit Dr. Michael Hughes Work Phone: [facility] Start: 09-25-2021 Non-patient / Non-visit Dr. Michael Hughes Work Phone: [facility] Start: 09-25-2021 Non-patient / Non-visit Dr. Michael Hughes Work Phone: [facility] Start: 09-24-2021 Non-patient / Non-visit Dr. Michael Hughes Work Phone: [facility] Start: 09-24-2021 Non-patient / Non-visit Dr. Michael Hughes Work Phone: [facility] Start: 09-23-2021 Non-patient / Non-[facility] Work Phone: [facility] Start: 09-23-2021 Non-patient / Non-visit Dr. Michael perry [facility] Work Phone: [facility] Start: 09-22-2021 Non-patient / Non-visit Dr. Michael perry [employer] Work Phone: [facility] Start: 09-22-2021 Non-patient / Non-visit Dr. Michael perry [employer] Work Phone: [facility] Start: 09-21-2021 Coordination of care plan Mer Prado RN [facility] Start: 09-21-2021 Non-patient / Non-visit Dr. Michael perry [place] Work Phone: [facility] Start: 09-21-2021 Non-patient / Non-visit Dr. Michael perry [employer] Work Phone: [facility] Start: 09-20-2021 Non-patient / Non-visit Dr. Michael perry [place] Work Phone: [facility] Start: 09-20-2021 Non-patient / Non-visit Dr. Michael perry [place] Work Phone: [facility] Start: 09-19-2021 Non-patient / Non-visit Dr. Michael perry [place] Work Phone: [facility] Start: 09-19-2021 Non-patient / Non-visit Dr. Michael perry [employer] Work Phone: [facility] Start: 09-18-2021 Non-patient / Non-visit Dr. Michael perry [employer] Work Phone: [facility] Start: 04-15-2022 Non-patient / Non-visit Dr. Michael Hughes Work Phone: [facility] Start: 09-16-2021 Non-patient / Non-visit Dr. Michael Hughes Work Phone: [facility] Start: 09-16-2021 End: 09-28-2021 Evaluation and management of inpatient [facility] Start: 07-22-[address] [facility] Start: 04-09-2021 End: 04-13-2021 ambulatory [facility] Start: 04-09-2021 End: 04-09-2021 Office outpatient visit 40 minutes Willard Epperson MD Work Phone: [facility] Comment on above: Multiple sclerosis, primary progressive (HCC) (Primary Dx); Vitamin D deficiency; Spasticity; Ataxia; Cognitive impairment Start: 04-09-2021 End: 04-09-2021 ambulatory Willard Epperson MD Work Phone: [facility] Comment on above: Multiple sclerosis, primary progressive (HCC) (Primary Dx); Multiple sclerosis (HCC) Start: 04-08-2021 Coordination of care plan Zahra Pratt RN [facility] Start: 01-08-2021 End: 01-08-2021 Refill Danyell Cardoso MA [facility] Comment on above: Vitamin D deficiency Start: 10-29-2020 End: 10-29-2020 Orders Only Willard Epperson MD Work Phone: [facility] Comment on above: Multiple sclerosis, primary progressive (HCC) (Primary Dx) Start: 10-16-2020 End: 10-20-2020 ambulatory WILLARD EPPERSON [facility] Start: 10-16-2020 End: 10-16-2020 Office outpatient visit 25 minutes Willard Epperson MD Work Phone: [facility] Comment on above: Multiple sclerosis, primary progressive (HCC) (Primary Dx); Vitamin D deficiency; Paresis of lower extremity (HCC); History of gait disorder Start: 10-16-2020 End: 10-16-2020 ambulatory WILLARD EPPERSON [facility] Start: 10-16-2020 End: 10-16-2020 ambulatory Willard Epperson MD Work Phone: [facility] Comment on above: Multiple sclerosis, primary progressive (HCC) (Primary Dx) Start: 10-13-2020 End: 10-13-2020 Orders Only Willard Epperson MD Work Phone: [facility] Start: 10-12-2020 End: 10-12-2020 Coordination of care plan Fifi Guillermo RN [facility] Start: 10-07-2020 End: 10-07-2020 Coordination of care plan Fifi Guillermo RN [facility] Start: 08-06-2020 End: 08-06-2020 Orders Only Hermila Bowen Work Phone: [facility] Start: 04-21-2020 End: 04-21-2020 Documentation procedure Jeanne Hilario [facility] Start: 04-17-2020 End: 04-17-2020 ambulatory WILLARD EPPERSON [facility] Start: 04-17-2020 End: 04-17-2020 Office outpatient visit 25 minutes Willard Epperson Work Phone: [facility] Comment on above: Multiple sclerosis ( HCC) (Primary Dx); Fatigue, unspecified type; Orthostasis; Falls frequently Start: 04-17-2020 End: 04-17-2020 Patient encounter procedure Willard Epperson Work Phone: [facility] Comment on above: Multiple sclerosis, primary progressive (HCC) (Primary Dx) Start: 04-13-2020 End: 04-13-2020 Coordination of care plan Amrit Hilario [facility] Start: 10-29-2019 End: 10-29-2019 Admission to [facility] Start: 10-24-2019 End: 10-24-2019 Documentation procedure Jeanne Hilario [facility] Start: 10-18-2019 End: 10-18-2019 Phys/qhp telephone evaluation 11-20 min Willard Epperson Work Phone: [facility] Comment on above: Multiple sclerosis ( HCC) Start: 10-18-2019 End: 10-18-2019 Patient encounter procedure Willard Epperson Work Phone: [facility] Comment on above: Multiple sclerosis, primary progressive (HCC) (Primary Dx) Start: 10-18-2019 End: 10-18-2019 Subsequent hospital visit by physician Willard Epperson Work Phone: [facility] Comment on above: Multiple sclerosis ( HCC) Start: 10-09-2019 End: 10-09-2019 Coordination of care plan Amrit Hilario [facility] Start: 04-18-2019 End: 04-18-2019 Documentation procedure Jeanne Hilario [facility] Start: 04-12-2019 End: 04-12-2019 Office outpatient visit 25 minutes Willard Epperson Work Phone: [facility] Comment on above: Multiple sclerosis ( HCC) (Primary Dx) Start: 04-12-2019 End: 04-12-2019 Patient encounter procedure Willard pEperson Work Phone: [facility] Comment on above: Multiple sclerosis, primary progressive (HCC) (Primary Dx); Multiple sclerosis (HCC) Start: 04-11-2019 End: 04-11-2019 Coordination of care plan Melva Zuleta [facility] Start: 10-12-2018 End: 10-12-2018 Patient encounter procedure Willard Epperson Work Phone: [facility] Comment on above: Multiple sclerosis, primary progressive (HCC) (Primary Dx) Start: 09-28-2018 End: 09-28-2018 Office outpatient visit 25 minutes Willard Epperson Work Phone: [facility] Comment on above: Multiple sclerosis ( HCC) (Primary Dx); Therapeutic drug monitoring Start: 09-28-2018 End: 09-28-2018 Patient encounter procedure Willard Epperson Work Phone: [facility] Comment on above: Multiple sclerosis ( HCC) Start: 01-23-2018 Patient encounter Jeanne Hilario [facility] Start: 01-19-2018 End: 01-19-2018 Office outpatient visit 40 minutes C Willard Epperson Work Phone: [facility] Start: 10-11-2017 End: 10-11-2017 Ambulatory Murtaza Fish Work Phone: [facility] Start: 08-25-2017 Office/outpatient vi sit, est, level 4 Willard Epperson Work Phone: [facility] Start: 08-11-2017 Ambulatory Jeanne Hilario [facility] Start: 05-25-2017 Ambulatory Jeanne Hilario [facility] Start: 05-25-2017 Office/outpatient vi sit, est, level 4 Willard Epperson Work Phone: [facility] Start: 05-04-2017 Ambulatory Murtaza muñoz Work Phone: [facility] Start: 04-13-2017 Ambulatory Murtaza muñoz Work Phone: [facility] Start: 02-13-2017 End: 02-13-2017 Documentation procedure Jeanne Hilario [facility] Start: 02-13-2017 Office/outpatient vi sit, est, level 4 Willard Epperson Work Phone: [facility] Start: 01-25-2017 Ambulatory Jeanne Sulaiman [facility] Procedures Date Procedure Procedure [...] 10-11-2024 End: 10-11-[address] oJan villanueva MD Work Phone: Start: 08-19-2024 Gram [...] Work Phone: Respiratory microbia l culture Dr. Jona Hughes Work Phone: Streptococcus pneumo niae Antigen (M Dr. Joan Hughes Work Phone: Urine culture Dr. Joan billingsley Work Phone: Urine culture Dr. Joan billingsley Work Phone: Plan of Treatment Date Care Activity Detail Author Start: 10-01-2028 Screening for malignant neoplasm of colon [facility] Start: 11-15-2024 Bacteria identified in Urine by Culture Urine Culture [facility] Start: 11-15-2024 [facility] Start: 10-02-2023 Colonoscopy COLONOSCOPY [facility] Start: 10-02-2023 COLORECTAL CANCER SCREENING COLORECTAL CANCER SCREENING [facility] Start: 02-08-[address] [facility] Start: 02-08-2022 Urine microalbumin profile DTAP,TDAP,TD (2 - Td or Tdap) [facility] Start: 02-03-2022 Influenza vaccination [facility] Start: 09-28-2021 Patient discharge [facility] Work Phone: Start: 09-28-2021 End: 09-28-2021 ambulatory [facility] Start: 09-28-2021 End: 09-28-2021 Patient encounter procedure [facility] Start: 09-27-2021 End: 09-27-2021 Patient encounter procedure [facility] Start: 09-21-2021 Following clinical pathway protocol [facility] Work Phone: Start: 09-21-2021 [facility] Work Phone: Start: 09-20-2021 Care planning and problem solving actions [facility] Work Phone: Start: 09-18-2021 Catheterization of vein [facility] Work Phone: Start: 09-18-2021 Consultation [facility] Work Phone: Start: 09-18-2021 Incentive spirometry [facility] Work Phone: Start: 09-18-2021 Insertion of catheter into peripheral vein [facility] Work Phone: Start: 09-18-2021 Measuring intake and output [facility] Work Phone: Start: 09-18-2021 Oxygen therapy [facility] Work Phone: Start: 09-18-2021 Physiotherapy of chest [facility] Work Phone: Start: 09-18-2021 Providing care according to standard [facility] Work Phone: Start: 09-18-2021 Vital signs measurements [facility] Work Phone: Start: 09-18-2021 [facility] Work Phone: Start: 09-18-2021 Care planning and problem solving actions [facility] Work Phone: Start: 09-18-2021 Continuous positive airway pressure ventilation treatment [facility] Work Phone: Start: 09-17-2021 Speech therapy assessment [facility] Work Phone: Start: 09-17-2021 [facility] Work Phone: Start: 09-16-2021 Ambulation without limitation [facility] Work Phone: Start: 09-16-2021 Assessment of risk of venous thromboembolism [facility] Work Phone: Start: 09-16-2021 Insertion of catheter into peripheral vein [facility] Work Phone: Start: 09-16-2021 Providing care according to standard [facility] Work Phone: Start: 09-16-2021 Referral to occupational therapist [facility] Work Phone: Start: 09-16-2021 Referral to service [facility] Work Phone: Start: 09-16-2021 [facility] Work Phone: Start: 09-16-2021 Following clinical pathway protocol [facility] Work Phone: Start: 09-16-2021 Admission procedure [facility] Work Phone: Start: 09-16-2021 Bacteria identified in Blood by Culture Blood Culture [facility] Work Phone: Start: 09-16-2021 Bacteria identified in Urine by Culture Urine Culture [facility] Work Phone: Start: 04-23-2021 COVID-19 Vaccine (3 - Booster for Pfizer series) COVID-19 Vaccine (3 - Booster for Pfizer series) [facility] Start: 04-16-2021 End: 04-16-2021 ambulatory 04/16/2021 Infusion/Injection Infusion Therapy [facility] Start: 04-09-2021 End: 04-09-2021 ambulatory 04/09/2021 Infusion/Injection Infusion Therapy [facility] Start: 04-09-2021 End: 04-09-2021 Patient encounter procedure 04/09/2021 Office Visit Neurology Willard Epperson MD [address] [place] [id number] [phone] [facility] Start: 03-23-2021 COVID-19 Vaccine (3 - Booster for Pfizer series) COVID-19 Vaccine (3 - Booster for Pfizer series) [facility] Start: 03-10-2021 Screening for malignant neoplasm of breast Mammogram [facility] Start: 03-10-2021 Screening mammography Mammogram [facility] Start: 03-05-2021 End: 10-19-2021 MR Brain With And Without Contrast MR Brain With And Without Contrast Imaging Routine Multiple sclerosis, primary progressive (HCC) Expected: 03/05/2021, Expires: 10/19/[address] [facility] Comment on above: Expected: 03/05/2021, Expires: 2 Start: 03-05-2021 End: 10-19-2021 MRI of cervical spine MR Cervical Spine With And Without Contrast Imaging Routine Multiple sclerosis, primary progressive (HCC) Expected: 03/05/2021, Expires: 10/19/[address] [facility] Comment on above: Expected: 03/05/2021, Expires: 2 Start: 03-05-2021 End: 10-19-2021 MRI of thoracic spine MR Thoracic Spine With And Without Contrast Imaging Routine Multiple sclerosis, primary progressive (HCC) Expected: 03/05/2021, Expires: 10/19/[address] [facility] Comment on above: Expected: 03/05/2021, Expires: 2 Start: 02-03-[address] [facility] Start: 12-16-2020 COVID-19 Vaccine (3 - Booster for Pfizer series) COVID-19 Vaccine (3 - Booster for Pfizer series) [facility] Start: 10-19-2020 COVID-19 Vaccine (2 - Pfizer 2-dose series) COVID-19 Vaccine (2 - Pfizer 2-dose series) [facility] Start: 10-16-2020 End: 10-16-2020 Infusion/Injection [facility] Start: 04-17-2020 End: 04-17-2020 Office Visit 04/17/2020 Office Visit Neurology Willard Epperson MD [address] [address] [phone] [facility] Start: 04-17-2020 End: 04-17-2020 Infusion/Injection [facility] Start: 02-04-2020 Influenza vaccination given [facility] Start: 01-22-2020 Mammography MAMMOGRAM [facility] Start: 01-15-2020 Adult depression screening assessment DEPRESSION SCREENING [facility] Start: 10-18-2019 End: 10-18-2019 Office Visit 10/18/2019 Office Visit Neurology Willard Epperson MD [address] [address] [phone] [facility] Start: 10-18-2019 End: 10-18-2019 Infusion/Injection [facility] Start: 10-18-2019 End: 10-18-2019 Appointment 10/18/2019 Appointment Radiology Willard Epperson MD [address] [address] [phone] [facility] Start: 04-12-2019 End: 04-12-2019 Infusion/Injection 04/12/2019 Infusion/Injection Infusion Therapy [facility] Start: 03-11-2019 End: 03-11-2019 Office Visit 03/11/2019 Office Visit Neurology Willard Epperson MD [address] [facility] [address] [address] [phone] [facility] Start: 02-04-2019 DIABETES SCREEN DIABETES SCREEN [facility] Start: 02-03-2019 Influenza vaccination given [facility] Start: 10-12-2018 End: 10-12-2018 Infusion/Injection 10/12/2018 Infusion/Injection Infusion Therapy Willard Epperson MD [address] [facility] [address] [address] [phone] [facility] Start: 04-13-2018 End: 04-13-2018 Ambulatory 04/13/2018 Office Visit Neurology Willard Epperson MD [address] [address] [phone] [facility] Start: 04-13-2018 End: 04-13-2018 Ambulatory 04/13/2018 Infusion/Injection Infusion Therapy [facility] Start: 02-03-[address] [facility] Start: 02-03-2018 Influenza vaccination given SEQUENTIAL INFLUENZA VACCINE (#1) [facility] Start: 01-19-2018 End: 01-19-2018 Ambulatory 01/19/2018 Office Visit Neurology Willard Epperson MD [address] [facility] [address] [address] [phone] [facility] Start: 10-11-2017 Ambulatory 10/11/2017 Infusion/Injection Infusion Therapy [facility] Start: 08-25-2017 Ambulatory 08/25/2017 Office Visit Neurology Willard Epperson MD [address] [facility] [address] [address] [phone] [facility] Start: 08-17-2017 Ambulatory 08/17/2017 Appointment Radiology Willard Epperson MD [address] [facility] [address] [address] [phone] [facility] Start: 05-25-2017 Ambulatory 05/25/2017 Office Visit Neurology Willard Epperson MD [address] [facility] [address] [place] [address] [phone] [facility] Start: 05-04-2017 Ambulatory 05/04/2017 Infusion/Injection Infusion Therapy [facility] Start: 02-13-2017 Ambulatory 02/13/2017 Office Visit Neurology Willard Epperson MD [address] [facility] [address] [facility] [address] [place] [address] [phone] [facility] Start: 02-03-2017 Influenza vaccination SEQUENTIAL INFLUENZA VACCINE (#1) [facility] Work Phone: Start: 02-03-2017 SEQUENTIAL INFLUENZA VACCINE (#1) SEQUENTIAL INFLUENZA VACCINE (#1) [facility] Work Phone: Start: 03-31-2016 HPV TESTING HPV TESTING [facility] Start: 03-31-2016 PAP TESTING PAP TESTING [facility] Start: 02-09-2016 LIPID SCREEN LIPID SCREEN [facility] Start: 02-21-2008 Administration of herpes zoster vaccine Zoster Vaccines (1 of 2) [facility] Start: 02-21-2008 Screening for malignant neoplasm of colon [facility] Start: 02-21-2008 SHINGRIX VACCINE (1 of 2) SHINGRIX VACCINE (1 of 2) [facility] Start: 2003 COLOGUARD (FIT-DNA) COLOGUARD (FIT-DNA) [facility] Start: [address] COLONOGRAPHY [facility] Start: 2003 FECAL OCCULT BLOOD FECAL OCCULT BLOOD [facility] Start: 2003 SIGMOIDOSCOPY SIGMOIDOSCOPY [facility] Start: 02-21-1976 HEPATITIS C SCREENING HEPATITIS C SCREENING [facility] Start: 02-21-1976 HIV SCREENING HIV SCREENING [facility] Start: 1974 COVID-19 Vaccine (1 of 2) COVID-19 Vaccine (1 of 2) [facility] Start: 1974 COVID-19 Vaccine (1) COVID-19 Vaccine (1) [facility] Start: 1970 Adolescent depression screening assessment Depression Screening (PHQ9) [facility] Start: 1970 Depression screening using PHQ-9 (Patient Health Questionnaire 9) score [facility] Start: 1961 History and physical examination, annual for health maintenance Wellness Visit [facility] Start: 1958 Protein mass conc Mammogram [facility] Start: 1958 Screening for malignant neoplasm of colon [facility] Start: 1958 Screening mammography Mammogram [facility] Start: 1958 [address] [facility] Work Phone: Start: 1958 Cytopathology procedure, preparation of smear, genital source PAP SMEAR [facility] Work Phone: Start: 1958 End: 1958 Screening colonoscopy COLONOSCOPY [facility] Work Phone: Start: 1958 End: 1958 Screening for malignant neoplasm of cervix PAP SMEAR [facility] Start: 1958 TETANUS EVERY 10 YR TETANUS EVERY [address] [facility] Work Phone: Start: 1960 End: 1958 Tetanus vaccination TETANUS EVERY [address] [facility] Work Phone: End: 04-17-2021 Cobalamin (Vitamin B12) [Mass/Vol] Vitamin B12 Lab Routine Fatigue, unspecified type 1 Occurrences starting 04/17/2020 until 04/17/[address] [facility] Comment on above: 1 Occurrences starting 04/17/2020 until 04/17/2021 End: 04-17-2021 Complete blood count with white cell differential, manual CBC and Differential Lab Routine Multiple sclerosis, primary progressive (HCC) 1 Occurrences starting 04/17/2020 until 04/17/[address] [facility] Comment on above: 1 Occurrences starting 04/17/2020 until 04/17/2021 End: 10-02-2019 Complete blood count with white cell differential, manual CBC and Differential Routine Therapeutic drug monitoring 1 Occurrences starting 10/01/2018 until 10/02/[address] [facility] Comment on above: 1 Occurrences starting 10/01/2018 until 10/02/2019 End: 10-16-2021 Complete blood count with white cell differential, manual CBC and Differential Lab Routine Multiple sclerosis, primary progressive (HCC) 1 Occurrences starting 10/16/2020 until 10/16/[address] [facility] Comment on above: 1 Occurrences starting 10/16/2020 until 10/16/2021 End: 04-17-2021 Comprehensive metabolic 2000 panel Comprehensive Metabolic Panel Lab Routine Multiple sclerosis, primary progressive (HCC) 1 Occurrences starting 04/17/2020 until 04/17/[address] [facility] Comment on above: 1 Occurrences starting 04/17/2020 until 04/17/2021 End: 10-02-2019 Comprehensive metabolic 2000 panel Comprehensive Metabolic Panel Routine Therapeutic drug monitoring 1 Occurrences starting 10/01/2018 until 10/02/[address] [facility] Comment on above: 1 Occurrences starting 10/01/2018 until 10/02/2019 End: 05-25-2018 Comprehensive metabolic panel [AGGREGATE] Comprehensive Metabolic Panel Routine Multiple sclerosis (HCC) 1 Occurrences starting 05/25/2017 until 05/25/[address] [facility] Work Phone: Comprehensive metabo lic panel [AGGREGATE] Comprehensive Metabolic Panel Routine Multiple sclerosis (HCC) 05/25/2017 10:[address] [facility] Work Phone: End: 10-16-2021 Hepatic function 2000 panel - Serum or Plasma Hepatic Function Panel Lab Routine Multiple sclerosis, primary progressive (HCC) 1 Occurrences starting 10/16/2020 until 10/16/[address] [facility] Comment on above: 1 Occurrences starting 10/16/2020 until 10/16/2021 End: 04-17-2021 Immunoglobulin measurement IgG, IgA, IgM Immunoglobulins Lab Routine Multiple sclerosis, primary progressive (HCC) 1 Occurrences starting 04/17/2020 until 04/17/[address] [facility] Comment on above: 1 Occurrences starting 04/17/2020 until 04/17/2021 End: 10-16-2021 Immunoglobulin measurement IgG, IgA, IgM Immunoglobulins Lab Routine Multiple sclerosis, primary progressive (HCC) 1 Occurrences starting 10/16/2020 until 10/16/[address] [facility] Comment on above: 1 Occurrences starting 10/16/2020 until 10/16/2021 End: 09-28-2018 MR Brain With And Without Contrast MR Brain With And Without Contrast Routine Multiple sclerosis (HCC) Once for 1 Occurrences starting 09/28/2018 until 09/28/[address] [facility] Comment on above: Once for 1 Occurrences starting 09/29/19 19 until 09/28/2018 MR Brain With And Without Contrast MR Brain With And Without Contrast Routine Multiple sclerosis (HCC) 09/28/2018 1:[address] [facility] End: 08-25-2018 OCT, Optic Nerve - OU - Both Eyes OCT, Optic Nerve - OU - Both Eyes Routine Multiple sclerosis (HCC) 1 Occurrences starting 08/25/2017 until 08/25/[address] [facility] Patient referral [facility] Work Phone: End: 12-31-2022 Screening mammography bi 2-view breast inc cad HUBERT SCREENING Radiology Routine Encounter for screening mammogram for breast cancer 1 Occurrences starting 12/01/2021 until 12/31/2022 [facility] Work Phone: Comment on above: 1 Occurrences starting 12/01/2021 until 12/31/2022 End: 04-17-2021 TSH Qn TSH with Reflex Free T4 Lab Routine Fatigue, unspecified type 1 Occurrences starting 04/17/2020 until 04/17/[address] [facility] Comment on above: 1 Occurrences starting 04/17/2020 until 04/17/2021 Urine culture [facility] End: 04-17-2021 Vitamin D, 25-hydroxy measurement Vitamin D, Total, 25-OH Lab Routine Multiple sclerosis, primary progressive (HCC) 1 Occurrences starting 04/17/2020 until 04/17/[address] [facility] Comment on above: 1 Occurrences starting 04/17/2020 until 04/17/2021 End: 10-01-2019 Vitamin D, 25-hydroxy measurement Vitamin D, Total, 25-OH Routine Therapeutic drug monitoring 1 Occurrences starting 10/01/2018 until 10/01/[address] [facility] Comment on above: 1 Occurrences starting 10/01/2018 until 10/01/2019 End: 05-25-2018 Vitamin D, Total, 25-OH Vitamin D, Total, 25-OH Routine Multiple sclerosis (HCC) 1 Occurrences starting 05/25/2017 until 05/25/[address] [facility] Work Phone: Vitamin D, Total, 25-OH Vitamin D, Total, 25-OH Routine Multiple sclerosis (HCC) 05/25/2017 10:[address] [facility] Work Phone: Immunizations Immunization Date Immunization Notes Care Provider Iva harris 10-21-2020 COVID-19 vaccine, ag e 12+ yr (PFIZER-BIONTECH - PURPLE TOP) Joan Hughes MD Work Phone: [facility] Work Phone: 09-28-2020 COVID-19 vaccine, ag e 12+ yr (PFIZER-BIONTECH - PURPLE TOP) Joan Hughes MD Work Phone: [facility] Work Phone: 02-09-2017 AFLURIA QUAD 2016- 18, PF, syringe; Translations: [Afluria Quad (Pf) 60 McG/0.5 Ml Intramuscular Syringe] Jeanne Hilario [facility] Work Phone: 02-08-2016 influenza, seasonal, injectable Joan Hughes MD Work Phone: [facility] 02-22-2013 influenza virus vaccine, unspecified formulation Joan Hughes MD Work Phone: [facility] 03-03-2012 influenza virus vaccine, unspecified formulation Joan Hughes MD Work Phone: [facility] 02-09-2012 tetanus toxoid, redu deniz diphtheria toxoid, and acellular pertussis vaccine, adsorbed Joan Hughes MD Work Phone: [facility] 04-07-2010 pneumococcal polysaccharide vaccine, 23 valent Joan Hughes MD Work Phone: [facility] 03-25-2008 influenza virus vaccine, unspecified formulation Joan Hughes MD Work Phone: [facility] 04-03-2007 influenza virus vaccine, unspecified formulation Joan Hughes MD Work Phone: [facility] Work Phone: 04-17-2006 influenza virus vaccine, unspecified formulation Joan Hughes MD Work Phone: [facility] 05-17-2005 influenza virus vaccine, unspecified formulation Joan Hughes MD Work Phone: [facility] Work Phone: Payers Date Payer Category Payer Self-pay [id number] Unknown [id number] 2013 Unknown [id number] 2. [id number] 2013 Unknown [id number] 2. 16.840.1.308060.3.249.13 2013 Unknown [id number] 1.2.840.379992.1.13.385.2.7.3.839182.315 2013 Unknown [id number]. 1.13.385.2.7.3.033420.315 1958 Unknown [id number] 2.16. 840.1.529003.3.579.2.900 1958 Unknown [id number] 2.16. 840.1.791304.3.579.2.900 1958 Unknown [id number] 2.16. 840.1.351089.3.579.2.900 1958 Unknown [id number] 2.16. 840.1.831629.3.579.2.900 1958 Unknown [id number] 2.16. 840.1.508313.3.579.2.900 1958 Unknown [id number] 2.16. 840.1.475591.3.579.2.900 1958 Unknown [id number] 2.16. 840.1.325757.3.579.2.900 1958 Unknown [id number] 2.16. 840.1.826517.3.579.2.900 1958 Unknown [id number] 2.16. 840.1.738549.3.579.2.900 1958 Unknown [id number] 2.16. 840.1.360165.3.579.2.903 1958 Unknown [id number] 2.16. 840.1.491331.3.579.2.903 Medicare MEDICARE PART A B [id number] Unknown [id number] 2.16.8 40.1.565215.3.579.2.462 Unknown [id number] 2.16.8 40.1.518327.3.579.2.462 Unknown [id number] 2.16.8 40.1.269172.3.579.2.462 Unknown [id number] 2.16.8 40.1.033260.3.579.2.462 Unknown [id number] 2.16.8 40.1.229304.3.579.2.462 Unknown [id number] 2.16.8 40.1.805372.3.579.2.462 Unknown [id number] 2.16.8 40.1.904032.3.579.2.462 Unknown [id number] 2.16.8 40.1.527671.3.579.2.462 Unknown [id number] 2.16.8 40.1.307976.3.579.2.462 Unknown [id number] 2.16.8 40.1.745941.3.579.2.462 Unknown [id number] 2.16.8 40.1.158600.3.579.2.462 Unknown [id number] 2.16.8 40.1.810662.3.579.2.462 Unknown [id number] 2.16.8 40.1.067169.3.579.2.462 Unknown [id number] 2.16.8 40.1.826733.3.579.2.462 Unknown [id number] 2.16.8 40.1.893242.3.579.2.462 Unknown [id number] 2.16.8 40.1.517839.3.579.2.462 Unknown [id number] 2.16.8 40.1.747471.3.579.2.462 Unknown [id number] 2.16.8 40.1.485095.3.579.2.462 Unknown [id number] 2.16.8 40.1.615410.3.579.2.462 Unknown [id number] 2.16.8 40.1.788494.3.579.2.462 Unknown [id number] 2.16.8 40.1.498097.3.579.2.462 Unknown [id number] 2.16.8 40.1.874036.3.579.2.462 Unknown [id number] 2.16.8 40.1.259644.3.579.2.462 Unknown [id number] 2.16.8 40.1.222502.3.579.2.462 Unknown [id number] 2.16.8 40.1.366554.3.579.2.462 Unknown [id number] 2.16.8 40.1.845396.3.579.2.462 Unknown [id number] 2.16.8 40.1.486318.3.579.2.462 Unknown [id number] 2.16.8 40.1.037296.3.579.2.462 Unknown [id number] 2.16.8 40.1.171203.3.579.2.462 Unknown [id number] 2.16.8 40.1.977591.3.579.2.462 Unknown [id number] 2.16.8 40.1.841801.3.579.2.462 Unknown [id number] 2.16.8 40.1.132341.3.579.2.462 Unknown [id number] 2.16.8 40.1.722070.3.579.2.462 Unknown [id number] 2.16.8 40.1.755805.3.579.2.462 Unknown [id number] 2.16.8 40.1.760565.3.579.2.462 Unknown [id number] 2.16.8 40.1.045888.3.579.2.462 Unknown [id number] 2.16.8 40.1.919446.3.579.2.462 Unknown [id number] 2.16.8 40.1.216362.3.579.2.462 Unknown [id number] 2.16.8 40.1.748393.3.579.2.462 Unknown [id number] 2.16.8 40.1.254927.3.579.2.462 Social History Date Type Detail Facility Start: 10-11-2017 End: 07-05-2022 Tobacco smoking status NHIS Never smoker [facility] Work Phone: Start: 1960 Sex Assigned At Not on file [facility] Work Phone: Start: 04-16-2019 End: 07-14-2021 Alcohol intake Current non-drinker of alcohol (finding) [facility] Exposure to SARS-CoV -2 (event) Not sure [facility] Start: 04-13-2017 End: 10-18-2019 Tobacco use and exposure Never used [facility] Start: 09-16-2021 End: 07-05-2022 Tobacco smoking status NHIS Unknown if ever smoked [facility] Start: 01-25-2020 Alone [facility] Start: 1960 Sex Assigned At Female [facility] Start: 09-05-2024 End: 09-06-2024 Sex Female (finding) [facility] Goals Date Patient Goal Desired Activity /State Functional Status Date Assessment Result Facility 09-28-2021 Functional status Patient Activity Chair [facility] Work Phone: 09-28-2021 Functional status Activity Abili ty With Assist of 2 [facility] Work Phone: 09-28-2021 Functional status Rolling Walker [facility] Work Phone: Mental Status Date Assessment Result Facility 09-28-2021 Cognitive function Voice/Name [facility] Work Phone: 09-16-2021 Cognitive function Level Of Cons ciousness Awake;Alert;Appropriate;Follow s Commands [facility] Work Phone: Clinical Notes 10-16-2020 to 11-09-2022 Willard Epperson MD - 06/23/2022 11:31 AM ESTPatient InstructionsPatient InstructionsWillard Epperson MD - 04/09/2021 8:00 AM EDTSmithWillard MD - 10/29/2020 10:03 AM EDT Note Date & Type Note Facility 11-09-2022 Note Patient Outreach (IN TMMN) BRITNEY PERAAZ ([id number]) 1960 F TXT Date Time Provider Department [...] for screening mammogram for breast cancer [Z12.31] Order(s):[facility] SCREENING [[id number]] Order #: [id number] FUTURE Prescriptions as of 11/14/2022 - atenolol [...] sclerosis) (HCC) [G35] 01/14/2019 Encounter Status:Closed by SUPENTACHRIS on 11/14/22 [facility] 06-23-2022 History of Present illness Narrative Left voicemail message with patient. Was not sure if she wanted to continue to follow-up in clinic. Would be happy to see her back, even if she is no longer on disease modifying therapy to work on symptomatic management. Provided with the number for the hotel front desk clerk if she is interested in rescheduling. documented in this encounter [facility] 12-01-2021 Note Patient Outreach (IN TMMN) BRITNEY PERAZA ([id number]) 1960 F TXT Date Time Provider Department [...] for screening mammogram for breast cancer [Z12.31] Order(s):[facility] SCREENING [[id number]] Order #: [id number] FUTURE Prescriptions as of 12/06/2021 - atenolol [...] Encounter Status:Closed by KODAK, PRODUSER on 12/06/21 [facility] 04-09-2021 Instructions Zahra Pratt RN - [...] the medicines you take, including prescription and gvog-yak-aoznrkt medicines. vitamins, and herbal supplements. How will [...] may report side effects to FDA at [phone]. General information about the safe and effective [...] sodium acetate trihydrate, trehalose dihydrate. Manufactured by: [employer] A Member of the [employer], [address] [place] [address], [place] [address] [place]. License No. [id number] For more information, go to www.Ge.tt or call . This Medication Guide has been approved by the U.S. Food and Drug Administration documented in this encounter [facility] 04-09-2021 Instructions Willard Epperson MD - 04/09/2021 8:16 AM EDT Central Schedulin064- [phone] documented in this encounter [facility] 04-09-2021 History of Present illness Narrative Images from the original note were not included. 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 I recommend continuing Vitamin D3 67192 IU once every other daily. Goal levels [...] me in 6 months. Willard Epperson MD [facility] Neurological Physicians Neuroimmunology/ Neuroinfectious Disease ([facility], and [place] [facility]) General Neurology ([facility]) ([place]) [place] Address: [address] [place] [address], [address] [place] [address] [place] Address [address] [facility], [address] [place] [address] [facility] [address] [place] [address], [place] [address] Chief Complaint: Neuro-immunology clinic follow up INTERIM HISTORY Britney Peraza is here for follow up. Last was seen 10/23. Accompanied by her sister today. She has her infusion scheduled later this morning. No new symptoms to report, though her sister feels she minimizes worsening gait impairment. We had placed orders for [facility] in [facility]. They had been providing her with a [...] Swelling Naproxen Sodium Hives, Itching and Swelling Swhxcagsvtnp-Asu-Xkjwftbf tachycardia tachycardia Penicillins Hives Sulfa (Sulfonamide Antibiotics) Hives Tetracycline Hives Current Outpatient Medications Medication Sig Dispense Refill acetaminophen (TYLENOL) 500 MG tablet Take 500 mg by mouth every 6 (six) hours as needed for pain. AFLURIA QUAD [id number], PF, syringe ADMINISTERED AT DDM 0 atenolol [...] documentation: 40 minutes. documented in this encounter [facility] 01-08-2021 Miscellaneous Notes Changed pharmacies documented in this encounter [facility] 10-29-2020 History of Present illness Narrative Are we able to fax this order for home health to [facility] in [place]? Contact is: Toll Free [phone] Also, can we reschedule her Apr visit [...] her regarding this? documented in this encounter [facility] 10-16-2020 History of Present illness Narrative Images from the original note were not included. 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 Goal levels of Vitamin [...] with me April 2021. Willard Epperson MD [facility] Neurological Physicians Neuroimmunology/ Neuroinfectious Disease ([facility], [facility], and [place] [facility]) General Neurology ([facility]) ([facility]) [facility] Address: [address] [place] [address], [address] [place] [address] [place] Address [address], [address] [place] [address] [facility] [address] [place] [address], [place] [address] Chief Complaint: Neuro-immunology clinic follow up INTERIM [...] Swelling Naproxen Sodium Hives, Itching and Swelling Jxxnpmgrklcj-Hsa-Qizxbkni tachycardia tachycardia Penicillins Hives Sulfa (Sulfonamide Antibiotics) Hives Tetracycline Hives Current Outpatient Medications Medication Sig Dispense Refill acetaminophen (TYLENOL) 500 MG tablet Take 500 mg by mouth every 6 (six) hours as needed for pain. AFLURIA QUAD [id number], PF, syringe ADMINISTERED AT DDM 0 atenolol [...] of T2/FLAIR signal abnormalities compatible with demyelination. [employer] Workstation ID: [id number] Results for orders placed [...] air cells are clear. Nasopharynx is normal. Building Rental Manager spaces are normal. Orbital contents are [...] or enhancing lesions. 3. Stable brain atrophy. [facility] Workstation ID: [id number] Total time spent, including over 50% or more spent face to face with the patient discussing the risk and benefits of any medications, reviewing available data and counseling patient on treatment plan was 30 minutes. The aforementioned impression & plan were discussed with the patient. documented in this encounter [facility] 10-16-2020 Instructions LiangLata RN - 10/16/2020 [...] Pt voiced understanding. documented in this encounter [facility] 10-16-2020 Instructions Lata Liang RN - [...] Pt voiced understanding. documented in this encounter [facility] 10-16-2020 History of Present illness Narrative Labs obtained with insertion of PIV, which will be used for the infusion today. Specimens labeled per policy and taken to the lab in the page hospital for processing. documented in this encounter [facility] 10-16-2020 History of Present illness Narrative Labs obtained with insertion of PIV, which will be used for the infusion today. Specimens labeled per policy and taken to the lab in the page hospital for processing. documented in this encounter [facility] Evaluation note Diagnosis Multiple sclerosis, primary progressive (HCC)- [facility] primary progressive (HCC)- Primary [facility] Multiple [facility], primary progressive (HCC)- Primary Vitamin D deficiency Paresis of lower extremity (HCC) Unspecified paralysis History of gait disorder [facility] Diagnosis Multiple sclerosis, primary progressive (HCC)- Primary documented in [facility] note* Diagnosis Vitamin D deficiency documented in this encounter [facility] note* Diagnosis Multiple sclerosis, primary progressive (HCC)- Primary Multiple sclerosis (HCC) Multiple sclerosis documented in this encounter [facility] note* Diagnosis Multiple sclerosis, primary progressive (HCC)- Primary Vitamin D deficiency Spasticity Abnormal involuntary movements Ataxia Lack of coordination Cognitive impairment Unspecified persistent mental disorders due to conditions classified elsewhere documented in this encounter [facility] note* Diagnosis Onset Date Resolution Status Acute cystitis acute Complicated urinary tract infection acute Infectious encephalopathy ac isha Severe sepsis acute [facility] Work Phone: Evaluation note* Diagnosis Onset Date Resolution Status Acute respiratory failure with hypoxia acute Complicated urinary tract infection acute COVID-19 acute Debility acute Lactic acidosis acute Sepsis acute [facility] Work Phone: Evaluation note* Diagnosis Onset Date Resolution Status Debility acute Acute respiratory failure with hypoxia resolved Complicated urinary tract infection resolved COVID-19 resolved Lactic acidosis resolved Sepsis resolved [facility] Work Phone: Evaluation note* Diagnosis Encounter for screening mammogram for breast cancer documented in this encounter [facility] noteNo assessment information availableWOhio[facility] Work Phone: Evaluation note* Diagnosis Multiple sclerosis, primary progressive (HCC)- Primary [facility] Work Phone[facility] Phone: [facility] Discharge instructionsWOhio[facility] Work Phone: [facility] Work Phone: Reason for referral (narrative)* Diagnostic Procedure Only (Routine) - Pending Review Specialty Diagnoses / Procedures Referred By Gaston t Referred To Contact [facility] Diagnoses Encounter for screening mammogram for breast cancer Procedures HUBERT SCREENING SCREENING MAMMOGRAPHY BI 2-VIEW BREAST INC Joan Palomino MD [address] [place] [address] [facility] [place] [address] Referral ID Status Reason Start Date Expiration Date Visits Requested Visits Authorized [id number] Pending Review Auto-Generat ed Referral 12/01/2021 12/31/2022 1 1 [facility] for referral (narrative)No reason for referral information availableWOhioHealth [facility] Work Phone: Instructions * Patient Instructions [...] would require purchasing a compounded version from [employer]. One source to purchase this is https://TaskEasy/product/7-piqxen-ddqh-jesbeiq-zuzfgn-sst-90-count/ Physical Therapy: 1. Recommend return to PT [...] the medicines you take, including prescription and ntvk-fud-jujaooz medicines, vitamins_._and herbal supplements. _ _ _ [...] may report side effects to FDA at 1-148-FCO-2391. General Information about the safe and effective [...] sodium acetate trihydrate, trehalose dihydrate. Manufactured by: [employer] A Member of the [employer], [address] [place] [address], [place] [address] [place]. License No.[id number] For more lnformation, go to www.[email or web address].AMX or_call 5-067-076-38BZ. This Medication Guide has been approved by [...] Anxiety Anxiety state, unspecified Diagnosis Multiple sclerosis ([facility]) - P rimary Multiple sclerosis Diagnosis Multiple [...] With And Without Contrast Willard Epperson MD [address] [place] [address] Status Reason Specialty Diagnoses / Procedures Referred By Contact Referred To Contact Authorized Specialty Services Required/Patien t's Best Interest Physical Therapy Diagnoses Multiple sclerosis ([facility]) Willard Epperson MD [address] [place] [address] Status Reason Specialty Diagnoses / Procedures Referre d By Contact Referred To Contact Closed Radiology Diagnoses Multiple sclerosis ([facility]) Procedures MR Brain Without Contrast Willard Epperson MD [address] [place] [address] Status Reason Specialty Diagnoses / Procedures Referred By Contact Referred To Contact Closed Specialty Services Required/Patien t's Best Interest Sample Grader Diagnoses Multiple sclerosis (HCC) Willard Epperson MD [address] [place] [address] Dory Velez LISW-S Status Reason Specialty Diagnoses / Procedures Referred By Contact Referred To Contact New Request Radiology Diagnoses Multiple sclerosis, primary progressive (HCC) Procedures MR Thoracic Spine With And Without Contrast Willard Epperson MD [address] [place] [address] [address] [place] [address] Status Reason Specialty Diagnoses / Procedures Referred By Contact Referred To Contact New Request Radiology Diagnoses Multiple sclerosis, primary progressive (HCC) Procedures MR Cervical Spine With And Without Contrast Willard Epperson MD [address] [place] [address] [address] [place] [address] Status Reason Specialty Diagnoses / Procedures Referred By Contact Referred To Contact New Request Radiology Diagnoses Multiple sclerosis, primary progressive (HCC) Procedures MR Brain With And Without Contrast Willard Epperson MD [address] [place] [address] [place] [address] Status Reason Specialty Diagnoses / Procedures Referred By Contact Referred To Contact Authorized Specialty Services Required/Patie nt's Best Interest Home Health Services Diagnoses Multiple sclerosis, primary progressive (HCC) Willard Epperson MD [address] [place] [address] [address] [place] [address] Specialty Diagnoses / Procedures Referred By Contac t Referred To Contact Sample Grader Diagnoses Multiple sclerosis, primary progressive (HCC) Willard Epperson MD [address] [place] [address] [place] [address] Dory Velez LISW-S Referral ID Status Reason Start Date Expiration Date V isits Requested Visits Authorized [id number] Closed Specialty Services Required/[place] ent's Best Interest 04/09/2021 04/09/2022 1 1 Advance Directives No Advanced Directives Records FoundDocuments on File Type Date Recorded Patient Marketing Technologist Expl anation Advance Directives and Livin g Will 04/12/2019 8:19 AM Documents on File Type Date Recorded Patient Marketing Technologist Expl anation Advance Directives and Livin g Will 04/12/2019 8:19 AM Documents on File Type Date Recorded Patient Marketing Technologist Expl anation Advance Directives and Livin g Will 10/18/2019 6:47 AM Documents on File Type Date Recorded Patient Marketing Technologist Expl anation Advance Directives and Livin g Will 10/18/2019 6:47 AM Documents on File Type Date Recorded Patient Marketing Technologist Expl anation Advance Directives and Livin g Will 04/17/2020 6:47 AM Documents on File Type Date Recorded Patient Marketing Technologist Expl anation Advance Directives and Livin g Will 04/17/2020 6:47 AM Documents on File Type Date Recorded Patient Marketing Technologist Expl anation Advance Directives and Livin g Will 10/16/2020 6:47 AM Documents on File Type Date Recorded Patient Marketing Technologist Expl anation Advance Directives and Livin g Will 10/16/2020 6:47 AM Documents on File Type Date Recorded Patient Marketing Technologist Expl anation Advance Directives and Livin g Will 04/09/2021 6:47 AM Documents on File Type Date Recorded Patient Marketing Technologist Expl anation Advance Directives and Livin g Will 04/09/2021 6:47 AM Advance Directive Response Recorded Date/ Time Living Will Yes September 16, 2021 2:30pm Power of Recreation Worker Yes September 16 2:30pm Advance Directive Response Recorded Date/ Time Name of Medical Power of Recreation Worker jacque schwartz September 16, 2021 2:30pm Living Will Yes September 16, 2021 2:30pm Power of Recreation Worker Yes September 16 2:30pm Advance Directive Response Recorded Date/ Time Living Will Yes September 16, 2021 1:30pm Power of Recreation Worker Yes September 16 1:30pm Advance Directive Response Recorded Date/ Time Living Will Yes July 05 11:24am Power of Recreation Worker Yes July 05, 2022 11:24am Advance Directive Response Recorded Date/ Time Living Will Yes July 05 12:24pm Power of Recreation Worker Yes July 05, 2022 12:24pm History of Present Illness * Jeanne Hilario CMA - 02/13/2017 1:04 PM EDT [facility][phone] physical therapy order along with face [...] Epperson MD - 04/16/2019 8:[address] [facility] [...] trials and in our experience here at [facility], most infusion related reactions are mild [...] visit. 3. Please sign up for the [employer] patient portal. [employer] provides assess to your medical record and test results, allows you to communicate with your care providers, and allows you to complete patient questionnaires prior to each clinic visit. 4. When your testing is completed, your MS care team will review all results and contact you if a finding requires follow up before your next visit. Otherwisee, we will discuss your test results isqy-su-pclc at your next clinic visit. Many of your testing results, however, can be reviewed online through [employer]. MS Disease Summary Primary Neurological Diagnosis and [...] hours as needed for pain. AFLURIA QUAD [id number], PF, syringe ADMINISTERED AT DDM 0 atenolol [...] Swelling Naproxen Sodium Hives, Itching and Swelling Ckayothzwwxx-Tug-Cizjcxkd tachycardia tachycardia Penicillins Hives Sulfa (Sulfonamide Antibiotics) [...] file Gets together: Not on file Attends mormon service: Not on file Active member of [...] of links to MS educational sources online: [facility] (www.[facility].com/MS) Multiple Sclerosis Association of [place] (www.mymsaa.org) Multiple Sclerosis Foundation (www.msfocus.org) Can do Multiple Sclerosis ( www.mscando.org ) National Multiple Sclerosis Society (www.nationalmssociety.org) Twitter: @[facility] Facebook: [facility] Instagram: [facility] 5. For information on the [facility]'s clinical trial program contact Sari Bolden [facility]. 6. MS Groups take place at [facility] Education and Resource [place] at [facility]: [address] [place] [address]. Parking vouchers will be provided. Life with [...] the Monday of the month from 5:30-7pm. Caregiver/Food Service Attendant Support Group: offers opportunities to connect with [...] experienced yoga practitioners. Pre- registration is required: [phone] 7. Education regarding disease modifying therapy discussed [...] Willard Epperson MD Neuroimmunology and Neuroinfectious Disease [facility] at [facility] and [place] [facility] ([facility]io fax) [facility] Address: [address] [place] [address], [address] [place], [place] [address] [place] [address] [place] [address], [address] [place] [address] documented in this encounter* Jeanne Hilario CMA - 04/18/2019 8:25 AM EST Faxed [facility] ([phone]) a physical therapy referral along with face sheet and Insurance card to call patient to schedule. documented in this encounter* Willard Epperson MD - 10/18/2019 10:43 AM EDT Telephone Visit Via Phone Call [facility] [address] [facility], NEUROSCIENCE [address] [facility] [phone] [facility] 10/18/2019 Willard Epperson MD Provider Location: [facility] Patient Location Transit Coach Operator: None Patient Location: Patient's Home Patient: Britney [...] there are inherent diagnostic limitations compared to yokv-gh-fwyz evaluations. We elected toproceed with the telephone visit telemedicine consultation. HPI Today she is currently at the [facility] receiving her infusion. She has been [...] hours as needed for pain. AFLURIA QUAD [id number], PF, SYRINGE ADMINISTERED AT [facility] ATENOLOL (TENORMIN) 25 MG TABLET [...] Continue with vitamin D 5000 units daily swqi-cuv-lenylno Continue Ampyra 10 mg twice daily and [...] EDT Faxed new Physical Therapy order to [facility] ([phone]) to call and schedule in home visits [...] her biggest problem. Patient lives alone in [place], [place] and sister lives in [place]. Falls in past 6 months: > 6, [...] the need for help. Pt has a [employer] dical alert system. She is receiving 2 hours of aide support, 2 times per week. Her bathroom was remodeled with a walk-in shower and a chair lift was installed to get pt safely from her garage into the home. It appears that pt would benefit from meals on wheels, as her aide is only allowed to picking supervisor groceries, so pt does not have easy access to food/shopping. Jacque lives in [place]. In reviewing past and present in-home supports, [...] Name: Britney Peraza : 1960 MR [facility]: [id number] [id number] Other Physicians: Joan Hughes MD (Primary Care Physician) [facility] Follow-up Visit 04/17/2020 [...] me in 3 months. Willard Epperson MD 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 Confirms about 12 calls with [employer] over the last year. Would benefit significantly [...] Swelling Naproxen Sodium Hives, Itching and Swelling Mdpgitxpnmon-Jfj-Ulwxjxke tachycardia tachycardia Penicillins Hives Sulfa (Sulfonamide Antibiotics) Hives Tetracycline Hives Current Outpatient Medications Medication Sig Dispense Refill acetaminophen (TYLENOL) 500 MG tablet Take 500 mg by mouth every 6 (six) hours as needed for pain. AFLURIA QUAD [id number], PF, syringe ADMINISTERED AT DDM 0 atenolol [...] EST Faxed a physical therapy order to [facility] ([phone]) along with face sheet and Insurance card to call and schedule with patient. documented in this encounter* Willard Epperson MD - 09/28/2018 3:[address] [facility] Sclerosis Center at [facility] Follow Up Note 09/28/2018 IMPRESSIONS Britney [...] her MS providers. 3. Given that Britney Peraaz is on the Ocrevus, we will order the following safety laboratories/tests: new CBC/diff, CMP and vit D (can be drawn with her upcoming infusion). 4. Infusion Reactions can occur during Ocrevus infusions- In the clinical trials and in our experience here at [facility], most infusion related reactions are mild [...] visit. 3. Please sign up for the [employer] patient portal. [employer] provides assess to your medical record and test results, allows you to communicate with your care providers, and allows you to complete patient questionnaires prior to each clinic visit. 4. When your testing is completed, your MS care team will review all results and contact you if a finding requires follow up before your next visit. Otherwisee, we will discuss your test results dfob-yo-ecoz at your next clinic visit. Many of your testing results, however, can be reviewed online through [employer]. DISEASE SUMMARY Primary Neurological Diagnosis and Date [...] is also noticeable by her sister and ueunbwk-ws-wjl with regards toambulation. There have been no [...] hours as needed for pain. AFLURIA QUAD [id number], PF, syringe ADMINISTERED AT DDM 0 atenolol [...] Swelling Naproxen Sodium Hives, Itching and Swelling Crxwxvrqskwb-Wsg-Cvgdelah tachycardia tachycardia Penicillins Hives Sulfa (Sulfonamide Antibiotics) [...] Willard Epperson MD Neuroimmunology and Neuroinfectious Disease [facility] at [facility] and [place] [facility] ([facility]avio fax) [facility] Address: [address] [place] [address], [address] [place] [address] [place] Address [address] [facility] [address], [address] [place] [address] documented in this encounter Summary Purpose Family [...] WITH SEPSIS UTI WITH SEPSIS ADMISSION EXAM INTERMEDIATE LABWORK LABWORK Reason for Visit Debility Acute [...] WITH SEPSIS UTI WITH SEPSIS ADMISSION EXAM INTERMEDIATE LABWORK LABWORK LABWORK LAB WORK NEW SYMPTOMS/CONCERN [...] WITH SEPSIS UTI WITH SEPSIS ADMISSION EXAM INTERMEDIATE LABWORK LABWORK LABWORK LAB WORK NEW SYMPTOMS/CONCERN ALTERED MENTAL STATUS INTERMEDIATE LABWORK NEW SYMPTOMS/CONCERNS Reason for Visit Debility Acute respiratory failure with hypoxia Complicated urinary tract infection COVID-19 Lactic acidosis Sepsis Chief Complaint ADMISSION EXAM INTERMEDIATE LABWORK LABWORK LABWORK LAB WORK NEW SYMPTOMS/CONCERN ALTERED MENTAL STATUS INTERMEDIATE LABWORK NEW SYMPTOMS/CONCERNS INTERMEDIATE LABWORK INTERMEDIATE LAB WORK INTERMEDIATE LAB WORK Chief Complaint LABWORK LABWORK LAB WORK NEW SYMPTOMS/CONCERN ALTERED MENTAL STATUS INTERMEDIATE LABWORK NEW SYMPTOMS/CONCERNS INTERMEDIATE LABWORK INTERMEDIATE LAB WORK INTERMEDIATE LAB WORK INTERMEDIATE LABWORK Chief Complaint NEW SYMPTOMS/CONCERN ALTERED MENTAL STATUS INTERMEDIATE LABWORK NEW SYMPTOMS/CONCERNS INTERMEDIATE LABWORK INTERMEDIATE LAB WORK INTERMEDIATE LAB WORK INTERMEDIATE LABWORK LABWORK MONTHLY EXAM Chief Complaint NEW SYMPTOMS/CONCERN S INTERMEDIATE LABWORK INTERMEDIATE LAB WORK INTERMEDIATE LAB WORK INTERMEDIATE LABWORK LABWORK MONTHLY EXAM INTERMEDIATE LABWORK Chief Complaint INTERMEDIATE LABWORK INTERMEDIATE LAB WORK INTERMEDIATE LAB WORK INTERMEDIATE LABWORK LABWORK MONTHLY EXAM LABWORK INTERMEDIATE LABWORK Chief Complaint INTERMEDIATE LAB WOR K INTERMEDIATE LAB WORK INTERMEDIATE LABWORK LABWORK MONTHLY EXAM LABWORK INTERMEDIATE LABWORK INTERMEDIATE LABWORK ACUTE CARE NOTE Chief Complaint INTERMEDIATE LAB WOR K INTERMEDIATE LAB WORK INTERMEDIATE LABWORK LABWORK MONTHLY EXAM LABWORK INTERMEDIATE LABWORK INTERMEDIATE LABWORK INTERMEDIATE LABWORK ACUTE CARE NOTE ACUTE CARE Chief Complaint MONTHLY EXAM LABWORK INTERMEDIATE LABWORK INTERMEDIATE LABWORK INTERMEDIATE LABWORK ACUTE CARE NOTE ACUTE CARE INTERMEDIATE LABWORK INTERMEDIATE LAB WORK INTERMEDIATE LAB WORK INTERMEDIATE LAB WORK ACUTE CARE Chief Complaint LABWORK INTERMEDIATE LABWORK INTERMEDIATE LABWORK INTERMEDIATE LABWORK ACUTE CARE NOTE ACUTE CARE INTERMEDIATE LABWORK INTERMEDIATE LAB WORK INTERMEDIATE LAB WORK INTERMEDIATE LAB WORK INTERMEDIATE LAB WORK ACUTE CARE Chief Complaint LABWORK INTERMEDIATE LABWORK INTERMEDIATE LABWORK INTERMEDIATE LABWORK ACUTE CARE NOTE ACUTE CARE INTERMEDIATE LABWORK INTERMEDIATE LAB WORK INTERMEDIATE LAB WORK INTERMEDIATE LABWORK INTERMEDIATE LABWORK INTERMEDIATE LAB WORK INTERMEDIATE LAB WORK ACUTE CARE Chief Complaint INTERMEDIATE LABWORK INTERMEDIATE LABWORK ACUTE CARE NOTE ACUTE CARE INTERMEDIATE LABWORK INTERMEDIATE LAB WORK INTERMEDIATE LAB WORK INTERMEDIATE LABWORK INTERMEDIATE LABWORK INTERMEDIATE LAB WORK INTERMEDIATE LAB WORK ACUTE CARE INTERMEDIATE LABWORK MONTHLY NOTE INTERMEDIATE LABWORK ACUTE CARE Chief Complaint INTERMEDIATE LABWORK ACUTE CARE NOTE ACUTE CARE INTERMEDIATE LABWORK INTERMEDIATE LAB WORK INTERMEDIATE LAB WORK INTERMEDIATE LABWORK INTERMEDIATE LABWORK INTERMEDIATE LAB WORK INTERMEDIATE LAB WORK ACUTE CARE INTERMEDIATE LABWORK MONTHLY NOTE INTERMEDIATE LABWORK ACUTE CARE INTERMEDIATE LABWORK MONTHLY EXAM Chief Complaint INTERMEDIATE LAB WOR K INTERMEDIATE LABWORK INTERMEDIATE LABWORK INTERMEDIATE LAB WORK INTERMEDIATE LAB WORK ACUTE CARE INTERMEDIATE LABWORK MONTHLY NOTE INTERMEDIATE LABWORK ACUTE CARE INTERMEDIATE LABWORK MONTHLY EXAM INTERMEDIATE LAB WORK INTERMEDIATE LABWORK INTERMEDIATE LABWORK NEW CONCERN Chief Complaint INTERMEDIATE LAB WOR K INTERMEDIATE LABWORK INTERMEDIATE LABWORK INTERMEDIATE LAB WORK INTERMEDIATE LAB WORK ACUTE CARE INTERMEDIATE LABWORK MONTHLY NOTE INTERMEDIATE LABWORK ACUTE CARE INTERMEDIATE LABWORK MONTHLY EXAM INTERMEDIATE LAB WORK INTERMEDIATE LABWORK INTERMEDIATE LABWORK INTERMEDIATE LABWORK NEW CONCERN Chief Complaint INTERMEDIATE LABWORK INTERMEDIATE LABWORK INTERMEDIATE LAB WORK INTERMEDIATE LAB WORK ACUTE CARE INTERMEDIATE LABWORK MONTHLY NOTE INTERMEDIATE LABWORK ACUTE CARE INTERMEDIATE LABWORK MONTHLY EXAM INTERMEDIATE LAB WORK INTERMEDIATE LABWORK INTERMEDIATE LABWORK INTERMEDIATE LABWORK NEW CONCERN INTERMEDIATE LABWORK Chief Complaint INTERMEDIATE LABWORK MONTHLY NOTE INTERMEDIATE LABWORK ACUTE CARE INTERMEDIATE LABWORK MONTHLY EXAM INTERMEDIATE LAB WORK INTERMEDIATE LABWORK INTERMEDIATE LABWORK INTERMEDIATE LABWORK NEW CONCERN INTERMEDIATE LABWORK MONTHLY EXAM INTERMEDIATE LABWORK Chief Complaint MONTHLY NOTE INTERMEDIATE LABWORK ACUTE CARE INTERMEDIATE LABWORK MONTHLY EXAM INTERMEDIATE LAB WORK INTERMEDIATE LABWORK INTERMEDIATE LABWORK INTERMEDIATE LABWORK NEW CONCERN INTERMEDIATE LABWORK MONTHLY EXAM INTERMEDIATE LABWORK INTERMEDIATE LABWORK Chief Complaint INTERMEDIATE LABWORK INTERMEDIATE LABWORK MONTHLY NOTE INTERMEDIATE LABWORK MONTHLY EXAM INTERMEDIATE LABWORK INTERMEDIATE LAB WORK INTERMEDIATE LABWORK MOTNHLY NOTE INTERMEDIATE LABWORK Chief Complaint INTERMEDIATE LABWORK INTERMEDIATE LABWORK MONTHLY NOTE INTERMEDIATE LABWORK MONTHLY EXAM INTERMEDIATE LABWORK INTERMEDIATE LAB WORK INTERMEDIATE LABWORK MOTNHLY NOTE INTERMEDIATE LABWORK INTERMEDIATE LAB WORK Chief Complaint INTERMEDIATE LABWORK MONTHLY EXAM INTERMEDIATE LABWORK INTERMEDIATE LAB WORK INTERMEDIATE LABWORK MOTNHLY NOTE INTERMEDIATE LABWORK MONTHLY EXAM INTERMEDIATE LAB WORK INTERMEDIATE LABWORK LABWORK Chief Complaint MONTHLY EXAM INTERMEDIATE LABWORK INTERMEDIATE LAB WORK INTERMEDIATE LABWORK MOTNHLY NOTE INTERMEDIATE LABWORK MONTHLY EXAM INTERMEDIATE LAB WORK INTERMEDIATE LABWORK LABWORK INTERMEDIATE LAB WORK Chief Complaint INTERMEDIATE LABWORK LABWORK INTERMEDIATE LAB WORK INTERMEDIATE LABWORK INTERMEDIATE LABWORK MONTHLY EXAM MONTHLY NOTE MONTHLY EXAM INTERMEDIATE LAB WORK Chief Complaint MONTHLY NOTE MONTHLY EXAM MONTHLY EXAM - RESIDENT CARE AID INTERMEDIATE LAB WORK MONTHLY EXAM - MD INTERMEDIATE LAB WORK Chief Complaint MONTHLY EXAM - RESIDENT CARE AID INTERMEDIATE LAB WORK MONTHLY EXAM - MD INTERMEDIATE LAB WORK LABWORK Chief Complaint MONTHLY EXAM - RESIDENT CARE AID INTERMEDIATE LAB WORK MONTHLY EXAM - INTERMEDIATE LAB WORK MONTHLY NOTE -PA NEW CONCERN INTERMEDIATE LAB WORK LABWORK Chief Complaint MONTHLY EXAM - RESIDENT CARE AID INTERMEDIATE LAB WORK MONTHLY EXAM - MD INTERMEDIATE LAB WORK MONTHLY NOTE -PA NEW CONCERN INTERMEDIATE LAB WORK MONTHLY EXAM MD LABWORK INTERMEDIATE LAB WORK Chief Complaint INTERMEDIATE LAB WOR K MONTHLY NOTE -PA NEW CONCERN INTERMEDIATE LAB WORK MONTHLY EXAM MD LABWORK INTERMEDIATE LAB WORK INTERMEDIATE LAB WORK INTERMEDIATE LAB WORK Chief Complaint NEW CONCERN INTERMEDIATE LAB WORK MONTHLY EXAM MD LABWORK INTERMEDIATE LAB WORK INTERMEDIATE LAB WORK NEW CONCERN INTERMEDIATE LAB WORK MONTHLY EXAM Chief Complaint Admit Date MONTHLY NOTE June 07, 2024 4: 12pm INTERMEDIATE LAB WORK June 11, 2024 5:30am NEW CONCERN June 18, 2024 1 :49pm INTERMEDIATE LAB WORK July 09, 2024 5:00am MONTHLY EXAM July 09, 2024 5 :27pm INTERMEDIATE LAB WORK August 06, 2024 4: 00am INTERMEDIATE LAB WORK August 19, 2024 1 2:05pm Chief Complaint Admit Date MONTHLY NOTE June 07, 2024 4: 12pm INTERMEDIATE LAB WORK June 11, 2024 5:30am NEW CONCERN June 18, 2024 1 :49pm INTERMEDIATE LAB WORK July 09, 2024 5:00am MONTHLY EXAM July 09, 2024 5 :27pm NEW CONCERN August 05, 2024 4:07 pm INTERMEDIATE LAB WORK August 06, 2024 4: 00am INTERMEDIATE LAB WORK August 19, 2024 1 2:05pm NEW CONCERN August 19, 2024 4:4 9pm Chief Complaint Admit Date NEW CONCERN August 05, 2024 4:07 pm INTERMEDIATE LAB WORK August 06, 2024 4: 00am INTERMEDIATE LAB WORK August 19, 2024 1 2:05pm NEW CONCERN August 19, 2024 4:4 9pm INTERMEDIATE LAB WORK September 03, 2024 5: 00am MONTHLY EXAM September 03, 2024 4:52 pm LABWORK September 04, 2024 5:00 am INTERMEDIATE LAB WORK October 08, 2024 5:00 am Chief Complaint Admit Date NEW CONCERN August 05, 2024 4:07 pm INTERMEDIATE LAB WORK August 06, 2024 4: 00am INTERMEDIATE LAB WORK August 19, 2024 1 2:05pm NEW CONCERN August 19, 2024 4:4 9pm INTERMEDIATE LAB WORK September 03, 2024 5: 00am MONTHLY EXAM September 03, 2024 4:52 pm LABWORK September 04, 2024 5:00 am INTERMEDIATE LAB WORK October 08, 2024 5:00 am INTERMEDIATE LAB WORK October 11, 2024 12:3 0pm Chief Complaint Admit Date INTERMEDIATE LAB WORK September 03, 2024 5: 00am MONTHLY EXAM September 03, 2024 4:52 pm LABWORK September 04, 2024 5:00 am MONTHLY NOTE October 07, 2024 2:34pm INTERMEDIATE LAB WORK October 08, 2024 5:00 am INTERMEDIATE LAB WORK October 11, 2024 12:3 0pm INTERMEDIATE LAB WORK November 05, 2024 5:0 0am INTERMEDIATE LAB WORK November 07, 2024 5:0 0am INTERMEDIATE LAB WORK November 15, 2024 5: 30am LABWORK December 04, 2024 5:00a m LABWORK December 16, 2024 5:00 am Chief Complaint Admit Date INTERMEDIATE LAB WORK September 03, 2024 5: 00am MONTHLY EXAM September 03, 2024 4:52 pm LABWORK September 04, 2024 5:00 am MONTHLY NOTE October 07, 2024 2:34pm INTERMEDIATE LAB WORK October 08, 2024 5:00 am INTERMEDIATE LAB WORK October 11, 2024 12:3 0pm NEW CONCERN October 11, 2024 2:52pm INTERMEDIATE LAB WORK November 05, 2024 5:0 0am INTERMEDIATE LAB WORK November 07, 2024 5:0 0am INTERMEDIATE LAB WORK November 15, 2024 5: 30am [...] accepted: Orders in this encounter This technologist ([id number]) and ([id number]) wore surgical masks/gloves during MRI exam. Patient wore surgical mask. documented in this encounter Reason for Visit (unrecogniz ed section and content) Reason Comments Multiple Sclerosis [facility] Specialty Diagnoses / Procedures Referred By Contac t Referred To Contact Infusion Therapy Diagnoses Multiple sclerosis, primary progressive (HCC) Procedures TN INJECTION, OCRELIZUMAB, 1 MG Willard Epperson MD [address] [facility] [address] [place] [address] [facility] [address] [place] [address] Referral ID Status Reason Start Date Expiration Date V isits Requested Visits Authorized [id number] Pending Review 03/31/2021 05/30/2021 1 1 Status Reason Specialty Diagnoses / Procedures Referre d By Contact Referred To Contact Closed Radiology Diagnoses Multiple sclerosis (HCC) Procedures MR Brain With And Without Contrast Willard Epperson MD [address] [facility] [address] [place] [address] Reason Comments Multiple Sclerosis 6 month [facility] Status Reason Specialty Diagnoses / Procedures Referred By Contact Referred To Contact Closed Infusion Therapy Diagnoses Multiple sclerosis Procedures TN INJECTION, OCRELIZUMAB, 1 MG Willard Epperson MD [address] [facility] [address] [place] [address] [facility] [address] [place] [address] Reason Comments Multiple Sclerosis Status Reason Specialty Diagnoses / Procedures Referred By Contact Referred To Contact Closed Infusion Therapy Diagnoses Multiple sclerosis, primary progressive (HCC) Procedures TN INJECTION, OCRELIZUMAB, 1 MG Willard Epperson MD [address] [facility] [address] [place] [address] [facility] [address] [place] [address] Status Reason Specialty Diagnoses / Procedures Referre d By Contact Referred To Contact Closed Radiology Diagnoses Multiple sclerosis (HCC) Procedures MR Brain Without Contrast Willard Epperson MD [address] [place] [address] Status Reason Specialty Diagnoses / Procedures Referred By Contact Referred To Contact Authorized Infusion Therapy Diagnoses Multiple sclerosis [facility] 6 months Procedures TN INJECTION, OCRELIZUMAB, 1 MG CHEMO Willard Epperson MD [address] [facility] [address] [place] [address] [facility]fusion [address] [place] [address] Status Reason Specialty Diagnoses / Procedures Referred By Contact Referred To Contact Canceled Specialty Services Required/[facility] Diagnoses Multiple sclerosis, primary progressive (HCC) Willard Epperson MD [address] [place] [address] [place] [address] Status Reason Specialty Diagnoses / Procedures Referred By Contact Referred To Contact Authorized Infusion Therapy Diagnoses Multiple sclerosis, primary progressive (HCC) Procedures TN INJECTION, OCRELIZUMAB, 1 MG Willard Epperson MD [address] [place] [address] [facility] [address] [place] [address] Reason Comments Multiple Sclerosis [facility] 6mo, 2hr Status Reason Specialty Diagnoses / Procedures Referred By Contact Referred To Contact Closed Infusion Therapy Diagnoses Multiple sclerosis [facility] 6 months Procedures TN INJECTION, OCRELIZUMAB, 1 MG CHEMO Willard Eppreson MD [address] [facility] [address] [place] [address] [facility]fusion [address] [place] [address] Reason Onset Date Comments Medication Refill 01/08/2021 Reason Comments Multiple Sclerosis Care Teams (unrecognized sec tion and content) Ergonomics Engineer Relationship Specialty Start Date End Date Joan Hughes MD [address] [facility] [address] [place] [id number] PCP - General Family Medicine 09/28/18 Ergonomics Engineer Relationship Specialty Start Date End Date Joan Hughes MD [address] [facility] [address] [place] [address] [phone] PCP - General Family Medicine 09/28/18 Ergonomics Engineer Relationship Specialty Start Date End Date Joan Hughes MD [address] [facility] [address] [place] [address] [id number] PCP - General Family Medicine 09/28/18 Ergonomics Engineer Relationship Specialty Start Date End Date Joan Hughes MD [address] [facility] [address] [place] [address] [id number] PCP - General Family Medicine 09/28/18 Ergonomics Engineer Relationship Specialty Start Date End Date Joan Hughes MD [address] [place] [address] PCP - General Family Practice 05/11/16 Team Status: Active Member Role Status Dates Dr. Joan Hughes MD Family Provider Active Dr. Joan Hughes MD Primary Care Provider Active Team Status: Inactive Member Role Status Dates Dr. Joan Hughes MD Primary Care Provider Active Britney Worthington RESIDENT CARE AID, RESIDENT CARE AID-C Attending Provider Active Team Status: Inactive Member [...] Active Asad Jamison MD Attending Provider Active Ergonomics Engineer Relationship Specialty Start Date End Date Joan Hughes MD [id number] [place] [address] PCP - General Family Medicine 09/28/18 Team [...] End: June 07, 2024 Britney Worthington NP [facility]IDENT [facility]-C Attending Provider Active Start: June 07, 2024 [...] 2024 End: June 18, 2024 Britney Worthington RESIDENT CARE AID, RESIDENT [facility]ARE [facility]-C Attending Provider Active Start: June 18, 2024 End: June 18, 2024 Team Status: Active Member Role Status Dates Dr. Joan uHghes MD Primary Care Provider Active Start: July [...] End: August 05, 2024 Britney Worthington NP [facility]IDENT [facility]-C Attending Provider Active Start: August 05, 2024 [...] End: August 19, 2024 Britney Worthington NP [facility]IDENT [facility]-C Attending Provider Active Start: August 19, 2024 [...] October 07, 2024 End: October 07, 2024 WLILIAM Moore NPC Attending Provider Active Start: October [...] section and content) DATE CREATED AUTHOR 04/13/2021 [facility] DATE CREATED AUTHOR AUTHOR'S ORGANIZ ATION 01/15/2022 [facility] DATE CREATED AUTHOR AUTHOR'S ORGANIZ ATION 11/16/2022 [facility] DATE CREATED AUTHOR AUTHOR'S ORGANIZ ATION 01/03/2025 [facility] Goals (unrecognized section and content) Goals [...] prosecute any alcohol or drug abuse patient.[facility] FOR RECORDS PERTAINING TO PATIENTS WHO [...] BE BASED ON THE PRIMARY CLINICAL RECORDS. [employer] provides no warranty or guarantee of the accuracy or completeness of information in this document.
--- NOTE | 2025-01-04 02:45 | CT_ITS ---
PROCEDURE: CT CHEST, ABD, PELVIS WO CONT 01/04/2025 REASON FOR EXAM: SUSPECTED PNA ON CXR WITH UTI AND SEPSIS. TECHNIQUE: Chest, abdomen and pelvis CT without intravenous contrast. Coronal and Sagittal reconstruction series were provided. One or more dose reduction techniques were used (e.g., Automated exposure control, adjustment of the mA and/or kV according to patient size, use of iterative reconstruction technique. RADIATION DOSE SUMMARY: CTDlvol: 23 mGy DLP: 1069 mGycm COMPARISON: No FINDINGS: Unremarkable base of neck and axilla. Thoracic spine scoliosis and degeneration. Esophageal reflux. Upper limits of normal heart size. Moderate pericardial effusion. No acute vascular pathology on noncontrast scanning. Pectus deformity. Right IJ CVC tip in SVC. No acute chest wall findings. Central airways are patent. Bibasilar posterior airspace disease favoring atelectasis. No definite consolidation large effusion or pneumothorax. Upper abdominal solid organs show no acute findings. Bilateral low-density adrenal gland nodularity favoring benign etiology. Bilateral nephrolithiasis, including multiple 1 cm left renal calcifications. Bilateral moderate hydronephrosis. This may be on the basis of reflux, there are no ureteral stones. On the left, there is fat stranding in the renal sinus, possible urinary tract infection. There is bladder wall thickening with adjacent fat stranding. Catheter tip in bladder lumen. Normal uterus and ovaries. No retroperitoneal or pelvic adenopathy. No free air. Nonobstructed bowel. Diverticulosis. No acute large bowel findings. Lumbar spine degeneration. No acute abdominal wall findings. CT/CT Chest, Abd, Pelvis WO Cont IMPRESSION: Bibasilar airspace disease favoring atelectasis. Possible left-sided urinary tract infection. Possible bilateral ureteral reflux. Cystitis. Reading Location: [place] [address]
--- OUTSIDE RECORDS SUMMARY | 2025-01-04 02:51 | XMS RPT_ITS | CCD ---
Author Organization [facility] Care Team Providers Care Horologist Name Role Phone No, Physician Unavailable Unavailable Unavailable Unavailable Joan Wallace Primary Care Provider No, Physician Primary Care Provider Joan Antunez Primary Care Provider [phone] Jaon Hughes MD Primary Care Provider Joan Hughes MD Primary Care Provider JOAN HUGHES Primary Care Unavailable WILLARD EPPERSON Attending Unavailabl e WILLARD EPPERSON Attending Unavailabl e JOAN HUGHES Primary Care Unavailable JOAN HUGHES Primary Care Unavailable WILLARD EPPERSON Attending Unavailabl e WILLARD EPPERSON Admitting Unavailabl e WILLARD EPPERSON Attending Unavailabl e JAON HUGHES Primary Care Unavailable WILLARD EPPERSON Referring [...] Emergency Provider Dr. Faheem Lamb Admit Provider [phone] Dr. Faheem Lamb Attending Provider Dr. Faheem Lamb Other Provider Dr. Maile Apodaca Attending Provider Dr. Maile Apodaca Other Provider Dr. Maile Apodaca Referring Provider Dr. Jose Cruz Wright Attending Provider Dr. Jose Cruz Wright Other Provider Dr. Alan Terry Other Provider Jaylen YARN WASHER, YARN WASHER-C Meera Other Provider Dr. Rina Diaz Other Provider Dr. Alan Terry Attending Provider Dr. Rina Diaz Attending Provider Dr. Bijan Swain Attending Provider Dr. Bijan Swain Other Provider Dr. Anil Abreu Attending Provider Dr. Alek Ray Referring Provider Elin YARN WASHER, YARN WASHER-C Britney Attending Provider Joan Sher MD Primary Care Provider JOAN HUGHES Primary Care Unavailable WILLARD EPPERSON Attending JOAN Antunez Primary Care Unavailable WILLARD EPPERSON Attending Dr. Joan Antunez Primary Care Provider Dr. Joan Hughes Primary Care Provider Elin YARN WASHER, YARN WASHER-C Britney Attending Provider Dr. Joan Sher Primary Care Provider Elin YARN WASHER, YARN WASHER-C Britney Attending Provider Dr. Joan Sher Primary Care Provider Elin YARN WASHER, YARN WASHER-C Britney Attending Provider Dr. Joan Sher Primary Care Provider Elin YARN WASHER, YARN WASHER-C Britney Attending Provider Dr. Joan Sher Primary Care Provider Tickgray YARN WASHER, YARN WASHER-C Britney Attending Provider Joan Sher MD Primary Care Provider Dr. Breanne Ruiz Attending Provider [phone] Dr. Joan Hughes Primary Care Provider Elin YARN WASHER, YARN WASHER-C Britney Attending Provider Dr. Breanne Hensley Attending Provider [phone] Dr. Joan Hughes Primary Care Provider Elin YARN WASHER, YARN WASHER-C Britney Attending Provider Dr. Joan Sher Primary Care Provider Elin YARN WASHER, YARN WASHER-C Britney Attending Provider Dr. Breanne Hensley Attending Provider [phone] Dr. Joan Hughes Primary Care Provider Elin YARN WASHER, YARN WASHER-C Britney Attending Provider Dr. Joan Sher Primary Care Provider Tickgray YARN WASHER, YARN WASHER-C Britney Attending Provider MD Breanne Robbins Attending Provider Dr. Joan Sher Primary Care Provider [place]ickgray YARN WASHER, YARN WASHER-C Britney Attending Provider Dr. Breanne Ruiz Attending Provider [phone] Dr. Joan Hughes Primary Care Provider Tickgray YARN WASHER, YARN WASHER-C Britney Attending Provider OLGA Santacruz Attending Provider [phone] FRANCIS Romeo Attending Provider [phone] Dr. Joan Hughes Primary Care Provider Tickgray YARN WASHER, YARN WASHER-C Britney Attending Provider Dr. Breanne Ruiz Attending Provider [phone] OLGA Santacruz Attending Provider [phone] Ferullo, YARN WASHER-C Poornima Attending Provider Dr. Joan Hughes Primary Care Provider Dr. Breanne Ruiz Attending Provider [phone] Dr. Joan Hughes Primary Care Provider Elin YARN WASHER, YARN WASHER-C Britney Attending Provider Dr. Joan Hughes MD Primary Care Provider Elin YARN WASHER-C, Britney Attending Provider Breanne Ruiz MD Attending Provider Unavaila keara Ruiz MD, Breanne Referring Provider UnavailDr. Breanne Cole MD Attending Provider [phone] Dr. Joan Hughes MD Primary Care Provider [phone] Elin YARN WASHER-C, Britney Attending Provider Breanen Ruiz MD Attending Provider Unavaila keara Ruiz MD, Breanne Referring Provider Unavaila Dr. Breanne Babin MD Attending Provider [phone] Elin YARN WASHER-C, Britney Attending Provider [phone] Dr. Joan Hughes MD Primary Care Provider Breanne Ruiz MD Attending Provider Unavaila ble Elin YARN WASHER-C, Britney Attending Provider Breanne Ruiz MD Referring [...] Unavailable [place], Joan Primary Care Unavailable [place] YARN WASHER, Britney Attending Unavailable Oleghe OLS, Efewongbe Attending Unavailabl e [place], Joan Primary Care Unavailable [place], Joan Primary Care Unavailable [place] YARN WASHER, Britney Attending Unavailable [place] YARN WASHER, Britney Attending Unavailable [place], Joan Primary Care Unavailable [place] YARN WASHER, Britney Attending Unavailable [place], Joan Primary Care Unavailable Oleghe, Efewongbe Attending Unavailable [place], Joan Primary Care Unavailable [place] YARN WASHER, Britney Attending Unavailable [place], Joan Primary Care Unavailable [place], Joan Primary Care Unavailable [place] YARN WASHER, Britney Attending Unavailable [place], Joan Primary Care Unavailable Oleghe, Efewongbe Attending Unavailable [place] YARN WASHER, Britney Attending Unavailable [place], Joan Primary Care Unavailable [place], Joan Primary Care Unavailable Oleghe, Efewongbe Attending Unavailable [place], Joan Primary Care Unavailable [place] YARN WASHER, Britney Attending Unavailable [place], Joan Primary Care Unavailable [place] YARN WASHER, Britney Attending Unavailable [place], Joan Primary Care Unavailable Oleghe, Efewongbe Attending Unavailable [place], Joan Primary Care Unavailable [place] YARN WASHER, Britney Attending Unavailable [place] YARN WASHER, Britney Attending Unavailable [place], Joan Primary Care Unavailable Oleghe OLS, Efewongbe [facility] Unavailable Allergies Allergy Classification Reported Allergen(s) Allergy Type Date of Onset Reaction(s) Facility Aspirin / Caffeine / Orphenadrine (11 sources) Aspirin / Caffeine / Orphenadrine Drug Allergy 5 [facility] NSAIDs (20 sources) Ibuprofen Drug Allergy 5 Swelling, Hives, Itching [facility] Penicillins (antibiotic) (11 sources) Penicillins Drug Allergy 5 [facility] Sulfonamides (antibiotic) (11 sources) Sulfonamides (Antibiotic) Drug Allergy 6 [facility] Tetracyclines (antibiotic) (11 sources) Tetracycline Drug Allergy 5 [facility] (20 sources) aspirin / caffeine / orphenadrine; Translations: [ORPHENADRINE- A-CAFFEINE] Propensity to adverse reactions to drug 5 [facility] Work Phone: (20 sources) ibuprofen; Translations: [IBUPROFEN] Propensity to adverse reactions to drug 8 Swelling [facility] Work Phone: (20 sources) naproxen; Translations: [NAPROXEN SODIUM] Propensity to adverse reactions to drug 5 Hives, Itching, Swelling [facility] Work Phone: (20 sources) Penicillins; Translations: [PENICILLINS] Propensity to adverse reactions to drug 5 Hives [facility] Work Phone: (20 sources) Sulfonamides (Antibiotic); Translations: [SULFA (SULFONAMIDE ANTIBIOTICS)] Propensity to adverse reactions to drug 6 [facility] Work Phone: (20 sources) tetracycline; Translations: [TETRACYCLINE] Propensity to adverse reactions to drug 5 [facility] Work Phone: (6 sources) Penicillins Propensity to adverse reactions to drug 5 [facility] (8 sources) Sulfonamides (Antibiotic) Propensity to adverse reactions to drug 6 [facility] (20 sources) Naproxen Drug Allergy 1 Rash [facility] (20 sources) tiZANidine Drug Allergy 9 Other: See Comments [facility] (2 sources) Penicillins Propensity to adverse reactions 5 [facility] (1 source) Naproxen Drug Allergy 1 [facility] Repository (1 source) Penicillins Drug allergy (disorder) 1 [facility] Repository (1 source) Sulfonamides (Antibiotic) Drug allergy (disorder) 1 [facility] Repository (1 source) tiZANidine Drug Allergy 1 [facility] Repository Medications Current Medications Medication Drug Class(es) Dates Sig (Normalized) Sig (Original) [facility] [phone] (Pf) 60 McG/0.5 Ml Intramuscular Syringe (9 [...] 0.9% (NS) 25 mL/hr, Intravenous, Continuous, Starting [facility] 05/04/17 at 0930 Rate/Dose Verify 05/04/2017 11:00 EST 25 mL/hr 25 mL/hr Start: 04-13-2017 End: 04-13-2017 take 25 mL intravenous route every hour sodium chloride 0.9% (NS) 25 mL/hr, Intravenous, Continuous, Starting [facility] 04/13/17 at 1215 Rate/Dose Verify 04/13/2017 12:15 [...] Auto (Unsp spec) [#/Vol] 0.91 10*3/uL 0.83-4.51 [facility] Absolute neutrophil countOrd ered By: Breanne Ruiz on 12-16-2024 Neutrophils (Bld) [#/Vol] 10.6 10*3/uL High 2.0-7.7 [facility] Anion gap in Serum or Plasma Ordered By: Breanne Kirklandmichaelbeverly on 12-16-2024 Anion gap [Moles/Vol] 15 mmol/L 5-15 [facility] Automated lymphocyte count a s percentage of total leukocytesOrdered By: Breanne Ruiz on 12-16-2024 Lymphocytes/100 WBC Auto (Unsp spec) 6.6 % Low 19-41 [facility] BUN/creatinine ratioOrdered By: [facility] Kirklandmichaelbeverly on 12-16-2024 Urea nitrogen/Creatinine [Mass ratio] 27.6 mg/mg High 10-20 [facility] Basophil percentageOrdered B y: Abbielalitachetan Kirklandmichaelbeverly on 12-16-2024 Basophils/100 WBC (Bld) 0.7 % 0-1 [facility] Carbon dioxide, total [Moles /volume] in Central venous bloodOrdered By: Breanne Ruiz on 12-16-2024 CO2 [Moles/Vol] 16.7 mmol/L Low 21.0-32.0 [facility] Chloride assayOrdered By: adalbertochetan Ruiz on 12-16-2024 Chloride [Moles/Vol] 105 mmol/L 98-108 [facility] Eosinophil percentageOrdered By: [facility] Kirklandmichaelbeverly on 12-16-2024 Eosinophils/100 WBC (Bld) 1.2 % 0-5 [facility] Erythrocyte distribution wid th ratioOrdered By: Breanne Ruiz on 12-16-2024 Erythrocyte distribution width (RBC) [Ratio] 16.9 % High 11.6-14.6 [facility] Erythrocyte distribution wid th standard deviationOrdered By: adalbertoolallachetan Kirklandmichaelbeverly on 12-16-2024 Erythrocyte distribution width (RBC) [Ratio] 50.9 fl High 35.1-43.9 [facility] Glomerular filtration rate ( GFR) estimation/1.73 sq m using serum, plasma, or whole bOrdered By: Breanne Ruiz on 12-16-2024 GFR/1.73 sq M.predicted among non-blacks MDRD (S/P/Bld) [Vol rate/Area] 60 mL/min/{1.73_m2} >60 [facility] Comment on above: mL/min/1.73m2 CKD-EP I Creatinine Equation (2020) Hematocrit Auto (Bld) [Volum e fraction]Ordered By: Breanne Ruiz on 12-16-2024 Hematocrit (Bld) [Volume fraction] 42.8 % 37-47 [facility] Hemoglobin measurementOrdere d By: Breanne Ruiz on 12-16-2024 Hemoglobin (Bld) [Mass/Vol] 12.5 g/dL 12.0-15.0 [facility] Immature granulocytes/100 WB C Auto (Bld)Ordered By: Abbieolallachetan Ruiz on 12-16-2024 Immature granulocytes/100 WBC (Bld) 1.000 % High 0.0-0.9 [facility] Comment on above: IG% - Immature Granu locytes (promyelocytes, myelocytes and metamyelocytes) > 1% indicates that a LEFT SHIFT is Present. MCV (mean corpuscular volume ) determinationOrdered By: Breanne Ruiz on 12-16-2024 MCV (RBC) [Entitic vol] 83.6 fL 81-99 [facility] Mean corpuscular hemoglobin (MCH) determinationOrdered By: Breanne Ruiz on 12-16-2024 MCH (RBC) [Entitic mass] 24.4 pg Low 27.0-32.0 [facility] Mean corpuscular hemoglobin concentration (MCHC) determinationOrdered By: Breanne Ruiz on 12-16-2024 MCHC (RBC) [Mass/Vol] 29.2 g/dL Low 32-36 [facility] Mean platelet volume determi nationOrdered By: vannessa Ruiz on 12-16-2024 Platelet mean volume (Bld) [Entitic vol] 8.5 fL 6.2-12.0 [facility] Monocyte percentageOrdered B y: Breanne Ruiz on 12-16-2024 Monocytes/100 WBC (Bld) 13.7 % High 0-10 [facility] Neutrophil percentageOrdered By: Breanne Ruiz on 12-16-2024 Neutrophils/100 WBC (Bld) 76.8 % High 47-70 [facility] Nucleated red blood cell per centageOrdered By: Elioadalbertotracy Isaelhussain on 12-16-2024 Nucleated RBC/100 WBC (Bld) [Ratio] 0 % 0-5 [facility] Platelet countOrdered By: Elio vannessa Isaelmichaelbeverly on 12-16-2024 Platelets (Bld) [#/Vol] 520 10*3/uL High 150-450 [facility] Platelet estimateOrdered By: Breanne Kirklandmichaelbeverly on 12-16-2024 Platelets LM Ql (Bld) MOD INC ADEQ [facility] Potassium measurement (mass/ volume)Ordered By: Breanne Ruiz on 12-16-2024 Potassium (Unsp spec) [Mass/Vol] 4.3 mmol/L 3.3-5.1 [facility] RBC Auto (Bld) [#/Vol]Ordere d By: Abbietracy Isaelmichealbeverly on 12-16-2024 RBC (Bld) [#/Vol] 5.12 10*6/uL 4.2-5.4 [facility] Serum creatinine measurement (mass/volume)Ordered By: Breanne Kirklandmichaelbeverly on 12-16-2024 Creatinine [Mass/Vol] 1.03 mg/dL 0.70-1.20 [facility] Serum glucose measurement (m ass/volume)Ordered By: Breanne Kirklandmichaelbeverly on 12-16-2024 Glucose [Mass/Vol] 133 mg/dL High 70-99 [facility] Serum or plasma calcium jj urement (mass/volume)Ordered By: Breanne Kirklandmichaelbeverly on 12-16-2024 Calcium [Mass/Vol] 10.1 mg/dL 7.6-11.0 [facility] Serum or plasma urea nitroge n measurement (mass/volume)Ordered By: Breanne Kirklandmichaelbeverly on 12-16-2024 Urea nitrogen [Mass/Vol] 28 mg/dL High 4-19 [facility] Sodium levelOrdered By: Abbie tracy Sara on 12-16-2024 Sodium [Moles/Vol] 136 mmol/L 133-145 [facility] White blood cell (WBC) count Ordered By: Breanne Ruiz on 12-16-2024 WBC (Bld) [#/Vol] 13.8 10*3/uL High 4.4-11.0 [facility] Bilirubin Test strip Ql (U)O rdered By: Breanne Ruiz on 12-13-2024 Bilirubin Ql (U) Negative Negative [facility] Ketones Test strip Ql (U)Ord ered By: Breanne Ruiz on 12-13-2024 Ketones Ql (U) Negative Negative [facility] Microscopic analysis of urin e for red blood cells (RBC)Ordered By: Breanne Ruiz on 12-13-2024 Microscopic analysis of urine for red blood cells (RBC) 50-100 SEEN /hpf 0-5 [facility] Mucus LM Ql (Urine sed)Order ed By: Breanne Ruiz on 12-13-2024 Mucus Ql (Urine sed) 0 SEEN /hpf [facility] Nitrite Test strip Ql (U)Ord ered By: Breanne Ruiz on 12-13-2024 Nitrite Ql (U) Negative Negative [facility] Protein Test strip Ql (U)Ord ered By: Breanne Ruiz on 12-13-2024 Protein Ql (U) 500 mg/dl High Negative [facility] Squamous epithelial cells de tection in urine sediment by light microscopyOrdered By: Breanne Ruiz on 12-13-2024 Epithelial cells.squamous LM Ql (Urine sed) 0-5 SEEN /hpf 5-10 [facility] Urine clarityOrdered By: Prashant Ruiz on 12-13-2024 Clarity (U) Turbid Clear [facility] Urine color determinationOrd ered By: Breanne Ruiz on 12-13-2024 Color (U) Sunita Yellow [facility] Urine cultureOrdered By: Prashant uRiz on 12-13-2024 Bacteria identified Cx Nom (U) Staphylococcus aureus Abnormal [facility] Bacteria identified Cx Nom (U) Positive Abnormal [facility] Urine glucose detectionOrder ed By: Breanne Ruiz on 12-13-2024 Glucose Ql (U) Normal mg/dl Normal [facility] Urine leukocyte esterase det ection by dipstickOrdered By: Breanne Ruiz on 12-13-2024 Leukocyte esterase Test strip Ql (U) 500 /ul High Negative [facility] Urine pHOrdered By: Bhupendra Ruiz on 12-13-2024 pH (U) 6.0 [pH] 5.0 - 8.0 [facility] Urine sediment bacteria coun t by microscopy (number/high power field)Ordered By: Breanne Ruiz on 12-13-2024 Bacteria LM.HPF (Urine sed) [#/Area] 3 /[HPF] None Seen [facility] Urine specific gravity measu rementOrdered By: Breanne Ruiz on 12-13-2024 Specific gravity (U) [Rel density] 1.020 1.002-1.030 [facility] Urine urobilinogen measureme ntOrdered By: Breanne Ruiz on 12-13-2024 Urobilinogen Ql (U) Normal mg/dl Normal [facility] White blood cell countOrdere d By: Breanne Ruiz on 12-13-2024 White blood cell count >100 SEEN /hpf 0-5 [facility] Comment on above: Microscopic field is filled. Other elements may be obscured. Hemoglobin A1c percentageOrd ered By: Breanne Ruiz on 12-04-2024 HbA1c (Bld) [Mass fraction] 6.9 % High <5.7 [facility] Comment on above: Normal < 5.7 % Predi abetic 5.7 - 6.4 % Diabetic >or= 6.5 % Please note range changes. Bilirubin Test strip Ql (U)O rdered By: Breanne Ruiz on 11-15-2024 Bilirubin Ql (U) Negative Negative [facility] Ketones Test strip Ql (U)Ord ered By: Breanne Ruiz on 11-15-2024 Ketones Ql (U) Negative Negative [facility] Nitrite Test strip Ql (U)Ord ered By: Breanne Ruiz on 11-15-2024 Nitrite Ql (U) Negative Negative [facility] Protein Test strip Ql (U)Ord ered By: Breanne Ruiz on 11-15-2024 Protein Ql (U) 500 mg/dl High Negative [facility] Urine clarityOrdered By: Prashant Ruiz on 11-15-2024 Clarity (U) Turbid Clear [facility] Urine color determinationOrd ered By: Breanne Ruiz on 11-15-2024 Color (U) Yellow Yellow [facility] Urine cultureOrdered By: Prashant Ruiz on 11-15-2024 Bacteria identified Cx Nom (U) Proteus mirabilis Abnormal [facility] Urine glucose detectionOrder ed By: Breanne Ruiz on 11-15-2024 Glucose Ql (U) Normal mg/dl Normal [facility] Urine leukocyte esterase det ection by dipstickOrdered By: Breanne Ruiz on 11-15-2024 Leukocyte esterase Test strip Ql (U) 500 /ul High Negative [facility] Urine pHOrdered By: Bhupendra Ruiz on 11-15-2024 pH (U) 6.0 [pH] 5.0 - 8.0 [facility] Urine specific gravity measu rementOrdered By: Breanne Ruiz on 11-15-2024 Specific gravity (U) [Rel density] 1.020 1.002-1.030 [facility] Urine urobilinogen measureme ntOrdered By: Breanne Ruiz on 11-15-2024 Urobilinogen Ql (U) Normal mg/dl Normal [facility] Anion gap in Serum or Plasma Ordered By: Breanne Ruiz on 11-07-2024 Anion gap [Moles/Vol] 14 mmol/L 5-15 [facility] BUN/creatinine ratioOrdered By: Breanne Ruiz on 11-07-2024 Urea nitrogen/Creatinine [Mass ratio] 31.2 mg/mg High 10- [facility] Carbon dioxide, total [Moles /volume] in Central venous bloodOrdered By: Breanne Ruiz on 11-07-2024 CO2 [Moles/Vol] 20.8 mmol/L Low 21.0-32.0 [facility] Chloride assayOrdered By: Elio Ruiz on 11-07-2024 Chloride [Moles/Vol] 102 mmol/L 98-108 [facility] Glomerular filtration rate ( GFR) estimation/1.73 sq m using serum, plasma, or whole bOrdered By: Abbielalitachetan Kirklandmichaelbeverly on 11-07-2024 GFR/1.73 sq M.predicted among non-blacks MDRD (S/P/Bld) [Vol rate/Area] 41 mL/min/{1.73_m2} Low >60 [facility] Comment on above: mL/min/1.73m2 CKD-EP I Creatinine Equation (2020) Potassium measurement (mass/ volume)Ordered By: Breanne Ruiz on 11-07-2024 Potassium (Unsp spec) [Mass/Vol] 3.9 mmol/L 3.3-5.1 [facility] Serum creatinine measurement (mass/volume)Ordered By: Breanne Ruiz on 11-07-2024 Creatinine [Mass/Vol] 1.41 mg/dL High 0.70-1.20 [facility] Serum glucose measurement (m ass/volume)Ordered By: Breanne Ruiz on 11-07-2024 Glucose [Mass/Vol] 151 mg/dL High 70-99 [facility] Serum or plasma calcium jj urement (mass/volume)Ordered By: Breanne Ruiz on 11-07-2024 Calcium [Mass/Vol] 9.8 mg/dL 7.6-11.0 [facility] Serum or plasma urea nitroge n measurement (mass/volume)Ordered By: Breanne Ruiz on 11-07-2024 Urea nitrogen [Mass/Vol] 44 mg/dL High 4-19 [facility] Sodium levelOrdered By: Abbie tracy Isaelmichaelbeverly on 11-07-2024 Sodium [Moles/Vol] 138 mmol/L 133-145 [facility] Absolute lymphocyte countOrd ered By: Britney Worthington on 11-05-2024 Lymphocytes Auto (Unsp spec) [#/Vol] 0.88 10*3/uL 0.83-4.51 [facility] Absolute neutrophil countOrd ered By: Britney Worthington on 11-05-2024 Neutrophils (Bld) [#/Vol] 8.0 10*3/uL High 2.0-7.7 [facility] Anion gap in Serum or Plasma Ordered By: Britney Worthington on 11-05-2024 Anion gap [Moles/Vol] 15 mmol/L 5-15 [facility] Automated lymphocyte count a s percentage of total leukocytesOrdered By: Britney Worthington on 11-05-2024 Lymphocytes/100 WBC Auto (Unsp spec) 8.1 % Low 19-41 [facility] BUN/creatinine ratioOrdered By: Britney Worthington on 11-05-2024 Urea nitrogen/Creatinine [Mass ratio] 29.5 mg/mg High 10-20 [facility] Basophil percentageOrdered B y: Britney Worthington on 11-05-2024 Basophils/100 WBC (Bld) 1.1 % High 0-1 [facility] Bilirubin, totalOrdered By: Britney Worthington on 11-05-2024 Bilirubin [Mass/Vol] 0.21 mg/dL 0.00-1.30 [facility] Carbon dioxide, total [Moles /volume] in Central venous bloodOrdered By: Britney Worthington on 11-05-2024 CO2 [Moles/Vol] 18.5 mmol/L Low 21.0-32.0 [facility] Chloride assayOrdered By: Lawrence Worthington on 11-05-2024 Chloride [Moles/Vol] 103 mmol/L 98-108 [facility] Eosinophil percentageOrdered By: Britney Worthington on 11-05-2024 Eosinophils/100 WBC (Bld) 2.7 % 0-5 [facility] Erythrocyte distribution wid th ratioOrdered By: Britney Worthington on 11-05-2024 Erythrocyte distribution width (RBC) [Ratio] 16.5 % High 11.6-14.6 [facility] Erythrocyte distribution wid th standard deviationOrdered By: Britney Worthington on 11-05-2024 Erythrocyte distribution width (RBC) [Ratio] 49.0 fl High 35.1-43.9 [facility] Glomerular filtration rate ( GFR) estimation/1.73 sq m using serum, plasma, or whole bOrdered By: Britney Worthington on 11-05-2024 GFR/1.73 sq M.predicted among non-blacks MDRD (S/P/Bld) [Vol rate/Area] 46 mL/min/{1.73_m2} Low >60 [facility] Comment on above: mL/min/1.73m2 CKD-EP I Creatinine Equation (2020) Hematocrit Auto (Bld) [Volum e fraction]Ordered By: Britney Worthington on 11-05-2024 Hematocrit (Bld) [Volume fraction] 38.8 % 37-47 [facility] Hemoglobin measurementOrdere d By: Britney Worthington on 11-05-2024 Hemoglobin (Bld) [Mass/Vol] 11.7 g/dL Low 12.0-15.0 [facility] [facility] Imm[facility] granulocytes/100 WB C Auto (Bld)Ordered By: Britney Worthington on 11-05-2024 Immature granulocytes/100 WBC (Bld) 2.100 % High 0.0-0.9 [facility] Comment on above: IG% - Immature Granu locytes (promyelocytes, myelocytes and metamyelocytes) > 1% indicates that a LEFT SHIFT is Present. Laboratory - Chemistry and C hemistry - challengeOrdered By: Britney Worthington on 11-05-2024 AST [Catalytic activity/Vol] 23 U/L <32 [facility] MCV (mean corpuscular volume ) determinationOrdered By: Britney Worthington on 11-05-2024 MCV (RBC) [Entitic vol] 81.2 fL 81-99 [facility] Mean corpuscular hemoglobin (MCH) determinationOrdered By: Britney Worthington on 11-05-2024 MCH (RBC) [Entitic mass] 24.5 pg Low 27.0-32.0 [facility] Mean corpuscular hemoglobin concentration (MCHC) determinationOrdered By: Britney Worthington on 11-05-2024 MCHC (RBC) [Mass/Vol] 30.2 g/dL Low 32-36 [facility] Mean platelet volume determi nationOrdered By: Britney Worthington on 11-05-2024 Platelet mean volume (Bld) [Entitic vol] 9.1 fL 6.2-12.0 [facility] Monocyte percentageOrdered B y: Britney Worthington on 11-05-2024 Monocytes/100 WBC (Bld) 12.5 % High 0-10 [facility] Neutrophil percentageOrdered By: Britney Worthington on 11-05-2024 Neutrophils/100 WBC (Bld) 73.5 % High 47-70 [facility] Nucleated red blood cell per centageOrdered By: Britney Worthington on 11-05-2024 Nucleated RBC/100 WBC (Bld) [Ratio] 0 % 0-5 [facility] Platelet countOrdered By: Lawrence Worthington on 11-05-2024 Platelets (Bld) [#/Vol] 488 10*3/uL High 150-450 [facility] Potassium measurement (mass/ volume)Ordered By: Britney Worthington on 11-05-2024 Potassium (Unsp spec) [Mass/Vol] 4.3 mmol/L 3.3-5.1 [facility] RBC Auto (Bld) [#/Vol]Ordere d By: Britney Worthington on 11-05-2024 RBC (Bld) [#/Vol] 4.78 10*6/uL 4.2-5.4 [facility] Serum creatinine measurement (mass/volume)Ordered By: Britney Worthington on 11-05-2024 Creatinine [Mass/Vol] 1.28 mg/dL High 0.70-1.20 [facility] Serum globulin measurementOr dered By: Britney Worthington on 11-05-2024 Globulin (S) [Mass/Vol] 3.8 g/dL 2.2-4.2 [facility] Serum glucose measurement (m ass/volume)Ordered By: Britney Worthington on 11-05-2024 Glucose [Mass/Vol] 189 mg/dL High 70-99 [facility] Serum or plasma alanine juárez otransferase (ALT) measurementOrdered By: Britney Worthington on 11-05-2024 ALT [Catalytic activity/Vol] 45 U/L High <35 [facility] Serum or plasma albumin jj urement (mass/volume)Ordered By: Britney Worthington on 11-05-2024 Albumin [Mass/Vol] 3.3 g/dL Low 3.4-4.8 [facility] Serum or plasma albumin/glob ulin mass ratioOrdered By: Britney Worthington on 11-05-2024 Albumin/Globulin [Mass ratio] 0.9 {ratio} 0.9-2.4 [facility] Serum or plasma alkaline sofi sphatase measurementOrdered By: Britney Worthington on 11-05-2024 ALP [Catalytic activity/Vol] 95 U/L 35-104 [facility] Serum or plasma calcium jj urement (mass/volume)Ordered By: Britney Worthington on 11-05-2024 Calcium [Mass/Vol] 9.8 mg/dL 7.6-11.0 [facility] Serum or plasma urea nitroge n measurement (mass/volume)Ordered By: Britney Worthington on 11-05-2024 Urea nitrogen [Mass/Vol] 38 mg/dL High 4-19 [facility] Sodium levelOrdered By: Nancy Worthington on 11-05-2024 Sodium [Moles/Vol] 136 mmol/L 133-145 [facility] Total proteinOrdered By: Phillip Worthington on 11-05-2024 Protein [Mass/Vol] 7.1 g/dL 5.9-8.4 [facility] White blood cell (WBC) count Ordered By: Britney Worthington on 11-05-2024 WBC (Bld) [#/Vol] 10.9 10*3/uL 4.4-11.0 [facility] Gram stainOrdered By: Ana Lilia Worthington on 10-11-2024 Microscopic observation Gram stain Nom (Unsp spec) [facility] Calculated very low density lipoprotein (VLDL) cholesterol measurementOrdered By: Breanne Ruiz on 10-08-2024 Calculated very low density lipoprotein (VLDL) cholesterol measurement 52 mg/dL High 5-40 [facility] LDL calc ser/plasOrdered By: Breanne Ruiz on 10-08-2024 Cholesterol in LDL [Mass/Vol] 44 mg/dL [facility] Comment on above: Qmiuzieipn=373-622 m g/dL & Higher Jrrz=973 mg/dL or greater Screening total cholesterol/ high density lipoprotein (HDL) cholesterol ratioOrdered By: Breanne Ruiz on 10-08-2024 Cholesterol.total/Cholest dipak in HDL [Mass ratio] 4.16 {ratio} [facility] Serum or plasma cholesterol in HDL measurement (mass/volume)Ordered By: Breanne Ruiz on 10-08-2024 Cholesterol in HDL [Mass/Vol] 30 mg/dL Low >40 [facility] Comment on above: National Cholesterol Education Program (NCEP) guidelines:<40 mg/dL: Low HDL-cholesterol (major risk factor for CHD)>= 60 mg/dL: High HDL-cholesterol (negative risk factor for CHD)HDL-cholesterol is affected by a number of factors, e.g. smoking, exercise, hormones, sex and age. Serum or plasma cholesterol measurement (mass/volume)Ordered By: Breanne Ruiz on 10-08-2024 Cholesterol [Mass/Vol] 126 mg/dL <201 [facility] Comment on above: Cholesterol level, D esirable <200 mg/dLBorderline high cholesterol 200-239 mg/dLHigh cholesterol >=240 mg/dLRecommendations of the NCEP Adult Treatment Panel for the following risk-cutoff thresholds for the [place] population. Triglycerides measurementOrd ered By: Breanne Ruiz on 10-08-2024 Triglyceride [Mass/Vol] 261 mg/dL High <199 [facility] Comment on above: The drugs N-Acetylcy steine and Metamizole may falsely depress this assay. Normal range: <150 mg/dLBorderline High: 150-199 mg/dLHigh: 200-499 mg/dLVery High: >500 mg/dL Anion gap in Serum or Plasma Ordered By: Breanne Ruiz on 09-04-2024 Anion gap [Moles/Vol] 15 mmol/L 5-15 [facility] BUN/creatinine ratioOrdered By: Breanne Ruiz on 09-04-2024 Urea nitrogen/Creatinine [Mass ratio] 30.0 mg/mg High 10-20 [facility] Carbon dioxide, total [Moles /volume] in Central venous bloodOrdered By: Breanne Ruiz on 09-04-2024 CO2 [Moles/Vol] 20.5 mmol/L Low 21.0-32.0 [facility] Chloride assayOrdered By: Elio Ruiz on 09-04-2024 Chloride [Moles/Vol] 102 mmol/L 98-108 [facility] GFR/1.73 sq M.predicted cinda g non-blacks MDRD (S/P/Bld) [Vol rate/Area]Ordered By: Breanne Ruiz on 09-04-2024 Estimated GFR (MDRD) Non-Af Amer 68 >60 [facility] Comment on above: mL/min/1.73m2 CKD-EP I Creatinine Equation (2020) Glomerular filtration rate ( GFR) estimation/1.73 sq m using serum, plasma, or whole bOrdered By: Breanne Ruiz on 09-04-2024 GFR/1.73 sq M.predicted among non-blacks MDRD (S/P/Bld) [Vol rate/Area] 68 mL/min/{1.73_m2} >60 [facility] Comment on above: mL/min/1.73m2 CKD-EP I Creatinine Equation (2020) Potassium (Unsp spec) [Mass/ Vol]Ordered By: Breanne Ruiz on 09-04-2024 Potassium [Moles/Vol] 4.1 mmol/L 3.3-5.1 [facility] Comment on above: Hemolysis present, R esults could be affected. Potassium measurement (mass/ volume)Ordered By: Breanne Ruiz on 09-04-2024 Potassium (Unsp spec) [Mass/Vol] 4.1 mmol/L 3.3-5.1 [facility] Comment on above: Hemolysis present, R esults could be affected. Serum creatinine measurement (mass/volume)Ordered By: Breanne Ruiz on 09-04-2024 Creatinine [Mass/Vol] 0.93 mg/dL 0.70-1.20 [facility] Serum glucose measurement (m ass/volume)Ordered By: Breanne Ruiz on 09-04-2024 Glucose [Mass/Vol] 137 mg/dL High 70-99 [facility] Serum or plasma calcium jj urement (mass/volume)Ordered By: Breanne Ruiz on 09-04-2024 Calcium [Mass/Vol] 10.3 mg/dL 7.6-11.0 [facility] Serum or plasma urea nitroge n measurement (mass/volume)Ordered By: Breanne Ruiz on 09-04-2024 Urea nitrogen [Mass/Vol] 28 mg/dL High 4-19 [facility] Sodium levelOrdered By: Abbie tracy Isaelmichaelbeverly on 09-04-2024 Sodium [Moles/Vol] 137 mmol/L 133-145 [facility] Hemoglobin A1c percentageOrd ered By: Breanne Ruiz on 09-03-2024 HbA1c (Bld) [Mass fraction] 7.9 % >5.7 [facility] Genital cultureOrdered By: Beverly borischetan Ruiz on 08-19-2024 Genital Culture Staphylococcus aureus Abnormal [facility] Gram stainOrdered By: Abbiegordy camarillo Isaelmichaelbeverly on 08-19-2024 Microscopic observation Gram stain Nom (Unsp spec) [facility] Absolute lymphocyte countOrd ered By: Breanne Ruiz on 08-06-2024 Lymphocytes Auto (Unsp spec) [#/Vol] 1.08 10*3/uL 0.83-4.51 [facility] Absolute neutrophil countOrd ered By: Breanne Ruiz on 08-06-2024 Neutrophils (Bld) [#/Vol] 7.0 10*3/uL 2.0-7.7 [facility] Anion gap in Serum or Plasma Ordered By: Breanne Ruiz on 08-06-2024 Anion gap [Moles/Vol] 13 mmol/L 5-15 [facility] Automated lymphocyte count a s percentage of total leukocytesOrdered By: Breanne Ruiz on 08-06-2024 Lymphocytes/100 WBC Auto (Unsp spec) 11.0 % Low 19-41 [facility] BUN/creatinine ratioOrdered By: Breanne Ruiz on 08-06-2024 Urea nitrogen/Creatinine [Mass ratio] 27.6 mg/mg High 10-20 [facility] Basophil percentageOrdered B y: Breanne Ruiz on 08-06-2024 Basophils/100 WBC (Bld) 0.7 % 0-1 [facility] Bilirubin, totalOrdered By: Breanne Ruiz on 08-06-2024 Bilirubin [Mass/Vol] 0.21 mg/dL 0.00-1.30 [facility] Carbon dioxide, total [Moles /volume] in Central venous bloodOrdered By: Breanne Ruiz on 08-06-2024 CO2 [Moles/Vol] 22.7 mmol/L 21.0-32.0 [facility] Chloride assayOrdered By: Elio Ruiz on 08-06-2024 Chloride [Moles/Vol] 101 mmol/L 98-108 [facility] Eosinophil percentageOrdered By: Breanne Ruiz 08-06-2024 Eosinophils/100 WBC (Bld) 3.8 % 0-5 [facility] Erythrocyte distribution wid th (RBC) [Ratio]Ordered By: Breanne Ruiz on 08-06-2024 Erythrocyte distribution width (RBC) [Entitic vol] 46.3 fL High 35.1-43.9 [facility] Erythrocyte distribution wid th ratioOrdered By: Breanne Ruiz on 08-06-2024 Erythrocyte distribution width (RBC) [Ratio] 15.6 % High 11.6-14.6 [facility] Erythrocyte distribution wid th standard deviationOrdered By: Breanne Ruiz on 08-06-2024 Erythrocyte distribution width (RBC) [Ratio] 46.3 fl High 35.1-43.9 [facility] GFR/1.73 sq M.predicted cinda g non-blacks MDRD (S/P/Bld) [Vol rate/Area]Ordered By: Breanne Ruiz on 08-06-2024 Estimated GFR (MDRD) Non-Af Amer 66 >60 [facility] Comment on above: mL/min/1.73m2 CKD-EP I Creatinine Equation (2020) Glomerular filtration rate ( GFR) estimation/1.73 sq m using serum, plasma, or whole bOrdered By: Breanne Ruiz on 08-06-2024 GFR/1.73 sq M.predicted among non-blacks MDRD (S/P/Bld) [Vol rate/Area] 66 mL/min/{1.73_m2} >60 [facility] Comment on above: mL/min/1.73m2 CKD-EP I Creatinine Equation (2020) Hematocrit Auto (Bld) [Volum e fraction]Ordered By: Breanne Ruiz on 08-06-2024 Hematocrit (Bld) [Volume fraction] 41.6 % 37-47 [facility] Hemoglobin measurementOrdere d By: Breanne Ruiz on 08-06-2024 Hemoglobin (Bld) [Mass/Vol] 12.5 g/dL 12.0-15.0 [facility] Immature granulocytes/100 WB C Auto (Bld)Ordered By: Breanne Ruiz on 08-06-2024 Immature granulocytes/100 WBC (Bld) 1.000 % High 0.0-0.9 [facility] Comment on above: IG% - Immature Granu locytes (promyelocytes, myelocytes and metamyelocytes) > 1% indicates that a LEFT SHIFT is Present. Laboratory - Chemistry and C hemistry - challengeOrdered By: Breanne Ruiz on 08-06-2024 AST [Catalytic activity/Vol] 16 U/L <32 [facility] Lymphocytes Auto (Unsp spec) [#/Vol]Ordered By: Breanne Ruiz on 08-06-2024 Lymphocytes (Bld) [#/Vol] 1.08 10*3/uL 0.83-4.5 1 [facility] Lymphocytes/100 WBC Auto (Un sp spec)Ordered By: Breanne Ruiz on 08-06-2024 Lymphocytes/100 WBC (Bld) 11.0 % Low 19-41 [facility] MCV (mean corpuscular volume ) determinationOrdered By: Breanne Ruiz on 08-06-2024 MCV (RBC) [Entitic vol] 80.9 fL Low 81-99 [facility] Mean corpuscular hemoglobin (MCH) determinationOrdered By: Breanne Ruiz on 08-06-2024 MCH (RBC) [Entitic mass] 24.3 pg Low 27.0-32.0 [facility] Mean corpuscular hemoglobin concentration (MCHC) determinationOrdered By: Breanne Ruiz on 08-06-2024 MCHC (RBC) [Mass/Vol] 30.0 g/dL Low 32-36 [facility] Mean platelet volume determi nationOrdered By: Breanne Ruiz on 08-06-2024 Platelet mean volume (Bld) [Entitic vol] 8.8 fL 6.2-12.0 [facility] Monocyte percentageOrdered B y: Breanne Ruiz on 08-06-2024 Monocytes/100 WBC (Bld) 12.5 % High 0-10 [facility] Neutrophil percentageOrdered By: Breanne Ruiz on 08-06-2024 Neutrophils/100 WBC (Bld) 71.0 % High 47-70 [facility] Nucleated red blood cell per centageOrdered By: Breanne Ruiz on 08-06-2024 Nucleated RBC/100 WBC (Bld) [Ratio] 0 % 0-5 [facility] Platelet countOrdered By: Elio Ruiz on 08-06-2024 Platelets (Bld) [#/Vol] 452 10*3/uL High 150-450 [facility] Potassium (Unsp spec) [Mass/ Vol]Ordered By: Breanne Ruiz on 08-06-2024 Potassium [Moles/Vol] 3.9 mmol/L 3.3-5.1 [facility] Potassium measurement (mass/ volume)Ordered By: Breanne Ruiz on 08-06-2024 Potassium (Unsp spec) [Mass/Vol] 3.9 mmol/L 3.3-5.1 [facility] RBC Auto (Bld) [#/Vol]Ordere d By: Breanne Ruiz on 08-06-2024 RBC (Bld) [#/Vol] 5.14 10*6/uL 4.2-5.4 [facility] Serum creatinine measurement (mass/volume)Ordered By: Breanne Ruiz on 08-06-2024 Creatinine [Mass/Vol] 0.96 mg/dL 0.70-1.20 [facility] Serum globulin measurementOr dered By: Breanne Ruiz on 08-06-2024 Globulin (S) [Mass/Vol] 3.8 g/dL 2.2-4.2 [facility] Serum glucose measurement (m ass/volume)Ordered By: Breanne Ruiz on 08-06-2024 Glucose [Mass/Vol] 188 mg/dL High 70-99 [facility] Serum or plasma alanine juárez otransferase (ALT) measurementOrdered By: Breanne Ruiz on 08-06-2024 ALT [Catalytic activity/Vol] 10 U/L <35 [facility] Serum or plasma albumin jj urement (mass/volume)Ordered By: Breanne Ruiz on 08-06-2024 Albumin [Mass/Vol] 3.3 g/dL Low 3.4-4.8 [facility] Serum or plasma albumin/glob ulin mass ratioOrdered By: Breanne Ruiz on 08-06-2024 Albumin/Globulin [Mass ratio] 0.9 {ratio} 0.9-2.4 [facility] Serum or plasma alkaline sofi sphatase measurementOrdered By: Breanne Ruiz on 08-06-2024 ALP [Catalytic activity/Vol] 80 U/L 35-104 [facility] Serum or plasma calcium jj urement (mass/volume)Ordered By: Breanne Ruiz on 08-06-2024 Calcium [Mass/Vol] 10.1 mg/dL 7.6-11.0 [facility] Serum or plasma urea nitroge n measurement (mass/volume)Ordered By: Breanne Ruiz on 08-06-2024 Urea nitrogen [Mass/Vol] 26 mg/dL High 4-19 [facility] Sodium levelOrdered By: Abbie kaminskirabia Sara on 08-06-2024 Sodium [Moles/Vol] 137 mmol/L 133-145 [facility] Total proteinOrdered By: Prashant Ruiz on 08-06-2024 Protein [Mass/Vol] 7.1 g/dL 5.9-8.4 [facility] White blood cell (WBC) count Ordered By: Breanne Ruiz on 08-06-2024 WBC (Bld) [#/Vol] 9.8 10*3/uL 4.4-11.0 [facility] Bilirubin Test strip Ql (U)O rdered By: Breanne Ruiz on 08-05-2024 Bilirubin Ql (U) Negative Negative [facility] Epithelial cells.squamous LM Ql (Urine sed)Ordered By: Breanne Ruiz on 08-05-2024 Epithelial cells.squamous LM.HPF (Urine sed) [#/Area] 0 /[HPF] 5-10 [facility] Glucose Ql (U)Ordered By: Elio Ruiz on 08-05-2024 Glucose (U) [Mass/Vol] 50 mg/dL High Normal [facility] Ketones Test strip Ql (U)Ord ered By: Breanne Ruiz on 08-05-2024 Ketones Ql (U) Negative Negative [facility] Microscopic analysis of urin e for red blood cells (RBC)Ordered By: Breanne Ruiz on 08-05-2024 Microscopic analysis of urine for red blood cells (RBC) 0-5 SEEN /hpf 0-5 [facility] Urine RBC 0-5 SEEN /hpf 0-5 [facility] Mucus LM Ql (Urine sed)Order ed By: Breanne Ruiz on 08-05-2024 Mucus Ql (Urine sed) 0 SEEN /hpf [facility] Nitrite Test strip Ql (U)Ord ered By: Breanne Ruiz on 08-05-2024 Nitrite Ql (U) Negative Negative [facility] Protein Test strip Ql (U)Ord ered By: Breanne Ruiz on 08-05-2024 Protein Ql (U) 500 mg/dl High Negative [facility] Squamous epithelial cells de tection in urine sediment by light microscopyOrdered By: Breanne Ruiz on 08-05-2024 Epithelial cells.squamous LM Ql (Urine sed) 0-5 SEEN /hpf 5-10 [facility] Urine blood detectionOrdered By: Breanne Ruiz on 08-05-2024 Urine Occult Blood 250 /ul High Negative [facility] Urine clarityOrdered By: Prashant Ruiz on 08-05-2024 Clarity (U) Turbid Clear [facility] Urine color determinationOrd ered By: Breanne Ruiz on 08-05-2024 Color (U) Straw Yellow [facility] Urine cultureOrdered By: Prashant Ruiz on 08-05-2024 Bacteria identified Cx Nom (U) Alpha Hemolytic Streptococcus Abnormal [facility] Bacteria identified Cx Nom (U) Klebsiella pneumoniae sp pneum Abnormal [facility] Urine glucose detectionOrder ed By: Breanne Ruiz on 08-05-2024 Glucose Ql (U) 50 mg/dl High Normal [facility] Urine leukocyte esterase det ection by dipstickOrdered By: Breanne Ruiz on 08-05-2024 Leukocyte esterase Test strip Ql (U) 500 /ul High Negative [facility] Urine pHOrdered By: Bhupendra Ruiz on 08-05-2024 pH (U) 6.0 [pH] 5.0 - 8.0 [facility] Urine sediment bacteria coun t by microscopy (number/high power field)Ordered By: Breanne Ruiz on 08-05-2024 Bacteria LM.HPF (Urine sed) [#/Area] 3 /[HPF] None Seen [facility] Urine specific gravity measu rementOrdered By: Breanne Ruiz on 08-05-2024 Specific gravity (U) [Rel density] 1.020 1.002-1.030 [facility] Urine urobilinogen measureme ntOrdered By: Breanne Ruiz on 08-05-2024 Urobilinogen Ql (U) Normal mg/dl Normal [facility] Urobilinogen Ql (U)Ordered B y: Breanne Ruiz on 08-05-2024 Urine Urobilinogen Normal mg/dl Normal [facility] White blood cell countOrdere d By: Breanne Ruiz on 08-05-2024 Urine WBC >100 SEEN /hpf 0-5 [facility] White blood cell count >100 SEEN /hpf 0-5 [facility] High density lipoprotein (HD L) measurementOrdered By: Breanne Ruiz on 07-09-2024 Cholesterol in HDL [Mass/Vol] 38 mg/dL Low >40 [facility] Comment on above: The drugs N-Acetylcy steine and Metamizole may falsely depress this assay. Reference Range HDL <40 mg/dL Low HDL Cholesterol HDL >or= 60 mg/dL High HDL Cholesterol Low density lipoprotein (LDL ) cholesterol measurementOrdered By: Breanne Ruiz on 07-09-2024 Cholesterol in LDL [Mass/Vol] 41 mg/dL 0-130 [facility] Serum or plasma cholesterol measurement (mass/volume)Ordered By: Breanne Ruiz on 07-09-2024 Cholesterol [Mass/Vol] 143 mg/dL <200 [facility] Comment on above: <200 mg/dL Desirable 200-240 mg/dL Borderline >240 mg/dL High Risk Triglycerides measurementOrd ered By: Breanne Ruiz on 07-09-2024 Triglyceride [Mass/Vol] 321 mg/dL High <199 [facility] Comment on above: The drugs N-Acetylcy steine and Metamizole may falsely depress this assay.Serum Triglycerides Reference Interval Normal <150 mg/dL Borderline high 150 - 199 mg/dL High 200 - 499 mg/dL Very High > or = 500 mg/dL Very low density lipoprotein (VLDL) cholesterol measurementOrdered By: Breanne Ruzi on 07-09-2024 VLDL Cholesterol 64 mg/dL High 5-40 [facility] Hemoglobin A1c percentageOrd ered By: Breanne Ruiz on 06-11-2024 HbA1c (Bld) [Mass fraction] 7.2 % High 3.8-5.6 [facility] Comment on above: Normal < 5.7 % Predi abetic 5.7 - 6.4 % Diabetic >or= 6.5 % Please note range changes. Whole blood hemoglobin A1c/t otal hemoglobin ratio (mass fraction)Ordered By: Breanne Ruiz on 09-05-2023 HbA1c (Bld) [Mass fraction] 6.7 % 3.8-5.6 [facility] Comment on above: Normal < 5.7 % Predi abetic 5.7 - 6.4 % Diabetic >or= 6.5 % Please note range changes. Basophil percentageOrdered B y: Breanne Ruiz on 08-10-2023 Potassium [Moles/Vol] 4.0 mmol/L 3.5-5.1 [facility] Comment on above: Slight Hemolysis, Re sult may be falsely increased. Absolute lymphocyte countOrd ered By: Breanne Ruiz on 08-08-2023 Lymphocytes Auto (Unsp spec) [#/Vol] 1.44 10*3/uL 0.83-4.51 [facility] Automated lymphocyte count a s percentage of total leukocytesOrdered By: Breanne Ruiz on 08-08-2023 Lymphocytes/100 WBC Auto (Unsp spec) 12.7 % 19-41 [facility] Basophil percentageOrdered B y: Eliokathrynchetan Sara on 08-08-2023 Basophils/100 WBC (Bld) 1.1 % 0-1 [facility] Bilirubin [Mass/Vol] 0.30 mg/dL 0.20-1.00 [facility] Comment on above: For patients on eltr ombopag therapy, use of Dimension [place] TBIL is not recommended. Chloride [Moles/Vol] 107 mmol/L 98-107 [facility] Eosinophils/100 WBC (Bld) 3.1 % 0-5 [facility] Glucose [Mass/Vol] 153 mg/dL 74-106 [facility] Comment on above: Fasting Glucose resu lt greater than or equal to 126 mg/dL suggests DIABETES MELLITUS per A.D.A. criteria. Hemoglobin (Bld) [Mass/Vol] 14.3 g/dL 12.0-15.0 [facility] Monocytes/100 WBC (Bld) 10.4 % 0-10 [facility] Neutrophils (Bld) [#/Vol] 8.1 10*3/uL 2.0-7.7 [facility] Neutrophils/100 WBC (Bld) 71.8 % 47-70 [facility] Potassium [Moles/Vol] 3.4 mmol/L 3.5-5.1 [facility] Protein [Mass/Vol] 6.9 g/dL 6.4-8.2 [facility] Sodium [Moles/Vol] 141 mmol/L 136-145 [facility] WBC (Bld) [#/Vol] 11.3 10*3/uL 4.4-11.0 [facility] Determination of erythrocyte mean corpuscular volume (MCV)Ordered By: Breanne Ruiz on 08-08-2023 MCV (RBC) [Entitic vol] 88.6 fL 81-99 [facility] [facility] Erythrocyte distribution wid th ratioOrdered By: Breanne Ruiz on 08-08-2023 Erythrocyte distribution width (RBC) [Ratio] 14.8 % 11.6-14.6 [facility] Erythrocyte distribution wid th standard deviationOrdered By: Breanne Ruiz on 08-08-2023 Erythrocyte distribution width (RBC) [Entitic vol] 47.9 fL 35.1-43.9 [facility] Hematocrit Auto (Bld) [Volum e fraction]Ordered By: Breanne Ruiz on 08-08-2023 Hematocrit (Bld) [Volume fraction] 46.7 % 37-47 [facility] Immature granulocytes/100 WB C Auto (Bld)Ordered By: Breanne Ruiz on 08-08-2023 Immature granulocytes/100 WBC (Bld) 0.900 % 0.0-0.9 [facility] Comment on above: IG% - Immature Granu locytes (promyelocytes, myelocytes and metamyelocytes) > 1% indicates that a LEFT SHIFT is Present. Laboratory - Chemistry and C hemistry - challengeOrdered By: adalbertoolallachetan Ruiz on 08-08-2023 Albumin/Globulin [Mass ratio] 0.9 {ratio} 0.9-2.4 [facility] ALP [Catalytic activity/Vol] 93 U/L 45-117 [facility] ALT [Catalytic activity/Vol] 36 U/L 13-56 [facility] CO2 [Moles/Vol] 26.0 mmol/L 21.0-32.0 [facility] Globulin (S) [Mass/Vol] 3.7 g/dL 2.2-4.2 [facility] Urea nitrogen/Creatinine [Mass ratio] 28.0 mg/mg 10-20 [facility] Laboratory - Hematology and Cell countsOrdered By: Breanne Ruiz on 08-08-2023 MCH (RBC) [Entitic mass] 27.1 pg 27.0-32.0 [facility] MCHC (RBC) [Mass/Vol] 30.6 g/dL 32-36 [facility] Nucleated RBC/100 WBC (Bld) [Ratio] 0 % 0-5 [facility] Platelet mean volume (Bld) [Entitic vol] 9.3 fL 6.2-12.0 [facility] Platelets (Bld) [#/Vol] 535 10*3/uL 150-450 [facility] No Panel InformationOrdered By: Breanne Ruiz on 08-08-2023 Estimated GFR (MDRD) Amer 105 mL/min >60 [facility] Comment on above: GFR Calc Estimated GFR (MDRD) Non-Af Amer 87 mL/min >60 [facility] Comment on above: Non- GFR Calc RBC Auto (Bld) [#/Vol]Ordere d By: Breanne Ruiz on 08-08-2023 RBC (Bld) [#/Vol] 5.27 10*6/uL 4.2-5.4 [facility] Serum or plasma calcium jj urement (mass/volume)Ordered By: Breanne Ruiz on 08-08-2023 Calcium [Mass/Vol] 10.0 mg/dL 8.5-10.1 [facility] Serum or plasma creatinine m easurement (mass/volume)Ordered By: Breanne Ruiz on 08-08-2023 Creatinine [Mass/Vol] 0.71 mg/dL 0.55-1.02 [facility] Comment on above: The validity of the calculated GFR & GFRAA in patients over 70 years has not been determined. Clinical correlation is essential. Serum or plasma urea nitroge n measurement (mass/volume)Ordered By: Breanne Ruiz on 08-08-2023 Urea nitrogen [Mass/Vol] 20 mg/dL 7-18 [facility] Thin prep Papanicolaou smear with manual screeningOrdered By: Breanne Ruiz on 08-08-2023 Thin prep Papanicolaou smear with manual screening 3.2 g/dL 3.2-5.0 [facility] Thin prep Papanicolaou smear with manual screening 31 U/L 15-37 [facility] Thin prep Papanicolaou smear with manual screening 8 5-15 [facility] Basophil percentageOrdered B y: Breanne Ruiz on 07-17-2023 Chloride [Moles/Vol] 109 mmol/L 98-107 [facility] Glucose [Mass/Vol] 150 mg/dL 74-106 [facility] Comment on above: Fasting Glucose resu lt greater than or equal to 126 mg/dL suggests DIABETES MELLITUS per A.D.A. criteria. Potassium [Moles/Vol] 3.8 mmol/L 3.5-5.1 [facility] Sodium [Moles/Vol] 143 mmol/L 136-145 [facility] Laboratory - Chemistry and C hemistry - challengeOrdered By: Breanne Ruiz on 07-17-2023 CO2 [Moles/Vol] 24.0 mmol/L 21.0-32.0 [facility] Urea nitrogen/Creatinine [Mass ratio] 31.3 mg/mg 10-20 [facility] No Panel InformationOrdered By: Breanne Ruiz on 07-17-2023 Estimated GFR (MDRD) Amer 114 mL/min >60 [facility] Comment on above: GFR Calc Estimated GFR (MDRD) Non-Af Amer 94 mL/min >60 [facility] Comment on above: Non- GFR Calc Serum or plasma calcium jj urement (mass/volume)Ordered By: Breanne Ruiz on 07-17-2023 Calcium [Mass/Vol] 9.6 mg/dL 8.5-10.1 [facility] Serum or plasma creatinine m easurement (mass/volume)Ordered By: Breanne Ruiz on 07-17-2023 Creatinine [Mass/Vol] 0.67 mg/dL 0.55-1.02 [facility] Comment on above: The validity of the calculated GFR & GFRAA in patients over 70 years has not been determined. Clinical correlation is essential. Serum or plasma urea nitroge n measurement (mass/volume)Ordered By: Breanne Ruiz on 07-17-2023 Urea nitrogen [Mass/Vol] 21 mg/dL 7-18 [facility] Thin prep Papanicolaou smear with manual screeningOrdered By: Breanne Ruiz on 07-17-2023 Thin prep Papanicolaou smear with manual screening 10 5-15 [facility] Basophil percentageOrdered B y: Breanne Ruiz on 07-03-2023 Chloride [Moles/Vol] 109 mmol/L 98-107 [facility] Glucose [Mass/Vol] 156 mg/dL 74-106 [facility] Comment on above: Fasting Glucose resu lt greater than or equal to 126 mg/dL suggests DIABETES MELLITUS per A.D.A. criteria. Potassium [Moles/Vol] 3.5 mmol/L 3.5-5.1 [facility] Comment on above: Slight Hemolysis, Re sult may be falsely increased. Sodium [Moles/Vol] 141 mmol/L 136-145 [facility] Laboratory - Chemistry and C hemistry - challengeOrdered By: Breanne Ruiz on 07-03-2023 CO2 [Moles/Vol] 25.0 mmol/L 21.0-32.0 [facility] Urea nitrogen/Creatinine [Mass ratio] 29.4 mg/mg 10-20 [facility] No Panel InformationOrdered By: Breanne Ruiz on 07-03-2023 Estimated GFR (MDRD) Amer 111 mL/min >60 [facility] Comment on above: GFR Calc Estimated GFR (MDRD) Non-Af Amer 92 mL/min >60 [facility] Comment on above: Non- GFR Calc Serum or plasma calcium jj urement (mass/volume)Ordered By: Breanne Ruiz on 07-03-2023 Calcium [Mass/Vol] 9.8 mg/dL 8.5-10.1 [facility] Serum or plasma creatinine m easurement (mass/volume)Ordered By: Breanne Ruiz on 07-03-2023 Creatinine [Mass/Vol] 0.68 mg/dL 0.55-1.02 [facility] Comment on above: The validity of the calculated GFR & GFRAA in patients over 70 years has not been determined. Clinical correlation is essential. Serum or plasma urea nitroge n measurement (mass/volume)Ordered By: Breanne Ruiz on 07-03-2023 Urea nitrogen [Mass/Vol] 20 mg/dL 7-18 [facility] Thin prep Papanicolaou smear with manual screeningOrdered By: Breanne Ruiz on 07-03-2023 Thin prep Papanicolaou smear with manual screening 7 5-15 [facility] Whole blood hemoglobin A1c/t otal hemoglobin ratio (mass fraction)Ordered By: Breanne Ruiz on 06-06-2023 HbA1c (Bld) [Mass fraction] 7.5 % 3.8-5.6 [facility] Comment on above: Normal < 5.7 % Predi abetic 5.7 - 6.4 % Diabetic >or= 6.5 % Please note range changes. Absolute lymphocyte countOrd ered By: Breanne Ruiz on 05-09-2023 Lymphocytes Auto (Unsp spec) [#/Vol] 1.09 10*3/uL 0.83-4.51 [facility] Basophil percentageOrdered B y: Breanne Ruiz on 05-09-2023 Basophils/100 WBC (Bld) 1.2 % 0-1 [facility] Bilirubin [Mass/Vol] 0.30 mg/dL 0.20-1.00 [facility] Comment on above: For patients on eltr ombopag therapy, use of Dimension [place] TBIL is not recommended. Chloride [Moles/Vol] 107 mmol/L 98-107 [facility] Eosinophils/100 WBC (Bld) 2.8 % 0-5 [facility] Glucose [Mass/Vol] 203 mg/dL 74-106 [facility] Comment on above: Glucose result great er than or equal to 200 mg/dLsuggests DIABETES MELLITUS per A.D.A. criteria. Neutrophils (Bld) [#/Vol] 5.5 10*3/uL 2.0-7.7 [facility] Neutrophils/100 WBC (Bld) 68.1 % 47-70 [facility] Potassium [Moles/Vol] 4.0 mmol/L 3.5-5.1 [facility] Protein [Mass/Vol] 7.0 g/dL 6.4-8.2 [facility] Sodium [Moles/Vol] 140 mmol/L 136-145 [facility] WBC (Bld) [#/Vol] 8.1 10*3/uL 4.4-11.0 [facility] Blood erythrocytes count (nu mber/volume)Ordered By: Breanne Ruiz on 05-09-2023 RBC (Bld) [#/Vol] 5.62 10*6/uL 4.2-5.4 [facility] Blood hemoglobin measurement (mass/volume)Ordered By: Breanne Ruiz on 05-09-2023 Hemoglobin (Bld) [Mass/Vol] 14.7 g/dL 12.0-15.0 [facility] Blood lymphocytes/100 leukoc ytesOrdered By: Breanne Ruiz on 05-09-2023 Lymphocytes/100 WBC (Bld) 13.4 % 19-41 [facility] Blood monocytes/100 leukocyt esOrdered By: vannessa Ruiz on 05-09-2023 Monocytes/100 WBC (Bld) 13.8 % 0-10 [facility] Blood platelet mean volumeOr dered By: Breanne Ruiz on 05-09-2023 Platelet mean volume (Bld) [Entitic vol] 9.6 fL 6.2-12.0 [facility] Determination of erythrocyte mean corpuscular volume (MCV)Ordered By: rBeanne Ruiz on 05-09-2023 MCV (RBC) [Entitic vol] 88.1 fL 81-99 [facility] Hematocrit Auto (Bld) [Volum e fraction]Ordered By: Breanne Ruiz on 05-09-2023 Hematocrit (Bld) [Volume fraction] 49.5 % 37-47 [facility] Laboratory - Chemistry and C hemistry - challengeOrdered By: vannessa Ruiz on 05-09-2023 ALP [Catalytic activity/Vol] 111 U/L 45-117 [facility] ALT [Catalytic activity/Vol] 57 U/L 13-56 [facility] CO2 [Moles/Vol] 25.0 mmol/L 21.0-32.0 [facility] Globulin (S) [Mass/Vol] 3.7 g/dL 2.2-4.2 [facility] Urea nitrogen/Creatinine [Mass ratio] 38.0 mg/mg 10-20 [facility] Laboratory - Hematology and Cell countsOrdered By: Breanne Ruiz on 05-09-2023 Erythrocyte distribution width (RBC) [Entitic vol] 49.4 fL 35.1-43.9 [facility] Erythrocyte distribution width (RBC) [Ratio] 15.6 % 11.6-14.6 [facility] Immature granulocytes/100 WBC (Bld) 0.700 % 0.0-0.9 [facility] Comment on above: IG% - Immature Granu locytes (promyelocytes, myelocytes and metamyelocytes) > 1% indicates that a LEFT SHIFT is Present. MCH (RBC) [Entitic mass] 26.2 pg 27.0-32.0 [facility] Nucleated RBC/100 WBC (Bld) [Ratio] 0 % 0-5 [facility] MCHC Auto (RBC) [Mass/Vol]Or dered By: Breanne Ruiz on 05-09-2023 MCHC (RBC) [Mass/Vol] 29.7 g/dL 32-36 [facility] No Panel InformationOrdered By: Breanne Ruiz on 05-09-2023 Estimated GFR (MDRD) Amer 111 mL/min >60 [facility] Comment on above: GFR Calc Estimated GFR (MDRD) Non-Af Amer 92 mL/min >60 [facility] Comment on above: Non- GFR Calc Platelets bldOrdered By: Prashant Ruiz on 05-09-2023 Platelets (Bld) [#/Vol] 553 10*3/uL 150-450 [facility] Serum or plasma albumin jj urement (mass/volume)Ordered By: Breanne Ruiz on 05-09-2023 Albumin [Mass/Vol] 3.3 g/dL 3.2-5.0 [facility] Serum or plasma albumin/glob ulin mass ratioOrdered By: Breanne Ruiz on 05-09-2023 Albumin/Globulin [Mass ratio] 0.9 {ratio} 0.9-2.4 [facility] Serum or plasma calcium jj urement (mass/volume)Ordered By: Breanne Ruiz on 05-09-2023 Calcium [Mass/Vol] 9.6 mg/dL 8.5-10.1 [facility] Serum or plasma creatinine m easurement (mass/volume)Ordered By: Breanne Ruiz on 05-09-2023 Creatinine [Mass/Vol] 0.68 mg/dL 0.55-1.02 [facility] Comment on above: The validity of the calculated GFR & GFRAA in patients over 70 years has not been determined. Clinical correlation is essential. Serum or plasma urea nitroge n measurement (mass/volume)Ordered By: Breanne Ruiz on 05-09-2023 Urea nitrogen [Mass/Vol] 26 mg/dL 7-18 [facility] Thin prep Papanicolaou smear with manual screeningOrdered By: Breanne Ruiz on 05-09-2023 Thin prep Papanicolaou smear with manual screening 37 U/L 15-37 [facility] Thin prep Papanicolaou smear with manual screening 8 5-15 [facility] Clostridium difficile detect ion by polymerase chain reactionOrdered By: Breanne Ruiz on 02-23-2023 C. difficile DNA MAGALIE+probe Ql (Unsp spec) [facility] Clostridium difficile detect ion by polymerase chain reactionOrdered By: Breanne Ruiz on 02-22-2023 C. difficile DNA MAGALIE+probe Ql (Unsp spec) [facility] Absolute lymphocyte countOrd ered By: Britney Worthington on 02-21-2023 Lymphocytes Auto (Unsp spec) [#/Vol] 0.97 10*3/uL 0.83-4.51 [facility] Basophil percentageOrdered B y: Britney Worthington on 02-21-2023 Basophils/100 WBC (Bld) 1.2 % 0-1 [facility] Chloride [Moles/Vol] 108 mmol/L 98-107 [facility] Eosinophils/100 WBC (Bld) 4.4 % 0-5 [facility] Glucose [Mass/Vol] 178 mg/dL 74-106 [facility] Comment on above: Fasting Glucose resu lt greater than or equal to 126 mg/dL suggests DIABETES MELLITUS per A.D.A. criteria. Neutrophils (Bld) [#/Vol] 8.1 10*3/uL 2.0-7.7 [facility] Neutrophils/100 WBC (Bld) 74.9 % 47-70 [facility] Potassium [Moles/Vol] 3.7 mmol/L 3.5-5.1 [facility] Sodium [Moles/Vol] 140 mmol/L 136-145 [facility] WBC (Bld) [#/Vol] 10.8 10*3/uL 4.4-11.0 [facility] Blood erythrocytes count (nu mber/volume)Ordered By: Britney Worthington on 02-21-2023 RBC (Bld) [#/Vol] 5.06 10*6/uL 4.2-5.4 [facility] Blood hemoglobin measurement (mass/volume)Ordered By: Britney Worthington on 02-21-2023 Hemoglobin (Bld) [Mass/Vol] 13.3 g/dL 12.0-15.0 [facility] Blood lymphocytes/100 leukoc ytesOrdered By: Britney Worthington on 02-21-2023 Lymphocytes/100 WBC (Bld) 9.0 % 19-41 [facility] Blood monocytes/100 leukocyt esOrdered By: Britney Worthington on 02-21-2023 Monocytes/100 WBC (Bld) 9.8 % 0-10 [facility] Blood platelet mean volumeOr dered By: Britney Worthington on 02-21-2023 Platelet mean volume (Bld) [Entitic vol] 9.2 fL 6.2-12.0 [facility] Determination of erythrocyte mean corpuscular volume (MCV)Ordered By: Britney Worthington on 02-21-2023 MCV (RBC) [Entitic vol] 89.5 fL 81-99 [facility] Hematocrit Auto (Bld) [Volum e fraction]Ordered By: Britney Worthington on 02-21-2023 Hematocrit (Bld) [Volume fraction] 45.3 % 37-47 [facility] Laboratory - Chemistry and C hemistry - challengeOrdered By: Britney Worthington on 02-21-2023 CO2 [Moles/Vol] 24.0 mmol/L 21.0-32.0 [facility] Urea nitrogen/Creatinine [Mass ratio] 37.7 mg/mg 10-20 [facility] Laboratory - Hematology and Cell countsOrdered By: Britney Worthington on 02-21-2023 Erythrocyte distribution width (RBC) [Entitic vol] 47.6 fL 35.1-43.9 [facility] Erythrocyte distribution width (RBC) [Ratio] 14.5 % 11.6-14.6 [facility] Immature granulocytes/100 WBC (Bld) 0.700 % 0.0-0.9 [facility] Comment on above: IG% - Immature Granu locytes (promyelocytes, myelocytes and metamyelocytes) > 1% indicates that a LEFT SHIFT is Present. MCH (RBC) [Entitic mass] 26.3 pg 27.0-32.0 [facility] Nucleated RBC/100 WBC (Bld) [Ratio] 0 % 0-5 [facility] MCHC Auto (RBC) [Mass/Vol]Or dered By: Britney Worthington on 02-21-2023 MCHC (RBC) [Mass/Vol] 29.4 g/dL 32-36 [facility] No Panel InformationOrdered By: Britney Worthington on 02-21-2023 Estimated GFR (MDRD) Amer 105 mL/min >60 [facility] Comment on above: GFR Calc Estimated GFR (MDRD) Non-Af Amer 87 mL/min >60 [facility] Comment on above: Non- GFR Calc Platelets bldOrdered By: Phillip Worthington on 02-21-2023 Platelets (Bld) [#/Vol] 500 10*3/uL 150-450 [facility] Serum or plasma calcium jj urement (mass/volume)Ordered By: Britney Worthington on 02-21-2023 Calcium [Mass/Vol] 9.1 mg/dL 8.5-10.1 [facility] Serum or plasma creatinine m easurement (mass/volume)Ordered By: Britney Worthington on 02-21-2023 Creatinine [Mass/Vol] 0.72 mg/dL 0.55-1.02 [facility] Comment on above: The validity of the calculated GFR & GFRAA in patients over 70 years has not been determined. Clinical correlation is essential. Serum or plasma urea nitroge n measurement (mass/volume)Ordered By: Britney Worthington on 02-21-2023 Urea nitrogen [Mass/Vol] 27 mg/dL 7-18 [facility] Thin prep Papanicolaou smear with manual screeningOrdered By: Britney Worthington on 02-21-2023 Thin prep Papanicolaou smear with manual screening 8 5-15 [facility] Bilirubin Test strip Ql (U)O rdered By: Breanne Ruiz on 02-13-2023 Bilirubin Ql (U) Negative Negative [facility] Culture, urineOrdered By: Elio Ruiz on 02-13-2023 Bacteria identified Cx Nom (U) Escherichia coli [facility] Ketones Test strip Ql (U)Ord ered By: Breanne Ruiz on 02-13-2023 Ketones Ql (U) 5 mg/dl Negative [facility] Nitrite Test strip Ql (U)Ord ered By: Breanne Ruiz on 02-13-2023 Nitrite Ql (U) Positive Negative [facility] Protein Test strip Ql (U)Ord ered By: Breanne Ruiz on 02-13-2023 Protein Ql (U) 30 mg/dl Negative [facility] Urine blood detectionOrdered By: Breanne Ruiz on 02-13-2023 RBC Ql (U) 250 /ul Negative [facility] Urine clarityOrdered By: Prashant Ruiz on 02-13-2023 Clarity (U) Cloudy Clear [facility] Urine color determinationOrd ered By: Breanne Ruiz on 02-13-2023 Color (U) Brown Yellow [facility] Urine glucose detectionOrder ed By: Breanne Ruiz on 02-13-2023 Glucose Ql (U) Normal mg/dl Normal [facility] Urine leukocyte esterase det ection by dipstickOrdered By: Breanne Ruiz on 02-13-2023 Leukocyte esterase Test strip Ql (U) 25 /ul Negative [facility] Urine pHOrdered By: Bhupendra Ruiz on 02-13-2023 pH (U) 5.0 [pH] 5.0 - 8.0 [facility] Urine specific gravity measu rementOrdered By: Breanne Ruiz on 02-13-2023 Specific gravity (U) [Rel density] 1.025 1.002-1.030 [facility] Urobilinogen Auto test strip Ql (U)Ordered By: Breanne Ruiz on 02-13-2023 Urobilinogen Ql (U) 1 mg/dl Normal [facility] Absolute lymphocyte countOrd ered By: Breanne Ruiz on 02-07-2023 Lymphocytes Auto (Unsp spec) [#/Vol] 0.94 10*3/uL 0.83-4.51 [facility] Basophil percentageOrdered B y: Breanne Ruiz on 02-07-2023 Basophils/100 WBC (Bld) 1.1 % 0-1 [facility] Chloride [Moles/Vol] 110 mmol/L 98-107 [facility] Eosinophils/100 WBC (Bld) 5.5 % 0-5 [facility] Glucose [Mass/Vol] 160 mg/dL 74-106 [facility] Comment on above: Fasting Glucose resu lt greater than or equal to 126 mg/dL suggests DIABETES MELLITUS per A.D.A. criteria. Neutrophils (Bld) [#/Vol] 6.3 10*3/uL 2.0-7.7 [facility] Neutrophils/100 WBC (Bld) 70.8 % 47-70 [facility] Potassium [Moles/Vol] 3.9 mmol/L 3.5-5.1 [facility] Sodium [Moles/Vol] 141 mmol/L 136-145 [facility] WBC (Bld) [#/Vol] 9.0 10*3/uL 4.4-11.0 [facility] Blood erythrocytes count (nu mber/volume)Ordered By: Breanne Ruiz on 02-07-2023 RBC (Bld) [#/Vol] 4.98 10*6/uL 4.2-5.4 [facility] Blood hemoglobin measurement (mass/volume)Ordered By: Breanne Ruiz on 02-07-2023 Hemoglobin (Bld) [Mass/Vol] 13.3 g/dL 12.0-15.0 [facility] Blood lymphocytes/100 leukoc ytesOrdered By: Breanne Ruiz on 02-07-2023 Lymphocytes/100 WBC (Bld) 10.5 % 19-41 [facility] Blood monocytes/100 leukocyt esOrdered By: Breanne Ruiz on 02-07-2023 Monocytes/100 WBC (Bld) 11.1 % 0-10 [facility] Blood platelet mean volumeOr dered By: Breanne Ruiz on 02-07-2023 Platelet mean volume (Bld) [Entitic vol] 9.0 fL 6.2-12.0 [facility] Determination of erythrocyte mean corpuscular volume (MCV)Ordered By: Breanne Ruiz on 02-07-2023 MCV (RBC) [Entitic vol] 88.8 fL 81-99 [facility] Hematocrit Auto (Bld) [Volum e fraction]Ordered By: Breanne Ruiz on 02-07-2023 Hematocrit (Bld) [Volume fraction] 44.2 % 37-47 [facility] Laboratory - Chemistry and C hemistry - challengeOrdered By: Breanne Ruiz on 02-07-2023 CO2 [Moles/Vol] 24.0 mmol/L 21.0-32.0 [facility] Urea nitrogen/Creatinine [Mass ratio] 37.3 mg/mg 10-20 [facility] Laboratory - Hematology and Cell countsOrdered By: Breanne Ruiz on 02-07-2023 Erythrocyte distribution width (RBC) [Entitic vol] 47.9 fL 35.1-43.9 [facility] Erythrocyte distribution width (RBC) [Ratio] 14.6 % 11.6-14.6 [facility] Immature granulocytes/100 WBC (Bld) 1.000 % 0.0-0.9 [facility] Comment on above: IG% - Immature Granu locytes (promyelocytes, myelocytes and metamyelocytes) > 1% indicates that a LEFT SHIFT is Present. MCH (RBC) [Entitic mass] 26.7 pg 27.0-32.0 [facility] Nucleated RBC/100 WBC (Bld) [Ratio] 0 % 0-5 [facility] MCHC Auto (RBC) [Mass/Vol]Or dered By: Breanne Ruiz on 02-07-2023 MCHC (RBC) [Mass/Vol] 30.1 g/dL 32-36 [facility] No Panel InformationOrdered By: Breanne Ruiz on 02-07-2023 Estimated GFR (MDRD) Amer 132 mL/min >60 [facility] Comment on above: GFR Calc Estimated GFR (MDRD) Non-Af Amer 109 mL/min >60 [facility] Comment on above: Non- GFR Calc Platelets bldOrdered By: Prashant Ruiz on 02-07-2023 Platelets (Bld) [#/Vol] 478 10*3/uL 150-450 [facility] Serum or plasma calcium jj urement (mass/volume)Ordered By: Breanne Ruiz on 02-07-2023 Calcium [Mass/Vol] 8.9 mg/dL 8.5-10.1 [facility] Serum or plasma creatinine m easurement (mass/volume)Ordered By: Breanne Ruiz on 02-07-2023 Creatinine [Mass/Vol] 0.59 mg/dL 0.55-1.02 [facility] Comment on above: The validity of the calculated GFR & GFRAA in patients over 70 years has not been determined. Clinical correlation is essential. Serum or plasma urea nitroge n measurement (mass/volume)Ordered By: Breanne Ruiz on 02-07-2023 Urea nitrogen [Mass/Vol] 22 mg/dL 7-18 [facility] Thin prep Papanicolaou smear with manual screeningOrdered By: [facility] on 02-07-2023 Thin prep Papanicolaou smear with manual screening 7 5-15 [facility] Absolute lymphocyte countOrd ered By: Britney Worthington on 01-24-2023 Lymphocytes Auto (Unsp spec) [#/Vol] 0.89 10*3/uL 0.83-4.51 [facility] Basophil percentageOrdered B y: Britney Worthington on 01-24-2023 Basophils/100 WBC (Bld) 1.1 % 0-1 [facility] Chloride [Moles/Vol] 108 mmol/L 98-107 [facility] Eosinophils/100 WBC (Bld) 5.0 % 0-5 [facility] Glucose [Mass/Vol] 141 mg/dL 74-106 [facility] Comment on above: Fasting Glucose resu lt greater than or equal to 126 mg/dL suggests DIABETES MELLITUS per A.D.A. criteria. Neutrophils (Bld) [#/Vol] 5.9 10*3/uL 2.0-7.7 [facility] Neutrophils/100 WBC (Bld) 71.4 % 47-70 [facility] Potassium [Moles/Vol] 3.9 mmol/L 3.5-5.1 [facility] Sodium [Moles/Vol] 140 mmol/L 136-145 [facility] WBC (Bld) [#/Vol] 8.2 10*3/uL 4.4-11.0 [facility] Blood erythrocytes count (nu mber/volume)Ordered By: Britney Worthington on 01-24-2023 RBC (Bld) [#/Vol] 4.81 10*6/uL 4.2-5.4 [facility] Blood hemoglobin measurement (mass/volume)Ordered By: Britney Worthington on 01-24-2023 Hemoglobin (Bld) [Mass/Vol] 12.8 g/dL 12.0-15.0 [facility] Blood lymphocytes/100 leukoc ytesOrdered By: Britney Worthington on 01-24-2023 Lymphocytes/100 WBC (Bld) 10.9 % 19-41 [facility] Blood monocytes/100 leukocyt esOrdered By: Britney Worthington on 01-24-2023 Monocytes/100 WBC (Bld) 11.0 % 0-10 [facility] Blood platelet mean volumeOr dered By: Britney Worthington on 01-24-2023 Platelet mean volume (Bld) [Entitic vol] 9.0 fL 6.2-12.0 [facility] Determination of erythrocyte mean corpuscular volume (MCV)Ordered By: Britney Worthington on 01-24-2023 MCV (RBC) [Entitic vol] 88.8 fL 81-99 [facility] Hematocrit Auto (Bld) [Volum e fraction]Ordered By: Britney Worthington on 01-24-2023 Hematocrit (Bld) [Volume fraction] 42.7 % 37-47 [facility] Laboratory - Chemistry and C hemistry - challengeOrdered By: Britney Worthington on 01-24-2023 CO2 [Moles/Vol] 25.0 mmol/L 21.0-32.0 [facility] Urea nitrogen/Creatinine [Mass ratio] 33.7 mg/mg 10-20 [facility] Laboratory - Hematology and Cell countsOrdered By: Britney Worthington on 01-24-2023 Erythrocyte distribution width (RBC) [Entitic vol] 48.3 fL 35.1-43.9 [facility] Erythrocyte distribution width (RBC) [Ratio] 14.8 % 11.6-14.6 [facility] Immature granulocytes/100 WBC (Bld) 0.600 % 0.0-0.9 [facility] Comment on above: IG% - Immature Granu locytes (promyelocytes, myelocytes and metamyelocytes) > 1% indicates that a LEFT SHIFT is Present. MCH (RBC) [Entitic mass] 26.6 pg 27.0-32.0 [facility] Nucleated RBC/100 WBC (Bld) [Ratio] 0 % 0-5 [facility] MCHC Auto (RBC) [Mass/Vol]Or dered By: Britney Worthington on 01-24-2023 MCHC (RBC) [Mass/Vol] 30.0 g/dL 32-36 [facility] No Panel InformationOrdered By: Britney Worthington on 01-24-2023 Estimated GFR (MDRD) Amer 131 mL/min >60 [facility] Comment on above: GFR Calc Estimated GFR (MDRD) Non-Af Amer 108 mL/min >60 [facility] Comment on above: Non- GFR Calc Platelets bldOrdered By: Phillip Worthington on 01-24-2023 Platelets (Bld) [#/Vol] 479 10*3/uL 150-450 [facility] Serum or plasma calcium jj urement (mass/volume)Ordered By: Britney Worthington on 01-24-2023 Calcium [Mass/Vol] 8.9 mg/dL 8.5-10.1 [facility] Serum or plasma creatinine m easurement (mass/volume)Ordered By: Britney Worthington on 01-24-2023 Creatinine [Mass/Vol] 0.59 mg/dL 0.55-1.02 [facility] Comment on above: The validity of the calculated GFR & GFRAA in patients over 70 years has not been determined. Clinical correlation is essential. Serum or plasma urea nitroge n measurement (mass/volume)Ordered By: Britney Worthington on 01-24-2023 Urea nitrogen [Mass/Vol] 20 mg/dL 7-18 [facility] Thin prep Papanicolaou smear with manual screeningOrdered By: Britney Worthington on 01-24-2023 Thin prep Papanicolaou smear with manual screening 7 5-15 [facility] Absolute lymphocyte countOrd ered By: Breanne Ruiz on 01-10-2023 Lymphocytes Auto (Unsp spec) [#/Vol] 0.84 10*3/uL 0.83-4.51 [facility] Basophil percentageOrdered B y: Breanne Ruiz on 01-10-2023 Basophils/100 WBC (Bld) 1.0 % 0-1 [facility] Chloride [Moles/Vol] 109 mmol/L 98-107 [facility] Eosinophils/100 WBC (Bld) 4.6 % 0-5 [facility] Glucose [Mass/Vol] 147 mg/dL 74-106 [facility] Comment on above: Fasting Glucose resu lt greater than or equal to 126 mg/dL suggests DIABETES MELLITUS per A.D.A. criteria. Neutrophils (Bld) [#/Vol] 7.2 10*3/uL 2.0-7.7 [facility] Neutrophils/100 WBC (Bld) 74.5 % 47-70 [facility] Potassium [Moles/Vol] 3.9 mmol/L 3.5-5.1 [facility] Sodium [Moles/Vol] 140 mmol/L 136-145 [facility] WBC (Bld) [#/Vol] 9.7 10*3/uL 4.4-11.0 [facility] Blood erythrocytes count (nu mber/volume)Ordered By: Breanne Ruiz on 01-10-2023 RBC (Bld) [#/Vol] 4.98 10*6/uL 4.2-5.4 [facility] Blood hemoglobin measurement (mass/volume)Ordered By: Breanne Ruiz on 01-10-2023 Hemoglobin (Bld) [Mass/Vol] 13.4 g/dL 12.0-15.0 [facility] Blood lymphocytes/100 leukoc ytesOrdered By: Breanne Ruiz on 01-10-2023 Lymphocytes/100 WBC (Bld) 8.7 % 19-41 [facility] Blood monocytes/100 leukocyt esOrdered By: Breanne Ruiz on 01-10-2023 Monocytes/100 WBC (Bld) 10.3 % 0-10 [facility] Blood platelet mean volumeOr dered By: Breanne Ruiz on 01-10-2023 Platelet mean volume (Bld) [Entitic vol] 8.8 fL 6.2-12.0 [facility] Determination of erythrocyte mean corpuscular volume (MCV)Ordered By: Breanne Ruiz on 01-10-2023 MCV (RBC) [Entitic vol] 86.5 fL 81-99 [facility] Hematocrit Auto (Bld) [Volum e fraction]Ordered By: Breanne Ruiz on 01-10-2023 Hematocrit (Bld) [Volume fraction] 43.1 % 37-47 [facility] Laboratory - Chemistry and C hemistry - challengeOrdered By: adalbertoolallachetan Ruiz on 01-10-2023 CO2 [Moles/Vol] 24.0 mmol/L 21.0-32.0 [facility] Urea nitrogen/Creatinine [Mass ratio] 36.1 mg/mg 10-20 [facility] Laboratory - Hematology and Cell countsOrdered By: Abbieolallachetan Ruiz on 01-10-2023 Erythrocyte distribution width (RBC) [Entitic vol] 48.4 fL 35.1-43.9 [facility] Erythrocyte distribution width (RBC) [Ratio] 15.3 % 11.6-14.6 [facility] Immature granulocytes/100 WBC (Bld) 0.900 % 0.0-0.9 [facility] Comment on above: IG% - Immature Granu locytes (promyelocytes, myelocytes and metamyelocytes) > 1% indicates that a LEFT SHIFT is Present. MCH (RBC) [Entitic mass] 26.9 pg 27.0-32.0 [facility] Nucleated RBC/100 WBC (Bld) [Ratio] 0 % 0-5 [facility] MCHC Auto (RBC) [Mass/Vol]Or dered By: Breanne Ruiz on 01-10-2023 MCHC (RBC) [Mass/Vol] 31.1 g/dL 32-36 [facility] No Panel InformationOrdered By: Breanne Ruiz on 01-10-2023 Estimated GFR (MDRD) Amer 121 mL/min >60 [facility] Comment on above: GFR Calc Estimated GFR (MDRD) Non-Af Amer 100 mL/min >60 [facility] Comment on above: Non- GFR Calc Platelets bldOrdered By: Prashant raphaelchetan Ruiz on 01-10-2023 Platelets (Bld) [#/Vol] 513 10*3/uL 150-450 [facility] Serum or plasma calcium jj urement (mass/volume)Ordered By: Breanne Ruiz on 01-10-2023 Calcium [Mass/Vol] 9.2 mg/dL 8.5-10.1 [facility] Serum or plasma creatinine m easurement (mass/volume)Ordered By: Breanne Ruiz on 01-10-2023 Creatinine [Mass/Vol] 0.64 mg/dL 0.55-1.02 [facility] Comment on above: The validity of the calculated GFR & GFRAA in patients over 70 years has not been determined. Clinical correlation is essential. Serum or plasma urea nitroge n measurement (mass/volume)Ordered By: Breanne Ruiz on 01-10-2023 Urea nitrogen [Mass/Vol] 23 mg/dL 7-18 [facility] Thin prep Papanicolaou smear with manual screeningOrdered By: Breanne Ruiz on 01-10-2023 Thin prep Papanicolaou smear with manual screening 7 5-15 [facility] Absolute lymphocyte countOrd ered By: Breanne Ruiz on 12-27-2022 Lymphocytes Auto (Unsp spec) [#/Vol] 0.84 10*3/uL 0.83-4.51 [facility] Basophil percentageOrdered B y: Breanne Ruiz on 12-27-2022 Basophils/100 WBC (Bld) 1.3 % 0-1 [facility] Chloride [Moles/Vol] 108 mmol/L 98-107 [facility] Eosinophils/100 WBC (Bld) 4.3 % 0-5 [facility] Glucose [Mass/Vol] 178 mg/dL 74-106 [facility] Comment on above: Fasting Glucose resu lt greater than or equal to 126 mg/dL suggests DIABETES MELLITUS per A.D.A. criteria. Neutrophils (Bld) [#/Vol] 6.8 10*3/uL 2.0-7.7 [facility] Neutrophils/100 WBC (Bld) 73.8 % 47-70 [facility] Potassium [Moles/Vol] 3.9 mmol/L 3.5-5.1 [facility] Sodium [Moles/Vol] 138 mmol/L 136-145 [facility] WBC (Bld) [#/Vol] 9.3 10*3/uL 4.4-11.0 [facility] Blood erythrocytes count (nu mber/volume)Ordered By: Breanne Ruiz on 12-27-2022 RBC (Bld) [#/Vol] 4.96 10*6/uL 4.2-5.4 [facility] Blood hemoglobin measurement (mass/volume)Ordered By: Breanne Ruiz on 12-27-2022 Hemoglobin (Bld) [Mass/Vol] 13.1 g/dL 12.0-15.0 [facility] Blood lymphocytes/100 leukoc ytesOrdered By: Breanne Ruiz on 12-27-2022 Lymphocytes/100 WBC (Bld) 9.1 % 19-41 [facility] Blood monocytes/100 leukocyt esOrdered By: Breanne Ruiz on 12-27-2022 Monocytes/100 WBC (Bld) 10.9 % 0-10 [facility] Blood platelet mean volumeOr dered By: Breanne Ruiz on 12-27-2022 Platelet mean volume (Bld) [Entitic vol] 8.9 fL 6.2-12.0 [facility] Determination of erythrocyte mean corpuscular volume (MCV)Ordered By: Breanne Ruiz on 12-27-2022 MCV (RBC) [Entitic vol] 88.9 fL 81-99 [facility] Hematocrit Auto (Bld) [Volum e fraction]Ordered By: Breanne Ruiz on 12-27-2022 Hematocrit (Bld) [Volume fraction] 44.1 % 37-47 [facility] Laboratory - Chemistry and C hemistry - challengeOrdered By: Breanne Ruiz on 12-27-2022 CO2 [Moles/Vol] 24.0 mmol/L 21.0-32.0 [facility] Urea nitrogen/Creatinine [Mass ratio] 32.3 mg/mg 10-20 [facility] Laboratory - Hematology and Cell countsOrdered By: Breanne Ruiz on 12-27-2022 Erythrocyte distribution width (RBC) [Entitic vol] 50.8 fL 35.1-43.9 [facility] Erythrocyte distribution width (RBC) [Ratio] 15.7 % 11.6-14.6 [facility] Immature granulocytes/100 WBC (Bld) 0.600 % 0.0-0.9 [facility] Comment on above: IG% - Immature Granu locytes (promyelocytes, myelocytes and metamyelocytes) > 1% indicates that a LEFT SHIFT is Present. MCH (RBC) [Entitic mass] 26.4 pg 27.0-32.0 [facility] Nucleated RBC/100 WBC (Bld) [Ratio] 0 % 0-5 [facility] MCHC Auto (RBC) [Mass/Vol]Or dered By: Breanne Ruiz on 12-27-2022 MCHC (RBC) [Mass/Vol] 29.7 g/dL 32-36 [facility] No Panel InformationOrdered By: Breanne Ruiz on 12-27-2022 Estimated GFR (MDRD) Amer 101 mL/min >60 [facility] Comment on above: GFR Calc Estimated GFR (MDRD) Non-Af Amer 84 mL/min >60 [facility] Comment on above: Non- GFR Calc Platelets bldOrdered By: Prashant Ruiz on 12-27-2022 Platelets (Bld) [#/Vol] 491 10*3/uL 150-450 [facility] Serum or plasma calcium jj urement (mass/volume)Ordered By: Breanne Ruiz on 12-27-2022 Calcium [Mass/Vol] 9.3 mg/dL 8.5-10.1 [facility] Serum or plasma creatinine m easurement (mass/volume)Ordered By: Breanne Ruiz on 12-27-2022 Creatinine [Mass/Vol] 0.74 mg/dL 0.55-1.02 [facility] Comment on above: The validity of the calculated GFR & GFRAA in patients over 70 years has not been determined. Clinical correlation is essential. Serum or plasma urea nitroge n measurement (mass/volume)Ordered By: Breanne Ruiz on 12-27-2022 Urea nitrogen [Mass/Vol] 24 mg/dL 7-18 [facility] Thin prep Papanicolaou smear with manual screeningOrdered By: vannessa Ruiz on 12-27-2022 Thin prep Papanicolaou smear with manual screening 6 5-15 [facility] Absolute lymphocyte countOrd ered By: vannessa Ruiz on 12-13-2022 Lymphocytes Auto (Unsp spec) [#/Vol] 0.84 10*3/uL 0.83-4.51 [facility] Basophil percentageOrdered B y: Breanne Ruiz on 12-13-2022 Basophils/100 WBC (Bld) 1.2 % 0-1 [facility] Chloride [Moles/Vol] 108 mmol/L 98-107 [facility] Eosinophils/100 WBC (Bld) 4.5 % 0-5 [facility] Glucose [Mass/Vol] 150 mg/dL 74-106 [facility] Comment on above: Fasting Glucose resu lt greater than or equal to 126 mg/dL suggests DIABETES MELLITUS per A.D.A. criteria. Neutrophils (Bld) [#/Vol] 5.4 10*3/uL 2.0-7.7 [facility] Neutrophils/100 WBC (Bld) 71.5 % 47-70 [facility] Potassium [Moles/Vol] 3.8 mmol/L 3.5-5.1 [facility] Sodium [Moles/Vol] 139 mmol/L 136-145 [facility] WBC (Bld) [#/Vol] 7.5 10*3/uL 4.4-11.0 [facility] Blood erythrocytes count (nu mber/volume)Ordered By: Breanne Ruiz on 12-13-2022 RBC (Bld) [#/Vol] 4.96 10*6/uL 4.2-5.4 [facility] Blood hemoglobin measurement (mass/volume)Ordered By: Breanne Ruiz on 12-13-2022 Hemoglobin (Bld) [Mass/Vol] 13.2 g/dL 12.0-15.0 [facility] Blood lymphocytes/100 leukoc ytesOrdered By: Breanne Ruiz on 12-13-2022 Lymphocytes/100 WBC (Bld) 11.2 % 19-41 [facility] Blood monocytes/100 leukocyt esOrdered By: adalbertoolallachetan Ruiz on 12-13-2022 Monocytes/100 WBC (Bld) 10.4 % 0-10 [facility] Blood platelet mean volumeOr dered By: Breanne Ruiz on 12-13-2022 Platelet mean volume (Bld) [Entitic vol] 8.7 fL 6.2-12.0 [facility] Determination of erythrocyte mean corpuscular volume (MCV)Ordered By: Abbieolallachetan Ruiz on 12-13-2022 MCV (RBC) [Entitic vol] 87.1 fL 81-99 [facility] Hematocrit Auto (Bld) [Volum e fraction]Ordered By: Breanne Ruiz on 12-13-2022 Hematocrit (Bld) [Volume fraction] 43.2 % 37-47 [facility] Laboratory - Chemistry and C hemistry - challengeOrdered By: [facility] 12-[facility]22 CO2 [Moles/Vol] 26.0 mmol/L 21.0-32.0 [facility] Urea nitrogen/Creatinine [Mass ratio] 31.7 mg/mg 10-20 [facility] Laboratory - Hematology and Cell countsOrdered By: Breanne Ruiz on 12-13-2022 Erythrocyte distribution width (RBC) [Entitic vol] 49.9 fL 35.1-43.9 [facility] Erythrocyte distribution width (RBC) [Ratio] 15.9 % 11.6-14.6 [facility] Immature granulocytes/100 WBC (Bld) 1.200 % 0.0-0.9 [facility] Comment on above: IG% - Immature Granu locytes (promyelocytes, myelocytes and metamyelocytes) > 1% indicates that a LEFT SHIFT is Present. MCH (RBC) [Entitic mass] 26.6 pg 27.0-32.0 [facility] Nucleated RBC/100 WBC (Bld) [Ratio] 0 % 0-5 [facility] MCHC Auto (RBC) [Mass/Vol]Or dered By: Breanne Ruiz on 12-13-2022 MCHC (RBC) [Mass/Vol] 30.6 g/dL 32-36 [facility] No Panel InformationOrdered By: Breanne Ruiz on 12-13-2022 Estimated GFR (MDRD) Amer 122 mL/min >60 [facility] Comment on above: GFR Calc Estimated GFR (MDRD) Non-Af Amer 101 mL/min >60 [facility] Comment on above: Non- GFR Calc Platelets bldOrdered By: Prashant Ruiz on 12-13-2022 Platelets (Bld) [#/Vol] 502 10*3/uL 150-450 [facility] Serum or plasma calcium jj urement (mass/volume)Ordered By: Breanne Ruiz on 12-13-2022 Calcium [Mass/Vol] 9.2 mg/dL 8.5-10.1 [facility] Serum or plasma creatinine m easurement (mass/volume)Ordered By: Breanne Ruiz on 12-13-2022 Creatinine [Mass/Vol] 0.63 mg/dL 0.55-1.02 [facility] Comment on above: The validity of the calculated GFR & GFRAA in patients over 70 years has not been determined. Clinical correlation is essential. Serum or plasma urea nitroge n measurement (mass/volume)Ordered By: Breanne Ruiz on 12-13-2022 Urea nitrogen [Mass/Vol] 20 mg/dL 7-18 [facility] Thin prep Papanicolaou smear with manual screeningOrdered By: Breanne Ruiz on 12-13-2022 Thin prep Papanicolaou smear with manual screening 5 5-15 [facility] Absolute lymphocyte countOrd ered By: Breanne Ruiz on 11-29-2022 Lymphocytes Auto (Unsp spec) [#/Vol] 0.94 10*3/uL 0.83-4.51 [facility] Basophil percentageOrdered B y: Breanne Ruiz on 11-29-2022 Basophils/100 WBC (Bld) 1.1 % 0-1 [facility] Chloride [Moles/Vol] 106 mmol/L 98-107 [facility] Eosinophils/100 WBC (Bld) 5.0 % 0-5 [facility] Glucose [Mass/Vol] 137 mg/dL 74-106 [facility] Comment on above: Fasting Glucose resu lt greater than or equal to 126 mg/dL suggests DIABETES MELLITUS per A.D.A. criteria. Neutrophils (Bld) [#/Vol] 6.1 10*3/uL 2.0-7.7 [facility] Neutrophils/100 WBC (Bld) 71.9 % 47-70 [facility] Potassium [Moles/Vol] 3.9 mmol/L 3.5-5.1 [facility] Sodium [Moles/Vol] 138 mmol/L 136-145 [facility] WBC (Bld) [#/Vol] 8.4 10*3/uL 4.4-11.0 [facility] Blood erythrocytes count (nu mber/volume)Ordered By: Breanne Ruiz on 11-29-2022 RBC (Bld) [#/Vol] 5.05 10*6/uL 4.2-5.4 [facility] Blood hemoglobin measurement (mass/volume)Ordered By: Breanne Ruiz on 11-29-2022 Hemoglobin (Bld) [Mass/Vol] 13.5 g/dL 12.0-15.0 [facility] Blood lymphocytes/100 leukoc ytesOrdered By: Breanne Ruiz on 11-29-2022 Lymphocytes/100 WBC (Bld) 11.1 % 19-41 [facility] Blood monocytes/100 leukocyt esOrdered By: Breanne Ruiz on 11-29-2022 Monocytes/100 WBC (Bld) 10.3 % 0-10 [facility] Blood platelet mean volumeOr dered By: Breanne Ruiz on 11-29-2022 Platelet mean volume (Bld) [Entitic vol] 8.8 fL 6.2-12.0 [facility] Determination of erythrocyte mean corpuscular volume (MCV)Ordered By: Breanne Ruiz on 11-29-2022 MCV (RBC) [Entitic vol] 87.5 fL 81-99 [facility] Hematocrit Auto (Bld) [Volum e fraction]Ordered By: Breanne Ruiz on 11-29-2022 Hematocrit (Bld) [Volume fraction] 44.2 % 37-47 [facility] Laboratory - Chemistry and C hemistry - challengeOrdered By: Breanne Ruiz on 11-29-2022 CO2 [Moles/Vol] 23.0 mmol/L 21.0-32.0 [facility] Urea nitrogen/Creatinine [Mass ratio] 26.3 mg/mg 10-20 [facility] Laboratory - Hematology and Cell countsOrdered By: Breanne Ruiz on 11-29-2022 Erythrocyte distribution width (RBC) [Entitic vol] 49.9 fL 35.1-43.9 [facility] Erythrocyte distribution width (RBC) [Ratio] 15.7 % 11.6-14.6 [facility] Immature granulocytes/100 WBC (Bld) 0.600 % 0.0-0.9 [facility] Comment on above: IG% - Immature Granu locytes (promyelocytes, myelocytes and metamyelocytes) > 1% indicates that a LEFT SHIFT is Present. MCH (RBC) [Entitic mass] 26.7 pg 27.0-32.0 [facility] Nucleated RBC/100 WBC (Bld) [Ratio] 0 % 0-5 [facility] MCHC Auto (RBC) [Mass/Vol]Or dered By: Breanne Ruiz on 11-29-2022 MCHC (RBC) [Mass/Vol] 30.5 g/dL 32-36 [facility] No Panel InformationOrdered By: Breanne Ruiz on 11-29-2022 Estimated GFR (MDRD) Amer 104 mL/min >60 [facility] Comment on above: GFR Calc Estimated GFR (MDRD) Non-Af Amer 86 mL/min >60 [facility] Comment on above: Non- GFR Calc Platelets bldOrdered By: Prashant Ruiz on 11-29-2022 Platelets (Bld) [#/Vol] 479 10*3/uL 150-450 [facility] Serum or plasma calcium jj urement (mass/volume)Ordered By: Breanne Ruiz on 11-29-2022 Calcium [Mass/Vol] 9.4 mg/dL 8.5-10.1 [facility] Serum or plasma creatinine m easurement (mass/volume)Ordered By: Breanne Ruiz on 11-29-2022 Creatinine [Mass/Vol] 0.72 mg/dL 0.55-1.02 [facility] Comment on above: The validity of the calculated GFR & GFRAA in patients over 70 years has not been determined. Clinical correlation is essential. Serum or plasma urea nitroge n measurement (mass/volume)Ordered By: Breanne Ruiz on 11-29-2022 Urea nitrogen [Mass/Vol] 19 mg/dL 7-18 [facility] Thin prep Papanicolaou smear with manual screeningOrdered By: [facility] on 11-29-2022 Thin prep Papanicolaou smear with manual screening 9 5-15 [facility] Absolute lymphocyte countOrd ered By: Asad Jamison on 11-15-2022 Lymphocytes Auto (Unsp spec) [#/Vol] 1.08 10*3/uL 0.83-4.51 [facility] Basophil percentageOrdered B y: Asad Jamison on 11-15-2022 Basophils/100 WBC (Bld) 0.9 % 0-1 [facility] Chloride [Moles/Vol] 106 mmol/L 98-107 [facility] Eosinophils/100 WBC (Bld) 2.2 % 0-5 [facility] Glucose [Mass/Vol] 120 mg/dL 74-106 [facility] Comment on above: Fasting Glucose resu lt from 100 to 125 mg/dL suggests IMPAIRED HOMEOSTASIS per A.D.A. criteria. Neutrophils (Bld) [#/Vol] 8.1 10*3/uL 2.0-7.7 [facility] Neutrophils/100 WBC (Bld) 75.6 % 47-70 [facility] Potassium [Moles/Vol] 4.1 mmol/L 3.5-5.1 [facility] Sodium [Moles/Vol] 141 mmol/L 136-145 [facility] WBC (Bld) [#/Vol] 10.7 10*3/uL 4.4-11.0 [facility] Blood erythrocytes count (nu mber/volume)Ordered By: Asad Jamison on 11-15-2022 RBC (Bld) [#/Vol] 5.54 10*6/uL 4.2-5.4 [facility] Blood hemoglobin measurement (mass/volume)Ordered By: Asad Jamison on 11-15-2022 Hemoglobin (Bld) [Mass/Vol] 14.8 g/dL 12.0-15.0 [facility] Blood lymphocytes/100 leukoc ytesOrdered By: Asad Jamison on 11-15-2022 Lymphocytes/100 WBC (Bld) 10.1 % 19-41 [facility] Blood monocytes/100 leukocyt esOrdered By: Asad Jamison on 11-15-2022 Monocytes/100 WBC (Bld) 9.6 % 0-10 [facility] Blood platelet mean volumeOr dered By: Asad Jamison on 11-15-2022 Platelet mean volume (Bld) [Entitic vol] 9.1 fL 6.2-12.0 [facility] Determination of erythrocyte mean corpuscular volume (MCV)Ordered By: Asad Jamison on 11-15-2022 MCV (RBC) [Entitic vol] 87.9 fL 81-99 [facility] Hematocrit Auto (Bld) [Volum e fraction]Ordered By: Asad Jamison on 11-15-2022 Hematocrit (Bld) [Volume fraction] 48.7 % 37-47 [facility] Laboratory - Chemistry and C hemistry - challengeOrdered By: Asad Jamison on 11-15-2022 CO2 [Moles/Vol] 27.0 mmol/L 21.0-32.0 [facility] Urea nitrogen/Creatinine [Mass ratio] 35.6 mg/mg 10-20 [facility] Laboratory - Hematology and Cell countsOrdered By: Asad Jamison on 11-15-2022 Erythrocyte distribution width (RBC) [Entitic vol] 50.8 fL 35.1-43.9 [facility] Erythrocyte distribution width (RBC) [Ratio] 15.9 % 11.6-14.6 [facility] Immature granulocytes/100 WBC (Bld) 1.600 % 0.0-0.9 [facility] Comment on above: IG% - Immature Granu locytes (promyelocytes, myelocytes and metamyelocytes) > 1% indicates that a LEFT SHIFT is Present. MCH (RBC) [Entitic mass] 26.7 pg 27.0-32.0 [facility] Nucleated RBC/100 WBC (Bld) [Ratio] 0 % 0-5 [facility] MCHC Auto (RBC) [Mass/Vol]Or dered By: Asad Jamison on 11-15-2022 MCHC (RBC) [Mass/Vol] 30.4 g/dL 32-36 [facility] No Panel InformationOrdered By: Asad Jamison on 11-15-2022 Estimated GFR (MDRD) Amer 99 mL/min >60 [facility] Comment on above: GFR Calc Estimated GFR (MDRD) Non-Af Amer 81 mL/min >60 [facility] Comment on above: Non- GFR Calc Platelets bldOrdered By: Gonzales Jamison on 11-15-2022 Platelets (Bld) [#/Vol] 540 10*3/uL 150-450 [facility] Serum or plasma calcium jj urement (mass/volume)Ordered By: Asad Jamison on 11-15-2022 Calcium [Mass/Vol] 9.5 mg/dL 8.5-10.1 [facility] Serum or plasma creatinine m easurement (mass/volume)Ordered By: Asad Jamison on 11-15-2022 Creatinine [Mass/Vol] 0.76 mg/dL 0.55-1.02 [facility] Comment on above: The validity of the calculated GFR & GFRAA in patients over 70 years has not been determined. Clinical correlation is essential. Serum or plasma urea nitroge n measurement (mass/volume)Ordered By: Asad Jamison on 11-15-2022 Urea nitrogen [Mass/Vol] 27 mg/dL 7-18 [facility] Thin prep Papanicolaou smear with manual screeningOrdered By: Asad Jamison on 11-15-2022 Thin prep Papanicolaou smear with manual screening 8 5-15 [facility] Absolute lymphocyte countOrd ered By: Asad Jamison on 11-01-2022 Lymphocytes Auto (Unsp spec) [#/Vol] 0.81 10*3/uL 0.83-4.51 [facility] Basophil percentageOrdered B y: Asad Jamison on 11-01-2022 Basophils/100 WBC (Bld) 1.0 % 0-1 [facility] Chloride [Moles/Vol] 107 mmol/L 98-107 [facility] Eosinophils/100 WBC (Bld) 4.8 % 0-5 [facility] Glucose [Mass/Vol] 135 mg/dL 74-106 [facility] Comment on above: Fasting Glucose resu lt greater than or equal to 126 mg/dL suggests DIABETES MELLITUS per A.D.A. criteria. Neutrophils (Bld) [#/Vol] 5.9 10*3/uL 2.0-7.7 [facility] Neutrophils/100 WBC (Bld) 73.2 % 47-70 [facility] Potassium [Moles/Vol] 3.9 mmol/L 3.5-5.1 [facility] Sodium [Moles/Vol] 141 mmol/L 136-145 [facility] WBC (Bld) [#/Vol] 8.1 10*3/uL 4.4-11.0 [facility] Blood erythrocytes count (nu mber/volume)Ordered By: Asad Jamison on 11-01-2022 RBC (Bld) [#/Vol] 5.16 10*6/uL 4.2-5.4 [facility] Blood hemoglobin measurement (mass/volume)Ordered By: Asad Jamison on 11-01-2022 Hemoglobin (Bld) [Mass/Vol] 13.3 g/dL 12.0-15.0 [facility] Blood lymphocytes/100 leukoc ytesOrdered By: Asad Jamison on 11-01-2022 Lymphocytes/100 WBC (Bld) 10.0 % 19-41 [facility] Blood monocytes/100 leukocyt esOrdered By: Asad Jamison on 11-01-2022 Monocytes/100 WBC (Bld) 9.9 % 0-10 [facility] Blood platelet mean volumeOr dered By: Asad Jamison on 11-01-2022 Platelet mean volume (Bld) [Entitic vol] 8.9 fL 6.2-12.0 [facility] Determination of erythrocyte mean corpuscular volume (MCV)Ordered By: Asad Jamison on 11-01-2022 MCV (RBC) [Entitic vol] 87.4 fL 81-99 [facility] Hematocrit Auto (Bld) [Volum e fraction]Ordered By: Asad Jamison on 11-01-2022 Hematocrit (Bld) [Volume fraction] 45.1 % 37-47 [facility] Laboratory - Chemistry and C hemistry - challengeOrdered By: Asad Jamison on 11-01-2022 CO2 [Moles/Vol] 25.0 mmol/L 21.0-32.0 [facility] Urea nitrogen/Creatinine [Mass ratio] 32.7 mg/mg 10-20 [facility] Laboratory - Hematology and Cell countsOrdered By: Asad Jamison on 11-01-2022 Erythrocyte distribution width (RBC) [Entitic vol] 47.9 fL 35.1-43.9 [facility] Erythrocyte distribution width (RBC) [Ratio] 15.1 % 11.6-14.6 [facility] Immature granulocytes/100 WBC (Bld) 1.100 % 0.0-0.9 [facility] Comment on above: IG% - Immature Granu locytes (promyelocytes, myelocytes and metamyelocytes) > 1% indicates that a LEFT SHIFT is Present. MCH (RBC) [Entitic mass] 25.8 pg 27.0-32.0 [facility] Nucleated RBC/100 WBC (Bld) [Ratio] 0 % 0-5 [facility] MCHC Auto (RBC) [Mass/Vol]Or dered By: Asad Jamison on 11-01-2022 MCHC (RBC) [Mass/Vol] 29.5 g/dL 32-36 [facility] No Panel InformationOrdered By: Asad Jamison on 11-01-2022 Estimated GFR (MDRD) Amer 108 mL/min >60 [facility] Comment on above: GFR Calc Estimated GFR (MDRD) Non-Af Amer 89 mL/min >60 [facility] Comment on above: Non- GFR Calc Platelets bldOrdered By: Gonzales Jamison on 11-01-2022 Platelets (Bld) [#/Vol] 467 10*3/uL 150-450 [facility] Serum or plasma calcium jj urement (mass/volume)Ordered By: Asad Jamison on 11-01-2022 Calcium [Mass/Vol] 9.3 mg/dL 8.5-10.1 [facility] Serum or plasma creatinine m easurement (mass/volume)Ordered By: Asad Jamison on 11-01-2022 Creatinine [Mass/Vol] 0.70 mg/dL 0.55-1.02 [facility] Comment on above: The validity of the calculated GFR & GFRAA in patients over 70 years has not been determined. Clinical correlation is essential. Serum or plasma urea nitroge n measurement (mass/volume)Ordered By: Asad Jamison on 11-01-2022 Urea nitrogen [Mass/Vol] 23 mg/dL 7-18 [facility] Thin prep Papanicolaou smear with manual screeningOrdered By: Asad Jamison on 11-01-2022 Thin prep Papanicolaou smear with manual screening 9 5-15 [facility] Absolute lymphocyte countOrd ered By: Asad Jamison on 10-18-2022 Lymphocytes Auto (Unsp spec) [#/Vol] 1.14 10*3/uL 0.83-4.51 [facility] Basophil percentageOrdered B y: Asad Jamison on 10-18-2022 Basophils/100 WBC (Bld) 1.1 % 0-1 [facility] Chloride [Moles/Vol] 110 mmol/L 98-107 [facility] Eosinophils/100 WBC (Bld) 5.0 % 0-5 [facility] Glucose [Mass/Vol] 179 mg/dL 74-106 [facility] Comment on above: Fasting Glucose resu lt greater than or equal to 126 mg/dL suggests DIABETES MELLITUS per A.D.A. criteria. Neutrophils (Bld) [#/Vol] 6.5 10*3/uL 2.0-7.7 [facility] Neutrophils/100 WBC (Bld) 69.3 % 47-70 [facility] Potassium [Moles/Vol] 4.0 mmol/L 3.5-5.1 [facility] Sodium [Moles/Vol] 140 mmol/L 136-145 [facility] WBC (Bld) [#/Vol] 9.4 10*3/uL 4.4-11.0 [facility] Blood erythrocytes count (nu mber/volume)Ordered By: Asad Jamison on 10-18-2022 RBC (Bld) [#/Vol] 5.10 10*6/uL 4.2-5.4 [facility] Blood hemoglobin measurement (mass/volume)Ordered By: Asad Jamison on 10-18-2022 Hemoglobin (Bld) [Mass/Vol] 13.6 g/dL 12.0-15.0 [facility] Blood lymphocytes/100 leukoc ytesOrdered By: Asad Jamison on 10-18-2022 Lymphocytes/100 WBC (Bld) 12.1 % 19-41 [facility] Blood monocytes/100 leukocyt esOrdered By: Asad Jamison on 10-18-2022 Monocytes/100 WBC (Bld) 11.1 % 0-10 [facility] Blood platelet mean volumeOr dered By: Asad Jamison on 10-18-2022 Platelet mean volume (Bld) [Entitic vol] 8.6 fL 6.2-12.0 [facility] Determination of erythrocyte mean corpuscular volume (MCV)Ordered By: Asad Jamison on 10-18-2022 MCV (RBC) [Entitic vol] 87.5 fL 81-99 [facility] Hematocrit Auto (Bld) [Volum e fraction]Ordered By: Asad Jamison on 10-18-2022 Hematocrit (Bld) [Volume fraction] 44.6 % 37-47 [facility] Laboratory - Chemistry and C hemistry - challengeOrdered By: Asad Jamison on 10-18-2022 CO2 [Moles/Vol] 22.0 mmol/L 21.0-32.0 [facility] Urea nitrogen/Creatinine [Mass ratio] 28.1 mg/mg 10-20 [facility] Laboratory - Hematology and Cell countsOrdered By: Asad Jamison on 10-18-2022 Erythrocyte distribution width (RBC) [Entitic vol] 46.2 fL 35.1-43.9 [facility] Erythrocyte distribution width (RBC) [Ratio] 14.3 % 11.6-14.6 [facility] Immature granulocytes/100 WBC (Bld) 1.400 % 0.0-0.9 [facility] Comment on above: IG% - Immature Granu locytes (promyelocytes, myelocytes and metamyelocytes) > 1% indicates that a LEFT SHIFT is Present. MCH (RBC) [Entitic mass] 26.7 pg 27.0-32.0 [facility] Nucleated RBC/100 WBC (Bld) [Ratio] 0 % 0-5 [facility] MCHC Auto (RBC) [Mass/Vol]Or dered By: Asad Jamison on 10-18-2022 MCHC (RBC) [Mass/Vol] 30.5 g/dL 32-36 [facility] No Panel InformationOrdered By: Asad Jamison on 10-18-2022 Estimated GFR (MDRD) Amer 106 mL/min >60 [facility] Comment on above: GFR Calc Estimated GFR (MDRD) Non-Af Amer 88 mL/min >60 [facility] Comment on above: Non- GFR Calc Platelets bldOrdered By: Gonzales Jamison on 10-18-2022 Platelets (Bld) [#/Vol] 622 10*3/uL 150-450 [facility] Serum or plasma calcium jj urement (mass/volume)Ordered By: Asad Jamison on 10-18-2022 Calcium [Mass/Vol] 9.4 mg/dL 8.5-10.1 [facility] Serum or plasma creatinine m easurement (mass/volume)Ordered By: Asad Jamison on 10-18-2022 Creatinine [Mass/Vol] 0.71 mg/dL 0.55-1.02 [facility] Comment on above: The validity of the calculated GFR & GFRAA in patients over 70 years has not been determined. Clinical correlation is essential. Serum or plasma urea nitroge n measurement (mass/volume)Ordered By: Asad Jamison on 10-18-2022 Urea nitrogen [Mass/Vol] 20 mg/dL 7-18 [facility] Thin prep Papanicolaou smear with manual screeningOrdered By: Asad Jamison on 10-18-2022 Thin prep Papanicolaou smear with manual screening 8 5-15 [facility] Absolute lymphocyte countOrd ered By: Asad Jamison on 10-04-2022 Lymphocytes Auto (Unsp spec) [#/Vol] 1.09 10*3/uL 0.83-4.51 [facility] Basophil percentageOrdered B y: Asad Jamison on 10-04-2022 Basophils/100 WBC (Bld) 1.2 % 0-1 [facility] Chloride [Moles/Vol] 107 mmol/L 98-107 [facility] Eosinophils/100 WBC (Bld) 4.5 % 0-5 [facility] Glucose [Mass/Vol] 123 mg/dL 74-106 [facility] Comment on above: Fasting Glucose resu lt from 100 to 125 mg/dL suggests IMPAIRED HOMEOSTASIS per A.D.A. criteria. Neutrophils (Bld) [#/Vol] 6.5 10*3/uL 2.0-7.7 [facility] Neutrophils/100 WBC (Bld) 71.3 % 47-70 [facility] Potassium [Moles/Vol] 3.9 mmol/L 3.5-5.1 [facility] Sodium [Moles/Vol] 140 mmol/L 136-145 [facility] WBC (Bld) [#/Vol] 9.1 10*3/uL 4.4-11.0 [facility] Blood erythrocytes count (nu mber/volume)Ordered By: sAad Jamison on 10-04-2022 RBC (Bld) [#/Vol] 5.46 10*6/uL 4.2-5.4 [facility] Blood hemoglobin measurement (mass/volume)Ordered By: Asad Jamison on 10-04-2022 Hemoglobin (Bld) [Mass/Vol] 14.4 g/dL 12.0-15.0 [facility] Blood lymphocytes/100 leukoc ytesOrdered By: Asad Jamison on 10-04-2022 Lymphocytes/100 WBC (Bld) 12.0 % 19-41 [facility] Blood monocytes/100 leukocyt esOrdered By: Asad Jamison on 10-04-2022 Monocytes/100 WBC (Bld) 10.0 % 0-10 [facility] Blood platelet mean volumeOr dered By: Asad Jamison on 10-04-2022 Platelet mean volume (Bld) [Entitic vol] 8.4 fL 6.2-12.0 [facility] Determination of erythrocyte mean corpuscular volume (MCV)Ordered By: Asad Jamison on 10-04-2022 MCV (RBC) [Entitic vol] 86.1 fL 81-99 [facility] Hematocrit Auto (Bld) [Volum e fraction]Ordered By: Asad Jamison on 10-04-2022 Hematocrit (Bld) [Volume fraction] 47.0 % 37-47 [facility] Laboratory - Chemistry and C hemistry - challengeOrdered By: Asad Jamison on 10-04-2022 CO2 [Moles/Vol] 25.0 mmol/L 21.0-32.0 [facility] Urea nitrogen/Creatinine [Mass ratio] 34.6 mg/mg 10-20 [facility] Laboratory - Hematology and Cell countsOrdered By: Asad Jamison on 10-04-2022 Erythrocyte distribution width (RBC) [Entitic vol] 44.2 fL 35.1-43.9 [facility] Erythrocyte distribution width (RBC) [Ratio] 14.2 % 11.6-14.6 [facility] Immature granulocytes/100 WBC (Bld) 1.000 % 0.0-0.9 [facility] Comment on above: IG% - Immature Granu locytes (promyelocytes, myelocytes and metamyelocytes) > 1% indicates that a LEFT SHIFT is Present. MCH (RBC) [Entitic mass] 26.4 pg 27.0-32.0 [facility] Nucleated RBC/100 WBC (Bld) [Ratio] 0 % 0-5 [facility] MCHC Auto (RBC) [Mass/Vol]Or dered By: Asad Jamison on 10-04-2022 MCHC (RBC) [Mass/Vol] 30.6 g/dL 32-36 [facility] No Panel InformationOrdered By: Asad Jamison on 10-04-2022 Estimated GFR (MDRD) Amer 115 mL/min >60 [facility] Comment on above: GFR Calc Estimated GFR (MDRD) Non-Af Amer 95 mL/min >60 [facility] Comment on above: Non- GFR Calc Platelets bldOrdered By: Gonzales Jamison on 10-04-2022 Platelets (Bld) [#/Vol] 566 10*3/uL 150-450 [facility] Serum or plasma calcium jj urement (mass/volume)Ordered By: Asad Jamison on 10-04-2022 Calcium [Mass/Vol] 9.8 mg/dL 8.5-10.1 [facility] Serum or plasma creatinine m easurement (mass/volume)Ordered By: Asad Jamison on 10-04-2022 Creatinine [Mass/Vol] 0.66 mg/dL 0.55-1.02 [facility] Comment on above: The validity of the calculated GFR & GFRAA in patients over 70 years has not been determined. Clinical correlation is essential. Serum or plasma urea nitroge n measurement (mass/volume)Ordered By: Asad Jamison on 10-04-2022 Urea nitrogen [Mass/Vol] 23 mg/dL 7-18 [facility] Thin prep Papanicolaou smear with manual screeningOrdered By: Asad Jamison on 10-04-2022 Thin prep Papanicolaou smear with manual screening 8 5-15 [facility] Absolute lymphocyte countOrd ered By: Asad Jamison on 09-20-2022 Lymphocytes Auto (Unsp spec) [#/Vol] 1.20 10*3/uL 0.83-4.51 [facility] Basophil percentageOrdered B y: Asad Jamison on 09-20-2022 Basophils/100 WBC (Bld) 1.1 % 0-1 [facility] Chloride [Moles/Vol] 110 mmol/L 98-107 [facility] Eosinophils/100 WBC (Bld) 5.3 % 0-5 [facility] Glucose [Mass/Vol] 129 mg/dL 74-106 [facility] Comment on above: Fasting Glucose resu lt greater than or equal to 126 mg/dL suggests DIABETES MELLITUS per A.D.A. criteria. Neutrophils (Bld) [#/Vol] 7.2 10*3/uL 2.0-7.7 [facility] Neutrophils/100 WBC (Bld) 71.4 % 47-70 [facility] Potassium [Moles/Vol] 4.0 mmol/L 3.5-5.1 [facility] Sodium [Moles/Vol] 139 mmol/L 136-145 [facility] WBC (Bld) [#/Vol] 10.0 10*3/uL 4.4-11.0 [facility] Blood erythrocytes count (nu mber/volume)Ordered By: Asad Jamison on 09-20-2022 RBC (Bld) [#/Vol] 4.97 10*6/uL 4.2-5.4 [facility] Blood hemoglobin measurement (mass/volume)Ordered By: Asad Jamison on 09-20-2022 Hemoglobin (Bld) [Mass/Vol] 13.4 g/dL 12.0-15.0 [facility] Blood lymphocytes/100 leukoc ytesOrdered By: Asad Jamison on 09-20-2022 Lymphocytes/100 WBC (Bld) 12.0 % 19-41 [facility] Blood monocytes/100 leukocyt esOrdered By: Asad Jamison on 09-20-2022 Monocytes/100 WBC (Bld) 9.3 % 0-10 [facility] Blood platelet mean volumeOr dered By: Asad Jamison on 09-20-2022 Platelet mean volume (Bld) [Entitic vol] 8.7 fL 6.2-12.0 [facility] Determination of erythrocyte mean corpuscular volume (MCV)Ordered By: Asad Jamison on 09-20-2022 MCV (RBC) [Entitic vol] 88.3 fL 81-99 [facility] Hematocrit Auto (Bld) [Volum e fraction]Ordered By: Asad Jamison on 09-20-2022 Hematocrit (Bld) [Volume fraction] 43.9 % 37-47 [facility] Laboratory - Chemistry and C hemistry - challengeOrdered By: Asad Jamison on 09-20-2022 CO2 [Moles/Vol] 25.0 mmol/L 21.0-32.0 [facility] Urea nitrogen/Creatinine [Mass ratio] 41.7 mg/mg 10-20 [facility] Laboratory - Hematology and Cell countsOrdered By: Asad Jamison on 09-20-2022 Erythrocyte distribution width (RBC) [Entitic vol] 45.1 fL 35.1-43.9 [facility] Erythrocyte distribution width (RBC) [Ratio] 14.2 % 11.6-14.6 [facility] Immature granulocytes/100 WBC (Bld) 0.900 % 0.0-0.9 [facility] Comment on above: IG% - Immature Granu locytes (promyelocytes, myelocytes and metamyelocytes) > 1% indicates that a LEFT SHIFT is Present. MCH (RBC) [Entitic mass] 27.0 pg 27.0-32.0 [facility] Nucleated RBC/100 WBC (Bld) [Ratio] 0 % 0-5 [facility] MCHC Auto (RBC) [Mass/Vol]Or dered By: Asad Jamison on 09-20-2022 MCHC (RBC) [Mass/Vol] 30.5 g/dL 32-36 [facility] No Panel InformationOrdered By: Asad Jamison on 09-20-2022 Estimated GFR (MDRD) Amer 129 mL/min >60 [facility] Comment on above: GFR Calc Estimated GFR (MDRD) Non-Af Amer 107 mL/min >60 [facility] Comment on above: Non- GFR Calc Platelets bldOrdered By: Gonzales Jamison on 09-20-2022 Platelets (Bld) [#/Vol] 533 10*3/uL 150-450 [facility] Serum or plasma calcium jj urement (mass/volume)Ordered By: Asad Jamison on 09-20-2022 Calcium [Mass/Vol] 9.4 mg/dL 8.5-10.1 [facility] Serum or plasma creatinine m easurement (mass/volume)Ordered By: Asad Jamison on 09-20-2022 Creatinine [Mass/Vol] 0.60 mg/dL 0.55-1.02 [facility] Comment on above: The validity of the calculated GFR & GFRAA in patients over 70 years has not been determined. Clinical correlation is essential. Serum or plasma urea nitroge n measurement (mass/volume)Ordered By: Asad Jamison on 09-20-2022 Urea nitrogen [Mass/Vol] 25 mg/dL 7-18 [facility] Thin prep Papanicolaou smear with manual screeningOrdered By: Asad Jamison on 09-20-2022 Thin prep Papanicolaou smear with manual screening 4 5-15 [facility] Absolute lymphocyte countOrd ered By: Asad Jamison on 09-06-2022 Lymphocytes Auto (Unsp spec) [#/Vol] 0.97 10*3/uL 0.83-4.51 [facility] Basophil percentageOrdered B y: Asad Jamison on 09-06-2022 Basophils/100 WBC (Bld) 1.0 % 0-1 [facility] Chloride [Moles/Vol] 107 mmol/L 98-107 [facility] Eosinophils/100 WBC (Bld) 4.5 % 0-5 [facility] Glucose [Mass/Vol] 112 mg/dL 74-106 [facility] Comment on above: Fasting Glucose resu lt from 100 to 125 mg/dL suggests IMPAIRED HOMEOSTASIS per A.D.A. criteria. Neutrophils (Bld) [#/Vol] 6.2 10*3/uL 2.0-7.7 [facility] Neutrophils/100 WBC (Bld) 72.2 % 47-70 [facility] Potassium [Moles/Vol] 3.7 mmol/L 3.5-5.1 [facility] Sodium [Moles/Vol] 138 mmol/L 136-145 [facility] WBC (Bld) [#/Vol] 8.6 10*3/uL 4.4-11.0 [facility] Blood erythrocytes count (nu mber/volume)Ordered By: Asad Jamison on 09-06-2022 RBC (Bld) [#/Vol] 5.05 10*6/uL 4.2-5.4 [facility] Blood hemoglobin measurement (mass/volume)Ordered By: Asad Jamison on 09-06-2022 Hemoglobin (Bld) [Mass/Vol] 13.6 g/dL 12.0-15.0 [facility] Blood lymphocytes/100 leukoc ytesOrdered By: Asad Jamison on 09-06-2022 Lymphocytes/100 WBC (Bld) 11.3 % 19-41 [facility] Blood monocytes/100 leukocyt esOrdered By: Asad Jamison on 09-06-2022 Monocytes/100 WBC (Bld) 10.4 % 0-10 [facility] Blood platelet mean volumeOr dered By: Asad Jamison on 09-06-2022 Platelet mean volume (Bld) [Entitic vol] 8.4 fL 6.2-12.0 [facility] Determination of erythrocyte mean corpuscular volume (MCV)Ordered By: Asad Jamison on 09-06-2022 MCV (RBC) [Entitic vol] 87.7 fL 81-99 [facility] Hematocrit Auto (Bld) [Volum e fraction]Ordered By: Asad Jamison on 09-06-2022 Hematocrit (Bld) [Volume fraction] 44.3 % 37-47 [facility] Laboratory - Chemistry and C hemistry - challengeOrdered By: Asad Jamison on 09-06-2022 CO2 [Moles/Vol] 25.0 mmol/L 21.0-32.0 [facility] Urea nitrogen/Creatinine [Mass ratio] 30.4 mg/mg 10-20 [facility] Laboratory - Hematology and Cell countsOrdered By: Asad Jamison on 09-06-2022 Erythrocyte distribution width (RBC) [Entitic vol] 45.9 fL 35.1-43.9 [facility] Erythrocyte distribution width (RBC) [Ratio] 14.3 % 11.6-14.6 [facility] Immature granulocytes/100 WBC (Bld) 0.600 % 0.0-0.9 [facility] Comment on above: IG% - Immature Granu locytes (promyelocytes, myelocytes and metamyelocytes) > 1% indicates that a LEFT SHIFT is Present. MCH (RBC) [Entitic mass] 26.9 pg 27.0-32.0 [facility] Nucleated RBC/100 WBC (Bld) [Ratio] 0 % 0-5 [facility] MCHC Auto (RBC) [Mass/Vol]Or dered By: Asad Jamison on 09-06-2022 MCHC (RBC) [Mass/Vol] 30.7 g/dL 32-36 [facility] No Panel InformationOrdered By: Asad Jamison on 09-06-2022 Estimated GFR (MDRD) Amer 116 mL/min >60 [facility] Comment on above: GFR Calc Estimated GFR (MDRD) Non-Af Amer 96 mL/min >60 [facility] Comment on above: Non- GFR Calc Platelets bldOrdered By: Gonzales Jamison on 09-06-2022 Platelets (Bld) [#/Vol] 484 10*3/uL 150-450 [facility] Serum or plasma calcium jj urement (mass/volume)Ordered By: Asad Jamison on 09-06-2022 Calcium [Mass/Vol] 9.4 mg/dL 8.5-10.1 [facility] Serum or plasma creatinine m easurement (mass/volume)Ordered By: Asad Jamison on 09-06-2022 Creatinine [Mass/Vol] 0.66 mg/dL 0.55-1.02 [facility] Comment on above: The validity of the calculated GFR & GFRAA in patients over 70 years has not been determined. Clinical correlation is essential. Serum or plasma urea nitroge n measurement (mass/volume)Ordered By: Asad Jamison on 09-06-2022 Urea nitrogen [Mass/Vol] 20 mg/dL 7-18 [facility] Thin prep Papanicolaou smear with manual screeningOrdered By: Asad Jamison on 09-06-2022 Thin prep Papanicolaou smear with manual screening 6 5-15 [facility] Absolute lymphocyte countOrd ered By: Asad Jamison on 08-23-2022 Lymphocytes Auto (Unsp spec) [#/Vol] 1.01 10*3/uL 0.83-4.51 [facility] Basophil percentageOrdered B y: Asad Jamison on 08-23-2022 Basophils/100 WBC (Bld) 1.6 % 0-1 [facility] Chloride [Moles/Vol] 106 mmol/L 98-107 [facility] Eosinophils/100 WBC (Bld) 5.7 % 0-5 [facility] Glucose [Mass/Vol] 129 mg/dL 74-106 [facility] Comment on above: Fasting Glucose resu lt greater than or equal to 126 mg/dL suggests DIABETES MELLITUS per A.D.A. criteria. Neutrophils (Bld) [#/Vol] 4.6 10*3/uL 2.0-7.7 [facility] Neutrophils/100 WBC (Bld) 65.1 % 47-70 [facility] Potassium [Moles/Vol] 4.1 mmol/L 3.5-5.1 [facility] Sodium [Moles/Vol] 141 mmol/L 136-145 [facility] WBC (Bld) [#/Vol] 7.0 10*3/uL 4.4-11.0 [facility] Blood erythrocytes count (nu mber/volume)Ordered By: Asad Jamison on 08-23-2022 RBC (Bld) [#/Vol] 5.08 10*6/uL 4.2-5.4 [facility] Blood hemoglobin measurement (mass/volume)Ordered By: Asad Jamison on 08-23-2022 Hemoglobin (Bld) [Mass/Vol] 13.7 g/dL 12.0-15.0 [facility] Blood lymphocytes/100 leukoc ytesOrdered By: Asad Jamison on 08-23-2022 Lymphocytes/100 WBC (Bld) 14.4 % 19-41 [facility] Blood monocytes/100 leukocyt esOrdered By: Asad Jamison on 08-23-2022 Monocytes/100 WBC (Bld) 12.5 % 0-10 [facility] Blood platelet mean volumeOr dered By: Asad Jamison on 08-23-2022 Platelet mean volume (Bld) [Entitic vol] 9.1 fL 6.2-12.0 [facility] Determination of erythrocyte mean corpuscular volume (MCV)Ordered By: Asad Jamison on 08-23-2022 MCV (RBC) [Entitic vol] 88.4 fL 81-99 [facility] Hematocrit Auto (Bld) [Volum e fraction]Ordered By: Asad Jamison on 08-23-2022 Hematocrit (Bld) [Volume fraction] 44.9 % 37-47 [facility] Laboratory - Chemistry and C hemistry - challengeOrdered By: Asad Jamison on 08-23-2022 CO2 [Moles/Vol] 26.0 mmol/L 21.0-32.0 [facility] Urea nitrogen/Creatinine [Mass ratio] 38.0 mg/mg 10-20 [facility] Laboratory - Hematology and Cell countsOrdered By: Asad Jamison on 08-23-2022 Erythrocyte distribution width (RBC) [Entitic vol] 45.2 fL 35.1-43.9 [facility] Erythrocyte distribution width (RBC) [Ratio] 14.1 % 11.6-14.6 [facility] Immature granulocytes/100 WBC (Bld) 0.700 % 0.0-0.9 [facility] Comment on above: IG% - Immature Granu locytes (promyelocytes, myelocytes and metamyelocytes) > 1% indicates that a LEFT SHIFT is Present. MCH (RBC) [Entitic mass] 27.0 pg 27.0-32.0 [facility] Nucleated RBC/100 WBC (Bld) [Ratio] 0 % 0-5 [facility] MCHC Auto (RBC) [Mass/Vol]Or dered By: Asad Jamison on 08-23-2022 MCHC (RBC) [Mass/Vol] 30.5 g/dL 32-36 [facility] No Panel InformationOrdered By: Asad Jamison on 08-23-2022 Estimated GFR (MDRD) Amer 128 mL/min >60 [facility] Comment on above: GFR Calc Estimated GFR (MDRD) Non-Af Amer 106 mL/min >60 [facility] Comment on above: Non- GFR Calc Platelets bldOrdered By: Gonzales Jamison on 08-23-2022 Platelets (Bld) [#/Vol] 504 10*3/uL 150-450 [facility] Serum or plasma calcium jj urement (mass/volume)Ordered By: Asad Jamison on 08-23-2022 Calcium [Mass/Vol] 9.5 mg/dL 8.5-10.1 [facility] Serum or plasma creatinine m easurement (mass/volume)Ordered By: Asad Jamison on 08-23-2022 Creatinine [Mass/Vol] 0.60 mg/dL 0.55-1.02 [facility] Comment on above: The validity of the calculated GFR & GFRAA in patients over 70 years has not been determined. Clinical correlation is essential. Serum or plasma urea nitroge n measurement (mass/volume)Ordered By: Asad Jamison on 08-23-2022 Urea nitrogen [Mass/Vol] 23 mg/dL 7-18 [facility] Thin prep Papanicolaou smear with manual screeningOrdered By: Asad Jamison on 08-23-2022 Thin prep Papanicolaou smear with manual screening 9 5-15 [facility] Absolute lymphocyte countOrd ered By: Breanne Ruiz on 08-09-2022 Lymphocytes Auto (Unsp spec) [#/Vol] 1.01 10*3/uL 0.83-4.51 [facility] Basophil percentageOrdered B y: Breanne Ruiz on 08-09-2022 Basophils/100 WBC (Bld) 1.0 % 0-1 [facility] Chloride [Moles/Vol] 106 mmol/L 98-107 [facility] Eosinophils/100 WBC (Bld) 5.8 % 0-5 [facility] Glucose [Mass/Vol] 117 mg/dL 74-106 [facility] Comment on above: Fasting Glucose resu lt from 100 to 125 mg/dL suggests IMPAIRED HOMEOSTASIS per A.D.A. criteria. Neutrophils (Bld) [#/Vol] 5.8 10*3/uL 2.0-7.7 [facility] Neutrophils/100 WBC (Bld) 69.6 % 47-70 [facility] Potassium [Moles/Vol] 4.1 mmol/L 3.5-5.1 [facility] Comment on above: Slight Hemolysis, Re sult may be falsely increased. Sodium [Moles/Vol] 138 mmol/L 136-145 [facility] WBC (Bld) [#/Vol] 8.3 10*3/uL 4.4-11.0 [facility] Blood erythrocytes count (nu mber/volume)Ordered By: Breanne Ruiz on 08-09-2022 RBC (Bld) [#/Vol] 4.96 10*6/uL 4.2-5.4 [facility] Blood hemoglobin measurement (mass/volume)Ordered By: Breanne Ruiz on 08-09-2022 Hemoglobin (Bld) [Mass/Vol] 13.3 g/dL 12.0-15.0 [facility] Blood lymphocytes/100 leukoc ytesOrdered By: Breanne Ruiz on 08-09-2022 Lymphocytes/100 WBC (Bld) 12.2 % 19-41 [facility] Blood monocytes/100 leukocyt esOrdered By: Breanne Ruiz on 08-09-2022 Monocytes/100 WBC (Bld) 10.8 % 0-10 [facility] Blood platelet mean volumeOr dered By: Breanne Ruiz on 08-09-2022 Platelet mean volume (Bld) [Entitic vol] 9.0 fL 6.2-12.0 [facility] Determination of erythrocyte mean corpuscular volume (MCV)Ordered By: Breanne Ruiz on 08-09-2022 MCV (RBC) [Entitic vol] 89.3 fL 81-99 [facility] Hematocrit Auto (Bld) [Volum e fraction]Ordered By: Breanne Ruiz on 08-09-2022 Hematocrit (Bld) [Volume fraction] 44.3 % 37-47 [facility] Laboratory - Chemistry and C hemistry - challengeOrdered By: Breanne Ruiz on 08-09-2022 CO2 [Moles/Vol] 23.0 mmol/L 21.0-32.0 [facility] Urea nitrogen/Creatinine [Mass ratio] 38.2 mg/mg 10-20 [facility] Laboratory - Hematology and Cell countsOrdered By: Breanne Ruiz on 08-09-2022 Erythrocyte distribution width (RBC) [Entitic vol] 46.2 fL 35.1-43.9 [facility] Erythrocyte distribution width (RBC) [Ratio] 14.2 % 11.6-14.6 [facility] Immature granulocytes/100 WBC (Bld) 0.600 % 0.0-0.9 [facility] Comment on above: IG% - Immature Granu locytes (promyelocytes, myelocytes and metamyelocytes) > 1% indicates that a LEFT SHIFT is Present. MCH (RBC) [Entitic mass] 26.8 pg 27.0-32.0 [facility] Nucleated RBC/100 WBC (Bld) [Ratio] 0 % 0-5 [facility] MCHC Auto (RBC) [Mass/Vol]Or dered By: Breanne Ruiz on 08-09-2022 MCHC (RBC) [Mass/Vol] 30.0 g/dL 32-36 [facility] No Panel InformationOrdered By: Breanne Ruiz on 08-09-2022 Estimated GFR (MDRD) Amer 122 mL/min >60 [facility] Comment on above: GFR Calc Estimated GFR (MDRD) Non-Af Amer 101 mL/min >60 [facility] Comment on above: Non- GFR Calc Platelets bldOrdered By: Prashant Ruiz on 08-09-2022 Platelets (Bld) [#/Vol] 463 10*3/uL 150-450 [facility] Serum or plasma calcium jj urement (mass/volume)Ordered By: Breanne Ruiz on 08-09-2022 Calcium [Mass/Vol] 9.5 mg/dL 8.5-10.1 [facility] Serum or plasma creatinine m easurement (mass/volume)Ordered By: Breanne Ruiz on 08-09-2022 Creatinine [Mass/Vol] 0.63 mg/dL 0.55-1.02 [facility] Comment on above: The validity of the calculated GFR & GFRAA in patients over 70 years has not been determined. Clinical correlation is essential. Serum or plasma urea nitroge n measurement (mass/volume)Ordered By: Breanne Ruiz on 08-09-2022 Urea nitrogen [Mass/Vol] 24 mg/dL 7-18 [facility] Thin prep Papanicolaou smear with manual screeningOrdered By: Breanne Ruiz on 08-09-2022 Thin prep Papanicolaou smear with manual screening 9 5-15 [facility] Absolute lymphocyte countOrd ered By: Breanne Ruiz on 07-26-2022 Lymphocytes Auto (Unsp spec) [#/Vol] 1.12 10*3/uL 0.83-4.51 [facility] Basophil percentageOrdered B y: Breanne Ruiz on 07-26-2022 Basophils/100 WBC (Bld) 1.7 % 0-1 [facility] Chloride [Moles/Vol] 109 mmol/L 98-107 [facility] Eosinophils/100 WBC (Bld) 6.3 % 0-5 [facility] Glucose [Mass/Vol] 110 mg/dL 74-106 [facility] Comment on above: Fasting Glucose resu lt from 100 to 125 mg/dL suggests IMPAIRED HOMEOSTASIS per A.D.A. criteria. Neutrophils (Bld) [#/Vol] 4.2 10*3/uL 2.0-7.7 [facility] Neutrophils/100 WBC (Bld) 62.5 % 47-70 [facility] Potassium [Moles/Vol] 4.1 mmol/L 3.5-5.1 [facility] Sodium [Moles/Vol] 143 mmol/L 136-145 [facility] WBC (Bld) [#/Vol] 6.6 10*3/uL 4.4-11.0 [facility] Blood erythrocytes count (nu mber/volume)Ordered By: Breanne Ruiz on 07-26-2022 RBC (Bld) [#/Vol] 4.98 10*6/uL 4.2-5.4 [facility] Blood hemoglobin measurement (mass/volume)Ordered By: Breanne Ruiz on 07-26-2022 Hemoglobin (Bld) [Mass/Vol] 13.4 g/dL 12.0-15.0 [facility] Blood lymphocytes/100 leukoc ytesOrdered By: Breanne Ruiz on 07-26-2022 Lymphocytes/100 WBC (Bld) 16.9 % 19-41 [facility] Blood monocytes/100 leukocyt esOrdered By: Breanne Ruiz on 07-26-2022 Monocytes/100 WBC (Bld) 11.5 % 0-10 [facility] Blood platelet mean volumeOr dered By: Breanne Ruiz on 07-26-2022 Platelet mean volume (Bld) [Entitic vol] 8.9 fL 6.2-12.0 [facility] Determination of erythrocyte mean corpuscular volume (MCV)Ordered By: Breanne Ruiz on 07-26-2022 MCV (RBC) [Entitic vol] 90.6 fL 81-99 [facility] Hematocrit Auto (Bld) [Volum e fraction]Ordered By: Breanne Ruiz on 07-26-2022 Hematocrit (Bld) [Volume fraction] 45.1 % 37-47 [facility] Laboratory - Chemistry and C hemistry - challengeOrdered By: Breanne Ruiz on 07-26-2022 CO2 [Moles/Vol] 25.0 mmol/L 21.0-32.0 [facility] Urea nitrogen/Creatinine [Mass ratio] 48.5 mg/mg 10-20 [facility] Laboratory - Hematology and Cell countsOrdered By: Breanne Ruiz on 07-26-2022 Erythrocyte distribution width (RBC) [Entitic vol] 48.2 fL 35.1-43.9 [facility] Erythrocyte distribution width (RBC) [Ratio] 14.5 % 11.6-14.6 [facility] Immature granulocytes/100 WBC (Bld) 1.100 % 0.0-0.9 [facility] Comment on above: IG% - Immature Granu locytes (promyelocytes, myelocytes and metamyelocytes) > 1% indicates that a LEFT SHIFT is Present. MCH (RBC) [Entitic mass] 26.9 pg 27.0-32.0 [facility] Nucleated RBC/100 WBC (Bld) [Ratio] 0 % 0-5 [facility] MCHC Auto (RBC) [Mass/Vol]Or dered By: Breanne Ruiz on 07-26-2022 MCHC (RBC) [Mass/Vol] 29.7 g/dL 32-36 [facility] No Panel InformationOrdered By: Breanne Ruiz on 07-26-2022 Estimated GFR (MDRD) Amer 116 mL/min >60 [facility] Comment on above: GFR Calc Estimated GFR (MDRD) Non-Af Amer 96 mL/min >60 [facility] Comment on above: Non- GFR Calc Platelets bldOrdered By: Prashant Ruiz on 07-26-2022 Platelets (Bld) [#/Vol] 464 10*3/uL 150-450 [facility] Serum or plasma calcium jj urement (mass/volume)Ordered By: Breanne Ruiz on 07-26-2022 Calcium [Mass/Vol] 9.7 mg/dL 8.5-10.1 [facility] Serum or plasma creatinine m easurement (mass/volume)Ordered By: Breanne Ruiz on 07-26-2022 Creatinine [Mass/Vol] 0.66 mg/dL 0.55-1.02 [facility] Comment on above: The validity of the calculated GFR & GFRAA in patients over 70 years has not been determined. Clinical correlation is essential. Serum or plasma urea nitroge n measurement (mass/volume)Ordered By: Breanne Ruiz on 07-26-2022 Urea nitrogen [Mass/Vol] 32 mg/dL 7-18 [facility] Thin prep Papanicolaou smear with manual screeningOrdered By: Breanne Ruiz on 07-26-2022 Thin prep Papanicolaou smear with manual screening 9 5-15 [facility] Whole blood hemoglobin A1c/t otal hemoglobin ratio (mass fraction)Ordered By: Breanne Ruiz on 07-13-2022 HbA1c (Bld) [Mass fraction] 5.8 % 3.8-5.6 [facility] Comment on above: Normal < 5.7 % Predi abetic 5.7 - 6.4 % Diabetic >or= 6.5 % Please note range changes. Absolute lymphocyte countOrd ered By: Asad Jamison on 07-12-2022 Lymphocytes Auto (Unsp spec) [#/Vol] 1.16 10*3/uL 0.83-4.51 [facility] Basophil percentageOrdered B y: Asad Jamison on 07-12-2022 Basophils/100 WBC (Bld) 1.4 % 0-1 [facility] Chloride [Moles/Vol] 107 mmol/L 98-107 [facility] Eosinophils/100 WBC (Bld) 4.3 % 0-5 [facility] Glucose [Mass/Vol] 148 mg/dL 74-106 [facility] Comment on above: Fasting Glucose resu lt greater than or equal to 126 mg/dL suggests DIABETES MELLITUS per A.D.A. criteria. Neutrophils (Bld) [#/Vol] 5.3 10*3/uL 2.0-7.7 [facility] Neutrophils/100 WBC (Bld) 69.0 % 47-70 [facility] Potassium [Moles/Vol] 3.9 mmol/L 3.5-5.1 [facility] Sodium [Moles/Vol] 142 mmol/L 136-145 [facility] WBC (Bld) [#/Vol] 7.7 10*3/uL 4.4-11.0 [facility] Blood erythrocytes count (nu mber/volume)Ordered By: Asad Jamison on 07-12-2022 RBC (Bld) [#/Vol] 4.99 10*6/uL 4.2-5.4 [facility] Blood hemoglobin measurement (mass/volume)Ordered By: Asad Jamison on 07-12-2022 Hemoglobin (Bld) [Mass/Vol] 13.4 g/dL 12.0-15.0 [facility] Blood lymphocytes/100 leukoc ytesOrdered By: Asad Jamison on 07-12-2022 Lymphocytes/100 WBC (Bld) 15.0 % 19-41 [facility] Blood monocytes/100 leukocyt esOrdered By: Asad Jamison on 07-12-2022 Monocytes/100 WBC (Bld) 9.8 % 0-10 [facility] Blood platelet mean volumeOr dered By: Asad Jamison on 07-12-2022 Platelet mean volume (Bld) [Entitic vol] 8.6 fL 6.2-12.0 [facility] Determination of erythrocyte mean corpuscular volume (MCV)Ordered By: Asad Jamison on 07-12-2022 MCV (RBC) [Entitic vol] 88.4 fL 81-99 [facility] Hematocrit Auto (Bld) [Volum e fraction]Ordered By: Asad Jamison on 07-12-2022 Hematocrit (Bld) [Volume fraction] 44.1 % 37-47 [facility] Laboratory - Chemistry and C hemistry - challengeOrdered By: Asad Jamison on 07-12-2022 CO2 [Moles/Vol] 27.0 mmol/L 21.0-32.0 [facility] Urea nitrogen/Creatinine [Mass ratio] 36.2 mg/mg 10-20 [facility] Laboratory - Hematology and Cell countsOrdered By: Asad Jamison on 07-12-2022 Erythrocyte distribution width (RBC) [Entitic vol] 46.5 fL 35.1-43.9 [facility] Erythrocyte distribution width (RBC) [Ratio] 14.4 % 11.6-14.6 [facility] Immature granulocytes/100 WBC (Bld) 0.500 % 0.0-0.9 [facility] Comment on above: IG% - Immature Granu locytes (promyelocytes, myelocytes and metamyelocytes) > 1% indicates that a LEFT SHIFT is Present. MCH (RBC) [Entitic mass] 26.9 pg 27.0-32.0 [facility] Nucleated RBC/100 WBC (Bld) [Ratio] 0 % 0-5 [facility] MCHC Auto (RBC) [Mass/Vol]Or dered By: Asad Jamison on 07-12-2022 MCHC (RBC) [Mass/Vol] 30.4 g/dL 32-36 [facility] No Panel InformationOrdered By: Asad Jamison on 07-12-2022 Estimated GFR (MDRD) Amer 101 mL/min >60 [facility] Comment on above: GFR Calc Estimated GFR (MDRD) Non-Af Amer 83 mL/min >60 [facility] Comment on above: Non- GFR Calc Platelets bldOrdered By: Gonzales Jamison on 07-12-2022 Platelets (Bld) [#/Vol] 491 10*3/uL 150-450 [facility] Serum or plasma calcium jj urement (mass/volume)Ordered By: Asad Jamison on 07-12-2022 Calcium [Mass/Vol] 9.7 mg/dL 8.5-10.1 [facility] Serum or plasma creatinine m easurement (mass/volume)Ordered By: Asad Jamison on 07-12-2022 Creatinine [Mass/Vol] 0.74 mg/dL 0.55-1.02 [facility] Comment on above: The validity of the calculated GFR & GFRAA in patients over 70 years has not been determined. Clinical correlation is essential. Serum or plasma urea nitroge n measurement (mass/volume)Ordered By: Asad Jamison on 07-12-2022 Urea nitrogen [Mass/Vol] 27 mg/dL 7-18 [facility] Thin prep Papanicolaou smear with manual screeningOrdered By: Asad Jamison on 07-12-2022 Thin prep Papanicolaou smear with manual screening 8 5-15 [facility] Absolute lymphocyte countOrd ered By: Asad Jamison on 06-28-2022 Lymphocytes Auto (Unsp spec) [#/Vol] 1.41 10*3/uL 0.83-4.51 [facility] Basophil percentageOrdered B y: Asad Jamison on 06-28-2022 Basophils/100 WBC (Bld) 1.7 % 0-1 [facility] Chloride [Moles/Vol] 108 mmol/L 98-107 [facility] Eosinophils/100 WBC (Bld) 6.8 % 0-5 [facility] Glucose [Mass/Vol] 117 mg/dL 74-106 [facility] Comment on above: Fasting Glucose resu lt from 100 to 125 mg/dL suggests IMPAIRED HOMEOSTASIS per A.D.A. criteria. Neutrophils (Bld) [#/Vol] 3.8 10*3/uL 2.0-7.7 [facility] Neutrophils/100 WBC (Bld) 56.9 % 47-70 [facility] Potassium [Moles/Vol] 4.0 mmol/L 3.5-5.1 [facility] Sodium [Moles/Vol] 142 mmol/L 136-145 [facility] WBC (Bld) [#/Vol] 6.7 10*3/uL 4.4-11.0 [facility] Blood erythrocytes count (nu mber/volume)Ordered By: Asad Jamison on 06-28-2022 RBC (Bld) [#/Vol] 4.72 10*6/uL 4.2-5.4 [facility] Blood hemoglobin measurement (mass/volume)Ordered By: Asad Jamison on 06-28-2022 Hemoglobin (Bld) [Mass/Vol] 12.8 g/dL 12.0-15.0 [facility] Blood lymphocytes/100 leukoc ytesOrdered By: Asad Jamison on 06-28-2022 Lymphocytes/100 WBC (Bld) 21.2 % 19-41 [facility] Blood monocytes/100 leukocyt esOrdered By: Asad Jamison on 06-28-2022 Monocytes/100 WBC (Bld) 12.5 % 0-10 [facility] Blood platelet mean volumeOr dered By: Asad Jamison on 06-28-2022 Platelet mean volume (Bld) [Entitic vol] 9.0 fL 6.2-12.0 [facility] Determination of erythrocyte mean corpuscular volume (MCV)Ordered By: Asad Jamison on 06-28-2022 MCV (RBC) [Entitic vol] 90.7 fL 81-99 [facility] Hematocrit Auto (Bld) [Volum e fraction]Ordered By: Asad Jamison on 06-28-2022 Hematocrit (Bld) [Volume fraction] 42.8 % 37-47 [facility] Laboratory - Chemistry and C hemistry - challengeOrdered By: Asad Jamison on 06-28-2022 CO2 [Moles/Vol] 24.0 mmol/L 21.0-32.0 [facility] Urea nitrogen/Creatinine [Mass ratio] 39.1 mg/mg 10-20 [facility] Laboratory - Hematology and Cell countsOrdered By: Asad Jamison on 06-28-2022 Erythrocyte distribution width (RBC) [Entitic vol] 48.6 fL 35.1-43.9 [facility] Erythrocyte distribution width (RBC) [Ratio] 14.6 % 11.6-14.6 [facility] Immature granulocytes/100 WBC (Bld) 0.900 % 0.0-0.9 [facility] Comment on above: IG% - Immature Granu locytes (promyelocytes, myelocytes and metamyelocytes) > 1% indicates that a LEFT SHIFT is Present. MCH (RBC) [Entitic mass] 27.1 pg 27.0-32.0 [facility] Nucleated RBC/100 WBC (Bld) [Ratio] 0 % 0-5 [facility] MCHC Auto (RBC) [Mass/Vol]Or dered By: Asad Jamison on 06-28-2022 MCHC (RBC) [Mass/Vol] 29.9 g/dL 32-36 [facility] No Panel InformationOrdered By: Asad Jamison on 06-28-2022 Estimated GFR (MDRD) Amer 115 mL/min >60 [facility] Comment on above: GFR Calc Estimated GFR (MDRD) Non-Af Amer 95 mL/min >60 [facility] Comment on above: Non- GFR Calc Platelets bldOrdered By: Gonzales Jamison on 06-28-2022 Platelets (Bld) [#/Vol] 481 10*3/uL 150-450 [facility] Serum or plasma calcium jj urement (mass/volume)Ordered By: Asad Jamison on 06-28-2022 Calcium [Mass/Vol] 9.4 mg/dL 8.5-10.1 [facility] Serum or plasma creatinine m easurement (mass/volume)Ordered By: Asad Jamison on 06-28-2022 Creatinine [Mass/Vol] 0.66 mg/dL 0.55-1.02 [facility] Comment on above: The validity of the calculated GFR & GFRAA in patients over 70 years has not been determined. Clinical correlation is essential. Serum or plasma urea nitroge n measurement (mass/volume)Ordered By: Asad Jamison on 06-28-2022 Urea nitrogen [Mass/Vol] 26 mg/dL 7-18 [facility] Thin prep Papanicolaou smear with manual screeningOrdered By: Asad Jamison on 06-28-2022 Thin prep Papanicolaou smear with manual screening 10 5-15 [facility] Absolute lymphocyte countOrd ered By: Asad Jamison on 06-14-2022 Lymphocytes Auto (Unsp spec) [#/Vol] 1.27 10*3/uL 0.83-4.51 [facility] Basophil percentageOrdered B y: Asad Jamison on 06-14-2022 Basophils/100 WBC (Bld) 1.3 % 0-1 [facility] Chloride [Moles/Vol] 111 mmol/L 98-107 [facility] Eosinophils/100 WBC (Bld) 3.9 % 0-5 [facility] Glucose [Mass/Vol] 123 mg/dL 74-106 [facility] Comment on above: Fasting Glucose resu lt from 100 to 125 mg/dL suggests IMPAIRED HOMEOSTASIS per A.D.A. criteria. Neutrophils (Bld) [#/Vol] 4.5 10*3/uL 2.0-7.7 [facility] Neutrophils/100 WBC (Bld) 63.0 % 47-70 [facility] Potassium [Moles/Vol] 4.2 mmol/L 3.5-5.1 [facility] Sodium [Moles/Vol] 143 mmol/L 136-145 [facility] WBC (Bld) [#/Vol] 7.2 10*3/uL 4.4-11.0 [facility] Blood erythrocytes count (nu mber/volume)Ordered By: Asad Jamison on 06-14-2022 RBC (Bld) [#/Vol] 4.60 10*6/uL 4.2-5.4 [facility] Blood hemoglobin measurement (mass/volume)Ordered By: Asad Jamison on 06-14-2022 Hemoglobin (Bld) [Mass/Vol] 12.8 g/dL 12.0-15.0 [facility] Blood lymphocytes/100 leukoc ytesOrdered By: Asad Jamison on 06-14-2022 Lymphocytes/100 WBC (Bld) 17.7 % 19-41 [facility] Blood monocytes/100 leukocyt esOrdered By: Asad Jamison on 06-14-2022 Monocytes/100 WBC (Bld) 13.4 % 0-10 [facility] Blood platelet mean volumeOr dered By: Asad Jamison on 06-14-2022 Platelet mean volume (Bld) [Entitic vol] 9.0 fL 6.2-12.0 [facility] Determination of erythrocyte mean corpuscular volume (MCV)Ordered By: Asad Jamison on 06-14-2022 MCV (RBC) [Entitic vol] 90.4 fL 81-99 [facility] Hematocrit Auto (Bld) [Volum e fraction]Ordered By: Asad Jamison on 06-14-2022 Hematocrit (Bld) [Volume fraction] 41.6 % 37-47 [facility] Laboratory - Chemistry and C hemistry - challengeOrdered By: Asad Jamison on 06-14-2022 CO2 [Moles/Vol] 26.0 mmol/L 21.0-32.0 [facility] Urea nitrogen/Creatinine [Mass ratio] 49.2 mg/mg 10-20 [facility] Laboratory - Hematology and Cell countsOrdered By: Asad Jamison on 06-14-2022 Erythrocyte distribution width (RBC) [Entitic vol] 49.1 fL 35.1-43.9 [facility] Erythrocyte distribution width (RBC) [Ratio] 14.7 % 11.6-14.6 [facility] Immature granulocytes/100 WBC (Bld) 0.700 % 0.0-0.9 [facility] Comment on above: IG% - Immature Granu locytes (promyelocytes, myelocytes and metamyelocytes) > 1% indicates that a LEFT SHIFT is Present. MCH (RBC) [Entitic mass] 27.8 pg 27.0-32.0 [facility] Nucleated RBC/100 WBC (Bld) [Ratio] 0 % 0-5 [facility] MCHC Auto (RBC) [Mass/Vol]Or dered By: Asad Jamison on 06-14-2022 MCHC (RBC) [Mass/Vol] 30.8 g/dL 32-36 [facility] No Panel InformationOrdered By: Asad Jamison on 06-14-2022 Estimated GFR (MDRD) Amer 118 mL/min >60 [facility] Comment on above: GFR Calc Estimated GFR (MDRD) Non-Af Amer 97 mL/min >60 [facility] Comment on above: Non- GFR Calc Platelets bldOrdered By: Gonzales Jamison on 06-14-2022 Platelets (Bld) [#/Vol] 536 10*3/uL 150-450 [facility] Serum or plasma calcium jj urement (mass/volume)Ordered By: Asad Jamison on 06-14-2022 Calcium [Mass/Vol] 9.5 mg/dL 8.5-10.1 [facility] Serum or plasma creatinine m easurement (mass/volume)Ordered By: Asad Jamison on 06-14-2022 Creatinine [Mass/Vol] 0.65 mg/dL 0.55-1.02 [facility] Comment on above: The validity of the calculated GFR & GFRAA in patients over 70 years has not been determined. Clinical correlation is essential. Serum or plasma urea nitroge n measurement (mass/volume)Ordered By: Asad Jamison on 06-14-2022 Urea nitrogen [Mass/Vol] 32 mg/dL 7-18 [facility] Thin prep Papanicolaou smear with manual screeningOrdered By: Asad Jamison on 06-14-2022 Thin prep Papanicolaou smear with manual screening 6 5-15 [facility] Basophil percentageOrdered B y: Breanne Ruiz on 06-03-2022 Chloride [Moles/Vol] 106 mmol/L 98-107 [facility] Glucose [Mass/Vol] 116 mg/dL 74-106 [facility] Comment on above: Fasting Glucose resu lt from 100 to 125 mg/dL suggests IMPAIRED HOMEOSTASIS per A.D.A. criteria. Potassium [Moles/Vol] 4.1 mmol/L 3.5-5.1 [facility] Sodium [Moles/Vol] 139 mmol/L 136-145 [facility] Laboratory - Chemistry and C hemistry - challengeOrdered By: Breanne Ruiz on 06-03-2022 CO2 [Moles/Vol] 26.0 mmol/L 21.0-32.0 [facility] Urea nitrogen/Creatinine [Mass ratio] 38.7 mg/mg 10- [facility] No Panel InformationOrdered By: Breanne Ruiz on 06-03-2022 Estimated GFR (MDRD) Amer 138 mL/min >60 [facility] Comment on above: GFR Calc Estimated GFR (MDRD) Non-Af Amer 114 mL/min >60 [facility] Comment on above: Non- GFR Calc Serum or plasma calcium jj urement (mass/volume)Ordered By: Breanne Ruiz on 06-03-2022 Calcium [Mass/Vol] 9.7 mg/dL 8.5-10.1 [facility] Serum or plasma creatinine m easurement (mass/volume)Ordered [...] 06-03-2022 Urea nitrogen [Mass/Vol] 22 mg/dL 7-18 [facility] Thin prep Papanicolaou smear with manual screeningOrdered By: adalbertoolallachetan Ruiz on 06-03-2022 Thin prep Papanicolaou smear with manual screening 7 5-15 [facility] Basophil percentageOrdered B y: vannessa Ruiz on 06-01-2022 Potassium [Moles/Vol] 3.9 mmol/L 3.5-5.1 [facility] Absolute lymphocyte countOrd ered By: Breanne Ruiz on 05-31-2022 Lymphocytes Auto (Unsp spec) [#/Vol] 1.39 10*3/uL 0.83-4.51 [facility] Basophil percentageOrdered B y: Abbieolallachetan Ruiz on 05-31-2022 Basophils/100 WBC (Bld) 1.0 % 0-1 [facility] Chloride [Moles/Vol] 106 mmol/L 98-107 [facility] Eosinophils/100 WBC (Bld) 4.6 % 0-5 [facility] Glucose [Mass/Vol] 74 mg/dL 74-106 [facility] Neutrophils (Bld) [#/Vol] 7.3 10*3/uL 2.0-7.7 [facility] Neutrophils/100 WBC (Bld) 69.9 % 47-70 [facility] Potassium [Moles/Vol] 4.0 mmol/L 3.5-5.1 [facility] Sodium [Moles/Vol] 141 mmol/L 136-145 [facility] WBC (Bld) [#/Vol] 10.4 10*3/uL 4.4-11.0 [facility] Blood erythrocytes count (nu mber/volume)Ordered By: Breanne Ruiz on 05-31-2022 RBC (Bld) [#/Vol] 4.49 10*6/uL 4.2-5.4 [facility] Blood hemoglobin measurement (mass/volume)Ordered By: Breanne Ruiz on 05-31-2022 Hemoglobin (Bld) [Mass/Vol] 12.5 g/dL 12.0-15.0 [facility] Blood lymphocytes/100 leukoc ytesOrdered By: Breanne Ruiz on 05-31-2022 Lymphocytes/100 WBC (Bld) 13.3 % 19-41 [facility] Blood monocytes/100 leukocyt esOrdered By: vannessa Ruiz on 05-31-2022 Monocytes/100 WBC (Bld) 10.0 % 0-10 [facility] Blood platelet mean volumeOr dered By: Breanne Ruiz on 05-31-2022 Platelet mean volume (Bld) [Entitic vol] 8.8 fL 6.2-12.0 [facility] Culture, urineOrdered By: Elio Ruiz on 05-31-2022 Bacteria identified Cx Nom (U) Escherichia coli [facility] Determination of erythrocyte mean corpuscular volume (MCV)Ordered By: Breanne Ruiz on 05-31-2022 MCV (RBC) [Entitic vol] 91.3 fL 81-99 [facility] Hematocrit Auto (Bld) [Volum e fraction]Ordered By: Breanne Ruiz on 05-31-2022 Hematocrit (Bld) [Volume fraction] 41.0 % 37-47 [facility] Laboratory - Chemistry and C hemistry - challengeOrdered By: Breanne Ruiz on 05-31-2022 CO2 [Moles/Vol] 25.0 mmol/L 21.0-32.0 [facility] Urea nitrogen/Creatinine [Mass ratio] 43.0 mg/mg 10-20 [facility] Laboratory - Hematology and Cell countsOrdered By: Breanne Ruiz on 05-31-2022 Erythrocyte distribution width (RBC) [Entitic vol] 49.5 fL 35.1-43.9 [facility] Erythrocyte distribution width (RBC) [Ratio] 14.6 % 11.6-14.6 [facility] Immature granulocytes/100 WBC (Bld) 1.200 % 0.0-0.9 [facility] Comment on above: IG% - Immature Granu locytes (promyelocytes, myelocytes and metamyelocytes) > 1% indicates that a LEFT SHIFT is Present. MCH (RBC) [Entitic mass] 27.8 pg 27.0-32.0 [facility] Nucleated RBC/100 WBC (Bld) [Ratio] 0 % 0-5 [facility] MCHC Auto (RBC) [Mass/Vol]Or dered By: Breanne Ruiz on 05-31-2022 MCHC (RBC) [Mass/Vol] 30.5 g/dL 32-36 [facility] No Panel InformationOrdered By: Breanne Ruiz on 05-31-2022 Estimated GFR (MDRD) Amer 155 mL/min >60 [facility] Comment on above: GFR Calc Estimated GFR (MDRD) Non-Af Amer 128 mL/min >60 [facility] Comment on above: Non- GFR Calc Platelets bldOrdered By: Prashant Ruiz on 05-31-2022 Platelets (Bld) [#/Vol] 605 10*3/uL 150-450 [facility] Serum or plasma calcium jj urement (mass/volume)Ordered By: Breanne Ruiz on 05-31-2022 Calcium [Mass/Vol] 10.1 mg/dL 8.5-10.1 [facility] Serum or plasma creatinine m easurement (mass/volume)Ordered By: Breanne Ruiz on 05-31-2022 Creatinine [Mass/Vol] 0.51 mg/dL 0.55-1.02 [facility] Comment on above: The validity of the calculated GFR & GFRAA in patients over 70 years has not been determined. Clinical correlation is essential. Serum or plasma urea nitroge n measurement (mass/volume)Ordered By: Breanne Ruiz on 05-31-2022 Urea nitrogen [Mass/Vol] 22 mg/dL 7-18 [facility] Thin prep Papanicolaou smear with manual screeningOrdered By: Breanne Ruiz on 05-31-2022 Thin prep Papanicolaou smear with manual screening 10 5-15 [facility] Bilirubin Test strip Ql (U)O rdered By: Breanne Ruiz on 05-28-2022 Bilirubin Ql (U) Negative Negative [facility] Ketones Test strip Ql (U)Ord ered By: Breanne Ruiz on 05-28-2022 Ketones Ql (U) Negative Negative [facility] Nitrite Test strip Ql (U)Ord ered By: Breanne Ruiz on 05-28-2022 Nitrite Ql (U) Positive Negative [facility] Protein Test strip Ql (U)Ord ered By: Breanne Ruiz on 05-28-2022 Protein Ql (U) 30 mg/dl Negative [facility] Urine blood detectionOrdered By: Breanne Ruiz on 05-28-2022 RBC Ql (U) 25 /ul Negative [facility] Urine clarityOrdered By: Prashant Ruiz on 05-28-2022 Clarity (U) Cloudy Clear [facility] Urine color determinationOrd ered By: Breanne Ruiz on 05-28-2022 Color (U) Yellow Yellow [facility] Urine glucose detectionOrder ed By: Breanne Ruiz on 05-28-2022 Glucose Ql (U) Normal mg/dl Normal [facility] Urine leukocyte esterase det ection by dipstickOrdered By: Breanne Ruiz on 05-28-2022 Leukocyte esterase Test strip Ql (U) 500 /ul Negative [facility] Urine pHOrdered By: Bhupendra Ruiz on 05-28-2022 pH (U) 5.0 [pH] 5.0 - 8.0 [facility] Urine specific gravity measu rementOrdered By: Breanne Ruiz on 05-28-2022 Specific gravity (U) [Rel density] 1.025 1.002-1.030 [facility] Urobilinogen Auto test strip Ql (U)Ordered By: Breanne Ruiz on 05-28-2022 Urobilinogen Ql (U) Normal mg/dl Normal [facility] Absolute lymphocyte countOrd ered By: Breanne Ruiz on 05-27-2022 Lymphocytes Auto (Unsp spec) [#/Vol] 1.33 10*3/uL 0.83-4.51 [facility] Basophil percentageOrdered B y: Breanne Ruiz on 05-27-2022 Basophils/100 WBC (Bld) 0.4 % 0-1 [facility] Chloride [Moles/Vol] 106 mmol/L 98-107 [facility] Eosinophils/100 WBC (Bld) 0.1 % 0-5 [facility] Glucose [Mass/Vol] 196 mg/dL 74-106 [facility] Comment on above: Fasting Glucose resu lt greater than or equal to 126 mg/dL suggests DIABETES MELLITUS per A.D.A. criteria. Neutrophils (Bld) [#/Vol] 19.9 10*3/uL 2.0-7.7 [facility] Neutrophils/100 WBC (Bld) 85.7 % 47-70 [facility] Potassium [Moles/Vol] 3.3 mmol/L 3.5-5.1 [facility] Sodium [Moles/Vol] 139 mmol/L 136-145 [facility] WBC (Bld) [#/Vol] 23.2 10*3/uL 4.4-11.0 [facility] Blood erythrocytes count (nu mber/volume)Ordered By: Breanne Ruiz on 05-27-2022 RBC (Bld) [#/Vol] 4.62 10*6/uL 4.2-5.4 [facility] Blood hemoglobin measurement (mass/volume)Ordered By: Breanne Ruiz on 05-27-2022 Hemoglobin (Bld) [Mass/Vol] 12.9 g/dL 12.0-15.0 [facility] Blood lymphocytes/100 leukoc ytesOrdered By: Breanne Ruiz on 05-27-2022 Lymphocytes/100 WBC (Bld) 5.7 % 19-41 [facility] Blood manual differential co mment interpretation (narrative result)Ordered By: Breanne Ruiz on 05-27-2022 Manual differential comment Shaan (Bld) [Interp] COMMENT [facility] Comment on above: MONOCYTOSIS. Blood monocytes/100 leukocyt esOrdered By: Breanne Ruiz on 05-27-2022 Monocytes/100 WBC (Bld) 7.8 % 0-10 [facility] Blood platelet mean volumeOr dered By: Breanne Ruiz on 05-27-2022 Platelet mean volume (Bld) [Entitic vol] 8.6 fL 6.2-12.0 [facility] Determination of erythrocyte mean corpuscular volume (MCV)Ordered By: Breanne Ruiz on 05-27-2022 MCV (RBC) [Entitic vol] 88.1 fL 81-99 [facility] Hematocrit Auto (Bld) [Volum e fraction]Ordered By: Breanne Ruiz on 05-27-2022 Hematocrit (Bld) [Volume fraction] 40.7 % 37-47 [facility] Laboratory - Chemistry and C hemistry - challengeOrdered By: Abbieolallachetan Ruiz on 05-27-2022 CO2 [Moles/Vol] 22.0 mmol/L 21.0-32.0 [facility] Urea nitrogen/Creatinine [Mass ratio] 23.1 mg/mg 10-20 [facility] Laboratory - Hematology and Cell countsOrdered By: Breanne Ruiz on 05-27-2022 Erythrocyte distribution width (RBC) [Entitic vol] 48.1 fL 35.1-43.9 [facility] Erythrocyte distribution width (RBC) [Ratio] 14.9 % 11.6-14.6 [facility] Immature granulocytes/100 WBC (Bld) 0.300 % 0.0-0.9 [facility] Comment on above: IG% - Immature Granu locytes (promyelocytes, myelocytes and metamyelocytes) > 1% indicates that a LEFT SHIFT is Present. MCH (RBC) [Entitic mass] 27.9 pg 27.0-32.0 [facility] Nucleated RBC/100 WBC (Bld) [Ratio] 0 % 0-5 [facility] MCHC Auto (RBC) [Mass/Vol]Or dered By: Breanne Ruiz on 05-27-2022 MCHC (RBC) [Mass/Vol] 31.7 g/dL 32-36 [facility] No Panel InformationOrdered By: Breanne Ruiz on 05-27-2022 Estimated GFR (MDRD) Amer 80 mL/min >60 [facility] Comment on above: GFR Calc Estimated GFR (MDRD) Non-Af Amer 66 mL/min >60 [facility] Comment on above: Non- GFR Calc Troponin I High Sensitivity 7 pg/mL 3.0-54.0 [facility] Comment on above: Please Note: New [place]wo[place] t Units and Gender Specific Reference Ranges. For more information see Policy Stat Procedure [place] High Sensitivity Troponin (TNIH) and attachments. Platelets bldOrdered By: Prashant Ruiz on 05-27-2022 Platelets (Bld) [#/Vol] 468 10*3/uL 150-450 [facility] Review by pathologistOrdered By: Breanne Ruiz on 05-27-2022 Pathologist review Shaan (Unsp spec) [Interp] Reviewed [facility] Comment on above: Previous reported re sult: Kori isaacs Edited by: RGOJENNIFER on 05/31/22:1348Neutrophilic leukocytosis.Thrombocytosis.Clinical correlation necessary.Je Browne M.D. 05/31/22 AMENDED REPORT 05/31/22 1348 PATH REV previously reported as: Kori isaacs Serum or plasma calcium jj urement (mass/volume)Ordered By: Breanne Ruiz on 05-27-2022 Calcium [Mass/Vol] 9.4 mg/dL 8.5-10.1 [facility] Serum or plasma creatinine m easurement (mass/volume)Ordered By: Breanne Ruiz on 05-27-2022 Creatinine [Mass/Vol] 0.91 mg/dL 0.55-1.02 [facility] Comment on above: The validity of the calculated GFR & GFRAA in patients over 70 years has not been determined. Clinical correlation is essential. Serum or plasma urea nitroge n measurement (mass/volume)Ordered By: Breanne Ruiz on 05-27-2022 Urea nitrogen [Mass/Vol] 21 mg/dL 7-18 [facility] Thin prep Papanicolaou smear with manual screeningOrdered By: Breanne Ruiz on 05-27-2022 Thin prep Papanicolaou smear with manual screening 11 5-15 [facility] Absolute lymphocyte countOrd ered By: Breanne Ruiz on 05-17-2022 Lymphocytes Auto (Unsp spec) [#/Vol] 1.57 10*3/uL 0.83-4.51 [facility] Basophil percentageOrdered B y: Breanne Ruiz on 05-17-2022 Basophils/100 WBC (Bld) 1.3 % 0-1 [facility] Chloride [Moles/Vol] 110 mmol/L 98-107 [facility] Eosinophils/100 WBC (Bld) 5.6 % 0-5 [facility] Glucose [Mass/Vol] 109 mg/dL 74-106 [facility] Comment on above: Fasting Glucose resu lt from 100 to 125 mg/dL suggests IMPAIRED HOMEOSTASIS per A.D.A. criteria. Neutrophils (Bld) [#/Vol] 4.6 10*3/uL 2.0-7.7 [facility] Neutrophils/100 WBC (Bld) 60.7 % 47-70 [facility] Potassium [Moles/Vol] 4.0 mmol/L 3.5-5.1 [facility] Sodium [Moles/Vol] 144 mmol/L 136-145 [facility] WBC (Bld) [#/Vol] 7.6 10*3/uL 4.4-11.0 [facility] Blood erythrocytes count (nu mber/volume)Ordered By: Breanne Ruiz on 05-17-2022 RBC (Bld) [#/Vol] 4.79 10*6/uL 4.2-5.4 [facility] Blood hemoglobin measurement (mass/volume)Ordered By: Breanne Ruiz on 05-17-2022 Hemoglobin (Bld) [Mass/Vol] 13.0 g/dL 12.0-15.0 [facility] Blood lymphocytes/100 leukoc ytesOrdered By: Breanne Ruiz on 05-17-2022 Lymphocytes/100 WBC (Bld) 20.8 % 19-41 [facility] Blood monocytes/100 leukocyt esOrdered By: Breanne Ruiz on 05-17-2022 Monocytes/100 WBC (Bld) 11.2 % 0-10 [facility] Blood platelet mean volumeOr dered By: Breanne Ruiz on 05-17-2022 Platelet mean volume (Bld) [Entitic vol] 9.2 fL 6.2-12.0 [facility] Determination of erythrocyte mean corpuscular volume (MCV)Ordered By: Breanne Ruiz on 05-17-2022 MCV (RBC) [Entitic vol] 91.4 fL 81-99 [facility] Hematocrit Auto (Bld) [Volum e fraction]Ordered By: Breanne Ruiz on 05-17-2022 Hematocrit (Bld) [Volume fraction] 43.8 % 37-47 [facility] Laboratory - Chemistry and C hemistry - challengeOrdered By: Breanne Ruiz on 05-17-2022 CO2 [Moles/Vol] 26.0 mmol/L 21.0-32.0 [facility] Urea nitrogen/Creatinine [Mass ratio] 45.3 mg/mg 10-20 [facility] Laboratory - Hematology and Cell countsOrdered By: Breanne Ruiz on 05-17-2022 Erythrocyte distribution width (RBC) [Entitic vol] 50.4 fL 35.1-43.9 [facility] Erythrocyte distribution width (RBC) [Ratio] 15.0 % 11.6-14.6 [facility] Immature granulocytes/100 WBC (Bld) 0.400 % 0.0-0.9 [facility] Comment on above: IG% - Immature Granu locytes (promyelocytes, myelocytes and metamyelocytes) > 1% indicates that a LEFT SHIFT is Present. MCH (RBC) [Entitic mass] 27.1 pg 27.0-32.0 [facility] Nucleated RBC/100 WBC (Bld) [Ratio] 0 % 0-5 [facility] MCHC Auto (RBC) [Mass/Vol]Or dered By: Breanne Ruiz on 05-17-2022 MCHC (RBC) [Mass/Vol] 29.7 g/dL 32-36 [facility] No Panel InformationOrdered By: Breanne Ruiz on 05-17-2022 Estimated GFR (MDRD) Amer 116 mL/min >60 [facility] Comment on above: GFR Calc Estimated GFR (MDRD) Non-Af Amer 95 mL/min >60 [facility] Comment on above: Non- GFR Calc Platelets bldOrdered By: Prashantbeverly marsh Sara on 05-17-2022 Platelets (Bld) [#/Vol] 503 10*3/uL 150-450 [facility] Serum or plasma calcium jj urement (mass/volume)Ordered By: Breanne Ruiz on 05-17-2022 Calcium [Mass/Vol] 9.7 mg/dL 8.5-10.1 [facility] Serum or plasma creatinine m easurement (mass/volume)Ordered By: Breanne Ruiz on 05-17-2022 Creatinine [Mass/Vol] 0.66 mg/dL 0.55-1.02 [facility] Comment on above: The validity of the calculated GFR & GFRAA in patients over 70 years has not been determined. Clinical correlation is essential. Serum or plasma urea nitroge n measurement (mass/volume)Ordered By: Abbieolallachetan Ruiz on 05-17-2022 Urea nitrogen [Mass/Vol] 30 mg/dL 7-18 [facility] Thin prep Papanicolaou smear with manual screeningOrdered By: Breanne Ruiz on 05-17-2022 Thin prep Papanicolaou smear with manual screening 8 5-15 [facility] Absolute lymphocyte countOrd ered By: Asad Jamison on 05-03-2022 Lymphocytes Auto (Unsp spec) [#/Vol] 1.95 10*3/uL 0.83-4.51 [facility] Basophil percentageOrdered B y: Asad Jamison on 05-03-2022 Basophils/100 WBC (Bld) 0.9 % 0-1 [facility] Chloride [Moles/Vol] 103 mmol/L 98-107 [facility] Eosinophils/100 WBC (Bld) 3.9 % 0-5 [facility] Glucose [Mass/Vol] 100 mg/dL 74-106 [facility] Comment on above: Fasting Glucose resu lt from 100 to 125 mg/dL suggests IMPAIRED HOMEOSTASIS per A.D.A. criteria. Neutrophils (Bld) [#/Vol] 6.6 10*3/uL 2.0-7.7 [facility] Neutrophils/100 WBC (Bld) 66.2 % 47-70 [facility] Potassium [Moles/Vol] 4.1 mmol/L 3.5-5.1 [facility] Comment on above: Moderate Hemolysis, Result may be falsely increased. Sodium [Moles/Vol] 139 mmol/L 136-145 [facility] WBC (Bld) [#/Vol] 10.0 10*3/uL 4.4-11.0 [facility] Blood erythrocytes count (nu mber/volume)Ordered By: Asad Jamison on 05-03-2022 RBC (Bld) [#/Vol] 4.77 10*6/uL 4.2-5.4 [facility] Blood hemoglobin measurement (mass/volume)Ordered By: Asad Jamison on 05-03-2022 Hemoglobin (Bld) [Mass/Vol] 13.2 g/dL 12.0-15.0 [facility] Blood lymphocytes/100 leukoc ytesOrdered By: Asad Jamison on 05-03-2022 Lymphocytes/100 WBC (Bld) 19.5 % 19-41 [facility] Blood monocytes/100 leukocyt esOrdered By: Asad Jamison on 05-03-2022 Monocytes/100 WBC (Bld) 8.9 % 0-10 [facility] Blood platelet mean volumeOr dered By: Asad Jamison on 05-03-2022 Platelet mean volume (Bld) [Entitic vol] 8.9 fL 6.2-12.0 [facility] Determination of erythrocyte mean corpuscular volume (MCV)Ordered By: Asad Jamison on 05-03-2022 MCV (RBC) [Entitic vol] 88.5 fL 81-99 [facility] Hematocrit Auto (Bld) [Volum e fraction]Ordered By: Asad Jamison on 05-03-2022 Hematocrit (Bld) [Volume fraction] 42.2 % 37-47 [facility] Laboratory - Chemistry and C hemistry - challengeOrdered By: Asad Jamison on 05-03-2022 CO2 [Moles/Vol] 25.0 mmol/L 21.0-32.0 [facility] Urea nitrogen/Creatinine [Mass ratio] 48.2 mg/mg 10-20 [facility] Laboratory - Hematology and Cell countsOrdered By: Asad Jamison on 05-03-2022 Erythrocyte distribution width (RBC) [Entitic vol] 48.7 fL 35.1-43.9 [facility] Erythrocyte distribution width (RBC) [Ratio] 15.0 % 11.6-14.6 [facility] Immature granulocytes/100 WBC (Bld) 0.600 % 0.0-0.9 [facility] Comment on above: IG% - Immature Granu locytes (promyelocytes, myelocytes and metamyelocytes) > 1% indicates that a LEFT SHIFT is Present. MCH (RBC) [Entitic mass] 27.7 pg 27.0-32.0 [facility] Nucleated RBC/100 WBC (Bld) [Ratio] 0 % 0-5 [facility] MCHC Auto (RBC) [Mass/Vol]Or dered By: Asad Jamison on 05-03-2022 MCHC (RBC) [Mass/Vol] 31.3 g/dL 32-36 [facility] No Panel InformationOrdered By: Asad Jamison on 05-03-2022 Estimated GFR (MDRD) Amer 129 mL/min >60 [facility] Comment on above: GFR Calc Estimated GFR (MDRD) Non-Af Amer 107 mL/min >60 [facility] Comment on above: Non- GFR Calc Platelets bldOrdered By: Gonzales Jamison on 05-03-2022 Platelets (Bld) [#/Vol] 488 10*3/uL 150-450 [facility] Serum or plasma calcium jj urement (mass/volume)Ordered By: Asad Jamison on 05-03-2022 Calcium [Mass/Vol] 9.4 mg/dL 8.5-10.1 [facility] Serum or plasma creatinine m easurement (mass/volume)Ordered By: Asad Jamison on 05-03-2022 Creatinine [Mass/Vol] 0.60 mg/dL 0.55-1.02 [facility] Comment on above: The validity of the calculated GFR & GFRAA in patients over 70 years has not been determined. Clinical correlation is essential. Serum or plasma urea nitroge n measurement (mass/volume)Ordered By: Asad Jamison on 05-03-2022 Urea nitrogen [Mass/Vol] 29 mg/dL 7-18 [facility] Thin prep Papanicolaou smear with manual screeningOrdered By: Asad Jamison on 05-03-2022 Thin prep Papanicolaou smear with manual screening 11 -15 [facility] Absolute lymphocyte countOrd ered By: Asad Jamison on 04-19-2022 Lymphocytes Auto (Unsp spec) [#/Vol] 1.80 10*3/uL 0.83-4.51 [facility] Basophil percentageOrdered B y: Asad Jamison on 04-19-2022 Basophils/100 WBC (Bld) 1.0 % 0-1 [facility] Chloride [Moles/Vol] 106 mmol/L 98-107 [facility] Eosinophils/100 WBC (Bld) 3.6 % 0-5 [facility] Glucose [Mass/Vol] 107 mg/dL 74-106 [facility] Comment on above: Fasting Glucose resu lt from 100 to 125 mg/dL suggests IMPAIRED HOMEOSTASIS per A.D.A. criteria. Neutrophils (Bld) [#/Vol] 4.6 10*3/uL 2.0-7.7 [facility] Neutrophils/100 WBC (Bld) 59.3 % 47-70 [facility] Potassium [Moles/Vol] 4.1 mmol/L 3.5-5.1 [facility] Sodium [Moles/Vol] 140 mmol/L 136-145 [facility] WBC (Bld) [#/Vol] 7.8 10*3/uL 4.4-11.0 [facility] Blood erythrocytes count (nu mber/volume)Ordered By: Asad Jamison on 04-19-2022 RBC (Bld) [#/Vol] 4.98 10*6/uL 4.2-5.4 [facility] Blood hemoglobin measurement (mass/volume)Ordered By: Asad Jamison on 04-19-2022 Hemoglobin (Bld) [Mass/Vol] 13.1 g/dL 12.0-15.0 [facility] Blood lymphocytes/100 leukoc ytesOrdered By: Asad Jamison on 04-19-2022 Lymphocytes/100 WBC (Bld) 23.1 % 19-41 [facility] Blood monocytes/100 leukocyt esOrdered By: Asad Jamison on 04-19-2022 Monocytes/100 WBC (Bld) 12.1 % 0-10 [facility] Blood platelet mean volumeOr dered By: Asad Jamison on 04-19-2022 Platelet mean volume (Bld) [Entitic vol] 8.9 fL 6.2-12.0 [facility] Determination of erythrocyte mean corpuscular volume (MCV)Ordered By: Asad Jamison on 04-19-2022 MCV (RBC) [Entitic vol] 88.0 fL 81-99 [facility] Hematocrit Auto (Bld) [Volum e fraction]Ordered By: Asad Jamison on 04-19-2022 Hematocrit (Bld) [Volume fraction] 43.8 % 37-47 [facility] Laboratory - Chemistry and C hemistry - challengeOrdered By: Asad Jamison on 04-19-2022 CO2 [Moles/Vol] 27.0 mmol/L 21.0-32.0 [facility] Urea nitrogen/Creatinine [Mass ratio] 43.6 mg/mg 10-20 [facility] Laboratory - Hematology and Cell countsOrdered By: Asad Jamison on 04-19-2022 Erythrocyte distribution width (RBC) [Entitic vol] 48.2 fL 35.1-43.9 [facility] Erythrocyte distribution width (RBC) [Ratio] 15.0 % 11.6-14.6 [facility] Immature granulocytes/100 WBC (Bld) 0.900 % 0.0-0.9 [facility] Comment on above: IG% - Immature Granu locytes (promyelocytes, myelocytes and metamyelocytes) > 1% indicates that a LEFT SHIFT is Present. MCH (RBC) [Entitic mass] 26.3 pg 27.0-32.0 [facility] Nucleated RBC/100 WBC (Bld) [Ratio] 0 % 0-5 [facility] MCHC Auto (RBC) [Mass/Vol]Or dered By: Asad Jamison on 04-19-2022 MCHC (RBC) [Mass/Vol] 29.9 g/dL 32-36 [facility] No Panel InformationOrdered By: Asad Jamison on 04-19-2022 Estimated GFR (MDRD) Amer 130 mL/min >60 [facility] Comment on above: GFR Calc Estimated GFR (MDRD) Non-Af Amer 108 mL/min >60 [facility] Comment on above: Non- GFR Calc Platelets bldOrdered By: Gonzales Jamison on 04-19-2022 Platelets (Bld) [#/Vol] 534 10*3/uL 150-450 [facility] Serum or plasma calcium jj urement (mass/volume)Ordered By: Asad Jamison on 04-19-2022 Calcium [Mass/Vol] 9.6 mg/dL 8.5-10.1 [facility] Serum or plasma creatinine m easurement (mass/volume)Ordered By: Asad Jamison on 04-19-2022 Creatinine [Mass/Vol] 0.60 mg/dL 0.55-1.02 [facility] Comment on above: The validity of the calculated GFR & GFRAA in patients over 70 years has not been determined. Clinical correlation is essential. Serum or plasma urea nitroge n measurement (mass/volume)Ordered By: Asad Jamison on 04-19-2022 Urea nitrogen [Mass/Vol] 26 mg/dL 7-18 [facility] Thin prep Papanicolaou smear with manual screeningOrdered By: Asad Jamison on 04-19-2022 Thin prep Papanicolaou smear with manual screening 7 5-15 [facility] Absolute lymphocyte countOrd ered By: Asad Jamison on 04-05-2022 Lymphocytes Auto (Unsp spec) [#/Vol] 1.31 10*3/uL 0.83-4.51 [facility] Basophil percentageOrdered B y: Asad Jamison on 04-05-2022 Basophils/100 WBC (Bld) 1.0 % 0-1 [facility] Chloride [Moles/Vol] 108 mmol/L 98-107 [facility] Eosinophils/100 WBC (Bld) 3.6 % 0-5 [facility] Glucose [Mass/Vol] 105 mg/dL 74-106 [facility] Comment on above: Fasting Glucose resu lt from 100 to 125 mg/dL suggests IMPAIRED HOMEOSTASIS per A.D.A. criteria. Neutrophils (Bld) [#/Vol] 6.1 10*3/uL 2.0-7.7 [facility] Neutrophils/100 WBC (Bld) 68.9 % 47-70 [facility] Potassium [Moles/Vol] 4.0 mmol/L 3.5-5.1 [facility] Sodium [Moles/Vol] 141 mmol/L 136-145 [facility] WBC (Bld) [#/Vol] 8.9 10*3/uL 4.4-11.0 [facility] Blood erythrocytes count (nu mber/volume)Ordered By: Asad Jamison on 04-05-2022 RBC (Bld) [#/Vol] 4.79 10*6/uL 4.2-5.4 [facility] Blood hemoglobin measurement (mass/volume)Ordered By: Asad Jamison on 04-05-2022 Hemoglobin (Bld) [Mass/Vol] 13.0 g/dL 12.0-15.0 [facility] Blood lymphocytes/100 leukoc ytesOrdered By: Asad Jamison on 04-05-2022 Lymphocytes/100 WBC (Bld) 14.7 % 19-41 [facility] Blood monocytes/100 leukocyt esOrdered By: Asad Jamison on 04-05-2022 Monocytes/100 WBC (Bld) 11.4 % 0-10 [facility] Blood platelet mean volumeOr dered By: Asad Jamison on 04-05-2022 Platelet mean volume (Bld) [Entitic vol] 8.7 fL 6.2-12.0 [facility] Determination of erythrocyte mean corpuscular volume (MCV)Ordered By: Asad Jamison on 04-05-2022 MCV (RBC) [Entitic vol] 87.9 fL 81-99 [facility] Hematocrit Auto (Bld) [Volum e fraction]Ordered By: Asad Jamison on 04-05-2022 Hematocrit (Bld) [Volume fraction] 42.1 % 37-47 [facility] Laboratory - Chemistry and C hemistry - challengeOrdered By: Asad Jamison on 04-05-2022 CO2 [Moles/Vol] 27.0 mmol/L 21.0-32.0 [facility] Urea nitrogen/Creatinine [Mass ratio] 44.3 mg/mg 10-20 [facility] Laboratory - Hematology and Cell countsOrdered By: Asad Jamison on 04-05-2022 Erythrocyte distribution width (RBC) [Entitic vol] 49.4 fL 35.1-43.9 [facility] Erythrocyte distribution width (RBC) [Ratio] 15.3 % 11.6-14.6 [facility] Immature granulocytes/100 WBC (Bld) 0.400 % 0.0-0.9 [facility] Comment on above: IG% - Immature Granu locytes (promyelocytes, myelocytes and metamyelocytes) > 1% indicates that a LEFT SHIFT is Present. MCH (RBC) [Entitic mass] 27.1 pg 27.0-32.0 [facility] Nucleated RBC/100 WBC (Bld) [Ratio] 0 % 0-5 [facility] MCHC Auto (RBC) [Mass/Vol]Or dered By: Asad Jamison on 04-05-2022 MCHC (RBC) [Mass/Vol] 30.9 g/dL 32-36 [facility] No Panel InformationOrdered By: Asad Jamison on 04-05-2022 Estimated GFR (MDRD) Amer 127 mL/min >60 [facility] Comment on above: GFR Calc Estimated GFR (MDRD) Non-Af Amer 105 mL/min >60 [facility] Comment on above: Non- GFR Calc Platelets bldOrdered By: Gonzales Jamison on 04-05-2022 Platelets (Bld) [#/Vol] 516 10*3/uL 150-450 [facility] Serum or plasma calcium jj urement (mass/volume)Ordered By: Asad Jamison on 04-05-2022 Calcium [Mass/Vol] 9.6 mg/dL 8.5-10.1 [facility] Serum or plasma creatinine m easurement (mass/volume)Ordered By: Asad Jamison on 04-05-2022 Creatinine [Mass/Vol] 0.61 mg/dL 0.55-1.02 [facility] Comment on above: The validity of the calculated GFR & GFRAA in patients over 70 years has not been determined. Clinical correlation is essential. Serum or plasma urea nitroge n measurement (mass/volume)Ordered By: Asad Jamison on 04-05-2022 Urea nitrogen [Mass/Vol] 27 mg/dL 7-18 [facility] Thin prep Papanicolaou smear with manual screeningOrdered By: Asad Jamison on 04-05-2022 Thin prep Papanicolaou smear with manual screening 6 5-15 [facility] Absolute lymphocyte countOrd ered By: Asad Jamison on 03-22-2022 Lymphocytes Auto (Unsp spec) [#/Vol] 1.60 10*3/uL 0.83-4.51 [facility] Basophil percentageOrdered B y: Asad Jamison on 03-22-2022 Basophils/100 WBC (Bld) 1.1 % 0-1 [facility] Chloride [Moles/Vol] 108 mmol/L 98-107 [facility] Eosinophils/100 WBC (Bld) 2.9 % 0-5 [facility] Glucose [Mass/Vol] 96 mg/dL 74-106 [facility] Neutrophils (Bld) [#/Vol] 5.1 10*3/uL 2.0-7.7 [facility] Neutrophils/100 WBC (Bld) 65.2 % 47-70 [facility] Potassium [Moles/Vol] 4.1 mmol/L 3.5-5.1 [facility] Sodium [Moles/Vol] 142 mmol/L 136-145 [facility] WBC (Bld) [#/Vol] 7.9 10*3/uL 4.4-11.0 [facility] Blood erythrocytes count (nu mber/volume)Ordered By: Asad Jamison on 03-22-2022 RBC (Bld) [#/Vol] 4.84 10*6/uL 4.2-5.4 [facility] Blood hemoglobin measurement (mass/volume)Ordered By: Asad Jamison on 03-22-2022 Hemoglobin (Bld) [Mass/Vol] 13.1 g/dL 12.0-15.0 [facility] Blood lymphocytes/100 leukoc ytesOrdered By: Asad Jamison on 03-22-2022 Lymphocytes/100 WBC (Bld) 20.3 % 19-41 [facility] Blood monocytes/100 leukocyt esOrdered By: Asad Jamison on 03-22-2022 Monocytes/100 WBC (Bld) 10.2 % 0-10 [facility] Blood platelet mean volumeOr dered By: Asad Jamison on 03-22-2022 Platelet mean volume (Bld) [Entitic vol] 9.1 fL 6.2-12.0 [facility] Determination of erythrocyte mean corpuscular volume (MCV)Ordered By: Asad Jamison on 03-22-2022 MCV (RBC) [Entitic vol] 87.8 fL 81-99 [facility] Hematocrit Auto (Bld) [Volum e fraction]Ordered By: Asad Jamison on 03-22-2022 Hematocrit (Bld) [Volume fraction] 42.5 % 37-47 [facility] Laboratory - Chemistry and C hemistry - challengeOrdered By: Asad Jamison on 03-22-2022 CO2 [Moles/Vol] 26.0 mmol/L 21.0-32.0 [facility] Urea nitrogen/Creatinine [Mass ratio] 34.4 mg/mg 10-20 [facility] Laboratory - Hematology and Cell countsOrdered By: Asad Jamison on 03-22-2022 Erythrocyte distribution width (RBC) [Entitic vol] 48.4 fL 35.1-43.9 [facility] Erythrocyte distribution width (RBC) [Ratio] 15.0 % 11.6-14.6 [facility] Immature granulocytes/100 WBC (Bld) 0.300 % 0.0-0.9 [facility] Comment on above: IG% - Immature Granu locytes (promyelocytes, myelocytes and metamyelocytes) > 1% indicates that a LEFT SHIFT is Present. MCH (RBC) [Entitic mass] 27.1 pg 27.0-32.0 [facility] Nucleated RBC/100 WBC (Bld) [Ratio] 0 % 0-5 [facility] MCHC Auto (RBC) [Mass/Vol]Or dered By: Asad Jamison on 03-22-2022 MCHC (RBC) [Mass/Vol] 30.8 g/dL 32-36 [facility] No Panel InformationOrdered By: Asad Jamison on 03-22-2022 Estimated GFR (MDRD) Amer 120 mL/min >60 [facility] Comment on above: GFR Calc Estimated GFR (MDRD) Non-Af Amer 99 mL/min >60 [facility] Comment on above: Non- GFR Calc Platelets bldOrdered By: Gonzales Jamison on 03-22-2022 Platelets (Bld) [#/Vol] 522 10*3/uL 150-450 [facility] Serum or plasma calcium jj urement (mass/volume)Ordered By: Asad Jamison on 03-22-2022 Calcium [Mass/Vol] 9.4 mg/dL 8.5-10.1 [facility] Serum or plasma creatinine m easurement (mass/volume)Ordered By: Asad Jamison on 03-22-2022 Creatinine [Mass/Vol] 0.64 mg/dL 0.55-1.02 [facility] Comment on above: The validity of the calculated GFR & GFRAA in patients over 70 years has not been determined. Clinical correlation is essential. Serum or plasma urea nitroge n measurement (mass/volume)Ordered By: Asad Jamison on 03-22-2022 Urea nitrogen [Mass/Vol] 22 mg/dL 7-18 [facility] Thin prep Papanicolaou smear with manual screeningOrdered By: Asad Jamison on 03-22-2022 Thin prep Papanicolaou smear with manual screening 8 5-15 [facility] Absolute lymphocyte countOrd ered By: Asad Jamison on 03-08-2022 Lymphocytes Auto (Unsp spec) [#/Vol] 1.49 10*3/uL 0.83-4.51 [facility] Basophil percentageOrdered B y: Asad Jamison on 03-08-2022 Basophils/100 WBC (Bld) 1.3 % 0-1 [facility] Chloride [Moles/Vol] 108 mmol/L 98-107 [facility] Eosinophils/100 WBC (Bld) 3.9 % 0-5 [facility] Glucose [Mass/Vol] 105 mg/dL 74-106 [facility] Comment on above: Fasting Glucose resu lt from 100 to 125 mg/dL suggests IMPAIRED HOMEOSTASIS per A.D.A. criteria. Neutrophils (Bld) [#/Vol] 4.3 10*3/uL 2.0-7.7 [facility] Neutrophils/100 WBC (Bld) 61.3 % 47-70 [facility] Potassium [Moles/Vol] 4.1 mmol/L 3.5-5.1 [facility] Sodium [Moles/Vol] 142 mmol/L 136-145 [facility] WBC (Bld) [#/Vol] 7.1 10*3/uL 4.4-11.0 [facility] Blood erythrocytes count (nu mber/volume)Ordered By: Asad Jamison on 03-08-2022 RBC (Bld) [#/Vol] 4.87 10*6/uL 4.2-5.4 [facility] Blood hemoglobin measurement (mass/volume)Ordered By: Asad Jamison on 03-08-2022 Hemoglobin (Bld) [Mass/Vol] 13.0 g/dL 12.0-15.0 [facility] Blood lymphocytes/100 leukoc ytesOrdered By: Asad Jamison on 03-08-2022 Lymphocytes/100 WBC (Bld) 21.0 % 19-41 [facility] Blood monocytes/100 leukocyt esOrdered By: Asad Jamison on 03-08-2022 Monocytes/100 WBC (Bld) 12.1 % 0-10 [facility] Blood platelet mean volumeOr dered By: Asad Jamison on 03-08-2022 Platelet mean volume (Bld) [Entitic vol] 8.9 fL 6.2-12.0 [facility] Determination of erythrocyte mean corpuscular volume (MCV)Ordered By: Asad Jamison on 03-08-2022 MCV (RBC) [Entitic vol] 87.9 fL 81-99 [facility] Hematocrit Auto (Bld) [Volum e fraction]Ordered By: Asad Jamison on 03-08-2022 Hematocrit (Bld) [Volume fraction] 42.8 % 37-47 [facility] Laboratory - Chemistry and C hemistry - challengeOrdered By: Asad Jamison on 03-08-2022 CO2 [Moles/Vol] 27.0 mmol/L 21.0-32.0 [facility] Urea nitrogen/Creatinine [Mass ratio] 47.1 mg/mg 10-20 [facility] Laboratory - Hematology and Cell countsOrdered By: Asad Jamison on 03-08-2022 Erythrocyte distribution width (RBC) [Entitic vol] 47.6 fL 35.1-43.9 [facility] Erythrocyte distribution width (RBC) [Ratio] 14.8 % 11.6-14.6 [facility] Immature granulocytes/100 WBC (Bld) 0.400 % 0.0-0.9 [facility] Comment on above: IG% - Immature Granu locytes (promyelocytes, myelocytes and metamyelocytes) > 1% indicates that a LEFT SHIFT is Present. MCH (RBC) [Entitic mass] 26.7 pg 27.0-32.0 [facility] Nucleated RBC/100 WBC (Bld) [Ratio] 0 % 0-5 [facility] MCHC Auto (RBC) [Mass/Vol]Or dered By: Asad Jamison on 03-08-2022 MCHC (RBC) [Mass/Vol] 30.4 g/dL 32-36 [facility] No Panel InformationOrdered By: Asad Jamison on 03-08-2022 Estimated GFR (MDRD) Amer 131 mL/min >60 [facility] Comment on above: GFR Calc Estimated GFR (MDRD) Non-Af Amer 108 mL/min >60 [facility] Comment on above: Non- GFR Calc Platelets bldOrdered By: Gonzales Jamison on 03-08-2022 Platelets (Bld) [#/Vol] 521 10*3/uL 150-450 [facility] Serum or plasma calcium jj urement (mass/volume)Ordered By: Asad Jamison on 03-08-2022 Calcium [Mass/Vol] 9.5 mg/dL 8.5-10.1 [facility] Serum or plasma creatinine m easurement (mass/volume)Ordered By: Asad Jamison on 03-08-2022 Creatinine [Mass/Vol] 0.59 mg/dL 0.55-1.02 [facility] Comment on above: The validity of the calculated GFR & GFRAA in patients over 70 years has not been determined. Clinical correlation is essential. Serum or plasma urea nitroge n measurement (mass/volume)Ordered By: Asad Jamison on 03-08-2022 Urea nitrogen [Mass/Vol] 28 mg/dL 7-18 [facility] Thin prep Papanicolaou smear with manual screeningOrdered By: Asad Jamison on 03-08-2022 Thin prep Papanicolaou smear with manual screening 7 5-15 [facility] Absolute lymphocyte countOrd ered By: Asad Jamison on 02-22-2022 Lymphocytes Auto (Unsp spec) [#/Vol] 1.48 10*3/uL 0.83-4.51 [facility] Basophil percentageOrdered B y: Asad Jamison on 02-22-2022 Basophils/100 WBC (Bld) 1.2 % 0-1 [facility] Chloride [Moles/Vol] 109 mmol/L 98-107 [facility] Eosinophils/100 WBC (Bld) 5.9 % 0-5 [facility] Glucose [Mass/Vol] 103 mg/dL 74-106 [facility] Comment on above: Fasting Glucose resu lt from 100 to 125 mg/dL suggests IMPAIRED HOMEOSTASIS per A.D.A. criteria. Neutrophils (Bld) [#/Vol] 4.1 10*3/uL 2.0-7.7 [facility] Neutrophils/100 WBC (Bld) 58.7 % 47-70 [facility] Potassium [Moles/Vol] 4.3 mmol/L 3.5-5.1 [facility] Sodium [Moles/Vol] 143 mmol/L 136-145 [facility] WBC (Bld) [#/Vol] 6.9 10*3/uL 4.4-11.0 [facility] Blood erythrocytes count (nu mber/volume)Ordered By: Asad Jamison on 02-22-2022 RBC (Bld) [#/Vol] 4.90 10*6/uL 4.2-5.4 [facility] Blood hemoglobin measurement (mass/volume)Ordered By: Asad Jamison on 02-22-2022 Hemoglobin (Bld) [Mass/Vol] 13.1 g/dL 12.0-15.0 [facility] Blood lymphocytes/100 leukoc ytesOrdered By: Asad Jamison on 02-22-2022 Lymphocytes/100 WBC (Bld) 21.4 % 19-41 [facility] Blood monocytes/100 leukocyt esOrdered By: Asad Jamison on 02-22-2022 Monocytes/100 WBC (Bld) 12.4 % 0-10 [facility] Blood platelet mean volumeOr dered By: Asad Jamison on 02-22-2022 Platelet mean volume (Bld) [Entitic vol] 9.0 fL 6.2-12.0 [facility] Determination of erythrocyte mean corpuscular volume (MCV)Ordered By: Asad Jamison on 02-22-2022 MCV (RBC) [Entitic vol] 88.2 fL 81-99 [facility] Hematocrit Auto (Bld) [Volum e fraction]Ordered By: Asad Jamison on 02-22-2022 Hematocrit (Bld) [Volume fraction] 43.2 % 37-47 [facility] Laboratory - Chemistry and C hemistry - challengeOrdered By: Asad Jamison on 02-22-2022 CO2 [Moles/Vol] 25.0 mmol/L 21.0-32.0 [facility] Urea nitrogen/Creatinine [Mass ratio] 48.9 mg/mg - [facility] Laboratory - Hematology and Cell countsOrdered By: Asad Jamison on 02-22-2022 Erythrocyte distribution width (RBC) [Entitic vol] 48.8 fL 35.1-43.9 [facility] Erythrocyte distribution width (RBC) [Ratio] 15.1 % 11.6-14.6 [facility] Immature granulocytes/100 WBC (Bld) 0.400 % 0.0-0.9 [facility] Comment on above: IG% - Immature Granu locytes (promyelocytes, myelocytes and metamyelocytes) > 1% indicates that a LEFT SHIFT is Present. MCH (RBC) [Entitic mass] 26.7 pg 27.0-32.0 [facility] Nucleated RBC/100 WBC (Bld) [Ratio] 0 % 0-5 [facility] MCHC Auto (RBC) [Mass/Vol]Or dered By: Asad Jamison on 02-22-2022 MCHC (RBC) [Mass/Vol] 30.3 g/dL 32-36 [facility] No Panel InformationOrdered By: Asad Jamison on 02-22-2022 Estimated GFR (MDRD) Amer 126 mL/min >60 [facility] Comment on above: GFR Calc Estimated GFR (MDRD) Non-Af Amer 104 mL/min >60 [facility] Comment on above: Non- GFR Calc Platelets bldOrdered By: Gonzales Jamison on 02-22-2022 Platelets (Bld) [#/Vol] 492 10*3/uL 150-450 [facility] Serum or plasma calcium jj urement (mass/volume)Ordered By: Asad Jamison on 02-22-2022 Calcium [Mass/Vol] 9.7 mg/dL 8.5-10.1 [facility] Serum or plasma creatinine m easurement (mass/volume)Ordered By: Asad Jamison on 02-22-2022 Creatinine [Mass/Vol] 0.61 mg/dL 0.55-1.02 [facility] Comment on above: The validity of the calculated GFR & GFRAA in patients over 70 years has not been determined. Clinical correlation is essential. Serum or plasma urea nitroge n measurement (mass/volume)Ordered By: Asad Jamison on 02-22-2022 Urea nitrogen [Mass/Vol] 30 mg/dL 7-18 [facility] Thin prep Papanicolaou smear with manual screeningOrdered By: Asad Jamison on 02-22-2022 Thin prep Papanicolaou smear with manual screening 9 5-15 [facility] Absolute lymphocyte counton 02-08-2022 Lymphocytes Auto (Unsp spec) [#/Vol] 1.37 10*3/uL 0.83-4.51 [facility] Work Phone: Basophil percentageon 2021 Basophils/100 WBC (Bld) 1.3 % 0-1 [facility] Work Phone: Chloride [Moles/Vol] 109 mmol/L 98-107 [facility] Work Phone: Eosinophils/100 WBC (Bld) 4.0 % 0-5 [facility] Work Phone: Glucose [Mass/Vol] 99 mg/dL 74-106 [facility] Work Phone: Neutrophils (Bld) [#/Vol] 4.1 10*3/uL 2.0-7.7 [facility] Work Phone: Neutrophils/100 WBC (Bld) 59.3 % 47-70 [facility] Work Phone: Potassium [Moles/Vol] 4.1 mmol/L 3.5-5.1 [facility] Work Phone: Sodium [Moles/Vol] 143 mmol/L 136-145 [facility] Work Phone: WBC (Bld) [#/Vol] 7.0 10*3/uL 4.4-11.0 [facility] Work Phone: Blood erythrocytes count (nu mber/volume)on 02-08-2022 RBC (Bld) [#/Vol] 5.00 10*6/uL 4.2-5.4 [facility] Work Phone: Blood hemoglobin measurement (mass/volume)on 02-08-2022 Hemoglobin (Bld) [Mass/Vol] 13.0 g/dL 12.0-15.0 [facility] Work Phone: Blood lymphocytes/100 leukoc yteson 02-08-2022 Lymphocytes/100 WBC (Bld) 19.7 % 19-41 [facility] Work Phone: [phone] Blood monocytes/100 leukocyt eson 02-08-2022 Monocytes/100 WBC (Bld) 15.4 % 0-10 [facility] Work Phone: [phone] Blood platelet mean volumeon 02-08-2022 Platelet mean volume (Bld) [Entitic vol] 8.6 fL 6.2-12.0 [facility] Work Phone: Determination of erythrocyte mean corpuscular volume (MCV)on 02-08-2022 MCV (RBC) [Entitic vol] 92.4 fL 81-99 [facility] Work Phone: [phone] Hematocrit Auto (Bld) [Volum e fraction]on 02-08-2022 Hematocrit (Bld) [Volume fraction] 46.2 % 37-47 [facility] Work Phone: Laboratory - Chemistry and C hemistry - challengeon 02-08-2022 CO2 [Moles/Vol] 24.0 mmol/L 21.0-32.0 [facility] Work Phone: Urea nitrogen/Creatinine [Mass ratio] 38.5 mg/mg 10-20 [facility] Work Phone: [phone] Laboratory - Hematology and Cell countson 02-08-2022 Erythrocyte distribution width (RBC) [Entitic vol] 51.8 fL 35.1-43.9 [facility] Work Phone: [phone] Erythrocyte distribution width (RBC) [Ratio] 15.3 % 11.6-14.6 [facility] Work Phone: [phone] Immature granulocytes/100 WBC (Bld) 0.300 % 0.0-0.9 [facility] Work Phone: Comment on above: IG% - Immature Granu locytes (promyelocytes, myelocytes and metamyelocytes) > 1% indicates that a LEFT SHIFT is Present. MCH (RBC) [Entitic mass] 26.0 pg 27.0-32.0 [facility] Work Phone: Nucleated RBC/100 WBC (Bld) [Ratio] 0 % 0-5 [facility] Work Phone: MCHC Auto (RBC) [Mass/Vol]on 02-08-2022 MCHC (RBC) [Mass/Vol] 28.1 g/dL 32-36 [facility] Work Phone: No Panel Informationon 02-08 Estimated GFR (MDRD) Amer 118 mL/min >60 [facility] Work Phone: Comment on above: GFR Calc Estimated GFR (MDRD) Non-Af Amer 98 mL/min >60 [facility] Work Phone: Comment on above: Non- GFR Calc Platelets bldon 02-08-2022 Platelets (Bld) [#/Vol] 504 10*3/uL 150-450 [facility] Work Phone: [phone] Serum or plasma calcium jj urement (mass/volume)on 02-08-2022 Calcium [Mass/Vol] 10.0 mg/dL 8.5-10.1 [facility] Work Phone: Serum or plasma creatinine m easurement (mass/volume)on 02-08-2022 Creatinine [Mass/Vol] 0.65 mg/dL 0.55-1.02 [facility] Work Phone: Comment on above: The validity of the calculated GFR & GFRAA in patients over 70 years has not been determined. Clinical correlation is essential. Serum or plasma urea nitroge n measurement (mass/volume)on 02-08-2022 Urea nitrogen [Mass/Vol] 25 mg/dL 7-18 [facility] Work Phone: [phone] Thin prep Papanicolaou smear with manual screeningon 02-08-2022 Thin prep Papanicolaou smear with manual screening 10 5-15 [facility] Work Phone: [phone] Absolute lymphocyte counton 01-25-2022 Lymphocytes Auto (Unsp spec) [#/Vol] 1.61 10*3/uL 0.83-4.51 [facility] Work Phone: Basophil percentageon 2021 Basophils/100 WBC (Bld) 1.6 % 0-1 [facility] Work Phone: Chloride [Moles/Vol] 110 mmol/L 98-107 [facility] Work Phone: Eosinophils/100 WBC (Bld) 3.6 % 0-5 [facility] Work Phone: Glucose [Mass/Vol] 109 mg/dL 74-106 [facility] Work Phone: Comment on above: Fasting Glucose resu lt from 100 to 125 mg/dL suggests IMPAIRED HOMEOSTASIS per A.D.A. criteria. Neutrophils (Bld) [#/Vol] 3.8 10*3/uL 2.0-7.7 [facility] Work Phone: Neutrophils/100 WBC (Bld) 55.5 % 47-70 [facility] Work Phone: Potassium [Moles/Vol] 4.0 mmol/L 3.5-5.1 [facility] Work [facility]: Sodium [Moles/Vol] 142 mmol/L 136-145 [facility] Work Phone: WBC (Bld) [#/Vol] 6.9 10*3/uL 4.4-11.0 [facility] Work Phone: Blood erythrocytes count (nu mber/volume)on 01-25-2022 RBC (Bld) [#/Vol] 4.66 10*6/uL 4.2-5.4 [facility] Work Phone: Blood hemoglobin measurement (mass/volume)on 01-25-2022 Hemoglobin (Bld) [Mass/Vol] 12.5 g/dL 12.0-15.0 [facility] Work Phone: Blood lymphocytes/100 leukoc yteson 08-23-2022 Lymphocytes/100 WBC (Bld) 23.4 % 19-41 [facility] Work Phone: Blood monocytes/100 leukocyt eson 01-25-2022 Monocytes/100 WBC (Bld) 15.3 % 0-10 [facility] Work Phone: Blood platelet mean volumeon 01-25-2022 Platelet mean volume (Bld) [Entitic vol] 9.0 fL 6.2-12.0 [facility] Work Phone: Determination of erythrocyte mean corpuscular volume (MCV)on 01-25-2022 MCV (RBC) [Entitic vol] 88.6 fL 81-99 [facility] Work Phone: [phone] Hematocrit Auto (Bld) [Volum e fraction]on 01-25-2022 Hematocrit (Bld) [Volume fraction] 41.3 % 37-47 [facility] Work Phone: Laboratory - Chemistry and C hemistry - challengeon 01-25-2022 CO2 [Moles/Vol] 23.0 mmol/L 21.0-32.0 [facility] Work Phone: Urea nitrogen/Creatinine [Mass ratio] 38.3 mg/mg 10-20 [facility] Work Phone: Laboratory - Hematology and Cell countson 01-25-2022 Erythrocyte distribution width (RBC) [Entitic vol] 49.9 fL 35.1-43.9 [facility] Work Phone: [phone] Erythrocyte distribution width (RBC) [Ratio] 15.4 % 11.6-14.6 [facility] Work Phone: Immature granulocytes/100 WBC (Bld) 0.600 % 0.0-0.9 [facility] Work Phone: [phone] Comment on above: IG% - Immature Granu locytes (promyelocytes, myelocytes and metamyelocytes) > 1% indicates that a LEFT SHIFT is Present. MCH (RBC) [Entitic mass] 26.8 pg 27.0-32.0 [facility] Work Phone: Nucleated RBC/100 WBC (Bld) [Ratio] 0 % 0-5 [facility] Work Phone: MCHC Auto (RBC) [Mass/Vol]on 01-25-2022 MCHC (RBC) [Mass/Vol] 30.3 g/dL 32-36 [facility] Work Phone: No Panel Informationon 01-25 Estimated GFR (MDRD) Amer 103 mL/min >60 [facility] Work Phone: Comment on above: GFR Calc Estimated GFR (MDRD) Non-Af Amer 85 mL/min >60 [facility] Work Phone: Comment on above: Non- GFR Calc Platelets bldon 01-25-2022 Platelets (Bld) [#/Vol] 513 10*3/uL 150-450 [facility] Work Phone: Serum or plasma calcium jj urement (mass/volume)on 01-25-2022 Calcium [Mass/Vol] 9.6 mg/dL 8.5-10.1 [facility] Work Phone: Serum or plasma creatinine m easurement (mass/volume)on 01-25-2022 Creatinine [Mass/Vol] 0.73 mg/dL 0.55-1.02 [facility] Work Phone: Comment on above: The validity of the calculated GFR & GFRAA in patients over 70 years has not been determined. Clinical correlation is essential. Serum or plasma urea nitroge n measurement (mass/volume)on 01-25-2022 Urea nitrogen [Mass/Vol] 28 mg/dL 7-18 [facility] Work Phone: Thin prep Papanicolaou smear with manual screeningon 01-25-2022 Thin prep Papanicolaou smear with manual screening 9 5-15 [facility] Work Phone: Absolute lymphocyte counton 01-11-2022 Lymphocytes Auto (Unsp spec) [#/Vol] 1.57 10*3/uL 0.83-4.51 [facility] Work Phone: Basophil percentageon 2021 Basophils/100 WBC (Bld) 1.3 % 0-1 [facility] Work Phone: Chloride [Moles/Vol] 107 mmol/L 98-107 [facility] Work Phone: Eosinophils/100 WBC (Bld) 4.7 % 0-5 [facility] Work Phone: Glucose [Mass/Vol] 89 mg/dL 74-106 [facility] Work Phone: Neutrophils (Bld) [#/Vol] 3.5 10*3/uL 2.0-7.7 [facility] Work Phone: Neutrophils/100 WBC (Bld) 56.0 % 47-70 [facility] Work Phone: Potassium [Moles/Vol] 4.0 mmol/L 3.5-5.1 [facility] Work Phone: Sodium [Moles/Vol] 139 mmol/L 136-145 [facility] Work Phone: WBC (Bld) [#/Vol] 6.3 10*3/uL 4.4-11.0 [facility] Work Phone: Blood erythrocytes count (nu mber/volume)on 01-11-2022 RBC (Bld) [#/Vol] 4.71 10*6/uL 4.2-5.4 [facility] Work Phone: Blood hemoglobin measurement (mass/volume)on 01-11-2022 Hemoglobin (Bld) [Mass/Vol] 12.4 g/dL 12.0-15.0 [facility] Work Phone: Blood lymphocytes/100 leukoc yteson 01-11-2022 Lymphocytes/100 WBC (Bld) 24.8 % 19-41 [facility] Work Phone: Blood monocytes/100 leukocyt eson 01-11-2022 Monocytes/100 WBC (Bld) 12.7 % 0-10 [facility] Work Phone: Blood platelet mean volumeon 01-11-2022 Platelet mean volume (Bld) [Entitic vol] 8.8 fL 6.2-12.0 [facility] Work Phone: [phone] Determination of erythrocyte mean corpuscular volume (MCV)on 01-11-2022 MCV (RBC) [Entitic vol] 89.2 fL 81-99 [facility] Work Phone: [phone] Hematocrit Auto (Bld) [Volum e fraction]on 01-11-2022 Hematocrit (Bld) [Volume fraction] 42.0 % 37-47 [facility] Work Phone: [phone] Laboratory - Chemistry and C hemistry - challengeon 01-11-2022 CO2 [Moles/Vol] 26.0 mmol/L 21.0-32.0 [facility] Work Phone: [phone] Urea nitrogen/Creatinine [Mass ratio] 45.6 mg/mg 10-20 [facility] Work Phone: [phone] Laboratory - Hematology and Cell countson 01-11-2022 Erythrocyte distribution width (RBC) [Entitic vol] 51.2 fL 35.1-43.9 [facility] Work Phone: [phone] Erythrocyte distribution width (RBC) [Ratio] 15.6 % 11.6-14.6 [facility] Work Phone: [phone] Immature granulocytes/100 WBC (Bld) 0.500 % 0.0-0.9 [facility] Work Phone: [phone] Comment on above: IG% - Immature Granu locytes (promyelocytes, myelocytes and metamyelocytes) > 1% indicates that a LEFT SHIFT is Present. MCH (RBC) [Entitic mass] 26.3 pg 27.0-32.0 [facility] Work Phone: [phone] Nucleated RBC/100 WBC (Bld) [Ratio] 0 % 0-5 [facility] Work Phone: [phone] MCHC Auto (RBC) [Mass/Vol]on 01-11-2022 MCHC (RBC) [Mass/Vol] 29.5 g/dL 32-36 [facility] Work [facility]: No Panel Informationon 01-11 Estimated GFR (MDRD) Amer 158 mL/min >60 [facility] Work Phone: Comment on above: GFR Calc Estimated GFR (MDRD) Non-Af Amer 131 mL/min >60 [facility] Work Phone: Comment on above: Non- GFR Calc Platelets bldon 01-11-2022 Platelets (Bld) [#/Vol] 496 10*3/uL 150-450 [facility] Work Phone: Serum or plasma calcium jj urement (mass/volume)on 01-11-2022 Calcium [Mass/Vol] 9.7 mg/dL 8.5-10.1 [facility] Work Phone: Serum or plasma creatinine m easurement (mass/volume)on 01-11-2022 Creatinine [Mass/Vol] 0.50 mg/dL 0.55-1.02 [facility] Work Phone: Comment on above: The validity of the calculated GFR & GFRAA in patients over 70 years has not been determined. Clinical correlation is essential. Serum or plasma urea nitroge n measurement (mass/volume)on 01-11-2022 Urea nitrogen [Mass/Vol] 23 mg/dL 7-18 [facility] Work Phone: Thin prep Papanicolaou smear with manual screeningon 01-11-2022 Thin prep Papanicolaou smear with manual screening 6 5-15 [facility] Work Phone: Absolute lymphocyte counton 12-28-2021 Lymphocytes Auto (Unsp spec) [#/Vol] 1.56 10*3/uL 0.83-4.51 [facility] Work Phone: Basophil percentageon 2021 Basophils/100 WBC (Bld) 1.1 % 0-1 [facility] Work Phone: Chloride [Moles/Vol] 106 mmol/L 98-107 [facility] Work Phone: Eosinophils/100 WBC (Bld) 3.4 % 0-5 [facility] Work Phone: Glucose [Mass/Vol] 93 mg/dL 74-106 [facility] Work Phone: Neutrophils (Bld) [#/Vol] 4.3 10*3/uL 2.0-7.7 [facility] Work Phone: Neutrophils/100 WBC (Bld) 61.0 % 47-70 [facility] Work Phone: Potassium [Moles/Vol] 3.7 mmol/L 3.5-5.1 [facility] Work Phone: Sodium [Moles/Vol] 139 mmol/L 136-145 [facility] Work Phone: WBC (Bld) [#/Vol] 7.0 10*3/uL 4.4-11.0 [facility] Work Phone: Blood erythrocytes count (nu mber/volume)on 12-28-2021 RBC (Bld) [#/Vol] 4.69 10*6/uL 4.2-5.4 [facility] Work Phone: Blood hemoglobin measurement (mass/volume)on 12-28-2021 Hemoglobin (Bld) [Mass/Vol] 12.6 g/dL 12.0-15.0 [facility] Work Phone: Blood lymphocytes/100 leukoc yteson 12-28-2021 Lymphocytes/100 WBC (Bld) 22.2 % 19-41 [facility] Work Phone: Blood monocytes/100 leukocyt eson 12-28-2021 Monocytes/100 WBC (Bld) 11.6 % 0-10 [facility] Work Phone: Blood platelet mean volumeon 12-28-2021 Platelet mean volume (Bld) [Entitic vol] 8.5 fL 6.2-12.0 [facility] Work Phone: Determination of erythrocyte mean corpuscular volume (MCV)on 12-28-2021 MCV (RBC) [Entitic vol] 90.2 fL 81-99 [facility] Work Phone: [phone] Hematocrit Auto (Bld) [Volum e fraction]on 12-28-2021 Hematocrit (Bld) [Volume fraction] 42.3 % 37-47 [facility] Work Phone: [phone] Laboratory - Chemistry and C hemistry - challengeon 12-28-2021 CO2 [Moles/Vol] 26.0 mmol/L 21.0-32.0 [facility] Work Phone: [phone] Urea nitrogen/Creatinine [Mass ratio] 34.9 mg/mg 10-20 [facility] Work Phone: [phone] Laboratory - Hematology and Cell countson 12-28-2021 Erythrocyte distribution width (RBC) [Entitic vol] 51.9 fL 35.1-43.9 [facility] Work Phone: [phone] Erythrocyte distribution width (RBC) [Ratio] 15.9 % 11.6-14.6 [facility] Work Phone: [phone] Immature granulocytes/100 WBC (Bld) 0.700 % 0.0-0.9 [facility] Work Phone: [phone] Comment on above: IG% - Immature Granu locytes (promyelocytes, myelocytes and metamyelocytes) > 1% indicates that a LEFT SHIFT is Present. MCH (RBC) [Entitic mass] 26.9 pg 27.0-32.0 [facility] Work Phone: [phone] Nucleated RBC/100 WBC (Bld) [Ratio] 0 % 0-5 [facility] Work Phone: [phone] MCHC Auto (RBC) [Mass/Vol]on 12-28-2021 MCHC (RBC) [Mass/Vol] 29.8 g/dL 32-36 [facility] Work Phone: [phone] No Panel Informationon 12-28 Estimated GFR (MDRD) Amer 129 mL/min >60 [facility] Work Phone: [phone] Comment on above: GFR Calc Estimated GFR (MDRD) Non-Af Amer 107 mL/min >60 [facility] Work Phone: Comment on above: Non- GFR Calc Platelets bldon 12-28-2021 Platelets (Bld) [#/Vol] 574 10*3/uL 150-450 [facility] Work Phone: Serum or plasma calcium jj urement (mass/volume)on 12-28-2021 Calcium [Mass/Vol] 9.7 mg/dL 8.5-10.1 [facility] Work Phone: Serum or plasma creatinine m easurement (mass/volume)on 12-28-2021 Creatinine [Mass/Vol] 0.60 mg/dL 0.55-1.02 [facility] Work Phone: Comment on above: The validity of the calculated GFR & GFRAA in patients over 70 years has not been determined. Clinical correlation is essential. Serum or plasma urea nitroge n measurement (mass/volume)on 12-28-2021 Urea nitrogen [Mass/Vol] 21 mg/dL 7-18 [facility] Work Phone: Thin prep Papanicolaou smear with manual screeningon 12-28-2021 Thin prep Papanicolaou smear with manual screening 7 5-15 [facility] Work Phone: Absolute lymphocyte counton 12-14-2021 Lymphocytes Auto (Unsp spec) [#/Vol] 1.34 10*3/uL 0.83-4.51 [facility] Work Phone: Basophil percentageon 2021 Basophils/100 WBC (Bld) 1.1 % 0-1 [facility] Work Phone: Chloride [Moles/Vol] 106 mmol/L 98-107 [facility] Work Phone: Eosinophils/100 WBC (Bld) 2.3 % 0-5 [facility] Work Phone: Glucose [Mass/Vol] 94 mg/dL 74-106 [facility] Work Phone: Neutrophils (Bld) [#/Vol] 6.7 10*3/uL 2.0-7.7 [facility] Work Phone: Neutrophils/100 WBC (Bld) 70.8 % 47-70 [facility] Work Phone: Potassium [Moles/Vol] 3.6 mmol/L 3.5-5.1 [facility] Work Phone: Sodium [Moles/Vol] 143 mmol[facility]L 136-[facility]: WBC (Bld) [#/Vol] 9.4 10*3/uL 4.4-11.0 [facility] Work [facility]: Blood erythrocytes count (nu mber/volume)on 12-14-2021 RBC (Bld) [#/Vol] 4.55 10*6/uL 4.2-5.4 [facility] Work Phone: Blood hemoglobin measurement (mass/volume)on 12-14-2021 Hemoglobin (Bld) [Mass/Vol] 11.9 g/dL 12.0-15.0 [facility] Work Phone: Blood lymphocytes/100 leukoc yteson 12-14-2021 Lymphocytes/100 WBC (Bld) 14.2 % 19-41 [facility] Work Phone: Blood monocytes/100 leukocyt eson 12-14-2021 Monocytes/100 WBC (Bld) 11.0 % 0-10 [facility] Work Phone: Blood platelet mean volumeon 12-14-2021 Platelet mean volume (Bld) [Entitic vol] 9.0 fL 6.2-12.0 [facility] Work Phone: Determination of erythrocyte mean corpuscular volume (MCV)on 12-14-2021 MCV (RBC) [Entitic vol] 90.1 fL 81-99 [facility] Work Phone: Hematocrit Auto (Bld) [Volum e fraction]on 12-14-2021 Hematocrit (Bld) [Volume fraction] 41.0 % 37-47 [facility] Work Phone: [phone] Laboratory - Chemistry and C hemistry - challengeon 12-14-2021 CO2 [Moles/Vol] 30.0 mmol/L 21.0-32.0 [facility] Work Phone: [phone] Urea nitrogen/Creatinine [Mass ratio] 40.1 mg/mg 10-20 [facility] Work Phone: [phone] Laboratory - Hematology and Cell countson 12-14-2021 Erythrocyte distribution width (RBC) [Entitic vol] 53.1 fL 35.1-43.9 [facility] Work Phone: [phone] Erythrocyte distribution width (RBC) [Ratio] 15.9 % 11.6-14.6 [facility] Work Phone: [phone] Immature granulocytes/100 WBC (Bld) 0.600 % 0.0-0.9 [facility] Work Phone: [phone] Comment on above: IG% - Immature Granu locytes (promyelocytes, myelocytes and metamyelocytes) > 1% indicates that a LEFT SHIFT is Present. MCH (RBC) [Entitic mass] 26.2 pg 27.0-32.0 [facility] Work Phone: [phone] Nucleated RBC/100 WBC (Bld) [Ratio] 0 % 0-5 [facility] Work Phone: [phone] MCHC Auto (RBC) [Mass/Vol]on 12-14-2021 MCHC (RBC) [Mass/Vol] 29.0 g/dL 32-36 [facility] Work Phone: [phone] No Panel Informationon 12-14 Estimated GFR (MDRD) Amer 144 mL/min >60 [facility] Work Phone: [phone] Comment on above: GFR Calc Estimated GFR (MDRD) Non-Af Amer 119 mL/min >60 [facility] Work Phone: [phone] Comment on above: Non- GFR Calc Platelets bldon 12-14-2021 Platelets (Bld) [#/Vol] 567 10*3/uL 150-450 [facility] Work Phone: Serum or plasma calcium jj urement (mass/volume)on 12-14-2021 Calcium [Mass/Vol] 9.6 mg/dL 8.5-10.1 [facility] Work Phone: Serum or plasma creatinine m easurement (mass/volume)on 12-14-2021 Creatinine [Mass/Vol] 0.55 mg/dL 0.55-1.02 [facility] Work Phone: Comment on above: The validity of the calculated GFR & GFRAA in patients over 70 years has not been determined. Clinical correlation is essential. Serum or plasma urea nitroge n measurement (mass/volume)on 12-14-2021 Urea nitrogen [Mass/Vol] 22 mg/dL 7-18 [facility] Work Phone: Thin prep Papanicolaou smear with manual screeningon 12-14-2021 Thin prep Papanicolaou smear with manual screening 7 5-15 [facility] Work Phone: Absolute lymphocyte counton 11-16-2021 Lymphocytes Auto (Unsp spec) [#/Vol] 1.38 10*3/uL 0.83-4.51 [facility] Work Phone: Basophil percentageon 2021 Basophils/100 WBC (Bld) 1.1 % 0-1 [facility] Work Phone: Chloride [Moles/Vol] 106 mmol/L 98-107 [facility] Work Phone: Eosinophils/100 WBC (Bld) 3.7 % 0-5 [facility] Work Phone: Glucose [Mass/Vol] 100 mg/dL 74-106 [facility] Work Phone: Comment on above: Fasting Glucose resu lt from 100 to 125 mg/dL suggests IMPAIRED HOMEOSTASIS per A.D.A. criteria. Neutrophils (Bld) [#/Vol] 4.5 10*3/uL 2.0-7.7 [facility] Work Phone: Neutrophils/100 WBC (Bld) 61.9 % 47-70 [facility] Work Phone: Potassium [Moles/Vol] 3.7 mmol/L 3.5-5.1 [facility]: Sodium [Moles/Vol] 142 mmol/L 136-145 [facility] Work Phone: [phone] WBC (Bld) [#/Vol] 7.3 10*3/uL 4.4-11.0 [facility] Work Phone: [phone] Blood erythrocytes count (nu mber/volume)on 11-16-2021 RBC (Bld) [#/Vol] 4.38 10*6/uL 4.2-5.4 [facility] Work Phone: Blood hemoglobin measurement (mass/volume)on 11-16-2021 Hemoglobin (Bld) [Mass/Vol] 11.6 g/dL 12.0-15.0 [facility] Work Phone: [phone] Blood lymphocytes/100 leukoc yteson 11-16-2021 Lymphocytes/100 WBC (Bld) 18.9 % 19-41 [facility] Work Phone: Blood monocytes/100 leukocyt eson 11-16-2021 Monocytes/100 WBC (Bld) 13.0 % 0-10 [facility] Work Phone: Blood platelet mean volumeon 11-16-2021 Platelet mean volume (Bld) [Entitic vol] 8.5 fL 6.2-12.0 [facility] Work Phone: Determination of erythrocyte mean corpuscular volume (MCV)on 11-16-2021 MCV (RBC) [Entitic vol] 90.6 fL 81-99 [facility] Work Phone: Hematocrit Auto (Bld) [Volum e fraction]on 11-16-2021 Hematocrit (Bld) [Volume fraction] 39.7 % 37-47 [facility] Work Phone: Laboratory - Chemistry and C hemistry - challengeon 11-16-2021 CO2 [Moles/Vol] 30.0 mmol/L 21.0-32.0 [facility] Work Phone: [phone] Urea nitrogen/Creatinine [Mass ratio] 23.4 mg/mg 10-20 [facility] Work Phone: [phone] Laboratory - Hematology and Cell countson 11-16-2021 Erythrocyte distribution width (RBC) [Entitic vol] 54.2 fL 35.1-43.9 [facility] Work Phone: [phone] Erythrocyte distribution width (RBC) [Ratio] 16.2 % 11.6-14.6 [facility] Work Phone: [phone] Immature granulocytes/100 WBC (Bld) 1.400 % 0.0-0.9 [facility] Work Phone: [phone] Comment on above: IG% - Immature Granu locytes (promyelocytes, myelocytes and metamyelocytes) > 1% indicates that a LEFT SHIFT is Present. MCH (RBC) [Entitic mass] 26.5 pg 27.0-32.0 [facility] Work Phone: [phone] Nucleated RBC/100 WBC (Bld) [Ratio] 0 % 0-5 [facility] Work Phone: [phone] MCHC Auto (RBC) [Mass/Vol]on 11-16-2021 MCHC (RBC) [Mass/Vol] 29.2 g/dL 32-36 [facility] Work Phone: No Panel Informationon 11-16 Estimated GFR (MDRD) Amer 142 mL/min >60 [facility] Work Phone: [phone] Comment on above: GFR Calc Estimated GFR (MDRD) Non-Af Amer 117 mL/min >60 [facility] Work Phone: [phone] Comment on above: Non- GFR Calc Platelets bldon 11-16-2021 Platelets (Bld) [#/Vol] 584 10*3/uL 150-450 [facility] Work Phone: [phone] Serum or plasma calcium jj urement (mass/volume)on 11-16-2021 Calcium [Mass/Vol] 9.4 mg/dL 8.5-10.1 [facility] Work Phone: Serum or plasma creatinine m easurement (mass/volume)on 11-16-2021 Creatinine [Mass/Vol] 0.56 mg/dL 0.55-1.02 [facility] Work Phone: Comment on above: The validity of the calculated GFR & GFRAA in patients over 70 years has not been determined. Clinical correlation is essential. Serum or plasma urea nitroge n measurement (mass/volume)on 11-16-2021 Urea nitrogen [Mass/Vol] 13 mg/dL 7-18 [facility] Work Phone: Thin prep Papanicolaou smear with manual screeningon 11-16-2021 Thin prep Papanicolaou smear with manual screening 6 -15 [facility] Work Phone: Absolute lymphocyte counton 11-02-2021 Lymphocytes Auto (Unsp spec) [#/Vol] 1.38 10*3/uL 0.83-4.51 [facility] Work Phone: Basophil percentageon 2021 Basophils/100 WBC (Bld) 1.1 % 0-1 [facility] Work Phone: Chloride [Moles/Vol] 100 mmol/L 98-107 [facility] Work Phone: Eosinophils/100 WBC (Bld) 4.3 % 0-5 [facility] Work Phone: Glucose [Mass/Vol] 78 mg/dL 74-106 [facility] Work Phone: Neutrophils (Bld) [#/Vol] 6.8 10*3/uL 2.0-7.7 [facility] Work Phone: Neutrophils/100 WBC (Bld) 69.5 % 47-70 [facility] Work Phone: Potassium [Moles/Vol] 3.5 mmol/L 3.5-5.1 [facility] Work Phone: Sodium [Moles/Vol] 138 mmol/L 136-145 [facility] Work Phone: [phone] WBC (Bld) [#/Vol] 9.8 10*3/uL 4.4-11.0 [facility] Work Phone: [phone] Blood erythrocytes count (nu mber/volume)on 11-02-2021 RBC (Bld) [#/Vol] 4.58 10*6/uL 4.2-5.4 [facility] Work Phone: [phone] Blood hemoglobin measurement (mass/volume)on 11-02-2021 Hemoglobin (Bld) [Mass/Vol] 12.2 g/dL 12.0-15.0 [facility] Work Phone: [phone] Blood lymphocytes/100 leukoc yteson 11-02-2021 Lymphocytes/100 WBC (Bld) 14.1 % 19-41 [facility] Work Phone: [phone] Blood monocytes/100 leukocyt eson 11-02-2021 Monocytes/100 WBC (Bld) 9.1 % 0-10 [facility] Work Phone: [phone] Blood platelet mean volumeon 11-02-2021 Platelet mean volume (Bld) [Entitic vol] 8.2 fL 6.2-12.0 [facility] Work Phone: [phone] Determination of erythrocyte mean corpuscular volume (MCV)on 11-02-2021 MCV (RBC) [Entitic vol] 90.2 fL 81-99 [facility] Work Phone: [phone] Hematocrit Auto (Bld) [Volum e fraction]on 11-02-2021 Hematocrit (Bld) [Volume fraction] 41.3 % 37-47 [facility] Work Phone: [phone] Laboratory - Chemistry and C hemistry - challengeon 11-02-2021 CO2 [Moles/Vol] 31.0 mmol/L 21.0-32.0 [facility] Work Phone: [phone] Urea nitrogen/Creatinine [Mass ratio] 35.8 mg/mg 10-20 [facility] Work Phone: [phone] Laboratory - Hematology and Cell countson 11-02-2021 Erythrocyte distribution width (RBC) [Entitic vol] 51.6 fL 35.1-43.9 [facility] Work Phone: [phone] Erythrocyte distribution width (RBC) [Ratio] 15.7 % 11.6-14.6 [facility] Work Phone: [phone] Immature granulocytes/100 WBC (Bld) 1.900 % 0.0-0.9 [facility] Work Phone: [phone] Comment on above: IG% - Immature Granu locytes (promyelocytes, myelocytes and metamyelocytes) > 1% indicates that a LEFT SHIFT is Present. MCH (RBC) [Entitic mass] 26.6 pg 27.0-32.0 [facility] Work Phone: [phone] Nucleated RBC/100 WBC (Bld) [Ratio] 0 % 0-5 [facility] Work Phone: [phone] MCHC Auto (RBC) [Mass/Vol]on 11-02-2021 MCHC (RBC) [Mass/Vol] 29.5 g/dL 32-36 [facility] Work Phone: No Panel Informationon 11-02 Estimated GFR (MDRD) Amer 133 mL/min >60 [facility] Work Phone: [phone] Comment on above: GFR Calc Estimated GFR (MDRD) Non-Af Amer 110 mL/min >60 [facility] Work Phone: [phone] Comment on above: Non- GFR Calc Platelets bldon 11-02-2021 Platelets (Bld) [#/Vol] 545 10*3/uL 150-450 [facility] Work Phone: [phone] Serum or plasma calcium jj urement (mass/volume)on 11-02-2021 Calcium [Mass/Vol] 9.6 mg/dL 8.5-10.1 [facility] Work Phone: [phone] Serum or plasma creatinine m easurement (mass/volume)on 11-02-2021 Creatinine [Mass/Vol] 0.59 mg/dL 0.55-1.02 [facility] Work Phone: Comment on above: The validity of the calculated GFR & GFRAA in patients over 70 years has not been determined. Clinical correlation is essential. Serum or plasma urea nitroge n measurement (mass/volume)on 11-02-2021 Urea nitrogen [Mass/Vol] 21 mg/dL 7-18 [facility] Work Phone: Thin prep Papanicolaou smear with manual screeningon 11-02-2021 Thin prep Papanicolaou smear with manual screening 7 5-15 [facility] Work Phone: Absolute lymphocyte counton 10-25-2021 Lymphocytes Auto (Unsp spec) [#/Vol] 1.29 10*3/uL 0.83-4.51 [facility] Work Phone: Basophil percentageon 2021 Basophils/100 WBC (Bld) 0.8 % 0-1 [facility] Work Phone: Chloride [Moles/Vol] 106 mmol/L 98-107 [facility] Work Phone: Eosinophils/100 WBC (Bld) 2.0 % 0-5 [facility] Work Phone: Glucose [Mass/Vol] 106 mg/dL 74-106 [facility] Work Phone: Comment on above: Fasting Glucose resu lt from 100 to 125 mg/dL suggests IMPAIRED HOMEOSTASIS per A.D.A. criteria. Neutrophils (Bld) [#/Vol] 13.8 10*3/uL 2.0-7.7 [facility] Work Phone: Neutrophils/100 WBC (Bld) 79.4 % 47-70 [facility] Work Phone: Potassium [Moles/Vol] 4.3 mmol/L 3.5-5.1 [facility] Work Phone: Comment on above: Slight Hemolysis, Re sult may be falsely increased. Sodium [Moles/Vol] 137 mmol/L 136-145 [facility] Work Phone: WBC (Bld) [#/Vol] 17.3 10*3/uL 4.4-11.0 [facility] Work Phone: [phone] Blood erythrocytes count (nu mber/volume)on 10-25-2021 RBC (Bld) [#/Vol] 4.91 10*6/uL 4.2-5.4 [facility] Work Phone: [phone] Blood hemoglobin measurement (mass/volume)on 10-25-2021 Hemoglobin (Bld) [Mass/Vol] 13.4 g/dL 12.0-15.0 [facility] Work Phone: [phone] Blood lymphocytes/100 leukoc yteson 10-25-2021 Lymphocytes/100 WBC (Bld) 7.5 % 19-41 [facility] Work Phone: [phone] Blood monocytes/100 leukocyt eson 10-25-2021 Monocytes/100 WBC (Bld) 7.9 % 0-10 [facility] Work Phone: [phone] Blood platelet mean volumeon 10-25-2021 Platelet mean volume (Bld) [Entitic vol] 8.6 fL 6.2-12.0 [facility] Work Phone: [phone] Determination of erythrocyte mean corpuscular volume (MCV)on 10-25-2021 MCV (RBC) [Entitic vol] 87.8 fL 81-99 [facility] Work Phone: [phone] Hematocrit Auto (Bld) [Volum e fraction]on 10-25-2021 Hematocrit (Bld) [Volume fraction] 43.1 % 37-47 [facility] Work Phone: [phone] Laboratory - Chemistry and C hemistry - challengeon 10-25-2021 CO2 [Moles/Vol] 24.0 mmol/L 21.0-32.0 [facility] Work Phone: [phone] Urea nitrogen/Creatinine [Mass ratio] 18.2 mg/mg 10-20 [facility] Work Phone: [phone] Laboratory - Hematology and Cell countson 10-25-2021 Erythrocyte distribution width (RBC) [Entitic vol] 49.2 fL 35.1-43.9 [facility] Work Phone: [phone] Erythrocyte distribution width (RBC) [Ratio] 15.5 % 11.6-14.6 [facility] Work Phone: [phone] Immature granulocytes/100 WBC (Bld) 2.400 % 0.0-0.9 [facility] Work Phone: [phone] Comment on above: IG% - Immature Granu locytes (promyelocytes, myelocytes and metamyelocytes) > 1% indicates that a LEFT SHIFT is Present. MCH (RBC) [Entitic mass] 27.3 pg 27.0-32.0 [facility] Work Phone: [phone] Nucleated RBC/100 WBC (Bld) [Ratio] 0 % 0-5 [facility] Work Phone: [phone] MCHC Auto (RBC) [Mass/Vol]on 10-25-2021 MCHC (RBC) [Mass/Vol] 31.1 g/dL 32-36 [facility] Work Phone: No Panel Informationon 10-25 Estimated GFR (MDRD) Amer 84 mL/min >60 [facility] Work Phone: Comment on above: GFR Calc Estimated GFR (MDRD) Non-Af Amer 69 mL/min >60 [facility] Work Phone: Comment on above: Non- GFR Calc Platelets bldon 10-25-2021 Platelets (Bld) [#/Vol] 614 10*3/uL 150-450 [facility] Work Phone: [phone] Serum or plasma calcium jj urement (mass/volume)on 10-25-2021 Calcium [Mass/Vol] 8.9 mg/dL 8.5-10.1 [facility] Work Phone: [phone] Serum or plasma creatinine m easurement (mass/volume)on 10-25-2021 Creatinine [Mass/Vol] 0.88 mg/dL 0.55-1.02 [facility] Work Phone: [phone] Comment on above: The validity of the calculated GFR & GFRAA in patients over 70 years has not been determined. Clinical correlation is essential. Serum or plasma urea nitroge n measurement (mass/volume)on 10-25-2021 Urea nitrogen [Mass/Vol] 16 mg/dL 7-18 [facility] Work Phone: Thin prep Papanicolaou smear with manual screeningon 10-25-2021 Thin prep Papanicolaou smear with manual screening 7 5-15 [facility] Work Phone: Absolute lymphocyte counton 10-18-2021 Lymphocytes Auto (Unsp spec) [#/Vol] 2.05 10*3/uL 0.83-4.51 [facility] Work Phone: Basophil percentageon 2021 Basophil percentage Not Reportable [facility] Work Phone: Chloride [Moles/Vol] 97 mmol/L 98-107 [facility] Work Phone: Glucose [Mass/Vol] 120 mg/dL 74-106 [facility] Work Phone: Comment on above: Fasting Glucose resu lt from 100 to 125 mg/dL suggests IMPAIRED HOMEOSTASIS per A.D.A. criteria. Neutrophils (Bld) [#/Vol] 12.6 10*3/uL 2.0-7.7 [facility] Work Phone: Potassium [Moles/Vol] 4.7 mmol/L 3.5-5.1 [facility] Work Phone: Sodium [Moles/Vol] 131 mmol/L 136-145 [facility] Work Phone: WBC (Bld) [#/Vol] 18.6 10*3/uL 4.4-11.0 [facility] Work Phone: Bilirubin Test strip Ql (U)o n 10-18-2021 Bilirubin Ql (U) Negative Negative [facility] Work Phone: Blood eosinophils/100 leukoc yteson 10-18-2021 Eosinophils/100 WBC (Bld) 2 % 0-5 [facility] Work Phone: Blood erythrocytes count (nu mber/volume)on 10-18-2021 RBC (Bld) [#/Vol] 4.24 10*6/uL 4.2-5.4 [facility] Work Phone: Blood hemoglobin measurement (mass/volume)on 10-18-2021 Hemoglobin (Bld) [Mass/Vol] 11.6 g/dL 12.0-15.0 [facility] Work Phone: Blood lymphocytes/100 leukoc yteson 10-18-2021 Lymphocytes/100 WBC (Bld) 11 % 19-41 [facility] Work Phone: Blood metamyelocytes/100 papa kocyteson 10-18-2021 Metamyelocytes/100 WBC (Bld) 6 % 0-1 [facility] Work Phone: Blood monocytes/100 leukocyt eson 10-18-2021 Monocytes/100 WBC (Bld) 8 % 0-10 [facility] Work Phone: Blood platelet adequacy dete ction by light microscopyon 10-18-2021 Platelets LM Ql (Bld) MOD INC ADEQ [facility] Work Phone: Blood platelet mean volumeon 10-18-2021 Platelet mean volume (Bld) [Entitic vol] 8.6 fL 6.2-12.0 [facility] Work Phone: Blood promyelocytes/100 leuk ocyteson 10-18-2021 Promyelocytes/100 WBC (Bld) 1 % 0-0 [facility] Work Phone: Blood segmented neutrophils/ 100 leukocyteson 10-18-2021 Segmented neutrophils/100 WBC (Bld) 68 % 47-70 [facility] Work Phone: Culture, urineon 10-18-2021 Bacteria identified Cx Nom (U) Mixed Gram Pos & Gram Neg Org [facility] Work Phone: Bacteria identified Cx Nom (U) Yeast [facility] Work Phone: Determination of erythrocyte mean corpuscular volume (MCV)on 10-18-2021 MCV (RBC) [Entitic vol] 89.6 fL 81-99 [facility] Work Phone: [phone] Hematocrit Auto (Bld) [Volum e fraction]on 10-18-2021 Hematocrit (Bld) [Volume fraction] 38.0 % 37-47 [facility] Work Phone: [phone] Ketones Test strip Ql (U)on 10-18-2021 Ketones Ql (U) Negative Negative [facility] Work Phone: [phone] Laboratory - Chemistry and C hemistry - challengeon 10-18-2021 CO2 [Moles/Vol] 24.0 mmol/L 21.0-32.0 [facility] Work Phone: [phone] Urea nitrogen/Creatinine [Mass ratio] 49.9 mg/mg 10-20 [facility] Work Phone: [phone] Laboratory - Hematology and Cell countson 10-18-2021 Erythrocyte distribution width (RBC) [Entitic vol] 48.5 fL 35.1-43.9 [facility] Work Phone: [phone] Erythrocyte distribution width (RBC) [Ratio] 14.9 % 11.6-14.6 [facility] Work Phone: [phone] MCH (RBC) [Entitic mass] 27.4 pg 27.0-32.0 [facility] Work Phone: [phone] Myelocytes/100 WBC (Bld) 4 % 0-0 [facility] Work Phone: [phone] MCHC Auto (RBC) [Mass/Vol]on 10-18-2021 MCHC (RBC) [Mass/Vol] 30.5 g/dL 32-36 [facility] Work Phone: [phone] Nitrite Test strip Ql (U)on 10-18-2021 Nitrite Ql (U) Negative Negative [facility] Work Phone: No Panel Informationon 10-18 Estimated GFR (MDRD) Amer 129 mL/min >60 [facility] Work Phone: Comment on above: GFR Calc Estimated GFR (MDRD) Non-Af Amer 107 mL/min >60 [facility] Work Phone: [phone] Comment on above: Non- GFR Calc Platelets bldon 10-18-2021 Platelets (Bld) [#/Vol] 561 10*3/uL 150-450 [facility] Work Phone: [phone] Protein Test strip Ql (U)on 10-18-2021 Protein Ql (U) 15 mg/dl Negative [facility] Work Phone: RBC morphologyon 10-18-2021 RBC morphology finding Nom (Bld) NORM C+C NORMAL NORM C&C [facility] Work Phone: Review by pathologiston 10-03 Pathologist review Shaan (Unsp spec) [Interp] Reviewed [facility] Work Phone: Comment on above: Previous reported re sult: Kori isaacs Edited by: JACQUES on 10/19/21:1241Leukocytosis with Neutrophilic left shift. Thrombocytosis.Clinical correlation necessary.Je Browne M.D. 10/19/21 AMENDED REPORT 10/19/21 1241 PATH REV previously reported as: Kori isaacs Serum or plasma calcium jj urement (mass/volume)on 10-18-2021 Calcium [Mass/Vol] 9.6 mg/dL 8.5-10.1 [facility] Work Phone: [phone] Serum or plasma creatinine m easurement (mass/volume)on 10-18-2021 Creatinine [Mass/Vol] 0.60 mg/dL 0.55-1.02 [facility] Work Phone: [phone] Comment on above: The validity of the calculated GFR & GFRAA in patients over 70 years has not been determined. Clinical correlation is essential. Serum or plasma urea nitroge n measurement (mass/volume)on 10-18-2021 Urea nitrogen [Mass/Vol] 30 mg/dL 7-18 [facility] Work Phone: [phone] Thin prep Papanicolaou smear with manual screeningon 10-18-2021 Thin prep Papanicolaou smear with manual screening 10 5-15 [facility] Work Phone: Total cell counton 2 Cells counted Molgen (Bld/Tiss) [#] 100 MANUAL DIFF [facility] Work Phone: Urine blood detectionon 10-03 RBC Ql (U) Negative Negative [facility] Work Phone: Urine clarityon 10-18-2021 Clarity (U) Clear Clear [facility] Work Phone: Urine color determinationon 10-18-2021 Color (U) Yellow Yellow [facility] Work Phone: Urine glucose detectionon Glucose Ql (U) Normal mg/dl Normal [facility] Work Phone: Urine leukocyte esterase det ection by dipstickon 10-18-2021 Leukocyte esterase Test strip Ql (U) Negative Negative [facility] Work Phone: Urine pHon 10-18-2021 pH (U) 6.0 [pH] 5.0 - 8.0 [facility] Work Phone: Urine specific gravity measu rementon 10-18-2021 Specific gravity (U) [Rel density] 1.015 1.002-1.030 [facility] Work Phone: Urobilinogen Auto test strip Ql (U)on 10-18-2021 Urobilinogen Ql (U) Normal mg/dl Normal [facility] Work Phone: Absolute lymphocyte counton 10-11-2021 Lymphocytes Auto (Unsp spec) [#/Vol] 1.28 10*3/uL 0.83-4.51 [facility] Work Phone: Basophil percentageon 2021 Basophils/100 WBC (Bld) 0.5 % 0-1 [facility] Work Phone: Bilirubin [Mass/Vol] 0.40 mg/dL 0.20-1.00 [facility] Work Phone: Comment on above: For patients on eltr ombopag therapy, use of Dimension [place] TBIL is not recommended. Chloride [Moles/Vol] 102 mmol/L 98-107 [facility] Work Phone: Eosinophils/100 WBC (Bld) 3.5 % 0-5 [facility] Work Phone: [phone] Glucose [Mass/Vol] 130 mg/dL 74-106 [facility] Work Phone: Comment on above: Fasting Glucose resu lt greater than or equal to 126 mg/dL suggests DIABETES MELLITUS per A.D.A. criteria. Neutrophils (Bld) [#/Vol] 10.0 10*3/uL 2.0-7.7 [facility] Work Phone: Neutrophils/100 WBC (Bld) 74.6 % 47-70 [facility] Work Phone: Potassium [Moles/Vol] 4.0 mmol/L 3.5-5.1 [facility] Work Phone: Protein [Mass/Vol] 6.3 g/dL 6.4-8.2 [facility] Work Phone: Sodium [Moles/Vol] 137 mmol/L 136-145 [facility] Work Phone: WBC (Bld) [#/Vol] 13.4 10*3/uL 4.4-11.0 [facility] Work Phone: Blood erythrocytes count (nu mber/volume)on 10-11-2021 RBC (Bld) [#/Vol] 4.57 10*6/uL 4.2-5.4 [facility] Work Phone: Blood hemoglobin measurement (mass/volume)on 10-11-2021 Hemoglobin (Bld) [Mass/Vol] 12.4 g/dL 12.0-15.0 [facility] Work Phone: Blood lymphocytes/100 leukoc yteson 10-11-2021 Lymphocytes/100 WBC (Bld) 9.6 % 19-41 [facility] Work Phone: Blood monocytes/100 leukocyt eson 10-11-2021 Monocytes/100 WBC (Bld) 9.0 % 0-10 [facility] Work Phone: Blood platelet mean volumeon 10-11-2021 Platelet mean volume (Bld) [Entitic vol] 9.2 fL 6.2-12.0 [facility] Work Phone: Determination of erythrocyte mean corpuscular volume (MCV)on 10-11-2021 MCV (RBC) [Entitic vol] 90.2 fL 81-99 [facility] Work Phone: Hematocrit Auto (Bld) [Volum e fraction]on 10-11-2021 Hematocrit (Bld) [Volume fraction] 41.2 % 37-47 [facility] Work Phone: Laboratory - Chemistry and C hemistry - challengeon 10-11-2021 ALP [Catalytic activity/Vol] 79 U/L 45-117 [facility] Work Phone: ALT [Catalytic activity/Vol] 120 U/L 13-56 [facility] Work Phone: CO2 [Moles/Vol] 27.0 mmol/L 21.0-32.0 [facility] Work Phone: Globulin (S) [Mass/Vol] 4.5 g/dL 2.2-4.2 [facility] Work Phone: Urea nitrogen/Creatinine [Mass ratio] 64.6 mg/mg 10-20 [facility] Work Phone: Laboratory - Hematology and Cell countson 10-11-2021 Erythrocyte distribution width (RBC) [Entitic vol] 47.8 fL 35.1-43.9 [facility] Work Phone: Erythrocyte distribution width (RBC) [Ratio] 14.5 % 11.6-14.6 [facility] Work Phone: Immature granulocytes/100 WBC (Bld) 2.800 % 0.0-0.9 [facility] Work Phone: Comment on above: IG% - Immature Granu locytes (promyelocytes, myelocytes and metamyelocytes) > 1% indicates that a LEFT SHIFT is Present. MCH (RBC) [Entitic mass] 27.1 pg 27.0-32.0 [facility] Work Phone: Nucleated RBC/100 WBC (Bld) [Ratio] 0 % 0-5 [facility] Work Phone: [phone] MCHC Auto (RBC) [Mass/Vol]on 10-11-2021 MCHC (RBC) [Mass/Vol] 30.1 g/dL 32-36 [facility] Work Phone: No Panel Informationon 10-11 Estimated GFR (MDRD) Amer 168 mL/min >60 [facility] Work Phone: Comment on above: GFR Calc Estimated GFR (MDRD) Non-Af Amer 139 mL/min >60 [facility] Work Phone: [phone] Comment on above: Non- GFR Calc Platelets bldon 10-11-2021 Platelets (Bld) [#/Vol] 369 10*3/uL 150-450 [facility] Work Phone: [phone] Serum or plasma albumin jj urement (mass/volume)on 10-11-2021 Albumin [Mass/Vol] 1.8 g/dL 3.2-5.0 [facility] Work Phone: [phone] Serum or plasma albumin/glob ulin mass ratioon 10-11-2021 Albumin/Globulin [Mass ratio] 0.4 {ratio} 0.9-2.4 [facility] Work Phone: [phone] Serum or plasma calcium jj urement (mass/volume)on 10-11-2021 Calcium [Mass/Vol] 8.9 mg/dL 8.5-10.1 [facility] Work Phone: [phone] Serum or plasma creatinine m easurement (mass/volume)on 10-11-2021 Creatinine [Mass/Vol] 0.48 mg/dL 0.55-1.02 [facility] Work Phone: Comment on above: The validity of the calculated GFR & GFRAA in patients over 70 years has not been determined. Clinical correlation is essential. Serum or plasma urea nitroge n measurement (mass/volume)on 10-11-2021 Urea nitrogen [Mass/Vol] 31 mg/dL 7-18 [facility] Work Phone: Thin prep Papanicolaou smear with manual screeningon 10-11-2021 Thin prep Papanicolaou smear with manual screening 55 U/L 15-37 [facility] Work Phone: Thin prep Papanicolaou smear with manual screening 8 5-15 [facility] Work Phone: Absolute lymphocyte counton 09-28-2021 Lymphocytes Auto (Unsp spec) [#/Vol] 1.32 10*3/uL 0.83-4.51 [facility] Work Phone: Basophil percentageon 2021 Basophils/100 WBC (Bld) 0.5 % 0-1 [facility] Work Phone: Chloride [Moles/Vol] 106 mmol/L 98-107 [facility] Work Phone: Eosinophils/100 WBC (Bld) 0.1 % 0-5 [facility] Work Phone: Glucose [Mass/Vol] 115 mg/dL 74-106 [facility] Work Phone: Comment on above: Fasting Glucose resu lt from 100 to 125 mg/dL suggests IMPAIRED HOMEOSTASIS per A.D.A. criteria. Neutrophils (Bld) [#/Vol] 11.5 10*3/uL 2.0-7.7 [facility] Work Phone: Neutrophils/100 WBC (Bld) 77.5 % 47-70 [facility] Work Phone: Potassium [Moles/Vol] 4.0 mmol/L 3.5-5.1 [facility] Work Phone: Sodium [Moles/Vol] 138 mmol/L 136-145 [facility] Work Phone: WBC (Bld) [#/Vol] 14.8 10*3/uL 4.4-11.0 [facility] Work Phone: Blood erythrocytes count (nu mber/volume)on 09-28-2021 RBC (Bld) [#/Vol] 5.25 10*6/uL 4.2-5.4 [facility] Work Phone: Blood hemoglobin measurement (mass/volume)on 09-28-2021 Hemoglobin (Bld) [Mass/Vol] 14.7 g/dL 12.0-15.0 [facility] Work Phone: Blood lymphocytes/100 leukoc yteson 09-28-2021 Lymphocytes/100 WBC (Bld) 8.9 % 19-41 [facility] Work Phone: Blood monocytes/100 leukocyt eson 09-28-2021 Monocytes/100 WBC (Bld) 8.6 % 0-10 [facility] Work Phone: Blood platelet mean volumeon 09-28-2021 Platelet mean volume (Bld) [Entitic vol] 9.1 fL 6.2-12.0 [facility] Work Phone: Determination of erythrocyte mean corpuscular volume (MCV)on 09-28-2021 MCV (RBC) [Entitic vol] 88.8 fL 81-99 [facility] Work Phone: Glucose Glucometer (BldC) [M ass/Vol]on 09-28-2021 Glucose [Mass/Vol] 188 mg/dL 74-106 [facility] Work Phone: Comment on above: MANAGEMENT OF PATIEN T CARE PER NURSING PROTOCOL Hematocrit Auto (Bld) [Volum e fraction]on 09-28-2021 Hematocrit (Bld) [Volume fraction] 46.6 % 37-47 [facility] Work Phone: Laboratory - Chemistry and C hemistry - challengeon 09-28-2021 CO2 [Moles/Vol] 24.0 mmol/L 21.0-32.0 [facility] Work Phone: [phone] Urea nitrogen/Creatinine [Mass ratio] 41.0 mg/mg 10-20 [facility] Work Phone: [phone] Laboratory - Hematology and Cell countson 09-28-2021 Erythrocyte distribution width (RBC) [Entitic vol] 43.8 fL 35.1-43.9 [facility] Work Phone: [phone] Erythrocyte distribution width (RBC) [Ratio] 13.5 % 11.6-14.6 [facility] Work Phone: [phone] Immature granulocytes/100 WBC (Bld) 4.400 % 0.0-0.9 [facility] Work Phone: [phone] Comment on above: IG% - Immature Granu locytes (promyelocytes, myelocytes and metamyelocytes) > 1% indicates that a LEFT SHIFT is Present. MCH (RBC) [Entitic mass] 28.0 pg 27.0-32.0 [facility] Work Phone: [phone] Nucleated RBC/100 WBC (Bld) [Ratio] 0 % 0-5 [facility] Work Phone: [phone] MCHC Auto (RBC) [Mass/Vol]on 09-28-2021 MCHC (RBC) [Mass/Vol] 31.5 g/dL 32-36 [facility] Work Phone: [phone] No Panel Informationon 09-28 Estimated Creatinine Clearance Calc 92.08 ml/min [facility] Work Phone: [phone] Estimated GFR (MDRD) Amer 147 mL/min >60 [facility] Work Phone: [phone] Comment on above: GFR Calc Estimated GFR (MDRD) Non-Af Amer 122 mL/min >60 [facility] Work Phone: [phone] Comment on above: Non- GFR Calc Platelets bldon 09-28-2021 Platelets (Bld) [#/Vol] 490 10*3/uL 150-450 [facility] Work Phone: [phone] Serum or plasma calcium jj urement (mass/volume)on 09-28-2021 Calcium [Mass/Vol] 9.2 mg/dL 8.5-10.1 [facility] Work Phone: Serum or plasma creatinine m easurement (mass/volume)on 09-28-2021 Creatinine [Mass/Vol] 0.54 mg/dL 0.55-1.02 [facility] Work Phone: Comment on above: The validity of the calculated GFR & GFRAA in patients over 70 years has not been determined. Clinical correlation is essential. Serum or plasma urea nitroge n measurement (mass/volume)on 09-28-2021 Urea nitrogen [Mass/Vol] 22 mg/dL 7-18 [facility] Work Phone: Thin prep Papanicolaou smear with manual screeningon 09-28-2021 Thin prep Papanicolaou smear with manual screening 8 5-15 [facility] Work Phone: Blood lymphocytes/100 leukoc yteson 09-26-2021 Lymphocytes/100 WBC (Bld) 7 % 19-41 [facility] Work Phone: [phone] Blood monocytes/100 leukocyt eson 09-26-2021 Monocytes/100 WBC (Bld) 15 % 0-10 [facility] Work Phone: [phone] Blood platelet adequacy dete ction by light microscopyon 09-26-2021 Platelets LM Ql (Bld) MKD [employer] ADEQ [facility] Work Phone: [phone] Blood segmented neutrophils/ 100 leukocyteson 09-26-2021 Segmented neutrophils/100 WBC (Bld) 77 % 47-70 [facility] Work Phone: Laboratory - Hematology and Cell countson 09-26-2021 Myelocytes/100 WBC (Bld) 1 % 0-0 [facility] Work Phone: [phone] RBC morphologyon 09-26-2021 RBC morphology finding Nom (Bld) NORM C+C NORMAL NORM C&C [facility] Work Phone: Review by pathologiston 09-04 Pathologist review Shaan (Unsp spec) [Interp] Reviewed [facility] Work Phone: Comment on above: Previous reported re sult: Kori isaacs Edited by: RGOOD on 09/27/21:1017Neutrophilic leukocytosis with left shift. PolycythemiaThrombocytosis.Clinical correlation necessary.Je Browne M.D. 09/27/21 AMENDED REPORT 09/27/21 1017 PATH REV previously reported as: October ferny Total cell counton Cells counted Molgen (Bld/Tiss) [#] 100 MANUAL DIFF [facility] Work Phone: Blood band neutrophil count as percentage of total leukocyteson 09-25-2021 Band form neutrophils/100 WBC (Bld) 1 % 0-5 [facility] Work Phone: Blood metamyelocytes/100 papa kocyteson 09-25-2021 Metamyelocytes/100 WBC (Bld) 3 % 0-1 [facility] Work Phone: Blood promyelocytes/100 leuk ocyteson 09-25-2021 Promyelocytes/100 WBC (Bld) 1 % 0-0 [facility] Work Phone: Basophil percentageon 2021 Basophil percentage 1 % 0-5 [facility] Work Phone: No Panel Informationon 09-22 D-Dimer Quantitative (PE/DVT) 0.56 FEU/ug/m 0.27-0.49 [facility] Work Phone: Comment on above: D-Dimer ELEVATED (>0 .49): Additional studies and clinicalassessments are indicated to conclude diagnosis of:Deep Vein Thrombosis (DVT) or Pulmonary Embolism (PE)CRITICAL VALUE VERIFIED. CALLED TO YVONNE PONCE (U)09/22/21 1110 Aren Castaneda.RESULTS READ BACK BY SAME. Blood manual differential co mment interpretation (narrative result)on 09-21-2021 Manual differential comment Shaan (Bld) [Interp] SCANNED [facility] Work Phone: Basophil percentageon 2021 Bilirubin [Mass/Vol] 0.30 mg/dL 0.20-1.00 [facility] Work Phone: Comment on above: For patients on eltr ombopag therapy, use of Dimension [place] TBIL is not recommended. Protein [Mass/Vol] 5.7 g/dL 6.4-8.2 [facility] Work Phone: Laboratory - Chemistry and C hemistry - challengeon 09-20-2021 ALP [Catalytic activity/Vol] 52 U/L 45-117 [facility] Work Phone: [phone] ALT [Catalytic activity/Vol] 28 U/L 13-56 [facility] Work Phone: [phone] Globulin (S) [Mass/Vol] 3.2 g/dL 2.2-4.2 [facility] Work Phone: [phone] Serum or plasma albumin jj urement (mass/volume)on 09-20-2021 Albumin [Mass/Vol] 2.5 g/dL 3.2-5.0 [facility] Work Phone: Serum or plasma albumin/glob ulin mass ratioon 09-20-2021 Albumin/Globulin [Mass ratio] 0.8 {ratio} 0.9-2.4 [facility] Work Phone: Thin prep Papanicolaou smear with manual screeningon 09-20-2021 Thin prep Papanicolaou smear with manual screening 24 U/L 15-37 [facility] Work Phone: Basophil percentageon 2021 Basophil percentage 2.5 mg/dL 2.5-4.9 [facility] Work Phone: [phone] Laboratory - Chemistry and C hemistry - challengeon 09-19-2021 Magnesium [Mass/Vol] 2.1 mg/dL 1.6-2.6 [facility] Work Phone: No Panel Informationon 09-19 Thyroid Stimulating Hormone (TSH) 0.74 uIU/mL 0.358-3.74 [facility] Work Phone: Bronchoalveolar lavage cultu re with Gram stainon 09-18-2021 Respiratory Culture Negative [facility] Work Phone: Gram stain for investigation of transfusion reactionon 09-18-2021 Microscopic observation Gram stain Nom (Unsp spec) [facility] Work Phone: No Panel Informationon 09-18 Streptococcus pneumoniae Antigen (M [facility] Work Phone: Serum or plasma C reactive p rotein measurement (mass/volume)on 09-18-2021 CRP [Mass/Vol] 172.00 mg/L 0.0-3.0 [facility] Work Phone: Comment on above: C-Reactive Protein ( CRP) provides useful information for thediagnosis, therapy and monitoring of inflammatory processesand associated diseases. For the evaluation of Relative Riskfor Cardiovascular Disease, a High Sensitivity CRP (HSCRP)should be ordered. Vancomycin troughon 09-19-19 Vancomycin trough [Mass/Vol] 14.1 ug/mL 5.0-15.0 [facility] Work Phone: Comment on above: VANCOMYCIN STANDARED DRUG THERAPY TROUGH LEVEL: 5.0 - 15.0 mg/L VANCOMYCIN HIGH INTENSITY THERAPY TROUGH LEVEL: 15.0 - 20.0 mg/L High Intensity therapy recommended for serious lifethreatening infections include:- Jdmpyhjwlx-Wdbifefvvjez-Upnixbwfr (Ventilator/Healtcare Associated)-Sepsis PLEASE CONTACT PHARMACY SERVICES (#[id number]) FOR INTERPRETATIONOF RESULTS. Assessment of wrist artery p atency prior to arterial punctureon 09-17-2021 Arterial patency Wrist artery --pre arterial puncture Positive [facility] Work Phone: [phone] Base excesson 09-17-2021 Base excess Calc (BldV) [Moles/Vol] -2 mmol/L -2-2 [facility] Work Phone: [phone] Basophil percentageon 2021 Basophil percentage 21.8 mmol/L 22-26 [facility] Work Phone: [phone] Basophils/100 WBC (Bld) 88 % 95-99 [facility] Work Phone: [phone] CO2 (BldA) [Partial pressure ]on 09-17-2021 CO2 (Bld) [Partial pressure] 31.7 mm[Hg] 35-45 [facility] Work Phone: No Panel Informationon 09-17 Bedside Blood Gas PEEP 8 [facility] Work Phone: Blood Gas Oxygen Percent 100 [facility] Work Phone: Blood Gas Sample Site L Radial [facility] Work Phone: Blood Gas Specimen Type ART [facility] Work Phone: Blood Gas Total CO2 23 mmol/L [facility] Work Phone: Oxygen Delivery Device BiPAP [facility] Work Phone: Oxygen (BldA) [Partial press ure]on 09-17-2021 Oxygen (Bld) [Partial pressure] 51 mmHG 75-100 [facility] Work Phone: pH measurementon 09-17-2021 pH (Unsp spec) 7.45 [pH] 7.35-7.45 [facility] Work Phone: Absolute lymphocyte counton 09-16-2021 Lymphocytes Auto (Unsp spec) [#/Vol] 0.70 10*3/uL 0.83-4.51 [facility] Work Phone: Basophil percentageon 2021 Lactate [Moles/Vol] 1.8 mmol/L 0.4-2.0 [facility] Work Phone: Basophil percentage 0 SEEN /hpf 0-5 [facility] Work Phone: Lactate [Moles/Vol] 2.2 mmol/L 0.4-2.0 [facility] Work Phone: Comment on above: Critical Result(s) C alled at: 14:10:01 09/16/2021 by: Miriam Grijalva. Results read back by same. Bilirubin [Mass/Vol] 0.20 mg/dL 0.20-1.00 [facility] Work Phone: Comment on above: For patients on eltr ombopag therapy, use of Dimension [place] TBIL is not recommended. Chloride [Moles/Vol] 109 mmol/L 98-107 [facility] Work Phone: Glucose [Mass/Vol] 141 mg/dL 74-106 [facility] Work Phone: Comment on above: Fasting Glucose resu lt greater than or equal to 126 mg/dL suggests DIABETES MELLITUS per A.D.A. criteria. Potassium [Moles/Vol] 3.7 mmol/L 3.5-5.1 [facility] Work [facility]: Protein [Mass/Vol] 6.9 g/dL 6.4-8.2 [facility] Work Phone: Sodium [Moles/Vol] 141 mmol/L 136-145 [facility] Work Phone: Basophils/100 WBC (Bld) 0.5 % 0-1 [facility] Work Phone: Eosinophils/100 WBC (Bld) 0.1 % 0-5 [facility] Work Phone: Neutrophils (Bld) [#/Vol] 6.7 10*3/uL 2.0-7.7 [facility] Work Phone: Neutrophils/100 WBC (Bld) 75.2 % 47-70 [facility] Work Phone: WBC (Bld) [#/Vol] 8.8 10*3/uL 4.4-11.0 [facility] Work Phone: Bilirubin Test strip Ql (U)o n 09-16-2021 Bilirubin Ql (U) Negative Negative [facility] Work Phone: Blood erythrocytes count (nu mber/volume)on 09-16-2021 RBC (Bld) [#/Vol] 4.98 10*6/uL 4.2-5.4 [facility] Work Phone: Blood hemoglobin measurement (mass/volume)on 09-16-2021 Hemoglobin (Bld) [Mass/Vol] 14.2 g/dL 12.0-15.0 [facility] Work Phone: Blood lymphocytes/100 leukoc yteson 09-16-2021 Lymphocytes/100 WBC (Bld) 7.9 % 19-41 [facility] Work Phone: Blood monocytes/100 leukocyt eson 09-16-2021 Monocytes/100 WBC (Bld) 15.6 % 0-10 [facility] Work Phone: Blood platelet mean volumeon 09-16-2021 Platelet mean volume (Bld) [Entitic vol] 8.9 fL 6.2-12.0 [facility] Work Phone: [phone] Determination of erythrocyte mean corpuscular volume (MCV)on 09-16-2021 MCV (RBC) [Entitic vol] 90.8 fL 81-99 [facility] Work Phone: Hematocrit Auto (Bld) [Volum e fraction]on 09-16-2021 Hematocrit (Bld) [Volume fraction] 45.2 % 37-47 [facility] Work Phone: INR in Blood by Coagulation assayon 09-16-2021 INR Coag (Bld) [Relative time] 1.0 {INR} [facility] Work Phone: Ketones Test strip Ql (U)on 09-16-2021 Ketones Ql (U) 5 mg/dl Negative [facility] Work Phone: Laboratory - Chemistry and C hemistry - challengeon 09-16-2021 ALP [Catalytic activity/Vol] 88 U/L 45-117 [facility] Work Phone: ALT [Catalytic activity/Vol] 28 U/L 13-56 [facility] Work Phone: [phone] CO2 [Moles/Vol] 27.0 mmol/L 21.0-32.0 [facility] Work Phone: Globulin (S) [Mass/Vol] 3.3 g/dL 2.2-4.2 [facility] Work Phone: Urea nitrogen/Creatinine [Mass ratio] 38.8 mg/mg 10-20 [facility] Work Phone: Laboratory - Coagulationon 0 09-16-2021 aPTT Coag (Bld) [Time] 30.0 s 24.1-36.2 [facility] Work Phone: PT Coag (PPP) [Time] 13.1 s 11.7-14.[address] Work Phone: Laboratory - Hematology and Cell countson 09-16-2021 Erythrocyte distribution width (RBC) [Entitic vol] 44.8 fL 35.1-43.9 [facility] Work Phone: Erythrocyte distribution width (RBC) [Ratio] 13.4 % 11.6-14.6 [facility] Work Phone: Immature granulocytes/100 WBC (Bld) 0.700 % 0.0-0.9 [facility] Work Phone: Comment on above: IG% - Immature Granu locytes (promyelocytes, myelocytes and metamyelocytes) > 1% indicates that a LEFT SHIFT is Present. MCH (RBC) [Entitic mass] 28.5 pg 27.0-32.0 [facility] Work Phone: Nucleated RBC/100 WBC (Bld) [Ratio] 0 % 0-5 [facility] Work Phone: Laboratory - Microbiology an d Antimicrobial susceptibilityon 09-16-2021 Bacteria identified Cx Nom (Bld) No growth in 5 days. [facility] Work Phone: MCHC Auto (RBC) [Mass/Vol]on 09-16-2021 MCHC (RBC) [Mass/Vol] 31.4 g/dL 32-36 [facility] Work Phone: Mucus LM Ql (Urine sed)on Mucus Ql (Urine sed) 0 SEEN /hpf [facility] Work Phone: [phone] Nitrite Test strip Ql (U)on 09-16-2021 Nitrite Ql (U) Positive Negative [facility] Work Phone: No Panel Informationon 09-16 Estimated Creatinine Clearance Calc 66.30 ml/min [facility] Work Phone: [phone] Estimated GFR (MDRD) Amer 101 mL/min >60 [facility] Work Phone: Comment on above: GFR Calc Estimated GFR (MDRD) Non-Af Amer 83 mL/min >60 [facility] Work Phone: Comment on above: Non- GFR Calc Platelets bldon 09-16-2021 Platelets (Bld) [#/Vol] 373 10*3/uL 150-450 [facility] Work Phone: Protein Test strip Ql (U)on 09-16-2021 Protein Ql (U) 15 mg/dl Negative [facility] Work Phone: Serum or plasma albumin jj urement (mass/volume)on 09-16-2021 Albumin [Mass/Vol] 3.6 g/dL 3.2-5.0 [facility] Work Phone: [phone] Serum or plasma albumin/glob ulin mass ratioon 09-16-2021 Albumin/Globulin [Mass ratio] 1.1 {ratio} 0.9-2.4 [facility] Work Phone: [phone] Serum or plasma calcium jj urement (mass/volume)on 09-16-2021 Calcium [Mass/Vol] 8.8 mg/dL 8.5-10.1 [facility] Work Phone: [phone] Serum or plasma creatinine m easurement (mass/volume)on 09-16-2021 Creatinine [Mass/Vol] 0.75 mg/dL 0.55-1.02 [facility] Work Phone: Comment on above: The validity of the calculated GFR & GFRAA in patients over 70 years has not been determined. Clinical correlation is essential. Serum or plasma urea nitroge n measurement (mass/volume)on 09-16-2021 Urea nitrogen [Mass/Vol] 29 mg/dL 7-18 [facility] Work Phone: [phone] Squamous epithelial cells de tection in urine sediment by light microscopyon 09-16-2021 Epithelial cells.squamous LM Ql (Urine sed) 0 SEEN /hpf 5-10 [facility] Work Phone: Thin prep Papanicolaou smear with manual screeningon 09-16-2021 Thin prep Papanicolaou smear with manual screening 16 U/L 15-37 [facility] Work Phone: Thin prep Papanicolaou smear with manual screening 5 5-15 [facility] Work Phone: Urine blood detectionon 09-03 RBC Ql (U) 10 /ul Negative [facility] Work Phone: RBC Ql (U) 0 SEEN /hpf 0-5 [facility] Work Phone: Urine clarityon 09-16-2021 Clarity (U) Cloudy Clear [facility] Work Phone: Urine color determinationon 09-16-2021 Color (U) Yellow Yellow [facility] Work Phone: Urine glucose detectionon Glucose Ql (U) Normal mg/dl Normal [facility] Work Phone: Urine leukocyte esterase det ection by dipstickon 09-16-2021 Leukocyte esterase Test strip Ql (U) Negative Negative [facility] Work Phone: Urine pHon 09-16-2021 pH (U) 5.0 [pH] 5.0 - 8.0 [facility] Work Phone: Urine sediment bacteria coun t by microscopy (number/high power field)on 09-16-2021 Bacteria LM.HPF (Urine sed) [#/Area] 2 /[HPF] None Seen [facility] Work Phone: Urine specific gravity measu rementon 09-16-2021 Specific gravity (U) [Rel density] 1.025 1.002-1.030 [facility] Work Phone: Urobilinogen Auto test strip Ql (U)on 09-16-2021 Urobilinogen Ql (U) Normal mg/dl Normal [facility] Work Phone: Hepatic function 2000 panelo n 04-09-2021 Albumin [Mass/Vol] 4.4 g/dL 3.2 - 5.2 g/dL [facility] ALP [Catalytic activity/Vol] 100 U/L 40 - 150 U/L [facility] ALT [Catalytic activity/Vol] 22 U/L 0 - 40 U/L [facility] AST [Catalytic activity/Vol] 17 U/L 0 - 45 U/L [facility] Bilirubin [Mass/Vol] 0.2 mg/dL 0.0 - 1 .3 mg/dL [facility] Bilirubin.conjugated [Mass/Vol] mg/dL 0.0 - 0.4 mg/dL [facility] Interpretation and review of laboratory results Normal [facility] Protein [Mass/Vol] 6.5 g/dL 6.0 - 8.0 g/dL [facility] IGG, IGA, IGM IMMUNOGLOBULIN SOrdered By: Huong Jacobs on 04-09-2021 Interpretation and review of laboratory results Abnormal [facility] Laboratory - Chemistry and C hemistry - challengeon 04-09-2021 25-hydroxyvitamin D [Mass/Vol] 64 ng/mL 30 - 100 ng/mL [facility] Comment on above: Vitamin D status: Deficiency: <10 ng/mL Insufficiency: 10-30 ng/mL Sufficiency: 30-100 ng/mL Toxicity: >100 ng/mL Laboratory - Chemistry and C hemistry - challengeOrdered By: Huong Milan on 04-09-2021 IgA [Mass/Vol] 151 mg/dL 84 - 381 mg/dL [facility] IgG [Mass/Vol] 523 mg/dL Low 541 - 1694 mg/dL [facility] IgM [Mass/Vol] 60 mg/dL 43 - 238 mg/dL [facility] Laboratory - Hematology and Cell countson 04-09-2021 Basophils (Bld) [#/Vol] 0.07 10*3/uL [facility] Basophils/100 WBC (Bld) 0.6 % [facility] Eosinophils (Bld) [#/Vol] 0.04 10*3/uL [facility] Eosinophils/100 WBC (Bld) 0.4 % [facility] Erythrocyte distribution width (RBC) [Entitic vol] 13.8 % 11.6 - 14.8 % [facility] Hematocrit (Bld) [Volume fraction] 50.0 % High 36.0 - 46.0 % [facility] Hemoglobin (Bld) [Mass/Vol] 15.4 g/dL 12.0 - 16.0 g/dL [facility] Immature granulocytes (Bld) [#/Vol] 0.12 10*3/uL [facility] Immature granulocytes/100 WBC (Bld) 1.10 % [facility] Comment on above: The IG parameter is the percentage of metamyelocytes, myelocytes and promyelocytes. An immature granulocyte count (IG) of 1% or more suggests the possibility of infection, an IG count of 3% is very likely related to an infection. Lymphocytes (Bld) [#/Vol] 0.94 10*3/uL [facility] Lymphocytes/100 WBC (Bld) 8.4 % [facility] MCH (RBC) [Entitic mass] 28.1 pg 26. 0 - 34.0 pg [facility] MCHC (RBC) [Mass/Vol] 30.8 g/dL Low 31.0 - 37.0 g/dL [facility] MCV (RBC) [Entitic vol] 91.2 fL 80.0 - 100.0 fL [facility] Monocytes (Bld) [#/Vol] 0.93 10*3/uL High [facility] Monocytes/100 WBC (Bld) 8.3 % [facility] Neutrophils (Bld) [#/Vol] 9.12 10*3/uL High [facility] Neutrophils/100 WBC (Bld) 81.2 % [facility] Nucleated RBC (Bld) [#/Vol] 0.00 10*3/uL [facility] Nucleated RBC/100 WBC (Bld) [Ratio] 0.0 % [facility] Platelet mean volume (Bld) [Entitic vol] 9.4 fL 9.4 - 12.4 fL [facility] Platelets (Bld) [#/Vol] 417 10*3/uL High [facility] RBC (Bld) [#/Vol] 5.48 10*6/uL High [facility] ealth WBC (Bld) [#/Vol] 11.22 10*3/uL [facility] No Panel Informationon 04-09 Interpretation and review of laboratory results Abnormal [facility] VITAMIN D, TOTAL, 25-OHon Interpretation and review of laboratory results Normal [facility] Assay performed shahrzad gomez [employer] CLIA methodology. [facility] MR BRAIN WITHOUT CONTRASTon 10-18-2019 No acute intracrania l abnormality. Underlying atrophy and black holes. Stable burden of T2/FLAIR signal abnormalities compatible with demyelination. [employer] Workstation ID: [id number] [facility] EXAMINATION: MR HEATHER Jewell WITHOUT CONTRAST [...] compatible with the patient's diagnosis of demyelination. [facility] Interface, Rad In Fuji Speechq - [...] of T2/FLAIR signal abnormalities compatible with demyelination. [employer] Workstation ID: [id number] [facility] POC Creatinineon 09-28-2018 Creatinine mass conc 0.6 mg/dL 0.4 - 1 .1 mg/dL [facility] Interpretation and review of laboratory results Normal [facility] Comprehensive Metabolic Pane dwight 01-19-2018 Albumin mass conc 4.7 g/dL Invalid Interpretation Code 3.2 - 5.2 g/dL [facility] ALP enzyme act/vol 76 U/L Invalid Interpretation Code 40 - 150 U/L [facility] ALT enzyme act/vol 14 U/L Invalid Interpretation Code 0 - 40 U/L [facility] Anion gap 3 molar conc 17 mmol/L Invalid Interpretation Code 10 - 20 mmol/L [facility] AST enzyme act/vol 15 U/L Invalid Interpretation Code 0 - 45 U/L [facility] Bilirubin mass conc 0.3 mg/dL Invalid Interpretation Code 0 - 1.3 mg/dL [facility] Calcium mass conc 10.2 mg/dL Invalid Interpretation Code 8.4 - 10.2 mg/dL [facility] Chloride molar conc 107 mmol/L Invalid Interpretation Code 98 - 108 mmol/L [facility] Creatinine mass conc 0.47 mg/dL Invalid Interpretation Code 0.4 - 1.1 mg/dL [facility] GFR/1.73 sq M predicted among non-blacks MDRD vol rate/area (S/P/Bld) The eGFR should be used for monitoring renal function only and not for medication dosing. Invalid Interpretation Code [facility] GFR/1.73 sq M.predicted CKD-EPI vol rate/area (S/P/Bld) 108 Invalid Interpretation Code >=60 mL/min/1.73 m2 [facility] Glucose mass conc 96 mg/dL Invalid Interpretation Code 65 - 99 mg/dL [facility] HCO3 molar conc 26 mmol/L Invalid Interpretation Code 21 - 32 mmol/L [facility] Interpretation and review of laboratory results Abnormal Invalid Interpretation Code [facility] Potassium molar conc 4.2 mmol/L Invalid Interpretation Code 3.5 - 5.1 mmol/L [facility] Protein mass conc 6.9 g/dL Invalid Interpretation Code 6 - 8 g/dL [facility] Sodium molar conc 146 mmol/L High 135 - 145 mmol/L [facility] Urea nitrogen mass conc 33 mg/dL High 8 - 25 mg/dL [facility] Urea nitrogen/Creatinine mass ratio 70.2 mg/mg High [facility] Vitamin D, Total, 25-OHon 25-Hydroxyvitamin D2+25-Hydroxyvitamin D3 mass conc 72 ng/mL Invalid Interpretation Code 30 - 100 ng/mL [facility] Comment on above: Vitamin D status: De ficiency: <10 ng/mL Insufficiency: 10-30 ng/mL Sufficiency: 30-100 ng/mL Toxicity: >100 ng/mL Interpretation and review of laboratory results Normal Invalid Interpretation Code [facility] Assay performed usin g [employer] CLIA methodology. Invalid Interpretation Code [facility] CBC and Differentialon 08-25 Creatinine The following orders were created for panel order CBC and Differential. Procedure Abnormality Status --------- ------ CBC Auto Differential[[id number]] Abnormal Final result Please view results for these tests on the individual orders. Invalid Interpretation Code [facility] Comprehensive Metabolic Pane dwight 08-25-2017 Alanine aminotransferase (ALT) 18 U/L Invalid Interpretation Code 0 - 40 U/L [facility] Albumin 4.6 g/dL Invalid Interpretation Code 3.2 - 5.2 g/dL [facility] Alkaline phosphatase (ALP) 82 U/L Invalid Interpretation Code 40 - 150 U/L [facility] Anion gap 19 mmol/L Invalid Interpretation Code 10 - 20 mmol/L [facility] Aspartate aminotransferase (AST) 15 U/L Invalid Interpretation Code 0 - 45 U/L [facility] Bicarbonate (HCO3) 26 mmol/L Invalid Interpretation Code 21 - 32 mmol/L [facility] Bilirubin (total) mg/dL Invalid Interpretation Code 0 - 1.3 mg/dL [facility] BUN/Creatinine Ratio 48.1 mg/mg High 10.0 - 20.0 [facility] Calcium 10.3 mg/dL High 8.4 - 10.2 mg/dL [facility] Chloride 103 mmol/L Invalid Interpretation Code 98 - 108 mmol/L [facility] Creatinine 0.54 mg/dL Invalid Interpretation Code 0.4 - 1.1 mg/dL [facility] eGFR (non-black) The eGFR should be used for monitoring renal function only and not for medication dosing. Invalid Interpretation Code [facility] eGFR (non-black) 104 mL/min/{1.73_m2} Invalid Interpretation Code >=60 [facility] Glucose 86 mg/dL Invalid Interpretation Code 65 - 99 mg/dL [facility] Interpretation and review of laboratory results Abnormal Invalid Interpretation Code [facility] Potassium 4.3 mmol/L Invalid Interpretation Code 3.5 - 5.1 mmol/L [facility] Protein 6.9 g/dL Invalid Interpretation Code 6 - 8 g/dL [facility] Sodium 144 mmol/L Invalid Interpretation Code 135 - 145 mmol/L [facility] Urea nitrogen 26 mg/dL High 8 - 25 mg/dL [facility] Vitamin D, Total, 25-OHon Vit D, 25-Hydroxy 109 ng/mL High 30 - 100 ng/mL [facility] Vitamin D, Total, 25-OH Assay performed using [employer] CLIA methodology. Invalid Interpretation Code [facility] CBC and Differentialon 05-25 Creatinine The following orders were created for panel order CBC and Differential. Procedure Abnormality Status --------- ------ CBC Auto Differential[[id number]] Abnormal Final result Please view results for these tests on the individual orders. Invalid Interpretation Code [facility] Work Phone: Bronchoalveolar lavage cultu re with Gram stain Respiratory Culture Negative [facility] Work Phone: Culture, urine Bacteria identified Cx Nom (U) Mixed Gram Pos & Gram Neg Org [facility] Work Phone: Bacteria identified Cx Nom (U) Yeast [facility] Work Phone: Bacteria identified Cx Nom (U) Escherichia coli [facility] Work Phone: Gram stain for investigation of transfusion reaction Microscopic observation Gram stain Nom (Unsp spec) [facility] Work Phone: Laboratory - Microbiology an d Antimicrobial susceptibility Bacteria identified Cx Nom (Bld) No growth in 5 days. [facility] Work Phone: No Panel Information Streptococcus pneumoniae Antigen (M [facility] Work Phone: Vital Signs Date Time Vital Sign Value Performing Clinician Facility 07-05-2022 11:24-0500 Body height 162.[address] Joan Hughes Work Phone: [facility] 09-28-2021 12:05-0400 SaO2% (BldA) [Mass fraction] 98 % Dr. Joan Hughes Work Phone: [facility] Work Phone: 09-28-2021 09:00-0400 Body temperature 98 [degF] Dr. Joan Hughes Work Phone: [facility] Work Phone: 09-28-2021 09:00-0400 Diastolic blood pressure 79 mm[Hg] Dr. Joan Hughes Work Phone: [facility] Work Phone: 09-28-2021 09:00-0400 Heart rate 100 /min Dr. Joan Hughes Work Phone: [facility] Work Phone: 09-28-2021 09:00-0400 Respiratory rate 14 /min Dr. Joan Hughes Work Phone: [facility] Work Phone: 09-28-2021 09:00-0400 Systolic blood pressure 117 mm[Hg] Dr. Joan Hughes Work Phone: [facility] Work Phone: 09-28-2021 05:32-0400 Body weight 66.[address] Joan Hughes Work Phone: [facility] Work Phone: 09-25-2021 09:36-0400 Inhaled oxygen flow rate 2 L/min Dr. Joan Hughes Work Phone: [facility] Work Phone: 09-24-2021 11:58-0400 Body height 162.[address] Joan Hughes Work Phone: [facility] Work Phone: 09-23-2021 16:35-0400 Inhaled oxygen concentration 41 % Dr. Joan Hughes Work Phone: [facility] Work Phone: 09-16-2021 14:53-0400 Body mass index (BMI) [Ratio] 25.7 kg/m2 Dr. Joan Hughes Work Phone: [facility] Work Phone: 09-16-2021 14:11-0400 Body temperature 99.3 [degF] [facility] Work Phone: 09-16-2021 14:11-0400 Diastolic blood pressure 56 mm[Hg] [facility] Work Phone: 09-16-2021 14:11-0400 Heart rate 114 /min [facility] Work Phone: 09-16-2021 14:11-0400 Respiratory rate 16 /min [facility] Work Phone: 09-16-2021 14:11-0400 SaO2% (BldA) [Mass fraction] 95 % [facility] Work Phone: 09-16-2021 14:11-0400 Systolic blood pressure 132 mm[Hg] [facility] Work Phone: 09-16-2021 13:00-0400 Body height 162.56 cm [facility] Work Phone: 09-16-2021 13:00-0400 Body mass index (BMI) [Ratio] 26.8 kg/m2 [facility] Work Phone: 09-16-2021 13:00-0400 Body weight 70.8 kg [facility] Work Phone: 11-05-2021 13:25-0400 Body temperature 97.9 [degF] Chair 7 [facility] 04-09-2021 13:25-0400 Diastolic blood pressure 80 mm[Hg] Chair 7 [facility] 04-09-2021 13:25-0400 Heart rate 123 /min Chair 7 [facility] 04-09-2021 13:25-0400 SaO2% (BldA) [Mass fraction] 97 % Chair 7 [facility] 04-09-2021 13:25-0400 Systolic blood pressure 133 mm[Hg] Chair 7 [facility] 04-09-2021 11:06-0400 Respiratory rate 16 /min Chair 7 [facility] 04-09-2021 07:57-0400 Body height 162.6 cm Willard Epperson MD Work Phone: [facility] 04-09-2021 07:57-0400 Body mass index (BMI) [Ratio] 25.06 kg/m2 Willard Epperson MD Work Phone: [facility] 04-09-2021 07:57-0400 Body weight 66.22 kg Willard Epperson MD Work Phone: [facility] 04-09-2021 07:57-0400 Diastolic blood pressure 65 mm[Hg] Willard Epperson MD Work Phone: [facility] 04-09-2021 07:57-0400 Heart rate 111 /min Willard Epperson MD Work Phone: [facility] 04-09-2021 07:57-0400 Systolic blood pressure 123 mm[Hg] Willard Epperson MD Work Phone: [facility] 10-16-2020 12:50-0400 Body temperature 98.29 [degF] Chair 2 [facility] 10-16-2020 12:50-0400 Diastolic blood pressure 63 mm[Hg] Chair 2 [facility] 10-16-2020 12:50-0400 Heart rate 130 /min Chair 2 [facility] 10-16-2020 12:50-0400 SaO2% (BldA) [Mass fraction] 96 % Chair 2 [facility] 10-16-2020 12:50-0400 Systolic blood pressure 128 mm[Hg] Chair 2 [facility] 10-16-2020 11:34-0400 Respiratory rate 16 /min Chair 2 [facility] 04-17-2020 14:51-0500 BP Diastolic 70 mm[Hg] Chair 2 [facility] 04-17-2020 14:51-0500 BP Systolic 136 mm[Hg] Chair 2 [facility] 04-17-2020 14:51-0500 Pulse (Heart Rate) 126 /min Chair 2 [facility] 04-17-2020 14:51-0500 Pulse Oximetry 97 % Chair 2 [facility] 04-17-2020 14:51-0500 Respiratory Rate 16 /min Chair 2 [facility] 04-17-2020 14:48-0500 Body Temperature 98.4 [degF] Chair 2 [facility] 04-17-2020 10:41-0500 BMI (Body Mass Index) 22.31 kg/m2 Willard Epperson [facility] 04-17-2020 10:41-0500 Body weight 58.97 kg Willard Epperson [facility] 04-17-2020 10:41-0500 BP Diastolic 80 mm[Hg] Willard Epperson [facility] 04-17-2020 10:41-0500 BP Systolic 131 mm[Hg] Willard Epperson [facility] 04-17-2020 10:41-0500 Height 162.6 cm Willard Epperson [facility] 04-17-2020 10:41-0500 Pulse (Heart Rate) 86 /min Willard Epperson [facility] 10-18-2019 13:54-0400 Body Temperature 97.5 [degF] Chair 1 [facility] 10-18-2019 13:54-0400 BP Diastolic 79 mm[Hg] Chair 1 [facility] 10-18-2019 13:54-0400 BP Systolic 137 mm[Hg] Chair 1 [facility] 10-18-2019 13:54-0400 Pulse (Heart Rate) 112 /min Chair 1 [facility] 10-18-2019 13:54-0400 Pulse Oximetry 95 % Chair 1 [facility] 10-18-2019 13:54-0400 Respiratory Rate 20 /min Chair 1 [facility] 10-18-2019 07:03-0400 BMI (Body Mass Index) 22.31 kg/m2 Willard Epperson [facility] 10-18-2019 07:03-0400 Body weight 58.97 kg Willard Epperson [facility] 10-18-2019 07:03-0400 Height 162.6 cm Willard Epperson [facility] 04-12-2019 12:17-0500 BMI (Body Mass Index) 22.31 kg/m2 Willard Epperson [facility] 04-12-2019 12:17-0500 Body weight 58.97 kg Willard Epperson [facility] 04-12-2019 12:17-0500 BP Diastolic 78 mm[Hg] Willard Epperson [facility] 04-12-2019 12:17-0500 BP Systolic 124 mm[Hg] Willard Epperson [facility] 04-12-2019 12:17-0500 Height 162.6 cm Willard Epperson [facility] 04-12-2019 12:17-0500 Pulse (Heart Rate) 106 /min Willard Epperson [facility] 04-12-2019 12:12-0500 Body Temperature 97.9 [degF] Chair 5 [facility] 04-12-2019 12:12-0500 BP Diastolic 81 mm[Hg] Chair 5 [facility] 04-12-2019 12:12-0500 BP Systolic 134 mm[Hg] Chair 5 [facility] 04-12-2019 12:12-0500 Pulse (Heart Rate) 104 /min Chair 5 [facility] 04-12-2019 12:12-0500 Pulse Oximetry 97 % Chair 5 [facility] 04-12-2019 12:12-0500 Respiratory Rate 16 /min Chair 5 [facility] 10-12-2018 13:25-0400 Body Temperature 98.1 [degF] Chair 1 [facility] 10-12-2018 13:25-0400 BP Diastolic 74 mm[Hg] Chair 1 [facility] 10-12-2018 13:25-0400 BP Systolic 137 mm[Hg] Chair 1 [facility] 10-12-2018 13:25-0400 Pulse (Heart Rate) 130 /min Chair 1 [facility] 10-12-2018 13:25-0400 Pulse Oximetry 95 % Chair 1 [facility] 10-12-2018 10:14-0400 Respiratory Rate 14 /min Chair 1 [facility] 09-28-2018 15:44-0400 BMI (Body Mass Index) 22.31 kg/m2 Willard Epperson [facility] 09-28-2018 15:44-0400 Body weight 58.97 kg Willard Epperson [facility] 09-28-2018 15:44-0400 BP Diastolic 80 mm[Hg] Willard Epperson [facility] 09-28-2018 15:44-0400 BP Systolic 145 mm[Hg] Willard Epperson [facility] 09-28-2018 15:44-0400 Height 162.6 cm Willard Epperson [facility] 09-28-2018 15:44-0400 Pulse (Heart Rate) 89 /min Willard Epperson [facility] 09-28-2018 11:38-0400 BMI (Body Mass Index) 22.31 kg/m2 Willard Epperson [facility] 09-28-2018 11:38-0400 Height 162.6 cm Willard Epperson [facility] 09-28-2018 11:38-0400 Weight 58.97 kg Willard Epperson [facility] 01-19-2018 11:34-0400 BMI (Body Mass Index) 20.77 kg/m2 Willard Epperson [facility] 01-19-2018 11:34-0400 BP Diastolic 70 mm[Hg] Willard Epperson [facility] 01-19-2018 11:34-0400 BP Systolic 118 mm[Hg] Willard Epperson [facility] 01-19-2018 11:34-0400 Height 162.6 cm Willard Epperson [facility] 01-19-2018 11:34-0400 Pulse (Heart Rate) 76 /min Willard Epperson [facility] 01-19-2018 11:34-0400 Weight 54.88 kg Willard Epperson [facility] 10-11-2017 14:08-0400 Body Temperature 98.1 [degF] Chair 1 [facility] 10-11-2017 14:08-0400 BP Diastolic 79 mm[Hg] Chair 1 [facility] 10-11-2017 14:08-0400 BP Systolic 131 mm[Hg] Chair 1 [facility] 10-11-2017 14:08-0400 Pulse (Heart Rate) 106 /min Chair 1 [facility] 10-11-2017 14:08-0400 Pulse Oximetry 95 % Chair 1 [facility] 10-11-2017 14:08-0400 Respiratory Rate 14 /min Chair 1 [facility] 08-25-2017 11:31-0400 BMI (Body Mass Index) 22.31 kg/m2 Willard Epperson [facility] 08-25-2017 11:31-0400 BP Diastolic 83 mm[Hg] Willard Epperson [facility] 08-25-2017 11:31-0400 BP Systolic 137 mm[Hg] Willard Epperson [facility] 08-25-2017 11:31-0400 Height 162.6 cm Willard Epperson [facility] 08-25-2017 11:31-0400 Pulse (Heart Rate) 81 /min Willard Epperson [facility] 08-25-2017 11:31-0400 Weight 58.97 kg Willard Epperson [facility] 05-25-2017 09:23-0500 BMI (Body Mass Index) 22.49 kg/m2 Willard Epperson [facility] Work Phone: 05-25-2017 09:23-0500 BP Diastolic 74 mm[Hg] Willard Epperson [facility] Work Phone: 05-25-2017 09:23-0500 BP Systolic 104 mm[Hg] Willard Epperson [facility] Work Phone: 05-25-2017 09:23-0500 Height 162.6 cm Willard Epperson [facility] Work Phone: 05-25-2017 09:23-0500 Pulse (Heart Rate) 106 /min Willard Epperson [facility] Work Phone: 05-25-2017 09:23-0500 Weight 59.42 kg Willard Epperson [facility] Work Phone: 05-04-2017 13:10-0500 Body Temperature 98.29 [degF] Physician No [facility] Work Phone: 05-04-2017 13:10-0500 BP Diastolic 77 mm[Hg] Physician No [facility] Work Phone: 05-04-2017 13:10-0500 BP Systolic 121 mm[Hg] Physician No [facility] Work Phone: 05-04-2017 13:10-0500 Pulse (Heart Rate) 104 /min Physician No [facility] Work Phone: 05-04-2017 13:10-0500 Pulse Oximetry 96 % Physician No [facility] Work Phone: 05-04-2017 11:55-0500 Respiratory Rate 14 /min Physician No [facility] Work Phone: 04-13-2017 16:00-0500 Body Temperature 98.01 [degF] Physician No [facility] Work Phone: 04-13-2017 16:00-0500 BP Diastolic 77 mm[Hg] Physician No [facility] Work Phone: 04-13-2017 16:00-0500 BP Systolic 137 mm[Hg] Physician No [facility] Work Phone: 04-13-2017 16:00-0500 Pulse (Heart Rate) 115 /min Physician No [facility] Work Phone: 04-13-2017 16:00-0500 Pulse Oximetry 96 % Physician No [facility] Work Phone: 04-13-2017 16:00-0500 Respiratory Rate 16 /min Physician No [facility] Work Phone: 02-13-2017 09:07-0400 BMI (Body Mass Index) 21.8 kg/m2 Willardben Epperson [facility] Work Phone: 02-13-2017 09:07-0400 BP Diastolic 81 mm[Hg] Willard Epperson [facility] Work Phone: 02-13-2017 09:07-0400 BP Systolic 145 mm[Hg] Willard Epperson [facility] Work Phone: 02-13-2017 09:07-0400 Height 162.6 cm Willard Epperson [facility] Work Phone: 02-13-2017 09:07-0400 Pulse (Heart Rate) 73 /min Willard Epperson [facility] Work Phone: 02-13-2017 09:07-0400 Weight 57.61 kg Willard Epperson [facility] Work Phone: Encounters Encounter Date Encounter Type Care Provider Facility Start: 12-16-2024 ambulatory Joan Dorianck Facilit y:[facility] Start: 12-16-2024 Registered Referred Breanne Ruiz MD [facility] Start: 12-13-2024 ambulatory Joan Elderbrock Facilit y:[facility] Start: 12[facility]13[facility]20[facility]: 12-04-[facility]24 ambulatory Joan Dorianck Facilit y:[facility] Start: 12-04-2024 Registered Referred Breanne Ruiz MD -[facility] Start: 11-15-2024 ambulatory Joan Hughes Facilit y:[facility] Start: 11-15-2024 Registered Referred Breanne Ruiz MD -[facility] Start: 11-07-2024 ambulatory Joan Hughes Facilit y:[facility] Start: 11-07-2024 [facility] Start: 11-05-2024 ambulatory Joan Hughes Facilit y:[facility] Start: 11-05-2024 Registered Referred Britney Elin [employer] -[facility] Start: 10-11-2024 End: 10-11-[address] Joan Hughes MD Work Phone: [facility] Start: 10-11-2024 End: 10-11-2024 Patient encounter procedure Britneyrose Worthington -[facility] Work Phone: Start: 10-11-2024 End: 10-11-[address] Joan Hughes MD Work Phone: [facility] Work Phone: Start: 10-11-2024 End: 10-11-2024 Departed Referred Britney Worthington YARN WASHER-C -[facility] Start: 10-11-2024 Registered Referred Britney Elin YARN WASHER-C -[facility] Start: 10-11-2024 End: 10-11-2024 ambulatory Joan Hughes Facility:[facility] Start: 10-08-2024 End: 10-08-[address] Joan Hughes MD Work Phone: [facility] Work Phone: Start: 10-08-2024 End: 10-08-2024 [facility] Start: 10-07-2024 End: 10-08-[address] Joan Hughes MD Work Phone: [facility] Start: 10-07-2024 End: 10-07-2024 Patient encounter procedure Britney Worthington YARN WASHER-Aysha -[facility] Work Phone: Start: 09-04-2024 End: 09-04-2024 [facility] Start: 09-04-2024 [facility] Start: 09-03-2024 End: 09-04-2024 ambulatory Efewtracy Vange OLS Facility:[facility] Start: 09-03-2024 End: 09-03-[address] Breanne Ruiz MD -[facility] Work Phone: Start: 09-03-2024 End: 09-03-2024 [facility] Start: 09-03-2024 [facility] Start: 09-03-2024 End: 09-03-2024 ambulatory Efewlalitabe Isaelmichaele OLS Facility:[facility] Start: 08-19-2024 End: 08-19-2024 ambulatory Britney Worthington NP Facility:[facility] Start: 08-19-2024 End: 08-19-2024 Patient encounter procedure Britney Worthington YARN WASHER- -[facility] Work Phone: Start: 08-19-2024 End: 08-19-[address] Joan Hughes MD Work Phone: [facility] Work Phone: Start: 08-19-2024 End: 08-19-2024 [facility] Start: 08-19-2024 End: 08-19-2024 ambulatory Efewlalitabe Cierae OLS Facility:[facility] Start: 08-06-2024 End: 08-06-[address] Joan Hughes MD Work Phone: [facility] Work Phone: Start: 08-06-2024 End: 08-06-2024 [facility] Start: 08-06-2024 [facility] Start: 08-05-2024 End: 08-06-2024 ambulatory Efewongbe Isaelghe OLS Facility:[facility] Start: 08-05-2024 End: 08-05-2024 Patient encounter procedure Britney Worthington YARN WASHER-[facility] Work Phone: Start: 07-09-2024 End: 07-09-[address] Breanne Ruiz MD -[facility] Work Phone: Start: 07-09-2024 End: 07-09-2024 ambulatory Efewongbe Cierae Facility:[facility] Start: 07-09-2024 [facility] Start: 06-18-2024 End: 06-18-2024 ambulatory Britney Worthington YARN WASHER Facility:[facility] Start: 06-18-2024 End: 06-18-2024 Patient [facility] Start: 06-11-2024 ambulatory Efewongbe Isaelghe OLS Fa cility:[facility] Start: 06-11-2024 [facility] Start: 06-07-2024 End: 06-07-2024 ambulatory Britney Worthington YARN WASHER Facility:[facility] Start: 06-07-2024 End: 06-07-2024 Patient encounter procedure [facility] Start: 05-07-2024 End: 05-07-2024 ambulatory Efewongbe Oleghe Facility:[facility] Start: 05-07-2024 End: 05-07-2024 ambulatory Efewongbe Oleghe OLS Facility:[facility] Start: 05-01-2024 End: 05-01-2024 ambulatory [facility] Facility:[facility] Start: 04-15-2024 End: 04-15-2024 ambulatory Efewongbe Oleghe OLS Facility:[facility] Start: 04-10-2024 End: 04-10-2024 ambulatory Britney Worthington YARN WASHER Facility:[facility] Start: 04-09-2024 End: 04-09-2024 ambulatory Breanne Ruiz OLS Facility:[facility] Start: 03-28-2024 End: 03-28-2024 ambulatory Joan Hughes Facility:[facility] Start: 03-19-2024 End: 03-19-2024 ambulatory Joan Ashleyalexanderrafael Facility:[facility] Start: 03-07-2024 ambulatory Breanne Ruiz OLS Fa cility:[facility] Start: 03-05-2024 End: 03-05-2024 ambulatory Joan Hughes Facility:[facility] Start: 02-27-2024 ambulatory Breanne Vange OLS Fa cility:[facility] Start: 02-07-2024 End: 02-07-2024 ambulatory Joan Hughes Facility:[facility] Start: 02-06-2024 ambulatory Joan Hughes Facilit y:[facility] Start: 01-22-2024 ambulatory Joan Hughes Facilit y:[facility] Start: 01-09-2024 End: 01-10-2024 ambulatory Joan Hughes Facility:[facility] Start: 01-09-2024 End: 01-09-2024 ambulatory Joan Dionanalilia Facility:[facility] Start: 09-12-2023 End: 09-12-[address] Joan Hughes Work Phone: [facility] Work Phone: Start: 09-05-2023 End: 09-05-[address] Joan Hughes Work Phone: [facility] Work Phone: Start: 09-05-2023 End: 09-05-[address] Joan Hughes Work Phone: [facility] Start: 08-14-2023 End: 08-14-[address] Joan Hughes Work Phone: [facility] Work Phone: Start: 08-10-2023 End: 08-10-[address] Joan Hughes Work Phone: [facility] Start: 08-10-[address] Joan lacy Work Phone: [facility] Start: 08-08-2023 End: 08-08-[address] Joan Hughes Work Phone: [facility] Work Phone: Start: 08-08-2023 End: 08-08-[address] Joan Hughes Work Phone: [facility] Start: 07-17-2023 End: 07-17-[address] Joan Hughes Work Phone: [facility] Work Phone: Start: 07-17-2023 End: 07-17-[address] Joan Hughes Work Phone: [facility] Start: 07-11-2023 End: 07-11-[address] Joan Hughes Work Phone: [facility] Work Phone: Start: 07-03-2023 End: 07-03-[address] Joan Hughes Work Phone: [facility] Work Phone: Start: 07-03-2023 End: 07-03-[address] Joan Hughes Work Phone: [facility] Start: 07-03-[address] Joan lacy Work Phone: [facility] Start: 06-26-2023 End: 06-26-[address] Joan Hughes Work Phone: [facility] Work Phone: Start: 06-08-2023 End: 06-08-[address] Joan Hughes Work Phone: [facility] Work Phone: Start: 06-06-2023 End: 06-06-[address] Joan Hughes Work Phone: [facility] Work Phone: Start: 06-06-2023 End: 06-06-[address] Joan Hughes Work Phone: [facility] Start: 05-09-2023 End: 05-09-[address] Joan Hughes Work Phone: [facility] Work Phone: Start: 05-09-2023 End: 05-09-[address] Joan Hughes Work Phone: [facility] Work Phone: Start: 05-09-2023 End: 05-09-[address] Joan Hughes Work Phone: [facility] Start: 05-01-2023 End: 05-01-[address] Joan Hughes Work Phone: [facility] Work Phone: Start: 03-14-2023 End: 03-14-[address] Joan Hughes Work Phone: [facility] Work Phone: Start: 03-10-2023 End: 03-10-[address] Joan Hughes Work Phone: [facility] Work Phone: Start: 02-27-2023 End: 02-27-[address] Joan Hughes Work Phone: [facility] Work Phone: Start: 02-22-2023 End: 02-22-2023 [...] 02-13-[address] Joan Hughes Work Phone: [facility] Work Phone: Start: 02-13-2023 End: 02-13-[address] Joan Hughes Work Phone: [facility] Start: 02-13-[address] Joan lacy Work Phone: [facility] Start: 02-07-2023 End: 02-07-[address] Joan Hughes Work Phone: [facility] Work Phone: Start: 02-07-2023 End: 02-07-[address] Joan Hughes Work Phone: [facility] Start: 01-24-2023 End: 01-24-[address] Joan Hughes Work Phone: [facility] Start: 01-24-[address] Joan lacy Work Phone: [facility] Start: 01-10-2023 End: 01-10-[address] Joan Hughes Work Phone: [facility] Work Phone: Start: 01-10-2023 End: 01-10-[address] Joan Hughes Work Phone: [facility] Start: 01-10-[address] Joan lacy Work Phone: [facility] Start: 01-03-2023 End: 01-03-[address] Joan Hughes Work Phone: [facility] Work Phone: Start: 12-27-2022 End: 12-27-[address] Joan Hughes Work Phone: [facility] Work Phone: Start: 12-27-2022 End: 12-27-[address] Joan Hughes Work Phone: [facility] Start: 12-27-[address] Joan lacy Work Phone: [facility] Start: 12-23-2022 End: 12-23-[address] Joan Hughes Work Phone: [facility] Work Phone: Start: 12-13-2022 End: 12-13-[address] Joan Hughes Work Phone: [facility] Work Phone: Start: 12-13-2022 End: 12-13-[address] Joan Hughes Work Phone: [facility] Start: 12-13-[address] Joan lacy Work Phone: [facility] Start: 11-29-2022 End: 11-29-[address] Joan Hughes Work Phone: [facility] Work Phone: Start: 11-29-2022 End: 11-29-2022 Departed [...] encounter procedure Dr. Joan Hughes Work Phone: [facility] Work Phone: Start: 11-01-2022 End: 11-01-[address] Joan Hughes Work Phone: [facility] Work Phone: Start: 11-01-2022 End: 11-01-[address] Joan Hughes Work Phone: [facility] Start: 10-27-2022 End: 10-27-[address] Joan Hughes Work Phone: [facility] Work Phone: Start: 10-18-2022 End: 10-18-[address] Joan Hughes Work Phone: [facility] Start: 10-18-[address] Joan lacy Work Phone: [facility] Start: 10-04-2022 End: 10-04-[address] Joan Hughes Work Phone: [facility] Work Phone: Start: 10-04-2022 End: 10-04-[address] Joan Hughes Work Phone: [facility] Start: 09-20-2022 End: 09-20-[address] Joan Hughes Work Phone: [facility] Work Phone: Start: 09-20-2022 End: 09-20-[address] Joan Hughes Work Phone: [facility] Start: 09-20-[address] Joan lacy Work Phone: [facility] Start: 09-06-2022 End: 09-06-[address] Joan Hughes Work Phone: [facility] Start: 09-06-2022 End: 09-06-[address] Joan Hughes Work Phone: [facility] Work Phone: Start: 09-06-2022 End: 09-06-[address] Joan Hughes Work Phone: [facility] Start: 09-06-[address] Joan lacy Work Phone: [facility] Start: 08-23-2022 End: 08-23-[address] Joan Hughes Work Phone: [facility] Start: 08-23-2022 End: 08-23-[address] Joan Hughes Work Phone: [facility] Work Phone: Start: 08-23-2022 End: 08-23-[address] Joan Hughes Work Phone: [facility] Start: 08-23-[address] Joan lacy Work Phone: [facility] Start: 08-09-2022 End: 08-09-[address] Joan Hughes Work Phone: [facility] Work Phone: Start: 08-09-2022 End: 08-09-[address] Joan Hughes Work Phone: [facility] Start: 08-09-[address] Joan lacy Work Phone: [facility] Start: 07-26-2022 End: 07-26-[address] Joan Hughes Work Phone: [facility] Work Phone: Start: 07-26-2022 End: 07-26-[address] Joan Hughes Work Phone: [facility] Start: 07-26-[address] Joan lacy Work Phone: [facility] Start: 07-13-2022 End: 07-13-[address] Joan Hughes Work Phone: [facility] Work Phone: Start: 07-13-2022 End: 07-13-[address] Joan Hughes Work Phone: [facility] Start: 07-13-[address] Joan lacy Work Phone: [facility] Start: 07-12-2022 End: 07-12-[address] Joan Hughes Work Phone: [facility] Start: 07-12-2022 End: 07-12-[address] Joan Hughes Work Phone: [facility] Work Phone: Start: 07-12-2022 End: 07-12-[address] Joan Hughes Work Phone: [facility] Start: 07-04-2022 End: 07-04-[address] Joan Hughes Work Phone: [facility] Start: 06-28-2022 End: 06-28-[address] Joan Hughes Work Phone: [facility] Work Phone: Start: 06-28-2022 End: 06-28-[address] Joan Hughes Work Phone: [facility] Start: 06-27-2022 End: 06-27-[address] Joan Hughes Work Phone: [facility] Start: 06-23-2022 End: 06-23-2022 Telemedicine consultation with patient Willard Epperson MD Work Phone: [facility] Comment on above: Multiple sclerosis, primary progressive (HCC) (Primary Dx) Start: 06-14-2022 End: 06-14-[address] Joan Hughes Work Phone: [facility] Start: 06-14-[address] Joan lacy Work Phone: [facility] Start: 06-03-2022 End: 06-03-[address] Joan Hughes Work Phone: [facility] Start: 06-03-2022 End: 06-03-[address] Joan Hughes Work Phone: [facility] Work Phone: Start: 06-03-2022 End: 06-03-[address] Joan Hughes Work Phone: [facility] Start: 06-03-[address] Joan lacy Work Phone: [facility] Start: 06-01-2022 End: 06-01-[address] Joan Hughes Work Phone: [facility] Work Phone: Start: 06-01-2022 End: 06-01-2022 Departed [...] 05-27-[address] Joan Hughes Work Phone: [facility] Work Phone: Start: 05-27-2022 End: 05-27-[address] Joan Hughes Work Phone: [facility] Start: 05-27-[address] Joan lacy Work Phone: [facility] Start: 05-17-2022 End: 05-17-[address] Joan Hughes Work Phone: [facility] Work Phone: Start: 05-17-2022 End: 05-17-[address] Joan Hughes Work Phone: [facility] Start: 05-17-[address] Joan lacy Work Phone: [facility] Start: 05-03-2022 End: 05-03-[address] Joan Hughes Work Phone: [facility] Work Phone: Start: 05-03-2022 End: 05-03-[address] Joan Hughes Work Phone: [facility] Start: 04-19-2022 End: 04-19-[address] Joan Hughes Work Phone: [facility] Start: 04-19-[address] Joan lacy Work Phone: [facility] Start: 04-09-2022 End: 04-09-[address] Joan Hughes Work Phone: [facility] Start: 04-05-2022 End: 04-05-[address] Joan Hughes Work Phone: [facility] Start: 04-05-2022 End: 04-05-[address] Joan Hughes Work Phone: [facility] Work Phone: Start: 04-05-2022 End: 04-05-[address] Joan Hughes Work Phone: [facility] Start: 04-05-[address] Joan lacy Work Phone: [facility] Start: 03-22-2022 End: 03-22-[address] Joan Hughes Work Phone: [facility] Work Phone: Start: 03-22-2022 End: 03-22-[address] Joan Hughes Work Phone: [facility] Start: 03-22-[address] Joan lacy Work Phone: [facility] Start: 03-08-2022 End: 03-08-[address] Joan Hughes Work Phone: [facility] Work Phone: Start: 03-08-2022 End: 03-08-[address] Joan Hughes Work Phone: [facility] Start: 02-22-2022 End: 02-22-[address] Joan Hughes Work Phone: [facility] Work Phone: Start: 02-22-2022 End: 02-22-[address] Joan Hughes Work Phone: [facility] Start: 02-22-[address] Joan lacy Work Phone: [facility] Start: 02-17-2022 End: 02-17-[address] Joan Hughes Work Phone: [facility] Start: 02-08-2022 End: 02-08-[address] Joan Hughes Work Phone: [facility] Work Phone: Start: 02-08-2022 End: 02-08-[address] Joan Hughes Work Phone: [facility] Start: 02-08-[address] Joan lacy Work Phone: [facility] Start: 01-25-2022 End: 01-25-[address] Joan Hughes Work Phone: [facility] Work Phone: Start: 01-25-2022 End: 01-25-[address] Joan Hughes Work Phone: [facility] Start: 01-25-[address] Joan lacy Work Phone: [facility] Start: 01-14-2022 ambulatory [facility] Start: 01-11-2022 End: 01-11-[address] Joan Hughes Work Phone: [facility] Work Phone: Start: 01-11-2022 End: 01-11-[address] Joan Hughes Work Phone: [facility] Start: 12-28-2021 End: 12-28-[address] Joan Hughes Work Phone: [facility] Start: 12-14-2021 End: 12-14-[address] Joan Hughes Work Phone: [facility] Start: 12-01-2021 ambulatory Joan villanueva MD Work Phone: [facility] [place] Start: 11-30-2021 End: 11-30-[address] Joan Hughes Work Phone: [facility] Start: 11-16-2021 End: 11-16-[address] Joan Hughes Work Phone: [facility] Start: 11-16-[address] Joan lacy Work Phone: [facility] Start: 11-13-2021 End: 11-13-[address] Joan Hughes Work Phone: [facility] Start: 11-12-2021 End: 11-12-[address] Joan Hughes Work Phone: [facility] Start: 11-02-2021 End: 11-02-[address] Joan Hughes Work Phone: [facility] Start: 11-02-[address] Joan lacy Work Phone: [facility] Start: 10-25-2021 End: 10-25-[address] Joan Hughes Work Phone: [facility] Start: 10-25-[address] Joan lacy Work Phone: [facility] Start: 10-18-2021 End: 10-18-[address] Joan Hughes Work Phone: [facility] Start: 10-18-[address] Joan lacy Work Phone: [facility] Start: 10-11-2021 End: 10-11-[address] Joan Hughes Work Phone: [facility] Start: 10-08-2021 End: 10-08-[address] Joan Hughes Work Phone: [facility] Start: 09-28-2021 Non-patient / Non-visit Dr. Michael Hughes Work Phone: [facility] Start: 09-27-2021 Non-patient / Non-visit Dr. Michael Hughes Work Phone: [facility] Start: 09-26-2021 Non-patient / Non-visit Dr. Michael Hughes Work Phone: [facility] Start: 09-25-2021 Non-patient / Non-visit Dr. Michael Hughes Work Phone: [facility] Start: 09-25-2021 Non-patient / Non-visit Dr. Michael Hughes Work Phone: [facility] Start: 09-24-2021 Non-patient / Non-visit Dr. Michael Hughes Work Phone: [facility] Start: 09-24-2021 Non-patient / Non-visit Dr. Michael Hughes Work Phone: [facility] Start: 09-23-2021 Non-patient / Non-visit Dr. Michael perry [employer] Work Phone: [facility] Start: 09-23-2021 Non-patient / Non-visit Dr. Michael perry [employer] Work Phone: [facility] Start: 09-22-2021 Non-patient / Non-visit Dr. Michael perry [employer] Work Phone: [facility] Start: 09-22-2021 Non-patient / Non-visit Dr. Michael perry [employer] Work Phone: [facility] Start: 09-21-2021 Coordination of care plan Mer Prado RN [facility] Start: 09-21-2021 Non-patient / Non-visit Dr. Michael perry [employer] Work Phone: [facility] Start: 09-21-2021 Non-patient / Non-visit Dr. Michael perry [employer] Work Phone: [facility] Start: 09-20-2021 Non-patient / Non-visit Dr. Michael perry [employer] Work Phone: [facility] Start: 09-20-2021 Non-patient / Non-visit Dr. Michael perry [employer] Work Phone: [facility] Start: 09-19-2021 Non-patient / Non-visit Dr. Michael perry [employer] Work Phone: [facility] Start: 09-19-2021 Non-patient / Non-visit Dr. Michael perry [employer] Work Phone: [facility] Start: 09-18-2021 Non-patient / Non-visit Dr. Michael perry [employer] Work Phone: [facility] Start: 04-15-2022 Non-patient / Non-visit Dr. Michael Hughes Work Phone: [facility] Start: 09-16-2021 Non-patient / Non-visit Dr. Michael Hughes Work Phone: [facility] Start: 09-16-2021 End: 09-28-2021 Evaluation and management of inpatient [facility] 3 Start: 07-22-[address] [facility] Ambulatory Start: 04-09-2021 End: 04-13-2021 ambulatory [facility] Start: 04-09-2021 End: 04-09-2021 Office outpatient visit 40 minutes Willard Epperson MD Work Phone: [facility] Comment on above: Multiple sclerosis, primary progressive (HCC) (Primary Dx); Vitamin D deficiency; Spasticity; Ataxia; Cognitive impairment Start: 04-09-2021 End: 04-09-2021 ambulatory Willard Epperson MD Work Phone: [facility] Comment on above: Multiple sclerosis, primary progressive (HCC) (Primary Dx); Multiple sclerosis (HCC) Start: 04-08-2021 Coordination of care plan Zahra Pratt RN [facility] Start: 01-08-2021 End: 01-08-2021 Refill Danyell Cardoso MA [facility] Comment on above: Vitamin D deficiency Start: 10-29-2020 End: 10-29-2020 Orders Only Willard Epperson MD Work Phone: [facility] Comment on above: Multiple sclerosis, primary progressive (HCC) (Primary Dx) Start: 10-16-2020 End: 10-20-2020 ambulatory WILLARD EPPERSON [facility] Start: 10-16-2020 End: 10-16-2020 Office outpatient visit 25 minutes Willard Epperson MD Work Phone: [facility] Comment on above: Multiple sclerosis, primary progressive (HCC) (Primary Dx); Vitamin D deficiency; Paresis of lower extremity (HCC); History of gait disorder Start: 10-16-2020 End: 10-16-2020 ambulatory WILLARD EPPERSON [facility] Start: 10-16-2020 End: 10-16-2020 ambulatory Willard Epperson MD Work Phone: [facility] Comment on above: Multiple sclerosis, primary progressive (HCC) (Primary Dx) Start: 10-13-2020 End: 10-13-2020 Orders Only Willard Epperson MD Work Phone: [facility] Start: 10-12-2020 End: 10-12-2020 Coordination of care plan Fifi Guillermo RN [facility] Start: 10-07-2020 End: 10-07-2020 Coordination of care plan Fifi Guillermo RN [facility] Start: 08-06-2020 End: 08-06-2020 Orders Only Hermila Bowen Work Phone: [facility] Start: 04-21-2020 End: 04-21-2020 Documentation procedure Jeanne Hilario [facility] Start: 04-17-2020 End: 04-17-2020 ambulatory WILLARD EPPERSON [facility] Start: 04-17-2020 End: 04-17-2020 Office outpatient visit 25 minutes Willard Epperson Work Phone: [facility] Comment on above: Multiple sclerosis ( HCC) (Primary Dx); Fatigue, unspecified type; Orthostasis; Falls frequently Start: 04-17-2020 End: 04-17-2020 Patient encounter procedure Willard Epperson Work Phone: [facility] Comment on above: Multiple sclerosis, primary progressive (HCC) (Primary Dx) Start: 04-13-2020 End: 04-13-2020 Coordination of care plan Amrit Hilario [facility] Start: 10-29-2019 End: 10-29-2019 Admission to [facility] Start: 10-24-2019 End: 10-24-2019 Documentation procedure Jeanne Hilario [facility] Start: 10-18-2019 End: 10-18-2019 Phys/qhp telephone evaluation 11-20 min Willard Epperson Work Phone: [facility] Comment on above: Multiple sclerosis ( HCC) Start: 10-18-2019 End: 10-18-2019 Patient encounter procedure Willard Epperson Work Phone: [facility] Comment on above: Multiple sclerosis, primary progressive (HCC) (Primary Dx) Start: 10-18-2019 End: 10-18-2019 Subsequent hospital visit by physician Willard Epperson Work Phone: [facility] Comment on above: Multiple sclerosis ( HCC) Start: 10-09-2019 End: 10-09-2019 Coordination of care plan Amrit Hilario [facility] Start: 04-18-2019 End: 04-18-2019 Documentation procedure Jeanne Hilario [facility] Start: 04-12-2019 End: 04-12-2019 Office outpatient visit 25 minutes Willard Epperson Work Phone: [facility] Comment on above: Multiple sclerosis ( HCC) (Primary Dx) Start: 04-12-2019 End: 04-12-2019 Patient encounter procedure Willard Epperson Work Phone: [facility] Comment on above: Multiple sclerosis, primary progressive (HCC) (Primary Dx); Multiple sclerosis (HCC) Start: 04-11-2019 End: 04-11-2019 Coordination of care plan Melva Zuleta [facility] Start: 10-12-2018 End: 10-12-2018 Patient encounter procedure Willard Epperson Work Phone: [facility] Comment on above: Multiple sclerosis, primary progressive (HCC) (Primary Dx) Start: 09-28-2018 End: 09-28-2018 Office outpatient visit 25 minutes Willard Epperson Work Phone: [facility] Comment on above: Multiple sclerosis ( HCC) (Primary Dx); Therapeutic drug monitoring Start: 09-28-2018 End: 09-28-2018 Patient encounter procedure Willard Epperson Work Phone: [facility] Comment on above: Multiple sclerosis ( HCC) Start: 01-23-2018 Patient encounter Jenane Hilario [facility] Start: 01-19-2018 End: 01-19-2018 Office outpatient visit 40 minutes C Willard Epperson Work Phone: [facility] Start: 10-11-2017 End: 10-11-2017 Ambulatory Murtaza Fish Work Phone: [facility] Start: 08-25-2017 Office/outpatient vi sit, est, level 4 Willard Epperson Work Phone: [facility] Start: 08-11-2017 Ambulatory Jeanne Hilario [facility] Start: 05-25-2017 Ambulatory Jeanne Hilario [facility] Start: 05-25-2017 Office/outpatient vi sit, est, level 4 Willard Epperson Work Phone: [facility] Start: 05-04-2017 Ambulatory Murtaza muñoz Work Phone: [facility] Start: 04-13-2017 Ambulatory Murtaza muñoz Work Phone: [facility] Start: 02-13-2017 End: 02-13-2017 Documentation procedure Jeanne Hilario [facility] Start: 02-13-2017 Office/outpatient vi sit, est, level 4 Willard Epperson Work Phone: [facility] Start: 01-25-2017 Ambulatory Jeanne Sulaiman [facility] Procedures Date Procedure Procedure [...] Work Phone: Start: 04-09-2021 Hepatic function panel Willrad Epperson MD Work Phone: Start: 03-10-2020 Mammography [...] 10-01-2028 Screening for malignant neoplasm of colon [facility] Start: 11-15-2024 Bacteria identified in Urine by Culture Urine Culture [facility] Start: 11-15-2024 [facility] Start: 10-02-2023 Colonoscopy COLONOSCOPY [facility] Start: 10-02-2023 COLORECTAL CANCER SCREENING COLORECTAL CANCER SCREENING [facility] Start: 02-08-2022 Tetanus vaccination [facility] Start: 02-08-2022 Urine microalbumin profile DTAP,TDAP,TD (2 - Td or Tdap) [facility] Start: 02-03-2022 Influenza vaccination [facility] Start: 09-28-2021 Patient discharge [facility] Work Phone: Start: 09-28-2021 End: 09-28-2021 ambulatory [facility] Start: 09-28-2021 End: 09-28-2021 Patient encounter procedure [facility] Start: 09-27-2021 End: 09-27-2021 Patient encounter procedure [facility] Start: 09-21-2021 Following clinical pathway protocol [facility] Work Phone: Start: 09-21-2021 [facility] Work Phone: Start: 09-20-2021 Care planning and problem solving actions [facility] Work Phone: Start: 09-18-2021 Catheterization of vein [facility] Work Phone: Start: 09-18-2021 Consultation [facility] Work Phone: Start: 09-18-2021 Incentive spirometry [facility] Work Phone: Start: 09-18-2021 Insertion of catheter into peripheral vein [facility] Work Phone: Start: 09-18-2021 Measuring intake and output [facility] Work Phone: Start: 09-18-2021 Oxygen therapy [facility] Work Phone: Start: 09-18-2021 Physiotherapy of chest [facility] Work Phone: Start: 09-18-2021 Providing care according to standard [facility] Work Phone: Start: 09-18-2021 Vital signs measurements [facility] Work Phone: Start: 09-18-2021 [facility] Work Phone: Start: 09-18-2021 Care planning and problem solving actions [facility] Work Phone: Start: 09-18-2021 Continuous positive airway pressure ventilation treatment [facility] Work Phone: Start: 09-17-2021 Speech therapy assessment [facility] Work Phone: Start: 09-17-2021 [facility] Work Phone: Start: 09-16-2021 Ambulation without limitation [facility] Work Phone: Start: 09-16-2021 Assessment of risk of venous thromboembolism [facility] Work Phone: Start: 09-16-2021 Insertion of catheter into peripheral vein [facility] Work Phone: Start: 09-16-2021 Providing care according to standard [facility] Work Phone: Start: 09-16-2021 Referral to occupational therapist [facility] Work Phone: Start: 09-16-2021 Referral to service [facility] Work Phone: Start: 09-16-2021 [facility] Work Phone: Start: 09-16-2021 Following clinical pathway protocol [facility] Work Phone: Start: 09-16-2021 Admission procedure [facility] Work Phone: Start: 09-16-2021 Bacteria identified in Blood by Culture Blood Culture [facility] Work Phone: Start: 09-16-2021 Bacteria identified in Urine by Culture Urine Culture [facility] Work Phone: Start: 04-23-2021 COVID-19 Vaccine (3 - Booster for Pfizer series) COVID-19 Vaccine (3 - Booster for Pfizer series) [facility] Start: 04-16-2021 End: 04-16-2021 ambulatory 04/16/2021 Infusion/Injection Infusion Therapy [facility] Start: 04-09-2021 End: 04-09-2021 ambulatory 04/09/2021 Infusion/Injection Infusion Therapy [facility] Start: 04-09-2021 End: 04-09-2021 Patient encounter procedure 04/09/2021 Office Visit Neurology Willard Epperson MD [address] [facility] [address] [place] [id number] [phone] [facility] Start: 03-23-2021 COVID-19 Vaccine (3 - Booster for Pfizer series) COVID-19 Vaccine (3 - Booster for Pfizer series) [facility] Start: 03-10-2021 Screening for malignant neoplasm of breast Mammogram [facility] Start: 03-10-2021 Screening mammography Mammogram [facility] Start: 03-05-2021 End: 10-19-2021 MR Brain With And Without Contrast MR Brain With And Without Contrast Imaging Routine Multiple sclerosis, primary progressive (HCC) Expected: 03/05/2021, Expires: 10/19/2021 [facility] Comment on above: Expected: 03/05/2021, Expires: 2 Start: 03-05-2021 End: 10-19-2021 MRI of cervical spine MR Cervical Spine With And Without Contrast Imaging Routine Multiple sclerosis, primary progressive (HCC) Expected: 03/05/2021, Expires: 10/19/2021 [facility] Comment on above: Expected: 03/05/2021, Expires: 2 Start: 03-05-2021 End: 10-19-2021 MRI of thoracic spine MR Thoracic Spine With And Without Contrast Imaging Routine Multiple sclerosis, primary progressive (HCC) Expected: 03/05/2021, Expires: 10/19/2021 [facility] Comment on above: Expected: 03/05/2021, Expires: 2 Start: 02-03-2021 Influenza vaccination [facility] Start: 12-16-2020 COVID-19 Vaccine (3 - Booster for Pfizer series) COVID-19 Vaccine (3 - Booster for Pfizer series) [facility] Start: 10-19-2020 COVID-19 Vaccine (2 - Pfizer 2-dose series) COVID-19 Vaccine (2 - Pfizer 2-dose series) [facility] Start: 10-16-2020 End: 10-16-2020 Infusion/Injection [facility] Start: 04-17-2020 End: 04-17-2020 Office Visit 04/17/2020 Office Visit Neurology Willard Epperson MD [address] [address] [phone] [facility] Start: 04-17-2020 End: 04-17-2020 Infusion/Injection [facility] Start: 02-04-2020 Influenza vaccination given [facility] Start: 01-22-2020 Mammography MAMMOGRAM [facility] Start: 01-15-2020 Adult depression screening assessment DEPRESSION SCREENING [facility] Start: 10-18-2019 End: 10-18-2019 Office Visit 10/18/2019 Office Visit Neurology Willard Epperson MD [address] [address] [phone] [facility] Start: 10-18-2019 End: 10-18-2019 Infusion/Injection [facility] Start: 10-18-2019 End: 10-18-2019 Appointment 10/18/2019 Appointment Radiology Willard Epperson MD [address] [address] [phone] [facility] Start: 04-12-2019 End: 04-12-2019 Infusion/Injection 04/12/2019 Infusion/Injection Infusion Therapy [facility] Start: 03-11-2019 End: 03-11-2019 Office Visit 03/11/2019 Office Visit Neurology Willard Epperson MD [address] [facility] [address] [address] [phone] [facility] Start: 02-04-2019 DIABETES SCREEN DIABETES SCREEN [facility] Start: 02-03-2019 Influenza vaccination given [facility] Start: 10-12-2018 End: 10-12-2018 Infusion/Injection 10/12/2018 Infusion/Injection Infusion Therapy Willard Epperson MD [address] [facility] [address] [address] [phone] [facility] Start: 04-13-2018 End: 04-13-2018 Ambulatory 04/13/2018 Office Visit Neurology Willard Epperson MD [address] [address] [phone] [facility] Start: 04-13-2018 End: 04-13-2018 Ambulatory 04/13/2018 Infusion/Injection Infusion Therapy [facility] Start: 02-03-2018 Influenza vaccination [facility] Start: 02-03-2018 Influenza vaccination given SEQUENTIAL INFLUENZA VACCINE (#1) [facility] Start: 01-19-2018 End: 01-19-2018 Ambulatory 01/19/2018 Office Visit Neurology Willard Epperson MD [address] [facility] [address] [address] [phone] [facility] Start: 10-11-2017 Ambulatory 10/11/2017 Infusion/Injection Infusion Therapy [facility] Start: 08-25-2017 Ambulatory 08/25/2017 Office Visit Neurology Willard Epperson MD [address] [facility] [address] [address] [phone] [facility] Start: 08-17-2017 Ambulatory 08/17/2017 Appointment Radiology Willard Epperson MD [address] [facility] [address] [address] [phone] [facility] Start: 05-25-2017 Ambulatory 05/25/2017 Office Visit Neurology Willard Epperson MD [address] [facility] [address] [place] [address] [phone] [facility] Start: 05-04-2017 Ambulatory 05/04/2017 Infusion/Injection Infusion Therapy [facility] Start: 02-13-2017 Ambulatory 02/13/2017 Office Visit Neurology Willard Epperson MD [address] [facility] [address] [facility] [address] [place] [address] [phone] [facility] Start: 02-03-2017 Influenza vaccination SEQUENTIAL INFLUENZA VACCINE (#1) [facility] Work Phone: Start: 02-03-2017 SEQUENTIAL INFLUENZA VACCINE (#1) SEQUENTIAL INFLUENZA VACCINE (#1) [facility] Work Phone: Start: 03-31-2016 HPV TESTING HPV TESTING [facility] Start: 03-31-2016 PAP TESTING PAP TESTING [facility] Start: 02-09-2016 LIPID SCREEN LIPID SCREEN [facility] Start: 02-21-2008 Administration of herpes zoster vaccine Zoster Vaccines (1 of 2) [facility] Start: 02-21-2008 Screening for malignant neoplasm of colon [facility] Start: 02-21-2008 SHINGRIX VACCINE (1 of 2) SHINGRIX VACCINE (1 of 2) [facility] Start: 2003 COLOGUARD (FIT-DNA) COLOGUARD (FIT-DNA) [facility] Start: [address] COLONOGRAPHY [facility] Start: 2003 FECAL OCCULT BLOOD FECAL OCCULT BLOOD [facility] Start: 2003 SIGMOIDOSCOPY SIGMOIDOSCOPY [facility] Start: 02-21-1976 HEPATITIS C SCREENING HEPATITIS C SCREENING [facility] Start: 02-21-1976 HIV SCREENING HIV SCREENING [facility] Start: 1974 COVID-19 Vaccine (1 of 2) COVID-19 Vaccine (1 of 2) [facility] Start: 1974 COVID-19 Vaccine (1) COVID-19 Vaccine (1) [facility] Start: 1970 Adolescent depression screening assessment Depression Screening (PHQ9) [facility] Start: 1970 Depression screening using PHQ-9 (Patient Health Questionnaire 9) score [facility] Start: 1961 History and physical examination, annual for health maintenance Wellness Visit [facility] Start: 1958 Protein mass conc Mammogram [facility] Start: 1958 Screening for malignant neoplasm of colon [facility] Start: 1958 Screening mammography Mammogram [facility] Start: 1958 Colonoscopy COLONOSCOPY [facility] Work Phone: Start: 1958 Cytopathology procedure, preparation of smear, genital source PAP SMEAR [facility] Work Phone: Start: 1958 End: 1958 Screening colonoscopy COLONOSCOPY [facility] Work Phone: Start: 1958 End: 1958 Screening for malignant neoplasm of cervix PAP SMEAR [facility] Start: 1958 TETANUS EVERY 10 YR TETANUS EVERY 10 YR [facility] Work Phone: Start: 1958 End: 1958 Tetanus vaccination TETANUS EVERY 10 YR [facility] Work Phone: End: 04-17-2021 Cobalamin (Vitamin B12) [Mass/Vol] Vitamin B12 Lab Routine Fatigue, unspecified type 1 Occurrences starting 04/17/2020 until 04/17/2021 [facility] Comment on above: 1 Occurrences starting 04/17/2020 until 04/17/2021 End: 04-17-2021 Complete blood count with white cell differential, manual CBC and Differential Lab Routine Multiple sclerosis, primary progressive (HCC) 1 Occurrences starting 04/17/2020 until 04/17/2021 [facility] Comment on above: 1 Occurrences starting 04/17/2020 until 04/17/2021 End: 10-02-2019 Complete blood count with white cell differential, manual CBC and Differential Routine Therapeutic drug monitoring 1 Occurrences starting 10/01/2018 until 10/02/2019 [facility] Comment on above: 1 Occurrences starting 10/01/2018 until 10/02/2019 End: 10-16-2021 Complete blood count with white cell differential, manual CBC and Differential Lab Routine Multiple sclerosis, primary progressive (HCC) 1 Occurrences starting 10/16/2020 until 10/16/2021 [facility] Comment on above: 1 Occurrences starting 10/16/2020 until 10/16/2021 End: 04-17-2021 Comprehensive metabolic 2000 panel Comprehensive Metabolic Panel Lab Routine Multiple sclerosis, primary progressive (HCC) 1 Occurrences starting 04/17/2020 until 04/17/2021 [facility] Comment on above: 1 Occurrences starting 04/17/2020 until 04/17/2021 End: 10-02-2019 Comprehensive metabolic 2000 panel Comprehensive Metabolic Panel Routine Therapeutic drug monitoring 1 Occurrences starting 10/01/2018 until 10/02/2019 [facility] Comment on above: 1 Occurrences starting 10/01/2018 until 10/02/2019 End: 05-25-2018 Comprehensive metabolic panel [AGGREGATE] Comprehensive Metabolic Panel Routine Multiple sclerosis (HCC) 1 Occurrences starting 05/25/2017 until 05/25/2018 [facility] Work Phone: Comprehensive metabo lic panel [AGGREGATE] Comprehensive Metabolic Panel Routine Multiple sclerosis (HCC) 05/25/2017 10:22 AM EST [facility] Work Phone: End: 10-16-2021 Hepatic function 2000 panel - Serum or Plasma Hepatic Function Panel Lab Routine Multiple sclerosis, primary progressive (HCC) 1 Occurrences starting 10/16/2020 until 10/16/2021 [facility] Comment on above: 1 Occurrences starting 10/16/2020 until 10/16/2021 End: 04-17-2021 Immunoglobulin measurement IgG, IgA, IgM Immunoglobulins Lab Routine Multiple sclerosis, primary progressive (HCC) 1 Occurrences starting 04/17/2020 until 04/17/2021 [facility] Comment on above: 1 Occurrences starting 04/17/2020 until 04/17/2021 End: 10-16-2021 Immunoglobulin measurement IgG, IgA, IgM Immunoglobulins Lab Routine Multiple sclerosis, primary progressive (HCC) 1 Occurrences starting 10/16/2020 until 10/16/2021 [facility] Comment on above: 1 Occurrences starting 10/16/2020 until 10/16/2021 End: 09-28-2018 MR Brain With And Without Contrast MR Brain With And Without Contrast Routine Multiple sclerosis (HCC) Once for 1 Occurrences starting 09/28/2018 until 09/28/2018 [facility] Comment on above: Once for 1 Occurrences starting 09/29/19 19 until 09/28/2018 MR Brain With And Without Contrast MR Brain With And Without Contrast Routine Multiple sclerosis (HCC) 09/28/2018 1:06 PM EDT [facility] End: 08-25-2018 OCT, Optic Nerve - OU - Both Eyes OCT, Optic Nerve - OU - Both Eyes Routine Multiple sclerosis (HCC) 1 Occurrences starting 08/25/2017 until 08/25/2018 [facility] Patient referral [facility] Work Phone: End: 12-31-2022 Screening mammography bi 2-view breast inc cad HUBERT SCREENING Radiology Routine Encounter for screening mammogram for breast cancer 1 Occurrences starting 12/01/2021 until 12/31/2022 [facility] Work Phone: Comment on above: 1 Occurrences starting 12/01/2021 until 12/31/2022 End: 04-17-2021 TSH Qn TSH with Reflex Free T4 Lab Routine Fatigue, unspecified type 1 Occurrences starting 04/17/2020 until 04/17/2021 [facility] Comment on above: 1 Occurrences starting 04/17/2020 until 04/17/2021 Urine culture [facility] End: 04-17-2021 Vitamin D, 25-hydroxy measurement Vitamin D, Total, 25-OH Lab Routine Multiple sclerosis, primary progressive (HCC) 1 Occurrences starting 04/17/2020 until 04/17/2021 [facility] Comment on above: 1 Occurrences starting 04/17/2020 until 04/17/2021 End: 10-01-2019 Vitamin D, 25-hydroxy measurement Vitamin D, Total, 25-OH Routine Therapeutic drug monitoring 1 Occurrences starting 10/01/2018 until 10/01/2019 [facility] Comment on above: 1 Occurrences starting 10/01/2018 until 10/01/2019 End: 05-25-2018 Vitamin D, Total, 25-OH Vitamin D, Total, 25-OH Routine Multiple sclerosis (HCC) 1 Occurrences starting 05/25/2017 until 05/25/2018 [facility] Work Phone: Vitamin D, Total, 25-OH Vitamin D, Total, 25-OH Routine Multiple sclerosis (HCC) 05/25/2017 10:22 AM EST [facility] Work Phone: Immunizations Immunization Date Immunization Notes Care Provider Iva harris 10-21-2020 COVID-19 vaccine, ag e 12+ yr (PFIZER-BIONTECH - PURPLE TOP) Joan Hughes MD Work Phone: [facility] Work Phone: 09-28-2020 COVID-19 vaccine, ag e 12+ yr (PFIZER-BIONTECH - PURPLE TOP) Joan Hughes MD Work Phone: [facility] Work Phone: 02-09-2017 AFLURIA QUAD 2016- 18, PF, syringe; Translations: [Afluria Quad (Pf) 60 McG/0.5 Ml Intramuscular Syringe] Jeanne Hilario [facility] Work Phone: 02-08-2016 influenza, seasonal, injectable Joan Hughes MD Work Phone: [facility] 02-22-2013 influenza virus vaccine, unspecified formulation Joan Hughes MD Work Phone: [facility] 03-03-2012 influenza virus vaccine, unspecified formulation Joan Hughes MD Work Phone: [facility] 02-09-2012 tetanus toxoid, redu deniz diphtheria toxoid, and acellular pertussis vaccine, adsorbed Joan Hughes MD Work Phone: [facility] 04-07-2010 pneumococcal polysaccharide vaccine, 23 valent Joan Hughes MD Work Phone: [facility] 03-25-2008 influenza virus vaccine, unspecified formulation Joan Hughes MD Work Phone: [facility] 04-03-2007 influenza virus vaccine, unspecified formulation Joan Hughes MD Work Phone: [facility] Work Phone: 04-17-2006 influenza virus vaccine, unspecified formulation Joan Hughes MD Work Phone: [facility] 05-17-2005 influenza virus vaccine, unspecified formulation Joan Hughes MD Work Phone: [facility] Work Phone: Payers Date Payer Category Payer Self-pay [id number] Unknown [id number] 2013 Unknown [id number] 2. [id number] 2013 Unknown [id number] 2. 16.840.1.005380.3.249.13 2013 Unknown [id number] 1.2.840.827481.1.13.385.2.7.3.322873.315 2013 Unknown 1.2.840.857558. 1.13.385.2.7.3.783634.315 1960 Unknown [id number] 2.16. 840.1.764566.3.579.2.900 1958 Unknown [id number] 2.16. 840.1.631656.3.579.2.900 1958 Unknown [id number] 2.16. 840.1.773000.3.579.2.900 1958 Unknown [id number] 2.16. 840.1.774251.3.579.2.900 1958 Unknown [id number] 2.16. 840.1.712433.3.579.2.900 1958 Unknown [id number] 2.16. 840.1.965110.3.579.2.900 1958 Unknown [id number] 2.16. 840.1.873156.3.579.2.900 1958 Unknown [id number] 2.16. 840.1.933158.3.579.2.900 1958 Unknown [id number] 2.16. 840.1.899210.3.579.2.900 1958 Unknown [id number] 2.16. 840.1.763698.3.579.2.903 1960 Unknown [id number] 2.16. 840.1.571106.3.579.2.903 Medicare MEDICARE PART A B [id number] Unknown [id number] 2.16.8 40.1.065617.3.579.2.462 Unknown [id number] 2.16.8 40.1.263181.3.579.2.462 Unknown [id number] 2.16.8 40.1.313609.3.579.2.462 Unknown [id number] 2.16.8 40.1.317354.3.579.2.462 Unknown [id number] 2.16.8 40.1.243845.3.579.2.462 Unknown [id number] 2.16.8 40.1.454850.3.579.2.462 Unknown [id number] 2.16.8 40.1.490653.3.579.2.462 Unknown [id number] 2.16.8 40.1.232172.3.579.2.462 Unknown [id number] 2.16.8 40.1.072167.3.579.2.462 Unknown [id number] 2.16.8 40.1.418786.3.579.2.462 Unknown [id number] 2.16.8 40.1.260192.3.579.2.462 Unknown [id number] 2.16.8 40.1.556365.3.579.2.462 Unknown [id number] 2.16.8 40.1.306779.3.579.2.462 Unknown [id number] 2.16.8 40.1.090385.3.579.2.462 Unknown [id number] 2.16.8 40.1.848658.3.579.2.462 Unknown [id number] 2.16.8 40.1.913121.3.579.2.462 Unknown [id number] 2.16.8 40.1.274147.3.579.2.462 Unknown [id number] 2.16.8 40.1.122676.3.579.2.462 Unknown [id number] 2.16.8 40.1.189248.3.579.2.462 Unknown [id number] 2.16.8 40.1.402921.3.579.2.462 Unknown [id number] 2.16.8 40.1.165649.3.579.2.462 Unknown [id number] 2.16.8 40.1.748874.3.579.2.462 Unknown [id number] 2.16.8 40.1.037377.3.579.2.462 Unknown [id number] 2.16.8 40.1.083351.3.579.2.462 Unknown [id number] 2.16.8 40.1.818338.3.579.2.462 Unknown [id number] 2.16.8 40.1.472916.3.579.2.462 Unknown [id number] 2.16.8 40.1.239115.3.579.2.462 Unknown [id number] 2.16.8 40.1.281926.3.579.2.462 Unknown [id number] 2.16.8 40.1.017556.3.579.2.462 Unknown [id number] 2.16.8 40.1.825779.3.579.2.462 Unknown [id number] 2.16.8 40.1.127302.3.579.2.462 Unknown [id number] 2.16.8 40.1.369663.3.579.2.462 Unknown [id number] 2.16.8 40.1.837839.3.579.2.462 Unknown [id number] 2.16.8 40.1.427318.3.579.2.462 Unknown [id number] 2.16.8 40.1.353818.3.579.2.462 Unknown [id number] 2.16.8 40.1.262703.3.579.2.462 Unknown [id number] 2.16.8 40.1.077058.3.579.2.462 Unknown [id number] 2.16.8 40.1.346329.3.579.2.462 Unknown [id number] 2.16.8 40.1.077151.3.579.2.462 Unknown [id number] 2.16.8 40.1.916964.3.579.2.462 Social History Date Type Detail Facility Start: 10-11-2017 End: 07-05-2022 Tobacco smoking status NHIS Never smoker [facility] Work Phone: Start: 1960 Sex Assigned At Not on file [facility] Work Phone: Start: 04-16-2019 End: 07-14-2021 Alcohol intake Current non-drinker of alcohol (finding) [facility] Exposure to SARS-CoV -2 (event) Not sure [facility] Start: 04-13-2017 End: 10-18-2019 Tobacco use and exposure Never used [facility] Start: 09-16-2021 End: 07-05-2022 Tobacco smoking status NHIS Unknown if ever smoked [facility] Start: 01-25-2020 Alone [facility] Start: 1960 Sex Assigned At Female [facility] Start: 09-05-2024 End: 09-06-2024 Sex Female (finding) [facility] Goals Date Patient Goal Desired Activity /State Functional Status Date Assessment Result Facility 09-28-2021 Functional status Patient Activity Chair [facility] Work Phone: 09-28-2021 Functional status Activity Abili ty With Assist of 2 [facility] Work Phone: 09-28-2021 Functional status Rolling Walker [facility] Work Phone: Mental Status Date Assessment Result Facility 09-28-2021 Cognitive function Voice/Name [facility] Work Phone: 09-16-2021 Cognitive function Level Of Cons ciousness Awake;Alert;Appropriate;Follow s Commands [facility] Work Phone: Clinical Notes 10-16-2020 to 11-09-2022 Willard Epperson MD - 06/23/2022 11:31 AM ESTPatient InstructionsPatient InstructionsWillard Epperson MD - 04/09/2021 8:00 AM EDTSmithWillard MD - 10/29/2020 10:03 AM EDT Note Date & Type Note Facility 11-09-2022 Note Patient Outreach (IN TMMN) BRITNEY PERAZA ([id number]) 1960 F TXT Date Time Provider Department [...] for screening mammogram for breast cancer [Z12.31] Order(s):[facility] SCREENING [[id number]] Order #: [id number] FUTURE Prescriptions as of 11/14/2022 - atenolol [...] sclerosis) (HCC) [G35] 01/14/2019 Encounter Status:Closed by [employer] on 11/14/22 [facility] 06-23-2022 History of Present illness Narrative [...] interested in rescheduling. documented in this encounter [facility] 12-01-2021 Note Patient Outreach (IN TMMN) BRITNEY PERAZA ([id number]) 1960 F TXT Date Time Provider Department 12/01/21 ELDERBROCK, JAON D INTMMN During your visit today, we [...] for screening mammogram for breast cancer [Z12.31] Order(s):[facility] SCREENING [[id number]] Order #: [id number] FUTURE Prescriptions as of 12/06/2021 - atenolol [...] Encounter Status:Closed by KODAK, PRODUSER on 12/06/21 [facility] 04-09-2021 Instructions Zahra Pratt RN - [...] the medicines you take, including prescription and nnyu-mzg-iaisjcs medicines. vitamins, and herbal supplements. How will [...] may report side effects to FDA at 0-279-ERJ-7429. General information about the safe and effective [...] sodium acetate trihydrate, trehalose dihydrate. Manufactured by: [employer] A Member of the [employer], [address] [place] [address], [place] [address] [place]. License No. [id number] For more information, go to www.[employer] or call . This Medication Guide has been approved by the U.S. Food and Drug Administration documented in this encounter [facility] 04-09-2021 Instructions Willard Epperson MD - 04/09/2021 8:16 AM EDT Central Schedulin212- [phone] documented in this encounter [facility] 04-09-2021 History of Present illness Narrative Images from the original note were not included. Patient Name: Britney Peraza : 1960 MR #: [id number] Other Physicians: Joan Hughes MD (Primary Care Physician) [facility] Follow-up Visit 04/09/2021 [...] forward: She previously was employed in a us[employer] She went to the 12th grade in [...] discussed above. I recommend continuing Vitamin D3 24961 IU once every other daily. Goal levels [...] me in 6 months. Willard Epperson MD [facility] Neurological Physicians Neuroimmunology/ Neuroinfectious Disease ([facility], and [place] [facility]) General Neurology ([facility]) ([place]) [place] Address: [address] [place] [address], [address] [place] [address] [place] Address [address], [address] [place] [address] [facility] [address] [place] [address], [place] [address] Chief Complaint: Neuro-immunology clinic follow up INTERIM HISTORY Britney Peraza is here for follow up. Last was seen 10/23. Accompanied by her sister today. She has her infusion scheduled later this morning. No new symptoms to report, though her sister feels she minimizes worsening gait impairment. We had placed orders for [facility] in [facility]. They had been providing her with a [...] Swelling Naproxen Sodium Hives, Itching and Swelling Wwkuxovntpru-Ggb-Vsrwnwqw tachycardia tachycardia Penicillins Hives Sulfa (Sulfonamide Antibiotics) Hives Tetracycline Hives Current Outpatient Medications Medication Sig Dispense Refill acetaminophen (TYLENOL) 500 MG tablet Take 500 mg by mouth every 6 (six) hours as needed for pain. AFLURIA QUAD [id number], PF, syringe ADMINISTERED AT DDM 0 atenolol [...] documentation: 40 minutes. documented in this encounter [facility] 01-08-2021 Miscellaneous Notes Changed pharmacies documented in this encounter [facility] 10-29-2020 History of Present illness Narrative Are we able to fax this order for home health to [facility] in [place]? Contact is: Toll Free [phone] Also, can we reschedule her Apr visit [...] her regarding this? documented in this encounter [facility] 10-16-2020 History of Present illness Narrative Images from the original note were not included. 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 Goal levels of Vitamin [...] with me April 2021. Willard Epperson MD [facility] Neurological Physicians Neuroimmunology/ Neuroinfectious Disease ([facility], and [place] [facility]) General Neurology ([facility]) ([facility]) [facility] Address: [address] [place] [address], [address] [place] [address] [place] Address [address], [address] [place] [address] [facility] [address] [place] [address], [place] [address] Chief Complaint: Neuro-immunology clinic follow up INTERIM [...] Swelling Naproxen Sodium Hives, Itching and Swelling Tbavqadwhqwe-Aye-Rjwrchvj tachycardia tachycardia Penicillins Hives Sulfa (Sulfonamide Antibiotics) Hives Tetracycline Hives Current Outpatient Medications Medication Sig Dispense Refill acetaminophen (TYLENOL) 500 MG tablet Take 500 mg by mouth every 6 (six) hours as needed for pain. AFLURIA QUAD [id number], PF, syringe ADMINISTERED AT DDM 0 atenolol [...] of T2/FLAIR signal abnormalities compatible with demyelination. [employer] Workstation ID: [id number] Results for orders placed [...] air cells are clear. Nasopharynx is normal. 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 Orbital contents are normal. [...] or enhancing lesions. 3. Stable brain atrophy. [facility]/[employer] Workstation ID: [id number] Total time spent, including over 50% or more spent face to face with the patient discussing the risk and benefits of any medications, reviewing available data and counseling patient on treatment plan was 30 minutes. The aforementioned impression & plan were discussed with the patient. documented in this encounter [facility] 10-16-2020 Instructions LiangLata RN - 10/16/2020 [...] Pt voiced understanding. documented in this encounter [facility] 10-16-2020 Instructions Lata Liang RN - [...] Pt voiced understanding. documented in this encounter [facility] 10-16-2020 History of Present illness Narrative Labs obtained with insertion of PIV, which will be used for the infusion today. Specimens labeled per policy and taken to the lab in the [facility] for processing. documented in this encounter [facility] 10-16-2020 History of Present illness Narrative Labs obtained with insertion of PIV, which will be used for the infusion today. Specimens labeled per policy and taken to the lab in the [facility] for processing. documented in this encounter [facility] Evaluation note Diagnosis Multiple sclerosis, primary progressive (HCC)- [facility], primary progressive ([facility])- Primary [facility] Multiple [facility], primary progressive (HCC)- Primary Vitamin D deficiency Paresis of lower extremity (HCC) Unspecified paralysis History of gait disorder [facility] Multiple sclerosis, primary progressive (HCC)- Primary documented in this encounter [facility] note* Diagnosis Vitamin D deficiency documented in this encounter [facility] note* Diagnosis Multiple sclerosis, primary progressive (HCC)- Primary Multiple sclerosis (HCC) Multiple sclerosis documented in this encounter [facility] note* Diagnosis Multiple sclerosis, primary progressive (HCC)- Primary Vitamin D deficiency Spasticity Abnormal involuntary movements Ataxia Lack of coordination Cognitive impairment Unspecified persistent mental disorders due to conditions classified elsewhere documented in this encounter [facility] note* Diagnosis Onset Date Resolution Status Acute cystitis acute Complicated urinary tract infection acute Infectious encephalopathy ac isha Severe sepsis acute [facility] Work Phone: Evaluation note* Diagnosis Onset Date Resolution Status Acute respiratory failure with hypoxia acute Complicated urinary tract infection acute COVID-19 acute Debility acute Lactic acidosis acute Sepsis acute [facility] Work Phone: Evaluation note* Diagnosis Onset Date Resolution Status Debility acute Acute respiratory failure with hypoxia resolved Complicated urinary tract infection resolved COVID-19 resolved Lactic acidosis resolved Sepsis resolved [facility] Work Phone: Evaluation note* Diagnosis Encounter for screening mammogram for breast cancer documented in this encounter [facility] noteNo assessment information availableWUniversity [facility] Work Phone: Evaluation note* Diagnosis Multiple sclerosis, primary progressive (HCC)- Primary [facility] Work Phone: [facility] Dis[facility] instructions[facility] Work Phone: Hospital Discharge instructionsWUniversity [facility] Work Phone: [facility] Discharge instructionsPrem[facility] Work Phone: Reason for referral (narrative)* Diagnostic Procedure Only (Routine) - Pending Review Specialty Diagnoses / Procedures Referred By Gaston t Referred To Contact [facility] Diagnoses Encounter for screening mammogram for breast cancer Procedures HUBERT SCREENING SCREENING MAMMOGRAPHY BI 2-VIEW BREAST INC Joan Palomino MD [address] [place] [address] [facility] [place] [address] Referral ID Status Reason Start Date Expiration Date Visits Requested Visits Authorized [id number] Pending Review Auto-Generat ed Referral 12/01/2021 12/31/[address] [facility] for referral (narrative)No reason for referral information availableWUniversity Hospitals [facility] Work Phone: Instructions * Patient Instructions - [...] would require purchasing a compounded version from [employer]. One source to purchase this is [email or web address]/ Physical Therapy: 1. Recommend return to PT [...] the medicines you take, including prescription and twwx-cnr-ihjhhml medicines, vitamins_._and herbal supplements. _ _ _ [...] may report side effects to FDA at 1-866-CER-1454. General Information about the safe and effective [...] sodium acetate trihydrate, trehalose dihydrate. Manufactured by: [employer] A Member of the [employer], [address] [place] [address], [place] [address] [place]. License No.[id number] For more lnformation, go to www.[employer].Open[employer] or_call 8-436-644-38BZ. This Medication Guide has been approved by [...] state, unspecified Diagnosis Multiple sclerosis ([facility]) - P rimary Multiple sclerosis [...] With And Without Contrast Willard Epperson MD [address] [place] [address] Status Reason Specialty Diagnoses / Procedures Referred By Contact Referred To Contact Authorized Specialty Services Required/Patien t's Best Interest Physical Therapy Diagnoses Multiple sclerosis ([facility]) Willard Epperson MD [address] [place] [address] Status Reason Specialty Diagnoses / Procedures Referre d By Contact Referred To Contact Closed Radiology Diagnoses Multiple sclerosis ([facility]) Procedures MR Brain Without Contrast Willard Epperson MD [address] [place] [address] Status Reason Specialty Diagnoses / Procedures Referred By Contact Referred To Contact Closed Specialty Services Required/Patien t's Best Interest Pan Puller Diagnoses Multiple sclerosis (HCC) Willard Epperson MD [address] [place] [address] Dory Velez LISW-S Status Reason Specialty Diagnoses / Procedures Referred By Contact Referred To Contact New Request Radiology Diagnoses Multiple sclerosis, primary progressive (HCC) Procedures MR Thoracic Spine With And Without Contrast Willard Epperson MD [address] [place] [address] [address] [place] [address] Status Reason Specialty Diagnoses / Procedures Referred By Contact Referred To Contact New Request Radiology Diagnoses Multiple sclerosis, primary progressive (HCC) Procedures MR Cervical Spine With And Without Contrast Willard Epperson MD [address] [place] [address] [address] [place] [address] Status Reason Specialty Diagnoses / Procedures Referred By Contact Referred To Contact New Request Radiology Diagnoses Multiple sclerosis, primary progressive (HCC) Procedures MR Brain With And Without Contrast Willard Epperson MD [address] [place] [address] [place] [address] Status Reason Specialty Diagnoses / Procedures Referred By Contact Referred To Contact Authorized Specialty Services Required/Patie nt's Best Interest Home Health Services Diagnoses Multiple sclerosis, primary progressive (HCC) Willard Epperson MD [address] [place] [address] [address] [place] [address] Specialty Diagnoses / Procedures Referred By Contac t Referred To Contact Pan Puller Diagnoses Multiple sclerosis, primary progressive (HCC) Willard Epperson MD [address] [place] [address] [place] [address] Dory Velez LISW-S Referral ID Status Reason Start Date Expiration Date V isits Requested Visits Authorized [id number] Closed Specialty Services Required/[place] ent's Best Interest 04/09/2021 04/09/2022 1 1 Advance Directives No Advanced Directives Records FoundDocuments on File Type Date Recorded 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 Rolling Chair 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 Expl anation Advance Directives and Livin g Will 04/12/2019 8:19 AM Documents on File Type Date Recorded Patient Rolling Chair Pusher Expl anation Advance Directives and Livin g Will 04/12/2019 8:19 AM Documents on File Type Date Recorded Patient Rolling Chair Pusher Expl anation Advance Directives and Livin g Will 10/18/2019 6:47 AM Documents on File Type Date Recorded Patient Rolling Chair Pusher Expl anation Advance Directives and Livin g Will 10/18/2019 6:47 AM Documents on File Type Date Recorded Patient Rolling Chair Pusher Expl anation Advance Directives and Livin g Will 04/17/2020 6:47 AM Documents on File Type Date Recorded Patient Rolling Chair Pusher Expl anation Advance Directives and Livin g Will 04/17/2020 6:47 AM Documents on File Type Date Recorded Patient Rolling Chair Pusher Expl anation Advance Directives and Livin g Will 10/16/2020 6:47 AM Documents on File Type Date Recorded Patient Rolling Chair Pusher Expl anation Advance Directives and Livin g Will 10/16/2020 6:47 AM Documents on File Type Date Recorded Patient Rolling Chair Pusher Expl anation Advance Directives and Livin g Will 04/09/2021 6:47 AM Documents on File Type Date Recorded Patient Rolling Chair Pusher Expl anation Advance Directives and Livin g Will 04/09/2021 6:47 AM Advance Directive Response Recorded Date/ Time Living Will Yes September 16, 2021 2:30pm Power of Glove Wrapper Yes September 16 2:30pm Advance Directive Response Recorded Date/ Time Name of Medical Power of Glove Wrapper jacque schwartz September 16, 2021 2:30pm Living Will Yes September 16, 2021 2:30pm Power of Glove Wrapper Yes September 16 2:30pm Advance Directive Response Recorded Date/ Time Living Will Yes September 16, 2021 1:30pm Power of Glove Wrapper Yes September 16 1:30pm Advance Directive Response Recorded Date/ Time Living Will Yes July 05 11:24am Power of Glove Wrapper Yes July 05, 2022 11:24am Advance Directive Response Recorded Date/ Time Living Will Yes July 05 12:24pm Power of Glove Wrapper Yes July 05, 2022 12:24pm History of Present Illness * Jeanne Hilario CMA - 02/13/2017 1:04 PM EDT [phone] along with face [...] Epperson MD - 04/16/2019 8:02 PM EST [facility] 04/12/2019 IMPRESSIONS Britney [...] trials and in our experience here at [facility], most infusion related reactions are mild [...] visit. 3. Please sign up for the [employer] patient portal. [facility] provides assess to your medical record and test results, allows you to communicate with your care providers, and allows you to complete patient questionnaires prior to each clinic visit. 4. When your testing is completed, your MS care team will review all results and contact you if a finding requires follow up before your next visit. Otherwisee, we will discuss your test results [id number] at your next clinic visit. Many of your testing results, however, can be reviewed online through [facility]. MS Disease Summary Primary Neurological Diagnosis and [...] hours as needed for pain. AFLURIA QUAD [id number], PF, syringe ADMINISTERED AT DDM 0 atenolol [...] Swelling Naproxen Sodium Hives, Itching and Swelling Qdtnshbbgtnc-Cga-Xtyolylu tachycardia tachycardia Penicillins Hives Sulfa (Sulfonamide Antibiotics) [...] file Gets together: Not on file Attends gnosticist service: Not on file Active member of [...] of links to MS educational sources online: [facility] (www.[email or web address].[email or web address]/MS) Multiple Sclerosis Association of [place] (www.mymsaa.org) Multiple Sclerosis Foundation (www.msfocus.org) Can do Multiple Sclerosis ( www.mscando.org ) National Multiple Sclerosis Society (www.nationalmssociety.org) Twitter: @[facility] Facebook: [facility] Instagram: [facility] 5. For information on the [facility]'s clinical trial program contact Sari Bolden [facility]. 6. MS Groups take place at [facility] Education and Resource [place] at [facility]: [address] [place] [address]. Parking vouchers will be provided. Life with [...] the Monday of the month from 5:30-7pm. Caregiver/Wood Shop Teacher Support Group: offers opportunities to connect with [...] experienced yoga practitioners. Pre- registration is required: [phone] 7. Education regarding disease modifying therapy discussed [...] Willard Epperson MD Neuroimmunology and Neuroinfectious Disease [facility] at [facility] ([facility] fax) Favio Address: [address] [place] [address], [address] [place], [place] [address] [place] [address] [place] [address], [address] [place] [address] documented in this encounter* Jeanne Hilario CMA - 04/18/2019 8:25 AM EST Faxed [employer] ([phone]) a physical therapy referral along with face sheet and Insurance card to call patient to schedule. 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 We elected toproceed with the telephone visit telemedicine consultation. HPI Today she is currently at the [facility] receiving her infusion. She has been [...] hours as needed for pain. AFLURIA QUAD [id number], PF, SYRINGE ADMINISTERED AT [facility] ATENOLOL (TENORMIN) 25 MG TABLET Take [...] Continue with vitamin D 5000 units daily lkqj-hsk-ywqxgiq Continue Ampyra 10 mg twice daily and [...] EDT Faxed new Physical Therapy order to [facility] ([phone]) to call and schedule in home visits [...] her biggest problem. Patient lives alone in [place], [place] and sister lives in [place]. Falls in past 6 months: > 6, [...] the need for help. Pt has a [employer] dical alert system. She is receiving 2 hours of aide support, 2 times per week. Her bathroom was remodeled with a walk-in shower and a chair lift was installed to get pt safely from her garage into the home. It appears that pt would benefit from meals on wheels, as her aide is only allowed to pickling drum operator groceries, so pt does not have easy access to food/shopping. Jacque lives in [place]. In reviewing past and present in-home supports, [...] Name: Britney Peraza : 1960 [id number] [facility]: [id number] Other Physicians: Joan Hughes MD (Primary Care Physician) [facility] Follow-up Visit 04/17/2020 [...] me in 3 months. 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 Confirms about 12 calls with Toura over the last year. Would benefit significantly [...] Swelling Naproxen Sodium Hives, Itching and Swelling Hxdtvweexszc-Jlh-Euykgyxf tachycardia tachycardia Penicillins Hives Sulfa (Sulfonamide Antibiotics) Hives Tetracycline Hives Current Outpatient Medications Medication Sig Dispense Refill acetaminophen (TYLENOL) 500 MG tablet Take 500 mg by mouth every 6 (six) hours as needed for pain. AFLURIA QUAD [id number], PF, syringe ADMINISTERED AT DDM 0 atenolol [...] Faxed a physical therapy order to [facility] ([phone]) along with face sheet and Insurance card to call and schedule with patient. documented in this encounter* Willard Epperson MD - 09/28/2018 3:49 PM EDT [facility] at [facility] Follow Up Note 09/28/2018 IMPRESSIONS Britney [...] her MS providers. 3. Given that Britney Perzaa is on the Ocrevus, we will order the following safety laboratories/tests: new CBC/diff, CMP and vit D (can be drawn with her upcoming infusion). 4. Infusion Reactions can occur during Ocrevus infusions- In the clinical trials and in our experience here at [facility], most infusion related reactions are mild [...] visit. 3. Please sign up for the [facility] patient portal. [facility] provides assess to your medical record and test results, allows you to communicate with your care providers, and allows you to complete patient questionnaires prior to each clinic visit. 4. When your testing is completed, your MS care team will review all results and contact you if a finding requires follow up before your next visit. Otherwisee, we will discuss your test results shzm-ef-ebiy at your next clinic visit. Many of your testing results, however, can be reviewed online through [facility]. DISEASE SUMMARY Primary Neurological Diagnosis and Date [...] is also noticeable by her sister and iizsfxk-pj-fpe with regards toambulation. There have been no [...] hours as needed for pain. AFLURIA QUAD [id number], PF, syringe ADMINISTERED AT DDM 0 atenolol [...] Swelling Naproxen Sodium Hives, Itching and Swelling Otmqrzymgngx-Xfu-Iptkbhqr tachycardia tachycardia Penicillins Hives Sulfa (Sulfonamide Antibiotics) [...] Willard Epperson MD Neuroimmunology and Neuroinfectious Disease [facility] at [facility] ([facility]avio fax) [facility] Address: [address] [place] [address], [address] [place] [address] [place] Address [address] [facility], [address] [place] [address] documented in this encounter Summary Purpose Family [...] WITH SEPSIS UTI WITH SEPSIS ADMISSION EXAM LONG TERM LABWORK LABWORK Reason for Visit Debility Acute [...] WITH SEPSIS UTI WITH SEPSIS ADMISSION EXAM LONG TERM LABWORK LABWORK LABWORK LAB WORK NEW SYMPTOMS/CONCERN [...] WITH SEPSIS UTI WITH SEPSIS ADMISSION EXAM LONG TERM LABWORK LABWORK LABWORK LAB WORK NEW SYMPTOMS/CONCERN ALTERED MENTAL STATUS LONG TERM LABWORK NEW SYMPTOMS/CONCERNS Reason for Visit Debility Acute respiratory failure with hypoxia Complicated urinary tract infection COVID-19 Lactic acidosis Sepsis Chief Complaint ADMISSION EXAM LONG TERM LABWORK LABWORK LABWORK LAB WORK NEW SYMPTOMS/CONCERN ALTERED MENTAL STATUS LONG TERM LABWORK NEW SYMPTOMS/CONCERNS LONG TERM LABWORK LONG TERM LAB WORK LONG TERM LAB WORK Chief Complaint LABWORK LABWORK LAB WORK NEW SYMPTOMS/CONCERN ALTERED MENTAL STATUS LONG TERM LABWORK NEW SYMPTOMS/CONCERNS LONG TERM LABWORK LONG TERM LAB WORK LONG TERM LAB WORK LONG TERM LABWORK Chief Complaint NEW SYMPTOMS/CONCERN ALTERED MENTAL STATUS LONG TERM LABWORK NEW SYMPTOMS/CONCERNS LONG TERM LABWORK LONG TERM LAB WORK LONG TERM LAB WORK LONG TERM LABWORK LABWORK MONTHLY EXAM Chief Complaint NEW SYMPTOMS/CONCERN S LONG TERM LABWORK LONG TERM LAB WORK LONG TERM LAB WORK LONG TERM LABWORK LABWORK MONTHLY EXAM LONG TERM LABWORK Chief Complaint LONG TERM LABWORK LONG TERM LAB WORK LONG TERM LAB WORK LONG TERM LABWORK LABWORK MONTHLY EXAM LABWORK LONG TERM LABWORK Chief Complaint LONG TERM LAB WOR K LONG TERM LAB WORK LONG TERM LABWORK LABWORK MONTHLY EXAM LABWORK LONG TERM LABWORK LONG TERM LABWORK ACUTE CARE NOTE Chief Complaint LONG TERM LAB WOR K LONG TERM LAB WORK LONG TERM LABWORK LABWORK MONTHLY EXAM LABWORK LONG TERM LABWORK LONG TERM LABWORK LONG TERM LABWORK ACUTE CARE NOTE ACUTE CARE Chief Complaint MONTHLY EXAM LABWORK LONG TERM LABWORK LONG TERM LABWORK LONG TERM LABWORK ACUTE CARE NOTE ACUTE CARE LONG TERM LABWORK LONG TERM LAB WORK LONG TERM LAB WORK LONG TERM LAB WORK ACUTE CARE Chief Complaint LABWORK LONG TERM LABWORK LONG TERM LABWORK LONG TERM LABWORK ACUTE CARE NOTE ACUTE CARE LONG TERM LABWORK LONG TERM LAB WORK LONG TERM LAB WORK LONG TERM LAB WORK LONG TERM LAB WORK ACUTE CARE Chief Complaint LABWORK LONG TERM LABWORK LONG TERM LABWORK LONG TERM LABWORK ACUTE CARE NOTE ACUTE CARE LONG TERM LABWORK LONG TERM LAB WORK LONG TERM LAB WORK LONG TERM LABWORK LONG TERM LABWORK LONG TERM LAB WORK LONG TERM LAB WORK ACUTE CARE Chief Complaint LONG TERM LABWORK LONG TERM LABWORK ACUTE CARE NOTE ACUTE CARE LONG TERM LABWORK LONG TERM LAB WORK LONG TERM LAB WORK LONG TERM LABWORK LONG TERM LABWORK LONG TERM LAB WORK LONG TERM LAB WORK ACUTE CARE LONG TERM LABWORK MONTHLY NOTE LONG TERM LABWORK ACUTE CARE Chief Complaint LONG TERM LABWORK ACUTE CARE NOTE ACUTE CARE LONG TERM LABWORK LONG TERM LAB WORK LONG TERM LAB WORK LONG TERM LABWORK LONG TERM LABWORK LONG TERM LAB WORK LONG TERM LAB WORK ACUTE CARE LONG TERM LABWORK MONTHLY NOTE LONG TERM LABWORK ACUTE CARE LONG TERM LABWORK MONTHLY EXAM Chief Complaint LONG TERM LAB WOR K LONG TERM LABWORK LONG TERM LABWORK LONG TERM LAB WORK LONG TERM LAB WORK ACUTE CARE LONG TERM LABWORK MONTHLY NOTE LONG TERM LABWORK ACUTE CARE LONG TERM LABWORK MONTHLY EXAM LONG TERM LAB WORK LONG TERM LABWORK LONG TERM LABWORK NEW CONCERN Chief Complaint LONG TERM LAB WOR K LONG TERM LABWORK LONG TERM LABWORK LONG TERM LAB WORK LONG TERM LAB WORK ACUTE CARE LONG TERM LABWORK MONTHLY NOTE LONG TERM LABWORK ACUTE CARE LONG TERM LABWORK MONTHLY EXAM LONG TERM LAB WORK LONG TERM LABWORK LONG TERM LABWORK LONG TERM LABWORK NEW CONCERN Chief Complaint LONG TERM LABWORK LONG TERM LABWORK LONG TERM LAB WORK LONG TERM LAB WORK ACUTE CARE LONG TERM LABWORK MONTHLY NOTE LONG TERM LABWORK ACUTE CARE LONG TERM LABWORK MONTHLY EXAM LONG TERM LAB WORK LONG TERM LABWORK LONG TERM LABWORK LONG TERM LABWORK NEW CONCERN LONG TERM LABWORK Chief Complaint LONG TERM LABWORK MONTHLY NOTE LONG TERM LABWORK ACUTE CARE LONG TERM LABWORK MONTHLY EXAM LONG TERM LAB WORK LONG TERM LABWORK LONG TERM LABWORK LONG TERM LABWORK NEW CONCERN LONG TERM LABWORK MONTHLY EXAM LONG TERM LABWORK Chief Complaint MONTHLY NOTE LONG TERM LABWORK ACUTE CARE LONG TERM LABWORK MONTHLY EXAM LONG TERM LAB WORK LONG TERM LABWORK LONG TERM LABWORK LONG TERM LABWORK NEW CONCERN LONG TERM LABWORK MONTHLY EXAM LONG TERM LABWORK LONG TERM LABWORK Chief Complaint LONG TERM LABWORK LONG TERM LABWORK MONTHLY NOTE LONG TERM LABWORK MONTHLY EXAM LONG TERM LABWORK LONG TERM LAB WORK LONG TERM LABWORK MOTNHLY NOTE LONG TERM LABWORK Chief Complaint LONG TERM LABWORK LONG TERM LABWORK MONTHLY NOTE LONG TERM LABWORK MONTHLY EXAM LONG TERM LABWORK LONG TERM LAB WORK LONG TERM LABWORK MOTNHLY NOTE LONG TERM LABWORK LONG TERM LAB WORK Chief Complaint LONG TERM LABWORK MONTHLY EXAM LONG TERM LABWORK LONG TERM LAB WORK LONG TERM LABWORK MOTNHLY NOTE LONG TERM LABWORK MONTHLY EXAM LONG TERM LAB WORK LONG TERM LABWORK LABWORK Chief Complaint MONTHLY EXAM LONG TERM LABWORK LONG TERM LAB WORK LONG TERM LABWORK MOTNHLY NOTE LONG TERM LABWORK MONTHLY EXAM LONG TERM LAB WORK LONG TERM LABWORK LABWORK LONG TERM LAB WORK Chief Complaint LONG TERM LABWORK LABWORK LONG TERM LAB WORK LONG TERM LABWORK LONG TERM LABWORK MONTHLY EXAM MONTHLY NOTE MONTHLY EXAM LONG TERM LAB WORK Chief Complaint MONTHLY NOTE MONTHLY EXAM MONTHLY EXAM - YARN WASHER LONG TERM LAB WORK MONTHLY EXAM - MD LONG TERM LAB WORK Chief Complaint MONTHLY EXAM - YARN WASHER LONG TERM LAB WORK MONTHLY EXAM - MD LONG TERM LAB WORK LABWORK Chief Complaint MONTHLY EXAM - YARN WASHER LONG TERM LAB WORK MONTHLY EXAM - LONG TERM LAB WORK MONTHLY NOTE -PA NEW CONCERN LONG TERM LAB WORK LABWORK Chief Complaint MONTHLY EXAM - YARN WASHER LONG TERM LAB WORK MONTHLY EXAM - MD LONG TERM LAB WORK MONTHLY NOTE -PA NEW CONCERN LONG TERM LAB WORK MONTHLY EXAM MD LABWORK LONG TERM LAB WORK Chief Complaint LONG TERM LAB WOR K MONTHLY NOTE -PA NEW CONCERN LONG TERM LAB WORK MONTHLY EXAM MD LABWORK LONG TERM LAB WORK LONG TERM LAB WORK LONG TERM LAB WORK Chief Complaint NEW CONCERN LONG TERM LAB WORK MONTHLY EXAM MD LABWORK LONG TERM LAB WORK LONG TERM LAB WORK NEW CONCERN LONG TERM LAB WORK MONTHLY EXAM Chief Complaint Admit Date MONTHLY NOTE June 07, 2024 4: 12pm LONG TERM LAB WORK June 11, 2024 5:30am NEW CONCERN June 18, 2024 1 :49pm LONG TERM LAB WORK July 09, 2024 5:00am MONTHLY EXAM July 09, 2024 5 :27pm LONG TERM LAB WORK August 06, 2024 4: 00am LONG TERM LAB WORK August 19, 2024 1 2:05pm Chief Complaint Admit Date MONTHLY NOTE June 07, 2024 4: 12pm LONG TERM LAB WORK June 11, 2024 5:30am NEW CONCERN June 18, 2024 1 :49pm LONG TERM LAB WORK July 09, 2024 5:00am MONTHLY EXAM July 09, 2024 5 :27pm NEW CONCERN August 05, 2024 4:07 pm LONG TERM LAB WORK August 06, 2024 4: 00am LONG TERM LAB WORK August 19, 2024 1 2:05pm NEW CONCERN August 19, 2024 4:4 9pm Chief Complaint Admit Date NEW CONCERN August 05, 2024 4:07 pm LONG TERM LAB WORK August 06, 2024 4: 00am LONG TERM LAB WORK August 19, 2024 1 2:05pm NEW CONCERN August 19, 2024 4:4 9pm LONG TERM LAB WORK September 03, 2024 5: 00am MONTHLY EXAM September 03, 2024 4:52 pm LABWORK September 04, 2024 5:00 am LONG TERM LAB WORK October 08, 2024 5:00 am Chief Complaint Admit Date NEW CONCERN August 05, 2024 4:07 pm LONG TERM LAB WORK August 06, 2024 4: 00am LONG TERM LAB WORK August 19, 2024 1 2:05pm NEW CONCERN August 19, 2024 4:4 9pm LONG TERM LAB WORK September 03, 2024 5: 00am MONTHLY EXAM September 03, 2024 4:52 pm LABWORK September 04, 2024 5:00 am LONG TERM LAB WORK October 08, 2024 5:00 am LONG TERM LAB WORK October 11, 2024 12:3 0pm Chief Complaint Admit Date LONG TERM LAB WORK September 03, 2024 5: 00am MONTHLY EXAM September 03, 2024 4:52 pm LABWORK September 04, 2024 5:00 am MONTHLY NOTE October 07, 2024 2:34pm LONG TERM LAB WORK October 08, 2024 5:00 am LONG TERM LAB WORK October 11, 2024 12:3 0pm LONG TERM LAB WORK November 05, 2024 5:0 0am LONG TERM LAB WORK November 07, 2024 5:0 0am LONG TERM LAB WORK November 15, 2024 5: 30am LABWORK December 04, 2024 5:00a m LABWORK December 16, 2024 5:00 am Chief Complaint Admit Date LONG TERM LAB WORK September 03, 2024 5: 00am MONTHLY EXAM September 03, 2024 4:52 pm LABWORK September 04, 2024 5:00 am MONTHLY NOTE October 07, 2024 2:34pm LONG TERM LAB WORK October 08, 2024 5:00 am LONG TERM LAB WORK October 11, 2024 12:3 0pm NEW CONCERN October 11, 2024 2:52pm LONG TERM LAB WORK November 05, 2024 5:0 0am LONG TERM LAB WORK November 07, 2024 5:0 0am LONG TERM LAB WORK November 15, 2024 5: 30am [...] accepted: Orders in this encounter This technologist ([id number]) and ([id number]) wore surgical masks/gloves during MRI exam. Patient wore surgical mask. documented in this encounter Reason for Visit (unrecogniz ed section and content) Reason Comments Multiple Sclerosis Ocrevus Specialty Diagnoses / Procedures Referred By Contac t Referred To Contact Infusion Therapy Diagnoses Multiple sclerosis, primary progressive (HCC) Procedures IL INJECTION, OCRELIZUMAB, 1 MG Willard Epperson MD [address] [facility] [address] [place] [address] [facility] [address] [place] [address] Referral ID Status Reason Start Date Expiration Date V isits Requested Visits Authorized [id number] Pending Review 03/31/2021 05/30/2021 1 1 Status Reason Specialty Diagnoses / Procedures Referre d By Contact Referred To Contact Closed Radiology Diagnoses Multiple sclerosis (HCC) Procedures MR Brain With And Without Contrast Willard Epperson MD [address] [facility] [address] [place] [address] Reason Comments Multiple Sclerosis 6 month Ocrevus Status Reason Specialty Diagnoses / Procedures Referred By Contact Referred To Contact Closed Infusion Therapy Diagnoses Multiple sclerosis Procedures IL INJECTION, OCRELIZUMAB, 1 MG Willard Epperson MD [address] [facility] [address] [place] [address] [facility] [address] [place] [address] Reason Comments Multiple Sclerosis Status Reason Specialty Diagnoses / Procedures Referred By Contact Referred To Contact Closed Infusion Therapy Diagnoses Multiple sclerosis, primary progressive (HCC) Procedures IL INJECTION, OCRELIZUMAB, 1 MG Willard Epperson MD [address] [facility] [address] [place] [address] [facility] [address] [place] [address] Status Reason Specialty Diagnoses / Procedures Referre d By Contact Referred To Contact Closed Radiology Diagnoses Multiple sclerosis (HCC) Procedures MR Brain Without Contrast Willard Epperson MD [address] [place] [address] Status Reason Specialty Diagnoses / Procedures Referred By Contact Referred To Contact Authorized Infusion Therapy Diagnoses Multiple sclerosis Ocre[facility] 6 months Procedures IL INJECTION, OCRELIZUMAB, 1 MG CHEMO Willard Epperson MD [address] [facility] [address] [place] [id number] [facility] [address] [place] [address] Status Reason Specialty Diagnoses / Procedures Referred By Contact Referred To Contact Canceled Specialty Services Required/Patie nt's [facility] / Home Health Services Diagnoses Multiple sclerosis, primary progressive (HCC) Willard Epperson MD [address] [place] [address] [place] [address] Status Reason Specialty Diagnoses / Procedures Referred By Contact Referred To Contact Authorized Infusion Therapy Diagnoses Multiple sclerosis, primary progressive (HCC) Procedures IL INJECTION, OCRELIZUMAB, 1 MG Willard Epperson MD [address] [place] [address] [facility] [address] [place] [address] Reason Comments Multiple Sclerosis Ocrevus 6mo, 2hr Status Reason Specialty Diagnoses / Procedures Referred By Contact Referred To Contact Closed Infusion Therapy Diagnoses Multiple sclerosis Ocrevus 6 months Procedures IL INJECTION, OCRELIZUMAB, 1 MG CHEMO Willard Epperson MD [address] [facility] [address] [place] [address] [facility] [address] [place] [address] Reason Onset Date Comments Medication Refill 01/08/2021 Reason Comments Multiple Sclerosis Care Teams (unrecognized sec tion and content) Horologist Relationship Specialty Start Date End Date Joan Hughes MD [address] [facility] [address] [place] [id number] PCP - General Family Medicine 09/28/18 Horologist Relationship Specialty Start Date End Date Joan Hughes MD [address] [facility] [address] [place] [address] [id number] PCP - General Family Medicine 09/28/18 Horologist Relationship Specialty Start Date End Date Joan Hughes MD [address] [facility] [address] [place] [address] [id number] PCP - General Family Medicine 09/28/18 Horologist Relationship Specialty Start Date End Date Joan Hughes MD [address] [facility] [address] [place] [address] [id number] PCP - General Family Medicine 09/28/18 Horologist Relationship Specialty Start Date End Date Joan Hughes MD [address] [place] [address] PCP - General Family Practice 05/11/16 Team Status: Active Member Role Status Dates Dr. Joan Hughes MD Family Provider Active Dr. Joan Hughes MD Primary Care Provider Active Team Status: Inactive Member Role Status Dates Dr. Joan Hughes MD Primary Care Provider Active Britney Worthington YARN WASHER, YARN WASHER-C Attending Provider Active Team Status: Inactive Member [...] Active Asad Jamison MD Attending Provider Active Horologist Relationship Specialty Start Date End Date Joan Hughes MD [id number] [place] [address] PCP - General Family Medicine 09/28/18 Team [...] End: June 07, 2024 Britney Worthington NP YARN WASHER-C Attending Provider Active Start: June 07, 2024 [...] 2024 End: June 18, 2024 Britney Worthington YARN WASHER, YARN WASHER-C Attending Provider Active Start: June 18, 2024 [...] End: August 05, 2024 Britney Worthington NP YARN WASHER-C Attending Provider Active Start: August 05, 2024 [...] End: August 19, 2024 Britney Worthington NP YARN WASHER-C Attending Provider Active Start: August 19, 2024 [...] Status: Inactive Member Role/Relationship Status Dates Dr. Jona Hughes MD Primary Care Provider Active Start: [...] Care Provider Active Start: December 16, 2024 Breanen CULVER MD Attending Provider Active Start: December [...] section and content) DATE CREATED AUTHOR 04/13/2021 [facility] DATE CREATED AUTHOR AUTHOR'S ORGANIZ ATION 01/15/2022 [facility] DATE CREATED AUTHOR AUTHOR'S ORGANIZ ATION 11/16/2022 [facility] DATE CREATED AUTHOR AUTHOR'S ORGANIZ ATION 01/03/2025 [facility] Goals (unrecognized section and content) Goals [...] or prosecute any alcohol or drug abuse patient.[facility] FOR RECORDS PERTAINING TO PATIENTS WHO [...] BE BASED ON THE PRIMARY CLINICAL RECORDS. [employer] provides no warranty or guarantee of the accuracy or completeness of information in this document.
--- NOTE | 2025-01-04 04:05 | RAD_ITS ---
PROCEDURE: CHEST 1 VIEW (PORTABLE) 01/04/2025 REASON FOR EXAM: ?LLL INFILTRATE. TECHNIQUE: 2 frontal views of the chest COMPARISON: CT from earlier today FINDINGS: Hardware: EKG leads overlie the chest. Satisfactory appearance of the right IJ central venous catheter Heart: The heart size is normal. Lungs: Lungs are expanded, right lung is clear, there is opacifications in the retrocardiac left lower lobe likely atelectasis or early infiltrate. Follow-up recommended to ensure resolution Bones: Degenerative changes are identified within the thoracic spine. Other: RAD/Chest 1 View (Portable) IMPRESSION: Retrocardiac opacifications in the left lung base likely atelectasis or early i nfiltrate. Follow-up recommended to ensure resolution Reading Location: [id number]
[2025-01-04] MEDS: Pantoprazole Sodium 40 MG in 0.9% Normal Saline (100mL MB+) 100 ML 300 MG IV ×3 (04:32→21:08)
[2025-01-04] MEDS: 0.9% Saline Lock 10 ML Syringe IV ×6 (04:33→22:17)
[2025-01-04 05:20] LABS: Hematocrit 34.7 % (37-47); Hemoglobin 10.5 g/dL (12.0-15.0); Immature Granulocytes Count 0.570 X10^3/uL (0.0-0.0); Mean Corp Hgb Conc 30.3 g/dL (32-36); Mean Corpuscular Volume 81.3 fL (81-99); Mean Platelet Vol. 8.3 fl (6.2-12.0); NRBC Flagged by Analyzer 0 % (0-5); POSITIVE DIFFERENTIAL YES; Platelet Count 378 K/mm3 (150-450); RBC Distribution Width CV 17.0 % (11.6-14.6); RBC Distribution Width SD 49.9 fl (35.1-43.9); Red Blood Count 4.27 M/mm3 (4.2-5.4); White Blood Count 12.7 K/mm3 (4.4-11.0)
[2025-01-04] MEDS: Lactated Ringers 1,000 ML 100 ML IV ×2 (06:16→15:47)
[2025-01-04] MEDS: Vancomycin HCl 1,750 MG in 0.9% Normal Saline (500mL Bag) 500 ML 250 MG IV (06:16)
[2025-01-04] MEDS: 0.9% Normal Saline (250mL Bag) 250 ML 15 ML IV (06:16)
--- NOTE | 2025-01-04 06:35 | CON.PCM.CC_ITS ---
HPI Consult Data Date of Consult: 01/04/25 HPI Narrative HPI Narrative: Ms. Bowman is a 64 year-old female with HTN, HLD, DM2, multiple sclerosis, chronic hypoxemic respiratory failure, and chronic anemia how presents with altered mental status. [facility] along with an SaO2 of 86% on RA, and upon arrival to [place], she was found to be hypotensive despite 3L of fluids in the setting of laboratory data that was remarkable for K 5.5, HCO3 14, a UTI, and H/H 10/34. Her imaging was remarkable for possible airspace disease. On my examination, she is somnolent and not alert or oriented. She is on a fairly high dose of levophed. [facility] Medical History (Updated 01/04/25 @ 02:[address] Willian Fuller, ) Hyperlipemia, fat-induced Hyperlipemia Essential (primary) hypertension Type 2 diabetes mellitus Multiple sclerosis Hypertension Depression Vertigo Home Medications ?Medication ?Instructions ?Recorded ?Last Taken ?Type acetaminophen 500 mg tablet 1,000 mg PO Q4H PRN PRN Pa in 07/03/18 09/16/21 History atenolol 25 mg tablet 25 mg PO DAILY heart 9 09/16/21 History Lactobacillus rhamnosus GG 10 1 cap PO DAILY 01/03/25 Unknown History billion cell capsule atorvastatin 10 mg tablet (Lipitor) 10 mg PO QHS 01/03 Unknown History ciprofloxacin HCl 250 mg tablet 250 mg PO BID 01/03/25 Unknown History (Cipro) dulaglutide 1.5 mg/0.5 mL 1.5 mg subcut QWEEK 01/03/25 Unknown History subcutaneous pen injector (Trulicity) escitalopram oxalate 10 mg tablet 10 mg PO DAILY 01/03 Unknown History (Lexapro) fenofibrate 54 mg tablet 54 mg PO DAILY 01/03/25 Unkn own History lidocaine 4 % topical patch 1 patch topical DAILY 06/29 Unknown History (Aspercreme (lidocaine)) loratadine 10 mg tablet 10 mg PO DAILY 01/03/25 Unkn own History (Allerclear) nitroglycerin 0.4 mg sublingual 0.4 mg sublingual Q5M 01/03/25 Unknown History tablet oxycodone 5 mg tablet 2.5 mg PO Q4H pain 01/03/25 Unknown History sennosides 8.6 mg-docusate sodium 1 tab-cap PO DAILY 0 01/03/25 Unknown History 50 mg tablet (Senna Plus) Allergy/AdvReac Type Severity Reaction Status Date / Time naproxen Allergy Rash Verified 01/03/25 21:56 Penicillins Allergy Rash Verified 01/03/25 21:56 Sulfa (Sulfonamide Allergy Rash Verified 01/03/25 21:56 Antibiotics) tizanidine AdvReac Unknown Verified 01/03/25 21:56 Family History Other Hypertension Surgical History Hx of appendectomy Social History Smoking Status: Never smoker ROS Review of Systems ROS Unobtainable: due to mental status Objective Data Objective Data Vital Signs: Vital Signs Last response 3 Temperature 38.8 C H 01/04/25 03:00 Temperature Source Core 01/04/25 03:00 Pulse Rate 124 H 01/04/25 04:13 Respiratory Rate 22 H 01/04/25 05:00 Respiratory Effort Normal, Non-Labored 01/04/25 05:00 Respiratory Depth Normal 01/04/25 05:00 Respiratory Pattern Normal 01/04/25 05:00 Blood Pressure 97/57 L 01/04/25 03:00 Blood Pressure Mean 70 01/04/25 03:00 Pulse Ox 95 01/04/25 03:00 Oxygen Delivery Method Room Air 01/04/25 05:00 Oxygen Flow Rate (L/min) 2 01/03/25 23:45 I&O: I&O Last 24 Hours 3 01/03/25 01/03/25 01/04/25 11:59 23:59 11:59 Intake Total 1999 1507.59 / 1507.59 Output Total 625 / 625 Balance 1999 882.59 / 882.59 I&O: Total Stay 3 01/03/25 21:54 thru 01/04/25 06:00 Intake Total 3507.59 Output Total 625 Balance 2882.59 Current Meds Ordered / Administered: Current meds ordered / Administered 3 Generic Name Dose Route Start Last Admin Trade Name Freq PRN Reason Stop Dose Admin Acetaminophen 650 mg 01/04/25 03:45 01/04/25 05:50 Acetaminophen 650 Mg Suppository RC 650 mg Q6H PRN PRN Administration Pain 1-10 or Fever Hydrocortisone Sodium Succinate 50 mg 01/04/25 12:00 Hydrocortisone Sod Succinate 100 Mg/2 Ml Vial IV Q6 PEGGY Norepinephrine Bitartrate 8 mg in 250 mls @ 9.375 mls/hr 01/04/25 02:05 01/04/25 06:00 CONT INF 15 mcg/min .[id number] PEGGY 28.1 mls/hr Titration Protocol 5 MCG/MIN Azithromycin 500 mg/ Sodium 255 mls @ 255 mls/hr 01/04/25 22:00 Chloride IV 2200 PEGGY Pantoprazole Sodium 40 mg/ 100 mls @ 300 mls/hr 01/04/25 03:45 01/04/25 05:03 Sodium Chloride IV Infused Q12 PEGGY Infusion Sodium Chloride 250 mls @ 15 mls/hr 01/04/25 03:55 01/04/25 06:16 IV 15 mls/hr .[id number] PRN Administration Saline Flush Sodium Chloride 250 mls @ 15 mls/hr 01/04/25 03:55 IV .[id number] PRN Additional IVPB Infusion Vancomycin IV-PHARMACY TO DOSE 500 mls @ 250 mls/hr 01/04/25 05:43 1 each/ Sodium Chloride IV PRN PRN Rx to Dose Protocol Piperacillin Sod/Tazobactam 50 mls @ 12.5 mls/hr 01/04/25 06:00 Sod 3.375 gm/ Sodium Chloride IV Q8 PEGGY Lactated Ringer's 1,000 mls @ 100 mls/hr 01/04/25 05:45 01/04/25 06:16 IV 100 mls/hr .Q10H PEGGY Administration Vancomycin HCl 1,750 mg/ 535 mls @ 250 mls/hr 01/04/25 06:00 01/04/25 06:16 Sodium Chloride IV 01/04/25 08:08 250 mls/hr X1 ONE Administration Vasopressin 20 units/ Sodium 25 mls @ 3 mls/hr 01/04/25 06:15 Chloride CONT INF .Q8H20M PEGGY 0.04 UNITS/MIN Sodium Chloride 10 - 40 ml 01/04/25 03:55 01/04/25 04:33 0.9% Saline Lock 10 Ml Syringe IV 20 ml UD PRN Administration SALINE FLUSH Physical Exam Narrative GENERAL: NOT ALERT OR ORIENTED HEENT: PERRLA; EOMI; anicteric NECK: soft, supple, no HOLLI; no JVP; no TM CV: RRR; -m/r/g RESP: CTAB; no wheezes, crackles or rhonchi ABD: soft, NT, ND, ABS x 4 EXT: WWP; no C/C/E NEURO: DEFERRED Lab / Micro Data 01/04/25 04:55 01/03/25 22:00 Labs: Laboratory Results - last 24 hr 01/03/25 22:00: WBC 17.3 H, RBC 5.39, Hgb 12.9, Hct 42.9, MCV 79.6 L, MCH 23.9 L , MCHC 30.1 L, RDW Std Deviation 49.3 H, RDW Coeff of Hung 17.7 H, Plt Count 564 H, MPV 8.1, Immature Gran % (Auto) 1.900 H, Neut % (Auto) 92.8 H, Lymph % (Auto) 1.5 L, [place] % (Auto) 3.1, Eos % (Auto) 0.1, Baso % (Auto) 0.6, Absolute Neuts (auto) 16.0 H, Absolute Lymphs (auto) 0.26 L, Nucleated RBC % 0, PT 15.8 H, INR 1.2, APTT 29.3, Sodium 136, Potassium 5.5 H, Chloride 99, Carbon Dioxide 14.4 L, Anion Gap 22 H, BUN 39 H, Creatinine 0.89, Estim Creat Clear Calc 53.69, Est GFR (MDRD) Non-Af 72, BUN/Creatinine Ratio 44.1 H, Glucose 153 H, Lactic Acid 1.7, Calcium 10.6, Total Bilirubin 0.18, AST 22, ALT 23, Alkaline Phosphatase 100, Total Protein 7.7, Albumin 3.2 L, Globulin 4.5 H, Albumin/Globulin Ratio 0.7 L 01/03/25 22:08: POC Glucose 146 H 01/03/25 22:21: Urine Color Yellow, Urine Clarity Turbid, Urine pH 6.0, Ur Specific [place] 1.015, Urine Protein 100 H, Urine Glucose (UA) Normal, Urine Ketones 5 H, Urine Occult Blood 250 H, Urine Nitrite Negative, Urine Bilirubin Negative, Urine Urobilinogen Normal, Ur Leukocyte Esterase 500 H, Urine RBC 0 SEEN, Urine WBC >100 SEEN, Ur Squamous Epith Cells 0 SEEN, Urine Bacteria 0 SEEN, Urine Mucus 0 SEEN 01/04/25 04:55: WBC 12.7 H, RBC 4.27, Hgb 10.5 L, Hct 34.7 L, MCV 81.3, MCH 24.6 L, MCHC 30.3 L, RDW Std Deviation 49.9 H, RDW Coeff of Hung 17.0 H, Plt Count 378, MPV 8.3, Immature Gran % (Auto) 4.500 H, Neut % (Auto) 90.5 H, Lymph % (Auto) 1.9 L, [place] % (Auto) 2.9, Eos % (Auto) 0.0, Baso % (Auto) 0.2, Absolute Neuts (auto) 11.5 H, Absolute Lymphs (auto) 0.24 L, Nucleated RBC % 0 Micro: Microbiology 01/03/25 22:21 Urine Catheter - Mac Streptococcus pneumoniae Antigen (M - Final 01/03/25 22:21 Urine Catheter - Mac Legionella Antigen - Final 01/04/25 04:55 Stool Stool Occult Blood (VIDHYA) - Final ABG Data ABG results: ABG 01/03/25 22:21 Specimen Type ART Sample Site L Radial pH 7.39 Bicarbonate Actual 15.8 L Total CO2 17 Base Excess -9 L O2 Saturation 99 O2 % 15.0 ABG pCO2 26.1 L ABG pO2 135 H Bebeto Test Positive O2 Delivery Device NRB Vent Mode Not entered Imaging Radiology Impression Brain CT 01/03/25 22:03 IMPRESSION: No evidence of acute intracranial pathology. Moderate generalized parenchymal volume loss, and patchy hypoattenuation in the supratentorial white matter similar to prior exam; likely a combination of chronic microangiopathic changes and demyelinating disease, with reported history of multiple sclerosis. Reading Location: [facility] Chest X-Ray 01/03/25 22:35 IMPRESSION: Left basilar/retrocardiac consolidation and/or atelectasis. Reading Location: [id number] Chest X-Ray 01/04/25 02:05 IMPRESSION: Successful CVC placement. Reading Location: [place] [id number] Chest/Abdomen/Pelvis CT 01/04/25 02:45 IMPRESSION: Bibasilar airspace disease favoring atelectasis. Possible left-sided urinary tract infection. Possible bilateral ureteral reflux. Cystitis. Reading Location: [place] [address] Assessment and Plan . Assessment and plan: LINES R-IJ / DRIPS Levophed Vasopressin ANTIBIOTICS AND STEROIDS Vancomycin 01/04 Zosyn 8/2 Hydrocortisone / ASSESSMENT 1. Altered Mental Status 2. Septic Shock 3. Urinary Tract Infection 4. Possible Pneumonia 5. Non-Anion Gap Metabolic Acidosis 6. Hypertension 7. Hyperlipidemia 8. Type II Diabetes Mellitus 9. Multiple Sclerosis 10. Chronic Anemia PLAN 1. Mental status with slight improvement; no acute findings on CT Head 2. Fluids + Vasopressors to maintain MAP 65 3. Stress dose steroids 4. Broad Abx; cultures pending; MRSA pending 5. Hold any cardiac medications 6. Glucose check q4 with ISS 7. DNR; possible Hospice (evaluated at [place]; family was not ready for it just yet) [facility] Critical Care Time: 60 Minutes The entirety of this encounter was done via telemedicine with audio and visual. Consent was obtained for a telemedicine encounter. Gerardo Avalos MD Pulmonary and Critical Care Medicine
[2025-01-04 06:41] LABS: Magnesium 1.7 mg/dL (1.5-2.2); Vitamin B12 1027 pg/mL (180-914)
--- NOTE | 2025-01-04 06:45 | PCM.RX.CS ---
Consult Antibiotic Management Pharmacy has been consulted to manage selected antibiotic: Vancomycin Type of Intervention Type of Consult: New start Suspected Infection Suspected Infection: Sepsis Microbiology Microbiology: Microbiology 01/03/25 22:21 Urine Catheter - Mac Streptococcus pneumoniae Antigen (M - Final 01/03/25 22:21 Urine Catheter - Mac Legionella Antigen - Final 01/04/25 04:55 Stool Stool Occult Blood (VIDHYA) - Final Dosing Weight Weight used for dosin kg Estimated Creatinine Clearance Estimated Creatinine Clearance: 54 Goal Trough Goal Trough: 15-20 mcg/mL Pharmacy Plan for Drug Dosing Pharmacy Plan for Drug Dosing: Pharmacy Service will continue to monitor and adjust dosing as required. Follow-Up Labs Follow-Up Labs: Trough: Vancomycin Date/Time Labs Ordered Labs to be done on [date and time ordered]: 01/05/25 @1800
[2025-01-04] MEDS: Vasopressin 20 UNITS in 0.9% Normal Saline (50mL Bag) 24 ML 3 UNITS CONT INF ×3 (06:58→17:34)
[2025-01-04 07:00] LABS: Barbiturate Urine NEGATIVE (< 200 ng/mL); Benzodiazepine Urine NEGATIVE (< 200 ng/mL); PCP Urine NEGATIVE (< 25 ng/mL); THC Urine NEGATIVE (< 50 ng/mL)
[2025-01-04 07:02] LABS: Troponin T High Sensitivity 47 ng/L (<=14)
--- NOTE | 2025-01-04 07:11 | PCM.PN.HOSP ---
Reason for Visit Chief Complaint: Unresponsive. Subjective Subjective Patient admitted earlier this morning with septic shock. There evidently was some conversation about pursuing hospice however nobody has been able to get a hold of her sister who is her DPOA. Working with social work trying to remedy this. Objective Data Objective Data Vital Signs: Vital Signs Temp Pulse Resp BP Pulse Ox O2 Del Method O2 Flow Rate 101.9 F H 124 H 22 H 97/57 L 95 Room Air 2 01/04/25 03:00 01/04/25 04:13 01/04/25 05:00 01/04/25 03:00 01/04/25 03:00 01/04/25 05:00 01/03/25 23:45 Oxygen Flow Rate (L/min) 2 Oxygen Delivery Method Room Air Weight: 65.8 kg Body Mass Index (BMI) 24.1 Intake & Output: Intake and Output for Last 24 Hours 01/02/25 01/03/25 01/04/25 23:59 23:59 23:59 Intake Total 1999 1535.69 / 1535.69 Output Total 625 / 625 Balance 1999 910.69 / 910.69 Lab / Micro Data 01/04/25 04:55 01/04/25 04:55 Labs: Laboratory Results - last 24 hr 01/03/25 22:00: WBC 17.3 H, RBC 5.39, Hgb 12.9, Hct 42.9, MCV 79.6 L, MCH 23.9 L, MCHC 30.1 L, RDW Std Deviation 49.3 H, RDW Coeff of Hung 17.7 H, Plt Count 564 H, MPV 8.1, Immature Gran % (Auto) 1.900 H, Neut % (Auto) 92.8 H, Lymph % (Auto) 1.5 L, [place] % (Auto) 3.1, Eos % (Auto) 0.1, Baso % (Auto) 0.6, Absolute Neuts (auto) 16.0 H, Absolute Lymphs (auto) 0.26 L, Nucleated RBC % 0, PT 15.8 H, INR 1.2, APTT 29.3, Sodium 136, Potassium 5.5 H, Chloride 99, Carbon Dioxide 14.4 L, Anion Gap 22 H, BUN 39 H, Creatinine 0.89, Estim Creat Clear Calc 53.69, Est GFR (MDRD) Non-Af 72, BUN/Creatinine Ratio 44.1 H, Glucose 153 H, Lactic Acid 1.7, Calcium 10.6, Total Bilirubin 0.18, AST 22, ALT 23, Alkaline Phosphatase 100, Total Protein 7.7, Albumin 3.2 L, Globulin 4.5 H, Albumin/Globulin Ratio 0.7 L 01/03/25 22:08: POC Glucose 146 H 01/03/25 22:21: Urine Color Yellow, Urine Clarity Turbid, Urine pH 6.0, Ur Specific [place] 1.015, Urine Protein 100 H, Urine Glucose (UA) Normal, Urine Ketones 5 H, Urine Occult Blood 250 H, Urine Nitrite Negative, Urine Bilirubin Negative, Urine Urobilinogen Normal, Ur Leukocyte Esterase 500 H, Urine RBC 0 SEEN, Urine WBC >100 SEEN, Ur Squamous Epith Cells 0 SEEN, Urine Bacteria 0 SEEN, Urine Mucus 0 SEEN 01/04/25 04:55: WBC 12.7 H, RBC 4.27, Hgb 10.5 L, Hct 34.7 L, MCV 81.3, MCH 24.6 L, MCHC 30.3 L, RDW Std Deviation 49.9 H, RDW Coeff of Hung 17.0 H, Plt Count 378, MPV 8.3, Immature Gran % (Auto) 4.500 H, Neut % (Auto) 90.5 H, Lymph % (Auto) 1.9 L, [place] % (Auto) 2.9, Eos % (Auto) 0.0, Baso % (Auto) 0.2, Absolute Neuts (auto) 11.5 H, Absolute Lymphs (auto) 0.24 L, Nucleated RBC % 0, Lactic Acid 1.8, Phosphorus 2.1 L, Magnesium 1.7, Troponin T High Sens 47 H, Vitamin B12 1027 H, TSH 0.596, Urine Opiates Screen NEGATIVE, U Buprenorphine Qual NEGATIVE, Ur Oxycodone Screen NEGATIVE, Urine Methadone Screen NEGATIVE, Urine Fentanyl Screen NEGATIVE, Ur Barbiturates Screen NEGATIVE, Ur Phencyclidine Scrn NEGATIVE, Ur Amphetamines Screen NEGATIVE, U Benzodiazepines Scrn NEGATIVE, Urine Cocaine Screen NEGATIVE, U Cannabinoids Screen NEGATIVE Micro: Microbiology 01/03/25 22:21 Urine Catheter - Mac Streptococcus pneumoniae Antigen (M - Final 01/03/25 22:21 Urine Catheter - Mac Legionella Antigen - Final 01/04/25 04:55 Stool Stool Occult Blood (VIDHYA) - Final ABG Data ABG results: ABG 01/03/25 22:21 Specimen Type ART Sample Site L Radial pH 7.39 Bicarbonate Actual 15.8 L Total CO2 17 Base Excess -9 L O2 Saturation 99 O2 % 15.0 ABG pCO2 26.1 L ABG pO2 135 H Bebeto Test Positive O2 Delivery Device NRB Vent Mode Not entered Radiography Diagnostic Testing: Radiology Impression Brain CT 01/03/25 22:03 IMPRESSION: No evidence of acute intracranial pathology. Moderate generalized parenchymal volume loss, and patchy hypoattenuation in the supratentorial white matter similar to prior exam; likely a combination of chronic microangiopathic changes and demyelinating disease, with reported history of multiple sclerosis. Reading Location: [facility] Chest X-Ray 01/03/25 22:35 IMPRESSION: Left basilar/retrocardiac consolidation and/or atelectasis. Reading Location: [id number] Chest X-Ray 01/04/25 02:05 IMPRESSION: Successful CVC placement. Reading Location: [place] [id number] Chest/Abdomen/Pelvis CT 01/04/25 02:45 IMPRESSION: Bibasilar airspace disease favoring atelectasis. Possible left-sided urinary tract infection. Possible bilateral ureteral reflux. Cystitis. Reading Location: [facility] Assessment & Plan Assessment/Plan (1) Septic shock: (2) Toxic metabolic encephalopathy: (3) Acute UTI: (4) Multiple sclerosis: (5) Leukocytosis: (6) Anemia: (7) Metabolic acidosis: (8) Elevated troponin: (9) Left lower lobe pulmonary infiltrate: (10) Hypophosphatemia: PLAN: Plan Septic shock secondary to complicated UTI/+-left lower lobe pneumonia - CT of the chest abdomen pelvis shows bibasilar airspace disease and signs consistent with urinary tract infection - Patient received fluid resuscitation per sepsis protocol - Follow-up exam resulted in ongoing hypotension so she has been started on pressors and currently on Levophed and vasopressin - Keep MAP greater than 65 - Continue broad-spectrum antibiotics - MRSA PCR is positive - Preliminary urine is positive for gram-positive organisms - Continue bank Zosyn and azithromycin and will likely be able to discontinue azithromycin tomorrow - Will check ABG as she appears to have metabolic acidosis if we can improve her acid-base status pressures may work better and we can wean Toxic/metabolic encephalopathy - Baseline mental status is unknown however she is clearly depressed from her baseline - Continue to monitor - Should improve as infection improves Leukocytosis - Has trended down since initiation of antimicrobial therapy Anion gap metabolic acidosis - Lactate is normal - Check salicylate level - Alcohol level is normal - Patient is not on iron supplementation, uremic and methanol and polyethylene glycol as well as [place] hide are unlikely - Check beta hydroxybutyrate Elevated troponin - Initial troponin elevated with downtrend since then - Suspect secondary to subendocardial ischemia due to demand with sepsis - No further workup at this time Hyperkalemia - Resolved Thrombocytosis - Likely acute phase reactant - Repeat lab in a.m. Essential hypertension/hyperlipidemia - Hold atenolol - Hold atorvastatin Hold fenofibrate DM-2 - On Trulicity as an outpatient-will hold while inpatient - SSI - Accu-Cheks as ordered - A1c was 6.9 with current therapy - Will check beta hydroxybutyrate with anion gap elevation and acidosis being present Documented history of chronic hypoxic respiratory failure - Patient is stable on room air - Unclear if this is an accurate diagnosis or not - Will continue to monitor History of multiple sclerosis - Patient with chronic debility and significant functional decline and disability - Overall seems would be appropriate for hospice - Will try to get in contact with decision makers and discuss further if possible -case management is assisting in this Depression/anxiety - Hold home oral agents until mental status improves DVT prophylaxis - Start Lovenox subcu daily CODE STATUS - DNR CCA with no intubation Charges/Coding Visit Charges Inpatient E&M: 78495 [facility] Hosp L3
[2025-01-04 07:17] LABS: Alcohol, Blood (Medical)-Serum < 10.1 mg/dL (<=10.0); FOLATES,SERUM (FOLIC ACID) 9.34 ng/mL (4.60-34.80)
[2025-01-04 07:36] LABS: Troponin T High Sens 2 HR 62 ng/L (<=14)
[2025-01-04 07:42] LABS: CPK Total, Creatine Kinase 59 U/L (24-195); Cholesterol 65 mg/dL (<=200); Low Density Lipoprotein Calc. 4 mg/dL; Triglycerides 186 mg/dL; Very Low Density Lipoprotein 37 mg/dL (5-40); cholesterol:hdl ratio screen 2.73
[2025-01-04 07:51] LABS: AST(SGOT) 33 U/L (<=31); Alanine Aminotransfer ALT/SGPT 18 U/L (<=34); Albumin, Serum 2.5 g/dL (3.4-4.8); Alkaline Phosphatase 82 U/L (35-104); Anion Gap 20 (5-15); BUN 28 mg/dL (4-19); BUN/Creat Ratio 38.6 RATIO (10-20); Calcium,Total 8.4 mg/dL (7.6-11.0); Carbon Dioxide 10.8 mmol/L (21.0-32.0); Chloride 111 mmol/L (98-108); Estimated Creatinine Clearance 62.24 ml/min (50-250); Globulin 3.3 g/dL (2.2-4.2); Glucose 163 mg/dL (70-99); Potassium 4.1 mmol/L (3.3-5.1)
[2025-01-04] MEDS: Piperacil/Tazobactam 3.375 GM in 0.9% Normal Saline (50mL MB+) 50 ML IV ×3 (08:42→21:08)
--- NOTE | 2025-01-04 09:55 | NURSING ---
This RN called to [facility], spoke w/pt's nurse. She states yesterday pt did meet w/hospice in their facility yesterday 01/03. She is unaware of any outcome of the meeting. She does state that someone from the facility tried at least 10times to reach pt's EARL, her sister Sandi. Voice mailbox is full. This RN also reached out to Sandi and also was unsuccessful as voice mailbox is still full.
--- NOTE | 2025-01-04 10:05 | PCM.PN.TICU ---
Objective Data Objective Data Vital Signs: Vital Signs Last response Temperature 38.8 C H 01/04/25 03:00 Temperature Source Core 01/04/25 03:00 Pulse Rate 124 H 01/04/25 04:13 Respiratory Rate 22 H 01/04/25 05:00 Respiratory Effort Normal, Non-Labored 01/04/25 05:00 Respiratory Depth Normal 01/04/25 05:00 Respiratory Pattern Normal 01/04/25 05:00 Blood Pressure 97/57 L 01/04/25 03:00 Blood Pressure Mean 70 01/04/25 03:00 Pulse Ox 95 01/04/25 03:00 Oxygen Delivery Method Room Air 01/04/25 05:00 Oxygen Flow Rate (L/min) 2 01/03/25 23:45 I&O: I&O Last 24 Hours 01/03/25 01/03/25 01/04/25 11:59 23:59 11:59 Intake Total 1999 1591.89 / 1591.89 Output Total 625 / 625 Balance 1999 966.89 / 966.89 I&O: Total Stay 01/03/25 21:54 thru 01/04/25 09:06 Intake Total 3591.89 Output Total 625 Balance 2966.89 Current Meds Ordered / Administered: Current meds ordered / Administered Generic Name Dose Route Start Last Admin Trade Name Freq PRN Reason Stop Dose Admin Acetaminophen 650 mg 01/04/25 03:45 01/04/25 05:50 Acetaminophen 650 Mg Suppository RC 650 mg Q6H PRN PRN Administration Pain 1-10 or Fever Enoxaparin Sodium 40 mg 01/04/25 10:00 Enoxaparin 40 Mg/0.4 Ml Syringe SC DAILY [facility] Hydrocortisone Sodium Succinate 50 mg 01/04/25 12:00 Hydrocortisone Sod Succinate 100 Mg/2 Ml Vial IV Q6 [facility] Norepinephrine Bitartrate 8 mg in 250 mls @ 9.375 mls/hr 01/04/25 02:05 01/04/25 09:00 CONT INF 15 mcg/min .[id number] PEGGY 28.1 mls/hr Titration Protocol 5 MCG/MIN Azithromycin 500 mg/ Sodium 255 mls @ 255 mls/hr 01/04/25 22:00 Chloride IV 2200 [facility] Pantoprazole Sodium 40 mg/ 100 mls @ 300 mls/hr 01/04/25 03:45 08/02/25 05:03 Sodium Chloride IV Infused Q12 PEGGY Infusion Sodium Chloride 250 mls @ 15 mls/hr 01/04/25 03:55 01/04/25 06:16 IV 15 mls/hr .[id number] PRN Administration Saline Flush Sodium Chloride 250 mls @ 15 mls/hr 01/04/25 03:55 IV .[id number] PRN Additional IVPB Infusion Vancomycin IV-PHARMACY TO DOSE 500 mls @ 250 mls/hr 01/04/25 05:43 1 each/ Sodium Chloride IV PRN PRN Rx to Dose Protocol Piperacillin Sod/Tazobactam 50 mls @ 12.5 mls/hr 01/04/25 06:00 01/04/25 08:42 Sod 3.375 gm/ Sodium Chloride IV 12.5 mls/hr Q8 PEGGY Administration Lactated Ringer's 1,000 mls @ 100 mls/hr 01/04/25 05:45 01/04/25 06:16 IV 100 mls/hr .Q10H PEGGY Administration Vasopressin 20 units/ Sodium 25 mls @ 3 mls/hr 01/04/25 06:15 01/04/25 06:58 Chloride CONT INF 0.04 units/min .Q8H20M PEGGY 3 mls/hr Administration 0.04 UNITS/MIN Vancomycin HCl 750 mg/ Sodium 265 mls @ 250 mls/hr 01/04/25 18:30 Chloride IV Q12H PEGGY Potassium Phosphate 30 mm/ 260 mls @ 55 mls/hr 01/04/25 10:15 Sodium Chloride IV 01/04/25 14:58 X1 ONE Magnesium Sulfate 2 gm/ 104 mls @ 52 mls/hr 01/04/25 09:25 Dextrose IV 01/04/25 11:24 X1 ONE Nystatin/Triamcinolone Acetonide 1 applic 01/04/25 14:00 Nystatin/Triamcin Cream Tube TOPICAL TID [facility] Protocol Sodium Chloride 10 - 40 ml 01/04/25 03:55 01/04/25 06:58 0.9% Saline Lock 10 Ml Syringe IV 30 ml UD PRN Administration SALINE FLUSH Vancomycin Protocol 1 lab 01/05/25 17:00 Vancomycin Trough/Random Due MC 01/05/25 19:00 DAILY [facility] Lab / Micro Data Attestation: I reviewed the patient's lab results. 01/04/25 04:55 01/04/25 04:55 Labs: Laboratory Results - last 24 hr 01/03/25 22:00: WBC 17.3 H, RBC 5.39, Hgb 12.9, Hct 42.9, MCV 79.6 L, MCH 23.9 L, MCHC 30.1 L, RDW Std Deviation 49.3 H, RDW Coeff of Hung 17.7 H, Plt Count 564 H, MPV 8.1, Immature Gran % (Auto) 1.900 H, Neut % (Auto) 92.8 H, Lymph % (Auto) 1.5 L, Hubbard % (Auto) 3.1, Eos % (Auto) 0.1, Baso % (Auto) 0.6, Absolute Neuts (auto) 16.0 H, Absolute Lymphs (auto) 0.26 L, Nucleated RBC % 0, PT 15.8 H, INR 1.2, APTT 29.3, Sodium 136, Potassium 5.5 H, Chloride 99, Carbon Dioxide 14.4 L, Anion Gap 22 H, BUN 39 H, Creatinine 0.89, Estim Creat Clear Calc 53.69, Est GFR (MDRD) Non-Af 72, BUN/Creatinine Ratio 44.1 H, Glucose 153 H, Lactic Acid 1.7, Calcium 10.6, Total Bilirubin 0.18, AST 22, ALT 23, Alkaline Phosphatase 100, Total Protein 7.7, Albumin 3.2 L, Globulin 4.5 H, Albumin/Globulin Ratio 0.7 L 01/03/25 22:08: POC Glucose 146 H 01/03/25 22:21: Urine Color Yellow, Urine Clarity Turbid, Urine pH 6.0, Ur Specific [place] 1.015, Urine Protein 100 H, Urine Glucose (UA) Normal, Urine Ketones 5 H, Urine Occult Blood 250 H, Urine Nitrite Negative, Urine Bilirubin Negative, Urine Urobilinogen Normal, Ur Leukocyte Esterase 500 H, Urine RBC 0 SEEN, Urine WBC >100 SEEN, Ur Squamous Epith Cells 0 SEEN, Urine Bacteria 0 SEEN, Urine Mucus 0 SEEN 01/04/25 04:55: WBC 12.7 H, RBC 4.27, Hgb 10.5 L, Hct 34.7 L, MCV 81.3, MCH 24.6 L, MCHC 30.3 L, RDW Std Deviation 49.9 H, RDW Coeff of Hung 17.0 H, Plt Count 378, MPV 8.3, Immature Gran % (Auto) 4.500 H, Neut % (Auto) 90.5 H, Lymph % (Auto) 1.9 L, Hubbard % (Auto) 2.9, Eos % (Auto) 0.0, Baso % (Auto) 0.2, Absolute Neuts (auto) 11.5 H, Absolute Lymphs (auto) 0.24 L, Nucleated RBC % 0, Sodium 142, Potassium 4.1, Chloride 111 H, Carbon Dioxide 10.8 L, Anion Gap 20 H, BUN 28 H, Creatinine 0.72, Estim Creat Clear Calc 62.24, Est GFR (MDRD) Non-Af 93, BUN/Creatinine Ratio 38.6 H, Glucose 163 H, Lactic Acid 1.8, Calcium 8.4, Phosphorus 2.1 L, Magnesium 1.7, Total Bilirubin < 0.15, AST 33 H, ALT 18, Alkaline Phosphatase 82, Total Creatine Kinase 59, Troponin T High Sens 47 H, Total Protein 5.9, Albumin 2.5 L, Globulin 3.3, Albumin/Globulin Ratio 0.8 L, Triglycerides 186, Cholesterol 65, LDL Cholesterol, Calc 4, VLDL Cholesterol 37, HDL Cholesterol 24 L, Cholesterol/HDL Ratio 2.73, Vitamin B12 1027 H, Serum Folate 9.34, TSH 0.596, Urine Opiates Screen NEGATIVE, U Buprenorphine Qual NEGATIVE, Ur Oxycodone Screen NEGATIVE, Urine Methadone Screen NEGATIVE, Urine Fentanyl Screen NEGATIVE, Ur Barbiturates Screen NEGATIVE, Ur Phencyclidine Scrn NEGATIVE, Ur Amphetamines Screen NEGATIVE, U Benzodiazepines Scrn NEGATIVE, Urine Cocaine Screen NEGATIVE, U Cannabinoids Screen NEGATIVE, Ethyl Alcohol < 10.1 01/04/25 06:55: Troponin T Hi Sens 2 Hr 62 H* Micro: Microbiology 01/04/25 05:30 Mucosa - Nasopharyngeal Respiratory Panel (PCR) - Final 01/03/25 22:21 Urine Catheter - Mac Streptococcus pneumoniae Antigen (M - Final 01/03/25 22:21 Urine Catheter - Mac Legionella Antigen - Final 01/04/25 04:55 Stool Stool Occult Blood (VIDHYA) - Final ABG Data ABG results: ABG 01/03/25 22:21 Specimen Type ART Sample Site L Radial pH 7.39 Bicarbonate Actual 15.8 L Total CO2 17 Base Excess -9 L O2 Saturation 99 O2 % 15.0 ABG pCO2 26.1 L ABG pO2 135 H Bebeto Test Positive O2 Delivery Device NRB Vent Mode Not entered Imaging Radiology Impression Brain CT 01/03/25 22:03 IMPRESSION: No evidence of acute intracranial pathology. Moderate generalized parenchymal volume loss, and patchy hypoattenuation in the supratentorial white matter similar to prior exam; likely a combination of chronic microangiopathic changes and demyelinating disease, with reported history of multiple sclerosis. [place] Location: [facility] Chest X-Ray 01/03/25 22:35 IMPRESSION: Left basilar/retrocardiac consolidation and/or atelectasis. [place] Location: [facility] Chest X-Ray 01/04/25 02:05 IMPRESSION: Successful CVC placement. [place] Location: [place] [id number] Chest/Abdomen/Pelvis CT 01/04/25 02:45 IMPRESSION: Bibasilar airspace disease favoring atelectasis. Possible left-sided urinary tract infection. Possible bilateral ureteral reflux. Cystitis. [place] Location: [facility]- Assessment and Plan . Assessment and plan: ASSESSMENT 1. Altered Mental Status 2. Septic Shock, suspect urinary source 3. Urinary Tract Infection 4. Possible Pneumonia 5. Non-Anion Gap Metabolic Acidosis 6. Hypertension 7. Hyperlipidemia 8. Type II Diabetes Mellitus 9. Multiple Sclerosis/ bedbound state 10. Chronic Anemia PLAN 1. Continue Fluids +Norepinephrine/ Vasopressin to maintain MAP 65 3. Continue Stress dose steroids 4. Same Abx; follow up blood and urine cultures pending; 5. trending troponins 6. Glucose check q4 with ISS 7. DNR; continue dialog with facility and sister (decision maker) [facility] Critical Care Time: 50 minutes The entirety of this encounter was done via Telemedicine Physical Exam Const Negative for alert, oriented x3 or no apparent distress General Appearance: lethargic, ill appearing and frail Orientation / Consciousness: obtunded HEENT head/scalp atraumatic Eyes PERRL and EOMs intact bilaterally Neck full ROM Resp normal respiratory effort Neuro no focal motor deficits Subjective Subjective Events reviewed. She remains poorly responsive and hemodynamically unstable on high dose vasopressors. She reaching with left arm.
[2025-01-04] MEDS: Magnesium Sulfate 2 GM in Dextrose 5%-Water (100mL Bag) 100 ML IV (10:13)
[2025-01-04] MEDS: Potassium Phosphate 30 MM in 0.9% Normal Saline (250mL Bag) 250 ML 55 MM IV (10:14)
[2025-01-04] MEDS: Norepinephrine 8 mg/250 mL 0.9% NS 18.8 MG CONT INF (10:31)
[2025-01-04 11:07] LABS: Troponin T High Sensitivity 43 ng/L (<=14)
--- NOTE | 2025-01-04 11:23 | CASEMGMT ---
Addendum entered by Emilia Lacey 01/04/25 12:06: Social Work SW called [place], they have no updated phone number or address for pt's sister. We actually have POA for pt's sister on the chart, Sandi Johnson, address is [address] in [place]--this was from 2008 however. SW then googled pt' sister, and did find Sandi ramos/the same address listed. There were multiple other phone numbers listed, none of them work however. SW called [place] [employer], was told it's actually [place] [employer], . SW spoke w/the [place] [employer], they are going to go out to the home and ask pt's sister to call SW. SW updated ICU. NASRIN Roberts Original Note: Social Work SW spoke w/pt's RN, pt is not fully alert and oriented at this time. RN tried to call sister, got a full voicemail. [place] also tried to call sister and could not reach her. SW attempted to call pt's sister, one number goes to a voicemail that is full. The other number does not go through at all. SW spoke w/RN again, she was told there was a hospice meeting yesterday but nobody knows the outcome. SW called [facility], spoke w/Lio. She states that there has not been a meeting yet at they cannot get a hold of pt's sister. SW will continue to follow. NASRIN Roberts
[2025-01-04] MEDS: Nystatin/Triamcin Cream Tube 1 APPLIC TOPICAL ×2 (11:55→20:41)
--- NOTE | 2025-01-04 12:53 | CASEMGMT ---
Addendum entered by Emilia Lacey 01/04/25 13:13: Social Work Updates [facility] w/most recent contact information, asked [employer] to let [facility] know if they hear from anyone. NASRIN Roberts Original Note: Social Work SW received a call back from [place] police. Pt's sister and brother in law no longer live at [address] [place] [address] in [place], as documented on the POA document. As per the police, they no longer live there, the new homeowner thinks the pt's sister Sandi and her went into an assisted living. They did give the police a number for the : [phone]. SW called this number, a message cannot be left. SW updated the physician, ICU. SW tried to update [employer], will send a message through [employer]. SW will continue to follow. NASRIN Roberts
[2025-01-04] MEDS: Norepinephrine 8 mg/250 mL 0.9% NS 46.9 MG CONT INF ×2 (17:34→23:23)
[2025-01-04] MEDS: Vancomycin HCl 750 MG in 0.9% Normal Saline (250mL Bag) 250 ML 250 MG IV (17:47)
[2025-01-04 18:49] LABS: Allen Test Positive; Base Excess -19 mmol/L (-2 to +2); PO2 97 mmHG (75-100); SITE R Radial; SO2 97 % (95-99); Time Given 18:46:09
[2025-01-04 19:38] LABS: Salicylate < 0.5 mg/dL (2.8-20.0)
[2025-01-04] MEDS: Sodium Bicarbonate 150 MEQ in Dextrose 5%-Water (1000mL Bag) 1,000 ML 100 MEQ IV (19:53)
[2025-01-04 19:57] LABS: Anion Gap 22 (5-15); BUN 20 mg/dL (4-19); BUN/Creat Ratio 30.1 RATIO (10-20); Calcium,Total 7.1 mg/dL (7.6-11.0); Carbon Dioxide 7.7 mmol/L (21.0-32.0); Chloride 113 mmol/L (98-108); Estimated Creatinine Clearance 62.24 ml/min (50-250); Glucose 242 mg/dL (70-99); Potassium 4.0 mmol/L (3.3-5.1)
[2025-01-04 20:18] LABS: BETA-HYDROXYBUTYRATE 4.9 mmol/L (0.0-0.3)
[2025-01-04] MEDS: Dext 5%-0.45% NS 1,000 ML 150 ML IV (21:35)
[2025-01-04] MEDS: Insulin Lispro 100 UNIT in 0.9% Normal Saline (100mL Bag) 99 ML CONT INF (21:42)
[2025-01-04 22:57] LABS: Magnesium 2.0 mg/dL (1.5-2.2)
[2025-01-04 23:16] LABS: Anion Gap 27 (5-15); BUN 19 mg/dL (4-19); BUN/Creat Ratio 26.2 RATIO (10-20); Calcium,Total 7.7 mg/dL (7.6-11.0); Carbon Dioxide 7.1 mmol/L (21.0-32.0); Chloride 110 mmol/L (98-108); Estimated Creatinine Clearance 62.24 ml/min (50-250); Glucose 279 mg/dL (70-99); Potassium 3.6 mmol/L (3.3-5.1)
[2025-01-05] VITALS (46 sets, daily range): BP systolic 92–124; BP diastolic 50–78; PULSE 68–111; RESP 15–22; TEMP 35.8–36.8; O2SAT 96–100; BMI 22.5
[2025-01-05 02:08] LABS: Magnesium 1.9 mg/dL (1.5-2.2)
[2025-01-05 02:12] LABS: Anion Gap 25 (5-15); Chloride 112 mmol/L (98-108); Potassium 3.4 mmol/L (3.3-5.1)
[2025-01-05 02:19] LABS: Carbon Dioxide 8.6 mmol/L (21.0-32.0)
[2025-01-05] MEDS: Dext 5%-0.45% NS 1,000 ML 150 ML IV ×3 (04:11→19:00)
[2025-01-05] MEDS: Piperacil/Tazobactam 3.375 GM in 0.9% Normal Saline (50mL MB+) 50 ML IV ×3 (05:56→22:14)
[2025-01-05] MEDS: Nystatin/Triamcin Cream Tube 1 APPLIC TOPICAL ×3 (05:57→22:05)
[2025-01-05 05:58] LABS: Allen Test Positive; Base Excess -13 mmol/L (-2 to +2); PO2 97 mmHG (75-100); SITE R Radial; SO2 98 % (95-99)
[2025-01-05] MEDS: Vancomycin HCl 750 MG in 0.9% Normal Saline (250mL Bag) 250 ML 250 MG IV (06:20)
[2025-01-05 06:28] LABS: AST(SGOT) 46 U/L (<=31); Alanine Aminotransfer ALT/SGPT 26 U/L (<=34); Albumin, Serum 2.5 g/dL (3.4-4.8); Alkaline Phosphatase 76 U/L (35-104); Anion Gap 18 (5-15); BUN 16 mg/dL (4-19); BUN/Creat Ratio 20.8 RATIO (10-20); Calcium,Total 7.5 mg/dL (7.6-11.0); Carbon Dioxide 11.5 mmol/L (21.0-32.0); Chloride 112 mmol/L (98-108); Estimated Creatinine Clearance 62.24 ml/min (50-250); Globulin 3.2 g/dL (2.2-4.2); Glucose 195 mg/dL (70-99); Magnesium 1.7 mg/dL (1.5-2.2); Potassium 2.8 mmol/L (3.3-5.1)
[2025-01-05 06:38] LABS: Hematocrit 33.9 % (37-47); Hemoglobin 9.9 g/dL (12.0-15.0); Mean Corp Hgb Conc 29.2 g/dL (32-36); Mean Corpuscular Volume 81.7 fL (81-99); Mean Platelet Vol. 8.0 fl (6.2-12.0); POSITIVE COUNT YES; POSITIVE MORPHOLOGY YES; Platelet Count 240 K/mm3 (150-450); RBC Distribution Width CV 17.2 % (11.6-14.6); RBC Distribution Width SD 50.9 fl (35.1-43.9); Red Blood Count 4.15 M/mm3 (4.2-5.4); White Blood Count 11.2 K/mm3 (4.4-11.0)
[2025-01-05 06:45] LABS: Differential Indicated MANUAL DIFF
--- NOTE | 2025-01-05 07:04 | PN.HOSP_ITS ---
Reason for Visit Chief Complaint: Unresponsive. Subjective Subjective No issues overnight. Patient seems to be more awake at this time. I am currently told she is at baseline alert and oriented x 3. At the time of my evaluation she is oriented to self and can tell me the year but not anything else. Objective Data Objective Data Vital Signs: Vital Signs Temp Pulse Resp BP Pulse Ox O2 Del Method O2 Flow Rate 98.3 F 85 18 107/60 99 Room Air 2 01/05/25 00:00 01/05/25 05:00 01/05/25 05:00 01/05/25 06:15 01/05/25 05:00 01/05/25 05:00 01/03/25 23:45 Oxygen Flow Rate (L/min) 2 Oxygen Delivery Method Room Air Weight: 61.5 kg Body Mass Index (BMI) 22.5 Intake & Output: Intake and Output for Last 24 Hours 01/03/25 01/04/25 01/05/25 23:59 23:59 23:59 Intake Total 1999 5612.70 / 5622.08 1283.99 / 1283.99 Output Total 2125 / 2125 1200 / 1200 Balance 1999 3487.70 / 3497.08 83.99 / 83.99 Lab / Micro Data 01/05/25 06:27 01/05/25 05:42 Labs: Laboratory Results - last 24 hr 01/04/25 04:55: Sodium 142, Potassium 4.1, Chloride 111 H, Carbon Dioxide 10.8 L , Anion Gap 20 H, BUN 28 H, Creatinine 0.72, Estim Creat Clear Calc 62.24, Est GFR (MDRD) Non-Af 93, BUN/Creatinine Ratio 38.6 H, Glucose 163 H, Calcium 8.4, Total Bilirubin < 0.15, AST 33 H, ALT 18, Alkaline Phosphatase 82, Total Creatine Kinase 59, Total Protein 5.9, Albumin 2.5 L, Globulin 3.3, A lbumin/Globulin Ratio 0.8 L, Triglycerides 186, Cholesterol 65, LDL Cholesterol, Calc 4, VLDL Cholesterol 37, HDL Cholesterol 24 L, Cholesterol/HDL Ratio 2.73, Serum Folate 9.34, Ethyl Alcohol < 10.1 01/04/25 06:55: Troponin T Hi Sens 2 Hr 62 H* 01/04/25 09:20: Troponin T Hi Sens 4Hr Cancelled 01/04/25 10:25: Troponin T High Sens 43 H D 01/04/25 18:30: Sodium 143, Potassium 4.0, Chloride 113 H, Carbon Dioxide 7.7 L* , Anion Gap 22 H, BUN 20 H, Creatinine 0.67 L, Estim Creat Clear Calc 62.24, Est GFR (MDRD) Non-Af 96, BUN/Creatinine Ratio 30.1 H, Glucose 242 H, Calcium 7.1 L, b-Hydroxybutyric mmol/L 4.9 H, Salicylates < 0.5 L 01/04/25 22:15: Sodium 143 01/04/25 22:15: Sodium Cancelled, Potassium 3.6 01/04/25 22:15: Potassium Cancelled, Chloride 110 H 01/04/25 22:15: Chloride Cancelled, Carbon Dioxide 7.1 L* 01/04/25 22:15: Carbon Dioxide Cancelled, Anion Gap 27 H 01/04/25 22:15: Anion Gap Cancelled, BUN 19, Creatinine 0.73, Estim Creat Clear Calc 62.24, Est GFR (MDRD) Non-Af 91, BUN/Creatinine Ratio 26.2 H, Glucose 279 H , Calcium 7.7, Phosphorus 4.0, Magnesium 2.0 01/05/25 00:33: POC Glucose 246 H 01/05/25 01:38: POC Glucose 214 H 01/05/25 01:41: Sodium 146 H, Potassium 3.4, Chloride 112 H, Carbon Dioxide 8.6 L*, Anion Gap 25 H, Phosphorus 2.9, Magnesium 1.9 01/05/25 02:40: POC Glucose 229 H 01/05/25 03:37: POC Glucose 220 H 01/05/25 04:37: POC Glucose 200 H 01/05/25 05:37: POC Glucose 189 H 01/05/25 05:42: WBC Cancelled, Corrected WBC Cancelled, RBC Cancelled, Hgb Cancelled, Hct Cancelled, MCV Cancelled, MCH Cancelled, MCHC Cancelled, RDW Std Deviation Cancelled, RDW Coeff of Hung Cancelled, Plt Count Cancelled, MPV Cancelled, Immature Gran % (Auto) Cancelled, Neut % (Auto) Cancelled, Lymph % (Auto) Cancelled, [place] % (Auto) Cancelled, Eos % (Auto) Cancelled, Baso % (Auto) Cancelled, Absolute Neuts (auto) Cancelled, Absolute Lymphs (auto) Cancelled, Total Counted Cancelled, Neutrophils % (Manual) Cancelled, Band Neutrophils % Cancelled, Lymphocytes % (Manual) Cancelled, Monocytes % (Manual) Cancelled, Eosinophils % (Manual) Cancelled, Basophils % (Manual) Cancelled, Metamyelocytes % Cancelled, Myelocytes % Cancelled, Promyelocytes % Cancelled, Blast Cells % Cancelled, Plasma Cell % (Manual) Cancelled, Other Cells % Cancelled, Nucleated RBC % Cancelled, Nucleated RBCs/100 WBC Cancelled, Differential Comment Cancelled, Diff Path Review Cancelled, Hypersegmented Neuts Cancelled, Atypical Lymphocytes Cancelled, Reactive Lymphocytes Cancelled, Smudge Cells Cancelled, Toxic Granulation Cancelled, Toxic Vacuolation Cancelled, Dohle Bodies Cancelled, Elvi Rods Cancelled, Platelet Estimate Cancelled, Plt Morphology Comment Cancelled, RBC Morphology Cancelled 01/05/25 05:42: RBC Morphology Cancelled, Polychromasia Cancelled, Hypochromasia Cancelled, Basophilic Stippling Cancelled, Anisocytosis Cancelled, Microcytosis Cancelled, Macrocytosis Cancelled, Spherocytes Cancelled, Sickle Cells Cancelled, Target Cells Cancelled, Tear Drop Cells Cancelled, Ovalocytes Cancelled, Stomatocytes Cancelled, [place] Bodies Cancelled, Ruben Cells Cancelled, Bite Cells Cancelled, Crenated Cell Cancelled, Acanthocytes (Spur) Cancelled, Rouleaux Cancelled, Schistocytes Cancelled, Sodium 142, Potassium 2.8 L, Chloride 112 H, Carbon Dioxide 11.5 L, Anion Gap 18 H, BUN 16, Creatinine 0.75, Estim Creat Clear Calc 62.24, Est GFR (MDRD) Non-Af 88, BUN/Creatinine Ratio 20.8 H, Glucose 195 H, Calcium 7.5 L, Phosphorus 1.8 L, Magnesium 1.7, Total Bilirubin < 0.15, AST 46 H, ALT 26, Alkaline Phosphatase 76, Total Protein 5.7 L, Albumin 2.5 L, Globulin 3.2, Albumin/Globulin Ratio 0.8 L 01/05/25 06:27: WBC 11.2 H, RBC 4.15 L, Hgb 9.9 L, Hct 33.9 L, MCV 81.7, MCH 23.9 L, MCHC 29.2 L, RDW Std Deviation 50.9 H, RDW Coeff of Hung 17.2 H, Plt Count 240, MPV 8.0, Neut % (Auto) Not Reportable Micro: Microbiology 01/04/25 07:15 Nasal Secretion MRSA (PCR) - Final Meth. resistant Staph. aureus 01/03/25 22:21 Urine Catheter - Mac Urine Culture - Preliminary Gram positive organism 01/04/25 05:30 Mucosa - Nasopharyngeal Respiratory Panel (PCR) - Final 01/03/25 22:21 Urine Catheter - Mac Streptococcus pneumoniae Antigen (M - Final 01/03/25 22:21 Urine Catheter - Mac Legionella Antigen - Final 01/04/25 04:55 Stool Stool Occult Blood (VIDHYA) - Final ABG Data ABG results: ABG 01/04/25 01/05/25 18:43 05:55 Specimen Type ART ART Sample Site R Radial R Radial pH 7.27 L 7.38 Bicarbonate Actual 8.4 L 11.8 L Total CO2 9 12 Base Excess -19 L -13 L O2 Saturation 97 98 ABG pCO2 18.1 L* 19.8 L ABG pO2 97 97 Bebeto Test Positive Positive O2 Delivery Device Room Air Room Air Vent Mode Not entered Not entered Crit Call To/Read Back Yes Blood Gas Notified Whom gisselle jeffers Blood Gas Notified Time 18:46:09 Radiography Diagnostic Testing: Radiology Impression Chest X-Ray 01/04/25 04:05 IMPRESSION: Retrocardiac opacifications in the left lung base likely atelectasis or early infiltrate. Follow-up recommended to ensure resolution [place] Location: [id number] Physical Exam Const alert, no apparent distress and average body habitus; Negative for oriented x3, healthy appearing or well nourished Constitutional Narrative: Upper middle-aged, white female, lying in bed, sleeping but is now somewhat arousable, answers to name and can tell me is 2024 but confused on her current location and month, appears markedly chronically ill and acutely ill Orientation / Consciousness: confused HEENT normocephalic, head/scalp atraumatic and hearing grossly normal bilaterally HEENT Narrative: Mucous membranes are markedly dry, gums are intermittently bleeding Eyes PERRL and conjunctivae normal Eyes Narrative: No scleral icterus Neck supple Neck Narrative: Neck veins are flat, trachea midline Resp normal respiratory effort, no retractions, no use of accessory muscles and clear to auscultation bilaterally Resp Narrative: Diminished but clear Auscultation: Negative for rales, rhonchi or wheezes Cardio regular rate, regular rhythm, S1 normal heart sound, S2 normal heart sound, no murmurs, no rub, no gallops and no clicks GI normal to inspection, nondistended, normoactive bowel sounds, soft to palpation and non-tender Extremity Extremity Narrative: Trace to 1+ bilateral lower extremity pitting edema, pedal pulses and radial pulses are 2+, markedly decreased lean muscle mass, no clubbing or cyanosis Skin Skin Narrative: Significant perineal erythema,, bilateral buttocks erythema Neuro No oriented x3 Neuro Narrative: Still lethargic but improved, is able to stay awake more and follow commands, speech is somewhat delayed but intelligible Sensorium / Orientation: awake, alert and oriented to person Psych Psych Narrative: Affect is flat Assessment & Plan Assessment/Plan (1) Septic shock: (2) Toxic metabolic encephalopathy: (3) Acute UTI: (4) Multiple sclerosis: (5) Leukocytosis: (6) Anemia: (7) Metabolic acidosis: (8) Elevated troponin: (9) Left lower lobe pulmonary infiltrate: (10) Hypophosphatemia: (11) Diabetic ketoacidosis associated with type 2 diabetes mellitus: PLAN: Plan Septic shock secondary to complicated UTI/+-left lower lobe pneumonia -Suspect predominantly based on complicated UTI with potential aspiration -Patient was on Levophed and vasopressin `-Vasopressin has been off since midnight -Levophed is currently at 10 -Add midodrine 10 mg - Keep MAP greater than 65 - Continue broad-spectrum antibiotics - MRSA PCR is positive - Preliminary urine is positive for gram-positive organisms - Continue bank Zosyn and azithromycin and will likely be able to discontinue azithromycin tomorrow - Will check ABG as she appears to have metabolic acidosis if we can improve her acid-base status pressures may work better and we can wean Diabetic ketoacidosis - Patient was markedly acidotic yesterday - Beta hydroxybutyrate was elevated at 4.9 - Insulin drip initiated along with DKA protocol - Continue insulin drip until gap is closed x 2 and then will recheck beta hydroxybutyrate if negative will start subcu insulin - Improvement of acidosis has helped pressor weaning Toxic/metabolic encephalopathy -Resolving with improving acid-base balance and treatment of underlying infection Leukocytosis -Continues to trend down Anion gap metabolic acidosis secondary to DKA - Lactate is normal - Salicylate level is negative - Alcohol level is normal - Patient is not on iron supplementation, uremic and methanol and polyethylene glycol as well as Singh hide are unlikely - Beta hydroxybutyrate was positive - Resolving with treatment of DKA Elevated troponin - Initial troponin elevated with downtrend since then - Suspect secondary to subendocardial ischemia due to demand with sepsis - No further workup at this time Hypokalemia/hypophosphatemia - Potassium is low at 2.8 - 45 mmol K-Phos bolus - 40 mill equivalent potassium chloride bolus - Magnesium levels within normal limits - Recheck lab serially per DKA protocol Thrombocytosis - Likely acute phase reactant -Now resolved Essential hypertension/hyperlipidemia -Continue to hold atenolol -Continue to hold atorvastatin -Hold fenofibrate DM-2 - Currently in DKA and on insulin drip - Once DKA resolves we will transition to subcu insulin - On Trulicity as an outpatient-will hold while inpatient - SSI - Accu-Cheks as ordered - A1c was 6.9 with current therapy - Will check beta hydroxybutyrate with anion gap elevation and acidosis being present Documented history of chronic hypoxic respiratory failure - Patient is stable on room air - Unclear if this is an accurate diagnosis or not - Will continue to monitor History of multiple sclerosis - Patient with chronic debility and significant functional decline and disability - Overall seems would be appropriate for hospice - Will try to get in contact with decision makers and discuss further if possible -case management is assisting in this Depression/anxiety - Hold home oral agents until mental status improves DVT prophylaxis -Continue Lovenox subcu daily CODE STATUS - DNR CCA with no intubation Charges/Coding Visit Charges Inpatient E&M: 40498 [facility] L3
[2025-01-05 07:39] LABS: Neutrophil-Segmented 90 % (47-70); Total Cells Counted 100 (MANUAL DIFF)
[2025-01-05 07:40] LABS: Red Cell Morphology NORM C+C NORMAL (NORM C&C)
[2025-01-05] MEDS: Norepinephrine 8 mg/250 mL 0.9% NS 18.8 MG CONT INF (08:18)
[2025-01-05] MEDS: Potassium Chloride 20mEq/100mL 20 MEQ/100 ML IV.SOLN. 50 MEQ IV BOLUS ×2 (09:28→11:38)
[2025-01-05 10:54] LABS: Magnesium 1.6 mg/dL (1.5-2.2)
[2025-01-05 10:55] LABS: Anion Gap 16 (5-15); BUN 13 mg/dL (4-19); BUN/Creat Ratio 23.0 RATIO (10-20); Calcium,Total 6.7 mg/dL (7.6-11.0); Carbon Dioxide 12.7 mmol/L (21.0-32.0); Chloride 112 mmol/L (98-108); Estimated Creatinine Clearance 62.24 ml/min (50-250); Glucose 131 mg/dL (70-99); Potassium 3.4 mmol/L (3.3-5.1)
[2025-01-05] MEDS: Potassium Phosphate 45 MM in 0.9% Normal Saline (500mL Bag) 500 ML 85 MM IV (11:00)
[2025-01-05] MEDS: Pantoprazole Sodium 40 MG in 0.9% Normal Saline (100mL MB+) 100 ML 300 MG IV ×2 (11:05→22:14)
--- NOTE | 2025-01-05 12:36 | PCM.PN.TICU ---
Objective Data Objective Data Vital Signs: Vital Signs Last response Temperature 35.8 C L 01/05/25 09:00 Temperature Source Core 01/05/25 09:00 Pulse Rate 91 01/05/25 11:00 Respiratory Rate 15 01/05/25 09:00 Respiratory Effort Normal 01/05/25 08:00 Respiratory Depth Normal 01/05/25 08:00 Respiratory Pattern Normal 01/05/25 08:00 Blood Pressure 109/60 01/05/25 09:00 Blood Pressure Mean 76 01/05/25 09:00 Blood Pressure Source Monitor 01/05/25 09:00 Blood Pressure Position Semi-Fowlers 01/05/25 07:00 Blood Pressure Location Left Arm 01/05/25 07:00 Pulse Ox 97 01/05/25 09:00 Oxygen Delivery Method Room Air 01/05/25 09:00 Oxygen Flow Rate (L/min) 2 01/05/25 07:00 I&O: I&O Last 24 Hours 01/04/25 01/05/25 01/05/25 23:59 11:59 23:59 Intake Total 3428.91 / 5622.08 2452.29 / 2452.29 Output Total 1150 / 2125 2200 / 2200 Balance 2278.91 / 3497.08 252.29 / 252.29 I&O: Total Stay 01/03/25 21:54 thru 01/05/25 11:55 Intake Total 48972.99 Output Total 4325 Balance 5739.99 Current Meds Ordered / Administered: Current meds ordered / Administered Generic Name Dose Route Start Last Admin Trade Name Freq PRN Reason Stop Dose Admin Acetaminophen 650 mg 01/04/25 03:45 01/04/25 11:58 Acetaminophen 650 Mg Suppository RC 650 mg Q6H PRN PRN Administration Pain 1-10 or Fever Ascorbic Acid 1,000 mg 01/05/25 17:00 Ascorbic Acid 500 Mg Tablet PO BIDCM PEGGY Enoxaparin Sodium 40 mg 01/04/25 10:00 01/05/25 12:05 Enoxaparin 40 Mg/0.4 Ml Syringe SC 40 mg DAILY PEGGY Administration Glucagon 1 mg 01/04/25 20:44 Glucagon 1 Mg/Ml Syringe IM X1 PRN Hypoglycemia Protocol Hydrocortisone Sodium Succinate 50 mg 01/04/25 12:00 01/05/25 12:03 Hydrocortisone Sod Succinate 100 Mg/2 Ml Vial IV 50 mg Q6 PEGGY Administration Pantoprazole Sodium 40 mg/ 100 mls @ 300 mls/hr 01/04/25 03:45 01/04/25 21:28 Sodium Chloride IV Infused Q12 PEGGY Infusion Sodium Chloride 250 mls @ 15 mls/hr 01/04/25 03:55 01/04/25 19:00 IV 0 mls/hr .[id number] PRN Infusion Saline Flush Sodium Chloride 250 mls @ 15 mls/hr 01/04/25 03:55 IV .[id number] PRN Additional IVPB Infusion Vancomycin IV-PHARMACY TO DOSE 500 mls @ 250 mls/hr 01/04/25 05:43 1 each/ Sodium Chloride IV PRN PRN Rx to Dose Protocol Piperacillin Sod/Tazobactam 50 mls @ 12.5 mls/hr 01/04/25 06:00 01/05/25 05:56 Sod 3.375 gm/ Sodium Chloride IV 12.5 mls/hr Q8 PEGGY Administration Vasopressin 20 units/ Sodium 25 mls @ 3 mls/hr 01/04/25 06:15 01/05/25 00:30 Chloride CONT INF 0 units/min .[id number] PEGGY 0 mls/hr Infusion 0.04 UNITS/MIN Vancomycin HCl 750 mg/ Sodium 265 mls @ 250 mls/hr 01/04/25 18:30 01/05/25 06:20 Chloride IV 250 mls/hr Q12H PEGGY Administration Norepinephrine Bitartrate 8 mg 250 mls @ 18.75 mls/hr 01/04/25 11:00 01/05/25 09:00 / Sodium Chloride CONT INF 10 mcg/min .[id number] PEGGY 18.8 mls/hr Titration Protocol 10 MCG/MIN Dextrose/Sodium Chloride 1,000 mls @ 150 mls/hr 01/04/25 20:44 01/05/25 10:53 IV 150 mls/hr .Q6H40M PRN Administration Blood Glucose < 250mg/dL Insulin Human Lispro 100 unit/ 100 mls @ 0 mls/hr 01/04/25 20:45 01/05/25 11:55 Sodium Chloride CONT INF 2.7 mls/hr .Q0M PEGGY 2.7 mls/hr Titration Protocol As Directed Dextrose 250 mls @ 0 mls/hr 01/04/25 20:44 Dextrose 10%-Water IV .Q0M PRN HYPOGLYCEMIA Protocol As Directed Potassium Phosphate 45 mm/ 515 mls @ 85 mls/hr 01/05/25 07:30 01/05/25 11:00 Sodium Chloride IV 01/05/25 13:33 85 mls/hr X1 ONE Administration Midodrine 10 mg 01/05/25 12:00 01/05/25 12:04 Midodrine Hcl 5 Mg Tablet PO Not Given TIDCM [facility] Nystatin/Triamcinolone Acetonide 1 applic 01/04/25 14:00 01/05/25 05:57 Nystatin/Triamcin Cream Tube TOPICAL 1 applic TID PEGGY Administration Protocol Sodium Chloride 10 - 40 ml 01/04/25 03:55 01/04/25 22:17 0.9% Saline Lock 10 Ml Syringe IV 20 ml UD PRN Administration SALINE FLUSH Vancomycin Protocol 1 lab 01/05/25 17:00 Vancomycin Trough/Random Due [facility] 01/05/25 19:00 DAILY [facility] Lab / Micro Data Attestation: I reviewed the patient's lab results. 01/05/25 06:27 01/05/25 10:00 Labs: Laboratory Results - last 24 hr 01/04/25 18:30: Sodium 143, Potassium 4.0, Chloride 113 H, Carbon Dioxide 7.7 L*, Anion Gap 22 H, BUN 20 H, Creatinine 0.67 L, Estim Creat Clear Calc 62.24, Est GFR (MDRD) Non-Af 96, BUN/Creatinine Ratio 30.1 H, Glucose 242 H, Calcium 7.1 L, b-Hydroxybutyric mmol/L 4.9 H, Salicylates < 0.5 L 01/04/25 21:18: POC Glucose 231 H 01/04/25 22:15: Sodium 143 01/04/25 22:15: Sodium Cancelled, Potassium 3.6 01/04/25 22:15: Potassium Cancelled, Chloride 110 H 01/04/25 22:15: Chloride Cancelled, Carbon Dioxide 7.1 L* 01/04/25 22:15: Carbon Dioxide Cancelled, Anion Gap 27 H 01/04/25 22:15: Anion Gap Cancelled, BUN 19, Creatinine 0.73, Estim Creat Clear Calc 62.24, Est GFR (MDRD) Non-Af 91, BUN/Creatinine Ratio 26.2 H, Glucose 279 H, Calcium 7.7, Phosphorus 4.0, Magnesium 2.0 01/04/25 22:44: POC Glucose 250 H 01/04/25 23:28: POC Glucose 251 H 01/05/25 00:33: POC Glucose 246 H 01/05/25 01:38: POC Glucose 214 H 01/05/25 01:41: Sodium 146 H, Potassium 3.4, Chloride 112 H, Carbon Dioxide 8.6 L*, Anion Gap 25 H, Phosphorus 2.9, Magnesium 1.9 01/05/25 02:40: POC Glucose 229 H 01/05/25 03:37: POC Glucose 220 H 01/05/25 04:37: POC Glucose 200 H 01/05/25 05:37: POC Glucose 189 H 01/05/25 05:42: WBC Cancelled, Corrected WBC Cancelled, RBC Cancelled, Hgb Cancelled, Hct Cancelled, MCV Cancelled, MCH Cancelled, MCHC Cancelled, RDW Std Deviation Cancelled, RDW Coeff of Hung Cancelled, Plt Count Cancelled, MPV Cancelled, Immature Gran % (Auto) Cancelled, Neut % (Auto) Cancelled, Lymph % (Auto) Cancelled, Caroline % (Auto) Cancelled, Eos % (Auto) Cancelled, Baso % (Auto) Cancelled, Absolute Neuts (auto) Cancelled, Absolute Lymphs (auto) Cancelled, Total Counted Cancelled, Neutrophils % (Manual) Cancelled, Band Neutrophils % Cancelled, Lymphocytes % (Manual) Cancelled, Monocytes % (Manual) Cancelled, Eosinophils % (Manual) Cancelled, Basophils % (Manual) Cancelled, Metamyelocytes % Cancelled, Myelocytes % Cancelled, Promyelocytes % Cancelled, Blast Cells % Cancelled, Plasma Cell % (Manual) Cancelled, Other Cells % Cancelled, Nucleated RBC % Cancelled, Nucleated RBCs/100 WBC Cancelled, Differential Comment Cancelled, Diff Path Review Cancelled, Hypersegmented Neuts Cancelled, Atypical Lymphocytes Cancelled, Reactive Lymphocytes Cancelled, Smudge Cells Cancelled, Toxic Granulation Cancelled, Toxic Vacuolation Cancelled, Dohle Bodies Cancelled, Elvi Rods Cancelled, Platelet Estimate Cancelled, Plt Morphology Comment Cancelled, RBC Morphology Cancelled 01/05/25 05:42: RBC Morphology Cancelled, Polychromasia Cancelled, Hypochromasia Cancelled, Basophilic Stippling Cancelled, Anisocytosis Cancelled, Microcytosis Cancelled, Macrocytosis Cancelled, Spherocytes Cancelled, Sickle Cells Cancelled, Target Cells Cancelled, Tear Drop Cells Cancelled, Ovalocytes Cancelled, Stomatocytes Cancelled, [place] Bodies Cancelled, [place] Cells Cancelled, Bite Cells Cancelled, Crenated Cell Cancelled, Acanthocytes (Spur) Cancelled, Rouleaux Cancelled, Schistocytes Cancelled, Sodium 142, Potassium 2.8 L, Chloride 112 H, Carbon Dioxide 11.5 L, Anion Gap 18 H, BUN 16, Creatinine 0.75, Estim Creat Clear Calc 62.24, Est GFR (MDRD) Non-Af 88, BUN/Creatinine Ratio 20.8 H, Glucose 195 H, Calcium 7.5 L, Phosphorus 1.8 L, Magnesium 1.7, Total Bilirubin < 0.15, AST 46 H, ALT 26, Alkaline Phosphatase 76, Total Protein 5.7 L, Albumin 2.5 L, Globulin 3.2, Albumin/Globulin Ratio 0.8 L 01/05/25 06:27: WBC 11.2 H, RBC 4.15 L, Hgb 9.9 L, Hct 33.9 L, MCV 81.7, MCH 23.9 L, MCHC 29.2 L, RDW Std Deviation 50.9 H, RDW Coeff of Hung 17.2 H, Plt Count 240, MPV 8.0, Neut % (Auto) Not Reportable, Total Counted 100, Neutrophils % (Manual) 90 H, Lymphocytes % (Manual) 7 L, Monocytes % (Manual) 1, Metamyelocytes % 2 H, Diff Path Review October foll, Platelet Estimate ADEQUATE, RBC Morphology NORM C+C 01/05/25 06:49: POC Glucose 166 H 01/05/25 07:53: POC Glucose 166 H 01/05/25 09:00: POC Glucose 161 H 01/05/25 10:00: Sodium 141, Potassium 3.4, Chloride 112 H, Carbon Dioxide 12.7 L, Anion Gap 16 H, BUN 13, Creatinine 0.57 L, Estim Creat Clear Calc 62.24, Est GFR (MDRD) Non-Af 100, BUN/Creatinine Ratio 23.0 H, Glucose 131 H, Calcium 6.7 L, Phosphorus 1.5 L, Magnesium 1.6 Micro: Microbiology 01/04/25 07:15 Nasal Secretion MRSA (PCR) - Final Meth. resistant Staph. aureus 01/03/25 22:21 Urine Catheter - Mac Urine Culture - Preliminary Gram positive organism 01/04/25 05:30 Mucosa - Nasopharyngeal Respiratory Panel (PCR) - Final ABG Data ABG results: ABG 01/04/25 01/05/25 18:43 05:55 Specimen Type ART ART Sample Site R Radial R Radial pH 7.27 L 7.38 Bicarbonate Actual 8.4 L 11.8 L Total CO2 9 12 Base Excess -19 L -13 L O2 Saturation 97 98 ABG pCO2 18.1 L* 19.8 L ABG pO2 97 97 Bebeto Test Positive Positive O2 Delivery Device Room Air Room Air Vent Mode Not entered Not entered Crit Call To/Read Back Yes Blood Gas Notified Whom gisselle jeffers Blood Gas Notified Time 18:46:09 Assessment and Plan . Assessment and plan: ASSESSMENT 1. Altered Mental Status 2. Septic Shock, suspect urinary source 3. Urinary Tract Infection 4. Possible Pneumonia 5. DKA, new problem 6. Hypertension 7. Hyperlipidemia 8. Type II Diabetes Mellitus 9. Multiple Sclerosis/ bedbound state 10. Chronic Anemia PLAN 1. weaning norepinephrine, maintain MAP 65 3. may need to DC Stress dose steroids given DKA (though glucose not very elevated) 4. follow up blood and urine cultures pending; 5. trending troponins 6. Insulin per DKA protocol 7. DNR; continue dialog with facility and sister (decision maker) [facility] Time: 50 minutes The entirety of this encounter was done via Telemedicine Physical Exam Const General Appearance: lethargic, frail and limp Exam Limitations: altered mental status and behavioral limitations Eyes General Eye: normal appearance of both eyes Neck General: normal visual inspection Resp normal respiratory effort Cardio regular rate Subjective Subjective Looks about the same, biochemicla evidence for DKA noted overnight and started on insulin drip therefore NPO now. She is minimally responsive but indicated some element of thirst per nursing. Levophed weaned from 25 to 10
[2025-01-05 15:02] LABS: Anion Gap 14 (5-15); Carbon Dioxide 13.7 mmol/L (21.0-32.0); Chloride 112 mmol/L (98-108); Magnesium 1.5 mg/dL (1.5-2.2); Potassium 3.1 mmol/L (3.3-5.1)
[2025-01-05] MEDS: Vancomycin Trough/Random Due 1 LAB MC (18:00)
[2025-01-05 18:35] LABS: Anion Gap 15 (5-15); Carbon Dioxide 13.7 mmol/L (21.0-32.0); Chloride 111 mmol/L (98-108); Magnesium 1.4 mg/dL (1.5-2.2); Potassium 3.6 mmol/L (3.3-5.1)
[2025-01-05 19:10] LABS: Vancomycin, Trough Level 21.3 ug/mL (5.0-15.0)
--- NOTE | 2025-01-05 19:18 | PCM.RX.CS ---
Consult Antibiotic Management Pharmacy has been consulted to manage selected antibiotic: Vancomycin Type of Intervention Type of Consult: Follow-up Suspected Infection Suspected Infection: Sepsis Labs Labs: Sodium 140 mmol/L (133-145) 01/05/25 18:00 Potassium 3.6 mmol/L (3.3-5.1) 01/05/25 18:00 Chloride 111 mmol/L (98-108) H 01/05/25 18:00 Carbon Dioxide 13.7 mmol/L (21.0-32.0) L 01/05/25 18:00 Anion Gap 15 (5-15) 01/05/25 18:00 BUN 13 mg/dL (4-19) 01/05/25 10:00 Creatinine 0.57 mg/dL (0.70-1.20) L 01/05/25 10:00 Est GFR (MDRD) Non-Af 100 (>60) 01/05/25 10:00 BUN/Creatinine Ratio 23.0 RATIO (10-20) H 01/05/25 10:00 Glucose 131 mg/dL (70-99) H 01/05/25 10:00 Vancomycin Trough 21.3 ug/mL (5.0-15.0) H 01/05/25 18:00 Microbiology Microbiology: Microbiology 01/03/25 22:21 Urine Catheter - Mac Urine Culture - Preliminary Staphylococcus aureus 01/04/25 07:15 Nasal Secretion MRSA (PCR) - Final Meth. resistant Staph. aureus 01/04/25 05:30 Mucosa - Nasopharyngeal Respiratory Panel (PCR) - Final 01/03/25 22:21 Urine Catheter - Mac Streptococcus pneumoniae Antigen (M - Final 01/03/25 22:21 Urine Catheter - Mac Legionella Antigen - Final 01/04/25 04:55 Stool Stool Occult Blood (VIDHYA) - Final Dosing Weight Weight used for dosin.5 kg Estimated Creatinine Clearance Estimated Creatinine Clearance: 62 Goal Trough Goal Trough: 15-20 mcg/mL Pharmacy Plan for Drug Dosing Pharmacy Plan for Drug Dosing: Vancomycin trough level of 21.3, drawn 11.5hrs post-dose, was above the target range of 15-20. Will suspend current dosing and draw a random vanco level in twelve hours to determine further orders. Pharmacy Service will continue to monitor and adjust dosing as required. Follow-Up Labs Follow-Up Labs: Trough: Vancomycin (random) Date/Time Labs Ordered Labs to be done on [date and time ordered]: 01/06/25 @0600 (random)
[2025-01-05] MEDS: 0.9% Saline Lock 10 ML Syringe IV (22:21)
[2025-01-05 22:57] LABS: Anion Gap 17 (5-15); Carbon Dioxide 13.4 mmol/L (21.0-32.0); Chloride 109 mmol/L (98-108); Magnesium 1.5 mg/dL (1.5-2.2); Potassium 3.1 mmol/L (3.3-5.1)
[2025-01-05] MEDS: Norepinephrine 8 mg/250 mL 0.9% NS 9.4 MG CONT INF (23:36)
[2025-01-06] VITALS (41 sets, daily range): BP systolic 75–118; BP diastolic 46–71; PULSE 80–97; RESP 14–20; TEMP 36.4–36.7; O2SAT 96–100; BMI 22.8
[2025-01-06] MEDS: Dext 5%-0.45% NS 1,000 ML 150 ML IV (01:44)
[2025-01-06 03:07] LABS: Magnesium 1.3 mg/dL (1.5-2.2)
[2025-01-06 03:08] LABS: Anion Gap 16 (5-15); Carbon Dioxide 13.4 mmol/L (21.0-32.0); Chloride 109 mmol/L (98-108); Potassium 2.6 mmol/L (3.3-5.1)
[2025-01-06] MEDS: Insulin Lispro 100 UNIT in 0.9% Normal Saline (100mL Bag) 99 ML CONT INF (03:25)
[2025-01-06] MEDS: Potassium Chloride 20mEq/100mL 20 MEQ/100 ML IV.SOLN. 100 MEQ IV BOLUS ×4 (04:04→07:35)
[2025-01-06] MEDS: Magnesium Sulfate 2 GM in Dextrose 5%-Water (100mL Bag) 100 ML IV (04:09)
[2025-01-06] MEDS: Nystatin/Triamcin Cream Tube 1 APPLIC TOPICAL ×3 (05:57→20:34)
[2025-01-06] MEDS: Piperacil/Tazobactam 3.375 GM in 0.9% Normal Saline (50mL MB+) 50 ML IV (05:58)
[2025-01-06 06:26] LABS: Hematocrit 29.2 % (37-47); Hemoglobin 8.9 g/dL (12.0-15.0); Mean Corp Hgb Conc 30.5 g/dL (32-36); Mean Corpuscular Volume 78.3 fL (81-99); Mean Platelet Vol. 8.3 fl (6.2-12.0); POSITIVE COUNT YES; POSITIVE MORPHOLOGY YES; Platelet Count 214 K/mm3 (150-450); RBC Distribution Width CV 17.3 % (11.6-14.6); RBC Distribution Width SD 49.1 fl (35.1-43.9); Red Blood Count 3.73 M/mm3 (4.2-5.4); White Blood Count 9.3 K/mm3 (4.4-11.0)
--- NOTE | 2025-01-06 06:30 | PN.CC_ITS ---
Assessment & Plan Assessment/Plan (1) Septic shock: PLAN: Plan RECOMMENDATIONS: 1. Continue to wean Levophed to maintain a mean arterial pressure at or above 65 mmHg. 2. Continue antimicrobial therapy. 3. Okay to transition to basal and sliding scale insulin coverage. 4. Continue stress dose steroids. Will begin to wean once the patient has been weaned from vasopressor support. 5. Continue appropriate ICU prophylaxis. IMPRESSIONS: 1. Septic shock Clinical concern for underlying pneumonia versus urinary tract source of infection. Plan to continue supportive care including antimicrobials and vasopressor support to maintain mean arterial pressure at or above 65 mmHg. Continue scheduled midodrine as ordered. 2. Anion gap metabolic acidosis/DKA Resolved at this time. Plan to transition to basal and sliding scale insulin coverage. Given ongoing evidence of nongap metabolic acidosis, workup for RTA is underway. 3. Toxic/metabolic encephalopathy Most likely secondary to #1. Appears to be improving with supportive care including antibiotics. 4. History of hypertension/hyperlipidemia/diabetes mellitus/history of MS/depression/anxiety Complicates care, management, recovery and prognosis. Continue home medications as indicated. TIME: 32 minutes of critical care time, independent of procedures, was spent addressing the patient's septic shock, anion gap metabolic acidosis, review of all data and collaboration with the care team. Subjective Subjective The patient was seen and examined at the bedside this morning. Events from the last 24 hours have been reviewed. The patient remains on Levophed at 4 mcg/min to maintain hemodynamic stability. She is also being maintained on a continuous insulin infusion. White blood cell count is normal. Hemoglobin was noted to be 8.9 g/dL. Platelet count is within normal limits. Creatinine is within normal limits. Beta hydroxybutyrate level was noted to be normal this morning. DKA appears to have resolved. Objective Data Objective Data The patient's most recent lab work, culture data and imaging studies have all been personally reviewed. Vital Signs: Vital Signs Temp Pulse Resp BP Pulse Ox O2 Del Method O2 Flow Rate 97.5 F L 95 16 108/63 97 Room Air 2 01/06/25 05:00 01/06/25 06:00 01/06/25 06:00 01/06/25 06:00 01/06/25 06:00 01/06/25 06:00 01/05/25 07:00 Oxygen Flow Rate (L/min) 2 Oxygen Delivery Method Room Air Weight: 137 lb 9.095 oz Body Mass Index (BMI) 22.8 Intake & Output: Intake and Output for Last 24 Hours 01/04/25 01/05/25 01/06/25 23:59 23:59 23:59 Intake Total 5612.70 / 5622.08 5071.29 / 5075.05 1420.45 / 1420.45 Output Total 2125 / 2125 3925 / 3925 650 / 650 Balance 3487.70 / 3497.08 1146.29 / 1150.05 770.45 / 770.45 Lab / Micro Data Attestation: I reviewed the patient's lab results. 01/06/25 06:15 01/06/25 06:15 Labs: Laboratory Results - last 24 hr 01/04/25 21:18: POC Glucose 231 H 01/04/25 22:44: POC Glucose 250 H 01/04/25 23:28: POC Glucose 251 H 01/05/25 06:27: WBC 11.2 H, RBC 4.15 L, Hgb 9.9 L, Hct 33.9 L, MCV 81.7, MCH 23.9 L, MCHC 29.2 L, RDW Std Deviation 50.9 H, RDW Coeff of Hung 17.2 H, Plt Count 240, MPV 8.0, Neut % (Auto) Not Reportable, Absolute Neuts (auto) 10.1 H, Absolute Lymphs (auto) 0.78 L, Total Counted 100, Neutrophils % (Manual) 90 H, L ymphocytes % (Manual) 7 L, Monocytes % (Manual) 1, Metamyelocytes % 2 H, Diff Path Review October, Platelet Estimate ADEQUATE, RBC Morphology NORM C+C 01/05/25 06:49: POC Glucose 166 H 01/05/25 07:53: POC Glucose 166 H 01/05/25 09:00: POC Glucose 161 H 01/05/25 10:00: Sodium 141, Potassium 3.4, Chloride 112 H, Carbon Dioxide 12.7 L , Anion Gap 16 H, BUN 13, Creatinine 0.57 L, Estim Creat Clear Calc 62.24, Est GFR (MDRD) Non-Af 100, BUN/Creatinine Ratio 23.0 H, Glucose 131 H, Calcium 6.7 L , Phosphorus 1.5 L, Magnesium 1.6 01/05/25 10:13: POC Glucose 134 H 01/05/25 10:56: POC Glucose 116 H 01/05/25 11:50: POC Glucose 94 01/05/25 12:50: POC Glucose 107 H 01/05/25 14:00: POC Glucose 107 H 01/05/25 14:30: Sodium 140, Potassium 3.1 L, Chloride 112 H, Carbon Dioxide 13.7 L, Anion Gap 14, Phosphorus 2.5 L, Magnesium 1.5 01/05/25 15:11: POC Glucose 104 01/05/25 16:04: POC Glucose 103 01/05/25 17:05: POC Glucose 94 01/05/25 18:00: Sodium 140, Potassium 3.6, Chloride 111 H, Carbon Dioxide 13.7 L , Anion Gap 15, Phosphorus 5.4 H, Magnesium 1.4 L, Vancomycin Trough 21.3 H 01/05/25 18:05: POC Glucose 96 01/05/25 19:01: POC Glucose 110 H 01/05/25 19:54: POC Glucose 124 H 01/05/25 21:11: POC Glucose 137 H 01/05/25 22:00: POC Glucose 140 H 01/05/25 22:19: Sodium 139, Potassium 3.1 L, Chloride 109 H, Carbon Dioxide 13.4 L, Anion Gap 17 H, Phosphorus 4.3, Magnesium 1.5 01/05/25 23:16: POC Glucose 147 H 01/05/25 23:56: POC Glucose 140 H 01/06/25 01:05: POC Glucose 157 H 01/06/25 02:01: Sodium 138, Potassium 2.6 L*, Chloride 109 H, Carbon Dioxide 13.4 L, Anion Gap 16 H, Phosphorus 3.7, Magnesium 1.3 L 01/06/25 02:03: POC Glucose 151 H 01/06/25 03:09: POC Glucose 161 H 01/06/25 03:57: POC Glucose 173 H 01/06/25 04:54: POC Glucose 153 H Micro: Microbiology 01/03/25 22:21 Urine Catheter - Mac Urine Culture - Preliminary Staphylococcus aureus 01/04/25 07:15 Nasal Secretion MRSA (PCR) - Final Meth. resistant Staph. aureus 01/04/25 05:30 Mucosa - Nasopharyngeal Respiratory Panel (PCR) - Final 01/03/25 22:21 Urine Catheter - Mac Streptococcus pneumoniae Antigen (M - Final 01/03/25 22:21 Urine Catheter - Mac Legionella Antigen - Final 01/04/25 04:55 Stool Stool Occult Blood (VIDHYA) - Final Physical Exam Const alert and no apparent distress General Appearance: cooperative and ill appearing Positive for chronically HEENT normocephalic and head/scalp atraumatic Eyes PERRL, EOMs intact bilaterally and conjunctivae normal Neck supple General: trachea midline and CVC in place Chest inspection of chest normal Resp normal respiratory effort Auscultation: Negative for rales, rhonchi or wheezes Cardio regular rate and regular rhythm GI normal to inspection, nondistended, normoactive bowel sounds Extremity General Extremity: edema; Negative for clubbing Skin no rashes or lesions noted Neuro CN's II-XII intact bilaterally and no focal motor deficits Psych Mood & Affect: flat affect Charges/Coding Procedures Hospitalists Procedures: [id number] Critical Care 1st Hr
[2025-01-06 06:33] LABS: Differential Indicated MANUAL DIFF
[2025-01-06 06:43] LABS: Magnesium 2.3 mg/dL (1.5-2.2)
[2025-01-06 06:48] LABS: AST(SGOT) 22 U/L (<=31); Alanine Aminotransfer ALT/SGPT 17 U/L (<=34); Albumin, Serum 2.3 g/dL (3.4-4.8); Alkaline Phosphatase 62 U/L (35-104); Anion Gap 15 (5-15); BUN 9 mg/dL (4-19); BUN/Creat Ratio 16.1 RATIO (10-20); Calcium,Total 6.4 mg/dL (7.6-11.0); Carbon Dioxide 13.0 mmol/L (21.0-32.0); Chloride 110 mmol/L (98-108); Estimated Creatinine Clearance 62.24 ml/min (50-250); Globulin 2.5 g/dL (2.2-4.2); Glucose 188 mg/dL (70-99); Potassium 3.5 mmol/L (3.3-5.1)
[2025-01-06 06:49] LABS: Vancomycin, Random Level 15.9 ug/mL (0.0-15.0)
--- NOTE | 2025-01-06 07:07 | PCM.RX.CS ---
Consult Antibiotic Management Pharmacy has been consulted to manage selected antibiotic: Vancomycin Type of Intervention Type of Consult: Follow-up Suspected Infection Suspected Infection: Pneumonia Labs Labs: Sodium 138 mmol/L (133-145) 01/06/25 06:15 Potassium 3.5 mmol/L (3.3-5.1) 01/06/25 06:15 Chloride 110 mmol/L (98-108) H 01/06/25 06:15 Carbon Dioxide 13.0 mmol/L (21.0-32.0) L 01/06/25 06:15 Anion Gap 15 (5-15) 01/06/25 06:15 BUN 9 mg/dL (4-19) 01/06/25 06:15 Creatinine 0.59 mg/dL (0.70-1.20) L 01/06/25 06:15 Est GFR (MDRD) Non-Af 99 (>60) 01/06/25 06:15 BUN/Creatinine Ratio 16.1 RATIO (10-20) 01/06/25 06:15 Glucose 188 mg/dL (70-99) H 01/06/25 06:15 Vancomycin Trough 21.3 ug/mL (5.0-15.0) H 01/05/25 18:00 Random Vancomycin 15.9 ug/mL (0.0-15.0) H 01/06/25 06:15 Microbiology Microbiology: Microbiology 01/03/25 22:21 Urine Catheter - Mac Urine Culture - Preliminary Staphylococcus aureus 01/04/25 07:15 Nasal Secretion MRSA (PCR) - Final Meth. resistant Staph. aureus 01/04/25 05:30 Mucosa - Nasopharyngeal Respiratory Panel (PCR) - Final 01/03/25 22:21 Urine Catheter - Mac Streptococcus pneumoniae Antigen (M - Final 01/03/25 22:21 Urine Catheter - Mac Legionella Antigen - Final 01/04/25 04:55 Stool Stool Occult Blood (VIDHYA) - Final Goal Trough Goal Trough: 15-20 mcg/mL Pharmacy Plan for Drug Dosing Pharmacy Plan for Drug Dosing: VANCOMYCIN LEVEL RECEIVED Current Vancomycin Dose: HELD d/t elevated trough (was previously 750mg IV Q12h) Number of Doses Received: scheduled dosing HELD Vancomycin Level: 15.9 Hours Since Last Dose: 24hr Renal Function: SCr 0.59/ CrCl 62 mL/min Renal Function Trend: stable Lab/Micro: SCx growing MRSA Vancomycin Plan/Comments: Patient had a trough drawn which resulted in a value of 15.9 (goal 15-20). Since trough is now <20, will resume scheduled vancomycin dosing. Will start patient on 1000mg IV Q24hr to start 01/06/25 @0800. Pending Level: 01/08/25 @0730, prior to 3rd dose of new regimen Pharmacy Service will continue to monitor and adjust dosing as required.
[2025-01-06 07:20] LABS: Neutrophil-Segmented 85 % (47-70); Total Cells Counted 100 (MANUAL DIFF)
--- NOTE | 2025-01-06 07:25 | PCM.PN.HOSP ---
Reason for Visit Chief Complaint: Unresponsive. Subjective Subjective Patient much more alert today. Is able to interact and answer questions. Still remains on levo at 4 mcg. Objective Data Objective Data Vital Signs: Vital Signs Temp Pulse Resp BP Pulse Ox O2 Del Method O2 Flow Rate 97.5 F L 91 17 94/65 97 Room Air 2 01/06/25 05:00 01/06/25 07:00 01/06/25 07:00 01/06/25 07:00 01/06/25 07:00 01/06/25 07:00 01/05/25 07:00 Oxygen Flow Rate (L/min) 2 Oxygen Delivery Method Room Air Weight: 62.4 kg Body Mass Index (BMI) 22.8 Intake & Output: Intake and Output for Last 24 Hours 01/04/25 01/05/25 01/06/25 23:59 23:59 23:59 Intake Total 5612.70 / 5622.08 5071.29 / 5075.05 1427.95 / 1427.95 Output Total 2125 / 2125 3925 / 3925 650 / 650 Balance 3487.70 / 3497.08 1146.29 / 1150.05 777.95 / 777.95 Lab / Micro Data 01/06/25 06:15 01/06/25 06:15 Labs: Laboratory Results - last 24 hr 01/04/25 21:18: POC Glucose 231 H 01/04/25 22:44: POC Glucose 250 H 01/04/25 23:28: POC Glucose 251 H 01/05/25 06:27: WBC 11.2 H, RBC 4.15 L, Hgb 9.9 L, Hct 33.9 L, MCV 81.7, MCH 23.9 L, MCHC 29.2 L, RDW Std Deviation 50.9 H, RDW Coeff of Hung 17.2 H, Plt Count 240, MPV 8.0, Absolute Neuts (auto) 10.1 H, Absolute Lymphs (auto) 0.78 L, Total Counted 100, Neutrophils % (Manual) 90 H, Lymphocytes % (Manual) 7 L, Monocytes % (Manual) 1, Metamyelocytes % 2 H, Diff Path Review October, Platelet Estimate ADEQUATE, RBC Morphology NORM C+C 01/05/25 06:49: POC Glucose 166 H 01/05/25 07:53: POC Glucose 166 H 01/05/25 09:00: POC Glucose 161 H 01/05/25 10:00: Sodium 141, Potassium 3.4, Chloride 112 H, Carbon Dioxide 12.7 L, Anion Gap 16 H, BUN 13, Creatinine 0.57 L, Estim Creat Clear Calc 62.24, Est GFR (MDRD) Non-Af 100, BUN/Creatinine Ratio 23.0 H, Glucose 131 H, Calcium 6.7 L, Phosphorus 1.5 L, Magnesium 1.6 01/05/25 10:13: POC Glucose 134 H 01/05/25 10:56: POC Glucose 116 H 01/05/25 11:50: POC Glucose 94 01/05/25 12:50: POC Glucose 107 H 01/05/25 14:00: POC Glucose 107 H 01/05/25 14:30: Sodium 140, Potassium 3.1 L, Chloride 112 H, Carbon Dioxide 13.7 L, Anion Gap 14, Phosphorus 2.5 L, Magnesium 1.5 01/05/25 15:11: POC Glucose 104 01/05/25 16:04: POC Glucose 103 01/05/25 17:05: POC Glucose 94 01/05/25 18:00: Sodium 140, Potassium 3.6, Chloride 111 H, Carbon Dioxide 13.7 L, Anion Gap 15, Phosphorus 5.4 H, Magnesium 1.4 L, Vancomycin Trough 21.3 H 01/05/25 18:05: POC Glucose 96 01/05/25 19:01: POC Glucose 110 H 01/05/25 19:54: POC Glucose 124 H 01/05/25 21:11: POC Glucose 137 H 01/05/25 22:00: POC Glucose 140 H 01/05/25 22:19: Sodium 139, Potassium 3.1 L, Chloride 109 H, Carbon Dioxide 13.4 L, Anion Gap 17 H, Phosphorus 4.3, Magnesium 1.5 01/05/25 23:16: POC Glucose 147 H 01/05/25 23:56: POC Glucose 140 H 01/06/25 01:05: POC Glucose 157 H 01/06/25 02:01: Sodium 138, Potassium 2.6 L*, Chloride 109 H, Carbon Dioxide 13.4 L, Anion Gap 16 H, Phosphorus 3.7, Magnesium 1.3 L 01/06/25 02:03: POC Glucose 151 H 01/06/25 03:09: POC Glucose 161 H 01/06/25 03:57: POC Glucose 173 H 01/06/25 04:54: POC Glucose 153 H 01/06/25 05:55: POC Glucose 176 H 01/06/25 06:15: WBC 9.3, RBC 3.73 L, Hgb 8.9 L, Hct 29.2 L, MCV 78.3 L, MCH 23.9 L, MCHC 30.5 L, RDW Std Deviation 49.1 H, RDW Coeff of Hung 17.3 H, Plt Count 214, MPV 8.3, Neut % (Auto) Not Reportable, Absolute Neuts (auto) 7.9 H, Absolute Lymphs (auto) 0.65 L, Total Counted 100, Neutrophils % (Manual) 85 H, Lymphocytes % (Manual) 7 L, Monocytes % (Manual) 3, Metamyelocytes % 2 H, Myelocytes % 3 H, Platelet Estimate ADEG, Sodium 138, Potassium 3.5, Chloride 110 H, Carbon Dioxide 13.0 L, Anion Gap 15, BUN 9, Creatinine 0.59 L, Estim Creat Clear Calc 62.24, Est GFR (MDRD) Non-Af 99, BUN/Creatinine Ratio 16.1, Glucose 188 H, Calcium 6.4 L*, Phosphorus 3.2, Magnesium 2.3 H, Total Bilirubin < 0.15, AST 22, ALT 17, Alkaline Phosphatase 62, Total Protein 4.8 L, Albumin 2.3 L, Globulin 2.5, Albumin/Globulin Ratio 0.9, Random Vancomycin 15.9 H 01/06/25 06:51: POC Glucose 215 H Micro: Microbiology 01/03/25 22:21 Urine Catheter - Mac Urine Culture - Preliminary Staphylococcus aureus 01/04/25 07:15 Nasal Secretion MRSA (PCR) - Final Meth. resistant Staph. aureus 01/04/25 05:30 Mucosa - Nasopharyngeal Respiratory Panel (PCR) - Final 01/03/25 22:21 Urine Catheter - Mac Streptococcus pneumoniae Antigen (M - Final 01/03/25 22:21 Urine Catheter - Mac Legionella Antigen - Final 01/04/25 04:55 Stool Stool Occult Blood (VIDHYA) - Final Physical Exam Const alert, no apparent distress and average body habitus; Negative for oriented x3, healthy appearing or well nourished Constitutional Narrative: Upper middle-aged, white female, sitting up in bed, getting ready to eat breakfast, nursing attendant at bedside, is oriented to self, place, and month but not year currently HEENT normocephalic, head/scalp atraumatic and hearing grossly normal bilaterally HEENT Narrative: Mucous membranes still remain slightly dry Resp normal respiratory effort, no retractions, no use of accessory muscles and clear to auscultation bilaterally Resp Narrative: Diminished but clear Auscultation: Negative for rales, rhonchi or wheezes Cardio regular rate, regular rhythm, S1 normal heart sound, S2 normal heart sound, no murmurs, no rub, no gallops and no clicks GI normal to inspection, nondistended, normoactive bowel sounds, soft to palpation and non-tender Extremity no clubbing, cyanosis or edema Extremity Narrative: Trace to 1+ bilateral lower extremity pitting edema, pedal pulses and radial pulses are 2+, markedly decreased lean muscle mass, no clubbing or cyanosis Neuro Neuro Narrative: Speech is way more intelligible but still slightly delayed Sensorium / Orientation: awake, alert, oriented to person and oriented to place; Negative for oriented to time Psych Psych Narrative: Affect is flat, mood seems depressed Assessment & Plan Assessment/Plan (1) Septic shock: (2) Toxic metabolic encephalopathy: (3) Acute UTI: (4) Multiple sclerosis: (5) Leukocytosis: (6) Anemia: (7) Metabolic acidosis: (8) Elevated troponin: (9) Left lower lobe pulmonary infiltrate: (10) Hypophosphatemia: (11) Diabetic ketoacidosis associated with type 2 diabetes mellitus: PLAN: Plan Septic shock secondary to complicated MRSA UTI/+-left lower lobe pneumonia -Suspect predominantly based on complicated UTI with potential aspiration -Patient was on Levophed and vasopressin -Levophed is currently at 4 - Continue midodrine 10 mg - Keep MAP greater than 65 -Wean stress dose steroids starting tomorrow if off Levophed -Continue vancomycin - MRSA PCR is positive - Preliminary urine is positive for gram-positive organisms - Continue bank Zosyn and azithromycin and will likely be able to discontinue azithromycin tomorrow - Will check ABG as she appears to have metabolic acidosis if we can improve her acid-base status pressures may work better and we can wean - Speech therapy consultation for swallow eval Diabetic ketoacidosis - Resolved - Beta hydroxybutyrate was 4.9 and now down to 0.1 - Will transition off insulin drip to subcu insulin - Will need to titrate insulin once steroids are weaned Toxic/metabolic encephalopathy - Resolved Leukocytosis - Normalized Anion gap metabolic acidosis secondary to DKA - Resolved Non-anion gap metabolic acidosis - Suspect multifactorial with elevated chloride - DKA is resolved and gap is closed - Workup for RTA is in progress - Oral bicarb 4 times daily started after urine studies were obtained Elevated troponin - Initial troponin elevated with downtrend since then - Suspect secondary to subendocardial ischemia due to demand with sepsis - No further workup at this time Hypokalemia/hypophosphatemia - Resolved - Recheck in a.m. Hypocalcemia - Calcium is 9 when corrected for albumin Thrombocytosis - Resolved Anemia - Significant trend down - Will check iron studies with downtrend - No signs of active bleeding Essential hypertension/hyperlipidemia -Continue to hold atenolol -Continue to hold atorvastatin -Hold fenofibrate DM-2 - DKA has resolved - Will start Lantus 15 units - SSI - Will have to monitor closely with stress dose steroids and decreased insulin once steroids are weaned Documented history of chronic hypoxic respiratory failure - Patient is stable on room air - Unclear if this is an accurate diagnosis or not - Will continue to monitor History of multiple sclerosis - Patient with chronic debility and significant functional decline and disability - Overall seems would be appropriate for hospice - Will try to get in contact with decision makers and discuss further if possible -case management is assisting in this Depression/anxiety - Continue to hold oral medications today until speech therapy evaluates patient DVT prophylaxis -Continue Lovenox subcu daily CODE STATUS - DNR CCA with no intubation Charges/Coding Visit Charges Inpatient E&M: 01147 Subs Hosp L2
[2025-01-06 07:39] LABS: Allen Test Positive; Base Excess -10 mmol/L (-2 to +2); PO2 88 mmHG (75-100); SITE R Radial; SO2 97 % (95-99)
[2025-01-06 08:13] LABS: BETA-HYDROXYBUTYRATE 0.1 mmol/L (0.0-0.3); Ferritin 1155 ng/mL (22-378)
[2025-01-06 08:32] LABS: Iron 69 ug/dL (50-170); Iron Binding Capacity,Unsat 84 ug/dL (228-428)
[2025-01-06] MEDS: Vancomycin HCl 1,000 MG in 0.9% Normal Saline (250mL Bag) 250 ML 250 MG IV (08:35)
[2025-01-06 08:41] LABS: Iron Binding Capacity,Total 153 ug/dL (250-450)
[2025-01-06 08:52] LABS: Immature Reticulocyte Fraction 17.60 % (3.00-15.90); Platelet Count 243 K/mm3 (150-450); Reticulocyte Count 1.15 % (0.5-1.5)
--- NOTE | 2025-01-06 08:58 | CASEMGMT ---
Addendum entered by Emilia Lacey 01/06/25 09:19: Social Work SW did reach out to [facility] and let them know the sister was reached, if a hospice referral is needed we will reach out to the sister. NASRIN Roberts Original Note: Social Work SW reviewed the old chart, no other numbers are listed for pt. SW called Dr. Ruiz's office to see if there are any other contact numbers. Message left. SW then called pt's brother in law, , he answered, and put pt's sister on the phone. SW spoke then w/pt's sister and EARL Johnson. She was unaware pt was in the hospital. SW explained that the hospital ICU, [facility] and SW tried to reach pt at least 20 times. SW asked her to please set up or clean out her voicemail so messages can be left. She asked for an update on pt, SW gave her a general update and explained will have RN call her. EUSEBIA verified her cell number that we do have the accurate number: [phone]. EUSEBIA called RN in ICU and asked her to call pt's sister Sandi at the cell number listed on the chart. EUSEBIA will continue to follow. NASRIN Roberts
[2025-01-06] MEDS: Insulin Glargine-YFGN 100 UNIT/ML Pen 15 UNIT SC (09:02)
[2025-01-06] MEDS: Pantoprazole Sodium 40 MG in 0.9% Normal Saline (100mL MB+) 100 ML 300 MG IV (09:59)
[2025-01-06] MEDS: Calcium Gluconate IV 2 GM in 0.9% Normal Saline (100mL Bag) 100 ML IV (10:26)
--- NOTE | 2025-01-06 10:56 | CASEMGMT ---
Social Work SW spoke w/physician, she is on board w/a hospice referral should family be agreeable. As per [facility], they spoke w/pt's sister recently and she was in agreement with this. SW called pt's sister at the number she verified w/SW, it rings twice and goes to a full voicemail. SW called the of pt's sister, his phone also went to a voicemail where a message could not be left. SW called RN to see if she was able to reach pt's sister. She has not had a chance to call. There is a friend in the room, SW will speak w/the friend and see if she has any information on pt's sister's new address. NASRIN Roberts
[2025-01-06 13:28] LABS: Hemoglobin 9.4 g/dL (12.0-15.0)
--- NOTE | 2025-01-06 13:30 | CASEMGMT ---
Addendum entered by Emilia Lacey 01/06/25 15:59: Social Work SW attempted again to call pt's sister and brother in law, still cannot leave a message on either voicemail. NASRIN Roberts Addendum entered by Emilia Lacey 01/06/25 14:58: Social Work Message sent to pt's sister and brother in law through [employer] to call SW. NASRIN Roberts Original Note: Social Work Pt's friend Priscilla was visiting earlier. SW spoke w/Priscilla in the room, and she does not know pt's sister's new address. She did tell SW the 's name is Elías. Pt able to answer some questions but does not know where pt's sister moved to. SW tried again to call pt's sister and Elías this afternoon, the calls are again going to voicemail and SW cannot leave messaged. NASRIN Roberts
[2025-01-06 19:16] LABS: Anion Gap 14 (5-15); BUN 12 mg/dL (4-19); BUN/Creat Ratio 18.3 RATIO (10-20); Calcium,Total 7.3 mg/dL (7.6-11.0); Carbon Dioxide 14.4 mmol/L (21.0-32.0); Chloride 110 mmol/L (98-108); Estimated Creatinine Clearance 62.24 ml/min (50-250); Glucose 163 mg/dL (70-99); Potassium 3.5 mmol/L (3.3-5.1)
[2025-01-07] VITALS (12 sets, daily range): BP systolic 92–102; BP diastolic 48–58; PULSE 82–103; RESP 13–21; TEMP 36.3–36.6; O2SAT 97–100; BMI 23.6
[2025-01-07] MEDS: 0.9% Saline Lock 10 ML Syringe IV (05:09)
[2025-01-07] MEDS: Nystatin/Triamcin Cream Tube 1 APPLIC TOPICAL ×2 (05:09→21:17)
[2025-01-07 05:25] LABS: Hematocrit 30.3 % (37-47); Hemoglobin 9.4 g/dL (12.0-15.0); Mean Corp Hgb Conc 31.0 g/dL (32-36); Mean Corpuscular Volume 77.7 fL (81-99); Mean Platelet Vol. 8.9 fl (6.2-12.0); POSITIVE COUNT YES; POSITIVE DIFFERENTIAL YES; POSITIVE MORPHOLOGY YES; Platelet Count 198 K/mm3 (150-450); RBC Distribution Width CV 17.5 % (11.6-14.6); RBC Distribution Width SD 49.2 fl (35.1-43.9); Red Blood Count 3.90 M/mm3 (4.2-5.4); White Blood Count 5.9 K/mm3 (4.4-11.0)
[2025-01-07 05:36] LABS: Differential Indicated MANUAL DIFF
[2025-01-07 06:09] LABS: Anion Gap 15 (5-15); BUN 15 mg/dL (4-19); BUN/Creat Ratio 21.2 RATIO (10-20); Calcium,Total 7.6 mg/dL (7.6-11.0); Carbon Dioxide 15.5 mmol/L (21.0-32.0); Chloride 109 mmol/L (98-108); Estimated Creatinine Clearance 62.24 ml/min (50-250); Glucose 121 mg/dL (70-99); Potassium 3.2 mmol/L (3.3-5.1)
--- NOTE | 2025-01-07 06:39 | PN.CC_ITS ---
Assessment & Plan Assessment/Plan (1) Septic shock: PLAN: Plan RECOMMENDATIONS: 1. Continue antimicrobial therapy to complete 7 days of therapy. 2. Continue basal and sliding scale insulin coverage. 3. Wean stress dose steroids to twice daily, with plans to discontinue tomorrow, if the patient remains hemodynamically stable. 4. Continue appropriate ICU prophylaxis. 5. The patient is medically stable for transfer out of the intensive care unit. Will sign off from a critical care perspective. IMPRESSIONS: 1. Septic shock Clinical concern for underlying pneumonia versus urinary tract source of infection. The patient has been weaned from vasopressor support but will be continued on scheduled midodrine as ordered. Antibiotics will be continued to complete 7 days of therapy. Stress dose steroids will be weaned today with tentative plans to discontinue tomorrow. 2. Anion gap metabolic acidosis/DKA Resolved at this time. Continue basal and sliding scale insulin coverage. Given ongoing evidence of nongap metabolic acidosis, workup for RTA is underway. Continue sodium bicarbonate by mouth as scheduled. 3. Toxic/metabolic encephalopathy Most likely secondary to #1. Appears to be improving with supportive care including antibiotics. 4. History of hypertension/hyperlipidemia/diabetes mellitus/history of MS/depression/anxiety Complicates care, management, recovery and prognosis. Continue home medications as indicated. This note was generated with [employer] dictation software. It may contain incorrect words, spelling, and punctuation that were not noted in checking the note before signing. Subjective Subjective The patient was seen and examined at the bedside this morning. Events from the last 24 hours have been reviewed. The patient was able to be weaned off of Levophed successfully yesterday afternoon. White blood cell count is normal. Hemoglobin and platelet count are stable. Potassium is low at 3.2 with a bicarbonate of 15.5, anion gap of 15 and creatinine of 0.71. The patient's only complaint this morning was for that of being cold. Objective Data Objective Data The patient's most recent lab work, culture data and imaging studies have all been personally reviewed. Vital Signs: Vital Signs Temp Pulse Resp BP Pulse Ox O2 Del Method O2 Flow Rate 97.6 F L 91 17 92/57 L 100 Room Air 2 01/07/25 05:00 01/07/25 06:00 01/07/25 06:00 01/07/25 06:00 01/07/25 06:00 01/07/25 06:00 01/05/25 07:00 Oxygen Flow Rate (L/min) 2 Oxygen Delivery Method Room Air Weight: 141 lb 12.116 oz Body Mass Index (BMI) 23.6 Intake & Output: Intake and Output for Last 24 Hours 01/05/25 01/06/25 01/07/25 23:59 23:59 23:59 Intake Total 5071.29 / 5075.05 3807.87 / 3807.87 Output Total 3925 / 3925 1505 / 1805 450 / 450 Balance 1146.29 / 1150.05 2302.87 / 2002.87 -450 / -450 Lab / Micro Data Attestation: I reviewed the patient's lab results. 01/07/25 05:10 01/07/25 05:10 Labs: Laboratory Results - last 24 hr 01/06/25 05:55: POC Glucose 176 H 01/06/25 06:15: Absolute Neuts (auto) 7.9 H, Absolute Lymphs (auto) 0.65 L, Total Counted 100, Neutrophils % (Manual) 85 H, Lymphocytes % (Manual) 7 L, Monocytes % (Manual) 3, Metamyelocytes % 2 H, Myelocytes % 3 H, Platelet Estimate ADEG, Retic Count 1.15, Immature Retic Fraction 17.60 H, Retic Hgb Equivalent 24.1 L, Sodium 138, Potassium 3.5, Chloride 110 H, Carbon Dioxide 13.0 L, Anion Gap 15, BUN 9, Creatinine 0.59 L, Estim Creat Clear Calc 62.24, Est GFR (MDRD) Non-Af 99, BUN/Creatinine Ratio 16.1, Glucose 188 H, Calcium 6.4 L*, Phosphorus 3.2, Magnesium 2.3 H, Iron 69, TIBC 153 L, Iron Saturation 45.1, Unsaturated IBC 84 L, Ferritin 1155 H, Total Bilirubin < 0.15, AST 22, ALT 17, Alkaline Phosphatase 62, Total Protein 4.8 L, Albumin 2.3 L, Globulin 2.5, Albumin/Globulin Ratio 0.9, b-Hydroxybutyric mmol/L 0.1, Random Vancomycin 15.9 H 01/06/25 06:51: POC Glucose 215 H 01/06/25 07:52: POC Glucose 195 H 01/06/25 08:45: Urine pH 6.0, Ur Random Sodium 73, Urine Potassium 63.2, Urine Chloride 120 01/06/25 08:53: POC Glucose 179 H 01/06/25 11:20: POC Glucose 137 H 01/06/25 13:15: Hgb 9.4 L 01/06/25 16:28: POC Glucose 128 H 01/06/25 18:30: Sodium 138, Potassium 3.5, Chloride 110 H, Carbon Dioxide 14.4 L , Anion Gap 14, BUN 12, Creatinine 0.67 L, Estim Creat Clear Calc 62.24, Est GFR (MDRD) Non-Af 96, BUN/Creatinine Ratio 18.3, Glucose 163 H, Calcium 7.3 L 01/06/25 21:05: POC Glucose 159 H 01/07/25 05:10: WBC 5.9, RBC 3.90 L, Hgb 9.4 L, Hct 30.3 L, MCV 77.7 L, MCH 24.1 L, MCHC 31.0 L, RDW Std Deviation 49.2 H, RDW Coeff of Hung 17.5 H, Plt Count 198, MPV 8.9, Neut % (Auto) Not Reportable, Sodium 140, Potassium 3.2 L, C hloride 109 H, Carbon Dioxide 15.5 L, Anion Gap 15, BUN 15, Creatinine 0.71, Estim Creat Clear Calc 62.24, Est GFR (MDRD) Non-Af 93, BUN/Creatinine Ratio 21.2 H, Glucose 121 H, Calcium 7.6 Micro: Microbiology 01/03/25 22:12 Blood Culture (Wb) - Anticubital Left Blood Culture - Preliminary No growth in 48 hours. 01/03/25 22:12 Blood Culture (Wb) - Anticubital Right Blood Culture - Preliminary No growth in 48 hours. 01/03/25 22:21 Urine Catheter - Mac Urine Culture - Final Staphylococcus aureus 01/04/25 07:15 Nasal Secretion MRSA (PCR) - Final Meth. resistant Staph. aureus 01/04/25 05:30 Mucosa - Nasopharyngeal Respiratory Panel (PCR) - Final 01/03/25 22:21 Urine Catheter - Mac Streptococcus pneumoniae Antigen (M - Final 01/03/25 22:21 Urine Catheter - Mac Legionella Antigen - Final 01/04/25 04:55 Stool Stool Occult Blood (VIDHYA) - Final ABG Data ABG results: ABG 01/06/25 07:35 Specimen Type ART Sample Site R Radial pH 7.41 Bicarbonate Actual 14.9 L Total CO2 16 Base Excess -10 L O2 Saturation 97 ABG pCO2 23.6 L ABG pO2 88 Bebeto Test Positive O2 Delivery Device Room Air Vent Mode Not entered Physical Exam Const alert and no apparent distress General Appearance: cooperative and ill appearing Positive for chronically HEENT normocephalic and head/scalp atraumatic Eyes PERRL, EOMs intact bilaterally and conjunctivae normal Neck supple General: trachea midline and CVC in place Chest inspection of chest normal Resp normal respiratory effort Auscultation: Negative for rales, rhonchi or wheezes Cardio regular rate and regular rhythm GI normal to inspection, nondistended, normoactive bowel sounds Extremity General Extremity: edema; Negative for clubbing Skin no rashes or lesions noted Neuro CN's II-XII intact bilaterally and no focal motor deficits Psych Mood & Affect: flat affect Charges/Coding Visit Charges Inpatient E&M: 71470 Subs Hosp L3
[2025-01-07 06:56] LABS: Neutrophil-Band 1 % (0-5); Neutrophil-Segmented 81 % (47-70); Total Cells Counted 100 (MANUAL DIFF)
[2025-01-07 06:58] LABS: Red Cell Morphology NORM C+C NORMAL (NORM C&C)
--- NOTE | 2025-01-07 07:26 | PN.HOSP_ITS ---
Reason for Visit Chief Complaint: Unresponsive. Subjective Subjective No issues overnight. Patient has no complaints at the time of my evaluation. Awaiting conversation with sister. Objective Data Objective Data Vital Signs: Vital Signs Temp Pulse Resp BP Pulse Ox O2 Del Method O2 Flow Rate 97.6 F L 87 13 96/48 L 98 Room Air 2 01/07/25 05:00 01/07/25 07:00 01/07/25 07:00 01/07/25 07:00 01/07/25 07:00 01/07/25 07:00 01/05/25 07:00 Oxygen Flow Rate (L/min) 2 Oxygen Delivery Method Room Air Weight: 64.3 kg Body Mass Index (BMI) 23.6 Intake & Output: Intake and Output for Last 24 Hours 01/05/25 01/06/25 01/07/25 23:59 23:59 23:59 Intake Total 5071.29 / 5075.05 3807.87 / 3807.87 0 / 0 Output Total 3925 / 3925 1505 / 1805 450 / 450 Balance 1146.29 / 1150.05 2302.87 / 2002.87 -450 / -450 Lab / Micro Data 01/07/25 05:10 01/07/25 05:10 Labs: Laboratory Results - last 24 hr 01/06/25 06:15: Retic Count 1.15, Immature Retic Fraction 17.60 H, Retic Hgb Equivalent 24.1 L, Iron 69, TIBC 153 L, Iron Saturation 45.1, Unsaturated IBC 84 L, Ferritin 1155 H, b-Hydroxybutyric mmol/L 0.1 01/06/25 07:52: POC Glucose 195 H 01/06/25 08:45: Urine pH 6.0, Ur Random Sodium 73, Urine Potassium 63.2, Urine Chloride 120 01/06/25 08:53: POC Glucose 179 H 01/06/25 11:20: POC Glucose 137 H 01/06/25 13:15: Hgb 9.4 L 01/06/25 16:28: POC Glucose 128 H 01/06/25 18:30: Sodium 138, Potassium 3.5, Chloride 110 H, Carbon Dioxide 14.4 L , Anion Gap 14, BUN 12, Creatinine 0.67 L, Estim Creat Clear Calc 62.24, Est GFR (MDRD) Non-Af 96, BUN/Creatinine Ratio 18.3, Glucose 163 H, Calcium 7.3 L 01/06/25 21:05: POC Glucose 159 H 01/07/25 05:10: WBC 5.9, RBC 3.90 L, Hgb 9.4 L, Hct 30.3 L, MCV 77.7 L, MCH 24.1 L, MCHC 31.0 L, RDW Std Deviation 49.2 H, RDW Coeff of Hung 17.5 H, Plt Count 198, MPV 8.9, Neut % (Auto) Not Reportable, Absolute Neuts (auto) 4.8, Absolute Lymphs (auto) 0.41 L, Total Counted 100, Neutrophils % (Manual) 81 H, Band Neutrophils % 1, Lymphocytes % (Manual) 7 L, Monocytes % (Manual) 9, M etamyelocytes % 2 H, Platelet Estimate ADEQUATE, RBC Morphology NORM C+C, Sodium 140, Potassium 3.2 L, Chloride 109 H, Carbon Dioxide 15.5 L, Anion Gap 15, BUN 15, Creatinine 0.71, Estim Creat Clear Calc 62.24, Est GFR (MDRD) Non-Af 93, B UN/Creatinine Ratio 21.2 H, Glucose 121 H, Calcium 7.6 Micro: Microbiology 01/03/25 22:12 Blood Culture (Wb) - Anticubital Left Blood Culture - Preliminary No growth in 48 hours. 01/03/25 22:12 Blood Culture (Wb) - Anticubital Right Blood Culture - Preliminary No growth in 48 hours. 01/03/25 22:21 Urine Catheter - Mac Urine Culture - Final Staphylococcus aureus 01/04/25 07:15 Nasal Secretion MRSA (PCR) - Final Meth. resistant Staph. aureus 01/04/25 05:30 Mucosa - Nasopharyngeal Respiratory Panel (PCR) - Final 01/03/25 22:21 Urine Catheter - Mac Streptococcus pneumoniae Antigen (M - Final 01/03/25 22:21 Urine Catheter - Mac Legionella Antigen - Final 01/04/25 04:55 Stool Stool Occult Blood (VIDHYA) - Final ABG Data ABG results: ABG 01/06/25 07:35 Specimen Type ART Sample Site R Radial pH 7.41 Bicarbonate Actual 14.9 L Total CO2 16 Base Excess -10 L O2 Saturation 97 ABG pCO2 23.6 L ABG pO2 88 Bebeto Test Positive O2 Delivery Device Room Air Vent Mode Not entered Physical Exam Const alert, no apparent distress and average body habitus; Negative for oriented x3, healthy appearing or well nourished Constitutional Narrative: Upper middle-aged, white female, sitting up in bed, watching television, oriented to self and place and month but not year again, confusion does seem to be waxing and waning in severity HEENT normocephalic, head/scalp atraumatic and hearing grossly normal bilaterally HEENT Narrative: Dentition is poor, Mallampati is 2, no thrush Eyes Eyes Narrative: No scleral icterus Resp normal respiratory effort, no retractions, no use of accessory muscles and clear to auscultation bilaterally Resp Narrative: Diminished but clear Auscultation: Negative for rales, rhonchi or wheezes Cardio regular rate, regular rhythm, S1 normal heart sound, S2 normal heart sound, no murmurs, no rub, no gallops and no clicks GI normal to inspection, nondistended, normoactive bowel sounds, soft to palpation and non-tender Extremity no clubbing, cyanosis or edema Extremity Narrative: Trace to 1+ bilateral lower extremity pitting edema, pedal pulses and radial pulses are 2+, markedly decreased lean muscle mass, no clubbing or cyanosis Neuro Neuro Narrative: Speech is way more intelligible but still slightly delayed Sensorium / Orientation: awake, alert, oriented to person and oriented to place; Negative for oriented to time Speech: speech normal Psych Psych Narrative: Affect is flat, mood seems depressed Assessment & Plan Assessment/Plan (1) Septic shock: (2) Toxic metabolic encephalopathy: (3) Acute UTI: (4) Multiple sclerosis: (5) Leukocytosis: (6) Anemia: (7) Metabolic acidosis: (8) Elevated troponin: (9) Left lower lobe pulmonary infiltrate: (10) Hypophosphatemia: (11) Diabetic ketoacidosis associated with type 2 diabetes mellitus: PLAN: Plan Septic shock secondary to complicated MRSA UTI -Suspect predominantly based on complicated UTI with potential aspiration -Pressors have been weaned - Continue midodrine 10 mg -Decrease stress dose steroids of hydrocortisone 50 twice daily to 50 daily -Will need to monitor blood sugars closely for drop with decrease in steroids -Continue vancomycin--> day 4 of 10 for antibiotic coverage Diabetic ketoacidosis - Resolved - Beta hydroxybutyrate was 4.9 and now down to 0.1 - Will transition off insulin drip to subcu insulin - Will need to titrate insulin once steroids are weaned Non-anion gap metabolic acidosis - Suspect multifactorial with elevated chloride - DKA is resolved and gap is closed -Patient with positive urine anion gap suggestive of RTA - Suspect type II or type IV - Aldosterone level is pending - Continue oral bicarb as serum bicarbonate is improving - Anion gap remains closed Elevated troponin - Initial troponin elevated with downtrend since then - Suspect secondary to subendocardial ischemia due to demand with sepsis - No further workup at this time Hypokalemia/h -Potassium bolus ordered - Recheck in a.m. Hypocalcemia -Calcium is within normal limits when corrected for albumin Anemia -Hemoglobin is stabilized with no signs of active bleeding -Iron studies are suggestive of chronic disease -Repeat CBC in a.m. Essential hypertension/hyperlipidemia -Continue to hold atenolol -Continue to hold atorvastatin -Hold fenofibrate DM-2 - DKA has resolved -Continue Lantus but decrease to 8 units with decrease in stress dose steroids -Continue SSI -Continue to monitor blood sugars closely with gastro steroids Documented history of chronic hypoxic respiratory failure - Patient is stable on room air - Unclear if this is an accurate diagnosis or not - Will continue to monitor History of multiple sclerosis - Patient with chronic debility and significant functional decline and disability - Overall seems would be appropriate for hospice - Will try to get in contact with decision makers and discuss further if possible -case management is assisting in this Depression/anxiety - Continue to hold oral medications today until speech therapy evaluates patient DVT prophylaxis -Continue Lovenox subcu daily CODE STATUS - DNR CCA with no intubation Will place hospice consult if sister is amenable. Awaiting phone call back. Case management is trying to touch base. Charges/Coding Visit Charges Inpatient E&M: 83793 Subs Hosp L2
--- NOTE | 2025-01-07 08:00 | CASEMGMT ---
Social Work SW called both pt's brother in law and sister once again this morning, both phone numbers go to voicemail where SW cannot leave messages. NASRIN Roberts
[2025-01-07] MEDS: Potassium Chloride Oral Soln 20 MEQ/15 ML UDC 40 MEQ PO (09:15)
[2025-01-07] MEDS: Insulin Glargine-YFGN 100 UNIT/ML Pen 8 UNIT SC (09:15)
[2025-01-07] MEDS: Pantoprazole Sodium 40 MG in 0.9% Normal Saline (100mL MB+) 100 ML 300 MG IV (09:17)
--- NOTE | 2025-01-07 09:20 | CASEMGMT ---
Addendum entered by Emilia Lacey 01/07/25 09:59: Social Work SW spoke w/physician, pt's sister/POA agreeable to hospice referral made. SW called hospice, faxed referral. SW will continue to follow. RN on the floor aware. NASRIN Roberts Original Note: Social Work SW did an extensive search on the internet to find other family members. SW called pt's nephew, to pt's niece Denise Angel, message left. Denise called SW back, EUSEBIA had actually called Denise's ex-. She is the daughter of the POA Sandi Johnson. She states Sandi and Elías are her parents, pt is her aunt. SW explained having a difficult time reaching pt's POA, her mother. Denise let EUSEBIA know that her parents are in [facility]. She states will reach out to her parents and have them call EUSEBIA. A short time later Sandi did call EUSEBIA. EUSEBIA explained has been trying to reach her since yesterday, and her phone still goes to [employer], and her 's does as well. EUSEBIA reviewed the numbers again, SW has the correct numbers. Sandi states her phone is now plugged in and charging. EUSEBIA asked if the plan will be for pt to return to [place], Sandi confirms it is. EUSEBIA inquired about hospice, if she would be agreeable to a hospice referral. Sandi states she thought if it was hospice she did not have to be involved. EUSEBIA explained that pt is not fully alert and oriented, and she is pt's POA. EUSEBIA explained as pt's POA she is to act on pt's behalf since pt cannot speak for herself at present. Pt's sister then asked about pt's labs, and how pt is doing. EUSEBIA explained will see if SW can put her in touch w/the doctor. SW asked her also to have the ringers on, on both of their phones, and to please answer if the hospital calls. EUSEBIA then was able to get in touch w/Dr. Apodaca and transfer the call to her so that pt's sister/POA could speak w/physician directly about pt. SW will continue to follow, will make hospice referral if pt's sister is agreeable. NASRIN Roberts
[2025-01-07] MEDS: Vancomycin HCl 1,000 MG in 0.9% Normal Saline (250mL Bag) 250 ML 250 MG IV (10:10)
--- NOTE | 2025-01-07 10:37 | CASEMGMT ---
Addendum entered by Emilia Lacey 01/07/25 10:47: Social Work SW sent updates to [facility] and let them know that a hospice referral was made, sent updates and updated demographic information as well. As per [facility], pt can return any time. NASRIN Roberts Original Note: Social Work SW received a call from [facility]. They are not able to reach pt's sister, her voicemail is full and her 's voicemail is not set up. SW explained that this has been happening for the last three days, gave her the number to [facility] in [place] to try to reach pt's sister/POA: [phone]. RAFAEL RobertsS
--- NOTE | 2025-01-07 11:10 | WOUNDNOTE ---
wound photo: sacrum/buttocks
--- NOTE | 2025-01-07 15:23 | CASEMGMT ---
Social Work SW called hospice to check in on referral. As per hospice, they have not followed up again, it is not documented that they actually called [facility]. SW called pt's sister again, the phone did ring but SW could not leave a message. SW called brother in law, goes to voicemail that is not set up. A short time later pt's sister called into ICU. SW spoke w/her, explained that hospice is trying to reach her, gave her the number to call. SW also gave her this SW's number directly. SW will continue to follow. NASRIN Roberts
--- NOTE | 2025-01-07 22:00 | NURSING ---
This RN received report on this pt and taking over care at this time.
[2025-01-08 03:16] VITALS: BP 100/53; PULSE 102; RESP 17; TEMP 36.3; O2SAT 97
[2025-01-08 05:41] VITALS: BMI 23.6
[2025-01-08 08:00] VITALS: PULSE 95
[2025-01-08 08:07] LABS: Hematocrit 33.1 % (37-47); Hemoglobin 9.9 g/dL (12.0-15.0); Mean Corp Hgb Conc 29.9 g/dL (32-36); Mean Corpuscular Volume 81.5 fL (81-99); Mean Platelet Vol. 9.3 fl (6.2-12.0); Platelet Count 215 K/mm3 (150-450); RBC Distribution Width CV 18.4 % (11.6-14.6); RBC Distribution Width SD 53.6 fl (35.1-43.9); Red Blood Count 4.06 M/mm3 (4.2-5.4); White Blood Count 5.9 K/mm3 (4.4-11.0)
--- NOTE | 2025-01-08 08:24 | NURSING ---
vancomycin not on unit, either fridge or bin or at charge nurse desk at this time
[2025-01-08 08:31] LABS: Anion Gap 17 (5-15); BUN 18 mg/dL (4-19); BUN/Creat Ratio 17.2 RATIO (10-20); Calcium,Total 8.2 mg/dL (7.6-11.0); Carbon Dioxide 13.0 mmol/L (21.0-32.0); Chloride 112 mmol/L (98-108); Estimated Creatinine Clearance 48.35 ml/min (50-250); Glucose 78 mg/dL (70-99); Magnesium 2.0 mg/dL (1.5-2.2); Potassium 3.3 mmol/L (3.3-5.1); Vancomycin, Trough Level 27.6 ug/mL (5.0-15.0)
--- NOTE | 2025-01-08 08:49 | PCM.RX.CS ---
Consult Antibiotic Management Pharmacy has been consulted to manage selected antibiotic: Vancomycin Type of Intervention Type of Consult: Follow-up Prior Doses of Antibiotics Prior Doses of Antibiotics Received/Current Regimen: current dose is 1000mg IV q24h Labs Labs: Sodium 142 mmol/L (133-145) 01/08/25 07:18 Potassium 3.3 mmol/L (3.3-5.1) 01/08/25 07:18 Chloride 112 mmol/L (98-108) H 01/08/25 07:18 Carbon Dioxide 13.0 mmol/L (21.0-32.0) L 01/08/25 07:18 Anion Gap 17 (5-15) H 01/08/25 07:18 BUN 18 mg/dL (4-19) 01/08/25 07:18 Creatinine 1.03 mg/dL (0.70-1.20) 01/08/25 07:18 Est GFR (MDRD) Non-Af 60 (>60) 01/08/25 07:18 BUN/Creatinine Ratio 17.2 RATIO (10-20) 01/08/25 07:18 Glucose 78 mg/dL (70-99) 01/08/25 07:18 Vancomycin Trough 27.6 ug/mL (5.0-15.0) H 01/08/25 07:18 Random Vancomycin 15.9 ug/mL (0.0-15.0) H 01/06/25 06:15 Microbiology Microbiology: Microbiology 01/03/25 22:12 Blood Culture (Wb) - Anticubital Left Blood Culture - Preliminary No growth in 48 hours. 01/03/25 22:12 Blood Culture (Wb) - Anticubital Right Blood Culture - Preliminary No growth in 48 hours. 01/03/25 22:21 Urine Catheter - Mac Urine Culture - Final Staphylococcus aureus 01/04/25 07:15 Nasal Secretion MRSA (PCR) - Final Meth. resistant Staph. aureus 01/04/25 05:30 Mucosa - Nasopharyngeal Respiratory Panel (PCR) - Final 01/03/25 22:21 Urine Catheter - Mac Streptococcus pneumoniae Antigen (M - Final 01/03/25 22:21 Urine Catheter - Mac Legionella Antigen - Final 01/04/25 04:55 Stool Stool Occult Blood (VIDHYA) - Final Dosing Weight Weight used for dosin.3 kg Estimated Creatinine Clearance Estimated Creatinine Clearance: 48 ml/min Goal Trough Goal Trough: 15-20 mcg/mL Pharmacy Plan for Drug Dosing Pharmacy Plan for Drug Dosing: VANCOMYCIN LEVEL RECEIVED Current Vancomycin Dose: 1000MG Q24H Number of Doses Received: 2 Vancomycin Level: 27.6 Hours Since Last Dose: 21 Renal Function: SCR 1.03, CRCL 48 Renal Function Trend: SCR UP SLIGHTLY FROM 0.71 YESTERDAY AND 0.59 TWO DAYS AGO Vancomycin Plan/Comments: TROUGH IS HIGH (ALTHOUGH WAS DRAWN AT ONLY 21 HOURS AFTER PREVIOUS DOSE SINCE THAT DOSE GIVEN LATE). HOLD CURRENT DOSE. GET RANDOM LEVEL TONIGHT. Pending Level: 01/08/25 2200 (RANDOM LEVEL) Pharmacy Service will continue to monitor and adjust dosing as required. Follow-Up Labs Follow-Up Labs: Trough: Vancomycin (random) Date/Time Labs Ordered Labs to be done on [date and time ordered]: 01/08/25 22:00
--- NOTE | 2025-01-08 08:50 | NURSING ---
vanc still not on unit
[2025-01-08 08:56] VITALS: BP 97/50; PULSE 95; RESP 18; TEMP 36.6; O2SAT 96
[2025-01-08] MEDS: Pantoprazole Sodium 40 MG in 0.9% Normal Saline (100mL MB+) 100 ML 330 MG IV (10:20)
[2025-01-08] MEDS: Insulin Glargine-YFGN 100 UNIT/ML Pen 8 UNIT SC (10:20)
--- NOTE | 2025-01-08 10:23 | NURSING ---
vancomycin still not on unit for pt administration
--- NOTE | 2025-01-08 11:04 | CASEMGMT ---
Addendum entered by Yani Handy 01/08/25 16:28: EUSEBIA received a call from Christiane at hospice. Christiane reports that following a conversation with pt bedside nurse and review of records, hospice medical consultant has accepted pt into hospice care, but feels that pt is not IPU appropriate. A full hospice intake assessment to be completed at [facility]. Hospice can transport 01/09 and will call with an ETA. EUSEBIA updated hospitalist who is agreeable to d/c plans for tomorrow to [facility] with hospice services. EUSEBIA remains available to follow. Plan: [facility]; return with hospice services KAILEE Cai Addendum entered by Yani Handy 01/08/25 12:56: EUSEBIA receives a call from Christiane, [facility], who reports that she is in [place] and will be physically going to [facility] to obtain consent from pt sister. Christiane contact is : [phone] and reports that she will personally be handling pt referral and serving as contact point. Christiane inquired into pt status and wishes for assessment at [facility] vs at d/c back to [facility]. EUSEBIA coordinated with hospitalist, who prefers assessment while at [facility]. EUSEBIA updated Christiane at [facility]. Christiane reports that she will work with medical consultant after consent is obtained to assess pt and determine if IPU transition is appropriate. EUSEBIA updated hospitalist and bedside nurse.EUSEBIA remains available to follow. KAILEE Cai Original Note: Social Work- EUSEBIA called [facility] hospice and spoke with Homa. Leta reports that scheduling has called pt sister's cell phone. EUSEBIA provided [facility]'s number where sister resides. Homa entered number into system with note that the [place] number is preferred contact and forwarded to customer advocacy manager. EUSEBIA coordinated with hospitalist. EUSEBIA remains available to follow. KAILEE Cai
--- NOTE | 2025-01-08 13:06 | NURSING ---
friend arrived w/pt phone and charge cord-pt pleased w/ arrival of her phone
[2025-01-08 15:00] VITALS: BP 95/52; PULSE 97; RESP 18; TEMP 36.6; O2SAT 99
[2025-01-08] MEDS: Arthritis Pain Compound 60 CLICK TUBE TOPICAL ×2 (16:08→22:35)
[2025-01-08] MEDS: Nystatin/Triamcin Cream Tube 1 APPLIC TOPICAL ×2 (16:09→22:37)
--- NOTE | 2025-01-08 16:56 | PCM.PROGNOTE ---
Subjective Subjective Patient seen and examined. She was lethargic but able to communicate. She denied having any active complaints. I saw patient with her nurse by her bedside. Her blood pressure is running lower but it appears her blood pressure does run chronically low. Blood pressure is 95/52 this morning. Review of systems otherwise negative. Objective Data Objective Data Vital Signs: Vital Signs Temp Pulse Resp BP Pulse Ox O2 Del Method O2 Flow Rate 97.8 F 97 18 95/52 L 99 Room Air 2 01/08/25 15:00 01/08/25 15:00 01/08/25 15:00 01/08/25 15:00 01/08/25 15:00 01/08/25 15:00 01/05/25 07:00 Oxygen Flow Rate (L/min) 2 Oxygen Delivery Method Room Air Weight: 141 lb 12.116 oz Body Mass Index (BMI) 23.6 Intake & Output: Intake and Output for Last 24 Hours 01/06/25 01/07/25 01/08/25 23:59 23:59 23:59 Intake Total 3807.87 / 3807.87 610 / 610 250 / 250 Output Total 1505 / 1805 500 / 500 540 / 540 Balance 2302.87 / 2002.87 110 / 110 -290 / -290 Lab / Micro Data 01/08/25 07:18 01/08/25 07:18 Labs: Laboratory Results - last 24 hr 01/08/25 06:39: POC Glucose 85 01/08/25 07:18: WBC 5.9, RBC 4.06 L, Hgb 9.9 L, Hct 33.1 L, MCV 81.5, MCH 24.4 L, MCHC 29.9 L, RDW Std Deviation 53.6 H, RDW Coeff of Hung 18.4 H, Plt Count 215, MPV 9.3, Sodium 142, Potassium 3.3, Chloride 112 H, Carbon Dioxide 13.0 L, Anion Gap 17 H, BUN 18, Creatinine 1.03, Estim Creat Clear Calc 48.35 L, Est GFR (MDRD) Non-Af 60, BUN/Creatinine Ratio 17.2, Glucose 78, Calcium 8.2, Magnesium 2.0, Vancomycin Trough 27.6 H 01/08/25 12:28: POC Glucose 94 Micro: Microbiology 01/03/25 22:12 Blood Culture (Wb) - Anticubital Left Blood Culture - Preliminary No growth in 48 hours. 01/03/25 22:12 Blood Culture (Wb) - Anticubital Right Blood Culture - Preliminary No growth in 48 hours. 01/03/25 22:21 Urine Catheter - Mac Urine Culture - Final Staphylococcus aureus 01/04/25 07:15 Nasal Secretion MRSA (PCR) - Final Meth. resistant Staph. aureus 01/04/25 05:30 Mucosa - Nasopharyngeal Respiratory Panel (PCR) - Final 01/03/25 22:21 Urine Catheter - Mac Streptococcus pneumoniae Antigen (M - Final 01/03/25 22:21 Urine Catheter - Mac Legionella Antigen - Final 01/04/25 04:55 Stool Stool Occult Blood (VIDHYA) - Final Physical Exam Const Constitutional Narrative: frail, weak, responds to voice Orientation / Consciousness: lethargic HEENT normocephalic and head/scalp atraumatic Neck no lymphadenopathy and supple Lymph Lymphatic: no lymphedema noted Resp Resp Narrative: mildly diminished breath sounds bibasally, no wheezes or crackles. On room air. Cardio regular rate, regular rhythm, S1 normal heart sound, S2 normal heart sound and no murmurs GI normal to inspection, nondistended, normoactive bowel sounds, soft to palpation and non-tender Extremity normal capillary refill General Extremity: no tenderness to palpation of joints or extremities Skin General Skin Exam: no breakdown Neuro Neuro Narrative: lethargic, frail Assessment & Plan Assessment/Plan (1) Toxic metabolic encephalopathy: PLAN: Plan #Septic shock due to UTI Urine cultures grew MRSA. Weaned off of pressors. Blood pressure still running low also on midodrine. On stress dose of steroids which have been decreased to 50 mg of hydrocortisone daily. On vancomycin, to complete 10 days of antibiotics. DC stress dose of steroids today #DKA: Resolved. #Known anion gap metabolic acidosis: There was concern for RTA. On oral bicarbonate. #Elevated troponin: Thought to be due to demand ischemia in the setting of sepsis. No further workup indicated. #Hypokalemia: Replace and monitor. #Benign essential hypertension: Atenolol held in light of the hypotension for which she is on midodrine #Hyperlipidemia: On statin. This is on hold as well as the fenofibrate #Type 2 diabetes mellitus: DKA has resolved as stated above. On Lantus but decrease to 8 units. Insulin sliding scale. Accu-Cheks ACHS. #History of multiple sclerosis with severe debility Hospice consulted and they state they will reevaluate patient in her senior living tomorrow upon discharge. #Depression and anxiety: Oral meds held pending speech therapy evaluation. DVT prophylaxis: Lovenox CODE STATUS: DNR CCA no intubation Disposition: Hospice was consulted and per case management they said they were going to evaluate patient in her senior living. Patient therefore likely to be discharged tomorrow and hospice will transfer her to her home. Charges/Coding Visit Charges Inpatient E&M: 30021 Subs Hosp L2
[2025-01-08 20:22] VITALS: BP 113/51; PULSE 102; RESP 18; TEMP 36.3; O2SAT 100
[2025-01-08 23:01] LABS: Vancomycin, Random Level 24.3 ug/mL (0.0-15.0)
--- NOTE | 2025-01-09 01:38 | PCM.RX.CS ---
Consult Antibiotic Management Pharmacy has been consulted to manage selected antibiotic: Vancomycin Type of Intervention Type of Consult: Follow-up Labs Labs: Sodium 142 mmol/L (133-145) 01/08/25 07:18 Potassium 3.3 mmol/L (3.3-5.1) 01/08/25 07:18 Chloride 112 mmol/L (98-108) H 01/08/25 07:18 Carbon Dioxide 13.0 mmol/L (21.0-32.0) L 01/08/25 07:18 Anion Gap 17 (5-15) H 01/08/25 07:18 BUN 18 mg/dL (4-19) 01/08/25 07:18 Creatinine 1.03 mg/dL (0.70-1.20) 01/08/25 07:18 Est GFR (MDRD) Non-Af 60 (>60) 01/08/25 07:18 BUN/Creatinine Ratio 17.2 RATIO (10-20) 01/08/25 07:18 Glucose 78 mg/dL (70-99) 01/08/25 07:18 Vancomycin Trough 27.6 ug/mL (5.0-15.0) H 01/08/25 07:18 Random Vancomycin 24.3 ug/mL (0.0-15.0) H 01/08/25 22:29 Microbiology Microbiology: Microbiology 01/03/25 22:12 Blood Culture (Wb) - Anticubital Left Blood Culture - Preliminary No growth in 48 hours. 01/03/25 22:12 Blood Culture (Wb) - Anticubital Right Blood Culture - Preliminary No growth in 48 hours. 01/03/25 22:21 Urine Catheter - Mac Urine Culture - Final Staphylococcus aureus 01/04/25 07:15 Nasal Secretion MRSA (PCR) - Final Meth. resistant Staph. aureus 01/04/25 05:30 Mucosa - Nasopharyngeal Respiratory Panel (PCR) - Final 01/03/25 22:21 Urine Catheter - Mac Streptococcus pneumoniae Antigen (M - Final 01/03/25 22:21 Urine Catheter - Mac Legionella Antigen - Final 01/04/25 04:55 Stool Stool Occult Blood (VIDHYA) - Final Goal Trough Goal Trough: 15-20 mcg/mL Pharmacy Plan for Drug Dosing Pharmacy Plan for Drug Dosing: Pharmacy Service will continue to monitor and adjust dosing as required. RANDOM LEVEL 24.3. CONTINUE TO HOLD AND DRAW RANDOM LEVEL IN 24 HOURS Follow-Up Labs Follow-Up Labs: Trough: Vancomycin Date/Time Labs Ordered Labs to be done on [date and time ordered]: 01/09 @ 2200
[2025-01-09 03:27] VITALS: BP 91/48; PULSE 106; RESP 16; TEMP 36.4; O2SAT 96
[2025-01-09 04:03] VITALS: BMI 24.0
[2025-01-09] MEDS: Nystatin/Triamcin Cream Tube 1 APPLIC TOPICAL ×2 (06:27→15:02)
[2025-01-09 06:40] LABS: Hematocrit 32.6 % (37-47); Hemoglobin 9.6 g/dL (12.0-15.0); Mean Corp Hgb Conc 29.4 g/dL (32-36); Mean Corpuscular Volume 80.5 fL (81-99); Mean Platelet Vol. 9.0 fl (6.2-12.0); POSITIVE COUNT YES; POSITIVE MORPHOLOGY YES; Platelet Count 214 K/mm3 (150-450); RBC Distribution Width CV 19.0 % (11.6-14.6); RBC Distribution Width SD 54.0 fl (35.1-43.9); Red Blood Count 4.05 M/mm3 (4.2-5.4); White Blood Count 7.4 K/mm3 (4.4-11.0)
[2025-01-09 07:04] LABS: Anion Gap 17 (5-15); BUN 17 mg/dL (4-19); BUN/Creat Ratio 16.0 RATIO (10-20); Calcium,Total 8.2 mg/dL (7.6-11.0); Carbon Dioxide 14.0 mmol/L (21.0-32.0); Chloride 112 mmol/L (98-108); Estimated Creatinine Clearance 46.11 ml/min (50-250); Glucose 101 mg/dL (70-99); Potassium 2.9 mmol/L (3.3-5.1)
[2025-01-09 07:21] LABS: Differential Indicated MANUAL DIFF
[2025-01-09 08:57] VITALS: BP 99/57; PULSE 118; RESP 18; TEMP 36.6; O2SAT 96
[2025-01-09] MEDS: Arthritis Pain Compound 60 CLICK TUBE TOPICAL (09:01)
[2025-01-09] MEDS: 0.9% Saline Lock 10 ML Syringe IV ×2 (09:06→11:13)
[2025-01-09] MEDS: 0.9% Normal Saline (250mL Bag) 250 ML 15 ML IV (09:06)
[2025-01-09 10:07] LABS: Neutrophil-Segmented 58 % (47-70); Red Cell Morphology NORM C+C NORMAL (NORM C&C); Total Cells Counted 100 (MANUAL DIFF)
[2025-01-09] MEDS: 0.9% Normal Saline (1000mL) 1,000 ML 999 ML IV (10:44)
[2025-01-09] MEDS: Potassium Chloride 10mEq/100mL 10 MEQ/100 ML IV.SOLN. 100 MEQ IV BOLUS ×4 (11:12→14:36)
[2025-01-09] MEDS: Insulin Glargine-YFGN 100 UNIT/ML Pen 8 UNIT SC (11:17)
[2025-01-09 14:10] VITALS: PULSE 114
[2025-01-09 14:56] VITALS: BP 119/67; PULSE 116; RESP 18; TEMP 37.2; O2SAT 97
--- NOTE | 2025-01-09 15:06 | DS.PCM_ITS ---
Providers Date of Admission: 01/04/25 Date of Discharge: 01/09/25 Primary Care Physician: Dr. Breanne Ruiz MD Consultations 01/04/25 03:45 Consult: Coffee Shop Attendant / Pulmonary Medicine Routine Consulting Provider: Intensivists/Pulmonary Med Reason for Consult: Sepsis with Septic Shock 2/2 UTI w/ Septic Encepalopathy. EMERGENT Consult: No MD Notified: Yes Date Notified: 01/04/25 Time Notified: 05:31 Method of Notification: Text 01/04/25 09:43 Consult: Onc/Wound/fitter welder Routine Comment: Reason for Consult:: wound coccyx/buttocks Reason For Visit: SEPSIS WITH SEPTIC SHOCK 2/2 UTI W/SEPTIC Diagnosis Discharge Diagnosis (1) Toxic metabolic encephalopathy: Status: Acute Code(s): G92.8 - Other toxic encephalopathy Plan #Septic shock due to UTI * Urine cultures grew MRSA. Weaned off of pressors. * Blood pressure still running low also on midodrine. On stress dose of steroids which have been decreased to 50 mg of hydrocortisone daily. * On vancomycin, to complete 10 days of antibiotics. * DC stress dose of steroids today * #DKA: Resolved. #Known anion gap metabolic acidosis: There was concern for RTA. On oral bicarbonate. #Elevated troponin: Thought to be due to demand ischemia in the setting of sepsis. No further workup indicated. #Hypokalemia: Replace and monitor. #Benign essential hypertension: Atenolol held in light of the hypotension for which she is on midodrine #Hyperlipidemia: On statin. This is on hold as well as the fenofibrate #Type 2 diabetes mellitus: DKA has resolved as stated above. On Lantus but decrease to 8 units. Insulin sliding scale. Accu-Cheks ACHS. #History of multiple sclerosis with severe debility * Hospice consulted and they state they will reevaluate patient in her [facility] tomorrow upon discharge. #Depression and anxiety: Oral meds held pending speech therapy evaluation. DVT prophylaxis: Lovenox CODE STATUS: DNR CCA no intubation Disposition: Hospice was consulted and per case management they said they were going to evaluate patient in her [facility]p. Patient therefore likely to be discharged tomorrow and hospice will transfer her to her home. Medications at Discharge Home Medications acetaminophen 500 mg tablet 1,000 mg PO Q4H PRN PRN Pain 07/03/18 Lactobacillus rhamnosus GG 10 billion cell capsule 1 cap PO DAILY 01/03/25 atorvastatin 10 mg tablet (Lipitor) 10 mg PO QHS 01/03/25 dulaglutide 1.5 mg/0.5 mL subcutaneous pen injector (Trulicity) 1.5 mg subcut QWEEK 01/03/25 escitalopram oxalate 10 mg tablet (Lexapro) 10 mg PO DAILY 01/03/25 fenofibrate 54 mg tablet 54 mg PO DAILY 01/03/25 lidocaine 4 % topical patch (Aspercreme (lidocaine)) 1 patch topical DAILY 01/03/25 loratadine 10 mg tablet (Allerclear) 10 mg PO DAILY 01/03/25 nitroglycerin 0.4 mg sublingual tablet 0.4 mg sublingual Q5M 01/03/25 oxycodone 5 mg tablet 2.5 mg PO Q4H pain 01/03/25 sennosides 8.6 mg-docusate sodium 50 mg tablet (Senna Plus) 1 tab-cap PO DAILY 01/03/25 midodrine 5 mg tablet 10 mg (2 x 5 mg) PO TIDCM 30 days #180 tabs 01/09/25 sodium bicarbonate 650 mg tablet 650 mg PO 4X/DAY 30 days #120 tabs 01/09/25 Hospital Course Operations None Procedures None Summary of Care Provided Minutes Spent on Discharge: 45 Hospital Course: Patient is a 64-year-old male with an extensive past medical history as outlined chronic respiratory failure and history of multiple sclerosis was admitted for weakness few healthy after being found unresponsive and hypoxic. There had been a hospice consultation at her [facility] on the day of admission but her sister was the POA wanted to wait before signing her up with hospice. When she came to the ED she was found to be febrile and hypotensive with blood pressure down in the 70s. She had emergent central line insertion done in the ED. She was also having leukocytosis with WBC of 17.3 and urinalysis showed evidence of UTI. She was therefore admitted to be managed for septic shock due to UTI. She also had hyperkalemia with potassium of 5.5. CT of the brain showed no acute intracranial pathology. Chest x-ray showed left basilar/consolidation and atelectasis. She was admitted initially to the ICU to be managed for septic shock. Critical care was consulted. She was started on broad-spectrum antibiotics. She was eventually weaned off of pressors. Urine cultures grew MRSA. She had to be started on midodrine on account of her blood pressure running low and she was also placed on stress dose steroids which were eventually tapered off. Hospital course was complicated by DKA which was treated with insulin drip and subsequently resolved. Her blood pressure medication was held in light of the hypotension. Patient had a prolonged hospital course. She was placed on oral bicarbonate for RTA. Patient still remained lethargic. Hospice was consulted and patient and his sister was the POA finally decided to sign up with hospice once patient was discharged back to her [facility]p. She was therefore discharged to the [facility] on 01/09/2025 with hospice and she was transported there by hospice. Patient was seen and examined on the day of discharge with her nurse by her bedside. She still remains very weak and frail. She was tachycardic. Unable to do comprehensive review of systems due to her lethargic. Labs and vitals reviewed. Home medication reviewed and reconciled. Physical Exam Const Constitutional Narrative: frail, weak, responds to voice, lethargic Orientation / Consciousness: confused and lethargic HEENT normocephalic and head/scalp atraumatic Eyes PERRL, EOMs intact bilaterally and conjunctivae normal Eyes Narrative: No scleral icterus Neck Neck Narrative: Neck veins are flat, trachea midline Lymph Lymphatic: no lymphedema noted Resp Resp Narrative: mildly diminished breath sounds bibasally, no wheezes or crackles. On room air. Cardio regular rhythm, S1 normal heart sound, S2 normal heart sound, no murmurs and no rub Cardio Narrative: tachycardic GI normal to inspection, nondistended, normoactive bowel sounds, soft to palpation, non-tender and non-distended Extremity normal to inspection and no clubbing, cyanosis or edema General Extremity: no tenderness to palpation of joints or extremities Neuro Neuro Narrative: lethargic, frail Psych Psych Narrative: Affect is flat, mood seems depressed Weight / BMI Weight Weight: 144 lb 13.499 oz Body Mass Index (BMI) 24.0 ABG / Lab / Microbiology Data 01/09/25 05:50 01/09/25 05:50 Laboratory: Laboratory Results - last 24 hr 01/08/25 16:41: POC Glucose 154 H 01/08/25 22:20: POC Glucose 145 H 01/08/25 22:29: Random Vancomycin 24.3 H 01/09/25 05:50: WBC 7.4, RBC 4.05 L, Hgb 9.6 L, Hct 32.6 L, MCV 80.5 L, MCH 23.7 L, MCHC 29.4 L, RDW Std Deviation 54.0 H, RDW Coeff of Hung 19.0 H, Plt Count 214, MPV 9.0, Neut % (Auto) Not Reportable, Absolute Neuts (auto) 4.3, Absolute Lymphs (auto) 1.60, Total Counted 100, Neutrophils % (Manual) 58, Lymphocytes % (Manual) 21, Monocytes % (Manual) 12 H, Basophils % (Manual) 1, Metamyelocytes % 2 H, Myelocytes % 6 H, Platelet Estimate ADEQUATE, RBC Morphology NORM C+C, Sodium 144, Potassium 2.9 L, Chloride 112 H, Carbon Dioxide 14.0 L, Anion Gap 17 H, BUN 17, Creatinine 1.08, Estim Creat Clear Calc 46.11 L, Est GFR (MDRD) Non- Af 57 L, BUN/Creatinine Ratio 16.0, Glucose 101 H, Calcium 8.2 01/09/25 06:26: POC Glucose 114 H Microbiology: Microbiology 01/03/25 22:12 Blood Culture (Wb) - Anticubital Left Blood Culture - Final No growth in 5 days. 01/03/25 22:12 Blood Culture (Wb) - Anticubital Right Blood Culture - Final No growth in 5 days. 01/03/25 22:21 Urine Catheter - Mac Urine Culture - Final Staphylococcus aureus 01/04/25 07:15 Nasal Secretion MRSA (PCR) - Final Meth. resistant Staph. aureus 01/04/25 05:30 Mucosa - Nasopharyngeal Respiratory Panel (PCR) - Final 01/03/25 22:21 Urine Catheter - Mac Streptococcus pneumoniae Antigen (M - Final 01/03/25 22:21 Urine Catheter - Mac Legionella Antigen - Final 01/04/25 04:55 Stool Stool Occult Blood (VIDHYA) - Final D/C Instructions Discharge Activity: Return to Normal Activity Weight Bearing Status: Weight bearing as tolerated Call your doctor if you observe: Fever of 101 or Higher, Shortness of breath, Dizziness, Swelling in the ankles and Chest pain DC O2, CPAP, BIPAP Needs Home O2 Discharge instructions: No DC home with Oxygen: No Meaningful Use Info Meaningful Use Meaningful Use Diagnoses (Choose all that apply): None applicable Discharge Plan Admission Admit Date/Time: 01/04/25 02:35 Primary Reason for Your Visit: septic shock due to UTI Attending Provider: Rina Diaz Primary Care Provider: Breanne Ruiz Consulting Providers: Willian Fuller; Maile Apodaca Instructions Patient Instructions: ED UTIs Women Discharge Orders/Prescriptions Prescriptions: New midodrine 5 mg Tablet 10 mg PO TIDCM 30 Days Qty: 180 1RF sodium bicarbonate 650 mg Tablet 650 mg PO 4X/DAY 30 Days Qty: 120 0RF Continued acetaminophen 500 MG tablet 1,000 mg PO Q4H PRN PRN (Reason: Pain) atorvastatin [Lipitor] 10 mg tablet 10 mg PO QHS sennosides-docusate sodium [Senna Plus] 8.6-50 mg tablet 1 tab-cap PO DAILY loratadine [Allerclear] 10 mg tablet 10 mg PO DAILY fenofibrate 54 mg tablet 54 mg PO DAILY Trulicity 1.5 mg/0.5 mL pen injector 1.5 mg subcut QWEEK Rx Instructions: THURSDAYS lidocaine [Aspercreme (lidocaine)] 4 % adhesive patch,medicated 1 patch topical DAILY Rx Instructions: right thigh Lactobacillus rhamnosus GG 10 billion cell capsule 1 cap PO DAILY escitalopram oxalate [Lexapro] 10 mg tablet 10 mg PO DAILY nitroglycerin 0.4 mg tablet, sublingual 0.4 mg sublingual Q5M Rx Instructions: do not exceed 3 doses per episode oxycodone 5 mg tablet 2.5 mg PO Q4H Discontinued atenolol 25 tablet 25 mg PO DAILY ciprofloxacin HCl [Cipro] 250 mg tablet 250 mg PO BID Referrals / Follow Up: Breanne Ruiz MD [Primary Care Provider] - Disposition Disposition (needs filled in before D/C Order can be placed): Hospice in Medical Facility Charges/Coding Visit Charges Inpatient E&M: 69058 Disch Hosp >30min
--- NOTE | 2025-01-09 15:37 | PCM.TXEXTCAR ---
Diet Diet Order/Speech Therapy: INPATIENT Hospital Diet / Speech Therapy Order(s) 01/06/25 08:33 Diet: Carbohydrate Controlled Food consistency:: Mechanical (Minced/Moist) Liquid Consistency:: [place]/Mildly Thick Type of Dietary Supplement:: [place] Breakfast Diet Comments: 8oz [place] with meals - thickened Routine Orders/Code Status Enema Type: Fleetz Enema Frequency: Daily PRN Suppository Type: Dulcolax 10mg Suppository Frequency: Daily PRN DC O2, CPAP, BIPAP needs Home O2 Discharge instructions: No Wound(s) coccyx: Wound Type: Pressure Injury sacrum/buttocks: Wound Type: shear injury Therapies Weight Bearing: Weight bearing as tolerated Problem/Diagnosis (1) Toxic metabolic encephalopathy: Status: Acute Code(s): G92.8 - Other toxic encephalopathy Plan #Septic shock due to UTI Urine cultures grew MRSA. Weaned off of pressors. Blood pressure still running low also on midodrine. On stress dose of steroids which have been decreased to 50 mg of hydrocortisone daily. On vancomycin, to complete 10 days of antibiotics. DC stress dose of steroids today #DKA: Resolved. #Known anion gap metabolic acidosis: There was concern for RTA. On oral bicarbonate. #Elevated troponin: Thought to be due to demand ischemia in the setting of sepsis. No further workup indicated. #Hypokalemia: Replace and monitor. #Benign essential hypertension: Atenolol held in light of the hypotension for which she is on midodrine #Hyperlipidemia: On statin. This is on hold as well as the fenofibrate #Type 2 diabetes mellitus: DKA has resolved as stated above. On Lantus but decrease to 8 units. Insulin sliding scale. Accu-Cheks ACHS. #History of multiple sclerosis with severe debility Hospice consulted and they state they will reevaluate patient in her long-term tomorrow upon discharge. #Depression and anxiety: Oral meds held pending speech therapy evaluation. DVT prophylaxis: Lovenox CODE STATUS: DNR CCA no intubation Disposition: Hospice was consulted and per case management they said they were going to evaluate patient in her long-term. Patient therefore likely to be discharged tomorrow and hospice will transfer her to her home. Allergies/Procedures Done in Hospital Allergies naproxen Allergy (Verified 01/03/25 21:56) Rash Penicillins Allergy (Verified 01/03/25 21:56) Rash Sulfa (Sulfonamide Antibiotics) Allergy (Verified 01/03/25 21:56) Rash tizanidine Adverse Reaction (Verified 01/03/25 21:56) Unknown Procedures: None Type of Care/Length of Stay Estimated LOS: Convalescent Care Less Than 30 days Type of Care Needed: Skilled Rehab Potential: Poor Prognosis: Poor Additional Orders/Day of Discharge Day of Discharge: 01/09/25 Dietary and Speech Recommendations Dietitian Recommendations/Changes: Continue Carbohydrate Controlled diet with texture/consistency per [employer]CR[employer]. Will discontinue 4 oz Glucerna Shake 4x/day w/ medpass d/t pt refusing. Will order 8oz [place] Breakfast Essentials (thickened per [employer]CRET[employer]) TID with meals to provide supplemental energy. Discharge Plan Admission Admit Date/Time: 01/04/25 02:35 Primary Reason for Your Visit: septic shock due to UTI Attending Provider: Rina Diaz Primary Care Provider: Breanne Ruiz Consulting Providers: Willian Fuller; Maile Apodaca Instructions Patient Instructions: ED UTIs Women Discharge Orders/Prescriptions Prescriptions: New midodrine 5 mg Tablet 10 mg PO TIDCM 30 Days Qty: 180 1RF sodium bicarbonate 650 mg Tablet 650 mg PO 4X/DAY 30 Days Qty: 120 0RF Continued acetaminophen 500 MG tablet 1,000 mg PO Q4H PRN PRN (Reason: Pain) atorvastatin [Lipitor] 10 mg tablet 10 mg PO QHS sennosides-docusate sodium [Senna Plus] 8.6-50 mg tablet 1 tab-cap PO DAILY loratadine [Allerclear] 10 mg tablet 10 mg PO DAILY fenofibrate 54 mg tablet 54 mg PO DAILY Trulicity 1.5 mg/0.5 mL pen injector 1.5 mg subcut QWEEK Rx Instructions: THURSDAYS lidocaine [Aspercreme (lidocaine)] 4 % adhesive patch,medicated 1 patch topical DAILY Rx Instructions: right thigh Lactobacillus rhamnosus GG 10 billion cell capsule 1 cap PO DAILY escitalopram oxalate [Lexapro] 10 mg tablet 10 mg PO DAILY nitroglycerin 0.4 mg tablet, sublingual 0.4 mg sublingual Q5M Rx Instructions: do not exceed 3 doses per episode oxycodone 5 mg tablet 2.5 mg PO Q4H Discontinued atenolol 25 tablet 25 mg PO DAILY ciprofloxacin HCl [Cipro] 250 mg tablet 250 mg PO BID Referrals / Follow Up: Breanne Ruiz MD [Primary Care Provider] - Disposition Disposition (needs filled in before D/C Order can be placed): Hospice in Medical Facility
--- NOTE | 2025-01-09 15:39 | DS.PCM_ITS ---
Providers Date of Admission: 01/04/25 Primary Care Physician: Dr. Breanne Ruiz MD Consultations 01/04/25 03:45 Consult: Member [employer] / Pulmonary Medicine Routine Consulting Provider: Intensivists/Pulmonary Med Reason for Consult: Sepsis with Septic Shock 2/2 UTI w/ Septic Encepalopathy. EMERGENT Consult: No MD Notified: Yes Date Notified: 01/04/25 Time Notified: 05:31 Method of Notification: Text 01/04/25 09:43 Consult: Onc/Wound/tub washer Routine Comment: Reason for Consult:: wound coccyx/buttocks Reason For Visit: SEPSIS WITH SEPTIC SHOCK 2/2 UTI W/SEPTIC Diagnosis Discharge Diagnosis (1) Toxic metabolic encephalopathy: Status: Acute Code(s): G92.8 - Other toxic encephalopathy Plan #Septic shock due to UTI * Urine cultures grew MRSA. Weaned off of pressors. * Blood pressure still running low also on midodrine. On stress dose of steroids which have been decreased to 50 mg of hydrocortisone daily. * On vancomycin, to complete 10 days of antibiotics. * DC stress dose of steroids today * #DKA: Resolved. #Known anion gap metabolic acidosis: There was concern for RTA. On oral bicarbonate. #Elevated troponin: Thought to be due to demand ischemia in the setting of sepsis. No further workup indicated. #Hypokalemia: Replace and monitor. #Benign essential hypertension: Atenolol held in light of the hypotension for which she is on midodrine #Hyperlipidemia: On statin. This is on hold as well as the fenofibrate #Type 2 diabetes mellitus: DKA has resolved as stated above. On Lantus but decrease to 8 units. Insulin sliding scale. Accu-Cheks ACHS. #History of multiple sclerosis with severe debility * Hospice consulted and they state they will reevaluate patient in her custodial tomorrow upon discharge. #Depression and anxiety: Oral meds held pending speech therapy evaluation. DVT prophylaxis: Lovenox CODE STATUS: DNR CCA no intubation Disposition: Hospice was consulted and per case management they said they were going to evaluate patient in her custodial. Patient therefore likely to be discharged tomorrow and hospice will transfer her to her home. Medications at Discharge Home Medications acetaminophen 500 mg tablet 1,000 mg PO Q4H PRN PRN Pain 07/03/18 Lactobacillus rhamnosus GG 10 billion cell capsule 1 cap PO DAILY 01/03/25 atorvastatin 10 mg tablet (Lipitor) 10 mg PO QHS 01/03/25 dulaglutide 1.5 mg/0.5 mL subcutaneous pen injector (Trulicity) 1.5 mg subcut QWEEK 01/03/25 escitalopram oxalate 10 mg tablet (Lexapro) 10 mg PO DAILY 01/03/25 fenofibrate 54 mg tablet 54 mg PO DAILY 01/03/25 lidocaine 4 % topical patch (Aspercreme (lidocaine)) 1 patch topical DAILY 01/03/25 loratadine 10 mg tablet (Allerclear) 10 mg PO DAILY 01/03/25 nitroglycerin 0.4 mg sublingual tablet 0.4 mg sublingual Q5M 01/03/25 oxycodone 5 mg tablet 2.5 mg PO Q4H pain 01/03/25 sennosides 8.6 mg-docusate sodium 50 mg tablet (Senna Plus) 1 tab-cap PO DAILY 01/03/25 midodrine 5 mg tablet 10 mg (2 x 5 mg) PO TIDCM 30 days #180 tabs 01/09/25 sodium bicarbonate 650 mg tablet 650 mg PO 4X/DAY 30 days #120 tabs 01/09/25 Weight / BMI Weight Weight: 144 lb 13.499 oz Body Mass Index (BMI) 24.0 ABG / Lab / Microbiology Data 01/09/25 05:50 01/09/25 05:50 Laboratory: Laboratory Results - last 24 hr 01/08/25 16:41: POC Glucose 154 H 01/08/25 22:20: POC Glucose 145 H 01/08/25 22:29: Random Vancomycin 24.3 H 01/09/25 05:50: WBC 7.4, RBC 4.05 L, Hgb 9.6 L, Hct 32.6 L, MCV 80.5 L, MCH 23.7 L, MCHC 29.4 L, RDW Std Deviation 54.0 H, RDW Coeff of Hung 19.0 H, Plt Count 214, MPV 9.0, Neut % (Auto) Not Reportable, Absolute Neuts (auto) 4.3, Absolute Lymphs (auto) 1.60, Total Counted 100, Neutrophils % (Manual) 58, Lymphocytes % (Manual) 21, Monocytes % (Manual) 12 H, Basophils % (Manual) 1, Metamyelocytes % 2 H, Myelocytes % 6 H, Platelet Estimate ADEQUATE, RBC Morphology NORM C+C, Sodium 144, Potassium 2.9 L, Chloride 112 H, Carbon Dioxide 14.0 L, Anion Gap 17 H, BUN 17, Creatinine 1.08, Estim Creat Clear Calc 46.11 L, Est GFR (MDRD) Non- Af 57 L, BUN/Creatinine Ratio 16.0, Glucose 101 H, Calcium 8.2 01/09/25 06:26: POC Glucose 114 H Microbiology: Microbiology 01/03/25 22:12 Blood Culture (Wb) - Anticubital Left Blood Culture - Final No growth in 5 days. 01/03/25 22:12 Blood Culture (Wb) - Anticubital Right Blood Culture - Final No growth in 5 days. 01/03/25 22:21 Urine Catheter - Mac Urine Culture - Final Staphylococcus aureus 01/04/25 07:15 Nasal Secretion MRSA (PCR) - Final Meth. resistant Staph. aureus 01/04/25 05:30 Mucosa - Nasopharyngeal Respiratory Panel (PCR) - Final 01/03/25 22:21 Urine Catheter - Mac Streptococcus pneumoniae Antigen (M - Final 01/03/25 22:21 Urine Catheter - Mac Legionella Antigen - Final 01/04/25 04:55 Stool Stool Occult Blood (VIDHYA) - Final D/C Instructions Weight Bearing Status: Weight bearing as tolerated Call your doctor if you observe: Fever of 101 or Higher, Shortness of breath, Dizziness, Swelling in the ankles and Chest pain DC O2, CPAP, BIPAP Needs Home O2 Discharge instructions: No Discharge Plan Admission Admit Date/Time: 01/04/25 02:35 Primary Reason for Your Visit: septic shock due to UTI Attending Provider: Rina Diaz Primary Care Provider: Breanne Ruiz Consulting Providers: Willian Fuller; Maile Apodaca Instructions Patient Instructions: ED UTIs Women Discharge Orders/Prescriptions Prescriptions: New midodrine 5 mg Tablet 10 mg PO TIDCM 30 Days Qty: 180 1RF sodium bicarbonate 650 mg Tablet 650 mg PO 4X/DAY 30 Days Qty: 120 0RF Continued acetaminophen 500 MG tablet 1,000 mg PO Q4H PRN PRN (Reason: Pain) atorvastatin [Lipitor] 10 mg tablet 10 mg PO QHS sennosides-docusate sodium [Senna Plus] 8.6-50 mg tablet 1 tab-cap PO DAILY loratadine [Allerclear] 10 mg tablet 10 mg PO DAILY fenofibrate 54 mg tablet 54 mg PO DAILY Trulicity 1.5 mg/0.5 mL pen injector 1.5 mg subcut QWEEK Rx Instructions: THURSDAYS lidocaine [Aspercreme (lidocaine)] 4 % adhesive patch,medicated 1 patch topical DAILY Rx Instructions: right thigh Lactobacillus rhamnosus GG 10 billion cell capsule 1 cap PO DAILY escitalopram oxalate [Lexapro] 10 mg tablet 10 mg PO DAILY nitroglycerin 0.4 mg tablet, sublingual 0.4 mg sublingual Q5M Rx Instructions: do not exceed 3 doses per episode oxycodone 5 mg tablet 2.5 mg PO Q4H Discontinued atenolol 25 tablet 25 mg PO DAILY ciprofloxacin HCl [Cipro] 250 mg tablet 250 mg PO BID Referrals / Follow Up: Breanne Ruiz MD [Primary Care Provider] - Disposition Disposition (needs filled in before D/C Order can be placed): Hospice in Medical Facility
--- NOTE | 2025-01-09 15:49 | CASEMGMT ---
Social Work Physician updated and pt is ready for discharge today.? Transportation arranged with [facility] for 15:30 pickup via cot as set up by [facility].? Bedside nurse notified of discharge time. Disposition:[facility]; with hospice services KAILEE Cai
== END 2025-01-09 15:49 | disposition hospice, inpatient (51) | DRG 871 ==
LOC: ED 01-04 01:34 → ICU 01-04 02:46 → MS3 01-07 17:57
PROVIDERS: Internal Medicine; Internal Medicine Critical Care Medicine; Admitting Provider Internal Medicine; Emergency Provider Emergency Medicine; PCP Internal Medicine; Visit Provider Student in an Organized Health Care Education/Training Program
DX: A41.02 Sepsis due to Methicillin resistant Staphylococcus aureus (principal); R65.21 Severe sepsis with septic shock; G92.8 Other toxic encephalopathy; J18.9 Pneumonia, unspecified organism; I24.89 Other forms of acute ischemic heart disease; N30.00 Acute cystitis without hematuria; E83.39 Other disorders of phosphorus metabolism; D63.8 Anemia in other chronic diseases classified elsewhere; E83.51 Hypocalcemia; Z66 Do not resuscitate; L89.159 Pressure ulcer of sacral region, unspecified stage; L89.309 Pressure ulcer of unspecified buttock, unspecified stage; E86.0 Dehydration; E11.10 Type 2 diabetes mellitus with ketoacidosis without coma; G35 Multiple sclerosis; I10 Essential (primary) hypertension; F32.A Depression, unspecified; E87.5 Hyperkalemia; D75.839 Thrombocytosis, unspecified; E78.5 Hyperlipidemia, unspecified; I95.9 Hypotension, unspecified; M19.90 Unspecified osteoarthritis, unspecified site; E87.6 Hypokalemia; T40.2X5A Adverse effect of other opioids, initial encounter; R09.02 Hypoxemia; N25.89 Other disorders resulting from impaired renal tubular function; G89.4 Chronic pain syndrome; R53.81 Other malaise; Z79.899 Other long term (current) drug therapy; Z79.85 Long-term (current) use of injectable non-insulin antidiabetic drugs; Z90.49 Acquired absence of other specified parts of digestive tract
CPT/HCPCS: 36415; 36556; 36600; 51702; 70450; 71045; 71250; 74176; 80048; 80051; 80053; 80061; 80179; 80202; 80307; 81001; 82010; 82077; 82088; 82274; 82436; 82550; 82607; 82728; 82746; 82803; 82962; 83540; 83550; 83605; 83735; 83986; 84100; 84133; 84300; 84443; 84484; 85018; 85025; 85027; 85045; 85610; 85730; 87040; 87077; 87086; 87088; 87186; 87449; 87633; 87641; 92526; 92610; 93005; 99285; A4216; C1751; J0612; J0696